=== PATIENT | female | born 1950 | race Caucasian/White ===

== ENCOUNTER 2023-01-23 11:30 | Outpatient (OUT) | payer MEDICARE, OTHER, SELFPAY ==
[2023-01-23 12:28] LABS: Hematocrit 35.1 % (36.0-48.0); Hemoglobin 12.2 g/dL (12.0-16.0); Mean Corpuscular HGB Conc 34.8 g/dL (29.9-35.2); Mean Corpuscular Hemoglobin 29.7 pg (26.7-34.0); Mean Corpuscular Volume 85.4 fL (81.0-99.0); Mean Platelet Volume 10.6 fL (9.5-13.5); Platelet Count 220 10^3/uL (150-450); Red Blood Count 4.11 10^6/uL (4.20-5.40); Red Cell Distribution Width 13.6 % (11.0-15.0); White Blood Count 10.2 10^3/uL (4.0-11.0)
[2023-01-23 12:40] LABS: Percent Iron Saturation 22.4 %
[2023-01-23 12:43] LABS: Albumin Level 3.3 g/dL (3.4-5.0); Anion Gap 12.2; BUN Creatinine Ratio 25.8; Calcium 9.7 mg/dL (8.5-10.1); Carbon Dioxide 29.1 mmol/L (21.0-32.0); Chloride 99 mmol/L (98-107); Estimated GFR (African America 28 (>=60); Estimated GFR (Non-African Ame 23 (>=60); Glucose 159 mg/dL (74-106); Magnesium 2.1 mg/dL (1.8-2.4); Phosphorus 4.8 mg/dL (2.6-4.7); Potassium 3.3 mmol/L (3.5-5.1); Sodium 137 mmol/L (136-145); Uric Acid 6.4 mg/dL (2.6-6.0)
[2023-01-23 12:53] LABS: Bilirubin Urine NEGATIVE (NEGATIVE); Blood Urine TRACE-I (NEGATIVE); Clarity Urine CLEAR (CLEAR); Color Urine LT. YELLOW (YELLOW); Glucose Urine UA NEGATIVE (NEGATIVE); Ketones Urine NEGATIVE (NEGATIVE); Leukocyte Esterase Urine NEGATIVE (NEGATIVE); Nitrite Urine NEGATIVE (NEGATIVE); Protein Urine 100 mg/dL (NEG/TRACE); Specific Gravity Urine 1.015 (1.005-1.025); Urobilinogen Urine 0.2 EU/dL (0.2-1.0)
[2023-01-23 13:06] LABS: RBC Urine 0-2 #/HPF (0-2); WBC Urine NONE SEEN #/HPF (NONE SEEN)
[2023-01-23 13:07] LABS: Bacteria Urine NONE SEEN #/HPF (NONE SEEN); Cast Seen? SEEN #/LPF (NONE SEEN); Hyaline Casts Urine FEW; Mucus Urine TRACE (NONE SEEN); Squamous Epithelial Cell Urine RARE #/LPF (NONE/RARE)
[2023-01-23 13:14] LABS: Creatinine Urine Random 53.55 mg/dL (20.00-300.00); Protein Creatinine Ratio Urine 1.21; Total Protein Urine Random 64.6 mg/dL (<=11.9)
[2023-01-24 11:20] LABS: PTH, Intact 41 pg/mL (15-65)
== END 2023-01-23 11:31 | disposition home or self-care (01) ==
LOC: LAB 11:34
PROVIDERS: PCP Family Medicine; Visit Provider Internal Medicine
DX: I12.9 Hypertensive chronic kidney disease with stage 1 through stage 4 chronic kidney disease, or unspecified chronic kidney disease (principal); N18.4 Chronic kidney disease, stage 4 (severe); E11.22 Type 2 diabetes mellitus with diabetic chronic kidney disease; N25.81 Secondary hyperparathyroidism of renal origin; E79.0 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 inflammatory arthritis and tophaceous disease; R31.29 Other microscopic hematuria; E87.6 Hypokalemia; E61.1 Iron deficiency
CPT/HCPCS: 36415; 80069; 81001; 82306; 82570; 82728; 83540; 83550; 83735; 83970; 84156; 84550; 85027

== ENCOUNTER 2023-05-23 09:23 | Outpatient (OUT) | payer MEDICARE, OTHER, SELFPAY ==
[2023-05-23 09:51] LABS: Hematocrit 36.2 % (36.0-48.0); Hemoglobin 12.3 g/dL (12.0-16.0); Mean Corpuscular Hemoglobin 28.8 pg (26.7-34.0); Mean Corpuscular Volume 84.8 fL (81.0-99.0); Mean Platelet Volume 10.8 fL (9.5-13.5); Platelet Count 224 10^3/uL (150-450); Red Blood Count 4.27 10^6/uL (4.20-5.40); Red Cell Distribution Width 13.8 % (11.0-15.0)
[2023-05-23 09:57] LABS: Bilirubin Urine NEGATIVE (NEGATIVE); Blood Urine SMALL (NEGATIVE); Clarity Urine CLEAR (CLEAR); Color Urine LT. YELLOW (YELLOW); Glucose Urine UA NEGATIVE (NEGATIVE); Ketones Urine NEGATIVE (NEGATIVE); Leukocyte Esterase Urine NEGATIVE (NEGATIVE); Nitrite Urine NEGATIVE (NEGATIVE); Protein Urine 100 mg/dL (NEG/TRACE); Urobilinogen Urine 0.2 EU/dL (0.2-1.0); pH Urine 5.5 (5.0-9.0)
[2023-05-23 10:01] LABS: Creatinine Urine Random 95.45 mg/dL (20.00-300.00); Protein Creatinine Ratio Urine 1.08; Total Protein Urine Random 102.7 mg/dL (<=11.9)
[2023-05-23 10:05] LABS: Bacteria Urine NONE SEEN #/HPF (NONE SEEN); Crystals Seen? None Seen #/HPF (None Seen); Mucus Urine NONE SEEN (NONE SEEN); RBC Urine 0-2 #/HPF (0-2); Squamous Epithelial Cell Urine RARE #/LPF (NONE/RARE); WBC Urine NONE SEEN #/HPF (NONE SEEN)
[2023-05-23 10:06] LABS: Cast Seen? SEEN #/LPF (NONE SEEN); Hyaline Casts Urine RARE
[2023-05-23 10:14] LABS: Albumin Level 3.2 g/dL (3.4-5.0); Anion Gap 12.5; BUN Creatinine Ratio 23.5; Calcium 9.4 mg/dL (8.5-10.1); Carbon Dioxide 30.5 mmol/L (21.0-32.0); Chloride 96 mmol/L (98-107); Estimated GFR (African America 29 (>=60); Estimated GFR (Non-African Ame 24 (>=60); Glucose 135 mg/dL (74-106); Phosphorus 4.6 mg/dL (2.6-4.7); Sodium 136 mmol/L (136-145); Uric Acid 5.5 mg/dL (2.6-6.0)
[2023-05-23 11:47] LABS: Percent Iron Saturation 18.3 %
[2023-05-24 12:08] LABS: PTH, Intact 32 pg/mL (15-65)
== END 2023-05-23 09:24 | disposition home or self-care (01) ==
LOC: LAB 09:23
PROVIDERS: PCP Family Medicine; Visit Provider Internal Medicine
DX: N18.4 Chronic kidney disease, stage 4 (severe) (principal); I12.9 Hypertensive chronic kidney disease with stage 1 through stage 4 chronic kidney disease, or unspecified chronic kidney disease; E11.22 Type 2 diabetes mellitus with diabetic chronic kidney disease; N25.81 Secondary hyperparathyroidism of renal origin; E79.0 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 inflammatory arthritis and tophaceous disease; R31.29 Other microscopic hematuria; E87.6 Hypokalemia; D63.1 Anemia in chronic kidney disease
CPT/HCPCS: 36415; 80069; 81001; 82306; 82570; 82728; 83540; 83550; 83735; 83970; 84156; 84550; 85027

== ENCOUNTER 2023-05-26 10:14 | Outpatient (OUT) | payer MEDICARE, OTHER, SELFPAY ==
--- NOTE | 2023-05-26 10:17 | MM_ITS ---
Patient Name: MADY ESTRELLA MR#: [id number] : 1950 Exam Date: 05/26/2023 Ordering Doctor: DR ROCCO GALINDO D.O. RADIOLOGY REPORT PROCEDURE: MM TOMOSYNTHESIS SCREENING BI COMPARISON: MG MAMM SCREEN 3D STIVEN CAD, 12/29/2020. MG MAMM SCREEN STIVEN W CAD, 11/13/2018. MG MAMM SCREEN STIVEN W CAD, 06/09/2017. MG MAMM STIVEN SCRN W CAD DIG, 05/25/2016. INDICATIONS: Screening Calculator Name NCI Breast Cancer Risk Assessment Tool 5 Year Breast Cancer Risk 1.60% Lifetime Breast Cancer Risk 4.10% Personal Breast Cancer No Personal Ovarian Cancer No Treatments None Family Cancers None LOCATION: [facility] BREAST COMPOSITION: Scattered areas fibroglandular density. FINDINGS: DIAGNOSTIC CATEGORY 1--NEGATIVE. RIGHT BREAST: No significant suspicious finding. No significant change has occurred. LEFT BREAST: No significant suspicious finding. No significant change has occurred. RECOMMENDATIONS: ROUTINE MAMMOGRAM AND CLINICAL EVALUATION IN 12 MONTHS. PLEASE NOTE: A NORMAL MAMMOGRAM DOES NOT EXCLUDE THE POSSIBILITY OF BREAST CANCER. A CLINICALLY SUSPICIOUS PALPABLE LUMP SHOULD BE BIOPSIED. Dictated by: Loco Michelle M.D. on 05/31/2023 at 11:45 Approved by: Loco Michelle M.D. on 05/31/2023 at 11:52
== END 2023-05-26 10:15 | disposition home or self-care (01) ==
LOC: MAMMO 10:14
PROVIDERS: PCP Family Medicine; Visit Provider Family Medicine
DX: Z12.31 Encounter for screening mammogram for malignant neoplasm of breast (principal); E11.21 Type 2 diabetes mellitus with diabetic nephropathy; E03.9 Hypothyroidism, unspecified
CPT/HCPCS: 77063; 77067

== ENCOUNTER 2023-08-09 10:04 | Outpatient (OUT) | payer MEDICARE, OTHER, SELFPAY ==
--- OUTSIDE RECORDS SUMMARY | 2023-08-09 10:20 | XMS_ITS | CCD ---
Author Name Unknown Address [address] [place] [address] Organization [facility] Care Team Providers Care Rehabilitation Caseworker Name Role Phone JOHN PERDOMO Referring Unavailable PERDOMO, JOHN Primary Care Unavailable MOUKARBKARTHIK SEPULVEDA V Attending Unavailable MOUKARBEL, KARTHIK Resendiz Admitting Unavailable Mary Grace, Geneva Unavailable JOSIE, DR JOHN Mcdonough Primary Care Unavailable BOBBY, CARMINA Consulting Unavailable BOBBY, CARMINA Admitting Unavailable BOBBY, CARMINA Attending Unavailable PERDOMO, DR JOHN Mcdonough Primary Care Unavailable PERDOMO, DR JOHN Mcdonough Admitting Unavailable PERDOMO, DR JOHN Mcdonough Attending Unavailable PERDOMO, DR JOHN Mcdonough Consulting Unavailable PERDOMO, DR JOHN Mcdonough Primary Care Unavailable MARY GRACEGENEVA Admitting Unavailable MARY GRACEGENEVA Attending Unavailable MARY GRACE, GENEVA Consulting Unavailable PERDOMO, DR JOHN Mcdonough Primary Care Unavailable PERDOMO, DR JOHN Mcdonough Admitting Unavailable PERDOMO, DR JOHN Mcdonough Attending Unavailable PERDOMO, DR JOHN Mcdonough Consulting Unavailable NEFCY, BETSY Consulting Unavailable PERDOMO, DR JOHN Mcdonough Primary Care Unavailable MOUKARBEL, DR ANGELES Consulting Unavailable MOUKARBEL, DR ANGELES Admitting Unavailable MOUKARBEL, DR ANGELES Attending Unavailable MOUKARBEL, DR ANGELES Consulting Unavailable MOUKARBEL, DR ANGELES Admitting Unavailable MOUKARBEL, DR ANGELES Attending Unavailable PERDOMO, DR JOHN Mcdonough Primary Care Unavailable BOBBY, CARMINA Admitting Unavailable BOBBY, CARMINA Attending Unavailable BOBBY, CARMINA Consulting Unavailable MARY GRACE, GENEVA Primary Care Unavailable PERDOMO, DR JOHN Mcdonough Primary Care Unavailable BOBBY, CARMINA Consulting Unavailable BOBBY, CARMINA Admitting Unavailable BOBBY, CARMINA Attending Unavailable PERDOMO, DR JOHN Mcdonough Primary Care Unavailable TIMMIS, DR CARRION Consulting Unavailable TIMMIS, DR CARRION Admitting Unavailable TIMMIS, DR CARRION Attending Unavailable ZIEBER, DR RENETTA Abreu Consulting Unavailable MARY GRACE, GENEVA Consulting Unavailable MARY GRACE, GENEVA Admitting Unavailable MARY GRACE, GENEVA Attending Unavailable PERDOMO, DR JOHN Mcdonough Primary Care Unavailable PERDOMO, DR JOHN Mcdonough Primary Care Unavailable MOUKARBEL, DR ANGELES Consulting Unavailable MOUKARBEL, DR ANGELES Admitting Unavailable MOUKARBEL, DR ANGELES Attending Unavailable PERDOMO, DR JOHN Mcdonough Primary Care Unavailable MOUKARBEL, DR ANGELES Attending Unavailable MOUKARBEL, DR ANGELES Consulting Unavailable MOUKARBEL, DR ANGELES Admitting Unavailable PERDOMO, DR JOHN Mcdonough Primary Care Unavailable SAMSA ., THANIA Admitting Unavailable SAMSA ., THANIA Attending Unavailable SAMSA ., THANIA Consulting Unavailable PERDOMO, DR JOHN Mcdonough Primary Care Unavailable MARY GRACE, GENEVA Consulting Unavailable MARY GRACE, GENEVA Admitting Unavailable MARY GRACE, GENEVA Attending Unavailable MOUKARBEL, DR ANGELES Consulting Unavailable MOUKARBEL, DR ANGELES Admitting Unavailable MOUKARBEL, DR ANGELES Attending Unavailable PERDOMO, DR JOHN Mcdonough Primary Care Unavailable PERDOMO, DR JOHN Mcdonough Primary Care Unavailable PERDOMO, DR JOHN Mcdonough Referring Unavailable MARY GRACE, GENEVA Consulting Unavailable MARY GRACE, GENEVA Admitting Unavailable MARY GRACE, GENEVA Attending Unavailable BOBBY, CARMINA Admitting Unavailable BOBBY, CARMINA Attending Unavailable MARY GRACE, GENEVA Primary Care Unavailable ZIEBER, DR RENETTA Abreu Consulting Unavailable BOBBY, CARMINA Consulting Unavailable MOUKARBEL, DR ANGELES Consulting Unavailable MOUKARBEL, DR ANGELES Admitting Unavailable MOUKARBEL, DR ANGELES Attending Unavailable PERDOMO, DR JOHN Mcdonough Primary Care Unavailable PERDOMO, DR JOHN Mcdonough Primary Care Unavailable BOBBY, CARMINA Consulting Unavailable BOBBY, CARMINA Admitting Unavailable BOBBY, CARMINA Attending Unavailable PERDOMO, DR JOHN Mcdonough Primary Care Unavailable MARY GRACE, GENEVA Admitting Unavailable MARY GRACE, GENEVA Attending Unavailable MARY GRACE, GENEVA Consulting Unavailable MOUKARBEL, KARTHIK Attending Unavailable MOUKARBEL, KARTHIK Attending Unavailable BOBBY, CARMINA Attending Unavailable Allergies Allergy Classification Reported Allergen(s) Allergy Type Date of Onset Reaction(s) Facility (2 sources) Erythromycin; Translations: [ERYTHROMYCIN] Drug Allergy 1 [facility] Repository (2 sources) HYDROmorphone Drug Allergy 1 [facility] Repository (2 sources) Penicillins; Translations: [PENICILLINS] Drug allergy (disorder) 1 [facility] Repository (20 sources) Erythromycin Drug Allergy anaphylaxis [facility] Other (20 sources) HYDROmorphone; Translations: [HYDROMORPHONE] Drug Allergy 2 Unknown [facility] Repository (20 sources) Penicillin Drug Allergy Unknown [facility] Other (20 sources) Penicillin G Benzathine Drug allergy hives [facility] [place] Other (2 sources) Erythromycin; Translations: [ERYTHROMYCIN BASE] Drug Allergy 0 [facility] Repository (1 source) Penicillin Drug Allergy [facility] Repository (2 sources) Spironolactone Drug Allergy rash [facility] Other Medications Current Medications Medication Drug Class(es) Dates Sig (Normalized) Sig (Original) allopurinol 100 mg oral tablet (20 sources) Xanthine Oxidase Inhibitor take 1 tablet by mouth every twenty-four hours Allopurinol 100 MG 1 tablet Orally Once a day for 90 day(s) Active amLODIPine 10 mg oral tablet (20 sources) Dihydropyridine Calcium Channel Ranjit take 1 tablet by mouth every twenty-four hours amLODIPine Besylate 10 MG 1 tablet Orally Once a day Active aspirin 81 mg delayed release oral tablet (20 sources) Platelet Aggregation Inhibitor, Nonsteroidal Anti-inflammatory Drug take 1 tablet by mouth every twenty-four hours Aspirin 81 81 MG 1 tablet Orally Once a day Active take 1 tablet by mouth once alayna y Aspirin 81 81 MG 1 tablet Orally Once a day Active take 1 tablet by mouth once alayna y Aspirin 81 81 MG 1 tablet Orally Once a day Active take 1 tablet by mouth every oth day Aspirin 81 81 MG 1 tablet Orally EVERY OTHER DAY Active atorvastatin 40 mg oral tablet (20 sources) HMG-CoA Reductase Inhibitor take 1 tablet by mouth every twenty-four hours Atorvastatin Calcium 40 MG 1 tablet Orally Once a day Active Basaglar KwikPen 100 units/mL (20 sources) Basaglar KwikPen 100 units/mL 15 units SQ three times a day prn *please review for potential _update for e-prescription and drug interaction check* Active bimatoprost 0.1 mg/ml ophthalmic solution (3 sources) Prostaglandin Analog take 1 drop(s) into the eye(s) once daily in the evening Lumigan 0.01 % 1 drop into affected eye in the evening Ophthalmic Once a day Active bumetanide 2 mg oral tablet (20 sources) Loop Diuretic take 1 tablet by mouth twice daily Bumetanide 2 MG 1 1/2 TABLETS Orally TWICE A DAY Active take 0.5 tablet by mouth twice d aily Bumetanide 2 MG 1/2 TABLET Orally TWICE A DAY Active clopidogrel 75 mg oral tablet (3 sources) P2Y12 Platelet Inhibitor take 1 tablet b y mouth every twenty-four hours Clopidogrel Bisulfate 75 MG 1 tablet Orally Once a day Active cycloSPORINE 0.5 mg/ml ophthalmic suspension (20 sources) Calcineurin Inhibitor Immunosuppressant take 1 drop(s) into the eye(s) once daily Restasis 0.05 % 1 drop into affected eye Ophthalmic ONCE A DAY Active take 1 drop(s) into the eye(s) once daily Restasis 0.05 % 1 drop into affected eye Ophthalmic ONCE A DAY Active dorzolamide (6 sources) Carbonic Anhydrase Inhibitor take 1 drop(s) into the eye(s) three times daily Dorzolamide HCl 2 % 1 drop into affected eye Ophthalmic Three times a day Active take 1 drop(s) into the eye(s) three times daily Dorzolamide HCl 2 % 1 drop into affected eye Ophthalmic Three times a day Active Dorzolamide HCl Active dorzolamide 20 mg/ml / timolol 5 mg/ml ophthalmic solution (2 sources) Carbonic Anhydrase Inhibitor, beta-Adrenergic Ranjit Dorzolamide HCl-Timolol Mal 2-0.5 % 1 drop into affected eye Ophthalmic Twice a day Active doxazosin 4 mg oral tablet (20 sources) alpha-Adrenergic Ranjit take 1 tablet b y mouth twice daily Doxazosin Mesylate 4 MG 1 1/2 TABLETS Orally TWICE A DAY Active ergocalciferol 1.25 mg oral capsule (20 sources) Provitamin D2 Compound take 1 capsule by mouth every week Vitamin D (Ergocalciferol) 1.25 MG (24742 UT) TAKE 1 CAPSULE BY MOUTH ONE TIME PER WEEK for 84 Active take 1 capsule by mo uth every other week Ergocalciferol 1.25 MG (75082 UT) 1 caps ule Orally Q2 week for 90 days Active ferrous sulfate 325 mg oral tablet (20 sources) take 1 tablet by yossi th every other day Ferrous Sulfate 325 (65 Fe) MG TAKE 1 TABLET BY MOUTH EVERY OTHER DAY for 90 Active take 1 tablet by mouth every oth er day Ferrous Sulfate 325 (65 Fe) MG TAKE 1 TABLET BY MOUTH EVERY OTHER DAY for 90 Active Ferrous Sulfate 325 (65 Fe) MG TAKE 1 TABLET BY MOUTH EVERY OTHER DAY FOR 90 DAYS for 90 Active hydrALAZINE hydrochloride 25 mg oral tablet (20 sources) Arteriolar Vasodilator Start: 09-20-2021 take 1 tablet by mouth every twelve hours hydrALAZINE HCl 25 MG 1 tablet with food Orally bid for 90 day(s) Aug, Active take 1 tablet by yossi th every eight hours hydrALAZINE HCl 25 MG 1 tablet with food Orally Three times a day for 90 day(s) Active Iron (3 sources) Iron 325 (65 Fe) MG TAKE 1 TABLET BY MOUTH EVERY OTHER DAY Orally EVERY OTHER DAY for 90 days Active take 1 tablet by mouth every oth er day Iron 325 (65 Fe) MG TAKE 1 TABLET BY MOUTH EVERY OTHER DAY for 90 Active isosorbide dinitrate 30 mg oral tablet (5 sources) Nitrate Vasodilator take 1 tablet by yossi th every twenty-four hours Isosorbide Dinitrate 30 MG 1 tablet Orally ONCE A DAY Active take 1 tablet by yossi th every twenty-four hours Isosorbide Dinitrate 40 MG 1 tablet Orally ONCE A DAY Active latanoprost 0.05 mg/ml ophthalmic solution (12 sources) Prostaglandin Analog take 1 drop(s) into the eye(s) once daily in the evening Latanoprost 0.005 % 1 drop into affected eye in the evening Ophthalmic Once a day Active take 1 drop(s) into the eye(s) once daily in the evening Latanoprost 0.005 % 1 drop into affected eye in the evening Ophthalmic Once a day Active levothyroxine sodium 0.05 mg oral tablet (20 sources) l-Thyroxine take 1 tablet by mouth once daily in the morning Levothyroxine Sodium 50 MCG 1 tablet in the morning on an empty stomach Orally Once a day Active take 1 tablet by yossi th once daily in the morning Levothyroxine Sodium 50 MCG 1 tablet in the morning on an empty stomach Orally Once a day Active take 1 tablet by yossi th once daily in the morning Levothyroxine Sodium 25 MCG 1 tablet in the morning on an empty stomach Orally Once a day Active metOLazone 2.5 mg oral tablet (20 sources) Thiazide-like Diuretic metOLazon e 2.5 MG 1 tablet Orally MONDAY, MONDAY, MONDAY NEEDED Active metoprolol tartrate 50 mg oral tablet (20 sources) beta-Adrenergic Ranjit Metoprol ol Tartrate 50 MG 1 1/2 tablet with food Orally Twice a day Active potassium chloride 20 meq extended release oral tablet (20 sources) take 2 tablets by mouth three times daily Potassium Chloride ER 20 MEQ TAKE 2 TABLETS BY MOUTH 3 TIMES A DAY for 90 Active Klor-Con M20 20 MEQ TAKE 2 TABLETS BY MOUTH IN THE MORNING, 2 TABLETS AT NOON, AND 1 TABLET IN THE EVENING for 90 Active take 2 tablets by mo uth every twelve hours Potassium Chloride ER 20 MEQ 2 Tablet Orally bid for 90 days Active Problems Active Problems Problem Classification Problem Date Documented Date Episodic/Chronic Chronic kidney disease (20 sources) Chronic kidney disease stage 4; Translations: [Chronic kidney disease, stage 4 (severe)] Onset: 1 Resolved: 2 Chronic Congestive heart failure; nonhypertensive (11 sources) Chronic diastolic (congestive) heart failure; Translations: [Acute combined systolic (congestive) and diastolic (congestive) heart failure] Onset: 2 Chronic Coronary atherosclerosis and other heart disease (5 sources) Atherosclerotic heart disease of [place] coronary artery without angina pectoris; Translations: [Atherosclerotic heart disease of [place] coronary artery with other forms of angina pectoris] Onset: 2 Chronic Deficiency and other anemia (20 sources) Anemia of renal disease; Translations: [Anemia in chronic kidney disease] Chronic Deficiency and other anemia (2 sources) Anemia in chronic kidney disease Chronic Diabetes mellitus with complications (20 sources) Disorder of kidney due to diabetes mellitus; Translations: [Type 2 diabetes mellitus with diabetic chronic kidney disease] Onset: 1 Resolved: 2 Chronic Essential hypertension (7 sources) Essential (primary) hypertension; Translations: [ESSENTIAL PRIMARY HYPERTENSION] Onset: 2 Chronic Fluid and electrolyte disorders (13 sources) Hypokalemia; Translations: [HYPOKALEMIA] Onset: 1 Resolved: 2 Episodic Genitourinary symptoms and ill-defined conditions (8 sources) Other microscopic hematuria; Translations: [OTHER MICROSCOPIC HEMATURIA] Onset: 1 Resolved: 2 Episodic Heart valve disorders (1 source) Rheumatic disorders of both mitral and tricuspid valves; Translations: [RHEUMATIC D/O MITRAL TRICUSPID VALV] Onset: 2 Chronic Hypertension with complications and secondary hypertension (20 sources) Chronic kidney disease due to hypertension; Translations: [Hypertensive chronic kidney disease with stage 1 through stage 4 chronic kidney disease, or unspecified chronic kidney disease] Onset: 1 Resolved: 2 Chronic Nutritional deficiencies (6 sources) Iron deficiency; Translations: [IRON DEFICIENCY] Onset: 1 Resolved: 2 Episodic Other circulatory disease (2 sources) Orthostatic hypotension; Translations: [Orthostatic hypotension] Onset: 4 Episodic Other connective tissue disease (20 sources) Full thickness rotator cuff tear; Translations: [Complete rotator cuff tear or rupture of left shoulder, not specified as traumatic] Episodic Other diseases of kidney and ureters (20 sources) Secondary hyperparathyroidism; Translations: [Secondary hyperparathyroidism of renal origin] Chronic Other diseases of kidney and ureters (8 sources) Secondary hyperparathyroidism of renal origin; Translations: [SEC HYPERPARATHYROIDISM RENAL ORIGN] Onset: 1 Resolved: 2 Chronic Other non-traumatic joint disorders (20 sources) Arthralgia of the lower leg; Translations: [Right knee pain] Episodic Other nutritional; endocrine; and metabolic disorders (9 sources) 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 inflammatory arthritis and tophaceous disease; Translations: [HU W/O SIGNS IA AND TOPHACEOUS DZ] Onset: 1 Resolved: 2 Episodic Thyroid disorders (20 sources) Non-toxic multinodular goiter; Translations: [Nontoxic multinodular goiter] Onset: 2 Chronic Unclassified (3 sources) CONTACT W/AND (SUSP) EXPOS COVID-19; Translations: [CONTACT W/AND (SUSP) EXPOS COVID-19] Onset: 2 Past or Other Problems Problem Classification Problem Date Documented Da te Episodic/Chronic Coronary atherosclerosis and other heart disease (2 sources) Presence of aortocoronary bypass graft; Translations: [Presence of aortocoronary bypass graft] Onset: 09-12-2022 Episodic Other bone disease and musculoskeletal deformities (1 source) Other specified disorders of bone density and structure, right forearm; Translations: [OTH D/O BONE DEN STRUCT RT FORARM] Onset: 06-04-2022 Episodic Other lower respiratory disease (7 sources) Shortness of breath; Translations: [SHORTNESS OF BREATH] Onset: 12-10-2021 Episodic Other lower respiratory disease (5 sources) Other forms of dyspnea; Translations: [OTHER FORMS OF DYSPNEA] Onset: 05-14-2022 Episodic Other non-traumatic joint disorders (4 sources) Pain in right elbow; Translations: [PAIN IN RIGHT ELBOW] Onset: 06-01-2022 Episodic Residual codes; unclassified (1 source) Localized edema; Translations: [LOCALIZED EDEMA] Onset: 06-18-2022 Episodic Unclassified (20 sources) Sprain of right knee; Translations: [Right knee sprain] Unclassified (1 source) CONTACT W/AND (SUSP) EXPOS COVID-19; Translations: [CONTACT W/AND (SUSP) EXPOS COVID-19] Onset: 12-07-2021 Results Test Name Value Interpretation Reference Range Facility Office Visiton 08-04-2023 Follow-up visit Claudia Estrella 1950 F Date Provider Department Center 08/04/2023 KARTHIK MACKAY AD[facility] Family History Problem Relation Age of Onset Heart attack Mother Heart failure Mother Heart attack Father Family Status - Relation Status Age at Mother Father Level of Service:88682 [place] OFFICE/OUTPATIENT ESTABLISHED MOD MDM 30 MIN Normal [facility] Office Visiton 02-24-2023 Follow-up visit Claudia Estrella 1950 F Date Provider Department Center 02/24/2023 CARMINA REAVES ADY [facility] Family History Problem Relation Age of Onset Heart attack Mother Heart failure Mother Heart attack Father Family Status - Relation Status Age at Mother Father Level of Service:44707 [place] OFFICE/OUTPATIENT ESTABLISHED LOW MDM 20-29 MIN Normal [facility] Orders Onlyon 12-09-2022 Orders Only [id number] Claudia Estrella Kaetrin 1950 F Date Provider Department Center 12/09/2022 FRANCIS MUÑOZ [facility] Family History Problem Relation Age of Onset Heart attack Mother Heart failure Mother Heart attack Father Family Status - Relation Status Age at Mother Father Normal [facility] 36on 10-26-2022 36 [facility] lab called to report a critical BNP of 1458. Normal [facility] BNPon 10-26-2022 Natriuretic peptide B (Bld) [Mass/Vol] 1458.0 pg/mL Critically high <=900.0 [facility] Comment on above: Performed By: #### L IPID, TSH, FT3 #### [facility] [address] [address] [address] Andrey Hargrove CBC AUTO DIFFon 10-26-2022 BASO # 0.1 103/ul Normal 0.0-0.1 [facility] Comment on above: Performed By: #### V ITAD, FETIBC, FERR #### [facility] [address] [address] [address] Andrey Hargrove Basophils/100 WBC (Bld) 0.7 % Normal 0.2-2.0 [facility] Comment on above: Performed By: #### V ITAD, FETIBC, FERR #### [facility] [address] [address] [address] Andrey Hargrove EO # 0.4 103/ul Normal 0.0-0.7 [facility] Comment on above: Performed By: #### V ITAD, FETIBC, FERR #### [facility] [address] [address] [address] Andrey Hargrove Eosinophils/100 WBC (Bld) 4.6 % Normal 0.9-7.0 [facility] Comment on above: Performed By: #### V ITAD, FETIBC, FERR #### [facility] [address] [address] [address] Andrey Hargrove Erythrocyte distribution width (RBC) [Ratio] 13.7 % Normal 11.0-15.0 [facility] Comment on above: Performed By: #### V ITAD, FETIBC, FERR #### [facility] [address] [place] [address] Dr. Andrey Hargrove Hematocrit (Bld) [Volume fraction] 35.5 % Critically low 36.0-48.0 [facility] Comment on above: Performed By: #### V ITAD, FETIBC, FERR #### [facility] [address] [place] [address] Dr. Andrey Hargrove Hemoglobin (Bld) [Mass/Vol] 12.0 g/dL Normal 12.0-16.0 [facility] Comment on above: Performed By: #### V ITAD, FETIBC, FERR #### [facility] [address] [place] [address] Dr. Andrey Hargrove IG # 0.02 10e3/ul Normal 0.00-0.03 [facility] Comment on above: Performed By: #### V ITAD, FETIBC, FERR #### [facility] [address] [place] [address] Dr. Andrey Hargrove IG % 0.2 % Normal 0.0-0.5 [facility] Comment on above: Performed By: #### V ITAD, FETIBC, FERR #### [facility] [address] [place] [address] Dr. Andrey Hargrove LYMPH # 1.5 103/ul Normal 1.2-3.8 [facility] Comment on above: Performed By: #### V ITAD, FETIBC, FERR #### [facility] [address] [place] [address] Dr. Andrey Hargrove Lymphocytes/100 WBC (Bld) 18.1 % Critically low 20.5-60.0 [facility] Comment on above: Performed By: #### V ITAD, FETIBC, FERR #### [facility] [address] [place] [address] Dr. Andrey Hargrove MANUAL DIFF REQ NO Normal [facility] Comment on above: Performed By: #### V ITAD, FETIBC, FERR #### [facility] [address] [place] [address] Dr. Andrey Hargrove MCH (RBC) [Entitic mass] 29.3 pg Normal 26.7-34.0 [facility] Comment on above: Performed By: #### V ITAD, FETIBC, FERR #### [facility] [address] [place] [address] Dr. Andrey Hargrove MCHC (RBC) [Mass/Vol] 33.8 g/dL Normal 29.9-35.2 [facility] Comment on above: Performed By: #### V ITAD, FETIBC, FERR #### [facility] [address] [place] [address] Dr. Andrey Hargrove MCV (RBC) [Entitic vol] 86.8 fL Normal 81.0-99.0 [facility] Comment on above: Performed By: #### V ITAD, FETIBC, FERR #### [facility] [address] [place] [address] Dr. Andrey Hargrove MONO # 0.7 103/ul Normal 0.3-0.8 [facility] Comment on above: Performed By: #### V ITAD, FETIBC, FERR #### [facility] [address] [place] [address] Dr. Andrey Hargrove Monocytes/100 WBC (Bld) 7.9 % Normal 1.7-12.0 [facility] Comment on above: Performed By: #### V ITAD, FETIBC, FERR #### [facility] [address] [place] [address] Dr. Andrey Hargrove NEUT # 5.7 103/ul Normal 1.4-6.5 [facility] Comment on above: Performed By: #### V ITAD, FETIBC, FERR #### [facility] [address] [place] [address] Dr. Andrey Hargrove Neutrophils/100 WBC (Bld) 68.5 % Normal 43.0-75.0 [facility] Comment on above: Performed By: #### V ITAD, FETIBC, FERR #### [facility] [address] [place] [address] Dr. Andrey Hargrove Platelet mean volume (Bld) [Entitic vol] 10.4 fL Normal 9.5-13.5 [facility] Comment on above: Performed By: #### V ITSHAQ, FETIBC, FERR #### [facility] [address] [place] [address] Dr. Andrey Hargrove PLT 204 103/ul Normal 150-450 [facility] Comment on above: Performed By: #### V ITAD, FETIBC, FERR #### [facility] [address] [place] [address] Dr. Andrey Hargrove RBC 4.09 106/ul Critically low 4.20-5.40 [facility] Comment on above: Performed By: #### V ITSHAQ, JOSEC, FERR #### [facility] [address] [place] [address] Dr. Andrey Hargrove WBC 8.3 103/ul Normal 4.0-11.0 [facility] Comment on above: Performed By: #### V CAPRICE, JOSEC, FERR #### [facility] [address] [place] [address] Dr. Andrey Hargrove PROF CHEM 8 (BAS METB)on Anion gap [Moles/Vol] 11.1 mmol/L Normal [facility] Comment on above: Performed By: #### L IPID, TSH, FT3 #### [facility] [address] [place] [address] Dr. Andrey Hargrove Calcium [Mass/Vol] 9.2 mg/dL Normal 8.5-10.1 [facility] Comment on above: Performed By: #### L IPID, TSH, FT3 #### [facility] [address] [place] [address] Dr. Andrey Hargrove Chloride [Moles/Vol] 102 mmol/L Normal 98-107 [facility] Comment on above: Performed By: #### L IPID, TSH, FT3 #### [facility] [address] [place] [address] Dr. Andrey Hargrove CO2 [Moles/Vol] 31.2 mmol/L Normal 21.0-32.0 [facility] Comment on above: Performed By: #### L IPID, TSH, FT3 #### [facility] [address] [place] [address] Dr. Andrey Hargrove Creatinine [Mass/Vol] 1.79 mg/dL Critically high 0.55-1.02 [facility] Comment on above: Performed By: #### L IPID, TSH, FT3 #### [facility] [address] [place] [address] Dr. Andrey Hargrove EGFR-AF QATARI 34 mL/min/1.73m2 Critically low >=60 [facility] Comment on above: Performed By: #### L IPID, TSH, FT3 #### [facility] [address] [place] [address] Dr. Andrey Hargrove EGFR-NON AF QATARI 28 mL/min/1.73m2 Critically low >=60 [facility] Comment on above: Performed By: #### L IPID, TSH, FT3 #### [facility] [address] [place] [address] Dr. Andrey Hargrove Glucose [Mass/Vol] 148 mg/dL Critically high 74-106 [facility] Comment on above: Performed By: #### L IPID, TSH, FT3 #### [facility] [address] [place] [address] Dr. Andrey Hargrove Potassium [Moles/Vol] 3.3 mmol/L Critically low 3.5-5.1 [facility] Comment on above: Performed By: #### L IPID, TSH, FT3 #### [facility] [address] [place] [address] Dr. Andrey Hargrove Sodium [Moles/Vol] 141 mmol/L Normal 136-145 [facility] Comment on above: Performed By: #### L IPID, TSH, FT3 #### [facility] [address] [place] [address] Dr. Andrey Hargrove Urea nitrogen [Mass/Vol] 41.0 mg/dL Critically high 7.0-18.0 [facility] Comment on above: Performed By: #### L IPID, TSH, FT3 #### [facility] [address], [place] [address] Dr. Andrey Hargrove Urea nitrogen/Creatinine [Mass ratio] 22.9 mg/mg Normal [facility] Comment on above: Performed By: #### L IPID, TSH, FT3 #### [facility] [address] [place], [place] [address] Dr. Andrey Hargrove Office Visiton 09-12-2022 Follow-up visit [id number] Claudia Estrella 1950 F Date Provider Department Center 09/12/2022 KARTHIK MACKAY [facility] Family History Problem Relation Age of Onset Heart attack Mother Heart failure Mother Heart attack Father Family Status - Relation Status Age at Mother Father Level of Service:[address]27[address] [place] OFFICE/OUTPATIENT ESTABLISHED MOD [facility] 30-39 MIN Reason for Visit and Comments: Coronary Artery Disease [187] Hypertension [029248] Congestive Heart Failure [127] Normal [facility] PTH INTACTon 08-24-2022 PTH, Intact 44 pg/mL Normal 15-65 [facility] Comment on above: Performed By: #### V ITAD, FETIBC, FERR #### [facility] [address] [address] [address] Andrey Hargrove US THYROIDon 08-24-2022 US THYROID EXAMINATION: US THYROID HISTORY: Non-toxic multinodular goiter COMPARISON: Ultrasound thyroid 08/11/2021 FINDINGS: RIGHT LOBE: Heterogeneous echotexture containing a 16 x 11 x 10 mm TR 4 nodule within superior pole, and a 9 x 5 x 4 mm TR 3 nodule within mid body. Additional nonsuspicious nodules are noted. Lobe size: 4.1 x 1.5 x 1.4 cm LEFT LOBE: Slightly heterogeneous echotexture containing a 9 x 6 x 5 mm TR 4 nodule within mid body, and a 6 mm to 3 nodule within inferior pole. Additional nonsuspicious nodules are noted. Lobe size: 3.9 x 2.0 x 1.5 cm ISTHMUS: [Heterogeneous. Normal thickness. Thickness: 3 mm IMPRESSION: 1. No overtly suspicious nodules. Nodules appear stable allowing for slight size difference due to technical variation. TR4 (moderately suspicious): If > 1.0 cm Follow-up ultrasound in 1, 2, 3, and 5 years. If > 1.5 cm fine needle aspiration (FNA). TR3 (mildly suspicious): > 1.5 cm, follow-up ultrasound in 1, 3, and 5 years. > 2.5 cm, fine needle aspiration. Electronically authenticated by: RENETTA RENEE Date: 2022-08-24 16:16 Normal [facility] FERRITINon 08-23-2022 Ferritin [Mass/Vol] 114.0 ng/mL Normal 8.0-252.0 [facility] Comment on above: Performed By: #### V ITAD, FETIBC, FERR #### [facility] [address] [place] [address] Dr. Andrey Hargrove HEMOGRAM AND PLATELon 2022 Hematocrit (Bld) [Volume fraction] 34.9 % Critically low 36.0-48.0 [facility] Comment on above: Performed By: #### V ITAD, FETIBC, FERR #### [facility] [address] [address] [address] Andrey Hargrove Hemoglobin (Bld) [Mass/Vol] 11.8 g/dL Critically low 12.0-16.0 [facility] Comment on above: Performed By: #### V ITAD, FETIBC, FERR #### [facility] [address] [place] [address] Dr. Andrey Hargrove MCH (RBC) [Entitic mass] 28.6 pg Normal 26.7-34.0 [facility] Comment on above: Performed By: #### V ITAD, FETIBC, FERR #### [facility] [address] [place] [address] Dr. Andrey Hargrove MCHC (RBC) [Mass/Vol] 33.8 g/dL Normal 29.9-35.2 [facility] Comment on above: Performed By: #### V ITAD, FETIBC, FERR #### [facility] [address] [place] [address] Dr. Andrey Hargrove MCV (RBC) [Entitic vol] 84.7 fL Normal 81.0-99.0 [facility] Comment on above: Performed By: #### V ITAD, FETIBC, FERR #### [facility] [address] [place] [address] Dr. Andrey Hargrove PLT 215 103/ul Normal 150-450 [facility] Comment on above: Performed By: #### V ITAD, FETIBC, FERR #### [facility] [address] [place] [address] Dr. Andrey Hargrove RBC 4.12 106/ul Critically low 4.20-5.40 [facility] Comment on above: Performed By: #### V ITAD, FETIBC, FERR #### [facility] [address] [place] [address] Dr. Andrey Hargrove WBC 9.2 103/ul Normal 4.0-11.0 [facility] Comment on above: Performed By: #### V ITAD, FETIBC, FERR #### [facility] [address] [place] [address] Dr. Andrey Hargrove IRON AND TIBCon 08-23-2022 % SATURATION 15.4 % Normal [facility] Comment on above: Performed By: #### V ITAD, FETIBC, FERR #### [facility] [address] [place] [address] Dr. Andrey Hargrove Iron [Mass/Vol] 44.0 ug/dL Critically low 50.0-170.0 [facility] Comment on above: Performed By: #### V ITAD, FETIBC, FERR #### [facility] [address] [place] [address] Dr. Andrey Hargrove TIBC DIRECT 286.0 ug/dL Normal 250.0-450.0 [facility] Comment on above: Performed By: #### V ITAD, FETIBC, FERR #### [facility] [address] [place] [address] Dr. Andrey Hargrove MAGNESIUMon 08-23-2022 Magnesium [Mass/Vol] 2.1 mg/dL Normal 1.8-2.4 [facility] Comment on above: Performed By: #### L IPID, TSH, FT3 #### [facility] [address] [place] [address] Dr. Andrey Hargrove RENAL FUNCTION PANELon 08-23 Albumin [Mass/Vol] 3.3 g/dL Critically low 3.4-5.0 [facility] Comment on above: Performed By: #### L IPID, TSH, FT3 #### [facility] [address] [place] [address] Dr. Andrey Hargrove Calcium [Mass/Vol] 9.4 mg/dL Normal 8.5-10.1 [facility] Comment on above: Performed By: #### L IPID, TSH, FT3 #### [facility] [address] [place] [address] Dr. Andrey Hargrove Chloride [Moles/Vol] 103 mmol/L Normal 98-107 [facility] Comment on above: Performed By: #### L IPID, TSH, FT3 #### [facility] [address] [place] [address] Dr. Andrey Hargrove CO2 [Moles/Vol] 26.8 mmol/L Normal 21.0-32.0 [facility] Comment on above: Performed By: #### L IPID, TSH, FT3 #### [facility] [address] [place] [address] Dr. Andrey Hargrove Creatinine [Mass/Vol] 1.94 mg/dL Critically high 0.55-1.02 [facility] Comment on above: Performed By: #### L IPID, TSH, FT3 #### [facility] [address] [place] [address] Dr. Andrey Hargrove EGFR-AF QATARI 31 mL/min/1.73m2 Critically low >=60 [facility] Comment on above: Performed By: #### L IPID, TSH, FT3 #### [facility] [address] [place] [address] Dr. Andrey Hargrove EGFR-NON AF QATARI 25 mL/min/1.73m2 Critically low >=60 [facility] Comment on above: Performed By: #### L IPID, TSH, FT3 #### [facility] [address] [place] [address] Dr. Andrey Hargrove Glucose [Mass/Vol] 166 mg/dL Critically high 74-106 [facility] Comment on above: Performed By: #### L IPID, TSH, FT3 #### [facility] [address] [place] [address] Dr. Andrey Hargrove Phosphate [Mass/Vol] 4.6 mg/dL Normal 2.6-4.7 [facility] Comment on above: Performed By: #### L IPID, TSH, FT3 #### [facility] [address] [place] [address] Dr. Andrey Hargrove Potassium [Moles/Vol] 4.3 mmol/L Normal 3.5-5.1 [facility] Comment on above: Performed By: #### L IPID, TSH, FT3 #### [facility] [address] [place] [address] Dr. Andrey Hargrove Sodium [Moles/Vol] 137 mmol/L Normal 136-145 [facility] Comment on above: Performed By: #### L IPID, TSH, FT3 #### [facility] [address] [place] [address] Dr. Andrey Hargrove Urea nitrogen [Mass/Vol] 39.0 mg/dL Critically high 7.0-18.0 [facility] Comment on above: Performed By: #### L IPID, TSH, FT3 #### [facility] [address] [place] [address] Dr. Andrey Hargrove UA RANDOM W/MICROSCOPICon BACTERIA NONE SEEN Normal NONE SEEN [facility] Comment on above: Performed By: #### V ITAD, FETIBC, FERR #### [facility] [address] [place] [address] Dr. Andrey Hargrove Bilirubin Ql (U) Negative Normal NEGATIVE [facility] Comment on above: Performed By: #### V ITAD, FETIBC, FERR #### [facility] [address] [place] [address] Dr. Andrey Hargrove CAST NONE SEEN Normal NONE SEEN [facility] Comment on above: Performed By: #### V ITAD, FETIBC, FERR #### [facility] [address] [address] [address] Andrey Hargrove Clarity (U) CLEAR Normal CLEAR [facility] Comment on above: Performed By: #### V ITAD, FETIBC, FERR #### [facility] [address] [address] [address] Andrey Hargrove Color (U) LT. YELLOW Normal YELLOW [facility] Comment on above: Performed By: #### V ITAD, FETIBC, FERR #### [facility] [address] [address] [address] Andrey Hargrove Crystals LM Nom (Urine sed) NONE SEEN Normal NONE SEEN [facility] Comment on above: Performed By: #### V ITAD, FETIBC, FERR #### [facility] [address] [place] [address] Dr. Andrey Hargrove Epithelial cells LM Ql (Urine sed) RARE Normal NONE SEEN /RARE [facility] Comment on above: Performed By: #### V ITAD, FETIBC, FERR #### [facility] [address] [place] [address] Dr. Andrey Hargrove Glucose Ql (U) Negative Normal NEGATIVE [facility] [place] [facility] Comment on above: Performed By: #### V ITAD, FETIBC, FERR #### [facility] [address] [place] [address] Dr. Andrey Hargrove Hemoglobin Ql (U) Negative Normal NEGATIVE The [facility] Comment on above: Performed By: #### V ITAD, FETIBC, FERR #### [facility] [address] [place] [address] Dr. Andrey Hargrove Ketones Ql (U) Negative Normal NEGATIVE [facility] [place] [facility] Comment on above: Performed By: #### V ITAD, FETIBC, FERR #### [facility] [address] [place] [address] Dr. Andrey Hargrove LEUKOCYTES Negative Normal NEGATIVE [facility] Comment on above: Performed By: #### V ITAD, FETIBC, FERR #### [facility] [address] [place] [address] Dr. Andrey Hargrove MUCOUS NONE SEEN Normal NONE SEEN [facility] Comment on above: Performed By: #### V ITAD, FETIBC, FERR #### [facility] [address] [place] [address] Dr. Andrey Hargrove Nitrite Ql (U) Negative Normal NEGATIVE [facility] [place] [facility] Comment on above: Performed By: #### V ITAD, FETIBC, FERR #### [facility] [address] [place] [address] Dr. Andrey Hargrove pH (U) 6.5 [pH] Normal 5-9 [facility] Comment on above: Performed By: #### V ITAD, FETIBC, FERR #### [facility] [address] [place] [address] Dr. Andrey Hargrove RBC NONE SEEN Abnormal 0-2 [facility] Comment on above: Performed By: #### V ITAD, FETIBC, FERR #### [facility] [address] [place] [address] Dr. Andrey Hargrove SPEC GRAVITY 1.010 Normal 1.005-<=1.02 5 [facility] Comment on above: Performed By: #### V ITAD, FETIBC, FERR #### [facility] [address] [place] [address] Dr. Andrey Hargrove UA PROTEIN 30 mg/dl Abnormal NEGATIVE/ TRACE [facility] Comment on above: Performed By: #### V ITAD, FETIBC, FERR #### [facility] [address] [place] [address] Dr. Andrey Hargrove Urobilinogen Qn (U) 0.2 {Kelly'U}/dL Normal 0.2 - 1. 0 [facility] Comment on above: Performed By: #### V ITAD, FETIBC, FERR #### [facility] [address] [place] [address] Dr. Andrey Hargrove WBC NONE SEEN Normal NONE SEEN [facility] Comment on above: Performed By: #### V ITAD, FETIBC, FERR #### [facility] [address] [place] [address] Dr. Andrey Hargrove URIC ACID SERUMon 08-23-2022 Urate [Mass/Vol] 5.8 mg/dL Normal 2.6-6.0 [facility] Comment on above: Performed By: #### L IPID, TSH, FT3 #### [facility] [address] [place] [address] Dr. Andrey Hargrove VITAMIN D 25 OHon 08-23-2022 VIT D 25-OH 69.0 ng/mL Normal [facility] Comment on above: Performed By: #### V ITAD, FETIBC, FERR #### [facility] [address] [place] [address] Dr. Andrey Hargrove VIT D RANGES SEE BELOW Normal [facility] Comment on above: Result Comment: <20 ng/mL Vit D deficient 20 - <30 ng/mL Vit D insufficient 30 - 100 ng/mL Vit D sufficient >100 ng/mL Potential Toxicity Performed By: #### V ITAD, FETIBC, FERR #### [facility] [address] [place] [address] Dr. Andrey Hargrove ECHOCARDIO M/2D COMPLETEon 1 08-14-2021 ECHOCARDIO M/2D COMPLETE Patient: CLAUDIA ESTRELLA Exam Date: 06/13/2022 : 1950 Gender:F Ordering : DR KARTHIK FISH M.D. Admission #: [id number] Family : Order #: [id number] CLICK HERE TO VIEW EXAM ECHOCARDIOGRAM REPORT PROCEDURE: CARDIO PULMONARY ECHOCARDIO M/2D COMP INDICATIONS: Shortness of breath, lower extremity edema COMPARISON: None. DESCRIPTION: COMPLETE ECHOCARDIOGRAM Real-time transthoracic echocardiography with 2D, M-mode, spectral and color flow Doppler performed. QUALITY: Technical quality was good. LEFT VENTRICLE: Normal chamber size. Mild concentric left ventricular hypertrophy. Global left ventricular systolic function is normal. Calculated left ventricular ejection fraction is 68% LV EF: DIASTOLIC: Grade II diastolic dysfunction. ATRIAL SEPTUM: LEFT ATRIUM: Moderate dilatation. RIGHT ATRIUM: Mild dilatation. RIGHT VENTRICLE: Normal chamber size. Normal right ventricular systolic function. TRICUSPID VALVE: Normal mobility and thickness. No stenosis with mild regurgitation. Moderate pulmonary hypertension. RVSP is 58 mmHg MITRAL VALVE: Normal mobility and thickness. No mitral valve prolapse. No evidence of mitral valve stenosis. Mitral annular calcification. Mild mitral regurgitation. AORTIC VALVE: Normal trileaflet appearance. Thickened aortic valve. Normal leaflet mobility. No evidence of aortic valve stenosis. DVI 0.63. No aortic regurgitation. AORTIC ROOT: Normal diameter and appearance. The ascending aorta measures 3.1 cm. The aortic root measures 2.7 cm. PULMONIC VALVE: Normal thickness and mobility. No stenosis. Trivial regurgitation. PERICARDIUM: No evidence of pericardial effusion. IVC: Normal size without collapse. PLEURA: CONCLUSION: 1. Mild concentric left trickle hypertrophy. Normal ventricular systolic function. LVEF 65 to 70%. 2. Normal right ventricular size and systolic function. 3. Grade 2 diastolic dysfunction. 4. Mild mitral and tricuspid regurgitation. 5. Moderately elevated right-sided pressures. Adult Echocardiography Procedure Report Left Ventricle LVEDD (3.7 - 5.6 cm): 4.59 cm LVESD (2.2 - 4.0 cm): 3.04 cm LVIVS thickness (0.6 - 1.2 cm): 1.10 cm LVPW thickness (0.5 - 1.0 cm): 1.26 cm e': 0.09 m/s E - e': 18.25 LVOT Max Gradient: 5.83 mm[Hg] Peak Velocity (LVOT): 1.21 m/s Mean Velocity (LVOT): 0.84 m/s LVOT Diameter 1.59 cm Left Ventricular Ejection Fraction: 65-70 % Left Atrium LA Volume Index (2D A2C): 81.81 ml, 81.81 ml Left Atrium Systolic Dimension: 3.64 cm Mitral Valve MV E to A Ratio: 2.21 Mitral Valve A-Wave Peak Velocity: 0.77 m/s Mitral Valve E-Wave Peak Velocity: 1.71 m/s Right Ventricle RV Internal Diastolic Dimension: 3.25 cm Aorta AO Root Diam: 2.71 cm Ascending Ao Diam: 3.13 cm Aortic Valve AoV Area (Peak Rafael): 1.25 cm2, 1.25 cm2 AoV Area (VTI): 1.18 cm2, 1.18 cm2 Peak Velocity(Antegrade Flow): 1.91 m/s Peak Gradient(Antegrade Flow): 14.53 mm[Hg] Mean Velocity(Antegrade Flow): 1.49 m/s Mean Gradient(Antegrade Flow): 9.68 mm[Hg] Velocity Time Integral: 54.67 cm Tricuspid Valve Peak Velocity (Regurgitant Flow): 2.75 m/s, 3.40 m/s, 3.56 m/s Peak Velocity: 0.68 m/s Pulmonic Valve Mean Gradient: 4.46 mm[Hg] Mean Velocity: 0.99 m/s Peak Velocity: 1.36 m/s, 1.59 m/s Peak Gradient: 7.41 mm[Hg], 10.05 mm[Hg] Right Atrium Right Atrium Systolic Pressure: 51.18 ml, 51.18 ml Dictated by: Karthik Fish M.D. on 06/14/2022 at 17:44 Approved by: Karthik Fish M.D. on 06/14/2022 at 17:50 Normal [facility] BNPon 06-10-2022 Natriuretic peptide B (Bld) [Mass/Vol] 4197.0 pg/mL Critically high <=900.0 [facility] Comment on above: Performed By: #### L IPID, TSH, FT3 #### [facility] [address] [place] [address] Dr. Andrey Hargrove PROF CHEM 8 (BAS METB)on Anion gap [Moles/Vol] 10.4 mmol/L Normal [facility] Comment on above: Performed By: #### V ITAD, FETIBC, FERR #### [facility] [address] [address] [address] Andrey Hargrove Calcium [Mass/Vol] 9.4 mg/dL Normal 8.5-10.1 [facility] Comment on above: Performed By: #### V ITAD, FETIBC, FERR #### [facility] [address] [address] [address] Andrey Hargrove Chloride [Moles/Vol] 99 mmol/L Normal 98-107 [facility] Comment on above: Performed By: #### V ITAD, FETIBC, FERR #### [facility] [address] [address] [address] Andrey Hargrove CO2 [Moles/Vol] 33.8 mmol/L Critically high 21.0-32.0 [facility] Comment on above: Performed By: #### V ITAD, FETIBC, FERR #### [facility] [address] [place] [address] Dr. Andrey Hargrove Creatinine [Mass/Vol] 2.09 mg/dL Critically high 0.55-1.02 [facility] Comment on above: Performed By: #### V ITAD, FETIBC, FERR #### [facility] [address] [place] [address] Dr. Andrey Hargrove EGFR-AF QATARI 28 mL/min/1.73m2 Critically low >=60 [facility] Comment on above: Performed By: #### V ITAD, FETIBC, FERR #### [facility] [address] [place] [address] Dr. Andrey Hargrove EGFR-NON AF QATARI 23 mL/min/1.73m2 Critically low >=60 [facility] Comment on above: Performed By: #### V ITAD, FETIBC, FERR #### [facility] [address] [place] [address] Dr. Andrey Hargorve Glucose [Mass/Vol] 75 mg/dL Normal 74-106 [facility] Comment on above: Performed By: #### V ITAD, FETIBC, FERR #### [facility] [address] [place] [address] Dr. Andrey Hargrove Potassium [Moles/Vol] 3.2 mmol/L Critically low 3.5-5.1 [facility] Comment on above: Performed By: #### V ITAD, FETIBC, FERR #### [facility] [address] [place] [address] Dr. Andrey aHrgrove Sodium [Moles/Vol] 140 mmol/L Normal 136-145 [facility] Comment on above: Performed By: #### V ITAD, FETIBC, FERR #### [facility] [address] [place] [address] Dr. Andrey Hargrove Urea nitrogen [Mass/Vol] 61.0 mg/dL Critically high 7.0-18.0 [facility] Comment on above: Performed By: #### V ITAD, FETIBC, FERR #### [facility] [address] [place] [address] Dr. Andrey Hargrove Urea nitrogen/Creatinine [Mass ratio] 29.2 mg/mg Normal [facility] Comment on above: Performed By: #### V ITAD, FETIBC, FERR #### [facility] [address] [place] [address] Dr. Andrey Hargrove BNPon 06-02-2022 Natriuretic peptide B (Bld) [Mass/Vol] 9365.0 pg/mL Critically high <=900.0 [facility] Comment on above: Performed By: #### V ITAD, FETIBC, FERR #### [facility] [address] [place] [address] Dr. Andrey Hargrove PROF CHEM 8 (BAS METB)on Anion gap [Moles/Vol] 10.7 mmol/L Normal [facility] Comment on above: Performed By: #### V ITAD, FETIBC, FERR #### [facility] [address] [place] [address] Dr. Andrey Hargrove Calcium [Mass/Vol] 9.1 mg/dL Normal 8.5-10.1 [facility] Comment on above: Performed By: #### V ITAD, FETIBC, FERR #### [facility] [address] [place] [address] Dr. Andrey Hargrove Chloride [Moles/Vol] 98 mmol/L Normal 98-107 [facility] Comment on above: Performed By: #### V ITAD, FETIBC, FERR #### [facility] [address] [place] [address] Dr. Andrey Hargrove CO2 [Moles/Vol] 29.4 mmol/L Normal 21.0-32.0 [facility] Comment on above: Performed By: #### V ITAD, FETIBC, FERR #### [facility] [address] [place] [address] Dr. Andrey Hargrove Creatinine [Mass/Vol] 2.44 mg/dL Critically high 0.55-1.02 [facility] Comment on above: Performed By: #### V ITAD, FETIBC, FERR #### [facility] [address] [place] [address] Dr. Andrey Hargrove EGFR-AF QATARI 24 mL/min/1.73m2 Critically low >=60 [facility] Comment on above: Performed By: #### V ITAD, FETIBC, FERR #### [facility] [address] [place] [address] Dr. Andrey Hargrove EGFR-NON AF QATARI 20 mL/min/1.73m2 Critically low >=60 [facility] Comment on above: Performed By: #### V ITAD, FETIBC, FERR #### [facility] [address] [place] [address] Dr. Andrey Hargrove Glucose [Mass/Vol] 135 mg/dL Critically high 74-106 [facility] Comment on above: Performed By: #### V ITAD, FETIBC, FERR #### [facility] [address] [place] [address] Dr. Andrey Hargrove Potassium [Moles/Vol] 4.1 mmol/L Normal 3.5-5.1 [facility] Comment on above: Performed By: #### V ITAD, FETIBC, FERR #### [facility] [address] [place] [address] Dr. Andrey Hargrove Sodium [Moles/Vol] 134 mmol/L Critically low 136-145 [facility] Comment on above: Performed By: #### V ITAD, FETIBC, FERR #### [facility] [address] [place] [address] Dr. Andrey Hargrove Urea nitrogen [Mass/Vol] 81.0 mg/dL Critically high 7.0-18.0 [facility] Comment on above: Performed By: #### V ITAD, FETIBC, FERR #### [facility] [address] [place] [address] Dr. Andrey Hargrove Urea nitrogen/Creatinine [Mass ratio] 33.2 mg/mg Normal [facility] Comment on above: Performed By: #### V ITAD, FETIBC, FERR #### [facility] [address] [address] [address] Andrey Hargrove XR ELBOW RT MIN 3 VIEWSon XR ELBOW RT MIN 3 VIEWS EXAM: XR ELBOW RT MIN 3 VIEWS HISTORY: Pain of right elbow joint . The patient fell with an injury 11 days ago. COMPARISON: None. TECHNIQUE: 3 views of the right elbow were obtained. FINDINGS: Diffuse osteopenia is noted. There is no evidence of an acute fracture or dislocation. The joint spaces are intact. There is no evidence of an abnormal joint effusion. A tiny osteophyte arises from the posterior olecranon. Prominent soft tissue swelling along the posterior aspect of the elbow is noted. Significant arterial vascular calcifications are present in the distal arm and proximal forearm. IMPRESSION: No acute fracture or dislocation. Diffuse osteopenia is noted. The joint spaces are intact throughout There is no evidence of a joint effusion. A tiny osteophyte arises from the posterior aspect of the olecranon. Prominent soft tissue swelling is noted posterior to the olecranon, which may indicate soft tissue contusion or possibly inflammatory process. Prominent arterial calcifications are present. Comparison with a previous study may be helpful. Electronically authenticated by: BETSY LAZARO Date: 2022-06-01 17:24 Normal [facility] RENAL FUNCTION PANELon 05-27 Albumin [Mass/Vol] 3.4 g/dL Normal 3.4-5.0 [facility] Comment on above: Performed By: #### L IPID, TSH, FT3 #### [facility] [address] [place] [address] Dr. Andrey Hargrove Calcium [Mass/Vol] 9.1 mg/dL Normal 8.5-10.1 [facility] Comment on above: Performed By: #### L IPID, TSH, FT3 #### [facility] [address] [address] [address] Andrey Hargrove Chloride [Moles/Vol] 99 mmol/L Normal 98-107 [facility] Comment on above: Performed By: #### L IPID, TSH, FT3 #### [facility] [address] [address] [address] Andrey Hargrove CO2 [Moles/Vol] 30.9 mmol/L Normal 21.0-32.0 [facility] Comment on above: Performed By: #### L IPID, TSH, FT3 #### [facility] [address] [address] [address] Andrey Hargrove Creatinine [Mass/Vol] 2.24 mg/dL Critically high 0.55-1.02 [facility] Comment on above: Performed By: #### L IPID, TSH, FT3 #### [facility] [address] [place] [address] Dr. Andrey Hargrove EGFR-AF QATARI 26 mL/min/1.73m2 Critically low >=60 [facility] Comment on above: Performed By: #### L IPID, TSH, FT3 #### [facility] [address] [place] [address] Dr. Andrey Hargrove EGFR-NON AF QATARI 22 mL/min/1.73m2 Critically low >=60 [facility] Comment on above: Performed By: #### L IPID, TSH, FT3 #### [facility] [address] [place] [address] Dr. Andrey Hargrove Glucose [Mass/Vol] 94 mg/dL Normal 74-106 [facility] Comment on above: Performed By: #### L IPID, TSH, FT3 #### [facility] [address] [place] [address] Dr. Andrey Hargrove Phosphate [Mass/Vol] 4.7 mg/dL Normal 2.6-4.7 [facility] Comment on above: Performed By: #### L IPID, TSH, FT3 #### [facility] [address] [place] [address] Dr. Andrey Hargrove Potassium [Moles/Vol] 3.5 mmol/L Normal 3.5-5.1 [facility] Comment on above: Performed By: #### L IPID, TSH, FT3 #### [facility] [address] [place] [address] Dr. Andrey Hargrove Sodium [Moles/Vol] 136 mmol/L Normal 136-145 [facility] Comment on above: Performed By: #### L IPID, TSH, FT3 #### [facility] [address] [place] [address] Dr. Andrey Hargrove Urea nitrogen [Mass/Vol] 72.0 mg/dL Critically high 7.0-18.0 [facility] Comment on above: Performed By: #### L IPID, TSH, FT3 #### [facility] [address] [place] [address] Dr. Andrey Hargrove PTH INTACTon 05-24-2022 PTH, Intact 24 pg/mL Normal 15-65 [facility] Comment on above: Performed By: #### L IPID, TSH, FT3 #### [facility] [address] [place] [address] Dr. Andrey Hargrove FERRITINon 05-23-2022 Ferritin [Mass/Vol] 190.0 ng/mL Normal 8.0-252.0 [facility] Comment on above: Performed By: #### L IPID, TSH, FT3 #### [facility] [address] [place] [address] Dr. Andrey Hargrove FREE T3on 05-23-2022 FREE T3 1.96 pg/mlL Critically low 2.18-3.98 [facility] Comment on above: Performed By: #### L IPID, TSH, FT3 #### [facility] [address] [place] [address] Dr. Andrey Hargrove FREE T4on 05-23-2022 Free T4 [Mass/Vol] 1.33 ng/dL Normal 0.76-1.46 [facility] Comment on above: Performed By: #### L IPID, TSH, FT3 #### [facility] [address] [place] [address] Dr. Andrey Hargrove HEMOGRAM AND PLATELon 2021 Hematocrit (Bld) [Volume fraction] 30.6 % Critically low 36.0-48.0 [facility] Comment on above: Performed By: #### V ITAD, FETIBC, FERR #### [facility] [address] [place] [address] Dr. Andrey Hargrove Hemoglobin (Bld) [Mass/Vol] 10.4 g/dL Critically low 12.0-16.0 [facility] Comment on above: Performed By: #### V ITAD, FETIBC, FERR #### [facility] [address] [place] [address] Dr. Andrey Hargrove MCH (RBC) [Entitic mass] 28.6 pg Normal 26.7-34.0 [facility] Comment on above: Performed By: #### V ITAD, FETIBC, FERR #### [facility] [address] [place] [address] Dr. Andrey Hargrove MCHC (RBC) [Mass/Vol] 34.0 g/dL Normal 29.9-35.2 [facility] Comment on above: Performed By: #### V ITAD, FETIBC, FERR #### [facility] [address] [place] [address] Dr. Andrey Hargrove MCV (RBC) [Entitic vol] 84.1 fL Normal 81.0-99.0 [facility] Comment on above: Performed By: #### V ITAD, FETIBC, FERR #### [facility] [address] [place] [address] Dr. Andrey Hargrove PLT 179 103/ul Normal 150-450 [facility] Comment on above: Performed By: #### V ITAD, FETIBC, FERR #### [facility] [address] [place] [address] Dr. Andrey Hargrove RBC 3.64 106/ul Critically low 4.20-5.40 [facility] Comment on above: Performed By: #### V ITAD, FETIBC, FERR #### [facility] [address] [place] [address] Dr. Andrey Hargrove WBC 9.5 103/ul Normal 4.0-11.0 [facility] Comment on above: Performed By: #### V ITAD, FETIBC, FERR #### [facility] [address] [place] [address] Dr. Andrey Hargrove IRON AND TIBCon 05-23-2022 % SATURATION 15.9 % Normal [facility] Comment on above: Performed By: #### L IPID, TSH, FT3 #### [facility] [address] [address] [address] Andrey Hargrove Iron [Mass/Vol] 44.0 ug/dL Critically low 50.0-170.0 [facility] Comment on above: Performed By: #### L IPID, TSH, FT3 #### [facility] [address] [address] [address] Andrey Hargrove TIBC DIRECT 276.0 ug/dL Normal 250.0-450.0 [facility] Comment on above: Performed By: #### L IPID, TSH, FT3 #### [facility] [address] [address] [address] Andrey Hargrove LIPID PROFILEon 05-23-2022 CHOL-HDL RATIO NORM SEE BELOW Normal [facility] Comment on above: Result Comment: 3.3 - 4.4 LOW RISK 4.4 - 7.1 AVERAGE RISK 7.1 - 11.0 MODERATE RISK >11.0 HIGH RISK Performed By: #### L IPID, TSH, FT3 #### [facility] [address] [address] [address] Andrey Hargrove Cholesterol [Mass/Vol] 129 mg/dL Normal <=200 [facility] Comment on above: Performed By: #### L IPID, TSH, FT3 #### [facility] [address] [address] [address] Andrey Hargrove Cholesterol in HDL [Mass/Vol] 55 mg/dL Normal 40-60 [facility] Comment on above: Performed By: #### L IPID, TSH, FT3 #### [facility] [address] [address] [address] Andrey Hargrove Cholesterol in LDL [Mass/Vol] 59.6 mg/dL Normal [facility] Comment on above: Performed By: #### L IPID, TSH, FT3 #### [facility] [address] [address] [address] Andrey Hargrove Cholesterol.total/Cho lesterol in HDL [Mass ratio] 2.3 {ratio} Normal [facility] Comment on above: Performed By: #### L IPID, TSH, FT3 #### [facility] [address] [address] [address] Andrey Hargrove HDL NORMAL > or = 60 mg/dl - LO W CARDIOVASCULAR RISK <40 mg/dl - HIGH CARDIOVASCULAR RISK Normal [facility] Comment on above: Performed By: #### L IPID, TSH, FT3 #### [facility] [address] [address] [address] Andrey Hargrove LDL CALC NORMAL SEE BELOW Normal [facility] Comment on above: Result Comment: <100 mg/dl OPTIMAL 100 - 129 mg/dl NEAR OR ABOVE OPTIMAL 130 - 159 mg/dl BORDERLINE HIGH 160 - 189 mg/dl HIGH >190 mg/dl VERY HIGH Performed By: #### L IPID, TSH, FT3 #### [facility] [address] [address] [address] Andrey Hargrove Triglyceride [Mass/Vol] 72 mg/dL Normal <=150 [facility] Comment on above: Performed By: #### L IPID, TSH, FT3 #### [facility] [address] [address] [address] Andrey Hargrove VLDL CALC 14.4 mg/dL Normal [facility] Comment on above: Performed By: #### L IPID, TSH, FT3 #### [facility] [address] [place] [address] Dr. Andrey Hargrove MAGNESIUMon 05-23-2022 Magnesium [Mass/Vol] 2.2 mg/dL Normal 1.8-2.4 [facility] Comment on above: Performed By: #### L IPID, TSH, FT3 #### [facility] [address] [address] [address] Andrey Hargrove RENAL FUNCTION PANELon 05-23 Albumin [Mass/Vol] 3.5 g/dL Normal 3.4-5.0 [facility] Comment on above: Performed By: #### L IPID, TSH, FT3 #### [facility] [address] [place] [address] Dr. Andrey Hargrove Calcium [Mass/Vol] 10.0 mg/dL Normal 8.5-10.1 [facility] Comment on above: Performed By: #### L IPID, TSH, FT3 #### [facility] [address] [address] [address] Andrey Hargrove Chloride [Moles/Vol] 98 mmol/L Normal 98-107 [facility] Comment on above: Performed By: #### L IPID, TSH, FT3 #### [facility] [address] [place] [address] Dr. Andrey Hargrove CO2 [Moles/Vol] 34.3 mmol/L Critically high 21.0-32.0 [facility] Comment on above: Performed By: #### L IPID, TSH, FT3 #### [facility] [address] [place] [address] Dr. Andrey Hargrove Creatinine [Mass/Vol] 2.24 mg/dL Critically high 0.55-1.02 [facility] Comment on above: Performed By: #### L IPID, TSH, FT3 #### [facility] [address] [place] [address] Dr. Andrey Hargrove EGFR-AF QATARI 26 mL/min/1.73m2 Critically low >=60 [facility] Comment on above: Performed By: #### L IPID, TSH, FT3 #### [facility] [address] [place] [address] Dr. Andrey Hargrove EGFR-NON AF QATARI 22 mL/min/1.73m2 Critically low >=60 [facility] Comment on above: Performed By: #### L IPID, TSH, FT3 #### [facility] [address] [place] [address] Dr. Andrey Hargrove Glucose [Mass/Vol] 123 mg/dL Critically high 74-106 [facility] Comment on above: Performed By: #### L IPID, TSH, FT3 #### [facility] [address] [place] [address] Dr. Andrey Hargrove Phosphate [Mass/Vol] 5.2 mg/dL Critically high 2.6-4.7 [facility] Comment on above: Performed By: #### L IPID, TSH, FT3 #### [facility] [address] [place] [address] Dr. Andrey Hargrove Potassium [Moles/Vol] 3.0 mmol/L Critically low 3.5-5.1 [facility] Comment on above: Performed By: #### L IPID, TSH, FT3 #### [facility] [address] [place] [address] Dr. Andrey Hargrove Sodium [Moles/Vol] 137 mmol/L Normal 136-145 [facility] Comment on above: Performed By: #### L IPID, TSH, FT3 #### [facility] [address] [place] [address] Dr. Andrey Hargrove Urea nitrogen [Mass/Vol] 80.0 mg/dL Critically high 7.0-18.0 [facility] Comment on above: Performed By: #### L IPID, TSH, FT3 #### [facility] [address] [place] [address] Dr. Andrey Hargrove TSHon 05-23-2022 TSH 4.652 uIU/mL Critically high 0.358-3.740 [facility] Comment on above: Performed By: #### L IPID, TSH, FT3 #### [facility] [address] [place] [address] Dr. Andrey Hargrove UA RANDOM W/MICROSCOPICon BACTERIA NONE SEEN Normal NONE SEEN [facility] Comment on above: Performed By: #### V ITAD, FETIBC, FERR #### [facility] [address] [place] [address] Dr. Andrey Hargrove Bilirubin Ql (U) Negative Normal NEGATIVE [facility] Comment on above: Performed By: #### V ITAD, FETIBC, FERR #### [facility] [address] [place] [address] Dr. Andrey Hargrove CAST NONE SEEN Normal NONE SEEN [facility] Comment on above: Performed By: #### V ITAD, FETIBC, FERR #### [facility] [address] [place] [address] Dr. Andrey Hargrove Clarity (U) CLEAR Normal CLEAR [facility] Comment on above: Performed By: #### V ITAD, FETIBC, FERR #### [facility] [address] [address] [address] Andrey Hargrove Color (U) LT. YELLOW Normal YELLOW [facility] Comment on above: Performed By: #### V ITAD, FETIBC, FERR #### [facility] [address] [address] [address] Andrey Hargrove Crystals LM Nom (Urine sed) NONE SEEN Normal NONE SEEN [facility] Comment on above: Performed By: #### V ITAD, FETIBC, FERR #### [facility] [address] [address] [address] Andrey Hargrove Epithelial cells LM Ql (Urine sed) FEW Abnormal NONE SEEN /RARE [facility] Comment on above: Performed By: #### V ITAD, FETIBC, FERR #### [facility] [address] [place] [address] Dr. Andrey Hargrove Glucose Ql (U) Negative Normal NEGATIVE [facility] Comment on above: Performed By: #### V ITAD, FETIBC, FERR #### [facility] [address] [address] [address] Andrey Hargrove Hemoglobin Ql (U) TRACE-INTACT Abnormal NEGATIVE [facility] Comment on above: Performed By: #### V ITAD, FETIBC, FERR #### [facility] [address] [address] [address] Andrey Hargrove Ketones Ql (U) Negative Normal NEGATIVE [facility] Comment on above: Performed By: #### V ITAD, FETIBC, FERR #### [facility] [address] [address] [address] Andrey Hargrove LEUKOCYTES SMALL Abnormal NEGATIVE [facility] Comment on above: Performed By: #### V ITAD, FETIBC, FERR #### [facility] [address] [address] [address] Andrey Hargrove MUCOUS NONE SEEN Normal NONE SEEN [facility] Comment on above: Performed By: #### V ITAD, FETIBC, FERR #### [facility] [address] [address] [address] Andrey Hargrove Nitrite Ql (U) Negative Normal NEGATIVE [facility] Comment on above: Performed By: #### V ITAD, FETIBC, FERR #### [facility] [address] [place] [address] Dr. Andrey Hargrove pH (U) 5.5 [pH] Normal 5-9 [facility] Comment on above: Performed By: #### V ITAD, FETIBC, FERR #### [facility] [address] [place] [address] Dr. Andrey Hargrove RBC 0-2 Normal 0-2 [facility] Comment on above: Performed By: #### V ITAD, FETIBC, FERR #### [facility] [address] [place] [address] Dr. Andrey Hargrove SPEC GRAVITY 1.010 Normal 1.005-<=1.02 5 [facility] Comment on above: Performed By: #### V ITSHAQ, FETIBC, FERR #### [facility] [address] [place] [address] Dr. Andrey Hargrove UA PROTEIN TRACE Normal NEGATIVE/ TRACE [facility] Comment on above: Performed By: #### V ITSHAQ, FETIBC, FERR #### [facility] [address] [place] [address] Dr. Andrey Hargrove Urobilinogen Qn (U) 0.2 {Kelly'U}/dL Normal 0.2 - 1. 0 [facility] Comment on above: Performed By: #### V ITAD, FETIBC, FERR #### [facility] [address] [place] [address] Dr. Andrey Hargrove WBC 0-2 Abnormal NONE SEEN [facility] Comment on above: Performed By: #### V ITAD, FETIBC, FERR #### [facility] [address] [place] [address] Dr. Andrey Hargrove URIC ACID SERUMon 05-23-2022 Urate [Mass/Vol] 7.4 mg/dL Critically high 2.6-6.0 [facility] Comment on above: Performed By: #### L IPID, TSH, FT3 #### [facility] [address] [place] [address] Dr. Andrey Hargrove URINE T PROTEIN CREAT RATIOo n 05-23-2022 Protein (U) [Mass/Vol] 39.9 mg/dL Critically high <=12.0 [facility] Comment on above: Performed By: #### U RTPCR #### [facility] [address] [place] [address] Dr. Andrey Hargrove UR PROT CREAT RAT 0.64 Normal [facility] Comment on above: Performed By: #### U RTPCR #### [facility] [address] [place] [address] Dr. Andrey Hargrove URINE CREAT 62.30 mg/dL Normal 20.00-300.00 [facility] Comment on above: Performed By: #### U RTPCR #### [facility] [address] [place] [address] Dr. Andrey Hargrove VITAMIN D 25 OHon 05-23-2022 VIT D 25-OH 90.7 ng/mL Normal [facility] Comment on above: Performed By: #### L IPID, TSH, FT3 #### [facility] [address] [place] [address] Dr. Andrey Hargrove VIT D RANGES SEE BELOW Normal [facility] Comment on above: Result Comment: <20 ng/mL Vit D deficient 20 - <30 ng/mL Vit D insufficient 30 - 100 ng/mL Vit D sufficient >100 ng/mL Potential Toxicity Performed By: #### L IPID, TSH, FT3 #### [facility] [address] [place] [address] Dr. Andrey Hargrove MAGNESIUMon 05-14-2022 Magnesium [Mass/Vol] 2.1 mg/dL Normal 1.8-2.4 [facility] Comment on above: Performed By: #### L IPID, TSH, FT3 #### [facility] [address] [place] [address] Dr. Andrey Hargrove PROF CHEM 8 (BAS METB)on Anion gap [Moles/Vol] 12.0 mmol/L Normal [facility] Comment on above: Performed By: #### L IPID, TSH, FT3 #### [facility] [address] [address] [address] Andrey Hargrove Calcium [Mass/Vol] 9.0 mg/dL Normal 8.5-10.1 [facility] Comment on above: Performed By: #### L IPID, TSH, FT3 #### [facility] [address] [address] [address] Andrey Hargrove Chloride [Moles/Vol] 97 mmol/L Critically low 98-107 [facility] Comment on above: Performed By: #### L IPID, TSH, FT3 #### [facility] [address] [place] [address] Dr. Andrey Hargrove CO2 [Moles/Vol] 30.4 mmol/L Normal 21.0-32.0 [facility] Comment on above: Performed By: #### L IPID, TSH, FT3 #### [facility] [address] [place] [address] Dr. Andrey Hargrove Creatinine [Mass/Vol] 2.28 mg/dL Critically high 0.55-1.02 [facility] Comment on above: Performed By: #### L IPID, TSH, FT3 #### [facility] [address] [place] [address] Dr. Andrey Hargrove EGFR-AF QATARI 26 mL/min/1.73m2 Critically low >=60 [facility] Comment on above: Performed By: #### L IPID, TSH, FT3 #### [facility] [address] [place] [address] Dr. Andrey Hargrove EGFR-NON AF QATARI 21 mL/min/1.73m2 Critically low >=60 [facility] Comment on above: Performed By: #### L IPID, TSH, FT3 #### [facility] [address] [address] [address] Andrey Hargrove Glucose [Mass/Vol] 190 mg/dL Critically high 74-106 [facility] Comment on above: Performed By: #### L IPID, TSH, FT3 #### [facility] [address] [address] [address] Andrey Hargrove Potassium [Moles/Vol] 3.4 mmol/L Critically low 3.5-5.1 [facility] Comment on above: Performed By: #### L IPID, TSH, FT3 #### [facility] [address] [address] [address] Andrey Hargrove Sodium [Moles/Vol] 136 mmol/L Normal 136-145 [facility] Comment on above: Performed By: #### L IPID, TSH, FT3 #### [facility] [address] [address] [address] Andrey Hargrove Urea nitrogen [Mass/Vol] 73.0 mg/dL Critically high 7.0-18.0 [facility] Comment on above: Performed By: #### L IPID, TSH, FT3 #### [facility] [address] [address] [address] Andrey Hargrove Urea nitrogen/Creatinine [Mass ratio] 32.0 mg/mg Normal [facility] Comment on above: Performed By: #### L IPID, TSH, FT3 #### [facility] [address] [place] [address] Dr. Andrey Hargrove XR CHEST 2 Von 05-12-2022 XR CHEST 2 V EXAMINATION: XR CHES T 2 V HISTORY: Chronic diastolic heart failure , shortness of breath COMPARISON: XR chest 10/22/2021 FINDINGS: LUNGS: Mild peripheral septal thickening, left greater than right. VASCULATURE: No increased pulmonary vasculature. PLEURA: No pneumothorax, effusion, or pleural thickening. CARDIAC: No cardiomegaly or cardiac silhouette abnormality. MEDIASTINUM: Prior sternotomy. No abnormal widening. BONES: No fracture or visible bone lesion. OTHER: Negative. IMPRESSION: 1. Suspect mild pulmonary edema; fluid overload versus congestive heart failure. Electronically authenticated by: RENETTA RENEE Date: 2022-05-12 09:12 Normal [facility] BNPon 05-11-2022 Natriuretic peptide B (Bld) [Mass/Vol] 7074.0 pg/mL Critically high <=900.0 [facility] Comment on above: Performed By: #### V ITAD, FETIBC, FERR #### [facility] [address] [place] [address] Dr. Andrey Hargrove CBC AUTO DIFFon 05-11-2022 BASO # 0.1 103/ul Normal 0.0-0.1 [facility] Comment on above: Performed By: #### V ITAD, FETIBC, FERR #### [facility] [address] [place] [address] Dr. Andrey Hargrove Basophils/100 WBC (Bld) 0.7 % Normal 0.2-2.0 [facility] Comment on above: Performed By: #### V ITAD, FETIBC, FERR #### [facility] [address] [place] [address] Dr. Andrey Hargrove EO # 0.3 103/ul Normal 0.0-0.7 [facility] Comment on above: Performed By: #### V ITAD, FETIBC, FERR #### [facility] [address] [place] [address] Dr. Andrey Hargrove Eosinophils/100 WBC (Bld) 3.8 % Normal 0.9-7.0 [facility] Comment on above: Performed By: #### V ITAD, FETIBC, FERR #### [facility] [address] [place] [address] Dr. Andrey Hargrove Erythrocyte distribution width (RBC) [Ratio] 14.7 % Normal 11.0-15.0 [facility] Comment on above: Performed By: #### V ITAD, FETIBC, FERR #### [facility] [address] [place] [address] Dr. Andrey Hargrove Hematocrit (Bld) [Volume fraction] 29.6 % Critically low 36.0-48.0 [facility] Comment on above: Performed By: #### V ITAD, FETIBC, FERR #### [facility] [address] [place] [address] Dr. Andrey Hargrove Hemoglobin (Bld) [Mass/Vol] 9.9 g/dL Critically low 12.0-16.0 [facility] Comment on above: Performed By: #### V ITAD, FETIBC, FERR #### [facility] [address] [place] [address] Dr. Andrey Hargrove IG # 0.03 10e3/ul Normal 0.00-0.03 [facility] Comment on above: Performed By: #### V ITAD, FETIBC, FERR #### [facility] [address] [place] [address] Dr. Andrey Hargrove IG % 0.4 % Normal 0.0-0.5 [facility] Comment on above: Performed By: #### V ITAD, FETIBC, FERR #### [facility] [address] [place] [address] Dr. Andrey Hargrove LYMPH # 1.3 103/ul Normal 1.2-3.8 [facility] Comment on above: Performed By: #### V ITAD, FETIBC, FERR #### [facility] [address] [place] [address] Dr. Andrey Hargrove Lymphocytes/100 WBC (Bld) 16.3 % Critically low 20.5-60.0 [facility] Comment on above: Performed By: #### V ITAD, FETIBC, FERR #### [facility] [address] [place] [address] Dr. Andrey Hargrove MANUAL DIFF REQ NO Normal [facility] Comment on above: Performed By: #### V ITAD, FETIBC, FERR #### [facility] [address] [place] [address] Dr. Andrey Hargrove MCH (RBC) [Entitic mass] 28.7 pg Normal 26.7-34.0 [facility] Comment on above: Performed By: #### V ITAD, FETIBC, FERR #### [facility] [address] [place] [address] Dr. Andrey Hargrove MCHC (RBC) [Mass/Vol] 33.4 g/dL Normal 29.9-35.2 [facility] Comment on above: Performed By: #### V ITAD, FETIBC, FERR #### [facility] [address] [place] [address] Dr. Andrey Hargrove MCV (RBC) [Entitic vol] 85.8 fL Normal 81.0-99.0 [facility] Comment on above: Performed By: #### V ITAD, FETIBC, FERR #### [facility] [address] [place] [address] Dr. Andrey Hargrove MONO # 0.7 103/ul Normal 0.3-0.8 [facility] Comment on above: Performed By: #### V ITAD, FETIBC, FERR #### [facility] [address] [place] [address] Dr. Andrey Hargrove Monocytes/100 WBC (Bld) 8.7 % Normal 1.7-12.0 [facility] Comment on above: Performed By: #### V ITAD, FETIBC, FERR #### [facility] [address] [place] [address] Dr. Andrey Hargrove NEUT # 5.4 103/ul Normal 1.4-6.5 [facility] Comment on above: Performed By: #### V ITAD, FETIBC, FERR #### [facility] [address] [place] [address] Dr. Andrey Hargrove Neutrophils/100 WBC (Bld) 70.1 % Normal 43.0-75.0 [facility] Comment on above: Performed By: #### V ITAD, FETIBC, FERR #### [facility] [address] [place] [address] Dr. Andrey Hargrove Platelet mean volume (Bld) [Entitic vol] 10.9 fL Normal 9.5-13.5 [facility] Comment on above: Performed By: #### V ITAD, FETIBC, FERR #### [facility] [address] [place] [address] Dr. Andrey Hargrove PLT 171 103/ul Normal 150-450 [facility] Comment on above: Performed By: #### V ITAD, FETIBC, FERR #### [facility] [address] [place] [address] Dr. Andrey Hargrove RBC 3.45 106/ul Critically low 4.20-5.40 [facility] Comment on above: Performed By: #### V ITAD, FETIBC, FERR #### [facility] [address] [address] [address] Andrey Hargrove WBC 7.7 103/ul Normal 4.0-11.0 [facility] Comment on above: Performed By: #### V ITAD, FETIBC, FERR #### [facility] [address] [address] [address] Andrey Hargrove PROF CHEM 8 (BAS METB)on Anion gap [Moles/Vol] 9.8 mmol/L Normal [facility] Comment on above: Performed By: #### V ITAD, FETIBC, FERR #### [facility] [address] [place] [address] Dr. Andrey Hargrove Calcium [Mass/Vol] 9.1 mg/dL Normal 8.5-10.1 [facility] Comment on above: Performed By: #### V ITAD, FETIBC, FERR #### [facility] [address] [address] [address] Andrey Hargrove Chloride [Moles/Vol] 96 mmol/L Critically low 98-107 [facility] Comment on above: Performed By: #### V ITAD, FETIBC, FERR #### [facility] [address] [place] [address] Dr. Andrey Hargrove CO2 [Moles/Vol] 30.8 mmol/L Normal 21.0-32.0 [facility] Comment on above: Performed By: #### V ITAD, FETIBC, FERR #### [facility] [address] [place] [address] Dr. Andrey Hargrove Creatinine [Mass/Vol] 2.28 mg/dL Critically high 0.55-1.02 [facility] Comment on above: Performed By: #### V ITAD, FETIBC, FERR #### [facility] [address] [place] [address] Dr. Andrey Hargrove EGFR-AF QATARI 26 mL/min/1.73m2 Critically low >=60 [facility] Comment on above: Performed By: #### V ITAD, FETIBC, FERR #### [facility] [address] [place] [address] Dr. Andrey Hargrove EGFR-NON AF QATARI 21 mL/min/1.73m2 Critically low >=60 [facility] Comment on above: Performed By: #### V ITAD, FETIBC, FERR #### [facility] [address] [place] [address] Dr. Andrey Hargrove Glucose [Mass/Vol] 158 mg/dL Critically high 74-106 [facility] Comment on above: Performed By: #### V ITAD, FETIBC, FERR #### [facility] [address] [place] [address] Dr. Andrey Hargrove Potassium [Moles/Vol] 3.6 mmol/L Normal 3.5-5.1 [facility] Comment on above: Performed By: #### V ITAD, FETIBC, FERR #### [facility] [address] [place] [address] Dr. Andrey Hargrove Sodium [Moles/Vol] 133 mmol/L Critically low 136-145 [facility] Comment on above: Performed By: #### V ITAD, FETIBC, FERR #### [facility] [address] [place] [address] Dr. Andrey Hargrove Urea nitrogen [Mass/Vol] 66.0 mg/dL Critically high 7.0-18.0 [facility] Comment on above: Performed By: #### V ITAD, FETIBC, FERR #### [facility] [address] [place] [address] Dr. Andrey Hargrove Urea nitrogen/Creatinine [Mass ratio] 28.9 mg/mg Normal [facility] Comment on above: Performed By: #### V ITAD, FETIBC, FERR #### [facility] [address] [place] [address] Dr. Andrey Hargrove MAGNESIUMon 03-17-2022 Magnesium [Mass/Vol] 1.9 mg/dL Normal 1.8-2.4 [facility] Comment on above: Performed By: #### V ITAD, FETIBC, FERR #### [facility] [address] [place] [address] Dr. Andrey Hargrove PROF CHEM 8 (BAS METB)on Anion gap [Moles/Vol] 11.7 mmol/L Normal [facility] Comment on above: Performed By: #### V ITAD, FETIBC, FERR #### [facility] [address] [place] [address] Dr. Andrey Hargrove Calcium [Mass/Vol] 9.4 mg/dL Normal 8.5-10.1 [facility] Comment on above: Performed By: #### V ITAD, FETIBC, FERR #### [facility] [address] [place] [address] Dr. Andrey Hargrove Chloride [Moles/Vol] 97 mmol/L Critically low 98-107 [facility] Comment on above: Performed By: #### V ITAD, FETIBC, FERR #### [facility] [address] [place] [address] Dr. Andrey Hargrove CO2 [Moles/Vol] 29.0 mmol/L Normal 21.0-32.0 [facility] Comment on above: Performed By: #### V ITAD, FETIBC, FERR #### [facility] [address] [place] [address] Dr. Andrey Hargrove Creatinine [Mass/Vol] 2.02 mg/dL Critically high 0.55-1.02 [facility] Comment on above: Performed By: #### V ITAD, FETIBC, FERR #### [facility] [address] [place] [address] Dr. Andrey Hargrove EGFR-AF QATARI 30 mL/min/1.73m2 Critically low >=60 [facility] Comment on above: Performed By: #### V ITAD, FETIBC, FERR #### [facility] [address] [place] [address] Dr. Andrey Hargrove EGFR-NON AF QATARI 24 mL/min/1.73m2 Critically low >=60 [facility] Comment on above: Performed By: #### V ITAD, FETIBC, FERR #### [facility] [address] [place] [address] Dr. Andrey Hargrove Glucose [Mass/Vol] 204 mg/dL Critically high 74-106 [facility] Comment on above: Performed By: #### V ITAD, FETIBC, FERR #### [facility] [address] [place] [address] Dr. Andrey Hargrove Potassium [Moles/Vol] 3.7 mmol/L Normal 3.5-5.1 [facility] Comment on above: Performed By: #### V ITAD, FETIBC, FERR #### [facility] [address] [place] [address] Dr. Andrey Hargrove Sodium [Moles/Vol] 134 mmol/L Critically low 136-145 [facility] Comment on above: Performed By: #### V ITAD, FETIBC, FERR #### [facility] [address] [place] [address] Dr. Andrey Hargrove Urea nitrogen [Mass/Vol] 60.0 mg/dL Critically high 7.0-18.0 [facility] Comment on above: Performed By: #### V ITAD, FETIBC, FERR #### [facility] [address] [place] [address] Dr. Andrey Hargrove Urea nitrogen/Creatinine [Mass ratio] 29.7 mg/mg Normal [facility] Comment on above: Performed By: #### V ITAD, FETIBC, FERR #### [facility] [address] [place] [address] Dr. Andrey Hargrove PTH INTACTon 01-18-2022 PTH, Intact 51 pg/mL Normal 15-65 [facility] Comment on above: Performed By: #### L IPID, TSH, FT3 #### [facility] [address] [place] [address] Dr. Andrey Hargrove FERRITINon 01-17-2022 Ferritin [Mass/Vol] 133.0 ng/mL Normal 8.0-252.0 [facility] Comment on above: Performed By: #### V ITAD, FETIBC, FERR #### [facility] [address] [place] [address] Dr. Andrey Hargrove HEMOGRAM AND PLATELon 2021 Hematocrit (Bld) [Volume fraction] 31.7 % Critically low 36.0-48.0 [facility] Comment on above: Performed By: #### V ITAD, FETIBC, FERR #### [facility] [address] [place] [address] Dr. Andrey Hargrove Hemoglobin (Bld) [Mass/Vol] 10.2 g/dL Critically low 12.0-16.0 [facility] Comment on above: Performed By: #### V ITAD, FETIBC, FERR #### [facility] [address] [place] [address] Dr. Andrey Hargrove MCH (RBC) [Entitic mass] 28.3 pg Normal 26.7-34.0 [facility] Comment on above: Performed By: #### V ITAD, FETIBC, FERR #### [facility] [address] [place] [address] Dr. Andrey Hargrove MCHC (RBC) [Mass/Vol] 32.2 g/dL Normal 29.9-35.2 [facility] Comment on above: Performed By: #### V ITAD, FETIBC, FERR #### [facility] [address] [place] [address] Dr. Andrey Hargrove MCV (RBC) [Entitic vol] 88.1 fL Normal 81.0-99.0 [facility] Comment on above: Performed By: #### V ITAD, FETIBC, FERR #### [facility] [address] [place] [address] Dr. Andrey Hargrove PLT 198 103/ul Normal 150-450 [facility] Comment on above: Performed By: #### V ITAD, FETIBC, FERR #### [facility] [address] [place] [address] Dr. Andrey Hargrove RBC 3.60 106/ul Critically low 4.20-5.40 [facility] Comment on above: Performed By: #### V ITAD, FETIBC, FERR #### [facility] [address] [place] [address] Dr. Andrey Hargrove WBC 8.5 103/ul Normal 4.0-11.0 [facility] Comment on above: Performed By: #### V ITAD, FETIBC, FERR #### [facility] [address] [place] [address] Dr. Andrey Hargrove IRON AND TIBCon 01-17-2022 % SATURATION 17.8 % Normal [facility] Comment on above: Performed By: #### V ITAD, FETIBC, FERR #### [facility] [address] [place] [address] Dr. Andrey Hargrove Iron [Mass/Vol] 47.0 ug/dL Critically low 50.0-170.0 [facility] Comment on above: Performed By: #### V ITAD, FETIBC, FERR #### [facility] [address] [place] [address] Dr. Andrey Hargrove TIBC DIRECT 264.0 ug/dL Normal 250.0-450.0 [facility] Comment on above: Performed By: #### V ITAD, FETIBC, FERR #### [facility] [address] [place] [address] Dr. Andrey Hargrove MAGNESIUMon 01-17-2022 Magnesium [Mass/Vol] 2.0 mg/dL Normal 1.8-2.4 [facility] Comment on above: Performed By: #### V ITAD, FETIBC, FERR #### [facility] [address] [place] [address] Dr. Andrey Hargrove RENAL FUNCTION PANELon 01-17 Albumin [Mass/Vol] 3.3 g/dL Critically low 3.4-5.0 [facility] Comment on above: Performed By: #### V ITAD, FETIBC, FERR #### [facility] [address] [place] [address] Dr. Andrey Hargrove Calcium [Mass/Vol] 9.1 mg/dL Normal 8.5-10.1 [facility] Comment on above: Performed By: #### V ITAD, FETIBC, FERR #### [facility] [address] [place] [address] Dr. Andrey Hargrove Chloride [Moles/Vol] 104 mmol/L Normal 98-107 [facility] Comment on above: Performed By: #### V ITAD, FETIBC, FERR #### [facility] [address] [place] [address] Dr. Andrey Hargrove CO2 [Moles/Vol] 27.6 mmol/L Normal 21.0-32.0 [facility] Comment on above: Performed By: #### V ITAD, FETIBC, FERR #### [facility] [address] [place] [address] Dr. Andrey Hargrove Creatinine [Mass/Vol] 1.71 mg/dL Critically high 0.55-1.02 [facility] Comment on above: Performed By: #### V ITAD, FETIBC, FERR #### [facility] [address] [place] [address] Dr. Andrey Hargrove EGFR-AF QATARI 36 mL/min/1.73m2 Critically low >=60 [facility] Comment on above: Performed By: #### V ITAD, FETIBC, FERR #### [facility] [address] [place] [address] Dr. Andrey Hargrove EGFR-NON AF QATARI 30 mL/min/1.73m2 Critically low >=60 [facility] Comment on above: Performed By: #### V ITAD, FETIBC, FERR #### [facility] [address] [place] [address] Dr. Andrey Hargrove Glucose [Mass/Vol] 115 mg/dL Critically high 74-106 [facility] Comment on above: Performed By: #### V ITAD, FETIBC, FERR #### [facility] [address] [place] [address] Dr. Andrey Hargrove Phosphate [Mass/Vol] 4.3 mg/dL Normal 2.6-4.7 [facility] Comment on above: Performed By: #### V ITAD, FETIBC, FERR #### [facility] [address] [place] [address] Dr. Andrey Hargrove Potassium [Moles/Vol] 3.9 mmol/L Normal 3.5-5.1 [facility] Comment on above: Performed By: #### V ITSHAQ, FETIBC, FERR #### [facility] [address] [place] [address] Dr. Andrey Hargrove Sodium [Moles/Vol] 139 mmol/L Normal 136-145 [facility] Comment on above: Performed By: #### V ITSHAQ, FETIBC, FERR #### [facility] [address] [place] [address] Dr. Andrey Hargrove Urea nitrogen [Mass/Vol] 38.0 mg/dL Critically high 7.0-18.0 [facility] Comment on above: Performed By: #### V ITSHAQ, JOSEC, FERR #### [facility] [address] [place] [address] Dr. Andrey Hargrove UA RANDOM W/MICROSCOPICon BACTERIA NONE SEEN Normal NONE SEEN [facility] Comment on above: Performed By: #### L IPID, TSH, FT3 #### [facility] [address] [place] [address] Dr. Andrey Hargrove Bilirubin Ql (U) Negative Normal NEGATIVE [facility] Comment on above: Performed By: #### L IPID, TSH, FT3 #### [facility] [address] [place] [address] Dr. Andrey Hargrove CAST SEEN Abnormal NONE SEEN [facility] Comment on above: Performed By: #### L IPID, TSH, FT3 #### [facility] [address] [place] [address] Dr. Andrey Hargrove Clarity (U) CLEAR Normal CLEAR [facility] Comment on above: Performed By: #### L IPID, TSH, FT3 #### [facility] [address] [place] [address] Dr. Andrey Hargrove Color (U) LT. YELLOW Normal YELLOW [facility] Comment on above: Performed By: #### L IPID, TSH, FT3 #### [facility] [address] [place] [address] Dr. Andrey Hargrove Crystals LM Nom (Urine sed) NONE SEEN Normal NONE SEEN [facility] Comment on above: Performed By: #### L IPID, TSH, FT3 #### [facility] [address] [address] [address] Andrey Hargrove Epithelial cells LM Ql (Urine sed) FEW Abnormal NONE SEEN /RARE [facility] Comment on above: Performed By: #### L IPID, TSH, FT3 #### [facility] [address] [address] [address] Andrey Hargrove Glucose Ql (U) Negative Normal NEGATIVE [facility] Comment on above: Performed By: #### L IPID, TSH, FT3 #### [facility] [address] [address] [address] Andrey Hargrove Hemoglobin Ql (U) Negative Normal NEGATIVE The [facility] Comment on above: Performed By: #### L IPID, TSH, FT3 #### [facility] [address] [address] [address] Andrey Hargrove HYALINE CAST RARE Normal [facility] Comment on above: Performed By: #### L IPID, TSH, FT3 #### [facility] [address] [place] [address] Dr. Andrey Hargrove Ketones Ql (U) Negative Normal NEGATIVE [facility] Comment on above: Performed By: #### L IPID, TSH, FT3 #### [facility] [address] [address] [address] Andrey Hargrove LEUKOCYTES TRACE Abnormal NEGATIVE [facility] Comment on above: Performed By: #### L IPID, TSH, FT3 #### [facility] [address] [place] [address] Dr. Andrey Hargrove MUCOUS NONE SEEN Normal NONE SEEN [facility] Comment on above: Performed By: #### L IPID, TSH, FT3 #### [facility] [address] [address] [address] Andrey Hargrove Nitrite Ql (U) Negative Normal NEGATIVE [facility] Comment on above: Performed By: #### L IPID, TSH, FT3 #### [facility] [address] [place] [address] Dr. Andrey Hargrove pH (U) 5.0 [pH] Normal 5-9 [facility] Comment on above: Performed By: #### L IPID, TSH, FT3 #### [facility] [address] [place] [address] Dr. Andrey Hargrove RBC 0-2 Normal 0-2 [facility] Comment on above: Performed By: #### L IPID, TSH, FT3 #### [facility] [address] [place] [address] Dr. Andrey Hargrove SPEC GRAVITY 1.020 Normal 1.005-<=1.02 5 [facility] Comment on above: Performed By: #### L IPID, TSH, FT3 #### [facility] [address] [place] [address] Dr. Andrey Hargrove UA PROTEIN Negative Normal NEGATIVE/ TRACE [facility] Comment on above: Performed By: #### L IPID, TSH, FT3 #### [facility] [address] [place] [address] Dr. Andrey Hargrove Urobilinogen Qn (U) 0.2 {Kelly'U}/dL Normal 0.2 - 1. 0 [facility] Comment on above: Performed By: #### L IPID, TSH, FT3 #### [facility] [address] [place] [address] Dr. Andrey Hargrove WBC 2-5 Abnormal NONE SEEN [facility] Comment on above: Performed By: #### L IPID, TSH, FT3 #### [facility] [address] [place] [address] Dr. Andrey Hargrove URIC ACID SERUMon 01-17-2022 Urate [Mass/Vol] 5.4 mg/dL Normal 2.6-6.0 [facility] Comment on above: Performed By: #### V ITAD, FETIBC, FERR #### [facility] [address] [place] [address] Dr. Andrey Hargrove URINE T PROTEIN CREAT RATIOo n 01-17-2022 Protein (U) [Mass/Vol] 15.3 mg/dL Critically high <=12.0 [facility] Comment on above: Performed By: #### V ITAD, FETIBC, FERR #### [facility] [address] [place] [address] Dr. Andrey Hargrove UR PROT CREAT RAT 0.36 Normal [facility] Comment on above: Performed By: #### V ITAD, FETIBC, FERR #### [facility] [address] [place] [address] Dr. Andrey Hargrove URINE CREAT 42.16 mg/dL Normal 20.00-300.00 [facility] Comment on above: Performed By: #### V ITAD, FETIBC, FERR #### [facility] [address] [place] [address] Dr. Andrey Hargrove VITAMIN D 25 OHon 01-17-2022 VIT D 25-OH 73.8 ng/mL Normal [facility] Comment on above: Performed By: #### V ITAD, FETIBC, FERR #### [facility] [address] [place] [address] Dr. Andrey Hargrove VIT D RANGES SEE BELOW Normal [facility] Comment on above: Result Comment: <20 ng/mL Vit D deficient 20 - <30 ng/mL Vit D insufficient 30 - 100 ng/mL Vit D sufficient >100 ng/mL Potential Toxicity Performed By: #### V ITAD, FETIBC, FERR #### [facility] [address] [place] [address] Dr. Andrey Hargrove PROF CHEM 8 (BAS METB)on Anion gap [Moles/Vol] 13.3 mmol/L Normal [facility] Comment on above: Performed By: #### V ITAD, FETIBC, FERR #### [facility] [address] [place] [address] Dr. Andrey Hargrove Calcium [Mass/Vol] 9.5 mg/dL Normal 8.5-10.1 [facility] Comment on above: Performed By: #### V ITAD, FETIBC, FERR #### [facility] [address] [place], [place] [id number] Dr. Andrey Hargrove Chloride [Moles/Vol] 98 mmol/L Normal 98-107 [facility] Comment on above: Performed By: #### V ITAD, FETIBC, FERR #### [facility] [address] [place] [address] Dr. Andrey Hargrove CO2 [Moles/Vol] 25.7 mmol/L Normal 21.0-32.0 [facility] Comment on above: Performed By: #### V ITAD, FETIBC, FERR #### [facility] [address] [place] [address] Dr. Andrey Hargrove Creatinine [Mass/Vol] 2.92 mg/dL Critically high 0.55-1.02 [facility] Comment on above: Performed By: #### V ITAD, FETIBC, FERR #### [facility] [address] [place] [address] Dr. Andrey Hargrove EGFR-AF QATARI 19 mL/min/1.73m2 Critically low >=60 [facility] Comment on above: Performed By: #### V ITAD, FETIBC, FERR #### [facility] [address] [place] [address] Dr. Andrey Hargrove EGFR-NON AF QATARI 16 mL/min/1.73m2 Critically low >=60 [facility] Comment on above: Performed By: #### V ITAD, FETIBC, FERR #### [facility] [address] [place] [address] Dr. Andrey Hargrove Glucose [Mass/Vol] 156 mg/dL Critically high 74-106 [facility] Comment on above: Performed By: #### V ITAD, FETIBC, FERR #### [facility] [address] [place] [address] Dr. Andrey Hargrove Potassium [Moles/Vol] 5.0 mmol/L Normal 3.5-5.1 [facility] Comment on above: Performed By: #### V ITAD, FETIBC, FERR #### [facility] [address] [place] [address] Dr. Andrey Hargrove Sodium [Moles/Vol] 132 mmol/L Critically low 136-145 [facility] Comment on above: Performed By: #### V ITAD, FETIBC, FERR #### [facility] [address] [place], [place] [address] Dr. Andrey Hargrove Urea nitrogen [Mass/Vol] 77.0 mg/dL Critically high 7.0-18.0 [facility] Comment on above: Result Comment: CALL ED TO FRANCIS JUNG RMA Performed By: #### V ITAD, FETIBC, FERR #### [facility] [address] [place], [place] [address] Dr. Andrey Hargrove Urea nitrogen/Creatinine [Mass ratio] 26.4 mg/mg Normal [facility] Comment on above: Performed By: #### V ITAD, FETIBC, FERR #### [facility] [address] [place], [place] [address] Dr. Andrey Hargrove Cardiovascular Lab Reporton 12-10-2021 Cardiovascular Lab Report [facility] Patient Name: [facility] MR #: [id number] Physician: Karthik Larosn Department of [facility] Service Date: 12/09/2021 Division of Birthdate: 1950 Cardiology Room #: Adult Cardiovascular Services [place] [address] Cardiovascular Laboratory Report INDICATION: The patient is a 71-year-old woman with history of coronary artery disease, status post bypass surgery, she has chronic kidney disease, stage IV, and diastolic heart failure. She has shortness of breath and lower extremity edema, requiring intensification of diuretic therapy. She was referred for right heart catheterization for further assessment of her filling pressures. PROCEDURES: 1. Right heart catheterization. 2. Access into right internal jugular vein under ultrasound guidance. METHODS: Procedure was explained to the patient with risks and benefits. She signed informed consent. She was brought to semiconductor lab technician in a fasting state. The right neck area was prepped and draped in usual fashion. Micropuncture technique and ultrasound guidance were used for access in the right internal jugular vein. A 5-Irish x 11 cm sheath was placed. A 5-Irish Dumont catheter was used for right heart catheterization and measurement of pressures and calculation of cardiac output using the estimated Macarnea method. Dumont catheter was removed. Manual compression was used for hemostasis in the right internal jugular vein. She will be observed for 1 hour and then discharged to home. TOTAL SEDATION TIME: 0 minutes. TOTAL FLUORO TIME: 39 seconds. TOTAL AIR KERMA: 3 mGy. TOTAL CONTRAST VOLUME: 0 mL. HEMODYNAMICS: 1. RA 4. 2. RV 37/0, 6. 3. PA 33/12, mean 23. 4. Pulmonary capillary wedge pressure 15, with V-waves up to 27 mmHg. 5. Blood pressure 149/59, mean 76. 6. Cardiac output 5.45. 7. Cardiac index 3.6. 8. PA sat 72%. 9. AO sat 95%. SUMMARY OF THE FINDINGS: 1. Mildly elevated filling pressures. 2. Mild pulmonary hypertension. 3. Preserved cardiac output and cardiac index. 4. Large V-waves seen on the PCW tracing consistent with non-compliant left atrium. RECOMMENDATIONS: 1. The patient's current diuretic therapy will be modified as follows. Bumetanide will be changed from 3 mg in the morning and 2 mg in the evening to 2 mg twice daily, continue spironolactone 25 mg daily and metolazone 2.5 mg once weekly. 2. Follow up in Cardiology Clinic in 2 to 4 weeks. Electronically Signed by: Karthik Fish M.D. 12/11/2021 11:52 A Karthik Fish M.D. Date Dict: 12/09/2021/12:52 P/Karthik Fish M.D. Date Trans: 12/09/2021 11:37 P/joey [id number] cc: John Perdomo D.O. [address] [place] [address] Normal [facility] CBC COMPLETE BLOOD COUNTon 0 12-09-2021 Erythrocyte distribution width (RBC) [Ratio] 13.6 % Normal 11.5-15.0 [facility] Comment on above: Performed By: #### 5 [id number] #### [facility] [address] Hematocrit (Bld) [Volume fraction] 35.6 % Low 36.0-45.0 [facility] Comment on above: Performed By: #### 5 0608 #### [facility] [address] [facility] Hemoglobin (Bld) [Mass/Vol] 11.8 g/dL Low 12.0-15.0 [facility] Comment on above: Performed By: #### 5 0608 #### [facility] [address] [facility]. [address] MCH (RBC) [Entitic mass] 28.6 pg Normal 27.0-33.0 [facility] Comment on above: Performed By: #### 5 0608 #### [facility] [address] [facility] MCHC (RBC) [Mass/Vol] 33.1 g/dL Normal 32.0-35.0 [facility] Comment on above: Performed By: #### 5 0608 #### [facility] [address] MCV (RBC) [Entitic vol] 86.2 fL Normal 82.0-98.0 [facility] Comment on above: Performed By: #### 5 0608 #### [facility] [address] [facility]. [address] Nucleated RBC/100 WBC (Bld) [Ratio] 0 % Normal 0-0 [facility] Comment on above: Performed By: #### 5 [id number] #### [facility] [address] [facility] [place] [address], [facility] PLAT CNT 240 10*3/uL Normal 150-400 [facility] Comment on above: Performed By: #### 5 0608 #### [facility] [address] [facility] [place] [address], [facility] RBC (Bld) [#/Vol] 4.13 10*6/uL Normal 3.80-5.00 [facility] Comment on above: Performed By: #### 5 0608 #### [facility] [address] [place] [address], [facility] WBC (Bld) [#/Vol] 14.13 10*3/uL High 4.00-10.60 [facility] Comment on above: Performed By: #### 5 [id number] #### [facility] [address] [place] [address], [facility] Covid-19 PCR (CVDTB)on SARS-CoV-2 (COVID-19) RNA JAYASHREE+probe Ql (Unsp spec) Not detected Normal NOT DETECTED [facility] Comment on above: Result Comment: This test is not yet approved or cleared by the [place] FDA. When there are no FDA-approved or cleared tests available, and other criteria are met, FDA can make tests available under an emergency access mechanism called an Emergency Use Authorization (EUA). The EUA for this test is supported by the Foster Care Case Manager of Health and Human Service's (HHS's) declaration that circumstances exist to justify the emergency use of in vitro diagnostics for the detection and/or diagnosis of the virus that causes COVID-19. This EUA will remain in effect (meaning this test can be used) for the duration of the COVID-19 declaration justifying emergency of IVDs, unless it is terminated or revoked by FDA (after which the test may no longer be used). When diagnostic testing is negative, the possibility of a false negative should be considered in the context of a patient's recent exposures and the presence of clinical signs and symptoms consistent with SARS-CoV-2. Performed By: #### V DANIA VASQUES, FERR #### [facility] [address] [place] [address] Dr. Andrey Hargrove ECHOCARDIO M/2D COMPLETEon 0 12-06-2021 ECHOCARDIO M/2D COMPLETE Patient: CLAUDIA ESTRELLA Exam Date: 12/06/2021 : 1950 Gender:F Ordering : CARMINA ROSALES Admission #: [id number] Family : DR JOHN PERDOMO D.Dion Order #: [id number] CLICK HERE TO VIEW EXAM ECHOCARDIOGRAM REPORT PROCEDURE: CARDIO PULMONARY ECHOCARDIO M/2D COMP INDICATIONS: Dyspnea, CABG x 2 (2020), hypertension COMPARISON: None. DESCRIPTION: COMPLETE ECHOCARDIOGRAM Real-time transthoracic echocardiography with 2D, M-mode, spectral and color flow Doppler performed. QUALITY: Technical quality was good. LEFT VENTRICLE: Normal chamber size. Borderline left ventricular hypertrophy. Normal systolic function. LV EF: Normal left ventricular ejection fraction, (60%). DIASTOLIC: Grade II diastolic dysfunction. ATRIAL SEPTUM: Visually appears intact. LEFT ATRIUM: Mildly dilated. RIGHT ATRIUM: Mildly dilated. RIGHT VENTRICLE: Normal chamber size. Normal right ventricular systolic function. TRICUSPID VALVE: Normal mobility and thickness. No stenosis with mild regurgitation. Doppler studies reveal mildly (35-45) elevated right sided pressures. RVSP 41 mmHg MITRAL VALVE: Normal mobility and thickness. No evidence of mitral valve stenosis. Moderate mitral annular calcification. Mild mitral regurgitation. AORTIC VALVE: Normal trileaflet appearance. Thickened aortic valve. Normal mobility. No evidence of aortic valve stenosis. DVI 0.69. Trivial aortic regurgitation. AORTIC ROOT: Normal diameter and appearance. Ascending aorta is normal in size. PULMONIC VALVE: Normal thickness and mobility. No stenosis. PERICARDIUM: No evidence of pericardial effusion. IVC: Collapses with inspirations. Dilated IVC (2.41 cm) PLEURA: CONCLUSION: 1. Normal ventricular systolic function. LVEF is 60%. 2. Grade 2 diastolic dysfunction. 3. Mild mitral and tricuspid regurgitation. 4. Mildly elevated right-sided pressures. Adult Echocardiography Procedure Report Left Ventricle LVEDD (3.7 - 5.6 cm): 4.44 cm LVESD (2.2 - 4.0 cm): 3.11 cm LVIVS thickness (0.6 - 1.2 cm): 1.05 cm LVPW thickness (0.5 - 1.0 cm): 8.51 mm e': 11.20 cm/s E - e': 13.80 LVOT Area (cm2): 2.54 cm2 Peak Velocity (LVOT): 105.00 cm/s, 104.00 cm/s LVOT Diameter 1.80 cm Left Ventricular Ejection Fraction: 60 % Left Atrium LA Volume Index (2D A2C): 24.10 ml/m2 Left Atrium Systolic Dimension: 3.50 cm Left Atrium Systolic Area(A2C): 13.80 cm2 Left Atrium Systolic Area(A4C): 14.80 cm2 Left Atrium Systolic Volume(A2C): 40625 mm3 Left Atrium Systolic Volume(A4C): 17488 mm3 Mitral Valve MV E to A Ratio: 1.80 Mitral Valve A-Wave Peak Velocity: 84.90 cm/s Mitral Valve E-Wave Peak Velocity: 154.00 cm/s Deceleration Time: 172 ms Right Ventricle Aorta AO Root Diam: 3.00 cm Aortic Valve Peak Velocity (Antegrade Flow): 156.00 cm/s, 159.00 cm/s AoV Area (Peak Rafael): 1.75 cm2 AoV Area (VTI): 1.77 cm2 Peak Velocity(Antegrade Flow): 160.00 cm/s Peak Gradient(Antegrade Flow): 10 mm[Hg] Mean Velocity(Antegrade Flow): 115.00 cm/s Mean Gradient(Antegrade Flow): 6 mm[Hg] Velocity Time Integral: 41.10 cm Tricuspid Valve Peak Velocity (Regurgitant Flow): 288.00 cm/s Pulmonic Valve Peak Velocity: 136.00 cm/s Peak Gradient: 7 mm[Hg] Right Atrium Dictated by: Karthik Fish M.D. on 12/06/2021 at 17:27 Approved by: Karthik Fish M.D. on 12/06/2021 at 17:31 Normal [facility] BNPon 12-01-2021 Natriuretic peptide B (Bld) [Mass/Vol] 5127.0 pg/mL Critically high <=900.0 [facility] Comment on above: Performed By: #### V ITAD, FETIBC, FERR #### [facility] [address] [place] [address] Dr. Andrey Hargrove PROF CHEM 8 (BAS METB)on Anion gap [Moles/Vol] 13.9 mmol/L Normal [facility] Comment on above: Performed By: #### V ITAD, FETIBC, FERR #### [facility] [address] [place] [address] Dr. Andrey Hargrove Calcium [Mass/Vol] 9.4 mg/dL Normal 8.5-10.1 [facility] Comment on above: Performed By: #### V ITAD, FETIBC, FERR #### [facility] [address] [place] [address] [address] Andrey Hargrove Chloride [Moles/Vol] 99 mmol/L Normal 98-107 [facility] Comment on above: Performed By: #### V ITAD, FETIBC, FERR #### [facility] [address] [place] [address] [address] Andrey Hargrove CO2 [Moles/Vol] 28.4 mmol/L Normal 21.0-32.0 [facility] Comment on above: Performed By: #### V ITAD, FETIBC, FERR #### [facility] [address] [place] [address] Dr. Andrey Hargrove Creatinine [Mass/Vol] 2.11 mg/dL Critically high 0.55-1.02 [facility] Comment on above: Performed By: #### V ITAD, FETIBC, FERR #### [facility] [address] [place] [address] [address] Andrey Hragrove EGFR-AF QATARI 28 mL/min/1.73m2 Critically low >=60 [facility] Comment on above: Performed By: #### V ITAD, FETIBC, FERR #### [facility] [address] [place] [address] [address] Andrey Hargrove EGFR-NON AF QATARI 23 mL/min/1.73m2 Critically low >=60 [facility] Comment on above: Performed By: #### V ITAD, FETIBC, FERR #### [facility] [address] [place] [address] [address] Andrey Hargrove Glucose [Mass/Vol] 179 mg/dL Critically high 74-106 [facility] Comment on above: Performed By: #### V ITAD, FETIBC, FERR #### [facility] [address] [place] [address] [address] Andrey Hargrove Potassium [Moles/Vol] 4.3 mmol/L Normal 3.5-5.1 [facility] Comment on above: Performed By: #### V ITAD, FETIBC, FERR #### [facility] [address] [place] [address] Dr. Andrey Hargrove Sodium [Moles/Vol] 137 mmol/L Normal 136-145 [facility] Comment on above: Performed By: #### V ITAD, FETIBC, FERR #### [facility] [address] [place] [address] Dr. Andrey Hargrove Urea nitrogen [Mass/Vol] 62.0 mg/dL Critically high 7.0-18.0 [facility] Comment on above: Performed By: #### V ITAD, FETIBC, FERR #### [facility] [address] [place] [address] Dr. Andrey Hargrove Urea nitrogen/Creatinine [Mass ratio] 29.4 mg/mg Normal [facility] Comment on above: Performed By: #### V ITAD, FETIBC, FERR #### [facility] [address] [place] [address] Dr. Andrey Hargrove BNPon 11-19-2021 Natriuretic peptide B (Bld) [Mass/Vol] 4773.0 pg/mL Critically high <=900.0 [facility] Comment on above: Performed By: #### V ITAD, FETIBC, FERR #### [facility] [address] [place] [address] Dr. Andrey Hargrove PROF CHEM 8 (BAS METB)on Anion gap [Moles/Vol] 11.3 mmol/L Normal [facility] Comment on above: Performed By: #### V ITAD, FETIBC, FERR #### [facility] [address] [place] [address] Dr. Andrey Hargrove Calcium [Mass/Vol] 8.9 mg/dL Normal 8.5-10.1 [facility] Comment on above: Performed By: #### V ITAD, FETIBC, FERR #### [facility] [address] [place] [address] Dr. Andrey Hargrove Chloride [Moles/Vol] 100 mmol/L Normal 98-107 [facility] Comment on above: Performed By: #### V ITAD, FETIBC, FERR #### [facility] [address] [place] [address] [address] Andrey Hargrove CO2 [Moles/Vol] 30.9 mmol/L Normal 21.0-32.0 [facility] Comment on above: Performed By: #### V ITAD, FETIBC, FERR #### [facility] [address] [place] [address] [address] Andrey Hargrove Creatinine [Mass/Vol] 2.01 mg/dL Critically high 0.55-1.02 [facility] Comment on above: Performed By: #### V ITAD, FETIBC, FERR #### [facility] [address] [place] [address] Dr. Andrey Hargrove EGFR-AF QATARI 30 mL/min/1.73m2 Critically low >=60 [facility] Comment on above: Performed By: #### V ITAD, FETIBC, FERR #### [facility] [address] [place] [address] [address] Andrey Hargrove EGFR-NON AF QATARI 24 mL/min/1.73m2 Critically low >=60 [facility] Comment on above: Performed By: #### V ITAD, FETIBC, FERR #### [facility] [address] [place] [address] [address] Andrey Hargrove Glucose [Mass/Vol] 81 mg/dL Normal 74-106 [facility] Comment on above: Performed By: #### V ITAD, FETIBC, FERR #### [facility] [address] [place] [address] [address] Andrey Hargrove Potassium [Moles/Vol] 3.2 mmol/L Critically low 3.5-5.1 [facility] Comment on above: Performed By: #### V ITAD, FETIBC, FERR #### [facility] [address] [place] [address] [address] Andrey Hargrove Sodium [Moles/Vol] 139 mmol/L Normal 136-145 [facility] Comment on above: Performed By: #### V ITAD, FETIBC, FERR #### [facility] [address] [place] [address] [address] Andrey Hargrove Urea nitrogen [Mass/Vol] 51.0 mg/dL Critically high 7.0-18.0 [facility] Comment on above: Performed By: #### V ITAD, FETIBC, FERR #### [facility] [address] [place] [address] [address] Andrey Hargrove Urea nitrogen/Creatinine [Mass ratio] 25.4 mg/mg Normal [facility] Comment on above: Performed By: #### V ITAD, FETIBC, FERR #### [facility] [address] [place] [address] [address] Andrey Hargrove COVID-19 Antigenon 2 COVID-19 Antigen Healthcare Worker?: N Kenny Reference Kenny Reference Negative Kenny Blank COVID19 Pos Results Positive results will only be called to COVID19 Det Results Providers for the following groups of patients: COVID19 Pos Results Pre-Surgical Testing, Emergency Room, and Inpatients. Kenny Blank SARS-CoV+SARS-CoV-2 (COVID-19) Ag [Presence] in Respiratory specimen by Rapid immunoassay Positive for SARS Antigen by JOSE RAMON Kenny Disclaimer The Kenny SARS Antigen JOSE RAMON does not differentiate Kenny Disclaimer between SARS-CoV and SARS-CoV-2. COVID19 Blank Space Kenny Disclaimer This test was developed and its performance Kenny Disclaimer characteristic determined by [employer] and Kenny Disclaimer validated at [facility]. This Kenny Disclaimer test has not been FDA cleared or approved. This Kenny Disclaimer test has been authorized by FDA under an Emergency Use Kenny Disclaimer Authorization (EUA). This test has been validated Kenny Disclaimer in accordance with the FDA's Guidance Document (Policy Kenny Disclaimer for Diagnostics Testing in Laboratories Certified to Kenny Disclaimer Perform High Complexity Testing under CLIA prior to Kenny Disclaimer Emergency Use Authorization for Coronavirus Kenny Disclaimer iseas during the Public Health Emergency) Kenny Disclaimer issued on October 03, 2019. This test is only authorized Kenny Disclaimer for the duration of time the declaration that Kenny Disclaimer circumstances exist justifying the authorization of Kenny Disclaimer the emergency use of in vitro diagnostic tests for Kenny Disclaimer detection of SARS-CoV-2 virus and/or diagnosis of Kenny Disclaimer COVID-19 infection under section 564(b)(1) of the Kenny Disclaimer Act, 21 U.S.C. 360bbb-3(b)(1), unless the Kenny Disclaimer authorization is terminated or revoked sooner. PERFORMED BY: [place] [id number] PATHOLOGIST ANATOMY TEACHER JAMAL ALLEN M.D. Normal [facility] Comment on above: Performed By: #### S OFIAPOS, COVID-19 KENNY #### [address] Kenny Ag Positiveon 07-31-19 Kenny Ag Positive Positive Critically abnormal Negative [facility] Comment on above: Result Comment: This is a duplicate Kenny SARS Antigen (JOSE RAMON) result to be used for statistical tracking purpose only. PERFORMED BY: [place] [id number] PATHOLOGIST ANATOMY TEACHER JAMAL ALLEN M.D. Performed By: #### S OFIAPOS, COVID-19 KENNY #### [address] Coding Summary.on 12-22-2020 Coding Summary. CD:[id number] G h0bWw+PGhlYWQ+IX7CJBN jK01olPEbwA2MO0yHUG2T TAZTAAOCNM5PKM5wjSJ3G OybU3OmzlQh YpcwaNMxYJ25OIg2PLT6n HqvIRrgjO2qwZRbF3g2Mg CuPO23dO79MMocAVEyJgY 3LjZpbjsgbWFy C8jxDnHlcYQuXii+PHRhY mxlIHdpZHRoPScxMDAlJy SsuIeiZE0fBk7sSGUjVEV vbGxhcHNlOiBj d4fcPNCbDJtfED5smNgpG 7CitSD5HTMpm8c5Mz20xS I+OEFbTRX0nUrqFPucl23 2WsFzo9uwTQG4 iWAfREuiVMO5C12oq0V2K QIaNZNoAUK0nRH1aO4pnS jkhogbH3PanCWuGgP2HGZ 2aHAtvG6bnObz kvanoG3dVtx+Q88HMW2LS BHVZK9CGel4J5XcLyvcqJ I+RX30FXFvSO74aCSvpVS ub3ryiNu7YkRs APQrNPA8zPtcTCfgr8BfD UZoH81lvEMto0U5AXIogP mijXJnOeNuwOY1hX2yYUc jufyav4douevn Hinju5zeog70hV35P36gX FdoGQRaHJX1TRXaKKVnfC eeff6czM8iLj6+JGbqw7n ae1laaSt0DhUb BIYneoLarYxzJXB5n5MpZ m93A7PavQeud6CmWqc0lw 29qIVnr8U8hNY8AWimKXU amN7zESmtMeD0 VTMdLiAdhL74nAQqTUidG g4atGnkzSzfSZ7eZVRezs iuWIGrlV9uVJCokAJdmFu jYT3kVYKigmvr b305VaBuJKA3ZJRkuNKwO 5PyzD6dQtOqGFEdPAScX3 HeaLXkQYilV471RZbsDhI 3XZAeylAkV2Rq MQXveDwhBoM0u3I1Gx9Ez 1HdyvzzCDQ2GQyiRDR9Kb EoRuWbBcX8M5SlUeg8YHR gpYetWS5iO4Hb WGJvpiunphtapWU6JOFsK HUivH33xWHtJBtnBd7yy2 I7e169JYPyPMDpmO60Ad5 udDogMTBwdCBU cA0mjgnsq6jzcpadSaYtV OTyPJa5QPg4VKOfeQpnYz YnOLI3BuU0BGV5dYBvvF0 vqKdzklmuwQ4v Oyc+N95ocN3zPSZ6LGO5c vxuMXYstmCfJQ30UK19U4 RyPjwvdGFibGU+PGRpdiB qaRwgFJ7kGyIo s9aon7CrSFtyA1CpGYLmK IwuIin3EVDvVTG3kWO3sS 8wCLNgJKsuf1R5sYV9I3K eqqMkar2yd6wx TRGmHRorQ37ssJRvi9H1I HPwbSA4ZVUlvKxjAxCneN 93Oyc+AGZphRruk5VwDzh io0kcg6gamYk3 SpSmNCFtfnGikCehLGL3g 3XxAm36E54fGNdxUTItXP TyHGHuHTVgoJwomi1gsP6 wIi8+PGNvbCB3 cLF0oL0lOGJxXgG3EYsiZ 023DiNujUEqTfypa6ioh2 hkcZx8SdUyBMMmhkRhoXg dGXP5v9IfYl55 O39zQHptOVHsEPDiBCLnS HCiaUzstv2rlJ5hCy7+PC 0ih6uvca45mF80vWY+PHR dYJN3mStwPMti LAEgpF5fMOfxBjU5VEUjU bZazN58qVEmLTkzKh8dwE lhyVzpQH9dCHTttdigz93 2QsPya5mcFMSp oJUsCVadPYM0O21hy9U0I EUdBQFpPNN5nBU6rE2eyS lnbjogbGVmdDsgdmVydGl nEVvkUTjyG316 IHRvcDsnPlBhdGllbnQgT gWqORw5Y4WyRxa7ZJQdsA euNA6zcPSrKQthVk4mbHs myCxgWM3eGKEi fxtlu534EgYss8ofIJTvc VYyBBpxIPF5E18ko4C5CL WxPPWjBCV5lMI5yK0alRd nbjogbGVmdDsg xiKreRpvTRfpIMymC962N HRvcDsnPkJpcnRoIERhdG P9YG42EJ56xSLod3Q8jNK 1A8OfTFHgpsjz ygdlnMU1KYKtRAXryY72I q3fjEhrLd7yFYUcNFR7YF CvoOYrW9TdxK3ePhRzXKR xTTWpM0OudJNp AOjsR006DDelImA4TJAlr fMsC3BoAOYnrHkwFaX7k6 O5Qk8MZ5J6JO35NI29tTE xq7W1xHB1R3Eb DXNctxinhrzgjFE1XBDiD YCfaF76Eu1cxRcqHn0gDA PgVVR2LBWpsVDtP5LfiC5 yOiAjMDAwMDAw F9CtvLMnVAgcM805DOxwU kJ3FXQqpwZgB9OmNTUuwS svUjL3w0N2Zz9BSBs6MP6 6DN63aZByg3D0 sPS0Y7FnMWNtvcjdbkwns AR7VTDiXOPboB58Ux3ovJ vdSp5lAAPjOWP7MAXptYF hO5WccW8zUaYl YMMjOKNqQ1XukYJmASyrI 233QYziPxF4TAWphlMcT9 HvSJIsiVpgEjL2f1S6Vc5 SUWRmZA20XSQ4 zCM5GJ95IP46O1AjZwcrb GFibGU+PHRhYmxlIHdpZH RoPScxMDAlJyBzdHlsZT0 vHa1rRPQaLXPp dRqwyWZlWbVca0nsGZGvC DcyFC2zgPhhN8AqzVL1KN Klk6j1Sb82F21iH1CrvEX +UZWnkJL1jNK2 yE2wNmCwPwM9NWljI988G uMvkLYqSteeb0spn2oeuK c2NnI3NZTqhtQgoDioNSC 6q9ZwRb17M73g IHdpZHRoPSIxNSUiIHZhb Ddvax7quR0pWy4+PGNvbC B8kGG5rZ7rIeYyUlO2WIr aS884SnTomUXm Xnusg8zyh0afwUu2EhMnX QBfkdWwuWiqGNA9x4OrMz 70I7DsmZooy6FxLzb6ea1 9lETms5L8uVC4 E7AcGBQgwkspjGJuiGvpS K3zLNInyuyiIJBzuM5bBV IaH2u1PlWjAkR6FZfmA8N bjzH3HKHwgGFb MNypBHW4R70lp1Q9PEWqH NCqCNC8hNW5kZ3rfNumhb ogbGVmdDsgdmVydGljYWw tPLciK373FETn vLssXQWmtP1yBWRlaSCjr AvbKA9qEJUswefmGj3GF9 LVHnbpB6eINx3TISF1P6K eJkc6XCConVzs DM8neIQrZMhnXm2bzPgkf KloBK2qIOGzdmsaXTXlxO 8lPBKydZZerYkmYH5rLQL wwbudu709HwSc UUF6DUZreNYtZ2QzcB7qZ fQsXILsQZMqV8LiaCTiKW hrF897PHhnDcQ7YGQmyqB tZ0JzCVKebTsw GcR5v5K7Nv3mZR5hWe2xV AXqCC20UB22gYTsk8B7tA X5D9TgORNqftdvmjeraQX 9AKOfHWUobJ84 lOSeUVisIh4pp4S3k661S RFoLHImzO62An3cfWneNL EheAGXzZ3iotmal4abgkw gIzAwMDAwMDt0 GBp9SBFtaCjsUsHhCCM2U mF0JAY4nDPymK4gnFkefq ldxJ6jVcl+NjkgWWVhcnM 6B0ZxOqq8SPAh kHfvXC9fgITiCQdtOw2xh ZjirZycLX3xAETayargJE UumB0dNCQmlOMtjRksAO5 dECAgsrtla861 KeHaTOD2MLJlaQZnV3Wsk P7iYhBgNRNmWGWaK9OvrV CkIUelU604WGhpUlZ4ZET vunLlA2PkTQQc fIpnVmJ1q8K6Ff2GID6xi GU6S8QrBss3GXMzzPffEK 3gtLQtCWgbTj5oyHemhEc xVD0yHZVjfbju SRDlyR3eFIXvvVNgoTdcO H1pIYRyadelf462ZoXpIA E6EUTewMPgQ5JezU0rUbC hMIJiSFKdM1Yq tXKeXWheO945MIfgQwW6K ZMbksHuN0BwNRKzaImrMc Q3c8L9Aj5WDCUrKZEokMP jSiN7B2RoZmlr dHI+IM61KOQuLV15sEKaf RLst5clqAr6MnQlRVAhMN K0gBjdQTmvi9BnLVKrL06 qyQQlj7W8GFEj eAmdzEAtSgVvcCF8lT5sB Dqiefrif2kywpdzTntwv9 tnir40aX30E04lKBzoNVC oPSIzMCUiIHZh zBjlsg9qoD3sYl6+PGNvb YX9dMS4oS5nWkMgIqP2FQ xaZ761VwCmzTLsIxlga0s af4rrfCp6KcFc LLSfvdHgtFthQXI6u7GrE d98O20hZYogUAEuMDVkDB VpFQYowBlgsd5ayL3nZg8 +LB6my2sjgp31 hF28aDH+YDUdESK5iGzyR BxsXLUfqD1gMGhpZeV6IT WoXtUbdG00vVDnOWsvWw5 xxPutlUggYC3t LINpvegir929MnEfo0lxY VPmjGKvTRdcZVL9Q44vv4 N3PVDjOWSpZNG3dHI0wI2 hbGlnbjogbGVm dDsgdmVydGljYWwtYWxpZ 463XOEbpBtsLjUrlTZnP1 ojrnDBET5zMhqheCV+PHR xVUB6mZcaOHgc UEUxpI7fCYNxV1o8UjVaA lG7MUiqK5RrwjV0AEQpsX OsOSYrkMNDuY3mvuomv0d vcjogIzAwMDAw YIf5AMy4PNDrpFekTdTlU UZ0ZaN5NSM8lWZnrP6vwY kzdjjlmY2nTta+RklOOjw vdGQ+PHRkIHN0 yBsvGJdvURNswU5fRHBxM 3u4TkWfQyF1WIjuM9Bvxr R0YMWdrZSwZMXdpNATpB9 pwvpur9jnqrdh ObGeIYZoQBe2JOs3DJEhs TsjZvTzJFN7HxZ0GNC9aW MupB1ufGdrteppgI4kFtz +TVJOOjwvdGQ+ WZOsIWU7kFloKKhpIFYaf V6dEEQbS2s5QkVdMtC0CB ztZ7HhsdU5CFUjbWCkRGF cpNAVlH3hjjsp h1doinvyZbMzIDQsCRp1P Nj6UZIixZgsRhLrWGA4By O6QOE8zRRbnG2jqZhnucj gnC8qHfa+UGF5 ONL9SS35AY78J4TaMszxj GFibGU+PHRhYmxlIHdpZH RoPScxMDAlJyBzdHlsZT0 bTx0gIJAmGJFx bGxh (more content not included)... Normal [facility] Consent for Procedure/Surger yon 12-16-2020 Consent for Procedure/Surgery [id number] #1.00CD:127 Normal [facility] Formson 12-16-2020 Forms [id number]#1. 00CD:127 [facility] Lab Reportson 12-16-2020 Lab Reports [id number]#1. 00CD:127 [facility] Physician Referralon 021 Physician Referral [id number]#1 .00CD:127 [facility] RAD - MISCon 12-16-2020 RAD - MISC [id number] #1.00CD:127 [facility] RAD - Ultrasound Reporton RAD - Ultrasound Report [id number] .00CD:127 Normal [facility] Ambulatory Clinical Summaryo n 12-15-2020 Ambulatory Clinical Summary {[id number]}CD:[id number] Normal [facility] Patient Educationon 12-16-19 Patient Education Urology Hematuria, Adult Hematuria is blood in the urine. Blood may be visible in the urine, or it may be identified with a test. This condition can be caused by infections of the bladder, urethra, kidney, or prostate. Other possible causes include: ? Kidney stones. ? Cancer of the urinary tract. ? Too much calcium in the urine. ? Conditions that are passed from parent to child (inherited conditions). ? Exercise that requires a lot of energy. Infections can usually be treated with medicine, and a kidney stone usually will pass through your urine. If neither of these is the cause of your hematuria, more tests may be needed to identify the cause of your symptoms. It is very important to tell your health care provider about any blood in your urine, even if it is painless or the blood stops without treatment. Blood in the urine, when it happens and then stops and then happens again, can be a symptom of a very serious condition, including cancer. There is no pain in the initial stages of many urinary cancers. Follow these instructions at home: Medicines ? Take gfqa-vie-ebphpcg and prescription medicines only as told by your health care provider. ? If you were prescribed an antibiotic medicine, take it as told by your health care provider. Do not stop taking the antibiotic even if you start to feel better. Eating and drinking ? Drink enough fluid to keep your urine clear or pale yellow. It is recommended that you drink 3?4 quarts (2.8?3.8 L) a day. If you have been diagnosed with an infection, it is recommended that you drink cranberry juice in addition to large amounts of water. ? Avoid caffeine, tea, and carbonated beverages. These tend to irritate the bladder. ? Avoid alcohol because it may irritate the prostate (men). General instructions ? If you have been diagnosed with a kidney stone, follow your health care provider's instructions about straining your urine to catch the stone. ? Empty your bladder often. Avoid holding urine for long periods of time. ? If you are female: ? After a bowel movement, wipe from front to back and use each piece of toilet paper only once. ? Empty your bladder before and after sex. ? Pay attention to any changes in your symptoms. Tell your health care provider about any changes or any new symptoms. ? It is your responsibility to get your test results. Ask your health care provider, or the department performing the test, when your results will be ready. ? Keep all follow-up visits as told by your health care provider. This is important. Contact a health care provider if: ? You develop back pain. ? You have a fever. ? You have nausea or vomiting. ? Your symptoms do not improve after 3 days. ? Your symptoms get worse. Get help right away if: ? You develop severe vomiting and are unable take medicine without vomiting. ? You develop severe pain in your back or abdomen even though you are taking medicine. ? You pass a large amount of blood in your urine. ? You pass blood clots in your urine. ? You feel very weak or like you might faint. ? You faint. Summary ? Hematuria is blood in the urine. It has many possible causes. ? It is very important that you tell your health care provider about any blood in your urine, even if it is painless or the blood stops without treatment. ? Take zjua-pae-pfndjuk and prescription medicines only as told by your health care provider. ? Drink enough fluid to keep your urine clear or pale yellow. This information is not intended to replace advice given to you by your health care provider. Make sure you discuss any questions you have with your health care provider. Document Released: 06/19/2006 Document Revised: 11/13/2019 Document Reviewed: 07/22/2017 [email or web address] Patient Education ? 2019 [employer]. [facility] Urology Office/Clinic Noteon 12-15-2020 Urology Office/Clinic Note Chief Complaint Cysto/UD HPI Staff Cysto/UD Scope#5 ABX TAKEN History of Present Illness I have reviewed and verified the staff HPI to be accurate for this encounter. Review of Systems PHQ Score Initial Depression Screen Score: 0 ROS - Provider Constitutional: denies weight loss, denies hot flashes. Eyes: denies eye problems. Gastrointestinal: denies nausea, denies vomiting. Cardiovascular: denies chest pain or angina. Integumentary: no dryness Musculoskeletal: denies musculoskeletal symptoms. ENMT: denies otolaryngeal symptoms. Respiratory: no shortness of breath. Heme/Lymph: denies easy bleeding tendency, denies easy bruising tendency. Psychiatric: no confusion, no anxiety. Genitourinary: denies vaginal discharge, denies incontinence, denies dysuria, denies hematuria, denies urinary frequency, denies amenorrhea, denies menorrhagia, denies abnormal bleeding, denies pelvic pain, denies genital sores, and denies decreased libido. Physical Exam Vitals & Measurements HR: 68(Peripheral) RR: 16 BP: 163/71 HT: 143.0 cm HT: 143 cm WT: 63.0 kg WT: 63 kg BMI: 30.81 General Appearance: alert , no acute distress, well nourished, well developed female. Genitourinary: bladder nonpalpable, no flank pain. Procedure Operative Information Anesthesia Type: Local Procedure: Local Cystoscopy with Urethral Dilation Complications: None Surgical risks, benefits, details of the procedure have been explained to the patient. Full informed consent has been obtained. Intraoperative Information Prepped: Patient is brought back to the endoscopy suite. Patient is placed in modified dorso/lithotomy position. Patient prepped in the usual fashion with Betadine solution. 2% Xylocaine Jelly is placed per Urethra. After waiting several minutes, the Cystoscope is introduced. The Urethra is: Tight The Bladder: Normal, no bladder tumors, no stones seen, Trabeculated: Moderate (2), mild AV, no prolapse, no ALVARO. The Ureteral orifices: Show efflux of clear urine The Urethra was dilated to: _18- 30 Irish with sounds. Specimens Removed: None Removal: Cystoscope is removed. The patient tolerated it well. Postoperative Information Patient is discharged home with antibiotic coverage. Follow up arranged. Assessment/Plan 1. Microscopic hematuria (R31.29: Other microscopic hematuria) Blood seen On UA. unknown cause of hematuria. Negative Cystoscopy/UD done today 12/15/20. 2. Kidney stone (N20.0: Calculus of kidney) No stones seen on KUB 12/11/20. Renal US shows 8mm stone in renal cortex not the urinary tract. 3. Recurrent UTI (N39.0: Urinary tract infection, site not specified) Pt had recent UTI. On Keflex 250mg bid therapy. Follow-up With When Contact Information CHER VIGIL, Marcos Abreu, URL [facility] [address] [place] [address]- [phone] Additional Instructions: f/u PRN Patient Education Hematuria, Adult I, Donna Hartley, personally scribed for Dr. Kwno on 12/15/2020 15:55:59. . Documentation recorded by the scribejessee, accurately reflects the services(s) I performed and decisions made by me. Authenticated by Dr. Kwon on 12/15/2020 15:58:15. Problem List/Past Medical History Ongoing Benign essential HTN Diabetes DM (diabetes mellitus), type 2 Glaucoma Goiter Hypertension Osteopenia Osteoporosis Prolapsed cervical intervertebral disc Stage 3 chronic kidney disease Historical No qualifying data Procedure/Surgical History Cystourethroscopy with dilation of urethral stricture (12/15/2020), Arthroscopy of knee (05/01/2020), Cataract extraction and insertion of intraocular lens (11/19/2019), Cataract extraction and insertion of intraocular lens (11/06/2019), Anesthesia for laparoscopic procedure on lower abdomen, Appendectomy, Biopsy of thyroid, section, Cheilectomy of tarsal, Cholecystectomy, Heart lung bypass. Medications allopurinol 100 mg Tab amLODIPine 10 mg Tab, 10 mg= 1 tab(s), Oral, Daily aspirin 81 mg oral tablet, 81 mg= 1 tab(s), Oral, Daily Basaglar KwikPen, 15 unit(s), SubCutaneous, TID Basaglar KwikPen 100 units/mL subcutaneous solution bumetanide 2 mg Tab, 2 mg= 1 tab(s), Oral, BID clopidogrel 75 mg Tab, 75 mg= 1 tab(s), Daily doxazosin 2 mg oral tablet, 2 mg= 1 tab(s), Daily Iron Chews, Every other day Keflex 250 mg Cap, 250 mg= 1 cap(s), Oral, BID Lipitor 20 mg Tab, 20 mg= 1 tab(s), Oral, Bedtime, 1 refills metolazone 2.5 mg Tab, 2.5 mg= 1 tab(s), Monday metoprolol tartrate 75 mg oral tablet, 75 mg= 1 tab(s), BID potassium chloride 20 mEq ER Tab, 20 mEq= 1 tab(s), Oral, TID Restasis 0.05% ophthalmic emulsion, 1 drop(s), Eye-Both, BID Vitamin D2 50,000 intl units (1.25 mg) oral capsule, 05727 International_Unit= 1 cap(s), Monday Zioptan 0.0015% ophthalmic solution Allergies erythromycin (Anaphylactic reaction) penicillin (Hives) Social History Alco (more content not included)... Normal [facility] Comment on above: Result Comment: Elec tronically Signed By: CHER VIGIL, Marcos Abreu\.br\Date and Time Signed: 12/15/20 15:58 EDT\.br\Electronically Co-Signed By: Donna Hartley\.br\Date and Time Co-Signed: 12/15/20 15:56 EDT Reminderson 12-14-2020 Reminders - From: Augusta Singh To: [facility] - Clinical; Sent: 12/11/2020 13:29:41 EDT Show up: 12/14/2020 13:29:00 EDT Subject: Urine culture Reminder/Recall Urine Culture PRW reviewed positive culture. [facility] C Urineon 12-13-2020 Bacteria identified Cx Nom (U) Microbiology PROCEDURE: Urine Culture [R1] SOURCE: U Random BODY SITE: COLLECTED DATE/TIME: 12/11/2020 13:25 EDT RECEIVED DATE/TIME: 12/11/2020 18:10 EDT START DATE/TIME: 12/11/2020 18:10 EDT FREE TEXT SOURCE: CHER VIGIL, Marcos KWON MD, Marcos Abreu FINAL REPORTS Final Report [] Verified Date/Time: 12/13/2020 11:53 EDT >100,000 cfu/ml Escherichia coli SUSCEPTIBILITY RESULTS LEGEND: S=Susceptible, N/R=Not Reported, Blank=Data not available, or drug not advisable or tested, I=Intermediate, ESBL=Extended spectrum beta-lactamase, R=Resistant, TFG=Thymidine-depende nt strain, KEIRA=Beta-lactamase positive, DAE=mcg/m;(mg/L), S*=Predicted susceptible interp, R*=Predicted resistant interp EC Antibiotic DAE Dilutn DAE Interp Amikacin <=16 S Ampicillin <=8 S Ampicillin/ <=8/4 S Sulbactam Aztreonam <=4 S Cefazolin <=2 S Cefepime <=2 S Cefoxitin <=8 S Ceftazidime <=1 S Ceftazidime/ <=8 S Avibactam Ceftriaxone <=1 S Ciprofloxacin <=1 S Ertapenem <=0.5 S Gentamicin <=4 S Levofloxacin <=2 S Meropenem <=1 S Nitrofurantoin <=32 S Piperacillin/ <=16 S Tazobactam Tetracycline <=4 S Tigecycline <=2 S Tobramycin <=4 S Trimethoprim/ <=2/38 S Sulfa Performing Locations R1: This test was performed at: [facility], [address] [place] [address], [id number] , , [facility] Comment on above: Performed By: #### 2 [id number] ####[place] [address] Ambulatory Clinical Summaryo n 12-11-2020 Ambulatory Clinical Summary {[id number] -b8-cc}CD:[id number] Normal [facility] Ambulatory Clinical Summary {[id number] -[id number]}CD:[id number] Normal [facility] Ambulatory Clinical Summary {[id number] -[id number]}CD:[id number] Normal [facility] Patient Educationon 06-11-20 21 Patient Education Urology Hematuria, Adult Hematuria is blood in the urine. Blood may be visible in the urine, or it may be identified with a test. This condition can be caused by infections of the bladder, urethra, kidney, or prostate. Other possible causes include: ? Kidney stones. ? Cancer of the urinary tract. ? Too much calcium in the urine. ? Conditions that are passed from parent to child (inherited conditions). ? Exercise that requires a lot of energy. Infections can usually be treated with medicine, and a kidney stone usually will pass through your urine. If neither of these is the cause of your hematuria, more tests may be needed to identify the cause of your symptoms. It is very important to tell your health care provider about any blood in your urine, even if it is painless or the blood stops without treatment. Blood in the urine, when it happens and then stops and then happens again, can be a symptom of a very serious condition, including cancer. There is no pain in the initial stages of many urinary cancers. Follow these instructions at home: Medicines ? Take xncq-qgi-fwlnreo and prescription medicines only as told by your health care provider. ? If you were prescribed an antibiotic medicine, take it as told by your health care provider. Do not stop taking the antibiotic even if you start to feel better. Eating and drinking ? Drink enough fluid to keep your urine clear or pale yellow. It is recommended that you drink 3?4 quarts (2.8?3.8 L) a day. If you have been diagnosed with an infection, it is recommended that you drink cranberry juice in addition to large amounts of water. ? Avoid caffeine, tea, and carbonated beverages. These tend to irritate the bladder. ? Avoid alcohol because it may irritate the prostate (men). General instructions ? If you have been diagnosed with a kidney stone, follow your health care provider's instructions about straining your urine to catch the stone. ? Empty your bladder often. Avoid holding urine for long periods of time. ? If you are female: ? After a bowel movement, wipe from front to back and use each piece of toilet paper only once. ? Empty your bladder before and after sex. ? Pay attention to any changes in your symptoms. Tell your health care provider about any changes or any new symptoms. ? It is your responsibility to get your test results. Ask your health care provider, or the department performing the test, when your results will be ready. ? Keep all follow-up visits as told by your health care provider. This is important. Contact a health care provider if: ? You develop back pain. ? You have a fever. ? You have nausea or vomiting. ? Your symptoms do not improve after 3 days. ? Your symptoms get worse. Get help right away if: ? You develop severe vomiting and are unable take medicine without vomiting. ? You develop severe pain in your back or abdomen even though you are taking medicine. ? You pass a large amount of blood in your urine. ? You pass blood clots in your urine. ? You feel very weak or like you might faint. ? You faint. Summary ? Hematuria is blood in the urine. It has many possible causes. ? It is very important that you tell your health care provider about any blood in your urine, even if it is painless or the blood stops without treatment. ? Take uqwy-skt-gtxivod and prescription medicines only as told by your health care provider. ? Drink enough fluid to keep your urine clear or pale yellow. This information is not intended to replace advice given to you by your health care provider. Make sure you discuss any questions you have with your health care provider. Document Released: 06/19/2006 Document Revised: 11/13/2019 Document Reviewed: 07/22/2017 [employer] Patient Education ? 2019 [employer] 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 Jenkins due to Hematuria. Pt states that since the End of October she has been feeling a slight squeeze, no pain associated with this. Pt had a Renal US done at [facility]. Pt states that she has a Kidney stone found on the renal US. Denies any urinary tract infections. Pt states that she went urgent care and states that she had e-coli in urine and was rx Bactrim and Dr. Keller told her not to take this if she is not having any sx. Dysuria: no pain or burning Incomplete bladder emptying: emptying well Hematuria: denies any blood in urine Frequency: normal voiding every 2 hours Urgency: mild Nocturia: 1x Stream: average stream, no hesitation, no intermittent stream, no stranguria Post void dripping: none Wearing pads/ Depends: _ Urge incontinence: none Stress incontinence: none Incontinence without Sensory Awareness: none Abdominal pain: none History of Present Illness Reviewed UA, KUB, referral, and new pt. forms. There have been no associated fever, chills, or flank pain. Pt. denies any pain/burning with urination at this time. Review of Systems PHQ Score Initial Depression Screen Score: 0 ROS - Provider Constitutional: denies weight loss, denies hot flashes. Eyes: denies eye problems. Gastrointestinal: denies nausea, denies vomiting. Cardiovascular: denies chest pain or angina. Integumentary: no dryness Musculoskeletal: denies musculoskeletal symptoms. ENMT: denies otolaryngeal symptoms. Respiratory: no shortness of breath. Heme/Lymph: denies easy bleeding tendency, denies easy bruising tendency. Psychiatric: no confusion, no anxiety. Genitourinary: denies vaginal discharge, denies incontinence, denies dysuria, denies hematuria, denies urinary frequency, denies amenorrhea, denies menorrhagia, denies abnormal bleeding, denies pelvic pain, denies genital sores, and denies decreased libido. Physical Exam General Appearance: alert , no acute distress, well nourished, well developed female. Head: normocephalic . Eyes: normal orbit and globe. ENMT: normal examination of external ears. Chest: Lungs CTA, respirations non labored . Cardiovascular: regular rate and rhythm. Abdomen: soft, non distended, no tenderness, no mass or organomegaly, no hernia. Genitourinary: bladder nonpalpable, no flank tenderness. Lymph Nodes: unremarkable palpation of the cervical area. Skin: warm, dry, no bruising. Psychiatric: cooperative, affect appropriate for age, normal judgement, euthymic mood. Assessment/Plan 1. Microscopic hematuria (R31.29: Other microscopic hematuria) UA today - moderate. Will schedule Cystoscopy/ud. The risks and benefits for this procedure have been discussed. The risks include bleeding, infection, and irritation of the bladder and urinary channel, among others. The patient, after being informed of procedural details and after questions have been answered, wishes to proceed. Full informed consent has been obtained. Will order Local anesthesia. 2. UTI (urinary tract infection) (N39.0: Urinary tract infection, site not specified) UA appears to be infected today w/ pos. nitrate. Pt. denies UTI sxs. Will send UA for culture. Will start pt. on Keflex 250mg bid, #14. Discussed the medication side effects, and the patient will monitor closely for these, as well as for symptom improvement. If severe side effects occur, the medication should be stopped and the office notified. Script sent to [facility]. 3. Kidney stones (N20.0: Calculus of kidney) Renal u/s done on 09/17/20, 8mm Lt. renal stone. Ordering KUB. will do eswl if stone is seen by kub. I have reviewed the previous health record information and history for this pt. from Dr. Kwon. Follow-up With When Contact Information CHER VIGIL, Marcos Abreu, URL [address] [place] [address]- [phone] Additional Instructions: Patient Education Hematuria, Adult I, Regla Pyle , personally scribed for Dr. Kwon on 12/11/2020 11:12:06. . Documentation recorded by the scribe, Regla Pyle, accurately reflects the services(s) I performed and decisions made by me. Authenticated by Dr. Kwon on 12/11/2020 11:16:57. Problem List/Past Medical History Ongoing Benign essential HTN Diabetes DM (diabetes mellitus), type 2 Glaucoma Goiter Hypertension Osteopenia Osteoporosis Prolapsed cervical intervertebral disc Stage 3 chronic kidney disease Historical No qualifying data Procedure/Surgical History Arthroscopy of knee (05/01/2020), Cataract extraction and insertion of intraocular lens (11/19/2019), Cataract extraction and insertion of intraocular lens (11/06/2019), Anesthesia for laparoscopic procedure on lower abdomen, Appendectomy, Biopsy of thyroid, section, Cheilectomy of tarsal, Cholecystectomy, Heart lung bypass. Medications allopurinol 100 mg Tab amLOD (more content not included)... Normal [facility] Comment on above: Result Comment: Elec tronically Signed By: Marcos KWON MD\.br\Date and Time Signed: 12/11/20 11:17 EDT\.br\Electronically Co-Signed By: Regla Pyle MA\.br\Date and Time Co-Signed: 12/11/20 11:12 EDT Lab Reportson 11-16-2020 Lab Reports [id number] .00CD:127 Normal [facility] Lab Reports [id number] .00CD:127 Normal [facility] RAD - Ultrasound Reporton RAD - Ultrasound Report [id number] .00CD:127 Normal [facility] IntraOperative Documentson 07-12-2019 IntraOperative Documents [id number]# 1.00CD:127 [facility] Message from Medicareon Message from Medicare [id number]#1.0 0CD:127 [facility] Coding Summary.on 05-06-2020 Coding Summary. CODING DATE: 05/06/2020 FINAL [facility] STATUS: Home (Routine DC) PAYOR: Medicare APC DESCRIPTION 5113 Level 3 Musculoskeletal Procedures ADMIT DX: REASON FOR VISIT DX: S83.232A Complex tear of medial meniscus, current injury, left knee, initial encounter FINAL DX: PRINCIPAL: R07.89 Other chest pain SECONDARY: S83.232A Complex tear of medial meniscus, current injury, left knee, initial encounter X58.XXXA Exposure to other specified factors, initial encounter I10 Essential (primary) hypertension E11.9 Type 2 diabetes mellitus without complications M17.12 Unilateral primary osteoarthritis, left knee R09.89 Other specified symptoms and signs involving the circulatory and respiratory systems PYMT PROC APC STAT DESCRIPTION DOCTOR NAME DATE [id number] 5083 J1 Arthroscopy, [place] han DO, Michael T 05/01/2020 surgical; with meniscectomy (medial OR lateral, including any meniscal shaving) including debridement/shaving of articular cartilage (chondroplasty), same or separate compartment(s), when performed LT Left side (used to identify procedures performed on the left side of the body) 28189 Anesthesia for open or [place] Gurmeet Gomes DO 05/01/2020 surgical arthroscopic procedures on knee joint; not otherwise specified NOTE: The code number assigned matches the documented diagnosis and / or procedure in the patient's chart. However, the narrative phrase printed from the coding software may appear abbreviated, or result in slightly different terminology. Revised Coded By: Carmita Bowers Revised Date Saved: 05/06/2020 11:55 am Normal [facility] Insurance Correspondence Off iceon 05-05-2020 Insurance Correspondence Office [id number]# 1.00CD:127 Normal [facility] Main OR Intraoperative Recor don 05-05-2020 Main OR Intraoperative Record IntraOp Document Type FT Summary Primary Physician: David Talamantes DO Finalized Date/Time: 05/05/20 14:09:46 Pt. Name: CLAUDIA ESTRELLA Katerin Olivas./Sex: 1950 Female Med Rec #: [id number] Physician: David Talamantes DO Financial #: [id number] Pt. Type: O Room/Bed: [place] [address] Admit/Disch: 05/01/20 11:43:14 - 05/04/20 12:35:00 Institution: Case Times FT Entry 1 Patient Times In Room 05/01/20 14:26:00 Out Room 05/01/20 15:04:00 Procedure Times Start 05/01/20 14:43:00 Stop 05/01/20 15:01:00 Anesthesia Times Start 05/01/20 14:26:00 Stop 05/01/20 15:04:00 Last Modified By: Viky Hernández RN 05/01/20 15:04:34 General Comments: 05/05/2020 Chart open to review and send charges. Jessee Thomas RN Case Attendance FT Entry 1 Entry 2 Entry 3 Case Attendee Gurmeet Aldridge Jr, DO, DO, Michael T Coy RN, Emily A Role Performed Anesthesiologist of Surgeon - Primary Linen Worker - Primary Record Time In 05/01/20 14:26:00 05/01/20 14:39:00 05/01/20 14:26:00 Time Out 05/01/20 15:04:00 05/01/20 15:04:00 05/01/20 15:04:00 Procedure KNEE ARTHROSCOPY(Left) KNEE ARTHROSCOPY(Left) KNEE ARTHROSCOPY(Left) Comments Last Modified By: Edgra RN, Viky Hernández RN, Viky Krueger RN 05/01/20 15:04:35 05/01/20 15:04:35 05/01/20 15:04:35 Entry 4 Entry 5 Entry 6 Case Attendee Maxim WU, Augusta Castro CST, Leatha Flowers RN, CNORCee Role Performed Linen Worker - Primary Scrub - Primary Linen Worker - Relief Time In 05/01/20 14:26:00 05/01/20 14:26:00 05/01/20 14:57:00 Time Out 05/01/20 15:04:00 05/01/20 15:04:00 05/01/20 15:04:00 Procedure KNEE ARTHROSCOPY(Left) KNEE ARTHROSCOPY(Left) KNEE ARTHROSCOPY(Left) Comments orientation Last Modified By: Edgar RN, Viky Hernández RN, Viky Hernández RN, Viky Mcdonough 05/01/20 15:04:35 05/01/20 15:04:35 05/01/20 15:04:35 Perioperative Protocols FT Pre-Care Text: Implements protective measures prior to operative or invasive procedure, confirms identity before the operative or invasive procedure, verifies operative procedure, surgical site, and laterality Entry 1 Procedure(s) KNEE ARTHROSCOPY(Left) Patient Identity Birthday, ID Band Verified (select at Check, Patient least 2): Participation Consents / H and P Anesthesia Consent, Operative Site Present Verified HandP, Surgery/Procedure Marking Verified Consent Surgical Site Yes Laterality Verified Yes Verified Procedure Verified Yes Correct Patient Yes Position Verified Availability Equipment, Medication Prep Dry Yes Verified (If Applicable) PreOp Antibiotic No Time Out Gurmeet Aldridge Jr, DO, Given Participants David Talamantes DO, Coy RN, Maxim Reid RN, Matthew Crain CST, Leatha Samuels Time Out Complete 05/01/20 14:39:00 Outcomes Met? Yes Last Modified By: Viky Hernández RN 05/01/20 14:46:01 Post-Care Text: The patient is free from signs and symptoms of injury caused by extraneous objects Allergy Information FT Pre-Care Text: Verifies allergies Entry 1 Allergies Reviewed? Yes Allergies Reviewed Self/Patient With Outcomes Met? Yes Last Modified By: Viky Hernández RN 05/01/20 14:46:10 Post-Care Text: The patient received appropriate medication(s) safely administered during the perioperative period Surgical Procedures FT Entry 1 Procedure Description Procedure KNEE ARTHROSCOPY Modifiers Left Surgeon Description LRFT KNEE ARTHROSCOPY, partial medial meniscectomy, tricompartment chondroplasty Primary Procedure Yes Primary Surgeon David Talamantes DO Start 05/01/20 14:43:00 Stop 05/01/20 15:01:00 Anesthesia Type General Surgical Service Orthopedics Wound Class 1 - Clean Last Modified By: Viky Hernández RN 05/01/20 15:04:34 General Case Data FT Pre-Care Text: Classifies surgical wound, implements aseptic technique, initiates traffic control Entry 1 Case Information OR OR 4 FT Case Level Level 3 Wound Class 1 - Clean Specialty Orthopedics ASA Class 3 Preop Diagnosis LEFT KNEE BONE BRUISE, Postop Same As Preop Yes MEDIAL MENISCUS TEAR, EFFUSION Postop Diagnosis LEFT KNEE BONE BRUISE, Outcomes Met? Yes MEDIAL MENISCUS TEAR, EFFUSION Last Modified By: Viky Hernández RN 05/01/20 14:51:07 Post-Care Text: The patient is free from signs and symptoms of infection Skin Assessment (Pre Procedure) FT Pre-Care Text: Implements protective measures to prevent skin/ tissue injury due to thermal or mechanical sources Evaluates for signs and symptoms of physical injury to skin and tissue Entry 1 Skin Integrity Intact, [place], Warm, and Skin Abnormality No Dry Outcomes Met? Yes Last Modified By: Viky Hernández RN 05/01/20 14:46:48 Post-Care Text: The patient is free from signs and symptoms of injury caused by extraneous objects Patient Positioning FT Pre-Care Text: Identifies physical alterations that require additional precautions for procedure-specific positioning, verifies presence of prosthetics or corrective (more content not included)... Normal [facility] Progress Note-Physicianon Progress Note-Physician Patient: CLAUDIA ESTRELLA Age: 70 years Sex: Female : 1950 Associated Diagnoses: None Author: Gurmeet Aldridge Jr, DO Preoperative Information Time patient last ate or drank:=== (npo 8 hours) Anesthesia history: Patient history: No prior anesthesia problems. Re-evaluation prior to induction: Completed, Initial evaluation reviewed. Review of Systems Respiratory: No shortness of breath. Cardiovascular: No chest pain. Hematology/Lymphatics : No bruising tendency, No bleeding tendency. Health Status Allergies: Allergic Reactions (All) Severity Not Documented Erythromycin- Anaphylactic reaction. Penicillin- Hives. Canceled/Inactive Reactions (All) Severity Not Documented Azithromycin- Anaphylactic shock. No Known Allergies Current medications: (Selected) Inpatient Medications Ordered HYDROmorphone 1 mg/mL injectable solution: 1 mg = 1 mL, Injection, IV Push, q2hr PRN Pain 8-10 for 5 day(s), Stop date 05/03/20 18:04:00 EST, Routine, Start date 04/28/20 18:05:00 EDT Lactated Ringers IV Radha 1000 mL 1,000 mL: 1,000 mL, IV, 150 mL/hr, Routine, Start date 05/01/20 11:45:00 EDT, 6.7 hour(s), Total volume (mL): 1,000, 68.3 kg, 1.64, m2 [place] 5/325 Tab: 1 tab(s), Tab, Oral, q4hr PRN Pain 4-7 for 5 day(s), Stop date 05/03/20 18:04:00 EST, Routine, Start date 04/28/20 18:05:00 EDT Zofran 4 mg/2 mL Injection: 4 mg = 2 mL, Injection, IV Push, q4hr PRN Nausea/Vomiting, Routine, Start date 04/28/20 18:05:00 EDT morphine 2 mg/mL Inj: 2 mg = 1 mL, Injection, IV Push, q4hr PRN Pain 8-10 for 5 day(s), Stop date 05/03/20 18:04:00 EST, Routine, Start date 04/28/20 18:05:00 EDT morphine 2 mg/mL Inj: 4 mg = 2 mL, Injection, IV Push, q4hr PRN Pain 8-10 for 5 day(s), Stop date 05/03/20 18:04:00 EST, Routine, Start date 04/28/20 18:05:00 EDT Documented Medications Documented Basaglar KwikPen: 15 unit(s), SubCutaneous, TID, High blood sugar Restasis 0.05% ophthalmic emulsion: 1 drop(s), Eye-Both, BID, Dry eyes amLODIPine 10 mg Tab: 10 mg = 1 tab(s), Oral, Daily, High blood pressure aspirin 81 mg oral tablet: 81 mg = 1 tab(s), Oral, Daily, Prophylaxis hydrochlorothiazide-l isinopril 12.5 mg-20 mg Tab: 1 tab(s), Oral, Daily, High blood pressure metoprolol 25 mg ER Tab: See Instructions, 1.5 tab Oral Daily, Refills(s) 0, High blood pressure Problem list: All Problems DM kidney disease / SNOMED CT 386474227 / Confirmed PVD (peripheral vascular disease) / SNOMED CT 3992236126 / Confirmed MMT (medial meniscus tear) / SNOMED CT 770052824 / Confirmed Resolved: Ocular herpes zoster / SNOMED CT 328372835 Resolved: HTN (hypertension) / SNOMED CT 8799128491 Canceled: Diabetes / SNOMED CT 503150167 Histories Past Medical History: No active or resolved past medical history items have been selected or recorded. Family History: No family history items have been selected or recorded. Procedure history: Right eye cataract extraction and insertion of intraocular lens (6074519793) on 11/19/2019 at 69 Years. Cataract extraction and insertion of intraocular lens (8822633484) on 11/06/2019 at 69 Years. Comments: 11/06/2019 14:13 EDT - Fabian WU, Loreto Abreu Left Appendectomy (601222946). section x2 (03318363). Cholecystectomy (32540119). Anesthesia for laparoscopic procedure on lower abdomen (68609347). Cheilectomy of tarsal foot (6196606230). Social History Social & Psychosocial Habits Alcohol 04/24/2020 Risk Assessment: Denies Alcohol Use Substance Abuse 04/24/2020 Risk Assessment: Denies Substance Abuse Tobacco 04/24/2020 Risk Assessment: Denies Tobacco Use . Physical Examination Vital Signs 05/01/2020 13:00 EDT Heart Rate Monitored 81 bpm Systolic Blood Pressure 148 mmHg HI Diastolic Blood Pressure 66 mmHg Blood Pressure Location Left arm Mean Arterial Pressure, Monitered 93 mmHg 05/01/2020 12:59 EDT Heart Rate Monitored 87 bpm Systolic Blood Pressure 148 mmHg HI Diastolic Blood Pressure 80 mmHg Blood Pressure Location Right arm Mean Arterial Pressure, Monitered 103 mmHg 05/01/2020 12:18 EDT Heart Rate Monitored 87 bpm Systolic Blood Pressure 168 mmHg HI Diastolic Blood Pressure 75 mmHg Blood Pressure Location Left arm Mean Arterial Pressure, Monitered 106 mmHg 05/01/2020 12:17 EDT Temperature Oral 36.7 DegC Heart Rate Monitored 87 bpm Respiratory Rate 20 br/min Systolic Blood Pressure 171 mmHg HI Diastolic Blood Pressure 78 mmHg Blood Pressure Location Right arm Mean Arterial Pressure, Monitered 109 mmHg SpO2 98 % 05/01/2020 12:17 EDT Apical Heart Rate 84 bpm Respiratory: Lungs are clear to auscultation. Cardiovascular: Normal rate, Regular rhythm. Review / Management Results review Interpretation of Outside Results Chest x-ray results Radiology results ECG interpretation Condition Plan [place] [employer] (ASA) physical status classification: Class III. Anesthetic Preoperative (more content not included)... Normal [facility] Comment on above: Result Comment: Elec tronically Signed By: Gurmeet Aldridge Jr, DO\.br\Date and Time Signed: 05/05/20 08:22 EST Progress Note-Physician Patient: CLAUDIA ESTRELLA Age: 70 years Sex: Female : 1950 Associated Diagnoses: None Author: Gurmeet Aldridge Jr, DO Postoperative Information Post Operative Note: Post Anesthesia Care Unit. Anesthetic utilized: General. Health Status Allergies: Allergic Reactions (Selected) Severity Not Documented Erythromycin- Anaphylactic reaction. Penicillin- Hives. Problem list: All Problems DM kidney disease / SNOMED CT 978983779 / Confirmed PVD (peripheral vascular disease) / SNOMED CT 4138274296 / Confirmed MMT (medial meniscus tear) / SNOMED CT 737701200 / Confirmed Resolved: Ocular herpes zoster / SNOMED CT 168734898 Resolved: HTN (hypertension) / SNOMED CT 9709399963 Canceled: Diabetes / SNOMED CT 996787341 Physical Examination Vital Signs 05/01/2020 16:58 EDT Heart Rate Monitored 74 bpm Systolic Blood Pressure 114 mmHg Diastolic Blood Pressure 68 mmHg Blood Pressure Location Left arm SpO2 98 % BP/Pulse Patient Position Sitting 05/01/2020 16:55 EDT Heart Rate Monitored 69 bpm Respiratory Rate 12 br/min LOW Systolic Blood Pressure 130 mmHg Diastolic Blood Pressure 73 mmHg Blood Pressure Location Left arm Mean Arterial Pressure, Monitered 92 mmHg SpO2 97 % 05/01/2020 16:26 EDT SpO2 99 % 05/01/2020 16:23 EDT Heart Rate Monitored 69 bpm Respiratory Rate 16 br/min Systolic Blood Pressure 119 mmHg Diastolic Blood Pressure 62 mmHg Blood Pressure Location Right arm Mean Arterial Pressure, Monitered 81 mmHg SpO2 97 % BP/Pulse Patient Position Supine 05/01/2020 15:00 EDT Heart Rate Monitored 76 bpm bpm Respiratory Rate 24 br/min br/min SpO2 96 % % 05/01/2020 14:55 EDT Heart Rate Monitored 79 bpm bpm Respiratory Rate 30 br/min br/min Systolic Blood Pressure 123 mmHg mmHg Diastolic Blood Pressure 69 mmHg mmHg SpO2 98 % % 05/01/2020 14:50 EDT Heart Rate Monitored 84 bpm bpm Respiratory Rate 26 br/min br/min Systolic Blood Pressure 133 mmHg mmHg Diastolic Blood Pressure 75 mmHg mmHg SpO2 98 % % 05/01/2020 14:45 EDT Heart Rate Monitored 80 bpm bpm Respiratory Rate 26 br/min br/min Systolic Blood Pressure 134 mmHg mmHg Diastolic Blood Pressure 72 mmHg mmHg SpO2 100 % % 05/01/2020 14:40 EDT Heart Rate Monitored 75 bpm bpm Respiratory Rate 22 br/min br/min Systolic Blood Pressure 122 mmHg mmHg Diastolic Blood Pressure 62 mmHg mmHg SpO2 96 % % 05/01/2020 14:35 EDT Heart Rate Monitored 83 bpm bpm Respiratory Rate 24 br/min br/min Systolic Blood Pressure 139 mmHg mmHg Diastolic Blood Pressure 70 mmHg mmHg SpO2 99 % % 05/01/2020 14:30 EDT Heart Rate Monitored 84 bpm bpm Respiratory Rate 5 br/min br/min SpO2 95 % % 05/01/2020 14:29 EDT Systolic Blood Pressure 161 mmHg mmHg Diastolic Blood Pressure 76 mmHg mmHg 05/01/2020 13:00 EDT Heart Rate Monitored 81 bpm Systolic Blood Pressure 148 mmHg HI Diastolic Blood Pressure 66 mmHg Blood Pressure Location Left arm Mean Arterial Pressure, Monitered 93 mmHg 05/01/2020 12:59 EDT Heart Rate Monitored 87 bpm Systolic Blood Pressure 148 mmHg HI Diastolic Blood Pressure 80 mmHg Blood Pressure Location Right arm Mean Arterial Pressure, Monitered 103 mmHg 05/01/2020 12:18 EDT Heart Rate Monitored 87 bpm Systolic Blood Pressure 168 mmHg HI Diastolic Blood Pressure 75 mmHg Blood Pressure Location Left arm Mean Arterial Pressure, Monitered 106 mmHg 05/01/2020 12:17 EDT Temperature Oral 36.7 DegC Heart Rate Monitored 87 bpm Respiratory Rate 20 br/min Systolic Blood Pressure 171 mmHg HI Diastolic Blood Pressure 78 mmHg Blood Pressure Location Right arm Mean Arterial Pressure, Monitered 109 mmHg SpO2 98 % 05/01/2020 12:17 EDT Apical Heart Rate 84 bpm Vital Signs (last 24 hrs) Last Charted Temp Oral 36.7 DegC (MAY 01 12:17) Heart Rate Apical 84 bpm (MAY 01 12:17) SBP 114 mmHg (MAY 01 16:58) DBP 68 mmHg (MAY 01 16:58) SpO2 98 % (MAY 01 16:58) Pain assessment: Pain Assessment 05/01/2020 16:55 EDT Preliminary Pain Scale 4 05/01/2020 16:23 EDT Preliminary Pain Scale 3 05/01/2020 12:17 EDT Preliminary Pain Scale 0 05/01/2020 12:17 EDT Primary Pain Location Knee Primary Pain Laterality Left Numeric Pain Scale 0 = No pain . General: Alert and oriented, No acute distress. Respiratory: Lungs are clear to auscultation. Cardiovascular: Normal rate, Regular rhythm. Neurologic: Normal sensory. Review / Management Condition: Stable. Assessment Anesthetic outcome No anesthetic complications noted. Adequate pain relief. TOLERATING PO INTAKE. voiding w/o diff.. No Complaint of nausea and vomiting. Pt c/o CP substernal 11/09 after dilaudid . EKG obtained SR. Pain relieved with Sublingual NTG. Spoke with hospitalist he will admit also ordered stat serial troponin levels. will F/U Plan Transfer/ Discharge: Condition stable. Normal [facility] Comment on above: Result Comment: Elec tronically Signed By: Gurmeet Aldridge Jr, DO\.rashmi\Date and Time Signed: 05/05/20 08:22 EST Capillary Glucose POCon 11-0 Glucose [Mass/Vol] 149 mg/dL High 55-99 [facility] Comment on above: Result Comment: Monty MEDEIROS Performed By: #### 2 [id number] #### [facility] [address] [place] [address] Glucose [Mass/Vol] 127 mg/dL High 55-99 [facility] Comment on above: Result Comment: Monty MEDEIROS Performed By: #### 2 [id number] #### [facility] [address] [place] [address] Consent for Anesthesiaon Consent for Anesthesia [id number] .00CD:127 Normal [facility] Discharge Instructionson Discharge Instructions [id number]# 1.00CD:127 Normal [facility] Inpatient Clinical Summaryon 05-04-2020 Inpatient Clinical Summary [address] [address] Clinical Summary Person Information: Name: CLAUDIA ESTRELLA Age: 70 Years : 1950 Sex: Female PCP: JOHN PERDOMO DO Marital Status: Race: White Ethnicity: Non- or Language: Pakistani Visit Id: Visit Reason: LEFT KNEE BONE BRUISE, MEDIAL MENISCUS TEAR, EFFUSION Speciality: Acuity: Enc Type: Observation Med Service: Surgery Arrival: 05/01/2020 11:43:14 Discharge: Dispo Type: Address: [address] [place] [address] Provider Notes: Diagnosis: 1:Other chest pain; 2:Hypertension; 3:Diabetes; 4:Acute medial meniscus tear of left knee; 5:Localized osteoarthritis of left knee; 6:No contraindication to deep vein thrombosis (DVT) prophylaxis Problems Active Hypertension Diabetes Smoking Status: Functional Status: Sensory Deficits: History of Falls: Mobility Assistance Prior to Admission: ADLs: Current Level of Assistance for Self-Care/Mobility: Cognitive Status: Allergies penicillin (Hives) erythromycin (Anaphylactic reaction) Measurements: Height: Weight: 67.3 kg Blood Pressure: 163 mmHg / 77 mmHg BMI: Procedures Arthroscopy of knee (05/01/2020) Immunizations No Immunizations Documented This Visit Final Med List: amlodipine (amLODIPine 10 mg Tab) 1 Tablets By Mouth every day. aspirin (aspirin 81 mg oral tablet) 1 Tablets By Mouth every day. atorvastatin (Lipitor 20 mg Tab) 1 Tablets By Mouth at bedtime. Refills: 1. cycloSPORINE ophthalmic (Restasis 0.05% ophthalmic emulsion) 1 Drops Both eyes 2 times a day. hydrochlorothiazide-l isinopril (hydrochlorothiazide- lisinopril 12.5 mg-20 mg Tab) 1 Tablets By Mouth every day. insulin glargine (Basaglar KwikPen) 15 Units Subcutaneous 3 times a day. metoprolol (metoprolol 25 mg ER Tab) 1.5 tab Oral Daily. Care Team Members: Attending Physician: Nhung BARAHONA MD Consulting Physician: John Mcclellan MD Referring Physician: David Talamantes DO Follow up: With: Address: When: Follow up with [employer] Within 1 week With: Address: When: JOHN PERDOMO [address] [place], [place] [id number] Business (1) With: Address: When: David Talamantes [address] [place] [address] Business (1) Comments: Keep scheduled appointment Patient Education Information: Post Op Patient Instructions - FT (Custom); Knee Cryocuff Patient Instructions - FT (Custom); Talamantes - Knee Arthroscopy (Custom) (CUSTOM) Normal [facility] Inpatient Patient Summaryon 05-04-2020 Inpatient Patient Summary [address] [address] Patient Discharge Instructions PERSON INFORMATION Name: CLAUDIA ESTRELLA Date of : 1950 Current Date: 05/04/2020 12:16:47 PHYSICIANS Admitting Physician: Nhung BARAHONA MD Primary Care Physician: JOHN PERDOMO DO PCP Comment: Discharge Diagnosis: 1:Other chest pain; 2:Hypertension; 3:Diabetes; 4:Acute medial meniscus tear of left knee; 5:Localized osteoarthritis of left knee; 6:No contraindication to deep vein thrombosis (DVT) prophylaxis Condition at Discharge: Improved CLAUDIA ESTRELLA has been given the following list of follow-up instructions, prescriptions, and patient education materials: PATIENT FOLLOW-UP INFORMATION Diet: Regular, Drink liquids and eat a light meal Discharge Activity: Ambulate as tolerated, Arrange for a responsible adult supervision for 24 hours, Expect mild pain, Expect minimal amount of drainage and/or bleeding, Do not lift more than 5 lbs Discharge Restrictions: No driving for 24 hrs, Do not operate machinery or tools, Do not make important decisions for 24 hours, Do not drink alcoholic beverages for 24 hours Wound Care Instructions: Keep incision dry, Remove dressing as instructed Remove Your Dressing In 2 Days Call Your Doctor For: Persistent or heavy bleeding, Temperature above 101.5 degrees, Redness, swelling, or pus at operative site, Severe pain at the operative site, Persistent vomiting Return to Work: IF UNABLE TO CONTACT YOUR PHYSICIAN AND YOU FEEL IT IS AN EMERGENCY, GO TO THE NEAREST EMERGENCY ROOM OR CALL 911 Home Treatment: Devices/Equipment: Blood glucose monitor, Crutches Special Services: Additional Instructions: Discharge Instructions-OUTPT Entered On: 04/28/2020 18:06 EDT Performed On: 04/28/2020 18:06 EDT by David Talamantes DO Discharge Instructions Discharge Diet(s) : Regular, Drink liquids and eat a light meal Discharge Activity : Ambulate as tolerated, Arrange for a responsible adult supervision for 24 hours, Expect mild pain, Expect minimal amount of drainage and/or bleeding, Do not lift more than 5 lbs Discharge Restrictions : No driving for 24 hrs, Do not operate machinery or tools, Do not make important decisions for 24 hours, Do not drink alcoholic beverages for 24 hours Call Your Doctor For : Persistent or heavy bleeding, Temperature above 101.5 degrees, Redness, swelling, or pus at operative site, Severe pain at the operative site, Persistent vomiting Wound Care : Keep incision dry, Remove dressing as instructed Remove Dressing On : 2 David Talamantes DO - 04/28/2020 18:06 EDT Primary Care Physician to provide the following pending test results: None Follow up: With: Address: When: Follow up with [employer] Within 1 week With: Address: When: JOHN PERDOMO [employer] [address] [place] [address] Business (1) With: Address: When: David Talamantes [address] [place] [id number] Business (1) Comments: Keep scheduled appointment In the event that this physician does not participate in your insurance network, please consult with your insurance company to find a nearby participating provider. Comment: SAMEER Burnett SHARON E, have received the attached patient education materials/instruction s and have verbalized understanding: Patient Signature Date Clinican/Nurse Signature Date HERE ARE THE MEDICATION CHANGES THAT OCCURRED DURING YOUR HOSPITAL STAY New Medications [id number], [address] [place], [place] [id number], [phone] atorvastatin (Lipitor 20 mg Tab) 1 Tablets By Mouth at bedtime. Refills: 1. Last Dose: ____Next Dose: ____ Medications to Continue with No Changes Other Medications amlodipine (amLODIPine 10 mg Tab) 1 Tablets By Mouth every day. Last Dose: ____Next Dose: ____ aspirin (aspirin 81 mg oral tablet) 1 Tablets By Mouth every day. Last Dose: ____Next Dose: ____ cycloSPORINE ophthalmic (Restasis 0.05% ophthalmic emulsion) 1 Drops Both eyes 2 times a day. Last Dose: ____Next Dose: ____ hydrochlorothiazide-l isinopril (hydrochlorothiazide- lisinopril 12.5 mg-20 mg Tab) 1 Tablets By Mouth every day. Last Dose: ____Next Dose: ____ insulin glargine (Basaglar KwikPen) 15 Units Subcutaneous 3 times a day. Last Dose: ____Next Dose: ____ metoprolol (metoprolol 25 mg ER Tab) 1.5 tab Oral Daily. Last Dose: ____Next Dose: ____ Comment: MEDICATION LIST PROVIDED FOR YOU IS A LIST OF YOUR CURRENT MEDICATIONS. PLEASE CARRY THIS WITH YOU AT ALL TIMES. amlodipine (amLO (more content not included)... Normal [facility] Interdisciplinary Note - PTo n 05-04-2020 Interdisciplinary Note - PT PT Screen performed. Pt was able to stand and ambulate throughout room without difficulty and without an AD. Pt also demos appropriate ROM to knee. Would recommend to f/u with Ortho to determine if therapy is needed in the future, but no PT needed at this time [facility] IntraOperative Documentson 1 07-04-2019 IntraOperative Documents [id number]#1 .00CD:127 [facility] IntraOperative Documents [id number]#1 .00CD:127 [facility] Message from Medicareon 11-0 Message from Medicare [id number]# 1.00CD:127 [facility] Monitor Recordon 05-04-2020 Monitor Record [id number]# 1.00CD:127 [facility] Monitor Record [id number]# 1.00CD:127 [facility] Monitor Record [id number]# 1.00CD:127 [facility] Patient Education - Texton 1 07-04-2019 Patient Education - Text [place], [place] [facility] DISCHARGE INSTRUCTIONS: KNEE ARTHROSCOPY Diet Begin with a liquid diet and advance to your normal diet as tolerated. Activity You may gradually increase your activity as tolerated. Until your first post-operative visit elevate your knee higher than your heart, whenever you are sitting or lying down. Knee swelling will gradually decrease after surgery. Increased swelling is usually a sign of over-activity and should be a signal for you to be less active and apply ice as needed. Your exercise program is the caceres to successful rehabilitation of your knee. Do the exercises daily as instructed. You will receive further exercises at your next visit as needed. The possible need for Physical Therapy will then be discussed. You may bear weight on your operative leg, use your crutches or walker for walking until you can lift 5 pounds with a straight leg raise on the affected side. This is important for protection of your knee after surgery. Although you will find that you can walk without crutches or walker, it is not healthy for you until you regain adequate muscle strength. Use your crutches or walker until your limp is gone. Aspirin 325mg EC oral once a day for 3 weeks for blood clot prevention. You are encouraged to bend your knee as this is comfortably tolerated. Do not forcefully bend until you have permission by your surgeon. Driving is legal, but if you are involved in an accident, you must be able to prove that you maintained full control of your vehicle. For this reason, it is advised that you do not drive until your strength returns, generally in 1-2 weeks. Similarly, all sports activities are discouraged, at least until your first post-operative visit at which time we will discuss how and when to resume sports. Increased Pain Usually this is the result of over-activity and should respond well to rest, ice and elevation. If this does not provide relief, take the pain medication as directed but do not return to activity. If severe pain persists despite rest, elevation and medication, contact your surgeon. You will be given a prescription for pain medication when you leave the hospital. Please inform us of any known drug allergy. If you have any problems with the medication, it should be discontinued and our office notified. The sensation of splashing of fluid inside the knee is not cause for concern. It represents residual fluids from surgery and they will be absorbed generally in the first few days. Elevation of the leg and application of an ice pack to the knee will minimize swelling and discomfort in the first 48 hours after surgery. Incisions The portals of entry may be sore and develop bruising over the next several days. The bruising eventually resolves and does not require any special care. There may be some numbness around the portals that can take several days or several weeks to resolve as the swelling subsides. Do not apply creams or lotions to your knee. Your portals will heal best if kept dry. [facility] Discharge Instructs for Knee Arthroscopy Page 2 Dressing A soft compression dressing has been applied to your knee. This dressing should be comfortable and absorb any leakage of fluid after surgery. Although the dressing may become moist or blood stained, this is not usually a cause for concern. If this persists beyond 2-3 days, notify your surgeon. You may remove the dressing two days after your surgery. You may possibly have tape strips or sutures under the dressing. Do not remove these if present. Apply bandaids to the operative sites and keep these clean until your first post-operative visit. Apply betadine and band-aids to the puncture wounds in the morning (and again in the evening as needed) on a daily basis. Bathing You may shower after surgery. Bathing or soaking in water should be avoided until your first post-operative visit. Keep incisions dry until healed over. Precautions If you develop fever (101 degrees or above), increasing pain (not relieved by rest, elevation, ice and medication as prescribed), redness or persistent swelling in your calves or feet that doesn't respond to elevation, please contact the office or the hospital. If you notice increasing drainage from the operative portals after the first few days, this should also be reported. Return Visit Your post-operative follow-up appointment is generally between 10 and 14 days after surgery and you will be given an appointment card. Do not hesitate to call the office or the hospital if any problems or questions arise before your appointment. David Talamantes, DO [facility] [address] [place] [address] Reviewed: 10-08 [facility] Preoperative Documentson Preoperative Documents [id number]#1 .00CD:127 Normal [facility] Preoperative Documents [id number]#1 .00CD:127 Normal [facility] Prescriptions/Work Noteson 1 07-04-2019 Prescriptions/Work Notes [id number]#1 .00CD:127 Normal [facility] Capillary Glucose POCon Glucose [Mass/Vol] 183 mg/dL High 55-99 [facility] Comment on above: Performed By: #### 2 [id number] #### [facility] [address] [place] [address] Glucose [Mass/Vol] 155 mg/dL High 55-99 [facility] Comment on above: Performed By: #### 2 [id number] #### [facility] [address] [place] [address] Glucose [Mass/Vol] 113 mg/dL High 55-99 [facility] Comment on above: Result Comment: Monty MEDEIROS Performed By: #### 2 [id number] ####[facility] [address] [place] [address] Glucose [Mass/Vol] 112 mg/dL High 55-99 [facility] Comment on above: Performed By: #### 2 [id number] #### [facility] [address] [place] [address] Glucose [Mass/Vol] 85 mg/dL Normal 55-99 [facility] Comment on above: Result Comment: Monty MEDEIROS Performed By: #### 2 [id number] #### [facility] [address] [place] [address] Glucose [Mass/Vol] 59 mg/dL Normal 55-99 [facility] Comment on above: Result Comment: Monty MEDEIROS Performed By: #### 2 [id number] #### [facility] [address] [place] [address] Consultation Noteon 05-03-20 20 Consultation Note HOSPITAL REGULATIONS : ALL Positive Important Negative Findings Shall Be Recorded. Date of 05/02/2020 Consultation: Attending David Talamantes D.O. Physician: Consulting Eh Carter DO Physician: ORTHOPEDIC CONSULTATION HISTORY OF PRESENT ILLNESS: This is a 70-year-old female who underwent a left knee arthroscopy with partial medial meniscectomy performed by Dr. Talamantes on 05/01/2020. She underwent the knee scope successfully and was recovering in the Postanesthesia Care Unit. She was requiring some pain medication and was given a dose of Dilaudid. Subsequently, she had developed chest pain and some shortness of breath while treating her in the Recovery Unit. Her chest pain was described as being heaviness at that time frame and it was felt sternal. It lasted for approximately ten minutes. She was given a dose of nitroglycerin, which did help her symptoms. She has not had any chest pain since that time frame. She was admitted by the Hospitalist Service for observation and rule out acute coronary syndrome. Electrocardiogram was obtained as well as enzymes, which have been negative thus far. She does have a prior history of abnormal electrocardiogram findings and echocardiogram findings in the past and had been recommended for a cardiac catheterization prior to the COVID circumstances. She denies any other acute complaints, and her knee pain is well controlled. She denies any fevers, chills, nausea or vomiting. REVIEW OF SYSTEMS: As per the HISTORY OF PRESENT ILLNESS; otherwise, ten-point review of systems negative. PAST MEDICAL HISTORY: 1. Diabetes. 2. Hypertension. PAST SURGICAL HISTORY: 1. Surgical arthroscopy of the left knee by Dr. Talamantes 05/01/2020. 2. Cataract extraction bilateral eyes. 3. Laparoscopic surgery of the abdomen. 4. Appendectomy. 5. section. 6. Cheilectomy of the tarsal bone. 7. Cholecystectomy. HOME MEDICATIONS: Please see list. ALLERGIES: 1. Erythromycin. Reaction is anaphylaxis. 2. Penicillin. Reaction is hives. SOCIAL HISTORY: The patient denies alcohol, tobacco, or illicit drug use history. FAMILY HISTORY: Denies bleeding or blood-clotting disorders. PHYSICAL EXAMINATION: Vital Signs: Temperature is 36.5, pulse 86, respirations 14, blood pressure 149/76, oxygen saturation is 93% on one liter nasal cannula. General: The patient is alert and oriented, pleasant female who is cooperative with examination. She is in no apparent distress. Head and E.E.N.T.: Head atraumatic, normocephalic. Extraocular muscles intact. Neck: Trachea is midline. No cervical midline tenderness. Cardiovascular: Pulses are palpable distally 1+ and symmetric bilaterally dorsalis pedis and posterior tibial arteries, brisk capillary refill in digits. Respiratory: Respirations regular and unlabored. Abdomen: Soft, nontender, nondistended. No rebound, rigidity, or guarding. Musculoskeletal: Left lower extremity - Tolu wrap on the left lower extremity with an ice compression unit. The dressing is clear, dry, and intact to the lower extremity. It has no tenderness to palpation. Calves are soft, nontender, no edema. No other sites of musculoskeletal tenderness. Skin: Clear, dry, and intact. Dressing over the left knee was not removed due to postsurgical. Neurologic: Sensation intact to light touch in the bilateral lower extremities through L3 to S1 dermatomes. Dorsiflexion of extensor hallucis longus and plantar flexion of the ankles are symmetric and intact bilaterally. LABORATORY DATA: White count of 10.5, hemoglobin and hematocrit 11.2 and 32.4, platelets are 242. GFR is 32. Creatinine is 1.6. Troponins - most recent on 05/02 at 0420 was 5.1. ASSESSMENT: 1. Acute chest pain, rule out acute coronary syndrome. 2. Status post surgical arthroscopy of left knee for medial meniscus tear. 3. History of hypertension. 4. History of diabetes. 5. History of osteoarthritis of the left knee. PLAN: Discussed with the patient her clinical findings, and we will follow the recommendations of both Medicine and Cardiology. They wish to pursue an echocardiogram and will monitor the patient and follow her over this weekend. She is having no pain with her knee and is doing well otherwise. She may weightbear as tolerated. She can use crutches for assistance with ambulation as medically tolerated and appropriate. Ice to the left knee and elevate. Eh Carter DO [facility] Dictated: 05/02/2020 #[id number] Typed: 05/02/2020 #[id number] cc: DO David Nieto D.O. [facility] Comment on above: Result Comment: Elec tronically Signed By: Eh Carter DO\.br\Date and Time Signed: 05/03/20 10:27 EST Monitor Recordon 05-03-2020 Monitor Record [id number]# 1.00CD:127 Normal [facility] Monitor Record [id number]# 1.00CD:127 Normal [facility] Operative Reporton 0 Operative Report Date of Surgery: 05/01/2020 SURGEON: David Talamantes D.O. PREOPERATIVE DIAGNOSIS: Left knee medial meniscal tear with underlying osteoarthritis POSTOPERATIVE DIAGNOSIS: Left knee medial meniscal tear with underlying osteoarthritis OPERATION: Left knee arthroscopy with tricompartmental chondroplasty for all three compartments with partial medial meniscectomy ANESTHESIA: General ANESTHESIOLOGIST: Gurmeet Aldridge Jr., Hayden.O. TOURNIQUET TIME: See nurse's notes, 300 mmHg SPECIMEN: None ESTIMATED BLOOD LOSS: Zero COMPLICATIONS: None IMPLANTS: None HISTORY AND INDICATIONS: Claudia is a 70-year-old with progressive left knee pain with mechanical symptoms who failed conservative care. The pros, cons, risks, benefits, and reasonable expectations of the above procedure were discussed, consent form signed and charted. Sites markedly preoperatively. All questions answered preoperatively. PROCEDURE: The patient was taken to the Operating Room and placed in supine position. Anesthesia provided. A well-padded tourniquet was placed on the left upper thigh. The leg was prepped and draped in sterile fashion with ChloraPrep. A well-padded tourniquet was placed on the left thigh with a leg dowell. A time-out procedure occurred consistent with the consent form, History and Physical, preoperative marked site, and landmarks were identified. The leg was exsanguinated with a sterile Esmarch. Tourniquet was inflated to 300 mmHg. An anterolateral horizontal portal incision was made, and the arthroscope entered the knee joint. General inspection showed mild to moderate degenerative changes of the patella, no exposed bone, mild degenerative changes of the trochlea. Medial gutter was examined which had a large complex displaceable medial meniscal tear that was acute in nature. This was complex in nature as well. The anterior and posterior roots were stable. Anteromedial portal was established. Anterior and posterior roots were probed and deemed stable. Attention was then directed to the repair. Utilizing a basket biter as well as 4.0 shaver, a partial medial meniscectomy with stable margins was performed. Pre and post pictures were taken. Chondroplasty was performed of the medial femoral condyle and medial tibial plateau which had grade 3 degenerative change, no exposed bone. Anterior cruciate ligament and posterior cruciate ligament were intact to inspection and probing, no tear or patholaxity. The lateral joint had degenerative characteristics of the lateral meniscus, no tear. There was moderate degenerative change to a lesser degree as compared to the medial with grade 2-3 degenerative change of the lateral tibia and femur. Chondroplasty was performed in this area with a 4.0 shaver. Pre and post pictures were taken. The anterior and posterior roots of the lateral meniscus were stable to inspection and probing. Attention was then directed to the patellofemoral joint. Chondroplasty was performed with pre and post pictures taken. It was copiously irrigated out. All instrumentation was removed. 20 cc of 1% plain lidocaine was injected. Bacitracin, Adaptic, and well-padded sterile soft dressing were applied. Tourniquet was deflated. The patient was awakened from anesthesia and transferred to the Recovery Room in stable and satisfactory condition. CASE: Clean and elective COUNTS: Sponge and needle count correct SPECIMEN: None CONDITION: The patient's condition satisfactory David Talamantes D.O. [facility] Dictated: 05/01/2020 #[id number] Typed: 05/01/2020 #[id number] cc: Randa Lanier D.O. [facility] Comment on above: Result Comment: Elec tronically Signed By: David Talamantse DO\.br\Date and Time Signed: 05/03/20 09:22 EST Progress Note-Physicianon Progress Note-Physician Assessment/Plan 1. Other chest pain (R07.89: Other chest pain) - ACS ruled out - d/w cardiology, plan for stress test and echo and monday - started on atorvastatin as per cardiology with bilateral carotid stenosis 2. Hypertension (I10: Essential (primary) hypertension) - hctz/lisinopril, norvasc, metoprolol 3. Diabetes (E11.9: Type 2 diabetes mellitus without complications) - SSI - lantus 4. Acute medial meniscus tear of left knee (S83.242A: Other tear of medial meniscus, current injury, left knee, initial encounter) - management as per ortho 5. Localized osteoarthritis of left knee (M17.12: Unilateral primary osteoarthritis, left knee) - management as per ortho 6. No contraindication to deep vein thrombosis (DVT) prophylaxis (Z78.9: Other specified health status) - SCDs Bruit (R09.89: Other specified symptoms and signs involving the circulatory and respiratory systems) Orders: Capillary Glucose POC Communication Order NPO Diet Subjective Pt denies any chest pain or sob. No nausea or vomiting. Review of Systems Constitutional: No fevers, chills Eye: Negative. Ear/Nose/Mouth/Throat : Negative. Respiratory: Negative Cardiovascular: Negative. Gastrointestinal: Negative. Genitourinary: Negative. Immunologic: Negative. Musculoskeletal: Negative. Integumentary: Negative. Neurologic: Negative. Psychiatric: Negative. All other systems are negative Objective Vitals & Measurements T: 36.7 ?C (Oral) TMIN: 36.6 ?C (Oral) TMAX: 36.8 ?C (Oral) HR: 88(Monitored) RR: 20 BP: 147/80 SpO2: 92% WT: 69.9 kg Intake & Output This visit (24 hour periods starting at 07:00 EST) 05/03/20 * 05/02/20 05/01/20 Total Summary Intake mL -- -- 1,128.8 Output mL -- -- -- Fluid Balance -- -- 1,128.8 Intake (8) Lactated Ringers Injection mL -- -- 350 Lactated Ringers Injection 1,000 mL mL -- -- 100 Oral Intake mL -- -- 650 hydromorphone mL -- -- 0.8 lidocaine mL -- -- 2 midazolam mL -- -- 2 ondansetron mL -- -- 4 propofol mL -- -- 20 Total -- -- 1,128.8 Output (1) Urine Voided mL -- -- -- Total -- -- -- Counts (2) Stool Count -- -- -- Urine Count -- -- 2 * This column has not completed the indicated time period. Indicates a 25 hour day. Physical Exam General: alert, no acute distress ENMT: oral mucosa moist, no pharyngeal erythema or exudate Cardiovascular: regular rate and rhythm, normal peripheral perfusion Respiratory: Lungs CTA, respirations non labored Abdomen: soft, NTND, +BS Skin: warm, dry, intact Extremities: no deformity, no trauma Neurological: LOC appropriate for age, CN II-XII intact, motor strength equal & normal bilaterally, sensation equal & normal bilaterally, speech normal Lab Results Glucose Cap: 113 mg/dL High (05/03/20 12:18:00) POC Device SN: [id number] (05/03/20 12:18:00) POC Username: [email or web address] BROWN (05/03/20 12:18:00) Problem List/Past Medical History Ongoing Diabetes Hypertension Historical No qualifying data Medications Inpatient acetaminophen 325 mg Tab, 650 mg= 2 tab(s), Oral, q6hr, PRN Al hydroxide/Mg hydroxide/simethicone 200 mg-200 mg-20 mg/5 mL oral suspension, 30 mL, Oral, q6hr, PRN amLODIPine 10 mg Tab, 10 mg= 1 tab(s), Oral, Daily aspirin 325 mg Oral EC Tab, 325 mg= 1 tab(s), Oral, Daily hydrochlorothiazide 12.5 mg Tab, 12.5 mg= 1 tab(s), Oral, Daily HYDROmorphone 1 mg/mL injectable solution, 1 mg= 1 mL, IV Push, q2hr, PRN Levemir 100 units/mL Injection-Insulin, 15 unit(s)= 0.15 mL, SubCutaneous, TID Lipitor 20 mg Tab, 20 mg= 1 tab(s), Oral, Bedtime lisinopril 20 mg Tab, 20 mg= 1 tab(s), Oral, Daily metoprolol 25 mg ER Tab, 37.5 mg= 1.5 tab(s), Oral, Daily Milk of Magnesia 8% Susp-Oral, 30 mL, Oral, q6hr, PRN morphine 2 mg/mL Inj, 2 mg= 1 mL, IV Push, q2hr, PRN morphine 2 mg/mL Inj, 2 mg= 1 mL, IV Push, q4hr, PRN morphine 2 mg/mL Inj, 4 mg= 2 mL, IV Push, q4hr, PRN nitroglycerin 0.4 mg sublingual Tab, 0.4 mg= 1 tab(s), SubLingual, q5min, PRN [place]way 5/325 Tab, 1 tab(s), Oral, q4hr, PRN ocular lubricant preserved Radha, 2 drop(s), OPTH, QID Zofran 4 mg/2 mL Injection, 4 mg= 2 mL, IV Push, q4hr, PRN Home amLODIPine 10 mg Tab, 10 mg= 1 tab(s), Oral, Daily aspirin 81 mg oral tablet, 81 mg= 1 tab(s), Oral, Daily Basaglar KwikPen, 15 unit(s), SubCutaneous, TID hydrochlorothiazide-l isinopril 12.5 mg-20 mg Tab, 1 tab(s), Oral, Daily metoprolol 25 mg ER Tab, See Instructions Restasis 0.05% ophthalmic emulsion, 1 drop(s), Eye-Both, BID Normal [facility] Comment on above: Result Comment: Elec tronically Signed By: JUN VIGIL, Nhung\.br\Date and Time Signed: 05/03/20 14:42 EST Progress Note-Physician Subjective Patient doing well, no further chest pain. Patient still has some pain in her knee, Review of Systems Constitutional: no fever, no chills, no weakness, no fatigue Respiratory: no shortness of breath, no cough, no orthopnea, no wheezing Cardiovascular: no chest pain, no palpitations, no edema Neuro: no dizziness no light headed no syncope Additional ROS info: Except as noted in the above Review of Systems and in the History of Present Illness all other systems have been reviewed and are negative or noncontributory. Objective Vitals & Measurements T: 36.7 ?C (Oral) TMIN: 36.5 ?C (Oral) TMAX: 36.8 ?C (Oral) HR: 94(Monitored) RR: 20 BP: 134/73 SpO2: 92% WT: 69.9 kg Intake & Output This visit (24 hour periods starting at 07:00 EST) 05/03/20 * 05/02/20 05/01/20 Total Summary Intake mL -- -- 1,128.8 Output mL -- -- -- Fluid Balance -- -- 1,128.8 Intake (8) Lactated Ringers Injection mL -- -- 350 Lactated Ringers Injection 1,000 mL mL -- -- 100 Oral Intake mL -- -- 650 hydromorphone mL -- -- 0.8 lidocaine mL -- -- 2 midazolam mL -- -- 2 ondansetron mL -- -- 4 propofol mL -- -- 20 Total -- -- 1,128.8 Output (1) Urine Voided mL -- -- -- Total -- -- -- Counts (2) Stool Count -- -- -- Urine Count -- -- 2 * This column has not completed the indicated time period. Indicates a 25 hour day. Physical Exam General: alert, no acute distress Neck: Supple, noJVD yescarotid bruit Cardiovascular: regular rate and rhythm, no murmur normal peripheral perfusion Respiratory: Lungs CTA, respirations non labored Extremities: no edema Neurological: oriented x 4, LOC appropriate for age, sensation equal & normal bilaterally, speech normal Skin: Warm, dry, intact- no rash or concerning lesions Lab Results Glucose Cap: 112 mg/dL High (05/03/20 07:32:00) POC Device SN: [id number] (05/03/20 07:32:00) POC Username: POC Username (05/03/20 07:32:00) Diagnostic Results Carotid ultrasound results: (05/02/2020 13:21 EDT US Carotid Duplex Bilateral) IMPRESSION: 50-69% STENOSIS IS PREDICTED OF BOTH INTERNAL CAROTID ARTERIES. ANTEGRADE FLOW BOTH VERTEBRAL AREAS. [1] Assessment/Plan 1. Other chest pain (R07.89: Other chest pain) Patient with nonexertional chest pain possibly consistent with unstable angina, superimposed on peripheral vascular disease, hypertension, hyperlipidemia, and strong positive family history. Troponins are negative. I recommended the patient undergo a 2D echo with Doppler tomorrow morning followed by a dobutamine echocardiogram as she is unable to walk due to her recent knee surgery. If either 1 of these are grossly abnormal, the patient may require diagnostic coronary angiogram. 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 Continue baby aspirin and hydrochlorothiazide. 2. Hypertension (I10: Essential (primary) hypertension) Patient with mildly elevated hypertension but also has significant knee pain status post surgery. Continue amlodipine, metoprolol and lisinopril. The patient may require increasing her lisinopril to assist with vascular remodeling. 3. Diabetes (E11.9: Type 2 diabetes mellitus without complications) Given the patient's discovered vascular disease with bilateral carotid stenosis, recommend aggressive LDL reduction. Lipitor started yesterday and repeat lipid profile in 6 weeks time. LDL should be less than 70. 4. Acute medial meniscus tear of left knee (S83.242A: Other tear of medial meniscus, current injury, left knee, initial encounter) 5. Localized osteoarthritis of left knee (M17.12: Unilateral primary osteoarthritis, left knee) 6. No contraindication to deep vein thrombosis (DVT) prophylaxis (Z78.9: Other specified health status) Bruit (R09.89: Other specified symptoms and signs involving the circulatory and respiratory systems) Ordered: US Carotid Duplex Bilateral Orders: DOBUTamine 100 mg [5 mcg/kg/min] + Sodium Chloride 0.9% intravenous solution 100 mL, 100 mL, IV, 20.7 mL/hr, for 1 dose(s), Stop date 05/02/20 13:17:00 EDT, Routine, Start date 05/02/20 8:30:00 EDT, 4.8 hour(s), Total volume (mL): 100, Test dose starts at 5mcg/kg/min with increases every 3 mins per protocol until max HR or max dose is... Problem List/Past Medical History Ongoing Diabetes Hypertension Historical No qualifying data Medications Inpatient acetaminophen 325 mg Tab, 650 mg= 2 tab(s), Oral, q6hr, PRN Al hydroxide/Mg hydroxide/simethicone 200 mg-200 mg-20 mg/5 mL oral suspension, 30 mL, Oral, q6hr, PRN amLODIPine 10 mg Tab, 10 mg= 1 tab(s), Oral, Daily aspirin 325 mg Oral EC Tab, 325 mg= 1 tab(s), Oral, Daily hydrochlorothiazide 12.5 mg Tab, 12.5 mg= 1 tab(s), Oral, Daily HYDROmorphone 1 mg/mL injectable solution, 1 mg= 1 mL, IV Push, q2hr, PRN L (more content not included)... Normal [facility] Comment on above: Result Comment: Elec tronically Signed By: Eleuterio VIGIL, John Olson\.br\Date and Time Signed: 05/03/20 07:45 EST Capillary Glucose POCon 10- Glucose [Mass/Vol] 212 mg/dL High 55- [facility] Comment on above: Performed By: #### 2 [id number] #### [facility] [address] [place] [address] Glucose [Mass/Vol] 138 mg/dL High - [facility] Comment on above: Performed By: #### 2 [id number] #### [facility] [address] [place] [address] Glucose [Mass/Vol] 139 mg/dL High - [facility] Comment on above: Performed By: #### 2 [id number] #### [facility] [address] [place] [address] Glucose [Mass/Vol] 105 mg/dL High - [facility] Comment on above: Performed By: #### 2 [id number] #### [facility] [address] [place] [address] Glucose [Mass/Vol] 233 mg/dL High - [facility] Comment on above: Result Comment: Monty pelayo RN/ Performed By: #### 2 [id number] ####[facility] [id number] [place] [address] Lipid Panelon 05-02-2020 Cholesterol [Mass/Vol] 160 mg/dL Normal 120-200 [facility] Comment on above: Performed By: #### 2 [id number] #### [facility] [address] [place] [address] Cholesterol in HDL [Mass/Vol] 49 mg/dL Invalid Interpretation Code [facility] Comment on above: Result Comment: HDL > or equal to 60 mg/dL: Low cardiovascular risk HDL < 40 mg/dL : High cardiovascular risk Performed By: #### 2 [id number] #### [facility] [address] [place] [address] Cholesterol in LDL [Mass/Vol] 98 mg/dL Normal <=129 [facility] Comment on above: Performed By: #### 2 [id number] #### [facility] [address] [place] [address] Cholesterol in VLDL [Mass/Vol] 12 mg/dL Normal 7-40 [facility] Comment on above: Performed By: #### 2 [id number] #### [facility] [address] [place] [address] Triglyceride [Mass/Vol] 61 mg/dL Normal <=149 [facility] Comment on above: Performed By: #### 2 [id number] #### [facility] [address] [place] [address] Monitor Recordon 05-02-2020 Monitor Record [id number]# 1.00CD:127 Normal [facility] Progress Note-Physicianon Progress Note-Physician Assessment/Plan 1. Other chest pain (R07.89: Other chest pain) - ACS ruled out - d/w cardiology, plan for stress test and echo and monday Ordered: 2. Hypertension (I10: Essential (primary) hypertension) - hctz/lisinopril, norvasc, metoprolol 3. Diabetes (E11.9: Type 2 diabetes mellitus without complications) - SSI - lantus 4. Acute medial meniscus tear of left knee (S83.242A: Other tear of medial meniscus, current injury, left knee, initial encounter) - management as per ortho 5. Localized osteoarthritis of left knee (M17.12: Unilateral primary osteoarthritis, left knee) - as above 6. No contraindication to deep vein thrombosis (DVT) prophylaxis (Z78.9: Other specified health status) - SCDs - d/w patient and family at bedside Bruit (R09.89: Other specified symptoms and signs involving the circulatory and respiratory systems) Orders: acetaminophen, 650 mg = 2 tab(s), Tab, Oral, q6hr PRN Pain, Routine, Start date 05/01/20 18:18:00 EDT Al hydroxide/Mg hydroxide/simethicone , 30 mL, Susp-Oral, Oral, q6hr PRN Indigestion, Routine, Start date 05/01/20 18:18:00 EDT amlodipine, 10 mg = 1 tab(s), Tab, Oral, Daily, Routine, Start date 05/02/20 9:00:00 EDT aspirin, 81 mg = 1 tab(s), Tab-EC, Oral, Daily, Routine, Start date 05/02/20 9:00:00 EDT hydrochlorothiazide, 12.5 mg = 1 tab(s), Tab, Oral, Daily, Routine, Start date 05/02/20 9:00:00 EDT insulin detemir, 15 unit(s) = 0.15 mL, Injection-Insulin, SubCutaneous, TID, Routine, Start date 05/02/20 14:00:00 EDT lisinopril, 20 mg = 1 tab(s), Tab, Oral, Daily, Routine, Start date 05/02/20 9:00:00 EDT magnesium hydroxide, 30 mL, Susp-Oral, Oral, q6hr PRN Constipation, Routine, Start date 05/01/20 18:18:00 EDT metoprolol, 37.5 mg = 1.5 tab(s), Tab-ER, Oral, Daily, Routine, Start date 05/02/20 9:00:00 EDT morphine, 2 mg = 1 mL, Injection, IV Push, q2hr PRN Chest pain for 5 day(s), Stop date 05/06/20 18:17:00 EST, Routine, Start date 05/01/20 18:18:00 EDT nitroglycerin, 0.4 mg = 1 tab(s), Tab, SubLingual, q5min PRN Chest pain for 3 dose(s), Stop date Limited # of times, Routine, Start date 05/01/20 18:18:00 EDT ocular lubricant, 2 drop(s), Soln-Opth, OPTH, QID, Routine, Start date 05/02/20 13:00:00 EDT ondansetron, 4 mg = 2 mL, Injection, IV Push, q6hr PRN Nausea, Routine, Start date 05/01/20 18:18:00 EDT Ambulate with Assistance Automated Diff Basic Metabolic Panel Below the Knee Intermittent Pneumatic Compression Device Cardiac Diet Cardiac Monitoring CBC w/ Auto Diff Chest Pain, AMI Quality Measures Communication Order Consult to Cardiology eGFR Evaluate Need For Continued Telemetry Incentive Spirometry Intake and Output Lipid Panel Notify Provider Vital Signs Notify Provider Vital Signs Oxygen Protocol Place in Status Pulse Oximetry Vital Signs Weight Subjective Pt denies any chest pain or sob. No nausea or vomiting. Review of Systems Constitutional: No fevers, chills Eye: Negative. Ear/Nose/Mouth/Throat : Negative. Respiratory: Negative Cardiovascular: Negative. Gastrointestinal: Negative. Genitourinary: Negative. Immunologic: Negative. Musculoskeletal: Negative. Integumentary: Negative. Neurologic: Negative. Psychiatric: Negative. All other systems are negative Objective Vitals & Measurements T: 36.5 ?C (Oral) TMIN: 36.3 ?C (Oral) TMAX: 36.8 ?C (Temporal Artery) HR: 77(Apical) RR: 16 BP: 152/68 SpO2: 95% WT: 69.0 kg WT: 69.0 kg Intake & Output This visit (24 hour periods starting at 07:00 EDT) 05/02/20 * 05/01/20 04/30/20 Total Summary Intake mL -- 1,128.8 -- Output mL -- -- -- Fluid Balance -- 1,128.8 -- Intake (8) Lactated Ringers Injection mL -- 350 -- Lactated Ringers Injection 1,000 mL mL -- 100 -- Oral Intake mL -- 650 -- hydromorphone mL -- 0.8 -- lidocaine mL -- 2 -- midazolam mL -- 2 -- ondansetron mL -- 4 -- propofol mL -- 20 -- Total -- 1,128.8 -- Output (1) Urine Voided mL -- -- -- Total -- -- -- Counts (2) Stool Count -- -- -- Urine Count -- 2 -- * This column has not completed the indicated time period. Indicates a 25 hour day. Physical Exam General: alert, no acute distress ENMT: oral mucosa moist, no pharyngeal erythema or exudate Cardiovascular: regular rate and rhythm, normal peripheral perfusion Respiratory: Lungs CTA, respirations non labored Abdomen: soft, NTND, +BS Skin: warm, dry, intact Extremities: no deformity, no trauma Neurological:LOC appropriate for age, CN II-XII intact, motor strength equal & normal bilaterally, sensation equal & normal bilaterally, speech normal Lab Results WBC: 10.5 E9/L (05/01/20 18:27:00) RBC: 3.8 E12/L Low (05/01/20 18:27:00) Hgb: 11.2 gm/dL Low (05/01/20 18:27:00) Hct: 32.4 % Low (05/01/20 18:27:00) MCV: 85.5 fL (05/01/20 18:27:00) MCH: 29.6 pg (05/01/20:27:00) (more content not included)... Normal [facility] Comment on above: Result Comment: Elec tronically Signed By: JUN VIGIL, Nhung\.br\Date and Time Signed: 05/02/20 10:00 EDT Troponin 3 Hr.on 05-02-2020 Troponin I.cardiac [Mass/Vol] 3.60 pg/mL Low 10.-27.10 [facility] Comment on above: Result Comment: The 95% CI (Confidence Interval) PPV (Positive Predictive Value) for myocardial infarction in females is 38 pg/mL, in males 51 pg/mL. The results should be used in conjunction with clinical conditions of myocardial infarction. (Access High Sensitivity Troponin I Instructions For Use, [employer], January 2018) Performed By: #### 2 [id number] #### [facility] [address] [place] [address] Troponin 6 Hr.on 05-02-2020 Troponin I.cardiac [Mass/Vol] 3.90 pg/mL Low 10.10-27.10 [facility] Comment on above: Result Comment: The 95% CI (Confidence Interval) PPV (Positive Predictive Value) for myocardial infarction in females is 38 pg/mL, in males 51 pg/mL. The results should be used in conjunction with clinical conditions of myocardial infarction. (Access High Sensitivity Troponin I Instructions For Use, [employer], January 2018) Performed By: #### 2 [id number] #### [facility] [address] [place] [address] Troponin 9 Hr.on 05-02-2020 Troponin I.cardiac [Mass/Vol] 5.10 pg/mL Low 10.10-27.10 [facility] Comment on above: Result Comment: The 95% CI (Confidence Interval) PPV (Positive Predictive Value) for myocardial infarction in females is 38 pg/mL, in males 51 pg/mL. The results should be used in conjunction with clinical conditions of myocardial infarction. (Access High Sensitivity Troponin I Instructions For Use, [place] [place], January 2018) Performed By: #### 2 [id number] #### [facility] [address] [place] [address] US Carotid Duplex Bilateralo n 05-02-2020 US Carotid Duplex Bilateral Exam Date/Time: 05/02/2020 13:21 EDT Reason for Exam: Bruit Report IMPRESSION: 50-69% STENOSIS IS PREDICTED OF BOTH INTERNAL CAROTID ARTERIES. ANTEGRADE FLOW BOTH VERTEBRAL AREAS. CLINICAL HISTORY: Bruit COMPARISON: None available. COMMENT: Bilateral plaque identified. There is antegrade blood flow in the right and left vertebral arteries in the neck. On Doppler images, the peak systolic velocity measurements in centimeters per second are as follows: Right proximal common carotid artery is 92.6 / 18.6, right distal common carotid artery is 146.0 / 19.1, right proximal internal carotid artery is 113.0 / 23.4, right mid internal carotid artery is 165.0 / 27.1, right distal internal carotid artery is 198.0 / 34.1, right external carotid artery is 479.0 cm/s, left proximal common carotid artery is 170.0 / 23.0, left distal common carotid artery is 102.0 / 20.9, left proximal internal carotid artery is 89.2 / 27.4, left mid internal carotid artery is 169.0 / 31.6, left distal internal carotid artery is 199.0 / 45.3, left external carotid artery is 199.0 cm/s. The peak systolic internal carotid to common carotid artery ratio on the right is 1.4 and on the left is 2.0. Validated velocity measurements with angiographic measurements, velocity criteria are extrapolated from diameter data as defined by the Society of Radiologist in Ultrasound Consensus Conference Radiology 2003; 229;340-346. FINAL REPORT Dictated: 05/02/2020 4:05 pm Benny Cleveland DO Signed (Electronic Signature): 05/02/2020 4:05 pm Signed by: Benny Cleveland DO Transcribed by: LUDIN Technologist: PUJA Technical Comments Velocities Right ICA/CCA 1.4 Prox CCA (cm/sec): 93/19 Distal CCA (cm/sec): 146/19 Bifurcation (cm/sec): 100/19 Prox ICA (cm/sec): 113/23 Technical Comments Mid ICA (cm/sec): 165/27 Distal ICA (cm/sec): 198/34 Prox ECA (cm/sec): 479/18 Vert. Antegrade Yes Velocities Left ICA/CCA 1.9 Prox CCA (cm/sec): 170/23 Distal CCA (cm/sec): 102/21 Bifurcation (cm/sec): 121/23 Prox ICA (cm/sec): 89/27 Mid ICA (cm/sec): 169/32 Distal ICA (cm/sec): 199/45 Prox ECA (cm/sec): 199/15 Vert. Antegrade Yes Normal [facility] Auto Diffon 05-01-2020 Basophils/100 WBC (Bld) 0.4 % Normal 0.0-2.0 [facility] Comment on above: Order Comment: Order Added by Discern Expert. Performed By: #### 2 [id number], [id number], [id number], [id number] #### [facility] [address] [place] [address] Basophils/Leukocytes Auto (Bld) [Pure # fraction] 0.0 E9/L Normal 0.0-0.2 [facility] Comment on above: Order Comment: Order Added by Discern Expert. Performed By: #### 2 146062, [id number], 8819760, [id number] #### [facility] [address] [place] [address] Eosinophils/100 WBC (Bld) 1.2 % Normal 0.0-8.0 [facility] Comment on above: Order Comment: Order Added by Discern Expert. Performed By: #### 2 203324, [id number], 5007942, 7545977 #### [facility] [address] [place] [address] Eosinophils/Leukocyte s Auto (Bld) [Pure # fraction] 0.1 E9/L Normal 0.0-0.5 [facility] Comment on above: Order Comment: Order Added by Discern Expert. Performed By: #### 2 386476, [id number], 1821454, 0651021 #### [facility] [address] [place] [address] Lymphocytes/100 WBC (Bld) 9.7 % Low 14.0-50.0 [facility] Comment on above: Order Comment: Order Added by Discern Expert. Performed By: #### 2 678657, [id number], 4463122, 1701551 #### [facility] [address] [place] [address] Lymphocytes/Leukocyte s Auto (Bld) [Pure # fraction] 1.0 E9/L Normal 1.0-4.0 [facility] Comment on above: Order Comment: Order Added by Discern Expert. Performed By: #### 2 473628, 07746047, 2752205, 4942963 #### [facility] [address] [place] [address] Monocytes/100 WBC (Bld) 4.2 % Normal 4.0-14.0 [facility] Comment on above: Order Comment: Order Added by Discern Expert. Performed By: #### 2 996884, [id number], 0819783, 5052647 #### [facility] [address] [place] [address] Monocytes/Leukocytes Auto (Bld) [Pure # fraction] 0.4 E9/L Normal 0.2-1.0 [facility] Comment on above: Order Comment: Order Added by Discern Expert. Performed By: #### 2 148769, 35692730, 8838620, 2305860 #### [facility] [address] [place] [address] Neutrophils/100 WBC (Bld) 84.5 % High 36.0-75.0 [facility] Comment on above: Order Comment: Order Added by Discern Expert. Performed By: #### 2 114820, 85469230, 4564642, 0618916 #### [facility] [address] [place] [address] Neutrophils/Leukocyte s Auto (Bld) [Pure # fraction] 8.9 E9/L High 2.0-7.5 [facility] Comment on above: Order Comment: Order Added by Discern Expert. Performed By: #### 2 687805, 91478917, 8521830, 0165259 #### [facility] [address] [place] [address] BMPon 05-01-2020 Calcium [Mass/Vol] 8.9 mg/dL Normal 8.9-11.1 [facility] Comment on above: Performed By: #### 2 766000, 56998550, 5278409, 6784064 #### [facility] [address] [place] [address] Anion gap [Moles/Vol] 10 mmol/L Normal 6-16 [facility] Comment on above: Performed By: #### 2 269778, 60806955, 2997770, 4211420 #### [facility] [address] [place] [address] Chloride [Moles/Vol] 103 mmol/L Normal 101-111 [facility] Comment on above: Performed By: #### 2 285663, 70672735, 4515463, 1037213 #### [facility] [address] [place] [address] CO2 [Moles/Vol] 24 mmol/L Normal 21-31 [facility] Comment on above: Performed By: #### 2 781540, 30649384, 7977881, 6721610 #### [facility] [address] [place] [address] Creatinine [Mass/Vol] 1.6 mg/dL High 0.5-1.3 [facility] Comment on above: Performed By: #### 2 610257, 35143038, 4621107, 4691538 #### [facility] [address] [place] [address] Glucose [Mass/Vol] 167 mg/dL Normal 55-199 [facility] Comment on above: Result Comment: If t his glucose result represents a fasting glucose, interpretation should refer to the following reference range: 55-99 mg/dL Performed By: #### 2 681162, [id number], 9199622, 9219896 #### [facility] [address] [place] [address] Potassium [Moles/Vol] 3.9 mmol/L Normal 3.5-5.3 [facility] Comment on above: Performed By: #### 2 675436, 37285708, 5437373, 6983361 #### [facility] [address] [place] [address] Sodium [Moles/Vol] 133 mmol/L Low 135-145 [facility] Comment on above: Performed By: #### 2 883565, 26703412, 4341786, 8795448 #### [facility] [address] [place] [address] Urea nitrogen [Mass/Vol] 34 mg/dL High 5-21 [facility] Comment on above: Performed By: #### 2 456873, 79790062, 8662895, 7226971 #### [facility] [address] [place] [address] Urea nitrogen/Creatinine [Mass ratio] 21 No Units High 10-20 [facility] Comment on above: Performed By: #### 2 144364, 22307109, 5658697, 6539010 #### [facility] [address] [place] [address] CBC w/ Auto Diffon 10-30-202 0 Erythrocyte distribution width (RBC) [Ratio] 13.0 % Normal 10.9-14.2 [facility] Comment on above: Performed By: #### 2 352487, 18446111, 2608703, 5644456 #### [facility] [address] [place] [address] Hematocrit (Bld) [Volume fraction] 32.4 % Low 34.0-46.0 [facility] Comment on above: Performed By: #### 2 959691, 47221150, 0731510, 7041997 #### [facility] [address] [place] [address] Hemoglobin (Bld) [Mass/Vol] 11.2 g/dL Low 12.0-16.0 [facility] Comment on above: Performed By: #### 2 267601, 77124194, 1741620, 0630284 #### [facility] [address] [place] [address] MCH (RBC) [Entitic mass] 29.6 pg Normal 27.0-34.0 [facility] Comment on above: Performed By: #### 2 539721, 47133376, 7376879, 2286998 #### [facility] [address] [place] [address] MCHC (RBC) [Mass/Vol] 34.6 g/dL Normal 31.4-36.0 [facility] Comment on above: Performed By: #### 2 907435, 42390727, 6645177, 8453687 #### [facility] [address] [place] [address] MCV (RBC) [Entitic vol] 85.5 fL Normal 80.0-100.0 [facility] Comment on above: Performed By: #### 2 996035, 73508258, 2601146, 6796205 #### [facility] [address] [place] [address] Platelet mean volume (Bld) [Entitic vol] 8.4 fL Normal 6.4-10.8 [facility] Comment on above: Performed By: #### 2 294846, 88680036, 6333733, 8547677 #### [facility] [address] [place] [address] Platelets (Bld) [#/Vol] 242.0 E9/L Normal 150.0-500.0 [facility] Comment on above: Performed By: #### 2 557410, 82460915, 5389478, 6833720 #### [facility] [address] [place] [address] RBC (Bld) [#/Vol] 3.8 E12/L Low 4.3-5.9 [facility] Comment on above: Performed By: #### 2 446866, 82124227, 0044325, 9200045 #### [facility] [address] [place] [address] WBC corrected for nucl RBC Auto (Bld) [#/Vol] 10.5 E9/L Normal 4.0-11.0 [facility] Comment on above: Performed By: #### 2 005971, 59883082, 1355930, 6422189 #### [facility] [address] [place] [address] Capillary Glucose POCon 04-04 Glucose [Mass/Vol] 84 mg/dL Normal 55-99 [facility] Comment on above: Result Comment: Repe at Test Performed By: #### 2 [id number] #### [facility] [address] [place] [address] Glucose [Mass/Vol] 88 mg/dL Normal 55-99 [facility] Comment on above: Result Comment: Repe at Test Performed By: #### 2 [id number] #### [facility] [address] [place] [address] Coding Summary.on 05-01-2020 Coding Summary. CODING DATE: 05/01/2020 FINAL [facility] STATUS: Home (Routine DC) PAYOR: Medicare APC DESCRIPTION 5521 Level 1 Imaging without Contrast ADMIT DX: REASON FOR VISIT DX: Z01.818 Encounter for other preprocedural examination FINAL DX: PRINCIPAL: Z01.818 Encounter for other preprocedural examination SECONDARY: S83.242A Other tear of medial meniscus, current injury, left knee, initial encounter M25.462 Effusion, left knee S80.02XA Contusion of left knee, initial encounter Z11.59 Encounter for screening for other viral diseases PYMT PROC APC STAT DESCRIPTION DOCTOR NAME DATE NOTE: The code number assigned matches the documented diagnosis and / or procedure in the patient's chart. However, the narrative phrase printed from the coding software may appear abbreviated, or result in slightly different terminology. Coded By: Gabriela Houston CphT Date Saved: 05/01/2020 08:36 am Normal [facility] Coding Summary. CODING DATE: 04/25/2020 FINAL [facility] STATUS: Home (Routine DC) PAYOR: Medicare APC DESCRIPTION 5521 Level 1 Imaging without Contrast ADMIT DX: REASON FOR VISIT DX: Z01.818 Encounter for other preprocedural examination FINAL DX: PRINCIPAL: Z01.818 Encounter for other preprocedural examination SECONDARY: S83.242A Other tear of medial meniscus, current injury, left knee, initial encounter M25.462 Effusion, left knee S80.02XA Contusion of left knee, initial encounter PYMT PROC APC STAT DESCRIPTION DOCTOR NAME DATE NOTE: The code number assigned matches the documented diagnosis and / or procedure in the patient's chart. However, the narrative phrase printed from the coding software may appear abbreviated, or result in slightly different terminology. Coded By: Gabriela Houston CphT Date Saved: 04/25/2020 04:17 pm [facility] Consent for Treatmenton 04-04 Consent for Treatment [id number]:127 [facility] Consent for Treatment [id number]:127 [facility] H&P Updateon 05-01-2020 H&P Update [id number] .00CD:127 [facility] Main OR PACU I Recordon 04-04 Main OR PACU I Record PACU Phase I Docum ent Type FT Summary Primary Physician: David Talamantes DO Finalized Date/Time: 05/01/20 18:04:55 Pt. Name: CLAUDIA ESTRELLA/Sex: 1950 Female Med Rec #: [id number] Physician: David Talamantes DO Financial #: [id number] Pt. Type: A Room/Bed: [place] [address] Admit/Disch: 05/01/20 11:43:14 - Institution: Case Times PACU I FT Pre-Care Text: Identifies barriers to communication and implements measures to provide psychological support Develops individualized plan of care, and ensures continuity of care Maintains patient's dignity and privacy, and maintains patient confidentiality Identifies and reports philosophical, cultural, and spiritual beliefs and values Identifies individual values and wishes concerning care Implements aseptic technique, and administers prescribed antibiotic therapy and immunizing agents as ordered Evaluates postoperative tissue perfusion Implements thermoregulation measures, and monitors body temperature Evaluates postoperative respiratory status Evaluates postoperative cardiac status Evaluates postoperative neurological status Assesses pain control, collaborated in initiating patient-controlled analgesia and implements alternative methods of pain control Verifies allergies, administers prescribed medications and solutions, evaluates response to medications Entry 1 In PACU I 05/01/20 15:06:00 Discharge from PACU 05/01/20 16:13:00 I Outcomes Met? Yes Last Modified By: Ju Bates RN 05/01/20 18:04:37 Post-Care Text: The patient demonstrates knowledge of the expected response to the operative or invasive procedure The patient's care is consistent with the individualized perioperative plan of care The patient's right to privacy is maintained The patient's value system, lifestyle, ethnicity, and culture are considered, respected, and incorporated into the perioperative plan of care The patient participates in decisions affecting his or her perioperative plan of care The patient is free from signs and symptoms of infection The patient has wound/tissue perfusion consistent with or improved from baseline levels established preoperatively The patient is at or returning to normothermia at the conclusion of the immediate postoperative period The patient's respiratory function is consistent with or improved from baseline levels established preoperatively The patient's cardiovascular status is consistent with or improved from baseline levels established preoperatively The patient's cardiovascular status is consistent with or improved from baseline levels established preoperatively The patient demonstrates and/or reports adequate pain control throughout the perioperative period The patient received appropriate medication(s), safely administered during the perioperative period Acuity Level PACU I FT Entry 1 Start Time 05/01/20 15:06:00 Stop Time 05/01/20 16:13:00 Acuity Level Acuity Level I Last Modified By: Ju Bates RN 05/01/20 18:04:53 Finalized By: Ju Bates RN Document Signatures Signed By: Ju Bates RN 05/01/20 18:04 [facility] Main OR PACU II Recordon Main OR PACU II Record PACU Phase II Document Type FT Summary Primary Physician: David Talamantes DO Finalized Date/Time: 05/01/20 20:09:08 Pt. Name: CLAUDIA ESTRELLA /Sex: 1950 Female Med Rec #: [id number] Physician: David Talamantes DO Financial #: [id number] Pt. Type: O Room/Bed: N306/01 Admit/Disch: 05/01/20 11:43:14 - Institution: Case Times PACU II FT Pre-Care Text: Identifies barriers to communication and implements measures to provide psychological support and determines knowledge level Develops individualized plan of care, and ensures continuity of care Maintains patient's dignity and privacy, and maintains patient confidentiality Identifies and reports philosophical, cultural, and spiritual beliefs and values Identifies individual values and wishes concerning care administers prescribed antibiotic therapy and immunizing agents as ordered, Evaluates postoperative tissue perfusion Implements thermoregulation measures, and monitors body temperature Evaluates postoperative respiratory status Evaluates postoperative cardiac status Evaluates postoperative neurological status Assesses pain control, collaborated in initiating patient-controlled analgesia and implements alternative methods of pain control Verifies allergies, administers prescribed medications and solutions, evaluates response to medications Entry 1 In PACU II 05/01/20 16:20:00 Discharge from PACU 05/01/20 17:55:00 II Last Modified By: Yessy Curran RN 05/01/20 20:09:06 Post-Care Text: The patient demonstrates knowledge of the expected response to the operative or invasive procedure The patient's care is consistent with the individualized perioperative plan of care The patient's right to privacy is maintained The patient's value system, lifestyle, ethnicity, and culture are considered, respected, and incorporated into the perioperative plan of care The patient participates in decisions affecting his or her perioperative plan of care. The patient is free from signs and symptoms of infection The patient has wound/tissue perfusion consistent with or improved from baseline levels established preoperatively The patient is at or returning to normothermia at the conclusion of the immediate postoperative period The patient's respiratory function is consistent with or improved from baseline levels established preoperatively The patient's cardiovascular status is consistent with or improved from baseline levels established preoperatively The patient's neurological status is consistent with or improved from baseline levels established preoperatively The patient demonstrates and/or reports adequate pain control throughout the perioperative period The patient received appropriate medication(s), safely administered during the perioperative period Finalized By: Yessy Curran RN Document Signatures Signed By: Yessy Curran RN 05/01/20 20:09 Normal [facility] Main OR Preoperative Recordo n 05-01-2020 Main OR Preoperative Record PreOp Document Type FT Summary Primary Physician: David Talamantes DO Finalized Date/Time: 05/01/20 14:45:06 Pt. Name: CLAUDIA ESTRELLA D.O.B./Sex: 1950 Female Med Rec #: [id number] Physician: David Talamantes DO Financial #: [id number] Pt. Type: A Room/Bed: [place] [address] Admit/Disch: 05/01/20 11:43:14 - Institution: Case Times PreOp FT Pre-Care Text: Verifies consent for planned procedure, identifies individual values and wishes concerning care, includes family members in perioperative teaching Entry 1 Patient Times. In Pre Surgery 05/01/20 12:00:00 Out Pre Surgery 05/01/20 14:24:00 Outcomes Met? Yes Last Modified By: Viky Hernández RN 05/01/20 14:45:02 Post-Care Text: The patient participates in decisions affecting his or her perioperative plan of care Finalized By: Viky Hernández RN Document Signatures Signed By: Viky Hernández RN 05/01/20 14:45 Normal [facility] Monitor Recordon 05-01-2020 Monitor Record [id number]# 1.00CD:127 Normal [facility] Monitor Record [id number]# 1.00CD:127 Normal [facility] Outside Radiologyon 05-01-20 20 Outside Radiology [id number]#1 .00CD:127 [facility] Outside Recordson 05-01-2020 Outside Records [id number]#1 .00CD:127 Normal [facility] Progress Note-Nurseon 2019 Progress Note-Nurse At 1653--Gisela wu stated she needed a nurse in bay 12 stat. This nurse arrived to room. Patient stated she has CP 04/11 midsternal, heaviness. Jhoana RN at bedside as well. Vitals obtained. Dr. Aldridge paged stat. 165--1 dose 0.4 mg Nitro given sublingual. Bp 130/73 95% 2l NC 1657--Patient states CP is down 3/10, heaviness. Patient vomited 50 ml of bile. 1657--114/68 70 97% NC 2L Patient reports 0/10 pain. 170--0/10 pain. EKG obtained. 1704--Dr. Aldridge at bedside, verbal order given to cycle troponin levels and then he will talk to the hospitalist about admission. Dr. Aldridge explained plan of care to patient and daughter. 1709--Dr. Barahona at bedside. 1714--Patient vomited 100 ml of bile. 1748--Report called to Ross WU. Nurse updated on discharge instructions with patient's knee (dressing comes off in 2 days). Informed Ross RN that Dr. Talamantes requests patients to take 325 mg of aspirin at home to prevent blood clots--Ross RN will discuss with Dr. Barahona. Patient is allowed to bear weight as tolerated with crutches. 175--Patient and daughter with belongings taken up to 306. 180--Outpatient discharge paperwork reviewed with patient and daughter at this time--noted as this could change d/t plan of care on the floor. Paperwork, follow up appointment card, pictures and printed script given to daughter at bedside. 1829--Attempted to call Dr. Talamantes--call went to voicemail. 1834--This nurse spoke with Dr. Carter (transaction coordinator physician), informed Dr. Carter reason for admission and patient's room number. Dr. Aldridge at bedside at 170--Physician looked at patient EKG strip that was printed. Normal [facility] Progress Note-Nurse 1528: pt. medicated with 0.4mg Dilaudid per PACU orders at this time for L knee pain. 1532: 2nd dose of Dilaudid administered at this time per orders. 1535: pt. rubbing chest and c/o mid-sternal CP, denies radiating pain at this time and c/o mild SOB. placed on 2L NC at this time, Dr. Aldridge paged into room 4 and aware. orders to monitor for 15 minutes and if no change obtain a 12 lead ECG. 1543- ECG ordered at this time d/t no change in pts. CP. 1553- ECG RSR, Dr. Aldridge updated at this time. pt. c/o mild mid sternal chest pressure with SOB. 1602: 0.4mg SL Nitro given at this time per orders from Dr. Aldridge. 1610: pt. states chest pressure is gone at this time but still c/o mild SOB. Dr. Aldridge updated at this time, per orders okay for pt. to move onto PACU phase 2 at this time. 1613: PACU out time. 1615: bedside report given to BRYCE Krishnamurthy. pts. dtr. also at bedside and updated. Normal [facility] Troponin 0 Hr.on 05-01-2020 Troponin I.cardiac [Mass/Vol] 4.10 pg/mL Low 10.10-27.10 [facility] Comment on above: Result Comment: The 95% CI (Confidence Interval) PPV (Positive Predictive Value) for myocardial infarction in females is 38 pg/mL, in males 51 pg/mL. The results should be used in conjunction with clinical conditions of myocardial infarction. (Access High Sensitivity Troponin I Instructions For Use, [employer], January 2018) Performed By: #### 2 [id number] #### [facility] [address] [place] [address] eGFRon 05-01-2020 GFR/1.73 sq M.predicted among blacks MDRD (S/P/Bld) [Vol rate/Area] 39 mL/min/1.73 m2 Low >=59 [facility] Comment on above: Order Comment: Order added by Discern Expert. Result Comment: eGFR is race adjusted. AA=. Performed By: #### 2 [id number], [id number], [id number], [id number] #### [facility] [address] [place] [address] GFR/1.73 sq M.predicted among non-blacks MDRD (S/P/Bld) [Vol rate/Area] 32 mL/min/1.73 m2 Low >=59 [facility] Comment on above: Order Comment: Order added by Discern Expert. Result Comment: Home Decorator jayden kidney disease could be indicated at eGFR's of less than 60 mL/min/1.73m2. Kidney failure is indicated at less than 15 mL/min/1.73m2. Performed By: #### 2 [id number], [id number], [id number], [id number] #### [facility] [address] [place] [address] Coding Summary.on 04-28-2020 Coding Summary. CODING DATE: 04/28/2020 FINAL [facility] STATUS: Home (Routine DC) PAYOR: Medicare ADMIT DX: REASON FOR VISIT DX: Z01.812 Encounter for preprocedural laboratory examination FINAL DX: PRINCIPAL: Z01.812 Encounter for preprocedural laboratory examination SECONDARY: Z11.59 Encounter for screening for other viral diseases S83.242A Other tear of medial meniscus, current injury, left knee, initial encounter M25.462 Effusion, left knee S80.02XA Contusion of left knee, initial encounter PYMT PROC APC STAT DESCRIPTION DOCTOR NAME DATE NOTE: The code number assigned matches the documented diagnosis and / or procedure in the patient's chart. However, the narrative phrase printed from the coding software may appear abbreviated, or result in slightly different terminology. Coded By: Gabriela Houston CphT Date Saved: 04/28/2020 09:19 am Normal [facility] Outpatient Surgery Discharge Instructionon 04-28-2020 Outpatient Surgery Discharge Instruction [address] [address] Patient Discharge Instructions PERSON INFORMATION Name: CLAUDIA ESTRELLA Date of : 1950 Current Date: 04/28/2020 18:08:04 PHYSICIANS Admitting Physician: David Talamantes DO Discharge Diagnosis: Acute medial meniscus tear of left knee; Localized osteoarthritis of left knee SAMEERCLAUDIA has been given the following list of follow-up instructions, prescriptions, and patient education materials: PATIENT FOLLOW-UP INFORMATION Diet: Regular, Drink liquids and eat a light meal Discharge Activity: Ambulate as tolerated, Arrange for a responsible adult supervision for 24 hours, Expect mild pain, Expect minimal amount of drainage and/or bleeding, Do not lift more than 5 lbs Discharge Restrictions: No driving for 24 hrs, Do not operate machinery or tools, Do not make important decisions for 24 hours, Do not drink alcoholic beverages for 24 hours Call Your Doctor For: Persistent or heavy bleeding, Temperature above 101.5 degrees, Redness, swelling, or pus at operative site, Severe pain at the operative site, Persistent vomiting Wound Care Instructions: Keep incision dry, Remove dressing as instructed Remove Your Dressing In 2 Days IF UNABLE TO CONTACT YOUR PHYSICIAN AND YOU FEEL IT IS AN EMERGENCY, GO TO THE NEAREST EMERGENCY ROOM OR CALL 911 ISAMEER SHARON E, have received the attached patient education materials/instruction s and have verbalized understanding: May we do a follow up call? Yes No I was present when discharge instructions were given Patient Signature Date Clinican/Nurse Signature Date Follow up: With: Address: When: David Talamantes [address] [place], [place] [id number] [facility] (1) Comments: Keep scheduled appointment Type Location Start [facility] Surgery [facility] 05/01/2020 2:15 PM 05/01/2020 2:55 PM Confirmed Pharmacy Information: Thank you for choosing [facility] HERE ARE THE MEDICATION CHANGES THAT OCCURRED DURING YOUR HOSPITAL STAY Medications to Continue Taking That Have Changed Other Medications START: cycloSPORINE ophthalmic (Restasis 0.05% ophthalmic emulsion) 1 Drops Both eyes 2 times a day. START: insulin glargine (Basaglar KwikPen) 15 Units Subcutaneous 3 times a day. Medications to Continue with No Changes Other Medications amlodipine (amLODIPine 10 mg Tab) 1 Tablets By Mouth every day. aspirin (aspirin 81 mg oral tablet) 1 Tablets By Mouth every day. hydrochlorothiazide-l isinopril (hydrochlorothiazide- lisinopril 12.5 mg-20 mg Tab) 1 Tablets By Mouth every day. metoprolol (metoprolol 25 mg ER Tab) 1.5 tab Oral Daily. PATIENT EDUCATION INFORMATION Instructions: [place], [place] [facility] DISCHARGE INSTRUCTIONS: KNEE ARTHROSCOPY Diet Begin with a liquid diet and advance to your normal diet as tolerated. Activity You may gradually increase your activity as tolerated. Until your first post-operative visit elevate your knee higher than your heart, whenever you are sitting or lying down. Knee swelling will gradually decrease after surgery. Increased swelling is usually a sign of over-activity and should be a signal for you to be less active and apply ice as needed. Your exercise program is the caceres to successful rehabilitation of your knee. Do the exercises daily as instructed. You will receive further exercises at your next visit as needed. The possible need for Physical Therapy will then be discussed. You may bear weight on your operative leg, use your crutches or walker for walking until you can lift 5 pounds with a straight leg raise on the affected side. This is important for protection of your knee after surgery. Although you will find that you can walk without crutches or walker, it is not healthy for you until you regain adequate muscle strength. Use your crutches or walker until your limp is gone. Aspirin 325mg EC oral once a day for 3 weeks for blood clot prevention. You are encouraged to bend your knee as this is comfortably tolerated. Do not forcefully bend until you have permission by your surgeon. Driving is legal, but if you are involved in an accident, you must be able to prove that you maintained full control of your vehicle. For this reason, it is advised that you do not drive until your strength returns, generally in 1-2 weeks. Similarly, all sports activities are discouraged, at least until your first post-operative visit at which time we will discuss how and when to resume sports. Increased Pain Usually this is the result of (more content not included)... Normal [facility] Consent for Procedure/Surger yon 04-27-2020 Consent for Procedure/Surgery [id number]# 1.00CD:127 Normal [facility] Outside Recordson 04-27-2020 Outside Records [id number]# 1.00CD:127 Normal [facility] Priority Order-Trina 2019 Priority Order-STAT Comment Invalid Interpretation Code [facility] Comment on above: Result Comment: Rece ived Performed at: [facility] [address] [facility] [place] [id number] MD Bladimir Briones Performed By: #### 2 [id number] #### [facility] [address] [place] [address] SARS-CoV-2, NAAon 04-25-2020 SARS-CoV-2 (COVID-19) RNA JAYASHREE+probe Ql (Resp) Not detected Invalid Interpretation Code Not Detected [facility] Comment on above: Result Comment: This nucleic acid amplification test was developed and its performance characteristics determined by [employer]. Nucleic acid amplification tests include PCR and TMA. This test has not been FDA cleared or approved. This test has been authorized by FDA under an Emergency Use Authorization (EUA). This test is only authorized for the duration of time the declaration that circumstances exist justifying the authorization of the emergency use of in vitro diagnostic tests for detection of SARS-CoV-2 virus and/or diagnosis of COVID-19 infection under section 564(b)(1) of the Act, 21 U.S.C. 360bbb-3(b) (1), unless the authorization is terminated or revoked sooner. When diagnostic testing is negative, the possibility of a false negative result should be considered in the context of a patient's recent exposures and the presence of clinical signs and symptoms consistent with COVID-19. An individual without symptoms of COVID-19 and who is not shedding SARS-CoV-2 virus would expect to have a negative (not detected) result in this assay. Performed at: [facility] [address] [facility] [place] [id number] MD Bladimir Briones Performed By: #### 2 [id number] #### [facility] [address] [place] [address] XR Chest 2 Viewson 0 XR Chest 2 Views Exam Date/Time: 04/24/2020 09:34 EDT Reason for Exam: PST Report IMPRESSION: INCREASED INTERSTITIAL LUNG MARKINGS BILATERALLY, MORE PROMINENT AT THE LUNG BASES AND IN THE UPPER LUNG ZONES. REPORTEDLY THE PATIENT IS A NONSMOKER. THE APPEARANCE OF THE LUNGS IS NONSPECIFIC, BUT CONSIDERATIONS INCLUDE INTERSTITIAL PNEUMONITIS OR INTERSTITIAL FIBROSIS OR INTERSTITIAL EDEMA. FURTHER CLINICAL EVALUATION IS RECOMMENDED. CLINICAL HISTORY: PST. COMMENT: The heart is normal in size. The mediastinum is unremarkable. There are accentuated indistinct lung markings bilaterally, more prominent in the lower lung zones than in the upper lung zones, and with increased peripheral interstitial septal lines at the bases. No consolidated airspace opacification nor pleural effusion is evident. FINAL REPORT Dictated: 04/25/2020 9:27 am Matias George M.D. Signed (Electronic Signature): 04/25/2020 9:27 am Signed by: Matias George M.D. Transcribed by: LUDIN Technologist: RRB Normal [facility] BUNon 04-24-2020 Urea nitrogen [Mass/Vol] 36 mg/dL High 5-21 [facility] Comment on above: Performed By: #### 1 [id number], 0542839, 8733598, 7216180, 5909396, 7804789 ####[facility] [address] [place] [address] CBC w/Indiceson 04-24-2020 Erythrocyte distribution width (RBC) [Ratio] 13.0 % Normal 10.9-14.2 [facility] Comment on above: Performed By: #### 1 8835235, 3537168, 3674365, 5061807, 6836004, 0839271 ####[facility] [address] [place] [address] Hematocrit (Bld) [Volume fraction] 34.1 % Normal 34.0-46.0 [facility] Comment on above: Performed By: #### 1 3018775, 8444404, 0800379, 0980157, 2981131, 4826579 ####[address] [place] [address] Hemoglobin (Bld) [Mass/Vol] 11.6 g/dL Low 12.0-16.0 [facility] Comment on above: Performed By: #### 1 0144645, 1352665, 5771230, 1903286, 9868209, 5252865 ####[address] [place] [address] MCH (RBC) [Entitic mass] 29.5 pg Normal 27.0-34.0 [facility] Comment on above: Performed By: #### 1 0780763, 7451090, 5382793, 6694499, 0327380, 4444430 ####[place] [id number] MCHC (RBC) [Mass/Vol] 34.1 g/dL Normal 31.4-36.0 [facility] [place] [facility] Comment on above: Performed By: #### 1 9144739, 2838557, 3752529, 5581912, 3160618, 6240344 ####[address] [address] MCV (RBC) [Entitic vol] 86.5 fL Normal 80.0-100.0 [facility] Comment on above: Performed By: #### 1 7311847, 9094039, 9432493, 2712028, 1324825, 7842184 ####[address] [place] [address] Platelet mean volume (Bld) [Entitic vol] 9.4 fL Normal 6.4-10.8 [facility] Comment on above: Performed By: #### 1 5200772, 6157578, 8688334, 3194230, 0093047, 1649544 ####[address] [place] [address] Platelets (Bld) [#/Vol] 246.0 E9/L Normal 150.0-500.0 [facility] Comment on above: Performed By: #### 1 4692296, 3262855, 4938773, 2088712, 6276568, 6351016 ####[facility] [address] [place] [address] RBC (Bld) [#/Vol] 3.9 E12/L Low 4.3-5.9 [facility] Comment on above: Performed By: #### 1 3549679, 1356709, 3532910, 5196960, 2577836, 8439966 ####[facility] [address] [place] [address] WBC corrected for nucl RBC Auto (Bld) [#/Vol] 10.0 E9/L Normal 4.0-11.0 [facility] Comment on above: Performed By: #### 1 9361883, 7031178, 7208332, 7930451, 6837972, 0465180 ####[facility] [address] [place] [address] Consent for Treatmenton 04-03 Consent for Treatment [id number] .00CD:127 Normal [facility] Creatinineon 04-24-2020 Creatinine [Mass/Vol] 1.6 mg/dL High 0.5-1.3 [facility] [place] [facility] Comment on above: Performed By: #### 1 [id number], 6332403, 1408739, 8529040, 3552467, 4428177 ####[facility] [address] [place] [address] Glu Fastingon 04-24-2020 Glucose [Mass/Vol] 81 mg/dL Normal 55-99 [facility] Comment on above: Performed By: #### 1 1588177, 9236839, 3961626, 2587721, 8034025, 7081727 ####[facility] [address] [place] [address] Lyteson 04-24-2020 Anion gap [Moles/Vol] 13 mmol/L Normal 6-16 [facility] [place] [facility] Comment on above: Performed By: #### 1 5899455, 2939527, 3023551, 1177252, 7358583, 8300713 ####[facility] [address] [place] [address] Chloride [Moles/Vol] 103 mmol/L Normal 101-111 [facility] Comment on above: Performed By: #### 1 8013436, 2877980, 4677237, 4140552, 8889523, 1101902 ####[facility] [address] [place] [address] CO2 [Moles/Vol] 26 mmol/L Normal 21-31 [facility] Comment on above: Performed By: #### 1 0708808, 5647469, 5358537, 0290402, 3896034, 2673241 ####[facility] [address] [place] [address] Potassium [Moles/Vol] 3.9 mmol/L Normal 3.5-5.3 [facility] Comment on above: Performed By: #### 1 7895871, 4355573, 5507245, 2471275, 3350704, 2909628 ####[facility] [address] [place] [address] Sodium [Moles/Vol] 138 mmol/L Normal 135-145 [facility] Comment on above: Performed By: #### 1 [id number] ####[facility] [address] [place] [address] Physician Orderon 04-24-2020 Physician Order [id number]# 1.00CD:127 Normal [facility] eGFRon 04-24-2020 GFR/1.73 sq M.predicted among blacks MDRD (S/P/Bld) [Vol rate/Area] 39 mL/min/1.73 m2 Low >=59 [facility] Comment on above: Order Comment: Order added by Discern Expert. Result Comment: eGFR is race adjusted. AA=. Performed By: #### 1 [id number] ####[facility] [address] [place] [address] GFR/1.73 sq M.predicted among non-blacks MDRD (S/P/Bld) [Vol rate/Area] 32 mL/min/1.73 m2 Low >=59 [facility] Comment on above: Order Comment: Order added by Discern Expert. Result Comment: Home Decorator jayden kidney disease could be indicated at eGFR's of less than 60 mL/min/1.73m2. Kidney failure is indicated at less than 15 mL/min/1.73m2. Performed By: #### 1 [id number] ####[facility] [address] [place] [address] Physician Orderon 04-13-2020 Physician Order [id number]# 1.00CD:127 Normal [facility] Physician Orderon 04-10-2020 Physician Order [id number]# 1.00CD:127 Normal [facility] Vital Signs Date Time Vital Sign Value Performing Clinician Facility 05-30-2023 15:40-0500 Body height 147.32 cm Geneva Mary Grace Other [facility] Other 05-30-2023 15:40-0500 Body mass index (BMI) [Ratio] 26.92 kg/m2 Geneva Mary Grace Other [facility] Other 05-30-2023 15:40-0500 Body temperature 97 [degF] Geneva Mary Grace Other [facility] Other 05-30-2023 15:40-0500 Body weight 58.42 kg Geneva Mary Grace Other [facility] Other 05-30-2023 15:40-0500 Diastolic blood pressure 71 mm[Hg] Geneva Mary Grace Other [facility] Other 05-30-2023 15:40-0500 Respiratory rate 18 /min Geneva Mary Grace Other [facility] Other 05-30-2023 15:40-0500 SaO2% (BldA) [Mass fraction] 97 % Geneva Mary Grace Other [facility] Other 05-30-2023 15:40-0500 Systolic blood pressure 153 mm[Hg] Geneva Mary Grace Other [facility] Other 01-30-2023 15:40-0400 Body height 147.32 cm Geneva Mary Grace Other [facility] Other 01-30-2023 15:40-0400 Body mass index (BMI) [Ratio] 26.83 kg/m2 Geneva Mary Grace Other [facility] Other 01-30-2023 15:40-0400 Body temperature 97.7 [degF] Geneva Mary Grace Other [facility] Other 01-30-2023 15:40-0400 Body weight 58.24 kg Geneva Mary Grace Other [facility] Other 01-30-2023 15:40-0400 Diastolic blood pressure 67 mm[Hg] Geneva Mary Grace Other [facility] Other 01-30-2023 15:40-0400 Respiratory rate 18 /min Geneva Mary Grace Other [facility] Other 01-30-2023 15:40-0400 SaO2% (BldA) [Mass fraction] 98 % Geneva Mary Grace Other [facility] Other 01-30-2023 15:40-0400 Systolic blood pressure 136 mm[Hg] Geneva Mary Grace Other [facility] Other 08-30-2022 14:40-0500 Body height 147.32 cm Geneva Mary Grace Other [facility] Other 08-30-2022 14:40-0500 Body mass index (BMI) [Ratio] 26.29 kg/m2 Geneva Mary Grace Other [facility] Other 08-30-2022 14:40-0500 Body temperature 98.6 [degF] Geneva Mary Grace Other [facility] Other 08-30-2022 14:40-0500 Body weight 57.06 kg Geneva Mary Grace Other [facility] Other 08-30-2022 14:40-0500 Diastolic blood pressure 72 mm[Hg] Geneva Mary Grace Other [facility] Other 08-30-2022 14:40-0500 Respiratory rate 18 /min Geneva Mary Grace Other [facility] Other 08-30-2022 14:40-0500 SaO2% (BldA) [Mass fraction] 96 % Geneva Mary Grace Other [facility] Other 08-30-2022 14:40-0500 Systolic blood pressure 139 mm[Hg] Geneva Mary Grace Other [facility] Other 05-30-2022 11:40-0500 Body height 147.32 cm Geneva Mary Grace Other [facility] Other 05-30-2022 11:40-0500 Body mass index (BMI) [Ratio] 27.25 kg/m2 Geneva Mary Grace Other [facility] Other 05-30-2022 11:40-0500 Body temperature 96.2 [degF] Geneva Mary Grace Other [facility] Other 05-30-2022 11:40-0500 Body weight 59.15 kg Geneva Mary Grace Other [facility] Other 05-30-2022 11:40-0500 Diastolic blood pressure 71 mm[Hg] Geneva Mary Grace Other [facility] Other 05-30-2022 11:40-0500 SaO2% (BldA) [Mass fraction] 97 % Geneav Mary Grace Other [facility] Other 05-30-2022 11:40-0500 Systolic blood pressure 151 mm[Hg] Geneva Mary Grace Other [facility] Other 01-27-2022 12:20-0400 Body height 147.32 cm Geneva Mary Grace Other [facility] Other 01-27-2022 12:20-0400 Body mass index (BMI) [Ratio] 26.83 kg/m2 Geneva Mary Grace Other [facility] Other 01-27-2022 12:20-0400 Body temperature 98 [degF] Geneva Mary Grace Other [facility] Other 01-27-2022 12:20-0400 Body weight 58.24 kg Geneva Mary Grace Other [facility] Other 01-27-2022 12:20-0400 Diastolic blood pressure 69 mm[Hg] Geneva Mary Grace Other [facility] Other 01-27-2022 12:20-0400 Respiratory rate 18 /min Geneva Mary Grace Other [facility] Other 01-27-2022 12:20-0400 SaO2% (BldA) [Mass fraction] 96 % Geneva Mary Grace Other [facility] Other 01-27-2022 12:20-0400 Systolic blood pressure 136 mm[Hg] Geneva Mary Grace Other [facility] Other 09-20-2021 16:00-0400 Body height 147.32 cm Geneva Mary Grace Other [facility] Other 09-20-2021 16:00-0400 Body mass index (BMI) [Ratio] 27.42 kg/m2 Geneva Mary Grace Other [facility] Other 09-20-2021 16:00-0400 Body temperature 97.6 [degF] Geneva Mary Grace Other [facility] Other 09-20-2021 16:00-0400 Body weight 59.51 kg Geneva Mary Grace Other [facility] Other 09-20-2021 16:00-0400 Diastolic blood pressure 76 mm[Hg] Geneva Mary Grace Other [facility] Other 09-20-2021 16:00-0400 Respiratory rate 18 /min Geneva Mary Grace Other [facility] Other 09-20-2021 16:00-0400 SaO2% (BldA) [Mass fraction] 97 % Geneva Mary Grace Other [facility] Other 09-20-2021 16:00-0400 Systolic blood pressure 169 mm[Hg] Geneva Mary Grace Other [facility] Other 05-18-2021 15:40-0500 Body height 147.32 cm Geneva Mary Grace Other [facility] Other 05-18-2021 15:40-0500 Body mass index (BMI) [Ratio] 26.5 kg/m2 Geneva Mary Grace Other [facility] Other 05-18-2021 15:40-0500 Body temperature 97.2 [degF] Geneva Mary Grace Other [facility] Other 05-18-2021 15:40-0500 Body weight 57.52 kg Geneva Mary Grace Other [facility] Other 05-18-2021 15:40-0500 Diastolic blood pressure 79 mm[Hg] Geneva Mary Grace Other [facility] Other 05-18-2021 15:40-0500 Respiratory rate 18 /min Geneva Mary Grace Other [facility] Other 05-18-2021 15:40-0500 SaO2% (BldA) [Mass fraction] 97 % Geneva Mary Grace Other [facility] Other 05-18-2021 15:40-0500 Systolic blood pressure 137 mm[Hg] Geneva Mary Grace Other [facility] Other Encounters Encounter Date Encounter Type Care Provider Facility Start: 08-04-2023 End: 08-04-2023 ambulatory [facility] Start: 07-11-2023 End: 07-11-2023 ambulatory Geneva Mary Grace Other [facility] Other Start: 07-11-2023 Telephone encounter Geneva Mary Grace [facility] Start: 05-30-2023 End: 05-30-2023 ambulatory Geneva Mary Grace Other [facility] Other Start: 05-30-2023 Office outpatient visit 25 minutes Geneva Mary Grace [facility] Start: 05-23-2023 End: 05-23-2023 ambulatory Geneva Mary Grace Other [facility] Other Start: 05-23-2023 Telephone encounter Geneva Mary Grace [facility] Start: 02-24-2023 End: 02-24-2023 ambulatory CARMINA [facility] Start: 01-30-2023 End: 01-30-2023 ambulatory Geneva Mary Grace Other [facility] Other Start: 01-30-2023 Encounter by jose demetra link Geneva Mary Grace [facility] Start: 01-30-2023 Office outpatient visit 25 minutes Geneva Mary Grace [facility] Start: 10-27-2022 End: 10-27-2022 ambulatory Geneva Mary Grace Other [facility] Other Start: 10-27-2022 Telephone encounter Geneva Mary Grace [facility] Start: 10-26-2022 End: 10-27-[address] JOHN PERDOMO Facility:[facility] Start: 09-12-2022 End: 09-12[facility]: 08-30-2022 End: 08-30-2022 ambulatory Geneva Mary Grace Other [facility] Other Start: 08-30-2022 Office outpatient visit 25 minutes Geneva Mary Grace [facility] Start: 08-24-2022 End: 08-25-[address] JOHN PERDOMO Facility:[facility] Start: 08-23-2022 End: 08-24-2022 ambulatory GENEVA MARY GRACE Facility:[facility] Start: 06-13-2022 End: 06-14-[address] KARTHIK FISH Facility:[facility] Start: 06-10-2022 End: 06-11-[address] KARTHIK FISH Facility:[facility] Start: 06-02-2022 End: 06-03-[address] KARTHIK FISH Facility:[facility] Start: 06-01-2022 End: 06-02-[address] JOHN PERDOMO Facility:[facility] Start: 05-30-2022 End: 05-30-2022 ambulatory Geneva Mary Grace Other [facility] Other Start: 05-30-2022 Office outpatient visit 25 minutes Geneva Mary Grace [facility] Start: 05-27-2022 End: 05-28-[address] JOHN PERDOMO Facility:[facility] Start: 05-23-2022 Telephone encounter Geneva Mary Grace [facility] Start: 05-23-2022 End: 05-24-[address] JOHN PERDOMO [facility] Other Start: 05-14-2022 End: 05-15-2022 ambulatory CARMINA ROSALES Facility:[facility] Start: 05-12-2022 End: 05-12-2022 ambulatory Geneva Mary Grace Other [facility] Other Start: 05-12-2022 Telephone encounter Geneva Mary Grace [facility] Start: 05-11-2022 End: 05-12-2022 ambulatory CARMINA ROSALES Facility:[facility] Start: 03-17-2022 End: 03-18-[address] JOHN PERDOMO Facility:[facility] Start: 01-27-2022 End: 01-27-2022 ambulatory Geneva Mary Grcae Other [facility] Other Start: 01-27-2022 Office outpatient visit 25 minutes Geneva Mary Grace [facility] Start: 01-21-2022 End: 01-22-[address] JOHN PERDOMO Facility:[facility] Start: 01-17-2022 End: 01-18-[address] JOHN PERDOMO Facility:[facility] Start: 01-13-2022 End: 01-13-2022 ambulatory Geneva Mary Grace Other [facility] Other Start: 01-13-2022 Telephone encounter Geneva Mary Grace [facility] Start: 12-16-2021 Telephone encounter Geneva Mary Grace [facility] Start: 12-16-2021 End: 12-17-[address] JOHN PERDOMO [facility] Other Start: 12-09-2021 End: 12-10-2021 ambulatory JOHN PERDOMO Facility:[facility] Start: 12-08-2021 End: 12-08-2021 ambulatory Geneva Mary Grace Other [facility] Other Start: 12-08-2021 Telephone encounter Geneva Mary Grace [facility] Start: 12-07-2021 End: 12-07-[address] JOHN PERDOMO Facility:[facility] Start: 12-06-2021 End: 12-07-[address] JHON PERDOMO Facility:[facility] Start: 12-01-2021 End: 12-02-[address] JOHN PERDOMO Facility:[facility] Start: 11-19-2021 End: 11-20-[address] JOHN PERDOMO Facility:[facility] Start: 11-01-2021 End: 11-01-2021 ambulatory Gneeva Mary Grace Other [facility] Other Start: 11-01-2021 Encounter by Clone r link Geneva Mary Grace [facility] Start: 10-28-2021 End: 10-28-2021 ambulatory Gneeva Mary Grace Other [facility] Other Start: 10-28-2021 Telephone encounter Geneva Mary Grace [facility] Start: 10-13-2021 End: 10-13-2021 ambulatory Geneva Mary Grace Other [facility] Other Start: 10-13-2021 Encounter by Clone r link Geneva Mary Grace [facility] Start: 10-06-2021 End: 10-06-2021 ambulatory Geneva Mary Grace Other [facility] Other Start: 10-06-2021 Telephone encounter Geneva Mary Grace [facility] Start: 09-21-2021 End: 09-21-2021 ambulatory Geneva Mary Grace Other [facility] Other Start: 09-21-2021 Telephone encounter Geneva Mary Grace [facility] Start: 09-20-2021 End: 09-20-2021 ambulatory Geneva Mary Grace Other [facility] Other Start: 09-20-2021 Office outpatient visit 25 minutes Geneva Mary Grace [facility] Start: 08-01-2021 End: 08-01-2021 ambulatory Geneva Mary Grace Other [facility] Other Start: 08-01-2021 Encounter by compute r link Geneva Mary Grace [facility] Start: 07-18-2021 End: 07-18-2021 ambulatory Geneva Mary Grace Other [facility] Other Start: 07-18-2021 Encounter by Clone r link Geneva Mary Grace [facility] Start: 05-18-2021 End: 05-18-2021 ambulatory Geneva Mary Grace Other [facility] Other Start: 05-18-2021 Office outpatient visit 25 minutes Geneva Mary Grace [facility] Immunizations Immunization Date Immunization Notes Care Provider Fa chynaty NEGATED: Highlighted row has not occurred!06-05-2019 influenza, high dose seasonal, preservative-free Patient Objection Geneva Mary Grace Other [facility] Other Payers Date Payer Category Payer Medicare [id number] 1958 Unknown [id number] 1950 Unknown [id number] 2.16.8 [id number] 1950 Unknown [id number] 2.16.84 0.1.681999.3.579.2.593 1950 Unknown [id number] 2.16.84 0.1.568709.3.579.2.593 1950 Unknown [id number] 2.16.84 0.1.444443.3.579.2.593 1951 Unknown [id number] 2.16.84 0.1.721947.3.579.2.593 1951 Unknown [id number] 2.16.84 0.1.692897.3.579.2.593 1950 Unknown [id number] 2.16.84 0.1.637357.3.579.2.593 1950 Unknown [id number] 2.16.84 0.1.428310.3.579.2.593 1951 Unknown [id number] 2.16.84 0.1.285630.3.579.2.593 1951 Unknown [id number] 2.16.84 0.1.734933.3.579.2.593 1951 Unknown [id number] 2.16.84 0.1.671411.3.579.2.593 1951 Unknown [id number] 2.16.84 0.1.057213.3.579.2.593 1950 Unknown [id number] 2.16.84 0.1.818582.3.579.2.593 1951 Unknown [id number] 2.16.84 0.1.806520.3.579.2.593 1951 Unknown [id number] 2.16.84 0.1.854347.3.579.2.593 1951 Unknown [id number] 2.16.84 0.1.081620.3.579.2.593 1951 Unknown [id number] 2.16.84 0.1.416710.3.579.2.593 1951 Unknown [id number] 2.16.84 0.1.769323.3.579.2.593 1951 Unknown [id number] 2.16.84 0.1.042792.3.579.2.593 1951 Unknown [id number] 2.16.84 0.1.084762.3.579.2.593 1950 Unknown [id number] 2.16.84 0.1.831251.3.579.2.593 Social History Date Type Detail Facility Unknown if ever smoked [facility] Other Sex Assigned At Sex Assigned At Bir th [facility] Other Clinical Notes 04-27-2020 to 08-04-2023 Note Date & Type Note Facility 08-04-2023 Note [facility] Subjective Claudia Estrella is a 73 y.o. year old female patient being seen for follow up orthostasis per Kristie Rosales CNP. She started her on midodrine 5mg prn. She has been taking it 3 times a day and lightheadedness is much improved. No longer feels near syncope. Has occasional chest pain and has taken nitroglycerin a few times since last visit in Jan 2023. SOB is intermittent, but she doesn't seem to associate it with the chest pain. Last labs were done in May 2023. Patient Active Problem List Diagnosis Coronary arteriosclerosis Heart murmur Hypertensive disorder Kidney disease Recurrent herpes simplex Stage 4 chronic kidney disease (CMS/HCC) Type 2 diabetes mellitus (CMS/HCC) Chronic diastolic heart failure (CMS/HCC) Benign essential hypertension Glaucoma Goiter Orthostatic hypotension Family History Problem Relation Name Age of Onset Heart attack Mother Heart failure Mother Heart attack Father Social History Tobacco Use Smoking status: Never Smokeless tobacco: Never Substance Use Topics Alcohol use: Not Currently HPI Claudia is seen in follow-up. She is a 73-year-old woman with prior history of hypertension and diabetes. She was previously evaluated in cardiology clinic because of symptoms of angina. Her medications were optimized. She has chronic kidney disease. Despite optimal medical therapy she continues to have symptoms of unstable angina. Cardiac catheterization in July 2020 showed severe three-vessel coronary artery disease. She underwent CABG on 07/13/2020. She developed postoperative atrial fibrillation that converted medically. Due to her chronic kidney disease she has a lot of issues with water retention. Currently she is maintained on bumetanide 3 mg twice daily and metolazone 2.5 mg once weekly. Most recently she has been having orthostatic hypotension and was recommended to take midodrine 5 mg 3 times daily. Symptoms persist despite that. At rest her blood pressure is elevated with a systolic around 150 with a significant drop on standing around 20 mmHg. She is symptomatic with that. Today she has no significant lower extremity edema. She has mild shortness of breath on exertion, NYHA class II. No palpitations. No significant chest pain. Her main issue is the orthostatic hypotension. Review of Systems Cardiovascular: Positive for chest pain (intermittent) and dyspnea on exertion. Gastrointestinal: Positive for bloating. Neurological: Positive for light-headedness. All other systems reviewed and are negative. Objective Visit Vitals BP 126/65 (BP Location: Left arm, Patient Position: Standing) Pulse 72 Ht 1.422 m (4' 8 ) Wt 58.5 kg (129 lb) SpO2 95% BMI 28.92 kg/m??? Smoking Status Never BSA 1.52 m??? Physical Exam Constitutional: Appearance: She is well-developed. She is not ill-appearing. HENT: Head: Normocephalic and atraumatic. Nose: Nose normal. Eyes: General: No scleral icterus. Pupils: Pupils are equal, round, and reactive to light. Neck: Thyroid: No thyromegaly. Vascular: No JVD. Cardiovascular: Rate and Rhythm: Normal rate and regular rhythm. Pulses: Radial pulses are 2+ on the right side and 2+ on the left side. Heart sounds: Normal heart sounds. No murmur heard. No friction rub. No gallop. Pulmonary: Effort: Pulmonary effort is normal. No respiratory distress. Breath sounds: Normal breath sounds. No wheezing or rales. Chest: Chest wall: No tenderness. Abdominal: General: Bowel sounds are normal. There is no distension. Palpations: Abdomen is soft. Tenderness: There is no abdominal tenderness. Musculoskeletal: General: No swelling. Cervical back: Neck supple. Skin: General: Skin is warm and dry. Neurological: General: No focal deficit present. Mental Status: She is alert and oriented to person, place, and time. Psychiatric: Mood and Affect: Mood normal. Behavior: Behavior is cooperative. Judgment: Judgment normal. Allergies Allergies Allergen Reactions Erythromycin Other Erythromycin Base Hydromorphone Penicillins Hives Medications Current Outpatient Medications: allopurinol (Zyloprim) 100 mg tablet, TAKE 1 TABLET BY MOUTH ONCE DAILY FOR 90 DAYS, Disp: , Rfl: amLODIPine (Norvasc) 10 mg tablet, TAKE 1 TABLET BY MOUTH EVERY DAY, Disp: 90 tablet, Rfl: 3 aspirin 81 mg EC tablet, Take 1 tablet every day by oral route., Disp: , Rfl: atorvastatin (Lipitor) 40 mg tablet, TAKE 1 TABLET BY MOUTH EVERYDAY AT BEDTIME, Disp: 90 tablet, Rfl: 3 bumetanide (Bumex) 2 mg tablet, TAKE 1 AND 1/2 TABLETS BY MOUTH TWICE A DAY, Disp: 270 tablet, Rfl: 3 doxazosin (Cardura) 4 mg tablet, TAKE 1 AND 1/2 TABLETS BY MOUTH TWICE DAILY FOR 90 DAYS, Disp: 270 tablet, Rfl: 3 ergocalciferol (Vitamin D-2) 1.25 MG (27978 UT) capsule, Take 1 capsule by mouth 1 (one) time per week., Disp: , Rfl: ferrous sulfate 325 (65 Fe) M (more content not included)... [facility] 07-11-2023 Note Reviewed pt's b/p si tting and standing. Sitting B/P remains elevated and significant hypotension with standing therefore will send script to midodrine 5 mg tid prn for orthostasis, continue all other meds. Continue to monitor b/P and heart rate and call office if no improvement of symptoms. Staff to schedule pt for office visit soon to evaluate symptoms and response. Carmina Rosales NEWSP[employer]ER COLUMNIST Division of Cardiology, [facility]- [phone] Pager- [phone] Email- [email or web address] 05-30-2023 Evaluation note Encounter Date Diagnosis Assessment Notes May, CKD (chronic kidney disease) stage 4, GFR 15-29 ml/min (ICD-10 - N18.4) She has CKD due to DM and HTN with SCr 2-2.2 mg/dl. Her renal US showed left nephrolithiasis and possible Fibroid. I discussed with her the importance of good DM and HTN control to slow down the progression of CKD. 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 Continue Hydralazine. I have advised him to comply with 50 ounces of fluid. Continue current dose of the Bumex and metolazone. I have advised him to monitor blood pressure at home and call office if it stays above 140/90 mmHg May, Diabetes mellitus with chronic kidney disease (ICD-10 - E11.22) Her blood sugars are within acceptable range. Continue to follow with PCP for DM management. She is currently not on TOLU or ARB due to the worsening renal function. I have explained to her due to her advanced CKD she may not benefit SGLT 2 inhibitors inhibitors including Farxiga Jardiance or Invokana. May, Secondary hyperparathyroidism (ICD-10 - N25.81) She had secondary hyperparathyroidism due to the vitamin D deficiency and hyperphosphatemia. I have advised low phosphorus diet. I have advised her to Continue vitamin D every other week. May, Hyperuricemia (ICD-10 - E79.0) She has hyperuricemia due to the advanced CKD. Continue current dose of the allopurinol. May, Microscopic hematuria (ICD-10 - R31.29) She has microscopic hematuria and was seen by Dr. Kwon. She underwent Cystoscopy and reported that it was unremarkable. May, Hypokalemia (ICD-10 - E87.6) She has hypokalemia due to the diuretic induced renal potassium wasting. Continue potassium chloride 40 mEq p.o. 3 times daily. She is allergic to his spironolactone unfortunately and cannot be given. I have advised her to take additional 40 mEq on the days when she takes metolazone. May, Iron deficiency (ICD-10 - E61.1) Hemoglobin is within the acceptable range but has adequate Iron stores. Continue oral iron. [facility] Other [id number] NoteNYHC II Currently euvolemic without exacerbation Continue GDMT- Diuretic therapy- As per nephrology recommendations she takes Bumex 3 mg twice daily and metolazone 2.5 mg as needed Monitor daily weights, I&O, fluid restriction 1.5-2L/day, renal function and electrolytesUnThe [facility]08-[facility]-2023 NoteHypertension is Well-controlled blood pressure 131/71 Continue all medications Follow-up with nephrology as scheduledUnThe [facility] 02-24-2023 NoteCoronary artery disease is stable Continue GDMT- Continue aspirin, Lipitor and metoprolol continue risk factor modifications- heart healthy diet, regular exercise as tolerated and continue all medications.[facility] 02-24-2023 NoteUTP CARDIOLOGY PROGRESS NOTE HPI: Claudia Estrella is a 72 y.o. female here for Routine 6-month follow-up Patient here for 6 mo follow up CAD, chronic diastolic heart failure, hypertension, and CKD. Had labs about 1 month ago. Still gets the chest pain, but says it's better. Gets winded when walking long distances. Doing great. Patient admits typical shortness of breath with exertion but states is no worse than usual. Denies chest pain, orthopnea, palpitations, weight gain, signs of fluid retention. Denies any leg swelling. She has been follow-up with Dr. Garcia for nephrology and overall she has been doing quite well Review of Systems Cardiovascular: Positive for chest pain (continues to improve) and dyspnea on exertion. All other systems reviewed and are negative. Visit Vitals BP 131/71 (BP Location: Left arm, Patient Position: Sitting) Pulse 75 Ht 1.422 m (4' 8 ) Wt 57.2 kg (126 lb) SpO2 96% BMI 28.25 kg/m??? Smoking Status Never BSA 1.5 m??? Allergies Allergen Reactions Erythromycin Other Erythromycin Base Hydromorphone Penicillins Hives Medications: Current Outpatient Medications on File Prior to Visit Medication Sig Dispense Refill allopurinol (Zyloprim) 100 mg tablet TAKE 1 TABLET BY MOUTH ONCE DAILY FOR 90 DAYS amLODIPine (Norvasc) 10 mg tablet TAKE 1 TABLET BY MOUTH EVERY DAY 90 tablet 3 aspirin 81 mg EC tablet Take 1 tablet every day by oral route. atorvastatin (Lipitor) 40 mg tablet TAKE 1 TABLET BY MOUTH EVERYDAY AT BEDTIME 90 tablet 3 bumetanide (Bumex) 2 mg tablet TAKE 1 AND 1/2 TABLETS BY MOUTH TWICE A DAY 270 tablet 3 doxazosin (Cardura) 4 mg tablet TAKE 1 AND 1/2 TABLETS BY MOUTH TWICE DAILY FOR 90 DAYS 270 tablet 3 ergocalciferol (Vitamin D-2) 1.25 MG (96106 UT) capsule Take 1 capsule by mouth 1 (one) time per week. ferrous sulfate 325 (65 Fe) MG tablet TAKE 1 TABLET BY MOUTH EVERY OTHER DAY FOR 90 DAYS hydrALAZINE (Apresoline) 50 mg tablet TAKE 1 TABLET BY MOUTH THREE TIMES A DAY FOR 90 DAYS 270 tablet 3 insulin glargine (Lantus) 100 unit/mL (3 mL) pen Inject under the skin. isosorbide mononitrate ER (Imdur) 30 mg 24 hr tablet Take 1 tablet (30 mg) by mouth in the morning. Do not crush or chew. 30 tablet 11 levothyroxine (Synthroid, Levoxyl) 50 mcg tablet Take 1 tablet by mouth in the morning. metOLazone (Zaroxolyn) 2.5 mg tablet TAKE 1 TABLET BY MOUTH TWICE WEEKLY (Patient taking differently: if needed.) 24 tablet 3 metoprolol tartrate (Lopressor) 50 mg tablet TAKE 1 AND 1/2 TABLETS BY MOUTH TWICE DAILY 270 tablet 3 nitroglycerin (Nitrostat) 0.[address] 1 tablet (0.4 mg) under the tongue every 5 (five) minutes if needed for chest pain. 25 tablet 3 potassium chloride CR (Klor-Con M20) 20 mEq ER tablet Take 40 mEq by mouth in the morning, at noon, and at bedtime. [DISCONTINUED] doxazosin (Cardura) 2 mg tablet 3 mg in the morning and at bedtime. [DISCONTINUED] latanoprost (Xalatan) 0.005 % ophthalmic solution Administer 1 drop into both eyes at bedtime. [DISCONTINUED] Lumigan 0.01 % ophthalmic solution No current facility-administered medications on file prior to visit. Physical Exam: Constitutional: Appearance: Normal appearance. Without apparent distress, chronically ill HENT: Head: Normocephalic and atraumatic. Nose: Nose normal. Mouth/Throat: Mouth: Mucous membranes are moist. Eyes: Extraocular Movements: Extraocular movements intact. Conjunctiva/sclera: Conjunctivae normal. Neck: Vascular: No JVD. Cardiovascular: Rate and Rhythm: Normal rate and regular rhythm. Pulses: Dorsalis pedis pulses are 3 on the right side and 3on the left side. Posterior tibial pulses are 3 on the right side and 3 on the left side. Heart sounds: Normal heart sounds, S1 normal and S2 normal. Pulmonary: Effort: Pulmonary effort is normal. Breath sounds: Normal breath sounds. Abdominal: General: Bowel sounds are normal. Palpations: Abdomen is soft. Musculoskeletal: General: Normal range of motion. Cervical back: Normal range of motion. Right lower leg: No edema. Left lower leg: No edema. Skin: General: Skin is warm and dry with xerosis Capillary Refill: Capillary refill takes less than 2 seconds. Neurological: General: No focal deficit present. Mental Status: She is alert and oriented to person, place, and time. Psychiatric: Mood and Affect: Mood normal. Behavior: Behavior normal. Thought Content: Thought content normal. Judgment: Judgment normal. Labs: CBC stable, renal function about typical for her, K+ stable- slightly low PLT 220 Last lab values have been reviewed CV Testing: Echocardiogram 06/13/2022: Mild concentric left ventricular hypertrophy, normal ventricular systolic function, LVEF is 65 to 70%, normal right ventricular size and systolic function, grade 2 diastolic dysfunction, mild mitral and tricuspid regurgitation, moderately elevated right-sided pressures, (more content not included)...[facility]08-25-2023 NotePatient here for 6 mo follow up CAD, chronic diastolic heart failure, hypertension, and CKD. Had labs about 1 month ago. Still gets the chest pain, but says it's better. Gets winded when walking long distances. Doing great. Review of Systems Cardiovascular: Positive for chest pain (continues to improve) and dyspnea on exertion. All other systems reviewed and are negative.[facility] 01-30-2023 Evaluation note* Encounter Date Diagnosis Assessment Notes Treatment Notes Treatment Clinical Notes Dec, CKD (chronic kidney disease) stage 4, GFR 15-29 ml/min (ICD-10 - N18.4) She has CKD due to DM and HTN with SCr 2-2.2 mg/dl. Her renal function is declinig due to progression of her CKD. Her renal US showed left nephrolithiasis and possible Fibroid. I discussed with her the importance of good DM and HTN control to slow down the progression of CKD. 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 Continue Hydralazine. I have advised him to comply with 50 ounces of fluid. Continue current dose of the Bumex and metolazone. I have advised him to monitor blood pressure at home and call office if it stays above 140/90 mmHg Dec, Diabetes mellitus wi th chronic kidney disease (ICD-10 - E11.22) Her blood sugars are within acceptable range. Continue to follow with PCP for DM management. She is currently not on TOLU or ARB due to the worsening renal function. I have explained to her due to her advanced CKD she may not benefit SGLT 2 inhibitors inhibitors including Farxiga Jardiance or Invokana. Dec, Secondary hyperparathyroidism (ICD-10 - N25.81) She had secondary hyperparathyroidism due to the vitamin D deficiency and hyperphosphatemia. I have advised low phosphorus diet. I have advised her to Continue vitamin D every other week. Dec, Hyperuricemia (ICD-1 0 - E79.0) She has hyperuricemia due to the advanced CKD. Continue current dose of the allopurinol. Dec, Microscopic hematuri a (ICD-10 - R31.29) She has microscopic hematuria and was seen by Dr. Kwon. She underwent Cystoscopy and reported that it was unremarkable. Dec, Hypokalemia (ICD-10 - E87.6) She has hypokalemia due to the diuretic induced renal potassium wasting. Continue potassium chloride 40 mEq p.o. 3 times daily Dec, Anemia of renal dise ase (ICD-10 - D63.1) Hemoglobin is within the acceptable range but has adequate Iron stores. Continue oral iron. [facility] Other 03-13-2023 Note[facility]iology - [facility] Subjective Claudia Estrella is a 72 y.o. year old female patient being seen for 2 mo follow up Coronary Artery Disease, Hypertension, and Congestive Heart Failure She had labs on 08/23/[address] Jenkins. She has been doing very well. She is only taking metolazone about once a week, instead of 3 times per week. SOB and LE edema have been well controlled she says. Patient Active Problem List Diagnosis Coronary arteriosclerosis Heart murmur Hypertensive disorder Kidney disease Recurrent herpes simplex Stage 4 chronic kidney disease (CMS/HCC) Type 2 diabetes mellitus (CMS/HCC) Chronic diastolic heart failure (CMS/HCC) Benign essential hypertension Glaucoma Goiter Family History Problem Relation Name Age of Onset Heart attack Mother Heart failure Mother Heart attack Father Social History Tobacco Use Smoking status: Never Smokeless tobacco: Never Substance Use Topics Alcohol use: Not Currently HPI Claudia is seen in follow-up. She is a 72-year-old woman with prior history of hypertension and diabetes. She was previously evaluated in cardiology clinic because of symptoms of angina. Her medications were optimized. She has chronic kidney disease. Despite optimal medical therapy she continues to have symptoms of unstable angina. Cardiac catheterization in July 2020 showed severe three-vessel coronary artery disease. She underwent CABG on 07/13/2020. She developed postoperative atrial fibrillation that converted medically. Currently she is on aspirin, Plavix, atorvastatin, amlodipine, metoprolol and bumetanide. I had been increasing Bumex and she is currently 2 mg twice daily. At a prior visit I also added amlodipine 10 mg daily and then doxazosin due to uncontrolled hypertension. I also changed her metolazone to 2.5 mg once a week. The changes were made based on blood testing and symptoms. Blood testing 04/15/2021 showed low potassium and elevation of BUN and creatinine. I asked her to stop taking metolazone and reduce bumetanide to 2 mg in am and 1 mg in pm. Keep potassium the same. Follow-up BMP showed improvement in potassium. She is currently taking bumetanide 1 mg in a.m. and 1 mg in p.m. She takes metolazone 2.5 mg once a week. Recently she had worsening swelling and weight gain about 7 pounds. I had her take Bumex 2 mg in the morning and 1 mg in the evening and make metolazone 2.5 mg twice a week. She then was evaluated in our clinic on 10/20/2021 and then referred to the emergency room. Currently she is maintained on bumetanide 2 mg twice daily and metolazone 2.5 mg twice weekly. On 12/09/2021 she underwent right heart catheterization that showed mildly elevated filling pressures and mild pulmonary hypertension. Bumetanide was changed from 3 mg in the morning and 2 mg in evening to 2 mg twice daily. On follow-up due to worsening renal function and weight loss she was told to stop spironolactone. She is also not taking metolazone anymore. after visit with me in June 2022 she was having evidence of volume overload. I increased her diuretic therapy. She was then seen in follow-up in July 2022. today she reports that she has been doing really well on the current diuretic therapy. No significant lower extremity edema. She has mild shortness of breath on exertion, NYHA class II. No palpitations. She does report occasional chest discomfort when she gets upset. She uses sublingual nitroglycerin once every 2 to 4 weeks. Review of Systems Cardiovascular: Positive for chest pain (intermittent) and dyspnea on exertion. All other systems reviewed and are negative. Objective Visit Vitals BP 149/67 (BP Location: Right arm, Patient Position: Sitting) Pulse 75 Ht 1.422 m (4' 8 ) Wt 55.3 kg (122 lb) SpO2 97% BMI 27.35 kg/m??? Smoking Status Never BSA 1.48 m??? Physical Exam Constitutional: Appearance: She is well-developed. She is not ill-appearing. HENT: Head: Normocephalic and atraumatic. Nose: Nose normal. Eyes: General: No scleral icterus. Pupils: Pupils are equal, round, and reactive to light. Neck: Thyroid: No thyromegaly. Vascular: No JVD. Cardiovascular: Rate and Rhythm: Normal rate and regular rhythm. Pulses: Radial pulses are 2+ on the right side and 2+ on the left side. Heart sounds: Normal heart sounds. No murmur heard. No friction rub. No gallop. Pulmonary: Effort: Pulmonary effort is normal. No respiratory distress. Breath sounds: Normal breath sounds. No wheezing or rales. Chest: Chest wall: No tenderness. Abdominal: General: Bowel sounds are normal. There is no distension. Palpations: Abdomen is soft. Tenderness: There is no abdominal tenderness. Musculoskeletal: General: No swelling. Cervical back: Neck supple. Skin: General: Skin is warm and dry. Neurological: General: No focal deficit present. Mental Status: She is alert and orien (more content not included)...[facility]02-28-2023 Evaluation note* Encounter Date Diagnosis Assessment Notes Treatment Notes Treatment Clinical Notes Aug, CKD (chronic kidney disease) stage 4, GFR 15-29 ml/min (ICD-10 - N18.4) She has CKD due to DM and HTN with SCr 2-2.2 mg/dl. Her renal function is declinig due to progression of her CKD. Her renal US showed left nephrolithiasis and possible Fibroid. I discussed with her the importance of good DM and HTN control to slow down the progression of CKD. 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 Continue Hydralazine. I have advised him to comply with 50 ounces of fluid. Continue current dose of the Bumex and metolazone. I have advised him to monitor blood pressure at home and call office if it stays above 140/90 mmHg Aug, Diabetes mellitus wi th chronic kidney disease (ICD-10 - E11.22) Her blood sugars are within acceptable range. Continue to follow with PCP for DM management. She is currently not on TOLU or ARB due to the worsening renal function. Aug, Secondary hyperparathyroidism (ICD-10 - N25.81) She had secondary hyperparathyroidism due to the vitamin D deficiency and hyperphosphatemia. I have advised low phosphorus diet. I have advised her to Continue vitamin D every other week. Aug, Hyperuricemia (ICD-1 0 - E79.0) She has hyperuricemia due to the advanced CKD. Continue current dose of the allopurinol. Aug, Microscopic hematuri a (ICD-10 - R31.29) She has microscopic hematuria and was seen by Dr. Kwon. She underwent Cystoscopy and reported that it was unremarkable. Aug, Hypokalemia (ICD-10 - E87.6) She has hypokalemia due to the diuretic induced renal potassium wasting. Continue potassium chloride 40 mEq p.o. 2 times daily Aug, Anemia of renal dise ase (ICD-10 - D63.1) Hemoglobin is within the acceptable range but has low Iron stores. Continue oral iron. She will need a GI work-up if has not been done by the PCP in the recent past. Will defer this to the PCP. [facility] Other 11-28-2022 Evaluation note* Encounter Date Diagnosis Assessment Notes Treatment Notes Treatment Clinical Notes May, CKD (chronic kidney disease) stage 4, GFR 15-29 ml/min (ICD-10 - N18.4) She has CKD due to DM and HTN with SCr 2-2.2 mg/dl. Her renal function is declinig due to progression of her CKD. Her renal US showed left nephrolithiasis and possible Fibroid. I discussed with her the importance of good DM and HTN control to slow down the progression of CKD. 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 Continue Hydralazine. I have advised him to comply with 50 ounces of fluid. Continue current dose of the Bumex and metolazone. I have advised him to monitor blood pressure at home and call office if it stays above 140/90 mmHg May, Diabetes mellitus wi th chronic kidney disease (ICD-10 - E11.22) Her blood sugars are within acceptable range. Continue to follow with PCP for DM management. She is currently not on TOLU or ARB due to the worsening renal function. May, Secondary hyperparathyroidism (ICD-10 - N25.81) She had secondary hyperparathyroidism due to the vitamin D deficiency and hyperphosphatemia. I have advised low phosphorus diet. I have advised her to decrease her vitamin D every other week. May, Hyperuricemia (ICD-1 0 - E79.0) She has hyperuricemia due to the advanced CKD. Continue current dose of the allopurinol. May, Microscopic hematuri a (ICD-10 - R31.29) She has microscopic hematuria and was seen by Dr. Kwon. She underwent Cystoscopy and reported that it was unremarkable. May, Hypokalemia (ICD-10 - E87.6) She has hypokalemia due to the diuretic induced renal potassium wasting. Continue potassium chloride 40 mEq p.o. 2 times daily May, Iron deficiency (ICD -10 - E61.1) Hemoglobin is within the acceptable range and has an adequate Iron stores. Continue oral iron. [facility] Other 11-21-2022 Evaluation note* Encounter Date Diagnosis Assessment Notes Treatment Notes Treatment Clinical Notes May, CKD (chronic kidney disease) stage 4, GFR 15-29 ml/min (ICD-10 - N18.4) [facility] Other 07-28-2022 Evaluation note* Encounter Date Diagnosis Assessment Notes Treatment Notes Treatment Clinical Notes Dec, CKD (chronic kidney disease) stage 4, GFR 15-29 ml/min (ICD-10 - N18.4) She has CKD due to DM and HTN with SCr 1.6-2.0 mg/dl. Her renal US showed left nephrolithiasis and possible Fibroid. I discussed with her the importance of good DM and HTN control to slow down the progression of CKD. 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 Continue Hydralazine. I have advised him to comply with 50 ounces of fluid. Continue current dose of the Lasix and metolazone. I have advised him to monitor blood pressure at home and call office if it stays above 140/90 mmHg Dec, Diabetes mellitus wi th chronic kidney disease (ICD-10 - E11.22) Her blood sugars are within acceptable range. Continue to follow with PCP for DM management. She is currently not on TOLU or ARB due to the worsening renal function. Dec, Secondary hyperparathyroidism (ICD-10 - N25.81) She had secondary hyperparathyroidism due to the vitamin D deficiency and hypophosphatemia. I have advised low phosphorus diet. Her PTH, calcium and vitamin D are now within the goal with oral vitamin D. Dec, Hyperuricemia (ICD-1 0 - E79.0) She has hyperuricemia due to the advanced CKD. Continue current dose of the allopurinol. Dec, Microscopic hematuri a (ICD-10 - R31.29) She has microscopic hematuria and was seen by Dr. Kwon. She underwent Cystoscopy and reported that it was unremarkable. Dec, Hypokalemia (ICD-10 - E87.6) She has hypokalemia due to the diuretic induced renal potassium wasting. Continue potassium chloride 40 mEq p.o. 2 times daily Dec, Iron deficiency (ICD -10 - E61.1) Hemoglobin is within the acceptable range and has an adequate Iron stores. Continue oral iron. [facility] Other 03-22-2022 Evaluation note* Encounter Date Diagnosis Assessment Notes Treatment Notes Treatment Clinical Notes Aug, Hypokalemia (ICD-10 - E87.6) [facility] Other 03-21-2022 Evaluation note* Encounter Date Diagnosis Assessment Notes Treatment Notes Treatment Clinical Notes Aug, CKD (chronic kidney disease) stage 4, GFR 15-29 ml/min (ICD-10 - N18.4) She has CKD due to DM and HTN with SCr 1.6-2.0 mg/dl. Her renal US showed left nephrolithiasis and possible Fibroid. I discussed with her the importance of good DM and HTN control to slow down the progression of CKD. 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 He appears to be euvolemic. I have prescribed hydralazine for better blood pressure control. I have advised him to comply with 50 ounces of fluid. Continue current dose of the Bumex and metolazone. I have advised him to monitor blood pressure at home and call office if it stays above 140/90 mmHg Aug, Diabetes mellitus wi th chronic kidney disease (ICD-10 - E11.22) Her blood sugars are within acceptable range. Continue to follow with PCP for DM management. She is currently not on TOLU or ARB due to the worsening renal function. Aug, Secondary hyperparathyroidism (ICD-10 - N25.81) She had secondary hyperparathyroidism due to the vitamin D deficiency and hypophosphatemia. I have advised low phosphorus diet. Her PTH, calcium and vitamin D are now within the goal with oral vitamin D. Aug, Hyperuricemia (ICD-1 0 - E79.0) She has hyperuricemia due to the advanced CKD. Continue current dose of the allopurinol. Aug, Microscopic hematuri a (ICD-10 - R31.29) She has microscopic hematuria and was seen by Dr. Kwon. She underwent Cystoscopy and reported that it was unremarkable. Aug, Hypokalemia (ICD-10 - E87.6) She has hypokalemia due to the diuretic induced renal potassium wasting. Continue potassium chloride 40 mEq p.o. 2 times daily Aug, Iron deficiency (ICD -10 - E61.1) Hemoglobin is within the acceptable range and has an adequate Iron stores. Continue oral iron. [facility] Other 01-16-2022 Evaluation note* Encounter Date Diagnosis Assessment Notes Treatment Notes Treatment Clinical Notes Jul, Hyperuricemia (ICD-1 0 - E79.0) [facility] Other 11-16-2021 Evaluation note* Encounter Date Diagnosis Assessment Notes Treatment Notes Treatment Clinical Notes May, CKD (chronic kidney disease) stage 4, GFR 15-29 ml/min (ICD-10 - N18.4) She has CKD due to DM and HTN with SCr 1.6-2.0 mg/dl. Her renal US showed left nephrolithiasis and possible Fibroid. I discussed with her the importance of good DM and HTN control to slow down the progression of CKD. 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 He appears to be euvolemic. I have advised him to comply with 50 ounces of fluid. Continue current dose of the Bumex and metolazone. I have advised him to monitor blood pressure at home and call office if it stays above 140/90 mmHg May, Diabetes mellitus wi th chronic kidney disease (ICD-10 - E11.22) Her blood sugars are within acceptable range. Continue to follow with PCP for DM management. She is currently not on TOLU or ARB due to the worsening renal function. May, Secondary hyperparathyroidism (ICD-10 - N25.81) She had secondary hyperparathyroidism due to the vitamin D deficiency and hypophosphatemia. I have advised low phosphorus diet. Her PTH, calcium and vitamin D are now within the goal with oral vitamin D. May, Hyperuricemia (ICD-1 0 - E79.0) She has hyperuricemia due to the advanced CKD. Continue current dose of the allopurinol. May, Microscopic hematuri a (ICD-10 - R31.29) She has microscopic hematuria and was seen by Dr. Kwon. She underwent Cystoscopy and reported that it was unremarkable. May, Hypokalemia (ICD-10 - E87.6) She has hypokalemia due to the diuretic induced renal potassium wasting. Increase potassium chloride 40 mEq p.o. 2 times daily May, Iron deficiency (ICD -10 - E61.1) Hemoglobin is within the acceptable range and has an adequate Iron stores. Continue oral iron. [facility] Other 11-02-2020 NoteRounds at this time with MURPHY Amor, Dr Michel. Daughter bedside. Patient is alert & involved in plan of care. Labs & diagnostics reviewed. Contact information provided with white board updated. Observation status. Declines chest pain at this time. Plan for stress test today. PT/OT consultsas patient had knee surgery on 05/01, await recommendations. Patient is from home with her & family can transport at discharge. Anticipated discharge 05/04 or 05/05. CRM to follow. MURPHY Amor received a phone call from patient who is very upset & tearful stating she is upsetbecause she was here all weekend waiting to have a stress test & now they told her they don't know if they have her on the schedule. MURPHY Amor spoke with Dr Michel & verified that she spoke with Trudy Suazo of Cardio who is adding patient to todays list, unknown time. Emotional support pro vided. Patient requesting to speak with Patient Experience. MURPHY Amor notified Maryan Lopez. 1:30 PM - Per BRYCE Au, patient has been discharged home & patient very upset. PT=No needs. Did not see OT eval done prior to d/c. Per Dr iMchel - patient did not have stress test done today as it was not on schedule. MURPHY Amor notified Taylor Fisher & aMryan Lopez.[facility] SystemComment on above:Result Comment: Electronically Signed By: Zuleyma Shin RN\.rashmi\Date and Time Signed: 05/04/20 13:53 [id number] NoteBasic Information Cardiology Progress Subjective Cardiology consulted over weekend for chest discomfort post operatively. Her EKG was non-acute and troponin trended negative. She does have a debone supervisor and reportedly had stress testing in August of this year. She was ordered to have echocardiogram and dobutamine stress echo- testing pending. No further chest pain. Patient wants to be discharged home. No events on telemetry, BP has been fairly stable, elevated this am however her cardiac medications held for testing. Review of Systems Constitutional: no fever, no chills, no weakness, no fatigue Respiratory: no shortness of breath, no cough, no orthopnea, no wheezing Cardiovascular: no chest pain, no palpitations, no edema Neuro:no dizziness no light headed no syncope Additional ROS info: Except as noted in the above Review of Systems and in the History of Present Illness all other systems have been reviewed and are negative or noncontributory. Objective Vitals & Measurements T: 36.6 ?C (Oral) TMIN: 36.4 ?C (Oral) TMAX: 36.9 ?C (Oral) HR: 90(Monitored) RR: 16 BP: 163/77 SpO2: 95% WT: 67.3 kg Intake & Output No qualifying data available. Physical Exam General: Well appearing female alert, no acute distress Neck: Supple, noJVD Cardiovascular: regular rate and rhythm, no murmur normal peripheral perfusion Respiratory: Lungs CTA, respirations non labored Extremities:no edema Neurological: oriented x 4, LOC appropriate for age, sensation equal & normal bilaterally, speech normal Skin: Warm, dry, intact- no rash or concerning lesions Lab Results Glucose Cap: 149 mg/dL High (05/04/20 12:12:00) POC Device SN: [id number] (05/04/20 12:12:00) POC Username: [email or web address] COTA (05/04/20 12:12:00) Diagnostic Results (05/02/2020 13:21 EDT US Carotid Duplex Bilateral) Reason For Exam Bruit POWERSCRIBE REPORT IMPRESSION: 50-69% STENOSIS IS PREDICTED OF BOTH INTERNAL CAROTID ARTERIES. ANTEGRADE FLOW BOTH VERTEBRAL AREAS. [1] Assessment/Plan 1. Other chest pain (R07.89: Other chest pain) No further chest pain. Her EKG non-acute, troponin trended negative. Explained that stress testing will be either later this afternoon or possibly early am due to scheduling. Patient declines in-patient testing. She is offered testing in am, but prefers all testing to be performed at [facility]. Faxed notes to her primary debone supervisor's office, Dr Fish. Attempted to schedule stress testing with [facility]. Ordered: EC Stress Echo Complete w/ Contrast 2. Hypertension (I10: Essential (primary) hypertension) Continue current medications and follow up with primary debone supervisor on discharge. 3. Diabetes (E11.9: Type 2 diabetes mellitus without complications) 4. Acute medial meniscus tear of left knee (S83.242A: Other tear of medial meniscus, current injury, left knee, initial encounter) 5. Localized osteoarthritis of left knee (M17.12: Unilateral primary osteoarthritis, left knee) 6. No contraindication to deep vein thrombosis (DVT) prophylaxis (Z78.9: Other specified health status) Bruit (R09.89: Other specified symptoms and signs involving the circulatory and respiratory systems) Carotid Duplex performed this admit- started on asa and statin therapy. She prefers to discuss this management further with her primary debone supervisor, but agreeable to starting statin for now. Patient is offered in-patient stress echocardiogram but declines as she wants to be discharged. She is offered out patient stress testing at [facility] tomorrow am and she prefers to have this done at [facility]. Per Central Scheduling at [facility], Dobutamine Stress Echo's are not performed at the facility. She will have close FU with Dr Fish to move forward with testing. D/W Dr Michel. Faxed info from [facility] Hospital stay to her primary debone supervisor. Attestation Discussed patient findings and plan of care with Dr. Ramírez Problem List/Past Medical History Ongoing Diabetes Hypertension Historical No qualifying data Medications Inpatient acetaminophen 325 mg Tab, 650 mg= 2 tab(s), Oral, q6hr, PRN Al hydroxide/Mg hydroxide/simethicone 200 mg-200 mg-20 mg/5 mL oral suspension, 30 mL, Oral, q6hr, PRN amLODIPine 10 mg Tab, 10 mg= 1 tab(s), Oral, Daily aspirin 325 mg Oral EC Tab, 325 mg= 1 tab(s), Oral, Daily Atropine Abboject 0.1 mg/mL Injection, 1 mg= 10 mL, IV Push, Once, PRN Atropine Abboject 0.1 mg/mL Injection, 1 mg= 10 mL, IV Push, Once, PRN Definity Susp Inj, 1.5 mL, IV Push, Once DOBUTamine additive 100 mg [5 mcg/kg/min] + Sodium Chloride 0.9% intravenous solution 100 mL DOBUTamine additive 100 mg [5 mcg/kg/min] + Sodium Chloride 0.9% intravenous solution 100 mL hydrochlorothiazide 12.5 mg Tab, 12.5 mg= 1 tab(s), Oral, Daily Levemir 100 units/mL Injection-Insulin, 15 unit(s)= 0.15 mL, SubCutaneous, TID Lipitor 20 mg Tab, 20 mg= 1 tab(s), Oral, Bedtime saturnino (more content not included)...[facility] on above: Result Comment: Electronically Signed By: Trudy SUAZO CNP\.br\Date and Time Signed: 05/04/20 13:15 EST\.br\Electronically Co-Signed By: Darrell VIGIL, Jay Jay Conklin\.br\Date and Time Co-Signed: 05/04/20 13:19 [id number] NoteIV removed. nurse observer helper emptied. patient and patients daughter verbalized understanding of discharge teaching. patient refused flu vaccination. patient did not verbalize any questions or concerns atthis time.[facility] Note Admission Information Admitting Physician - JUN VIGIL, Nhung Consulting Physician - Eleuterio VIGIL, John Olson Referring Physician - David Talamantes DO Hospital Course 70-year-old female with history of hypertension, hyperlipidemia, cardiac arrhythmia who was admitted to PACU with chief complaint of substernal chest pain. Patient had a left medial meniscus repair and recovering in the PACU she started complaining of substernal chest pain and heaviness that lastedfor about 10 minutes.. Her vital signs as well as troponins were low. Cardiology was consulted given patient has multiple risk factors and they recommended doing a stress test/echo. Unfortunately over the weekend this could not be done and was unable to be scheduled onMonday as well. Patient was given the option to stay in the hospital for another day versus following up with her debone supervisor and she has opted to do the latter. This is reasonable as she is chest pain-free at rest as well as on exertion. Patient is already on lisinopril, metoprolol, aspirin. Lipitor 20 mg was added for further risk reduction. She will follow-up with her primary debone supervisor Dr. Fish. Regarding her recent Ortho surgery she will do weightbearing activity as tolerated and use crutchesfor assistance with ambulation. Dr. Kushal Michel Hospitalist This report was transcribed using voice recognition software. Every effort was made to ensure accuracy, however, inadvertently computerized board attendant mistakes may be present. Significant Findings POWERSCRIBE REPORT IMPRESSION: 50-69% STENOSIS IS PREDICTED OF BOTH INTERNAL CAROTID ARTERIES. ANTEGRADE FLOW BOTH VERTEBRAL AREAS. Physical Exam Vitals & Measurements T: 36.6 ?C (Oral) TMIN: 36.4 ?C (Oral) TMAX: 36.9 ?C (Oral) HR: 90(Monitored) RR: 16 BP: 163/77 SpO2: 95% WT: 67.3 kg General: Alert and oriented, No acute distress. Eye: Normal conjunctiva. HENT: Normocephalic. Neck: Supple, No jugular venous distention. Respiratory: Clear to auscultation. Cardiovascular: Normal rate, Regular rhythm. Gastrointestinal: Soft, Non-tender, Non-distended, Normal bowel sounds. Integumentary: Warm. Neurologic: Alert, Oriented, No focal deficits. Psychiatric: Cooperative. Discharge Plan 1. Other chest pain (R07.89: Other chest pain) Ordered: Hospital Discharge Day 30 Min/Less 87362 2. Hypertension (I10: Essential (primary) hypertension) Ordered: Hospital Discharge Day 30 Min/Less 99101 3. Diabetes (E11.9: Type 2 diabetes mellitus without complications) Ordered: atorvastatin, 20 mg = 1 tab(s), Oral, Bedtime, # 30 tab(s), Refills(s) 1, Pharmacy: [facility]/pharmacy #[id number], 141.5, cm, 04/24/20 13:16:00 EDT, Height/Length Dosing, 69, kg, 05/02/20 5:50:00 EDT, Weight Dosing Hospital Discharge Day 30 Min/Less 49699 4. Acute medial meniscus tear of left knee (S83.242A: Other tear of medial meniscus, current injury, left knee, initial encounter) Ordered: Hospital Discharge Day 30 Min/Less 64830 5. Localized osteoarthritis of left knee (M17.12: Unilateral primary osteoarthritis, left knee) Ordered: Hospital Discharge Day 30 Min/Less 13271 6. No contraindication to deep vein thrombosis (DVT) prophylaxis (Z78.9: Other specified health status) Ordered: Hospital Discharge Day 30 Min/Less 73220 Bruit (R09.89: Other specified symptoms and signs involving the circulatory and respiratory systems) Orders: atropine, 1 mg = 10 mL, Injection, IV Push, Once PRN Other (see comment), Routine, Start date 05/04/20 9:45:00 EST DOBUTamine 100 mg [5 mcg/kg/min] + Sodium Chloride 0.9% intravenous solution 100 mL, 100 mL, IV, 20.7 mL/hr, for 1 dose(s), Stop date 05/04/20 14:32:00 EST, Routine, Start date 05/04/20 9:45:00 EST, 4.8 hour(s), Total volume (mL): 100, Test dose starts at 5mcg/kg/min with increases every 3 mins perprotocol until max HR or max dose is... metoprolol, 5 mg = 5 mL, Injection, IV Push, q2hr PRN Other (see comment), Routine, Start date 05/04/20 9:45:00 EST Discharge Patient Occupational Therapy Evaluate Patient, Develop a Plan of Care and Implement Plan Physical Therapy Evaluate Patient, Develop a Plan of Care and Implement Plan Discharge Medication List Prescriptions Lipitor 20 mg Tab, 20 mg= 1 tab(s), Oral, Bedtime, 1 refills Home amLODIPine 10 mg Tab, 10 mg= 1 tab(s), Oral, Daily aspirin 81 mg oral tablet, 81 mg= 1 tab(s), Oral, Daily Basaglar KwikPen, 15 unit(s), SubCutaneous, TID hydrochlorothiazide-lisinopril 12.5 mg-20 mg Tab, 1 tab(s), Oral, Daily metoprolol 25 mg ER Tab, See Instructions Restasis 0.05% ophthalmic emulsion, 1 drop(s), Eye-Both, BID Follow-up With When Contact Information Follow up with [employer] Within 1 week Additional Instructions: JOHN PERDOMO [facility] [place] [address]- Truist (1) Additional Instructions: David Talamantes [address] [place] [id number]- [employer] (1) Additional Instructions: Keep scheduled (more content not included)...[facility] SystemComment on above:Result Comment: Electronically Signed By: RAMIREZ VIGIL, Kushal\.br\Date and Time Signed: 05/04/20 12:[id number] Amir rounded with patient earlier. CRM stopped into patients room, patient is alert and participates in plan of care. Patient's daughter, Francis at bedside. Patient lives at home with spouse. patient needs ECHO and stress test - to be done Monday. UR notified. Insurance information, PCP and DME verified. Contact information provided. Patient denies any further discharge needs/concerns at this time. Anticipated discharge 05/04/2020 home. CRM to follow.[facility] SystemComment on above:Result Comment: Electronically Signed By: Ab WU, Terri Dean.rashmi\Date and Time Signed: 05/02/20 10:06 [id number] NoteReason for Consultation Chest pain postoperatively History of Present Illness Mrs. Estrella is a very pleasant 70-year-old diabetic female with hypertension, unknown cholesterol, previously seen by debone supervisor Dr. Fish in September 2019 for what appears to be bigeminal symptoms and chest pain. According to the patient she underwent an echocardiogram which showed possible LV dysfunction, and a stress test which she only went about 3 minutes, and became profoundly short of breath. According to the patient her stress test was read as inconclusive. A cardiac catheterization was recommended at that time but then COVID-19 hit and this has been deferred. The patient was placed on beta-blockers after a 30-day event monitor demonstrated bigeminy, and her bigeminal symptoms apparently have improved. Patient recently injured her left knee, and required knee surgery which took place yesterday. Postoperatively in the holding area after receiving Dilaudid the patient developed severe substernal chest pressure, nonradiating, with associated shortness of breath. EKG was obtained which showed normal sinus rhythm, no acute changes. No previous myocardial infarction noted. The patient received 2 sublingual nitroglycerin and her chest pain completely resolved. Her troponins have been negative x4. Upon further history, prior to her knee injury, the patient had episodes of atypical chest pain, but no overt exertional symptoms especially could tell. She states that she underwent x-ray of her left knee which demonstrated calcification of her arteries, as well as what sounds like PVRs of her lower extremities. Patient also admits to occasional claudication type symptoms in her feet. Patient has had no further chest pain overnight. Her testing apparently took place in a private debone supervisor office, so I am unsure whether we can get those records this weekend. Review of Systems Constitutional: no fever, no sweats, no weakness Skin: no rash, no lesions, nobruising/petechiae ENMT: no sore throat, no congestion, no hoarseness Respiratory: no shortness of breath, no cough, no orthopnea, no wheezing Cardiovascular: mild chest pain, no palpitations, no edema Gastrointestinal: no nausea, no vomiting, no diarrhea, no GI bleeding Genitourinary: no anuria/oliguria no hematuria Musculoskeletal: no back pain, no trauma Neurologic: no headache, no dizziness, no numbness, no weakness Psychiatric: no sleeping problems, no irritability, no anxiety/depression. Heme/Lymph: no bleeding tendency, no bruising tendency Allergy/Immunologic: no recurrent infections, no impaired immunity Additional ROS info: Except as noted in the above Review of Systems and in the History of Present Illness all other systems have been reviewed and are negative or noncontributory. Physical Exam Vitals & Measurements T: 36.7 ?C (Oral) TMIN: 36.3 ?C (Oral) TMAX: 36.8 ?C (Temporal Artery) HR: 88(Monitored) RR: 16 BP:153/80 SpO2: 94% WT: 69.0 kg WT: 69.0 kg General: alert, no acute distress Skin: warm, dry intact Head: atraumatic, normocephalic Neck: Trachea midline, no JVD, mild bruit Eye: normal conjunctiva, sclera clear ENMT: oral mucosa moist Cardiovascular: regular rate and rhythm, nomurmur normal peripheral perfusion Respiratory: Lungs CTA, respirations non labored Chest wall: no deformity. Gastrointestinal: soft, non distended, no tenderness, no guarding. Back: No tenderness, Normal ROM, Normal alignment. Extremities: no edema, no deformity, no trauma Neurological: oriented x 4, LOC appropriate for agesensation equal & normal bilaterally, speechnormal Psychiatric: cooperative, affect appropriate for age, normal judgement, normal psychiatric thoughts. Assessment/Plan 70-year-old diabetic hypertensive female, with history of bigeminy, reportedly indeterminate recentstress test in September 2019 at a private debone supervisor 's office, reportedly LV dysfunction per thepatient, with intermittent chest pain on and off since her initial evaluation despite beta-ranjit therapy. 1. Other chest pain (R07.89: Other chest pain) Patient developed chest pain after Dilaudid postoperatively from her knee surgery but reports she has had intermittent episodes of chest pain, mostly with emotional stress, not so much with exertion.Unfortunately she is unable to walk on a stress test, and her private doctor's office may be unableto give us records this weekend. Nonetheless given the patient's risk factors of age, diabetes, obesity, hypertension, peripheral vascular disease and claudication symptoms, she is at high risk for concomitant coronary occlusive disease. Her EKG is negative, and her troponins are negative as well. In order to better evaluate the patient's cardiac status, I recommend that she undergo a repeat 2D echo with Doppler this upcoming Monday to confirm/deny the presence of significant LV dysfunction asshe reports to me this morning. In addition I would recommend that she undergo a dobutami (more content not included)...[facility] SystemComment on above:Result Comment: Electronically Signed By: Eleuterio VIGIL, John Marin.br\Date and Time Signed: 05/02/20 08:35 [id number] NoteBasic Information Accompanied by: Family member Source of History: Self Present at Bedside: Family member Referral Source: Recovery room History Limitation: None Chief Complaint chest pain History of Present Illness Pt is a 70 F PMH HTN, HLD admitted from PACU. pt had a repair of a left medial meniscus tear with Dr. Talamantes of [facility]. Pt was in PACU recovering, had a dose of Dilaudid. Pt developed substernal chestpain, pt described as a heaviness. Pt says it lasted for about 10 minutes. Pt had some mild so, nausea, no vomiting, no diaphoresis. Pt had some relief with SL nitro. Pt denies any current chest pain. Pt denies any history of CAD, pt says she had a negative stress test 08/2019, has never had a cardiac cath. pt with no other complaints. Review of Systems Additional ROS info: Except as noted in the above Review of Systems and in the History of Present Illness all other systems have been reviewed and are negative or noncontributory. Physical Exam Vitals & Measurements T: 36.8 ?C (Temporal Artery) TMIN: 36.6 ?C (Temporal Artery) TMAX: 36.8 ?C (Temporal Artery) HR: 74(Monitored) RR: 17 BP: 114/68 SpO2: 98% General: alert, no acute distress Skin: warm, dry Head: no trauma, normocephalic Neck: Trachea midline, no adenopathy, no tenderness Eye: normal conjunctiva, sclera clear ENMT: oral mucosa moist, no pharyngeal erythema or exudate Cardiovascular: regular rate and rhythm, normal peripheral perfusion Respiratory: Lungs CTA, respirations non labored Chest wall: no deformity. Gastrointestinal: soft, non distended, no tenderness, no guarding. Back: No tenderness, Normal ROM, Normal alignment. Extremities: no deformity, no trauma Neurological: oriented x 4, LOC appropriate for age, CN II-XII intact, motor strength equal & normal bilaterally, sensation equal & normal bilaterally, speech normal Psychiatric: cooperative, affect appropriate for age, normal judgement, normal psychiatric thoughts. Lab Results Troponin: 4.1 pg/mL Low (05/01/20 17:29:00) Glucose Cap: 84 mg/dL (05/01/20 16:07:00) POC Device SN: [id number] (05/01/20 16:07:00) POC Username: ALEXIA HALL (05/01/20 16:07:00) Diagnostic Results EKG NSR [address]-T wave changes Images No qualifying data available. Assessment/Plan 1. Other chest pain (R07.89: Other chest pain) - possible ACS, risk factors include DM, HTN, obesity - telemetry, troponin - ASA, fasting lipid profile - consult [facility] cardiology 2. Hypertension (I10: Essential (primary) hypertension) - hctz/lisinopril, norvasc, metoprolol 3. Diabetes (E11.9: Type 2 diabetes mellitus without complications) - SSI - lantus 4. Acute medial meniscus tear of left knee (S83.242A: Other tear of medial meniscus, current injury, left knee, initial encounter) - management as per ortho 5. Localized osteoarthritis of left knee (M17.12: Unilateral primary osteoarthritis, left knee) - as above 6. No contraindication to deep vein thrombosis (DVT) prophylaxis (Z78.9: Other specified health status) - SCDs pt will be admitted for observation possible discharge in next 24 hours d/w patient and family at bedside Orders: acetaminophen, 650 mg = 2 tab(s), Tab, Oral, q6hr PRN Pain, Routine, Start date 05/01/20 18:18:00 EDT Al hydroxide/Mg hydroxide/simethicone, 30 mL, Susp-Oral, Oral, q6hr PRN Indigestion, Routine, Startdate 05/01/20 18:18:00 EDT aspirin, 81 mg = 1 tab(s), Tab-EC, Oral, Daily, Routine, Start date 05/02/20 9:00:00 EDT magnesium hydroxide, 30 mL, Susp-Oral, Oral, q6hr PRN Constipation, Routine, Start date 05/01/20 18:18:00 EDT morphine, 2 mg = 1 mL, Injection, IV Push, q2hr PRN Chest pain for 5 day(s), Stop date 05/06/20 18:17:00 EST, Routine, Start date 05/01/20 18:18:00 EDT nitroglycerin, 0.4 mg = 1 tab(s), Tab, SubLingual, q5min PRN Chest pain for 3 dose(s), Stop date Limited # of times, Routine, Start date 05/01/20 18:18:00 EDT ondansetron, 4 mg = 2 mL, Injection, IV Push, q6hr PRN Nausea, Routine, Start date 05/01/20 18:18:00 EDT Ambulate with Assistance Basic Metabolic Panel Below the Knee Intermittent Pneumatic Compression Device Cardiac Diet Cardiac Monitoring CBC w/ Auto Diff Chest Pain, AMI Quality Measures Communication Order Consult to Cardiology Evaluate Need For Continued Telemetry Incentive Spirometry Intake and Output Lipid Panel Notify Provider Vital Signs Notify Provider Vital Signs Oxygen Protocol Place in Status Pulse Oximetry Vital Signs Weight Problem List/Past Medical History Ongoing Diabetes Hypertension Historical No qualifying data Procedure/Surgical History Cataract extraction and insertion of intraocular lens (11/19/2019), Cataract extraction and insertion of intraocular lens (11/06/2019), Anesthesia for laparoscopic procedure on lower abdomen, Appendectomy, section, Cheilectomy of tarsal, Cholecystectomy. Medications Inpatient acetaminophen 325 mg Tab (more content not included)...[facility] SystemComment on above:Result Comment: Electronically Signed By: JUN VIGIL, Nhung\.br\Date and Time Signed: 05/01/20 18:30 [id number] Note [id number]#1.00CD:[address] [place] [address] Evaluation noteNo InformationNort [employer] Other [employer] general Narrative - Reported* Type Description Date Medical History hypertension Medical History Diabetic - Medical History osteoporosis Medical History herpes of the eye Medical History HTN Medical History chronic kidney disease, stage 3 Medical History osteopenia Medical History goiter Medical History prolapsed cervical intervertebra l disc Medical History DM 2 Medical History GLAUCOMA Surgical History appendix Surgical History eyelid surgery 06/2018 Surgical History 2 Surgical History appendectomy Surgical History x 2 Surgical History ovarian cyst removal Surgical History cholecystectomy Surgical History gall bladder removal Surgical History thyroid bx x 2 Surgical History RT foot surgery Surgical History r/o ovarian cyst Surgical History double heart 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/13/2020 Surgical History cataract surgery 11/2019 Surgical History arthroscopic surgery of left kn ee 05/01/20 Surgical History cycstocopy Surgical History right eye surgery 04/2021 Hospitalization History see above DCWafers Other history general Narrative - Reported* Type Description Date Medical History hypertension Medical History Diabetic - Medical History osteoporosis Medical History herpes of the eye Medical History HTN Medical History chronic kidney disease, stage 3 Medical History osteopenia Medical History goiter Medical History prolapsed cervical intervertebra l disc Medical History DM 2 Medical History GLAUCOMA Medical History COVID 07/31/2021 Surgical History appendix Surgical History eyelid surgery 06/2018 Surgical History 2 Surgical History appendectomy Surgical History x 2 Surgical History ovarian cyst removal Surgical History cholecystectomy Surgical History gall bladder removal Surgical History thyroid bx x 2 Surgical History RT foot surgery Surgical History r/o ovarian cyst Surgical History double heart bypass 07/13/2020 Surgical History cataract surgery 11/2019 Surgical History arthroscopic surgery of left kn ee 05/01/20 Surgical History cycstocopy Surgical History right eye surgery 04/2021 Surgical History STEROID IMPLANT IN RIGHT EYE 2021 Hospitalization History see above DCWafers Other Hisjghh general Narrative - Reported* Type Description Date Medical History hypertension Medical History Diabetic - Medical History osteoporosis Medical History herpes of the eye Medical History HTN Medical History chronic kidney disease, stage 3 Medical History osteopenia Medical History goiter Medical History prolapsed cervical intervertebra l disc Medical History DM 2 Medical History GLAUCOMA Medical History COVID 07/31/2021 Surgical History appendix Surgical History eyelid surgery 06/2018 Surgical History 2 Surgical History appendectomy Surgical History x 2 Surgical History ovarian cyst removal Surgical History cholecystectomy Surgical History gall bladder removal Surgical History thyroid bx x 2 Surgical History RT foot surgery Surgical History r/o ovarian cyst Surgical History double heart bypass 07/13/2020 Surgical History cataract surgery 11/2019 Surgical History arthroscopic surgery of left kn ee 05/01/20 Surgical History cycstocopy Surgical History right eye surgery 04/2021 Surgical History STEROID IMPLANT IN RIGHT EYE 2021 Surgical History RIGHT HEART CATH 12/2021 Hospitalization History see above DCWafers Other Summary Purpose Family History No Family History Records FoundNo Family History Records FoundNo Family History Records FoundNo Family History Records FoundNo Family History Records Found Advance Directives No Advanced Directives Records FoundNo Advanced Directives Records FoundNo Advanced Directives Records FoundNo Advanced Directives Records FoundNo Advanced Directives Records Found Additional Source Comments INFORMATION SOURCE (unrecogn ized section and content) DATE CREATED AUTHOR 03/07/2021 [facility] DATE CREATED AUTHOR AUTHOR'S ORGANIZ ATION 08/05/2021 [facility] DATE CREATED AUTHOR AUTHOR'S ORGANIZ ATION 12/16/2021 [facility] DATE CREATED AUTHOR AUTHOR'S ORGANIZ ATION 10/29/2022 [facility] DATE CREATED AUTHOR AUTHOR'S ORGANIZ ATION 08/05/2023 [facility] REASON FOR VISIT (unrecogniz ed section and content) CKDNew Refill RequestCOVIDCH G PHARMACYCKDDisregard previousClinicalFluid restrictionNo InformationClinicalNo InformationWEIGHTCKD and HTNMED CLARIFICATIONCRITICAL LABCKD and HTNCKD and HTNNo InformationCKD and HTNQuestion from appointmentNo InformationCKD and HTNFYI / MEDS FOR RECORDS PERTAINING TO PATIENTS WHO ARE OR HAVE BEEN ENROLLED IN A CHEMICAL DEPENDENCY/SUBSTANCEABUSE PROGRAM, SOME INFORMATION MAY BE OMITTED. This clinical summary was aggregated from multiple sources. Caution should be exercised in using it in the provision of clinical care. This summary normalizes information from multiple sources, and as a consequence, information in this document may materially change the coding, format and clinical context of patient data. In addition, data may be omitted in some cases. CLINICAL DECISIONS SHOULD BE BASED ON THE PRIMARY CLINICAL RECORDS. [facility] provides no warranty or guarantee of the accuracy or completeness of information in this document.
--- NOTE | 2023-08-09 12:13 | CA_ITS ---
Patient Name: MADY ESTRELLA MR#: [id number] : 1950 Exam Date: 08/09/2023 Ordering Doctor: DR KARTHIK FISH M.D. ECHOCARDIOGRAM REPORT PROCEDURE: CA ECHO DOPPLER COMPLETE INDICATIONS: Hypotension, CABGx2, diabetes COMPARISON: None. DESCRIPTION: COMPLETE ECHOCARDIOGRAM Real-time transthoracic echocardiography with 2D, M-mode, spectral and color flow Doppler performed. QUALITY: Technical quality was good. 56 , 127#, BSA 1.46 m2 LEFT VENTRICLE: Normal chamber size. Borderline left ventricular hypertrophy. Normal systolic function. LV EF: Normal left ventricular ejection fraction, (>55%). DIASTOLIC: Grade 2 diastolic dysfunction. ATRIAL SEPTUM: Visually appears intact. LEFT ATRIUM: Mild dilatation. RIGHT ATRIUM: Mild dilatation. RIGHT VENTRICLE: Normal chamber size. Normal right ventricular systolic function. TRICUSPID VALVE: Normal mobility and thickness. No stenosis with mild to moderate regurgitation. Doppler studies reveal severely (>60) elevated right sided pressures. RVSP 64 mmHg. MITRAL VALVE: Moderately thickened with decreased mobility. Moderate mitral annular calcification. Mild mitral regurgitation. AORTIC VALVE: Normal trileaflet appearance. Thickened aortic valve. Normal leaflet mobility. Doppler velocity no aortic valve stenosis. Trivial aortic regurgitation. AORTIC ROOT: Normal diameter and appearance. PULMONIC VALVE: Normal thickness and mobility. No stenosis. Mild regurgitation. PERICARDIUM: No evidence of pericardial effusion. IVC: IVC is dilated (2.2 cm) does not collapse. PLEURA: CONCLUSION: 1. Normal left ventricular systolic function. LVEF is 55 to 60%. 2. Normal right ventricular size and systolic function. 3. Grade 2 diastolic dysfunction. 4. Mild biatrial dilatation. 5. Mild mitral regurgitation. 6. Mild to moderate tricuspid regurgitation. 7. Severely elevated right-sided pressures. RVSP is 64 mmHg. 8. Doppler data suggest increased left-sided filling pressures. Adult Echocardiography Procedure Report Left Ventricle LVEDD (3.7 - 5.6 cm): 4.60 cm LVESD (2.2 - 4.0 cm): 2.92 cm LVIVS thickness (0.6 - 1.2 cm): 1.12 cm LVPW thickness (0.5 - 1.0 cm): 0.96 cm e': 0.07 m/s E - e': 19.87 LVOT Max Gradient: 4.44 mm[Hg] LVOT Area (cm2): 1.05 m/s Peak Velocity (LVOT): 1.05 m/s Mean Velocity (LVOT): 0.78 m/s LVOT Diameter 1.71 cm Left Atrium LA Volume Index (2D A2C): 35.32 ml/m2 Left Atrium Systolic Dimension: 3.49 cm Mitral Valve MV E to A Ratio: 1.65 Mitral Valve A-Wave Peak Velocity: 0.90 m/s Mitral Valve E-Wave Peak Velocity: 1.49 m/s Right Ventricle Aorta AO Root Diam: 2.90 cm Ascending Ao Diam: 2.86 cm Aortic Valve AoV Area (Peak Rafael): 1.47 cm2, 1.27 cm2 AoV Area (VTI): 1.57 cm2, 1.32 cm2 Peak Velocity(Antegrade Flow): 1.91 m/s, 1.49 m/s, 1.55 m/s Peak Gradient(Antegrade Flow): 14.65 mm[Hg], 8.90 mm[Hg], 9.56 mm[Hg] Mean Velocity(Antegrade Flow): 1.30 m/s, 1.01 m/s, 1.03 m/s Mean Gradient(Antegrade Flow): 7.70 mm[Hg], 4.93 mm[Hg], 4.96 mm[Hg] Velocity Time Integral: 53.14 cm, 41.93 cm, 38.70 cm Tricuspid Valve Peak Velocity (Regurgitant Flow): 3.48 m/s, 3.31 m/s, 3.46 m/s, 3.35 m/s Pulmonic Valve Peak Velocity: 1.23 m/s Peak Gradient: 5.92 mm[Hg], 6.23 mm[Hg] Right Atrium Right Atrium Systolic Pressure: 37.21 ml, 37.21 ml Dictated by: Karthik Fish M.D. on 08/09/2023 at 19:06 Approved by: Karthik Fish M.D. on 08/09/2023 at 19:11
== END 2023-08-09 10:05 | disposition home or self-care (01) ==
LOC: CARD 10:04
PROVIDERS: PCP Family Medicine; Visit Provider Internal Medicine Interventional Cardiology
DX: I95.1 Orthostatic hypotension (principal)
CPT/HCPCS: 93306

== ENCOUNTER 2023-08-10 17:28 | Inpatient (IN) | payer MEDICARE, OTHER, SELFPAY ==
[2023-08-10] VITALS (9 sets, daily range): BP systolic 138–178; BP diastolic 51–80; PULSE 71–80; RESP 16–22; TEMP 36.8–37.1; O2SAT 96–99; BMI 28.5; BMI 29.8
--- OUTSIDE RECORDS SUMMARY | 2023-08-10 17:48 | XMS_ITS | CCD ---
Author Name Unknown Address [address] [place] [address] Organization [facility] Care Team Providers Care Direct Marketing Executive Name Role Phone JOHN PERDOMO Referring Unavailable [...] Erythromycin; Translations: [ERYTHROMYCIN] Drug Allergy [address] [facility] Repository (2 sources) HYDROmorphone Drug Allergy [address] [facility] Repository (2 sources) Penicillins; Translations: [PENICILLINS] Drug allergy (disorder) [address] [facility] Repository (20 sources) Erythromycin Drug Allergy anaphylaxis [employer] Other (20 sources) HYDROmorphone; Translations: [HYDROMORPHONE] Drug Allergy [address] [facility] Repository (20 sources) Penicillin Drug Allergy Unknown [employer] Other (20 sources) Penicillin G Benzathine Drug allergy hives [facility] [employer] Other (2 sources) Erythromycin; Translations: [ERYTHROMYCIN BASE] Drug Allergy 0 [facility] Repository (1 source) Penicillin Drug Allergy [facility] Repository (2 sources) Spironolactone Drug Allergy rash [employer] Other Medications Current Medications Medication Drug Class(es) [...] every week Vitamin D (Ergocalciferol) 1.25 MG (31940 UT) TAKE 1 CAPSULE BY MOUTH ONE TIME PER WEEK for 84 Active take 1 capsule by mo uth every other week Ergocalciferol 1.25 MG (69395 UT) 1 caps ule Orally Q2 week [...] disease (5 sources) Atherosclerotic heart disease of [place] coronary artery without angina pectoris; Translations: [Atherosclerotic heart disease of [place] coronary artery with other forms of angina [...] Test Name Value Interpretation Reference Range Facility 36on 08-09-2023 36 I reviewed her echocardiogram from today and it shows evidence of significant volume overload. 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 If she is not responding to pills then we might need to admit her for intravenous diuretic therapy. Normal [facility] Telephoneon 08-09-2023 Telephone [id number] Claudia Estrella 1950 F Date Provider Department Center 08/09/2023 KARTHIK MACKAY Family History Problem Relation Age of Onset Heart attack Mother Heart failure Mother Heart attack Father Family Status - Relation Status Age at Mother Father Normal [facility] Office Visiton 08-04-2023 Follow-up visit [id number] Claudia Estrella 1950 F Date Provider Department Center 08/04/2023 [id number], KARTHIK BH CARD [facility] Family History Problem Relation Age of Onset Heart attack Mother Heart failure Mother Heart attack Father Family Status - Relation Status Age at Mother Father Level of Service:59087 [place] OFFICE/OUTPATIENT ESTABLISHED MOD MDM 30 MIN Normal [facility] Office Visiton 02-24-2023 Follow-up visit [id number] Claudia Estrella 1950 F Date Provider Department Center 02/24/2023 CARMINA REAVES CARD [facility] Family History Problem Relation Age of Onset Heart attack Mother Heart failure Mother Heart attack Father Family Status - Relation Status Age at Mother Father Level of Service:67954 [place] OFFICE/OUTPATIENT ESTABLISHED LOW MDM 20-29 MIN Normal [facility] Orders Onlyon 12-09-2022 Orders Only [id number] Sameer,Claudia Conklin 1950 F Provider Department Center 12/09/2022 FRANCIS MUÑOZ ADY [facility] Family History Problem Relation Age of Onset Heart attack Mother Heart failure Mother Heart attack Father Family Status - Relation Status Age at Mother Father Normal [facility] 36on 10-26-2022 36 [facility] lab called to report a critical BNP of 1458. Normal [facility] BNPon 10-26-2022 Natriuretic peptide B (Bld) [Mass/Vol] 1458.0 pg/mL Critically high <=900.0 [facility] Comment on above: Performed By: #### L IPID, TSH, FT3 #### [facility] [address] [place] [address] Dr. Andrey Hargrove CBC AUTO DIFFon 10-26-2022 BASO # 0.1 103/ul Normal 0.0-0.1 [facility] Comment on above: Performed By: #### V ITAD, FETIBC, FERR #### [facility] [address] [address] [address] Andrey Hargrove Basophils/100 WBC (Bld) 0.7 % Normal 0.2-2.0 [facility] Comment on above: Performed By: #### V ITAD, FETIBC, FERR #### [facility] [address] [address] [address] Andrey Hargrove EO # 0.4 103/ul Normal 0.0-0.7 [facility] Comment on above: Performed By: #### V ITAD, FETIBC, FERR #### [facility] [address] [place] [address] Dr. Andrey Hargrove Eosinophils/100 WBC (Bld) 4.6 % Normal 0.9-7.0 [facility] Comment on above: Performed By: #### V ITAD, FETIBC, FERR #### [facility] [address] [place] [address] Dr. Andrey Hargrove Erythrocyte distribution width (RBC) [Ratio] 13.7 % Normal 11.0-15.0 [facility] Comment on above: Performed By: #### V ITAD, FETIBC, FERR #### [facility] [address] [place] [address] Dr. Andrey Hargrove Hematocrit (Bld) [Volume fraction] 35.5 % Critically low 36.0-48.0 [facility] Comment on above: Performed By: #### V ITAD, FETIBC, FERR #### [facility] [address] [place] [address] Dr. Andrey Hargrove Hemoglobin (Bld) [Mass/Vol] 12.0 g/dL Normal 12.0-16.0 [facility] Comment on above: Performed By: #### V ITAD, FETIBC, FERR #### [facility] [address] [place] [address] Dr. Andrey Hargrove IG # 0.02 10e3/ul Normal 0.00-0.03 [facility] Comment on above: Performed By: #### V ITAD, FETIBC, FERR #### [facility] [address] [place] [address] Dr. Andrey Hargrove IG % 0.2 % Normal 0.0-0.5 [facility] Comment on above: Performed By: #### V ITAD, FETIBC, FERR #### [facility] [address] [place] [address] Dr. Andrey Hargrove LYMPH # 1.5 103/ul Normal 1.2-3.8 [facility] Comment on above: Performed By: #### V ITAD, FETIBC, FERR #### [facility] [address] [place] [address] Dr. Andrey Hargrove Lymphocytes/100 WBC (Bld) 18.1 % Critically low 20.5-60.0 [facility] Comment on above: Performed By: #### V ITAD, FETIBC, FERR #### [facility] [address] [place] [address] Dr. Andrey Hargrove MANUAL DIFF REQ NO Normal [facility] Comment on above: Performed By: #### V ITAD, FETIBC, FERR #### [facility] [address] [place] [address] Dr. Andrey Hargrove MCH (RBC) [Entitic mass] 29.3 pg Normal 26.7-34.0 [facility] Comment on above: Performed By: #### V ITAD, FETIBC, FERR #### [facility] [address] [place] [address] Dr. Andrey Hargrove MCHC (RBC) [Mass/Vol] 33.8 g/dL Normal 29.9-35.2 [facility] Comment on above: Performed By: #### V ITAD, FETIBC, FERR #### [facility] [address] [place] [address] Dr. Andrey Hargrove MCV (RBC) [Entitic vol] 86.8 fL Normal 81.0-99.0 [facility] Comment on above: Performed By: #### V ITAD, FETIBC, FERR #### [facility] [address] [place] [address] Dr. Andrey Hargrove MONO # 0.7 103/ul Normal 0.3-0.8 [facility] Comment on above: Performed By: #### V ITAD, FETIBC, FERR #### [facility] [address] [place] [address] Dr. Andrey Hargrove Monocytes/100 WBC (Bld) 7.9 % Normal 1.7-12.0 [facility] Comment on above: Performed By: #### V ITAD, FETIBC, FERR #### [facility] [address] [place] [address] Dr. Andrey Hargrove NEUT # 5.7 103/ul Normal 1.4-6.5 [facility] Comment on above: Performed By: #### V ITAD, FETIBC, FERR #### [facility] [address] [place] [address] Dr. Andrey Hargrove Neutrophils/100 WBC (Bld) 68.5 % Normal 43.0-75.0 [facility] Comment on above: Performed By: #### V ITAD, FETIBC, FERR #### [facility] [address] [place] [address] Dr. Andrey Hargrove Platelet mean volume (Bld) [Entitic vol] 10.4 fL Normal 9.5-13.5 [facility] Comment on above: Performed By: #### V ITAD, FETIBC, FERR #### [facility] [address] [place] [address] Dr. Andrey Hargrove PLT 204 103/ul Normal 150-450 [facility] Comment on above: Performed By: #### V ITAD, FETIBC, FERR #### [facility] [address] [place] [address] Dr. Andrey Hargrove RBC 4.09 106/ul Critically low 4.20-5.40 [facility] Comment on above: Performed By: #### V ITAD, FETIBC, FERR #### [facility] [address] [place] [address] Dr. Andrey Hargrove WBC 8.3 103/ul Normal 4.0-11.0 [facility] Comment on above: Performed By: #### V ITAD, FETIBC, FERR #### [facility] [address] [place] [address] Dr. Andrey Hargrove PROF CHEM 8 (BAS METB)on Anion gap [Moles/Vol] 11.1 mmol/L Normal [facility] Comment on above: Performed By: #### L IPID, TSH, FT3 #### [facility] [address] [place] [address] Dr. Andrey Hargrove Calcium [Mass/Vol] 9.2 mg/dL Normal 8.5-10.1 [facility] Comment on above: Performed By: #### L IPID, TSH, FT3 #### [facility] [address] [address] [address] Andrey Hargrove Chloride [Moles/Vol] 102 mmol/L Normal 98-107 [facility] Comment on above: Performed By: #### L IPID, TSH, FT3 #### [facility] [address] [address] [address] Andrey Hargrove CO2 [Moles/Vol] 31.2 mmol/L Normal 21.0-32.0 [facility] Comment on above: Performed By: #### L IPID, TSH, FT3 #### [facility] [address] [address] [address] Andrey Hargrove Creatinine [Mass/Vol] 1.79 mg/dL Critically high 0.55-1.02 [facility] Comment on above: Performed By: #### L IPID, TSH, FT3 #### [facility] [address] [address] [address] Andrey Hargrove EGFR-AF GERMAN 34 mL/min/1.73m2 Critically low >=60 [facility] Comment on above: Performed By: #### L IPID, TSH, FT3 #### [facility] [address] [address] [address] Andrey Hargrove EGFR-NON AF GERMAN 28 mL/min/1.73m2 Critically low >=60 [facility] Comment on above: Performed By: #### L IPID, TSH, FT3 #### [facility] [address] [address] [address] Andery Hargrove Glucose [Mass/Vol] 148 mg/dL Critically high 74-[address] [facility] Comment on above: Performed By: #### L IPID, TSH, FT3 #### [facility] [address] [address] [address] Andrey Hargrove Potassium [Moles/Vol] 3.3 mmol/L Critically low 3.5-5.1 [facility] Comment on above: Performed By: #### L IPID, TSH, FT3 #### [facility] [address] [address] [address] Andrey Hargrove Sodium [Moles/Vol] 141 mmol/L Normal 136-145 [facility] Comment on above: Performed By: #### L IPID, TSH, FT3 #### [facility] [address] [address] [address] Andrey Hargrove Urea nitrogen [Mass/Vol] 41.0 mg/dL Critically high 7.0-18.0 [facility] Comment on above: Performed By: #### L IPID, TSH, FT3 #### [facility] [address] [place] [address] Dr. Andrey Hargrove Urea nitrogen/Creatinine [Mass ratio] 22.9 mg/mg Normal [facility] Comment on above: Performed By: #### L IPID, TSH, FT3 #### [facility] [address] [place] [address] Dr. Andrey Hargrove Office Visiton 09-12-2022 Follow-up visit [id number] Claudia Estrella 1950 F Date Provider Department Center 09/12/2022 KARTHIK MACKAY [place] Family History Problem Relation Age of Onset Heart attack Mother Heart failure Mother Heart attack Father Family Status - Relation Status Age at Mother Father Level of Service:64110 [place] OFFICE/OUTPATIENT ESTABLISHED MOD MDM 30-39 MIN Reason for Visit and Comments: Coronary Artery Disease [187] Hypertension [530998] Congestive Heart Failure [127] Normal [facility] PTH INTACTon 08-24-2022 PTH, Intact 44 pg/mL Normal 15-65 [facility] Comment on above: Performed By: #### V DANIA VASQUES, FERR #### [facility] [address] [place] [address] Dr. Andrey Hargrove US THYROIDon 08-24-2022 US [...] RENETTA RENEE Date: 2022-08-24 16:16 Normal [facility] FERRITINon 08-23-2022 Ferritin [Mass/Vol] 114.0 ng/mL Normal 8.0-252.0 [facility] Comment on above: Performed By: #### V ITAD, FETIBC, FERR #### [facility] [address] [place] [address] Dr. Andrey Hargrove HEMOGRAM AND PLATELon 2022 Hematocrit (Bld) [Volume fraction] 34.9 % Critically low 36.0-48.0 [facility] Comment on above: Performed By: #### V ITAD, FETIBC, FERR #### [facility] [address] [address] [address] Andrey Hragrove Hemoglobin (Bld) [Mass/Vol] 11.8 g/dL Critically low 12.0-16.0 [facility] Comment on above: Performed By: #### V ITAD, FETIBC, FERR #### [facility] [address] [address] [address] Andrey Hargrove MCH (RBC) [Entitic mass] 28.6 pg Normal 26.7-34.0 [facility] Comment on above: Performed By: #### V ITAD, FETIBC, FERR #### [facility] [address] [place] [address] Dr. Andrey Hargrove MCHC (RBC) [Mass/Vol] 33.8 g/dL Normal 29.9-35.2 [facility] Comment on above: Performed By: #### V ITAD, FETIBC, FERR #### [facility] [address] [place] [address] Dr. Andrey Hargrove MCV (RBC) [Entitic vol] 84.7 fL Normal 81.0-99.0 [facility] Comment on above: Performed By: #### V ITAD, FETIBC, FERR #### [facility] [address] [place] [address] Dr. Andrey Hargrove PLT 215 103/ul Normal 150-450 [facility] Comment on above: Performed By: #### V ITAD, FETIBC, FERR #### [facility] [address] [place] [address] Dr. Andrey Hargrove RBC 4.12 106/ul Critically low 4.20-5.40 [facility] Comment on above: Performed By: #### V ITAD, FETIBC, FERR #### [facility] [address] [place] [address] Dr. Andrey Hargrove WBC 9.2 103/ul Normal 4.0-11.0 [facility] Comment on above: Performed By: #### V ITAD, FETIBC, FERR #### [facility] [address] [place] [address] Dr. Andrey Hargrove IRON AND TIBCon 08-23-2022 % SATURATION 15.4 % Normal [facility] Comment on above: Performed By: #### V ITAD, FETIBC, FERR #### [facility] [address] [place] [address] Dr. Andrey Hargrove Iron [Mass/Vol] 44.0 ug/dL Critically low 50.0-170.0 [facility] Comment on above: Performed By: #### V ITAD, FETIBC, FERR #### [facility] [address] [place] [address] Dr. Andrey Hargrove TIBC DIRECT 286.0 ug/dL Normal 250.0-450.0 [facility] Comment on above: Performed By: #### V ITAD, FETIBC, FERR #### [facility] [address] [place] [address] Dr. Andrey Hargrove MAGNESIUMon 08-23-2022 Magnesium [Mass/Vol] 2.1 mg/dL Normal 1.8-2.4 [facility] Comment on above: Performed By: #### L IPID, TSH, FT3 #### [facility] [address] [place] [address] Dr. Andrey Hargrove RENAL FUNCTION PANELon 08-23 Albumin [Mass/Vol] 3.3 g/dL Critically low 3.4-5.0 [facility] Comment on above: Performed By: #### L IPID, TSH, FT3 #### [facility] [address] [place] [address] Dr. Andrey Hargrove Calcium [Mass/Vol] 9.4 mg/dL Normal 8.5-10.1 [facility] Comment on above: Performed By: #### L IPID, TSH, FT3 #### [facility] [address] [place] [address] Dr. Andrey Hargrove Chloride [Moles/Vol] 103 mmol/L Normal 98-107 [facility] Comment on above: Performed By: #### L IPID, TSH, FT3 #### [facility] [address] [place] [address] Dr. Andrey Hargrove CO2 [Moles/Vol] 26.8 mmol/L Normal 21.0-32.0 [facility] Comment on above: Performed By: #### L IPID, TSH, FT3 #### [facility] [address] [place] [address] Dr. Andrey Hargrove Creatinine [Mass/Vol] 1.94 mg/dL Critically high 0.55-1.02 [facility] Comment on above: Performed By: #### L IPID, TSH, FT3 #### [facility] [address] [place] [address] Dr. Andrey Hargrove EGFR-AF GERMAN 31 mL/min/1.73m2 Critically low >=60 [facility] Comment on above: Performed By: #### L IPID, TSH, FT3 #### [facility] [address] [place] [address] Dr. Andrey Hargrove EGFR-NON AF GERMAN 25 mL/min/1.73m2 Critically low >=60 [facility] Comment on above: Performed By: #### L IPID, TSH, FT3 #### [facility] [address] [place] [address] Dr. Andrey Hargrove Glucose [Mass/Vol] 166 mg/dL Critically high 74-[address] [facility] Comment on above: Performed By: #### L IPID, TSH, FT3 #### [facility] [address] [place] [address] Dr. Andrey Hargrove Phosphate [Mass/Vol] 4.6 mg/dL Normal 2.6-4.7 [facility] Comment on above: Performed By: #### L IPID, TSH, FT3 #### [facility] [address] [place] [address] Dr. Andrey Hargrove Potassium [Moles/Vol] 4.3 mmol/L Normal 3.5-5.1 [facility] Comment on above: Performed By: #### L IPID, TSH, FT3 #### [facility] [address] [place] [address] Dr. Andrey Hargrove Sodium [Moles/Vol] 137 mmol/L Normal 136-145 [facility] Comment on above: Performed By: #### L IPID, TSH, FT3 #### [facility] [address] [place] [address] Dr. Andrey Hargrove Urea nitrogen [Mass/Vol] 39.0 mg/dL Critically high 7.0-18.0 [facility] Comment on above: Performed By: #### L IPID, TSH, FT3 #### [facility] [address] [place] [address] Dr. Andrey Hargrove UA RANDOM W/MICROSCOPICon BACTERIA NONE SEEN Normal NONE SEEN [facility] Comment on above: Performed By: #### V ITAD, FETIBC, FERR #### [facility] [address] [place] [address] Dr. Andrey Hargrove Bilirubin Ql (U) Negative Normal NEGATIVE [facility] Comment on above: Performed By: #### V ITAD, FETIBC, FERR #### [facility] [address] [place] [address] Dr. Andrey Hargrove CAST NONE SEEN Normal NONE SEEN [facility] Comment on above: Performed By: #### V ITAD, FETIBC, FERR #### [facility] [address] [place] [address] Dr. Andrey Hargrove Clarity (U) CLEAR Normal CLEAR [facility] Comment on above: Performed By: #### V ITAD, FETIBC, FERR #### [facility] [address] [place] [address] Dr. Andrey Hargrove Color (U) LT. YELLOW Normal YELLOW [facility] Comment on above: Performed By: #### V ITAD, FETIBC, FERR #### [facility] [address] [place] [address] Dr. Andrey Hargrove Crystals LM Nom (Urine sed) NONE SEEN Normal NONE SEEN [facility] Comment on above: Performed By: #### V ITAD, FETIBC, FERR #### [facility] [address] [place] [address] Dr. Andrey Hargrove Epithelial cells LM Ql (Urine sed) RARE Normal NONE SEEN /RARE [facility] Comment on above: Performed By: #### V ITAD, FETIBC, FERR #### [facility] [address] [place] [address] Dr. Andrey Hargrove Glucose Ql (U) Negative Normal NEGATIVE [facility] Comment on above: Performed By: #### V ITAD, FETIBC, FERR #### [facility] [address] [place] [address] Dr. Andrey Hargrove Hemoglobin Ql (U) Negative Normal NEGATIVE [facility] Comment on above: Performed By: #### V ITAD, FETIBC, FERR #### [facility] [address] [address] [address] Andrey Hargrove Ketones Ql (U) Negative Normal NEGATIVE [facility] Comment on above: Performed By: #### V ITAD, FETIBC, FERR #### [facility] [address] [place] [address] Dr. Andrey Hargrove LEUKOCYTES Negative Normal NEGATIVE [facility] Comment on above: Performed By: #### V ITAD, FETIBC, FERR #### [facility] [address] [place] [address] Dr. Andrey Hargrove MUCOUS NONE SEEN Normal NONE SEEN [facility] Comment on above: Performed By: #### V ITAD, FETIBC, FERR #### [facility] [address] [place] [address] Dr. Andrey Hargrove Nitrite Ql (U) Negative Normal NEGATIVE [facility] Comment on above: Performed By: #### V ITAD, FETIBC, FERR #### [facility] [address] [place] [address] Dr. Andrey Hargrove pH (U) 6.5 [pH] Normal 5-9 [facility] Comment on above: Performed By: #### V ITAD, FETIBC, FERR #### [facility] [address] [place] [address] Dr. Andrey Hargrove RBC NONE SEEN Abnormal 0-2 [facility] Comment on above: Performed By: #### V ITAD, FETIBC, FERR #### [facility] [address] [place] [address] Dr. Andrey Hargrove SPEC GRAVITY 1.010 Normal 1.005-<=1.02 5 [facility] Comment on above: Performed By: #### V ITAD, FETIBC, FERR #### [facility] [address] [place] [address] Dr. Andrey Hargrove UA PROTEIN 30 mg/dl Abnormal NEGATIVE/ TRACE [facility] Comment on above: Performed By: #### V ITAD, FETIBC, FERR #### [facility] [address] [place] [address] Dr. Andrey Hargrove Urobilinogen Qn (U) 0.2 {Kelly'U}/dL Normal 0.2 - 1. 0 [facility] Comment on above: Performed By: #### V ITAD, FETIBC, FERR #### [facility] [address] [place] [address] Dr. Andrey Hargrove WBC NONE SEEN Normal NONE SEEN [facility] Comment on above: Performed By: #### V ITAD, FETIBC, FERR #### [facility] [address] [place] [address] Dr. Andrey Hargrove URIC ACID SERUMon 08-23-2022 Urate [Mass/Vol] 5.8 mg/dL Normal 2.6-6.0 [facility] Comment on above: Performed By: #### L IPID, TSH, FT3 #### [facility] [address] [place] [address] Dr. Andrey Hargrove VITAMIN D 25 OHon 08-23-2022 VIT D 25-OH 69.0 ng/mL Normal [facility] Comment on above: Performed By: #### V ITAD, FETIBC, FERR #### [facility] [address] [place] [address] Dr. Andrey Hargrove VIT D RANGES SEE BELOW Normal [facility] Comment on above: Result Comment: <20 ng/mL Vit D deficient 20 - <30 ng/mL Vit D insufficient 30 - 100 ng/mL Vit D sufficient >100 ng/mL Potential Toxicity Performed By: #### V ITAD, FETIBC, FERR #### [facility] [address] [place] [address] Dr. Andrey Hargrove ECHOCARDIO M/2D COMPLETEon 1 08-14-2021 ECHOCARDIO M/2D COMPLETE Patient: CLAUDIA ESTRELLA Exam Date: 06/13/2022 : 1950 Gender:F Ordering : DR KARTHIK FISH M.D. Admission #: [id number] Family : Order #: [id number] CLICK HERE TO VIEW EXAM ECHOCARDIOGRAM REPORT [...] Fish M.D. on 06/14/2022 at 17:50 Normal [facility] BNPon 06-10-2022 Natriuretic peptide B (Bld) [Mass/Vol] 4197.0 pg/mL Critically high <=900.0 [facility] Comment on above: Performed By: #### L IPID, TSH, FT3 #### [facility] [address] [place] [address] Dr. Andrey Hargrove PROF CHEM 8 (BAS METB)on Anion gap [Moles/Vol] 10.4 mmol/L Normal [facility] Comment on above: Performed By: #### V ITAD, FETIBC, FERR #### [facility] [address] [address] [address] Andrey Hargrove Calcium [Mass/Vol] 9.4 mg/dL Normal 8.5-10.1 [facility] Comment on above: Performed By: #### V ITAD, FETIBC, FERR #### [facility] [address] [address] [address] Andrey Hargrove Chloride [Moles/Vol] 99 mmol/L Normal 98-107 [facility] Comment on above: Performed By: #### V ITAD, FETIBC, FERR #### [facility] [address] [address] [address] Andrey Hargrove CO2 [Moles/Vol] 33.8 mmol/L Critically high 21.0-32.0 [facility] Comment on above: Performed By: #### V ITAD, FETIBC, FERR #### [facility] [address] [place] [address] Dr. Andrey Hargrove Creatinine [Mass/Vol] 2.09 mg/dL Critically high 0.55-1.02 [facility] Comment on above: Performed By: #### V ITAD, FETIBC, FERR #### [facility] [address] [place] [address] Dr. Andrey Hargrove EGFR-AF GERMAN 28 mL/min/1.73m2 Critically low >=60 [facility] Comment on above: Performed By: #### V ITAD, FETIBC, FERR #### [facility] [address] [place] [address] Dr. Andrey Hargrove EGFR-NON AF GERMAN 23 mL/min/1.73m2 Critically low >=60 [facility] Comment on above: Performed By: #### V ITAD, FETIBC, FERR #### [facility] [address] [place] [address] Dr. Andrey Hargrove Glucose [Mass/Vol] 75 mg/dL Normal 74-106 [facility] Comment on above: Performed By: #### V ITAD, FETIBC, FERR #### [facility] [address] [place] [address] Dr. Andrey Hargrove Potassium [Moles/Vol] 3.2 mmol/L Critically low 3.5-5.1 [facility] Comment on above: Performed By: #### V ITAD, FETIBC, FERR #### [facility] [address] [address] [address] Andrey Hargrove Sodium [Moles/Vol] 140 mmol/L Normal 136-145 [facility] Comment on above: Performed By: #### V ITAD, FETIBC, FERR #### [facility] [address] [place] [address] Dr. Andrey Hargrove Urea nitrogen [Mass/Vol] 61.0 mg/dL Critically high 7.0-18.0 [facility] Comment on above: Performed By: #### V ITAD, FETIBC, FERR #### [facility] [address] [place] [address] Dr. Andrey Hargrove Urea nitrogen/Creatinine [Mass ratio] 29.2 mg/mg Normal [facility] Comment on above: Performed By: #### V ITAD, FETIBC, FERR #### [facility] [address] [place] [address] Dr. Andrey Hargrove BNPon 06-02-2022 Natriuretic peptide B (Bld) [Mass/Vol] 9365.0 pg/mL Critically high <=900.0 [facility] Comment on above: Performed By: #### V ITAD, FETIBC, FERR #### [facility] [address] [place] [address] Dr. Andrey Hargrove PROF CHEM 8 (BAS METB)on Anion gap [Moles/Vol] 10.7 mmol/L Normal [facility] Comment on above: Performed By: #### V ITAD, FETIBC, FERR #### [facility] [address] [place] [address] Dr. Andrey Hargrove Calcium [Mass/Vol] 9.1 mg/dL Normal 8.5-10.1 [facility] Comment on above: Performed By: #### V ITAD, FETIBC, FERR #### [facility] [address] [place] [address] Dr. Andrey Hargrove Chloride [Moles/Vol] 98 mmol/L Normal 98-107 [facility] Comment on above: Performed By: #### V ITAD, FETIBC, FERR #### [facility] [address] [place] [address] Dr. Andrey Hargrove CO2 [Moles/Vol] 29.4 mmol/L Normal 21.0-32.0 [facility] Comment on above: Performed By: #### V ITAD, FETIBC, FERR #### [facility] [address] [place] [address] Dr. Andrey Hargrove Creatinine [Mass/Vol] 2.44 mg/dL Critically high 0.55-1.02 [facility] Comment on above: Performed By: #### V ITAD, FETIBC, FERR #### [facility] [address] [place] [address] Dr. Andrey Hargrove EGFR-AF GERMAN 24 mL/min/1.73m2 Critically low >=60 [facility] Comment on above: Performed By: #### V ITAD, FETIBC, FERR #### [facility] [address] [place] [address] Dr. Andrey Hargrove EGFR-NON AF GERMAN 20 mL/min/1.73m2 Critically low >=60 [facility] Comment on above: Performed By: #### V ITAD, FETIBC, FERR #### [facility] [address] [place] [address] Dr. Andrey Hargrove Glucose [Mass/Vol] 135 mg/dL Critically high 74-[address] [facility] Comment on above: Performed By: #### V ITAD, FETIBC, FERR #### [facility] [address] [place] [address] Dr. Andrey Hargrove Potassium [Moles/Vol] 4.1 mmol/L Normal 3.5-5.1 [facility] Comment on above: Performed By: #### V ITAD, FETIBC, FERR #### [facility] [address] [place] [address] Dr. Andrey Hargrove Sodium [Moles/Vol] 134 mmol/L Critically low 136-145 [facility] Comment on above: Performed By: #### V ITAD, FETIBC, FERR #### [facility] [address] [address] [address] Andrey Hargrove Urea nitrogen [Mass/Vol] 81.0 mg/dL Critically high 7.0-18.0 [facility] Comment on above: Performed By: #### V ITAD, FETIBC, FERR #### [facility] [address] [address] [address] Andrey Hargrove Urea nitrogen/Creatinine [Mass ratio] 33.2 mg/mg Normal [facility] Comment on above: Performed By: #### V ITAD, FETIBC, FERR #### [facility] [address] [address] [address] Andrey Hargrove XR ELBOW RT MIN [...] BETSY LAZARO Date: 2022-06-01 17:24 Normal [facility] RENAL FUNCTION PANELon 05-27 Albumin [Mass/Vol] 3.4 g/dL Normal 3.4-5.0 [facility] Comment on above: Performed By: #### L IPID, TSH, FT3 #### [facility] [address] [address] [address] Andrey Hargrove Calcium [Mass/Vol] 9.1 mg/dL Normal 8.5-10.1 [facility] Comment on above: Performed By: #### L IPID, TSH, FT3 #### [facility] [address] [address] [address] Andrey Hargrove Chloride [Moles/Vol] 99 mmol/L Normal 98-107 [facility] Comment on above: Performed By: #### L IPID, TSH, FT3 #### [facility] [address] [address] [address] Andrey Hargrove CO2 [Moles/Vol] 30.9 mmol/L Normal 21.0-32.0 [facility] Comment on above: Performed By: #### L IPID, TSH, FT3 #### [facility] [address] [address] [address] Andrey Hargrove Creatinine [Mass/Vol] 2.24 mg/dL Critically high 0.55-1.02 [facility] Comment on above: Performed By: #### L IPID, TSH, FT3 #### [facility] [address] [address] [address] Andrey Hargrove EGFR-AF GERMAN 26 mL/min/1.73m2 Critically low >=60 [facility] Comment on above: Performed By: #### L IPID, TSH, FT3 #### [facility] [address] [address] [address] Andrey Hargrove EGFR-NON AF GERMAN 22 mL/min/1.73m2 Critically low >=60 [facility] Comment on above: Performed By: #### L IPID, TSH, FT3 #### [facility] [address] [address] [address] Andrey Hargrove Glucose [Mass/Vol] 94 mg/dL Normal 74-106 [facility] Comment on above: Performed By: #### L IPID, TSH, FT3 #### [facility] [address] [address] [address] Andrey Hargrove Phosphate [Mass/Vol] 4.7 mg/dL Normal 2.6-4.7 [facility] Comment on above: Performed By: #### L IPID, TSH, FT3 #### [facility] [address] [address] [address] Andrey Hargrove Potassium [Moles/Vol] 3.5 mmol/L Normal 3.5-5.1 [facility] Comment on above: Performed By: #### L IPID, TSH, FT3 #### [facility] [address] [address] [address] Andrey Hargrove Sodium [Moles/Vol] 136 mmol/L Normal 136-145 [facility] Comment on above: Performed By: #### L IPID, TSH, FT3 #### [facility] [address] [place] [address] Dr. Andrey Hargrove Urea nitrogen [Mass/Vol] 72.0 mg/dL Critically high 7.0-18.0 [facility] Comment on above: Performed By: #### L IPID, TSH, FT3 #### [facility] [address] [place] [address] Dr. Andrey Hargrove PTH INTACTon 05-24-2022 PTH, Intact 24 pg/mL Normal 15-65 [facility] Comment on above: Performed By: #### L IPID, TSH, FT3 #### [facility] [address] [place] [address] Dr. Andrey Hargrove FERRITINon 05-23-2022 Ferritin [Mass/Vol] 190.0 ng/mL Normal 8.0-252.0 [facility] Comment on above: Performed By: #### L IPID, TSH, FT3 #### [facility] [address] [place] [address] Dr. Andrey Hargrove FREE T3on 05-23-2022 FREE T3 1.96 pg/mlL Critically low 2.18-3.98 [facility] Comment on above: Performed By: #### L IPID, TSH, FT3 #### [facility] [address] [place] [address] Dr. Andrey Hargrove FREE T4on 05-23-2022 Free T4 [Mass/Vol] 1.33 ng/dL Normal 0.76-1.46 [facility] Comment on above: Performed By: #### L IPID, TSH, FT3 #### [facility] [address] [place] [address] Dr. Andrey Hargrove HEMOGRAM AND PLATELon 2021 Hematocrit (Bld) [Volume fraction] 30.6 % Critically low 36.0-48.0 [facility] Comment on above: Performed By: #### V ITAD, FETIBC, FERR #### [facility] [address] [place] [address] Dr. Andrey Hargrove Hemoglobin (Bld) [Mass/Vol] 10.4 g/dL Critically low 12.0-16.0 [facility] Comment on above: Performed By: #### V ITAD, FETIBC, FERR #### [facility] [address] [place] [address] Dr. Andrey Hargrove MCH (RBC) [Entitic mass] 28.6 pg Normal 26.7-34.0 [facility] Comment on above: Performed By: #### V ITAD, FETIBC, FERR #### [facility] [address] [place] [address] Dr. Andrey Hargrove MCHC (RBC) [Mass/Vol] 34.0 g/dL Normal 29.9-35.2 [facility] Comment on above: Performed By: #### V ITAD, FETIBC, FERR #### [facility] [address] [place] [address] Dr. Andrey Hargrove MCV (RBC) [Entitic vol] 84.1 fL Normal 81.0-99.0 [facility] Comment on above: Performed By: #### V ITAD, FETIBC, FERR #### [facility] [address] [place] [address] Dr. Andrey Hargrove PLT 179 103/ul Normal 150-450 [facility] Comment on above: Performed By: #### V ITAD, FETIBC, FERR #### [facility] [address] [place] [address] Dr. Andrey Hargrove RBC 3.64 106/ul Critically low 4.20-5.40 [facility] Comment on above: Performed By: #### V ITAD, FETIBC, FERR #### [facility] [address] [place] [address] Dr. Andrey Hargrove WBC 9.5 103/ul Normal 4.0-11.0 [facility] Comment on above: Performed By: #### V ITAD, FETIBC, FERR #### [facility] [address] [place] [address] Dr. Andrey Hargrove IRON AND TIBCon 05-23-2022 % SATURATION 15.9 % Normal [facility] Comment on above: Performed By: #### L IPID, TSH, FT3 #### [facility] [address] [place] [address] Dr. Andrey Hargrove Iron [Mass/Vol] 44.0 ug/dL Critically low 50.0-170.0 [facility] Comment on above: Performed By: #### L IPID, TSH, FT3 #### [facility] [address] [place] [address] Dr. Andrey Hargrove TIBC DIRECT 276.0 ug/dL Normal 250.0-450.0 [facility] Comment on above: Performed By: #### L IPID, TSH, FT3 #### [facility] [address] [place] [address] Dr. Andrey Hargrove LIPID PROFILEon 05-23-2022 CHOL-HDL RATIO NORM SEE BELOW Normal [facility] Comment on above: Result Comment: 3.3 - 4.4 LOW RISK 4.4 - 7.1 AVERAGE RISK 7.1 - 11.0 MODERATE RISK >11.0 HIGH RISK Performed By: #### L IPID, TSH, FT3 #### [facility] [address] [place] [address] Dr. Andrey Hargrove Cholesterol [Mass/Vol] 129 mg/dL Normal <=200 [facility] Comment on above: Performed By: #### L IPID, TSH, FT3 #### [facility] [address] [place] [address] Dr. Andrye Hargrove Cholesterol in HDL [Mass/Vol] 55 mg/dL Normal 40-60 [facility] Comment on above: Performed By: #### L IPID, TSH, FT3 #### [facility] [address] [address] [address] Andrey Hargrove Cholesterol in LDL [Mass/Vol] 59.6 mg/dL Normal [facility] Comment on above: Performed By: #### L IPID, TSH, FT3 #### [facility] [address] [address] [address] Andrey Hargrove Cholesterol.total/Cho lesterol in HDL [Mass ratio] 2.3 {ratio} Normal [facility] Comment on above: Performed By: #### L IPID, TSH, FT3 #### [facility] [address] [address] [address] Andrey Hargrvoe HDL NORMAL > or = 60 mg/dl - LO W CARDIOVASCULAR RISK <40 mg/dl - HIGH CARDIOVASCULAR RISK Normal [facility] Comment on above: Performed By: #### L IPID, TSH, FT3 #### [facility] [address] [place] [address] Dr. Andrey Hargrove LDL CALC NORMAL SEE BELOW Normal [facility] Comment on above: Result Comment: <100 mg/dl OPTIMAL 100 - 129 mg/dl NEAR OR ABOVE OPTIMAL 130 - 159 mg/dl BORDERLINE HIGH 160 - 189 mg/dl HIGH >190 mg/dl VERY HIGH Performed By: #### L IPID, TSH, FT3 #### [facility] [address] [address] [address] Andrey Hargrove Triglyceride [Mass/Vol] 72 mg/dL Normal <=150 [facility] Comment on above: Performed By: #### L IPID, TSH, FT3 #### [facility] [address] [address] [address] Andrey Hargrove VLDL CALC 14.4 mg/dL Normal [facility] Comment on above: Performed By: #### L IPID, TSH, FT3 #### [facility] [address] [place] [address] Dr. Andrey Hargrove MAGNESIUMon 05-23-2022 Magnesium [Mass/Vol] 2.2 mg/dL Normal 1.8-2.4 [facility] Comment on above: Performed By: #### L IPID, TSH, FT3 #### [facility] [address] [place] [address] Dr. Andrey Hargrove RENAL FUNCTION PANELon 05-23 Albumin [Mass/Vol] 3.5 g/dL Normal 3.4-5.0 [facility] Comment on above: Performed By: #### L IPID, TSH, FT3 #### [facility] [address] [place] [address] Dr. Andrey Hargrove Calcium [Mass/Vol] 10.0 mg/dL Normal 8.5-10.1 [facility] Comment on above: Performed By: #### L IPID, TSH, FT3 #### [facility] [address] [place] [address] Dr. Andrey Hargrove Chloride [Moles/Vol] 98 mmol/L Normal 98-107 [facility] Comment on above: Performed By: #### L IPID, TSH, FT3 #### [facility] [address] [place] [address] Dr. Andrey Hargrove CO2 [Moles/Vol] 34.3 mmol/L Critically high 21.0-32.0 [facility] Comment on above: Performed By: #### L IPID, TSH, FT3 #### [facility] [address] [place] [address] Dr. Andrey Hargrove Creatinine [Mass/Vol] 2.24 mg/dL Critically high 0.55-1.02 [facility] Comment on above: Performed By: #### L IPID, TSH, FT3 #### [facility] [address] [place] [address] Dr. Andrey Hargrove EGFR-AF GERMAN 26 mL/min/1.73m2 Critically low >=60 [facility] Comment on above: Performed By: #### L IPID, TSH, FT3 #### [facility] [address] [place] [address] Dr. Andrey Hargrove EGFR-NON AF GERMAN 22 mL/min/1.73m2 Critically low >=60 [facility] Comment on above: Performed By: #### L IPID, TSH, FT3 #### [facility] [address] [address] [address] Andrey Hargrove Glucose [Mass/Vol] 123 mg/dL Critically high 74-106 [facility] Comment on above: Performed By: #### L IPID, TSH, FT3 #### [facility] [address] [place] [address] Dr. Andrey Hargrove Phosphate [Mass/Vol] 5.2 mg/dL Critically high 2.6-4.7 [facility] Comment on above: Performed By: #### L IPID, TSH, FT3 #### [facility] [address] [place] [address] Dr. Andrey Hargrove Potassium [Moles/Vol] 3.0 mmol/L Critically low 3.5-5.1 [facility] Comment on above: Performed By: #### L IPID, TSH, FT3 #### [facility] [address] [address] [address] Andrey Hargrove Sodium [Moles/Vol] 137 mmol/L Normal 136-145 [facility] Comment on above: Performed By: #### L IPID, TSH, FT3 #### [facility] [address] [place] [address] Dr. Andrey Hargrove Urea nitrogen [Mass/Vol] 80.0 mg/dL Critically high 7.0-18.0 [facility] Comment on above: Performed By: #### L IPID, TSH, FT3 #### [facility] [address] [place] [address] Dr. Andrey Hargrove TSHon 05-23-2022 TSH 4.652 uIU/mL Critically high 0.358-3.740 [facility] Comment on above: Performed By: #### L IPID, TSH, FT3 #### [facility] [address] [place] [address] Dr. Andrey Hargrove UA RANDOM W/MICROSCOPICon BACTERIA NONE SEEN Normal NONE SEEN [facility] Comment on above: Performed By: #### V ITAD, FETIBC, FERR #### [facility] [address] [place] [address] Dr. Andrey Hargrove Bilirubin Ql (U) Negative Normal NEGATIVE [facility] Comment on above: Performed By: #### V ITAD, FETIBC, FERR #### [facility] [address] [address] [address] Andrey Hargrove CAST NONE SEEN Normal NONE SEEN [facility] Comment on above: Performed By: #### V ITAD, FETIBC, FERR #### [facility] [address] [place] [address] Dr. Andrey Hargrove Clarity (U) CLEAR Normal CLEAR [facility] Comment on above: Performed By: #### V ITAD, FETIBC, FERR #### [facility] [address] [place] [address] Dr. Andrey Hargrove Color (U) LT. YELLOW Normal YELLOW [facility] Comment on above: Performed By: #### V ITAD, FETIBC, FERR #### [facility] [address] [place] [address] Dr. Andrey Hargrove Crystals LM Nom (Urine sed) NONE SEEN Normal NONE SEEN [facility] Comment on above: Performed By: #### V ITAD, FETIBC, FERR #### [facility] [address] [place] [address] Dr. Andrey Hargrove Epithelial cells LM Ql (Urine sed) FEW Abnormal NONE SEEN /RARE [facility] Comment on above: Performed By: #### V ITAD, FETIBC, FERR #### [facility] [address] [place] [address] Dr. Andrey Hargrove Glucose Ql (U) Negative Normal NEGATIVE [facility] Comment on above: Performed By: #### V ITAD, FETIBC, FERR #### [facility] [address] [place] [address] Dr. Andrey Hargrove Hemoglobin Ql (U) TRACE-INTACT Abnormal NEGATIVE The [facility] Comment on above: Performed By: #### V ITAD, FETIBC, FERR #### [facility] [address] [place] [address] Dr. Andrey Hargrove Ketones Ql (U) Negative Normal NEGATIVE [facility] Comment on above: Performed By: #### V ITAD, FETIBC, FERR #### [facility] [address] [place] [address] Dr. Andrey Hargrove LEUKOCYTES SMALL Abnormal NEGATIVE [facility] Comment on above: Performed By: #### V ITAD, FETIBC, FERR #### [facility] [address] [place] [address] Dr. Andrey Hargrove MUCOUS NONE SEEN Normal NONE SEEN [facility] Comment on above: Performed By: #### V ITAD, FETIBC, FERR #### [facility] [address] [place] [address] Dr. Andrey Hargrove Nitrite Ql (U) Negative Normal NEGATIVE [facility] Comment on above: Performed By: #### V ITAD, FETIBC, FERR #### [facility] [address] [place] [address] Dr. Andrey Hargrove pH (U) 5.5 [pH] Normal 5-9 [facility] Comment on above: Performed By: #### V ITAD, FETIBC, FERR #### [facility] [address] [place] [address] Dr. Andrey Hagrrove RBC 0-2 Normal 0-2 [facility] Comment on above: Performed By: #### V ITAD, FETIBC, FERR #### [facility] [address] [place] [address] Dr. Andrey Hargrove SPEC GRAVITY 1.010 Normal 1.005-<=1.02 5 [facility] Comment on above: Performed By: #### V ITAD, FETIBC, FERR #### [facility] [address] [place] [address] Dr. Andrey Hargrove UA PROTEIN TRACE Normal NEGATIVE/ TRACE [facility] Comment on above: Performed By: #### V ITAD, FETIBC, FERR #### [facility] [address] [place] [address] Dr. Andrey Hargrove Urobilinogen Qn (U) 0.2 {Kelly'U}/dL Normal 0.2 - 1. 0 [facility] Comment on above: Performed By: #### V ITAD, FETIBC, FERR #### [facility] [address] [place] [address] Dr. Andrey Hargrove WBC 0-2 Abnormal NONE SEEN [facility] Comment on above: Performed By: #### V ITAD, FETIBC, FERR #### [facility] [address] [place] [address] Dr. Andrey Hargrove URIC ACID SERUMon 05-23-2022 Urate [Mass/Vol] 7.4 mg/dL Critically high 2.6-6.0 [facility] Comment on above: Performed By: #### L IPID, TSH, FT3 #### [facility] [address] [place] [address] Dr. Andrey Hargrove URINE T PROTEIN CREAT RATIOo n 05-23-2022 Protein (U) [Mass/Vol] 39.9 mg/dL Critically high <=12.0 [facility] Comment on above: Performed By: #### U RTPCR #### [facility] [address] [place] [address] Dr. Andrey Hargrove UR PROT CREAT RAT 0.64 Normal [facility] Comment on above: Performed By: #### U RTPCR #### [facility] [address] [place] [address] Dr. Andrey Hargrove URINE CREAT 62.30 mg/dL Normal 20.00-300.00 [facility] Comment on above: Performed By: #### U RTPCR #### [facility] [address] [place] [address] Dr. Andrey Hargrove VITAMIN D 25 OHon 05-23-2022 VIT D 25-OH 90.7 ng/mL Normal [facility] Comment on above: Performed By: #### L IPID, TSH, FT3 #### [facility] [address] [place] [address] Dr. Andrey Hargrove VIT D RANGES SEE BELOW Normal [facility] Comment on above: Result Comment: <20 ng/mL Vit D deficient 20 - <30 ng/mL Vit D insufficient 30 - 100 ng/mL Vit D sufficient >100 ng/mL Potential Toxicity Performed By: #### L IPID, TSH, FT3 #### [facility] [address] [place] [address] Dr. Andrey Hargrove MAGNESIUMon 05-14-2022 Magnesium [Mass/Vol] 2.1 mg/dL Normal 1.8-2.4 [facility] Comment on above: Performed By: #### L IPID, TSH, FT3 #### [facility] [address] [address] [address] Andrey Hargrove PROF CHEM 8 (BAS METB)on Anion gap [Moles/Vol] 12.0 mmol/L Normal [facility] Comment on above: Performed By: #### L IPID, TSH, FT3 #### [facility] [address] [place] [address] Dr. Andrey Hargrove Calcium [Mass/Vol] 9.0 mg/dL Normal 8.5-10.1 [facility] Comment on above: Performed By: #### L IPID, TSH, FT3 #### [facility] [address] [address] [address] Andrey Hargrove Chloride [Moles/Vol] 97 mmol/L Critically low 98-107 [facility] Comment on above: Performed By: #### L IPID, TSH, FT3 #### [facility] [address] [place] [address] Dr. Andrey Hargrove CO2 [Moles/Vol] 30.4 mmol/L Normal 21.0-32.0 [facility] Comment on above: Performed By: #### L IPID, TSH, FT3 #### [facility] [address] [address] [address] Andrey Hargrove Creatinine [Mass/Vol] 2.28 mg/dL Critically high 0.55-1.02 [facility] Comment on above: Performed By: #### L IPID, TSH, FT3 #### [facility] [address] [address] [address] Andrey Hargrove EGFR-AF GERMAN 26 mL/min/1.73m2 Critically low >=60 [facility] Comment on above: Performed By: #### L IPID, TSH, FT3 #### [facility] [address] [address] [address] Andrey Hargrove EGFR-NON AF GERMAN 21 mL/min/1.73m2 Critically low >=60 [facility] Comment on above: Performed By: #### L IPID, TSH, FT3 #### [facility] [address] [address] [address] Andrey Hargrove Glucose [Mass/Vol] 190 mg/dL Critically high 74-[address] [facility] Comment on above: Performed By: #### L IPID, TSH, FT3 #### [facility] [address] [place] [address] Dr. Andrey Hargrove Potassium [Moles/Vol] 3.4 mmol/L Critically low 3.5-5.1 [facility] Comment on above: Performed By: #### L IPID, TSH, FT3 #### [facility] [address] [place] [address] Dr. Andrey Hargrove Sodium [Moles/Vol] 136 mmol/L Normal 136-145 [facility] Comment on above: Performed By: #### L IPID, TSH, FT3 #### [facility] [address] [place] [address] Dr. Andrey Hargrove Urea nitrogen [Mass/Vol] 73.0 mg/dL Critically high 7.0-18.0 [facility] Comment on above: Performed By: #### L IPID, TSH, FT3 #### [facility] [address] [place] [address] Dr. Andrey Hargrove Urea nitrogen/Creatinine [Mass ratio] 32.0 mg/mg Normal [facility] Comment on above: Performed By: #### L IPID, TSH, FT3 #### [facility] [address] [place] [address] Dr. Andrey Hargrove XR CHEST 2 Von [...] RENETTA RENEE Date: 2022-05-12 09:12 Normal [facility] BNPon 05-11-2022 Natriuretic peptide B (Bld) [Mass/Vol] 7074.0 pg/mL Critically high <=900.0 [facility] Comment on above: Performed By: #### V ITAD, FETIBC, FERR #### [facility] [address] [address] [address] Andrey Hargrove CBC AUTO DIFFon 05-11-2022 BASO # 0.1 103/ul Normal 0.0-0.1 [facility] Comment on above: Performed By: #### V ITAD, FETIBC, FERR #### [facility] [address] [address] [address] Andrey Hargrove Basophils/100 WBC (Bld) 0.7 % Normal 0.2-2.0 [facility] Comment on above: Performed By: #### V ITAD, FETIBC, FERR #### [facility] [address] [address] [address] Andrey Hargrove EO # 0.3 103/ul Normal 0.0-0.7 [facility] Comment on above: Performed By: #### V ITAD, FETIBC, FERR #### [facility] [address] [address] [address] Andrey Hargrove Eosinophils/100 WBC (Bld) 3.8 % Normal 0.9-7.0 [facility] Comment on above: Performed By: #### V ITAD, FETIBC, FERR #### [facility] [address] [address] [address] Andrey Hargrove Erythrocyte distribution width (RBC) [Ratio] 14.7 % Normal 11.0-15.0 [facility] Comment on above: Performed By: #### V ITAD, FETIBC, FERR #### [facility] [address] [place] [address] Dr. Andrey Hargrove Hematocrit (Bld) [Volume fraction] 29.6 % Critically low 36.0-48.0 [facility] Comment on above: Performed By: #### V ITAD, FETIBC, FERR #### [facility] [address] [place] [address] Dr. Andrey Hargrove Hemoglobin (Bld) [Mass/Vol] 9.9 g/dL Critically low 12.0-16.0 [facility] Comment on above: Performed By: #### V ITAD, FETIBC, FERR #### [facility] [address] [place] [address] Dr. Andrey Hargrove IG # 0.03 10e3/ul Normal 0.00-0.03 [facility] Comment on above: Performed By: #### V ITAD, FETIBC, FERR #### [facility] [address] [place] [address] Dr. Andrey Hargrove IG % 0.4 % Normal 0.0-0.5 [facility] Comment on above: Performed By: #### V ITAD, FETIBC, FERR #### [facility] [address] [place] [address] Dr. Andrey Hargrove LYMPH # 1.3 103/ul Normal 1.2-3.8 [facility] Comment on above: Performed By: #### V ITAD, FETIBC, FERR #### [facility] [address] [place] [address] Dr. Andrey Hargrove Lymphocytes/100 WBC (Bld) 16.3 % Critically low 20.5-60.0 [facility] Comment on above: Performed By: #### V ITAD, FETIBC, FERR #### [facility] [address] [place] [address] Dr. Andrey Hargrove MANUAL DIFF REQ NO Normal The [facility] Comment on above: Performed By: #### V ITAD, FETIBC, FERR #### [facility] [address] [place] [address] Dr. Andrey Hargrove MCH (RBC) [Entitic mass] 28.7 pg Normal 26.7-34.0 [facility] Comment on above: Performed By: #### V ITAD, FETIBC, FERR #### [facility] [address] [place] [address] Dr. Andrey Hargrove MCHC (RBC) [Mass/Vol] 33.4 g/dL Normal 29.9-35.2 [facility] Comment on above: Performed By: #### V ITAD, FETIBC, FERR #### [facility] [address] [place] [address] Dr. Andrey Hargrove MCV (RBC) [Entitic vol] 85.8 fL Normal 81.0-99.0 [facility] Comment on above: Performed By: #### V ITAD, FETIBC, FERR #### [facility] [address] [place] [address] Dr. Andrey Hargrove MONO # 0.7 103/ul Normal 0.3-0.8 [facility] Comment on above: Performed By: #### V ITAD, FETIBC, FERR #### [facility] [address] [place] [address] Dr. Andrey Hargrove Monocytes/100 WBC (Bld) 8.7 % Normal 1.7-12.0 [facility] Comment on above: Performed By: #### V ITAD, FETIBC, FERR #### [facility] [address] [place] [address] Dr. Andrey Hargrove NEUT # 5.4 103/ul Normal 1.4-6.5 [facility] Comment on above: Performed By: #### V ITAD, FETIBC, FERR #### [facility] [address] [place] [address] Dr. Andrey Hargrove Neutrophils/100 WBC (Bld) 70.1 % Normal 43.0-75.0 [facility] Comment on above: Performed By: #### V ITAD, FETIBC, FERR #### [facility] [address] [place] [address] Dr. Andrey Hargrove Platelet mean volume (Bld) [Entitic vol] 10.9 fL Normal 9.5-13.5 [facility] Comment on above: Performed By: #### V ITAD, FETIBC, FERR #### [facility] [address] [place] [address] Dr. Andrey Hargrove PLT 171 103/ul Normal 150-450 [facility] Comment on above: Performed By: #### V ITAD, FETIBC, FERR #### [facility] [address] [place] [address] Dr. Andrey Hargrove RBC 3.45 106/ul Critically low 4.20-5.40 [facility] Comment on above: Performed By: #### V ITAD, FETIBC, FERR #### [facility] [address] [place] [address] Dr. Andrey Hargrove WBC 7.7 103/ul Normal 4.0-11.0 [facility] Comment on above: Performed By: #### V ITAD, FETIBC, FERR #### [facility] [address] [place] [address] Dr. Andrey Hargrove PROF CHEM 8 (BAS METB)on Anion gap [Moles/Vol] 9.8 mmol/L Normal [facility] Comment on above: Performed By: #### V ITAD, FETIBC, FERR #### [facility] [address] [place] [address] Dr. Andrey Hargrove Calcium [Mass/Vol] 9.1 mg/dL Normal 8.5-10.1 [facility] Comment on above: Performed By: #### V ITAD, FETIBC, FERR #### [facility] [address] [place] [address] Dr. Andrey Hargrove Chloride [Moles/Vol] 96 mmol/L Critically low 98-107 [facility] Comment on above: Performed By: #### V ITAD, FETIBC, FERR #### [facility] [address] [place] [address] Dr. Andrey Hargrove CO2 [Moles/Vol] 30.8 mmol/L Normal 21.0-32.0 [facility] Comment on above: Performed By: #### V ITAD, FETIBC, FERR #### [facility] [address] [address] [address] Andrey Hargrove Creatinine [Mass/Vol] 2.28 mg/dL Critically high 0.55-1.02 [facility] Comment on above: Performed By: #### V ITAD, FETIBC, FERR #### [facility] [address] [place] [address] Dr. Andrey Hargrove EGFR-AF GERMAN 26 mL/min/1.73m2 Critically low >=60 [facility] Comment on above: Performed By: #### V ITAD, FETIBC, FERR #### [facility] [address] [place] [address] Dr. Andrey Hargrove EGFR-NON AF GERMAN 21 mL/min/1.73m2 Critically low >=60 [facility] Comment on above: Performed By: #### V ITAD, FETIBC, FERR #### [facility] [address] [address] [address] Andrey Hargrove Glucose [Mass/Vol] 158 mg/dL Critically high 74-[address] [facility] Comment on above: Performed By: #### V ITAD, FETIBC, FERR #### [facility] [address] [place] [address] Dr. Andrey Hargrove Potassium [Moles/Vol] 3.6 mmol/L Normal 3.5-5.1 [facility] Comment on above: Performed By: #### V ITAD, FETIBC, FERR #### [facility] [address] [address] [address] Andrey Hargrove Sodium [Moles/Vol] 133 mmol/L Critically low 136-145 [facility] Comment on above: Performed By: #### V ITAD, FETIBC, FERR #### [facility] [address] [address] [address] Andrey Hargrove Urea nitrogen [Mass/Vol] 66.0 mg/dL Critically high 7.0-18.0 [facility] Comment on above: Performed By: #### V ITAD, FETIBC, FERR #### [facility] [address] [place] [address] Dr. Andrey Hargrove Urea nitrogen/Creatinine [Mass ratio] 28.9 mg/mg Normal [facility] Comment on above: Performed By: #### V ITAD, FETIBC, FERR #### [facility] [address] [place] [address] Dr. Andrey Hargrove MAGNESIUMon 03-17-2022 Magnesium [Mass/Vol] 1.9 mg/dL Normal 1.8-2.4 [facility] Comment on above: Performed By: #### V ITAD, FETIBC, FERR #### [facility] [address] [place] [address] Dr. Andrey Hargrove PROF CHEM 8 (BAS METB)on Anion gap [Moles/Vol] 11.7 mmol/L Normal [facility] Comment on above: Performed By: #### V ITAD, FETIBC, FERR #### [facility] [address] [place] [address] Dr. Andrey Hargrove Calcium [Mass/Vol] 9.4 mg/dL Normal 8.5-10.1 [facility] Comment on above: Performed By: #### V ITAD, FETIBC, FERR #### [facility] [address] [place] [address] Dr. Andrey Hargrove Chloride [Moles/Vol] 97 mmol/L Critically low 98-107 [facility] Comment on above: Performed By: #### V ITAD, FETIBC, FERR #### [facility] [address] [place] [address] Dr. Andrey Hargrove CO2 [Moles/Vol] 29.0 mmol/L Normal 21.0-32.0 [facility] Comment on above: Performed By: #### V ITAD, FETIBC, FERR #### [facility] [address] [place] [address] Dr. Andrey Hargrove Creatinine [Mass/Vol] 2.02 mg/dL Critically high 0.55-1.02 [facility] Comment on above: Performed By: #### V ITAD, FETIBC, FERR #### [facility] [address] [place] [address] Dr. Andrey Hargrove EGFR-AF GERMAN 30 mL/min/1.73m2 Critically low >=60 [facility] Comment on above: Performed By: #### V ITAD, FETIBC, FERR #### [facility] [address] [place] [address] Dr. Andrey Hargrove EGFR-NON AF GERMAN 24 mL/min/1.73m2 Critically low >=60 [facility] Comment on above: Performed By: #### V ITAD, FETIBC, FERR #### [facility] [address] [place] [address] Dr. Andrey Hargrove Glucose [Mass/Vol] 204 mg/dL Critically high 74-106 T [facility] Comment on above: Performed By: #### V ITAD, FETIBC, FERR #### [facility] [address] [place] [address] Dr. Andrey Hargrove Potassium [Moles/Vol] 3.7 mmol/L Normal 3.5-5.1 [facility] Comment on above: Performed By: #### V ITAD, FETIBC, FERR #### [facility] [address] [place] [address] Dr. Andrey Hargrove Sodium [Moles/Vol] 134 mmol/L Critically low 136-145 [facility] Comment on above: Performed By: #### V ITAD, FETIBC, FERR #### [facility] [address] [place] [address] Dr. Andrey Hargrove Urea nitrogen [Mass/Vol] 60.0 mg/dL Critically high 7.0-18.0 [facility] Comment on above: Performed By: #### V ITAD, FETIBC, FERR #### [facility] [address] [place] [address] Dr. Andrey Hargrove Urea nitrogen/Creatinine [Mass ratio] 29.7 mg/mg Normal [facility] Comment on above: Performed By: #### V ITAD, FETIBC, FERR #### [facility] [address] [place] [address] Dr. Andrey Hargrove PTH INTACTon 01-18-2022 PTH, Intact 51 pg/mL Normal 15-65 [facility] Comment on above: Performed By: #### L IPID, TSH, FT3 #### [facility] [address] [place] [address] Dr. Andrey Hargrove FERRITINon 01-17-2022 Ferritin [Mass/Vol] 133.0 ng/mL Normal 8.0-252.0 [facility] Comment on above: Performed By: #### V ITAD, FETIBC, FERR #### [facility] [address] [place] [address] Dr. Andrey Hargrove HEMOGRAM AND PLATELon 2021 Hematocrit (Bld) [Volume fraction] 31.7 % Critically low 36.0-48.0 [facility] Comment on above: Performed By: #### V ITAD, FETIBC, FERR #### [facility] [address] [place] [address] Dr. Andrey Hargrove Hemoglobin (Bld) [Mass/Vol] 10.2 g/dL Critically low 12.0-16.0 [facility] Comment on above: Performed By: #### V ITAD, FETIBC, FERR #### [facility] [address] [place] [address] Dr. Andrey Hargrove MCH (RBC) [Entitic mass] 28.3 pg Normal 26.7-34.0 [facility] Comment on above: Performed By: #### V ITAD, FETIBC, FERR #### [facility] [address] [place] [address] Dr. Andrey Hargrove MCHC (RBC) [Mass/Vol] 32.2 g/dL Normal 29.9-35.2 [facility] Comment on above: Performed By: #### V ITAD, FETIBC, FERR #### [facility] [address] [place] [address] Dr. Andrey Hargrove MCV (RBC) [Entitic vol] 88.1 fL Normal 81.0-99.0 [facility] Comment on above: Performed By: #### V ITAD, FETIBC, FERR #### [facility] [address] [place] [address] Dr. Andrey Hargrove PLT 198 103/ul Normal 150-450 [facility] Comment on above: Performed By: #### V ITAD, FETIBC, FERR #### [facility] [address] [place] [address] Dr. Andrey Hargroev RBC 3.60 106/ul Critically low 4.20-5.40 [facility] Comment on above: Performed By: #### V ITAD, FETIBC, FERR #### [facility] [address] [place] [address] Dr. Andrey Hargrove WBC 8.5 103/ul Normal 4.0-11.0 [facility] Comment on above: Performed By: #### V ITAD, FETIBC, FERR #### [facility] [address] [place] [address] Dr. Andrey Hargrove IRON AND TIBCon 01-17-2022 % SATURATION 17.8 % Normal [facility] Comment on above: Performed By: #### V ITAD, FETIBC, FERR #### [facility] [address] [place] [address] Dr. Andrey Hargrove Iron [Mass/Vol] 47.0 ug/dL Critically low 50.0-170.0 [facility] Comment on above: Performed By: #### V ITAD, FETIBC, FERR #### [facility] [address] [place] [address] Dr. Andrey Hargrove TIBC DIRECT 264.0 ug/dL Normal 250.0-450.0 [facility] Comment on above: Performed By: #### V ITAD, FETIBC, FERR #### [facility] [address] [place] [address] Dr. Andrey Hargrove MAGNESIUMon 01-17-2022 Magnesium [Mass/Vol] 2.0 mg/dL Normal 1.8-2.4 [facility] Comment on above: Performed By: #### V ITAD, FETIBC, FERR #### [facility] [address] [place] [address] Dr. Andrey Hargrove RENAL FUNCTION PANELon 01-17 Albumin [Mass/Vol] 3.3 g/dL Critically low 3.4-5.0 [facility] Comment on above: Performed By: #### V ITAD, FETIBC, FERR #### [facility] [address] [place] [address] Dr. Andrey Hargrove Calcium [Mass/Vol] 9.1 mg/dL Normal 8.5-10.1 [facility] Comment on above: Performed By: #### V ITAD, FETIBC, FERR #### [facility] [address] [place] [address] Dr. Andrey Hargrove Chloride [Moles/Vol] 104 mmol/L Normal 98-107 [facility] Comment on above: Performed By: #### V ITAD, FETIBC, FERR #### [facility] [address] [place] [address] Dr. Andrey Hargrove CO2 [Moles/Vol] 27.6 mmol/L Normal 21.0-32.0 [facility] Comment on above: Performed By: #### V ITAD, FETIBC, FERR #### [facility] [address] [place] [address] Dr. Andrey Hargrove Creatinine [Mass/Vol] 1.71 mg/dL Critically high 0.55-1.02 [facility] Comment on above: Performed By: #### V ITAD, FETIBC, FERR #### [facility] [address] [place] [address] Dr. Andrey Hargrove EGFR-AF GERMAN 36 mL/min/1.73m2 Critically low >=60 [facility] Comment on above: Performed By: #### V ITAD, FETIBC, FERR #### [facility] [address] [place] [address] Dr. Andrey Hargrove EGFR-NON AF GERMAN 30 mL/min/1.73m2 Critically low >=60 [facility] Comment on above: Performed By: #### V ITAD, FETIBC, FERR #### [facility] [address] [place] [address] Dr. Andrey Hargrove Glucose [Mass/Vol] 115 mg/dL Critically high 74-[address] [facility] Comment on above: Performed By: #### V ITAD, FETIBC, FERR #### [facility] [address] [place] [address] Dr. Andrey Hargrove Phosphate [Mass/Vol] 4.3 mg/dL Normal 2.6-4.7 [facility] Comment on above: Performed By: #### V ITAD, FETIBC, FERR #### [facility] [address] [place] [address] Dr. Andrey Hargrove Potassium [Moles/Vol] 3.9 mmol/L Normal 3.5-5.1 [facility] Comment on above: Performed By: #### V ITAD, FETIBC, FERR #### [facility] [address] [place] [address] Dr. Andrey Hargrove Sodium [Moles/Vol] 139 mmol/L Normal 136-145 [facility] Comment on above: Performed By: #### V ITAD, FETIBC, FERR #### [facility] [address] [place] [address] Dr. Andrey Hargrove Urea nitrogen [Mass/Vol] 38.0 mg/dL Critically high 7.0-18.0 [facility] Comment on above: Performed By: #### V ITAD, FETIBC, FERR #### [facility] [address] [place] [address] Dr. Andrey Hargrove UA RANDOM W/MICROSCOPICon BACTERIA NONE SEEN Normal NONE SEEN [facility] Comment on above: Performed By: #### L IPID, TSH, FT3 #### [facility] [address] [place] [address] Dr. Andrey Hargrove Bilirubin Ql (U) Negative Normal NEGATIVE [facility] Comment on above: Performed By: #### L IPID, TSH, FT3 #### [facility] [address] [place] [address] Dr. Andrey Hargrove CAST SEEN Abnormal NONE SEEN [facility] Comment on above: Performed By: #### L IPID, TSH, FT3 #### [facility] [address] [address] [address] Andrey Hargrove Clarity (U) CLEAR Normal CLEAR [facility] Comment on above: Performed By: #### L IPID, TSH, FT3 #### [facility] [address] [address] [address] Andrey Hargrove Color (U) LT. YELLOW Normal YELLOW [facility] Comment on above: Performed By: #### L IPID, TSH, FT3 #### [facility] [address] [address] [address] Andrey Hargrove Crystals LM Nom (Urine sed) NONE SEEN Normal NONE SEEN [facility] Comment on above: Performed By: #### L IPID, TSH, FT3 #### [facility] [address] [place] [address] Dr. Andrey Hargrove Epithelial cells LM Ql (Urine sed) FEW Abnormal NONE SEEN /RARE [facility] Comment on above: Performed By: #### L IPID, TSH, FT3 #### [facility] [address] [address] [address] Andrey Hargrove Glucose Ql (U) Negative Normal NEGATIVE The [facility] Comment on above: Performed By: #### L IPID, TSH, FT3 #### [facility] [address] [address] [address] Andrey Hargrove Hemoglobin Ql (U) Negative Normal NEGATIVE The [facility] Comment on above: Performed By: #### L IPID, TSH, FT3 #### [facility] [address] [address] [address] Andrey Hargrove HYALINE CAST RARE Normal [facility] Comment on above: Performed By: #### L IPID, TSH, FT3 #### [facility] [address] [address] [address] Andrey Hargrove Ketones Ql (U) Negative Normal NEGATIVE [facility] Comment on above: Performed By: #### L IPID, TSH, FT3 #### [facility] [address] [place] [address] Dr. Andrey Hargrove LEUKOCYTES TRACE Abnormal NEGATIVE [facility] Comment on above: Performed By: #### L IPID, TSH, FT3 #### [facility] [address] [address] [address] Andrey Hargrove MUCOUS NONE SEEN Normal NONE SEEN [facility] Comment on above: Performed By: #### L IPID, TSH, FT3 #### [facility] [address] [address] [address] Andrey Hargrove Nitrite Ql (U) Negative Normal NEGATIVE [facility] Comment on above: Performed By: #### L IPID, TSH, FT3 #### [facility] [address] [place] [address] Dr. Andrey Hargrove pH (U) 5.0 [pH] Normal 5-9 [facility] Comment on above: Performed By: #### L IPID, TSH, FT3 #### [facility] [address] [place] [address] Dr. Andrey Hargrove RBC 0-2 Normal 0-2 [facility] Comment on above: Performed By: #### L IPID, TSH, FT3 #### [facility] [address] [place] [address] Dr. Andrey Hargrove SPEC GRAVITY 1.020 Normal 1.005-<=1.02 5 [facility] Comment on above: Performed By: #### L IPID, TSH, FT3 #### [facility] [address] [place] [address] Dr. Andrey Hargrove UA PROTEIN Negative Normal NEGATIVE/ TRACE [facility] Comment on above: Performed By: #### L IPID, TSH, FT3 #### [facility] [address] [place] [address] Dr. Andrey Hargrove Urobilinogen Qn (U) 0.2 {Kelly'U}/dL Normal 0.2 - 1. 0 [facility] Comment on above: Performed By: #### L IPID, TSH, FT3 #### [facility] [address] [place] [address] Dr. Andrey Hargrove WBC 2-5 Abnormal NONE SEEN The [facility] Comment on above: Performed By: #### L IPID, TSH, FT3 #### [facility] [address] [place] [address] Dr. Andrey Hargrove URIC ACID SERUMon 01-17-2022 Urate [Mass/Vol] 5.4 mg/dL Normal 2.6-6.0 [facility] Comment on above: Performed By: #### V ITAD, FETIBC, FERR #### [facility] [address] [place] [address] Dr. Andrey Hargrove URINE T PROTEIN CREAT RATIOo n 01-17-2022 Protein (U) [Mass/Vol] 15.3 mg/dL Critically high <=12.0 [facility] Comment on above: Performed By: #### V ITAD, FETIBC, FERR #### [facility] [address] [place] [address] Dr. Andrey Hargrove UR PROT CREAT RAT 0.36 Normal [facility] Comment on above: Performed By: #### V ITAD, FETIBC, FERR #### [facility] [address] [address] [address] Andrey Hargrove URINE CREAT 42.16 mg/dL Normal 20.00-300.00 [facility] Comment on above: Performed By: #### V ITAD, FETIBC, FERR #### [facility] [address] [place] [address] Dr. Andrey Hargrove VITAMIN D 25 OHon 01-17-2022 VIT D 25-OH 73.8 ng/mL Normal [facility] Comment on above: Performed By: #### V ITAD, FETIBC, FERR #### [facility] [address] [place] [address] Dr. Andrey Hargrove VIT D RANGES SEE BELOW Normal [facility] Comment on above: Result Comment: <20 ng/mL Vit D deficient 20 - <30 ng/mL Vit D insufficient 30 - 100 ng/mL Vit D sufficient >100 ng/mL Potential Toxicity Performed By: #### V ITAD, FETIBC, FERR #### [facility] [address] [place] [address] Dr. Andrey Hargrove PROF CHEM 8 (BAS METB)on Anion gap [Moles/Vol] 13.3 mmol/L Normal [facility] Comment on above: Performed By: #### V ITAD, FETIBC, FERR #### [facility] [address] [place] [address] Dr. Andrey Hargrove Calcium [Mass/Vol] 9.5 mg/dL Normal 8.5-10.1 [facility] Comment on above: Performed By: #### V ITAD, FETIBC, FERR #### [facility] [address] [place] [address] Dr. Andrey Hargrove Chloride [Moles/Vol] 98 mmol/L Normal 98-107 [facility] Comment on above: Performed By: #### V ITAD, FETIBC, FERR #### [facility] [address] [place] [address] Dr. Andrey Hargrove CO2 [Moles/Vol] 25.7 mmol/L Normal 21.0-32.0 [facility] Comment on above: Performed By: #### V ITAD, FETIBC, FERR #### [facility] [address] [place] [address] Dr. Andrey Hargrove Creatinine [Mass/Vol] 2.92 mg/dL Critically high 0.55-1.02 [facility] Comment on above: Performed By: #### V ITAD, FETIBC, FERR #### [facility] [address] [place] [address] Dr. Andrey Hargrove EGFR-AF GERMAN 19 mL/min/1.73m2 Critically low >=60 [facility] Comment on above: Performed By: #### V ITAD, FETIBC, FERR #### [facility] [address] [place] [address] Dr. Andrey Hargrove EGFR-NON AF GERMAN 16 mL/min/1.73m2 Critically low >=60 [facility] Comment on above: Performed By: #### V ITAD, FETIBC, FERR #### [facility] [address] [address] [address] Andrey Hargrove Glucose [Mass/Vol] 156 mg/dL Critically high 74-106 [facility] Comment on above: Performed By: #### V ITAD, FETIBC, FERR #### [facility] [address] [place] [address] Dr. Andrey Hargrove Potassium [Moles/Vol] 5.0 mmol/L Normal 3.5-5.1 [facility] Comment on above: Performed By: #### V ITAD, FETIBC, FERR #### [facility] [address] [place] [address] Dr. Andrey Hargrove Sodium [Moles/Vol] 132 mmol/L Critically low 136-145 [facility] Comment on above: Performed By: #### V ITAD, FETIBC, FERR #### [facility] [address] [place] [address] Dr. Andrey Hargrove Urea nitrogen [Mass/Vol] 77.0 mg/dL Critically high 7.0-18.0 [facility] Comment on above: Result Comment: CALL ED TO FRANCIS JUNG RMA Performed By: #### V ITAD, FETIBC, FERR #### [facility] [address] [place] [address] Dr. Andrey Hargrove Urea nitrogen/Creatinine [Mass ratio] 26.4 mg/mg Normal [facility] Comment on above: Performed By: #### V ITAD, FETIBC, FERR #### [facility] [address] [place] [address] Dr. Andrey Hargrove Cardiovascular Lab Reporton 12-10-2021 Cardiovascular Lab Report [facility] Patient Name: Sameer [facility] MR #: [id number] Physician: Karthik Brewster M.D. Medicine Service Date: 12/09/2021 Division of Birthdate: 1950 Cardiology Room #: Adult Cardiovascular Services [place] [address] Cardiovascular Laboratory Report INDICATION: The patient is [...] signed informed consent. 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 The right neck area was prepped and draped in usual fashion. Micropuncture technique and ultrasound guidance were used for access in the right internal jugular vein. A 5-Fijian x 11 cm sheath was placed. A 5-Fijian Dumont catheter was used for right heart catheterization and measurement of pressures and calculation of cardiac output using the estimated Macarena method. Dumont catheter was removed. Manual compression [...] P/Karthik Fish M.D. Date Trans: 12/09/2021 11:37 P/monikao [id number] cc: John Perdomo D.O. [address] [facility] [address] [address] [facility] CBC COMPLETE BLOOD COUNTon 0 12-09-2021 Erythrocyte distribution width (RBC) [Ratio] 13.6 % Normal 11.5-15.[address] [facility] Comment on above: Performed By: #### 5 [id number] #### [facility] [address] [place] [address], [facility] Hematocrit (Bld) [Volume fraction] 35.6 % Low 36.0-45.[address] [facility] Comment on above: Performed By: #### 5 [id number] #### [facility] [address] [facility] [place] [id number], [facility] Hemoglobin (Bld) [Mass/Vol] 11.8 g/dL Low 12.0-15.[address] [facility] Comment on above: Performed By: #### 5 0608 #### [facility] [address] [place] [id number], [facility] MCH (RBC) [Entitic mass] 28.6 pg Normal 27.0-33.[address] [facility] Comment on above: Performed By: #### 5 0608 #### [facility] [address] [place] [address], [facility] MCHC (RBC) [Mass/Vol] 33.1 g/dL Normal 32.0-35.[address] [facility] Comment on above: Performed By: #### 5 [id number] #### [facility] [address] [place] [id number], [facility] MCV (RBC) [Entitic vol] 86.2 fL Normal 82.0-98.[address] [facility] Comment on above: Performed By: #### 5 [id number] #### [facility] [address] Nucleated RBC/100 WBC (Bld) [Ratio] 0 % Normal 0-[address] [facility] Comment on above: Performed By: #### 5 [id number] #### [facility] [address] [place] [address], [facility] PLAT CNT 240 10*3/uL Normal 150-[address] [facility] Comment on above: Performed By: #### 5 [id number] #### [facility] [address] RBC (Bld) [#/Vol] 4.13 10*6/uL Normal 3.80-5.[address] [facility] Comment on above: Performed By: #### 5 [id number] #### [facility] [address] WBC (Bld) [#/Vol] 14.13 10*3/uL High 4.00-10.[address] [facility] Comment on above: Performed By: #### 5 [id number] #### [facility] [address] [facility]on SARS-CoV-2 (COVID-19) RNA JAYASHREE+probe Ql (Unsp spec) Not detected Normal NOT DETECTED The [facility] Comment on above: Result Comment: This test is not yet approved or cleared by the [place] FDA. When there are no FDA-approved or cleared tests available, and other criteria are met, FDA can make tests available under an emergency access mechanism called an Emergency Use Authorization (EUA). The EUA for this test is supported by the [place] of Health and Human Service's (HHS's) declaration [...] consistent with SARS-CoV-2. Performed By: #### V ITAD, FETIBC, FERR #### [facility] [address] [place] [address] Dr. Andrey Hargrove ECHOCARDIO M/2D COMPLETEon 0 12-06-2021 ECHOCARDIO M/2D COMPLETE Patient: CLAUDIA ESTRELLA Exam Date: 12/06/2021 : 1950 Gender:F Ordering : CARMINA ROSALES Admission #: [id number] Family : DR JOHN PERDOMO D.O. Order #: [id number] CLICK HERE TO VIEW EXAM ECHOCARDIOGRAM REPORT [...] Area(A4C): 14.80 cm2 Left Atrium Systolic Volume(A2C): 65550 mm3 Left Atrium Systolic Volume(A4C): 59495 mm3 Mitral Valve MV E to A [...] Karthik Fish M.D. on 12/06/2021 at 17:31 [facility] 12-01-2021 Natriuretic peptide B (Bld) [Mass/Vol] 5127.0 pg/mL Critically high <=900.0 [facility] Comment on above: Performed By: #### V ITAD, FETIBC, FERR #### [facility] [address] [place] [address] Dr. Andrey Hargrove PROF CHEM 8 (BAS METB)on Anion gap [Moles/Vol] 13.9 mmol/L Normal [facility] Comment on above: Performed By: #### V ITAD, FETIBC, FERR #### [facility] [address] [place] [address] Dr. Andrey Hargrove Calcium [Mass/Vol] 9.4 mg/dL Normal 8.5-10.1 [facility] Comment on above: Performed By: #### V ITAD, FETIBC, FERR #### [facility] [address] [place] [address] Dr. Andrey Hargrove Chloride [Moles/Vol] 99 mmol/L Normal 98-107 [facility] Comment on above: Performed By: #### V ITAD, FETIBC, FERR #### [facility] [address] [place] [address] Dr. Andrey Hargrove CO2 [Moles/Vol] 28.4 mmol/L Normal 21.0-32.0 [facility] Comment on above: Performed By: #### V ITAD, FETIBC, FERR #### [facility] [address] [place] [address] Dr. Andrey Hargrove Creatinine [Mass/Vol] 2.11 mg/dL Critically high 0.55-1.02 [facility] Comment on above: Performed By: #### V ITAD, FETIBC, FERR #### [facility] [address] [place] [address] Dr. Andrey Hargrove EGFR-AF GERMAN 28 mL/min/1.73m2 Critically low >=60 [facility] Comment on above: Performed By: #### V ITAD, FETIBC, FERR #### [facility] [address] [place] [address] Dr. Andrey Hargrove EGFR-NON AF GERMAN 23 mL/min/1.73m2 Critically low >=60 [facility] Comment on above: Performed By: #### V ITAD, FETIBC, FERR #### [facility] [address] [place] [address] Dr. Andrey Hargrove Glucose [Mass/Vol] 179 mg/dL Critically high 74-106 T [facility] Comment on above: Performed By: #### V ITAD, FETIBC, FERR #### [facility] [address] [place] [address] Dr. Andrey Hargrove Potassium [Moles/Vol] 4.3 mmol/L Normal 3.5-5.1 [facility] Comment on above: Performed By: #### V ITAD, FETIBC, FERR #### [facility] [address] [place] [address] Dr. Andrey Hargrove Sodium [Moles/Vol] 137 mmol/L Normal 136-145 [facility] Comment on above: Performed By: #### V ITAD, FETIBC, FERR #### [facility] [address] [place] [address] Dr. Andrey Hargrove Urea nitrogen [Mass/Vol] 62.0 mg/dL Critically high 7.0-18.0 [facility] Comment on above: Performed By: #### V ITAD, FETIBC, FERR #### [facility] [address] [place] [address] Dr. Andrey Hargrove Urea nitrogen/Creatinine [Mass ratio] 29.4 mg/mg Normal [facility] Comment on above: Performed By: #### V ITAD, FETIBC, FERR #### [facility] [address] [place] [address] Dr. Andrey Hargrove BNPon 11-19-2021 Natriuretic peptide B (Bld) [Mass/Vol] 4773.0 pg/mL Critically high <=900.0 [facility] Comment on above: Performed By: #### V ITAD, FETIBC, FERR #### [facility] [address] [place] [address] Dr. Andrey Hargrove PROF CHEM 8 (BAS METB)on Anion gap [Moles/Vol] 11.3 mmol/L Normal [facility] Comment on above: Performed By: #### V ITAD, FETIBC, FERR #### [facility] [address] [place] [address] Dr. Andrey Hargrove Calcium [Mass/Vol] 8.9 mg/dL Normal 8.5-10.1 [facility] Comment on above: Performed By: #### V ITAD, FETIBC, FERR #### [facility] [address] [place] [address] Dr. Andrey Hargrove Chloride [Moles/Vol] 100 mmol/L Normal 98-107 [facility] Comment on above: Performed By: #### V ITAD, FETIBC, FERR #### [facility] [address] [place] [address] Dr. Andrey Hargrove CO2 [Moles/Vol] 30.9 mmol/L Normal 21.0-32.0 [facility] Comment on above: Performed By: #### V ITAD, FETIBC, FERR #### [facility] [address] [place] [address] Dr. Andrey Hargrove Creatinine [Mass/Vol] 2.01 mg/dL Critically high 0.55-1.02 [facility] Comment on above: Performed By: #### V ITAD, FETIBC, FERR #### [facility] [address] [place] [address] Dr. Andrey Hargrove EGFR-AF GERMAN 30 mL/min/1.73m2 Critically low >=60 [facility] Comment on above: Performed By: #### V ITAD, FETIBC, FERR #### [facility] [address] [place] [address] Dr. Andrey Hargrove EGFR-NON AF GERMAN 24 mL/min/1.73m2 Critically low >=60 [facility] Comment on above: Performed By: #### V ITAD, FETIBC, FERR #### [facility] [address] [place] [address] Dr. Andrey Hargrove Glucose [Mass/Vol] 81 mg/dL Normal 74-106 [facility] Comment on above: Performed By: #### V ITAD, FETIBC, FERR #### [facility] [address] [place] [address] Dr. Andrey Hargrove Potassium [Moles/Vol] 3.2 mmol/L Critically low 3.5-5.1 [facility] Comment on above: Performed By: #### V ITAD, FETIBC, FERR #### [facility] [address] [place] [address] Dr. Andrey Hargrove Sodium [Moles/Vol] 139 mmol/L Normal 136-145 [facility] Comment on above: Performed By: #### V ITAD, FETIBC, FERR #### [facility] [address] [place] [address] Dr. Andrey Hargrove Urea nitrogen [Mass/Vol] 51.0 mg/dL Critically high 7.0-18.0 [facility] Comment on above: Performed By: #### V ITAD, FETIBC, FERR #### [facility] [address] [place] [address] Dr. Andrey Hargrove Urea nitrogen/Creatinine [Mass ratio] 25.4 mg/mg Normal [facility] Comment on above: Performed By: #### V ITAD, FETIBC, FERR #### [facility] [address] [place] [address] Dr. Andrey Hargrove COVID-19 Antigenon 2 COVID-19 [...] its performance Kenny Disclaimer characteristic determined by [employer] and Kenny Disclaimer validated at [facility]. This Kenny Disclaimer test has not been [...] Emergency Use Authorization for Coronavirus Kenny Disclaimer is during the Public Health Emergency) Kenny Disclaimer [...] is terminated or revoked sooner. PERFORMED BY: [facility] [place] [address] PATHOLOGIST TELEVISION NEWS PHOTOGRAPHER JAMAL ALLEN M.D. [facility] Comment on above: Performed By: #### S OFCUONGPOS, COVID-19 KENNY #### [facility] [address] [place] [address] [facility] Kenny Ag Positiveon 07-31-19 Kenny Ag Positive Positive Critically abnormal Negative [facility] Comment on above: Result Comment: This is a duplicate Kenny SARS Antigen (JOSE RAMON) result to be used for statistical tracking purpose only. PERFORMED BY: [place] [address] PATHOLOGIST TELEVISION NEWS PHOTOGRAPHER JAMAL ALLEN M.D. Performed By: #### S OFIAPOS, COVID-19 EKNNY #### [place] [id number] [facility] Coding Summary.on 12-22-2020 Coding Summary. CD:[id number] G h0bWw+PGhlYWQ+SR5SVAH eG46pqSNymJ8XJ5bESS4V OWQYKBKRSP4LTS6zyUR3U XphJ5HjgeEz CvwkhPCwSS49LOk6EVO2n JysAWfswM0ivXLbW7h3Qp VyJO89lL20NYdgUAGiFsC 3LjZpbjsgbWFy P4hdDuIohXAvEht+PHRhY mxlIHdpZHRoPScxMDAlJy MyfOyvTE1wRf0pJZEdQWY vbGxhcHNlOiBj k7fcRWJsDBmiOA4sdOxrT 6KhoDD5QMFqe1l5Io77fQ I+DHXhOMO3gTemUQoof75 9ZhZpa1sjYFD2 mZIrPHvnEGS7O24zj3G3C QFlVBJsXIO7iJX3yJ6xgI rlnftzA6OtsCNoVjV9QWZ 1oECxrK1kuRov gikhtF4sAqh+F96MAP1BX DBODU7CZwj8W2TvUyfnpE I+XE91DZPxZV68bKAfgRQ vm3duoXa0DsFq WQMkOLN6fOubNZdlx8PrH HYnB21zeIEsk6K5SOMypV seeDGnCsFosTV3tF3oPPt yjrfhx3ukaewa Mbpzg8ycdu00dV51C36rY NjwMLWkZVZ8HURhQRYzoL mtew1kgD1qDj5+HDreg4j tr4godCz8CcNc MHChtiFcoFeiYYG0t0OhR x64Z5EuuNvck8DqPab2lm 03vNCgw0E7jLM8FBkfFVV xcN9eDZpzKrD0 UGFdIqHxbS38hOVaXBfpV x5kySjkiZnbEF9gTRYzmi olTFSzcE9jWOVhfLApaLh oIS8xEGMbiwfk h805BqIqIYW5YQRzoKShF 4AdqL8gYdZlWJZgLDKhC5 XwfVJzRYdrN883TUebVnA 2LNTdvsOtO4Ri GYRdcUnnMhB3v1Q3Kq2Up 2ZslivoWOL2APifRTC2Hu OiVvPyUcV3C4OtEmv6MZO biDnhVZ4tX6Ms SWVdwynyrpycbQG0VPDgH VVuaT86wBXuURwrTo9tr6 X6d350SZFnNXYxoB89Ry3 udDogMTBwdCBU dG0dgvxib5rgduowEcVpV MEvZRe5UBw9IRDioVtkAd SaGYW8KwU4MRE6yBIvfD8 cpLhhkxdvwR8u Oyc+I80mtQ5uEGQ8BIN6m lcnTMXowcCsXW89OS54G2 RyPjwvdGFibGU+PGRpdiB erLsgGS0hBqCq k5meq8NvYZiaD5JnYMTeA DdhHib7XPWaBSP1dQB4yY 2bIVMuKHxbb0F6kYJ7W1I vgmFric9tn7rx VRFzGHtzO91smYBim3O0R JUbtJW7CZWlwWgiJwNeiF 93Oyc+YTSitYhzs9EuRbe fm8aqt3txsYh7 LfNuEYKrqqDkvOnfDEF9x 3ZzSx84P60aKJgmRMXcKZ CmZMYbHZCpnLxkzj0ubY6 wIi8+PGNvbCB3 tSL3iW6qROWoUsI1TVmmH 020MdMkmNJaBmsug4wvv5 wpdDm8QuDdHBAzykGpzQe qFIK1p2WtDc01 T13vKLwqJYZuWSSzTIEeW RInyIgsfr7dyC9wRy2+PC 1qa8zscj97hU47mFP+PHR zCGX2lXyfGKni QBMxuH3mKMsqAzY5BSQpA wMkwG38aLEnOExzTb4wbI zzsYncJC7oRIGchxwml57 5LdXsx1jeKNLy rJSjYLrqPFB4W45wr2Y9X JKiMIGqUFR8bDJ9eW1qhF lnbjogbGVmdDsgdmVydGl jEDndGSzaS693 IHRvcDsnPlBhdGllbnQgT vHiXDw1S2RdObp5XGWqgN ucYJ4tlHTvGSmbAq2nrYn azUlpYT4vAQWv sdttm622AqOds5wgLYKjz ZBwUEvmJHB8K15js4H1PO UkBKTlDDZ2uNJ2qG9efTo nbjogbGVmdDsg hyQguVdcYBwnNJbbZ976G HRvcDsnPkJpcnRoIERhdG I9AS64PO06bMEpm4M8dHN 3M3HuGHYszjjs hevrhQB2UZOwJCOdaR52S p6vpResQv8zCSUqHNM5FD YzzSIpL1GqrK7zTjZtFVH dKWArY6TuqIXl KCncC553XFyyFqO2FEAay dHcE0YaAONezQveYbO3l7 T1Pz1ZS5U2YQ44NJ67gCV fq2G1qXE8G0Qs OHUxqobvlefetLD5UTRvD OYhmQ41Xh5aqTchUz4sKQ TfJKL1IQVgqSHfW7HibO9 yOiAjMDAwMDAw J8PfaZLiHKvvU739TDkzY gV6VHJzunFoR5YeMPVxxL ocIrR1c3R9Oy7NHUv0IO2 9KF40zEDik6S0 eMT5U0WnQUIhwqhwaozpv RP4TCNyZNHpcU29Ll6rdE huBd2xYHBkIKL1NKEuzOX dY3BewQ1mRfPn NNPfLTCsI7CgkFBcEFsjA 306CDkfXxF2SCMjkpSbB4 FmMYVmnYvcBnA2z8H0Hc7 WYDPsJG23ZEL1 zJY4UW66PC26O6ZhTllez GFibGU+PHRhYmxlIHdpZH RoPScxMDAlJyBzdHlsZT0 rQa9fJOOsXBKl wDakrVDwLpAga4uvGSJlT TfiGO4dgYmvF2TvyMK4WQ Agt5z2Qg67V92jX1YbnCJ +BLTxqPA7sHL0 xF3tHdLfTlT9FQnwC138R zBiuRSpAresy1jit7ancE g3VnX1RTAjiqTqgLwxKED 3s9BfLs00S51u IHdpZHRoPSIxNSUiIHZhb Osxrv4jhG6jHh5+PGNvbC V1wGF2dF7xZrEcCsX7LOp qZ583EkUcqFIm Igdpw4yii3kmzLr4WqYnM XWcvoIddUfqYNA8h0ThAk 27D2YzlGbjj0VzZek7ig7 3gRVcq5T6oJY6 O8JaVYFwpwwzjZSqjMinH W6bUJGkfjwdFGQvpV3dDH BxH7m1DkCbPgS3BXrpR7D zxwY2TJIbvKLp PJpjQDZ4S87xm1I1SJFbS DTqADZ8sHA3wD1ovHumhb ogbGVmdDsgdmVydGljYWw oTVsiE656DXIb fRpbFKWloQ5sQDEtnEWos PaeKC1mKBHsyqwrEx9UK8 IRYwnlI8tMKv4ZQPL9H2Q tPua8UXEkeSxf GB4orHMtGUiwJm4nvPcne YtoWV4wEIOiduujZKXyfD 2zOBKnlHUqvJvqDG9qRZT nczimp917FdGx SKU0WVEvnHIkM7QxrK2oM tZlAMLsJONzJ5TgsTRzRR wlB600MVpmTxX4QRBhqrH xU5GcRRNbnYpn IzC7a9E9Zc9wCW5hOy3sO JBmMC45VU83dXVoq5R6oP D4I6AuMAEczwajlejzeDQ 1OGLrUGPsuY10 oQWkPOyzGk6vv9X3j872I NWdHJPlyS80Kv6ckOdmZO HrpSKKhG8kahvfb8cmaxf gIzAwMDAwMDt0 YOj6UUMjwBzcHwWtTHG6Q lX0QFU4xZUlmA4vzKtyaz ranO3iOvp+NjkgWWVhcnM 0S4FzTas9OZAq vQgqIW5orDVmRQyoNk9if IfezPkmNM1wHQZgwkefYA MwuB0bLWReoXZfjYaoRJ8 hRZGoazmwh001 KsEsHOX8DWKjrCYgX2Hop D8oZzPqYPVoZQZqW3DbhG AoQQtfG364IGzpBwX8RDB gphGeV9MeOIIw hXkiNeL7s0H4Jb0BVK0rt ZT4C1VaVjn7XAQylRcmYL 4nmHNvGNtnXj7lwRumrAh oIS0sFANwqngw GWYboR1zJDJxaYZbcWgjM Y5vXDCdfmfrw431ZfNqBL I3WAHnfANeD5YyhX9wAjO iVOQzPHJnY2Fe eFJeMHtlX425SWgaUwN4H HWvgzLcZ1NiAKKglBlzNa Y7g8G0Zw2ACRLeURVzqUH mWfB3C1KhTdyk dHI+NI89NPNuJA12nUPan HDag1zjvAf0ArZpTRDeDF X1uKjgMRfbw9TkUJAzN07 afACxz1H1NNRf iFdogOVxIrZtxJR9eZ3dP Xljbyocr1lqhtltUewiv1 jjik07kH37U53zMOmaQXM oPSIzMCUiIHZh tHwlrd4gtK0bXs8+PGNvb CL0xAF2cB9oPoUsDlL6TG xuN840IlAvcXBcTdthp8x lp8lfzVd6CiWf FCJwvsQfbKhySXY1n9LiP j46Q57wKIdfEJAyNKPkDG EzWEAnrKursl6gaQ6eXp2 +UY7av3qlff48 cA07qRO+LDLrRSY0pPkoO HokQGKsvB4zGNgqNmC0ZU LsGiEsaS39uBLzGPebLs1 rhKzkmYpwJA4i EZGkrvkuf397UqSpl4ptU WDrlELaEFxeGXM3N86gr2 Y3XXLrWLWrLCQ5rMG2aJ9 hbGlnbjogbGVm dDsgdmVydGljYWwtYWxpZ 761PHSvkFduQxHizSRrU7 etkyLZPK3vOqupqNU+PHR dMCW2sZptKZow OPQxpE8mRZOeK4v6PeGtI aJ1JYbrD2XqfrK7NVKujI QsOUMwoSAAoM5hgktfj8v vcjogIzAwMDAw KOj2XPx0SXYnrEzyTmPiQ PJ5SlJ1KGX1vNUweA9ttS rqckgnnX7kWhw+RklOOjw vdGQ+PHRkIHN0 jYgpVDwzWTTfoU3hOSKbD 9t8WyVhWpB1LQcbK2Bcsn W8ZGZitEEsOFEawNQZjK7 lkplyq5arprvy PqZkGWAdJAn9VWw8JVZwb MygIuXuVWN6BcL0OIB9hN GmsE1xyVehecmljE2jVsy +TVJOOjwvdGQ+ CMLpSPD4vZqqJCfgJXHzm W0tDIYtW4t5UvRjJlJ8HP unD4UxlkH5IOJxrVLfSVE ldVBDaW3macim z8cwvpocLwBlEURoRSz7L Ia0XUAysAeaPlMuQBN3Mz L6SGE2cFRgiD4ayZbonco uzR0aGlt+UGF5 YXQ9ZL33EY44G6OqUevtg GFibGU+PHRhYmxlIHdpZH RoPScxMDAlJyBzdHlsZT0 kEo4aMZKxBLUl bGxh (more content not included)... Normal [facility] Consent for Procedure/Surger yon 12-16-2020 Consent for Procedure/Surgery [id number] #1.00CD:127 Normal [facility] Formson 12-16-2020 Forms [id number]#1. 00CD:127 Normal [facility] Lab Reportson 12-16-2020 Lab Reports [id number]#1. 00CD:127 Normal [facility] Physician Referralon 021 Physician Referral [id number]#1 .00CD:127 Normal [facility] RAD - MISCon 12-16-2020 RAD - MISC [id number] #1.00CD:127 [facility] RAD - Ultrasound Reporton RAD - Ultrasound Report [id number]#1 .00CD:127 Normal [facility] Ambulatory Clinical Summaryo n 12-15-2020 Ambulatory Clinical Summary {[id number]-[id number] -56-[id number]-d7-21-52-c3 -f8-10}CD:[id number] Normal [facility] Patient Educationon 12-16-19 21 Patient Education Urology Hematuria, Adult Hematuria [...] these instructions at home: Medicines ? Take dzyu-hvt-eqkphcf and prescription medicines only as told by [...] the blood stops without treatment. ? Take ytnb-vlb-suloxst and prescription medicines only as told by your health care provider. ? Drink enough fluid to keep your urine clear or pale yellow. This information is not intended to replace advice given to you by your health care provider. Make sure you discuss any questions you have with your health care provider. Document Released: 06/19/2006 Document Revised: 11/13/2019 Document Reviewed: 07/22/2017 [employer] Patient Education ? [address] [employer] [facility] Urology Office/Clinic Noteon 12-15-2020 Urology Office/Clinic [...] The Urethra was dilated to: _18- 30 Fijian with sounds. Specimens Removed: None Removal: Cystoscope [...] Marcos Abreu, URL [facility] [address], [place] [address] [phone] Additional Instructions: f/u PRN Patient Education Hematuria, Adult I, Donna Hartley, personally scribed for Dr. Kwon on 12/15/2020 15:55:59. . Documentation recorded by the scribe, jessee Hartley, accurately reflects the services(s) I performed and [...] 50,000 intl units (1.25 mg) oral capsule, 20682 International_Unit= 1 cap(s), Monday Zioptan 0.0015% ophthalmic solution Allergies erythromycin (Anaphylactic reaction) penicillin (Hives) Social History Alco (more content not included)... Normal [facility] Comment on above: Result Comment: Elec tronically Signed By: CHER VIGIL, Marcos Abreu\.br\Date and Time Signed: 12/15/20 15:58 EDT\.br\Electronically Co-Signed By: Donna Hartley\.br\Date and Time Co-Signed: 12/15/20 15:56 EDT Reminderson 12-14-2020 Reminders - From: Augusta Singh To: EU - Clinical; Sent: 12/11/2020 13:29:41 EDT Show up: 12/14/2020 13:29:00 EDT Subject: Urine culture Reminder/Recall Urine Culture PRW reviewed positive culture. [facility] C Urineon 12-13-2020 Bacteria identified Cx [...] Locations R1: This test was performed at: [facility], [address] [place] [address], [phone] , , [facility] Comment on above: Performed By: #### 2 [id number] ####[place] [address] [place] [address] Ambulatory Clinical Summaryo n 12-11-2020 Ambulatory Clinical Summary {[id number]-44 -q6-3g-6v-c1-ff-d3-6c -b8-cc}CD:581363 Normal [facility] Ambulatory Clinical Summary {[id number]-qd-01-34-83-4d -8i-wg-32-7f-5d-8d-13 -29-0f}CD:678952 Normal [facility] Ambulatory Clinical Summary {[id number]-78-2a-0b-46 -0h-62-98-04-9a-2b-c5 -e6-1f}CD:680751 Normal [facility] Patient Educationon 12-12-19 Patient Education Urology Hematuria, Adult Hematuria is [...] these instructions at home: Medicines ? Take hkjx-whp-fibfmcz and prescription medicines only as told by [...] the blood stops without treatment. ? Take zpiw-chz-ppqfyoa and prescription medicines only as told by your health care provider. ? Drink enough fluid to keep your urine clear or pale yellow. This information is not intended to replace advice given to you by your health care provider. Make sure you discuss any questions you have with your health care provider. Document Released: 06/19/2006 Document Revised: 11/13/2019 Document Reviewed: 07/22/2017 Else[employer] Patient Education ? [address] [employer] 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 Mary Grace due to Hematuria. Pt states that since the End of October she has been feeling a slight squeeze, no pain associated with this. Pt had a Renal US done at [facility]. Pt states that she has a Kidney [...] Information CHER VIGIL, Marcos Abreu, URL [address] [place] [address]- [phone] Additional Instructions: Patient Education Hematuria, Adult I, [...] Tab amLOD (more content not included)... Normal [facility] Comment on above: Result Comment: Elec tronically Signed By: CHER VIGIL, Marcos Abreu\.br\Date and Time Signed: 12/11/20 11:17 EDT\.br\Electronically Co-Signed By: Regla Pyle MA\.br\Date and Time Co-Signed: 12/11/20 11:12 EDT Lab Reportson 11-16-2020 Lab Reports [id number]#1 .00CD:127 [facility] Lab Reports [id number]#1 .00CD:127 [facility] RAD - Ultrasound Reporton RAD - Ultrasound Report [id number]#1 .00CD:127 [facility] IntraOperative Documentson 07-12-2019 IntraOperative Documents [id number]# 1.00CD:127 [facility] Message from Medicareon Message from Medicare [id number]#1.0 0CD:127 [facility] Coding Summary.on 05-06-2020 Coding Summary. CODING DATE: 05/06/2020 FINAL [facility] STATUS: Home (Routine DC) PAYOR: Medicare APC [...] PROC APC STAT DESCRIPTION DOCTOR NAME DATE 74155 7589 J1 Arthroscopy, knee, David Talamantes DO 05/01/2020 surgical; with meniscectomy (medial OR lateral, including any meniscal shaving) including debridement/shaving of articular cartilage (chondroplasty), same or separate compartment(s), when performed LT Left side (used to identify procedures performed on the left side of the body) 24458 Anesthesia for open or Aldridge Gurmeet Gomes [...] Bowers Revised Date Saved: 05/06/2020 11:[address] [facility] Insurance Correspondence Off iceon 05-05-2020 Insurance Correspondence Office [id number]# 1.00CD:127 Normal [facility] Main OR Intraoperative Recor don 05-05-2020 Main OR Intraoperative Record IntraOp Document Type FT Summary Primary Physician: David Talamantes DO Finalized Date/Time: 05/05/20 14:09:46 Pt. Name: CLAUDIA ESTRELLA/Sex: 1950 Female Med Rec #: [id number] Physician: David Talamantes DO Financial #: [id number] Pt. Type: O Room/Bed: N217/01 Admit/Disch: 05/01/20 11:43:14 - 05/04/20 12:35:00 Institution: Case Times FT Entry 1 Patient Times In Room 05/01/20 14:26:00 Out Room 05/01/20 15:04:00 Procedure Times Start 05/01/20 14:43:00 Stop 05/01/20 15:01:00 Anesthesia Times Start 05/01/20 14:26:00 Stop 05/01/20 15:04:00 Last Modified By: Edgar WU, Viky Mcdonough 05/01/20 15:04:34 General Comments: 05/05/2020 Chart open to review and send charges. Jessee Thomas RN Case Attendance FT Entry 1 Entry 2 Entry 3 Case Attendee Luis Carlos Gomes DO, Gurmeet Talamantes DO, David Hernández RN, Viky Mcdonough Role Performed Anesthesiologist of Surgeon - Primary Airplane Technician - Primary Record Time In 05/01/20 14:26:00 05/01/20 14:39:00 05/01/20 14:26:00 Time Out 05/01/20 15:04:00 05/01/20 15:04:00 05/01/20 15:04:00 Procedure KNEE ARTHROSCOPY(Left) KNEE ARTHROSCOPY(Left) KNEE ARTHROSCOPY(Left) Comments Last Modified By: Edgar RN, Viky Hernández RN, Viky Hernández RN, Viky Mcdonough 05/01/20 15:04:35 05/01/20 15:04:35 05/01/20 15:04:35 Entry 4 Entry 5 Entry 6 Case Attendee Maxim RN, Augusta Castro GERONTOLOGY AIDE, Leatha Flowers RN, CNOR, Cee Role Performed Airplane Technician - Primary Scrub - Primary Airplane Technician - Relief Time In 05/01/20 14:26:00 05/01/20 [...] (If Applicable) PreOp Antibiotic No Time Out Luis Carlos Gomes DO, Gurmeet Mcdonough, Given Participants David Talamantes DO, Viky Hernández RN, Chapin RN, Matthew Crain CST, Leatha Samuels Time [...] and tissue Entry 1 Skin Integrity Intact, [place], Warm, and Skin Abnormality No Dry Outcomes Met? Yes Last Modified By: Viky Hernández RN 05/01/20 14:46:48 Post-Care Text: The patient is free from signs and symptoms of injury caused by extraneous objects Patient Positioning FT Pre-Care Text: Identifies physical alterations that require additional precautions for procedure-specific positioning, verifies presence of prosthetics or corrective (more content not included)... Normal [facility] Progress Note-Physicianon Progress Note-Physician Patient: CLAUDIA ESTRELLA [...] volume (mL): 1,000, 68.3 kg, 1.64, m2 [place] 5/325 Tab: 1 tab(s), Tab, Oral, q4hr [...] Problems DM kidney disease / SNOMED CT 115703696 / Confirmed PVD (peripheral vascular disease) / SNOMED CT 5804737074 / Confirmed MMT (medial meniscus tear) / SNOMED CT 934890517 / Confirmed Resolved: Ocular herpes zoster / SNOMED CT 151880218 Resolved: HTN (hypertension) / SNOMED CT 7792112045 Canceled: Diabetes / SNOMED CT 595416097 Histories Past Medical History: No active or resolved past medical history items have been selected or recorded. Family History: No family history items have been selected or recorded. Procedure history: Right eye cataract extraction and insertion of intraocular lens (1318144989) on 11/19/2019 at 69 Years. Cataract extraction and insertion of intraocular lens (8505965251) on 11/06/2019 at 69 Years. Comments: 11/06/2019 14:13 EDT - Fabian WU, Loreto Abreu Left Appendectomy (271292869). section x2 (55591182). Cholecystectomy (26644340). Anesthesia for laparoscopic procedure on lower abdomen (57576516). Cheilectomy of tarsal foot (1630726942). Social History Social & Psychosocial Habits Alcohol [...] results Radiology results ECG interpretation Condition Plan [place] [employer] (ASA) physical status classification: Class III. Anesthetic Preoperative (more content not included)... Normal [facility] Comment on above: Result Comment: Elec [...] Problems DM kidney disease / SNOMED CT 213842203 / Confirmed PVD (peripheral vascular disease) / SNOMED CT 1474281489 / Confirmed MMT (medial meniscus tear) / SNOMED CT 457457519 / Confirmed Resolved: Ocular herpes zoster / SNOMED CT 034381223 Resolved: HTN (hypertension) / SNOMED CT 1289500829 Canceled: Diabetes / SNOMED CT 367001143 Physical Examination Vital Signs 05/01/2020 16:58 EDT [...] nausea and vomiting. Pt c/o CP substernal 10 after dilaudid . EKG obtained SR. Pain relieved with Sublingual NTG. Spoke with hospitalist he will admit also ordered stat serial troponin levels. will F/U Plan Transfer/ Discharge: Condition stable. Normal [facility] Comment on above: Result Comment: Elec tronically Signed By: Gurmeet Aldridge Jr, DO\Date and Time Signed: 05/05/20 08:22 EST Capillary Glucose POCon Glucose [Mass/Vol] 149 mg/dL High 55-99 [facility] Comment on above: Result Comment: Monty MEDEIROS Performed By: #### 2 [id number] #### [facility] [address] [place] [address] Glucose [Mass/Vol] 127 mg/dL High 55-99 [facility] Comment on above: Result Comment: Monyt MEDEIROS Performed By: #### 2 [id number] #### [facility] [address] [place] [address] Consent for Anesthesiaon Consent for Anesthesia [id number]#1 .00CD:127 Normal [facility] Discharge Instructionson Discharge Instructions [id number]# 1.00CD:127 Normal [facility] Inpatient Clinical Summaryon 05-04-2020 Inpatient Clinical Summary [address] [address] Clinical Summary Person Information: Name: CLAUDIA ESTRELLA Age: 70 Years : 1950 Sex: Female PCP: JOHN PERDOMO DO Marital Status: Race: White Ethnicity: Non- or Language: Armenian Visit Id: Visit Reason: LEFT KNEE BONE BRUISE, MEDIAL MENISCUS TEAR, EFFUSION Speciality: Acuity: Enc Type: Observation Med Service: Surgery Arrival: 05/01/2020 11:43:14 Discharge: Dispo Type: Address: [address] [place] [address] Provider Notes: Diagnosis: 1:Other chest pain; 2:Hypertension; [...] up: With: Address: When: Follow up with Checker Within 1 week With: Address: When: JOHN PERDOMO [facility] [place] [address] Business (1) With: Address: When: David Talamantes [address] [id number] Business (1) Comments: Keep scheduled appointment Patient Education Information: Post Op Patient Instructions - FT (Custom); Knee Cryocuff Patient Instructions - FT (Custom); Talamantes - Knee Arthroscopy (Custom) (CUSTOM) Normal [facility] Inpatient Patient Summaryon 05-04-2020 Inpatient Patient Summary [address] [address] Patient Discharge Instructions PERSON INFORMATION Name: CLAUDIA ESTRELLA Date of : 1950 Current Date: 05/04/2020 12:16:47 PHYSICIANS Admitting Physician: Nhung BARAHONA MD Primary Care Physician: JOHN PERDOMO DO Comment: Discharge Diagnosis: 1:Other chest pain; 2:Hypertension; 3:Diabetes; 4:Acute medial meniscus tear of left knee; 5:Localized osteoarthritis of left knee; 6:No contraindication to deep vein thrombosis (DVT) prophylaxis Condition at Discharge: Loyda ESTRELLACLAUDIA has been given the following list of [...] up: With: Address: When: Follow up with Checker Within 1 week With: Address: When: JOHN BUSTAMANTERING [address] [place] [address] Business (1) With: Address: When: David Talamantes [address] [place] [id number] Business (1) Comments: Keep scheduled appointment [...] DURING YOUR HOSPITAL STAY New Medications [id number], [address] [place], [place] [id number], [phone] atorvastatin (Lipitor 20 mg Tab) 1 Tablets [...] TIMES. amlodipine (amLO (more content not included)... [facility] Interdisciplinary Note - PTo n 05-04-2020 Interdisciplinary Note - PT PT Screen performed. Pt was able to stand and ambulate throughout room without difficulty and without an AD. Pt also demos appropriate ROM to knee. Would recommend to f/u with Ortho to determine if therapy is needed in the future, but no PT needed at this time [facility] IntraOperative Documentson 1 07-04-2019 IntraOperative Documents [id number]#1 .00CD:127 [facility] IntraOperative Documents [id number]#1 .00CD:127 [facility] Message from Medicareon 110 Message from Medicare [id number]# 1.00CD:127 Normal [facility] Monitor Recordon 05-04-2020 Monitor Record [id number]# 1.00CD:127 Normal [facility] Monitor Record [id number]# 1.00CD:127 Normal [facility] Monitor Record [id number]# 1.00CD:127 Normal [facility] Patient Education - Texton 1 07-04-2019 Patient Education - Text [place], [place] [facility] DISCHARGE INSTRUCTIONS: KNEE ARTHROSCOPY [...] your appointment. David Talamantes, DO [facility] [address], [place] [address] Reviewed: 10-08 [facility] Preoperative Documentson Preoperative Documents [id number]#1 .00CD:127 Normal [facility] Preoperative Documents [id number]#1 .00CD:127 Normal [facility] Prescriptions/Work Noteson 1 07-04-2019 Prescriptions/Work Notes [id number]#1 .00CD:127 Normal [facility] Capillary Glucose POCon Glucose [Mass/Vol] 183 mg/dL High 55-99 [facility] Comment on above: Performed By: #### 2 [id number] #### [facility] [address] [place] [address] Glucose [Mass/Vol] 155 mg/dL High 55-99 [facility] Comment on above: Performed By: #### 2 [id number] #### [facility] [address] [place] [address] Glucose [Mass/Vol] 113 mg/dL High 55-99 [facility] Comment on above: Result Comment: Monty pelayo RN/ Performed By: #### 2 [id number] ####[facility] [address] [place] [address] Glucose [Mass/Vol] 112 mg/dL High 55-99 [facility] Comment on above: Performed By: #### 2 [id number] #### [facility] [address] [place] [address] Glucose [Mass/Vol] 85 mg/dL Normal 55-99 [facility] Comment on above: Result Comment: Monty pelayo RN/ Performed By: #### 2 [id number] #### [facility] [address] [place] [address] Glucose [Mass/Vol] 59 mg/dL Normal 55-99 [facility] Comment on above: Result Comment: Monty pelayo RN/ Performed By: #### 2 [id number] #### [facility] [address] [place] [address] Consultation Noteon 05-03-20 Consultation Note HOSPITAL REGULATIONS : ALL Positive [...] left knee and elevate. Eh Carter DO [facility] Dictated: 05/02/2020 #[id number] Typed: 05/02/2020 #[id number] cc: DO David Nieto D.O. Normal [facility] Comment on above: Result Comment: Elec tronically Signed By: Eh Carter DO\.br\Date and Time Signed: 05/03/20 10:27 EST Monitor Recordon 05-03-2020 Monitor Record [id number]# 1.00CD:127 Normal [facility] Monitor Record [id number]# 1.00CD:127 Normal [facility] Operative Reporton 0 Operative Report Date of Surgery: 05/01/2020 SURGEON: David Talamantes D.O. PREOPERATIVE DIAGNOSIS: Left knee medial meniscal tear with underlying osteoarthritis POSTOPERATIVE DIAGNOSIS: Left knee medial meniscal tear with underlying osteoarthritis OPERATION: Left knee arthroscopy with tricompartmental chondroplasty for all three compartments with partial medial meniscectomy ANESTHESIA: General ANESTHESIOLOGIST: Gurmeet Aldridge Jr., D.O. TOURNIQUET TIME: See nurse's notes, 300 mmHg [...] The patient's condition satisfactory David Talamantes D.O. [facility] Dictated: 05/01/2020 #[id number] Typed: 05/01/2020 #[id number] cc: Randa Lanier D.O. [facility] Comment on above: Result Comment: Elec tronically Signed By: David Talamantes DO\.br\Date and Time Signed: 05/03/20 09:22 EST [...] mg/dL High (05/03/20 12:18:00) POC Device SN: [id number] (05/03/20 12:18:00) POC Username: JOSESITO BROWN (05/03/20 [...] 0.4 mg= 1 tab(s), SubLingual, q5min, PRN [place] 5/325 Tab, 1 tab(s), Oral, q4hr, PRN [...] ophthalmic emulsion, 1 drop(s), Eye-Both, BID Normal [facility] Comment on above: Result Comment: Elec [...] mg/dL High (05/03/20 07:32:00) POC Device SN: [id number] (05/03/20 07:32:00) POC Username: POC Username (05/03/20 [...] to obtain her records from her primary medical records administrator once 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 Continue [...] PRN L (more content not included)... Normal [facility] Comment on above: Result Comment: Elec tronically Signed By: Eleuterio VIGIL, John Marin.br\Date and Time Signed: 05/03/20 07:45 EST Capillary Glucose POCon 04-04 Glucose [Mass/Vol] 212 mg/dL High 55-99 [facility] Comment on above: Performed By: #### 2 [id number] #### [facility] [address] [place] [address] Glucose [Mass/Vol] 138 mg/dL High 55-99 [facility] Comment on above: Performed By: #### 2 [id number] #### [facility] [address] [place] [address] Glucose [Mass/Vol] 139 mg/dL High 55-99 [facility] Comment on above: Performed By: #### 2 [id number] #### [facility] [address] [place] [address] Glucose [Mass/Vol] 105 mg/dL High 55-99 [facility] Comment on above: Performed By: #### 2 [id number] #### [facility] [address] [place] [address] Glucose [Mass/Vol] 233 mg/dL High 55-99 [facility] Comment on above: Result Comment: Monty pelayo RN/ Performed By: #### 2 [id number] ####[facility] [address] [place] [address] Lipid Panelon 05-02-2020 Cholesterol [Mass/Vol] 160 mg/dL Normal 120-200 [facility] Comment on above: Performed By: #### 2 [id number] #### [facility] [address] [place] [address] Cholesterol in HDL [Mass/Vol] 49 mg/dL Invalid Interpretation Code [facility] Comment on above: Result Comment: HDL > or equal to 60 mg/dL: Low cardiovascular risk HDL < 40 mg/dL : High cardiovascular risk Performed By: #### 2 [id number] #### [facility] [address] [place] [address] Cholesterol in LDL [Mass/Vol] 98 mg/dL Normal <=129 [facility] Comment on above: Performed By: #### 2 [id number] #### [facility] [address] [place] [address] Cholesterol in VLDL [Mass/Vol] 12 mg/dL Normal 7-40 [facility] Comment on above: Performed By: #### 2 [id number] #### [facility] [address] [place] [address] Triglyceride [Mass/Vol] 61 mg/dL Normal <=149 [facility] Comment on above: Performed By: #### 2 [id number] #### [facility] [address] [place] [address] Monitor Recordon 05-02-2020 Monitor Record [id number]# 1.00CD:127 Normal [facility] Progress Note-Physicianon Progress Note-Physician Assessment/Plan 1. Other [...] 85.5 fL (05/01/20 18:27:00) MCH: 29.6 pg (05/01/20 18:27:00) (more content not included)... Normal [facility] Comment on above: Result Comment: Elec tronically Signed By: JUN VIGIL, Nhung\.br\Date and Time Signed: 05/02/20 10:00 EDT Troponin 3 Hr.on 05-02-2020 Troponin I.cardiac [Mass/Vol] 3.60 pg/mL Low 10.10-27.10 [facility] Comment on above: Result Comment: The 95% CI (Confidence Interval) PPV (Positive Predictive Value) for myocardial infarction in females is 38 pg/mL, in males 51 pg/mL. The results should be used in conjunction with clinical conditions of myocardial infarction. (Access High Sensitivity Troponin I Instructions For Use, [place]fr[place], January 2018) Performed By: #### 2 [id number] #### [facility] [address] [place] [address] Troponin 6 Hr.on 05-02-2020 Troponin I.cardiac [Mass/Vol] 3.90 pg/mL Low 10.10-27.10 [facility] Comment on above: Result Comment: The 95% CI (Confidence Interval) PPV (Positive Predictive Value) for myocardial infarction in females is 38 pg/mL, in males 51 pg/mL. The results should be used in conjunction with clinical conditions of myocardial infarction. (Access High Sensitivity Troponin I Instructions For Use, [place], January 2018) Performed By: #### 2 [id number] #### [facility] [address] [place] [address] Troponin 9 Hr.on 05-02-2020 Troponin I.cardiac [Mass/Vol] 5.10 pg/mL Low 10.10-27.10 [facility] Comment on above: Result Comment: The 95% CI (Confidence Interval) PPV (Positive Predictive Value) for myocardial infarction in females is 38 pg/mL, in males 51 pg/mL. The results should be used in conjunction with clinical conditions of myocardial infarction. (Access High Sensitivity Troponin I Instructions For Use, [place], January 2018) Performed By: #### 2 [id number] #### [facility] [address] [place] [address] US Carotid Duplex Bilateralo n 05-02-2020 US [...] Benny Cleveland DO Transcribed by: LUDIN Technologist: PJUA Technical Comments Velocities Right ICA/CCA 1.4 Prox [...] ECA (cm/sec): 199/15 Vert. Antegrade Yes Normal [facility] Auto Diffon 05-01-2020 Basophils/100 WBC (Bld) 0.4 % Normal 0.0-2.0 [facility] Comment on above: Order Comment: Order Added by Discern Expert. Performed By: #### 2 342539, [id number], 5707374, 9988812 #### [facility] [address] [place] [address] Basophils/Leukocytes Auto (Bld) [Pure # fraction] 0.0 E9/L Normal 0.0-0.2 [facility] Comment on above: Order Comment: Order Added by Discern Expert. Performed By: #### 2 778373, [id number], 1081447, 5357752 #### [facility] [address] [place] [address] Eosinophils/100 WBC (Bld) 1.2 % Normal 0.0-8.0 [facility] Comment on above: Order Comment: Order Added by Discern Expert. Performed By: #### 2 275056, 36116536, 9869629, 8144340 #### [facility] [address] [place] [address] Eosinophils/Leukocyte s Auto (Bld) [Pure # fraction] 0.1 E9/L Normal 0.0-0.5 [facility] Comment on above: Order Comment: Order Added by Discern Expert. Performed By: #### 2 315030, 72482173, 4498449, 6250757 #### [facility] [address] [place] [address] Lymphocytes/100 WBC (Bld) 9.7 % Low 14.0-50.0 [facility] Comment on above: Order Comment: Order Added by Son Expert. Performed By: #### 2 159315, 02559553, 5806434, 7543710 #### [facility] [address] [place] [address] Lymphocytes/Leukocyte s Auto (Bld) [Pure # fraction] 1.0 E9/L Normal 1.0-4.0 [facility] Comment on above: Order Comment: Order Added by Son Expert. Performed By: #### 2 282598, 67206321, 2409787, 4538954 #### [facility] [address] [place] [address] Monocytes/100 WBC (Bld) 4.2 % Normal 4.0-14.0 [facility] Comment on above: Order Comment: Order Added by Son Expert. Performed By: #### 2 928018, 98230950, 7201753, 6995093 #### [facility] [address] [place] [address] Monocytes/Leukocytes Auto (Bld) [Pure # fraction] 0.4 E9/L Normal 0.2-1.0 [facility] Comment on above: Order Comment: Order Added by Son Expert. Performed By: #### 2 825196, 09839551, 2974421, 6428163 #### [facility] [address] [place] [address] Neutrophils/100 WBC (Bld) 84.5 % High 36.0-75.0 [facility] Comment on above: Order Comment: Order Added by Discern Expert. Performed By: #### 2 168765, 03871341, 1771272, 1486995 #### [facility] [address] [place] [address] Neutrophils/Leukocyte s Auto (Bld) [Pure # fraction] 8.9 E9/L High 2.0-7.5 [facility] Comment on above: Order Comment: Order Added by Discern Expert. Performed By: #### 2 621172, 83176895, 9911223, 0842458 #### [facility] [address] [place] [address] BMPon 05-01-2020 Calcium [Mass/Vol] 8.9 mg/dL Normal 8.9-11.1 [facility] Comment on above: Performed By: #### 2 343782, 96867411, 7319798, 5092645 #### [facility] [address] [place] [address] Anion gap [Moles/Vol] 10 mmol/L Normal 6-16 [facility] Comment on above: Performed By: #### 2 685781, 33415824, 6216283, 6783651 #### [facility] [address] [place] [address] Chloride [Moles/Vol] 103 mmol/L Normal 101-111 [facility] Comment on above: Performed By: #### 2 904084, 48602587, 2668624, 1391562 #### [facility] [address] [place] [address] CO2 [Moles/Vol] 24 mmol/L Normal 21-31 [facility] Comment on above: Performed By: #### 2 895296, 81505209, 7111741, 6566588 #### [facility] [address] [place] [address] Creatinine [Mass/Vol] 1.6 mg/dL High 0.5-1.3 [facility] Comment on above: Performed By: #### 2 628513, 26524352, 9708976, 0080704 #### [facility] [address] [place] [address] Glucose [Mass/Vol] 167 mg/dL Normal 55-199 [facility] Comment on above: Result Comment: If t his glucose result represents a fasting glucose, interpretation should refer to the following reference range: 55-99 mg/dL Performed By: #### 2 854530, 54311234, 6797216, 5518483 #### [facility] [address] [place] [address] Potassium [Moles/Vol] 3.9 mmol/L Normal 3.5-5.3 [facility] Comment on above: Performed By: #### 2 214141, 11961805, 7468192, 9665309 #### [facility] [address] [place] [address] Sodium [Moles/Vol] 133 mmol/L Low 135-145 [facility] Comment on above: Performed By: #### 2 980563, 03779120, 3773459, 2487561 #### [facility] [address] [place] [address] Urea nitrogen [Mass/Vol] 34 mg/dL High 5-21 [facility] Comment on above: Performed By: #### 2 216575, 10366024, 3784489, 4703898 #### [facility] [address] [place] [address] Urea nitrogen/Creatinine [Mass ratio] 21 No Units High 10-20 [facility] Comment on above: Performed By: #### 2 358672, 42183939, 4855941, 3508598 #### [facility] [address] [place] [address] CBC w/ Auto Diffon 10-30-202 0 Erythrocyte distribution width (RBC) [Ratio] 13.0 % Normal 10.9-14.2 [facility] Comment on above: Performed By: #### 2 043413, 83958763, 1513649, 0194645 #### [facility] [address] [place] [address] Hematocrit (Bld) [Volume fraction] 32.4 % Low 34.0-46.0 [facility] Comment on above: Performed By: #### 2 928410, 47178830, 9246558, 1311662 #### [facility] [address] [place] [address] Hemoglobin (Bld) [Mass/Vol] 11.2 g/dL Low 12.0-16.0 [facility] Comment on above: Performed By: #### 2 066094, 19548330, 1036895, 7730230 #### [facility] [address] [place] [address] MCH (RBC) [Entitic mass] 29.6 pg Normal 27.0-34.0 [facility] Comment on above: Performed By: #### 2 381469, 96966050, 0588956, 0298136 #### [facility] [address] [place] [address] MCHC (RBC) [Mass/Vol] 34.6 g/dL Normal 31.4-36.0 [facility] Comment on above: Performed By: #### 2 885418, 20662485, 1844198, 9998352 #### [facility] [address] [place] [address] MCV (RBC) [Entitic vol] 85.5 fL Normal 80.0-100.0 [facility] Comment on above: Performed By: #### 2 055141, 79546839, 5518248, 2956211 #### [facility] [address] [place] [address] Platelet mean volume (Bld) [Entitic vol] 8.4 fL Normal 6.4-10.8 [facility] Comment on above: Performed By: #### 2 413248, 86015745, 4438422, 7724704 #### [facility] [address] [place] [address] Platelets (Bld) [#/Vol] 242.0 E9/L Normal 150.0-500.0 [facility] Comment on above: Performed By: #### 2 130778, 21502813, 4640262, 6279241 #### [facility] [address] [place] [address] RBC (Bld) [#/Vol] 3.8 E12/L Low 4.3-5.9 [facility] Comment on above: Performed By: #### 2 568345, 10938837, 6350782, 4950024 #### [facility] [address] [place] [address] WBC corrected for nucl RBC Auto (Bld) [#/Vol] 10.5 E9/L Normal 4.0-11.0 [facility] Comment on above: Performed By: #### 2 712003, 57138659, 6621129, 9128701 #### [facility] [address] [place] [address] Capillary Glucose POCon 04-04 Glucose [Mass/Vol] 84 mg/dL Normal 55-99 [facility] Comment on above: Result Comment: Repe at Test Performed By: #### 2 27658796 #### [facility] [address] [place] [address] Glucose [Mass/Vol] 88 mg/dL Normal 55-99 [facility] Comment on above: Result Comment: Repe at Test Performed By: #### 2 [id number] #### [facility] [address] [place] [address] Coding Summary.on 05-01-2020 Coding Summary. CODING DATE: 05/01/2020 FINAL [facility] STATUS: Home (Routine DC) PAYOR: Medicare APC [...] [place] CphT Date Saved: 05/01/2020 08:[address] [facility] Coding Summary. CODING DATE: 04/25/2020 FINAL [facility] STATUS: Home (Routine DC) PAYOR: Medicare APC [...] [place] [facility]ph[facility] Date Saved: 04/25/2020 04:[address] [facility] Consent for Treatmenton 04-04 Consent for Treatment [id number]#1 .00CD:127 [facility] Consent for Treatment [id number]#1 .00CD:127 [facility] H&P Updateon 05-01-2020 H&P Update [id number]#1 .00CD:127 [facility] Main OR PACU I Recordon 04-04 Main OR PACU I Record PACU Phase I Docum ent Type FT Summary Primary Physician: David Talamantes DO Finalized Date/Time: 05/01/20 18:04:55 Pt. Name: CLAUDIA ESTRELLA Katerin Ramirez/Sex: 1950 Female Med Rec #: [id number] Physician: David Talamantes DO Financial #: [id number] Pt. Type: A Room/Bed: [place] [address] Admit/Disch: 05/01/20 11:43:14 - Institution: Case Times [...] Signed By: Ju Bates RN 05/01/20 18:04 Normal [facility] Main OR PACU II Recordon Main OR PACU II Record PACU Phase II Document Type FT Summary Primary Physician: David Talamantes DO Finalized Date/Time: 05/01/20 20:09:08 Pt. Name: CLAUDIA ESTRELLA/Sex: 1950 Female Med Rec #: [id number] Physician: David Talamantes DO Financial #: [id number] Pt. Type: O Room/Bed: [place] [address] Admit/Disch: 05/01/20 11:43:14 - Institution: Case Times [...] By: Yessy Curran RN 05/01/20 20:09 Normal [facility] Main OR Preoperative Recordo n 05-01-2020 Main OR Preoperative Record PreOp Document Type FT Summary Primary Physician: David Talamantes DO Finalized Date/Time: 05/01/20 14:45:06 Pt. Name: CLAUDIA ESTRELLA/Sex: 1950 Female Med Rec #: [id number] Physician: David Talamantes DO Financial #: [id number] Pt. Type: A Room/Bed: [place] [address] Admit/Disch: 05/01/20 11:43:14 - Institution: Case Times [...] Signed By: Viky Hernández RN 05/01/20 14:45 [facility] Monitor Recordon 05-01-2020 Monitor Record [id number]# 1.00CD:127 Normal [facility] Monitor Record [id number]# 1.00CD:127 Normal [facility] Outside Radiologyon 05-01-20 20 Outside Radiology [id number]#1 .00CD:127 Normal [facility] Outside Recordson 05-01-2020 Outside Records [id number]#1 .00CD:127 Normal [facility] Progress Note-Nurseon 2019 Progress Note-Nurse At 1653--Gisela poct stated she needed a nurse in bay 12 stat. This nurse arrived to room. Patient stated she has CP 10/10 midsternal, heaviness. Jhoana RN at bedside as well. Vitals obtained. Dr. Aldridge paged stat. 1654--1 dose 0.4 mg Nitro given sublingual. Bp 130/73 95% 2l NC 1657--Patient states CP is down 3/10, heaviness. Patient vomited 50 ml of bile. 1657--114/68 70 97% NC 2L Patient reports 0/10 pain. 1699--0/10 pain. EKG obtained. 1704--Dr. Aldridge at bedside, [...] comes off in 2 days). Informed Ross WU that Dr. Talamantes requests patients to take 325 mg of aspirin at home to prevent blood clots--Ross WU will discuss with Dr. Barahona. Patient is allowed to bear weight as tolerated with crutches. 1754--Patient and daughter with belongings taken up to 306. 1804--Outpatient discharge paperwork reviewed with patient and daughter at this time--noted as this could change d/t plan of care on the floor. Paperwork, follow up appointment card, pictures and printed script given to daughter at bedside. 1829--Attempted to call Dr. Talamantes--call went to voicemail. 1835--This nurse spoke with Dr. Carter (circulation librarian physician), informed Dr. Carter reason for admission and patient's room number. Dr. Aldridge at bedside at 1705--Physician looked at patient EKG strip that was printed. Normal [facility] Progress Note-Nurse 1528: pt. medicated with 0.4mg [...] dtr. also at bedside and updated. Normal [facility] Troponin 0 Hr.on 05-01-2020 Troponin I.cardiac [Mass/Vol] 4.10 pg/mL Low 10.10-27.10 [facility] Comment on above: Result Comment: The 95% CI (Confidence Interval) PPV (Positive Predictive Value) for myocardial infarction in females is 38 pg/mL, in males 51 pg/mL. The results should be used in conjunction with clinical conditions of myocardial infarction. (Access High Sensitivity Troponin I Instructions For Use, [place], January 2018) Performed By: #### 2 [id number] #### [facility] [address] [place] [address] eGFRon 05-01-2020 GFR/1.73 sq M.predicted among blacks MDRD (S/P/Bld) [Vol rate/Area] 39 mL/min/1.73 m2 Low >=59 [facility] Comment on above: Order Comment: Order added by Discern Expert. Result Comment: eGFR is race adjusted. AA=. Performed By: #### 2 298142, 04402352, 9756491, 7048639 #### [facility] [address] [place] [address] GFR/1.73 sq M.predicted among non-blacks MDRD (S/P/Bld) [Vol rate/Area] 32 mL/min/1.73 m2 Low >=59 [facility] Comment on above: Order Comment: Order added by Discern Expert. Result Comment: Forklift Truck Mechanic jayden kidney disease could be indicated at eGFR's of less than 60 mL/min/1.73m2. Kidney failure is indicated at less than 15 mL/min/1.73m2. Performed By: #### 2 430451, 10833837, 2779636, 6361261 #### [facility] [address] [place] [address] Coding Summary.on 04-28-2020 Coding Summary. CODING DATE: 04/28/2020 FINAL [facility] DSC STATUS: Home (Routine DC) PAYOR: Medicare ADMIT [...] CphT Date Saved: 04/28/2020 09:19 am Normal [facility] Outpatient Surgery Discharge Instructionon 04-28-2020 Outpatient Surgery Discharge Instruction [address] [address] Patient Discharge Instructions PERSON INFORMATION Name: CLAUDIA ESTRELLA Date of : 1950 Current Date: 04/28/2020 18:08:04 PHYSICIANS Admitting Physician: David Talamantes DO Discharge Diagnosis: Acute medial meniscus tear of left knee; Localized osteoarthritis of left knee CLAUDIA ESTRELLA has been given the following [...] THE NEAREST EMERGENCY ROOM OR CALL 911 I, CLAUDIA ESTRELLA, have received the attached patient education materials/instruction s and have verbalized understanding: May we do a follow up call? Yes No I was present when discharge instructions were given Patient Signature Date Clinican/Nurse Signature Date Follow up: With: Address: When: David Talamantes [address] [place] [id number] Business (1) Comments: Keep scheduled appointment Type Location Start [facility] 05/01/2020 2:15 PM 05/01/2020 2:55 PM Confirmed Pharmacy Information: Thank you for choosing [facility] HERE ARE THE MEDICATION CHANGES THAT [...] tab Oral Daily. PATIENT EDUCATION INFORMATION Instructions: [place], [place] [facility] DISCHARGE INSTRUCTIONS: KNEE ARTHROSCOPY [...] result of (more content not included)... Normal [facility] Consent for Procedure/Surger yon 04-27-2020 Consent for Procedure/Surgery [id number]# 1.00CD:127 Normal [facility] Outside Recordson 04-27-2020 Outside Records [id number]# 1.00CD:127 Normal [facility] Priority Order-Trina 2019 Priority Order-STAT Comment Invalid Interpretation Code [facility] Comment on above: Result Comment: Rece ived Performed at: [facility] [address] [facility] [place] [id number] MD Bladimir Briones Performed By: #### 2 [id number] #### [facility] [address] [place] [address] SARS-CoV-2, NAAon 04-25-2020 SARS-CoV-2 (COVID-19) RNA JAYASHREE+probe Ql (Resp) Not detected Invalid Interpretation Code Not Detected [facility] Comment on above: Result Comment: This nucleic acid amplification test was developed and its performance characteristics determined by [facility]. Nucleic acid amplification tests include PCR and [...] detected) result in this assay. Performed at: [facility] [address] [facility] [place] [id number] MD Bladimir Briones Performed By: #### 2 [id number] #### [facility] [address] [place] [address] XR Chest 2 Viewson 0 XR Chest [...] M.D. Transcribed by: LUDIN Technologist: RRB Normal [facility] BUNon 04-24-2020 Urea nitrogen [Mass/Vol] 36 mg/dL High 5-21 [facility] Comment on above: Performed By: #### 1 [id number], 0868573, 3603137, 0845636, 0010010, 8852411 ####[facility] [address] [place] [address] CBC w/Indiceson 04-24-2020 Erythrocyte distribution width (RBC) [Ratio] 13.0 % Normal 10.9-14.2 [facility] Comment on above: Performed By: #### 1 [id number], 2826906, 5247513, 6533292, 2428945, 0595075 ####[facility] [address] [place] [address] Hematocrit (Bld) [Volume fraction] 34.1 % Normal 34.0-46.0 [facility] Comment on above: Performed By: #### 1 6842661, 2217281, 8998639, 8839317, 2058723, 6837173 ####[facility] [address] [place] [address] Hemoglobin (Bld) [Mass/Vol] 11.6 g/dL Low 12.0-16.0 [facility] Comment on above: Performed By: #### 1 6911196, 2138168, 0443275, 0685096, 9621599, 2702893 ####[facility] [address] [place] [address] MCH (RBC) [Entitic mass] 29.5 pg Normal 27.0-34.0 [facility] Comment on above: Performed By: #### 1 7586101, 7706045, 6762208, 3805407, 0857341, 9291108 ####[facility] [address] [place] [address] MCHC (RBC) [Mass/Vol] 34.1 g/dL Normal 31.4-36.0 [facility] Comment on above: Performed By: #### 1 7924807, 9120785, 2931995, 2558969, 3001902, 6524067 ####[facility] [address] [place] [address] MCV (RBC) [Entitic vol] 86.5 fL Normal 80.0-100.0 [facility] Comment on above: Performed By: #### 1 0904001, 7206589, 3515432, 9490150, 4479129, 7039443 ####[facility] [address] [place] [address] Platelet mean volume (Bld) [Entitic vol] 9.4 fL Normal 6.4-10.8 [facility] Comment on above: Performed By: #### 1 4671568, 7751754, 9020780, 9416590, 9707288, 8048385 ####[address] [place] [address] Platelets (Bld) [#/Vol] 246.0 E9/L Normal 150.0-500.0 [facility] Comment on above: Performed By: #### 1 8796390, 1177047, 4883288, 4752028, 0489549, 9069807 ####[address] [place] [address] RBC (Bld) [#/Vol] 3.9 E12/L Low 4.3-5.9 [facility] Comment on above: Performed By: #### 1 2745658, 8507948, 3384383, 4746744, 1323562, 6878645 ####[address] [place] [address] WBC corrected for nucl RBC Auto (Bld) [#/Vol] 10.0 E9/L Normal 4.0-11.0 [facility] Comment on above: Performed By: #### 1 9261526, 4841142, 5147043, 5549956, 4276545, 3328721 ####[address] [place] [address] Consent for Treatmenton 04-03 Consent for Treatment [id number]#1 .00CD:127 Normal [facility] Creatinineon 04-24-2020 Creatinine [Mass/Vol] 1.6 mg/dL High 0.5-1.3 [facility] Comment on above: Performed By: #### 1 7138084, 7146018, 9694552, 6898687, 2446605, 2578229 ####[facility] [address] [place] [address] Glu Fastingon 04-24-2020 Glucose [Mass/Vol] 81 mg/dL Normal 55-99 [facility] Comment on above: Performed By: #### 1 9156678, 3849357, 2912188, 8284451, 5062964, 1031397 ####[facility] [address] [place] [address] Lyteson 04-24-2020 Anion gap [Moles/Vol] 13 mmol/L Normal 6-16 [facility] Comment on above: Performed By: #### 1 7322911, 8381285, 2106237, 5673220, 6308476, 2088912 ####[facility] [address] [place] [address] Chloride [Moles/Vol] 103 mmol/L Normal 101-111 [facility] Comment on above: Performed By: #### 1 1293806, 9176899, 9519213, 4514069, 5710270, 7793476 ####[facility] [address] [place] [address] CO2 [Moles/Vol] 26 mmol/L Normal 21-31 [facility] Comment on above: Performed By: #### 1 8298941, 1981529, 1475064, 2436973, 7900041, 6790307 ####[facility] [address] [place] [address] Potassium [Moles/Vol] 3.9 mmol/L Normal 3.5-5.3 [facility] Comment on above: Performed By: #### 1 1782928, 3726910, 9632089, 2158916, 3549439, 4060009 ####[facility] [address] [place] [address] Sodium [Moles/Vol] 138 mmol/L Normal 135-145 [facility] Comment on above: Performed By: #### 1 0814039, 9591443, 8836684, 6279753, 9709166, 2168063 ####[facility] [address] [place] [address] Physician Orderon 04-24-2020 Physician Order [id number]# 1.00CD:127 Normal [facility] eGFRon 04-24-2020 GFR/1.73 sq M.predicted among blacks MDRD (S/P/Bld) [Vol rate/Area] 39 mL/min/1.73 m2 Low >=59 [facility] Comment on above: Order Comment: Order added by Discern Expert. Result Comment: eGFR is race adjusted. AA=. Performed By: #### 1 5104341, 5908824, 8749835, 2159068, 4830511, 1676972 ####[facility] [address] [place] [address] GFR/1.73 sq M.predicted among non-blacks MDRD (S/P/Bld) [Vol rate/Area] 32 mL/min/1.73 m2 Low >=59 [facility] Comment on above: Order Comment: Order added by Discern Expert. Result Comment: Forklift Truck Mechanic jayden kidney disease could be indicated at eGFR's of less than 60 mL/min/1.73m2. Kidney failure is indicated at less than 15 mL/min/1.73m2. Performed By: #### 1 0746528, 8578008, 1005894, 3241134, 0778366, 4387579 ####[facility] [address] [place] [address] Physician Orderon 04-13-2020 Physician Order [id number]# 1.00CD:127 Normal [facility] Physician Orderon 04-10-2020 Physician Order [id number]# 1.00CD:127 Normal [facility] Vital Signs Date Time Vital Sign Value Performing Clinician Facility 05-30-2023 15:40-0500 Body height 147.32 cm [facility] Other [facility] Other 05-30-2023 15:40-0500 Body mass index (BMI) [Ratio] 26.92 kg/m2 [facility] Other [facility] Other 05-30-2023 15:40-0500 Body temperature 97 [degF] [facility] Other [facility] Other 05-30-2023 15:40-0500 Body weight 58.42 kg [facility] Other [facility] Other 05-30-2023 15:40-0500 Diastolic blood pressure 71 mm[Hg] [facility] Other [facility] Other 05-30-2023 15:40-0500 Respiratory rate 18 /min [facility] Other [facility] Other 05-30-2023 15:40-0500 SaO2% (BldA) [Mass fraction] 97 % [facility] Other [facility] Other 05-30-2023 15:40-0500 Systolic blood pressure 153 mm[Hg] [facility] Other [facility] Other 01-30-2023 15:40-0400 Body height 147.32 cm [facility] Other [facility] Other 01-30-2023 15:40-0400 Body mass index (BMI) [Ratio] 26.83 kg/m2 [facility] Other [facility] Other 01-30-2023 15:40-0400 Body temperature 97.7 [degF] [facility] Other [facility] Other 01-30-2023 15:40-0400 Body weight 58.24 kg [facility] Other [facility] Other 01-30-2023 15:40-0400 Diastolic blood pressure 67 mm[Hg] [facility] Other [facility] Other 01-30-2023 15:40-0400 Respiratory rate 18 /min [facility] Other [facility] Other 01-30-2023 15:40-0400 SaO2% (BldA) [Mass fraction] 98 % [facility] Other [facility] Other 01-30-2023 15:40-0400 Systolic blood pressure 136 mm[Hg] [facility] Other [facility] Other 08-30-2022 14:40-0500 Body height 147.32 cm [facility] Other [facility] Other 08-30-2022 14:40-0500 Body mass index (BMI) [Ratio] 26.29 kg/m2 [facility] Other [facility] Other 08-30-2022 14:40-0500 Body temperature 98.6 [degF] [facility] Other [facility] Other 08-30-2022 14:40-0500 Body weight 57.06 kg [facility] Other [facility] Other 08-30-2022 14:40-0500 Diastolic blood pressure 72 mm[Hg] [facility] Other [facility] Other 08-30-2022 14:40-0500 Respiratory rate 18 /min [facility] Other [facility] Other 08-30-2022 14:40-0500 SaO2% (BldA) [Mass fraction] 96 % [facility] Other [facility] Other 08-30-2022 14:40-0500 Systolic blood pressure 139 mm[Hg] [facility] Other [facility] Other 05-30-2022 11:40-0500 Body height 147.32 cm [facility] Other [facility] Other 05-30-2022 11:40-0500 Body mass index (BMI) [Ratio] 27.25 kg/m2 [facility] Other [facility] Other 05-30-2022 11:40-0500 Body temperature 96.2 [degF] [facility] Other [facility] Other 05-30-2022 11:40-0500 Body weight 59.15 kg [facility] Other [facility] Other 05-30-2022 11:40-0500 Diastolic blood pressure 71 mm[Hg] [facility] Other [facility] Other 05-30-2022 11:40-0500 SaO2% (BldA) [Mass fraction] 97 % [facility] Other [facility] Other 05-30-2022 11:40-0500 Systolic blood pressure 151 mm[Hg] [facility] Other [facility] Other 01-27-2022 12:20-0400 Body height 147.32 cm [facility] Other [facility] Other 01-27-2022 12:20-0400 Body mass index (BMI) [Ratio] 26.83 kg/m2 [facility] Other [facility] Other 01-27-2022 12:20-0400 Body temperature 98 [degF] [facility] Other [facility] Other 01-27-2022 12:20-0400 Body weight 58.24 kg [facility] Other [facility] Other 01-27-2022 12:20-0400 Diastolic blood pressure 69 mm[Hg] [facility] Other [facility] Other 01-27-2022 12:20-0400 Respiratory rate 18 /min [facility] Other [facility] Other 01-27-2022 12:20-0400 SaO2% (BldA) [Mass fraction] 96 % [facility] Other [facility] Other 01-27-2022 12:20-0400 Systolic blood pressure 136 mm[Hg] [facility] Other [facility] Other 09-20-2021 16:00-0400 Body height 147.32 cm [facility] Other [facility] Other 09-20-2021 16:00-0400 Body mass index (BMI) [Ratio] 27.42 kg/m2 [facility] Other [facility] Other 09-20-2021 16:00-0400 Body temperature 97.6 [degF] [facility] Other [facility] Other 09-20-2021 16:00-0400 Body weight 59.51 kg [facility] Other [facility] Other 09-20-2021 16:00-0400 Diastolic blood pressure 76 mm[Hg] [facility] Other [facility] Other 09-20-2021 16:00-0400 Respiratory rate 18 /min [facility] Other [facility] Other 09-20-2021 16:00-0400 SaO2% (BldA) [Mass fraction] 97 % [facility] Other [facility] Other 09-20-2021 16:00-0400 Systolic blood pressure 169 mm[Hg] [facility] Other [facility] Other 05-18-2021 15:40-0500 Body height 147.32 cm [facility] Other [facility] Other 05-18-2021 15:40-0500 Body mass index (BMI) [Ratio] 26.5 kg/m2 [facility] Other [facility] Other 05-18-2021 15:40-0500 Body temperature 97.2 [degF] [facility] Other [facility] Other 05-18-2021 15:40-0500 Body weight 57.52 kg [facility] Other [facility] Other 05-18-2021 15:40-0500 Diastolic blood pressure 79 mm[Hg] [facility] Other [facility] Other 05-18-2021 15:40-0500 Respiratory rate 18 /min [facility] Other [facility] Other 05-18-2021 15:40-0500 SaO2% (BldA) [Mass fraction] 97 % [facility] Other [facility] Other 05-18-2021 15:40-0500 Systolic blood pressure 137 mm[Hg] [facility] Other [facility] Other Encounters Encounter Date Encounter Type Care Provider Facility Start: 08-04-2023 End: 08-04-2023 ambulatory [facility] Start: 07-11-2023 End: 07-11-2023 ambulatory [facility] Other [facility] Other Start: 07-11-2023 Telephone encounter [facility] Start: 05-30-2023 End: 05-30-2023 ambulatory [facility] Other [facility] Other Start: 05-30-2023 Office outpatient visit 25 minutes [facility] Start: 05-23-2023 End: 05-23-2023 ambulatory [facility] Other [facility] Other Start: 05-23-2023 Telephone encounter [facility] Start: 02-24-2023 End: 02-24-2023 ambulatory CARMINA BOBBY [facility] Start: 01-30-2023 End: 01-30-2023 ambulatory [facility] Other [facility] Other Start: 01-30-2023 Encounter by jose parrish [facility] Start: 01-30-2023 Office outpatient visit 25 minutes [facility] Start: 10-27-2022 End: 10-27-2022 ambulatory [facility] Other [facility] Other Start: 10-27-2022 Telephone encounter [facility] Start: 10-26-2022 End: 10-27-[address] JOHN PERDOOM Facility:[facility] Start: 09-12-2022 End: 09-12-2022 [facility] Start: 08-30-2022 End: 08-30-2022 ambulatory [facility] Other [facility] Other Start: 08-30-2022 Office outpatient visit 25 [...] End: 05-30-2022 ambulatory [facility] Other [facility] Other Start: 05-30-2022 Office outpatient visit 25 minutes [facility] Start: 05-27-2022 End: 05-28-[address] JOHN PERDOMO Facility:[facility] Start: 05-23-2022 Telephone encounter [facility] Start: 05-23-2022 End: 05-24-[address] JOHN PERDOMO [employer] Other Start: 05-14-2022 End: 05-15-2022 ambulatory CARMINA ROSALES Facility:[facility] Start: 05-12-2022 End: 05-12-2022 ambulatory [facility] Other [facility] Other Start: 05-12-2022 Telephone encounter [facility] Start: 05-11-2022 End: 05-12-2022 ambulatory CARMINA ROSALES Facility:[facility] Start: 03-17-2022 End: 03-18-[address] JOHN PERDOMO Facility:[facility] Start: 01-27-2022 End: 01-27-2022 ambulatory [facility] Other [facility] Other Start: 01-27-2022 Office outpatient visit 25 minutes [facility] Start: 01-21-2022 End: 01-22-[address] JOHN PERDOMO Facility:[facility] Start: 01-17-2022 End: 01-18-[address] JOHN PERDOMO Facility:[facility] Start: 01-13-2022 End: 01-13-2022 ambulatory [facility] Other [facility] Other Start: 01-13-2022 Telephone encounter [facility] Start: 12-16-2021 Telephone encounter [facility] Start: 12-16-2021 End: 12-17-[address] JOHN PERDOMO [facility] [employer] Other Start: 12-09-2021 End: 12-10-2021 ambulatory JOHN PERDOMO Facility:[facility] Start: 12-08-2021 End: 12-08-2021 ambulatory [facility] Other [facility] [facility] Other Start: 12-08-2021 Telephone encounter [facility] Start: 12-07-2021 End: 12-07-[address] JOHN PERDOMO Facility: Start: 12-06-2021 End: 12-07-[address] JOHN PERDOMO Facility:[facility] Start: 12-01-2021 End: 12-02-[address] JOHN PERDOMO Facility:[facility] Start: 11-19-2021 End: 11-20-[address] JOHN PERDOMO Facility:[facility] Start: 11-01-2021 End: 11-01-2021 ambulatory [facility] Other [facility] Other Start: 11-01-2021 Encounter by jose abreu link [facility] Start: 10-28-2021 End: 10-28-2021 ambulatory [facility] Other [facility] Other Start: 10-28-2021 Telephone encounter [facility] Start: 10-13-2021 End: 10-13-2021 ambulatory [facility] Other [facility] Other Start: 10-13-2021 Encounter by jose r link [facility] Start: 10-06-2021 End: 10-06-2021 ambulatory [facility] Other [facility] [facility] Other Start: 10-06-2021 Telephone encounter [facility] Start: 09-21-2021 End: 09-21-2021 ambulatory [facility] Other [facility] [facility] Other Start: 09-21-2021 Telephone encounter [facility] Start: 09-20-2021 End: 09-20-2021 ambulatory [facility] Other [facility] [facility] Other Start: 09-20-2021 Office outpatient visit 25 minutes [facility] Start: 08-01-2021 End: 08-01-2021 ambulatory [facility] Other [facility] Other Start: 08-01-2021 Encounter by compute r link [facility] Start: 07-18-2021 End: 07-18-2021 ambulatory [facility] Other [facility] Other Start: 07-18-2021 Encounter by Flextrip r link [facility] Start: 05-18-2021 End: 05-18-2021 ambulatory [facility] Other [facility] Other Start: 05-18-2021 Office outpatient visit 25 minutes [facility] Immunizations Immunization Date Immunization Notes Care Provider Fa cility NEGATED: Highlighted row has not occurred!06-05-2019 influenza, high dose seasonal, preservative-free Patient Objection [facility] Other [facility] Other Payers Date Payer Category Payer Medicare [id number] 1958 Unknown [id number] 1950 Unknown [id number] 2.16.8 40.1.479089.3.579.2.647 1950 Unknown [id number] 2.16.84 0.1.148602.3.579.2.593 1950 Unknown [id number] 2.16.84 0.1.210979.3.579.2.593 1950 Unknown [id number] 2.16.84 0.1.073399.3.579.2.593 1950 Unknown [id number] 2.16.84 0.1.370651.3.579.2.593 1950 Unknown [id number] 2.16.84 0.1.754467.3.579.2.593 1950 Unknown [id number] 2.16.84 0.1.714718.3.579.2.593 1950 Unknown [id number] 2.16.84 0.1.935518.3.579.2.593 1951 Unknown [id number] 2.16.84 0.1.963978.3.579.2.593 1950 Unknown [id number] 2.16.84 0.1.559358.3.579.2.593 1950 Unknown [id number] 2.16.84 0.1.528628.3.579.2.593 1951 Unknown [id number] 2.16.84 0.1.790690.3.579.2.593 1950 Unknown [id number] 2.16.84 0.1.478146.3.579.2.593 1951 Unknown [id number] 2.16.84 0.1.083797.3.579.2.593 1951 Unknown [id number] 2.16.84 0.1.636282.3.579.2.593 1950 Unknown [id number] 2.16.84 0.1.779733.3.579.2.593 1950 Unknown [id number] 2.16.84 0.1.261232.3.579.2.593 1950 Unknown [id number] 2.16.84 0.1.183359.3.579.2.593 1950 Unknown [id number] 2.16.84 0.1.956014.3.579.2.593 1950 Unknown [id number] 2.16.84 0.1.006479.3.579.2.593 1950 Unknown [id number] 2.16.84 0.1.725041.3.579.2.593 Social History Date Type Detail Facility Unknown if ever smoked [facility] Other Sex Assigned At Sex Assigned At Bir th [facility] Other Clinical Notes 04-27-2020 to 08-04-2023 Note Date & Type Note Facility 08-04-2023 Note [facility] Subjective Claudia Estrella is a 73 [...] Rfl: 3 ergocalciferol (Vitamin D-2) 1.25 MG (00500 UT) capsule, Take 1 capsule by mouth 1 (one) time per week., Disp: , Rfl: ferrous sulfate 325 (65 Fe) M (more content not included)... [facility] 07-11-2023 Note Reviewed pt's b/p si tting [...] to evaluate symptoms and response. Carmina Rosales [employer]SEMBLER SE[employer] Division of Cardiology, [place]- [phone] Pager- [phone] Email- [email or web address] 05-30-2023 Evaluation note Encounter Date Diagnosis Assessment [...] has adequate Iron stores. Continue oral iron. [employer] [facility] [facility] Other [id number] NoteNYHC II Currently euvolemic without exacerbation Continue GDMT- Diuretic therapy- As per nephrology recommendations she takes Bumex 3 mg twice daily and metolazone 2.5 mg as needed Monitor daily weights, I&O, fluid restriction 1.5-2L/day, renal function and electrolytesUnFort [facility]08-[facility]-2023 NoteHypertension is Well-controlled blood pressure 131/71 Continue all medications Follow-up with nephrology as scheduledUnFort Hamilton Hospital 02-24-2023 NoteCoronary artery disease is stable Continue GDMT- Continue aspirin, Lipitor and metoprolol continue risk factor modifications- heart healthy diet, regular exercise as tolerated and continue all medications.[facility] 02-24-2023 NoteUTP CARDIOLOGY PROGRESS NOTE HPI: Claudia [...] tablet 3 ergocalciferol (Vitamin D-2) 1.25 MG (08780 UT) capsule Take 1 capsule by mouth [...] moderately elevated right-sided pressures, (more content not included)...[facility]08-25-2023 NotePatient here for 6 mo follow up CAD, chronic diastolic heart failure, hypertension, and CKD. Had labs about 1 month ago. Still gets the chest pain, but says it's better. Gets winded when walking long distances. Doing great. Review of Systems Cardiovascular: Positive for chest pain (continues to improve) and dyspnea on exertion. All other systems reviewed and are negative.[facility] 01-30-2023 Evaluation note* Encounter Date Diagnosis Assessment [...] has adequate Iron stores. Continue oral iron. [employer] [facility] [facility] Other 03-13-2023 NoteUT [facility] Subjective Claudia Estrella is a 72 y.o. [...] is alert and orien (more content not included)...[facility]02-28-2023 Evaluation note* Encounter Date Diagnosis Assessment Notes [...] past. Will defer this to the PCP. [facility] Other 11-28-2022 Evaluation note* Encounter Date Diagnosis [...] an adequate Iron stores. Continue oral iron. [facility] [facility] Other 11-21-2022 Evaluation note* Encounter Date Diagnosis Assessment Notes Treatment Notes Treatment Clinical Notes May, CKD (chronic kidney disease) stage 4, GFR 15-29 ml/min (ICD-10 - N18.4) [facility] Other 07-28-2022 Evaluation note* Encounter Date Diagnosis [...] an adequate Iron stores. Continue oral iron. [facility] [facility] Other 03-22-2022 Evaluation note* Encounter Date Diagnosis Assessment Notes Treatment Notes Treatment Clinical Notes Aug, Hypokalemia (ICD-10 - E87.6) [facility] Other 03-21-2022 Evaluation note* Encounter Date Diagnosis [...] an adequate Iron stores. Continue oral iron. [facility] Other 01-16-2022 Evaluation note* Encounter Date Diagnosis Assessment Notes Treatment Notes Treatment Clinical Notes Jul, Hyperuricemia (ICD-1 0 - E79.0) [facility] Other 11-16-2021 Evaluation note* Encounter Date Diagnosis [...] an adequate Iron stores. Continue oral iron. [facility] Other 11-02-2020 NoteRounds at this time with MURPHY Amor, Dr Guzmán. Daughter bedside. Patient is alert & involved [...] the schedule. MURPHY Amor spoke with Dr Guzmán & verified that she spoke with Trudy Suazo of Cardio who is adding patient to todays list, unknown time. Emotional support pro vided. Patient requesting to speak with Patient Experience. MURPHY Amor notified Maryan Lopez. 1:30 PM - Per BRYCE Au, patient has been discharged home & patient very upset. PT=No needs. Did not see OT eval done prior to d/c. Per Dr Guzmán - patient did not have stress test done today as it was not on schedule. MURPHY Amor notified Taylor Fisher & Maryan Lopez.[facility] HospitalComment on above:Result Comment: Electronically Signed By: Kip WU, Zuleyma Redman.rashmi\Date and Time Signed: 05/04/20 13:53 [id number] NoteBasic Information Cardiology Progress Subjective Cardiology consulted over weekend for chest discomfort post operatively. Her EKG was non-acute and troponin trended negative. She does have a medical records administrator and reportedly had stress testing in August [...] mg/dL High (05/04/20 12:12:00) POC Device SN: [id number] (05/04/20 12:12:00) POC Username: NESHA COTA (05/04/20 [...] prefers all testing to be performed at [facility]. Faxed notes to her primary medical records administrator's office, Dr Fish. Attempted to schedule stress testing with [facility]. Ordered: EC Stress Echo Complete w/ Contrast 2. Hypertension (I10: Essential (primary) hypertension) Continue current medications and follow up with primary medical records administrator on discharge. 3. Diabetes (E11.9: Type 2 [...] discuss this management further with her primary medical records administrator, but agreeable to starting statin for now. Patient is offered in-patient stress echocardiogram but declines as she wants to be discharged. She is offered out patient stress testing at [facility] tomorrow am and she prefers to have this done at [facility]. Per Central Scheduling at [facility], Dobutamine Stress Echo's are not performed at the facility. She will have close FU with Dr Fish to move forward with testing. D/W Dr Guzmán. Faxed info from [facility] Hospital stay to her primary medical records administrator. Attestation Discussed patient findings and plan of [...] tab(s), Oral, Bedtime saturnino (more content not included)...[facility] HospitalComment on above: Result Comment: Electronically Signed By: Trudy SUAZO CNP\.br\Date and Time Signed: 05/04/20 13:15 EST\.br\Electronically Co-Signed By: Darrell VIGIL, Jay Jay Conklin\.br\Date and Time Co-Signed: 05/04/20 13:19 [id number] NoteIV removed. nurse windows server specialist emptied. patient and patients daughter verbalized understanding of discharge teaching. patient refused flu vaccination. patient did not verbalize any questions or concerns atthis time.[facility]11-02-[facility] Note Admission Information Admitting Physician - JUN [...] another day versus following up with her medical records administrator and she has opted to do the latter. This is reasonable as she is chest pain-free at rest as well as on exertion. Patient is already on lisinopril, metoprolol, aspirin. Lipitor 20 mg was added for further risk reduction. She will follow-up with her primary medical records administrator Dr. Fsih. Regarding her recent Ortho surgery she will do weightbearing activity as tolerated and use crutchesfor assistance with ambulation. Dr. Kushal Guzmán Hospitalist This report was transcribed using voice recognition software. Every effort was made to ensure accuracy, however, inadvertently computerized t rail turner mistakes may be present. Significant Findings POWERSCRIBE [...] pain) Ordered: Hospital Discharge Day 30 Min/Less 11030 2. Hypertension (I10: Essential (primary) hypertension) Ordered: Hospital Discharge Day 30 Min/Less 76267 3. Diabetes (E11.9: Type 2 diabetes mellitus without complications) Ordered: atorvastatin, 20 mg = 1 tab(s), Oral, Bedtime, # 30 tab(s), Refills(s) 1, Pharmacy: [facility]/pharmacy #[id number], 141.5, cm, 04/24/20 13:16:00 EDT, Height/Length Dosing, 69, kg, 05/02/20 5:50:00 EDT, Weight Dosing Hospital Discharge Day 30 Min/Less 21027 4. Acute medial meniscus tear of left knee (S83.242A: Other tear of medial meniscus, current injury, left knee, initial encounter) Ordered: Hospital Discharge Day 30 Min/Less 16884 5. Localized osteoarthritis of left knee (M17.12: Unilateral primary osteoarthritis, left knee) Ordered: Hospital Discharge Day 30 Min/Less 51293 6. No contraindication to deep vein thrombosis (DVT) prophylaxis (Z78.9: Other specified health status) Ordered: Hospital Discharge Day 30 Min/Less 36801 Bruit (R09.89: Other specified symptoms and signs [...] With When Contact Information Follow up with Checker Within 1 week Additional Instructions: JOHN [facility] [address] [place] [address]- Business (1) Additional Instructions: David Talamantes [address] [place] [phone]- Business (1) Additional Instructions: Keep scheduled (more content not included)...[facility] HospitalComment on above:Result Comment: Electronically Signed By: Kushal GUZMÁN MD\.br\Date and Time Signed: 05/04/20 12:[id number] Amir rounded with patient earlier. CRM [...] time. Anticipated discharge 05/04/2020 home. CRM to follow.[facility] HospitalComment on above:Result Comment: Electronically Signed By: Terri Berger RN\.br\Date and Time Signed: 05/02/20 10:06 [id number] NoteReason for Consultation Chest pain postoperatively History of Present Illness Mrs. Estrella is a very pleasant 70-year-old diabetic female with hypertension, unknown cholesterol, previously seen by medical records administrator Dr. Fish in September 2019 for what [...] testing apparently took place in a private medical records administrator office, so I am unsure whether we [...] test in September 2019 at a private medical records administrator 's office, reportedly LV dysfunction per thepatient, [...] she undergo a dobutami (more content not included)...[facility] HospitalComment on above:Result Comment: Electronically Signed By: Eleuterio VIGIL, John Olson\.rashmi\Date and Time Signed: 05/02/20 08:35 [id number] NoteBasic Information Accompanied by: Family member Source of History: Self Present at Bedside: Family member Referral Source: Recovery room History Limitation: None Chief Complaint chest pain History of Present Illness Pt is a 70 F PMH HTN, HLD admitted from PACU. pt had a repair of a left medial meniscus tear with Dr. Talamantes of ortho. Pt was in PACU recovering, had a [...] 84 mg/dL (05/01/20 16:07:00) POC Device SN: [id number] (05/01/20 16:07:00) POC Username: ALEXIA HALL (05/01/20 16:07:00) Diagnostic Results EKG NSR [address]-T wave changes Images No qualifying data available. Assessment/Plan 1. Other chest pain (R07.89: Other chest pain) - possible ACS, risk factors include DM, HTN, obesity - telemetry, troponin - ASA, fasting lipid profile - consult [facility] cardiology 2. Hypertension (I10: Essential (primary) hypertension) [...] acetaminophen 325 mg Tab (more content not included)...[facility] HospitalComment on above:Result Comment: Electronically Signed By: JUN VIGIL, Nhung\.br\Date and Time Signed: 05/01/20 18:30 [id number] Note [id number]:127[facility]No [facility]No[facility] [employer] Other Hisahrr general Narrative - Reported* Type Description Date [...] eye surgery 04/2021 Hospitalization History see above [employer] Other Hisxwwg general Narrative - Reported* Type Description Date [...] RIGHT EYE 2021 Hospitalization History see above [employer] Other History general Narrative - Reported* Type Description Date [...] HEART CATH 12/2021 Hospitalization History see above [employer] Other Summary Purpose Family History No Family History Records FoundNo Family History Records FoundNo Family History Records FoundNo Family History Records FoundNo Family History Records Found Advance Directives No Advanced Directives Records FoundNo Advanced Directives Records FoundNo Advanced Directives Records FoundNo Advanced Directives Records FoundNo Advanced Directives Records Found Additional Source Comments INFORMATION SOURCE (unrecogn ized section and content) DATE CREATED AUTHOR [facility]07/20[facility] DATE CREATED AUTHOR AUTHOR'S ORGANIZ ATION 08/05/2021 [facility] DATE CREATED AUTHOR AUTHOR'S ORGANIZ ATION 12/16/2021 [facility] DATE CREATED AUTHOR AUTHOR'S ORGANIZ ATION 10/29/2022 [facility] DATE CREATED AUTHOR AUTHOR'S ORGANIZ ATION 08/10/2023 [facility] REASON FOR VISIT (unrecogniz ed section [...] BE BASED ON THE PRIMARY CLINICAL RECORDS. [employer] [facility]. provides no warranty or guarantee of the accuracy or completeness of information in this document.
--- NOTE | 2023-08-10 18:00 | ECG_ITS ---
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
[2023-08-10 18:07] LABS: Basophils Absolute Auto 0.1 10^3/uL (0.0-0.1); Basophils Percent Auto 0.8 % (0.2-2.0); Eosinophils Absolute Auto 0.3 10^3/uL (0.0-0.7); Eosinophils Percent Auto 2.7 % (0.9-7.0); Hematocrit 35.7 % (36.0-48.0); Hemoglobin 11.8 g/dL (12.0-16.0); Immature Granulocytes Abs Auto 0.05 10^3/uL (0.00-0.03); Immature Granulocytes Pct Auto 0.5 % (0.0-0.5); Mean Corpuscular HGB Conc 33.1 g/dL (29.9-35.2); Mean Corpuscular Volume 87.7 fL (81.0-99.0); Mean Platelet Volume 10.8 fL (9.5-13.5); Monocytes Absolute Auto 0.6 10^3/uL (0.3-0.8); Monocytes Percent Auto 6.7 % (1.7-12.0); Neutrophils Absolute Auto 6.4 10^3/uL (1.4-6.5); Neutrophils Percent Auto 68.3 % (43.0-75.0); Platelet Count 221 10^3/uL (150-450); Red Blood Count 4.07 10^6/uL (4.20-5.40); Red Cell Distribution Width 13.7 % (11.0-15.0); White Blood Count 9.3 10^3/uL (4.0-11.0)
[2023-08-10] MEDS: FUROSEMIDE 40 MG/4 ML VIAL IVP (18:11)
--- NOTE | 2023-08-10 18:11 | ED_ITS ---
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 The patient told me that she was suffering from orthostatic hypotension and last week her Bumex was cut from 3mg BID to 1.5mg in AM and 1mg in PM. She then had ECHO at [facility] on 08/09/23. Dr Fish read the ECHO and noted severely elevated right-sided pressures. RVSP is 64 mmHg. Doppler data suggest increased left-sided filling pressures. He called the patient and directed her to come to [facility] to be admitted. She called her tentmaker and he agreed. The patient told me that Dr Fish wanted me to call him when the patient arrived. The patient complains of exertional dyspnea. No chest pain or shortness of breath. No fever, chills, cough, GI or symptoms. Related Data Home Medications Medication Instructions Recorded Confirmed allopurinol 100 mg tablet 100 mg PO Q24H 08/10/23 08/10/23 amlodipine 10 mg tablet 10 mg PO DAILY 08/10/23 08/10/23 bumetanide 2 mg tablet 2 mg PO Q8H 08/10/23 08/10/23 doxazosin 4 mg tablet 4 mg PO Q8H 08/10/23 08/10/23 hydralazine 50 mg tablet 50 mg PO Q24H 08/10/23 08/10/23 isosorbide mononitrate 30 mg 30 mg PO Q24H 08/10/23 08/10/23 tablet,extended release 24 hr levothyroxine 50 mcg tablet 50 mcg PO Q24H 08/10/23 08/10/23 metoprolol tartrate 50 mg tablet 75 mg PO Q12H 08/10/23 08/10/23 midodrine 5 mg tablet 5 mg PO Q8H 08/10/23 08/10/23 Allergies Allergy/AdvReac Type Severity Reaction Status Date / Time azithromycin Allergy Unknown Verified 08/10/23 17:40 hydromorphone [From Dilaudid] Allergy Unknown Verified 08/10/23 17:40 Penicillins Allergy Unknown Verified 08/10/23 17:40 spironolactone Allergy Unknown Verified 08/10/23 17:40 Exam Narrative Exam Narrative: Nurses notes and vital signs reviewed and patient is not hypoxic. afebrile General: Well-appearing and in no apparent distress. Skin: Warm, dry, no pallor noted. Eye: Pupils are equal, round and EOMI. No scleral icterus. Cardiovascular: Regular Rate and Rhythm without murmur, gallop or rub. Respiratory: No accessory muscle use or respiratory distress. Lungs are clear to auscultation, no wheezing, rales or rhonchi Musculoskeletal: normal ROM, no calf or popliteal tenderness, no lower extremity edema/swelling GI: Abdomen is soft, non-distended. Normal bowel sounds. No tenderness to palpation. No rebound, guarding, or rigidity noted. Neurological: A&O x4. No cranial nerve dysfunction observed. No truncal ataxia. Moves all extremities. Sensation intact. Psychiatric: Cooperative and interactive. Normal mood and affect. Constitutional Vital Signs, click to edit/add: Last Vital Signs Temp 98.7 F 08/10/23 17:41 Pulse 75 08/10/23 17:41 Resp 18 08/10/23 17:41 BP 156/51 H 08/10/23 17:41 Pulse Ox 96 08/10/23 17:41 O2 Del Method Room Air 08/10/23 17:41 Course Vital Signs Vital signs: Vital Signs Temperature 98.7 F 08/10/23 17:41 Pulse Rate 75 08/10/23 17:41 Respiratory Rate 18 08/10/23 17:41 Blood Pressure 156/51 H 08/10/23 17:41 Pulse Oximetry 96 08/10/23 17:41 Oxygen Delivery Method Room Air 08/10/23 17:41 Temperature 98.7 F 08/10/23 17:41 Pulse Rate 75 08/10/23 17:41 Respiratory Rate 18 08/10/23 17:41 Blood Pressure 156/51 H 08/10/23 17:41 Pulse Oximetry 96 08/10/23 17:41 Oxygen Delivery Method Room Air 08/10/23 17:41 Medical Decision Making MDM Narrative Medical decision making narrative: Patient was placed on ekg monitor tech and EKG obtained. Blood drawn and sent for evaluation. Portable chest x-ray obtained. She was ordered to receive 40 mg of Lasix IV. I called and spoke with Dr. Fish. He asked that the patient be admitted to stepdown unit, observation basis at the [facility] and the patient will be evaluated by cardiology tomorrow. CBC normal. BMp notable for elevated BUN and Cr that is at or below her baseline. Troponin negative. BNP elevated at 1939. case discussed with the classification inspector telehospitalist and Kassandra Sotomayor agreed to SDU on behalf of Dr Lockett with Dr Fish available for consultation. Medical Records Medical records reviewed: Yes I reviewed the patient's medical records Medical records narrative: I reviewed the patient's echocardiogram report from 08/09/23. Lab Data Lab results reviewed: Yes I reviewed the patient's lab results Labs: Lab Results 08/10/23 Range/Units 17:49 WBC 9.3 (4.0-11.0) 10^3/uL RBC 4.07 L (4.20-5.40) 10^6/uL Hgb 11.8 L (12.0-16.0) g/dL Hct 35.7 L (36.0-48.0) % MCV 87.7 (81.0-99.0) fL MCH 29.0 (26.7-34.0) pg MCHC 33.1 (29.9-35.2) g/dL RDW 13.7 (11.0-15.0) % Plt Count 221 (150-450) 10^3/uL MPV 10.8 (9.5-13.5) fL Neut % (Auto) 68.3 (43.0-75.0) % Lymph % (Auto) 21.0 (20.5-60.0) % [place] % (Auto) 6.7 (1.7-12.0) % Eos % (Auto) 2.7 (0.9-7.0) % Baso % (Auto) 0.8 (0.2-2.0) % Neut # (Auto) 6.4 (1.4-6.5) 10^3/uL Lymph # (Auto) 2.0 (1.2-3.8) 10^3/uL [place] # (Auto) 0.6 (0.3-0.8) 10^3/uL Eos # (Auto) 0.3 (0.0-0.7) 10^3/uL Baso # (Auto) 0.1 (0.0-0.1) 10^3/uL Abs Immat Gran (auto) 0.05 H (0.00-0.03) 10^3/uL Imm/Tot Granulo (auto) 0.5 (0.0-0.5) % Sodium 140 (136-145) mmol/L Potassium 3.9 (3.5-5.1) mmol/L Chloride 102 (98-107) mmol/L Carbon Dioxide 27.5 (21.0-32.0) mmol/L Anion Gap 14.4 BUN 37.0 H (7.0-18.0) mg/dL Creatinine 2.16 H (0.55-1.02) mg/dL Est GFR ( Amer) 27 L (>=60) Est GFR (Non-Af Amer) 22 L (>=60) BUN/Creatinine Ratio 17.1 Glucose 209 H (74-106) mg/dL Calcium 9.2 (8.5-10.1) mg/dL Total Bilirubin 0.4 (0.2-1.0) mg/dL AST 20 (15-37) U/L ALT 26 (14-59) U/L Alkaline Phosphatase 104 (46-116) U/L Troponin I High Sens 11.8 (4.0-51.3) pg/mL NT-Pro-B Natriuret Pep 1939.0 H* (<=900.0) pg/mL Total Protein 7.8 (6.4-8.2) g/dL Albumin 3.1 L (3.4-5.0) g/dL Globulin 4.7 g/dL Albumin/Globulin Ratio 0.7 ECG Data Attestation: I personally reviewed and interpreted this ECG as follows: Interpretation: EKG interpretation: Emergency Department physician interpretation. Normal sinus rhythm at 72bpm. Normal axis, normal intervals and no ST segment elevation or depression. Normal EKG. Discharge Plan Discharge Chief Complaint: Shortness of Breath/Dyspnea Clinical Impression: Diastolic congestive heart failure Patient Disposition: Admitted as Observation Time of Disposition Decision: 18:22
--- NOTE | 2023-08-10 18:25 | XR_ITS ---
The [address] [address] Patient Name: MADY ESTRELLA MRN: [id number] date: 1950 Sex: F Assigned Patient Location: ED.MAIN Current Patient Location: ER Accession/Order Number: [id number] Exam Date: 08/10/2023 18:20 Report Date: 08/10/2023 18:39 At the request of: EMILY ACOSTA Procedure: XR chest 1V EXAM: XR chest 1V at 1817 hours HISTORY: CHF COMPARISON: 05/11/2022 TECHNIQUE: AP upright portable chest x-ray FINDINGS: The heart is not enlarged and there has been interval improvement of the previously identified vascular congestion and prominence of interstitial markings. A small amount of linear atelectasis or scarring is seen in the left mid to lower lung. No acute infiltrate, effusion or pneumothorax is identified. Multiple sternal wire sutures and mediastinal clips are present. The osseous structures are grossly intact. XR/XR chest 1V IMPRESSION: Interval improvement of the patient's vascular congestion and interstitial edema. There is no evidence of a focal infiltrate or overt cardiac decompensation at this time. Linear atelectasis or scarring is seen in the left mid to lower lung. Electronically authenticated by: BETSY LAZARO Date: 08/10/2023 18:39
[2023-08-10 18:34] LABS: Alanine Aminotransferase 26 U/L (14-59); Albumin Globulin Ratio 0.7; Albumin Level 3.1 g/dL (3.4-5.0); Alkaline Phosphatase 104 U/L (46-116); Anion Gap 14.4; Aspartate Amino Transferase 20 U/L (15-37); BUN Creatinine Ratio 17.1; Bilirubin Total 0.4 mg/dL (0.2-1.0); Calcium 9.2 mg/dL (8.5-10.1); Carbon Dioxide 27.5 mmol/L (21.0-32.0); Chloride 102 mmol/L (98-107); Estimated GFR (African America 27 (>=60); Estimated GFR (Non-African Ame 22 (>=60); Globulin 4.7 g/dL; Glucose 209 mg/dL (74-106); Potassium 3.9 mmol/L (3.5-5.1); Sodium 140 mmol/L (136-145); Total Protein 7.8 g/dL (6.4-8.2); Troponin I High Sensitivity 11.8 pg/mL (4.0-51.3)
--- OUTSIDE RECORDS SUMMARY | 2023-08-10 20:30 | XMS_ITS | CCD ---
Author Name Unknown Address [address] [place] [address] Organization [facility] Care Team Providers Care Client Application Support Specialist Name Role Phone JOHN PERDOMO Referring Unavailable [...] Erythromycin; Translations: [ERYTHROMYCIN] Drug Allergy 1 [facility] Repository (2 sources) HYDROmorphone Drug Allergy 1 [facility] Repository (2 sources) Penicillins; Translations: [PENICILLINS] Drug allergy (disorder) 1 [facility] Repository (20 sources) Erythromycin Drug Allergy anaphylaxis Riboxx Other (20 sources) HYDROmorphone; Translations: [HYDROMORPHONE] Drug Allergy 2 [facility] (20 sources) Penicillin Drug Allergy Unknown Riboxx Other (20 sources) Penicillin G Benzathine Drug allergy hives [facility] [email or web address] Other (2 sources) Erythromycin; Translations: [ERYTHROMYCIN BASE] Drug Allergy 0 [facility] Repository (1 source) Penicillin Drug Allergy [facility] Repository (2 sources) Spironolactone Drug Allergy rash Riboxx Other Medications Current Medications Medication Drug Class(es) [...] every week Vitamin D (Ergocalciferol) 1.25 MG (57819 UT) TAKE 1 CAPSULE BY MOUTH ONE TIME PER WEEK for 84 Active take 1 capsule by mo uth every other week Ergocalciferol 1.25 MG (31474 UT) 1 caps ule Orally Q2 week [...] disease (5 sources) Atherosclerotic heart disease of [place] coronary artery without angina pectoris; Translations: [Atherosclerotic heart disease of [place] coronary artery with other forms of angina [...] volume overload. She needs to contact her service administrator for intensification of her diuretic therapy based on the results of the echocardiogram. If she is not responding to pills then we might need to admit her for intravenous diuretic therapy. [facility] Telephoneon 08-09-2023 Telephone [id number] Claudia Estrella 1950 F Date Provider Department Center 08/09/2023 KARTHIK MACKAY Family History Problem Relation Age of Onset Heart attack Mother Heart failure Mother Heart attack Father Family Status - Relation Status Age at Mother Father [facility] Office Visiton 08-04-2023 Follow-up visit [id number] Claudia Estrella 1950 F Date Provider Department Center 08/04/2023 [id number], KARTHIK BH CARD [facility] Family History Problem Relation Age of Onset Heart attack Mother Heart failure Mother Heart attack Father Family Status - Relation Status Age at Mother Father Level of Service:35019 ME OFFICE/OUTPATIENT ESTABLISHED MOD MDM 30 MIN [facility] Office Visiton 02-24-2023 Follow-up visit [id number] Claudia Estrella 1950 F Date Provider Department Center 02/24/2023 CARMINA REAVES CARD [facility] Family History Problem Relation Age of Onset Heart attack Mother Heart failure Mother Heart attack Father Family Status - Relation Status Age at Mother Father Level of Service:79759 ME OFFICE/OUTPATIENT ESTABLISHED LOW MDM 20-29 MIN [facility] Orders Onlyon 12-09-2022 Orders Only [id number] Sameer,Claudia Conklin 1950 F Provider Department Center 12/09/2022 FRANCIS MUÑOZ ADY [facility] Family History Problem Relation Age of Onset Heart attack Mother Heart failure Mother Heart attack Father Family Status - Relation Status Age at Mother Father [facility] 36on 10-26-2022 36 [facility] lab called to report a critical BNP of 1458. [facility] BNPon 10-26-2022 Natriuretic peptide B (Bld) [Mass/Vol] 1458.0 pg/mL Critically high <=900.0 [facility] Comment on above: Performed By: #### L IPID, TSH, FT3 #### [facility] [address] [place] [address] Dr. Andrey Hargrove CBC AUTO DIFFon 10-26-2022 BASO # 0.1 103/ul Normal 0.0-0.1 [facility] Comment on above: Performed By: #### V ITAD, FETIBC, FERR #### [facility] [address] [address] [address] Andrey Hargrove Basophils/100 WBC (Bld) 0.7 % Normal 0.2-2.0 [facility] Comment on above: Performed By: #### V ITAD, FETIBC, FERR #### [facility] [address] [address] [address] Andrey Hargrove EO # 0.4 103/ul Normal 0.0-0.7 [facility] Comment on above: Performed By: #### V ITAD, FETIBC, FERR #### [facility] [address] [place] [address] Dr. Andrey Hargrove Eosinophils/100 WBC (Bld) 4.6 % Normal 0.9-7.0 [facility] Comment on above: Performed By: #### V ITAD, FETIBC, FERR #### [facility] [address] [place] [address] Dr. Andrey Hargrove Erythrocyte distribution width (RBC) [Ratio] 13.7 % Normal 11.0-15.0 [facility] Comment on above: Performed By: #### V ITAD, FETIBC, FERR #### [facility] [address] [place] [address] Dr. Andrey Hargrove Hematocrit (Bld) [Volume fraction] 35.5 % Critically low 36.0-48.0 [facility] Comment on above: Performed By: #### V ITAD, FETIBC, FERR #### [facility] [address] [place] [address] Dr. Andrey Hargrove Hemoglobin (Bld) [Mass/Vol] 12.0 g/dL Normal 12.0-16.0 [facility] Comment on above: Performed By: #### V ITAD, FETIBC, FERR #### [facility] [address] [place] [address] Dr. Andrey Hargrove IG # 0.02 10e3/ul Normal 0.00-0.03 [facility] Comment on above: Performed By: #### V ITAD, FETIBC, FERR #### [facility] [address] [place] [address] Dr. Andrey Hargrove IG % 0.2 % Normal 0.0-0.5 [facility] Comment on above: Performed By: #### V ITAD, FETIBC, FERR #### [facility] [address] [place] [address] Dr. Andrey Hargrove LYMPH # 1.5 103/ul Normal 1.2-3.8 [facility] Comment on above: Performed By: #### V ITAD, FETIBC, FERR #### [facility] [address] [place] [address] Dr. Andrey Hargrove Lymphocytes/100 WBC (Bld) 18.1 % Critically low 20.5-60.0 [facility] Comment on above: Performed By: #### V ITAD, FETIBC, FERR #### [facility] [address] [place] [address] Dr. Andrey Hargrove MANUAL DIFF REQ NO Normal [facility] Comment on above: Performed By: #### V ITAD, FETIBC, FERR #### [facility] [address] [place] [address] Dr. Andrey Hargrove MCH (RBC) [Entitic mass] 29.3 pg Normal 26.7-34.0 [facility] Comment on above: Performed By: #### V ITAD, FETIBC, FERR #### [facility] [address] [place] [address] Dr. Andrey Hargrove MCHC (RBC) [Mass/Vol] 33.8 g/dL Normal 29.9-35.2 [facility] Comment on above: Performed By: #### V ITAD, FETIBC, FERR #### [facility] [address] [place] [address] Dr. Andrey Hargrove MCV (RBC) [Entitic vol] 86.8 fL Normal 81.0-99.0 [facility] Comment on above: Performed By: #### V ITAD, FETIBC, FERR #### [facility] [address] [place] [address] Dr. Andrey Hargrove MONO # 0.7 103/ul Normal 0.3-0.8 [facility] Comment on above: Performed By: #### V ITAD, FETIBC, FERR #### [facility] [address] [place] [address] Dr. Andrey Hargrove Monocytes/100 WBC (Bld) 7.9 % Normal 1.7-12.0 [facility] Comment on above: Performed By: #### V ITAD, FETIBC, FERR #### [facility] [address] [place] [address] Dr. Andrey Hargrove NEUT # 5.7 103/ul Normal 1.4-6.5 [facility] Comment on above: Performed By: #### V ITAD, FETIBC, FERR #### [facility] [address] [place] [address] Dr. Andrey Hargrove Neutrophils/100 WBC (Bld) 68.5 % Normal 43.0-75.0 [facility] Comment on above: Performed By: #### V ITAD, FETIBC, FERR #### [facility] [address] [place] [address] Dr. Andrey Hargrove Platelet mean volume (Bld) [Entitic vol] 10.4 fL Normal 9.5-13.5 [facility] Comment on above: Performed By: #### V ITAD, FETIBC, FERR #### [facility] [address] [place] [address] Dr. Andrey Hargrove PLT 204 103/ul Normal 150-450 [facility] Comment on above: Performed By: #### V ITAD, FETIBC, FERR #### [facility] [address] [place] [address] Dr. Andrey Hargrove RBC 4.09 106/ul Critically low 4.20-5.40 [facility] Comment on above: Performed By: #### V ITAD, FETIBC, FERR #### [facility] [address] [place] [address] Dr. Andrey Hargrove WBC 8.3 103/ul Normal 4.0-11.0 [facility] Comment on above: Performed By: #### V ITAD, FETIBC, FERR #### [facility] [address] [place] [address] Dr. Andrey Hargrove PROF CHEM 8 (BAS METB)on Anion gap [Moles/Vol] 11.1 mmol/L Normal [facility] Comment on above: Performed By: #### L IPID, TSH, FT3 #### [facility] [address] [place] [address] Dr. Andrey Hargrove Calcium [Mass/Vol] 9.2 mg/dL Normal 8.5-10.1 [facility] Comment on above: Performed By: #### L IPID, TSH, FT3 #### [facility] [address] [address] [address] Andrey Hargrove Chloride [Moles/Vol] 102 mmol/L Normal 98-107 [facility] Comment on above: Performed By: #### L IPID, TSH, FT3 #### [facility] [address] [address] [address] Andrey Hargrove CO2 [Moles/Vol] 31.2 mmol/L Normal 21.0-32.0 [facility] Comment on above: Performed By: #### L IPID, TSH, FT3 #### [facility] [address] [address] [address] Andrey Hargroev Creatinine [Mass/Vol] 1.79 mg/dL Critically high 0.55-1.02 [facility] Comment on above: Performed By: #### L IPID, TSH, FT3 #### [facility] [address] [address] [address] Andrey Hargrove EGFR-AF MALTESE 34 mL/min/1.73m2 Critically low >=60 [facility] Comment on above: Performed By: #### L IPID, TSH, FT3 #### [facility] [address] [address] [address] Andrey Hargrove EGFR-NON AF MALTESE 28 mL/min/1.73m2 Critically low >=60 [facility] Comment on above: Performed By: #### L IPID, TSH, FT3 #### [facility] [address] [address] [address] Andrey Hargrove Glucose [Mass/Vol] 148 mg/dL Critically high 74-106 [facility] Comment on above: Performed By: #### L IPID, TSH, FT3 #### [facility] [address] [address] [address] Andrey Hargrove Potassium [Moles/Vol] 3.3 mmol/L Critically low 3.5-5.1 [facility] Comment on above: Performed By: #### L IPID, TSH, FT3 #### [facility] [address] [address] [address] Andrey Hargrove Sodium [Moles/Vol] 141 mmol/L Normal 136-145 [facility] Comment on above: Performed By: #### L IPID, TSH, FT3 #### [facility] [address] [address] [address] Andrey Hargrove Urea nitrogen [Mass/Vol] 41.0 mg/dL Critically high 7.0-18.0 [facility] Comment on above: Performed By: #### L IPID, TSH, FT3 #### [facility] [address] [place] [address] Dr. Andrey Hargrove Urea nitrogen/Creatinine [Mass ratio] 22.9 mg/mg Normal [facility] Comment on above: Performed By: #### L IPID, TSH, FT3 #### [facility] [address] [place] [address] Dr. Andrey Hargrove Office Visiton 09-12-2022 Follow-up visit [id number] Claudia Estrella 1950 F Date Provider Department Center 09/12/2022 KARTHIK MACKAY [facility] Family History Problem Relation Age of Onset Heart attack Mother Heart failure Mother Heart attack Father Family Status - Relation Status Age at Mother Father Level of Service:93191 ME OFFICE/OUTPATIENT ESTABLISHED MOD MDM 30-39 MIN Reason for Visit and Comments: Coronary Artery Disease [187] Hypertension [037590] Congestive Heart Failure [127] [facility] PTH INTACTon 08-24-2022 PTH, Intact 44 pg/mL Normal 15-65 [facility] Comment on above: Performed By: #### V DANIA VASQUES, FERR #### [facility] [address] [place] [address] Dr. Andrey Hargrove US THYROIDon 08-24-2022 US [...] RENETTA RENEE Date: 2022-08-24 16:16 Normal [facility] FERRITINon 08-23-2022 Ferritin [Mass/Vol] 114.0 ng/mL Normal 8.0-252.0 [facility] Comment on above: Performed By: #### V ITAD, FETIBC, FERR #### [facility] [address] [place] [address] Dr. Andrey Hargrove HEMOGRAM AND PLATELon 2022 Hematocrit (Bld) [Volume fraction] 34.9 % Critically low 36.0-48.0 [facility] Comment on above: Performed By: #### V ITAD, FETIBC, FERR #### [facility] [address] [address] [address] Andrey Hargrove Hemoglobin (Bld) [Mass/Vol] 11.8 g/dL Critically low 12.0-16.0 [facility] Comment on above: Performed By: #### V ITAD, FETIBC, FERR #### [facility] [address] [address] [address] Andrey Hargrove MCH (RBC) [Entitic mass] 28.6 pg Normal 26.7-34.0 [facility] Comment on above: Performed By: #### V ITAD, FETIBC, FERR #### [facility] [address] [place] [address] Dr. Andrey Hargrove MCHC (RBC) [Mass/Vol] 33.8 g/dL Normal 29.9-35.2 [facility] Comment on above: Performed By: #### V ITAD, FETIBC, FERR #### [facility] [address] [place] [address] Dr. Andrey Hargroev MCV (RBC) [Entitic vol] 84.7 fL Normal 81.0-99.0 [facility] Comment on above: Performed By: #### V ITAD, FETIBC, FERR #### [facility] [address] [place] [address] Dr. Andrey Hargrove PLT 215 103/ul Normal 150-450 [facility] Comment on above: Performed By: #### V ITAD, FETIBC, FERR #### [facility] [address] [place] [address] Dr. Andrey Hargrove RBC 4.12 106/ul Critically low 4.20-5.40 [facility] Comment on above: Performed By: #### V ITAD, FETIBC, FERR #### [facility] [address] [place] [address] Dr. Andrey Hargrove WBC 9.2 103/ul Normal 4.0-11.0 [facility] Comment on above: Performed By: #### V ITAD, FETIBC, FERR #### [facility] [address] [place] [address] Dr. Andrey Hargrove IRON AND TIBCon 08-23-2022 % SATURATION 15.4 % Normal [facility] Comment on above: Performed By: #### V ITAD, FETIBC, FERR #### [facility] [address] [place] [address] Dr. Andrey Hargrove Iron [Mass/Vol] 44.0 ug/dL Critically low 50.0-170.0 [facility] Comment on above: Performed By: #### V ITAD, FETIBC, FERR #### [facility] [address] [place] [address] Dr. Andrey Hargrove TIBC DIRECT 286.0 ug/dL Normal 250.0-450.0 [facility] Comment on above: Performed By: #### V ITAD, FETIBC, FERR #### [facility] [address] [place] [address] Dr. Andrey Hargrove MAGNESIUMon 08-23-2022 Magnesium [Mass/Vol] 2.1 mg/dL Normal 1.8-2.4 [facility] Comment on above: Performed By: #### L IPID, TSH, FT3 #### [facility] [address] [place] [address] Dr. Andrey Hargrove RENAL FUNCTION PANELon 08-23 Albumin [Mass/Vol] 3.3 g/dL Critically low 3.4-5.0 [facility] Comment on above: Performed By: #### L IPID, TSH, FT3 #### [facility] [address] [place] [address] Dr. Andrey Hargrove Calcium [Mass/Vol] 9.4 mg/dL Normal 8.5-10.1 [facility] Comment on above: Performed By: #### L IPID, TSH, FT3 #### [facility] [address] [place] [address] Dr. Andrey Hargrove Chloride [Moles/Vol] 103 mmol/L Normal 98-107 [facility] Comment on above: Performed By: #### L IPID, TSH, FT3 #### [facility] [address] [place] [address] Dr. Andrey Hargrove CO2 [Moles/Vol] 26.8 mmol/L Normal 21.0-32.0 [facility] Comment on above: Performed By: #### L IPID, TSH, FT3 #### [facility] [address] [place] [address] Dr. Andrey Hargrove Creatinine [Mass/Vol] 1.94 mg/dL Critically high 0.55-1.02 [facility] Comment on above: Performed By: #### L IPID, TSH, FT3 #### [facility] [address] [place] [address] Dr. Andrey Hargrove EGFR-AF MALTESE 31 mL/min/1.73m2 Critically low >=60 [facility] Comment on above: Performed By: #### L IPID, TSH, FT3 #### [facility] [address] [place] [address] Dr. Andrey Hargrove EGFR-NON AF MALTESE 25 mL/min/1.73m2 Critically low >=60 [facility] Comment on above: Performed By: #### L IPID, TSH, FT3 #### [facility] [address] [place] [address] Dr. Andrey Hargrove Glucose [Mass/Vol] 166 mg/dL Critically high 74-106 [facility] Comment on above: Performed By: #### L IPID, TSH, FT3 #### [facility] [address] [place] [address] Dr. Andrey Hargrove Phosphate [Mass/Vol] 4.6 mg/dL Normal 2.6-4.7 [facility] Comment on above: Performed By: #### L IPID, TSH, FT3 #### [facility] [address] [place] [address] Dr. Andrey Hargrove Potassium [Moles/Vol] 4.3 mmol/L Normal 3.5-5.1 [facility] Comment on above: Performed By: #### L IPID, TSH, FT3 #### [facility] [address] [place] [address] Dr. Andrey Hargrove Sodium [Moles/Vol] 137 mmol/L Normal 136-145 [facility] Comment on above: Performed By: #### L IPID, TSH, FT3 #### [facility] [address] [place] [address] Dr. Andrey Hargrove Urea nitrogen [Mass/Vol] 39.0 mg/dL Critically high 7.0-18.0 [facility] Comment on above: Performed By: #### L IPID, TSH, FT3 #### [facility] [address] [place] [address] Dr. Andrey Hargrove UA RANDOM W/MICROSCOPICon BACTERIA NONE SEEN Normal NONE SEEN [facility] Comment on above: Performed By: #### V ITAD, FETIBC, FERR #### [facility] [address] [place] [address] Dr. Andrey Hargrove Bilirubin Ql (U) Negative Normal NEGATIVE [facility] Comment on above: Performed By: #### V ITAD, FETIBC, FERR #### [facility] [address] [place] [address] Dr. Andrey Hargrove CAST NONE SEEN Normal NONE SEEN [facility] Comment on above: Performed By: #### V ITAD, FETIBC, FERR #### [facility] [address] [place] [address] Dr. Andrey Hargrove Clarity (U) CLEAR Normal CLEAR [facility] Comment on above: Performed By: #### V ITAD, FETIBC, FERR #### [facility] [address] [place] [address] Dr. Andrey Hargrove Color (U) LT. YELLOW Normal YELLOW [facility] Comment on above: Performed By: #### V ITAD, FETIBC, FERR #### [facility] [address] [place] [address] Dr. Andrey Hargrove Crystals LM Nom (Urine sed) NONE SEEN Normal NONE SEEN [facility] Comment on above: Performed By: #### V ITAD, FETIBC, FERR #### [facility] [address] [place] [address] Dr. Andrey Hargrove Epithelial cells LM Ql (Urine sed) RARE Normal NONE SEEN /RARE [facility] Comment on above: Performed By: #### V ITAD, FETIBC, FERR #### [facility] [address] [place] [address] Dr. Andrey Hargrove Glucose Ql (U) Negative Normal NEGATIVE [facility] Comment on above: Performed By: #### V ITAD, FETIBC, FERR #### [facility] [address] [place] [address] Dr. Andrey Hargrove Hemoglobin Ql (U) Negative Normal NEGATIVE [facility] Comment on above: Performed By: #### V ITAD, FETIBC, FERR #### [facility] [address] [address] [address] Andrey Hargrove Ketones Ql (U) Negative Normal NEGATIVE [facility] Comment on above: Performed By: #### V ITAD, FETIBC, FERR #### [facility] [address] [place] [address] Dr. Andrey Hargrove LEUKOCYTES Negative Normal NEGATIVE [facility] Comment on above: Performed By: #### V ITAD, FETIBC, FERR #### [facility] [address] [place] [address] Dr. Andrey Hargrove MUCOUS NONE SEEN Normal NONE SEEN [facility] Comment on above: Performed By: #### V ITAD, FETIBC, FERR #### [facility] [address] [place] [address] Dr. Andrey Hargrove Nitrite Ql (U) Negative Normal NEGATIVE [facility] Comment on above: Performed By: #### V ITAD, FETIBC, FERR #### [facility] [address] [place] [address] Dr. Andrey Hargrove pH (U) 6.5 [pH] Normal 5-9 [facility] Comment on above: Performed By: #### V ITAD, FETIBC, FERR #### [facility] [address] [place] [address] Dr. Andrey Hargrove RBC NONE SEEN Abnormal 0-2 [facility] Comment on above: Performed By: #### V ITAD, FETIBC, FERR #### [facility] [address] [place] [address] Dr. Andrey Hargrove SPEC GRAVITY 1.010 Normal 1.005-<=1.02 5 [facility] Comment on above: Performed By: #### V ITAD, FETIBC, FERR #### [facility] [address] [place] [address] Dr. Andrey Hargrove UA PROTEIN 30 mg/dl Abnormal NEGATIVE/ TRACE [facility] Comment on above: Performed By: #### V ITAD, FETIBC, FERR #### [facility] [address] [place] [address] Dr. Andrey Hargrove Urobilinogen Qn (U) 0.2 {Kelly'U}/dL Normal 0.2 - 1. 0 [facility] Comment on above: Performed By: #### V ITAD, FETIBC, FERR #### [facility] [address] [place] [address] Dr. Andrey Hargrove WBC NONE SEEN Normal NONE SEEN [facility] Comment on above: Performed By: #### V ITAD, FETIBC, FERR #### [facility] [address] [place] [address] Dr. Andrey Hargrove URIC ACID SERUMon 08-23-2022 Urate [Mass/Vol] 5.8 mg/dL Normal 2.6-6.0 [facility] Comment on above: Performed By: #### L IPID, TSH, FT3 #### [facility] [address] [place] [address] Dr. Andrey Hargrove VITAMIN D 25 OHon 08-23-2022 VIT D 25-OH 69.0 ng/mL Normal [facility] Comment on above: Performed By: #### V ITAD, FETIBC, FERR #### [facility] [address] [place] [address] Dr. Andrey Hargrove VIT D RANGES SEE BELOW Normal [facility] Comment on above: Result Comment: <20 ng/mL Vit D deficient 20 - <30 ng/mL Vit D insufficient 30 - 100 ng/mL Vit D sufficient >100 ng/mL Potential Toxicity Performed By: #### V ITAD, FETIBC, FERR #### [facility] [address] [place] [address] Dr. Andrey Hargrove ECHOCARDIO M/2D COMPLETEon 1 08-14-2021 ECHOCARDIO M/2D COMPLETE Patient: CLAUDIA ESTRELLA Exam Date: 06/13/2022 : 1950 Gender:F Ordering : DR KARTHIK FISH M.D. Admission #: [id number] Family : Order #: [id number] CLICK HERE TO VIEW EXAM ECHOCARDIOGRAM REPORT [...] Fish M.D. on 06/14/2022 at 17:50 Normal [facility] BNPon 06-10-2022 Natriuretic peptide B (Bld) [Mass/Vol] 4197.0 pg/mL Critically high <=900.0 [facility] Comment on above: Performed By: #### L IPID, TSH, FT3 #### [facility] [address] [place] [address] Dr. Andrey Hargrove PROF CHEM 8 (BAS METB)on Anion gap [Moles/Vol] 10.4 mmol/L Normal [facility] Comment on above: Performed By: #### V ITAD, FETIBC, FERR #### [facility] [address] [address] [address] Andrey Hargrove Calcium [Mass/Vol] 9.4 mg/dL Normal 8.5-10.1 [facility] Comment on above: Performed By: #### V ITAD, FETIBC, FERR #### [facility] [address] [address] [address] Andrey Hargrove Chloride [Moles/Vol] 99 mmol/L Normal 98-107 [facility] [facility] Comment on above: Performed By: #### V ITAD, FETIBC, FERR #### [facility] [address] [address] [address] Andrey Hargrove CO2 [Moles/Vol] 33.8 mmol/L Critically high 21.0-32.0 [facility] Comment on above: Performed By: #### V ITAD, FETIBC, FERR #### [facility] [address] [place] [address] Dr. Andrey Hargrove Creatinine [Mass/Vol] 2.09 mg/dL Critically high 0.55-1.02 [facility] Comment on above: Performed By: #### V ITAD, FETIBC, FERR #### [facility] [address] [place] [address] Dr. Andrey Hargrove EGFR-AF MALTESE 28 mL/min/1.73m2 Critically low >=60 [facility] Comment on above: Performed By: #### V ITAD, FETIBC, FERR #### [facility] [address] [place] [address] Dr. Andrey Hargrove EGFR-NON AF MALTESE 23 mL/min/1.73m2 Critically low >=60 [facility] Comment on above: Performed By: #### V ITAD, FETIBC, FERR #### [facility] [address] [place] [address] Dr. Andrey Hargrove Glucose [Mass/Vol] 75 mg/dL Normal 74-106 [facility] Comment on above: Performed By: #### V ITAD, FETIBC, FERR #### [facility] [address] [place] [address] Dr. Andrey Hargrove Potassium [Moles/Vol] 3.2 mmol/L Critically low 3.5-5.1 [facility] Comment on above: Performed By: #### V ITAD, FETIBC, FERR #### [facility] [address] [address] [address] Andrey Hargrove Sodium [Moles/Vol] 140 mmol/L Normal 136-145 [facility] Comment on above: Performed By: #### V ITAD, FETIBC, FERR #### [facility] [address] [place] [address] Dr. Andrey Hargrove Urea nitrogen [Mass/Vol] 61.0 mg/dL Critically high 7.0-18.0 [facility] Comment on above: Performed By: #### V ITAD, FETIBC, FERR #### [facility] [address] [place] [address] Dr. Andrey Hargrove Urea nitrogen/Creatinine [Mass ratio] 29.2 mg/mg Normal [facility] Comment on above: Performed By: #### V ITAD, FETIBC, FERR #### [facility] [address] [place] [address] Dr. Andrey Hargrove BNPon 06-02-2022 Natriuretic peptide B (Bld) [Mass/Vol] 9365.0 pg/mL Critically high <=900.0 [facility] Comment on above: Performed By: #### V ITAD, FETIBC, FERR #### [facility] [address] [place] [address] Dr. Andrey Hargrove PROF CHEM 8 (BAS METB)on Anion gap [Moles/Vol] 10.7 mmol/L Normal [facility] Comment on above: Performed By: #### V ITAD, FETIBC, FERR #### [facility] [address] [place] [address] Dr. Andrey Hargrove Calcium [Mass/Vol] 9.1 mg/dL Normal 8.5-10.1 [facility] Comment on above: Performed By: #### V ITAD, FETIBC, FERR #### [facility] [address] [place] [address] Dr. Andrey Hargrove Chloride [Moles/Vol] 98 mmol/L Normal 98-107 [facility] Comment on above: Performed By: #### V ITAD, FETIBC, FERR #### [facility] [address] [place] [address] Dr. Andrey Hargrove CO2 [Moles/Vol] 29.4 mmol/L Normal 21.0-32.0 [facility] Comment on above: Performed By: #### V ITAD, FETIBC, FERR #### [facility] [address] [place] [address] Dr. Andrey Hargrove Creatinine [Mass/Vol] 2.44 mg/dL Critically high 0.55-1.02 [facility] Comment on above: Performed By: #### V ITAD, FETIBC, FERR #### [facility] [address] [place] [address] Dr. Andrey Hargrove EGFR-AF MALTESE 24 mL/min/1.73m2 Critically low >=60 [facility] Comment on above: Performed By: #### V ITAD, FETIBC, FERR #### [facility] [address] [place] [address] Dr. Andrey Hargrove EGFR-NON AF MALTESE 20 mL/min/1.73m2 Critically low >=60 [facility] Comment on above: Performed By: #### V ITAD, FETIBC, FERR #### [facility] [address] [place] [address] Dr. Andrey Hargrove Glucose [Mass/Vol] 135 mg/dL Critically high 74-106 [facility] Comment on above: Performed By: #### V ITAD, FETIBC, FERR #### [facility] [address] [place] [address] Dr. Andrey Hargrove Potassium [Moles/Vol] 4.1 mmol/L Normal 3.5-5.1 [facility] Comment on above: Performed By: #### V ITAD, FETIBC, FERR #### [facility] [address] [place] [address] Dr. Andrey Hargrove Sodium [Moles/Vol] 134 mmol/L Critically low 136-145 [facility] Comment on above: Performed By: #### V ITAD, FETIBC, FERR #### [facility] [address] [address] [address] Andrey Hargrove Urea nitrogen [Mass/Vol] 81.0 mg/dL Critically high 7.0-18.0 [facility] Comment on above: Performed By: #### V ITAD, FETIBC, FERR #### [facility] [address] [address] [address] Andrey Hargrove Urea nitrogen/Creatinine [Mass ratio] 33.2 mg/mg Normal [facility] Comment on above: Performed By: #### V ITAD, FETIBC, FERR #### [facility] [address] [address] [address] Andrey Hargrove XR ELBOW RT MIN [...] BETSY LAZARO Date: 2022-06-01 17:24 Normal [facility] RENAL FUNCTION PANELon 05-27 Albumin [Mass/Vol] 3.4 g/dL Normal 3.4-5.0 [facility] Comment on above: Performed By: #### L IPID, TSH, FT3 #### [facility] [address] [address] [address] Andrey Hargrove Calcium [Mass/Vol] 9.1 mg/dL Normal 8.5-10.1 [facility] Comment on above: Performed By: #### L IPID, TSH, FT3 #### [facility] [address] [address] [address] Andrey Hargrove Chloride [Moles/Vol] 99 mmol/L Normal 98-107 [facility] Comment on above: Performed By: #### L IPID, TSH, FT3 #### [facility] [address] [address] [address] Andrey Hargrove CO2 [Moles/Vol] 30.9 mmol/L Normal 21.0-32.0 [facility] Comment on above: Performed By: #### L IPID, TSH, FT3 #### [facility] [address] [address] [address] Andrey Hargrove Creatinine [Mass/Vol] 2.24 mg/dL Critically high 0.55-1.02 [facility] Comment on above: Performed By: #### L IPID, TSH, FT3 #### [facility] [address] [address] [address] Andrey Hargrove EGFR-AF MALTESE 26 mL/min/1.73m2 Critically low >=60 [facility] Comment on above: Performed By: #### L IPID, TSH, FT3 #### [facility] [address] [address] [address] Andrey Hargrove EGFR-NON AF MALTESE 22 mL/min/1.73m2 Critically low >=60 [facility] Comment on above: Performed By: #### L IPID, TSH, FT3 #### [facility] [address] [address] [address] Andrey Hargrove Glucose [Mass/Vol] 94 mg/dL Normal 74-106 [facility] Comment on above: Performed By: #### L IPID, TSH, FT3 #### [facility] [address] [address] [address] Andrey Hargrove Phosphate [Mass/Vol] 4.7 mg/dL Normal 2.6-4.7 [facility] Comment on above: Performed By: #### L IPID, TSH, FT3 #### [facility] [address] [address] [address] Andrey Hargrove Potassium [Moles/Vol] 3.5 mmol/L Normal 3.5-5.1 [facility] Comment on above: Performed By: #### L IPID, TSH, FT3 #### [facility] [address] [address] [address] Andrey Hargrove Sodium [Moles/Vol] 136 mmol/L Normal 136-145 [facility] Comment on above: Performed By: #### L IPID, TSH, FT3 #### [facility] [address] [place] [address] Dr. Andrey Hargrove Urea nitrogen [Mass/Vol] 72.0 mg/dL Critically high 7.0-18.0 [facility] Comment on above: Performed By: #### L IPID, TSH, FT3 #### [facility] [address] [place] [address] Dr. Andrey Hargrove PTH INTACTon 05-24-2022 PTH, Intact 24 pg/mL Normal 15-65 [facility] Comment on above: Performed By: #### L IPID, TSH, FT3 #### [facility] [address] [place] [address] Dr. Andrey Hargrove FERRITINon 05-23-2022 Ferritin [Mass/Vol] 190.0 ng/mL Normal 8.0-252.0 [facility] Comment on above: Performed By: #### L IPID, TSH, FT3 #### [facility] [address] [place] [address] Dr. Andrey Hargrove FREE T3on 05-23-2022 FREE T3 1.96 pg/mlL Critically low 2.18-3.98 [facility] Comment on above: Performed By: #### L IPID, TSH, FT3 #### [facility] [address] [place] [address] Dr. Andrey Hargrove FREE T4on 05-23-2022 Free T4 [Mass/Vol] 1.33 ng/dL Normal 0.76-1.46 [facility] Comment on above: Performed By: #### L IPID, TSH, FT3 #### [facility] [address] [place] [address] Dr. Andrey Hargrove HEMOGRAM AND PLATELon 2021 Hematocrit (Bld) [Volume fraction] 30.6 % Critically low 36.0-48.0 [facility] Comment on above: Performed By: #### V ITAD, FETIBC, FERR #### [facility] [address] [place] [address] Dr. Andrey Hargrove Hemoglobin (Bld) [Mass/Vol] 10.4 g/dL Critically low 12.0-16.0 [facility] Comment on above: Performed By: #### V ITAD, FETIBC, FERR #### [facility] [address] [place] [address] Dr. Andrey Hargrove MCH (RBC) [Entitic mass] 28.6 pg Normal 26.7-34.0 [facility] Comment on above: Performed By: #### V ITAD, FETIBC, FERR #### [facility] [address] [place] [address] Dr. Andrey Hargrove MCHC (RBC) [Mass/Vol] 34.0 g/dL Normal 29.9-35.2 [facility] Comment on above: Performed By: #### V ITAD, FETIBC, FERR #### [facility] [address] [place] [address] Dr. Andrey Hargrove MCV (RBC) [Entitic vol] 84.1 fL Normal 81.0-99.0 [facility] Comment on above: Performed By: #### V ITAD, FETIBC, FERR #### [facility] [address] [place] [address] Dr. Andrey Hargrove PLT 179 103/ul Normal 150-450 [facility] Comment on above: Performed By: #### V ITAD, FETIBC, FERR #### [facility] [address] [place] [address] Dr. Andrey Hargrove RBC 3.64 106/ul Critically low 4.20-5.40 [facility] Comment on above: Performed By: #### V ITAD, FETIBC, FERR #### [facility] [address] [place] [address] Dr. Andrey Hargrove WBC 9.5 103/ul Normal 4.0-11.0 [facility] Comment on above: Performed By: #### V ITAD, FETIBC, FERR #### [facility] [address] [place] [address] Dr. Andrey Hargrove IRON AND TIBCon 05-23-2022 % SATURATION 15.9 % Normal [facility] Comment on above: Performed By: #### L IPID, TSH, FT3 #### [facility] [address] [place] [address] Dr. Andrey Hargrove Iron [Mass/Vol] 44.0 ug/dL Critically low 50.0-170.0 [facility] Comment on above: Performed By: #### L IPID, TSH, FT3 #### [facility] [address] [place] [address] Dr. Andrey Hargrove TIBC DIRECT 276.0 ug/dL Normal 250.0-450.0 [facility] Comment on above: Performed By: #### L IPID, TSH, FT3 #### [facility] [address] [place] [address] Dr. Andrey Hargrove LIPID PROFILEon 05-23-2022 CHOL-HDL RATIO NORM SEE BELOW Normal [facility] Comment on above: Result Comment: 3.3 - 4.4 LOW RISK 4.4 - 7.1 AVERAGE RISK 7.1 - 11.0 MODERATE RISK >11.0 HIGH RISK Performed By: #### L IPID, TSH, FT3 #### [facility] [address] [place] [address] Dr. Andrey Hargrove Cholesterol [Mass/Vol] 129 mg/dL Normal <=200 [facility] Comment on above: Performed By: #### L IPID, TSH, FT3 #### [facility] [address] [place] [address] Dr. Andrey Hargrove Cholesterol in HDL [Mass/Vol] 55 mg/dL Normal 40-60 [facility] Comment on above: Performed By: #### L IPID, TSH, FT3 #### [facility] [address] [address] [address] Andrey Hargrove Cholesterol in LDL [Mass/Vol] 59.6 mg/dL Normal [facility] Comment on above: Performed By: #### L IPID, TSH, FT3 #### [facility] [address] [address] [address] Andrey Hargrove Cholesterol.total/Cho lesterol in HDL [Mass ratio] 2.3 {ratio} Normal [facility] Comment on above: Performed By: #### L IPID, TSH, FT3 #### [facility] [address] [address] [address] Andrey Hargrove HDL NORMAL > or = 60 mg/dl - LO W CARDIOVASCULAR RISK <40 mg/dl - HIGH CARDIOVASCULAR RISK Normal [facility] Comment on above: Performed By: #### L IPID, TSH, FT3 #### [facility] [address] [place] [address] Dr. Andrey Hargrove LDL CALC NORMAL SEE BELOW Normal [facility] Comment on above: Result Comment: <100 mg/dl OPTIMAL 100 - 129 mg/dl NEAR OR ABOVE OPTIMAL 130 - 159 mg/dl BORDERLINE HIGH 160 - 189 mg/dl HIGH >190 mg/dl VERY HIGH Performed By: #### L IPID, TSH, FT3 #### [facility] [address] [address] [address] Andrey Hargrove Triglyceride [Mass/Vol] 72 mg/dL Normal <=150 [facility] Comment on above: Performed By: #### L IPID, TSH, FT3 #### [facility] [address] [address] [address] Andrey Hargrove VLDL CALC 14.4 mg/dL Normal [facility] Comment on above: Performed By: #### L IPID, TSH, FT3 #### [facility] [address] [place] [address] Dr. Andrey Hargrove MAGNESIUMon 05-23-2022 Magnesium [Mass/Vol] 2.2 mg/dL Normal 1.8-2.4 [facility] Comment on above: Performed By: #### L IPID, TSH, FT3 #### [facility] [address] [place] [address] Dr. Andrey Hargrove RENAL FUNCTION PANELon 05-23 Albumin [Mass/Vol] 3.5 g/dL Normal 3.4-5.0 [facility] Comment on above: Performed By: #### L IPID, TSH, FT3 #### [facility] [address] [place] [address] Dr. Andrey Hargrove Calcium [Mass/Vol] 10.0 mg/dL Normal 8.5-10.1 [facility] Comment on above: Performed By: #### L IPID, TSH, FT3 #### [facility] [address] [place] [address] Dr. Andrey Hargrove Chloride [Moles/Vol] 98 mmol/L Normal 98-107 [facility] Comment on above: Performed By: #### L IPID, TSH, FT3 #### [facility] [address] [place] [address] Dr. Andrey Hargrove CO2 [Moles/Vol] 34.3 mmol/L Critically high 21.0-32.0 [facility] Comment on above: Performed By: #### L IPID, TSH, FT3 #### [facility] [address] [place] [address] Dr. Andrey Hargrove Creatinine [Mass/Vol] 2.24 mg/dL Critically high 0.55-1.02 [facility] Comment on above: Performed By: #### L IPID, TSH, FT3 #### [facility] [address] [place] [address] Dr. Andrey Hargrove EGFR-AF MALTESE 26 mL/min/1.73m2 Critically low >=60 [facility] Comment on above: Performed By: #### L IPID, TSH, FT3 #### [facility] [address] [place] [address] Dr. Andrey Hargrove EGFR-NON AF MALTESE 22 mL/min/1.73m2 Critically low >=60 [facility] Comment on above: Performed By: #### L IPID, TSH, FT3 #### [facility] [address] [address] [address] Andrey Hargrove Glucose [Mass/Vol] 123 mg/dL Critically high 74-106 [facility] Comment on above: Performed By: #### L IPID, TSH, FT3 #### [facility] [address] [place] [address] Dr. Andrey Hargrove Phosphate [Mass/Vol] 5.2 mg/dL Critically high 2.6-4.7 [facility] Comment on above: Performed By: #### L IPID, TSH, FT3 #### [facility] [address] [place] [address] Dr. Andrey Hargrove Potassium [Moles/Vol] 3.0 mmol/L Critically low 3.5-5.1 [facility] Comment on above: Performed By: #### L IPID, TSH, FT3 #### [facility] [address] [address] [address] Andrey Hargrove Sodium [Moles/Vol] 137 mmol/L Normal 136-145 [facility] Comment on above: Performed By: #### L IPID, TSH, FT3 #### [facility] [address] [place] [address] Dr. Andrey Hargrove Urea nitrogen [Mass/Vol] 80.0 mg/dL Critically high 7.0-18.0 [facility] Comment on above: Performed By: #### L IPID, TSH, FT3 #### [facility] [address] [place] [address] Dr. Andrey Hargrove TSHon 05-23-2022 TSH 4.652 uIU/mL Critically high 0.358-3.740 [facility] Comment on above: Performed By: #### L IPID, TSH, FT3 #### [facility] [address] [place] [address] Dr. Andrey Hargrove UA RANDOM W/MICROSCOPICon BACTERIA NONE SEEN Normal NONE SEEN [facility] Comment on above: Performed By: #### V ITAD, FETIBC, FERR #### [facility] [address] [place] [address] Dr. Andrey Hargrove Bilirubin Ql (U) Negative Normal NEGATIVE [facility] Comment on above: Performed By: #### V ITAD, FETIBC, FERR #### [facility] [address] [address] [address] Andrey Hargrove CAST NONE SEEN Normal NONE SEEN [facility] Comment on above: Performed By: #### V ITAD, FETIBC, FERR #### [facility] [address] [place] [address] Dr. Andrey Hargrove Clarity (U) CLEAR Normal CLEAR [facility] Comment on above: Performed By: #### V ITAD, FETIBC, FERR #### [facility] [address] [place] [address] Dr. Andrey Hargrove Color (U) LT. YELLOW Normal YELLOW [facility] Comment on above: Performed By: #### V ITAD, FETIBC, FERR #### [facility] [address] [place] [address] Dr. Andrey Hargrove Crystals LM Nom (Urine sed) NONE SEEN Normal NONE SEEN [facility] Comment on above: Performed By: #### V ITAD, FETIBC, FERR #### [facility] [address] [place] [address] Dr. Andrey Hargrove Epithelial cells LM Ql (Urine sed) FEW Abnormal NONE SEEN /RARE [facility] Comment on above: Performed By: #### V ITAD, FETIBC, FERR #### [facility] [address] [place] [address] Dr. Andrey Hargrove Glucose Ql (U) Negative Normal NEGATIVE [facility] Comment on above: Performed By: #### V ITAD, FETIBC, FERR #### [facility] [address] [place] [address] Dr. Andrey Hargrove Hemoglobin Ql (U) TRACE-INTACT Abnormal NEGATIVE [facility] Comment on above: Performed By: #### V ITAD, FETIBC, FERR #### [facility] [address] [place] [address] Dr. Andrey Hargrove Ketones Ql (U) Negative Normal NEGATIVE [facility] Comment on above: Performed By: #### V ITAD, FETIBC, FERR #### [facility] [address] [place] [address] Dr. Andrey Hargrove LEUKOCYTES SMALL Abnormal NEGATIVE [facility] Comment on above: Performed By: #### V ITAD, FETIBC, FERR #### [facility] [address] [place] [address] Dr. Andrey Hargrove MUCOUS NONE SEEN Normal NONE SEEN [facility] Comment on above: Performed By: #### V ITAD, FETIBC, FERR #### [facility] [address] [place] [address] Dr. Andrey Hargrove Nitrite Ql (U) Negative Normal NEGATIVE [facility] Comment on above: Performed By: #### V ITAD, FETIBC, FERR #### [facility] [address] [place] [address] Dr. Andrey Hargrove pH (U) 5.5 [pH] Normal 5-9 [facility] Comment on above: Performed By: #### V ITAD, FETIBC, FERR #### [facility] [address] [place] [address] Dr. Andrey Hargrove RBC 0-2 Normal 0-2 [facility] Comment on above: Performed By: #### V ITAD, FETIBC, FERR #### [facility] [address] [place] [address] Dr. Andrey Hargrove SPEC GRAVITY 1.010 Normal 1.005-<=1.02 5 [facility] Comment on above: Performed By: #### V ITAD, FETIBC, FERR #### [facility] [address] [place] [address] Dr. Andrey Hargrove UA PROTEIN TRACE Normal NEGATIVE/ TRACE [facility] Comment on above: Performed By: #### V ITAD, FETIBC, FERR #### [facility] [address] [place] [address] Dr. Andrey Hargrove Urobilinogen Qn (U) 0.2 {Kelly'U}/dL Normal 0.2 - 1. 0 [facility] Comment on above: Performed By: #### V ITAD, FETIBC, FERR #### [facility] [address] [place] [address] Dr. Andrey Hargrove WBC 0-2 Abnormal NONE SEEN [facility] Comment on above: Performed By: #### V ITAD, FETIBC, FERR #### [facility] [address] [place] [address] Dr. Andrey Hargrove URIC ACID SERUMon 05-23-2022 Urate [Mass/Vol] 7.4 mg/dL Critically high 2.6-6.0 [facility] Comment on above: Performed By: #### L IPID, TSH, FT3 #### [facility] [address] [place] [address] Dr. Andrey Hargrove URINE T PROTEIN CREAT RATIOo n 05-23-2022 Protein (U) [Mass/Vol] 39.9 mg/dL Critically high <=12.0 [facility] Comment on above: Performed By: #### U RTPCR #### [facility] [address] [place] [address] Dr. Andrey Hargrove UR PROT CREAT RAT 0.64 Normal [facility] Comment on above: Performed By: #### U RTPCR #### [facility] [address] [place] [address] Dr. Andrey Hargrove URINE CREAT 62.30 mg/dL Normal 20.00-300.00 [facility] Comment on above: Performed By: #### U RTPCR #### [facility] [address] [place] [address] Dr. Andrey Hargrove VITAMIN D 25 OHon 05-23-2022 VIT D 25-OH 90.7 ng/mL Normal [facility] Comment on above: Performed By: #### L IPID, TSH, FT3 #### [facility] [address] [place] [address] Dr. Andrey Hargrove VIT D RANGES SEE BELOW Normal [facility] Comment on above: Result Comment: <20 ng/mL Vit D deficient 20 - <30 ng/mL Vit D insufficient 30 - 100 ng/mL Vit D sufficient >100 ng/mL Potential Toxicity Performed By: #### L IPID, TSH, FT3 #### [facility] [address] [place] [address] Dr. Andrey Hargrove MAGNESIUMon 05-14-2022 Magnesium [Mass/Vol] 2.1 mg/dL Normal 1.8-2.4 [facility] Comment on above: Performed By: #### L IPID, TSH, FT3 #### [facility] [address] [address] [address] Andrey Hargrove PROF CHEM 8 (BAS METB)on Anion gap [Moles/Vol] 12.0 mmol/L Normal [facility] Comment on above: Performed By: #### L IPID, TSH, FT3 #### [facility] [address] [place] [address] Dr. Andrey Hargrove Calcium [Mass/Vol] 9.0 mg/dL Normal 8.5-10.1 [facility] Comment on above: Performed By: #### L IPID, TSH, FT3 #### [facility] [address] [address] [address] Andrey Hargrove Chloride [Moles/Vol] 97 mmol/L Critically low 98-107 [facility] Comment on above: Performed By: #### L IPID, TSH, FT3 #### [facility] [address] [place] [address] Dr. Andrey Hargrove CO2 [Moles/Vol] 30.4 mmol/L Normal 21.0-32.0 [facility] Comment on above: Performed By: #### L IPID, TSH, FT3 #### [facility] [address] [address] [address] Andrey Hargrove Creatinine [Mass/Vol] 2.28 mg/dL Critically high 0.55-1.02 [facility] Comment on above: Performed By: #### L IPID, TSH, FT3 #### [facility] [address] [address] [address] Andrey Hargrove EGFR-AF MALTESE 26 mL/min/1.73m2 Critically low >=60 [facility] Comment on above: Performed By: #### L IPID, TSH, FT3 #### [facility] [address] [address] [address] Andrey Hargrove EGFR-NON AF MALTESE 21 mL/min/1.73m2 Critically low >=60 [facility] Comment on above: Performed By: #### L IPID, TSH, FT3 #### [facility] [address] [address] [address] Andrey Hargrove Glucose [Mass/Vol] 190 mg/dL Critically high 74-106 [facility] Comment on above: Performed By: #### L IPID, TSH, FT3 #### [facility] [address] [place] [address] Dr. Andrey Hargrove Potassium [Moles/Vol] 3.4 mmol/L Critically low 3.5-5.1 [facility] Comment on above: Performed By: #### L IPID, TSH, FT3 #### [facility] [address] [place] [address] Dr. Andrey Hargrove Sodium [Moles/Vol] 136 mmol/L Normal 136-145 [facility] Comment on above: Performed By: #### L IPID, TSH, FT3 #### [facility] [address] [place] [address] Dr. Andrey Hargrove Urea nitrogen [Mass/Vol] 73.0 mg/dL Critically high 7.0-18.0 [facility] Comment on above: Performed By: #### L IPID, TSH, FT3 #### [facility] [address] [place] [address] Dr. Andrey Hargrove Urea nitrogen/Creatinine [Mass ratio] 32.0 mg/mg Normal [facility] Comment on above: Performed By: #### L IPID, TSH, FT3 #### [facility] [address] [place] [address] Dr. Andrey Hargrove XR CHEST 2 Von [...] RENETTA RENEE Date: 2022-05-12 09:12 Normal [facility] BNPon 05-11-2022 Natriuretic peptide B (Bld) [Mass/Vol] 7074.0 pg/mL Critically high <=900.0 [facility] Comment on above: Performed By: #### V ITAD, FETIBC, FERR #### [facility] [address] [address] [address] Andrey Hargrove CBC AUTO DIFFon 05-11-2022 BASO # 0.1 103/ul Normal 0.0-0.1 [facility] Comment on above: Performed By: #### V ITAD, FETIBC, FERR #### [facility] [address] [address] [address] Andrey Hargrove Basophils/100 WBC (Bld) 0.7 % Normal 0.2-2.0 [facility] Comment on above: Performed By: #### V ITAD, FETIBC, FERR #### [facility] [address] [address] [address] Andrey Hargrove EO # 0.3 103/ul Normal 0.0-0.7 [facility] Comment on above: Performed By: #### V ITAD, FETIBC, FERR #### [facility] [address] [address] [address] Andrey Hargrove Eosinophils/100 WBC (Bld) 3.8 % Normal 0.9-7.0 [facility] Comment on above: Performed By: #### V ITAD, FETIBC, FERR #### [facility] [address] [address] [address] Andrey Hargrove Erythrocyte distribution width (RBC) [Ratio] 14.7 % Normal 11.0-15.0 [facility] Comment on above: Performed By: #### V ITAD, FETIBC, FERR #### [facility] [address] [place] [address] Dr. Andrey Hargrove Hematocrit (Bld) [Volume fraction] 29.6 % Critically low 36.0-48.0 [facility] Comment on above: Performed By: #### V ITAD, FETIBC, FERR #### [facility] [address] [place] [address] Dr. Andrey Hargrove Hemoglobin (Bld) [Mass/Vol] 9.9 g/dL Critically low 12.0-16.0 [facility] Comment on above: Performed By: #### V ITAD, FETIBC, FERR #### [facility] [address] [place] [address] Dr. Andrey Hargrove IG # 0.03 10e3/ul Normal 0.00-0.03 [facility] Comment on above: Performed By: #### V ITAD, FETIBC, FERR #### [facility] [address] [place] [address] Dr. Andrey Hargrove IG % 0.4 % Normal 0.0-0.5 [facility] Comment on above: Performed By: #### V ITAD, FETIBC, FERR #### [facility] [address] [place] [address] Dr. Andrey Hargrove LYMPH # 1.3 103/ul Normal 1.2-3.8 [facility] Comment on above: Performed By: #### V ITAD, FETIBC, FERR #### [facility] [address] [place] [address] Dr. Andrey Hargrove Lymphocytes/100 WBC (Bld) 16.3 % Critically low 20.5-60.0 [facility] Comment on above: Performed By: #### V ITAD, FETIBC, FERR #### [facility] [address] [place] [address] Dr. Andrey Hargrove MANUAL DIFF REQ NO Normal [facility] Comment on above: Performed By: #### V ITAD, FETIBC, FERR #### [facility] [address] [place] [address] Dr. Andrey Hargrove MCH (RBC) [Entitic mass] 28.7 pg Normal 26.7-34.0 [facility] Comment on above: Performed By: #### V ITAD, FETIBC, FERR #### [facility] [address] [place] [address] Dr. Andrey Hargrove MCHC (RBC) [Mass/Vol] 33.4 g/dL Normal 29.9-35.2 [facility] Comment on above: Performed By: #### V ITAD, FETIBC, FERR #### [facility] [address] [place] [address] Dr. Andrey Hargrove MCV (RBC) [Entitic vol] 85.8 fL Normal 81.0-99.0 [facility] Comment on above: Performed By: #### V ITAD, FETIBC, FERR #### [facility] [address] [place] [address] Dr. Andrey Hargrove MONO # 0.7 103/ul Normal 0.3-0.8 [facility] Comment on above: Performed By: #### V ITAD, FETIBC, FERR #### [facility] [address] [place] [address] Dr. Andrey Hargrove Monocytes/100 WBC (Bld) 8.7 % Normal 1.7-12.0 [facility] Comment on above: Performed By: #### V ITAD, FETIBC, FERR #### [facility] [address] [place] [address] Dr. Andrey Hargrove NEUT # 5.4 103/ul Normal 1.4-6.5 [facility] Comment on above: Performed By: #### V ITAD, FETIBC, FERR #### [facility] [address] [place] [address] Dr. Andrey Hargrove Neutrophils/100 WBC (Bld) 70.1 % Normal 43.0-75.0 [facility] Comment on above: Performed By: #### V ITAD, FETIBC, FERR #### [facility] [address] [place] [address] Dr. Andrey Hargrove Platelet mean volume (Bld) [Entitic vol] 10.9 fL Normal 9.5-13.5 [facility] Comment on above: Performed By: #### V ITAD, FETIBC, FERR #### [facility] [address] [place] [address] Dr. Andrey Hargrove PLT 171 103/ul Normal 150-450 [facility] Comment on above: Performed By: #### V ITAD, FETIBC, FERR #### [facility] [address] [place] [address] Dr. Andrey Hargrove RBC 3.45 106/ul Critically low 4.20-5.40 [facility] Comment on above: Performed By: #### V ITAD, FETIBC, FERR #### [facility] [address] [place] [address] Dr. Andrey Hargrove WBC 7.7 103/ul Normal 4.0-11.0 [facility] Comment on above: Performed By: #### V ITAD, FETIBC, FERR #### [facility] [address] [place] [address] Dr. Andrey Hargrove PROF CHEM 8 (BAS METB)on Anion gap [Moles/Vol] 9.8 mmol/L Normal [facility] Comment on above: Performed By: #### V ITAD, FETIBC, FERR #### [facility] [address] [place] [address] Dr. Andrey Hargrove Calcium [Mass/Vol] 9.1 mg/dL Normal 8.5-10.1 [facility] Comment on above: Performed By: #### V ITAD, FETIBC, FERR #### [facility] [address] [place] [address] Dr. Andrey Hargrove Chloride [Moles/Vol] 96 mmol/L Critically low 98-107 [facility] Comment on above: Performed By: #### V ITAD, FETIBC, FERR #### [facility] [address] [place] [address] Dr. Andrey Hargrove CO2 [Moles/Vol] 30.8 mmol/L Normal 21.0-32.0 [facility] Comment on above: Performed By: #### V ITAD, FETIBC, FERR #### [facility] [address] [address] [address] Andrey Hargrove Creatinine [Mass/Vol] 2.28 mg/dL Critically high 0.55-1.02 [facility] Comment on above: Performed By: #### V ITAD, FETIBC, FERR #### [facility] [address] [place] [address] Dr. Andrey Hargrove EGFR-AF MALTESE 26 mL/min/1.73m2 Critically low >=60 [facility] Comment on above: Performed By: #### V ITAD, FETIBC, FERR #### [facility] [address] [place] [address] Dr. Andrey Hargrove EGFR-NON AF MALTESE 21 mL/min/1.73m2 Critically low >=60 [facility] Comment on above: Performed By: #### V ITAD, FETIBC, FERR #### [facility] [address] [address] [address] Andrey Hargrove Glucose [Mass/Vol] 158 mg/dL Critically high 74-106 [facility] Comment on above: Performed By: #### V ITAD, FETIBC, FERR #### [facility] [address] [place] [address] Dr. Andrey Hargrove Potassium [Moles/Vol] 3.6 mmol/L Normal 3.5-5.1 [facility] Comment on above: Performed By: #### V ITAD, FETIBC, FERR #### [facility] [address] [address] [address] Andrey Hargrove Sodium [Moles/Vol] 133 mmol/L Critically low 136-145 [facility] Comment on above: Performed By: #### V ITAD, FETIBC, FERR #### [facility] [address] [address] [address] Andrey Hargrove Urea nitrogen [Mass/Vol] 66.0 mg/dL Critically high 7.0-18.0 [facility] Comment on above: Performed By: #### V ITAD, FETIBC, FERR #### [facility] [address] [place] [address] Dr. Andrey Hargrove Urea nitrogen/Creatinine [Mass ratio] 28.9 mg/mg Normal [facility] Comment on above: Performed By: #### V ITAD, FETIBC, FERR #### [facility] [address] [place] [address] Dr. Andrey Hargrove MAGNESIUMon 03-17-2022 Magnesium [Mass/Vol] 1.9 mg/dL Normal 1.8-2.4 [facility] Comment on above: Performed By: #### V ITAD, FETIBC, FERR #### [facility] [address] [place] [address] Dr. Andrey Hargrove PROF CHEM 8 (BAS METB)on Anion gap [Moles/Vol] 11.7 mmol/L Normal [facility] Comment on above: Performed By: #### V ITAD, FETIBC, FERR #### [facility] [address] [place] [address] Dr. Andrey Hargrove Calcium [Mass/Vol] 9.4 mg/dL Normal 8.5-10.1 [facility] Comment on above: Performed By: #### V ITAD, FETIBC, FERR #### [facility] [address] [place] [address] Dr. Andrey Hargrove Chloride [Moles/Vol] 97 mmol/L Critically low 98-107 [facility] Comment on above: Performed By: #### V ITAD, FETIBC, FERR #### [facility] [address] [place] [address] Dr. Andrey Hargrove CO2 [Moles/Vol] 29.0 mmol/L Normal 21.0-32.0 [facility] Comment on above: Performed By: #### V ITAD, FETIBC, FERR #### [facility] [address] [place] [address] Dr. Andrey Hargrove Creatinine [Mass/Vol] 2.02 mg/dL Critically high 0.55-1.02 [facility] Comment on above: Performed By: #### V ITAD, FETIBC, FERR #### [facility] [address] [place] [address] Dr. Andrey Hargrove EGFR-AF MALTESE 30 mL/min/1.73m2 Critically low >=60 [facility] Comment on above: Performed By: #### V ITAD, FETIBC, FERR #### [facility] [address] [place] [address] Dr. Andrey Hargrove EGFR-NON AF MALTESE 24 mL/min/1.73m2 Critically low >=60 [facility] Comment on above: Performed By: #### V ITAD, FETIBC, FERR #### [facility] [address] [place] [address] Dr. Andrey Hargrove Glucose [Mass/Vol] 204 mg/dL Critically high 74-106 [facility] Comment on above: Performed By: #### V ITAD, FETIBC, FERR #### [facility] [address] [place] [address] Dr. Andrey Hargrove Potassium [Moles/Vol] 3.7 mmol/L Normal 3.5-5.1 [facility] Comment on above: Performed By: #### V ITAD, FETIBC, FERR #### [facility] [address] [place] [address] Dr. Andrey Hargrove Sodium [Moles/Vol] 134 mmol/L Critically low 136-145 [facility] Comment on above: Performed By: #### V ITAD, FETIBC, FERR #### [facility] [address] [place] [address] Dr. Andrey Hargrove Urea nitrogen [Mass/Vol] 60.0 mg/dL Critically high 7.0-18.0 [facility] Comment on above: Performed By: #### V ITAD, FETIBC, FERR #### [facility] [address] [place] [address] Dr. Andrey Hargrove Urea nitrogen/Creatinine [Mass ratio] 29.7 mg/mg Normal [facility] Comment on above: Performed By: #### V ITAD, FETIBC, FERR #### [facility] [address] [place] [address] Dr. Andrey Hargrove PTH INTACTon 01-18-2022 PTH, Intact 51 pg/mL Normal 15-65 [facility] Comment on above: Performed By: #### L IPID, TSH, FT3 #### [facility] [address] [place] [address] Dr. Andrey Hargrove FERRITINon 01-17-2022 Ferritin [Mass/Vol] 133.0 ng/mL Normal 8.0-252.0 [facility] Comment on above: Performed By: #### V ITAD, FETIBC, FERR #### [facility] [address] [place] [address] Dr. Andrey Hargrove HEMOGRAM AND PLATELon 2021 Hematocrit (Bld) [Volume fraction] 31.7 % Critically low 36.0-48.0 [facility] Comment on above: Performed By: #### V ITAD, FETIBC, FERR #### [facility] [address] [place] [address] Dr. Andrey Hargrove Hemoglobin (Bld) [Mass/Vol] 10.2 g/dL Critically low 12.0-16.0 [facility] Comment on above: Performed By: #### V ITAD, FETIBC, FERR #### [facility] [address] [place] [address] Dr. Andrey Hargrove MCH (RBC) [Entitic mass] 28.3 pg Normal 26.7-34.0 [facility] Comment on above: Performed By: #### V ITAD, FETIBC, FERR #### [facility] [address] [place] [address] Dr. Andrey Hargrove MCHC (RBC) [Mass/Vol] 32.2 g/dL Normal 29.9-35.2 [facility] Comment on above: Performed By: #### V ITAD, FETIBC, FERR #### [facility] [address] [place] [address] Dr. Andrey Hargrove MCV (RBC) [Entitic vol] 88.1 fL Normal 81.0-99.0 [facility] Comment on above: Performed By: #### V ITAD, FETIBC, FERR #### [facility] [address] [place] [address] Dr. Andrey Hargrove PLT 198 103/ul Normal 150-450 [facility] Comment on above: Performed By: #### V ITAD, FETIBC, FERR #### [facility] [address] [place] [address] Dr. Andrey Hargrove RBC 3.60 106/ul Critically low 4.20-5.40 [facility] Comment on above: Performed By: #### V ITAD, FETIBC, FERR #### [facility] [address] [place] [address] Dr. Andrey Hargrove WBC 8.5 103/ul Normal 4.0-11.0 [facility] Comment on above: Performed By: #### V ITAD, FETIBC, FERR #### [facility] [address] [place] [address] Dr. Andrey Hargrove IRON AND TIBCon 01-17-2022 % SATURATION 17.8 % Normal [facility] Comment on above: Performed By: #### V ITAD, FETIBC, FERR #### [facility] [address] [place] [address] Dr. Andrey Hargrove Iron [Mass/Vol] 47.0 ug/dL Critically low 50.0-170.0 [facility] Comment on above: Performed By: #### V ITAD, FETIBC, FERR #### [facility] [address] [place] [address] Dr. Andrey Hargrove TIBC DIRECT 264.0 ug/dL Normal 250.0-450.0 [facility] Comment on above: Performed By: #### V ITAD, FETIBC, FERR #### [facility] [address] [place] [address] Dr. Andrey Hargrove MAGNESIUMon 01-17-2022 Magnesium [Mass/Vol] 2.0 mg/dL Normal 1.8-2.4 [facility] Comment on above: Performed By: #### V ITAD, FETIBC, FERR #### [facility] [address] [place] [address] Dr. Andrey Hargrove RENAL FUNCTION PANELon 01-17 Albumin [Mass/Vol] 3.3 g/dL Critically low 3.4-5.0 [facility] Comment on above: Performed By: #### V ITAD, FETIBC, FERR #### [facility] [address] [place] [address] Dr. Andrey Hargrove Calcium [Mass/Vol] 9.1 mg/dL Normal 8.5-10.1 [facility] Comment on above: Performed By: #### V ITAD, FETIBC, FERR #### [facility] [address] [place] [address] Dr. Andrey Hargrove Chloride [Moles/Vol] 104 mmol/L Normal 98-107 [facility] Comment on above: Performed By: #### V ITAD, FETIBC, FERR #### [facility] [address] [place] [address] Dr. Andrey Hargrove CO2 [Moles/Vol] 27.6 mmol/L Normal 21.0-32.0 [facility] Comment on above: Performed By: #### V ITAD, FETIBC, FERR #### [facility] [address] [place] [address] Dr. Andrey Hargrove Creatinine [Mass/Vol] 1.71 mg/dL Critically high 0.55-1.02 [facility] Comment on above: Performed By: #### V ITAD, FETIBC, FERR #### [facility] [address] [place] [address] Dr. Andrey Hargrove EGFR-AF MALTESE 36 mL/min/1.73m2 Critically low >=60 [facility] Comment on above: Performed By: #### V ITAD, FETIBC, FERR #### [facility] [address] [place] [address] Dr. Andrey Hargrove EGFR-NON AF MALTESE 30 mL/min/1.73m2 Critically low >=60 [facility] Comment on above: Performed By: #### V ITAD, FETIBC, FERR #### [facility] [address] [place] [address] Dr. Andrey Hargrove Glucose [Mass/Vol] 115 mg/dL Critically high 74-106 [facility] Comment on above: Performed By: #### V ITAD, FETIBC, FERR #### [facility] [address] [place] [address] Dr. Andrey Hargrove Phosphate [Mass/Vol] 4.3 mg/dL Normal 2.6-4.7 [facility] Comment on above: Performed By: #### V ITAD, FETIBC, FERR #### [facility] [address] [place] [address] Dr. Andrey Hargrove Potassium [Moles/Vol] 3.9 mmol/L Normal 3.5-5.1 [facility] Comment on above: Performed By: #### V ITAD, FETIBC, FERR #### [facility] [address] [place] [address] Dr. Andrey Hargrove Sodium [Moles/Vol] 139 mmol/L Normal 136-145 [facility] Comment on above: Performed By: #### V ITAD, FETIBC, FERR #### [facility] [address] [place] [address] Dr. Andrey Hargrove Urea nitrogen [Mass/Vol] 38.0 mg/dL Critically high 7.0-18.0 [facility] Comment on above: Performed By: #### V ITAD, FETIBC, FERR #### [facility] [address] [place] [address] Dr. Andrey Hargrove UA RANDOM W/MICROSCOPICon BACTERIA NONE SEEN Normal NONE SEEN [facility] Comment on above: Performed By: #### L IPID, TSH, FT3 #### [facility] [address] [place] [address] Dr. Andrey Hargrove Bilirubin Ql (U) Negative Normal NEGATIVE [facility] Comment on above: Performed By: #### L IPID, TSH, FT3 #### [facility] [address] [place] [address] Dr. Andrey Hargrove CAST SEEN Abnormal NONE SEEN [facility] Comment on above: Performed By: #### L IPID, TSH, FT3 #### [facility] [address] [address] [address] Andrey Hargrove Clarity (U) CLEAR Normal CLEAR [facility] Comment on above: Performed By: #### L IPID, TSH, FT3 #### [facility] [address] [address] [address] Andrey Hargrove Color (U) LT. YELLOW Normal YELLOW [facility] Comment on above: Performed By: #### L IPID, TSH, FT3 #### [facility] [address] [address] [address] Andrey Hargrove Crystals LM Nom (Urine sed) NONE SEEN Normal NONE SEEN [facility] Comment on above: Performed By: #### L IPID, TSH, FT3 #### [facility] [address] [place] [address] Dr. Andrey Hargrove Epithelial cells LM Ql (Urine sed) FEW Abnormal NONE SEEN /RARE [facility] Comment on above: Performed By: #### L IPID, TSH, FT3 #### [facility] [address] [address] [address] Andrey Hargrove Glucose Ql (U) Negative Normal NEGATIVE [facility] Comment on above: Performed By: #### L IPID, TSH, FT3 #### [facility] [address] [address] [address] Andrey Hargrove Hemoglobin Ql (U) Negative Normal NEGATIVE [facility] Comment on above: Performed By: #### L IPID, TSH, FT3 #### [facility] [address] [address] [address] Andrey Hargrove HYALINE CAST RARE Normal [facility] Comment on above: Performed By: #### L IPID, TSH, FT3 #### [facility] [address] [address] [address] Andrey Hargrove Ketones Ql (U) Negative Normal NEGATIVE [facility] Comment on above: Performed By: #### L IPID, TSH, FT3 #### [facility] [address] [place] [address] Dr. Andrey Hargrove LEUKOCYTES TRACE Abnormal NEGATIVE [facility] Comment on above: Performed By: #### L IPID, TSH, FT3 #### [facility] [address] [address] [address] Andrey Hargrove MUCOUS NONE SEEN Normal NONE SEEN [facility] Comment on above: Performed By: #### L IPID, TSH, FT3 #### [facility] [address] [address] [address] Andrey Hargrove Nitrite Ql (U) Negative Normal NEGATIVE [facility] Comment on above: Performed By: #### L IPID, TSH, FT3 #### [facility] [address] [place] [address] Dr. Andrey Hargrove pH (U) 5.0 [pH] Normal 5-9 [facility] Comment on above: Performed By: #### L IPID, TSH, FT3 #### [facility] [address] [place] [address] Dr. Andrey Hargrove RBC 0-2 Normal 0-2 [facility] Comment on above: Performed By: #### L IPID, TSH, FT3 #### [facility] [address] [place] [address] Dr. Andrey Hargrove SPEC GRAVITY 1.020 Normal 1.005-<=1.02 5 [facility] Comment on above: Performed By: #### L IPID, TSH, FT3 #### [facility] [address] [place] [address] Dr. Andrey Hargrove UA PROTEIN Negative Normal NEGATIVE/ TRACE [facility] Comment on above: Performed By: #### L IPID, TSH, FT3 #### [facility] [address] [place] [address] Dr. Andrey Hargrove Urobilinogen Qn (U) 0.2 {Kelly'U}/dL Normal 0.2 - 1. 0 [facility] Comment on above: Performed By: #### L IPID, TSH, FT3 #### [facility] [address] [place] [address] Dr. Andrey Hargrove WBC 2-5 Abnormal NONE SEEN [facility] Comment on above: Performed By: #### L IPID, TSH, FT3 #### [facility] [address] [place] [address] Dr. Andrey Hargrove URIC ACID SERUMon 01-17-2022 Urate [Mass/Vol] 5.4 mg/dL Normal 2.6-6.0 [facility] Comment on above: Performed By: #### V ITAD, FETIBC, FERR #### [facility] [address] [place] [address] Dr. Andrey Hargrove URINE T PROTEIN CREAT RATIOo n 01-17-2022 Protein (U) [Mass/Vol] 15.3 mg/dL Critically high <=12.0 [facility] Comment on above: Performed By: #### V ITAD, FETIBC, FERR #### [facility] [address] [place] [address] Dr. Andrey Hargrove UR PROT CREAT RAT 0.36 Normal [facility] Comment on above: Performed By: #### V ITAD, FETIBC, FERR #### [facility] [address] [address] [address] Andrey Hargrove URINE CREAT 42.16 mg/dL Normal 20.00-300.00 [facility] Comment on above: Performed By: #### V ITAD, FETIBC, FERR #### [facility] [address] [place] [address] Dr. Andrey Hargrove VITAMIN D 25 OHon 01-17-2022 VIT D 25-OH 73.8 ng/mL Normal [facility] Comment on above: Performed By: #### V ITAD, FETIBC, FERR #### [facility] [address] [place] [address] Dr. Andrey Hargrove VIT D RANGES SEE BELOW Normal [facility] Comment on above: Result Comment: <20 ng/mL Vit D deficient 20 - <30 ng/mL Vit D insufficient 30 - 100 ng/mL Vit D sufficient >100 ng/mL Potential Toxicity Performed By: #### V ITAD, FETIBC, FERR #### [facility] [address] [place] [address] Dr. Andrey Hargrove PROF CHEM 8 (BAS METB)on Anion gap [Moles/Vol] 13.3 mmol/L Normal [facility] Comment on above: Performed By: #### V ITAD, FETIBC, FERR #### [facility] [address] [place] [address] Dr. Andrey Hargrove Calcium [Mass/Vol] 9.5 mg/dL Normal 8.5-10.1 [facility] [facility] Comment on above: Performed By: #### V ITAD, FETIBC, FERR #### [facility] [address] [place] [address] Dr. Andrey Hargrove Chloride [Moles/Vol] 98 mmol/L Normal 98-107 [facility] Comment on above: Performed By: #### V ITAD, FETIBC, FERR #### [facility] [address] [place] [address] Dr. Andrey Hargrove CO2 [Moles/Vol] 25.7 mmol/L Normal 21.0-32.0 [facility] Comment on above: Performed By: #### V ITAD, FETIBC, FERR #### [facility] [address] [place] [address] Dr. Andrey Hargrove Creatinine [Mass/Vol] 2.92 mg/dL Critically high 0.55-1.02 [facility] Comment on above: Performed By: #### V ITAD, FETIBC, FERR #### [facility] [address] [place] [address] Dr. Andrey Hargrove EGFR-AF MALTESE 19 mL/min/1.73m2 Critically low >=60 [facility] Comment on above: Performed By: #### V ITAD, FETIBC, FERR #### [facility] [address] [place] [address] Dr. Andrey Hargrove EGFR-NON AF MALTESE 16 mL/min/1.73m2 Critically low >=60 [facility] Comment on above: Performed By: #### V ITAD, FETIBC, FERR #### [facility] [address] [place] [address] [address] Andrey Hargrove Glucose [Mass/Vol] 156 mg/dL Critically high 74-106 T [facility] Comment on above: Performed By: #### V ITAD, FETIBC, FERR #### [facility] [address] [place] [address] Dr. Andrey Hargrove Potassium [Moles/Vol] 5.0 mmol/L Normal 3.5-5.1 [facility] Comment on above: Performed By: #### V ITAD, FETIBC, FERR #### [facility] [address] [place] [address] Dr. Andrey Hargrove Sodium [Moles/Vol] 132 mmol/L Critically low 136-145 [facility] Comment on above: Performed By: #### V ITAD, FETIBC, FERR #### [facility] [address] [place] [address] Dr. Andrey Hargrove Urea nitrogen [Mass/Vol] 77.0 mg/dL Critically high 7.0-18.0 [facility] Comment on above: Result Comment: CALL ED TO FRANCIS JUNG RMA Performed By: #### V ITAD, FETIBC, FERR #### [facility] [address] [place] [address] Dr. Andrey Hargrove Urea nitrogen/Creatinine [Mass ratio] 26.4 mg/mg Normal [facility] Comment on above: Performed By: #### V ITAD, FETIBC, FERR #### [facility] [address] [place] [address] Dr. Andrey Hargrove Cardiovascular Lab Reporton 12-10-2021 Cardiovascular Lab Report [facility] Patient Name: [facility] MR #: [id number] Physician: Karthik Brewster M.D. Medicine Service Date: 12/09/2021 Division of Birthdate: 1950 Cardiology Room #: Adult Cardiovascular Services [place] [address] Cardiovascular Laboratory Report INDICATION: The patient is [...] signed informed consent. 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 The right neck area was prepped and draped in usual fashion. Micropuncture technique and ultrasound guidance were used for access in the right internal jugular vein. A 5[place] x 11 cm sheath was placed. A 5[place] Dumont catheter was used for right heart [...] Fish M.D. Date Trans: 12/09/2021 11:37 P/monikao [id number] cc: John Perdomo D.O. [address] [facility] [address] Normal [facility] CBC COMPLETE BLOOD COUNTon 0 12-09-2021 Erythrocyte distribution width (RBC) [Ratio] 13.6 % Normal 11.5-15.0 [facility] Comment on above: Performed By: #### 5 [id number] #### [facility] [address] [place] [place] [address], [facility] Hematocrit (Bld) [Volume fraction] 35.6 % Low 36.0-45.0 [facility] Comment on above: Performed By: #### 5 0608 #### [facility] [address] [place] [id number], [facility] Hemoglobin (Bld) [Mass/Vol] 11.8 g/dL Low 12.0-15.0 [facility] Comment on above: Performed By: #### 5 0608 #### [facility] [address] [place] [id number], [facility] MCH (RBC) [Entitic mass] 28.6 pg Normal 27.0-33.0 [facility] Comment on above: Performed By: #### 5 0608 #### [facility] [address] [place] [address], [facility] MCHC (RBC) [Mass/Vol] 33.1 g/dL Normal 32.0-35.0 [facility] Comment on above: Performed By: #### 5 0608 #### [facility] [address] [place] [id number], [facility] MCV (RBC) [Entitic vol] 86.2 fL Normal 82.0-98.0 [facility] Comment on above: Performed By: #### 5 0608 #### [facility] [address] Nucleated RBC/100 WBC (Bld) [Ratio] 0 % Normal 0-0 [facility] Comment on above: Performed By: #### 5 0608 #### [facility] [address] [place] [address], [facility] PLAT CNT 240 10*3/uL Normal 150-400 [facility] Comment on above: Performed By: #### 5 0608 #### [facility] [address] RBC (Bld) [#/Vol] 4.13 10*6/uL Normal 3.80-5.00 [facility] Comment on above: Performed By: #### 5 0608 #### [facility] [address] WBC (Bld) [#/Vol] 14.13 10*3/uL High 4.00-10.60 [facility] Comment on above: Performed By: #### 5 0608 #### [facility] [address] [facility]on SARS-CoV-2 (COVID-19) RNA JAYASHREE+probe Ql (Unsp spec) Not detected Normal NOT DETECTED [facility] Comment on above: Result Comment: This test is not yet approved or cleared by the [place] FDA. When there are no FDA-approved or cleared tests available, and other criteria are met, FDA can make tests available under an emergency access mechanism called an Emergency Use Authorization (EUA). The EUA for this test is supported by the [place] of Health and Human Service's (HHS's) declaration [...] By: #### V ITAD, FETIBC, FERR #### [facility] [address] [place] [address] Dr. Andrey Hargrove ECHOCARDIO M/2D COMPLETEon 0 12-06-2021 ECHOCARDIO M/2D COMPLETE Patient: CLAUDIA ESTRELLA Exam Date: 12/06/2021 : 1950 Gender:F Ordering : CARMINA ROSALES Admission #: [id number] Family : DR JOHN PERDOMO D.O. Order #: [id number] CLICK HERE TO VIEW EXAM ECHOCARDIOGRAM REPORT [...] Area(A4C): 14.80 cm2 Left Atrium Systolic Volume(A2C): 14328 mm3 Left Atrium Systolic Volume(A4C): 25624 mm3 Mitral Valve MV E to A [...] Karthik Fish M.D. on 12/06/2021 at 17:31 [facility] 12-01-2021 Natriuretic peptide B (Bld) [Mass/Vol] 5127.0 pg/mL Critically high <=900.0 [facility] Comment on above: Performed By: #### V ITAD, FETIBC, FERR #### [facility] [address] [place] [address] Dr. Andrey Hargrove PROF CHEM 8 (BAS METB)on Anion gap [Moles/Vol] 13.9 mmol/L Normal [facility] Comment on above: Performed By: #### V ITAD, FETIBC, FERR #### [facility] [address] [place] [address] Dr. Andrey Hargrove Calcium [Mass/Vol] 9.4 mg/dL Normal 8.5-10.1 [facility] Comment on above: Performed By: #### V ITAD, FETIBC, FERR #### [facility] [address] [place] [address] Dr. Andrey Hargrove Chloride [Moles/Vol] 99 mmol/L Normal 98-107 [facility] Comment on above: Performed By: #### V ITAD, FETIBC, FERR #### [facility] [address] [place] [address] Dr. Andrey Hargrove CO2 [Moles/Vol] 28.4 mmol/L Normal 21.0-32.0 [facility] Comment on above: Performed By: #### V ITAD, FETIBC, FERR #### [facility] [address] [place] [address] Dr. Andrey Hargrove Creatinine [Mass/Vol] 2.11 mg/dL Critically high 0.55-1.02 [facility] Comment on above: Performed By: #### V ITAD, FETIBC, FERR #### [facility] [address] [place] [address] Dr. Andrey Hargrove EGFR-AF MALTESE 28 mL/min/1.73m2 Critically low >=60 [facility] Comment on above: Performed By: #### V ITAD, FETIBC, FERR #### [facility] [address] [place] [address] Dr. Andrey Hargrove EGFR-NON AF MALTESE 23 mL/min/1.73m2 Critically low >=60 [facility] Comment on above: Performed By: #### V ITAD, FETIBC, FERR #### [facility] [address] [place] [address] Dr. Andrey Hargrove Glucose [Mass/Vol] 179 mg/dL Critically high 74-106 T [facility] Comment on above: Performed By: #### V ITAD, FETIBC, FERR #### [facility] [address] [place] [address] Dr. Andrey Hargrove Potassium [Moles/Vol] 4.3 mmol/L Normal 3.5-5.1 [facility] Comment on above: Performed By: #### V ITAD, FETIBC, FERR #### [facility] [address] [place] [address] Dr. Andrey Hargrove Sodium [Moles/Vol] 137 mmol/L Normal 136-145 [facility] Comment on above: Performed By: #### V ITAD, FETIBC, FERR #### [facility] [address] [place] [address] Dr. Andrey Hargrove Urea nitrogen [Mass/Vol] 62.0 mg/dL Critically high 7.0-18.0 [facility] Comment on above: Performed By: #### V ITAD, FETIBC, FERR #### [facility] [address] [place] [address] Dr. Andrey Hargrove Urea nitrogen/Creatinine [Mass ratio] 29.4 mg/mg Normal [facility] Comment on above: Performed By: #### V ITAD, FETIBC, FERR #### [facility] [address] [place] [address] Dr. Andrey Hargrove BNPon 11-19-2021 Natriuretic peptide B (Bld) [Mass/Vol] 4773.0 pg/mL Critically high <=900.0 [facility] Comment on above: Performed By: #### V ITAD, FETIBC, FERR #### [facility] [address] [place] [address] Dr. Andrey Hargrove PROF CHEM 8 (BAS METB)on Anion gap [Moles/Vol] 11.3 mmol/L Normal [facility] Comment on above: Performed By: #### V ITAD, FETIBC, FERR #### [facility] [address] [place] [address] Dr. Andrey Hargrove Calcium [Mass/Vol] 8.9 mg/dL Normal 8.5-10.1 [facility] Comment on above: Performed By: #### V ITAD, FETIBC, FERR #### [facility] [address] [place] [address] Dr. Andrey Hargrove Chloride [Moles/Vol] 100 mmol/L Normal 98-107 [facility] Comment on above: Performed By: #### V ITAD, FETIBC, FERR #### [facility] [address] [place] [address] Dr. Andrey Hargrove CO2 [Moles/Vol] 30.9 mmol/L Normal 21.0-32.0 [facility] Comment on above: Performed By: #### V ITAD, FETIBC, FERR #### [facility] [address] [place] [address] Dr. Andrey Hargrove Creatinine [Mass/Vol] 2.01 mg/dL Critically high 0.55-1.02 [facility] Comment on above: Performed By: #### V ITAD, FETIBC, FERR #### [facility] [address] [place] [address] Dr. Andrey Hargrove EGFR-AF MALTESE 30 mL/min/1.73m2 Critically low >=60 [facility] Comment on above: Performed By: #### V ITAD, FETIBC, FERR #### [facility] [address] [place] [address] Dr. Andrey Hargrove EGFR-NON AF MALTESE 24 mL/min/1.73m2 Critically low >=60 [facility] Comment on above: Performed By: #### V ITAD, FETIBC, FERR #### [facility] [address] [place] [address] Dr. Andrey Hargrove Glucose [Mass/Vol] 81 mg/dL Normal 74-106 [facility] Comment on above: Performed By: #### V ITAD, FETIBC, FERR #### [facility] [address] [place] [address] Dr. Andrey Hargrove Potassium [Moles/Vol] 3.2 mmol/L Critically low 3.5-5.1 [facility] Comment on above: Performed By: #### V ITAD, FETIBC, FERR #### [facility] [address] [place] [address] Dr. Andrey Hargrove Sodium [Moles/Vol] 139 mmol/L Normal 136-145 [facility] Comment on above: Performed By: #### V ITAD, FETIBC, FERR #### [facility] [address] [place] [address] Dr. Andrey Hargrove Urea nitrogen [Mass/Vol] 51.0 mg/dL Critically high 7.0-18.0 [facility] Comment on above: Performed By: #### V ITAD, FETIBC, FERR #### [facility] [address] [place] [address] Dr. Andrey Hargrove Urea nitrogen/Creatinine [Mass ratio] 25.4 mg/mg Normal [facility] Comment on above: Performed By: #### V ITAD, FETIBC, FERR #### [facility] [address] [place] [address] Dr. Andrey Hargrove COVID-19 Antigenon 2 COVID-19 [...] RAMON Kenny Disclaimer The Kenny SARS Antigen JSOE RAMON does not differentiate Kenny Disclaimer between SARS-CoV and SARS-CoV-2. COVID19 Blank Space Kenny Disclaimer This test was developed and its performance Kenny Disclaimer characteristic determined by [employer] and Kenny Disclaimer validated at [facility]. This Kenny Disclaimer test has not [...] is terminated or revoked sooner. PERFORMED BY: [facility] [place] [address] PATHOLOGIST [employer] JAMAL ALLEN M.D. [facility] Comment on above: Performed By: #### S OFCUONGPOS, COVID-19 KENNY #### [facility] [address] [place] [address] [facility] Kenny Ag Positiveon 07-31-19 Kenny Ag Positive Positive Critically abnormal Negative [facility] Comment on above: Result Comment: This is a duplicate Kenny SARS Antigen (JOSE RAMON) result to be used for statistical tracking purpose only. PERFORMED BY: [place] [address] PATHOLOGIST [employer] JAMAL ALLEN M.D. Performed By: #### S OFIAPOS, COVID-19 KENNY #### [place] [id number] [facility] Coding Summary.on 12-22-2020 Coding Summary. CD:[id number] G h0bWw+PGhlYWQ+DC4MHFL vK92xsNYsaZ1PJ7hUWH4P QRAKBASAAB3PPD2yaME3J MeeK8QltgJr BjdtgYRkYH58ULu8RXO4l KtbVGndwJ8maOPwP4n1Mh KdRL36oI42KXfgJKTzFhO 3LjZpbjsgbWFy I2lrKoCffHTbSmc+PHRhY mxlIHdpZHRoPScxMDAlJy OzjOfsPQ5iLr1mLZDiPRO vbGxhcHNlOiBj m8rxYBSfIFhyOZ7bkUjyQ 2JlyZC6TEFdy8n8Tc91cB I+JOCtSTM7aVweUZxws16 3SyJce7cbVVP3 yFPgORrsWFU9X69yh1H1U VRiEQRgYCC9cBU9zT4dmT lhihhoC9JisXPjQpY3RIA 8vSQqkT6geHfr ozvsiQ5fHzt+T69XBU3ZD FLXXV9WIpl2Y1SoElnsfK I+HD43YWWvNZ09jYEqqZK wa3zpgMz5ZsRq CIUgPFU2aMngVObyv7UaM HEzO92inFCyw0L5LOQfmX uuuLUhBhDwhDV0aA4eVTz wksnyk9rnxxde Bvxoj0kbvu51nY61A86pO PmpJZQsRHS5IMIgDOZsoZ morx3ehS9pDi8+FGnip1a pb9uniLn5OiRy BYVghjRqgAvuDXV7j0ImA c41I8FfsEruq9PzGql0dc 89nVFii8Y8rXT8TJdrKKB rpX7mSVmtCsT2 WFOoWbWolW83qGPgGKleS u4uhQpaaXeeDB6dWABrzy lxAPGpxL7oQDDecOJbmDa vMD5tCFXmcpdg t287SzUlFHQ8MFFjdKGaJ 5VwrW8fEaFqQQZgDBImX0 LvfAQrSQorH419FLtqXdP 7SKByajOyP8Wq VEOruBsqQqE6k5X4Ae3Tb 6GihfdbSFJ5OTlyMEW6Kj WxPaInDaX7N7GoTui9KJW fiKjkAV0fQ1Ky AIPzqwroogntdMN5RPGdF HUcaR37eWElLGdiJx8ry1 A9q353IKNiVXHnxO02Va5 udDogMTBwdCBU qO0xciohi1kzrayvNlIqP PSxHIw2QTp0LERchAngBr UwKXK4YsF4XZY3zSGydK8 dzVznuekuzQ4o Oyc+M67fzS4dLVS3CLU2x kdjTEZrmkXtVA50KJ55Q0 RyPjwvdGFibGU+PGRpdiB suOtpLO6aBxVo k3vlz3VvMRgtF5QtHODmL ZftWhj6LOMyYEB9tWK9tM 8mCAJzEAnph8S4bYK3N8J txdYfkm3ip5do TCIeUDukV00poPHlj7C4U VOtzNT7MWMypDrnIsBwsI 93Oyc+QDYlfYtqc4UvDbt or9mxe8upkZd7 ZeXzSHTgzeYlqIhvMHV1j 1NkDz98B61jSReaLDJjUD AbCHEtKYAleTvwqj2fiM7 wIi8+PGNvbCB3 tZX5uJ0tRYLxDgF2JVbmZ 246AzDgwKVeLxppe6gyt9 ehyMm2UcDlUBMllwOavPq fVJL1z9FdQr47 V20jZKjvPWAbZMTkWSSyN DHdkPgpwd6wcV4fZf1+PC 6fg5eojw79xJ40hBX+PHR gRFC7aEqyVXac MGMthZ3vTUztOoJ3XWEgX nMbsS75jHMrQJwzGf4tqU eooTbgVD7uSMFaesvfk24 8TxTix1jzDGXy sSHnOKkuPYL4N85lj4N8P PQxAFWuDFM1fOC5hT9emU lnbjogbGVmdDsgdmVydGl nCMmfDYxxU467 IHRvcDsnPlBhdGllbnQgT uYmVNd8F5QyYzx4NQHjjI obIE1vrTJsQDaeRm4klHk foFooTH4sYQLb bqczo907RnKjz4tpXXRsp VGrECkdPZS0O31wq8Y9WF ClIPQcVIM5yGQ6jN9xaAm nbjogbGVmdDsg jpNdkBfwBCpjFCorI813I HRvcDsnPkJpcnRoIERhdG U0RL69YD76gJNuv6J2gEJ 2I0LjZHJhqekw sxpqzKF3JUSiVWChaI19F c8joSphHn8rCJYcSFF9IT BhlEKdU6CohP7xEwJwQER tXECgC3BioFJl VEdkO640WHkgFnG0GPKuj kWzK3TnPBQkrPpyByV4f9 Z0Wi4MW7I6UU50SZ70qCJ gm5P9xKJ2E1Ts BPRbfgjcvrtykAO1OIAwP KHrmV21Jh4xvOxuUm7jRN VdMKZ0AZJelNZrU8GlgY0 yOiAjMDAwMDAw Z1HyoZCvRExpV454KRwfN yV8DJFlqdLmO0GwTXEwnO rxEhZ7e9D8Lf9BERj6BF9 2BK75rFDlg4F9 tAP7L4QoDSHlqoqeawfxl ZW4EDTfHPZugF47Wj0pwI meIl2xLJFsRMK9LPJttBA kW3XsvU6oFuBt LDDhXJYxD6VvjRUrDJiwZ 392QLefRvZ0ACNguxSgO2 IdWFOlgFcxVaQ3k3H5Vb6 BIWPmMU80ZIR3 hVP3EP16GT45G1AiQeipe GFibGU+PHRhYmxlIHdpZH RoPScxMDAlJyBzdHlsZT0 kNc9zXSKiQKDs uVdkkVVdLxTdx3cdKYGlF IqhLD2rbMnvZ6DafYN2RM Gfd7j9Px92E13tF0GfwTP +LMXneXN2nKW5 jW9lHvXjLbK6GKqxL261X wLztJZgHpmtd7vqo1xfjA v1JbX5HGPetwVubDaiYAN 7v1CuEz94S33y IHdpZHRoPSIxNSUiIHZhb Gqhxd4noK1pRv6+PGNvbC U1tJK1hR4lYiNvPxO7AQb sA439KvLlhVRd Koghz9lvn2mpuAk3KkFvQ GDhnkAgsRejBMF7i6GpEa 16Q2TziSftd7HtIad5qc1 4rDAjm0M7oXT4 L9QgTHUnqmlglUUynBnkH L9hFQIdpfkwQAJwjW7qIH OkQ3a2YgNxQtP4EPtpS9R kxtQ4DLUolZSr MLvgABF6P70of4N1WAMzT AEhKUX7eWF6zM7bvBudtw ogbGVmdDsgdmVydGljYWw sDCvuW215VOOo kMyhLVImiB6dEOUzuOYcr QftGM5oHOTqybhwCc6DF5 ATYtuyQ1kSUq6OWBF6X3N oEbd7MPUgsXst QX2qpMSnLDetNp9okTogw WxfPN6jBJRwymnsZRXeeS 2yHMWiaACtpRrlWT4rQZR cdqtdq417JlWx VSW3YSBfdZMlZ5BseA4uA mKdUIYkTRVbH7XitPOqON fzE209OUbnBqM9DEAoaqC lG2UpGWUcdOqw UrU7l8J4Nd8mFO5aGw6pP KQqNG01AM25nOBxe7Y3iV F8I6HlWAIjtgstilnxpJV 6HVPjLPOqqR49 dFItZVbyPj9jl3U6e705W RMhBVJphH72Br7aaLyfZD HikQHLhW1yaexuy4epusm gIzAwMDAwMDt0 ANp1ZSUzuXksQcIiVEG5O nE1KVM3qXYbpH1hoLgori ycpI1zMxd+NjkgWWVhcnM 9L6TdSve5XWUe xRciOY3vfIHgCRzfWv9ab VvicUwgVT5tLFUqrhmjQU FicB2yLPNqpRLtyFhmOO6 dRYLqalzsw221 NbLcSRH9EYYtxCHrL1Bvo C3xUyFkXVTbEGRdV1DlbU FiSVwvN800MIdqToK7ANQ xagDpG0CcHMUw mIqtTkZ1w6V9Vq5YUK2be DI7M5BuLge3ZIDkmLexVT 6hqGVwHSfsNf4fpBkixHt nDO2vRBNghkyh WPVdbU1yXCRxrDCopEeuO J9dTITixwlgd354LeLzCC F7XYTxwKHoU0EaaJ7nLeW mCXOiHIJnN1Qh rBJvMQukG823VWryTqI4F QMsshNiO4TiVGIkjNlwHa Q3u6R1If9TBPQeWZOhtQU lXxQ1X5LmWbxl dHI+BP13DIReLI96jXYie EZqj9kdcSa2OrLsHDKnMR F7aUomBEepa7IuRACoY09 vjJIcu4R6WAOw hBzmvJKaDaFrzID0eV8uA Rcmvrdnt2xbldywKyebm9 jsio78bO22P49eYTgbJOQ oPSIzMCUiIHZh wHsfui6icH2rOd2+PGNvb RZ3bCV9nH2cOaLxAiJ8PQ bqY147EzAvmWTmMobrr8l rn4kokZg8FqYr DCKapbRigDwcIFI8d0YzD c71F34dJPcyQPJcHVMdFN PjPXRnlPlonf8cjP7mAs6 +FR8cg8mgky89 lL68kJW+YFHpXFG0pDzpG FngJFVljJ3xHZpkUaY7US ZfGoLzhP46gBKlTOjqRg5 ezYnmgFuwIL1c DDGethhlq144QvIqp2lbO KNspEKdUTedGNV1N51ro1 G0ACIdUFGrKUM3uSK1lU3 hbGlnbjogbGVm dDsgdmVydGljYWwtYWxpZ 189FPAxjStpFsQwjJUuG9 chdcMVYX5xHurpzAK+PHR uKXB3dMpsUOxm IUXwxK5qVTZbG4o8SpEjZ oW9YZyiD3EueoC0DRAbcM MjMLMwnYISlA8calejg7i vcjogIzAwMDAw JRq4YYx0GGCbtCxeLnBbZ XF4XfG8AWP3oLFguA7wcX yeqoehcL8vIzb+RklOOjw vdGQ+PHRkIHN0 wSmeCUfnKUYieR5aQAYhS 3y1UpCuVeH4XIhcD9Mrgf Z6XVPgqJLfNCLwsOOWiM7 yofcfd0mpyakr GgRfLNTxZPw9HCt7TYSfn XhzRxKaPBB5XxS0WWR7jX NotH6mxEzhmqpjsX1wUjr +TVJOOjwvdGQ+ EWQfMJA0mIheVOxpYSNqy X1cYFBoL0v5BrBcEnM7NF bxW2LfrpP2LEMjmLCvOAG xnVXNxY7duunn z6uevzomSzXoCMSvATa2K Ny0BRZxzOcyNsRoWTZ3Dh B5NHR9cKEdmD7ikFrjptx bdM1oAmr+UGF5 IVB7UP10UJ90U4EvRtfyd GFibGU+PHRhYmxlIHdpZH RoPScxMDAlJyBzdHlsZT0 xOa9lIAUbRKFw bGxh (more content not included)... Normal [facility] Consent for Procedure/Surger yon 12-16-2020 Consent for Procedure/Surgery [id number] #1.00CD:127 Normal [facility] Formson 12-16-2020 Forms [id number]#1. 00CD:127 Normal [facility] Lab Reportson 12-16-2020 Lab Reports [id number]#1. 00CD:127 Normal [facility] Physician Referralon 021 Physician Referral [id number]#1 .00CD:127 Normal [facility] RAD - MISCon 12-16-2020 RAD - MISC [id number] #1.00CD:127 [facility] RAD - Ultrasound Reporton RAD - Ultrasound Report [id number] .[id number]:127 Normal [facility] Ambulatory Clinical Summaryo n 12-15-2020 Ambulatory Clinical Summary {63-40-80-d6-44-dc-4c -32-p9-10-d7-21-52-c3 -f8-10}CD:[id number] Normal [facility] Patient Educationon 12-16-19 21 Patient Education [...] these instructions at home: Medicines ? Take cwhl-seu-qqgvilf and prescription medicines only as told by [...] the blood stops without treatment. ? Take ruxh-kfl-wvksgup and prescription medicines only as told by your health care provider. ? Drink enough fluid to keep your urine clear or pale yellow. This information is not intended to replace advice given to you by your health care provider. Make sure you discuss any questions you have with your health care provider. Document Released: 06/19/2006 Document Revised: 11/13/2019 Document Reviewed: 07/22/2017 [employer] Patient Education ? 2019 [employer] [facility] Urology Office/Clinic Noteon 12-15-2020 Urology Office/Clinic [...] The Urethra was dilated to: _18- 30 Citizen Of [place] with sounds. Specimens Removed: None Removal: Cystoscope [...] [facility] [address], [place] [address] [phone] Additional Instructions: f/u PRN Patient Education Hematuria, [...] 50,000 intl units (1.25 mg) oral capsule, 15894 International_Unit= 1 cap(s), Monday Zioptan 0.0015% ophthalmic solution Allergies erythromycin (Anaphylactic reaction) penicillin (Hives) Social History Alco (more content not included)... Normal [facility] Comment on above: Result Comment: Elec tronically Signed By: CHER VIGIL, Marcos Abreu\.br\Date and Time Signed: 12/15/20 15:58 EDT\.br\Electronically Co-Signed By: Donna Hartley\.br\Date and Time Co-Signed: 12/15/20 15:56 EDT Reminderson 12-14-2020 Reminders - From: Augusta Singh To: [facility] - Clinical; Sent: 12/11/2020 13:29:41 EDT Show up: 12/14/2020 13:29:00 EDT Subject: Urine culture Reminder/Recall Urine Culture PRW reviewed positive culture. [facility] C Urineon 12-13-2020 Bacteria identified Cx [...] Locations R1: This test was performed at: [facility], [address] [place] [address], [id number] , , [facility] Comment on above: Performed By: #### 2 [id number] ####[id number] [place] [address] Ambulatory Clinical Summaryo n 12-11-2020 Ambulatory Clinical Summary {54-56-4o-e0-16-cd-44 -c7-2s-2q-c1-ff-d3-6c -b8-cc}CD:[id number] Normal [facility] Ambulatory Clinical Summary {52-9d-td-01-34-83-4d -5u-st-75-7f-5d-8d-13 -29-0f}CD:[id number] Normal [facility] Ambulatory Clinical Summary {4g-2d-9n-78-2a-0b-46 -1l-54-95-04-9a-2b-c5 -e6-1f}CD:[id number] Normal [facility] Patient Educationon 12-12-19 Patient Education Urology [...] these instructions at home: Medicines ? Take echb-vty-pfiskvs and prescription medicines only as told by [...] the blood stops without treatment. ? Take ceqa-fqi-ixlxsvz and prescription medicines only as told by [...] Reviewed: 07/22/2017 [employer] Patient Education ? 2019 [employer] 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 Mary Grace due to Hematuria. Pt states that since the End of October she has been feeling a slight squeeze, no pain associated with this. Pt had a Renal US done at [facility]. Pt states that she has a [...] Information CHER VIGIL, Marcos Abreu, [address] [place] [address]- [phone] Additional Instructions: Patient Education Hematuria, Adult I, [...] Tab amLOD (more content not included)... Normal [facility] Comment on above: Result Comment: Elec tronically Signed By: CHER VIGIL, Marcos Abreu\.br\Date and Time Signed: 12/11/20 11:17 EDT\.br\Electronically Co-Signed By: Regla Pyle MA\.br\Date and Time Co-Signed: 12/11/20 11:12 EDT Lab Reportson 11-16-2020 Lab Reports [id number]#1 .00CD:127 [facility] Lab Reports [id number]#1 .00CD:127 [facility] RAD - Ultrasound Reporton RAD - Ultrasound Report [id number]#1 .00CD:127 [facility] IntraOperative Documentson 07-12-2019 IntraOperative Documents [id number]# 1.00CD:127 [facility] Message from Medicareon Message from Medicare [id number]#1.0 0CD:127 [facility] Coding Summary.on 05-06-2020 Coding Summary. CODING DATE: 05/06/2020 FINAL [facility] STATUS: Home (Routine DC) PAYOR: Medicare [...] PROC APC STAT DESCRIPTION DOCTOR NAME DATE 40507 1578 J1 Arthroscopy, knee, David Talamantes DO 05/01/2020 surgical; with meniscectomy (medial OR lateral, including any meniscal shaving) including debridement/shaving of articular cartilage (chondroplasty), same or separate compartment(s), when performed LT Left side (used to identify procedures performed on the left side of the body) 22560 Anesthesia for open or Aldridge Gurmeet Gomes [...] Bowers Revised Date Saved: 05/06/2020 11:55 am [facility] Insurance Correspondence Off iceon 05-05-2020 Insurance Correspondence Office [id number]# 1.00CD:127 Normal [facility] Main OR Intraoperative Recor don 05-05-2020 Main OR Intraoperative Record IntraOp Document Type FT Summary Primary Physician: David Talamantes DO Finalized Date/Time: 05/05/20 14:09:46 Pt. Name: CLAUDIA ESTRELLA/Sex: 1950 Female Med Rec #: [id number] Physician: David Talamantes DO Financial #: [id number] Pt. Type: O Room/Bed: N217/01 Admit/Disch: 05/01/20 [...] Role Performed Anesthesiologist of Surgeon - Primary Central Sterile Tech - Primary Record Time In 05/01/20 14:26:00 05/01/20 14:39:00 05/01/20 14:26:00 Time Out 05/01/20 15:04:00 05/01/20 15:04:00 05/01/20 15:04:00 Procedure KNEE ARTHROSCOPY(Left) KNEE ARTHROSCOPY(Left) KNEE ARTHROSCOPY(Left) Comments Last Modified By: Edgar RN, Viky Hernández RN, Viky Hernández RN, Viky Mcdonough 05/01/20 15:04:35 05/01/20 15:04:35 05/01/20 15:04:35 Entry 4 Entry 5 Entry 6 Case Attendee Maxim RN, Augusta Castro METAL MOLDER, Leatha Flowers RN, CNOR, Cee Role Performed Central Sterile Tech - Primary Scrub - Primary Central Sterile Tech - Relief Time In 05/01/20 14:26:00 05/01/20 [...] and tissue Entry 1 Skin Integrity Intact, [place], Warm, and Skin Abnormality No Dry Outcomes Met? Yes Last Modified By: Viky Hernández RN 05/01/20 14:46:48 Post-Care Text: The patient is free from signs and symptoms of injury caused by extraneous objects Patient Positioning FT Pre-Care Text: Identifies physical alterations that require additional precautions for procedure-specific positioning, verifies presence of prosthetics or corrective (more content not included)... Normal [facility] Progress Note-Physicianon Progress Note-Physician Patient: CLAUDIA [...] volume (mL): 1,000, 68.3 kg, 1.64, m2 [place] 5/325 Tab: 1 tab(s), Tab, Oral, q4hr [...] Problems DM kidney disease / SNOMED CT 497367174 / Confirmed PVD (peripheral vascular disease) / SNOMED CT 1572844582 / Confirmed MMT (medial meniscus tear) / SNOMED CT 427600730 / Confirmed Resolved: Ocular herpes zoster / SNOMED CT 501489745 Resolved: HTN (hypertension) / SNOMED CT 8219241357 Canceled: Diabetes / SNOMED CT 591504188 Histories Past Medical History: No active or resolved past medical history items have been selected or recorded. Family History: No family history items have been selected or recorded. Procedure history: Right eye cataract extraction and insertion of intraocular lens (3741877867) on 11/19/2019 at 69 Years. Cataract extraction and insertion of intraocular lens (2400698352) on 11/06/2019 at 69 Years. Comments: 11/06/2019 14:13 EDT - Fabian WU, Loreto Abreu Left Appendectomy (248555428). section x2 (99433499). Cholecystectomy (42687437). Anesthesia for laparoscopic procedure on lower abdomen (62073099). Cheilectomy of tarsal foot (7105933543). Social History Social & Psychosocial Habits Alcohol [...] results Radiology results ECG interpretation Condition Plan [place] [employer] (ASA) physical status classification: Class III. Anesthetic Preoperative (more content not included)... Normal [facility] Comment on above: Result Comment: Elec [...] Problems DM kidney disease / SNOMED CT 752051853 / Confirmed PVD (peripheral vascular disease) / SNOMED CT 0608444009 / Confirmed MMT (medial meniscus tear) / SNOMED CT 915276288 / Confirmed Resolved: Ocular herpes zoster / SNOMED CT 419975657 Resolved: HTN (hypertension) / SNOMED CT 9250296107 Canceled: Diabetes / SNOMED CT 428616455 Physical Examination Vital Signs 05/01/2020 16:58 EDT [...] F/U Plan Transfer/ Discharge: Condition stable. Normal [facility] Comment on above: Result Comment: Elec tronically Signed By: Gurmeet Aldridge Jr, DO\Date and Time Signed: 05/05/20 08:22 EST Capillary Glucose POCon Glucose [Mass/Vol] 149 mg/dL High 55-99 [facility] Comment on above: Result Comment: Monty MEDEIROS Performed By: #### 2 [id number] #### [facility] Laboratory [address] [place] [address] Glucose [Mass/Vol] 127 mg/dL High 55-99 [facility] Comment on above: Result Comment: Monty MEDEIROS Performed By: #### 2 [id number] #### [facility] [address] [place] [address] Consent for Anesthesiaon Consent for Anesthesia [id number]#1 .00CD:127 Normal [facility] Discharge Instructionson Discharge Instructions [id number]# 1.00CD:127 Normal [facility] Inpatient Clinical Summaryon 05-04-2020 Inpatient Clinical Summary [address] [address] Clinical Summary Person Information: Name: CLAUDIA ESTRELLA Age: 70 Years : 1950 Sex: Female PCP: JOHN PERDOMO DO Marital Status: Race: White Ethnicity: Non- or Language: Indonesian Visit Id: Visit Reason: LEFT KNEE BONE BRUISE, MEDIAL MENISCUS TEAR, EFFUSION Speciality: Acuity: Enc Type: Observation Med Service: Surgery Arrival: 05/01/2020 11:43:14 Discharge: Dispo Type: Address: [address] [place] [address] Provider Notes: Diagnosis: 1:Other chest pain; 2:Hypertension; [...] up: With: Address: When: Follow up with Tool Design Engineer Within 1 week With: Address: When: JOHN PERDOMO [facility] [place] [address] Business (1) With: Address: When: David Talamantes [address] [phone] Business (1) Comments: Keep scheduled appointment Patient Education Information: Post Op Patient Instructions - FT (Custom); Knee Cryocuff Patient Instructions - FT (Custom); Talamantes - Knee Arthroscopy (Custom) (CUSTOM) Normal [facility] Inpatient Patient Summaryon 05-04-2020 Inpatient Patient Summary [address] [address] Patient Discharge Instructions PERSON INFORMATION [...] up: With: Address: When: Follow up with Tool Design Engineer Within 1 week With: Address: When: JOHN BUSTAMANTERING [address] [place] [address] Business (1) With: Address: When: David Talamantes [address] [place] [address] Business (1) Comments: Keep scheduled appointment [...] DURING YOUR HOSPITAL STAY New Medications [id number], [address], [place] [id number], [phone] atorvastatin (Lipitor 20 mg Tab) 1 Tablets [...] TIMES. amlodipine (amLO (more content not included)... [facility] Interdisciplinary Note - PTo n 05-04-2020 Interdisciplinary Note - PT PT Screen performed. Pt was able to stand and ambulate throughout room without difficulty and without an AD. Pt also demos appropriate ROM to knee. Would recommend to f/u with Ortho to determine if therapy is needed in the future, but no PT needed at this time [facility] IntraOperative Documentson 1 07-04-2019 IntraOperative Documents [id number]#1 .00CD:127 [facility] IntraOperative Documents [id number]#1 .00CD:127 [facility] Message from Medicareon 110 Message from Medicare [id number]# 1.00CD:127 Normal [facility] Monitor Recordon 05-04-2020 Monitor Record [id number]# 1.00CD:127 Normal [facility] Monitor Record [id number]# 1.00CD:127 Normal [facility] Monitor Record [id number]# 1.00CD:127 Normal [facility] Patient Education - Texton 1 07-04-2019 Patient Education - Text [place], [place] [facility] DISCHARGE INSTRUCTIONS: KNEE ARTHROSCOPY [...] appointment. David Talamantes, DO [facility] [address] [place], [place] [address] Reviewed: 10-08 [facility] Preoperative Documentson Preoperative Documents [id number]#1 .00CD:127 Normal [facility] Preoperative Documents [id number]#1 .00CD:127 Normal [facility] Prescriptions/Work Noteson 1 07-04-2019 Prescriptions/Work Notes [id number]#1 .00CD:127 Normal [facility] Capillary Glucose POCon Glucose [Mass/Vol] 183 mg/dL High 55-99 [facility] Comment on above: Performed By: #### 2 [id number] #### [facility] Laboratory [address] [place] [address] Glucose [Mass/Vol] 155 mg/dL High 55-99 [facility] Comment on above: Performed By: #### 2 [id number] #### [facility] [address] [place] [address] Glucose [Mass/Vol] 113 mg/dL High 55-99 [facility] Comment on above: Result Comment: Monty pelayo RN/ Performed By: #### 2 [id number] ####[facility] [address] [place] [address] Glucose [Mass/Vol] 112 mg/dL High 55-99 [facility] Comment on above: Performed By: #### 2 [id number] #### [facility] [address] [place] [address] Glucose [Mass/Vol] 85 mg/dL Normal 55-99 [facility] Comment on above: Result Comment: Monty pelayo RN/ Performed By: #### 2 [id number] #### [facility] [address] [place] [address] Glucose [Mass/Vol] 59 mg/dL Normal 55-99 [facility] Comment on above: Result Comment: Monty pelayo RN/ Performed By: #### 2 [id number] #### [facility] [address] [place] [address] Consultation Noteon 05-03-20 Consultation Note HOSPITAL REGULATIONS [...] left knee and elevate. Eh Carter DO [employer] Dictated: 05/02/2020 #[id number] Typed: 05/02/2020 #[id number] cc: DO David Nieto D.O. Normal [facility] Comment on above: Result Comment: Elec tronically Signed By: Eh Carter DO\.br\Date and Time Signed: 05/03/20 10:27 EST Monitor Recordon 05-03-2020 Monitor Record [id number]# 1.00CD:127 Normal [facility] Monitor Record [id number]# 1.00CD:127 Normal [facility] Operative Reporton 0 Operative Report Date [...] The patient's condition satisfactory David Talamantes D.O. [employer] Dictated: 05/01/2020 #[id number] Typed: 05/01/2020 #[id number] cc: Randa Lanier D.O. [facility] Comment on above: Result Comment: Elec [...] mg/dL High (05/03/20 12:18:00) POC Device SN: [id number] (05/03/20 12:18:00) POC Username: JOSESITO BROWN (05/03/20 [...] 0.4 mg= 1 tab(s), SubLingual, q5min, PRN [place] 5/325 Tab, 1 tab(s), Oral, q4hr, PRN [...] ophthalmic emulsion, 1 drop(s), Eye-Both, BID Normal [facility] Comment on above: Result Comment: Elec [...] mg/dL High (05/03/20 07:32:00) POC Device SN: [id number] (05/03/20 07:32:00) POC Username: POC Username (05/03/20 [...] to obtain her records from her primary telecom field technician once 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 Continue [...] PRN L (more content not included)... Normal [facility] Comment on above: Result Comment: Elec tronically Signed By: Eleuterio VIGIL, John Marin.br\Date and Time Signed: 05/03/20 07:45 EST Capillary Glucose POCon 04-04 Glucose [Mass/Vol] 212 mg/dL High 55-99 [facility] Comment on above: Performed By: #### 2 [id number] #### [facility] [address] [place] [address] Glucose [Mass/Vol] 138 mg/dL High 55-99 [facility] Comment on above: Performed By: #### 2 [id number] #### [facility] [address] [place] [address] Glucose [Mass/Vol] 139 mg/dL High 55-99 [facility] Comment on above: Performed By: #### 2 [id number] #### [facility] [address] [place] [address] Glucose [Mass/Vol] 105 mg/dL High 55-99 [facility] Comment on above: Performed By: #### 2 [id number] #### [facility] [address] [place] [address] Glucose [Mass/Vol] 233 mg/dL High 55-99 [facility] Comment on above: Result Comment: Monty pelayo RN/ Performed By: #### 2 [id number] ####[facility] [address] [place] [address] Lipid Panelon 05-02-2020 Cholesterol [Mass/Vol] 160 mg/dL Normal 120-200 [facility] Comment on above: Performed By: #### 2 [id number] #### [facility] [address] [place] [address] Cholesterol in HDL [Mass/Vol] 49 mg/dL Invalid Interpretation Code [facility] Comment on above: Result Comment: HDL > or equal to 60 mg/dL: Low cardiovascular risk HDL < 40 mg/dL : High cardiovascular risk Performed By: #### 2 [id number] #### [facility] [address] [place] [address] Cholesterol in LDL [Mass/Vol] 98 mg/dL Normal <=129 [facility] Comment on above: Performed By: #### 2 [id number] #### [facility] [address] [place] [address] Cholesterol in VLDL [Mass/Vol] 12 mg/dL Normal 7-40 [facility] Comment on above: Performed By: #### 2 [id number] #### [facility] [address] [place] [address] Triglyceride [Mass/Vol] 61 mg/dL Normal <=149 [facility] Comment on above: Performed By: #### 2 [id number] #### [facility] [address] [place] [address] Monitor Recordon 05-02-2020 Monitor Record [id number]# 1.00CD:127 Normal [facility] Progress Note-Physicianon Progress Note-Physician Assessment/Plan 1. [...] (05/01/20 18:27:00) (more content not included)... Normal [facility] Comment on above: Result Comment: Elec tronically Signed By: JUN VIGIL, Nhung\.br\Date and Time Signed: 05/02/20 10:00 EDT Troponin 3 Hr.on 05-02-2020 Troponin I.cardiac [Mass/Vol] 3.60 pg/mL Low 10.10-27.10 [facility] Comment on above: Result Comment: The 95% CI (Confidence Interval) PPV (Positive Predictive Value) for myocardial infarction in females is 38 pg/mL, in males 51 pg/mL. The results should be used in conjunction with clinical conditions of myocardial infarction. (Access High Sensitivity Troponin I Instructions For Use, Wilfrido Jose, January 2018) Performed By: #### 2 [id number] #### [facility] [address] [place] [address] Troponin 6 Hr.on 05-02-2020 Troponin I.cardiac [Mass/Vol] 3.90 pg/mL Low 10.10-27.10 [facility] Comment on above: Result Comment: The 95% CI (Confidence Interval) PPV (Positive Predictive Value) for myocardial infarction in females is 38 pg/mL, in males 51 pg/mL. The results should be used in conjunction with clinical conditions of myocardial infarction. (Access High Sensitivity Troponin I Instructions For Use, [employer], January 2018) Performed By: #### 2 [id number] #### [facility] [address] [place] [address] Troponin 9 Hr.on 05-02-2020 Troponin I.cardiac [Mass/Vol] 5.10 pg/mL Low 10.10-27.10 [facility] Comment on above: Result Comment: The 95% CI (Confidence Interval) PPV (Positive Predictive Value) for myocardial infarction in females is 38 pg/mL, in males 51 pg/mL. The results should be used in conjunction with clinical conditions of myocardial infarction. (Access High Sensitivity Troponin I Instructions For Use, [employer], January 2018) Performed By: #### 2 [id number] #### [facility] [address] [place] [address] US Carotid Duplex Bilateralo n 05-02-2020 US [...] ECA (cm/sec): 199/15 Vert. Antegrade Yes Normal [facility] Auto Diffon 05-01-2020 Basophils/100 WBC (Bld) 0.4 % Normal 0.0-2.0 [facility] Comment on above: Order Comment: Order Added by Discern Expert. Performed By: #### 2 895411, 00084357, 8838495, 2990230 #### [facility] [address] [place] [address] Basophils/Leukocytes Auto (Bld) [Pure # fraction] 0.0 E9/L Normal 0.0-0.2 [facility] Comment on above: Order Comment: Order Added by Discern Expert. Performed By: #### 2 027894, 09872121, 4723410, 9280122 #### [facility] [address] [place] [address] Eosinophils/100 WBC (Bld) 1.2 % Normal 0.0-8.0 [facility] Comment on above: Order Comment: Order Added by Discern Expert. Performed By: #### 2 433691, 27505101, 4376135, 5238775 #### [facility] [address] [place] [address] Eosinophils/Leukocyte s Auto (Bld) [Pure # fraction] 0.1 E9/L Normal 0.0-0.5 [facility] Comment on above: Order Comment: Order Added by Discern Expert. Performed By: #### 2 214769, 80387037, 5075516, 3278022 #### [facility] [address] [place] [address] Lymphocytes/100 WBC (Bld) 9.7 % Low 14.0-50.0 [facility] Comment on above: Order Comment: Order Added by Son Expert. Performed By: #### 2 634502, 09964489, 7967411, 4609263 #### [facility] [address] [place] [address] Lymphocytes/Leukocyte s Auto (Bld) [Pure # fraction] 1.0 E9/L Normal 1.0-4.0 [facility] Comment on above: Order Comment: Order Added by Son Expert. Performed By: #### 2 138038, 67135881, 0607147, 9844471 #### [facility] [address] [place] [address] Monocytes/100 WBC (Bld) 4.2 % Normal 4.0-14.0 [facility] Comment on above: Order Comment: Order Added by Son Expert. Performed By: #### 2 857377, 28385205, 4564057, 5004329 #### [facility] [address] [place] [address] Monocytes/Leukocytes Auto (Bld) [Pure # fraction] 0.4 E9/L Normal 0.2-1.0 [facility] Comment on above: Order Comment: Order Added by Son Expert. Performed By: #### 2 359531, 05687786, 0315194, 2474838 #### [facility] [address] [place] [address] Neutrophils/100 WBC (Bld) 84.5 % High 36.0-75.0 [facility] Comment on above: Order Comment: Order Added by Discern Expert. Performed By: #### 2 521110, 29422956, 4750956, 8016878 #### [facility] [address] [place] [address] Neutrophils/Leukocyte s Auto (Bld) [Pure # fraction] 8.9 E9/L High 2.0-7.5 [facility] Comment on above: Order Comment: Order Added by Discern Expert. Performed By: #### 2 727892, 36617309, 5792076, 3198104 #### [facility] [address] [place] [address] BMPon 05-01-2020 Calcium [Mass/Vol] 8.9 mg/dL Normal 8.9-11.1 [facility] Comment on above: Performed By: #### 2 914587, 98591787, 0446756, 4908087 #### [facility] [address] [place] [address] Anion gap [Moles/Vol] 10 mmol/L Normal 6-16 [facility] Comment on above: Performed By: #### 2 656036, 65217534, 2153996, 1063084 #### [facility] [address] [place] [address] Chloride [Moles/Vol] 103 mmol/L Normal 101-111 [facility] Comment on above: Performed By: #### 2 668579, 46777264, 6026225, 9037709 #### [facility] [address] [place] [address] CO2 [Moles/Vol] 24 mmol/L Normal 21-31 [facility] Comment on above: Performed By: #### 2 378396, 67152302, 7564338, 3465016 #### [facility] [address] [place] [address] Creatinine [Mass/Vol] 1.6 mg/dL High 0.5-1.3 [facility] Comment on above: Performed By: #### 2 262115, 72909780, 0296344, 3481851 #### [facility] [address] [place] [address] Glucose [Mass/Vol] 167 mg/dL Normal 55-199 [facility] Comment on above: Result Comment: If t his glucose result represents a fasting glucose, interpretation should refer to the following reference range: 55-99 mg/dL Performed By: #### 2 322497, 01009998, 2068101, 7452124 #### [facility] [address] [place] [address] Potassium [Moles/Vol] 3.9 mmol/L Normal 3.5-5.3 [facility] Comment on above: Performed By: #### 2 706057, 95612494, 8062872, 5872018 #### [facility] [address] [place] [address] Sodium [Moles/Vol] 133 mmol/L Low 135-145 [facility] Comment on above: Performed By: #### 2 399157, 36633937, 8367317, 2900222 #### [facility] [address] [place] [address] Urea nitrogen [Mass/Vol] 34 mg/dL High 5-21 [facility] Comment on above: Performed By: #### 2 397580, 38213014, 6090976, 4576587 #### [facility] [address] [place] [address] Urea nitrogen/Creatinine [Mass ratio] 21 No Units High 10-20 [facility] Comment on above: Performed By: #### 2 364292, 46199510, 9938104, 0232680 #### [facility] [address] [place] [address] CBC w/ Auto Diffon 10-30-202 0 Erythrocyte distribution width (RBC) [Ratio] 13.0 % Normal 10.9-14.2 [facility] Comment on above: Performed By: #### 2 210694, 38496411, 7705118, 5480802 #### [facility] [address] [place] [address] Hematocrit (Bld) [Volume fraction] 32.4 % Low 34.0-46.0 [facility] Comment on above: Performed By: #### 2 287230, 99302670, 8183668, 8406283 #### [facility] [address] [place] [address] Hemoglobin (Bld) [Mass/Vol] 11.2 g/dL Low 12.0-16.0 [facility] Comment on above: Performed By: #### 2 157875, 03467709, 8297065, 7127074 #### [facility] [address] [place] [address] MCH (RBC) [Entitic mass] 29.6 pg Normal 27.0-34.0 [facility] Comment on above: Performed By: #### 2 691593, 36409019, 4676075, 1321002 #### [facility] [address] [place] [address] MCHC (RBC) [Mass/Vol] 34.6 g/dL Normal 31.4-36.0 [facility] Comment on above: Performed By: #### 2 987294, 04210359, 7317864, 2913154 #### [facility] [address] [place] [address] MCV (RBC) [Entitic vol] 85.5 fL Normal 80.0-100.0 [facility] Comment on above: Performed By: #### 2 078941, 22671808, 1076910, 6154726 #### [facility] Laboratory [address] [place] [address] Platelet mean volume (Bld) [Entitic vol] 8.4 fL Normal 6.4-10.8 [facility] Comment on above: Performed By: #### 2 641509, [id number], 0557858, 1383814 #### [facility] Laboratory [address] [place] [address] Platelets (Bld) [#/Vol] 242.0 E9/L Normal 150.0-500.0 [facility] Comment on above: Performed By: #### 2 640753, [id number], 7151986, 8521350 #### [facility] Laboratory [address] [place] [address] RBC (Bld) [#/Vol] 3.8 E12/L Low 4.3-5.9 [facility] Comment on above: Performed By: #### 2 478710, 53842316, 4767860, 5643407 #### [facility] Laboratory [address] [place] [address] WBC corrected for nucl RBC Auto (Bld) [#/Vol] 10.5 E9/L Normal 4.0-11.0 [facility] Comment on above: Performed By: #### 2 193510, 48005957, 4739764, 4030368 #### [facility] Laboratory [address] [place] [address] Capillary Glucose POCon 04-04 Glucose [Mass/Vol] 84 mg/dL Normal 55-99 [facility] Comment on above: Result Comment: Repe at Test Performed By: #### 2 [id number] #### [facility] Laboratory [address] [place] [address] Glucose [Mass/Vol] 88 mg/dL Normal 55-99 [facility] Comment on above: Result Comment: Repe at Test Performed By: #### 2 [id number] #### [facility] Laboratory [address] [place] [address] Coding Summary.on 05-01-2020 Coding Summary. CODING DATE: 05/01/2020 FINAL [facility] STATUS: Home (Routine DC) PAYOR: Medicare [...] [place] CphT Date Saved: 05/01/2020 08:36 am [facility] Coding Summary. CODING DATE: 04/25/2020 FINAL [facility] STATUS: Home (Routine DC) PAYOR: Medicare [...] [place] CphT Date Saved: 04/25/2020 04:17 pm [facility] Consent for Treatmenton 04-04 Consent for Treatment [id number]#1 .00CD:127 [facility] Consent for Treatment [id number]#1 .00CD:127 [facility] H&P Updateon 05-01-2020 H&P Update [id number]#1 .00CD:127 [facility] Main OR PACU I Recordon 04-04 Main OR PACU I Record PACU Phase I Docum ent Type FT Summary Primary Physician: David Talamantes DO Finalized Date/Time: 05/01/20 18:04:55 Pt. Name: CLAUDIA ESTRELLA Katerin Ramirez/Sex: 1950 Female Med Rec #: [id number] Physician: David Talamantes DO Financial #: [id number] Pt. Type: A Room/Bed: [place] [address] Admit/Disch: 05/01/20 11:43:14 - Institution: Case Times [...] By: Ju Bates RN 05/01/20 18:04 Normal [facility] Main OR PACU II Recordon Main OR PACU II Record PACU Phase II Document Type FT Summary Primary Physician: David Talamantes DO Finalized Date/Time: 05/01/20 20:09:08 Pt. Name: CLAUDIA ESTRELLA/Sex: 1950 Female Med Rec #: [id number] Physician: David Talamantes DO Financial #: [id number] Pt. Type: O Room/Bed: [place] [address] Admit/Disch: 05/01/20 11:43:14 - Institution: Case Times [...] By: Yessy Curran RN 05/01/20 20:09 Normal [facility] Main OR Preoperative Recordo n 05-01-2020 Main OR Preoperative Record PreOp Document Type FT Summary Primary Physician: David Talamantes DO Finalized Date/Time: 05/01/20 14:45:06 Pt. Name: CLAUDIA ESTRELLA/Sex: 1950 Female Med Rec #: [id number] Physician: David Talamantes DO Financial #: [id number] Pt. Type: A Room/Bed: [place] [address] Admit/Disch: 05/01/20 11:43:14 - Institution: Case Times [...] Signed By: Viky Hernández RN 05/01/20 14:45 [facility] Monitor Recordon 05-01-2020 Monitor Record [id number] 0 [id number]# 1.00CD:127 Normal [facility] Monitor Record [id number]# 1.00CD:127 Normal [facility] Outside Radiologyon 05-01-20 20 Outside Radiology [id number]#1 .00CD:127 Normal [facility] Outside Recordson 05-01-2020 Outside Records [id number]#1 .00CD:127 Normal [facility] Progress Note-Nurseon 2019 Progress Note-Nurse At [...] voicemail. 1835--This nurse spoke with Dr. Carter (nurse transitional physician), informed Dr. Carter reason for admission and patient's room number. Dr. Aldridge at bedside at 1705--Physician looked at patient EKG strip that was printed. Normal [facility] Progress Note-Nurse 1528: pt. medicated with [...] dtr. also at bedside and updated. Normal [facility] Troponin 0 Hr.on 05-01-2020 Troponin I.cardiac [Mass/Vol] 4.10 pg/mL Low 10.10-27.10 [facility] Comment on above: Result Comment: The 95% CI (Confidence Interval) PPV (Positive Predictive Value) for myocardial infarction in females is 38 pg/mL, in males 51 pg/mL. The results should be used in conjunction with clinical conditions of myocardial infarction. (Access High Sensitivity Troponin I Instructions For Use, Wilfrido Portis, January 2018) Performed By: #### 2 [id number] #### [facility] Laboratory [address] [place] [address] eGFRon 05-01-2020 GFR/1.73 sq M.predicted among blacks MDRD (S/P/Bld) [Vol rate/Area] 39 mL/min/1.73 m2 Low >=59 [facility] Comment on above: Order Comment: Order added by Discern Expert. Result Comment: eGFR is race adjusted. AA=. Performed By: #### 2 325384, [id number], 2740395, 8370358 #### [facility] Laboratory [address] [place] [address] GFR/1.73 sq M.predicted among non-blacks MDRD (S/P/Bld) [Vol rate/Area] 32 mL/min/1.73 m2 Low >=59 [facility] Comment on above: Order Comment: Order added by Discern Expert. Result Comment: Classifying Machine Operator jayden kidney disease could be indicated at eGFR's of less than 60 mL/min/1.73m2. Kidney failure is indicated at less than 15 mL/min/1.73m2. Performed By: #### 2 699496, 27816444, 7566613, 4997405 #### [facility] Laboratory [address] [place] [address] Coding Summary.on 04-28-2020 Coding Summary. CODING DATE: 04/28/2020 FINAL [facility] DSC STATUS: Home (Routine DC) PAYOR: [...] CphT Date Saved: 04/28/2020 09:19 am Normal [facility] Outpatient Surgery Discharge Instructionon 04-28-2020 Outpatient Surgery Discharge Instruction [address] [address] Patient Discharge Instructions PERSON INFORMATION [...] Follow up: With: Address: When: David Talamantes [address] [place] [address] Business (1) Comments: Keep scheduled appointment Type Location Start [facility] Surgery [facility] 05/01/2020 2:15 PM 05/01/2020 2:55 PM Confirmed Pharmacy Information: Thank you for choosing [facility] HERE ARE THE MEDICATION CHANGES THAT [...] tab Oral Daily. PATIENT EDUCATION INFORMATION Instructions: [place], [place] [facility] DISCHARGE INSTRUCTIONS: KNEE ARTHROSCOPY [...] result of (more content not included)... Normal [facility] Consent for Procedure/Surger yon 04-27-2020 Consent for Procedure/Surgery [id number]# 1.00CD:127 Normal [facility] Outside Recordson 04-27-2020 Outside Records [id number]# 1.00CD:127 Normal [facility] Priority Order-Trina 2019 Priority Order-STAT Comment Invalid Interpretation Code [facility] Comment on above: Result Comment: Rece ived Performed at: [facility] [address] [place] [id number] MD Bladimir Briones Performed By: #### 2 [id number] #### [facility] Laboratory [address] [place] [address] SARS-CoV-2, NAAon 04-25-2020 SARS-CoV-2 (COVID-19) RNA JAYASHREE+probe Ql (Resp) Not detected Invalid Interpretation Code Not Detected [facility] Comment on above: Result Comment: This nucleic acid amplification test was developed and its performance characteristics determined by [employer]. Nucleic acid amplification tests include PCR and [...] detected) result in this assay. Performed at: [facility] [address] [place] [id number] MD Bladimir Briones Performed By: #### 2 [id number] #### [facility] Laboratory [address] [place] [address] XR Chest 2 Viewson 0 XR Chest [...] M.D. Transcribed by: LUDIN Technologist: RRB Normal [facility] BUNon 04-24-2020 Urea nitrogen [Mass/Vol] 36 mg/dL High 5-21 [facility] Comment on above: Performed By: #### 1 2840476, 0014805, 3711263, 7925886, 7896093, 9576357 ####[facility] [address] [place] [address] CBC w/Indiceson 04-24-2020 Erythrocyte distribution width (RBC) [Ratio] 13.0 % Normal 10.9-14.2 [facility] Comment on above: Performed By: #### 1 5969720, 4447935, 0643333, 3239034, 7297445, 3833590 ####[facility] [address] [place] [address] Hematocrit (Bld) [Volume fraction] 34.1 % Normal 34.0-46.0 [facility] Comment on above: Performed By: #### 1 7631773, 2065568, 1713115, 2032136, 4201794, 5855861 ####[facility] [address] [place] [address] Hemoglobin (Bld) [Mass/Vol] 11.6 g/dL Low 12.0-16.0 [facility] Comment on above: Performed By: #### 1 4830824, 1570754, 8948424, 8817379, 0484732, 1275247 ####[facility] [address] [place] [address] MCH (RBC) [Entitic mass] 29.5 pg Normal 27.0-34.0 [facility] Comment on above: Performed By: #### 1 6925878, 5816685, 5482563, 2651918, 5240772, 6027691 ####[facility] [address] [place] [address] MCHC (RBC) [Mass/Vol] 34.1 g/dL Normal 31.4-36.0 [facility] Comment on above: Performed By: #### 1 8235197, 8484857, 3184941, 5261639, 4653883, 5226199 ####[facility] [address] [place] [address] MCV (RBC) [Entitic vol] 86.5 fL Normal 80.0-100.0 [facility] Comment on above: Performed By: #### 1 2986886, 7129603, 2598162, 4697652, 3961086, 4068248 ####[facility] [address] [place] [address] Platelet mean volume (Bld) [Entitic vol] 9.4 fL Normal 6.4-10.8 [facility] Comment on above: Performed By: #### 1 3239979, 9515288, 2444964, 5467982, 6875558, 3724587 ####[address] [place] [address] Platelets (Bld) [#/Vol] 246.0 E9/L Normal 150.0-500.0 [facility] Comment on above: Performed By: #### 1 3581332, 8105143, 1261025, 1783675, 8693586, 3315654 ####[address] [place] [address] RBC (Bld) [#/Vol] 3.9 E12/L Low 4.3-5.9 [facility] Comment on above: Performed By: #### 1 8382435, 4688218, 1410770, 4622704, 1183017, 9182972 ####[address] [place] [address] WBC corrected for nucl RBC Auto (Bld) [#/Vol] 10.0 E9/L Normal 4.0-11.0 [facility] Comment on above: Performed By: #### 1 6092188, 4485741, 1574021, 7117677, 1591656, 9268247 ####[address] [place] [address] Consent for Treatmenton 04-03 Consent for Treatment [id number]#1 .00CD:127 Normal [facility] Creatinineon 04-24-2020 Creatinine [Mass/Vol] 1.6 mg/dL High 0.5-1.3 [facility] Comment on above: Performed By: #### 1 3220401, 5606200, 3085597, 2710592, 4306183, 7621175 ####[facility] [address] [place] [address] Glu Fastingon 04-24-2020 Glucose [Mass/Vol] 81 mg/dL Normal 55-99 [facility] Comment on above: Performed By: #### 1 7158081, 4597061, 8198170, 0638559, 4270640, 9262234 ####[facility] [address] [place] [address] Lyteson 04-24-2020 Anion gap [Moles/Vol] 13 mmol/L Normal 6-16 [facility] Comment on above: Performed By: #### 1 2866172, 5911094, 1963309, 0453471, 8587157, 2108594 ####[facility] [address] [place] [address] Chloride [Moles/Vol] 103 mmol/L Normal 101-111 [facility] Comment on above: Performed By: #### 1 9032309, 3721926, 6493319, 0274613, 3470418, 0425270 ####[facility] [address] [place] [address] CO2 [Moles/Vol] 26 mmol/L Normal 21-31 [facility] Comment on above: Performed By: #### 1 0513936, 8287754, 7169834, 6974880, 4950509, 1951484 ####[facility] [address] [place] [address] Potassium [Moles/Vol] 3.9 mmol/L Normal 3.5-5.3 [facility] Comment on above: Performed By: #### 1 0751361, 4225027, 7714882, 4436756, 4687694, 4709197 ####[facility] [address] [place] [address] Sodium [Moles/Vol] 138 mmol/L Normal 135-145 [facility] Comment on above: Performed By: #### 1 3110666, 2048946, 8043382, 1188860, 2990224, 5336971 ####[facility] [address] [place] [address] Physician Orderon 04-24-2020 Physician Order [id number]# 1.00CD:127 Normal [facility] eGFRon 04-24-2020 GFR/1.73 sq M.predicted among blacks MDRD (S/P/Bld) [Vol rate/Area] 39 mL/min/1.73 m2 Low >=59 [facility] Comment on above: Order Comment: Order added by Discern Expert. Result Comment: eGFR is race adjusted. AA=. Performed By: #### 1 7737710, 3904076, 8783417, 4536099, 3923052, 4406816 ####[facility] [address] [place] [address] GFR/1.73 sq M.predicted among non-blacks MDRD (S/P/Bld) [Vol rate/Area] 32 mL/min/1.73 m2 Low >=59 [facility] Comment on above: Order Comment: Order added by Discern Expert. Result Comment: Classifying Machine Operator jayden kidney disease could be indicated at eGFR's of less than 60 mL/min/1.73m2. Kidney failure is indicated at less than 15 mL/min/1.73m2. Performed By: #### 1 9985034, 0937647, 9665998, 8868923, 1922963, 6874580 ####[facility] [address] [place] [address] Physician Orderon 04-13-2020 Physician Order [id number]# 1.00CD:127 Normal [facility] Physician Orderon 04-10-2020 Physician Order [id number]# 1.00CD:127 Normal [facility] Vital Signs Date Time Vital Sign Value Performing Clinician Facility 05-30-2023 15:40-0500 Body height 147.32 cm [facility] Other [facility] Other 05-30-2023 15:40-0500 Body mass index (BMI) [Ratio] 26.92 kg/m2 [facility] Other [facility] Other 05-30-2023 15:40-0500 Body temperature 97 [degF] [facility] Other [facility] Other 05-30-2023 15:40-0500 Body weight 58.42 kg Geneva Mary Grace Other [facility] Other 05-30-2023 15:40-0500 Diastolic blood pressure 71 mm[Hg] Geneva Mary Grace Other [facility] Other 05-30-2023 15:40-0500 Respiratory rate 18 /min Geneva Mary Grace Other [facility] Other 05-30-2023 15:40-0500 SaO2% (BldA) [Mass fraction] 97 % Geneva Mary Grace Other [facility] Other 05-30-2023 15:40-0500 Systolic blood pressure 153 mm[Hg] Geneva Mary Grace Other [facility] Other 01-30-2023 15:40-0400 Body height 147.32 cm Geneva Mary Grace Other [facility] Other 01-30-2023 15:40-0400 Body mass index (BMI) [Ratio] 26.83 kg/m2 Geneva Mary Grace Other [facility] Other 01-30-2023 15:40-0400 Body temperature 97.7 [degF] [facility] Mary Grace Other [facility] Other 01-30-2023 15:40-0400 Body weight 58.24 kg Geneva Mary Grace Other [facility] Other 01-30-2023 15:40-0400 Diastolic blood pressure 67 mm[Hg] Geneva Mary Grace Other [facility] Other 01-30-2023 15:40-0400 Respiratory rate 18 /min Geneva Mary Grace Other [facility] Other 01-30-2023 15:40-0400 SaO2% (BldA) [Mass fraction] 98 % Geneva Mary Grace Other [facility] Other 01-30-2023 15:40-0400 Systolic blood pressure 136 mm[Hg] Geneva Mary Grace Other [facility] Other 08-30-2022 14:40-0500 Body height 147.32 cm Geneva Mary Grace Other [facility] Other 08-30-2022 14:40-0500 Body mass index (BMI) [Ratio] 26.29 kg/m2 Geneva Mary Grace Other [facility] Other 08-30-2022 14:40-0500 Body temperature 98.6 [degF] [facility] Grace Other [facility] Other 08-30-2022 14:40-0500 Body weight 57.06 kg Geneva Mary Grace Other [facility] Other 08-30-2022 14:40-0500 Diastolic blood pressure 72 mm[Hg] Geneva Mary Grace Other [facility] Other 08-30-2022 14:40-0500 Respiratory rate 18 /min [facility] Mary Grace Other [facility] Other 08-30-2022 14:40-0500 SaO2% (BldA) [Mass fraction] 96 % [facility] Mary Grace Other [facility] Other 08-30-2022 14:40-0500 Systolic blood pressure 139 mm[Hg] Geneva Mary Grace Other [facility] Other 05-30-2022 11:40-0500 Body height 147.32 cm Geneva Mary Grace Other [facility] Other 05-30-2022 11:40-0500 Body mass index (BMI) [Ratio] 27.25 kg/m2 Geneva Mary Grace Other [facility] Other 05-30-2022 11:40-0500 Body temperature 96.2 [degF] Geneva Mary Grace Other [facility] Other 05-30-2022 11:40-0500 Body weight 59.15 kg Geneva Mary Grace Other [facility] Other 05-30-2022 11:40-0500 Diastolic blood pressure 71 mm[Hg] Gneeva Mary Grace Other [facility] Other 05-30-2022 11:40-0500 SaO2% (BldA) [Mass fraction] 97 % Geneva Mary Grace Other [facility] Other 05-30-2022 11:40-0500 Systolic blood pressure 151 mm[Hg] Geneva Mary Grace Other [facility] Other 01-27-2022 12:20-0400 Body height 147.32 cm Geneva Mary Grace Other [facility] Other 01-27-2022 12:20-0400 Body mass index (BMI) [Ratio] 26.83 kg/m2 Geneva Mary Grace Other [facility] Other 01-27-2022 12:20-0400 Body temperature 98 [degF] Geneva Mary Grace Other [facility] Other 01-27-2022 12:20-0400 Body weight 58.24 kg Geneva Mary Grace Other [facility] Other 01-27-2022 12:20-0400 Diastolic blood pressure 69 mm[Hg] Geneva Mary Grace Other [facility] Other 01-27-2022 12:20-0400 Respiratory rate 18 /min Geneva Mary Grace Other [facility] Other 01-27-2022 12:20-0400 SaO2% (BldA) [Mass fraction] 96 % [facility] Mary Grace Other [facility] Other 01-27-2022 12:20-0400 Systolic blood pressure 136 mm[Hg] Geneva Mary Grace Other [facility] Other 09-20-2021 16:00-0400 Body height 147.32 cm Geneva Mary Grace Other [facility] Other 09-20-2021 16:00-0400 Body mass index (BMI) [Ratio] 27.42 kg/m2 Geneva Mary Grace Other [facility] Other 09-20-2021 16:00-0400 Body temperature 97.6 [degF] Geneva Mary Grace Other [facility] Other 09-20-2021 16:00-0400 Body weight 59.51 kg Geneva Mary Grace Other [facility] Other 09-20-2021 16:00-0400 Diastolic blood pressure 76 mm[Hg] Geneva Mary Grace Other [facility] Other 09-20-2021 16:00-0400 Respiratory rate 18 /min [facility] Mary Grace Other [facility] Other 09-20-2021 16:00-0400 SaO2% (BldA) [Mass fraction] 97 % Geneva Mary Grace Other [facility] Other 09-20-2021 16:00-0400 Systolic blood pressure 169 mm[Hg] Geneva Mary Grace Other [facility] Other 05-18-2021 15:40-0500 Body height 147.32 cm Geneva Mary Grace Other [facility] Other 05-18-2021 15:40-0500 Body mass index (BMI) [Ratio] 26.5 kg/m2 [facility] Mary [facility] Other [facility] Other 05-18-2021 15:40-0500 Body temperature 97.2 [degF] [facility] Mary Grace Other [facility] Other 05-18-2021 15:40-0500 Body weight 57.52 kg Geneva Mary Grace Other [facility] Other 05-18-2021 15:40-0500 Diastolic blood pressure 79 mm[Hg] Geneva Mary Grace Other [facility] Other 05-18-2021 15:40-0500 Respiratory rate 18 /min Geneva Mary Grace Other [facility] Other 05-18-2021 15:40-0500 SaO2% (BldA) [Mass fraction] 97 % [facility] Mary Grace Other [facility] Other 05-18-2021 15:40-0500 Systolic blood pressure 137 mm[Hg] [facility] Mary Grace Other [facility] Other Encounters Encounter Date Encounter Type Care Provider Facility Start: 08-04-2023 End: 08-04-2023 ambulatory [facility] Start: 07-11-2023 End: 07-11-2023 ambulatory [facility] Mary Grace Other [facility] Other Start: 07-11-2023 Telephone encounter Geneva [facility] Start: 05-30-2023 End: 05-30-2023 ambulatory Geneva Mary Grace Other [facility] Other Start: 05-30-2023 Office outpatient visit 25 minutes Geneva Mary Grace [facility] Start: 05-23-2023 End: 05-23-2023 ambulatory Geneva Mary Grace Other [facility] Other Start: 05-23-2023 Telephone encounter Geneva Mary Grace [facility] Start: 02-24-2023 End: 02-24-2023 ambulatory [facility] Start: 01-30-2023 End: 01-30-2023 ambulatory [facility] Mary Grace Other [facility] Other Start: 01-30-2023 Encounter by joes parrish [facility] Start: 01-30-2023 Office outpatient visit 25 minutes [facility] Mary [facility] Start: 10-27-2022 End: 10-27-2022 ambulatory Geneva Mary Grace Other [facility] Other Start: 10-27-2022 Telephone encounter Geneva Mary [facility] Start: 10-26-2022 End: 10-27-[address] JOHN PERDOMO Facility:[facility] Start: 09-12-2022 End: 09-12-2022 [facility] Start: 08-30-2022 End: 08-30-2022 ambulatory [facility] Mary Grace Other [facility] Other Start: 08-30-2022 Office outpatient visit 25 [...] End: 05-30-2022 ambulatory Geneva Mary Grace Other [facility] Other Start: 05-30-2022 Office outpatient visit 25 minutes Geneva Mary Grace [facility] Start: 05-27-2022 End: 05-28-[address] JOHN PERDOMO Facility:[facility] Start: 05-23-2022 Telephone encounter [facility] Mary [facility] Start: 05-23-2022 End: 05-24-[address] JOHN PERDOMO [employer] [facility] Other Start: 05-14-2022 End: 05-15-2022 ambulatory CARMINA ROSALES Facility:[facility] Start: 05-12-2022 End: 05-12-2022 ambulatory [facility] Other [facility] Other Start: 05-12-2022 Telephone encounter [facility] Start: 05-11-2022 End: 05-12-2022 ambulatory CARMINA ROSALES Facility:[facility] Start: 03-17-2022 End: 03-18-[address] JOHN PERDOMO Facility:[facility] Start: 01-27-2022 End: 01-27-2022 ambulatory [facility] Mary Grace Other [facility] Other Start: 01-27-2022 Office outpatient visit 25 minutes [facility] Mary [facility] Start: 01-21-2022 End: 01-22-[address] JOHN PERDOMO Facility:[facility] Start: 01-17-2022 End: 01-18-[address] JOHN PERDOMO Facility:[facility] Start: 01-13-2022 End: 01-13-2022 ambulatory [facility] Grace Other [facility] Other Start: 01-13-2022 Telephone encounter Geneva [facility] Start: 12-16-2021 Telephone encounter [facility] Start: 12-16-2021 End: 12-17-[address] JOHN PERDOMO [facility] Other Start: 12-09-2021 End: 12-10-2021 ambulatory JOHN PERDOMO Facility:[facility] Start: 12-08-2021 End: 12-08-2021 ambulatory [facility] Mary Grace Other [facility] Other Start: 12-08-2021 Telephone encounter Geneav Mary Grace [facility] Start: 12-07-2021 End: 12-07-[address] JOHN PERDOMO Facility: Start: 12-06-2021 End: 12-07-[address] JOHN PERDOMO Facility:[facility] Start: 12-01-2021 End: 12-02-[address] JOHN PERDOMO Facility:[facility] Start: 11-19-2021 End: 11-20-[address] JOHN PERDOMO Facility:[facility] Start: 11-01-2021 End: 11-01-2021 ambulatory [facility] Other [facility] Other Start: 11-01-2021 Encounter by jose abreu link [facility] Start: 10-28-2021 End: 10-28-2021 ambulatory [facility] Mary Grace Other [facility] Other Start: 10-28-2021 Telephone encounter [facility] Start: 10-13-2021 End: 10-13-2021 ambulatory Geneva Mary Grace Other [facility] Other Start: 10-13-2021 Encounter by jose r link [facility] Start: 10-06-2021 End: 10-06-2021 ambulatory Geenva Mary Grace Other [facility] Other Start: 10-06-2021 Telephone encounter Geneva Mary [facility] Start: 09-21-2021 End: 09-21-2021 ambulatory [facility] Mary Grace Other [facility] Other Start: 09-21-2021 Telephone encounter [facility] Mary [facility] Start: 09-20-2021 End: 09-20-2021 ambulatory [facility] Mary Grace Other [facility] Other Start: 09-20-2021 Office outpatient visit 25 minutes [facility] Start: 08-01-2021 End: 08-01-2021 ambulatory [facility] Other [facility] Other Start: 08-01-2021 Encounter by compute r link [facility] Start: 07-18-2021 End: 07-18-2021 ambulatory [facility] Other [facility] Other Start: 07-18-2021 Encounter by ApptheGame r link [facility] Start: 05-18-2021 End: 05-18-2021 ambulatory [facility] Other [facility] Other Start: 05-18-2021 Office outpatient visit 25 minutes [facility] Immunizations Immunization Date Immunization Notes Care Provider Fa cility NEGATED: Highlighted row has not occurred!06-05-2019 influenza, high dose seasonal, preservative-free Patient Objection [facility] Other [facility] Other Payers Date Payer Category Payer Medicare [id number] 1958 Unknown [id number] 1950 Unknown [id number] 2.16.8 40.1.742685.3.579.2.647 1950 Unknown [id number] 2.16.84 0.1.465191.3.579.2.593 1951 Unknown [id number] 2.16.84 0.1.872584.3.579.2.593 1951 Unknown [id number] 2.16.84 0.1.982998.3.579.2.593 1951 Unknown [id number] 2.16.84 0.1.534112.3.579.2.593 1951 Unknown [id number] 2.16.84 0.1.775449.3.579.2.593 1951 Unknown [id number] 2.16.84 0.1.739899.3.579.2.593 1951 Unknown [id number] 2.16.84 0.1.532079.3.579.2.593 1951 Unknown [id number] 2.16.84 0.1.553664.3.579.2.593 1951 Unknown [id number] 2.16.84 0.1.106632.3.579.2.593 1951 Unknown [id number] 2.16.84 0.1.883947.3.579.2.593 1951 Unknown [id number] 2.16.84 0.1.969725.3.579.2.593 1951 Unknown [id number] 2.16.84 0.1.235405.3.579.2.593 1951 Unknown [id number] 2.16.84 0.1.359947.3.579.2.593 1951 Unknown [id number] 2.16.84 0.1.448987.3.579.2.593 1951 Unknown [id number] 2.16.84 0.1.960506.3.579.2.593 1951 Unknown [id number] 2.16.84 0.1.668409.3.579.2.593 1951 Unknown [id number] 2.16.84 0.1.728227.3.579.2.593 1951 Unknown [id number] 2.16.84 0.1.919733.3.579.2.593 1951 Unknown [id number] 2.16.84 0.1.108164.3.579.2.593 1951 Unknown [id number] 2.16.84 0.1.664163.3.579.2.593 Social History Date Type Detail Facility Unknown if ever smoked [facility] Other Sex Assigned At Sex Assigned At Bir th [facility] Other Clinical Notes 04-27-2020 to 08-04-2023 Note Date & Type Note Facility 08-04-2023 Note [facility] Subjective Claudia Estrella is a 73 [...] Rfl: 3 ergocalciferol (Vitamin D-2) 1.25 MG (87928 UT) capsule, Take 1 capsule by mouth 1 (one) time per week., Disp: , Rfl: ferrous sulfate 325 (65 Fe) M (more content not included)... [facility] 07[facility]2023 Note Reviewed pt's b/p [...] to evaluate symptoms and response. Carmina Rosales DIGITAL TECHNICIAN Division of Cardiology, [facility]- [phone] Pager- [phone] Email- [email or web address] 05-30-2023 Evaluation note Encounter Date Diagnosis Assessment [...] has adequate Iron stores. Continue oral iron. [facility] Other [id number] NoteNYHC II Currently euvolemic without exacerbation Continue GDMT- Diuretic therapy- As per nephrology recommendations she takes Bumex 3 mg twice daily and metolazone 2.5 mg as needed Monitor daily weights, I&O, fluid restriction 1.5-2L/day, renal function and electrolytesUnCrystal [facility]-2023 NoteHypertension is Well-controlled blood pressure 131/71 Continue all medications Follow-up with nephrology as scheduledUnCrystal Clinic [facility] Center 02-24-2023 NoteCoronary artery disease is stable Continue GDMT- Continue aspirin, Lipitor and metoprolol continue risk factor modifications- heart healthy diet, regular exercise as tolerated and continue all medications.[facility] 02-24-2023 NoteUTP CARDIOLOGY PROGRESS NOTE [...] tablet 3 ergocalciferol (Vitamin D-2) 1.25 MG (78999 [facility]) capsule Take 1 capsule by mouth [...] moderately elevated right-sided pressures, (more content not included)...[facility] NotePatient here for 6 mo follow up CAD, chronic diastolic heart failure, hypertension, and CKD. Had labs about 1 month ago. Still gets the chest pain, but says it's better. Gets winded when walking long distances. Doing great. Review of Systems Cardiovascular: Positive for chest pain (continues to improve) and dyspnea on exertion. All other systems reviewed and are negative.[facility] 01-30-2023 Evaluation note* Encounter Date [...] has adequate Iron stores. Continue oral iron. [facility] Other 03-13-2023 NoteUT [facility] - [facility] Subjective Claudia Estrella is a 72 [...] is alert and orien (more content not included)...[facility]* Encounter Date Diagnosis [...] past. Will defer this to the PCP. [facility] Other 11-28-2022 Evaluation note* Encounter Date Diagnosis [...] an adequate Iron stores. Continue oral iron. [facility] Other 11-21-2022 Evaluation note* Encounter Date Diagnosis Assessment Notes Treatment Notes Treatment Clinical Notes May, CKD (chronic kidney disease) stage 4, GFR 15-29 ml/min (ICD-10 - N18.4) [facility] Other 07-28-2022 Evaluation note* Encounter Date Diagnosis [...] an adequate Iron stores. Continue oral iron. [facility] Other 03-22-2022 Evaluation note* Encounter Date Diagnosis Assessment Notes Treatment Notes Treatment Clinical Notes Aug, Hypokalemia (ICD-10 - E87.6) [facility] Other 03-21-2022 Evaluation note* Encounter Date Diagnosis [...] an adequate Iron stores. Continue oral iron. [facility] Other 01-16-2022 Evaluation note* Encounter Date Diagnosis Assessment Notes Treatment Notes Treatment Clinical Notes Jul, Hyperuricemia (ICD-1 0 - E79.0) [facility] Other 11-16-2021 Evaluation note* Encounter Date Diagnosis [...] an adequate Iron stores. Continue oral iron. [facility] Other 11-02-2020 NoteRounds at this time with [...] MURPHY Amor notified Taylor Fisher & Maryan Lopez.[facility] HospitalComment on above:Result Comment: Electronically Signed By: Kip WU, Zuleyma Redman.rashmi\Date and Time Signed: 05/04/20 13:53 [id number] NoteBasic Information Cardiology Progress Subjective Cardiology consulted over weekend for chest discomfort post operatively. Her EKG was non-acute and troponin trended negative. She does have a telecom field technician and reportedly had stress testing in August [...] mg/dL High (05/04/20 12:12:00) POC Device SN: [id number] (05/04/20 12:12:00) POC Username: NESHA COTA (05/04/20 [...] prefers all testing to be performed at [facility]. Faxed notes to her primary telecom field technician's office, Dr Fish. Attempted to schedule stress testing with [facility]. Ordered: EC Stress Echo Complete w/ Contrast 2. Hypertension (I10: Essential (primary) hypertension) Continue current medications and follow up with primary telecom field technician on discharge. 3. Diabetes (E11.9: Type 2 [...] discuss this management further with her primary telecom field technician, but agreeable to starting statin for now. Patient is offered in-patient stress echocardiogram but declines as she wants to be discharged. She is offered out patient stress testing at [facility] [place] and she prefers to have this done at [facility]. Per Central Scheduling at [facility], Dobutamine Stress Echo's are not performed at the facility. She will have close FU with Dr Fish to move forward with testing. D/W Dr Guzmán. Faxed info from [facility] Hospital stay to her primary telecom field technician. Attestation Discussed patient findings and plan of [...] tab(s), Oral, Bedtime saturnino (more content not included)...[facility] HospitalComment on above: Result Comment: Electronically Signed By: Trudy SUAZO CNP\.br\Date and Time Signed: 05/04/20 13:15 EST\.br\Electronically Co-Signed By: Darrell VIGLI, Jay Jay Conklin\.br\Date and Time Co-Signed: 05/04/20 13:19 [id number] NoteIV removed. nurse tray server emptied. patient and patients daughter verbalized understanding of discharge teaching. patient refused flu vaccination. patient did not verbalize any questions or concerns atthis time.[facility]11-02-2020 Note Admission Information Admitting Physician - [...] another day versus following up with her telecom field technician and she has opted to do the latter. This is reasonable as she is chest pain-free at rest as well as on exertion. Patient is already on lisinopril, metoprolol, aspirin. Lipitor 20 mg was added for further risk reduction. She will follow-up with her primary telecom field technician Dr. Fish. Regarding her recent Ortho surgery she will do weightbearing activity as tolerated and use crutchesfor assistance with ambulation. Dr. Kushal Guzmán Hospitalist This report was transcribed using voice recognition software. Every effort was made to ensure accuracy, however, inadvertently computerized farm planner mistakes may be present. Significant Findings POWERSCRIBE [...] pain) Ordered: Hospital Discharge Day 30 Min/Less 95197 2. Hypertension (I10: Essential (primary) hypertension) Ordered: Hospital Discharge Day 30 Min/Less 42013 3. Diabetes (E11.9: Type 2 diabetes mellitus without complications) Ordered: atorvastatin, 20 mg = 1 tab(s), Oral, Bedtime, # 30 tab(s), Refills(s) 1, Pharmacy: [facility]/pharmacy #[id number], 141.5, cm, 04/24/20 13:16:00 EDT, Height/Length Dosing, 69, kg, 05/02/20 5:50:00 EDT, Weight Dosing Hospital Discharge Day 30 Min/Less 39670 4. Acute medial meniscus tear of left knee (S83.242A: Other tear of medial meniscus, current injury, left knee, initial encounter) Ordered: Hospital Discharge Day 30 Min/Less 54871 5. Localized osteoarthritis of left knee (M17.12: Unilateral primary osteoarthritis, left knee) Ordered: Hospital Discharge Day 30 Min/Less 50250 6. No contraindication to deep vein thrombosis (DVT) prophylaxis (Z78.9: Other specified health status) Ordered: Hospital Discharge Day 30 Min/Less 37151 Bruit (R09.89: Other specified symptoms and signs [...] With When Contact Information Follow up with Tool Design Engineer Within 1 week Additional Instructions: JOHN BUST[facility]TER[facility] [address] [place] [address]- Business (1) Additional Instructions: David Talamantes [address] [place] [address]- Business (1) Additional Instructions: Keep scheduled (more content not included)...[facility] HospitalComment on above:Result Comment: Electronically Signed By: Kushal GUZMÁN MD\.br\Date and Time Signed: 05/04/20 12:[id number]Dr[address] Amir rounded with patient earlier. CRM [...] time. Anticipated discharge 05/04/2020 home. CRM to follow.[facility] HospitalComment on above:Result Comment: Electronically Signed By: Terri Berger RN\.br\Date and Time Signed: 05/02/20 10:06 [id number] NoteReason for Consultation Chest pain postoperatively History of Present Illness Mrs. Estrella is a very pleasant 70-year-old diabetic female with hypertension, unknown cholesterol, previously seen by telecom field technician Dr. Fish in September 2019 for what [...] testing apparently took place in a private telecom field technician office, so I am unsure whether we [...] test in September 2019 at a private telecom field technician 's office, reportedly LV dysfunction per thepatient, [...] she undergo a dobutami (more content not included)...[facility] HospitalComment on above:Result Comment: Electronically Signed By: Eleuterio VIGIL, John Olson\.rashmi\Date and Time Signed: 05/02/20 08:35 [id number] NoteBasic Information Accompanied by: Family member Source [...] 84 mg/dL (05/01/20 16:07:00) POC Device SN: [id number] (05/01/20 16:07:00) POC Username: ALEXIA HALL (05/01/20 16:07:00) Diagnostic Results EKG NSR [address]-T wave changes Images No qualifying data available. Assessment/Plan 1. Other chest pain (R07.89: Other chest pain) - possible ACS, risk factors include DM, HTN, obesity - telemetry, troponin - ASA, fasting lipid profile - consult [facility] cardi[place] 2. Hypertension (I10: Essential (primary) hypertension) [...] acetaminophen 325 mg Tab (more content not included)...[facility] HospitalComment on above:Result Comment: Electronically Signed By: JUN VIGIL, Nhung\.br\Date and Time Signed: 05/01/20 18:30 [id number] Note [id number]:[email or web address] Evaluation noteNo InformationNoWellSpan Health [email or web address] Other Hispfge general Narrative - Reported* Type Description Date [...] eye surgery 04/2021 Hospitalization History see above [facility] Other Hispcoo general Narrative - Reported* Type Description Date [...] RIGHT EYE 2021 Hospitalization History see above [facility] Other History general Narrative - Reported* Type [...] HEART CATH 12/2021 Hospitalization History see above [facility] Other Summary Purpose Family History No Family [...] and content) DATE CREATED AUTHOR [facility]/20[facility] DATE CREATED AUTHOR AUTHOR'S ORGANIZ ATION 08/05/2021 [facility] DATE CREATED AUTHOR AUTHOR'S ORGANIZ ATION 12/16/2021 [facility] DATE CREATED AUTHOR AUTHOR'S ORGANIZ ATION 10/29/2022 [facility] DATE CREATED AUTHOR AUTHOR'S ORGANIZ ATION 08/10/2023 [facility] REASON FOR VISIT (unrecogniz [...] BE BASED ON THE PRIMARY CLINICAL RECORDS. [facility]. provides no warranty or guarantee of the accuracy or completeness of information in this document.
[2023-08-10] MEDS: METOPROLOL TARTRATE 25 MG TABLET 75 MG PO (23:41)
[2023-08-10] MEDS: DOXAZOSIN MESYLATE 2 MG TABLET 4 MG PO (23:45)
[2023-08-10] MEDS: FERROUS SULFATE 325 MG TABLET PO (23:47)
[2023-08-10] MEDS: BUMETANIDE 1 MG/4 ML VIAL IVP (23:50)
[2023-08-10] MEDS: HEPARIN SODIUM (PORCINE) 5,000 UNIT/ML VIAL 5000 UNIT SUBQ (23:50)
[2023-08-11] VITALS (102 sets, daily range): BP systolic 116–162; BP diastolic 47–84; PULSE 66–82; RESP 0–27; TEMP 36.5–36.8; O2SAT 91–97
[2023-08-11 05:06] LABS: Basophils Absolute Auto 0.1 10^3/uL (0.0-0.1); Basophils Percent Auto 0.8 % (0.2-2.0); Eosinophils Absolute Auto 0.2 10^3/uL (0.0-0.7); Eosinophils Percent Auto 2.3 % (0.9-7.0); Hematocrit 33.8 % (36.0-48.0); Hemoglobin 10.9 g/dL (12.0-16.0); Immature Granulocytes Abs Auto 0.06 10^3/uL (0.00-0.03); Immature Granulocytes Pct Auto 0.6 % (0.0-0.5); Lymphocytes Absolute Auto 2.1 10^3/uL (1.2-3.8); Lymphocytes Percent Auto 20.8 % (20.5-60.0); Mean Corpuscular HGB Conc 32.2 g/dL (29.9-35.2); Mean Corpuscular Hemoglobin 28.6 pg (26.7-34.0); Mean Corpuscular Volume 88.7 fL (81.0-99.0); Monocytes Absolute Auto 0.7 10^3/uL (0.3-0.8); Neutrophils Absolute Auto 6.9 10^3/uL (1.4-6.5); Neutrophils Percent Auto 68.5 % (43.0-75.0); Platelet Count 224 10^3/uL (150-450); Red Blood Count 3.81 10^6/uL (4.20-5.40); Red Cell Distribution Width 13.7 % (11.0-15.0); White Blood Count 10.1 10^3/uL (4.0-11.0)
[2023-08-11 05:38] LABS: Anion Gap 12.7; BUN Creatinine Ratio 18.9; Calcium 8.7 mg/dL (8.5-10.1); Carbon Dioxide 28.5 mmol/L (21.0-32.0); Chloride 103 mmol/L (98-107); Estimated GFR (African America 31 (>=60); Estimated GFR (Non-African Ame 26 (>=60); Glucose 121 mg/dL (74-106); Magnesium 2.2 mg/dL (1.8-2.4); Potassium 3.2 mmol/L (3.5-5.1); Sodium 141 mmol/L (136-145)
[2023-08-11] MEDS: LEVOTHYROXINE SODIUM 25 MCG TABLET 50 MCG PO (06:36)
[2023-08-11] MEDS: POTASSIUM CHLORIDE 10 MEQ ER TABLET 40 MEQ PO ×3 (06:37→21:43)
[2023-08-11] MEDS: DOXAZOSIN MESYLATE 2 MG TABLET 4 MG PO ×3 (06:37→21:43)
[2023-08-11] MEDS: HYDRALAZINE HCL 50 MG TABLET PO ×3 (06:38→21:43)
[2023-08-11] MEDS: MIDODRINE HCL 5 MG TABLET PO (06:41)
[2023-08-11 07:11] LABS: Free T3 1.89 pg/mL (2.18-3.98); Magnesium 2.3 mg/dL (1.8-2.4); Thyroid Stimulating Hormone 3.074 uIU/mL (0.358-3.740)
[2023-08-11] MEDS: DORZOLAMIDE HCL 2%/TIMOLOL MALEATE 0.5% 200 DROP/10 ML BOTTLE OP ×2 (08:24→21:36)
--- NOTE | 2023-08-11 08:37 | P.HP_ITS ---
H&P: HPI History of Present Illness Chief complaint: Fluid Overload per paper bundler CHF Narrative: Patient was evaluated by cardiology, had echocardiogram yesterday, with thought based on initial exam she is little bit on the dry side so we backed off on her diuretics. Echocardiogram from yesterday suggested fluid overload with significantly elevated right ventricular pressures. 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 (ICD-10) Cataract ?H26.9 - Unspecified cataract (ICD-10) FH: cholecystectomy ?Z83.79 - Family history of other diseases of the digestive system (ICD-10) Tarsal tunnel syndrome of right side ?G57.51 - Tarsal tunnel syndrome, right lower limb (ICD-10) Ovarian cyst, left ?N83.202 - Unspecified ovarian cyst, left side (ICD-10) Diabetic acidosis, type II ?E11.10 - Type 2 diabetes mellitus with ketoacidosis without coma (ICD-10) Anemia ?D64.9 - Anemia, unspecified (ICD-10) HTN (hypertension) ?I10 - Essential (primary) hypertension (ICD-10) Hypothyroid ?E03.9 - Hypothyroidism, unspecified (ICD-10) Pulmonary hypertensive arterial disease ?I27.21 - Secondary pulmonary arterial hypertension (ICD-10) Macular edema ?H35.81 - Retinal edema (ICD-10) CAD (coronary artery disease) ?I25.10 - Atherosclerotic heart disease of [place] coronary artery without angina pectoris (ICD-10) Chronic kidney disease (CKD) stage G4/A1, severely decreased glomerular filtration rate (GFR) between 15-29 mL/min/1.73 square meter and albuminuria creatinine ratio less than 30 mg/g ?N18.4 - Chronic kidney disease, stage 4 (severe) (ICD-10) Surgical History (Updated 08/10/23 @ 22:01 by Cherri Bello) History of arthroscopic knee surgery ?Z98.890 - Other specified postprocedural states (ICD-10) S/P CABG x 2 ?Z95.1 - Presence of aortocoronary bypass graft (ICD-10) Social History (Updated 08/10/23 @ 22:04 by Cherri Bello) Within the past year, how often did you have a drink containing alcohol: never Score interpretation: A score less than 3 is consistent with normal alcohol consumption. Smoking status: Never smoker Highest level of school completed/degree received: some college, no degree Meds Home Medications and Allergies Home Medications Medication Instructions Recorded Confirmed Type allopurinol 100 mg tablet 100 mg PO Q24H 08/10/23 08/10/23 History amlodipine 10 mg tablet 10 mg PO DAILY 08/10/23 08/10/23 History atorvastatin 40 mg tablet 40 mg PO DAILY 08/10/23 08/10/23 History bumetanide 2 mg tablet 2 mg PO BID 08/10/23 08/10/23 History dorzolamide 22.3 mg-timolol 6.8 1 drp ophthalmic (eye) BID 08/10/23 08/11/23 History mg/mL eye drops doxazosin 4 mg tablet 4 mg PO Q8H 08/10/23 08/10/23 History ergocalciferol (vitamin D2) 1,250 50,000 unit PO .every other week 08/10/23 08/10/23 History mcg (50,000 unit) capsule ferrous sulfate 325 mg (65 mg 325 mg PO .EVERY OTHER DAY 08/10/23 08/11/23 History iron) tablet hydralazine 50 mg tablet 50 mg PO TID 08/10/23 08/10/23 History insulin glargine 100 unit/mL (3 unit subcut 08/10/23 History mL) subcutaneous pen (Basaglar KwikPen U-100 Insulin) isosorbide mononitrate 30 mg 30 mg PO Q24H 08/10/23 08/10/23 History tablet,extended release 24 hr levothyroxine 50 mcg tablet 50 mcg PO Q24H 08/10/23 08/10/23 History metolazone 2.5 mg tablet 2.5 mg PO .TWICE A WEEK 08/10/23 08/11/23 History metoprolol tartrate 50 mg tablet 75 mg PO Q12H 08/10/23 08/10/23 History midodrine 5 mg tablet 5 mg PO Q8H 08/10/23 08/10/23 History potassium chloride 20 mEq 40 meq PO TID 08/10/23 08/10/23 History tablet,extended release liothyronine 5 mcg tablet 10 mcg (2 x 5 mcg) PO QD #60 tabs 08/11/23 Rx nitroglycerin 0.4 mg sublingual 0.4 mg sublingual Q5M PRN chest 08/11/23 08/11/23 History tablet pain Allergies Allergy/AdvReac Type Severity Reaction Status Date / Time azithromycin Allergy Severe Anaphylaxis Verified 08/10/23 22:04 hydromorphone [From Dilaudid] Allergy Intermediate Vomiting Verified 08/10/23 22:04 spironolactone Allergy Intermediate Hives Verified 08/10/23 22:04 Penicillins Allergy Unknown Hives Verified 08/10/23 22:04 Exam Constitutional Vital Signs, click to edit/add: Last Vital Signs Temp 98.2 F 08/11/23 07:37 Pulse 74 08/11/23 07:30 Resp 18 08/11/23 07:30 BP 117/54 08/11/23 07:29 Pulse Ox 96 08/11/23 04:00 O2 Del Method Room Air 08/11/23 04:00 Documenting provider has reviewed patient's vital signs: yes Common normals: no apparent distress Chest Common normals: inspection of chest normal Respiratory Common normals: normal respiratory effort and no retractions Auscultation: rales (A quarter of the way up the lung quinones) Cardio Common normals: no JVD, regular rate and regular rhythm Extremity Common normals: normal to inspection and no pedal edema Results Labs Labs: Short CBC 08/10/23 08/11/23 Range/Units 17:49 04:02 WBC 9.3 10.1 (4.0-11.0) 10^3/uL Hgb 11.8 L 10.9 L (12.0-16.0) g/dL Hct 35.7 L 33.8 L (36.0-48.0) % Plt Count 221 224 (150-450) 10^3/uL BMP 08/10/23 08/11/23 17:49 04:02 Sodium 140 141 Potassium 3.9 3.2 L Chloride 102 103 Carbon Dioxide 27.5 28.5 BUN 37.0 H 36.0 H Creatinine 2.16 H 1.90 H Glucose 209 H 121 H Calcium 9.2 8.7 Liver Function 08/10/23 Range/Units 17:49 Total Bilirubin 0.4 (0.2-1.0) mg/dL AST 20 (15-37) U/L ALT 26 (14-59) U/L Alkaline Phosphatase 104 (46-116) U/L Albumin 3.1 L (3.4-5.0) g/dL Assessment and Plan Assessment and Plan (1) HTN (hypertension): (2) Hypothyroid: (3) CAD (coronary artery disease): (4) Systolic heart failure: Plan Uncontrolled hypertension, acute elevation in BNP, normal troponin, secondary to acute systolic heart failure. Discussed case with cardiology. He will need to get 48 hours of diuresis IV. And restart home diuretics. Will place patient on Bumex drip this morning. If tolerates that the numbers are improved tomorrow and she is ambulating without difficulty she could be discharged home tomorrow Hypothyroidism-low T3, with a history of hypothyroidism and this is CHF, will add Cytomel Mild protein calorie malnutrition-diet management Iron deficiency anemia and anemia of chronic kidney disease-monitor as an outpatient Chronic kidney disease stage IV-monitor daily Hypertension-continue with home medications, will change the midodrine to just as needed Intensity of services requiring a 2-day hospital stays. Diuresis over 2 days to protect her kidneys. This were will require 2 midnight stay. Change patient to inpatient status
--- NOTE | 2023-08-11 08:37 | PM.DS1 ---
DS: Providers Provider Date of admission: 08/10/23 20:22 Primary care physician: ROCCO GALINDO, DO Consults: 08/11/23 07:00 Consult to Cardiology Routine Reason for consultation: Acute on Chronic Diastolic HF Has provider been notified: Yes DS: Summary Time Spent with Patient Time attestation: Total time spent providing and/or coordinating discharge services: Exam Constitutional Vital Signs, click to edit/add: Last Vital Signs Temp 98.2 F 08/11/23 07:37 Pulse 74 08/11/23 07:30 Resp 18 08/11/23 07:30 BP 117/54 08/11/23 07:29 Pulse Ox 96 08/11/23 04:00 O2 Del Method Room Air 08/11/23 04:00 DS: Data Data Completed and Pending Labs on day of discharge: Labs from last 24 hours 08/11/23 08/11/23 08/10/23 04:02 04:02 17:49 WBC 10.1 9.3 RBC 3.81 L 4.07 L Hgb 10.9 L 11.8 L Hct 33.8 L 35.7 L MCV 88.7 87.7 MCH 28.6 29.0 MCHC 32.2 33.1 RDW 13.7 13.7 Plt Count 224 221 MPV 11.0 10.8 Neut % (Auto) 68.5 68.3 Lymph % (Auto) 20.8 21.0 [place] % (Auto) 7.0 6.7 Eos % (Auto) 2.3 2.7 Baso % (Auto) 0.8 0.8 Neut # (Auto) 6.9 H 6.4 Lymph # (Auto) 2.1 2.0 [place] # (Auto) 0.7 0.6 Eos # (Auto) 0.2 0.3 Baso # (Auto) 0.1 0.1 Abs Immat Gran (auto) 0.06 H 0.05 H Imm/Tot Granulo (auto) 0.6 H 0.5 Sodium 141 140 Potassium 3.2 L 3.9 Chloride 103 102 Carbon Dioxide 28.5 27.5 Anion Gap 12.7 14.4 BUN 36.0 H 37.0 H Creatinine 1.90 H 2.16 H Est GFR ( Amer) 31 L 27 L Est GFR (Non-Af Amer) 26 L 22 L BUN/Creatinine Ratio 18.9 17.1 Glucose 121 H 209 H Calcium 8.7 9.2 Magnesium 2.3 2.2 Total Bilirubin 0.4 AST 20 ALT 26 Alkaline Phosphatase 104 Troponin I High Sens 14.0 11.8 NT-Pro-B Natriuret Pep 1540.0 H* 1939.0 H* Total Protein 7.8 Albumin 3.1 L Globulin 4.7 Albumin/Globulin Ratio 0.7 TSH 3.074 Thyroxine (T4) 8.40 Free T3 1.89 L Discharge Plan Discharge Disposition: Home, Self-Care Condition: Good Discharge Medications: New liothyronine 5 mcg Tablet 10 mcg PO QD Qty: 60 11RF Continued amlodipine 10 mg tablet 10 mg PO DAILY bumetanide 2 mg tablet 2 mg PO BID doxazosin 4 mg tablet 4 mg PO Q8H hydralazine 50 mg tablet 50 mg PO TID isosorbide mononitrate 30 mg tablet extended release 24 hr 30 mg PO Q24H levothyroxine 50 mcg tablet 50 mcg PO Q24H metoprolol tartrate 50 mg tablet 75 mg PO Q12H midodrine 5 mg tablet 5 mg PO Q8H allopurinol 100 mg tablet 100 mg PO Q24H atorvastatin 40 mg tablet 40 mg PO DAILY dorzolamide-timolol 22.3-6.8 mg/mL drops 1 drp OPHTHALMIC (EYE) BID ergocalciferol (vitamin D2) 1,250 mcg (50,000 unit) capsule 50,000 unit PO .every other week Rx Instructions: every other Monday metolazone 2.5 mg tablet 2.5 mg PO .TWICE A WEEK ferrous sulfate 325 mg (65 mg iron) tablet 325 mg PO .EVERY OTHER DAY insulin glargine [Basaglar KwikPen U-100 Insulin] 100 unit/mL (3 mL) insulin pen SUBCUT potassium chloride 20 mEq tablet extended release 40 meq PO TID nitroglycerin 0.4 mg tablet, sublingual 0.4 mg sublingual Q5M PRN (Reason: chest pain) Forms: Portal Instructions
--- NOTE | 2023-08-11 08:40 | CM.NOTE ---
Rounds made with Dr. Lockett. Possible discharge later this afternoon. Verbalizes agreement.
[2023-08-11] MEDS: METOPROLOL TARTRATE 25 MG TABLET 75 MG PO ×2 (09:11→21:37)
[2023-08-11] MEDS: ISOSORBIDE MONONITRATE 30 MG TAB.ER.24H PO (09:12)
[2023-08-11] MEDS: AMLODIPINE BESYLATE 5 MG TABLET 10 MG PO (09:14)
[2023-08-11] MEDS: ALLOPURINOL 100 MG TABLET PO (09:14)
[2023-08-11] MEDS: LIOTHYRONINE SODIUM 5 MCG TABLET 10 MCG PO (09:15)
[2023-08-11] MEDS: HEPARIN SODIUM (PORCINE) 5,000 UNIT/ML VIAL 5000 UNIT SUBQ ×2 (09:15→21:36)
--- NOTE | 2023-08-11 09:46 | SWNOTE1 ---
SW met with pt, pt's daughter in room. Pt lives at home with spouse. She is independent at home and does not use any DME. Pt denies having any discharge needs at this time. SW reviewed RODRIGEZ forms with pt, she voiced understanding, no questions at this time. Pt signed form, original was given to pt and copy placed on chart.
[2023-08-11] MEDS: BUMETANIDE 10 MG in 0.9 % SODIUM CHLORIDE 160 ML 20 MG IV (10:03)
[2023-08-11] MEDS: INSULIN DETEMIR 300 UNIT/3 ML INSULN.PEN 10 UNIT SUBQ ×2 (10:03→21:37)
--- NOTE | 2023-08-11 10:44 | SWNOTE1 ---
SW informed pt is staying and switched to inpatient. SW to complete IMM with pt.
[2023-08-11 12:08] LABS: Glucometer 145 mg/dL (74-106)
--- NOTE | 2023-08-11 13:30 | PC.NURSE ---
Performed orthostatic vitals on patient prior to getting up to rest room. Patient does not report any change in her balance or lightheadness but does report feeling uneasy, not herself. Patient was able to walk to the restroom with standby assistance at this time. No additional needs or concerns were reported at this time. Call light remains within reach.
--- NOTE | 2023-08-11 15:11 | SWNOTE1 ---
Pt is inpatient status. SW reviewed IMM form with pt. She voiced understanding, no questions. Pt signed form, original was given to pt and copy on chart.
[2023-08-11 16:14] LABS: Potassium 3.9 mmol/L (3.5-5.1)
[2023-08-11 17:56] LABS: Glucometer 156 mg/dL (74-106)
[2023-08-11 19:42] LABS: Glucometer 192 mg/dL (74-106)
[2023-08-11] MEDS: ATORVASTATIN CALCIUM 40 MG TABLET PO (21:43)
--- NOTE | 2023-08-11 23:46 | PC.NURSE ---
orthostatic b/p's noted as follows: lying, rt upper arm b/p 161/71, HR 71, SPO2 94%, temp 98.3, resp 16. sitting, rt upper arm b/p 155/64, HR 71. standing, rt arm b/p 131/71, HR 74.
--- NOTE | 2023-08-11 23:50 | PC.NURSE ---
Orthostatic b/p's noted as follows: Lying- B/P 161/41, HR 71, SPO2 94%, Temp 98.3, Resp 16. Sitting-B/P 155/69, HR 71. Standing-B/P 131/71, HR 74.
[2023-08-12] VITALS (11 sets, daily range): BP systolic 122–137; BP diastolic 67–71; PULSE 64–79; RESP 16–18; TEMP 36.8; O2SAT 93–95
[2023-08-12 04:57] LABS: Basophils Percent Auto 0.4 % (0.2-2.0); Eosinophils Absolute Auto 0.3 10^3/uL (0.0-0.7); Eosinophils Percent Auto 3.2 % (0.9-7.0); Hematocrit 33.3 % (36.0-48.0); Hemoglobin 10.9 g/dL (12.0-16.0); Immature Granulocytes Abs Auto 0.02 10^3/uL (0.00-0.03); Immature Granulocytes Pct Auto 0.2 % (0.0-0.5); Lymphocytes Absolute Auto 2.2 10^3/uL (1.2-3.8); Lymphocytes Percent Auto 24.7 % (20.5-60.0); Mean Corpuscular HGB Conc 32.7 g/dL (29.9-35.2); Mean Corpuscular Hemoglobin 29.3 pg (26.7-34.0); Mean Corpuscular Volume 89.5 fL (81.0-99.0); Mean Platelet Volume 10.7 fL (9.5-13.5); Monocytes Absolute Auto 0.7 10^3/uL (0.3-0.8); Monocytes Percent Auto 7.8 % (1.7-12.0); Neutrophils Absolute Auto 5.7 10^3/uL (1.4-6.5); Neutrophils Percent Auto 63.7 % (43.0-75.0); Platelet Count 208 10^3/uL (150-450); Red Blood Count 3.72 10^6/uL (4.20-5.40); Red Cell Distribution Width 13.8 % (11.0-15.0)
[2023-08-12 05:29] LABS: Alanine Aminotransferase 24 U/L (14-59); Albumin Globulin Ratio 0.6; Albumin Level 2.6 g/dL (3.4-5.0); Alkaline Phosphatase 81 U/L (46-116); Anion Gap 12.8; Aspartate Amino Transferase 20 U/L (15-37); BUN Creatinine Ratio 18.7; Bilirubin Total 0.4 mg/dL (0.2-1.0); Calcium 8.9 mg/dL (8.5-10.1); Carbon Dioxide 26.5 mmol/L (21.0-32.0); Chloride 106 mmol/L (98-107); Estimated GFR (African America 33 (>=60); Estimated GFR (Non-African Ame 27 (>=60); Globulin 4.3 g/dL; Glucose 61 mg/dL (74-106); Potassium 4.3 mmol/L (3.5-5.1); Sodium 141 mmol/L (136-145); Total Protein 6.9 g/dL (6.4-8.2)
[2023-08-12] MEDS: LEVOTHYROXINE SODIUM 25 MCG TABLET 50 MCG PO (06:36)
[2023-08-12] MEDS: DOXAZOSIN MESYLATE 2 MG TABLET 4 MG PO ×2 (06:36→14:29)
[2023-08-12] MEDS: POTASSIUM CHLORIDE 10 MEQ ER TABLET 40 MEQ PO ×2 (06:37→14:30)
[2023-08-12] MEDS: HYDRALAZINE HCL 50 MG TABLET PO ×2 (06:37→14:29)
[2023-08-12 08:02] LABS: Glucometer 78 mg/dL (74-106)
[2023-08-12] MEDS: ISOSORBIDE MONONITRATE 30 MG TAB.ER.24H PO (09:32)
[2023-08-12] MEDS: HEPARIN SODIUM (PORCINE) 5,000 UNIT/ML VIAL 5000 UNIT SUBQ (09:32)
[2023-08-12] MEDS: METOPROLOL TARTRATE 25 MG TABLET 75 MG PO (09:32)
[2023-08-12] MEDS: AMLODIPINE BESYLATE 5 MG TABLET 10 MG PO (09:32)
[2023-08-12] MEDS: LIOTHYRONINE SODIUM 5 MCG TABLET 10 MCG PO (09:32)
[2023-08-12] MEDS: ALLOPURINOL 100 MG TABLET PO (09:33)
[2023-08-12] MEDS: FERROUS SULFATE 325 MG TABLET PO (09:33)
[2023-08-12] MEDS: DORZOLAMIDE HCL 2%/TIMOLOL MALEATE 0.5% 200 DROP/10 ML BOTTLE OP (09:34)
[2023-08-12 11:23] LABS: Glucometer 195 mg/dL (74-106)
--- NOTE | 2023-08-12 11:47 | PM.DS1 ---
DS: Providers Provider Date of admission: 08/11/23 10:26 Primary care physician: ROCCO GALINDO, Consults: 08/11/23 07:00 Consult to Cardiology Routine Reason for consultation: Acute on Chronic Diastolic HF Has provider been notified: Yes Attending physician on discharge: Shaikh Michael Discharging clinician: Shaikh Michael Anticipated date of discharge: 08/12/23 DS: Diagnosis Discharge Diagnosis (1) Acute on chronic diastolic HF (heart failure): Assessment and plan: Presented with acute on chronic diastolic HF - diuresed with IV bumex drip. Appears euvolemic on exam today. Stable for discharge. (2) Orthostatic hypotension: Assessment and plan: Experiences orthostatic hypotension - on midodrine for it, recently started. Likely due to autonomic dysfunction from T2 DM. Outpatient follow up. Will benefit from outpatient tilt table testing (3) HTN (hypertension): Assessment and plan: Resistant, on multiple medications. C/w same meds. Defer to patients PCP, information director and physician relations representative to make necessary changes as needed Qualifiers: Hypertension type: primary hypertension Qualified Code(s): I10 - Essential (primary) hypertension (4) Hypothyroid: Assessment and plan: TSH at goal. C/w levothyroxine. (5) CAD (coronary artery disease): Assessment and plan: s/p CABD in 2020. C/w ASA, statin, BB. Qualifiers: Coronary Disease-Associated Artery/Lesion type: [place] artery [place] vs. transplanted heart: [place] heart Associated angina: without angina Qualified Code(s): I25.10 - Atherosclerotic heart disease of [place] coronary artery without angina pectoris (6) Anemia: Assessment and plan: Chronic, due to CKD , unchanged. Monitor. (7) Type 2 diabetes mellitus: Assessment and plan: C/w basaglar Qualifiers: Diabetes mellitus assistant terminal manager insulin use: with detention use Diabetes mellitus complication status: with kidney complications Diabetes mellitus complication detail: with chronic kidney disease Chronic kidney disease stage: stage 4 (severe) Qualified Code(s): E11.22 - Type 2 diabetes mellitus with diabetic chronic kidney disease; N18.4 - Chronic kidney disease, stage 4 (severe); Z79.4 - MCC (current) use of insulin (8) CKD stage 4 due to type 2 diabetes mellitus: Assessment and plan: Following Nephrology. Outpatient f/u DS: Summary Hospital Course Hospital Course: Patient presented to ED after she was asked by her information director for evidence of volume overload on 2D ECHO. Patient herself also reported exertional Dyspnea. She was admitted for acute on chronic diastolic HF, diuresed with IV bumex with good UO, improved volume status and is stable for discharge today. Resume previous dose of lasix that was recently decreased. She was also asked to follow up with PCP, cardiology and nephrology to possibly adjust her BP medications. Status at Discharge Functional status at discharge: independent ambulation Overall status at discharge: patient is back to baseline Time Spent with Patient Time attestation: Total time spent providing and/or coordinating discharge services: Time spent: greater than 30 minutes Exam Constitutional Vital Signs, click to edit/add: Last Vital Signs Temp 98.3 F 08/12/23 03:15 Pulse 79 08/12/23 09:56 Resp 16 08/12/23 03:15 BP 122/67 08/12/23 06:33 Pulse Ox 95 08/12/23 03:15 O2 Del Method Room Air 08/12/23 03:15 Documenting provider has reviewed patient's vital signs: yes Common normals: no apparent distress and oriented x3 General appearance: cooperative Respiratory Common normals: normal respiratory effort and clear to auscultation bilaterally Effort & inspection: able to speak in complete sentences Auscultation: clear to auscultation bilaterally Cardio Common normals: regular rate, S1 normal heart sound and S2 normal heart sound Rate: regular rate Heart sounds: S1 normal and S2 normal Extremity Common normals: no clubbing, cyanosis or edema Neuro Common normals: oriented x3, moves all extremities and no focal motor deficits Psych Common normals: mental status grossly normal, denies hallucinations, denies homicidal ideation and denies suicidal ideation DS: Data Data Completed and Pending Labs on day of discharge: Labs from last 24 hours 08/12/23 08/12/23 08/12/23 11:23 07:59 04:30 WBC 9.0 RBC 3.72 L Hgb 10.9 L Hct 33.3 L MCV 89.5 MCH 29.3 MCHC 32.7 RDW 13.8 Plt Count 208 MPV 10.7 Neut % (Auto) 63.7 Lymph % (Auto) 24.7 [place] % (Auto) 7.8 Eos % (Auto) 3.2 Baso % (Auto) 0.4 Neut # (Auto) 5.7 Lymph # (Auto) 2.2 [place] # (Auto) 0.7 Eos # (Auto) 0.3 Baso # (Auto) 0.0 Abs Immat Gran (auto) 0.02 Imm/Tot Granulo (auto) 0.2 Sodium 141 Potassium 4.3 Chloride 106 Carbon Dioxide 26.5 Anion Gap 12.8 BUN 34.0 H Creatinine 1.82 H Est GFR ( Amer) 33 L Est GFR (Non-Af Amer) 27 L BUN/Creatinine Ratio 18.7 Glucose 61 L Calcium 8.9 Total Bilirubin 0.4 AST 20 ALT 24 Alkaline Phosphatase 81 NT-Pro-B Natriuret Pep 1388.0 H* Total Protein 6.9 Albumin 2.6 L Globulin 4.3 Albumin/Globulin Ratio 0.6 POC Glucose 195 H 78 08/11/23 08/11/23 08/11/23 19:41 17:45 16:04 WBC RBC Hgb Hct MCV MCH MCHC RDW Plt Count MPV Neut % (Auto) Lymph % (Auto) [place] % (Auto) Eos % (Auto) Baso % (Auto) Neut # (Auto) Lymph # (Auto) [place] # (Auto) Eos # (Auto) Baso # (Auto) Abs Immat Gran (auto) Imm/Tot Granulo (auto) Sodium Potassium 3.9 Chloride Carbon Dioxide Anion Gap BUN Creatinine Est GFR ( Amer) Est GFR (Non-Af Amer) BUN/Creatinine Ratio Glucose Calcium Total Bilirubin AST ALT Alkaline Phosphatase NT-Pro-B Natriuret Pep Total Protein Albumin Globulin Albumin/Globulin Ratio POC Glucose 192 H 156 H 08/11/23 12:06 WBC RBC Hgb Hct MCV MCH MCHC RDW Plt Count MPV Neut % (Auto) Lymph % (Auto) [place] % (Auto) Eos % (Auto) Baso % (Auto) Neut # (Auto) Lymph # (Auto) [place] # (Auto) Eos # (Auto) Baso # (Auto) Abs Immat Gran (auto) Imm/Tot Granulo (auto) Sodium Potassium Chloride Carbon Dioxide Anion Gap BUN Creatinine Est GFR ( Amer) Est GFR (Non-Af Amer) BUN/Creatinine Ratio Glucose Calcium Total Bilirubin AST ALT Alkaline Phosphatase NT-Pro-B Natriuret Pep Total Protein Albumin Globulin Albumin/Globulin Ratio POC Glucose 145 H Discharge Plan Discharge Disposition: Home, Self-Care Condition: Good Discharge Medications: New liothyronine 5 mcg Tablet 10 mcg PO QD Qty: 60 11RF Continued amlodipine 10 mg tablet 10 mg PO DAILY bumetanide 2 mg tablet 2 mg PO BID doxazosin 4 mg tablet 4 mg PO Q8H hydralazine 50 mg tablet 50 mg PO TID isosorbide mononitrate 30 mg tablet extended release 24 hr 30 mg PO Q24H levothyroxine 50 mcg tablet 50 mcg PO Q24H metoprolol tartrate 50 mg tablet 75 mg PO Q12H midodrine 5 mg tablet 5 mg PO Q8H allopurinol 100 mg tablet 100 mg PO Q24H atorvastatin 40 mg tablet 40 mg PO DAILY dorzolamide-timolol 22.3-6.8 mg/mL drops 1 drp OPHTHALMIC (EYE) BID ergocalciferol (vitamin D2) 1,250 mcg (50,000 unit) capsule 50,000 unit PO .every other week Rx Instructions: every other Monday metolazone 2.5 mg tablet 2.5 mg PO .TWICE A WEEK ferrous sulfate 325 mg (65 mg iron) tablet 325 mg PO .EVERY OTHER DAY insulin glargine [Basaglar KwikPen U-100 Insulin] 100 unit/mL (3 mL) insulin pen SUBCUT potassium chloride 20 mEq tablet extended release 40 meq PO TID nitroglycerin 0.4 mg tablet, sublingual 0.4 mg sublingual Q5M PRN (Reason: chest pain) Activity: resume usual activities as tolerated Diet: advance to your usual diet Forms: Portal Instructions Follow Up Appointments: Follow up with PCP in 1 week Follow up with Cardiology, nephrology in 1-2 weeks
[2023-08-12] MEDS: INSULIN DETEMIR 300 UNIT/3 ML INSULN.PEN 10 UNIT SUBQ (13:46)
--- NOTE | 2023-08-14 15:20 | CM.DCFOLLOWU ---
Person spoke with: patient How are you feeling? well, short of breath when up and doing activity How is your pain? no pain Did you understand your discharge instructions? yes Do you have any questions about your discharge instructions? no Were you given any prescriptions at discharge? yes Were you able to get your prescriptions filled? yes Do you understand how to take your medications as ordered? yes Do you have any questions about your follow up appointment and do you plan to keep your follow up appointment? no questions, working on scheduling all her follow up apts. Is there anything else that you would like to discuss? Advised pt to return to ED if she has concerns about her shortness of breath/breathing Questions/Comments/Concerns/Other: N/A
== END 2023-08-12 14:42 | disposition home or self-care (01) | DRG 291 ==
LOC: ER 18:22 → ICU 20:28 → MS 08-11 15:37
PROVIDERS: Family Medicine; Registered Nurse; Admitting Provider Internal Medicine; Emergency Provider Emergency Medicine; PCP Family Medicine; Visit Provider Internal Medicine
DX: I13.0 Hypertensive heart and chronic kidney disease with heart failure and stage 1 through stage 4 chronic kidney disease, or unspecified chronic kidney disease (principal); I50.33 Acute on chronic diastolic (congestive) heart failure; E44.1 Mild protein-calorie malnutrition; N18.4 Chronic kidney disease, stage 4 (severe); I95.1 Orthostatic hypotension; Z95.1 Presence of aortocoronary bypass graft; I25.10 Atherosclerotic heart disease of native coronary artery without angina pectoris; E11.22 Type 2 diabetes mellitus with diabetic chronic kidney disease; Z90.49 Acquired absence of other specified parts of digestive tract; E11.36 Type 2 diabetes mellitus with diabetic cataract; E03.9 Hypothyroidism, unspecified; I27.21 Secondary pulmonary arterial hypertension; Z79.4 Long term (current) use of insulin; Z79.899 Other long term (current) drug therapy; D50.9 Iron deficiency anemia, unspecified; D63.1 Anemia in chronic kidney disease; Z68.30 Body mass index [BMI] 30.0-30.9, adult
CPT/HCPCS: 36415; 71045; 80048; 80053; 82948; 83735; 83880; 84132; 84436; 84443; 84481; 84484; 85025; 93005; 93306; 96365; 96366; 96372; 96375; 96376; 99285; G0378; J1940

== ENCOUNTER 2023-09-06 14:52 | Outpatient (OUT) | payer MEDICARE, OTHER, SELFPAY ==
--- NOTE | 2023-09-06 14:56 | US_ITS ---
[address] [address] Patient Name: MADY ESTRELLA MRN: [id number] date: 1950 Sex: F Assigned Patient Location: [place] Current Patient Location: [place] Accession/Order Number: [id number] Exam Date: 09/06/2023 15:00 Report Date: 09/09/2023 04:18 At the request of: SHEYLA LOVE Procedure: US thyroid EXAMINATION: US thyroid HISTORY: Nontoxic Multinodular Goiter E04.2 COMPARISON: Ultrasound thyroid 08/24/2022 FINDINGS: RIGHT LOBE: Heterogeneous echotexture containing a 1.4 cm TR 4 nodule within mid body. Lobe size: 4.2 x 1.7 x 1.4 cm LEFT LOBE: Heterogeneous echotexture containing a 0.5 cm TR 3 nodule within inferior pole and a 0.9 cm TR 2 nodule within mid body. Lobe size: 3.9 x 2.1 x 1.4 cm ISTHMUS: Heterogeneous echotexture. Thickness: 3 mm US/US thyroid IMPRESSION: 1. Heterogeneous thyroid gland containing several nodules. Follow-up ultrasound evaluation one year is recommended. TR4 (moderately suspicious): If > 1.0 cm, follow-up ultrasound in 1, 2, 3, and 5 years. If > 1.5 cm, fine needle aspiration (FNA). TR3 (mildly suspicious): > 1.5 cm, follow-up ultrasound in 1, 3, and 5 years. > 2.5 cm, fine needle aspiration. TI-RADS 2: Benign nodules. Noticeably benign pattern (0% risk of malignancy) Electronically authenticated by: RENETTA RENEE Date: 09/09/2023 04:18
== END 2023-09-06 14:53 | disposition home or self-care (01) ==
LOC: US 14:52
PROVIDERS: PCP Family Medicine; Visit Provider Otolaryngology
DX: E04.2 Nontoxic multinodular goiter (principal)
CPT/HCPCS: 76536

== ENCOUNTER 2023-09-19 09:10 | Outpatient (OUT) | payer MEDICARE, OTHER, SELFPAY ==
--- OUTSIDE RECORDS SUMMARY | 2023-09-19 09:19 | XMS_ITS | CCD ---
Author Organization [facility] Care Team Providers Care Business Insurance Agent Name Role Phone JOHN PERDOMO Referring Unavailable PERDOMO, JOHN Primary Care Unavailable MOUKARBELKARTHIK V Attending Unavailable MOUKARBEL, KARTHIK Resendiz Admitting Unavailable Mary Grace, Geneva Unavailable JOSIE, DR JOHN Mcdonough Primary Care Unavailable BOBBY, CARMINA Consulting Unavailable BOBBY, CARMIAN Admitting Unavailable BOBBY, CARMINA Attending Unavailable PERDOMO, [...] Unavailable PERDOMO, DR JOHN Mcdonough Consulting Unavailable NEFCYBETSY Consulting Unavailable PERDOMO, DR JOHN Mcdonough Primary [...] Attending Unavailable MARY GRACE, GENEVA Consulting Unavailable BOBBY, CARMINA Attending Unavailable MOUKARBEL, KARTHIK Attending Unavailable MOUKARBEL, KARTHIK Attending Unavailable MOUKARBEL, KARTHIK Attending Unavailable Allergies Allergy Classification Reported Allergen(s) Allergy Type Date of Onset Reaction(s) Facility (2 sources) Erythromycin; Translations: [ERYTHROMYCIN] Drug Allergy 1 [facility]ository (2 sources) HYDROmorphone Drug Allergy 1 [facility] (2 sources) Penicillins; Translations: [PENICILLINS] Drug allergy (disorder) 1 [facility] (20 sources) Erythromycin Drug Allergy anaphylaxis [facility] [employer] Other (20 sources) HYDROmorphone; Translations: [HYDROMORPHONE] Drug Allergy 2 Unknown [facility] (20 sources) Penicillin Drug Allergy Unknown [facility] Other (20 sources) Penicillin G Benzathine Drug allergy hives [facility] [employer] Other (2 sources) Erythromycin; Translations: [ERYTHROMYCIN BASE] Drug Allergy 0 [facility] (1 source) Penicillin Drug Allergy [facility] (4 sources) Spironolactone; Translations: [SPIRONOLACTONE] Drug Allergy 4 rash [facility] Medications Current Medications Medication Drug Class(es) Dates [...] mg/ml / timolol 5 mg/ml ophthalmic solution (3 sources) Carbonic Anhydrase Inhibitor, beta-Adrenergic Ranjit Dorzolamide [...] every week Vitamin D (Ergocalciferol) 1.25 MG (50798 UT) TAKE 1 CAPSULE BY MOUTH ONE TIME PER WEEK for 84 Active take 1 capsule by mo uth every other week Ergocalciferol 1.25 MG (46082 UT) 1 caps ule Orally Q2 week [...] Active isosorbide dinitrate 30 mg oral tablet (6 sources) Nitrate Vasodilator take 1 tablet by [...] disease (5 sources) Atherosclerotic heart disease of [place] coronary artery without angina pectoris; Translations: [Atherosclerotic heart disease of [place] coronary artery with other forms of angina pectoris] Onset: 2 Chronic Coronary atherosclerosis and other heart disease (2 sources) Presence of aortocoronary bypass graft; Translations: [Presence of aortocoronary bypass graft] Onset: 4 Episodic Deficiency and other anemia (20 sources) Anemia [...] Classification Problem Date Documented Da te Episodic/Chronic Other bone disease and musculoskeletal deformities (1 [...] Value Interpretation Reference Range Facility Office Visiton 09-04-2023 Follow-up visit [id number] Claudia Estrella 1950 Provider Department Center 09/04/2023 KARTHIK MACKAY Family History Problem Relation Age of Onset Heart attack Mother Heart failure Mother Heart attack Father Family Status - Relation Status Age at Mother Father Level of Service:26050 NE OFFICE/OUTPATIENT ESTABLISHED LOW MDM 20 MIN Normal [facility] 36on 08-09-2023 36 I reviewed her echocardiogram from today and it shows evidence of significant volume overload. 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 If she is not responding to pills then we might need to admit her for intravenous diuretic therapy. Normal [facility] Telephoneon 08-09-2023 Telephone [id number] Claudia Estrella 1950 Provider Department Center 08/09/2023 KARTHIK MACKAY [facility] Family History Problem Relation Age of Onset Heart attack Mother Heart failure Mother Heart attack Father Family Status - Relation Status Age at Mother Father Normal [facility] Office Visiton 08-04-2023 Follow-up visit [id number] Claudia Estrella 1950 Date Provider Department Center 08/04/2023 367-KARTHIK FISH [facility] Family History Problem Relation Age of Onset Heart attack Mother Heart failure Mother Heart attack Father Family Status - Relation Status Age at Mother Father Level of Service:18341 NE OFFICE/OUTPATIENT ESTABLISHED MOD MDM 30 MIN Normal [facility] Office Visiton 02-24-2023 Follow-up visit [id number] Claudia Estrella 1950 F Date Provider Department Center 02/24/2023 Real-CARMINA ROSALES AD[facility] Family History Problem Relation Age of Onset Heart attack Mother Heart failure Mother Heart attack Father Family Status - Relation Status Age at Mother Father Level of Service:38862 NE OFFICE/OUTPATIENT ESTABLISHED LOW MDM 20-29 MIN [facility] Orders Onlyon 12-09-2022 Orders Only [id number] Claudia Estrella 1950 Date Provider Department Center 12/09/2022 FRANCIS MUÑOZ AD[facility] Family History Problem Relation Age of Onset Heart attack Mother Heart failure Mother Heart attack Father Family Status - Relation Status Age at Mother Father Normal [facility] 36on 10-26-2022 36 [facility] lab called to report a critical BNP of 1458. Normal [facility] BNPon 10-26-2022 Natriuretic peptide B (Bld) [Mass/Vol] 1458.0 pg/mL Critically high <=900.0 [facility] Comment on above: Performed By: #### L IPID, TSH, FT3 #### [facility] [address] [address] [address] Andrey Hargrove CBC AUTO DIFFon 10-26-2022 BASO # 0.1 103/ul Normal 0.0-0.1 [facility] Comment on above: Performed By: #### V ITAD, FETIBC, FERR #### [facility] [address] [place] [address] Dr. Andrey Hargrove Basophils/100 WBC (Bld) 0.7 % Normal 0.2-2.0 [facility] Comment on above: Performed By: #### V ITAD, FETIBC, FERR #### [facility] [address] [place] [address] Dr. Andrey Hargrove EO # 0.4 103/ul Normal 0.0-0.7 [facility] Comment on above: Performed By: #### V ITAD, FETIBC, FERR #### [facility] [address] [place] [address] Dr. Andrey Hargrove Eosinophils/100 WBC (Bld) 4.6 % Normal 0.9-7.0 [facility] Comment on above: Performed By: #### V ITAD, FETIBC, FERR #### [facility] [address] [place] [address] Dr. Andrey Hargrove Erythrocyte distribution width (RBC) [Ratio] 13.7 % Normal 11.0-15.0 [facility] Comment on above: Performed By: #### V ITAD, FETIBC, FERR #### [facility] [address] [place] [address] Dr. Andrey Hargrove Hematocrit (Bld) [Volume fraction] 35.5 % Critically low 36.0-48.0 [facility] Comment on above: Performed By: #### V ITAD, FETIBC, FERR #### [facility] [address] [place] [address] Dr. Andrey Hargrove Hemoglobin (Bld) [Mass/Vol] 12.0 g/dL Normal 12.0-16.0 [facility] Comment on above: Performed By: #### V ITAD, FETIBC, FERR #### [facility] [address] [place] [address] Dr. Andrey Hargrove IG # 0.02 10e3/ul Normal 0.00-0.03 [facility] Comment on above: Performed By: #### V ITAD, FETIBC, FERR #### [facility] [address] [place] [address] Dr. Andrey Hargrove IG % 0.2 % Normal 0.0-0.5 [facility] Comment on above: Performed By: #### V ITAD, FETIBC, FERR #### [facility] [address] [place] [address] Dr. Andrey Hargrove LYMPH # 1.5 103/ul Normal 1.2-3.8 [facility] Comment on above: Performed By: #### V ITAD, FETIBC, FERR #### [facility] [address] [place] [address] Dr. Andrey Hargrove Lymphocytes/100 WBC (Bld) 18.1 % Critically low 20.5-60.0 [facility] Comment on above: Performed By: #### V ITAD, FETIBC, FERR #### [facility] [address] [place] [address] Dr. Andrey Hargrove MANUAL DIFF REQ NO Normal [facility] Comment on above: Performed By: #### V ITAD, FETIBC, FERR #### [facility] [address] [place] [address] Dr. Andrey Hargrove MCH (RBC) [Entitic mass] 29.3 pg Normal 26.7-34.0 [facility] Comment on above: Performed By: #### V ITAD, FETIBC, FERR #### [facility] [address] [place] [address] Dr. Andrey Hargrove MCHC (RBC) [Mass/Vol] 33.8 g/dL Normal 29.9-35.2 [facility] Comment on above: Performed By: #### V ITAD, FETIBC, FERR #### [facility] [address] [place] [address] Dr. Andrey Hargrove MCV (RBC) [Entitic vol] 86.8 fL Normal 81.0-99.0 [facility] Comment on above: Performed By: #### V ITAD, FETIBC, FERR #### [facility] [address] [place] [address] Dr. Andrey Hargrove MONO # 0.7 103/ul Normal 0.3-0.8 [facility] Comment on above: Performed By: #### V ITAD, FETIBC, FERR #### [facility] [address] [place] [address] Dr. Andrey Hargrove Monocytes/100 WBC (Bld) 7.9 % Normal 1.7-12.0 [facility] Comment on above: Performed By: #### V ITAD, FETIBC, FERR #### [facility] [address] [place] [address] Dr. Andrey Hargrove NEUT # 5.7 103/ul Normal 1.4-6.5 [facility] Comment on above: Performed By: #### V ITAD, FETIBC, FERR #### [facility] [address] [place] [address] Dr. Andrey Hargrove Neutrophils/100 WBC (Bld) 68.5 % Normal 43.0-75.0 [facility] Comment on above: Performed By: #### V ITAD, FETIBC, FERR #### [facility] [address] [place] [address] Dr. Andrey Hargrove Platelet mean volume (Bld) [Entitic vol] 10.4 fL Normal 9.5-13.5 [facility] Comment on above: Performed By: #### V ITAD, FETIBC, FERR #### [facility] [address] [place] [address] Dr. Andrey Hargrove PLT 204 103/ul Normal 150-450 [facility] Comment on above: Performed By: #### V ITAD, FETIBC, FERR #### [facility] [address] [place] [address] Dr. Andrey Hargrove RBC 4.09 106/ul Critically low 4.20-5.40 [facility] Comment on above: Performed By: #### V ITAD, FETIBC, FERR #### [facility] [address] [place] [address] Dr. Andrey Hargrove WBC 8.3 103/ul Normal 4.0-11.0 [facility] Comment on above: Performed By: #### V ITAD, FETIBC, FERR #### [facility] [address] [address] [address] Andrey Hargrove PROF CHEM 8 (BAS METB)on Anion gap [Moles/Vol] 11.1 mmol/L Normal Th [facility] Comment on above: Performed By: #### L IPID, TSH, FT3 #### [facility] [address] [place] [address] Dr. Andrey Hargrove Calcium [Mass/Vol] 9.2 mg/dL Normal 8.5-10.1 [facility] Comment on above: Performed By: #### L IPID, TSH, FT3 #### [facility] [address] [place] [address] Dr. Andrey Hargrove Chloride [Moles/Vol] 102 mmol/L Normal 98-107 [facility] Comment on above: Performed By: #### L IPID, TSH, FT3 #### [facility] [address] [place] [address] Dr. Andrey Hargrove CO2 [Moles/Vol] 31.2 mmol/L Normal 21.0-32.0 [facility] Comment on above: Performed By: #### L IPID, TSH, FT3 #### [facility] [address] [place] [address] Dr. Andrey Hargrove Creatinine [Mass/Vol] 1.79 mg/dL Critically high 0.55-1.02 [facility] Comment on above: Performed By: #### L IPID, TSH, FT3 #### [facility] [address] [place] [address] Dr. Andrey Hargrove EGFR-AF [place] 34 mL/min/1.73m2 Critically low >=60 [facility] Comment on above: Performed By: #### L IPID, TSH, FT3 #### [facility] [address] [place] [address] Dr. Andrey Hargrove EGFR-NON AF [place] 28 mL/min/1.73m2 Critically low >=60 [facility] Comment on above: Performed By: #### L IPID, TSH, FT3 #### [facility] [address] [address] [address] Andrey Hargrove Glucose [Mass/Vol] 148 mg/dL Critically high 74-106 [facility] Comment on above: Performed By: #### L IPID, TSH, FT3 #### [facility] [address] [place] [address] Dr. Andrey Hargrove Potassium [Moles/Vol] 3.3 mmol/L Critically low 3.5-5.1 [facility] Comment on above: Performed By: #### L IPID, TSH, FT3 #### [facility] [address] [address] [address] Andrey Hargrove Sodium [Moles/Vol] 141 mmol/L Normal 136-145 [facility] Comment on above: Performed By: #### L IPID, TSH, FT3 #### [facility] [address] [place] [address] Dr. Andrey Hargrove Urea nitrogen [Mass/Vol] 41.0 mg/dL Critically high 7.0-18.0 [facility] Comment on above: Performed By: #### L IPID, TSH, FT3 #### [facility] [address] [address] [address] Andrey Hargrove Urea nitrogen/Creatinine [Mass ratio] 22.9 mg/mg Normal [facility] Comment on above: Performed By: #### L IPID, TSH, FT3 #### [facility] [address] [place] [address] Dr. Andrey Hargrove Office Visiton 09-12-2022 Follow-up visit [id number] Claudia Estrella 1950 F Date Provider Department Center 09/12/2022 KARTHIK MACKAY [facility] Family History Problem Relation Age of Onset Heart attack Mother Heart failure Mother Heart attack Father Family Status - Relation Status Age at Mother Father Level of Service:99640 NE OFFICE/OUTPATIENT ESTABLISHED MOD MDM 30-39 MIN Reason for Visit and Comments: Coronary Artery Disease [187] Hypertension [825242] Congestive Heart Failure [127] Normal [facility] PTH INTACTon 08-24-2022 PTH, Intact 44 pg/mL Normal 15-65 [facility] Comment on above: Performed By: #### V ITAD, FETIBC, FERR #### [facility] [address] [address] [address] Andrey Hargrove US THYROIDon 08-24-2022 US [...] RENETTA RENEE Date: 2022-08-24 16:16 Normal [facility] FERRITINon 08-23-2022 Ferritin [Mass/Vol] 114.0 ng/mL Normal 8.0-252.0 [facility] Comment on above: Performed By: #### V ITAD, FETIBC, FERR #### [facility] [address] [address] [address] Andrey Hargrove HEMOGRAM AND PLATELon 2022 Hematocrit (Bld) [Volume fraction] 34.9 % Critically low 36.0-48.0 [facility] Comment on above: Performed By: #### V ITAD, FETIBC, FERR #### [facility] [address] [place], [place] [address] Dr. Andrey Hargrove Hemoglobin (Bld) [Mass/Vol] 11.8 g/dL Critically low 12.0-16.0 [facility] Comment on above: Performed By: #### V ITAD, FETIBC, FERR #### [facility] [address] [place] [address] Dr. Andrey Hargrove MCH (RBC) [Entitic mass] 28.6 pg Normal 26.7-34.0 [facility] Comment on above: Performed By: #### V ITAD, FETIBC, FERR #### [facility] [address] [place] [address] Dr. Andrey Hargrove MCHC (RBC) [Mass/Vol] 33.8 g/dL Normal 29.9-35.2 [facility] Comment on above: Performed By: #### V ITAD, FETIBC, FERR #### [facility] [address] [place] [address] Dr. Andrey Hargrove MCV (RBC) [Entitic vol] 84.7 fL Normal 81.0-99.0 [facility] Comment on above: Performed By: #### V ITAD, FETIBC, FERR #### [facility] [address] [place] [address] Dr. Andrey Hargrove PLT 215 103/ul Normal 150-450 [facility] Comment on above: Performed By: #### V ITAD, FETIBC, FERR #### [facility] [address] [place] [address] Dr. Andrey Hargrove RBC 4.12 106/ul Critically low 4.20-5.40 [facility] Comment on above: Performed By: #### V ITAD, FETIBC, FERR #### [facility] [address] [place] [address] Dr. Andrey Hargrove WBC 9.2 103/ul Normal 4.0-11.0 [facility] Comment on above: Performed By: #### V ITAD, FETIBC, FERR #### [facility] [address] [place] [address] Dr. Andrey Hargrove IRON AND TIBCon 08-23-2022 % SATURATION 15.4 % Normal [facility] Comment on above: Performed By: #### V ITAD, FETIBC, FERR #### [facility] [address] [place] [address] Dr. Andrey Hargrove Iron [Mass/Vol] 44.0 ug/dL Critically low 50.0-170.0 [facility] Comment on above: Performed By: #### V ITAD, FETIBC, FERR #### [facility] [address] [place] [address] Dr. Andrey Hargrove TIBC DIRECT 286.0 ug/dL Normal 250.0-450.0 [facility] Comment on above: Performed By: #### V ITAD, FETIBC, FERR #### [facility] [address] [place] [address] Dr. Andrey Hargrove MAGNESIUMon 08-23-2022 Magnesium [Mass/Vol] 2.1 mg/dL Normal 1.8-2.4 [facility] Comment on above: Performed By: #### L IPID, TSH, FT3 #### [facility] [address] [place] [address] Dr. Andrey Hargrove RENAL FUNCTION PANELon 08-23 Albumin [Mass/Vol] 3.3 g/dL Critically low 3.4-5.[address] [facility] Comment on above: Performed By: #### L IPID, TSH, FT3 #### [facility] [address] [place] [address] Dr. Andrey Hargrove Calcium [Mass/Vol] 9.4 mg/dL Normal 8.5-10.1 [facility] Comment on above: Performed By: #### L IPID, TSH, FT3 #### [facility] [address] [place] [address] Dr. Andrey Hargrove Chloride [Moles/Vol] 103 mmol/L Normal 98-107 [facility] Comment on above: Performed By: #### L IPID, TSH, FT3 #### [facility] [address] [place] [address] Dr. Andrey Hargrove CO2 [Moles/Vol] 26.8 mmol/L Normal 21.0-32.0 [facility] Comment on above: Performed By: #### L IPID, TSH, FT3 #### [facility] [address] [place] [address] Dr. Andrey Hargrove Creatinine [Mass/Vol] 1.94 mg/dL Critically high 0.55-1.02 [facility] Comment on above: Performed By: #### L IPID, TSH, FT3 #### [facility] [address] [address] [address] Andrey Hargrove EGFR-AF [place] 31 mL/min/1.73m2 Critically low >=60 [facility] Comment on above: Performed By: #### L IPID, TSH, FT3 #### [facility] [address] [place] [address] Dr. Andrey Hargrove EGFR-NON AF [place] 25 mL/min/1.73m2 Critically low >=60 [facility] Comment on above: Performed By: #### L IPID, TSH, FT3 #### [facility] [address] [place] [address] Dr. Andrey Hargrove Glucose [Mass/Vol] 166 mg/dL Critically high 74-106 [facility] Comment on above: Performed By: #### L IPID, TSH, FT3 #### [facility] [address] [place] [address] Dr. Andrey Hargrove Phosphate [Mass/Vol] 4.6 mg/dL Normal 2.6-4.7 [facility] Comment on above: Performed By: #### L IPID, TSH, FT3 #### [facility] [address] [place] [address] Dr. Andrey Hargrove Potassium [Moles/Vol] 4.3 mmol/L Normal 3.5-5.1 [facility] Comment on above: Performed By: #### L IPID, TSH, FT3 #### [facility] [address] [place] [address] Dr. Andrey Hargrove Sodium [Moles/Vol] 137 mmol/L Normal 136-145 [facility] Comment on above: Performed By: #### L IPID, TSH, FT3 #### [facility] [address] [place] [address] Dr. Andrey Hargrove Urea nitrogen [Mass/Vol] 39.0 mg/dL Critically high 7.0-18.0 [facility] Comment on above: Performed By: #### L IPID, TSH, FT3 #### [facility] [address] [place] [address] Dr. Andrey Hargrove UA RANDOM W/MICROSCOPICon BACTERIA NONE SEEN Normal NONE SEEN [facility] Comment on above: Performed By: #### V ITAD, FETIBC, FERR #### [facility] [address] [place] [address] Dr. Andrey Hargrove Bilirubin Ql (U) Negative Normal NEGATIVE [facility] [place] [facility] Comment on above: Performed By: #### V ITAD, FETIBC, FERR #### [facility] [address] [place] [address] Dr. Andrey Hargrove CAST NONE SEEN Normal NONE SEEN [facility] Comment on above: Performed By: #### V ITAD, FETIBC, FERR #### [facility] [address] [place] [address] Dr. Andrey Hargrove Clarity (U) CLEAR Normal CLEAR [facility] Comment on above: Performed By: #### V ITAD, FETIBC, FERR #### [facility] [address] [place] [address] Dr. Andrey Hargrove Color (U) LT. YELLOW Normal YELLOW [facility] Comment on above: Performed By: #### V ITAD, FETIBC, FERR #### [facility] [address] [place] [address] Dr. Andrey Hargrove Crystals LM Nom (Urine sed) NONE SEEN Normal NONE SEEN [facility] Comment on above: Performed By: #### V ITAD, FETIBC, FERR #### [facility] [address] [place] [address] Dr. Andrey Hargrove Epithelial cells LM Ql (Urine sed) RARE Normal NONE SEEN /RARE [facility] Comment on above: Performed By: #### V ITAD, FETIBC, FERR #### [facility] [address] [address] [address] Andrey Hargrove Glucose Ql (U) Negative Normal NEGATIVE [facility] Comment on above: Performed By: #### V ITAD, FETIBC, FERR #### [facility] [address] [address] [address] Andrey Hargrove Hemoglobin Ql (U) Negative Normal NEGATIVE [facility] Comment on above: Performed By: #### V ITAD, FETIBC, FERR #### [facility] [address] [place] [address] Dr. Andrey Hargrove Ketones Ql (U) Negative Normal NEGATIVE [facility] Comment on above: Performed By: #### V ITAD, FETIBC, FERR #### [facility] [address] [place] [address] Dr. Andrey Hargrove LEUKOCYTES Negative Normal NEGATIVE [facility] Comment on above: Performed By: #### V ITAD, FETIBC, FERR #### [facility] [address] [place] [address] Dr. Andrey Hargrove MUCOUS NONE SEEN Normal NONE SEEN [facility] Comment on above: Performed By: #### V ITAD, FETIBC, FERR #### [facility] [address] [place] [address] Dr. Andrey Hargrove Nitrite Ql (U) Negative Normal NEGATIVE [facility] Comment on above: Performed By: #### V ITAD, FETIBC, FERR #### [facility] [address] [address] [address] Andrey Hargrove pH (U) 6.5 [pH] Normal 5-9 [facility] Comment on above: Performed By: #### V ITAD, FETIBC, FERR #### [facility] [address] [place] [address] Dr. Andrey Hargrove RBC NONE SEEN Abnormal 0-2 [facility] Comment on above: Performed By: #### V ITAD, FETIBC, FERR #### [facility] [address] [place] [address] Dr. Andrey Hargrove SPEC GRAVITY 1.010 Normal 1.005-<=1.02 5 [facility] Comment on above: Performed By: #### V ITAD, FETIBC, FERR #### [facility] [address] [place] [address] Dr. Andrey Hargrove UA PROTEIN 30 mg/dl Abnormal NEGATIVE/ TRACE [facility] Comment on above: Performed By: #### V ITAD, FETIBC, FERR #### [facility] [address] [place] [address] Dr. Andrey Hargrove Urobilinogen Qn (U) 0.2 {Kelly'U}/dL Normal 0.2 - 1. 0 [facility] Comment on above: Performed By: #### V ITAD, FETIBC, FERR #### [facility] [address] [place] [address] Dr. Andrey Hargrove WBC NONE SEEN Normal NONE SEEN [facility] Comment on above: Performed By: #### V ITAD, FETIBC, FERR #### [facility] [address] [place] [address] Dr. Andrey Hargrove URIC ACID SERUMon 08-23-2022 Urate [Mass/Vol] 5.8 mg/dL Normal 2.6-6.0 [facility] Comment on above: Performed By: #### L IPID, TSH, FT3 #### [facility] [address] [place] [address] Dr. Andrey Hargrove VITAMIN D 25 OHon 08-23-2022 VIT D 25-OH 69.0 ng/mL Normal [facility] Comment on above: Performed By: #### V ITAD, FETIBC, FERR #### [facility] [address] [place] [address] Dr. Andrey Hargrove VIT D RANGES SEE BELOW Normal [facility] Comment on above: Result Comment: <20 ng/mL Vit D deficient 20 - <30 ng/mL Vit D insufficient 30 - 100 ng/mL Vit D sufficient >100 ng/mL Potential Toxicity Performed By: #### V ITAD, FETIBC, FERR #### [facility] [address] [place] [address] Dr. Andrey Hargrove ECHOCARDIO M/2D COMPLETEon 1 08-14-2021 ECHOCARDIO M/2D COMPLETE Patient: CLAUDIA ESTRELLA Exam Date: 06/13/2022 : 1950 Gender:F Ordering : DR KARTHIK FISH M.D. Admission #: [id number] Family : Order #: [id number] CLICK HERE TO VIEW EXAM ECHOCARDIOGRAM REPORT [...] Fish M.D. on 06/14/2022 at 17:50 Normal [facility] BNPon 06-10-2022 Natriuretic peptide B (Bld) [Mass/Vol] 4197.0 pg/mL Critically high <=900.0 [facility] Comment on above: Performed By: #### L IPID, TSH, FT3 #### [facility] [address] [address] [address] Andrey Hargrove PROF CHEM 8 (BAS METB)on Anion gap [Moles/Vol] 10.4 mmol/L Normal [facility] Comment on above: Performed By: #### V ITAD, FETIBC, FERR #### [facility] [address] [place] [address] Dr. Andrey Hargrove Calcium [Mass/Vol] 9.4 mg/dL Normal 8.5-10.1 [facility] Comment on above: Performed By: #### V ITAD, FETIBC, FERR #### [facility] [address] [place] [address] Dr. Andrey Hargrove Chloride [Moles/Vol] 99 mmol/L Normal 98-107 [facility] Comment on above: Performed By: #### V ITAD, FETIBC, FERR #### [facility] [address] [place] [address] Dr. Andrey Hargrove CO2 [Moles/Vol] 33.8 mmol/L Critically high 21.0-32.0 [facility] Comment on above: Performed By: #### V ITAD, FETIBC, FERR #### [facility] [address] [place] [address] Dr. Andrey Hargrove Creatinine [Mass/Vol] 2.09 mg/dL Critically high 0.55-1.02 [facility] Comment on above: Performed By: #### V ITAD, FETIBC, FERR #### [facility] [address] [place] [address] Dr. Andrey Hargrove EGFR-AF [place]ER 28 mL/min/1.73m2 Critically low >=60 [facility] Comment on above: Performed By: #### V ITAD, FETIBC, FERR #### [facility] [address] [place] [address] Dr. Andrey Hargrove EGFR-NON AF [place]ER 23 mL/min/1.73m2 Critically low >=60 [facility] Comment on above: Performed By: #### V ITAD, FETIBC, FERR #### [facility] [address] [place] [address] Dr. Andrey Hargrove Glucose [Mass/Vol] 75 mg/dL Normal 74-106 [facility] Comment on above: Performed By: #### V ITAD, FETIBC, FERR #### [facility] [address] [place] [address] Dr. Andrey Hargrove Potassium [Moles/Vol] 3.2 mmol/L Critically low 3.5-5.1 [facility] Comment on above: Performed By: #### V ITAD, FETIBC, FERR #### [facility] [address] [place] [address] Dr. Andrey Hargrove Sodium [Moles/Vol] 140 mmol/L Normal 136-145 [facility] Comment on above: Performed By: #### V ITAD, FETIBC, FERR #### [facility] [address] [place] [address] Dr. Andrey Hargrove Urea nitrogen [Mass/Vol] 61.0 mg/dL Critically high 7.0-18.0 [facility] Comment on above: Performed By: #### V ITAD, FETIBC, FERR #### [facility] [address] [place] [address] Dr. Andrey Hargrove Urea nitrogen/Creatinine [Mass ratio] 29.2 mg/mg Normal [facility] Comment on above: Performed By: #### V ITAD, FETIBC, FERR #### [facility] [address] [place] [address] Dr. Andrey Hargrove BNPon 06-02-2022 Natriuretic peptide B (Bld) [Mass/Vol] 9365.0 pg/mL Critically high <=900.0 [facility] Comment on above: Performed By: #### V ITAD, FETIBC, FERR #### [facility] [address] [place] [address] Dr. Andrey Hargrove PROF CHEM 8 (BAS METB)on Anion gap [Moles/Vol] 10.7 mmol/L Normal [facility] Comment on above: Performed By: #### V ITAD, FETIBC, FERR #### [facility] [address] [address] [address] Andrey Hargrove Calcium [Mass/Vol] 9.1 mg/dL Normal 8.5-10.1 [facility] Comment on above: Performed By: #### V ITAD, FETIBC, FERR #### [facility] [address] [address] [address] Andrey Hargrove Chloride [Moles/Vol] 98 mmol/L Normal 98-107 [facility] Comment on above: Performed By: #### V ITAD, FETIBC, FERR #### [facility] [address] [address] [address] Andrey Hargrove CO2 [Moles/Vol] 29.4 mmol/L Normal 21.0-32.0 [facility] Comment on above: Performed By: #### V ITAD, FETIBC, FERR #### [facility] [address] [place] [address] Dr. Andrey Hargrove Creatinine [Mass/Vol] 2.44 mg/dL Critically high 0.55-1.02 [facility] Comment on above: Performed By: #### V ITAD, FETIBC, FERR #### [facility] [address] [address] [address] Andrey Hargrove EGFR-AF [place] 24 mL/min/1.73m2 Critically low >=60 [facility] Comment on above: Performed By: #### V ITAD, FETIBC, FERR #### [facility] [address] [address] [address] Andrey Hargrove EGFR-NON AF [place] 20 mL/min/1.73m2 Critically low >=60 [facility] Comment on above: Performed By: #### V ITAD, FETIBC, FERR #### [facility] [address] [place] [address] Dr. Andrey Hargrove Glucose [Mass/Vol] 135 mg/dL Critically high 74-106 [facility] Comment on above: Performed By: #### V ITAD, FETIBC, FERR #### [facility] [address] [address] [address] Andrey Hargrove Potassium [Moles/Vol] 4.1 mmol/L Normal 3.5-5.1 [facility] Comment on above: Performed By: #### V ALTAGRACIA VASQUESIBC, FERR #### [facility] [address] [address] [address] Andrey Hargrove Sodium [Moles/Vol] 134 mmol/L Critically low 136-145 [facility] Comment on above: Performed By: #### V ITSHAQ FETIBC, FERR #### [facility] [address] [address] [address] Andrey Hargrove Urea nitrogen [Mass/Vol] 81.0 mg/dL Critically high 7.0-18.0 [facility] Comment on above: Performed By: #### V JOSE VASQUESC, FERR #### [facility] [address] [address] [address] Andrey Hargrove Urea nitrogen/Creatinine [Mass ratio] 33.2 mg/mg Normal [facility] Comment on above: Performed By: #### V CAPRICE, ALTAGRACIAIBC, FERR #### [facility] [address] [address] [address] Andrey Hargrove XR ELBOW RT MIN [...] BETSY LAZARO Date: 2022-06-01 17:24 Normal [facility] RENAL FUNCTION PANELon 05-27 Albumin [Mass/Vol] 3.4 g/dL Normal 3.4-5.0 [facility] Comment on above: Performed By: #### L IPID, TSH, FT3 #### [facility] [address] [place] [address] Dr. Andrey Hargrove Calcium [Mass/Vol] 9.1 mg/dL Normal 8.5-10.1 [facility] Comment on above: Performed By: #### L IPID, TSH, FT3 #### [facility] [address] [place] [address] Dr. Andrey Hargrove Chloride [Moles/Vol] 99 mmol/L Normal 98-107 [facility] Comment on above: Performed By: #### L IPID, TSH, FT3 #### [facility] [address] [place] [address] Dr. Andrey Hargrove CO2 [Moles/Vol] 30.9 mmol/L Normal 21.0-32.0 [facility] Comment on above: Performed By: #### L IPID, TSH, FT3 #### [facility] [address] [place] [address] Dr. Andrey Hargrove Creatinine [Mass/Vol] 2.24 mg/dL Critically high 0.55-1.02 [facility] Comment on above: Performed By: #### L IPID, TSH, FT3 #### [facility] [address] [place] [address] Dr. Andrey Hargrove EGFR-AF [place] 26 mL/min/1.73m2 Critically low >=60 [facility] Comment on above: Performed By: #### L IPID, TSH, FT3 #### [facility] [address] [place] [address] Dr. Andrey Hargrove EGFR-NON AF [place] 22 mL/min/1.73m2 Critically low >=60 [facility] Comment on above: Performed By: #### L IPID, TSH, FT3 #### [facility] [address] [place] [address] Dr. Andrey Hargrove Glucose [Mass/Vol] 94 mg/dL Normal 74-106 [facility] Comment on above: Performed By: #### L IPID, TSH, FT3 #### [facility] [address] [address] [address] Andrey Hargrove Phosphate [Mass/Vol] 4.7 mg/dL Normal 2.6-4.7 [facility] Comment on above: Performed By: #### L IPID, TSH, FT3 #### [facility] [address] [place] [address] Dr. Andrey Hargrove Potassium [Moles/Vol] 3.5 mmol/L Normal 3.5-5.1 [facility] Comment on above: Performed By: #### L IPID, TSH, FT3 #### [facility] [address] [place] [address] Dr. Andrey Hargrove Sodium [Moles/Vol] 136 mmol/L Normal 136-145 [facility] Comment on above: Performed By: #### L IPID, TSH, FT3 #### [facility] [address] [address] [address] Andrey Hargrove Urea nitrogen [Mass/Vol] 72.0 mg/dL Critically high 7.0-18.0 [facility] Comment on above: Performed By: #### L IPID, TSH, FT3 #### [facility] [address] [place] [address] Dr. Andrey Hargrove PTH INTACTon 05-24-2022 PTH, Intact 24 pg/mL Normal 15-65 [facility] Comment on above: Performed By: #### L IPID, TSH, FT3 #### [facility] [address] [place] [address] Dr. Andrey Hargrove FERRITINon 05-23-2022 Ferritin [Mass/Vol] 190.0 ng/mL Normal 8.0-252.0 [facility] Comment on above: Performed By: #### L IPID, TSH, FT3 #### [facility] [address] [place] [address] Dr. Andrey Hargrove FREE T3on 05-23-2022 FREE T3 1.96 pg/mlL Critically low 2.18-3.98 [facility] Comment on above: Performed By: #### L IPID, TSH, FT3 #### [facility] [address] [place] [address] Dr. Andrey Hargrove FREE T4on 05-23-2022 Free T4 [Mass/Vol] 1.33 ng/dL Normal 0.76-1.46 [facility] Comment on above: Performed By: #### L IPID, TSH, FT3 #### [facility] [address] [place] [address] Dr. Andrey Hargrove HEMOGRAM AND PLATELon 2021 Hematocrit (Bld) [Volume fraction] 30.6 % Critically low 36.0-48.0 [facility] Comment on above: Performed By: #### V ITAD, FETIBC, FERR #### [facility] [address] [place] [address] Dr. Andrey Hargrove Hemoglobin (Bld) [Mass/Vol] 10.4 g/dL Critically low 12.0-16.0 [facility] Comment on above: Performed By: #### V ITAD, FETIBC, FERR #### [facility] [address] [place] [address] Dr. Andrey Hargrove MCH (RBC) [Entitic mass] 28.6 pg Normal 26.7-34.0 [facility] Comment on above: Performed By: #### V ITAD, FETIBC, FERR #### [facility] [address] [place] [address] Dr. Andrey Hargrove MCHC (RBC) [Mass/Vol] 34.0 g/dL Normal 29.9-35.2 [facility] Comment on above: Performed By: #### V ITAD, FETIBC, FERR #### [facility] [address] [place] [address] Dr. Andrey Hargrove MCV (RBC) [Entitic vol] 84.1 fL Normal 81.0-99.0 [facility] Comment on above: Performed By: #### V ITAD, FETIBC, FERR #### [facility] [address] [address] [address] Andrey Hargrove PLT 179 103/ul Normal 150-450 [facility] Comment on above: Performed By: #### V ITAD, FETIBC, FERR #### [facility] [address] [address] [address] Andrey Hargrove RBC 3.64 106/ul Critically low 4.20-5.40 [facility] Comment on above: Performed By: #### V ITAD, FETIBC, FERR #### [facility] [address] [address] [address] Andrey Hargrove WBC 9.5 103/ul Normal 4.0-11.0 [facility] Comment on above: Performed By: #### V ITAD, FETIBC, FERR #### [facility] [address] [place] [address] Dr. Andrey Hargrove IRON AND TIBCon 05-23-2022 % SATURATION 15.9 % Normal [facility] Comment on above: Performed By: #### L IPID, TSH, FT3 #### [facility] [address] [address] [address] Andrey Hargrove Iron [Mass/Vol] 44.0 ug/dL Critically low 50.0-170.0 [facility] Comment on above: Performed By: #### L IPID, TSH, FT3 #### [facility] [address] [address] [address] Andrey Hargrove TIBC DIRECT 276.0 ug/dL Normal 250.0-450.0 [facility] Comment on above: Performed By: #### L IPID, TSH, FT3 #### [facility] [address] [place] [address] Dr. Andrey Hargrove LIPID PROFILEon 05-23-2022 CHOL-HDL RATIO NORM SEE BELOW Normal [facility] Comment on above: Result Comment: 3.3 - 4.4 LOW RISK 4.4 - 7.1 AVERAGE RISK 7.1 - 11.0 MODERATE RISK >11.0 HIGH RISK Performed By: #### L IPID, TSH, FT3 #### [facility] [address] [address] [address] Andrey Hargrove Cholesterol [Mass/Vol] 129 mg/dL Normal <=200 [facility] Comment on above: Performed By: #### L IPID, TSH, FT3 #### [facility] [address] [address] [address] Andrey Hargrove Cholesterol in HDL [Mass/Vol] 55 mg/dL Normal 40-60 [facility] Comment on above: Performed By: #### L IPID, TSH, FT3 #### [facility] [address] [address] [address] Andrey Hargrove Cholesterol in LDL [Mass/Vol] 59.6 mg/dL Normal [facility] Comment on above: Performed By: #### L IPID, TSH, FT3 #### [facility] [address] [address] [address] Andrey Hargrove Cholesterol.total/Cho lesterol in HDL [Mass ratio] 2.3 {ratio} Normal [facility] Comment on above: Performed By: #### L IPID, TSH, FT3 #### [facility] [address] [address] [address] Andrey Hargrove HDL NORMAL > or = 60 mg/dl - LO W CARDIOVASCULAR RISK <40 mg/dl - HIGH CARDIOVASCULAR RISK Normal [facility] Comment on above: Performed By: #### L IPID, TSH, FT3 #### [facility] [address] [address] [address] Andrey Hargrove LDL CALC NORMAL SEE BELOW Normal [facility] Comment on above: Result Comment: <100 mg/dl OPTIMAL 100 - 129 mg/dl NEAR OR ABOVE OPTIMAL 130 - 159 mg/dl BORDERLINE HIGH 160 - 189 mg/dl HIGH >190 mg/dl VERY HIGH Performed By: #### L IPID, TSH, FT3 #### [facility] [address] [address] [address] Andrey Hargrove Triglyceride [Mass/Vol] 72 mg/dL Normal <=150 [facility] Comment on above: Performed By: #### L IPID, TSH, FT3 #### [facility] [address] [place] [address] Dr. Andrey Hargorve VLDL CALC 14.4 mg/dL Normal [facility] Comment on above: Performed By: #### L IPID, TSH, FT3 #### [facility] [address] [place] [address] Dr. Andrey Hargrove MAGNESIUMon 05-23-2022 Magnesium [Mass/Vol] 2.2 mg/dL Normal 1.8-2.4 [facility] Comment on above: Performed By: #### L IPID, TSH, FT3 #### [facility] [address] [place] [address] Dr. Andrey Hargrove RENAL FUNCTION PANELon 05-23 Albumin [Mass/Vol] 3.5 g/dL Normal 3.4-5.0 [facility] Comment on above: Performed By: #### L IPID, TSH, FT3 #### [facility] [address] [place] [address] Dr. Andrey Hargrove Calcium [Mass/Vol] 10.0 mg/dL Normal 8.5-10.1 [facility] Comment on above: Performed By: #### L IPID, TSH, FT3 #### [facility] [address] [place] [address] Dr. Andrey Hargrove Chloride [Moles/Vol] 98 mmol/L Normal 98-107 [facility] Comment on above: Performed By: #### L IPID, TSH, FT3 #### [facility] [address] [place] [address] Dr. Andrey Hargrove CO2 [Moles/Vol] 34.3 mmol/L Critically high 21.0-32.0 [facility] Comment on above: Performed By: #### L IPID, TSH, FT3 #### [facility] [address] [place] [address] Dr. Andrey Hargrove Creatinine [Mass/Vol] 2.24 mg/dL Critically high 0.55-1.02 [facility] Comment on above: Performed By: #### L IPID, TSH, FT3 #### [facility] [address] [place] [address] Dr. Andrey Hargrove EGFR-AF [place] 26 mL/min/1.73m2 Critically low >=60 [facility] Comment on above: Performed By: #### L IPID, TSH, FT3 #### [facility] [address] [address] [address] Andrey Hargrove EGFR-NON AF [place] 22 mL/min/1.73m2 Critically low >=60 [facility] Comment on above: Performed By: #### L IPID, TSH, FT3 #### [facility] [address] [address] [address] Andrey Hargrove Glucose [Mass/Vol] 123 mg/dL Critically high 74-106 [facility] Comment on above: Performed By: #### L IPID, TSH, FT3 #### [facility] [address] [address] [address] Andrey Hargrove Phosphate [Mass/Vol] 5.2 mg/dL Critically high 2.6-4.7 [facility] Comment on above: Performed By: #### L IPID, TSH, FT3 #### [facility] [address] [address] [address] Andrey Hargrove Potassium [Moles/Vol] 3.0 mmol/L Critically low 3.5-5.1 [facility] Comment on above: Performed By: #### L IPID, TSH, FT3 #### [facility] [address] [address] [address] Andrey Hargrove Sodium [Moles/Vol] 137 mmol/L Normal 136-145 [facility] Comment on above: Performed By: #### L IPID, TSH, FT3 #### [facility] [address] [address] [address] Andrey Hargrove Urea nitrogen [Mass/Vol] 80.0 mg/dL Critically high 7.0-18.0 [facility] Comment on above: Performed By: #### L IPID, TSH, FT3 #### [facility] [address] [address] [address] Andrey Hargrove TSHon 05-23-2022 TSH 4.652 uIU/mL Critically high 0.358-3.740 [facility] Comment on above: Performed By: #### L IPID, TSH, FT3 #### [facility] [address] [place] [address] Dr. Andrey Hargrove UA RANDOM W/MICROSCOPICon BACTERIA NONE SEEN Normal NONE SEEN [facility] Comment on above: Performed By: #### V ITAD, FETIBC, FERR #### [facility] [address] [place] [address] Dr. Andrey Hargrove Bilirubin Ql (U) Negative Normal NEGATIVE [facility] Comment on above: Performed By: #### V ITAD, FETIBC, FERR #### [facility] [address] [place] [address] Dr. Andrey Hargrove CAST NONE SEEN Normal NONE SEEN [facility] Comment on above: Performed By: #### V ITAD, FETIBC, FERR #### [facility] [address] [place] [address] Dr. Andrey Hargrove Clarity (U) CLEAR Normal CLEAR [facility] Comment on above: Performed By: #### V ITAD, FETIBC, FERR #### [facility] [address] [place] [address] Dr. Andrey Hargrove Color (U) LT. YELLOW Normal YELLOW [facility] Comment on above: Performed By: #### V ITAD, FETIBC, FERR #### [facility] [address] [place] [address] Dr. Andrey Hargrove Crystals LM Nom (Urine sed) NONE SEEN Normal NONE SEEN [facility] Comment on above: Performed By: #### V ITAD, FETIBC, FERR #### [facility] [address] [place] [address] Dr. Andrey Hargrove Epithelial cells LM Ql (Urine sed) FEW Abnormal NONE SEEN /RARE [facility] Comment on above: Performed By: #### V ITAD, FETIBC, FERR #### [facility] [address] [place] [address] Dr. Andrey Hargrove Glucose Ql (U) Negative Normal NEGATIVE [facility] Comment on above: Performed By: #### V ITAD, FETIBC, FERR #### [facility] [address] [place] [address] Dr. Andrey Hargrove Hemoglobin Ql (U) TRACE-INTACT Abnormal NEGATIVE [facility] Comment on above: Performed By: #### V ITAD, FETIBC, FERR #### [facility] [address] [place] [address] Dr. Andrey Hargrove Ketones Ql (U) Negative Normal NEGATIVE [facility] Comment on above: Performed By: #### V ITAD, FETIBC, FERR #### [facility] [address] [place] [address] Dr. Andrey Hargrove LEUKOCYTES SMALL Abnormal NEGATIVE [facility] Comment on above: Performed By: #### V ITAD, FETIBC, FERR #### [facility] [address] [place] [address] Dr. Andrey Hargrove MUCOUS NONE SEEN Normal NONE SEEN [facility] Comment on above: Performed By: #### V ITAD, FETIBC, FERR #### [facility] [address] [place] [address] Dr. Andrey Hargrove Nitrite Ql (U) Negative Normal NEGATIVE [facility] Comment on above: Performed By: #### V ITAD, FETIBC, FERR #### [facility] [address] [place] [address] Dr. Andrey Hargrove pH (U) 5.5 [pH] Normal 5-9 [facility] Comment on above: Performed By: #### V ITAD, FETIBC, FERR #### [facility] [address] [place] [address] Dr. Andrey Hargrove RBC 0-2 Normal 0-2 [facility] Comment on above: Performed By: #### V ITAD, FETIBC, FERR #### [facility] [address] [place] [address] Dr. Andrey Hargrove SPEC GRAVITY 1.010 Normal 1.005-<=1.02 5 [facility] Comment on above: Performed By: #### V ITAD, FETIBC, FERR #### [facility] [address] [place] [address] Dr. Andrey Hargrove UA PROTEIN TRACE Normal NEGATIVE/ TRACE [facility] Comment on above: Performed By: #### V ITSHAQ, FETIBC, FERR #### [facility] [address] [place] [address] Dr. Andrey Hargrove Urobilinogen Qn (U) 0.2 {Kelly'U}/dL Normal 0.2 - 1. 0 [facility] Comment on above: Performed By: #### V ITAD, FETIBC, FERR #### [facility] [address] [place] [address] Dr. Andrey Hargrove WBC 0-2 Abnormal NONE SEEN [facility] Comment on above: Performed By: #### V ITSHAQ, FETIBC, FERR #### [facility] [address] [place] [address] Dr. Andrey Hargrove URIC ACID SERUMon 05-23-2022 Urate [Mass/Vol] 7.4 mg/dL Critically high 2.6-6.0 [facility] Comment on above: Performed By: #### L IPID, TSH, FT3 #### [facility] [address] [place] [address] Dr. Andrey Hargrove URINE T PROTEIN CREAT RATIOo n 05-23-2022 Protein (U) [Mass/Vol] 39.9 mg/dL Critically high <=12.0 [facility] Comment on above: Performed By: #### U RTPCR #### [facility] [address] [place] [address] Dr. Andrey Hargrove UR PROT CREAT RAT 0.64 Normal [facility] Comment on above: Performed By: #### U RTPCR #### [facility] [address] [place] [address] Dr. Andrey Hargrove URINE CREAT 62.30 mg/dL Normal 20.00-300.00 [facility] Comment on above: Performed By: #### U RTPCR #### [facility] [address] [place] [address] Dr. Andrey Hargrove VITAMIN D 25 OHon 05-23-2022 VIT D 25-OH 90.7 ng/mL Normal [facility] Comment on above: Performed By: #### L IPID, TSH, FT3 #### [facility] [address] [place] [address] Dr. Andrey Hargrove VIT D RANGES SEE BELOW Normal [facility] Comment on above: Result Comment: <20 ng/mL Vit D deficient 20 - <30 ng/mL Vit D insufficient 30 - 100 ng/mL Vit D sufficient >100 ng/mL Potential Toxicity Performed By: #### L IPID, TSH, FT3 #### [facility] [address] [place] [address] Dr. Andrey Hargrove MAGNESIUMon 05-14-2022 Magnesium [Mass/Vol] 2.1 mg/dL Normal 1.8-2.4 [facility] Comment on above: Performed By: #### L IPID, TSH, FT3 #### [facility] [address] [place] [address] Dr. Andrey Hargrove PROF CHEM 8 (BAS METB)on Anion gap [Moles/Vol] 12.0 mmol/L Normal [facility] Comment on above: Performed By: #### L IPID, TSH, FT3 #### [facility] [address] [place] [address] Dr. Andrey Hargrove Calcium [Mass/Vol] 9.0 mg/dL Normal 8.5-10.1 [facility] Comment on above: Performed By: #### L IPID, TSH, FT3 #### [facility] [address] [place] [address] Dr. Andrey Hargrove Chloride [Moles/Vol] 97 mmol/L Critically low 98-107 [facility] Comment on above: Performed By: #### L IPID, TSH, FT3 #### [facility] [address] [place] [address] Dr. Andrey Hargrove CO2 [Moles/Vol] 30.4 mmol/L Normal 21.0-32.0 [facility] Comment on above: Performed By: #### L IPID, TSH, FT3 #### [facility] [address] [address] [address] Andrey Hargrove Creatinine [Mass/Vol] 2.28 mg/dL Critically high 0.55-1.02 [facility] Comment on above: Performed By: #### L IPID, TSH, FT3 #### [facility] [address] [address] [address] Andrey Hargrove EGFR-AF [place] 26 mL/min/1.73m2 Critically low >=60 [facility] Comment on above: Performed By: #### L IPID, TSH, FT3 #### [facility] [address] [address] [address] Andrey Hargrove EGFR-NON AF [place] 21 mL/min/1.73m2 Critically low >=60 [facility] Comment on above: Performed By: #### L IPID, TSH, FT3 #### [facility] [address] [place] [address] Dr. Andrey Hargrove Glucose [Mass/Vol] 190 mg/dL Critically high 74-106 [facility] Comment on above: Performed By: #### L IPID, TSH, FT3 #### [facility] [address] [address] [address] Andrey Hargrove Potassium [Moles/Vol] 3.4 mmol/L Critically low 3.5-5.1 [facility] Comment on above: Performed By: #### L IPID, TSH, FT3 #### [facility] [address] [address] [address] Andrey Hargrove Sodium [Moles/Vol] 136 mmol/L Normal 136-145 [facility] Comment on above: Performed By: #### L IPID, TSH, FT3 #### [facility] [address] [address] [address] Andery Hargrove Urea nitrogen [Mass/Vol] 73.0 mg/dL Critically high 7.0-18.0 [facility] Comment on above: Performed By: #### L IPID, TSH, FT3 #### [facility] [address] [address] [address] Andrey Hargrove Urea nitrogen/Creatinine [Mass ratio] 32.0 mg/mg Normal [facility] Comment on above: Performed By: #### L IPID, TSH, FT3 #### [facility] [address] [address] [address] Andrey Hargrove XR CHEST 2 Von [...] RENETTA RENEE Date: 2022-05-12 09:12 Normal [facility] BNPon 05-11-2022 Natriuretic peptide B (Bld) [Mass/Vol] 7074.0 pg/mL Critically high <=900.0 [facility] Comment on above: Performed By: #### V ITAD, FETIBC, FERR #### [facility] [address] [place] [address] Dr. Andrey Hargrove CBC AUTO DIFFon 05-11-2022 BASO # 0.1 103/ul Normal 0.0-0.1 [facility] Comment on above: Performed By: #### V ITAD FETIBC, FERR #### [facility] [address] [place] [address] Dr. Andrey Hargrove Basophils/100 WBC (Bld) 0.7 % Normal 0.2-2.0 [facility] Comment on above: Performed By: #### V ITAD, FETIBC, FERR #### [facility] [address] [place] [address] Dr. Andrey Hargrove EO # 0.3 103/ul Normal 0.0-0.7 [facility] Comment on above: Performed By: #### V ITAD, FETIBC, FERR #### [facility] [address] [place] [address] Dr. Andrey Hargrove Eosinophils/100 WBC (Bld) 3.8 % Normal 0.9-7.0 [facility] Comment on above: Performed By: #### V ITAD, FETIBC, FERR #### [facility] [address] [place] [address] Dr. Andrey Hargrove Erythrocyte distribution width (RBC) [Ratio] 14.7 % Normal 11.0-15.0 [facility] Comment on above: Performed By: #### V ITAD, FETIBC, FERR #### [facility] [address] [place] [address] Dr. Andrey Hargrove Hematocrit (Bld) [Volume fraction] 29.6 % Critically low 36.0-48.0 [facility] Comment on above: Performed By: #### V ITAD, FETIBC, FERR #### [facility] [address] [place] [address] Dr. Andrey Hargrove Hemoglobin (Bld) [Mass/Vol] 9.9 g/dL Critically low 12.0-16.0 [facility] Comment on above: Performed By: #### V ITAD, FETIBC, FERR #### [facility] [address] [place] [address] Dr. Andrey Hargrove IG # 0.03 10e3/ul Normal 0.00-0.03 [facility] Comment on above: Performed By: #### V ITAD, FETIBC, FERR #### [facility] [address] [place] [address] Dr. Andrey Hargrove IG % 0.4 % Normal 0.0-0.5 [facility] Comment on above: Performed By: #### V ITAD, FETIBC, FERR #### [facility] [address] [place] [address] Dr. Andrey Hargrove LYMPH # 1.3 103/ul Normal 1.2-3.8 [facility] Comment on above: Performed By: #### V ITAD, FETIBC, FERR #### [facility] [address] [place] [address] Dr. Andrey Hargrove Lymphocytes/100 WBC (Bld) 16.3 % Critically low 20.5-60.0 [facility] Comment on above: Performed By: #### V ITAD, FETIBC, FERR #### [facility] [address] [place] [address] Dr. Andrey Hargrove MANUAL DIFF REQ NO Normal [facility] Comment on above: Performed By: #### V ITAD, FETIBC, FERR #### [facility] [address] [place] [address] Dr. Andrey Hargrove MCH (RBC) [Entitic mass] 28.7 pg Normal 26.7-34.0 [facility] Comment on above: Performed By: #### V ITAD, FETIBC, FERR #### [facility] [address] [place] [address] Dr. Andrey Hargrove MCHC (RBC) [Mass/Vol] 33.4 g/dL Normal 29.9-35.2 [facility] Comment on above: Performed By: #### V ITAD, FETIBC, FERR #### [facility] [address] [place] [address] Dr. Andrey Hargrove MCV (RBC) [Entitic vol] 85.8 fL Normal 81.0-99.0 [facility] Comment on above: Performed By: #### V ITAD, FETIBC, FERR #### [facility] [address] [place] [address] Dr. Andrey Hargrove MONO # 0.7 103/ul Normal 0.3-0.8 [facility] Comment on above: Performed By: #### V ITAD, FETIBC, FERR #### [facility] [address] [place] [address] Dr. Andrey Hargrove Monocytes/100 WBC (Bld) 8.7 % Normal 1.7-12.0 [facility] Comment on above: Performed By: #### V ITAD, FETIBC, FERR #### [facility] [address] [place] [address] Dr. Andrey Hargrove NEUT # 5.4 103/ul Normal 1.4-6.5 [facility] Comment on above: Performed By: #### V ITAD, FETIBC, FERR #### [facility] [address] [place] [address] Dr. Andrey Hargrove Neutrophils/100 WBC (Bld) 70.1 % Normal 43.0-75.0 [facility] Comment on above: Performed By: #### V ITAD, FETIBC, FERR #### [facility] [address] [place] [address] Dr. Andrey Hargrove Platelet mean volume (Bld) [Entitic vol] 10.9 fL Normal 9.5-13.5 [facility] Comment on above: Performed By: #### V ITAD, FETIBC, FERR #### [facility] [address] [place] [address] Dr. Andrey Hargrove PLT 171 103/ul Normal 150-450 [facility] Comment on above: Performed By: #### V ITAD, FETIBC, FERR #### [facility] [address] [place] [address] Dr. Andrey Hargrove RBC 3.45 106/ul Critically low 4.20-5.40 [facility] Comment on above: Performed By: #### V ITAD, FETIBC, FERR #### [facility] [address] [place] [address] Dr. Andrey Hargrove WBC 7.7 103/ul Normal 4.0-11.0 [facility] Comment on above: Performed By: #### V ITAD, FETIBC, FERR #### [facility] [address] [place] [address] Dr. Andrey Hargrove PROF CHEM 8 (BAS METB)on Anion gap [Moles/Vol] 9.8 mmol/L Normal [facility] Comment on above: Performed By: #### V ITAD, FETIBC, FERR #### [facility] [address] [place] [address] Dr. Andrey Hargrove Calcium [Mass/Vol] 9.1 mg/dL Normal 8.5-10.1 [facility] Comment on above: Performed By: #### V ITAD, FETIBC, FERR #### [facility] [address] [place] [address] Dr. Andrey Hargrove Chloride [Moles/Vol] 96 mmol/L Critically low 98-107 [facility] Comment on above: Performed By: #### V ITAD, FETIBC, FERR #### [facility] [address] [place] [address] Dr. Andrey Hargrove CO2 [Moles/Vol] 30.8 mmol/L Normal 21.0-32.0 [facility] Comment on above: Performed By: #### V ITAD, FETIBC, FERR #### [facility] [address] [place] [address] Dr. Andrey Hargrove Creatinine [Mass/Vol] 2.28 mg/dL Critically high 0.55-1.02 [facility] Comment on above: Performed By: #### V ITAD, FETIBC, FERR #### [facility] [address] [place] [address] Dr. Andrey Hargrove EGFR-AF [place] 26 mL/min/1.73m2 Critically low >=60 [facility] Comment on above: Performed By: #### V ITAD, FETIBC, FERR #### [facility] [address] [place] [address] Dr. Andrey Hargrove EGFR-NON AF [place] 21 mL/min/1.73m2 Critically low >=60 [facility] Comment on above: Performed By: #### V ITAD, FETIBC, FERR #### [facility] [address] [address] [address] Andrey Hargrove Glucose [Mass/Vol] 158 mg/dL Critically high 74-106 [facility] Comment on above: Performed By: #### V ITAD, FETIBC, FERR #### [facility] [address] [place] [address] Dr. Andrey Hargrove Potassium [Moles/Vol] 3.6 mmol/L Normal 3.5-5.1 [facility] Comment on above: Performed By: #### V ITAD, FETIBC, FERR #### [facility] [address] [address] [address] Andrey Hargrove Sodium [Moles/Vol] 133 mmol/L Critically low 136-[address] [facility] Comment on above: Performed By: #### V ITAD, FETIBC, FERR #### [facility] [address] [place] [address] Dr. Andrey Hargrove Urea nitrogen [Mass/Vol] 66.0 mg/dL Critically high 7.0-18.0 [facility] Comment on above: Performed By: #### V ITAD, FETIBC, FERR #### [facility] [address] [place] [address] Dr. Andrey Hargrove Urea nitrogen/Creatinine [Mass ratio] 28.9 mg/mg Normal [facility] Comment on above: Performed By: #### V ITAD, FETIBC, FERR #### [facility] [address] [place] [address] Dr. Andrey Hargrove MAGNESIUMon 03-17-2022 Magnesium [Mass/Vol] 1.9 mg/dL Normal 1.8-2.4 [facility] Comment on above: Performed By: #### V ITAD, FETIBC, FERR #### [facility] [address] [place] [address] Dr. Andrey Hargrove PROF CHEM 8 (BAS METB)on Anion gap [Moles/Vol] 11.7 mmol/L Normal [facility] Comment on above: Performed By: #### V ITAD, FETIBC, FERR #### [facility] [address] [place] [address] Dr. Andrey Hargrove Calcium [Mass/Vol] 9.4 mg/dL Normal 8.5-10.1 [facility] Comment on above: Performed By: #### V ITAD, FETIBC, FERR #### [facility] [address] [place] [address] Dr. Andrey Hargrove Chloride [Moles/Vol] 97 mmol/L Critically low 98-107 [facility] Comment on above: Performed By: #### V ITAD, FETIBC, FERR #### [facility] [address] [address] [address] Andrey Hargrove CO2 [Moles/Vol] 29.0 mmol/L Normal 21.0-32.0 [facility] Comment on above: Performed By: #### V ITAD, FETIBC, FERR #### [facility] [address] [place] [address] Dr. Andrey Hargrove Creatinine [Mass/Vol] 2.02 mg/dL Critically high 0.55-1.02 [facility] Comment on above: Performed By: #### V ITAD, FETIBC, FERR #### [facility] [address] [place] [address] Dr. Andrey Hargrove EGFR-AF [place] 30 mL/min/1.73m2 Critically low >=60 [facility] Comment on above: Performed By: #### V ITAD, FETIBC, FERR #### [facility] [address] [place] [address] Dr. Andrey Hargrove EGFR-NON AF [place] 24 mL/min/1.73m2 Critically low >=60 [facility] Comment on above: Performed By: #### V ITAD, FETIBC, FERR #### [facility] [address] [place] [address] Dr. Andrey Hargrove Glucose [Mass/Vol] 204 mg/dL Critically high 74-106 [facility] Comment on above: Performed By: #### V ITAD, FETIBC, FERR #### [facility] [address] [place] [address] Dr. Andrey Hargrove Potassium [Moles/Vol] 3.7 mmol/L Normal 3.5-5.1 [facility] Comment on above: Performed By: #### V ITAD, FETIBC, FERR #### [facility] [address] [place] [address] Dr. Andrey Hargrove Sodium [Moles/Vol] 134 mmol/L Critically low 136-145 [facility] Comment on above: Performed By: #### V ITAD, FETIBC, FERR #### [facility] [address] [place] [address] Dr. Andrey Hargrove Urea nitrogen [Mass/Vol] 60.0 mg/dL Critically high 7.0-18.0 [facility] Comment on above: Performed By: #### V ITAD, FETIBC, FERR #### [facility] [address] [place] [address] Dr. Andrey Hargrove Urea nitrogen/Creatinine [Mass ratio] 29.7 mg/mg Normal [facility] Comment on above: Performed By: #### V ITAD, FETIBC, FERR #### [facility] [address] [place] [address] Dr. Andrey Hargrove PTH INTACTon 01-18-2022 PTH, Intact 51 pg/mL Normal 15-65 [facility] Comment on above: Performed By: #### L IPID, TSH, FT3 #### [facility] [address] [place] [address] Dr. Andrey Hargrove FERRITINon 01-17-2022 Ferritin [Mass/Vol] 133.0 ng/mL Normal 8.0-252.0 [facility] Comment on above: Performed By: #### V ITAD, FETIBC, FERR #### [facility] [address] [place] [address] Dr. Andrey Hargrove HEMOGRAM AND PLATELon 2021 Hematocrit (Bld) [Volume fraction] 31.7 % Critically low 36.0-48.0 [facility] Comment on above: Performed By: #### V ITAD, FETIBC, FERR #### [facility] [address] [place] [address] Dr. Andrey Hargrove Hemoglobin (Bld) [Mass/Vol] 10.2 g/dL Critically low 12.0-16.0 [facility] Comment on above: Performed By: #### V ITAD, FETIBC, FERR #### [facility] [address] [place] [address] Dr. Andrey Hargrove MCH (RBC) [Entitic mass] 28.3 pg Normal 26.7-34.0 [facility] Comment on above: Performed By: #### V ITAD, FETIBC, FERR #### [facility] [address] [place] [address] Dr. Andrey Hargrove MCHC (RBC) [Mass/Vol] 32.2 g/dL Normal 29.9-35.2 [facility] Comment on above: Performed By: #### V ITAD, FETIBC, FERR #### [facility] [address] [place] [address] Dr. Andrey Hargrove MCV (RBC) [Entitic vol] 88.1 fL Normal 81.0-99.0 [facility] Comment on above: Performed By: #### V ITAD, FETIBC, FERR #### [facility] [address] [place] [address] Dr. Andrey Hargrove PLT 198 103/ul Normal 150-450 [facility] Comment on above: Performed By: #### V ITAD, FETIBC, FERR #### [facility] [address] [place] [address] Dr. Andrey Hargrove RBC 3.60 106/ul Critically low 4.20-5.40 [facility] Comment on above: Performed By: #### V ITAD, FETIBC, FERR #### [facility] [address] [place] [address] Dr. Andrey Hargrove WBC 8.5 103/ul Normal 4.0-11.0 [facility] Comment on above: Performed By: #### V ITAD, FETIBC, FERR #### [facility] [address] [place] [address] Dr. Andrey Hargrove IRON AND TIBCon 01-17-2022 % SATURATION 17.8 % Normal [facility] Comment on above: Performed By: #### V ITAD, FETIBC, FERR #### [facility] [address] [place] [address] Dr. Andrey Hargrove Iron [Mass/Vol] 47.0 ug/dL Critically low 50.0-170.0 [facility] Comment on above: Performed By: #### V ITAD, FETIBC, FERR #### [facility] [address] [place] [address] Dr. Andrey Hargrove TIBC DIRECT 264.0 ug/dL Normal 250.0-450.0 [facility] Comment on above: Performed By: #### V ITAD, FETIBC, FERR #### [facility] [address] [place] [address] Dr. Andrey Hargrove MAGNESIUMon 01-17-2022 Magnesium [Mass/Vol] 2.0 mg/dL Normal 1.8-2.4 [facility] Comment on above: Performed By: #### V ITAD, FETIBC, FERR #### [facility] [address] [address] [address] Andrey Hargrove RENAL FUNCTION PANELon 01-17 Albumin [Mass/Vol] 3.3 g/dL Critically low 3.4-5.[address] [facility] Comment on above: Performed By: #### V ITAD, FETIBC, FERR #### [facility] [address] [place] [address] Dr. Andrey Hargrove Calcium [Mass/Vol] 9.1 mg/dL Normal 8.5-10.1 [facility] Comment on above: Performed By: #### V ITAD, FETIBC, FERR #### [facility] [address] [place] [address] Dr. Andrey Hargrove Chloride [Moles/Vol] 104 mmol/L Normal 98-107 [facility] Comment on above: Performed By: #### V ITAD, FETIBC, FERR #### [facility] [address] [place] [address] Dr. Andrey Hargrove CO2 [Moles/Vol] 27.6 mmol/L Normal 21.0-32.0 [facility] Comment on above: Performed By: #### V ITAD, FETIBC, FERR #### [facility] [address] [place] [address] Dr. Andrey Hargrove Creatinine [Mass/Vol] 1.71 mg/dL Critically high 0.55-1.02 [facility] Comment on above: Performed By: #### V ITAD, FETIBC, FERR #### [facility] [address] [place] [address] Dr. Andrey Hargrove EGFR-AF [place] 36 mL/min/1.73m2 Critically low >=60 [facility] Comment on above: Performed By: #### V ITAD, FETIBC, FERR #### [facility] [address] [address] [address] Andrey Hargrove EGFR-NON AF [place] 30 mL/min/1.73m2 Critically low >=60 [facility] Comment on above: Performed By: #### V ITAD, FETIBC, FERR #### [facility] [address] [address] [address] Andrey Hargrove Glucose [Mass/Vol] 115 mg/dL Critically high 74-106 [facility] Comment on above: Performed By: #### V ITAD, FETIBC, FERR #### [facility] [address] [place] [address] Dr. Andrey Hargrove Phosphate [Mass/Vol] 4.3 mg/dL Normal 2.6-4.7 [facility] Comment on above: Performed By: #### V ITAD, FETIBC, FERR #### [facility] [address] [place] [address] Dr. Andrey Hargrove Potassium [Moles/Vol] 3.9 mmol/L Normal 3.5-5.1 [facility] Comment on above: Performed By: #### V ITAD, FETIBC, FERR #### [facility] [address] [place] [address] Dr. Andrey Hargrove Sodium [Moles/Vol] 139 mmol/L Normal 136-145 [facility] Comment on above: Performed By: #### V ITAD, FETIBC, FERR #### [facility] [address] [place] [address] Dr. Andrey Hargrove Urea nitrogen [Mass/Vol] 38.0 mg/dL Critically high 7.0-18.0 [facility] Comment on above: Performed By: #### V ITAD, FETIBC, FERR #### [facility] [address] [place] [address] Dr. Andrey Hargrove UA RANDOM W/MICROSCOPICon BACTERIA NONE SEEN Normal NONE SEEN [facility] Comment on above: Performed By: #### L IPID, TSH, FT3 #### [facility] [address] [place] [address] Dr. Andrey Hargrove Bilirubin Ql (U) Negative Normal NEGATIVE [facility] Comment on above: Performed By: #### L IPID, TSH, FT3 #### [facility] [address] [place] [address] Dr. Andrey Hargrove CAST SEEN Abnormal NONE SEEN [facility] Comment on above: Performed By: #### L IPID, TSH, FT3 #### [facility] [address] [place] [address] Dr. Andrey Hargrove Clarity (U) CLEAR Normal CLEAR [facility] Comment on above: Performed By: #### L IPID, TSH, FT3 #### [facility] [address] [place] [address] Dr. Andrey Hargrove Color (U) LT. YELLOW Normal YELLOW [facility] Comment on above: Performed By: #### L IPID, TSH, FT3 #### [facility] [address] [place] [address] Dr. Andrey Hargrove Crystals LM Nom (Urine sed) NONE SEEN Normal NONE SEEN [facility] Comment on above: Performed By: #### L IPID, TSH, FT3 #### [facility] [address] [place] [address] Dr. Andrey Hargrove Epithelial cells LM Ql (Urine sed) FEW Abnormal NONE SEEN /RARE [facility] Comment on above: Performed By: #### L IPID, TSH, FT3 #### [facility] [address] [place] [address] Dr. Andrey Hargrove Glucose Ql (U) Negative Normal NEGATIVE [facility] Comment on above: Performed By: #### L IPID, TSH, FT3 #### [facility] [address] [place] [address] Dr. Andrey Hargrove Hemoglobin Ql (U) Negative Normal NEGATIVE [facility] Comment on above: Performed By: #### L IPID, TSH, FT3 #### [facility] [address] [place] [address] Dr. Andrey Hargrove HYALINE CAST RARE Normal [facility] Comment on above: Performed By: #### L IPID, TSH, FT3 #### [facility] [address] [place] [address] Dr. Andrey Hargrove Ketones Ql (U) Negative Normal NEGATIVE [facility] Comment on above: Performed By: #### L IPID, TSH, FT3 #### [facility] [address] [place] [address] Dr. Andrey Hargrove LEUKOCYTES TRACE Abnormal NEGATIVE [facility] Comment on above: Performed By: #### L IPID, TSH, FT3 #### [facility] [address] [address] [address] Andrey Hargrove MUCOUS NONE SEEN Normal NONE SEEN [facility] Comment on above: Performed By: #### L IPID, TSH, FT3 #### [facility] [address] [place] [address] Dr. Andrey Hargrove Nitrite Ql (U) Negative Normal NEGATIVE [facility] Comment on above: Performed By: #### L IPID, TSH, FT3 #### [facility] [address] [place] [address] Dr. Andrey Hargrove pH (U) 5.0 [pH] Normal 5-9 [facility] Comment on above: Performed By: #### L IPID, TSH, FT3 #### [facility] [address] [place] [address] Dr. Andrey Hargrove RBC 0-2 Normal 0-2 [facility] Comment on above: Performed By: #### L IPID, TSH, FT3 #### [facility] [address] [place] [address] Dr. Andrey Hargrove SPEC GRAVITY 1.020 Normal 1.005-<=1.02 5 [facility] Comment on above: Performed By: #### L IPID, TSH, FT3 #### [facility] [address] [place] [address] Dr. Andrey Hargrove UA PROTEIN Negative Normal NEGATIVE/ TRACE [facility] Comment on above: Performed By: #### L IPID, TSH, FT3 #### [facility] [address] [place] [address] Dr. Andrey Hargrove Urobilinogen Qn (U) 0.2 {Kelly'U}/dL Normal 0.2 - 1. 0 [facility] Comment on above: Performed By: #### L IPID, TSH, FT3 #### [facility] [address] [place] [address] Dr. Andrey Hargrove WBC 2-5 Abnormal NONE SEEN [facility] Comment on above: Performed By: #### L IPID, TSH, FT3 #### [facility] [address] [place] [address] Dr. Andrey Hargrove URIC ACID SERUMon 01-17-2022 Urate [Mass/Vol] 5.4 mg/dL Normal 2.6-6.0 [facility] Comment on above: Performed By: #### V ITAD, FETIBC, FERR #### [facility] [address] [place] [address] Dr. Andrey Hargrove URINE T PROTEIN CREAT RATIOo n 01-17-2022 Protein (U) [Mass/Vol] 15.3 mg/dL Critically high <=12.0 [facility] Comment on above: Performed By: #### V ITAD, FETIBC, FERR #### [facility] [address] [place] [address] Dr. Andrey Hargrove UR PROT CREAT RAT 0.36 Normal [facility] Comment on above: Performed By: #### V ITAD, FETIBC, FERR #### [facility] [address] [place] [address] Dr. Andrey Hargrove URINE CREAT 42.16 mg/dL Normal 20.00-300.00 [facility] Comment on above: Performed By: #### V ITAD, FETIBC, FERR #### [facility] [address] [place] [address] Dr. Andrey Hargrove VITAMIN D 25 OHon 01-17-2022 VIT D 25-OH 73.8 ng/mL Normal [facility] Comment on above: Performed By: #### V ITAD, FETIBC, FERR #### [facility] [address] [place] [address] Dr. Andrey Hargrove VIT D RANGES SEE BELOW Normal [facility] Comment on above: Result Comment: <20 ng/mL Vit D deficient 20 - <30 ng/mL Vit D insufficient 30 - 100 ng/mL Vit D sufficient >100 ng/mL Potential Toxicity Performed By: #### V ITAD, FETIBC, FERR #### [facility] [address] [place] [address] Dr. Andrey Hargrove PROF CHEM 8 (BAS METB)on Anion gap [Moles/Vol] 13.3 mmol/L Normal [facility] Comment on above: Performed By: #### V ITAD, FETIBC, FERR #### [facility] [address] [place] [address] Dr. Andrey Hargrove Calcium [Mass/Vol] 9.5 mg/dL Normal 8.5-10.1 [facility] Comment on above: Performed By: #### V ITAD, FETIBC, FERR #### [facility] [address] [place] [address] Dr. Andrey Hargrove Chloride [Moles/Vol] 98 mmol/L Normal 98-107 [facility] Comment on above: Performed By: #### V ITAD, FETIBC, FERR #### [facility] [address] [place] [address] Dr. Andrey Hargrove CO2 [Moles/Vol] 25.7 mmol/L Normal 21.0-32.0 [facility] Comment on above: Performed By: #### V ITAD, FETIBC, FERR #### [facility] [address] [place] [address] Dr. Andrey Hargrove Creatinine [Mass/Vol] 2.92 mg/dL Critically high 0.55-1.02 [facility] Comment on above: Performed By: #### V ITAD, FETIBC, FERR #### [facility] [address] [place] [address] Dr. Andrey Hargrove EGFR-AF [place] 19 mL/min/1.73m2 Critically low >=60 [facility] Comment on above: Performed By: #### V ITAD, FETIBC, FERR #### [facility] [address] [address] [address] Andrey Hargrove EGFR-NON AF [place] 16 mL/min/1.73m2 Critically low >=60 [facility] Comment on above: Performed By: #### V ITAD, FETIBC, FERR #### [facility] [address] [address] [address] Andrey Hargrove Glucose [Mass/Vol] 156 mg/dL Critically high 74-106 T [facility] Comment on above: Performed By: #### V ITAD, FETIBC, FERR #### [facility] [address] [address] [address] Andrey Hargrove Potassium [Moles/Vol] 5.0 mmol/L Normal 3.5-5.1 [facility] Comment on above: Performed By: #### V ITAD, FETIBC, FERR #### [facility] [address] [address] [address] Andrey Hargrove Sodium [Moles/Vol] 132 mmol/L Critically low 136-145 Th [facility] Comment on above: Performed By: #### V ITAD, FETIBC, FERR #### [facility] [address] [address] [address] Andrey Hargrove Urea nitrogen [Mass/Vol] 77.0 mg/dL Critically high 7.0-18.0 [facility] Comment on above: Result Comment: CALL ED TO FRANCIS JUNG RMSharonda Performed By: #### V ITAD, FETIBC, FERR #### [facility] [address] [place] [address] Dr. Andrey Hargrove Urea nitrogen/Creatinine [Mass ratio] 26.4 mg/mg Normal [facility] Comment on above: Performed By: #### V ITAD, FETIBC, FERR #### [facility] [address] [place] [address] Dr. Andrey Hargrove Cardiovascular Lab Reporton 12-10-2021 Cardiovascular Lab Report [facility] Patient Name: [facility] MR #: [id number] Physician: Karthik Calvo of [facility] Date: 12/09/2021 Division of Birthdate: 1950 Cardiology Room #: Adult Cardiovascular Services [address] [place] [place] [address] Cardiovascular Laboratory Report INDICATION: The patient is [...] signed informed consent. 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 The right neck area was prepped and draped in usual fashion. Micropuncture technique and ultrasound guidance were used for access in the right internal jugular vein. A 5-Vincentian x 11 cm sheath was placed. A 5-Vincentian Dumont catheter was used for right heart [...] Fish M.D. Date Trans: 12/09/2021 11:37 P/monikao [id number] cc: John Perdomo D.O. [address] [place] [address] [address] [place] [id number] Normal [facility] CBC COMPLETE BLOOD COUNTon 0 12-09-2021 Erythrocyte distribution width (RBC) [Ratio] 13.6 % Normal 11.5-15.0 [facility] Comment on above: Performed By: #### 5 [id number] #### [facility] [address] [facility] [place] [address], [facility] Hematocrit (Bld) [Volume fraction] 35.6 % Low 36.0-45.0 [facility] Comment on above: Performed By: #### 5 0608 #### [facility] [address] [facility] [address], [facility] Hemoglobin (Bld) [Mass/Vol] 11.8 g/dL Low 12.0-15.0 [facility] Comment on above: Performed By: #### 5 0608 #### [facility] [address] [facility] [place] [address], [facility] MCH (RBC) [Entitic mass] 28.6 pg Normal 27.0-33.0 [facility] Comment on above: Performed By: #### 5 0608 #### [facility] [address] [place] [address], [facility] MCHC (RBC) [Mass/Vol] 33.1 g/dL Normal 32.0-35.0 [facility] Comment on above: Performed By: #### 5 0608 #### [facility] [address] [facility] [place] [place] [address], [facility] MCV (RBC) [Entitic vol] 86.2 fL Normal 82.0-98.0 [facility] Comment on above: Performed By: #### 5 0608 #### [facility] [address] [place] [address], [facility] Nucleated RBC/100 WBC (Bld) [Ratio] 0 % Normal 0-0 [facility] Comment on above: Performed By: #### 5 0608 #### [facility] [address] PLAT CNT 240 10*3/uL Normal 150-400 [facility] Comment on above: Performed By: #### 5 0608 #### [facility] [address] [facility] [place] [place] [address], [facility] RBC (Bld) [#/Vol] 4.13 10*6/uL Normal 3.80-5.00 [facility] Comment on above: Performed By: #### 5 0608 #### [facility] [address] [place] [address], [facility] WBC (Bld) [#/Vol] 14.13 10*3/uL High 4.00-10.60 [facility] Comment on above: Performed By: #### 5 0608 #### [facility] [address] Covid-19 PCR (CVDTB)on SARS-CoV-2 (COVID-19) RNA AJYASHREE+probe Ql (Unsp spec) Not detected Normal NOT DETECTED [facility] Comment on above: Result Comment: This test is not yet approved or cleared by the [place] FDA. When there are no FDA-approved or cleared tests available, and other criteria are met, FDA can make tests available under an emergency access mechanism called an Emergency Use Authorization (EUA). The EUA for this test is supported by the [employer] Supervisor of Health and Human Service's (HHS's) declaration [...] By: #### V ITAD, FETIBC, FERR #### [facility] [address] [place] [address] Dr. Andrey Hargrove ECHOCARDIO M/2D COMPLETEon 0 12-06-2021 ECHOCARDIO M/2D COMPLETE Patient: CLAUDIA ESTRELLA Exam Date: 12/06/2021 : 1950 Gender:F Ordering : CARMINA ROSALES Admission #: [id number] Family : DR JOHN PERDOMO DPayal Order #: [id number] CLICK HERE TO VIEW EXAM ECHOCARDIOGRAM REPORT [...] Area(A4C): 14.80 cm2 Left Atrium Systolic Volume(A2C): 04911 mm3 Left Atrium Systolic Volume(A4C): 67395 mm3 Mitral Valve MV E to A [...] Fish M.D. on 12/06/2021 at 17:31 Normal [facility] BNPon 12-01-2021 Natriuretic peptide B (Bld) [Mass/Vol] 5127.0 pg/mL Critically high <=900.0 [facility] Comment on above: Performed By: #### V ITAD, FETIBC, FERR #### [facility] [address] [place] [address] Dr. Andrey Hargrove PROF CHEM 8 (BAS METB)on Anion gap [Moles/Vol] 13.9 mmol/L Normal [facility] Comment on above: Performed By: #### V ITAD, FETIBC, FERR #### [facility] [address] [place] [address] Dr. Andrey Hargrove Calcium [Mass/Vol] 9.4 mg/dL Normal 8.5-10.1 [facility] Comment on above: Performed By: #### V ITAD, FETIBC, FERR #### [facility] [address] [address] [address] Andrey Hargrove Chloride [Moles/Vol] 99 mmol/L Normal 98-107 [facility] Comment on above: Performed By: #### V ITAD, FETIBC, FERR #### [facility] [address] [address] [address] Andrey Hargrove CO2 [Moles/Vol] 28.4 mmol/L Normal 21.0-32.0 [facility] Comment on above: Performed By: #### V ITAD, FETIBC, FERR #### [facility] [address] [address] [address] Andrey Hargrove Creatinine [Mass/Vol] 2.11 mg/dL Critically high 0.55-1.02 [facility] Comment on above: Performed By: #### V ITAD, FETIBC, FERR #### [facility] [address] [address] [address] Andrey Hargrove EGFR-AF [place] 28 mL/min/1.73m2 Critically low >=60 [facility] Comment on above: Performed By: #### V ITAD, FETIBC, FERR #### [facility] [address] [address] [address] Andrey Hargrove EGFR-NON AF [place] 23 mL/min/1.73m2 Critically low >=60 [facility] Comment on above: Performed By: #### V ITAD, FETIBC, FERR #### [facility] [address] [place] [address] Dr. Andrey Hargrove Glucose [Mass/Vol] 179 mg/dL Critically high 74-106 T [facility] Comment on above: Performed By: #### V ITAD, FETIBC, FERR #### [facility] [address] [place] [address] Dr. Andrey Hargrove Potassium [Moles/Vol] 4.3 mmol/L Normal 3.5-5.1 [facility] Comment on above: Performed By: #### V ITAD, FETIBC, FERR #### [facility] [address] [place] [address] Dr. Andrey Hargrove Sodium [Moles/Vol] 137 mmol/L Normal 136-145 [facility] Comment on above: Performed By: #### V ITAD, FETIBC, FERR #### [facility] [address] [place] [address] Dr. Andrey Hargrove Urea nitrogen [Mass/Vol] 62.0 mg/dL Critically high 7.0-18.0 [facility] Comment on above: Performed By: #### V ITAD, FETIBC, FERR #### [facility] [address] [place] [address] Dr. Andrey Hargrove Urea nitrogen/Creatinine [Mass ratio] 29.4 mg/mg Normal [facility] Comment on above: Performed By: #### V ITAD, FETIBC, FERR #### [facility] [address] [place] [address] Dr. Andrey Hargrove BNPon 11-19-2021 Natriuretic peptide B (Bld) [Mass/Vol] 4773.0 pg/mL Critically high <=900.0 [facility] Comment on above: Performed By: #### V ITAD, FETIBC, FERR #### [facility] [address] [place] [address] Dr. Andrey Hargrove PROF CHEM 8 (BAS METB)on Anion gap [Moles/Vol] 11.3 mmol/L Normal Th [facility] Comment on above: Performed By: #### V ITAD, FETIBC, FERR #### [facility] [address] [place] [address] Dr. Andrey Hargrove Calcium [Mass/Vol] 8.9 mg/dL Normal 8.5-10.1 [facility] Comment on above: Performed By: #### V ITAD, FETIBC, FERR #### [facility] [address] [place] [address] Dr. Andrey Hargrove Chloride [Moles/Vol] 100 mmol/L Normal 98-107 [facility] Comment on above: Performed By: #### V ITAD, FETIBC, FERR #### [facility] [address] [place] [address] Dr. Andrey Hargrove CO2 [Moles/Vol] 30.9 mmol/L Normal 21.0-32.0 [facility] Comment on above: Performed By: #### V ITAD, FETIBC, FERR #### [facility] [address] [place] [address] Dr. Andrey Hargrove Creatinine [Mass/Vol] 2.01 mg/dL Critically high 0.55-1.02 [facility] Comment on above: Performed By: #### V ITAD, FETIBC, FERR #### [facility] [address] [place] [address] Dr. Andrey Hargrove EGFR-AF [place] 30 mL/min/1.73m2 Critically low >=60 [facility] Comment on above: Performed By: #### V ITAD, FETIBC, FERR #### [facility] [address] [address] [address] Andrey Hargrove EGFR-NON AF [place] 24 mL/min/1.73m2 Critically low >=60 [facility] Comment on above: Performed By: #### V ITAD, FETIBC, FERR #### [facility] [address] [place] [address] Dr. Andrey Hargrove Glucose [Mass/Vol] 81 mg/dL Normal 74-106 [facility] Comment on above: Performed By: #### V ITAD, FETIBC, FERR #### [facility] [address] [place] [address] Dr. Andrey Hargrove Potassium [Moles/Vol] 3.2 mmol/L Critically low 3.5-5.1 [facility] Comment on above: Performed By: #### V ITAD, FETIBC, FERR #### [facility] [address] [address] [address] Adnrey Hargrove Sodium [Moles/Vol] 139 mmol/L Normal 136-145 [facility] Comment on above: Performed By: #### V ITAD, FETIBC, FERR #### [facility] [address] [address] [address] Andrey Hargrove Urea nitrogen [Mass/Vol] 51.0 mg/dL Critically high 7.0-18.0 [facility] Comment on above: Performed By: #### V ITAD, FETIBC, FERR #### [facility] [address] [address] [address] Andrey Hargrove Urea nitrogen/Creatinine [Mass ratio] 25.4 mg/mg Normal [facility] Comment on above: Performed By: #### V ITAD, FETIBC, FERR #### [facility] [address] [place] [address] Dr. Andrey Hargrove COVID-19 Antigenon 2 COVID-19 Antigen Healthcare Worker?: Georgi Ignacio Reference Kenny Reference Negative Kenny Blank COVID19 [...] its performance Kenny Disclaimer characteristic determined by [employer] and Kenny Disclaimer validated at [facility]. This Kenny Disclaimer test has not been [...] is terminated or revoked sooner. PERFORMED BY: [place] [id number] PATHOLOGIST JOURNEY[employer]ELDER JAMAL ALLEN M.D. Normal [facility] Comment on above: Performed By: #### S OFIAPOS, COVID-19 KENNY #### [address] Kenny Ag Positiveon 07-31-19 Kenny Ag Positive Positive Critically abnormal Negative [facility] Comment on above: Result Comment: This is a duplicate Kenny SARS Antigen (JOSE RAMON) result to be used for statistical tracking purpose only. PERFORMED BY: [place] [address] PATHOLOGIST JOURNEYMAN PIPE WELDER JAMAL ALLEN M.D. Performed By: #### S OFIAPOS, COVID-19 KENNY #### [address] Coding Summary.on 12-22-2020 Coding Summary. CD:[id number] G h0bWw+PGhlYWQ+BW9IEWM uC04spHGshK2DM6yOXO5T VGLZOCRRVU6NUG0rtEB0A VyqM2LbyhFo JjkflQRmIL92LSe4WOD8u BxfSEprzK5ubVSmY4q0Ag QzTU08rN37BUysHRMbNpT 3LjZpbjsgbWFy Z6dqWnZwrIKlOed+PHRhY mxlIHdpZHRoPScxMDAlJy TpfAwgQR7sGb3pIWLqWCW vbGxhcHNlOiBj h3imJKDmIKsfLO3iiKuyD 2YssPR3SMFui5j5Iy80vX I+LCByGCL8rKatIBvaw88 9UxQge4ygKLI4 bVFuARmqBBA7B54ap4Q2Q MKeOBBqBAL9jIZ7pP8fpP gkwqcfV3CloVOuBfE8ZYS 9yMHooG9gvDse vbpdtB4zUoh+M91GQI8TM MQJOR2TOvz9W3RgGgjpbC I+PY50KZRrTI95dKGmkHF zt4dzhFd3GmXl UXFcMEV3xDqcIMmat0UfX YVgV07qrAMld8M5NADpxE kknJBqQvNrfMR6bR1wUSo esizou7eafury Wscki5tvxt62uE22X29hS RozFKWhQAW4XYEeCTNzfH ppdf2nqI6bWc5+CRlpg5q px3ecuKw6FxJh ORZinuAwkQirZSY9l6YvN t08A2YwcKtqt6McAwq8xp 88mAUjn9W0pXL9KOqwPYB ieN8oTLheQyM2 CJCaOcEksI68fXLrVJpyZ w7scUyejOtdSM1dXWVwaq mdUKFypJ1vYKEtjDIweLs aUK2dPSLzmren i903DwTlACU3QLJphGTqF 6NkjG2qWhCiGAWxVRTgR2 NtdRYlOWhwD326ZAwlJzS 5BESnxtGoQ9Kp WNGxhPwtYpT9z3S7Jl2Vo 8KqagbsOWH4PHojKVC5Jo NnHpGnZsF9K5PmTgi8KIB ilVsaQI1zY4Vt WFKvjznhdormyEO1DASmP FPevY96fYTmVPejBh1ke3 Q7l536VZUgLYVbyY08Ab1 udDogMTBwdCBU mW5oncthu2ndjgooUlIjM FDtIZe1AQf9QQYqxZhqXj DnUEY1HtF6MMX8cUAlxS7 ekGijbsbrkW7q Oyc+U13ypL9aHVC2CPH3z dtiAAOzogGpFO43MF76C2 RyPjwvdGFibGU+PGRpdiB eqEulDH2tQcXr s4bys7HtSMrrU1EqFWOyW NtlSec0ETTtBTV5oAS6xC 2zDGUwNQjyi2S5oOZ7P9X hslVwnr8sd6jb KEZjVItzI36lgSRob3Q0Q PCxjCA3GTWkhUyiMfVulL 93Oyc+CMSwdIpya2YtKvs eh1hkv5jwpVa3 DdEoFBDxjzUroAgzUWQ3p 9IdTc03Y99eVNdhEOZsLN MvMXAnJLMpdWznyr8kaY2 wIi8+PGNvbCB3 aBB0hZ5iXSXuXxG6GZybD 313JfIbzJUqWdalu3qkz5 rjdYl6KlYaGEAxywLilEr aCTH8q1FbKj73 B20mKStqNRKmEKQqVADhX GVafZmwmz7wfC9rVs7+PC 0kj1rklj60dH18iSR+PHR nDCZ0iDqaRIxt NUFuoM3oMFxpXqC1WUIqW wXhuV29kWGqUVrjRf3tsX kspHklBZ7zDHIpyyboq89 6WdSzs4zzQCPt wZLlHHugMDD2L27mh3U9A RXePQGeLRG5rUM7nZ9foV lnbjogbGVmdDsgdmVydGl jYUtjLDouM574 IHRvcDsnPlBhdGllbnQgT vJqITr1V6NuWmy0YGVfnU ugJJ3atXYyCMldTh9lxIf zuApbQL9uGLYe wynwh870BdRjl2kkLKDld CUlQUjfJZX2B15ws9H7OF ZnVQPnJLG7sWX4jY6dhIu nbjogbGVmdDsg toEfjQeaMBunKAdjS610H HRvcDsnPkJpcnRoIERhdG R4NY30OK01kRTzo1R6gUA 9Z5MjNYXiwmhj gfjrkOQ2OBCxBVXjoE67E l0esSisPi5wWVIdGFH8OC PvaRJpC4PadX6zDvIjMGG qJMWaI2BqpXOc EDibS278IYkvZwI4ESJgn wTqC4PsCZRfwJhgSbS4q7 L8Yf2PA4H8TY97FR21lLR lq6H0kOU1A6Oe YQKwzzlgwnhyhQX1VYAjV NHddG88Sa2luQthQe7vTT GxPTG3FUWtsMPsM0BvnF3 yOiAjMDAwMDAw F0IxcOOyEJauI303KUrxF gA8FONlkeTqY7ZcSGEntL liTyE8s9V4Xr6BPCn0AS1 2XB48gDVtx3I8 eAB7V9SvHFKklliqliggb XK2WUVmBTSxxU36Pp0kpC ewZq7rNXVkTJU9OQBxfAG aP6NenV8kZoVl OJOzJMJvX7HflLXaUJrxO 149PJjtPwU8FPOoimPrE4 NtVRGgmSucSbL3z2X4Vb1 FIGBxKV59DQI5 cQP1ZV28SQ34P7WyJipkq GFibGU+PHRhYmxlIHdpZH RoPScxMDAlJyBzdHlsZT0 vBt6nDLKeRKLq xLchsGXcSdJnn3uwGAVwC RirJR8kqDefN5ZnsRX6QK Dea6y9Ud66A70mW0ZvrFI +TGVbmHO6wDC9 dL7fGqAbOlE6ZXszS868K tCvyNTuRvnah9xpn8vvlD q3JuE5VFLhvxDbjOwtCXJ 4w4SnGa85H08h IHdpZHRoPSIxNSUiIHZhb Nkpsb3ddF3wBy2+PGNvbC U2qOC7jF9kGdTjMfB9EEx gN344IiKenHNt Okawn4xjj5zzuZf7UyOmU JXcuhRrrPnxGIU2j2XhPf 49J7UtnHqke8PjWpj1nf0 6vANuz7K8uSZ3 C1JcVJCvgtkvkWUnlQmdI V6eJQGxviusCZIpqC7yKM VvQ9b0QaIuSyI6FQujH6H zcxI5WDGdhAWp CHtkRWH1M81vl9E9JMFtR HIpDWQ2iBD4iR3ttYwtwv ogbGVmdDsgdmVydGljYWw xLFloK671UNFu qQewLQSulU8yPLNtpMDev SqzXO7jORGjqxteEj4UJ4 AYCspdE2qPXo2GWKS7G2E xOgu3YJZlmSlm TF2uzYJaKFfdPq6ixAyxu SioOS8bWSWpgrqhIWEapM 6pUGCtgDLmbTgaCC7kWSQ lbjxui917FzAd FGN8XLHjsOUgU5WkzS4wZ zMdMJWiHNXiB9BxyZNnHD jsZ962IZvuXtD7JWDslwI aS0WgZGVxhVmj GoU8n5A2Zr2mTB8gOe4kU OJuJP59RS83jTXxs0A4iR L3Q2ElUQSubqlmuzwwbPO 7ZPMsYEAhkI95 kZWqMMetMp9ar4O2y112B MQtIVJhiD70Co9idXxxHL CquJFVmY8ilatxd7mwvzy gIzAwMDAwMDt0 LMo3QKNenOloKiGlPLA3R wZ9HKS2gMPunA2mzXkzda njfL9tFlb+NjkgWWVhcnM 8R5CzMoy9SQZx oYvaKF1idDSjQWwgKw1we VvhoBmcYN4fFMNqbdzmDE LecW0yGSGvvPXixFjvQH2 uPXKrqhdxy662 DdBnXUZ6LMTsiEAgL6Axq F1wOzCxLWTfAPYkM9ZlwG XfUXqwN240NPpkSzN0WWN gpgBbH5CfRBDr qKgkWwB0o3H1Fr2JEB7nq HR1X9DyOoz1QTWhkBwcBR 0qdTGaACmlVw5qnUvbkYh dBA0tKNYeqzkx MFXsvP4mOREswVYlcSzjP J1wXORvgufyj387TsEkTP Y2NQCgzSYtY7FbhG7tGcD cYZMyJZRuV8Wz uUWoZAvqP827MFcpZxQ7R KRsrlLdA7HtIYSqvFlrFf Q9j4I9Xw8HNVNaABGwhTN jPyT4F7ZtMatd dHI+WR38KXRgOP49nDRqr TDwt2vjbNu3PuUwGUBpBY P2kYlaDZhoz5IfSQZgZ32 wpAVic5M1AMYg nKsdkRSmBoVzaUF1cT0vS Sdljxspf6nnjfawHblkp1 qqbh55yD17H98oGMngAAM oPSIzMCUiIHZh iOjthj3crR7aVg5+PGNvb FY5jPC7zT6oOnQyNsC7DC buN025ZtDshQYsPotcg6t jh6rrgAt0SaNc NBTkolZagOjyAOK6j8NrX l31O61iEMysTTNyDLEvHN ZfOGYsyZexvf5tmE6pJh9 +OM4as8xwrh86 eV00nFX+NSNgXMG9fHdxW YxrAPBpsM9aYBpwFjD5ZJ MiYzThgJ99hIQgSYhiJl4 lhYyrlPhvTH8v ALNfgrrdo169DcVup6exA BVipVYzMJgyREA0A51jo0 H6UDPwHNHvLUF3kMG8vZ9 hbGlnbjogbGVm dDsgdmVydGljYWwtYWxpZ 288JKTkwKlkWpLlvBZqB0 mgrtNGKB1zRjindRD+PHR sWBJ3vSfzCEnf ORJcvI9cJMOuS5p4FoOdL fS3QQxuF3ZvnoL2UBZvsP IhEYZnmVVEvC8hmapao7j vcjogIzAwMDAw XFm7JPk3WXBnlRfgEuBhT UA7UlG7YZV9wBDrcF9hgJ xohgcsaC0lPxu+RklOOjw vdGQ+PHRkIHN0 jLdgXFdoAWGtpE0aQYReK 7m1IfQwYgX7PNljO2Cksr O2RODwaHRsVVKazMMSjK9 osydje6xaintx WyEaLHTfKCn1FHh8EAUzr NzzJqZuHIW7KfI5RCC5dV MjeQ7jaNblhvpyuE4rLuq +TVJOOjwvdGQ+ DNKqDLI7vPweVHvuEHHpo G4yMRGaG7p3MxWdFxV8LH ioU8CbulZ2DOVauINhOIN slNQZtF6enezk m6tndedkJlWdPTWfUZs3Y Eo9FYYsuJecYoLnEKM0Ek W3DSQ0lLXhzX4wkQrxojz vwB7gHfn+UGF5 OYO9AB11AG23Y2FrJraka GFibGU+PHRhYmxlIHdpZH RoPScxMDAlJyBzdHlsZT0 kEr2uJPRxYSXx bGxh (more content not included)... [facility] Consent for Procedure/Surger yon 12-16-2020 Consent for Procedure/Surgery [id number] #1.00CD:127 [facility] Formson 12-16-2020 Forms [id number]#1. 00CD:127 [facility] Lab Reportson 12-16-2020 Lab Reports [id number]#1. 00CD:127 [facility] Physician Referralon 021 Physician Referral [id number]#1 .00CD:127 [facility] RAD - MISCon 12-16-2020 RAD - MISC [id number] #1.00CD:127 [facility] RAD - Ultrasound Reporton RAD - Ultrasound Report [id number]#1 .00CD:127 [facility] Ambulatory Clinical Summaryo n 12-15-2020 Ambulatory Clinical Summary {[id number]-d6-44-dc-4c -59-w6-88-d7-21-52-c3 -f8-10}CD:[id number] [facility] Patient Educationon 12-16-19 Patient Education Urology Hematuria, [...] these instructions at home: Medicines ? Take hpda-ijv-rhbbpxm and prescription medicines only as told by [...] the blood stops without treatment. ? Take orus-csx-imyjdda and prescription medicines only as told by your health care provider. ? Drink enough fluid to keep your urine clear or pale yellow. This information is not intended to replace advice given to you by your health care provider. Make sure you discuss any questions you have with your health care provider. Document Released: 06/19/2006 Document Revised: 11/13/2019 Document Reviewed: 07/22/2017 [facility] Patient Education ? 2019 [email or web address] [facility] Urology Office/Clinic Noteon 06-15-2021 Urology Office/Clinic Note Chief Complaint Cysto/UD HPI [...] The Urethra was dilated to: _18- 30 Vincentian with sounds. Specimens Removed: None Removal: Cystoscope [...] URL [facility] [address], [place] [address]- [phone] Additional Instructions: f/u PRN Patient Education Hematuria, [...] 50,000 intl units (1.25 mg) oral capsule, 00206 International_Unit= 1 cap(s), Monday Zioptan 0.0015% ophthalmic solution Allergies erythromycin (Anaphylactic reaction) penicillin (Hives) Social History [employer] (more content not included)... [facility] Comment on above: Result Comment: Elec tronically Signed By: Marcos KWON MD\.br\Date and Time Signed: 12/15/20 15:58 EDT\.br\Electronically Co-Signed By: Donna Hartley\.br\Date and Time Co-Signed: 12/15/20 15:56 EDT Reminderson 12-14-2020 Reminders - From: Augusta Singh To: [facility] - Clinical; Sent: 12/11/2020 13:29:41 EDT Show up: 12/14/2020 13:29:00 EDT Subject: Urine culture Reminder/Recall Urine Culture PRW reviewed positive culture. [facility] C Urineon 12-13-2020 Bacteria identified Cx Nom (U) Microbiology PROCEDURE: Urine Culture [R1] SOURCE: U Random BODY SITE: COLLECTED DATE/TIME: 12/11/2020 13:25 EDT RECEIVED DATE/TIME: 12/11/2020 18:10 EDT START DATE/TIME: 12/11/2020 18:10 EDT FREE TEXT SOURCE: Marcos KWON MD, MD, Marcos Abreu FINAL REPORTS Final Report [...] Locations R1: This test was performed at: [facility], [address] [place] [address], [address] , [place], [facility] Comment on above: Performed By: #### 2 [id number] ####[facility] [address] [place] [address] Ambulatory Clinical Summaryo n 12-11-2020 Ambulatory Clinical Summary {[id number]-c1-ff-d3-6c -b8-cc}CD:[id number] [facility] Ambulatory Clinical Summary {[id number] -[id number]-[id number]-5d-8d-13 -29-0f}CD:[id number] [facility] Ambulatory Clinical Summary {[id number] -[id number]-2b-c5 -e6-1f}CD:[id number] [facility] Patient Educationon 12-12-19 Patient Education Urology [...] these instructions at home: Medicines ? Take xisc-gbi-qzwwjbb and prescription medicines only as told by [...] the blood stops without treatment. ? Take tqzi-mpt-vbehksu and prescription medicines only as told by your health care provider. ? Drink enough fluid to keep your urine clear or pale yellow. This information is not intended to replace advice given to you by your health care provider. Make sure you discuss any questions you have with your health care provider. Document Released: 06/19/2006 Document Revised: 11/13/2019 Document Reviewed: 07/22/2017 [email or web address] Patient Education ? 2019 [employer]. 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 Jenkins due to Hematuria. Pt states that since the End of October she has been feeling a slight squeeze, no pain associated with this. Pt had a Renal US done at [facility]. Pt states that she has a [...] Marcos Abreu, URL [address] [place] [phone] Additional Instructions: Patient Education Hematuria, Adult I, [...] mg Tab amLOD (more content not included)... [facility] Comment on above: Result Comment: Elec tronically Signed By: CHER VIGIL, Marcos Abreu\.br\Date and Time Signed: 12/11/20 11:17 EDT\.br\Electronically Co-Signed By: Lashanda HAINES, Regla Webster\.br\Date and Time Co-Signed: 12/11/20 11:12 EDT Lab Reportson 11-16-2020 Lab Reports [id number]#1 .00CD:127 [facility] Lab Reports [id number]#1 .00CD:127 [facility] RAD - Ultrasound Reporton RAD - Ultrasound Report [id number]#1 .00CD:127 [facility] IntraOperative Documentson 1 07-12-2019 IntraOperative Documents [id number]# 1.00CD:127 [facility] Message from Medicareon Message from Medicare [id number]#1.0 0CD:127 [facility] Coding Summary.on 05-06-2020 Coding Summary. CODING DATE: 05/06/2020 FINAL [facility] STATUS: Home (Routine DC) PAYOR: Medicare [...] PROC APC STAT DESCRIPTION DOCTOR NAME DATE 85887 0 J1 Arthroscopy, knee, David Talamantes DO 05/01/2020 surgical; with meniscectomy (medial OR lateral, including any meniscal shaving) including debridement/shaving of articular cartilage (chondroplasty), same or separate compartment(s), when performed LT Left side (used to identify procedures performed on the left side of the body) [address] Anesthesia for open or Gurmeet Aldridge Jr, DO 05/01/2020 surgical arthroscopic procedures on knee joint; not otherwise specified NOTE: The code number assigned matches the documented diagnosis and / or procedure in the patient's chart. However, the narrative phrase printed from the coding software may appear abbreviated, or result in slightly different terminology. Revised Coded By: Carmita Bwoers Revised Date Saved: 05/06/2020 11:55 am [facility] Insurance Correspondence Off iceon 05-05-2020 Insurance Correspondence Office [id number]# 1.00CD:127 [facility] Main OR Intraoperative Recor don 05-05-2020 Main OR Intraoperative Record IntraOp Document Type FT Summary Primary Physician: David Talamantes DO Finalized Date/Time: 05/05/20 14:09:46 Pt. Name: CLAUDIA ESTRELLA/Sex: 1950 Female Med Rec #: [id number] Physician: Daivd Talamantes DO Financial #: [id number] Pt. Type: O Room/Bed: N217/01 Admit/Disch: 05/01/20 [...] Role Performed Anesthesiologist of Surgeon - Primary Agriculture Inspector - Primary Record Time In 05/01/20 14:26:00 05/01/20 14:39:00 05/01/20 14:26:00 Time Out 05/01/20 15:04:00 05/01/20 15:04:00 05/01/20 15:04:00 Procedure KNEE ARTHROSCOPY(Left) KNEE ARTHROSCOPY(Left) KNEE ARTHROSCOPY(Left) Comments Last Modified By: Edgar RN, Viky Hernández RN, Viky Krueger RN 05/01/20 15:04:35 05/01/20 15:04:35 05/01/20 15:04:35 Entry 4 Entry 5 Entry 6 Case Attendee Maxim RN, Augusta Castro AGRICULTURAL LENDER, Leatha Flowers RN, CNOR, Cee Role Performed Agriculture Inspector - Primary Scrub - Primary Agriculture Inspector - Relief Time In 05/01/20 14:26:00 05/01/20 14:26:00 05/01/20 14:57:00 Time Out 05/01/20 15:04:00 05/01/20 15:04:00 05/01/20 15:04:00 Procedure KNEE ARTHROSCOPY(Left) KNEE ARTHROSCOPY(Left) KNEE ARTHROSCOPY(Left) Comments orientation Last Modified By: Edgar RN, Viky Hernández RN, Viky Krueger RN 05/01/20 15:04:35 05/01/20 15:04:35 05/01/20 15:04:35 Perioperative [...] Gurmeet Mcdonough, Given Participants David Talamantes DO, Edgar WU, Maxim Reid RN, Matthew Crain CST, Leatha [...] and tissue Entry 1 Skin Integrity Intact, [place], Warm, and Skin Abnormality No Dry Outcomes Met? Yes Last Modified By: Viky Hernández RN 05/01/20 14:46:48 Post-Care Text: The patient is free from signs and symptoms of injury caused by extraneous objects Patient Positioning FT Pre-Care Text: Identifies physical alterations that require additional precautions for procedure-specific positioning, verifies presence of prosthetics or corrective (more content not included)... [facility] Progress Note-Physicianon Progress Note-Physician Patient: CLAUDIA [...] volume (mL): 1,000, 68.3 kg, 1.64, m2 Foley 5/325 Tab: 1 tab(s), Tab, Oral, q4hr [...] date 04/28/20 18:05:00 EDT Documented Medications Documented Glennar KaterineikPen: 15 unit(s), SubCutaneous, TID, High blood sugar [...] Problems DM kidney disease / SNOMED CT 126459990 / Confirmed PVD (peripheral vascular disease) / SNOMED CT 5930802440 / Confirmed MMT (medial meniscus tear) / SNOMED CT 962152656 / Confirmed Resolved: Ocular herpes zoster / SNOMED CT 172696452 Resolved: HTN (hypertension) / SNOMED CT 0359170781 Canceled: Diabetes / SNOMED CT 787524251 Histories Past Medical History: No active or resolved past medical history items have been selected or recorded. Family History: No family history items have been selected or recorded. Procedure history: Right eye cataract extraction and insertion of intraocular lens (7777549051) on 11/19/2019 at 69 Years. Cataract extraction and insertion of intraocular lens (6810593040) on 11/06/2019 at 69 Years. Comments: 11/06/2019 14:13 EDT - Fabian WU, Loreto Abreu Left Appendectomy (977138753). section x2 (45632610). Cholecystectomy (06295234). Anesthesia for laparoscopic procedure on lower abdomen (35449023). Cheilectomy of tarsal foot (2812986675). Social History Social & Psychosocial Habits Alcohol [...] results Radiology results ECG interpretation Condition Plan Citizen Of The [place] Society of Anesthesiologists (ASA) physical status classification: Class III. Anesthetic Preoperative (more content not included)... [facility] Comment on above: Result Comment: Elec tronically Signed By: Gurmeet Aldridge Jr, DO\naye\Date and Time Signed: 05/05/20 08:22 EST Progress Note-Physician Patient: CLAUDIA ESTRELLA Age: 70 years Sex: Female : 1950 Associated Diagnoses: None Author: Gurmeet Aldridge Jr, DO Postoperative Information Post Operative Note: Post Anesthesia Care Unit. Anesthetic utilized: General. Health Status Allergies: Allergic Reactions (Selected) Severity Not Documented Erythromycin- Anaphylactic reaction. Penicillin- Hives. Problem list: All Problems DM kidney disease / SNOMED CT 206551484 / Confirmed PVD (peripheral vascular disease) / SNOMED CT 7727874832 / Confirmed MMT (medial meniscus tear) / SNOMED CT 163385982 / Confirmed Resolved: Ocular herpes zoster / SNOMED CT 355192432 Resolved: HTN (hypertension) / SNOMED CT 5207228029 Canceled: Diabetes / SNOMED CT 283375798 Physical Examination Vital Signs 05/01/2020 16:58 EDT [...] F/U Plan Transfer/ Discharge: Condition stable. [facility] Comment on above: Result Comment: Elec tronically Signed By: Gurmeet Aldridge Jr, DO\naye\Date and Time Signed: 05/05/20 08:22 EST Capillary Glucose POCon Glucose [Mass/Vol] 149 mg/dL High 55-99 [facility] Comment on above: Result Comment: Monty MEDEIROS Performed By: #### 2 [id number] #### [facility] [address] [place] [address] Glucose [Mass/Vol] 127 mg/dL High 55-99 [facility] Comment on above: Result Comment: Monty MEDEIROS Performed By: #### 2 [id number] #### [facility] [address] [place] [address] Consent for Anesthesiaon Consent for Anesthesia [id number]#1 .00CD:127 [facility] Discharge Instructionson Discharge Instructions [id number]# 1.00CD:127 [facility] Inpatient Clinical Summaryon 05-04-2020 Inpatient Clinical Summary [address] [address] Clinical Summary Person Information: Name: CLAUDIA ESTRELLA Age: 70 Years : 1950 Sex: Female PCP: JOHN PERDOMO DO Marital Status: Race: White Ethnicity: Non- or Language: [place] Islander Visit Id: Visit Reason: LEFT KNEE BONE BRUISE, MEDIAL MENISCUS TEAR, EFFUSION Speciality: Acuity: Enc Type: Observation Med Service: Surgery Arrival: 05/01/2020 11:43:14 Discharge: Dispo Type: Address: [place] [address] Provider Notes: Diagnosis: 1:Other chest pain; 2:Hypertension; [...] up: With: Address: When: Follow up with Warp Knitting Machine Operator Within 1 week With: Address: When: JOHN PERDOMO [facility] [place] [place] [address] [address] Business (1) With: Address: When: David Talamantes [address] [place] [address] Business (1) Comments: Keep scheduled appointment Patient Education Information: Post Op Patient Instructions - FT (Custom); Knee Cryocuff Patient Instructions - FT (Custom); Talamantes - Knee Arthroscopy (Custom) (CUSTOM) [facility] Inpatient Patient Summaryon 05-04-2020 Inpatient Patient Summary [place] [address] Patient Discharge Instructions PERSON INFORMATION Name: CLAUDIA [...] as instructed Remove Dressing On : 2 Talamantes David FAIR Guilherme Gleason 04/28/2020 18:06 EDT Primary Care Physician to provide the following pending test results: None Follow up: With: Address: When: Follow up with Warp Knitting Machine Operator Within 1 week With: Address: When: JOHN PERDOMO [facility] [place] [address] Business (1) With: Address: When: David Talamantes [address] [place] [address] Business (1) Comments: Keep scheduled appointment In the event that this physician does not participate in your insurance network, please consult with your insurance company to find a nearby participating provider. Comment: ISAMEER SHARON E, have received the attached patient education materials/instruction s and have verbalized understanding: Patient Signature Date Clinican/Nurse Signature Date HERE ARE THE MEDICATION CHANGES THAT OCCURRED DURING YOUR HOSPITAL STAY New Medications [id number], [address], [place] [id number], [phone] atorvastatin (Lipitor 20 mg Tab) 1 Tablets [...] amlodipine (amLO (more content not included)... [facility] Interdisciplinary Note - PTo n 05-04-2020 Interdisciplinary Note - PT PT Screen performed. Pt was able to stand and ambulate throughout room without difficulty and without an AD. Pt also demos appropriate ROM to knee. Would recommend to f/u with Ortho to determine if therapy is needed in the future, but no PT needed at this time [facility] IntraOperative Documentson 1 07-04-2019 IntraOperative Documents [id number]#1 .00CD:127 [facility] IntraOperative Documents [id number]#1 .00CD:127 [facility] Message from Medicareon 110 Message from Medicare [id number]# 1.00CD:127 [facility] Monitor Recordon 05-04-2020 Monitor Record [id number]# 1.00CD:127 [facility] Monitor Record [id number]# 1.00CD:127 [facility] Monitor Record [id number]# 1.00CD:127 [facility] Patient Education - Texton 1 07-04-2019 Patient Education - Text [place], [place] [facility] DISCHARGE INSTRUCTIONS: KNEE ARTHROSCOPY [...] your appointment. David Talamantes, DO [facility] [address] [place] [address] Reviewed: 10-08 [facility] Preoperative Documentson Preoperative Documents [id number]#1 .00CD:127 [facility] Preoperative Documents [id number]#1 .00CD:127 [facility] Prescriptions/Work Noteson 1 07-04-2019 Prescriptions/Work Notes [id number]#1 .00CD:127 [facility] Capillary Glucose POCon 11-0 Glucose [Mass/Vol] 183 mg/dL High 55-99 [facility] Comment on above: Performed By: #### 2 [id number] #### [facility] [address] [place] [address] Glucose [Mass/Vol] 155 mg/dL High 55-99 [facility] Comment on above: Performed By: #### 2 [id number] #### [facility] [address] [place] [address] Glucose [Mass/Vol] 113 mg/dL High 55-99 [facility] Comment on above: Result Comment: Monty MEDEIROS Performed By: #### 2 [id number] ####[facility] [address] [place] [address] Glucose [Mass/Vol] 112 mg/dL High 55-99 [facility] Comment on above: Performed By: #### 2 [id number] #### [facility] [address] [place] [address] Glucose [Mass/Vol] 85 mg/dL Normal 55-99 [facility] Comment on above: Result Comment: Monty MEDEIROS Performed By: #### 2 [id number] #### [facility] [address] [place] [address] Glucose [Mass/Vol] 59 mg/dL Normal 55-99 [facility] Comment on above: Result Comment: Monty MEDEIROS Performed By: #### 2 [id number] #### [facility] [address] [place] [address] Consultation Noteon 05-03-20 Consultation Note HOSPITAL REGULATIONS [...] left knee and elevate. Eh Carter DO [facility] Dictated: 05/02/2020 #[id number] Typed: 05/02/2020 #[id number] cc: DO David Nieto D.O. [facility] Comment on above: Result Comment: Elec tronically Signed By: Eh Carter DO\.br\Date and Time Signed: 05/03/20 10:27 EST Monitor Recordon 05-03-2020 Monitor Record [id number]# 1.00CD:127 [facility] Monitor Record [id number]# 1.00CD:127 [facility] Operative Reporton 0 Operative Report Date [...] The patient's condition satisfactory David Talamantes D.O. [facility] Dictated: 05/01/2020 #[id number] Typed: 05/01/2020 #[id number] cc: Randa Lanier D.O. [facility] Comment on above: Result Comment: Elec [...] mg/dL High (05/03/20 12:18:00) POC Device SN: [id number] (05/03/20 12:18:00) POC Username: JOSESITO BROWN (05/03/20 [...] 0.4 mg= 1 tab(s), SubLingual, q5min, PRN Foley 5/325 Tab, 1 tab(s), Oral, q4hr, PRN [...] ophthalmic emulsion, 1 drop(s), Eye-Both, BID [facility] Comment on above: Result Comment: Elec [...] mg/dL High (05/03/20 07:32:00) POC Device SN: [id number] (05/03/20 07:32:00) POC Username: POC Username (05/03/20 [...] to obtain her records from her primary emergency medicine specialist once 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 Continue [...] PRN L (more content not included)... [facility] Comment on above: Result Comment: Elec tronically Signed By: Eleuterio VIGIL, John Marin.br\Date and Time Signed: 05/03/20 07:45 EST Capillary Glucose POCon 10-3 Glucose [Mass/Vol] 212 mg/dL High 55-99 [facility] Comment on above: Performed By: #### 2 [id number] #### [facility] [address] [place] [address] Glucose [Mass/Vol] 138 mg/dL High 55-99 [facility] Comment on above: Performed By: #### 2 [id number] #### [facility] [address] [place] [address] Glucose [Mass/Vol] 139 mg/dL High 55-99 [facility] Comment on above: Performed By: #### 2 [id number] #### [facility] [address] [place] [address] Glucose [Mass/Vol] 105 mg/dL High 55-99 [facility] Comment on above: Performed By: #### 2 [id number] #### [facility] [address] [place] [address] Glucose [Mass/Vol] 233 mg/dL High 55-99 [facility] Comment on above: Result Comment: Monty pelayo RN/ Performed By: #### 2 [id number] ####[facility] [address] [place] [address] Lipid Panelon 05-02-2020 Cholesterol [Mass/Vol] 160 mg/dL Normal 120-200 [facility] Comment on above: Performed By: #### 2 [id number] #### [facility] [address] [place] [address] Cholesterol in HDL [Mass/Vol] 49 mg/dL Invalid Interpretation Code [facility] Comment on above: Result Comment: HDL > or equal to 60 mg/dL: Low cardiovascular risk HDL < 40 mg/dL : High cardiovascular risk Performed By: #### 2 [id number] #### [facility] [address] [place] [address] Cholesterol in LDL [Mass/Vol] 98 mg/dL Normal <=129 [facility] Comment on above: Performed By: #### 2 [id number] #### [facility] [address] [place] [address] Cholesterol in VLDL [Mass/Vol] 12 mg/dL Normal 7-40 [facility] Comment on above: Performed By: #### 2 [id number] #### [facility] [address] [place] [address] Triglyceride [Mass/Vol] 61 mg/dL Normal <=149 [facility] Comment on above: Performed By: #### 2 [id number] #### [facility] [address] [place] [address] Monitor Recordon 05-02-2020 Monitor Record [id number]# 1.00CD:127 [facility] Progress Note-Physicianon Progress Note-Physician Assessment/Plan 1. [...] (05/01/20 18:27:00) (more content not included)... [facility] Comment on above: Result Comment: Elec tronically Signed By: JUN VIGIL, Nhung\.br\Date and Time Signed: 05/02/20 10:00 EDT Troponin 3 Hr.on 05-02-2020 Troponin I.cardiac [Mass/Vol] 3.60 pg/mL Low 10.10-.10 [facility] Comment on above: Result Comment: The 95% CI (Confidence Interval) PPV (Positive Predictive Value) for myocardial infarction in females is 38 pg/mL, in males 51 pg/mL. The results should be used in conjunction with clinical conditions of myocardial infarction. (Access High Sensitivity Troponin I Instructions For Use, Wilfrido Austin, January 2018) Performed By: #### 2 [id number] #### [facility] [address] [place] [address] Troponin 6 Hr.on 05-02-2020 Troponin I.cardiac [Mass/Vol] 3.90 pg/mL Low 10.10-27.10 [facility] Comment on above: Result Comment: The 95% CI (Confidence Interval) PPV (Positive Predictive Value) for myocardial infarction in females is 38 pg/mL, in males 51 pg/mL. The results should be used in conjunction with clinical conditions of myocardial infarction. (Access High Sensitivity Troponin I Instructions For Use, [employer], January 2018) Performed By: #### 2 [id number] #### [facility] [address] [place] [address] Troponin 9 Hr.on 05-02-2020 Troponin I.cardiac [Mass/Vol] 5.10 pg/mL Low 10.10-27.10 [facility] Comment on above: Result Comment: The 95% CI (Confidence Interval) PPV (Positive Predictive Value) for myocardial infarction in females is 38 pg/mL, in males 51 pg/mL. The results should be used in conjunction with clinical conditions of myocardial infarction. (Access High Sensitivity Troponin I Instructions For Use, [employer], January 2018) Performed By: #### 2 [id number] #### [facility] [address] [place] [address] US Carotid Duplex Bilateralo n 05-02-2020 US [...] ECA (cm/sec): 199/15 Vert. Antegrade Yes [facility] Auto Diffon 05-01-2020 Basophils/100 WBC (Bld) 0.4 % Normal 0.0-2.0 [facility] Comment on above: Order Comment: Order Added by Discern Expert. Performed By: #### 2 996018, [id number], 7339559, 8692935 #### [facility] [address] [place] [address] Basophils/Leukocytes Auto (Bld) [Pure # fraction] 0.0 E9/L Normal 0.0-0.2 [facility] Comment on above: Order Comment: Order Added by Discern Expert. Performed By: #### 2 389139, [id number], 7306847, 4728096 #### [facility] [address] [place] [address] Eosinophils/100 WBC (Bld) 1.2 % Normal 0.0-8.0 [facility] Comment on above: Order Comment: Order Added by Discern Expert. Performed By: #### 2 384854, [id number], 0194421, [id number] #### [facility] [address] [place] [address] Eosinophils/Leukocyte s Auto (Bld) [Pure # fraction] 0.1 E9/L Normal 0.0-0.5 [facility] Comment on above: Order Comment: Order Added by Discern Expert. Performed By: #### 2 462987, [id number], 7917746, 8614912 #### [facility] [address] [place] [address] Lymphocytes/100 WBC (Bld) 9.7 % Low 14.0-50.0 [facility] Comment on above: Order Comment: Order Added by Discern Expert. Performed By: #### 2 197633, [id number], 5235588, 6779802 #### [facility] [address] [place] [address] Lymphocytes/Leukocyte s Auto (Bld) [Pure # fraction] 1.0 E9/L Normal 1.0-4.0 [facility] Comment on above: Order Comment: Order Added by Discern Expert. Performed By: #### 2 053615, [id number], 5630179, 8211888 #### [facility] [address] [place] [address] Monocytes/100 WBC (Bld) 4.2 % Normal 4.0-14.0 [facility] Comment on above: Order Comment: Order Added by Discern Expert. Performed By: #### 2 839538, [id number], 0446584, 0550400 #### [facility] [address] [place] [address] Monocytes/Leukocytes Auto (Bld) [Pure # fraction] 0.4 E9/L Normal 0.2-1.0 [facility] Comment on above: Order Comment: Order Added by Discern Expert. Performed By: #### 2 013239, 59474942, 7361679, 1301643 #### [facility] [address] [place] [address] Neutrophils/100 WBC (Bld) 84.5 % High 36.0-75.0 [facility] Comment on above: Order Comment: Order Added by Discern Expert. Performed By: #### 2 086526, [id number], 3429955, 9762793 #### [facility] [address] [place] [address] Neutrophils/Leukocyte s Auto (Bld) [Pure # fraction] 8.9 E9/L High 2.0-7.5 [facility] Comment on above: Order Comment: Order Added by Discern Expert. Performed By: #### 2 937028, 79818786, 2091526, 6841735 #### [facility] [address] [place] [address] BMPon 05-01-2020 Calcium [Mass/Vol] 8.9 mg/dL Normal 8.9-11.1 [facility] Comment on above: Performed By: #### 2 103382, [id number], 3606197, 6104751 #### [facility] [address] [place] [address] Anion gap [Moles/Vol] 10 mmol/L Normal 6-16 [facility] Comment on above: Performed By: #### 2 439327, 47303465, 2769347, 2264649 #### [facility] [address] [place] [address] Chloride [Moles/Vol] 103 mmol/L Normal 101-111 [facility] Comment on above: Performed By: #### 2 193009, 52840261, 4046209, 9418557 #### [facility] [address] [place] [address] CO2 [Moles/Vol] 24 mmol/L Normal 21-31 [facility] Comment on above: Performed By: #### 2 204287, 05609781, 5116092, 8774428 #### [facility] [address] [place] [address] Creatinine [Mass/Vol] 1.6 mg/dL High 0.5-1.3 [facility] Comment on above: Performed By: #### 2 486172, 75153558, 9554993, 5280846 #### [facility] [address] [place] [address] Glucose [Mass/Vol] 167 mg/dL Normal 55-199 [facility] Comment on above: Result Comment: If t his glucose result represents a fasting glucose, interpretation should refer to the following reference range: 55-99 mg/dL Performed By: #### 2 911643, [id number], 7760056, 0639101 #### [facility] [address] [place] [address] Potassium [Moles/Vol] 3.9 mmol/L Normal 3.5-5.3 [facility] Comment on above: Performed By: #### 2 880897, 35297288, 1019645, 0244155 #### [facility] [address] [place] [address] Sodium [Moles/Vol] 133 mmol/L Low 135-145 [facility] Comment on above: Performed By: #### 2 414973, 86619567, 7557669, 5360015 #### [facility] [address] [place] [address] Urea nitrogen [Mass/Vol] 34 mg/dL High 5-21 [facility] Comment on above: Performed By: #### 2 862210, 43733265, 9886292, 3238551 #### [facility] [address] [place] [address] Urea nitrogen/Creatinine [Mass ratio] 21 No Units High 10-20 [facility] Comment on above: Performed By: #### 2 176248, 83863716, 4876228, 5611636 #### [facility] [address] [place] [address] CBC w/ Auto Diffon 10-30-202 0 Erythrocyte distribution width (RBC) [Ratio] 13.0 % Normal 10.9-14.2 [facility] Comment on above: Performed By: #### 2 028387, 39445857, 3734538, 2360020 #### [facility] [address] [place] [address] Hematocrit (Bld) [Volume fraction] 32.4 % Low 34.0-46.0 [facility] Comment on above: Performed By: #### 2 798521, 44750299, 5897987, 6247773 #### [facility] [address] [place] [address] Hemoglobin (Bld) [Mass/Vol] 11.2 g/dL Low 12.0-16.0 [facility] Comment on above: Performed By: #### 2 454609, 07309888, 2601848, 1621389 #### [facility] [address] [place] [address] MCH (RBC) [Entitic mass] 29.6 pg Normal 27.0-34.0 [facility] Comment on above: Performed By: #### 2 441075, 45048578, 7530416, 7667976 #### [facility] [address] [place] [address] MCHC (RBC) [Mass/Vol] 34.6 g/dL Normal 31.4-36.0 [facility] Comment on above: Performed By: #### 2 917317, 26701818, 4542244, 1052357 #### [facility] [address] [place] [address] MCV (RBC) [Entitic vol] 85.5 fL Normal 80.0-100.0 [facility] Comment on above: Performed By: #### 2 708670, 33550170, 8074298, 4785959 #### [facility] [address] [place] [address] Platelet mean volume (Bld) [Entitic vol] 8.4 fL Normal 6.4-10.8 [facility] Comment on above: Performed By: #### 2 916076, 77067626, 9366979, 5054483 #### [facility] [address] [place] [address] Platelets (Bld) [#/Vol] 242.0 E9/L Normal 150.0-500.0 [facility] Comment on above: Performed By: #### 2 371743, 31765314, 9297399, 5929492 #### [facility] [address] [place] [address] RBC (Bld) [#/Vol] 3.8 E12/L Low 4.3-5.9 [facility] Comment on above: Performed By: #### 2 276260, 59947183, 3748421, 0886376 #### [facility] [address] [place] [address] WBC corrected for nucl RBC Auto (Bld) [#/Vol] 10.5 E9/L Normal 4.0-11.0 [facility] Comment on above: Performed By: #### 2 364853, 46178324, 8809141, 3826212 #### [facility] [address] [place] [address] Capillary Glucose POCon 04-04 Glucose [Mass/Vol] 84 mg/dL Normal 55-99 [facility] Comment on above: Result Comment: Repe at Test Performed By: #### 2 [id number] #### [facility] [address] [place] [address] Glucose [Mass/Vol] 88 mg/dL Normal 55-99 [facility] Comment on above: Result Comment: Repe at Test Performed By: #### 2 [id number] #### [facility] [address] [place] [address] [place] [address] Coding Summary.on 05-01-2020 Coding Summary. CODING DATE: 05/01/2020 FINAL [facility] STATUS: Home (Routine DC) PAYOR: Medicare [...] [place] CphT Date Saved: 05/01/2020 08:36 am [facility] Coding Summary. CODING DATE: 04/25/2020 FINAL [facility] STATUS: Home (Routine DC) PAYOR: Medicare [...] [place] [facility]ph[facility] Date Saved: 04/25/2020 04:17 pm [facility] Consent for Treatmenton 04-04 Consent for Treatment [id number]#1 .00CD:127 [facility] Consent for Treatment [id number]#1 .00CD:127 Normal [facility] H&P Updateon 05-01-2020 H&P Update [id number]#1 .00CD:127 Normal [facility] Main OR PACU I Recordon 04-04 Main OR PACU I Record PACU Phase I Docum ent Type FT Summary Primary Physician: David Talamantes DO Finalized Date/Time: 05/01/20 18:04:55 Pt. Name: CLAUDIA ESTRELLA/Sex: 1950 Female Med Rec #: [id number] Physician: David Talamantes DO Financial #: [id number] Pt. Type: A Room/Bed: [place] [address] Admit/Disch: 05/01/20 11:43:14 - Institution: Case Times [...] I Outcomes Met? Yes Last Modified By: Jana WU, Ju Laureano 05/01/20 18:04:37 Post-Care Text: The patient demonstrates [...] By: Ju Bates RN 05/01/20 18:04 Normal [facility] Main OR PACU II Recordon Main OR PACU II Record PACU Phase II Document Type FT Summary Primary Physician: David Talamantes DO Finalized Date/Time: 05/01/20 20:09:08 Pt. Name: CLAUDIA ESTRELLA/Sex: 1950 Female Med Rec #: [id number] Physician: David Talamantes DO Financial #: [id number] Pt. Type: O Room/Bed: N306/01 Admit/Disch: 05/01/20 [...] By: Yessy Curran RN 05/01/20 20:09 Normal [facility] Main OR Preoperative Recordo n 05-01-2020 Main OR Preoperative Record PreOp Document Type FT Summary Primary Physician: David Talamantes DO Finalized Date/Time: 05/01/20 14:45:06 Pt. Name: CLAUDIA ESTRELLA/Sex: 1950 Female Med Rec #: [id number] Physician: David Talamantes DO Financial #: [id number] Pt. Type: A Room/Bed: [place] [address] Admit/Disch: 05/01/20 11:43:14 - Institution: Case Times [...] By: Viky Hernández RN 05/01/20 14:45 Normal [facility] Monitor Recordon 05-01-2020 Monitor Record [id number]# 1.00CD:127 Normal [facility] Monitor Record [id number]# 1.00CD:127 Normal [facility] Outside Radiologyon 05-01-20 20 Outside Radiology [id number]#1 .00CD:127 Normal [facility] Outside Recordson 05-01-2020 Outside Records [id number]#1 .00CD:127 Normal [facility] Progress Note-Nurseon 2019 Progress Note-Nurse At 1653--Gisela poct stated she needed a nurse in bay 12 stat. This nurse arrived to room. Patient stated she has CP 10/10 midsternal, heaviness. Jhoana WU at bedside as well. Vitals obtained. Dr. [...] blood clots--Ross WU will discuss with Dr. Amir. Patient is allowed to bear weight as tolerated with crutches. 1755--Patient and daughter with belongings taken up to 306. 180--Outpatient discharge paperwork reviewed with patient and daughter at this time--noted as this could change d/t plan of care on the floor. Paperwork, follow up appointment card, pictures and printed script given to daughter at bedside. 183--Attempted to call Dr. Talamantes--call went to voicemail. 183--This nurse spoke with Dr. Carter (coordinator cardiopulmonary services physician), informed Dr. Carter reason for admission and patient's room number. Dr. Aldridge at bedside at 1705--Physician looked at patient EKG strip that was printed. Normal [facility] Progress Note-Nurse 1528: pt. medicated with [...] dtr. also at bedside and updated. Normal [facility] Troponin 0 Hr.on 05-01-2020 Troponin I.cardiac [Mass/Vol] 4.10 pg/mL Low 10.10-27.10 [facility] Comment on above: Result Comment: The 95% CI (Confidence Interval) PPV (Positive Predictive Value) for myocardial infarction in females is 38 pg/mL, in males 51 pg/mL. The results should be used in conjunction with clinical conditions of myocardial infarction. (Access High Sensitivity Troponin I Instructions For Use, Wilfrido Jose, January 2018) Performed By: #### 2 [id number] #### [facility] [address] [place] [address] eGFRon 05-01-2020 GFR/1.73 sq M.predicted among blacks MDRD (S/P/Bld) [Vol rate/Area] 39 mL/min/1.73 m2 Low >=59 [facility] Comment on above: Order Comment: Order added by Discern Expert. Result Comment: eGFR is race adjusted. AA=. Performed By: #### 2 061562, 08072450, 6726589, 5378104 #### [facility] [address] [place] [address] GFR/1.73 sq M.predicted among non-blacks MDRD (S/P/Bld) [Vol rate/Area] 32 mL/min/1.73 m2 Low >=59 [facility] Comment on above: Order Comment: Order added by Discern Expert. Result Comment: Agriculture Research Director jayden kidney disease could be indicated at eGFR's of less than 60 mL/min/1.73m2. Kidney failure is indicated at less than 15 mL/min/1.73m2. Performed By: #### 2 714618, 06108115, 0027716, 0961907 #### [facility] [address] [place] [address] Coding Summary.on 04-28-2020 Coding Summary. CODING DATE: 04/28/2020 FINAL [facility] STATUS: Home (Routine DC) PAYOR: Medicare ADMIT [...] CphT Date Saved: 04/28/2020 09:19 am Normal [facility] Outpatient Surgery Discharge Instructionon 04-28-2020 Outpatient Surgery Discharge Instruction [place] [id number] Patient Discharge Instructions PERSON INFORMATION Name: SAMEER CLAUDIA Conklin Date of : 1950 Current Date: 04/28/2020 [...] Follow up: With: Address: When: David Talamantes [address] [place] [id number] Business (1) Comments: Keep scheduled appointment Type Location Start [facility] 05/01/2020 2:15 PM 05/01/2020 2:55 PM Confirmed Pharmacy Information: Thank you for choosing [facility] HERE ARE THE MEDICATION CHANGES THAT [...] tab Oral Daily. PATIENT EDUCATION INFORMATION Instructions: [place], [place] [facility] DISCHARGE INSTRUCTIONS: KNEE ARTHROSCOPY [...] result of (more content not included)... Normal [facility] Consent for Procedure/Surger yon 04-27-2020 Consent for Procedure/Surgery [id number]# 1.00CD:127 Normal [facility] Outside Recordson 04-27-2020 Outside Records [id number]# 1.00CD:127 Normal [facility] Priority Order-Trina 2019 Priority Order-STAT Comment Invalid Interpretation Code [facility] Comment on above: Result Comment: Rece ived Performed at: [facility] [address] [employer] [facility] [place] [id number] MD Bladimir Briones Performed By: #### 2 [id number] #### [facility] [address] [place] [address] SARS-CoV-2, NAAon 04-25-2020 SARS-CoV-2 (COVID-19) RNA JAYASHREE+probe Ql (Resp) Not detected Invalid Interpretation Code Not Detected [facility] Comment on above: Result Comment: This nucleic acid amplification test was developed and its performance characteristics determined by [employer]. Nucleic acid amplification tests include PCR and [...] detected) result in this assay. Performed at: [facility] [address] [place] [address] [place] [id number] MD Bladimir Briones Performed By: #### 2 [id number] #### [facility] [address] [place] [address] XR Chest 2 Viewson 0 XR Chest [...] Matias George M.D. Transcribed by: LUDIN Technologist: [place] Normal [facility] BUNon 04-24-2020 Urea nitrogen [Mass/Vol] 36 mg/dL High 5-21 [facility] Comment on above: Performed By: #### 1 4771850, 8961251, 1188463, 4125515, 9451361, 1193914 ####[facility] [address] [place] [address] CBC w/Indiceson 04-24-2020 Erythrocyte distribution width (RBC) [Ratio] 13.0 % Normal 10.9-14.2 [facility] Comment on above: Performed By: #### 1 9901210, 3231893, 9249726, 3420872, 1755483, 3675313 ####[facility] [address] [place] [address] Hematocrit (Bld) [Volume fraction] 34.1 % Normal 34.0-46.0 [facility] Comment on above: Performed By: #### 1 5396677, 5608591, 7312273, 2216771, 3591011, 9445244 ####[facility] [address] [place] [address] Hemoglobin (Bld) [Mass/Vol] 11.6 g/dL Low 12.0-16.0 [facility] Comment on above: Performed By: #### 1 8587614, 1902701, 9727386, 4367547, 1374627, 0645520 ####[facility] [address] [place] [address] MCH (RBC) [Entitic mass] 29.5 pg Normal 27.0-34.0 [facility] Comment on above: Performed By: #### 1 3174160, 5985169, 2835907, 6377672, 1346561, 6175720 ####[facility] [address] [place], [place] [address] MCHC (RBC) [Mass/Vol] 34.1 g/dL Normal 31.4-36.0 [facility] Comment on above: Performed By: #### 1 4421152, 0373189, 3594762, 4578268, 6008510, 0070258 ####[address] [address] MCV (RBC) [Entitic vol] 86.5 fL Normal 80.0-100.0 [facility] Comment on above: Performed By: #### 1 4901548, 8357838, 5989946, 3665523, 1062683, 1101219 ####[place] [address] Platelet mean volume (Bld) [Entitic vol] 9.4 fL Normal 6.4-10.8 [facility] Comment on above: Performed By: #### 1 0415854, 4574924, 0081006, 0557109, 4208216, 0338931 ####[address] [address] Platelets (Bld) [#/Vol] 246.0 E9/L Normal 150.0-500.0 [facility] Comment on above: Performed By: #### 1 3922848, 3519540, 4924356, 3172049, 4413662, 7130853 ####[place] [address] RBC (Bld) [#/Vol] 3.9 E12/L Low 4.3-5.9 [facility] Comment on above: Performed By: #### 1 0636694, 5660395, 5695799, 9280316, 7546343, 9256673 ####[address] [address] WBC corrected for nucl RBC Auto (Bld) [#/Vol] 10.0 E9/L Normal 4.0-11.0 [facility] Comment on above: Performed By: #### 1 7014935, 2417957, 2028630, 1415588, 3349456, 7990312 ####[facility] [address] [place] [address] Consent for Treatmenton 04-03 Consent for Treatment [id number] .00CD:127 Normal [facility] Creatinineon 04-24-2020 Creatinine [Mass/Vol] 1.6 mg/dL High 0.5-1.3 [facility] Comment on above: Performed By: #### 1 6477035, 8620073, 7016313, 8330248, 1789119, 9223211 ####[facility] [address] [place] [address] Glu Fastingon 04-24-2020 Glucose [Mass/Vol] 81 mg/dL Normal 55-99 [facility] Comment on above: Performed By: #### 1 6473061, 2047049, 9935560, 5959237, 8736308, 8580174 ####[facility] [address] [place] [address] Lyteson 04-24-2020 Anion gap [Moles/Vol] 13 mmol/L Normal 6-16 [facility] Comment on above: Performed By: #### 1 5748669, 6538372, 0291123, 8096824, 5748931, 2911171 ####[facility] [address] [place] [address] Chloride [Moles/Vol] 103 mmol/L Normal 101-111 [facility] Comment on above: Performed By: #### 1 3941326, 3033920, 5499287, 5665713, 7091292, 0370776 ####[facility] [address] [place] [address] CO2 [Moles/Vol] 26 mmol/L Normal 21-31 [facility] Comment on above: Performed By: #### 1 1642132, 6055501, 2193831, 6735494, 3332018, 7908828 ####[facility] [address] [place] [address] Potassium [Moles/Vol] 3.9 mmol/L Normal 3.5-5.3 [facility] Comment on above: Performed By: #### 1 5776220, 3769583, 2426207, 4478529, 7368971, 6143584 ####[facility] [address] [place] [address] Sodium [Moles/Vol] 138 mmol/L Normal 135-145 [facility] Comment on above: Performed By: #### 1 6060035, 4957409, 4881419, 6944455, 2918709, 2972289 ####[facility] [address] [place] [address] Physician Orderon 04-24-2020 Physician Order [id number]# 1.00CD:127 Normal [facility] eGFRon 04-24-2020 GFR/1.73 sq M.predicted among blacks MDRD (S/P/Bld) [Vol rate/Area] 39 mL/min/1.73 m2 Low >=59 [facility] Comment on above: Order Comment: Order added by Discern Expert. Result Comment: eGFR is race adjusted. AA=. Performed By: #### 1 4816764, 0183278, 8284454, 3341471, 0446791, 8768440 ####[facility] [address] [place] [address] GFR/1.73 sq M.predicted among non-blacks MDRD (S/P/Bld) [Vol rate/Area] 32 mL/min/1.73 m2 Low >=59 [facility] Comment on above: Order Comment: Order added by Discern Expert. Result Comment: Agriculture Research Director jayden kidney disease could be indicated at eGFR's of less than 60 mL/min/1.73m2. Kidney failure is indicated at less than 15 mL/min/1.73m2. Performed By: #### 1 0299920, 0501925, 6327336, 7954858, 7492938, 7204511 ####[facility] [address] [place] [address] Physician Orderon 04-13-2020 Physician Order [id number]# 1.00CD:127 [facility] Physician Orderon 04-10-2020 Physician Order [id number]# 1.00CD:127 [facility] Vital Signs Date Time Vital Sign Value Performing Clinician Facility 05-30-2023 15:40-0500 Body height 147.32 cm [facility] Other [facility] Other 05-30-2023 15:40-0500 Body mass index (BMI) [Ratio] 26.92 kg/m2 [facility] Other [facility] Other 05-30-2023 15:40-0500 Body temperature 97 [degF] [facility] Other [facility] Other 05-30-2023 15:40-0500 Body weight 58.42 kg [facility] Other [facility] Other 05-30-2023 15:40-0500 Diastolic blood pressure 71 mm[Hg] [facility] Other [facility] Other 05-30-2023 15:40-0500 Respiratory rate 18 /min [facility] Other [facility] Other 05-30-2023 15:40-0500 SaO2% (BldA) [Mass fraction] 97 % [facility] Other [facility] Other 05-30-2023 15:40-0500 Systolic blood pressure 153 mm[Hg] [facility] Other [facility] Other 01-30-2023 15:40-0400 Body height 147.32 cm [facility] Other [facility] Other 01-30-2023 15:40-0400 Body mass index (BMI) [Ratio] 26.83 kg/m2 [facility] Other [facility] Other 01-30-2023 15:40-0400 Body temperature 97.7 [degF] [facility] Other [facility] Other 01-30-2023 15:40-0400 Body weight 58.24 kg [facility] Other [facility] Other 01-30-2023 15:40-0400 Diastolic blood pressure 67 mm[Hg] [facility] Other [facility] Other 01-30-2023 15:40-0400 Respiratory rate 18 /min [facility] Other [facility] Other 01-30-2023 15:40-0400 SaO2% (BldA) [Mass fraction] 98 % [facility] Other [facility] Other 01-30-2023 15:40-0400 Systolic blood pressure 136 mm[Hg] [facility] Other [facility] Other 08-30-2022 14:40-0500 Body height 147.32 cm [facility] Other [facility] Other 08-30-2022 14:40-0500 Body mass index (BMI) [Ratio] 26.29 kg/m2 [facility] Other [facility] Other 08-30-2022 14:40-0500 Body temperature 98.6 [degF] [facility] Other [facility] Other 08-30-2022 14:40-0500 Body weight 57.06 kg [facility] Other [facility] Other 08-30-2022 14:40-0500 Diastolic blood pressure 72 mm[Hg] [facility] Other [facility] Other 08-30-2022 14:40-0500 Respiratory rate 18 /min [facility] Other [facility] Other 08-30-2022 14:40-0500 SaO2% (BldA) [Mass fraction] 96 % [facility] Other [facility] Other 08-30-2022 14:40-0500 Systolic blood pressure 139 mm[Hg] [facility] Other [facility] Other 05-30-2022 11:40-0500 Body height 147.32 cm [facility] Other [facility] Other 05-30-2022 11:40-0500 Body mass index (BMI) [Ratio] 27.25 kg/m2 [facility] Other [facility] Other 05-30-2022 11:40-0500 Body temperature 96.2 [degF] [facility] Other [facility] Other 05-30-2022 11:40-0500 Body weight 59.15 kg [facility] Other [facility] Other 05-30-2022 11:40-0500 Diastolic blood pressure 71 mm[Hg] [facility] Other [facility] Other 05-30-2022 11:40-0500 SaO2% (BldA) [Mass fraction] 97 % [facility] Other [facility] Other 05-30-2022 11:40-0500 Systolic blood pressure 151 mm[Hg] [facility] Other [facility] Other 01-27-2022 12:20-0400 Body height 147.32 cm [facility] Other [facility] Other 01-27-2022 12:20-0400 Body mass index (BMI) [Ratio] 26.83 kg/m2 [facility] Other [facility] Other 01-27-2022 12:20-0400 Body temperature 98 [degF] [facility] Other [facility] Other 01-27-2022 12:20-0400 Body weight 58.24 kg [facility] Other [facility] Other 01-27-2022 12:20-0400 Diastolic blood pressure 69 mm[Hg] [facility] Other [facility] Other 01-27-2022 12:20-0400 Respiratory rate 18 /min [facility] Other [facility] Other 01-27-2022 12:20-0400 SaO2% (BldA) [Mass fraction] 96 % [facility] Other [facility] Other 01-27-2022 12:20-0400 Systolic blood pressure 136 mm[Hg] [facility] Other [facility] Other 09-20-2021 16:00-0400 Body height 147.32 cm [facility] Other [facility] Other 09-20-2021 16:00-0400 Body mass index (BMI) [Ratio] 27.42 kg/m2 [facility] Other [facility] Other 09-20-2021 16:00-0400 Body temperature 97.6 [degF] [facility] Other [facility] Other 09-20-2021 16:00-0400 Body weight 59.51 kg [facility] Other [facility] Other 09-20-2021 16:00-0400 Diastolic blood pressure 76 mm[Hg] [facility] Other [facility] Other 09-20-2021 16:00-0400 Respiratory rate 18 /min [facility] Other [facility] Other 09-20-2021 16:00-0400 SaO2% (BldA) [Mass fraction] 97 % [facility] Other [facility] Other 09-20-2021 16:00-0400 Systolic blood pressure 169 mm[Hg] [facility] Other [facility] Other 05-18-2021 15:40-0500 Body height 147.32 cm [facility] Other [facility] Other 05-18-2021 15:40-0500 Body mass index (BMI) [Ratio] 26.5 kg/m2 [facility] Other [facility] Other 05-18-2021 15:40-0500 Body temperature 97.2 [degF] [facility] Other [facility] Other 05-18-2021 15:40-0500 Body weight 57.52 kg [facility] Other [facility] Other 05-18-2021 15:40-0500 Diastolic blood pressure 79 mm[Hg] [facility] Other [facility] Other 05-18-2021 15:40-0500 Respiratory rate 18 /min [facility] Other [facility] Other 05-18-2021 15:40-0500 SaO2% (BldA) [Mass fraction] 97 % [facility] Other [facility] Other 05-18-2021 15:40-0500 Systolic blood pressure 137 mm[Hg] [facility] Other [facility] Other Encounters Encounter Date Encounter Type Care Provider Facility Start: 09-04-2023 End: 09-04-2023 ambulatory [facility] Start: 08-08-2023 End: 08-08-2023 ambulatory [facility] Other [facility] Other Start: 08-08-2023 Telephone encounter [facility] Start: 08-04-2023 End: 08-04-2023 ambulatory [facility] Start: 07-11-2023 End: 07-11-2023 ambulatory [facility] Other [facility] Other Start: 07-11-2023 Telephone encounter [facility] Start: 05-30-2023 End: 05-30-2023 ambulatory [facility] Other [facility] Other Start: 05-30-2023 Office outpatient visit 25 minutes [facility] Mary Grace [facility] Start: 05-23-2023 End: 05-23-2023 ambulatory [facility] Other [facility] Other Start: 05-23-2023 Telephone encounter [facility] Start: 02-24-2023 End: 02-24-2023 ambulatory [facility] Start: 01-30-2023 End: 01-30-2023 ambulatory [facility] Other [facility] Other Start: 01-30-2023 Encounter by jose r link [facility] Start: 01-30-2023 Office outpatient visit 25 minutes [facility] Start: 10-27-2022 End: 10-27-2022 ambulatory [facility] Other [facility] Other Start: 10-27-2022 Telephone encounter [facility] Start: 10-26-2022 End: 10-27-[address] JOHN PERDOMO Facility: Start: 09-12-2022 End: 09-12-2022 ambulatory KARTHIK FISH [facility] Start: 08-30-2022 End: 08-30-2022 ambulatory [facility] Other [facility] Other Start: 08-30-2022 Office outpatient visit 25 [...] End: 05-30-2022 ambulatory [facility] Other [facility] Other Start: 05-30-2022 Office outpatient visit 25 minutes [facility] Start: 05-27-2022 End: 05-28-[address] JOHN PERDOMO Facility:[facility] Start: 05-23-2022 Telephone encounter [facility] Start: 05-23-2022 End: 05-24-[address] JOHN PERDOMO [place] [employer] Other Start: 05-14-2022 End: 05-15-2022 ambulatory CARMINA ROSALES Facility:[facility] Start: 05-12-2022 End: 05-12-2022 ambulatory Geneva Mary Grace Other [facility] [facility] Other Start: 05-12-2022 Telephone encounter Geneva Mary Grace [facility] Start: 05-11-2022 End: 05-12-2022 ambulatory CARMINA ROSALES Facility:[facility] Start: 03-17-2022 End: 03-18-[address] JOHN PERDOMO Facility:[facility] Start: 01-27-2022 End: 01-27-2022 ambulatory Geneva Mary Grace Other [facility] Other Start: 01-27-2022 Office outpatient visit 25 minutes Geneva Mary Grace [facility] Start: 01-21-2022 End: 01-22-[address] JOHN PERDOMO Facility:[facility] Start: 01-17-2022 End: 01-18-[address] JOHN PERDOMO Facility:[facility] Start: 01-13-2022 End: 01-13-2022 ambulatory Genvea Mary Grace Other [facility] Other Start: 01-13-2022 Telephone encounter Geneva Mary Grace [facility] Start: 12-16-2021 Telephone encounter Geneva Mary Grace [facility] Start: 12-16-2021 End: 12-17-[address] JOHN PERDOMO [facility] [employer] Other Start: 12-09-2021 End: 12-10-2021 ambulatory JOHN PERDOMO Facility:[facility] Start: 12-08-2021 End: 12-08-2021 ambulatory Geneva Mary Grace Other [facility] [facility] Other Start: 12-08-2021 Telephone encounter Geneva Mary Grace [facility] Start: 12-07-2021 End: 12-07-[address] JOHN PERDOMO Facility:[facility] Start: 12-06-2021 End: 12-07-[address] JOHN PERDOMO Facility:[facility] Start: 12-01-2021 End: 12-02-[address] JOHN PERDOMO Facility:[facility] Start: 11-19-2021 End: 11-20-[address] JOHN PERDOMO Facility: Start: 11-01-2021 End: 11-01-2021 ambulatory [place] Mary Grace Other [facility] [facility] Other Start: 11-01-2021 Encounter by [employer] r link Geneva Mary Grace [facility] Start: 10-28-2021 End: 10-28-2021 ambulatory [place] Mary Grace Other [facility] [facility] Other Start: 10-28-2021 Telephone encounter [place] Mary Grace [facility] Start: 10-13-2021 End: 10-13-2021 ambulatory [place] Mary Grace Other [facility] [facility] Other Start: 10-13-2021 Encounter by [employer] link Geneva Mary Grace [facility] Start: 10-06-2021 End: 10-06-2021 ambulatory Geneva Mary Grace Other [facility] [facility] Other Start: 10-06-2021 Telephone encounter [place] Mary Grace [facility] Start: 09-21-2021 End: 09-21-2021 ambulatory [place] Mary Grace Other [facility] Other Start: 09-21-2021 Telephone encounter Gneeva Mary Grace [facility] Start: 09-20-2021 End: 09-20-2021 ambulatory [place] Mary Grace Other [facility] Other Start: 09-20-2021 Office outpatient visit 25 minutes Geneva Mary Grace [facility] Start: 08-01-2021 End: 08-01-2021 ambulatory Geneva Mary Grace Other [facility] Other Start: 08-01-2021 Encounter by [employer] link [place] Mary Grace [facility] Start: 07-18-2021 End: 07-18-2021 ambulatory [place] Mary Grace Other [facility] Other Start: 07-18-2021 Encounter by jose demetra parrish [place] Mary Grace [facility] Start: 05-18-2021 End: 05-18-2021 ambulatory [place] Mary Grace Other [facility] Other Start: 05-18-2021 Office outpatient visit 25 minutes Geneva Jenkins [facility] Immunizations Immunization Date Immunization Notes Care Provider Fa cility NEGATED: Highlighted row has not occurred!06-05-2019 influenza, high dose seasonal, preservative-free Patient Objection Geneva Mary Grace Other [facility] Other Payers Date Payer Category Payer Medicare [id number] 1958 Unknown [id number] 1950 Unknown [id number] 2.16.8 40.1.877467.3.579.2.647 1950 Unknown [id number] 2.16.84 0.1.330095.3.579.2.593 1950 Unknown [id number] 2.16.84 0.1.330284.3.579.2.593 1951 Unknown [id number] 2.16.84 0.1.271599.3.579.2.593 1951 Unknown [id number] 2.16.84 0.1.186588.3.579.2.593 1951 Unknown [id number] 2.16.84 0.1.491268.3.579.2.593 1951 Unknown [id number] 2.16.84 0.1.896035.3.579.2.593 1951 Unknown [id number] 2.16.84 0.1.074143.3.579.2.593 1951 Unknown [id number] 2.16.84 0.1.547059.3.579.2.593 1951 Unknown [id number] 2.16.84 0.1.596060.3.579.2.593 1951 Unknown [id number] 2.16.84 0.1.393585.3.579.2.593 1951 Unknown [id number] 2.16.84 0.1.124925.3.579.2.593 1951 Unknown [id number] 2.16.84 0.1.916958.3.579.2.593 1951 Unknown [id number] 2.16.84 0.1.574734.3.579.2.593 1951 Unknown [id number] 2.16.84 0.1.424491.3.579.2.593 1951 Unknown [id number] 2.16.84 0.1.210183.3.579.2.593 1951 Unknown [id number] 2.16.84 0.1.419828.3.579.2.593 1951 Unknown [id number] 2.16.84 0.1.987387.3.579.2.593 1951 Unknown [id number] 2.16.84 0.1.553424.3.579.2.593 1951 Unknown [id number] 2.16.84 0.1.743811.3.579.2.593 1950 Unknown [id number] 2.16.84 0.1.382563.3.579.2.593 Social History Date Type Detail Facility Unknown if ever smoked [facility] Other Sex Assigned At Sex Assigned At Bir th [facility] Other Clinical Notes 04-27-2020 to 09-04-2023 Note Date & Type Note Facility 09-04-2023 Note [facility] Subjective Claudia Estrella is a 73 y.o. year old female patient being seen for follow up [facility] for CHF. She has not seen nephrology since discharge but does have an upcoming apt. Still getting orthostatic when she stands up, but denies lightheadedness/syncope. Chest pain has resolved. Patient Active Problem List Diagnosis Coronary arteriosclerosis Heart murmur Hypertensive disorder Kidney disease Recurrent herpes simplex Stage 4 chronic kidney disease (CMS/HCC) Type 2 diabetes mellitus (CMS/HCC) Chronic diastolic heart failure (CMS/HCC) Benign essential hypertension Glaucoma Goiter Orthostatic hypotension Corneal scar, right eye Dry eyes 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 (CMS/HCC) Primary open angle glaucoma (POAG) of both eyes, mild stage Family History Problem Relation Name Age of [...] 20 mmHg. She is symptomatic with that. After last visit with me on 08/04/2023 and due to orthostatic hypotension and no evidence of leg edema I reduced her Bumex but she ended up having significant volume overload and was admitted to the hospital for diuresis. She did well with intravenous diuretic therapy. Her diuretic therapy was adjusted. Today she reports that she has been doing well. She still has no significant lower extremity edema. She has mild shortness of breath on exertion, NYHA class II. No palpitations. No significant chest pain. Review of Systems Eyes: Positive for visual disturbance. Cardiovascular: Positive for dyspnea on exertion. Gastrointestinal: Positive for bloating. Neurological: Positive for light-headedness. All other systems reviewed and are negative. Objective Visit Vitals BP 136/60 (BP Location: Left arm, Patient Position: Standing) Pulse 70 Ht 1.422 m (4' 8 ) Wt 57.2 kg (126 lb) SpO2 97% BMI 28.25 kg/m??? Smoking Status Never BSA 1.5 m??? Physical Exam Constitutional: Appearance: She is [...] Erythromycin Other Erythromycin Base Hydromorphone Penicillins Hives Spironolactone Rash Medications Current Outpatient Medications: allopurinol (Zyloprim) 100 [...] MOUTH EVERYDAY AT BEDTIME, Disp: 90 tablet, Rfl (more content not included)... [facility] 08-04-2023 Note [facility] Subjective Claudia Estrella is a [...] Rfl: 3 ergocalciferol (Vitamin D-2) 1.25 MG (41088 UT) capsule, Take 1 capsule by mouth 1 (one) time per week., Disp: , Rfl: ferrous sulfate 325 (65 Fe) M (more content not included)... [facility] 07-11-2023 Note Reviewed pt's b/p si tting [...] to evaluate symptoms and response. Carmina Rosales SENIOR TAX ACCOUNTANT Division of Cardiology, [facility]- [phone] Pager- [phone] Email- [email or web address] 05-30-2023 Evaluation note Encounter Date [...] has adequate Iron stores. Continue oral iron. [facility] Other [id number] NoteNYHC II Currently euvolemic without exacerbation Continue GDMT- Diuretic therapy- As per nephrology recommendations she takes Bumex 3 mg twice daily and metolazone 2.5 mg as needed Monitor daily weights, I&O, fluid restriction 1.5-2L/day, renal function and [facility]tesUn[facility]23 NoteHypertension is Well-controlled blood pressure 131/71 Continue all medications Follow-up with nephrology as scheduledUnMcKit[facility] 02-24-2023 NoteCoronary artery disease is stable Continue GDMT- Continue aspirin, Lipitor and metoprolol continue risk factor modifications- heart healthy diet, regular exercise as tolerated and continue all medications.[facility] 02-24-2023 NoteUTP CARDIOLOGY PROGRESS NOTE HPI: Claudia [...] tablet 3 ergocalciferol (Vitamin D-2) 1.25 MG (81084 UT) capsule Take 1 capsule by mouth [...] moderately elevated right-sided pressures, (more content not included)...[facility]08-25-2023 NotePatient here for 6 mo follow up CAD, chronic diastolic heart failure, hypertension, and CKD. Had labs about 1 month ago. Still gets the chest pain, but says it's better. Gets winded when walking long distances. Doing great. Review of Systems Cardiovascular: Positive for chest pain (continues to improve) and dyspnea on exertion. All other systems reviewed and are negative.[facility] 01-30-2023 Evaluation note* Encounter Date Diagnosis Assessment [...] has adequate Iron stores. Continue oral iron. [facility] Other 03-13-2023 [facility] Subjective Claudia Estrella is a [...] is alert and orien (more content not included)...[facility]02-28-2023 Evaluation note* Encounter Date Diagnosis Assessment Notes [...] past. Will defer this to the PCP. [facility] Other 11-28-2022 Evaluation note* Encounter Date Diagnosis [...] an adequate Iron stores. Continue oral iron. [facility] Other 11-21-2022 Evaluation note* Encounter Date Diagnosis Assessment Notes Treatment Notes Treatment Clinical Notes May, CKD (chronic kidney disease) stage 4, GFR 15-29 ml/min (ICD-10 - N18.4) [facility] Other 07-28-2022 Evaluation note* Encounter Date Diagnosis [...] an adequate Iron stores. Continue oral iron. [facility] Other 03-22-2022 Evaluation note* Encounter Date Diagnosis Assessment Notes Treatment Notes Treatment Clinical Notes Aug, Hypokalemia (ICD-10 - E87.6) [facility] Other 03-21-2022 Evaluation note* Encounter Date Diagnosis [...] an adequate Iron stores. Continue oral iron. [facility] Other 01-16-2022 Evaluation note* Encounter Date Diagnosis Assessment Notes Treatment Notes Treatment Clinical Notes Jul, Hyperuricemia (ICD-1 0 - E79.0) [facility] Other 11-16-2021 Evaluation note* Encounter Date Diagnosis [...] an adequate Iron stores. Continue oral iron. [facility] Other 11-02-2020 NoteRounds at this time with Dr Mariul Yeboah. Daughter bedside. Patient is alert & involved [...] MURPHY Amor notified Taylor Fisher & Maryan Lopez.[facility] HospitalComment on above:Result Comment: Electronically Signed By: Kip WU, Zuleyma Mcdonough\.br\Date and Time Signed: 05/04/20 13:53 [id number] NoteBasic Information Cardiology Progress Subjective Cardiology consulted over weekend for chest discomfort post operatively. Her EKG was non-acute and troponin trended negative. She does have a emergency medicine specialist and reportedly had stress testing in August [...] mg/dL High (05/04/20 12:12:00) POC Device SN: [id number] (05/04/20 12:12:00) POC Username: NESHA COTA (05/04/20 [...] prefers all testing to be performed at [facility]. Faxed notes to her primary emergency medicine specialist's office, Dr Fish. Attempted to schedule stress testing with [facility]. Ordered: EC Stress Echo Complete w/ Contrast 2. Hypertension (I10: Essential (primary) hypertension) Continue current medications and follow up with primary emergency medicine specialist on discharge. 3. Diabetes (E11.9: Type 2 [...] discuss this management further with her primary emergency medicine specialist, but agreeable to starting statin for now. Patient is offered in-patient stress echocardiogram but declines as she wants to be discharged. She is offered out patient stress testing at [facility] tomorrow am and she prefers to have this done at [facility]. Per Central Scheduling at [facility], Dobutamine Stress Echo's are not performed at the facility. She will have close FU with Dr Fish to move forward with testing. D/W Dr Guzmán. Faxed info from [facility] Hospital stay to her primary emergency medicine specialist. Attestation Discussed patient findings and plan of [...] tab(s), Oral, Bedtime saturnino (more content not included)...[facility] HospitalComment on above: Result Comment: Electronically Signed By: Trudy SUAZO CNP\.br\Date and Time Signed: 05/04/20 13:15 EST\.br\Electronically Co-Signed By: Darrell VIGIL, Jay Jay Posadas.rashmi\Date and Time Co-Signed: 05/04/20 13:19 [id number] NoteIV removed. nurse artillery or naval gunfire observer emptied. patient and patients daughter verbalized understanding of discharge teaching. patient refused flu vaccination. patient did not verbalize any questions or concerns atthis time.[facility] Note Admission Information Admitting Physician - [...] another day versus following up with her emergency medicine specialist and she has opted to do the latter. This is reasonable as she is chest pain-free at rest as well as on exertion. Patient is already on lisinopril, metoprolol, aspirin. Lipitor 20 mg was added for further risk reduction. She will follow-up with her primary emergency medicine specialist Dr. Fish. Regarding her recent Ortho surgery she will do weightbearing activity as tolerated and use crutchesfor assistance with ambulation. Dr. Kushal Guzmán Hospitalist This report was transcribed using voice recognition software. Every effort was made to ensure accuracy, however, inadvertently computerized medical records auditor mistakes may be present. Significant Findings POWERSCRIBE [...] pain) Ordered: Hospital Discharge Day 30 Min/Less 93958 2. Hypertension (I10: Essential (primary) hypertension) Ordered: Hospital Discharge Day 30 Min/Less 42593 3. Diabetes (E11.9: Type 2 diabetes mellitus without complications) Ordered: atorvastatin, 20 mg = 1 tab(s), Oral, Bedtime, # 30 tab(s), Refills(s) 1, Pharmacy: [facility]/pharmacy #[id number], 141.5, cm, 04/24/20 13:16:00 EDT, Height/Length Dosing, 69, kg, 05/02/20 5:50:00 EDT, Weight Dosing Hospital Discharge Day 30 Min/Less 39232 4. Acute medial meniscus tear of left knee (S83.242A: Other tear of medial meniscus, current injury, left knee, initial encounter) Ordered: Hospital Discharge Day 30 Min/Less 88466 5. Localized osteoarthritis of left knee (M17.12: Unilateral primary osteoarthritis, left knee) Ordered: Hospital Discharge Day 30 Min/Less 02094 6. No contraindication to deep vein thrombosis (DVT) prophylaxis (Z78.9: Other specified health status) Ordered: Hospital Discharge Day 30 Min/Less 56621 Bruit (R09.89: Other specified symptoms and signs [...] With When Contact Information Follow up with [employer] Within 1 week Additional Instructions: JOHN PERDOMO [facility] [place], [place] [address] (1) Additional Instructions: David Talamantes [address] [place] [id number] (1) Additional Instructions: Keep scheduled (more content not included)...[facility] HospitalComment on above:Result Comment: Electronically Signed By: Kushal GUZMÁN MD\.br\Date and Time Signed: 05/04/20 12:[id number] [address]Dr[address] Manjular rounded with patient earlier. CRM stopped into [...] time. Anticipated discharge 05/04/2020 home. CRM to follow.[facility] HospitalCommymichigan medical center on above:Result Comment: Electronically Signed By: Ab WU, Terri Ramirez\.br\Date and Time Signed: 05/02/20 10:06 [id number] NoteReason for Consultation Chest pain postoperatively History of Present Illness Mrs. Estrella is a very pleasant 70-year-old diabetic female with hypertension, unknown cholesterol, previously seen by emergency medicine specialist Dr. Fish in September 2019 for what [...] testing apparently took place in a private emergency medicine specialist office, so I am unsure whether we [...] test in September 2019 at a private emergency medicine specialist 's office, reportedly LV dysfunction per thepatient, [...] she undergo a dobutami (more content not included)...[facility] HospitalComment on above:Result Comment: Electronically Signed By: Eleuterio VIGIL, John Marin.rashmi\Date and Time Signed: 05/02/20 08:35 [id number] NoteBasic Information Accompanied by: Family member Source of History: Self Present at Bedside: Family member Referral Source: Recovery room History Limitation: None Chief Complaint chest pain History of Present Illness Pt is a 70 F PMH HTN, HLD admitted from PACU. pt had a repair of a left medial meniscus tear with [facility] Pt was in PACU recovering, had a [...] 84 mg/dL (05/01/20 16:07:00) POC Device SN: [id number] (05/01/20 16:07:00) POC Username: ALEXIA HALL (05/01/20 16:07:00) Diagnostic Results EKG NSR [address]-T wave changes Images No qualifying data available. Assessment/Plan 1. Other chest pain (R07.89: Other chest pain) - possible ACS, risk factors include DM, HTN, obesity - telemetry, troponin - ASA, fasting lipid profile - consult [facility] cardiology 2. Hypertension (I10: Essential (primary) hypertension) [...] acetaminophen 325 mg Tab (more content not included)...[facility] HospitalComment on above:Result Comment: Electronically Signed By: JUN VIGIL, Nhung\.br\Date and Time Signed: 05/01/20 18:30 [id number] Note [id number]:127[facility] Evaluation noteNo [place] Other History general Narrative - Reported* Type [...] eye surgery 04/2021 Hospitalization History see above [facility] Other history general Narrative - Reported* Type [...] RIGHT EYE 2021 Hospitalization History see above [facility] Other Nemediaswqx general Narrative - Reported* Type Description Date [...] HEART CATH 12/2021 Hospitalization History see above [facility] Other Summary Purpose Family History No Family History Records FoundNo Family History Records FoundNo Family History Records FoundNo Family History Records FoundNo Family History Records Found Advance Directives No Advanced Directives Records FoundNo Advanced Directives Records FoundNo Advanced Directives Records FoundNo Advanced Directives Records FoundNo Advanced Directives Records Found Additional Source Comments INFORMATION SOURCE (unrecogn ized section and content) DATE CREATED AUTHOR 03/07/2021 Jabier Maldonado [facility] DATE CREATED AUTHOR AUTHOR'S ORGANIZ ATION 08/05/2021 [facility] DATE CREATED AUTHOR AUTHOR'S ORGANIZ ATION 12/16/2021 [facility] DATE CREATED AUTHOR AUTHOR'S ORGANIZ ATION 10/29/[address] [facility] DATE CREATED AUTHOR AUTHOR'S ORGANIZ ATION 09/04/2023 [facility] REASON FOR VISIT (unrecogniz ed section and content) CKDNew Refill RequestCOVIDCH G PHARMACYCKDDisregard previousClinicalFluid restrictionNo InformationClinicalNo InformationWEIGHTCKD and HTNMED CLARIFICATIONCRITICAL LABCKD and HTNCKD and HTNNo InformationCKD and HTNQuestion from appointmentNo InformationCKD and HTNFYI / MEDSClinical FOR RECORDS PERTAINING TO PATIENTS WHO ARE [...] BE BASED ON THE PRIMARY CLINICAL RECORDS. [employer] [facility]. provides no warranty or guarantee of the accuracy or completeness of information in this document.
[2023-09-19 10:12] LABS: Bilirubin Urine NEGATIVE (NEGATIVE); Blood Urine NEGATIVE (NEGATIVE); Clarity Urine CLEAR (CLEAR); Color Urine LT. YELLOW (YELLOW); Glucose Urine UA NEGATIVE (NEGATIVE); Ketones Urine NEGATIVE (NEGATIVE); Leukocyte Esterase Urine MODERATE (NEGATIVE); Nitrite Urine NEGATIVE (NEGATIVE); Protein Urine 30 mg/dL (NEG/TRACE); Urobilinogen Urine 0.2 EU/dL (0.2-1.0); pH Urine 5.5 (5.0-9.0)
[2023-09-19 10:22] LABS: Creatinine Urine Random 54.88 mg/dL (20.00-300.00); Total Protein Urine Random 43.8 mg/dL (<=11.9)
[2023-09-19 10:26] LABS: Percent Iron Saturation 18.2 %
[2023-09-19 10:29] LABS: Bacteria Urine MODERATE #/HPF (NONE SEEN); Mucus Urine NONE SEEN (NONE SEEN); RBC Urine NONE SEEN #/HPF (0-2); Squamous Epithelial Cell Urine MODERATE #/LPF (NONE/RARE)
[2023-09-19 10:32] LABS: Hematocrit 31.9 % (36.0-48.0); Hemoglobin 10.6 g/dL (12.0-16.0); Mean Corpuscular HGB Conc 33.2 g/dL (29.9-35.2); Mean Corpuscular Volume 87.2 fL (81.0-99.0); Mean Platelet Volume 11.2 fL (9.5-13.5); Platelet Count 210 10^3/uL (150-450); Red Blood Count 3.66 10^6/uL (4.20-5.40); Red Cell Distribution Width 13.7 % (11.0-15.0)
[2023-09-19 11:03] LABS: Anion Gap 15.3; BUN Creatinine Ratio 25.3; Calcium 9.1 mg/dL (8.5-10.1); Carbon Dioxide 27.3 mmol/L (21.0-32.0); Chloride 100 mmol/L (98-107); Estimated GFR (African America 26 (>=60); Estimated GFR (Non-African Ame 21 (>=60); Glucose 118 mg/dL (74-106); Magnesium 2.2 mg/dL (1.8-2.4); Phosphorus 4.5 mg/dL (2.6-4.7); Potassium 3.6 mmol/L (3.5-5.1); Sodium 139 mmol/L (136-145); Thyroid Stimulating Hormone 5.483 uIU/mL (0.358-3.740)
[2023-09-20 12:09] LABS: PTH, Intact 80 pg/mL (15-65)
== END 2023-09-19 09:11 | disposition home or self-care (01) ==
LOC: LAB 09:11
PROVIDERS: PCP Family Medicine; Visit Provider Internal Medicine
DX: N18.4 Chronic kidney disease, stage 4 (severe) (principal); I12.9 Hypertensive chronic kidney disease with stage 1 through stage 4 chronic kidney disease, or unspecified chronic kidney disease; E11.22 Type 2 diabetes mellitus with diabetic chronic kidney disease; N25.81 Secondary hyperparathyroidism of renal origin; E79.0 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 inflammatory arthritis and tophaceous disease; R31.29 Other microscopic hematuria; E87.6 Hypokalemia; E61.1 Iron deficiency
CPT/HCPCS: 36415; 80069; 81001; 82306; 82570; 82728; 83540; 83550; 83735; 83970; 84156; 84443; 85027

== ENCOUNTER 2024-01-01 10:05 | Outpatient (OUT) | payer MEDICARE, OTHER, SELFPAY ==
--- OUTSIDE RECORDS SUMMARY | 2024-01-01 10:28 | XMS_ITS ---
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 Name Role Phone JOHN PERDOMO Referring Unavailable [...] MOUKARBEL, DR ANGELES Admitting Unavailable MOUKARBEL, DR AGNELES Attending Unavailable MOUKARBEL, DR ANGELES Consulting Unavailable [...] Admitting Unavailable MOUKARBEL, DR ANGELES Attending Unavailable PREDOMO, DR JOHN Mcdonough Primary Care Unavailable PERDOMO, DR JOHN Mcdonough Primary Care Unavailable BOBBY, CARMINA Consulting Unavailable BOBBY, CARMINA Admitting Unavailable BOBBY, CARMINA Attending Unavailable PERDOMO, DR JOHN Mcdonough Primary Care Unavailable MARY GRACE, GENEVA Admitting Unavailable MARY GRACE, GENEVA Attending Unavailable MARY GRACE, GENEVA Consulting Unavailable BOBBY, CARMINA Attending Unavailable MOUKARBEL, KARTHIK Attending Unavailable MOUKARBEL, KARTHIK Attending Unavailable MOUKARBEL, KARTHIK Attending Unavailable TIMMIS, SHEYLA Zuluaga Attending Unavailable PERDOMO, JOHN Mcdonough Referring Unavailable ZAHLERMIRTA Attending Unavailable Allergies Allergy Classification Reported Allergen(s) Allergy Type Date of Onset Reaction(s) Facility (2 sources) Erythromycin; Translations: [ERYTHROMYCIN] Drug Allergy 1 [facility] Repository (2 sources) HYDROmorphone Drug Allergy 1 [facility] Repository (2 sources) Penicillins; Translations: [PENICILLINS] Drug allergy (disorder) 1 [facility] Repository (20 sources) Erythromycin Drug Allergy anaphylaxis [facility] Other (20 sources) HYDROmorphone; Translations: [HYDROMORPHONE] Drug Allergy 2 Unknown [facility] Repository (20 sources) Penicillin Drug Allergy Unknown [facility] [employer] Other (20 sources) Penicillin G Benzathine Drug allergy 3 [facility] (3 sources) Erythromycin; Translations: [ERYTHROMYCIN BASE] Drug Allergy 0 anaphylaxis [facility] Repository (1 source) Penicillin Drug Allergy [facility] Repository (5 sources) Spironolactone; Translations: [SPIRONOLACTONE] Drug Allergy 3 rash [facility] Repository Encounters Encounter Date Encounter Type Care Provider Facility Start: 11-07-2023 End: 11-07-2023 ambulatory MIRTA TERAN Not Available Start: 09-27-2023 End: 09-27-2023 ambulatory SHEYLA LOVE Not Available Start: 09-25-2023 End: 09-25-2023 ambulatory [facility] Work Phone: Start: 09-25-2023 End: 09-25-2023 Patient encounter procedure [facility] Work Phone: Start: 09-04-2023 End: 09-04-2023 ambulatory KARTHIK GERMAINDERICK [facility] Start: 08-08-2023 End: 08-08-2023 ambulatory Geneva Jenkins Other [facility] Other Start: 08-08-2023 Telephone encounter Geneva Jenkins [facility] Start: 08-04-2023 End: 08-04-2023 ambulatory [facility] Start: 07-11-2023 End: 07-11-2023 ambulatory Geneva Mary Grace Other [facility] Other Start: 07-11-2023 Telephone encounter Geneva Mary Grace [facility] Start: 05-30-2023 End: 05-30-2023 ambulatory Geneva Mary Grace Other [facility] Other Start: 05-30-2023 Office outpatient visit 25 minutes Geneva Mary Grace [facility] Start: 05-23-2023 End: 05-23-2023 ambulatory Geneva Mary Grace Other [facility] Other Start: 05-23-2023 Telephone encounter Geneva Mary Grace [facility] Start: 02-24-2023 End: 02-24-2023 [facility] Start: 01-30-2023 End: 01-30-2023 ambulatory Geneva Mary Grace Other [facility] Other Start: 01-30-2023 Encounter by jose parrish Geneva Mary Grace [facility] Start: 01-30-2023 Office outpatient visit 25 minutes Geneva Mary Grace [facility] Start: 10-27-2022 End: 10-27-2022 ambulatory Geneva Mary Grace Other [facility] Other Start: 10-27-2022 Telephone encounter Geneva Mary Grace [facility] Start: 10-26-2022 End: 10-27-[address] JOHN PERDOMO Facility:[facility] Start: 09-12-2022 End: 09-12-2022 ambulatory [facility] Start: 08-30-2022 End: 08-30-2022 ambulatory Geneva Mary Grace Other [facility] Other Start: 08-30-2022 Office outpatient visit 25 [...] End: 05-30-2022 ambulatory Geneva Mary Grace Other [facility] Other Start: 05-30-2022 Office outpatient visit 25 minutes Geneva Mary Grace [facility] Start: 05-27-2022 End: 05-28-[address] JOHN PERDOMO Facility:[facility] Start: 05-23-2022 Telephone encounter Geneva Mary Grace [facility] Start: 05-23-2022 End: 05-24-[address] JOHN PERDOMO [facility] Other Start: 05-14-2022 End: 05-15-2022 ambulatory CARMINA ROSALES Facility:[facility] Start: 05-12-2022 End: 05-12-2022 ambulatory Geneva Mary Grace Other [facility] Other Start: 05-12-2022 Telephone encounter Geneva Mary Grace [facility] Start: 05-11-2022 End: 05-12-2022 ambulatory CARMINA ROSALES Facility:[facility] Start: 03-17-2022 End: 03-18-[address] JOHN PERDOMO Facility:[facility] Start: 01-27-2022 End: 01-27-2022 ambulatory Geneva Mary Grace Other [facility] Other Start: 01-27-2022 Office outpatient visit 25 minutes Geneva Mary Grace [facility] Start: 01-21-2022 End: 01-22-[address] JOHN PERDOMO Facility:[facility] Start: 01-17-2022 End: 01-18-[address] JOHN PERDOMO Facility:[facility] Start: 01-13-2022 End: 01-13-2022 ambulatory Geneva Mary Grace Other [facility] Other Start: 01-13-2022 Telephone encounter Geneva Mary Grace [facility] Start: 12-16-2021 Telephone encounter Geneva Mary Grace [facility] Start: 12-16-2021 End: 12-17-[address] JOHN EPRDOMO [facility] Other Start: 12-09-2021 End: 12-10-2021 ambulatory JOHN PERDOMO Facility:[facility] Start: 12-08-2021 End: 12-08-2021 ambulatory Geneva Mary Grace Other [facility] Other Start: 12-08-2021 Telephone encounter Geneva Mary Grace [facility] Start: 12-07-2021 End: 12-07-[address] JOHN PERDOMO Facility:[facility] Start: 12-06-2021 End: 12-07-[address] JOHN PERDOMO Facility:[facility] Start: 12-01-2021 End: 12-02-[address] JOHN PERDOMO Facility:[facility] Start: 11-19-2021 End: 11-20-[address] JOHN PERDOMO Facility:[facility] Start: 11-01-2021 End: 11-01-2021 ambulatory Geneva Mary Grace Other [facility] Other Start: 11-01-2021 Encounter by jose parrish Geneva Mary Grace [facility] Start: 10-28-2021 End: 10-28-2021 ambulatory Geneva Mary Grace Other [facility] Other Start: 10-28-2021 Telephone encounter Geneva Mary Grace [facility] Start: 10-13-2021 End: 10-13-2021 ambulatory Geneva Mary Grace Other [facility] Other Start: 10-13-2021 Encounter by AriadNEXT r link Geneva Mary Grace [facility] Start: 10-06-2021 End: 10-06-2021 ambulatory Geneva Mary Grace Other [facility] Other Start: 10-06-2021 Telephone encounter Geneva Mary Grace [facility] Start: 09-21-2021 End: 09-21-2021 ambulatory Geneva Mary Grace Other [facility] Other Start: 09-21-2021 Telephone encounter Geneva Mary Grace [facility] Start: 09-20-2021 End: 09-20-2021 ambulatory Geneva Mary Grace Other [facility] Other Start: 09-20-2021 Office outpatient visit 25 minutes Geneva Mary Grace [facility] Start: 08-01-2021 End: 08-01-2021 ambulatory Geneva Mary Grace Other [facility] Other Start: 08-01-2021 Encounter by AriadNEXT r link Geneva Mary Grace [facility] Start: 07-18-2021 End: 07-18-2021 ambulatory Geneva Mary Grace Other [facility] Other Start: 07-18-2021 Encounter by AriadNEXT r link Geneva Mary Grace [facility] Start: 05-18-2021 End: 05-18-2021 ambulatory Geneva Mary Grace Other [facility] Other Start: 05-18-2021 Office outpatient visit 25 minutes [facility] Immunizations Immunization Date Immunization Notes Care Provider Inder burns NEGATED: Highlighted row has not occurred!06-05-2019 influenza, high dose seasonal, preservative-free Patient Objection Geneva Jenkins Other [facility] [employer] Other Medications Current Medications Medication Drug Class(es) Dates Sig (Normalized) Sig (Original) allopurinol 100 mg oral tablet (20 sources) Xanthine Oxidase Inhibitor Start: 09-06-2023 take 1 tablet by mouth once daily Allopurinol Active 0 .ROUTE .COMPLEX September 06, 2023 5:52pm TAKE 1 TABLET BY MOUTH EVERY DAY Start: 09-05-2023 End: 09-06-2023 take 1 tablet by mouth once daily Allopurinol Discontinued 100 MG PO Daily September 05, 2023 6:29pm September 06, 2023 5:52pm FreeText[employer]: TAKE 1 TABLET BY MOUTH EVERY DAY; Note: Source Status: Taking; Refills: 1; Qty: 90 Tablet; Provider: Mary Grace Bean ( ) take 1 tablet by yossi th every twenty-four hours Allopurinol 100 MG 1 tablet Orally Once a day for 90 day(s) Active amLODIPine 10 mg oral tablet (20 sources) Dihydropyridine Calcium Channel Ranjit Start: 09-25-2023 take 1 tablet by mouth once daily Amlodipine Active 1 TAB PO Daily September 25, 2023 12:00am FreeTextSi tablet Orally Once a day; Note: Source Status: Taking; Provider: Mary Grace Bean ( ) take 1 tablet by yossi th every twenty-four hours amLODIPine Besylate 10 MG 1 tablet Orall y Once a day Active aspirin 81 mg delayed release oral tablet (20 sources) Platelet Aggregation Inhibitor, Nonsteroidal Anti-inflammatory Drug Start: 09-25-2023 take 1 tablet by mouth once daily Aspirin Active 1 TAB PO Daily September 25, 2023 12:00am Free[employer] tablet Orally Once a day; Note: Source Status: Taking; Provider: Mary Grace Bean ( ) take 1 tablet by yossi th every twenty-four hours Aspirin 81 81 MG 1 tablet Orally Once a day Active take 1 tablet by mouth once alayna y Aspirin 81 81 MG 1 tablet Orally Once a day Active take 1 tablet by mouth once alayna y Aspirin 81 81 MG 1 tablet Orally Once a day Active take 1 tablet by mouth every oth er day Aspirin 81 81 MG 1 tablet Orally EVERY OTHER DAY Active atorvastatin 40 mg oral tablet (20 sources) HMG-CoA Reductase Inhibitor Start: 09-25-2023 take 1 tablet by mouth once daily Atorvastatin Active 1 TAB PO Daily September 25, 2023 12:00am Free[employer] tablet Orally Once a day; Note: Source Status: Taking; Provider: Mary Grace Bean ( ) take 1 tablet by yossi th every twenty-four hours Atorvastatin Calcium 40 MG 1 tablet Oral ly Once a day Active Basaglar KwikPen 100 [...] mg oral tablet (20 sources) Loop Diuretic Start: 09-25-19 take 1 tablet by mouth twice daily Bumetanide Active MG PO September 25, 2023 12:00am Free[employer]Si 1/2 TABLETS Orally TWICE A DAY; Note: Source Status: Taking; Provider: Mary Grace Bean ( ) take 1 tablet by mouth twice zuhair ly Bumetanide 2 MG 1 1/2 TABLETS Orally [...] mg/ml / timolol 5 mg/ml ophthalmic solution (4 sources) Carbonic Anhydrase Inhibitor, beta-Adrenergic Ranjit Start: 09-25-2023 take 1 drop(s) into the eye(s) twice daily Dorzolamide-Timolol Active 1 DROPS OPHTHALMIC Twice daily September 25, 2023 12:00am FreeTextSi drop into affected eye Ophthalmic Twice a day; Note: Source Status: Taking; Provider: Mary Grace Bean ( ) Dorzolamide HCl- Timolol Mal 2-0.5 % 1 drop into affected eye Ophthalmic Twice a day Active doxazosin 4 mg oral tablet (20 sources) alpha-Adrenergic Ranjit Start: 09-25-2023 take 1 tablet by mouth twice daily Doxazosin Active MG PO September 25, 2023 12:00am Free[employer] 1/2 TABLETS Orally TWICE A DAY; Note: Source Status: Taking; Provider: Mary Grace Bean ( ) take 1 tablet by mouth twice zuhair ly Doxazosin Mesylate 4 MG 1 1/2 TABLETS Orally TWICE A DAY Active ergocalciferol 1.25 mg oral capsule (20 sources) Provitamin D2 Compound Start: 09-25-2023 take 1 capsule by mouth every week Ergocalciferol (Vitamin D2) Active 80029 UNIT PO EVERY 2 WEEKS September 25, 2023 12:00am FreeTextSig: TAKE 1 CAPSULE BY MOUTH ONE TIME PER WEEK; Note: Source Status: Start; Refills: 2; Qty: 12 Capsule; Provider: Mary Grace Bean ( ) take 1 capsule by mouth every we ek Vitamin D (Ergocalciferol) 1.25 MG (25529 UT) TAKE 1 CAPSULE BY MOUTH ONE TIME PER WEEK for 84 Active take 1 capsule by mo uth every other week Ergocalciferol 1.25 MG (58477 UT) 1 caps ule Orally Q2 week for 90 days Active ferrous sulfate 325 mg oral tablet (20 sources) Start: 09-06-2023 take 1 tablet by mouth every other day Ferrous Sulfate Active 0 .ROUTE .COMPLEX 45 September 06, 2023 4:49pm TAKE 1 TABLET BY MOUTH EVERY OTHER DAY Start: 09-05-2023 End: 09-06-2023 take 1 tablet by mouth every other day Ferrous Sulfate Discontinued 325 MG PO Every 48 hours 45 90 September 05, 2023 6:32pm September 06, 2023 4:49pm FreeTextSig: TAKE 1 TABLET BY MOUTH EVERY OTHER DAY; Note: Source Status: Taking; Refills: 1; Qty: 45 Tablet; Provider: Mary Grace Bean ( ) take 1 tablet by yossi th every other day Ferrous Sulfate 325 (65 Fe) MG TAKE 1 TABLET BY MOUTH EVERY OTHER DAY for 90 Active take 1 tablet by yossi th every other day Ferrous Sulfate 325 (65 Fe) MG TAKE 1 TABLET BY MOUTH EVERY OTHER DAY for 90 Active Ferrous Sulfate 325 (65 Fe) MG TAKE 1 TABLET BY MOUTH EVERY OTHER DAY FOR 90 DAYS for 90 Active hydrALAZINE hydrochloride 25 mg oral tablet (20 sources) Arteriolar Vasodilator Start: 09-25-2023 take 1 tablet by mouth three times daily at mealtime Hydralazine Active 1 TAB PO Three times daily September 25, 2023 12:00am FreeTextSi tablet with food Orally Three times a day; Note: Source Status: Taking; Refills: 1; Qty: 270 Tablet; Provider: Mary Grace Bean ( ) Start: 09-20-2021 take 1 tablet by yossi th every twelve hours hydrALAZINE HCl 25 MG 1 tablet with food Orally bid for 90 day(s) Aug, Active take 1 tablet by yossi th every eight hours hydrALAZINE HCl 25 MG 1 tablet with food Orally Three times a day for 90 day(s) Active 3 ml insulin glargine 100 unt/ml pen injector (1 source) Insulin Analog Start: 09-25-2023 Insulin Glargi ne (Nileshagllonnie Fritz U-100 Insulin) 100 unit/mL (3 mL) insulin pen Active UNIT SUBCUT September 25, 2023 12:00am FreeTextSi units SQ three times a day prn; Note: Source Status: Taking*please review for potential _update for e-prescription and drug interaction check*; Provider: Mary Grace Bean ( ) Iron (3 sources) Iron 325 (65 Fe) MG TAKE 1 TABLET BY MOUTH EVERY OTHER DAY Orally EVERY OTHER DAY for 90 days Active take 1 tablet by mouth every oth er day Iron 325 (65 Fe) MG TAKE 1 TABLET BY MOUTH EVERY OTHER DAY for 90 Active isosorbide dinitrate 30 mg oral tablet (7 sources) Nitrate Vasodilator Start: 09-25-2023 take 1 tablet by mouth once daily Isosorbide Dinitrate Active 30 MG PO Daily September 25, 2023 12:00am FreeTextSi tablet Orally ONCE A DAY; Note: Source Status: Taking; Provider: Mary Grace Bean ( ) take 1 tablet by yossi th every [...] 0.05 mg oral tablet (20 sources) l-Thyroxine Start: 09-25-2023 take 1 tablet by mouth once daily in the morning Levothyroxine Active 1 TAB PO Daily September 25, 2023 12:00am FreeTextSi tablet in the morning on an empty stomach Orally Once a day; Note: Source Status: Taking; Provider: Mary Grace Bean ( ) take 1 tablet by yossi th once daily in the morning Levothyroxine Sodium 50 MCG 1 tablet in the morning on an empty stomach Orally Once a day Active take 1 tablet by yossi th once daily in the morning Levothyroxine Sodium 50 MCG 1 tablet in the morning on an empty stomach Orally Once a day Active take 1 tablet by yossi once daily in the morning Levothyroxine Sodium 25 MCG 1 tablet in the morning on an empty stomach Orally Once a day Active metOLazone 2.5 mg oral tablet (20 sources) Thiazide-like Diuretic Start: 09-25-2023 Metolaz one Active 2.5 MG PO Every 48 hours September 25, 2023 12:00am FreeText[employer] tablet Orally MONDAY, MONDAY, MONDAY NEEDED; Note: Source Status: Taking; Provider: Mary Grace Bean ( ) metOLazone 2.5 M G 1 tablet Orally MONDAY, MONDAY, MONDAY NEEDED Active metoprolol tartrate 50 mg oral tablet (20 sources) beta-Adrenergic Ranjit Start: 09-25-2023 Metopr olol Tartrate Active MG PO September 25, 2023 12:00am FreeTextSi 1/2 tablet with food Orally Twice a day; Note: Source Status: Taking; Provider: Mary Grace Bean ( ) Metoprolol Tartr ate 50 MG 1 1/2 tablet with food Orally Twice a day Active potassium chloride 20 meq extended release oral tablet (20 sources) Start: 09-25-2023 take 2 tablets by mouth three times daily Potassium Chloride Active MEQ PO September 25, 2023 12:00am FreeTextSi Tablet Orally tid; Note: Source Status: Taking; Refills: 0; Qty: 540 Tablet; Provider: Mary Grace Bean ( ) take 2 tablets by mouth three ti mes daily Potassium Chloride ER 20 MEQ TAKE 2 TABLETS BY MOUTH 3 TIMES A DAY for 90 Active Klor-Con M20 20 MEQ TAKE 2 TABLETS BY MOUTH IN THE MORNING, 2 TABLETS AT NOON, AND 1 TABLET IN THE EVENING for 90 Active take 2 tablets by mo [facility] every twelve hours Potassium Chloride ER 20 MEQ 2 Tablet Orally bid for 90 days Active Payers Date Payer Category Payer Medicare [id number] 1958 Unknown [id number] 1950 Unknown [id number] 2.16.8 [id number] 1950 Unknown [id number] 2.16.84 0.1.354641.3.579.2.593 1950 Unknown [id number] 2.16.84 0.1.903656.3.579.2.593 1950 Unknown [id number] 2.16.84 0.1.387026.3.579.2.593 1950 Unknown [id number] 2.16.84 0.1.137757.3.579.2.593 1950 Unknown [id number] 2.16.84 0.1.014034.3.579.2.593 1950 Unknown [id number] 2.16.84 0.1.751998.3.579.2.593 1950 Unknown [id number] 2.16.84 0.1.920319.3.579.2.593 1950 Unknown [id number] 2.16.84 0.1.823710.3.579.2.593 1950 Unknown [id number] 2.16.84 0.1.641998.3.579.2.593 1950 Unknown [id number] 2.16.84 0.1.776026.3.579.2.593 1950 Unknown [id number] 2.16.84 0.1.345811.3.579.2.593 1950 Unknown [id number] 2.16.84 0.1.795950.3.579.2.593 1950 Unknown [id number] 2.16.84 0.1.199236.3.579.2.593 1950 Unknown [id number] 2.16.84 0.1.070865.3.579.2.593 1950 Unknown [id number] 2.16.84 0.1.695035.3.579.2.593 1950 Unknown [id number] 2.16.84 0.1.298223.3.579.2.593 1950 Unknown [id number] 2.16.84 0.1.851860.3.579.2.593 1950 Unknown [id number] 2.16.84 0.1.520967.3.579.2.593 1950 Unknown [id number] 2.16.84 0.1.657147.3.579.2.593 1950 Unknown [id number] 2.16.84 0.1.593166.3.579.2.593 1950 Unknown [id number] 2.16.84 0.1.621081.3.579.2.1259 1950 Unknown [id number] 2.16.84 0.1.279938.3.579.2.1259 Self-pay Self Pay [id number] Unknown Regular Insurance [id number] Plan of Treatment Date Care Activity Detail Author Immunofixation for Urine [facility] Renal function 2000 panel - Serum or Plasma [facility] Problems Active Problems Problem Classification Problem Date [...] disease (5 sources) Atherosclerotic heart disease of [place] coronary artery without angina pectoris; Translations: [Atherosclerotic heart disease of [place] coronary artery with other forms of angina pectoris] Onset: 2 Chronic Coronary atherosclerosis and other heart disease (2 sources) Presence of aortocoronary bypass graft; Translations: [Presence of aortocoronary bypass graft] Onset: 4 Episodic Deficiency and other anemia (20 sources) Anemia of renal disease; Translations: [Anemia in chronic kidney disease] 09-05-2023 Chronic Deficiency and other anemia (2 sources) Anemia in chronic kidney disease Chronic Diabetes mellitus with complications (20 sources) Disorder of kidney due to diabetes mellitus; Translations: [Type 2 diabetes mellitus with diabetic chronic kidney disease] Onset: 1 Resolved: 2 Chronic Disorders of lipid metabolism (2 sources) Hyperlipidemia; Translations: [Hyperlipidemia, unspecified] 09-25-2023 Chronic Essential hypertension (7 sources) Essential (primary) hypertension; Translations: [ESSENTIAL PRIMARY HYPERTENSION] Onset: 2 Chronic Fluid and electrolyte disorders (15 sources) Hypokalemia; Translations: [Hypokalemia] Onset: 1 Resolved: 2 Episodic Genitourinary symptoms and ill-defined conditions (10 sources) Other microscopic hematuria; Translations: [Microscopic hematuria] Onset: 1 Resolved: 2 Episodic Heart valve [...] hyperparathyroidism; Translations: [Secondary hyperparathyroidism of renal origin] 09-25-2023 Chronic Other diseases of kidney and ureters (9 sources) Secondary hyperparathyroidism of renal origin; Translations: [Secondary hyperparathyroidism (of renal origin)] Onset: 1 Resolved: 2 Chronic Other non-traumatic joint disorders (20 sources) Arthralgia of the lower leg; Translations: [Right knee pain] Episodic Other nutritional; endocrine; and metabolic disorders (10 sources) 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 inflammatory arthritis and tophaceous disease; Translations: [Other abnormal blood chemistry] Onset: 1 Resolved: 2 Episodic Other nutritional; endocrine; and metabolic disorders (1 source) Hyperuricemia; Translations: [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 inflammatory arthritis and tophaceous disease] 09-05-2023 Episodic Thyroid disorders (20 sources) Non-toxic multinodular [...] [facility] Facility Office Visiton 09-04-2023 Follow-up visit [id number] Claudia Estrella 1950 Date Provider Department Center 09/04/2023 KARTHIK MACKAY [facility] Family History Problem Relation Age of Onset Heart attack Mother Heart failure Mother Heart attack Father Family Status - Relation Status Age at Mother Father Level of Service:21645 [place] OFFICE/OUTPATIENT ESTABLISHED LOW MDM 20 MIN [facility] 36on 08-09-2023 36 I reviewed her echocardiogram from today and it shows evidence of significant volume overload. 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 If she is not responding to pills then we might need to admit her for intravenous diuretic therapy. [facility] Telephoneon 08-09-2023 Telephone [id number] Claudia Estrella 1950 Date Provider Department Center 08/09/2023 KARTHIK MACKAY [facility] Family History Problem Relation Age of Onset Heart attack Mother Heart failure Mother Heart attack Father Family Status - Relation Status Age at Mother Father [facility] Office Visiton 08-04-2023 Follow-up visit [id number] Claudia Estrella 1950 Date Provider Department Center 08/04/2023 KARTHIK MACKAY Family History Problem Relation Age of Onset Heart attack Mother Heart failure Mother Heart attack Father Family Status - Relation Status Age at Mother Father Level of Service:34029 [place] OFFICE/OUTPATIENT ESTABLISHED MOD MDM 30 MIN [facility] Office Visiton 02-24-2023 Follow-up visit [id number] Claudia Estrella 1950 F Date Provider Department Center 02/24/2023 CARMINA REAVES [facility] Family History Problem Relation Age of Onset Heart attack Mother Heart failure Mother Heart attack Father Family Status - Relation Status Age at Mother Father Level of Service:67172 [place] OFFICE/OUTPATIENT ESTABLISHED LOW MDM 20-29 MIN [facility] Orders Onlyon 12-09-2022 Orders Only [id number] Claudia Estrella 1950 F Date Provider Department Center 12/09/2022 FRANCIS MUÑOZ [facility] Hos Family History Problem Relation Age of Onset Heart attack Mother Heart failure Mother Heart attack Father Family Status - Relation Status Age at Mother Father Normal [facility] 36on 10-26-2022 36 [facility] lab called to report a critical BNP of 1458. Normal [facility] BNPon 10-26-2022 Natriuretic peptide B (Bld) [Mass/Vol] 1458.0 pg/mL Critically high <=900.0 [facility] Comment on above: Performed By: #### L IPID, TSH, FT3 #### [facility] [address] [address] [address] Andrey Hargrove CBC AUTO DIFFon 10-26-2022 BASO # 0.1 103/ul Normal 0.0-0.[address] [facility] Comment on above: Performed By: #### V ITAD, FETIBC, FERR #### [facility] [address] [address] [address] Andrey Hargrove Basophils/100 WBC (Bld) 0.7 % Normal 0.2-2.[address] [facility] Comment on above: Performed By: #### V ITAD, FETIBC, FERR #### [facility] [address] [address] [address] Andrey Hargrove EO # 0.4 103/ul Normal 0.0-0.[address] [facility] Comment on above: Performed By: #### V ITAD, FETIBC, FERR #### [facility] [address] [address] [address] Andrey Hargrove Eosinophils/100 WBC (Bld) 4.6 % Normal 0.9-7.[address] [facility] [facility] Comment on above: Performed By: #### V ITAD, FETIBC, FERR #### [facility] [address] [address] [address] Andrey Hargrove Erythrocyte distribution width (RBC) [Ratio] 13.7 % Normal 11.0-15.[address] [facility] Comment on above: Performed By: #### V ITAD, FETIBC, FERR #### [facility] [address] [place] [address] Dr. Andrey Hargrove Hematocrit (Bld) [Volume fraction] 35.5 % Critically low 36.0-48.[address] [facility] Comment on above: Performed By: #### V ITAD, FETIBC, FERR #### [facility] [address] [place] [address] Dr. Andrey Hargrove Hemoglobin (Bld) [Mass/Vol] 12.0 g/dL Normal 12.0-16.[address] [facility] Comment on above: Performed By: #### V ITAD, FETIBC, FERR #### [facility] [address] [place] [address] Dr. Andrey Hargrove IG # 0.02 10e3/ul Normal 0.00-0.[address] [facility] Comment on above: Performed By: #### V ITAD, FETIBC, FERR #### [facility] [address] [place] [address] Dr. Andrey Hargrove IG % 0.2 % Normal 0.0-0.[address] [facility] Comment on above: Performed By: #### V ITAD, FETIBC, FERR #### [facility] [address] [place] [address] Dr. Andrey Hargrove LYMPH # 1.5 103/ul Normal 1.2-3.[address] [facility] Comment on above: Performed By: #### V ITAD, FETIBC, FERR #### [facility] [address] [place] [address] Dr. Andrey Hargrove Lymphocytes/100 WBC (Bld) 18.1 % Critically low 20.5-60.[address] [facility] Comment on above: Performed By: #### V ITAD, FETIBC, FERR #### [facility] [address] [place] [address] Dr. Andrey Hargrove MANUAL DIFF REQ NO Normal [facility] Comment on above: Performed By: #### V ITAD, FETIBC, FERR #### [facility] [address] [place] [address] Dr. Andrey Hargrove MCH (RBC) [Entitic mass] 29.3 pg Normal 26.7-34.0 [facility] Comment on above: Performed By: #### V ITAD, FETIBC, FERR #### [facility] [address] [place] [address] Dr. Andrey Hargrove MCHC (RBC) [Mass/Vol] 33.8 g/dL Normal 29.9-35.2 [facility] Comment on above: Performed By: #### V ITAD, FETIBC, FERR #### [facility] [address] [place] [address] Dr. Andrey Hargrove MCV (RBC) [Entitic vol] 86.8 fL Normal 81.0-99.0 [facility] Comment on above: Performed By: #### V ITAD, FETIBC, FERR #### [facility] [address] [place] [address] Dr. Andrey Hargrove MONO # 0.7 103/ul Normal 0.3-0.8 [facility] Comment on above: Performed By: #### V ITAD, FETIBC, FERR #### [facility] [address] [place] [address] Dr. Andrey Hargrove Monocytes/100 WBC (Bld) 7.9 % Normal 1.7-12.[address] [facility] Comment on above: Performed By: #### V ITAD, FETIBC, FERR #### [facility] [address] [place] [address] Dr. Andrey Hargrove NEUT # 5.7 103/ul Normal 1.4-6.5 [facility] Comment on above: Performed By: #### V ITAD, FETIBC, FERR #### [facility] [address] [place] [address] Dr. Andrey Hargrove Neutrophils/100 WBC (Bld) 68.5 % Normal 43.0-75.[address] [facility] Comment on above: Performed By: #### V ITAD, FETIBC, FERR #### [facility] [address] [place] [address] Dr. Andrey Hargrove Platelet mean volume (Bld) [Entitic vol] 10.4 fL Normal 9.5-13.[address] [facility] Comment on above: Performed By: #### V ITAD, FETIBC, FERR #### [facility] [address] [address] [address] Andrey Hargrove PLT 204 103/ul Normal 150-[address] [facility] Comment on above: Performed By: #### V ITAD, FETIBC, FERR #### [facility] [address] [address] [address] Andrey Hargrove RBC 4.09 106/ul Critically low 4.20-5.40 [facility] Comment on above: Performed By: #### V ITSHAQ, ALTAGRACIAIBC, FERR #### [facility] [address] [place] [address] Dr. Andrey Hargrove WBC 8.3 103/ul Normal 4.0-11.[address] [facility] Comment on above: Performed By: #### V ITSHAQ, JOSEC, FERR #### [facility] [address] [place] [address] Dr. Andrey Hargrove PROF CHEM 8 (BAS METB)on Anion gap [Moles/Vol] 11.1 mmol/L Normal [facility] Comment on above: Performed By: #### L IPID, TSH, FT3 #### [facility] [address] [place] [address] Dr. Andrey Hargrove Calcium [Mass/Vol] 9.2 mg/dL Normal 8.5-10.1 [facility] Comment on above: Performed By: #### L IPID, TSH, FT3 #### [facility] [address] [place] [address] Dr. Andrey Hargrove Chloride [Moles/Vol] 102 mmol/L Normal 98-[address] [facility] Comment on above: Performed By: #### L IPID, TSH, FT3 #### [facility] [address] [place] [address] Dr. Andrey Hargrove CO2 [Moles/Vol] 31.2 mmol/L Normal 21.0-32.0 [facility] Comment on above: Performed By: #### L IPID, TSH, FT3 #### [facility] [address] [address] [address] Andrey Hargrove Creatinine [Mass/Vol] 1.79 mg/dL Critically high 0.55-1.[address] [facility] Comment on above: Performed By: #### L IPID, TSH, FT3 #### [facility] [address] [address] [address] Andrey Hargrove EGFR-AF MARTINIQUAIS 34 mL/min/1.73m2 Critically low >=[address] [facility] Comment on above: Performed By: #### L IPID, TSH, FT3 #### [facility] [address] [place] [address] Dr. Andrey Hargrove EGFR-NON AF MARTINIQUAIS 28 mL/min/1.73m2 Critically low >=[address] [facility] Comment on above: Performed By: #### L IPID, TSH, FT3 #### [facility] [address] [address] [address] Andrey Hargrove Glucose [Mass/Vol] 148 mg/dL Critically high 74-106 [facility] Comment on above: Performed By: #### L IPID, TSH, FT3 #### [facility] [address] [place] [address] Dr. Andrey Hargrove Potassium [Moles/Vol] 3.3 mmol/L Critically low 3.5-5.[address] [facility] Comment on above: Performed By: #### L IPID, TSH, FT3 #### [facility] [address] [place] [address] Dr. Andrey Hargrove Sodium [Moles/Vol] 141 mmol/L Normal 136-145 [facility] Comment on above: Performed By: #### L IPID, TSH, FT3 #### [facility] [address] [place] [address] Dr. Andrey Hargrove Urea nitrogen [Mass/Vol] 41.0 mg/dL Critically high 7.0-18.[address] [facility] Comment on above: Performed By: #### L IPID, TSH, FT3 #### [facility] [address] [place], [place] [address] Dr. Andrey Hargrove Urea nitrogen/Creatinine [Mass ratio] 22.9 mg/mg Normal [facility] Comment on above: Performed By: #### L IPID, TSH, FT3 #### [facility] [address] [place], [place] [address] Dr. Andrey Hargrove Office Visiton 09-12-2022 Follow-up visit [id number] SameerClaudia E 1950 F Date Provider Department Center 09/12/2022 KARTHIK MACKAY [facility] Family History Problem Relation Age of Onset Heart attack Mother Heart failure Mother Heart attack Father Family Status - Relation Status Age at Mother Father Level of Service:40563 [place] OFFICE/OUTPATIENT ESTABLISHED MOD MDM 30-39 MIN Reason for Visit and Comments: Coronary Artery Disease [187] Hypertension [433003] Congestive Heart Failure [127] Normal [facility] PTH INTACTon 08-24-2022 PTH, Intact 44 pg/mL Normal 15-[address] [facility] Comment on above: Performed By: #### V ITAD, FETIBC, FERR #### [facility] [id number] Andrey Hargrove US THYROIDon 08-24-2022 US [...] RENETTA RENEE Date: 2022-08-24 16:16 Normal [facility] FERRITINon 08-23-2022 Ferritin [Mass/Vol] 114.0 ng/mL Normal 8.0-252.0 [facility] Comment on above: Performed By: #### V ITAD, FETIBC, FERR #### [facility] [address] [place] [address] Dr. Andrey Hargrove HEMOGRAM AND PLATELon 2022 Hematocrit (Bld) [Volume fraction] 34.9 % Critically low 36.0-48.[address] [facility] Comment on above: Performed By: #### V ITAD, FETIBC, FERR #### [facility] [address] [place] [address] Dr. Andrey Hargrove Hemoglobin (Bld) [Mass/Vol] 11.8 g/dL Critically low 12.0-16.0 [facility] Comment on above: Performed By: #### V ITAD, FETIBC, FERR #### [facility] [address] [place] [address] Dr. Andrey Hargrove MCH (RBC) [Entitic mass] 28.6 pg Normal 26.7-34.0 [facility] Comment on above: Performed By: #### V ITAD, FETIBC, FERR #### [facility] [address] [place] [address] Dr. Andrey Hargrove MCHC (RBC) [Mass/Vol] 33.8 g/dL Normal 29.9-35.2 [facility] Comment on above: Performed By: #### V ITAD, FETIBC, FERR #### [facility] [address] [place] [address] Dr. Andrey Hargrove MCV (RBC) [Entitic vol] 84.7 fL Normal 81.0-99.0 [facility] Comment on above: Performed By: #### V ITAD, FETIBC, FERR #### [facility] [address] [place] [address] Dr. Andrey Hargrove PLT 215 103/ul Normal 150-[address] [facility] Comment on above: Performed By: #### V ITAD, FETIBC, FERR #### [facility] [address] [place] [address] Dr. Andrey Hargrove RBC 4.12 106/ul Critically low 4.20-5.40 [facility] Comment on above: Performed By: #### V ITAD, FETIBC, FERR #### [facility] [address] [place] [address] Dr. Andrey Hargrove WBC 9.2 103/ul Normal 4.0-11.[address] [facility] Comment on above: Performed By: #### V ITAD, FETIBC, FERR #### [facility] [address] [place] [address] Dr. Andrey Hargrove IRON AND TIBCon 08-23-2022 % SATURATION 15.4 % Normal [facility] Comment on above: Performed By: #### V ITAD, FETIBC, FERR #### [facility] [address] [place] [address] Dr. Andrey Hargrove Iron [Mass/Vol] 44.0 ug/dL Critically low 50.0-170.0 [facility] Comment on above: Performed By: #### V ITAD, FETIBC, FERR #### [facility] [address] [place] [address] Dr. Andrey Hargrove TIBC DIRECT 286.0 ug/dL Normal 250.0-450.0 [facility] Comment on above: Performed By: #### V ITAD, FETIBC, FERR #### [facility] [address] [place] [address] Dr. Andrey Hargrove MAGNESIUMon 08-23-2022 Magnesium [Mass/Vol] 2.1 mg/dL Normal 1.8-2.[address] [facility] Comment on above: Performed By: #### L IPID, TSH, FT3 #### [facility] [address] [place] [address] Dr. Andrey Hargrove RENAL FUNCTION PANELon 08-23 Albumin [Mass/Vol] 3.3 g/dL Critically low 3.4-5.0 [facility] Comment on above: Performed By: #### L IPID, TSH, FT3 #### [facility] [address] [address] [address] Andrey Hargrove Calcium [Mass/Vol] 9.4 mg/dL Normal 8.5-10.1 [facility] Comment on above: Performed By: #### L IPID, TSH, FT3 #### [facility] [address] [address] [address] Andrey Hargrove Chloride [Moles/Vol] 103 mmol/L Normal 98-[address] [facility] Comment on above: Performed By: #### L IPID, TSH, FT3 #### [facility] [address] [place] [address] Dr. Andrey Hargrove CO2 [Moles/Vol] 26.8 mmol/L Normal 21.0-32.0 [facility] Comment on above: Performed By: #### L IPID, TSH, FT3 #### [facility] [address] [address] [address] Andrey Hargrove Creatinine [Mass/Vol] 1.94 mg/dL Critically high 0.55-1.[address] [facility] Comment on above: Performed By: #### L IPID, TSH, FT3 #### [facility] [address] [place] [address] Dr. Andrey Hargrove EGFR-AF MARTINIQUAIS 31 mL/min/1.73m2 Critically low >=[address] [facility] Comment on above: Performed By: #### L IPID, TSH, FT3 #### [facility] [address] [place] [address] Dr. Andrey Hargrove EGFR-NON AF MARTINIQUAIS 25 mL/min/1.73m2 Critically low >=[address] [facility] Comment on above: Performed By: #### L IPID, TSH, FT3 #### [facility] [address] [place] [address] Dr. Andrey Hargrove Glucose [Mass/Vol] 166 mg/dL Critically high 74-106 [facility] Comment on above: Performed By: #### L IPID, TSH, FT3 #### [facility] [address] [place] [address] Dr. Andrey Hargrove Phosphate [Mass/Vol] 4.6 mg/dL Normal 2.6-4.[address] [facility] Comment on above: Performed By: #### L IPID, TSH, FT3 #### [facility] [address] [place] [address] Dr. Andrey Hargrove Potassium [Moles/Vol] 4.3 mmol/L Normal 3.5-5.[address] [facility] Comment on above: Performed By: #### L IPID, TSH, FT3 #### [facility] [address] [place] [address] Dr. Andrey Hargrove Sodium [Moles/Vol] 137 mmol/L Normal 136-145 [facility] Comment on above: Performed By: #### L IPID, TSH, FT3 #### [facility] [address] [place] [address] Dr. Andrey Hargrove Urea nitrogen [Mass/Vol] 39.0 mg/dL Critically high 7.0-18.[address] [facility] Comment on above: Performed By: #### L IPID, TSH, FT3 #### [facility] [address] [place] [address] Dr. Andrey Hargrove UA RANDOM W/MICROSCOPICon BACTERIA NONE SEEN Normal NONE SEEN [facility] Comment on above: Performed By: #### V ITAD, FETIBC, FERR #### [facility] [address] [place] [address] Dr. Andrey Hargrove Bilirubin Ql (U) Negative Normal NEGATIVE [facility] Comment on above: Performed By: #### V ITAD, FETIBC, FERR #### [facility] [address] [place] [address] Dr. Andrey Hargrove CAST NONE SEEN Normal NONE SEEN [facility] Comment on above: Performed By: #### V ITAD, FETIBC, FERR #### [facility] [address] [place] [address] Dr. Andrey Hargrove Clarity (U) CLEAR Normal CLEAR [facility] Comment on above: Performed By: #### V ITAD, FETIBC, FERR #### [facility] [address] [place] [address] Dr. Andrey Hargrove Color (U) LT. YELLOW Normal YELLOW [facility] Comment on above: Performed By: #### V ITAD, FETIBC, FERR #### [facility] [address] [place] [address] Dr. Andrey Hargrove Crystals LM Nom (Urine sed) NONE SEEN Normal NONE SEEN [facility] Comment on above: Performed By: #### V ITAD, FETIBC, FERR #### [facility] [address] [place] [address] Dr. Andrey Hargrove Epithelial cells LM Ql (Urine sed) RARE Normal NONE SEEN /RARE [facility] Comment on above: Performed By: #### V ITAD, FETIBC, FERR #### [facility] [address] [place] [address] Dr. Andrey Hargrove Glucose Ql (U) Negative Normal NEGATIVE [facility] Comment on above: Performed By: #### V ITAD, FETIBC, FERR #### [facility] [address] [place] [address] Dr. Andrey Hargrove Hemoglobin Ql (U) Negative Normal NEGATIVE [facility] Comment on above: Performed By: #### V ITAD, FETIBC, FERR #### [facility] [address] [place] [address] Dr. Andrey Hargrove Ketones Ql (U) Negative Normal NEGATIVE [facility] Comment on above: Performed By: #### V ITAD, FETIBC, FERR #### [facility] [address] [place] [address] Dr. Andrey Hargrove LEUKOCYTES Negative Normal NEGATIVE [facility] Comment on above: Performed By: #### V ITAD, FETIBC, FERR #### [facility] [address] [place] [address] Dr. Andrey Hargrove MUCOUS NONE SEEN Normal NONE SEEN [facility] Comment on above: Performed By: #### V ITAD, FETIBC, FERR #### [facility] [address] [address] [address] Andrey Hargrove Nitrite Ql (U) Negative Normal NEGATIVE [facility] Comment on above: Performed By: #### V ITAD, FETIBC, FERR #### [facility] [address] [address] [address] Andrey Hargrove pH (U) 6.5 [pH] Normal 5-[address] [facility] Comment on above: Performed By: #### V ITAD, FETIBC, FERR #### [facility] [address] [place] [address] Dr. Andrey Hargrove RBC NONE SEEN Abnormal 0-2 [facility] Comment on above: Performed By: #### V ITAD, FETIBC, FERR #### [facility] [address] [place] [address] Dr. Andrey Hargrove SPEC GRAVITY 1.010 Normal 1.005-<=1.[address] [facility] Comment on above: Performed By: #### V ITAD, FETIBC, FERR #### [facility] [address] [address] [address] Andrey Hargrove UA PROTEIN 30 mg/dl Abnormal NEGATIVE/ TRACE [facility] Comment on above: Performed By: #### V ITAD, FETIBC, FERR #### [facility] [address] [address] [address] Andrey Hargrove Urobilinogen Qn (U) 0.2 {Kelly'U}/dL Normal 0.2 - 1. [address] [facility] Comment on above: Performed By: #### V ITAD, FETIBC, FERR #### [facility] [address] [place] [address] Dr. Andrey Hargrove WBC NONE SEEN Normal NONE SEEN [facility] Comment on above: Performed By: #### V ITAD, FETIBC, FERR #### [facility] [address] [place] [address] Dr. Andrey Hargrove URIC ACID SERUMon 08-23-2022 Urate [Mass/Vol] 5.8 mg/dL Normal 2.6-6.0 [facility] Comment on above: Performed By: #### L IPID, TSH, FT3 #### [facility] [address] [place] [address] Dr. Andrey Hargrove VITAMIN D 25 OHon 08-23-2022 VIT D 25-OH 69.0 ng/mL Normal [facility] Comment on above: Performed By: #### V ITAD, FETIBC, FERR #### [facility] [address] [place] [address] Dr. Andrey Hargrove VIT D RANGES SEE BELOW Normal [facility] Comment on above: Result Comment: <20 ng/mL Vit D deficient 20 - <30 ng/mL Vit D insufficient 30 - 100 ng/mL Vit D sufficient >100 ng/mL Potential Toxicity Performed By: #### V ITAD, FETIBC, FERR #### [facility] [address] [place] [address] Dr. Andrey Hargrove ECHOCARDIO M/2D COMPLETEon 1 08-14-2021 ECHOCARDIO M/2D COMPLETE Patient: CLAUDIA ESTRELLA Exam Date: 06/13/2022 : 1950 Gender:F Ordering : DR KARTHIK FISH M.D. Admission #: [id number] Family : Order #: [id number] CLICK HERE TO VIEW EXAM ECHOCARDIOGRAM REPORT [...] Fish M.D. on 06/14/2022 at 17:[address] [facility] BNPon 06-10-2022 Natriuretic peptide B (Bld) [Mass/Vol] 4197.0 pg/mL Critically high <=900.[address] [facility] Comment on above: Performed By: #### L IPID, TSH, FT3 #### [facility] [address] [place] [address] Dr. Andrey Hargrove PROF CHEM 8 (BAS METB)on Anion gap [Moles/Vol] 10.4 mmol/L Normal [facility] Comment on above: Performed By: #### V ITSHAQ, FETIBC, FERR #### [facility] [address] [address] [address] Andrey Hargrove Calcium [Mass/Vol] 9.4 mg/dL Normal 8.5-10.1 [facility] Comment on above: Performed By: #### V ITAD, FETIBC, FERR #### [facility] [address] [address] [address] Andrey Hargrove Chloride [Moles/Vol] 99 mmol/L Normal 98-[address] [facility] Comment on above: Performed By: #### V ITSHAQ, FETIBC, FERR #### [facility] [address] [address] [address] Andrey Hargrove CO2 [Moles/Vol] 33.8 mmol/L Critically high 21.0-32.[address] [facility] Comment on above: Performed By: #### V ITAD, FETIBC, FERR #### [facility] [address] [place] [address] Dr. Andrey Hargrove Creatinine [Mass/Vol] 2.09 mg/dL Critically high 0.55-1.[address] [facility] Comment on above: Performed By: #### V ITAD, FETIBC, FERR #### [facility] [address] [place] [address] Dr. Andrey Hargrove EGFR-AF MARTINIQUAIS 28 mL/min/1.73m2 Critically low >=[address] [facility] Comment on above: Performed By: #### V ITAD, FETIBC, FERR #### [facility] [address] [place] [address] Dr. Andrey Hargrove EGFR-NON AF MARTINIQUAIS 23 mL/min/1.73m2 Critically low >=[address] [facility] Comment on above: Performed By: #### V ITAD, FETIBC, FERR #### [facility] [address] [place] [address] Dr. Andrey Hargrove Glucose [Mass/Vol] 75 mg/dL Normal 74-106 [facility] Comment on above: Performed By: #### V ITAD, FETIBC, FERR #### [facility] [address] [place] [address] Dr. Andrey Hargrove Potassium [Moles/Vol] 3.2 mmol/L Critically low 3.5-5.[address] [facility] Comment on above: Performed By: #### V ITAD, FETIBC, FERR #### [facility] [address] [place] [address] Dr. Andrey Hargrove Sodium [Moles/Vol] 140 mmol/L Normal 136-145 [facility] [place] Comment on above: Performed By: #### V ITAD, FETIBC, FERR #### [facility] [address] [place] [address] Dr. Andrey Hargrove Urea nitrogen [Mass/Vol] 61.0 mg/dL Critically high 7.0-18.[address] [facility] Comment on above: Performed By: #### V ITAD, FETIBC, FERR #### [facility] [address] [place] [address] Dr. Andrey Hargrove Urea nitrogen/Creatinine [Mass ratio] 29.2 mg/mg Normal [facility] Comment on above: Performed By: #### V ITAD, FETIBC, FERR #### [facility] [address] [place] [address] Dr. Andrey Hargrove BNPon 06-02-2022 Natriuretic peptide B (Bld) [Mass/Vol] 9365.0 pg/mL Critically high <=900.[address] [facility] Comment on above: Performed By: #### V ITAD, FETIBC, FERR #### [facility] [address] [place] [address] Dr. Andrey Hargrove PROF CHEM 8 (BAS METB)on Anion gap [Moles/Vol] 10.7 mmol/L Normal [facility] Comment on above: Performed By: #### V ITAD, FETIBC, FERR #### [facility] [address] [place] [address] Dr. Andrey Hargrove Calcium [Mass/Vol] 9.1 mg/dL Normal 8.5-10.1 [facility] Comment on above: Performed By: #### V ITAD, FETIBC, FERR #### [facility] [address] [place] [address] Dr. Andrey Hargrove Chloride [Moles/Vol] 98 mmol/L Normal 98-[address] [facility] Comment on above: Performed By: #### V ITAD, FETIBC, FERR #### [facility] [address] [place] [address] Dr. Andrey Hargrove CO2 [Moles/Vol] 29.4 mmol/L Normal 21.0-32.0 [facility] Comment on above: Performed By: #### V ITAD, FETIBC, FERR #### [facility] [address] [place] [address] Dr. Andrey Hargrove Creatinine [Mass/Vol] 2.44 mg/dL Critically high 0.55-1.[address] [facility] Comment on above: Performed By: #### V ITAD, FETIBC, FERR #### [facility] [address] [place] [address] Dr. Andrey Hargrove EGFR-AF MARTINIQUAIS 24 mL/min/1.73m2 Critically low >=[address] [facility] Comment on above: Performed By: #### V ITAD, FETIBC, FERR #### [facility] [address] [place] [address] Dr. Andrey Hargrove EGFR-NON AF MARTINIQUAIS 20 mL/min/1.73m2 Critically low >=[address] [facility] Comment on above: Performed By: #### V ITAD, FETIBC, FERR #### [facility] [address] [place] [address] Dr. Andrey Hargrove Glucose [Mass/Vol] 135 mg/dL Critically high 74-106 [facility] Comment on above: Performed By: #### V ITAD, FETIBC, FERR #### [facility] Laboratory [address] [place] [address] Dr. Andrey Hargrove Potassium [Moles/Vol] 4.1 mmol/L Normal 3.5-5.[address] [facility] Comment on above: Performed By: #### V ITAD, FETIBC, FERR #### [facility] [address] [place] [address] Dr. Andrey Hargrove Sodium [Moles/Vol] 134 mmol/L Critically low 136-145 [facility] Comment on above: Performed By: #### V ITAD, FETIBC, FERR #### [facility] [address] [address] [address] Andrey Hargrove Urea nitrogen [Mass/Vol] 81.0 mg/dL Critically high 7.0-18.[address] [facility] Comment on above: Performed By: #### V ITAD, FETIBC, FERR #### [facility] [address] [place] [address] Dr. Andrey Hargrove Urea nitrogen/Creatinine [Mass ratio] 33.2 mg/mg Normal [facility] Comment on above: Performed By: #### V ITAD, FETIBC, FERR #### [facility] [address] [place] [address] Dr. Andrey Hargrove XR ELBOW RT MIN [...] BETSY LAZARO Date: 2022-06-01 17:24 Normal [facility] RENAL FUNCTION PANELon 05-27 Albumin [Mass/Vol] 3.4 g/dL Normal 3.4-5.0 [facility] Comment on above: Performed By: #### L IPID, TSH, FT3 #### [facility] [address] [place] [address] Dr. Andrey Hargrove Calcium [Mass/Vol] 9.1 mg/dL Normal 8.5-10.1 [facility] Comment on above: Performed By: #### L IPID, TSH, FT3 #### [facility] [address] [address] [address] Andrey Hargrove Chloride [Moles/Vol] 99 mmol/L Normal 98-107 [facility] Comment on above: Performed By: #### L IPID, TSH, FT3 #### [facility] [address] [address] [address] Andrey Hargrove CO2 [Moles/Vol] 30.9 mmol/L Normal 21.0-32.0 [facility] Comment on above: Performed By: #### L IPID, TSH, FT3 #### [facility] [address] [address] [address] Andrey Hargrove Creatinine [Mass/Vol] 2.24 mg/dL Critically high 0.55-1.[address] [facility] Comment on above: Performed By: #### L IPID, TSH, FT3 #### [facility] [address] [address] [address] Andrey Hargrove EGFR-AF MARTINIQUAIS 26 mL/min/1.73m2 Critically low >=[address] [facility] Comment on above: Performed By: #### L IPID, TSH, FT3 #### [facility] [address] [place] [address] Dr. Andrey Hargrove EGFR-NON AF MARTINIQUAIS 22 mL/min/1.73m2 Critically low >=[address] [facility] Comment on above: Performed By: #### L IPID, TSH, FT3 #### [facility] [address] [place] [address] Dr. Andrey Hargrove Glucose [Mass/Vol] 94 mg/dL Normal 74-106 [facility] Comment on above: Performed By: #### L IPID, TSH, FT3 #### [facility] [address] [place] [address] Dr. Andrey Hargrove Phosphate [Mass/Vol] 4.7 mg/dL Normal 2.6-4.[address] [facility] Comment on above: Performed By: #### L IPID, TSH, FT3 #### [facility] [address] [place] [address] Dr. Andrey Hargrove Potassium [Moles/Vol] 3.5 mmol/L Normal 3.5-5.[address] [facility] Comment on above: Performed By: #### L IPID, TSH, FT3 #### [facility] [address] [place] [address] Dr. Andrey Hargrove Sodium [Moles/Vol] 136 mmol/L Normal 136-145 [facility] Comment on above: Performed By: #### L IPID, TSH, FT3 #### [facility] [address] [address] [address] Andrey Hargrove Urea nitrogen [Mass/Vol] 72.0 mg/dL Critically high 7.0-18.[address] [facility] Comment on above: Performed By: #### L IPID, TSH, FT3 #### [facility] [address] [place] [address] Dr. Andrey Hargrove PTH INTACTon 05-24-2022 PTH, Intact 24 pg/mL Normal 15-65 [facility] Comment on above: Performed By: #### L IPID, TSH, FT3 #### [facility] [address] [place] [address] Dr. Andrey Hargrove FERRITINon 05-23-2022 Ferritin [Mass/Vol] 190.0 ng/mL Normal 8.0-252.0 [facility] Comment on above: Performed By: #### L IPID, TSH, FT3 #### [facility] [address] [place] [address] Dr. Andrey Hargrove FREE T3on 05-23-2022 FREE T3 1.96 pg/mlL Critically low 2.18-3.98 [facility] Comment on above: Performed By: #### L IPID, TSH, FT3 #### [facility] [address] [place] [address] Dr. Andrey Hargrove FREE T4on 05-23-2022 Free T4 [Mass/Vol] 1.33 ng/dL Normal 0.76-1.46 [facility] Comment on above: Performed By: #### L IPID, TSH, FT3 #### [facility] [address] [place] [address] Dr. Andrey Hargrove HEMOGRAM AND PLATELon 2021 Hematocrit (Bld) [Volume fraction] 30.6 % Critically low 36.0-48.0 [facility] Comment on above: Performed By: #### V ITAD, FETIBC, FERR #### [facility] [address] [place] [address] Dr. Andrey Hargrove Hemoglobin (Bld) [Mass/Vol] 10.4 g/dL Critically low 12.0-16.0 [facility] Comment on above: Performed By: #### V ITAD, FETIBC, FERR #### [facility] [address] [place] [address] Dr. Andrey Hargrove MCH (RBC) [Entitic mass] 28.6 pg Normal 26.7-34.0 [facility] Comment on above: Performed By: #### V ITAD, FETIBC, FERR #### [facility] [address] [place] [address] Dr. Andrey Hargrove MCHC (RBC) [Mass/Vol] 34.0 g/dL Normal 29.9-35.2 [facility] Comment on above: Performed By: #### V ITAD, FETIBC, FERR #### [facility] [address] [place] [address] Dr. Andrey Hargrove MCV (RBC) [Entitic vol] 84.1 fL Normal 81.0-99.0 [facility] Comment on above: Performed By: #### V ITAD, FETIBC, FERR #### [facility] [address] [place] [address] Dr. Andrey Hargrove PLT 179 103/ul Normal 150-450 [facility] Comment on above: Performed By: #### V ITAD, FETIBC, FERR #### [facility] [address] [place] [address] Dr. Andrey Hargrove RBC 3.64 106/ul Critically low 4.20-5.40 [facility] Comment on above: Performed By: #### V ITAD, FETIBC, FERR #### [facility] [address] [place] [address] Dr. Andrey Hargrove WBC 9.5 103/ul Normal 4.0-11.0 [facility] Comment on above: Performed By: #### V ITAD, FETIBC, FERR #### [facility] [address] [place] [address] Dr. Andrey Hargrove IRON AND TIBCon 05-23-2022 % SATURATION 15.9 % Normal [facility] Comment on above: Performed By: #### L IPID, TSH, FT3 #### [facility] [address] [address] [address] Andrey Hargrove Iron [Mass/Vol] 44.0 ug/dL Critically low 50.0-170.0 [facility] Comment on above: Performed By: #### L IPID, TSH, FT3 #### [facility] [address] [address] [address] Andrey Hargrove TIBC DIRECT 276.0 ug/dL Normal 250.0-450.0 [facility] Comment on above: Performed By: #### L IPID, TSH, FT3 #### [facility] [address] [address] [address] Andrey Hargrove LIPID PROFILEon 05-23-2022 CHOL-HDL RATIO NORM SEE BELOW Normal [facility] Comment on above: Result Comment: 3.3 - 4.4 LOW RISK 4.4 - 7.1 AVERAGE RISK 7.1 - 11.0 MODERATE RISK >11.0 HIGH RISK Performed By: #### L IPID, TSH, FT3 #### [facility] [address] [address] [address] Andrey Hargrove Cholesterol [Mass/Vol] 129 mg/dL Normal <=[address] [facility] Comment on above: Performed By: #### L IPID, TSH, FT3 #### [facility] [address] [address] [address] Andrey Hargrove Cholesterol in HDL [Mass/Vol] 55 mg/dL Normal 40-[address] [facility] Comment on above: Performed By: #### L IPID, TSH, FT3 #### [facility] [address] [address] [address] Andrey Hargrove Cholesterol in LDL [Mass/Vol] 59.6 mg/dL Normal [facility] Comment on above: Performed By: #### L IPID, TSH, FT3 #### [facility] [address] [address] [address] Andrey Hargrove Cholesterol.total/Cho lesterol in HDL [Mass ratio] 2.3 {ratio} Normal [facility] Comment on above: Performed By: #### L IPID, TSH, FT3 #### [facility] [address] [address] [address] Andrey Hargrove HDL NORMAL > or = 60 mg/dl - LO W CARDIOVASCULAR RISK <40 mg/dl - HIGH CARDIOVASCULAR RISK Normal [facility] Comment on above: Performed By: #### L IPID, TSH, FT3 #### [facility] [address] [address] [address] Andrey Hargrove LDL CALC NORMAL SEE BELOW Normal [facility] Comment on above: Result Comment: <100 mg/dl OPTIMAL 100 - 129 mg/dl NEAR OR ABOVE OPTIMAL 130 - 159 mg/dl BORDERLINE HIGH 160 - 189 mg/dl HIGH >190 mg/dl VERY HIGH Performed By: #### L IPID, TSH, FT3 #### [facility] [address] [address] [address] Andrey Hargrove Triglyceride [Mass/Vol] 72 mg/dL Normal <=[address] [facility] Comment on above: Performed By: #### L IPID, TSH, FT3 #### [facility] [address] [address] [address] Andrey Hargrove VLDL CALC 14.4 mg/dL Normal [facility] Comment on above: Performed By: #### L IPID, TSH, FT3 #### [facility] [address] [address] [address] Andrey Hargrove MAGNESIUMon 05-23-2022 Magnesium [Mass/Vol] 2.2 mg/dL Normal 1.8-2.[address] [facility] Comment on above: Performed By: #### L IPID, TSH, FT3 #### [facility] [address] [place] [address] Dr. Andrey Hargrove RENAL FUNCTION PANELon 05-23 Albumin [Mass/Vol] 3.5 g/dL Normal 3.4-5.0 [facility] Comment on above: Performed By: #### L IPID, TSH, FT3 #### [facility] [address] [place] [address] Dr. Andrey Hargrove Calcium [Mass/Vol] 10.0 mg/dL Normal 8.5-10.1 [facility] Comment on above: Performed By: #### L IPID, TSH, FT3 #### [facility] [address] [place] [address] Dr. Andrey Hargrove Chloride [Moles/Vol] 98 mmol/L Normal 98-[address] [facility] Comment on above: Performed By: #### L IPID, TSH, FT3 #### [facility] [address] [place] [address] Dr. Andrey Hargrove CO2 [Moles/Vol] 34.3 mmol/L Critically high 21.0-32.[address] [facility] Comment on above: Performed By: #### L IPID, TSH, FT3 #### [facility] [address] [place] [address] Dr. Andrey Hargrove Creatinine [Mass/Vol] 2.24 mg/dL Critically high 0.55-1.[address] [facility] Comment on above: Performed By: #### L IPID, TSH, FT3 #### [facility] [address] [place] [address] Dr. Andrey Hargrove EGFR-AF MARTINIQUAIS 26 mL/min/1.73m2 Critically low >=[address] [facility] Comment on above: Performed By: #### L IPID, TSH, FT3 #### [facility] [address] [place] [address] Dr. Andrey Hargrove EGFR-NON AF MARTINIQUAIS 22 mL/min/1.73m2 Critically low >=[address] [facility] Comment on above: Performed By: #### L IPID, TSH, FT3 #### [facility] [address] [place] [address] Dr. Andrey Hargrove Glucose [Mass/Vol] 123 mg/dL Critically high 74-106 [facility] Comment on above: Performed By: #### L IPID, TSH, FT3 #### [facility] [address] [place] [address] Dr. Andrey Hargrove Phosphate [Mass/Vol] 5.2 mg/dL Critically high 2.6-4.[address] [facility] Comment on above: Performed By: #### L IPID, TSH, FT3 #### [facility] [address] [address] [address] Andrey Hargrove Potassium [Moles/Vol] 3.0 mmol/L Critically low 3.5-5.1 [facility] Comment on above: Performed By: #### L IPID, TSH, FT3 #### [facility] [address] [place] [address] Dr. Andrey Hargrove Sodium [Moles/Vol] 137 mmol/L Normal 136-145 [facility] Comment on above: Performed By: #### L IPID, TSH, FT3 #### [facility] [address] [place] [address] Dr. Andrey Hargrove Urea nitrogen [Mass/Vol] 80.0 mg/dL Critically high 7.0-18.[address] [facility] Comment on above: Performed By: #### L IPID, TSH, FT3 #### [facility] [address] [place] [address] Dr. Andrey Hargrove TSHon 05-23-2022 TSH 4.652 uIU/mL Critically high 0.358-3.740 [facility] Comment on above: Performed By: #### L IPID, TSH, FT3 #### [facility] [address] [place] [address] Dr. Andrey Hargrove UA RANDOM W/MICROSCOPICon BACTERIA NONE SEEN Normal NONE SEEN [facility] Comment on above: Performed By: #### V ITAD, FETIBC, FERR #### [facility] [address] [place] [address] Dr. Andrey Hargrove Bilirubin Ql (U) Negative Normal NEGATIVE [facility] Comment on above: Performed By: #### V ITAD, FETIBC, FERR #### [facility] [address] [place] [address] Dr. Andrey Hargrove CAST NONE SEEN Normal NONE SEEN [facility] Comment on above: Performed By: #### V ITAD, FETIBC, FERR #### [facility] [address] [place] [address] Dr. Andrey Hargrove Clarity (U) CLEAR Normal CLEAR [facility] Comment on above: Performed By: #### V ITAD, FETIBC, FERR #### [facility] [address] [address] [address] Andrey Hargrove Color (U) LT. YELLOW Normal YELLOW [facility] Comment on above: Performed By: #### V ITAD, FETIBC, FERR #### [facility] [address] [address] [address] Andrey Hargrove Crystals LM Nom (Urine sed) NONE SEEN Normal NONE SEEN [facility] Comment on above: Performed By: #### V ITAD, FETIBC, FERR #### [facility] [address] [address] [address] Andrey Hargrove Epithelial cells LM Ql (Urine sed) FEW Abnormal NONE SEEN /RARE [facility] Comment on above: Performed By: #### V ITAD, FETIBC, FERR #### [facility] [address] [place] [address] Dr. Andrey Hargrove Glucose Ql (U) Negative Normal NEGATIVE [facility] Comment on above: Performed By: #### V ITAD, FETIBC, FERR #### [facility] [address] [place] [address] Dr. Andrey Hargrove Hemoglobin Ql (U) TRACE-INTACT Abnormal NEGATIVE [facility] Comment on above: Performed By: #### V ITAD, FETIBC, FERR #### [facility] [address] [place] [address] Dr. Andrey Hargrove Ketones Ql (U) Negative Normal NEGATIVE [facility] Comment on above: Performed By: #### V ITAD, FETIBC, FERR #### [facility] [address] [address] [address] Andrey Hargrove LEUKOCYTES SMALL Abnormal NEGATIVE [facility] Comment on above: Performed By: #### V ITAD, FETIBC, FERR #### [facility] [address] [place] [address] Dr. Andrey Hargrove MUCOUS NONE SEEN Normal NONE SEEN [facility] Comment on above: Performed By: #### V ITAD, FETIBC, FERR #### [facility] [address] [address] [address] Andrey Hargrove Nitrite Ql (U) Negative Normal NEGATIVE [facility] Comment on above: Performed By: #### V ITAD, FETIBC, FERR #### [facility] [address] [address] [address] Andrey Hargrove pH (U) 5.5 [pH] Normal 5-[address] [facility] Comment on above: Performed By: #### V ITAD, FETIBC, FERR #### [facility] [address] [place] [address] Dr. Andrey Hargrove RBC 0-2 Normal 0-[address] [facility] Comment on above: Performed By: #### V ITAD, FETIBC, FERR #### [facility] [address] [place] [address] Dr. Andrey Hargrove SPEC GRAVITY 1.010 Normal 1.005-<=1.[address] [facility] Comment on above: Performed By: #### V ITAD, FETIBC, FERR #### [facility] [address] [place] [address] Dr. Andrey Hargrove UA PROTEIN TRACE Normal NEGATIVE/ TRACE [facility] Comment on above: Performed By: #### V ITSHAQ, FETIBC, FERR #### [facility] [address] [address] [address] Andrey Hargrove Urobilinogen Qn (U) 0.2 {Kelly'U}/dL Normal 0.2 - 1. 0 [facility] Comment on above: Performed By: #### V ITAD, FETIBC, FERR #### [facility] [address] [place] [address] Dr. Andrey Hargrove WBC 0-2 Abnormal NONE SEEN [facility] Comment on above: Performed By: #### V ITAD, FETIBC, FERR #### [facility] [address] [place] [address] Dr. Andrey Hargrove URIC ACID SERUMon 05-23-2022 Urate [Mass/Vol] 7.4 mg/dL Critically high 2.6-6.[address] [facility] Comment on above: Performed By: #### L IPID, TSH, FT3 #### [facility] [address] [place] [address] Dr. Andrey Hargrove URINE T PROTEIN CREAT RATIOo n 05-23-2022 Protein (U) [Mass/Vol] 39.9 mg/dL Critically high <=12.[address] [facility] Comment on above: Performed By: #### U RTPCR #### [facility] [address] [place] [address] Dr. Andrey Hargrove UR PROT CREAT RAT 0.64 Normal [facility] Comment on above: Performed By: #### U RTPCR #### [facility] [address] [place] [address] Dr. Andrey Hargrove URINE CREAT 62.30 mg/dL Normal 20.00-300.[address] [facility] Comment on above: Performed By: #### U RTPCR #### [facility] [address] [place] [address] Dr. Andrey Hargrove VITAMIN D 25 OHon 05-23-2022 VIT D 25-OH 90.7 ng/mL Normal [facility] Comment on above: Performed By: #### L IPID, TSH, FT3 #### [facility] [address] [place] [address] Dr. Andrey Hargrove VIT D RANGES SEE BELOW Normal [facility] Comment on above: Result Comment: <20 ng/mL Vit D deficient 20 - <30 ng/mL Vit D insufficient 30 - 100 ng/mL Vit D sufficient >100 ng/mL Potential Toxicity Performed By: #### L IPID, TSH, FT3 #### [facility] [address] [place] [address] Dr. Andrey Hargrove MAGNESIUMon 05-14-2022 Magnesium [Mass/Vol] 2.1 mg/dL Normal 1.8-2.[address] [facility] Comment on above: Performed By: #### L IPID, TSH, FT3 #### [facility] [address] [place] [address] Dr. Andrey Hargrove PROF CHEM 8 (BAS METB)on Anion gap [Moles/Vol] 12.0 mmol/L Normal [facility] Comment on above: Performed By: #### L IPID, TSH, FT3 #### [facility] [address] [address] [address] Andrey Hargrove Calcium [Mass/Vol] 9.0 mg/dL Normal 8.5-10.1 [facility] Comment on above: Performed By: #### L IPID, TSH, FT3 #### [facility] [address] [place] [address] Dr. Andrey Hargrove Chloride [Moles/Vol] 97 mmol/L Critically low 98-[address] [facility] Comment on above: Performed By: #### L IPID, TSH, FT3 #### [facility] [address] [place] [address] Dr. Andrey Hargrove CO2 [Moles/Vol] 30.4 mmol/L Normal 21.0-32.0 [facility] Comment on above: Performed By: #### L IPID, TSH, FT3 #### [facility] [address] [place] [address] Dr. Andrey Hargrove Creatinine [Mass/Vol] 2.28 mg/dL Critically high 0.55-1.[address] [facility] Comment on above: Performed By: #### L IPID, TSH, FT3 #### [facility] [address] [place] [address] Dr. Andrey Hargrove EGFR-AF MARTINIQUAIS 26 mL/min/1.73m2 Critically low >=[address] [facility] Comment on above: Performed By: #### L IPID, TSH, FT3 #### [facility] [address] [place] [address] Dr. Andrey Hargrove EGFR-NON AF MARTINIQUAIS 21 mL/min/1.73m2 Critically low >=[address] [facility] Comment on above: Performed By: #### L IPID, TSH, FT3 #### [facility] [address] [place] [address] Dr. Andrey Hargrove Glucose [Mass/Vol] 190 mg/dL Critically high 74-106 [facility] Comment on above: Performed By: #### L IPID, TSH, FT3 #### [facility] [address] [address] [address] Andrey Hargrove Potassium [Moles/Vol] 3.4 mmol/L Critically low 3.5-5.[address] [facility] Comment on above: Performed By: #### L IPID, TSH, FT3 #### [facility] [address] [address] [address] Andrey Hargrove Sodium [Moles/Vol] 136 mmol/L Normal 136-145 [facility] Comment on above: Performed By: #### L IPID, TSH, FT3 #### [facility] [address] [address] [address] Andrey Hargrove Urea nitrogen [Mass/Vol] 73.0 mg/dL Critically high 7.0-18.[address] [facility] Comment on above: Performed By: #### L IPID, TSH, FT3 #### [facility] [address] [address] [address] Andrey Hargrove Urea nitrogen/Creatinine [Mass ratio] 32.0 mg/mg Normal [facility] Comment on above: Performed By: #### L IPID, TSH, FT3 #### [facility] [address] [place] [address] Dr. Andrey Hargrove XR CHEST 2 Von [...] by: RENETTA RENEE Date: 2022-05-12 09:[address] [facility] BNPon 05-11-2022 Natriuretic peptide B (Bld) [Mass/Vol] 7074.0 pg/mL Critically high <=900.[address] [facility] Comment on above: Performed By: #### V ITAD, FETIBC, FERR #### [facility] [address] [place] [address] Dr. Andrey Hargrove CBC AUTO DIFFon 05-11-2022 BASO # 0.1 103/ul Normal 0.0-0.[address] [facility] Comment on above: Performed By: #### V ITAD, FETIBC, FERR #### [facility] [address] [place] [address] Dr. Andrey Hargrove Basophils/100 WBC (Bld) 0.7 % Normal 0.2-2.0 [facility] Comment on above: Performed By: #### V ITAD, FETIBC, FERR #### [facility] [address] [place] [address] Dr. Andrey Hargrove EO # 0.3 103/ul Normal 0.0-0.7 [facility] Comment on above: Performed By: #### V ITAD, FETIBC, FERR #### [facility] [address] [place] [address] Dr. Andrey Hargrove Eosinophils/100 WBC (Bld) 3.8 % Normal 0.9-7.0 [facility] Comment on above: Performed By: #### V ITAD, FETIBC, FERR #### [facility] [address] [place] [address] Dr. Andrey Hargrove Erythrocyte distribution width (RBC) [Ratio] 14.7 % Normal 11.0-15.0 [facility] Comment on above: Performed By: #### V ITAD, FETIBC, FERR #### [facility] [address] [place] [address] Dr. Andrey Hargrove Hematocrit (Bld) [Volume fraction] 29.6 % Critically low 36.0-48.0 [facility] Comment on above: Performed By: #### V ITAD, FETIBC, FERR #### [facility] [address] [place] [address] Dr. Andrey Hargrove Hemoglobin (Bld) [Mass/Vol] 9.9 g/dL Critically low 12.0-16.0 [facility] Comment on above: Performed By: #### V ITAD, FETIBC, FERR #### [facility] [address] [place] [address] Dr. Andrey Hargrove IG # 0.03 10e3/ul Normal 0.00-0.[address] [facility] Comment on above: Performed By: #### V ITAD, FETIBC, FERR #### [facility] [address] [place] [address] Dr. Andrey Hargrove IG % 0.4 % Normal 0.0-0.[address] [facility] Comment on above: Performed By: #### V ITAD, FETIBC, FERR #### [facility] [address] [place] [address] Dr. Andrey Hargrove LYMPH # 1.3 103/ul Normal 1.2-3.[address] [facility] Comment on above: Performed By: #### V ITAD, FETIBC, FERR #### [facility] [address] [place] [address] Dr. Andrey Hargrove Lymphocytes/100 WBC (Bld) 16.3 % Critically low 20.5-60.[address] [facility] Comment on above: Performed By: #### V ITAD, FETIBC, FERR #### Access [facility] [address] [place] [address] Dr. Andrey Hargrove MANUAL DIFF REQ NO Normal [facility] Comment on above: Performed By: #### V ITAD, FETIBC, FERR #### [facility] [address] [place] [address] Dr. Andrey Hargrove MCH (RBC) [Entitic mass] 28.7 pg Normal 26.7-34.[address] [facility] Comment on above: Performed By: #### V ITAD, FETIBC, FERR #### [facility] [address] [place] [address] Dr. Andrey Hargrove MCHC (RBC) [Mass/Vol] 33.4 g/dL Normal 29.9-35.[address] [facility] Comment on above: Performed By: #### V ITAD, FETIBC, FERR #### [facility] [address] [place] [address] Dr. Andrey Hargrove MCV (RBC) [Entitic vol] 85.8 fL Normal 81.0-99.0 [facility] Comment on above: Performed By: #### V ITAD, FETIBC, FERR #### [facility] [address] [place] [address] Dr. Andrey Hargrove MONO # 0.7 103/ul Normal 0.3-0.8 [facility] Comment on above: Performed By: #### V ITAD, FETIBC, FERR #### [facility] [address] [place] [address] Dr. Andrey Hargrove Monocytes/100 WBC (Bld) 8.7 % Normal 1.7-12.0 [facility] Comment on above: Performed By: #### V ITAD, FETIBC, FERR #### [facility] [address] [place] [address] Dr. Andrey Hargrove NEUT # 5.4 103/ul Normal 1.4-6.5 [facility] Comment on above: Performed By: #### V ITAD, FETIBC, FERR #### [facility] [address] [place] [address] Dr. Andrey Hargrove Neutrophils/100 WBC (Bld) 70.1 % Normal 43.0-75.0 [facility] Comment on above: Performed By: #### V ITAD, FETIBC, FERR #### [facility] [address] [place] [address] Dr. Andrey Hargrove Platelet mean volume (Bld) [Entitic vol] 10.9 fL Normal 9.5-13.5 [facility] Comment on above: Performed By: #### V ITAD, FETIBC, FERR #### [facility] [address] [place] [address] Dr. Andrey Hargrove PLT 171 103/ul Normal 150-450 [facility] Comment on above: Performed By: #### V ITAD, FETIBC, FERR #### [facility] [address] [place] [address] Dr. Andrey Hargrove RBC 3.45 106/ul Critically low 4.20-5.40 [facility] Comment on above: Performed By: #### V ITAD, FETIBC, FERR #### [facility] [address] [address] [address] Andrey Hargrove WBC 7.7 103/ul Normal 4.0-11.[address] [facility] Comment on above: Performed By: #### V ITAD, FETIBC, FERR #### [facility] [address] [place] [address] Dr. Andrey Hargrove PROF CHEM 8 (BAS METB)on Anion gap [Moles/Vol] 9.8 mmol/L Normal [facility] Comment on above: Performed By: #### V ITAD, FETIBC, FERR #### [facility] [address] [place] [address] Dr. Andrey Hargrove Calcium [Mass/Vol] 9.1 mg/dL Normal 8.5-10.1 [facility] Comment on above: Performed By: #### V ITAD, FETIBC, FERR #### [facility] [address] [place] [address] Dr. Andrey Hargrove Chloride [Moles/Vol] 96 mmol/L Critically low 98-[address] [facility] Comment on above: Performed By: #### V ITAD, FETIBC, FERR #### [facility] [address] [place] [address] Dr. Andrey Hargrove CO2 [Moles/Vol] 30.8 mmol/L Normal 21.0-32.0 [facility] Comment on above: Performed By: #### V ITAD, FETIBC, FERR #### [facility] [address] [place] [address] Dr. Andrey Hargrove Creatinine [Mass/Vol] 2.28 mg/dL Critically high 0.55-1.[address] [facility] Comment on above: Performed By: #### V ITAD, FETIBC, FERR #### [facility] [address] [place] [address] Dr. Andery Hargrove EGFR-AF MARTINIQUAIS 26 mL/min/1.73m2 Critically low >=[address] [facility] Comment on above: Performed By: #### V ITAD, FETIBC, FERR #### [facility] [address] [address] [address] Andrey Hargrove EGFR-NON AF MARTINIQUAIS 21 mL/min/1.73m2 Critically low >=[address] [facility] Comment on above: Performed By: #### V ITAD, FETIBC, FERR #### [facility] [address] [place] [address] Dr. Andrey Hargrove Glucose [Mass/Vol] 158 mg/dL Critically high 74-106 [facility] Comment on above: Performed By: #### V ITAD, FETIBC, FERR #### [facility] [address] [place] [address] Dr. Andrey Hargrove Potassium [Moles/Vol] 3.6 mmol/L Normal 3.5-5.[address] [facility] Comment on above: Performed By: #### V ITAD, FETIBC, FERR #### [facility] [address] [place] [address] Dr. Andrey Hargrove Sodium [Moles/Vol] 133 mmol/L Critically low 136-145 [facility] Comment on above: Performed By: #### V ITAD, FETIBC, FERR #### [facility] [address] [place] [address] Dr. Andrey Hargrove Urea nitrogen [Mass/Vol] 66.0 mg/dL Critically high 7.0-18.[address] [facility] Comment on above: Performed By: #### V ITAD, FETIBC, FERR #### [facility] [address] [place] [address] Dr. Andrey Hargrove Urea nitrogen/Creatinine [Mass ratio] 28.9 mg/mg Normal [facility] Comment on above: Performed By: #### V ITAD, FETIBC, FERR #### [facility] [address] [place] [address] Dr. Andrey Hargrove MAGNESIUMon 03-17-2022 Magnesium [Mass/Vol] 1.9 mg/dL Normal 1.8-2.[address] [facility] Comment on above: Performed By: #### V ITAD, FETIBC, FERR #### [facility] [address] [place] [address] Dr. Andrey Hargrove PROF CHEM 8 (BAS METB)on Anion gap [Moles/Vol] 11.7 mmol/L Normal [facility] Comment on above: Performed By: #### V ITAD, FETIBC, FERR #### [facility] [address] [place] [address] Dr. Andrey Hargrove Calcium [Mass/Vol] 9.4 mg/dL Normal 8.5-10.1 [facility] Comment on above: Performed By: #### V ITAD, FETIBC, FERR #### [facility] [address] [place] [address] Dr. Andrey Hargrove Chloride [Moles/Vol] 97 mmol/L Critically low 98-[address] [facility] Comment on above: Performed By: #### V ITAD, FETIBC, FERR #### [facility] [address] [place] [address] Dr. Andrey Hargrove CO2 [Moles/Vol] 29.0 mmol/L Normal 21.0-32.0 [facility] Comment on above: Performed By: #### V ITAD, FETIBC, FERR #### [facility] [address] [place] [address] Dr. Andrey Hargrove Creatinine [Mass/Vol] 2.02 mg/dL Critically high 0.55-1.[address] [facility] Comment on above: Performed By: #### V ITAD, FETIBC, FERR #### [facility] [address] [place] [address] Dr. Andrey Hargrove EGFR-AF MARTINIQUAIS 30 mL/min/1.73m2 Critically low >=[address] [facility] Comment on above: Performed By: #### V ITAD, FETIBC, FERR #### [facility] [address] [place] [address] Dr. Andrey Hargrove EGFR-NON AF MARTINIQUAIS 24 mL/min/1.73m2 Critically low >=[address] [facility] Comment on above: Performed By: #### V ITAD, FETIBC, FERR #### [facility] [address] [place] [address] Dr. Andrey Hargrove Glucose [Mass/Vol] 204 mg/dL Critically high 74-106 [facility] Comment on above: Performed By: #### V ITAD, FETIBC, FERR #### [facility] [address] [place] [address] Dr. Andrey Hargrove Potassium [Moles/Vol] 3.7 mmol/L Normal 3.5-5.[address] [facility] Comment on above: Performed By: #### V ITAD, FETIBC, FERR #### [facility] [address] [place] [address] Dr. Andrey Hargrove Sodium [Moles/Vol] 134 mmol/L Critically low 136-145 [facility] Comment on above: Performed By: #### V ITAD, FETIBC, FERR #### [facility] [address] [place] [address] Dr. Andrey Hargrove Urea nitrogen [Mass/Vol] 60.0 mg/dL Critically high 7.0-18.[address] [facility] Comment on above: Performed By: #### V ITAD, FETIBC, FERR #### [facility] [address] [place] [address] Dr. Andrey Hargrove Urea nitrogen/Creatinine [Mass ratio] 29.7 mg/mg Normal [facility] Comment on above: Performed By: #### V ITAD, FETIBC, FERR #### [facility] [address] [place] [address] Dr. Andrey Hargrove PTH INTACTon 01-18-2022 PTH, Intact 51 pg/mL Normal 15-[address] [facility] Comment on above: Performed By: #### L IPID, TSH, FT3 #### [facility] [address] [place] [address] Dr. Andrey Hargrove FERRITINon 01-17-2022 Ferritin [Mass/Vol] 133.0 ng/mL Normal 8.0-252.[address] [facility] Comment on above: Performed By: #### V ITAD, FETIBC, FERR #### [facility] [address] [place] [address] Dr. Andrey Hargrove HEMOGRAM AND PLATELon 2021 Hematocrit (Bld) [Volume fraction] 31.7 % Critically low 36.0-48.[address] [facility] Comment on above: Performed By: #### V ITAD, FETIBC, FERR #### [facility] [address] [place] [address] Dr. Andrey Hargrove Hemoglobin (Bld) [Mass/Vol] 10.2 g/dL Critically low 12.0-16.0 [facility] Comment on above: Performed By: #### V ITAD, FETIBC, FERR #### [facility] [address] [place] [address] Dr. Andrey Hargrove MCH (RBC) [Entitic mass] 28.3 pg Normal 26.7-34.0 [facility] Comment on above: Performed By: #### V ITAD, FETIBC, FERR #### [facility] [address] [place] [address] Dr. Andrey Hargrove MCHC (RBC) [Mass/Vol] 32.2 g/dL Normal 29.9-35.2 [facility] Comment on above: Performed By: #### V ITAD, FETIBC, FERR #### [facility] [address] [place] [address] Dr. Andrey Hargrove MCV (RBC) [Entitic vol] 88.1 fL Normal 81.0-99.0 [facility] Comment on above: Performed By: #### V ITAD, FETIBC, FERR #### [facility] [address] [place] [address] Dr. Andrey Hargrove PLT 198 103/ul Normal 150-450 [facility] Comment on above: Performed By: #### V ITAD, FETIBC, FERR #### [facility] [address] [place] [address] Dr. Andrey Hargrove RBC 3.60 106/ul Critically low 4.20-5.40 [facility] Comment on above: Performed By: #### V ITAD, FETIBC, FERR #### [facility] [address] [address] [address] Andrey Hargrove WBC 8.5 103/ul Normal 4.0-11.[address] [facility] Comment on above: Performed By: #### V ITAD, FETIBC, FERR #### [facility] [address] [address] [address] Andrey Hargrove IRON AND TIBCon 01-17-2022 % SATURATION 17.8 % Normal [facility] Comment on above: Performed By: #### V ITAD, FETIBC, FERR #### [facility] [address] [address] [address] Andrey Hargrove Iron [Mass/Vol] 47.0 ug/dL Critically low 50.0-170.0 [facility] Comment on above: Performed By: #### V ITAD, FETIBC, FERR #### [facility] [address] [place] [address] Dr. Andrey Hargrove TIBC DIRECT 264.0 ug/dL Normal 250.0-450.0 [facility] Comment on above: Performed By: #### V ITAD, FETIBC, FERR #### [facility] [address] [address] [address] Andrey Hargrove MAGNESIUMon 01-17-2022 Magnesium [Mass/Vol] 2.0 mg/dL Normal 1.8-2.[address] [facility] Comment on above: Performed By: #### V ITAD, FETIBC, FERR #### [facility] [address] [address] [address] Andrey Hargrove RENAL FUNCTION PANELon 01-17 Albumin [Mass/Vol] 3.3 g/dL Critically low 3.4-5.0 [facility] Comment on above: Performed By: #### V ITAD, FETIBC, FERR #### [facility] [address] [address] [address] Andrey Hargrove Calcium [Mass/Vol] 9.1 mg/dL Normal 8.5-10.1 [facility] Comment on above: Performed By: #### V ITAD, FETIBC, FERR #### [facility] [address] [place] [address] Dr. Andrey Hargrove Chloride [Moles/Vol] 104 mmol/L Normal 98-[address] [facility] Comment on above: Performed By: #### V ITAD, FETIBC, FERR #### [facility] [address] [place] [address] Dr. Andrey Hargrove CO2 [Moles/Vol] 27.6 mmol/L Normal 21.0-32.0 [facility] Comment on above: Performed By: #### V ITAD, FETIBC, FERR #### [facility] [address] [place] [address] Dr. Andrey Hargrove Creatinine [Mass/Vol] 1.71 mg/dL Critically high 0.55-1.[address] [facility] Comment on above: Performed By: #### V ITAD, FETIBC, FERR #### [facility] [address] [place] [address] Dr. Andrey Hargrove EGFR-AF MARTINIQUAIS 36 mL/min/1.73m2 Critically low >=[address] [facility] Comment on above: Performed By: #### V ITAD, FETIBC, FERR #### [facility] [address] [place] [address] Dr. Andrey Hargrove EGFR-NON AF MARTINIQUAIS 30 mL/min/1.73m2 Critically low >=[address] [facility] Comment on above: Performed By: #### V ITAD, FETIBC, FERR #### [facility] [address] [place] [address] Dr. Andrey Hargrove Glucose [Mass/Vol] 115 mg/dL Critically high 74-106 [facility] Comment on above: Performed By: #### V ITAD, FETIBC, FERR #### [facility] [address] [place] [address] Dr. Andrey Hargrove Phosphate [Mass/Vol] 4.3 mg/dL Normal 2.6-4.[address] [facility] Comment on above: Performed By: #### V ITAD, FETIBC, FERR #### [facility] [address] [place] [address] Dr. Andrey Hargrove Potassium [Moles/Vol] 3.9 mmol/L Normal 3.5-5.[address] [facility] Comment on above: Performed By: #### V CAPRICE FETIBC, FERR #### [facility] [address] [place] [address] Dr. Andrey Hargrove Sodium [Moles/Vol] 139 mmol/L Normal 136-145 [facility] Comment on above: Performed By: #### V JOSE VASQUESC, FERR #### [facility] [address] [place] [address] Dr. Andrey Hargrove Urea nitrogen [Mass/Vol] 38.0 mg/dL Critically high 7.0-18.[address] [facility] Comment on above: Performed By: #### V DANIA VASQUES, FERR #### [facility] [address] [place] [address] Dr. Andrey Hargrove UA RANDOM W/MICROSCOPICon BACTERIA NONE SEEN Normal NONE SEEN [facility] Comment on above: Performed By: #### L IPID, TSH, FT3 #### [facility] [address] [place] [address] Dr. Andrey Hargrove Bilirubin Ql (U) Negative Normal NEGATIVE [facility] Comment on above: Performed By: #### L IPID, TSH, FT3 #### [facility] [address] [place] [address] Dr. Andrey Hargrove CAST SEEN Abnormal NONE SEEN [facility] Comment on above: Performed By: #### L IPID, TSH, FT3 #### [facility] [address] [place] [address] Dr. Andrey Hargrove Clarity (U) CLEAR Normal CLEAR [facility] Comment on above: Performed By: #### L IPID, TSH, FT3 #### [facility] [address] [place] [address] Dr. Andrey Hargrove Color (U) LT. YELLOW Normal YELLOW [facility] Comment on above: Performed By: #### L IPID, TSH, FT3 #### [facility] [address] [place] [address] Dr. Andrey Hargrove Crystals LM Nom (Urine sed) NONE SEEN Normal NONE SEEN [facility] Comment on above: Performed By: #### L IPID, TSH, FT3 #### [facility] [address] [address] [address] Andrey Hargrove Epithelial cells LM Ql (Urine sed) FEW Abnormal NONE SEEN /RARE [facility] Comment on above: Performed By: #### L IPID, TSH, FT3 #### [facility] [address] [address] [address] Andrey Hargrove Glucose Ql (U) Negative Normal NEGATIVE [facility] Comment on above: Performed By: #### L IPID, TSH, FT3 #### [facility] [address] [address] [address] Andrey Hargrove Hemoglobin Ql (U) Negative Normal NEGATIVE [facility] Comment on above: Performed By: #### L IPID, TSH, FT3 #### [facility] [address] [place] [address] Dr. Andrey Hargrove HYALINE CAST RARE Normal [facility] Comment on above: Performed By: #### L IPID, TSH, FT3 #### [facility] [address] [address] [address] Andrey Hargrove Ketones Ql (U) Negative Normal NEGATIVE [facility] Comment on above: Performed By: #### L IPID, TSH, FT3 #### [facility] [address] [address] [address] Andrey Hargrove LEUKOCYTES TRACE Abnormal NEGATIVE [facility] Comment on above: Performed By: #### L IPID, TSH, FT3 #### [facility] [address] [address] [address] Andrey Hargrove MUCOUS NONE SEEN Normal NONE SEEN [facility] Comment on above: Performed By: #### L IPID, TSH, FT3 #### [facility] [address] [address] [address] Andrey Hargrove Nitrite Ql (U) Negative Normal NEGATIVE [facility] Comment on above: Performed By: #### L IPID, TSH, FT3 #### [facility] [address] [address] [address] Andrey Hargrove pH (U) 5.0 [pH] Normal 5-9 [facility] Comment on above: Performed By: #### L IPID, TSH, FT3 #### [facility] [address] [place] [address] Dr. Andrey Hargrove RBC 0-2 Normal 0-2 [facility] Comment on above: Performed By: #### L IPID, TSH, FT3 #### [facility] [address] [address] [address] Andrey Hargrove SPEC GRAVITY 1.020 Normal 1.005-<=1.[address] [facility] Comment on above: Performed By: #### L IPID, TSH, FT3 #### [facility] [address] [place] [address] Dr. Andrey Hargrove UA PROTEIN Negative Normal NEGATIVE/ TRACE [facility] Comment on above: Performed By: #### L IPID, TSH, FT3 #### [facility] [address] [place] [address] Dr. Andrey Hargrove Urobilinogen Qn (U) 0.2 {Kelly'U}/dL Normal 0.2 - 1. 0 [facility] Comment on above: Performed By: #### L IPID, TSH, FT3 #### [facility] [address] [place] [address] Dr. Andrey Hargrove WBC 2-5 Abnormal NONE SEEN [facility] Comment on above: Performed By: #### L IPID, TSH, FT3 #### [facility] [address] [place] [address] Dr. Andrey Hargrove URIC ACID SERUMon 01-17-2022 Urate [Mass/Vol] 5.4 mg/dL Normal 2.6-6.0 [facility] Comment on above: Performed By: #### V ITAD, FETIBC, FERR #### [facility] [address] [place] [address] Dr. Andrey Hargrove URINE T PROTEIN CREAT RATIOo n 01-17-2022 Protein (U) [Mass/Vol] 15.3 mg/dL Critically high <=12.[address] [facility] Comment on above: Performed By: #### V ITAD, FETIBC, FERR #### [facility] [address] [place] [address] Dr. Andrey Hargrove UR PROT CREAT RAT 0.36 Normal [facility] Comment on above: Performed By: #### V ITAD, FETIBC, FERR #### [facility] [address] [place] [address] Dr. Andrey Hargrove URINE CREAT 42.16 mg/dL Normal 20.00-300.[address] [facility] Comment on above: Performed By: #### V ITAD, FETIBC, FERR #### [facility] [address] [place] [address] Dr. Andrey Hargrove VITAMIN D 25 OHon 01-17-2022 VIT D 25-OH 73.8 ng/mL Normal [facility] Comment on above: Performed By: #### V ITAD, FETIBC, FERR #### [facility] [address] [place] [address] Dr. Andrey Hargrove VIT D RANGES SEE BELOW Normal [facility] Comment on above: Result Comment: <20 ng/mL Vit D deficient 20 - <30 ng/mL Vit D insufficient 30 - 100 ng/mL Vit D sufficient >100 ng/mL Potential Toxicity Performed By: #### V ITAD, FETIBC, FERR #### [facility] [address] [place] [address] Dr. Andrey Hargrove PROF CHEM 8 (BAS METB)on Anion gap [Moles/Vol] 13.3 mmol/L Normal [facility] Comment on above: Performed By: #### V ITAD, FETIBC, FERR #### [facility] [address] [place] [address] Dr. Andrey Hargrove Calcium [Mass/Vol] 9.5 mg/dL Normal 8.5-10.1 [facility] Comment on above: Performed By: #### V ITAD, FETIBC, FERR #### [facility] [address] [place] [address] Dr. Andrey Hargrove Chloride [Moles/Vol] 98 mmol/L Normal 98-[address] [facility] Comment on above: Performed By: #### V ITAD, FETIBC, FERR #### [facility] [address] [address] [address] Andrey Hargrove CO2 [Moles/Vol] 25.7 mmol/L Normal 21.0-32.0 [facility] Comment on above: Performed By: #### V ITAD, FETIBC, FERR #### [facility] [address] [place] [address] Dr. Andrey Hargrove Creatinine [Mass/Vol] 2.92 mg/dL Critically high 0.55-1.[address] [facility] Comment on above: Performed By: #### V ITAD, FETIBC, FERR #### [facility] [address] [place] [address] Dr. Andrey Hargrove EGFR-AF MARTINIQUAIS 19 mL/min/1.73m2 Critically low >=[address] [facility] Comment on above: Performed By: #### V ITAD, FETIBC, FERR #### [facility] [address] [place] [address] Dr. Andrey Hargrove EGFR-NON AF MARTINIQUAIS 16 mL/min/1.73m2 Critically low >=[address] [facility] Comment on above: Performed By: #### V ITAD, FETIBC, FERR #### [facility] [address] [place] [address] Dr. Andrey Hargrove Glucose [Mass/Vol] 156 mg/dL Critically high 74-106 [facility] Comment on above: Performed By: #### V ITAD, FETIBC, FERR #### [facility] [address] [place] [address] Dr. Andrey Hargrove Potassium [Moles/Vol] 5.0 mmol/L Normal 3.5-5.[address] [facility] Comment on above: Performed By: #### V ITAD, FETIBC, FERR #### [facility] [address] [place] [address] Dr. Andrey Hargrove Sodium [Moles/Vol] 132 mmol/L Critically low 136-145 [facility] Comment on above: Performed By: #### V ITAD, FETIBC, FERR #### [facility] [address] [address] [address] Andrey Hargrove Urea nitrogen [Mass/Vol] 77.0 mg/dL Critically high 7.0-18.[address] [facility] Comment on above: Result Comment: CALL ED TO FRANCIS FABIANA RMA Performed By: #### V ITAD, FETIBC, FERR #### [facility] [address] [address] [address] Andrey Hargrove Urea nitrogen/Creatinine [Mass ratio] 26.4 mg/mg Normal [facility] Comment on above: Performed By: #### V ITAD, FETIBC, FERR #### [facility] [address] [address] [address] Andrey Hargrove Cardiovascular Lab Reporton 12-10-2021 Cardiovascular Lab Report [facility] Patient Name: Sameer, [facility] MR #: [id number] Physician: Karthik Larson Department of [facility] Date: 12/09/2021 Division of Birthdate: 1950 Cardiology Room #: Adult Cardiovascular Services [place] [address] Cardiovascular Laboratory Report INDICATION: The patient is [...] signed informed consent. 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 The right neck area was prepped and draped in usual fashion. Micropuncture technique and ultrasound guidance were used for access in the right internal jugular vein. A 5-Malian x 11 cm sheath was placed. A 5-Malian Dumont catheter was used for right heart [...] Fish M.D. Date Trans: 12/09/2021 11:37 P/joey [id number] cc: John Perdomo D.O. [address] [place] [address] Normal [facility] CBC COMPLETE BLOOD COUNTon 0 12-09-2021 Erythrocyte distribution width (RBC) [Ratio] 13.6 % Normal 11.5-15.0 [facility] Comment on above: Performed By: #### 5 [id number] #### [facility] [address] [facility]. [address] Hematocrit (Bld) [Volume fraction] 35.6 % Low 36.0-45.0 [facility] Comment on above: Performed By: #### 5 0608 #### [facility] [address] [facility] [address] Hemoglobin (Bld) [Mass/Vol] 11.8 g/dL Low 12.0-15.0 [facility] Comment on above: Performed By: #### 5 0608 #### [facility] [address] MCH (RBC) [Entitic mass] 28.6 pg Normal 27.0-33.0 [facility] Comment on above: Performed By: #### 5 0608 #### [facility] [address] MCHC (RBC) [Mass/Vol] 33.1 g/dL Normal 32.0-35.0 [facility] Comment on above: Performed By: #### 5 0608 #### [facility] [address] MCV (RBC) [Entitic vol] 86.2 fL Normal 82.0-98.0 [facility] Comment on above: Performed By: #### 5 0608 #### [facility] [address] Nucleated RBC/100 WBC (Bld) [Ratio] 0 % Normal 0-0 [facility] Comment on above: Performed By: #### 5 0608 #### [facility] [address] [place] [address], [facility] PLAT CNT 240 10*3/uL Normal 150-400 [facility] Comment on above: Performed By: #### 5 0608 #### [facility] [address] [place] [address], [facility] RBC (Bld) [#/Vol] 4.13 10*6/uL Normal 3.80-5.00 [facility] Comment on above: Performed By: #### 5 0608 #### [facility] [address] [place] [address], [facility] WBC (Bld) [#/Vol] 14.13 10*3/uL High 4.00-10.60 [facility] Comment on above: Performed By: #### 5 0608 #### [facility] [address] [place] [address], [facility] Covid-19 PCR (CVDTB)on SARS-CoV-2 (COVID-19) RNA JAYASHREE+probe Ql (Unsp spec) Not detected Normal NOT DETECTED [facility] Comment on above: Result Comment: This test is not yet approved or cleared by the [place] FDA. When there are no FDA-approved or cleared tests available, and other criteria are met, FDA can make tests available under an emergency access mechanism called an Emergency Use Authorization (EUA). The EUA for this test is supported by the [employer] Collector of Health and Human Service's (HHS's) declaration [...] By: #### V DANIA VASQUES, FERR #### [facility] [address] [place] [address] Dr. Andrey Hargrove ECHOCARDIO M/2D COMPLETEon 0 12-06-2021 ECHOCARDIO M/2D COMPLETE Patient: CLAUDIA ESTRELLA Exam Date: 12/06/2021 : 1950 Gender:F Ordering : CARMINA ROSALES Admission #: [id number] Family : DR JOHN PERDOMO D.OSwati Order #: [id number] CLICK HERE TO VIEW EXAM ECHOCARDIOGRAM REPORT [...] Area(A4C): 14.80 cm2 Left Atrium Systolic Volume(A2C): 44185 mm3 Left Atrium Systolic Volume(A4C): 49582 mm3 Mitral Valve MV E to A [...] Fish M.D. on 12/06/2021 at 17:[address] [facility] BNPon 12-01-2021 Natriuretic peptide B (Bld) [Mass/Vol] 5127.0 pg/mL Critically high <=900.[address] [facility] Comment on above: Performed By: #### V ITAD, FETIBC, FERR #### [facility] [address] [place] [address] Dr. Andrey Hargrove PROF CHEM 8 (BAS METB)on Anion gap [Moles/Vol] 13.9 mmol/L Normal [facility] Comment on above: Performed By: #### V ITAD, FETIBC, FERR #### [facility] [address] [place] [address] Dr. Andrey Hargrove Calcium [Mass/Vol] 9.4 mg/dL Normal 8.5-10.1 [facility] Comment on above: Performed By: #### V ITAD, FETIBC, FERR #### [facility] [address] [address] [address] Andrey Hargrove Chloride [Moles/Vol] 99 mmol/L Normal 98-[address] [facility] Comment on above: Performed By: #### V ITAD, FETIBC, FERR #### [facility] [address] [address] [address] Andrey Hargrove CO2 [Moles/Vol] 28.4 mmol/L Normal 21.0-32.0 [facility] Comment on above: Performed By: #### V ITAD, FETIBC, FERR #### [facility] [address] [place] [address] Dr. Andrey Hargrove Creatinine [Mass/Vol] 2.11 mg/dL Critically high 0.55-1.[address] [facility] Comment on above: Performed By: #### V ITAD, FETIBC, FERR #### [facility] [address] [address] [address] Andrey Hargrove EGFR-AF MARTINIQUAIS 28 mL/min/1.73m2 Critically low >=[address] [facility] Comment on above: Performed By: #### V ITAD, FETIBC, FERR #### [facility] [address] [place] [address] Dr. Andrey Hargrove EGFR-NON AF MARTINIQUAIS 23 mL/min/1.73m2 Critically low >=[address] [facility] Comment on above: Performed By: #### V ITAD, FETIBC, FERR #### [facility] [address] [address] [address] Andrey Hargrove Glucose [Mass/Vol] 179 mg/dL Critically high 74-106 [facility] Comment on above: Performed By: #### V ITAD, FETIBC, FERR #### [facility] [address] [address] [address] Andrey Hargrove Potassium [Moles/Vol] 4.3 mmol/L Normal 3.5-5.[address] [facility] Comment on above: Performed By: #### V ITAD, FETIBC, FERR #### [facility] [address] [place] [address] Dr. Andrey Hargrove Sodium [Moles/Vol] 137 mmol/L Normal 136-145 [facility] Comment on above: Performed By: #### V ITAD, FETIBC, FERR #### [facility] [address] [place] [address] Dr. Andrey Hargrove Urea nitrogen [Mass/Vol] 62.0 mg/dL Critically high 7.0-18.[address] [facility] Comment on above: Performed By: #### V ITAD, FETIBC, FERR #### [facility] [address] [place] [address] Dr. Andrey Hargrove Urea nitrogen/Creatinine [Mass ratio] 29.4 mg/mg Normal [facility] Comment on above: Performed By: #### V ITAD, FETIBC, FERR #### [facility] [address] [place] [address] Dr. Andrey Hargrove BNPon 11-19-2021 Natriuretic peptide B (Bld) [Mass/Vol] 4773.0 pg/mL Critically high <=900.[address] [facility] Comment on above: Performed By: #### V ITAD, FETIBC, FERR #### [facility] [address] [place] [address] Dr. Andrey Hargrove PROF CHEM 8 (BAS METB)on Anion gap [Moles/Vol] 11.3 mmol/L Normal [facility] Comment on above: Performed By: #### V ITAD, FETIBC, FERR #### [facility] [address] [place] [address] Dr. Andrey Hargrove Calcium [Mass/Vol] 8.9 mg/dL Normal 8.5-10.1 [facility] Comment on above: Performed By: #### V ITAD, FETIBC, FERR #### [facility] [address] [place] [address] Dr. Andrey Hargrove Chloride [Moles/Vol] 100 mmol/L Normal 98-[address] [facility] Comment on above: Performed By: #### V ITAD, FETIBC, FERR #### [facility] [address] [address] [address] Andrey Hargrove CO2 [Moles/Vol] 30.9 mmol/L Normal 21.0-32.0 [facility] Comment on above: Performed By: #### V ITAD, FETIBC, FERR #### [facility] [address] [address] [address] Andrey Hargrove Creatinine [Mass/Vol] 2.01 mg/dL Critically high 0.55-1.[address] [facility] Comment on above: Performed By: #### V ITAD, FETIBC, FERR #### [facility] [address] [place] [address] Dr. Andrey Hargrove EGFR-AF MARTINIQUAIS 30 mL/min/1.73m2 Critically low >=60 [facility] Comment on above: Performed By: #### V ITAD, FETIBC, FERR #### [facility] [address] [place] [address] Dr. Andrey Hargrove EGFR-NON AF MARTINIQUAIS 24 mL/min/1.73m2 Critically low >=60 [facility] Comment on above: Performed By: #### V ITAD, FETIBC, FERR #### [facility] [address] [place] [address] Dr. Andrey Hargrove Glucose [Mass/Vol] 81 mg/dL Normal 74-106 [facility] Comment on above: Performed By: #### V ITAD, FETIBC, FERR #### [facility] [address] [place] [address] Dr. Andrey Hargrove Potassium [Moles/Vol] 3.2 mmol/L Critically low 3.5-5.1 [facility] Comment on above: Performed By: #### V ITAD, FETIBC, FERR #### [facility] [address] [place] [address] Dr. Andrey Hargrove Sodium [Moles/Vol] 139 mmol/L Normal 136-145 [facility] Comment on above: Performed By: #### V ITAD, FETIBC, FERR #### [facility] [address] [address] [address] Andrey Hargrove Urea nitrogen [Mass/Vol] 51.0 mg/dL Critically high 7.0-18.[address] [facility] Comment on above: Performed By: #### V ITAD, FETIBC, FERR #### [facility] [address] [address] [address] Andrey Hargrove Urea nitrogen/Creatinine [Mass ratio] 25.4 mg/mg Normal [facility] Comment on above: Performed By: #### V ITAD, FETIBC, FERR #### [facility] [address] [address] [address] Andrey Hargrove COVID-19 Antigenon 2 COVID-19 [...] its performance Kenny Disclaimer characteristic determined by [employer] and Kenny Disclaimer validated at [facility]. This Kenny Disclaimer test has not been [...] is terminated or revoked sooner. PERFORMED BY: [place] [address] PATHOLOGIST STATION REPAIRER JAMAL ALLEN M.D. [facility] Comment on above: Performed By: #### S OFIAPOS, COVID-19 KENNY #### [id number] [facility] Kenny Ag Positiveon 07-31-19 22 Kenny Ag Positive Positive Critically abnormal Negative [facility] Comment on above: Result Comment: This is a duplicate Kenny SARS Antigen (JOSE RAMON) result to be used for statistical tracking purpose only. PERFORMED BY: [place] [address] PATHOLOGIST STATION REPAIRER JAMAL ALLEN M.D. Performed By: #### S OFIAPOS, COVID-19 KENNY #### [id number] [facility] Coding Summary.on 12-22-2020 Coding Summary. CD:[id number] G h0bWw+PGhlYWQ+UN6MCSR dU59gnTXwsP3TX6bZXG0Y ULEBMUDIEX2CGW5mmWJ6W ZglE3OvwjKg AkbrkHUuZL98VLy5CWN3g PbdEAdsjH9iuOBsB0z1Bl OrVW06wW12HKdgCVWoPvB 3LjZpbjsgbWFy W9mgJvUnnDOiIhh+PHRhY mxlIHdpZHRoPScxMDAlJy FkoIecHH3yBe6aMVKcAIJ vbGxhcHNlOiBj y0yrUOHxXCwhUE3hbRjbC 8XfaRE1EYXfz4j9Vl60sK I+KJFxGJU6fCytDXopj31 3HqVak1cgVOU2 vQPgSWhvGXK7D52qr1Z3Z JXwEBQjUCQ9mSD9nZ6cyS vthbuhL2ZcoBGpUbZ3EYE 3pCPzpZ1qrLhg lqzamA7cWuo+L69TEF3EP TRLVD3XMan0D3QfUjogsU I+SR49STIxYN27wISzqVK ot1papUm0BxVy JBNtBRO3oDosDLxmd2MqD BFdS09tpIFtv8O6FPCxaT lujJCdObIdlDZ7gL2yNKo oxnewv7gidmnm Lkdtr0ssrg44zY09W02wR MsrWQXiRKW3RFIyCAScuL uwqe4upX3pXq3+WJtoj6f qf9ypfAr4ZoHa KIAtapCxpQmeAXA0y2HuT t03A2PghXunz6RjTcm5yv 34mHBka6R3dYV3DSqoBOC ewK6kBIkyEqQ8 CSJoGqAbiN53mKVpDIyfL m0mqIwkiObfVX7dBUMprf jfAOPefU0cUICpvIAldVu cOK2xQUMmdkwa d906ZxFwSPI9DOKhfYAdP 1MmiV6rMkFsCHNgUIFwE6 SmnNZjHIerR700NBjyDeZ 6GMDhytDaY9Ru VTWqpXzzGoG4e4Y5Nk6Iz 0RmwtndKKD4ZLdvJKJ3Uw NbTlGfLrD0C8FnJcr3LZY dkBpyZI7pD1Qj ZDGqhtnnkdryzEY1IEMyD MYepE46jRVvRKpuYh3ur6 F4i657DPNpNBUmlQ81Da8 udDogMTBwdCBU oJ0ycnwym4cffqfeFwJmJ HHuKPl9DUh2YNPnxKfpAz YmTWW0OwC0ZYB7mBCouL3 cpRijecmmaH9s Oyc+S28jfJ4rWVM1QRW1y lpaZVBsvdFfUM17OQ43P8 RyPjwvdGFibGU+PGRpdiB cqGasYA1gOnEz g2zlf1IhFXjtX2FyJSXpV SisNmr6AWKcFGX9mSK7gB 4kDLFgCHtax4R2gGB0S1F fhkDjxb3am9we RBMcERtiC43eyUYel6U2S HCxuID1OUDcyIgyKqKddW 93Oyc+WXZwgGhnc9BnCsm nx5pls1vfxJw1 CgFfFLRyicNdcUwdKHK6u 8CdHr38D43pOPygAYRmYQ AmVUAeAAXcfWgshj3szP2 wIi8+PGNvbCB3 bZQ1mN1qYTVqYjY0WSrjM 157VjCpfMVzJhswe2ykh8 dquRt6XgHfTVFrhcJvnZo lFVR7l4QmEr95 B00zKOmrVONaWTHnKKWyI QBkrRxyda8aeB2tYa5+PC 9ho4zvwy31gC70jGC+PHR yFDR5xXaxCMtd QZXxcP6oEIabQjT7LGLdP iLfwV88xOUpYWwaZk4elR aqfMneVM8eGMInzvzzu15 6KnOcr9yeAHRn mGGbOVjyNVY8E67bz3V7Y CWdOUFnELX0uFZ9vF0rjX lnbjogbGVmdDsgdmVydGl oBTouPFkwU325 IHRvcDsnPlBhdGllbnQgT oXcWTz0U6VgBqa0ONBpnI ubJB7piGJgOHtdMm9leWv clZdaNH7dMVJs ubxgj558XcBxg1xcYMBnw BOeIIunMQP7Q55ra5K8CD JdBMVqKHV4eJD5jG9diWr nbjogbGVmdDsg qpNfxFmnGLjfSBotD263T HRvcDsnPkJpcnRoIERhdG Y8KP70WV78vGJpi0X7hST 9I5FlCMZwtfij ngzzhFP9ATUsCRAafP79S t2bkXdxTc8wGMYqPQC3TA JpcTXsG3FivQ3nZzTeLAW rHOVuD3BvfWDl UTnhJ766TPnfZlB5WGAke rJhV9TySOGhwRlrRkV4t7 N1Tt4HA9F6LE21SH16aAQ ax8D3rGB9M7No GHDecofvhezhtOI1RGJuF JExhS44Jg1bwWgaXx3oCM FwBKZ1QHLrqRRdK7CzgZ3 yOiAjMDAwMDAw E9TcjRFfNAlrY639XFjyI aF9FMNxjhTdX1CfWNPguY obKdZ0g4F9Dk7EGIq6GM9 3FB33cOKwr9E5 dBA9Y2JfZAIjsrmabgkaf LB6SSDzBPQqbO84Eu7zoZ wvQd2xFMMePOS0SBUrsQV mL9GjmJ4sUuSr KXZhBGUfW6WeeITyLXidV 007NTeoVpY3GCDxqrXcZ8 AoZAQzrTgeQcM6y8X8Ha3 NNXYpER12XWJ1 cHB6YJ81QP71H2SwWlmal GFibGU+PHRhYmxlIHdpZH RoPScxMDAlJyBzdHlsZT0 gGr0mVWPnFPGy bMwzaHUtLiAkt4xsEASsY HejRH6rsQulD3SizKV5ZQ Zlv0a5Mo47P64pG0UzlYX +ZRNytEU0vUZ6 fU2aMyGnHtP4GMczB831D wVmgFLnOlprh4evi6zyeO e8XkP1EONcxhBnhAidROK 3p0LtRr83G47t IHdpZHRoPSIxNSUiIHZhb Anuyw6gkS1bXx6+PGNvbC C1lWI3nX9eWiDvPxT9YLx lH030TrKxpIZo Xxwdz7iua6hdbHr2GdJzQ MOjepVpqRhnIPW9l3XmTo 85J5WoxPfjj6OlHtl1hy7 0sDEms3U6rPI6 P2AvELMlidyanFCmyEdpK W8kRSGygvbdDCFamT5yFO XlO5h0VxNrErI7NColM3W xbmY2WPUbwBKl OTcjEHC1K31ol8T7ZQMgF FWuIIT9gXW8yH1lhQgmvy ogbGVmdDsgdmVydGljYWw pXMpxM182BOZq wZobBPEbrB1wXUNpwTBzf PdcHO0sYPQazsxoNe1XR7 LGVhacF2xIWe4ZDDR3P4G pInj9BJCzxQnz IO7sqKJjRKrcHs0ulBmga CqrQU0lZKQaixxqRZUgkY 2wGHWduULpiRvnRO7zMMN rjbwuh527UxAh ZGI2BOIqmOKwR1GemH7rE jEfPSRfCBViW9VftIJoZJ imE800FSgoJsB8BJPyhdL lX4DvKYZkjPib ItL6s7U7Sr3eOC4nBl9dY KYnRU95RT07zADzg5T4yU I5N0JmSNUqnkbhrccxiSC 1NJNcJITndH26 dJIcSOmmVt4cr1E1l266C XNrRABgwU95Ks6vxDztPZ TokDVXwL0zdbgru9ccxmj gIzAwMDAwMDt0 PAc1NNLamQqyOmIdQBZ9E sJ3NCS3kCZwzA2yzXsfmt xdqB0xCdc+NjkgWWVhcnM 8G8XqFdc3RBMi yUiwDN6zdFHrDGxlZd6po XjdeGvoZP1nVJCbiqnzST TleG9lWAJnsSCnqFexVJ9 zVQOkixvgc167 SdEuXBI4KLYkvVUjA7Bnv Z6xOdAoWVXxJJLcZ7FzqB MbXFnfG136PQtzXnW8DQZ qgnOiE4KbVOOo uRkwMrO5o5T7Wc6KNW4zm DA3W0IlKbj0ZSSbnQnhRQ 6uuPRkRSmcOv1rlGyhnIe eXL5sTHAdbggy ZKOhbQ9rQCAtfCCxnNjjF V0dUFYanbbzg690KgFfKZ K5XJZigNHxU8LsoA7rDuY rVFMyGJIdZ6Ox hFNtVIxnN112ZQjmQzU5N IZgfsWbU1JfQRFlzQymZb K9i7V9Ox4JDMKuEPVjhSY dCuF7T0MkZupe dHI+XY68PVPaQW79eBKfp LHoc4sbdQm2LyKbHKVuXW H9xSytIPuhn2SpZRQvE88 xiSSti2M7MLBm vDddnLQmLkHjeHI3cR2qO Yrhobbfy2obqpguOavpe8 efky95cF68A64aXFzzFZX oPSIzMCUiIHZh vUlrfa2ahR7sBw4+PGNvb FB1vSH6oZ2kPtIfSfP9UR ywW840DuDsnUCvBksvv2x dw9uyvAy0CaMy NIUpooQlkTxwUZN5v2KaC h87C20cCYntUOZgWVSnFC LvJXHxeQdqde0ojR9fJr9 +UK7lf6kozl68 kN53dCQ+CBDrOXX7tRduH YgiGMTngB2uZLjoIiP4WI QkXyPirM82lPSjWEhcQp6 vlCkaeAgvYA3t ULSkddrwr767ZpEwf3gzU JOmyUUgEIneDXK7U27hl7 K9PVYpCEVuGFJ4zML4fQ7 hbGlnbjogbGVm dDsgdmVydGljYWwtYWxpZ 989NZDxcAxvYoNibNLmQ8 vtixGHDT9nPfdnuQL+PHR qRIZ6mGhkGIir EKOhtQ9vUBWkA9q4NePyU cE2CLunQ8BwevU4QABewX UyYZUewCDZhS2pghvgy6f vcjogIzAwMDAw IMj9UYm9IRHomBidXmWgF LK6WoU8YNA1sRJhzF3rkO jnhfqjmG9gZxa+RklOOjw vdGQ+PHRkIHN0 jMdpSKtzJBYwiJ4qPOAaC 9m4ZsXdUkX3ZJhoF4Zyjv A4WGQyyDJpFOXdgZVFfN3 kqshxy7tanosw GrFiVKNcDJc0TNc2RTSus PwwXeAgTRD8FsQ3SFB2dB WurK1xfCpsoiisfE6bEsh +TVJOOjwvdGQ+ VLKoVQY4pUadUFdlLYXue W2fUGRyP3o5HrHbHpA0RE hlE9DeidT9RSKiuDMfXZO ccIZMiE6vkfzg f4hreqzwMaAvWTRlRFr1N Dg6BDYbeYayPdBuCPS1Vq T7OHT9gMIamS2ihLpmlmt ezS0mPrb+UGF5 NKP1GJ24HQ54Y2QjBbrwr GFibGU+PHRhYmxlIHdpZH RoPScxMDAlJyBzdHlsZT0 tWe7mNRSgZIMa bGxh (more content not included)... Normal [facility] Consent for Procedure/Surger yon 12-16-2020 Consent for Procedure/Surgery [id number] #1.00CD:127 [facility] Formson 12-16-2020 Forms [id number]#1. 00CD:127 [facility] Lab Reportson 12-16-2020 Lab Reports [id number]#1. 00CD:127 [facility] Physician Referralon 021 Physician Referral [id number]#1 .00CD:127 [facility] RAD - MISCon 12-16-2020 RAD - MISC [id number] #1.00CD:127 [facility] RAD - Ultrasound Reporton RAD - Ultrasound Report [id number]#1 .00CD:127 [facility] Ambulatory Clinical Summaryo n 12-15-2020 Ambulatory Clinical Summary {[id number] -[id number]}CD:[id number] [facility] Patient Educationon 12-16-19 Patient Education Urology [...] these instructions at home: Medicines ? Take vwxc-baz-rnyewwj and prescription medicines only as told by [...] the blood stops without treatment. ? Take ibfg-raa-spmcdue and prescription medicines only as told by your health care provider. ? Drink enough fluid to keep your urine clear or pale yellow. This information is not intended to replace advice given to you by your health care provider. Make sure you discuss any questions you have with your health care provider. Document Released: 06/19/2006 Document Revised: 11/13/2019 Document Reviewed: 07/22/2017 [employer] Patient Education ? 2019 [email or web address]. [facility] Urology Office/Clinic Noteon 12-15-2020 Urology Office/Clinic [...] The Urethra was dilated to: _18- 30 Malian with sounds. Specimens Removed: None Removal: Cystoscope [...] [facility] [address], [place] [address] [phone] Additional Instructions: f/u PRN Patient Education Hematuria, Adult Hortencia, Donna Hartley, personally scribed for Dr. Kwon on 12/15/2020 15:55:59. . Documentation recorded by the scribjessee conklin, accurately reflects the services(s) I performed and [...] 50,000 intl units (1.25 mg) oral capsule, 92228 International_Unit= 1 cap(s), Monday Zioptan 0.0015% ophthalmic solution Allergies erythromycin (Anaphylactic reaction) penicillin (Hives) Social History Alco (more content not included)... Normal [facility] Comment on above: Result Comment: Elec tronically Signed By: CHER VIGIL, Marcos Gutierrez.rashmi\Date and Time Signed: 12/15/20 15:58 EDT\.br\Electronically Co-Signed By: Donna Hartley\.rashmi\Date and Time Co-Signed: 12/15/20 15:56 EDT Reminderson 12-14-2020 Reminders - From: Augusta Singh To: EU - Clinical; Sent: 12/11/2020 13:29:41 EDT Show up: 12/14/2020 13:29:00 EDT Subject: Urine culture Reminder/Recall Urine Culture PRW reviewed positive culture. [facility] C Urineon 12-13-2020 Bacteria identified Cx [...] Locations R1: This test was performed at: [facility], [address] [place] [address], [facility]- , , [facility] Comment on above: Performed By: #### 2 [id number] ####[place] [address] Ambulatory Clinical Summaryo n 12-11-2020 Ambulatory Clinical Summary {[id number] -[id number]}CD:[id number] Normal [facility] Ambulatory Clinical Summary {[id number] -[id number]}CD:[id number] Normal [facility] Ambulatory Clinical Summary {[id number] -b8-cc}CD:[id number] Normal [facility] Patient Educationon 12-12-19 21 Patient Education Urology Hematuria, Adult Hematuria [...] these instructions at home: Medicines ? Take tcuk-dgs-ssstnff and prescription medicines only as told by [...] the blood stops without treatment. ? Take jvdp-hbn-aclwmoy and prescription medicines only as told by your health care provider. ? Drink enough fluid to keep your urine clear or pale yellow. This information is not intended to replace advice given to you by your health care provider. Make sure you discuss any questions you have with your health care provider. Document Released: 06/19/2006 Document Revised: 11/13/2019 Document Reviewed: 07/22/2017 [employer] Patient Education ? 2019 [email or web address]. 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 Jenkins due to Hematuria. Pt states that since the End of October she has been feeling a slight squeeze, no pain associated with this. Pt had a Renal US done at [facility]. Pt states that she has a Kidney [...] VIGIL, Marcos Abreu, URL [address] [place] [address]- [phone] Additional Instructions: Patient Education Hematuria, Adult I, [...] Tab amLOD (more content not included)... Normal [facility] Comment on above: Result Comment: Elec tronically Signed By: Marcos KWON MD\.br\Date and Time Signed: 12/11/20 11:17 EDT\.br\Electronically Co-Signed By: Regla Pyle MA\.br\Date and Time Co-Signed: 12/11/20 11:12 EDT Lab Reportson 11-16-2020 Lab Reports [id number]#1 .00CD:127 Normal [facility] Lab Reports [id number]#1 .00CD:127 Normal [facility] RAD - Ultrasound Reporton RAD - Ultrasound Report [id number] .00CD:127 Normal [facility] IntraOperative Documentson 07-12-2019 IntraOperative Documents [id number]# 1.00CD:127 [facility] Message from Medicareon Message from Medicare [id number]#1.0 0CD:127 [facility] Coding Summary.on 05-06-2020 Coding Summary. CODING DATE: 05/06/2020 FINAL [facility] STATUS: Home (Routine DC) PAYOR: [...] PROC APC STAT DESCRIPTION DOCTOR NAME DATE 75126 3591 J1 Arthroscopy, Vinita han DO, Michael T 05/01/2020 surgical; with meniscectomy (medial OR lateral, including any meniscal shaving) including debridement/shaving of articular cartilage (chondroplasty), same or separate compartment(s), when performed LT Left side (used to identify procedures performed on the left side of the body) 13448 Anesthesia for open or Gurmeet Aldridge Jr, [...] Bowers Revised Date Saved: 05/06/2020 11:55 am [facility] Insurance Correspondence Off iceon 05-05-2020 Insurance Correspondence Office [id number]# 1.00CD:127 Normal [facility] Main OR Intraoperative Recor don 05-05-2020 Main OR Intraoperative Record IntraOp Document Type FT Summary Primary Physician: David Talamantes DO Finalized Date/Time: 05/05/20 14:09:46 Pt. Name: CLAUDIA ESTRELLA Katerin Olivas./Sex: 1950 Female Med Rec #: [id number] Physician: David Talamantes DO Financial #: [id number] Pt. Type: O Room/Bed: [place] [address] Admit/Disch: 05/01/20 11:43:14 - 05/04/20 12:35:00 Institution: [...] Role Performed Anesthesiologist of Surgeon - Primary Union Organizer - Primary Record Time In 05/01/20 14:26:00 05/01/20 14:39:00 05/01/20 14:26:00 Time Out 05/01/20 15:04:00 05/01/20 15:04:00 05/01/20 15:04:00 Procedure KNEE ARTHROSCOPY(Left) KNEE ARTHROSCOPY(Left) KNEE ARTHROSCOPY(Left) Comments Last Modified By: Edgar RN, Viky Hernández RN, Viky Hernández RN, Viky Mcdonough 05/01/20 15:04:35 05/01/20 15:04:35 05/01/20 15:04:35 Entry 4 Entry 5 Entry 6 Case Attendee Maxim WU, Augusta Castro CST, Leatha Flowers RN, CNOR, Cee Role Performed Union Organizer - Primary Scrub - Primary Union Organizer - Relief Time In 05/01/20 14:26:00 05/01/20 [...] and tissue Entry 1 Skin Integrity Intact, [place], Warm, and Skin Abnormality No Dry Outcomes Met? Yes Last Modified By: Viky Hernández RN 05/01/20 14:46:48 Post-Care Text: The patient is free from signs and symptoms of injury caused by extraneous objects Patient Positioning FT Pre-Care Text: Identifies physical alterations that require additional precautions for procedure-specific positioning, verifies presence of prosthetics or corrective (more content not included)... Normal [facility] Progress Note-Physicianon Progress Note-Physician Patient: CLAUDIA ESTRELLA Age: 70 years Sex: Female : 1950 Associated Diagnoses: None Author: Gurmeet Aldridge Jr, DO Postoperative Information Post Operative Note: Post Anesthesia Care Unit. Anesthetic utilized: General. Health Status Allergies: Allergic Reactions (Selected) Severity Not Documented Erythromycin- Anaphylactic reaction. Penicillin- Hives. Problem list: All Problems DM kidney disease / SNOMED CT 300047320 / Confirmed PVD (peripheral vascular disease) / SNOMED CT 5988207043 / Confirmed MMT (medial meniscus tear) / SNOMED CT 914539266 / Confirmed Resolved: Ocular herpes zoster / SNOMED CT 921763809 Resolved: HTN (hypertension) / SNOMED CT 0138827102 Canceled: Diabetes / SNOMED CT 810525976 Physical Examination Vital Signs 05/01/2020 16:58 EDT [...] nausea and vomiting. Pt c/o CP substernal 5/10 after dilaudid . EKG obtained SR. Pain relieved with Sublingual NTG. Spoke with hospitalist he will admit also ordered stat serial troponin levels. will F/U Plan Transfer/ Discharge: Condition stable. Normal [facility] Comment on above: Result Comment: Elec [...] volume (mL): 1,000, 68.3 kg, 1.64, m2 [place] 5/325 Tab: 1 tab(s), Tab, Oral, q4hr [...] date 04/28/20 18:05:00 EDT Documented Medications Documented Mike GarciasikPen: 15 unit(s), SubCutaneous, TID, High blood sugar [...] Problems DM kidney disease / SNOMED CT 732391664 / Confirmed PVD (peripheral vascular disease) / SNOMED CT 4792009130 / Confirmed MMT (medial meniscus tear) / SNOMED CT 001091550 / Confirmed Resolved: Ocular herpes zoster / SNOMED CT 062713612 Resolved: HTN (hypertension) / SNOMED CT 0498812078 Canceled: Diabetes / SNOMED CT 992829435 Histories Past Medical History: No active or resolved past medical history items have been selected or recorded. Family History: No family history items have been selected or recorded. Procedure history: Right eye cataract extraction and insertion of intraocular lens (6160575119) on 11/19/2019 at 69 Years. Cataract extraction and insertion of intraocular lens (6182475022) on 11/06/2019 at 69 Years. Comments: 11/06/2019 14:13 EDT - Fabian WU, Loreto Abreu Left Appendectomy ([id number]). section x2 (24431284). Cholecystectomy (08828909). Anesthesia for laparoscopic procedure on lower abdomen (71398443). Cheilectomy of tarsal foot (1970381150). Social History Social & Psychosocial Habits Alcohol [...] results Radiology results ECG interpretation Condition Plan [place] [employer] (ASA) physical status classification: Class III. Anesthetic Preoperative (more content not included)... Normal [facility] Comment on above: Result Comment: Elec tronically Signed By: Gurmeet Aldridge Jr, DO\.br\Date and Time Signed: 05/05/20 08:22 EST Capillary Glucose POCon 11-0 Glucose [Mass/Vol] 127 mg/dL High 55-99 [facility] Comment on above: Result Comment: Monty MEDEIROS Performed By: #### 2 [id number] #### [facility] [address] [place] [address] Glucose [Mass/Vol] 149 mg/dL High 55-99 [facility] Comment on above: Result Comment: Mnoty MEDEIROS Performed By: #### 2 [id number] #### [facility] [address] [place] [address] Consent for Anesthesiaon Consent for Anesthesia [id number]#1 .00CD:127 Normal [facility] Discharge Instructionson Discharge Instructions [id number]# 1.00CD:127 Normal [facility] Inpatient Clinical Summaryon 05-04-2020 Inpatient Clinical Summary [address] [address] Clinical Summary Person Information: Name: CLAUDIA ESTRELLA Age: 70 Years : 1950 Sex: Female PCP: JOHN PERDOMO DO Marital Status: Race: White Ethnicity: Non- or Language: Azeri Visit Id: Visit Reason: LEFT KNEE BONE BRUISE, MEDIAL MENISCUS TEAR, EFFUSION Speciality: Acuity: Enc Type: Observation Med Service: Surgery Arrival: 05/01/2020 11:43:14 Discharge: Dispo Type: Address: [address] [place] [address] Provider Notes: Diagnosis: 1:Other chest pain; 2:Hypertension; [...] up: With: Address: When: Follow up with Line Up Machine Operator Within 1 week With: Address: When: JOHN PERDOMO [address] [place] [address] Business (1) With: Address: When: David Talamantes [address] [place] [address] Business (1) Comments: Keep scheduled appointment Patient Education Information: Post Op Patient Instructions - FT (Custom); Knee Cryocuff Patient Instructions - FT (Custom); Talamantes - Knee Arthroscopy (Custom) (CUSTOM) Normal [facility] Inpatient Patient Summaryon 05-04-2020 Inpatient Patient Summary [address] [address] Patient Discharge Instructions PERSON INFORMATION [...] up: With: Address: When: Follow up with Line Up Machine Operator Within 1 week With: Address: When: JOHN PERDOMO [facility] [place] [address] Business (1) With: Address: When: David Talamantes [address] [place] [address] Business (1) Comments: Keep scheduled appointment [...] STAY New Medications [id number], [address], [place] [id number], [phone] atorvastatin (Lipitor 20 mg Tab) 1 Tablets [...] amlodipine (amLO (more content not included)... Normal [facility] Interdisciplinary Note - PTo n 05-04-2020 Interdisciplinary Note - PT PT Screen performed. Pt was able to stand and ambulate throughout room without difficulty and without an AD. Pt also demos appropriate ROM to knee. Would recommend to f/u with Ortho to determine if therapy is needed in the future, but no PT needed at this time [facility] IntraOperative Documentson 1 07-04-2019 IntraOperative Documents [id number]#1 .00CD:127 [facility] IntraOperative Documents [id number]#1 .00CD:127 [facility] Message from Medicareon 11-0 Message from Medicare [id number]# 1.00CD:127 [facility] Monitor Recordon 05-04-2020 Monitor Record [id number]# 1.00CD:127 [facility] Monitor Record [id number]# 1.00CD:127 [facility] Monitor Record [id number]# 1.00CD:127 [facility] Patient Education - Texton 1 07-04-2019 Patient Education - Text [place], [place] [facility] DISCHARGE INSTRUCTIONS: KNEE ARTHROSCOPY [...] your appointment. David Talamantes, DO [facility] [address] [place] [address] [phone] Reviewed: 10-08 [facility] Preoperative Documentson Preoperative Documents [id number]#1 .00CD:127 Normal [facility] Preoperative Documents [id number]#1 .00CD:127 Normal [facility] Prescriptions/Work Noteson 1 07-04-2019 Prescriptions/Work Notes [id number]#1 .00CD:127 Normal [facility] Capillary Glucose POCon 11-0 Glucose [Mass/Vol] 59 mg/dL Normal 55-99 [facility] Comment on above: Result Comment: Monty MEDEIROS Performed By: #### 2 [id number] #### [facility] [address] [place] [address] Glucose [Mass/Vol] 85 mg/dL Normal 55-99 [facility] Comment on above: Result Comment: Monty MEDEIROS Performed By: #### 2 [id number] #### [facility] [address] [place] [address] Glucose [Mass/Vol] 112 mg/dL High 55-99 [facility] Comment on above: Performed By: #### 2 [id number] #### [facility] [address] [place] [address] Glucose [Mass/Vol] 113 mg/dL High 55-99 [facility] Comment on above: Result Comment: Monty MEDEIROS Performed By: #### 2 [id number] ####[facility] [address] [place] [address] Glucose [Mass/Vol] 155 mg/dL High 55-99 [facility] Comment on above: Performed By: #### 2 [id number] #### [facility] [address] [place] [address] Glucose [Mass/Vol] 183 mg/dL High 55-99 [facility] Comment on above: Performed By: #### 2 [id number] #### [facility] [address] [place] [address] Consultation Noteon 05-03-20 Consultation Note HOSPITAL REGULATIONS [...] left knee and elevate. Eh Carter DO [facility] Dictated: 05/02/2020 #[id number] Typed: 05/02/2020 #[id number] cc: DO David Nieto D.O. [facility] Comment on above: Result Comment: Elec tronically Signed By: Eh Carter DO\.br\Date and Time Signed: 05/03/20 10:27 EST Monitor Recordon 05-03-2020 Monitor Record [id number]# 1.00CD:127 Normal [facility] Monitor Record [id number]# 1.00CD:127 Normal [facility] Operative Reporton 0 Operative Report Date of Surgery: 05/01/2020 SURGEON: David Talamantes D.O. PREOPERATIVE DIAGNOSIS: Left knee medial meniscal tear with underlying osteoarthritis POSTOPERATIVE DIAGNOSIS: Left knee medial meniscal tear with underlying osteoarthritis OPERATION: Left knee arthroscopy with tricompartmental chondroplasty for all three compartments with partial medial meniscectomy ANESTHESIA: General ANESTHESIOLOGIST: Gurmeet Aldridge Jr., D.OSwati TOURNIQUET TIME: See nurse's notes, 300 mmHg [...] The patient's condition satisfactory David Talamantes D.O. [facility] Dictated: 05/01/2020 #[id number] Typed: 05/01/2020 #[id number] cc: Randa Lanier D.O. 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 Continue [...] PRN L (more content not included)... Normal [facility] Comment on above: Result Comment: Elec tronically Signed By: Eleuterio VIGIL, John Marin.br\Date and Time Signed: 05/03/20 07:45 EST Progress Note-Physician Assessment/Plan 1. Other chest pain [...] mg/dL High (05/03/20 12:18:00) POC Device SN: [id number] (05/03/20 12:18:00) POC Username: JOSESITO BROWN (05/03/20 [...] 0.4 mg= 1 tab(s), SubLingual, q5min, PRN [place] 5/325 Tab, 1 tab(s), Oral, q4hr, PRN [...] ophthalmic emulsion, 1 drop(s), Eye-Both, BID Normal [facility] Comment on above: Result Comment: Elec tronically Signed By: JUN VIGIL, Nhung\.br\Date and Time Signed: 05/03/20 14:42 EST Capillary Glucose POCon 10-3 Glucose [Mass/Vol] 233 mg/dL High 55-99 [facility] Comment on above: Result Comment: Monty pelayo RN/ Performed By: #### 2 [id number] ####[facility] [address] [place] [address] Glucose [Mass/Vol] 105 mg/dL High 55- [facility] Comment on above: Performed By: #### 2 [id number] #### [facility] [address] [place] [address] Glucose [Mass/Vol] 139 mg/dL High - [facility] Comment on above: Performed By: #### 2 [id number] #### [facility] [address] [place] [address] Glucose [Mass/Vol] 138 mg/dL High - [facility] Comment on above: Performed By: #### 2 [id number] #### [facility] [address] [place] [address] Glucose [Mass/Vol] 212 mg/dL High 55- [facility] Comment on above: Performed By: #### 2 [id number] #### [facility] [address] [place] [address] Lipid Panelon 05-02-2020 Cholesterol [Mass/Vol] 160 mg/dL Normal 120-200 [facility] Comment on above: Performed By: #### 2 [id number] #### [facility] [address] [place] [address] Cholesterol in HDL [Mass/Vol] 49 mg/dL Invalid Interpretation Code [facility] Comment on above: Result Comment: HDL > or equal to 60 mg/dL: Low cardiovascular risk HDL < 40 mg/dL : High cardiovascular risk Performed By: #### 2 [id number] #### [facility] [address] [place] [address] Cholesterol in LDL [Mass/Vol] 98 mg/dL Normal <=129 [facility] Comment on above: Performed By: #### 2 [id number] #### [facility] [address] [place] [address] Cholesterol in VLDL [Mass/Vol] 12 mg/dL Normal 7-40 [facility] Comment on above: Performed By: #### 2 [id number] #### [facility] [address] [place] [address] Triglyceride [Mass/Vol] 61 mg/dL Normal <=149 [facility] Comment on above: Performed By: #### 2 [id number] #### [facility] [address] [place] [address] Monitor Recordon 05-02-2020 Monitor Record [id number]# 1.00CD:127 Normal [facility] Progress Note-Physicianon Progress Note-Physician Assessment/Plan 1. [...] (05/01/20 18:27:00) (more content not included)... Normal [facility] Comment on above: Result Comment: Elec tronically Signed By: JUN VIGIL, Nhung\.br\Date and Time Signed: 05/02/20 10:00 EDT Troponin 3 Hr.on 05-02-2020 Troponin I.cardiac [Mass/Vol] 3.60 pg/mL Low 10.10-27.10 [facility] Comment on above: Result Comment: The 95% CI (Confidence Interval) PPV (Positive Predictive Value) for myocardial infarction in females is 38 pg/mL, in males 51 pg/mL. The results should be used in conjunction with clinical conditions of myocardial infarction. (Access High Sensitivity Troponin I Instructions For Use, [employer], January 2018) Performed By: #### 2 [id number] #### [facility] [address] [place] [address] Troponin 6 Hr.on 05-02-2020 Troponin I.cardiac [Mass/Vol] 3.90 pg/mL Low 10.10-27.10 [facility] Comment on above: Result Comment: The 95% CI (Confidence Interval) PPV (Positive Predictive Value) for myocardial infarction in females is 38 pg/mL, in males 51 pg/mL. The results should be used in conjunction with clinical conditions of myocardial infarction. (Access High Sensitivity Troponin I Instructions For Use, [employer], January 2018) Performed By: #### 2 [id number] #### [facility] [address] [place] [address] Troponin 9 Hr.on 05-02-2020 Troponin I.cardiac [Mass/Vol] 5.10 pg/mL Low 10.10-27.10 [facility] Comment on above: Result Comment: The 95% CI (Confidence Interval) PPV (Positive Predictive Value) for myocardial infarction in females is 38 pg/mL, in males 51 pg/mL. The results should be used in conjunction with clinical conditions of myocardial infarction. (Access High Sensitivity Troponin I Instructions For Use, [employer], January 2018) Performed By: #### 2 [id number] #### [facility] [address] [place] [address] US Carotid Duplex Bilateralo n 05-02-2020 US [...] ECA (cm/sec): 199/15 Vert. Antegrade Yes Normal [facility] Auto Diffon 05-01-2020 Basophils/100 WBC (Bld) 0.4 % Normal 0.0-2.0 [facility] Comment on above: Order Comment: Order Added by Discern Expert. Performed By: #### 2 694494, [id number], 1382163, 7107097 #### [facility] [address] [place] [address] Basophils/Leukocytes Auto (Bld) [Pure # fraction] 0.0 E9/L Normal 0.0-0.2 [facility] Comment on above: Order Comment: Order Added by Discern Expert. Performed By: #### 2 985326, [id number], 9041316, [id number] #### [facility] [address] [place] [address] Eosinophils/100 WBC (Bld) 1.2 % Normal 0.0-8.0 [facility] Comment on above: Order Comment: Order Added by Discern Expert. Performed By: #### 2 313326, 98599860, 7406975, 4616135 #### [facility] [address] [place] [address] Eosinophils/Leukocyte s Auto (Bld) [Pure # fraction] 0.1 E9/L Normal 0.0-0.5 [facility] Comment on above: Order Comment: Order Added by Discern Expert. Performed By: #### 2 941705, 84449730, 4939094, 1971008 #### [facility] [address] [place] [address] Lymphocytes/100 WBC (Bld) 9.7 % Low 14.0-50.0 [facility] Comment on above: Order Comment: Order Added by Discern Expert. Performed By: #### 2 672368, 32254379, 0074776, 0909489 #### [facility] [address] [place] [address] Lymphocytes/Leukocyte s Auto (Bld) [Pure # fraction] 1.0 E9/L Normal 1.0-4.0 [facility] Comment on above: Order Comment: Order Added by Discern Expert. Performed By: #### 2 534404, 58423429, 8941473, 0657881 #### [facility] [address] [place] [address] Monocytes/100 WBC (Bld) 4.2 % Normal 4.0-14.0 [facility] Comment on above: Order Comment: Order Added by Discern Expert. Performed By: #### 2 649669, 67832965, 8770015, 7012326 #### [facility] [address] [place] [address] Monocytes/Leukocytes Auto (Bld) [Pure # fraction] 0.4 E9/L Normal 0.2-1.0 [facility] Comment on above: Order Comment: Order Added by Discern Expert. Performed By: #### 2 096685, 89727602, 9096348, 7870873 #### [facility] [address] [place] [address] Neutrophils/100 WBC (Bld) 84.5 % High 36.0-75.0 [facility] Comment on above: Order Comment: Order Added by Discern Expert. Performed By: #### 2 206067, 77253945, 1431677, 5309391 #### [facility] [address] [place] [address] Neutrophils/Leukocyte s Auto (Bld) [Pure # fraction] 8.9 E9/L High 2.0-7.5 [facility] Comment on above: Order Comment: Order Added by Discern Expert. Performed By: #### 2 889249, 60296554, 1950281, 6226707 #### [facility] [address] [place] [address] BMPon 05-01-2020 Anion gap [Moles/Vol] 10 mmol/L Normal 6-16 [facility] Comment on above: Performed By: #### 2 085585, 82379923, 2872203, 7703027 #### [facility] [address] [place] [address] Calcium [Mass/Vol] 8.9 mg/dL Normal 8.9-11.1 [facility] Comment on above: Performed By: #### 2 142094, 87958515, 5786661, 0131814 #### [facility] [address] [place] [address] Chloride [Moles/Vol] 103 mmol/L Normal 101-111 [facility] Comment on above: Performed By: #### 2 616206, 69387955, 7831151, 0059639 #### [facility] [address] [place] [address] CO2 [Moles/Vol] 24 mmol/L Normal 21-[address] [facility] Comment on above: Performed By: #### 2 686344, 77716304, 9729370, 8464361 #### [facility] [address] [place] [address] Creatinine [Mass/Vol] 1.6 mg/dL High 0.5-1.3 [facility] Comment on above: Performed By: #### 2 898504, 38683532, 3420451, 9920774 #### [facility] [address] [place] [address] Glucose [Mass/Vol] 167 mg/dL Normal 55-199 [facility] Comment on above: Result Comment: If t his glucose result represents a fasting glucose, interpretation should refer to the following reference range: 55-99 mg/dL Performed By: #### 2 674381, 27890975, 5094024, 1208784 #### [facility] [address] [place] [address] Potassium [Moles/Vol] 3.9 mmol/L Normal 3.5-5.3 [facility] Comment on above: Performed By: #### 2 768101, 01163566, 5507929, 6676956 #### [facility] [address] [place] [address] Sodium [Moles/Vol] 133 mmol/L Low 135-145 [facility] Comment on above: Performed By: #### 2 687621, 64880281, 5094029, 2372372 #### [facility] [address] [place] [address] Urea nitrogen [Mass/Vol] 34 mg/dL High 5-21 [facility] Comment on above: Performed By: #### 2 234064, 43372285, 1978007, 6991123 #### [facility] [address] [place] [address] Urea nitrogen/Creatinine [Mass ratio] 21 No Units High 10-20 [facility] Comment on above: Performed By: #### 2 893957, 68525168, 2952702, 7093854 #### [facility] [address] [place] [address] CBC w/ Auto Diffon 0 Erythrocyte distribution width (RBC) [Ratio] 13.0 % Normal 10.9-14.2 [facility] Comment on above: Performed By: #### 2 744920, 69831426, 2501480, 4112858 #### [facility] [address] [place] [address] Hematocrit (Bld) [Volume fraction] 32.4 % Low 34.0-46.0 [facility] Comment on above: Performed By: #### 2 480754, 39264666, 4241560, 6477703 #### [facility] [address] [place] [address] Hemoglobin (Bld) [Mass/Vol] 11.2 g/dL Low 12.0-16.0 [facility] Comment on above: Performed By: #### 2 624980, 72067416, 0900800, 6224626 #### [facility] [address] [place] [address] MCH (RBC) [Entitic mass] 29.6 pg Normal 27.0-34.0 [facility] Comment on above: Performed By: #### 2 260267, 47409982, 6238398, 2924764 #### [facility] [address] [place] [address] MCHC (RBC) [Mass/Vol] 34.6 g/dL Normal 31.4-36.0 [facility] Comment on above: Performed By: #### 2 519928, 29805602, 8099237, 5355008 #### [facility] [address] [place] [address] MCV (RBC) [Entitic vol] 85.5 fL Normal 80.0-100.0 [facility] Comment on above: Performed By: #### 2 305040, 36314644, 4998234, 3909934 #### [facility] [address] [place] [address] Platelet mean volume (Bld) [Entitic vol] 8.4 fL Normal 6.4-10.8 [facility] Comment on above: Performed By: #### 2 751955, 74703382, 9475281, 3164550 #### [facility] [address] [place] [address] Platelets (Bld) [#/Vol] 242.0 E9/L Normal 150.0-500.0 [facility] Comment on above: Performed By: #### 2 439303, 69322516, 0984469, 1574140 #### [facility] [address] [place] [id number] RBC (Bld) [#/Vol] 3.8 E12/L Low 4.3-5.9 [facility] Comment on above: Performed By: #### 2 [id number], [id number], 9230742, [id number] #### [facility] [address] [place] [address] WBC corrected for nucl RBC Auto (Bld) [#/Vol] 10.5 E9/L Normal 4.0-11.0 [facility] Comment on above: Performed By: #### 2 [id number], [id number], 3086941, 2453605 #### [facility] [address] [place] [address] Capillary Glucose POCon 04-04 Glucose [Mass/Vol] 88 mg/dL Normal 55-99 [facility] Comment on above: Result Comment: Repe at Test Performed By: #### 2 [id number] #### [facility] [address] [place] [address] Glucose [Mass/Vol] 84 mg/dL Normal 55-99 [facility] Comment on above: Result Comment: Repe at Test Performed By: #### 2 [id number] #### [facility] [address] [place] [address] Coding Summary.on 05-01-2020 Coding Summary. CODING DATE: 04/25/2020 FINAL [facility] STATUS: Home (Routine DC) PAYOR: Medicare [...] [place] CphT Date Saved: 04/25/2020 04:17 pm Normal [facility] Coding Summary. CODING DATE: 05/01/2020 FINAL [facility] STATUS: Home (Routine DC) PAYOR: Medicare [...] [place] CphT Date Saved: 05/01/2020 08:36 am [facility] Consent for Treatmenton 04-04 Consent for Treatment [id number]#1 .00CD:127 [facility] Consent for Treatment [id number]#1 .00CD:127 [facility] H&P Updateon 05-01-2020 H&P Update [id number]#1 .00CD:127 [facility] Main OR PACU I Recordon 04-04 Main OR PACU I Record PACU Phase I Docum ent Type FT Summary Primary Physician: David Talamantes DO Finalized Date/Time: 05/01/20 18:04:55 Pt. Name: CLAUDIA ESTRELLA/Sex: 1950 Female Med Rec #: [id number] Physician: David Talamantes DO Financial #: [id number] Pt. Type: A Room/Bed: [place] [address] Admit/Disch: 05/01/20 11:43:14 - Institution: Case Times [...] By: Ju Bates RN 05/01/20 18:04 Normal [facility] Main OR PACU II Recordon Main OR PACU II Record PACU Phase II Document Type FT Summary Primary Physician: David Talamantes DO Finalized Date/Time: 05/01/20 20:09:08 Pt. Name: CLAUDIA ESTRELLA Katerin Ramirez/Sex: 1950 Female Med Rec #: [id number] Physician: David Talamantes DO Financial #: [id number] Pt. Type: O Room/Bed: N306/01 Admit/Disch: 05/01/20 [...] By: Yessy Curran RN 05/01/20 20:09 Normal [facility] Main OR Preoperative Recordo n 05-01-2020 Main OR Preoperative Record PreOp Document Type FT Summary Primary Physician: David Talamantes DO Finalized Date/Time: 05/01/20 14:45:06 Pt. Name: CLAUDIA ESTRELLA James/Sex: 1950 Female Med Rec #: [id number] Physician: David Talamantes DO Financial #: [id number] Pt. Type: A Room/Bed: [place] [address] Admit/Disch: 05/01/20 11:43:14 - Institution: Case Times [...] By: Viky Hernández RN 05/01/20 14:45 Normal [facility] Monitor Recordon 05-01-2020 Monitor Record [id number]# 1.00CD:127 Normal [facility] Monitor Record [id number]# 1.00CD:127 [facility] Outside Radiologyon 05-01-20 20 Outside Radiology [id number]#1 .00CD:127 [facility] Outside Recordson 05-01-2020 Outside Records [id number]#1 .00CD:127 [facility] Progress Note-Nurseon 2019 Progress Note-Nurse 1528: pt. medicated with 0.4mg [...] dtr. also at bedside and updated. Normal [facility] Progress Note-Nurse At 1653--Gisela poct stated she needed a nurse in bay 12 stat. This nurse arrived to room. Patient stated she has CP 10/10 midsternal, heaviness. Jhoana RN at bedside as well. Vitals obtained. Dr. Aldridge paged stat. 1655--1 dose 0.4 mg Nitro given sublingual. Bp 130/73 95% 2l NC 1657--Patient states CP is down 3/10, heaviness. Patient vomited 50 ml of bile. 165--114/68 70 97% NC 2L Patient reports 0/10 pain. 170--0/10 pain. EKG obtained. 170--Dr. Aldridge at bedside, verbal order given to cycle troponin levels and then he will talk to the hospitalist about admission. Dr. Aldridge explained plan of care to patient and daughter. 171--Dr. Barahona at bedside. 1714--Patient vomited 100 ml [...] daughter with belongings taken up to 306. 1805--Outpatient discharge paperwork reviewed with patient and daughter at this time--noted as this could change d/t plan of care on the floor. Paperwork, follow up appointment card, pictures and printed script given to daughter at bedside. 1829--Attempted to call Dr. Talamantes--call went to voicemail. 1834--This nurse spoke with Dr. Carter (cone runner physician), informed Dr. Carter reason for admission and patient's room number. Dr. Aldridge at bedside at 1705--Physician looked at patient EKG strip that was printed. Normal [facility] Troponin 0 Hr.on 05-01-2020 Troponin I.cardiac [Mass/Vol] 4.10 pg/mL Low 10.10-27.10 [facility] Comment on above: Result Comment: The 95% CI (Confidence Interval) PPV (Positive Predictive Value) for myocardial infarction in females is 38 pg/mL, in males 51 pg/mL. The results should be used in conjunction with clinical conditions of myocardial infarction. (Access High Sensitivity Troponin I Instructions For Use, Wilfrido Jose, January 2018) Performed By: #### 2 [id number] #### [facility] [address] [place] [address] eGFRon 05-01-2020 GFR/1.73 sq M.predicted among blacks MDRD (S/P/Bld) [Vol rate/Area] 39 mL/min/1.73 m2 Low >=59 [facility] Comment on above: Order Comment: Order added by Discern Expert. Result Comment: eGFR is race adjusted. AA=. Performed By: #### 2 [id number], [id number], 2032777, 6960679 #### [facility] [address] [place] [address] GFR/1.73 sq M.predicted among non-blacks MDRD (S/P/Bld) [Vol rate/Area] 32 mL/min/1.73 m2 Low >=59 [facility] Comment on above: Order Comment: Order added by Discern Expert. Result Comment: Pc Tech jayden kidney disease could be indicated at eGFR's of less than 60 mL/min/1.73m2. Kidney failure is indicated at less than 15 mL/min/1.73m2. Performed By: #### 2 [id number], [id number], 8935147, 2106671 #### [facility] [address] [place] [address] Coding Summary.on 04-28-2020 Coding Summary. CODING DATE: 04/28/2020 FINAL [facility] STATUS: Home (Routine DC) PAYOR: Medicare [...] CphT Date Saved: 04/28/2020 09:19 am Normal [facility] Outpatient Surgery Discharge Instructionon 04-28-2020 Outpatient Surgery Discharge Instruction [address] [address] Patient Discharge Instructions PERSON INFORMATION Name: CLAUDIA [...] Follow up: With: Address: When: David Talamantes [address] [place], [place] [id number] [facility] (1) Comments: Keep scheduled appointment Type Location Start [facility] 05/01/2020 2:15 PM 05/01/2020 2:55 PM Confirmed Pharmacy Information: [facility] HERE ARE THE MEDICATION CHANGES THAT [...] tab Oral Daily. PATIENT EDUCATION INFORMATION Instructions: [place], [place] [facility] DISCHARGE INSTRUCTIONS: KNEE ARTHROSCOPY [...] result of (more content not included)... Normal [facility] Consent for Procedure/Surger yon 04-27-2020 Consent for Procedure/Surgery [id number]# 1.00CD:127 Normal [facility] Outside Recordson 04-27-2020 Outside Records [id number]# 1.00CD:127 Normal [facility] Priority Order-Trina 2019 Priority Order-STAT Comment Invalid Interpretation Code [facility] Comment on above: Result Comment: Rece ived Performed at: [facility] [address] [facility] [place] [id number] MD Bladimir Briones Performed By: #### 2 [id number] #### [facility] [address] [place] [address] SARS-CoV-2, NAAon 04-25-2020 SARS-CoV-2 (COVID-19) RNA JAYASHREE+probe Ql (Resp) Not detected Invalid Interpretation Code Not Detected [facility] Comment on above: Result Comment: This nucleic acid amplification test was developed and its performance characteristics determined by [employer]. Nucleic acid amplification tests include PCR and [...] detected) result in this assay. Performed at: [facility] [address] [facility], [place] [id number] MD Bladimir Briones Performed By: #### 2 [id number] #### [facility] [address] [place] [address] XR Chest 2 Viewson 0 XR Chest [...] M.D. Transcribed by: LUDIN Technologist: [place] Normal [facility] BUNon 04-24-2020 Urea nitrogen [Mass/Vol] 36 mg/dL High 5-21 [facility] Comment on above: Performed By: #### 1 [id number], 0203342, 5107632, 2993736, 4469054, 6917459 ####[facility] [address] [place] [address] CBC w/Indiceson 04-24-2020 Erythrocyte distribution width (RBC) [Ratio] 13.0 % Normal 10.9-14.2 [facility] Comment on above: Performed By: #### 1 3307085, 7765977, 5789131, 8642823, 1428920, 4381431 ####[facility] [address] [place] [address] Hematocrit (Bld) [Volume fraction] 34.1 % Normal 34.0-46.0 [facility] Comment on above: Performed By: #### 1 1528584, 8903921, 4037634, 3300794, 6090529, 1306791 ####[facility] [address] [place] [address] Hemoglobin (Bld) [Mass/Vol] 11.6 g/dL Low 12.0-16.0 [facility] Comment on above: Performed By: #### 1 9257952, 1455797, 8252598, 8870425, 2242094, 9900825 ####[place] [address] [place] [address] MCH (RBC) [Entitic mass] 29.5 pg Normal 27.0-34.0 [facility] Comment on above: Performed By: #### 1 8718168, 7919784, 4360998, 2100983, 9394693, 1656450 ####[place] [address] MCHC (RBC) [Mass/Vol] 34.1 g/dL Normal 31.4-36.0 [facility] Comment on above: Performed By: #### 1 8122863, 8199028, 3178206, 2120198, 0322481, 5294787 ####[address] [address] MCV (RBC) [Entitic vol] 86.5 fL Normal 80.0-100.0 [facility] Comment on above: Performed By: #### 1 6432332, 2819751, 5280156, 6147904, 9770261, 4853056 ####[place] [address] [place] [address] Platelet mean volume (Bld) [Entitic vol] 9.4 fL Normal 6.4-10.8 [facility] Comment on above: Performed By: #### 1 3632417, 5198643, 6714590, 7478158, 3873446, 5094600 ####[address] [address] Platelets (Bld) [#/Vol] 246.0 E9/L Normal 150.0-500.0 [facility] Comment on above: Performed By: #### 1 5020391, 1669197, 2661512, 3961573, 3346567, 3063557 ####[facility] [address] [place] [address] RBC (Bld) [#/Vol] 3.9 E12/L Low 4.3-5.9 [facility] Comment on above: Performed By: #### 1 7256766, 8521903, 0300104, 3845243, 0270837, 9226051 ####[facility] [address] [place] [address] WBC corrected for nucl RBC Auto (Bld) [#/Vol] 10.0 E9/L Normal 4.0-11.0 [facility] Comment on above: Performed By: #### 1 0766232, 3500668, 5561699, 9864155, 0131938, 1868502 ####[facility] [address] [place] [address] Consent for Treatmenton 04-03 Consent for Treatment [id number] .00CD:127 Normal [facility] Creatinineon 04-24-2020 Creatinine [Mass/Vol] 1.6 mg/dL High 0.5-1.3 [facility] Comment on above: Performed By: #### 1 6055845, 8615495, 4775218, 0454625, 7996910, 8660850 ####[facility] [address] [place] [address] Glu Fastingon 04-24-2020 Glucose [Mass/Vol] 81 mg/dL Normal 55-99 [facility] Comment on above: Performed By: #### 1 2569395, 0313701, 8327529, 7770992, 1215344, 9641214 ####[facility] [address] [place] [address] Lyteson 04-24-2020 Anion gap [Moles/Vol] 13 mmol/L Normal 6-16 [facility] Comment on above: Performed By: #### 1 7905089, 4298432, 8821604, 3958475, 4541842, 3721303 ####[facility] [address] [place] [place] [address] Chloride [Moles/Vol] 103 mmol/L Normal 101-111 [facility] Comment on above: Performed By: #### 1 1269275, 5912911, 5584238, 3160997, 6511178, 0343859 ####[facility] [address] [place] [place] [address] CO2 [Moles/Vol] 26 mmol/L Normal 21-[address] [facility] Comment on above: Performed By: #### 1 3589298, 0379704, 1910435, 6094717, 6596456, 9343114 ####[facility] [address] [place] [place] [address] Potassium [Moles/Vol] 3.9 mmol/L Normal 3.5-5.3 [facility] Comment on above: Performed By: #### 1 8466969, 5724975, 9636934, 1182435, 5898940, 8089796 ####[facility] [address] [place] [address] Sodium [Moles/Vol] 138 mmol/L Normal 135-145 [facility] Comment on above: Performed By: #### 1 9525390, 2624283, 4450325, 4204289, 5914247, 5274365 ####[facility] [address] [place] [facility] [place] [address] Physician Orderon 04-24-2020 Physician Order [id number]# 1.00CD:127 Normal [facility] eGFRon 04-24-2020 GFR/1.73 sq M.predicted among blacks MDRD (S/P/Bld) [Vol rate/Area] 39 mL/min/1.73 m2 Low >=59 [facility] Comment on above: Order Comment: Order added by Discern Expert. Result Comment: eGFR is race adjusted. AA=. Performed By: #### 1 9052353, 8878911, 1306087, 1436834, 5293650, 5323247 ####[facility] [address] [place] [address] GFR/1.73 sq M.predicted among non-blacks MDRD (S/P/Bld) [Vol rate/Area] 32 mL/min/1.73 m2 Low >=59 [facility] Comment on above: Order Comment: Order added by Discern Expert. Result Comment: Pc Tech jayden kidney disease could be indicated at eGFR's of less than 60 mL/min/1.73m2. Kidney failure is indicated at less than 15 mL/min/1.73m2. Performed By: #### 1 3094782, 1896430, 2529326, 3924310, 7825378, 8669707 ####[facility] [address] [place] [address] Physician Orderon 04-13-2020 Physician Order [id number]# 1.00CD:127 Normal [facility] Physician Orderon 04-10-2020 Physician Order [id number]# 1.00CD:127 Normal [facility] Social History Date Type Detail Facility Start: 11-23-2017 Tobacco smoking status NHIS Never smoked tobacco (finding) [facility] Start: 1950 Sex Assigned At Female F [facility] Unknown if ever smoked [facility] Other Sex Assigned At Sex Assigned At Bir th [facility] Other Vital Signs Date Time Vital Sign Value Performing Clinician Facility 09-25-2023 15:52-0400 Body weight 58.74 kg [facility] 09-25-2023 15:52-0400 Diastolic blood pressure 60 mm[Hg] [facility] 09-25-2023 15:52-0400 Heart rate 65 /min [facility] 09-25-2023 15:52-0400 Systolic blood pressure 110 mm[Hg] [facility] 05-30-2023 15:40-0500 Body height 147.32 cm [facility] Other [facility] Other 05-30-2023 15:40-0500 Body mass index (BMI) [Ratio] 26.92 kg/m2 [facility] Other [facility] Other 05-30-2023 15:40-0500 Body temperature 97 [degF] [facility] Other 05-30-2023 15:40-0500 Body weight 58.42 kg [facility] Other [facility] Other 05-30-2023 15:40-0500 Diastolic blood pressure 71 mm[Hg] [facility] Other 05-30-2023 15:40-0500 Respiratory rate 18 /min [facility] Other [facility] Other 05-30-2023 15:40-0500 SaO2% (BldA) [Mass fraction] 97 % [facility] Other [facility] Other 05-30-2023 15:40-0500 Systolic blood pressure 153 mm[Hg] [facility] Other 01-30-2023 15:40-0400 Body height 147.32 cm [facility] Other [facility] Other 01-30-2023 15:40-0400 Body mass index (BMI) [Ratio] 26.83 kg/m2 [facility] Other [facility] Other 01-30-2023 15:40-0400 Body temperature 97.7 [degF] [facility] Other [facility] Other 01-30-2023 15:40-0400 Body weight 58.24 kg [facility] Other [facility] Other 01-30-2023 15:40-0400 Diastolic blood pressure 67 mm[Hg] [facility] Other [facility] Other 01-30-2023 15:40-0400 Respiratory rate 18 /min [facility] Other [facility] Other 01-30-2023 15:40-0400 SaO2% (BldA) [Mass fraction] 98 % [facility] Other [facility] Other 01-30-2023 15:40-0400 Systolic blood pressure 136 mm[Hg] [facility] Other [facility] Other 08-30-2022 14:40-0500 Body height 147.32 cm [facility] Other [facility] Other 08-30-2022 14:40-0500 Body mass index (BMI) [Ratio] 26.29 kg/m2 [facility] Other [facility] Other 08-30-2022 14:40-0500 Body temperature 98.6 [degF] [facility] Other [facility] Other 08-30-2022 14:40-0500 Body weight 57.06 kg [facility] Other [facility] Other 08-30-2022 14:40-0500 Diastolic blood pressure 72 mm[Hg] [facility] Other [facility] Other 08-30-2022 14:40-0500 Respiratory rate 18 /min [facility] Other [facility] Other 08-30-2022 14:40-0500 SaO2% (BldA) [Mass fraction] 96 % [facility] Other [facility] Other 08-30-2022 14:40-0500 Systolic blood pressure 139 mm[Hg] [facility] Other [facility] Other 05-30-2022 11:40-0500 Body height 147.32 cm [facility] Other [facility] Other 05-30-2022 11:40-0500 Body mass index (BMI) [Ratio] 27.25 kg/m2 [facility] Other [facility] Other 05-30-2022 11:40-0500 Body temperature 96.2 [degF] [facility] Other [facility] Other 05-30-2022 11:40-0500 Body weight 59.15 kg [facility] Other [facility] Other 05-30-2022 11:40-0500 Diastolic blood pressure 71 mm[Hg] [facility] Other [facility] Other 05-30-2022 11:40-0500 SaO2% (BldA) [Mass fraction] 97 % [facility] Other [facility] Other 05-30-2022 11:40-0500 Systolic blood pressure 151 mm[Hg] [facility] Other [facility] Other 01-27-2022 12:20-0400 Body height 147.32 cm [facility] Other [facility] Other 01-27-2022 12:20-0400 Body mass index (BMI) [Ratio] 26.83 kg/m2 [facility] Other [facility] Other 01-27-2022 12:20-0400 Body temperature 98 [degF] [facility] Other [facility] Other 01-27-2022 12:20-0400 Body weight 58.24 kg [facility] Other [facility] Other 01-27-2022 12:20-0400 Diastolic blood pressure 69 mm[Hg] [facility] Other [facility] Other 01-27-2022 12:20-0400 Respiratory rate 18 /min [facility] Other [facility] Other 01-27-2022 12:20-0400 SaO2% (BldA) [Mass fraction] 96 % [facility] Other [facility] Other 01-27-2022 12:20-0400 Systolic blood pressure 136 mm[Hg] [facility] Other [facility] Other 09-20-2021 16:00-0400 Body height 147.32 cm [facility] Other [facility] Other 09-20-2021 16:00-0400 Body mass index (BMI) [Ratio] 27.42 kg/m2 [facility] Other [facility] Other 09-20-2021 16:00-0400 Body temperature 97.6 [degF] [facility] Other [facility] Other 09-20-2021 16:00-0400 Body weight 59.51 kg [facility] Other [facility] Other 09-20-2021 16:00-0400 Diastolic blood pressure 76 mm[Hg] [facility] Other [facility] Other 09-20-2021 16:00-0400 Respiratory rate 18 /min [facility] Other [facility] Other 09-20-2021 16:00-0400 SaO2% (BldA) [Mass fraction] 97 % [facility] Other [facility] Other 09-20-2021 16:00-0400 Systolic blood pressure 169 mm[Hg] [facility] Other [facility] Other 05-18-2021 15:40-0500 Body height 147.32 cm [facility] Other [facility] Other 05-18-2021 15:40-0500 Body mass index (BMI) [Ratio] 26.5 kg/m2 [facility] Other [facility] Other 05-18-2021 15:40-0500 Body temperature 97.2 [degF] [facility] Other [facility] Other 05-18-2021 15:40-0500 Body weight 57.52 kg [facility] Other [facility] Other 05-18-2021 15:40-0500 Diastolic blood pressure 79 mm[Hg] [facility] Other [facility] Other 05-18-2021 15:40-0500 Respiratory rate 18 /min [facility] Other [facility] Other 05-18-2021 15:40-0500 SaO2% (BldA) [Mass fraction] 97 % [facility] Other [facility] Other 05-18-2021 15:40-0500 Systolic blood pressure 137 mm[Hg] [facility] Other [facility] Other Clinical Notes 04-27-2020 to 09-04-2023 Note Date & Type Note Facility 09-04-[address] Cardiology - [facility] Subjective Claudia Estrella is a 73 y.o. year old female patient being seen for follow up [facility] for CHF. She has not seen nephrology [...] 90 tablet, Rfl (more content not included)... [facility] 08-04-[address] Cardiology - [facility] Subjective Claudia Estrella is a [...] Rfl: 3 ergocalciferol (Vitamin D-2) 1.25 MG (18309 UT) capsule, Take 1 capsule by mouth 1 (one) time per week., Disp: , Rfl: ferrous sulfate 325 (65 Fe) M (more content not included)... [facility] 07-11-2023 Note Reviewed pt's b/p si [...] to evaluate symptoms and response. Carmina Rosales METHODS ENGINEER Division of Cardiology, [facility]- [phone] Pager- [phone] Email- [email or web address] 05-30-2023 Evaluation note Encounter Date Diagnosis [...] has adequate Iron stores. Continue oral iron. [facility] Other [id number] NoteNY II Currently euvolemic without exacerbation Continue GDMT- Diuretic therapy- As per nephrology recommendations she takes Bumex 3 mg twice daily and metolazone 2.5 mg as needed Monitor daily weights, I&O, fluid restriction 1.5-2L/day, [facility] function [facility] NoteHypertension is Well-controlled blood pressure 131/71 Continue all medications Follow-up with nephrology as scheduledUnMari[facility] 02-24-2023 NoteCoronary artery disease is stable Continue GDMT- Continue aspirin, Lipitor and metoprolol continue risk factor modifications- heart healthy diet, regular exercise as tolerated and continue all medications.[facility] 02-24-2023 NoteUTP CARDIOLOGY PROGRESS NOTE HPI: [...] tablet 3 ergocalciferol (Vitamin D-2) 1.25 MG (10161 UT) capsule Take 1 capsule by mouth [...] moderately elevated right-sided pressures, (more content not included)...[facility]08-25-2023 NotePatient here for 6 mo follow up CAD, chronic diastolic heart failure, hypertension, and CKD. Had labs about 1 month ago. Still gets the chest pain, but says it's better. Gets winded when walking long distances. Doing great. Review of Systems Cardiovascular: Positive for chest pain (continues to improve) and dyspnea on exertion. All other systems reviewed and are negative.[facility] 01-30-2023 Evaluation note* Encounter Date Diagnosis [...] has adequate Iron stores. Continue oral iron. [facility] Other 03-13-2023 NoteUT Cardiology - [facility] Subjective Claudia Estrella is a 72 [...] is alert and orien (more content not included)...[facility]02-28-2023 Evaluation note* Encounter Date Diagnosis Assessment [...] past. Will defer this to the PCP. [facility] Other 11-28-2022 Evaluation note* Encounter Date Diagnosis [...] an adequate Iron stores. Continue oral iron. [facility] Other 11-21-2022 Evaluation note* Encounter Date Diagnosis Assessment Notes Treatment Notes Treatment Clinical Notes May, CKD (chronic kidney disease) stage 4, GFR 15-29 ml/min (ICD-10 - N18.4) [facility] Other 07-28-2022 Evaluation note* Encounter Date Diagnosis [...] an adequate Iron stores. Continue oral iron. [facility] Other 03-22-2022 Evaluation note* Encounter Date Diagnosis Assessment Notes Treatment Notes Treatment Clinical Notes Aug, Hypokalemia (ICD-10 - E87.6) [facility] Other 03-21-2022 Evaluation note* Encounter Date Diagnosis [...] an adequate Iron stores. Continue oral iron. [facility] Other 01-16-2022 Evaluation note* Encounter Date Diagnosis Assessment Notes Treatment Notes Treatment Clinical Notes Jul, Hyperuricemia (ICD-1 0 - E79.0) [facility] Other 11-16-2021 Evaluation note* Encounter Date Diagnosis [...] an adequate Iron stores. Continue oral iron. [facility] Other 11-02-2020 NoteRounds at this time with Dr Ramirez Yeboah. Daughter bedside. Patient is alert & [...] eval done prior to d/c. Per Dr Michel - patient did not have stress test done today as it was not on schedule. MURPHY Amor notified Taylor Fisher & Maryan Lopez.[facility]:Result Comment: Electronically Signed By: Zuleyma Shin RN\.br\Date and Time Signed: 05/04/20 13:53 [id number] NoteBasic Information Cardiology Progress Subjective Cardiology consulted over weekend for chest discomfort post operatively. Her EKG was non-acute and troponin trended negative. She does have a bank credit card collection clerk and reportedly had stress testing in August [...] mg/dL High (05/04/20 12:12:00) POC Device SN: [id number] (05/04/20 12:12:00) POC Username: NESHA COTA (05/04/20 [...] prefers all testing to be performed at [facility]. Faxed notes to her primary bank credit card collection clerk's office, Dr Fish. Attempted to schedule stress testing with [facility]. Ordered: EC Stress Echo Complete w/ Contrast 2. Hypertension (I10: Essential (primary) hypertension) Continue current medications and follow up with primary bank credit card collection clerk on discharge. 3. Diabetes (E11.9: Type 2 [...] discuss this management further with her primary bank credit card collection clerk, but agreeable to starting statin for now. Patient is offered in-patient stress echocardiogram but declines as she wants to be discharged. She is offered out patient stress testing at [facility] tomorrow am and she prefers to have this done at [facility]. Per Central Scheduling at [facility], Dobutamine Stress Echo's are not performed at the facility. She will have close FU with Dr Fish to move forward with testing. D/W Dr Michel. Faxed info from [facility] Hospital stay to her primary bank credit card collection clerk. Attestation Discussed patient findings and plan of [...] tab(s), Oral, Bedtime saturnino (more content not included)...[facility] HospitalComment on above: Result Comment: Electronically Signed By: Trudy SUAZO CNP\.br\Date and Time Signed: 05/04/20 13:15 EST\.br\Electronically Co-Signed By: Jay Jay Ramírez MD\.br\Date and Time Co-Signed: 05/04/20 13:19 [id number] NoteIV removed. nurse server administrator emptied. patient and patients daughter verbalized understanding of discharge teaching. patient refused flu vaccination. patient did not verbalize any questions or concerns atthis time.[facility]11-02-[facility] Note Admission Information Admitting Physician - [...] another day versus following up with her bank credit card collection clerk and she has opted to do the latter. This is reasonable as she is chest pain-free at rest as well as on exertion. Patient is already on lisinopril, metoprolol, aspirin. Lipitor 20 mg was added for further risk reduction. She will follow-up with her primary bank credit card collection clerk Dr. Fish. Regarding her recent Ortho surgery she will do weightbearing activity as tolerated and use crutchesfor assistance with ambulation. Dr. Kushal Michel Hospitalist This report was transcribed using voice recognition software. Every effort was made to ensure accuracy, however, inadvertently computerized lawn service worker mistakes may be present. Significant Findings POWERSCRIBE [...] pain) Ordered: Hospital Discharge Day 30 Min/Less 54219 2. Hypertension (I10: Essential (primary) hypertension) Ordered: Hospital Discharge Day 30 Min/Less 40231 3. Diabetes (E11.9: Type 2 diabetes mellitus without complications) Ordered: atorvastatin, 20 mg = 1 tab(s), Oral, Bedtime, # 30 tab(s), Refills(s) 1, Pharmacy: [facility]/pharmacy #[id number], 141.5, cm, 04/24/20 13:16:00 EDT, Height/Length Dosing, 69, kg, 05/02/20 5:50:00 EDT, Weight Dosing Hospital Discharge Day 30 Min/Less 19384 4. Acute medial meniscus tear of left knee (S83.242A: Other tear of medial meniscus, current injury, left knee, initial encounter) Ordered: Hospital Discharge Day 30 Min/Less 51122 5. Localized osteoarthritis of left knee (M17.12: Unilateral primary osteoarthritis, left knee) Ordered: Hospital Discharge Day 30 Min/Less 21613 6. No contraindication to deep vein thrombosis (DVT) prophylaxis (Z78.9: Other specified health status) Ordered: Hospital Discharge Day 30 Min/Less 43245 Bruit (R09.89: Other specified symptoms and signs [...] With When Contact Information Follow up with Line Up Machine Operator Within 1 week Additional Instructions: JOHN PERDOMO [facility] [place] [address]- [employer] (1) Additional Instructions: David Talamantes [address] [place] [address]- [employer] (1) Additional Instructions: Keep scheduled (more content not included)...[facility] HospitalComment on above:Result Comment: Electronically Signed By: RAMIREZ VIGIL, Kushal\.br\Date and Time Signed: 05/04/20 12:[id number] [address]Dr[address] Manjular rounded with patient earlier. CRM [...] time. Anticipated discharge 05/04/2020 home. CRM to follow.[facility] HospitalComment on above:Result Comment: Electronically Signed By: Ab WU, Terri Ramirez\.br\Date and Time Signed: 05/02/20 10:06 [id number] NoteReason for Consultation Chest pain postoperatively History of Present Illness Mrs. Estrella is a very pleasant 70-year-old diabetic female with hypertension, unknown cholesterol, previously seen by bank credit card collection clerk Dr. Fish in September 2019 for what [...] testing apparently took place in a private bank credit card collection clerk office, so I am unsure whether we [...] test in September 2019 at a private bank credit card collection clerk 's office, reportedly LV dysfunction per thepatient, [...] she undergo a dobutami (more content not included)...[facility] HospitalComment on above:Result Comment: Electronically Signed By: Eleuterio VIGIL, John Marin.rashmi\Date and Time Signed: 05/02/20 08:35 [id number] NoteBasic Information Accompanied by: Family member Source of History: Self Present at Bedside: Family member Referral Source: Recovery room History Limitation: None Chief Complaint chest pain History of Present Illness Pt is a 70 F PMH HTN, HLD admitted from PACU. pt had a repair of a left medial meniscus tear with Dr. Talamantes of [facility]. Pt was in PACU recovering, had a [...] 84 mg/dL (05/01/20 16:07:00) POC Device SN: [id number] (05/01/20 16:07:00) POC Username: ALEXIA HALL (05/01/20 16:07:00) Diagnostic Results EKG NSR [address]-T wave changes Images No qualifying data available. Assessment/Plan 1. Other chest pain (R07.89: Other chest pain) - possible ACS, risk factors include DM, HTN, obesity - telemetry, troponin - ASA, fasting lipid profile - consult [facility] cardiology 2. Hypertension (I10: Essential (primary) hypertension) [...] acetaminophen 325 mg Tab (more content not included)...[facility] HospitalComment on above:Result Comment: Electronically Signed By: JUN VIGIL, Nhung\.br\Date and Time Signed: 05/01/20 18:30 [id number] Note [id number]:127[facility] Evaluation noteNo [facility] [employer] Other Evaluation note* Diagnosis Onset Date Resolution Status Anemia of renal disease acut e CKD (chronic kidney disease) stage 4, GFR 15-29 ml/min acute Hyperlipidemia acute [id number] acute Hyperuricemia acute Hypokalemia acute Microscopic hematuria acute Secondary hyperparathyroidism acute Type 2 diabetes mellitus wit h diabetic chronic kidney disease acute [facility] Work Phone: History general Narrative - Reported* Type Description [...] eye surgery 04/2021 Hospitalization History see above [facility] Other [facility] general Narrative - Reported* Type Description Date [...] RIGHT EYE 2021 Hospitalization History see above [facility] Other history general Narrative - Reported* Type [...] HEART CATH 12/2021 Hospitalization History see above [facility] Other Summary Purpose Family History No Family History Records Found Relationship Condition Age at Onset Recorded Date/T christophe daughter Hypertension Unknown father Unknown Heart disease Unknown Dementia Unknown Not Specified Unknown natural son Hypertension Unknown sister Family history of other condition Unknown Advance Directives No Advanced Directives Records Found Advance Directive Response Recorded Date/ Time Advance Directives No July 27, 2021 11:36am Chief Complaint and Reason for Visit Chief Complaint RENAL 4 month Follow up Reason for Visit Anemia of renal dise ase CKD (chronic kidney disease) stage 4, GFR 15-29 ml/min Hyperlipidemia [id number] Hyperuricemia Hypokalemia Microscopic hematuria Secondary hyperparathyroidism Type 2 diabetes mellitus with diabetic chronic kidney disease Additional Source Comments INFORMATION SOURCE (unrecogn ized section and content) DATE CREATED AUTHOR 03/07/2021 [facility] DATE CREATED AUTHOR AUTHOR'S ORGANIZ ATION 08/05/2021 [facility] DATE CREATED AUTHOR AUTHOR'S ORGANIZ ATION 12/16/2021 [facility] DATE CREATED AUTHOR AUTHOR'S ORGANIZ ATION 10/29/2022 [facility] DATE CREATED AUTHOR AUTHOR'S ORGANIZ ATION 09/04/2023 [facility] DATE CREATED AUTHOR AUTHOR'S ORGANIZ ATION 11/09/2023 [facility] EPIC REASON FOR VISIT (unrecogniz ed section and content) CKDNew Refill RequestCOVIDCH G PHARMACYCKDDisregard previousClinicalFluid restrictionNo InformationClinicalNo InformationWEIGHTCKD and HTNMED CLARIFICATIONCRITICAL LABCKD and HTNCKD and HTNNo InformationCKD and HTNQuestion from appointmentNo InformationCKD and HTNFYI / MEDSClinical Care Teams (unrecognized sec tion and content) Team Status: Active Member Role Status Dates John Perdomo DO Primary Care Provider Active Team Status: Inactive Member Role Status Dates John Perdomo DO Primary Care Provider Active Start: September 25, 2023 End: September 25, 2023 Geneva Jenkins MD Attending Provider Active Start : September 25, 2023 End: September 25, 2023 Goals (unrecognized section and content) Goals may be documented in a n alternate section FOR RECORDS PERTAINING TO PATIENTS WHO ARE [...] BE BASED ON THE PRIMARY CLINICAL RECORDS. [employer] [facility]. provides no warranty or guarantee of the accuracy or completeness of information in this document.
[2024-01-01 10:33] LABS: Hematocrit 32.4 % (36.0-48.0); Hemoglobin 10.4 g/dL (12.0-16.0); Mean Corpuscular HGB Conc 32.1 g/dL (29.9-35.2); Mean Corpuscular Hemoglobin 27.4 pg (26.7-34.0); Mean Corpuscular Volume 85.3 fL (81.0-99.0); Mean Platelet Volume 10.9 fL (9.5-13.5); Platelet Count 184 10^3/uL (150-450); Red Cell Distribution Width 15.2 % (11.0-15.0); White Blood Count 8.9 10^3/uL (4.0-11.0)
[2024-01-01 11:10] LABS: Creatinine Urine Random 88.24 mg/dL (20.00-300.00); Protein Creatinine Ratio Urine 1.06; Total Protein Urine Random 93.2 mg/dL (<=11.9)
[2024-01-01 11:43] LABS: Albumin Level 3.3 g/dL (3.4-5.0); Anion Gap 12.1; BUN Creatinine Ratio 21.9; Calcium 9.2 mg/dL (8.5-10.1); Carbon Dioxide 27.3 mmol/L (21.0-32.0); Chloride 103 mmol/L (98-107); Estimated GFR (African America 26 (>=60); Estimated GFR (Non-African Ame 21 (>=60); Glucose 139 mg/dL (74-106); Magnesium 2.3 mg/dL (1.8-2.4); Potassium 4.4 mmol/L (3.5-5.1); Sodium 138 mmol/L (136-145); Uric Acid 5.9 mg/dL (2.6-6.0)
[2024-01-01 11:45] LABS: Percent Iron Saturation 16.2 %
[2024-01-02 13:08] LABS: PTH, Intact 95 pg/mL (15-65)
[2024-01-02 17:09] LABS: Albumin 3.5 g/dL (2.9-4.4); Alpha-1-Globulin 0.3 g/dL (0.0-0.4); Alpha-2-Globulin 0.9 g/dL (0.4-1.0); Free Kappa Lt Chains,S 75.5 mg/L (3.3-19.4); Free Lambda Lt Chains,S 60.4 mg/L (5.7-26.3); Gamma Globulin 1.3 g/dL (0.4-1.8); Immunoglobulin A, Qn, Serum 580 mg/dL (64-422); Immunoglobulin G, Qn, Serum 1132 mg/dL (586-1602); Immunoglobulin M, Qn, Serum 155 mg/dL (26-217); Kappa/Lambda Ratio,S 1.25 (0.26-1.65)
== END 2024-01-01 10:06 | disposition home or self-care (01) ==
PROVIDERS: PCP Family Medicine; Visit Provider Internal Medicine
DX: E11.22 Type 2 diabetes mellitus with diabetic chronic kidney disease (principal); N18.9 Chronic kidney disease, unspecified; D63.1 Anemia in chronic kidney disease; E78.5 Hyperlipidemia, unspecified; E87.6 Hypokalemia; I12.9 Hypertensive chronic kidney disease with stage 1 through stage 4 chronic kidney disease, or unspecified chronic kidney disease; N18.4 Chronic kidney disease, stage 4 (severe)
CPT/HCPCS: 36415; 80069; 82306; 82570; 82728; 82784; 83521; 83540; 83550; 83735; 83970; 84155; 84156; 84165; 84166; 84550; 85027; 86335

== ENCOUNTER 2024-05-09 10:32 | Outpatient (OUT) | payer MEDICARE, OTHER, SELFPAY ==
--- OUTSIDE RECORDS SUMMARY | 2024-05-09 10:42 | XMS_ITS | CCD ---
Author Organization [facility] Care Team Providers Care Type Copyist Name Role Phone JOHN PEDROMO Referring Unavailable PERDOMO, JOHN Primary Care Unavailable [...] Attending Unavailable MARY GRACE, GENEVA Consulting Unavailable TIMMISSHEYLA Attending Unavailable PERDOMO, JOHN Mcdonough Referring Unavailable ZAMIRTA EDEN Attending Unavailable MOUKARBEL, KARTHIK Attending Unavailable MOUKARBEL, KARTHIK Attending Unavailable MOUKARBEL, KARTHIK Attending Unavailable Allergies Allergy Classification Reported Allergen(s) Allergy Type Date of Onset Reaction(s) Facility Opioid Agonists (1 source) HYDROmorphone Drug Allergy 4 Unknown Reaction [facility] Penicillins (antibiotic) (1 source) Penicillin G Benzathine Drug Allergy 4 [facility] Spironolactone (1 source) Spironolactone Drug Allergy 4 [facility] (2 sources) Erythromycin; Translations: [ERYTHROMYCIN] Drug Allergy 1 [facility] (2 sources) HYDROmorphone Drug Allergy 1 [facility] (2 sources) Penicillins; Translations: [PENICILLINS] Drug allergy (disorder) 1 [facility] (20 sources) Erythromycin Drug Allergy anaphylaxis [facility] [employer] Other (20 sources) HYDROmorphone; Translations: [HYDROMORPHONE] Drug Allergy 2 [facility] (20 sources) Penicillin Drug Allergy Unknown [facility] [employer] Other (20 sources) Penicillin G Benzathine Drug allergy 3 [facility] (4 sources) Erythromycin; Translations: [ERYTHROMYCIN BASE] Drug Allergy 0 anaphylaxis [facility] (1 source) Penicillin Drug Allergy [facility] (5 sources) Spironolactone; Translations: [SPIRONOLACTONE] Drug Allergy 3 [facility] Medications Current Medications Medication Drug Class(es) Dates Sig (Normalized) Sig (Original) allopurinol 100 mg oral tablet (20 sources) Xanthine Oxidase Inhibitor Start: 09-06-2023 take 1 tablet by mouth once daily Allopurinol Active 0 .ROUTE .COMPLEX September 06, 2023 5:52pm TAKE 1 TABLET BY MOUTH EVERY DAY Start: 09-05-2023 End: 09-06-2023 take 1 tablet by mouth once daily Allopurinol Discontinued 100 MG PO Daily 90 September 05, 2023 6:29pm September 06, 2023 [...] a day; Note: Source Status: Taking; Provider: Mar yGrace Bean ( ) take 1 tablet by [...] tablet (20 sources) Loop Diuretic Start: 09-25-19 End: 01-08-20 take 3 mg by mouth twice daily Bumetanide Active 3 MG PO Twice daily January 08, 2024 1:04pm take 1 tablet by mouth twice zuhair [...] mg/ml / timolol 5 mg/ml ophthalmic solution (5 sources) Carbonic Anhydrase Inhibitor, beta-Adrenergic Ranjit Start: [...] tablet (20 sources) alpha-Adrenergic Ranjit Start: 09-25-2023 End: 01-08-2024 take 6 mg by mouth twice daily Doxazosin Active 6 MG PO Twice daily January 08, 2024 1:05pm take 1 tablet by mouth twice zuhair ly Doxazosin Mesylate 4 MG 1 1/2 TABLETS Orally TWICE A DAY Active ergocalciferol 1.25 mg oral capsule (20 sources) Provitamin D2 Compound Start: 09-25-2023 take 1 capsule by mouth every week Ergocalciferol (Vitamin D2) Active 08949 UNIT PO EVERY 2 WEEKS September 25, 2023 12:00am [employer]: TAKE 1 CAPSULE BY MOUTH ONE TIME PER WEEK; Note: Source Status: Start; Refills: 2; Qty: 12 Capsule; Provider: Mary Grace Bean ( ) take 1 capsule by mouth every we ek Vitamin D (Ergocalciferol) 1.25 MG (06444 UT) TAKE 1 CAPSULE BY MOUTH ONE TIME PER WEEK for 84 Active take 1 capsule by mo uth every other week Ergocalciferol 1.25 MG (30224 UT) 1 caps ule Orally Q2 week [...] tablet (20 sources) Arteriolar Vasodilator Start: 09-25-2023 End: 01-08-2024 take 25 mg by mouth three times daily Hydralazine Active 25 MG PO Three times daily January 08, 2024 1:09pm Start: 09-20-2021 take 1 tablet by yossi th every twelve hours hydrALAZINE HCl 25 MG 1 tablet with food Orally bid for 90 day(s) Aug, Active take 1 tablet by yossi th every eight hours hydrALAZINE HCl 25 MG 1 tablet with food Orally Three times a day for 90 day(s) Active 3 ml insulin glargine 100 unt/ml pen injector (2 sources) Insulin Analog Start: 09-25-2023 Insulin Glargi ne (Basaglar Kwikpen U-100 Insulin) 100 unit/mL (3 mL) insulin [...] Active isosorbide dinitrate 30 mg oral tablet (8 sources) Nitrate Vasodilator Start: 09-25-2023 take 1 [...] tablet (20 sources) beta-Adrenergic Ranjit Start: 09-25-2023 End: 01-08-2024 take 75 mg by mouth twice daily Metoprolol Tartrate Active 75 MG PO Twice daily January 08, 2024 1:07pm Metoprolol Tartr ate 50 MG 1 1/2 tablet with food Orally Twice a day Active midodrine hydrochloride 5 mg oral tablet (1 source) alpha-Adrenergic Agonist Start: 01-08-2024 take 5 mg by mouth three times daily Midodrine Active 5 MG PO Three times daily January 08, 2024 12:00am potassium chloride 20 meq extended release oral tablet (20 sources) Start: 09-25-2023 End: 11-16-2023 take 40 mEq by mouth three times daily Potassium Chloride Active 40 MEQ PO Three times daily 540 90 November 16, 2023 1:50pm take 2 tablets by mouth three ti [...] Chronic Coronary atherosclerosis and other heart disease (3 sources) Atherosclerotic heart disease of [place] coronary artery without angina pectoris; Translations: [Atherosclerotic heart disease of [place] coronary artery with other forms of angina [...] Resolved: 2 Chronic Disorders of lipid metabolism (4 sources) Hyperlipidemia; Translations: [Hyperlipidemia, unspecified] 09-25-2023 Chronic Essential hypertension (7 sources) Essential (primary) hypertension; Translations: [ESSENTIAL PRIMARY HYPERTENSION] Onset: 2 Chronic Fluid and electrolyte disorders (17 sources) Hypokalemia; Translations: [Hypokalemia] Onset: 1 Resolved: 2 Episodic Genitourinary symptoms and ill-defined conditions (12 sources) Other microscopic hematuria; Translations: [Microscopic hematuria] [...] Chronic Other diseases of kidney and ureters (10 sources) Secondary hyperparathyroidism of renal origin; Translations: [Secondary hyperparathyroidism (of renal origin)] Onset: 1 Resolved: 2 Chronic Other non-traumatic joint disorders (20 sources) Arthralgia of the lower leg; Translations: [Right knee pain] Episodic Other nutritional; endocrine; and metabolic disorders (11 sources) 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 inflammatory arthritis and tophaceous disease; Translations: [Other abnormal blood chemistry] Onset: 1 Resolved: 2 Episodic Other nutritional; endocrine; and metabolic disorders (2 sources) Hyperuricemia; Translations: [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 inflammatory [...] Onset: 06-04-2022 Episodic Other lower respiratory disease (5 sources) Shortness of breath; Translations: [SHORTNESS OF [...] Value Interpretation Reference Range Facility Office Visiton 03-29-2024 Follow-up visit [id number] Claudia Estrella 1950 F Date Provider Department Center 03/29/2024 KARTHIK MACKAY [facility] Family History Problem Relation Age of Onset Heart attack Mother Heart failure Mother Heart attack Father Family Status - Relation Status Age at Mother Father Level of Service:53308 [place] OFFICE/OUTPATIENT ESTABLISHED LOW MDM 20 MIN Normal [facility] Albumin [Mass/volume] in Ser um or Plasmaon 01-01-2024 Albumin [Mass/Vol] 3.5 g/dL 2.9-4.[address] [facility] Erythrocyte distribution wid th Auto (RBC) [Ratio]on 01-01-2024 Erythrocyte distribution width (RBC) [Ratio] 15.2 % High 11.0-15.0 [facility] Estimated glomerular filtrat ion rate (GFR) non- Americanon 01-01-2024 GFR/1.73 sq M.predicted among non-blacks MDRD (S/P/Bld) [Vol rate/Area] 21 mL/min/{1.73_m2} Low >=60 [facility] Hematocrit Auto (Bld) [Volum e fraction]on 01-01-2024 Hematocrit (Bld) [Volume fraction] 32.4 % Low 36.0-48.0 [facility] Hemoglobin [Mass/volume] in Bloodon 01-01-2024 Hemoglobin (Bld) [Mass/Vol] 10.4 g/dL Low 12.0-16.0 [facility] IgA [Mass/volume] in Serum o r Plasmaon 01-01-2024 IgA [Mass/Vol] 580 mg/dL Abnormal 64-422 [facility] IgG [Mass/volume] in Serum o r Plasmaon 01-01-2024 IgG [Mass/Vol] 1132 mg/dL [id number] [facility] IgM [Mass/volume] in Serum o r Plasmaon 01-01-2024 IgM [Mass/Vol] 155 mg/dL 26-217 [facility] Immunofixation for Urineon 0 01-01-2024 Interpretation Immunofixation (U) [Interp] Comment . [facility] Comment on above: No monoclonality det ected.Performed at: [facility] [address] [id number] Director: Curry Rizzo PhD, Phone: [phone] Immunoglobulin light chains. kappa.free [Mass/volume] in Serumon 01-01-2024 Immunoglobulin light chains.kappa.free (S) [Mass/Vol] 75.5 mg/L Abnormal 3.3-19.4 [facility] Immunoglobulin light chains. kappa.free/Immunoglobulin light chains.lambda.free [Priscilla 01-01-2024 Immunoglobulin light chains.kappa.free/Immuno globulin light chains.lambda.free (S) [Mass ratio] 1.25 0.26-1.65 [facility] Comment on above: Performed at: [employer] [facility] [address] [id number] Director: Curry Rizzo PhD, Phone: [phone] Immunoglobulin light chains. lambda.free [Mass/volume] in Serum or Plasmaon 01-01-2024 Immunoglobulin light chains.lambda.free [Mass/Vol] 60.4 mg/L Abnormal 5.7-26.3 [facility] Iron binding capacity [Mass/ volume] in Serum or Plasmaon 01-01-2024 Iron binding capacity [Mass/Vol] 266.0 ug/dL 250.0-450.0 [facility] Iron saturation [Mass Fracti on] in Serum or Plasmaon 01-01-2024 Iron saturation [Mass fraction] 16.2 % [facility] Laboratory - Chemistry and C hemistry - challengeon 01-01-2024 Albumin [Mass/Vol] 3.3 g/dL Low 3.4-5.[address] [facility] Calcium [Mass/Vol] 9.2 mg/dL 8.5-10.[address] [facility] Chloride [Moles/Vol] 103 mmol/L 98-107 [facility] CO2 [Moles/Vol] 27.3 mmol/L 21.0-32.0 [facility] Creatinine [Mass/Vol] 2.28 mg/dL High 0.55-1.02 [facility] Ferritin [Mass/Vol] 123.0 ng/mL 8.0-252.0 [facility] GFR/1.73 sq M.predicted MDRD (S/P/Bld) [Vol rate/Area] 26 mL/min/{1.73_m2} Low >=60 [facility] Glucose [Mass/Vol] 139 mg/dL High 74-[address] [facility] Iron [Mass/Vol] 43.0 ug/dL Low 50.0-170.0 [facility] Magnesium [Mass/Vol] 2.3 mg/dL 1.8-2.4 [facility] Potassium [Moles/Vol] 4.4 mmol/L 3.5-5.1 [facility] Sodium [Moles/Vol] 138 mmol/L 136-[address] [facility] Urate [Mass/Vol] 5.9 mg/dL 2.6-6.0 [facility] Urea nitrogen [Mass/Vol] 50.0 mg/dL High 7.0-18.0 [facility] Urea nitrogen/Creatinine [Mass ratio] 21.9 mg/mg [facility] Laboratory - Urinalysison Protein (U) [Mass/Vol] 93.2 mg/dL High <=11.9 [facility] Leukocytes [#/volume] correc stacy for nucleated erythrocytes in Blood by Automated counon 01-01-2024 WBC corrected for nucl RBC Auto (Bld) [#/Vol] 8.9 10 3/uL 4.0-11.0 [facility] MCH Auto (RBC) [Entitic mass ]on 01-01-2024 MCH (RBC) [Entitic mass] 27.4 pg 26.7-34.0 [facility] MCHC Auto (RBC) [Mass/Vol]on 01-01-2024 MCHC (RBC) [Mass/Vol] 32.1 g/dL 29.9-35.2 [facility] MCV Auto (RBC) [Entitic vol] on 01-01-2024 MCV (RBC) [Entitic vol] 85.3 fL 81.0-99.0 F [facility] No Panel Informationon 12-31 25-Hydroxy Vitamin D Total 53.8 ng/mL [facility] Comment on above: <20 ng/mL Vit D defi cient20-<30 ng/mL Vit D [id number] ng/mL Vit D sufficient>100 ng/mL Potential Toxicity Parathyroid Hormone (Intact) 95 pg/mL Abnormal 15-65 [facility] Comment on above: Performed at: [address] [id number] Director: Curry Rizzo PhD, Phone: [phone] Phosphorus Level 4.0 mg/dL 2.6-4.7 [facility] Protein Electrophoresis M-Edward Not Observed g/dL Not Observed [facility] Protein Electrophoresis Note Comment . [facility] Comment on above: Protein electrophore sis scan will follow via computer,mail, or savings teller delivery. Urine Random Creatinine 88.24 mg/dL 20.00-300.0 0 [facility] Platelet mean volume Auto (B ld) [Entitic vol]on 01-01-2024 Platelet mean volume (Bld) [Entitic vol] 10.9 fL 9.5-13.5 [facility] Platelets Auto (Bld) [#/Vol] on 01-01-2024 Platelets (Bld) [#/Vol] 184 10 3/uL 150-450 [facility] Protein [Mass/volume] in Ser um or Plasmaon 01-01-2024 Protein [Mass/Vol] 7.0 g/dL 6.0-8.[address] [facility] RBC Auto (Bld) [#/Vol]on RBC (Bld) [#/Vol] 3.80 10 6/uL Low 4.20-5.40 [facility] Serum globulin measurement ( mass/volume)on 01-01-2024 Globulin (S) [Mass/Vol] 3.5 g/dL 2.2-3.9 [facility] Serum or plasma albumin/glob ulin mass ratioon 01-01-2024 Albumin/Globulin [Mass ratio] 1.1 {ratio} 0.7-1.7 [facility] Serum or plasma alpha 1 glob ulin measurement by electrophoresis (mass/volume)on 01-01-2024 Alpha 1 globulin Elph [Mass/Vol] 0.3 g/dL 0.0-0.4 [facility] Serum or plasma alpha 2 glob ulin measurement by electrophoresis (mass/volume)on 01-01-2024 Alpha 2 globulin Elph [Mass/Vol] 0.9 g/dL 0.4-1.0 [facility] Serum or plasma anion gap de terminationon 01-01-2024 Anion gap [Moles/Vol] 12.1 mmol/L [facility] Serum or plasma beta globuli n measurement by electrophoresis (mass/volume)on 01-01-2024 Beta globulin Elph [Mass/Vol] 1.1 g/dL 0.7-1.3 [facility] Serum or plasma gamma globul in measurement by electrophoresis (mass/volume)on 01-01-2024 Gamma globulin Elph [Mass/Vol] 1.3 g/dL 0.4-1.8 [facility] Serum or plasma immunoelectr ophoresis interpretationon 01-01-2024 Interpretation IEP [Interp] Comment . [facility] Comment on above: No monoclonality det ected. Urine protein/creatinine rat ioon 01-01-2024 Protein/Creatinine (U) [Ratio] 1.06 [facility] Office Visiton 09-04-2023 Follow-up visit [id number] Claudia Estrella 1950 Date Provider Department Center 09/04/2023 KARTHIK MACKAY Family History Problem Relation Age of Onset Heart attack Mother Heart failure Mother Heart attack Father Family Status - Relation Status Age at Mother Father Level of Service:53471 [place] OFFICE/OUTPATIENT ESTABLISHED LOW MDM 20 MIN Normal [facility] 36on 08-09-2023 36 I reviewed her echocardiogram from today and it shows evidence of significant volume overload. She needs to contact her locksmith for intensification of her diuretic therapy based on the results of the echocardiogram. If she is not responding to pills then we might need to admit her for intravenous diuretic therapy. Normal [facility] Telephoneon 08-09-2023 Telephone [id number] Claudia Estrella 1950 Provider Department Center 08/09/2023 KARTHIK MACKAY Family History Problem Relation Age of Onset Heart attack Mother Heart failure Mother Heart attack Father Family Status - Relation Status Age at Mother Father Normal [facility] Office Visiton 08-04-2023 Follow-up visit [id number] Claudia Estrella 1950 Provider Department Center 08/04/2023 KARTHIK MACKAY Family History Problem Relation Age of Onset Heart attack Mother Heart failure Mother Heart attack Father Family Status - Relation Status Age at Mother Father Level of Service:07541 [place] OFFICE/OUTPATIENT ESTABLISHED MOD MDM 30 MIN [facility] BNPon 10-26-2022 Natriuretic peptide B (Bld) [Mass/Vol] 1458.0 pg/mL Critically high <=900.0 [facility] Comment on above: Performed By: #### L IPID, TSH, FT3 #### [facility] [address] [address] [address] Andrey Hargrove CBC AUTO DIFFon 10-26-2022 BASO # 0.1 103/ul Normal 0.0-0.1 [facility] Comment on above: Performed By: #### V ITAD, FETIBC, FERR #### [facility] [address] [place] [address] Dr. Andrey Hargrove Basophils/100 WBC (Bld) 0.7 % Normal 0.2-2.0 [facility] Comment on above: Performed By: #### V ITAD, FETIBC, FERR #### [facility] [address] [place] [address] Dr. Andrey Hargrove EO # 0.4 103/ul Normal 0.0-0.7 [facility] Comment on above: Performed By: #### V ITAD, FETIBC, FERR #### [facility] [address] [place] [address] Dr. Andrey Hargrove Eosinophils/100 WBC (Bld) 4.6 % Normal 0.9-7.0 [facility] Comment on above: Performed By: #### V ITAD, FETIBC, FERR #### [facility] [address] [place] [address] Dr. Andrey Hargrove Erythrocyte distribution width (RBC) [Ratio] 13.7 % Normal 11.0-15.0 [facility] Comment on above: Performed By: #### V ITAD, FETIBC, FERR #### [facility] [address] [place] [address] Dr. Andrey Hargrove Hematocrit (Bld) [Volume fraction] 35.5 % Critically low 36.0-48.0 [facility] Comment on above: Performed By: #### V ITAD, FETIBC, FERR #### [facility] [address] [place] [address] Dr. Andrey Hargrove Hemoglobin (Bld) [Mass/Vol] 12.0 g/dL Normal 12.0-16.0 [facility] Comment on above: Performed By: #### V ITAD, FETIBC, FERR #### [facility] [address] [place] [address] Dr. Andrey Hargrove IG # 0.02 10e3/ul Normal 0.00-0.03 [facility] Comment on above: Performed By: #### V ITAD, FETIBC, FERR #### [facility] [address] [place] [address] Dr. Andrey Hargrove IG % 0.2 % Normal 0.0-0.5 [facility] Comment on above: Performed By: #### V ITAD, FETIBC, FERR #### [facility] [address] [place] [address] Dr. Andrey Hargrove LYMPH # 1.5 103/ul Normal 1.2-3.8 [facility] Comment on above: Performed By: #### V ITAD, FETIBC, FERR #### [facility] [address] [place] [address] Dr. Andrey Hargrove Lymphocytes/100 WBC (Bld) 18.1 % Critically low 20.5-60.0 [facility] Comment on above: Performed By: #### V ITAD, FETIBC, FERR #### [facility] [address] [place] [address] Dr. Andrey Hargrove MANUAL DIFF REQ NO Normal [facility] Comment on above: Performed By: #### V ITAD, FETIBC, FERR #### [facility] [address] [place] [address] Dr. Andrey Hargrove MCH (RBC) [Entitic mass] 29.3 pg Normal 26.7-34.0 [facility] Comment on above: Performed By: #### V ITAD, FETIBC, FERR #### [facility] [address] [place] [address] Dr. Andrey Hargrove MCHC (RBC) [Mass/Vol] 33.8 g/dL Normal 29.9-35.2 [facility] Comment on above: Performed By: #### V ITAD, FETIBC, FERR #### [facility] [address] [place] [address] Dr. Andrey Hargrove MCV (RBC) [Entitic vol] 86.8 fL Normal 81.0-99.0 [facility] Comment on above: Performed By: #### V ITAD, FETIBC, FERR #### [facility] [address] [place], [place] [id number] Dr. Andrey Hargrove MONO # 0.7 103/ul Normal 0.3-0.8 [facility] Comment on above: Performed By: #### V ITAD, FETIBC, FERR #### [facility] [address] [place] [address] Dr. Andrey Hargrove Monocytes/100 WBC (Bld) 7.9 % Normal 1.7-12.0 [facility] Comment on above: Performed By: #### V ITAD, FETIBC, FERR #### [facility] [address] [place] [address] Dr. Andrey Hargrove NEUT # 5.7 103/ul Normal 1.4-6.5 [facility] Comment on above: Performed By: #### V ITAD, FETIBC, FERR #### [facility] [address] [place] [address] Dr. Andrey Hargrove Neutrophils/100 WBC (Bld) 68.5 % Normal 43.0-75.0 [facility] Comment on above: Performed By: #### V ITAD, FETIBC, FERR #### [facility] [address] [place] [address] Dr. Andrey Hargrove Platelet mean volume (Bld) [Entitic vol] 10.4 fL Normal 9.5-13.5 [facility] Comment on above: Performed By: #### V ITAD, FETIBC, FERR #### [facility] [address] [place] [address] Dr. Andrey Hargrove PLT 204 103/ul Normal 150-450 [facility] Comment on above: Performed By: #### V ITAD, FETIBC, FERR #### [facility] [address] [place] [address] Dr. Andrey Hargrove RBC 4.09 106/ul Critically low 4.20-5.40 [facility] Comment on above: Performed By: #### V ITAD, FETIBC, FERR #### [facility] [address] [place] [address] Dr. Andrey Hargrove WBC 8.3 103/ul Normal 4.0-11.0 [facility] Comment on above: Performed By: #### V ITAD, FETIBC, FERR #### [facility] [address] [address] [address] Andrey Hargrove PROF CHEM 8 (BAS METB)on Anion gap [Moles/Vol] 11.1 mmol/L Normal [facility] Comment on above: Performed By: #### L IPID, TSH, FT3 #### [facility] [address] [address] [address] Andrey Hargrove Calcium [Mass/Vol] 9.2 mg/dL Normal 8.5-10.1 [facility] Comment on above: Performed By: #### L IPID, TSH, FT3 #### [facility] [address] [place] [address] Dr. Andrey Hargrove Chloride [Moles/Vol] 102 mmol/L Normal 98-107 [facility] Comment on above: Performed By: #### L IPID, TSH, FT3 #### [facility] [address] [place] [address] Dr. Andrey Hargrove CO2 [Moles/Vol] 31.2 mmol/L Normal 21.0-32.0 [facility] Comment on above: Performed By: #### L IPID, TSH, FT3 #### [facility] [address] [place] [address] Dr. Andrey Hargrove Creatinine [Mass/Vol] 1.79 mg/dL Critically high 0.55-1.02 [facility] Comment on above: Performed By: #### L IPID, TSH, FT3 #### [facility] [address] [place] [address] Dr. Andrey Hargrove EGFR-AF TOGOLESE 34 mL/min/1.73m2 Critically low >=60 [facility] Comment on above: Performed By: #### L IPID, TSH, FT3 #### [facility] [address] [address] [address] Andrey Hargrove EGFR-NON AF TOGOLESE 28 mL/min/1.73m2 Critically low >=60 [facility] Comment on above: Performed By: #### L IPID, TSH, FT3 #### [facility] [address] [place] [address] Dr. Andrey Hargrove Glucose [Mass/Vol] 148 mg/dL Critically high 74-106 [facility] Comment on above: Performed By: #### L IPID, TSH, FT3 #### [facility] [address] [place] [address] Dr. Andrey Hargrove Potassium [Moles/Vol] 3.3 mmol/L Critically low 3.5-5.1 [facility] Comment on above: Performed By: #### L IPID, TSH, FT3 #### [facility] [address] [place] [address] Dr. Andrey Hargrove Sodium [Moles/Vol] 141 mmol/L Normal 136-145 [facility] Comment on above: Performed By: #### L IPID, TSH, FT3 #### [facility] [address] [place] [address] Dr. Andrey Hargrove Urea nitrogen [Mass/Vol] 41.0 mg/dL Critically high 7.0-18 .0 [facility] Comment on above: Performed By: #### L IPID, TSH, FT3 #### [facility] [address] [place] [address] Dr. Andrey Hargrove Urea nitrogen/Creatinine [Mass ratio] 22.9 mg/mg Normal [facility] Comment on above: Performed By: #### L IPID, TSH, FT3 #### [facility] [address] [place] [address] Dr. Andrey Hargrove PTH INTACTon 08-24-2022 PTH, Intact 44 pg/mL Normal 15-65 [facility] Comment on above: Performed By: #### V ITSHAQ, FETIBC, FERR #### [facility] [address] [place] [id number] Dr. Andrey Hargrove US THYROIDon 08-24-2022 US [...] RENETTA RENEE Date: 2022-08-24 16:16 Normal [facility] FERRITINon 08-23-2022 Ferritin [Mass/Vol] 114.0 ng/mL Normal 8.0-252.0 [facility] Comment on above: Performed By: #### V ITAD, FETIBC, FERR #### [facility] [address] [place] [address] Dr. Andrey Hargrove HEMOGRAM AND PLATELon 2022 Hematocrit (Bld) [Volume fraction] 34.9 % Critically low 36.0-48.0 [facility] Comment on above: Performed By: #### V ITAD, FETIBC, FERR #### [facility] [address] [address] [address] Andrey Hargrove Hemoglobin (Bld) [Mass/Vol] 11.8 g/dL Critically low 12.0-16.0 [facility] Comment on above: Performed By: #### V ITAD, FETIBC, FERR #### [facility] [address] [address] [address] Andrey Hargrove MCH (RBC) [Entitic mass] 28.6 pg Normal 26.7-34.0 [facility] Comment on above: Performed By: #### V ITAD, FETIBC, FERR #### [facility] [address] [place] [address] Dr. Andrey Hargrove MCHC (RBC) [Mass/Vol] 33.8 g/dL Normal 29.9-35.2 [facility] Comment on above: Performed By: #### V ITAD, FETIBC, FERR #### [facility] [address] [place] [address] Dr. Andrey Hargrove MCV (RBC) [Entitic vol] 84.7 fL Normal 81.0-99.0 [facility] Comment on above: Performed By: #### V ITAD, FETIBC, FERR #### [facility] [address] [place] [address] Dr. Andrey Hargrove PLT 215 103/ul Normal 150-450 [facility] Comment on above: Performed By: #### V ITAD, FETIBC, FERR #### [facility] [address] [place] [address] Dr. Andrey Hargrove RBC 4.12 106/ul Critically low 4.20-5.40 [facility] Comment on above: Performed By: #### V ITAD, FETIBC, FERR #### [facility] [address] [place] [address] Dr. Andrey Hargrove WBC 9.2 103/ul Normal 4.0-11.0 [facility] Comment on above: Performed By: #### V ITAD, FETIBC, FERR #### [facility] [address] [place] [address] Dr. Andrey Hargrove IRON AND TIBCon 08-23-2022 % SATURATION 15.4 % Normal [facility] Comment on above: Performed By: #### V ITAD, FETIBC, FERR #### [facility] [address] [place] [address] Dr. Andrey Hargrove Iron [Mass/Vol] 44.0 ug/dL Critically low 50.0-170.0 [facility] Comment on above: Performed By: #### V ITAD, FETIBC, FERR #### [facility] [address] [place] [address] Dr. Andrey Hargrove TIBC DIRECT 286.0 ug/dL Normal 250.0-450.0 [facility] Comment on above: Performed By: #### V ITAD, FETIBC, FERR #### [facility] [address] [place] [address] Dr. Andrey Hargrove MAGNESIUMon 08-23-2022 Magnesium [Mass/Vol] 2.1 mg/dL Normal 1.8-2.4 [facility] Comment on above: Performed By: #### L IPID, TSH, FT3 #### [facility] [address] [address] [address] Andrey Hargrove RENAL FUNCTION PANELon 08-23 Albumin [Mass/Vol] 3.3 g/dL Critically low 3.4-5.0 [facility] Comment on above: Performed By: #### L IPID, TSH, FT3 #### [facility] [address] [place] [address] Dr. Andrey Hargrove Calcium [Mass/Vol] 9.4 mg/dL Normal 8.5-10.1 [facility] Comment on above: Performed By: #### L IPID, TSH, FT3 #### [facility] [address] [place] [address] Dr. Andrey Hargrove Chloride [Moles/Vol] 103 mmol/L Normal 98-107 [facility] Comment on above: Performed By: #### L IPID, TSH, FT3 #### [facility] [address] [place] [address] Dr. Andrey Hargrove CO2 [Moles/Vol] 26.8 mmol/L Normal 21.0-32.0 [facility] Comment on above: Performed By: #### L IPID, TSH, FT3 #### [facility] [address] [place] [address] Dr. Andrey Hargrove Creatinine [Mass/Vol] 1.94 mg/dL Critically high 0.55-1.02 [facility] Comment on above: Performed By: #### L IPID, TSH, FT3 #### [facility] [address] [address] [address] Andrey Hargrove EGFR-AF TOGOLESE 31 mL/min/1.73m2 Critically low >=60 [facility] Comment on above: Performed By: #### L IPID, TSH, FT3 #### [facility] [address] [address] [address] Andrey Hargrove EGFR-NON AF TOGOLESE 25 mL/min/1.73m2 Critically low >=60 [facility] Comment on above: Performed By: #### L IPID, TSH, FT3 #### [facility] [address] [place] [address] Dr. Andrey Hargrove Glucose [Mass/Vol] 166 mg/dL Critically high 74-106 [facility] Comment on above: Performed By: #### L IPID, TSH, FT3 #### [facility] [address] [place] [address] Dr. Andrey Hargrove Phosphate [Mass/Vol] 4.6 mg/dL Normal 2.6-4.7 [facility] Comment on above: Performed By: #### L IPID, TSH, FT3 #### [facility] [address] [place] [address] Dr. Andrey Hargrove Potassium [Moles/Vol] 4.3 mmol/L Normal 3.5-5.1 [facility] Comment on above: Performed By: #### L IPID, TSH, FT3 #### [facility] [address] [address] [address] Andrey Hargrove Sodium [Moles/Vol] 137 mmol/L Normal 136-145 [facility] Comment on above: Performed By: #### L IPID, TSH, FT3 #### [facility] [address] [place] [address] Dr. Andrey Hargrove Urea nitrogen [Mass/Vol] 39.0 mg/dL Critically high 7.0-18 .0 [facility] Comment on above: Performed By: #### L IPID, TSH, FT3 #### [facility] [address] [place] [address] Dr. Andrey Hargrove UA RANDOM W/MICROSCOPICon BACTERIA NONE SEEN Normal NONE SEEN [facility] Comment on above: Performed By: #### V ITAD, FETIBC, FERR #### [facility] [address] [place] [address] Dr. Andrey Hargrove Bilirubin Ql (U) Negative Normal NEGATIVE [facility] Comment on above: Performed By: #### V ITAD, FETIBC, FERR #### [facility] [address] [place] [address] Dr. Andrey Hargrove CAST NONE SEEN Normal NONE SEEN [facility] Comment on above: Performed By: #### V ITAD, FETIBC, FERR #### [facility] [address] [place] [address] Dr. Andrey Hargrove Clarity (U) CLEAR Normal CLEAR [facility] Comment on above: Performed By: #### V ITAD, FETIBC, FERR #### [facility] [address] [place] [address] Dr. Andrey Hargrove Color (U) LT. YELLOW Normal YELLOW [facility] Comment on above: Performed By: #### V ITAD, FETIBC, FERR #### [facility] [address] [place] [address] Dr. Andrey Hargrove Crystals LM Nom (Urine sed) NONE SEEN Normal NONE SEEN [facility] Comment on above: Performed By: #### V ITAD, FETIBC, FERR #### [facility] [address] [place] [address] Dr. Andrey Hargrove Epithelial cells LM Ql (Urine sed) RARE Normal NONE SEEN /RARE [facility] Comment on above: Performed By: #### V ITAD, FETIBC, FERR #### [facility] [address] [place] [address] Dr. Andrey Hargrove Glucose Ql (U) Negative Normal NEGATIVE [facility] Comment on above: Performed By: #### V ITAD, FETIBC, FERR #### [facility] [address] [place] [address] Dr. Andrey Hargrove Hemoglobin Ql (U) Negative Normal NEGATIVE [facility] Comment on above: Performed By: #### V ITAD, FETIBC, FERR #### [facility] [address] [place] [address] Dr. Andrey Hargrove Ketones Ql (U) Negative Normal NEGATIVE [facility] Comment on above: Performed By: #### V ITAD, FETIBC, FERR #### [facility] [address] [place] [address] Dr. Andrey Hargrove LEUKOCYTES Negative Normal NEGATIVE [facility] Comment on above: Performed By: #### V ITAD, FETIBC, FERR #### [facility] [address] [place] [address] Dr. Andrey Hargrove MUCOUS NONE SEEN Normal NONE SEEN [facility] Comment on above: Performed By: #### V ITAD, FETIBC, FERR #### [facility] [address] [place] [address] Dr. Andrey Hargrove Nitrite Ql (U) Negative Normal NEGATIVE [facility] Comment on above: Performed By: #### V ITAD, FETIBC, FERR #### [facility] [address] [place] [address] Dr. Andrey Hargrove pH (U) 6.5 [pH] Normal 5-9 [facility] Comment on above: Performed By: #### V ITAD, FETIBC, FERR #### [facility] [address] [place] [address] Dr. Andrey Hargrove RBC NONE SEEN Abnormal 0-2 [facility] Comment on above: Performed By: #### V ITAD, FETIBC, FERR #### [facility] [address] [place] [address] Dr. Andrey Hargrove SPEC GRAVITY 1.010 Normal 1.005-<=1.02 5 [facility] Comment on above: Performed By: #### V ITAD, FETIBC, FERR #### [facility] [address] [place] [address] Dr. Andrey Hargrove UA PROTEIN 30 mg/dl Abnormal NEGATIVE/ TRACE [facility] Comment on above: Performed By: #### V ITAD, FETIBC, FERR #### [facility] [address] [place] [address] Dr. Andrey Hargrove Urobilinogen Qn (U) 0.2 {Kelly'U}/dL Normal 0.2 - 1. 0 [facility] Comment on above: Performed By: #### V ITAD, FETIBC, FERR #### [facility] [address] [place] [address] Dr. Andrey Hargrove WBC NONE SEEN Normal NONE SEEN [facility] Comment on above: Performed By: #### V ITAD, FETIBC, FERR #### [facility] [address] [place] [address] Dr. Andrey Hargrove URIC ACID SERUMon 08-23-2022 Urate [Mass/Vol] 5.8 mg/dL Normal 2.6-6.0 [facility] Comment on above: Performed By: #### L IPID, TSH, FT3 #### [facility] [address] [place] [address] Dr. Andrey Hargrove VITAMIN D 25 OHon 08-23-2022 VIT D 25-OH 69.0 ng/mL Normal [facility] Comment on above: Performed By: #### V ITAD, FETIBC, FERR #### [facility] [address] [place] [address] Dr. Andrey Hargrove VIT D RANGES SEE BELOW Normal [facility] Comment on above: Result Comment: <20 ng/mL Vit D deficient 20 - <30 ng/mL Vit D insufficient 30 - 100 ng/mL Vit D sufficient >100 ng/mL Potential Toxicity Performed By: #### V ITAD, FETIBC, FERR #### [facility] [address] [place] [address] Dr. Andrey Hargrove ECHOCARDIO M/2D COMPLETEon 1 08-14-2021 ECHOCARDIO M/2D COMPLETE Patient: CLAUDIA ESTRELLA Exam Date: 06/13/2022 : 1950 Gender:F Ordering : DR KARTHIK FISH M.D. Admission #: [id number] Family : Order #: [id number] CLICK HERE TO VIEW EXAM ECHOCARDIOGRAM REPORT [...] 3.13 cm Aortic Valve AoV Area (Peak Rafeal): 1.25 cm2, 1.25 cm2 AoV Area (VTI): [...] Fish M.D. on 06/14/2022 at 17:50 Normal [facility] BNPon 06-10-2022 Natriuretic peptide B (Bld) [Mass/Vol] 4197.0 pg/mL Critically high <=900.0 [facility] Comment on above: Performed By: #### L IPID, TSH, FT3 #### [facility] [address] [place] [address] Dr. Andrey Hargrove PROF CHEM 8 (BAS METB)on Anion gap [Moles/Vol] 10.4 mmol/L Normal [facility] Comment on above: Performed By: #### V ITAD, FETIBC, FERR #### [facility] [address] [place] [address] Dr. Andrey Hargrove Calcium [Mass/Vol] 9.4 mg/dL Normal 8.5-10.1 [facility] Comment on above: Performed By: #### V ITAD, FETIBC, FERR #### [facility] [address] [place] [address] Dr. Andrey Hargrove Chloride [Moles/Vol] 99 mmol/L Normal 98-107 [facility] Comment on above: Performed By: #### V ITAD, FETIBC, FERR #### [facility] [address] [place] [address] Dr. Andrey Hargrove CO2 [Moles/Vol] 33.8 mmol/L Critically high 21.0-32.0 [facility] Comment on above: Performed By: #### V ITAD, FETIBC, FERR #### [facility] [address] [place] [address] Dr. Andrey Hargrove Creatinine [Mass/Vol] 2.09 mg/dL Critically high 0.55-1.02 [facility] Comment on above: Performed By: #### V ITAD, FETIBC, FERR #### [facility] [address] [place] [address] Dr. Andrey Hargrove EGFR-AF TOGOLESE 28 mL/min/1.73m2 Critically low >=60 [facility] Comment on above: Performed By: #### V ITAD, FETIBC, FERR #### [facility] [address] [place] [address] Dr. Andrey Hargrove EGFR-NON AF TOGOLESE 23 mL/min/1.73m2 Critically low >=60 [facility] Comment on above: Performed By: #### V ITAD, FETIBC, FERR #### [facility] [address] [place] [address] Dr. Andrey Hargrove Glucose [Mass/Vol] 75 mg/dL Normal 74-106 [facility] Comment on above: Performed By: #### V ITAD, FETIBC, FERR #### [facility] [address] [place] [address] Dr. nAdrey Hargrove Potassium [Moles/Vol] 3.2 mmol/L Critically low 3.5-5.1 [facility] Comment on above: Performed By: #### V ITAD, FETIBC, FERR #### [facility] [address] [address] [address] Andrey Hargrove Sodium [Moles/Vol] 140 mmol/L Normal 136-145 [facility] Comment on above: Performed By: #### V ITAD, FETIBC, FERR #### [facility] [address] [place] [address] Dr. Andrey Hargrove Urea nitrogen [Mass/Vol] 61.0 mg/dL Critically high 7.0-18 .0 [facility] Comment on above: Performed By: #### V ITAD, FETIBC, FERR #### [facility] [address] [place] [address] Dr. Andrey Hargrove Urea nitrogen/Creatinine [Mass ratio] 29.2 mg/mg Normal [facility] Comment on above: Performed By: #### V ITAD, FETIBC, FERR #### [facility] [address] [place] [address] Dr. Andrey Hargrove BNPon 06-02-2022 Natriuretic peptide B (Bld) [Mass/Vol] 9365.0 pg/mL Critically high <=900.0 [facility] Comment on above: Performed By: #### V ITAD, FETIBC, FERR #### [facility] [address] [place] [address] Dr. Andrey Hargrove PROF CHEM 8 (BAS METB)on Anion gap [Moles/Vol] 10.7 mmol/L Normal [facility] Comment on above: Performed By: #### V ITAD, FETIBC, FERR #### [facility] [address] [place] [address] Dr. Andrey Hargrove Calcium [Mass/Vol] 9.1 mg/dL Normal 8.5-10.1 [facility] Comment on above: Performed By: #### V ITAD, FETIBC, FERR #### [facility] [address] [place] [address] Dr. Andrey Hargrove Chloride [Moles/Vol] 98 mmol/L Normal 98-107 [facility] Comment on above: Performed By: #### V ITAD, FETIBC, FERR #### [facility] [address] [address] [address] Andrey Hargrove CO2 [Moles/Vol] 29.4 mmol/L Normal 21.0-32.0 [facility] Comment on above: Performed By: #### V ITAD, FETIBC, FERR #### [facility] [address] [address] [address] Andrey Hargrove Creatinine [Mass/Vol] 2.44 mg/dL Critically high 0.55-1.02 [facility] Comment on above: Performed By: #### V ITAD, FETIBC, FERR #### [facility] [address] [place] [address] Dr. Andrey Hargrove EGFR-AF TOGOLESE 24 mL/min/1.73m2 Critically low >=60 [facility] Comment on above: Performed By: #### V ITAD, FETIBC, FERR #### [facility] [address] [place] [address] Dr. Andrey Hargrove EGFR-NON AF TOGOLESE 20 mL/min/1.73m2 Critically low >=60 [facility] Comment on above: Performed By: #### V ITAD, FETIBC, FERR #### [facility] [address] [place] [address] Dr. Andrey Hargrove Glucose [Mass/Vol] 135 mg/dL Critically high 74-106 [facility] Comment on above: Performed By: #### V ITAD, FETIBC, FERR #### [facility] [address] [place] [address] Dr. Andrey Hargrove Potassium [Moles/Vol] 4.1 mmol/L Normal 3.5-5.1 [facility] Comment on above: Performed By: #### V ITAD, FETIBC, FERR #### [facility] [address] [place] [address] Dr. Andrey Hargrove Sodium [Moles/Vol] 134 mmol/L Critically low 136-145 [facility] Comment on above: Performed By: #### V ITAD, FETIBC, FERR #### [facility] [address] [address] [address] Andrey Hargrove Urea nitrogen [Mass/Vol] 81.0 mg/dL Critically high 7.0-18 .0 [facility] Comment on above: Performed By: #### V ITAD, FETIBC, FERR #### [facility] [address] [address] [address] Andrey Hargrove Urea nitrogen/Creatinine [Mass ratio] 33.2 mg/mg Normal [facility] Comment on above: Performed By: #### V ITAD, FETIBC, FERR #### [facility] [address] [address] [address] Andrey Hargrove XR ELBOW RT MIN 3 VIEWSon XR ELBOW RT MIN 3 VIEWS EXAM: XR ELBOW R T MIN 3 VIEWS HISTORY: Pain of right [...] BETSY LAZARO Date: 2022-06-01 17:24 Normal [facility] RENAL FUNCTION PANELon 05-27 Albumin [Mass/Vol] 3.4 g/dL Normal 3.4-5.0 [facility] Comment on above: Performed By: #### L IPID, TSH, FT3 #### [facility] [address] [address] [address] Andrey Hargrove Calcium [Mass/Vol] 9.1 mg/dL Normal 8.5-10.1 [facility] Comment on above: Performed By: #### L IPID, TSH, FT3 #### [facility] [address] [address] [address] Andrey Hargrove Chloride [Moles/Vol] 99 mmol/L Normal 98-107 [facility] Comment on above: Performed By: #### L IPID, TSH, FT3 #### [facility] [address] [address] [address] Andrey Hargrove CO2 [Moles/Vol] 30.9 mmol/L Normal 21.0-32.0 [facility] Comment on above: Performed By: #### L IPID, TSH, FT3 #### [facility] [address] [place] [address] Dr. Andrey Hargrove Creatinine [Mass/Vol] 2.24 mg/dL Critically high 0.55-1.02 [facility] Comment on above: Performed By: #### L IPID, TSH, FT3 #### [facility] [address] [address] [address] Andrey Hargrove EGFR-AF TOGOLESE 26 mL/min/1.73m2 Critically low >=60 [facility] Comment on above: Performed By: #### L IPID, TSH, FT3 #### [facility] [address] [place] [address] Dr. Andrey Hargrove EGFR-NON AF TOGOLESE 22 mL/min/1.73m2 Critically low >=60 [facility] Comment on above: Performed By: #### L IPID, TSH, FT3 #### [facility] [address] [address] [address] Andrey Hargrove Glucose [Mass/Vol] 94 mg/dL Normal 74-106 [facility] Comment on above: Performed By: #### L IPID, TSH, FT3 #### [facility] [address] [address] [address] Andrey Hargrove Phosphate [Mass/Vol] 4.7 mg/dL Normal 2.6-4.7 [facility] Comment on above: Performed By: #### L IPID, TSH, FT3 #### [facility] [address] [address] [address] Andrey Hargrove Potassium [Moles/Vol] 3.5 mmol/L Normal 3.5-5.1 [facility] Comment on above: Performed By: #### L IPID, TSH, FT3 #### [facility] [address] [place] [address] Dr. Andrey Hargrove Sodium [Moles/Vol] 136 mmol/L Normal 136-145 [facility] Comment on above: Performed By: #### L IPID, TSH, FT3 #### [facility] [address] [place] [address] Dr. Andrey Hargrove Urea nitrogen [Mass/Vol] 72.0 mg/dL Critically high 7.0-18 .0 [facility] Comment on above: Performed By: #### L IPID, TSH, FT3 #### [facility] [address] [address] [address] Andrey Hargrove PTH INTACTon 05-24-2022 PTH, Intact 24 pg/mL Normal 15-65 [facility] Comment on above: Performed By: #### L IPID, TSH, FT3 #### [facility] [address] [place] [address] Dr. Andrey Hargrove FERRITINon 05-23-2022 Ferritin [Mass/Vol] 190.0 ng/mL Normal 8.0-252.0 [facility] Comment on above: Performed By: #### L IPID, TSH, FT3 #### [facility] [address] [place] [address] Dr. Andrey Hargrove FREE T3on 05-23-2022 FREE T3 1.96 pg/mlL Critically low 2.18-3.98 [facility] Comment on above: Performed By: #### L IPID, TSH, FT3 #### [facility] [address] [place] [address] Dr. Andrey Hargrove FREE T4on 05-23-2022 Free T4 [Mass/Vol] 1.33 ng/dL Normal 0.76-1.46 [facility] Comment on above: Performed By: #### L IPID, TSH, FT3 #### [facility] [address] [place] [address] Dr. Andrey Hargrove HEMOGRAM AND PLATELon 2021 Hematocrit (Bld) [Volume fraction] 30.6 % Critically low 36.0-48.0 [facility] Comment on above: Performed By: #### V ITAD, FETIBC, FERR #### [facility] [address] [place] [address] Dr. Andrey Hargrove Hemoglobin (Bld) [Mass/Vol] 10.4 g/dL Critically low 12.0-16.0 [facility] Comment on above: Performed By: #### V ITAD, FETIBC, FERR #### [facility] [address] [place] [address] Dr. Andrey Hargrove MCH (RBC) [Entitic mass] 28.6 pg Normal 26.7-34.0 [facility] Comment on above: Performed By: #### V ITAD, FETIBC, FERR #### [facility] [address] [place] [address] Dr. Andrey Hargrove MCHC (RBC) [Mass/Vol] 34.0 g/dL Normal 29.9-35.2 [facility] Comment on above: Performed By: #### V ITAD, FETIBC, FERR #### [facility] [address] [place] [address] Dr. Andrey Hargrove MCV (RBC) [Entitic vol] 84.1 fL Normal 81.0-99.0 [facility] Comment on above: Performed By: #### V ITAD, FETIBC, FERR #### [facility] [address] [place] [address] Dr. Andrey Hargrove PLT 179 103/ul Normal 150-450 [facility] Comment on above: Performed By: #### V ITAD, FETIBC, FERR #### [facility] [address] [place] [address] Dr. Andrey Hargrove RBC 3.64 106/ul Critically low 4.20-5.40 [facility] Comment on above: Performed By: #### V ITAD, FETIBC, FERR #### [facility] [address] [address] [address] Andrey Hargrove WBC 9.5 103/ul Normal 4.0-11.0 [facility] Comment on above: Performed By: #### V ITAD, FETIBC, FERR #### [facility] [address] [address] [address] Andrey Hargrove IRON AND TIBCon 05-23-2022 % SATURATION 15.9 % Normal [facility] Comment on above: Performed By: #### L IPID, TSH, FT3 #### [facility] [address] [place] [address] Dr. Andrey Hargrove Iron [Mass/Vol] 44.0 ug/dL Critically low 50.0-170.0 [facility] Comment on above: Performed By: #### L IPID, TSH, FT3 #### [facility] [address] [address] [address] Andrey Hargrove TIBC DIRECT 276.0 ug/dL Normal 250.0-450.0 [facility] Comment on above: Performed By: #### L IPID, TSH, FT3 #### [facility] [address] [place] [address] Dr. Andrey Hargrove LIPID PROFILEon 05-23-2022 CHOL-HDL RATIO NORM SEE BELOW Normal [facility] Comment on above: Result Comment: 3.3 - 4.4 LOW RISK 4.4 - 7.1 AVERAGE RISK 7.1 - 11.0 MODERATE RISK >11.0 HIGH RISK Performed By: #### L IPID, TSH, FT3 #### [facility] [address] [address] [address] Andrey Hargrove Cholesterol [Mass/Vol] 129 mg/dL Normal <=200 [facility] Comment on above: Performed By: #### L IPID, TSH, FT3 #### [facility] [address] [place] [address] Dr. Andrey Hargrove Cholesterol in HDL [Mass/Vol] 55 mg/dL Normal 40-60 [facility] Comment on above: Performed By: #### L IPID, TSH, FT3 #### [facility] [address] [address] [address] Andrey Hargrove Cholesterol in LDL [Mass/Vol] 59.6 mg/dL Normal [facility] Comment on above: Performed By: #### L IPID, TSH, FT3 #### [facility] [address] [address] [address] Andrey Hargrove Cholesterol.total/Choles terol in HDL [Mass ratio] 2.3 {ratio} Normal [facility] Comment on above: Performed By: #### L IPID, TSH, FT3 #### [facility] [address] [place] [address] Dr. Andrey Hargrove HDL NORMAL > or = 60 mg/dl - LOW CARDIOVASCULAR RISK <40 mg/dl - HIGH CARDIOVASCULAR RISK Normal [facility] Comment on above: Performed By: #### L IPID, TSH, FT3 #### [facility] [address] [address] [address] Andrey Hargrove LDL CALC NORMAL SEE BELOW Normal [facility] Comment on above: Result Comment: <100 mg/dl OPTIMAL 100 - 129 mg/dl NEAR OR ABOVE OPTIMAL 130 - 159 mg/dl BORDERLINE HIGH 160 - 189 mg/dl HIGH >190 mg/dl VERY HIGH Performed By: #### L IPID, TSH, FT3 #### [facility] [address] [address] [address] Andrey Hargrove Triglyceride [Mass/Vol] 72 mg/dL Normal <=150 [facility] Comment on above: Performed By: #### L IPID, TSH, FT3 #### [facility] [address] [address] [address] Andrey Hargrove VLDL CALC 14.4 mg/dL Normal [facility] Comment on above: Performed By: #### L IPID, TSH, FT3 #### [facility] [address] [place] [address] Dr. Andrey Hargrove MAGNESIUMon 05-23-2022 Magnesium [Mass/Vol] 2.2 mg/dL Normal 1.8-2.4 [facility] Comment on above: Performed By: #### L IPID, TSH, FT3 #### [facility] [address] [place] [address] Dr. Andrey Hargrove RENAL FUNCTION PANELon 05-23 Albumin [Mass/Vol] 3.5 g/dL Normal 3.4-5.0 [facility] Comment on above: Performed By: #### L IPID, TSH, FT3 #### [facility] [address] [place] [address] Dr. Andrey Hargrove Calcium [Mass/Vol] 10.0 mg/dL Normal 8.5-10.1 [facility] Comment on above: Performed By: #### L IPID, TSH, FT3 #### [facility] [address] [place] [address] Dr. Andrey Hargrove Chloride [Moles/Vol] 98 mmol/L Normal 98-107 [facility] Comment on above: Performed By: #### L IPID, TSH, FT3 #### [facility] [address] [place] [address] Dr. Andrey Hargrove CO2 [Moles/Vol] 34.3 mmol/L Critically high 21.0-32.0 [facility] Comment on above: Performed By: #### L IPID, TSH, FT3 #### [facility] [address] [place] [address] Dr. Andrey Hargrove Creatinine [Mass/Vol] 2.24 mg/dL Critically high 0.55-1.02 [facility] Comment on above: Performed By: #### L IPID, TSH, FT3 #### [facility] [address] [place] [address] Dr. Andrey Hargrove EGFR-AF TOGOLESE 26 mL/min/1.73m2 Critically low >=60 [facility] Comment on above: Performed By: #### L IPID, TSH, FT3 #### [facility] [address] [place] [address] Dr. Andrey Hargrove EGFR-NON AF TOGOLESE 22 mL/min/1.73m2 Critically low >=60 [facility] Comment on above: Performed By: #### L IPID, TSH, FT3 #### [facility] [address] [address] [address] Andrey Hargrove Glucose [Mass/Vol] 123 mg/dL Critically high 74-106 [facility] Comment on above: Performed By: #### L IPID, TSH, FT3 #### [facility] [address] [place] [address] Dr. Andrey Hargrove Phosphate [Mass/Vol] 5.2 mg/dL Critically high 2.6-4.7 [facility] Comment on above: Performed By: #### L IPID, TSH, FT3 #### [facility] [address] [place] [address] Dr. Andrey Hargrove Potassium [Moles/Vol] 3.0 mmol/L Critically low 3.5-5.1 [facility] Comment on above: Performed By: #### L IPID, TSH, FT3 #### [facility] [address] [address] [address] Andrey Hargrove Sodium [Moles/Vol] 137 mmol/L Normal 136-145 [facility] Comment on above: Performed By: #### L IPID, TSH, FT3 #### [facility] [address] [place] [address] Dr. Andrey Hargrove Urea nitrogen [Mass/Vol] 80.0 mg/dL Critically high 7.0-18 .0 [facility] Comment on above: Performed By: #### L IPID, TSH, FT3 #### [facility] [address] [place] [address] Dr. Andrey Hargrove TSHon 05-23-2022 TSH 4.652 uIU/mL Critically high 0.358-3.740 [facility] Comment on above: Performed By: #### L IPID, TSH, FT3 #### [facility] [address] [place] [address] Dr. Andrey Hargrove UA RANDOM W/MICROSCOPICon BACTERIA NONE SEEN Normal NONE SEEN [facility] Comment on above: Performed By: #### V ITAD, FETIBC, FERR #### [facility] [address] [place] [address] Dr. Andrey Hargrove Bilirubin Ql (U) Negative Normal NEGATIVE [facility] Comment on above: Performed By: #### V ITAD, FETIBC, FERR #### [facility] [address] [address] [address] Andrey Hargrove CAST NONE SEEN Normal NONE SEEN [facility] Comment on above: Performed By: #### V ITAD, FETIBC, FERR #### [facility] [address] [place] [address] Dr. Andrey Hargrove Clarity (U) CLEAR Normal CLEAR [facility] Comment on above: Performed By: #### V ITAD, FETIBC, FERR #### [facility] [address] [place] [address] Dr. Andrey Hargrove Color (U) LT. YELLOW Normal YELLOW [facility] Comment on above: Performed By: #### V ITAD, FETIBC, FERR #### [facility] [address] [place] [address] Dr. Andrey Hargrove Crystals LM Nom (Urine sed) NONE SEEN Normal NONE SEEN [facility] Comment on above: Performed By: #### V ITAD, FETIBC, FERR #### [facility] [address] [place] [address] Dr. Andrey Hargrove Epithelial cells LM Ql (Urine sed) FEW Abnormal NONE SEEN /RARE [facility] Comment on above: Performed By: #### V ITAD, FETIBC, FERR #### [facility] [address] [place] [address] Dr. Andrey Hargrove Glucose Ql (U) Negative Normal NEGATIVE [facility] Comment on above: Performed By: #### V ITAD, FETIBC, FERR #### [facility] [address] [place] [address] Dr. Andrey Hargrove Hemoglobin Ql (U) TRACE-INTACT Abnormal NEGATIVE [facility] Comment on above: Performed By: #### V ITAD, FETIBC, FERR #### [facility] [address] [place] [address] Dr. Andrey Hargrove Ketones Ql (U) Negative Normal NEGATIVE [facility] Comment on above: Performed By: #### V ITAD, FETIBC, FERR #### [facility] [address] [place] [address] Dr. Andrey Hargrove LEUKOCYTES SMALL Abnormal NEGATIVE [facility] Comment on above: Performed By: #### V ITAD, FETIBC, FERR #### [facility] [address] [place] [address] Dr. Andrey Hargrove MUCOUS NONE SEEN Normal NONE SEEN [facility] Comment on above: Performed By: #### V ITAD, FETIBC, FERR #### [facility] [address] [place] [address] Dr. Andrey Hargrove Nitrite Ql (U) Negative Normal NEGATIVE [facility] Comment on above: Performed By: #### V ITAD, FETIBC, FERR #### [facility] [address] [place] [address] Dr. Andrey Hargrove pH (U) 5.5 [pH] Normal 5-9 [facility] Comment on above: Performed By: #### V ITAD, FETIBC, FERR #### [facility] [address] [place] [address] Dr. Andrey Hargrove RBC 0-2 Normal 0-2 [facility] Comment on above: Performed By: #### V ITAD, FETIBC, FERR #### [facility] [address] [place] [address] Dr. Andrey Hargrove SPEC GRAVITY 1.010 Normal 1.005-<=1.02 5 [facility] Comment on above: Performed By: #### V ITAD, FETIBC, FERR #### [facility] [address] [place] [address] Dr. Andrey Hargrove UA PROTEIN TRACE Normal NEGATIVE/ TRACE [facility] Comment on above: Performed By: #### V ITAD, FETIBC, FERR #### [facility] [address] [place] [address] Dr. Andrey Hargrove Urobilinogen Qn (U) 0.2 {Kelly'U}/dL Normal 0.2 - 1. 0 [facility] Comment on above: Performed By: #### V ITAD, FETIBC, FERR #### [facility] [address] [place] [address] Dr. Andrey Hargrove WBC 0-2 Abnormal NONE SEEN [facility] Comment on above: Performed By: #### V ITAD, FETIBC, FERR #### [facility] [address] [place] [address] Dr. Andrey Hargrove URIC ACID SERUMon 05-23-2022 Urate [Mass/Vol] 7.4 mg/dL Critically high 2.6-6.0 [facility] Comment on above: Performed By: #### L IPID, TSH, FT3 #### [facility] [address] [place] [address] Dr. Andrey Hargrove URINE T PROTEIN CREAT RATIOo n 05-23-2022 Protein (U) [Mass/Vol] 39.9 mg/dL Critically high <=12.0 [facility] Comment on above: Performed By: #### U RTPCR #### [facility] [address] [place] [address] Dr. Andrey Hargrove UR PROT CREAT RAT 0.64 Normal [facility] Comment on above: Performed By: #### U RTPCR #### [facility] [address] [place] [address] Dr. Andrey Hargrove URINE CREAT 62.30 mg/dL Normal 20.00-300.00 [facility] Comment on above: Performed By: #### U RTPCR #### [facility] [address] [place] [address] Dr. Andrey Hargrove VITAMIN D 25 OHon 05-23-2022 VIT D 25-OH 90.7 ng/mL Normal [facility] Comment on above: Performed By: #### L IPID, TSH, FT3 #### [facility] [address] [place] [address] Dr. Andrey Hargrove VIT D RANGES SEE BELOW Normal [facility] Comment on above: Result Comment: <20 ng/mL Vit D deficient 20 - <30 ng/mL Vit D insufficient 30 - 100 ng/mL Vit D sufficient >100 ng/mL Potential Toxicity Performed By: #### L IPID, TSH, FT3 #### [facility] [address] [place] [address] Dr. Andrey Hargrove MAGNESIUMon 05-14-2022 Magnesium [Mass/Vol] 2.1 mg/dL Normal 1.8-2.4 [facility] Comment on above: Performed By: #### L IPID, TSH, FT3 #### [facility] [address] [address] [address] Andrey Hargrove PROF CHEM 8 (BAS METB)on Anion gap [Moles/Vol] 12.0 mmol/L Normal [facility] Comment on above: Performed By: #### L IPID, TSH, FT3 #### [facility] [address] [place] [address] Dr. Andrey Hargrove Calcium [Mass/Vol] 9.0 mg/dL Normal 8.5-10.1 [facility] Comment on above: Performed By: #### L IPID, TSH, FT3 #### [facility] [address] [address] [address] Andrey Hargrove Chloride [Moles/Vol] 97 mmol/L Critically low 98-107 [facility] Comment on above: Performed By: #### L IPID, TSH, FT3 #### [facility] [address] [place] [address] Dr. Andrey Hargrove CO2 [Moles/Vol] 30.4 mmol/L Normal 21.0-32.0 [facility] Comment on above: Performed By: #### L IPID, TSH, FT3 #### [facility] [address] [place] [address] Dr. Andrey Hargrove Creatinine [Mass/Vol] 2.28 mg/dL Critically high 0.55-1.02 [facility] Comment on above: Performed By: #### L IPID, TSH, FT3 #### [facility] [address] [address] [address] Andrey Hargrove EGFR-AF TOGOLESE 26 mL/min/1.73m2 Critically low >=60 [facility] Comment on above: Performed By: #### L IPID, TSH, FT3 #### [facility] [address] [address] [address] Andrey Hargrove EGFR-NON AF TOGOLESE 21 mL/min/1.73m2 Critically low >=60 [facility] Comment on above: Performed By: #### L IPID, TSH, FT3 #### [facility] [address] [place] [address] Dr. Andrey Hargrove Glucose [Mass/Vol] 190 mg/dL Critically high 74-106 [facility] Comment on above: Performed By: #### L IPID, TSH, FT3 #### [facility] [address] [place] [address] Dr. Andrey Hargrove Potassium [Moles/Vol] 3.4 mmol/L Critically low 3.5-5.1 [facility] Comment on above: Performed By: #### L IPID, TSH, FT3 #### [facility] [address] [place] [address] Dr. Andrey Hargrove Sodium [Moles/Vol] 136 mmol/L Normal 136-145 [facility] Comment on above: Performed By: #### L IPID, TSH, FT3 #### [facility] [address] [place] [address] Dr. Andrey Hargrove Urea nitrogen [Mass/Vol] 73.0 mg/dL Critically high 7.0-18 .0 [facility] Comment on above: Performed By: #### L IPID, TSH, FT3 #### [facility] [address] [place] [address] Dr. Andrey Hargrove Urea nitrogen/Creatinine [Mass ratio] 32.0 mg/mg Normal [facility] Comment on above: Performed By: #### L IPID, TSH, FT3 #### [facility] [address] [place] [address] Dr. Andrey Hargrove XR CHEST 2 Von 05-12-2022 XR CHEST 2 V EXAMINATION: XR CHEST 2 V HISTORY: Chronic diastolic heart failure [...] RENETTA RENEE Date: 2022-05-12 09:12 Normal [facility] BNPon 05-11-2022 Natriuretic peptide B (Bld) [Mass/Vol] 7074.0 pg/mL Critically high <=900.0 [facility] Comment on above: Performed By: #### V ITAD, FETIBC, FERR #### [facility] [address] [place] [address] Dr. Andrey Hargrove CBC AUTO DIFFon 05-11-2022 BASO # 0.1 103/ul Normal 0.0-0.1 [facility] Comment on above: Performed By: #### V ITAD, FETIBC, FERR #### [facility] [address] [address] [address] Andrey Hargrove Basophils/100 WBC (Bld) 0.7 % Normal 0.2-2.0 [facility] Comment on above: Performed By: #### V ITAD, FETIBC, FERR #### [facility] [address] [address] [address] Andrey Hargrove EO # 0.3 103/ul Normal 0.0-0.7 [facility] Comment on above: Performed By: #### V ITAD, FETIBC, FERR #### [facility] [address] [address] [address] Andrey Hargrove Eosinophils/100 WBC (Bld) 3.8 % Normal 0.9-7.0 [facility] Comment on above: Performed By: #### V ITAD, FETIBC, FERR #### [facility] [address] [place] [address] Dr. Andrey Hargrove Erythrocyte distribution width (RBC) [Ratio] 14.7 % Normal 11.0-15.0 [facility] Comment on above: Performed By: #### V ITAD, FETIBC, FERR #### [facility] [address] [place] [address] Dr. Andrey Hargrove Hematocrit (Bld) [Volume fraction] 29.6 % Critically low 36.0-48.0 [facility] Comment on above: Performed By: #### V ITAD, FETIBC, FERR #### [facility] [address] [place] [address] Dr. Andrey Hargrove Hemoglobin (Bld) [Mass/Vol] 9.9 g/dL Critically low 12.0-16.0 [facility] Comment on above: Performed By: #### V ITAD, FETIBC, FERR #### [facility] [address] [place] [address] Dr. Andrey Hargrove IG # 0.03 10e3/ul Normal 0.00-0.03 [facility] Comment on above: Performed By: #### V ITAD, FETIBC, FERR #### [facility] [address] [place] [address] Dr. Andrey Hargrove IG % 0.4 % Normal 0.0-0.5 [facility] Comment on above: Performed By: #### V ITAD, FETIBC, FERR #### [facility] [address] [place] [address] Dr. Andrey Hargrove LYMPH # 1.3 103/ul Normal 1.2-3.8 [facility] Comment on above: Performed By: #### V ITAD, FETIBC, FERR #### [facility] [address] [place] [address] Dr. Andrey Hargrove Lymphocytes/100 WBC (Bld) 16.3 % Critically low 20.5-60.0 [facility] Comment on above: Performed By: #### V ITAD, FETIBC, FERR #### [facility] [address] [place] [address] Dr. Andrey Hargrove MANUAL DIFF REQ NO Normal [facility] Comment on above: Performed By: #### V ITAD, FETIBC, FERR #### [facility] [address] [place] [address] Dr. Andrey Hargrove MCH (RBC) [Entitic mass] 28.7 pg Normal 26.7-34.0 [facility] Comment on above: Performed By: #### V ITAD, FETIBC, FERR #### [facility] [address] [place] [address] Dr. Andrey Hargrove MCHC (RBC) [Mass/Vol] 33.4 g/dL Normal 29.9-35.2 [facility] Comment on above: Performed By: #### V ITAD, FETIBC, FERR #### [facility] [address] [place] [address] Dr. Andrey Hargrove MCV (RBC) [Entitic vol] 85.8 fL Normal 81.0-99.0 [facility] Comment on above: Performed By: #### V ITAD, FETIBC, FERR #### [facility] [address] [place] [address] Dr. Andrey Hargrove MONO # 0.7 103/ul Normal 0.3-0.8 [facility] Comment on above: Performed By: #### V ITAD, FETIBC, FERR #### [facility] [address] [place] [address] Dr. Andrey Hargrove Monocytes/100 WBC (Bld) 8.7 % Normal 1.7-12.0 [facility] Comment on above: Performed By: #### V ITAD, FETIBC, FERR #### [facility] [address] [place] [address] Dr. Andrey Hargrove NEUT # 5.4 103/ul Normal 1.4-6.5 [facility] Comment on above: Performed By: #### V ITAD, FETIBC, FERR #### [facility] [address] [place] [address] Dr. Andrey Hargrove Neutrophils/100 WBC (Bld) 70.1 % Normal 43.0-75.0 [facility] Comment on above: Performed By: #### V ITAD, FETIBC, FERR #### [facility] [address] [place] [address] Dr. Andrey Hargrove Platelet mean volume (Bld) [Entitic vol] 10.9 fL Normal 9.5-13.5 [facility] Comment on above: Performed By: #### V ITAD, FETIBC, FERR #### [facility] [address] [place] [address] Dr. Andrey Hargrove PLT 171 103/ul Normal 150-450 [facility] Comment on above: Performed By: #### V ITAD, FETIBC, FERR #### [facility] [address] [place] [address] Dr. Andrey Hargrove RBC 3.45 106/ul Critically low 4.20-5.40 [facility] Comment on above: Performed By: #### V ITAD, FETIBC, FERR #### [facility] [address] [place] [address] Dr. Andrey Hargrove WBC 7.7 103/ul Normal 4.0-11.0 [facility] Comment on above: Performed By: #### V ITAD, FETIBC, FERR #### [facility] [address] [place] [address] Dr. Andrey Hargrove PROF CHEM 8 (BAS METB)on Anion gap [Moles/Vol] 9.8 mmol/L Normal [facility] Comment on above: Performed By: #### V ITAD, FETIBC, FERR #### [facility] [address] [place] [address] Dr. Andrey Hargrove Calcium [Mass/Vol] 9.1 mg/dL Normal 8.5-10.1 [facility] Comment on above: Performed By: #### V ITAD, FETIBC, FERR #### [facility] [address] [place] [address] Dr. Andrey Hargrove Chloride [Moles/Vol] 96 mmol/L Critically low 98-107 [facility] Comment on above: Performed By: #### V ITAD, FETIBC, FERR #### [facility] [address] [place] [address] Dr. Andrey Hargrove CO2 [Moles/Vol] 30.8 mmol/L Normal 21.0-32.0 [facility] Comment on above: Performed By: #### V ITAD, FETIBC, FERR #### [facility] [address] [address] [address] Andrey Hargrove Creatinine [Mass/Vol] 2.28 mg/dL Critically high 0.55-1.02 [facility] Comment on above: Performed By: #### V ITAD, FETIBC, FERR #### [facility] [address] [place] [address] Dr. Andrey Hargrove EGFR-AF TOGOLESE 26 mL/min/1.73m2 Critically low >=60 [facility] Comment on above: Performed By: #### V ITAD, FETIBC, FERR #### [facility] [address] [place] [address] Dr. Andrey Hargrove EGFR-NON AF TOGOLESE 21 mL/min/1.73m2 Critically low >=60 [facility] Comment on above: Performed By: #### V ITAD, FETIBC, FERR #### [facility] [address] [place] [address] Dr. Andrey Hargrove Glucose [Mass/Vol] 158 mg/dL Critically high 74-106 [facility] Comment on above: Performed By: #### V ITAD, FETIBC, FERR #### [facility] [address] [place] [address] Dr. Andrey Hargrove Potassium [Moles/Vol] 3.6 mmol/L Normal 3.5-5.1 [facility] Comment on above: Performed By: #### V ITAD, FETIBC, FERR #### [facility] [address] [place] [address] Dr. Andrey Hargrove Sodium [Moles/Vol] 133 mmol/L Critically low 136-145 [facility] Comment on above: Performed By: #### V ITAD, FETIBC, FERR #### [facility] [address] [place] [address] Dr. Andrey Hargrove Urea nitrogen [Mass/Vol] 66.0 mg/dL Critically high 7.0-18 .0 [facility] Comment on above: Performed By: #### V ITAD, FETIBC, FERR #### [facility] [address] [place] [address] Dr. Andrey Hargrove Urea nitrogen/Creatinine [Mass ratio] 28.9 mg/mg Normal [facility] Comment on above: Performed By: #### V ITAD, FETIBC, FERR #### [facility] [address] [place] [address] Dr. Andrey Hargrove MAGNESIUMon 03-17-2022 Magnesium [Mass/Vol] 1.9 mg/dL Normal 1.8-2.4 [facility] Comment on above: Performed By: #### V ITAD, FETIBC, FERR #### [facility] [address] [place] [address] Dr. Andrey Hargrove PROF CHEM 8 (BAS METB)on Anion gap [Moles/Vol] 11.7 mmol/L Normal [facility] Comment on above: Performed By: #### V ITAD, FETIBC, FERR #### [facility] [address] [place] [address] Dr. Andrey Hargrove Calcium [Mass/Vol] 9.4 mg/dL Normal 8.5-10.1 [facility] Comment on above: Performed By: #### V ITAD, FETIBC, FERR #### [facility] [address] [place] [address] Dr. Andrey Hargroev Chloride [Moles/Vol] 97 mmol/L Critically low 98-107 [facility] Comment on above: Performed By: #### V ITAD, FETIBC, FERR #### [facility] [address] [place] [address] Dr. Andrey Hargrove CO2 [Moles/Vol] 29.0 mmol/L Normal 21.0-32.0 [facility] Comment on above: Performed By: #### V ITAD, FETIBC, FERR #### [facility] [address] [place] [address] Dr. Andrey Hargrove Creatinine [Mass/Vol] 2.02 mg/dL Critically high 0.55-1.02 [facility] Comment on above: Performed By: #### V ITAD, FETIBC, FERR #### [facility] [address] [place] [address] Dr. Andrey Hargrove EGFR-AF TOGOLESE 30 mL/min/1.73m2 Critically low >=60 [facility] Comment on above: Performed By: #### V ITAD, FETIBC, FERR #### [facility] [address] [place] [address] Dr. Andrey Hargrove EGFR-NON AF TOGOLESE 24 mL/min/1.73m2 Critically low >=60 [facility] Comment on above: Performed By: #### V ITAD, FETIBC, FERR #### [facility] [address] [place] [address] Dr. Andrey Hargrove Glucose [Mass/Vol] 204 mg/dL Critically high 74-106 T [facility] Comment on above: Performed By: #### V ITAD, FETIBC, FERR #### [facility] [address] [place] [address] Dr. Andrey Hargrove Potassium [Moles/Vol] 3.7 mmol/L Normal 3.5-5.1 [facility] Comment on above: Performed By: #### V ITAD, FETIBC, FERR #### [facility] [address] [place] [address] Dr. Andrey Hargrove Sodium [Moles/Vol] 134 mmol/L Critically low 136-145 [facility] Comment on above: Performed By: #### V ITAD, FETIBC, FERR #### [facility] [address] [place] [address] Dr. Andrey Hargrove Urea nitrogen [Mass/Vol] 60.0 mg/dL Critically high 7.0-18 .0 [facility] Comment on above: Performed By: #### V ITAD, FETIBC, FERR #### [facility] [address] [place] [address] Dr. Andrey Hargrove Urea nitrogen/Creatinine [Mass ratio] 29.7 mg/mg Normal [facility] Comment on above: Performed By: #### V ITAD, FETIBC, FERR #### [facility] [address] [place] [address] Dr. Andrey Hargrove PTH INTACTon 01-18-2022 PTH, Intact 51 pg/mL Normal 15-65 [facility] Comment on above: Performed By: #### L IPID, TSH, FT3 #### [facility] [address] [place] [address] Dr. Andrey Hargrove FERRITINon 01-17-2022 Ferritin [Mass/Vol] 133.0 ng/mL Normal 8.0-252.0 [facility] Comment on above: Performed By: #### V ITAD, FETIBC, FERR #### [facility] [address] [place] [address] Dr. Andrey Hargrove HEMOGRAM AND PLATELon 2021 Hematocrit (Bld) [Volume fraction] 31.7 % Critically low 36.0-48.0 [facility] Comment on above: Performed By: #### V ITAD, FETIBC, FERR #### [facility] [address] [place] [address] Dr. Andrey Hargrove Hemoglobin (Bld) [Mass/Vol] 10.2 g/dL Critically low 12.0-16.0 [facility] Comment on above: Performed By: #### V ITAD, FETIBC, FERR #### [facility] [address] [place] [address] Dr. Andrey Hargrove MCH (RBC) [Entitic mass] 28.3 pg Normal 26.7-34.0 [facility] Comment on above: Performed By: #### V ITAD, FETIBC, FERR #### [facility] [address] [place] [address] Dr. Andrey Hargrove MCHC (RBC) [Mass/Vol] 32.2 g/dL Normal 29.9-35.2 [facility] Comment on above: Performed By: #### V ITAD, FETIBC, FERR #### [facility] [address] [place] [address] Dr. Andrey Hargrove MCV (RBC) [Entitic vol] 88.1 fL Normal 81.0-99.0 [facility] Comment on above: Performed By: #### V ITAD, FETIBC, FERR #### [facility] [address] [place] [address] Dr. Andrey Hargrove PLT 198 103/ul Normal 150-450 [facility] Comment on above: Performed By: #### V ITAD, FETIBC, FERR #### [facility] [address] [place] [address] Dr. Andrey Hargrove RBC 3.60 106/ul Critically low 4.20-5.40 [facility] Comment on above: Performed By: #### V ITAD, FETIBC, FERR #### [facility] [address] [place] [address] Dr. Andrey Hargrove WBC 8.5 103/ul Normal 4.0-11.0 [facility] Comment on above: Performed By: #### V ITAD, FETIBC, FERR #### [facility] [address] [place] [address] Dr. Andrey Hargrove IRON AND TIBCon 01-17-2022 % SATURATION 17.8 % Normal [facility] Comment on above: Performed By: #### V ITAD, FETIBC, FERR #### [facility] [address] [place] [address] Dr. Andrey Hargrove Iron [Mass/Vol] 47.0 ug/dL Critically low 50.0-170.0 [facility] Comment on above: Performed By: #### V ITAD, FETIBC, FERR #### [facility] [address] [place] [address] Dr. Andrey Hargrove TIBC DIRECT 264.0 ug/dL Normal 250.0-450.0 [facility] Comment on above: Performed By: #### V ITAD, FETIBC, FERR #### [facility] [address] [place] [address] Dr. Andrey Hargrove MAGNESIUMon 01-17-2022 Magnesium [Mass/Vol] 2.0 mg/dL Normal 1.8-2.4 [facility] Comment on above: Performed By: #### V ITAD, FETIBC, FERR #### [facility] [address] [place] [address] Dr. Andrey Hargrove RENAL FUNCTION PANELon 01-17 Albumin [Mass/Vol] 3.3 g/dL Critically low 3.4-5.0 [facility] Comment on above: Performed By: #### V ITAD, FETIBC, FERR #### [facility] [address] [place] [address] Dr. Andrey Hargrove Calcium [Mass/Vol] 9.1 mg/dL Normal 8.5-10.1 [facility] Comment on above: Performed By: #### V ITAD, FETIBC, FERR #### [facility] [address] [place] [address] Dr. Andrey Hargrove Chloride [Moles/Vol] 104 mmol/L Normal 98-107 [facility] Comment on above: Performed By: #### V ITAD, FETIBC, FERR #### [facility] [address] [place] [address] Dr. Andrey Hargrove CO2 [Moles/Vol] 27.6 mmol/L Normal 21.0-32.0 [facility] Comment on above: Performed By: #### V ITAD, FETIBC, FERR #### [facility] [address] [place] [address] Dr. Andrey Hargrove Creatinine [Mass/Vol] 1.71 mg/dL Critically high 0.55-1.02 [facility] Comment on above: Performed By: #### V ITAD, FETIBC, FERR #### [facility] [address] [place] [address] Dr. Andrey Hargrove EGFR-AF TOGOLESE 36 mL/min/1.73m2 Critically low >=60 [facility] Comment on above: Performed By: #### V ITAD, FETIBC, FERR #### [facility] [address] [place] [address] Dr. Andrey Hargrove EGFR-NON AF TOGOLESE 30 mL/min/1.73m2 Critically low >=60 [facility] Comment on above: Performed By: #### V ITAD, FETIBC, FERR #### [facility] [address] [place] [address] Dr. Andrey Hargrove Glucose [Mass/Vol] 115 mg/dL Critically high 74-106 [facility] Comment on above: Performed By: #### V ITAD, FETIBC, FERR #### [facility] [address] [place] [address] Dr. Andrey Hargrove Phosphate [Mass/Vol] 4.3 mg/dL Normal 2.6-4.7 [facility] Comment on above: Performed By: #### V ITAD, FETIBC, FERR #### [facility] [address] [place] [address] Dr. Andrey Hargrove Potassium [Moles/Vol] 3.9 mmol/L Normal 3.5-5.1 [facility] Comment on above: Performed By: #### V ITAD, FETIBC, FERR #### [facility] [address] [place] [address] Dr. Andrey Hargrove Sodium [Moles/Vol] 139 mmol/L Normal 136-145 [facility] Comment on above: Performed By: #### V ITAD, FETIBC, FERR #### [facility] [address] [place] [address] Dr. Andrey Hargrove Urea nitrogen [Mass/Vol] 38.0 mg/dL Critically high 7.0-18 .0 [facility] Comment on above: Performed By: #### V ITAD, FETIBC, FERR #### [facility] [address] [place] [address] Dr. Andrey Hargrove UA RANDOM W/MICROSCOPICon BACTERIA NONE SEEN Normal NONE SEEN [facility] Comment on above: Performed By: #### L IPID, TSH, FT3 #### [facility] [address] [place] [address] Dr. Andrey Hargrove Bilirubin Ql (U) Negative Normal NEGATIVE [facility] Comment on above: Performed By: #### L IPID, TSH, FT3 #### [facility] [address] [place] [address] Dr. Andrey Hargrove CAST SEEN Abnormal NONE SEEN [facility] Comment on above: Performed By: #### L IPID, TSH, FT3 #### [facility] [address] [place] [address] [address] Andrey Hargrove Clarity (U) CLEAR Normal CLEAR [facility] Comment on above: Performed By: #### L IPID, TSH, FT3 #### [facility] [address] [place] [address] [address] Andrey Hargrove Color (U) LT. YELLOW Normal YELLOW [facility] Comment on above: Performed By: #### L IPID, TSH, FT3 #### [facility] [address] [place] [address] [address] Andrey Hargrove Crystals LM Nom (Urine sed) NONE SEEN Normal NONE SEEN [facility] Comment on above: Performed By: #### L IPID, TSH, FT3 #### [facility] [address] [place] [address] Dr. Andrey Hargrove Epithelial cells LM Ql (Urine sed) FEW Abnormal NONE SEEN /RARE [facility] Comment on above: Performed By: #### L IPID, TSH, FT3 #### [facility] [address] [place] [address] [address] Andrey Hargrove Glucose Ql (U) Negative Normal NEGATIVE [facility] Comment on above: Performed By: #### L IPID, TSH, FT3 #### [facility] [address] [address] [address] Andrey Hargrove Hemoglobin Ql (U) Negative Normal NEGATIVE [facility] Comment on above: Performed By: #### L IPID, TSH, FT3 #### [facility] [address] [place] [address] [address] Andrey Hargrove HYALINE CAST RARE Normal [facility] Comment on above: Performed By: #### L IPID, TSH, FT3 #### [facility] [address] [place] [address] [address] Andrey Hargrove Ketones Ql (U) Negative Normal NEGATIVE [facility] Comment on above: Performed By: #### L IPID, TSH, FT3 #### [facility] [address] [place] [address] Dr. Andrey Hargrove LEUKOCYTES TRACE Abnormal NEGATIVE [facility] Comment on above: Performed By: #### L IPID, TSH, FT3 #### [facility] [address] [place] [address] [address] Andrey Hargrove MUCOUS NONE SEEN Normal NONE SEEN [facility] Comment on above: Performed By: #### L IPID, TSH, FT3 #### [facility] [address] [place] [address] [address] Andrey Hargrove Nitrite Ql (U) Negative Normal NEGATIVE [facility] Comment on above: Performed By: #### L IPID, TSH, FT3 #### [facility] [address] [place] [address] Dr. Andrey Hargrove pH (U) 5.0 [pH] Normal 5-9 [facility] Comment on above: Performed By: #### L IPID, TSH, FT3 #### [facility] [address] [place] [address] Dr. Andrey Hargrove RBC 0-2 Normal 0-2 [facility] Comment on above: Performed By: #### L IPID, TSH, FT3 #### [facility] [address] [place] [address] Dr. Andrey Hargrove SPEC GRAVITY 1.020 Normal 1.005-<=1.02 5 [facility] Comment on above: Performed By: #### L IPID, TSH, FT3 #### [facility] [address] [place] [address] Dr. Andrey Hargrove UA PROTEIN Negative Normal NEGATIVE/ TRACE [facility] Comment on above: Performed By: #### L IPID, TSH, FT3 #### [facility] [address] [place] [address] Dr. Andrey Hargrove Urobilinogen Qn (U) 0.2 {Kelly'U}/dL Normal 0.2 - 1. 0 [facility] Comment on above: Performed By: #### L IPID, TSH, FT3 #### [facility] [address] [place] [address] Dr. Andrey Hargrove WBC 2-5 Abnormal NONE SEEN [facility] Comment on above: Performed By: #### L IPID, TSH, FT3 #### [facility] [address] [place] [address] Dr. Andrey Hargrove URIC ACID SERUMon 01-17-2022 Urate [Mass/Vol] 5.4 mg/dL Normal 2.6-6.0 [facility] Comment on above: Performed By: #### V ITAD, FETIBC, FERR #### [facility] [address] [place] [address] Dr. Andrey Hargrove URINE T PROTEIN CREAT RATIOo n 01-17-2022 Protein (U) [Mass/Vol] 15.3 mg/dL Critically high <=12.0 [facility] Comment on above: Performed By: #### V ITAD, FETIBC, FERR #### [facility] [address] [place] [address] Dr. Andrey Hargrove UR PROT CREAT RAT 0.36 Normal [facility] Comment on above: Performed By: #### V ITAD, FETIBC, FERR #### [facility] [address] [address] [address] Andrey Hargrove URINE CREAT 42.16 mg/dL Normal 20.00-300.00 [facility] Comment on above: Performed By: #### V ITAD, FETIBC, FERR #### [facility] [address] [place] [address] Dr. Andrey Hargrove VITAMIN D 25 OHon 01-17-2022 VIT D 25-OH 73.8 ng/mL Normal [facility] Comment on above: Performed By: #### V ITAD, FETIBC, FERR #### [facility] [address] [place] [address] Dr. Andrey Hargrove VIT D RANGES SEE BELOW Normal [facility] Comment on above: Result Comment: <20 ng/mL Vit D deficient 20 - <30 ng/mL Vit D insufficient 30 - 100 ng/mL Vit D sufficient >100 ng/mL Potential Toxicity Performed By: #### V ITAD, FETIBC, FERR #### [facility] [address] [place] [address] Dr. Andrey Hargrove PROF CHEM 8 (BAS METB)on Anion gap [Moles/Vol] 13.3 mmol/L Normal Th [facility] Comment on above: Performed By: #### V ITAD, FETIBC, FERR #### [facility] [address] [place] [address] Dr. Andrey Hargrove Calcium [Mass/Vol] 9.5 mg/dL Normal 8.5-10.1 [facility] Comment on above: Performed By: #### V ITAD, FETIBC, FERR #### [facility] [address] [place] [address] Dr. Andrey Hargrove Chloride [Moles/Vol] 98 mmol/L Normal 98-107 [facility] Comment on above: Performed By: #### V ITAD, FETIBC, FERR #### [facility] [address] [place] [address] Dr. Andrey Hargrove CO2 [Moles/Vol] 25.7 mmol/L Normal 21.0-32.0 [facility] Comment on above: Performed By: #### V ITAD, FETIBC, FERR #### [facility] [address] [place] [address] Dr. Andrey Hargrove Creatinine [Mass/Vol] 2.92 mg/dL Critically high 0.55-1.02 [facility] Comment on above: Performed By: #### V ITAD, FETIBC, FERR #### [facility] [address] [place] [address] Dr. Andrey Hargrove EGFR-AF TOGOLESE 19 mL/min/1.73m2 Critically low >=60 [facility] Comment on above: Performed By: #### V ITAD, FETIBC, FERR #### [facility] [address] [place] [address] Dr. Andrey Hargrove EGFR-NON AF TOGOLESE 16 mL/min/1.73m2 Critically low >=60 [facility] Comment on above: Performed By: #### V ITAD, FETIBC, FERR #### [facility] [address] [address] [address] Andrey Hargrove Glucose [Mass/Vol] 156 mg/dL Critically high 74-106 T [facility] Comment on above: Performed By: #### V ITAD, FETIBC, FERR #### [facility] [address] [place] [address] Dr. Andrey Hargrove Potassium [Moles/Vol] 5.0 mmol/L Normal 3.5-5.1 [facility] Comment on above: Performed By: #### V ITAD, FETIBC, FERR #### [facility] [address] [place] [address] Dr. Andrey Hargrove Sodium [Moles/Vol] 132 mmol/L Critically low 136-145 Th [facility] Comment on above: Performed By: #### V ITAD, FETIBC, FERR #### [facility] [address] [place] [address] Dr. Andrey Hargrove Urea nitrogen [Mass/Vol] 77.0 mg/dL Critically high 7.0-18 .0 [facility] Comment on above: Result Comment: CALL ED TO FRANCIS JUNG RMA Performed By: #### V ITAD, FETIBC, FERR #### [facility] [address] [place] [address] Dr. Andrey Hargrove Urea nitrogen/Creatinine [Mass ratio] 26.4 mg/mg Normal [facility] Comment on above: Performed By: #### V ITAD, FETIBC, FERR #### [facility] [address] [place] [address] Dr. Andrey Hargrove Cardiovascular Lab Reporton 12-10-2021 Cardiovascular Lab Report [facility] Patient Name: [facility]er [facility] MR #: [id number] Physician: Karthik Brewster M.D. Medicine Service Date: 12/09/2021 Division of Birthdate: 1950 Cardiology Room #: Adult Cardiovascular Services [place] [address] Cardiovascular Laboratory Report INDICATION: The patient is [...] signed informed consent. She was brought to label stamper in a fasting state. The right neck area was prepped and draped in usual fashion. Micropuncture technique and ultrasound guidance were used for access in the right internal jugular vein. A 5-Tunisian x 11 cm sheath was placed. A 5-Tunisian Dumont catheter was used for right heart [...] Fish M.D. Date Trans: 12/09/2021 11:37 P/monikao [id number] cc: John Perdomo D.O. [address] [facility] [address] Normal [facility] CBC COMPLETE BLOOD COUNTon 0 12-09-2021 Erythrocyte distribution width (RBC) [Ratio] 13.6 % Normal 11.5-15.0 [facility] Comment on above: Performed By: #### 5 [id number] #### [facility] [address] [place] [address], [facility] Hematocrit (Bld) [Volume fraction] 35.6 % Low 36.0-45.0 [facility] Comment on above: Performed By: #### 5 0608 #### [facility] [address] [place] [address], [facility] Hemoglobin (Bld) [Mass/Vol] 11.8 g/dL Low 12.0-15.0 [facility] Comment on above: Performed By: #### 5 0608 #### [facility] [address] [place] [id number], [facility] MCH (RBC) [Entitic mass] 28.6 pg Normal 27.0-33.0 [facility] Comment on above: Performed By: #### 5 0608 #### [facility] [address] [place] [address], [facility] MCHC (RBC) [Mass/Vol] 33.1 g/dL Normal 32.0-35.0 [facility] Comment on above: Performed By: #### 5 0608 #### [facility] [address] [place] [id number], [facility] MCV (RBC) [Entitic vol] 86.2 fL Normal 82.0-98.0 T [facility] Comment on above: Performed By: #### 5 0608 #### [facility] [address] Nucleated RBC/100 WBC (Bld) [Ratio] 0 % Normal 0-0 [facility] Comment on above: Performed By: #### 5 0608 #### [facility] [address] [place] [address], [facility] PLAT CNT 240 10*3/uL Normal 150-400 [facility] Comment on above: Performed By: #### 5 0608 #### [facility] [address] RBC (Bld) [#/Vol] 4.13 10*6/uL Normal 3.80-5.00 [facility] Comment on above: Performed By: #### 5 0608 #### [facility] [address] WBC (Bld) [#/Vol] 14.13 10*3/uL High 4.00-10.60 [facility] Comment on above: Performed By: #### 5 0608 #### [facility] [address] [facility] 06 SARS-CoV-2 (COVID-19) RNA JAYASHREE+probe Ql (Unsp spec) Not detected Normal NOT DETECTED [facility] Comment on above: Result Comment: This test is not yet approved or cleared by the [place] FDA. When there are no FDA-approved or cleared tests available, and other criteria are met, FDA can make tests available under an emergency access mechanism called an Emergency Use Authorization (EUA). The EUA for this test is supported by the Replenishment Specialist of Health and Human Service's (HHS's) declaration [...] By: #### V ITAD, FETIBC, FERR #### [facility] [address] [address] [address] Andrey Hargrove ECHOCARDIO M/2D COMPLETEon 0 12-06-2021 ECHOCARDIO M/2D COMPLETE Patient: CLAUDIA ESTRELLA Exam Date: 12/06/2021 : 1950 Gender:F Ordering : CARMINA ROSALES Admission #: [id number] Family : DR JOHN PERDOMO D.Dion Order #: [id number] CLICK HERE TO VIEW EXAM ECHOCARDIOGRAM REPORT [...] Area(A4C): 14.80 cm2 Left Atrium Systolic Volume(A2C): 27734 mm3 Left Atrium Systolic Volume(A4C): 82932 mm3 Mitral Valve MV E to A [...] Karthik Fish M.D. on 12/06/2021 at 17:31 [facility] 12-01-2021 Natriuretic peptide B (Bld) [Mass/Vol] 5127.0 pg/mL Critically high <=900.0 [facility] Comment on above: Performed By: #### V ITAD, FETIBC, FERR #### [facility] [address] [place] [address] Dr. Andrey Hargrove PROF CHEM 8 (BAS METB)on Anion gap [Moles/Vol] 13.9 mmol/L Normal [facility] Comment on above: Performed By: #### V ITAD, FETIBC, FERR #### [facility] [address] [place] [address] Dr. Andrey Hargrove Calcium [Mass/Vol] 9.4 mg/dL Normal 8.5-10.1 [facility] Comment on above: Performed By: #### V ITAD, FETIBC, FERR #### [facility] [address] [place] [address] Dr. Andrey Hargrove Chloride [Moles/Vol] 99 mmol/L Normal 98-107 [facility] Comment on above: Performed By: #### V ITAD, FETIBC, FERR #### [facility] [address] [place] [address] Dr. Andrey Hargrove CO2 [Moles/Vol] 28.4 mmol/L Normal 21.0-32.0 [facility] Comment on above: Performed By: #### V ITAD, FETIBC, FERR #### [facility] [address] [place] [address] Dr. Andrey Hargrove Creatinine [Mass/Vol] 2.11 mg/dL Critically high 0.55-1.02 [facility] Comment on above: Performed By: #### V ITAD, FETIBC, FERR #### [facility] [address] [place] [address] Dr. Andrey Hargrove EGFR-AF TOGOLESE 28 mL/min/1.73m2 Critically low >=60 [facility] Comment on above: Performed By: #### V ITAD, FETIBC, FERR #### [facility] [address] [address] [address] Andrey Hargrove EGFR-NON AF TOGOLESE 23 mL/min/1.73m2 Critically low >=60 [facility] Comment on above: Performed By: #### V ITAD, FETIBC, FERR #### [facility] [address] [place] [address] Dr. Andrey Hargrove Glucose [Mass/Vol] 179 mg/dL Critically high 74-106 T [facility] Comment on above: Performed By: #### V ITAD, FETIBC, FERR #### [facility] [address] [address] [address] Andrey Hargrove Potassium [Moles/Vol] 4.3 mmol/L Normal 3.5-5.1 [facility] Comment on above: Performed By: #### V ITAD, FETIBC, FERR #### [facility] [address] [place] [address] Dr. Andrey Hargrove Sodium [Moles/Vol] 137 mmol/L Normal 136-145 [facility] Comment on above: Performed By: #### V ITAD, FETIBC, FERR #### [facility] [address] [address] [address] Andrey Hargrove Urea nitrogen [Mass/Vol] 62.0 mg/dL Critically high 7.0-18 .0 [facility] Comment on above: Performed By: #### V ITAD, FETIBC, FERR #### [facility] [address] [place] [address] Dr. Andrey Hargrove Urea nitrogen/Creatinine [Mass ratio] 29.4 mg/mg Normal [facility] Comment on above: Performed By: #### V ITAD, FETIBC, FERR #### [facility] [address] [place] [address] Dr. Andrey Hargrove BNPon 11-19-2021 Natriuretic peptide B (Bld) [Mass/Vol] 4773.0 pg/mL Critically high <=900.0 [facility] Comment on above: Performed By: #### V ITAD, FETIBC, FERR #### [facility] [address] [place] [address] Dr. Andrey Hargrove PROF CHEM 8 (BAS METB)on Anion gap [Moles/Vol] 11.3 mmol/L Normal [facility] Comment on above: Performed By: #### V ITAD, FETIBC, FERR #### [facility] [address] [place] [address] Dr. Andrey Hargrove Calcium [Mass/Vol] 8.9 mg/dL Normal 8.5-10.1 [facility] Comment on above: Performed By: #### V ITAD, FETIBC, FERR #### [facility] [address] [place] [address] Dr. Andrey Hargrove Chloride [Moles/Vol] 100 mmol/L Normal 98-107 [facility] Comment on above: Performed By: #### V ITAD, FETIBC, FERR #### [facility] [address] [place] [address] Dr. Andrey Hargrove CO2 [Moles/Vol] 30.9 mmol/L Normal 21.0-32.0 [facility] Comment on above: Performed By: #### V ITAD, FETIBC, FERR #### [facility] [address] [place] [address] Dr. Andrey Hargrove Creatinine [Mass/Vol] 2.01 mg/dL Critically high 0.55-1.02 [facility] Comment on above: Performed By: #### V ITAD, FETIBC, FERR #### [facility] [address] [place] [address] Dr. Andrey Hargrove EGFR-AF TOGOLESE 30 mL/min/1.73m2 Critically low >=60 [facility] Comment on above: Performed By: #### V ITAD, FETIBC, FERR #### [facility] [address] [place] [address] Dr. Andrey Hargrove EGFR-NON AF TOGOLESE 24 mL/min/1.73m2 Critically low >=60 [facility] Comment on above: Performed By: #### V ITAD, FETIBC, FERR #### [facility] [address] [place] [address] Dr. Andrey Hargrove Glucose [Mass/Vol] 81 mg/dL Normal 74-106 [facility] Comment on above: Performed By: #### V ITAD, FETIBC, FERR #### [facility] [address] [place] [address] Dr. Andrey Hargrove Potassium [Moles/Vol] 3.2 mmol/L Critically low 3.5-5.1 [facility] Comment on above: Performed By: #### V ITAD, FETIBC, FERR #### [facility] [address] [place] [address] Dr. Andrey Hargrove Sodium [Moles/Vol] 139 mmol/L Normal 136-145 [facility] Comment on above: Performed By: #### V ITAD, FETIBC, FERR #### [facility] [address] [place] [address] Dr. Andrey Hargrove Urea nitrogen [Mass/Vol] 51.0 mg/dL Critically high 7.0-18 .0 [facility] Comment on above: Performed By: #### V ITAD, FETIBC, FERR #### [facility] [address] [place] [address] Dr. Andrey Hargrove Urea nitrogen/Creatinine [Mass ratio] 25.4 mg/mg Normal [facility] Comment on above: Performed By: #### V ITAD, FETIBC, FERR #### [facility] [address] [place] [address] Dr. Andrey Hargrove COVID-19 Antigenon 2 COVID-19 [...] its performance Kenny Disclaimer characteristic determined by [employer] and Kenny Disclaimer validated at [facility]. This Kenny Disclaimer test has [...] is terminated or revoked sooner. PERFORMED BY: [facility] [place] [address] PATHOLOGIST STONE CARVER JAMAL ALLEN M.D. [facility] Comment on above: Performed By: #### S OFCUONGPOS, COVID-19 KENNY #### [facility] [address] [place] [address] [facility] Kenny Ag Positiveon 07-31-19 Kenny Ag Positive Positive Critically abnormal Negative [facility] Comment on above: Result Comment: This is a duplicate Kenny SARS Antigen (JOSE RAMON) result to be used for statistical tracking purpose only. PERFORMED BY: [place] [address] PATHOLOGIST STONE CARVER JAMAL ALLEN M.D. Performed By: #### S OFIAPOS, COVID-19 KENNY #### [place] [id number] [facility] Coding Summary.on 12-22-2020 Coding Summary. CD:[id number]:[id number] Gh0bWw+PGhlYWQ+PE1FV KZnH09erYYojY1MK2mGB F5FLJPYABQPZI0JJZ2my KO0KGqfU9GlerSe JtkjdITdHS80PUq9WPM8 eVofTPxmiT1zsJDkC5k7 OuTgWZ63pO86VXgrPGPp LnS5DyQflsflhKFw C4okDxYbrMIzGif+PHRh YmxlIHdpZHRoPScxMDAl QvRqrLraIX1pYj6wXSEl LWNvbGxhcHNlOiBj t5kaPFPhOKrbAV0lpKnq D6JnjPI4INDvy7k5Ws60 dHI+VXCpJMF8xXcvVEpb e738AtXsd0rjCIM4 yBNqLKvzKAS8A87pa4L9 IXSyNKIjMMG8zUW9eC6f pNhiybknU3InwKBsJcK1 RFL1iRWojI3kzTen hspzjC4eAvn+P50EAU3Z TZZZYF8JJnd2E1XcEgmc dHI+VG53WTZmEN87hHOb fAHlg0alqAl8CfOj FQEiXXC8mBhrYBtyf5Fb AABpI73zyJAxk8E9SPXo wRcafFRqIaUqsSH6pG0z FUorkrujw8tdojdm Sxkav2uwda50wY05E50r BZvrYWTwRGD9KODkIBGy jNbjcj8voE3nZt0+IDxj v5xff7ytbGu4AeZe FDHbqfVadCzgVEI6g4Rd Mh00W5GuoHufe2DzRdo7 ly38bYXoz3F4pVF3DDaj VBMygQ8zKFupPyY2 VBKxGfAbeU92xAGcDRug Ov7rtPauyCvcWV3jISDu nvynTZJxfV4fSOVnmTSd kCaeLE1vHTDvgqrm h794MfPfXGC6GXRehOKk O8ZneP9mBcYmBWRtPLVq D7NvnYWrLXabN272RVvh RkH5YROglxBcF7Od UJRlwDynClV1i3A3Vz0A x3KrjvcxULP8JCouWJO5 IgXtJmIxWkH9I5EpPry8 XAHdlKsbMW0wZ0Bq KYTzujwecxbzeYV5CLWt JVGbwF20nERdWGqoBm5k x1X4c530CFOdYFSffO86 Zm4vzKgmLMAedTHS oH3hcqrff8tefzcxTvEf TSIhDCp9VKj7WFUxvQjd JdWyZUZ1HtM3RBQ3mVJs nC1ftNtxwmruuU7w Oyc+Y79mvB8sVUM2LCF2 zocrPMQnqbJnHZ92FX82 J6YnOynuzRDhkOS+PGRp tiUaoFzuCT6uOyOf f6udr2AwEUsnG6IkDOHa OVkzOjd8OCHrVGW1gGC6 mU1fKDMtHJwnh3Q0wVO5 Z2PotaViam5nc9ej PJQjVXixT19zmYTby3T6 CNSywIV3TNLchHjlDzFa uR83Cvc+NKOlnBkue6Gf Uhfgx3xdq4vjrIf9 IjMwJSIgdmFsaWduPSJ0 k1ItEi90A84rUNbpVNOk LHRqSSAhXXLfhDgepf8r mK5iEs4+PGNvbCB3 eTM2bM4nLTJwPhU7EPxg H364IfNzaFIoRbbac7iu y2ywmAy6LqDsJWBjapDh dVwsDQD6r6QwFp44 G27sCImfVBUaHTGlEAKu TWJodGmcqf6neY1uPd9+ PZ7al3dkjo18gN85gGN+ ELFyUSF8bBmoQLsm RBPehV9eWKerObY3UHBi HzBdyJ81qESzJZoqMb3g zHtmnTmyZB4tETVekfhr k688PcLnw4xfKGLs gWDlDGinREQ8C49ju2L2 RUGjNUJjPOR5fKN0uK2w bGlnbjogbGVmdDsgdmVy rPgkBPfrNRglV518 IHRvcDsnPlBhdGllbnQg TrLaQVu0Y3DvMrc3BYKp tFbcVT4lnYFvWPpoOg7r lVdhwHcwZK9rTOXr ztllr052IpYwb1fcGCUf bUEnCImwTTI5K95sp9I5 ISNiQVZbVYK3rQT0qP5k bGlnbjogbGVmdDsg rqEunCpfKEiaGWknR888 IHRvcDsnPkJpcnRoIERh tGM6JH63OO73qYGvh3W4 vRA1G6GgXEViiyon ibficTZ2TRSbJFIijR07 Rl8vfBpxSw1hVPYdHGM8 SSTtxERnO7MplM1vTnKg WZNfVBOpZ9BqtHJb JOyrG713MDudXlE1WVFr avTfZ6XzEJSauGjfVzL8 m4F6Kh0DJ4O9OV29SP26 kMSzj7P1gCE1X4Hl QOTpsnvymriynFR9YEKv KKPtkV97Hc0ufInmMw6e MVRtLBY9XPFhhCDtZ1Xu mB0rShFxGVWvLQWu A2YszXBvIEyfB987DSaw WnF4YIChplEaZ6DbUMWw pQxyKyV0f1N7Hk4INRs1 VH71OC03rOOwl8J8 yEJ4M2YjDOJdtgbsobob uPQ9FEBwXJFsdF30Rm9h iRlwNe8vCCSpYZH4RICq wYGsY4BvnV7lCyJb EJWrAZThE4EaySSpHKoo T352EQaqKsU8WIDinjKu S1OaBBCrrJiyIvF7m8W0 Eb1KIXJcAS94ZVU9 sBD8GV88BZ02U5TvKexe dGFibGU+PHRhYmxlIHdp ZHRoPScxMDAlJyBzdHls UX0dUi0uXPKsATSj sPlnpKDwWpItq1wxYRNg IUjoUA3irIfzO3XsuWP3 PNMmu5b1Xq21X95qV2Ao dXA+BTGqoVR7tVP4 wI2gJrGuIbP7AQwlO725 QxXevHZkZhogf2ryk4tp gWs5UuN8WDDywmTxwSsm ETO5s7UmAp59C62t IHdpZHRoPSIxNSUiIHZh sIdvvf6igQ5vIl2+PGNv vIG6xLW8zX6tItWwEeA8 BHzyQ857NnMusQHv Usfqg6nno1jwaRu4FdZp AITzwtOufWgsMPG1u4Xn Ii23H9WxhZouk4YkNri5 mf61aVXru8H0sOC3 I8OdQRKvdycyuYTfcJrr FF8zBMEocgnfVRCusK9l ACRmS8a8FnAcHlH3FYla M9ArpvL5OOVjmWQi CMdzBXO8X42nu1B1KSIl MGGnRXX1mIJ6vX6nhJrn bjogbGVmdDsgdmVydGlj UNasLGwoT087GLLh xVnrRPEpoR3sUEJusCFd eMsrJP4yDITdaeixJk9U D2LNKlslC3qLGj1EVKB9 S4YgHpc2FVJeiOht JG7ukHOrNTmhUk5igPco dNbaWI3aMWHeypxuTALb xK8nJXFcsVKjqLivSB1f TVKjcnojh989MbAd LZM0FGZntCHdZ4FxzJ3z UpMwGXDxOBVoD9GtuCIq QBmpU959LQmjBbR8CMGo qaApE0LpUIQglVaz CwG9h0W0Ix6pGQ1wMf9s XWAsWN86EL06rZVaw4F8 bJN0S5MgXMMyskziraxs jTH8ECNzVKQhoO24 zZBuWOskHs4rd0L0e174 NDMxWXAjsL25Gw3ahOlu ASWbbKQBfC4rrnfae1rq cjogIzAwMDAwMDt0 IHt4SZYbjQuaUhQxANB7 HsF0NZE3aPUnkR3dwAfq ysxlkW8xOyv+NjkgWWVh cfE0K3DrAxh2KWGi qMxwGN2csUArMKpwRm5y wVtwwKehAY1fVMUofjky HDBubG2kIBPgrWPhnAba KA5zTMLkzlwwg789 XkJkPXS5WJNkzVPjZ1Jm iD2eXbLhSHAtXILkM2Kh kVKaRCgmT347WJqtRxE0 AVIhdcRfJ5AiNYEh yOeoAyM9i2D8Ef6KLS7v rSX4D4SwRqs9WXGfcTgv OD1jsEDuWHcjGz4opXds oQffFU9kINDygnbk ZJMdnC4nWKRgzFXrwSwm JT5gXNTerqluu890UoRj TPZ8BPMooBSrB2BwfQ7g FoPgIIThWQHiZ6Zv yAHwYDfrG131KTvtIoG0 LVDojzXnV2LiYOWaaKbp RkY7l1H4Yg8QESDcQCSp pSQdSmZ6B6YiEteo dHI+DH72LYSbGQ19eKFg tBGgy0thvTs5GtWhBETf IHJ7bTagTZlpw5AwDNCy T23jxQSxb7R6WIUh zIicyLVlMnClrBO9sX8j RLhejbkhg0btdwpaEeud x2kttm10qI78P32mLIgi ZHRoPSIzMCUiIHZh kDchxs0juY6fKu6+PGNv aLU2sGC5eZ3zUaJjCrY1 GKkbH336PbDjwWBsDviz y9zll6zmrIu1CsEj VCPtxwSzuHnyCYJ8p2Ed Ba50H88fMHapRKGvHNMh XKBqIOJbnJuaee5ucE4d Ii8+BC9kz5hbld27 kH90mBK+REMmSWT9fUdx FHirDYFgkW3zRWveSlI8 NNReDmCwbC88iBJoHYtz Wo3bmTlkpOnzGM7i JORtkmgnz440DhBub7aw DWTjbNGhLLobHZT6O18g j1A0PQPdNLGjLAK0fUF3 bS6ouDegahlcgNLq dDsgdmVydGljYWwtYWxp Y918STJczLzbOjQjxMFx R4fnhsUNVS9lAvzdzMX+ RCFlDIN2sOmtXDhf LZMctI8hIPNsW9e1SgOq DmQ7ZSidB2NtbxT1HLTz hWHlCSIoiVJUpB1qkyaf a8sjpeonHhObDZBl UYb0KKj3SEAmqOetDjNb AJK5YyG5USV4kFSbhQ7r tHzttuvaaA3zXsm+RklO OjwvdGQ+PHRkIHN0 rMtwBQgxDCSqzY4mQIYc S3m1TxDkHdD9VOdqE0Up xcB2KADwxIUkFVVzeZYX gA4vqmkga3dvtwau ClAtGCVhFQa3DHh8FPQy wRqdSfBjWIB9WrI2BPX9 yXMdwZ4dxBltilfbmG8r Oyc+TVJOOjwvdGQ+ WRPwAFB8wVymAAmkVPTt bA6vWHJvQ1z6LrReVwY6 XVnwD0UfusW7JSJxoBZz ICKgwUGSyO1dwzpo b7mkddpuEjRtLSUhDPl5 DSe3JPZrpSjeJeVrGYC6 GbH4SXX8fAYotI0aoLqz athfjB1wBfk+UGF5 YEN3TB62TM99D1NgNpfi dGFibGU+PHRhYmxlIHdp ZHRoPScxMDAlJyBzdHls SK5oQa8uGDCyGKUz bGxh (more content not included)... Normal [facility] Consent for Procedure/Surger yon 12-16-2020 Consent for Procedure/Surgery [id number]#1.00CD:127 [facility] Formson 12-16-2020 Forms [id number]# 1.00CD:127 [facility] Lab Reportson 12-16-2020 Lab Reports [id number]# 1.00CD:127 [facility] Physician Referralon 021 Physician Referral [id number] #1.00CD:127 [facility] RAD - MISCon 12-16-2020 RAD - MISC [id number] 52#1.00CD:127 [facility] RAD - Ultrasound Reporton RAD - Ultrasound Report [id number] #1.00CD:127 Normal [facility] Ambulatory Clinical Summaryo n 12-15-2020 Ambulatory Clinical Summary {[id number]-dc-4 b-86-l2-12-d0-19-52- c3-f8-10}CD:[id number] Normal [facility] Patient Educationon 12-16-19 Patient Education Urology Hematuria, [...] these instructions at home: Medicines ? Take hljx-szs-snikyvj and prescription medicines only as told by [...] the blood stops without treatment. ? Take unwu-vbg-yvxozjy and prescription medicines only as told by your health care provider. ? Drink enough fluid to keep your urine clear or pale yellow. This information is not intended to replace advice given to you by your health care provider. Make sure you discuss any questions you have with your health care provider. Document Released: 06/19/2006 Document Revised: 11/13/2019 Document Reviewed: 07/22/2017 [employer] Patient Education ? 2019 [employer] [facility] Urology Office/Clinic Noteon 12-15-2020 Urology Office/Clinic Note [...] The Urethra was dilated to: _18- 30 Tunisian with sounds. Specimens Removed: None Removal: Cystoscope [...] [facility] [address], [place] [address] [phone] Additional Instructions: f/u PRN Patient Education Hematuria, Adult Donna Burnett, personally scribed for Dr. Kwon on 12/15/2020 [...] 50,000 intl units (1.25 mg) oral capsule, 39854 International_Unit= 1 cap(s), Monday Zioptan 0.0015% ophthalmic solution Allergies erythromycin (Anaphylactic reaction) penicillin (Hives) Social History Alco (more content not included)... Normal [facility] Comment on above: Result Comment: Elec tronically Signed By: CHER VIGIL, Marcos Abreu\.br\Date and Time Signed: 12/15/20 15:58 EDT\.br\Electronically Co-Signed By: Donna Hartley\.br\Date and Time Co-Signed: 12/15/20 15:56 EDT Reminderson 12-14-2020 Reminders - From: Augusta Singh To: EU - Clinical; Sent: 12/11/2020 13:29:41 EDT Show up: 12/14/2020 13:29:00 EDT Subject: Urine culture Reminder/Recall Urine Culture PRW reviewed positive culture. [facility] C Urineon 12-13-2020 Bacteria identified Cx Nom [...] or tested, I=Intermediate, ESBL=Extended spectrum beta-lactamase, R=Resistant, TFG=Thymidine-depend ent strain, KEIRA=Beta-lactamase positive, DAE=mcg/m;(mg/L), S*=Predicted susceptible interp, [...] Locations R1: This test was performed at: [facility], [address] [place] [address], [address] , , [facility] Comment on above: Performed By: #### 2 [id number] ####[address] [address] Ambulatory Clinical Summaryo n 12-11-2020 Ambulatory Clinical Summary {[id number]-e0-16-cd-4 8-y2-3e-2y-k0-cy-d3- 6c-b8-cc}CD:[id number] Normal [facility] Ambulatory Clinical Summary {14-2b-jm-01-34-83-4 o-0e-jj-65-8s-3x-8d- 13-29-0f}CD:[id number] Normal [facility] Ambulatory Clinical Summary {[id number]-8p-78-2a-0b-4 1-9d-87-63-12-3l-2b- c5-e6-1f}CD:[id number] Normal [facility] Patient Educationon 12-12-19 Patient Education Urology Hematuria, [...] these instructions at home: Medicines ? Take yqnn-hcj-ehfiwru and prescription medicines only as told by [...] the blood stops without treatment. ? Take itmz-nsp-qdcqfzm and prescription medicines only as told by [...] Reviewed: 07/22/2017 Elsevier Patient Education ? 2019 [employer] 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 Jenkins due to Hematuria. Pt states that since the End of October she has been feeling a slight squeeze, no pain associated with this. Pt had a Renal US done at [facility]. Pt states that she has a [...] When Contact Information CHER VIGIL, Marcos Abreu, [place] [address] [place] [address] [phone] Additional Instructions: Patient Education Hematuria, Adult I, [...] Tab amLOD (more content not included)... Normal [facility] Comment on above: Result Comment: Elec tronically Signed By: CHER VIGIL, Marcos Abreu\.br\Date and Time Signed: 12/11/20 11:17 EDT\.br\Electronically Co-Signed By: Regla Pyle MA\.br\Date and Time Co-Signed: 12/11/20 11:12 EDT Lab Reportson 11-16-2020 Lab Reports [id number] #1.00CD:127 [facility] Lab Reports [id number] #1.00CD:127 [facility] RAD - Ultrasound Reporton RAD - Ultrasound Report [id number] #1.00CD:127 [facility] IntraOperative Documentson 07-12-2019 IntraOperative Documents [id number]#1.00CD:127 [facility] Message from Medicareon Message from Medicare [id number]#1 .00CD:127 [facility] Coding Summary.on 05-06-2020 Coding Summary. CODING DATE: 05/06/2020 FINAL [facility] STATUS: Home (Routine DC) PAYOR: Medicare [...] PROC APC STAT DESCRIPTION DOCTOR NAME DATE 79075 7324 J1 Arthroscopy, knee, David Talamantes DO 05/01/2020 surgical; with meniscectomy (medial OR lateral, including any meniscal shaving) including debridement/shaving of articular cartilage (chondroplasty), same or separate compartment(s), when performed LT Left side (used to identify procedures performed on the left side of the body) [address]373 Anesthesia for open or Gurmeet Aldridge Jr, [...] [place] Revised Date Saved: 05/06/2020 11:55 am [facility] Insurance Correspondence Off iceon 05-05-2020 Insurance Correspondence Office [id number] 5#1.00CD:127 [facility] Main OR Intraoperative Recor don 05-05-2020 Main OR Intraoperative Record IntraOp Document Type FT Summary Primary Physician: David Talamantes DO Finalized Date/Time: 05/05/20 14:09:46 Pt. Name: CLAUDIA ESTRELLA/Sex: 1950 Female Med Rec #: [id number] Physician: David Talamantes DO Financial #: [id number] Pt. Type: O Room/Bed: N217/ Admit/Disch: 05/01/20 11:43:14 - 05/04/20 12:35:00 Institution: [...] Role Performed Anesthesiologist of Surgeon - Primary Slide Attendant - Primary Record Time In 05/01/20 14:26:00 05/01/20 14:39:00 05/01/20 14:26:00 Time Out 05/01/20 15:04:00 05/01/20 15:04:00 05/01/20 15:04:00 Procedure KNEE ARTHROSCOPY(Left) KNEE ARTHROSCOPY(Left) KNEE ARTHROSCOPY(Left) Comments Last Modified By: Edgar RN, Viky Hernández RN, Viky Hernández RN, Viky Mcdonough 05/01/20 15:04:35 05/01/20 15:04:35 05/01/20 15:04:35 Entry 4 Entry 5 Entry 6 Case Attendee Maxim RN, Augusta Castro CDL DEDICATED TRUCK DRIVER, Leatha Flowers RN, CNOR, Cee Role Performed Slide Attendant - Primary Scrub - Primary Slide Attendant - Relief Time In 05/01/20 14:26:00 05/01/20 [...] Talamantes DO, Viky Hernández RN, Chapin RN, Augusta Jenkins, Matthew TOMLINSON, Leatha Samuels Time Out Complete 05/01/20 14:39:00 [...] and tissue Entry 1 Skin Integrity Intact, [place], Warm, and Skin Abnormality No Dry Outcomes Met? Yes Last Modified By: Viky Hernández RN 05/01/20 14:46:48 Post-Care Text: The patient is free from signs and symptoms of injury caused by extraneous objects Patient Positioning FT Pre-Care Text: Identifies physical alterations that require additional precautions for procedure-specific positioning, verifies presence of prosthetics or corrective (more content not included)... Normal [facility] Progress Note-Physicianon Progress Note-Physician Patient: CLAUDIA ESTRELLA Age: 70 years Sex: Female : 1950 Associated Diagnoses: None Author: Gurmeet Aldridge Jr, DO Preoperative Information Time patient last ate or drank:=== (npo 8 hours) Anesthesia history: Patient history: No prior anesthesia problems. Re-evaluation prior to induction: Completed, Initial evaluation reviewed. Review of Systems Respiratory: No shortness of breath. Cardiovascular: No chest pain. Hematology/Lymphatic s: No bruising tendency, No bleeding tendency. Health [...] volume (mL): 1,000, 68.3 kg, 1.64, m2 [place] 5/325 Tab: 1 tab(s), Tab, Oral, q4hr [...] mg = 1 tab(s), Oral, Daily, Prophylaxis hydrochlorothiazide- lisinopril 12.5 mg-20 mg Tab: 1 tab(s), Oral, Daily, High blood pressure metoprolol 25 mg ER Tab: See Instructions, 1.5 tab Oral Daily, Refills(s) 0, High blood pressure Problem list: All Problems DM kidney disease / SNOMED CT 703737551 / Confirmed PVD (peripheral vascular disease) / SNOMED CT 2792439712 / Confirmed MMT (medial meniscus tear) / SNOMED CT 722502163 / Confirmed Resolved: Ocular herpes zoster / SNOMED CT 369414366 Resolved: HTN (hypertension) / SNOMED CT 8689033447 Canceled: Diabetes / SNOMED CT 366048660 Histories Past Medical History: No active or resolved past medical history items have been selected or recorded. Family History: No family history items have been selected or recorded. Procedure history: Right eye cataract extraction and insertion of intraocular lens ([id number]) on 11/19/2019 at 69 Years. Cataract extraction and insertion of intraocular lens ([id number]) on 11/06/2019 at 69 Years. Comments: 11/06/2019 14:13 EDT - [place] RN, Loreto R Left Appendectomy ([id number]). section x2 ([id number]). Cholecystectomy (96587604). Anesthesia for laparoscopic procedure on lower abdomen (55650543). Cheilectomy of tarsal foot (9622965897). Social History Social & Psychosocial Habits Alcohol [...] results Radiology results ECG interpretation Condition Plan [employer] (ASA) physical status classification: Class III. Anesthetic Preoperative (more content not included)... Normal [facility] Comment on above: Result Comment: Elec tronically [...] Problems DM kidney disease / SNOMED CT 603422852 / Confirmed PVD (peripheral vascular disease) / SNOMED CT 5576783693 / Confirmed MMT (medial meniscus tear) / SNOMED CT 105786304 / Confirmed Resolved: Ocular herpes zoster / SNOMED CT 243708555 Resolved: HTN (hypertension) / SNOMED CT 1102547440 Canceled: Diabetes / SNOMED CT 207627052 Physical Examination Vital Signs 05/01/2020 16:58 EDT [...] F/U Plan Transfer/ Discharge: Condition stable. Normal [facility] Comment on above: Result Comment: Elec tronically Signed By: Gurmeet Aldridge Jr, DO\.rashmi\Date and Time Signed: 05/05/20 08:22 EST Capillary Glucose POCon Glucose [Mass/Vol] 149 mg/dL High 55-99 [facility] Comment on above: Result Comment: Monty pelayo RN/ Performed By: #### 2 [id number] #### [facility] [address] [place] [address] Glucose [Mass/Vol] 127 mg/dL High 55-99 [facility] Comment on above: Result Comment: Monty pelayo RN/ Performed By: #### 2 [id number] #### [facility] [address] [place] [address] Consent for Anesthesiaon Consent for Anesthesia [id number] #1.00CD:127 Normal [facility] Discharge Instructionson Discharge Instructions [id number]#1.00CD:127 Normal [facility] Inpatient Clinical Summaryon 05-04-2020 Inpatient Clinical Summary [address] [address] Clinical Summary Person Information: Name: CLAUDIA ESTRELLA Age: 70 Years : 1950 Sex: Female PCP: JOHN PERDOMO DO Marital Status: Race: White Ethnicity: Non- or Language: Slovenian Visit Id: Visit Reason: LEFT KNEE BONE BRUISE, MEDIAL MENISCUS TEAR, EFFUSION Speciality: Acuity: Enc Type: Observation Med Service: Surgery Arrival: 05/01/2020 11:43:14 Discharge: Dispo Type: Address: [address] [place] [address] Provider Notes: Diagnosis: 1:Other chest pain; 2:Hypertension; [...] Drops Both eyes 2 times a day. hydrochlorothiazide- lisinopril (hydrochlorothiazide -lisinopril 12.5 mg-20 mg Tab) 1 Tablets By Mouth every day. insulin glargine (Basaglar KwikPen) 15 Units Subcutaneous 3 times a day. metoprolol (metoprolol 25 mg ER Tab) 1.5 tab Oral Daily. Care Team Members: Attending Physician: Nhung BARAHONA MD Consulting Physician: John Mcclellan MD Referring Physician: David Talamantes DO Follow up: With: Address: When: Follow up with [facility] Within 1 week With: Address: When: JOHN [place] [address] Business (1) With: Address: When: David Talamantes [address] [id number] Business (1) Comments: Keep scheduled appointment Patient Education Information: Post Op Patient Instructions - FT (Custom); Knee Cryocuff Patient Instructions - FT (Custom); Talamantes - Knee Arthroscopy (Custom) (CUSTOM) Normal [facility] Inpatient Patient Summaryon 05-04-2020 Inpatient Patient Summary [address] [address] Patient Discharge Instructions PERSON INFORMATION Name: CLAUDIA ESTRELLA Date of : 1950 Current Date: 05/04/2020 12:16:47 PHYSICIANS Admitting Physician: Nhung BARAHONA MD Primary Care Physician: JOHN PERDOMO DO PCP Comment: Discharge Diagnosis: 1:Other chest pain; 2:Hypertension; 3:Diabetes; 4:Acute medial meniscus tear of left knee; 5:Localized osteoarthritis of left knee; 6:No contraindication to deep vein thrombosis (DVT) prophylaxis Condition at Discharge: CLAUDIA Hurtado has been given the following list of [...] up: With: Address: When: Follow up with [facility] Within 1 week With: Address: When: JOHN PERDOMO [address] [facility] [place] [address] Business (1) With: Address: When: David Talamantes [address] [place] [address], [place] [address] Business (1) Comments: Keep scheduled appointment In the event that this physician does not participate in your insurance network, please consult with your insurance company to find a nearby participating provider. Comment: SAMEER Burnett SHARON E, have received the attached patient education materials/instructio ns and have verbalized understanding: Patient Signature Date Clinican/Nurse Signature Date HERE ARE THE MEDICATION CHANGES THAT OCCURRED DURING YOUR HOSPITAL STAY New Medications [id number], [address], [place] [id number], [phone] atorvastatin (Lipitor 20 mg Tab) 1 Tablets By Mouth at bedtime. Refills: 1. Last Dose: Next Dose: Medications to Continue with No Changes Other Medications amlodipine (amLODIPine 10 mg Tab) 1 Tablets By Mouth every day. Last Dose: Next Dose: aspirin (aspirin 81 mg oral tablet) 1 Tablets By Mouth every day. Last Dose: Next Dose: cycloSPORINE ophthalmic (Restasis 0.05% ophthalmic emulsion) 1 Drops Both eyes 2 times a day. Last Dose: Next Dose: hydrochlorothiazide- lisinopril (hydrochlorothiazide -lisinopril 12.5 mg-20 mg Tab) 1 Tablets By Mouth every day. Last Dose: Next Dose: insulin glargine (Basaglar KwikPen) 15 Units Subcutaneous 3 times a day. Last Dose: Next Dose: metoprolol (metoprolol 25 mg ER Tab) 1.5 tab Oral Daily. Last Dose: Next Dose: Comment: MEDICATION LIST PROVIDED FOR YOU IS A LIST OF YOUR CURRENT MEDICATIONS. PLEASE CARRY THIS WITH YOU AT ALL TIMES. amlodipine (amLO (more content not included)... [facility] Interdisciplinary Note - PTo n 05-04-2020 Interdisciplinary Note - PT PT Screen performed. Pt was able to stand and ambulate throughout room without difficulty and without an AD. Pt also demos appropriate ROM to knee. Would recommend to f/u with Ortho to determine if therapy is needed in the future, but no PT needed at this time [facility] IntraOperative Documentson 1 07-04-2019 IntraOperative Documents [id number] #1.00CD:127 [facility] IntraOperative Documents [id number] #1.00CD:127 [facility] Message from Medicare 11 Message from Medicare [id number]. [id number] 5#1.00CD:127 Normal [facility] Monitor Recordon 05-04-2020 Monitor Record [id number]. [id number] 6#1.00CD:127 Normal [facility] Monitor Record [id number]. [id number] 5#1.00CD:127 Normal [facility] Monitor Record [id number]. [id number] 7#1.00CD:127 Normal [facility] Patient Education - Texton 1 07-04-2019 Patient Education - Text (Inserted Image . Unable to display) [place], [place] [facility] DISCHARGE INSTRUCTIONS: KNEE ARTHROSCOPY [...] your appointment. David Talamantes, DO [facility] [address] [place] [address] Reviewed: 10-08 Normal [facility] Preoperative Documentson Preoperative Documents [id number] 110 [id number] #1.00CD:127 Normal [facility] Preoperative Documents [id number] 110 [id number] #1.00CD:127 Normal [facility] Prescriptions/Work Noteson 1 07-04-2019 Prescriptions/Work Notes [id number] #1.00CD:127 Normal [facility] Capillary Glucose POCon Glucose [Mass/Vol] 183 mg/dL High 55-99 [facility] Comment on above: Performed By: #### 2 [id number] #### [facility] [address] [place] [address] Glucose [Mass/Vol] 155 mg/dL High 55-99 [facility] Comment on above: Performed By: #### 2 [id number] #### [facility] [address] [place] [address] Glucose [Mass/Vol] 113 mg/dL High 55-99 [facility] Comment on above: Result Comment: Monty pelayo RN/ Performed By: #### 2 [id number] ####[facility] [address] [place] [address] Glucose [Mass/Vol] 112 mg/dL High 55-99 [facility] Comment on above: Performed By: #### 2 [id number] #### [facility] [address] [place] [address] Glucose [Mass/Vol] 85 mg/dL Normal 55-99 [facility] Comment on above: Result Comment: Monty pelayo RN/ Performed By: #### 2 [id number] #### [facility] [address] [place] [address] Glucose [Mass/Vol] 59 mg/dL Normal 55-99 [facility] Comment on above: Result Comment: Monty MEDEIROS Performed By: #### 2 [id number] #### [facility] [address] [place] [address] Consultation Noteon 05-03-20 Consultation Note HOSPITAL REGULATIONS: ALL Positive Important Negative Findings Shall Be [...] left knee and elevate. Eh Carter DO [facility] Dictated: 05/02/2020 #[id number] Typed: 05/02/2020 #[id number] cc: DO David Nieto D.O. Normal [facility] Comment on above: Result Comment: Elec tronically Signed By: Eh Carter DO\.br\Date and Time Signed: 05/03/20 10:27 EST Monitor Recordon 05-03-2020 Monitor Record [id number] 1#1.00CD:127 Normal [facility] Monitor Record [id number] 6#1.00CD:127 Normal [facility] Operative Reporton 0 Operative Report Date of [...] The patient's condition satisfactory David Talamantes D.O. [facility] Dictated: 05/01/2020 #[id number] Typed: 05/01/2020 #[id number] cc: Randa Lanier D.O. Normal [facility] Comment on above: Result Comment: Elec tronically [...] Systems Constitutional: No fevers, chills Eye: Negative. Ear/Nose/Mouth/Throa t: Negative. Respiratory: Negative Cardiovascular: Negative. Gastrointestinal: Negative. [...] mg/dL High (05/03/20 12:18:00) POC Device SN: [id number] (05/03/20 12:18:00) POC Username: JOSESITO BROWN (05/03/20 12:18:00) Problem List/Past Medical History Ongoing Diabetes Hypertension Historical No qualifying data Medications Inpatient acetaminophen 325 mg Tab, 650 mg= 2 tab(s), Oral, q6hr, PRN Al hydroxide/Mg hydroxide/simethicon e 200 mg-200 mg-20 mg/5 mL oral suspension, [...] 0.4 mg= 1 tab(s), SubLingual, q5min, PRN [place] 5/325 Tab, 1 tab(s), Oral, q4hr, PRN ocular lubricant preserved Radha, 2 drop(s), OPTH, QID Zofran 4 mg/2 mL Injection, 4 mg= 2 mL, IV Push, q4hr, PRN Home amLODIPine 10 mg Tab, 10 mg= 1 tab(s), Oral, Daily aspirin 81 mg oral tablet, 81 mg= 1 tab(s), Oral, Daily Basaglar KwikPen, 15 unit(s), SubCutaneous, TID hydrochlorothiazide- lisinopril 12.5 mg-20 mg Tab, 1 tab(s), Oral, Daily metoprolol 25 mg ER Tab, See Instructions Restasis 0.05% ophthalmic emulsion, 1 drop(s), Eye-Both, BID Normal [facility] Comment on above: Result Comment: Elec tronically [...] mg/dL High (05/03/20 07:32:00) POC Device SN: [id number] (05/03/20 07:32:00) POC Username: POC Username (05/03/20 [...] 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 Continue [...] 2 tab(s), Oral, q6hr, PRN Al hydroxide/Mg hydroxide/simethicon e 200 mg-200 mg-20 mg/5 mL oral suspension, 30 mL, Oral, q6hr, PRN amLODIPine 10 mg Tab, 10 mg= 1 tab(s), Oral, Daily aspirin 325 mg Oral EC Tab, 325 mg= 1 tab(s), Oral, Daily hydrochlorothiazide 12.5 mg Tab, 12.5 mg= 1 tab(s), Oral, Daily HYDROmorphone 1 mg/mL injectable solution, 1 mg= 1 mL, IV Push, q2hr, PRN L (more content not included)... Normal [facility] Comment on above: Result Comment: Elec tronically Signed By: Eleuterio VIGIL, John Marin.br\Date and Time Signed: 05/03/20 07:45 EST Capillary Glucose POCon 04-04 Glucose [Mass/Vol] 212 mg/dL High 55-99 [facility] Comment on above: Performed By: #### 2 [id number] #### [facility] [address] [place] [address] Glucose [Mass/Vol] 138 mg/dL High 55-99 [facility] Comment on above: Performed By: #### 2 [id number] #### [facility] [address] [place] [address] Glucose [Mass/Vol] 139 mg/dL High 55-99 [facility] Comment on above: Performed By: #### 2 [id number] #### [facility] [address] [place] [address] Glucose [Mass/Vol] 105 mg/dL High 55-99 [facility] Comment on above: Performed By: #### 2 [id number] #### [facility] [address] [place] [address] Glucose [Mass/Vol] 233 mg/dL High 55-99 [facility] Comment on above: Result Comment: Monty pelayo RN/ Performed By: #### 2 [id number] ####[facility] [address] [place] [address] Lipid Panelon 05-02-2020 Cholesterol [Mass/Vol] 160 mg/dL Normal 120-200 [facility] Comment on above: Performed By: #### 2 [id number] #### [facility] [address] [place] [address] Cholesterol in HDL [Mass/Vol] 49 mg/dL Invalid Interpretation Code [facility] Comment on above: Result Comment: HDL > or equal to 60 mg/dL: Low cardiovascular risk HDL < 40 mg/dL : High cardiovascular risk Performed By: #### 2 [id number] #### [facility] [address] [place] [address] Cholesterol in LDL [Mass/Vol] 98 mg/dL Normal <=129 [facility] Comment on above: Performed By: #### 2 [id number] #### [facility] [address] [place] [address] Cholesterol in VLDL [Mass/Vol] 12 mg/dL Normal 7-40 [facility] Comment on above: Performed By: #### 2 [id number] #### [facility] [address] [place] [address] Triglyceride [Mass/Vol] 61 mg/dL Normal <=149 [facility] Comment on above: Performed By: #### 2 [id number] #### [facility] [address] [place] [address] Monitor Recordon 05-02-2020 Monitor Record [id number] 2#1.00CD:127 Normal [facility] Progress Note-Physicianon Progress Note-Physician Assessment/Plan 1. Other chest pain (R07.89: Other chest pain) - ACS ruled out - d/w cardiology, plan for stress test and echo and monday Ordered: 2. Hypertension (I10: Essential (primary) hypertension) - hctz/lisinopril, norvasc, metoprolol 3. Diabetes (E11.9: Type 2 diabetes mellitus without complications) - [facility] - lantus 4. Acute medial meniscus tear [...] Start date 05/01/20 18:18:00 EDT Al hydroxide/Mg hydroxide/simethicon e, 30 mL, Susp-Oral, Oral, q6hr PRN Indigestion, [...] Systems Constitutional: No fevers, chills Eye: Negative. Ear/Nose/Mouth/Throa t: Negative. Respiratory: Negative Cardiovascular: Negative. Gastrointestinal: Negative. [...] (05/01/20 18:27:00) (more content not included)... Normal [facility] Comment on above: Result Comment: Elec tronically Signed By: JUN VIGIL, Nhung\.br\Date and Time Signed: 05/02/20 10:00 EDT Troponin 3 Hr.on 05-02-2020 Troponin I.cardiac [Mass/Vol] 3.60 pg/mL Low 10.10-27.10 [facility] Comment on above: Result Comment: The 95% CI (Confidence Interval) PPV (Positive Predictive Value) for myocardial infarction in females is 38 pg/mL, in males 51 pg/mL. The results should be used in conjunction with clinical conditions of myocardial infarction. (Access High Sensitivity Troponin I Instructions For Use, Wilfr[place], January 2018) Performed By: #### 2 [id number] #### [facility] [address] [place] [address] Troponin 6 Hr.on 05-02-2020 Troponin I.cardiac [Mass/Vol] 3.90 pg/mL Low 10.10-27.10 [facility] Comment on above: Result Comment: The 95% CI (Confidence Interval) PPV (Positive Predictive Value) for myocardial infarction in females is 38 pg/mL, in males 51 pg/mL. The results should be used in conjunction with clinical conditions of myocardial infarction. (Access High Sensitivity Troponin I Instructions For Use, [employer], January 2018) Performed By: #### 2 [id number] #### [facility] [address] [place] [address] Troponin 9 Hr.on 05-02-2020 Troponin I.cardiac [Mass/Vol] 5.10 pg/mL Low 10.10-27.10 [facility] Comment on above: Result Comment: The 95% CI (Confidence Interval) PPV (Positive Predictive Value) for myocardial infarction in females is 38 pg/mL, in males 51 pg/mL. The results should be used in conjunction with clinical conditions of myocardial infarction. ([employer] High Sensitivity Troponin I Instructions For Use, [employer], January 2018) Performed By: #### 2 [id number] #### [facility] [address] [place] [address] US Carotid Duplex Bilateralo n 05-02-2020 US [...] ECA (cm/sec): 199/15 Vert. Antegrade Yes Normal [facility] Auto Diffon 05-01-2020 Basophils/100 WBC (Bld) 0.4 % Normal 0.0-2.0 [facility] Comment on above: Order Comment: Order Added by Discern Expert. Performed By: #### 2 438746, 22616049, 7610622, 7402579 #### [facility] [address] [place] [address] Basophils/Leukocytes Auto (Bld) [Pure # fraction] 0.0 E9/L Normal 0.0-0.2 [facility] Comment on above: Order Comment: Order Added by Discern Expert. Performed By: #### 2 517806, 68061289, 7734809, 4879521 #### [facility] [address] [place] [address] Eosinophils/100 WBC (Bld) 1.2 % Normal 0.0-8.0 [facility] Comment on above: Order Comment: Order Added by Discern Expert. Performed By: #### 2 625065, 20735216, 1891519, 8475767 #### [facility] [address] [place] [address] Eosinophils/Leukocytes Auto (Bld) [Pure # fraction] 0.1 E9/L Normal 0.0-0.5 [facility] Comment on above: Order Comment: Order Added by Discern Expert. Performed By: #### 2 432015, 52257326, 0413800, 8960511 #### [facility] [address] [place] [address] Lymphocytes/100 WBC (Bld) 9.7 % Low 14.0-50.0 [facility] Comment on above: Order Comment: Order Added by Discern Expert. Performed By: #### 2 107442, 76863238, 6390794, 3294420 #### [facility] [address] [place] [address] Lymphocytes/Leukocytes Auto (Bld) [Pure # fraction] 1.0 E9/L Normal 1.0-4.0 [facility] Comment on above: Order Comment: Order Added by Discern Expert. Performed By: #### 2 511526, 17115713, 3350532, 0387443 #### [facility] [address] [place] [address] Monocytes/100 WBC (Bld) 4.2 % Normal 4.0-14.0 [facility] Comment on above: Order Comment: Order Added by Discern Expert. Performed By: #### 2 366753, 93956316, 6842261, 0686850 #### [facility] [address] [place] [address] Monocytes/Leukocytes Auto (Bld) [Pure # fraction] 0.4 E9/L Normal 0.2-1.0 [facility] Comment on above: Order Comment: Order Added by Discern Expert. Performed By: #### 2 436602, 69777868, 1500918, 6256337 #### [facility] [address] [place] [address] Neutrophils/100 WBC (Bld) 84.5 % High 36.0-75.0 [facility] Comment on above: Order Comment: Order Added by Discern Expert. Performed By: #### 2 929021, 19577326, 2850705, 0162206 #### [facility] [address] [place] [address] Neutrophils/Leukocytes Auto (Bld) [Pure # fraction] 8.9 E9/L High 2.0-7.5 [facility] Comment on above: Order Comment: Order Added by Discern Expert. Performed By: #### 2 708792, 43557677, 4292234, 7110460 #### [facility] [address] [place] [address] BMPon 05-01-2020 Calcium [Mass/Vol] 8.9 mg/dL Normal 8.9-11.1 [facility] Comment on above: Performed By: #### 2 070355, 63579533, 5504167, 7284072 #### [facility] [address] [place] [address] Anion gap [Moles/Vol] 10 mmol/L Normal 6-16 [facility] Comment on above: Performed By: #### 2 554913, 14014060, 7175239, 4092104 #### [facility] [address] [place] [address] Chloride [Moles/Vol] 103 mmol/L Normal 101-111 [facility] Comment on above: Performed By: #### 2 563008, 12906022, 1128416, 2890782 #### [facility] [address] [place] [address] CO2 [Moles/Vol] 24 mmol/L Normal 21-31 [facility] Comment on above: Performed By: #### 2 050735, 36098221, 5009163, 4965422 #### [facility] [address] [place] [address] Creatinine [Mass/Vol] 1.6 mg/dL High 0.5-1.3 [facility] Comment on above: Performed By: #### 2 594646, 44403792, 8365154, 5207236 #### [facility] [address] [place] [address] Glucose [Mass/Vol] 167 mg/dL Normal 55-199 [facility] Comment on above: Result Comment: If t his glucose result represents a fasting glucose, interpretation should refer to the following reference range: 55-99 mg/dL Performed By: #### 2 195797, 97788754, 0636626, 5768124 #### [facility] [address] [place] [address] Potassium [Moles/Vol] 3.9 mmol/L Normal 3.5-5.3 [facility] Comment on above: Performed By: #### 2 049160, 94375661, 5130082, 7429800 #### [facility] [address] [place] [address] Sodium [Moles/Vol] 133 mmol/L Low 135-145 [facility] Comment on above: Performed By: #### 2 256974, 25584689, 7658109, 7473846 #### [facility] [address] [place] [address] Urea nitrogen [Mass/Vol] 34 mg/dL High 5-21 [facility] Comment on above: Performed By: #### 2 215613, 98878898, 8646017, 8087782 #### [facility] [address] [place] [address] Urea nitrogen/Creatinine [Mass ratio] 21 No Units High 10-20 [facility] Comment on above: Performed By: #### 2 189127, 25920771, 4747094, 9104777 #### [facility] [address] [place] [address] CBC w/ Auto Diffon 0 Erythrocyte distribution width (RBC) [Ratio] 13.0 % Normal 10.9-14.2 [facility] Comment on above: Performed By: #### 2 970244, 88306443, 3343399, 8371708 #### [facility] [address] [place] [address] Hematocrit (Bld) [Volume fraction] 32.4 % Low 34.0-46.0 [facility] Comment on above: Performed By: #### 2 420718, 19258714, 4346730, 9614991 #### [facility] [address] [place] [address] Hemoglobin (Bld) [Mass/Vol] 11.2 g/dL Low 12.0-16.0 [facility] Comment on above: Performed By: #### 2 198609, 12485214, 3067744, 1424688 #### [facility] [address] [place] [address] MCH (RBC) [Entitic mass] 29.6 pg Normal 27.0-34.0 [facility] Comment on above: Performed By: #### 2 388573, 09462958, 1376002, 4825776 #### [facility] [address] [place] [address] MCHC (RBC) [Mass/Vol] 34.6 g/dL Normal 31.4-36.0 [facility] Comment on above: Performed By: #### 2 477595, 72608571, 5330891, 6668158 #### [facility] [address] [place] [address] MCV (RBC) [Entitic vol] 85.5 fL Normal 80.0-100.0 [facility] Comment on above: Performed By: #### 2 435223, 48893598, 8856414, 7601203 #### [facility] [address] [place] [address] Platelet mean volume (Bld) [Entitic vol] 8.4 fL Normal 6.4-10.8 [facility] Comment on above: Performed By: #### 2 184889, 54189061, 3780636, 2938738 #### [facility] [address] [place] [address] Platelets (Bld) [#/Vol] 242.0 E9/L Normal 150.0-500.0 [facility] Comment on above: Performed By: #### 2 408070, 17496304, 4526690, 2944155 #### [facility] [address] [place] [address] RBC (Bld) [#/Vol] 3.8 E12/L Low 4.3-5.9 [facility] Comment on above: Performed By: #### 2 068324, 27973763, 8712804, 9513929 #### [facility] [address] [place] [address] WBC corrected for nucl RBC Auto (Bld) [#/Vol] 10.5 E9/L Normal 4.0-11.0 [facility] Comment on above: Performed By: #### 2 939838, 85470999, 7646361, 8778040 #### [facility] [address] [place] [address] Capillary Glucose POCon 04-04 Glucose [Mass/Vol] 84 mg/dL Normal 55-99 [facility] Comment on above: Result Comment: Repe at Test Performed By: #### 2 99390617 #### [facility] [address] [place] [address] Glucose [Mass/Vol] 88 mg/dL Normal 55-99 [facility] Comment on above: Result Comment: Repe at Test Performed By: #### 2 [id number] #### [facility] [address] [place] [address] Coding Summary.on 05-01-2020 Coding Summary. CODING DATE: 05/01/2020 FINAL [facility] STATUS: Home (Routine DC) PAYOR: Medicare [...] [place] CphT Date Saved: 05/01/2020 08:36 am [facility] Coding Summary. CODING DATE: 04/25/2020 [facility] STATUS: Home (Routine DC) PAYOR: Medicare [...] [place] CphT Date Saved: 04/25/2020 04:17 pm [facility] Consent for Treatmenton 04-04 Consent for Treatment [id number] #1.00CD:127 [facility] Consent for Treatment [id number] #1.00CD:127 [facility] H&P Updateon 05-01-2020 H&P Update [id number] #1.00CD:127 [facility] Main OR PACU I Recordon 04-04 Main OR PACU I Record PACU Phase I Document Type FT Summary Primary Physician: David Talamantes DO Finalized Date/Time: 05/01/20 18:04:55 Pt. Name: CLAUDIA ESTRELLA Katerin Ramirez/Sex: 1950 Female Med Rec #: [id number] Physician: David Talamantes DO Financial #: [id number] Pt. Type: A Room/Bed: [place] [address] Admit/Disch: 05/01/20 11:43:14 - Institution: Case Times [...] By: Ju Bates RN 05/01/20 18:04 Normal [facility] Main OR PACU II Recordon Main OR PACU II Record PACU Phase II Document Type FT Summary Primary Physician: David Talamantes DO Finalized Date/Time: 05/01/20 20:09:08 Pt. Name: SAMEERCLAUDIA/Sex: 1950 Female Med Rec #: [id number] Physician: David Talamantes DO Financial #: [id number] Pt. Type: O Room/Bed: [place] [address] Admit/Disch: 05/01/20 11:43:14 - Institution: Case Times [...] Signed By: Yessy Curran RN 05/01/20 20:09 [facility] Main OR Preoperative Recordo n 05-01-2020 Main OR Preoperative Record PreOp Document Type FT Summary Primary Physician: David Talamantes DO Finalized Date/Time: 05/01/20 14:45:06 Pt. Name: SAMEERCLAUDIA/Sex: 1950 Female Med Rec #: [id number] Physician: David Talamantes DO Financial #: [id number] Pt. Type: Room/Bed: [place] [address] Admit/Disch: 05/01/20 11:43:14 - Institution: Case Times [...] Signed By: Viky Hernández RN 05/01/20 14:45 [facility] Monitor Recordon 05-01-2020 Monitor Record [id number] 0#1.00CD:127 Normal [facility] Monitor Record [id number] 8#1.00CD:127 Normal [facility] Outside Radiologyon 05-01-20 20 Outside Radiology [id number] #1.00CD:127 Normal [facility] Outside Recordson 05-01-2020 Outside Records [id number] #1.00CD:127 Normal [facility] Progress Note-Nurseon 2019 Progress Note-Nurse At 1653--Gisela [...] voicemail. 183--This nurse spoke with Dr. Carter (engineer design and construction physician), informed Dr. Carter reason for admission and patient's room number. Dr. Aldridge at bedside at 1705--Physician looked at patient EKG strip that was printed. Normal [facility] Progress Note-Nurse 1528: pt. medicated with 0.4mg [...] dtr. also at bedside and updated. Normal [facility] Troponin 0 Hr.on 05-01-2020 Troponin I.cardiac [Mass/Vol] 4.10 pg/mL Low 10.10-27.10 [facility] Comment on above: Result Comment: The 95% CI (Confidence Interval) PPV (Positive Predictive Value) for myocardial infarction in females is 38 pg/mL, in males 51 pg/mL. The results should be used in conjunction with clinical conditions of myocardial infarction. (Access High Sensitivity Troponin I Instructions For Use, Wilfrido [place], January 2018) Performed By: #### 2 [id number] #### [facility] [address] [place] [address] eGFRon 05-01-2020 GFR/1.73 sq M.predicted among blacks MDRD (S/P/Bld) [Vol rate/Area] 39 mL/min/1.73 m2 Low >=59 [facility] Comment on above: Order Comment: Order added by Discern Expert. Result Comment: eGFR is race adjusted. AA=. Performed By: #### 2 773539, 10117508, 6827652, 4441618 #### [facility] [address] [place] [address] GFR/1.73 sq M.predicted among non-blacks MDRD (S/P/Bld) [Vol rate/Area] 32 mL/min/1.73 m2 Low >=59 [facility] Comment on above: Order Comment: Order added by Discern Expert. Result Comment: Half Backer jayden kidney disease could be indicated at eGFR's of less than 60 mL/min/1.73m2. Kidney failure is indicated at less than 15 mL/min/1.73m2. Performed By: #### 2 700802, 56975310, 4170425, 6372627 #### [facility] [address] [place] [address] Coding Summary.on 04-28-2020 Coding Summary. CODING DATE: 04/28/2020 FINAL [facility] STATUS: Home (Routine DC) PAYOR: Medicare [...] CphT Date Saved: 04/28/2020 09:19 am Normal [facility] Outpatient Surgery Discharge Instructionon 04-28-2020 Outpatient Surgery Discharge Instruction [address] [address] Patient Discharge Instructions PERSON INFORMATION [...] NEAREST EMERGENCY ROOM OR CALL 911 I, SAMEER CLAUDIA E, have received the attached patient education materials/instructio ns and have verbalized understanding: May we do a follow up call? Yes No I was present when discharge instructions were given Patient Signature Date Clinican/Nurse Signature Date Follow up: With: Address: When: David Talamantes [address] [place] [address] Replenish (1) Comments: Keep scheduled appointment Type Location Start [facility] Surgery [facility] 05/01/2020 2:15 PM 05/01/2020 2:55 PM Confirmed Pharmacy Information: Thank you for choosing [facility] HERE ARE THE MEDICATION CHANGES [...] tablet) 1 Tablets By Mouth every day. hydrochlorothiazide- lisinopril (hydrochlorothiazide -lisinopril 12.5 mg-20 mg Tab) 1 Tablets By Mouth every day. metoprolol (metoprolol 25 mg ER Tab) 1.5 tab Oral Daily. PATIENT EDUCATION INFORMATION Instructions: [place], [place] [facility] DISCHARGE INSTRUCTIONS: KNEE ARTHROSCOPY [...] result of (more content not included)... Normal [facility] Consent for Procedure/Surger yon 04-27-2020 Consent for Procedure/Surgery [id number] 5#1.00CD:127 Normal [facility] Outside Recordson 04-27-2020 Outside Records [id number] 9#1.00CD:127 Normal [facility] Priority Order-rTina 2019 Priority Order-STAT Comment Invalid Interpretation Code [facility] Comment on above: Result Comment: Rece ived Performed at: [facility] [address] [facility], [place] [id number] MD Bladimir Briones Performed By: #### 2 [id number] #### [facility] [address] [place] [address] SARS-CoV-2, NAAon 04-25-2020 SARS-CoV-2 (COVID-19) RNA JAYASHREE+probe Ql (Resp) Not detected Invalid Interpretation Code Not Detected [facility] Comment on above: Result Comment: This nucleic acid amplification test was developed and its performance characteristics determined by [employer]. Nucleic acid amplification tests include PCR and [...] detected) result in this assay. Performed at: [facility] [employer] [facility] [facility] [address] [facility] [place] [id number] MD Bladimir Briones Performed By: #### 2 [id number] #### [facility] [address] [place] [address] XR Chest 2 Viewson 0 XR Chest [...] George M.D. Transcribed by: LUDIN Technologist: CLEVELAND Taylor [facility] BUNon 04-24-2020 Urea nitrogen [Mass/Vol] 36 mg/dL High 5-21 [facility] Comment on above: Performed By: #### 1 [id number], 7158740, 4341351, 2192576, 6872941, 2557448 ####[facility] [address] [place] [address] CBC w/Indiceson 04-24-2020 Erythrocyte distribution width (RBC) [Ratio] 13.0 % Normal 10.9-14.2 [facility] Comment on above: Performed By: #### 1 4131130, 1644228, 3930091, 7816887, 3703463, 7965188 ####[address] [place] [address] Hematocrit (Bld) [Volume fraction] 34.1 % Normal 34.0-46.0 [facility] Comment on above: Performed By: #### 1 8256667, 0036980, 3551024, 3401968, 9286284, 9535656 ####[facility] [address] [place] [address] Hemoglobin (Bld) [Mass/Vol] 11.6 g/dL Low 12.0-16.0 [facility] Comment on above: Performed By: #### 1 4433403, 6887721, 8861430, 2612017, 6204200, 9901692 ####[facility] [address] [place] [address] MCH (RBC) [Entitic mass] 29.5 pg Normal 27.0-34.0 [facility] Comment on above: Performed By: #### 1 9154248, 2937203, 3384769, 2672737, 9267375, 3545334 ####[facility] [address] [place] [address] MCHC (RBC) [Mass/Vol] 34.1 g/dL Normal 31.4-36.0 [facility] Comment on above: Performed By: #### 1 0049525, 2487166, 0886742, 9171921, 6566910, 6509828 ####[address] [place] [address] MCV (RBC) [Entitic vol] 86.5 fL Normal 80.0-100.0 [facility] Comment on above: Performed By: #### 1 9790399, 0078814, 3968203, 7515433, 7271318, 3777029 ####[address] [place] [address] Platelet mean volume (Bld) [Entitic vol] 9.4 fL Normal 6.4-10.8 [facility] Comment on above: Performed By: #### 1 9248744, 9558368, 3620881, 4852559, 5232732, 7761856 ####[address] [address] Platelets (Bld) [#/Vol] 246.0 E9/L Normal 150.0-500.0 [facility] Comment on above: Performed By: #### 1 0726980, 6920532, 6672787, 8894086, 0978811, 0902215 ####[address] [address] RBC (Bld) [#/Vol] 3.9 E12/L Low 4.3-5.9 [facility] Comment on above: Performed By: #### 1 5060943, 0290621, 3493569, 9042058, 4770432, 5578948 ####[address] [address] WBC corrected for nucl RBC Auto (Bld) [#/Vol] 10.0 E9/L Normal 4.0-11.0 [facility] Comment on above: Performed By: #### 1 3308305, 7403251, 4324085, 5517516, 0762611, 1138115 ####[address] [place] [address] Consent for Treatmenton 04-03 Consent for Treatment [id number] #1.00CD:127 Normal [facility] Creatinineon 04-24-2020 Creatinine [Mass/Vol] 1.6 mg/dL High 0.5-1.3 [facility] Comment on above: Performed By: #### 1 7596359, 0709151, 1081697, 0379934, 5208302, 4746203 ####[facility] [address] [place] [address] Glu Fastingon 04-24-2020 Glucose [Mass/Vol] 81 mg/dL Normal 55-99 [facility] Comment on above: Performed By: #### 1 5109288, 7023187, 9304382, 9680985, 4544689, 5807356 ####[facility] [address] [place] [address] Lyteson 04-24-2020 Anion gap [Moles/Vol] 13 mmol/L Normal 6-16 [facility] Comment on above: Performed By: #### 1 7229324, 1604000, 8021324, 6597857, 2234790, 6607243 ####[facility] [address] [place] [address] Chloride [Moles/Vol] 103 mmol/L Normal 101-111 [facility] Comment on above: Performed By: #### 1 5034430, 9613506, 3716115, 3611853, 0371147, 0791466 ####[facility] [address] [place] [address] CO2 [Moles/Vol] 26 mmol/L Normal 21-31 [facility] Comment on above: Performed By: #### 1 3435048, 8973357, 9969807, 1500642, 1851902, 7787298 ####[facility] [address] [place] [address] Potassium [Moles/Vol] 3.9 mmol/L Normal 3.5-5.3 [facility] Comment on above: Performed By: #### 1 6506574, 0291000, 3066359, 8218755, 6561870, 2923328 ####[facility] [address] [place] [address] Sodium [Moles/Vol] 138 mmol/L Normal 135-145 [facility] Comment on above: Performed By: #### 1 0872411, 6155994, 6260594, 7874429, 8053560, 1597679 ####[facility] [address] [place] [address] Physician Orderon 04-24-2020 Physician Order [id number]#1.00CD:127 Normal [facility] eGFRon 04-24-2020 GFR/1.73 sq M.predicted among blacks MDRD (S/P/Bld) [Vol rate/Area] 39 mL/min/1.73 m2 Low >=59 [facility] Comment on above: Order Comment: Order added by Discern Expert. Result Comment: eGFR is race adjusted. AA=. Performed By: #### 1 1769124, 4706149, 9073907, 6648909, 7777067, 3689413 ####[facility] [address] [place] [address] GFR/1.73 sq M.predicted among non-blacks MDRD (S/P/Bld) [Vol rate/Area] 32 mL/min/1.73 m2 Low >=59 [facility] Comment on above: Order Comment: Order added by Discern Expert. Result Comment: Half Backer jayden kidney disease could be indicated at eGFR's of less than 60 mL/min/1.73m2. Kidney failure is indicated at less than 15 mL/min/1.73m2. Performed By: #### 1 0051766, 9885047, 7127579, 5790552, 5958795, 7923224 ####[facility] [address] [place] [address] Physician Orderon 04-13-2020 Physician Order [id number]#1.00CD:127 Normal [facility] Physician Orderon 04-10-2020 Physician Order [id number] 3#1.00CD:127 Normal [facility] Vital Signs Date Time Vital Sign Value Performing Clinician Facility 01-08-2024 13:03-0400 Body height 147.32 cm [facility] 01-08-2024 13:03-0400 Body mass index (BMI) [Ratio] 26.1 kg/m2 [facility] 01-08-2024 13:03-0400 Body temperature 98.6 [degF] [facility] 01-08-2024 13:03-0400 Body weight 56.75 kg [facility] 01-08-2024 13:03-0400 Diastolic blood pressure 62 mm[Hg] [facility] 01-08-2024 13:03-0400 Heart rate 69 /min [facility] 01-08-2024 13:03-0400 Respiratory rate 16 /min [facility] 01-08-2024 13:03-0400 SaO2% (BldA) [Mass fraction] 96 % [facility] 01-08-2024 13:03-0400 Systolic blood pressure 144 mm[Hg] [facility] 09-25-2023 15:52-0400 Body weight 58.74 kg [facility] 09-25-2023 15:52-0400 Diastolic blood pressure 60 mm[Hg] [facility] 09-25-2023 15:52-0400 Heart rate 65 /min [facility] 09-25-2023 15:52-0400 Systolic blood pressure 110 mm[Hg] [facility] 05-30-2023 15:40-0500 Body height 147.32 cm [facility] Other [employer] [facility] [employer] Other 05-30-2023 15:40-0500 Body mass index (BMI) [Ratio] 26.92 kg/m2 [facility] Other [facility] Other 05-30-2023 15:40-0500 Body temperature 97 [degF] [facility] Other [facility] Other 05-30-2023 15:40-0500 Body weight 58.42 kg [facility] Other [facility] Other 05-30-2023 15:40-0500 Diastolic blood pressure 71 mm[Hg] [facility] Other [facility] Other 05-30-2023 15:40-0500 Respiratory rate 18 /min [facility] Other [facility] Other 05-30-2023 15:40-0500 SaO2% (BldA) [Mass fraction] 97 % [facility] Other [facility] Other 05-30-2023 15:40-0500 Systolic blood pressure 153 mm[Hg] [facility] Other [facility] Other 01-30-2023 15:40-0400 Body height 147.32 cm [facility] Other [facility] Other 01-30-2023 15:40-0400 Body mass index (BMI) [Ratio] 26.83 kg/m2 [facility] Other [facility] Other 01-30-2023 15:40-0400 Body temperature 97.7 [degF] [facility] Other [facility] Other 01-30-2023 15:40-0400 Body weight 58.24 kg [facility] Other [facility] Other 01-30-2023 15:40-0400 Diastolic blood pressure 67 mm[Hg] [facility] Other [facility] Other 01-30-2023 15:40-0400 Respiratory rate 18 /min [facility] Other [facility] Other 01-30-2023 15:40-0400 SaO2% (BldA) [Mass fraction] 98 % [facility] Other [facility] Other 01-30-2023 15:40-0400 Systolic blood pressure 136 mm[Hg] [facility] Other [facility] Other 08-30-2022 14:40-0500 Body height 147.32 cm [facility] Other [facility] Other 08-30-2022 14:40-0500 Body mass index (BMI) [Ratio] 26.29 kg/m2 [facility] Other [facility] Other 08-30-2022 14:40-0500 Body temperature 98.6 [degF] [facility] Other [facility] Other 08-30-2022 14:40-0500 Body weight 57.06 kg [facility] Mary Grace Other [facility] Other 08-30-2022 14:40-0500 Diastolic blood pressure 72 mm[Hg] [facility] Other [facility] Other 08-30-2022 14:40-0500 Respiratory rate 18 /min [facility] Other [facility] Other 08-30-2022 14:40-0500 SaO2% (BldA) [Mass fraction] 96 % [facility] Other [facility] Other 08-30-2022 14:40-0500 Systolic blood pressure 139 mm[Hg] [facility] Other [facility] Other 05-30-2022 11:40-0500 Body height 147.32 cm [facility] Other [facility] Other 05-30-2022 11:40-0500 Body mass index (BMI) [Ratio] 27.25 kg/m2 [facility] Other [facility] Other 05-30-2022 11:40-0500 Body temperature 96.2 [degF] [facility] Other [facility] Other 05-30-2022 11:40-0500 Body weight 59.15 kg [facility] Other [facility] Other 05-30-2022 11:40-0500 Diastolic blood pressure 71 mm[Hg] [facility] Other [facility] Other 05-30-2022 11:40-0500 SaO2% (BldA) [Mass fraction] 97 % [facility] Other [facility] Other 05-30-2022 11:40-0500 Systolic blood pressure 151 mm[Hg] [facility] Other [facility] Other 01-27-2022 12:20-0400 Body height 147.32 cm [facility] Mary Garce Other [facility] Other 01-27-2022 12:20-0400 Body mass index (BMI) [Ratio] 26.83 kg/m2 [facility] Other [facility] Other 01-27-2022 12:20-0400 Body temperature 98 [degF] [facility] Other [facility] Other 01-27-2022 12:20-0400 Body weight 58.24 kg [facility] Other [facility] Other 01-27-2022 12:20-0400 Diastolic blood pressure 69 mm[Hg] [facility] Other [facility] Other 01-27-2022 12:20-0400 Respiratory rate 18 /min [facility] Other [facility] Other 01-27-2022 12:20-0400 SaO2% (BldA) [Mass fraction] 96 % [facility] Other [facility] Other 01-27-2022 12:20-0400 Systolic blood pressure 136 mm[Hg] [facility] Other [facility] Other 09-20-2021 16:00-0400 Body height 147.32 cm [facility] Other [facility] Other 09-20-2021 16:00-0400 Body mass index (BMI) [Ratio] 27.42 kg/m2 [facility] Other [facility] Other 09-20-2021 16:00-0400 Body temperature 97.6 [degF] [facility] Other [facility] Other 09-20-2021 16:00-0400 Body weight 59.51 kg [facility] Other [facility] Other 09-20-2021 16:00-0400 Diastolic blood pressure 76 mm[Hg] [facility] Other [facility] Other 09-20-2021 16:00-0400 Respiratory rate 18 /min [facility] Other [facility] Other 09-20-2021 16:00-0400 SaO2% (BldA) [Mass fraction] 97 % [facility] Other [facility] Other 09-20-2021 16:00-0400 Systolic blood pressure 169 mm[Hg] [facility] Other [facility] Other 05-18-2021 15:40-0500 Body height 147.32 cm [facility] Other [facility] Other 05-18-2021 15:40-0500 Body mass index (BMI) [Ratio] 26.5 kg/m2 [facility] Other [facility] Other 05-18-2021 15:40-0500 Body temperature 97.2 [degF] [facility] Other [facility] Other 05-18-2021 15:40-0500 Body weight 57.52 kg [facility] Other [facility] Other 05-18-2021 15:40-0500 Diastolic blood pressure 79 mm[Hg] [facility] Other [facility] Other 05-18-2021 15:40-0500 Respiratory rate 18 /min [facility] Other [facility] Other 05-18-2021 15:40-0500 SaO2% (BldA) [Mass fraction] 97 % [facility] Other [facility] Other 05-18-2021 15:40-0500 Systolic blood pressure 137 mm[Hg] [facility] Other [facility] Other Encounters Encounter Date Encounter Type Care Provider Facility Start: 03-29-2024 End: 03-29-2024 ambulatory [facility] Start: 01-08-2024 End: 01-08-2024 ambulatory [facility] Work Phone: Start: 01-08-2024 End: 01-08-2024 Patient encounter procedure [facility] Physician [facility] Work Phone: Start: 01-01-2024 Non-patient / Non-visit [facility] Physician [facility] Professional [email or web address] Work Phone: Start: 11-07-2023 End: 11-07-2023 ambulatory MIRTA TERAN Not Available Start: 09-27-2023 End: 09-27-2023 ambulatory SHEYLA BEYERMIS Not Available Start: 09-25-2023 End: 09-25-2023 ambulatory [facility] Work Phone: Start: 09-25-2023 End: 09-25-2023 Patient encounter procedure [facility] Physician [facility] Work Phone: Start: 09-04-2023 End: 09-04-2023 ambulatory [facility] Start: 08-08-2023 End: 08-08-2023 ambulatory [facility] Other [facility] Other Start: 08-08-2023 Telephone encounter [facility] Start: 08-04-2023 End: 08-04-2023 ambulatory [facility] Start: 07-11-2023 End: 07-11-2023 ambulatory [facility] Mary Grace Other [facility] Other Start: 07-11-2023 Telephone encounter [facility] Start: 05-30-2023 End: 05-30-2023 ambulatory [facility] Mary Grace Other [facility] Other Start: 05-30-2023 Office outpatient visit 25 minutes [facility] Mary Grace [facility] Start: 05-23-2023 End: 05-23-2023 ambulatory [facility] Mary Grace Other [facility] Other Start: 05-23-2023 Telephone encounter [facility] Mary [facility] Start: 01-30-2023 End: 01-30-2023 ambulatory [facility] Mary [facility] Other [facility] Other Start: 01-30-2023 Encounter by jose r link [facility] Start: 01-30-2023 Office outpatient visit 25 minutes [facility] Start: 10-27-2022 End: 10-27-2022 ambulatory [facility] Mary Grace Other [facility] Other Start: 10-27-2022 Telephone encounter [facility] Mary [facility] Start: 10-26-2022 End: 10-27-[address] JOHN PERDOMO Facility: Start: 08-30-2022 End: 08-30-2022 ambulatory [facility] Mary Grace Other [facility] Other Start: 08-30-2022 Office outpatient visit 25 [...] End: 05-30-2022 ambulatory [facility] Mary Grace Other [facility] Other Start: 05-30-2022 Office outpatient visit 25 minutes [facility] Start: 05-27-2022 End: 05-28-[address] JOHN PERDOMO Facility:[facility] Start: 05-23-2022 Telephone encounter [facility] Start: 05-23-2022 End: 05-24-[address] JOHN PERDOMO [facility] Other Start: 05-14-2022 End: 05-15-2022 ambulatory CARMINA ROSALES Facility:[facility] Start: 05-12-2022 End: 05-12-2022 ambulatory [facility] Mary [facility] Other [facility] Other Start: 05-12-2022 Telephone encounter Genvea Mary Grace [facility] Start: 05-11-2022 End: 05-12-2022 ambulatory CARMINA ROSALES Facility:[facility] Start: 03-17-2022 End: 03-18-[address] JOHN PERDOMO Facility:[facility] Start: 01-27-2022 End: 01-27-2022 ambulatory [facility] Mary Grace Other [facility] Other Start: 01-27-2022 Office outpatient visit 25 minutes [facility] Mary [facility] Start: 01-21-2022 End: 01-22-[address] JOHN PERDOMO Facility:[facility] Start: 01-17-2022 End: 01-18-[address] JOHN PERDOMO Facility:[facility] Start: 01-13-2022 End: 01-13-2022 ambulatory [facility] Mary Grace Other [facility] Other Start: 01-13-2022 Telephone encounter [facility] Start: 12-16-2021 Telephone encounter [facility] Start: 12-16-2021 End: 12-17-[address] JOHN PERDOMO [facility] [employer] Other Start: 12-09-2021 End: 12-10-2021 ambulatory JOHN PERDOMO Facility:[facility] Start: 12-08-2021 End: 12-08-2021 ambulatory [facility] Mary Grace Other [facility] Other Start: 12-08-2021 Telephone encounter [facility] Mary [facility] Start: 12-07-2021 End: 12-07-[address] JOHN PERDOMO Facility:[facility] Start: 12-06-2021 End: 12-07-[address] JOHN PERDOMO Facility:[facility] Start: 12-01-2021 End: 12-02-[address] JOHN PERDOMO Facility:[facility] Start: 11-19-2021 End: 11-20-[address] JOHN PERDOMO Facility:[facility] Start: 11-01-2021 End: 11-01-2021 ambulatory [facility] Mary Grace Other [facility] Other Start: 11-01-2021 Encounter by jose parrish [facility] Start: 10-28-2021 End: 10-28-2021 ambulatory [facility] Mary Grace Other [facility] Other Start: 10-28-2021 Telephone encounter [facility] Start: 10-13-2021 End: 10-13-2021 ambulatory [facility] Mary Grace Other [facility] Other Start: 10-13-2021 Encounter by compute r link [facility] Start: 10-06-2021 End: 10-06-2021 ambulatory [facility] Mary Grace Other [facility] Other Start: 10-06-2021 Telephone encounter [facility] Mary [facility] Start: 09-21-2021 End: 09-21-2021 ambulatory [facility] Mary Grace Other [facility] Other Start: 09-21-2021 Telephone encounter [facility] Mary [facility] Start: 09-20-2021 End: 09-20-2021 ambulatory [facility] Mary Grace Other [facility] Other Start: 09-20-2021 Office outpatient visit 25 minutes [facility] Mary Grace [facility] Start: 08-01-2021 End: 08-01-2021 ambulatory [facility] Mary Grace Other [facility] Other Start: 08-01-2021 Encounter by compute r link [facility] Mary [facility] Start: 07-18-2021 End: 07-18-2021 ambulatory [facility] Mary Grace Other [facility] Other Start: 07-18-2021 Encounter by compute r link [facility] Mary [facility] Start: 05-18-2021 End: 05-18-2021 ambulatory [facility] Mary Grace Other [facility] Other Start: 05-18-2021 Office outpatient visit 25 minutes Geneva Jenkins [facility] Neph[facility] Plan of Treatment Date Care Activity Detail Author Immunofixation for Urine Fir [facility] Renal function 1999 panel - Serum or Plasma [facility] enter Renal function 1999 panel - Serum or Plasma [facility] Immunizations Immunization Date Immunization Notes Care Provider Fa cility NEGATED: Highlighted row has not occurred!06-05-2019 influenza, high dose seasonal, preservative-free Patient Objection Geneva Jenkins Other [facility] Other Payers Date Payer Category Payer Medicare [id number] 1958 Unknown [id number] 1950 Unknown [id number] 2.16.8 40.1.767484.3.579.2.647 1950 Unknown [id number] 2.16.84 0.1.673154.3.579.2.593 1950 Unknown [id number] 2.16.84 0.1.820406.3.579.2.593 1950 Unknown [id number] 2.16.84 0.1.377573.3.579.2.593 1950 Unknown [id number] 2.16.84 0.1.731510.3.579.2.593 1950 Unknown [id number] 2.16.84 0.1.466458.3.579.2.593 1950 Unknown [id number] 2.16.84 0.1.771249.3.579.2.593 1950 Unknown [id number] 2.16.84 0.1.551809.3.579.2.593 1951 Unknown [id number] 2.16.84 0.1.755485.3.579.2.593 1951 Unknown [id number] 2.16.84 0.1.049285.3.579.2.593 1951 Unknown [id number] 2.16.84 0.1.344333.3.579.2.593 1951 Unknown [id number] 2.16.84 0.1.409475.3.579.2.593 1951 Unknown [id number] 2.16.84 0.1.665080.3.579.2.593 1951 Unknown [id number] 2.16.84 0.1.432438.3.579.2.593 1951 Unknown [id number] 2.16.84 0.1.687199.3.579.2.593 1951 Unknown [id number] 2.16.84 0.1.202803.3.579.2.593 1950 Unknown [id number] 2.16.84 0.1.629587.3.579.2.593 1950 Unknown [id number] 2.16.84 0.1.330514.3.579.2.593 1951 Unknown [id number] 2.16.84 0.1.303709.3.579.2.593 1950 Unknown [id number] 2.16.84 0.1.092079.3.579.2.593 1950 Unknown [id number] 2.16.84 0.1.211016.3.579.2.593 1950 Unknown [id number] 2.16.84 0.1.547059.3.579.2.1259 1950 Unknown [id number] 2.16.84 0.1.535575.3.579.2.1259 Self-pay Self Pay [id number] Unknown Regular Insurance [id number] Social History Date Type Detail Facility Unknown if ever smoked [facility] Other Sex Assigned At Sex Assigned At Bir th [facility] Other Start: 11-23-2017 End: 01-08-2024 Tobacco smoking status NHIS Never smoked tobacco (finding) [facility] Start: 1950 Sex Assigned At Female F [facility] Clinical Notes 04-27-2020 to 03-29-2024 Note Date & Type Note Facility 03-29-2024 Note [place] [facility] Subjective Claudia Estrella is a 73 y.o. year old female patient being seen for follow up 6 mo follow up CAD, chronic diastolic heart failure, and hypertension. Last labs were drawn in January 2024. She isn't taking midodrine as much, and now only using PRN. Says she has occasional right-sided chest pain, above her breast. C/o fatigue. Patient Active Problem List Diagnosis Coronary arteriosclerosis [...] glaucoma (POAG) of both eyes, mild stage Hyperlipidemia Hyperuricemia Hypokalemia Microscopic hematuria Nontoxic multinodular goiter Secondary hyperparathyroidism (CMS/HCC) Family History Problem Relation Name Age of [...] mmHg. She is symptomatic with that. After visit with me on 08/04/2023 and due to orthostatic hypotension and no evidence of leg edema I reduced her Bumex but she ended up having significant volume overload and was admitted to the hospital for diuresis. She did well with intravenous diuretic therapy. Her diuretic therapy was adjusted. Her last visit with me was on 09/04/2023. At that time she was doing reasonably well. Today she reports that she has been doing well. She still has no significant lower extremity edema. She has no shortness of breath on exertion, NYHA class I. No palpitations. She reports having right sided chest discomfort that happens haphazardly without any particular causative etiology. Review of Systems Constitutional: Positive for malaise/fatigue. Cardiovascular: Positive for chest pain (right-sided). Respiratory: Positive for wheezing. Gastrointestinal: Positive for nausea. All other systems reviewed and are negative. Objective Visit Vitals BP 98/62 (BP Location: Left arm, Patient Position: Standing) Pulse 66 Ht 1.422 m (4' 8 ) Wt 56.7 kg (125 lb) SpO2 96% BMI 28.02 kg/m??? Smoking Status Never BSA 1.5 m??? [...] Spironolactone Rash Medications Current Outpatient Medications: allopurinol (Zy (more content not included)... [facility] 09-04-2023 Note [place] [facility] Subjective Claudia Estrella is a 73 y.o. year old female patient being seen for follow up [facility] for CHF. She has not seen [...] 90 tablet, Rfl (more content not included)... [facility] 08-04-2023 Note [place] [facility] Subjective Claudia Estrella is a 73 [...] Rfl: 3 ergocalciferol (Vitamin D-2) 1.25 MG (06133 UT) capsule, Take 1 capsule by mouth 1 (one) time per week., Disp: , Rfl: ferrous sulfate 325 (65 Fe) M (more content not included)... [facility] 07-11-2023 Note Reviewed pt's b/p si [...] to evaluate symptoms and response. Carmina Rosales DIANETIC COUNSELOR Division of Cardiology, [facility]- [phone] Pager- [phone] Email- [email or web address] 05-30-2023 Evaluation note Encounter Date Diagnosis [...] down the progression of CKD. May, Corky farah kid w cr kid I-IV (ICD-10 - [...] has adequate Iron stores. Continue oral iron. [facility] Other 07-31-2023 Evaluation note* Encounter Date Diagnosis Assessment Notes [...] down the progression of CKD. Dec, Corky farah kid w cr kid I-IV (ICD-10 - [...] has adequate Iron stores. Continue oral iron. [facility] Other 02-28-2023 Evaluation note* Encounter Date Diagnosis Assessment Notes [...] past. Will defer this to the PCP. [facility] Other 11-28-2022 Evaluation note* Encounter Date Diagnosis [...] an adequate Iron stores. Continue oral iron. [facility] Other 11-21-2022 Evaluation note* Encounter Date Diagnosis Assessment Notes Treatment Notes Treatment Clinical Notes May, CKD (chronic kidney disease) stage 4, GFR 15-29 ml/min (ICD-10 - N18.4) [facility] Other 07-28-2022 Evaluation note* Encounter Date Diagnosis [...] an adequate Iron stores. Continue oral iron. [facility] Other 03-22-2022 Evaluation note* Encounter Date Diagnosis Assessment Notes Treatment Notes Treatment Clinical Notes Aug, Hypokalemia (ICD-10 - E87.6) [facility] Other 03-21-2022 Evaluation note* Encounter Date Diagnosis [...] an adequate Iron stores. Continue oral iron. [facility] Other 01-16-2022 Evaluation note* Encounter Date Diagnosis Assessment Notes Treatment Notes Treatment Clinical Notes Jul, Hyperuricemia (ICD-1 0 - E79.0) [facility] Other 11-16-2021 Evaluation note* Encounter Date Diagnosis [...] an adequate Iron stores. Continue oral iron. [facility] Other [id number] NoteRounds at this time with MURPHY Amor, [...] MURPHY Amor notified Taylor Fisher & Maryan Lopez.TrihealthComment on above:Result Comment: Electronically Signed By: Zuleyma Shin RN\.br\Date and Time Signed: 05/04/20 13:53 [id number] NoteBasic Information Cardiology Progress Subjective Cardiology consulted over weekend for chest discomfort post operatively. Her EKG was non-acute and troponin trended negative. She does have a photoengraving proofer apprentice and reportedly had stress testing in August [...] mg/dL High (05/04/20 12:12:00) POC Device SN: [id number] (05/04/20 12:12:00) POC Username: NESHA COTA (05/04/20 [...] prefers all testing to be performed at [facility]. Faxed notes to her primary photoengraving proofer apprentice's office, Dr Fish. Attempted to schedule stress testing with [facility]. Ordered: EC Stress Echo Complete w/ Contrast 2. Hypertension (I10: Essential (primary) hypertension) Continue current medications and follow up with primary photoengraving proofer apprentice on discharge. 3. Diabetes (E11.9: Type 2 [...] discuss this management further with her primary photoengraving proofer apprentice, but agreeable to starting statin for now. Patient is offered in-patient stress echocardiogram but declines as she wants to be discharged. She is offered out patient stress testing at [facility] tomorrow am and she prefers to have this done at [facility]. Per Central Scheduling at [facility], Dobutamine Stress Echo's are not performed at the facility. She will have close FU with Dr Fish to move forward with testing. D/W Dr Guzmán. Faxed info from [facility] Hospital stay to her primary photoengraving proofer apprentice. Attestation Discussed patient findings and plan of [...] tab(s), Oral, Bedtime saturnino (more content not included)...TrihealthComment on above: Result Comment: Electronically Signed By: Trudy SUAZO CNP\.br\Date and Time Signed: 05/04/20 13:15 EST\.br\Electronically Co-Signed By: Jay Jay Ramírez MD\.br\Date and Time Co-Signed: 05/04/20 13:19 [id number] NoteIV removed. nurse electrical prospecting observer emptied. patient and patients daughter verbalized understanding of discharge teaching. patient refused flu vaccination. patient did not verbalize any questions or concerns atthis time.[facility]11-02-2020 Note Admission Information Admitting Physician - JUN [...] another day versus following up with her photoengraving proofer apprentice and she has opted to do the latter. This is reasonable as she is chest pain-free at rest as well as on exertion. Patient is already on lisinopril, metoprolol, aspirin. Lipitor 20 mg was added for further risk reduction. She will follow-up with her primary photoengraving proofer apprentice Dr. Fish. Regarding her recent Ortho surgery she will do weightbearing activity as tolerated and use crutchesfor assistance with ambulation. Dr. Kushal Guzmán Hospitalist This report was transcribed using voice recognition software. Every effort was made to ensure accuracy, however, inadvertently computerized hvac manager mistakes may be present. Significant Findings POWERSCRIBE [...] pain) Ordered: Hospital Discharge Day 30 Min/Less 28101 2. Hypertension (I10: Essential (primary) hypertension) Ordered: Hospital Discharge Day 30 Min/Less 34376 3. Diabetes (E11.9: Type 2 diabetes mellitus without complications) Ordered: atorvastatin, 20 mg = 1 tab(s), Oral, Bedtime, # 30 tab(s), Refills(s) 1, Pharmacy: [facility]/pharmacy #[id number], 141.5, cm, 04/24/20 13:16:00 EDT, Height/Length Dosing, 69, kg, 05/02/20 5:50:00 EDT, Weight Dosing Hospital Discharge Day 30 Min/Less 15963 4. Acute medial meniscus tear of left knee (S83.242A: Other tear of medial meniscus, current injury, left knee, initial encounter) Ordered: Hospital Discharge Day 30 Min/Less 03346 5. Localized osteoarthritis of left knee (M17.12: Unilateral primary osteoarthritis, left knee) Ordered: Hospital Discharge Day 30 Min/Less 74781 6. No contraindication to deep vein thrombosis (DVT) prophylaxis (Z78.9: Other specified health status) Ordered: Hospital Discharge Day 30 Min/Less 96120 Bruit (R09.89: Other specified symptoms and signs [...] With When Contact Information Follow up with [facility] Within 1 week Additional Instructions: JOHN PERDOMO [address] [place] [address]- Business (1) Additional Instructions: David Talamantes [address] [place] [id number]- Business (1) Additional Instructions: Keep scheduled (more content not included)...TrihealthComment on above:Result Comment: Electronically Signed By: Kushal GUZMÁN MD\.br\Date and Time Signed: 05/04/20 12:[id number] [address]Dr. Amir rounded with patient earlier. CRM [...] time. Anticipated discharge 05/04/2020 home. CRM to follow.TrihealthComment on above:Result Comment: Electronically Signed By: Ab WU, Terri Ramirez\.br\Date and Time Signed: 05/02/20 10:06 [id number] NoteReason for Consultation Chest pain postoperatively History of Present Illness Mrs. Estrella is a very pleasant 70-year-old diabetic female with hypertension, unknown cholesterol, previously seen by photoengraving proofer apprentice Dr. Fish in September 2019 for what [...] testing apparently took place in a private photoengraving proofer apprentice office, so I am unsure whether we [...] test in September 2019 at a private photoengraving proofer apprentice 's office, reportedly LV dysfunction per thepatient, [...] she undergo a dobutami (more content not included)...TrihealthComment on above:Result Comment: Electronically Signed By: Eleuterio VIGIL, John Olson\.br\Date and Time Signed: 05/02/20 08:35 [id number] NoteBasic Information Accompanied by: Family member Source of History: Self Present at Bedside: Family member Referral Source: Recovery room History Limitation: None Chief Complaint chest pain History of Present Illness Pt is a 70 F PMH HTN, HLD admitted from PACU. pt had a repair of a left medial meniscus tear with Dr. Talamantes of [facility]. Pt was in PACU recovering, had a [...] 84 mg/dL (05/01/20 16:07:00) POC Device SN: [id number] (05/01/20 16:07:00) POC Username: ALEXIA HALL (05/01/20 16:07:00) Diagnostic Results EKG NSR [address]-T wave changes Images No qualifying data available. Assessment/Plan 1. Other chest pain (R07.89: Other chest pain) - possible ACS, risk factors include DM, HTN, obesity - telemetry, troponin - ASA, fasting lipid profile - consult [facility] cardiology 2. Hypertension (I10: Essential (primary) hypertension) [...] acetaminophen 325 mg Tab (more content not included)...TrihealthComment on above:Result Comment: Electronically Signed By: JUN VIGIL, Nhung\.br\Date and Time Signed: 05/01/20 18:30 [id number] Note [id number]:[id number] noteNo InformationNortLower [facility] Other Evaluation note* Diagnosis Onset Date Resolution Status Anemia of renal disease acut e CKD (chronic kidney disease) stage 4, GFR 15-29 ml/min acute Hyperlipidemia acute [id number] acute Hyperuricemia acute Hypokalemia acute Microscopic hematuria acute Secondary hyperparathyroidism acute Type 2 diabetes mellitus wit h diabetic chronic kidney disease acute [facility] Work Phone: History general Narrative [...] eye surgery 04/2021 Hospitalization History see above [facility] [employer] Other Hisiios general Narrative - Reported* Type Description Date [...] RIGHT EYE 2021 Hospitalization History see above [facility] Other History general Narrative - Reported* Type [...] HEART CATH 12/2021 Hospitalization History see above [facility] Other Summary Purpose Family History No Family History Records Found Relationship Condition Age at Onset Recorded Date/T christophe daughter Hypertension Unknown father Unknown Heart disease Unknown Dementia Unknown Not Specified Unknown natural son Hypertension Unknown sister Family history of other condition Unknown Relationship Condition Age at Onset Recorded Date/T christophe daughter Hypertension Unknown father Unknown Heart disease Unknown Dementia Unknown mother Unknown son Hypertension Unknown sister Family history of other condition Unknown Advance Directives No Advanced Directives Records Found Advance Directive Response Recorded Date/ Time Advance Directives No July 27, 2021 11:36am Chief Complaint and Reason for Visit Chief Complaint RENAL 4 month Follow up Reason for Visit Anemia of renal dise ase CKD (chronic kidney disease) stage 4, GFR 15-29 ml/min Hyperlipidemia [id number] Hyperuricemia Hypokalemia Microscopic hematuria Secondary hyperparathyroidism Type 2 diabetes mellitus with diabetic chronic kidney disease Chief Complaint RENAL 4 MONTH F/U Reason for Visit Anemia of renal dise ase CKD (chronic kidney disease) stage 4, GFR 15-29 ml/min Hyperlipidemia [id number] Hyperuricemia Hypokalemia Microscopic hematuria Secondary hyperparathyroidism Type 2 diabetes mellitus with diabetic chronic kidney disease Additional Source Comments INFORMATION SOURCE (unrecogn ized section and content) DATE CREATED AUTHOR 03/07/2021 Jabier Maldonado [facility] DATE CREATED AUTHOR AUTHOR'S ORGANIZ ATION 08/05/2021 [facility] DATE CREATED AUTHOR AUTHOR'S ORGANIZ ATION 12/16/[address] [facility] DATE CREATED AUTHOR AUTHOR'S ORGANIZ ATION 10/29/2022 [facility] DATE CREATED AUTHOR AUTHOR'S ORGANIZ ATION 11/09/2023 [facility] DATE CREATED AUTHOR AUTHOR'S ORGANIZ ATION 03/30/2024 [facility] REASON FOR VISIT (unrecogniz ed section and content) CKDNew Refill RequestCOVIDCH G PHARMACYCKDDisregard previousClinicalFluid restrictionNo InformationClinicalNo InformationWEIGHTCKD and HTNMED CLARIFICATIONCRITICAL LABCKD and HTNCKD and HTNNo InformationCKD and HTNQuestion from appointmentNo InformationCKD and HTNFYI / MEDSClinical Care Teams (unrecognized sec tion and content) Team Status: Active Member Role Status Dates John Perdomo DO Primary Care Provider Active Team Status: Active Member Role Status Dates John Perdomo DO Primary Care Provider Active Start: January 01, 2024 Geneva Jenkins MD Attending Provider Active Start : January 01, 2024 Team Status: Inactive Member Role Status Dates John Perdomo DO Primary Care Provider Active Start: January 08, 2024 End: January 08, 2024 Geneva Jenkins MD Attending Provider Active Start : January 08, 2024 End: January 08, 2024 Team Status: Inactive Member Role Status Dates [...] BE BASED ON THE PRIMARY CLINICAL RECORDS. [facility] [employer] [facility]. provides no warranty or guarantee of the accuracy or completeness of information in this document.
[2024-05-09 11:15] LABS: Hematocrit 31.8 % (36.0-48.0); Hemoglobin 10.4 g/dL (12.0-16.0); Mean Corpuscular HGB Conc 32.7 g/dL (29.9-35.2); Mean Corpuscular Hemoglobin 28.3 pg (26.7-34.0); Mean Corpuscular Volume 86.6 fL (81.0-99.0); Mean Platelet Volume 11.7 fL (9.5-13.5); Platelet Count 167 10^3/uL (150-450); Red Blood Count 3.67 10^6/uL (4.20-5.40); Red Cell Distribution Width 15.1 % (11.0-15.0); White Blood Count 8.4 10^3/uL (4.0-11.0)
[2024-05-09 11:19] LABS: Bilirubin Urine NEGATIVE (NEGATIVE); Blood Urine NEGATIVE (NEGATIVE); Clarity Urine CLEAR (CLEAR); Color Urine LT. YELLOW (YELLOW); Glucose Urine UA NEGATIVE (NEGATIVE); Ketones Urine NEGATIVE (NEGATIVE); Leukocyte Esterase Urine MODERATE (NEGATIVE); Nitrite Urine NEGATIVE (NEGATIVE); Protein Urine 100 mg/dL (NEG/TRACE); Urobilinogen Urine 0.2 EU/dL (0.2-1.0); pH Urine 5.5 (5.0-9.0)
[2024-05-09 11:28] LABS: Albumin Level 3.3 g/dL (3.4-5.0); Anion Gap 15.7; BUN Creatinine Ratio 19.6; Calcium 9.2 mg/dL (8.5-10.1); Carbon Dioxide 25.9 mmol/L (21.0-32.0); Chloride 103 mmol/L (98-107); Estimated GFR (African America 26 (>=60 mL/min/1.73m^2); Estimated GFR (Non-African Ame 21 (>=60 mL/min/1.73m^2); Glucose 169 mg/dL (74-106); Phosphorus 4.8 mg/dL (2.6-4.7); Potassium 3.6 mmol/L (3.5-5.1); Sodium 141 mmol/L (136-145); Uric Acid 5.1 mg/dL (2.6-6.0)
[2024-05-09 11:33] LABS: Bacteria Urine SMALL #/HPF (NONE SEEN); Cast Seen? SEEN #/LPF (NONE SEEN); Crystals Seen? None Seen #/HPF (None Seen); Hyaline Casts Urine RARE; Mucus Urine TRACE (NONE SEEN); RBC Urine 0-2 #/HPF (0-2); Squamous Epithelial Cell Urine MODERATE #/LPF (NONE/RARE)
[2024-05-09 11:36] LABS: Creatinine Urine Random 62.86 mg/dL (20.00-300.00); Protein Creatinine Ratio Urine 1.94
[2024-05-09 11:47] LABS: Percent Iron Saturation 16.2 %
[2024-05-10 10:12] LABS: PTH, Intact 9 pg/mL (15-65)
== END 2024-05-09 10:33 | disposition home or self-care (01) ==
LOC: LAB 10:35
PROVIDERS: PCP Family Medicine; Visit Provider Internal Medicine
DX: E78.5 Hyperlipidemia, unspecified (principal); E87.6 Hypokalemia; R31.29 Other microscopic hematuria; E11.22 Type 2 diabetes mellitus with diabetic chronic kidney disease; I12.9 Hypertensive chronic kidney disease with stage 1 through stage 4 chronic kidney disease, or unspecified chronic kidney disease; N25.81 Secondary hyperparathyroidism of renal origin
CPT/HCPCS: 36415; 80069; 81001; 82306; 82570; 82728; 83540; 83550; 83735; 83970; 84156; 84550; 85027

== ENCOUNTER 2024-08-26 09:28 | Outpatient (OUT) | payer MEDICARE, OTHER, SELFPAY ==
[2024-08-26 10:00] LABS: Hematocrit 34.3 % (36.0-48.0); Hemoglobin 11.7 g/dL (12.0-16.0); Mean Corpuscular HGB Conc 34.1 g/dL (29.9-35.2); Mean Corpuscular Hemoglobin 29.1 pg (26.7-34.0); Mean Corpuscular Volume 85.3 fL (81.0-99.0); Mean Platelet Volume 11.2 fL (9.5-13.5); Platelet Count 202 10^3/uL (150-450); Red Blood Count 4.02 10^6/uL (4.20-5.40); Red Cell Distribution Width 14.6 % (11.0-15.0); White Blood Count 10.4 10^3/uL (4.0-11.0)
[2024-08-26 10:19] LABS: Bilirubin Urine NEGATIVE (NEGATIVE); Blood Urine TRACE-I (NEGATIVE); Clarity Urine CLEAR (CLEAR); Color Urine LT. YELLOW (YELLOW); Glucose Urine UA NEGATIVE (NEGATIVE); Ketones Urine NEGATIVE (NEGATIVE); Leukocyte Esterase Urine TRACE (NEGATIVE); Nitrite Urine NEGATIVE (NEGATIVE); Protein Urine >=300 mg/dL (NEG/TRACE); Urobilinogen Urine 0.2 EU/dL (0.2-1.0); pH Urine 5.5 (5.0-9.0)
[2024-08-26 10:27] LABS: Bacteria Urine TRACE #/HPF (NONE SEEN); Cast Seen? NONE SEEN #/LPF (NONE SEEN); Crystals Seen? None Seen #/HPF (None Seen); Mucus Urine NONE SEEN (NONE SEEN); RBC Urine 0-2 #/HPF (0-2); Squamous Epithelial Cell Urine FEW #/LPF (NONE/RARE); WBC Urine 0-2 #/HPF (NONE SEEN)
[2024-08-26 10:33] LABS: Protein Creatinine Ratio Urine 5.05; Total Protein Urine Random 197.4 mg/dL (<=11.9)
[2024-08-26 10:51] LABS: Albumin Level 3.4 g/dL (3.4-5.0); Anion Gap 15.1; BUN Creatinine Ratio 18.9; Calcium 9.3 mg/dL (8.5-10.1); Carbon Dioxide 28.1 mmol/L (21.0-32.0); Chloride 100 mmol/L (98-107); Estimated GFR (African America 24 (>=60 mL/min/1.73m^2); Estimated GFR (Non-African Ame 19 (>=60 mL/min/1.73m^2); Glucose 162 mg/dL (74-106); Percent Iron Saturation 21.8 %; Phosphorus 5.4 mg/dL (2.6-4.7); Potassium 3.2 mmol/L (3.5-5.1); Sodium 140 mmol/L (136-145); Uric Acid 6.3 mg/dL (2.6-6.0)
[2024-08-27 12:08] LABS: PTH, Intact 78 pg/mL (15-65)
== END 2024-08-26 09:29 | disposition home or self-care (01) ==
LOC: LAB 09:31
PROVIDERS: PCP Family Medicine; Visit Provider Internal Medicine
DX: E78.5 Hyperlipidemia, unspecified (principal); E87.6 Hypokalemia; R31.29 Other microscopic hematuria; E11.22 Type 2 diabetes mellitus with diabetic chronic kidney disease; I12.9 Hypertensive chronic kidney disease with stage 1 through stage 4 chronic kidney disease, or unspecified chronic kidney disease; N25.81 Secondary hyperparathyroidism of renal origin
CPT/HCPCS: 36415; 80069; 81001; 82306; 82570; 82728; 83540; 83550; 83735; 83970; 84156; 84550; 85027

== ENCOUNTER 2024-10-04 13:58 | Outpatient (OUT) | payer MEDICARE, OTHER, SELFPAY ==
--- NOTE | 2024-10-04 14:00 | CA_ITS ---
Patient Name: MADY ESTRELLA MR#: [id number] : 1950 Exam Date: 10/04/2024 Ordering Doctor: DR KARTHIK FISH M.D. ECHOCARDIOGRAM REPORT PROCEDURE: CA ECHO DOPPLER COMPLETE INDICATIONS: Heart failure, CABGx2, hypertension, diabetes COMPARISON: None. DESCRIPTION: COMPLETE ECHOCARDIOGRAM Real-time transthoracic echocardiography with 2D, M-mode, spectral and color flow Doppler performed. QUALITY: Technical quality was good. LEFT VENTRICLE: Normal chamber size. Thickened septal wall. Systolic function is normal. LV EF: Normal left ventricular ejection fraction, (55-60%). DIASTOLIC: Grade 2 diastolic dysfunction. Doppler data suggest elevated filling pressures. ATRIAL SEPTUM: Visually appears intact. LEFT ATRIUM: Mild chamber dilatation. RIGHT ATRIUM: Mild chamber dilatation. RIGHT VENTRICLE: Normal chamber size. Normal right ventricular systolic function. TRICUSPID VALVE: Normal mobility and thickness. No stenosis with mild regurgitation. Doppler studies reveal moderately (45-60) elevated right sided pressures. RVSP 59 mmHg MITRAL VALVE: Moderately thickened with slightly decreased mobility. Moderate mitral annular calcification. Trivial mitral regurgitation. No mitral valve stenosis. Mean gradient 3.3 mmHg. AORTIC VALVE: Normal trileaflet appearance. Mildly calcified aortic valve. Normal leaflet mobility. Doppler velocity suggests no aortic valve stenosis. No aortic regurgitation. AORTIC ROOT: Normal diameter and appearance, measuring 2.8 cm. Ascending aorta is normal in size, measuring 2.3 cm. PULMONIC VALVE: Normal thickness and mobility. No stenosis. Trivial regurgitation. PERICARDIUM: No evidence of pericardial effusion. IVC: IVC is dilated (2.6 cm), does not fully collapse. PLEURA: CONCLUSION: 1. Normal left ventricular size and systolic function. Estimated LVEF is 55 to 60%. 2. Normal right ventricular size and systolic function. 3. Mild biatrial dilatation. 4. Grade 2 diastolic dysfunction. Doppler data suggest elevated filling pressures. 5. Mild tricuspid regurgitation. 6. Moderately elevated right-sided pressures. RVSP is 59 mmHg. Adult Echocardiography Procedure Report Left Ventricle LVEDD (3.7 - 5.6 cm): 4.28 cm LVESD (2.2 - 4.0 cm): 2.88 cm LVIVS thickness (0.6 - 1.2 cm): 1.07 cm LVPW thickness (0.5 - 1.0 cm): 0.89 cm e': 0.07 m/s E - e': 18.49 LVOT Max Gradient: 2.42 mm[Hg] LVOT Area (cm2): 0.78 m/s Peak Velocity (LVOT): 0.78 m/s Mean Velocity (LVOT): 0.53 m/s LVOT Diameter 1.83 cm Left Atrium LA Volume Index (2D A2C): 35.30 ml/m2 Left Atrium Systolic Dimension: 3.52 cm Mitral Valve MV E to A Ratio: 1.79 Mitral Valve A-Wave Peak Velocity: 0.77 m/s Mitral Valve E-Wave Peak Velocity: 1.37 m/s Right Ventricle Aorta AO Root Diam: 2.83 cm Ascending Ao Diam: 2.32 cm Aortic Valve AoV Area (Peak Rafael): 1.25 cm2, 1.28 cm2 AoV Area (VTI): 1.09 cm2, 1.29 cm2 Peak Velocity(Antegrade Flow): 1.60 m/s, 1.63 m/s Peak Gradient(Antegrade Flow): 10.19 mm[Hg], 10.60 mm[Hg] Mean Velocity(Antegrade Flow): 1.11 m/s, 1.20 m/s Mean Gradient(Antegrade Flow): 5.56 mm[Hg], 6.31 mm[Hg] Velocity Time Integral: 42.92 cm, 50.60 cm Tricuspid Valve Peak Velocity (Regurgitant Flow): 3.13 m/s, 3.31 m/s Pulmonic Valve Mean Gradient: 3.38 mm[Hg] Mean Velocity: 0.84 m/s Peak Velocity: 1.33 m/s, 1.29 m/s Peak Gradient: 6.68 mm[Hg], 7.09 mm[Hg] Right Atrium Right Atrium Systolic Pressure: 40.13 ml, 40.13 ml Dictated by: Karthik Fish M.D. on 10/04/2024 at 16:55 Approved by: Karthik Fish M.D. on 10/04/2024 at 17:08
== END 2024-10-04 13:59 | disposition home or self-care (01) ==
LOC: CARD 13:59
PROVIDERS: PCP Family Medicine; Visit Provider Internal Medicine Interventional Cardiology
DX: I25.118 Atherosclerotic heart disease of native coronary artery with other forms of angina pectoris (principal); I50.32 Chronic diastolic (congestive) heart failure
CPT/HCPCS: 93306

== ENCOUNTER 2024-11-18 10:26 | Outpatient (OUT) | payer MEDICARE, OTHER, SELFPAY ==
--- OUTSIDE RECORDS SUMMARY | 2024-11-18 10:40 | XMS_ITS | CCD ---
Author Organization [facility] Care Team Providers Care Engineering Manager Electronics Name Role Phone JOHN PERDOMO Referring Unavailable PERDOMO, JOHN Primary Care Unavailable MOUKARBELKARTHIK V Attending Unavailable MOUKARBEL, KARTHIK Resendiz Admitting Unavailable Mary Grace, Geneva Unavailable LEANNE, DR JOHN Mcdonough Primary Care Unavailable BOBBY, KWAN Consulting Unavailable BOBBY, KWAN Admitting Unavailable BOBBY, KWAN Attending Unavailable PERDOMO, DR JOHN Mcdonough Primary [...] DR JOHN Mcdonough Primary Care Unavailable BOBBY, KWAN Admitting Unavailable BOBBY, KWAN Attending Unavailable BOBBY, KWAN Consulting Unavailable MARY GRACE, GENEVA Primary Care Unavailable PERDOMO, DR JOHN Mcdonough Primary Care Unavailable BOBBY, KWAN Consulting Unavailable BOBBY, KWAN Admitting Unavailable BOBBY, KWAN Attending Unavailable PERDOMO, DR JOHN Mcdonough Primary Care Unavailable TIMMIS, DR CARRION Consulting Unavailable TIMMIS, DR CARRION Admitting Unavailable TIMMIS, DR CARRION Attending Unavailable ZIEBER, DR RENETTA Abreu Consulting Unavailable MARY GRACE, GENEVA Consulting Unavailable MRAY GRACE, GENEVA Admitting Unavailable MARY GRACE, GENEVA [...] Unavailable MARY GRACE, GENEVA Attending Unavailable BOBBY, KWAN Admitting Unavailable BOBBY, KWAN Attending Unavailable MARY GRACE, GENEVA Primary Care Unavailable ZIEBER, DR RENETTA Abreu Consulting Unavailable BOBBY, KWAN Consulting Unavailable MOUKARBEL, DR ANGELES Consulting Unavailable MOUKARBEL, DR ANGELES Admitting Unavailable MOUKARBEL, DR ANGELES Attending Unavailable PERDOMO, DR JOHN Mcdonough Primary Care Unavailable PERDOMO, DR JOHN Mcdonough Primary Care Unavailable BOBBY, KWAN Consulting Unavailable BOBBY, KWAN Admitting Unavailable BOBBY, KWAN Attending Unavailable PERDOMO, DR JOHN Mcdonough Primary Care Unavailable MARY GRACE, GENEVA Admitting Unavailable MARY GRACE, GENEVA Attending Unavailable MARY GRACE, GENEVA Consulting Unavailable TIMMISSHEYLA H Attending Unavailable PERDOMOJOHN Referring Unavailable ZAHLMIRTA MAST Attending Unavailable ZAHLERMIRTA Attending Unavailable Perdomo John VIGIL Unavailable Unallocated , [place] Provider Primary Care Provi kortney KARTHIK FISH Attending Unavailable MOUKARBEL, KARTHIK Attending Unavailable Allergies Allergy Classification Reported Allergen(s) Allergy Type Date of Onset Reaction(s) Facility Opioid Agonists (1 source) HYDROmorphone Drug Allergy 4 Unknown Reaction [place] Penicillins (antibiotic) (1 source) Penicillin G Benzathine Drug Allergy 4 [facility] Spironolactone (1 source) Spironolactone Drug Allergy 4 [facility] (2 sources) Erythromycin; Translations: [ERYTHROMYCIN] Drug Allergy [address] [facility] Rep[facility] (2 sources) HYDROmorphone Drug Allergy [address] [facility] (2 sources) Penicillins; Translations: [PENICILLINS] Drug allergy (disorder) [address] [facility] (20 sources) Erythromycin Drug Allergy 2 anaphylaxis, Other, Unknown [facility] (20 sources) HYDROmorphone; Translations: [HYDROMORPHONE] Drug Allergy 2 [facility] (20 sources) Penicillin Drug Allergy Unknown [facility] Other (20 sources) Penicillin G Benzathine Drug allergy 3 [facility] (8 sources) Erythromycin; Translations: [ERYTHROMYCIN BASE] Drug Allergy 0 Anaphylaxis [facility] Repository (1 source) Penicillin Drug Allergy [facility] (7 sources) Spironolactone; Translations: [SPIRONOLACTONE] Drug Allergy 3 [facility] (2 sources) Penicillin G Drug Allergy 3 Other [facility] (1 source) Penicillins Drug Allergy 2 [facility] (1 source) Spironolactone Drug Allergy 4 [facility] Medications Current Medications Medication Drug Class(es) Dates Sig (Normalized) Sig (Original) allopurinol 100 mg oral tablet (20 sources) Xanthine Oxidase Inhibitor Start: 09-03-2024 take 1 tablet by mouth once daily Allopurinol 100 mg tablet Active 100 MG PO Daily September 03, 2024 3:38pm Start: 09-06-2023 End: 09-03-2024 take 1 tablet by mouth once daily Allopurinol 100 mg tablet Discontinued 0 .ROUTE .COMPLEX July 29, 2024 6:27pm September 03, 2024 3:42pm TAKE 1 TABLET BY MOUTH EVERY DAY Start: 09-05-2023 End: 09-06-2023 take 1 tablet by mouth once daily Allopurinol 100 mg tablet Discontinued 100 MG PO Daily September 05, 2023 5:29pm September 06, 2023 4:52pm FreeTextSig: TAKE 1 TABLET BY MOUTH EVERY DAY; Note: Source Status: Taking; Refills: 1; Qty: 90 Tablet; Provider: Mary Grace Bean ( ) amLODIPine 10 mg oral tablet (20 sources) Dihydropyridine Calcium Channel Ranjit Start: 10-28-2020 End: 09-03-2024 take 1 tablet by mouth once daily Amlodipine 10 mg tablet Active 10 MG PO Daily September 03, 2024 3:39pm aspirin 81 mg delayed release oral tablet (20 sources) Platelet Aggregation Inhibitor, Nonsteroidal Anti-inflammatory Drug Start: 09-25-2023 End: 09-03-2024 take 1 tablet by mouth once daily Aspirin 81 mg tablet,delayed release (DR/EC) Active 81 MG PO Daily September 03, 2024 3:39pm take 1 tablet by mouth once alayna [...] tablet (20 sources) HMG-CoA Reductase Inhibitor Start: 12-22-2022 End: 09-03-2024 take 1 tablet by mouth once daily Atorvastatin 40 mg tablet Active 40 MG PO Daily September 03, 2024 3:39pm Basaglar KwikPen 100 units/mL (20 sources) Basaglar [...] oral tablet (20 sources) Loop Diuretic Start: 09-25-2023 End: 01-08-2024 take 1 tablet by mouth twice daily Bumetanide 2 mg tablet Active 3 MG PO Twice daily January 08, 2024 12:04pm Start: 09-25-2023 End: 01-08-2024 take 3 mg by mouth twice daily Bumetanide Active 3 MG PO Twice daily January 08, 2024 1:04pm take 1.5 tablets by mouth in the morning bumetanide (Bumex) 2 MG tablet Take 1.5 tablets by mouth in the morning and 1.5 tablets before bedtime. Active take 1 tablet by yossi th twice daily Bumetanide 2 MG 1 1/2 TABLETS Orally TWICE A DAY Active take 0.5 tablet by m outh twice daily Bumetanide 2 MG 1/2 TABLET Orally TWICE A DAY Active clopidogrel 75 mg oral tablet (3 sources) P2Y12 Platelet Inhibitor take 1 tablet b y mouth every twenty-four hours Clopidogrel Bisulfate 75 MG 1 tablet Orally Once a day Active cycloSPORINE 0.5 mg/ml ophthalmic suspension (20 sources) Calcineurin Inhibitor Immunosuppressant cycloSPORINE (Restasis) 0.05 % ophthalmic emulsion 1 (one) time each day at the same time Active take 1 drop(s) into the eye(s) once daily Restasis 0.05 % 1 drop into affected eye Ophthalmic ONCE A DAY Active take 1 drop(s) into the eye(s) once daily Restasis 0.05 % 1 drop into affected eye Ophthalmic ONCE A DAY Active dexamethasone 0.7 mg drug implant (2 sources) Corticosteroid dexAMETHasone (Ozurdex) 0.7 MG ocular implant as directed Intravitreal Active docusate sodium 100 mg oral capsule (2 sources) Docusate Sodium (DSS) 100 MG capsule every 12 (twelve) hours Active dorzolamide (6 sources) Carbonic Anhydrase Inhibitor [...] mg/ml / timolol 5 mg/ml ophthalmic solution (9 sources) Carbonic Anhydrase Inhibitor, beta-Adrenergic Ranjit Start: 05-15-2024 End: 05-15-2025 take 1 drop(s) into the eye(s) in the morning dorzolamide-timolol (Cosopt) 2-0.5 % ophthalmic solution Indications: Primary open angle glaucoma (POAG) of both eyes, mild stage (CMS/HCC) Administer 1 drop into both eyes in the morning and 1 drop before bedtime. 10 mL 5 05/15/2024 05/15/2025 Active Start: 09-25-2023 dorzolamide-ti molol (Cosopt) 2-0.5 % ophthalmic solution Twice daily 09/25/2023 Active Start: 09-25-2023 take 1 drop(s) into the eye(s) twice daily Dorzolamide-Timolol 22.3-6.8 mg/mL drops Active 1 DROPS OPHTHALMIC Twice daily September 24, 2023 11:00pm FreeTextSi drop into affected eye Ophthalmic Twice a day; Note: Source Status: Taking; Provider: Mary Grace Bean ( ) Dorzolamide HCl- Timolol Mal 2-0.5 % 1 drop into affected eye Ophthalmic Twice a day Active doxazosin 4 mg oral tablet (20 sources) alpha-Adrenergic Ranjit Start: 01-08-2024 take 6 mg by mouth twice daily Doxazosin 4 mg tablet Active 6 MG PO Twice daily January 08, 2024 12:05pm Start: 09-25-2023 End: 01-08-2024 take 6 mg by mouth twice daily Doxazosin Active 6 MG P O Twice daily January 08, 2024 1:05pm Start: 10-24-2022 End: 01-08-2024 take 1 tablet by mouth twice daily Doxazosin 4 mg tablet Discontinued MG PO September 24, 2023 11:00pm January 08, 2024 12:08pm FreeTextSi 1/2 TABLETS Orally TWICE A DAY; Note: Source Status: Taking; Provider: Mary Grace Bean ( ) ergocalciferol 1.25 mg oral capsule (20 sources) Provitamin D2 Compound Start: 07-29-2024 Ergocalciferol (Bri min D2) 1,250 mcg (50,000 unit) capsule Active 03685 UNIT PO .COMPLEX 7 July 29, 2024 6:32pm 50,000 units orally every other week; Start: 09-25-2023 End: 07-29-2024 take 1 capsule by mouth every week Ergocalciferol (Vitamin D2) 1,250 mcg (50,000 unit) capsule Discontinued 50506 UNIT PO EVERY 2 WEEKS September 24, 2023 11:00pm July 29, 2024 6:33pm FreeTextSig: TAKE 1 CAPSULE BY MOUTH ONE TIME PER WEEK; Note: Source Status: Start; Refills: 2; Qty: 12 Capsule; Provider: Mary Grace Bean ( ) take 1 capsule by mo uth every week Vitamin D (Ergocalciferol) 1.25 MG (73477 UT) TAKE 1 CAPSULE BY MOUTH ONE TIME PER WEEK for 84 Active take 1 capsule by mo uth every other week Ergocalciferol 1.25 MG (21351 UT) 1 capsule Orally Q2 week for 90 days Active ferrous sulfate 325 mg oral tablet (20 sources) Start: 09-03-2024 Ferrous Sulfat e 325 mg (65 mg iron) tablet Active 325 MG PO Every 48 hours September 03, 2024 3:40pm Start: 09-06-2023 End: 09-03-2024 take 1 tablet by mouth every other day Ferrous Sulfate 325 mg (65 mg iron) tablet Discontinued 0 .ROUTE .COMPLEX March 12, 2024 8:48am September 03, 2024 3:42pm TAKE ONE TABLET BY MOUTH EVERY OTHER DAY FOR 90 DAYS Start: 09-06-2023 take 1 tablet by yossi th every other day Ferrous Sulfate Active 0 .ROUTE .COMPLEX September 06, 2023 4:49pm TAKE 1 TABLET BY MOUTH EVERY OTHER DAY Start: 09-05-2023 End: 09-06-2023 take 1 tablet by mouth every other day Ferrous Sulfate 325 mg (65 mg iron) tablet Discontinued 325 MG PO Every 48 hours 45 90 September 05, 2023 5:32pm September 06, 2023 3:49pm FreeTextSig: TAKE 1 TABLET BY MOUTH EVERY [...] DAY FOR 90 DAYS for 90 Active fluocinolone acetonide 0.19 mg drug implant (2 sources) Corticosteroid fluocinolone (Iluvien) 0.19 MG implant as directed Intravitreal Active hydrALAZINE hydrochloride 25 mg oral tablet (20 sources) Arteriolar Vasodilator Start: 09-25-19 End: 01-08-20 take 1 tablet by mouth three times daily Hydralazine 25 mg tablet Active 25 MG PO Three times daily January 08, 2024 12:09pm Start: 08-11-2022 take 1 tablet by yossi th three times daily hydrALAZINE (Apresoline) 50 MG tablet TAKE 1 TABLET BY MOUTH THREE TIMES A DAY FOR 90 DAYS 08/11/2022 Active Start: 09-20-2021 take 1 tablet by yossi th every twelve hours hydrALAZINE HCl 25 MG 1 tablet with food Orally bid for 90 day(s) Aug, Active take 1 tablet by yossi th every eight hours hydrALAZINE HCl 25 MG 1 tablet with food Orally Three times a day for 90 day(s) Active 3 ml insulin glargine 100 unt/ml pen injector (7 sources) Insulin Analog Start: 09-25-2023 End: 09-03-2024 Insulin Glargine (Basaglar Kwikpen U-100 Insulin) 100 unit/mL (3 mL) insulin pen Active 15 UNIT SUBCUT Three times daily as needed September 03, 2024 3:41pm Iron (3 sources) Iron 325 (65 Fe) MG TAKE 1 TABLET BY MOUTH EVERY OTHER DAY Orally EVERY OTHER DAY for 90 days Active take 1 tablet by mouth every oth day Iron 325 (65 Fe) MG TAKE 1 TABLET BY MOUTH EVERY OTHER DAY for 90 Active 24 hr isosorbide mononitrate 30 mg extended release oral tablet (2 sources) Nitrate Vasodilator Start: 08-17-2023 take 1 tablet by mouth once daily in the morning isosorbide mononitrate ER (Imdur) 30 MG 24 hr tablet TAKE 1 TABLET BY MOUTH EVERY MORNING *DO NOT CRUSH OR CHEW* 08/17/2023 Active isosorbide dinitrate 30 mg oral tablet (11 sources) Nitrate Vasodilator Start: 09-25-2023 take 1 tablet by mouth once daily Isosorbide Dinitrate 30 mg tablet Active 30 MG PO Daily September 24, 2023 11:00pm FreeTextSi tablet Orally ONCE A DAY; Note: Source Status: Taking; Provider: Mary Grace Bean ( ) take 1 tablet by yossi th every twenty-four hours Isosorbide Dinitrate 30 MG 1 tablet Orally ONCE A DAY Active take 1 tablet by yossi th every twenty-four hours Isosorbide Dinitrate 40 MG 1 tablet Orally ONCE A DAY Active latanoprost 0.05 mg/ml ophthalmic solution (14 sources) Prostaglandin Analog latanoprost (Xalatan) 0.005 % ophthalmic solution 1 (one) time each day at the same time Active take 1 drop(s) into the eye(s) [...] oral tablet (20 sources) l-Thyroxine Start: 09-25-2023 End: 09-03-2024 take 1 tablet by mouth once daily Levothyroxine 50 mcg tablet Active 50 MCG PO Daily September 03, 2024 3:42pm take 1 tablet by yossi th once daily in the morning Levothyroxine Sodium 50 MCG 1 tablet in the morning on an empty stomach Orally Once a day Active take 1 tablet by yossi th once daily in the morning Levothyroxine Sodium 25 MCG 1 tablet in the morning on an empty stomach Orally Once a day Active liothyronine sodium 0.005 mg oral tablet (2 sources) l-Triiodothyronine Start: 08-11-2023 take 2 tablets by mouth once daily liothyronine (Cytomel) 5 MCG tablet TAKE 2 TABLETS BY MOUTH ONCE A DAY 08/11/2023 Active metOLazone 2.5 mg oral tablet (20 sources) Thiazide-like Diuretic Start: 09-25-2023 Metolazone 2.5 mg tablet Active 2.5 MG PO Every 48 hours as needed September 24, 2023 11:00pm FreeTextSi tablet Orally MONDAY, MONDAY, MONDAY NEEDED; Note: Source Status: Taking; Provider: Mary Grace Bean ( ) take 1 tablet by mouth two times weekly metOLazone (Zaroxolyn) 2.5 MG tablet TAKE 1 TABLET BY MOUTH TWICE WEEKLY Active metOLazone 2.5 M G 1 tablet Orally MONDAY, MONDAY, MONDAY NEEDED Active metoprolol tartrate 50 mg oral tablet (20 sources) beta-Adrenergic Ranjit Start: 01-08-2024 Metopr olol Tartrate 50 mg tablet Active 75 MG PO Twice daily January 08, 2024 12:07pm Start: 09-25-2023 End: 01-08-2024 Metoprolol Tartrate 50 mg ta blet Discontinued MG PO September 24, 2023 11:00pm January 08, 2024 12:08pm FreeTextSi 1/2 tablet with food Orally Twice a day; Note: Source Status: Taking; Provider: Mary Grace Bean ( ) Start: 09-25-2023 End: 01-08-2024 take 75 mg by mouth twice daily Metoprolol Tartrate Ac tive 75 MG PO Twice daily January 08, 2024 1:07pm Start: 09-13-2022 take 1.5 tablets by mouth in the morning metoprolol tartrate (Lopressor) 50 MG tablet Take 1.5 tablets by mouth in the morning and 1.5 tablets before bedtime. 09/13/2022 Active Metoprolol Tartr ate 50 MG 1 1/2 tablet with food Orally Twice a day Active midodrine hydrochloride 5 mg oral tablet (5 sources) alpha-Adrenergic Agonist Start: 01-08-2024 take 1 tablet by mouth three times daily as needed Midodrine 5 mg tablet Active 5 MG PO Three times daily as needed January 07, 2024 11:00pm nitroglycerin 0.4 mg sublingual tablet (2 sources) Nitrate Vasodilator nitroglyceri n (Nitrostat) 0.[address] 1 TABLET UNDER TONGUE EVERY 5 MINUTES IF NEEDED FOR CHEST PAIN Active Completed/Discontinued Medications Medication Drug Class(es) Dates Sig (Normalized) Sig (Original) potassium chloride 20 meq extended release oral tablet (20 sources) Start: 09-25-2023 End: 11-16-2023 take 40 mEq by mouth three times daily Potassium Chloride Active 40 MEQ PO Three times daily 540 90 November 16, 2023 1:50pm Start: 04-10-2023 End: 11-16-2023 take 2 tablets by mouth three times daily Potassium Chloride 20 mEq tablet extended release Discontinued MEQ PO September 24, 2023 11:00pm November 16, 2023 12:52pm FreeTextSi Tablet Orally tid; Note: Source Status: Taking; Refills: 0; Qty: 540 Tablet; Provider: Mary Grace Bean ( ) Radha M20 20 MEQ TAKE 2 TABLETS BY MOUTH IN THE MORNING, 2 TABLETS AT NOON, AND 1 TABLET IN THE EVENING for 90 Active take 2 tablets by fl ut every twelve hours Potassium Chloride ER 20 [...] disease (5 sources) 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; Translations: [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] Onset: 2 Chronic Coronary atherosclerosis and other heart disease (2 sources) Presence of aortocoronary bypass graft; Translations: [Presence of aortocoronary bypass graft] Onset: 5 Episodic Deficiency and other anemia (20 sources) Anemia of renal disease; Translations: [Anemia in chronic kidney disease] 09-05-2023 Chronic Deficiency and other anemia (2 sources) Anemia in chronic kidney disease Chronic Diabetes mellitus with complications (20 sources) Disorder of kidney due to diabetes mellitus; Translations: [Type 2 diabetes mellitus with diabetic chronic kidney disease] Onset: 1 Resolved: 2 Chronic Disorders of lipid metabolism (7 sources) Hyperlipidemia; Translations: [Hyperlipidemia, unspecified] 09-25-2023 Chronic Essential hypertension (7 sources) Essential (primary) hypertension; Translations: [ESSENTIAL PRIMARY HYPERTENSION] Onset: 2 Chronic Fluid and electrolyte disorders (20 sources) Hypokalemia; Translations: [Hypokalemia] Onset: 1 Resolved: 2 Episodic Genitourinary symptoms and ill-defined conditions (15 sources) Other microscopic hematuria; Translations: [Microscopic hematuria] Onset: 1 Resolved: 2 Episodic Glaucoma (3 sources) Primary open angle glaucoma; Translations: [Primary open-angle glaucoma, bilateral, mild stage] Onset: 3 05-08-2023 Chronic Heart valve disorders (1 source) Rheumatic disorders [...] DEFICIENCY] Onset: 1 Resolved: 2 Episodic Other connective tissue disease (20 sources) Full thickness rotator cuff tear; Translations: [Complete rotator cuff tear or rupture of left shoulder, not specified as traumatic] Episodic Other diseases of kidney and ureters (20 sources) Secondary hyperparathyroidism; Translations: [Secondary hyperparathyroidism of renal origin] 09-25-2023 Chronic Other diseases of kidney and ureters (11 sources) Secondary hyperparathyroidism of renal origin; Translations: [Secondary hyperparathyroidism (of renal origin)] Onset: 1 Resolved: 2 Chronic Other eye disorders (3 sources) Scar of cornea of right eye; Translations: [Unspecified corneal scar and opacity] Onset: 3 05-08-2023 Episodic Other eye disorders (3 sources) Dry eyes; Translations: [Dry eye syndrome of bilateral lacrimal glands] Onset: 3 05-08-2023 Episodic Other non-traumatic joint disorders (20 sources) Arthralgia of the lower leg; Translations: [Right knee pain] Episodic Other nutritional; endocrine; and metabolic disorders (12 sources) 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 inflammatory arthritis and tophaceous disease; Translations: [Other abnormal blood chemistry] Onset: 1 Resolved: 2 Episodic Other nutritional; endocrine; and metabolic disorders (4 sources) Hyperuricemia; Translations: [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 [...] STRUCT RT FORARM] Onset: 06-04-2022 Episodic Other circulatory disease (2 sources) Orthostatic hypotension; Translations: [Orthostatic hypotension] Onset: 07-11-2023 Episodic Other lower respiratory disease (5 sources) [...] Name Value Interpretation Reference Range Facility 36on 11-06-2024 36 Regarding echo result from 10/04/2024: MD Michelle Tan MA Please tell her the echo showed normal cardiac function with evidence of extra fluid in the body. Depending on symptoms of shortness of breath, she can take extra 0.5 tablet of bumex on as needed basis. Follow up as planned. Patient informed. She verbalized understanding. Normal [facility] Office Visiton 09-16-2024 Follow-up visit [id number] Claudia Estrella 1950 F Date Provider Department Center 09/16/2024 [facility]KARTHIK FISH [facility] Family History Problem Relation Age of Onset Heart attack Mother Heart failure Mother Heart attack Father Family Status - Relation Status Age at Mother Father Level of Service:18810 ME OFFICE/OUTPATIENT ESTABLISHED MOD MDM 30 MIN Normal [facility] Erythrocyte distribution wid th Auto (RBC) [Ratio]on 08-26-2024 Erythrocyte distribution width (RBC) [Ratio] Erythrocyte distribution width [Ratio] by Automated count 11.0-15.0 [place] Estimated glomerular filtrat ion rate (GFR) non- Americanon 08-26-2024 GFR/1.73 sq M.predicted among non-blacks MDRD (S/P/Bld) [Vol rate/Area] Estimated glomerular filtration rate (GFR) non- Low >=60 mL/min/1.73m 2 [place] Hematocrit Auto (Bld) [Volum e fraction]on 08-26-2024 Hematocrit (Bld) [Volume fraction] Hematocrit [Volume Fraction] of Blood by Automated count Low 36.0-48.0 [place] Hemoglobin [Mass/volume] in Bloodon 08-26-2024 Hemoglobin (Bld) [Mass/Vol] Hemoglobin [Mass/volume] in Blood Low 12.0-16.0 [place] Iron binding capacity [Mass/ volume] in Serum or Plasmaon 08-26-2024 Iron binding capacity [Mass/Vol] Iron binding capacity [Mass/volume] in Serum or Plasma Low 250.0-450.0 [place] Iron saturation [Mass Fracti on] in Serum or Plasmaon 08-26-2024 Iron saturation [Mass fraction] Iron saturation [Mass Fraction] in Serum or Plasma [place] [facility] - Chemistry and C hemistry - challengeon 08-26-2024 Albumin [Mass/Vol] 3.4 g/dL 3.4-5.0 [facility] Calcium [Mass/Vol] 9.3 mg/dL 8.5-10.1 [facility] Chloride [Moles/Vol] 100 mmol/L 98-107 [facility] CO2 [Moles/Vol] 28.1 mmol/L 21.0-32.0 [facility] Creatinine [Mass/Vol] 2.44 mg/dL High 0.55-1.[address] [facility] Ferritin [Mass/Vol] 145.0 ng/mL 8.0-252.0 [facility] GFR/1.73 sq M.predicted MDRD (S/P/Bld) [Vol rate/Area] 24 mL/min/{1.73_m2} Low >=60 mL/min/1.73m 2 [place] Glucose [Mass/Vol] 162 mg/dL High 74-106 [facility] Iron [Mass/Vol] 53.0 ug/dL 50.0-170.0 [place] Magnesium [Mass/Vol] 2.0 mg/dL 1.8-2.4 [facility] Potassium [Moles/Vol] 3.2 mmol/L Low 3.5-5.[address] [facility] Sodium [Moles/Vol] 140 mmol/L 136-145 [facility] Urate [Mass/Vol] 6.3 mg/dL High 2.6-6.0 [facility] Urea nitrogen [Mass/Vol] 46.0 mg/dL High 7.0-18.0 [place] Urea nitrogen/Creatinine [Mass ratio] 18.9 mg/mg [place] [facility] - Urinalysison Protein (U) [Mass/Vol] 197.4 mg/dL High <=11.9 [facility] Leukocytes [#/volume] correc stacy for nucleated erythrocytes in Blood by Automated counon 08-26-2024 WBC corrected for nucl RBC Auto (Bld) [#/Vol] Leukocytes [#/volume] corrected for nucleated erythrocytes in Blood by Automated coun 4.0-11.0 [place] MCH Auto (RBC) [Entitic mass ]on 08-26-2024 MCH (RBC) [Entitic mass] MCH [Entitic ma ss] by Automated count 26.7-34.0 [place] MCHC Auto (RBC) [Mass/Vol]on 08-26-2024 MCHC (RBC) [Mass/Vol] MCHC [Mass/volume] by Automated count 29.9-35.2 [place] MCV Auto (RBC) [Entitic vol] on 08-26-2024 MCV (RBC) [Entitic vol] MCV [Entitic vol ume] by Automated count 81.0-99.0 [place] No Panel Informationon 08-26 25-Hydroxy Vitamin D Total 51.6 ng/mL [place] Comment on above: <20 ng/mL Vit D defi cient20-<30 ng/mL Vit D [id number] ng/mL Vit D sufficient>100 ng/mL Potential Toxicity Parathyroid Hormone (Intact) 78 pg/mL Abnormal 15-65 [place] Comment on above: Performed at: [x+1] - [facility] [id number] Director: Curry Rizzo PhD, Phone: [phone] Phosphorus Level 5.4 mg/dL High 2.6-4.7 [facility] Urine Random Creatinine 39.10 mg/dL 20.00-300.0 0 [place] Platelet mean volume Auto (B ld) [Entitic vol]on 08-26-2024 Platelet mean volume (Bld) [Entitic vol] Platelet mean volume [Entitic volume] in Blood by Automated count 9.5-13.5 [place] Platelets Auto (Bld) [#/Vol] on 08-26-2024 Platelets (Bld) [#/Vol] Platelets [#/vol ume] in Blood by Automated count 150-450 [place] RBC Auto (Bld) [#/Vol]on RBC (Bld) [#/Vol] Erythrocytes [#/volume] in Blood by Automated count Low 4.20-5.40 [place] Serum or plasma anion gap de terminationon 08-26-2024 Anion gap [Moles/Vol] Serum or plasma anion gap determination [place] Urine protein/creatinine rat ioon 08-26-2024 Protein/Creatinine (U) [Ratio] Urine protein/creatinine ratio [place] Ophthalmic OCT panelon 05-15 [facility] Right Eye Images reviewed and comparison made to baseline, Images reviewed. To assess optic nerve function and for use in future follow-up. Reliability: good and adequate. Left Eye Images reviewed and comparison made to baseline, Images reviewed. To assess optic nerve function and for use in future follow-up. Reliability: good and adequate. Notes Superior nerve fiber layer (NFL) thinning both eyes (OU). Stable. [facility] Radiology Study observation (narrative) [facility] Optical coherence tomography study reporton 05-15-2024 [facility] Radiology Study observation (narrative) [facility] Erythrocyte distribution wid th Auto (RBC) [Ratio]on 05-09-2024 Erythrocyte distribution width (RBC) [Ratio] Erythrocyte distribution width [Ratio] by Automated count High 11.0-15.0 [place] Estimated glomerular filtrat ion rate (GFR) non- Americanon 05-09-2024 GFR/1.73 sq M.predicted among non-blacks MDRD (S/P/Bld) [Vol rate/Area] Estimated glomerular filtration rate (GFR) non- Low >=60 mL/min/1.73m 2 [place] Hematocrit Auto (Bld) [Volum e fraction]on 05-09-2024 Hematocrit (Bld) [Volume fraction] Hematocrit [Volume Fraction] of Blood by Automated count Low 36.0-48.0 [place] Hemoglobin [Mass/volume] in Bloodon 05-09-2024 Hemoglobin (Bld) [Mass/Vol] Hemoglobin [Mass/volume] in Blood Low 12.0-16.0 [place] Iron binding capacity [Mass/ volume] in Serum or Plasmaon 05-09-2024 Iron binding capacity [Mass/Vol] Iron binding capacity [Mass/volume] in Serum or Plasma 250.0-450.0 [place] Iron saturation [Mass Fracti on] in Serum or Plasmaon 05-09-2024 Iron saturation [Mass fraction] Iron saturation [Mass Fraction] in Serum or Plasma [place] [facility] - Chemistry and C hemistry - challengeon 05-09-2024 Albumin [Mass/Vol] 3.3 g/dL Low 3.4-5.0 [facility] Calcium [Mass/Vol] 9.2 mg/dL 8.5-10.1 [facility] Chloride [Moles/Vol] 103 mmol/L 98-107 [facility] CO2 [Moles/Vol] 25.9 mmol/L 21.0-32.0 [facility] Creatinine [Mass/Vol] 2.24 mg/dL High 0.55-1.[address] [facility] Ferritin [Mass/Vol] 151.0 ng/mL 8.0-252.0 [facility] GFR/1.73 sq M.predicted MDRD (S/P/Bld) [Vol rate/Area] 26 mL/min/{1.73_m2} Low >=60 mL/min/1.73m 2 [place] Glucose [Mass/Vol] 169 mg/dL High 74-106 [facility] Iron [Mass/Vol] 41.0 ug/dL Low 50.0-170.0 [place] Magnesium [Mass/Vol] 2.0 mg/dL 1.8-2.4 [facility] Potassium [Moles/Vol] 3.6 mmol/L 3.5-5.[address] [facility] Sodium [Moles/Vol] 141 mmol/L 136-145 [facility] Urate [Mass/Vol] 5.1 mg/dL 2.6-6.0 [facility] Urea nitrogen [Mass/Vol] 44.0 mg/dL High 7.0-18.0 [place] Urea nitrogen/Creatinine [Mass ratio] 19.6 mg/mg [place] Bilirubin Ql (U) Negative NEGATIVE [facility] Glucose (U) [Mass/Vol] Negative NEGATIVE [facility] Ketones Ql (U) Negative NEGATIVE [place] pH (U) 5.5 [pH] 5.0-9.0 [place] Specific gravity (U) [Rel density] 1.020 1.005-1.025 [place] Urobilinogen Qn (U) 0.2 {Kelly'U}/dL 0.2-1.0 [place] [facility] - Specimen inform ationon 05-09-2024 Appearance (U) CLEAR CLEAR [place] Color (U) LT. YELLOW YELLOW [place] [facility] - Urinalysison Hyaline casts LM Ql (Urine sed) RARE [place] Leukocyte esterase Test strip Ql (U) MODERATE Abnormal NEGATIVE [place] Mucus Ql (Urine sed) TRACE Abnormal NONE SEEN [facility] Nitrite Ql (U) Negative NEGATIVE [place] Protein (U) [Mass/Vol] 122.0 mg/dL High <=11.9 [facility] Protein Ql (U) 100 mg/dL Abnormal NEG/TRACE [place] Leukocytes [#/volume] correc stacy for nucleated erythrocytes in Blood by Automated counon 05-09-2024 WBC corrected for nucl RBC Auto (Bld) [#/Vol] Leukocytes [#/volume] corrected for nucleated erythrocytes in Blood by Automated coun 4.0-11.0 [place] MCH Auto (RBC) [Entitic mass ]on 05-09-2024 MCH (RBC) [Entitic mass] MCH [Entitic ma ss] by Automated count 26.7-34.0 [place] MCHC Auto (RBC) [Mass/Vol]on 05-09-2024 MCHC (RBC) [Mass/Vol] MCHC [Mass/volume] by Automated count 29.9-35.2 [place] MCV Auto (RBC) [Entitic vol] on 05-09-2024 MCV (RBC) [Entitic vol] MCV [Entitic vol ume] by Automated count 81.0-99.0 [place] No Panel Informationon 05-09 25-Hydroxy Vitamin D Total 56.3 ng/mL [place] Comment on above: <20 ng/mL Vit D defi cient20-<30 ng/mL Vit D [id number] ng/mL Vit D sufficient>100 ng/mL Potential Toxicity Parathyroid Hormone (Intact) 9 pg/mL Abnormal 15-65 [place] Comment on above: Performed at: [facility] - [facility] [address] [id number] Director: Curry Rizzo PhD, Phone: [phone] Phosphorus Level 4.8 mg/dL High 2.6-4.7 [facility] Urine Bacteria SMALL #/HPF Abnormal NONE SEEN [place] Urine Occult Blood Negative NEGATIVE [facility] Urine Other Casts SEEN #/LPF Abnormal NONE SEEN [facility] Urine Other Crystals None Seen #/HPF None Seen [place] Urine Random Creatinine 62.86 mg/dL 20.00-300.0 0 [place] Urine RBC 0-2 #/HPF 0-2 [place] Urine Squamous Epithelial Cells MODERATE #/LPF Abnormal NONE/RARE [place] Urine WBC 2-5 #/HPF Abnormal NONE SEEN [place] Platelet mean volume Auto (B ld) [Entitic vol]on 05-09-2024 Platelet mean volume (Bld) [Entitic vol] Platelet mean volume [Entitic volume] in Blood by Automated count 9.5-13.5 [place] Platelets Auto (Bld) [#/Vol] on 05-09-2024 Platelets (Bld) [#/Vol] Platelets [#/vol ume] in Blood by Automated count 150-450 [place] RBC Auto (Bld) [#/Vol]on RBC (Bld) [#/Vol] Erythrocytes [#/volume] in Blood by Automated count Low 4.20-5.40 [place] Serum or plasma anion gap de terminationon 05-09-2024 Anion gap [Moles/Vol] Serum or plasma anion gap determination [place] Urine protein/creatinine rat ioon 05-09-2024 Protein/Creatinine (U) [Ratio] Urine protein/creatinine ratio [place] Office Visiton 03-29-2024 Follow-up visit [id number] Claudia Estrella 1950 F Date Provider Department Center 03/29/2024 KARTHIK MACKAY Family History Problem Relation Age of Onset Heart attack Mother Heart failure Mother Heart attack Father Family Status - Relation Status Age at Mother Father Level of Service:86715 ME OFFICE/OUTPATIENT ESTABLISHED LOW MDM 20 MIN Normal [facility] Albumin [Mass/volume] in Ser um or Plasmaon 01-01-2024 Albumin [Mass/Vol] 3.5 g/dL 2.9-4.4 [facility] Erythrocyte distribution wid th Auto (RBC) [Ratio]on 01-01-2024 Erythrocyte distribution width (RBC) [Ratio] 15.2 % High 11.0-15.0 [place] Estimated glomerular filtrat ion rate (GFR) non- Americanon 01-01-2024 GFR/1.73 sq M.predicted among non-blacks MDRD (S/P/Bld) [Vol rate/Area] 21 mL/min/{1.73_m2} Low >=60 [place] Hematocrit Auto (Bld) [Volum e fraction]on 01-01-2024 Hematocrit (Bld) [Volume fraction] 32.4 % Low 36.0-48.0 [place] Hemoglobin [Mass/volume] in Bloodon 01-01-2024 Hemoglobin (Bld) [Mass/Vol] 10.4 g/dL Low 12.0-16.0 [place] IgA [Mass/volume] in Serum o r Plasmaon 01-01-2024 IgA [Mass/Vol] 580 mg/dL Abnormal 64-422 [place] IgG [Mass/volume] in Serum o r Plasmaon 01-01-2024 IgG [Mass/Vol] 1132 mg/dL [id number] [place] IgM [Mass/volume] in Serum o r Plasmaon 01-01-2024 IgM [Mass/Vol] 155 mg/dL 26-217 [place] Immunofixation for Urineon 0 01-01-2024 Interpretation Immunofixation (U) [Interp] Comment . [place] Comment on above: No monoclonality det ected.Performed at: - [facility] [id number] Director: Curry Rizzo PhD, Phone: [phone] Immunoglobulin light chains. kappa.free [Mass/volume] in Serumon 01-01-2024 Immunoglobulin light chains.kappa.free (S) [Mass/Vol] 75.5 mg/L Abnormal 3.3-19.4 [place] Immunoglobulin light chains. kappa.free/Immunoglobulin light chains.lambda.free [Priscilla 01-01-2024 Immunoglobulin light chains.kappa.free/Immuno globulin light chains.lambda.free (S) [Mass ratio] 1.25 0.26-1.65 [place] Comment on above: Performed at: [address] [id number] Director: Curry Rizzo PhD, Phone: [phone] Immunoglobulin light chains. lambda.free [Mass/volume] in Serum or Plasmaon 01-01-2024 Immunoglobulin light chains.lambda.free [Mass/Vol] 60.4 mg/L Abnormal 5.7-26.3 [place] Iron binding capacity [Mass/ volume] in Serum or Plasmaon 01-01-2024 Iron binding capacity [Mass/Vol] 266.0 ug/dL 250.0-450.0 [place] Iron saturation [Mass Fracti on] in Serum or Plasmaon 01-01-2024 Iron saturation [Mass fraction] 16.2 % [place] [facility] - Chemistry and C hemistry - challengeon 01-01-2024 Albumin [Mass/Vol] 3.3 g/dL Low 3.4-5.0 [facility] Calcium [Mass/Vol] 9.2 mg/dL 8.5-10.1 [facility] Chloride [Moles/Vol] 103 mmol/L 98-107 [facility] CO2 [Moles/Vol] 27.3 mmol/L 21.0-32.0 [facility] Creatinine [Mass/Vol] 2.28 mg/dL High 0.55-1.[address] [facility] Ferritin [Mass/Vol] 123.0 ng/mL 8.0-252.0 [facility] GFR/1.73 sq M.predicted MDRD (S/P/Bld) [Vol rate/Area] 26 mL/min/{1.73_m2} Low >=60 [place] Glucose [Mass/Vol] 139 mg/dL High 74-106 [facility] Iron [Mass/Vol] 43.0 ug/dL Low 50.0-170.0 [place] Magnesium [Mass/Vol] 2.3 mg/dL 1.8-2.4 [facility] Potassium [Moles/Vol] 4.4 mmol/L 3.5-5.[address] [facility] Sodium [Moles/Vol] 138 mmol/L 136-145 [facility] Urate [Mass/Vol] 5.9 mg/dL 2.6-6.0 [facility] Urea nitrogen [Mass/Vol] 50.0 mg/dL High 7.0-18.0 [place] Urea nitrogen/Creatinine [Mass ratio] 21.9 mg/mg [place] [facility] - Urinalysison Protein (U) [Mass/Vol] 93.2 mg/dL High <=11.9 [facility] Leukocytes [#/volume] correc stacy for nucleated erythrocytes in Blood by Automated counon 01-01-2024 WBC corrected for nucl RBC Auto (Bld) [#/Vol] 8.9 10 3/uL 4.0-11.0 [place] MCH Auto (RBC) [Entitic mass ]on 01-01-2024 MCH (RBC) [Entitic mass] 27.4 pg 26.7-34.0 [place] MCHC Auto (RBC) [Mass/Vol]on 01-01-2024 MCHC (RBC) [Mass/Vol] 32.1 g/dL 29.9-35.[address] [facility] MCV Auto (RBC) [Entitic vol] on 01-01-2024 MCV (RBC) [Entitic vol] 85.3 fL 81.0-99.0 [facility] No Panel Informationon 12-31 25-Hydroxy Vitamin D Total 53.8 ng/mL [place] Comment on above: <20 ng/mL Vit D defi cient20-<30 ng/mL Vit D [id number] ng/mL Vit D sufficient>100 ng/mL Potential Toxicity Parathyroid Hormone (Intact) 95 pg/mL Abnormal 15-65 [place] Comment on above: Performed at: [facility] [place] [id number] Director: Curry Rizzo PhD, Phone: [phone] Phosphorus Level 4.0 mg/dL 2.6-4.7 [facility] Protein Electrophoresis M-Edward Not Observed g/dL Not Observed [place] Protein Electrophoresis Note Comment . [place] Comment on above: Protein electrophore sis scan will follow via computer,mail, or corporate recycling manager delivery. Urine Random Creatinine 88.24 mg/dL 20.00-300.0 0 [place] Platelet mean volume Auto (B ld) [Entitic vol]on 01-01-2024 Platelet mean volume (Bld) [Entitic vol] 10.9 fL 9.5-13.5 [place] Platelets Auto (Bld) [#/Vol] on 01-01-2024 Platelets (Bld) [#/Vol] 184 10 3/uL 150-450 [place] Protein [Mass/volume] in Ser um or Plasmaon 01-01-2024 Protein [Mass/Vol] 7.0 g/dL 6.0-8.5 [facility] RBC Auto (Bld) [#/Vol]on RBC (Bld) [#/Vol] 3.80 10 6/uL Low 4.20-5.40 [facility] Serum globulin measurement ( mass/volume)on 01-01-2024 Globulin (S) [Mass/Vol] 3.5 g/dL 2.2-3.9 [facility] Serum or plasma albumin/glob ulin mass ratioon 01-01-2024 Albumin/Globulin [Mass ratio] 1.1 {ratio} 0.7-1.7 [place] Serum or plasma alpha 1 glob ulin measurement by electrophoresis (mass/volume)on 01-01-2024 Alpha 1 globulin Elph [Mass/Vol] 0.3 g/dL 0.0-0.4 [place] Serum or plasma alpha 2 glob ulin measurement by electrophoresis (mass/volume)on 01-01-2024 Alpha 2 globulin Elph [Mass/Vol] 0.9 g/dL 0.4-1.0 [place] Serum or plasma anion gap de terminationon 01-01-2024 Anion gap [Moles/Vol] 12.1 mmol/L [facility] Serum or plasma beta globuli n measurement by electrophoresis (mass/volume)on 01-01-2024 Beta globulin Elph [Mass/Vol] 1.1 g/dL 0.7-1.3 [place] Serum or plasma gamma globul in measurement by electrophoresis (mass/volume)on 01-01-2024 Gamma globulin Elph [Mass/Vol] 1.3 g/dL 0.4-1.8 [place] Serum or plasma immunoelectr ophoresis interpretationon 01-01-2024 Interpretation IEP [Interp] Comment . [place] Comment on above: No monoclonality det ected. Urine protein/creatinine rat ioon 01-01-2024 Protein/Creatinine (U) [Ratio] 1.06 [place] BNPon 10-26-2022 Natriuretic peptide B (Bld) [Mass/Vol] 1458.0 pg/mL Critically high <=900.0 [facility] Comment on above: Performed By: #### L IPID, TSH, FT3 #### [facility] [address] [address] [address] Andrey Hargrove CBC AUTO DIFFon 10-26-2022 BASO # 0.1 103/ul Normal 0.0-0.1 [facility] Comment on above: Performed By: #### V ITAD, FETIBC, FERR #### [facility] [address] [address] [address] Andrey Hargrove Basophils/100 WBC (Bld) 0.7 % Normal 0.2-2.0 [facility] Comment on above: Performed By: #### V ITAD, FETIBC, FERR #### [facility] [address] [address] [address] Andrey Hargrove EO # 0.4 103/ul Normal 0.0-0.7 [facility] Comment on above: Performed By: #### V ITAD, FETIBC, FERR #### [facility] [address] [address] [address] Andrey Hargrove Eosinophils/100 WBC (Bld) 4.6 % Normal 0.9-7.0 [facility] Comment on above: Performed By: #### V ITAD, FETIBC, FERR #### [facility] [address] [place] [address] Dr. Andrey Hargrove Erythrocyte distribution width (RBC) [Ratio] 13.7 % Normal 11.0-15.0 [facility] Comment on above: Performed By: #### V ITAD, FETIBC, FERR #### [facility] [address] [place] [address] Dr. Andrey Hargrove Hematocrit (Bld) [Volume fraction] 35.5 % Critically low 36.0-48.0 [facility] Comment on above: Performed By: #### V ITAD, FETIBC, FERR #### [facility] [address] [place] [address] Dr. Andrey Hargrove Hemoglobin (Bld) [Mass/Vol] 12.0 g/dL Normal 12.0-16.0 [facility] Comment on above: Performed By: #### V ITAD, FETIBC, FERR #### [facility] [address] [place] [address] Dr. Andrey Hargrove IG # 0.02 10e3/ul Normal 0.00-0.03 [facility] Comment on above: Performed By: #### V ITAD, FETIBC, FERR #### [facility] [address] [place] [address] Dr. Andrey Hargrove IG % 0.2 % Normal 0.0-0.5 [facility] Comment on above: Performed By: #### V ITAD, FETIBC, FERR #### [facility] [address] [place] [address] Dr. Andrey Hargrove LYMPH # 1.5 103/ul Normal 1.2-3.8 [facility] Comment on above: Performed By: #### V ITAD, FETIBC, FERR #### [facility] [address] [place] [address] Dr. Andrey Hargrove Lymphocytes/100 WBC (Bld) 18.1 % Critically low 20.5-60.0 [facility] Comment on above: Performed By: #### V ITAD, FETIBC, FERR #### [facility] [address] [place] [address] Dr. Andrey Hargrove MANUAL DIFF REQ NO Normal [facility] Comment on above: Performed By: #### V ITAD, FETIBC, FERR #### [facility] [address] [place] [address] Dr. Andrey Hargrove MCH (RBC) [Entitic mass] 29.3 pg Normal 26.7-34.0 [facility] Comment on above: Performed By: #### V ITAD, FETIBC, FERR #### [facility] [address] [place] [address] Dr. Andrey Hargrove MCHC (RBC) [Mass/Vol] 33.8 g/dL Normal 29.9-35.2 [facility] Comment on above: Performed By: #### V ITAD, FETIBC, FERR #### [facility] [address] [place] [address] Dr. Andrey Hargrove MCV (RBC) [Entitic vol] 86.8 fL Normal 81.0-99.0 [facility] Comment on above: Performed By: #### V ITAD, FETIBC, FERR #### [facility] [address] [place] [address] Dr. Andrey Hargrove MONO # 0.7 103/ul Normal 0.3-0.8 [facility] Comment on above: Performed By: #### V ITAD, FETIBC, FERR #### [facility] [address] [place] [address] Dr. Andrey Hargrove Monocytes/100 WBC (Bld) 7.9 % Normal 1.7-12.0 [facility] Comment on above: Performed By: #### V ITAD, FETIBC, FERR #### [facility] [address] [place] [address] Dr. Andrey Hargrove NEUT # 5.7 103/ul Normal 1.4-6.5 [facility] Comment on above: Performed By: #### V ITAD, FETIBC, FERR #### [facility] [address] [place] [address] Dr. Andrey Hargrove Neutrophils/100 WBC (Bld) 68.5 % Normal 43.0-75.0 [facility] Comment on above: Performed By: #### V ITAD, FETIBC, FERR #### [facility] [address] [place] [address] Dr. Andrey Hargrove Platelet mean volume (Bld) [Entitic vol] 10.4 fL Normal 9.5-13.5 [facility] Comment on above: Performed By: #### V ITAD, FETIBC, FERR #### [facility] [address] [place] [address] Dr. Andrey Hargrove PLT 204 103/ul Normal 150-450 [facility] Comment on above: Performed By: #### V ITAD, FETIBC, FERR #### [facility] [address] [place] [address] Dr. Andrey Hargrove RBC 4.09 106/ul Critically low 4.20-5.40 [facility] Comment on above: Performed By: #### V ITAD, FETIBC, FERR #### [facility] [address] [place] [address] Dr. Andrey Hargrove WBC 8.3 103/ul Normal 4.0-11.0 [facility] Comment on above: Performed By: #### V ITAD, FETIBC, FERR #### [facility] [address] [place] [address] Dr. Andrey Hargrove PROF CHEM 8 (BAS METB)on Anion gap [Moles/Vol] 11.1 mmol/L Normal [facility] Comment on above: Performed By: #### L IPID, TSH, FT3 #### [facility] [address] [place] [address] Dr. Andrey Hargrove Calcium [Mass/Vol] 9.2 mg/dL Normal 8.5-10.1 [facility] Comment on above: Performed By: #### L IPID, TSH, FT3 #### [facility] [address] [place] [address] Dr. Andrey Hargrove Chloride [Moles/Vol] 102 mmol/L Normal 98-107 [facility] Comment on above: Performed By: #### L IPID, TSH, FT3 #### [facility] [address] [address] [address] Andrey Hargrove CO2 [Moles/Vol] 31.2 mmol/L Normal 21.0-32.0 [facility] Comment on above: Performed By: #### L IPID, TSH, FT3 #### [facility] [address] [address] [address] Andrey Hargrove Creatinine [Mass/Vol] 1.79 mg/dL Critically high 0.55-1.02 [facility] Comment on above: Performed By: #### L IPID, TSH, FT3 #### [facility] [address] [place] [address] Dr. Andrey Hargrove EGFR-AF PANAMANIAN 34 mL/min/1.73m2 Critically low >=60 [facility] Comment on above: Performed By: #### L IPID, TSH, FT3 #### [facility] [address] [address] [address] Andrey Hargrove EGFR-NON AF PANAMANIAN 28 mL/min/1.73m2 Critically low >=60 [facility] Comment on above: Performed By: #### L IPID, TSH, FT3 #### [facility] [address] [place] [address] Dr. Andrey Hargrove Glucose [Mass/Vol] 148 mg/dL Critically high 74-106 [facility] Comment on above: Performed By: #### L IPID, TSH, FT3 #### [facility] [address] [address] [address] Andrey Hargrove Potassium [Moles/Vol] 3.3 mmol/L Critically low 3.5-5.1 [facility] Comment on above: Performed By: #### L IPID, TSH, FT3 #### [facility] [address] [address] [address] Andrey Hargrove Sodium [Moles/Vol] 141 mmol/L Normal 136-145 [facility] Comment on above: Performed By: #### L IPID, TSH, FT3 #### [facility] [address] [address] [address] Andrey Hargrove Urea nitrogen [Mass/Vol] 41.0 mg/dL Critically high 7.0-18 .0 [facility] Comment on above: Performed By: #### L IPID, TSH, FT3 #### [facility] [address] [address] [address] Andrey Hargrove Urea nitrogen/Creatinine [Mass ratio] 22.9 mg/mg Normal [facility] Comment on above: Performed By: #### L IPID, TSH, FT3 #### [facility] [address] [place] [address] Dr. Andrey Hargrove PTH INTACTon 08-24-2022 PTH, Intact 44 pg/mL Normal 15-65 [facility] Comment on above: Performed By: #### V ITAD, FETIBC, FERR #### [facility] [address] [place] [address] Dr. Andrey Hargrove US THYROIDon 08-24-2022 US [...] by: RENETTA RENEE Date: 2022-08-24 16:16 Normal [facility] FERRITINon 08-23-2022 Ferritin [Mass/Vol] 114.0 ng/mL Normal 8.0-252.0 [facility] Comment on above: Performed By: #### V ITAD, FETIBC, FERR #### [facility] [address] [place] [address] Dr. Andrey Hargrove HEMOGRAM AND PLATELon 2022 Hematocrit (Bld) [Volume fraction] 34.9 % Critically low 36.0-48.0 [facility] Comment on above: Performed By: #### V ITAD, FETIBC, FERR #### [facility] [address] [place] [address] Dr. Andrey Hargrove Hemoglobin (Bld) [Mass/Vol] 11.8 g/dL Critically low 12.0-16.0 [facility] Comment on above: Performed By: #### V ITAD, FETIBC, FERR #### [facility] [address] [place] [address] Dr. Andrey Hargrove MCH (RBC) [Entitic mass] 28.6 pg Normal 26.7-34.0 [facility] Comment on above: Performed By: #### V ITAD, FETIBC, FERR #### [facility] [address] [place] [address] Dr. Andrey Hargrove MCHC (RBC) [Mass/Vol] 33.8 g/dL Normal 29.9-35.2 [facility] Comment on above: Performed By: #### V ITAD, FETIBC, FERR #### [facility] [address] [place] [address] Dr. Andrey Hargrove MCV (RBC) [Entitic vol] 84.7 fL Normal 81.0-99.0 [facility] Comment on above: Performed By: #### V ITAD, FETIBC, FERR #### [facility] [address] [place] [address] Dr. Andrey Hargrove PLT 215 103/ul Normal 150-450 [facility] Comment on above: Performed By: #### V ITAD, FETIBC, FERR #### [facility] [address] [place] [address] Dr. Andrey Hargrove RBC 4.12 106/ul Critically low 4.20-5.40 [facility] Comment on above: Performed By: #### V ITAD, FETIBC, FERR #### [facility] [address] [place] [address] Dr. Andrey Hargrove WBC 9.2 103/ul Normal 4.0-11.0 [facility] Comment on above: Performed By: #### V ITAD, FETIBC, FERR #### [facility] [address] [place] [address] Dr. Andrey Hargrove IRON AND TIBCon 08-23-2022 % SATURATION 15.4 % Normal [facility] Comment on above: Performed By: #### V ITAD, FETIBC, FERR #### [facility] [address] [place] [address] Dr. Andrey Hargrove Iron [Mass/Vol] 44.0 ug/dL Critically low 50.0-170.0 [facility] Comment on above: Performed By: #### V ITAD, FETIBC, FERR #### [facility] [address] [place] [address] Dr. Andrey Hargrove TIBC DIRECT 286.0 ug/dL Normal 250.0-450.0 [facility] Comment on above: Performed By: #### V ITAD, FETIBC, FERR #### [facility] [address] [place] [address] Dr. Andrey Hargrove MAGNESIUMon 08-23-2022 Magnesium [Mass/Vol] 2.1 mg/dL Normal 1.8-2.4 [facility] Comment on above: Performed By: #### L IPID, TSH, FT3 #### [facility] [address] [place] [address] Dr. Andrey Hargrove RENAL FUNCTION PANELon 08-23 Albumin [Mass/Vol] 3.3 g/dL Critically low 3.4-5.0 [facility] Comment on above: Performed By: #### L IPID, TSH, FT3 #### [facility] [address] [address] [address] Andrey Hargrove Calcium [Mass/Vol] 9.4 mg/dL Normal 8.5-10.1 [facility] Comment on above: Performed By: #### L IPID, TSH, FT3 #### [facility] [address] [address] [address] Andrey Hargrove Chloride [Moles/Vol] 103 mmol/L Normal 98-107 [facility] Comment on above: Performed By: #### L IPID, TSH, FT3 #### [facility] [address] [place] [address] Dr. Andrey Hargrove CO2 [Moles/Vol] 26.8 mmol/L Normal 21.0-32.0 [facility] Comment on above: Performed By: #### L IPID, TSH, FT3 #### [facility] [address] [place] [address] Dr. Andrey Hargrove Creatinine [Mass/Vol] 1.94 mg/dL Critically high 0.55-1.02 [facility] Comment on above: Performed By: #### L IPID, TSH, FT3 #### [facility] [address] [place] [address] Dr. Andrey Hargrove EGFR-AF PANAMANIAN 31 mL/min/1.73m2 Critically low >=60 [facility] Comment on above: Performed By: #### L IPID, TSH, FT3 #### [facility] [address] [place] [address] Dr. Andrey Hargrove EGFR-NON AF PANAMANIAN 25 mL/min/1.73m2 Critically low >=60 [facility] Comment on above: Performed By: #### L IPID, TSH, FT3 #### [facility] [address] [place] [address] Dr. Andrey Hargrove Glucose [Mass/Vol] 166 mg/dL Critically high 74-106 [facility] Comment on above: Performed By: #### L IPID, TSH, FT3 #### [facility] [address] [place] [address] Dr. Andrey Hargrove Phosphate [Mass/Vol] 4.6 mg/dL Normal 2.6-4.7 [facility] Comment on above: Performed By: #### L IPID, TSH, FT3 #### [facility] [address] [place] [address] Dr. Andrey Hargrove Potassium [Moles/Vol] 4.3 mmol/L Normal 3.5-5.1 [facility] Comment on above: Performed By: #### L IPID, TSH, FT3 #### [facility] [address] [place] [address] Dr. Andrey Hargrove Sodium [Moles/Vol] 137 mmol/L Normal 136-145 [facility] Comment on above: Performed By: #### L IPID, TSH, FT3 #### [facility] [address] [place] [address] Dr. Andrey Hargrove Urea nitrogen [Mass/Vol] 39.0 mg/dL Critically high 7.0-18 .0 [facility] Comment on above: Performed By: #### L IPID, TSH, FT3 #### [facility] [address] [place] [address] Dr. Andrey Hargrove UA RANDOM W/MICROSCOPICon BACTERIA NONE SEEN Normal NONE SEEN [facility] Comment on above: Performed By: #### V ITAD, FETIBC, FERR #### [facility] [address] [place] [address] Dr. Andrey Hargrove Bilirubin Ql (U) Negative Normal NEGATIVE [facility] Comment on above: Performed By: #### V ITAD, FETIBC, FERR #### [facility] [address] [place] [address] Dr. Andrey Hargrove CAST NONE SEEN Normal NONE SEEN [facility] Comment on above: Performed By: #### V ITAD, FETIBC, FERR #### [facility] [address] [place] [address] Dr. Andrey Hargrove Clarity (U) CLEAR Normal CLEAR [facility] Comment on above: Performed By: #### V ITAD, FETIBC, FERR #### [facility] [address] [address] [address] Andrey Hargrove Color (U) LT. YELLOW Normal YELLOW [facility] Comment on above: Performed By: #### V ITAD, FETIBC, FERR #### [facility] [address] [address] [address] Andrey Hargrove Crystals LM Nom (Urine sed) NONE SEEN Normal NONE SEEN [facility] Comment on above: Performed By: #### V ITAD, FETIBC, FERR #### [facility] [address] [address] [address] Andrey Hargrove Epithelial cells LM Ql (Urine sed) RARE Normal NONE SEEN /RARE [facility] Comment on above: Performed By: #### V ITAD, FETIBC, FERR #### [facility] [address] [address] [address] Andrey Hargrove Glucose Ql (U) Negative Normal NEGATIVE [facility] Comment on above: Performed By: #### V ITAD, FETIBC, FERR #### [facility] [address] [address] [address] Andrey Hargrove Hemoglobin Ql (U) Negative Normal NEGATIVE [facility] Comment on above: Performed By: #### V ITAD, FETIBC, FERR #### [facility] [address] [address] [address] Andrey Hargrove Ketones Ql (U) Negative Normal NEGATIVE [facility] Comment on above: Performed By: #### V ITAD, FETIBC, FERR #### [facility] [address] [address] [address] Andrey Hargrove LEUKOCYTES Negative Normal NEGATIVE [facility] Comment on above: Performed By: #### V ITAD, FETIBC, FERR #### [facility] [address] [address] [address] Andrey Hargrove MUCOUS NONE SEEN Normal NONE SEEN [facility] Comment on above: Performed By: #### V ITAD, FETIBC, FERR #### [facility] [address] [address] [address] Andrey Hargrove Nitrite Ql (U) Negative Normal NEGATIVE [facility] Comment on above: Performed By: #### V ITAD, FETIBC, FERR #### [facility] [address] [place] [address] Dr. Andrey Hargrove pH (U) 6.5 [pH] Normal 5-9 [facility] Comment on above: Performed By: #### V ITAD, FETIBC, FERR #### [facility] [address] [place] [address] Dr. Andrey Hargrove RBC NONE SEEN Abnormal 0-2 [facility] Comment on above: Performed By: #### V ITAD, FETIBC, FERR #### [facility] [address] [place] [address] Dr. Andrey Hargrove SPEC GRAVITY 1.010 Normal 1.005-<=1.02 5 [facility] Comment on above: Performed By: #### V ITAD, FETIBC, FERR #### [facility] [address] [place] [address] Dr. Andrey Hargrove UA PROTEIN 30 mg/dl Abnormal NEGATIVE/ TRACE [facility] Comment on above: Performed By: #### V ITAD, FETIBC, FERR #### [facility] [address] [place] [address] Dr. Andrey Hargrove Urobilinogen Qn (U) 0.2 {Kelly'U}/dL Normal 0.2 - 1. 0 [facility] Comment on above: Performed By: #### V ITAD, FETIBC, FERR #### [facility] [address] [place] [address] Dr. Andrey Hargrove WBC NONE SEEN Normal NONE SEEN [facility] Comment on above: Performed By: #### V ITAD, FETIBC, FERR #### [facility] [address] [place] [address] Dr. Andrey Hargrove URIC ACID SERUMon 08-23-2022 Urate [Mass/Vol] 5.8 mg/dL Normal 2.6-6.0 [facility] Comment on above: Performed By: #### L IPID, TSH, FT3 #### [facility] [address] [address] [address] Andrey Hargrove VITAMIN D 25 OHon 08-23-2022 VIT D 25-OH 69.0 ng/mL Normal [facility] Comment on above: Performed By: #### V ITAD, FETIBC, FERR #### [facility] [address] [address] [address] Andrey Hargrove VIT D RANGES SEE BELOW Normal [facility] Comment on above: Result Comment: <20 ng/mL Vit D deficient 20 - <30 ng/mL Vit D insufficient 30 - 100 ng/mL Vit D sufficient >100 ng/mL Potential Toxicity Performed By: #### V ITAD, FETIBC, FERR #### [facility] [address] [address] [address] Andrey Hargrove ECHOCARDIO M/2D COMPLETEon 1 08-14-2021 ECHOCARDIO M/2D COMPLETE Patient: CLAUDIA ESTRELLA Exam Date: 06/13/2022 : 1950 Gender:F Ordering : DR KARTHIK FISH M.D. Admission #: [id number] Family : Order #: [id number] CLICK HERE TO VIEW EXAM ECHOCARDIOGRAM REPORT [...] Fish M.D. on 06/14/2022 at 17:50 Normal [facility] BNPon 06-10-2022 Natriuretic peptide B (Bld) [Mass/Vol] 4197.0 pg/mL Critically high <=900.0 [facility] Comment on above: Performed By: #### L IPID, TSH, FT3 #### [facility] [address] [place] [address] Dr. Andrey Hargrove PROF CHEM 8 (BAS METB)on Anion gap [Moles/Vol] 10.4 mmol/L Normal [facility] Comment on above: Performed By: #### V ITAD, FETIBC, FERR #### [facility] [address] [address] [address] Andrey Hargrove Calcium [Mass/Vol] 9.4 mg/dL Normal 8.5-10.1 [facility] Comment on above: Performed By: #### V ITAD, FETIBC, FERR #### [facility] [address] [place] [address] Dr. Andrey Hargrove Chloride [Moles/Vol] 99 mmol/L Normal 98-107 [facility] Comment on above: Performed By: #### V ITAD, FETIBC, FERR #### [facility] [address] [place] [address] Dr. Andrey Hargrove CO2 [Moles/Vol] 33.8 mmol/L Critically high 21.0-32.0 [facility] Comment on above: Performed By: #### V ITAD, FETIBC, FERR #### [facility] [address] [place] [address] Dr. Andrey Hargrove Creatinine [Mass/Vol] 2.09 mg/dL Critically high 0.55-1.02 [facility] Comment on above: Performed By: #### V ITAD, FETIBC, FERR #### [facility] [address] [address] [address] Andrey Hargrove EGFR-AF PANAMANIAN 28 mL/min/1.73m2 Critically low >=60 [facility] Comment on above: Performed By: #### V ITAD, FETIBC, FERR #### [facility] [address] [address] [address] Andrey Hargrove EGFR-NON AF PANAMANIAN 23 mL/min/1.73m2 Critically low >=60 [facility] Comment on above: Performed By: #### V ITAD, FETIBC, FERR #### [facility] [address] [address] [address] Andrey Hargrove Glucose [Mass/Vol] 75 mg/dL Normal 74-106 [facility] Comment on above: Performed By: #### V ITAD, FETIBC, FERR #### [facility] [address] [address] [address] Andrey Hargrove Potassium [Moles/Vol] 3.2 mmol/L Critically low 3.5-5.1 [facility] Comment on above: Performed By: #### V ITAD, FETIBC, FERR #### [facility] [address] [address] [address] Andrey Hargrove Sodium [Moles/Vol] 140 mmol/L Normal 136-145 [facility] Comment on above: Performed By: #### V ITAD, FETIBC, FERR #### [facility] [address] [address] [address] Andrey Hargrove Urea nitrogen [Mass/Vol] 61.0 mg/dL Critically high 7.0-18 .0 [facility] Comment on above: Performed By: #### V ITAD, FETIBC, FERR #### [facility] [address] [address] [address] Andrey Hargrove Urea nitrogen/Creatinine [Mass ratio] 29.2 mg/mg Normal [facility] Comment on above: Performed By: #### V ITAD, FETIBC, FERR #### [facility] [address] [place] [address] Dr. Andrey Hargrove BNPon 06-02-2022 Natriuretic peptide B (Bld) [Mass/Vol] 9365.0 pg/mL Critically high <=900.0 [facility] Comment on above: Performed By: #### V ITAD, FETIBC, FERR #### [facility] [address] [address] [address] Andrey Hargrove PROF CHEM 8 (BAS METB)on Anion gap [Moles/Vol] 10.7 mmol/L Normal [facility] Comment on above: Performed By: #### V ITAD, FETIBC, FERR #### [facility] [address] [place] [address] Dr. Andrey Hargrove Calcium [Mass/Vol] 9.1 mg/dL Normal 8.5-10.1 [facility] Comment on above: Performed By: #### V ITAD, FETIBC, FERR #### [facility] [address] [place] [address] Dr. Andrey Hargrove Chloride [Moles/Vol] 98 mmol/L Normal 98-107 [facility] Comment on above: Performed By: #### V ITAD, FETIBC, FERR #### [facility] [address] [place] [address] Dr. Andrey Hargrove CO2 [Moles/Vol] 29.4 mmol/L Normal 21.0-32.0 [facility] Comment on above: Performed By: #### V ITAD, FETIBC, FERR #### [facility] [address] [place] [address] Dr. Andrey Hargrove Creatinine [Mass/Vol] 2.44 mg/dL Critically high 0.55-1.02 [facility] Comment on above: Performed By: #### V ITAD, FETIBC, FERR #### [facility] [address] [place] [address] Dr. Andrey Hargrove EGFR-AF PANAMANIAN 24 mL/min/1.73m2 Critically low >=60 [facility] Comment on above: Performed By: #### V ITAD, FETIBC, FERR #### [facility] [address] [place] [address] Dr. Andrey Hargrove EGFR-NON AF PANAMANIAN 20 mL/min/1.73m2 Critically low >=60 [facility] Comment on above: Performed By: #### V ITAD, FETIBC, FERR #### [facility] [address] [place] [address] Dr. Andrey Hargrove Glucose [Mass/Vol] 135 mg/dL Critically high 74-106 [facility] Comment on above: Performed By: #### V ITAD, FETIBC, FERR #### [facility] [address] [place] [address] Dr. Andrey Hargrove Potassium [Moles/Vol] 4.1 mmol/L Normal 3.5-5.1 [facility] Comment on above: Performed By: #### V ITAD, FETIBC, FERR #### [facility] [address] [place] [address] Dr. Andrey Hargrove Sodium [Moles/Vol] 134 mmol/L Critically low 136-[address] [facility] Comment on above: Performed By: #### V ITAD, FETIBC, FERR #### [facility] [address] [place] [address] Dr. Andrey Hargrvoe Urea nitrogen [Mass/Vol] 81.0 mg/dL Critically high 7.0-18 .0 [facility] Comment on above: Performed By: #### V ITAD, FETIBC, FERR #### [facility] [address] [place] [address] Dr. Andrey Hargrove Urea nitrogen/Creatinine [Mass ratio] 33.2 mg/mg Normal [facility] Comment on above: Performed By: #### V ITAD, FETIBC, FERR #### [facility] [address] [place] [address] Dr. Andrey Hargrove XR ELBOW RT MIN [...] BETSY LAZARO Date: 2022-06-01 17:24 Normal [facility] RENAL FUNCTION PANELon 05-27 Albumin [Mass/Vol] 3.4 g/dL Normal 3.4-5.0 [facility] Comment on above: Performed By: #### L IPID, TSH, FT3 #### [facility] [address] [address] [address] Andrey Hargrove Calcium [Mass/Vol] 9.1 mg/dL Normal 8.5-10.1 [facility] Comment on above: Performed By: #### L IPID, TSH, FT3 #### [facility] [address] [address] [address] Andrey Hargrove Chloride [Moles/Vol] 99 mmol/L Normal 98-107 [facility] Comment on above: Performed By: #### L IPID, TSH, FT3 #### [facility] [address] [address] [address] Andrey Hargrove CO2 [Moles/Vol] 30.9 mmol/L Normal 21.0-32.0 [facility] Comment on above: Performed By: #### L IPID, TSH, FT3 #### [facility] [address] [address] [address] Andrey Hargrove Creatinine [Mass/Vol] 2.24 mg/dL Critically high 0.55-1.02 [facility] Comment on above: Performed By: #### L IPID, TSH, FT3 #### [facility] [address] [place] [address] Dr. Andrey Hargrove EGFR-AF PANAMANIAN 26 mL/min/1.73m2 Critically low >=60 [facility] Comment on above: Performed By: #### L IPID, TSH, FT3 #### [facility] [address] [place] [address] Dr. Andrey Hargrove EGFR-NON AF PANAMANIAN 22 mL/min/1.73m2 Critically low >=60 [facility] Comment on above: Performed By: #### L IPID, TSH, FT3 #### [facility] [address] [place] [address] Dr. Andrey Hargrove Glucose [Mass/Vol] 94 mg/dL Normal 74-106 [facility] Comment on above: Performed By: #### L IPID, TSH, FT3 #### [facility] [address] [place] [address] Dr. Andrey Hargrove Phosphate [Mass/Vol] 4.7 mg/dL Normal 2.6-4.7 [facility] Comment on above: Performed By: #### L IPID, TSH, FT3 #### [facility] [address] [place] [address] Dr. Andrey Hargrove Potassium [Moles/Vol] 3.5 mmol/L Normal 3.5-5.1 [facility] Comment on above: Performed By: #### L IPID, TSH, FT3 #### [facility] [address] [place] [address] Dr. Andrey Hargrove Sodium [Moles/Vol] 136 mmol/L Normal 136-145 [facility] Comment on above: Performed By: #### L IPID, TSH, FT3 #### [facility] [address] [place] [address] Dr. Andrey Hargrove Urea nitrogen [Mass/Vol] 72.0 mg/dL Critically high 7.0-18 .0 [facility] Comment on above: Performed By: #### L IPID, TSH, FT3 #### [facility] [address] [place] [address] Dr. Andrey Hargrove PTH INTACTon 05-24-2022 PTH, Intact 24 pg/mL Normal 15-65 [facility] Comment on above: Performed By: #### L IPID, TSH, FT3 #### [facility] [address] [place] [address] Dr. Andrey Hargrove FERRITINon 05-23-2022 Ferritin [Mass/Vol] 190.0 ng/mL Normal 8.0-252.0 [facility] Comment on above: Performed By: #### L IPID, TSH, FT3 #### [facility] [address] [place] [address] Dr. Andrey Hargrove FREE T3on 05-23-2022 FREE T3 1.96 pg/mlL Critically low 2.18-3.98 [facility] Comment on above: Performed By: #### L IPID, TSH, FT3 #### [facility] [address] [place] [address] Dr. Andrey Hargrove FREE T4on 05-23-2022 Free T4 [Mass/Vol] 1.33 ng/dL Normal 0.76-1.46 [facility] Comment on above: Performed By: #### L IPID, TSH, FT3 #### [facility] [address] [place] [address] Dr. Andrey Hargrove HEMOGRAM AND PLATELon 2021 Hematocrit (Bld) [Volume fraction] 30.6 % Critically low 36.0-48.0 [facility] Comment on above: Performed By: #### V ITAD, FETIBC, FERR #### [facility] [address] [place] [address] Dr. Andrey Hargrove Hemoglobin (Bld) [Mass/Vol] 10.4 g/dL Critically low 12.0-16.0 [facility] Comment on above: Performed By: #### V ITAD, FETIBC, FERR #### [facility] [address] [place], [place] [id number] Dr. Andrey Hargrove MCH (RBC) [Entitic mass] 28.6 pg Normal 26.7-34.0 [facility] Comment on above: Performed By: #### V ITAD, FETIBC, FERR #### [facility] [address] [place] [address] Dr. Andrey Hargrove MCHC (RBC) [Mass/Vol] 34.0 g/dL Normal 29.9-35.2 [facility] Comment on above: Performed By: #### V ITAD, FETIBC, FERR #### [facility] [address] [place] [address] Dr. Andrey Hargrove MCV (RBC) [Entitic vol] 84.1 fL Normal 81.0-99.0 [facility] Comment on above: Performed By: #### V ITAD, FETIBC, FERR #### [facility] [address] [place] [address] Dr. Andrey Hargrove PLT 179 103/ul Normal 150-450 [facility] Comment on above: Performed By: #### V ITAD, FETIBC, FERR #### [facility] [address] [place] [address] Dr. Andrey Hargrove RBC 3.64 106/ul Critically low 4.20-5.40 [facility] Comment on above: Performed By: #### V ITAD, FETIBC, FERR #### [facility] [address] [place] [address] Dr. Andrey Hargrove WBC 9.5 103/ul Normal 4.0-11.0 [facility] Comment on above: Performed By: #### V ITAD, FETIBC, FERR #### [facility] [address] [place] [address] Dr. Andrey Hargrove IRON AND TIBCon 05-23-2022 % SATURATION 15.9 % Normal [facility] Comment on above: Performed By: #### L IPID, TSH, FT3 #### [facility] [address] [place] [address] Dr. Andrey Hargrove Iron [Mass/Vol] 44.0 ug/dL Critically low 50.0-170.0 [facility] Comment on above: Performed By: #### L IPID, TSH, FT3 #### [facility] [address] [address] [address] Andrey Hargrove TIBC DIRECT 276.0 ug/dL Normal 250.0-450.0 [facility] Comment on above: Performed By: #### L IPID, TSH, FT3 #### [facility] [address] [address] [address] Andrey Hargrove LIPID PROFILEon 05-23-2022 CHOL-HDL RATIO NORM SEE BELOW Normal [facility] Comment on above: Result Comment: 3.3 - 4.4 LOW RISK 4.4 - 7.1 AVERAGE RISK 7.1 - 11.0 MODERATE RISK >11.0 HIGH RISK Performed By: #### L IPID, TSH, FT3 #### [facility] [address] [address] [address] Andrey Hargrove Cholesterol [Mass/Vol] 129 mg/dL Normal <=200 [facility] Comment on above: Performed By: #### L IPID, TSH, FT3 #### [facility] [address] [address] [address] Andrey Hargrove Cholesterol in HDL [Mass/Vol] 55 mg/dL Normal 40-60 [facility] Comment on above: Performed By: #### L IPID, TSH, FT3 #### [facility] [address] [address] [address] Andrey Hargrove Cholesterol in LDL [Mass/Vol] 59.6 mg/dL Normal [facility] Comment on above: Performed By: #### L IPID, TSH, FT3 #### [facility] [address] [address] [address] Andrey Hargrove Cholesterol.total/Choles terol in HDL [Mass ratio] 2.3 {ratio} Normal [facility] Comment on above: Performed By: #### L IPID, TSH, FT3 #### [facility] [address] [address] [address] Andrey Hargrove HDL NORMAL > or = 60 mg/dl - LOW CARDIOVASCULAR RISK <40 mg/dl - HIGH CARDIOVASCULAR RISK Normal [facility] Comment on above: Performed By: #### L IPID, TSH, FT3 #### [facility] [address] [place] [address] Dr. Andrey Hargrove LDL CALC NORMAL SEE BELOW Normal [facility] Comment on above: Result Comment: <100 mg/dl OPTIMAL 100 - 129 mg/dl NEAR OR ABOVE OPTIMAL 130 - 159 mg/dl BORDERLINE HIGH 160 - 189 mg/dl HIGH >190 mg/dl VERY HIGH Performed By: #### L IPID, TSH, FT3 #### [facility] [address] [place] [address] Dr. Andrey Hargrove Triglyceride [Mass/Vol] 72 mg/dL Normal <=150 [facility] Comment on above: Performed By: #### L IPID, TSH, FT3 #### [facility] [address] [place] [address] Dr. Andrey Hargrove VLDL CALC 14.4 mg/dL Normal [facility] Comment on above: Performed By: #### L IPID, TSH, FT3 #### [facility] [address] [place] [address] Dr. Andrey Hargrove MAGNESIUMon 05-23-2022 Magnesium [Mass/Vol] 2.2 mg/dL Normal 1.8-2.4 [facility] Comment on above: Performed By: #### L IPID, TSH, FT3 #### [facility] [address] [place] [address] Dr. Andrey Hargrove RENAL FUNCTION PANELon 05-23 Albumin [Mass/Vol] 3.5 g/dL Normal 3.4-5.0 [facility] Comment on above: Performed By: #### L IPID, TSH, FT3 #### [facility] [address] [place] [address] Dr. Andrey Hargrove Calcium [Mass/Vol] 10.0 mg/dL Normal 8.5-10.1 [facility] Comment on above: Performed By: #### L IPID, TSH, FT3 #### [facility] [address] [place] [address] Dr. Andrey Hargrove Chloride [Moles/Vol] 98 mmol/L Normal 98-107 [facility] Comment on above: Performed By: #### L IPID, TSH, FT3 #### [facility] [address] [address] [address] Andrey Hargrove CO2 [Moles/Vol] 34.3 mmol/L Critically high 21.0-32.0 [facility] Comment on above: Performed By: #### L IPID, TSH, FT3 #### [facility] [address] [address] [address] Andrey Hargrove Creatinine [Mass/Vol] 2.24 mg/dL Critically high 0.55-1.02 [facility] Comment on above: Performed By: #### L IPID, TSH, FT3 #### [facility] [address] [place] [address] Dr. Andrey Hargrove EGFR-AF PANAMANIAN 26 mL/min/1.73m2 Critically low >=60 [facility] Comment on above: Performed By: #### L IPID, TSH, FT3 #### [facility] [address] [address] [address] Andrey Hargrove EGFR-NON AF PANAMANIAN 22 mL/min/1.73m2 Critically low >=60 [facility] Comment on above: Performed By: #### L IPID, TSH, FT3 #### [facility] [address] [address] [address] Andrey Hargrove Glucose [Mass/Vol] 123 mg/dL Critically high 74-106 [facility] Comment on above: Performed By: #### L IPID, TSH, FT3 #### [facility] [address] [address] [address] Andrey Hargrove Phosphate [Mass/Vol] 5.2 mg/dL Critically high 2.6-4.7 [facility] Comment on above: Performed By: #### L IPID, TSH, FT3 #### [facility] [address] [address] [address] Andrey Hargrove Potassium [Moles/Vol] 3.0 mmol/L Critically low 3.5-5.1 [facility] Comment on above: Performed By: #### L IPID, TSH, FT3 #### [facility] [address] [place] [address] Dr. Andrey Hargrove Sodium [Moles/Vol] 137 mmol/L Normal 136-145 [facility] Comment on above: Performed By: #### L IPID, TSH, FT3 #### [facility] [address] [place] [address] Dr. Andrey Hargrove Urea nitrogen [Mass/Vol] 80.0 mg/dL Critically high 7.0-18 .0 [facility] Comment on above: Performed By: #### L IPID, TSH, FT3 #### [facility] [address] [place] [address] Dr. Andrey Hargrove TSHon 05-23-2022 TSH 4.652 uIU/mL Critically high 0.358-3.740 [facility] Comment on above: Performed By: #### L IPID, TSH, FT3 #### [facility] [address] [place] [address] Dr. Andrey Hargrove UA RANDOM W/MICROSCOPICon BACTERIA NONE SEEN Normal NONE SEEN [facility] Comment on above: Performed By: #### V ITAD, FETIBC, FERR #### [facility] [address] [place] [address] Dr. Andrey Hargrove Bilirubin Ql (U) Negative Normal NEGATIVE [facility] Comment on above: Performed By: #### V ITAD, FETIBC, FERR #### [facility] [address] [place] [address] Dr. Andrey Hargrove CAST NONE SEEN Normal NONE SEEN [facility] Comment on above: Performed By: #### V ITAD, FETIBC, FERR #### [facility] [address] [place] [address] Dr. Andrey Hargrove Clarity (U) CLEAR Normal CLEAR [facility] Comment on above: Performed By: #### V ITAD, FETIBC, FERR #### [facility] [address] [place] [address] Dr. Andrey Hargrove Color (U) LT. YELLOW Normal YELLOW [facility] Comment on above: Performed By: #### V ITAD, FETIBC, FERR #### [facility] [address] [place] [address] Dr. Andrey Hargrove Crystals LM Nom (Urine sed) NONE SEEN Normal NONE SEEN [facility] Comment on above: Performed By: #### V ITAD, FETIBC, FERR #### [facility] [address] [address] [address] Andrey Hargrove Epithelial cells LM Ql (Urine sed) FEW Abnormal NONE SEEN /RARE [facility] Comment on above: Performed By: #### V ITAD, FETIBC, FERR #### [facility] [address] [place] [address] Dr. Andrey Hargrove Glucose Ql (U) Negative Normal NEGATIVE [facility] Comment on above: Performed By: #### V ITAD, FETIBC, FERR #### [facility] [address] [place] [address] Dr. Andrey Hargrove Hemoglobin Ql (U) TRACE-INTACT Abnormal NEGATIVE [facility] Comment on above: Performed By: #### V ITAD, FETIBC, FERR #### [facility] [address] [place] [address] Dr. Andrey Hargrove Ketones Ql (U) Negative Normal NEGATIVE [facility] Comment on above: Performed By: #### V ITAD, FETIBC, FERR #### [facility] [address] [address] [address] Andrey Hargrove LEUKOCYTES SMALL Abnormal NEGATIVE [facility] Comment on above: Performed By: #### V ITAD, FETIBC, FERR #### [facility] [address] [address] [address] Andrey Hargrove MUCOUS NONE SEEN Normal NONE SEEN [facility] Comment on above: Performed By: #### V ITAD, FETIBC, FERR #### [facility] [address] [place] [address] Dr. Andrey Hargrove Nitrite Ql (U) Negative Normal NEGATIVE [facility] Comment on above: Performed By: #### V ITAD, FETIBC, FERR #### [facility] [address] [place] [address] Dr. Andrey Hargrove pH (U) 5.5 [pH] Normal 5-9 [facility] Comment on above: Performed By: #### V ITAD, FETIBC, FERR #### [facility] [address] [place] [address] Dr. Andrey Hargrove RBC 0-2 Normal 0-2 [facility] Comment on above: Performed By: #### V ITAD, FETIBC, FERR #### [facility] [address] [place] [address] Dr. Andrey Hargrove SPEC GRAVITY 1.010 Normal 1.005-<=1.02 5 [facility] Comment on above: Performed By: #### V ITAD, FETIBC, FERR #### [facility] [address] [place] [address] Dr. Andrey Hargrove UA PROTEIN TRACE Normal NEGATIVE/ TRACE [facility] Comment on above: Performed By: #### V ITAD, FETIBC, FERR #### [facility] [address] [place] [address] Dr. Andrey Hargrove Urobilinogen Qn (U) 0.2 {Kelly'U}/dL Normal 0.2 - 1. 0 [facility] Comment on above: Performed By: #### V ITAD, FETIBC, FERR #### [facility] [address] [place] [address] Dr. Andrey Hargrove WBC 0-2 Abnormal NONE SEEN [facility] Comment on above: Performed By: #### V ITAD, FETIBC, FERR #### [facility] [address] [place] [address] Dr. Andrey Hargrove URIC ACID SERUMon 05-23-2022 Urate [Mass/Vol] 7.4 mg/dL Critically high 2.6-6.0 [facility] Comment on above: Performed By: #### L IPID, TSH, FT3 #### [facility] [address] [place] [address] Dr. Andrey Hargrove URINE T PROTEIN CREAT RATIOo n 05-23-2022 Protein (U) [Mass/Vol] 39.9 mg/dL Critically high <=12.0 [facility] Comment on above: Performed By: #### U RTPCR #### [facility] [address] [place] [address] Dr. Andrey Hargrove UR PROT CREAT RAT 0.64 Normal [facility] Comment on above: Performed By: #### U RTPCR #### [facility] [address] [address] [address] nAdrey Hargrove URINE CREAT 62.30 mg/dL Normal 20.00-300.00 [facility] Comment on above: Performed By: #### U RTPCR #### [facility] [address] [place] [address] Dr. Andrey Hargrove VITAMIN D 25 OHon 05-23-2022 VIT D 25-OH 90.7 ng/mL Normal [facility] Comment on above: Performed By: #### L IPID, TSH, FT3 #### [facility] [address] [place] [address] Dr. Andrey Hargrove VIT D RANGES SEE BELOW Normal [facility] Comment on above: Result Comment: <20 ng/mL Vit D deficient 20 - <30 ng/mL Vit D insufficient 30 - 100 ng/mL Vit D sufficient >100 ng/mL Potential Toxicity Performed By: #### L IPID, TSH, FT3 #### [facility] [address] [place] [address] Dr. Andrey Hargrove MAGNESIUMon 05-14-2022 Magnesium [Mass/Vol] 2.1 mg/dL Normal 1.8-2.4 [facility] Comment on above: Performed By: #### L IPID, TSH, FT3 #### [facility] [address] [place] [address] Dr. Andrey Hargrove PROF CHEM 8 (BAS METB)on Anion gap [Moles/Vol] 12.0 mmol/L Normal [facility] Comment on above: Performed By: #### L IPID, TSH, FT3 #### [facility] [address] [address] [address] Andrey Hargrove Calcium [Mass/Vol] 9.0 mg/dL Normal 8.5-10.1 [facility] Comment on above: Performed By: #### L IPID, TSH, FT3 #### [facility] [address] [address] [address] Andrey Hargrove Chloride [Moles/Vol] 97 mmol/L Critically low 98-107 [facility] Comment on above: Performed By: #### L IPID, TSH, FT3 #### [facility] [address] [address] [address] Andrey Hargrove CO2 [Moles/Vol] 30.4 mmol/L Normal 21.0-32.0 [facility] Comment on above: Performed By: #### L IPID, TSH, FT3 #### [facility] [address] [place] [address] Dr. Andrey Hargrove Creatinine [Mass/Vol] 2.28 mg/dL Critically high 0.55-1.02 [facility] Comment on above: Performed By: #### L IPID, TSH, FT3 #### [facility] [address] [address] [address] Andrey Hargrove EGFR-AF PANAMANIAN 26 mL/min/1.73m2 Critically low >=60 [facility] Comment on above: Performed By: #### L IPID, TSH, FT3 #### [facility] [address] [address] [address] Andrey Hargrove EGFR-NON AF PANAMANIAN 21 mL/min/1.73m2 Critically low >=60 [facility] Comment on above: Performed By: #### L IPID, TSH, FT3 #### [facility] [address] [address] [address] Andrey Hargrove Glucose [Mass/Vol] 190 mg/dL Critically high 74-106 [facility] Comment on above: Performed By: #### L IPID, TSH, FT3 #### [facility] [address] [address] [address] Andrey Hargrove Potassium [Moles/Vol] 3.4 mmol/L Critically low 3.5-5.1 [facility] Comment on above: Performed By: #### L IPID, TSH, FT3 #### [facility] [address] [place] [address] Dr. Andrey Hargrove Sodium [Moles/Vol] 136 mmol/L Normal 136-145 [facility] Comment on above: Performed By: #### L IPID, TSH, FT3 #### [facility] [address] [address] [address] Andrey Hargrove Urea nitrogen [Mass/Vol] 73.0 mg/dL Critically high 7.0-18 .0 [facility] Comment on above: Performed By: #### L IPID, TSH, FT3 #### [facility] [address] [place] [address] Dr. Andrey Hargrove Urea nitrogen/Creatinine [Mass ratio] 32.0 mg/mg Normal [facility] Comment on above: Performed By: #### L IPID, TSH, FT3 #### [facility] [address] [place] [address] Dr. Andrey Hargrove XR CHEST 2 Von [...] RENETTA RENEE Date: 2022-05-12 09:12 Normal [facility] BNPon 05-11-2022 Natriuretic peptide B (Bld) [Mass/Vol] 7074.0 pg/mL Critically high <=900.0 [facility] Comment on above: Performed By: #### V ITAD, FETIBC, FERR #### [facility] [address] [place] [address] Dr. Andrey Hargrove CBC AUTO DIFFon 05-11-2022 BASO # 0.1 103/ul Normal 0.0-0.1 [facility] Comment on above: Performed By: #### V ITAD, FETIBC, FERR #### [facility] [address] [place] [address] Dr. Andrey Hargrove Basophils/100 WBC (Bld) 0.7 % Normal 0.2-2.0 [facility] Comment on above: Performed By: #### V ITAD, FETIBC, FERR #### [facility] [address] [place] [address] Dr. Andrey Hargrove EO # 0.3 103/ul Normal 0.0-0.7 [facility] Comment on above: Performed By: #### V ITAD, FETIBC, FERR #### [facility] [address] [place] [address] Dr. Andrey Hargrove Eosinophils/100 WBC (Bld) 3.8 % Normal 0.9-7.0 [facility] Comment on above: Performed By: #### V ITAD, FETIBC, FERR #### [facility] [address] [place] [address] Dr. Andrey Hargrove Erythrocyte distribution width (RBC) [Ratio] 14.7 % Normal 11.0-15.0 [facility] Comment on above: Performed By: #### V ITAD, FETIBC, FERR #### [facility] [address] [place] [address] Dr. Andrey Hargrove Hematocrit (Bld) [Volume fraction] 29.6 % Critically low 36.0-48.0 [facility] Comment on above: Performed By: #### V ITAD, FETIBC, FERR #### [facility] [address] [place] [address] Dr. Andrey Hargrove Hemoglobin (Bld) [Mass/Vol] 9.9 g/dL Critically low 12.0-16.0 [facility] Comment on above: Performed By: #### V ITAD, FETIBC, FERR #### [facility] [address] [place] [address] Dr. Andrey Hargrove IG # 0.03 10e3/ul Normal 0.00-0.03 [facility] Comment on above: Performed By: #### V ITAD, FETIBC, FERR #### [facility] [address] [place] [address] Dr. Andrey Hargrove IG % 0.4 % Normal 0.0-0.5 [facility] Comment on above: Performed By: #### V ITAD, FETIBC, FERR #### [facility] [address] [place] [address] Dr. Andrey Hargrove LYMPH # 1.3 103/ul Normal 1.2-3.8 [facility] Comment on above: Performed By: #### V ITAD, FETIBC, FERR #### [facility] [address] [place] [address] Dr. Andrey Hargrove Lymphocytes/100 WBC (Bld) 16.3 % Critically low 20.5-60.0 [facility] Comment on above: Performed By: #### V ITAD, FETIBC, FERR #### [facility] [address] [place] [address] Dr. Andrey Hargrove MANUAL DIFF REQ NO Normal [facility] Comment on above: Performed By: #### V ITAD, FETIBC, FERR #### [facility] [address] [place] [address] Dr. Andrey Hargrove MCH (RBC) [Entitic mass] 28.7 pg Normal 26.7-34.0 [facility] Comment on above: Performed By: #### V ITAD, FETIBC, FERR #### [facility] [address] [place] [address] Dr. Andrey Hargrove MCHC (RBC) [Mass/Vol] 33.4 g/dL Normal 29.9-35.2 [facility] Comment on above: Performed By: #### V ITAD, FETIBC, FERR #### [facility] [address] [place] [address] Dr. Andrey Hargrove MCV (RBC) [Entitic vol] 85.8 fL Normal 81.0-99.0 [facility] Comment on above: Performed By: #### V ITAD, FETIBC, FERR #### [facility] [address] [place] [address] Dr. Andrey Hargrove MONO # 0.7 103/ul Normal 0.3-0.8 [facility] Comment on above: Performed By: #### V ITAD, FETIBC, FERR #### [facility] [address] [place] [address] Dr. Andrey Hargrove Monocytes/100 WBC (Bld) 8.7 % Normal 1.7-12.0 [facility] Comment on above: Performed By: #### V ITAD, FETIBC, FERR #### [facility] [address] [place] [address] Dr. Andrey Hargrove NEUT # 5.4 103/ul Normal 1.4-6.5 [facility] Comment on above: Performed By: #### V ITAD, FETIBC, FERR #### [facility] [address] [place] [address] Dr. Andrey Hargrove Neutrophils/100 WBC (Bld) 70.1 % Normal 43.0-75.0 [facility] Comment on above: Performed By: #### V ITAD, FETIBC, FERR #### [facility] [address] [place] [address] Dr. Andrey Hargrove Platelet mean volume (Bld) [Entitic vol] 10.9 fL Normal 9.5-13.5 [facility] Comment on above: Performed By: #### V ITAD, FETIBC, FERR #### [facility] [address] [place] [address] Dr. Andrey Hargrove PLT 171 103/ul Normal 150-450 [facility] Comment on above: Performed By: #### V ITAD, FETIBC, FERR #### [facility] [address] [place] [address] Dr. Andrey Hargrove RBC 3.45 106/ul Critically low 4.20-5.40 [facility] Comment on above: Performed By: #### V ITAD, FETIBC, FERR #### [facility] [address] [place] [address] Dr. Andrey Hargrove WBC 7.7 103/ul Normal 4.0-11.0 [facility] Comment on above: Performed By: #### V ITAD, FETIBC, FERR #### [facility] [address] [place] [address] Dr. Andrey Hargrove PROF CHEM 8 (BAS METB)on Anion gap [Moles/Vol] 9.8 mmol/L Normal [facility] Comment on above: Performed By: #### V ITAD, FETIBC, FERR #### [facility] [address] [place] [address] Dr. Andrey Hargrove Calcium [Mass/Vol] 9.1 mg/dL Normal 8.5-10.1 [facility] Comment on above: Performed By: #### V ITAD, FETIBC, FERR #### [facility] [address] [place] [address] Dr. Andrey Hargrove Chloride [Moles/Vol] 96 mmol/L Critically low 98-107 [facility] Comment on above: Performed By: #### V ITAD, FETIBC, FERR #### [facility] [address] [place] [address] Dr. Andrey Hargrove CO2 [Moles/Vol] 30.8 mmol/L Normal 21.0-32.0 [facility] Comment on above: Performed By: #### V ITAD, FETIBC, FERR #### [facility] [address] [place] [address] Dr. Andrey Hargrove Creatinine [Mass/Vol] 2.28 mg/dL Critically high 0.55-1.02 [facility] Comment on above: Performed By: #### V ITAD, FETIBC, FERR #### [facility] [address] [place] [address] Dr. Andrey Hargrove EGFR-AF PANAMANIAN 26 mL/min/1.73m2 Critically low >=60 [facility] Comment on above: Performed By: #### V ITAD, FETIBC, FERR #### [facility] [address] [place], [place] [id number] Dr. Andrey Hargrove EGFR-NON AF PANAMANIAN 21 mL/min/1.73m2 Critically low >=60 [facility] Comment on above: Performed By: #### V ITAD, FETIBC, FERR #### [facility] [address] [place] [address] Dr. Andrey Hargrove Glucose [Mass/Vol] 158 mg/dL Critically high 74-106 [facility] Comment on above: Performed By: #### V ITAD, FETIBC, FERR #### [facility] [address] [place] [address] Dr. Andrey Hargrove Potassium [Moles/Vol] 3.6 mmol/L Normal 3.5-5.1 [facility] Comment on above: Performed By: #### V ITAD, FETIBC, FERR #### [facility] [address] [place] [address] Dr. Andrey Hargrove Sodium [Moles/Vol] 133 mmol/L Critically low 136-[address] [facility] Comment on above: Performed By: #### V ITAD, FETIBC, FERR #### [facility] [address] [place] [address] Dr. Andrey Hargrove Urea nitrogen [Mass/Vol] 66.0 mg/dL Critically high 7.0-18 .0 [facility] Comment on above: Performed By: #### V ITAD, FETIBC, FERR #### [facility] [address] [place] [address] Dr. Andrey Hargrove Urea nitrogen/Creatinine [Mass ratio] 28.9 mg/mg Normal [facility] Comment on above: Performed By: #### V ITAD, FETIBC, FERR #### [facility] [address] [place] [address] Dr. Andrey Hargrove MAGNESIUMon 03-17-2022 Magnesium [Mass/Vol] 1.9 mg/dL Normal 1.8-2.4 [facility] Comment on above: Performed By: #### V ITAD, FETIBC, FERR #### [facility] [address] [place] [address] Dr. Andrey Hargrove PROF CHEM 8 (BAS METB)on Anion gap [Moles/Vol] 11.7 mmol/L Normal [facility] Comment on above: Performed By: #### V ITAD, FETIBC, FERR #### [facility] [address] [place] [address] Dr. Andrey Hargrove Calcium [Mass/Vol] 9.4 mg/dL Normal 8.5-10.1 [facility] Comment on above: Performed By: #### V ITAD, FETIBC, FERR #### [facility] [address] [address] [address] Andrey Hargrove Chloride [Moles/Vol] 97 mmol/L Critically low 98-107 [facility] Comment on above: Performed By: #### V ITAD, FETIBC, FERR #### [facility] [address] [place] [address] Dr. Andrey Hargrove CO2 [Moles/Vol] 29.0 mmol/L Normal 21.0-32.0 [facility] Comment on above: Performed By: #### V ITAD, FETIBC, FERR #### [facility] [address] [address] [address] Andrey Hargrove Creatinine [Mass/Vol] 2.02 mg/dL Critically high 0.55-1.02 [facility] Comment on above: Performed By: #### V ITAD, FETIBC, FERR #### [facility] [address] [place] [address] Dr. Andrey Hargrove EGFR-AF PANAMANIAN 30 mL/min/1.73m2 Critically low >=60 [facility] Comment on above: Performed By: #### V ITAD, FETIBC, FERR #### [facility] [address] [place] [address] Dr. Andrey Hargrove EGFR-NON AF PANAMANIAN 24 mL/min/1.73m2 Critically low >=60 [facility] Comment on above: Performed By: #### V ITAD, FETIBC, FERR #### [facility] [address] [address] [address] Andrey Hargrove Glucose [Mass/Vol] 204 mg/dL Critically high 74-106 T [facility] Comment on above: Performed By: #### V ITAD, FETIBC, FERR #### [facility] [address] [place] [address] Dr. Andrey Hargrove Potassium [Moles/Vol] 3.7 mmol/L Normal 3.5-5.1 [facility] Comment on above: Performed By: #### V ITAD, FETIBC, FERR #### [facility] [address] [place] [address] Dr. Andrey Hargrove Sodium [Moles/Vol] 134 mmol/L Critically low 136-[address] [facility] Comment on above: Performed By: #### V ITAD, FETIBC, FERR #### [facility] [address] [place] [address] Dr. Andrey Hargrove Urea nitrogen [Mass/Vol] 60.0 mg/dL Critically high 7.0-18 .0 [facility] Comment on above: Performed By: #### V ITAD, FETIBC, FERR #### [facility] [address] [place] [address] Dr. Andrey Hargrove Urea nitrogen/Creatinine [Mass ratio] 29.7 mg/mg Normal [facility] Comment on above: Performed By: #### V ITAD, FETIBC, FERR #### [facility] [address] [place] [address] Dr. Andrey Hargrove PTH INTACTon 01-18-2022 PTH, Intact 51 pg/mL Normal 15-65 [facility] Comment on above: Performed By: #### L IPID, TSH, FT3 #### [facility] [address] [place] [address] Dr. Andrey Hargrove FERRITINon 01-17-2022 Ferritin [Mass/Vol] 133.0 ng/mL Normal 8.0-252.0 [facility] Comment on above: Performed By: #### V ITAD, FETIBC, FERR #### [facility] [address] [place] [address] Dr. Andrey Hargrove HEMOGRAM AND PLATELon 07-18- 2022 Hematocrit (Bld) [Volume fraction] 31.7 % Critically low 36.0-48.0 [facility] Comment on above: Performed By: #### V ITAD, FETIBC, FERR #### [facility] [address] [place] [address] Dr. Andrey Hargrove Hemoglobin (Bld) [Mass/Vol] 10.2 g/dL Critically low 12.0-16.0 [facility] Comment on above: Performed By: #### V ITAD, FETIBC, FERR #### [facility] [address] [place] [address] Dr. Andrey Hargrove MCH (RBC) [Entitic mass] 28.3 pg Normal 26.7-34.0 [facility] Comment on above: Performed By: #### V ITAD, FETIBC, FERR #### [facility] [address] [place] [address] Dr. Andrey Hargrove MCHC (RBC) [Mass/Vol] 32.2 g/dL Normal 29.9-35.2 [facility] Comment on above: Performed By: #### V ITAD, FETIBC, FERR #### [facility] [address] [place] [address] Dr. Andrey Hargrove MCV (RBC) [Entitic vol] 88.1 fL Normal 81.0-99.0 [facility] Comment on above: Performed By: #### V ITAD, FETIBC, FERR #### [facility] [address] [place] [address] Dr. Andrey Hargrove PLT 198 103/ul Normal 150-450 [facility] Comment on above: Performed By: #### V ITAD, FETIBC, FERR #### [facility] [address] [place] [address] Dr. Andrey Hargrove RBC 3.60 106/ul Critically low 4.20-5.40 [facility] Comment on above: Performed By: #### V ITAD, FETIBC, FERR #### [facility] [address] [place] [address] Dr. Andrey Hargrove WBC 8.5 103/ul Normal 4.0-11.0 [facility] Comment on above: Performed By: #### V ITAD, FETIBC, FERR #### [facility] [address] [place] [address] Dr. Andrey Hargrove IRON AND TIBCon 01-17-2022 % SATURATION 17.8 % Normal [facility] Comment on above: Performed By: #### V ITAD, FETIBC, FERR #### [facility] [address] [place] [address] Dr. Andrey Hargrove Iron [Mass/Vol] 47.0 ug/dL Critically low 50.0-170.0 [facility] Comment on above: Performed By: #### V ITAD, FETIBC, FERR #### [facility] [address] [place] [address] Dr. Andrey Hargrove TIBC DIRECT 264.0 ug/dL Normal 250.0-450.0 [facility] Comment on above: Performed By: #### V ITAD, FETIBC, FERR #### [facility] [address] [place] [address] Dr. Andrey Hargrove MAGNESIUMon 01-17-2022 Magnesium [Mass/Vol] 2.0 mg/dL Normal 1.8-2.4 [facility] Comment on above: Performed By: #### V ITAD, FETIBC, FERR #### [facility] [address] [place] [address] Dr. Andrey Hargrove RENAL FUNCTION PANELon 01-17 Albumin [Mass/Vol] 3.3 g/dL Critically low 3.4-5.0 [facility] Comment on above: Performed By: #### V ITAD, FETIBC, FERR #### [facility] [address] [place] [address] Dr. Andrey Hargrove Calcium [Mass/Vol] 9.1 mg/dL Normal 8.5-10.1 [facility] Comment on above: Performed By: #### V ITAD, FETIBC, FERR #### [facility] [address] [place] [address] Dr. Andrey Hargrove Chloride [Moles/Vol] 104 mmol/L Normal 98-107 [facility] Comment on above: Performed By: #### V ITAD, FETIBC, FERR #### [facility] [address] [place] [address] Dr. Andrey Hargrove CO2 [Moles/Vol] 27.6 mmol/L Normal 21.0-32.0 [facility] Comment on above: Performed By: #### V ITAD, FETIBC, FERR #### [facility] [address] [place] [address] Dr. Andrey Hargrove Creatinine [Mass/Vol] 1.71 mg/dL Critically high 0.55-1.02 [facility] Comment on above: Performed By: #### V ITAD, FETIBC, FERR #### [facility] [address] [place] [address] Dr. Andrey Hargrove EGFR-AF PANAMANIAN 36 mL/min/1.73m2 Critically low >=60 [facility] Comment on above: Performed By: #### V ITAD, FETIBC, FERR #### [facility] [address] [place] [address] Dr. Andrey Hargrove EGFR-NON AF PANAMANIAN 30 mL/min/1.73m2 Critically low >=60 [facility] Comment on above: Performed By: #### V ITAD, FETIBC, FERR #### [facility] [address] [place] [address] Dr. Andrey Hargrove Glucose [Mass/Vol] 115 mg/dL Critically high 74-106 [facility] Comment on above: Performed By: #### V ITAD, FETIBC, FERR #### [facility] [address] [place] [address] Dr. Andrey Hargrove Phosphate [Mass/Vol] 4.3 mg/dL Normal 2.6-4.7 [facility] Comment on above: Performed By: #### V ITAD, FETIBC, FERR #### [facility] [address] [place] [address] Dr. Andrey Hargrove Potassium [Moles/Vol] 3.9 mmol/L Normal 3.5-5.1 [facility] Comment on above: Performed By: #### V ITAD, FETIBC, FERR #### [facility] [address] [place] [address] Dr. Andrey Hargrove Sodium [Moles/Vol] 139 mmol/L Normal 136-145 [facility] Comment on above: Performed By: #### V ITAD, FETIBC, FERR #### [facility] [address] [place] [address] Dr. Andrey Hargrove Urea nitrogen [Mass/Vol] 38.0 mg/dL Critically high 7.0-18 .0 [facility] Comment on above: Performed By: #### V ITAD, FETIBC, FERR #### [facility] [address] [place] [address] Dr. Andrey Hargrove UA RANDOM W/MICROSCOPICon BACTERIA NONE SEEN Normal NONE SEEN [facility] Comment on above: Performed By: #### L IPID, TSH, FT3 #### [facility] [address] [place] [address] Dr. Adnrey Hargrove Bilirubin Ql (U) Negative Normal NEGATIVE [facility] Comment on above: Performed By: #### L IPID, TSH, FT3 #### [facility] [address] [place] [address] Dr. Andrey Hargrove CAST SEEN Abnormal NONE [facility] Comment on above: Performed By: #### L IPID, TSH, FT3 #### [facility] [address] [place] [address] Dr. Andrey Hargrove Clarity (U) CLEAR Normal CLEAR [facility] Comment on above: Performed By: #### L IPID, TSH, FT3 #### [facility] [address] [place] [address] Dr. Andrey Hargrove Color (U) LT. YELLOW Normal YELLOW [facility] Comment on above: Performed By: #### L IPID, TSH, FT3 #### [facility] [address] [place] [address] Dr. Andrey Hargrove Crystals LM Nom (Urine sed) NONE SEEN Normal NONE SEEN [facility] Comment on above: Performed By: #### L IPID, TSH, FT3 #### [facility] [address] [place] [address] [address] Andrey Hargrove Epithelial cells LM Ql (Urine sed) FEW Abnormal NONE SEEN /RARE [facility] Comment on above: Performed By: #### L IPID, TSH, FT3 #### [facility] [address] [address] [address] Andrey Hargrove Glucose Ql (U) Negative Normal NEGATIVE [facility] Comment on above: Performed By: #### L IPID, TSH, FT3 #### [facility] [address] [address] [address] Andrey Hargrove Hemoglobin Ql (U) Negative Normal NEGATIVE [facility] Comment on above: Performed By: #### L IPID, TSH, FT3 #### [facility] [address] [place] [address] Dr. Andrey Hargrove HYALINE CAST RARE Normal [facility] Comment on above: Performed By: #### L IPID, TSH, FT3 #### [facility] [address] [place] [address] Dr. Andrey Hargrove Ketones Ql (U) Negative Normal NEGATIVE [facility] Comment on above: Performed By: #### L IPID, TSH, FT3 #### [facility] [address] [place] [address] Dr. Andrey Hargrove LEUKOCYTES TRACE Abnormal NEGATIVE [facility] Comment on above: Performed By: #### L IPID, TSH, FT3 #### [facility] [address] [address] [address] Andrey Hargrove MUCOUS NONE SEEN Normal NONE SEEN [facility] Comment on above: Performed By: #### L IPID, TSH, FT3 #### [facility] [address] [place] [address] Dr. Andrey Hargrove Nitrite Ql (U) Negative Normal NEGATIVE [facility] Comment on above: Performed By: #### L IPID, TSH, FT3 #### [facility] [address] [address] [address] Andrey Hargrove pH (U) 5.0 [pH] Normal 5-9 [facility] Comment on above: Performed By: #### L IPID, TSH, FT3 #### [facility] [address] [place] [address] Dr. Andrey Hargrove RBC 0-2 Normal 0-2 [facility] Comment on above: Performed By: #### L IPID, TSH, FT3 #### [facility] [address] [place] [address] Dr. Andrey Hargrove SPEC GRAVITY 1.020 Normal 1.005-<=1.02 5 [facility] Comment on above: Performed By: #### L IPID, TSH, FT3 #### [facility] [address] [place] [address] Dr. Andrey Hargrove UA PROTEIN Negative Normal NEGATIVE/ TRACE [facility] Comment on above: Performed By: #### L IPID, TSH, FT3 #### [facility] [address] [place] [address] Dr. Andrey Hargrove Urobilinogen Qn (U) 0.2 {Kelly'U}/dL Normal 0.2 - 1. 0 [facility] Comment on above: Performed By: #### L IPID, TSH, FT3 #### [facility] [address] [place] [address] Dr. Andrey Hargrove WBC 2-5 Abnormal NONE SEEN [facility] Comment on above: Performed By: #### L IPID, TSH, FT3 #### [facility] [address] [place] [address] Dr. Andrey Hargrove URIC ACID SERUMon 01-17-2022 Urate [Mass/Vol] 5.4 mg/dL Normal 2.6-6.0 [facility] Comment on above: Performed By: #### V ITAD, FETIBC, FERR #### [facility] [address] [place] [address] Dr. Andrey Hargrove URINE T PROTEIN CREAT RATIOo n 01-17-2022 Protein (U) [Mass/Vol] 15.3 mg/dL Critically high <=12.0 [facility] Comment on above: Performed By: #### V ITAD, FETIBC, FERR #### [facility] [address] [address] [address] Andrey Hargrove UR PROT CREAT RAT 0.36 Normal [facility] Comment on above: Performed By: #### V ITAD, FETIBC, FERR #### [facility] [address] [place] [address] Dr. Andrey Hargrove URINE CREAT 42.16 mg/dL Normal 20.00-300.00 [facility] Comment on above: Performed By: #### V ITAD, FETIBC, FERR #### [facility] [address] [place] [address] Dr. Andrey Hargrove VITAMIN D 25 OHon 01-17-2022 VIT D 25-OH 73.8 ng/mL Normal [facility] Comment on above: Performed By: #### V ITAD, FETIBC, FERR #### [facility] [address] [place] [address] Dr. Andrey Hargrove VIT D RANGES SEE BELOW [facility] Comment on above: Result Comment: <20 ng/mL Vit D deficient 20 - <30 ng/mL Vit D insufficient 30 - 100 ng/mL Vit D sufficient >100 ng/mL Potential Toxicity Performed By: #### V ITSHAQ, FETIBC, FERR #### [facility] [address] [place] [address] Dr. Andrey Hargrove PROF CHEM 8 (BAS METB)on Anion gap [Moles/Vol] 13.3 mmol/L Normal [facility] Comment on above: Performed By: #### V ITAD, FETIBC, FERR #### [facility] [address] [place] [address] Dr. Andrey Hargrove Calcium [Mass/Vol] 9.5 mg/dL Normal 8.5-10.1 [facility] Comment on above: Performed By: #### V ITAD, FETIBC, FERR #### [facility] [address] [place] [address] Dr. Andrey Hargrove Chloride [Moles/Vol] 98 mmol/L Normal 98-107 [facility] Comment on above: Performed By: #### V ITAD, FETIBC, FERR #### [facility] [address] [place] [address] Dr. Andrey Hargrove CO2 [Moles/Vol] 25.7 mmol/L Normal 21.0-32.0 [facility] Comment on above: Performed By: #### V ITAD, FETIBC, FERR #### [facility] [address] [place] [address] Dr. Andrey Hargrove Creatinine [Mass/Vol] 2.92 mg/dL Critically high 0.55-1.02 [facility] Comment on above: Performed By: #### V ITAD, FETIBC, FERR #### [facility] [address] [place] [address] Dr. Andrey Hargrove EGFR-AF PANAMANIAN 19 mL/min/1.73m2 Critically low >=60 [facility] Comment on above: Performed By: #### V ITAD, FETIBC, FERR #### [facility] [address] [place] [address] Dr. Andrey Hargrove EGFR-NON AF PANAMANIAN 16 mL/min/1.73m2 Critically low >=60 [facility] Comment on above: Performed By: #### V ITAD, FETIBC, FERR #### [facility] [address] [place] [address] Dr. Andrey Hargrove Glucose [Mass/Vol] 156 mg/dL Critically high 74-106 [facility] Comment on above: Performed By: #### V ITAD, FETIBC, FERR #### [facility] [address] [place] [address] Dr. Andrey Hargrove Potassium [Moles/Vol] 5.0 mmol/L Normal 3.5-5.1 [facility] Comment on above: Performed By: #### V ITAD, FETIBC, FERR #### [facility] [address] [place] [address] Dr. Andrey Hargrove Sodium [Moles/Vol] 132 mmol/L Critically low 136-[address] [facility] Comment on above: Performed By: #### V ITAD, FETIBC, FERR #### [facility] [address] [place], [place] [address] Dr. Andrey Hargrove Urea nitrogen [Mass/Vol] 77.0 mg/dL Critically high 7.0-18 .0 [facility] Comment on above: Result Comment: CALL ED TO FRANCIS JUNG RMA Performed By: #### V ITAD, FETIBC, FERR #### [facility] [address] [place], [place] [address] Dr. Andrey Hargrove Urea nitrogen/Creatinine [Mass ratio] 26.4 mg/mg Normal [facility] Comment on above: Performed By: #### V ITAD, FETIBC, FERR #### [facility] [address] [place], [place] [address] Dr. Andrey Hargrove Cardiovascular Lab Reporton 12-10-2021 Cardiovascular Lab Report [facility] Patient Name: Sameer [facility] MR #: [id number] Physician: Karthik Calvo of [facility] Date: 12/09/2021 Division of Birthdate: 1950 Cardiology Room #: Adult Cardiovascular Services [place] [address] Cardiovascular Laboratory Report INDICATION: The patient is [...] signed informed consent. 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 The right neck area was prepped and draped in usual fashion. Micropuncture technique and ultrasound guidance were used for access in the right internal jugular vein. A 5-Lithuanian x 11 cm sheath was placed. A 5-Lithuanian Dumont catheter was used for right heart [...] Fish M.D. Date Trans: 12/09/2021 11:37 P/joey [id number] cc: John Perdomo D.O. [address] [facility] [address] [facility] CBC COMPLETE BLOOD COUNTon 0 12-09-2021 Erythrocyte distribution width (RBC) [Ratio] 13.6 % Normal 11.5-15.[address] [facility] Comment on above: Performed By: #### 5 [id number] #### [facility] [address] [place] [address], [facility] Hematocrit (Bld) [Volume fraction] 35.6 % Low 36.0-45.[address] [facility] Comment on above: Performed By: #### 5 [id number] #### [facility] [address] [place] [address], [facility] Hemoglobin (Bld) [Mass/Vol] 11.8 g/dL Low 12.0-15.[address] [facility] Comment on above: Performed By: #### 5 [id number] #### [facility] [address] [place] [address], [facility] MCH (RBC) [Entitic mass] 28.6 pg Normal 27.0-33.[address] [facility] Comment on above: Performed By: #### 5 [id number] #### [facility] [address] MCHC (RBC) [Mass/Vol] 33.1 g/dL Normal 32.0-35.[address] [facility] Comment on above: Performed By: #### 5 [id number] #### [facility] [address] [place] [address], [facility] MCV (RBC) [Entitic vol] 86.2 fL Normal 82.0-98.0 [facility] Comment on above: Performed By: #### 5 [id number] #### [facility] [address] Nucleated RBC/100 WBC (Bld) [Ratio] 0 % Normal 0-[address] [facility] Comment on above: Performed By: #### 5 [id number] #### [facility] [address] [address], [facility] PLAT CNT 240 10*3/uL Normal 150-[address] [facility] Comment on above: Performed By: #### 5 [id number] #### [facility] [address] [place] [id number], [facility] RBC (Bld) [#/Vol] 4.13 10*6/uL Normal 3.80-5.[address] [facility] Comment on above: Performed By: #### 5 [id number] #### [facility] [address] [place] [address], [facility] WBC (Bld) [#/Vol] 14.13 10*3/uL High 4.00-10.[address] [facility] Comment on above: Performed By: #### 5 [id number] #### [facility] [address] [facility] Covid-19 PCR (CVDTB)on SARS-CoV-2 (COVID-19) RNA JAYASHREE+probe Ql (Unsp spec) Not detected Normal NOT DETECTED [facility] Comment on above: Result Comment: This test is not yet approved or cleared by the [place] FDA. When there are no FDA-approved or cleared tests available, and other criteria are met, FDA can make tests available under an emergency access mechanism called an Emergency Use Authorization (EUA). The EUA for this test is supported by the [place] of Health and Human Service's (HHS's) declaration [...] with SARS-CoV-2. Performed By: #### V ITAD, FETIB, FERR #### [facility] [address] [place] [address] Dr. Andrey Hargrove ECHOCARDIO M/2D COMPLETEon 0 12-06-2021 ECHOCARDIO M/2D COMPLETE Patient: CLAUDIA ESTRELLA Exam Date: 12/06/2021 : 1950 Gender:F Ordering : KWAN ROSALES Admission #: [id number] Family : DR JOHN Blake.O. Order #: [id number] CLICK HERE TO VIEW EXAM ECHOCARDIOGRAM REPORT [...] Area(A4C): 14.80 cm2 Left Atrium Systolic Volume(A2C): 91053 mm3 Left Atrium Systolic Volume(A4C): 20588 mm3 Mitral Valve MV E to A [...] Fish M.D. on 12/06/2021 at 17:31 Normal [facility] BNPon 12-01-2021 Natriuretic peptide B (Bld) [Mass/Vol] 5127.0 pg/mL Critically high <=900.0 [facility] Comment on above: Performed By: #### V DANIA VASQUES, FERR #### [facility] [address] [place] [address] Dr. Andrey Hargrove PROF CHEM 8 (BAS METB)on Anion gap [Moles/Vol] 13.9 mmol/L Normal [facility] Comment on above: Performed By: #### V DANIA VASQUES, FERR #### [facility] [address] [address] [address] Andrey Hargrove Calcium [Mass/Vol] 9.4 mg/dL Normal 8.5-10.1 [facility] Comment on above: Performed By: #### V ITAD, FETIBC, FERR #### [facility] [address] [address] [address] Andrey Hargrove Chloride [Moles/Vol] 99 mmol/L Normal 98-107 [facility] Comment on above: Performed By: #### V ITAD, FETIBC, FERR #### [facility] [address] [place] [address] Dr. Andrey Hargrove CO2 [Moles/Vol] 28.4 mmol/L Normal 21.0-32.0 [facility] Comment on above: Performed By: #### V ITAD, FETIBC, FERR #### [facility] [address] [place] [address] Dr. Andrey Hargrove Creatinine [Mass/Vol] 2.11 mg/dL Critically high 0.55-1.02 [facility] Comment on above: Performed By: #### V ITAD, FETIBC, FERR #### [facility] [address] [place] [address] Dr. Andrey Hargrove EGFR-AF PANAMANIAN 28 mL/min/1.73m2 Critically low >=60 [facility] Comment on above: Performed By: #### V ITAD, FETIBC, FERR #### [facility] [address] [place] [address] Dr. Andrey Hargrove EGFR-NON AF PANAMANIAN 23 mL/min/1.73m2 Critically low >=60 [facility] Comment on above: Performed By: #### V ITAD, FETIBC, FERR #### [facility] [address] [place] [address] Dr. Andrey Hargrove Glucose [Mass/Vol] 179 mg/dL Critically high 74-106 [facility] Comment on above: Performed By: #### V ITAD, FETIBC, FERR #### [facility] [address] [place] [address] Dr. Andrey Hargrove Potassium [Moles/Vol] 4.3 mmol/L Normal 3.5-5.1 [facility] Comment on above: Performed By: #### V ITAD, FETIBC, FERR #### [facility] [address] [place] [address] Dr. Andrey Hargrove Sodium [Moles/Vol] 137 mmol/L Normal 136-145 [facility] Comment on above: Performed By: #### V ITAD, FETIBC, FERR #### [facility] [address] [place] [address] Dr. Andrey Hargrove Urea nitrogen [Mass/Vol] 62.0 mg/dL Critically high 7.0-18 .0 [facility] Comment on above: Performed By: #### V ITAD, FETIBC, FERR #### [facility] [address] [place] [address] Dr. Andrey Hargrove Urea nitrogen/Creatinine [Mass ratio] 29.4 mg/mg Normal [facility] Comment on above: Performed By: #### V ITAD, FETIBC, FERR #### [facility] [address] [place] [address] Dr. Andrey Hargrove BNPon 11-19-2021 Natriuretic peptide B (Bld) [Mass/Vol] 4773.0 pg/mL Critically high <=900.0 [facility] Comment on above: Performed By: #### V ITAD, FETIBC, FERR #### [facility] [address] [place] [address] Dr. Andrey Hargrove PROF CHEM 8 (BAS METB)on Anion gap [Moles/Vol] 11.3 mmol/L Normal [facility] Comment on above: Performed By: #### V ITAD, FETIBC, FERR #### [facility] [address] [place] [address] Dr. Andrey Hargrove Calcium [Mass/Vol] 8.9 mg/dL Normal 8.5-10.1 [facility] Comment on above: Performed By: #### V ITAD, FETIBC, FERR #### [facility] [address] [place] [address] Dr. Andrey Hargrove Chloride [Moles/Vol] 100 mmol/L Normal 98-107 [facility] Comment on above: Performed By: #### V ITAD, FETIBC, FERR #### [facility] [address] [place] [address] Dr. Andrey Hargrove CO2 [Moles/Vol] 30.9 mmol/L Normal 21.0-32.0 [facility] Comment on above: Performed By: #### V ITAD, FETIBC, FERR #### [facility] [address] [place] [address] Dr. Andrey Hargrove Creatinine [Mass/Vol] 2.01 mg/dL Critically high 0.55-1.02 [facility] Comment on above: Performed By: #### V ITAD, FETIBC, FERR #### [facility] [address] [place] [address] Dr. Andrey Hargrove EGFR-AF PANAMANIAN 30 mL/min/1.73m2 Critically low >=60 [facility] Comment on above: Performed By: #### V ITAD, FETIBC, FERR #### [facility] [address] [place] [address] Dr. Andrey Hargrove EGFR-NON AF PANAMANIAN 24 mL/min/1.73m2 Critically low >=60 [facility] Comment on above: Performed By: #### V ITAD, FETIBC, FERR #### [facility] [address] [place] [address] Dr. Andrey Hargrove Glucose [Mass/Vol] 81 mg/dL Normal 74-106 [facility] Comment on above: Performed By: #### V ITAD, FETIBC, FERR #### [facility] [address] [place] [address] Dr. Andrey Hargrove Potassium [Moles/Vol] 3.2 mmol/L Critically low 3.5-5.1 [facility] Comment on above: Performed By: #### V ITAD, FETIBC, FERR #### [facility] [address] [place] [address] Dr. Andrey Hargrove Sodium [Moles/Vol] 139 mmol/L Normal 136-145 [facility] Comment on above: Performed By: #### V ITAD, FETIBC, FERR #### [facility] [address] [place] [address] Dr. Andrey Hargrove Urea nitrogen [Mass/Vol] 51.0 mg/dL Critically high 7.0-18 .0 [facility] Comment on above: Performed By: #### V DANIA VASQUES, FERR #### [facility] [address] [address] [address] Andrey Hargrove Urea nitrogen/Creatinine [Mass ratio] 25.4 mg/mg Normal [facility] Comment on above: Performed By: #### V CPARICE, DANIA, FERR #### [facility] [address] [address] [address] Andrey Hargrove COVID-19 Antigenon 2 COVID-19 [...] its performance Kenny Disclaimer characteristic determined by [employer] and Kenny Disclaimer validated at [place]. This Kenny Disclaimer test has not been [...] is terminated or revoked sooner. PERFORMED BY: [place] [id number] PATHOLOGIST FASHION ILLUSTRATOR JAMAL ALLEN M.D. [facility] Comment on above: Performed By: #### S OFIAPOS, COVID-19 KENNY #### [facility] [address] [place] [address] Kenny Ag Positiveon 07-31-19 Kenny Ag Positive Positive Critically abnormal Negative [place] Comment on above: Result Comment: This is a duplicate Kenny SARS Antigen (JOSE RAMON) result to be used for statistical tracking purpose only. PERFORMED BY: [place] [address] PATHOLOGIST FASHION ILLUSTRATOR JAMAL ALLEN M.D. Performed By: #### S OFIAPOS, COVID-19 KENNY #### [facility] [address] [place] [address] Coding Summary.on 12-22-2020 Coding Summary. CD:[id number] Gh0bWw+PGhlYWQ+PE1FV WRgQ44vfOEroP8PX1sTN Y0EOMGIHFYKDH3GWT6kg MB5WMwnY4OiflOj XmfktSKvAK74JNi1MOC3 iOsjWKjstC2niYVaQ9d3 IcIpWL47yO79UPnoXLCb TtY9GuYxfltrwBQo I9bsQmEdxWLcVxz+PHRh YmxlIHdpZHRoPScxMDAl TnOhvEvdQN2rGv1kKRPv LWNvbGxhcHNlOiBj f0giHLWoPYntSD3iuTmk Q8OmxPC1PGAzd2o6Tu74 dHI+PLDqXHR2qVefQEcl j651SkMrk4jpAYT1 bDCcZIdfLFT2Z87na3F5 CEWrBWBxLLI3yXA2dO0z hMljbwnfJ9SsrSQnCaO6 RUB0rOSrhE0ipFwc qqbudC9wJfo+D05VYG6D JOOSFJ2WJfc5T5UgXxzm dHI+HW98MROjRD00hDCq hRLib2hyvQd4ZhMz JULtIUY4iVdzUFztv1Pg YNJbM05vtVJbd8R3XVUo tGkfqRWuBpQdnSY1sH7k OCuwiztmf6qlwwjw Vbvds3ikzz09kR51N33q SSkjBZNkDXG1RYPzUXBe bVvhbq5wjF9lAq0+IDxj u0oxa1isbQc1MwJp DUYsphNyyLgzRYY4g9Uf Ea81S4CemRntx0CmAdy3 zz59tZXyj6I0uXR1NJir HTVitG1gOUrgVyO0 ASEeRqWeoB66tZPdZShi Kr4bpEveoIetQI3pHBUv xedrMUNlhD8dNXZxbKUn fQbfMR0yKRHozgnv u012VvKpEIG9INGdfEUt E5RzhO8vDhEqOJXrWOVo V5SwkQJgNAwlK701QLbn DgS0XWTeujXfL5Mo PJOkjPptIrZ9j7X4Hu9W m5HsxbljLAF7JPlkVAZ1 NkZiLjKsSrM7Z4ByMfp2 HJAgwBekDT2pX4Wr RWWfevdcxvdqgVG7LBNv EMQxuQ18iEBcHTdqNt2i w8D3e686WTBvZAOijX87 Oz8rcZhpVGQyiSQS eQ8zusavn7rypyjpWeTy DWIrDRz3CGu1SGXkwHuw LzTfAVP8PeG1BJS1cCWy iD0saWcifrnjpD0i Oyc+W07pvR9kUKI7AAG4 yfzkXKZwylXmGS57GP24 T7KoSifakBTuxEJ+PGRp boZhcZqgEF3gBpEe t3dfa0RkLXwtE0MlIGXr DMehInv5LSUlDXV5xSJ9 sC9lSMSiDPpzq7H0aUE5 H7RfnzAlcr9ij2bs JUDhPAvhM71yjQNeq6F9 UUOqmEK0SJMitFksNnLd nI16Dhz+QVCefVbmg5Wv Zurqq5gxb7hreDl0 IjMwJSIgdmFsaWduPSJ0 f3FgFn97I82iDVmsVSUa IKYcQSKjJEIqeIcpzt3n sL5vIa5+PGNvbCB3 bIS1wD4rYDSaIxY6FDwg P882CyEedYWlTxpkv7ps t2igwQb0EzXjUVEibtQu gBukMBP0y2LsKh30 K51tKOkrBAVnRYNzHRCc LSBerCebtc2onR3bCn6+ UD0qc4iagp56oH42jEZ+ MYHnDYD3sEuySKnv HRMjyS6sUXwyPqB0KPZa HkFudG31dQNuZZvqMz3v zKbumOolTA1qTTDpglmd c720FnAyy9qvFIXv mEWjYHmmOAG4G11rn4N8 QNEfIZCbRVT4pCA7pT3s bGlnbjogbGVmdDsgdmVy gJijMXswFRuwD229 IHRvcDsnPlBhdGllbnQg UrYqYYq7D1WzLtz7RIWs hPhwDF6cqAKcXVjjUe6l mYruoZawXQ4vAGPr ivmjw862LuRsd8xgNXHa aODdPEqiDST3A01dc9H0 NMAbMZClMOK4qFU2rC2p bGlnbjogbGVmdDsg drBtyWkuONhgCBqnP400 IHRvcDsnPkJpcnRoIERh rVE9NH62LN58aGMzv6W5 rAS1S7KeNBLavjye vsmalMC1BSYvFUOayH65 Bq6qvFtdXk3xGYUaHRS1 PLKxcQCaR0GzbY4qZeCd YYQqUMIeV1McnVDx TRfcI735MAmqBzN6VQBk ayIeN6CoPHIqqDkjZqY1 t9I4Gh2HC0S2CV57MF08 tRVbl4L1gKP6M4Pw DRQhfdtneixdyKW2ODQi CDFhiE12Jv6ixSntSs1b BONpJYQ0PUNwvCTcR4Fn tE9uTbIqGPBdPPOc L3ColAOiDIjlR245MCoc VeK8ASJvesDvQ7NeUQIl xEphPfW5y4C1Dk4CFSm5 EH55AT88pRNqp0Y4 eIE4K9CjVTHdwgytgnjv vJO9VQMnKHHxpC55Cs0r xHsgPl1uNAIfLFT5VZQr pBElH1AeiX6mVqFp QBNaTYXtV3TkpSKqFGrl W283NJreBlD5LPTujoNr U4PjFTNqeBcpOlC1x8I2 Gm2TRAOcOU47CFA2 kGT0SO50FG51X5KqXlaz dGFibGU+PHRhYmxlIHdp ZHRoPScxMDAlJyBzdHls OM7mSd7wEXMzUCGh mEhjjIHjCsLts4dmJCEo VKfrCH9ouDjeF9PozIP1 WUSny4w4Mq67W02zV3Ps dXA+JTKexOM0oRA7 bZ6uSeGdFeW5ITesM547 KdJvzZJoUikar0iwn7mb aYt1UyQ1MNCihkQjsOja EZB2t6LkBw46S82n IHdpZHRoPSIxNSUiIHZh kPwqly2opK4lNh1+PGNv fKP8tOM5iJ3bFuMlIrL7 MYvkI039BsJivYUi Bzugp9wxq3xnuTv7OdXo RIGjphWgdFbvNJH7d9Pi Mc32Q2TgmPgix8YhJgx8 fe25cLPyq5M4jSI3 D1DtCAEzfoxfiDCuxNnj AX4aPRUzfbibLFEubF0k RBTtE2n8NyFxAuB1BVpr Z6OxhrL3SALyyNTc PMnzPVM5R65oe7O7ISNn AMAgFPZ9wUP7zI3uaYhh bjogbGVmdDsgdmVydGlj GJzvTEgrD988TMOy vDcpTWAnuR4rYKHasUGs tIcvVR9uJAHkndsyYg8F W7OVMgjgZ4nPDx5XTWR8 Q6AxBca9ZXGjzFmm YC8ipQZaGHchTl0tpEpc mFyxNF6vTYQywieeEHUx fF8kOBIzzTActPnsAH7a CWTadwhor966HqJo TWQ5AUKjrUUpP3EooV3l YwSdCUFvHJXeT4ErpFNr BJlfI390JOrdJiH3EXVo naDfA6GgCIKdtGan XvZ9g3A3Ar5uBA6lGa4m CHQgGS01HA33xILdp3W8 pKT3W9CtYYMhqreysbrb gIP0OZFiHZYobJ45 wBRdYVasAf9bf3E2l750 MICzYQVvlT67Rn4bbAsc MNMpjKVJiU1aeffes8ep cjogIzAwMDAwMDt0 YYp9KWBseXslElIsOGM7 TsO0LSG3iJFwgY8sjCfr qhfryO7cKzy+NjkgWWVh fxN6O8QaUsf3QNYk eCrpUU8xyDKhGLctWm1x dKwukQhzFR2lFEHyptmh FPFcnP5fOWRqhZNfbWbx UD0kGCZvahaka701 LaKuPXF2UICplRFdX4Qk tF6tLjYuTPQiLNEkL0Hx pBGiWHkxL832YLmtOgJ2 SIIfqwHcP2HoGHGd bUoqSgF5g8G2Is5ZQL8s kQC7C3RfCax5YIMjmVsg HS2wlAStEVrgPt7frIzq pDiuRL7tSKDujfeo FGBokB2cENSglJHatZhy PX2iDRQmjxflf186CqXs PYK0HTDdcEEuT8LpmU2x AaIzPJQfHEGrQ4Qm hJXvJYmyU415YQlkWkG8 OIEpolSrZ6KuKEZhaIrt LmF7r4H3Do7ZCDEjCKQx dOEkRkM6Z8CtLjbx dHI+BN33GLNhEB45pVGj tUTsj3tyfBu6OgUaJZAm YCV9yNmeBYbgc7QaYVRr I96qsNXkt9Z8WAQa aCcaqCXqKpHcpKL0hD0h HExiueykq0mfyodrRhqa k7ysnp66rQ78M96qSJxa ZHRoPSIzMCUiIHZh uFrnic4jmE6tDt9+PGNv hQV8yHD8zZ8fMhOkNgU4 FVopG116DiDdyNGhZevh v7oiv8ighXc6GxIn PRPqzfKteXejYZE8x4Vt Lh46J13vNMuyDEEyEVAm RBGjPXOpmVujqb3lmV4b Ii8+BE0wf4huod64 sO38wSS+RCMsLMZ6rKdw ECnqQQEyrL1zQVjxRgD2 CITxYvMviD96jQCoIQgq Bn7ptOnoqIlgCU1u WBZmscgiu738KdBjr2pv YRXwxFErQMmkVAT7L24n j3Y6JNEwFAVvVDP9hJB0 qW5xjStijwtllIEc dDsgdmVydGljYWwtYWxp M224PLOpcJdoLcGqeKXm K5miebHHZI5aCsbguRV+ KCAdOYE1dIsxMCcu CHBwhC5kNVCnF1d0XhIu VvT1DByzV0IoaxR9JIGd hGTbENZyxLIJgG6hxpfz n9jbpfofGpCfGPMg CFh7IFb9XSWodKfrZhSz NOE0QsP2FWI3oTTzkE5v gVexvrezyY7fPmy+RklO OjwvdGQ+PHRkIHN0 aLybIGdcDMBbkG1nBNSy Z1d8TqSsMxG7EGvwD5Zj viW7CTQhqDWnEUGleDIH bI0qvxdnc6stfsir SqEbNPXkUAk6SPz9AKMk oCflIdQmZIV9FbP5AKU1 lHPclE0mpDgkazaajT4a Oyc+TVJOOjwvdGQ+ FIUfBNX0iZvlFCexIKWb xW9xPXEdD0i5EaMcTaR6 KQazM8WodlP9KBKclQRs VFYcoHGDlL3lhnrb s3dicpwiHaKyYOXjUTh2 LRs3TQEeaMvrOpWxOEP3 CwD5UDE6sKSrcK2hmAcz ljokaZ0kVvv+UGF5 GXR3FH49FR68K3XiWvwt dGFibGU+PHRhYmxlIHdp ZHRoPScxMDAlJyBzdHls CX5cYy0bWNXuLHHs bGxh (more content not included)... Normal [facility] Consent for Procedure/Surger yon 12-16-2020 Consent for Procedure/Surgery [id number] 28#1.00CD:127 Normal [facility] Formson 12-16-2020 Forms [id number]# 1.00CD:127 [facility] Lab Reportson 12-16-2020 Lab Reports [id number]# 1.00CD:127 [facility] Physician Referralon 021 Physician Referral [id number] #1.00CD:127 [facility] RAD - MISCon 12-16-2020 RAD - MISC [id number] 52#1.00CD:127 [facility] RAD - Ultrasound Reporton RAD - Ultrasound Report [id number] [id number] #1.00CD:127 [facility] Ambulatory Clinical Summaryo n 12-15-2020 Ambulatory Clinical Summary {79-18-84-d6-44-dc-4 r-86-l9-42-u3-37-52- c3-f8-10}CD:[id number] Normal [facility] Patient Educationon 12-16-19 Patient Education Urology [...] these instructions at home: Medicines ? Take sfqy-oyg-sejkjln and prescription medicines only as told by [...] the blood stops without treatment. ? Take dhat-pvi-inxbplf and prescription medicines only as told by your health care provider. ? Drink enough fluid to keep your urine clear or pale yellow. This information is not intended to replace advice given to you by your health care provider. Make sure you discuss any questions you have with your health care provider. Document Released: 06/19/2006 Document Revised: 11/13/2019 Document Reviewed: 07/22/2017 [employer] Patient Education ? 2019 [employer]. [facility] Urology Office/Clinic Noteon 12-15-2020 Urology Office/Clinic Note [...] The Urethra was dilated to: _18- 30 Lithuanian with sounds. Specimens Removed: None Removal: Cystoscope [...] Marcos Abreu, URL [facility] [address] [place] [phone] Additional Instructions: f/u PRN Patient Education Hematuria, Adult Donna Burnett, personally scribed for Dr. Kwon on 12/15/2020 15:55:59. . Documentation recorded by the jessee felix, accurately reflects the services(s) I performed and [...] 50,000 intl units (1.25 mg) oral capsule, 23378 International_Unit= 1 cap(s), Monday Zioptan 0.0015% ophthalmic solution Allergies erythromycin (Anaphylactic reaction) penicillin (Hives) Social History Alco (more content not included)... Normal [facility] Comment on above: Result Comment: Elec tronically Signed By: Marcos KWON MD\.br\Date and Time Signed: 12/15/20 15:58 EDT\.br\Electronically Co-Signed By: Donna Hartley\.br\Date and Time Co-Signed: 12/15/20 15:56 EDT Reminderson 12-14-2020 Reminders - From: Augusta Singh To: EU - Clinical; Sent: 12/11/2020 13:29:41 EDT Show up: 12/14/2020 13:29:00 EDT Subject: Urine culture Reminder/Recall Urine Culture PRW reviewed positive culture. [facility] C Urineon 12-13-2020 Bacteria identified [...] Locations R1: This test was performed at: [facility], [address] [place] [address], [facility] , , Normal [facility] Comment on above: Performed By: #### 2 [id number] ####[place] [address] Ambulatory Clinical Summaryo n 12-11-2020 Ambulatory Clinical Summary {55-33-6r-e0-16-cd-4 6-e9-4g-0x-m6-ak-d3- 6c-b8-cc}CD:[id number] [facility] Ambulatory Clinical Summary {67-3o-of-01-34-83-4 k-8r-cw-18-5t-6j-8d- 13-29-0f}CD:[id number] [facility] Ambulatory Clinical Summary {7o-1n-9c-78-2a-0b-4 7-8a-77-04-27-9u-2b- c5-e6-1f}CD:[id number] [facility] Patient Educationon 12-12-19 Patient Education Urology [...] these instructions at home: Medicines ? Take peov-zui-quxtonv and prescription medicines only as told by [...] the blood stops without treatment. ? Take fzxf-twn-atdqtqx and prescription medicines only as told by your health care provider. ? Drink enough fluid to keep your urine clear or pale yellow. This information is not intended to replace advice given to you by your health care provider. Make sure you discuss any questions you have with your health care provider. Document Released: 06/19/2006 Document Revised: 11/13/2019 Document Reviewed: 07/22/2017 [employer] Patient Education ? 2019 [employer] 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 Jenkins due to Hematuria. Pt states that since the End of October she has been feeling a slight squeeze, no pain associated with this. Pt had a Renal US done at [facility]. Pt states that she has a [...] Marcos Abreu, URL [address] [place] [address] [place] [address]- [phone] Additional Instructions: Patient Education Hematuria, Adult I, [...] Tab amLOD (more content not included)... [facility] Comment on above: Result Comment: Elec tronically Signed By: Marcos KWON MD\.br\Date and Time Signed: 12/11/20 11:17 EDT\.br\Electronically Co-Signed By: Regla Pyle MA\.br\Date and Time Co-Signed: 12/11/20 11:12 EDT Lab Reportson 11-16-2020 Lab Reports [id number] #1.00CD:127 Normal [facility] Lab Reports [id number] #1.00CD:127 [facility] RAD - Ultrasound Reporton RAD - Ultrasound Report [id number] [id number] #1.00CD:127 Normal [facility] IntraOperative Documentson 1 07-12-2019 IntraOperative Documents [id number] [id number] 3#1.00CD:127 [facility] Message from Medicareon Message from Medicare [id number]#1 .00CD:127 [facility] Coding Summary.on 05-06-2020 Coding Summary. CODING DATE: 05/06/2020 FINAL [facility] STATUS: Home (Routine DC) PAYOR: [...] PROC APC STAT DESCRIPTION DOCTOR NAME DATE 21908 5420 J1 Arthroscopy, knee, David Talamantes DO 05/01/2020 surgical; with meniscectomy (medial OR lateral, including any meniscal shaving) including debridement/shaving of articular cartilage (chondroplasty), same or separate compartment(s), when performed LT Left side (used to identify procedures performed on the left side of the body) 91227 Anesthesia for open or Gurmeet Aldridge Jr, [...] Bowers Revised Date Saved: 05/06/2020 11:55 am [facility] Insurance Correspondence Off gudelia 05-05-2020 Insurance Correspondence Office [id number] 5#1.00CD:127 [facility] Main OR Intraoperative Recor don 05-05-2020 Main OR Intraoperative Record IntraOp Document Type FT Summary Primary Physician: David Talamantes DO Finalized Date/Time: 05/05/20 14:09:46 Pt. Name: SAMEER CLAUDIA Katerin Ramirez/Sex: 1950 Female Med Rec #: [id number] Physician: David Talamantes DO Financial #: [id number] Pt. Type: O Room/Bed: [place] [address] Admit/Disch: 05/01/20 11:43:14 - 05/04/20 12:35:00 Institution: [...] Role Performed Anesthesiologist of Surgeon - Primary Laboratory Technology Teacher - Primary Record Time In 05/01/20 14:26:00 05/01/20 14:39:00 05/01/20 14:26:00 Time Out 05/01/20 15:04:00 05/01/20 15:04:00 05/01/20 15:04:00 Procedure KNEE ARTHROSCOPY(Left) KNEE ARTHROSCOPY(Left) KNEE ARTHROSCOPY(Left) Comments Last Modified By: Viky Hernández RN RN, Viky Hernández RN, Viky Mcdonough 05/01/20 15:04:35 05/01/20 15:04:35 05/01/20 15:04:35 Entry 4 Entry 5 Entry 6 Case Attendee Maxim WU, Augusta Castro CST, Leatha Flowers RN, CNOR, Cee Role Performed Laboratory Technology Teacher - Primary Scrub - Primary Laboratory Technology Teacher - Relief Time In 05/01/20 14:26:00 05/01/20 [...] Jr, DO, Given Participants David Talamantes DO, Edgar WU, [...] and tissue Entry 1 Skin Integrity Intact, [place], Warm, and Skin Abnormality No Dry Outcomes Met? Yes Last Modified By: Viky Hernández RN 05/01/20 14:46:48 Post-Care Text: The patient is free from signs and symptoms of injury caused by extraneous objects Patient Positioning FT Pre-Care Text: Identifies physical alterations that require additional precautions for procedure-specific positioning, verifies presence of prosthetics or corrective (more content not included)... [facility] Progress Note-Physicianon Progress Note-Physician Patient: CLAUDIA [...] volume (mL): 1,000, 68.3 kg, 1.64, m2 Chevak 5/325 Tab: 1 tab(s), Tab, Oral, q4hr [...] Problems DM kidney disease / SNOMED CT 316617792 / Confirmed PVD (peripheral vascular disease) / SNOMED CT 2676885597 / Confirmed MMT (medial meniscus tear) / SNOMED CT 508470639 / Confirmed Resolved: Ocular herpes zoster / SNOMED CT 985427810 Resolved: HTN (hypertension) / SNOMED CT 7336794976 Canceled: Diabetes / SNOMED CT 081611906 Histories Past Medical History: No active or resolved past medical history items have been selected or recorded. Family History: No family history items have been selected or recorded. Procedure history: Right eye cataract extraction and insertion of intraocular lens (1123751153) on 11/19/2019 at 69 Years. Cataract extraction and insertion of intraocular lens (1320647192) on 11/06/2019 at 69 Years. Comments: 11/06/2019 14:13 EDT - Loreto Peralta RN Left Appendectomy (052254478). section x2 (50499173). Cholecystectomy (47319167). Anesthesia for laparoscopic procedure on lower abdomen (54936574). Cheilectomy of tarsal foot (0726448546). Social History Social & Psychosocial Habits Alcohol [...] results Radiology results ECG interpretation Condition Plan [place] [employer] Anesthesiologists (ASA) physical status classification: Class III. Anesthetic Preoperative (more content not included)... [facility] Comment on above: Result Comment: Elec [...] Problems DM kidney disease / SNOMED CT 791478208 / Confirmed PVD (peripheral vascular disease) / SNOMED CT 7158670756 / Confirmed MMT (medial meniscus tear) / SNOMED CT 950817553 / Confirmed Resolved: Ocular herpes zoster / SNOMED CT 026113365 Resolved: HTN (hypertension) / SNOMED CT 8885398524 Canceled: Diabetes / SNOMED CT 120807723 Physical Examination Vital Signs 05/01/2020 16:58 EDT [...] F/U Plan Transfer/ Discharge: Condition stable. [facility] Comment on above: Result Comment: Elec tronically Signed By: Gurmeet Aldridge Jr, DO\.rashmi\Date and Time Signed: 05/05/20 08:22 EST Capillary Glucose POCon Glucose [Mass/Vol] 149 mg/dL High 55-99 [facility] Comment on above: Result Comment: Monty MEDEIROS Performed By: #### 2 [id number] #### [facility] [address] [place] [address] Glucose [Mass/Vol] 127 mg/dL High 55-99 [facility] Comment on above: Result Comment: Monty MEDEIROS Performed By: #### 2 [id number] #### [facility] [address] [place] [address] Consent for Anesthesiaon Consent for Anesthesia [id number] 110 [id number] #1.00CD:127 [facility] Discharge Instructionson Discharge Instructions [id number] [id number] 9#1.00CD:127 Normal [facility] Inpatient Clinical Summaryon 05-04-2020 Inpatient Clinical Summary [place] [address] Clinical Summary Person Information: Name: CLAUDIA ESTRELLA Age: 70 Years : 1950 Sex: Female PCP: JOHN PERDOMO DO Marital Status: Race: White Ethnicity: Non- or Language: [place]inean Visit Id: Visit Reason: LEFT KNEE BONE BRUISE, MEDIAL MENISCUS TEAR, EFFUSION Speciality: Acuity: Enc Type: Observation Med Service: Surgery Arrival: 05/01/2020 11:43:14 Discharge: Dispo Type: Address: [address] [place] [address] Provider Notes: Diagnosis: 1:Other chest pain; 2:Hypertension; [...] up: With: Address: When: Follow up with Director Fixed Income Within 1 week With: Address: When: JOHN PERDOMO [address] [place] [address] Business (1) With: Address: When: David Talamantes [address] [place] [address] Business (1) Comments: Keep scheduled appointment Patient Education Information: Post Op Patient Instructions - FT (Custom); Knee Cryocuff Patient Instructions - FT (Custom); Talamantes - Knee Arthroscopy (Custom) (CUSTOM) [facility] Inpatient Patient Summaryon 05-04-2020 Inpatient Patient Summary [address] [address] Patient Discharge Instructions PERSON INFORMATION Name: CLAUDIA ESTRELLA Date of : 1950 Current Date: 05/04/2020 12:16:47 PHYSICIANS Admitting Physician: Nhung BARAHONA MD Primary Care Physician: JOHN PERDOMO DO PCP Comment: Discharge Diagnosis: 1:Other chest pain; 2:Hypertension; 3:Diabetes; 4:Acute medial meniscus tear of left knee; 5:Localized osteoarthritis of left knee; 6:No contraindication to deep vein thrombosis (DVT) prophylaxis Condition at Discharge: Improved SAEMER CLAUDIA Conklin has been given the following list of [...] up: With: Address: When: Follow up with Director Fixed Income Within 1 week With: Address: When: JOHN PERDOMO [facility] [place] [address] Business (1) With: Address: When: David Talamantes [address] [place] [address] Business (1) Comments: Keep scheduled appointment [...] STAY New Medications [id number], [address], [place] [id number], [phone] atorvastatin (Lipitor 20 mg Tab) 1 Tablets [...] amlodipine (amLO (more content not included)... [facility] Interdisciplinary Note - PTo n 05-04-2020 Interdisciplinary Note - PT PT Screen performed. Pt was able to stand and ambulate throughout room without difficulty and without an AD. Pt also demos appropriate ROM to knee. Would recommend to f/u with Ortho to determine if therapy is needed in the future, but no PT needed at this time [facility] IntraOperative Documentson 1 07-04-2019 IntraOperative Documents [id number] #1.00CD:127 [facility] IntraOperative Documents [id number] #1.00CD:127 [facility] Message from Medicareon Message from Medicare [id number] 11 [id number] 5#1.00CD:127 [facility] Monitor Recordon 05-04-2020 Monitor Record [id number] 6#1.00CD:127 [facility] Monitor Record [id number] 5#1.00CD:127 [facility] Monitor Record [id number] 7#1.00CD:127 [facility] Patient Education - Texton 1 07-04-2019 Patient Education - Text (Inserted Image . Unable to display) [place], [place] [facility] DISCHARGE INSTRUCTIONS: KNEE ARTHROSCOPY [...] your appointment. David Talamantes, DO [facility] [address] [place] [address] Reviewed: 10-08 [facility] Preoperative Documentson Preoperative Documents [id number] #1.00CD:127 [facility] Preoperative Documents [id number] 110 [id number] #1.00CD:127 Normal [facility] Prescriptions/Work Noteson 1 07-04-2019 Prescriptions/Work Notes [id number] #1.00CD:127 Normal [facility] Capillary Glucose POCon 110 Glucose [Mass/Vol] 183 mg/dL High 55-99 [facility] Comment on above: Performed By: #### 2 [id number] #### [facility] [address] [place] [address] Glucose [Mass/Vol] 155 mg/dL High 55-99 [facility] Comment on above: Performed By: #### 2 [id number] #### [facility] [address] [place] [address] Glucose [Mass/Vol] 113 mg/dL High 55-99 [facility] Comment on above: Result Comment: Monty pelayo RN/ Performed By: #### 2 [id number] ####[facility] [address] [place] [address] Glucose [Mass/Vol] 112 mg/dL High 55-99 [facility] Comment on above: Performed By: #### 2 [id number] #### [facility] [address] [place] [address] Glucose [Mass/Vol] 85 mg/dL Normal 55-99 [facility] Comment on above: Result Comment: Monty MEDEIROS Performed By: #### 2 [id number] #### [facility] [address] [place] [address] Glucose [Mass/Vol] 59 mg/dL Normal 55-99 [facility] Comment on above: Result Comment: Monty MEDEIROS Performed By: #### 2 [id number] #### [facility] [address] [place] [address] Consultation Noteon 05-03-20 Consultation Note HOSPITAL REGULATIONS: [...] left knee and elevate. Eh Carter DO [facility] Dictated: 05/02/2020 #[id number] Typed: 05/02/2020 #[id number] cc: DO David Nieto D.O. [facility] Comment on above: Result Comment: Elec tronically Signed By: Eh Carter DO\.br\Date and Time Signed: 05/03/20 10:27 EST Monitor Recordon 05-03-2020 Monitor Record [id number] 1#1.00CD:127 [facility] Monitor Record [id number] 6#1.00CD:127 [facility] Operative Reporton 0 Operative Report Date [...] The patient's condition satisfactory David Talamantes D.O. [facility] Dictated: 05/01/2020 #[id number] Typed: 05/01/2020 #[id number] cc: Randa Lanier D.O. 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 [...] PRN L (more content not included)... [facility] Comment on above: Result Comment: Elec tronically Signed By: Eleuterio VIGIL, John Olson\.br\Date and Time Signed: 05/03/20 07:45 EST Capillary Glucose POCon 10-3 Glucose [Mass/Vol] 212 mg/dL High 55-99 [facility] Comment on above: Performed By: #### 2 [id number] #### [facility] [address] [place] [address] Glucose [Mass/Vol] 138 mg/dL High 55-99 [facility] Comment on above: Performed By: #### 2 [id number] #### [facility] [address] [place] [address] Glucose [Mass/Vol] 139 mg/dL High 55-99 [facility] Comment on above: Performed By: #### 2 [id number] #### [facility] [address] [place] [address] Glucose [Mass/Vol] 105 mg/dL High 55-99 [facility] Comment on above: Performed By: #### 2 [id number] #### [facility] [address] [place] [address] Glucose [Mass/Vol] 233 mg/dL High 55-99 [facility] Comment on above: Result Comment: Monty pelayo RN/ Performed By: #### 2 [id number] ####[facility] [address] [place] [address] Lipid Panelon 05-02-2020 Cholesterol [Mass/Vol] 160 mg/dL Normal 120-200 [facility] Comment on above: Performed By: #### 2 [id number] #### [facility] [address] [place] [address] Cholesterol in HDL [Mass/Vol] 49 mg/dL Invalid Interpretation Code [facility] Comment on above: Result Comment: HDL > or equal to 60 mg/dL: Low cardiovascular risk HDL < 40 mg/dL : High cardiovascular risk Performed By: #### 2 [id number] #### [facility] [address] [place] [address] Cholesterol in LDL [Mass/Vol] 98 mg/dL Normal <=129 [facility] Comment on above: Performed By: #### 2 [id number] #### [facility] [address] [place] [address] Cholesterol in VLDL [Mass/Vol] 12 mg/dL Normal 7-40 [facility] Comment on above: Performed By: #### 2 [id number] #### [facility] [address] [place] [address] Triglyceride [Mass/Vol] 61 mg/dL Normal <=149 F [facility] Comment on above: Performed By: #### 2 [id number] #### [facility] [address] [place] [address] Monitor Recordon 05-02-2020 Monitor Record [id number] 2#1.00CD:127 Normal [facility] Progress Note-Physicianon Progress Note-Physician Assessment/Plan 1. [...] (05/01/20 18:27:00) (more content not included)... Normal [facility] Comment on above: Result Comment: Elec tronically Signed By: JUN VIGIL, Nhung\.br\Date and Time Signed: 05/02/20 10:00 EDT Troponin 3 Hr.on 05-02-2020 Troponin I.cardiac [Mass/Vol] 3.60 pg/mL Low 10.10-27.10 [facility] Comment on above: Result Comment: The 95% CI (Confidence Interval) PPV (Positive Predictive Value) for myocardial infarction in females is 38 pg/mL, in males 51 pg/mL. The results should be used in conjunction with clinical conditions of myocardial infarction. (Access High Sensitivity Troponin I Instructions For Use, [employer], January 2018) Performed By: #### 2 [id number] #### [facility] [address] [place] [address] Troponin 6 Hr.on 05-02-2020 Troponin I.cardiac [Mass/Vol] 3.90 pg/mL Low 10.10-27.10 [facility] Comment on above: Result Comment: The 95% CI (Confidence Interval) PPV (Positive Predictive Value) for myocardial infarction in females is 38 pg/mL, in males 51 pg/mL. The results should be used in conjunction with clinical conditions of myocardial infarction. (Access High Sensitivity Troponin I Instructions For Use, [employer], January 2018) Performed By: #### 2 [id number] #### [facility] [address] [place] [address] Troponin 9 Hr.on 05-02-2020 Troponin I.cardiac [Mass/Vol] 5.10 pg/mL Low 10.10-27.10 [facility] Comment on above: Result Comment: The 95% CI (Confidence Interval) PPV (Positive Predictive Value) for myocardial infarction in females is 38 pg/mL, in males 51 pg/mL. The results should be used in conjunction with clinical conditions of myocardial infarction. (Access High Sensitivity Troponin I Instructions For Use, [employer]January 2018) Performed By: #### 2 [id number] #### [facility] [address] [place] [address] US Carotid Duplex Bilateralo n 05-02-2020 US [...] ECA (cm/sec): 199/15 Vert. Antegrade Yes Normal [facility] Auto Diffon 05-01-2020 Basophils/100 WBC (Bld) 0.4 % Normal 0.0-2.0 F [facility] Comment on above: Order Comment: Order Added by Discern Expert. Performed By: #### 2 198010, 47149302, 7933643, 4536703 #### [facility] [address] [place] [address] Basophils/Leukocytes Auto (Bld) [Pure # fraction] 0.0 E9/L Normal 0.0-0.2 [facility] Comment on above: Order Comment: Order Added by Discern Expert. Performed By: #### 2 832490, 11506355, 9028293, 1638000 #### [facility] [address] [place] [address] Eosinophils/100 WBC (Bld) 1.2 % Normal 0.0-8.0 [facility] Comment on above: Order Comment: Order Added by Discern Expert. Performed By: #### 2 780210, 85286602, 8170423, 8457103 #### [facility] [address] [place] [address] Eosinophils/Leukocytes Auto (Bld) [Pure # fraction] 0.1 E9/L Normal 0.0-0.5 [facility] Comment on above: Order Comment: Order Added by Discern Expert. Performed By: #### 2 838905, 82229893, 1864927, 6401751 #### [facility] [address] [place] [address] Lymphocytes/100 WBC (Bld) 9.7 % Low 14.0-50.0 [facility] Comment on above: Order Comment: Order Added by Discern Expert. Performed By: #### 2 850268, 36963483, 2966761, 0498867 #### [facility] [address] [place] [address] Lymphocytes/Leukocytes Auto (Bld) [Pure # fraction] 1.0 E9/L Normal 1.0-4.0 [facility] Comment on above: Order Comment: Order Added by Discern Expert. Performed By: #### 2 451668, 99057636, 1175822, 7921855 #### [facility] [address] [place] [address] Monocytes/100 WBC (Bld) 4.2 % Normal 4.0-14.0 [facility] Comment on above: Order Comment: Order Added by Discern Expert. Performed By: #### 2 144216, 04858551, 0722492, 8126130 #### [facility] [address] [place] [address] Monocytes/Leukocytes Auto (Bld) [Pure # fraction] 0.4 E9/L Normal 0.2-1.0 [facility] Comment on above: Order Comment: Order Added by Discern Expert. Performed By: #### 2 889048, 78053498, 6189031, 1559464 #### [facility] [address] [place] [address] Neutrophils/100 WBC (Bld) 84.5 % High 36.0-75.0 [facility] Comment on above: Order Comment: Order Added by Discern Expert. Performed By: #### 2 869238, 20103968, 3971766, 3047562 #### [facility] [address] [place] [address] Neutrophils/Leukocytes Auto (Bld) [Pure # fraction] 8.9 E9/L High 2.0-7.5 [facility] Comment on above: Order Comment: Order Added by Son Expert. Performed By: #### 2 525441, 38544857, 1658729, 6906953 #### [facility] [address] [place] [address] BMPon 05-01-2020 Calcium [Mass/Vol] 8.9 mg/dL Normal 8.9-11.1 [facility] Comment on above: Performed By: #### 2 036181, 86198508, 1480704, 0107947 #### [facility] [address] [place] [address] Anion gap [Moles/Vol] 10 mmol/L Normal 6-16 [facility] Comment on above: Performed By: #### 2 546900, 93659604, 2087202, 1658320 #### [facility] [address] [place] [address] Chloride [Moles/Vol] 103 mmol/L Normal 101-111 [facility] Comment on above: Performed By: #### 2 981006, 03694158, 8431915, 0199355 #### [facility] [address] [place] [address] CO2 [Moles/Vol] 24 mmol/L Normal 21-31 [facility] Comment on above: Performed By: #### 2 862066, 73636768, 4312885, 8521057 #### [facility] [address] [place] [address] Creatinine [Mass/Vol] 1.6 mg/dL High 0.5-1.3 [facility] Comment on above: Performed By: #### 2 094677, 95554392, 5583417, 5997436 #### [facility] [address] [place] [address] Glucose [Mass/Vol] 167 mg/dL Normal 55-199 [facility] Comment on above: Result Comment: If t his glucose result represents a fasting glucose, interpretation should refer to the following reference range: 55-99 mg/dL Performed By: #### 2 967618, 68877704, 4126904, 3425312 #### [facility] [address] [place] [address] Potassium [Moles/Vol] 3.9 mmol/L Normal 3.5-5.3 [facility] Comment on above: Performed By: #### 2 490885, 11942743, 5793957, 3821112 #### [facility] [address] [place] [address] Sodium [Moles/Vol] 133 mmol/L Low 135-145 [facility] Comment on above: Performed By: #### 2 104666, 74901972, 0163960, 6163301 #### [facility] [address] [place] [address] Urea nitrogen [Mass/Vol] 34 mg/dL High 5-21 [facility] Comment on above: Performed By: #### 2 749271, 81871287, 6675399, 1271312 #### [facility] [address] [place] [address] Urea nitrogen/Creatinine [Mass ratio] 21 No Units High 10-20 [facility] Comment on above: Performed By: #### 2 994907, 38645633, 0412038, 6713461 #### [facility] [address] [place] [address] CBC w/ Auto Diffon 05-01-202 0 Erythrocyte distribution width (RBC) [Ratio] 13.0 % Normal 10.9-14.2 [facility] Comment on above: Performed By: #### 2 413352, 86760643, 8581943, 5036468 #### [facility] [address] [place] [address] Hematocrit (Bld) [Volume fraction] 32.4 % Low 34.0-46.0 [facility] Comment on above: Performed By: #### 2 732248, 97363116, 0110786, 2110240 #### [facility] [address] [place] [address] Hemoglobin (Bld) [Mass/Vol] 11.2 g/dL Low 12.0-16.0 [facility] Comment on above: Performed By: #### 2 913624, 98024093, 1328252, 6582656 #### [facility] [address] [place] [address] MCH (RBC) [Entitic mass] 29.6 pg Normal 27.0-34.0 [facility] Comment on above: Performed By: #### 2 993238, 75695550, 4051408, 6515047 #### [facility] [address] [place] [address] MCHC (RBC) [Mass/Vol] 34.6 g/dL Normal 31.4-36.0 [facility] Comment on above: Performed By: #### 2 892430, 97688578, 3471229, 4767218 #### [facility] [address] [place] [address] MCV (RBC) [Entitic vol] 85.5 fL Normal 80.0-100.0 F [facility] Comment on above: Performed By: #### 2 998255, 50960907, 7171784, 0597676 #### [facility] [address] [place] [address] Platelet mean volume (Bld) [Entitic vol] 8.4 fL Normal 6.4-10.8 [facility] Comment on above: Performed By: #### 2 725555, 94586972, 5713333, 0896954 #### [facility] [address] [place] [address] Platelets (Bld) [#/Vol] 242.0 E9/L Normal 150.0-500.0 [facility] Comment on above: Performed By: #### 2 227102, 56617780, 4011007, 7476456 #### [facility] [address] [place] [address] RBC (Bld) [#/Vol] 3.8 E12/L Low 4.3-5.9 [facility] Comment on above: Performed By: #### 2 712938, 82046139, 3618367, 6261416 #### [facility] [address] [place] [address] WBC corrected for nucl RBC Auto (Bld) [#/Vol] 10.5 E9/L Normal 4.0-11.0 [facility] Comment on above: Performed By: #### 2 605958, 59791018, 1891520, 4129037 #### [facility] [address] [place] [address] Capillary Glucose POCon 04-04 Glucose [Mass/Vol] 84 mg/dL Normal 55-99 [facility] Comment on above: Result Comment: Repe at Test Performed By: #### 2 47398783 #### [facility] [address] [place] [address] Glucose [Mass/Vol] 88 mg/dL Normal 55-99 [facility] Comment on above: Result Comment: Repe at Test Performed By: #### 2 [id number] #### [facility] [address] [place] [address] Coding Summary.on 05-01-2020 Coding Summary. CODING DATE: 05/01/2020 FINAL [facility] STATUS: Home (Routine DC) PAYOR: Medicare [...] CphT Date Saved: 05/01/2020 08:36 am Normal [facility] Coding Summary. CODING DATE: 04/25/2020 FINAL [facility] STATUS: Home (Routine DC) PAYOR: Medicare [...] [place] CphT Date Saved: 04/25/2020 04:17 pm [facility] Consent for Treatmenton 04-04 Consent for Treatment [id number] #1.00CD:127 [facility] Consent for Treatment [id number] #1.00CD:127 [facility] H&P Updateon 05-01-2020 H&P Update [id number] #1.00CD:127 [facility] Main OR PACU I Recordon 04-04 Main OR PACU I Record PACU Phase I Document Type FT Summary Primary Physician: David Talamantes DO Finalized Date/Time: 05/01/20 18:04:55 Pt. Name: CLAUDIA ESTRELLA/Sex: 1950 Female Med Rec #: [id number] Physician: David Talamantes DO Financial #: [id number] Pt. Type: A Room/Bed: [place] [address] Admit/Disch: 05/01/20 11:43:14 - Institution: Case Times [...] By: Ju Bates RN 05/01/20 18:04 Normal [facility] Main OR PACU II Recordon Main OR PACU II Record PACU Phase II Document Type FT Summary Primary Physician: David Talamantes DO Finalized Date/Time: 05/01/20 20:09:08 Pt. Name: CLAUDIA ESTRELLA/Sex: 1950 Female Med Rec #: [id number] Physician: David Talamantes DO Financial #: [id number] Pt. Type: O Room/Bed: [place] [address] Admit/Disch: 05/01/20 11:43:14 - Institution: Case Times [...] Signed By: Yessy Curran RN 05/01/20 20:09 [facility] Main OR Preoperative Recordo n 05-01-2020 Main OR Preoperative Record PreOp Document Type FT Summary Primary Physician: David Talamantes DO Finalized Date/Time: 05/01/20 14:45:06 Pt. Name: CLAUDIA ESTRELLA James/Sex: 1950 Female Med Rec #: [id number] Physician: David Talamantes DO Financial #: [id number] Pt. Type: A Room/Bed: [place] [address] Admit/Disch: 05/01/20 11:43:14 - Institution: Case Times [...] By: Viky Hernández RN 05/01/20 14:45 Normal [facility] Monitor Recordon 05-01-2020 Monitor Record [id number] 0#1.00CD:127 Normal [facility] Monitor Record [id number] 8#1.00CD:127 Normal [facility] Outside Radiologyon 05-01-20 20 Outside Radiology [id number] #1.00CD:127 Normal [facility] Outside Recordson 05-01-2020 Outside Records [id number] #1.00CD:127 Normal [facility] Progress Note-Nurseon 2019 Progress Note-Nurse At 1653--Gisela poct stated she needed a nurse in bay 12 stat. This nurse arrived to room. Patient stated she has CP 04/11 midsternal, heaviness. Jhoana RN at bedside as well. Vitals obtained. Dr. Luis Carlos zacarias stat. 1654--1 dose 0.4 mg Nitro given sublingual. Bp 130/73 95% 2l NC 165--Patient states CP is down 3/10, heaviness. Patient [...] voicemail. 1834--This nurse spoke with Dr. Carter (sewing techniques demonstrator physician), informed Dr. Carter reason for admission and patient's room number. Dr. Aldridge at bedside at 170--Physician looked at patient EKG strip that was printed. Normal [facility] Progress Note-Nurse 1528: pt. medicated with [...] dtr. also at bedside and updated. Normal [facility] Troponin 0 Hr.on 05-01-2020 Troponin I.cardiac [Mass/Vol] 4.10 pg/mL Low 10.10-27.10 [facility] Comment on above: Result Comment: The 95% CI (Confidence Interval) PPV (Positive Predictive Value) for myocardial infarction in females is 38 pg/mL, in males 51 pg/mL. The results should be used in conjunction with clinical conditions of myocardial infarction. (Access High Sensitivity Troponin I Instructions For Use, [employer], January 2018) Performed By: #### 2 [id number] #### [facility] [address] [place] [address] eGFRon 05-01-2020 GFR/1.73 sq M.predicted among blacks MDRD (S/P/Bld) [Vol rate/Area] 39 mL/min/1.73 m2 Low >=59 [facility] Comment on above: Order Comment: Order added by Discern Expert. Result Comment: eGFR is race adjusted. AA=. Performed By: #### 2 407598, 96236286, 9215943, 1563459 #### [facility] [address] [place] [address] GFR/1.73 sq M.predicted among non-blacks MDRD (S/P/Bld) [Vol rate/Area] 32 mL/min/1.73 m2 Low >=59 [facility] Comment on above: Order Comment: Order added by Discern Expert. Result Comment: Shuttle Repairer jayden kidney disease could be indicated at eGFR's of less than 60 mL/min/1.73m2. Kidney failure is indicated at less than 15 mL/min/1.73m2. Performed By: #### 2 160739, 33999964, 7764413, 6666253 #### [facility] [address] [place] [address] Coding Summary.on 04-28-2020 Coding Summary. CODING DATE: 04/28/2020 FINAL [facility] STATUS: Home (Routine DC) PAYOR: Medicare [...] CphT Date Saved: 04/28/2020 09:19 am Normal [facility] Outpatient Surgery Discharge Instructionon 04-28-2020 Outpatient Surgery Discharge Instruction [address] [address] Patient Discharge Instructions PERSON INFORMATION [...] Follow up: With: Address: When: David Talamantes [address] [place], [place] [address] [facility] () Comments: Keep scheduled appointment Type Location Start [facility] Surgery [facility] Services 05/01/2020 2:15 PM 05/01/2020 2:55 PM Confirmed Pharmacy Information: Thank you for choosing [facility] HERE ARE THE MEDICATION CHANGES THAT [...] tab Oral Daily. PATIENT EDUCATION INFORMATION Instructions: [place], [place] [facility] DISCHARGE INSTRUCTIONS: KNEE ARTHROSCOPY [...] result of (more content not included)... Normal [facility] Consent for Procedure/Surger yon 04-27-2020 Consent for Procedure/Surgery [id number] 5#1.00CD:127 Normal [facility] Outside Recordson 04-27-2020 Outside Records [id number] 9#1.00CD:127 Normal [facility] Priority Order-Trina 2019 Priority Order-STAT Comment Invalid Interpretation Code [facility] Comment on above: Result Comment: Rece ived Performed at: [facility] [address] [facility] [place] [id number] MD Bladimir Briones Performed By: #### 2 [id number] #### [facility] [address] [place] [address] SARS-CoV-2, NAAon 04-25-2020 SARS-CoV-2 (COVID-19) RNA JAYASHREE+probe Ql (Resp) Not detected Invalid Interpretation Code Not Detected [facility] Comment on above: Result Comment: This nucleic acid amplification test was developed and its performance characteristics determined by [employer]. Nucleic acid amplification tests include PCR and [...] detected) result in this assay. Performed at: [facility] [address] [facility] [place] [id number] MD Bladimir Briones Performed By: #### 2 [id number] #### [facility] [address] [place] [address] XR Chest 2 Viewson 0 XR Chest [...] Matias George M.D. Transcribed by: LUDIN Technologist: RRHeather Normal [facility] BUNon 04-24-2020 Urea nitrogen [Mass/Vol] 36 mg/dL High 5-21 [facility] Comment on above: Performed By: #### 1 0042139, 9715174, 2954296, 9965434, 0759812, 9811572 ####[facility] [address] [place] [address] CBC w/Indiceson 04-24-2020 Erythrocyte distribution width (RBC) [Ratio] 13.0 % Normal 10.9-14.2 [facility] Comment on above: Performed By: #### 1 0750058, 5628998, 5933209, 6355524, 4752349, 8068808 ####[facility] [address] [place] [address] Hematocrit (Bld) [Volume fraction] 34.1 % Normal 34.0-46.0 [facility] Comment on above: Performed By: #### 1 4459006, 9769185, 1840747, 8921787, 3395372, 7875435 ####[facility] [address] [place] [address] Hemoglobin (Bld) [Mass/Vol] 11.6 g/dL Low 12.0-16.0 [facility] Comment on above: Performed By: #### 1 8959140, 1280351, 1884441, 4823511, 5410694, 1025074 ####[facility] [address] [place] [address] MCH (RBC) [Entitic mass] 29.5 pg Normal 27.0-34.0 [facility] Comment on above: Performed By: #### 1 4097515, 0928597, 3951675, 2067553, 3640526, 3753855 ####[place] [address] MCHC (RBC) [Mass/Vol] 34.1 g/dL Normal 31.4-36.0 [facility] Comment on above: Performed By: #### 1 4710888, 1330260, 0062248, 3759911, 1882901, 8878181 ####[address] [address] MCV (RBC) [Entitic vol] 86.5 fL Normal 80.0-100.0 F [facility] Comment on above: Performed By: #### 1 7138472, 8956490, 8853746, 3731696, 0949829, 7818851 ####[facility] [address] [place] [address] Platelet mean volume (Bld) [Entitic vol] 9.4 fL Normal 6.4-10.8 [facility] Comment on above: Performed By: #### 1 3194832, 9678092, 4632962, 8168925, 1804268, 0457796 ####[address] [address] Platelets (Bld) [#/Vol] 246.0 E9/L Normal 150.0-500.0 [facility] Comment on above: Performed By: #### 1 0159855, 5130894, 0186139, 3003831, 6582328, 8771154 ####[facility] [address] [place] [address] RBC (Bld) [#/Vol] 3.9 E12/L Low 4.3-5.9 [facility] Comment on above: Performed By: #### 1 9992125, 8342789, 0289953, 4789220, 9600362, 1278449 ####[facility] [address] [place] [address] WBC corrected for nucl RBC Auto (Bld) [#/Vol] 10.0 E9/L Normal 4.0-11.0 [facility] Comment on above: Performed By: #### 1 5628061, 7657518, 7045117, 3911509, 5005970, 8100705 ####[facility] [address] [place] [address] Consent for Treatmenton 04-03 Consent for Treatment [id number] #1.00CD:127 Normal [facility] Creatinineon 04-24-2020 Creatinine [Mass/Vol] 1.6 mg/dL High 0.5-1.3 [facility] Comment on above: Performed By: #### 1 3495076, 0765102, 9835082, 4959724, 2117128, 9083169 ####[facility] [address] [place] [address] Glu Fastingon 04-24-2020 Glucose [Mass/Vol] 81 mg/dL Normal 55-99 [facility] Comment on above: Performed By: #### 1 6825013, 1413351, 4813051, 1089239, 0687945, 7996205 ####[facility] [address] [place] [address] Lyteson 04-24-2020 Anion gap [Moles/Vol] 13 mmol/L Normal 6-16 [facility] Comment on above: Performed By: #### 1 8309845, 9790008, 1968772, 8421858, 9060270, 5853168 ####[facility] [address] [place] [address] Chloride [Moles/Vol] 103 mmol/L Normal 101-111 [facility] Comment on above: Performed By: #### 1 4723532, 6118292, 6716591, 5538197, 5123208, 7938615 ####[facility] [address] [place] [address] CO2 [Moles/Vol] 26 mmol/L Normal 21-31 [facility] Comment on above: Performed By: #### 1 0541931, 2043229, 5894427, 4546876, 6504955, 9001338 ####[facility] [address] [place] [address] Potassium [Moles/Vol] 3.9 mmol/L Normal 3.5-5.3 [facility] Comment on above: Performed By: #### 1 2520653, 3464835, 4166328, 3382531, 0441554, 4199180 ####[facility] [address] [facility] [place] [address] Sodium [Moles/Vol] 138 mmol/L Normal 135-145 [facility] Comment on above: Performed By: #### 1 0617134, 8982472, 6380814, 5247749, 1461235, 2953063 ####[facility] [address] [facility] [place] [address] Physician Orderon 04-24-2020 Physician Order [id number] 3#1.00CD:127 Normal [facility] eGFRon 04-24-2020 GFR/1.73 sq M.predicted among blacks MDRD (S/P/Bld) [Vol rate/Area] 39 mL/min/1.73 m2 Low >=59 [facility] Comment on above: Order Comment: Order added by Discern Expert. Result Comment: eGFR is race adjusted. AA=. Performed By: #### 1 8703011, 8551759, 2210574, 5665165, 5884279, 0952476 ####[facility] [address] [place] [address] GFR/1.73 sq M.predicted among non-blacks MDRD (S/P/Bld) [Vol rate/Area] 32 mL/min/1.73 m2 Low >=59 [facility] Comment on above: Order Comment: Order added by Discern Expert. Result Comment: Shuttle Repairer jayden kidney disease could be indicated at eGFR's of less than 60 mL/min/1.73m2. Kidney failure is indicated at less than 15 mL/min/1.73m2. Performed By: #### 1 4152778, 7074871, 5977818, 7095730, 1875958, 2363647 ####[facility] [address] [place] [address] Physician Orderon 04-13-2020 Physician Order [id number] 5#1.00CD:127 Normal [facility] Physician Orderon 04-10-2020 Physician Order [id number] 3#1.00CD:127 Normal [facility] Vital Signs Date Time Vital Sign Value Performing Clinician Facility 09-03-2024 15:36-0500 Body height 147.32 cm [facility] 09-03-2024 15:36-0500 Body mass index (BMI) [Ratio] 25.6 kg/m2 [place] 09-03-2024 15:36-0500 Body temperature 99.3 [degF] [facility] 09-03-2024 15:36-0500 Body weight 55.56 kg [facility] 09-03-2024 15:36-0500 Diastolic blood pressure 66 mm[Hg] [place] 09-03-2024 15:36-0500 Heart rate 73 /min [facility] 09-03-2024 15:36-0500 Respiratory rate 18 /min [facility] 09-03-2024 15:36-0500 SaO2% (BldA) [Mass fraction] 95 % [place] 09-03-2024 15:36-0500 Systolic blood pressure 149 mm[Hg] [place] 05-13-2024 15:30-0500 Body height 147.32 cm [facility] 05-13-2024 15:30-0500 Body mass index (BMI) [Ratio] 27.1 kg/m2 [place] 05-13-2024 15:30-0500 Body temperature 97.5 [degF] [facility] 05-13-2024 15:30-0500 Body weight 58.96 kg [facility] 05-13-2024 15:30-0500 Diastolic blood pressure 74 mm[Hg] [place] 05-13-2024 15:30-0500 Heart rate 72 /min [facility] 05-13-2024 15:30-0500 Respiratory rate 16 /min [facility] 05-13-2024 15:30-0500 SaO2% (BldA) [Mass fraction] 95 % [place] 05-13-2024 15:30-0500 Systolic blood pressure 122 mm[Hg] [place] 01-08-2024 13:03-0400 Body height 147.32 cm [facility] 01-08-2024 13:03-0400 Body mass index (BMI) [Ratio] 26.1 kg/m2 [place] 01-08-2024 13:03-0400 Body temperature 98.6 [degF] [facility] 01-08-2024 13:03-0400 Body weight 56.75 kg [facility] 01-08-2024 13:03-0400 Diastolic blood pressure 62 mm[Hg] [place] 01-08-2024 13:03-0400 Heart rate 69 /min [facility] 01-08-2024 13:03-0400 Respiratory rate 16 /min [facility] 01-08-2024 13:03-0400 SaO2% (BldA) [Mass fraction] 96 % [place] 01-08-2024 13:03-0400 Systolic blood pressure 144 mm[Hg] [place] 09-25-2023 15:52-0400 Body weight 58.74 kg [facility] 09-25-2023 15:52-0400 Diastolic blood pressure 60 mm[Hg] [place] 09-25-2023 15:52-0400 Heart rate 65 /min [facility] 09-25-2023 15:52-0400 Systolic blood pressure 110 mm[Hg] [place] 05-30-2023 15:40-0500 Body height 147.32 cm [facility] Other 05-30-2023 15:40-0500 Body mass index (BMI) [Ratio] 26.92 kg/m2 [facility] Other 05-30-2023 15:40-0500 Body temperature 97 [degF] [facility] Other 05-30-2023 15:40-0500 Body weight 58.42 kg Geneva Mary Grace Other [facility] Other 05-30-2023 15:40-0500 Diastolic blood pressure 71 mm[Hg] Geneva Mary Grace Other [facility] Other 05-30-2023 15:40-0500 Respiratory rate 18 /min Geneva Mary Grace Other [facility] Other 05-30-2023 15:40-0500 SaO2% (BldA) [Mass fraction] 97 % Geneva Mary Grace Other [facility] Other 05-30-2023 15:40-0500 Systolic blood pressure 153 mm[Hg] Geneva Mary Grace Other [facility] Other 01-30-2023 15:40-0400 Body height 147.32 cm Geneva Mary Grace Other [facility] Other 01-30-2023 15:40-0400 Body mass index (BMI) [Ratio] 26.83 kg/m2 Geneva Mary Grace Other [facility] Other 01-30-2023 15:40-0400 Body temperature 97.7 [degF] Geneva Mary Grace Other [facility] Other 01-30-2023 15:40-0400 Body weight 58.24 kg Geneva Mary Grace Other [facility] Other 01-30-2023 15:40-0400 Diastolic blood pressure 67 mm[Hg] Geneva Mary Grace Other [facility] Other 01-30-2023 15:40-0400 Respiratory rate 18 /min Geneva Mary Grace Other [facility] Other 01-30-2023 15:40-0400 SaO2% (BldA) [Mass fraction] 98 % Geneva Mary Grace Other [facility] Other 01-30-2023 15:40-0400 Systolic blood pressure 136 mm[Hg] Geneva Mary Grace Other [facility] Other 08-30-2022 14:40-0500 Body height 147.32 cm Geneva Mary Grace Other [facility] Other 08-30-2022 14:40-0500 Body mass index (BMI) [Ratio] 26.29 kg/m2 Geneva Mary Grace Other [facility] Other 08-30-2022 14:40-0500 Body temperature 98.6 [degF] Geneva Mary Grace Other [facility] Other 08-30-2022 14:40-0500 Body weight 57.06 kg Geneva Mary Grace Other [facility] Other 08-30-2022 14:40-0500 Diastolic blood pressure 72 mm[Hg] Geneva Mary Grace Other [facility] Other 08-30-2022 14:40-0500 Respiratory rate 18 /min Geneva Mary Grace Other [facility] Other 08-30-2022 14:40-0500 SaO2% (BldA) [Mass fraction] 96 % Geneva Mary Grace Other [facility] Other 08-30-2022 14:40-0500 Systolic blood pressure 139 mm[Hg] Geneva Mary Grace Other [facility] Other 05-30-2022 11:40-0500 Body height 147.32 cm Geneva Mary Grace Other [facility] Other 05-30-2022 11:40-0500 Body mass index (BMI) [Ratio] 27.25 kg/m2 Geneva Mary Grace Other [facility] Other 05-30-2022 11:40-0500 Body temperature 96.2 [degF] Geneva Mary Grace Other [facility] Other 05-30-2022 11:40-0500 Body weight 59.15 kg Geneva Mary Grace Other [facility] Other 05-30-2022 11:40-0500 Diastolic blood pressure 71 mm[Hg] Geneva Mary Grace Other [facility] Other 05-30-2022 11:40-0500 SaO2% (BldA) [Mass fraction] 97 % Geneva Mary Grace Other [facility] Other 05-30-2022 11:40-0500 Systolic blood pressure 151 mm[Hg] Geneva Mary Grace Other [facility] Other 01-27-2022 12:20-0400 Body height 147.32 cm Geneva Mary Grace Other [facility] Other 01-27-2022 12:20-0400 Body mass index (BMI) [Ratio] 26.83 kg/m2 Geneva Mary Grace Other [facility] Other 01-27-2022 12:20-0400 Body temperature 98 [degF] Geneva Mary Grace Other [facility] Other 01-27-2022 12:20-0400 Body weight 58.24 kg Geneva Mary Grace Other [facility] Other 01-27-2022 12:20-0400 Diastolic blood pressure 69 mm[Hg] Geneva Mary Grace Other [facility] Other 01-27-2022 12:20-0400 Respiratory rate 18 /min Geneva Mary Grace Other [facility] Other 01-27-2022 12:20-0400 SaO2% (BldA) [Mass fraction] 96 % Geneva Mary Grace Other [facility] Other 01-27-2022 12:20-0400 Systolic blood pressure 136 mm[Hg] Geneva Mary Grace Other [facility] Other 09-20-2021 16:00-0400 Body height 147.32 cm Geneva Mary Grace Other [facility] Other 09-20-2021 16:00-0400 Body mass index (BMI) [Ratio] 27.42 kg/m2 Geneva Mary Grace Other [facility] Other 09-20-2021 16:00-0400 Body temperature 97.6 [degF] Geneva Mary Grace Other [facility] Other 09-20-2021 16:00-0400 Body weight 59.51 kg Geneva Mary Grace Other [facility] Other 09-20-2021 16:00-0400 Diastolic blood pressure 76 mm[Hg] Geneva Mary Grace Other [facility] Other 09-20-2021 16:00-0400 Respiratory rate 18 /min Geneva Mary Grace Other [facility] Other 09-20-2021 16:00-0400 SaO2% (BldA) [Mass fraction] 97 % Geneva Mary Grace Other [facility] Other 09-20-2021 16:00-0400 Systolic blood pressure 169 mm[Hg] Geneva Mary Grace Other [facility] Other 05-18-2021 15:40-0500 Body height 147.32 cm Geneva Mary Grace Other [facility] Other 05-18-2021 15:40-0500 Body mass index (BMI) [Ratio] 26.5 kg/m2 Geneva Mary Grace Other [facility] Other 05-18-2021 15:40-0500 Body temperature 97.2 [degF] Geneva Mary Grace Other [facility] Other 05-18-2021 15:40-0500 Body weight 57.52 kg Geneva Mary Grace Other [facility] Other 05-18-2021 15:40-0500 Diastolic blood pressure 79 mm[Hg] Geneva Mary Grace Other [facility] Other 05-18-2021 15:40-0500 Respiratory rate 18 /min Geneva Mary Grace Other [facility] Other 05-18-2021 15:40-0500 SaO2% (BldA) [Mass fraction] 97 % Geneva Mary Grace Other [facility] Other 05-18-2021 15:40-0500 Systolic blood pressure 137 mm[Hg] Geneva Mary Grace Other [facility] Other Encounters Encounter Date Encounter Type Care Provider Facility Start: 09-16-2024 End: 09-16-[address] [facility] Start: 09-03-2024 End: 09-03-2024 ambulatory [facility] Work Phone: Start: 09-03-2024 End: 09-03-2024 Patient encounter procedure [facility] Work Phone: Start: 08-26-2024 Non-patient / Non-visit [facility] Work Phone: Start: 05-15-2024 End: 05-15-2024 Bamboo flowsheet Mirta Teran DO Work Phone: [facility] Start: 05-15-2024 End: 05-15-2024 Bamboo flowsheet Mirta Teran DO Work Phone: [facility] Start: 05-15-2024 End: 05-15-2024 ambulatory MIRTA TERAN Not Available Start: 05-13-2024 End: 05-13-2024 ambulatory [facility] Work Phone: Start: 05-13-2024 End: 05-13-2024 Patient encounter procedure [facility] [place]and[place] Work Phone: Start: 05-09-2024 Non-patient / Non-visit [facility] Work Phone: Start: 03-29-2024 End: 03-29-2024 ambulatory [facility] Start: 01-08-2024 End: 01-08-2024 ambulatory [facility] Work Phone: Start: 01-08-2024 End: 01-08-2024 Patient encounter procedure [facility] Work Phone: Start: 01-01-2024 Non-patient / Non-visit [facility] Work Phone: Start: 11-07-2023 End: 11-07-2023 ambulatory MIRTA GRIERMEEK Not Available Start: 09-27-2023 End: 09-27-2023 ambulatory SHEYLA LOVE Not Available Start: 09-25-2023 End: 09-25-2023 ambulatory [facility] Work Phone: Start: 09-25-2023 End: 09-25-2023 Patient encounter procedure [facility] Work Phone: Start: 08-08-2023 End: 08-08-2023 ambulatory Geneva Mary Grace Other [facility] Other Start: 08-08-2023 Telephone encounter Geneva Mary Grace [facility] Start: 07-11-2023 End: 07-11-2023 ambulatory Geneva Mary Grace Other [facility] Other Start: 07-11-2023 Telephone encounter Geneva Mary Grace [facility] Start: 05-30-2023 End: 05-30-2023 ambulatory Geneva Mary Grace Other [facility] Other Start: 05-30-2023 Office outpatient visit 25 minutes Geneva Mary Grace [facility] Start: 05-23-2023 End: 05-23-2023 ambulatory Geneva Mary Grace Other [facility] Other Start: 05-23-2023 Telephone encounter Geneva Mary Grace [facility] Start: 01-30-2023 End: 01-30-2023 ambulatory Geneva Mary Grace Other [facility] Other Start: 01-30-2023 Encounter by jose parrish Geneva Mary Grace [facility] Start: 01-30-2023 Office outpatient visit 25 minutes Geneva Mary Grace [facility] Start: 10-27-2022 End: 10-27-2022 ambulatory Geneva Mary Grace Other [facility] Other Start: 10-27-2022 Telephone encounter Geneva Mary Grace [facility] Start: 10-26-2022 End: 10-27-[address] JOHN PERDOMO Facility:[facility] Start: 08-30-2022 End: 08-30-2022 ambulatory Geneva Mary Grace Other [facility] Other Start: 08-30-2022 Office outpatient visit 25 [...] End: 05-30-2022 ambulatory Geneva Mary Grace Other [facility] Other Start: 05-30-2022 Office outpatient visit 25 minutes Geneva Mary Grace [facility] Start: 05-27-2022 End: 05-28-[address] JOHN PERDOMO Facility:[facility] Start: 05-23-2022 Telephone encounter Geneva Mary Grace [facility] Start: 05-23-2022 End: 05-24-[address] JOHN PERDOMO [facility] Other Start: 05-14-2022 End: 05-15-2022 ambulatory KWAN ROSALES Facility:[facility] Start: 05-12-2022 End: 05-12-2022 ambulatory Geneva Mary Grace Other [facility] Other Start: 05-12-2022 Telephone encounter Geneva Mary Grace [facility] Start: 05-11-2022 End: 05-12-2022 ambulatory KWAN ROSALES Facility:[facility] Start: 03-17-2022 End: 03-18-[address] JOHN PERDOMO Facility:[facility] Start: 01-27-2022 End: 01-27-2022 ambulatory Geneva Mary Grace Other [facility] Other Start: 01-27-2022 Office outpatient visit 25 minutes Geneva Mary Grace [facility] Start: 01-21-2022 End: 01-22-[address] JOHN PERDOMO Facility: Start: 01-17-2022 End: 01-18-[address] JOHN PERDOMO Facility: Start: 01-13-2022 End: 01-13-2022 ambulatory Geneva Mary Grace Other [facility] Other Start: 01-13-2022 Telephone encounter Geneva Mary Grace [facility] Start: 12-16-2021 Telephone encounter Geneva Mary Grace [facility] Start: 12-16-2021 End: 12-17-[address] JOHN PERDOMO [employer] Other Start: 12-09-2021 End: 12-10-2021 ambulatory JOHN PERDOMO Facility:[facility] Start: 12-08-2021 End: 12-08-2021 ambulatory Geneva Mary Grace Other [facility] Other Start: 12-08-2021 Telephone encounter Geneva Mary Grace [facility] Start: 12-07-2021 End: 12-07-[address] JOHN PERDOMO Facility: Start: 12-06-2021 End: 12-07-[address] JOHN PERDOMO Facility:[facility] Start: 12-01-2021 End: 12-02-[address] JOHN PERDOMO Facility: Start: 11-19-2021 End: 11-20-[address] JOHN PERDOMO Facility:[facility] Start: 11-01-2021 End: 11-01-2021 ambulatory Geneva Mary Grace Other [facility] Other Start: 11-01-2021 Encounter by compute r link Geneva Mary Grace [facility] Start: 10-28-2021 End: 10-28-2021 ambulatory Geneva Mary Grace Other [facility] Other Start: 10-28-2021 Telephone encounter Geneva Mary Grace [facility] Start: 10-13-2021 End: 10-13-2021 ambulatory Geneva Mary Grace Other [facility] Other Start: 10-13-2021 Encounter by [employer] r link Geneva Mary Grace [facility] Start: 10-06-2021 End: 10-06-2021 ambulatory Geneva Mary Grace Other [facility] Other Start: 10-06-2021 Telephone encounter Geneva Mary Grace [facility] Start: 09-21-2021 End: 09-21-2021 ambulatory Geneva Mary Grace Other [facility] Other Start: 09-21-2021 Telephone encounter Geneva Mary Grace [facility] Start: 09-20-2021 End: 09-20-2021 ambulatory Geneva Mary Grace Other [facility] Other Start: 09-20-2021 Office outpatient visit 25 minutes Geneva Mary Grace [facility] Start: 08-01-2021 End: 08-01-2021 ambulatory Geneva Mary Grace Other [facility] Other Start: 08-01-2021 Encounter by compute r link Geneva Mary Grace [facility] Start: 07-18-2021 End: 07-18-2021 ambulatory Geneva Mary Grace Other [facility] Other Start: 07-18-2021 Encounter by jose demetra shivani Geneva Mary [facility] Start: 05-18-2021 End: 05-18-2021 ambulatory Geneva Mary Grace Other [facility] Other Start: 05-18-2021 Office outpatient visit 25 minutes Geneva Mary Grace [facility] Procedures Date Procedure Procedure Detail Performing Clinician Start: 05-15-2024 End: 05-15-2024 Computerized ophthalmic imaging optic nerve Mirta Teran DO Work Phone: Start: 05-15-2024 End: 05-15-2024 [facility] medical xm&eval comprhnsv estab pt 1/> Primary open angle glaucoma (POAG) of both eyes, mild stage (CMS/HCC) Mirta Teran DO Work Phone: Comment on above: 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, mild stage (CMS/HCC) (Primary Dx); 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 (CMS/HCC); Corneal scar, right eye; Dry eyes Plan of Treatment Date Care Activity Detail Author Start: 05-15-2025 Glaucoma screening Diabetes: Retinopathy Screening [facility] Start: 11-26-2024 End: 11-26-2024 Patient encounter procedure 11/26/2024 2:00 PM EDT Office Visit [facility] [address] [place] [id number] Mirta Teran DO [address] [place] [address] [facility] Start: 03-03-2024 Influenza vaccination Influenza Vaccine (#1) [facility] Start: 10-08-2020 Hemoglobin A1c measurement Diabetes: Hemoglobin A1C [facility] Start: 1991 Screening for malignant neoplasm of breast Mammogram [facility] Start: 1970 Urine screening for protein Diabetes: Urine Protein Screening [facility] Start: 1957 Pneumococcal Vaccine: 65+ Years (1 of 2 - PCV) Pneumococcal Vaccine: 65+ Years (1 of 2 - PCV) [facility] Start: 1950 Medicare Annual Wellness (AWV) Medicare Annual Wellness (AWV) [facility] Start: 1950 Screening for malignant neoplasm of colon [facility] Immunofixation for Urine Fir [facility] Renal function 1999 panel - Serum or Plasma [place] Renal function 1999 panel - Serum or Plasma [place] Renal function 1999 panel - Serum or Plasma [place] Renal function 1999 panel - Serum or Plasma [facility] Immunizations Immunization Date Immunization Notes Care Provider Fa cility NEGATED: Highlighted row has not occurred!06-05-2019 influenza, high dose seasonal, preservative-free Patient Objection Geneva Jenkins Other [facility] Other Payers Date Payer Category Payer [facility] Insurance [place] [place] [id number] 2016 Medicare MEDICARE [id number] 1959 Medicare [id number] 1959 Unknown [id number] 1951 Unknown [id number] 2.16.840.1.948542.3.579.2. 647 1951 Unknown [id number] 2.16.840.1.534516.3.579.2. 593 1951 Unknown [id number] 2.16.840.1.897646.3.579.2. 593 1951 Unknown [id number] 2.16.840.1.706530.3.579.2. 593 1951 Unknown [id number] 2.16.840.1.179844.3.579.2. 593 1951 Unknown [id number] 2.16.840.1.797628.3.579.2. 593 1951 Unknown [id number] 2.16.840.1.789389.3.579.2. 593 1951 Unknown [id number] 2.16.840.1.844866.3.579.2. 593 1951 Unknown [id number] 2.16.840.1.954170.3.579.2. 593 1951 Unknown [id number] 2.16.840.1.426872.3.579.2. 593 1951 Unknown [id number] 2.16.840.1.555204.3.579.2. 593 1951 Unknown [id number] 2.16.840.1.581785.3.579.2. 593 1951 Unknown [id number] 2.16.840.1.805893.3.579.2. 593 1951 Unknown [id number] 2.16.840.1.061247.3.579.2. 593 1951 Unknown [id number] 2.16.840.1.257414.3.579.2. 593 1951 Unknown [id number] 2.16.840.1.821575.3.579.2. 593 1951 Unknown [id number] 2.16.840.1.455886.3.579.2. 593 1951 Unknown [id number] 2.16.840.1.264113.3.579.2. 593 1951 Unknown [id number] 2.16.840.1.242866.3.579.2. 593 1951 Unknown [id number] 2.16.840.1.821620.3.579.2. 593 1951 Unknown [id number] 2.16.840.1.750855.3.579.2. 593 1951 Unknown [id number] 2.16.840.1.506091.3.579.2. 1259 1951 Unknown [id number] 2.16.840.1.659842.3.579.2. 1259 1951 Unknown [id number] 2.16.840.1.786593.3.579.2. 1259 Self-pay Self Pay [id number] Unknown Regular Insurance [id number] Social History Date Type Detail Facility Unknown if ever smoked [facility] [employer] Other Start: 05-15-2024 Sex Assigned At [facility] [employer] Other Start: 11-23-2017 End: 01-08-2024 Tobacco smoking status NHIS Never smoked tobacco (finding) [place] Start: 1950 Sex Assigned At Female [facility] Start: 05-13-2024 End: 09-03-2024 Sex Female (finding) [place] Start: 09-26-2023 Tobacco use and exposure Smokeless tobacco non-user [facility] Start: 05-15-2024 Alcoholic beverage intake Lifetime non-drinker (finding) [facility] Start: 05-15-2024 History of Social function [facility] Start: 09-26-2023 Alcohol Comment caffeine intak e: 1-2 cups per day soda/pop 1-2 cans per week [facility] Start: 05-01-2023 Gender identity Identifies as female gender (finding) [facility] Clinical Notes 04-27-2020 to 09-16-2024 Mirta Teran, DO - 05/15/2024 1:30 PM EST Note Date & Type Note Facility 09-16-2024 Note [place] [facility] - [facility] Subjective Claudia Estrella is a 74 y.o. year old female patient being seen for follow up 6 mo follow up CAD, chronic diastolic heart failure, and hypertension. Had labs last month for nephrology. She only had 1 tablet left of metoprolol (50mg) and took it yesterday. Hasn't had any today. She was told by [facility] that she can't get it until . Denies chest pain. Only taking metolazone and midodrine rarely. Patient Active Problem List Diagnosis Coronary arteriosclerosis [...] Microscopic hematuria Nontoxic multinodular goiter Secondary hyperparathyroidism Family History Problem Relation Name Age of Onset Heart attack Mother Heart failure Mother Heart attack Father Social History Tobacco Use Smoking status: Never Smokeless tobacco: Never Substance Use Topics Alcohol use: Not Currently HPI Claudia is seen in follow-up. She is a 74-year-old woman with prior history of hypertension and [...] diuretic therapy. Her diuretic therapy was adjusted. At last visit with me on 03/29/2024 and due to low blood pressure reduced Cardura from 6 mg twice daily to 6 mg in the morning and 4 mg in the evening. She is currently back to taking it 6 mg twice daily. Her blood pressure today is elevated. She has missed metoprolol as she ran out. Today she reports that she has been doing well. She has no significant lower extremity edema. She has mild shortness of breath on exertion, NYHA class II. No palpitations. Review of Systems Constitutional: Positive for malaise/fatigue. Cardiovascular: Positive for dyspnea on exertion. Respiratory: Positive for wheezing. All other systems reviewed and are negative. Objective Visit Vitals BP 157/64 (BP Location: Left arm, Patient Position: Sitting) Pulse 94 Ht 1.422 m (4' 8 ) Wt [...] Allergen Reactions Erythromycin Other Erythromycin Base Hydromorphone (more content not included)... [facility] 05-15-2024 Note Right Eye Quality was good. Scan locations included subfoveal. Progression has been stable. Findings include abnormal foveal contour, intraretinal fluid, subretinal fluid. Left Eye Quality was good. Scan locations included subfoveal. Progression has been stable. Findings include abnormal foveal contour. Notes Area of atrophy w/ retinal pigment epithelium (RPE) tear [facility] 05-15-2024 History of Present illness Narrative Images from the original note were not included. 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 Americo Dyer. Discussed the pathophysiology of diabetes and its effect on the eye. Stressed the importance of strong glucose control. Advised of importance of at least yearly dilated examinations, but to contact us immediately for any problems or concerns. Primary open angle glaucoma (POAG) of both eyes, mild stage (CMS/HCC) - Primary open angle glaucoma OU - Importance of taking medications as prescribed was stressed. Patient was advised to report any inability or unwillingness to take medications or if cost is a concern. Patient must report any side effects that may develop. Patient must report any change in systemic medications as they may interact or interfere with their glaucoma medications. Patient will be dilated at least on an annual basis for optic nerve evaluation and will likely have an automated visual field examination at least once a year. It was explained to the patient that they might require additional treatment for intraocular pressure control such as laser therapy or surgical intervention. - Cont. Dorz/[place]on both eyes (OU) BID. She continues to receive intravitreal steroid in right eye (OD) most recently with an Illuvien. 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 No longer on oral antiviral. Dry eyes - Dry Eyes OU -- Environmental changes to minimize dryness and exposure and the use of artificial tears were recommended. documented in this encounter [facility] 03-29-2024 Note [place] [facility] Subjective Claudia Estrella is a 73 [...] Medications: allopurinol (Zy (more content not included)... [facility] 05-30-2023 Evaluation note Encounter Date Diagnosis [...] has adequate Iron stores. Continue oral iron. [facility] Other 07-31-2023 Evaluation note* Encounter Date Diagnosis [...] benefit SGLT 2 inhibitors inhibitors including Farxiga Regance or Invokana. Dec, Secondary hyperparathyroidism (ICD-10 - [...] has adequate Iron stores. Continue oral iron. [facility] Other 02-28-2023 Evaluation note* Encounter Date Diagnosis [...] past. Will defer this to the PCP. [facility] Other 11-28-2022 Evaluation note* Encounter Date Diagnosis [...] slow down the progression of CKD. 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 Continue oral iron. [facility] Other 11-21-2022 Evaluation note* Encounter Date Diagnosis Assessment Notes Treatment Notes Treatment Clinical Notes May, CKD (chronic kidney disease) stage 4, GFR 15-29 ml/min (ICD-10 - N18.4) [facility] Other 07-28-2022 Evaluation note* Encounter Date Diagnosis [...] an adequate Iron stores. Continue oral iron. [facility] Other 03-22-2022 Evaluation note* Encounter Date Diagnosis Assessment Notes Treatment Notes Treatment Clinical Notes Aug, Hypokalemia (ICD-10 - E87.6) [facility] Other 03-21-2022 Evaluation note* Encounter Date Diagnosis [...] an adequate Iron stores. Continue oral iron. [facility] Other 01-16-2022 Evaluation note* Encounter Date Diagnosis Assessment Notes Treatment Notes Treatment Clinical Notes Jul, Hyperuricemia (ICD-1 0 - E79.0) [facility] Other 11-16-2021 Evaluation note* Encounter Date Diagnosis [...] to slow down the progression of CKD. 16 Nov, 2021 Corky hy kid w cr kid I-IV [...] an adequate Iron stores. Continue oral iron. [facility] Other 11-02-2020 NoteRounds at this time with Dr Marilu Yeboah. Daughter bedside. Patient is alert & [...] MURPHY Amor notified Taylor Fisher & Maryan Lopez.[facility]:Result Comment: Electronically Signed By: Kip WU, Zuleyma Mcdonough\.br\Date and Time Signed: 05/04/20 13:53 [id number] NoteBasic Information Cardiology Progress Subjective Cardiology consulted over weekend for chest discomfort post operatively. Her EKG was non-acute and troponin trended negative. She does have a tellers supervisor and reportedly had stress testing in [...] mg/dL High (05/04/20 12:12:00) POC Device SN: [id number] (05/04/20 12:12:00) POC Username: NESHA COTA (05/04/20 [...] prefers all testing to be performed at [facility]. Faxed notes to her primary tellers supervisor's office, Dr Fish. Attempted to schedule stress testing with [facility]. Ordered: EC Stress Echo Complete w/ Contrast 2. Hypertension (I10: Essential (primary) hypertension) Continue current medications and follow up with primary tellers supervisor on discharge. 3. Diabetes (E11.9: Type [...] discuss this management further with her primary tellers supervisor, but agreeable to starting statin for now. Patient is offered in-patient stress echocardiogram but declines as she wants to be discharged. She is offered out patient stress testing at [facility] tomorrow am and she prefers to have this done at [facility]. Per Central Scheduling at [facility], Dobutamine Stress Echo's are not performed at the facility. She will have close FU with Dr Fish to move forward with testing. D/W Dr Guzmán. Faxed info from [facility] Hospital stay to her primary tellers supervisor. Attestation Discussed patient findings and plan [...] tab(s), Oral, Bedtime saturnino (more content not included)...[facility]: Result Comment: Electronically Signed By: Trudy SUAZO CNP\.br\Date and Time Signed: 05/04/20 13:15 EST\.br\Electronically Co-Signed By: Jay Jay Ramírez MD\.br\Date and Time Co-Signed: 05/04/20 13:19 [id number] NoteIV removed. nurse catering server emptied. patient and patients daughter verbalized understanding of discharge teaching. patient refused flu vaccination. patient did not verbalize any questions or concerns atthis time.[facility]11-02-2020 Note Admission Information Admitting Physician - [...] another day versus following up with her tellers supervisor and she has opted to do the latter. This is reasonable as she is chest pain-free at rest as well as on exertion. Patient is already on lisinopril, metoprolol, aspirin. Lipitor 20 mg was added for further risk reduction. She will follow-up with her primary tellers supervisor Dr. Fish. Regarding her recent Ortho surgery she will do weightbearing activity as tolerated and use crutchesfor assistance with ambulation. Dr. Kushal Guzmán Hospitalist This report was transcribed using voice recognition software. Every effort was made to ensure accuracy, however, inadvertently computerized extractor filler mistakes may be present. Significant Findings POWERSCRIBE [...] pain) Ordered: Hospital Discharge Day 30 Min/Less 50246 2. Hypertension (I10: Essential (primary) hypertension) Ordered: Hospital Discharge Day 30 Min/Less 58768 3. Diabetes (E11.9: Type 2 diabetes mellitus without complications) Ordered: atorvastatin, 20 mg = 1 tab(s), Oral, Bedtime, # 30 tab(s), Refills(s) 1, Pharmacy: [facility]/pharmacy #[id number], 141.5, cm, 04/24/20 13:16:00 EDT, Height/Length Dosing, 69, kg, 05/02/20 5:50:00 EDT, Weight Dosing Hospital Discharge Day 30 Min/Less 69377 4. Acute medial meniscus tear of left knee (S83.242A: Other tear of medial meniscus, current injury, left knee, initial encounter) Ordered: Hospital Discharge Day 30 Min/Less 29400 5. Localized osteoarthritis of left knee (M17.12: Unilateral primary osteoarthritis, left knee) Ordered: Hospital Discharge Day 30 Min/Less 18969 6. No contraindication to deep vein thrombosis (DVT) prophylaxis (Z78.9: Other specified health status) Ordered: Hospital Discharge Day 30 Min/Less 08718 Bruit (R09.89: Other specified symptoms and signs [...] With When Contact Information Follow up with Director Fixed Income Within 1 week Additional Instructions: JOHN PERDOMO [address] [place] [address]- [employer] (1) Additional Instructions: David Talamantes [address] [place] [id number]- [employer] (1) Additional Instructions: Keep scheduled (more content not included)...[facility]Result Comment: Electronically Signed By: Kushal GUZMÁN MD\.br\Date and Time Signed: 05/04/20 12:[id number] Amir rounded with patient earlier. CRM [...] time. Anticipated discharge 05/04/2020 home. CRM to follow.[facility]Result Comment: Electronically Signed By: Terri Berger RN\.br\Date and Time Signed: 05/02/20 10:06 [id number] NoteReason for Consultation Chest pain postoperatively History of Present Illness Mrs. Estrella is a very pleasant 70-year-old diabetic female with hypertension, unknown cholesterol, previously seen by tellers supervisor Dr. Fish in September 2019 for [...] testing apparently took place in a private tellers supervisor office, so I am unsure whether [...] test in September 2019 at a private tellers supervisor 's office, reportedly LV dysfunction per [...] she undergo a dobutami (more content not included)...[facility]:Result Comment: Electronically Signed By: Eleuterio VIGIL, John Carlson\Date and Time Signed: 05/02/20 08:35 [id number] NoteBasic Information Accompanied by: Family member Source of History: Self Present at Bedside: Family member Referral Source: Recovery room History Limitation: None Chief Complaint chest pain History of Present Illness Pt is a 70 F PMH HTN, HLD admitted from PACU. pt had a repair of a left medial meniscus tear [facility]. Pt was in PACU recovering, had [...] 84 mg/dL (05/01/20 16:07:00) POC Device SN: [id number] (05/01/20 16:07:00) POC Username: ALEXIA HALL (05/01/20 16:07:00) Diagnostic Results EKG NSR [address]-T wave changes Images No qualifying data available. Assessment/Plan 1. Other chest pain (R07.89: Other chest pain) - possible ACS, risk factors include DM, HTN, obesity - telemetry, troponin - ASA, fasting lipid profile - consult [facility] 2. Hypertension (I10: Essential (primary) hypertension) [...] acetaminophen 325 mg Tab (more content not included)...[facility]Result Comment: Electronically Signed By: JUN VIGIL, Nhung\.br\Date and Time Signed: 05/01/20 18:30 [id number] Note [id number]:127[facility] Evaluation noteNo [facility] [employer] Other Evaluation note* Diagnosis Onset Date Resolution Status Anemia of renal disease acut e CKD (chronic kidney disease) stage 4, GFR 15-29 ml/min acute Hyperlipidemia acute [id number] acute Hyperuricemia acute Hypokalemia acute Microscopic hematuria acute Secondary hyperparathyroidism acute Type 2 diabetes mellitus wit h diabetic chronic kidney disease acute [facility] Work Phone: Evaluation note* Diagnosis Onset Date Resolution Status Admit Date Anemia of renal disease acute N ovember 2023 3:17pm CKD (chronic kidney disease) stage 4, GFR 15-29 ml/min acute May 3:17pm Hyperlipidemia acute May 032023 3:17pm Hypertensive chronic kidney disease with stage 1 through stage 4 chronic ki acute May 13, 024 3:17pm Hyperuricemia acute May 132023 3:17pm Hypokalemia acute May 3:17pm Microscopic hematuria acute May 3:17pm Secondary hyperparathyroidism acute May 13, 2024 3:17pm Type 2 diabetes mellitus wit h diabetic chronic kidney disease acute May 13, 2024 3:17pm [facility] Work Phone: Evaluation note* Diagnosis Primary open angle glaucoma (POAG) of both eyes, mild stage (CMS/HCC)- Primary 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 (CMS/HCC) Corneal scar, right eye Unspecified corneal opacity Dry eyes Unspecified tear film insufficiency documented in this encounter [facility] HealthcareEvaluation noteNo assessment information availableK[facility] Work Phone: Hiswgoe general Narrative - Reported* Type Description Date [...] eye surgery 04/2021 Hospitalization History see above aaTag Other Hiseajr general Narrative - Reported* Type Description Date [...] RIGHT EYE 2021 Hospitalization History see above aaTag Other History general Narrative - Reported* Type [...] HEART CATH 12/2021 Hospitalization History see above aaTag Other Summary Purpose Family History No Family [...] Advance Directives No July 27, 2021 11:36am Advance Directive Response Recorded Date/ Time Advance Directives No July 27, 2021 10:36am Chief Complaint and Reason for Visit Chief Complaint RENAL 4 month Follow up Reason for Visit Anemia of renal dise ase CKD (chronic kidney disease) stage 4, GFR 15-29 ml/min Hyperlipidemia [id number] Hyperuricemia Hypokalemia Microscopic hematuria Secondary hyperparathyroidism Type 2 diabetes mellitus with diabetic chronic kidney disease Chief Complaint RENAL 4 MONTH F/U Reason for Visit Anemia of renal dise ase CKD (chronic kidney disease) stage 4, GFR 15-29 ml/min Hyperlipidemia [id number] Hyperuricemia Hypokalemia Microscopic hematuria Secondary hyperparathyroidism Type 2 diabetes mellitus with diabetic chronic kidney disease Chief Complaint Admit Date RENAL 4 MONTH F/U May 13, 2024 3:17pm Reason for Visit Admit Date Anemia of renal disease May 13 024 3:17pm CKD (chronic kidney disease) stage 4, GF R 15-29 ml/min May 13, 2024 3:17pm Hyperlipidemia May 13, 2024 3:17pm Hypertensive chronic kidney disease with stage 1 through stage 4 chronic ki May 13, 2024 3:17pm Hyperuricemia May 13, 2024 3:17pm Hypokalemia May 13, 2024 3:17pm Microscopic hematuria May 13 3:17pm Secondary hyperparathyroidism May 032023 3:17pm Type 2 diabetes mellitus wit h diabetic chronic kidney disease May 13, 2024 3:17pm Chief Complaint Admit Date renal 4month f/u September 03, 2024 3:15 pm Additional Source Comments INFORMATION SOURCE (unrecogn ized section and content) DATE CREATED AUTHOR 03/07/2021 [facility] DATE CREATED AUTHOR AUTHOR'S ORGANIZ ATION 08/05/2021 [facility] DATE CREATED AUTHOR AUTHOR'S ORGANIZ ATION 12/16/2021 [facility] DATE CREATED AUTHOR AUTHOR'S ORGANIZ ATION 10/29/2022 [facility] DATE CREATED AUTHOR AUTHOR'S ORGANIZ ATION 05/17/2024 [facility] EPIC DATE CREATED AUTHOR AUTHOR'S ORGANIZ ATION 11/09/2024 [facility] REASON FOR VISIT (unrecogniz ed section and content) Reason Comments Follow-up Care Teams (unrecognized sec tion and content) Team Status: Active Member Role Status Dates John Perdomo , DO Primary Care Provider Active Team Status: [...] September 25, 2023 End: September 25, 2023 Team Status: Active Member Role Status Dates John Perdomo DO Primary Care Provider Active Start: May 09, 2024 Geneva Jenkins MD Attending Provider Active Start : May 09, 2024 Team Status: Inactive Member Role Status Dates John Perdomo DO Primary Care Provider Active Start: May 13, 2024 End: May 13, 2024 Geneva Jenkins MD Attending Provider Active Start : May 13, 2024 End: May 13, 2024 Engineering Manager Electronics Relationship Specialty Start Date End Date Unallocated, Ara Robertson MD [address] [place] [address] PCP - General Family Medicine 08/18/23 John Perdomo MD [address] [place] [address] Referring Physician Orthopaedic Surgery 05/08/23 Engineering Manager Electronics Relationship Specialty Start Date End Date Unallocated, [place] [address] PCP - General Family Medicine 08/18/23 John Perdomo MD [address] [place] [address] Referring Physician Orthopaedic Surgery 05/08/23 Team Status: Active Member Role Status Dates John Perdomo DO Primary Care Provider Active Start: August 26, 2024 Geneva Jenkins MD Attending Provider Active Start : August 26, 2024 Team Status: Inactive Member Role Status Dates John A DO Leanne Primary Care Provider Active Start: September 03, 2024 End: September 03, 2024 Geneva Jenkins MD Attending Provider Active Start : September 03, 2024 End: September 03, 2024 Goals (unrecognized section and content) Goals may [...] BE BASED ON THE PRIMARY CLINICAL RECORDS. [employer] provides no warranty or guarantee of the accuracy or completeness of information in this document.
[2024-11-18 11:08] LABS: Basophils Absolute Auto 0.1 10^3/uL (0.0-0.1); Eosinophils Absolute Auto 1.1 10^3/uL (0.0-0.7); Eosinophils Percent Auto 13.8 % (0.9-7.0); Hematocrit 31.1 % (36.0-48.0); Hemoglobin 10.6 g/dL (12.0-16.0); Immature Granulocytes Abs Auto 0.03 10^3/uL (0.00-0.03); Immature Granulocytes Pct Auto 0.4 % (0.0-0.5); Lymphocytes Absolute Auto 0.9 10^3/uL (1.2-3.8); Lymphocytes Percent Auto 10.9 % (20.5-60.0); Mean Corpuscular HGB Conc 34.1 g/dL (29.9-35.2); Mean Corpuscular Hemoglobin 30.3 pg (26.7-34.0); Mean Corpuscular Volume 88.9 fL (81.0-99.0); Mean Platelet Volume 11.2 fL (9.5-13.5); Monocytes Absolute Auto 0.5 10^3/uL (0.3-0.8); Monocytes Percent Auto 6.4 % (1.7-12.0); Neutrophils Absolute Auto 5.6 10^3/uL (1.4-6.5); Neutrophils Percent Auto 67.5 % (43.0-75.0); Platelet Count 168 10^3/uL (150-450); Red Cell Distribution Width 14.2 % (11.0-15.0); White Blood Count 8.3 10^3/uL (4.0-11.0)
[2024-11-18 11:55] LABS: Estimated Average Glucose 151 mg/dL; Glycohemoglobin A1C 6.9 % (4.5-6.2)
[2024-11-18 12:10] LABS: Alanine Aminotransferase 17 U/L (14-59); Albumin Globulin Ratio 0.8; Albumin Level 3.2 g/dL (3.4-5.0); Alkaline Phosphatase 72 U/L (46-116); Anion Gap 12.2; Aspartate Amino Transferase 16 U/L (15-37); BUN Creatinine Ratio 19.3; Bilirubin Total 0.6 mg/dL (0.2-1.0); Carbon Dioxide 26.6 mmol/L (21.0-32.0); Chloride 104 mmol/L (98-107); Chol HDL Ratio 2.1; Cholesterol 136 mg/dL (<=200); Estimated GFR (African America 23 (>=60 mL/min/1.73m^2); Estimated GFR (Non-African Ame 19 (>=60 mL/min/1.73m^2); Free T3 1.89 pg/mL (2.18-3.98); Globulin 4.1 g/dL; Glucose 139 mg/dL (74-106); HDL Cholesterol 66 mg/dL (40-60); Potassium 3.8 mmol/L (3.5-5.1); Sodium 139 mmol/L (136-145); Thyroid Stimulating Hormone 7.596 uIU/mL (0.358-3.740); Total Protein 7.3 g/dL (6.4-8.2); Triglycerides 65 mg/dL (<=150)
[2024-11-18 12:21] LABS: Free T4 1.33 ng/dL (0.76-1.46)
[2024-11-18 12:28] LABS: Creatinine Urine Random 55.33 mg/dL (20.00-300.00); Microalbum Creatinine Ratio Ur 2877.2 mg/g (0.0-29.9); Microalbumin Urine Random 159.2 mg/dL (<=30.0)
[2024-11-19 03:12] LABS: Vitamin B12 603 pg/mL (232-1245)
[2024-11-19 09:09] LABS: PTH, Intact 70 pg/mL (15-65)
== END 2024-11-18 10:27 | disposition home or self-care (01) ==
LOC: LAB 10:36
PROVIDERS: PCP Family Medicine; Visit Provider Family Medicine
DX: E78.00 Pure hypercholesterolemia, unspecified (principal); R53.83 Other fatigue; E11.22 Type 2 diabetes mellitus with diabetic chronic kidney disease; N25.81 Secondary hyperparathyroidism of renal origin; E55.9 Vitamin D deficiency, unspecified; E03.9 Hypothyroidism, unspecified; E87.6 Hypokalemia; I10 Essential (primary) hypertension
CPT/HCPCS: 36415; 80053; 80061; 82043; 82306; 82570; 82607; 82746; 83036; 83970; 84439; 84443; 84481; 85025

== ENCOUNTER 2025-01-09 10:57 | Outpatient (OUT) | payer MEDICARE, OTHER, SELFPAY ==
--- OUTSIDE RECORDS SUMMARY | 2025-01-09 10:59 | XMS_ITS | Encounter Summary ---
Author Organization [facility] Address [address] [facility] [place] [address] Care Team Providers Care Refrigerator Mover Name Role Phone John Perdomo MD Unavailable [phone] Unallocated, Noms Provider Primary Care Provi [facility] Encounter Details Date Type Department Care Team (Late st Contact Info) Description 09/14/2023 Orders Only [facility] [address] [place] [id number] Kami Garcia, BRYCE [address] [place], [place] [id number] Nontoxic multinodular goiter Social History Tobacco Use Types Packs/Day Years Used Date Smoking Tobacco: Never Comments Unknown Sex and Gender Information Value Date Recorded Sex Assigned at Female 05/01/2023 9:06 AM EDT Legal Sex Female 8:34 PM EDT Gender Identity Female 05/01/2023 9:06 AM EDT Sexual Orientation Not on file documented as of this encounter Plan of Treatment Upcoming Encounters Date Type Department Care Team (Late st Contact Info) Description 06/04/2025 1:15 PM EST Office Visit [facility] [address] [place] [phone] Johnathon Yanez DO [address] [place] [address] documented as of this encounter Visit Diagnoses Diagnosis Nontoxic multinodular goiter Nontoxic multinodular goiter documented in this encounter Care Teams Refrigerator Mover Relationship Specialty Start Date End Date Unallocated, Noms Provider, [address] [place] [address] PCP - General Family Medicine 08/18/23 John Perdomo MD [address] [place] [address] Referring Physician Orthopaedic Surgery 05/08/23 documented as of this encounter
--- OUTSIDE RECORDS SUMMARY | 2025-01-09 10:59 | XMS_ITS | Encounter Summary ---
Author Organization [facility] Address [address] [facility] [place] [address] Care Team Providers Care Burnishing Machine Operator Name Role Phone John Galindo MD Unavailable [phone] Unallocated, Noms Provider MD Primary Care Provi kortney Encounter Details Date Type Department Care Team (Late st Contact Info) Description 09/09/2023 Clinisync Result Encounter [facility] External Department Unsolicited Anahi Stanford MD [address] [facility] [address] [place] [address] Social History Tobacco Use Types Packs/Day Years [...] [facility] [address] [place] [address] Johnathon Yanez, DO [address] [place] [address] [phone] (work) documented as of this encounter Procedures Procedure Name Priority Date/Time Associated Diagnosis Comments US THYROID 09/09/2023 4:18 AM EST documented in this encounter Results * US thyroid (09/09/2023 4:18 AM EST) Anatomical Region Laterality Modality Head, Neck Ultrasound 09/09/2023 4:18 AM EST Narrative 09/09/2023 4:20 [place] [address] Ultrasound Report Signed Patient: CLAUDIA POLO MR#: [id number] : 1950 Acct:[id number] Age/Sex: 73 / F ADM Date: 09/06/23 Loc: US Attending Dr: Anahi Stanford M.D. Ordering Physician: Anahi Stanford M.D. Date of Service: 09/06/23 Procedure(s): US thyroid Accession Number(s): [id number] cc: JOHN GALINDO D.O.; Anahi Stanford M.D. [place] [id number] Patient Name: CLAUDIA POLO MRN: [id number] date: 1950 Sex: F Assigned Patient Location: US Current Patient Location: US Accession/Order Number: [id number] Exam Date: 09/06/2023 15:00 Report Date: 09/09/2023 04:18 At the request of: ANAHI STANFORD Procedure: US thyroid EXAMINATION: US thyroid HISTORY: Nontoxic Multinodular Goiter E04.2 COMPARISON: Ultrasound thyroid 08/24/2022 FINDINGS: RIGHT LOBE: Heterogeneous echotexture containing a 1.4 cm TR 4 nodule within mid body. Lobe size: 4.2 x 1.7 x 1.4 cm LEFT LOBE: Heterogeneous echotexture containing a 0.5 cm TR 3 nodule within inferior pole and a 0.9 cm TR 2 nodule within mid body. Lobe size: 3.9 x 2.1 x 1.4 cm ISTHMUS: Heterogeneous echotexture. Thickness: 3 mm US/US thyroid IMPRESSION: 1. Heterogeneous thyroid gland containing several nodules. Follow-up ultrasound evaluation one year is recommended. TR4 (moderately suspicious): If > 1.0 cm, follow-up ultrasound in 1, 2, 3, and 5 years. If > 1.5 cm, fine needle aspiration (FNA). TR3 (mildly suspicious): > 1.5 cm, follow-up ultrasound in 1, 3, and 5 years. > 2.5 cm, fine needle aspiration. TI-RADS 2: Benign nodules. Noticeably benign pattern (0% risk of malignancy) Electronically authenticated by: LOCO MICHELLE Date: 09/09/2023 04:18 Dictated By: Loco Michelle M.D. Signed By: 09/09/23419 DD/ TD/TT: Import Specialist: Procedure Note Radiology, Radiologist, MD - 09/09/2023 [place] [address] Ultrasound Report Signed Patient: CLAUDIA POLO EMR#: [id number] : 1950cct:[id number] Age/Sex: 73 / FADM Date: 09/06/23 Loc: US Attending Dr: Anahi Stanford M.D. Ordering Physician: Anahi Stanford M.D. Date of Service: 09/06/23 Procedure(s): US thyroid Accession Number(s): [id number] cc: JOHN GALINDO D.O.; Anahi Stanford M.D. [place] [address] Patient Name: CLAUDIA POLO MRN: [id number] date: 1950 Sex: F Assigned Patient Location: US Current Patient Location: US Accession/Order Number: [id number] Exam Date: 09/06/2023 15:00 Report Date: 09/09/2023 04:18 At the request of: ANAHI STANFORD Procedure: US thyroid EXAMINATION: US thyroid HISTORY: Nontoxic Multinodular Goiter E04.2 COMPARISON: Ultrasound thyroid 08/24/2022 FINDINGS: RIGHT LOBE: Heterogeneous echotexture containing a 1.4 cm TR 4 nodulewithin mid body. Lobe size: 4.2 x 1.7 x 1.4 cm LEFT LOBE: Heterogeneous echotexture containing a 0.5 cm TR 3 nodulewithin inferior pole and a 0.9 cm TR 2 nodule within mid body. Lobe size: 3.9 x 2.1 x 1.4 cm ISTHMUS: Heterogeneous echotexture. Thickness: 3 mm US/US thyroid IMPRESSION: 1. Heterogeneous thyroid gland containing several nodules. Follow-up ultrasound evaluation one year is recommended. TR4 (moderately suspicious): If > 1.0 cm, follow-up ultrasound in 1, 2, 3,and 5 years. If > 1.5 cm, fine needle aspiration (FNA). TR3 (mildly suspicious): > 1.5 cm, follow-up ultrasound in 1, 3, and 5years. > 2.5 cm, fine needle aspiration. TI-RADS 2: Benign nodules. Noticeably benign pattern (0% risk ofmalignancy) Electronically authenticated by: LOCO MICHELLE Date: 09/09/2023 04:18 Dictated By: Loco Michelle M.D. Signed By:09/09/23 0420 DD/ 0418 TD/TT: Import Specialist: us Anahi Stanford MD IMG US PROCEDURES Final Resul t documented in this encounter Visit Diagnoses Not on filedocumented in this encounter Care Teams Burnishing Machine Operator Relationship Specialty Start Date End Date Unallocated, Noms Marcelo, [facility] [place] [address] PCP - General Family Medicine 08/18/23 John Galindo MD [address] [place] [address] Referring Physician Orthopaedic Surgery 05/08/23 documented as of this encounter
--- OUTSIDE RECORDS SUMMARY | 2025-01-09 10:59 | XMS_ITS | Clinical Summary ---
Author Organization [facility] Address [address] [place] [address] Care Team Providers Care Advanced Manufacturing Engineer Name Role Phone John Perdomo MD Unavailable [phone] Unallocated, Noms Provider MD Primary Care Provi kortney Allergies Active Allergy Reactions Criticality Noted Date Comments Erythromycin Anaphylaxis,Other,Unknown High 05/10/20 Erythromycin Base Anaphylaxis High 05/10/2022 Hydromorphone Other 05/10/2022 Penicillin G Other 05/08/2023 Penicillins Hives 05/10/2022 Spironolactone Rash Low 09/04/2023 Medications potassium chloride CR (K-Tab) 20 MEQ ER tablet Take 40 mEq by mouth in the morning and 40 mEq in the evening and 40 mEq before bedtime. 3 Active nitroglycerin (Nitrostat) 0.[address] 1 TABLET UNDER TONGUE EVERY 5 MINUTES IF NEEDED FOR CHEST PAIN Active metoprolol tartrate (Lopressor) 50 MG tablet Take 1.5 tablets by mouth in the morning and 1.5 tablets before bedtime. 3 Active metOLazone (Zaroxolyn) 2.5 MG tablet TAKE 1 TABLET BY MOUTH TWICE WEEKLY Active levothyroxine (Synthroid, Levoxyl) 50 MCG tablet Take 1 tablet by mouth in the morning. Active hydrALAZINE (Apresoline) 50 MG tablet TAKE 1 TABLET BY MOUTH THREE TIMES A DAY FOR 90 DAYS 3 Active ferrous sulfate 325 (65 Fe) MG tablet Take 1 tablet by mouth every other day. Active ergocalciferol (Vitamin D-2) 1.25 MG (15198 UT) capsule Take 1 capsule by mouth 1 (one) time per week. Active doxazosin (Cardura) 4 MG tablet TAKE 1 AND 1/2 TABLETS BY MOUTH TWICE DAILY FOR 90 DAYS 3 Active bumetanide (Bumex) 2 MG tablet Take 1.5 tablets by mouth in the morning and 1.5 tablets before bedtime. Active atorvastatin (Lipitor) 40 MG tablet Take 1 tablet by mouth at bedtime. 3 Active aspirin 81 MG EC tablet Take 1 tablet by mouth in the morning. Active allopurinol (Zyloprim) 100 MG tablet TAKE 1 TABLET BY MOUTH EVERY DAY FOR 90 DAYS Active midodrine (Proamatine) 5 MG tablet Take 5 mg by mouth in the morning and 5 mg in the evening and 5 mg before bedtime. Active amLODIPine (Norvasc) 10 MG tablet Take 1 tablet by mouth Daily 1 Active cycloSPORINE (Restasis) 0.05 % ophthalmic emulsion 1 (one) time each day at the same time Active dexAMETHasone (Ozurdex) 0.7 MG ocular implant as directed Intravitreal Active Docusate Sodium (DSS) 100 MG capsule every 12 (twelve) hours Active fluocinolone (Iluvien) 0.19 MG implant as directed Intravitreal Active isosorbide mononitrate ER (Imdur) 30 MG 24 hr tablet TAKE 1 TABLET BY MOUTH EVERY MORNING *DO NOT CRUSH OR CHEW* 4 Active latanoprost (Xalatan) 0.005 % ophthalmic solution 1 (one) time each day at the same time Active liothyronine (Cytomel) 5 MCG tablet TAKE 2 TABLETS BY MOUTH ONCE A DAY 4 Active dorzolamide-sakina olol (Cosopt) 2-0.5 % ophthalmic solution Twice daily 4 Active isosorbide dinitrate (Isordil) 30 MG tablet Daily 4 Active dorzolamide-sakina olol (Cosopt) 2-0.5 % ophthalmic solutionIndicat ions:Primary open angle glaucoma (POAG) of both eyes, mild stage ADMINISTER 1 DROP INTO BOTH EYES IN THE MORNING AND 1 DROP BEFORE BEDTIME. 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 05/08/2023 Corneal scar, right eye 05/08/2023 Dry eyes 05/08/2023 Primary open angle glaucoma (POAG) of both eyes, mild stage 05/08/2023 Encounters Date Type Department Care Team Description 11/26/2024 2:00 PM EDT Office Visit [facility] [address] [place] [id number] Johnathon Yanez DO Corneal scar, right eye (Primary Dx); Dry eyes; 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 (HCC); Primary open angle glaucoma (POAG) of both eyes, mild stage 11/26/2024 Bamboo flowsheet [facility] [address] [place] [id number] Johnathon Yanez DO 11/26/2024 Travel 11/19/2024 Travel from Last 3 Months Family History Medical History Relation Name Comments Hypertension Daughter Dementia Father Heart disease Father Mental illness Father Heart disease Maternal Grandmother Heart disease Mother Heart disease Other Spouse Hypertension Other Spouse Hypertension Paternal Grandmother Stroke Paternal Grandmother Diabetes Sister Mental illness Sister Hypertension Son Relation Name Status Comments Daughter Alive Father Maternal Grandfather Maternal Grandmother Mother Other Spouse Alive Paternal Grandfather Paternal Grandmother Sister Son Alive Social History Tobacco Use Types Packs/Day Years Used Date Smoking Tobacco: Never Smokeless Tobacco: Never Tobacco Cessation:Counseling Given: Not Answered Alcohol Use Standard Drinks/Week Comments Never 0 (1 standard drink = 0.6 oz pure alcohol) caffeine intake: 1-2 cups per day soda/pop 1-2 cans per week Comments Unknown Sex and Gender Information Value Date Recorded Sex Assigned at Female 05/01/2023 9:06 AM EDT Legal Sex Female 8:34 PM EDT Gender Identity Female 05/01/2023 9:06 AM EDT Sexual Orientation Not on file Last Filed Vital Signs Vital Sign Reading Time Taken Comments Blood Pressure 129/52 09/27/2023 11:29 AM EDT Pulse - - Temperature - - Respiratory Rate - - Oxygen Saturation - - Inhaled Oxygen Concentration - - Weight 59.9 kg (132 lb) 09/27/2023 11:29 AM EDT Height 142.2 cm (4' 8 ) 09/27/2023 11:29 AM EDT Body Mass Index 29.59 09/27/2023 11:29 AM EDT Plan of Treatment Upcoming Encounters Date Type Department Care Team (Late st Contact Info) Description 06/04/2025 1:15 PM EST Office Visit [facility] [address] [place] [phone] Johnathon Yanez DO [address] [place] [address] Health Maintenance Due Date Last Done Comments CT Colonography 1950 Colonoscopy 1950 Colorectal Cancer Screening 1950 FIT-DNA 1950 FIT 1950 FOBT 1950 Medicare Annual Wellness (AWV) 1950 Sigmoidoscopy 1950 Diabetes: Urine Protein Screening 1970 Pneumococcal Vaccine: 65+ Ye ars (1 of 2 - PCV) 1970 Mammogram 1991 Diabetes: Hemoglobin A1C 10/08/2020 07/10/2020 Influenza Vaccine (#1) 2025 Diabetes: Retinopathy Screening 11/26/2025 11/26/2024, 11/26/2024, 11/26/2024, Additional history exists Procedures Procedure Name Priority Date/Time Associated Diagnosis Comments KHAN VISUAL FIELD - OU - BOTH EYES Routine 11/26/2024 2:41 PM EDT Primary open angle glaucoma (POAG) of both eyes, mild stage from Last 3 Months Results * Khan Visual Field - OU - Both Eyes (11/26/2024 2:41 PM EDT) Anatomical Region Laterality Modality Head Visual Field Narrative 11/26/2024 2:41 PM EDT Right Eye Reliability was poor. Progression has been stable. Foveal threshold was normal. Findings include superior nasal step defect, inferior nasal step defect, central scotoma. Left Eye Reliability was borderline. Progression has been stable. Foveal threshold was normal. Findings include superior arcuate defect, inferior arcuate defect, central scotoma. us Johnathon Yanez DO OPHTH VISUAL FIELD Final Re sult from Last 3 Months [place] [address] [employer] Care Teams Advanced Manufacturing Engineer Relationship Specialty Start Date End Date Unallocated, Noms MD [address] [place] [address] PCP - General Family Medicine 08/18/23 John Perdomo MD [facility] [place] [address] Referring Physician Orthopaedic Surgery 05/08/23
--- NOTE | 2025-01-09 11:30 | MM_ITS ---
Patient Name: MADY ESTRELLA MR#: [id number] : 1950 Exam Date: 01/09/2025 Ordering Doctor: DR ROCCO GALINDO D.O. RADIOLOGY REPORT PROCEDURE: MM TOMOSYNTHESIS SCREENING BI COMPARISON: MM TOMOSYNTHESIS SCREENING BI, 05/26/2023. MG MAMM SCREEN 3D STIVEN CAD, 12/29/2020. MG MAMM SCREEN STIVEN W CAD, 11/13/2018. MG MAMM SCREEN STIVEN W CAD, 06/09/2017. INDICATIONS: Screening Calculator Name NCI Breast Cancer Risk Assessment Tool 5 Year Breast Cancer Risk 1.60% Lifetime Breast Cancer Risk 3.90% Personal Breast Cancer No Personal Ovarian Cancer No Treatments None Family Cancers None LOCATION: [facility] BREAST COMPOSITION: There are scattered areas of fibroglandular density. FINDINGS: RIGHT BREAST: No significant suspicious finding. LEFT BREAST: No significant suspicious finding. [id number] DIAGNOSTIC CATEGORY 1--NEGATIVE. RECOMMENDATIONS: ROUTINE MAMMOGRAM AND CLINICAL EVALUATION IN 12 MONTHS. PLEASE NOTE: A NORMAL MAMMOGRAM DOES NOT EXCLUDE THE POSSIBILITY OF BREAST CANCER. A CLINICALLY SUSPICIOUS PALPABLE LUMP SHOULD BE BIOPSIED. Dictated by: Daniel Rodney DO on 01/09/2025 at 13:54 Approved by: Daniel Rodney DO on 01/09/2025 at 13:55
== END 2025-01-09 10:58 | disposition home or self-care (01) ==
LOC: RAD 10:57
PROVIDERS: PCP Family Medicine; Visit Provider Family Medicine
DX: Z12.31 Encounter for screening mammogram for malignant neoplasm of breast (principal); Z78.0 Asymptomatic menopausal state; M81.0 Age-related osteoporosis without current pathological fracture; M85.80 Other specified disorders of bone density and structure, unspecified site
CPT/HCPCS: 77063; 77067; 77080

== ENCOUNTER 2025-01-20 10:55 | Outpatient (OUT) | payer MEDICARE, OTHER, SELFPAY ==
[2025-01-20 11:27] LABS: Glucose Urine UA NEGATIVE (NEGATIVE)
[2025-01-20 11:29] LABS: Hematocrit 32.6 % (36.0-48.0); Hemoglobin 11.1 g/dL (12.0-16.0); Mean Corpuscular HGB Conc 34.0 g/dL (29.9-35.2); Mean Corpuscular Hemoglobin 29.8 pg (26.7-34.0); Mean Corpuscular Volume 87.4 fL (81.0-99.0); Platelet Count 177 10^3/uL (150-450); Red Blood Count 3.73 10^6/uL (4.20-5.40); White Blood Count 9.0 10^3/uL (4.0-11.0)
[2025-01-20 11:35] LABS: Protein Creatinine Ratio Urine 5.45; Total Protein Urine Random 167.6 mg/dL (<=11.9)
[2025-01-20 11:53] LABS: Cast Seen? NONE SEEN #/LPF (NONE SEEN); Crystals Seen? None Seen #/HPF (None Seen)
[2025-01-20 12:22] LABS: Albumin Level 3.2 g/dL (3.4-5.0); Anion Gap 15.8; Blood Urea Nitrogen 50.0 mg/dL (7.0-18.0); Calcium 9.2 mg/dL (8.5-10.1); Carbon Dioxide 25.4 mmol/L (21.0-32.0); Chloride 105 mmol/L (98-107); Estimated GFR (African America 25 (>=60 mL/min/1.73m^2); Estimated GFR (Non-African Ame 20 (>=60 mL/min/1.73m^2); Glucose 158 mg/dL (74-106); Magnesium 2.1 mg/dL (1.8-2.4); Potassium 4.2 mmol/L (3.5-5.1); Sodium 142 mmol/L (136-145); Uric Acid 5.4 mg/dL (2.6-6.0)
[2025-01-20 12:42] LABS: Iron 50.0 ug/dL (50.0-170.0); Percent Iron Saturation 17.9 %; Total Iron Binding Capacity 279.0 ug/dL (250.0-450.0)
== END 2025-01-20 10:56 | disposition home or self-care (01) ==
LOC: LAB 10:58
PROVIDERS: PCP Family Medicine; Visit Provider Internal Medicine
DX: N25.81 Secondary hyperparathyroidism of renal origin (principal); N18.4 Chronic kidney disease, stage 4 (severe); E79.0 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 inflammatory arthritis and tophaceous disease; N18.9 Chronic kidney disease, unspecified; D63.1 Anemia in chronic kidney disease
CPT/HCPCS: 36415; 80069; 81001; 82306; 82570; 82728; 83540; 83550; 83735; 83970; 84156; 84550; 85027

== ENCOUNTER 2025-04-10 11:40 | Outpatient (OUT) | payer MEDICARE, OTHER, SELFPAY ==
--- OUTSIDE RECORDS SUMMARY | 2025-04-10 11:50 | XMS_ITS | CCD ---
Author Organization [facility] Care Team Providers Care Java Manager Name Role Phone JOHN PERDOMO Referring Unavailable PREDOMO, JOHN Primary Care Unavailable MOUKARBELKARTHIK V Attending [...] Attending Unavailable MARY GRACE, GENEVA Consulting Unavailable Perdomo John VIGIL Unavailable Unallocated , Joses Provider Primary Care Provi kortney MIRTA TERAN Attending Unavailable ZAHLMIRTA MAST Attending Unavailable Perdomo John FAIR Primary Care Provider Geneva Jenkins MD Attending Provider KARTHIK FISH Attending Unavailable KARTHIK FISH Attending Unavailable Allergies Allergy Classification Reported Allergen(s) Allergy Type Date of Onset Reaction(s) Facility Opioid Agonists (1 source) HYDROmorphone Drug Allergy 4 Unknown Reaction [facility] Penicillins (antibiotic) (1 source) Penicillin G Benzathine Drug Allergy 4 [facility] Spironolactone (1 source) Spironolactone Drug Allergy 4 [facility] (2 sources) Erythromycin; Translations: [ERYTHROMYCIN] Drug Allergy 1 [facility] Repository (2 sources) HYDROmorphone Drug Allergy 1 [facility] Repository (2 sources) Penicillins; Translations: [PENICILLINS] Drug allergy (disorder) 1 [facility] Repository (20 sources) Erythromycin Drug Allergy 2 anaphylaxis, Other, Unknown [facility] Healthcare (20 sources) HYDROmorphone; Translations: [HYDROMORPHONE] Drug Allergy 2 [facility] (20 sources) Penicillin Drug Allergy Unknown [facility] Other (20 sources) Penicillin G Benzathine Drug allergy 3 [facility] (12 sources) Erythromycin; Translations: [ERYTHROMYCIN BASE] Drug Allergy 0 Anaphylaxis [facility] Repository (1 source) Penicillin Drug Allergy [facility] Repository (8 sources) Spironolactone; Translations: [SPIRONOLACTONE] Drug Allergy 3 [facility] (5 sources) Penicillin G Drug Allergy 3 Other [facility] Healthcare (4 sources) Penicillins Drug Allergy 2 [facility] Healthcare (4 sources) Spironolactone Drug Allergy 4 [facility] Healthcare Medications Current Medications Medication Drug Class(es) Dates Sig (Normalized) Sig (Original) allopurinol 100 mg oral tablet (20 sources) Xanthine Oxidase Inhibitor Start: 09-03-2024 take 1 tablet by mouth once daily Allopurinol 100 mg tablet Active 100 MG PO Daily September 03, 2024 4:38pm Complies with drug therapy Start: 09-06-2023 End: 09-03-2024 take 1 tablet by mouth once daily Allopurinol 100 mg tablet Discontinued 0 .ROUTE .COMPLEX July 29, 2024 7:27pm September 03, 2024 4:42pm TAKE 1 TABLET BY MOUTH EVERY DAY [...] take 1 tablet by mouth once daily amLODIPine (Norvasc) 10 MG tablet Take 1 tablet by mouth Daily 10/28/2020 Active aspirin 81 mg delayed release oral tablet (20 sources) Platelet Aggregation Inhibitor, Nonsteroidal Anti-inflammatory Drug Start: 09-25-2023 End: 09-03-2024 take 1 tablet by mouth once daily Aspirin 81 mg tablet,delayed release (DR/EC) Active 81 MG PO Daily September 03, 2024 4:39pm Complies with drug therapy take 1 tablet by mouth once alayna [...] End: 09-03-2024 take 1 tablet by mouth at bedtime atorvastatin (Lipitor) 40 MG tablet Take 1 tablet by mouth at bedtime. 12/22/2022 Active Basaglar KwikPen 100 units/mL (20 sources) [...] PO Twice daily January 08, 2024 1:04pm Complies with drug therapy Start: 09-25-2023 End: 01-08-2024 take 3 mg [...] DAY Active dexamethasone 0.7 mg drug implant (5 sources) Corticosteroid dexAMETHasone (Ozurdex) 0.7 MG ocular implant as directed Intravitreal Active docusate sodium 100 mg oral capsule (5 sources) Docusate Sodium (DSS) 100 MG capsule [...] mg/ml / timolol 5 mg/ml ophthalmic solution (17 sources) Carbonic Anhydrase Inhibitor, beta-Adrenergic Ranjit Start: 05-15-2024 End: 03-24-2026 take 1 drop(s) into the eye(s) in the morning dorzolamide-timolol (Cosopt) 2-0.5 % ophthalmic solution Indications: Primary open angle glaucoma (POAG) of both eyes, mild stage ADMINISTER 1 DROP INTO BOTH EYES IN THE MORNING AND 1 DROP BEFORE BEDTIME. 30 mL 1 03/24/2025 03/24/2026 Active Start: 09-25-2023 dorzolamide-ti molol (Cosopt) 2-0.5 % ophthalmic solution Twice daily 09/25/2023 Active Start: 09-25-2023 take 1 drop(s) into the eye(s) twice daily Dorzolamide-Timolol 22.3-6.8 mg/mL drops Active 1 DROPS OPHTHALMIC Twice daily September 25, 2023 12:00am FreeTextSi drop into affected eye Ophthalmic Twice a day; Note: Source Status: Taking; Provider: Mary Grace Bean ( ) Complies with drug therapy Dorzolamide HCl- Timolol Mal 2-0.5 % 1 drop into affected eye Ophthalmic Twice a day Active doxazosin 4 mg oral tablet (20 sources) alpha-Adrenergic Ranjit Start: 01-08-2024 take 6 mg by mouth twice daily Doxazosin 4 mg tablet Active 6 MG PO Twice daily January 08, 2024 1:05pm Complies with drug therapy Start: 09-25-2023 End: 01-08-2024 take 6 mg by mouth twice daily Doxazosin Active 6 MG P O Twice daily January 08, 2024 1:05pm Start: 10-24-2022 End: 01-08-2024 doxazosin (Cardura) 4 MG tab let TAKE 1 AND 1/2 TABLETS BY MOUTH TWICE DAILY FOR 90 DAYS 10/24/2022 Active ergocalciferol 1.25 mg oral capsule (20 sources) Provitamin D2 Compound Start: 07-29-2024 Ergocalciferol (Bri min D2) 1,250 mcg (50,000 unit) capsule Active 78871 UNIT PO .COMPLEX July 29, 2024 7:32pm 50,000 units orally every other week; Complies with drug therapy Start: 09-25-2023 End: 07-29-2024 take 1 capsule by mouth every week Ergocalciferol (Vitamin D2) 1,250 mcg (50,000 unit) capsule Discontinued 24009 UNIT PO EVERY 2 WEEKS September 25, 2023 12:00am July 29, 2024 7:33pm FreeTextSig: TAKE 1 CAPSULE BY MOUTH ONE TIME PER WEEK; Note: Source Status: Start; Refills: 2; Qty: 12 Capsule; Provider: Mary Grace Bean ( ) [facility] 1 [facility] by [facility] Vitamin D (Ergocalciferol) 1.25 MG (98043 UT) TAKE 1 CAPSULE BY MOUTH ONE TIME PER WEEK for 84 Active take 1 capsule by [facility] every other week Ergocalciferol 1.25 MG (49887 UT) 1 capsule Orally Q2 week for 90 days Active ferrous sulfate 325 mg oral tablet (20 sources) Start: 09-19-2024 take 1 tablet by mouth every other day Ferrous Sulfate 325 mg (65 mg iron) tablet Active 0 .ROUTE .COMPLEX September 19, 2024 1:26pm TAKE ONE TABLET BY MOUTH EVERY OTHER DAY FOR 90 DAYS Complies with drug therapy Start: 09-03-2024 End: 09-19-2024 Ferrous Sulfate 325 mg (65 m g iron) tablet Discontinued 325 MG PO Every 48 hours September 03, 2024 4:40pm September 19, 2024 1:26pm Start: 09-06-2023 End: 09-03-2024 take 1 tablet by mouth every other day Ferrous Sulfate 325 mg (65 mg iron) tablet Discontinued 0 .ROUTE .COMPLEX March 12, 2024 9:48am September 03, 2024 4:42pm TAKE ONE TABLET BY MOUTH EVERY OTHER DAY FOR 90 DAYS Start: 09-06-2023 [facility] Ferrous Sulfate Active 0 [...] Active fluocinolone acetonide 0.19 mg drug implant (5 sources) Corticosteroid fluocinolone (Iluvien) 0.19 MG implant as directed Intravitreal Active hydrALAZINE hydrochloride 25 mg oral tablet (20 sources) Arteriolar Vasodilator Start: 09-25-19 End: 01-08-20 take 1 tablet by mouth three times daily Hydralazine 25 mg tablet Active 25 MG PO Three times daily January 08, 2024 1:09pm Complies with drug therapy Start: 08-11-2022 take 1 tablet by yossi [...] ml insulin glargine 100 unt/ml pen injector (9 sources) Insulin Analog Start: 09-25-2023 End: 09-03-2024 Insulin Glargine (Basaglar Kwikpen U-100 Insulin) 100 unit/mL (3 mL) insulin pen Active 15 UNIT SUBCUT Three times daily as needed September 03, 2024 4:41pm Complies with drug therapy Iron (3 sources) Iron 325 (65 Fe) MG TAKE 1 TABLET BY MOUTH EVERY OTHER DAY Orally EVERY OTHER DAY for 90 days Active take 1 tablet by mouth every oth er day Iron 325 (65 Fe) MG TAKE 1 TABLET BY MOUTH EVERY OTHER DAY for 90 Active 24 hr isosorbide mononitrate 30 mg extended release oral tablet (5 sources) Nitrate Vasodilator Start: 08-17-2023 take 1 tablet by mouth once daily in the morning isosorbide mononitrate ER (Imdur) 30 MG 24 hr tablet TAKE 1 TABLET BY MOUTH EVERY MORNING *DO NOT CRUSH OR CHEW* 08/17/2023 Active isosorbide dinitrate 30 mg oral tablet (15 sources) Nitrate Vasodilator Start: 09-25-2023 isosorbide dinitrate (Isordil) 30 MG tablet Daily 09/25/2023 Active take 1 tablet by yossi th every twenty-four hours Isosorbide Dinitrate 30 MG 1 tablet Orally ONCE A DAY Active take 1 tablet by yossi th every twenty-four hours Isosorbide Dinitrate 40 MG 1 tablet Orally ONCE A DAY Active latanoprost 0.05 mg/ml ophthalmic solution (17 sources) Prostaglandin Analog latanoprost (Xalatan) 0.005 % [...] Ophthalmic Once a day Active levothyroxine sodium 0.075 mg oral tablet (20 sources) l-Thyroxine Start: 01-29-2025 take 1 tablet by mouth once daily Levothyroxine 75 mcg tablet Active 75 MCG PO Daily January 29, 2025 12:00am Complies with drug therapy Start: 09-25-2023 End: 01-29-2025 take 1 tablet by mouth once daily Levothyroxine 50 mcg tablet Discontinued 50 MCG PO Daily September 03, 2024 4:42pm January 29, 2025 11:40am take 1 tablet by yossi th once [...] Active liothyronine sodium 0.005 mg oral tablet (5 sources) l-Triiodothyronine Start: 08-11-2023 take 2 tablets by mouth once daily liothyronine (Cytomel) 5 MCG tablet TAKE 2 TABLETS BY MOUTH ONCE A DAY 08/11/2023 Active metOLazone 2.5 mg oral tablet (20 sources) Thiazide-like Diuretic Start: 09-25-2023 Metolazone 2.5 mg tablet Active 2.5 MG PO Every 48 hours as needed September 25, 2023 12:00am FreeTextSi tablet Orally MONDAY, MONDAY, MONDAY NEEDED; Note: Source Status: Taking; Provider: Mary Grace Bean ( ) Complies with drug therapy take 1 tablet by mouth two times weekly metOLazone (Zaroxolyn) 2.5 MG tablet TAKE 1 TABLET BY MOUTH TWICE WEEKLY Active metOLazone 2.5 M G 1 tablet Orally MONDAY, MONDAY, MONDAY NEEDED Active metoprolol tartrate 50 mg oral tablet (20 sources) beta-Adrenergic Ranjit Start: 01-08-2024 Metopr olol Tartrate 50 mg tablet Active 75 MG PO Twice daily January 08, 2024 1:07pm Complies with drug therapy Start: 09-25-2023 End: 01-08-2024 Metoprolol Tartrate 50 mg ta blet Discontinued MG PO September 25, 2023 12:00am January 08, 2024 1:08pm FreeTextSi 1/2 tablet with food Orally Twice [...] Active midodrine hydrochloride 5 mg oral tablet (9 sources) alpha-Adrenergic Agonist Start: 01-08-2024 take 1 tablet by mouth three times daily as needed Midodrine 5 mg tablet Active 5 MG PO Three times daily as needed January 08, 2024 12:00am Complies with drug therapy nitroglycerin 0.4 mg sublingual tablet (5 sources) Nitrate Vasodilator nitroglyceri n (Nitrostat) 0.4 [...] End: 11-16-2023 take 2 tablets by mouth in the morning, then take 2 tablets by mouth in the evening, then take 2 tablets by mouth at bedtime potassium chloride CR (K-Tab) 20 MEQ ER tablet Take 40 mEq by mouth in the morning and 40 mEq in the evening and 40 mEq before bedtime. 04/10/2023 Active Klor-Con M20 20 MEQ TAKE 2 TABLETS BY MOUTH IN THE MORNING, 2 TABLETS AT NOON, AND 1 TABLET IN THE EVENING for 90 Active take 2 tablets by mo ut every twelve hours Potassium Chloride ER 20 MEQ 2 Tablet Orally bid for 90 days Active Problems Active Problems Problem Classification Problem Date Documented Date Episodic/Chronic Chronic kidney disease (20 sources) Chronic kidney disease stage 4; Translations: [Chronic kidney disease, stage 4 (severe)] Onset: 1 Resolved: 2 Chronic Congestive heart failure; nonhypertensive (13 sources) Chronic diastolic (congestive) heart failure; Translations: [Acute combined systolic (congestive) and diastolic (congestive) heart failure] Onset: 2 Chronic Coronary atherosclerosis and other heart disease (3 sources) Atherosclerotic heart disease of [place] coronary artery without angina pectoris; Translations: [ASHD [facility] CA W/O ANGINA PECTORIS] Onset: 2 Chronic Coronary atherosclerosis and other [...] Resolved: 2 Chronic Disorders of lipid metabolism (9 sources) Hyperlipidemia; Translations: [Hyperlipidemia, unspecified] 09-25-2023 Chronic Essential hypertension (7 sources) Essential (primary) hypertension; Translations: [ESSENTIAL PRIMARY HYPERTENSION] Onset: 2 Chronic Fluid and electrolyte disorders (20 sources) Hypokalemia; Translations: [Hypokalemia] Onset: 1 Resolved: 2 Episodic Genitourinary symptoms and ill-defined conditions (17 sources) Other microscopic hematuria; Translations: [Microscopic hematuria] Onset: 1 Resolved: 2 Episodic Glaucoma (8 sources) Primary open angle glaucoma; Translations: [Primary [...] Episodic Other nutritional; endocrine; and metabolic disorders (6 sources) Hyperuricemia; Translations: [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 [...] STRUCT RT FORARM] Onset: 06-04-2022 Episodic Other eye disorders (7 sources) Scar of cornea of right eye; Translations: [Unspecified corneal scar and opacity] Onset: 05-08-2023 05-08-2023 Episodic Other eye disorders (7 sources) Dry eyes; Translations: [Dry eye syndrome of bilateral lacrimal glands] Onset: 05-08-2023 05-08-2023 Episodic Other lower respiratory disease (5 sources) [...] Value Interpretation Reference Range Facility Office Visiton 04-07-2025 Follow-up visit [id number] Claudia Estrella 1950 F Date Provider Department Center 04/07/2025 KARTHIK MACKAY AD[facility] Family History Problem Relation Age of Onset Heart attack Mother Heart failure Mother Heart attack Father Family Status - Relation Status Age at Mother Father Level of Service:02493 NE OFFICE/OUTPATIENT ESTABLISHED MOD MDM 30 MIN Normal [facility] Erythrocyte distribution wid th Auto (RBC) [Ratio]Ordered By: Geneva Jenkins on 01-20-2025 Erythrocyte distribution width (RBC) [Ratio] 13.7 % 11.0-15.0 [facility] Estimated glomerular filtrat ion rate (GFR) non- AmericanOrdered By: Geneva Jenkins on 01-20-2025 GFR/1.73 sq M.predicted among non-blacks MDRD (S/P/Bld) [Vol rate/Area] 20 mL/min/{1.73_m2} Low >=60 mL/min/1.73m 2 [facility] Hematocrit Auto (Bld) [Volum e fraction]Ordered By: Geneva Jenkins on 01-20-2025 Hematocrit (Bld) [Volume fraction] 32.6 % Low 36.0-48.0 [facility] Hemoglobin [Mass/volume] in BloodOrdered By: Geneva Jenkins on 01-20-2025 Hemoglobin (Bld) [Mass/Vol] 11.1 g/dL Low 12.0-16.0 [facility] Iron binding capacity [Mass/ volume] in Serum or PlasmaOrdered By: Geneva Jenkins on 01-20-2025 Iron binding capacity [Mass/Vol] 279.0 ug/dL 250.0-450.0 [facility] Iron saturation [Mass Fracti on] in Serum or PlasmaOrdered By: Geneva Jenkins on 01-20-2025 Iron saturation [Mass fraction] 17.9 % [facility] Laboratory - Chemistry and C hemistry - challengeOrdered By: Geneva Jenkins on 01-20-2025 Albumin [Mass/Vol] 3.2 g/dL Low 3.4-5.0 [facility] Calcium [Mass/Vol] 9.2 mg/dL 8.5-10.1 [facility] Chloride [Moles/Vol] 105 mmol/L 98-107 [facility] CO2 [Moles/Vol] 25.4 mmol/L 21.0-32.0 [facility] Creatinine [Mass/Vol] 2.33 mg/dL High 0.55-1.02 [facility] GFR/1.73 sq M.predicted MDRD (S/P/Bld) [Vol rate/Area] 25 mL/min/{1.73_m2} Low >=60 mL/min/1.73m 2 [facility] Glucose [Mass/Vol] 158 mg/dL High 74-106 [facility] Iron [Mass/Vol] 50.0 ug/dL 50.0-170.0 [facility] Magnesium [Mass/Vol] 2.1 mg/dL 1.8-2.4 [facility] Potassium [Moles/Vol] 4.2 mmol/L 3.5-5.1 [facility] Sodium [Moles/Vol] 142 mmol/L 136-145 [facility] Urate [Mass/Vol] 5.4 mg/dL 2.6-6.0 [facility] Urea nitrogen [Mass/Vol] 50.0 mg/dL High 7.0-18.0 [facility] Urea nitrogen/Creatinine [Mass ratio] 21.5 mg/mg [facility] Bilirubin Ql (U) Negative NEGATIVE [facility] Glucose (U) [Mass/Vol] Negative NEGATIVE [facility] Ketones Ql (U) Negative NEGATIVE [facility] pH (U) 6.0 [pH] 5.0-9.0 [facility] Specific gravity (U) [Rel density] 1.020 1.005-1.025 [facility] Urobilinogen Qn (U) 0.2 {Kelly'U}/dL 0.2-1.0 [facility] Laboratory - Specimen inform ationOrdered By: Geneva Jenkins on 01-20-2025 Appearance (U) CLEAR CLEAR [facility] Color (U) LT. YELLOW YELLOW [facility] Laboratory - UrinalysisOrder ed By: Geneva Jenkins on 01-20-2025 Leukocyte esterase Test strip Ql (U) TRACE Abnormal NEGATIVE [facility] Mucus Ql (Urine sed) TRACE Abnormal NONE SEEN [facility] Nitrite Ql (U) Negative NEGATIVE [facility] Protein (U) [Mass/Vol] 167.6 mg/dL High <=11.9 F [facility] Protein Ql (U) >=300 mg/dL Abnormal NEG/TRACE [facility] Leukocytes [#/volume] correc stacy for nucleated erythrocytes in Blood by Automated counOrdered By: Geneva Jenkins on 01-20-2025 WBC corrected for nucl RBC Auto (Bld) [#/Vol] 9.0 10 3/uL 4.0-11.0 [facility] MCH Auto (RBC) [Entitic mass ]Ordered By: Geneva Jenkins on 01-20-2025 MCH (RBC) [Entitic mass] 29.8 pg 26.7-34.0 [facility] MCHC Auto (RBC) [Mass/Vol]Or dered By: Geneva Jenkins on 01-20-2025 MCHC (RBC) [Mass/Vol] 34.0 g/dL 29.9-35.2 [facility]ir [facility] MCV Auto (RBC) [Entitic vol] Ordered By: Geneva Jenkins on 01-20-2025 MCV (RBC) [Entitic vol] 87.4 fL 81.0-99.0 [facility] No Panel InformationOrdered By: Geneva Jenkins on 01-20-2025 25-Hydroxy Vitamin D Total 46.0 ng/mL [facility] Comment on above: <20 ng/mL Vit D defi cient20-<30 ng/mL Vit D [id number] ng/mL Vit D sufficient>100 ng/mL Potential Toxicity Miscellaneous Test COMMENT . [facility] Comment on above: Test Ordered: [id number] FerritinFerritin 153 [H ] ng/mL Reference Range: 15-150Performed at: CB - [facility] [address] [id number] Director: Curry Rizzo PhD, Phone: [phone] Parathyroid Hormone (Intact) 58 pg/mL 15-65 [facility] Comment on above: Performed at: CB - [facility] [address] [id number] Director: Curry Rizzo PhD, Phone: [phone] Phosphorus Level 4.6 mg/dL 2.6-4.7 [facility] Urine Bacteria TRACE #/HPF Abnormal NONE SEEN [facility] Urine Occult Blood TRACE-I NEGATIVE [facility] Urine Other Casts NONE SEEN #/LPF NONE SEEN [facility] Urine Other Crystals None Seen #/HPF None Seen [facility] Urine Random Creatinine 30.76 mg/dL 20.00-300.0 0 [facility] Urine RBC 2-5 #/HPF Abnormal 0-2 [facility] Urine Squamous Epithelial Cells FEW #/LPF Abnormal NONE/RARE [facility] Urine WBC 0-2 #/HPF Abnormal NONE SEEN [facility] Platelet mean volume Auto (B ld) [Entitic vol]Ordered By: Geneva Jenkins on 01-20-2025 Platelet mean volume (Bld) [Entitic vol] 10.6 fL 9.5-13.5 [facility] Platelets Auto (Bld) [#/Vol] Ordered By: Geneva Jenkins on 01-20-2025 Platelets (Bld) [#/Vol] 177 10 3/uL 150-450 [facility] RBC Auto (Bld) [#/Vol]Ordere d By: Geneva Jenkins on 01-20-2025 RBC (Bld) [#/Vol] 3.73 10 6/uL Low 4.20-5.40 [facility] Serum or plasma anion gap de terminationOrdered By: Geneva Jenkins on 01-20-2025 Anion gap [Moles/Vol] 15.8 mmol/L [facility] Urine protein/creatinine rat ioOrdered By: Geneva Jenkins on 01-20-2025 Protein/Creatinine (U) [Ratio] 5.45 [facility] Perimetry studyon 11-26-2024 [facility] Radiology Study observation (narrative) [facility] 36on 11-06-2024 36 Regarding echo result from 10/04/2024: MD Michelle Tan MA Please tell her the echo showed normal cardiac function with evidence of extra fluid in the body. Depending on symptoms of shortness of breath, she can take extra 0.5 tablet of bumex on as needed basis. Follow up as planned. Patient informed. She verbalized understanding. Normal [facility] Office Visiton 09-16-2024 Follow-up visit [id number] Claudia Estrella 1950 F Date Provider Department Center 09/16/2024 KARTHIK MACKAY [facility] Family History Problem Relation Age of Onset Heart attack Mother Heart failure Mother Heart attack Father Family Status - Relation Status Age at Mother Father Level of Service:47846 NE OFFICE/OUTPATIENT ESTABLISHED MOD MDM 30 MIN Normal [facility] Erythrocyte distribution wid th Auto (RBC) [Ratio]on 08-26-2024 Erythrocyte distribution width (RBC) [Ratio] Erythrocyte distribution width [Ratio] by Automated count 11.0-15.0 [facility] Estimated glomerular filtrat ion rate (GFR) non- Americanon 08-26-2024 GFR/1.73 sq M.predicted among non-blacks MDRD (S/P/Bld) [Vol rate/Area] Estimated glomerular filtration rate (GFR) non- Low >=60 mL/min/1.73m 2 [facility] Hematocrit Auto (Bld) [Volum e fraction]on 08-26-2024 Hematocrit (Bld) [Volume fraction] Hematocrit [Volume Fraction] of Blood by Automated count Low 36.0-48.0 [facility] Hemoglobin [Mass/volume] in Bloodon 08-26-2024 Hemoglobin (Bld) [Mass/Vol] Hemoglobin [Mass/volume] in Blood Low 12.0-16.0 [facility] Iron binding capacity [Mass/ volume] in Serum or Plasmaon 08-26-2024 Iron binding capacity [Mass/Vol] Iron binding capacity [Mass/volume] in Serum or Plasma Low 250.0-450.0 [facility] Iron saturation [Mass Fracti on] in Serum or Plasmaon 08-26-2024 Iron saturation [Mass fraction] Iron saturation [Mass Fraction] in Serum or Plasma [facility] Laboratory - Chemistry and C hemistry - challengeon 08-26-2024 Albumin [Mass/Vol] 3.4 g/dL 3.4-5.0 [facility] Calcium [Mass/Vol] 9.3 mg/dL 8.5-10.1 [facility] Chloride [Moles/Vol] 100 mmol/L 98-107 [facility] CO2 [Moles/Vol] 28.1 mmol/L 21.0-32.0 [facility] Creatinine [Mass/Vol] 2.44 mg/dL High 0.55-1.02 [facility] Ferritin [Mass/Vol] 145.0 ng/mL 8.0-252.0 [facility] GFR/1.73 sq M.predicted MDRD (S/P/Bld) [Vol rate/Area] 24 mL/min/{1.73_m2} Low >=60 mL/min/1.73m 2 [facility] Glucose [Mass/Vol] 162 mg/dL High 74-106 [facility] Iron [Mass/Vol] 53.0 ug/dL 50.0-170.0 [facility] Magnesium [Mass/Vol] 2.0 mg/dL 1.8-2.4 [facility] Potassium [Moles/Vol] 3.2 mmol/L Low 3.5-5.1 [facility] Sodium [Moles/Vol] 140 mmol/L 136-145 [facility] Urate [Mass/Vol] 6.3 mg/dL High 2.6-6.0 [facility] Urea nitrogen [Mass/Vol] 46.0 mg/dL High 7.0-18.0 [facility] Urea nitrogen/Creatinine [Mass ratio] 18.9 mg/mg [facility] Laboratory - Urinalysison Protein (U) [Mass/Vol] 197.4 mg/dL High <=11.9 F [facility] Leukocytes [#/volume] correc stacy for nucleated erythrocytes in Blood by Automated counon 08-26-2024 WBC corrected for nucl RBC Auto (Bld) [#/Vol] Leukocytes [#/volume] corrected for nucleated erythrocytes in Blood by Automated coun 4.0-11.0 [facility] MCH Auto (RBC) [Entitic mass ]on 08-26-2024 MCH (RBC) [Entitic mass] MCH [Entitic ma ss] by Automated count 26.7-34.0 [facility] MCHC Auto (RBC) [Mass/Vol]on 08-26-2024 MCHC (RBC) [Mass/Vol] MCHC [Mass/volume] by Automated count 29.9-35.2 [facility] MCV Auto (RBC) [Entitic vol] on 08-26-2024 MCV (RBC) [Entitic vol] MCV [Entitic vol ume] by Automated count 81.0-99.0 [facility] No Panel Informationon 08-26 25-Hydroxy Vitamin D Total 51.6 ng/mL [facility] Comment on above: <20 ng/mL Vit D defi cient20-<30 ng/mL Vit D [id number] ng/mL Vit D sufficient>100 ng/mL Potential Toxicity Parathyroid Hormone (Intact) 78 pg/mL Abnormal 15-65 [facility] Comment on above: Performed at: - [facility] [id number] Director: Curry Rizzo PhD, Phone: [phone] Phosphorus Level 5.4 mg/dL High 2.6-4.7 [facility] Urine Random Creatinine 39.10 mg/dL 20.00-300.0 0 [facility] Platelet mean volume Auto (B ld) [Entitic vol]on 08-26-2024 Platelet mean volume (Bld) [Entitic vol] Platelet mean volume [Entitic volume] in Blood by Automated count 9.5-13.5 [facility] Platelets Auto (Bld) [#/Vol] on 08-26-2024 Platelets (Bld) [#/Vol] Platelets [#/vol ume] in Blood by Automated count 150-450 [facility] RBC Auto (Bld) [#/Vol]on RBC (Bld) [#/Vol] Erythrocytes [#/volume] in Blood by Automated count Low 4.20-5.40 [facility] Serum or plasma anion gap de terminationon 08-26-2024 Anion gap [Moles/Vol] Serum or plasma anion gap determination [facility] Urine protein/creatinine rat ioon 08-26-2024 Protein/Creatinine (U) [Ratio] Urine protein/creatinine ratio [facility] Ophthalmic OCT panelon 05-15 [facility] Right Eye Images reviewed and comparison [...] layer (NFL) thinning both eyes (OU). Stable. [facility] Radiology Study observation (narrative) [facility] Optical coherence tomography study reporton 05-15-2024 [facility] Radiology Study observation (narrative) [facility] Erythrocyte distribution wid th Auto (RBC) [Ratio]on 05-09-2024 Erythrocyte distribution width (RBC) [Ratio] Erythrocyte distribution width [Ratio] by Automated count High 11.0-15.0 [facility] Estimated glomerular filtrat ion rate (GFR) non- Americanon 05-09-2024 GFR/1.73 sq M.predicted among non-blacks MDRD (S/P/Bld) [Vol rate/Area] Estimated glomerular filtration rate (GFR) non- Low >=60 mL/min/1.73m 2 [facility] Hematocrit Auto (Bld) [Volum e fraction]on 05-09-2024 Hematocrit (Bld) [Volume fraction] Hematocrit [Volume Fraction] of Blood by Automated count Low 36.0-48.0 [facility] Hemoglobin [Mass/volume] in Bloodon 05-09-2024 Hemoglobin (Bld) [Mass/Vol] Hemoglobin [Mass/volume] in Blood Low 12.0-16.0 [facility] Iron binding capacity [Mass/ volume] in Serum or Plasmaon 05-09-2024 Iron binding capacity [Mass/Vol] Iron binding capacity [Mass/volume] in Serum or Plasma 250.0-450.0 [facility] Iron saturation [Mass Fracti on] in Serum or Plasmaon 05-09-2024 Iron saturation [Mass fraction] Iron saturation [Mass Fraction] in Serum or Plasma [facility] Laboratory - Chemistry and C hemistry - challengeon 05-09-2024 Albumin [Mass/Vol] 3.3 g/dL Low 3.4-5.0 [facility] Calcium [Mass/Vol] 9.2 mg/dL 8.5-10.1 [facility] Chloride [Moles/Vol] 103 mmol/L 98-107 [facility] CO2 [Moles/Vol] 25.9 mmol/L 21.0-32.0 [facility] Creatinine [Mass/Vol] 2.24 mg/dL High 0.55-1.02 [facility] Ferritin [Mass/Vol] 151.0 ng/mL 8.0-252.0 [facility] GFR/1.73 sq M.predicted MDRD (S/P/Bld) [Vol rate/Area] 26 mL/min/{1.73_m2} Low >=60 mL/min/1.73m 2 [facility] Glucose [Mass/Vol] 169 mg/dL High 74-106 [facility] Iron [Mass/Vol] 41.0 ug/dL Low 50.0-170.0 [facility] Magnesium [Mass/Vol] 2.0 mg/dL 1.8-2.4 [facility] Potassium [Moles/Vol] 3.6 mmol/L 3.5-5.1 [facility] Sodium [Moles/Vol] 141 mmol/L 136-145 [facility] Urate [Mass/Vol] 5.1 mg/dL 2.6-6.0 [facility] Urea nitrogen [Mass/Vol] 44.0 mg/dL High 7.0-18.0 [facility] Urea nitrogen/Creatinine [Mass ratio] 19.6 mg/mg [facility] Bilirubin Ql (U) Negative NEGATIVE [facility] Glucose (U) [Mass/Vol] Negative NEGATIVE [facility] Ketones Ql (U) Negative NEGATIVE [facility] pH (U) 5.5 [pH] 5.0-9.0 [facility] Specific gravity (U) [Rel density] 1.020 1.005-1.025 [facility] Urobilinogen Qn (U) 0.2 {Kelly'U}/dL 0.2-1.0 [facility] Laboratory - Specimen inform ationon 05-09-2024 Appearance (U) CLEAR CLEAR [facility] Color (U) LT. YELLOW YELLOW [facility] Laboratory - Urinalysison Hyaline casts LM Ql (Urine sed) RARE [facility] Leukocyte esterase Test strip Ql (U) MODERATE Abnormal NEGATIVE [facility] Mucus Ql (Urine sed) TRACE Abnormal NONE SEEN [facility] Nitrite Ql (U) Negative NEGATIVE [facility] Protein (U) [Mass/Vol] 122.0 mg/dL High <=11.9 [facility] Protein Ql (U) 100 mg/dL Abnormal NEG/TRACE [facility] Leukocytes [#/volume] correc stacy for nucleated erythrocytes in Blood by Automated counon 05-09-2024 WBC corrected for nucl RBC Auto (Bld) [#/Vol] Leukocytes [#/volume] corrected for nucleated erythrocytes in Blood by Automated coun 4.0-11.0 [facility] MCH Auto (RBC) [Entitic mass ]on 05-09-2024 MCH (RBC) [Entitic mass] MCH [Entitic ma ss] by Automated count 26.7-34.0 [facility] MCHC Auto (RBC) [Mass/Vol]on 05-09-2024 MCHC (RBC) [Mass/Vol] MCHC [Mass/volume] by Automated count 29.9-35.2 [facility] MCV Auto (RBC) [Entitic vol] on 05-09-2024 MCV (RBC) [Entitic vol] MCV [Entitic vol ume] by Automated count 81.0-99.0 [facility] No Panel Informationon 05-09 25-Hydroxy Vitamin D Total 56.3 ng/mL [facility] Comment on above: <20 ng/mL Vit D defi cient20-<30 ng/mL Vit D [id number] ng/mL Vit D sufficient>100 ng/mL Potential Toxicity Parathyroid Hormone (Intact) 9 pg/mL Abnormal 15-65 [facility] Comment on above: Performed at: - [address] [id number] Director: Curry Rizzo PhD, Phone: [phone] Phosphorus Level 4.8 mg/dL High 2.6-4.7 [facility] Urine Bacteria SMALL #/HPF Abnormal NONE SEEN [facility] Urine Occult Blood Negative NEGATIVE [facility] Urine Other Casts SEEN #/LPF Abnormal NONE SEEN [facility] Urine Other Crystals None Seen #/HPF None Seen [facility] Urine Random Creatinine 62.86 mg/dL 20.00-300.0 0 [facility] Urine RBC 0-2 #/HPF 0-2 [facility] Urine Squamous Epithelial Cells MODERATE #/LPF Abnormal NONE/RARE [facility] Urine WBC 2-5 #/HPF Abnormal NONE SEEN [facility] Platelet mean volume Auto (B ld) [Entitic vol]on 05-09-2024 Platelet mean volume (Bld) [Entitic vol] Platelet mean volume [Entitic volume] in Blood by Automated count 9.5-13.5 [facility] Platelets Auto (Bld) [#/Vol] on 05-09-2024 Platelets (Bld) [#/Vol] Platelets [#/vol ume] in Blood by Automated count 150-450 [facility] RBC Auto (Bld) [#/Vol]on RBC (Bld) [#/Vol] Erythrocytes [#/volume] in Blood by Automated count Low 4.20-5.40 [facility] Serum or plasma anion gap de terminationon 05-09-2024 Anion gap [Moles/Vol] Serum or plasma anion gap determination [facility] Urine protein/creatinine rat ioon 05-09-2024 Protein/Creatinine (U) [Ratio] Urine protein/creatinine ratio [facility] Albumin [Mass/volume] in Ser um or Plasmaon 01-01-2024 Albumin [Mass/Vol] 3.5 g/dL 2.9-4.4 [facility] Erythrocyte distribution wid th Auto (RBC) [Ratio]on 01-01-2024 Erythrocyte distribution width (RBC) [Ratio] 15.2 % High 11.0-15.0 [facility] Estimated glomerular filtrat ion rate (GFR) non- Americanon 01-01-2024 GFR/1.73 sq M.predicted among non-blacks MDRD (S/P/Bld) [Vol rate/Area] 21 mL/min/{1.73_m2} Low >=60 [facility] Hematocrit Auto (Bld) [Volum e fraction]on 01-01-2024 Hematocrit (Bld) [Volume fraction] 32.4 % Low 36.0-48.0 [facility] Hemoglobin [Mass/volume] in Bloodon 01-01-2024 Hemoglobin (Bld) [Mass/Vol] 10.4 g/dL Low 12.0-16.0 [facility] IgA [Mass/volume] in Serum o r Plasmaon 01-01-2024 IgA [Mass/Vol] 580 mg/dL Abnormal 64-422 [facility] IgG [Mass/volume] in Serum o r Plasmaon 01-01-2024 IgG [Mass/Vol] 1132 mg/dL [id number] [facility] IgM [Mass/volume] in Serum o r Plasmaon 01-01-2024 IgM [Mass/Vol] 155 mg/dL 26-217 [facility] Immunofixation for Urineon 0 01-01-2024 Interpretation Immunofixation (U) [Interp] Comment . [facility] Comment on above: No monoclonality det ected.Performed at: - [facility] [address] [id number] Director: Curry Rizzo PhD, Phone: [phone] Immunoglobulin light chains. kappa.free [Mass/volume] in Serumon 01-01-2024 Immunoglobulin light chains.kappa.free (S) [Mass/Vol] 75.5 mg/L Abnormal 3.3-19.4 [facility] Immunoglobulin light chains. kappa.free/Immunoglobulin light chains.lambda.free [Priscilla 01-01-2024 Immunoglobulin light chains.kappa.free/Immuno globulin light chains.lambda.free (S) [Mass ratio] 1.25 0.26-1.65 [facility] Comment on above: Performed at: [facility] [place] [address] [id number] Director: Curry Rizzo PhD, Phone: [phone] Immunoglobulin light chains. lambda.free [Mass/volume] in Serum or Plasmaon 01-01-2024 Immunoglobulin light chains.lambda.free [Mass/Vol] 60.4 mg/L Abnormal 5.7-26.3 [facility] Iron binding capacity [Mass/ volume] in Serum or Plasmaon 01-01-2024 Iron binding capacity [Mass/Vol] 266.0 ug/dL 250.0-450.0 [facility] Iron saturation [Mass Fracti on] in Serum or Plasmaon 01-01-2024 Iron saturation [Mass fraction] 16.2 % [facility] Laboratory - Chemistry and C hemistry - challengeon 01-01-2024 Albumin [Mass/Vol] 3.3 g/dL Low 3.4-5.0 [facility] Calcium [Mass/Vol] 9.2 mg/dL 8.5-10.1 [facility] Chloride [Moles/Vol] 103 mmol/L 98-107 [facility] CO2 [Moles/Vol] 27.3 mmol/L 21.0-32.0 [facility] Creatinine [Mass/Vol] 2.28 mg/dL High 0.55-1.02 [facility] Ferritin [Mass/Vol] 123.0 ng/mL 8.0-252.0 [facility] GFR/1.73 sq M.predicted MDRD (S/P/Bld) [Vol rate/Area] 26 mL/min/{1.73_m2} Low >=60 [facility] Glucose [Mass/Vol] 139 mg/dL High 74-106 [facility] Iron [Mass/Vol] 43.0 ug/dL Low 50.0-170.0 [facility] Magnesium [Mass/Vol] 2.3 mg/dL 1.8-2.4 [facility] Potassium [Moles/Vol] 4.4 mmol/L 3.5-5.1 [facility] Sodium [Moles/Vol] 138 mmol/L 136-145 [facility] Urate [Mass/Vol] 5.9 mg/dL 2.6-6.0 [facility] Urea nitrogen [Mass/Vol] 50.0 mg/dL High 7.0-18.0 [facility] Urea nitrogen/Creatinine [Mass ratio] 21.9 mg/mg [facility] Laboratory - Urinalysison Protein (U) [Mass/Vol] 93.2 mg/dL High <=11.9 [facility] Leukocytes [#/volume] correc stacy for nucleated erythrocytes in Blood by Automated counon 01-01-2024 WBC corrected for nucl RBC Auto (Bld) [#/Vol] 8.9 10 3/uL 4.0-11.0 [facility] MCH Auto (RBC) [Entitic mass ]on 01-01-2024 MCH (RBC) [Entitic mass] 27.4 pg 26.7-34.0 [facility] MCHC Auto (RBC) [Mass/Vol]on 01-01-2024 MCHC (RBC) [Mass/Vol] 32.1 g/dL 29.9-35.2 [facility] MCV Auto (RBC) [Entitic vol] on 01-01-2024 MCV (RBC) [Entitic vol] 85.3 fL 81.0-99.0 F [facility] No Panel Informationon 12-31 25-Hydroxy Vitamin D Total 53.8 ng/mL [facility] Comment on above: <20 ng/mL Vit D defi cient20-<30 ng/mL Vit D [id number] ng/mL Vit D sufficient>100 ng/mL Potential Toxicity Parathyroid Hormone (Intact) 95 pg/mL Abnormal 15-65 [facility] Comment on above: [facility]formed [facility] [address] [id number] Director: Curry Rizzo PhD, Phone: [phone] Phosphorus Level 4.0 mg/dL 2.6-4.7 [facility] Protein Electrophoresis M-Edward Not Observed g/dL Not Observed [facility] Protein Electrophoresis Note Comment . [facility] Comment on above: Protein electrophore sis scan will follow via computer,mail, or director of education delivery. Urine Random Creatinine 88.24 mg/dL 20.00-300.0 0 [facility] Platelet mean volume Auto (B ld) [Entitic vol]on 01-01-2024 Platelet mean volume (Bld) [Entitic vol] 10.9 fL 9.5-13.5 [facility] Platelets Auto (Bld) [#/Vol] on 01-01-2024 Platelets (Bld) [#/Vol] 184 10 3/uL 150-450 [facility] Protein [Mass/volume] in Ser um or Plasmaon 01-01-2024 Protein [Mass/Vol] 7.0 g/dL 6.0-8.5 [facility] RBC Auto (Bld) [#/Vol]on RBC (Bld) [#/Vol] 3.80 10 6/uL Low 4.20-5.40 [facility] Serum globulin measurement ( mass/volume)on 01-01-2024 Globulin (S) [Mass/Vol] 3.5 g/dL 2.2-3.9 [facility] Serum or plasma albumin/glob ulin mass ratioon 01-01-2024 Albumin/Globulin [Mass ratio] 1.1 {ratio} 0.7-1.7 [facility] Serum or plasma alpha 1 glob ulin measurement by electrophoresis (mass/volume)on 01-01-2024 Alpha 1 globulin Elph [Mass/Vol] 0.3 g/dL 0.0-0.4 [facility] Serum or plasma alpha 2 glob ulin measurement by electrophoresis (mass/volume)on 01-01-2024 Alpha 2 globulin Elph [Mass/Vol] 0.9 g/dL 0.4-1.0 [facility] Serum or plasma anion gap de terminationon 01-01-2024 Anion gap [Moles/Vol] 12.1 mmol/L Fi [facility] Serum or plasma beta globuli n measurement by electrophoresis (mass/volume)on 01-01-2024 Beta globulin Elph [Mass/Vol] 1.1 g/dL 0.7-1.3 [facility] Serum or plasma gamma globul in measurement by electrophoresis (mass/volume)on 01-01-2024 Gamma globulin Elph [Mass/Vol] 1.3 g/dL 0.4-1.8 [facility] Serum or plasma immunoelectr ophoresis interpretationon 01-01-2024 Interpretation IEP [Interp] Comment . [facility] Comment on above: No monoclonality det ected. Urine protein/creatinine rat ioon 01-01-2024 Protein/Creatinine (U) [Ratio] 1.06 [facility] BNPon 10-26-2022 Natriuretic peptide B (Bld) [Mass/Vol] 1458.0 pg/mL Critically high <=900.0 [facility] Comment on above: Performed By: #### L IPID, TSH, FT3 #### [facility] [address] [place] [address] Dr. Andrey Hargrove CBC AUTO DIFFon 10-26-2022 BASO # 0.1 103/ul Normal 0.0-0.1 [facility] Comment on above: Performed By: #### V ITAD, FETIBC, FERR #### [facility] [address] [place] [address] Dr. Andrey Hargrove Basophils/100 WBC (Bld) 0.7 % Normal 0.2-2.0 [facility] Comment on above: Performed By: #### V ITAD, FETIBC, FERR #### [facility] [address] [place] [address] Dr. Andrey Hargrove EO # 0.4 103/ul Normal 0.0-0.7 [facility] Comment on above: Performed By: #### V ITAD, FETIBC, FERR #### [facility] [address] [place] [address] Dr. Andrey Hargrove Eosinophils/100 WBC (Bld) 4.6 % Normal 0.9-7.0 [facility] Comment on above: Performed By: #### V ITAD, FETIBC, FERR #### [facility] [address] [place] [address] Dr. Andrey Hargrove Erythrocyte distribution width (RBC) [Ratio] 13.7 % Normal 11.0-15.0 [facility] Comment on above: Performed By: #### V ITAD, FETIBC, FERR #### [facility] [address] [place] [address] Dr. Andrey Hargrove Hematocrit (Bld) [Volume fraction] 35.5 % Critically low 36.0-48.0 [facility] Comment on above: Performed By: #### V ITAD, FETIBC, FERR #### [facility] [address] [place] [address] Dr. Andrey Hargrove Hemoglobin (Bld) [Mass/Vol] 12.0 g/dL Normal 12.0-16.0 [facility] Comment on above: Performed By: #### V ITAD, FETIBC, FERR #### [facility] [address] [place] [address] Dr. Andrey Hargrove IG # 0.02 10e3/ul Normal 0.00-0.03 [facility] Comment on above: Performed By: #### V ITAD, FETIBC, FERR #### [facility] [address] [place] [address] Dr. Andrey Hargrove IG % 0.2 % Normal 0.0-0.5 [facility] Comment on above: Performed By: #### V ITAD, FETIBC, FERR #### [facility] [address] [place] [address] Dr. Andrey Hargrove LYMPH # 1.5 103/ul Normal 1.2-3.8 [facility] Comment on above: Performed By: #### V ITAD, FETIBC, FERR #### [facility] [address] [place] [address] Dr. Andrey Hargrove Lymphocytes/100 WBC (Bld) 18.1 % Critically low 20.5-60.0 [facility] Comment on above: Performed By: #### V ITAD, FETIBC, FERR #### [facility] [address] [place] [address] Dr. Andrey Hargrove MANUAL DIFF REQ NO Normal [facility] Comment on above: Performed By: #### V ITAD, FETIBC, FERR #### [facility] [address] [place] [address] Dr. Andrey Hargrove MCH (RBC) [Entitic mass] 29.3 pg Normal 26.7-34.0 [facility] Comment on above: Performed By: #### V ITAD, FETIBC, FERR #### [facility] [address] [place] [address] Dr. Andrey Hargrove MCHC (RBC) [Mass/Vol] 33.8 g/dL Normal 29.9-35.2 [facility] Comment on above: Performed By: #### V ITAD, FETIBC, FERR #### [facility] [address] [place] [address] Dr. Andrey Hargrove MCV (RBC) [Entitic vol] 86.8 fL Normal 81.0-99.0 [facility] Comment on above: Performed By: #### V ITAD, FETIBC, FERR #### [facility] [address] [place] [address] Dr. Andrey Hargrove MONO # 0.7 103/ul Normal 0.3-0.8 [facility] Comment on above: Performed By: #### V ITAD, FETIBC, FERR #### [facility] [address] [place] [address] Dr. Andrey Hargrove Monocytes/100 WBC (Bld) 7.9 % Normal 1.7-12.0 [facility] Comment on above: Performed By: #### V ITAD, FETIBC, FERR #### [facility] [address] [place] [address] Dr. Andrey Hargrove NEUT # 5.7 103/ul Normal 1.4-6.5 [facility] Comment on above: Performed By: #### V ITAD, FETIBC, FERR #### [facility] [address] [place] [address] Dr. Andrey Hargrove Neutrophils/100 WBC (Bld) 68.5 % Normal 43.0-75.0 [facility] Comment on above: Performed By: #### V ITAD, FETIBC, FERR #### [facility] [address] [place] [address] Dr. Andrey Hargrove Platelet mean volume (Bld) [Entitic vol] 10.4 fL Normal 9.5-13.5 [facility] Comment on above: Performed By: #### V ITAD, FETIBC, FERR #### [facility] [address] [place] [address] Dr. Andrey Hargrove PLT 204 103/ul Normal 150-450 [facility] Comment on above: Performed By: #### V ITAD, FETIBC, FERR #### [facility] [address] [place] [address] Dr. Andrey Hargrove RBC 4.09 106/ul Critically low 4.20-5.40 [facility] Comment on above: Performed By: #### V ITAD, FETIBC, FERR #### [facility] [address] [place] [address] Dr. Andrey Hargrove WBC 8.3 103/ul Normal 4.0-11.0 [facility] Comment on above: Performed By: #### V ITAD, FETIBC, FERR #### [facility] [address] [place] [address] Dr. Andrey Hargrove PROF CHEM 8 (BAS METB)on Anion gap [Moles/Vol] 11.1 mmol/L Normal [facility] Comment on above: Performed By: #### L IPID, TSH, FT3 #### [facility] [address] [place] [address] Dr. Andrey Hargrove Calcium [Mass/Vol] 9.2 mg/dL Normal 8.5-10.1 [facility] Comment on above: Performed By: #### L IPID, TSH, FT3 #### [facility] [address] [place] [address] Dr. Andrey Hargrove Chloride [Moles/Vol] 102 mmol/L Normal 98-107 [facility] Comment on above: Performed By: #### L IPID, TSH, FT3 #### [facility] [address] [place] [address] Dr. Andrey Hargrove CO2 [Moles/Vol] 31.2 mmol/L Normal 21.0-32.0 [facility] Comment on above: Performed By: #### L IPID, TSH, FT3 #### [facility] [address] [place] [address] Dr. Andrey Hargrove Creatinine [Mass/Vol] 1.79 mg/dL Critically high 0.55-1.02 [facility] Comment on above: Performed By: #### L IPID, TSH, FT3 #### [facility] [address] [place] [address] Dr. Andrey Hargrove EGFR-AF LAO 34 mL/min/1.73m2 Critically low >=60 [facility] Comment on above: Performed By: #### L IPID, TSH, FT3 #### [facility] [address] [place] [address] Dr. Andrey Hargrove EGFR-NON AF LAO 28 mL/min/1.73m2 Critically low >=60 [facility] Comment on above: Performed By: #### L IPID, TSH, FT3 #### [facility] [address] [place] [address] Dr. Andrey Hargrove Glucose [Mass/Vol] 148 mg/dL Critically high 74-106 [facility] Comment on above: Performed By: #### L IPID, TSH, FT3 #### [facility] [address] [place] [address] Dr. Andrey Hargrove Potassium [Moles/Vol] 3.3 mmol/L Critically low 3.5-5.1 [facility] Comment on above: Performed By: #### L IPID, TSH, FT3 #### [facility] [address] [place] [address] Dr. Andrey Hargrove Sodium [Moles/Vol] 141 mmol/L Normal 136-145 [facility] Comment on above: Performed By: #### L IPID, TSH, FT3 #### [facility] [address] [place] [address] Dr. Andrey Hargrove Urea nitrogen [Mass/Vol] 41.0 mg/dL Critically high 7.0-18 .0 [facility] Comment on above: Performed By: #### L IPID, TSH, FT3 #### [facility] [address] [place], [place] [address] Dr. Andrey Hargrove Urea nitrogen/Creatinine [Mass ratio] 22.9 mg/mg Normal [facility] Comment on above: Performed By: #### L IPID, TSH, FT3 #### [facility] [address] [place], [place] [address] Dr. Andrey Hargrove PTH INTACTon 08-24-2022 PTH, Intact 44 pg/mL Normal 15-65 [facility] Comment on above: Performed By: #### V ITAD, FETIBC, FERR #### [facility] [address] [place] [id number] [address] Andrey Hargrove US THYROIDon 08-24-2022 US [...] RENETTA RENEE Date: 2022-08-24 16:16 Normal [facility] FERRITINon 08-23-2022 Ferritin [Mass/Vol] 114.0 ng/mL Normal 8.0-252.0 [facility] Comment on above: Performed By: #### V ITAD, FETIBC, FERR #### [facility] [address] [place] [address] Dr. Andrey Hargrove HEMOGRAM AND PLATELon 2022 Hematocrit (Bld) [Volume fraction] 34.9 % Critically low 36.0-48.0 [facility] Comment on above: Performed By: #### V ITAD, FETIBC, FERR #### [facility] [address] [place] [address] Dr. Andrey Hargrove Hemoglobin (Bld) [Mass/Vol] 11.8 g/dL Critically low 12.0-16.0 [facility] Comment on above: Performed By: #### V ITAD, FETIBC, FERR #### [facility] [address] [place] [address] Dr. Andrey Hargrove MCH (RBC) [Entitic mass] 28.6 pg Normal 26.7-34.0 [facility] Comment on above: Performed By: #### V ITAD, FETIBC, FERR #### [facility] [address] [place] [address] Dr. Andrey Hargrove MCHC (RBC) [Mass/Vol] 33.8 g/dL Normal 29.9-35.2 [facility] Comment on above: Performed By: #### V ITAD, FETIBC, FERR #### [facility] [address] [place] [address] Dr. Andrey Hargrove MCV (RBC) [Entitic vol] 84.7 fL Normal 81.0-99.0 [facility] Comment on above: Performed By: #### V ITAD, FETIBC, FERR #### [facility] [address] [place] [address] Dr. Andrey Hargrove PLT 215 103/ul Normal 150-450 [facility] Comment on above: Performed By: #### V ITAD, FETIBC, FERR #### [facility] [address] [address] [address] Andrey Hargrove RBC 4.12 106/ul Critically low 4.20-5.40 [facility] Comment on above: Performed By: #### V ITAD, FETIBC, FERR #### [facility] [address] [place] [address] Dr. Andrey Hargrove WBC 9.2 103/ul Normal 4.0-11.0 [facility] Comment on above: Performed By: #### V ITAD, FETIBC, FERR #### [facility] [address] [place] [address] Dr. Andrey Hargrove IRON AND TIBCon 08-23-2022 % SATURATION 15.4 % Normal [facility] Comment on above: Performed By: #### V ITAD, FETIBC, FERR #### [facility] [address] [place] [address] Dr. Andrey Hargrove Iron [Mass/Vol] 44.0 ug/dL Critically low 50.0-170.0 [facility] Comment on above: Performed By: #### V ITAD, FETIBC, FERR #### [facility] [address] [place] [address] Dr. Andrey Hargrove TIBC DIRECT 286.0 ug/dL Normal 250.0-450.0 [facility] Comment on above: Performed By: #### V ITAD, FETIBC, FERR #### [facility] [address] [place] [address] Dr. Andrey Hargrove MAGNESIUMon 08-23-2022 Magnesium [Mass/Vol] 2.1 mg/dL Normal 1.8-2.4 [facility] Comment on above: Performed By: #### L IPID, TSH, FT3 #### [facility] [address] [place] [address] Dr. Andrey Hargrove RENAL FUNCTION PANELon 08-23 Albumin [Mass/Vol] 3.3 g/dL Critically low 3.4-5.0 [facility] Comment on above: Performed By: #### L IPID, TSH, FT3 #### [facility] [address] [place], [place] [id number] Dr. Andrey Hargrove Calcium [Mass/Vol] 9.4 mg/dL Normal 8.5-10.1 [facility] Comment on above: Performed By: #### L IPID, TSH, FT3 #### [facility] [address] [address] [address] Andrey Hargrove Chloride [Moles/Vol] 103 mmol/L Normal 98-107 [facility] Comment on above: Performed By: #### L IPID, TSH, FT3 #### [facility] [address] [address] [address] Andrey Hargrove CO2 [Moles/Vol] 26.8 mmol/L Normal 21.0-32.0 [facility] Comment on above: Performed By: #### L IPID, TSH, FT3 #### [facility] [address] [place] [address] Dr. Andrey Hargrove Creatinine [Mass/Vol] 1.94 mg/dL Critically high 0.55-1.02 [facility] Comment on above: Performed By: #### L IPID, TSH, FT3 #### [facility] [address] [address] [address] Andrey Hargrove EGFR-AF LAO 31 mL/min/1.73m2 Critically low >=60 [facility] Comment on above: Performed By: #### L IPID, TSH, FT3 #### [facility] [address] [address] [address] Andrey Hargrove EGFR-NON AF LAO 25 mL/min/1.73m2 Critically low >=60 [facility] Comment on above: Performed By: #### L IPID, TSH, FT3 #### [facility] [address] [address] [address] Andrey Hargrove Glucose [Mass/Vol] 166 mg/dL Critically high 74-106 [facility] Comment on above: Performed By: #### L IPID, TSH, FT3 #### [facility] [address] [address] [address] Andrey Hargrove Phosphate [Mass/Vol] 4.6 mg/dL Normal 2.6-4.7 [facility] Comment on above: Performed By: #### L IPID, TSH, FT3 #### [facility] [address] [place] [address] Dr. Andrey Hargrove Potassium [Moles/Vol] 4.3 mmol/L Normal 3.5-5.1 [facility] Comment on above: Performed By: #### L IPID, TSH, FT3 #### [facility] [address] [place] [address] Dr. Andrey Hargrove Sodium [Moles/Vol] 137 mmol/L Normal 136-145 [facility] Comment on above: Performed By: #### L IPID, TSH, FT3 #### [facility] [address] [place] [address] Dr. Andrey Hargrove Urea nitrogen [Mass/Vol] 39.0 mg/dL Critically high 7.0-18 .0 [facility] Comment on above: Performed By: #### L IPID, TSH, FT3 #### [facility] [address] [place] [address] Dr. Andrey Hargrove UA RANDOM W/MICROSCOPICon BACTERIA NONE SEEN Normal NONE SEEN [facility] Comment on above: Performed By: #### V ITAD, FETIBC, FERR #### [facility] [address] [place] [address] Dr. Andrey Hargrove Bilirubin Ql (U) Negative Normal NEGATIVE [facility] [place] Comment on above: Performed By: #### V ITAD, FETIBC, FERR #### [facility] [address] [place] [address] Dr. Andrey Hargrove CAST NONE SEEN Normal NONE SEEN [facility] Comment on above: Performed By: #### V ITAD, FETIBC, FERR #### [facility] [address] [place] [address] Dr. Andrey Hargrove Clarity (U) CLEAR Normal CLEAR [facility] Comment on above: Performed By: #### V ITAD, FETIBC, FERR #### [facility] [address] [place] [address] Dr. Andrey Hargrove Color (U) LT. YELLOW Normal YELLOW [facility] Comment on above: Performed By: #### V ITAD, FETIBC, FERR #### [facility] [address] [address] [address] Andrey Hargrove Crystals LM Nom (Urine sed) NONE SEEN Normal NONE SEEN [facility] Comment on above: Performed By: #### V ITAD, FETIBC, FERR #### [facility] [address] [address] [address] Andrey Hargrove Epithelial cells LM Ql (Urine sed) RARE Normal NONE SEEN /RARE [facility] Comment on above: Performed By: #### V ITAD, FETIBC, FERR #### [facility] [address] [place] [address] Dr. Andrey Hargrove Glucose Ql (U) Negative Normal NEGATIVE [facility] Comment on above: Performed By: #### V ITAD, FETIBC, FERR #### [facility] [address] [place] [address] Dr. Andrey Hargrove Hemoglobin Ql (U) Negative Normal NEGATIVE [facility] Comment on above: Performed By: #### V ITAD, FETIBC, FERR #### [facility] [address] [place] [address] Dr. Andrey Hargrove Ketones Ql (U) Negative Normal NEGATIVE [facility] Comment on above: Performed By: #### V ITAD, FETIBC, FERR #### [facility] [address] [address] [address] Andrey Hargrove LEUKOCYTES Negative Normal NEGATIVE [facility] Comment on above: Performed By: #### V ITAD, FETIBC, FERR #### [facility] [address] [address] [address] Andrey Hargrove MUCOUS NONE SEEN Normal NONE SEEN [facility] Comment on above: Performed By: #### V ITAD, FETIBC, FERR #### [facility] [address] [place] [address] Dr. Andrey Hargrove Nitrite Ql (U) Negative Normal NEGATIVE [facility] Comment on above: Performed By: #### V ITAD, FETIBC, FERR #### [facility] [address] [place] [address] Dr. Andrey Hargrove pH (U) 6.5 [pH] Normal 5-9 [facility] Comment on above: Performed By: #### V ITAD, FETIBC, FERR #### [facility] [address] [place] [address] Dr. Andrey Hargrove RBC NONE SEEN Abnormal 0-2 [facility] Comment on above: Performed By: #### V ITAD, FETIBC, FERR #### [facility] [address] [place] [address] Dr. Andrey Hargrove SPEC GRAVITY 1.010 Normal 1.005-<=1.02 5 [facility] Comment on above: Performed By: #### V ITAD, FETIBC, FERR #### [facility] [address] [place] [address] Dr. Andrey Hargrove UA PROTEIN 30 mg/dl Abnormal NEGATIVE/ TRACE [facility] Comment on above: Performed By: #### V ITAD, FETIBC, FERR #### [facility] [address] [place] [address] Dr. Andrey Hargrove Urobilinogen Qn (U) 0.2 {Kelly'U}/dL Normal 0.2 - 1. 0 [facility] Comment on above: Performed By: #### V ITAD, FETIBC, FERR #### [facility] [address] [place] [address] Dr. Andrey Hargrove WBC NONE SEEN Normal NONE SEEN [facility] Comment on above: Performed By: #### V ITAD, FETIBC, FERR #### [facility] [address] [place] [address] Dr. Andrey Hargrove URIC ACID SERUMon 08-23-2022 Urate [Mass/Vol] 5.8 mg/dL Normal 2.6-6.0 [facility] [place] Comment on above: Performed By: #### L IPID, TSH, FT3 #### [facility] [address] [place] [address] Dr. Andrey Hargrove VITAMIN D 25 OHon 08-23-2022 VIT D 25-OH 69.0 ng/mL Normal [facility] Comment on above: Performed By: #### V ITAD, FETIBC, FERR #### [facility] [address] [place], [place] [address] Dr. Andrey Hargrove VIT D RANGES SEE BELOW Normal [facility] Comment on above: Result Comment: <20 ng/mL Vit D deficient 20 - <30 ng/mL Vit D insufficient 30 - 100 ng/mL Vit D sufficient >100 ng/mL Potential Toxicity Performed By: #### V ITAD, FETIBC, FERR #### [facility] [address] [place], [place] [address] Dr. Andrey Hargrove ECHOCARDIO M/2D COMPLETEon 1 08-14-2021 ECHOCARDIO M/2D COMPLETE Patient: CLAUDIA ESTRELLA Exam Date: 06/13/2022 : 1950 Gender:F Ordering : DR KARTHIK FISH M.D. Admission #: [id number] Family : Order #: [id number] CLICK HERE TO VIEW EXAM ECHOCARDIOGRAM REPORT [...] Fish M.D. on 06/14/2022 at 17:50 Normal [facility] BNPon 06-10-2022 Natriuretic peptide B (Bld) [Mass/Vol] 4197.0 pg/mL Critically high <=900.0 [facility] Comment on above: Performed By: #### L IPID, TSH, FT3 #### [facility] [address] [place] [address] Dr. Andrey Hargrove PROF CHEM 8 (BAS METB)on Anion gap [Moles/Vol] 10.4 mmol/L Normal [facility] Comment on above: Performed By: #### V ITAD, FETIBC, FERR #### [facility] [address] [address] [address] Andrey Hargrove Calcium [Mass/Vol] 9.4 mg/dL Normal 8.5-10.1 [facility] Comment on above: Performed By: #### V ITAD, FETIBC, FERR #### [facility] [address] [place] [address] Dr. Andrey Hargrove Chloride [Moles/Vol] 99 mmol/L Normal 98-107 [facility] Comment on above: Performed By: #### V ITAD, FETIBC, FERR #### [facility] [address] [place] [address] Dr. Andrey Hargrove CO2 [Moles/Vol] 33.8 mmol/L Critically high 21.0-32.0 [facility] Comment on above: Performed By: #### V ITAD, FETIBC, FERR #### [facility] [address] [place] [address] Dr. Andrey Hargrove Creatinine [Mass/Vol] 2.09 mg/dL Critically high 0.55-1.02 [facility] Comment on above: Performed By: #### V ITAD, FETIBC, FERR #### [facility] [address] [address] [address] Andrey Hargrove EGFR-AF LAO 28 mL/min/1.73m2 Critically low >=60 [facility] Comment on above: Performed By: #### V ITAD, FETIBC, FERR #### [facility] [address] [place] [address] Dr. Andrey Hargrove EGFR-NON AF LAO 23 mL/min/1.73m2 Critically low >=60 [facility] Comment on above: Performed By: #### V ITAD, FETIBC, FERR #### [facility] [address] [address] [address] Andrey Hargrove Glucose [Mass/Vol] 75 mg/dL Normal 74-106 [facility] Comment on above: Performed By: #### V ITAD, FETIBC, FERR #### [facility] [address] [place] [address] Dr. Andrey Hargrove Potassium [Moles/Vol] 3.2 mmol/L Critically low 3.5-5.1 [facility] Comment on above: Performed By: #### V ITAD, FETIBC, FERR #### [facility] [address] [address] [address] Andrey Hargrove Sodium [Moles/Vol] 140 mmol/L Normal 136-145 [facility] Comment on above: Performed By: #### V ITAD, FETIBC, FERR #### [facility] [address] [address] [address] Andrey Hargrove Urea nitrogen [Mass/Vol] 61.0 mg/dL Critically high 7.0-18 .0 [facility] Comment on above: Performed By: #### V ITAD, FETIBC, FERR #### [facility] [address] [place] [address] Dr. Andrey Hargrove Urea nitrogen/Creatinine [Mass ratio] 29.2 mg/mg Normal [facility] Comment on above: Performed By: #### V ITAD, FETIBC, FERR #### [facility] [address] [place] [address] Dr. Andrey Hargrove BNPon 06-02-2022 Natriuretic peptide B (Bld) [Mass/Vol] 9365.0 pg/mL Critically high <=900.0 [facility] Comment on above: Performed By: #### V ITAD, FETIBC, FERR #### [facility] [address] [place] [address] Dr. Andrey Hargrove PROF CHEM 8 (BAS METB)on Anion gap [Moles/Vol] 10.7 mmol/L Normal Th [facility] Comment on above: Performed By: #### V ITAD, FETIBC, FERR #### [facility] [address] [place] [address] Dr. Andrey Hargrove Calcium [Mass/Vol] 9.1 mg/dL Normal 8.5-10.1 [facility] Comment on above: Performed By: #### V ITAD, FETIBC, FERR #### [facility] [address] [place] [address] Dr. Andrey Hargrove Chloride [Moles/Vol] 98 mmol/L Normal 98-107 [facility] Comment on above: Performed By: #### V ITAD, FETIBC, FERR #### [facility] [address] [place] [address] Dr. Andrey Hargrove CO2 [Moles/Vol] 29.4 mmol/L Normal 21.0-32.0 [facility] [place] Comment on above: Performed By: #### V ITAD, FETIBC, FERR #### [facility] [address] [place] [address] Dr. Andrey Hargrove Creatinine [Mass/Vol] 2.44 mg/dL Critically high 0.55-1.02 [facility] Comment on above: Performed By: #### V ITAD, FETIBC, FERR #### [facility] [address] [place] [address] Dr. Andrey Hargrove EGFR-AF LAO 24 mL/min/1.73m2 Critically low >=60 [facility] Comment on above: Performed By: #### V ITAD, FETIBC, FERR #### [facility] [address] [place] [address] Dr. Andrey Hargrove EGFR-NON AF LAO 20 mL/min/1.73m2 Critically low >=60 [facility] Comment on above: Performed By: #### V ITAD, FETIBC, FERR #### [facility] [address] [place] [address] Dr. Andrey Hargrove Glucose [Mass/Vol] 135 mg/dL Critically high 74-106 T [facility] Comment on above: Performed By: #### V ITAD, FETIBC, FERR #### [facility] [address] [place] [address] Dr. Andrey Hargrove Potassium [Moles/Vol] 4.1 mmol/L Normal 3.5-5.1 [facility] Comment on above: Performed By: #### V ITAD, FETIBC, FERR #### [facility] [address] [place] [address] Dr. Andrey Hargrove Sodium [Moles/Vol] 134 mmol/L Critically low 136-145 [facility] Comment on above: Performed By: #### V ITAD, FETIBC, FERR #### [facility] [address] [place] [address] Dr. Andrey Hargrove Urea nitrogen [Mass/Vol] 81.0 mg/dL Critically high 7.0-18 .0 [facility] Comment on above: Performed By: #### V ITAD, FETIBC, FERR #### [facility] [address] [place] [address] Dr. Andrey Hargrove Urea nitrogen/Creatinine [Mass ratio] 33.2 mg/mg Normal [facility] Comment on above: Performed By: #### V ITAD, FETIBC, FERR #### [facility] [address] [place] [address] Dr. Andrey Hargrove XR ELBOW RT MIN [...] BETSY LAZARO Date: 2022-06-01 17:24 Normal [facility] RENAL FUNCTION PANELon 05-27 Albumin [Mass/Vol] 3.4 g/dL Normal 3.4-5.0 [facility] Comment on above: Performed By: #### L IPID, TSH, FT3 #### [facility] [address] [address] [address] Andrey Hargrove Calcium [Mass/Vol] 9.1 mg/dL Normal 8.5-10.1 [facility] Comment on above: Performed By: #### L IPID, TSH, FT3 #### [facility] [address] [address] [address] Andrey Hargrove Chloride [Moles/Vol] 99 mmol/L Normal 98-107 [facility] Comment on above: Performed By: #### L IPID, TSH, FT3 #### [facility] [address] [address] [address] Andrey Hargrove CO2 [Moles/Vol] 30.9 mmol/L Normal 21.0-32.0 [facility] [place] Comment on above: Performed By: #### L IPID, TSH, FT3 #### [facility] [address] [address] [address] Andrey Hargrove Creatinine [Mass/Vol] 2.24 mg/dL Critically high 0.55-1.02 [facility] Comment on above: Performed By: #### L IPID, TSH, FT3 #### [facility] [address] [place] [address] Dr. Andrey Hargrove EGFR-AF LAO 26 mL/min/1.73m2 Critically low >=60 [facility] Comment on above: Performed By: #### L IPID, TSH, FT3 #### [facility] [address] [place] [address] Dr. Andrey Hargrove EGFR-NON AF LAO 22 mL/min/1.73m2 Critically low >=60 [facility] Comment on above: Performed By: #### L IPID, TSH, FT3 #### [facility] [address] [place] [address] Dr. Andrey Hargrove Glucose [Mass/Vol] 94 mg/dL Normal 74-106 [facility] Comment on above: Performed By: #### L IPID, TSH, FT3 #### [facility] [address] [place] [address] Dr. Andrey Hargrove Phosphate [Mass/Vol] 4.7 mg/dL Normal 2.6-4.7 [facility] Comment on above: Performed By: #### L IPID, TSH, FT3 #### [facility] [address] [place] [address] Dr. Andrey Hargrove Potassium [Moles/Vol] 3.5 mmol/L Normal 3.5-5.1 [facility] Comment on above: Performed By: #### L IPID, TSH, FT3 #### [facility] [address] [place] [address] Dr. Andrey Hargrove Sodium [Moles/Vol] 136 mmol/L Normal 136-145 [facility] Comment on above: Performed By: #### L IPID, TSH, FT3 #### [facility] [address] [place] [address] Dr. Andrey Hargrove Urea nitrogen [Mass/Vol] 72.0 mg/dL Critically high 7.0-18 .0 [facility] Comment on above: Performed By: #### L IPID, TSH, FT3 #### [facility] [address] [place] [address] Dr. Andrey Hargrove PTH INTACTon 05-24-2022 PTH, Intact 24 pg/mL Normal 15-65 [facility] Comment on above: Performed By: #### L IPID, TSH, FT3 #### [facility] [address] [place] [address] Dr. Andrey Hargrove FERRITINon 05-23-2022 Ferritin [Mass/Vol] 190.0 ng/mL Normal 8.0-252.0 [facility] Comment on above: Performed By: #### L IPID, TSH, FT3 #### [facility] [address] [place] [address] Dr. Andrey Hargrove FREE T3on 05-23-2022 FREE T3 1.96 pg/mlL Critically low 2.18-3.98 [facility] Comment on above: Performed By: #### L IPID, TSH, FT3 #### [facility] [address] [place] [address] Dr. Andrey Hargrove FREE T4on 05-23-2022 Free T4 [Mass/Vol] 1.33 ng/dL Normal 0.76-1.46 [facility] Comment on above: Performed By: #### L IPID, TSH, FT3 #### [facility] [address] [place] [address] Dr. Andrey Hargrove HEMOGRAM AND PLATELon 2021 Hematocrit (Bld) [Volume fraction] 30.6 % Critically low 36.0-48.0 [facility] Comment on above: Performed By: #### V ITAD, FETIBC, FERR #### [facility] [address] [place] [address] Dr. Andery Hargrove Hemoglobin (Bld) [Mass/Vol] 10.4 g/dL Critically low 12.0-16.0 [facility] Comment on above: Performed By: #### V ITAD, FETIBC, FERR #### [facility] [address] [place] [address] Dr. Andrey Hargrove MCH (RBC) [Entitic mass] 28.6 pg Normal 26.7-34.0 [facility] Comment on above: Performed By: #### V ITAD, FETIBC, FERR #### [facility] [address] [place] [address] Dr. Andrey Hargrove MCHC (RBC) [Mass/Vol] 34.0 g/dL Normal 29.9-35.2 [facility] Comment on above: Performed By: #### V ITAD, FETIBC, FERR #### [facility] [address] [place] [address] Dr. Andrey Hargrove MCV (RBC) [Entitic vol] 84.1 fL Normal 81.0-99.0 [facility] Comment on above: Performed By: #### V ITAD, FETIBC, FERR #### [facility] [address] [place] [address] Dr. Andrey Hargrove PLT 179 103/ul Normal 150-450 [facility] Comment on above: Performed By: #### V ITAD, FETIBC, FERR #### [facility] [address] [place] [address] Dr. Andrey Hargrove RBC 3.64 106/ul Critically low 4.20-5.40 [facility] Comment on above: Performed By: #### V ITAD, FETIBC, FERR #### [facility] [address] [place] [address] Dr. Andrey Hargrove WBC 9.5 103/ul Normal 4.0-11.0 [facility] Comment on above: Performed By: #### V ITAD, FETIBC, FERR #### [facility] [address] [place] [address] Dr. Andrey Hargrove IRON AND TIBCon 05-23-2022 % SATURATION 15.9 % Normal [facility] Comment on above: Performed By: #### L IPID, TSH, FT3 #### [facility] [address] [place] [address] Dr. Andrey Hargrove Iron [Mass/Vol] 44.0 ug/dL Critically low 50.0-170.0 [facility] Comment on above: Performed By: #### L IPID, TSH, FT3 #### [facility] [address] [address] [address] Andrey Hargrove TIBC DIRECT 276.0 ug/dL Normal 250.0-450.0 [facility] Comment on above: Performed By: #### L IPID, TSH, FT3 #### [facility] [address] [place] [address] Dr. Andrey Hargrove LIPID PROFILEon 05-23-2022 CHOL-HDL RATIO NORM SEE BELOW Normal [facility] Comment on above: Result Comment: 3.3 - 4.4 LOW RISK 4.4 - 7.1 AVERAGE RISK 7.1 - 11.0 MODERATE RISK >11.0 HIGH RISK Performed By: #### L IPID, TSH, FT3 #### [facility] [address] [place] [address] Dr. Andrey Hargrove Cholesterol [Mass/Vol] 129 mg/dL Normal <=200 [facility] Comment on above: Performed By: #### L IPID, TSH, FT3 #### [facility] [address] [place] [address] Dr. Andrey Hargrove Cholesterol in HDL [Mass/Vol] 55 mg/dL Normal 40-60 [facility] Comment on above: Performed By: #### L IPID, TSH, FT3 #### [facility] [address] [place] [address] Dr. Andrey Hargrove Cholesterol in LDL [Mass/Vol] 59.6 mg/dL Normal [facility] Comment on above: Performed By: #### L IPID, TSH, FT3 #### [facility] [address] [place] [address] Dr. Andrey Hargrove Cholesterol.total/Choles terol in HDL [Mass ratio] 2.3 {ratio} Normal [facility] Comment on above: Performed By: #### L IPID, TSH, FT3 #### [facility] [address] [place] [address] Dr. Andrey Hargrove HDL NORMAL > or = 60 mg/dl - LOW CARDIOVASCULAR RISK <40 mg/dl - HIGH CARDIOVASCULAR RISK Normal [facility] Comment on above: Performed By: #### L IPID, TSH, FT3 #### [facility] [address] [place] [address] Dr. Andrey Hargrove LDL CALC NORMAL SEE BELOW Normal [facility] Comment on above: Result Comment: <100 mg/dl OPTIMAL 100 - 129 mg/dl NEAR OR ABOVE OPTIMAL 130 - 159 mg/dl BORDERLINE HIGH 160 - 189 mg/dl HIGH >190 mg/dl VERY HIGH Performed By: #### L IPID, TSH, FT3 #### [facility] [address] [address] [address] Andrey Hargrove Triglyceride [Mass/Vol] 72 mg/dL Normal <=150 [facility] Comment on above: Performed By: #### L IPID, TSH, FT3 #### [facility] [address] [place] [address] Dr. Andrey Hargrove VLDL CALC 14.4 mg/dL Normal [facility] Comment on above: Performed By: #### L IPID, TSH, FT3 #### [facility] [address] [place] [address] Dr. Andrey Hargrove MAGNESIUMon 05-23-2022 Magnesium [Mass/Vol] 2.2 mg/dL Normal 1.8-2.4 [facility] Comment on above: Performed By: #### L IPID, TSH, FT3 #### [facility] [address] [place] [address] Dr. Andrey Hargrove RENAL FUNCTION PANELon 05-23 Albumin [Mass/Vol] 3.5 g/dL Normal 3.4-5.0 [facility] Comment on above: Performed By: #### L IPID, TSH, FT3 #### [facility] [address] [place] [address] Dr. Andrey Hargrove Calcium [Mass/Vol] 10.0 mg/dL Normal 8.5-10.1 [facility] Comment on above: Performed By: #### L IPID, TSH, FT3 #### [facility] [address] [place] [address] Dr. Andrey Hargrove Chloride [Moles/Vol] 98 mmol/L Normal 98-107 [facility] Comment on above: Performed By: #### L IPID, TSH, FT3 #### [facility] [address] [address] [address] Andrey Hargrove CO2 [Moles/Vol] 34.3 mmol/L Critically high 21.0-32.0 [facility] Comment on above: Performed By: #### L IPID, TSH, FT3 #### [facility] [address] [place] [address] Dr. Andrey Hargrove Creatinine [Mass/Vol] 2.24 mg/dL Critically high 0.55-1.02 [facility] Comment on above: Performed By: #### L IPID, TSH, FT3 #### [facility] [address] [place] [address] Dr. Andrey Hargrove EGFR-AF LAO 26 mL/min/1.73m2 Critically low >=60 [facility] Comment on above: Performed By: #### L IPID, TSH, FT3 #### [facility] [address] [place] [address] Dr. Andrey Hargrove EGFR-NON AF LAO 22 mL/min/1.73m2 Critically low >=60 [facility] Comment on above: Performed By: #### L IPID, TSH, FT3 #### [facility] [address] [place] [address] Dr. Andrey Hargrove Glucose [Mass/Vol] 123 mg/dL Critically high 74-106 T [facility] Comment on above: Performed By: #### L IPID, TSH, FT3 #### [facility] [address] [place] [address] Dr. Andrey Hargrove Phosphate [Mass/Vol] 5.2 mg/dL Critically high 2.6-4.7 [facility] Comment on above: Performed By: #### L IPID, TSH, FT3 #### [facility] [address] [place] [address] Dr. Andrey Hargrove Potassium [Moles/Vol] 3.0 mmol/L Critically low 3.5-5.1 [facility] Comment on above: Performed By: #### L IPID, TSH, FT3 #### [facility] [address] [place] [address] Dr. Andrey Hargrove Sodium [Moles/Vol] 137 mmol/L Normal 136-145 [facility] Comment on above: Performed By: #### L IPID, TSH, FT3 #### [facility] [address] [place] [address] Dr. Andrey Hargrove Urea nitrogen [Mass/Vol] 80.0 mg/dL Critically high 7.0-18 .0 [facility] Comment on above: Performed By: #### L IPID, TSH, FT3 #### [facility] [address] [place] [address] Dr. Andrey Hargrove TSHon 05-23-2022 TSH 4.652 uIU/mL Critically high 0.358-3.740 [facility] Comment on above: Performed By: #### L IPID, TSH, FT3 #### [facility] [address] [place] [address] Dr. Andrey Hragrove UA RANDOM W/MICROSCOPICon BACTERIA NONE SEEN Normal NONE SEEN [facility] Comment on above: Performed By: #### V ITAD, FETIBC, FERR #### [facility] [address] [place] [address] Dr. Andrey Hargrove Bilirubin Ql (U) Negative Normal NEGATIVE [facility] Comment on above: Performed By: #### V ITAD, FETIBC, FERR #### [facility] [address] [place] [address] Dr. Andrey Hargrove CAST NONE SEEN Normal NONE SEEN [facility] Comment on above: Performed By: #### V ITAD, FETIBC, FERR #### [facility] [address] [place] [address] Dr. Andrey Hargrove Clarity (U) CLEAR Normal CLEAR [facility] Comment on above: Performed By: #### V ITAD, FETIBC, FERR #### [facility] [address] [place] [address] Dr. Andrey Hargrove Color (U) LT. YELLOW Normal YELLOW [facility] Comment on above: Performed By: #### V ITAD, FETIBC, FERR #### [facility] [address] [address] [address] Andrey Hargrove Crystals LM Nom (Urine sed) NONE SEEN Normal NONE SEEN [facility] Comment on above: Performed By: #### V ITAD, FETIBC, FERR #### [facility] [address] [address] [address] Andrey Hargrove Epithelial cells LM Ql (Urine sed) FEW Abnormal NONE SEEN /RARE [facility] Comment on above: Performed By: #### V ITAD, FETIBC, FERR #### [facility] [address] [address] [address] Andrey Hargrove Glucose Ql (U) Negative Normal NEGATIVE [facility] Comment on above: Performed By: #### V ITAD, FETIBC, FERR #### [facility] [address] [place] [address] Dr. Andrey Hargrove Hemoglobin Ql (U) TRACE-INTACT Abnormal NEGATIVE [facility] Comment on above: Performed By: #### V ITAD, FETIBC, FERR #### [facility] [address] [place] [address] Dr. Andrey Hargrove Ketones Ql (U) Negative Normal NEGATIVE [facility] Comment on above: Performed By: #### V ITAD, FETIBC, FERR #### [facility] [address] [place] [address] Dr. Andrey Hargrove LEUKOCYTES SMALL Abnormal NEGATIVE [facility] Comment on above: Performed By: #### V ITAD, FETIBC, FERR #### [facility] [address] [address] [address] Andrey Hargrove MUCOUS NONE SEEN Normal NONE SEEN [facility] Comment on above: Performed By: #### V ITAD, FETIBC, FERR #### [facility] [address] [place] [address] Dr. Andrey Hargrove Nitrite Ql (U) Negative Normal NEGATIVE [facility] Comment on above: Performed By: #### V ITAD, FETIBC, FERR #### [facility] [address] [address] [address] Andrey Hargrove pH (U) 5.5 [pH] Normal 5-9 [facility] Comment on above: Performed By: #### V ITAD, FETIBC, FERR #### [facility] [address] [place] [address] Dr. Andrey Hargrove RBC 0-2 Normal 0-2 [facility] Comment on above: Performed By: #### V ITAD, FETIBC, FERR #### [facility] [address] [place] [address] Dr. Andrey Hargrove SPEC GRAVITY 1.010 Normal 1.005-<=1.02 5 [facility] Comment on above: Performed By: #### V ITAD, FETIBC, FERR #### [facility] [address] [place] [address] Dr. Andrey Hargrove UA PROTEIN TRACE Normal NEGATIVE/ TRACE [facility] Comment on above: Performed By: #### V ITAD, FETIBC, FERR #### [facility] [address] [place] [address] Dr. Andrey Hargrove Urobilinogen Qn (U) 0.2 {Kelly'U}/dL Normal 0.2 - 1. 0 [facility] Comment on above: Performed By: #### V ITAD, FETIBC, FERR #### [facility] [address] [place] [address] Dr. Andrey Hargrove WBC 0-2 Abnormal NONE SEEN [facility] Comment on above: Performed By: #### V ITAD, FETIBC, FERR #### [facility] [address] [place] [address] Dr. Andrey Hargrove URIC ACID SERUMon 05-23-2022 Urate [Mass/Vol] 7.4 mg/dL Critically high 2.6-6.0 [facility] Comment on above: Performed By: #### L IPID, TSH, FT3 #### [facility] [address] [place] [address] Dr. Andrey Hargrove URINE T PROTEIN CREAT RATIOo n 05-23-2022 Protein (U) [Mass/Vol] 39.9 mg/dL Critically high <=12.0 [facility] Comment on above: Performed By: #### U RTPCR #### [facility] [address] [address] [address] Andrey Hargrove UR PROT CREAT RAT 0.64 Normal [facility] Comment on above: Performed By: #### U RTPCR #### [facility] [address] [address] [address] Andrey Hargrove URINE CREAT 62.30 mg/dL Normal 20.00-300.00 [facility] Comment on above: Performed By: #### U RTPCR #### [facility] [address] [address] [address] Andrey Hargrove VITAMIN D 25 OHon 05-23-2022 VIT D 25-OH 90.7 ng/mL Normal [facility] Comment on above: Performed By: #### L IPID, TSH, FT3 #### [facility] [address] [place] [address] Dr. Andrey Hargrove VIT D RANGES SEE BELOW Normal [facility] Comment on above: Result Comment: <20 ng/mL Vit D deficient 20 - <30 ng/mL Vit D insufficient 30 - 100 ng/mL Vit D sufficient >100 ng/mL Potential Toxicity Performed By: #### L IPID, TSH, FT3 #### [facility] [address] [place] [address] Dr. Andrey Hargrove MAGNESIUMon 05-14-2022 Magnesium [Mass/Vol] 2.1 mg/dL Normal 1.8-2.4 [facility] Comment on above: Performed By: #### L IPID, TSH, FT3 #### [facility] [address] [place] [address] Dr. Andrey Hargrove PROF CHEM 8 (BAS METB)on Anion gap [Moles/Vol] 12.0 mmol/L Normal [facility] Comment on above: Performed By: #### L IPID, TSH, FT3 #### [facility] [address] [place] [address] Dr. Andrey Hargrove Calcium [Mass/Vol] 9.0 mg/dL Normal 8.5-10.1 [facility] Comment on above: Performed By: #### L IPID, TSH, FT3 #### [facility] [address] [address] [address] Andrey Hargrove Chloride [Moles/Vol] 97 mmol/L Critically low 98-107 [facility] Comment on above: Performed By: #### L IPID, TSH, FT3 #### [facility] [address] [place] [address] Dr. Andrey Hargrove CO2 [Moles/Vol] 30.4 mmol/L Normal 21.0-32.0 [facility] Comment on above: Performed By: #### L IPID, TSH, FT3 #### [facility] [address] [place] [address] Dr. Andrey Hargrove Creatinine [Mass/Vol] 2.28 mg/dL Critically high 0.55-1.02 [facility] Comment on above: Performed By: #### L IPID, TSH, FT3 #### [facility] [address] [place] [address] Dr. Andrey Hargrove EGFR-AF LAO 26 mL/min/1.73m2 Critically low >=60 [facility] Comment on above: Performed By: #### L IPID, TSH, FT3 #### [facility] [address] [place] [address] Dr. Andrey Hargrove EGFR-NON AF LAO 21 mL/min/1.73m2 Critically low >=60 [facility] Comment on above: Performed By: #### L IPID, TSH, FT3 #### [facility] [address] [place] [address] Dr. Andrey Hargrove Glucose [Mass/Vol] 190 mg/dL Critically high 74-106 [facility] Comment on above: Performed By: #### L IPID, TSH, FT3 #### [facility] [address] [place] [address] Dr. Andrey Hargrove Potassium [Moles/Vol] 3.4 mmol/L Critically low 3.5-5.1 [facility] Comment on above: Performed By: #### L IPID, TSH, FT3 #### [facility] [address] [address] [address] Andrey Hargrove Sodium [Moles/Vol] 136 mmol/L Normal 136-145 [facility] Comment on above: Performed By: #### L IPID, TSH, FT3 #### [facility] [address] [address] [address] Andrey Hargrove Urea nitrogen [Mass/Vol] 73.0 mg/dL Critically high 7.0-18 .0 [facility] Comment on above: Performed By: #### L IPID, TSH, FT3 #### [facility] [address] [address] [address] Andrey Hargrove Urea nitrogen/Creatinine [Mass ratio] 32.0 mg/mg Normal [facility] Comment on above: Performed By: #### L IPID, TSH, FT3 #### [facility] [address] [place] [address] Dr. Andrey Hargrove XR CHEST 2 Von [...] RENETTA RENEE Date: 2022-05-12 09:12 Normal [facility] BNPon 05-11-2022 Natriuretic peptide B (Bld) [Mass/Vol] 7074.0 pg/mL Critically high <=900.0 [facility] Comment on above: Performed By: #### V ITAD, FETIBC, FERR #### [facility] [address] [place] [address] Dr. Andrey Hargrove CBC AUTO DIFFon 05-11-2022 BASO # 0.1 103/ul Normal 0.0-0.1 [facility] Comment on above: Performed By: #### V ITAD, FETIBC, FERR #### [facility] [address] [place] [address] Dr. Andrey Hargrove Basophils/100 WBC (Bld) 0.7 % Normal 0.2-2.0 [facility] Comment on above: Performed By: #### V ITAD, FETIBC, FERR #### [facility] [address] [place] [address] Dr. Andrey Hargrove EO # 0.3 103/ul Normal 0.0-0.7 [facility] Comment on above: Performed By: #### V ITAD, FETIBC, FERR #### [facility] [address] [place] [address] Dr. Andrey Hargrove Eosinophils/100 WBC (Bld) 3.8 % Normal 0.9-7.0 [facility] Comment on above: Performed By: #### V ITAD, FETIBC, FERR #### [facility] [address] [place] [address] Dr. Andrey Hargrove Erythrocyte distribution width (RBC) [Ratio] 14.7 % Normal 11.0-15.0 [facility] Comment on above: Performed By: #### V ITAD, FETIBC, FERR #### [facility] [address] [place] [address] Dr. Andrey Hargrove Hematocrit (Bld) [Volume fraction] 29.6 % Critically low 36.0-48.0 [facility] Comment on above: Performed By: #### V ITAD, FETIBC, FERR #### [facility] [address] [place] [address] Dr. Andrey Hargrove Hemoglobin (Bld) [Mass/Vol] 9.9 g/dL Critically low 12.0-16.0 [facility] Comment on above: Performed By: #### V ITAD, FETIBC, FERR #### [facility] [address] [place] [address] Dr. Andrey Hargrove IG # 0.03 10e3/ul Normal 0.00-0.03 [facility] Comment on above: Performed By: #### V ITAD, FETIBC, FERR #### [facility] [address] [place] [address] Dr. Andrey Hargrove IG % 0.4 % Normal 0.0-0.5 [facility] Comment on above: Performed By: #### V ITAD, FETIBC, FERR #### [facility] [address] [place] [address] Dr. Andrey Hargrove LYMPH # 1.3 103/ul Normal 1.2-3.8 [facility] Comment on above: Performed By: #### V ITAD, FETIBC, FERR #### [facility] [address] [place] [address] Dr. Andrey Hargrove Lymphocytes/100 WBC (Bld) 16.3 % Critically low 20.5-60.0 [facility] Comment on above: Performed By: #### V ITAD, FETIBC, FERR #### [facility] [address] [place] [address] Dr. Andrey Hargrove MANUAL DIFF REQ NO Normal [facility] Comment on above: Performed By: #### V ITAD, FETIBC, FERR #### [facility] [address] [place] [address] Dr. Andrey Hargrove MCH (RBC) [Entitic mass] 28.7 pg Normal 26.7-34.0 [facility] Comment on above: Performed By: #### V ITAD, FETIBC, FERR #### [facility] [address] [place] [address] Dr. Andrey Hargrove MCHC (RBC) [Mass/Vol] 33.4 g/dL Normal 29.9-35.2 [facility] Comment on above: Performed By: #### V ITAD, FETIBC, FERR #### [facility] [address] [place] [address] Dr. Andrey Hargrove MCV (RBC) [Entitic vol] 85.8 fL Normal 81.0-99.0 [facility] Comment on above: Performed By: #### V ITAD, FETIBC, FERR #### [facility] [address] [place] [address] Dr. Andrey Hargrove MONO # 0.7 103/ul Normal 0.3-0.8 [facility] Comment on above: Performed By: #### V ITAD, FETIBC, FERR #### [facility] [address] [place] [address] Dr. Andrey Hargrove Monocytes/100 WBC (Bld) 8.7 % Normal 1.7-12.0 [facility] Comment on above: Performed By: #### V ITAD, FETIBC, FERR #### [facility] [address] [place] [address] Dr. Andrey Hargrove NEUT # 5.4 103/ul Normal 1.4-6.5 [facility] Comment on above: Performed By: #### V ITAD, FETIBC, FERR #### [facility] [address] [place] [address] Dr. Andrey Hargrove Neutrophils/100 WBC (Bld) 70.1 % Normal 43.0-75.0 [facility] Comment on above: Performed By: #### V ITAD, FETIBC, FERR #### [facility] [address] [place] [address] Dr. Andrey Hargrove Platelet mean volume (Bld) [Entitic vol] 10.9 fL Normal 9.5-13.5 [facility] Comment on above: Performed By: #### V ITAD, FETIBC, FERR #### [facility] [address] [place] [address] Dr. Andrey Hargrove PLT 171 103/ul Normal 150-450 [facility] Comment on above: Performed By: #### V ITAD, FETIBC, FERR #### [facility] [address] [place] [address] Dr. Andrey Hargrove RBC 3.45 106/ul Critically low 4.20-5.40 [facility] Comment on above: Performed By: #### V ITAD, FETIBC, FERR #### [facility] [address] [place] [address] Dr. Andrey Hargrove WBC 7.7 103/ul Normal 4.0-11.0 [facility] Comment on above: Performed By: #### V ITAD, FETIBC, FERR #### [facility] [address] [place] [address] Dr. Andrey Hargrove PROF CHEM 8 (BAS METB)on Anion gap [Moles/Vol] 9.8 mmol/L Normal [facility] Comment on above: Performed By: #### V ITAD, FETIBC, FERR #### [facility] [address] [place] [address] Dr. Andrey Hargrove Calcium [Mass/Vol] 9.1 mg/dL Normal 8.5-10.1 [facility] Comment on above: Performed By: #### V ITAD, FETIBC, FERR #### [facility] [address] [place] [address] Dr. Andrey Hargrove Chloride [Moles/Vol] 96 mmol/L Critically low 98-107 [facility] Comment on above: Performed By: #### V ITAD, FETIBC, FERR #### [facility] [address] [place] [address] Dr. Andrey Hargrove CO2 [Moles/Vol] 30.8 mmol/L Normal 21.0-32.0 [facility] Comment on above: Performed By: #### V ITAD, FETIBC, FERR #### [facility] [address] [place] [address] Dr. Andrey Hargrove Creatinine [Mass/Vol] 2.28 mg/dL Critically high 0.55-1.02 [facility] Comment on above: Performed By: #### V ITAD, FETIBC, FERR #### [facility] [address] [place] [address] Dr. Andrey Hargrove EGFR-AF LAO 26 mL/min/1.73m2 Critically low >=60 [facility] Comment on above: Performed By: #### V ITAD, FETIBC, FERR #### [facility] [address] [place] [address] Dr. Andrey Hargrove EGFR-NON AF LAO 21 mL/min/1.73m2 Critically low >=60 [facility] Comment on above: Performed By: #### V ITAD, FETIBC, FERR #### [facility] [address] [place] [address] Dr. Andrey Hargrove Glucose [Mass/Vol] 158 mg/dL Critically high 74-106 [facility] Comment on above: Performed By: #### V ITAD, FETIBC, FERR #### [facility] [address] [place] [address] Dr. Andrey Hargrove Potassium [Moles/Vol] 3.6 mmol/L Normal 3.5-5.1 [facility] Comment on above: Performed By: #### V ITAD, FETIBC, FERR #### [facility] [address] [place] [address] Dr. Andrey Hargrove Sodium [Moles/Vol] 133 mmol/L Critically low 136-145 [facility] Comment on above: Performed By: #### V ITAD, FETIBC, FERR #### [facility] [address] [place] [address] Dr. Andrey Hargrove Urea nitrogen [Mass/Vol] 66.0 mg/dL Critically high 7.0-18 .0 [facility] Comment on above: Performed By: #### V ITAD, FETIBC, FERR #### [facility] [address] [place] [address] Dr. Andrey Hargrove Urea nitrogen/Creatinine [Mass ratio] 28.9 mg/mg Normal [facility] Comment on above: Performed By: #### V ITAD, FETIBC, FERR #### [facility] [address] [place] [address] Dr. Andrey Hargrove MAGNESIUMon 03-17-2022 Magnesium [Mass/Vol] 1.9 mg/dL Normal 1.8-2.4 [facility] Comment on above: Performed By: #### V ITAD, FETIBC, FERR #### [facility] [address] [place] [address] Dr. Andrey Hargrove PROF CHEM 8 (BAS METB)on Anion gap [Moles/Vol] 11.7 mmol/L Normal [facility] Comment on above: Performed By: #### V ITAD, FETIBC, FERR #### [facility] [address] [place] [address] Dr. Andrey Hargrove Calcium [Mass/Vol] 9.4 mg/dL Normal 8.5-10.1 [facility] Comment on above: Performed By: #### V ITAD, FETIBC, FERR #### [facility] [address] [place] [address] Dr. Andrey Hargrove Chloride [Moles/Vol] 97 mmol/L Critically low 98-107 [facility] Comment on above: Performed By: #### V ITAD, FETIBC, FERR #### [facility] [address] [place] [address] Dr. Andrey Hargrove CO2 [Moles/Vol] 29.0 mmol/L Normal 21.0-32.0 [facility] Comment on above: Performed By: #### V ITAD, FETIBC, FERR #### [facility] [address] [place] [address] Dr. Andrey Hargrove Creatinine [Mass/Vol] 2.02 mg/dL Critically high 0.55-1.02 [facility] Comment on above: Performed By: #### V ITAD, FETIBC, FERR #### [facility] [address] [place] [address] Dr. Andrey Hargrove EGFR-AF LAO 30 mL/min/1.73m2 Critically low >=60 [facility] Comment on above: Performed By: #### V ITAD, FETIBC, FERR #### [facility] [address] [place] [address] Dr. Andrey Hargrove EGFR-NON AF LAO 24 mL/min/1.73m2 Critically low >=60 [facility] Comment on above: Performed By: #### V ITAD, FETIBC, FERR #### [facility] [address] [place] [address] Dr. Andrey Hargrove Glucose [Mass/Vol] 204 mg/dL Critically high 74-106 [facility] Comment on above: Performed By: #### V ITAD, FETIBC, FERR #### [facility] [address] [place] [address] Dr. Andrey Hargrove Potassium [Moles/Vol] 3.7 mmol/L Normal 3.5-5.1 [facility] Comment on above: Performed By: #### V ITAD, FETIBC, FERR #### [facility] [address] [place] [address] Dr. Andrey Hargrove Sodium [Moles/Vol] 134 mmol/L Critically low 136-[address] [facility] Comment on above: Performed By: #### V ITAD, FETIBC, FERR #### [facility] [address] [place] [address] Dr. Andrey Hargrove Urea nitrogen [Mass/Vol] 60.0 mg/dL Critically high 7.0-18 .0 [facility] Comment on above: Performed By: #### V ITAD, FETIBC, FERR #### [facility] [address] [place] [address] Dr. Andrey Hargrove Urea nitrogen/Creatinine [Mass ratio] 29.7 mg/mg Normal [facility] Comment on above: Performed By: #### V ITAD, FETIBC, FERR #### [facility] [address] [place] [address] Dr. Andrey Hargrove PTH INTACTon 01-18-2022 PTH, Intact 51 pg/mL Normal 15-65 [facility] Comment on above: Performed By: #### L IPID, TSH, FT3 #### [facility] [address] [place] [address] Dr. Andrey Hargrove FERRITINon 01-17-2022 Ferritin [Mass/Vol] 133.0 ng/mL Normal 8.0-252.0 [facility] Comment on above: Performed By: #### V ITAD, FETIBC, FERR #### [facility] [address] [place] [address] Dr. Andrey Hargrove HEMOGRAM AND PLATELon 2021 Hematocrit (Bld) [Volume fraction] 31.7 % Critically low 36.0-48.0 [facility] Comment on above: Performed By: #### V ITAD, FETIBC, FERR #### [facility] [address] [place] [address] Dr. Andrey Hargrove Hemoglobin (Bld) [Mass/Vol] 10.2 g/dL Critically low 12.0-16.0 [facility] Comment on above: Performed By: #### V ITAD, FETIBC, FERR #### [facility] [address] [place] [address] Dr. Andrey Hargrove MCH (RBC) [Entitic mass] 28.3 pg Normal 26.7-34.0 [facility] Comment on above: Performed By: #### V ITAD, FETIBC, FERR #### [facility] [address] [place] [address] Dr. Andrey Hargrove MCHC (RBC) [Mass/Vol] 32.2 g/dL Normal 29.9-35.2 [facility] Comment on above: Performed By: #### V ITAD, FETIBC, FERR #### [facility] [address] [place] [address] Dr. Andrey Hargrove MCV (RBC) [Entitic vol] 88.1 fL Normal 81.0-99.0 [facility] Comment on above: Performed By: #### V ITAD, FETIBC, FERR #### [facility] [address] [place] [address] Dr. Andrey Hargrove PLT 198 103/ul Normal 150-450 [facility] Comment on above: Performed By: #### V ITAD, FETIBC, FERR #### [facility] [address] [place] [address] Dr. Andrey Hargrove RBC 3.60 106/ul Critically low 4.20-5.40 [facility] Comment on above: Performed By: #### V ITAD, FETIBC, FERR #### [facility] [address] [place] [address] Dr. Andrey Hargrove WBC 8.5 103/ul Normal 4.0-11.0 [facility] Comment on above: Performed By: #### V ITAD, FETIBC, FERR #### [facility] [address] [place] [address] Dr. Andrey Hargrove IRON AND TIBCon 01-17-2022 % SATURATION 17.8 % Normal [facility] Comment on above: Performed By: #### V ITAD, FETIBC, FERR #### [facility] [address] [place] [address] Dr. Andrey Hargrove Iron [Mass/Vol] 47.0 ug/dL Critically low 50.0-170.0 [facility] Comment on above: Performed By: #### V ITAD, FETIBC, FERR #### [facility] [address] [place] [address] Dr. Andery Hagrrove TIBC DIRECT 264.0 ug/dL Normal 250.0-450.0 [facility] Comment on above: Performed By: #### V ITAD, FETIBC, FERR #### [facility] [address] [place] [address] Dr. Andrey Hargrove MAGNESIUMon 01-17-2022 Magnesium [Mass/Vol] 2.0 mg/dL Normal 1.8-2.4 [facility] Comment on above: Performed By: #### V ITAD, FETIBC, FERR #### [facility] [address] [place] [address] Dr. Andrey Hargrove RENAL FUNCTION PANELon 01-17 Albumin [Mass/Vol] 3.3 g/dL Critically low 3.4-5.0 [facility] Comment on above: Performed By: #### V ITAD, FETIBC, FERR #### [facility] [address] [address] [address] Andrey Hargrove Calcium [Mass/Vol] 9.1 mg/dL Normal 8.5-10.1 [facility] Comment on above: Performed By: #### V ITAD, FETIBC, FERR #### [facility] [address] [place] [address] Dr. Andrey Hargrove Chloride [Moles/Vol] 104 mmol/L Normal 98-107 [facility] Comment on above: Performed By: #### V ITAD, FETIBC, FERR #### [facility] [address] [place], [place] [id number] Dr. Andrey Hargrove CO2 [Moles/Vol] 27.6 mmol/L Normal 21.0-32.0 [facility] Comment on above: Performed By: #### V ITAD, FETIBC, FERR #### [facility] [address] [place] [address] Dr. Andrey Hargrove Creatinine [Mass/Vol] 1.71 mg/dL Critically high 0.55-1.02 [facility] Comment on above: Performed By: #### V ITAD, FETIBC, FERR #### [facility] [address] [place] [address] Dr. Andrey Hargrove EGFR-AF LAO 36 mL/min/1.73m2 Critically low >=60 [facility] Comment on above: Performed By: #### V ITAD, FETIBC, FERR #### [facility] [address] [place] [address] Dr. Andrey Hargrove EGFR-NON AF LAO 30 mL/min/1.73m2 Critically low >=60 [facility] Comment on above: Performed By: #### V ITAD, FETIBC, FERR #### [facility] [address] [place] [address] Dr. Andrey Hargrove Glucose [Mass/Vol] 115 mg/dL Critically high 74-106 T [facility] Comment on above: Performed By: #### V ITAD, FETIBC, FERR #### [facility] [address] [place] [address] Dr. Andrey Hargrove Phosphate [Mass/Vol] 4.3 mg/dL Normal 2.6-4.7 [facility] Comment on above: Performed By: #### V ITAD, FETIBC, FERR #### [facility] [address] [place] [address] Dr. Andrey Hargrove Potassium [Moles/Vol] 3.9 mmol/L Normal 3.5-5.1 [facility] Comment on above: Performed By: #### V ITAD, FETIBC, FERR #### [facility] [address] [place] [address] Dr. Andrey Hargrove Sodium [Moles/Vol] 139 mmol/L Normal 136-145 [facility] Comment on above: Performed By: #### V ITAD, FETIBC, FERR #### [facility] [address] [place] [address] Dr. Andrey Hargrove Urea nitrogen [Mass/Vol] 38.0 mg/dL Critically high 7.0-18 .0 [facility] Comment on above: Performed By: #### V ITAD, FETIBC, FERR #### [facility] [address] [place] [address] Dr. Andrey Hragrove UA RANDOM W/MICROSCOPICon BACTERIA NONE SEEN Normal NONE SEEN [facility] Comment on above: Performed By: #### L IPID, TSH, FT3 #### [facility] [address] [place] [address] Dr. Andrey Hargrove Bilirubin Ql (U) Negative Normal NEGATIVE [facility] [place] Comment on above: Performed By: #### L IPID, TSH, FT3 #### [facility] [address] [place] [address] Dr. Andrey Hargrove CAST SEEN Abnormal NONE SEEN [facility] Comment on above: Performed By: #### L IPID, TSH, FT3 #### [facility] [address] [place] [address] Dr. Andrey Hargrove Clarity (U) CLEAR Normal CLEAR [facility] Comment on above: Performed By: #### L IPID, TSH, FT3 #### [facility] [address] [place] [address] Dr. Andrey Hargrove Color (U) LT. YELLOW Normal YELLOW [facility] Comment on above: Performed By: #### L IPID, TSH, FT3 #### [facility] [address] [place] [address] Dr. Andrey Hargrove Crystals LM Nom (Urine sed) NONE SEEN Normal NONE SEEN [facility] Comment on above: Performed By: #### L IPID, TSH, FT3 #### [facility] [address] [place] [address] Dr. Andrey Hargrove Epithelial cells LM Ql (Urine sed) FEW Abnormal NONE SEEN /RARE [facility] Comment on above: Performed By: #### L IPID, TSH, FT3 #### [facility] [address] [address] [address] Andrey Hargrove Glucose Ql (U) Negative Normal NEGATIVE [facility] Comment on above: Performed By: #### L IPID, TSH, FT3 #### [facility] [address] [address] [address] Andrey Hargrove Hemoglobin Ql (U) Negative Normal NEGATIVE [facility] Comment on above: Performed By: #### L IPID, TSH, FT3 #### [facility] [address] [address] [address] Andrey Hargrove HYALINE CAST RARE Normal [facility] Comment on above: Performed By: #### L IPID, TSH, FT3 #### [facility] [address] [place] [address] Dr. Andrey Hargrove Ketones Ql (U) Negative Normal NEGATIVE [facility] Comment on above: Performed By: #### L IPID, TSH, FT3 #### [facility] [address] [place] [address] Dr. Andrey Hargrove LEUKOCYTES TRACE Abnormal NEGATIVE [facility] Comment on above: Performed By: #### L IPID, TSH, FT3 #### [facility] [address] [address] [address] Andrey Hargrove MUCOUS NONE SEEN Normal NONE SEEN [facility] Comment on above: Performed By: #### L IPID, TSH, FT3 #### [facility] [address] [place] [address] Dr. Andrey Hargrove Nitrite Ql (U) Negative Normal NEGATIVE [facility] Comment on above: Performed By: #### L IPID, TSH, FT3 #### [facility] [address] [place] [address] Dr. Andrey Hargrove pH (U) 5.0 [pH] Normal 5-9 [facility] Comment on above: Performed By: #### L IPID, TSH, FT3 #### [facility] [address] [place] [address] Dr. Andrey Hargrove RBC 0-2 Normal 0-2 [facility] Comment on above: Performed By: #### L IPID, TSH, FT3 #### [facility] [address] [place] [address] Dr. Andrey Hargrove SPEC GRAVITY 1.020 Normal 1.005-<=1.02 5 [facility] Comment on above: Performed By: #### L IPID, TSH, FT3 #### [facility] [address] [place] [address] Dr. Andrey Hargrove UA PROTEIN Negative Normal NEGATIVE/ TRACE [facility] Comment on above: Performed By: #### L IPID, TSH, FT3 #### [facility] [address] [place] [address] Dr. Andrey Hargrove Urobilinogen Qn (U) 0.2 {Kelly'U}/dL Normal 0.2 - 1. 0 [facility] Comment on above: Performed By: #### L IPID, TSH, FT3 #### [facility] [address] [place] [address] Dr. Andrey Hargrove WBC 2-5 Abnormal NONE SEEN [facility] Comment on above: Performed By: #### L IPID, TSH, FT3 #### [facility] [address] [place] [address] Dr. Andrey Hargrove URIC ACID SERUMon 01-17-2022 Urate [Mass/Vol] 5.4 mg/dL Normal 2.6-6.0 [facility] [place] Comment on above: Performed By: #### V ITAD, FETIBC, FERR #### [facility] [address] [place] [address] Dr. Andrey Hargrove URINE T PROTEIN CREAT RATIOo n 01-17-2022 Protein (U) [Mass/Vol] 15.3 mg/dL Critically high <=12.0 [facility] Comment on above: Performed By: #### V ITAD, FETIBC, FERR #### [facility] [address] [place] [address] Dr. Andrey Hargrove UR PROT CREAT RAT 0.36 Normal [facility] Comment on above: Performed By: #### V ITAD, FETIBC, FERR #### [facility] [address] [place] [address] Dr. Andrey Hargrove URINE CREAT 42.16 mg/dL Normal 20.00-300.00 [facility] Comment on above: Performed By: #### V ITAD, FETIBC, FERR #### [facility] [address] [place] [address] Dr. Andrey Hargrove VITAMIN D 25 OHon 01-17-2022 VIT D 25-OH 73.8 ng/mL Normal [facility] Comment on above: Performed By: #### V ITAD, FETIBC, FERR #### [facility] [address] [place] [address] Dr. Andrey Hargrove VIT D RANGES SEE BELOW Normal [facility] Comment on above: Result Comment: <20 ng/mL Vit D deficient 20 - <30 ng/mL Vit D insufficient 30 - 100 ng/mL Vit D sufficient >100 ng/mL Potential Toxicity Performed By: #### V ITAD, FETIBC, FERR #### [facility] [address] [place] [address] Dr. Andrey Hargrove PROF CHEM 8 (BAS METB)on Anion gap [Moles/Vol] 13.3 mmol/L Normal [facility] Comment on above: Performed By: #### V ITAD, FETIBC, FERR #### [facility] [address] [place] [address] Dr. Andrey Hargrove Calcium [Mass/Vol] 9.5 mg/dL Normal 8.5-10.1 [facility] Comment on above: Performed By: #### V ITAD, FETIBC, FERR #### [facility] [address] [place] [address] Dr. Andrey Hargrove Chloride [Moles/Vol] 98 mmol/L Normal 98-107 [facility] Comment on above: Performed By: #### V ITAD, FETIBC, FERR #### [facility] [address] [place] [address] Dr. Andrey Hargrove CO2 [Moles/Vol] 25.7 mmol/L Normal 21.0-32.0 [facility] Comment on above: Performed By: #### V ITAD, FETIBC, FERR #### [facility] [address] [address] [address] Andrey Hargrove Creatinine [Mass/Vol] 2.92 mg/dL Critically high 0.55-1.02 [facility] Comment on above: Performed By: #### V ITAD, FETIBC, FERR #### [facility] [address] [place] [address] Dr. Andrey Hargrove EGFR-AF LAO 19 mL/min/1.73m2 Critically low >=60 [facility] Comment on above: Performed By: #### V ITAD, FETIBC, FERR #### [facility] [address] [place] [address] Dr. Andrey Hargrove EGFR-NON AF LAO 16 mL/min/1.73m2 Critically low >=60 [facility] Comment on above: Performed By: #### V ITAD, FETIBC, FERR #### [facility] [address] [place] [address] Dr. Andrey Hargrove Glucose [Mass/Vol] 156 mg/dL Critically high 74-106 [facility] Comment on above: Performed By: #### V ITAD, FETIBC, FERR #### [facility] [address] [place] [address] Dr. Andrey Hargrove Potassium [Moles/Vol] 5.0 mmol/L Normal 3.5-5.1 [facility] Comment on above: Performed By: #### V ITAD, FETIBC, FERR #### [facility] [address] [place] [address] Dr. Andrey Hargrove Sodium [Moles/Vol] 132 mmol/L Critically low 136-[address] [facility] Comment on above: Performed By: #### V ITAD, FETIBC, FERR #### [facility] [address] [place] [address] Dr. Andrey Hargrove Urea nitrogen [Mass/Vol] 77.0 mg/dL Critically high 7.0-18 .0 [facility] Comment on above: Result Comment: CALL ED TO FRANCIS JUNG RMA Performed By: #### V ITAD, FETIBC, FERR #### [facility] [address] [place], [place] [address] Dr. Andrey Hargrove Urea nitrogen/Creatinine [Mass ratio] 26.4 mg/mg Normal [facility] Comment on above: Performed By: #### V ITAD, FETIBC, FERR #### [facility] [address] [place], [place] [address] Dr. Andrey Hargrove Cardiovascular Lab Reporton 12-10-2021 Cardiovascular Lab Report [facility] Patient Name: [facility] MR #: [id number] Physician: Karthik Calvo of [facility] Date: 12/09/2021 Division of Birthdate: 1950 Cardiology Room #: [facility] Cardiovascular Services [place] [address] Cardiovascular Laboratory Report INDICATION: The patient is [...] signed informed consent. 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 The right neck area was prepped and draped in usual fashion. Micropuncture technique and ultrasound guidance were used for access in the right internal jugular vein. A 5-Namibian x 11 cm sheath was placed. A 5-Namibian Dumont catheter was used for right heart [...] Fish M.D. Date Trans: 12/09/2021 11:37 P/joey [id number] cc: John Perdomo D.O. [address] [place] [address] Normal [facility] CBC COMPLETE BLOOD COUNTon 0 12-09-2021 Erythrocyte distribution width (RBC) [Ratio] 13.6 % Normal 11.5-15.0 [facility] Comment on above: Performed By: #### 5 0608 #### [facility] [address] [place] [address], [facility] Hematocrit (Bld) [Volume fraction] 35.6 % Low 36.0-45.0 [facility] Comment on above: Performed By: #### 5 0608 #### [facility] [address] Hemoglobin (Bld) [Mass/Vol] 11.8 g/dL Low 12.0-15.0 [facility] Comment on above: Performed By: #### 5 0608 #### [facility] [address] [facility] [place] [address], [facility] MCH (RBC) [Entitic mass] 28.6 pg Normal 27.0-33.0 [facility] Comment on above: Performed By: #### 5 0608 #### [facility] [address] [place] [address], [facility] MCHC (RBC) [Mass/Vol] 33.1 g/dL Normal 32.0-35.0 [facility] Comment on above: Performed By: #### 5 0608 #### [facility] [address] [place] [address], [facility] MCV (RBC) [Entitic vol] 86.2 fL Normal 82.0-98.0 T [facility] Comment on above: Performed By: #### 5 0608 #### [facility] [address] Nucleated RBC/100 WBC (Bld) [Ratio] 0 % Normal 0-0 [facility] Comment on above: Performed By: #### 5 0608 #### [facility] [address] [facility] [place] [address], [facility] PLAT CNT 240 10*3/uL Normal 150-400 [facility] Comment on above: Performed By: #### 5 0608 #### [facility] [address] [place] [address], [facility] RBC (Bld) [#/Vol] 4.13 10*6/uL Normal 3.80-5.00 [facility] Comment on above: Performed By: #### 5 0608 #### [facility] [address] WBC (Bld) [#/Vol] 14.13 10*3/uL High 4.00-10.60 [facility] Comment on above: Performed By: #### 5 0608 #### [facility] [address] [place] [address], [facility] Covid-19 PCR (CVDTB)on SARS-CoV-2 (COVID-19) RNA JAYASHREE+probe Ql (Unsp spec) Not detected Normal NOT DETECTED [facility] Comment on above: Result Comment: This test is not yet approved or cleared by the [place] FDA. When there are no FDA-approved or cleared tests available, and other criteria are met, FDA can make tests available under an emergency access mechanism called an Emergency Use Authorization (EUA). The EUA for this test is supported by the [employer] of Health and Human Service's (HHS's) [...] By: #### V ITAD, FETIBC, FERR #### [facility] [address] [place] [address] Dr. Andrey Hargrove ECHOCARDIO M/2D COMPLETEon 0 12-06-2021 ECHOCARDIO M/2D COMPLETE Patient: CLAUDIA ESTRELLA Exam Date: 12/06/2021 : 1950 Gender:F Ordering : KWAN ROSALES Admission #: [id number] Family : DR JOHN PERDOMO D.O. Order #: [id number] CLICK HERE TO VIEW EXAM ECHOCARDIOGRAM REPORT [...] Area(A4C): 14.80 cm2 Left Atrium Systolic Volume(A2C): 96837 mm3 Left Atrium Systolic Volume(A4C): 55206 mm3 Mitral Valve MV E to A [...] Fish M.D. on 12/06/2021 at 17:31 Normal [facility] BNPon 12-01-2021 Natriuretic peptide B (Bld) [Mass/Vol] 5127.0 pg/mL Critically high <=900.0 [facility] Comment on above: Performed By: #### V ITAD, FETIBC, FERR #### [facility] [address] [place] [address] Dr. Andrey Hargrove PROF CHEM 8 (BAS METB)on Anion gap [Moles/Vol] 13.9 mmol/L Normal [facility] Comment on above: Performed By: #### V ITAD, FETIBC, FERR #### [facility] [address] [place] [address] Dr. Andrey Hargrove Calcium [Mass/Vol] 9.4 mg/dL Normal 8.5-10.1 [facility] Comment on above: Performed By: #### V ITAD, FETIBC, FERR #### [facility] [address] [place] [address] Dr. Andrey Hargrove Chloride [Moles/Vol] 99 mmol/L Normal 98-107 [facility] Comment on above: Performed By: #### V ITAD, FETIBC, FERR #### [facility] [address] [address] [address] Andrey Hargrove CO2 [Moles/Vol] 28.4 mmol/L Normal 21.0-32.0 [facility] Comment on above: Performed By: #### V ITAD, FETIBC, FERR #### [facility] [address] [address] [address] Andrey Hargrove Creatinine [Mass/Vol] 2.11 mg/dL Critically high 0.55-1.02 [facility] Comment on above: Performed By: #### V ITAD, FETIBC, FERR #### [facility] [address] [address] [address] Andrey Hargrove EGFR-AF LAO 28 mL/min/1.73m2 Critically low >=60 [facility] Comment on above: Performed By: #### V ITAD, FETIBC, FERR #### [facility] [address] [address] [address] Andrey Hargrove EGFR-NON AF LAO 23 mL/min/1.73m2 Critically low >=60 [facility] Comment on above: Performed By: #### V ITAD, FETIBC, FERR #### [facility] Laboratory [address] [address] [address] Andrey Hargrove Glucose [Mass/Vol] 179 mg/dL Critically high 74-106 [facility] Comment on above: Performed By: #### V ITAD, FETIBC, FERR #### [facility] [address] [address] [address] Andrey Hargrove Potassium [Moles/Vol] 4.3 mmol/L Normal 3.5-5.1 [facility] Comment on above: Performed By: #### V ITAD, FETIBC, FERR #### [facility] [address] [address] [address] Andrey Hargrove Sodium [Moles/Vol] 137 mmol/L Normal 136-145 [facility] Comment on above: Performed By: #### V ITAD, FETIBC, FERR #### [facility] [address] [place] [address] Dr. Andrey Hargrove Urea nitrogen [Mass/Vol] 62.0 mg/dL Critically high 7.0-18 .0 [facility] Comment on above: Performed By: #### V ITAD, FETIBC, FERR #### [facility] [address] [place] [address] Dr. Andrey Hargrove Urea nitrogen/Creatinine [Mass ratio] 29.4 mg/mg Normal [facility] Comment on above: Performed By: #### V ITAD, FETIBC, FERR #### [facility] [address] [place] [address] Dr. Andrey Hargrove BNPon 11-19-2021 Natriuretic peptide B (Bld) [Mass/Vol] 4773.0 pg/mL Critically high <=900.0 [facility] Comment on above: Performed By: #### V ITAD, FETIBC, FERR #### [facility] [address] [place] [address] Dr. Andrey Hargrove PROF CHEM 8 (BAS METB)on Anion gap [Moles/Vol] 11.3 mmol/L Normal [facility] Comment on above: Performed By: #### V ITAD, FETIBC, FERR #### [facility] [address] [place] [address] Dr. Andrey Hargrove Calcium [Mass/Vol] 8.9 mg/dL Normal 8.5-10.1 [facility] Comment on above: Performed By: #### V ITAD, FETIBC, FERR #### [facility] [address] [place] [address] Dr. Andrey Hargrove Chloride [Moles/Vol] 100 mmol/L Normal 98-107 [facility] Comment on above: Performed By: #### V ITAD, FETIBC, FERR #### [facility] [address] [place] [address] Dr. Andrey Hargrove CO2 [Moles/Vol] 30.9 mmol/L Normal 21.0-32.0 [facility] Comment on above: Performed By: #### V ITAD, FETIBC, FERR #### [facility] [address] [place] [address] Dr. Andrey Hargrove Creatinine [Mass/Vol] 2.01 mg/dL Critically high 0.55-1.02 [facility] Comment on above: Performed By: #### V ITAD, FETIBC, FERR #### [facility] [address] [place] [address] Dr. Andrey Hargrove EGFR-AF LAO 30 mL/min/1.73m2 Critically low >=60 [facility] Comment on above: Performed By: #### V ITAD, FETIBC, FERR #### [facility] [address] [place] [address] Dr. Andrey Hargrove EGFR-NON AF LAO 24 mL/min/1.73m2 Critically low >=60 [facility] Comment on above: Performed By: #### V ITAD, FETIBC, FERR #### [facility] [address] [place] [address] Dr. Andrey Hargrove Glucose [Mass/Vol] 81 mg/dL Normal 74-106 [facility] Comment on above: Performed By: #### V ITAD, FETIBC, FERR #### [facility] [address] [place] [address] Dr. Andrey Hargrove Potassium [Moles/Vol] 3.2 mmol/L Critically low 3.5-5.1 [facility] Comment on above: Performed By: #### V ITAD, FETIBC, FERR #### [facility] [address] [place] [address] Dr. Andrey Hargrove Sodium [Moles/Vol] 139 mmol/L Normal 136-145 [facility] Comment on above: Performed By: #### V ITAD, FETIBC, FERR #### [facility] [address] [place] [address] Dr. Andrey Hargrove Urea nitrogen [Mass/Vol] 51.0 mg/dL Critically high 7.0-18 .0 [facility] Comment on above: Performed By: #### V ITAD, FETIBC, FERR #### [facility] [address] [place], [place] [address] Dr. Andrey Hargrove Urea nitrogen/Creatinine [Mass ratio] 25.4 mg/mg Normal [facility] Comment on above: Performed By: #### V ITAD, FETIBC, FERR #### [facility] [address] [place], [place] [address] Dr. Andrey Hargrove COVID-19 Antigenon 2 COVID-19 [...] its performance Kenny Disclaimer characteristic determined by [employer] and Kenny Disclaimer validated at [facility]. This Kenny Disclaimer test has not [...] is terminated or revoked sooner. PERFORMED BY: [place] [address] PATHOLOGIST VEGETABLE VENDOR JAMAL ALLEN M.D. Normal [facility] Comment on above: Performed By: #### S OFIAPOS, COVID-19 KENNY #### [facility] [address] [place] [address] Kenny Ag Positiveon 07-31-19 Kenny Ag Positive Positive Critically abnormal Negative [facility] Comment on above: Result Comment: This is a duplicate Kenny SARS Antigen (JOSE RAMON) result to be used for statistical tracking purpose only. PERFORMED BY: [place] [address] PATHOLOGIST VEGETABLE VENDOR JAMAL ALLEN M.D. Performed By: #### S OFIAPOS, COVID-19 KENNY #### [facility] [address] [place] [address] Coding Summary.on 12-22-2020 Coding Summary. CD:[id number] Gh0bWw+PGhlYWQ+PE1FV ZYvK39arIOwyP3QW7uWI U6RGZEYVYRYWV2JWB3lp WH1KSlqH7ImpcHu RjqyrNNdEG15BGv3XEC9 mJovDVhvaG4dmKXuT7d4 BwJgDP97rD28JKzpTTGt LsC5QwVjeaapoREc F6dsRsLjpTAoMwn+PHRh YmxlIHdpZHRoPScxMDAl MrYusDajMY1sXd8yYJLw LWNvbGxhcHNlOiBj m1asGENdCHrhXT6rzIbi H3XuuER3IVOqw6y9Np06 dHI+NGPwZJU6yGlpMFlj g570MjGuv3ieUII6 gYCdQOjvNAH8I47ra6A1 UNUkOOEoJWK9tGK8sS7v jMwschscJ2IuxKElBxL0 VYG1hLDclU6tePva vntcbW8yOfr+G32JZW3X VTEKJF6TEnp9J2JqSobv dHI+BN71GDNdXW94sCVn rEHak1yaaGd7NkPg KBFaXJA8uPmzNFsii5Mo TYWqC35axNFuj3C2NDLr vYmfzFTzZpVinES9uQ5x XWthlsphw9abebgr Tcdtm2qtll08cZ61Y56z XGptDUYcCNR4ZQIgVFNm uIifsb9wgG9hJz5+IDxj m8zvx5lqzNj9JiGw YYVnhgCtfJnjACQ3m4Jj Rn34D8IgmXdsi5YtOcv8 wg39uRUwr3N5qWG1HUne XVAtgV5mSIuxWhC3 XOLvEgLpoD16vQWhGNvk Ws0iqHspxMnkFA3lREZn dnlaMUNoqH0dJCXltKSt lCfkUW3eUHZhivjh o174ApQwFVF1HNLofRXf G5DqzL9jQgEmQONqBXHy Q9ZdbFKvIVqsE729MBtp SsF1TNJbtfRbL1Dm WKVcaJszCxO1d3Q9Gk5X g9CzyyluDUC5YJrgYAM6 LzEtGnLpSwF8D9GaUrv3 OYDsiDzzYX9mV8Nf QPLrafsffxwsnCL7ZKPw XHYjdF61xFDrIGovRe7h s6O3v257IMUnPOUxgN17 Po6faRwuNKCswQRZ hU7cvqvjg7hukgxmNjYl SPHfNNw2KWo9WNNcjXqo VjStRYH8NuC5MDI8lQKh jF2arOcuczcxtV8x Oyc+I01xjQ9gZSW6BFJ1 zvzeEGUwzdUuCG23KF20 G2UqBzfdbBWyrDM+PGRp wsUqxBhrRB7lYnOm a2tgk8OxFEaeZ0VnXXKt JDstLpd6HPXuUWV6pOY5 rK5cUUXkMKyzb9A4dUA7 E7SivdYxgi1ie9he JRHzTHmzT02otCNck4F0 SVIhqEB0PKAcuQmjBkFd rU29Sce+SNUiiFygx4Oc Thkof1cec5iuiGa4 IjMwJSIgdmFsaWduPSJ0 d9GpKw68K06qIJrzJQWn HYTbQKHoHGCnzHbwmx0p hB7qQf1+PGNvbCB3 hQC7cL8wHDCwNvJ3JGbr W775LxDalPPvNpcvs2np a4gubFe5RtItIEKiewRh kPmiNQJ0w1JiSa64 E00bXRthXQCnTRSoUKJd TDYwaYmdho4ncB5jRx7+ GZ8fz2awco20sN01mTN+ QIHuZHH6cEimNLxd TEWnyL6zZTtkQfA9ENOe KuGnwG31gYOgPDeaHw6x hFxfaZeyNM8oBLEqenyb c225DoPdb2wcHDBz hMTdGXtcJZA4D67xt9S8 PJAdPTUcJEC8dSP3bB1g bGlnbjogbGVmdDsgdmVy yNhaEXwwWZdpR463 IHRvcDsnPlBhdGllbnQg JrFjSCg9A7YvYjn8VTQq yKksRZ0awNPuYLcxCs5e vIlbeOteHU8bOELg ktjni467BsMsr4xfIWKd yQEoDLqvBWI0C80sm6U0 BSPwBYLmUQM9zUL9gB9b bGlnbjogbGVmdDsg zuEqpSgbTVjvYRlkN629 IHRvcDsnPkJpcnRoIERh mCO0RC43OQ31jTXef0G3 rQZ2L8IzOVQuuwxp drwprRM8ZDKeAKYqrF46 Yv6zcYapVd2qKZQjBWO1 BGXmhGAfK3WnpZ7jByMl PDIzBVVpF7GsfZZb VVpfL619YRxdScC2SCUm qcPcF6RyQZUqdCwyBxV3 w4L3Yn1PM6E9YF07PA65 mNTvi8L9vOS7L2At BIIvvljnmsfqeET1AZFs IGGqpA07On1xcCraFl8f IDHeMMI6OYUuwXGqA3Pf wA0wKpHeJVWpOTYh S9QllCHlRWsaL396BNsz VcG9AXVhbiGsG3HbIFUl cZarJbI7j8K3Uc9BWGs8 QS74SE22pSJba7H5 gDT6R9MxOUFhrszlszbm dPJ8FROgAYDbuZ34Yb1z xEjkRg1zVVLeOJF8VAQr iMSyN6YueF4tYuAg VUGtDGZaH3WjhZEtKCtc U309IFqvFlS9COEwnzSz W0MyZKRmvCwoWdY5z6U6 Ka6UBRXnVZ59ZZM7 jFC7PS48XP32A3CkJuyl dGFibGU+PHRhYmxlIHdp ZHRoPScxMDAlJyBzdHls DG9aTr5hUVKgDZLg aJygxXTuRoMwc8ezONXc MUqoTA9roBfaZ5JbqSK8 ZPFnt1f9Th62P55yN5Zf dXA+OSUrhPA5uWF1 zU1fKaGiYzJ7FRnaF162 CgKdnUCeTcwec3roz9mu kAk0RzQ5ZWVitrXdsUti WUO2c6WjNp57M96q IHdpZHRoPSIxNSUiIHZh eGcuxl9pzF9xAg8+PGNv eDL0lBW2wZ1mVkIpOfN4 DOtkU877NlZckXKa Vrvmw5efq9lltCu5HfZq MCQtdbQvwGplQDT3w7Py Zd34Y5LphZckg4IxKec6 fw64yAQqg9J5xRQ5 B5VmIVQrljxejXEgjGry EU9tDSTtzchtCTDcpY4u QLYhS0d6WvRqGhP9DCla V7QbguQ4TOKuqKYw EKdkRHU5L44mv7L5YTRt ADWxFIU0wNX7eP5nkFvn bjogbGVmdDsgdmVydGlj SBmtIGwxI548BGAm fOgrOACiwW3mQUGlpVXd hHslYL7oKXHfctmzOx0O G7JFQvfvB7dZSm6GBOF2 N5DjBjd7GAMhyQmy NE5mfYWtUBktQq0acIla uRqoHJ4uELOazwupPHQa zG9aPEEndHHkyTusAE4n IGUzjfsnc690GkAn LVQ6FXEwzEHuE8BklQ0g YsGyWKJrOBRfL9MxkFBy RSthT758UZfdMtA5LXNg nqAfP8TcHOTyjKno DaK0t8Y9Gd2mTO3gUe2e IRKwPB85VP22yZDyp8N7 jJS8P2WuFQOigubjsooy jPG9HTYlNBFwxL08 lAHcZXdsIc2py0U4d436 THMwUJAehC00Fp3ngXea NBNxdLRXzZ5xyvylp2zw cjogIzAwMDAwMDt0 ZEv9ZPUatIwtChOuZBW9 AcR5BKP2pEZomP0hpTdh uqwixU1bNoa+NjkgWWVh ghE5Q0TsTtg4TSUq oLrnRP7pfCLdEYjcIw1c hAyyyKvdTB5vPKGtunse OQGeuI8pXDBqmWCiqQul TX0iNVNyakipx233 SaTmXTV5XIRgjJSwR1Sb hU1iTdKlFJLnIWDjR6Lc cIGaOVgbG438WHmrYtK2 IWIyyfDbO3HoMNKj kCtfRnK7z0K1Vr4HFY4w yKH6R0RcFpc9RMOegQcl NV2evYOtVWstDw7odSch jIwqAR7iCVHxrgkp CMGwjN7vQWYlbEAhlWck ME2oDGYsptzhs338BjCx FTP6ULLreHRjM9OpfB3v AlIwECBjEOOkZ6Mr sQKxARpuZ604LAkrKwX2 BBGyxaYuQ0XsYALwvRkp FoK9r9G6Ig1HWVFwZYNv aJCeMlZ0F1AaIuod dHI+HB53XCBuLO10zAWh oALse1ntdHu8GgXcLDAq IAU4aTwqSHohb9AlHXBb P22slAUhb0P1MSCo lZpxoJQrTqIvjTH1pQ0e IEbgfxwwp1uofovkUfwy u2pvyu07cT66S40qAWln ZHRoPSIzMCUiIHZh eIonec4tgE5dOz3+PGNv pGJ5vGL3eH5vBjYdEdZ8 DFmnS715WfTwkVGuYkyu o9cuf6dgaYh9VdSy DGLzycYwrHihSLC2w2Hu Jh53V96kQChtVYWcURBn ZBClKTDxxIkhjp3xkE4m Ii8+HH4kw5yvtf63 aM29qOQ+XATcAQB6bGwe LTfjMNGxwA0yOEndDfX8 PZEhSsIsdN93kAFkCApz Ro1mzOtrjVtrQJ1d KTUwecxuj511ZuMqo0jw MGCbtYBoCFacDYV8I46r o1Y5BMEfQVGlYVK1fWX4 iP0shPbniqsjdRNt dDsgdmVydGljYWwtYWxp D412VRMnqQpsWrLnyIVa N0jtzdMAYK0bCmcodRM+ MXKxXTB1gDbvMEyt LJYcxQ7hKDTiX8z4GzHz LcR9RSzyD3QalhL8JBSs hWPqMSFnvCPCsN0ngskm u9xakcwbJvBbTMZe RXc8PVr2MGWnoZjjGlYc ESW7YyA7JOA2pXKnzF1c nWexfirooR4qUbw+RklO OjwvdGQ+PHRkIHN0 vNdiBZbhSYGyfX9fSXWu T0o5LbUrZvE6PPczZ7Tz ghQ9NGHmnCVxHGBynTBC oZ2zeqonz9vnnokr NoZhHHTzJMg5ACm3CNTe kNhzYfKgRMQ2OsD1GIU8 sEAbbW6xhHaojpxwfF1z Oyc+TVJOOjwvdGQ+ XCHxHKQ6nNvrGNpsBVAd fH1xASZyH1y6NcNmTnJ7 TTjrW0QkreS0XTWawARp XDHdwJTNjM8rhjxm k8dptpvcHpYlNCRuKDv2 NMb2VPQluFwdWvWmAKZ9 VhW4PLH6sIJvwM5bcThs yjivmY3tKaw+UGF5 UPN7PJ98NE28T4LiNhqy dGFibGU+PHRhYmxlIHdp ZHRoPScxMDAlJyBzdHls MB2tVa1yZQIoGYUn bGxh (more content not included)... Normal [facility] Consent for Procedure/Surger yon 12-16-2020 Consent for Procedure/Surgery [id number]#1.00CD:127 Normal [facility] Formson 12-16-2020 Forms [id number]# 1.00CD:127 Normal [facility] Lab Reportson 12-16-2020 Lab Reports [id number]# 1.00CD:127 [facility] Physician Referralon 021 Physician Referral [id number] #1.00CD:127 [facility] RAD - MISCon 12-16-2020 RAD - MISC [id number] 52#1.00CD:127 [facility] RAD - Ultrasound Reporton RAD - Ultrasound Report [id number] #1.00CD:127 Normal [facility] Ambulatory Clinical Summaryo n 12-15-2020 Ambulatory Clinical Summary {[id number]-dc-4 k-31-a3-89-t3-00-52- c3-f8-10}CD:[id number] Normal [facility] Patient Educationon 12-16-19 21 Patient Education Urology [...] these instructions at home: Medicines ? Take tyhu-uhr-zopxexw and prescription medicines only as told by [...] the blood stops without treatment. ? Take safk-paq-ykrtggy and prescription medicines only as told by your health care provider. ? Drink enough fluid to keep your urine clear or pale yellow. This information is not intended to replace advice given to you by your health care provider. Make sure you discuss any questions you have with your health care provider. Document Released: 06/19/2006 Document Revised: 11/13/2019 Document Reviewed: 07/22/2017 [employer] Patient Education ? 2019 [employer]. [facility] Urology Office/Clinic Noteon 12-15-2020 Urology Office/Clinic Note [...] The Urethra was dilated to: _18- 30 [place] with sounds. Specimens Removed: None Removal: Cystoscope [...] [facility] [address], [place] [address]- [phone] Additional Instructions: f/u PRN Patient Education Hematuria, Adult Donna Burnett, personally scribed for Dr. wKon on 12/15/2020 15:55:59. . Documentation recorded by [...] 50,000 intl units (1.25 mg) oral capsule, 13531 International_Unit= 1 cap(s), Monday Zioptan 0.0015% ophthalmic solution Allergies erythromycin (Anaphylactic reaction) penicillin (Hives) Social History Alco (more content not included)... Normal [facility] Comment on above: Result Comment: Elec tronically Signed By: Marcos KWON MD\.br\Date and Time Signed: 12/15/20 15:58 EDT\.br\Electronically Co-Signed By: Donna Hartley.rashmi\Date and Time Co-Signed: 12/15/20 15:56 EDT Reminderson 12-14-2020 Reminders - From: Augusta Singh To: EU - Clinical; Sent: 12/11/2020 13:29:41 EDT Show up: 12/14/2020 13:29:00 EDT Subject: Urine culture Reminder/Recall Urine Culture PRW reviewed positive culture. [facility] C Urineon 12-13-2020 Bacteria identified Cx Nom [...] Locations R1: This test was performed at: [facility], [address] [place] [address], [facility]- , , Normal [facility] Comment on above: Performed By: #### 2 [id number] ####[facility] [address] [place] [address] Ambulatory Clinical Summaryssm [facility] 12-11-2020 Ambulatory Clinical Summary {[id number]-e0-16-cd-4 3-e7-1v-0g-w9-nv-d3- 6c-b8-cc}CD:[id number] Normal [facility] Ambulatory Clinical Summary {75-2o-hd-01-34-83-4 b-3b-pb-72-6c-2m-8d- 13-29-0f}CD:[id number] Normal [facility] Ambulatory Clinical Summary {[id number]-0b-4 2-7w-75-52-67-5f-2b- c5-e6-1f}CD:[id number] Normal [facility] Patient Educationon 12-12-19 21 Patient Education Urology [...] these instructions at home: Medicines ? Take blyf-otl-htdoydr and prescription medicines only as told by [...] the blood stops without treatment. ? Take wqpx-vcy-ffbzzit and prescription medicines only as told by your health care provider. ? Drink enough fluid to keep your urine clear or pale yellow. This information is not intended to replace advice given to you by your health care provider. Make sure you discuss any questions you have with your health care provider. Document Released: 06/19/2006 Document Revised: 11/13/2019 Document Reviewed: 07/22/2017 [employer] Patient Education ? 2019 [employer]. 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 Jenkins due to Hematuria. Pt states that since the End of October she has been feeling a slight squeeze, no pain associated with this. Pt had a Renal US done at [facility]. Pt states that she has [...] Marcos Abreu, URL [address] [place] [address]- [phone] Additional Instructions: Patient Education Hematuria, Adult I, [...] Tab amLOD (more content not included)... Normal [facility] Comment on above: Result Comment: Elec tronically Signed By: Marcos KWON MD\.br\Date and Time Signed: 12/11/20 11:17 EDT\.br\Electronically Co-Signed By: Regla Pyle MA\.br\Date and Time Co-Signed: 12/11/20 11:12 EDT Lab Reportson 11-16-2020 Lab Reports [id number] #1.00CD:127 Normal [facility] Lab Reports [id number] #1.00CD:127 Normal [facility] RAD - Ultrasound Reporton RAD - Ultrasound Report [id number] #1.00CD:127 Normal [facility] IntraOperative Documentson 1 07-12-2019 IntraOperative Documents [id number]#1.00CD:127 Normal [facility] Message from Medicareon Message from Medicare [id number]#1 .00CD:127 Normal [facility] Coding Summary.on 05-06-2020 Coding Summary. CODING DATE: 05/06/2020 FINAL [facility] STATUS: Home (Routine DC) PAYOR: [...] PROC APC STAT DESCRIPTION DOCTOR NAME DATE 41810 5113 J1 Arthroscopy, Vinita han DO, Michael T 05/01/2020 surgical; with meniscectomy (medial OR lateral, including any meniscal shaving) including debridement/shaving of articular cartilage (chondroplasty), same or separate compartment(s), when performed LT Left side (used to identify procedures performed on the left side of the body) 16568 Anesthesia for open or Gurmeet Aldridge Jr, [...] Revised Date Saved: 05/06/2020 11:55 am Normal [facility] Insurance Correspondence Off gudelia 05-05-2020 Insurance Correspondence Office [id number] 5#1.00CD:127 Normal [facility] Main OR Intraoperative Recor don 05-05-2020 Main OR Intraoperative Record IntraOp Document Type FT Summary Primary Physician: David Talamantes DO Finalized Date/Time: 05/05/20 14:09:46 Pt. Name: CLAUDIA ESTRELLA Katerin Ramirez/Sex: 1950 Female Med Rec #: [id number] Physician: David Talamantes DO Financial #: [id number] Pt. Type: O Room/Bed: 17/01 Admit/Disch: 05/01/20 11:43:14 - 05/04/20 12:35:00 Institution: [...] Jr, DO, DO, Michael T Coy RN, Viky Mcdonough Role Performed Anesthesiologist of Surgeon - Primary Dye Reel Operator Helper - Primary Record Time In 05/01/20 14:26:00 05/01/20 14:39:00 05/01/20 14:26:00 Time Out 05/01/20 15:04:00 05/01/20 15:04:00 05/01/20 15:04:00 Procedure KNEE ARTHROSCOPY(Left) KNEE ARTHROSCOPY(Left) KNEE ARTHROSCOPY(Left) Comments Last Modified By: Edgar WU, Viky Hernández RN, Viky Krueger RN 05/01/20 15:04:35 05/01/20 15:04:35 05/01/20 15:04:35 Entry 4 Entry 5 Entry 6 Case Attendee Maxim WU, Augusta Castro CST, Leatha Flowers RN, CNOR, Cee Role Performed Dye Reel Operator Helper - Primary Scrub - Primary Dye Reel Operator Helper - Relief Time In 05/01/20 14:26:00 05/01/20 14:26:00 05/01/20 14:57:00 Time Out 05/01/20 15:04:00 05/01/20 15:04:00 05/01/20 15:04:00 Procedure KNEE ARTHROSCOPY(Left) KNEE ARTHROSCOPY(Left) KNEE ARTHROSCOPY(Left) Comments orientation Last Modified By: Edgar WU, Viky Hernández RN, Viky Krueger RN 05/01/20 [...] and tissue Entry 1 Skin Integrity Intact, [place], Warm, and Skin Abnormality No Dry Outcomes Met? Yes Last Modified By: Viky Hernández RN 05/01/20 14:46:48 Post-Care Text: The patient is free from signs and symptoms of injury caused by extraneous objects Patient Positioning FT Pre-Care Text: Identifies physical alterations that require additional precautions for procedure-specific positioning, verifies presence of prosthetics or corrective (more content not included)... Normal [facility] Progress Note-Physicianon Progress Note-Physician Patient: CLAUDIA ESTRELLA [...] volume (mL): 1,000, 68.3 kg, 1.64, m2 Divide 5/325 Tab: 1 tab(s), Tab, Oral, q4hr [...] Problems DM kidney disease / SNOMED CT 737248650 / Confirmed PVD (peripheral vascular disease) / SNOMED CT 1987617261 / Confirmed MMT (medial meniscus tear) / SNOMED CT 809954507 / Confirmed Resolved: Ocular herpes zoster / SNOMED CT 567505929 Resolved: HTN (hypertension) / SNOMED CT 1681082353 Canceled: Diabetes / SNOMED CT 252171277 Histories Past Medical History: No active or resolved past medical history items have been selected or recorded. Family History: No family history items have been selected or recorded. Procedure history: Right eye cataract extraction and insertion of intraocular lens ([id number]) on 11/19/2019 at 69 Years. Cataract extraction and insertion of intraocular lens ([id number]) on 11/06/2019 at 69 Years. Comments: 11/06/2019 14:13 EDT - Fabian WU, Loreto Abreu Left Appendectomy ([id number]). section x2 ([id number]). Cholecystectomy (18983025). Anesthesia for laparoscopic procedure on lower abdomen (49909134). Cheilectomy of tarsal foot (4461137490). Social History Social & Psychosocial Habits Alcohol [...] results Radiology results ECG interpretation Condition Plan [place] [employer] (ASA) physical status classification: Class III. Anesthetic Preoperative (more content not included)... Normal [facility] Comment on above: Result [...] Problems DM kidney disease / SNOMED CT 142723778 / Confirmed PVD (peripheral vascular disease) / SNOMED CT 1412038247 / Confirmed MMT (medial meniscus tear) / SNOMED CT 817721601 / Confirmed Resolved: Ocular herpes zoster / SNOMED CT 093309099 Resolved: HTN (hypertension) / SNOMED CT 8187074434 Canceled: Diabetes / SNOMED CT 950814327 Physical Examination Vital Signs 05/01/2020 16:58 EDT [...] F/U Plan Transfer/ Discharge: Condition stable. Normal [facility] Comment on above: Result Comment: Elec tronically Signed By: Luis Carlos Gomes DO, Gurmeet Mcdonough\.br\Date and Time Signed: 05/05/20 08:22 EST Capillary Glucose POCon Glucose [Mass/Vol] 149 mg/dL High 55-99 [facility] Comment on above: Result Comment: Monty pelayo RN/ Performed By: #### 2 [id number] #### [facility] [address] [place] [address] Glucose [Mass/Vol] 127 mg/dL High 55-99 [facility] Comment on above: Result Comment: Monty pelayo RN/ Performed By: #### 2 [id number] #### [facility] [address] [place] [address] Consent for Anesthesiaon Consent for Anesthesia [id number] 110 [id number] #1.00CD:127 Normal [facility] Discharge Instructionson Discharge Instructions [id number] 011 [id number] 9#1.00CD:127 Normal [facility] Inpatient Clinical Summaryon 05-04-2020 Inpatient Clinical Summary [place] [id number] Clinical Summary Person Information: Name: CLAUDIA ESTRELLA Age: 70 Years : 1950 Sex: Female PCP: JOHN PERDOMO DO Marital Status: Race: White Ethnicity: Non- or Language: Romanian Visit Id: Visit Reason: LEFT KNEE BONE BRUISE, MEDIAL MENISCUS TEAR, EFFUSION Speciality: Acuity: Enc Type: Observation Med Service: Surgery Arrival: 05/01/2020 11:43:14 Discharge: Dispo Type: Address: [address] [place] [address] Provider Notes: Diagnosis: 1:Other chest pain; 2:Hypertension; [...] up: With: Address: When: Follow up with Post Graduate Intern Within 1 week With: Address: When: JOHN PERDOMO [address] [place] [address] Business (1) With: Address: When: David Talamantes [address] [place] [address] Business (1) Comments: Keep scheduled appointment Patient Education Information: Post Op Patient Instructions - FT (Custom); Knee Cryocuff Patient Instructions - FT (Custom); Talamantes - Knee Arthroscopy (Custom) (CUSTOM) [facility] Inpatient Patient Summaryon 05-04-2020 Inpatient Patient Summary [address] [address] Patient Discharge Instructions PERSON INFORMATION [...] up: With: Address: When: Follow up with Post Graduate Intern Within 1 week With: Address: When: JOHN PERDOMO [facility] [place] [address] Business (1) With: Address: When: David Talamantes [address] [place] [address] Business (1) Comments: Keep scheduled appointment [...] STAY New Medications [id number], [address] [place] [id number], [phone] atorvastatin (Lipitor 20 mg Tab) 1 Tablets [...] amlodipine (amLO (more content not included)... Normal [facility] Interdisciplinary Note - PTo n 05-04-2020 Interdisciplinary Note - PT PT Screen performed. Pt was able to stand and ambulate throughout room without difficulty and without an AD. Pt also demos appropriate ROM to knee. Would recommend to f/u with Ortho to determine if therapy is needed in the future, but no PT needed at this time [facility] IntraOperative Documentson 1 07-04-2019 IntraOperative Documents [id number] #1.00CD:127 [facility] IntraOperative Documents [id number] #1.00CD:127 [facility] Message from Medicareon 110 Message from Medicare [id number] 11 [id number] 5#1.00CD:127 [facility] Monitor Recordon 05-04-2020 Monitor Record [id number] 6#1.00CD:127 [facility] Monitor Record [id number]. [id number] 5#1.00CD:127 [facility] Monitor Record [id number]. [id number] 7#1.00CD:127 [facility] Patient Education - Texton 1 07-04-2019 Patient Education - Text (Inserted Image . Unable to display) [place], [place] [facility] DISCHARGE INSTRUCTIONS: KNEE ARTHROSCOPY [...] or questions arise before your appointment. David Talmaantes, DO [facility] [address] [place] [address] Reviewed: 10-08 [facility] Preoperative Documentson Preoperative Documents [id number] #1.00CD:127 [facility] Preoperative Documents [id number] #1.00CD:127 [facility] Prescriptions/Work Noteson 1 07-04-2019 Prescriptions/Work Notes [id number] #1.00CD:127 Normal [facility] Capillary Glucose POCon Glucose [Mass/Vol] 183 mg/dL High 55-99 [facility] Comment on above: Performed By: #### 2 [id number] #### [facility] Laboratory [address] [place] [address] Glucose [Mass/Vol] 155 mg/dL High 55-99 [facility] Comment on above: Performed By: #### 2 [id number] #### [facility] Laboratory [address] [place] [address] Glucose [Mass/Vol] 113 mg/dL High 55-99 [facility] Comment on above: Result Comment: Monty MEDEIROS Performed By: #### 2 [id number] ####[facility] [address] [place] [address] Glucose [Mass/Vol] 112 mg/dL High 55-99 [facility] Comment on above: Performed By: #### 2 [id number] #### [facility] Laboratory [address] [place] [address] Glucose [Mass/Vol] 85 mg/dL Normal 55-99 [facility] Comment on above: Result Comment: Monty EMDEIROS Performed By: #### 2 [id number] #### [facility] Laboratory [address] [place] [address] Glucose [Mass/Vol] 59 mg/dL Normal 55-99 [facility] Comment on above: Result Comment: Monty MEDEIROS Performed By: #### 2 [id number] #### [facility] Laboratory [address] [place] [address] Consultation Noteon 05-03-20 Consultation Note HOSPITAL REGULATIONS: [...] left knee and elevate. Eh Carter DO [facility] Dictated: 05/02/2020 #[id number] Typed: 05/02/2020 #[id number] cc: DO David Nieto D.O. Normal [facility] Comment on above: Result Comment: Elec tronically Signed By: Eh Carter DO\.br\Date and Time Signed: 05/03/20 10:27 EST Monitor Recordon 05-03-2020 Monitor Record [id number] 1#1.00CD:127 Normal [facility] Monitor Record [id number] 6#1.00CD:127 Normal [facility] Operative Reporton 0 Operative Report Date of [...] The patient's condition satisfactory David Talamantes D.O. [facility] Dictated: 05/01/2020 #[id number] Typed: 05/01/2020 #[id number] cc: Randa Lanier D.O. [facility] Comment on above: Result Comment: Elec tronically [...] mg/dL High (05/03/20 12:18:00) POC Device SN: [id number] (05/03/20 12:18:00) POC Username: JOSESITO BROWN (05/03/20 [...] 0.4 mg= 1 tab(s), SubLingual, q5min, PRN Divide 5/325 Tab, 1 tab(s), Oral, q4hr, PRN [...] ophthalmic emulsion, 1 drop(s), Eye-Both, BID Normal [facility] Comment on above: Result [...] mg/dL High (05/03/20 07:32:00) POC Device SN: [id number] (05/03/20 07:32:00) POC Username: POC Username (05/03/20 [...] to obtain her records from her primary job training specialist once 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 [...] PRN L (more content not included)... Normal [facility] Comment on above: Result Comment: Elec tronically Signed By: Eleuterio VIGIL, John Olson\.br\Date and Time Signed: 05/03/20 07:45 EST Capillary Glucose POCon 10- Glucose [Mass/Vol] 212 mg/dL High 55-99 [facility] Comment on above: Performed By: #### 2 [id number] #### [facility] Laboratory [address] [place] [address] Glucose [Mass/Vol] 138 mg/dL High 55-99 [facility] Comment on above: Performed By: #### 2 [id number] #### [facility] Laboratory [address] [place] [address] Glucose [Mass/Vol] 139 mg/dL High 55-99 [facility] Comment on above: Performed By: #### 2 [id number] #### [facility] Laboratory [address] [place] [address] Glucose [Mass/Vol] 105 mg/dL High 55- [facility] Comment on above: Performed By: #### 2 [id number] #### [facility] [address] [place] [address] Glucose [Mass/Vol] 233 mg/dL High 55- [facility] Comment on above: Result Comment: Monty pelayo RN/ Performed By: #### 2 [id number] ####[facility] [address] [place] [address] Lipid Panelon 05-02-2020 Cholesterol [Mass/Vol] 160 mg/dL Normal 120-200 [facility] Comment on above: Performed By: #### 2 [id number] #### [facility] Laboratory [address] [place] [address] Cholesterol in HDL [Mass/Vol] 49 mg/dL Invalid Interpretation Code [facility] Comment on above: Result Comment: HDL > or equal to 60 mg/dL: Low cardiovascular risk HDL < 40 mg/dL : High cardiovascular risk Performed By: #### 2 [id number] #### [facility] [address] [place] [address] Cholesterol in LDL [Mass/Vol] 98 mg/dL Normal <=129 [facility] Comment on above: Performed By: #### 2 [id number] #### [facility] [address] [place] [address] Cholesterol in VLDL [Mass/Vol] 12 mg/dL Normal 7-40 [facility] Comment on above: Performed By: #### 2 [id number] #### [facility] [address] [place] [address] Triglyceride [Mass/Vol] 61 mg/dL Normal <=149 [facility] Comment on above: Performed By: #### 2 [id number] #### [facility] Laboratory [address] [place] [address] Monitor Recordon 05-02-2020 Monitor Record [id number] 2#1.00CD:127 Normal [facility] Progress Note-Physicianon Progress Note-Physician Assessment/Plan 1. Other [...] (05/01/20 18:27:00) (more content not included)... Normal [facility] Comment on above: Result Comment: Elec tronically Signed By: JUN VIGIL, Nhung\.br\Date and Time Signed: 05/02/20 10:00 EDT Troponin 3 Hr.on 05-02-2020 Troponin I.cardiac [Mass/Vol] 3.60 pg/mL Low 10.10-27.10 [facility] Comment on above: Result Comment: The 95% CI (Confidence Interval) PPV (Positive Predictive Value) for myocardial infarction in females is 38 pg/mL, in males 51 pg/mL. The results should be used in conjunction with clinical conditions of myocardial infarction. (Access High Sensitivity Troponin I Instructions For Use, [facility], January 2018) Performed By: #### 2 [id number] #### [facility] [address] [place] [address] Troponin 6 Hr.on 05-02-2020 Troponin I.cardiac [Mass/Vol] 3.90 pg/mL Low 10.10-27.10 [facility] Comment on above: Result Comment: The 95% CI (Confidence Interval) PPV (Positive Predictive Value) for myocardial infarction in females is 38 pg/mL, in males 51 pg/mL. The results should be used in conjunction with clinical conditions of myocardial infarction. (Access High Sensitivity Troponin I Instructions For Use, [facility], January 2018) Performed By: #### 2 [id number] #### [facility] Laboratory [address] [place] [address] Troponin 9 Hr.on 05-02-2020 Troponin I.cardiac [Mass/Vol] 5.10 pg/mL Low 10.10-27.10 [facility] Comment on above: Result Comment: The 95% CI (Confidence Interval) PPV (Positive Predictive Value) for myocardial infarction in females is 38 pg/mL, in males 51 pg/mL. The results should be used in conjunction with clinical conditions of myocardial infarction. (Access High Sensitivity Troponin I Instructions For Use, Ob Hospitalist GroupJanuary 2018) Performed By: #### 2 [id number] #### [facility] [address] [place] [address] US Carotid Duplex Bilateralo n 05-02-2020 US [...] ECA (cm/sec): 199/15 Vert. Antegrade Yes Normal [facility] Auto Diffon 05-01-2020 Basophils/100 WBC (Bld) 0.4 % Normal 0.0-2.0 [facility] Comment on above: Order Comment: Order Added by Discern Expert. Performed By: #### 2 587606, [id number], 5247526, 8770383 #### [facility] Laboratory [address] [place] [address] Basophils/Leukocytes Auto (Bld) [Pure # fraction] 0.0 E9/L Normal 0.0-0.2 [facility] Comment on above: Order Comment: Order Added by Discern Expert. Performed By: #### 2 085526, [id number], 3951480, 9667554 #### [facility] [address] [place] [address] Eosinophils/100 WBC (Bld) 1.2 % Normal 0.0-8.0 [facility] Comment on above: Order Comment: Order Added by Discern Expert. Performed By: #### 2 522484, 31214251, 2547090, 4070040 #### [facility] Laboratory [address] [place] [address] Eosinophils/Leukocytes Auto (Bld) [Pure # fraction] 0.1 E9/L Normal 0.0-0.5 [facility] Comment on above: Order Comment: Order Added by Discern Expert. Performed By: #### 2 749351, 34931448, 6472092, 2121645 #### [facility] Laboratory [address] [place] [address] Lymphocytes/100 WBC (Bld) 9.7 % Low 14.0-50.0 [facility] Comment on above: Order Comment: Order Added by Discern Expert. Performed By: #### 2 901322, 95974645, 1651519, 9537825 #### [facility] [address] [place] [address] Lymphocytes/Leukocytes Auto (Bld) [Pure # fraction] 1.0 E9/L Normal 1.0-4.0 [facility] Comment on above: Order Comment: Order Added by Discern Expert. Performed By: #### 2 421416, 48519234, 0519157, 6719671 #### [facility] [address] [place] [address] Monocytes/100 WBC (Bld) 4.2 % Normal 4.0-14.0 [facility] Comment on above: Order Comment: Order Added by Discern Expert. Performed By: #### 2 504555, 45698737, 3716412, 9571609 #### [facility] [address] [place] [address] Monocytes/Leukocytes Auto (Bld) [Pure # fraction] 0.4 E9/L Normal 0.2-1.0 [facility] Comment on above: Order Comment: Order Added by Discern Expert. Performed By: #### 2 566823, 12188300, 6169432, 0203148 #### [facility] [address] [place] [address] Neutrophils/100 WBC (Bld) 84.5 % High 36.0-75.0 [facility] Comment on above: Order Comment: Order Added by Discern Expert. Performed By: #### 2 669103, 53478861, 2656820, 5808677 #### [facility] [address] [place] [address] Neutrophils/Leukocytes Auto (Bld) [Pure # fraction] 8.9 E9/L High 2.0-7.5 [facility] Comment on above: Order Comment: Order Added by Discern Expert. Performed By: #### 2 615288, 41365590, 1797321, 5179595 #### [facility] [address] [place] [address] [facility] 05-01-2020 Calcium [Mass/Vol] 8.9 mg/dL Normal 8.9-11.1 [facility] Comment on above: Performed By: #### 2 372177, 47812906, 2748048, 9166067 #### [facility] [address] [place] [address] Anion gap [Moles/Vol] 10 mmol/L Normal 6-16 [facility] Comment on above: Performed By: #### 2 978633, 42263182, 7858640, 9113625 #### [facility] [address] [place] [address] Chloride [Moles/Vol] 103 mmol/L Normal 101-111 [facility] Comment on above: Performed By: #### 2 698276, 74763510, 3332634, 8285256 #### [facility] [address] [place] [address] CO2 [Moles/Vol] 24 mmol/L Normal 21-31 [facility] Comment on above: Performed By: #### 2 796749, 69471317, 7249904, 3534298 #### [facility] [address] [place] [address] Creatinine [Mass/Vol] 1.6 mg/dL High 0.5-1.3 [facility] Comment on above: Performed By: #### 2 180773, 22589213, 6621674, 2864568 #### [facility] [address] [place] [address] Glucose [Mass/Vol] 167 mg/dL Normal 55-199 [facility] Comment on above: Result Comment: If t his glucose result represents a fasting glucose, interpretation should refer to the following reference range: 55-99 mg/dL Performed By: #### 2 503562, 52964025, 4670376, 1474245 #### [facility] [address] [place] [address] Potassium [Moles/Vol] 3.9 mmol/L Normal 3.5-5.3 [facility] Comment on above: Performed By: #### 2 279676, 31536075, 1857192, 2617293 #### [facility] [address] [place] [address] Sodium [Moles/Vol] 133 mmol/L Low 135-145 [facility] Comment on above: Performed By: #### 2 652974, 32207523, 3813890, 9036569 #### [facility] [address] [place] [address] Urea nitrogen [Mass/Vol] 34 mg/dL High 5-21 [facility] Comment on above: Performed By: #### 2 219318, 12437790, 9920056, 3220593 #### [facility] [address] [place] [address] Urea nitrogen/Creatinine [Mass ratio] 21 No Units High 10-20 [facility] Comment on above: Performed By: #### 2 076911, 89247673, 0995089, 3654138 #### [facility] [address] [place] [address] CBC w/ Auto Diffon 0 Erythrocyte distribution width (RBC) [Ratio] 13.0 % Normal 10.9-14.2 [facility] Comment on above: Performed By: #### 2 601653, 18323672, 2851644, 6997796 #### [facility] [address] [place] [address] Hematocrit (Bld) [Volume fraction] 32.4 % Low 34.0-46.0 [facility] Comment on above: Performed By: #### 2 299766, 74319131, 7655039, 4666270 #### [facility] [address] [place] [address] Hemoglobin (Bld) [Mass/Vol] 11.2 g/dL Low 12.0-16.0 [facility] Comment on above: Performed By: #### 2 609217, 18886461, 3950851, 8527449 #### [facility] [address] [place] [address] MCH (RBC) [Entitic mass] 29.6 pg Normal 27.0-34.0 [facility] Comment on above: Performed By: #### 2 520589, 02821429, 2577225, 0957552 #### [facility] [address] [place] [address] MCHC (RBC) [Mass/Vol] 34.6 g/dL Normal 31.4-36.0 [facility] Comment on above: Performed By: #### 2 321506, 84296873, 7629159, 3568858 #### [facility] [address] [place] [address] MCV (RBC) [Entitic vol] 85.5 fL Normal 80.0-100.0 [facility] Comment on above: Performed By: #### 2 305608, 79956270, 0907150, 3860283 #### [facility] [address] [place] [address] Platelet mean volume (Bld) [Entitic vol] 8.4 fL Normal 6.4-10.8 [facility] Comment on above: Performed By: #### 2 144142, 40096321, 8335700, 6630727 #### [facility] [address] [place] [address] Platelets (Bld) [#/Vol] 242.0 E9/L Normal 150.0-500.0 [facility] Comment on above: Performed By: #### 2 089015, 62027615, 4577730, 5834413 #### [facility] [address] [place] [address] RBC (Bld) [#/Vol] 3.8 E12/L Low 4.3-5.9 [facility] Comment on above: Performed By: #### 2 098525, 42225255, 2734729, 7350399 #### [facility] [address] [place] [address] WBC corrected for nucl RBC Auto (Bld) [#/Vol] 10.5 E9/L Normal 4.0-11.0 [facility] Comment on above: Performed By: #### 2 192378, 56146890, 8585586, 9465540 #### [facility] [address] [place] [address] Capillary Glucose POCon 04-04 Glucose [Mass/Vol] 84 mg/dL Normal 55-99 [facility] Comment on above: Result Comment: Repe at Test Performed By: #### 2 [id number] #### [facility] [address] [place] [address] Glucose [Mass/Vol] 88 mg/dL Normal 55-99 [facility] Comment on above: Result Comment: Repe at Test Performed By: #### 2 01426723 #### [facility] [address] [place] [address] Coding Summary.on 05-01-2020 Coding Summary. CODING DATE: 05/01/2020 FINAL [facility] STATUS: Home (Routine DC) PAYOR: [...] for screening for other viral diseases PYMT [facility] APC STAT DESCRIPTION DOCTOR NAME DATE NOTE: The code number assigned matches the documented diagnosis and / or procedure in the patient's chart. However, the narrative phrase printed from the coding software may appear abbreviated, or result in slightly different terminology. Coded By: Gabriela Houston CphT Date Saved: 05/01/2020 08:36 am Normal [facility] Coding Summary. CODING DATE: 04/25/2020 FINAL [facility] STATUS: Home (Routine DC) PAYOR: [...] CphT Date Saved: 04/25/2020 04:17 pm Normal [facility] Consent for Treatmenton 04-04 Consent for Treatment [id number] #1.00CD:127 [facility] Consent for Treatment [id number] #1.00CD:127 [facility] H&P Updateon 05-01-2020 H&P Update [id number] #1.00CD:127 [facility] Main OR PACU I Recordon 04-04 Main OR PACU I Record PACU Phase I Document Type FT Summary Primary Physician: David Talamantes DO Finalized Date/Time: 05/01/20 18:04:55 Pt. Name: CLAUDIA ESTRELLA/Sex: 1950 Female Med Rec #: [id number] Physician: David Talamantes DO Financial #: [id number] Pt. Type: A Room/Bed: [place] [address] Admit/Disch: 05/01/20 11:43:14 - Institution: Case Times [...] By: Ju Bates RN 05/01/20 18:04 Normal [facility] Main OR PACU II Recordon Main OR PACU II Record PACU Phase II Document Type FT Summary Primary Physician: David Talamantes DO Finalized Date/Time: 05/01/20 20:09:08 Pt. Name: CLAUDIA ESTRELLA/Sex: 1950 Female Med Rec #: [id number] Physician: David Talamantes DO Financial #: [id number] Pt. Type: O Room/Bed: [facility] Admit/Disch: 05/01/20 11:43:14 - Institution: Case Times [...] Signed By: Yessy Curran RN 05/01/20 20:09 [facility] Main OR Preoperative Recordo n 05-01-2020 Main OR Preoperative Record PreOp Document Type FT Summary Primary Physician: David Talamantes DO Finalized Date/Time: 05/01/20 14:45:06 Pt. Name: CLAUDIA ESTRELLA /Sex: 1950 Female Med Rec #: [id number] Physician: David Talamantes DO Financial #: [id number] Pt. Type: A Room/Bed: [place] [address] Admit/Disch: 05/01/20 11:43:14 - Institution: Case Times [...] By: Viky Hernández RN 05/01/20 14:45 Normal [facility] Monitor Recordon 05-01-2020 Monitor Record [id number] 0#1.00CD:127 Normal [facility] Monitor Record [id number] 8#1.00CD:127 [facility] Outside Radiologyon 05-01-20 20 Outside Radiology [id number] #1.00CD:127 [facility] Outside Recordson 05-01-2020 Outside Records [id number] #1.00CD:127 Normal [facility] Progress Note-Nurseon 2019 Progress Note-Nurse At 1653--Gisela poct stated she needed a nurse in bay 12 stat. This nurse arrived to room. Patient stated she has CP 10/10 midsternal, heaviness. Jhoana RN at bedside as well. Vitals obtained. Dr. Luis Carlos zacarias stat. 1655--1 dose 0.4 mg Nitro given [...] voicemail. 1834--This nurse spoke with Dr. Carter (electronic security specialist physician), informed Dr. Carter reason for admission and patient's room number. Dr. Aldridge at bedside at 170--Physician looked at patient EKG strip that was printed. Normal [facility] Progress Note-Nurse 1528: pt. medicated with 0.4mg [...] dtr. also at bedside and updated. Normal [facility] Troponin 0 Hr.on 05-01-2020 Troponin I.cardiac [Mass/Vol] 4.10 pg/mL Low 10.10-27.10 [facility] Comment on above: Result Comment: The 95% CI (Confidence Interval) PPV (Positive Predictive Value) for myocardial infarction in females is 38 pg/mL, in males 51 pg/mL. The results should be used in conjunction with clinical conditions of myocardial infarction. (Access High Sensitivity Troponin I Instructions For Use, [facility], January 2018) Performed By: #### 2 [id number] #### [facility] Laboratory [address] [place] [address] eGFRon 05-01-2020 GFR/1.73 sq M.predicted among blacks MDRD (S/P/Bld) [Vol rate/Area] 39 mL/min/1.73 m2 Low >=59 [facility] Comment on above: Order Comment: Order added by Discern Expert. Result Comment: eGFR is race adjusted. AA=. Performed By: #### 2 831436, 19583245, 0271531, 2630191 #### [facility] [address] [place] [address] GFR/1.73 sq M.predicted among non-blacks MDRD (S/P/Bld) [Vol rate/Area] 32 mL/min/1.73 m2 Low >=59 [facility] Comment on above: Order Comment: Order added by Discern Expert. Result Comment: Managed Care Provider jayden kidney disease could be indicated at eGFR's of less than 60 mL/min/1.73m2. Kidney failure is indicated at less than 15 mL/min/1.73m2. Performed By: #### 2 676614, 66619526, 1429647, 9605121 #### [facility] [address] [place] [address] Coding Summary.on 04-28-2020 Coding Summary. CODING DATE: 04/28/2020 FINAL [facility] STATUS: Home (Routine DC) PAYOR: [...] CphT Date Saved: 04/28/2020 09:19 am Normal [facility] Outpatient Surgery Discharge Instructionon 04-28-2020 Outpatient Surgery Discharge Instruction [address] [address] Patient Discharge Instructions PERSON INFORMATION Name: CLAUDIA [...] Follow up: With: Address: When: David Talamantes [address] [place] [address] [facility] () Comments: Keep scheduled appointment Type Location Start [facility] 05/01/2020 2:15 PM 05/01/2020 2:55 PM Confirmed Pharmacy Information: Thank you for choosing [facility] HERE ARE THE MEDICATION CHANGES THAT OCCURRED DURING YOUR HOSPITAL STAY Medications to Continue Taking That Have Changed Other Medications START: cycloSPORINE ophthalmic (Restasis 0.05% ophthalmic emulsion) 1 Drops Both eyes 2 times a day. START: insulin glargine (Basaglar KaterineikPen) 15 Units Subcutaneous 3 times a day. [...] tab Oral Daily. PATIENT EDUCATION INFORMATION Instructions: [place], [place] [facility] DISCHARGE INSTRUCTIONS: KNEE ARTHROSCOPY [...] result of (more content not included)... Normal [facility] Consent for Procedure/Surger yon 04-27-2020 Consent for Procedure/Surgery [id number] 5#1.00CD:127 Normal [facility] Outside Recordson 04-27-2020 Outside Records [id number] 9#1.00CD:127 Normal [facility] Priority Order-Trina 2019 Priority Order-STAT Comment Invalid Interpretation Code [facility] Comment on above: Result Comment: Rece ived Performed at: [facility] [address] [place], [place] [id number] MD Bladimir Briones Performed By: #### 2 [id number] #### [facility] [address] [place] [address] SARS-CoV-2, NAAon 04-25-2020 SARS-CoV-2 (COVID-19) RNA JAYASHREE+probe Ql (Resp) Not detected Invalid Interpretation Code Not Detected [facility] Comment on above: Result Comment: This nucleic acid amplification test was developed and its performance characteristics determined by [employer]. Nucleic acid amplification tests include PCR and [...] detected) result in this assay. Performed at: [facility] [address] [facility] [place] [id number] MD Bladimir Briones Performed By: #### 2 [id number] #### [facility] [address] [place] [address] XR Chest 2 Viewson 0 XR Chest [...] M.D. Transcribed by: LUDIN Technologist: [place] Normal [facility] BUNon 04-24-2020 Urea nitrogen [Mass/Vol] 36 mg/dL High 5-21 [facility] Comment on above: Performed By: #### 1 [id number], 1685329, 3280183, 4467044, 1709775, 3004210 ####[facility] [address] [place] [address] CBC w/Indiceson 04-24-2020 Erythrocyte distribution width (RBC) [Ratio] 13.0 % Normal 10.9-14.2 [facility] Comment on above: Performed By: #### 1 [id number], 8589188, 7706787, 1051195, 1000901, 3533076 ####[facility] [address] [place] [address] Hematocrit (Bld) [Volume fraction] 34.1 % Normal 34.0-46.0 [facility] Comment on above: Performed By: #### 1 [id number], 3411127, 8822389, 3453210, 7357800, 4811247 ####[address] [address] Hemoglobin (Bld) [Mass/Vol] 11.6 g/dL Low 12.0-16.0 [facility] Comment on above: Performed By: #### 1 [id number], 7201236, 9390238, 9121137, 5212172, 9768856 ####[address] [address] MCH (RBC) [Entitic mass] 29.5 pg Normal 27.0-34.0 [facility] Comment on above: Performed By: #### 1 5233261, 3866812, 7067199, 3668785, 3776124, 4899544 ####[address] [address] MCHC (RBC) [Mass/Vol] 34.1 g/dL Normal 31.4-36.0 [facility] Comment on above: Performed By: #### 1 5394025, 1205470, 6608765, 1209014, 6829607, 4630266 ####[address] [address] MCV (RBC) [Entitic vol] 86.5 fL Normal 80.0-100.0 [facility] Comment on above: Performed By: #### 1 0943653, 9629206, 7860853, 5472587, 5587298, 0497875 ####[address] [address] Platelet mean volume (Bld) [Entitic vol] 9.4 fL Normal 6.4-10.8 [facility] Comment on above: Performed By: #### 1 [id number], 3847902, 9748101, 1740614, 6720404, 8440547 ####[address] [address] Platelets (Bld) [#/Vol] 246.0 E9/L Normal 150.0-500.0 [facility] Comment on above: Performed By: #### 1 1989235, 3636085, 5233541, 5083095, 0192660, 2164531 ####[facility] [address] [place] [address] RBC (Bld) [#/Vol] 3.9 E12/L Low 4.3-5.9 [facility] Comment on above: Performed By: #### 1 [id number], 6359421, 1480343, 2090809, 2876679, 4815047 ####[facility] [address] [place] [address] WBC corrected for nucl RBC Auto (Bld) [#/Vol] 10.0 E9/L Normal 4.0-11.0 [facility] Comment on above: Performed By: #### 1 8141415, 8187776, 9980028, 6269484, 8340919, 5478055 ####[facility] [address] [place] [address] Consent for Treatmenton 04-03 Consent for Treatment [id number] #1.00CD:127 Normal [facility] Creatinineon 04-24-2020 Creatinine [Mass/Vol] 1.6 mg/dL High 0.5-1.3 [facility] Comment on above: Performed By: #### 1 3371174, 9751384, 2617612, 2540457, 0886455, 0672497 ####[facility] [address] [place] [address] Glu Fastingon 04-24-2020 Glucose [Mass/Vol] 81 mg/dL Normal 55-99 [facility] Comment on above: Performed By: #### 1 1563059, 4588312, 0275828, 5675134, 9649581, 9949663 ####[facility] [address] [place] [address] Lyteson 04-24-2020 Anion gap [Moles/Vol] 13 mmol/L Normal 6-16 [facility] Comment on above: Performed By: #### 1 9573212, 4029696, 8428284, 1746203, 5216161, 8137328 ####[facility] [address] [place] [address] Chloride [Moles/Vol] 103 mmol/L Normal 101-111 [facility] Comment on above: Performed By: #### 1 3659222, 6724161, 7954482, 7612445, 2221194, 6895079 ####[facility] [address] [place] [address] CO2 [Moles/Vol] 26 mmol/L Normal 21-31 [facility] Comment on above: Performed By: #### 1 1662317, 5183603, 3193974, 7246143, 3063589, 6805271 ####[facility] [address] [place] [address] Potassium [Moles/Vol] 3.9 mmol/L Normal 3.5-5.3 [facility] Comment on above: Performed By: #### 1 8547287, 6802733, 0627113, 7558756, 9135572, 5736633 ####[facility] [address] [place] [address] Sodium [Moles/Vol] 138 mmol/L Normal 135-145 [facility] Comment on above: Performed By: #### 1 2005257, 6769042, 4312390, 0318839, 7133589, 5253240 ####[facility] [address] [place] [address] Physician Orderon 04-24-2020 Physician Order [id number] 3#1.00CD:127 Normal [facility] eGFRon 04-24-2020 GFR/1.73 sq M.predicted among blacks MDRD (S/P/Bld) [Vol rate/Area] 39 mL/min/1.73 m2 Low >=59 [facility] Comment on above: Order Comment: Order added by Discern Expert. Result Comment: eGFR is race adjusted. AA=. Performed By: #### 1 9692263, 8819232, 0111794, 6181067, 0198044, 2516450 ####[facility] [address] [place] [address] GFR/1.73 sq M.predicted among non-blacks MDRD (S/P/Bld) [Vol rate/Area] 32 mL/min/1.73 m2 Low >=59 [facility] Comment on above: Order Comment: Order added by Discern Expert. Result Comment: Managed Care Provider jayden kidney disease could be indicated at eGFR's of less than 60 mL/min/1.73m2. Kidney failure is indicated at less than 15 mL/min/1.73m2. Performed By: #### 1 [id number], 6655226, 7643052, 9333010, 6751438, 2292673 ####[facility] [address] [place] [address] Physician Orderon 04-13-2020 Physician Order [id number] 5#1.00CD:127 Normal [facility] Physician Orderon 04-10-2020 Physician Order [id number] 3#1.00CD:127 Normal [facility] Vital Signs Date Time Vital Sign Value Performing Clinician Facility 01-29-2025 11:37-0400 Body height 147.32 cm John Michelring DO Work Phone: [facility] 01-29-2025 11:37-0400 Body mass index (BMI) [Ratio] 26.5 kg/m2 John Perdomo DO Work Phone: [facility] 01-29-2025 11:37-0400 Body weight 57.6 kg John Perdomo DO Work Phone: [facility] 01-29-2025 11:37-0400 Diastolic blood pressure 50 mm[Hg] John Perdomo DO Work Phone: [facility] 01-29-2025 11:37-0400 Heart rate 72 /min John Perdomo DO Work Phone: [facility] 01-29-2025 11:37-0400 Respiratory rate 18 /min John Perdomo DO Work Phone: [facility] 01-29-2025 11:37-0400 SaO2% (BldA) [Mass fraction] 95 % John Perdomo DO Work Phone: [facility] 01-29-2025 11:37-0400 Systolic blood pressure 156 mm[Hg] John Perdomo DO Work Phone: [facility] 09-03-2024 15:36-0500 Body height 147.32 cm [facility] 09-03-2024 15:36-0500 Body mass index (BMI) [Ratio] 25.6 kg/m2 [facility] 09-03-2024 15:36-0500 Body temperature 99.3 [degF] [facility] 09-03-2024 15:36-0500 Body weight 55.56 kg [facility] 09-03-2024 15:36-0500 Diastolic blood pressure 66 mm[Hg] [facility] 09-03-2024 15:36-0500 Heart rate 73 /min [facility] 09-03-2024 15:36-0500 Respiratory rate 18 /min [facility] 09-03-2024 15:36-0500 SaO2% (BldA) [Mass fraction] 95 % [facility] 09-03-2024 15:36-0500 Systolic blood pressure 149 mm[Hg] [facility] 05-13-2024 15:30-0500 Body height 147.32 cm [facility] 05-13-2024 15:30-0500 Body mass index (BMI) [Ratio] 27.1 kg/m2 [facility] 05-13-2024 15:30-0500 Body temperature 97.5 [degF] [facility] 05-13-2024 15:30-0500 Body weight 58.96 kg [facility] 05-13-2024 15:30-0500 Diastolic blood pressure 74 mm[Hg] [facility] 05-13-2024 15:30-0500 Heart rate 72 /min [facility] 05-13-2024 15:30-0500 Respiratory rate 16 /min [facility] 05-13-2024 15:30-0500 SaO2% (BldA) [Mass fraction] 95 % [facility] 05-13-2024 15:30-0500 Systolic blood pressure 122 mm[Hg] [facility] 01-08-2024 13:03-0400 Body height 147.32 cm [facility] 01-08-2024 13:03-0400 Body mass index (BMI) [Ratio] 26.1 kg/m2 [facility] 01-08-2024 13:03-0400 Body temperature 98.6 [degF] [facility] 01-08-2024 13:03-0400 Body weight 56.75 kg [facility] 01-08-2024 13:03-0400 Diastolic blood pressure 62 mm[Hg] [facility] 01-08-2024 13:03-0400 Heart rate 69 /min [facility] 01-08-2024 13:03-0400 Respiratory rate 16 /min [facility] 01-08-2024 13:03-0400 SaO2% (BldA) [Mass fraction] 96 % [facility] 01-08-2024 13:03-0400 Systolic blood pressure 144 mm[Hg] [facility] 09-25-2023 15:52-0400 Body weight 58.74 kg [facility] 09-25-2023 15:52-0400 Diastolic blood pressure 60 mm[Hg] [facility] 09-25-2023 15:52-0400 Heart rate 65 /min [facility] 09-25-2023 15:52-0400 Systolic blood pressure 110 mm[Hg] [facility] 05-30-2023 15:40-0500 Body height 147.32 cm Geneva Mary Grace Other [facility] Other 05-30-2023 15:40-0500 Body mass index (BMI) [Ratio] 26.92 kg/m2 Geneva Mary Grace Other [facility] Other 05-30-2023 15:40-0500 Body temperature 97 [degF] Gneeva Mary Grace Other [facility] Other 05-30-2023 15:40-0500 Body weight 58.42 kg Geneva Mary Grace Other [facility] Other 05-30-2023 15:40-0500 Diastolic blood pressure 71 mm[Hg] Geneva Mary Grace Other [facility] Other 05-30-2023 15:40-0500 Respiratory rate 18 /min Geneva Mary Grace Other [facility] Other 05-30-2023 15:40-0500 SaO2% (BldA) [Mass fraction] 97 % Geneva Mary Grace Other [facility] Other 05-30-2023 15:40-0500 Systolic blood pressure 153 mm[Hg] Geneva Mary Grace Other [facility] Other 01-30-2023 15:40-0400 Body height 147.32 cm Geneva Mary Grace Other [facility] Other 01-30-2023 15:40-0400 Body mass index (BMI) [Ratio] 26.83 kg/m2 Geneva Mary Grace Other [facility] Other 01-30-2023 15:40-0400 Body temperature 97.7 [degF] Geneva Mary Grace Other [facility] Other 01-30-2023 15:40-0400 Body weight 58.24 kg Geneva Mary Grace Other [facility] Other 01-30-2023 15:40-0400 Diastolic blood pressure 67 mm[Hg] Geneva Mary Grace Other [facility] Other 01-30-2023 15:40-0400 Respiratory rate 18 /min Geneva Mary Grace Other [facility] Other 01-30-2023 15:40-0400 SaO2% (BldA) [Mass fraction] 98 % Geneva Mary Grace Other [facility] Other 01-30-2023 15:40-0400 Systolic blood pressure 136 mm[Hg] Geneva Mary Grace Other [facility] Other 08-30-2022 14:40-0500 Body height 147.32 cm Geneva Mary Grace Other [facility] Other 08-30-2022 14:40-0500 Body mass index (BMI) [Ratio] 26.29 kg/m2 Geneva Mary Grace Other [facility] Other 08-30-2022 14:40-0500 Body temperature 98.6 [degF] Geneva Mary Grace Other [facility] Other 08-30-2022 14:40-0500 Body weight 57.06 kg Geneva Mary Grace Other [facility] Other 08-30-2022 14:40-0500 Diastolic blood pressure 72 mm[Hg] Geneva Mary Grace Other [facility] Other 08-30-2022 14:40-0500 Respiratory rate 18 /min Geneva Mary Grace Other [facility] Other 08-30-2022 14:40-0500 SaO2% (BldA) [Mass fraction] 96 % Geneva Mary Grace Other [facility] Other 08-30-2022 14:40-0500 Systolic blood pressure 139 mm[Hg] Geneva Mary Grace Other [facility] Other 05-30-2022 11:40-0500 Body height 147.32 cm Geneva Mary Grace Other [facility] Other 05-30-2022 11:40-0500 Body mass index (BMI) [Ratio] 27.25 kg/m2 Geneva Mary Grace Other [facility] Other 05-30-2022 11:40-0500 Body temperature 96.2 [degF] Geneva Mary Grace Other [facility] Other 05-30-2022 11:40-0500 Body weight 59.15 kg Geneva Mary Grace Other [facility] Other 05-30-2022 11:40-0500 Diastolic blood pressure 71 mm[Hg] Geneva Mary Grace Other [facility] Other 05-30-2022 11:40-0500 SaO2% (BldA) [Mass fraction] 97 % Geneva Mary Grace Other [facility] Other 05-30-2022 11:40-0500 Systolic blood pressure 151 mm[Hg] Geneva Mary Grace Other [facility] Other 01-27-2022 12:20-0400 Body height 147.32 cm Geneva Mary Grace Other [facility] Other 01-27-2022 12:20-0400 Body mass index (BMI) [Ratio] 26.83 kg/m2 Geneva Mary Grace Other [facility] Other 01-27-2022 12:20-0400 Body temperature 98 [degF] Geneva Mary Grace Other [facility] Other 01-27-2022 12:20-0400 Body weight 58.24 kg Geneva Mary Grace Other [facility] Other 01-27-2022 12:20-0400 Diastolic blood pressure 69 mm[Hg] Geneva Mary Grace Other [facility] Other 01-27-2022 12:20-0400 Respiratory rate 18 /min Geneva Mary Grace Other [facility] Other 01-27-2022 12:20-0400 SaO2% (BldA) [Mass fraction] 96 % Geneva Mary Grace Other [facility] Other 01-27-2022 12:20-0400 Systolic blood pressure 136 mm[Hg] Geneva Mary Grace Other [facility] Other 09-20-2021 16:00-0400 Body height 147.32 cm Geneva Mary Grace Other [facility] Other 09-20-2021 16:00-0400 Body mass index (BMI) [Ratio] 27.42 kg/m2 Geneva Mary Grace Other [facility] Other 09-20-2021 16:00-0400 Body temperature 97.6 [degF] Geneva Mary Grace Other [facility] Other 09-20-2021 16:00-0400 Body weight 59.51 kg Genvea Mary Grace Other [facility] Other 09-20-2021 16:00-0400 Diastolic blood pressure 76 mm[Hg] Geneva Mary Grace Other [facility] Other 09-20-2021 16:00-0400 Respiratory rate 18 /min Geneva Mary Grace Other [facility] Other 09-20-2021 16:00-0400 SaO2% (BldA) [Mass fraction] 97 % Geneva Mary Grace Other [facility] Other 09-20-2021 16:00-0400 Systolic blood pressure 169 mm[Hg] Geneva Mary Grace Other [facility] Other 05-18-2021 15:40-0500 Body height 147.32 cm Geneva Mary Grace Other [facility] Other 05-18-2021 15:40-0500 Body mass index (BMI) [Ratio] 26.5 kg/m2 Geneva Mary Grace Other [facility] Other 05-18-2021 15:40-0500 Body temperature 97.2 [degF] Geneva Mary Grace Other [facility] Other 05-18-2021 15:40-0500 Body weight 57.52 kg Geneva Mary Grace Other [facility] Other 05-18-2021 15:40-0500 Diastolic blood pressure 79 mm[Hg] Geneva Mary Grace Other [facility] Other 05-18-2021 15:40-0500 Respiratory rate 18 /min Geneva Mary Grace Other [facility] Other 05-18-2021 15:40-0500 SaO2% (BldA) [Mass fraction] 97 % Geneva Mary Grace Other [facility] Other 05-18-2021 15:40-0500 Systolic blood pressure 137 mm[Hg] Geneva Mary Grace Other [facility] Other Encounters Encounter Date Encounter Type Care Provider Facility Start: 04-07-2025 End: 04-07-2025 ambulatory [facility] Start: 03-23-2025 End: 03-24-2025 Refeve Teran DO Work Phone: [facility] Comment on above: 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, mild stage Start: 01-29-2025 End: 01-29-2025 ambulatory John Perdomo DO Work Phone: [facility] Work Phone: Start: 01-29-2025 End: 01-29-2025 Patient encounter procedure Geneva Jenkins MD -[facility] [place] Work Phone: Start: 01-20-2025 Non-patient / Non-visit Geneva Jenkins MD -[facility] Work Phone: Start: 11-26-2024 End: 11-26-2024 Bamboo flowsheet Mirta Avileser DO Work Phone: [facility] Start: 11-26-2024 End: 11-26-2024 Bamboo flowsheet Mirta Avileser DO Work Phone: [facility] Start: 11-26-2024 End: 11-26-2024 ambulatory MIRTA TERAN Not Available Start: 09-16-2024 End: 09-16-2024 ambulatory [facility] Start: 09-03-2024 End: 09-03-2024 ambulatory [facility] Work Phone: Start: 09-03-2024 End: 09-03-2024 Patient encounter procedure [facility] [place] Work Phone: Start: 08-26-2024 Non-patient / Non-visit [facility] Work Phone: Start: 05-15-2024 End: 05-15-2024 Bamboo flowsheet Mirta Avileser DO Work Phone: [facility] Start: 05-15-2024 End: 05-15-2024 Bamboo flowsheet Mirta Teran DO Work Phone: [facility] Start: 05-15-2024 End: 05-15-2024 ambulatory MIRTA TERAN Not Available Start: 05-13-2024 End: 05-13-2024 ambulatory [facility] Work Phone: Start: 05-13-2024 End: 05-13-2024 Patient encounter procedure [facility] [place] Work Phone: Start: 05-09-2024 Non-patient / Non-visit [facility] Work Phone: Start: 01-08-2024 End: 01-08-2024 ambulatory [facility] Work Phone: Start: 01-08-2024 End: 01-08-2024 Patient encounter procedure [facility]ph[facility] Work Phone: Start: 01-01-2024 Non-patient / Non-visit [facility] [facility] [employer] Work Phone: Start: 09-25-2023 End: 09-25-2023 ambulatory [facility] Work Phone: Start: 09-25-2023 End: 09-25-2023 Patient encounter procedure [facility]ph[facility] Work Phone: Start: 08-08-2023 End: 08-08-2023 ambulatory Geneva Mary Grace Other [facility] Other Start: 08-08-2023 Telephone encounter Geneva Mary Grace [facility] Start: 07-11-2023 End: 07-11-2023 ambulatory Geneva Mary Grace Other [facility] Other Start: 07-11-2023 Telephone encounter Geneva Mary Grace [facility] Start: 05-30-2023 End: 05-30-2023 ambulatory Geneva Mary Grace Other [facility] Other Start: 05-30-2023 Office outpatient visit 25 minutes Geneva Mary Grace [facility] Start: 05-23-2023 End: 05-23-2023 ambulatory Geneva Mary Grace Other [facility] Other Start: 05-23-2023 Telephone encounter Geneva Mary Grace [facility] Start: 01-30-2023 End: 01-30-2023 ambulatory Geneva Mary Grace Other [facility] Other Start: 01-30-2023 Encounter by compute r link Geneva Mary Grace [facility] Start: 01-30-2023 Office outpatient visit 25 minutes Geneva Mary Grace [facility] Start: 10-27-2022 End: 10-27-2022 ambulatory Geneva Mary Grace Other [facility] Other Start: 10-27-2022 Telephone encounter Geneva Mary Grace [facility] Start: 10-26-2022 End: 10-27-[address] JOHN PERDOMO Facility:[facility] Start: 08-30-2022 End: 08-30-2022 ambulatory Geneva Mary Grace Other [facility] Other Start: 08-30-2022 Office outpatient visit 25 [...] End: 05-30-2022 ambulatory Geneva Mary Grace Other [facility] Other Start: 05-30-2022 Office outpatient visit 25 minutes Geneva Mary Grace [facility] Start: 05-27-2022 End: 05-28-[address] JOHN PERDOMO Facility:[facility] Start: 05-23-2022 Telephone encounter Geneva Mary Grace [facility] Start: 05-23-2022 End: 05-24-[address] JOHN PERDOMO [employer] Other Start: 05-14-2022 End: 05-15-2022 ambulatory KWAN ROSALES Facility:[facility] Start: 05-12-2022 End: 05-12-2022 ambulatory Geneva Mary Grace Other [facility] Other Start: 05-12-2022 Telephone encounter Geneva Mary Grace [facility] Start: 05-11-2022 End: 05-12-2022 ambulatory KWAN ROSALES Facility:[facility] Start: 03-17-2022 End: 03-18-[address] JOHN PERDOMO Facility:[facility] Start: 01-27-2022 End: 01-27-2022 ambulatory Geneva Mary Grace Other [facility] Other Start: 01-27-2022 Office outpatient visit 25 minutes Geneva Mary Grace [facility] Start: 01-21-2022 End: 01-22-[address] JOHN PERDOMO Facility: Start: 01-17-2022 End: 01-18-[address] JOHN PERDOMO Facility: Start: 01-13-2022 End: 01-13-2022 ambulatory Geneva Mary Grace Other [facility] Other Start: 01-13-2022 Telephone encounter Geneva Mary Grace [facility] Start: 12-16-2021 Telephone encounter Geneva Mary Grace [facility] Start: 12-16-2021 End: 12-17-[address] JOHN PERDOMO [place] [employer] Other Start: 12-09-2021 End: 12-10-2021 ambulatory JOHN PERDOMO Facility:[facility] Start: 12-08-2021 End: 12-08-2021 ambulatory Geneva Mary Grace Other [facility] Other Start: 12-08-2021 Telephone encounter Geneva Mary Grace [facility] Start: 12-07-2021 End: 12-07-[address] JOHN PERDOMO Facility:[facility] Start: 12-06-2021 End: 12-07-[address] JOHN PERDOMO Facility:[facility] Start: 12-01-2021 End: 12-02-[address] JOHN PERDOMO Facility:[facility] Start: 11-19-2021 End: 11-20-[address] JOHN PERDOMO Facility:[facility] Start: 11-01-2021 End: 11-01-2021 ambulatory Geneva Mary Grace Other [facility] Other Start: 11-01-2021 Encounter by Next[employer] r link Geneva Mary Grace [facility] Start: 10-28-2021 End: 10-28-2021 ambulatory Geneva Mary Grace Other [facility] Other Start: 10-28-2021 Telephone encounter Geneva Mary Grace [facility] Start: 10-13-2021 End: 10-13-2021 ambulatory Geneva Mary Grace Other [facility] Other Start: 10-13-2021 Encounter by Next[employer] r link Geneva Mary Grace [facility] Start: 10-06-2021 End: 10-06-2021 ambulatory Geneva Mary Grace Other [facility] Other Start: 10-06-2021 Telephone encounter Geneva Mary Grace [facility] Start: 09-21-2021 End: 09-21-2021 ambulatory Geneva Mary Grace Other [facility] Other Start: 09-21-2021 Telephone encounter Geneva Mary Grace [facility] Start: 09-20-2021 End: 09-20-2021 ambulatory Geneva Mary Grace Other [facility] Other Start: 09-20-2021 Office outpatient visit 25 minutes Geneva Mary Grace [facility] Start: 08-01-2021 End: 08-01-2021 ambulatory Geneva Mary Grace Other [facility] Other Start: 08-01-2021 Encounter by NextVR r link Geneva Mary Grace [facility] Start: 07-18-2021 End: 07-18-2021 ambulatory Geneva Mary Grace Other [facility] Other Start: 07-18-2021 Encounter by Next[employer] r link Geneva Mary Grace [facility] Start: 05-18-2021 End: 05-18-2021 ambulatory Geneva Mary Grace Other [facility] Other Start: 05-18-2021 Office outpatient visit 25 minutes Geneva Mary Grace [facility] Procedures Date Procedure Procedure Detail Performing Clinician Start: 11-26-2024 Visual field xm uni/ bi w/interp extended exam Mirta Teran DO Work Phone: Start: 11-26-2024 End: 11-26-2024 [facility] medical xm&eval comprhnsv estab pt 1/> Corneal scar, right eye Mirta Teran DO Work Phone: Comment on above: Corneal scar, right eye (Primary Dx); Dry eyes; 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 (CMS/HCC); Primary open angle glaucoma (POAG) of both eyes, mild stage Start: 05-15-2024 End: 05-15-2024 Computerized ophthalmic imaging optic nerve Mirta Teran DO Work Phone: Start: 05-15-2024 End: 05-15-2024 [facility] medical [employer]&eval Raynhnsv estab pt 1/> Primary open angle glaucoma [...] Treatment Date Care Activity Detail Author Start: 11-26-2025 Glaucoma screening Diabetes: R etinopathy Screening [facility] Start: 06-04-2025 End: 06-04-2025 Patient encounter procedure 06/04/2025 1:15 PM EST Office Visit [facility] [address] [place] [id number] Mirta Teran DO [address] [place] [address] [facility] Start: 05-15-2025 Glaucoma screening Diabetes: R etinopathy Screening [facility] Start: 03-03-2025 Influenza vaccination [facility] Start: 11-26-2024 End: 11-26-2024 Patient encounter procedure [facility] NB OPHT Comment on above: Arrived Start: 03-03-2024 Influenza vaccination Influenza Vacc ine (#1) [facility] Start: 10-08-2020 Hemoglobin A1c measurement Diabetes: Hemoglobin A1C [facility] Start: 1991 Screening for malign ant neoplasm of breast Mammogram [facility] Start: 1970 Pneumococcal Vaccine : 65+ Years (1 of 2 - PCV) Pneumococcal Vaccine: 65+ Years (1 of 2 - PCV) [facility] Start: 1970 Urine screening for protein Diabetes: Urine Protein Screening [facility] Start: 1957 Pneumococcal Vaccine : 65+ Years (1 of 2 - PCV) Pneumococcal Vaccine: 65+ Years (1 of 2 - PCV) [facility] Start: 1951 Medicare Annual Well ness (AWV) Medicare Annual Wellness (AWV) [facility] Start: 1950 Screening for malign ant neoplasm of colon [facility] Immunofixation for Urine Fir [facility] Renal function 1999 panel - Serum or Plasma [facility] Renal function 2000 panel - Serum or Plasma [facility] Renal function 2000 panel - Serum or Plasma [facility] Renal function 2000 panel - Serum or Plasma [facility] Renal function 2000 panel - Serum or Plasma [facility] Immunizations Immunization Date Immunization Notes Care Provider Inder burns NEGATED: Highlighted row has not occurred!06-05-2019 influenza, high dose seasonal, preservative-free Patient Objection Geneva Mary Grace Other [facility] Other Payers Date Payer Category Payer Private Health Insurance [facility] [id number] 2016 Medicare MEDICARE [id number] 1959 Medicare [id number] 1959 Unknown [id number] 1951 Unknown [id number] 2.16.840.1.368386.3.579.2. 647 1951 Unknown [id number] 2.16.840.1.317999.3.579.2. 593 1951 Unknown [id number] 2.16.840.1.452619.3.579.2. 593 1951 Unknown [id number] 2.16.840.1.041578.3.579.2. 593 1951 Unknown [id number] 2.16.840.1.917481.3.579.2. 593 1951 Unknown [id number] 2.16.840.1.514286.3.579.2. 593 1951 Unknown [id number] 2.16.840.1.192074.3.579.2. 593 1951 Unknown [id number] 2.16.840.1.975683.3.579.2. 593 1951 Unknown [id number] 2.16.840.1.730762.3.579.2. 593 1951 Unknown [id number] 2.16.840.1.605872.3.579.2. 593 1951 Unknown [id number] 2.16.840.1.881467.3.579.2. 593 1951 Unknown [id number] 2.16.840.1.262812.3.579.2. 593 1951 Unknown [id number] 2.16.840.1.628888.3.579.2. 593 1951 Unknown [id number] 2.16.840.1.498953.3.579.2. 593 1951 Unknown [id number] 2.16.840.1.292409.3.579.2. 593 1951 Unknown [id number] 2.16.840.1.385103.3.579.2. 593 1951 Unknown [id number] 2.16.840.1.547597.3.579.2. 593 1951 Unknown [id number] 2.16.840.1.919533.3.579.2. 593 1951 Unknown [id number] 2.16.840.1.769576.3.579.2. 593 1951 Unknown [id number] 2.16.840.1.285320.3.579.2. 593 1951 Unknown [id number] 2.16.840.1.423704.3.579.2. 593 1951 Unknown [id number] 2.16.840.1.647572.3.579.2. 1259 1951 Unknown [id number] 2.16.840.1.637681.3.579.2. 1259 Self-pay Self Pay [id number] Unknown Regular Insurance [id number] Social History Date Type Detail Facility Unknown if ever smoked [facility] [employer] Other Start: 05-15-2024 Sex Assigned At N [facility] [employer] Other Start: 11-23-2017 End: 09-26-2023 Tobacco smoking status NHIS Never smoked tobacco (finding) [facility] Start: 1950 Sex Assigned At Female F [facility] Start: 05-13-2024 End: 09-03-2024 Sex Female (finding) [facility] Start: 09-26-2023 Tobacco use and exposure Smokeless tobacco non-user [facility] Start: 05-15-2024 Alcoholic beverage intake Lifetime non-drinker (finding) [facility] Start: 05-15-2024 History of Social function [facility] Start: 09-26-2023 Alcohol Comment caffeine intak e: 1-2 cups per day soda/pop 1-2 cans per week [facility] Start: 05-01-2023 Gender identity Identifies as female gender (finding) [facility] Clinical Notes 04-27-2020 to 04-07-2025 Mirta Teran DO - 11/26/2024 2:00 PM Chrissy Teran, DO - 05/15/2024 1:30 PM EST Note Date & Type Note Facility 04-07-2025 Note [place] [facility] - [facility] Subjective Claudia Estrella is a 74 [...] abdomen, coughing, and a whistling sound with breathing out. Patient had dexa scan which showed osteoporosis [...] kg (127 lb) SpO2 96% BMI 28.47 kg/m??? Smoking Status Never BSA 1.51 m??? Physical Exam Constitutional: Appearance: She is [...] Skin: General: Skin is warm and dry. Neurologi (more content not included)... [facility] 11-26-2024 Note Right Eye Reliability was poor. Progression has been stable. Foveal threshold was normal. Findings include superior nasal step defect, inferior nasal step defect, central scotoma. Left Eye Reliability was borderline. Progression has been stable. Foveal threshold was normal. Findings include superior arcuate defect, inferior arcuate defect, central scotoma. [facility] 11-26-2024 History of Present illness Narrative Images from [...] tears were recommended. documented in this encounter [facility] 09-16-2024 Note [place] [facility] - [facility] Subjective Claudia Estrella is a 74 y.o. year old female patient being seen for follow up 6 mo follow up CAD, chronic diastolic heart failure, and hypertension. Had labs last month for nephrology. She only had 1 tablet left of metoprolol (50mg) and took it yesterday. Hasn't had any today. She was told by [facility] that she can't get it until . [...] Erythromycin Base Hydromorphone (more content not included)... [facility] 05-15-2024 Note Right Eye Quality was good. Scan locations included subfoveal. Progression has been stable. Findings include abnormal foveal contour, intraretinal fluid, subretinal fluid. Left Eye Quality was good. Scan locations included subfoveal. Progression has been stable. Findings include abnormal foveal contour. Notes Area of atrophy w/ retinal pigment epithelium (RPE) tear [facility] 05-15-2024 History of Present illness Narrative [...] tears were recommended. documented in this encounter [facility] 05-30-2023 Evaluation note Encounter Date Diagnosis [...] has adequate Iron stores. Continue oral iron. [facility] Other 07-31-2023 Evaluation note* Encounter Date Diagnosis [...] has adequate Iron stores. Continue oral iron. [facility] Other 02-28-2023 Evaluation note* Encounter Date Diagnosis [...] past. Will defer this to the PCP. [facility] Other 11-28-2022 Evaluation note* Encounter Date Diagnosis [...] an adequate Iron stores. Continue oral iron. [facility] Other 11-21-2022 Evaluation note* Encounter Date Diagnosis Assessment Notes Treatment Notes Treatment Clinical Notes May, CKD (chronic kidney disease) stage 4, GFR 15-29 ml/min (ICD-10 - N18.4) [facility] Other 07-28-2022 Evaluation note* Encounter Date Diagnosis [...] an adequate Iron stores. Continue oral iron. [facility] Other 03-22-2022 Evaluation note* Encounter Date Diagnosis Assessment Notes Treatment Notes Treatment Clinical Notes Aug, Hypokalemia (ICD-10 - E87.6) [facility] Other 03-21-2022 Evaluation note* Encounter Date Diagnosis [...] an adequate [employer] stores. Continue oral iron. [facility] Other 01-16-2022 Evaluation note* Encounter Date Diagnosis Assessment Notes Treatment Notes Treatment Clinical Notes Jul, Hyperuricemia (ICD-1 0 - E79.0) [facility] Other 11-16-2021 Evaluation note* Encounter Date Diagnosis [...] an adequate Iron stores. Continue oral iron. [facility] Other 11-02-2020 NoteRounds at this time with [...] MURPHY Amor notified Taylor Fisher & Maryan Lopez.[facility] Center[facility]:Result Comment: Electronically Signed By: Zuleyma Shin RN\.br\Date and Time Signed: 05/04/20 13:53 [id number] NoteBasic Information Cardiology Progress Subjective Cardiology consulted over weekend for chest discomfort post operatively. Her EKG was non-acute and troponin trended negative. She does have a job training specialist and reportedly had stress testing in [...] mg/dL High (05/04/20 12:12:00) POC Device SN: [id number] (05/04/20 12:12:00) POC Username: NESHA COTA (05/04/20 [...] prefers all testing to be performed at [facility]. Faxed notes to her primary job training specialist's office, Dr Fish. Attempted to schedule stress testing with [facility] palacios. Ordered: EC Stress Echo Complete w/ Contrast 2. Hypertension (I10: Essential (primary) hypertension) Continue current medications and follow up with primary job training specialist on discharge. 3. Diabetes (E11.9: Type [...] discuss this management further with her primary job training specialist, but agreeable to starting statin for now. Patient is offered in-patient stress echocardiogram but declines as she wants to be discharged. She is offered out patient stress testing at [facility] tomorrow am and she prefers to have this done at [facility]. Per Central Scheduling at [facility], Dobutamine Stress Echo's are not performed at the facility. She will have close FU with Dr Fish to move forward with testing. D/W Dr Guzmán. Faxed info from [facility] Hospital stay to her primary job training specialist. Attestation Discussed patient findings and plan [...] tab(s), Oral, Bedtime saturnino (more content not included)...[facility] CenterComment on above: Result Comment: Electronically Signed By: Trudy SUAZO CNP\.br\Date and Time Signed: 05/04/20 13:15 EST\.br\Electronically Co-Signed By: Jay Jay Ramírez MD\.br\Date and Time Co-Signed: 05/04/20 13:19 [id number] NoteIV removed. 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 patient and patients daughter verbalized understanding of discharge teaching. patient refused flu vaccination. patient did not verbalize any questions or concerns atthis time.[facility]11[facility] Note Admission Information Admitting Physician - JUN [...] another day versus following up with her job training specialist and she has opted to do the latter. This is reasonable as she is chest pain-free at rest as well as on exertion. Patient is already on lisinopril, metoprolol, aspirin. Lipitor 20 mg was added for further risk reduction. She will follow-up with her primary job training specialist Dr. Fish. Regarding her recent Ortho surgery she will do weightbearing activity as tolerated and use crutchesfor assistance with ambulation. Dr. Kushal Guzmán Hospitalist This report was transcribed using voice recognition software. Every effort was made to ensure accuracy, however, inadvertently computerized brush maker machine mistakes may be present. Significant Findings POWERSCRIBE [...] pain) Ordered: Hospital Discharge Day 30 Min/Less 88327 2. Hypertension (I10: Essential (primary) hypertension) Ordered: Hospital Discharge Day 30 Min/Less 32125 3. Diabetes (E11.9: Type 2 diabetes mellitus without complications) Ordered: atorvastatin, 20 mg = 1 tab(s), Oral, Bedtime, # 30 tab(s), Refills(s) 1, Pharmacy: [facility]/pharmacy #[id number], 141.5, cm, 04/24/20 13:16:00 EDT, Height/Length Dosing, 69, kg, 05/02/20 5:50:00 EDT, Weight Dosing Hospital Discharge Day 30 Min/Less 94724 4. Acute medial meniscus tear of left knee (S83.242A: Other tear of medial meniscus, current injury, left knee, initial encounter) Ordered: Hospital Discharge Day 30 Min/Less 39703 5. Localized osteoarthritis of left knee (M17.12: Unilateral primary osteoarthritis, left knee) Ordered: Hospital Discharge Day 30 Min/Less 21461 6. No contraindication to deep vein thrombosis (DVT) prophylaxis (Z78.9: Other specified health status) Ordered: Hospital Discharge Day 30 Min/Less 21644 Bruit (R09.89: Other specified symptoms and signs [...] With When Contact Information Follow up with Post Graduate Intern Within 1 week Additional Instructions: JOHN PERDOMO [employer] [place] [address]- Business (1) Additional Instructions: David Talamantes [address] [place] [id number]- [employer] (1) Additional Instructions: Keep scheduled (more content not included)...[facility] CenterComment on above:Result Comment: Electronically Signed By: Kushal GUZMÁN MD\.br\Date and Time Signed: 05/04/20 12:[id number] Amir rounded with patient earlier. CRM [...] time. Anticipated discharge 05/04/2020 home. CRM to follow.[facility] CenterComment on above:Result Comment: Electronically Signed By: Ab WU, Terri Ramirez\.br\Date and Time Signed: 05/02/20 10:06 [id number] NoteReason for Consultation Chest pain postoperatively History of Present Illness Mrs. Estrella is a very pleasant 70-year-old diabetic female with hypertension, unknown cholesterol, previously seen by job training specialist Dr. Fish in September 2019 for [...] testing apparently took place in a private job training specialist office, so I am unsure whether [...] test in September 2019 at a private job training specialist 's office, reportedly LV dysfunction per [...] she undergo a dobutami (more content not included)...[facility] CenterComment on above:Result Comment: Electronically Signed By: Eleuterio VIGIL, John Olson\.br\Date and Time Signed: 05/02/20 08:35 [id number] NoteBasic Information Accompanied by: Family member Source of History: Self Present at Bedside: Family member Referral Source: Recovery room History Limitation: None Chief Complaint chest pain History of Present Illness Pt is a 70 F PMH HTN, HLD admitted from PACU. pt had a repair of a left medial meniscus tear with Dr. Talamantes of [facility]. Pt was in PACU recovering, had a [...] 84 mg/dL (05/01/20 16:07:00) POC Device SN: [id number] (05/01/20 16:07:00) POC Username: ALEXIA HALL (05/01/20 16:07:00) Diagnostic Results EKG NSR [address]-T wave changes Images No qualifying data available. Assessment/Plan 1. Other chest pain (R07.89: Other chest pain) - possible ACS, risk factors include DM, HTN, obesity - telemetry, troponin - ASA, fasting lipid profile - consult [facility] cardiology 2. Hypertension (I10: Essential (primary) [...] acetaminophen 325 mg Tab (more content not included)...[facility] CenterComment on above:Result Comment: Electronically Signed By: JUN VIGIL, Nhung\.br\Date and Time Signed: 05/01/20 18:30 [id number] Note [id number]:127[facility] Evaluation noteNo [employer] Other Evaluation note* Diagnosis Onset Date Resolution Status Anemia of renal disease acut e CKD (chronic kidney disease) stage 4, GFR 15-29 ml/min acute Hyperlipidemia acute [id number] acute Hyperuricemia acute Hypokalemia acute Microscopic hematuria acute Secondary hyperparathyroidism acute Type 2 diabetes mellitus wit h diabetic chronic kidney disease acute [facility] Work Phone: Evaluation note* Diagnosis Onset Date Resolution Status Admit Date Anemia of renal disease acute N 2023 3:17pm CKD (chronic kidney disease) stage 4, GFR 15-29 ml/min acute May 3:17pm Hyperlipidemia acute May 032023 3:17pm Hypertensive chronic kidney disease with stage 1 through stage 4 chronic ki acute May 13, 2 024 3:17pm Hyperuricemia acute May 132023 3:17pm Hypokalemia acute May 3:17pm Microscopic hematuria acute May 3:17pm Secondary hyperparathyroidism acute May 13, 2024 3:17pm Type 2 diabetes mellitus wit h diabetic chronic kidney disease acute May 13, 2024 3:17pm [facility] Work Phone: Evaluation note* Diagnosis Primary open angle glaucoma (POAG) of both eyes, mild stage (CMS/HCC)- Primary 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 (CMS/HCC) Corneal scar, right eye Unspecified corneal opacity Dry eyes Unspecified tear film insufficiency documented in this encounter [facility] HealthcareEvaluation noteNo assessment information availableUniversity [facility] Work Phone: Evaluation note* Diagnosis Corneal scar, right eye- Primary Unspecified corneal opacity Dry eyes Unspecified tear film insufficiency 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 (CMS/HCC) Primary open angle glaucoma (POAG) of both eyes, mild stage documented in this encounter [facility] HealthcareEvaluation note* Diagnosis Onset Date Resolution Status Admit Date Anemia of renal disease acute J 2024 11:35am CKD (chronic kidney disease) stage 4, GFR 15-29 ml/min acute January 29 11:35am Hyperlipidemia acute January 29, 2025 11:35am Hypertensive chronic kidney disease with stage 1 through stage 4 chronic ki acute January 29, 2025 11:35am Hyperuricemia acute January 29, 2025 11:35am Hypokalemia acute January 29 11:35am Microscopic hematuria acute Dec 11:35am Secondary hyperparathyroidism acute January 29, 2025 11:35am Type 2 diabetes mellitus wit h diabetic chronic kidney disease acute January 29, 2025 11:35am [facility] Work Phone: Evaluation note* Diagnosis Primary open angle glaucoma (POAG) of both eyes, mild stage documented in this encounter [facility] HealthcareHistory general Narrative - Reported* Type Description Date [...] eye surgery 04/2021 Hospitalization History see above [facility] Other History general Narrative - Reported* Type [...] RIGHT EYE 2021 Hospitalization History see above [facility] Other History general Narrative - Reported* Type [...] HEART CATH 12/2021 Hospitalization History see above [facility] Other Reason for referral (narrative)No reason for referral information availableUniversity [facility]als [facility] Work Phone: Summary Purpose Family History No Family History [...] disease) stage 4, GFR 15-29 ml/min Hyperlipidemia [id number] Hyperuricemia Hypokalemia Microscopic hematuria Secondary hyperparathyroidism Type 2 diabetes mellitus with diabetic chronic kidney disease Chief Complaint RENAL 4 MONTH F/U Reason for Visit Anemia of renal dise ase CKD (chronic kidney disease) stage 4, GFR 15-29 ml/min Hyperlipidemia [id number] Hyperuricemia Hypokalemia Microscopic hematuria Secondary hyperparathyroidism Type 2 diabetes mellitus with diabetic chronic kidney disease Chief Complaint Admit Date RENAL 4 MONTH F/U May 13, 2024 3:17pm Reason for Visit Admit Date Anemia of renal disease May 13, 2 024 3:17pm CKD (chronic kidney disease) stage [...] 4month f/u September 03, 2024 3:15 pm Chief Complaint Admit Date Renal F/U January 29, 2025 11:3 5am Reason for Visit Admit Date Anemia of renal disease January 29, 2025 11:35am CKD (chronic kidney disease) stage 4, GF R 15-29 ml/min January 29, 2025 11:35am Hyperlipidemia January 29, 2025 11:3 5am Hypertensive chronic kidney disease with stage 1 through stage 4 chronic ki January 29, 2025 11:35am Hyperuricemia January 29, 2025 11:3 5am Hypokalemia January 29, 2025 11:3 5am Microscopic hematuria January 29, 2025 11 :35am Secondary hyperparathyroidism January 29, 2025 11:35am Type 2 diabetes mellitus with diabetic c hronic kidney disease January 29, 2025 11:35am Additional Source Comments INFORMATION SOURCE (unrecogn ized section and content) DATE CREATED AUTHOR 03/07/2021 [facility] DATE CREATED AUTHOR AUTHOR'S ORGANIZ ATION 08/05/2021 [facility] DATE CREATED AUTHOR AUTHOR'S ORGANIZ ATION 12/16/2021 [facility] DATE CREATED AUTHOR AUTHOR'S ORGANIZ ATION 10/29/2022 [facility] pital DATE CREATED AUTHOR AUTHOR'S ORGANIZ ATION 11/29/2024 [facility] EPIC DATE CREATED AUTHOR AUTHOR'S ORGANIZ ATION 04/10/2025 [facility] REASON FOR VISIT (unrecogniz ed section and content) Reason Comments Follow-up Reason Comments Glaucoma Retinopathy Reason Comments Med Refill Care Teams (unrecognized sec tion and content) [...] May 13, 2024 End: May 13, 2024 Java Manager Relationship Specialty Start Date End Date Unallocated, Ara Robertson MD [address] [place] [address] PCP - General Family Medicine 08/18/23 John Perdomo MD [address] [place] [address] Referring Physician Orthopaedic Surgery 05/08/23 Java Manager Relationship Specialty Start Date End Date Unallocated, Ara Robertson MD [facility] [place] [address] PCP - General Family Medicine 08/18/23 John Perdomo MD [address] [place] [id number] Referring Physician Orthopaedic Surgery 05/08/23 Team Status: Active Member Role Status Dates John Perdomo DO Primary Care Provider Active Start: August 26, 2024 Geneva Jenkins MD Attending Provider Active Start : August 26, 2024 Team Status: Inactive Member Role Status Dates John Perdomo DO Primary Care Provider Active Start: September 03, 2024 End: September 03, 2024 Geneva Jenkins MD Attending Provider Active Start : September 03, 2024 End: September 03, 2024 Java Manager Relationship Specialty Start Date End Date Unallocated, Ara Robertson MD [address] [place] [id number] PCP - General Family Medicine 08/18/23 John Perdomo MD [address] [place] [id number] Referring Physician Orthopaedic Surgery 05/08/23 Java Manager Relationship Specialty Start Date End Date Unallocated, Ara Robertson MD [address] [place] [id number] PCP - General Family Medicine 08/18/23 John Perdomo MD [address] [place] [id number] Referring Physician Orthopaedic Surgery 05/08/23 Team Status: Active Member Role Status Dates John Perdomo DO Primary Care Provider Active Start: January 20, 2025 Geneva Jenkins MD Attending Provider Active Start : January 20, 2025 Team Status: Inactive Member Role Status Dates John Perdomo DO Primary Care Provider Active Start: January 29, 2025 End: January 29, 2025 Geneva Jenkins MD Attending Provider Active Start : January 29, 2025 End: January 29, 2025 Java Manager Relationship Specialty Start Date End Date Unallocated, Ara Robertson MD [address] [place] [id number] PCP - General Family Medicine 08/18/23 John Perdomo MD [address] [place] [phone] Referring Physician Orthopaedic Surgery 05/08/23 Goals (unrecognized section and content) Goals may [...] BE BASED ON THE PRIMARY CLINICAL RECORDS. [facility] [employer] [facility]. provides no warranty or guarantee of the accuracy or completeness of information in this document.
[2025-04-10 13:01] LABS: Anion Gap 15.5; Calcium 9.3 mg/dL (8.5-10.1); Carbon Dioxide 27.3 mmol/L (21.0-32.0); Chloride 101 mmol/L (98-107); Estimated GFR (African America 16 (>=60 mL/min/1.73m^2); Estimated GFR (Non-African Ame 13 (>=60 mL/min/1.73m^2); Glucose 223 mg/dL (74-106); Potassium 3.8 mmol/L (3.5-5.1); Sodium 140 mmol/L (136-145)
[2025-04-10 13:05] LABS: Blood Urea Nitrogen 79.0 mg/dL (7.0-18.0)
== END 2025-04-10 11:41 | disposition home or self-care (01) ==
LOC: LAB 11:44
PROVIDERS: PCP Family Medicine; Visit Provider Internal Medicine Interventional Cardiology
DX: I50.33 Acute on chronic diastolic (congestive) heart failure (principal)
CPT/HCPCS: 36415; 80048

== ENCOUNTER 2025-04-10 15:21 | Inpatient (IN) | payer MEDICARE, OTHER, SELFPAY ==
[2025-04-10] VITALS (7 sets, daily range): BP systolic 99–160; BP diastolic 52–78; PULSE 68–76; TEMP 36.7–37.4; O2SAT 92–95; BMI 26.9; BMI 28.1
--- NOTE | 2025-04-10 15:53 | ED.GENADUL1 ---
HPI HPI - General Adult General Chief complaint: Recheck/Abnormal Lab/Rx Stated complaint: Abnornal Labs Time Seen by Provider: 04/10/25 15:33 Source: patient Mode of arrival: walk-in History of Present Illness HPI narrative: Patient is a 74-year-old female presenting to the emergency department the quest of her duty officer for concerns of an acute kidney injury. Patient states she has a history of chronic kidney disease, heart failure, prior bypass surgery. She states that over the last week her duty officer increased her dose of Bumex from 2 mg twice daily to 4 mg twice daily. Her duty officer increased dose because she had gained approximately 8 pounds and was feeling short of breath/fluid overload with increased swelling in her abdomen. Since the increase of her Bumex dose, she actually feels improved. She states that her breathing is improved, her abdominal swelling is decreasing, and overall feels well. She has no acute complaints at this time. She states she is still making an appropriate amount of urine. Related Data Home Medications ?Medication ?Instructions ?Recorded ?Confirmed allopurinol 100 mg tablet 100 mg PO DAILY 08/10/23 04/10/25 amlodipine 10 mg tablet 10 mg PO DAILY 08/10/23 04/10/25 atorvastatin 40 mg tablet 40 mg PO .qhs 08/10/23 04/10/25 bumetanide 2 mg tablet 4 mg PO BID 08/10/23 04/10/25 dorzolamide 22.3 mg-timolol 6.8 1 drp ophthalmic (eye) BID 08/10/23 04/10/25 mg/mL eye drops doxazosin 4 mg tablet 6 mg PO BID 08/10/23 04/10/25 ferrous sulfate 325 mg (65 mg 325 mg PO .EVERY OTHER DAY 08/10/23 04/10/25 iron) tablet hydralazine 50 mg tablet 50 mg PO BID 08/10/23 04/10/25 insulin glargine 100 unit/mL (3 10 unit subcut DAILY PRN 08/10/23 04/10/25 mL) subcutaneous pen (Basaglar hyperglycemia KwikPen U-100 Insulin) isosorbide mononitrate 30 mg 30 mg PO DAILY 08/10/23 04/10/25 tablet,extended release 24 hr metolazone 2.5 mg tablet 2.5 mg PO .TWICE A WEEK PRN edema 08/10/23 04/10/25 metoprolol tartrate 50 mg tablet 75 mg PO Q12H 08/10/23 04/10/25 aspirin 81 mg tablet,delayed 81 mg PO DAILY 04/10/25 04/10/25 release (Adult Low Dose Aspirin) levothyroxine 75 mcg tablet 75 mcg PO .acb 04/10/25 04/10/25 potassium 20 mg chewable tablet 40 mg PO TID 04/10/25 04/10/25 Allergies Allergy/AdvReac Type Severity Reaction Status Date / Time azithromycin Allergy Severe Anaphylaxis Verified 08/10/23 22:04 hydromorphone (From Dilaudid) Allergy Intermediate Vomiting Verified 08/10/23 22:04 spironolactone Allergy Intermediate Hives Verified 08/10/23 22:04 Penicillins Allergy Unknown Hives Verified 08/10/23 22:04 Opioid HPI Opioid Management Most Recent Opioid Data: Last Pain Scale 0 08/12/23, 12:24 Review of Systems ROS Status of ROS 10 or more systems reviewed and unremarkable except as noted in history and below [facility] Medical History (Updated 04/10/25 @ 17:43 by Doni Crawford DO) Orthostatic hypotension ?I95.1 - Orthostatic hypotension (ICD-10) Diastolic congestive heart failure ?I50.30 - Unspecified diastolic (congestive) heart failure (ICD-10) CKD stage 4 due to type 2 diabetes mellitus ?E11.22 - Type 2 diabetes mellitus with diabetic chronic kidney disease (ICD-10) ?N18.4 - Chronic kidney disease, stage 4 (severe) (ICD-10) Type 2 diabetes mellitus ?E11.9 - Type 2 diabetes mellitus without complications (ICD-10) Cataract associated with type 2 diabetes mellitus ?E11.36 - Type 2 diabetes mellitus with diabetic cataract (ICD-10) 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 (ICD-10) Cataract ?H26.9 - Unspecified cataract (ICD-10) FH: cholecystectomy ?Z83.79 - Family history of other diseases of the digestive system (ICD-10) Tarsal tunnel syndrome of right side ?G57.51 - Tarsal tunnel syndrome, right lower limb (ICD-10) Ovarian cyst, left ?N83.202 - Unspecified ovarian cyst, left side (ICD-10) Diabetic acidosis, type II ?E11.10 - Type 2 diabetes mellitus with ketoacidosis without coma (ICD-10) Anemia ?D64.9 - Anemia, unspecified (ICD-10) HTN (hypertension) ?I10 - Essential (primary) hypertension (ICD-10) Hypothyroid ?E03.9 - Hypothyroidism, unspecified (ICD-10) Pulmonary hypertensive arterial disease ?I27.21 - Secondary pulmonary arterial hypertension (ICD-10) Macular edema ?H35.81 - Retinal edema (ICD-10) CAD (coronary artery disease) ?I25.10 - Atherosclerotic heart disease of [place] coronary artery without angina pectoris (ICD-10) Chronic kidney disease (CKD) stage G4/A1, severely decreased glomerular filtration rate (GFR) between 15-29 mL/min/1.73 square meter and albuminuria creatinine ratio less than 30 mg/g ?N18.4 - Chronic kidney disease, stage 4 (severe) (ICD-10) Surgical History (Updated 08/10/23 @ 22:01 by Cherri Bello) History of arthroscopic knee surgery ?Z98.890 - Other specified postprocedural states (ICD-10) S/P CABG x 2 ?Z95.1 - Presence of aortocoronary bypass graft (ICD-10) Social History (Updated 08/10/23 @ 22:04 by Cherri Bello) Within the past year, how often did you have a drink containing alcohol: never Score interpretation: A score less than 3 is consistent with normal alcohol consumption. Smoking status: Never smoker Highest level of school completed/degree received: some college, no degree Little interest or pleasure in doing things: not at all Feeling down, depressed, or hopeless: not at all Exam Narrative Exam Narrative: CONSTITUTIONAL: Well-appearing, answering questions and following commands appropriately SKIN: Was warm and dry. EYES: Sclerae white. EARS, NOSE, THROAT: Moist oral mucosa. No JVD. RESPIRATORY: Clear to auscultation bilaterally, no wheezes, crackles, or stridor, no use of accessory muscles CARDIOVASCULAR: Normal rate and regular rhythm. There is no S3, S4, murmur, rub. GASTROINTESTINAL: Abdomen is mildly distended. No fluid wave. No rebound tenderness or guarding. Abdomen soft and nontender. MUSCULOSKELETAL: Trace pitting edema in the bilateral lower extremities. NEUROLOGIC: Patient is awake and alert. Facies were symmetrical. Constitutional Vital Signs, click to edit/add: Last Vital Signs Temp 99.3 F 04/10/25 15:23 Pulse 68 04/10/25 17:03 Resp 18 04/10/25 17:03 BP 106/78 04/10/25 17:03 Pulse Ox 95 04/10/25 17:03 O2 Del Method Room Air 04/10/25 15:23 Course Vital Signs Vital signs: Vital Signs Temperature 99.3 F 04/10/25 15:23 Pulse Rate 76 04/10/25 15:23 Respiratory Rate 18 04/10/25 15:23 Blood Pressure 99/52 04/10/25 15:23 Pulse Oximetry 94 L 04/10/25 15:23 Oxygen Delivery Method Room Air 04/10/25 15:23 Temperature 99.3 F 04/10/25 15:23 Pulse Rate 68 04/10/25 17:03 Respiratory Rate 18 04/10/25 17:03 Blood Pressure 106/78 04/10/25 17:03 Pulse Oximetry 95 04/10/25 17:03 Oxygen Delivery Method Room Air 04/10/25 15:23 Medical Decision Making MDM Narrative Medical decision making narrative: Patient is a 74-year-old female presenting to the emergency department at the request of her duty officer for concerns of abnormal outpatient laboratory studies. On review of external documentation, patient outpatient laboratory studies drawn. They were significant for acute on chronic kidney injury with a BUN of 79 and a creatinine of 3.35. Vital signs on arrival are within normal limits. She is afebrile and hemodynamically stable. She overall appears well and has no acute complaints. She is breathing comfortably on room air. The patient's acute kidney injury may be secondary to overdiuresis. IV was established and cardiac workup was obtained. Laboratory studies redemonstrated her acute kidney injury on CKD with a BUN of 81 and creatinine of 3.21. Her electrolytes and bicarb are normal. Her BNP is elevated to 8500. Troponin not elevated. She is mildly anemic but near her baseline. No leukocytosis. Chest x-ray independently reviewed/interpreted by myself demonstrated no acute cardiopulmonary process. 12 Lead EKG: Normal sinus rhythm at a normal rate. Normal axis. No ST segment elevations. QRS, GA, and QTc interval within normal limits. Final impression: normal sinus rhythm without evidence of acute myocardial ischemia I did discuss the patient with her duty officer, Dr. Fish. He recommended admission to the hospital for monitoring of the patients ORI on CKD. I discussed the patient with Dr. Arshad who accepted the patient to his service. FINAL IMPRESSION: #Acute kidney injury on CKD stage IV DISPOSITION: Admitted to the hospital CONDITION: Good Medical Records Medical records reviewed: Yes I reviewed the patient's medical records Lab Data Lab results reviewed: Yes I reviewed the patient's lab results Labs: Lab Results 04/10/25 Range/Units 16:00 WBC 8.4 (4.0-11.0) 10^3/uL RBC 3.23 L (4.20-5.40) 10^6/uL Hgb 9.6 L (12.0-16.0) g/dL Hct 28.5 L (36.0-48.0) % MCV 88.2 (81.0-99.0) fL MCH 29.7 (26.7-34.0) pg MCHC 33.7 (29.9-35.2) g/dL RDW 14.4 (11.0-15.0) % Plt Count 159 (150-450) 10^3/uL MPV 11.0 (9.5-13.5) fL Neut % (Auto) 67.2 (43.0-75.0) % Lymph % (Auto) 10.4 L (20.5-60.0) % [place] % (Auto) 6.0 (1.7-12.0) % Eos % (Auto) 15.0 H (0.9-7.0) % Baso % (Auto) 1.0 (0.2-2.0) % Neut # (Auto) 5.6 (1.4-6.5) 10^3/uL Lymph # (Auto) 0.9 L (1.2-3.8) 10^3/uL [place] # (Auto) 0.5 (0.3-0.8) 10^3/uL Eos # (Auto) 1.3 H (0.0-0.7) 10^3/uL Baso # (Auto) 0.1 (0.0-0.1) 10^3/uL Abs Immat Gran (auto) 0.03 (0.00-0.03) 10^3/uL Imm/Tot Granulo (auto) 0.4 (0.0-0.5) % Sodium 139 (136-145) mmol/L Potassium 3.9 (3.5-5.1) mmol/L Chloride 101 (98-107) mmol/L Carbon Dioxide 27.1 (21.0-32.0) mmol/L Anion Gap 14.8 BUN 81.0 H* (7.0-18.0) mg/dL Creatinine 3.21 H (0.55-1.02) mg/dL Est GFR ( Amer) 17 L (>=60 mL/min/1.73m^2) Est GFR (Non-Af Amer) 14 L (>=60 mL/min/1.73m^2) BUN/Creatinine Ratio 25.2 Glucose 185 H (74-106) mg/dL Calcium 9.2 (8.5-10.1) mg/dL Magnesium 2.2 (1.8-2.4) mg/dL Troponin I High Sens 15.7 (4.0-51.3) pg/mL NT-Pro-B Natriuret Pep 8514.0 H* (<=900.0) pg/mL Imaging Data Chest x-ray: Attestation: I personally reviewed and interpreted this imaging study as follows: Radiologist's impression: ITS Impressions Chest X-Ray 04/10/25 15:54 IMPRESSION: No acute cardiopulmonary pathology. There is scarring adjacent to the left heart border. Impression dictated by: Sonny Stein M.D. 04/10/2025 4:32 PM Dictation Location: [place] [address] Electronically authenticated by: [id number] Y Date: 04/10/2025 16:32 Discharge Plan Discharge Chief Complaint: Recheck/Abnormal Lab/Rx Clinical Impression: Acute kidney injury superimposed on stage 4 chronic kidney disease Patient Disposition: Admitted As Inpatient Time of Disposition Decision: 17:43 Condition: Good
--- NOTE | 2025-04-10 15:54 | ECG_ITS ---
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 Measurements Intervals [place] Rate: 70 P: 61 LA: 186 QRS: 54 QRSD: 80 T: 118 QT: 412 QTc: 432 Interpretive Statements 1100 Sinus rhythm 4068 Nonspecific [place] abnormality 9130 borderline ECG Compared to ECG 08/10/2023 17:47:27 No significant changes Electronically Signed On 04-10-2025 16:48:21 EDT by KARTHIK MCGINNIS M.D.
--- NOTE | 2025-04-10 15:54 | XR_ITS ---
The [address] [address] Patient Name: MADY ESTRELLA MRN: [id number] date: 1950 Sex: F Assigned Patient Location: ED.MAIN Current Patient Location: ED.MAIN Accession/Order Number: [id number] Exam Date: 04/10/2025 16:22 Report Date: 04/10/2025 16:32 At the request of: NORTH FAUST DO Procedure: XR chest 2V XR chest 2V 04/10/2025 4:27 PM SIGNS AND SYMPTOMS: ^CHF PROTOCOL: Frontal radiograph of the chest COMPARISON: 08/10/2023 FINDINGS: The trachea is midline. Atherosclerotic changes are present in the thoracic aorta. Sternotomy wires overlie the mediastinum. The heart and mediastinal structures are within normal limits. Scarring adjacent to the left heart border. The bony thorax is intact. XR/XR chest 2V IMPRESSION: No acute cardiopulmonary pathology. There is scarring adjacent to the left heart border. Impression dictated by: Sonny Stein M.D. 04/10/2025 4:32 PM Dictation Location: [place] [address] Electronically authenticated by: [id number] Y Date: 04/10/2025 16:32
[2025-04-10 16:12] LABS: Hematocrit 28.5 % (36.0-48.0); Hemoglobin 9.6 g/dL (12.0-16.0); Immature Granulocytes Abs Auto 0.03 10^3/uL (0.00-0.03); Immature Granulocytes Pct Auto 0.4 % (0.0-0.5); Lymphocytes Absolute Auto 0.9 10^3/uL (1.2-3.8); Mean Corpuscular HGB Conc 33.7 g/dL (29.9-35.2); Mean Corpuscular Hemoglobin 29.7 pg (26.7-34.0); Mean Corpuscular Volume 88.2 fL (81.0-99.0); Platelet Count 159 10^3/uL (150-450); Red Blood Count 3.23 10^6/uL (4.20-5.40); White Blood Count 8.4 10^3/uL (4.0-11.0)
[2025-04-10 16:29] LABS: Magnesium 2.2 mg/dL (1.8-2.4)
[2025-04-10 16:43] LABS: Anion Gap 14.8; Calcium 9.2 mg/dL (8.5-10.1); Carbon Dioxide 27.1 mmol/L (21.0-32.0); Chloride 101 mmol/L (98-107); Estimated GFR (African America 17 (>=60 mL/min/1.73m^2); Estimated GFR (Non-African Ame 14 (>=60 mL/min/1.73m^2); Glucose 185 mg/dL (74-106); Potassium 3.9 mmol/L (3.5-5.1); Sodium 139 mmol/L (136-145)
[2025-04-10 16:46] LABS: Blood Urea Nitrogen 81.0 mg/dL (7.0-18.0)
[2025-04-10 16:47] LABS: NT Pro B Type Natriuretic Pept 8514.0 pg/mL (<=900.0)
[2025-04-10 17:52] LABS: Glucose Urine UA NEGATIVE (NEGATIVE)
[2025-04-10 18:04] LABS: Cast Seen? NONE SEEN #/LPF (NONE SEEN); Crystals Seen? None Seen #/HPF (None Seen)
--- NOTE | 2025-04-10 18:20 | US_ITS ---
The [address] [address] Patient Name: MADY ESTRELLA MRN: [id number] date: 1950 Sex: F Assigned Patient Location: ER Current Patient Location: ER Accession/Order Number: [id number] Exam Date: 04/10/2025 18:30 Report Date: 04/10/2025 19:18 At the request of: WALLACE CROWELL MD Procedure: US renal BI BILATERAL RENAL AND BLADDER ULTRASOUND CLINICAL HISTORY: AKA r/o obstructive uropathy COMPARISON: None Estimation of renal size is approximately 10.2 x 4.2 x 4.7 cm on the right and 10.0 x 4.1 x 4.3 cm on the left. 5 mm echogenic and 7 mm echogenic focus in the right. 8 mm cyst. On the left, is 1.3 cm cyst with echogenic foci. Incidental 3 mm echogenic focus and is well possible stone.. The urinary bladder is partially distended with a volume of 52 ml. No shadowing stone or focal lesion. US/US renal BI IMPRESSION: NO OBSTRUCTIVE UROPATHY. BILATERAL CALCULI SUSPICIOUS FOR NEPHROLITHIASIS. NO HYDRONEPHROSIS. Impression dictated by: Baltazar Walker M.D. 04/10/2025 7:18 PM Dictation Location: [place] [address] Electronically authenticated by: [id number] Y Date: 04/10/2025 19:18
--- OUTSIDE RECORDS SUMMARY | 2025-04-10 19:31 | XMS_ITS | CCD ---
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 Name Role Phone JOHN PERDOMO Referring Unavailable [...] Unavailable MARY GRACE, GENEVA Attending Unavailable BOBBY, KAWN Admitting Unavailable BOBBY, KWAN Attending Unavailable MARY [...] GENEVA Consulting Unavailable Perdomo John VIGIL Unavailable [phone] Unallocated , Joses Provider Primary Care Provi kortney MIRTA TERAN Attending Unavailable ZAHLMIRTA MAST Attending Unavailable Perdomo John FAIR Primary Care Provider [phone] Geneva Jenkins MD Attending Provider KARTHIK FISH Attending Unavailable KARTHIK FISH Attending Unavailable Allergies Allergy Classification Reported Allergen(s) Allergy Type Date of Onset Reaction(s) Facility Opioid Agonists (1 source) HYDROmorphone Drug Allergy 4 Unknown Reaction [facility] Penicillins (antibiotic) (1 source) Penicillin G Benzathine Drug Allergy 4 [facility] Spironolactone (1 source) Spironolactone Drug Allergy [address] [facility] (2 sources) Erythromycin; Translations: [ERYTHROMYCIN] Drug Allergy 1 [facility] (2 sources) HYDROmorphone Drug Allergy 1 [facility] (2 sources) Penicillins; Translations: [PENICILLINS] Drug allergy (disorder) 1 [facility] (20 sources) Erythromycin Drug Allergy 2 anaphylaxis, Other, Unknown [facility] (20 sources) HYDROmorphone; Translations: [HYDROMORPHONE] Drug Allergy 2 [facility] (20 sources) Penicillin Drug Allergy Unknown [facility] Other (20 sources) Penicillin G Benzathine Drug allergy 3 [facility] (12 sources) Erythromycin; Translations: [ERYTHROMYCIN BASE] Drug Allergy 0 Anaphylaxis [facility] (1 source) Penicillin Drug Allergy [facility] (8 sources) Spironolactone; Translations: [SPIRONOLACTONE] Drug Allergy [address] [facility] (5 sources) Penicillin G Drug Allergy 3 Other [facility] (4 sources) Penicillins Drug Allergy 2 [facility] (4 sources) Spironolactone Drug Allergy 4 [facility] Medications Current Medications Medication Drug Class(es) [...] D2) 1,250 mcg (50,000 unit) capsule Active 19135 UNIT PO .COMPLEX July 29, 2024 7:32pm 50,000 units orally every other week; Complies with drug therapy Start: 09-25-2023 End: 07-29-2024 take 1 capsule by mouth every week Ergocalciferol (Vitamin D2) 1,250 mcg (50,000 unit) capsule Discontinued 60209 UNIT PO EVERY 2 WEEKS September 25, 2023 12:00am July 29, 2024 7:33pm FreeText[employer]: TAKE 1 CAPSULE BY MOUTH ONE TIME PER WEEK; Note: Source Status: Start; Refills: 2; Qty: 12 Capsule; Provider: Mary Grace Bean ( ) take 1 capsule by [facility] every week Vitamin D (Ergocalciferol) 1.25 MG (70937 UT) TAKE 1 CAPSULE BY MOUTH ONE TIME PER WEEK for 84 Active take 1 capsule by [facility] every other week Ergocalciferol 1.25 MG (34027 UT) 1 capsule Orally Q2 week for [...] DAYS Start: 09-06-2023 [facility] Ferrous Sulfate Active 0 [...] coronary artery without angina pectoris; 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] Onset: 2 Chronic [...] Range Facility Office Visiton 04-07-2025 Follow-up visit [id number] Claudia Estrella 1950 F Date Provider Department Center 04/07/2025 KARTHIK MACKAY [facility] Family History Problem Relation Age of Onset Heart attack Mother Heart failure Mother Heart attack Father Family Status - Relation Status Age at Mother Father Level of Service:94440 [place] OFFICE/OUTPATIENT ESTABLISHED MOD MDM 30 MIN Normal [facility] Erythrocyte distribution wid th Auto (RBC) [Ratio]Ordered By: Geneva Jenkins on 01-20-2025 Erythrocyte distribution width (RBC) [Ratio] 13.7 % 11.0-15.0 [facility] Estimated glomerular filtrat ion rate (GFR) non- AmericanOrdered By: Geneva Jenkins on 01-20-2025 GFR/1.73 sq M.predicted among non-blacks MDRD (S/P/Bld) [Vol rate/Area] 20 mL/min/{1.73_m2} Low >=60 mL/min/1.73m 2 [facility] Hematocrit Auto (Bld) [Volum e fraction]Ordered By: Geneva Jenkins on 01-20-2025 Hematocrit (Bld) [Volume fraction] 32.6 % Low 36.0-48.0 [facility] Hemoglobin [Mass/volume] in BloodOrdered By: Geneva Jenkins on 01-20-2025 Hemoglobin (Bld) [Mass/Vol] 11.1 g/dL Low 12.0-16.0 [facility] Iron binding capacity [Mass/ volume] in Serum or PlasmaOrdered By: Geneva Jenkins on 01-20-2025 Iron binding capacity [Mass/Vol] 279.0 ug/dL 250.0-450.0 [facility] Iron saturation [Mass Fracti on] in Serum or PlasmaOrdered By: Geneva Jenkins on 01-20-2025 Iron saturation [Mass fraction] 17.9 % [facility] Laboratory - Chemistry and C hemistry - challengeOrdered By: Geneva Jenkins on 01-20-2025 Albumin [Mass/Vol] 3.2 g/dL Low 3.4-5.0 [facility] Calcium [Mass/Vol] 9.2 mg/dL 8.5-10.1 [facility] Chloride [Moles/Vol] 105 mmol/L 98-107 [facility] CO2 [Moles/Vol] 25.4 mmol/L 21.0-32.0 [facility] Creatinine [Mass/Vol] 2.33 mg/dL High 0.55-1.02 [facility] GFR/1.73 sq M.predicted MDRD (S/P/Bld) [Vol rate/Area] 25 mL/min/{1.73_m2} Low >=60 mL/min/1.73m 2 [facility] Glucose [Mass/Vol] 158 mg/dL High 74-106 [facility] Iron [Mass/Vol] 50.0 ug/dL 50.0-170.0 [facility] Magnesium [Mass/Vol] 2.1 mg/dL 1.8-2.4 [facility] Potassium [Moles/Vol] 4.2 mmol/L 3.5-5.1 [facility] Sodium [Moles/Vol] 142 mmol/L 136-145 [facility] Urate [Mass/Vol] 5.4 mg/dL 2.6-6.0 [facility] Urea nitrogen [Mass/Vol] 50.0 mg/dL High 7.0-18.0 [facility] Urea nitrogen/Creatinine [Mass ratio] 21.5 mg/mg [facility] Bilirubin Ql (U) Negative NEGATIVE [facility] Glucose (U) [Mass/Vol] Negative NE[facility] Ketones Ql (U) Negative NEGATIVE [facility] pH (U) 6.0 [pH] 5.0-9.0 [facility] Specific gravity (U) [Rel density] 1.020 1.005-1.025 [facility] Urobilinogen Qn (U) 0.2 {Kelly'U}/dL 0.2-1.0 [facility] Laboratory - Specimen inform ationOrdered By: Geneva Jenkins on 01-20-2025 Appearance (U) CLEAR CLEAR [facility] Color (U) LT. YELLOW YELLOW [facility] Laboratory - UrinalysisOrder ed By: Geneva Jenkins on 01-20-2025 Leukocyte esterase Test strip Ql (U) TRACE Abnormal NEGATIVE [facility] Mucus Ql (Urine sed) TRACE Abnormal NONE SEEN [facility] Nitrite Ql (U) Negative NEGATIVE [facility] Protein (U) [Mass/Vol] 167.6 mg/dL High <=11.9 [facility] Protein Ql (U) >=300 mg/dL Abnormal NEG/TRACE [facility] Leukocytes [#/volume] correc stacy for nucleated erythrocytes in Blood by Automated counOrdered By: Geneva Jenkins on 01-20-2025 WBC corrected for nucl RBC Auto (Bld) [#/Vol] 9.0 10 3/uL 4.0-11.0 [facility] MCH Auto (RBC) [Entitic mass ]Ordered By: Geneva Jenkins on 01-20-2025 MCH (RBC) [Entitic mass] 29.8 pg 26.7-34.0 [facility] MCHC Auto (RBC) [Mass/Vol]Or dered By: Geneva Jenkins on 01-20-2025 MCHC (RBC) [Mass/Vol] 34.0 g/dL 29.9-35.2 [facility] MCV Auto (RBC) [Entitic vol] Ordered By: Geneva Jenkins on 01-20-2025 MCV (RBC) [Entitic vol] 87.4 fL 81.0-99.0 [facility] No Panel InformationOrdered By: Geneva Jenkins on 01-20-2025 25-Hydroxy Vitamin D Total 46.0 ng/mL [facility] Comment on above: <20 ng/mL Vit D defi cient20-<30 ng/mL Vit D [id number] ng/mL Vit D sufficient>100 ng/mL Potential Toxicity Miscellaneous Test COMMENT . [facility] Comment on above: Test Ordered: [id number] FerritinFerritin 153 [H ] ng/mL Reference Range: 15-150Performed at: CB - [facility] [address] [id number] Director: Curry Rizzo PhD, Phone: [phone] Parathyroid Hormone (Intact) 58 pg/mL 15-65 [facility] Comment on above: Performed at: CB - [facility] [address] [id number] Director: Curry Rizzo PhD, Phone: [phone] Phosphorus Level 4.6 mg/dL 2.6-4.7 [facility] Urine Bacteria TRACE #/HPF Abnormal NONE SEEN [facility] Urine Occult Blood TRACE-I NEGATIVE [facility] Urine Other Casts NONE SEEN #/LPF NONE SEEN [facility] Urine Other Crystals None Seen #/HPF None Seen [facility] Urine Random Creatinine 30.76 mg/dL 20.00-300.0 0 [facility] Urine RBC 2-5 #/HPF Abnormal 0-2 [facility] Urine Squamous Epithelial Cells FEW #/LPF Abnormal NONE/RARE [facility] Urine WBC 0-2 #/HPF Abnormal NONE SEEN [facility] Platelet mean volume Auto (B ld) [Entitic vol]Ordered By: Geneva Jenkins on 01-20-2025 Platelet mean volume (Bld) [Entitic vol] 10.6 fL 9.5-13.5 [facility] Platelets Auto (Bld) [#/Vol] Ordered By: Geneva Jenkins on 01-20-2025 Platelets (Bld) [#/Vol] 177 10 3/uL 150-450 [facility] RBC Auto (Bld) [#/Vol]Ordere d By: Geneva Jenkins on 01-20-2025 RBC (Bld) [#/Vol] 3.73 10 6/uL Low 4.20-5.40 [facility] Serum or plasma anion gap de terminationOrdered By: Geneva Jenkins on 01-20-2025 Anion gap [Moles/Vol] 15.8 mmol/L [facility] Urine protein/creatinine rat ioOrdered By: Geneva Jenkins on 01-20-2025 Protein/Creatinine (U) [Ratio] 5.45 [facility] Perimetry studyon 11-26-2024 [facility] Radiology Study observation (narrative) [facility] 36on 11-06-2024 36 Regarding echo result from 10/04/2024: MD Michelle Tan MA Please tell her the echo showed normal cardiac function with evidence of extra fluid in the body. Depending on symptoms of shortness of breath, she can take extra 0.5 tablet of bumex on as needed basis. Follow up as planned. Patient informed. She verbalized understanding. Normal [facility] Office Visiton 09-16-2024 Follow-up visit [id number] Claudia Estrella 1950 F Date Provider Department Center 09/16/2024 KARTHIK MACKAY ADY [facility] Family History Problem Relation Age of Onset Heart attack Mother Heart failure Mother Heart attack Father Family Status - Relation Status Age at Mother Father Level of Service:43828 [place] OFFICE/OUTPATIENT ESTABLISHED MOD MDM 30 MIN Normal [facility] Erythrocyte distribution wid th Auto (RBC) [Ratio]on 08-26-2024 Erythrocyte distribution width (RBC) [Ratio] Erythrocyte distribution width [Ratio] by Automated count 11.0-15.0 [facility] Estimated glomerular filtrat ion rate (GFR) non- Americanon 08-26-2024 GFR/1.73 sq M.predicted among non-blacks MDRD (S/P/Bld) [Vol rate/Area] Estimated glomerular filtration rate (GFR) non- Low >=60 mL/min/1.73m 2 [facility] Hematocrit Auto (Bld) [Volum e fraction]on 08-26-2024 Hematocrit (Bld) [Volume fraction] Hematocrit [Volume Fraction] of Blood by Automated count Low 36.0-48.0 [facility] Hemoglobin [Mass/volume] in Bloodon 08-26-2024 Hemoglobin (Bld) [Mass/Vol] Hemoglobin [Mass/volume] in Blood Low 12.0-16.0 [facility] Iron binding capacity [Mass/ volume] in Serum or Plasmaon 08-26-2024 Iron binding capacity [Mass/Vol] Iron binding capacity [Mass/volume] in Serum or Plasma Low 250.0-450.0 [facility] Iron saturation [Mass Fracti on] in Serum or Plasmaon 08-26-2024 Iron saturation [Mass fraction] Iron saturation [Mass Fraction] in Serum or Plasma [facility] Laboratory - Chemistry and C hemistry - challengeon 08-26-2024 Albumin [Mass/Vol] 3.4 g/dL 3.4-5.0 [facility] Calcium [Mass/Vol] 9.3 mg/dL 8.5-10.1 [facility] Chloride [Moles/Vol] 100 mmol/L 98-107 [facility] CO2 [Moles/Vol] 28.1 mmol/L 21.0-32.0 [facility] Creatinine [Mass/Vol] 2.44 mg/dL High 0.55-1.02 [facility] Ferritin [Mass/Vol] 145.0 ng/mL 8.0-252.0 [facility] GFR/1.73 sq M.predicted MDRD (S/P/Bld) [Vol rate/Area] 24 mL/min/{1.73_m2} Low >=60 mL/min/1.73m 2 [facility] Glucose [Mass/Vol] 162 mg/dL High 74-106 [facility] Iron [Mass/Vol] 53.0 ug/dL 50.0-170.0 [facility] Magnesium [Mass/Vol] 2.0 mg/dL 1.8-2.4 [facility] Potassium [Moles/Vol] 3.2 mmol/L Low 3.5-5.1 [facility] Sodium [Moles/Vol] 140 mmol/L 136-145 [facility] Urate [Mass/Vol] 6.3 mg/dL High 2.6-6.0 [facility] Urea nitrogen [Mass/Vol] 46.0 mg/dL High 7.0-18.0 [facility] Urea nitrogen/Creatinine [Mass ratio] 18.9 mg/mg [facility] Laboratory - Urinalysison Protein (U) [Mass/Vol] 197.4 mg/dL High <=11.9 F [facility] Leukocytes [#/volume] correc stacy for nucleated erythrocytes in Blood by Automated counon 08-26-2024 WBC corrected for nucl RBC Auto (Bld) [#/Vol] Leukocytes [#/volume] corrected for nucleated erythrocytes in Blood by Automated coun 4.0-11.0 [facility] MCH Auto (RBC) [Entitic mass ]on 08-26-2024 MCH (RBC) [Entitic mass] MCH [Entitic ma ss] by Automated count 26.7-34.0 [facility] MCHC Auto (RBC) [Mass/Vol]on 08-26-2024 MCHC (RBC) [Mass/Vol] MCHC [Mass/volume] by Automated count 29.9-35.2 [facility] MCV Auto (RBC) [Entitic vol] on 08-26-2024 MCV (RBC) [Entitic vol] MCV [Entitic vol ume] by Automated count 81.0-99.0 [facility] No Panel Informationon 08-26 25-Hydroxy Vitamin D Total 51.6 ng/mL [facility] Comment on above: <20 ng/mL Vit D defi cient20-<30 ng/mL Vit D dkvselyjipmv90-251 ng/mL Vit D sufficient>100 ng/mL Potential Toxicity Parathyroid Hormone (Intact) 78 pg/mL Abnormal 15-65 [facility] Comment on above: Performed at: - [email or web address] [id number] Director: Curry Rizzo PhD, Phone: [phone] Phosphorus Level 5.4 mg/dL High 2.6-4.7 [facility] Urine Random Creatinine 39.10 mg/dL 20.00-300.0 0 [facility] Platelet mean volume Auto (B ld) [Entitic vol]on 08-26-2024 Platelet mean volume (Bld) [Entitic vol] Platelet mean volume [Entitic volume] in Blood by Automated count 9.5-13.5 [facility] Platelets Auto (Bld) [#/Vol] on 08-26-2024 Platelets (Bld) [#/Vol] Platelets [#/vol ume] in Blood by Automated count 150-450 [facility] RBC Auto (Bld) [#/Vol]on RBC (Bld) [#/Vol] Erythrocytes [#/volume] in Blood by Automated count Low 4.20-5.40 [facility] Serum or plasma anion gap de terminationon 08-26-2024 Anion gap [Moles/Vol] Serum or plasma anion gap determination [facility] Urine protein/creatinine rat ioon 08-26-2024 Protein/Creatinine (U) [Ratio] Urine protein/creatinine ratio [facility] Ophthalmic OCT panelon 05-15 [facility] Right Eye Images reviewed and comparison made to baseline, Images reviewed. To assess optic nerve function and for use in future follow-up. Reliability: good and adequate. Left Eye Images reviewed and comparison made to baseline, Images reviewed. To assess optic nerve function and for use in future follow-up. Reliability: good and adequate. Notes Superior nerve fiber layer (NFL) thinning both eyes (OU). Stable. [facility] Radiology Study observation (narrative) [facility] Optical coherence tomography study reporton 05-15-2024 [facility] Radiology Study observation (narrative) [facility] Erythrocyte distribution wid th Auto (RBC) [Ratio]on 05-09-2024 Erythrocyte distribution width (RBC) [Ratio] Erythrocyte distribution width [Ratio] by Automated count High 11.0-15.0 [facility] Estimated glomerular filtrat ion rate (GFR) non- Americanon 05-09-2024 GFR/1.73 sq M.predicted among non-blacks MDRD (S/P/Bld) [Vol rate/Area] Estimated glomerular filtration rate (GFR) non- Low >=60 mL/min/1.73m 2 [facility] Hematocrit Auto (Bld) [Volum e fraction]on 05-09-2024 Hematocrit (Bld) [Volume fraction] Hematocrit [Volume Fraction] of Blood by Automated count Low 36.0-48.0 [facility] Hemoglobin [Mass/volume] in Bloodon 05-09-2024 Hemoglobin (Bld) [Mass/Vol] Hemoglobin [Mass/volume] in Blood Low 12.0-16.0 [facility] Iron binding capacity [Mass/ volume] in Serum or Plasmaon 05-09-2024 Iron binding capacity [Mass/Vol] Iron binding capacity [Mass/volume] in Serum or Plasma 250.0-450.0 [facility] Iron saturation [Mass Fracti on] in Serum or Plasmaon 05-09-2024 Iron saturation [Mass fraction] Iron saturation [Mass Fraction] in Serum or Plasma [facility] Laboratory - Chemistry and C hemistry - challengeon 05-09-2024 Albumin [Mass/Vol] 3.3 g/dL Low 3.4-5.0 [facility] Calcium [Mass/Vol] 9.2 mg/dL 8.5-10.1 [facility] Chloride [Moles/Vol] 103 mmol/L 98-107 [facility] CO2 [Moles/Vol] 25.9 mmol/L 21.0-32.0 [facility] Creatinine [Mass/Vol] 2.24 mg/dL High 0.55-1.02 [facility] Ferritin [Mass/Vol] 151.0 ng/mL 8.0-252.0 [facility] GFR/1.73 sq M.predicted MDRD (S/P/Bld) [Vol rate/Area] 26 mL/min/{1.73_m2} Low >=60 mL/min/1.73m 2 [facility] Glucose [Mass/Vol] 169 mg/dL High 74-106 [facility] Iron [Mass/Vol] 41.0 ug/dL Low 50.0-170.0 [facility] Magnesium [Mass/Vol] 2.0 mg/dL 1.8-2.4 [facility] Potassium [Moles/Vol] 3.6 mmol/L 3.5-5.1 [facility] Sodium [Moles/Vol] 141 mmol/L 136-145 [facility] Urate [Mass/Vol] 5.1 mg/dL 2.6-6.0 [facility] Urea nitrogen [Mass/Vol] 44.0 mg/dL High 7.0-18.0 [facility] Urea nitrogen/Creatinine [Mass ratio] 19.6 mg/mg [facility] Bilirubin Ql (U) Negative NEGATIVE [facility] Glucose (U) [Mass/Vol] Negative NE[facility]IVE [facility] Ketones Ql (U) Negative NEGATIVE [facility] pH (U) 5.5 [pH] 5.0-9.0 [facility] Specific gravity (U) [Rel density] 1.020 1.005-1.025 [facility] Urobilinogen Qn (U) 0.2 {Kelly'U}/dL 0.2-1.0 [facility] Laboratory - Specimen inform ationon 05-09-2024 Appearance (U) CLEAR CLEAR [facility] Color (U) LT. YELLOW YELLOW [facility] Laboratory - Urinalysison Hyaline casts LM Ql (Urine sed) RARE [facility] Leukocyte esterase Test strip Ql (U) MODERATE Abnormal NEGATIVE [facility] Mucus Ql (Urine sed) TRACE Abnormal NONE SEEN [facility] Nitrite Ql (U) Negative NEGATIVE [facility] Protein (U) [Mass/Vol] 122.0 mg/dL High <=11.9 F [facility] Protein Ql (U) 100 mg/dL Abnormal NEG/TRACE [facility] Leukocytes [#/volume] correc stacy for nucleated erythrocytes in Blood by Automated counon 05-09-2024 WBC corrected for nucl RBC Auto (Bld) [#/Vol] Leukocytes [#/volume] corrected for nucleated erythrocytes in Blood by Automated coun 4.0-11.0 [facility] MCH Auto (RBC) [Entitic mass ]on 05-09-2024 MCH (RBC) [Entitic mass] MCH [Entitic ma ss] by Automated count 26.7-34.0 [facility] MCHC Auto (RBC) [Mass/Vol]on 05-09-2024 MCHC (RBC) [Mass/Vol] MCHC [Mass/volume] by Automated count 29.9-35.2 [facility] MCV Auto (RBC) [Entitic vol] on 05-09-2024 MCV (RBC) [Entitic vol] MCV [Entitic vol ume] by Automated count 81.0-99.0 [facility] No Panel Informationon 05-09 25-Hydroxy Vitamin D Total 56.3 ng/mL [facility] Comment on above: <20 ng/mL Vit D defi cient20-<30 ng/mL Vit D kgwopdfhyryo33-190 ng/mL Vit D sufficient>100 ng/mL Potential Toxicity Parathyroid Hormone (Intact) 9 pg/mL Abnormal 15-65 [facility] Comment on above: Performed at: - [address] [id number] Director: Curry Rizzo PhD, Phone: [phone] Phosphorus Level 4.8 mg/dL High 2.6-4.7 [facility] Urine Bacteria SMALL #/HPF Abnormal NONE SEEN [facility] Urine Occult Blood Negative NEGATIVE [facility] Urine Other Casts SEEN #/LPF Abnormal NONE SEEN [facility] Urine Other Crystals None Seen #/HPF None Seen [facility] Urine Random Creatinine 62.86 mg/dL 20.00-300.0 0 [facility] Urine RBC 0-2 #/HPF 0-2 [facility] Urine Squamous Epithelial Cells MODERATE #/LPF Abnormal NONE/RARE [facility] Urine WBC 2-5 #/HPF Abnormal NONE SEEN [facility] Platelet mean volume Auto (B ld) [Entitic vol]on 05-09-2024 Platelet mean volume (Bld) [Entitic vol] Platelet mean volume [Entitic volume] in Blood by Automated count 9.5-13.5 [facility] Platelets Auto (Bld) [#/Vol] on 05-09-2024 Platelets (Bld) [#/Vol] Platelets [#/vol ume] in Blood by Automated count 150-450 [facility] RBC Auto (Bld) [#/Vol]on RBC (Bld) [#/Vol] Erythrocytes [#/volume] in Blood by Automated count Low 4.20-5.40 [facility] Serum or plasma anion gap de terminationon 05-09-2024 Anion gap [Moles/Vol] Serum or plasma anion gap determination [facility] Urine protein/creatinine rat ioon 05-09-2024 Protein/Creatinine (U) [Ratio] Urine protein/creatinine ratio [facility] Albumin [Mass/volume] in Ser um or Plasmaon 01-01-2024 Albumin [Mass/Vol] 3.5 g/dL 2.9-4.4 [facility] Erythrocyte distribution wid th Auto (RBC) [Ratio]on 01-01-2024 Erythrocyte distribution width (RBC) [Ratio] 15.2 % High 11.0-15.0 [facility] Estimated glomerular filtrat ion rate (GFR) non- Americanon 01-01-2024 GFR/1.73 sq M.predicted among non-blacks MDRD (S/P/Bld) [Vol rate/Area] 21 mL/min/{1.73_m2} Low >=60 [facility] Hematocrit Auto (Bld) [Volum e fraction]on 01-01-2024 Hematocrit (Bld) [Volume fraction] 32.4 % Low 36.0-48.0 [facility] Hemoglobin [Mass/volume] in Bloodon 01-01-2024 Hemoglobin (Bld) [Mass/Vol] 10.4 g/dL Low 12.0-16.0 [facility] IgA [Mass/volume] in Serum o r Plasmaon 01-01-2024 IgA [Mass/Vol] 580 mg/dL Abnormal 64-422 [facility] IgG [Mass/volume] in Serum o r Plasmaon 01-01-2024 IgG [Mass/Vol] 1132 mg/dL [id number] [facility] IgM [Mass/volume] in Serum o r Plasmaon 01-01-2024 IgM [Mass/Vol] 155 mg/dL 26-217 [facility] Immunofixation for Urineon 0 01-01-2024 Interpretation Immunofixation (U) [Interp] Comment . [facility] Comment on above: No monoclonality det ected.Performed at: - [facility] [address] [id number] Director: Curry Rizzo PhD, Phone: [phone] Immunoglobulin light chains. kappa.free [Mass/volume] in Serumon 01-01-2024 Immunoglobulin light chains.kappa.free (S) [Mass/Vol] 75.5 mg/L Abnormal 3.3-19.4 [facility] Immunoglobulin light chains. kappa.free/Immunoglobulin light chains.lambda.free [Priscilla 01-01-2024 Immunoglobulin light chains.kappa.free/Immuno globulin light chains.lambda.free (S) [Mass ratio] 1.25 0.26-1.65 [facility] Comment on above: Performed at: [facility] [place] [email or web address] [id number] Director: Curry Rizzo PhD, Phone: [phone] Immunoglobulin light chains. lambda.free [Mass/volume] in Serum or Plasmaon 01-01-2024 Immunoglobulin light chains.lambda.free [Mass/Vol] 60.4 mg/L Abnormal 5.7-26.3 [facility] Iron binding capacity [Mass/ volume] in Serum or Plasmaon 01-01-2024 Iron binding capacity [Mass/Vol] 266.0 ug/dL 250.0-450.0 [facility] Iron saturation [Mass Fracti on] in Serum or Plasmaon 01-01-2024 Iron saturation [Mass fraction] 16.2 % [facility] Laboratory - Chemistry and C hemistry - challengeon 01-01-2024 Albumin [Mass/Vol] 3.3 g/dL Low 3.4-5.0 [facility] Calcium [Mass/Vol] 9.2 mg/dL 8.5-10.1 [facility] Chloride [Moles/Vol] 103 mmol/L 98-107 [facility] CO2 [Moles/Vol] 27.3 mmol/L 21.0-32.0 [facility] Creatinine [Mass/Vol] 2.28 mg/dL High 0.55-1.02 [facility] Ferritin [Mass/Vol] 123.0 ng/mL 8.0-252.0 [facility] GFR/1.73 sq M.predicted MDRD (S/P/Bld) [Vol rate/Area] 26 mL/min/{1.73_m2} Low >=60 [facility] Glucose [Mass/Vol] 139 mg/dL High 74-106 [facility] Iron [Mass/Vol] 43.0 ug/dL Low 50.0-170.0 [facility] Magnesium [Mass/Vol] 2.3 mg/dL 1.8-2.4 [facility] Potassium [Moles/Vol] 4.4 mmol/L 3.5-5.1 [facility] Sodium [Moles/Vol] 138 mmol/L 136-145 [facility] Urate [Mass/Vol] 5.9 mg/dL 2.6-6.0 [facility] Urea nitrogen [Mass/Vol] 50.0 mg/dL High 7.0-18.0 [facility] Urea nitrogen/Creatinine [Mass ratio] 21.9 mg/mg [facility] Laboratory - Urinalysison Protein (U) [Mass/Vol] 93.2 mg/dL High <=11.9 [facility] Leukocytes [#/volume] correc stacy for nucleated erythrocytes in Blood by Automated counon 01-01-2024 WBC corrected for nucl RBC Auto (Bld) [#/Vol] 8.9 10 3/uL 4.0-11.0 [facility] MCH Auto (RBC) [Entitic mass ]on 01-01-2024 MCH (RBC) [Entitic mass] 27.4 pg 26.7-34.0 [facility] MCHC Auto (RBC) [Mass/Vol]on 01-01-2024 MCHC (RBC) [Mass/Vol] 32.1 g/dL 29.9-35.2 [facility] MCV Auto (RBC) [Entitic vol] on 01-01-2024 MCV (RBC) [Entitic vol] 85.3 fL 81.0-99.0 [facility] [place] No Panel Informationon 12-31 25-Hydroxy Vitamin D Total 53.8 ng/mL [facility] Comment on above: <20 ng/mL Vit D defi cient20-<30 ng/mL Vit D ahnclmeyudwn70-671 ng/mL Vit D sufficient>100 ng/mL Potential Toxicity Parathyroid Hormone (Intact) 95 pg/mL Abnormal 15-65 [facility] Comment on above: Performed at: [facility] [address] [id number] Director: Curry Rizzo PhD, Phone: [phone] Phosphorus Level 4.0 mg/dL 2.6-4.7 [facility] Protein Electrophoresis M-Edward Not Observed g/dL Not Observed [facility] Protein Electrophoresis Note Comment . [facility] Comment on above: Protein electrophore sis scan will follow via computer,mail, or pit and auxiliaries supervisor delivery. Urine Random Creatinine 88.24 mg/dL 20.00-300.0 0 [facility] Platelet mean volume Auto (B ld) [Entitic vol]on 01-01-2024 Platelet mean volume (Bld) [Entitic vol] 10.9 fL 9.5-13.5 [facility] Platelets Auto (Bld) [#/Vol] on 01-01-2024 Platelets (Bld) [#/Vol] 184 10 3/uL 150-450 [facility] Protein [Mass/volume] in Ser um or Plasmaon 01-01-2024 Protein [Mass/Vol] 7.0 g/dL 6.0-8.5 [facility] RBC Auto (Bld) [#/Vol]on RBC (Bld) [#/Vol] 3.80 10 6/uL Low 4.20-5.40 [facility] Serum globulin measurement ( mass/volume)on 01-01-2024 Globulin (S) [Mass/Vol] 3.5 g/dL 2.2-3.9 [facility] Serum or plasma albumin/glob ulin mass ratioon 01-01-2024 Albumin/Globulin [Mass ratio] 1.1 {ratio} 0.7-1.7 [facility] Serum or plasma alpha 1 glob ulin measurement by electrophoresis (mass/volume)on 01-01-2024 Alpha 1 globulin Elph [Mass/Vol] 0.3 g/dL 0.0-0.4 [facility] Serum or plasma alpha 2 glob ulin measurement by electrophoresis (mass/volume)on 01-01-2024 Alpha 2 globulin Elph [Mass/Vol] 0.9 g/dL 0.4-1.0 [facility] Serum or plasma anion gap de terminationon 01-01-2024 Anion gap [Moles/Vol] 12.1 mmol/L Fi [facility] Serum or plasma beta globuli n measurement by electrophoresis (mass/volume)on 01-01-2024 Beta globulin Elph [Mass/Vol] 1.1 g/dL 0.7-1.3 [facility] Serum or plasma gamma globul in measurement by electrophoresis (mass/volume)on 01-01-2024 Gamma globulin Elph [Mass/Vol] 1.3 g/dL 0.4-1.8 [facility] Serum or plasma immunoelectr ophoresis interpretationon 01-01-2024 Interpretation IEP [Interp] Comment . [facility] Comment on above: No monoclonality det ected. Urine protein/creatinine rat ioon 01-01-2024 Protein/Creatinine (U) [Ratio] 1.06 [facility] BNPon 10-26-2022 Natriuretic peptide B (Bld) [Mass/Vol] 1458.0 pg/mL Critically high <=900.0 [facility] Comment on above: Performed By: #### L IPID, TSH, FT3 #### [facility] [address] [place] [address] Dr. Andrey Hargrove CBC AUTO DIFFon 10-26-2022 BASO # 0.1 103/ul Normal 0.0-0.1 [facility] Comment on above: Performed By: #### V ITAD, FETIBC, FERR #### [facility] [address] [place] [address] Dr. Andrey Hargrove Basophils/100 WBC (Bld) 0.7 % Normal 0.2-2.0 [facility] Comment on above: Performed By: #### V ITAD, FETIBC, FERR #### [facility] [address] [place] [address] Dr. Andrey Hargrove EO # 0.4 103/ul Normal 0.0-0.7 [facility] Comment on above: Performed By: #### V ITAD, FETIBC, FERR #### [facility] [address] [place] [address] Dr. Andrey Hargrove Eosinophils/100 WBC (Bld) 4.6 % Normal 0.9-7.0 [facility] Comment on above: Performed By: #### V ITAD, FETIBC, FERR #### [facility] [address] [place] [address] Dr. Andrey Hargrove Erythrocyte distribution width (RBC) [Ratio] 13.7 % Normal 11.0-15.0 [facility] Comment on above: Performed By: #### V ITAD, FETIBC, FERR #### [facility] [address] [place] [address] Dr. Andrey Hargrove Hematocrit (Bld) [Volume fraction] 35.5 % Critically low 36.0-48.0 [facility] Comment on above: Performed By: #### V ITAD, FETIBC, FERR #### [facility] [address] [place] [address] Dr. Andrey Hargrove Hemoglobin (Bld) [Mass/Vol] 12.0 g/dL Normal 12.0-16.0 [facility] Comment on above: Performed By: #### V ITAD, FETIBC, FERR #### [facility] [address] [place] [address] Dr. Andrey Hargrove IG # 0.02 10e3/ul Normal 0.00-0.03 [facility] Comment on above: Performed By: #### V ITAD, FETIBC, FERR #### [facility] [address] [place] [address] Dr. Andrey Hargrove IG % 0.2 % Normal 0.0-0.5 [facility] Comment on above: Performed By: #### V ITAD, FETIBC, FERR #### [facility] [address] [place] [address] Dr. Andrey Hargrove LYMPH # 1.5 103/ul Normal 1.2-3.8 [facility] Comment on above: Performed By: #### V ITAD, FETIBC, FERR #### [facility] [address] [place] [address] Dr. Andrey Hargrove Lymphocytes/100 WBC (Bld) 18.1 % Critically low 20.5-60.0 [facility] Comment on above: Performed By: #### V ITAD, FETIBC, FERR #### [facility] [address] [place] [address] Dr. Andrey Hargrove MANUAL DIFF REQ NO Normal [facility] Comment on above: Performed By: #### V ITAD, FETIBC, FERR #### [facility] [address] [place] [address] Dr. Andrey Hargrove MCH (RBC) [Entitic mass] 29.3 pg Normal 26.7-34.0 [facility] Comment on above: Performed By: #### V ITAD, FETIBC, FERR #### [facility] [address] [place] [address] Dr. Andrey Hargrove MCHC (RBC) [Mass/Vol] 33.8 g/dL Normal 29.9-35.2 [facility] Comment on above: Performed By: #### V ITAD, FETIBC, FERR #### [facility] [address] [place] [address] Dr. Andrey Hargrove MCV (RBC) [Entitic vol] 86.8 fL Normal 81.0-99.0 [facility] Comment on above: Performed By: #### V ITAD, FETIBC, FERR #### [facility] [address] [place] [address] Dr. Andrey Hargrove MONO # 0.7 103/ul Normal 0.3-0.8 [facility] Comment on above: Performed By: #### V ITAD, FETIBC, FERR #### [facility] [address] [place] [address] Dr. Andrey Hargrove Monocytes/100 WBC (Bld) 7.9 % Normal 1.7-12.0 [facility] Comment on above: Performed By: #### V ITAD, FETIBC, FERR #### [facility] [address] [place] [address] Dr. Andrey Hargrove NEUT # 5.7 103/ul Normal 1.4-6.5 [facility] Comment on above: Performed By: #### V ITAD, FETIBC, FERR #### [facility] [address] [place] [address] Dr. Andrey Hargrove Neutrophils/100 WBC (Bld) 68.5 % Normal 43.0-75.0 [facility] Comment on above: Performed By: #### V ITAD, FETIBC, FERR #### [facility] [address] [place] [address] Dr. Andrey Hargrove Platelet mean volume (Bld) [Entitic vol] 10.4 fL Normal 9.5-13.5 [facility] Comment on above: Performed By: #### V ITAD, FETIBC, FERR #### [facility] [address] [place] [address] Dr. Andrey Hargrove PLT 204 103/ul Normal 150-450 [facility] Comment on above: Performed By: #### V ITAD, FETIBC, FERR #### [facility] [address] [place] [address] Dr. Andrey Hargrove RBC 4.09 106/ul Critically low 4.20-5.40 [facility] [place] Comment on above: Performed By: #### V ITAD, FETIBC, FERR #### [facility] [address] [place] [address] Dr. Andrey Hargrove WBC 8.3 103/ul Normal 4.0-11.0 [facility] Comment on above: Performed By: #### V ITAD, FETIBC, FERR #### [facility] [address] [place] [address] Dr. Andrey Hargrove PROF CHEM 8 (BAS METB)on Anion gap [Moles/Vol] 11.1 mmol/L Normal [facility] Comment on above: Performed By: #### L IPID, TSH, FT3 #### [facility] [address] [place] [address] Dr. Andrey Hargrove Calcium [Mass/Vol] 9.2 mg/dL Normal 8.5-10.1 [facility] Comment on above: Performed By: #### L IPID, TSH, FT3 #### [facility] [address] [place] [address] Dr. Andrey Hargrove Chloride [Moles/Vol] 102 mmol/L Normal 98-107 [facility] Comment on above: Performed By: #### L IPID, TSH, FT3 #### [facility] [address] [place] [address] Dr. Andrey Hargrove CO2 [Moles/Vol] 31.2 mmol/L Normal 21.0-32.0 [facility] Comment on above: Performed By: #### L IPID, TSH, FT3 #### [facility] [address] [place] [address] Dr. Andrey Hargrove Creatinine [Mass/Vol] 1.79 mg/dL Critically high 0.55-1.02 [facility] Comment on above: Performed By: #### L IPID, TSH, FT3 #### [facility] [address] [place] [address] Dr. Andrey Hargrove EGFR-AF RWANDAN 34 mL/min/1.73m2 Critically low >=60 [facility] Comment on above: Performed By: #### L IPID, TSH, FT3 #### [facility] [address] [place] [address] Dr. Andrey Hargrove EGFR-NON AF RWANDAN 28 mL/min/1.73m2 Critically low >=60 [facility] Comment on above: Performed By: #### L IPID, TSH, FT3 #### [facility] [address] [place] [address] Dr. Andrey Hargrove Glucose [Mass/Vol] 148 mg/dL Critically high 74-106 [facility] Comment on above: Performed By: #### L IPID, TSH, FT3 #### [facility] [address] [place] [address] Dr. Andrey Hargrove Potassium [Moles/Vol] 3.3 mmol/L Critically low 3.5-5.1 [facility] Comment on above: Performed By: #### L IPID, TSH, FT3 #### [facility] [address] [place] [address] Dr. Andrey Hargrove Sodium [Moles/Vol] 141 mmol/L Normal 136-145 [facility] Comment on above: Performed By: #### L IPID, TSH, FT3 #### [facility] [address] [place] [address] Dr. Andrey Hargrove Urea nitrogen [Mass/Vol] 41.0 mg/dL Critically high 7.0-18 .0 [facility] Comment on above: Performed By: #### L IPID, TSH, FT3 #### [facility] [address] [place], [place] [address] Dr. Andrey Hargrove Urea nitrogen/Creatinine [Mass ratio] 22.9 mg/mg Normal [facility] Comment on above: Performed By: #### L IPID, TSH, FT3 #### [facility] [address] [place], [place] [address] Dr. Andrey Hargrove PTH INTACTon 08-24-2022 PTH, Intact 44 pg/mL Normal 15-65 [facility] Comment on above: Performed By: #### V ITAD, FETIBC, FERR #### [facility] [address] [place] [id number] [address] Andrey Hargrove US THYROIDon 08-24-2022 US [...] RENETTA RENEE Date: 2022-08-24 16:16 Normal [facility] FERRITINon 08-23-2022 Ferritin [Mass/Vol] 114.0 ng/mL Normal 8.0-252.0 [facility] Comment on above: Performed By: #### V ITAD, FETIBC, FERR #### [facility] [address] [place] [address] Dr. Andrey Hargrove HEMOGRAM AND PLATELon 2022 Hematocrit (Bld) [Volume fraction] 34.9 % Critically low 36.0-48.0 [facility] Comment on above: Performed By: #### V ITAD, FETIBC, FERR #### [facility] [address] [place] [address] Dr. Andrey Hargrove Hemoglobin (Bld) [Mass/Vol] 11.8 g/dL Critically low 12.0-16.0 [facility] Comment on above: Performed By: #### V ITAD, FETIBC, FERR #### [facility] [address] [place] [address] Dr. Andrey Hargrove MCH (RBC) [Entitic mass] 28.6 pg Normal 26.7-34.0 [facility] Comment on above: Performed By: #### V ITAD, FETIBC, FERR #### [facility] [address] [place] [address] Dr. Andrey Hargrove MCHC (RBC) [Mass/Vol] 33.8 g/dL Normal 29.9-35.2 [facility] Comment on above: Performed By: #### V ITAD, FETIBC, FERR #### [facility] [address] [place] [address] Dr. Andrey Hargrove MCV (RBC) [Entitic vol] 84.7 fL Normal 81.0-99.0 [facility] Comment on above: Performed By: #### V ITAD, FETIBC, FERR #### [facility] [address] [place] [address] Dr. Andrey Hargrove PLT 215 103/ul Normal 150-450 [facility] Comment on above: Performed By: #### V ITAD, FETIBC, FERR #### [facility] [address] [place] [address] [address] Andrey Hargrove RBC 4.12 106/ul Critically low 4.20-5.40 [facility] [place] Comment on above: Performed By: #### V ITAD, FETIBC, FERR #### [facility] [address] [place] [address] Dr. Andrey Hargrove WBC 9.2 103/ul Normal 4.0-11.0 [facility] Comment on above: Performed By: #### V ITAD, FETIBC, FERR #### [facility] [address] [place] [address] Dr. Andrey Hargrove IRON AND TIBCon 08-23-2022 % SATURATION 15.4 % Normal [facility] Comment on above: Performed By: #### V ITAD, FETIBC, FERR #### [facility] [address] [place] [address] Dr. Andrey Hargrove Iron [Mass/Vol] 44.0 ug/dL Critically low 50.0-170.0 [facility] Comment on above: Performed By: #### V ITAD, FETIBC, FERR #### [facility] [address] [place] [address] Dr. Andrey Hargrove TIBC DIRECT 286.0 ug/dL Normal 250.0-450.0 [facility] Comment on above: Performed By: #### V ITAD, FETIBC, FERR #### [facility] [address] [place] [address] Dr. Andrey Hargrove MAGNESIUMon 08-23-2022 Magnesium [Mass/Vol] 2.1 mg/dL Normal 1.8-2.4 [facility] Comment on above: Performed By: #### L IPID, TSH, FT3 #### [facility] [address] [place] [address] Dr. Andrey Hargrove RENAL FUNCTION PANELon 08-23 Albumin [Mass/Vol] 3.3 g/dL Critically low 3.4-5.0 [facility] Comment on above: Performed By: #### L IPID, TSH, FT3 #### [facility] [address] [place], [place] [id number] Dr. Andrey Hargrove Calcium [Mass/Vol] 9.4 mg/dL Normal 8.5-10.1 [facility] Comment on above: Performed By: #### L IPID, TSH, FT3 #### [facility] [address] [place] [address] [address] Andrey Hargrove Chloride [Moles/Vol] 103 mmol/L Normal 98-107 [facility] Comment on above: Performed By: #### L IPID, TSH, FT3 #### [facility] [address] [place] [address] [address] Andrey Hargrove CO2 [Moles/Vol] 26.8 mmol/L Normal 21.0-32.0 [facility] Comment on above: Performed By: #### L IPID, TSH, FT3 #### [facility] [address] [place] [address] Dr. Andrey Hargrove Creatinine [Mass/Vol] 1.94 mg/dL Critically high 0.55-1.02 [facility] Comment on above: Performed By: #### L IPID, TSH, FT3 #### [facility] [address] [place] [address] [address] Andrey Hargrove EGFR-AF RWANDAN 31 mL/min/1.73m2 Critically low >=60 [facility] Comment on above: Performed By: #### L IPID, TSH, FT3 #### [facility] [address] [place] [address] [address] Andrey Hargrove EGFR-NON AF RWANDAN 25 mL/min/1.73m2 Critically low >=60 [facility] Comment on above: Performed By: #### L IPID, TSH, FT3 #### [facility] [address] [place] [address] [address] Andrey Hargrove Glucose [Mass/Vol] 166 mg/dL Critically high 74-106 [facility] Comment on above: Performed By: #### L IPID, TSH, FT3 #### [facility] [address] [address] [address] Andrey Hargrove Phosphate [Mass/Vol] 4.6 mg/dL Normal 2.6-4.7 [facility] Comment on above: Performed By: #### L IPID, TSH, FT3 #### [facility] [address] [place] [address] Dr. Andrey Hargrove Potassium [Moles/Vol] 4.3 mmol/L Normal 3.5-5.1 [facility] Comment on above: Performed By: #### L IPID, TSH, FT3 #### [facility] [address] [place] [address] Dr. Andrey Hargrove Sodium [Moles/Vol] 137 mmol/L Normal 136-145 [facility] Comment on above: Performed By: #### L IPID, TSH, FT3 #### [facility] [address] [place] [address] Dr. Andrey Hargrove Urea nitrogen [Mass/Vol] 39.0 mg/dL Critically high 7.0-18 .0 [facility] Comment on above: Performed By: #### L IPID, TSH, FT3 #### [facility] [address] [place] [address] Dr. Andrey Hargrove UA RANDOM W/MICROSCOPICon BACTERIA NONE SEEN Normal NONE SEEN [facility] Comment on above: Performed By: #### V ITAD, FETIBC, FERR #### [facility] [address] [place] [address] Dr. Andrey Hargrove Bilirubin Ql (U) Negative Normal NEGATIVE [facility] Comment on above: Performed By: #### V ITAD, FETIBC, FERR #### [facility] [address] [place] [address] Dr. nAdrey Hargrove CAST NONE SEEN Normal NONE SEEN [facility] Comment on above: Performed By: #### V ITAD, FETIBC, FERR #### [facility] [address] [place] [address] Dr. Andrey Hargrove Clarity (U) CLEAR Normal CLEAR [facility] Comment on above: Performed By: #### V ITAD, FETIBC, FERR #### [facility] [address] [place] [address] Dr. Andrey Hargrove Color (U) LT. YELLOW Normal YELLOW [facility] Comment on above: Performed By: #### V ITAD, FETIBC, FERR #### [facility] [address] [place] [address] [address] Andrey Hargrove Crystals LM Nom (Urine sed) NONE SEEN Normal NONE SEEN [facility] Comment on above: Performed By: #### V ITAD, FETIBC, FERR #### [facility] [address] [address] [address] Andrey Hargrove Epithelial cells LM Ql (Urine sed) RARE Normal NONE SEEN /RARE [facility] Comment on above: Performed By: #### V ITAD, FETIBC, FERR #### [facility] [address] [place] [address] Dr. Andrey Hargrove Glucose Ql (U) Negative Normal NEGATIVE [facility] Comment on above: Performed By: #### V ITAD, FETIBC, FERR #### [facility] [address] [place] [address] Dr. Andrey Hargrove Hemoglobin Ql (U) Negative Normal NEGATIVE [facility] Comment on above: Performed By: #### V ITAD, FETIBC, FERR #### [facility] [address] [place] [address] Dr. Andrey Hargrove Ketones Ql (U) Negative Normal NEGATIVE [facility] Comment on above: Performed By: #### V ITAD, FETIBC, FERR #### [facility] [address] [place] [address] [address] Andrey Hargrove LEUKOCYTES Negative Normal NEGATIVE [facility] Comment on above: Performed By: #### V ITAD, FETIBC, FERR #### [facility] [address] [address] [address] Andrey Hargrove MUCOUS NONE SEEN Normal NONE SEEN [facility] Comment on above: Performed By: #### V ITAD, FETIBC, FERR #### [facility] [address] [place] [address] Dr. Andrey Hargrove Nitrite Ql (U) Negative Normal NEGATIVE [facility] Comment on above: Performed By: #### V ITAD, FETIBC, FERR #### [facility] [address] [place] [address] Dr. Andrey Hargrove pH (U) 6.5 [pH] Normal 5-9 [facility] Comment on above: Performed By: #### V ITAD, FETIBC, FERR #### [facility] [address] [place] [address] Dr. Andrey Hargrove RBC NONE SEEN Abnormal 0-2 [facility] Comment on above: Performed By: #### V ITAD, FETIBC, FERR #### [facility] [address] [place] [address] Dr. Andrey Hargrove SPEC GRAVITY 1.010 Normal 1.005-<=1.02 5 [facility] Comment on above: Performed By: #### V ITAD, FETIBC, FERR #### [facility] [address] [place] [address] Dr. Andrey Hargrove UA PROTEIN 30 mg/dl Abnormal NEGATIVE/ TRACE [facility] Comment on above: Performed By: #### V ITAD, FETIBC, FERR #### [facility] [address] [place] [address] Dr. Andrey Hargrove Urobilinogen Qn (U) 0.2 {Kelly'U}/dL Normal 0.2 - 1. 0 [facility] Comment on above: Performed By: #### V ITAD, FETIBC, FERR #### [facility] [address] [place] [address] Dr. Andrey Hargrove WBC NONE SEEN Normal NONE SEEN [facility] Comment on above: Performed By: #### V ITAD, FETIBC, FERR #### [facility] [address] [place] [address] Dr. Andrey Hargrove URIC ACID SERUMon 08-23-2022 Urate [Mass/Vol] 5.8 mg/dL Normal 2.6-6.0 [facility] Comment on above: Performed By: #### L IPID, TSH, FT3 #### [facility] [address] [place] [address] Dr. Andrey Hargrove VITAMIN D 25 OHon 08-23-2022 VIT D 25-OH 69.0 ng/mL Normal [facility] Comment on above: Performed By: #### V ITAD, FETIBC, FERR #### [facility] [address] [place], [place] [address] Dr. Andrey Hargrove VIT D RANGES SEE BELOW Normal [facility] Comment on above: Result Comment: <20 ng/mL Vit D deficient 20 - <30 ng/mL Vit D insufficient 30 - 100 ng/mL Vit D sufficient >100 ng/mL Potential Toxicity Performed By: #### V ITAD, FETIBC, FERR #### [facility] [address] [place], [place] [address] Dr. Andrey Hargrove ECHOCARDIO M/2D COMPLETEon 1 08-14-2021 ECHOCARDIO M/2D COMPLETE Patient: CLAUDIA ESTRELLA Exam Date: 06/13/2022 : 1950 Gender:F Ordering : DR KARTHIK FISH M.D. Admission #: [id number] Family : Order #: [id number] CLICK HERE TO VIEW EXAM ECHOCARDIOGRAM REPORT [...] Fish M.D. on 06/14/2022 at 17:50 Normal [facility] BNPon 06-10-2022 Natriuretic peptide B (Bld) [Mass/Vol] 4197.0 pg/mL Critically high <=900.0 [facility] Comment on above: Performed By: #### L IPID, TSH, FT3 #### [facility] [address] [place] [address] Dr. Andrey Hargrove PROF CHEM 8 (BAS METB)on Anion gap [Moles/Vol] 10.4 mmol/L Normal [facility] Comment on above: Performed By: #### V ITAD, FETIBC, FERR #### [facility] [address] [place] [address] [address] Andrey Hargrove Calcium [Mass/Vol] 9.4 mg/dL Normal 8.5-10.1 [facility] Comment on above: Performed By: #### V ITAD, FETIBC, FERR #### [facility] [address] [place] [address] Dr. Andrey Hargrove Chloride [Moles/Vol] 99 mmol/L Normal 98-107 [facility] Comment on above: Performed By: #### V ITAD, FETIBC, FERR #### [facility] [address] [place] [address] Dr. Andrey Hargrove CO2 [Moles/Vol] 33.8 mmol/L Critically high 21.0-32.0 [facility] Comment on above: Performed By: #### V ITAD, FETIBC, FERR #### [facility] [address] [place] [address] Dr. Andrey Hargrove Creatinine [Mass/Vol] 2.09 mg/dL Critically high 0.55-1.02 [facility] Comment on above: Performed By: #### V ITAD, FETIBC, FERR #### [facility] [address] [place] [address] [address] Andrey Hargrove EGFR-AF RWANDAN 28 mL/min/1.73m2 Critically low >=60 [facility] Comment on above: Performed By: #### V ITAD, FETIBC, FERR #### [facility] [address] [place] [address] Dr. Andrey Hargrove EGFR-NON AF RWANDAN 23 mL/min/1.73m2 Critically low >=60 [facility] Comment on above: Performed By: #### V ITAD, FETIBC, FERR #### [facility] [address] [place] [address] [address] Andrey Hargrove Glucose [Mass/Vol] 75 mg/dL Normal 74-106 [facility] Comment on above: Performed By: #### V ITAD, FETIBC, FERR #### [facility] [address] [place] [address] Dr. Andrey Hargrove Potassium [Moles/Vol] 3.2 mmol/L Critically low 3.5-5.1 [facility] Comment on above: Performed By: #### V ITAD, FETIBC, FERR #### [facility] [address] [place] [address] [address] Andrey Hargrove Sodium [Moles/Vol] 140 mmol/L Normal 136-145 [facility] Comment on above: Performed By: #### V ITAD, FETIBC, FERR #### [facility] [address] [address] [address] Andrey Hargrove Urea nitrogen [Mass/Vol] 61.0 mg/dL Critically high 7.0-18 .0 [facility] Comment on above: Performed By: #### V ITAD, FETIBC, FERR #### [facility] [address] [place] [address] Dr. Andrey Hargrove Urea nitrogen/Creatinine [Mass ratio] 29.2 mg/mg Normal [facility] Comment on above: Performed By: #### V ITAD, FETIBC, FERR #### [facility] [address] [place] [address] Dr. Andrey Hargrove BNPon 06-02-2022 Natriuretic peptide B (Bld) [Mass/Vol] 9365.0 pg/mL Critically high <=900.0 [facility] Comment on above: Performed By: #### V ITAD, FETIBC, FERR #### [facility] [address] [place] [address] Dr. Andrey Hargrove PROF CHEM 8 (BAS METB)on Anion gap [Moles/Vol] 10.7 mmol/L Normal [facility] Comment on above: Performed By: #### V ITAD, FETIBC, FERR #### [facility] [address] [place] [address] Dr. Andrey Hargrove Calcium [Mass/Vol] 9.1 mg/dL Normal 8.5-10.1 [facility] Comment on above: Performed By: #### V ITAD, FETIBC, FERR #### [facility] [address] [place] [address] Dr. Andrey Hargrove Chloride [Moles/Vol] 98 mmol/L Normal 98-107 [facility] Comment on above: Performed By: #### V ITAD, FETIBC, FERR #### [facility] [address] [place] [address] Dr. Andrey Hargrove CO2 [Moles/Vol] 29.4 mmol/L Normal 21.0-32.0 [facility] Comment on above: Performed By: #### V ITAD, FETIBC, FERR #### [facility] [address] [place] [address] Dr. Andrey Hargrove Creatinine [Mass/Vol] 2.44 mg/dL Critically high 0.55-1.02 [facility] Comment on above: Performed By: #### V ITAD, FETIBC, FERR #### [facility] [address] [place] [address] Dr. Andrey Hargrove EGFR-AF RWANDAN 24 mL/min/1.73m2 Critically low >=60 [facility] Comment on above: Performed By: #### V ITAD, FETIBC, FERR #### [facility] [address] [place] [address] Dr. Andrey Hargrove EGFR-NON AF RWANDAN 20 mL/min/1.73m2 Critically low >=60 [facility] Comment on above: Performed By: #### V ITAD, FETIBC, FERR #### [facility] [address] [place] [address] Dr. Andrey Hargrove Glucose [Mass/Vol] 135 mg/dL Critically high 74-106 [facility] Comment on above: Performed By: #### V ITAD, FETIBC, FERR #### [facility] [address] [place] [address] Dr. Andrey Hargrove Potassium [Moles/Vol] 4.1 mmol/L Normal 3.5-5.1 [facility] Comment on above: Performed By: #### V ITAD, FETIBC, FERR #### [facility] [address] [place] [address] Dr. Andrey Hargrove Sodium [Moles/Vol] 134 mmol/L Critically low 136-145 [facility] Comment on above: Performed By: #### V ITAD, FETIBC, FERR #### [facility] [address] [place] [address] Dr. Andrey Hargrove Urea nitrogen [Mass/Vol] 81.0 mg/dL Critically high 7.0-18 .0 [facility] Comment on above: Performed By: #### V ITAD, FETIBC, FERR #### [facility] [address] [place] [address] Dr. Andrey Hargrove Urea nitrogen/Creatinine [Mass ratio] 33.2 mg/mg Normal [facility] Comment on above: Performed By: #### V ITAD, FETIBC, FERR #### [facility] [address] [place] [address] Dr. Andrey Hargrove XR ELBOW RT MIN [...] BETSY LAZARO Date: 2022-06-01 17:24 Normal [facility] RENAL FUNCTION PANELon 05-27 Albumin [Mass/Vol] 3.4 g/dL Normal 3.4-5.0 [facility] Comment on above: Performed By: #### L IPID, TSH, FT3 #### [facility] [address] [address] [address] Andrey Hargrove Calcium [Mass/Vol] 9.1 mg/dL Normal 8.5-10.1 [facility] Comment on above: Performed By: #### L IPID, TSH, FT3 #### [facility] [address] [address] [address] Andrey Hargrove Chloride [Moles/Vol] 99 mmol/L Normal 98-107 [facility] Comment on above: Performed By: #### L IPID, TSH, FT3 #### [facility] [address] [address] [address] Andrey Hargrove CO2 [Moles/Vol] 30.9 mmol/L Normal 21.0-32.0 [facility] Comment on above: Performed By: #### L IPID, TSH, FT3 #### [facility] [address] [address] [address] Andrey Hargrove Creatinine [Mass/Vol] 2.24 mg/dL Critically high 0.55-1.02 [facility] Comment on above: Performed By: #### L IPID, TSH, FT3 #### [facility] [address] [place] [address] Dr. Andrey Hargrove EGFR-AF RWANDAN 26 mL/min/1.73m2 Critically low >=60 [facility] Comment on above: Performed By: #### L IPID, TSH, FT3 #### [facility] [address] [place] [address] Dr. Andrey Hargrove EGFR-NON AF RWANDAN 22 mL/min/1.73m2 Critically low >=60 [facility] Comment on above: Performed By: #### L IPID, TSH, FT3 #### [facility] [address] [place] [address] Dr. Andrey Hargrove Glucose [Mass/Vol] 94 mg/dL Normal 74-106 [facility] Comment on above: Performed By: #### L IPID, TSH, FT3 #### [facility] [address] [place] [address] Dr. Andrey Hargrove Phosphate [Mass/Vol] 4.7 mg/dL Normal 2.6-4.7 [facility] Comment on above: Performed By: #### L IPID, TSH, FT3 #### [facility] [address] [place] [address] Dr. Andrey Hargrove Potassium [Moles/Vol] 3.5 mmol/L Normal 3.5-5.1 [facility] Comment on above: Performed By: #### L IPID, TSH, FT3 #### [facility] [address] [place] [address] Dr. Andrey Hargrove Sodium [Moles/Vol] 136 mmol/L Normal 136-145 [facility] Comment on above: Performed By: #### L IPID, TSH, FT3 #### [facility] [address] [place] [address] Dr. Andrey Hargrove Urea nitrogen [Mass/Vol] 72.0 mg/dL Critically high 7.0-18 .0 [facility] Comment on above: Performed By: #### L IPID, TSH, FT3 #### [facility] [address] [place] [address] Dr. Andrey Hargrove PTH INTACTon 05-24-2022 PTH, Intact 24 pg/mL Normal 15-65 [facility] Comment on above: Performed By: #### L IPID, TSH, FT3 #### [facility] [address] [place] [address] Dr. Andrey Hargrove FERRITINon 05-23-2022 Ferritin [Mass/Vol] 190.0 ng/mL Normal 8.0-252.0 [facility] Comment on above: Performed By: #### L IPID, TSH, FT3 #### [facility] [address] [place] [address] Dr. Andrey Hargrove FREE T3on 05-23-2022 FREE T3 1.96 pg/mlL Critically low 2.18-3.98 [facility] [place] Comment on above: Performed By: #### L IPID, TSH, FT3 #### [facility] [address] [place] [address] Dr. Andrey Hargrove FREE T4on 05-23-2022 Free T4 [Mass/Vol] 1.33 ng/dL Normal 0.76-1.46 [facility] Comment on above: Performed By: #### L IPID, TSH, FT3 #### [facility] [address] [place] [address] Dr. Andrey Hargrove HEMOGRAM AND PLATELon 2021 Hematocrit (Bld) [Volume fraction] 30.6 % Critically low 36.0-48.0 [facility] Comment on above: Performed By: #### V ITAD, FETIBC, FERR #### [facility] [address] [place] [address] Dr. Andrey Hargrove Hemoglobin (Bld) [Mass/Vol] 10.4 g/dL Critically low 12.0-16.0 [facility] Comment on above: Performed By: #### V ITAD, FETIBC, FERR #### [facility] [address] [place] [address] Dr. Andrey Hargrove MCH (RBC) [Entitic mass] 28.6 pg Normal 26.7-34.0 [facility] Comment on above: Performed By: #### V ITAD, FETIBC, FERR #### [facility] [address] [place] [address] Dr. Andrey Hargrove MCHC (RBC) [Mass/Vol] 34.0 g/dL Normal 29.9-35.2 [facility] Comment on above: Performed By: #### V ITAD, FETIBC, FERR #### [facility] [address] [place] [address] Dr. Andrey Hargrove MCV (RBC) [Entitic vol] 84.1 fL Normal 81.0-99.0 [facility] Comment on above: Performed By: #### V ITAD, FETIBC, FERR #### [facility] [address] [place] [address] Dr. Andrey Hargrove PLT 179 103/ul Normal 150-450 [facility] Comment on above: Performed By: #### V ITAD, FETIBC, FERR #### [facility] [address] [place] [address] Dr. Andrey Hargrove RBC 3.64 106/ul Critically low 4.20-5.40 [facility] [place] Comment on above: Performed By: #### V ITAD, FETIBC, FERR #### [facility] [address] [place] [address] Dr. Andrey Hargrove WBC 9.5 103/ul Normal 4.0-11.0 [facility] Comment on above: Performed By: #### V ITAD, FETIBC, FERR #### [facility] [address] [place] [address] Dr. Andrey Hargrove IRON AND TIBCon 05-23-2022 % SATURATION 15.9 % Normal [facility] Comment on above: Performed By: #### L IPID, TSH, FT3 #### [facility] [address] [place] [address] Dr. Andrey Hargrove Iron [Mass/Vol] 44.0 ug/dL Critically low 50.0-170.0 [facility] Comment on above: Performed By: #### L IPID, TSH, FT3 #### [facility] [address] [address] [address] Andrey Hargrove TIBC DIRECT 276.0 ug/dL Normal 250.0-450.0 [facility] Comment on above: Performed By: #### L IPID, TSH, FT3 #### [facility] [address] [place] [address] Dr. Andrey Hargrove LIPID PROFILEon 05-23-2022 CHOL-HDL RATIO NORM SEE BELOW Normal [facility] Comment on above: Result Comment: 3.3 - 4.4 LOW RISK 4.4 - 7.1 AVERAGE RISK 7.1 - 11.0 MODERATE RISK >11.0 HIGH RISK Performed By: #### L IPID, TSH, FT3 #### [facility] [address] [place] [address] Dr. Andrey Hargrove Cholesterol [Mass/Vol] 129 mg/dL Normal <=200 [facility] Comment on above: Performed By: #### L IPID, TSH, FT3 #### [facility] [address] [place] [address] Dr. Andrey Hargrove Cholesterol in HDL [Mass/Vol] 55 mg/dL Normal 40-60 [facility] Comment on above: Performed By: #### L IPID, TSH, FT3 #### [facility] [address] [place] [address] Dr. Andrey Hargrove Cholesterol in LDL [Mass/Vol] 59.6 mg/dL Normal [facility] Comment on above: Performed By: #### L IPID, TSH, FT3 #### [facility] [address] [place] [address] Dr. Andrey Hargrove Cholesterol.total/Choles terol in HDL [Mass ratio] 2.3 {ratio} Normal [facility] Comment on above: Performed By: #### L IPID, TSH, FT3 #### [facility] [address] [place] [address] Dr. Andrey Hargrove HDL NORMAL > or = 60 mg/dl - LOW CARDIOVASCULAR RISK <40 mg/dl - HIGH CARDIOVASCULAR RISK Normal [facility] Comment on above: Performed By: #### L IPID, TSH, FT3 #### [facility] [address] [place] [address] Dr. Andrey Hargrove LDL CALC NORMAL SEE BELOW Normal [facility] [place] Comment on above: Result Comment: <100 mg/dl OPTIMAL 100 - 129 mg/dl NEAR OR ABOVE OPTIMAL 130 - 159 mg/dl BORDERLINE HIGH 160 - 189 mg/dl HIGH >190 mg/dl VERY HIGH Performed By: #### L IPID, TSH, FT3 #### [facility] [address] [address] [address] Andrey Hargrove Triglyceride [Mass/Vol] 72 mg/dL Normal <=150 [facility] Comment on above: Performed By: #### L IPID, TSH, FT3 #### [facility] [address] [place] [address] Dr. Andrey Hargrove VLDL CALC 14.4 mg/dL Normal [facility] Comment on above: Performed By: #### L IPID, TSH, FT3 #### [facility] [address] [place] [address] Dr. Andrey Hargrove MAGNESIUMon 05-23-2022 Magnesium [Mass/Vol] 2.2 mg/dL Normal 1.8-2.4 [facility] Comment on above: Performed By: #### L IPID, TSH, FT3 #### [facility] [address] [place] [address] Dr. Andrey Hargrove RENAL FUNCTION PANELon 05-23 Albumin [Mass/Vol] 3.5 g/dL Normal 3.4-5.0 [facility] Comment on above: Performed By: #### L IPID, TSH, FT3 #### [facility] [address] [place] [address] Dr. Andrey Hargrove Calcium [Mass/Vol] 10.0 mg/dL Normal 8.5-10.1 [facility] Comment on above: Performed By: #### L IPID, TSH, FT3 #### [facility] [address] [place] [address] Dr. Andrey Hargrove Chloride [Moles/Vol] 98 mmol/L Normal 98-107 [facility] Comment on above: Performed By: #### L IPID, TSH, FT3 #### [facility] [address] [place] [address] [address] Andrey Hargrove CO2 [Moles/Vol] 34.3 mmol/L Critically high 21.0-32.0 [facility] Comment on above: Performed By: #### L IPID, TSH, FT3 #### [facility] [address] [place] [address] Dr. Andrey Hargrove Creatinine [Mass/Vol] 2.24 mg/dL Critically high 0.55-1.02 [facility] Comment on above: Performed By: #### L IPID, TSH, FT3 #### [facility] [address] [place] [address] Dr. Andrey Hargrove EGFR-AF RWANDAN 26 mL/min/1.73m2 Critically low >=60 [facility] Comment on above: Performed By: #### L IPID, TSH, FT3 #### [facility] [address] [place] [address] Dr. Andrey Hargrove EGFR-NON AF RWANDAN 22 mL/min/1.73m2 Critically low >=60 [facility] Comment on above: Performed By: #### L IPID, TSH, FT3 #### [facility] [address] [place] [address] Dr. Andrey Hargrove Glucose [Mass/Vol] 123 mg/dL Critically high 74-106 T [facility] Comment on above: Performed By: #### L IPID, TSH, FT3 #### [facility] [address] [place] [address] Dr. Andrey Hargrove Phosphate [Mass/Vol] 5.2 mg/dL Critically high 2.6-4.7 [facility] Comment on above: Performed By: #### L IPID, TSH, FT3 #### [facility] [address] [place] [address] Dr. Andrey Hargrove Potassium [Moles/Vol] 3.0 mmol/L Critically low 3.5-5.1 [facility] Comment on above: Performed By: #### L IPID, TSH, FT3 #### [facility] [address] [place] [address] Dr. Andrey Hargrove Sodium [Moles/Vol] 137 mmol/L Normal 136-145 [facility] Comment on above: Performed By: #### L IPID, TSH, FT3 #### [facility] [address] [place] [address] Dr. Andrey Hargrove Urea nitrogen [Mass/Vol] 80.0 mg/dL Critically high 7.0-18 .0 [facility] Comment on above: Performed By: #### L IPID, TSH, FT3 #### [facility] [address] [place] [address] Dr. Andrey Hargrove TSHon 05-23-2022 TSH 4.652 uIU/mL Critically high 0.358-3.740 [facility] Comment on above: Performed By: #### L IPID, TSH, FT3 #### [facility] [address] [place] [address] Dr. Andrey Hargrove UA RANDOM W/MICROSCOPICon BACTERIA NONE SEEN Normal NONE SEEN [facility] Comment on above: Performed By: #### V ITAD, FETIBC, FERR #### [facility] [address] [place] [address] Dr. Andrey Hargrove Bilirubin Ql (U) Negative Normal NEGATIVE [facility] Comment on above: Performed By: #### V ITAD, FETIBC, FERR #### [facility] [address] [place] [address] Dr. Andrey Hargrove CAST NONE SEEN Normal NONE SEEN [facility] Comment on above: Performed By: #### V ITAD, FETIBC, FERR #### [facility] [address] [place] [address] Dr. Andrey Hargrove Clarity (U) CLEAR Normal CLEAR [facility] Comment on above: Performed By: #### V ITAD, FETIBC, FERR #### [facility] [address] [place] [address] Dr. Andrey Hargrove Color (U) LT. YELLOW Normal YELLOW [facility] Comment on above: Performed By: #### V ITAD, FETIBC, FERR #### [facility] [address] [place] [address] [address] Andrey Hargrove Crystals LM Nom (Urine sed) NONE SEEN Normal NONE SEEN [facility] Comment on above: Performed By: #### V ITAD, FETIBC, FERR #### [facility] [address] [place] [address] [address] Andrey Hargrove Epithelial cells LM Ql (Urine sed) FEW Abnormal NONE SEEN /RARE [facility] Comment on above: Performed By: #### V ITAD, FETIBC, FERR #### [facility] [address] [place] [address] [address] Andrey Hargrove Glucose Ql (U) Negative Normal NEGATIVE [facility] Comment on above: Performed By: #### V ITAD, FETIBC, FERR #### [facility] [address] [place] [address] Dr. Andrey Hargrove Hemoglobin Ql (U) TRACE-INTACT Abnormal NEGATIVE [facility] Comment on above: Performed By: #### V ITAD, FETIBC, FERR #### [facility] [address] [place] [address] Dr. Andrey Hargrove Ketones Ql (U) Negative Normal NEGATIVE [facility] Comment on above: Performed By: #### V ITAD, FETIBC, FERR #### [facility] [address] [place] [address] Dr. Andrey Hargrove LEUKOCYTES SMALL Abnormal NEGATIVE [facility] Comment on above: Performed By: #### V ITAD, FETIBC, FERR #### [facility] [address] [place] [address] [address] Andrey Hargrove MUCOUS NONE SEEN Normal NONE SEEN [facility] Comment on above: Performed By: #### V ITAD, FETIBC, FERR #### [facility] [address] [place] [address] Dr. Andrey Hargrove Nitrite Ql (U) Negative Normal NEGATIVE [facility] Comment on above: Performed By: #### V ITAD, FETIBC, FERR #### [facility] [address] [place] [address] [address] Andrey Hargrove pH (U) 5.5 [pH] Normal 5-9 [facility] Comment on above: Performed By: #### V ITAD, FETIBC, FERR #### [facility] [address] [place] [address] Dr. Andrey Hargrove RBC 0-2 Normal 0-2 [facility] Comment on above: Performed By: #### V ITAD, FETIBC, FERR #### [facility] [address] [place] [address] Dr. Andrey Hargrove SPEC GRAVITY 1.010 Normal 1.005-<=1.02 5 [facility] Comment on above: Performed By: #### V ITAD, FETIBC, FERR #### [facility] [address] [place] [address] Dr. Andrey Hargrove UA PROTEIN TRACE Normal NEGATIVE/ TRACE [facility] Comment on above: Performed By: #### V ITAD, FETIBC, FERR #### [facility] [address] [place] [address] Dr. Andrey Hargrove Urobilinogen Qn (U) 0.2 {Kelly'U}/dL Normal 0.2 - 1. 0 [facility] Comment on above: Performed By: #### V ITAD, FETIBC, FERR #### [facility] [address] [place] [address] Dr. Andrey Hargrove WBC 0-2 Abnormal NONE SEEN [facility] Comment on above: Performed By: #### V ITAD, FETIBC, FERR #### [facility] [address] [place] [address] Dr. Andrey Hargrove URIC ACID SERUMon 05-23-2022 Urate [Mass/Vol] 7.4 mg/dL Critically high 2.6-6.0 [facility] Comment on above: Performed By: #### L IPID, TSH, FT3 #### [facility] [address] [place] [address] Dr. Andrey Hargrove URINE T PROTEIN CREAT RATIOo n 05-23-2022 Protein (U) [Mass/Vol] 39.9 mg/dL Critically high <=12.0 [facility] Comment on above: Performed By: #### U RTPCR #### [facility] [address] [address] [address] Andrey Hargrove UR PROT CREAT RAT 0.64 Normal [facility] Comment on above: Performed By: #### U RTPCR #### [facility] [address] [address] [address] Andrey Hargrove URINE CREAT 62.30 mg/dL Normal 20.00-300.00 [facility] Comment on above: Performed By: #### U RTPCR #### [facility] [address] [address] [address] Andrey Hargrove VITAMIN D 25 OHon 05-23-2022 VIT D 25-OH 90.7 ng/mL Normal [facility] Comment on above: Performed By: #### L IPID, TSH, FT3 #### [facility] [address] [place] [address] Dr. Andrey Hargrove VIT D RANGES SEE BELOW Normal [facility] Comment on above: Result Comment: <20 ng/mL Vit D deficient 20 - <30 ng/mL Vit D insufficient 30 - 100 ng/mL Vit D sufficient >100 ng/mL Potential Toxicity Performed By: #### L IPID, TSH, FT3 #### [facility] [address] [place] [address] Dr. Andrey Hargrove MAGNESIUMon 05-14-2022 Magnesium [Mass/Vol] 2.1 mg/dL Normal 1.8-2.4 [facility] Comment on above: Performed By: #### L IPID, TSH, FT3 #### [facility] [address] [place] [address] Dr. Andrey Hargrove PROF CHEM 8 (BAS METB)on Anion gap [Moles/Vol] 12.0 mmol/L Normal [facility] Comment on above: Performed By: #### L IPID, TSH, FT3 #### [facility] [address] [place] [address] Dr. Andrey Hargrove Calcium [Mass/Vol] 9.0 mg/dL Normal 8.5-10.1 [facility] Comment on above: Performed By: #### L IPID, TSH, FT3 #### [facility] [address] [address] [address] Andrey Hargrove Chloride [Moles/Vol] 97 mmol/L Critically low 98-107 [facility] Comment on above: Performed By: #### L IPID, TSH, FT3 #### [facility] [address] [place] [address] Dr. Andrey Hargrove CO2 [Moles/Vol] 30.4 mmol/L Normal 21.0-32.0 [facility] Comment on above: Performed By: #### L IPID, TSH, FT3 #### [facility] [address] [place] [address] Dr. Andrey Hargrove Creatinine [Mass/Vol] 2.28 mg/dL Critically high 0.55-1.02 [facility] Comment on above: Performed By: #### L IPID, TSH, FT3 #### [facility] [address] [place] [address] Dr. Andrey Hargrove EGFR-AF RWANDAN 26 mL/min/1.73m2 Critically low >=60 [facility] Comment on above: Performed By: #### L IPID, TSH, FT3 #### [facility] [address] [place] [address] Dr. Andrey Hargrove EGFR-NON AF RWANDAN 21 mL/min/1.73m2 Critically low >=60 [facility] Comment on above: Performed By: #### L IPID, TSH, FT3 #### [facility] [address] [place] [address] Dr. Andrey Hargrove Glucose [Mass/Vol] 190 mg/dL Critically high 74-106 [facility] Comment on above: Performed By: #### L IPID, TSH, FT3 #### [facility] [address] [place] [address] Dr. Andrey Hargrove Potassium [Moles/Vol] 3.4 mmol/L Critically low 3.5-5.1 [facility] Comment on above: Performed By: #### L IPID, TSH, FT3 #### [facility] [address] [address] [address] Andrey Hargrove Sodium [Moles/Vol] 136 mmol/L Normal 136-145 [facility] Comment on above: Performed By: #### L IPID, TSH, FT3 #### [facility] [address] [address] [address] Andrey Hargrove Urea nitrogen [Mass/Vol] 73.0 mg/dL Critically high 7.0-18 .0 [facility] Comment on above: Performed By: #### L IPID, TSH, FT3 #### [facility] [address] [address] [address] Andrey Hargrove Urea nitrogen/Creatinine [Mass ratio] 32.0 mg/mg Normal [facility] Comment on above: Performed By: #### L IPID, TSH, FT3 #### [facility] [address] [place] [address] Dr. Andrey Hargrove XR CHEST 2 Von [...] RENETTA RENEE Date: 2022-05-12 09:12 Normal [facility] BNPon 05-11-2022 Natriuretic peptide B (Bld) [Mass/Vol] 7074.0 pg/mL Critically high <=900.0 [facility] Comment on above: Performed By: #### V ITAD, FETIBC, FERR #### [facility] [address] [place] [address] Dr. Andrey Hargrove CBC AUTO DIFFon 05-11-2022 BASO # 0.1 103/ul Normal 0.0-0.1 [facility] Comment on above: Performed By: #### V ITAD, FETIBC, FERR #### [facility] [address] [place] [address] Dr. Andrey Hargrove Basophils/100 WBC (Bld) 0.7 % Normal 0.2-2.0 [facility] Comment on above: Performed By: #### V ITAD, FETIBC, FERR #### [facility] [address] [place] [address] Dr. Andrey Hargrove EO # 0.3 103/ul Normal 0.0-0.7 [facility] Comment on above: Performed By: #### V ITAD, FETIBC, FERR #### [facility] [address] [place] [address] Dr. Andrey Hargrove Eosinophils/100 WBC (Bld) 3.8 % Normal 0.9-7.0 [facility] Comment on above: Performed By: #### V ITAD, FETIBC, FERR #### [facility] [address] [place] [address] Dr. Andrey Hargrove Erythrocyte distribution width (RBC) [Ratio] 14.7 % Normal 11.0-15.0 [facility] Comment on above: Performed By: #### V ITAD, FETIBC, FERR #### [facility] [address] [place] [address] Dr. Andrey Hargrove Hematocrit (Bld) [Volume fraction] 29.6 % Critically low 36.0-48.0 [facility] Comment on above: Performed By: #### V ITAD, FETIBC, FERR #### [facility] [address] [place] [address] Dr. Andrey Hargrove Hemoglobin (Bld) [Mass/Vol] 9.9 g/dL Critically low 12.0-16.0 [facility] Comment on above: Performed By: #### V ITAD, FETIBC, FERR #### [facility] [address] [place] [address] Dr. Andrey Hargrove IG # 0.03 10e3/ul Normal 0.00-0.03 [facility] Comment on above: Performed By: #### V ITAD, FETIBC, FERR #### [facility] [address] [place] [address] Dr. Andrey Hargrove IG % 0.4 % Normal 0.0-0.5 [facility] Comment on above: Performed By: #### V ITAD, FETIBC, FERR #### [facility] [address] [place] [address] Dr. Andrey Hargrove LYMPH # 1.3 103/ul Normal 1.2-3.8 [facility] Comment on above: Performed By: #### V ITAD, FETIBC, FERR #### [facility] [address] [place] [address] Dr. Andrey Hargrove Lymphocytes/100 WBC (Bld) 16.3 % Critically low 20.5-60.0 [facility] Comment on above: Performed By: #### V ITAD, FETIBC, FERR #### [facility] [address] [place] [address] Dr. Andrey Hargrove MANUAL DIFF REQ NO Normal [facility] Comment on above: Performed By: #### V ITAD, FETIBC, FERR #### [facility] [address] [place] [address] Dr. Andrey Hargrove MCH (RBC) [Entitic mass] 28.7 pg Normal 26.7-34.0 [facility] Comment on above: Performed By: #### V ITAD, FETIBC, FERR #### [facility] [address] [place] [address] Dr. Andrey Hargrove MCHC (RBC) [Mass/Vol] 33.4 g/dL Normal 29.9-35.2 [facility] Comment on above: Performed By: #### V ITAD, FETIBC, FERR #### [facility] [address] [place] [address] Dr. Andrey Hargrove MCV (RBC) [Entitic vol] 85.8 fL Normal 81.0-99.0 [facility] Comment on above: Performed By: #### V ITAD, FETIBC, FERR #### [facility] [address] [place] [address] Dr. Andrey Hargrove MONO # 0.7 103/ul Normal 0.3-0.8 [facility] Comment on above: Performed By: #### V ITAD, FETIBC, FERR #### [facility] [address] [place] [address] Dr. Andrey Hargrove Monocytes/100 WBC (Bld) 8.7 % Normal 1.7-12.0 [facility] Comment on above: Performed By: #### V ITAD, FETIBC, FERR #### [facility] [address] [place] [address] Dr. Andrey Hargrove NEUT # 5.4 103/ul Normal 1.4-6.5 [facility] Comment on above: Performed By: #### V ITAD, FETIBC, FERR #### [facility] [address] [place] [address] Dr. Andrey Hargrove Neutrophils/100 WBC (Bld) 70.1 % Normal 43.0-75.0 [facility] Comment on above: Performed By: #### V ITAD, FETIBC, FERR #### [facility] [address] [place] [address] Dr. Andrey Hargrove Platelet mean volume (Bld) [Entitic vol] 10.9 fL Normal 9.5-13.5 [facility] Comment on above: Performed By: #### V ITAD, FETIBC, FERR #### [facility] [address] [place] [address] Dr. Andrey Hargrove PLT 171 103/ul Normal 150-450 [facility] Comment on above: Performed By: #### V ITAD, FETIBC, FERR #### [facility] [address] [place] [address] Dr. Andrey Hargrove RBC 3.45 106/ul Critically low 4.20-5.40 [facility] Comment on above: Performed By: #### V ITAD, FETIBC, FERR #### [facility] [address] [place] [address] Dr. Andrey Hargrove WBC 7.7 103/ul Normal 4.0-11.0 [facility] Comment on above: Performed By: #### V ITAD, FETIBC, FERR #### [facility] [address] [place] [address] Dr. Andrey Hargrove PROF CHEM 8 (BAS METB)on Anion gap [Moles/Vol] 9.8 mmol/L Normal [facility] Comment on above: Performed By: #### V ITAD, FETIBC, FERR #### [facility] [address] [place] [address] Dr. Andrey Hargrove Calcium [Mass/Vol] 9.1 mg/dL Normal 8.5-10.1 [facility] Comment on above: Performed By: #### V ITAD, FETIBC, FERR #### [facility] [address] [place] [address] Dr. Andrey Hargrove Chloride [Moles/Vol] 96 mmol/L Critically low 98-107 [facility] Comment on above: Performed By: #### V ITAD, FETIBC, FERR #### [facility] [address] [place] [address] Dr. Andrey Hargrove CO2 [Moles/Vol] 30.8 mmol/L Normal 21.0-32.0 [facility] Comment on above: Performed By: #### V ITAD, FETIBC, FERR #### [facility] [address] [place] [address] Dr. Andrey Hargrove Creatinine [Mass/Vol] 2.28 mg/dL Critically high 0.55-1.02 [facility] Comment on above: Performed By: #### V ITAD, FETIBC, FERR #### [facility] [address] [place] [address] Dr. Andrey Hargrove EGFR-AF RWANDAN 26 mL/min/1.73m2 Critically low >=60 [facility] Comment on above: Performed By: #### V ITAD, FETIBC, FERR #### [facility] [address] [place] [address] Dr. Andrey Hargrove EGFR-NON AF RWANDAN 21 mL/min/1.73m2 Critically low >=60 [facility] Comment on above: Performed By: #### V ITAD, FETIBC, FERR #### [facility] [address] [place] [address] Dr. Andrey Hargrove Glucose [Mass/Vol] 158 mg/dL Critically high 74-106 [facility] Comment on above: Performed By: #### V ITAD, FETIBC, FERR #### [facility] [address] [place] [address] Dr. Andrey Hargrove Potassium [Moles/Vol] 3.6 mmol/L Normal 3.5-5.1 [facility] Comment on above: Performed By: #### V ITAD, FETIBC, FERR #### [facility] [address] [place] [address] Dr. Andrey Hargrove Sodium [Moles/Vol] 133 mmol/L Critically low 136-145 [facility] Comment on above: Performed By: #### V ITAD, FETIBC, FERR #### [facility] [address] [place] [address] Dr. Andrey Hargrove Urea nitrogen [Mass/Vol] 66.0 mg/dL Critically high 7.0-18 .0 [facility] Comment on above: Performed By: #### V ITAD, FETIBC, FERR #### [facility] [address] [place] [address] Dr. Andrey Hargrove Urea nitrogen/Creatinine [Mass ratio] 28.9 mg/mg Normal [facility] Comment on above: Performed By: #### V ITAD, FETIBC, FERR #### [facility] [address] [place] [address] Dr. Andrey Hargrove MAGNESIUMon 03-17-2022 Magnesium [Mass/Vol] 1.9 mg/dL Normal 1.8-2.4 [facility] Comment on above: Performed By: #### V ITAD, FETIBC, FERR #### [facility] [address] [place] [address] Dr. Andrey Hargrove PROF CHEM 8 (BAS METB)on Anion gap [Moles/Vol] 11.7 mmol/L Normal [facility] Comment on above: Performed By: #### V ITAD, FETIBC, FERR #### [facility] [address] [place] [address] Dr. Andrey Hargrove Calcium [Mass/Vol] 9.4 mg/dL Normal 8.5-10.1 [facility] Comment on above: Performed By: #### V ITAD, FETIBC, FERR #### [facility] [address] [place] [address] Dr. Andrey Hargrove Chloride [Moles/Vol] 97 mmol/L Critically low 98-107 [facility] Comment on above: Performed By: #### V ITAD, FETIBC, FERR #### [facility] [address] [place] [address] Dr. Andrey Hargrove CO2 [Moles/Vol] 29.0 mmol/L Normal 21.0-32.0 [facility] Comment on above: Performed By: #### V ITAD, FETIBC, FERR #### [facility] [address] [place] [address] Dr. Andrey Hargrove Creatinine [Mass/Vol] 2.02 mg/dL Critically high 0.55-1.02 [facility] Comment on above: Performed By: #### V ITAD, FETIBC, FERR #### [facility] [address] [place] [address] Dr. Andrey Hargrove EGFR-AF RWANDAN 30 mL/min/1.73m2 Critically low >=60 [facility] Comment on above: Performed By: #### V ITAD, FETIBC, FERR #### [facility] [address] [place] [address] Dr. Andrey Hargrove EGFR-NON AF RWANDAN 24 mL/min/1.73m2 Critically low >=60 [facility] Comment on above: Performed By: #### V ITAD, FETIBC, FERR #### [facility] [address] [place] [address] Dr. Andrey Hargrove Glucose [Mass/Vol] 204 mg/dL Critically high 74-106 [facility] Comment on above: Performed By: #### V ITAD, FETIBC, FERR #### [facility] [address] [place] [address] Dr. Andrey Hargrove Potassium [Moles/Vol] 3.7 mmol/L Normal 3.5-5.1 [facility] Comment on above: Performed By: #### V ITAD, FETIBC, FERR #### [facility] [address] [place] [address] Dr. Andrey Hargrove Sodium [Moles/Vol] 134 mmol/L Critically low 136-145 [facility] Comment on above: Performed By: #### V ITAD, FETIBC, FERR #### [facility] [address] [place] [address] Dr. Andrey Hargrove Urea nitrogen [Mass/Vol] 60.0 mg/dL Critically high 7.0-18 .0 [facility] Comment on above: Performed By: #### V ITAD, FETIBC, FERR #### [facility] [address] [place] [address] Dr. Andrey Hargrove Urea nitrogen/Creatinine [Mass ratio] 29.7 mg/mg Normal [facility] Comment on above: Performed By: #### V ITAD, FETIBC, FERR #### [facility] [address] [place] [address] Dr. Andrey Hargrove PTH INTACTon 01-18-2022 PTH, Intact 51 pg/mL Normal 15-65 [facility] Comment on above: Performed By: #### L IPID, TSH, FT3 #### [facility] [address] [place] [address] Dr. Andrey Hargrove FERRITINon 01-17-2022 Ferritin [Mass/Vol] 133.0 ng/mL Normal 8.0-252.0 [facility] Comment on above: Performed By: #### V ITAD, FETIBC, FERR #### [facility] [address] [place] [address] Dr. Andrey Hargrove HEMOGRAM AND PLATELon 2021 Hematocrit (Bld) [Volume fraction] 31.7 % Critically low 36.0-48.0 [facility] Comment on above: Performed By: #### V ITAD, FETIBC, FERR #### [facility] [address] [place] [address] Dr. Andrey Hargrove Hemoglobin (Bld) [Mass/Vol] 10.2 g/dL Critically low 12.0-16.0 [facility] Comment on above: Performed By: #### V ITAD, FETIBC, FERR #### [facility] [address] [place] [address] Dr. Andrey Hargrove MCH (RBC) [Entitic mass] 28.3 pg Normal 26.7-34.0 [facility] Comment on above: Performed By: #### V ITAD, FETIBC, FERR #### [facility] [address] [place] [address] Dr. Andrey Hargrove MCHC (RBC) [Mass/Vol] 32.2 g/dL Normal 29.9-35.2 [facility] Comment on above: Performed By: #### V ITAD, FETIBC, FERR #### [facility] [address] [place] [address] Dr. Andrey Hargrove MCV (RBC) [Entitic vol] 88.1 fL Normal 81.0-99.0 [facility] Comment on above: Performed By: #### V ITAD, FETIBC, FERR #### [facility] [address] [place] [address] Dr. Andrey Hargrove PLT 198 103/ul Normal 150-450 [facility] Comment on above: Performed By: #### V ITAD, FETIBC, FERR #### [facility] [address] [place] [address] Dr. Andrey Hargrove RBC 3.60 106/ul Critically low 4.20-5.40 [facility] Comment on above: Performed By: #### V ITAD, FETIBC, FERR #### [facility] [address] [place] [address] Dr. Andrey Hargrove WBC 8.5 103/ul Normal 4.0-11.0 [facility] Comment on above: Performed By: #### V ITAD, FETIBC, FERR #### [facility] [address] [place] [address] Dr. Andrey Hargrove IRON AND TIBCon 01-17-2022 % SATURATION 17.8 % Normal [facility] Comment on above: Performed By: #### V ITAD, FETIBC, FERR #### [facility] [address] [place] [address] Dr. Andrey Hargrove Iron [Mass/Vol] 47.0 ug/dL Critically low 50.0-170.0 [facility] Comment on above: Performed By: #### V ITAD, FETIBC, FERR #### [facility] [address] [place] [address] Dr. Andrey Hargrove TIBC DIRECT 264.0 ug/dL Normal 250.0-450.0 [facility] Comment on above: Performed By: #### V ITAD, FETIBC, FERR #### [facility] [address] [place] [address] Dr. Andrey Hargrove MAGNESIUMon 01-17-2022 Magnesium [Mass/Vol] 2.0 mg/dL Normal 1.8-2.4 [facility] Comment on above: Performed By: #### V ITAD, FETIBC, FERR #### [facility] [address] [place] [address] Dr. Andrey Hargrove RENAL FUNCTION PANELon 01-17 Albumin [Mass/Vol] 3.3 g/dL Critically low 3.4-5.0 [facility] Comment on above: Performed By: #### V ITAD, FETIBC, FERR #### [facility] [address] [address] [address] Andrey Hargrove Calcium [Mass/Vol] 9.1 mg/dL Normal 8.5-10.1 [facility] Comment on above: Performed By: #### V ITAD, FETIBC, FERR #### [facility] [address] [place] [address] Dr. Andrey Hargrove Chloride [Moles/Vol] 104 mmol/L Normal 98-107 [facility] Comment on above: Performed By: #### V ITAD, FETIBC, FERR #### [facility] [address] [place], [place] [id number] Dr. Andrey Hargrove CO2 [Moles/Vol] 27.6 mmol/L Normal 21.0-32.0 [facility] Comment on above: Performed By: #### V ITAD, FETIBC, FERR #### [facility] [address] [place] [address] Dr. Andrey Hargrove Creatinine [Mass/Vol] 1.71 mg/dL Critically high 0.55-1.02 [facility] Comment on above: Performed By: #### V ITAD, FETIBC, FERR #### [facility] [address] [place] [address] Dr. Andrey Hargrove EGFR-AF RWANDAN 36 mL/min/1.73m2 Critically low >=60 [facility] Comment on above: Performed By: #### V ITAD, FETIBC, FERR #### [facility] [address] [place] [address] Dr. Andrey Hargrove EGFR-NON AF RWANDAN 30 mL/min/1.73m2 Critically low >=60 [facility] Comment on above: Performed By: #### V ITAD, FETIBC, FERR #### [facility] [address] [place] [address] Dr. Andrey Hargrove Glucose [Mass/Vol] 115 mg/dL Critically high 74-106 [facility] Comment on above: Performed By: #### V ITAD, FETIBC, FERR #### [facility] [address] [place] [address] Dr. Andrey Hargrove Phosphate [Mass/Vol] 4.3 mg/dL Normal 2.6-4.7 [facility] Comment on above: Performed By: #### V ITAD, FETIBC, FERR #### [facility] [address] [place] [address] Dr. Andrey Hargrove Potassium [Moles/Vol] 3.9 mmol/L Normal 3.5-5.1 [facility] Comment on above: Performed By: #### V ITAD, FETIBC, FERR #### [facility] [address] [place] [address] Dr. Andrey Hargrove Sodium [Moles/Vol] 139 mmol/L Normal 136-145 [facility] Comment on above: Performed By: #### V ITAD, FETIBC, FERR #### [facility] [address] [place] [address] Dr. Andrey Hargrove Urea nitrogen [Mass/Vol] 38.0 mg/dL Critically high 7.0-18 .0 [facility] Comment on above: Performed By: #### V ITAD, FETIBC, FERR #### [facility] [address] [place] [address] Dr. Andrey Hargrove UA RANDOM W/MICROSCOPICon BACTERIA NONE SEEN Normal NONE SEEN [facility] Comment on above: Performed By: #### L IPID, TSH, FT3 #### [facility] [address] [place] [address] Dr. Andrey Hargrove Bilirubin Ql (U) Negative Normal NEGATIVE [facility] Comment on above: Performed By: #### L IPID, TSH, FT3 #### [facility] [address] [place] [address] Dr. Andrey Hargrove CAST SEEN Abnormal NONE SEEN [facility] Comment on above: Performed By: #### L IPID, TSH, FT3 #### [facility] [address] [place] [address] Dr. Andrey Hargrove Clarity (U) CLEAR Normal CLEAR [facility] Comment on above: Performed By: #### L IPID, TSH, FT3 #### [facility] [address] [place] [address] Dr. Andrey Hargrove Color (U) LT. YELLOW Normal YELLOW [facility] Comment on above: Performed By: #### L IPID, TSH, FT3 #### [facility] [address] [place] [address] Dr. Andrey Hargrove Crystals LM Nom (Urine sed) NONE SEEN Normal NONE SEEN [facility] Comment on above: Performed By: #### L IPID, TSH, FT3 #### [facility] [address] [place] [address] Dr. Andrey Hargrove Epithelial cells LM Ql (Urine sed) FEW Abnormal NONE SEEN /RARE [facility] Comment on above: Performed By: #### L IPID, TSH, FT3 #### [facility] [address] [address] [address] Andrey Hargrove Glucose Ql (U) Negative Normal NEGATIVE [facility] Comment on above: Performed By: #### L IPID, TSH, FT3 #### [facility] [address] [address] [address] Andrey Hargrove Hemoglobin Ql (U) Negative Normal NEGATIVE [facility] Comment on above: Performed By: #### L IPID, TSH, FT3 #### [facility] [address] [address] [address] Andrey Hargrove HYALINE CAST RARE Normal [facility] Comment on above: Performed By: #### L IPID, TSH, FT3 #### [facility] [address] [place] [address] Dr. Andrey Hargrove Ketones Ql (U) Negative Normal NEGATIVE [facility] Comment on above: Performed By: #### L IPID, TSH, FT3 #### [facility] [address] [place] [address] Dr. Andrey Hargrove LEUKOCYTES TRACE Abnormal NEGATIVE [facility] Comment on above: Performed By: #### L IPID, TSH, FT3 #### [facility] [address] [address] [address] Andrey Hargrove MUCOUS NONE SEEN Normal NONE SEEN [facility] Comment on above: Performed By: #### L IPID, TSH, FT3 #### [facility] [address] [place] [address] Dr. Andrey Hargrove Nitrite Ql (U) Negative Normal NEGATIVE [facility] Comment on above: Performed By: #### L IPID, TSH, FT3 #### [facility] [address] [place] [address] Dr. Andrey Hargrove pH (U) 5.0 [pH] Normal 5-9 [facility] Comment on above: Performed By: #### L IPID, TSH, FT3 #### [facility] [address] [place] [address] Dr. Andrey Hargrove RBC 0-2 Normal 0-2 [facility] Comment on above: Performed By: #### L IPID, TSH, FT3 #### [facility] [address] [place] [address] Dr. Andrey Hargrove SPEC GRAVITY 1.020 Normal 1.005-<=1.02 5 [facility] Comment on above: Performed By: #### L IPID, TSH, FT3 #### [facility] [address] [place] [address] Dr. Andrey Hargrove UA PROTEIN Negative Normal NEGATIVE/ TRACE [facility] Comment on above: Performed By: #### L IPID, TSH, FT3 #### [facility] [address] [place] [address] Dr. Andrey Hargrove Urobilinogen Qn (U) 0.2 {Kelly'U}/dL Normal 0.2 - 1. 0 [facility] Comment on above: Performed By: #### L IPID, TSH, FT3 #### [facility] [address] [place] [address] Dr. Andrey Hargrove WBC 2-5 Abnormal NONE SEEN [facility] Comment on above: Performed By: #### L IPID, TSH, FT3 #### [facility] [address] [place] [address] Dr. Andrey Hargrove URIC ACID SERUMon 01-17-2022 Urate [Mass/Vol] 5.4 mg/dL Normal 2.6-6.0 The [facility] Comment on above: Performed By: #### V ITAD, FETIBC, FERR #### [facility] [address] [place] [address] Dr. Andrey Hargrove URINE T PROTEIN CREAT RATIOo n 01-17-2022 Protein (U) [Mass/Vol] 15.3 mg/dL Critically high <=12.0 [facility] Comment on above: Performed By: #### V ITAD, FETIBC, FERR #### [facility] [address] [place] [address] Dr. Andrey Hargrove UR PROT CREAT RAT 0.36 Normal [facility] Comment on above: Performed By: #### V ITAD, FETIBC, FERR #### [facility] [address] [place] [address] Dr. Andrey Hargrove URINE CREAT 42.16 mg/dL Normal 20.00-300.00 [facility] Comment on above: Performed By: #### V ITAD, FETIBC, FERR #### [facility] [address] [place] [address] Dr. Andrey Hargrove VITAMIN D 25 OHon 01-17-2022 VIT D 25-OH 73.8 ng/mL Normal [facility] Comment on above: Performed By: #### V ITAD, FETIBC, FERR #### [facility] [address] [place] [address] Dr. Andrey Hargrove VIT D RANGES SEE BELOW Normal [facility] Comment on above: Result Comment: <20 ng/mL Vit D deficient 20 - <30 ng/mL Vit D insufficient 30 - 100 ng/mL Vit D sufficient >100 ng/mL Potential Toxicity Performed By: #### V ITAD, FETIBC, FERR #### [facility] [address] [place] [address] Dr. Andrey Hargrove PROF CHEM 8 (BAS METB)on Anion gap [Moles/Vol] 13.3 mmol/L Normal [facility] Comment on above: Performed By: #### V ITAD, FETIBC, FERR #### [facility] [address] [place] [address] Dr. Andrey Hargrove Calcium [Mass/Vol] 9.5 mg/dL Normal 8.5-10.1 [facility] Comment on above: Performed By: #### V ITAD, FETIBC, FERR #### [facility] [address] [place] [address] Dr. Andrey Hargrove Chloride [Moles/Vol] 98 mmol/L Normal 98-107 [facility] Comment on above: Performed By: #### V ITAD, FETIBC, FERR #### [facility] [address] [place] [address] Dr. Andrey Hargrove CO2 [Moles/Vol] 25.7 mmol/L Normal 21.0-32.0 [facility] Comment on above: Performed By: #### V ITAD, FETIBC, FERR #### [facility] [address] [place] [address] [address] Andrey Hargrove Creatinine [Mass/Vol] 2.92 mg/dL Critically high 0.55-1.02 [facility] Comment on above: Performed By: #### V ITAD, FETIBC, FERR #### [facility] [address] [place] [address] Dr. Andrey Hargrove EGFR-AF RWANDAN 19 mL/min/1.73m2 Critically low >=60 [facility] Comment on above: Performed By: #### V ITAD, FETIBC, FERR #### [facility] [address] [place] [address] Dr. Andrey Hargrove EGFR-NON AF RWANDAN 16 mL/min/1.73m2 Critically low >=60 [facility] Comment on above: Performed By: #### V ITAD, FETIBC, FERR #### [facility] [address] [place] [address] Dr. Andrey Hargrove Glucose [Mass/Vol] 156 mg/dL Critically high 74-106 [facility] Comment on above: Performed By: #### V ITAD, FETIBC, FERR #### [facility] [address] [place] [address] Dr. Andrey Hargrove Potassium [Moles/Vol] 5.0 mmol/L Normal 3.5-5.1 [facility] Comment on above: Performed By: #### V ITAD, FETIBC, FERR #### [facility] [address] [place] [address] Dr. Andrey Hargrove Sodium [Moles/Vol] 132 mmol/L Critically low 136-145 [facility] Comment on above: Performed By: #### V ITAD, FETIBC, FERR #### [facility] [address] [place] [address] Dr. Andrey Hargrove Urea nitrogen [Mass/Vol] 77.0 mg/dL Critically high 7.0-18 .0 [facility] Comment on above: Result Comment: CALL ED TO FRANCIS JUNG RMA Performed By: #### V ITAD, FETIBC, FERR #### [facility] [address] [place], [place] [address] Dr. Andrey Hargrove Urea nitrogen/Creatinine [Mass ratio] 26.4 mg/mg Normal [facility] Comment on above: Performed By: #### V ITAD, FETIBC, FERR #### [facility] [address] [place], [place] [address] Dr. Andrey Hargrove Cardiovascular Lab Reporton 12-10-2021 Cardiovascular Lab Report [facility] Patient Name: [facility] MR #: [id number] Physician: Karthik Calvo of [facility] Service Date: 12/09/2021 Division of Birthdate: 1950 Cardiology Room #: [facility] [place] [address] Cardiovascular Laboratory Report INDICATION: The patient is [...] signed informed consent. 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 The right neck area was prepped and draped in usual fashion. Micropuncture technique and ultrasound guidance were used for access in the right internal jugular vein. A 5-Ecuadorean x 11 cm sheath was placed. A 5-Ecuadorean Dumont catheter was used for right heart [...] Fish M.D. Date Trans: 12/09/2021 11:37 P/joey [id number] cc: John Perdomo D.O. [address] [place] [address] Normal [facility] CBC COMPLETE BLOOD COUNTon 0 12-09-2021 Erythrocyte distribution width (RBC) [Ratio] 13.6 % Normal 11.5-15.0 [facility] Comment on above: Performed By: #### 5 0608 #### [facility] [address] [place] [address], [facility] Hematocrit (Bld) [Volume fraction] 35.6 % Low 36.0-45.0 [facility] Comment on above: Performed By: #### 5 0608 #### [facility] [address] Hemoglobin (Bld) [Mass/Vol] 11.8 g/dL Low 12.0-15.0 [facility] Comment on above: Performed By: #### 5 0608 #### [facility] [address] [facility] [place] [address], [facility] MCH (RBC) [Entitic mass] 28.6 pg Normal 27.0-33.0 [facility] Comment on above: Performed By: #### 5 0608 #### [facility] [address] [place] [address], [facility] MCHC (RBC) [Mass/Vol] 33.1 g/dL Normal 32.0-35.0 [facility] Comment on above: Performed By: #### 5 0608 #### [facility] [address] [place] [address], [facility] MCV (RBC) [Entitic vol] 86.2 fL Normal 82.0-98.0 [facility] Comment on above: Performed By: #### 5 0608 #### [facility] [address] Nucleated RBC/100 WBC (Bld) [Ratio] 0 % Normal 0-0 [facility] Comment on above: Performed By: #### 5 0608 #### [facility] [address] [facility] [place] [address], [facility] PLAT CNT 240 10*3/uL Normal 150-400 [facility] Comment on above: Performed By: #### 5 0608 #### [facility] [address] [place] [address], [facility] RBC (Bld) [#/Vol] 4.13 10*6/uL Normal 3.80-5.00 [facility] Comment on above: Performed By: #### 5 0608 #### [facility] [address] WBC (Bld) [#/Vol] 14.13 10*3/uL High 4.00-10.60 [facility] Comment on above: Performed By: #### 5 0608 #### [facility] [address] [place] [address], [facility] Covid-19 PCR (CVDTB)on SARS-CoV-2 (COVID-19) RNA JAYASHREE+probe Ql (Unsp spec) Not detected Normal NOT DETECTED [facility] Comment on above: Result Comment: This test is not yet approved or cleared by the [place] FDA. When there are no FDA-approved or cleared tests available, and other criteria are met, FDA can make tests available under an emergency access mechanism called an Emergency Use Authorization (EUA). The EUA for this test is supported by the Supply Officer of Health and Human Service's (HHS's) declaration [...] By: #### V ITAD, FETIBC, FERR #### [facility] [address] [place] [address] Dr. Andrey Hargrove ECHOCARDIO M/2D COMPLETEon 0 12-06-2021 ECHOCARDIO M/2D COMPLETE Patient: CLAUDIA ESTRELLA Exam Date: 12/06/2021 : 1950 Gender:F Ordering : KWAN ROSALES Admission #: [id number] Family : DR JOHN PERDOMO D.O. Order #: [id number] CLICK HERE TO VIEW EXAM ECHOCARDIOGRAM REPORT [...] Area(A4C): 14.80 cm2 Left Atrium Systolic Volume(A2C): 74553 mm3 Left Atrium Systolic Volume(A4C): 56909 mm3 Mitral Valve MV E to A [...] Fish M.D. on 12/06/2021 at 17:31 Normal [facility] BNPon 12-01-2021 Natriuretic peptide B (Bld) [Mass/Vol] 5127.0 pg/mL Critically high <=900.0 [facility] Comment on above: Performed By: #### V ITAD, FETIBC, FERR #### [facility] [address] [place] [address] Dr. Andrey Hargrove PROF CHEM 8 (BAS METB)on Anion gap [Moles/Vol] 13.9 mmol/L Normal [facility] Comment on above: Performed By: #### V ITAD, FETIBC, FERR #### [facility] [address] [place] [address] Dr. Andrey Hargrove Calcium [Mass/Vol] 9.4 mg/dL Normal 8.5-10.1 [facility] Comment on above: Performed By: #### V ITAD, FETIBC, FERR #### [facility] [address] [place] [address] Dr. Andrey Hargrove Chloride [Moles/Vol] 99 mmol/L Normal 98-107 [facility] Comment on above: Performed By: #### V ITAD, FETIBC, FERR #### [facility] [address] [place] [address] [address] Andrey Hargrove CO2 [Moles/Vol] 28.4 mmol/L Normal 21.0-32.0 [facility] Comment on above: Performed By: #### V ITAD, FETIBC, FERR #### [facility] [address] [place] [address] [address] Andrey Hargrove Creatinine [Mass/Vol] 2.11 mg/dL Critically high 0.55-1.02 [facility] Comment on above: Performed By: #### V ITAD, FETIBC, FERR #### [facility] [address] [place] [address] [address] Andrey Hargrove EGFR-AF RWANDAN 28 mL/min/1.73m2 Critically low >=60 [facility] Comment on above: Performed By: #### V ITAD, FETIBC, FERR #### [facility] [address] [place] [address] [address] Andrey Hargrove EGFR-NON AF RWANDAN 23 mL/min/1.73m2 Critically low >=60 [facility] Comment on above: Performed By: #### V ITAD, FETIBC, FERR #### [facility] [address] [place] [address] [address] Andrey Hargrove Glucose [Mass/Vol] 179 mg/dL Critically high 74-106 [facility] Comment on above: Performed By: #### V ITAD, FETIBC, FERR #### [facility] [address] [place] [address] [address] Andrey Hargrove Potassium [Moles/Vol] 4.3 mmol/L Normal 3.5-5.1 [facility] Comment on above: Performed By: #### V ITAD, FETIBC, FERR #### [facility] [address] [address] [address] Andrey Hargrove Sodium [Moles/Vol] 137 mmol/L Normal 136-145 [facility] Comment on above: Performed By: #### V ITAD, FETIBC, FERR #### [facility] [address] [place] [address] Dr. Andrey Hargrove Urea nitrogen [Mass/Vol] 62.0 mg/dL Critically high 7.0-18 .0 [facility] Comment on above: Performed By: #### V ITAD, FETIBC, FERR #### [facility] [address] [place] [address] Dr. Andrey Hargrove Urea nitrogen/Creatinine [Mass ratio] 29.4 mg/mg Normal [facility] Comment on above: Performed By: #### V ITAD, FETIBC, FERR #### [facility] [address] [place] [address] Dr. Andrey Hargrove BNPon 11-19-2021 Natriuretic peptide B (Bld) [Mass/Vol] 4773.0 pg/mL Critically high <=900.0 [facility] Comment on above: Performed By: #### V ITAD, FETIBC, FERR #### [facility] [address] [place] [address] Dr. Andrey Hargrove PROF CHEM 8 (BAS METB)on Anion gap [Moles/Vol] 11.3 mmol/L Normal [facility] Comment on above: Performed By: #### V ITAD, FETIBC, FERR #### [facility] [address] [place] [address] Dr. Andrey Hargrove Calcium [Mass/Vol] 8.9 mg/dL Normal 8.5-10.1 [facility] Comment on above: Performed By: #### V ITAD, FETIBC, FERR #### [facility] [address] [place] [address] Dr. Andrey Hargrove Chloride [Moles/Vol] 100 mmol/L Normal 98-107 [facility] Comment on above: Performed By: #### V ITAD, FETIBC, FERR #### [facility] [address] [place] [address] Dr. Andrey Hargrove CO2 [Moles/Vol] 30.9 mmol/L Normal 21.0-32.0 [facility] Comment on above: Performed By: #### V ITAD, FETIBC, FERR #### [facility] [address] [place] [address] Dr. Andrey Hargrove Creatinine [Mass/Vol] 2.01 mg/dL Critically high 0.55-1.02 [facility] Comment on above: Performed By: #### V ITAD, FETIBC, FERR #### [facility] [address] [place] [address] Dr. Andrey Hargrove EGFR-AF RWANDAN 30 mL/min/1.73m2 Critically low >=60 [facility] Comment on above: Performed By: #### V ITAD, FETIBC, FERR #### [facility] [address] [place] [address] Dr. Andrey Hargrove EGFR-NON AF RWANDAN 24 mL/min/1.73m2 Critically low >=60 [facility] Comment on above: Performed By: #### V ITAD, FETIBC, FERR #### [facility] [address] [place] [address] Dr. Andrey Hargrove Glucose [Mass/Vol] 81 mg/dL Normal 74-106 [facility] Comment on above: Performed By: #### V ITAD, FETIBC, FERR #### [facility] [address] [place] [address] Dr. Andrey Hargrove Potassium [Moles/Vol] 3.2 mmol/L Critically low 3.5-5.1 [facility] Comment on above: Performed By: #### V ITAD, FETIBC, FERR #### [facility] [address] [place] [address] Dr. Andrey Hargrove Sodium [Moles/Vol] 139 mmol/L Normal 136-145 [facility] Comment on above: Performed By: #### V ITAD, FETIBC, FERR #### [facility] [address] [place] [address] Dr. Andrey Hargrove Urea nitrogen [Mass/Vol] 51.0 mg/dL Critically high 7.0-18 .0 [facility] Comment on above: Performed By: #### V ITAD, FETIBC, FERR #### [facility] [address] [place], [place] [address] Dr. Andrey Hargrove Urea nitrogen/Creatinine [Mass ratio] 25.4 mg/mg Normal [facility] Comment on above: Performed By: #### V ITAD, FETIBC, FERR #### [facility] [address] [place], [place] [address] Dr. Andrey Hargrove COVID-19 Antigenon 2 COVID-19 [...] its performance Kenny Disclaimer characteristic determined by [facility] and Kenny Disclaimer validated at [facility]. This Kenny Disclaimer test has [...] is terminated or revoked sooner. PERFORMED BY: [place] [address] PATHOLOGIST DELINQUENT TAX COLLECTOR JAMAL ALLEN M.D. Normal [facility] Comment on above: Performed By: #### S OFIAPOS, COVID-19 KENNY #### [facility] [address] [place] [address] Kenny Ag Positiveon 07-31-19 Kenny Ag Positive Positive Critically abnormal Negative [facility] Comment on above: Result Comment: This is a duplicate Kenny SARS Antigen (JOSE RAMON) result to be used for statistical tracking purpose only. PERFORMED BY: [place] [address] PATHOLOGIST DELINQUENT TAX COLLECTOR JAMAL ALLEN M.D. Performed By: #### S OFIAPOS, COVID-19 KENNY #### [facility] [address] [place] [address] Coding Summary.on 12-22-2020 Coding Summary. [id number] Gh0bWw+PGhlYWQ+PE1FV OHxY84nmWYtuF3NA0jTG L0ZBNFAWIKKKS2HOA8qd SO1UYtuT6IjjfQk YdyjdILwBY55MSp6BJU7 dOvnDPgieE2hiMGoW1z8 GtYsNJ87nK31OMxlUQOi AmY4LgWfmlvyiARs Z8laQcIhgBCiYmt+PHRh YmxlIHdpZHRoPScxMDAl SzKhkWjhTO5rYp5mTTVo LWNvbGxhcHNlOiBj q2toPRTwQYbkJZ3qsZdu D5WzpQE6QVMgi2w9Ck07 dHI+WLRdMHW1cAdaSDvx y947UoQze3crRVA3 nQNzXIfsFTV2X88ou7H1 QADqLVTgLTO0jTV5cE5o hCmlcyphN2SpxCQyVfI1 WBF8aIKssK1bbFsb klnvuO8bVsq+W54MAI2L KGPCOG7QHcx7M3WaTuxc dHI+VH64KUDePP66rDYn iMEiz9zwuCv3XuPc QLUuNEE9qHrqRIpbq0Cf HRNkZ81lxVOqn0E8JCZa cClbwSUcGiQbcWO6fJ7t OSsyilgan6jprzdn Rxyph1yzzc93sV70L95d YBezVXOcHEF0EBBzMMNp hTrera5auV2aIl6+IDxj u0rrz0mihUv8ZbXo TUJljnVkaIfjZGX8q9Hc Ik30J3OglDuhy7VzEjj0 vx26jYKhj1Q0gIP3BYll QQIjgY4dLVbcJzC7 WOZrLdJlgF64gUJsHSyu Tw3esAgckUpbSG8bANZn taomILPdkN5pOLJqeWQr cBhuIA2fBUTnfcli t223NjUhEDC8LNRqrKZv H5HhjX6nYyChRTVqXPRe C9HazUEdPNajZ460BQpq AwR8TIUwsiMaP0Zt ZBTqpIroQjW9x3Q6Kj5O k0MogqptKJU8MKnhBZL1 XcZeLqEeEbI1E3GbQmf5 BWEfvGnzQD8oH3Bi WJJzuqstvfvwdQA0CXEf DNYuuL33qUTqHLcqUu0y s0T3z523CQVeLSJirG40 Cj4huVsjNZBkaQRG dX5nxusle5oxdtroHwAo RPWiUIq3OQj4HJRrlIni QnMqZKK9AkR5EPM7bLPv nJ1sxWpquzuriW6h Oyc+Y91naY2wQKL0SKK4 mwwiFVHenzVmTX47IA79 N7NeOqcjtINhaUQ+PGRp tcWasPrzPL4dBnLz z3xjy6TkABkoJ1IrXMNg RDavPru7OOXlWJA4iDD8 vZ2iUNVsJCgoz6E5xQC0 Z8EvoiLaay2tx2fq RUBvUTkrS40ygEBoo0A8 XPZqvQB6TDYvtZztYsLf vS70Fzz+EATyuPspw6Wi Bxene8ijf9agiRo5 IjMwJSIgdmFsaWduPSJ0 x9QwAv37O39eHAppIZFt FWGvMEXsKMFdvOpphq5e bY3kRt6+PGNvbCB3 sQM5hJ8cZPCgZwO2RKlu R362LnDtbIPaBzdgr2iz p0cyrMn2ScRtKYTxekZz iZtwTYY0y4CfJm35 U77oSPfeVRShTATwGHDb OGLyoJkqdr7wuH0jKy0+ WW5oy0shsa87wM63dFC+ IAFpULB8hOgvDHql QFDgkW5kZVowIdO5VXVt UpVbxS50hJNdVPisAx4y jWzrlVxkAV9xHETzcdtm h018JiQsj0qbDLPa uBNnBWjcBCK1M38qz2J5 KBUtDNLnCNV1xSZ7aN2m bGlnbjogbGVmdDsgdmVy xWbhRBztACjcX633 IHRvcDsnPlBhdGllbnQg BxPpYYp1G3ZlOrj1QJPp eOtnEX2itXRuPEwlIb4n sRgwmIziKR4tAGJt qysky756GiCzl8hyJKUs lSEmQRgwPJF5B29xp7K5 OFGrRNMsEGK0oPY3vW0r bGlnbjogbGVmdDsg whCzrRegCBezGDshQ360 IHRvcDsnPkJpcnRoIERh hVQ6HK75XX49tUQna3A8 rJO9M2EzCQKlxbpl fvqvqIA8UJGpCSDgwS55 Lk2iwLxmHq3cNGBiVZF6 DXGyaGHtP6UnkK1pCySe MNTuZGMrU4ByzJIy NZifL402RZjeMeT5TEOy bqGoI4HdXTUydUvqSmY2 f2G7Gd0LG5Q7WH96HX67 xMJgw1J0dHE7W9Mq QELljwwzjalkgYE9NRRl SIHpyL48Ib1ikObmYh3y UHPxHVB2DXJxoAIlY8Py hI9vSsDlAMUtXKGb G9NqbCKuXRssS243BWnp RfS7ALQfgoSxF7BbWETj kBkpKuU1l1W5Yb9YMFg5 NS32QC67jBRzw8M2 rAA5L7LrXDTproiydsgb wFZ1ZHNiMKIhgQ81Fu9l gIieDd7fQJEmGRW6XGWs hSKmU3BpwM2jEsQf HGUyBIYtY2PybSTkPQew J799JZbrMwW2GNNazqPo U0IcSEIumUcsDpV9y8M6 Oh3ASRIlOL64GBN7 xDA9FY44IQ29B4SlRxja dGFibGU+PHRhYmxlIHdp ZHRoPScxMDAlJyBzdHls YI8sMn1tBXLjLONp oAzneVSpOvOzb1ipAPEw BIvnPN8lyQirS6MbbBE2 ALPam9l9Oe37H94cM6Dx dXA+CYDlxAN3oIN3 fI9dLnRtIdG1BZofH030 OpPsfEJrHuews6jvo6tv xFl7OzD7KRGehzVdgDdb OEF7i3VtIf20L21t IHdpZHRoPSIxNSUiIHZh yYscsh4vkJ1cLh8+PGNv fGD3oLB2zH2zPaTiSyQ6 BCnxL146CySpmMUx Bxkke9jpc3umpRy1DpZh MHAryaKbySicGCP5v8Sa Yf87H2RboYhxw9LwUvh8 xi41vTMtz5E0cIZ2 G3EnUTXbhlgjqHGliLmi WX4lYXEntuwmZFDmoD0g ISWqR9r2RgFvCoW1HJxv R9WvinR9BUSksFBa FGaxQOZ8Z98lo2K4SSAm ZSUjXIL0sKY5yX1psGta bjogbGVmdDsgdmVydGlj CCskMBuwL002IIKa tMpqBUQqnA9kQMThgZIb zXffWB9sMBYykxljJe2N G5CRMnjaG0cVCd0NXVH7 X8XxLek6UMSofXxo LG7dlHGhAVnzJc8xzDsb gKnuOQ4oRSFvdgfdBKKf uE3hLATgaONdrYjpOI7g NZPruggcq100BkIp JMH9IODroQFsO8RhdY2v KbFoISNhFMBxC2AygTWn PSpkV101YPsrFcM2RKEx xtDtV9MbQNWeyStl ZxV4i3I8Us0oZF2cQm9h OQGkSJ15XB80uUVrp3G1 xJK7E3UgEXZyiogicirr mFN5IDFzNRQmhF18 zOLxIAkqFq0pi8R3e443 BXDvOKQesO09Uw0rtQai RABeeTEIgT6njmmqt3co cjogIzAwMDAwMDt0 HXw0XXFoaCinUuZdEOL3 WxY6KBR4dPLciO3dhPzu jmzaiC9wHyc+NjkgWWVh gpA9U5PeKzf9HRVp dSwaNC2vdVRhHEozNy3i nHyxyCmcGX4kEFRllnol TJQlwK9gGGOdjBGloLbh II1wEZRukzvoy221 JhApUGT8OFLikDSoN2Tx uE0eUtDzXFJiSHUpH1Jv aWQfMQbrJ481HQdzWzX4 OAMyjwJrQ0JcSMEb aHjrTdL0j0B0Yz2WDD7l eLM5F4HbEjt2AEQhjQhz UO3lhSAvEPazGs5xbBic iKesHO2lKGOrjkxd KNPreU2lCWXdnYEpgDiw ZN3mWPExespew969LcDt QCM4QSUqgPPzM7ModH6i NuZtUVFeOMIaU5Ri qPEwKNpvC645YXlgImK1 EUYezoHjZ2SoOHNjiVlf PhW6f8K5Ju2KPOSbTKXf iCRuZlE6A3DuRkuy dHI+SE77PCRxIM41lOHh fBVpz4vmgYo9AvWnIWEl TYA7bJrcSQmre0MsVLHb R75ggZDlf2M9BFBz lJkcnUPoRoFvlNK5rX1r PYvmrmant5qsrbqsDtab l4uojz84sS84R85kDWxz ZHRoPSIzMCUiIHZh bUrkmt3oqO3uSh1+PGNv aNN4lJB6hD3hYkUgSlH1 UPmcU286FtEilTFmDanj d0nsi6ftqCh5CkSf DHVgmdTmwZirINT1j4Yp Jx61J46oXLyyABEkJMCp TQHbEJCdyDjhrx3gwD0j Ii8+RP3db6vlla65 mM25iGY+MESgLZI4dBue IUtoYRSjcL8zEWucBbM8 JRIjArIuoV97vKEwPIgc Gv0ofQbiuNprYD1c RSVnwsdfh682VkDjc5ks KGXwqTTeCCtuPRT6O21w z2Z0RWTiBAQqQYL9nUD1 vH2bpIwfmbsfmNZr dDsgdmVydGljYWwtYWxp N442PJRydOmdUjYoqQJw R2kmnnBHPU4rHlbarZP+ UCDwZNB5dOemVMlm KFIrmU3kKOMjK4z7ToLi HhF1TCwwP2ConiH1JKGg yAKiHBIryHPUgA5mmhzv x5yeluyyArMuXYOy VJq7YGm2NBCkpUsuMjHs GMP7JaS4SWW7dXInjX0l lUlpdywedJ6cVfz+RklO OjwvdGQ+PHRkIHN0 oYeuDFyiYWJjhD4cCXUs H2m2GiVoCjS9OBxkI4Ti edW1AFDkdYNyXQPfnXVR nE4zagsjk3fnyuvy TeYgUEIcEJu4RPm9HWMi gMonNgJxRET4ThE5NEL1 sMPdhQ2koVjuracjuL0t Oyc+TVJOOjwvdGQ+ GZYnREV6cSceRGyeXYRw jO3jETDlR8k1ObDmKpM6 VLtvQ0LsilU7QPIaiVCb MOCetCJTpL9mufdg x2nkgmxbWuRwQCGpGRe9 SPc0VDEmvNldPaGnCAM5 HyA8HWY6pJKuxM9dnTme uuwsaK5sJmh+UGF5 VBS3MC11QD05A0AwQfsm dGFibGU+PHRhYmxlIHdp ZHRoPScxMDAlJyBzdHls MI6cOh7vZYEjHTTw bGxh (more content not included)... Normal [facility] Consent for Procedure/Surger yon 12-16-2020 Consent for Procedure/Surgery [id number]#1.00CD:127 Normal [facility] Formson 12-16-2020 Forms [id number]# 1.00CD:127 Normal [facility] Lab Reportson 12-16-2020 Lab Reports [id number]# 1.00CD:127 [facility] Physician Referralon 021 Physician Referral [id number] #1.00CD:127 [facility] RAD - MISCon 12-16-2020 RAD - MISC [id number] 52#1.00CD:127 [facility] RAD - Ultrasound Reporton RAD - Ultrasound Report [id number] #1.00CD:127 Normal [facility] Ambulatory Clinical Summaryo n 12-15-2020 Ambulatory Clinical Summary {[id number]}CD:[id number] Normal [facility] Patient Educationon 12-16-19 21 Patient Education [...] these instructions at home: Medicines ? Take vvzo-pke-xmsklde and prescription medicines only as told by [...] the blood stops without treatment. ? Take lyiz-rtp-wuyvzpr and prescription medicines only as told by your health care provider. ? Drink enough fluid to keep your urine clear or pale yellow. This information is not intended to replace advice given to you by your health care provider. Make sure you discuss any questions you have with your health care provider. Document Released: 06/19/2006 Document Revised: 11/13/2019 Document Reviewed: 07/22/2017 [employer] Patient Education ? 2019 [employer]. [facility] Urology Office/Clinic Noteon 12-15-2020 Urology [...] The Urethra was dilated to: _18- 30 [place] with sounds. Specimens Removed: None Removal: Cystoscope [...] URL [facility] [address], [place] [address]- [phone] Additional Instructions: f/u PRN Patient Education Hematuria, [...] 50,000 intl units (1.25 mg) oral capsule, 715[address] International_Unit= 1 cap(s), Monday Zioptan 0.0015% ophthalmic solution Allergies erythromycin (Anaphylactic reaction) penicillin (Hives) Social History [employer] (more content not included)... Normal [facility] Comment on above: Result Comment: Elec tronically Signed By: Marcos KWON MD\.br\Date and Time Signed: 12/15/20 15:58 EDT\.br\Electronically Co-Signed By: Donna Hartley.[email or web address]\Date and Time Co-Signed: 12/15/20 15:56 EDT Reminderson 12-14-2020 Reminders - From: Augusta Singh To: [facility] - Clinical; Sent: 12/11/2020 13:29:41 EDT Show up: 12/14/2020 13:29:00 EDT Subject: Urine culture Reminder/Recall Urine Culture PRW reviewed positive culture. [facility] C Urineon 12-13-2020 Bacteria identified [...] Locations R1: This test was performed at: [facility], [address] [place] [address], [facility]- , , Normal [facility] Comment on above: Performed By: #### 2 [id number] ####[facility] [address] [place] [address] [facility] Clinical Summary {[id number]-[id number]-[id number]-y8-[id number]-d3- 6c-b8-cc}CD:[id number] Normal [facility] Ambulatory Clinical Summary {[id number] [id number]-6w-by-51-7q-2h-8d- 13-29-0f}CD:[id number] Normal [facility] Ambulatory Clinical Summary {[id number]-4 7-5g-33-49-98-1m-2b- c5-e6-1f}CD:328235 Normal [facility] Patient Educationon 12-12-19 21 Patient Education [...] these instructions at home: Medicines ? Take ehwh-kwj-ttjsdqb and prescription medicines only as told by [...] the blood stops without treatment. ? Take vgee-row-khcqhgu and prescription medicines only as told by your health care provider. ? Drink enough fluid to keep your urine clear or pale yellow. This information is not intended to replace advice given to you by your health care provider. Make sure you discuss any questions you have with your health care provider. Document Released: 06/19/2006 Document Revised: 11/13/2019 Document Reviewed: 07/22/2017 [employer] Patient Education ? 2019 [employer]. 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 Jenkins due to Hematuria. Pt states that since the End of October she has been feeling a slight squeeze, no pain associated with this. Pt had a Renal US done at [facility]. Pt states that she has a Kidney [...] Marcos Abreu, URL [address] [place] [address]- [phone] Additional Instructions: Patient Education Hematuria, Adult I, [...] not included)... Normal [facility] Comment on above: Result Comment: Elec tronically Signed By: Marcos KWON MD\.br\Date and Time Signed: 12/11/20 11:17 EDT\.br\Electronically Co-Signed By: Regla Pyle MA\.br\Date and Time Co-Signed: 12/11/20 11:12 EDT Lab Reportson 11-16-2020 Lab Reports [id number] #1.00CD:127 Normal [facility] Lab Reports [id number] #1.00CD:127 Normal [facility] RAD - Ultrasound Reporton RAD - Ultrasound Report [id number] #1.00CD:127 Normal [facility] IntraOperative Documentson 1 07-12-2019 IntraOperative Documents [id number] 3#1.00CD:127 Normal [facility] Message from Medicareon Message from Medicare [id number]#1 .00CD:127 Normal [facility] Coding Summary.on 05-06-2020 Coding Summary. CODING DATE: 05/06/2020 FINAL [facility] STATUS: Home (Routine DC) PAYOR: [...] PROC APC STAT DESCRIPTION DOCTOR NAME DATE 65530 5113 J1 Arthroscopy, [place]inita han DO, Michael T 05/01/2020 surgical; with meniscectomy (medial OR lateral, including any meniscal shaving) including debridement/shaving of articular cartilage (chondroplasty), same or separate compartment(s), when performed LT Left side (used to identify procedures performed on the left side of the body) [address]25 Anesthesia for open or Gurmeet Aldridge Jr, [...] Revised Date Saved: 05/06/2020 11:55 am Normal [facility] Insurance Correspondence Off gudelia 05-05-2020 Insurance Correspondence Office [id number] 5#1.00CD:127 Normal [facility] Main OR Intraoperative Recor don 05-05-2020 Main OR Intraoperative Record IntraOp Document Type FT Summary Primary Physician: David Talamantes DO Finalized Date/Time: 05/05/20 14:09:46 Pt. Name: CLAUDIA ESTRELLA Katerin Ramirez/Sex: 1950 Female Med Rec #: [id number] Physician: David Talamantes DO Financial #: [id number] Pt. Type: O Room/Bed: 17/01 Admit/Disch: 05/01/20 [...] Role Performed Anesthesiologist of Surgeon - Primary Fire Assistant - Primary Record Time In 05/01/20 14:26:00 [...] Leatha Flowers RN, CNOR, Cee Role Performed Fire Assistant - Primary Scrub - Primary Fire Assistant - Relief Time In 05/01/20 14:26:00 05/01/20 [...] Jr, DO, Given Participants David Talamantes DO, Edagr WU, Maxim Reid RN, Matthew Crain CST, [...] and tissue Entry 1 Skin Integrity Intact, [place], Warm, and Skin Abnormality No Dry Outcomes Met? Yes Last Modified By: Viky Hernández RN 05/01/20 14:46:48 Post-Care Text: The patient is free from signs and symptoms of injury caused by extraneous objects Patient Positioning FT Pre-Care Text: Identifies physical alterations that require additional precautions for procedure-specific positioning, verifies presence of prosthetics or corrective (more content not included)... Normal [facility] Progress Note-Physicianon Progress Note-Physician Patient: CLAUDIA [...] volume (mL): 1,000, 68.3 kg, 1.64, m2 [place] 5/325 Tab: 1 tab(s), Tab, Oral, q4hr [...] Problems DM kidney disease / SNOMED CT 369526938 / Confirmed PVD (peripheral vascular disease) / SNOMED CT 3372320832 / Confirmed MMT (medial meniscus tear) / SNOMED CT 700118614 / Confirmed Resolved: Ocular herpes zoster / SNOMED CT 573146229 Resolved: HTN (hypertension) / SNOMED CT 3017155430 Canceled: Diabetes / SNOMED CT 142061129 Histories Past Medical History: No active or resolved past medical history items have been selected or recorded. Family History: No family history items have been selected or recorded. Procedure history: Right eye cataract extraction and insertion of intraocular lens (2655052378) on 11/19/2019 at 69 Years. Cataract extraction and insertion of intraocular lens (4430002538) on 11/06/2019 at 69 Years. Comments: 11/06/2019 14:13 EDT - Fabian WU, Loreto Abreu Left Appendectomy (377106181). section x2 (45363839). Cholecystectomy (94087880). Anesthesia for laparoscopic procedure on lower abdomen (12323115). Cheilectomy of tarsal foot (9799476754). Social History Social & Psychosocial Habits Alcohol [...] results ECG interpretation Condition Plan Citizen Of [place] Society of Anesthesiologists (ASA) physical status classification: Class III. Anesthetic Preoperative (more content not included)... Normal [facility] Comment on above: Result Comment: Elec [...] Problems DM kidney disease / SNOMED CT 930057923 / Confirmed PVD (peripheral vascular disease) / SNOMED CT 5392452687 / Confirmed MMT (medial meniscus tear) / SNOMED CT 007527429 / Confirmed Resolved: Ocular herpes zoster / SNOMED CT 284687431 Resolved: HTN (hypertension) / SNOMED CT 3051098959 Canceled: Diabetes / SNOMED CT 334994824 Physical Examination Vital Signs 05/01/2020 16:58 EDT [...] Condition stable. Normal [facility] Comment on above: Result Comment: Elec tronically Signed By: Luis Carlos Gomes DO, Gurmeet Mcdonough\.br\Date and Time Signed: 05/05/20 08:22 EST Capillary Glucose POCon Glucose [Mass/Vol] 149 mg/dL High 55-99 [facility] Comment on above: Result Comment: Monty pelayo RN/ Performed By: #### 2 [id number] #### [facility] [address] [place] [address] Glucose [Mass/Vol] 127 mg/dL High 55-99 [facility] Comment on above: Result Comment: Monty pelayo RN/ Performed By: #### 2 [id number] #### [facility] [address] [place] [address] Consent for Anesthesiaon Consent for Anesthesia [id number] 110 [id number] #1.00CD:127 Normal [facility] Discharge Instructionson Discharge Instructions [id number] [id number] 9#1.00CD:127 Normal [facility] Inpatient Clinical Summaryon 05-04-2020 Inpatient Clinical Summary [place] [id number] Clinical Summary Person Information: Name: CLAUDIA ESTRELLA Age: 70 Years : 1950 Sex: Female PCP: JOHN PERDOMO DO Marital Status: Race: White Ethnicity: Non- or Language: Sinhala Visit Id: Visit Reason: LEFT KNEE BONE BRUISE, MEDIAL MENISCUS TEAR, EFFUSION Speciality: Acuity: Enc Type: Observation Med Service: Surgery Arrival: 05/01/2020 11:43:14 Discharge: Dispo Type: Address: [address] [place] [address] Provider Notes: Diagnosis: 1:Other chest pain; 2:Hypertension; [...] up: With: Address: When: Follow up with Corn Miller Within 1 week With: Address: When: JOHN PERDOMO [address] [place] [address] Business (1) With: Address: When: David Talamantes [address] [place] [address] Business (1) Comments: Keep scheduled appointment Patient Education Information: Post Op Patient Instructions - FT (Custom); Knee Cryocuff Patient Instructions - FT (Custom); Talamantes - Knee Arthroscopy (Custom) (CUSTOM) [facility] Inpatient Patient Summaryon 05-04-2020 Inpatient Patient Summary [address] [address] Patient Discharge Instructions PERSON INFORMATION [...] up: With: Address: When: Follow up with Corn Miller Within 1 week With: Address: When: JOHN PERDOMO [facility] [place] [address] Business (1) With: Address: When: David Talamantes [address] [place] [address] Business (1) Comments: Keep scheduled appointment [...] Medications [id number], [address] [place] [id number], [phone] atorvastatin (Lipitor 20 mg Tab) 1 Tablets [...] not included)... Normal [facility] Interdisciplinary Note - PTo n 05-04-2020 Interdisciplinary Note - PT PT Screen performed. Pt was able to stand and ambulate throughout room without difficulty and without an AD. Pt also demos appropriate ROM to knee. Would recommend to f/u with Ortho to determine if therapy is needed in the future, but no PT needed at this time [facility] IntraOperative Documentson 1 07-04-2019 IntraOperative Documents [id number] #1.00CD:127 [facility] IntraOperative Documents [id number] #1.00CD:127 [facility] Message from Medicareon 110 Message from Medicare [id number] 11 [id number] 5#1.00CD:127 [facility] Monitor Recordon 05-04-2020 Monitor Record [id number] 6#1.00CD:127 [facility] Monitor Record [id number] 5#1.00CD:127 [facility] Monitor Record [id number] 7#1.00CD:127 [facility] Patient Education - Texton 1 07-04-2019 Patient Education - Text (Inserted Image . Unable to display) [place], [place] [facility] DISCHARGE INSTRUCTIONS: KNEE ARTHROSCOPY [...] your appointment. David Talamantes, DO [facility] [address] [place] [address] Reviewed: 10-08 [facility] Preoperative Documentson Preoperative Documents [id number] 110 [id number] #1.00CD:127 [facility] Preoperative Documents [id number] #1.00CD:127 [facility] Prescriptions/Work Noteson 1 07-04-2019 Prescriptions/Work Notes [id number] #1.00CD:127 Normal [facility] Capillary Glucose POCon Glucose [Mass/Vol] 183 mg/dL High 55-99 [facility] Comment on above: Performed By: #### 2 [id number] #### [facility] [address] [place] [address] Glucose [Mass/Vol] 155 mg/dL High 55-99 [facility] Comment on above: Performed By: #### 2 [id number] #### [facility] [address] [place] [address] Glucose [Mass/Vol] 113 mg/dL High 55-99 [facility] Comment on above: Result Comment: Monty MEDEIROS Performed By: #### 2 [id number] ####[facility] [address] [place] [address] Glucose [Mass/Vol] 112 mg/dL High 55-99 [facility] Comment on above: Performed By: #### 2 [id number] #### [facility] [address] [place] [address] Glucose [Mass/Vol] 85 mg/dL Normal 55-99 [facility] Comment on above: Result Comment: Monty MEDEIROS Performed By: #### 2 [id number] #### [facility] [address] [place] [address] Glucose [Mass/Vol] 59 mg/dL Normal 55-99 [facility] Comment on above: Result Comment: Monty MEDEIROS Performed By: #### 2 [id number] #### [facility] [address] [place] [address] Consultation Noteon 05-03-20 Consultation Note HOSPITAL REGULATIONS: [...] left knee and elevate. Eh Carter DO [facility] Dictated: 05/02/2020 #[id number] Typed: 05/02/2020 #[id number] cc: DO David Nieto D.O. Normal [facility] Comment on above: Result Comment: Elec tronically Signed By: Eh Carter DO\.br\Date and Time Signed: 05/03/20 10:27 EST Monitor Recordon 05-03-2020 Monitor Record [id number] 1#1.00CD:127 Normal [facility] Monitor Record [id number] 6#1.00CD:127 Normal [facility] Operative Reporton 0 Operative Report Date of [...] The patient's condition satisfactory David Talamantes D.O. [facility] Dictated: 05/01/2020 #[id number] Typed: 05/01/2020 #[id number] cc: Randa Lanier D.O. [facility] Comment on above: Result Comment: [...] mg/dL High (05/03/20 12:18:00) POC Device SN: [id number] (05/03/20 12:18:00) POC Username: JOSESITO BROWN (05/03/20 [...] 0.4 mg= 1 tab(s), SubLingual, q5min, PRN [place] 5/325 Tab, 1 tab(s), Oral, q4hr, PRN [...] Eye-Both, BID Normal [facility] Comment on above: Result Comment: Elec [...] mg/dL High (05/03/20 07:32:00) POC Device SN: [id number] (05/03/20 07:32:00) POC Username: POC Username (05/03/20 [...] to obtain her records from her primary rn clinical review once 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 Continue [...] not included)... Normal [facility] Comment on above: Result Comment: Elec tronically Signed By: Eleuterio VIGIL, John Olson\.br\Date and Time Signed: 05/03/20 07:45 EST Capillary Glucose POCon 10- Glucose [Mass/Vol] 212 mg/dL High 55-99 [facility] Comment on above: Performed By: #### 2 [id number] #### [facility] [address] [place] [address] Glucose [Mass/Vol] 138 mg/dL High 55-99 [facility] Comment on above: Performed By: #### 2 [id number] #### [facility] [address] [place] [address] Glucose [Mass/Vol] 139 mg/dL High 55-99 [facility] Comment on above: Performed By: #### 2 [id number] #### [facility] [address] [place] [address] Glucose [Mass/Vol] 105 mg/dL High 55- [facility] Comment on above: Performed By: #### 2 [id number] #### [facility] [address] [place] [address] Glucose [Mass/Vol] 233 mg/dL High 55- [facility] Comment on above: Result Comment: Monty pelayo RN/ Performed By: #### 2 [id number] ####[facility] [address] [place] [address] Lipid Panelon 05-02-2020 Cholesterol [Mass/Vol] 160 mg/dL Normal 120-200 [facility] Comment on above: Performed By: #### 2 [id number] #### [facility] [address] [place] [address] Cholesterol in HDL [Mass/Vol] 49 mg/dL Invalid Interpretation Code [facility] Comment on above: Result Comment: HDL > or equal to 60 mg/dL: Low cardiovascular risk HDL < 40 mg/dL : High cardiovascular risk Performed By: #### 2 [id number] #### [facility] [address] [place] [address] Cholesterol in LDL [Mass/Vol] 98 mg/dL Normal <=129 [facility] Comment on above: Performed By: #### 2 [id number] #### [facility] [address] [place] [address] Cholesterol in VLDL [Mass/Vol] 12 mg/dL Normal 7-40 [facility] Comment on above: Performed By: #### 2 [id number] #### [facility] [address] [place] [address] Triglyceride [Mass/Vol] 61 mg/dL Normal <=149 F [facility] Comment on above: Performed By: #### 2 [id number] #### [facility] [address] [place] [address] Monitor Recordon 05-02-2020 Monitor Record [id number] 2#1.00CD:127 Normal [facility] Progress Note-Physicianon Progress Note-Physician Assessment/Plan 1. [...] not included)... Normal [facility] Comment on above: Result Comment: Elec tronically Signed By: JUN VIGIL, Nhung\.br\Date and Time Signed: 05/02/20 10:00 EDT Troponin 3 Hr.on 05-02-2020 Troponin I.cardiac [Mass/Vol] 3.60 pg/mL Low 10.10-27.10 [facility] Comment on above: Result Comment: The 95% CI (Confidence Interval) PPV (Positive Predictive Value) for myocardial infarction in females is 38 pg/mL, in males 51 pg/mL. The results should be used in conjunction with clinical conditions of myocardial infarction. (Access High Sensitivity Troponin I Instructions For Use, [employer], January 2018) Performed By: #### 2 [id number] #### [facility] [address] [place] [address] Troponin 6 Hr.on 05-02-2020 Troponin I.cardiac [Mass/Vol] 3.90 pg/mL Low 10.10-27.10 [facility] Comment on above: Result Comment: The 95% CI (Confidence Interval) PPV (Positive Predictive Value) for myocardial infarction in females is 38 pg/mL, in males 51 pg/mL. The results should be used in conjunction with clinical conditions of myocardial infarction. (Access High Sensitivity Troponin I Instructions For Use, [employer], January 2018) Performed By: #### 2 [id number] #### [facility] [address] [place] [address] Troponin 9 Hr.on 05-02-2020 Troponin I.cardiac [Mass/Vol] 5.10 pg/mL Low 10.10-27.10 [facility] Comment on above: Result Comment: The 95% CI (Confidence Interval) PPV (Positive Predictive Value) for myocardial infarction in females is 38 pg/mL, in males 51 pg/mL. The results should be used in conjunction with clinical conditions of myocardial infarction. (Access High Sensitivity Troponin I Instructions For Use, [employer] 2018) Performed By: #### 2 [id number] #### [facility] [address] [place] [address] US Carotid Duplex Bilateralo n 05-02-2020 US [...] Antegrade Yes Normal [facility] Auto Diffon 05-01-2020 Basophils/100 WBC (Bld) 0.4 % Normal 0.0-2.0 F [facility] Comment on above: Order Comment: Order Added by Discern Expert. Performed By: #### 2 [id number], [id number], [id number], [id number] #### [facility] [address] [place] [address] Basophils/Leukocytes Auto (Bld) [Pure # fraction] 0.0 E9/L Normal 0.0-0.2 [facility] Comment on above: Order Comment: Order Added by Discern Expert. Performed By: #### 2 [id number], [id number], [id number], [id number] #### [facility] [address] [place] [address] Eosinophils/100 WBC (Bld) 1.2 % Normal 0.0-8.0 [facility] Comment on above: Order Comment: Order Added by Discern Expert. Performed By: #### 2 [id number], [id number], [id number], [id number] #### [facility] [address] [place] [address] Eosinophils/Leukocytes Auto (Bld) [Pure # fraction] 0.1 E9/L Normal 0.0-0.5 [facility] Comment on above: Order Comment: Order Added by Discern Expert. Performed By: #### 2 [id number], [id number], [id number], [id number] #### [facility] [address] [place] [address] Lymphocytes/100 WBC (Bld) 9.7 % Low 14.0-50.0 [facility] Comment on above: Order Comment: Order Added by Discern Expert. Performed By: #### 2 [id number], [id number], [id number], [id number] #### [facility] [address] [place] [address] Lymphocytes/Leukocytes Auto (Bld) [Pure # fraction] 1.0 E9/L Normal 1.0-4.0 [facility] Comment on above: Order Comment: Order Added by Discern Expert. Performed By: #### 2 [id number], [id number], [id number], [id number] #### [facility] [address] [place] [address] Monocytes/100 WBC (Bld) 4.2 % Normal 4.0-14.0 [facility] Comment on above: Order Comment: Order Added by Discern Expert. Performed By: #### 2 [id number], [id number], [id number], [id number] #### [facility] [address] [place] [address] Monocytes/Leukocytes Auto (Bld) [Pure # fraction] 0.4 E9/L Normal 0.2-1.0 [facility] Comment on above: Order Comment: Order Added by Discern Expert. Performed By: #### 2 [id number], [id number], [id number], [id number] #### [facility] [address] [place] [address] Neutrophils/100 WBC (Bld) 84.5 % High 36.0-75.0 [facility] Comment on above: Order Comment: Order Added by Discern Expert. Performed By: #### 2 711838, [id number], [id number], [id number] #### [facility] [address] [place] [address] Neutrophils/Leukocytes Auto (Bld) [Pure # fraction] 8.9 E9/L High 2.0-7.5 [facility] Comment on above: Order Comment: Order Added by Discern Expert. Performed By: #### 2 [id number], [id number], [id number], [id number] #### [facility] [address] [place] [address] [facility] 05-01-2020 Calcium [Mass/Vol] 8.9 mg/dL Normal 8.9-11.1 [facility] Comment on above: Performed By: #### 2 722165, 10297754, 1615456, 0395815 #### [facility] [address] [place] [address] Anion gap [Moles/Vol] 10 mmol/L Normal 6-16 [facility] Comment on above: Performed By: #### 2 413073, 26022928, 0094977, 3284850 #### [facility] [address] [place] [address] Chloride [Moles/Vol] 103 mmol/L Normal 101-111 [facility] Comment on above: Performed By: #### 2 745625, 00271427, 4686324, 4323625 #### [facility] [address] [place] [address] CO2 [Moles/Vol] 24 mmol/L Normal 21-31 [facility] Comment on above: Performed By: #### 2 553999, 77202260, 0171150, 3567456 #### [facility] [address] [place] [address] Creatinine [Mass/Vol] 1.6 mg/dL High 0.5-1.3 [facility] Comment on above: Performed By: #### 2 747548, 13342179, 2027062, 3386540 #### [facility] [address] [place] [address] Glucose [Mass/Vol] 167 mg/dL Normal 55-199 [facility] Comment on above: Result Comment: If t his glucose result represents a fasting glucose, interpretation should refer to the following reference range: 55-99 mg/dL Performed By: #### 2 272223, 57626987, 7287787, 7947466 #### [facility] [address] [place] [address] Potassium [Moles/Vol] 3.9 mmol/L Normal 3.5-5.3 [facility] Comment on above: Performed By: #### 2 765442, 98395119, 1753150, 3667059 #### [facility] [address] [place] [address] Sodium [Moles/Vol] 133 mmol/L Low 135-145 [facility] Comment on above: Performed By: #### 2 563763, 87574169, 8404550, 5815935 #### [facility] [address] [place] [address] Urea nitrogen [Mass/Vol] 34 mg/dL High 5-21 [facility] Comment on above: Performed By: #### 2 742956, 71246698, 4480249, 5045936 #### [facility] [address] [place] [address] Urea nitrogen/Creatinine [Mass ratio] 21 No Units High 10-20 [facility] Comment on above: Performed By: #### 2 371463, 48005187, 4732018, 0964055 #### [facility] [address] [place] [address] CBC w/ Auto Diffon 0 Erythrocyte distribution width (RBC) [Ratio] 13.0 % Normal 10.9-14.2 [facility] Comment on above: Performed By: #### 2 872496, 25520692, 2528792, 7073879 #### [facility] [address] [place] [address] Hematocrit (Bld) [Volume fraction] 32.4 % Low 34.0-46.0 [facility] Comment on above: Performed By: #### 2 538199, 51956979, 7900385, 1254955 #### [facility] [address] [place] [address] Hemoglobin (Bld) [Mass/Vol] 11.2 g/dL Low 12.0-16.0 [facility] Comment on above: Performed By: #### 2 419072, 48073441, 7198281, 0786030 #### [facility] [address] [place] [address] MCH (RBC) [Entitic mass] 29.6 pg Normal 27.0-34.0 [facility] Comment on above: Performed By: #### 2 252939, 84408826, 2598881, 4867085 #### [facility] [address] [place] [address] MCHC (RBC) [Mass/Vol] 34.6 g/dL Normal 31.4-36.0 [facility] Comment on above: Performed By: #### 2 815271, 47083008, 0945774, 9717070 #### [facility] [address] [place] [address] MCV (RBC) [Entitic vol] 85.5 fL Normal 80.0-100.0 [facility] Comment on above: Performed By: #### 2 204762, 17177003, 1153222, 0393046 #### [facility] [address] [place] [address] Platelet mean volume (Bld) [Entitic vol] 8.4 fL Normal 6.4-10.8 [facility] Comment on above: Performed By: #### 2 905987, 71611900, 2276910, 7311062 #### [facility] [address] [place] [address] Platelets (Bld) [#/Vol] 242.0 E9/L Normal 150.0-500.0 [facility] Comment on above: Performed By: #### 2 366514, 08425477, 6885922, 8600859 #### [facility] [address] [place] [address] RBC (Bld) [#/Vol] 3.8 E12/L Low 4.3-5.9 [facility] Comment on above: Performed By: #### 2 453373, 01471583, 4015574, 9678146 #### [facility] [address] [place] [address] WBC corrected for nucl RBC Auto (Bld) [#/Vol] 10.5 E9/L Normal 4.0-11.0 [facility] Comment on above: Performed By: #### 2 721576, 02502656, 2205818, 7252810 #### [facility] [address] [place] [address] Capillary Glucose POCon 04-04 Glucose [Mass/Vol] 84 mg/dL Normal 55-99 [facility] Comment on above: Result Comment: Repe at Test Performed By: #### 2 [id number] #### [facility] [address] [place] [address] Glucose [Mass/Vol] 88 mg/dL Normal 55-99 [facility] Comment on above: Result Comment: Repe at Test Performed By: #### 2 [id number] #### [facility] [address] [place] [address] Coding Summary.on 05-01-2020 Coding Summary. CODING DATE: 05/01/2020 FINAL [facility] STATUS: Home (Routine DC) PAYOR: [...] for screening for other viral diseases [facility] APC STAT DESCRIPTION DOCTOR NAME DATE NOTE: The code number assigned matches the documented diagnosis and / or procedure in the patient's chart. However, the narrative phrase printed from the coding software may appear abbreviated, or result in slightly different terminology. Coded By: Gabriela Houston CphT Date Saved: 05/01/2020 08:36 am Normal [facility] Coding Summary. CODING DATE: 04/25/2020 FINAL [facility] STATUS: Home (Routine DC) PAYOR: [...] 04:17 pm Normal [facility] Consent for Treatmenton 04-04 Consent for Treatment [id number] #1.00CD:127 [facility] Consent for Treatment [id number] #1.00CD:127 [facility] H&P Updateon 05-01-2020 H&P Update [id number] #1.00CD:127 [facility] Main OR PACU I Recordon 04-04 Main OR PACU I Record PACU Phase I Document Type FT Summary Primary Physician: David Talamantes DO Finalized Date/Time: 05/01/20 18:04:55 Pt. Name: CLAUDIA ESTRELLA/Sex: 1950 Female Med Rec #: [id number] Physician: David Talamantes DO Financial #: [id number] Pt. Type: A Room/Bed: [place] [address] Admit/Disch: 05/01/20 11:43:14 - Institution: Case Times [...] 05/01/20 18:04 Normal [facility] Main OR PACU II Recordon Main OR PACU II Record PACU Phase II Document Type FT Summary Primary Physician: David Talamantes DO Finalized Date/Time: 05/01/20 20:09:08 Pt. Name: CLAUDIA ESTRELLA/Sex: 1950 Female Med Rec #: [id number] Physician: David Talamantes DO Financial #: [id number] Pt. Type: O Room/Bed: [facility] Admit/Disch: 05/01/20 11:43:14 - Institution: Case Times [...] Signed By: Yessy Curran RN 05/01/20 20:09 [facility] Main OR Preoperative Recordo n 05-01-2020 Main OR Preoperative Record PreOp Document Type FT Summary Primary Physician: David Talamantes DO Finalized Date/Time: 05/01/20 14:45:06 Pt. Name: CLAUDIA ESTRELLA /Sex: 1950 Female Med Rec #: [id number] Physician: David Talamantes DO Financial #: [id number] Pt. Type: A Room/Bed: [place] [address] Admit/Disch: 05/01/20 11:43:14 - Institution: Case Times [...] 05/01/20 14:45 Normal [facility] Monitor Recordon 05-01-2020 Monitor Record [id number] 0#1.00CD:127 Normal [facility] Monitor Record [id number] 8#1.00CD:127 [facility] Outside Radiologyon 05-01-20 20 Outside Radiology [id number] #1.00CD:127 [facility] Outside Recordson 05-01-2020 Outside Records [id number] #1.00CD:127 Normal [facility] Progress Note-Nurseon 2019 Progress Note-Nurse At [...] voicemail. 1834--This nurse spoke with Dr. Carter (compliance consultant physician), informed Dr. Carter reason for admission and patient's room number. Dr. Aldridge at bedside at 170--Physician looked at patient EKG strip that was printed. Normal [facility] Progress Note-Nurse 1528: pt. medicated with [...] and updated. Normal [facility] Troponin 0 Hr.on 05-01-2020 Troponin I.cardiac [Mass/Vol] 4.10 pg/mL Low 10.10-27.10 [facility] Comment on above: Result Comment: The 95% CI (Confidence Interval) PPV (Positive Predictive Value) for myocardial infarction in females is 38 pg/mL, in males 51 pg/mL. The results should be used in conjunction with clinical conditions of myocardial infarction. (Access High Sensitivity Troponin I Instructions For Use, [employer], January 2018) Performed By: #### 2 [id number] #### [facility] [address] [place] [address] eGFRon 05-01-2020 GFR/1.73 sq M.predicted among blacks MDRD (S/P/Bld) [Vol rate/Area] 39 mL/min/1.73 m2 Low >=59 [facility] Comment on above: Order Comment: Order added by Discern Expert. Result Comment: eGFR is race adjusted. AA=. Performed By: #### 2 034140, 61650513, 4345654, 8030353 #### [facility] [address] [place] [address] GFR/1.73 sq M.predicted among non-blacks MDRD (S/P/Bld) [Vol rate/Area] 32 mL/min/1.73 m2 Low >=59 [facility] Comment on above: Order Comment: Order added by Discern Expert. Result Comment: Certified Registered Nurse Anesthetist jayden kidney disease could be indicated at eGFR's of less than 60 mL/min/1.73m2. Kidney failure is indicated at less than 15 mL/min/1.73m2. Performed By: #### 2 364994, 45268369, 7651767, 9899626 #### [facility] [address] [place] [address] Coding Summary.on 04-28-2020 Coding Summary. CODING DATE: 04/28/2020 FINAL [facility] STATUS: Home (Routine DC) PAYOR: [...] 09:19 am Normal [facility] Outpatient Surgery Discharge Instructionon 04-28-2020 Outpatient Surgery Discharge Instruction [address] [address] Patient Discharge Instructions PERSON INFORMATION Name: CLAUDIA [...] Follow up: With: Address: When: David Talamantes [address] [place] [address] [facility] () Comments: Keep scheduled appointment Type Location Start [facility] Surgical Services 05/01/2020 2:15 PM 05/01/2020 2:55 PM Confirmed Pharmacy Information: Thank you for choosing [facility] HERE ARE THE MEDICATION CHANGES THAT [...] tab Oral Daily. PATIENT EDUCATION INFORMATION Instructions: [place], [place] [facility] DISCHARGE INSTRUCTIONS: KNEE ARTHROSCOPY [...] not included)... Normal [facility] Consent for Procedure/Surger yon 04-27-2020 Consent for Procedure/Surgery [id number]#1.00CD:127 Normal [facility] Outside Recordson 04-27-2020 Outside Records [id number] 9#1.00CD:127 Normal [facility] Priority Order-Trina 2019 Priority Order-STAT Comment Invalid Interpretation Code [facility] Comment on above: Result Comment: Rece ived Performed at: [facility] [address] [place], [place] [id number] MD Bladimir Briones Performed By: #### 2 [id number] #### [facility] [address] [place] [address] SARS-CoV-2, NAAon 04-25-2020 SARS-CoV-2 (COVID-19) RNA JAYASHREE+probe Ql (Resp) Not detected Invalid Interpretation Code Not Detected [facility] Comment on above: Result Comment: This nucleic acid amplification test was developed and its performance characteristics determined by [employer]. Nucleic acid amplification tests include PCR and [...] detected) result in this assay. Performed at: [facility] [address] [facility] [place] [id number] MD Bladimir Briones Performed By: #### 2 [id number] #### [facility] [address] [place] [address] XR Chest 2 Viewson 0 XR Chest [...] Technologist: [place] Normal [facility] BUNon 04-24-2020 Urea nitrogen [Mass/Vol] 36 mg/dL High 5-21 [facility] Comment on above: Performed By: #### 1 8028628, 1850899, 0132703, 1999451, 4310976, 8170124 ####[facility] [address] [place] [address] CBC w/Indiceson 04-24-2020 Erythrocyte distribution width (RBC) [Ratio] 13.0 % Normal 10.9-14.2 [facility] Comment on above: Performed By: #### 1 8768790, 9544961, 8112845, 0450196, 1808570, 4480252 ####[facility] [address] [place] [address] Hematocrit (Bld) [Volume fraction] 34.1 % Normal 34.0-46.0 [facility] Comment on above: Performed By: #### 1 6766884, 5752844, 5224804, 5669962, 0218125, 1648036 ####[address] [address] Hemoglobin (Bld) [Mass/Vol] 11.6 g/dL Low 12.0-16.0 [facility] Comment on above: Performed By: #### 1 9404321, 2653875, 2830017, 9583313, 3746480, 8668103 ####[address] [address] MCH (RBC) [Entitic mass] 29.5 pg Normal 27.0-34.0 [facility] Comment on above: Performed By: #### 1 3675020, 6020265, 5704421, 7737658, 9673946, 9551460 ####[address] [address] MCHC (RBC) [Mass/Vol] 34.1 g/dL Normal 31.4-36.0 [facility] Comment on above: Performed By: #### 1 8960574, 2129264, 2256667, 9234477, 2358583, 9103875 ####[address] [address] MCV (RBC) [Entitic vol] 86.5 fL Normal 80.0-100.0 [facility] Comment on above: Performed By: #### 1 6708741, 4310618, 9768208, 0980870, 1722128, 0338454 ####[address] [address] Platelet mean volume (Bld) [Entitic vol] 9.4 fL Normal 6.4-10.8 [facility] Comment on above: Performed By: #### 1 1549265, 5933206, 3434585, 3448039, 3313618, 1229732 ####[address] [address] Platelets (Bld) [#/Vol] 246.0 E9/L Normal 150.0-500.0 [facility] Comment on above: Performed By: #### 1 2624444, 4937393, 2487459, 7800275, 7054133, 9775350 ####[facility] [address] [place] [address] RBC (Bld) [#/Vol] 3.9 E12/L Low 4.3-5.9 [facility] Comment on above: Performed By: #### 1 8412202, 1096323, 1602793, 8009066, 7643322, 0897157 ####[facility] [address] [place] [address] WBC corrected for nucl RBC Auto (Bld) [#/Vol] 10.0 E9/L Normal 4.0-11.0 [facility] Comment on above: Performed By: #### 1 4022061, 0472413, 1905546, 2198783, 3086142, 9642366 ####[facility] [address] [place] [address] Consent for Treatmenton 04-03 Consent for Treatment [id number] #1.00CD:127 Normal [facility] Creatinineon 04-24-2020 Creatinine [Mass/Vol] 1.6 mg/dL High 0.5-1.3 [facility] Comment on above: Performed By: #### 1 1226050, 9038755, 4971182, 6834317, 2165900, 3215754 ####[facility] [address] [place] [address] Glu Fastingon 04-24-2020 Glucose [Mass/Vol] 81 mg/dL Normal 55-99 [facility] Comment on above: Performed By: #### 1 8051765, 5797045, 6943704, 0896844, 6014692, 7874749 ####[facility] [address] [place] [address] Lyteson 04-24-2020 Anion gap [Moles/Vol] 13 mmol/L Normal 6-16 [facility] Comment on above: Performed By: #### 1 7031230, 0563482, 2716216, 9526915, 4287903, 8648114 ####[facility] [address] [place] [address] Chloride [Moles/Vol] 103 mmol/L Normal 101-111 [facility] Comment on above: Performed By: #### 1 3737035, 1926610, 7001757, 9852103, 7830156, 5735639 ####[facility] [address] [facility], [place] [address] CO2 [Moles/Vol] 26 mmol/L Normal 21-31 [facility] Comment on above: Performed By: #### 1 5832467, 4120699, 2206868, 1745470, 5827955, 2258840 ####[facility] [address] [place] [address] Potassium [Moles/Vol] 3.9 mmol/L Normal 3.5-5.3 [facility] Comment on above: Performed By: #### 1 6820204, 9970625, 1312790, 3882055, 9393947, 3596276 ####[facility] [address] [place] [address] Sodium [Moles/Vol] 138 mmol/L Normal 135-145 [facility] Comment on above: Performed By: #### 1 6280661, 5700958, 8833762, 7146297, 2495797, 2914486 ####[facility] [address] [place] [address] Physician Orderon 04-24-2020 Physician Order [id number] 3#1.00CD:127 Normal [facility] eGFRon 04-24-2020 GFR/1.73 sq M.predicted among blacks MDRD (S/P/Bld) [Vol rate/Area] 39 mL/min/1.73 m2 Low >=59 [facility] Comment on above: Order Comment: Order added by Discern Expert. Result Comment: eGFR is race adjusted. AA=. Performed By: #### 1 0158545, 9561499, 4000281, 6891863, 6154443, 0426270 ####[facility] [address] [place] [address] GFR/1.73 sq M.predicted among non-blacks MDRD (S/P/Bld) [Vol rate/Area] 32 mL/min/1.73 m2 Low >=59 [facility] Comment on above: Order Comment: Order added by Discern Expert. Result Comment: Certified Registered Nurse Anesthetist jayden kidney disease could be indicated at eGFR's of less than 60 mL/min/1.73m2. Kidney failure is indicated at less than 15 mL/min/1.73m2. Performed By: #### 1 0302267, 7230685, 7842424, 0767426, 5102928, 1254473 ####[facility] [address] [place] [address] Physician Orderon 04-13-2020 Physician Order [id number] 5#1.00CD:127 Normal [facility] Physician Orderon 04-10-2020 Physician Order [id number] 3#1.00CD:127 Normal [facility] Vital Signs Date Time Vital Sign Value Performing Clinician Facility 01-29-2025 11:37-0400 Body height 147.32 cm John Michelring DO Work Phone: [facility] 01-29-2025 11:37-0400 Body mass index (BMI) [Ratio] 26.5 kg/m2 John Perdomo DO Work Phone: [facility] 01-29-2025 11:37-0400 Body weight 57.6 kg John Perdomo DO Work Phone: [facility] 01-29-2025 11:37-0400 Diastolic blood pressure 50 mm[Hg] John Perdomo DO Work Phone: [facility] 01-29-2025 11:37-0400 Heart rate 72 /min John Perdomo DO Work Phone: [facility] 01-29-2025 11:37-0400 Respiratory rate 18 /min John Perdomo DO Work Phone: [facility] 01-29-2025 11:37-0400 SaO2% (BldA) [Mass fraction] 95 % John Perdomo DO Work Phone: [facility] 01-29-2025 11:37-0400 Systolic blood pressure 156 mm[Hg] John Perdomo DO Work Phone: [facility] 09-03-2024 15:36-0500 Body height 147.32 cm [facility] 09-03-2024 15:36-0500 Body mass index (BMI) [Ratio] 25.6 kg/m2 [facility] 09-03-2024 15:36-0500 Body temperature 99.3 [degF] [facility] 09-03-2024 15:36-0500 Body weight 55.56 kg [facility] 09-03-2024 15:36-0500 Diastolic blood pressure 66 mm[Hg] [facility] 09-03-2024 15:36-0500 Heart rate 73 /min [facility] 09-03-2024 15:36-0500 Respiratory rate 18 /min [facility] 09-03-2024 15:36-0500 SaO2% (BldA) [Mass fraction] 95 % [facility] 09-03-2024 15:36-0500 Systolic blood pressure 149 mm[Hg] [facility] 05-13-2024 15:30-0500 Body height 147.32 cm [facility] 05-13-2024 15:30-0500 Body mass index (BMI) [Ratio] 27.1 kg/m2 [facility] 05-13-2024 15:30-0500 Body temperature 97.5 [degF] [facility] 05-13-2024 15:30-0500 Body weight 58.96 kg [facility] 05-13-2024 15:30-0500 Diastolic blood pressure 74 mm[Hg] [facility] 05-13-2024 15:30-0500 Heart rate 72 /min [facility] 05-13-2024 15:30-0500 Respiratory rate 16 /min [facility] 05-13-2024 15:30-0500 SaO2% (BldA) [Mass fraction] 95 % [facility] 05-13-2024 15:30-0500 Systolic blood pressure 122 mm[Hg] [facility] 01-08-2024 13:03-0400 Body height 147.32 cm [facility] 01-08-2024 13:03-0400 Body mass index (BMI) [Ratio] 26.1 kg/m2 [facility] 01-08-2024 13:03-0400 Body temperature 98.6 [degF] [facility] 01-08-2024 13:03-0400 Body weight 56.75 kg [facility] 01-08-2024 13:03-0400 Diastolic blood pressure 62 mm[Hg] [facility] 01-08-2024 13:03-0400 Heart rate 69 /min [facility] 01-08-2024 13:03-0400 Respiratory rate 16 /min [facility] 01-08-2024 13:03-0400 SaO2% (BldA) [Mass fraction] 96 % [facility] 01-08-2024 13:03-0400 Systolic blood pressure 144 mm[Hg] [facility] 09-25-2023 15:52-0400 Body weight 58.74 kg [facility] 09-25-2023 15:52-0400 Diastolic blood pressure 60 mm[Hg] [facility] 09-25-2023 15:52-0400 Heart rate 65 /min [facility] 09-25-2023 15:52-0400 Systolic blood pressure 110 mm[Hg] [facility] 05-30-2023 15:40-0500 Body height 147.32 cm Geneva Mary Grace Other [facility] 05-30-2023 15:40-0500 Body mass index (BMI) [Ratio] 26.92 kg/m2 Geneva Mary Grace Other [facility] 05-30-2023 15:40-0500 Body temperature 97 [degF] Geneva Mary Grace Other [facility] 05-30-2023 15:40-0500 Body weight 58.42 kg Geneva Mary Grace Other [facility] 05-30-2023 15:40-0500 Diastolic blood pressure 71 mm[Hg] Geneva Mary Grace Other [facility] 05-30-2023 15:40-0500 Respiratory rate 18 /min Geneva Mary Grace Other [facility] 05-30-2023 15:40-0500 SaO2% (BldA) [Mass fraction] 97 % Geneva Mary Grace Other [facility] 05-30-2023 15:40-0500 Systolic blood pressure 153 mm[Hg] Geneva Mary Grace Other [facility] 01-30-2023 15:40-0400 Body height 147.32 cm Geneva Mary Grace Other [facility] 01-30-2023 15:40-0400 Body mass index (BMI) [Ratio] 26.83 kg/m2 Geneva Mary Grace Other [facility] 01-30-2023 15:40-0400 Body temperature 97.7 [degF] Geneva Mary Grace Other [facility] 01-30-2023 15:40-0400 Body weight 58.24 kg Geneva Mary Grace Other [facility] 01-30-2023 15:40-0400 Diastolic blood pressure 67 mm[Hg] Geneva Mary Grace Other [facility] 01-30-2023 15:40-0400 Respiratory rate 18 /min Geneva Mary Grace Other [facility] 01-30-2023 15:40-0400 SaO2% (BldA) [Mass fraction] 98 % Geneva Mary Grace Other [facility] 01-30-2023 15:40-0400 Systolic blood pressure 136 mm[Hg] Geneva Mary Grace Other [facility] 08-30-2022 14:40-0500 Body height 147.32 cm Geneva Mary Grace Other [facility] 08-30-2022 14:40-0500 Body mass index (BMI) [Ratio] 26.29 kg/m2 Geenva Mary Grace Other [facility] 08-30-2022 14:40-0500 Body temperature 98.6 [degF] Geneva Mary Grace Other [facility] 08-30-2022 14:40-0500 Body weight 57.06 kg Geneva Mary Grace Other [facility] 08-30-2022 14:40-0500 Diastolic blood pressure 72 mm[Hg] Geneva Mary Grace Other [facility] 08-30-2022 14:40-0500 Respiratory rate 18 /min Geneva Mary Grace Other [facility] 08-30-2022 14:40-0500 SaO2% (BldA) [Mass fraction] 96 % Geneva Mary Grace Other [facility] 08-30-2022 14:40-0500 Systolic blood pressure 139 mm[Hg] Geneva Mary Grace Other [facility] 05-30-2022 11:40-0500 Body height 147.32 cm Geneva Mary Grace Other [facility] 05-30-2022 11:40-0500 Body mass index (BMI) [Ratio] 27.25 kg/m2 Geneva Mary Grace Other [facility] 05-30-2022 11:40-0500 Body temperature 96.2 [degF] Geneva Mary Grace Other [facility] 05-30-2022 11:40-0500 Body weight 59.15 kg Geneva Mary Grace Other [facility] 05-30-2022 11:40-0500 Diastolic blood pressure 71 mm[Hg] Geneva Mary Grace Other [facility] 05-30-2022 11:40-0500 SaO2% (BldA) [Mass fraction] 97 % Geneva Mary Grace Other [facility] 05-30-2022 11:40-0500 Systolic blood pressure 151 mm[Hg] Geneva Mary Grace Other [facility] 01-27-2022 12:20-0400 Body height 147.32 cm Geneva Mary Grace Other [facility] 01-27-2022 12:20-0400 Body mass index (BMI) [Ratio] 26.83 kg/m2 Geneva Mary Grace Other [facility] 01-27-2022 12:20-0400 Body temperature 98 [degF] Geneva Mary Grace Other [facility] 01-27-2022 12:20-0400 Body weight 58.24 kg Geneva Mary Grace Other [facility] Other 01-27-2022 12:20-0400 Diastolic blood pressure 69 mm[Hg] Geneva Mary Grace Other [facility] 01-27-2022 12:20-0400 Respiratory rate 18 /min Geneva Mary Grace Other [facility] 01-27-2022 12:20-0400 SaO2% (BldA) [Mass fraction] 96 % Geenva Mary Grace Other [facility] 01-27-2022 12:20-0400 Systolic blood pressure 136 mm[Hg] Geneva Mary Grace Other [facility] 09-20-2021 16:00-0400 Body height 147.32 cm Geneva Mary Grace Other [facility] 09-20-2021 16:00-0400 Body mass index (BMI) [Ratio] 27.42 kg/m2 Geneva Mary Grace Other [facility] 09-20-2021 16:00-0400 Body temperature 97.6 [degF] Geneva Mary Grace Other [facility] 09-20-2021 16:00-0400 Body weight 59.51 kg Geneva Mary Grace Other [facility] Other 09-20-2021 16:00-0400 Diastolic blood pressure 76 mm[Hg] Geneva Mary Grace Other [facility] 09-20-2021 16:00-0400 Respiratory rate 18 /min Geneva Mary Grace Other [facility] 09-20-2021 16:00-0400 SaO2% (BldA) [Mass fraction] 97 % Geneva Mary Grace Other [facility] 09-20-2021 16:00-0400 Systolic blood pressure 169 mm[Hg] Geneva Mary Grace Other [facility] 05-18-2021 15:40-0500 Body height 147.32 cm Geneva Mary Grace Other [facility] 05-18-2021 15:40-0500 Body mass index (BMI) [Ratio] 26.5 kg/m2 Geneva Mary Grace Other [facility] 05-18-2021 15:40-0500 Body temperature 97.2 [degF] Geneva Mary Grace Other [facility] 05-18-2021 15:40-0500 Body weight 57.52 kg Geneva Mary Grace Other [facility] 05-18-2021 15:40-0500 Diastolic blood pressure 79 mm[Hg] Geneva Mary Grace Other [facility] 05-18-2021 15:40-0500 Respiratory rate 18 /min Geneva Mary Grace Other [facility] 05-18-2021 15:40-0500 SaO2% (BldA) [Mass fraction] 97 % Geneva Mary Grace Other [facility] 05-18-2021 15:40-0500 Systolic blood pressure 137 mm[Hg] Geneva Mary Grace Other [facility] Other Encounters Encounter Date Encounter Type Care Provider Facility Start: 04-07-2025 End: 04-07-[address] 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, mild stage Start: 01-29-2025 End: 01-29-2025 ambulatory John Perdomo DO Work Phone: [facility] Work Phone: Start: 01-29-2025 End: 01-29-2025 Patient encounter procedure Geneva Jenkins MD -[facility] [place] Work Phone: Start: 01-20-2025 Non-patient / Non-visit Geneva Jenkins MD -[facility] Work Phone: Start: 11-26-2024 End: 11-26-2024 Bamboo flowsheet Mirta Avileser DO Work Phone: [facility] Start: 11-26-2024 End: 11-26-2024 Bamboo flowsheet Mirta Avileser DO Work Phone: [facility] Start: 11-26-2024 End: 11-26-2024 ambulatory MIRTA TERAN Not Available Start: 09-16-2024 End: 09-16-[address] [facility] Start: 09-03-2024 End: 09-03-2024 ambulatory [facility] Work Phone: Start: 09-03-2024 End: 09-03-2024 Patient encounter procedure [facility] [place] Work Phone: Start: 08-26-2024 Non-patient / Non-visit [facility] Work Phone: Start: 05-15-2024 End: 05-15-2024 Bamboo flowsheet Mirta Avileser DO Work Phone: [facility] Start: 05-15-2024 End: 05-15-2024 Bamboo flowsheet Mirta Teran DO Work Phone: [facility] Start: 05-15-2024 End: 05-15-2024 ambulatory MIRTA TERAN Not Available Start: 05-13-2024 End: 05-13-2024 ambulatory [facility] Work Phone: Start: 05-13-2024 End: 05-13-2024 Patient encounter procedure [facility] [place] Work Phone: Start: 05-09-2024 Non-patient / Non-visit [facility] Work Phone: Start: 01-08-2024 End: 01-08-2024 ambulatory [facility] Work Phone: Start: 01-08-2024 End: 01-08-2024 Patient encounter procedure [facility] Nephrology Work Phone: Start: 01-01-2024 Non-patient / Non-visit [facility] [employer] Work Phone: Start: 09-25-2023 End: 09-25-2023 ambulatory [facility] Work Phone: Start: 09-25-2023 End: 09-25-2023 Patient encounter procedure [facility] Nephrology Work Phone: Start: 08-08-2023 End: 08-08-2023 ambulatory Geneva Mary Grace Other [facility] Other Start: 08-08-2023 Telephone encounter Geneva Mary Grace [facility] Start: 07-11-2023 End: 07-11-2023 ambulatory Geneva Mary Grace Other [facility] Other Start: 07-11-2023 Telephone encounter Geneva Mary Grace [facility] Start: 05-30-2023 End: 05-30-2023 ambulatory Geneva Mary Grace Other [facility] Other Start: 05-30-2023 Office outpatient visit 25 minutes Geneva Mary Grace [facility] Start: 05-23-2023 End: 05-23-2023 ambulatory Geneva Mary Grace Other [facility] Other Start: 05-23-2023 Telephone encounter Geneva Mary Grace [facility] Start: 01-30-2023 End: 01-30-2023 ambulatory Geneva Mary Grace Other [facility] Other Start: 01-30-2023 Encounter by compute r link Geneva Mary Grace [facility] Start: 01-30-2023 Office outpatient visit 25 minutes Geneva Mary Grace [facility] Start: 10-27-2022 End: 10-27-2022 ambulatory Geneva Mary Grace Other [facility] Start: 10-27-2022 Telephone encounter Geneva Mary Grace [facility] Start: 10-26-2022 End: 10-27-[address] JOHN PERDOMO Facility:[facility] Start: 08-30-2022 End: 08-30-2022 ambulatory Geneva Mary Grace Other [facility] Start: 08-30-2022 Office outpatient visit 25 [...] End: 05-30-2022 ambulatory Geneva Mary Grace Other [facility] Other Start: 05-30-2022 Office outpatient visit 25 minutes Geneva Mary Grace [facility] Start: 05-27-2022 End: 05-28-[address] JOHN PERDOMO Facility:[facility] Start: 05-23-2022 Telephone encounter Geneva Mary Grace [facility] Start: 05-23-2022 End: 05-24-[address] JOHN PERDOMO [employer] Other Start: 05-14-2022 End: 05-15-2022 ambulatory KWAN ROSALES Facility:[facility] Start: 05-12-2022 End: 05-12-2022 ambulatory Geneva Mary Grace Other [facility] Other Start: 05-12-2022 Telephone encounter Geneva Mary Grace [facility] Start: 05-11-2022 End: 05-12-2022 ambulatory KWAN ROSALES Facility:[facility] Start: 03-17-2022 End: 03-18-[address] JOHN PERDOMO Facility:[facility] Start: 01-27-2022 End: 01-27-2022 ambulatory Geneva Mary Grace Other [facility] Other Start: 01-27-2022 Office outpatient visit 25 minutes Geneva Mary Grace [facility] Start: 01-21-2022 End: 01-22-[address] JOHN PERDOMO Facility: Start: 01-17-2022 End: 01-18-[address] JOHN PERDOMO Facility: Start: 01-13-2022 End: 01-13-2022 ambulatory Geneva Mary Grace Other [facility] Other Start: 01-13-2022 Telephone encounter Geneva Mary Grace [facility] Start: 12-16-2021 Telephone encounter Geneva Mary Grace [facility] Start: 12-16-2021 End: 12-17-[address] JOHN PERDOMO [facility] Other Start: 12-09-2021 End: 12-10-2021 ambulatory JOHN PERDOMO Facility:[facility] Start: 12-08-2021 End: 12-08-2021 ambulatory Geneva Mary Grace Other [facility] Other Start: 12-08-2021 Telephone encounter Geneva Mary Grace [facility] Start: 12-07-2021 End: 12-07-[address] JOHN PERDOMO Facility:[facility] Start: 12-06-2021 End: 12-07-[address] JOHN PERDOMO Facility:[facility] Start: 12-01-2021 End: 12-02-[address] JOHN PERDOMO Facility:[facility] Start: 11-19-2021 End: 11-20-[address] JOHN PERDOMO Facility:[facility] Start: 11-01-2021 End: 11-01-2021 ambulatory Geneva Mary Grace Other [facility] Start: 11-01-2021 Encounter by Pumpic r link Geneva Mary Grace [facility] Start: 10-28-2021 End: 10-28-2021 ambulatory Geneva Mary Grace Other [facility] Other Start: 10-28-2021 Telephone encounter Geneva Mary Grace [facility] Start: 10-13-2021 End: 10-13-2021 ambulatory Geneva Mary Grace Other [facility] Other Start: 10-13-2021 Encounter by Pumpic r link Geneva Mary Grace [facility] Start: 10-06-2021 End: 10-06-2021 ambulatory Geneva Mary Grace Other [facility] Other Start: 10-06-2021 Telephone encounter Geneva Mary Grace [facility] Start: 09-21-2021 End: 09-21-2021 ambulatory Geneva Mary Grace Other [facility] Other Start: 09-21-2021 Telephone encounter Geneva Mary Grace [facility] Start: 09-20-2021 End: 09-20-2021 ambulatory Geneva Mary Grace Other [facility] Other Start: 09-20-2021 Office outpatient visit 25 minutes Geneva Mary Grace [facility] Start: 08-01-2021 End: 08-01-2021 ambulatory Geneva Mary Grace Other [facility] Other Start: 08-01-2021 Encounter by Pumpic r link Geneva Mary Grace [facility] Start: 07-18-2021 End: 07-18-2021 ambulatory Geneva Mary Grace Other [facility] Other Start: 07-18-2021 Encounter by Pumpic r link Geneva Mary Grace [facility] Start: 05-18-2021 End: 05-18-2021 ambulatory Geneva Mary Grace Other [facility] Other Start: 05-18-2021 Office outpatient visit 25 minutes Geneva Mary Grace [facility] Procedures Date Procedure Procedure Detail Performing Clinician Start: 11-26-2024 Visual field xm uni/ bi w/interp extended exam Mirta Teran DO Work Phone: Start: 11-26-2024 End: 11-26-2024 [facility] medical xm&eval comprhnsv estab pt 1/> Corneal [...] DO Work Phone: Start: 05-15-2024 End: 05-15-2024 [facility] medical N-1-1&eval SnappCloudhnsv estab pt 1/> Primary open angle glaucoma [...] 11-26-2025 Glaucoma screening Diabetes: R etinopathy Screening [facility] Start: 06-04-2025 End: 06-04-2025 Patient encounter procedure 06/04/2025 1:15 PM EST Office Visit [facility] [address] [place] [id number] Mirta Teran DO [address] [place] [address] [facility] Start: 05-15-2025 Glaucoma screening Diabetes: R etinopathy Screening [facility] Start: 03-03-2025 Influenza vaccination [facility] Start: 11-26-2024 End: 11-26-2024 Patient encounter procedure [facility] Comment on above: Arrived Start: 03-03-2024 Influenza vaccination Influenza Vacc ine (#1) [facility] Start: 10-08-2020 Hemoglobin A1c measurement Diabetes: Hemoglobin A1C [facility] Start: 1991 Screening for malign ant neoplasm of breast Mammogram [facility] Start: 1970 Pneumococcal Vaccine : 65+ Years (1 of 2 - PCV) Pneumococcal Vaccine: 65+ Years (1 of 2 - PCV) [facility] Start: 1970 Urine screening for protein Diabetes: Urine Protein Screening [facility] Start: 1957 Pneumococcal Vaccine : 65+ Years (1 of 2 - PCV) Pneumococcal Vaccine: 65+ Years (1 of 2 - PCV) [facility] Start: 1950 Medicare Annual Well ness (AWV) Medicare Annual Wellness (AWV) [facility] Start: 1950 Screening for malign ant neoplasm of colon [facility] Immunofixation for Urine [facility] Renal function 1999 panel - Serum or Plasma [facility] Renal function 2000 panel - Serum or Plasma [facility] Renal function 2000 panel - Serum or Plasma [facility] Renal function 2000 panel - Serum or Plasma [facility] Renal function 2000 panel - Serum or Plasma [facility] Immunizations Immunization Date Immunization Notes Care Provider Inder burns NEGATED: Highlighted row has not occurred!06-05-2019 influenza, high dose seasonal, preservative-free Patient Objection Geneva Mary Grace Other [facility] Other Payers Date Payer Category Payer Private Health Insurance [employer] [id number] 2016 Medicare MEDICARE [id number] 1959 Medicare [id number] 1959 Unknown [id number] 1951 Unknown [id number] 2.16.840.1.468995.3.579.2. 647 1951 Unknown [id number] 2.16.840.1.657246.3.579.2. 593 1951 Unknown [id number] 2.16.840.1.373647.3.579.2. 593 1951 Unknown [id number] 2.16.840.1.468480.3.579.2. 593 1951 Unknown [id number] 2.16.840.1.349003.3.579.2. 593 1951 Unknown [id number] 2.16.840.1.745242.3.579.2. 593 1951 Unknown [id number] 2.16.840.1.084763.3.579.2. 593 1951 Unknown [id number] 2.16.840.1.214505.3.579.2. 593 1951 Unknown [id number] 2.16.840.1.857343.3.579.2. 593 1951 Unknown [id number] 2.16.840.1.216904.3.579.2. 593 1951 Unknown [id number] 2.16.840.1.927146.3.579.2. 593 1951 Unknown [id number] 2.16.840.1.937169.3.579.2. 593 1951 Unknown [id number] 2.16.840.1.151856.3.579.2. 593 1951 Unknown [id number] 2.16.840.1.114736.3.579.2. 593 1951 Unknown [id number] 2.16.840.1.958014.3.579.2. 593 1951 Unknown [id number] 2.16.840.1.029006.3.579.2. 593 1951 Unknown [id number] 2.16.840.1.892398.3.579.2. 593 1951 Unknown [id number] 2.16.840.1.316829.3.579.2. 593 1951 Unknown [id number] 2.16.840.1.126519.3.579.2. 593 1951 Unknown [id number] 2.16.840.1.918098.3.579.2. 593 1951 Unknown [id number] 2.16.840.1.197243.3.579.2. 593 1951 Unknown [id number] 2.16.840.1.471747.3.579.2. 1259 1951 Unknown [id number] 2.16.840.1.213355.3.579.2. 1259 Self-pay Self Pay [id number] Unknown Regular Insurance [id number] Social History Date Type Detail Facility Unknown if ever smoked [facility] [employer] Other Start: 05-15-2024 Sex Assigned At N [facility] [employer] Other Start: 11-23-2017 End: 09-26-2023 Tobacco smoking status NHIS Never smoked tobacco (finding) [facility] Start: 1950 Sex Assigned At Female F [facility] Start: 05-13-2024 End: 09-03-2024 Sex Female (finding) [facility] Start: 09-26-2023 Tobacco use and exposure Smokeless tobacco non-user [facility] Start: 05-15-2024 Alcoholic beverage intake Lifetime non-drinker (finding) [facility] Start: 05-15-2024 History of Social function [facility] Start: 09-26-2023 Alcohol Comment caffeine intak e: 1-2 cups per day soda/pop 1-2 cans per week [facility] Start: 05-01-2023 Gender identity Identifies as female gender (finding) [facility] Clinical Notes 04-27-2020 to 04-07-2025 Mirta Teran DO - 11/26/2024 2:00 PM Chrissy Teran, DO - 05/15/2024 1:30 PM EST Note Date & Type Note Facility 04-07-2025 Note [place] Cardiology - [facility] Subjective Claudia Estrella is a 74 [...] and dry. Neurologi (more content not included)... [facility] 11-26-2024 Note Right Eye Reliability was poor. Progression has been stable. Foveal threshold was normal. Findings include superior nasal step defect, inferior nasal step defect, central scotoma. Left Eye Reliability was borderline. Progression has been stable. Foveal threshold was normal. Findings include superior arcuate defect, inferior arcuate defect, central scotoma. [facility] 11-26-2024 History of Present illness Narrative Images [...] tears were recommended. documented in this encounter [facility] 09-16-2024 Note [place] Cardiology - [facility] Subjective Claudia Estrella is a 74 y.o. year old female patient being seen for follow up 6 mo follow up CAD, chronic diastolic heart failure, and hypertension. Had labs last month for nephrology. She only had 1 tablet left of metoprolol (50mg) and took it yesterday. Hasn't had any today. She was told by [facility] that she can't get it until . [...] Erythromycin Base Hydromorphone (more content not included)... [facility] 05-15-2024 Note Right Eye Quality was good. Scan locations included subfoveal. Progression has been stable. Findings include abnormal foveal contour, intraretinal fluid, subretinal fluid. Left Eye Quality was good. Scan locations included subfoveal. Progression has been stable. Findings include abnormal foveal contour. Notes Area of atrophy w/ retinal pigment epithelium (RPE) tear [facility] 05-15-2024 History of Present illness Narrative Images [...] tears were recommended. documented in this encounter [facility] 05-30-2023 Evaluation note Encounter Date Diagnosis Assessment [...] has adequate Iron stores. Continue oral iron. [facility] Other 07-31-2023 Evaluation note* Encounter Date Diagnosis [...] has adequate Iron stores. Continue oral iron. [facility] 02-28-2023 Evaluation note* Encounter Date Diagnosis [...] past. Will defer this to the PCP. [facility] 11-28-2022 Evaluation note* Encounter Date Diagnosis [...] an adequate Iron stores. Continue oral iron. [facility] 11-21-2022 Evaluation note* Encounter Date Diagnosis Assessment Notes Treatment Notes Treatment Clinical Notes May, CKD (chronic kidney disease) stage 4, GFR 15-29 ml/min (ICD-10 - N18.4) [facility] 07-28-2022 Evaluation note* Encounter Date Diagnosis [...] an adequate Iron stores. Continue oral iron. [facility] 03-22-2022 Evaluation note* Encounter Date Diagnosis Assessment Notes Treatment Notes Treatment Clinical Notes Aug, Hypokalemia (ICD-10 - E87.6) [facility] 03-21-2022 Evaluation note* Encounter Date Diagnosis [...] an adequate Iron stores. Continue oral iron. [facility] 01-16-2022 Evaluation note* Encounter Date Diagnosis Assessment Notes Treatment Notes Treatment Clinical Notes Jul, Hyperuricemia (ICD-1 0 - E79.0) [facility] 11-16-2021 Evaluation note* Encounter Date Diagnosis [...] an adequate Iron stores. Continue oral iron. [facility] 11-02-2020 NoteRounds at this time with [...] [facility] Maryan Lopez.[facility]:Result Comment: Electronically Signed By: Zuleyma Shin RN\.br\Date and Time Signed: 05/04/20 13:53 [id number] NoteBasic Information Cardiology Progress Subjective Cardiology consulted over weekend for chest discomfort post operatively. Her EKG was non-acute and troponin trended negative. She does have a rn clinical review and reportedly had stress testing in August [...] mg/dL High (05/04/20 12:12:00) POC Device SN: [id number] (05/04/20 12:12:00) POC Username: NESHA COTA (05/04/20 [...] prefers all testing to be performed at [facility]. Faxed notes to her primary rn clinical review's office, Dr Fish. Attempted to schedule stress testing with [facility]. Ordered: EC Stress Echo Complete w/ Contrast 2. Hypertension (I10: Essential (primary) hypertension) Continue current medications and follow up with primary rn clinical review on discharge. 3. Diabetes (E11.9: Type 2 [...] discuss this management further with her primary rn clinical review, but agreeable to starting statin for now. Patient is offered in-patient stress echocardiogram but declines as she wants to be discharged. She is offered out patient stress testing at [facility] tomorrow am and she prefers to have this done at [facility]. Per Central Scheduling at [facility], Dobutamine Stress Echo's are not performed at the facility. She will have close FU with Dr Fish to move forward with testing. D/W Dr Guzmán. Faxed info from [facility] Hospital stay to her primary rn clinical review. Attestation Discussed patient findings and plan of [...] (more content not included)...[facility] Hospital[facility] on above: Result Comment: Electronically Signed By: Trudy SUAZO CNP\.br\Date and Time Signed: 05/04/20 13:15 EST\.br\Electronically Co-Signed By: Jay Jay Ramírez MD\.br\Date and Time Co-Signed: 05/04/20 13:19 [id number] NoteIV removed. nurse windows server administrator emptied. patient and patients daughter verbalized understanding of discharge teaching. patient refused flu vaccination. patient did not verbalize any questions or concerns atthis time.[facility] Note Admission Information Admitting Physician - [...] another day versus following up with her rn clinical review and she has opted to do the latter. This is reasonable as she is chest pain-free at rest as well as on exertion. Patient is already on lisinopril, metoprolol, aspirin. Lipitor 20 mg was added for further risk reduction. She will follow-up with her primary rn clinical review Dr. Fish. Regarding her recent Ortho surgery she will do weightbearing activity as tolerated and use crutchesfor assistance with ambulation. Dr. Kushal Guzmán Hospitalist This report was transcribed using voice recognition software. Every effort was made to ensure accuracy, however, inadvertently computerized credit specialist mistakes may be present. Significant Findings POWERSCRIBE [...] pain) Ordered: Hospital Discharge Day 30 Min/Less 91071 2. Hypertension (I10: Essential (primary) hypertension) Ordered: Hospital Discharge Day 30 Min/Less 80557 3. Diabetes (E11.9: Type 2 diabetes mellitus without complications) Ordered: atorvastatin, 20 mg = 1 tab(s), Oral, Bedtime, # 30 tab(s), Refills(s) 1, Pharmacy: [facility]/pharmacy #[id number], 141.5, cm, 04/24/20 13:16:00 EDT, Height/Length Dosing, 69, kg, 05/02/20 5:50:00 EDT, Weight Dosing Hospital Discharge Day 30 Min/Less 23649 4. Acute medial meniscus tear of left knee (S83.242A: Other tear of medial meniscus, current injury, left knee, initial encounter) Ordered: Hospital Discharge Day 30 Min/Less 01238 5. Localized osteoarthritis of left knee (M17.12: Unilateral primary osteoarthritis, left knee) Ordered: Hospital Discharge Day 30 Min/Less 91395 6. No contraindication to deep vein thrombosis (DVT) prophylaxis (Z78.9: Other specified health status) Ordered: Hospital Discharge Day 30 Min/Less 40609 Bruit (R09.89: Other specified symptoms and signs [...] With When Contact Information Follow up with Corn Miller Within 1 week Additional Instructions: [place] [address]- Business (1) Additional Instructions: David Talamantes [address] [place] [phone]- [place] (1) Additional Instructions: Keep scheduled (more content not included)...[facility]:Result Comment: Electronically Signed By: Kushal GUZMÁN MD\.br\Date and Time Signed: 05/04/20 12:[id number] Amir rounded with patient earlier. CRM [...] home. CRM to follow.[facility]Comment on above:Result Comment: Electronically Signed By: Ab WU, Terri Ramirez\.br\Date and Time Signed: 05/02/20 10:06 [id number] NoteReason for Consultation Chest pain postoperatively History of Present Illness Mrs. Estrella is a very pleasant 70-year-old diabetic female with hypertension, unknown cholesterol, previously seen by rn clinical review Dr. Fish in September 2019 for what [...] testing apparently took place in a private rn clinical review office, so I am unsure whether we [...] test in September 2019 at a private rn clinical review 's office, reportedly LV dysfunction per thepatient, [...] (more content not included)...[facility] HospitalComment on above:Result Comment: Electronically Signed By: Eleuterio VIGIL, John Olson\.br\Date and Time Signed: 05/02/20 08:35 [id number] NoteBasic Information Accompanied by: Family member Source [...] 84 mg/dL (05/01/20 16:07:00) POC Device SN: [id number] (05/01/20 16:07:00) POC Username: ALEXIA HALL (05/01/20 16:07:00) Diagnostic Results EKG NSR [address]-T wave changes Images No qualifying data available. Assessment/Plan 1. Other chest pain (R07.89: Other chest pain) - possible ACS, risk factors include DM, HTN, obesity - telemetry, troponin - ASA, fasting lipid profile - consult [facility] cardiology 2. Hypertension [...] (more content not included)...[facility] HospitalComment on above:Result Comment: Electronically Signed By: JUN VIGIL, Nhung\.br\Date and Time Signed: 05/01/20 18:30 [id number] Note [id number]:127[facility] Evaluation noteNo FRM Study Course Other Evaluation note* Diagnosis Onset Date Resolution Status Anemia of renal disease acut e CKD (chronic kidney disease) stage 4, GFR 15-29 ml/min acute Hyperlipidemia acute [id number] acute Hyperuricemia acute Hypokalemia acute Microscopic hematuria acute Secondary hyperparathyroidism acute Type 2 diabetes mellitus wit h diabetic chronic kidney disease acute [facility] Work Phone: Evaluation note* Diagnosis Onset Date [...] kidney disease acute May 13, 2024 3:17pm [facility] Work Phone: Evaluation note* Diagnosis Primary open angle glaucoma (POAG) of both eyes, mild stage (CMS/HCC)- Primary 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 (CMS/HCC) Corneal scar, right eye Unspecified corneal opacity Dry eyes Unspecified tear film insufficiency documented in this encounter [facility] HealthcareEvaluation noteNo assessment information availableMarietta [facility] Hospital Work Phone: Evaluation note* Diagnosis Corneal scar, right eye- Primary Unspecified corneal opacity Dry eyes Unspecified tear film insufficiency 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 (CMS/HCC) Primary open angle glaucoma (POAG) of both eyes, mild stage documented in this encounter [facility] HealthcareEvaluation note* Diagnosis Onset Date Resolution [...] kidney disease acute January 29, 2025 11:35am [facility] Work Phone: Evaluation note* Diagnosis Primary open angle glaucoma (POAG) of both eyes, mild stage documented in this encounter [facility] HealthcareHistory general Narrative - Reported* Type [...] eye surgery 04/2021 Hospitalization History see above [facility] Other History general Narrative - Reported* Type [...] RIGHT EYE 2021 Hospitalization History see above [facility] Other History general Narrative - Reported* Type [...] HEART CATH 12/2021 Hospitalization History see above [facility] Other Reason for referral (narrative)No reason for referral information availableMarietta [facility] Hospital Work Phone: Summary Purpose Family History No [...] disease) stage 4, GFR 15-29 ml/min Hyperlipidemia [id number] Hyperuricemia Hypokalemia Microscopic hematuria Secondary hyperparathyroidism Type 2 diabetes mellitus with diabetic chronic kidney disease Chief Complaint RENAL 4 MONTH F/U Reason for Visit Anemia of renal dise ase CKD (chronic kidney disease) stage 4, GFR 15-29 ml/min Hyperlipidemia [id number] Hyperuricemia Hypokalemia Microscopic hematuria Secondary hyperparathyroidism Type [...] DATE CREATED AUTHOR AUTHOR'S ORGANIZ ATION 08/05/2021 [facility] DATE CREATED AUTHOR AUTHOR'S ORGANIZ ATION 12/16/2021 [facility] DATE CREATED AUTHOR AUTHOR'S ORGANIZ ATION 10/29/2022 [facility] DATE CREATED AUTHOR AUTHOR'S ORGANIZ ATION 11/29/2024 [facility] EPIC DATE CREATED AUTHOR AUTHOR'S ORGANIZ ATION 04/10/2025 [facility] REASON FOR VISIT (unrecogniz ed section [...] May 13, 2024 End: May 13, 2024 Floor Coverings Installer Relationship Specialty Start Date End Date Unallocated, Ara Robertson MD [address] [place] [address] PCP - General Family Medicine 08/18/23 John Perdomo MD [address] [place] [address] Referring Physician Orthopaedic Surgery 05/08/23 Floor Coverings Installer Relationship Specialty Start Date End Date Unallocated, Ara Robertson MD [facility] [place] [place] [address] PCP - General Family Medicine 08/18/23 John Perdomo MD [address] [place] [id number] Referring Physician Orthopaedic Surgery 05/08/23 Team Status: Active Member Role Status Dates oJhn Perdomo DO Primary Care Provider Active Start: August 26, 2024 Geneva Jenkins MD Attending Provider Active Start : August 26, 2024 Team Status: Inactive Member Role Status Dates John Perdomo DO Primary Care Provider Active Start: September 03, 2024 End: September 03, 2024 Geneva Jenkins MD Attending Provider Active Start : September 03, 2024 End: September 03, 2024 Floor Coverings Installer Relationship Specialty Start Date End Date Unallocated, Ara Robertson MD [address] [place] [id number] PCP - General Family Medicine 08/18/23 John Perdomo MD [address] [place] [id number] Referring Physician Orthopaedic Surgery 05/08/23 Floor Coverings Installer Relationship Specialty Start Date End Date Unallocated, Ara Robertson MD [address] [place] [id number] PCP - General Family Medicine 08/18/23 John Perdomo MD [address] [place] [address] Referring Physician Orthopaedic Surgery 05/08/23 Team Status: [...] January 29, 2025 End: January 29, 2025 Floor Coverings Installer Relationship Specialty Start Date End Date Unallocated, Ara Robertson MD [address] [place] [id number] PCP - General Family Medicine 08/18/23 John Perdomo MD [address] [place] [id number] Referring Physician Orthopaedic Surgery 05/08/23 Goals (unrecognized [...] BE BASED ON THE PRIMARY CLINICAL RECORDS. [facility]. provides no warranty or guarantee of the accuracy or completeness of information in this document.
[2025-04-10] MEDS: ALBUMIN HUMAN 25 GM/100 ML PREMIX IV (21:30)
[2025-04-10] MEDS: DORZOLAMIDE HCL 2%/TIMOLOL MALEATE 0.5% 200 DROP/10 ML BOTTLE OP (21:30)
[2025-04-10] MEDS: 0.9 % SODIUM CHLORIDE 1,000 ML 50 ML IV (21:30)
[2025-04-11] VITALS (23 sets, daily range): BP systolic 133–184; BP diastolic 47–69; PULSE 66–76; TEMP 36.7–36.9; O2SAT 91–93
--- NOTE | 2025-04-11 04:08 | PM.HP ---
HPI H&P: HPI History of Present Illness Chief complaint: ORI on CKD Narrative: Mrs. Polo is a 74-year-old female with a known diagnosis of diastolic heart failure and stage IV kidney failure. According to the patient, she developed fluid overload last week prompting the decision to double up on her diuretics hoping to relieve her decompensated heart failure. According to the patient, she lost about 7 pounds. Follow-up kidney function test showed worsening kidney failure. Baseline creatinine around 2.5 and BUN around 50. GFR is around 21. Yesterday her BUN was up to 80 and the creatinine is up to 3.35. Her GFR is down to 13. Patient denies any chest pain or shortness of breath. No fever or chills. No seizure or convulsion. Opioid HPI Opioid Management Most Recent Pain and Opioid Data: Last Pain Scale 0 08/12/23, 12:24 Last Pain Assessment 04/10/25, 20:00 Last ORT Total Score 0 04/10/25, 19:34 Last ORT Risk Category Low Risk 04/10/25, 19:34 PFSH PFS Medical History (Updated 04/11/25 @ 04:10 by Libertad Arshad MD) Orthostatic hypotension ?I95.1 - Orthostatic hypotension (ICD-10) Diastolic congestive heart failure ?I50.30 - Unspecified diastolic (congestive) heart failure (ICD-10) Type 2 diabetes mellitus ?E11.9 - Type 2 diabetes mellitus without complications (ICD-10) Cataract associated with type 2 diabetes mellitus ?E11.36 - Type 2 diabetes mellitus with diabetic cataract (ICD-10) 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 (ICD-10) Cataract ?H26.9 - Unspecified cataract (ICD-10) FH: cholecystectomy ?Z83.79 - Family history of other diseases of the digestive system (ICD-10) Tarsal tunnel syndrome of right side ?G57.51 - Tarsal tunnel syndrome, right lower limb (ICD-10) Ovarian cyst, left ?N83.202 - Unspecified ovarian cyst, left side (ICD-10) Diabetic acidosis, type II ?E11.10 - Type 2 diabetes mellitus with ketoacidosis without coma (ICD-10) Anemia ?D64.9 - Anemia, unspecified (ICD-10) HTN (hypertension) ?I10 - Essential (primary) hypertension (ICD-10) Hypothyroid ?E03.9 - Hypothyroidism, unspecified (ICD-10) Pulmonary hypertensive arterial disease ?I27.21 - Secondary pulmonary arterial hypertension (ICD-10) Macular edema ?H35.81 - Retinal edema (ICD-10) CAD (coronary artery disease) ?I25.10 - Atherosclerotic heart disease of [place] coronary artery without angina pectoris (ICD-10) Chronic kidney disease (CKD) stage G4/A1, severely decreased glomerular filtration rate (GFR) between 15-29 mL/min/1.73 square meter and albuminuria creatinine ratio less than 30 mg/g ?N18.4 - Chronic kidney disease, stage 4 (severe) (ICD-10) Surgical History (Updated 08/10/23 @ 22:01 by Cherri Bello) History of arthroscopic knee surgery ?Z98.890 - Other specified postprocedural states (ICD-10) S/P CABG x 2 ?Z95.1 - Presence of aortocoronary bypass graft (ICD-10) Family History (Updated 04/10/25 @ 19:48 by Ophelia Saleem RN) Mother Family history of CHF (congestive heart failure) Family history of COPD (chronic obstructive pulmonary disease) Family history of myocardial infarction Sister Family history of diabetes mellitus Father Family history of hypertension Family history of myocardial infarction Family history of stroke Social History (Updated 04/10/25 @ 19:49 by Ophelia Saleem RN) Within the past year, how often did you have a drink containing alcohol: never Score interpretation: A score less than 3 is consistent with normal alcohol consumption. Smoking status: Never smoker Non-prescribed substance use: denies use Highest level of school completed/degree received: some college, no degree Are you now , , , , never or living with a partner: In a typical week, how many times do you talk on the telephone with family, friends, or neighbors: twice per week How often do you get together with friends or relatives: twice per week Little interest or pleasure in doing things: not at all Feeling down, depressed, or hopeless: not at all Do you think of yourself as: straight/heterosexual Gender Identity: female Meds Home Medications and Allergies Home Medications ?Medication ?Instructions ?Recorded ?Confirmed ?Type allopurinol 100 mg tablet 100 mg PO DAILY 08/10/23 04/10/25 History amlodipine 10 mg tablet 10 mg PO DAILY 08/10/23 04/10/25 History atorvastatin 40 mg tablet 40 mg PO .qhs 08/10/23 04/10/25 History bumetanide 2 mg tablet 4 mg PO BID 08/10/23 04/10/25 History dorzolamide 22.3 mg-timolol 6.8 1 drp ophthalmic (eye) BID 08/10/23 04/10/25 History mg/mL eye drops doxazosin 4 mg tablet 6 mg PO BID 08/10/23 04/10/25 History ferrous sulfate 325 mg (65 mg 325 mg PO .EVERY OTHER DAY 08/10/23 04/10/25 History iron) tablet hydralazine 50 mg tablet 50 mg PO BID 08/10/23 04/10/25 History insulin glargine 100 unit/mL (3 10 unit subcut DAILY PRN 08/10/23 04/10/25 History mL) subcutaneous pen (Basaglar hyperglycemia KwikPen U-100 Insulin) isosorbide mononitrate 30 mg 30 mg PO DAILY 08/10/23 04/10/25 History tablet,extended release 24 hr metolazone 2.5 mg tablet 2.5 mg PO .TWICE A WEEK PRN edema 08/10/23 04/10/25 History metoprolol tartrate 50 mg tablet 75 mg PO Q12H 08/10/23 04/10/25 History aspirin 81 mg tablet,delayed 81 mg PO DAILY 04/10/25 04/10/25 History release (Adult Low Dose Aspirin) levothyroxine 75 mcg tablet 75 mcg PO .acb 04/10/25 04/10/25 History potassium 20 mg chewable tablet 40 mg PO TID 04/10/25 04/10/25 History Allergies Allergy/AdvReac Type Severity Reaction Status Date / Time azithromycin Allergy Severe Anaphylaxis Verified 08/10/23 22:04 hydromorphone (From Dilaudid) Allergy Intermediate Vomiting Verified 08/10/23 22:04 spironolactone Allergy Intermediate Hives Verified 08/10/23 22:04 Penicillins Allergy Unknown Hives Verified 08/10/23 22:04 Exam Narrative Exam Narrative: [pt is awake and alert. oriented to place, time and person HEENT: [place] conjunctiva and NL buccal mucosa Neck: Supple, no tenderness Endocrine: No Thyromegaly. Vascular: No JVD or carotid bruit. Lymphatic: No cervical lymphadenopathy. Chest: CTA no DTP. Heart RRR, no extra sound or murmur. Abd: Soft, no tenderness, no rebound and no rigidity. Increase abd girth therefore clinically I could not exclude the possibility of intra abd mass or organomegaly. LE: No cyanosis or clubbing, no varices or edema. Neuro: A A O. Nl speech, comprehension and attention. Nl and symetrical motor and tone examination through out. []] Constitutional Vital Signs, click to edit/add: Last Vital Signs Temp 98.2 F 04/11/25 03:39 Pulse 71 04/11/25 04:05 Resp 18 04/11/25 03:39 BP 149/69 H 04/11/25 03:39 Pulse Ox 92 L 04/11/25 03:39 O2 Del Method Room Air 04/11/25 03:39 Results Labs Labs: Short CBC 04/10/25 Range/Units 16:00 WBC 8.4 (4.0-11.0) 10^3/uL Hgb 9.6 L (12.0-16.0) g/dL Hct 28.5 L (36.0-48.0) % Plt Count 159 (150-450) 10^3/uL BMP 04/10/25 16:00 Sodium 139 Potassium 3.9 Chloride 101 Carbon Dioxide 27.1 BUN 81.0 H* Creatinine 3.21 H Glucose 185 H Calcium 9.2 Urine 04/10/25 Range/Units 16:00 Urine Color Lt. yellow (YELLOW) Urine Clarity Clear (CLEAR) Urine pH 5.0 (5.0-9.0) Ur Specific [place] 1.015 (1.005-1.025) Urine Protein 100 A (NEG/TRACE) mg/dL Urine Glucose (UA) Negative (NEGATIVE) mg/dL Assessment and Plan Assessment and Plan (1) Acute kidney injury superimposed on stage 4 chronic kidney disease: Plan Acute on chronic kidney failure. As I stated above, the patient has stage IV kidney failure with a baseline creatinine around 2.5. Baseline BUN is around 50. Yesterday her BUN is up to 80 and the creatinine is up to 3.2. GFR is down to 14. Patient lost 7 pounds over the last week. Elevated BNP but no clinical evidence of fluid overload. No crackles. No lower extremities edema. Chest x-ray is negative for any fluid overload. I suspect that her ORI is related to intravascular depletion while patient taking multiple blood pressure medications and diuretics causing her to have hypotension on arrival. I had excepted patient to the medical floor. I held her diuretics and BP meds due to hypotension and ORI Starting patient on IV fluid infusion. Her albumin is low. 1 dose of albumin infusion. Monitor kidney function. Kidney function had improved overnight. Requested ultrasound of the kidney rule out obstructive uropathy and that came back negative for obstructive uropathy. I requested UA to see if patient has RBC or protein that may suggest acute glomerulonephritis. Patient has protein of 100 mg/dL which is lower than baseline. Patient does not have RBC making the possibility of acute glomerulonephritis less likely. Request urine sodium level. Diastolic heart failure. History of CAD and CABG BNP is elevated which is likely secondary to worsening kidney failure. Clinically patient does not have fluid overload. Hypokalemia, potassium supplementation Anemia, no evidence of acute blood loss. This could be anemia of chronic disease secondary to CKD stage IV Patient does not qualify for erythropoietin injection due to hemoglobin above 9.5. Requested iron testing, ferritin, B12 and folate. Patient will likely require to have anemia workup to be done in the outpatient setting to be handled by PCP in collaboration with other needed outpatient providers. This may include but not limited to EGD, colonoscopy, referral to see hematology and other needed age-appropriate cancer screening. Diabetes Resume preadmission insulin. Sliding scale coverage. Chronic, subacute medical conditions not listed above, abnormal labs and imaging. These would need to be addressed. Could be addressed later on or in the outpatient setting by PCP collaboration with other needed outpatient providers when time and condition are appropriate. I discussed her case with her daughter.
[2025-04-11] MEDS: LEVOTHYROXINE SODIUM 75 MCG TABLET PO (05:39)
[2025-04-11 06:03] LABS: Hematocrit 26.6 % (36.0-48.0); Hemoglobin 8.8 g/dL (12.0-16.0); Immature Granulocytes Abs Auto 0.02 10^3/uL (0.00-0.03); Immature Granulocytes Pct Auto 0.3 % (0.0-0.5); Lymphocytes Absolute Auto 1.0 10^3/uL (1.2-3.8); Mean Corpuscular HGB Conc 33.1 g/dL (29.9-35.2); Mean Corpuscular Hemoglobin 29.3 pg (26.7-34.0); Mean Corpuscular Volume 88.7 fL (81.0-99.0); Platelet Count 137 10^3/uL (150-450); Red Blood Count 3.00 10^6/uL (4.20-5.40); White Blood Count 7.8 10^3/uL (4.0-11.0)
[2025-04-11 06:18] LABS: Iron 39.0 ug/dL (50.0-170.0); Percent Iron Saturation 18.0 %; Total Iron Binding Capacity 217.0 ug/dL (250.0-450.0)
[2025-04-11 06:20] LABS: Alanine Aminotransferase 21 U/L (14-59); Albumin Globulin Ratio 1.0; Albumin Level 3.6 g/dL (3.4-5.0); Alkaline Phosphatase 76 U/L (46-116); Anion Gap 12.7; Aspartate Amino Transferase 13 U/L (15-37); Calcium 9.0 mg/dL (8.5-10.1); Carbon Dioxide 27.4 mmol/L (21.0-32.0); Chloride 100 mmol/L (98-107); Estimated GFR (African America 19 (>=60 mL/min/1.73m^2); Estimated GFR (Non-African Ame 16 (>=60 mL/min/1.73m^2); Globulin 3.7 g/dL; Glucose 117 mg/dL (74-106); Potassium 3.1 mmol/L (3.5-5.1); Sodium 137 mmol/L (136-145); Total Protein 7.3 g/dL (6.4-8.2)
[2025-04-11 06:23] LABS: Blood Urea Nitrogen 76.0 mg/dL (7.0-18.0)
[2025-04-11 06:34] LABS: Ferritin 144.0 ng/mL (8.0-252.0)
--- NOTE | 2025-04-11 07:15 | CM.NOTE ---
Rounds made with Dr. Arshad, discussed plan of care with pt and daughter. No discharge today. Pt inpatient status.
[2025-04-11] MEDS: DORZOLAMIDE HCL 2%/TIMOLOL MALEATE 0.5% 200 DROP/10 ML BOTTLE OP ×2 (08:30→20:41)
[2025-04-11] MEDS: HEPARIN SODIUM (PORCINE) 5,000 UNIT/ML VIAL 5000 UNIT SUBQ ×2 (08:31→20:41)
[2025-04-11] MEDS: METOPROLOL TARTRATE 25 MG TABLET PO ×2 (08:32→20:42)
[2025-04-11] MEDS: ISOSORBIDE MONONITRATE 30 MG TAB.ER.24H PO (08:32)
[2025-04-11] MEDS: ASPIRIN 81 MG TABLET.DR PO (08:32)
[2025-04-11] MEDS: ALLOPURINOL 100 MG TABLET PO (08:32)
[2025-04-11] MEDS: POTASSIUM CHLORIDE 10 MEQ ER TABLET 40 MEQ PO (08:32)
--- NOTE | 2025-04-11 11:26 | SWNOTE1 ---
Important Message from [employer] reviewed and discussed with patient. Pt. verbalized understanding and signed the form. Original given to patient and copy placed in patient?s chart.
--- NOTE | 2025-04-11 11:28 | SWNOTE1 ---
SW met with pt to discuss dc needs. Pt's family was in room as well. Pt is independent at home and has no anticipated discharge needs. Pt does not use any DME at home and no services coming in. Pt plans to return home at discharge with . SW to follow as needed.
[2025-04-11] MEDS: 0.9 % SODIUM CHLORIDE 1,000 ML 50 ML IV (14:41)
[2025-04-11 16:32] LABS: Anion Gap 12.4; Blood Urea Nitrogen 72.0 mg/dL (7.0-18.0); Calcium 8.5 mg/dL (8.5-10.1); Carbon Dioxide 26.7 mmol/L (21.0-32.0); Chloride 102 mmol/L (98-107); Estimated GFR (African America 19 (>=60 mL/min/1.73m^2); Estimated GFR (Non-African Ame 15 (>=60 mL/min/1.73m^2); Glucose 198 mg/dL (74-106); Potassium 4.1 mmol/L (3.5-5.1); Sodium 137 mmol/L (136-145)
[2025-04-11] MEDS: AMLODIPINE BESYLATE 5 MG TABLET PO (21:08)
[2025-04-11] MEDS: HYDRALAZINE HCL 25 MG TABLET 50 MG PO (23:30)
[2025-04-12] VITALS (8 sets, daily range): BP systolic 144–184; BP diastolic 54–69; PULSE 62–74; TEMP 36.3–36.8; O2SAT 90–95
[2025-04-12 06:08] LABS: Vitamin B12 589 pg/mL (232-1245)
[2025-04-12 06:27] LABS: Hematocrit 25.6 % (36.0-48.0); Hemoglobin 8.5 g/dL (12.0-16.0); Mean Corpuscular HGB Conc 33.2 g/dL (29.9-35.2); Mean Corpuscular Hemoglobin 29.4 pg (26.7-34.0); Mean Corpuscular Volume 88.6 fL (81.0-99.0); Platelet Count 141 10^3/uL (150-450); Red Blood Count 2.89 10^6/uL (4.20-5.40); White Blood Count 7.2 10^3/uL (4.0-11.0)
[2025-04-12 06:35] LABS: Anion Gap 13.7; Blood Urea Nitrogen 70.0 mg/dL (7.0-18.0); Calcium 8.7 mg/dL (8.5-10.1); Carbon Dioxide 27.0 mmol/L (21.0-32.0); Chloride 104 mmol/L (98-107); Estimated GFR (African America 21 (>=60 mL/min/1.73m^2); Estimated GFR (Non-African Ame 17 (>=60 mL/min/1.73m^2); Glucose 113 mg/dL (74-106); Potassium 3.7 mmol/L (3.5-5.1); Sodium 141 mmol/L (136-145)
[2025-04-12] MEDS: LEVOTHYROXINE SODIUM 75 MCG TABLET PO (07:15)
[2025-04-12] MEDS: HYDRALAZINE HCL 25 MG TABLET 50 MG PO (08:30)
[2025-04-12] MEDS: METOPROLOL TARTRATE 50 MG TABLET PO (08:30)
[2025-04-12] MEDS: ALLOPURINOL 100 MG TABLET PO (08:30)
[2025-04-12] MEDS: HEPARIN SODIUM (PORCINE) 5,000 UNIT/ML VIAL 5000 UNIT SUBQ (08:30)
[2025-04-12] MEDS: ASPIRIN 81 MG TABLET.DR PO (08:30)
[2025-04-12] MEDS: AMLODIPINE BESYLATE 5 MG TABLET 10 MG PO (08:30)
[2025-04-12] MEDS: ISOSORBIDE MONONITRATE 30 MG TAB.ER.24H PO (08:30)
[2025-04-12] MEDS: DORZOLAMIDE HCL 2%/TIMOLOL MALEATE 0.5% 200 DROP/10 ML BOTTLE OP (08:30)
--- NOTE | 2025-04-12 09:57 | P.DS_ITS ---
DS: Providers Provider Date of admission: 04/10/25 19:25 Primary care physician: ROCCO GALINDO DO DS: Diagnosis Discharge Diagnosis (1) Acute kidney injury superimposed on stage 4 chronic kidney disease: Plan As listed above, below and others that are not listed DS: Summary Hospital Course Hospital Course: Mrs. Polo is a 74-year-old female who was sent to the emergency room for admission after she was found to have acute kidney failure on an outpatient blood work. Acute on chronic kidney failure. As I stated above, the patient has stage IV kidney failure with a baseline creatinine around 2.5. Baseline BUN is around 50. Yesterday her BUN is up to 80 and the creatinine is up to 3.35. GFR is down to 14. Patient lost 7 pounds over the last week. Elevated BNP but no clinical evidence of fluid overload. No crackles. No lower extremities edema. Chest x-ray is negative for any fluid overload. I believe that her ORI is related to intravascular depletion while patient taking multiple blood pressure medications and diuretics causing her to have hypotension on arrival. Her blood pressure systolically was 99 highly suggestive of volume depletion. Patient was taking Bumex 4 mg in the morning and 4 mg in the evening as well as metolazone daily. I had excepted patient to the medical floor. I held her diuretics and BP meds due to hypotension and ORI (systolic blood pressure was as low as 99 ) Started patient on IV fluid infusion. Her albumin is low. 1 dose of albumin infusion. Monitor kidney function. Kidney function had improved overnight. Requested ultrasound of the kidney rule out obstructive uropathy and that came back negative for obstructive uropathy. I requested UA to see if patient has RBC or protein that may suggest acute glomerulonephritis. Patient has protein of 100 mg/dL which is lower than baseline. Patient does not have RBC making the possibility of acute glomerulonephritis less likely. Her kidney function improved. BUN is down to 70. Creatinine is down to 2.73 which is not far from baseline. Blood pressure started to improve and climb up. She was restarted back on some of her blood pressure medications. Patient is urging to be restart her back on diuretics although thus far, there is no clinical evidence of fluid overload. Patient is adamantly requesting to be discharged home. She is not willing to stay any longer despite my strong recommendation to keep her for at least another day to monitor her vital signs and the kidney function while reintroducing some of her BP meds. Patient has an appointment with Dr. Fish on Monday. Recommend BMP on Monday for Dr. Fish assessment of her volume status. Her daughter is in support of her decision to resume taking Bumex. Patient is to follow-up with Dr. Brody. Diastolic heart failure. History of CAD and CABG BNP is elevated which is likely secondary to worsening kidney failure. Clinically patient does not have fluid overload. Patient had an echo in October 2024 which showed normal ejection fraction but possible diastolic dysfunction. Hypertension requiring multiple blood pressure agents from multiple categories including calcium ranjit, beta-ranjit, alpha-ranjit, ARB and diuretics. I suspect that the patient may have secondary hypertension such as renal artery stenosis, hyperaldosterenemia and/or pheochromocytoma which is less likely I would recommend investigation for secondary hypertension to be completed in the outpatient setting. Given her ongoing hypokalemia despite having stage IV kidney failure I would highly suspect that patient does have hyperaldosteronism. Considered addition of aldosterone inhibitor such as spironolactone to be initiated with close monitoring of her potassium level Meanwhile I requested to check metanephrine, aldosterone and renin level. If aldosterone/renin is more than 20 that would be diagnostic for hyperaldosterenemia I would recommend patient to have arterial renal duplex to rule out renal artery stenosis that could be done in the outpatient setting Unfortunately, patient stated that she is allergic to spironolactone and would not be able to start spironolactone. Hypokalemia, potassium supplementation Once again given the resistant hypertension in the setting of hypokalemia I highly suspect that patient has hyperaldosteronemia. I would recommend the initiation of aldosterone inhibitor pending aldosterone and renin level. Close monitoring of potassium level would need to be taking care of. Could be addressed in the outpatient setting given the patient's request to be discharged home today. Unfortunately, patient stated that she is allergic to spironolactone. Anemia, no evidence of acute blood loss. This could be anemia of chronic disease secondary to CKD stage IV Patient does not qualify for erythropoietin injection due to hemoglobin above 9.5. Requested iron testing, ferritin, B12 and folate. Iron study came back consistent with anemia of chronic disease as well as severe folic acid deficiency. Patient will be started folate supplementation. Consider the initiation of erythropoietin if her hemoglobin drops below 8.5. This is to be done in the outpatient setting. Patient will likely require to have anemia workup to be done in the outpatient setting to be handled by PCP in collaboration with other needed outpatient providers. This may include but not limited to EGD, colonoscopy, referral to see hematology and other needed age-appropriate cancer screening. Diabetes Resume preadmission insulin. Sliding scale coverage. Chronic, subacute medical conditions not listed above, abnormal labs and imaging. These would need to be addressed. Could be addressed later on or in the outpatient setting by PCP collaboration with other needed outpatient providers when time and condition are appropriate. Patient has multiple complex medical issues as listed above and others that are not listed. Patient is feeling great and requesting to be discharged home today. She is not willing to stay any longer for any monitoring, testing or treatment despite my recommendation to stay for at least another day or 2 to monitor her kidney function, electrolytes and her blood pressure specifically after I reintroduced some of her BP meds. Patient again is requesting to be discharged home stating that she has an appointment with Dr. Fish on Monday. At this time, I do not have any legal Justification to extend inpatient hospitalization against her well and desire to be discharged home. Patient however will require close and frequent monitoring as well as additional work-up, investigation and therapeutic intervention that could take place from this point on post discharge. That is to prevent relapse, decompensation, rehospitalization and other medical implications.. I instructed patient to ask her primary care doctor to obtain [facility] record entirely to address abnormalities seen on labs and imaging that I have and have not addressed during this hospitalization, follow-up on pending blood work, imaging and pathology is if available and to follow-up on needed medical care in the outpatient setting. Time Spent with Patient Time attestation: Total time spent providing and/or coordinating discharge services: Time spent: greater than 30 minutes Exam Narrative Exam Narrative: [pt is awake and alert. oriented to place, time and person HEENT: [place] conjunctiva and NL buccal mucosa Neck: Supple, no tenderness Endocrine: No Thyromegaly. Vascular: No JVD or carotid bruit. Lymphatic: No cervical lymphadenopathy. Chest: CTA no DTP. Heart RRR, no extra sound or murmur. Abd: Soft, no tenderness, no rebound and no rigidity. Increase abd girth therefore clinically I could not exclude the possibility of intra abd mass or organomegaly. LE: No cyanosis or clubbing, no varices or edema. Neuro: A A O. Nl speech, comprehension and attention. Nl and symetrical motor and tone examination through out. []] Constitutional Vital Signs, click to edit/add: Last Vital Signs Temp 98.3 F 04/12/25 07:55 Pulse 73 04/12/25 08:00 Resp 18 04/12/25 07:55 BP 144/54 H 04/12/25 07:55 Pulse Ox 91 L 04/12/25 07:55 O2 Del Method Room Air 04/12/25 07:55 DS: Data Data Completed and Pending Labs on day of discharge: Labs from last 24 hours 04/12/25 04/11/25 04/11/25 05:53 15:58 11:15 WBC 7.2 RBC 2.89 L Hgb 8.5 L Hct 25.6 L MCV 88.6 MCH 29.4 MCHC 33.2 RDW 14.5 Plt Count 141 L MPV 11.4 Sodium 141 137 Potassium 3.7 4.1 Chloride 104 102 Carbon Dioxide 27.0 26.7 Anion Gap 13.7 12.4 BUN 70.0 H 72.0 H Creatinine 2.73 H 2.97 H Est GFR ( Amer) 21 L 19 L Est GFR (Non-Af Amer) 17 L 15 L BUN/Creatinine Ratio 25.6 24.2 Glucose 113 H 198 H Calcium 8.7 8.5 Vitamin B12 Folate POC Glucose 198 H 04/11/25 05:07 WBC RBC Hgb Hct MCV MCH MCHC RDW Plt Count MPV Sodium Potassium Chloride Carbon Dioxide Anion Gap BUN Creatinine Est GFR ( Amer) Est GFR (Non-Af Amer) BUN/Creatinine Ratio Glucose Calcium Vitamin B12 589 Folate 2.5 L POC Glucose Discharge Plan Discharge Disposition: Home, Self-Care Condition: Good Discharge Medications: New potassium chloride 20 mEq tablet extended release 20 meq PO DAILY Qty: 30 0RF Continued amlodipine 10 mg tablet 10 mg PO DAILY hydralazine 50 mg tablet 50 mg PO BID isosorbide mononitrate 30 mg tablet extended release 24 hr 30 mg PO DAILY allopurinol 100 mg tablet 100 mg PO DAILY atorvastatin 40 mg tablet 40 mg PO .qhs dorzolamide-timolol 22.3-6.8 mg/mL drops 1 drp OPHTHALMIC (EYE) BID Patient Comments: both eyes metolazone 2.5 mg tablet 2.5 mg PO .TWICE A WEEK PRN (Reason: edema) ferrous sulfate 325 mg (65 mg iron) tablet 325 mg PO .EVERY OTHER DAY insulin glargine [Basaglar KwikPen U-100 Insulin] 100 unit/mL (3 mL) insulin pen 10 unit SUBCUT DAILY PRN (Reason: hyperglycemia) levothyroxine 75 mcg tablet 75 mcg PO .acb aspirin [Adult Low Dose Aspirin] 81 mg tablet,delayed release (DR/EC) 81 mg PO DAILY Changed bumetanide 2 mg tablet 2 mg PO DAILY Qty: 0 0RF metoprolol tartrate 50 mg tablet 50 mg PO Q12H Qty: 0 0RF Discontinued doxazosin 4 mg tablet 6 mg PO BID potassium 20 mg tablet,chewable 40 mg PO TID Print Language: Greek Activity Restrictions/Additional Instructions: I may not have addressed or treated all of your medical illnesses or the abnormal blood work or imaging studies during this hospitalization. Please ask your primary care provider to obtain [facility] records entirely to follow up on all of the abnormal physical, laboratory, and imaging findings that I have not addressed. Please return back to the emergency room or seek medical attention if your symptoms worsen or return. Please follow-up with Dr. Brody in the [facility]. I would recommend that you get BMP every week for the next 4 weeks to to monitor your potassium and kidney function to be handled and monitored by your primary care doctor, heart and kidney specialist. Starting this coming Monday I would like you to have a BMP at Dr. Fish's office before your appointment with him Discharging you from [facility] does not mean that your medical care ends here and now. You may still need additional monitoring, work up, investigation, and treatment plan to be handled from this point on by out patient providers including your primary care provider and specialists. For any medication question, please contact your retail pharmacist or your primary care provider. Thank you. Forms: Portal Instructions Referrals: MYRANDA BRODY [Physician, Unknown] ROCCO GALINDO DO [Primary Care Provider, Family Practice] KARTHIK FISH [Physician, Cardiology]
--- NOTE | 2025-04-14 09:48 | PC.NURSE ---
Follow up appt. with Dr. Ramos at [place] [facility] on 04/15 @ 2:20pm Appt. with Dr. Jenkins (nephrology) on 05/26 @ 2:45pm No answer at PCP office Dr. Perdomo
--- NOTE | 2025-04-14 14:15 | CM.DCFOLLOWU ---
Person spoke with: Claudia How are you feeling? Better How is your pain? No pain Did you understand your discharge instructions? Yes Do you have any questions about your discharge instructions? No Were you given any prescriptions at discharge? Yes Were you able to get your prescriptions filled? Yes Do you understand how to take your medications as ordered? Yes Do you have any questions about your follow up appointment and do you plan to keep your follow up appointment? No questions at this time. Patient was given appt information for and Gregory's office. Is there anything else that you would like to discuss? No Questions/Comments/Concerns/Other:
[2025-04-16 07:08] LABS: Aldosterone LCMS, Serum 11.0 ng/dL (0.0-30.0)
[2025-04-17 12:10] LABS: Renin Activity, Plasma 4.737 ng/mL/hr (0.167-5.380)
== END 2025-04-12 11:17 | disposition home or self-care (01) | DRG 683 ==
LOC: ER 17:43 → MS 19:28
PROVIDERS: Admitting Provider Internal Medicine; Emergency Provider Student in an Organized Health Care Education/Training Program; PCP Family Medicine; Visit Provider Internal Medicine
DX: N17.9 Acute kidney failure, unspecified (principal); I13.0 Hypertensive heart and chronic kidney disease with heart failure and stage 1 through stage 4 chronic kidney disease, or unspecified chronic kidney disease; I50.32 Chronic diastolic (congestive) heart failure; N18.4 Chronic kidney disease, stage 4 (severe); E11.22 Type 2 diabetes mellitus with diabetic chronic kidney disease; E11.36 Type 2 diabetes mellitus with diabetic cataract; I27.21 Secondary pulmonary arterial hypertension; I25.10 Atherosclerotic heart disease of native coronary artery without angina pectoris; E03.9 Hypothyroidism, unspecified; Z79.890 Hormone replacement therapy; Z79.4 Long term (current) use of insulin; Z79.82 Long term (current) use of aspirin; Z79.51 Long term (current) use of inhaled steroids; Z79.899 Other long term (current) drug therapy; E87.6 Hypokalemia; D64.9 Anemia, unspecified; I95.9 Hypotension, unspecified; E26.9 Hyperaldosteronism, unspecified; D63.1 Anemia in chronic kidney disease
CPT/HCPCS: 36415; 71046; 76775; 80048; 80076; 81001; 82088; 82607; 82728; 82746; 83540; 83550; 83735; 83835; 83880; 84244; 84484; 85025; 85027; 93005; 99285; J1644; P9046

== ENCOUNTER 2025-04-15 16:46 | Outpatient (RCR) | payer MEDICARE, OTHER, SELFPAY ==
--- OUTSIDE RECORDS SUMMARY | 2024-11-28 09:00 | XMS_ITS ---
Author Organization [facility] in [place] Address [address] [place] [address] Care Team Providers Care Financial Accounting Manager Name Role Phone John Perdomo Primary Care Provider REASON FOR VISIT MCW Encounters Encounter Location Date Provider Diagnosis [facility] [address] [place] [address] 11/28/2024 John Perdomo Plan Of Treatment Next Appt Details Provider Name:John browne, 06/11/2025 01:00:00 PM, [address] [place], [address], Progress Notes * Claudia POLO EDOB:[birth year] (74 yo F)Acc No.[id number]:11/28/2024 UNLOCKED PROGRESS NOTE Progress Note Patient: Amrik BECKERness Conklin Provider: Hayden Perdomo DO :1950 A ge:74 Y S ex:Female Date:11/28/2024 [id number] Subjective: * Chief Complaints: * 1 . MCW. * Medical History: Objective: * Vitals: Assessment: Plan: * Treatment: * * Electronic signature of Hunter Perdomo DO, [id number] on 04/15/2025 at 03:22 PM EDT Sign off status: Pending Visit Status: R /S (Rescheduled) * Provider: Hayden Perdomo, DO Date: 0 11/28/2024 Generated for Dominik browne/Jeremiah/Mario on: 1 03:22 PM EDT
--- OUTSIDE RECORDS SUMMARY | 2025-04-07 15:00 | XMS_ITS | Encounter Summary ---
Author Organization [facility] Address [address] [place] [address] Care Team Providers Care Ad Terminal Makeup Operator Name Role Phone John Perdomo DO Primary Care Provider [phone] Encounter Details Date Type Department Care Team (Late st Contact Info) Description 04/07/2025 3:00 PM EDT Office Visit [facility] [address] [place] [address] Bran Fish MD [address] [facility] [address] [facility] [place] [address] Acute on chronic diastolic congestive heart failure (CMS/HCC) (Primary Dx); Coronary artery disease involving [place] coronary artery of [place] heart without angina pectoris; Essential (primary) hypertension; History of coronary artery bypass surgery; Stage 4 chronic kidney disease (CMS/HCC) Social History Tobacco Use Types Packs/Day Years Used Date Smoking Tobacco: Never Smokeless Tobacco: Never Alcohol Use Standard Drinks/Week Comments Not Currently 0 (1 standard drink = 0.6 oz pur e alcohol) [place] Safety & Environment Answer Date Rec orded Fear of Current or Ex-Partner Not on file Emotionally Abused Not on file 08/24/2023 Physically Abused Not on file 08/24/2023 Sexually Abused Not on file 08/24/2023 Physically or Sexually Abused Not on file Comments Unknown Sex and Gender Information Value Date Recorded Sex Assigned at Female 05/19/2022 6:11 PM EST Legal Sex Female 12:22 AM EDT Gender Identity Female 05/19/2022 6:11 PM EST Sexual Orientation Heterosexual or Straight 05/03 6:11 PM EST documented as of this encounter Last Filed Vital Signs Vital Sign Reading Time Taken Comments Blood Pressure 153/60 04/07/2025 3:58 PM EDT Pulse 73 04/07/2025 3:58 PM EDT Temperature - - Respiratory Rate - - Oxygen Saturation 96% 04/07/2025 3:58 PM EDT Inhaled Oxygen Concentration - - Weight 57.6 kg (127 lb) 04/07/2025 3:58 PM EDT Height 142.2 cm (4' 8 ) 04/07/2025 3:58 PM EDT Body Mass Index 28.47 04/07/2025 3:58 PM EDT documented in this encounter Functional Status * BP Answer Date of Assessment Author 153/60 04/07/2025 3:58 PM EDT Mounika Morgan MA * Pulse Answer Date of Assessment Author 73 04/07/2025 3:58 PM EDT Mounika Morgan MA * Patient Position Answer Date of Assessment Author Sitting 04/07/2025 3:58 PM EDT Mounika Morgan MA * BP Answer Date of Assessment Author 153/60 04/07/2025 3:58 PM EDT Mounika Morgan MA * Pulse Answer Date of Assessment Author 73 04/07/2025 3:58 PM EDT Mounika Morgan MA * SpO2 Answer Date of Assessment Author 96 04/07/2025 3:58 PM EDT Mounika Morgan MA * BP Location Answer Date of Assessment Author Left arm 04/07/2025 3:58 PM EDT Mounika Morgan MA * Patient Position Answer Date of Assessment Author Sitting 04/07/2025 3:58 PM EDT Mounika Morgan MA documented as of this encounter Progress Notes * Bran Fish MD - 04/07/2025 3:00 PM EDT Images from the original note were not included. [place] [facility] Subjective Claudia Polo is a 74 y.o. year old female patient being seen for a 6 month follow up with Echo. Patient states she is not feeling very, difficulty breathing [place], fatigue, 5 pound weight gain in the last 3 days. Patient states if she uses her arms to do anything it makes her feel nauseated. Patient complains of increased weight gain in her abdomen, coughing, and a whistling sound with breathingout. Patient had dexa scan which showed osteoporosis in her hips she would like to know if she can safety take Evenity infusion. Patient Active Problem List Diagnosis Coronary arteriosclerosis Heart murmur Hypertensive disorder Kidney disease Recurrent herpes simplex Stage 4 chronic kidney disease (CMS/HCC) Type 2 diabetes mellitus (CMS/HCC) Chronic diastolic heart failure (CMS/HCC) Benign essential hypertension Glaucoma Goiter Orthostatic hypotension Corneal scar, right eye Dry eyes 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 (CMS/HCC) Primary open angle glaucoma (POAG) of both eyes, mild stage Hyperlipidemia Hyperuricemia Hypokalemia Microscopic hematuria Nontoxic multinodular goiter Secondary hyperparathyroidism Family History Problem Relation Name Age of Onset Heart attack Mother Heart failure Mother Heart attack Father Social History Tobacco Use Smoking status: Never Smokeless tobacco: Never Substance Use Topics Alcohol use: Not Currently Drug use: Never HPI Claudia is seen in follow-up. She is a 74-year-old woman with prior history of hypertension and diabetes. She was previously evaluated in cardiology clinic because of symptoms of angina. Her medications were optimized. She has chronic kidney disease. Despite optimal medical therapy she continues to have symptoms of unstable angina. Cardiac catheterization in July 2020 showed severe three-vessel coronary artery disease. Sheunderwent CABG on 07/13/2020. She developed postoperative atrial [...] to taking it 6 mg twice daily. Today she is seen in follow-up. She has been having significant shortness of breath on exertion, volume overload specially in her belly and in her legs. No chest pain. Her blood pressure is uncontrolled. NYHA class III. She has on and off coughing. No fever. Review of Systems Constitutional: Positive for decreased appetite, malaise/fatigue and weight gain. Cardiovascular: Positive for dyspnea on exertion and leg swelling. Respiratory: Positive for cough, shortness of breath and wheezing. All other systems reviewed and are negative. Objective Visit Vitals BP 153/60 (BP Location: Left arm, Patient Position: Sitting) Pulse 73 Ht 1.422 m (4' 8 ) Wt 57.6 kg (127 lb) SpO2 96% BMI 28.47 kg/m?? Smoking Status Never BSA 1.51 m?? Physical Exam Constitutional: Appearance: She is well-developed. [...] General: Bowel sounds are normal. There is distension. Palpations: Abdomen is soft. Tenderness: There is no abdominal tenderness. Musculoskeletal: General: No swelling. Cervical back: Neck supple. Right lower le+ Pitting Edema present. Left lower le+ Pitting Edema present. Skin: General: Skin is warm and dry. [...] AT BEDTIME, Disp: 90 tablet, Rfl: 3 doxazosin (Cardura) 4 mg tablet, TAKE 1 AND 1/2 TABLETS BY MOUTH TWICE A DAY, Disp: 270 tablet, Rfl: 3 ergocalciferol (Vitamin D-2) 1.25 MG (27831 UT) capsule, Take 1 capsule by mouth 1 (one) time per week., Disp: , Rfl: ferrous sulfate 325 (65 Fe) MG tablet, TAKE 1 TABLET BY MOUTH EVERY OTHER DAY FOR 90 DAYS, Disp: , Rfl: hydrALAZINE (Apresoline) 50 mg tablet, TAKE 1 TABLET BY MOUTH TWO TIMES DAILY., Disp: 180 tablet, Rfl: 0 insulin glargine (Lantus) 100 unit/mL (3 mL) pen, Inject under the skin., Disp: , Rfl: isosorbide mononitrate ER (Imdur) 30 mg 24 hr tablet, Take 1 tablet (30 mg) by mouth once daily as directed. Do not crush or chew., Disp: 90 tablet, Rfl: 3 levothyroxine (Synthroid, Levoxyl) 50 mcg tablet, Take 1 tablet by mouth in the morning. (Patient taking differently: Take 75 mcg by mouth in the morning.), Disp: , Rfl: metOLazone (Zaroxolyn) 2.5 mg tablet, TAKE 1 TABLET BY MOUTH IF NEEDED FOR SWELLING OR WEIGHT GAIN (Patient taking differently: Take 2.5 mg by mouth if needed.), Disp: 90 tablet, Rfl: 1 metoprolol tartrate (Lopressor) 50 mg tablet, Take 1.5 tablets (75 mg) by mouth in the morning and at bedtime., Disp: 270 tablet, Rfl: 3 midodrine (Proamatine) 5 mg tablet, Take 1 tablet (5 mg) by mouth if needed (as needed for orthostatic hypotension)., Disp: 90 tablet, Rfl: 3 nitroglycerin (Nitrostat) 0.4 mg SL tablet, Place 1 tablet (0.4 mg) under the tongue every 5 (five)minutes if needed for chest pain., Disp: 25 tablet, Rfl: 3 potassium chloride CR (Klor-Con M20) 20 mEq ER tablet, Take 40 mEq by mouth in the morning, at noon, and at bedtime., Disp: , Rfl: bumetanide (Bumex) 2 mg tablet, Take 2 tablets (4 mg) by mouth two times daily., Disp: 360 tablet, Rfl: 3 Recent Labs No visits with results within 6 Month(s) from this visit. Latest known visit with results is: [facility] Encounter on 12/09/2021 Component Date Value Auto WBC 12/09/2021 14.13 (H) RBC 12/09/2021 4.13 Hemoglobin 12/09/2021 11.8 (L) Hematocrit 12/09/2021 35.6 (L) MCV 12/09/2021 86.2 MCH 12/09/2021 28.6 MCHC 12/09/2021 33.1 RDW 12/09/2021 13.6 Platelets 12/09/2021 240 nRBC % 12/09/2021 0 blood testing 01/20/2025: Hemoglobin 11.1, platelets 177, BUN 50, creatinine 2.33, eGFR 20, potassium 4.2, magnesium 2.1. Blood testing 11/18/2024: Hemoglobin 10.6, platelets 168, potassium 3.8, BUN 48, creatinine 2.49, eGFR 19, LFTs normal, triglycerides 65, cholesterol 136, LDL 57, HDL 66. Blood testing 08/26/2024: Hemoglobin 11.7, platelets 202, potassium 3.2, BUN 46, creatinine 2.44, EGFR 19. blood testing 01/01/2024: Hemoglobin 10.4, platelets 184, potassium 4.4, BUN 50, creatinine 2.28, EGFR 21. Blood testing 08/12/2023: Hemoglobin 10.9, platelets 208, potassium 4.3, BUN 34, creatinine 1.82, EGFR 27, NT proBNP 1388. Blood testing 05/23/2023: hemoglobin 12.3, platelets 224, potassium 3.0, BUN 48, creatinine 2.04, EGFR 24. Blood testing 08/23/2022: Hemoglobin 11.8. Platelets 215, potassium 4.3, BUN 39, creatinine 1.94, EGFR 25. 06/10/22 BUN 61, CR 2.09, K+ 3.2, Pro BNP 4197 Blood testing 06/02/2022: Potassium 4.1, sodium 134, BUN 81, creatinine 2.44, EGFR 20, NT proBNP 9365. Blood testing 12/16/2021: BUN 77, creatinine 2.92, EGFR 16, potassium 5.0. Blood testing 12/01/2021: BUN 62, creatinine 2.11, potassium 4.3, NT proBNP 5127. Blood testing 11/19/2021: BUN 51, creatinine 2.01, potassium 3.2. NT proBNP 11/19/2021: 4773. Blood testing 10/23/2021: Potassium 3.3, BUN 53, creatinine 2.09, EGFR 23. NT proBNP 4435. High-sensitivity troponin 18. Blood testing 08/26/2021: NT proBNP 916. Potassium 3.8, BUN 38, creatinine 1.86. eGFR 27. Blood testing 04/16/2021: Potassium 3.2, BUN 46, creatinine 2.29. Hemoglobin 12.2, platelets 223. Blood testing 04/15/2021: Potassium 2.7, BUN 44, creatinine 1.97. NT proBNP 01/21/2021: 1198 [normal less than 900]. BMP 01/18/2021: Potassium 3.7, BUN 36, creatinine 1.83. Blood testing 10/16/2020: BUN 60, creatinine 2.31, potassium 3.4, NT proBNP 3290. Blood testing 09/09/2020: Cholesterol 133, triglycerides 86, HDL 53, LDL 63. Blood testing 09/30/2020: BUN 35, creatinine 1.91, potassium 3.7, NT proBNP 4504. Blood testing 09/25/2020: BUN 36, creatinine 1.93, potassium 3.8, NT proBNP 4565. Blood testing 08/22/2020: Hemoglobin 11.2, platelets 261, BUN 41, creatinine 1.84, potassium 3.4, cholesterol 138, HDL 54, LDL 65, triglycerides 96. BMP 07/18/2020: BUN 66, creatinine 2.0, potassium 3.4. BMP 06/29/2020: BUN 36, creatinine 1.7, potassium 4.2. I stopped her furosemide. BMP 07/06/2020: BUN 37, creatinine 1.8, potassium 4.3 Imaging and other tests Echocardiogram 10/04/2024: 1. Normal ventricular size and systolic function. Estimated LVEF is 55 to 60%. 2. Normal right ventricular size and systolic function. 3. Mild biatrial dilatation. 4. Grade 2 diastolic dysfunction. Doppler data suggest elevated filling pressures. 5. Mild tricuspid regurgitation. 6. Moderately elevated right-sided pressures. RVSP is 59 mmHg. ECG 08/10/2023: Sinus rhythm, normal ECG. Echocardiogram 08/09/2023: CONCLUSION: 1. Normal left ventricular systolic function. LVEF is 55 to 60%. 2. Normal right ventricular size and systolic function. 3. Grade 2 diastolic dysfunction. 4. Mild biatrial dilatation. 5. Mild mitral regurgitation. 6. Mild to moderate tricuspid regurgitation. 7. Severely elevated right-sided pressures. RVSP is 64 mmHg. 8. Doppler data suggest increased left-sided filling pressures. Echocardiogram 06/13/2022: Mild concentric left ventricular hypertrophy, normal ventricular systolic function, LVEF is 65 to 70%, normal right ventricular size and systolic function, grade 2 diastolic dysfunction, mild mitral and tricuspid regurgitation, moderately elevated right-sided pressures, RVSP 58 mmHg. Right heart catheterization 12/09/2021: 1. Mildly elevated filling pressures. 2. Mild pulmonary hypertension. 3. Preserved cardiac output and cardiac index. 4. Large V-waves seen on the PCW tracing consistent with non-compliant left atrium. ECG 10/22/2021: Sinus rhythm, nonspecific T wave abnormalities. CABG 07/13/2020: KINNEY to LAD, SVG to PDA. Cardiac cath 07/10/2020: 1. Severe 3-vessel coronary artery disease. 2. A 90% complex mid LAD stenosis around the takeoff of a large diagonal branch which itself has a 60% ostial stenosis. 3. A 80% stenosis in the mid circumflex, which is a small caliber vessel. 4. A 30% mid RCA stenosis and 85% complex long the PDA stenosis. PFT 06/11/2020: Mild restrictive physiology. Carotid ultrasound 05/02/2020: 50 to 69% bilateral carotid artery stenosis. Event monitor 08/13/2019 to 09/11/2019: sinus rhythm with occasional PVCs sometimes in a pattern of bigeminy. EKG 09/05/2019: Sinus bradycardia with frequent PVCs in a pattern of bigeminy. Blood testing 08/23/2019: Normal electrolytes and magnesium. Creatinine 1.14, BUN 27. Echocardiogram 08/20/2019: Global left ventricular systolic function is normal (Visually estimated EF 65%). Left ventricular wall thickness is normal. No regional wall motion abnormality. Grade 2, moderate diastolic dysfunction (pseudonormalized LV filling pattern). The left atrium is normal in size. Unable to assess right sided pressures due to lack of measurable tricuspid regurgitation. No valvular stenosis or significant insufficiency. Stress test 08/26/2019: Myocardial perfusion study shows no evidence of ischemia. Normal myocardial perfusion study with no evidence of fixed or reversible ischemia. Normal wall motion with ejection fraction of 70%. No transient ischemic dilatation. Equivocal EKG changes seen in leads II, 3, aVF, V4, V5, V6. Holter study 07/04/19: Predominant sinus rhythm with average heart rate of 87 bpm. Sinus tachycardia with maximum heart rate of 123 bpm. Rare PACs. Occasional PVCs. Rare bigeminy, trigeminy. 5 patient triggered events with heart rates averaging 85-1 2019: Normal Assessment/Plan Diagnoses and all orders for this visit: Acute on chronic diastolic congestive heart failure ([facility]/HCC) - Basic metabolic panel; Future - bumetanide (Bumex) 2 mg tablet; Take 2 tablets (4 mg) by mouth two times daily. Coronary artery disease involving [place] coronary artery of [place] heart without angina pectoris Essential (primary) hypertension History of coronary artery bypass surgery Stage 4 chronic kidney disease ([facility]/HCC) Claudia is a 74-year-old woman with severe three-vessel coronary artery disease discovered in the setting of unstable angina. She underwent coronary artery bypass surgery in July 2020. Her left-ventricular systolic function was normal. She did have postoperative atrial fibrillation reverted with medical therapy. No evidence of recurrence. Continue aspirin and statin therapy. She has diastolic heart failure with cardiorenal syndrome in the setting of stage IV chronic kidneydisease. She follows with nephrology on a regular basis. Her blood pressure is elevated. She has been having symptoms of shortness of breath on exertion that have been worsening as well as volume overload. Her abdomen is distended. She has bilateral lower extremity edema. I think she is in acute on chronic diastolic heart failure. I discussed with her admission to the hospital for intravenous diuresis. She prefers to manage this as an outpatient initially. I am going to increase bumetanide to 4 mg twice daily. I also asked her to take 1 pill of 2.5 mg of metolazone today. I am going to repeat BMP in 3 days. Depending on clinical progress and the results of the BMPwe can make further adjustment and/or recommend admission to the hospital. I also indicated to her that should she develop any worsening symptoms she should present herself to the emergency room. We will plan on seeing her in follow-up in 1 week to review her clinical progress. Follow up in about 1 week (around 04/14/2025). Bran Fish MD documented in this encounter Plan of Treatment Upcoming Encounters Date Type Department Care Team (Late st Contact Info) Description 05/01/2025 1:20 PM EDT Office Visit [facility] [address] [place] [address] Emilia To, [place] [address] [place] [id number] Scheduled Orders Name Type Priority Associated Diagnoses Orde r Schedule Basic metabolic panel Lab Routine Acute on chronic diastolic congestive heart failure (CMS/HCC) Expected: 04/10/2025 (Approximate), Expires: 04/07/2026 documented as of this encounter Visit Diagnoses Diagnosis Acute on chronic diastolic congestive heart failure (CMS/HCC)- Primary Coronary artery disease involving [place] coronary artery of [place] heart without angina pectoris Essential (primary) hypertension Unspecified essential hypertension History of coronary artery bypass surgery Postsurgical aortocoronary bypass status Stage 4 chronic kidney disease (CMS/HCC) documented in this encounter Care Teams Ad Terminal Makeup Operator Relationship Specialty Start Date End Date John Perdomo DO [address] [place] [address] PCP - General 05/10/22 documented as of this encounter
--- OUTSIDE RECORDS SUMMARY | 2025-04-15 16:48 | XMS_ITS | Encounter Summary ---
Author Organization [facility] Address [address] [place] [address] Care Team Providers Care Job Developer Name Role Phone John Perdomo DO Primary Care Provider [phone] Reason for Visit * Reason Comments Med Change Request Encounter Details Date Type Department Care Team (Late st Contact Info) Description 08/02/2023 Refill [facility] Heart at [facility] [address] [place] [phone] Carmina Cruz, FULFILLMENT COORDINATOR [address] [place] [phone] Orthostatic hypotension Social History Tobacco Use Types Packs/Day Years Used Date Smoking Tobacco: Never Smokeless Tobacco: Never Alcohol Use Standard Drinks/Week Comments Not Currently 0 (1 standard drink = 0.6 oz pur e alcohol) Comments Unknown Sex and Gender Information Value Date Recorded Sex Assigned at Female 05/19/2022 6:11 PM EST Legal Sex Female 12:22 AM EDT Gender Identity Female 05/19/2022 6:11 PM EST Sexual Orientation Heterosexual or Straight 05/03 6:11 PM EST documented as of this encounter Functional Status * Question Answer Date of Assessment Author BP 126/65 08/04/2023 2:03 PM EST Michelle Brown MA Pulse 72 08/04/2023 2:03 PM EST Michelle Brown MA * Patient Position Answer Date of Assessment Author Standing 08/04/2023 2:03 PM EST Lewis Dias MA * Question Answer Date of Assessment Author BP 126/65 08/04/2023 2:03 PM EST Michelle Brown MA Pulse 72 08/04/2023 2:03 PM Michelle Le MA SpO2 95 08/04/2023 1:57 PM Michelle Le MA * BP Location Answer Date of Assessment Author Left arm 08/04/2023 2:03 PM Lewis Gonsales MA * Patient Position Answer Date of Assessment Author Standing 08/04/2023 2:03 PM Lewis Gonsales MA documented as of this encounter Plan of Treatment Upcoming Encounters Date Type Department Care Team (Late st Contact Info) Description 05/01/2025 1:20 PM EDT Office Visit [facility] Heart at [facility] [address] [place] [address] Emilia To, FULFILLMENT COORDINATOR [address] [place] [address] documented as of this encounter Visit Diagnoses Diagnosis Orthostatic hypotension documented in this encounter Care Teams Job Developer Relationship Specialty Start Date End Date John Perdomo DO [address] [place] [address] PCP - General 05/10/22 documented as of this encounter
--- OUTSIDE RECORDS SUMMARY | 2025-04-15 16:48 | XMS_ITS | Encounter Summary ---
Author Organization [facility] Address [address] [facility] [place] [address] Care Team Providers Care Ocular Pathologist Name Role Phone John Perdomo DO Primary Care Provider Encounter Details Date Type Department Care Team (Late st Contact Info) Description 04/10/2025 Telephone [place] [address] [place] [address] Julita Scherer MA Social History Tobacco Use Types Packs/Day Years Used Date Smoking Tobacco: Never Smokeless Tobacco: Never Alcohol Use Standard Drinks/Week Comments Not Currently 0 (1 standard drink = 0.6 oz pur e alcohol) [place] Safety & Environment Answer Date Rec orded [...] PM EST documented as of this encounter Plan of Treatment Upcoming Encounters Date Type Department Care Team (Late st Contact Info) Description 05/01/2025 1:20 PM EDT Office Visit [facility] [address] [place] [address] Emilia To CNP [address] [place] [address] documented as of this encounter Visit Diagnoses Not on filedocumented in this encounter Care Teams Ocular Pathologist Relationship Specialty Start Date End Date John Perdomo DO [address] [place] [address] PCP - General 05/10/22 documented as of this encounter
--- OUTSIDE RECORDS SUMMARY | 2025-04-15 16:48 | XMS_ITS | Patient Health Record ---
Author Organization [facility] [place] Address [address] [place] [address] Care Team Providers Care Supreme Court Judge Name Role Phone John Perdomo Primary Care Provider Allergies Allergen (clinical drug ingredient) Drug/Non Drug Allergy documented on EMR Reaction Allergy Type Onset Date Status erythromycin Erythromycin Base anaphylaxis Drug Allergy Active Penicillin hives Drug Allergy Active Results Component Value Reference Range Notes DEXA Axial Skeleton (hips, p jacobo, spine)* Reviewed date:01/28/2025 08:24:17 AM Interpretation: Performing Lab: Notes/Report: Reason For Referral No Information Medications Medication SIG (Take, Route, Frequency, Duration) Notes Start Date End Date Status Ferrous Sulfate 325 (65 Fe) MG 1 tablet Orally Every other day for 90 days Active Klor-Con M20 20 MEQ 2 tablets Orally Three times a day Active Metoprolol Tartrate 50 MG 1 1/2 tablets Orally Twice a day Active metOLazone 2.5 MG 1 tablet Orally twice a week as needed prn weight gain Active Atorvastatin Calcium 40 MG 1 tablet Orally Once a day at bedtime Active amLODIPine Besylate 10 MG 1 tablet Orally Once a day Active Isosorbide Mononitrate ER 30 MG 1 tablet in the morning Orally Once a day Active hydrALAZINE HCl 50 MG 1 tablet with food Orally Three times a day Active Ergocalciferol 1.25 MG (64846 UT) 1 capsule Orally Once every other week Active Ozurdex 0.7 MG as directed Intravitreal Unknown Bumetanide 2 MG 1 1/2 tablets Orally BID Active Latanoprost 0.005 % 1 drop into both eyes at bedtime Ophthalmic Once a day Unknown Aspirin 81 MG Chew and swallow 1 tablet Orally Daily Active Spironolactone 25 MG 1 tablet Orally Unknown Restasis 0.05 % 1 drop into affected eye(s) Ophthalmic Daily Eye drops in a dropperette Unknown Dorzolamide-Timolol Active Doxazosin Mesylate 4 MG 1.5 tablet Orally BID Active Clindamycin HCl 300 MG 1 capsule Orally bid; Duration: 10 day(s) 06/01/2022 Unknown Allopurinol 100 MG 1 tablet Orally Every day for 90 days Active Levothyroxine Sodium 75 MCG 1 tablet in the morning on an empty stomach Orally Once a day; Duration: 90 days please call pt and tell her this is her new higher dose to take 12/20/2024 Active Basaglar KwikPen 100 UNIT/ML 15 units Subcutaneous tid Active Levothyroxine Sodium 50 MCG TAKE 1 TABLET BY MOUTH EVERY DAY FOR 30 DAYS; Duration: 30 Active Iluvien 0.19 MG as directed Intravitreal Active Nitroglycerin 0.4 MG One tablet Sublingual Every 5 minutes as needed for chest pain DO NOT EXCEED A TOTAL OF 3 DOSES IN 15 MINUTES AND THEN CALL Active Cipro 500 MG 1 tablet Orally BID; Duration: 7 Days 07/27/2022 Unknown Thera Tears Allergy Active Social History Tobacco Use: Social History Observation Description Date Details (start date - stop date) Never Smoker NA - NA Tobacco Use/Smoking Question Answer Notes Patient is a nonsmoker Alcohol Screen (Audit-C) Question Answer Notes Did you have a drink containing alcohol in the p ast year? 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) Active confirmed f/u eye doctor as directed continue eye gtts and off acyclovir stable Problem Anemia in chronic kidney disease (220639348) Anemia in chronic kidney disease (D63.1) Active confirmed Problem Non-toxic multinodular goiter (49993657) Nontoxic multinodular goiter (E04.2) Active confirmed labs Problem Diabetic renal disease (280044498) Type 2 diabetes mellitus with diabetic chronic kidney disease (E11.22) Active confirmed urine microalb yearly BS check tid ac and hs continue basaglar 15 bid diet/exercise eye exam yearly foot exam daily A1c today improved - recheck in 6 months 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 Problem Vitamin D deficiency (72913190) Vitamin D deficiency, unspecified (E55.9) Active confirmed Problem Overweight (629607191) Overweight (E66.3) Active confirmed Problem 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 inflammatory arthritis and tophaceous disease (521187713) 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 inflammatory arthritis and tophaceous disease (E79.0) Active confirmed continue allopurinol 100mg daily diet monitor uric acid - goal less than 6 may need to change to uloric if needs more medication due to CKD Problem Chronic diastolic heart failure (566671122) Chronic diastolic (congestive) heart failure (I50.32) Active confirmed Problem Acute on chronic diastolic heart failure (136570187) Acute on chronic diastolic (congestive) heart failure (I50.33) Active confirmed Problem Osteoarthritis of knee (364127230) Unilateral primary osteoarthritis, left knee (M17.12) Active confirmed f/u PT rec weight loss ?injections Problem Displacement of cervical intervertebral disc without myelopathy (63356600) Other cervical disc displacement, unspecified cervical region (M50.20) Active confirmed monitor stable PT/injections if worsens Problem Disorder of bone (55661204) Other specified disorders of bone density and structure, unspecified site (M85.80) Active confirmed rec prolia monitor vit D set up dexa exercise Problem Chronic kidney disease stage 4 (767215967) Chronic kidney disease, stage 4 (severe) (N18.4) Active confirmed Problem Secondary hyperparathyroidis m of renal origin (10487901) Secondary hyperparathyroid ism of renal origin (N25.81) Active confirmed Problem Medical examination for suspected condition (895077201) Encounter for observation for other suspected diseases and conditions ruled out (Z03.89) Active confirmed f/u eye doctor as directed Problem Congestive heart failure (78103342) CHF (congestive heart failure) (I50.9) Active confirmed Problem Coronary artery disease (94723414) CAD (coronary artery disease) (I25.10) Active confirmed Problem Vitamin D deficiency (13629988) Vitamin D deficiency (E55.9) Active confirmed Problem Acquired hypothyroidism (578538562) Acquired hypothyroidism (E03.9) Active confirmed Problem Systolic heart failure (059054288) Systolic CHF (I50.20) Active confirmed Problem Atherosclerotic heart disease of [place] coronary artery without angina pectoris (904731994616331) Coronary artery disease involving [place] heart without angina pectoris, unspecified vessel or lesion type (I25.10) Active confirmed Problem Atherosclerotic heart disease of [place] coronary artery without angina pectoris (949710799130060) Atherosclerosis of [place] coronary artery without angina pectoris, unspecified whether [place] or transplanted heart (I25.10) Active confirmed s/p CABG x2 stable monitor BP control f/u cardiology as directed later today continue statin/bblocke r/norvasc hold on TOLU due to CKD s/p CABG x 2 - 07/2020 Problem Hypothyroidism (34722997) Hypothyroidism, unspecified type (E03.9) Active confirmed levothyroxine increased to 50 mcg daily recently monitor labs and adjust med if needed Problem Essential hypertension (13724543) BP (high blood pressure) (I10) Active confirmed Problem Pure hypercholesterolem ia (507175174) Pure hypercholesterol emia (E78.00) Active confirmed Problem 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, 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) Active confirmed Problem Primary hypertension (78663056) Primary hypertension (I10) Active confirmed Problem Mild nonproliferative retinopathy due to diabetes mellitus (disorder) (427484376) Mild nonproliferative diabetic retinopathy of both eyes without macular edema associated with type 2 diabetes mellitus (E11.3293) Active confirmed Problem Tear film insufficiency (16160303) Dry eye syndrome of lacrimal gland, unspecified laterality (H04.129) Active confirmed f/u opthamologist and continue eye gtts/oint Problem Malnutrition of mild degree (Shell: 75% to less than 90% of standard weight) (31967156) Mild protein malnutrition (E44.1) Active confirmed Problem Mild nonproliferative retinopathy of bilateral eyes due to diabetes mellitus type 2 (disorder) (27972899866708618 ) Type 2 diabetes mellitus with mild nonproliferative retinopathy of both eyes without macular edema, unspecified whether regional intermodal truck driver insulin use (E11.3293) Active confirmed urine microalb yearly BS check tid ac and hs continue basaglar 15 bid diet/exercise eye exam yearly foot exam daily A1c today improved - recheck in 6 months 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 Problem Diabetic renal disease (388752659) Type 2 diabetes mellitus with diabetic nephropathy, unspecified whether regional intermodal truck driver insulin use (E11.21) Active confirmed urine microalb yearly BS check tid ac and hs continue basaglar 15 bid diet/exercise eye exam yearly foot exam daily A1c today improved - recheck in 6 months 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 Problem Chronic kidney disease stage 3 (disorder) (884278273) Chronic kidney disease, stage 3 unspecified (N18.30) Active confirmed urine microalb yearly BS check tid ac and hs continue basaglar 15 bid diet/exercise eye exam yearly foot exam daily A1c today improved - recheck in 6 months 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 Problem Chronic kidney disease stage 4 (785500509) Acute worsening of stage 4 chronic kidney disease (N18.4) Active confirmed Vital Signs Heart Rate 70 /min 12/05/2024 Respiratory Rate 16 /min 12/05/2024 Oximetry 96 % 12/05/2024 Blood pressure diastolic 68 mm Hg 12/05/2024 Height 56 in 12/05/2024 Blood pressure systolic 130 mm Hg 12/05/2024 Weight 127.8 lbs 12/05/2024 BMI 28.65 kg/m2 12/05/2024 Encounters Encounter Location Date Provider Diagnosis [address] [address] 12/05/2024 John Perdomo Encounter for Medica re annual wellness exam Z00.00 ; Encounter for screening mammogram for malignant neoplasm of breast Z12.31 ; Asymptomatic menopausal state Z78.0 ; Overweight E66.3 ; Body mass index [BMI] 28.0-28.9, adult Z68.28 ; Type 2 diabetes mellitus with diabetic chronic kidney disease E11.22 ; Essential (primary) hypertension I10 ; 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 inflammatory arthritis and tophaceous disease E79.0 ; Pure hypercholesterolemia E78.00 ; Anemia in chronic kidney disease D63.1 ; Chronic diastolic (congestive) heart failure I50.32 ; Vitamin D deficiency E55.9 ; Acquired hypothyroidism E03.9 ; Hypokalemia E87.6 ; Chronic kidney disease, stage 4 (severe) N18.4 and 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, bilateral E11.3413 [facility] [address] [place] [address] 11/08/2024 [facility] [address] [place] [address] 12/05/2024 [facility] [address] [place] [address] 01/08/2025 [facility] [address] [place] [address] 02/07/2025 [facility] [address] [place] [address] 02/19/2025 [facility] [address] [place] [address] 05/09/2024 [facility] [address] [place] [address] 04/29/2024 [facility] Acquired hypothyroid ism E03.9 ; Pure hypercholesterolemia E78.00 ; Hypokalemia E87.6 ; Vitamin D deficiency E55.9 ; Essential (primary) hypertension I10 ; Type 2 diabetes mellitus with diabetic chronic kidney disease E11.22 ; Secondary hyperparathyroidism of renal origin N25.81 and Other fatigue R53.83 Assessments Encounter Date Diagnosis (ICD Code) Assessment Notes Treatment Notes Treatment Clinical Notes Section Notes 12/05/2024 Encounter for screen ing mammogram for malignant neoplasm of breast (ICD-10 - Z12.31) 12/05/2024 Encounter for Medica re annual wellness exam (ICD-10 - Z00.00) set up puja/dexa rtc 1 year diet/exercise labs yearly rec flu shot yearly rec pn vaccine q5 years rec rsv vaccine rec shingrix eye and dental exams yearly rec colonoscopy/col oguard - refuses 04/29/2024 Acquired hypothyroid ism (ICD-10 - E03.9) 04/29/2024 Pure hypercholesterolemia (ICD-10 - E78.00) 04/29/2024 Hypokalemia (ICD-10 - E87.6) 12/05/2024 Asymptomatic [place] state (ICD-10 - Z78.0) 12/05/2024 Overweight (ICD-10 - E66.3) diet/exercise 04/29/2024 Vitamin D deficiency (ICD-10 - E55.9) 12/05/2024 Body mass index [BMI ] 28.0-28.9, adult (ICD-10 - Z68.28) 04/29/2024 Essential (primary) hypertension (ICD-10 - I10) continue norvasc 10mg daily and metoprolol 50mg 1.5 po bid and doxazosin 4mg 1.5 po bid f/u cardio as directed BP check daily goal less than 130/80 diet/exercise get copy of labs done by cardio recently 04/29/2024 Type 2 diabetes mellitus with diabetic chronic kidney disease (ICD-10 - E11.22) urine microalb yearly BS check tid ac and hs continue basaglar 15 bid diet/exercise eye exam yearly foot exam daily A1c today improved - recheck in 6 months 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 12/05/2024 Type 2 diabetes mellitus with diabetic chronic kidney disease (ICD-10 - E11.22) f/u neph as directed stable diet/exercise continue meds 04/29/2024 Secondary hyperparathyroidism of renal origin (ICD-10 - N25.81) 12/05/2024 Essential (primary) hypertension (ICD-10 - I10) bp check daily goal <130/80 diet/exercise monitor bmp and urine microalbumin yearly 12/05/2024 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 inflammatory arthritis and tophaceous disease (ICD-10 - E79.0) stable lab yearly - goal <6 diet 04/29/2024 Other fatigue (ICD-1 0 - R53.83) 12/05/2024 Pure hypercholesterolemia (ICD-10 - E78.00) LDL goal <70 diet/exercise labs yearly stable 12/05/2024 Anemia in chronic kidney disease (ICD-10 - D63.1) monitor stable 12/05/2024 Chronic diastolic (congestive) heart failure (ICD-10 - I50.32) f/u cardio as directed monitor weight and bmp ER if SOB/CP 12/05/2024 Vitamin D deficiency (ICD-10 - E55.9) lab yearly - adjuse med prn 12/05/2024 Acquired hypothyroid ism (ICD-10 - E03.9) increase med - monitor labs uncontrolled 12/05/2024 Hypokalemia (ICD-10 - E87.6) bmp yearly and adjust med as needed 12/05/2024 Chronic kidney disea se, stage 4 (severe) (ICD-10 - N18.4) f/u neph bp/bs control stable 12/05/2024 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, bilateral (ICD-10 - E11.3413) see above stable f/u eye doctor yearly 12/05/2024 Other Plan Of Treatment Pending Test Test Name Order Date HEMOGLOBIN A1C (GLYCO) 03/01/2023 LIPID PANEL (CHOL/TRIG/HDL/LDL) 03/01/20 23 MICROALBUMIN with ALB/CREAT RATIO, URINE (MALB)) 03/01/2023 T3 FREE (T3FR) 03/01/2023 T4 FREE (T4FR) 03/01/2023 TSH 03/01/2023 MAMM SCREEN BILAT ALAINA 3D GLOBAL* 2024 Next Appt Details Provider Name:John browne, 06/11/2025 01:00:00 PM, [address] [place], [address], Insurance Providers Payer Name Payer Address Payer Phone Subscriber Number Group Number Insured Name Patient Relationship to Insured Coverage Start Date Coverage End Date [place]ICARE [place] [place] [address] [id number] Claudia Polo Self - patient is the insured 6 MMO MEDICARE SU[employer] T [address] [place] [address] [id number] Claudia Polo Self - patient is the insured 9 Medical (General) History Medical History History ICD Code Diabetes Hypertension Osteoporosis hyperuricemia ckd-4 vit D deficiency hypothyroidism CHF - diastolic cad s/p CABG hyperlipidemia secondary hyperparathyroidism hypokalemia iron def anemia anemia of CKD b/l diabetic retinopathy b/l macular edema glaucoma PAF 2020 post op pulm HTN Surgical History Surgery Date(Month/Year) Ovarian cyst removal Right foot surgery Thyroid bx Cataracts (b/l) 11/06/2019 Total knee replacement (L) 05/01/2020 Cardiac catheterization +CAD 07/10/2020 Arthroscopic/knee - torn meniscus 2019 Open heart surgery - double bypass 07/13 Cholecystectomy delivery Appendectomy
--- OUTSIDE RECORDS SUMMARY | 2025-04-15 16:48 | XMS_ITS | Clinical Summary ---
Author Organization [facility] Address [address] [place] [address] Care Team Providers Care Custody Officer Name Role Phone John Perdomo DO Primary Care Provider [phone] Allergies Active Allergy Reactions Criticality Noted Date Comments Erythromycin Other 05/10/2022 Erythromycin Base 05/10/2022 Hydromorphone 05/10/2022 Penicillins Hives 05/10/2022 Spironolactone Rash Low 09/04/2023 Medications allopurinol (Zyloprim) 100 mg tablet TAKE 1 TABLET BY MOUTH ONCE DAILY FOR 90 DAYS Active aspirin 81 mg EC tablet Take 1 tablet every day by oral route. Active ergocalciferol (Vitamin D-2) 1.25 MG (99839 UT) capsule Take 1 capsule by mouth 1 (one) time per week. Active ferrous sulfate 325 (65 Fe) MG tablet TAKE 1 TABLET BY MOUTH EVERY OTHER DAY FOR 90 DAYS Active levothyroxine (Synthroid, Levoxyl) 50 mcg tablet Take 1 tablet by mouth in the morning. Active potassium chloride CR (Klor-Con M20) 20 mEq ER tablet Take 40 mEq by mouth in the morning. Active insulin glargine (Lantus) 100 unit/mL (3 mL) pen Inject under the skin. 11/05/19 20 Active nitroglycerin (Nitrostat) 0.4 mg SL tabletIndicatio ns:Coronary artery disease of [place] artery of [place] heart with stable angina pectoris Place 1 tablet (0.4 mg) under the tongue every 5 (five) minutes if needed for chest pain. 25 tablet 3 09/13/19 23 Active midodrine (Proamatine) 5 mg tabletIndicatio ns:Orthostatic hypotension Take 1 tablet (5 mg) by mouth if needed (as needed for orthostatic hypotension). 90 tablet 3 06/12/20 24 2024 Active metOLazone (Zaroxolyn) 2.5 mg tabletIndicatio ns:Essential (primary) hypertension TAKE 1 TABLET BY MOUTH IF NEEDED FOR SWELLING OR WEIGHT GAIN 90 tablet 1 09/17/19 25 Active Additional Information Patient taking differently: 2.5 mg oral As needed, Reported on 04/15/2025 isosorbide mononitrate ER (Imdur) 30 mg 24 hr tabletIndicatio ns:Coronary artery disease involving [place] coronary artery of [place] heart without angina pectoris Take 1 tablet (30 mg) by mouth once daily as directed. Do not crush or chew. 90 tablet 3 09/17/19 25 Active amLODIPine (Norvasc) 10 mg tabletIndicatio ns:Essential (primary) hypertension TAKE 1 TABLET BY MOUTH EVERY DAY 90 tablet 3 10/15/19 25 Active doxazosin (Cardura) 4 mg tabletIndicatio ns:Primary hypertension TAKE 1 AND 1/2 TABLETS BY MOUTH TWICE A DAY 270 tablet 3 10/29/19 25 Active Additional Information Patient not taking.Reported on 04/15/2025 atorvastatin (Lipitor) 40 mg tabletIndicatio ns:Hyperlipidem ia, unspecified TAKE 1 TABLET BY MOUTH EVERYDAY AT BEDTIME 90 tablet 3 11/12/19 25 Active hydrALAZINE (Apresoline) 50 mg tabletIndicatio ns:Essential (primary) hypertension TAKE 1 TABLET BY MOUTH TWO TIMES DAILY. 180 tablet 02/05/20 25 Active bumetanide (Bumex) 2 mg tabletIndicatio ns:Acute on chronic diastolic congestive heart failure (CMS/HCC) Take 2 tablets (4 mg) by mouth two times daily. 360 tablet 3 04/07/20 25 2025 Active Additional Information Patient taking differently: 2 mgoralDaily, Reported on 04/15/2025 folic acid (Folvite) 1 mg tablet Take 1 mg by mouth in the morning. Active metoprolol tartrate (Lopressor) 50 mg tabletIndicatio ns:Essential (primary) hypertension Take 1.5 tablets (75 mg) by mouth in the morning and at bedtime. 04/15/20 25 Active bumetanide (Bumex) 2 mg tabletIndicatio ns:Heart failure, unspecified (CMS/HCC) TAKE 1 AND 1/2 TABLETS BY MOUTH TWICE A DAY 270 tablet 3 05/06/20 24 2024 Discontinued(D ose adjustment) metoprolol tartrate (Lopressor) 50 mg tabletIndicatio ns:Essential (primary) hypertension Take 1.5 tablets (75 mg) by mouth in the morning and at bedtime. 270 tablet 3 09/17/19 25 2024 Discontinued Active Problems Problem Noted Date Diagnosed Date Hyperlipidemia 03/01/2024 Hyperuricemia 03/01/2024 Hypokalemia 03/01/2024 Microscopic hematuria 03/01/2024 Secondary hyperparathyroidism 03/01/2024 Nontoxic multinodular goiter 09/27/2023 Orthostatic hypotension 07/11/2023 Assessment & Plan (07/11/2023 12:15 PM EST): Reviewed pt's b/p sitting and standing. Sitting B/P remains elevated and significant hypotension with standing therefore will send script to midodrine 5 mg tid prn for orthostasis, continue all other meds. Continue to monitor b/P and heart rate and call office if no improvement of symptoms. Staff to schedule pt for office visit soon to evaluate symptoms and response. 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 Bumex, doxazosin, hydralazine Glaucoma 06/02/2022 Goiter 06/02/2022 Chronic diastolic heart failure 05/11/2022 Overview (07/20/2022): Images from the original note were not included. 06/2022 Echo Assessment & Plan (02/24/2023 2:27 PM EDT): NYHC II Currently euvolemic without exacerbation Continue GDMT- Diuretic therapy- As per nephrology recommendations she takes Bumex 3 mg twice daily and metolazone 2.5 mg as needed Monitor daily weights, I&O, fluid restriction 1.5-2L/day, renal function and electrolytes Assessment & Plan (07/20/2022 10:33 AM EST): NYHC III Currently pt is euvolemic, without exacerbation Continue bumex 3 mg bid and metolazone 2.5 mg 3 times a week- she does adjust her diuretics at times when she feels too dry. 06/10/22 BUN 61, CR 2.09 (typical for her), K+ 3.2 Pro BNP 4197 F/U with Dr Garcia- nephrology as scheduled in Aug and RTC with Dr Fish in 2-3 months Assessment & Plan (05/11/2022 4:29 PM EST): Weight in December visit was 127 pounds and now 132#. Increased orthopnea, edema, dyspnea and weight gain noted. Calling educational technologist Dr garcia for recommendations - in light she is already on bumex 3 mg bid, and metolazone 2.5 mg twice weekly Send for labs- today and CXR to assess renal function, electrolytes and BNP Return to clinic next week for reevaluation Addendum-discussed with Dr. Garcia patient symptoms and assessment he recommends patient increase metolazone to 5 mg daily for the next 3 to 5 days continue Bumex 3 mg p.o. twice daily and increase potassium possible for the next 3 to 5 days with added metolazone, labs today and repeat labs again Monday. He states if symptoms worsen she is to call him and he will admit her for aggressive diuresis. Patient updated and she voiced understanding of instructions. Coronary arteriosclerosis 07/21/2021 Assessment & Plan (02/24/2023 2:26 PM EDT): Coronary artery disease is stable Continue GDMT- Continue aspirin, Lipitor and metoprolol continue risk factor modifications- heart healthy diet, regular exercise as tolerated and continue all medications. Assessment & Plan (07/20/2022 10:35 AM EST): Coronary artery disease is stable without concerning symptoms today Continue GDMT- ASA, lipitor, metoprolol continue risk factor modifications- heart healthy diet, regular exercise as tolerated and continue all medications. Assessment & Plan (05/11/2022 3:21 PM EST): Currently stable, continue GDMT- ASA, lipitor and metoprolol Welding Equipment Repairer sent a note that he wants to add eyedrops- darzalamide/timolol to her regimen and to monitor for any side effects. Hypertensive disorder 07/21/2021 Assessment & Plan (02/24/2023 2:26 PM EDT): Hypertension is Well-controlled blood pressure 131/71 Continue all medications Follow-up with nephrology as scheduled Assessment & Plan (05/11/2022 3:19 PM EST): Currently stable- 136/59 Continue all medications Stage 4 chronic kidney disease 07/21/2021 Assessment & Plan (05/11/2022 3:20 PM EST): We will discussed with Dr. Garcia regarding further recommendations regarding her diuresis Sent for labs today and chest x-ray Kidney disease 07/31/2020 Heart murmur 08/13/2019 Recurrent herpes simplex 08/13/2019 Type 2 diabetes mellitus 08/13/2019 Encounters Date Type Department Care Team Description 04/15/2025 2:20 PM EDT Office Visit [place] [address] [place] [address] Emilia To CNP Essential (primary) hypertension 04/10/2025 Orders Only [facility] [address] [place] [facility] [place] [facility] [place] [address] ProviderDrea MD 04/10/2025 Telephone [facility] [address] [place] [facility] [place] [address] Julita Scherer MA 04/07/2025 3:00 PM EDT Office Visit [facility] [address] [place] [facility] [place] [address] Bran Fish MD Acute on chronic diastolic congestive heart failure (CMS/HCC) (Primary Dx); Coronary artery disease involving [place] coronary artery of [place] heart without angina pectoris; Essential (primary) hypertension; History of coronary artery bypass surgery; Stage 4 chronic kidney disease (CMS/HCC) 02/04/2025 Refill [facility] [address] [place] [facility] [place] [address] Bran Fish MD Essential (primary) hypertension from Last 3 Months Immunizations Immunization Administration Dates Next Due Hep B, adult 06/20/2000,03/07/2000,12/01/1999 Family History Medical History Relation Name Comments Heart attack Father Heart attack Mother Heart failure Mother Relation Name Status Comments Father Mother Social History Tobacco Use Types Packs/Day Years Used Date Smoking Tobacco: Never Smokeless Tobacco: Never Tobacco Cessation:Counseling Given: Not Answered Alcohol Use Standard Drinks/Week Comments Not Currently [...] Heterosexual or Straight 05/03 6:11 PM EST Last Filed Vital Signs Vital Sign Reading Time Taken Comments Blood Pressure 146/70 04/15/2025 2:47 PM EDT Pulse 74 04/15/2025 2:47 PM EDT Temperature 36.4 C (97.5 F) 08/10/2020 10:10 AM EST Respiratory Rate 16 08/10/2020 10:05 AM EST Oxygen Saturation 95% 04/15/2025 2:47 PM EDT Inhaled Oxygen Concentration - - Weight 56.2 kg (124 lb) 04/15/2025 2:47 PM EDT Height 142.2 cm (4' 8 ) 04/15/2025 2:47 PM EDT Body Mass Index 27.8 04/15/2025 2:47 PM EDT Plan of Treatment Upcoming Encounters Date Type Department Care Team (Late st Contact Info) Description 05/01/2025 1:20 PM EDT Office Visit [facility] [address] [place] [address] Emilia To, SPANISH SPEAKING BABYSITTER [address] [place] [address] Health Maintenance Due Date Last Done Comments CT Colonography 1950 Colonoscopy 1950 Colorectal Cancer Screening 1950 FIT-DNA 1950 FIT 1950 FOBT 1950 Medicare Annual Wellness (AWV) 1950 Sigmoidoscopy 1950 Diabetes: Retinopathy Screening 1961 Depression Screening 1963 Diabetes: Urine Protein Screening 1970 Pneumococcal Vaccine: 50+ Ye ars (1 of 2 - PCV) 1970 Adult Tetanus 1973 Mammogram 1991 Zoster Vaccines (1 of 2) 2001 Fall Risk Screening 2016 Diabetes: Hemoglobin A1C 10/08/2020 07/10/2020 COVID-19 Vaccine ( - 2023-2 5 season) 2025 Influenza Vaccine (#1) 2025 HIB Vaccines Aged Out No longer eligi ble based on patient's age to complete this topic HPV Vaccines Aged Out No longer eligi ble based on patient's age to complete this topic IPV Vaccines Aged Out No longer eligi ble based on patient's age to complete this topic Meningococcal B Vaccine Aged Out No l onger eligible based on patient's age to complete this topic Meningococcal Vaccine Aged Out No marlen alpa eligible based on patient's age to complete this topic Rotavirus Vaccines Aged Out No longer eligible based on patient's age to complete this topic Procedures Procedure Name Priority Date/Time Associated Diagnosis Comments BASIC METABOLIC PANEL Routine 04/10/2025 2:45 PM EDT HEMOGLOBIN A1C Routine 07/10/2020 7:09 PM EST from Last 3 Months or Most Recently Relevant to Health Maintenance Results * Basic metabolic panel (04/10/2025 2:45 PM EDT) Blood Venous blood specimen / Unknown Historical Provider LAB BLOOD ORDERABLES Tanisha l Result * (ABNORMAL) Hemoglobin A1c (07/10/2020 7:09 PM EST) Hemoglobin A1C 6.2(H) 4.0 - 6.0 % LAB CONVERSIONS Estimated Average Glucose 131 mmol/L LAB CONVERSIONS 07/10/2020 7:09 PM EST 07/10/2020 7:26 PM EST Narrative LAB CONVERSIONS - 07/12/2020 11:33 AM EST No: Do not add to previous draw Gloria BIGGS LAB BLOOD ORDERABLES Final Result LAB CONVERSIONS from Last 3 Months or Most Recently Relevant to Health Maintenance Insurance [employer] Care Teams Custody Officer Relationship Specialty Start Date End Date John Perdomo DO [address] [place] [address] PCP - General 05/10/22
--- OUTSIDE RECORDS SUMMARY | 2025-04-15 16:48 | XMS_ITS | Encounter Summary ---
Author Organization [facility] Address [address] [facility] [place] [address] Care Team Providers Care Machine Sander Name Role Phone John Galindo MD Unavailable [phone] Unallocated, Noms Provider MD Primary Care Provi kortney Encounter Details Date Type Department Care Team (Late st Contact Info) Description 09/09/2023 Clinisync Result Encounter [facility] External Department Unsolicited Anahi Stanford MD [address] [facility] [address] [place] [address] Social History Tobacco Use Types Packs/Day Years [...] 06/04/2025 1:15 PM EST Office Visit [facility] [address] [place] [address] Johnathon Yanez, DO [address] [place] [address] [phone] (work) documented as of this encounter Procedures Procedure Name Priority Date/Time Associated Diagnosis Comments US THYROID 09/09/2023 4:18 AM EST documented in this encounter Results * US thyroid (09/09/2023 4:18 AM EST) Anatomical Region Laterality Modality Head, Neck Ultrasound 09/09/2023 4:18 AM EST Narrative 09/09/2023 4:20 [place] [address] Ultrasound Report Signed Patient: CLAUDIA POLO MR#: [id number] : 1950 Acct:[id number] Age/Sex: 73 / F ADM Date: 09/06/23 Loc: US Attending Dr: Anahi Stanford M.D. Ordering Physician: Anahi Stanford M.D. Date of Service: 09/06/23 Procedure(s): US thyroid Accession Number(s): [id number] cc: JOHN GALINDO D.O.; Anahi Stanford M.D. [place] [id number] Patient Name: CLAUDIA POLO MRN: [id number] date: 1950 Sex: F Assigned Patient Location: US Current Patient Location: US Accession/Order Number: [id number] Exam Date: 09/06/2023 15:00 Report Date: 09/09/2023 [...] Michelle M.D. Signed By: 09/09/23419 DD/ TD/TT: Crossbow Maker: Procedure Note Radiology, Radiologist, MD - 09/09/2023 [place] [address] Ultrasound Report Signed Patient: CLAUDIA POLO EMR#: [id number] : 1950cct:[id number] Age/Sex: 73 / FADM Date: 09/06/23 Loc: US Attending Dr: Anahi Stanford M.D. Ordering Physician: Anahi Stanford M.D. Date of Service: 09/06/23 Procedure(s): US thyroid Accession Number(s): [id number] cc: JOHN GALINDO D.O.; Anahi Stanford M.D. [facility] [place] [address] Patient Name: CLAUDIA POLO MRN: [id number] date: 1950 Sex: F Assigned Patient Location: US Current Patient Location: US Accession/Order Number: [id number] Exam Date: 09/06/2023 15:00 Report Date: 09/09/2023 [...] pattern (0% risk ofmalignancy) Electronically authenticated by: LOOC MICHELLE Date: 09/09/2023 04:18 Dictated By: Loco Michelle M.D. Signed By:09/09/23 0420 DD/ 0418 TD/TT: Crossbow Maker: us Anahi Stanford MD IMG US PROCEDURES Final Resul t documented in this encounter Visit Diagnoses Not on filedocumented in this encounter Care Teams Machine Sander Relationship Specialty Start Date End Date Unallocated, Noms Marcelo, [facility] [address] PCP - General Family Medicine 08/18/23 John Galindo MD [address] [place] [address] Referring Physician Orthopaedic Surgery 05/08/23 documented as of this encounter
--- OUTSIDE RECORDS SUMMARY | 2025-04-15 16:48 | XMS_ITS | Encounter Summary ---
Author Organization [facility] Address [address] [facility] [place] [address] Care Team Providers Care Business Education Professor Name Role Phone John Perdomo MD Unavailable [phone] Unallocated, Noms Provider MD Primary Care Provi kortney Encounter Details Date Type Department Care Team (Late st Contact Info) Description 09/14/2023 Orders Only [facility] [address] [place] [address] Kami Garcia, BRYCE [address] [facility] [address] [place] [address] Nontoxic multinodular goiter Social History Tobacco Use [...] 06/04/2025 1:15 PM EST Office Visit [facility] [address] [place] [phone] Johnathon Yanez, DO [address] [place] [address] documented as of this encounter Visit Diagnoses Diagnosis Nontoxic multinodular goiter documented in this encounter Care Teams Business Education Professor Relationship Specialty Start Date End Date Unallocated, Noms Provider, [address] [place] [address] PCP - General Family Medicine 08/18/23 John Perdomo MD [address] [place] [address] Referring Physician Orthopaedic Surgery 05/08/23 documented as of this encounter
--- OUTSIDE RECORDS SUMMARY | 2025-04-15 16:48 | XMS_ITS | Encounter Summary ---
Author Organization [facility] Address [address] [place] [address] Care Team Providers Care Coal Trimmer Name Role Phone John Perdomo DO Primary Care Provider [phone] Encounter Details Date Type Department Care Team (Late st Contact Info) Description 04/10/2025 Orders Only [address] [address] Provider, MD Drea [address] [place], [place] [id number] Social History Tobacco Use Types Packs/Day Years [...] Description 05/01/2025 1:20 PM EDT Office Visit [place] [address] [place] [address] Emilia To, TITLE DEPARTMENT MANAGER [address] [place] [address] documented as of this encounter Procedures Procedure Name Priority Date/Time Associated Diagnosis Comments BASIC METABOLIC PANEL Routine 04/10/2025 2:45 PM EDT documented in this encounter Results * Basic metabolic panel (04/10/2025 2:45 PM EDT) Blood Venous blood specimen / Unknown us Historical Provider LAB BLOOD ORDERABLES Tanisha l Result documented in this encounter Visit Diagnoses Not on filedocumented in this encounter Care Teams Coal Trimmer Relationship Specialty Start Date End Date John Perdomo DO [address] [address] PCP - General 05/10/22 documented as of this encounter
--- OUTSIDE RECORDS SUMMARY | 2025-04-15 16:48 | XMS_ITS | Clinical Summary ---
Author Organization [facility] Address [address] [facility] [place] [address] Care Team Providers Care Turret Lathe Set Up Operator Name Role Phone John Perdomo MD Unavailable [phone] Unallocated, Noms Provider MD Primary Care Provi [...] the evening and 40 mEq before bedtime. 04/10/20 23 Active nitroglycerin (Nitrostat) 0.[address] 1 TABLET UNDER TONGUE EVERY 5 MINUTES IF NEEDED FOR CHEST PAIN Active metoprolol tartrate (Lopressor) 50 MG tablet Take 1.5 tablets by mouth in the morning and 1.5 tablets before bedtime. 09/14/19 23 Active metOLazone (Zaroxolyn) 2.5 MG tablet TAKE 1 TABLET BY MOUTH TWICE WEEKLY Active levothyroxine (Synthroid, Levoxyl) 50 MCG tablet Take 1 tablet by mouth in the morning. Active hydrALAZINE (Apresoline) 50 MG tablet TAKE 1 TABLET BY MOUTH THREE TIMES A DAY FOR 90 DAYS 08/11/19 23 Active ferrous sulfate 325 (65 Fe) MG tablet Take 1 tablet by mouth every other day. Active ergocalciferol (Vitamin D-2) 1.25 MG (54573 UT) capsule Take 1 capsule by mouth 1 (one) time per week. Active doxazosin (Cardura) 4 MG tablet TAKE 1 AND 1/2 TABLETS BY MOUTH TWICE DAILY FOR 90 DAYS 10/25/19 23 Active bumetanide (Bumex) 2 MG tablet Take 1.5 tablets by mouth in the morning and 1.5 tablets before bedtime. Active atorvastatin (Lipitor) 40 MG tablet Take 1 tablet by mouth at bedtime. 12/23/19 23 Active aspirin 81 MG EC tablet Take [...] tablet Take 1 tablet by mouth Daily 10/29/19 21 Active cycloSPORINE (Restasis) 0.05 % ophthalmic emulsion [...] EVERY MORNING *DO NOT CRUSH OR CHEW* 08/17/19 24 Active latanoprost (Xalatan) 0.005 % ophthalmic solution 1 (one) time each day at the same time Active liothyronine (Cytomel) 5 MCG tablet TAKE 2 TABLETS BY MOUTH ONCE A DAY 08/11/19 24 Active dorzolamide-ti molol (Cosopt) 2-0.5 % ophthalmic solution Twice daily 09/25/19 24 Active isosorbide dinitrate (Isordil) 30 MG tablet Daily 09/25/19 24 Active dorzolamide-ti molol (Cosopt) 2-0.5 % ophthalmic solutionIndica tions:Primary open angle glaucoma (POAG) of both eyes, mild stage ADMINISTER 1 DROP INTO BOTH EYES IN THE MORNING AND 1 DROP BEFORE BEDTIME. 30 mL 1 03/24/20 25 026 Active dorzolamide-ti molol (Cosopt) 2-0.5 % ophthalmic solutionIndica tions:Primary open angle glaucoma (POAG) of both eyes, mild stage ADMINISTER 1 DROP INTO BOTH EYES IN THE MORNING AND 1 DROP BEFORE BEDTIME. 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 05/08/2023 Corneal scar, right eye 05/08/2023 Dry eyes 05/08/2023 Primary open angle glaucoma (POAG) of both eyes, mild stage 05/08/2023 Encounters Date Type Department Care Team Description 03/23/2025 Refill [facility] [address] [place] [address] Johnathon Yanez, DO Primary open angle glaucoma (POAG) of both eyes, mild stage from Last 3 Months Family History Medical [...] 06/04/2025 1:15 PM EST Office Visit [facility] [address] [place] [phone] Johnathon Yanez DO [address] [place] [address] Health Maintenance Due Date Last Done Comments [...] 11/26/2025 11/26/2024, 11/26/2024, 11/26/2024, Additional history exists Insurance [employer] Care Teams Turret Lathe Set Up Operator Relationship Specialty Start Date End Date Unallocated, Noms Provider, [address] [place] [phone] PCP - General Family Medicine 08/18/23 John Perdomo MD [address] [place] [address] Referring Physician Orthopaedic Surgery 05/08/23
--- OUTSIDE RECORDS SUMMARY | 2025-04-15 16:49 | XMS_ITS | CCD ---
Author Organization [facility] Care Team Providers Care Adaptive Physical Education Specialist Name Role Phone JOHN PERDOMO Referring [...] GENEVA Consulting Unavailable Perdomo John VIGIL Unavailable [phone] Unallocated , Joses Provider Primary Care Provi kortney MIRTA TERAN Attending Unavailable ZAHLMIRTA AMST Attending Unavailable Perdomo John FAIR Primary Care Provider Geneva Jenkins MD Attending Provider [phone] KARTHIK FISH Attending Unavailable KRATHIK FISH Attending Unavailable Allergies Allergy Classification Reported Allergen(s) Allergy Type Date of Onset Reaction(s) Facility [facility] (1 source) HYDROmorphone Drug Allergy 4 Unknown Reaction [facility] Penicillins (antibiotic) (1 source) Penicillin G Benzathine Drug Allergy 4 [facility] Spironolactone (1 source) Spironolactone Drug Allergy 4 [facility] (2 sources) Erythromycin; Translations: [ERYTHROMYCIN] Drug Allergy 1 [facility] (2 sources) HYDROmorphone Drug Allergy 1 [facility] (2 sources) Penicillins; Translations: [PENICILLINS] Drug allergy (disorder) 1 [facility] (20 sources) Erythromycin Drug Allergy 2 anaphylaxis, Other, Unknown [facility] (20 sources) HYDROmorphone; Translations: [HYDROMORPHONE] Drug Allergy 2 [facility] (20 sources) Penicillin Drug Allergy Unknown [employer] Other (20 sources) Penicillin G Benzathine Drug allergy 3 [facility] (12 sources) Erythromycin; Translations: [ERYTHROMYCIN BASE] Drug Allergy 0 Anaphylaxis [facility] Repository (1 source) Penicillin Drug Allergy [facility] (8 sources) Spironolactone; Translations: [SPIRONOLACTONE] Drug Allergy 3 [facility] (5 sources) Penicillin G Drug Allergy 3 Other [facility] (4 sources) Penicillins Drug Allergy 2 [facility] (4 sources) Spironolactone Drug Allergy 4 [facility] Medications Current Medications Medication Drug [...] D2) 1,250 mcg (50,000 unit) capsule Active 06432 UNIT PO .COMPLEX July 29, 2024 7:32pm 50,000 units orally every other week; Complies with drug therapy Start: 09-25-2023 End: 07-29-2024 take 1 capsule by mouth every week Ergocalciferol (Vitamin D2) 1,250 mcg (50,000 unit) capsule Discontinued 92517 UNIT PO EVERY 2 WEEKS September 25, 2023 12:00am July 29, 2024 7:33pm [employer]: TAKE 1 CAPSULE BY MOUTH ONE TIME PER WEEK; Note: Source Status: Start; Refills: 2; Qty: 12 Capsule; Provider: Mary Grace Bean ( ) take 1 capsule by [facility] every week Vitamin D (Ergocalciferol) 1.25 MG (53854 UT) TAKE 1 CAPSULE BY MOUTH ONE TIME PER WEEK for 84 Active take 1 capsule by [facility] every other week Ergocalciferol 1.25 MG (81375 UT) 1 capsule Orally Q2 week for [...] DAYS Start: 09-06-2023 [facility] Ferrous Sulfate Active [...] 1; Qty: 45 Tablet; Provider: Mary Grace Bena ( ) take 1 tablet by yossi [...] 50 mg oral tablet (20 sources) beta-Adrenergic Rnajit Start: 01-08-2024 Metopr olol Tartrate 50 mg [...] disease (3 sources) Atherosclerotic heart disease of [place] coronary artery without angina pectoris; 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 Office Visiton 04-07-2025 Follow-up visit [id number] Claudia Estrella 1950 F Date Provider Department Center 04/07/2025 Sixto-KARTHIK FISH [facility] Family History Problem Relation Age of Onset Heart attack Mother Heart failure Mother Heart attack Father Family Status - Relation Status Age at Mother Father Level of Service:43479 SD OFFICE/OUTPATIENT ESTABLISHED MOD MDM 30 MIN Normal [facility] Erythrocyte distribution wid th Auto (RBC) [Ratio]Ordered By: Geneva Jenkins on 01-20-2025 Erythrocyte distribution width (RBC) [Ratio] 13.7 % 11.0-15.0 [facility] Estimated glomerular filtrat ion rate (GFR) non- AmericanOrdered By: Geneva Jenkins on 01-20-2025 GFR/1.73 sq M.predicted among non-blacks MDRD (S/P/Bld) [Vol rate/Area] 20 mL/min/{1.73_m2} Low >=60 mL/min/1.73m 2 [facility] Hematocrit Auto (Bld) [Volum e fraction]Ordered By: Geneva Jenkins on 01-20-2025 Hematocrit (Bld) [Volume fraction] 32.6 % Low 36.0-48.0 [facility] Hemoglobin [Mass/volume] in BloodOrdered By: Geneva Jenkins on 01-20-2025 Hemoglobin (Bld) [Mass/Vol] 11.1 g/dL Low 12.0-16.0 [facility] Iron binding capacity [Mass/ volume] in Serum or PlasmaOrdered By: Geneva Jenkins on 01-20-2025 Iron binding capacity [Mass/Vol] 279.0 ug/dL 250.0-450.0 [facility] Iron saturation [Mass Fracti on] in Serum or PlasmaOrdered By: Geneva Jenkins on 01-20-2025 Iron saturation [Mass fraction] 17.9 % [facility] Laboratory - Chemistry and C hemistry - challengeOrdered By: Geneva Jenkins on 01-20-2025 Albumin [Mass/Vol] 3.2 g/dL Low 3.4-5.0 [facility] Calcium [Mass/Vol] 9.2 mg/dL 8.5-10.1 [facility] Chloride [Moles/Vol] 105 mmol/L 98-107 [facility] CO2 [Moles/Vol] 25.4 mmol/L 21.0-32.0 [facility] Creatinine [Mass/Vol] 2.33 mg/dL High 0.55-1.02 [facility] GFR/1.73 sq M.predicted MDRD (S/P/Bld) [Vol rate/Area] 25 mL/min/{1.73_m2} Low >=60 mL/min/1.73m 2 [facility] Glucose [Mass/Vol] 158 mg/dL High 74-106 [facility] Iron [Mass/Vol] 50.0 ug/dL 50.0-170.0 [facility] Magnesium [Mass/Vol] 2.1 mg/dL 1.8-2.4 [facility] Potassium [Moles/Vol] 4.2 mmol/L 3.5-5.1 [facility] Sodium [Moles/Vol] 142 mmol/L 136-145 [facility] Urate [Mass/Vol] 5.4 mg/dL 2.6-6.0 [facility] Urea nitrogen [Mass/Vol] 50.0 mg/dL High 7.0-18.0 [facility] Urea nitrogen/Creatinine [Mass ratio] 21.5 mg/mg [facility] Bilirubin Ql (U) Negative NEGATIVE [facility] Glucose (U) [Mass/Vol] Negative NEGATIVE [facility] Ketones Ql (U) Negative NEGATIVE [facility] pH (U) 6.0 [pH] 5.0-9.0 [facility] Specific gravity (U) [Rel density] 1.020 1.005-1.025 [facility] Urobilinogen Qn (U) 0.2 {Kelly'U}/dL 0.2-1.0 [facility] Laboratory - Specimen inform ationOrdered By: Geneva Jenkins on 01-20-2025 Appearance (U) CLEAR CLEAR [facility] Color (U) LT. YELLOW YELLOW [facility] Laboratory - UrinalysisOrder ed By: Geneva Jenkins on 01-20-2025 Leukocyte esterase Test strip Ql (U) TRACE Abnormal NEGATIVE [facility] Mucus Ql (Urine sed) TRACE Abnormal NONE SEEN [facility] Nitrite Ql (U) Negative NEGATIVE [facility] Protein (U) [Mass/Vol] 167.6 mg/dL High <=11.9 [facility] Protein Ql (U) >=300 mg/dL Abnormal NEG/TRACE [facility] Leukocytes [#/volume] correc stacy for nucleated erythrocytes in Blood by Automated counOrdered By: Geneva Jenkins on 01-20-2025 WBC corrected for nucl RBC Auto (Bld) [#/Vol] 9.0 10 3/uL 4.0-11.0 [facility] MCH Auto (RBC) [Entitic mass ]Ordered By: Geneva Jenkins on 01-20-2025 MCH (RBC) [Entitic mass] 29.8 pg 26.7-34.0 [facility] MCHC Auto (RBC) [Mass/Vol]Or dered By: Geneva Jenkins on 01-20-2025 MCHC (RBC) [Mass/Vol] 34.0 g/dL 29.9-35.2 [facility] MCV Auto (RBC) [Entitic vol] Ordered By: Geneva Jenkins on 01-20-2025 MCV (RBC) [Entitic vol] 87.4 fL 81.0-99.0 [facility] No Panel InformationOrdered By: Geneva Jenkins on 01-20-2025 25-Hydroxy Vitamin D Total 46.0 ng/mL [facility] Comment on above: <20 ng/mL Vit D defi cient20-<30 ng/mL Vit D [id number] ng/mL Vit D sufficient>100 ng/mL Potential Toxicity Miscellaneous Test COMMENT . [facility] Comment on above: Test Ordered: [id number] FerritinFerritin 153 [H ] ng/mL CB Reference Range: 15-150Performed at: CB - [facility] [address] [id number] Director: Curry Rizzo PhD, Phone: [phone] Parathyroid Hormone (Intact) 58 pg/mL 15-65 [facility] Comment on above: Performed at: CB - [facility] [address] [id number] Director: Curry Rizzo PhD, Phone: [phone] Phosphorus Level 4.6 mg/dL 2.6-4.7 [facility] Urine Bacteria TRACE #/HPF Abnormal NONE SEEN [facility] Urine Occult Blood TRACE-I NEGATIVE [facility] Urine Other Casts NONE SEEN #/LPF NONE SEEN [facility] Urine Other Crystals None Seen #/HPF None Seen [facility] Urine Random Creatinine 30.76 mg/dL 20.00-300.0 0 [facility] Urine RBC 2-5 #/HPF Abnormal 0-2 [facility] Urine Squamous Epithelial Cells FEW #/LPF Abnormal NONE/RARE [facility] Urine WBC 0-2 #/HPF Abnormal NONE SEEN [facility] Platelet mean volume Auto (B ld) [Entitic vol]Ordered By: Geneva Jenkins on 01-20-2025 Platelet mean volume (Bld) [Entitic vol] 10.6 fL 9.5-13.5 [facility] Platelets Auto (Bld) [#/Vol] Ordered By: Geneva Jenkins on 01-20-2025 Platelets (Bld) [#/Vol] 177 10 3/uL 150-450 [facility] RBC Auto (Bld) [#/Vol]Ordere d By: Geneva Jenkins on 01-20-2025 RBC (Bld) [#/Vol] 3.73 10 6/uL Low 4.20-5.40 [facility] Serum or plasma anion gap de terminationOrdered By: Geneva Jenkins on 01-20-2025 Anion gap [Moles/Vol] 15.8 mmol/L [facility] Urine protein/creatinine rat ioOrdered By: Geneva Jenkins on 01-20-2025 Protein/Creatinine (U) [Ratio] 5.45 [facility] Perimetry studyon 11-26-2024 [facility] Radiology Study observation (narrative) [facility] 36on 11-06-2024 36 Regarding echo result from 10/04/2024: MD Michelle Tan MA Please tell her the echo showed normal cardiac function with evidence of extra fluid in the body. Depending on symptoms of shortness of breath, she can take extra 0.5 tablet of bumex on as needed basis. Follow up as planned. Patient informed. She verbalized understanding. Normal [facility] Office Visiton 09-16-2024 Follow-up visit [id number] Claudia Estrella 1950 F Date Provider Department Center 09/16/2024 KARTHIK MACKAY [facility] Family History Problem Relation Age of Onset Heart attack Mother Heart failure Mother Heart attack Father Family Status - Relation Status Age at Mother Father Level of Service:34352 SD OFFICE/OUTPATIENT ESTABLISHED MOD MDM 30 MIN Normal [facility] Erythrocyte distribution wid th Auto (RBC) [Ratio]on 08-26-2024 Erythrocyte distribution width (RBC) [Ratio] Erythrocyte distribution width [Ratio] by Automated count 11.0-15.0 [facility] Estimated glomerular filtrat ion rate (GFR) non- Americanon 08-26-2024 GFR/1.73 sq M.predicted among non-blacks MDRD (S/P/Bld) [Vol rate/Area] Estimated glomerular filtration rate (GFR) non- Low >=60 mL/min/1.73m 2 [facility] Hematocrit Auto (Bld) [Volum e fraction]on 08-26-2024 Hematocrit (Bld) [Volume fraction] Hematocrit [Volume Fraction] of Blood by Automated count Low 36.0-48.0 [facility] Hemoglobin [Mass/volume] in Bloodon 08-26-2024 Hemoglobin (Bld) [Mass/Vol] Hemoglobin [Mass/volume] in Blood Low 12.0-16.0 [facility] Iron binding capacity [Mass/ volume] in Serum or Plasmaon 08-26-2024 Iron binding capacity [Mass/Vol] Iron binding capacity [Mass/volume] in Serum or Plasma Low 250.0-450.0 [facility] Iron saturation [Mass Fracti on] in Serum or Plasmaon 08-26-2024 Iron saturation [Mass fraction] Iron saturation [Mass Fraction] in Serum or Plasma [facility] Laboratory - Chemistry and C hemistry - challengeon 08-26-2024 Albumin [Mass/Vol] 3.4 g/dL 3.4-5.0 [facility] Calcium [Mass/Vol] 9.3 mg/dL 8.5-10.1 [facility] Chloride [Moles/Vol] 100 mmol/L 98-107 [facility] CO2 [Moles/Vol] 28.1 mmol/L 21.0-32.0 [facility] Creatinine [Mass/Vol] 2.44 mg/dL High 0.55-1.02 [facility] Ferritin [Mass/Vol] 145.0 ng/mL 8.0-252.0 [facility] GFR/1.73 sq M.predicted MDRD (S/P/Bld) [Vol rate/Area] 24 mL/min/{1.73_m2} Low >=60 mL/min/1.73m 2 [facility] Glucose [Mass/Vol] 162 mg/dL High 74-106 [facility] Iron [Mass/Vol] 53.0 ug/dL 50.0-170.0 [facility] Magnesium [Mass/Vol] 2.0 mg/dL 1.8-2.4 [facility] Potassium [Moles/Vol] 3.2 mmol/L Low 3.5-5.1 [facility] Sodium [Moles/Vol] 140 mmol/L 136-145 [facility] Urate [Mass/Vol] 6.3 mg/dL High 2.6-6.0 [facility] Urea nitrogen [Mass/Vol] 46.0 mg/dL High 7.0-18.0 [facility] Urea nitrogen/Creatinine [Mass ratio] 18.9 mg/mg [facility] Laboratory - Urinalysison Protein (U) [Mass/Vol] 197.4 mg/dL High <=11.9 [facility] Leukocytes [#/volume] correc stacy for nucleated erythrocytes in Blood by Automated counon 08-26-2024 WBC corrected for nucl RBC Auto (Bld) [#/Vol] Leukocytes [#/volume] corrected for nucleated erythrocytes in Blood by Automated coun 4.0-11.0 [facility] MCH Auto (RBC) [Entitic mass ]on 08-26-2024 MCH (RBC) [Entitic mass] MCH [Entitic ma ss] by Automated count 26.7-34.0 [facility] MCHC Auto (RBC) [Mass/Vol]on 08-26-2024 MCHC (RBC) [Mass/Vol] MCHC [Mass/volume] by Automated count 29.9-35.2 [facility] MCV Auto (RBC) [Entitic vol] on 08-26-2024 MCV (RBC) [Entitic vol] MCV [Entitic vol ume] by Automated count 81.0-99.0 [facility] No Panel Informationon 08-26 25-Hydroxy Vitamin D Total 51.6 ng/mL [facility] Comment on above: <20 ng/mL Vit D defi cient20-<30 ng/mL Vit D bmwfkaztqiah81-406 ng/mL Vit D sufficient>100 ng/mL Potential Toxicity Parathyroid Hormone (Intact) 78 pg/mL Abnormal 15-65 [facility] Comment on above: Performed at: [address] [id number] Director: Curry Rizzo PhD, Phone: [phone] Phosphorus Level 5.4 mg/dL High 2.6-4.7 [facility] Urine Random Creatinine 39.10 mg/dL 20.00-300.0 0 [facility] Platelet mean volume Auto (B ld) [Entitic vol]on 08-26-2024 Platelet mean volume (Bld) [Entitic vol] Platelet mean volume [Entitic volume] in Blood by Automated count 9.5-13.5 [facility] Platelets Auto (Bld) [#/Vol] on 08-26-2024 Platelets (Bld) [#/Vol] Platelets [#/vol ume] in Blood by Automated count 150-450 [facility] RBC Auto (Bld) [#/Vol]on RBC (Bld) [#/Vol] Erythrocytes [#/volume] in Blood by Automated count Low 4.20-5.40 [facility] Serum or plasma anion gap de terminationon 08-26-2024 Anion gap [Moles/Vol] Serum or plasma anion gap determination [facility] Urine protein/creatinine rat ioon 08-26-2024 Protein/Creatinine (U) [Ratio] Urine protein/creatinine ratio [facility] Ophthalmic OCT panelon 05-15 [facility] Right Eye Images reviewed and comparison [...] layer (NFL) thinning both eyes (OU). Stable. [facility] Radiology Study observation (narrative) [facility] Optical coherence tomography study reporton 05-15-2024 [facility] Radiology Study observation (narrative) [facility] Erythrocyte distribution wid th Auto (RBC) [Ratio]on 05-09-2024 Erythrocyte distribution width (RBC) [Ratio] Erythrocyte distribution width [Ratio] by Automated count High 11.0-15.0 [facility] Estimated glomerular filtrat ion rate (GFR) non- Americanon 05-09-2024 GFR/1.73 sq M.predicted among non-blacks MDRD (S/P/Bld) [Vol rate/Area] Estimated glomerular filtration rate (GFR) non- Low >=60 mL/min/1.73m 2 [facility] Hematocrit Auto (Bld) [Volum e fraction]on 05-09-2024 Hematocrit (Bld) [Volume fraction] Hematocrit [Volume Fraction] of Blood by Automated count Low 36.0-48.0 [facility] Hemoglobin [Mass/volume] in Bloodon 05-09-2024 Hemoglobin (Bld) [Mass/Vol] Hemoglobin [Mass/volume] in Blood Low 12.0-16.0 [facility] Iron binding capacity [Mass/ volume] in Serum or Plasmaon 05-09-2024 Iron binding capacity [Mass/Vol] Iron binding capacity [Mass/volume] in Serum or Plasma 250.0-450.0 [facility] Iron saturation [Mass Fracti on] in Serum or Plasmaon 05-09-2024 Iron saturation [Mass fraction] Iron saturation [Mass Fraction] in Serum or Plasma [facility] Laboratory - Chemistry and C hemistry - challengeon 05-09-2024 Albumin [Mass/Vol] 3.3 g/dL Low 3.4-5.0 [facility] Calcium [Mass/Vol] 9.2 mg/dL 8.5-10.1 [facility] Chloride [Moles/Vol] 103 mmol/L 98-107 [facility] CO2 [Moles/Vol] 25.9 mmol/L 21.0-32.0 [facility] Creatinine [Mass/Vol] 2.24 mg/dL High 0.55-1.02 [facility] Ferritin [Mass/Vol] 151.0 ng/mL 8.0-252.0 [facility] GFR/1.73 sq M.predicted MDRD (S/P/Bld) [Vol rate/Area] 26 mL/min/{1.73_m2} Low >=60 mL/min/1.73m 2 [facility] Glucose [Mass/Vol] 169 mg/dL High 74-106 [facility] Iron [Mass/Vol] 41.0 ug/dL Low 50.0-170.0 [facility] Magnesium [Mass/Vol] 2.0 mg/dL 1.8-2.4 [facility] Potassium [Moles/Vol] 3.6 mmol/L 3.5-5.1 [facility] Sodium [Moles/Vol] 141 mmol/L 136-145 [facility] Urate [Mass/Vol] 5.1 mg/dL 2.6-6.0 [facility] Urea nitrogen [Mass/Vol] 44.0 mg/dL High 7.0-18.0 [facility] Urea nitrogen/Creatinine [Mass ratio] 19.6 mg/mg [facility] Bilirubin Ql (U) Negative NEGATIVE [facility] Glucose (U) [Mass/Vol] Negative NEGATIVE [facility] Ketones Ql (U) Negative NEGATIVE [facility] pH (U) 5.5 [pH] 5.0-9.0 [facility] Specific gravity (U) [Rel density] 1.020 1.005-1.025 [facility] Urobilinogen Qn (U) 0.2 {Kelly'U}/dL 0.2-1.0 [facility] Laboratory - Specimen inform ationon 05-09-2024 Appearance (U) CLEAR CLEAR [facility] Color (U) LT. YELLOW YELLOW [facility] Laboratory - Urinalysison Hyaline casts LM Ql (Urine sed) RARE [facility] Leukocyte esterase Test strip Ql (U) MODERATE Abnormal NEGATIVE [facility] Mucus Ql (Urine sed) TRACE Abnormal NONE SEEN [facility] Nitrite Ql (U) Negative NEGATIVE [facility] Protein (U) [Mass/Vol] 122.0 mg/dL High <=11.9 [facility] Protein Ql (U) 100 mg/dL Abnormal NEG/TRACE [facility] Leukocytes [#/volume] correc stacy for nucleated erythrocytes in Blood by Automated counon 05-09-2024 WBC corrected for nucl RBC Auto (Bld) [#/Vol] Leukocytes [#/volume] corrected for nucleated erythrocytes in Blood by Automated coun 4.0-11.0 [facility] MCH Auto (RBC) [Entitic mass ]on 05-09-2024 MCH (RBC) [Entitic mass] MCH [Entitic ma ss] by Automated count 26.7-34.0 [facility] MCHC Auto (RBC) [Mass/Vol]on 05-09-2024 MCHC (RBC) [Mass/Vol] MCHC [Mass/volume] by Automated count 29.9-35.2 [facility] MCV Auto (RBC) [Entitic vol] on 05-09-2024 MCV (RBC) [Entitic vol] MCV [Entitic vol ume] by Automated count 81.0-99.0 [facility] No Panel Informationon 05-09 25-Hydroxy Vitamin D Total 56.3 ng/mL [facility] Comment on above: <20 ng/mL Vit D defi cient20-<30 ng/mL Vit D pshnkuqwfdsq46-628 ng/mL Vit D sufficient>100 ng/mL Potential Toxicity Parathyroid Hormone (Intact) 9 pg/mL Abnormal 15-65 [facility] Comment on above: Performed at: [facility] [employer] [place] [id number] Director: Curry Rizzo PhD, Phone: [phone] Phosphorus Level 4.8 mg/dL High 2.6-4.7 [facility] Urine Bacteria SMALL #/HPF Abnormal NONE SEEN [facility] Urine Occult Blood Negative NEGATIVE [facility] Urine Other Casts SEEN #/LPF Abnormal NONE SEEN [facility] Urine Other Crystals None Seen #/HPF None Seen [facility] Urine Random Creatinine 62.86 mg/dL 20.00-300.0 0 [facility] Urine RBC 0-2 #/HPF 0-2 [facility] Urine Squamous Epithelial Cells MODERATE #/LPF Abnormal NONE/RARE [facility] Urine WBC 2-5 #/HPF Abnormal NONE SEEN [facility] Platelet mean volume Auto (B ld) [Entitic vol]on 05-09-2024 Platelet mean volume (Bld) [Entitic vol] Platelet mean volume [Entitic volume] in Blood by Automated count 9.5-13.5 [facility] Platelets Auto (Bld) [#/Vol] on 05-09-2024 Platelets (Bld) [#/Vol] Platelets [#/vol ume] in Blood by Automated count 150-450 [facility] RBC Auto (Bld) [#/Vol]on RBC (Bld) [#/Vol] Erythrocytes [#/volume] in Blood by Automated count Low 4.20-5.40 [facility] Serum or plasma anion gap de terminationon 05-09-2024 Anion gap [Moles/Vol] Serum or plasma anion gap determination [facility] Urine protein/creatinine rat ioon 05-09-2024 Protein/Creatinine (U) [Ratio] Urine protein/creatinine ratio [facility] Albumin [Mass/volume] in Ser um or Plasmaon 01-01-2024 Albumin [Mass/Vol] 3.5 g/dL 2.9-4.4 [facility] Erythrocyte distribution wid th Auto (RBC) [...] above: No monoclonality det ected.Performed at: - [address] [id number] Director: Curry Rizzo PhD, Phone: [phone] Immunoglobulin light chains. kappa.free [Mass/volume] in Serumon 01-01-2024 Immunoglobulin light chains.kappa.free (S) [Mass/Vol] 75.5 mg/L Abnormal 3.3-19.4 [facility] Immunoglobulin light chains. kappa.free/Immunoglobulin light chains.lambda.free [Priscilla 01-01-2024 Immunoglobulin light chains.kappa.free/Immuno globulin light chains.lambda.free (S) [Mass ratio] 1.25 0.26-1.65 [facility] Comment on above: Performed at: [address] [id number] Director: Curry Rizzo PhD, Phone: [phone] Immunoglobulin light chains. lambda.free [Mass/volume] in Serum [...] 01-01-2024 Albumin [Mass/Vol] 3.3 g/dL Low 3.4-5.0 [facility] Calcium [Mass/Vol] 9.2 mg/dL 8.5-10.1 [facility] Chloride [Moles/Vol] 103 mmol/L 98-107 [facility] CO2 [Moles/Vol] 27.3 mmol/L 21.0-32.0 [facility] Creatinine [Mass/Vol] 2.28 mg/dL High 0.55-1.02 [facility] Ferritin [Mass/Vol] 123.0 ng/mL 8.0-252.0 [facility] GFR/1.73 sq M.predicted MDRD (S/P/Bld) [Vol rate/Area] 26 mL/min/{1.73_m2} Low >=60 [facility] Glucose [Mass/Vol] 139 mg/dL High 74-106 [facility] Iron [Mass/Vol] 43.0 ug/dL Low 50.0-170.0 [facility] Magnesium [Mass/Vol] 2.3 mg/dL 1.8-2.4 [facility] Potassium [Moles/Vol] 4.4 mmol/L 3.5-5.1 [facility] Sodium [Moles/Vol] 138 mmol/L 136-145 [facility] Urate [Mass/Vol] 5.9 mg/dL 2.6-6.0 [facility] Urea nitrogen [Mass/Vol] 50.0 mg/dL High 7.0-18.0 [facility] Urea nitrogen/Creatinine [Mass ratio] 21.9 mg/mg [facility] Laboratory - Urinalysison Protein (U) [Mass/Vol] 93.2 mg/dL High <=11.9 [facility] Leukocytes [#/volume] correc stacy for nucleated erythrocytes in Blood by Automated counon 01-01-2024 WBC corrected for nucl RBC Auto (Bld) [#/Vol] 8.9 10 3/uL 4.0-11.0 [facility] MCH Auto (RBC) [Entitic mass ]on 01-01-2024 MCH (RBC) [Entitic mass] 27.4 pg 26.7-34.0 [facility] MCHC Auto (RBC) [Mass/Vol]on 01-01-2024 MCHC (RBC) [Mass/Vol] 32.1 g/dL 29.9-35.2 [facility] MCV Auto (RBC) [Entitic vol] on 01-01-2024 MCV (RBC) [Entitic vol] 85.3 fL 81.0-99.0 [facility] No Panel Informationon 12-31 25-Hydroxy Vitamin D Total 53.8 ng/mL [facility] Comment on above: <20 ng/mL Vit D defi cient20-<30 ng/mL Vit D jazrvcydptar96-566 ng/mL Vit D sufficient>100 ng/mL Potential Toxicity Parathyroid Hormone (Intact) 95 pg/mL Abnormal 15-65 [facility] Comment on above: Performed at: - L [address] [id number] Director: Curry Rizzo PhD, Phone: [phone] Phosphorus Level 4.0 mg/dL 2.6-4.7 [facility] Protein Electrophoresis M-Edward Not Observed g/dL Not Observed [facility] Protein Electrophoresis Note Comment . [facility] Comment on above: Protein electrophore sis scan will follow via computer,mail, or milking machine operator delivery. Urine Random Creatinine 88.24 mg/dL 20.00-300.0 [...] Plasmaon 01-01-2024 Protein [Mass/Vol] 7.0 g/dL 6.0-8.5 [facility] RBC Auto (Bld) [#/Vol]on RBC (Bld) [#/Vol] 3.80 10 6/uL Low 4.20-5.40 [facility] Serum globulin measurement ( mass/volume)on 01-01-2024 Globulin (S) [Mass/Vol] 3.5 g/dL 2.2-3.9 [facility] Serum or plasma albumin/glob ulin [...] 01-01-2024 Anion gap [Moles/Vol] 12.1 mmol/L [facility] Serum or plasma beta globuli n [...] (U) [Ratio] 1.06 [facility] BNPon 10-26-2022 Natriuretic peptide B (Bld) [Mass/Vol] 1458.0 pg/mL Critically high <=900.0 [facility] Comment on above: Performed By: #### L IPID, TSH, FT3 #### [facility] [address] [place] [address] Dr. Andrey Hargrove CBC AUTO DIFFon 10-26-2022 BASO # 0.1 103/ul Normal 0.0-0.1 [facility] Comment on above: Performed By: #### V ITAD, FETIBC, FERR #### [facility] [address] [address] [address] Andrey Hargrove Basophils/100 WBC (Bld) 0.7 % Normal 0.2-2.0 [facility] Comment on above: Performed By: #### V ITAD, FETIBC, FERR #### [facility] [address] [place] [address] Dr. Andrey Hargrove EO # 0.4 103/ul Normal 0.0-0.7 [facility] Comment on above: Performed By: #### V ITAD, FETIBC, FERR #### [facility] [address] [place] [address] Dr. Andrey Hargrove Eosinophils/100 WBC (Bld) 4.6 % Normal 0.9-7.0 [facility] Comment on above: Performed By: #### V ITAD, FETIBC, FERR #### [facility] [address] [place] [address] Dr. Andrey Hargrove Erythrocyte distribution width (RBC) [Ratio] 13.7 % Normal 11.0-15.0 [facility] Comment on above: Performed By: #### V ITAD, FETIBC, FERR #### [facility] [address] [place] [address] Dr. Andrey Hargrove Hematocrit (Bld) [Volume fraction] 35.5 % Critically low 36.0-48.0 [facility] Comment on above: Performed By: #### V ITAD, FETIBC, FERR #### [facility] [address] [place] [address] Dr. Andrey Hargrove Hemoglobin (Bld) [Mass/Vol] 12.0 g/dL Normal 12.0-16.0 [facility] Comment on above: Performed By: #### V ITAD, FETIBC, FERR #### [facility] [address] [place] [address] Dr. Andrey Hargrove IG # 0.02 10e3/ul Normal 0.00-0.03 [facility] Comment on above: Performed By: #### V ITAD, FETIBC, FERR #### [facility] [address] [place] [address] Dr. Andrey Hargrove IG % 0.2 % Normal 0.0-0.5 [facility] Comment on above: Performed By: #### V ITAD, FETIBC, FERR #### [facility] [address] [place] [address] Dr. Andrey Hargrove LYMPH # 1.5 103/ul Normal 1.2-3.8 [facility] Comment on above: Performed By: #### V ITAD, FETIBC, FERR #### [facility] [address] [place] [address] Dr. Andrey Hargrove Lymphocytes/100 WBC (Bld) 18.1 % Critically low 20.5-60.0 [facility] Comment on above: Performed By: #### V ITAD, FETIBC, FERR #### [facility] [address] [place] [address] Dr. Andrey Hargrove MANUAL DIFF REQ NO Normal [facility] Comment on above: Performed By: #### V ITAD, FETIBC, FERR #### [facility] [address] [place] [address] Dr. Andrey Hargrove MCH (RBC) [Entitic mass] 29.3 pg Normal 26.7-34.0 [facility] Comment on above: Performed By: #### V ITAD, FETIBC, FERR #### [facility] [address] [place] [address] Dr. Andrey Hargrove MCHC (RBC) [Mass/Vol] 33.8 g/dL Normal 29.9-35.2 [facility] Comment on above: Performed By: #### V ITAD, FETIBC, FERR #### [facility] [address] [place] [address] Dr. Andrey Hargrove MCV (RBC) [Entitic vol] 86.8 fL Normal 81.0-99.0 [facility] Comment on above: Performed By: #### V ITAD, FETIBC, FERR #### [facility] [address] [place] [address] Dr. Andrey Hargrove MONO # 0.7 103/ul Normal 0.3-0.8 [facility] Comment on above: Performed By: #### V ITAD, FETIBC, FERR #### [facility] [address] [place] [address] Dr. Andrey Hargrove Monocytes/100 WBC (Bld) 7.9 % Normal 1.7-12.0 [facility] Comment on above: Performed By: #### V ITAD, FETIBC, FERR #### [facility] [address] [place] [address] Dr. Andrey Hargrove NEUT # 5.7 103/ul Normal 1.4-6.5 [facility] Comment on above: Performed By: #### V ITAD, FETIBC, FERR #### [facility] [address] [place] [address] Dr. Andrey Hargrove Neutrophils/100 WBC (Bld) 68.5 % Normal 43.0-75.0 [facility] Comment on above: Performed By: #### V ITAD, FETIBC, FERR #### [facility] [address] [place] [address] Dr. Andrey Hargrove Platelet mean volume (Bld) [Entitic vol] 10.4 fL Normal 9.5-13.5 [facility] Comment on above: Performed By: #### V ITAD, FETIBC, FERR #### [facility] [address] [place] [address] Dr. Andrey Hargrove PLT 204 103/ul Normal 150-450 [facility] Comment on above: Performed By: #### V ITAD, FETIBC, FERR #### [facility] [address] [place] [address] Dr. Andrey Hargrove RBC 4.09 106/ul Critically low 4.20-5.40 [facility] Comment on above: Performed By: #### V ITAD, FETIBC, FERR #### [facility] [address] [place] [address] Dr. Andrey Hargrove WBC 8.3 103/ul Normal 4.0-11.0 [facility] Comment on above: Performed By: #### V ITAD, FETIBC, FERR #### [facility] [address] [place] [address] Dr. Andrey Hargrove PROF CHEM 8 (BAS METB)on Anion gap [Moles/Vol] 11.1 mmol/L Normal [facility] Comment on above: Performed By: #### L IPID, TSH, FT3 #### [facility] [address] [place] [address] Dr. Andrey Hargrove Calcium [Mass/Vol] 9.2 mg/dL Normal 8.5-10.1 [facility] Comment on above: Performed By: #### L IPID, TSH, FT3 #### [facility] [address] [address] [address] Andrey Hargrove Chloride [Moles/Vol] 102 mmol/L Normal 98-107 [facility] Comment on above: Performed By: #### L IPID, TSH, FT3 #### [facility] [address] [place] [address] Dr. Andrey Hargrove CO2 [Moles/Vol] 31.2 mmol/L Normal 21.0-32.0 [facility] Comment on above: Performed By: #### L IPID, TSH, FT3 #### [facility] [address] [place] [address] Dr. Andrey Hargrove Creatinine [Mass/Vol] 1.79 mg/dL Critically high 0.55-1.02 [facility] Comment on above: Performed By: #### L IPID, TSH, FT3 #### [facility] [address] [place] [address] Dr. Andrey Hargrove EGFR-AF MAURITANIAN 34 mL/min/1.73m2 Critically low >=60 [facility] Comment on above: Performed By: #### L IPID, TSH, FT3 #### [facility] [address] [place] [address] Dr. Andrey Hargrove EGFR-NON AF MAURITANIAN 28 mL/min/1.73m2 Critically low >=60 [facility] Comment on above: Performed By: #### L IPID, TSH, FT3 #### [facility] [address] [place] [address] Dr. Andrey Hargrove Glucose [Mass/Vol] 148 mg/dL Critically high 74-106 [facility] Comment on above: Performed By: #### L IPID, TSH, FT3 #### [facility] [address] [place] [address] Dr. Andrey Hargrove Potassium [Moles/Vol] 3.3 mmol/L Critically low 3.5-5.1 [facility] Comment on above: Performed By: #### L IPID, TSH, FT3 #### [facility] [address], [place] [address] Dr. Andrey Hargrove Sodium [Moles/Vol] 141 mmol/L Normal 136-145 [facility] Comment on above: Performed By: #### L IPID, TSH, FT3 #### [facility] [address], [place] [address] Dr. Andrey Hargrove Urea nitrogen [Mass/Vol] 41.0 mg/dL Critically high 7.0-18 .0 [facility] Comment on above: Performed By: #### L IPID, TSH, FT3 #### [facility] [address], [place] [address] Dr. Andrey Hargrove Urea nitrogen/Creatinine [Mass ratio] 22.9 mg/mg Normal [facility] Comment on above: Performed By: #### L IPID, TSH, FT3 #### [facility] [address], [place] [address] Dr. Andrey Hargrove PTH INTACTon 08-24-2022 PTH, Intact 44 pg/mL Normal 15-65 [facility] Comment on above: Performed By: #### V ITAD, FETIBC, FERR #### [facility] [address] [id number] [address] Andrey Hargrove US THYROIDon 08-24-2022 US [...] by: RENETTA RENEE Date: 2022-08-24 16:16 Normal [facility] FERRITINon 08-23-2022 Ferritin [Mass/Vol] 114.0 ng/mL Normal 8.0-252.0 [facility] Comment on above: Performed By: #### V ITAD, FETIBC, FERR #### [facility] [address] [place] [address] Dr. Andrey Hargrove HEMOGRAM AND PLATELon 2022 Hematocrit (Bld) [Volume fraction] 34.9 % Critically low 36.0-48.0 [facility] Comment on above: Performed By: #### V ITAD, FETIBC, FERR #### [facility] [address] [place] [address] Dr. Andrey Hargrove Hemoglobin (Bld) [Mass/Vol] 11.8 g/dL Critically low 12.0-16.0 [facility] Comment on above: Performed By: #### V ITAD, FETIBC, FERR #### [facility] [address] [place] [address] Dr. Andrey Hargrove MCH (RBC) [Entitic mass] 28.6 pg Normal 26.7-34.0 [facility] Comment on above: Performed By: #### V ITAD, FETIBC, FERR #### [facility] [address] [place] [address] Dr. Andrey Hargrove MCHC (RBC) [Mass/Vol] 33.8 g/dL Normal 29.9-35.2 [facility] Comment on above: Performed By: #### V ITAD, FETIBC, FERR #### [facility] [address] [place] [address] Dr. Andrey Hargrove MCV (RBC) [Entitic vol] 84.7 fL Normal 81.0-99.0 [facility] Comment on above: Performed By: #### V ITAD, FETIBC, FERR #### [facility] [address] [place] [address] Dr. Andrey Hargrove PLT 215 103/ul Normal 150-450 [facility] Comment on above: Performed By: #### V ITAD, FETIBC, FERR #### [facility] [address] [place] [address] Dr. Andrey Hargrove RBC 4.12 106/ul Critically low 4.20-5.40 [facility] Comment on above: Performed By: #### V ITAD, FETIBC, FERR #### [facility] [address] [place] [address] Dr. Andrey Hargrove WBC 9.2 103/ul Normal 4.0-11.0 [facility] Comment on above: Performed By: #### V ITAD, FETIBC, FERR #### [facility] [address] [place] [address] Dr. Andrey Hargrove IRON AND TIBCon 08-23-2022 % SATURATION 15.4 % Normal [facility] Comment on above: Performed By: #### V ITAD, FETIBC, FERR #### [facility] [address] [place] [address] Dr. Andrey Hargrove Iron [Mass/Vol] 44.0 ug/dL Critically low 50.0-170.0 [facility] Comment on above: Performed By: #### V ITAD, FETIBC, FERR #### [facility] [address] [place] [address] Dr. Andrey Hargrove TIBC DIRECT 286.0 ug/dL Normal 250.0-450.0 [facility] Comment on above: Performed By: #### V ITAD, FETIBC, FERR #### [facility] [address] [place] [address] Dr. Andrey Hargrove MAGNESIUMon 08-23-2022 Magnesium [Mass/Vol] 2.1 mg/dL Normal 1.8-2.4 [facility] Comment on above: Performed By: #### L IPID, TSH, FT3 #### [facility] [address] [place] [address] Dr. Andrey Hargrove RENAL FUNCTION PANELon 08-23 Albumin [Mass/Vol] 3.3 g/dL Critically low 3.4-5.0 [facility] Comment on above: Performed By: #### L IPID, TSH, FT3 #### [facility] [address] [place] [address] Dr. Andrey Hargrove Calcium [Mass/Vol] 9.4 mg/dL Normal 8.5-10.1 [facility] Comment on above: Performed By: #### L IPID, TSH, FT3 #### [facility] [address] [place] [address] Dr. Andrey Hargrove Chloride [Moles/Vol] 103 mmol/L Normal 98-107 [facility] Comment on above: Performed By: #### L IPID, TSH, FT3 #### [facility] [address] [place] [address] Dr. Andrey Hargrove CO2 [Moles/Vol] 26.8 mmol/L Normal 21.0-32.0 [facility] Comment on above: Performed By: #### L IPID, TSH, FT3 #### [facility] [address] [place] [address] Dr. Andrey Hargrove Creatinine [Mass/Vol] 1.94 mg/dL Critically high 0.55-1.02 [facility] Comment on above: Performed By: #### L IPID, TSH, FT3 #### [facility] [address] [place] [address] Dr. Andrey Hargrove EGFR-AF MAURITANIAN 31 mL/min/1.73m2 Critically low >=60 [facility] Comment on above: Performed By: #### L IPID, TSH, FT3 #### [facility] [address] [place] [address] Dr. Andrey Hargrove EGFR-NON AF MAURITANIAN 25 mL/min/1.73m2 Critically low >=60 [facility] Comment on above: Performed By: #### L IPID, TSH, FT3 #### [facility] [address] [place] [address] Dr. Andrey Hargrove Glucose [Mass/Vol] 166 mg/dL Critically high 74-106 [facility] Comment on above: Performed By: #### L IPID, TSH, FT3 #### [facility] [address] [place] [address] Dr. Andrey Hargrove Phosphate [Mass/Vol] 4.6 mg/dL Normal 2.6-4.7 [facility] Comment on above: Performed By: #### L IPID, TSH, FT3 #### [facility] [address] [place] [address] Dr. Andrey Hargrove Potassium [Moles/Vol] 4.3 mmol/L Normal 3.5-5.1 [facility] Comment on above: Performed By: #### L IPID, TSH, FT3 #### [facility] [address] [place] [address] Dr. Andrey Hargrove Sodium [Moles/Vol] 137 mmol/L Normal 136-145 [facility] Comment on above: Performed By: #### L IPID, TSH, FT3 #### [facility] [address] [place] [address] Dr. Andrey Hargrove Urea nitrogen [Mass/Vol] 39.0 mg/dL Critically high 7.0-18 .0 [facility] Comment on above: Performed By: #### L IPID, TSH, FT3 #### [facility] [address] [place] [address] Dr. Andrey Hargrove UA RANDOM W/MICROSCOPICon BACTERIA NONE SEEN Normal NONE SEEN [facility] Comment on above: Performed By: #### V ITAD, FETIBC, FERR #### [facility] [address] [place] [address] Dr. Andrey Hargrove Bilirubin Ql (U) Negative Normal NEGATIVE [facility] Comment on above: Performed By: #### V ITAD, FETIBC, FERR #### [facility] [address] [place] [address] Dr. Andrey Hargrove CAST NONE SEEN Normal NONE SEEN [facility] Comment on above: Performed By: #### V ITAD, FETIBC, FERR #### [facility] [address] [address] [address] Andrey Hargrove Clarity (U) CLEAR Normal CLEAR [facility] Comment on above: Performed By: #### V ITAD, FETIBC, FERR #### [facility] [address] [address] [address] Andrey Hargrove Color (U) LT. YELLOW Normal YELLOW [facility] Comment on above: Performed By: #### V ITAD, FETIBC, FERR #### [facility] [address] [address] [address] Andrey Hargrove Crystals LM Nom (Urine sed) NONE SEEN Normal NONE SEEN [facility] Comment on above: Performed By: #### V ITAD, FETIBC, FERR #### [facility] [address] [place] [address] Dr. Andrey Hargrove Epithelial cells LM Ql (Urine sed) RARE Normal NONE SEEN /RARE [facility] Comment on above: Performed By: #### V ITAD, FETIBC, FERR #### [facility] [address] [place] [address] Dr. Andrey Hargrove Glucose Ql (U) Negative Normal NEGATIVE [facility] [place] Comment on above: Performed By: #### V ITAD, FETIBC, FERR #### [facility] [address] [place] [address] Dr. Andrey Hargrove Hemoglobin Ql (U) Negative Normal NEGATIVE [facility] Comment on above: Performed By: #### V ITAD, FETIBC, FERR #### [facility] [address] [place] [address] Dr. Andrey Hargrove Ketones Ql (U) Negative Normal NEGATIVE [facility] [place] Comment on above: Performed By: #### V ITAD, FETIBC, FERR #### [facility] [address] [place] [address] Dr. Andrey Hargrove LEUKOCYTES Negative Normal NEGATIVE [facility] Comment on above: Performed By: #### V ITAD, FETIBC, FERR #### [facility] [address] [place] [address] Dr. Andrey Hargrove MUCOUS NONE SEEN Normal NONE SEEN [facility] Comment on above: Performed By: #### V ITAD, FETIBC, FERR #### [facility] [address] [place] [address] Dr. Andrey Hargrove Nitrite Ql (U) Negative Normal NEGATIVE [facility] [place] Comment on above: Performed By: #### V ITAD, FETIBC, FERR #### [facility] [address] [place] [address] Dr. Andrey Hargrove pH (U) 6.5 [pH] Normal 5-9 [facility] Comment on above: Performed By: #### V ITAD, FETIBC, FERR #### [facility] [address] [place] [address] Dr. Andrey Hargrove RBC NONE SEEN Abnormal 0-2 [facility] Comment on above: Performed By: #### V ITAD, FETIBC, FERR #### [facility] [address] [place] [address] Dr. Andrey Hargrove SPEC GRAVITY 1.010 Normal 1.005-<=1.02 5 [facility] Comment on above: Performed By: #### V ITAD, FETIBC, FERR #### [facility] [address] [place] [address] Dr. Andrey Hargrove UA PROTEIN 30 mg/dl Abnormal NEGATIVE/ TRACE [facility] Comment on above: Performed By: #### V ITAD, FETIBC, FERR #### [facility] [address] [place] [address] Dr. Andrey Hargrove Urobilinogen Qn (U) 0.2 {Kelly'U}/dL Normal 0.2 - 1. 0 [facility] Comment on above: Performed By: #### V ITAD, FETIBC, FERR #### [facility] [address] [place] [address] Dr. Andrey Hargrove WBC NONE SEEN Normal NONE SEEN [facility] Comment on above: Performed By: #### V ITAD, FETIBC, FERR #### [facility] [address] [place] [address] Dr. Andrey Hargrove URIC ACID SERUMon 08-23-2022 Urate [Mass/Vol] 5.8 mg/dL Normal 2.6-6.0 [facility] Comment on above: Performed By: #### L IPID, TSH, FT3 #### [facility] [address] [place] [address] Dr. Andrey Harrgove VITAMIN D 25 OHon 08-23-2022 VIT D 25-OH 69.0 ng/mL Normal [facility] Comment on above: Performed By: #### V ITAD, FETIBC, FERR #### [facility] [address] [place] [address] Dr. Andrey Hargrove VIT D RANGES SEE BELOW Normal [facility] Comment on above: Result Comment: <20 ng/mL Vit D deficient 20 - <30 ng/mL Vit D insufficient 30 - 100 ng/mL Vit D sufficient >100 ng/mL Potential Toxicity Performed By: #### V ITAD, FETIBC, FERR #### [facility] [address] [place] [address] Dr. Andrey Hargrove ECHOCARDIO M/2D COMPLETEon 1 08-14-2021 ECHOCARDIO M/2D COMPLETE Patient: CLAUDIA ESTRELLA Exam Date: 06/13/2022 : 1950 Gender:F Ordering : DR KARTHIK FISH M.D. Admission #: [id number] Family : Order #: [id number] CLICK HERE TO VIEW EXAM ECHOCARDIOGRAM REPORT [...] Fish M.D. on 06/14/2022 at 17:50 Normal [facility] BNPon 06-10-2022 Natriuretic peptide B (Bld) [Mass/Vol] 4197.0 pg/mL Critically high <=900.0 [facility] Comment on above: Performed By: #### L IPID, TSH, FT3 #### [facility] [address] [place] [address] Dr. Andrey Hargrove PROF CHEM 8 (BAS METB)on Anion gap [Moles/Vol] 10.4 mmol/L Normal [facility] Comment on above: Performed By: #### V ITAD, FETIBC, FERR #### [facility] [facility] [address] [address] [address] Andrey Hargrove Calcium [Mass/Vol] 9.4 mg/dL Normal 8.5-10.1 [facility] Comment on above: Performed By: #### V ITAD, FETIBC, FERR #### [facility] [address] [address] [address] Andrey Hargrove Chloride [Moles/Vol] 99 mmol/L Normal 98-107 [facility] Comment on above: Performed By: #### V ITAD, FETIBC, FERR #### [facility] [address] [address] [address] Andrey Hargrove CO2 [Moles/Vol] 33.8 mmol/L Critically high 21.0-32.0 [facility] Comment on above: Performed By: #### V ITAD, FETIBC, FERR #### [facility] [address] [place] [address] Dr. Andrey Hargrove Creatinine [Mass/Vol] 2.09 mg/dL Critically high 0.55-1.02 [facility] Comment on above: Performed By: #### V ITAD, FETIBC, FERR #### [facility] [address] [place] [address] Dr. Andrey Hargrove EGFR-AF MAURITANIAN 28 mL/min/1.73m2 Critically low >=60 [facility] Comment on above: Performed By: #### V ITAD, FETIBC, FERR #### [facility] [address] [place] [address] Dr. Andrey Hargrove EGFR-NON AF MAURITANIAN 23 mL/min/1.73m2 Critically low >=60 [facility] Comment on above: Performed By: #### V ITAD, FETIBC, FERR #### [facility] [address] [place] [address] Dr. Andrey Hargrove Glucose [Mass/Vol] 75 mg/dL Normal 74-106 [facility] Comment on above: Performed By: #### V ITAD, FETIBC, FERR #### [facility] [address] [place] [address] Dr. Andrey Hargrove Potassium [Moles/Vol] 3.2 mmol/L Critically low 3.5-5.1 [facility] Comment on above: Performed By: #### V ITAD, FETIBC, FERR #### [facility] [address] [place] [address] Dr. Andrey Hargrove Sodium [Moles/Vol] 140 mmol/L Normal 136-145 [facility] Comment on above: Performed By: #### V ITAD, FETIBC, FERR #### [facility] [address] [place] [address] Dr. Andrey Hargrove Urea nitrogen [Mass/Vol] 61.0 mg/dL Critically high 7.0-18 .0 [facility] Comment on above: Performed By: #### V ITAD, FETIBC, FERR #### [facility] [address] [place] [address] Dr. Andrey Hargrove Urea nitrogen/Creatinine [Mass ratio] 29.2 mg/mg Normal [facility] Comment on above: Performed By: #### V ITAD, FETIBC, FERR #### [facility] [address] [place] [address] Dr. Andrey Hargrove BNPon 06-02-2022 Natriuretic peptide B (Bld) [Mass/Vol] 9365.0 pg/mL Critically high <=900.0 [facility] Comment on above: Performed By: #### V ITAD, FETIBC, FERR #### [facility] [address] [place] [address] Dr. Andrey Hargrove PROF CHEM 8 (BAS METB)on Anion gap [Moles/Vol] 10.7 mmol/L Normal [facility] Comment on above: Performed By: #### V ITAD, FETIBC, FERR #### [facility] [address] [place] [address] Dr. Andrey Hargrove Calcium [Mass/Vol] 9.1 mg/dL Normal 8.5-10.1 [facility] Comment on above: Performed By: #### V ITAD, FETIBC, FERR #### [facility] [address] [place] [address] Dr. Andrey Hargrove Chloride [Moles/Vol] 98 mmol/L Normal 98-107 [facility] Comment on above: Performed By: #### V ITAD, FETIBC, FERR #### [facility] [address] [place] [address] Dr. Andrey Hargrove CO2 [Moles/Vol] 29.4 mmol/L Normal 21.0-32.0 [facility] Comment on above: Performed By: #### V ITAD, FETIBC, FERR #### [facility] [address] [place] [address] Dr. Andrey Hargrove Creatinine [Mass/Vol] 2.44 mg/dL Critically high 0.55-1.02 [facility] Comment on above: Performed By: #### V ITAD, FETIBC, FERR #### [facility] [address] [place] [address] Dr. Andrey Hargrove EGFR-AF MAURITANIAN 24 mL/min/1.73m2 Critically low >=60 [facility] Comment on above: Performed By: #### V ITAD, FETIBC, FERR #### [facility] [address] [place] [address] Dr. Andrey Hargrove EGFR-NON AF MAURITANIAN 20 mL/min/1.73m2 Critically low >=60 [facility] Comment on above: Performed By: #### V ITAD, FETIBC, FERR #### [facility] [address] [place] [address] Dr. Andrey Hargrove Glucose [Mass/Vol] 135 mg/dL Critically high 74-106 [facility] Comment on above: Performed By: #### V ITAD, FETIBC, FERR #### [facility] [address] [place] [address] Dr. Andrey Hargrove Potassium [Moles/Vol] 4.1 mmol/L Normal 3.5-5.1 [facility] Comment on above: Performed By: #### V ITAD, FETIBC, FERR #### [facility] [address] [place] [address] Dr. Andrey Hargrove Sodium [Moles/Vol] 134 mmol/L Critically low 136-145 [facility] Comment on above: Performed By: #### V ITAD, FETIBC, FERR #### [facility] [address] [place] [address] Dr. Andrey Hargrove Urea nitrogen [Mass/Vol] 81.0 mg/dL Critically high 7.0-18 .0 [facility] Comment on above: Performed By: #### V ITAD, FETIBC, FERR #### [facility] [address] [place] [address] Dr. Andrey Hargrove Urea nitrogen/Creatinine [Mass ratio] 33.2 mg/mg Normal [facility] Comment on above: Performed By: #### V ITAD, FETIBC, FERR #### [facility] [address] [address] [address] Andrey Hargrove XR ELBOW RT MIN [...] BETSY LAZARO Date: 2022-06-01 17:24 Normal [facility] RENAL FUNCTION PANELon 05-27 Albumin [Mass/Vol] 3.4 g/dL Normal 3.4-5.0 [facility] Comment on above: Performed By: #### L IPID, TSH, FT3 #### [facility] [address] [address] [address] Andrey Hargrove Calcium [Mass/Vol] 9.1 mg/dL Normal 8.5-10.1 [facility] Comment on above: Performed By: #### L IPID, TSH, FT3 #### [facility] [address] [address] [address] Andrey Hargrove Chloride [Moles/Vol] 99 mmol/L Normal 98-107 [facility] Comment on above: Performed By: #### L IPID, TSH, FT3 #### [facility] [address] [address] [address] Andrey Hargrove CO2 [Moles/Vol] 30.9 mmol/L Normal 21.0-32.0 [facility] Comment on above: Performed By: #### L IPID, TSH, FT3 #### [facility] [address] [address] [address] Andrey Hargrove Creatinine [Mass/Vol] 2.24 mg/dL Critically high 0.55-1.02 [facility] Comment on above: Performed By: #### L IPID, TSH, FT3 #### [facility] [address] [place] [address] Dr. Andrey Hargrove EGFR-AF MAURITANIAN 26 mL/min/1.73m2 Critically low >=60 [facility] Comment on above: Performed By: #### L IPID, TSH, FT3 #### [facility] [address] [place] [address] Dr. Andrey Hargrove EGFR-NON AF MAURITANIAN 22 mL/min/1.73m2 Critically low >=60 [facility] Comment on above: Performed By: #### L IPID, TSH, FT3 #### [facility] [address] [place] [address] Dr. Andrey Hargrove Glucose [Mass/Vol] 94 mg/dL Normal 74-106 [facility] Comment on above: Performed By: #### L IPID, TSH, FT3 #### [facility] [address] [place] [address] Dr. Andrey Hargrove Phosphate [Mass/Vol] 4.7 mg/dL Normal 2.6-4.7 [facility] Comment on above: Performed By: #### L IPID, TSH, FT3 #### [facility] [address] [place] [address] Dr. Andrey Hargrove Potassium [Moles/Vol] 3.5 mmol/L Normal 3.5-5.1 [facility] Comment on above: Performed By: #### L IPID, TSH, FT3 #### [facility] [address] [place] [address] Dr. Andrey Hargrove Sodium [Moles/Vol] 136 mmol/L Normal 136-145 [facility] Comment on above: Performed By: #### L IPID, TSH, FT3 #### [facility] [address] [place] [address] Dr. Andrey Hargrove Urea nitrogen [Mass/Vol] 72.0 mg/dL Critically high 7.0-18 .0 [facility] Comment on above: Performed By: #### L IPID, TSH, FT3 #### [facility] [address] [place] [address] Dr. Andrey Hargrove PTH INTACTon 05-24-2022 PTH, Intact 24 pg/mL Normal 15-65 [facility] Comment on above: Performed By: #### L IPID, TSH, FT3 #### [facility] [address] [place] [address] Dr. Andrey Hargrove FERRITINon 05-23-2022 Ferritin [Mass/Vol] 190.0 ng/mL Normal 8.0-252.0 [facility] Comment on above: Performed By: #### L IPID, TSH, FT3 #### [facility] [address] [place] [address] Dr. Andrey Hargrove FREE T3on 05-23-2022 FREE T3 1.96 pg/mlL Critically low 2.18-3.98 [facility] Comment on above: Performed By: #### L IPID, TSH, FT3 #### [facility] [address] [place] [address] Dr. Andrey Hargrove FREE T4on 05-23-2022 Free T4 [Mass/Vol] 1.33 ng/dL Normal 0.76-1.46 [facility] Comment on above: Performed By: #### L IPID, TSH, FT3 #### [facility] [address] [place] [address] Dr. Andrey Hargrove HEMOGRAM AND PLATELon 2021 Hematocrit (Bld) [Volume fraction] 30.6 % Critically low 36.0-48.0 [facility] Comment on above: Performed By: #### V ITAD, FETIBC, FERR #### [facility] [address] [place] [address] Dr. Andrey Hargrove Hemoglobin (Bld) [Mass/Vol] 10.4 g/dL Critically low 12.0-16.0 [facility] Comment on above: Performed By: #### V ITAD, FETIBC, FERR #### [facility] [address] [place] [address] Dr. Andrey Hargrove MCH (RBC) [Entitic mass] 28.6 pg Normal 26.7-34.0 [facility] Comment on above: Performed By: #### V ITAD, FETIBC, FERR #### [facility] [address] [place] [address] Dr. Andrey Hargrove MCHC (RBC) [Mass/Vol] 34.0 g/dL Normal 29.9-35.2 [facility] Comment on above: Performed By: #### V ITAD, FETIBC, FERR #### [facility] [address] [place] [address] Dr. Andrey Hargrove MCV (RBC) [Entitic vol] 84.1 fL Normal 81.0-99.0 [facility] Comment on above: Performed By: #### V ITAD, FETIBC, FERR #### [facility] [address] [place] [address] Dr. Andrey Hargrove PLT 179 103/ul Normal 150-450 [facility] Comment on above: Performed By: #### V ITAD, FETIBC, FERR #### [facility] [address] [place] [address] Dr. Andrey Hargrove RBC 3.64 106/ul Critically low 4.20-5.40 [facility] Comment on above: Performed By: #### V ITAD, FETIBC, FERR #### [facility] [address] [place] [address] Dr. Andrey Hargrove WBC 9.5 103/ul Normal 4.0-11.0 [facility] Comment on above: Performed By: #### V ITAD, FETIBC, FERR #### [facility] [address] [place] [address] Dr. Andrey Hargrove IRON AND TIBCon 05-23-2022 % SATURATION 15.9 % Normal [facility] Comment on above: Performed By: #### L IPID, TSH, FT3 #### [facility] [address] [address] [address] Andrey Hargrove Iron [Mass/Vol] 44.0 ug/dL Critically low 50.0-170.0 [facility] Comment on above: Performed By: #### L IPID, TSH, FT3 #### [facility] [address] [address] [address] Andrey Hargrove TIBC DIRECT 276.0 ug/dL Normal 250.0-450.0 [facility] Comment on above: Performed By: #### L IPID, TSH, FT3 #### [facility] [address] [address] [address] Andrey Hargrove LIPID PROFILEon 05-23-2022 CHOL-HDL RATIO NORM SEE BELOW Normal [facility] Comment on above: Result Comment: 3.3 - 4.4 LOW RISK 4.4 - 7.1 AVERAGE RISK 7.1 - 11.0 MODERATE RISK >11.0 HIGH RISK Performed By: #### L IPID, TSH, FT3 #### [facility] [address] [address] [address] Andrey Hargrove Cholesterol [Mass/Vol] 129 mg/dL Normal <=200 [facility] Comment on above: Performed By: #### L IPID, TSH, FT3 #### [facility] [address] [address] [address] Andrey Hargrove Cholesterol in HDL [Mass/Vol] 55 mg/dL Normal 40-60 [facility] Comment on above: Performed By: #### L IPID, TSH, FT3 #### [facility] [address] [address] [address] Andrey Hargrove Cholesterol in LDL [Mass/Vol] 59.6 mg/dL Normal [facility] Comment on above: Performed By: #### L IPID, TSH, FT3 #### [facility] [address] [address] [address] Andrey Hargrove Cholesterol.total/Choles terol in HDL [Mass ratio] 2.3 {ratio} Normal [facility] Comment on above: Performed By: #### L IPID, TSH, FT3 #### [facility] [address] [address] [address] Andrey Hargrove HDL NORMAL > or = 60 mg/dl - LOW CARDIOVASCULAR RISK <40 mg/dl - HIGH CARDIOVASCULAR RISK Normal [facility] Comment on above: Performed By: #### L IPID, TSH, FT3 #### [facility] [address] [address] [address] Andrey Hargrove LDL CALC NORMAL SEE BELOW Normal [facility] Comment on above: Result Comment: <100 mg/dl OPTIMAL 100 - 129 mg/dl NEAR OR ABOVE OPTIMAL 130 - 159 mg/dl BORDERLINE HIGH 160 - 189 mg/dl HIGH >190 mg/dl VERY HIGH Performed By: #### L IPID, TSH, FT3 #### [facility] [address] [place] [address] Dr. Andrey Hargrove Triglyceride [Mass/Vol] 72 mg/dL Normal <=150 [facility] Comment on above: Performed By: #### L IPID, TSH, FT3 #### [facility] [address] [place] [address] Dr. Andrey Hargrove VLDL CALC 14.4 mg/dL Normal [facility] Comment on above: Performed By: #### L IPID, TSH, FT3 #### [facility] [address] [place] [address] Dr. Andrey Hargrove MAGNESIUMon 05-23-2022 Magnesium [Mass/Vol] 2.2 mg/dL Normal 1.8-2.4 [facility] Comment on above: Performed By: #### L IPID, TSH, FT3 #### [facility] [address] [place] [address] Dr. Andrey Hargrove RENAL FUNCTION PANELon 05-23 Albumin [Mass/Vol] 3.5 g/dL Normal 3.4-5.0 [facility] Comment on above: Performed By: #### L IPID, TSH, FT3 #### [facility] [address] [place] [address] Dr. Andrey Hargrove Calcium [Mass/Vol] 10.0 mg/dL Normal 8.5-10.1 [facility] Comment on above: Performed By: #### L IPID, TSH, FT3 #### [facility] [address] [address] [address] Andrey Hargrove Chloride [Moles/Vol] 98 mmol/L Normal 98-107 [facility] Comment on above: Performed By: #### L IPID, TSH, FT3 #### [facility] [address] [place] [address] Dr. Andrey Hargrove CO2 [Moles/Vol] 34.3 mmol/L Critically high 21.0-32.0 [facility] Comment on above: Performed By: #### L IPID, TSH, FT3 #### [facility] [address] [place] [address] Dr. Andrey Hargrove Creatinine [Mass/Vol] 2.24 mg/dL Critically high 0.55-1.02 [facility] Comment on above: Performed By: #### L IPID, TSH, FT3 #### [facility] [address] [place] [address] Dr. Andrey Hargrove EGFR-AF MAURITANIAN 26 mL/min/1.73m2 Critically low >=60 [facility] Comment on above: Performed By: #### L IPID, TSH, FT3 #### [facility] [address] [place] [address] Dr. Andrey Hargrove EGFR-NON AF MAURITANIAN 22 mL/min/1.73m2 Critically low >=60 [facility] Comment on above: Performed By: #### L IPID, TSH, FT3 #### [facility] [address] [place] [address] Dr. Andrey Hargrove Glucose [Mass/Vol] 123 mg/dL Critically high 74-106 [facility] Comment on above: Performed By: #### L IPID, TSH, FT3 #### [facility] [address] [place] [address] Dr. Andrey Hargrove Phosphate [Mass/Vol] 5.2 mg/dL Critically high 2.6-4.7 [facility] Comment on above: Performed By: #### L IPID, TSH, FT3 #### [facility] [address] [place] [address] Dr. Andrey Hargrove Potassium [Moles/Vol] 3.0 mmol/L Critically low 3.5-5.1 [facility] Comment on above: Performed By: #### L IPID, TSH, FT3 #### [facility] [address] [place] [address] Dr. Andrey Hargrove Sodium [Moles/Vol] 137 mmol/L Normal 136-145 [facility] Comment on above: Performed By: #### L IPID, TSH, FT3 #### [facility] [address] [place] [address] Dr. Andrey Hargrove Urea nitrogen [Mass/Vol] 80.0 mg/dL Critically high 7.0-18 .0 [facility] Comment on above: Performed By: #### L IPID, TSH, FT3 #### [facility] [address] [place] [address] Dr. Andrey Hargrove TSHon 05-23-2022 TSH 4.652 uIU/mL Critically high 0.358-3.740 [facility] Comment on above: Performed By: #### L IPID, TSH, FT3 #### [facility] [address] [place] [address] Dr. Andrey Hargrove UA RANDOM W/MICROSCOPICon BACTERIA NONE SEEN Normal NONE SEEN [facility] Comment on above: Performed By: #### V ITAD, FETIBC, FERR #### [facility] [address] [place] [address] Dr. Andrey Hargrove Bilirubin Ql (U) Negative Normal NEGATIVE [facility] Comment on above: Performed By: #### V ITAD, FETIBC, FERR #### [facility] [address] [place] [address] Dr. Andrey Hargrove CAST NONE SEEN Normal NONE SEEN [facility] Comment on above: Performed By: #### V ITAD, FETIBC, FERR #### [facility] [address] [place] [address] Dr. Andrey Hargrove Clarity (U) CLEAR Normal CLEAR [facility] Comment on above: Performed By: #### V ITAD, FETIBC, FERR #### [facility] [address] [address] [address] nAdrey Hargrove Color (U) LT. YELLOW Normal YELLOW [facility] Comment on above: Performed By: #### V ITAD, FETIBC, FERR #### [facility] [address] [address] [address] Andrey Hargrove Crystals LM Nom (Urine sed) NONE SEEN Normal NONE SEEN [facility] Comment on above: Performed By: #### V ITAD, FETIBC, FERR #### [facility] [address] [address] [address] Andrey Hargrove Epithelial cells LM Ql (Urine sed) FEW Abnormal NONE SEEN /RARE [facility] Comment on above: Performed By: #### V ITAD, FETIBC, FERR #### [facility] [address] [address] [address] Andrey Hargrove Glucose Ql (U) Negative Normal NEGATIVE [facility] Comment on above: Performed By: #### V ITAD, FETIBC, FERR #### [facility] [address] [address] [address] Andrey Hargrove Hemoglobin Ql (U) TRACE-INTACT Abnormal NEGATIVE [facility] Comment on above: Performed By: #### V ITAD, FETIBC, FERR #### [facility] [address] [address] [address] Andrey Hargrove Ketones Ql (U) Negative Normal NEGATIVE [facility] Comment on above: Performed By: #### V ITAD, FETIBC, FERR #### [facility] [address] [address] [address] Andrey Hargrove LEUKOCYTES SMALL Abnormal NEGATIVE [facility] Comment on above: Performed By: #### V ITAD, FETIBC, FERR #### [facility] [address] [address] [address] Andrey Hargrove MUCOUS NONE SEEN Normal NONE SEEN [facility] Comment on above: Performed By: #### V ITAD, FETIBC, FERR #### [facility] [address] [address] [address] Andrey Hargrove Nitrite Ql (U) Negative Normal NEGATIVE [facility] Comment on above: Performed By: #### V ITAD, FETIBC, FERR #### [facility] [address] [address] [address] Andrey Hargrove pH (U) 5.5 [pH] Normal 5-9 [facility] Comment on above: Performed By: #### V ITAD, FETIBC, FERR #### [facility] [address] [address] [address] Andrey Hargrove RBC 0-2 Normal 0-2 [facility] Comment on above: Performed By: #### V ITAD, FETIBC, FERR #### [facility] [address] [place] [address] Dr. Andrey Hargrove SPEC GRAVITY 1.010 Normal 1.005-<=1.02 5 [facility] Comment on above: Performed By: #### V ITAD, FETIBC, FERR #### [facility] [address] [address] [address] Andrey Hargrove UA PROTEIN TRACE Normal NEGATIVE/ TRACE [facility] Comment on above: Performed By: #### V ITAD, FETIBC, FERR #### [facility] [address] [address] [address] Andrey Hargrove Urobilinogen Qn (U) 0.2 {Kelly'U}/dL Normal 0.2 - 1. 0 [facility] Comment on above: Performed By: #### V ITAD, FETIBC, FERR #### [facility] [address] [address] [address] Andrey Hargrove WBC 0-2 Abnormal NONE SEEN [facility] Comment on above: Performed By: #### V ITAD, FETIBC, FERR #### [facility] [address] [place] [address] Dr. Andrey Hargrove URIC ACID SERUMon 05-23-2022 Urate [Mass/Vol] 7.4 mg/dL Critically high 2.6-6.0 [facility] Comment on above: Performed By: #### L IPID, TSH, FT3 #### [facility] [address] [place] [address] Dr. Andrey Hargrove URINE T PROTEIN CREAT RATIOo n 05-23-2022 Protein (U) [Mass/Vol] 39.9 mg/dL Critically high <=12.0 [facility] Comment on above: Performed By: #### U RTPCR #### [facility] [address] [place] [address] Dr. Andrey Hargrove UR PROT CREAT RAT 0.64 Normal [facility] Comment on above: Performed By: #### U RTPCR #### [facility] [address] [place] [address] Dr. Andrey Hargrove URINE CREAT 62.30 mg/dL Normal 20.00-300.00 [facility] Comment on above: Performed By: #### U RTPCR #### [facility] [address] [place] [address] Dr. Andrey Hargrove VITAMIN D 25 OHon 05-23-2022 VIT D 25-OH 90.7 ng/mL Normal [facility] Comment on above: Performed By: #### L IPID, TSH, FT3 #### [facility] [address] [place] [address] Dr. Andrey Hargrove VIT D RANGES SEE BELOW Normal [facility] Comment on above: Result Comment: <20 ng/mL Vit D deficient 20 - <30 ng/mL Vit D insufficient 30 - 100 ng/mL Vit D sufficient >100 ng/mL Potential Toxicity Performed By: #### L IPID, TSH, FT3 #### [facility] [address] [place] [address] Dr. Andrey Hargrove MAGNESIUMon 05-14-2022 Magnesium [Mass/Vol] 2.1 mg/dL Normal 1.8-2.4 [facility] Comment on above: Performed By: #### L IPID, TSH, FT3 #### [facility] [address] [place] [address] Dr. Andrey Hargrove PROF CHEM 8 (BAS METB)on Anion gap [Moles/Vol] 12.0 mmol/L Normal Th [facility] Comment on above: Performed By: #### L IPID, TSH, FT3 #### [facility] [address] [address] Dr. Andrey Hargrove Calcium [Mass/Vol] 9.0 mg/dL Normal 8.5-10.1 [facility] Comment on above: Performed By: #### L IPID, TSH, FT3 #### [facility] [address] [address] [address] Andrey Hargrove Chloride [Moles/Vol] 97 mmol/L Critically low 98-107 [facility] Comment on above: Performed By: #### L IPID, TSH, FT3 #### [facility] [address] [place] [address] Dr. Andrey Hargrove CO2 [Moles/Vol] 30.4 mmol/L Normal 21.0-32.0 [facility] Comment on above: Performed By: #### L IPID, TSH, FT3 #### [facility] [address] [place] [address] Dr. Andrey Hargrove Creatinine [Mass/Vol] 2.28 mg/dL Critically high 0.55-1.02 [facility] Comment on above: Performed By: #### L IPID, TSH, FT3 #### [facility] [address] [place] [address] Dr. Andrey Hargrove EGFR-AF MAURITANIAN 26 mL/min/1.73m2 Critically low >=60 [facility] Comment on above: Performed By: #### L IPID, TSH, FT3 #### [facility] [address] [place] [address] Dr. Andrey Hargrove EGFR-NON AF MAURITANIAN 21 mL/min/1.73m2 Critically low >=60 [facility] Comment on above: Performed By: #### L IPID, TSH, FT3 #### [facility] [address] [place] [address] Dr. Andrey Hargrove Glucose [Mass/Vol] 190 mg/dL Critically high 74-106 [facility] Comment on above: Performed By: #### L IPID, TSH, FT3 #### [facility] [address] [address] [address] Andrey Hargrove Potassium [Moles/Vol] 3.4 mmol/L Critically low 3.5-5.1 [facility] Comment on above: Performed By: #### L IPID, TSH, FT3 #### [facility] [address] [address] [address] Andrey Hargrove Sodium [Moles/Vol] 136 mmol/L Normal 136-145 [facility] Comment on above: Performed By: #### L IPID, TSH, FT3 #### [facility] [address] [address] [address] Andrey Hargrove Urea nitrogen [Mass/Vol] 73.0 mg/dL Critically high 7.0-18 .0 [facility] Comment on above: Performed By: #### L IPID, TSH, FT3 #### [facility] [address] [place] [address] Dr. Andrey Hargrove Urea nitrogen/Creatinine [Mass ratio] 32.0 mg/mg Normal [facility] Comment on above: Performed By: #### L IPID, TSH, FT3 #### [facility] [address] [place] [address] Dr. Andrey Hargrove XR CHEST 2 Von [...] by: RENETTA RENEE Date: 2022-05-12 09:12 Normal [facility] BNPon 05-11-2022 Natriuretic peptide B (Bld) [Mass/Vol] 7074.0 pg/mL Critically high <=900.0 [facility] Comment on above: Performed By: #### V ITAD, FETIBC, FERR #### [facility] [address] [place] [address] Dr. Andrey Hargrove CBC AUTO DIFFon 05-11-2022 BASO # 0.1 103/ul Normal 0.0-0.1 [facility] Comment on above: Performed By: #### V ITAD, FETIBC, FERR #### [facility] [address] [place] [address] Dr. Andrey Hargrove Basophils/100 WBC (Bld) 0.7 % Normal 0.2-2.0 [facility] Comment on above: Performed By: #### V ITAD, FETIBC, FERR #### [facility] [address] [place] [address] Dr. Andrey Hargrove EO # 0.3 103/ul Normal 0.0-0.7 [facility] Comment on above: Performed By: #### V ITAD, FETIBC, FERR #### [facility] [address] [place] [address] Dr. Andrey Hargrove Eosinophils/100 WBC (Bld) 3.8 % Normal 0.9-7.0 [facility] Comment on above: Performed By: #### V ITAD, FETIBC, FERR #### [facility] [address] [place] [address] Dr. Andrey Hargrove Erythrocyte distribution width (RBC) [Ratio] 14.7 % Normal 11.0-15.0 [facility] Comment on above: Performed By: #### V ITAD, FETIBC, FERR #### [facility] [address] [place] [address] Dr. Andrey Hargrove Hematocrit (Bld) [Volume fraction] 29.6 % Critically low 36.0-48.0 [facility] Comment on above: Performed By: #### V ITAD, FETIBC, FERR #### [facility] [address] [place] [address] Dr. Andrey Hargrove Hemoglobin (Bld) [Mass/Vol] 9.9 g/dL Critically low 12.0-16.0 [facility] Comment on above: Performed By: #### V ITAD, FETIBC, FERR #### [facility] [address] [place] [address] Dr. Andrey Hargrove IG # 0.03 10e3/ul Normal 0.00-0.03 [facility] Comment on above: Performed By: #### V ITAD, FETIBC, FERR #### [facility] [address] [place] [address] Dr. Andrey Hargrove IG % 0.4 % Normal 0.0-0.5 [facility] Comment on above: Performed By: #### V ITAD, FETIBC, FERR #### [facility] [address] [place] [address] Dr. Andrey Hargrove LYMPH # 1.3 103/ul Normal 1.2-3.8 [facility] Comment on above: Performed By: #### V ITAD, FETIBC, FERR #### [facility] [address] [place] [address] Dr. Andrey Hargrove Lymphocytes/100 WBC (Bld) 16.3 % Critically low 20.5-60.0 [facility] Comment on above: Performed By: #### V ITAD, FETIBC, FERR #### [facility] [address] [place] [address] Dr. Andrey Hargrove MANUAL DIFF REQ NO Normal [facility] Comment on above: Performed By: #### V ITAD, FETIBC, FERR #### [facility] [address] [place] [address] Dr. Andrey Hargrove MCH (RBC) [Entitic mass] 28.7 pg Normal 26.7-34.0 [facility] Comment on above: Performed By: #### V ITAD, FETIBC, FERR #### [facility] [address] [place] [address] Dr. Andrey Hargrove MCHC (RBC) [Mass/Vol] 33.4 g/dL Normal 29.9-35.2 [facility] Comment on above: Performed By: #### V ITAD, FETIBC, FERR #### [facility] [address] [place] [address] Dr. Andrey Hargrove MCV (RBC) [Entitic vol] 85.8 fL Normal 81.0-99.0 [facility] Comment on above: Performed By: #### V ITAD, FETIBC, FERR #### [facility] [address] [place] [address] Dr. Andrey Hargrove MONO # 0.7 103/ul Normal 0.3-0.8 [facility] Comment on above: Performed By: #### V ITAD, FETIBC, FERR #### [facility] [address] [place] [address] Dr. Andrey Hargrove Monocytes/100 WBC (Bld) 8.7 % Normal 1.7-12.0 [facility] Comment on above: Performed By: #### V ITAD, FETIBC, FERR #### [facility] [address] [place] [address] Dr. Andrey Hargrove NEUT # 5.4 103/ul Normal 1.4-6.5 [facility] Comment on above: Performed By: #### V ITAD, FETIBC, FERR #### [facility] [address] [place] [address] Dr. Andrey Hargrove Neutrophils/100 WBC (Bld) 70.1 % Normal 43.0-75.0 [facility] Comment on above: Performed By: #### V ITAD, FETIBC, FERR #### [facility] [address] [place] [address] Dr. Andrey Hargrove Platelet mean volume (Bld) [Entitic vol] 10.9 fL Normal 9.5-13.5 [facility] Comment on above: Performed By: #### V ITAD, FETIBC, FERR #### [facility] [address] [place] [address] Dr. Andrey Hargrove PLT 171 103/ul Normal 150-450 [facility] Comment on above: Performed By: #### V ITAD, FETIBC, FERR #### [facility] [address] [place] [address] Dr. Andrey Hargrove RBC 3.45 106/ul Critically low 4.20-5.40 [facility] Comment on above: Performed By: #### V ITAD, FETIBC, FERR #### [facility] [address] [address] [address] Andrey Hargrove WBC 7.7 103/ul Normal 4.0-11.0 [facility] Comment on above: Performed By: #### V ITAD, FETIBC, FERR #### [facility] [address] [address] [address] Andrey Hargrove PROF CHEM 8 (BAS METB)on Anion gap [Moles/Vol] 9.8 mmol/L Normal [facility] Comment on above: Performed By: #### V ITAD, FETIBC, FERR #### [facility] [address] [address] [address] Andrey Hargrove Calcium [Mass/Vol] 9.1 mg/dL Normal 8.5-10.1 [facility] Comment on above: Performed By: #### V ITAD, FETIBC, FERR #### [facility] [address] [address] [address] Andrey Hargrove Chloride [Moles/Vol] 96 mmol/L Critically low 98-107 [facility] Comment on above: Performed By: #### V ITAD, FETIBC, FERR #### [facility] [address] [address] [address] Andrey Hargrove CO2 [Moles/Vol] 30.8 mmol/L Normal 21.0-32.0 [facility] Comment on above: Performed By: #### V ITAD, FETIBC, FERR #### [facility] [address] [address] [address] Andrey Hargrove Creatinine [Mass/Vol] 2.28 mg/dL Critically high 0.55-1.02 [facility] Comment on above: Performed By: #### V ITAD, FETIBC, FERR #### [facility] [address] [address] [address] Andrey Hargrove EGFR-AF MAURITANIAN 26 mL/min/1.73m2 Critically low >=60 [facility] Comment on above: Performed By: #### V ITAD, FETIBC, FERR #### [facility] [address] [place] [address] Dr. Andrey Hargrove EGFR-NON AF MAURITANIAN 21 mL/min/1.73m2 Critically low >=60 [facility] Comment on above: Performed By: #### V ITAD, FETIBC, FERR #### [facility] [address] [place] [address] Dr. Andrey Hargrove Glucose [Mass/Vol] 158 mg/dL Critically high 74-106 [facility] Comment on above: Performed By: #### V ITAD, FETIBC, FERR #### [facility] [address] [place] [address] Dr. Andrey Hargrove Potassium [Moles/Vol] 3.6 mmol/L Normal 3.5-5.1 [facility] Comment on above: Performed By: #### V ITAD, FETIBC, FERR #### [facility] [address] [place] [address] Dr. Andrey Hargrove Sodium [Moles/Vol] 133 mmol/L Critically low 136-145 [facility] Comment on above: Performed By: #### V ITAD, FETIBC, FERR #### [facility] [address] [place] [address] Dr. Andrey Hargrove Urea nitrogen [Mass/Vol] 66.0 mg/dL Critically high 7.0-18 .0 [facility] Comment on above: Performed By: #### V ITAD, FETIBC, FERR #### [facility] [address] [place] [address] Dr. Andrey Hargrove Urea nitrogen/Creatinine [Mass ratio] 28.9 mg/mg Normal [facility] Comment on above: Performed By: #### V ITAD, FETIBC, FERR #### [facility] [address] [place] [address] Dr. Andrey Hargrove MAGNESIUMon 03-17-2022 Magnesium [Mass/Vol] 1.9 mg/dL Normal 1.8-2.4 [facility] Comment on above: Performed By: #### V ITAD, FETIBC, FERR #### [facility] [address] [address] [address] Andrey Hargrove PROF CHEM 8 (BAS METB)on Anion gap [Moles/Vol] 11.7 mmol/L Normal [facility] Comment on above: Performed By: #### V ITAD, FETIBC, FERR #### [facility] [address] [place] [address] Dr. Andrey Hargrove Calcium [Mass/Vol] 9.4 mg/dL Normal 8.5-10.1 [facility] Comment on above: Performed By: #### V ITAD, FETIBC, FERR #### [facility] [address] [place] [address] Dr. Andrey Hargrove Chloride [Moles/Vol] 97 mmol/L Critically low 98-107 [facility] Comment on above: Performed By: #### V ITAD, FETIBC, FERR #### [facility] [address] [place] [address] Dr. Andrey Hargrove CO2 [Moles/Vol] 29.0 mmol/L Normal 21.0-32.0 [facility] Comment on above: Performed By: #### V ITAD, FETIBC, FERR #### [facility] [address] [place] [address] Dr. Andrey Hargrove Creatinine [Mass/Vol] 2.02 mg/dL Critically high 0.55-1.02 [facility] Comment on above: Performed By: #### V ITAD, FETIBC, FERR #### [facility] [address] [place] [address] Dr. Andrey Hargrove EGFR-AF MAURITANIAN 30 mL/min/1.73m2 Critically low >=60 [facility] Comment on above: Performed By: #### V ITAD, FETIBC, FERR #### [facility] [address] [place] [address] Dr. Andrey Hargrove EGFR-NON AF MAURITANIAN 24 mL/min/1.73m2 Critically low >=60 [facility] Comment on above: Performed By: #### V ITAD, FETIBC, FERR #### [facility] [address] [place] [address] Dr. Andrey Hargrove Glucose [Mass/Vol] 204 mg/dL Critically high 74-106 [facility] Comment on above: Performed By: #### V ITAD, FETIBC, FERR #### [facility] [address] [place] [address] Dr. Andrey Hargrove Potassium [Moles/Vol] 3.7 mmol/L Normal 3.5-5.1 [facility] Comment on above: Performed By: #### V ITAD, FETIBC, FERR #### [facility] [address] [place] [address] Dr. Andrey Hargrove Sodium [Moles/Vol] 134 mmol/L Critically low 136-145 [facility] Comment on above: Performed By: #### V ITAD, FETIBC, FERR #### [facility] [address] [place] [address] Dr. Andrey Hargrove Urea nitrogen [Mass/Vol] 60.0 mg/dL Critically high 7.0-18 .0 [facility] Comment on above: Performed By: #### V ITAD, FETIBC, FERR #### [facility] [address] [place] [address] Dr. Andrey Hargrove Urea nitrogen/Creatinine [Mass ratio] 29.7 mg/mg Normal [facility] Comment on above: Performed By: #### V ITAD, FETIBC, FERR #### [facility] [address] [place] [address] Dr. Andrey Hargrove PTH INTACTon 01-18-2022 PTH, Intact 51 pg/mL Normal 15-65 [facility] Comment on above: Performed By: #### L IPID, TSH, FT3 #### [facility] [address] [place] [address] Dr. Andrey Hargrove FERRITINon 01-17-2022 Ferritin [Mass/Vol] 133.0 ng/mL Normal 8.0-252.0 [facility] Comment on above: Performed By: #### V ITAD, FETIBC, FERR #### [facility] [address] [place] [address] Dr. Andrey Hargrove HEMOGRAM AND PLATELon 2021 Hematocrit (Bld) [Volume fraction] 31.7 % Critically low 36.0-48.0 [facility] Comment on above: Performed By: #### V ITAD, FETIBC, FERR #### [facility] [address] [place] [address] Dr. Andrey Hargrove Hemoglobin (Bld) [Mass/Vol] 10.2 g/dL Critically low 12.0-16.0 [facility] Comment on above: Performed By: #### V ITAD, FETIBC, FERR #### [facility] [address] [place] [address] Dr. Andrey Hargrove MCH (RBC) [Entitic mass] 28.3 pg Normal 26.7-34.0 [facility] Comment on above: Performed By: #### V ITAD, FETIBC, FERR #### [facility] [address] [place] [address] Dr. Andrey Hargrove MCHC (RBC) [Mass/Vol] 32.2 g/dL Normal 29.9-35.2 [facility] Comment on above: Performed By: #### V ITAD, FETIBC, FERR #### [facility] [address] [place] [address] Dr. Andrey Hargrove MCV (RBC) [Entitic vol] 88.1 fL Normal 81.0-99.0 [facility] Comment on above: Performed By: #### V ITAD, FETIBC, FERR #### [facility] [address] [place] [address] Dr. Andrey Hargrove PLT 198 103/ul Normal 150-450 [facility] Comment on above: Performed By: #### V ITAD, FETIBC, FERR #### [facility] [address] [place] [address] Dr. Andrey Hargrove RBC 3.60 106/ul Critically low 4.20-5.40 [facility] Comment on above: Performed By: #### V ITAD, FETIBC, FERR #### [facility] [address] [address] [address] Andrey Hargrove WBC 8.5 103/ul Normal 4.0-11.0 [facility] Comment on above: Performed By: #### V ITAD, FETIBC, FERR #### [facility] [address] [place] [address] Dr. Andrey Hargrove IRON AND TIBCon 01-17-2022 % SATURATION 17.8 % Normal [facility] Comment on above: Performed By: #### V ITAD, FETIBC, FERR #### [facility] [address] [place] [address] Dr. Andrey Hargrove Iron [Mass/Vol] 47.0 ug/dL Critically low 50.0-170.0 [facility] Comment on above: Performed By: #### V ITAD, FETIBC, FERR #### [facility] [address] [place] [address] Dr. Andrey Hargrove TIBC DIRECT 264.0 ug/dL Normal 250.0-450.0 [facility] Comment on above: Performed By: #### V ITAD, FETIBC, FERR #### [facility] [address] [place] [address] Dr. Andrey Hargrove MAGNESIUMon 01-17-2022 Magnesium [Mass/Vol] 2.0 mg/dL Normal 1.8-2.4 [facility] Comment on above: Performed By: #### V ITAD, FETIBC, FERR #### [facility] [address] [address] [address] Andrey Hargrove RENAL FUNCTION PANELon 01-17 Albumin [Mass/Vol] 3.3 g/dL Critically low 3.4-5.0 [facility] Comment on above: Performed By: #### V ITAD, FETIBC, FERR #### [facility] [address] [place] [address] Dr. Andrey Hargrove Calcium [Mass/Vol] 9.1 mg/dL Normal 8.5-10.1 [facility] Comment on above: Performed By: #### V ITAD, FETIBC, FERR #### [facility] [address] [place] [address] Dr. Andrey Hargrove Chloride [Moles/Vol] 104 mmol/L Normal 98-107 [facility] Comment on above: Performed By: #### V ITAD, FETIBC, FERR #### [facility] [address] [place] [address] Dr. Andrey Hargrove CO2 [Moles/Vol] 27.6 mmol/L Normal 21.0-32.0 [facility] Comment on above: Performed By: #### V ITAD, FETIBC, FERR #### [facility] [address] [place] [address] Dr. Andrey Hargrove Creatinine [Mass/Vol] 1.71 mg/dL Critically high 0.55-1.02 [facility] Comment on above: Performed By: #### V ITAD, FETIBC, FERR #### [facility] [address] [place] [address] Dr. Andrey Hargrove EGFR-AF MAURITANIAN 36 mL/min/1.73m2 Critically low >=60 [facility] Comment on above: Performed By: #### V ITAD, FETIBC, FERR #### [facility] [address] [place] [address] Dr. Andrey Hargrove EGFR-NON AF MAURITANIAN 30 mL/min/1.73m2 Critically low >=60 [facility] Comment on above: Performed By: #### V ITAD, FETIBC, FERR #### [facility] [address] [place] [address] Dr. Andrey Hargrove Glucose [Mass/Vol] 115 mg/dL Critically high 74-106 [facility] Comment on above: Performed By: #### V ITAD, FETIBC, FERR #### [facility] [address] [place] [address] Dr. Andrey Hargrove Phosphate [Mass/Vol] 4.3 mg/dL Normal 2.6-4.7 [facility] Comment on above: Performed By: #### V ITAD, FETIBC, FERR #### [facility] [address] [address] [address] Andrey Hargrove Potassium [Moles/Vol] 3.9 mmol/L Normal 3.5-5.1 [facility] Comment on above: Performed By: #### V ITAD, FETIBC, FERR #### [facility] [address] [place] [address] Dr. Andrey Hargrove Sodium [Moles/Vol] 139 mmol/L Normal 136-145 [facility] Comment on above: Performed By: #### V ITAD, FETIBC, FERR #### [facility] [address] [place] [address] Dr. Andrey Hargrove Urea nitrogen [Mass/Vol] 38.0 mg/dL Critically high 7.0-18 .0 [facility] Comment on above: Performed By: #### V ITSHAQ, FETHANNAHC, FERR #### [facility] [address] [place] [address] Dr. Andrey Hargrove UA RANDOM W/MICROSCOPICon BACTERIA NONE SEEN Normal NONE SEEN [facility] Comment on above: Performed By: #### L IPID, TSH, FT3 #### [facility] [address] [place] [address] Dr. Andrey Hargrove Bilirubin Ql (U) Negative Normal NEGATIVE [facility] Comment on above: Performed By: #### L IPID, TSH, FT3 #### [facility] [address] [place] [address] Dr. Andrey Hargrove CAST SEEN Abnormal NONE SEEN [facility] Comment on above: Performed By: #### L IPID, TSH, FT3 #### [facility] [address] [place] [address] Dr. Andrey Hargrove Clarity (U) CLEAR Normal CLEAR [facility] Comment on above: Performed By: #### L IPID, TSH, FT3 #### [facility] [address] [place] [address] Dr. Andrey Hargrove Color (U) LT. YELLOW Normal YELLOW [facility] Comment on above: Performed By: #### L IPID, TSH, FT3 #### [facility] [address] [address] [address] Andrey Hargrove Crystals LM Nom (Urine sed) NONE SEEN Normal NONE SEEN [facility] Comment on above: Performed By: #### L IPID, TSH, FT3 #### [facility] [address] [place] [address] Dr. Andrey Hargrove Epithelial cells LM Ql (Urine sed) FEW Abnormal NONE SEEN /RARE [facility] Comment on above: Performed By: #### L IPID, TSH, FT3 #### [facility] [address] [place] [address] Dr. Andrey Hargrove Glucose Ql (U) Negative Normal NEGATIVE [facility] Comment on above: Performed By: #### L IPID, TSH, FT3 #### [facility] [address] [place] [address] Dr. Andrey Hargrove Hemoglobin Ql (U) Negative Normal NEGATIVE [facility] Comment on above: Performed By: #### L IPID, TSH, FT3 #### [facility] [address] [place] [address] Dr. Andrey Hargrove HYALINE CAST RARE Normal [facility] Comment on above: Performed By: #### L IPID, TSH, FT3 #### [facility] [address] [place] [address] Dr. Andrey Hargrove Ketones Ql (U) Negative Normal NEGATIVE [facility] Comment on above: Performed By: #### L IPID, TSH, FT3 #### [facility] [address] [place] [address] Dr. Andrey Hargrove LEUKOCYTES TRACE Abnormal NEGATIVE [facility] Comment on above: Performed By: #### L IPID, TSH, FT3 #### [facility] [address] [place] [address] Dr. Andrey Hargrove MUCOUS NONE SEEN Normal NONE SEEN [facility] Comment on above: Performed By: #### L IPID, TSH, FT3 #### [facility] [address] [place] [address] Dr. Andrey Hargrove Nitrite Ql (U) Negative Normal NEGATIVE [facility] Comment on above: Performed By: #### L IPID, TSH, FT3 #### [facility] [address] [place] [address] Dr. Andrey Hargrove pH (U) 5.0 [pH] Normal 5-9 [facility] Comment on above: Performed By: #### L IPID, TSH, FT3 #### [facility] [address] [address] [address] Andrey Hargrove RBC 0-2 Normal 0-2 [facility] Comment on above: Performed By: #### L IPID, TSH, FT3 #### [facility] [facility] [address] [address] [address] Andrey Hargrove SPEC GRAVITY 1.020 Normal 1.005-<=1.02 5 [facility] Comment on above: Performed By: #### L IPID, TSH, FT3 #### [facility] [address] [place] [address] Dr. Andrey Hargrove UA PROTEIN Negative Normal NEGATIVE/ TRACE [facility] Comment on above: Performed By: #### L IPID, TSH, FT3 #### [facility] [address] [place] [address] Dr. Andrey Hargrove Urobilinogen Qn (U) 0.2 {Kelly'U}/dL Normal 0.2 - 1. 0 [facility] Comment on above: Performed By: #### L IPID, TSH, FT3 #### [facility] [address] [place] [address] Dr. Andrey Hargrove WBC 2-5 Abnormal NONE SEEN [facility] Comment on above: Performed By: #### L IPID, TSH, FT3 #### [facility] [address] [place] [address] Dr. Andrey Hargrove URIC ACID SERUMon 01-17-2022 Urate [Mass/Vol] 5.4 mg/dL Normal 2.6-6.0 [facility] Comment on above: Performed By: #### V ITAD, FETIBC, FERR #### [facility] [address] [place] [address] Dr. Andrey Hargrove URINE T PROTEIN CREAT RATIOo n 01-17-2022 Protein (U) [Mass/Vol] 15.3 mg/dL Critically high <=12.0 [facility] Comment on above: Performed By: #### V ITAD, FETIBC, FERR #### [facility] [address] [place] [address] Dr. Andrey Hargrove UR PROT CREAT RAT 0.36 Normal [facility] Comment on above: Performed By: #### V ITAD, FETIBC, FERR #### [facility] [address] [place] [address] Dr. Andrey Hargrove URINE CREAT 42.16 mg/dL Normal 20.00-300.00 [facility] Comment on above: Performed By: #### V ITSHAQ, FETIBC, FERR #### [facility] [address] [place] [address] Dr. Andrey Hargrove VITAMIN D 25 OHon 01-17-2022 VIT D 25-OH 73.8 ng/mL Normal [facility] Comment on above: Performed By: #### V ITAD, FETIBC, FERR #### [facility] [address] [place] [address] Dr. Andrey Hargrove VIT D RANGES SEE BELOW Normal [facility] Comment on above: Result Comment: <20 ng/mL Vit D deficient 20 - <30 ng/mL Vit D insufficient 30 - 100 ng/mL Vit D sufficient >100 ng/mL Potential Toxicity Performed By: #### V ITAD, FETIBC, FERR #### [facility] [address] [place] [address] Dr. Andrey Hargrove PROF CHEM 8 (BAS METB)on Anion gap [Moles/Vol] 13.3 mmol/L Normal [facility] Comment on above: Performed By: #### V ITAD, FETIBC, FERR #### [facility] [address] [place] [address] Dr. Andrey Hargrove Calcium [Mass/Vol] 9.5 mg/dL Normal 8.5-10.1 [facility] Comment on above: Performed By: #### V ITAD, FETIBC, FERR #### [facility] [address] [address] [address] Andrey Hargrove Chloride [Moles/Vol] 98 mmol/L Normal 98-107 [facility] Comment on above: Performed By: #### V ITAD, FETIBC, FERR #### [facility] [address] [place] [address] Dr. Andrey Hargrove CO2 [Moles/Vol] 25.7 mmol/L Normal 21.0-32.0 [facility] Comment on above: Performed By: #### V ITAD, FETIBC, FERR #### [facility] [address] [address] [address] Andrey Hargrove Creatinine [Mass/Vol] 2.92 mg/dL Critically high 0.55-1.02 [facility] Comment on above: Performed By: #### V ITAD, FETIBC, FERR #### [facility] [address] [place] [address] Dr. Andrey Hargrove EGFR-AF MAURITANIAN 19 mL/min/1.73m2 Critically low >=60 [facility] Comment on above: Performed By: #### V ITAD, FETIBC, FERR #### [facility] [address] [address] [address] Andrey Hargrove EGFR-NON AF MAURITANIAN 16 mL/min/1.73m2 Critically low >=60 [facility] Comment on above: Performed By: #### V ITAD, FETIBC, FERR #### [facility] [address] [address] [address] Andrey Hargrove Glucose [Mass/Vol] 156 mg/dL Critically high 74-106 [facility] Comment on above: Performed By: #### V ITAD, FETIBC, FERR #### [facility] [address] [address] [address] Andrey Hargrove Potassium [Moles/Vol] 5.0 mmol/L Normal 3.5-5.1 [facility] Comment on above: Performed By: #### V ITAD, FETIBC, FERR #### [facility] [address] [place] [address] Dr. Andrey Hargrove Sodium [Moles/Vol] 132 mmol/L Critically low 136-145 [facility] Comment on above: Performed By: #### V ITAD, FETIBC, FERR #### [facility] [address], [place] [address] Dr. Andrey Hargrove Urea nitrogen [Mass/Vol] 77.0 mg/dL Critically high 7.0-18 .0 [facility] Comment on above: Result Comment: CALL ED TO FRANCIS JUNG RMA Performed By: #### V ITAD, FETIBC, FERR #### [facility] [address], [place] [address] Dr. Andrey Hargrove Urea nitrogen/Creatinine [Mass ratio] 26.4 mg/mg Normal [facility] Comment on above: Performed By: #### V ITAD, FETIBC, FERR #### [facility] [address] [address] [address] Andrey Hargrove Cardiovascular Lab Reporton 12-10-2021 Cardiovascular Lab Report [facility]: [id number] Physician: Karthik Larson Department of [facility] Service Date: 12/09/2021 Division of Birthdate: 1950 Cardiology Room #: Adult Cardiovascular Services [address] [address] Cardiovascular Laboratory Report INDICATION: The patient is [...] signed informed consent. She was brought to labeling associate in a fasting state. The right neck area was prepped and draped in usual fashion. Micropuncture technique and ultrasound guidance were used for access in the right internal jugular vein. A 5-Hong Konger x 11 cm sheath was placed. A 5-Hong Konger Dumont catheter was used for right heart [...] Fish M.D. Date Trans: 12/09/2021 11:37 P/joey [id number] cc: John Perdomo D.O. [address] [place] [address] Normal [facility] CBC COMPLETE BLOOD COUNTon 0 - Erythrocyte distribution width (RBC) [Ratio] 13.6 % Normal 11.5-15.0 [facility] Comment on above: Performed By: #### 5 0608 #### [facility] [address] [place] [address], [facility] Hematocrit (Bld) [Volume fraction] 35.6 % Low 36.0-45.0 [facility] Comment on above: Performed By: #### 5 0608 #### [facility] [address] [place] [address], [facility] Hemoglobin (Bld) [Mass/Vol] 11.8 g/dL Low 12.0-15.0 [facility] Comment on above: Performed By: #### 5 0608 #### [facility] [address] [place] [address], [facility] MCH (RBC) [Entitic mass] 28.6 pg Normal 27.0-33.0 [facility] Comment on above: Performed By: #### 5 0608 #### [facility] [address] MCHC (RBC) [Mass/Vol] 33.1 g/dL Normal 32.0-35.0 [facility] Comment on above: Performed By: #### 5 0608 #### [facility] [address] [place] [address], [facility] MCV (RBC) [Entitic vol] 86.2 fL Normal 82.0-98.0 [facility] Comment on above: Performed By: #### 5 0608 #### [facility] [address] Nucleated RBC/100 WBC (Bld) [Ratio] 0 % Normal 0-0 [facility] Comment on above: Performed By: #### 5 0608 #### [facility] [address] [place] [address], [facility] PLAT CNT 240 10*3/uL Normal 150-400 [facility] Comment on above: Performed By: #### 5 0608 #### [facility] [address] [place] [address], [facility] RBC (Bld) [#/Vol] 4.13 10*6/uL Normal 3.80-5.00 [facility] Comment on above: Performed By: #### 5 0608 #### [facility] [address] [place] [address], [facility] WBC (Bld) [#/Vol] 14.13 10*3/uL High 4.00-10.60 [facility] Comment on above: Performed By: #### 5 0608 #### [facility] [address] [place] [address], [facility] Covid-19 PCR (CVDTB)on SARS-CoV-2 (COVID-19) RNA JAYASHREE+probe Ql (Unsp spec) Not detected Normal NOT DETECTED [facility] Comment on above: Result Comment: This test is not yet approved or cleared by the [place] FDA. When there are no FDA-approved or cleared tests available, and other criteria are met, FDA can make tests available under an emergency access mechanism called an Emergency Use Authorization (EUA). The EUA for this test is supported by the [place] of Health and Human Service's (HHS's) declaration [...] consistent with SARS-CoV-2. Performed By: #### V CAPRICE FETHANNAHC, FERR #### [facility] [address] [place] [address] Dr. Andrey Hargrove ECHOCARDIO M/2D COMPLETEon 0 12-06-2021 ECHOCARDIO M/2D COMPLETE Patient: CLAUDIA ESTRELLA. Exam Date: 12/06/2021 : 1950 Gender:F Ordering : KWAN ROSALES Admission #: [id number] Family : DR ALCALAEL Katelyn PERDOMO D.Dion Order #: [id number] CLICK HERE TO VIEW EXAM ECHOCARDIOGRAM REPORT [...] Area(A4C): 14.80 cm2 Left Atrium Systolic Volume(A2C): 60488 mm3 Left Atrium Systolic Volume(A4C): 73142 mm3 Mitral Valve MV E to A [...] Fish M.D. on 12/06/2021 at 17:31 Normal [facility] BNPon 12-01-2021 Natriuretic peptide B (Bld) [Mass/Vol] 5127.0 pg/mL Critically high <=900.0 [facility] Comment on above: Performed By: #### V ITAD, FETIBC, FERR #### [facility] [address] [place] [address] [address] [address] Andrey Hargrove PROF CHEM 8 (BAS METB)on Anion gap [Moles/Vol] 13.9 mmol/L Normal [facility] Comment on above: Performed By: #### V ITAD, FETIBC, FERR #### [facility] [address] [address] [address] Andrey Hargrove Calcium [Mass/Vol] 9.4 mg/dL Normal 8.5-10.1 [facility] Comment on above: Performed By: #### V ITAD, FETIBC, FERR #### [facility] [address] [address] [address] Andrey Hargrove Chloride [Moles/Vol] 99 mmol/L Normal 98-107 [facility] Comment on above: Performed By: #### V ITAD, FETIBC, FERR #### [facility] [address] [address] [address] Andrey Hargrove CO2 [Moles/Vol] 28.4 mmol/L Normal 21.0-32.0 [facility] Comment on above: Performed By: #### V ITAD, FETIBC, FERR #### [facility] [address] [place] [address] Dr. Andrey Hargrove Creatinine [Mass/Vol] 2.11 mg/dL Critically high 0.55-1.02 [facility] Comment on above: Performed By: #### V ITAD, FETIBC, FERR #### [facility] [address] [address] [address] Andrey Hargrove EGFR-AF MAURITANIAN 28 mL/min/1.73m2 Critically low >=60 [facility] Comment on above: Performed By: #### V ITAD, FETIBC, FERR #### [facility] [address] [address] [address] Andrey Hargrove EGFR-NON AF MAURITANIAN 23 mL/min/1.73m2 Critically low >=60 [facility] Comment on above: Performed By: #### V ITAD, FETIBC, FERR #### [facility] [address] [address] [address] Andrey Hargrove Glucose [Mass/Vol] 179 mg/dL Critically high 74-106 [facility] Comment on above: Performed By: #### V ITAD, FETIBC, FERR #### [facility] [address] [address] [address] Andrey Hargrove Potassium [Moles/Vol] 4.3 mmol/L Normal 3.5-5.1 [facility] Comment on above: Performed By: #### V ITAD, FETIBC, FERR #### [facility] [address] [place] [address] Dr. Andrey Hargrove Sodium [Moles/Vol] 137 mmol/L Normal 136-145 [facility] Comment on above: Performed By: #### V ITAD, FETIBC, FERR #### [facility] [address] [place] [address] Dr. Andrey Hargrove Urea nitrogen [Mass/Vol] 62.0 mg/dL Critically high 7.0-18 .0 [facility] Comment on above: Performed By: #### V ITAD, FETIBC, FERR #### [facility] [address] [place] [address] Dr. Andrey Hargrove Urea nitrogen/Creatinine [Mass ratio] 29.4 mg/mg Normal [facility] Comment on above: Performed By: #### V ITAD, FETIBC, FERR #### [facility] [address] [place] [address] Dr. Andrey Hargrove BNPon 11-19-2021 Natriuretic peptide B (Bld) [Mass/Vol] 4773.0 pg/mL Critically high <=900.0 [facility] Comment on above: Performed By: #### V ITAD, FETIBC, FERR #### [facility] [address] [place] [address] Dr. Andrey Hargrove PROF CHEM 8 (BAS METB)on Anion gap [Moles/Vol] 11.3 mmol/L Normal [facility] Comment on above: Performed By: #### V ITAD, FETIBC, FERR #### [facility] [address] [place] [address] Dr. Andrey Hargrove Calcium [Mass/Vol] 8.9 mg/dL Normal 8.5-10.1 [facility] Comment on above: Performed By: #### V ITAD, FETIBC, FERR #### [facility] [address] [place] [address] Dr. Andrey Hargrove Chloride [Moles/Vol] 100 mmol/L Normal 98-107 [facility] Comment on above: Performed By: #### V ITAD, FETIBC, FERR #### [facility] [address] [address] [address] Andrey Hargrove CO2 [Moles/Vol] 30.9 mmol/L Normal 21.0-32.0 [facility] Comment on above: Performed By: #### V ITAD, FETIBC, FERR #### [facility] [address] [address] [address] Andrey Hargrove Creatinine [Mass/Vol] 2.01 mg/dL Critically high 0.55-1.02 [facility] Comment on above: Performed By: #### V ITAD, FETIBC, FERR #### [facility] [address] [place] [address] Dr. Andrey Hargrove EGFR-AF MAURITANIAN 30 mL/min/1.73m2 Critically low >=60 [facility] Comment on above: Performed By: #### V ITAD, FETIBC, FERR #### [facility] [address] [place] [address] Dr. Andrey Hargrove EGFR-NON AF MAURITANIAN 24 mL/min/1.73m2 Critically low >=60 [facility] Comment on above: Performed By: #### V ITAD, FETIBC, FERR #### [facility] [address] [address] [address] Andrey Hargrove Glucose [Mass/Vol] 81 mg/dL Normal 74-106 [facility] Comment on above: Performed By: #### V ITAD, FETIBC, FERR #### [facility] [address] [address] [address] Andrey Hargrove Potassium [Moles/Vol] 3.2 mmol/L Critically low 3.5-5.1 [facility] Comment on above: Performed By: #### V ITAD, FETIBC, FERR #### [facility] [address] [address] [address] Andrey Hargrove Sodium [Moles/Vol] 139 mmol/L Normal 136-145 [facility] Comment on above: Performed By: #### V ITAD, FETIBC, FERR #### [facility] [address] [address] [address] Andrey Hargrove Urea nitrogen [Mass/Vol] 51.0 mg/dL Critically high 7.0-18 .0 [facility] Comment on above: Performed By: #### V ITAD, FETIBC, FERR #### [facility] [address] [address] [address] Andrey Hargrove Urea nitrogen/Creatinine [Mass ratio] 25.4 mg/mg Normal [facility] Comment on above: Performed By: #### V ITAD, FETIBC, FERR #### [facility] [address] [address] [address] Andrey Hargrove COVID-19 Antigenon 2 COVID-19 [...] its performance Kenny Disclaimer characteristic determined by [employer] and Kenny Disclaimer validated at [facility] [...] is terminated or revoked sooner. PERFORMED BY: [place] [address] PATHOLOGIST ANIMAL GENETICIST JAMAL ALLEN M.D. Normal [facility] Comment on above: Performed By: #### S OFIAPOS, COVID-19 KENNY #### [address] Kenny Ag Positiveon 07-31-19 22 Kenny Ag Positive Positive Critically abnormal Negative [facility] Comment on above: Result Comment: This is a duplicate Kenny SARS Antigen (JOSE RAMON) result to be used for statistical tracking purpose only. PERFORMED BY: [place] [address] PATHOLOGIST ANIMAL GENETICIST JAMAL ALLEN M.D. Performed By: #### S OFIAPOS, COVID-19 KENNY #### [address] Coding Summary.on 12-22-2020 Coding Summary. CD:[id number] Gh0bWw+PGhlYWQ+PE1FV JJrN83ruSUlbC1KB3bLD T1PMQTOBSVMJB6LJA6ab DA7SCnoE4SiueYw HkbniXCsXB29JDd4EZE2 aHsqTSigtK0pzFGzB5s7 KpNwRB65kU70PNyeSEUq EvU7NpBtydhlrYAd W9saZqJeaRYoMke+PHRh YmxlIHdpZHRoPScxMDAl JkBjtVzxSR5wUx5qPODm LWNvbGxhcHNlOiBj t0buTSWoYBqiHS2glNib T2QktWM1GFIug9b1Jv48 dHI+FZUfQQM4dNvcVJef o194EiXta8nbMTP7 hMQlXKdhZSP5K84nb2Q6 REIwPBTeRKV0kAF1gI7r hPgtfsyxE6JwgVDsBxE1 DJG7aHCexL5uiCmh jmzvbZ6bQpz+G99XXV1X CFOLTJ6AGyj5G5SaQfqb dHI+FB31JUCvAR40yGLb gBSpq5tekJf8YxIj BDKgPAF5dBcoKLspv0Hb PRYbR95jiTOta1N8YCHq aDrmmIQzVdJfpXF4xV2p ZXswkszjs7ngtdks Hzzfw1jhqv10wT57L65z HAmyKSHqAQO1URIeTNIj mFfouh0jyO8oNc8+IDxj v8fxy7mzjPi2RrRh QPRlhuVzlWesMIJ3n1To Ns50I3UqaNmqd6KmOfs8 hd10hAZjm1J1lZQ6FJzd YNJeiU0cMMjiInH6 RQRpVxZclD36cSMtOAos Tj8mgFoptPatSB9dMULx vkkbYAPqjD6tKCOwqCEn dIumLI4eSNFsrriz v329DfPmONH0ZKYymPNk J6JgyZ3uHkIjODAoOUEi B9EwnHUdYSgmK398YMbc XrF3DDPawtScS2Bx KADwyAcqZpN4i3Q0Qu5Z p4RnrqhvQNW0KTaxZTF4 GbGfSdByMpR8H8NoSlb3 YMBqqJurPX1jP2Cw VKEnerbshiihcIM3NUGq ZJFwhN86xFGfKEedEh4r c5O8s563AEObYMMrqI81 Gi2yeMyvKQMvaSND pY0vzsgdr8oeimeeQzPj CNReEEb0JRj9FWWhlMab YyUjJPS8BbM2ZOB0sZZm sI6gsCmzgueaeQ7q Oyc+M16haQ5xIRW1ZWS9 xtdsULTsucMmFQ47YZ43 V9IaYafqbSGviCF+PGRp obWrrXqwAN7oYuDa q1qkn8RvWXzgG1UaUUFk IZywUlj9WOCfGMD6aBL6 jE6vEMGdSZnlb6D8sOE9 F2SeelUmms8qv0vg WTEgVJfqD29tlWIcw9E9 AZKsbIL4ZRCmvWszMgGh xO61Tgl+OKHkiTaaz9Zd Vnfjy9qwv4apvNs4 IjMwJSIgdmFsaWduPSJ0 g6PqDt75W62yGJreIYXo JVKbBPPhDNHrrSlgwi3j yU1kKj1+PGNvbCB3 jDJ9fN9yQQKeYmQ4PLrv R539WmDxaUPeIbjdl0eo d4mhkNz5StPyQASwnzBj vOlqBRU2c4XxEd91 R61xLEwuJIOlIYZgFYQg ZZMxzYjngg2msC7iMw3+ KM8ip8rprg56zG84zXL+ MMTlAGY8gAbkOPaz SRVrsN5tOIxfBwH4GTZz TfRxqP45vTUyYKpnBm7n vXjgnMhsIQ3nVMEwmxmh f456EzXxq3rmMSXz yYSxISmtJYQ0K85sv2T0 KLFzUHHfDWF2tQP9tJ7o bGlnbjogbGVmdDsgdmVy tWgyKUabBFlkJ694 IHRvcDsnPlBhdGllbnQg RqXhPEg3O8DeJbu0HAVk kTaeDF6buRIjHYwaDg6r mOwbtNjnJP4uDYUy ipmyi670PyMtg6wnTNFg xQLnVPimAOK4H71wy2G2 DQMsFFUuRDP2hHI6zI6z bGlnbjogbGVmdDsg acRmpIyiMVusNVaxH037 IHRvcDsnPkJpcnRoIERh gIU3HX55EI48kCEvm9Z8 cTW4N9RbQAMdvywf dqmvjNO4WINeIEOrjD99 Xp0aeHpbId6bELBxNCQ5 JVNrfYWoS9FcgY4zKoXx IBNyNIBuS4MsjWNi ZZikA307WOzvVeB0ROOv nwGzJ1IvLIAshNpzUbO0 k9D8Zi0GE9Q9JS53UG24 vWVqj4M1yJE6Z4Pf UAXiawyziwzxqCK8NLPj LPZbvX70Nt6vcDamRk1o YANoHCI1BYBriJPdY2Yz gJ1qJlWdLRWaMQSq N6PuwOVmMEqxO748HTfb FaE9YSEletWpR3CwOYSf dOfvXsY8s6Q1Qf7AEVz9 EI20LC71rUSps2H9 yIH6B7WpSSSuwjsfisro kRI9VZErBTHuaX79Aw6e vLyxVz6aTKSmREB1ETFn pAOsV6CzaW3gHcDt EYWfTXLpU4QshMBkAEaq A520SCodQjJ6LYKnbvNy Z6IgRRLitLabNuD4a7Y6 Ts0LIMMdYH06YUP2 eLZ7ML08VH27D1MgIxzq dGFibGU+PHRhYmxlIHdp ZHRoPScxMDAlJyBzdHls IP8kSe0wDNQhNJTh yIxgxMAyCdXfq1faZCWb SFfoYP4fzPmeF8XurXM9 JNNyl4b6St45T48vF2Xm dXA+RSPljZS7nPL4 nF6dEbNuVuO2IRdoF795 IfTdmMBaEldhu9wkm1fp qHg7PiE3TFDucjKcyRop XQM1p6IdMh20Q18w IHdpZHRoPSIxNSUiIHZh sJbsev7avG4qXw5+PGNv rAX9cYF8dM3wKbKrVuL7 VPkqT542PfLgxAQc Glpqw1cwn7kihBo5YbUy KKBrduPwuCubHWW7p4Fx Hc28G7OtmTrfo4DdYng7 lg65nPQnd8K8bCJ5 C6DhTGSqwmjruMPqvGxd VY3wPAPrtsijMAJfkL6u MCDaB1q6WvVkRcZ5MUbs F7GmzrU0TZSuvXSr NXklIUB1R24pb5M0SQCg WUMbPXK3kOO5cA9bcWxj bjogbGVmdDsgdmVydGlj EBdoAVglB613LDOv wWxrCTUbnY5eWRMjzJVy pFvxNP5qQEQadmujTw7E D1XUYtmtX9tRSh7ZFRU4 I5XzOzo7QGQtjCwn EF0ckFDcWJxhCn0vkBfz iAldJP6tPUKmlxtbXGVw dN1vJVFerAMcjFrnPD4r NMVhxvltl129ZxZg GPT0FUYdtXSyA3YczF1t LlEzLUSdTIOwL0LmbMUt ABlxV764WNmtIhE6ZBBu bePnX8BkDWXwwUdv SrD8m3L3Ie9dYX5mLv8w UVWfKN31QO48bWRsb8D0 aJB1T7BkTVMxvxzlvjdh xFN5UWJdPNCssP54 sYBuSDhaVv6dn7D0h879 BDLmXNCebB62Hm4ygAas PSDcwJEXgO4hzdzcp3qh cjogIzAwMDAwMDt0 ILd5SMMuyShiDfPbJTZ6 PzD5YGN7jCGhoE3mmWwg izcynD9jDxk+NjkgWWVh xiG5F1JtTqo1FQRj fEwwWO0rsXJcSGvoLp9p nUpkzZwfPM3rSWVrmgsa SEEplY7eJUQywIHyyUjc LI2bDAQreiwxn795 NtNrTRJ3XRMjhSNqS3Rn xF5pRfAvRAKgAPGuO6Ld hUWgULbiZ183UCrrUgS7 ZJPxbwZeL7EuCWYy eUyaQdN9h3U4Xv3GEQ1h vCD8F7ZjIbv9ZZQrtGjf YW5znOPuKZuzQv9jlTxx yEumKS5bMCIbpsfp AKXmuS0tSMSxjIDfdZjj NT6fTSIrjzbdv248BrCj XKG8VUOfyZWuG2OspY6d FpCpGRVjVGMvI3En fXQrARylR372COpvHmS7 FDJngjEgS3XyWXSlaOxo JfH0u2E8Co0IRKNfQKYc xTZhUgR4H5EjUjwg dHI+JG05MNSqTW97cLSe kNAwy1zxnIu2IwKdKAJv KYU0tTtrDXozq8LvWZTf Y29kpDBnt3T3UMVu kMkbxPQcSkNgqCN8mZ8j WDscrnujx6okeejlLrkt g3entk90cV82W32yPQrq ZHRoPSIzMCUiIHZh wQdcsw3qbL9uLv6+PGNv vIU3lYA8vN2jReWbCrC2 RDurB565IeYueCLhQuai b3tbz8zusCr6AnFf KSXxquYejOmkIND3d0Zr Xy78P19bMZlaWPAmOCBl EMDdPOZwiHuugg3qfM0r Ii8+ZJ6ag0uexm18 sG57zZB+UJLdKSN3vTko XTduJIVduB8mCFyuMiB3 CIHbHhUomI85fPQiXJeh Ln9auArhtErgAD1o MCZudpiuv298VfMls2da KBTnxJMdKTjlKEY7S40n a8S2PBTgMTZmYYD5qEF9 uZ5viPtwzjwxuLHw dDsgdmVydGljYWwtYWxp K160XYSxyIulDpOaaJLz G3hgkxOSAQ3wJizkvNJ+ PATtXEZ7lPcpUUsg STLeaI4xQADhM2u8IsLn JrG4ZNatO0CdnpT4IBZi rOWpUDSeiNRBiT1qmhrv j3kkatzoLkMhAKUi QVy9WDb5XPXsoPtoGlBq YQH6YgF9BMU9qSAxvR0f iQuviudfrA5oRcb+RklO OjwvdGQ+PHRkIHN0 qFqvESzuUXMxnS3rFDIn X6j0YyVvSiJ6VUlfX2Kv klB7YWYkgHRaGKQerNPK aR4fiiixh8oxobpm JkKsGUJpWFc9PGq9NAUs pWruRxZxSEY3NbB4SWE8 fDVzaE2ygSokydavyJ8y Oyc+TVJOOjwvdGQ+ GNJzMBU1vQccIPzwHUBg dN9pBKDiI1a5ZeTgWtD6 XPzmR1FmolC4TMPxhOIf XZGmsPOSpE1rpxzu f3zqdctfKpVkHYNbGTi0 KUk7GIVldUpsPqUfKQE1 NdL0SGD9fDLlnF6jvRhv gbkikN7cLpp+UGF5 KWQ4WW92JV71Y2AtZvtx dGFibGU+PHRhYmxlIHdp ZHRoPScxMDAlJyBzdHls YV9tGt8nYQBsIPSf bGxh (more content not included)... Normal [facility] Consent for Procedure/Surger yon 12-16-2020 Consent for Procedure/Surgery [id number]#1.00CD:127 Normal [facility] Formson 12-16-2020 Forms [id number]# 1.00CD:127 [facility] Lab Reportson 12-16-2020 Lab Reports [id number]# 1.00CD:127 [facility] Physician Referralon 021 Physician Referral [id number] #1.00CD:127 [facility] RAD - MISCon 12-16-2020 RAD - MISC [id number] 52#1.00CD:127 [facility] RAD - Ultrasound Reporton RAD - Ultrasound Report [id number] #1.00CD:127 Normal [facility] Ambulatory Clinical Summaryo n 12-15-2020 Ambulatory Clinical Summary {[id number] c3-f8-10}CD:[id number] Normal [facility] Patient Educationon 12-16-19 21 Patient Education [...] these instructions at home: Medicines ? Take cjpc-pcy-spdxoba and prescription medicines only as told by [...] the blood stops without treatment. ? Take zyvl-jat-jidkbad and prescription medicines only as told by your health care provider. ? Drink enough fluid to keep your urine clear or pale yellow. This information is not intended to replace advice given to you by your health care provider. Make sure you discuss any questions you have with your health care provider. Document Released: 06/19/2006 Document Revised: 11/13/2019 Document Reviewed: 07/22/2017 [employer] Patient Education ? 2019 [employer]. [facility] Urology Office/Clinic Noteon 12-15-2020 Urology Office/Clinic [...] The Urethra was dilated to: _18- 31 [place] with sounds. Specimens Removed: None Removal: Cystoscope [...] [facility] [address], [place] [address]- [phone] Additional Instructions: f/u PRN Patient Education Hematuria, [...] 50,000 intl units (1.25 mg) oral capsule, 44789 International_Unit= 1 cap(s), Monday Zioptan 0.0015% ophthalmic solution Allergies erythromycin (Anaphylactic reaction) penicillin (Hives) Social History Alco (more content not included)... Normal [facility] Comment on above: Result Comment: Elec tronically Signed By: Marcos KWON MD\.br\Date and Time Signed: 12/15/20 15:58 EDT\.br\Electronically Co-Signed By: Donna Hartley\.br\Date and Time Co-Signed: 12/15/20 15:56 EDT Reminderson 12-14-2020 Reminders - From: Augusta Singh To: EU - Clinical; Sent: 12/11/2020 13:29:41 EDT Show up: 12/14/2020 13:29:00 EDT Subject: Urine culture Reminder/Recall Urine Culture PRW reviewed positive culture. [facility] C Urineon 12-13-2020 Bacteria identified Cx Nom (U) Microbiology PROCEDURE: Urine Culture [R1] SOURCE: U Random BODY SITE: COLLECTED DATE/TIME: 12/11/2020 13:25 EDT RECEIVED DATE/TIME: 12/11/2020 18:10 EDT START DATE/TIME: 12/11/2020 18:10 EDT FREE TEXT SOURCE: CHER VIGIL, Marcos WKON MD, Marcos Abreu FINAL REPORTS Final Report [...] Locations R1: This test was performed at: [facility], [address] [place] [address], [facility]- , , [facility] Comment on above: Performed By: #### 2 [id number] ####[place] [address] Ambulatory Clinical Summaryo n 12-11-2020 Ambulatory Clinical Summary {[id number]-a0-2l-5r-k5-np-d3- 6c-b8-cc}CD:[id number] [facility] Ambulatory Clinical Summary {[id number] q-1v-ml-65-3z-4s-8d- 13-29-0f}CD:[id number] [facility] Ambulatory Clinical Summary {[id number]-0b-4 5-1n-96-64-47-3u-2b- c5-e6-1f}CD:[id number] [facility] Patient Educationon 12-12-19 Patient Education Urology [...] these instructions at home: Medicines ? Take nqkt-rgs-bnlfcct and prescription medicines only as told by [...] the blood stops without treatment. ? Take mjoq-kov-tggfksq and prescription medicines only as told by your health care provider. ? Drink enough fluid to keep your urine clear or pale yellow. This information is not intended to replace advice given to you by your health care provider. Make sure you discuss any questions you have with your health care provider. Document Released: 06/19/2006 Document Revised: 11/13/2019 Document Reviewed: 07/22/2017 [employer] Patient Education ? 2019 [employer] 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 Jenkins due to Hematuria. Pt states that since the End of October she has been feeling a slight squeeze, no pain associated with this. Pt had a Renal US done at [facility]. Pt states that she has a [...] Marcos Abreu, URL [address] [place] [phone] Additional Instructions: Patient Education Hematuria, Adult I, [...] Tab amLOD (more content not included)... Normal [facility] Comment on above: Result Comment: Elec tronically Signed By: Marcos KWON MD\.br\Date and Time Signed: 12/11/20 11:17 EDT\.br\Electronically Co-Signed By: Regla Pyle MA\.br\Date and Time Co-Signed: 12/11/20 11:12 EDT Lab Reportson 11-16-2020 Lab Reports [id number] #1.00CD:127 Normal [facility] Lab Reports [id number] #1.00CD:127 Normal [facility] RAD - Ultrasound Reporton RAD - Ultrasound Report [id number] #1.00CD:127 [facility] IntraOperative Documentson 07-12-2019 IntraOperative Documents [id number] 3#1.00CD:127 [facility] Message from Medicareon Message from Medicare [id number]#1 .00CD:127 Normal [facility] Coding Summary.on 05-06-2020 Coding Summary. CODING DATE: 05/06/2020 FINAL [facility] DSC STATUS: Home (Routine DC) PAYOR: Medicare APC [...] PROC APC STAT DESCRIPTION DOCTOR NAME DATE 15465 1231 J1 Arthroscopy, knee, David Talamantes DO 05/01/2020 surgical; with meniscectomy (medial OR lateral, including any meniscal shaving) including debridement/shaving of articular cartilage (chondroplasty), same or separate compartment(s), when performed LT Left side (used to identify procedures performed on the left side of the body) 66996 Anesthesia for open or Gurmeet Aldridge Jr, [...] Revised Date Saved: 05/06/2020 11:55 am Normal [facility] Insurance Correspondence Off iceon 05-05-2020 Insurance Correspondence Office [id number] 5#1.00CD:127 Normal [facility] Main OR Intraoperative Recor don 05-05-2020 Main OR Intraoperative Record IntraOp Document Type FT Summary Primary Physician: David Talamantes DO Finalized Date/Time: 05/05/20 14:09:46 Pt. Name: CLAUDIA ESTRELLA/Sex: 1950 Female Med Rec #: [id number] Physician: David Talamantes DO Financial #: [id number] Pt. Type: O Room/Bed: [place] [address] Admit/Disch: 05/01/20 11:43:14 - 05/04/20 12:35:00 Institution: [...] Role Performed Anesthesiologist of Surgeon - Primary Title I Assistant - Primary Record Time In 05/01/20 [...] Leatha Flowers RN, CNOR, Cee Role Performed Title I Assistant - Primary Scrub - Primary Title I Assistant - Relief Time In 05/01/20 14:26:00 [...] Out Gurmeet Aldridge Jr, DO, Given Participants [place] FAIR, Edgar Nichols RN, Maxim Reid RN, Matthew Crain CST, [...] and tissue Entry 1 Skin Integrity Intact, Solomon, Warm, and Skin Abnormality No Dry Outcomes Met? Yes Last Modified By: Viky Hernández RN 05/01/20 14:46:48 Post-Care Text: The patient is free from signs and symptoms of injury caused by extraneous objects Patient Positioning FT Pre-Care Text: Identifies physical alterations that require additional precautions for procedure-specific positioning, verifies presence of prosthetics or corrective (more content not included)... Normal [facility] Progress Note-Physicianon Progress Note-Physician Patient: CLAUDIA ESTRELLA Age: 70 years Sex: Female : 1950 Associated Diagnoses: None Author: Aldridge Jr DO, Gurmeet A Preoperative Information Time patient last ate or [...] volume (mL): 1,000, 68.3 kg, 1.64, m2 Cobb 5/325 Tab: 1 tab(s), Tab, Oral, q4hr [...] 04/28/20 18:05:00 EDT Documented Medications Documented Mike ReynoldsPen: 15 unit(s), SubCutaneous, TID, High blood sugar [...] Problems DM kidney disease / SNOMED CT 679240549 / Confirmed PVD (peripheral vascular disease) / SNOMED CT 4744478334 / Confirmed MMT (medial meniscus tear) / SNOMED CT 652085482 / Confirmed Resolved: Ocular herpes zoster / SNOMED CT 646109281 Resolved: HTN (hypertension) / SNOMED CT 8086750237 Canceled: Diabetes / SNOMED CT 495148905 Histories Past Medical History: No active or resolved past medical history items have been selected or recorded. Family History: No family history items have been selected or recorded. Procedure history: Right eye cataract extraction and insertion of intraocular lens (8003472006) on 11/19/2019 at 69 Years. Cataract extraction and insertion of intraocular lens (0908711240) on 11/06/2019 at 69 Years. Comments: 11/06/2019 14:13 EDT - Loreto Peralta RN Left Appendectomy (363923004). section x2 (89940193). Cholecystectomy (63076155). Anesthesia for laparoscopic procedure on lower abdomen (32014328). Cheilectomy of tarsal foot (6475476082). Social History Social & Psychosocial Habits Alcohol [...] results Radiology results ECG interpretation Condition Plan [place] [employer]esthesiologists (ASA) physical status classification: Class III. Anesthetic Preoperative (more content not included)... Normal [facility] Comment on above: Result Comment: Elec [...] Problems DM kidney disease / SNOMED CT 103196311 / Confirmed PVD (peripheral vascular disease) / SNOMED CT 5042389905 / Confirmed MMT (medial meniscus tear) / SNOMED CT 665650178 / Confirmed Resolved: Ocular herpes zoster / SNOMED CT 803568335 Resolved: HTN (hypertension) / SNOMED CT 4683204900 Canceled: Diabetes / SNOMED CT 150120700 Physical Examination Vital Signs 05/01/2020 16:58 EDT [...] F/U Plan Transfer/ Discharge: Condition stable. Normal [facility] Comment on above: Result Comment: Elec tronically Signed By: Gurmeet Aldridge Jr, DO\naye\Date and Time Signed: 05/05/20 08:22 EST Capillary Glucose POCon 11-0 Glucose [Mass/Vol] 149 mg/dL High 55-99 [facility] Comment on above: Result Comment: Monty MEDEIROS Performed By: #### 2 [id number] #### [facility] [address] [place] [address] Glucose [Mass/Vol] 127 mg/dL High 55-99 [facility] Comment on above: Result Comment: Monty MEDEIROS Performed By: #### 2 [id number] #### [facility] [address] [place] [address] Consent for Anesthesiaon Consent for Anesthesia [id number] 110 [id number] #1.00CD:127 Normal [facility] Discharge Instructionson Discharge Instructions [id number] 9#1.00CD:127 Normal [facility] Inpatient Clinical Summaryon 05-04-2020 Inpatient Clinical Summary [place] [id number] Clinical Summary Person Information: Name: CLAUDIA ESTRELLA Age: 70 Years : 1950 Sex: Female PCP: JOHN PERDOMO DO Marital Status: Race: White Ethnicity: Non- or Language: Georgian Visit Id: Visit Reason: LEFT KNEE BONE BRUISE, MEDIAL MENISCUS TEAR, EFFUSION Speciality: Acuity: Enc Type: Observation Med Service: Surgery Arrival: 05/01/2020 11:43:14 Discharge: Dispo Type: Address: [address] [place] [address] Provider Notes: Diagnosis: 1:Other chest pain; 2:Hypertension; [...] up: With: Address: When: 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 with Structural Shop 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 Within 1 week With: Address: When: JOHN PERDOMO [address] [place] [address] Business (1) With: Address: When: David Talamantes [address] [place] [address] Business (1) Comments: Keep scheduled appointment Patient Education Information: Post Op Patient Instructions - FT (Custom); Knee Cryocuff Patient Instructions - FT (Custom); Talamantes - Knee Arthroscopy (Custom) (CUSTOM) Normal [facility] Inpatient Patient Summaryon 05-04-2020 Inpatient Patient Summary [address] [address] Patient Discharge Instructions PERSON INFORMATION Name: CLAUDIA SETRELLA Date of : 1950 Current Date: 05/04/2020 12:16:47 PHYSICIANS Admitting Physician: Nhung BARAHONA MD Primary Care Physician: JOHN PERDOMO DO PCP Comment: Discharge Diagnosis: 1:Other chest pain; 2:Hypertension; 3:Diabetes; 4:Acute medial meniscus tear of left knee; 5:Localized osteoarthritis of left knee; 6:No contraindication to deep vein thrombosis (DVT) prophylaxis Condition at Discharge: Improved SAMEERCLAUDIA MAST has been given the following list of [...] up: With: Address: When: 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 Normal [facility] Interdisciplinary Note - PTo n 05-04-2020 Interdisciplinary Note - PT PT Screen performed. Pt was able to stand and ambulate throughout room without difficulty and without an AD. Pt also demos appropriate ROM to knee. Would recommend to f/u with Ortho to determine if therapy is needed in the future, but no PT needed at this time [facility] IntraOperative Documentson 1 07-04-2019 IntraOperative Documents [id number] #1.00CD:127 [facility] IntraOperative Documents [id number] #1.00CD:127 [facility] Message from Medicareon Message from Medicare [id number] 11 [id number] 5#1.00CD:127 [facility] Monitor Recordon 05-04-2020 Monitor Record [id number] 6#1.00CD:127 [facility] Monitor Record [id number] 5#1.00CD:127 [facility] Monitor Record [id number] 7#1.00CD:127 [facility] Patient Education - Texton 1 07-04-2019 Patient Education - Text (Inserted Image . Unable to display) [place], [place] [facility] DISCHARGE INSTRUCTIONS: KNEE ARTHROSCOPY [...] your appointment. David Talamantes, DO [facility] [address] [place] [address] Reviewed: 10-08 [facility] Preoperative Documentson Preoperative Documents [id number] #1.00CD:127 Normal [facility] Preoperative Documents [id number] 110 [id number] #1.00CD:127 Normal [facility] Prescriptions/Work Noteson 07-04-2019 Prescriptions/Work Notes [id number] #1.00CD:127 Normal [facility] Capillary Glucose POCon Glucose [Mass/Vol] 183 mg/dL High 55-99 [facility] Comment on above: Performed By: #### 2 [id number] #### [facility] [address] [place] [address] Glucose [Mass/Vol] 155 mg/dL High 55-99 [facility] Comment on above: Performed By: #### 2 [id number] #### [facility] [address] [place] [address] Glucose [Mass/Vol] 113 mg/dL High 55-99 [facility] Comment on above: Result Comment: Monty MEDEIROS Performed By: #### 2 [id number] ####[facility] [address] [place] [address] Glucose [Mass/Vol] 112 mg/dL High 55-99 [facility] Comment on above: Performed By: #### 2 [id number] #### [facility] [address] [place] [address] Glucose [Mass/Vol] 85 mg/dL Normal 55-99 [facility] Comment on above: Result Comment: Monty MEDEIROS Performed By: #### 2 [id number] #### [facility] [address] [place] [address] Glucose [Mass/Vol] 59 mg/dL Normal 55-99 [facility] Comment on above: Result Comment: Monty MEDEIROS Performed By: #### 2 [id number] #### [facility] [address] [place] [address] Consultation Noteon 05-03-20 Consultation Note HOSPITAL REGULATIONS: [...] left knee and elevate. Eh Carter DO [facility] Dictated: 05/02/2020 #[id number] Typed: 05/02/2020 #[id number] cc: DO David Nieto D.O. [facility] Comment on above: Result Comment: Elec tronically Signed By: Eh Carter DO.br\Date and Time Signed: 05/03/20 10:27 EST Monitor Recordon 05-03-2020 Monitor Record [id number] 1#1.00CD:127 Normal [facility] Monitor Record [id number] 6#1.00CD:127 Normal [facility] Operative Reporton 0 Operative Report Date [...] The patient's condition satisfactory David Talamantes D.O. [facility] Dictated: 05/01/2020 #[id number] Typed: 05/01/2020 #[id number] cc: Randa Lanier D.O. 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 Continue [...] PRN L (more content not included)... Normal [facility] Comment on above: Result Comment: Elec tronically Signed By: Eleuterio VIGIL, John Olson\.br\Date and Time Signed: 11/01/20 07:45 EST Capillary Glucose POCon 10-3 1-2020 Glucose [Mass/Vol] 212 mg/dL High 55-99 [facility] Comment on above: Performed By: #### 2 [id number] #### [facility] [address] [place] [address] Glucose [Mass/Vol] 138 mg/dL High 55-99 [facility] Comment on above: Performed By: #### 2 [id number] #### [facility] [address] [place] [address] Glucose [Mass/Vol] 139 mg/dL High 55- [facility] Comment on above: Performed By: #### 2 [id number] #### [facility] [address] [place] [address] Glucose [Mass/Vol] 105 mg/dL High 55- [facility] Comment on above: Performed By: #### 2 [id number] #### [facility] [address] [place] [address] Glucose [Mass/Vol] 233 mg/dL High 55- [facility] Comment on above: Result Comment: Monty pelayo RN/ Performed By: #### 2 [id number] ####[facility] [address] [place] [address] Lipid Panelon 05-02-2020 Cholesterol [Mass/Vol] 160 mg/dL Normal 120-200 [facility] Comment on above: Performed By: #### 2 [id number] #### [facility] [address] [place] [address] Cholesterol in HDL [Mass/Vol] 49 mg/dL Invalid Interpretation Code [facility] Comment on above: Result Comment: HDL > or equal to 60 mg/dL: Low cardiovascular risk HDL < 40 mg/dL : High cardiovascular risk Performed By: #### 2 [id number] #### [facility] [address] [place] [address] Cholesterol in LDL [Mass/Vol] 98 mg/dL Normal <=129 [facility] Comment on above: Performed By: #### 2 [id number] #### [facility] [address] [place] [address] Cholesterol in VLDL [Mass/Vol] 12 mg/dL Normal 7-40 [facility] Comment on above: Performed By: #### 2 [id number] #### [facility] [address] [place] [address] Triglyceride [Mass/Vol] 61 mg/dL Normal <=149 F [facility] Comment on above: Performed By: #### 2 [id number] #### [facility] [address] [place] [address] Monitor Recordon 05-02-2020 Monitor Record [id number] 2#1.00CD:127 Normal [facility] Progress Note-Physicianon Progress Note-Physician Assessment/Plan 1. [...] (05/01/20 18:27:00) (more content not included)... Normal [facility] Comment on above: Result Comment: Elec tronically Signed By: JUN VIGIL, Nhung\.br\Date and Time Signed: 05/02/20 10:00 EDT Troponin 3 Hr.on 05-02-2020 Troponin I.cardiac [Mass/Vol] 3.60 pg/mL Low 10.10-27.10 [facility] Comment on above: Result Comment: The 95% CI (Confidence Interval) PPV (Positive Predictive Value) for myocardial infarction in females is 38 pg/mL, in males 51 pg/mL. The results should be used in conjunction with clinical conditions of myocardial infarction. (Access High Sensitivity Troponin I Instructions For Use, [employer], January 2018) Performed By: #### 2 [id number] #### [facility] [address] [place] [address] Troponin 6 Hr.on 05-02-2020 Troponin I.cardiac [Mass/Vol] 3.90 pg/mL Low 10.10-27.10 [facility] Comment on above: Result Comment: The 95% CI (Confidence Interval) PPV (Positive Predictive Value) for myocardial infarction in females is 38 pg/mL, in males 51 pg/mL. The results should be used in conjunction with clinical conditions of myocardial infarction. (Access High Sensitivity Troponin I Instructions For Use, [employer], January 2018) Performed By: #### 2 [id number] #### [facility] [address] [place] [address] Troponin 9 Hr.on 05-02-2020 Troponin I.cardiac [Mass/Vol] 5.10 pg/mL Low 10.10-27.10 [facility] Comment on above: Result Comment: The 95% CI (Confidence Interval) PPV (Positive Predictive Value) for myocardial infarction in females is 38 pg/mL, in males 51 pg/mL. The results should be used in conjunction with clinical conditions of myocardial infarction. (Access High Sensitivity Troponin I Instructions For Use, [employer] [place], January 2018) Performed By: #### 2 [id number] #### [facility] [address] [place] [address] US Carotid Duplex Bilateralo n 05-02-2020 US [...] ECA (cm/sec): 199/15 Vert. Antegrade Yes Normal [facility] Auto Diffon 05-01-2020 Basophils/100 WBC (Bld) 0.4 % Normal 0.0-2.0 [facility] Comment on above: Order Comment: Order Added by Discern Expert. Performed By: #### 2 018001, [id number], [id number], [id number] #### [facility] [address] [place] [address] Basophils/Leukocytes Auto (Bld) [Pure # fraction] 0.0 E9/L Normal 0.0-0.2 [facility] Comment on above: Order Comment: Order Added by Discern Expert. Performed By: #### 2 837046, [id number], [id number], [id number] #### [facility] [address] [place] [address] Eosinophils/100 WBC (Bld) 1.2 % Normal 0.0-8.0 [facility] Comment on above: Order Comment: Order Added by Discern Expert. Performed By: #### 2 228904, [id number], 0794885, [id number] #### [facility] [address] [place] [address] Eosinophils/Leukocytes Auto (Bld) [Pure # fraction] 0.1 E9/L Normal 0.0-0.5 [facility] Comment on above: Order Comment: Order Added by Discern Expert. Performed By: #### 2 300741, [id number], 3239413, [id number] #### [facility] [address] [place] [address] Lymphocytes/100 WBC (Bld) 9.7 % Low 14.0-50.0 [facility] Comment on above: Order Comment: Order Added by Discern Expert. Performed By: #### 2 246564, [id number], 3633864, 7153672 #### [facility] [address] [place] [address] Lymphocytes/Leukocytes Auto (Bld) [Pure # fraction] 1.0 E9/L Normal 1.0-4.0 [facility] Comment on above: Order Comment: Order Added by Discern Expert. Performed By: #### 2 143117, [id number], 9659631, [id number] #### [facility] [address] [place] [address] Monocytes/100 WBC (Bld) 4.2 % Normal 4.0-14.0 [facility] Comment on above: Order Comment: Order Added by Discern Expert. Performed By: #### 2 045309, [id number], 3487468, 5073101 #### [facility] [address] [place] [address] Monocytes/Leukocytes Auto (Bld) [Pure # fraction] 0.4 E9/L Normal 0.2-1.0 [facility] Comment on above: Order Comment: Order Added by Discern Expert. Performed By: #### 2 143333, [id number], 8237074, 9886575 #### [facility] [address] [place] [address] Neutrophils/100 WBC (Bld) 84.5 % High 36.0-75.0 [facility] Comment on above: Order Comment: Order Added by Discern Expert. Performed By: #### 2 914701, [id number], 0685734, 9009544 #### [facility] [address] [place] [address] Neutrophils/Leukocytes Auto (Bld) [Pure # fraction] 8.9 E9/L High 2.0-7.5 [facility] Comment on above: Order Comment: Order Added by Discern Expert. Performed By: #### 2 401113, [id number], 0149173, 9326581 #### [facility] [address] [place] [address] BMPon 05-01-2020 Calcium [Mass/Vol] 8.9 mg/dL Normal 8.9-11.1 [facility] Comment on above: Performed By: #### 2 283328, [id number], 2843276, 0666580 #### [facility] [address] [place] [address] Anion gap [Moles/Vol] 10 mmol/L Normal 6-16 [facility] Comment on above: Performed By: #### 2 557510, [id number], 4285535, [id number] #### [facility] [address] [place] [address] Chloride [Moles/Vol] 103 mmol/L Normal 101-111 [facility] Comment on above: Performed By: #### 2 448652, 29933528, 9691672, 8627385 #### [facility] [address] [place] [address] CO2 [Moles/Vol] 24 mmol/L Normal 21-31 [facility] Comment on above: Performed By: #### 2 099608, 63037249, 6046853, 1206887 #### [facility] [address] [place] [address] Creatinine [Mass/Vol] 1.6 mg/dL High 0.5-1.3 [facility] Comment on above: Performed By: #### 2 977067, 52525881, 0274109, 7653076 #### [facility] [address] [place] [address] Glucose [Mass/Vol] 167 mg/dL Normal 55-199 [facility] Comment on above: Result Comment: If t his glucose result represents a fasting glucose, interpretation should refer to the following reference range: 55-99 mg/dL Performed By: #### 2 160142, 63399502, 7231902, 6864556 #### [facility] [address] [place] [address] Potassium [Moles/Vol] 3.9 mmol/L Normal 3.5-5.3 [facility] Comment on above: Performed By: #### 2 141165, 58533020, 0146296, 0751754 #### [facility] [address] [place] [address] Sodium [Moles/Vol] 133 mmol/L Low 135-145 [facility] Comment on above: Performed By: #### 2 597213, 84738277, 1547838, 4540650 #### [facility] [address] [place] [address] Urea nitrogen [Mass/Vol] 34 mg/dL High 5-21 [facility] Comment on above: Performed By: #### 2 961182, 68203706, 8562765, 6424367 #### [facility] [address] [place] [address] Urea nitrogen/Creatinine [Mass ratio] 21 No Units High 10-20 [facility] Comment on above: Performed By: #### 2 244514, 54748579, 1529777, 9888054 #### [facility] [address] [place] [address] CBC w/ Auto Diffon 10-30-202 0 Erythrocyte distribution width (RBC) [Ratio] 13.0 % Normal 10.9-14.2 [facility] Comment on above: Performed By: #### 2 983962, 59892720, 9353119, 8270174 #### [facility] [address] [place] [address] Hematocrit (Bld) [Volume fraction] 32.4 % Low 34.0-46.0 [facility] Comment on above: Performed By: #### 2 345699, 99629234, 3200029, 1372732 #### [facility] [address] [place] [address] Hemoglobin (Bld) [Mass/Vol] 11.2 g/dL Low 12.0-16.0 [facility] Comment on above: Performed By: #### 2 187193, 31705908, 5420206, 0579325 #### [facility] [address] [place] [address] MCH (RBC) [Entitic mass] 29.6 pg Normal 27.0-34.0 [facility] Comment on above: Performed By: #### 2 722354, 14783577, 8377946, 9893069 #### [facility] [address] [place] [address] MCHC (RBC) [Mass/Vol] 34.6 g/dL Normal 31.4-36.0 [facility] Comment on above: Performed By: #### 2 934267, 49547439, 6898094, 2991964 #### [facility] [address] [place] [address] MCV (RBC) [Entitic vol] 85.5 fL Normal 80.0-100.0 [facility] Comment on above: Performed By: #### 2 608685, 43971615, 3127551, 3189200 #### [facility] [address] [place] [address] Platelet mean volume (Bld) [Entitic vol] 8.4 fL Normal 6.4-10.8 [facility] Comment on above: Performed By: #### 2 331070, 21188811, 2953824, 0318781 #### [facility] [address] [place] [address] Platelets (Bld) [#/Vol] 242.0 E9/L Normal 150.0-500.0 [facility] Comment on above: Performed By: #### 2 531229, 06568570, 6245997, 2162681 #### [facility] [address] [place] [address] RBC (Bld) [#/Vol] 3.8 E12/L Low 4.3-5.9 [facility] Comment on above: Performed By: #### 2 507210, 91307040, 6234011, 5457490 #### [facility] [address] [place] [address] WBC corrected for nucl RBC Auto (Bld) [#/Vol] 10.5 E9/L Normal 4.0-11.0 [facility] Comment on above: Performed By: #### 2 432738, 27312928, 7950716, 7602249 #### [facility] [address] [place] [address] Capillary Glucose POCon 04-04 Glucose [Mass/Vol] 84 mg/dL Normal 55-99 [facility] Comment on above: Result Comment: Repe at Test Performed By: #### 2 [id number] #### [facility] [address] [place] [address] Glucose [Mass/Vol] 88 mg/dL Normal 55-99 [facility] Comment on above: Result Comment: Repe at Test Performed By: #### 2 [id number] #### [facility] [address] [place] [address] Coding Summary.on 05-01-2020 Coding Summary. CODING DATE: 05/01/2020 FINAL [facility] STATUS: Home (Routine DC) PAYOR: Medicare APC [...] CphT Date Saved: 05/01/2020 08:36 am Normal [facility] Coding Summary. CODING DATE: 04/25/2020 FINAL [facility] STATUS: Home (Routine DC) PAYOR: Medicare APC [...] Date Saved: 04/25/2020 04:17 pm [facility] Consent for Treatmenton 04-04 Consent for Treatment [id number] #1.00CD:127 [facility] Consent for Treatment [id number] #1.00CD:127 [facility] H&P Updateon 05-01-2020 H&P Update [id number] #1.00CD:127 [facility] Main OR PACU I Recordon 04-04 Main OR PACU I Record PACU Phase I Document Type FT Summary Primary Physician: David Talamantes DO Finalized Date/Time: 05/01/20 18:04:55 Pt. Name: CLAUDIA ESTRELLA/Sex: 1950 Female Med Rec #: [id number] Physician: David Talamnates DO Financial #: [id number] Pt. Type: A Room/Bed: AS Admit/Disch: 05/01/20 11:43:14 - Institution: Case Times [...] Signed By: Ju Bates RN 05/01/20 18:04 [facility] Main OR PACU II Recordon Main OR PACU II Record PACU Phase II Document Type FT Summary Primary Physician: David Talamantes DO Finalized Date/Time: 05/01/20 20:09:08 Pt. Name: CLAUDIA ESTRELLA James/Sex: 1950 Female Med Rec #: [id number] Physician: David Talamantes DO Financial #: [id number] Pt. Type: O Room/Bed: [place] [address] Admit/Disch: 05/01/20 11:43:14 - Institution: Case Times [...] By: Yessy Curran RN 05/01/20 20:09 Normal [facility] Main OR Preoperative Recordo n 05-01-2020 Main OR Preoperative Record PreOp Document Type FT Summary Primary Physician: David Talamantes DO Finalized Date/Time: 05/01/20 14:45:06 Pt. Name: CLAUDIA ESTRELLA Katerin Ramirez/Sex: 1950 Female Med Rec #: [id number] Physician: David Talamantes DO Financial #: [id number] Pt. Type: A Room/Bed: [place] [address] Admit/Disch: 05/01/20 11:43:14 - Institution: Case Times [...] By: Viky Hernández RN 05/01/20 14:45 Normal [facility] Monitor Recordon 05-01-2020 Monitor Record [id number] 0#1.00CD:127 Normal [facility] Monitor Record [id number] 8#1.00CD:127 Normal [facility] Outside Radiologyon 05-01-20 20 Outside Radiology [id number] #1.00CD:127 Normal [facility] Outside Recordson 05-01-2020 Outside Records [id number] #1.00CD:127 Normal [facility] Progress Note-Nurseon 2019 Progress Note-Nurse At 1653--Tersea poct stated she needed a nurse in [...] ml of bile. 1748--Report called to Ross RN. Nurse updated on discharge instructions with patient's [...] voicemail. 1834--This nurse spoke with Dr. Carter (application assistant physician), informed Dr. Carter reason for admission and patient's room number. Dr. Aldridge at bedside at 170--Physician looked at patient EKG strip that was printed. Normal [facility] Progress Note-Nurse 1528: pt. medicated with [...] dtr. also at bedside and updated. Normal [facility] Troponin 0 Hr.on 05-01-2020 Troponin I.cardiac [Mass/Vol] 4.10 pg/mL Low 10.10-27.10 [facility] Comment on above: Result Comment: The 95% CI (Confidence Interval) PPV (Positive Predictive Value) for myocardial infarction in females is 38 pg/mL, in males 51 pg/mL. The results should be used in conjunction with clinical conditions of myocardial infarction. (Access High Sensitivity Troponin I Instructions For Use, [employer], January 2018) Performed By: #### 2 [id number] #### [facility] [address] [place] [address] eGFRon 05-01-2020 GFR/1.73 sq M.predicted among blacks MDRD (S/P/Bld) [Vol rate/Area] 39 mL/min/1.73 m2 Low >=59 [facility] Comment on above: Order Comment: Order added by Discern Expert. Result Comment: eGFR is race adjusted. AA=. Performed By: #### 2 184210, 76312984, 9431751, 7401319 #### [facility] [address] [place] [address] GFR/1.73 sq M.predicted among non-blacks MDRD (S/P/Bld) [Vol rate/Area] 32 mL/min/1.73 m2 Low >=59 [facility] Comment on above: Order Comment: Order added by Discern Expert. Result Comment: [employer] jayden kidney disease could be indicated at eGFR's of less than 60 mL/min/1.73m2. Kidney failure is indicated at less than 15 mL/min/1.73m2. Performed By: #### 2 718189, 01029507, 9770936, 6857255 #### [facility] [address] [place] [address] Coding Summary.on 04-28-2020 Coding Summary. CODING DATE: 04/28/2020 FINAL [facility] STATUS: Home (Routine DC) PAYOR: Medicare ADMIT [...] CphT Date Saved: 04/28/2020 09:19 am Normal [facility] Outpatient Surgery Discharge Instructionon 04-28-2020 Outpatient Surgery Discharge Instruction [address] [address] Patient Discharge Instructions PERSON INFORMATION Name: CLAUDIA [...] THE NEAREST EMERGENCY ROOM OR CALL 911 SAMEER Burnett SHARON E, have received the attached patient education materials/instructio ns and have verbalized understanding: May we do a follow up call? Yes No I was present when discharge instructions were given Patient Signature Date Clinican/Nurse Signature Date Follow up: With: Address: When: David Talamantes [address] [place], [place] [id number] Business () Comments: Keep scheduled appointment Type Location Start [facility] Surgery [facility] Surgical Services 05/01/2020 2:15 PM 05/01/2020 2:55 PM Confirmed Pharmacy Information: Thank you for choosing [facility] HERE ARE THE MEDICATION CHANGES THAT [...] tab Oral Daily. PATIENT EDUCATION INFORMATION Instructions: [place], [place] [facility] DISCHARGE INSTRUCTIONS: KNEE ARTHROSCOPY [...] result of (more content not included)... Normal [facility] Consent for Procedure/Surger yon 04-27-2020 Consent for Procedure/Surgery [id number] 5#1.00CD:127 Normal [facility] Outside Recordson 04-27-2020 Outside Records [id number] 9#1.00CD:127 Normal [facility] Priority Order-Trina 2019 Priority Order-STAT Comment Invalid Interpretation Code [facility] Comment on above: Result Comment: Rece ived Performed at: [facility] [address] [facility] [place] [id number] MD Bladimir Briones Performed By: #### 2 [id number] #### [facility] [address] [place] [address] SARS-CoV-2, NAAon 04-25-2020 SARS-CoV-2 (COVID-19) RNA JAYASHREE+probe Ql (Resp) Not detected Invalid Interpretation Code Not Detected [facility] Comment on above: Result Comment: This nucleic acid amplification test was developed and its performance characteristics determined by [employer]. Nucleic acid amplification tests include PCR and [...] detected) result in this assay. Performed at: [facility] [address] [facility] [place] [id number] MD Bladimir Briones Performed By: #### 2 [id number] #### [facility] [address] [place] [address] XR Chest 2 Viewson 0 XR Chest [...] M.D. Transcribed by: LUDIN Technologist: RRB Normal [facility] BUNon 04-24-2020 Urea nitrogen [Mass/Vol] 36 mg/dL High 5-21 [facility] Comment on above: Performed By: #### 1 8517246, 6354068, 7190094, 8635555, 5641288, 0458365 ####[facility] [address] [place] [address] CBC w/Indiceson 04-24-2020 Erythrocyte distribution width (RBC) [Ratio] 13.0 % Normal 10.9-14.2 [facility] Comment on above: Performed By: #### 1 3037299, 2159894, 3838103, 4420386, 1358829, 4906012 ####[address] [place] [address] Hematocrit (Bld) [Volume fraction] 34.1 % Normal 34.0-46.0 [facility] Comment on above: Performed By: #### 1 1545729, 9313774, 4297854, 1632090, 8408647, 0000137 ####[address] [address] Hemoglobin (Bld) [Mass/Vol] 11.6 g/dL Low 12.0-16.0 [facility] Comment on above: Performed By: #### 1 3108283, 2866157, 7171559, 2128241, 7557262, 7809998 ####[address] [address] MCH (RBC) [Entitic mass] 29.5 pg Normal 27.0-34.0 [facility] Comment on above: Performed By: #### 1 2259984, 4223914, 5028038, 1414367, 0343725, 2590869 ####[address] [address] MCHC (RBC) [Mass/Vol] 34.1 g/dL Normal 31.4-36.0 [facility] Comment on above: Performed By: #### 1 1673834, 9578073, 8000597, 1813994, 6781343, 0260742 ####[address] [address] MCV (RBC) [Entitic vol] 86.5 fL Normal 80.0-100.0 [facility] Comment on above: Performed By: #### 1 8333099, 3011443, 4330752, 9967788, 2129810, 1572088 ####[address] [address] Platelet mean volume (Bld) [Entitic vol] 9.4 fL Normal 6.4-10.8 [facility] Comment on above: Performed By: #### 1 0767824, 2286675, 0790434, 5734454, 0493007, 2896218 ####[facility] [address] [place] [address] Platelets (Bld) [#/Vol] 246.0 E9/L Normal 150.0-500.0 [facility] Comment on above: Performed By: #### 1 2934986, 1489248, 0035593, 9989910, 3527676, 7705374 ####[facility] [address] [place] [address] RBC (Bld) [#/Vol] 3.9 E12/L Low 4.3-5.9 [facility] Comment on above: Performed By: #### 1 4039522, 6969788, 7063232, 2548983, 9417475, 3925129 ####[address] [place] [address] WBC corrected for nucl RBC Auto (Bld) [#/Vol] 10.0 E9/L Normal 4.0-11.0 [facility] Comment on above: Performed By: #### 1 5635131, 1203303, 7829587, 3604032, 4033300, 6639404 ####[address] [place] [address] Consent for Treatmenton 04-03 Consent for Treatment [id number] #1.00CD:127 Normal [facility] Creatinineon 04-24-2020 Creatinine [Mass/Vol] 1.6 mg/dL High 0.5-1.3 [facility] Comment on above: Performed By: #### 1 9372469, 2095679, 0496853, 7473844, 2959059, 0564707 ####[facility] [address] [place] [address] Glu Fastingon 04-24-2020 Glucose [Mass/Vol] 81 mg/dL Normal 55-99 [facility] Comment on above: Performed By: #### 1 9620514, 1442872, 1831501, 5549954, 2961575, 3190084 ####[facility] [address] [place] [address] Lyteson 04-24-2020 Anion gap [Moles/Vol] 13 mmol/L Normal 6-16 [facility] Comment on above: Performed By: #### 1 4362728, 5388656, 9916881, 9119349, 6923429, 4320794 ####[facility] [address] [place] [address] Chloride [Moles/Vol] 103 mmol/L Normal 101-111 [facility] Comment on above: Performed By: #### 1 5567947, 0999946, 8869619, 6157635, 8490825, 6862152 ####[facility] [address] [place] [address] CO2 [Moles/Vol] 26 mmol/L Normal 21-31 [facility] Comment on above: Performed By: #### 1 2945508, 9706707, 7283795, 8667636, 0808066, 9517617 ####[facility] [address] [place] [address] Potassium [Moles/Vol] 3.9 mmol/L Normal 3.5-5.3 [facility] Comment on above: Performed By: #### 1 1084063, 4506924, 0260666, 6557150, 3020197, 7284882 ####[facility] [address] [place] [address] Sodium [Moles/Vol] 138 mmol/L Normal 135-145 [facility] Comment on above: Performed By: #### 1 0473464, 3598268, 2103761, 1737937, 9574890, 2757719 ####[facility] [address] [place] [address] Physician Orderon 04-24-2020 Physician Order [id number] 3#1.00CD:127 Normal [facility] eGFRon 04-24-2020 GFR/1.73 sq M.predicted among blacks MDRD (S/P/Bld) [Vol rate/Area] 39 mL/min/1.73 m2 Low >=59 [facility] Comment on above: Order Comment: Order added by Discern Expert. Result Comment: eGFR is race adjusted. AA=. Performed By: #### 1 8607623, 9854786, 6393038, 4917506, 1948933, 8452067 ####[facility] [address] [place] [address] GFR/1.73 sq M.predicted among non-blacks MDRD (S/P/Bld) [Vol rate/Area] 32 mL/min/1.73 m2 Low >=59 [facility] Comment on above: Order Comment: Order added by Discern Expert. Result Comment: [employer] jayden kidney disease could be indicated at eGFR's of less than 60 mL/min/1.73m2. Kidney failure is indicated at less than 15 mL/min/1.73m2. Performed By: #### 1 1151070, 6782584, 3446412, 8060209, 3630795, 6321633 ####[facility] [address] [place] [address] Physician Orderon 04-13-2020 Physician Order [id number] 5#1.00CD:127 Normal [facility] Physician Orderon 04-10-2020 Physician Order [id number] 3#1.00CD:127 Normal [facility] Vital Signs Date Time Vital Sign Value Performing Clinician Facility 01-29-2025 11:37-0400 Body height 147.32 cm John Perdomo DO Work Phone: [facility] 01-29-2025 11:37-0400 Body mass index (BMI) [Ratio] 26.5 kg/m2 John Perdomo DO Work Phone: [facility] 01-29-2025 11:37-0400 Body weight 57.6 kg John Perdomo DO Work Phone: [facility] 01-29-2025 11:37-0400 Diastolic blood pressure 50 mm[Hg] John Perdomo DO Work Phone: [facility] 01-29-2025 11:37-0400 Heart rate 72 /min John Perdomo DO Work Phone: [facility] 01-29-2025 11:37-0400 Respiratory rate 18 /min John Perdomo DO Work Phone: [facility] 01-29-2025 11:37-0400 SaO2% (BldA) [Mass fraction] 95 % John Perdomo DO Work Phone: [facility] 01-29-2025 11:37-0400 Systolic blood pressure 156 mm[Hg] John Perdomo DO Work Phone: [facility] 09-03-2024 15:36-0500 Body height 147.32 cm [facility] 09-03-2024 15:36-0500 Body mass index (BMI) [Ratio] 25.6 kg/m2 [facility] 09-03-2024 15:36-0500 Body temperature 99.3 [degF] [facility] 09-03-2024 15:36-0500 Body weight 55.56 kg [facility] 09-03-2024 15:36-0500 Diastolic blood pressure 66 mm[Hg] [facility] 09-03-2024 15:36-0500 Heart rate 73 /min [facility] 09-03-2024 15:36-0500 Respiratory rate 18 /min [facility] 09-03-2024 15:36-0500 SaO2% (BldA) [Mass fraction] 95 % [facility] 09-03-2024 15:36-0500 Systolic blood pressure 149 mm[Hg] [facility] 05-13-2024 15:30-0500 Body height 147.32 cm [facility] 05-13-2024 15:30-0500 Body mass index (BMI) [Ratio] 27.1 kg/m2 [facility] 05-13-2024 15:30-0500 Body temperature 97.5 [degF] [facility] 05-13-2024 15:30-0500 Body weight 58.96 kg [facility] 05-13-2024 15:30-0500 Diastolic blood pressure 74 mm[Hg] [facility] 05-13-2024 15:30-0500 Heart rate 72 /min [facility] 05-13-2024 15:30-0500 Respiratory rate 16 /min [facility] 05-13-2024 15:30-0500 SaO2% (BldA) [Mass fraction] 95 % [facility] 05-13-2024 15:30-0500 Systolic blood pressure 122 mm[Hg] [facility] 01-08-2024 13:03-0400 Body height 147.32 cm [facility] 01-08-2024 13:03-0400 Body mass index (BMI) [Ratio] 26.1 kg/m2 [facility] 01-08-2024 13:03-0400 Body temperature 98.6 [degF] [facility] 01-08-2024 13:03-0400 Body weight 56.75 kg [facility] 01-08-2024 13:03-0400 Diastolic blood pressure 62 mm[Hg] [facility] 01-08-2024 13:03-0400 Heart rate 69 /min [facility] 01-08-2024 13:03-0400 Respiratory rate 16 /min [facility] 01-08-2024 13:03-0400 SaO2% (BldA) [Mass fraction] 96 % [facility] 01-08-2024 13:03-0400 Systolic blood pressure 144 mm[Hg] [facility] 09-25-2023 15:52-0400 Body weight 58.74 kg [facility] 09-25-2023 15:52-0400 Diastolic blood pressure 60 mm[Hg] [facility] 09-25-2023 15:52-0400 Heart rate 65 /min [facility] 09-25-2023 15:52-0400 Systolic blood pressure 110 mm[Hg] [facility] 05-30-2023 15:40-0500 Body height 147.32 cm [place] [facility] Other [employer] Other 05-30-2023 15:40-0500 Body mass index (BMI) [Ratio] 26.92 kg/m2 [facility] Other [employer] Other 05-30-2023 15:40-0500 Body temperature 97 [degF] [place] [facility] Other [employer] Other 05-30-2023 15:40-0500 Body weight 58.42 kg [place] [facility] Other [employer] Other 05-30-2023 15:40-0500 Diastolic blood pressure 71 mm[Hg] [facility] Other [employer] Other 05-30-2023 15:40-0500 Respiratory rate 18 /min [place] [facility] Other [employer] Other 05-30-2023 15:40-0500 SaO2% (BldA) [Mass fraction] 97 % [place] [facility] Other [employer] Other 05-30-2023 15:40-0500 Systolic blood pressure 153 mm[Hg] [place] [facility] Other [employer] Other 01-30-2023 15:40-0400 Body height 147.32 cm [place] [facility] Other [employer] Other 01-30-2023 15:40-0400 Body mass index (BMI) [Ratio] 26.83 kg/m2 [place] [facility] Other [employer] Other 01-30-2023 15:40-0400 Body temperature 97.7 [degF] [place] [facility] Other [employer] Other 01-30-2023 15:40-0400 Body weight 58.24 kg [place] [facility] Other [employer] Other 01-30-2023 15:40-0400 Diastolic blood pressure 67 mm[Hg] [place] [facility]ce Other [employer] Other 01-30-2023 15:40-0400 Respiratory rate 18 /min [place] [facility] Other [employer] Other 01-30-2023 15:40-0400 SaO2% (BldA) [Mass fraction] 98 % [place] [facility] Other [employer] Other 01-30-2023 15:40-0400 Systolic blood pressure 136 mm[Hg] [place] [facility] Other [employer] Other 08-30-2022 14:40-0500 Body height 147.32 cm [place] [facility] Other [employer] Other 08-30-2022 14:40-0500 Body mass index (BMI) [Ratio] 26.29 kg/m2 [place] [facility] Other [employer] Other 08-30-2022 14:40-0500 Body temperature 98.6 [degF] [place] [facility] Other [employer] Other 08-30-2022 14:40-0500 Body weight 57.06 kg [place] [facility] Other [employer] Other 08-30-2022 14:40-0500 Diastolic blood pressure 72 mm[Hg] [place] [facility] Other [employer] Other 08-30-2022 14:40-0500 Respiratory rate 18 /min [place] [facility] Other [employer] Other 08-30-2022 14:40-0500 SaO2% (BldA) [Mass fraction] 96 % [place] [facility] Other [employer] Other 08-30-2022 14:40-0500 Systolic blood pressure 139 mm[Hg] [place] [facility] Other [employer] Other 05-30-2022 11:40-0500 Body height 147.32 cm [place] [facility] Other [employer] Other 05-30-2022 11:40-0500 Body mass index (BMI) [Ratio] 27.25 kg/m2 Geneva Mary Grace Other [employer] Other 05-30-2022 11:40-0500 Body temperature 96.2 [degF] Geneva Mary Grace Other [employer] Other 05-30-2022 11:40-0500 Body weight 59.15 kg Geneva Mary Grace Other [employer] Other 05-30-2022 11:40-0500 Diastolic blood pressure 71 mm[Hg] Geneva Mary Grace Other [employer] Other 05-30-2022 11:40-0500 SaO2% (BldA) [Mass fraction] 97 % Geneva Mary Grace Other [employer] Other 05-30-2022 11:40-0500 Systolic blood pressure 151 mm[Hg] Geneva Mary Grace Other [employer] Other 01-27-2022 12:20-0400 Body height 147.32 cm Geneva Mary Grace Other [employer] Other 01-27-2022 12:20-0400 Body mass index (BMI) [Ratio] 26.83 kg/m2 Geneva Mary Grace Other [employer] Other 01-27-2022 12:20-0400 Body temperature 98 [degF] Geneva Mary Grace Other [employer] Other 01-27-2022 12:20-0400 Body weight 58.24 kg Geneva Mary Grace Other [employer] Other 01-27-2022 12:20-0400 Diastolic blood pressure 69 mm[Hg] Geneva Mary Grace Other [employer] Other 01-27-2022 12:20-0400 Respiratory rate 18 /min Geneva Mary Grace Other [employer] Other 01-27-2022 12:20-0400 SaO2% (BldA) [Mass fraction] 96 % Geneva Mary Grace Other [employer] Other 01-27-2022 12:20-0400 Systolic blood pressure 136 mm[Hg] Geneva Mary Grace Other [employer] Other 09-20-2021 16:00-0400 Body height 147.32 cm Geneva Mary Grace Other [employer] Other 09-20-2021 16:00-0400 Body mass index (BMI) [Ratio] 27.42 kg/m2 Geneva Mary Grace Other [employer] Other 09-20-2021 16:00-0400 Body temperature 97.6 [degF] Geneva Mary Grace Other [employer] Other 09-20-2021 16:00-0400 Body weight 59.51 kg Geneva Mary Grace Other [employer] Other 09-20-2021 16:00-0400 Diastolic blood pressure 76 mm[Hg] Geneva Mary Grace Other [employer] Other 09-20-2021 16:00-0400 Respiratory rate 18 /min Geneva Mary Grace Other [employer] Other 09-20-2021 16:00-0400 SaO2% (BldA) [Mass fraction] 97 % Geneva Mary Grace Other [employer] Other 09-20-2021 16:00-0400 Systolic blood pressure 169 mm[Hg] Geneva Mary Grace Other [employer] Other 05-18-2021 15:40-0500 Body height 147.32 cm Geneva Mary Grace Other [employer] Other 05-18-2021 15:40-0500 Body mass index (BMI) [Ratio] 26.5 kg/m2 Geneva Mary Grace Other [employer] Other 05-18-2021 15:40-0500 Body temperature 97.2 [degF] Geneva Mary Grace Other [employer] Other 05-18-2021 15:40-0500 Body weight 57.52 kg Geneva Mary Grace Other [employer] Other 05-18-2021 15:40-0500 Diastolic blood pressure 79 mm[Hg] Geneva Mary Grace Other [employer] Other 05-18-2021 15:40-0500 Respiratory rate 18 /min Geneva Mary Grace Other [employer] Other 05-18-2021 15:40-0500 SaO2% (BldA) [Mass fraction] 97 % Geneva Mary Grace Other [employer] Other 05-18-2021 15:40-0500 Systolic blood pressure 137 mm[Hg] Geneva Mary Grace Other [employer] Other Encounters Encounter Date Encounter Type Care Provider Facility Start: 04-07-2025 End: 04-07-2025 ambulatory [facility] Start: 03-23-2025 End: 03-24-2025 Chiqui Teran DO Work Phone: [facility] Comment on above: 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, mild stage Start: 01-29-2025 End: 01-29-2025 ambulatory John Perdomo DO Work Phone: [facility] Work Phone: Start: 01-29-2025 End: 01-29-2025 Patient encounter procedure Geneva Jenkins MD -[facility] [place] Work Phone: Start: 01-20-2025 Non-patient / Non-visit Geneva Jenkins MD -[facility] Work Phone: Start: 11-26-2024 End: 11-26-2024 Bamboo flowsheet Mirta Teran DO Work Phone: [facility] Start: 11-26-2024 End: 11-26-2024 Bamboo flowsheet Mirta Teran DO Work Phone: [facility] Start: 11-26-2024 End: 11-26-2024 ambulatory MIRTA TERAN Not Available Start: 09-16-2024 End: 09-16-2024 ambulatory [facility] Start: 09-03-2024 End: 09-03-2024 ambulatory [facility] Work Phone: Start: 09-03-2024 End: 09-03-2024 Patient encounter procedure [facility] [place] Work Phone: Start: 08-26-2024 Non-patient / Non-visit [facility] Work Phone: Start: 05-15-2024 End: 05-15-2024 Bamboo flowsheet Mirta Teran DO Work Phone: [facility] Start: 05-15-2024 End: 05-15-2024 Bamboo flowsheet Mirta Teran DO Work Phone: [facility] Start: 05-15-2024 End: 05-15-2024 ambulatory MIRTA TERAN Not Available Start: 05-13-2024 End: 05-13-2024 ambulatory [facility] Work Phone: Start: 05-13-2024 End: 05-13-2024 Patient encounter procedure [facility] [place] Work Phone: Start: 05-09-2024 Non-patient / Non-visit [facility] Work Phone: Start: 01-08-2024 End: 01-08-2024 ambulatory [facility] Work Phone: Start: 01-08-2024 End: 01-08-2024 Patient encounter procedure [facility] Work Phone: Start: 01-01-2024 Non-patient / Non-visit [facility] Work Phone: Start: 09-25-2023 End: 09-25-2023 ambulatory [facility] Work Phone: Start: 09-25-2023 End: 09-25-2023 Patient encounter procedure [facility] Work Phone: Start: 08-08-2023 End: 08-08-2023 ambulatory Geneva Mary Grace Other [employer] Other Start: 08-08-2023 Telephone encounter Geneva Mary Grace [facility] Start: 07-11-2023 End: 07-11-2023 ambulatory Geneva Mary Grace Other [employer] Other Start: 07-11-2023 Telephone encounter Geneva Mary Grace [facility] Start: 05-30-2023 End: 05-30-2023 ambulatory Geneva Mary Grace Other [employer] Other Start: 05-30-2023 Office outpatient visit 25 minutes Geneva Mary Grace [facility] Start: 05-23-2023 End: 05-23-2023 ambulatory Geneva Mary Grace Other [employer] Other Start: 05-23-2023 Telephone encounter Geneva Mary Grace [facility] Start: 01-30-2023 End: 01-30-2023 ambulatory Geneva Mary Grace Other [employer] Other Start: 01-30-2023 Encounter by compute r link Geneva Mary Grace [facility] Start: 01-30-2023 Office outpatient visit 25 minutes Geneva Mary Grace [facility] Start: 10-27-2022 End: 10-27-2022 ambulatory Geneva Mary Grace Other [employer] Other Start: 10-27-2022 Telephone encounter Geneva Mary Grace [facility] Start: 10-26-2022 End: 10-27-[address] JOHN PERDOMO Facility:[facility] Start: 08-30-2022 End: 08-30-2022 ambulatory Geneva Mary Grace Other [employer] Other Start: 08-30-2022 Office outpatient visit 25 [...] End: 05-30-2022 ambulatory Geneva Mary Grace Other [employer] Other Start: 05-30-2022 Office outpatient visit 25 minutes Geneva Mary Grace [facility] Start: 05-27-2022 End: 05-28-[address] JOHN PERDOMO Facility:[facility] Start: 05-23-2022 Telephone encounter Geneva Mary Grace [facility] Start: 05-23-2022 End: 05-24-[address] JOHN PERDOMO [facility] [employer] Other Start: 05-14-2022 End: 05-15-2022 ambulatory KWAN ROSALES Facility:[facility] Start: 05-12-2022 End: 05-12-2022 ambulatory Geneva Mary Grace Other [employer] Other Start: 05-12-2022 Telephone encounter Geneva Mary Grace [facility] Start: 05-11-2022 End: 05-12-2022 ambulatory KWAN ROSALES Facility:[facility] Start: 03-17-2022 End: 03-18-[address] JOHN PERDOMO Facility:[facility] Start: 01-27-2022 End: 01-27-2022 ambulatory Geneva Mary Grace Other [employer] Other Start: 01-27-2022 Office outpatient visit 25 minutes Geneva Mary Grace [facility] Start: 01-21-2022 End: 01-22-[address] JOHN PERDOMO Facility:[facility] Start: 01-17-2022 End: 01-18-[address] JOHN PERDOMO Facility:[facility] Start: 01-13-2022 End: 01-13-2022 ambulatory Geneva Mary Grace Other [employer] Other Start: 01-13-2022 Telephone encounter Geneva Mary Grace [facility] Start: 12-16-2021 Telephone encounter Geneva Mary Grace [facility] Start: 12-16-2021 End: 12-17-[address] JOHN PERDOMO [facility] [employer] Other Start: 12-09-2021 End: 12-10-2021 ambulatory JOHN PERDOMO Facility:[facility] Start: 12-08-2021 End: 12-08-2021 ambulatory Geneva Mary Grace Other [employer] Other Start: 12-08-2021 Telephone encounter Geneva Mary Grace [facility] Start: 12-07-2021 End: 12-07-[address] JOHN PERDOMO Facility: Start: 12-06-2021 End: 12-07-[address] JOHN PERDOMO Facility: Start: 12-01-2021 End: 12-02-[address] JOHN PERDOMO Facility: Start: 11-19-2021 End: 11-20-[address] JOHN PERDOMO Facility:[facility] Start: 11-01-2021 End: 11-01-2021 ambulatory Geneva Mary Grace Other [employer] Other Start: 11-01-2021 Encounter by compute r link Geneva Mary Grace [facility] Start: 10-28-2021 End: 10-28-2021 ambulatory Geneva Mary Grace Other [employer] Other Start: 10-28-2021 Telephone encounter Geneva Mary Grace [facility] Start: 10-13-2021 End: 10-13-2021 ambulatory Geneva Mary Grace Other [employer] Other Start: 10-13-2021 Encounter by [employer] r link Geneva Mary Grace [facility] Start: 10-06-2021 End: 10-06-2021 ambulatory Geneva Mary Grace Other [employer] Other Start: 10-06-2021 Telephone encounter Geneva Mary Grace [facility] Start: 09-21-2021 End: 09-21-2021 ambulatory Geneva Mary Grace Other [employer] Other Start: 09-21-2021 Telephone encounter Geneva Mary Grace [facility] Start: 09-20-2021 End: 09-20-2021 ambulatory Geneva Mary Grace Other [employer] Other Start: 09-20-2021 Office outpatient visit 25 minutes Geneva Mary Grace [facility] Start: 08-01-2021 End: 08-01-2021 ambulatory Geneva Mary Grace Other [employer] Other Start: 08-01-2021 Encounter by [employer] r link Gneeva Mary Grace [facility] Start: 07-18-2021 End: 07-18-2021 ambulatory Geneva Mary Grace Other [employer] Other Start: 07-18-2021 Encounter by [employer] r link Geneva Mary Grace [facility] Start: 05-18-2021 End: 05-18-2021 ambulatory Geneva Mary Grace Other [employer] Other Start: 05-18-2021 Office outpatient visit 25 minutes Geneva Mary Grace [facility] Procedures Date Procedure Procedure Detail Performing Clinician Start: 11-26-2024 Visual field xm uni/ bi w/interp extended exam Mirta Teran DO Work Phone: Start: 11-26-2024 End: 11-26-2024 [facility] medical &eval comprhnsv estab pt 1/> Corneal scar, right [...] DO Work Phone: Start: 05-15-2024 End: 05-15-2024 [facility] medical xm&eval comprhnsv estab pt 1/> Primary [...] 11-26-2025 Glaucoma screening Diabetes: R etinopathy Screening [facility] Start: 06-04-2025 End: 06-04-2025 Patient encounter procedure 06/04/2025 1:15 PM EST Office Visit [facility] [address] [place] [address] Mirta Teran, DO [address] [place] [address] [facility] Start: 05-15-2025 Glaucoma screening Diabetes: R etinopathy Screening [facility] Start: 03-03-2025 Influenza vaccination [facility] Start: 11-26-2024 End: 11-26-2024 Patient encounter procedure [facility] Comment on above: Arrived Start: 03-03-2024 Influenza vaccination Influenza Vacc ine (#1) [facility] Start: 10-08-2020 Hemoglobin A1c measurement Diabetes: Hemoglobin A1C [facility] Start: 1991 Screening for malign ant neoplasm of breast Mammogram [facility] Start: 1970 Pneumococcal Vaccine : 65+ Years (1 of 2 - PCV) Pneumococcal Vaccine: 65+ Years (1 of 2 - PCV) [facility] Start: 1970 Urine screening for protein Diabetes: Urine Protein Screening [facility] Start: 1957 Pneumococcal Vaccine : 65+ Years (1 of 2 - PCV) Pneumococcal Vaccine: 65+ Years (1 of 2 - PCV) [facility] Start: 1950 Medicare Annual Well ness (AWV) Medicare Annual Wellness (AWV) [facility] Start: 1950 Screening for malign ant neoplasm of colon [facility] Immunofixation for Urine Fir [facility] Renal function 1999 panel - Serum or Plasma [facility] Renal function 1999 panel - Serum or Plasma [facility] Renal function 1999 panel - Serum or Plasma [facility] Renal function 1999 panel - Serum or Plasma [facility] Renal function 1999 panel - Serum or Plasma [facility] Immunizations Immunization Date Immunization Notes Care Provider Fa cility NEGATED: Highlighted row has not occurred!06-05-2019 influenza, high dose seasonal, preservative-free Patient Objection Geneva Jenkins Other [employer] Other Payers Date Payer Category Payer Private Health Insurance [employer] [id number] 2016 Medicare MEDICARE .[id number] 1959 Medicare [id number] 1959 Unknown [id number] 1951 Unknown [id number] 2.16.840.1.237169.3.579.2. 647 1951 Unknown [id number] 2.16.840.1.421356.3.579.2. 593 1951 Unknown [id number] 2.16.840.1.111549.3.579.2. 593 1951 Unknown [id number] 2.16.840.1.609102.3.579.2. 593 1951 Unknown [id number] 2.16.840.1.345042.3.579.2. 593 1951 Unknown [id number] 2.16.840.1.753685.3.579.2. 593 1951 Unknown [id number] 2.16.840.1.098191.3.579.2. 593 1951 Unknown [id number] 2.16.840.1.565853.3.579.2. 593 1951 Unknown [id number] 2.16.840.1.431506.3.579.2. 593 1951 Unknown [id number] 2.16.840.1.016240.3.579.2. 593 1951 Unknown [id number] 2.16.840.1.528506.3.579.2. 593 1951 Unknown [id number] 2.16.840.1.713493.3.579.2. 593 1951 Unknown [id number] 2.16.840.1.340249.3.579.2. 593 1951 Unknown [id number] 2.16.840.1.763220.3.579.2. 593 1951 Unknown [id number] 2.16.840.1.857442.3.579.2. 593 1951 Unknown [id number] 2.16.840.1.847987.3.579.2. 593 1951 Unknown [id number] 2.16.840.1.467284.3.579.2. 593 1951 Unknown [id number] 2.16.840.1.162461.3.579.2. 593 1951 Unknown [id number] 2.16.840.1.356276.3.579.2. 593 1951 Unknown [id number] 2.16.840.1.888231.3.579.2. 593 1951 Unknown [id number] 2.16.840.1.935764.3.579.2. 593 1951 Unknown [id number] 2.16.840.1.317434.3.579.2. 1259 1951 Unknown [id number] 2.16.840.1.832575.3.579.2. 1259 Self-pay Self Pay [id number] Unknown Regular Insurance [id number] Social History Date Type Detail Facility Unknown if ever smoked [facility] [employer] Other Start: 05-15-2024 Sex Assigned At N [facility] [employer] Other Start: 11-23-2017 End: 09-26-2023 Tobacco smoking status NMIS Never smoked tobacco (finding) [facility] Start: 1950 Sex Assigned At Female [facility] Start: 05-13-2024 End: 09-03-2024 Sex Female (finding) [facility] Start: 09-26-2023 Tobacco use and exposure Smokeless tobacco non-user [facility] Start: 05-15-2024 Alcoholic beverage intake Lifetime non-drinker (finding) [facility] Start: 05-15-2024 History of Social function [facility] Start: 09-26-2023 Alcohol Comment caffeine intak e: 1-2 cups per day soda/pop 1-2 cans per week [facility] Start: 05-01-2023 Gender identity Identifies as female gender (finding) [facility] Clinical Notes 04-27-2020 to 04-07-2025 Mirta Teran, DO - 11/26/2024 2:00 PM EDTMirta Teran, DO - 05/15/2024 1:30 PM EST Note Date & Type Note Facility 04-07-2025 Note [facility] - [facility] Subjective Claudia Estrella is a [...] Alcohol use: Not Currently Drug use: Never DM Claudia is seen in follow-up. She is [...] and dry. Neurologi (more content not included)... [facility] 11-26-2024 Note Right Eye Reliability was poor. Progression has been stable. Foveal threshold was normal. Findings include superior nasal step defect, inferior nasal step defect, central scotoma. Left Eye Reliability was borderline. Progression has been stable. Foveal threshold was normal. Findings include superior arcuate defect, inferior arcuate defect, central scotoma. [facility] 11-26-2024 History of Present illness Narrative [...] tears were recommended. documented in this encounter [facility] 09-16-2024 Note [facility] - [facility] Subjective Claudia Estrella is a 74 y.o. year old female patient being seen for follow up 6 mo follow up CAD, chronic diastolic heart failure, and hypertension. Had labs last month for nephrology. She only had 1 tablet left of metoprolol (50mg) and took it yesterday. Hasn't had any today. She was told by [facility] that she can't get it until . [...] Erythromycin Base Hydromorphone (more content not included)... [facility] 05-15-2024 Note Right Eye Quality was good. Scan locations included subfoveal. Progression has been stable. Findings include abnormal foveal contour, intraretinal fluid, subretinal fluid. Left Eye Quality was good. Scan locations included subfoveal. Progression has been stable. Findings include abnormal foveal contour. Notes Area of atrophy w/ retinal pigment epithelium (RPE) tear [facility] 05-15-2024 History of Present illness Narrative [...] tears were recommended. documented in this encounter [facility] 05-30-2023 Evaluation note Encounter Date Diagnosis [...] has adequate Iron stores. Continue oral iron. [employer] Other 07-31-2023 Evaluation note* Encounter Date Diagnosis [...] has adequate Iron stores. Continue oral iron. [employer] Other 02-28-2023 Evaluation note* Encounter Date Diagnosis [...] past. Will defer this to the PCP. [employer] Other 11-28-2022 Evaluation note* Encounter Date Diagnosis [...] an adequate [employer] stores. Continue oral iron. [employer] Other 11-21-2022 Evaluation note* Encounter Date Diagnosis Assessment Notes Treatment Notes Treatment Clinical Notes May, CKD (chronic kidney disease) stage 4, GFR 15-29 ml/min (ICD-10 - N18.4) [employer] Other 07-28-2022 Evaluation note* Encounter Date Diagnosis [...] an adequate [employer] stores. Continue oral iron. [employer] Other 03-22-2022 Evaluation note* Encounter Date Diagnosis Assessment Notes Treatment Notes Treatment Clinical Notes Aug, Hypokalemia (ICD-10 - E87.6) [employer] Other 03-21-2022 Evaluation note* Encounter Date Diagnosis [...] an adequate [employer] stores. Continue oral iron. [employer] Other 01-16-2022 Evaluation note* Encounter Date Diagnosis Assessment Notes Treatment Notes Treatment Clinical Notes Jul, Hyperuricemia (ICD-1 0 - E79.0) [employer] Other 11-16-2021 Evaluation note* Encounter Date Diagnosis [...] an adequate [employer] stores. Continue oral iron. [employer] Other 11-02-2020 NoteRounds at this time with [...] notified Maryan Lopez. 1:30 PM - Per RBYCE Au, patient has been discharged home & patient very upset. PT=No needs. Did not see OT eval done prior to d/c. Per Dr Guzmán - patient did not have stress test done today as it was not on schedule. MURPHY Amor notified Taylor Fisher & Maryan Lopez.[facility] HospitalComment on above:Result Comment: Electronically Signed By: Kip WU, Zuleyma Mcdonough\.br\Date and Time Signed: 05/04/20 13:53 [id number] NoteBasic Information Cardiology Progress Subjective Cardiology consulted over weekend for chest discomfort post operatively. Her EKG was non-acute and troponin trended negative. She does have a monorail hooker and reportedly had stress testing in August [...] mg/dL High (05/04/20 12:12:00) POC Device SN: [id number] (05/04/20 12:12:00) POC Username: NESHA COTA05/04/20 12:12:00) Diagnostic Results (05/02/2020 13:21 EDT US [...] prefers all testing to be performed at [facility]. Faxed notes to her primary monorail hooker's office, Dr Fish. Attempted to schedule stress testing with aurelia Hudson. Ordered: EC Stress Echo Complete w/ Contrast 2. Hypertension (I10: Essential (primary) hypertension) Continue current medications and follow up with primary monorail hooker on discharge. 3. Diabetes (E11.9: Type 2 [...] discuss this management further with her primary monorail hooker, but agreeable to starting statin for now. Patient is offered in-patient stress echocardiogram but declines as she wants to be discharged. She is offered out patient stress testing at [facility] tomorrow am and she prefers to have this done at [facility]. Per Central Scheduling at [facility], Dobutamine Stress Echo's are not performed at the facility. She will have close FU with Dr Fish to move forward with testing. D/W Dr Guzmán. Faxed info from [facility] Hospital stay to her primary monorail hooker. Attestation Discussed patient findings and plan of [...] tab(s), Oral, Bedtime saturnino (more content not included)...[facility] HospitalComment on above: Result Comment: Electronically Signed By: Trudy SUAZO CNP\.br\Date and Time Signed: 05/04/20 13:15 EST\.br\Electronically Co-Signed By: Jay Jay Ramírez MD\.br\Date and Time Co-Signed: 05/04/20 13:19 [id number] NoteIV removed. nurse chief service observer emptied. patient and patients daughter verbalized understanding of discharge teaching. patient refused flu vaccination. patient did not verbalize any questions or concerns atthis time.[facility]11-[facility] Note Admission Information Admitting Physician - [...] done and was unable to be scheduled onMond as well. Patient was given the option to stay in the hospital for another day versus following up with her monorail hooker and she has opted to do the latter. This is reasonable as she is chest pain-free at rest as well as on exertion. Patient is already on lisinopril, metoprolol, aspirin. Lipitor 20 mg was added for further risk reduction. She will follow-up with her primary monorail hooker Dr. Fish. Regarding her recent Ortho surgery she will do weightbearing activity as tolerated and use crutchesfor assistance with ambulation. Dr. Kushal Guzmán Hospitalist This report was transcribed using voice recognition software. Every effort was made to ensure accuracy, however, inadvertently computerized supervisor metal placing mistakes may be present. Significant Findings POWERSCRIBE [...] pain) Ordered: Hospital Discharge Day 30 Min/Less 61089 2. Hypertension (I10: Essential (primary) hypertension) Ordered: Hospital Discharge Day 30 Min/Less 98345 3. Diabetes (E11.9: Type 2 diabetes mellitus without complications) Ordered: atorvastatin, 20 mg = 1 tab(s), Oral, Bedtime, # 30 tab(s), Refills(s) 1, Pharmacy: [facility]/pharmacy #[id number], 141.5, cm, 04/24/20 13:16:00 EDT, Height/Length Dosing, 69, kg, 05/02/20 5:50:00 EDT, Weight Dosing Hospital Discharge Day 30 Min/Less 28899 4. Acute medial meniscus tear of left knee (S83.242A: Other tear of medial meniscus, current injury, left knee, initial encounter) Ordered: Hospital Discharge Day 30 Min/Less 90128 5. Localized osteoarthritis of left knee (M17.12: Unilateral primary osteoarthritis, left knee) Ordered: Hospital Discharge Day 30 Min/Less 60631 6. No contraindication to deep vein thrombosis (DVT) prophylaxis (Z78.9: Other specified health status) Ordered: Hospital Discharge Day 30 Min/Less 04613 Bruit (R09.89: Other specified symptoms and signs [...] With When Contact Information Follow up with Structural Shop [employer] Within 1 week Additional Instructions: JOHN PERDOMO [address] [place] [address]- Business (1) Additional Instructions: David Talamantes [address] [place], [place] [id number] Business (1) Additional Instructions: Keep scheduled (more content not included)...[facility] HospitalComment on above:Result Comment: Electronically Signed By: Kushal GUZMÁN MD\.br\Date and Time Signed: 05/04/20 12:[id number] NoteDr. Amir rounded with patient earlier. CRM [...] time. Anticipated discharge 05/04/2020 home. CRM to follow.[facility] HospitalComment on above:Result Comment: Electronically Signed By: Terri Berger RN\.br\Date and Time Signed: 05/02/20 10:06 [id number] NoteReason for Consultation Chest pain postoperatively History of Present Illness Mrs. Estrella is a very pleasant 70-year-old diabetic female with hypertension, unknown cholesterol, previously seen by monorail hooker Dr. Fish in September 2019 for what [...] testing apparently took place in a private [facility] office, so I am unsure whether we [...] test in September 2019 at a private monorail hooker 's office, reportedly LV dysfunction per thepatient, [...] she undergo a dobutami (more content not included)...[facility] HospitalComment on above:Result Comment: Electronically Signed By: Eleuterio VIGIL, John Carlson\Date and Time Signed: 05/02/20 08:35 [id number] NoteBasic Information Accompanied by: Family member Source [...] 84 mg/dL (05/01/20 16:07:00) POC Device SN: [id number] (05/01/20 16:07:00) POC Username: ALEXIA HALL (05/01/20 16:07:00) Diagnostic Results EKG NSR [address]-T wave changes Images No qualifying data available. Assessment/Plan 1. Other chest pain (R07.89: Other chest pain) - possible ACS, risk factors include DM, HTN, obesity - telemetry, troponin - ASA, fasting lipid profile - consult [facility] cardiology 2. Hypertension (I10: Essential (primary) hypertension) [...] acetaminophen 325 mg Tab (more content not included)...[facility] HospitalComment on above:Result Comment: Electronically Signed By: JUN VIGIL, Nhung\.br\Date and Time Signed: 05/01/20 18:30 [id number] Note [id number]:127[facility] Evaluation noteNo [facility] [facility] Other Evaluation note* Diagnosis Onset Date Resolution Status Anemia of renal disease acut e CKD (chronic kidney disease) stage 4, GFR 15-29 ml/min acute Hyperlipidemia acute [id number] acute Hyperuricemia acute Hypokalemia acute Microscopic hematuria acute Secondary hyperparathyroidism acute Type 2 diabetes mellitus wit h diabetic chronic kidney disease acute [facility] Work Phone: Evaluation note* Diagnosis Onset [...] Hypokalemia acute May 3:17pm Microscopic hematuria acute Nov emb2023 3:17pm Secondary hyperparathyroidism acute May 13, 2024 3:17pm Type 2 diabetes mellitus wit h diabetic chronic kidney disease acute May 13, 2024 3:17pm [facility] Work Phone: Evaluation note* Diagnosis Primary open angle glaucoma (POAG) of both eyes, mild stage (CMS/HCC)- Primary 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 (CMS/HCC) Corneal scar, right eye Unspecified corneal opacity Dry eyes Unspecified tear film insufficiency documented in this encounter [facility] HealthcareEvaluation noteNo assessment information availableClermont [facility] Work Phone: Evaluation note* Diagnosis Corneal scar, right eye- Primary Unspecified corneal opacity Dry eyes Unspecified tear film insufficiency 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 (CMS/HCC) Primary open angle glaucoma (POAG) of both eyes, mild stage documented in this encounter [facility] HealthcareEvaluation note* Diagnosis Onset Date Resolution Status Admit Date Anemia of renal disease acute J 2024 11:35am CKD (chronic kidney disease) stage 4, GFR 15-29 ml/min acute January 29, 025 11:35am Hyperlipidemia acute January 29, 2025 11:35am Hypertensive chronic kidney disease with stage 1 through stage 4 chronic ki acute January 29, 2025 11:35am Hyperuricemia acute January 29, 2025 11:35am Hypokalemia acute January 29 11:35am Microscopic hematuria acute Dec 11:35am Secondary hyperparathyroidism acute January 29, 2025 11:35am Type 2 diabetes mellitus wit h diabetic chronic kidney disease acute January 29, 2025 11:35am [facility] Work Phone: Evaluation note* Diagnosis Primary open angle glaucoma (POAG) of both eyes, mild stage documented in this encounter [facility] HealthcareHistory general Narrative - Reported* Type Description [...] eye surgery 04/2021 Hospitalization History see above [employer] Other history general Narrative - Reported* Type [...] RIGHT EYE 2021 Hospitalization History see above [employer] Other history general Narrative - Reported* Type [...] HEART CATH 12/2021 Hospitalization History see above [facility] [employer] Other Reason for referral (narrative)No reason for referral information availableClermont [facility] Work Phone: Summary Purpose Family History [...] disease) stage 4, GFR 15-29 ml/min Hyperlipidemia [id number] Hyperuricemia Hypokalemia Microscopic hematuria Secondary hyperparathyroidism Type 2 diabetes mellitus with diabetic chronic kidney disease Chief Complaint RENAL 4 MONTH F/U Reason for Visit Anemia of renal dise ase CKD (chronic kidney disease) stage 4, GFR 15-29 ml/min Hyperlipidemia [id number] Hyperuricemia Hypokalemia Microscopic hematuria Secondary hyperparathyroidism Type [...] section and content) DATE CREATED AUTHOR 03/07/2021 [facility] DATE CREATED AUTHOR AUTHOR'S ORGANIZ ATION 08/05/2021 [facility] DATE CREATED AUTHOR AUTHOR'S ORGANIZ ATION 12/16/2021 [facility] DATE CREATED AUTHOR AUTHOR'S ORGANIZ ATION 10/29/2022 [facility] DATE CREATED AUTHOR AUTHOR'S ORGANIZ ATION 11/29/2024 [facility] EPIC DATE CREATED AUTHOR AUTHOR'S ORGANIZ ATION 04/14/2025 [facility] REASON FOR VISIT (unrecogniz ed section [...] May 13, 2024 End: May 13, 2024 Adaptive Physical Education Specialist Relationship Specialty Start Date End Date Unallocated, Ara Robertson MD [facility] [place] [address] [place] [address] PCP - General Family Medicine 08/18/23 John Perdomo MD [address] [place] [id number] Referring Physician Orthopaedic Surgery 05/08/23 Adaptive Physical Education Specialist Relationship Specialty Start Date End Date Unallocated, Ara Robertson MD [address] [place] [address] [place] [address] PCP - General Family Medicine 08/18/23 John Perdomo MD [address] [place] [id number] Referring Physician Orthopaedic Surgery 05/08/23 Team Status: Active Member Role Status Dates John Perdomo DO Primary Care Provider Active Start: August 26, 2024 Geneva Jenkins MD Attending Provider Active Start : August 26, 2024 Team Status: Inactive Member Role Status Dates John ePrdomo DO Primary Care Provider Active Start: September 03, 2024 End: September 03, 2024 Geneva Jenkins MD Attending Provider Active Start : September 03, 2024 End: September 03, 2024 Adaptive Physical Education Specialist Relationship Specialty Start Date End Date Unallocated, Ara Robertson MD [facility] [address] [place] [id number] PCP - General Family Medicine 08/18/23 John Perdomo MD [address] [place] [id number] Referring Physician Orthopaedic Surgery 05/08/23 Adaptive Physical Education Specialist Relationship Specialty Start Date End Date Unallocated, Ara Robertson MD [address] [place], [place] [phone] PCP - General Family [facility] 08/18/23 John Perdomo MD [address] [place] [phone] Referring Physician Orthopaedic Surgery 05/08/23 Team Status: [...] January 29, 2025 End: January 29, 2025 Adaptive Physical Education Specialist Relationship Specialty Start Date End Date Unallocated, Ara Robertson MD [address] [place] [address] PCP - General Family [facility] 08/18/23 John Perdomo MD [address] [place] [id number] Referring Physician Orthopaedic Surgery 05/08/23 Goals (unrecognized [...] BE BASED ON THE PRIMARY CLINICAL RECORDS. [employer] [facility]. provides no warranty or guarantee of the accuracy or completeness of information in this document.
[2025-04-15 16:57] LABS: Anion Gap 16.5; Blood Urea Nitrogen 61.0 mg/dL (7.0-18.0); Calcium 9.2 mg/dL (8.5-10.1); Carbon Dioxide 25.5 mmol/L (21.0-32.0); Chloride 103 mmol/L (98-107); Estimated GFR (African America 22 (>=60 mL/min/1.73m^2); Estimated GFR (Non-African Ame 18 (>=60 mL/min/1.73m^2); Glucose 157 mg/dL (74-106); Potassium 4.0 mmol/L (3.5-5.1); Sodium 141 mmol/L (136-145)
== END 2025-05-05 11:59 | disposition home or self-care (01) ==
LOC: LAB 16:46
PROVIDERS: PCP Family Medicine; Visit Provider Internal Medicine
DX: Z51.81 Encounter for therapeutic drug level monitoring (principal); N18.9 Chronic kidney disease, unspecified; I50.30 Unspecified diastolic (congestive) heart failure
CPT/HCPCS: 36415; 80048

== ENCOUNTER 2025-04-18 09:42 | Outpatient (OUT) | payer MEDICARE, OTHER, SELFPAY ==
--- OUTSIDE RECORDS SUMMARY | 2025-04-18 09:49 | XMS_ITS | CCD ---
Author Organization [facility] Care Team Providers Care Clean Up Supervisor Name Role Phone JOHN PERDOMO Referring Unavailable [...] JOHN Mcdonough Primary Care Unavailable MOUKARBEL, DR ANGEELS Consulting Unavailable MOUKARBEL, DR ANGELES Admitting Unavailable [...] Care Provider Geneva Jenkins MD Attending Provider [phone] DEACON CHURCH Attending Unavailable KARTHIK FISH Attending Unavailable KATRHIK FISH Attending Unavailable Allergies Allergy Classification Reported Allergen(s) Allergy Type Date of Onset Reaction(s) Facility Opioid Agonists (1 source) HYDROmorphone Drug Allergy 4 Unknown Reaction [facility] Penicillins (antibiotic) (1 source) Penicillin G Benzathine Drug Allergy 4 [facility] Spironolactone (1 source) Spironolactone Drug Allergy 4 [facility] (2 sources) Erythromycin; Translations: [ERYTHROMYCIN] Drug Allergy 1 [facility] Repository (2 sources) HYDROmorphone Drug Allergy 1 [facility] Rep[facility] (2 sources) Penicillins; Translations: [PENICILLINS] Drug allergy (disorder) 1 [facility] Repository (20 sources) Erythromycin Drug Allergy 2 anaphylaxis, Other, Unknown [facility] Healthcare (20 sources) HYDROmorphone; Translations: [HYDROMORPHONE] Drug Allergy 2 [facility] (20 sources) Penicillin Drug Allergy Unknown [facility] Other (20 sources) Penicillin G Benzathine Drug allergy 3 [facility] (12 sources) Erythromycin; Translations: [ERYTHROMYCIN BASE] Drug Allergy 0 Anaphylaxis [facility] Repository (1 source) Penicillin Drug Allergy [facility] Repository (8 sources) Spironolactone; Translations: [SPIRONOLACTONE] Drug Allergy 3 [facility] (5 sources) Penicillin G Drug Allergy 3 Other [facility] Healthcare (4 sources) Penicillins Drug Allergy 2 [facility] (4 sources) Spironolactone Drug Allergy 4 [facility] Medications Current Medications Medication Drug Class(es) Dates [...] D2) 1,250 mcg (50,000 unit) capsule Active 72800 UNIT PO .COMPLEX July 29, 2024 7:32pm 50,000 units orally every other week; Complies with drug therapy Start: 09-25-2023 End: 07-29-2024 take 1 capsule by mouth every week Ergocalciferol (Vitamin D2) 1,250 mcg (50,000 unit) capsule Discontinued 95543 UNIT PO EVERY 2 WEEKS September 25, 2023 12:00am July 29, 2024 7:33pm [employer]: TAKE 1 CAPSULE BY MOUTH ONE TIME PER WEEK; Note: Source Status: Start; Refills: 2; Qty: 12 Capsule; Provider: Mary Grace Bean ( ) take 1 capsule by mo [facility] every week Vitamin D (Ergocalciferol) 1.25 MG (67036 UT) TAKE 1 CAPSULE BY MOUTH ONE TIME PER WEEK for 84 Active take 1 capsule by mo ut every other week Ergocalciferol 1.25 MG (27753 UT) 1 capsule Orally Q2 week for [...] Start: 09-06-2023 take 1 tablet by yossi every other day Ferrous Sulfate Active 0 .ROUTE .COMPLEX September 06, 2023 4:49pm TAKE 1 TABLET BY MOUTH EVERY OTHER DAY Start: 09-05-2023 End: 03-06-2024 take 1 tablet by mouth every other [...] Start: 09-20-2021 take 1 tablet by yossi every twelve hours hydrALAZINE HCl 25 MG [...] disease (3 sources) Atherosclerotic heart disease of [place] coronary artery without angina pectoris; Translations: [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 *Increase bumex to 2mg BID. *Have weekly labs to follow-up on kidney function Normal [facility] Office Visiton 04-15-2025 Follow-up visit [id number] Claudia Estrella 1950 F Date Provider Department Center 04/15/2025 166-DEACON CHURCH ADY Calero Family History Problem Relation Age of Onset Heart attack Mother Heart failure Mother Heart attack Father Family Status - Relation Status Age at Mother Father Level of Service:13242 UT OFFICE/OUTPATIENT ESTABLISHED MOD [facility] 30 MIN Reason for Visit and Comments: Follow-up [351939] - Patient is here today for a follow up [facility] admission. Patient states she feels better but not great. Patient states the Hospitalist changed her medications and cut her bumex in half, changed her potassium to 1 a day. Coronary Artery Disease [187] Hypertension [426509] Hyperlipidemia [182] Congestive Heart Failure [127] Heart Murmur [124] stage 4 kidney disease [Other] Shortness of Breath [247779] - MCALLISTER. Normal [facility] Orders Onlyon 04-10-2025 Orders Only [id number] Claudia Estrella 1950 Date Provider Department Center 04/10/2025 [id number], HISTORICAL ADY [facility] Family History Problem Relation Age of Onset Heart attack Mother Heart failure Mother Heart attack Father Family Status - Relation Status Age at Mother Father Normal [facility] Office Visiton 04-07-2025 Follow-up visit [id number] Claudia Estrella 1950 Date Provider Department Center 04/07/2025 367-KARTHIK FISH ADY [facility] Family History Problem Relation Age of Onset Heart attack Mother Heart failure Mother Heart attack Father Family Status - Relation Status Age at Mother Father Level of Service:92749 UT OFFICE/OUTPATIENT ESTABLISHED MOD MDM 30 MIN Normal [facility] Erythrocyte distribution wid th Auto (RBC) [Ratio]Ordered By: Geneva Jenkins on 01-20-2025 Erythrocyte distribution width (RBC) [Ratio] 13.7 % 11.0-15.0 [facility] Estimated glomerular filtrat ion rate (GFR) non- AmericanOrdered By: Geneva Jenkins on 01-20-2025 GFR/1.73 sq M.predicted among non-blacks MDRD (S/P/Bld) [Vol rate/Area] 20 mL/min/{1.73_m2} Low >=60 mL/min/1.73m 2 [facility] Hematocrit Auto (Bld) [Volum e fraction]Ordered By: Geneva Jenkins on 01-20-2025 Hematocrit (Bld) [Volume fraction] 32.6 % Low 36.0-48.0 [facility] Hemoglobin [Mass/volume] in BloodOrdered By: Geneva Jenkins on 01-20-2025 Hemoglobin (Bld) [Mass/Vol] 11.1 g/dL Low 12.0-16.0 [facility] Iron binding capacity [Mass/ volume] in Serum or PlasmaOrdered By: Geneva Jenkins on 01-20-2025 Iron binding capacity [Mass/Vol] 279.0 ug/dL 250.0-450.0 [facility] Iron saturation [Mass Fracti on] in Serum or PlasmaOrdered By: Geneva Jenkins on 01-20-2025 Iron saturation [Mass fraction] 17.9 % [facility] Laboratory - Chemistry and C hemistry - challengeOrdered By: Geneva Jenkins on 01-20-2025 Albumin [Mass/Vol] 3.2 g/dL Low 3.4-5.0 [facility] Calcium [Mass/Vol] 9.2 mg/dL 8.5-10.1 [facility] Chloride [Moles/Vol] 105 mmol/L 98-107 [facility] CO2 [Moles/Vol] 25.4 mmol/L 21.0-32.0 [facility] Creatinine [Mass/Vol] 2.33 mg/dL High 0.55-1.02 [facility] GFR/1.73 sq M.predicted MDRD (S/P/Bld) [Vol rate/Area] 25 mL/min/{1.73_m2} Low >=60 mL/min/1.73m 2 [facility] Glucose [Mass/Vol] 158 mg/dL High 74-106 [facility] Iron [Mass/Vol] 50.0 ug/dL 50.0-170.0 [facility] Magnesium [Mass/Vol] 2.1 mg/dL 1.8-2.4 [facility] Potassium [Moles/Vol] 4.2 mmol/L 3.5-5.1 [facility] Sodium [Moles/Vol] 142 mmol/L 136-145 [facility] Urate [Mass/Vol] 5.4 mg/dL 2.6-6.0 [facility] Urea nitrogen [Mass/Vol] 50.0 mg/dL High 7.0-18.0 [facility] Urea nitrogen/Creatinine [Mass ratio] 21.5 mg/mg [facility] Bilirubin Ql (U) Negative NEGATIVE [facility] Glucose (U) [Mass/Vol] Negative NEGATIVE [facility] Ketones Ql (U) Negative NEGATIVE [facility] pH (U) 6.0 [pH] 5.0-9.0 [facility] Specific gravity (U) [Rel density] 1.020 1.005-1.025 [facility] Urobilinogen Qn (U) 0.2 {Kelly'U}/dL 0.2-1.0 [facility] Laboratory - Specimen inform ationOrdered By: Geneva Jenkins on 01-20-2025 Appearance (U) CLEAR CLEAR [facility] Color (U) LT. YELLOW YELLOW [facility] - UrinalysisOrder ed By: Geneva Jenkins on 01-20-2025 Leukocyte esterase Test strip Ql (U) TRACE Abnormal NEGATIVE [facility] Mucus Ql (Urine sed) TRACE Abnormal NONE SEEN [facility] Nitrite Ql (U) Negative NEGATIVE [facility] Protein (U) [Mass/Vol] 167.6 mg/dL High <=11.9 [facility] Protein Ql (U) >=300 mg/dL Abnormal NEG/TRACE [facility] Leukocytes [#/volume] correc stacy for nucleated erythrocytes in Blood by Automated counOrdered By: Geneva Jenkins on 01-20-2025 WBC corrected for nucl RBC Auto (Bld) [#/Vol] 9.0 10 3/uL 4.0-11.0 [facility] MCH Auto (RBC) [Entitic mass ]Ordered By: Geneva Jenkins on 01-20-2025 MCH (RBC) [Entitic mass] 29.8 pg 26.7-34.0 [facility] MCHC Auto (RBC) [Mass/Vol]Or dered By: Geneva Jenkins on 01-20-2025 MCHC (RBC) [Mass/Vol] 34.0 g/dL 29.9-35.2 [facility] MCV Auto (RBC) [Entitic vol] Ordered By: Geneva Jenkins on 01-20-2025 MCV (RBC) [Entitic vol] 87.4 fL 81.0-99.0 [facility] No Panel InformationOrdered By: Geneva Jenkins on 01-20-2025 25-Hydroxy Vitamin D Total 46.0 ng/mL [facility] Comment on above: <20 ng/mL Vit D defi cient20-<30 ng/mL Vit D [id number] ng/mL Vit D sufficient>100 ng/mL Potential Toxicity Miscellaneous Test COMMENT . [facility] Comment on above: Test Ordered: [id number] FerritinFerritin 153 [H ] ng/mL Reference Range: 15-150Performed at: [facility] - [facility] [address] [id number] Director: Curry Rizzo PhD, Phone: [phone] Parathyroid Hormone (Intact) 58 pg/mL [facility] Comment on above: Performed at: [facility] [address] [id number] Director: Curry Rizzo PhD, Phone: [phone] Phosphorus Level 4.6 mg/dL 2.6-4.7 [facility] Urine Bacteria TRACE #/HPF Abnormal NONE SEEN [facility] Urine Occult Blood TRACE-I NEGATIVE [facility] Urine Other Casts NONE SEEN #/LPF NONE SEEN [facility] Urine Other Crystals None Seen #/HPF None Seen [facility] Urine Random Creatinine 30.76 mg/dL 20.00-300.0 0 [facility] Urine RBC 2-5 #/HPF Abnormal 0-2 [facility] Urine Squamous Epithelial Cells FEW #/LPF Abnormal NONE/RARE [facility] Urine WBC 0-2 #/HPF Abnormal NONE SEEN [facility] Platelet mean volume Auto (B ld) [Entitic vol]Ordered By: Geneva Jenkins on 01-20-2025 Platelet mean volume (Bld) [Entitic vol] 10.6 fL 9.5-13.5 [facility] Platelets Auto (Bld) [#/Vol] Ordered By: Geneva Jenkins on 01-20-2025 Platelets (Bld) [#/Vol] 177 10 3/uL 150-450 [facility] RBC Auto (Bld) [#/Vol]Ordere d By: Geneva Jenkins on 01-20-2025 RBC (Bld) [#/Vol] 3.73 10 6/uL Low 4.20-5.40 [facility] Serum or plasma anion gap de terminationOrdered By: Geneva Jenkins on 01-20-2025 Anion gap [Moles/Vol] 15.8 mmol/L [facility] Urine protein/creatinine rat ioOrdered By: Geneva Jenkins on 01-20-2025 Protein/Creatinine (U) [Ratio] 5.45 [facility] Perimetry studyon 11-26-2024 [facility] Radiology Study observation (narrative) [facility] 36on 11-06-2024 36 Regarding echo result from 10/04/2024: MD Michelle Tan MA Please tell her the echo showed normal cardiac function with evidence of extra fluid in the body. Depending on symptoms of shortness of breath, she can take extra 0.5 tablet of bumex on as needed basis. Follow up as planned. Patient informed. She verbalized understanding. Normal [facility] Office Visiton 09-16-2024 Follow-up visit [id number] Claudia Estrella 1950 F Date Provider Department Center 09/16/2024 KARTHIK MACKAY ADY Becca Galilea Family History Problem Relation Age of Onset Heart attack Mother Heart failure Mother Heart attack Father Family Status - Relation Status Age at Mother Father Level of Service:99038 UT OFFICE/OUTPATIENT ESTABLISHED MOD MDM 30 MIN Normal [facility] Erythrocyte distribution wid th Auto (RBC) [Ratio]on 08-26-2024 Erythrocyte distribution width (RBC) [Ratio] Erythrocyte distribution width [Ratio] by Automated count 11.0-15.0 [facility] Estimated glomerular filtrat ion rate (GFR) non- Americanon 08-26-2024 GFR/1.73 sq M.predicted among non-blacks MDRD (S/P/Bld) [Vol rate/Area] Estimated glomerular filtration rate (GFR) non- Low >=60 mL/min/1.73m 2 [facility] Hematocrit Auto (Bld) [Volum e fraction]on 08-26-2024 Hematocrit (Bld) [Volume fraction] Hematocrit [Volume Fraction] of Blood by Automated count Low 36.0-48.0 [facility] Hemoglobin [Mass/volume] in Bloodon 08-26-2024 Hemoglobin (Bld) [Mass/Vol] Hemoglobin [Mass/volume] in Blood Low 12.0-16.0 [facility] Iron binding capacity [Mass/ volume] in Serum or Plasmaon 08-26-2024 Iron binding capacity [Mass/Vol] Iron binding capacity [Mass/volume] in Serum or Plasma Low 250.0-450.0 [facility] Iron saturation [Mass Fracti on] in Serum or Plasmaon 08-26-2024 Iron saturation [Mass fraction] Iron saturation [Mass Fraction] in Serum or Plasma [facility] Laboratory - Chemistry and C hemistry - challengeon 08-26-2024 Albumin [Mass/Vol] 3.4 g/dL 3.4-5.0 [facility] Calcium [Mass/Vol] 9.3 mg/dL 8.5-10.1 [facility] Chloride [Moles/Vol] 100 mmol/L 98-107 [facility] CO2 [Moles/Vol] 28.1 mmol/L 21.0-32.0 [facility] Creatinine [Mass/Vol] 2.44 mg/dL High 0.55-1.02 [facility] Ferritin [Mass/Vol] 145.0 ng/mL 8.0-252.0 [facility] GFR/1.73 sq M.predicted MDRD (S/P/Bld) [Vol rate/Area] 24 mL/min/{1.73_m2} Low >=60 mL/min/1.73m 2 [facility] Glucose [Mass/Vol] 162 mg/dL High 74-106 [facility] Iron [Mass/Vol] 53.0 ug/dL 50.0-170.0 [facility] Magnesium [Mass/Vol] 2.0 mg/dL 1.8-2.4 [facility] Potassium [Moles/Vol] 3.2 mmol/L Low 3.5-5.1 [facility] Sodium [Moles/Vol] 140 mmol/L 136-145 [facility] Urate [Mass/Vol] 6.3 mg/dL High 2.6-6.0 [facility] Urea nitrogen [Mass/Vol] 46.0 mg/dL High 7.0-18.0 [facility] Urea nitrogen/Creatinine [Mass ratio] 18.9 mg/mg [facility] Laboratory - Urinalysison Protein (U) [Mass/Vol] 197.4 mg/dL High <=11.9 [facility] Leukocytes [#/volume] correc stacy for nucleated erythrocytes in Blood by Automated counon 08-26-2024 WBC corrected for nucl RBC Auto (Bld) [#/Vol] Leukocytes [#/volume] corrected for nucleated erythrocytes in Blood by Automated coun 4.0-11.0 [facility] MCH Auto (RBC) [Entitic mass ]on 08-26-2024 MCH (RBC) [Entitic mass] MCH [Entitic ma ss] by Automated count 26.7-34.0 [facility] MCHC Auto (RBC) [Mass/Vol]on 08-26-2024 MCHC (RBC) [Mass/Vol] MCHC [Mass/volume] by Automated count 29.9-35.2 [facility] MCV Auto (RBC) [Entitic vol] on 08-26-2024 MCV (RBC) [Entitic vol] MCV [Entitic vol ume] by Automated count 81.0-99.0 [facility] No Panel Informationon 08-26 25-Hydroxy Vitamin D Total 51.6 ng/mL [facility] Comment on above: <20 ng/mL Vit D defi cient20-<30 ng/mL Vit D -664 ng/mL Vit D sufficient>100 ng/mL Potential Toxicity Parathyroid Hormone (Intact) 78 pg/mL Abnormal 15-65 [facility] Comment on above: Performed at: [facility] [employer] [address] [id number] Director: Curry Rizzo PhD, Phone: [phone] Phosphorus Level 5.4 mg/dL High 2.6-4.7 [facility] Urine Random Creatinine 39.10 mg/dL 20.00-300.0 0 [facility] Platelet mean volume Auto (B ld) [Entitic vol]on 08-26-2024 Platelet mean volume (Bld) [Entitic vol] Platelet mean volume [Entitic volume] in Blood by Automated count 9.5-13.5 [facility] Platelets Auto (Bld) [#/Vol] on 08-26-2024 Platelets (Bld) [#/Vol] Platelets [#/vol ume] in Blood by Automated count 150-450 [facility] RBC Auto (Bld) [#/Vol]on RBC (Bld) [#/Vol] Erythrocytes [#/volume] in Blood by Automated count Low 4.20-5.40 [facility] Serum or plasma anion gap de terminationon 08-26-2024 Anion gap [Moles/Vol] Serum or plasma anion gap determination [facility] Urine protein/creatinine rat ioon 08-26-2024 Protein/Creatinine (U) [Ratio] Urine protein/creatinine ratio [facility] Ophthalmic OCT panelon 05-15 [facility] Right Eye Images reviewed and comparison [...] layer (NFL) thinning both eyes (OU). Stable. [facility] Radiology Study observation (narrative) [facility] Optical coherence tomography study reporton 05-15-2024 [facility] Radiology Study observation (narrative) [facility] Erythrocyte distribution wid th Auto (RBC) [Ratio]on 05-09-2024 Erythrocyte distribution width (RBC) [Ratio] Erythrocyte distribution width [Ratio] by Automated count High 11.0-15.0 [facility] Estimated glomerular filtrat ion rate (GFR) non- Americanon 05-09-2024 GFR/1.73 sq M.predicted among non-blacks MDRD (S/P/Bld) [Vol rate/Area] Estimated glomerular filtration rate (GFR) non- Low >=60 mL/min/1.73m 2 [facility] Hematocrit Auto (Bld) [Volum e fraction]on 05-09-2024 Hematocrit (Bld) [Volume fraction] Hematocrit [Volume Fraction] of Blood by Automated count Low 36.0-48.0 [facility] Hemoglobin [Mass/volume] in Bloodon 05-09-2024 Hemoglobin (Bld) [Mass/Vol] Hemoglobin [Mass/volume] in Blood Low 12.0-16.0 [facility] Iron binding capacity [Mass/ volume] in Serum or Plasmaon 05-09-2024 Iron binding capacity [Mass/Vol] Iron binding capacity [Mass/volume] in Serum or Plasma 250.0-450.0 [facility] Iron saturation [Mass Fracti on] in Serum or Plasmaon 05-09-2024 Iron saturation [Mass fraction] Iron saturation [Mass Fraction] in Serum or Plasma [facility] Laboratory - Chemistry and C hemistry - challengeon 05-09-2024 Albumin [Mass/Vol] 3.3 g/dL Low 3.4-5.0 [facility] Calcium [Mass/Vol] 9.2 mg/dL 8.5-10.1 [facility] Chloride [Moles/Vol] 103 mmol/L 98-107 [facility] CO2 [Moles/Vol] 25.9 mmol/L 21.0-32.0 [facility] Creatinine [Mass/Vol] 2.24 mg/dL High 0.55-1.02 [facility] Ferritin [Mass/Vol] 151.0 ng/mL 8.0-252.0 [facility] GFR/1.73 sq M.predicted MDRD (S/P/Bld) [Vol rate/Area] 26 mL/min/{1.73_m2} Low >=60 mL/min/1.73m 2 [facility] Glucose [Mass/Vol] 169 mg/dL High 74-106 [facility] Iron [Mass/Vol] 41.0 ug/dL Low 50.0-170.0 [facility] Magnesium [Mass/Vol] 2.0 mg/dL 1.8-2.4 [facility] Potassium [Moles/Vol] 3.6 mmol/L 3.5-5.1 [facility] Sodium [Moles/Vol] 141 mmol/L 136-145 [facility] Urate [Mass/Vol] 5.1 mg/dL 2.6-6.0 [facility] Urea nitrogen [Mass/Vol] 44.0 mg/dL High 7.0-18.0 [facility] Urea nitrogen/Creatinine [Mass ratio] 19.6 mg/mg [facility] Bilirubin Ql (U) Negative NEGATIVE [facility] Glucose (U) [Mass/Vol] Negative NEGATIVE [facility] Ketones Ql (U) Negative NEGATIVE [facility] pH (U) 5.5 [pH] 5.0-9.0 [facility] Specific gravity (U) [Rel density] 1.020 1.005-1.025 [facility] Urobilinogen Qn (U) 0.2 {Kelly'U}/dL 0.2-1.0 [facility] Laboratory - Specimen inform ationon 05-09-2024 Appearance (U) CLEAR CLEAR [facility] Color (U) LT. YELLOW YELLOW [facility] Laboratory - Urinalysison Hyaline casts LM Ql (Urine sed) RARE [facility] Leukocyte esterase Test strip Ql (U) MODERATE Abnormal NEGATIVE [facility] Mucus Ql (Urine sed) TRACE Abnormal NONE SEEN [facility] Nitrite Ql (U) Negative NEGATIVE [facility] Protein (U) [Mass/Vol] 122.0 mg/dL High <=11.9 [facility] Protein Ql (U) 100 mg/dL Abnormal NEG/TRACE [facility] Leukocytes [#/volume] correc stacy for nucleated erythrocytes in Blood by Automated counon 05-09-2024 WBC corrected for nucl RBC Auto (Bld) [#/Vol] Leukocytes [#/volume] corrected for nucleated erythrocytes in Blood by Automated coun 4.0-11.0 [facility] MCH Auto (RBC) [Entitic mass ]on 05-09-2024 MCH (RBC) [Entitic mass] MCH [Entitic ma ss] by Automated count 26.7-34.0 [facility] MCHC Auto (RBC) [Mass/Vol]on 05-09-2024 MCHC (RBC) [Mass/Vol] MCHC [Mass/volume] by Automated count 29.9-35.2 [facility] MCV Auto (RBC) [Entitic vol] on 05-09-2024 MCV (RBC) [Entitic vol] MCV [Entitic vol ume] by Automated count 81.0-99.0 [facility] No Panel Informationon 05-09 25-Hydroxy Vitamin D Total 56.3 ng/mL [facility] Comment on above: <20 ng/mL Vit D defi cient20-<30 ng/mL Vit D [id number] ng/mL Vit D sufficient>100 ng/mL Potential Toxicity Parathyroid Hormone (Intact) 9 pg/mL Abnormal 15-65 [facility] Comment on above: Performed at: [facility] [place] [facility] [id number] Director: Curry Rizzo PhD, Phone: [phone] Phosphorus Level 4.8 mg/dL High 2.6-4.7 [facility] Urine Bacteria SMALL #/HPF Abnormal NONE SEEN [facility] Urine Occult Blood Negative NEGATIVE [facility] Urine Other Casts SEEN #/LPF Abnormal NONE SEEN [facility] Urine Other Crystals None Seen #/HPF None Seen [facility] Urine Random Creatinine 62.86 mg/dL 20.00-300.0 0 [facility] Urine RBC 0-2 #/HPF 0-2 [facility] Urine Squamous Epithelial Cells MODERATE #/LPF Abnormal NONE/RARE [facility] Urine WBC 2-5 #/HPF Abnormal NONE SEEN [facility] Platelet mean volume Auto (B ld) [Entitic vol]on 05-09-2024 Platelet mean volume (Bld) [Entitic vol] Platelet mean volume [Entitic volume] in Blood by Automated count 9.5-13.5 [facility] Platelets Auto (Bld) [#/Vol] on 05-09-2024 Platelets (Bld) [#/Vol] Platelets [#/vol ume] in Blood by Automated count 150-450 [facility] RBC Auto (Bld) [#/Vol]on RBC (Bld) [#/Vol] Erythrocytes [#/volume] in Blood by Automated count Low 4.20-5.40 [facility] Serum or plasma anion gap de terminationon 05-09-2024 Anion gap [Moles/Vol] Serum or plasma anion gap determination [facility] Urine protein/creatinine rat ioon 05-09-2024 Protein/Creatinine (U) [Ratio] Urine protein/creatinine ratio [facility] Albumin [Mass/volume] in Ser um or Plasmaon 01-01-2024 Albumin [Mass/Vol] 3.5 g/dL 2.9-4.4 [facility] Erythrocyte distribution wid th Auto (RBC) [Ratio]on 01-01-2024 Erythrocyte distribution width (RBC) [Ratio] 15.2 % High 11.0-15.0 [facility] Estimated glomerular filtrat ion rate (GFR) non- Americanon 01-01-2024 GFR/1.73 sq M.predicted among non-blacks MDRD (S/P/Bld) [Vol rate/Area] 21 mL/min/{1.73_m2} Low >=60 [facility] Hematocrit Auto (Bld) [Volum e fraction]on 01-01-2024 Hematocrit (Bld) [Volume fraction] 32.4 % Low 36.0-48.0 [facility] Hemoglobin [Mass/volume] in Bloodon 01-01-2024 Hemoglobin (Bld) [Mass/Vol] 10.4 g/dL Low 12.0-16.0 [facility] IgA [Mass/volume] in Serum o r Plasmaon 01-01-2024 IgA [Mass/Vol] 580 mg/dL Abnormal 64-422 [facility] IgG [Mass/volume] in Serum o r Plasmaon 01-01-2024 IgG [Mass/Vol] 1132 mg/dL 586-1602 [facility] IgM [Mass/volume] in Serum o r Plasmaon 01-01-2024 IgM [Mass/Vol] 155 mg/dL 26-217 [facility] Immunofixation for Urineon 0 01-01-2024 Interpretation Immunofixation (U) [Interp] Comment . [facility] Comment on above: No monoclonality det ected.Performed at: [facility] [address] [id number] Director: Curry Rizzo PhD, Phone: [phone] Immunoglobulin light chains. kappa.free [Mass/volume] in Serumon 01-01-2024 Immunoglobulin light chains.kappa.free (S) [Mass/Vol] 75.5 mg/L Abnormal 3.3-19.4 [facility] Immunoglobulin light chains. kappa.free/Immunoglobulin light chains.lambda.free [Priscilla 01-01-2024 Immunoglobulin light chains.kappa.free/Immuno globulin light chains.lambda.free (S) [Mass ratio] 1.25 0.26-1.65 [facility] Comment on above: Performed at: [facility] [address] [id number] Director: Curry Rizzo PhD, Phone: [phone] Immunoglobulin light chains. lambda.free [Mass/volume] in Serum or Plasmaon 01-01-2024 Immunoglobulin light chains.lambda.free [Mass/Vol] 60.4 mg/L Abnormal 5.7-26.3 [facility] Iron binding capacity [Mass/ volume] in Serum or Plasmaon 01-01-2024 Iron binding capacity [Mass/Vol] 266.0 ug/dL 250.0-450.0 [facility] Iron saturation [Mass Fracti on] in Serum or Plasmaon 01-01-2024 Iron saturation [Mass fraction] 16.2 % [facility] - Chemistry and C hemistry - challengeon 01-01-2024 Albumin [Mass/Vol] 3.3 g/dL Low 3.4-5.0 [facility] Calcium [Mass/Vol] 9.2 mg/dL 8.5-10.1 [facility] Chloride [Moles/Vol] 103 mmol/L 98-107 [facility] CO2 [Moles/Vol] 27.3 mmol/L 21.0-32.0 [facility] Creatinine [Mass/Vol] 2.28 mg/dL High 0.55-1.02 [facility] Ferritin [Mass/Vol] 123.0 ng/mL 8.0-252.0 [facility] GFR/1.73 sq M.predicted MDRD (S/P/Bld) [Vol rate/Area] 26 mL/min/{1.73_m2} Low >=60 [facility] Glucose [Mass/Vol] 139 mg/dL High 74-106 [facility] Iron [Mass/Vol] 43.0 ug/dL Low 50.0-170.0 [facility] Magnesium [Mass/Vol] 2.3 mg/dL 1.8-2.4 [facility] Potassium [Moles/Vol] 4.4 mmol/L 3.5-5.1 [facility] Sodium [Moles/Vol] 138 mmol/L 136-145 [facility] Urate [Mass/Vol] 5.9 mg/dL 2.6-6.0 [facility] Urea nitrogen [Mass/Vol] 50.0 mg/dL High 7.0-18.0 [facility] Urea nitrogen/Creatinine [Mass ratio] 21.9 mg/mg [facility] - Urinalysison Protein (U) [Mass/Vol] 93.2 mg/dL High <=11.9 [facility] Leukocytes [#/volume] correc stacy for nucleated erythrocytes in Blood by Automated counon 01-01-2024 WBC corrected for nucl RBC Auto (Bld) [#/Vol] 8.9 10 3/uL 4.0-11.0 [facility] MCH Auto (RBC) [Entitic mass ]on 01-01-2024 MCH (RBC) [Entitic mass] 27.4 pg 26.7-34.0 [facility] MCHC Auto (RBC) [Mass/Vol]on 01-01-2024 MCHC (RBC) [Mass/Vol] 32.1 g/dL 29.9-35.2 [facility] MCV Auto (RBC) [Entitic vol] on 01-01-2024 MCV (RBC) [Entitic vol] 85.3 fL 81.0-99.0 [facility] No Panel Informationon 12-31 25-Hydroxy Vitamin D Total 53.8 ng/mL [facility] Comment on above: <20 ng/mL Vit D defi cient20-<30 ng/mL Vit D [id number] ng/mL Vit D sufficient>100 ng/mL Potential Toxicity Parathyroid Hormone (Intact) 95 pg/mL Abnormal 15-65 [facility] Comment on above: Performed at: - [address] [id number] Director: Curry Rizzo PhD, Phone: [phone] Phosphorus Level 4.0 mg/dL 2.6-4.7 [facility] Protein Electrophoresis M-Edward Not Observed g/dL Not Observed [facility] Protein Electrophoresis Note Comment . [facility] Comment on above: Protein electrophore sis scan will follow via computer,mail, or business development recruiter delivery. Urine Random Creatinine 88.24 mg/dL 20.00-300.0 0 [facility] Platelet mean volume Auto (B ld) [Entitic vol]on 01-01-2024 Platelet mean volume (Bld) [Entitic vol] 10.9 fL 9.5-13.5 [facility] Platelets Auto (Bld) [#/Vol] on 01-01-2024 Platelets (Bld) [#/Vol] 184 10 3/uL 150-450 [facility] Protein [Mass/volume] in Ser um or Plasmaon 01-01-2024 Protein [Mass/Vol] 7.0 g/dL 6.0-8.5 [facility] RBC Auto (Bld) [#/Vol]on RBC (Bld) [#/Vol] 3.80 10 6/uL Low 4.20-5.40 [facility] Serum globulin measurement ( mass/volume)on 01-01-2024 Globulin (S) [Mass/Vol] 3.5 g/dL 2.2-3.9 [facility] Serum or plasma albumin/glob ulin mass ratioon 01-01-2024 Albumin/Globulin [Mass ratio] 1.1 {ratio} 0.7-1.7 [facility] Serum or plasma alpha 1 glob ulin measurement by electrophoresis (mass/volume)on 01-01-2024 Alpha 1 globulin Elph [Mass/Vol] 0.3 g/dL 0.0-0.4 [facility] Serum or plasma alpha 2 glob ulin measurement by electrophoresis (mass/volume)on 01-01-2024 Alpha 2 globulin Elph [Mass/Vol] 0.9 g/dL 0.4-1.0 [facility] Serum or plasma anion gap de terminationon 01-01-2024 Anion gap [Moles/Vol] 12.1 mmol/L [facility] Serum or plasma beta globuli n measurement by electrophoresis (mass/volume)on 01-01-2024 Beta globulin Elph [Mass/Vol] 1.1 g/dL 0.7-1.3 [facility] Serum or plasma gamma globul in measurement by electrophoresis (mass/volume)on 01-01-2024 Gamma globulin Elph [Mass/Vol] 1.3 g/dL 0.4-1.8 [facility] Serum or plasma immunoelectr ophoresis interpretationon 01-01-2024 Interpretation IEP [Interp] Comment . [facility] Comment on above: No monoclonality det ected. Urine protein/creatinine rat ioon 01-01-2024 Protein/Creatinine (U) [Ratio] 1.06 [facility] BNPon 10-26-2022 Natriuretic peptide B (Bld) [Mass/Vol] 1458.0 pg/mL Critically high <=900.0 [facility] Comment on above: Performed By: #### L IPID, TSH, FT3 #### [facility] [address] [place] [address] Dr. Andrey Hargrove CBC AUTO DIFFon 10-26-2022 BASO # 0.1 103/ul Normal 0.0-0.1 [facility] Comment on above: Performed By: #### V ITAD, FETIBC, FERR #### [facility] [address] [place] [address] Dr. Andrey Hargrove Basophils/100 WBC (Bld) 0.7 % Normal 0.2-2.0 [facility] Comment on above: Performed By: #### V ITAD, FETIBC, FERR #### [facility] [address] [place] [address] Dr. Andrey Hargrove EO # 0.4 103/ul Normal 0.0-0.7 [facility] Comment on above: Performed By: #### V ITAD, FETIBC, FERR #### [facility] [address] [place] [address] Dr. Andrey Hargrove Eosinophils/100 WBC (Bld) 4.6 % Normal 0.9-7.0 [facility] Comment on above: Performed By: #### V ITAD, FETIBC, FERR #### [facility] [address] [place] [address] Dr. Andrey Hargrove Erythrocyte distribution width (RBC) [Ratio] 13.7 % Normal 11.0-15.0 [facility] Comment on above: Performed By: #### V ITAD, FETIBC, FERR #### [facility] [address] [place] [address] Dr. Andrey Hargrove Hematocrit (Bld) [Volume fraction] 35.5 % Critically low 36.0-48.0 [facility] Comment on above: Performed By: #### V ITAD, FETIBC, FERR #### [facility] [address] [place] [address] Dr. Andrey Hargrove Hemoglobin (Bld) [Mass/Vol] 12.0 g/dL Normal 12.0-16.0 [facility] Comment on above: Performed By: #### V ITAD, FETIBC, FERR #### [facility] [address] [place] [address] Dr. Andrey Hargrove IG # 0.02 10e3/ul Normal 0.00-0.03 [facility] Comment on above: Performed By: #### V ITAD, FETIBC, FERR #### [facility] [address] [place] [address] Dr. Andrey Hargrove IG % 0.2 % Normal 0.0-0.5 [facility] Comment on above: Performed By: #### V ITAD, FETIBC, FERR #### [facility] [address] [place] [address] Dr. Andrey Hargrove LYMPH # 1.5 103/ul Normal 1.2-3.[address] [facility] Comment on above: Performed By: #### V ITAD, FETIBC, FERR #### [facility] [address] [place] [address] Dr. Andrey Hargrove Lymphocytes/100 WBC (Bld) 18.1 % Critically low 20.5-60.0 [facility] Comment on above: Performed By: #### V ITAD, FETIBC, FERR #### [facility] [address] [place] [address] Dr. Andrey Hargrove MANUAL DIFF REQ NO Normal [facility] Comment on above: Performed By: #### V ITAD, FETIBC, FERR #### [facility] [address] [place] [address] Dr. Andrey Hargrove MCH (RBC) [Entitic mass] 29.3 pg Normal 26.7-34.0 [facility] Comment on above: Performed By: #### V ITAD, FETIBC, FERR #### [facility] [address] [place] [address] Dr. Andrey Hargrove MCHC (RBC) [Mass/Vol] 33.8 g/dL Normal 29.9-35.2 [facility] Comment on above: Performed By: #### V ITAD, FETIBC, FERR #### [facility] [address] [place] [address] Dr. Andrey Hargrove MCV (RBC) [Entitic vol] 86.8 fL Normal 81.0-99.0 [facility] Comment on above: Performed By: #### V ITAD, FETIBC, FERR #### [facility] [address] [place] [address] Dr. Andrey Hargrove MONO # 0.7 103/ul Normal 0.3-0.8 [facility] Comment on above: Performed By: #### V ITAD, FETIBC, FERR #### [facility] [address] [place] [address] Dr. Andrey Hargrove Monocytes/100 WBC (Bld) 7.9 % Normal 1.7-12.0 [facility] Comment on above: Performed By: #### V ITAD, FETIBC, FERR #### [facility] [address] [place] [address] Dr. Andrey Hargrove NEUT # 5.7 103/ul Normal 1.4-6.5 [facility] Comment on above: Performed By: #### V ITAD, FETIBC, FERR #### [facility] [address] [place] [address] Dr. Andrey Hargrove Neutrophils/100 WBC (Bld) 68.5 % Normal 43.0-75.0 [facility] Comment on above: Performed By: #### V ITAD, FETIBC, FERR #### [facility] [address] [place] [address] Dr. Andrey Hargrove Platelet mean volume (Bld) [Entitic vol] 10.4 fL Normal 9.5-13.5 [facility] Comment on above: Performed By: #### V ITAD, FETIBC, FERR #### [facility] [address] [place] [address] Dr. Andrey Hargrove PLT 204 103/ul Normal 150-450 [facility] Comment on above: Performed By: #### V ITAD, FETIBC, FERR #### [facility] [address] [address] [address] Andrey Hargrove RBC 4.09 106/ul Critically low 4.20-5.40 [facility] Comment on above: Performed By: #### V ITAD, FETIBC, FERR #### [facility] [address] [address] [address] Andrey Hargrove WBC 8.3 103/ul Normal 4.0-11.0 [facility] Comment on above: Performed By: #### V ITAD, FETIBC, FERR #### [facility] [address] [address] [address] Andrey Hargrove PROF CHEM 8 (BAS METB)on Anion gap [Moles/Vol] 11.1 mmol/L Normal [facility] Comment on above: Performed By: #### L IPID, TSH, FT3 #### [facility] [address] [address] [address] Andrey Hargrove Calcium [Mass/Vol] 9.2 mg/dL Normal 8.5-10.1 [facility] Comment on above: Performed By: #### L IPID, TSH, FT3 #### [facility] [address] [place] [address] Dr. Andrey Hargrove Chloride [Moles/Vol] 102 mmol/L Normal 98-107 [facility] Comment on above: Performed By: #### L IPID, TSH, FT3 #### [facility] [address] [place] [address] Dr. Andrey Hargrove CO2 [Moles/Vol] 31.2 mmol/L Normal 21.0-32.0 [facility] Comment on above: Performed By: #### L IPID, TSH, FT3 #### [facility] [address] [place] [address] Dr. Andrey Hargrove Creatinine [Mass/Vol] 1.79 mg/dL Critically high 0.55-1.02 [facility] Comment on above: Performed By: #### L IPID, TSH, FT3 #### [facility] [address] [address] [address] Andrey Hargrove EGFR-AF WALLISIAN 34 mL/min/1.73m2 Critically low >=60 [facility] Comment on above: Performed By: #### L IPID, TSH, FT3 #### [facility] [address] [place] [address] Dr. Andrey Hargrove EGFR-NON AF WALLISIAN 28 mL/min/1.73m2 Critically low >=60 [facility] Comment on above: Performed By: #### L IPID, TSH, FT3 #### [facility] [address] [place] [address] Dr. Andrey Hargrove Glucose [Mass/Vol] 148 mg/dL Critically high 74-106 [facility] Comment on above: Performed By: #### L IPID, TSH, FT3 #### [facility] [address] [place] [address] Dr. Andrey Hargrove Potassium [Moles/Vol] 3.3 mmol/L Critically low 3.5-5.1 [facility] Comment on above: Performed By: #### L IPID, TSH, FT3 #### [facility] [address] [place] [address] Dr. Andrey Hargrove Sodium [Moles/Vol] 141 mmol/L Normal 136-145 [facility] Comment on above: Performed By: #### L IPID, TSH, FT3 #### [facility] [address] [place] [address] Dr. Andrey Hargrove Urea nitrogen [Mass/Vol] 41.0 mg/dL Critically high 7.0-18 .0 [facility] Comment on above: Performed By: #### L IPID, TSH, FT3 #### [facility] [address] [place] [address] Dr. Andrey Hargrove Urea nitrogen/Creatinine [Mass ratio] 22.9 mg/mg Normal [facility] Comment on above: Performed By: #### L IPID, TSH, FT3 #### [facility] [address] [place] [address] Dr. Andrey Hargrove PTH INTACTon 08-24-2022 PTH, Intact 44 pg/mL Normal 15-[address] [facility] Comment on above: Performed By: #### V ITAD, FETIBC, FERR #### [facility] [address] [address] [address] Andrey Hargrove US THYROIDon 08-24-2022 US [...] RENETTA RENEE Date: 2022-08-24 16:[address] [facility] FERRITINon 08-23-2022 Ferritin [Mass/Vol] 114.0 ng/mL Normal 8.0-252.[address] [facility] Comment on above: Performed By: #### V ITAD, FETIBC, FERR #### [facility] [address] [id number] [address] Andrey Hargrove HEMOGRAM AND PLATELon 2022 Hematocrit (Bld) [Volume fraction] 34.9 % Critically low 36.0-48.0 [facility] Comment on above: Performed By: #### V ITAD, FETIBC, FERR #### [facility] [address] [place] [address] Dr. Andrey Hargrove Hemoglobin (Bld) [Mass/Vol] 11.8 g/dL Critically low 12.0-16.0 [facility] Comment on above: Performed By: #### V ITAD, FETIBC, FERR #### [facility] [address] [place] [address] Dr. Andrey Hargrove MCH (RBC) [Entitic mass] 28.6 pg Normal 26.7-34.0 [facility] Comment on above: Performed By: #### V ITAD, FETIBC, FERR #### [facility] [address] [place] [address] Dr. Andrey Hargrove MCHC (RBC) [Mass/Vol] 33.8 g/dL Normal 29.9-35.2 [facility] Comment on above: Performed By: #### V ITAD, FETIBC, FERR #### [facility] [address] [place] [address] Dr. Andrey Hargrove MCV (RBC) [Entitic vol] 84.7 fL Normal 81.0-99.0 [facility] Comment on above: Performed By: #### V ITAD, FETIBC, FERR #### [facility] [address] [place] [address] Dr. Andrey Hargrove PLT 215 103/ul Normal 150-[address] [facility] Comment on above: Performed By: #### V ITAD, FETIBC, FERR #### [facility] [address] [place] [address] Dr. Andrey Hargrove RBC 4.12 106/ul Critically low 4.20-5.40 [facility] Comment on above: Performed By: #### V ITAD, FETIBC, FERR #### [facility] [address] [place] [address] Dr. Andrey Hargrove WBC 9.2 103/ul Normal 4.0-11.0 [facility] Comment on above: Performed By: #### V ITAD, FETIBC, FERR #### [facility] [address] [place] [address] Dr. Andrey Hargrove IRON AND TIBCon 08-23-2022 % SATURATION 15.4 % Normal [facility] Comment on above: Performed By: #### V ITAD, FETIBC, FERR #### [facility] [address] [place] [address] Dr. Andrey Hargrove Iron [Mass/Vol] 44.0 ug/dL Critically low 50.0-170.0 [facility] Comment on above: Performed By: #### V ITAD, FETIBC, FERR #### [facility] [address] [place] [address] Dr. Andrey Hargrove TIBC DIRECT 286.0 ug/dL Normal 250.0-450.0 [facility] Comment on above: Performed By: #### V ITAD, FETIBC, FERR #### [facility] [address] [place] [address] Dr. Andrey Hargrove MAGNESIUMon 08-23-2022 Magnesium [Mass/Vol] 2.1 mg/dL Normal 1.8-2.4 [facility] Comment on above: Performed By: #### L IPID, TSH, FT3 #### [facility] [address] [place] [address] Dr. Andrey Hargrove RENAL FUNCTION PANELon 08-23 Albumin [Mass/Vol] 3.3 g/dL Critically low 3.4-5.0 [facility] Comment on above: Performed By: #### L IPID, TSH, FT3 #### [facility] [address] [place] [address] Dr. Andrey Hargrove Calcium [Mass/Vol] 9.4 mg/dL Normal 8.5-10.1 [facility] Comment on above: Performed By: #### L IPID, TSH, FT3 #### [facility] [address] [place] [address] Dr. Andrey Hargrove Chloride [Moles/Vol] 103 mmol/L Normal 98-107 [facility] Comment on above: Performed By: #### L IPID, TSH, FT3 #### [facility] [address] [place] [address] Dr. Andrey Hargrove CO2 [Moles/Vol] 26.8 mmol/L Normal 21.0-32.0 [facility] Comment on above: Performed By: #### L IPID, TSH, FT3 #### [facility] [address] [address] [address] Andrey Hargrove Creatinine [Mass/Vol] 1.94 mg/dL Critically high 0.55-1.02 [facility] Comment on above: Performed By: #### L IPID, TSH, FT3 #### [facility] [address] [address] [address] Andrey Hargrove EGFR-AF WALLISIAN 31 mL/min/1.73m2 Critically low >=60 [facility] Comment on above: Performed By: #### L IPID, TSH, FT3 #### [facility] [address] [place] [address] Dr. Andrey Hargrove EGFR-NON AF WALLISIAN 25 mL/min/1.73m2 Critically low >=60 [facility] Comment on above: Performed By: #### L IPID, TSH, FT3 #### [facility] [address] [address] [address] Andrey Hargrove Glucose [Mass/Vol] 166 mg/dL Critically high 74-106 [facility] Comment on above: Performed By: #### L IPID, TSH, FT3 #### [facility] [address] [address] [address] Andrey Hargrove Phosphate [Mass/Vol] 4.6 mg/dL Normal 2.6-4.7 [facility] Comment on above: Performed By: #### L IPID, TSH, FT3 #### [facility] [address] [address] [address] Andrey Hargrove Potassium [Moles/Vol] 4.3 mmol/L Normal 3.5-5.[address] [facility] Comment on above: Performed By: #### L IPID, TSH, FT3 #### [facility] [address] [address] [address] Andrey Hargrove Sodium [Moles/Vol] 137 mmol/L Normal 136-145 [facility] Comment on above: Performed By: #### L IPID, TSH, FT3 #### [facility] [address] [place] [address] Dr. Andrey Hargrove Urea nitrogen [Mass/Vol] 39.0 mg/dL Critically high 7.0-18 .0 [facility] Comment on above: Performed By: #### L IPID, TSH, FT3 #### [facility] [address] [place] [address] Dr. Andrey Hargrove UA RANDOM W/MICROSCOPICon BACTERIA NONE SEEN Normal NONE SEEN [facility] Comment on above: Performed By: #### V ITAD, FETIBC, FERR #### [facility] [address] [place] [address] Dr. Andrey Hargrove Bilirubin Ql (U) Negative Normal NEGATIVE [facility] Comment on above: Performed By: #### V ITAD, FETIBC, FERR #### [facility] [address] [place] [address] Dr. Andrey Hargrove CAST NONE SEEN Normal NONE SEEN [facility] Comment on above: Performed By: #### V ITAD, FETIBC, FERR #### [facility] [address] [place] [address] Dr. Andrey Hargrove Clarity (U) CLEAR Normal CLEAR [facility] Comment on above: Performed By: #### V ITAD, FETIBC, FERR #### [facility] [address] [place] [address] Dr. Andrey Hargrove Color (U) LT. YELLOW Normal YELLOW [facility] Comment on above: Performed By: #### V ITAD, FETIBC, FERR #### [facility] [address] [place] [address] Dr. Andrey Hargrove Crystals LM Nom (Urine sed) NONE SEEN Normal NONE SEEN [facility] Comment on above: Performed By: #### V ITAD, FETIBC, FERR #### [facility] [address] [place] [address] Dr. Andrey Hargrove Epithelial cells LM Ql (Urine sed) RARE Normal NONE SEEN /RARE [facility] Comment on above: Performed By: #### V ITAD, FETIBC, FERR #### [facility] [address] [address] [address] Andrey Hargrove Glucose Ql (U) Negative Normal NEGATIVE [facility] Comment on above: Performed By: #### V ITAD, FETIBC, FERR #### [facility] [address] [address] [address] Andrey Hargrove Hemoglobin Ql (U) Negative Normal NEGATIVE [facility] Comment on above: Performed By: #### V ITAD, FETIBC, FERR #### [facility] [address] [address] [address] Andrey Hargrove Ketones Ql (U) Negative Normal NEGATIVE [facility] Comment on above: Performed By: #### V ITAD, FETIBC, FERR #### [facility] [address] [place] [address] Dr. Andrey Hargrove LEUKOCYTES Negative Normal NEGATIVE [facility] Comment on above: Performed By: #### V ITAD, FETIBC, FERR #### [facility] [address] [address] [address] Andrey Hargrove MUCOUS NONE SEEN Normal NONE SEEN [facility] Comment on above: Performed By: #### V ITAD, FETIBC, FERR #### [facility] [address] [address] [address] Andrey Hargrove Nitrite Ql (U) Negative Normal NEGATIVE [facility] Comment on above: Performed By: #### V ITAD, FETIBC, FERR #### [facility] [address] [address] [address] Andrey Hargrove pH (U) 6.5 [pH] Normal 5-[address] [facility] Comment on above: Performed By: #### V ITAD, FETIBC, FERR #### [facility] [address] [place] [address] Dr. Andrey Hargrove RBC NONE SEEN Abnormal 0-[address] [facility] Comment on above: Performed By: #### V ITAD, FETIBC, FERR #### [facility] [address] [place] [address] Dr. Andrey Hargrove SPEC GRAVITY 1.010 Normal 1.005-<=1.[address] [facility] Comment on above: Performed By: #### V ITAD, FETIBC, FERR #### [facility] [address] [place] [address] Dr. Andrey Hargrove UA PROTEIN 30 mg/dl Abnormal NEGATIVE/ TRACE [facility] Comment on above: Performed By: #### V ITAD, FETIBC, FERR #### [facility] [address] [place] [address] Dr. Andrey Hargrove Urobilinogen Qn (U) 0.2 {Kelly'U}/dL Normal 0.2 - 1. [address] [facility] Comment on above: Performed By: #### V ITAD, FETIBC, FERR #### [facility] [address] [place] [address] Dr. Andrey Hargrove WBC NONE SEEN Normal NONE SEEN [facility] Comment on above: Performed By: #### V ITAD, FETIBC, FERR #### [facility] [address] [place] [address] Dr. Andrey Hargrove URIC ACID SERUMon 08-23-2022 Urate [Mass/Vol] 5.8 mg/dL Normal 2.6-6.0 [facility] Comment on above: Performed By: #### L IPID, TSH, FT3 #### [facility] [address] [place] [address] Dr. Andrey Hargrove VITAMIN D 25 OHon 08-23-2022 VIT D 25-OH 69.0 ng/mL Normal [facility] Comment on above: Performed By: #### V ITAD, FETIBC, FERR #### [facility] [address] [place] [address] Dr. Andrey Hargrove VIT D RANGES SEE BELOW Normal [facility] Comment on above: Result Comment: <20 ng/mL Vit D deficient 20 - <30 ng/mL Vit D insufficient 30 - 100 ng/mL Vit D sufficient >100 ng/mL Potential Toxicity Performed By: #### V ITAD, FETIBC, FERR #### [facility] [id number] Andrey Hargrove ECHOCARDIO M/2D COMPLETEon 1 08-14-2021 ECHOCARDIO M/2D COMPLETE Patient: CLAUDIA ESTRELLA Exam Date: 06/13/2022 : 1950 Gender:F Ordering : DR KARTHIK FISH M.D. Admission #: [id number] Family : Order #: [id number] CLICK HERE TO VIEW EXAM ECHOCARDIOGRAM REPORT [...] Fish M.D. on 06/14/2022 at 17:50 Normal [facility] BNPon 06-10-2022 Natriuretic peptide B (Bld) [Mass/Vol] 4197.0 pg/mL Critically high <=900.[address] [facility] Comment on above: Performed By: #### L IPID, TSH, FT3 #### [facility] [address] [place] [address] Dr. Andrey Hargrove PROF CHEM 8 (BAS METB)on Anion gap [Moles/Vol] 10.4 mmol/L Normal [facility] Comment on above: Performed By: #### V ITAD, FETIBC, FERR #### [facility] [address] [place] [address] Dr. Andrey Hargrove Calcium [Mass/Vol] 9.4 mg/dL Normal 8.5-10.1 [facility] Comment on above: Performed By: #### V ITAD, FETIBC, FERR #### [facility] [address] [place] [address] Dr. Andrey Hargrove Chloride [Moles/Vol] 99 mmol/L Normal 98-107 [facility] Comment on above: Performed By: #### V ITAD, FETIBC, FERR #### [facility] [address] [place] [address] Dr. Andrey Hargrove CO2 [Moles/Vol] 33.8 mmol/L Critically high 21.0-32.0 [facility] Comment on above: Performed By: #### V ITAD, FETIBC, FERR #### [facility] [address] [place] [address] Dr. Andrey Hargrove Creatinine [Mass/Vol] 2.09 mg/dL Critically high 0.55-1.02 [facility] Comment on above: Performed By: #### V ITAD, FETIBC, FERR #### [facility] [address] [place] [address] Dr. Andrey Hargrove EGFR-AF WALLISIAN 28 mL/min/1.73m2 Critically low >=60 [facility] Comment on above: Performed By: #### V ITAD, FETIBC, FERR #### [facility] [address] [place] [address] Dr. Andrey Hargrove EGFR-NON AF WALLISIAN 23 mL/min/1.73m2 Critically low >=60 [facility] Comment on above: Performed By: #### V ITAD, FETIBC, FERR #### [facility] [address] [place] [address] Dr. Andrey Hargrove Glucose [Mass/Vol] 75 mg/dL Normal 74-106 [facility] Comment on above: Performed By: #### V ITAD, FETIBC, FERR #### [facility] [address] [place] [address] Dr. Andrey Hargrove Potassium [Moles/Vol] 3.2 mmol/L Critically low 3.5-5.1 [facility] Comment on above: Performed By: #### V ITAD, FETIBC, FERR #### [facility] [address] [place] [address] Dr. Andrey Hargrove Sodium [Moles/Vol] 140 mmol/L Normal 136-145 [facility] Comment on above: Performed By: #### V ITAD, FETIBC, FERR #### [facility] [address] [place] [address] Dr. Andrey Hargrove Urea nitrogen [Mass/Vol] 61.0 mg/dL Critically high 7.0-18 .0 [facility] Comment on above: Performed By: #### V ITAD, FETIBC, FERR #### [facility] [address] [place] [address] Dr. Andrey Hargrove Urea nitrogen/Creatinine [Mass ratio] 29.2 mg/mg Normal [facility] Comment on above: Performed By: #### V ITAD, FETIBC, FERR #### [facility] [address] [place] [address] Dr. Andrey Hargrove BNPon 06-02-2022 Natriuretic peptide B (Bld) [Mass/Vol] 9365.0 pg/mL Critically high <=900.0 [facility] Comment on above: Performed By: #### V ITAD, FETIBC, FERR #### [facility] [address] [place] [address] Dr. Andrey Hargrove PROF CHEM 8 (BAS METB)on Anion gap [Moles/Vol] 10.7 mmol/L Normal [facility] Comment on above: Performed By: #### V ITAD, FETIBC, FERR #### [facility] [address] [address] [address] Andrey Hargrove Calcium [Mass/Vol] 9.1 mg/dL Normal 8.5-10.1 [facility] Comment on above: Performed By: #### V ITAD, FETIBC, FERR #### [facility] [address] [place] [address] Dr. Andrey Hargrove Chloride [Moles/Vol] 98 mmol/L Normal 98-107 [facility] Comment on above: Performed By: #### V ITAD, FETIBC, FERR #### [facility] [address] [place] [address] Dr. Andrey Hargrove CO2 [Moles/Vol] 29.4 mmol/L Normal 21.0-32.0 [facility] Comment on above: Performed By: #### V ITAD, FETIBC, FERR #### [facility] [address] [place] [address] Dr. Andrey Hargrove Creatinine [Mass/Vol] 2.44 mg/dL Critically high 0.55-1.02 [facility] Comment on above: Performed By: #### V ITAD, FETIBC, FERR #### [facility] [address] [place] [address] Dr. Andrey Hargrove EGFR-AF WALLISIAN 24 mL/min/1.73m2 Critically low >=60 [facility] Comment on above: Performed By: #### V ITAD, FETIBC, FERR #### [facility] [address] [place] [address] Dr. Andrey Hargrove EGFR-NON AF WALLISIAN 20 mL/min/1.73m2 Critically low >=60 [facility] Comment on above: Performed By: #### V ITAD, FETIBC, FERR #### [facility] [address] [place] [address] Dr. Andrey Hargrove Glucose [Mass/Vol] 135 mg/dL Critically high 74-106 [facility] Comment on above: Performed By: #### V ITAD, FETIBC, FERR #### [facility] [address] [address] [address] Andrey Hargrove Potassium [Moles/Vol] 4.1 mmol/L Normal 3.5-5.1 [facility] Comment on above: Performed By: #### V ITAD, FETIBC, FERR #### [facility] [address] [address] [address] Andrey Hargrove Sodium [Moles/Vol] 134 mmol/L Critically low 136-145 [facility] Comment on above: Performed By: #### V ITAD, FETIBC, FERR #### [facility] [address] [address] [address] Andrey Hargrove Urea nitrogen [Mass/Vol] 81.0 mg/dL Critically high 7.0-18 .0 [facility] Comment on above: Performed By: #### V ITAD, FETIBC, FERR #### [facility] [address] [place] [address] Dr. Andrey Hargrove Urea nitrogen/Creatinine [Mass ratio] 33.2 mg/mg Normal [facility] Comment on above: Performed By: #### V ITAD, FETIBC, FERR #### [facility] [address] [place] [address] Dr. Andrey Hargrove XR ELBOW RT MIN [...] BETSY LAZARO Date: 2022-06-01 17:[address] [facility] RENAL FUNCTION PANELon 05-27 Albumin [Mass/Vol] 3.4 g/dL Normal 3.4-5.0 [facility] Comment on above: Performed By: #### L IPID, TSH, FT3 #### [facility] [address] [address] [address] Andrey Hargrove Calcium [Mass/Vol] 9.1 mg/dL Normal 8.5-10.1 [facility] Comment on above: Performed By: #### L IPID, TSH, FT3 #### [facility] [address] [address] [address] Andrey Hargrove Chloride [Moles/Vol] 99 mmol/L Normal 98-[address] [facility] Comment on above: Performed By: #### L IPID, TSH, FT3 #### [facility] [address] [address] [address] Andrey Hargrove CO2 [Moles/Vol] 30.9 mmol/L Normal 21.0-32.0 [facility] Comment on above: Performed By: #### L IPID, TSH, FT3 #### [facility] [address] [place] [address] Dr. Andrey Hargrove Creatinine [Mass/Vol] 2.24 mg/dL Critically high 0.55-1.[address] [facility] Comment on above: Performed By: #### L IPID, TSH, FT3 #### [facility] [address] [address] [address] Andrey Hargrove EGFR-AF WALLISIAN 26 mL/min/1.73m2 Critically low >=[address] [facility] Comment on above: Performed By: #### L IPID, TSH, FT3 #### [facility] [address] [place] [address] Dr. Andrey Hargrove EGFR-NON AF WALLISIAN 22 mL/min/1.73m2 Critically low >=[address] [facility] Comment on above: Performed By: #### L IPID, TSH, FT3 #### [facility] [address] [place] [address] Dr. Andrey Hargrove Glucose [Mass/Vol] 94 mg/dL Normal 74-106 [facility] Comment on above: Performed By: #### L IPID, TSH, FT3 #### [facility] [address] [place] [address] Dr. Andrey Hargrove Phosphate [Mass/Vol] 4.7 mg/dL Normal 2.6-4.7 [facility] Comment on above: Performed By: #### L IPID, TSH, FT3 #### [facility] [address] [place] [address] Dr. Andrey Hargrove Potassium [Moles/Vol] 3.5 mmol/L Normal 3.5-5.1 [facility] Comment on above: Performed By: #### L IPID, TSH, FT3 #### [facility] [address] [place] [address] Dr. Andrey Hargrove Sodium [Moles/Vol] 136 mmol/L Normal 136-145 [facility] Comment on above: Performed By: #### L IPID, TSH, FT3 #### [facility] [address] [place] [address] Dr. Andrey Hargrove Urea nitrogen [Mass/Vol] 72.0 mg/dL Critically high 7.0-18 .0 [facility] Comment on above: Performed By: #### L IPID, TSH, FT3 #### [facility] [address] [place] [address] Dr. Andrey Hargrove PTH INTACTon 05-24-2022 PTH, Intact 24 pg/mL Normal 15-65 [facility] Comment on above: Performed By: #### L IPID, TSH, FT3 #### [facility] [address] [place] [address] Dr. Andrey Hargrove FERRITINon 05-23-2022 Ferritin [Mass/Vol] 190.0 ng/mL Normal 8.0-252.0 [facility] Comment on above: Performed By: #### L IPID, TSH, FT3 #### [facility] [address] [place] [address] Dr. Andrey Hargrove FREE T3on 05-23-2022 FREE T3 1.96 pg/mlL Critically low 2.18-3.98 [facility] Comment on above: Performed By: #### L IPID, TSH, FT3 #### [facility] [address] [place] [address] Dr. Andrey Hargrove FREE T4on 05-23-2022 Free T4 [Mass/Vol] 1.33 ng/dL Normal 0.76-1.46 [facility] Comment on above: Performed By: #### L IPID, TSH, FT3 #### [facility] [address] [place] [address] Dr. Andrey Hargrove HEMOGRAM AND PLATELon 2021 Hematocrit (Bld) [Volume fraction] 30.6 % Critically low 36.0-48.0 [facility] Comment on above: Performed By: #### V ITAD, FETIBC, FERR #### [facility] [address] [place] [address] Dr. Andrey Hargrove Hemoglobin (Bld) [Mass/Vol] 10.4 g/dL Critically low 12.0-16.0 [facility] Comment on above: Performed By: #### V ITAD, FETIBC, FERR #### [facility] [address] [place] [address] Dr. Andrey Hargrove MCH (RBC) [Entitic mass] 28.6 pg Normal 26.7-34.0 [facility] Comment on above: Performed By: #### V ITAD, FETIBC, FERR #### [facility] [address] [place] [address] Dr. Andrey Hargrove MCHC (RBC) [Mass/Vol] 34.0 g/dL Normal 29.9-35.2 [facility] Comment on above: Performed By: #### V ITAD, FETIBC, FERR #### [facility] [address] [place] [address] Dr. Andrey Hargrove MCV (RBC) [Entitic vol] 84.1 fL Normal 81.0-99.0 [facility] Comment on above: Performed By: #### V ITAD, FETIBC, FERR #### [facility] [address] [address] [address] Andrey Hargrove PLT 179 103/ul Normal 150-450 [facility] Comment on above: Performed By: #### V ITAD, FETIBC, FERR #### [facility] [address] [address] [address] Andrey Hargrove RBC 3.64 106/ul Critically low 4.20-5.40 [facility] Comment on above: Performed By: #### V ITAD, FETIBC, FERR #### [facility] [address] [address] [address] Andrey Hargrove WBC 9.5 103/ul Normal 4.0-11.0 [facility] Comment on above: Performed By: #### V ITAD, FETIBC, FERR #### [facility] [address] [place] [address] Dr. Andrey Hargrove IRON AND TIBCon 05-23-2022 % SATURATION 15.9 % Normal [facility] Comment on above: Performed By: #### L IPID, TSH, FT3 #### [facility] [address] [place] [address] Dr. Andrey Hargrove Iron [Mass/Vol] 44.0 ug/dL Critically low 50.0-170.0 [facility] Comment on above: Performed By: #### L IPID, TSH, FT3 #### [facility] [address] [place] [address] Dr. Andrey Hargrove TIBC DIRECT 276.0 ug/dL Normal 250.0-450.0 [facility] Comment on above: Performed By: #### L IPID, TSH, FT3 #### [facility] [address] [place] [address] Dr. Andrey Hargrove LIPID PROFILEon 05-23-2022 CHOL-HDL RATIO NORM SEE BELOW Normal [facility] Comment on above: Result Comment: 3.3 - 4.4 LOW RISK 4.4 - 7.1 AVERAGE RISK 7.1 - 11.0 MODERATE RISK >11.0 HIGH RISK Performed By: #### L IPID, TSH, FT3 #### [facility] [address] [address] [address] Andrey Hargrove Cholesterol [Mass/Vol] 129 mg/dL Normal <=200 [facility] Comment on above: Performed By: #### L IPID, TSH, FT3 #### [facility] [address] [place] [address] Dr. Andrey Hargrove Cholesterol in HDL [Mass/Vol] 55 mg/dL Normal 40-60 [facility] Comment on above: Performed By: #### L IPID, TSH, FT3 #### [facility] [address] [place] [address] Dr. Andrey Hargrove Cholesterol in LDL [Mass/Vol] 59.6 mg/dL Normal [facility] Comment on above: Performed By: #### L IPID, TSH, FT3 #### [facility] [address] [place] [address] Dr. Andrey Hargrove Cholesterol.total/Choles terol in HDL [Mass ratio] 2.3 {ratio} Normal [facility] Comment on above: Performed By: #### L IPID, TSH, FT3 #### [facility] [address] [place] [address] Dr. Andrey Hargrove HDL NORMAL > or = 60 mg/dl - LOW CARDIOVASCULAR RISK <40 mg/dl - HIGH CARDIOVASCULAR RISK Normal [facility] Comment on above: Performed By: #### L IPID, TSH, FT3 #### [facility] [address] [place] [address] Dr. Andrey Hargrove LDL CALC NORMAL SEE BELOW Normal [facility] Comment on above: Result Comment: <100 mg/dl OPTIMAL 100 - 129 mg/dl NEAR OR ABOVE OPTIMAL 130 - 159 mg/dl BORDERLINE HIGH 160 - 189 mg/dl HIGH >190 mg/dl VERY HIGH Performed By: #### L IPID, TSH, FT3 #### [facility] [address] [place] [address] Dr. Andrey Hargrove Triglyceride [Mass/Vol] 72 mg/dL Normal <=150 [facility] Comment on above: Performed By: #### L IPID, TSH, FT3 #### [facility] [address] [address] [address] Andrey Hargrove VLDL CALC 14.4 mg/dL Normal [facility] Comment on above: Performed By: #### L IPID, TSH, FT3 #### [facility] [address] [place] [address] Dr. Andrey Hargrove MAGNESIUMon 05-23-2022 Magnesium [Mass/Vol] 2.2 mg/dL Normal 1.8-2.4 [facility] Comment on above: Performed By: #### L IPID, TSH, FT3 #### [facility] [address] [place] [address] Dr. Andrey Hargrove RENAL FUNCTION PANELon 05-23 Albumin [Mass/Vol] 3.5 g/dL Normal 3.4-5.0 [facility] Comment on above: Performed By: #### L IPID, TSH, FT3 #### [facility] [address] [place] [address] Dr. Andrey Hargrove Calcium [Mass/Vol] 10.0 mg/dL Normal 8.5-10.1 [facility] Comment on above: Performed By: #### L IPID, TSH, FT3 #### [facility] [address] [place] [address] Dr. Andrey Hargrove Chloride [Moles/Vol] 98 mmol/L Normal 98-[address] [facility] Comment on above: Performed By: #### L IPID, TSH, FT3 #### [facility] [address] [place] [address] Dr. Andrey Hargrove CO2 [Moles/Vol] 34.3 mmol/L Critically high 21.0-32.[address] [facility] Comment on above: Performed By: #### L IPID, TSH, FT3 #### [facility] [address] [place] [address] Dr. Andrey Hargrove Creatinine [Mass/Vol] 2.24 mg/dL Critically high 0.55-1.02 [facility] Comment on above: Performed By: #### L IPID, TSH, FT3 #### [facility] [address] [place] [address] Dr. Andrey Hargrove EGFR-AF WALLISIAN 26 mL/min/1.73m2 Critically low >=60 [facility] Comment on above: Performed By: #### L IPID, TSH, FT3 #### [facility] [address] [place] [address] Dr. Andrey Hargrove EGFR-NON AF WALLISIAN 22 mL/min/1.73m2 Critically low >=60 [facility] Comment on above: Performed By: #### L IPID, TSH, FT3 #### [facility] [address] [place] [address] Dr. Andrey Hargrove Glucose [Mass/Vol] 123 mg/dL Critically high 74-106 [facility] Comment on above: Performed By: #### L IPID, TSH, FT3 #### [facility] [address] [place] [address] Dr. Andrey Hargrove Phosphate [Mass/Vol] 5.2 mg/dL Critically high 2.6-4.7 [facility] Comment on above: Performed By: #### L IPID, TSH, FT3 #### [facility] [address] [place] [address] Dr. Andrey Hargrove Potassium [Moles/Vol] 3.0 mmol/L Critically low 3.5-5.1 [facility] Comment on above: Performed By: #### L IPID, TSH, FT3 #### [facility] [address] [address] [address] Andrey Hargrove Sodium [Moles/Vol] 137 mmol/L Normal 136-145 [facility] Comment on above: Performed By: #### L IPID, TSH, FT3 #### [facility] [address] [place] [address] Dr. Andrey Hargrove Urea nitrogen [Mass/Vol] 80.0 mg/dL Critically high 7.0-18 .0 [facility] Comment on above: Performed By: #### L IPID, TSH, FT3 #### [facility] [address] [place] [address] Dr. Andrey Hargrove TSHon 05-23-2022 TSH 4.652 uIU/mL Critically high 0.358-3.740 [facility] Comment on above: Performed By: #### L IPID, TSH, FT3 #### [facility] [address] [place] [address] Dr. Andrey Hargrove UA RANDOM W/MICROSCOPICon BACTERIA NONE SEEN Normal NONE SEEN [facility] Comment on above: Performed By: #### V ITAD, FETIBC, FERR #### [facility] [address] [place] [address] Dr. Andrey Hargrove Bilirubin Ql (U) Negative Normal NEGATIVE [facility] Comment on above: Performed By: #### V ITAD, FETIBC, FERR #### [facility] [address] [place] [address] Dr. Andrey Hargrove CAST NONE SEEN Normal NONE SEEN [facility] Comment on above: Performed By: #### V ITAD, FETIBC, FERR #### [facility] [address] [place] [address] Dr. Andrey Hargrove Clarity (U) CLEAR Normal CLEAR [facility] Comment on above: Performed By: #### V ITAD, FETIBC, FERR #### [facility] [address] [place] [address] Dr. Andrey Hargrove Color (U) LT. YELLOW Normal YELLOW [facility] Comment on above: Performed By: #### V ITAD, FETIBC, FERR #### [facility] [address] [place] [address] Dr. Andrey Hargrove Crystals LM Nom (Urine sed) NONE SEEN Normal NONE SEEN [facility] Comment on above: Performed By: #### V ITAD, FETIBC, FERR #### [facility] [address] [place] [address] Dr. Andrey Hargrove Epithelial cells LM Ql (Urine sed) FEW Abnormal NONE SEEN /RARE [facility] Comment on above: Performed By: #### V ITAD, FETIBC, FERR #### [facility] [address] [place] [address] Dr. Andrey Hargrove Glucose Ql (U) Negative Normal NEGATIVE [facility] Comment on above: Performed By: #### V ITAD, FETIBC, FERR #### [facility] [address] [address] [address] Andrey Hargrove Hemoglobin Ql (U) TRACE-INTACT Abnormal NEGATIVE [facility] Comment on above: Performed By: #### V ITAD, FETIBC, FERR #### [facility] [address] [address] [address] Andrey Hargrove Ketones Ql (U) Negative Normal NEGATIVE [facility] Comment on above: Performed By: #### V ITAD, FETIBC, FERR #### [facility] [address] [place] [address] Dr. Andrey Hargrove LEUKOCYTES SMALL Abnormal NEGATIVE [facility] Comment on above: Performed By: #### V ITAD, FETIBC, FERR #### [facility] [address] [place] [address] Dr. Andrey Hargrove MUCOUS NONE SEEN Normal NONE SEEN [facility] Comment on above: Performed By: #### V ITAD, FETIBC, FERR #### [facility] [address] [place] [address] Dr. Andrey Hargrove Nitrite Ql (U) Negative Normal NEGATIVE [facility] Comment on above: Performed By: #### V ITAD, FETIBC, FERR #### [facility] [address] [place] [address] Dr. Andrey Hargrove pH (U) 5.5 [pH] Normal 5-9 [facility] Comment on above: Performed By: #### V ITAD, FETIBC, FERR #### [facility] [address] [place] [address] Dr. Andrey Hargrove RBC 0-2 Normal 0-2 [facility] Comment on above: Performed By: #### V ITAD, FETIBC, FERR #### [facility] [address] [place] [address] Dr. Andrey Hargrove SPEC GRAVITY 1.010 Normal 1.005-<=1.[address] [place] [address] Comment on above: Performed By: #### V ITAD, FETIBC, FERR #### [facility] [address] [place] [address] Dr. Andrey Hargrove UA PROTEIN TRACE Normal NEGATIVE/ TRACE [facility] Comment on above: Performed By: #### V ITAD, FETIBC, FERR #### [facility] [address] [place] [address] Dr. Andrey Hargrove Urobilinogen Qn (U) 0.2 {Kelly'U}/dL Normal 0.2 - 1. 0 [facility] Comment on above: Performed By: #### V ITAD, FETIBC, FERR #### [facility] [address] [place] [address] Dr. Andrey Hargrove WBC 0-2 Abnormal NONE SEEN [facility] Comment on above: Performed By: #### V ITAD, FETIBC, FERR #### [facility] [address] [place] [address] Dr. Andrey Hargrove URIC ACID SERUMon 05-23-2022 Urate [Mass/Vol] 7.4 mg/dL Critically high 2.6-6.0 [facility] Comment on above: Performed By: #### L IPID, TSH, FT3 #### [facility] [address] [place] [address] Dr. Andrey Hargrove URINE T PROTEIN CREAT RATIOo n 05-23-2022 Protein (U) [Mass/Vol] 39.9 mg/dL Critically high <=12.0 [facility] Comment on above: Performed By: #### U RTPCR #### [facility] [address] [place] [address] Dr. Andrey Hargrove UR PROT CREAT RAT 0.64 Normal [facility] Comment on above: Performed By: #### U RTPCR #### [facility] [address] [place] [address] Dr. Andrey Hargrove URINE CREAT 62.30 mg/dL Normal 20.00-300.00 [facility] Comment on above: Performed By: #### U RTPCR #### [facility] [address] [place] [address] Dr. Andrey Hargrove VITAMIN D 25 OHon 05-23-2022 VIT D 25-OH 90.7 ng/mL Normal [facility] Comment on above: Performed By: #### L IPID, TSH, FT3 #### [facility] [address] [place] [address] Dr. Andrey Hargrove VIT D RANGES SEE BELOW Normal [facility] Comment on above: Result Comment: <20 ng/mL Vit D deficient 20 - <30 ng/mL Vit D insufficient 30 - 100 ng/mL Vit D sufficient >100 ng/mL Potential Toxicity Performed By: #### L IPID, TSH, FT3 #### [facility] [address] [place] [address] Dr. Andrey Hargrove MAGNESIUMon 05-14-2022 Magnesium [Mass/Vol] 2.1 mg/dL Normal 1.8-2.4 [facility] Comment on above: Performed By: #### L IPID, TSH, FT3 #### [facility] [address] [place] [address] Dr. Andrey Hargrove PROF CHEM 8 (BAS METB)on Anion gap [Moles/Vol] 12.0 mmol/L Normal [facility] Comment on above: Performed By: #### L IPID, TSH, FT3 #### [facility] [address] [place] [address] Dr. Andrey Hargrove Calcium [Mass/Vol] 9.0 mg/dL Normal 8.5-10.1 [facility] Comment on above: Performed By: #### L IPID, TSH, FT3 #### [facility] [address] [place] [address] Dr. Andrey Hargrove Chloride [Moles/Vol] 97 mmol/L Critically low 98-107 [facility] Comment on above: Performed By: #### L IPID, TSH, FT3 #### [facility] [address] [place] [address] Dr. Andrey Hargrove CO2 [Moles/Vol] 30.4 mmol/L Normal 21.0-32.0 [facility] Comment on above: Performed By: #### L IPID, TSH, FT3 #### [facility] [address] [address] [address] Andrey Hargrove Creatinine [Mass/Vol] 2.28 mg/dL Critically high 0.55-1.02 [facility] Comment on above: Performed By: #### L IPID, TSH, FT3 #### [facility] [address] [place] [address] Dr. Andrey Hargrove EGFR-AF WALLISIAN 26 mL/min/1.73m2 Critically low >=60 [facility] Comment on above: Performed By: #### L IPID, TSH, FT3 #### [facility] [address] [place] [address] Dr. Andrey Hargrove EGFR-NON AF WALLISIAN 21 mL/min/1.73m2 Critically low >=60 [facility] Comment on above: Performed By: #### L IPID, TSH, FT3 #### [facility] [address] [place] [address] Dr. Andrey Hragrove Glucose [Mass/Vol] 190 mg/dL Critically high 74-106 [facility] Comment on above: Performed By: #### L IPID, TSH, FT3 #### [facility] [address] [place] [address] Dr. Andrey Hargrove Potassium [Moles/Vol] 3.4 mmol/L Critically low 3.5-5.1 [facility] Comment on above: Performed By: #### L IPID, TSH, FT3 #### [facility] [address] [place] [address] Dr. Andrey Hargrove Sodium [Moles/Vol] 136 mmol/L Normal 136-145 [facility] Comment on above: Performed By: #### L IPID, TSH, FT3 #### [facility] [address] [place] [address] Dr. Andrey Hargrove Urea nitrogen [Mass/Vol] 73.0 mg/dL Critically high 7.0-18 .0 [facility] Comment on above: Performed By: #### L IPID, TSH, FT3 #### [facility] [address] [place] [address] Dr. Andrey Hargrove Urea nitrogen/Creatinine [Mass ratio] 32.0 mg/mg Normal [facility] Comment on above: Performed By: #### L IPID, TSH, FT3 #### [facility] [address] [place] [address] Dr. Andrey Hargrove XR CHEST 2 Von [...] by: RENETTA RENEE Date: 2022-05-12 09:12 Normal [facility] BNPon 05-11-2022 Natriuretic peptide B (Bld) [Mass/Vol] 7074.0 pg/mL Critically high <=900.0 [facility] Comment on above: Performed By: #### V DANIA VASQUES, FERR #### [facility] [address] [place] [address] Dr. Andrey Hargrove CBC AUTO DIFFon 05-11-2022 BASO # 0.1 103/ul Normal 0.0-0.1 [facility] Comment on above: Performed By: #### V DANIA VASQUES, FERR #### [facility] [address] [place] [address] Dr. Andrey Hargrove Basophils/100 WBC (Bld) 0.7 % Normal 0.2-2.0 [facility] Comment on above: Performed By: #### V JOSE VASQUESC, FERR #### [facility] [address] [place] [address] Dr. Andrey Hargrove EO # 0.3 103/ul Normal 0.0-0.7 [facility] Comment on above: Performed By: #### V ITAD, FETIBC, FERR #### [facility] [address] [place] [address] Dr. Andrey Hargrove Eosinophils/100 WBC (Bld) 3.8 % Normal 0.9-7.[address] [facility] Comment on above: Performed By: #### V ITAD, FETIBC, FERR #### [facility] [address] [place] [address] Dr. Andrey Hargrove Erythrocyte distribution width (RBC) [Ratio] 14.7 % Normal 11.0-15.[address] [facility] Comment on above: Performed By: #### V ITAD, FETIBC, FERR #### [facility] [address] [place] [address] Dr. Andrey Hargrove Hematocrit (Bld) [Volume fraction] 29.6 % Critically low 36.0-48.0 [facility] Comment on above: Performed By: #### V ITAD, FETIBC, FERR #### [facility] [address] [place] [address] Dr. Andrey Hargrove Hemoglobin (Bld) [Mass/Vol] 9.9 g/dL Critically low 12.0-16.0 [facility] Comment on above: Performed By: #### V ITAD, FETIBC, FERR #### [facility] [address] [place] [address] Dr. Andrey Hargrove IG # 0.03 10e3/ul Normal 0.00-0.[address] [facility] Comment on above: Performed By: #### V ITAD, FETIBC, FERR #### [facility] [address] [place] [address] Dr. Andrey Hargrove IG % 0.4 % Normal 0.0-0.[address] [facility] Comment on above: Performed By: #### V ITAD, FETIBC, FERR #### [facility] [address] [place] [address] Dr. Andrey Hargrove LYMPH # 1.3 103/ul Normal 1.2-3.[address] [facility] Comment on above: Performed By: #### V ITAD, FETIBC, FERR #### [facility] [address] [place] [address] Dr. Andrey Hargrove Lymphocytes/100 WBC (Bld) 16.3 % Critically low 20.5-60.0 [facility] Comment on above: Performed By: #### V ITAD, FETIBC, FERR #### [facility] [address] [place] [address] Dr. Andrey Hargrove MANUAL DIFF REQ NO Normal [facility] Comment on above: Performed By: #### V ITAD, FETIBC, FERR #### [facility] [address] [place] [address] Dr. Andrey Hargrove MCH (RBC) [Entitic mass] 28.7 pg Normal 26.7-34.0 [facility] Comment on above: Performed By: #### V ITAD, FETIBC, FERR #### [facility] [address] [place] [address] Dr. Andrey Hargrove MCHC (RBC) [Mass/Vol] 33.4 g/dL Normal 29.9-35.2 [facility] Comment on above: Performed By: #### V ITAD, FETIBC, FERR #### [facility] [address] [place] [address] Dr. Andrey Hargrove MCV (RBC) [Entitic vol] 85.8 fL Normal 81.0-99.0 [facility] Comment on above: Performed By: #### V ITAD, FETIBC, FERR #### [facility] [address] [place] [address] Dr. Andrey Hargrove MONO # 0.7 103/ul Normal 0.3-0.8 [facility] Comment on above: Performed By: #### V ITAD, FETIBC, FERR #### [facility] [address] [place] [address] Dr. Andrey Hargrove Monocytes/100 WBC (Bld) 8.7 % Normal 1.7-12.0 [facility] Comment on above: Performed By: #### V ITAD, FETIBC, FERR #### [facility] [address] [place] [address] Dr. Andrey Hargrove NEUT # 5.4 103/ul Normal 1.4-6.[address] [facility] Comment on above: Performed By: #### V ITAD, FETIBC, FERR #### [facility] [address] [place] [address] Dr. Andrey Hargrove Neutrophils/100 WBC (Bld) 70.1 % Normal 43.0-75.[address] [facility] Comment on above: Performed By: #### V ITAD, FETIBC, FERR #### [facility] [address] [place] [address] Dr. Andrey Hargrove Platelet mean volume (Bld) [Entitic vol] 10.9 fL Normal 9.5-13.[address] [facility] Comment on above: Performed By: #### V ITAD, FETIBC, FERR #### [facility] [address] [place] [address] Dr. Andrey Hargrove PLT 171 103/ul Normal 150-[address] [facility] Comment on above: Performed By: #### V ITAD, FETIBC, FERR #### [facility] [address] [place] [address] Dr. Andrey Hargrove RBC 3.45 106/ul Critically low 4.20-5.40 [facility] Comment on above: Performed By: #### V ITAD, FETIBC, FERR #### [facility] [address] [place] [address] Dr. Andrey Hargrove WBC 7.7 103/ul Normal 4.0-11.[address] [facility] Comment on above: Performed By: #### V ITAD, FETIBC, FERR #### [facility] [address] [place] [address] Dr. Andrey Hargrove PROF CHEM 8 (BAS METB)on Anion gap [Moles/Vol] 9.8 mmol/L Normal [facility] Comment on above: Performed By: #### V ITAD, FETIBC, FERR #### [facility] [address] [place] [address] Dr. Andrey Hargrove Calcium [Mass/Vol] 9.1 mg/dL Normal 8.5-10.1 [facility] Comment on above: Performed By: #### V ITAD, FETIBC, FERR #### [facility] [address] [place] [address] Dr. Andrey Hargrove Chloride [Moles/Vol] 96 mmol/L Critically low 98-107 [facility] Comment on above: Performed By: #### V ITAD, FETIBC, FERR #### [facility] [address] [place] [address] Dr. Andrey Hargrove CO2 [Moles/Vol] 30.8 mmol/L Normal 21.0-32.0 [facility] Comment on above: Performed By: #### V ITAD, FETIBC, FERR #### [facility] [address] [place] [address] Dr. Andrey Hargrove Creatinine [Mass/Vol] 2.28 mg/dL Critically high 0.55-1.02 [facility] Comment on above: Performed By: #### V ITAD, FETIBC, FERR #### [facility] [address] [place] [address] Dr. Andrey Hargrove EGFR-AF WALLISIAN 26 mL/min/1.73m2 Critically low >=60 [facility] Comment on above: Performed By: #### V ITAD, FETIBC, FERR #### [facility] [address] [place] [address] Dr. Andrey Hargrove EGFR-NON AF WALLISIAN 21 mL/min/1.73m2 Critically low >=60 [facility] Comment on above: Performed By: #### V ITAD, FETIBC, FERR #### [facility] [address] [place] [address] Dr. Andrey Hargrove Glucose [Mass/Vol] 158 mg/dL Critically high 74-106 [facility] Comment on above: Performed By: #### V ITAD, FETIBC, FERR #### [facility] [address] [place] [address] Dr. Andrey Hargrove Potassium [Moles/Vol] 3.6 mmol/L Normal 3.5-5.1 [facility] Comment on above: Performed By: #### V ITAD, FETIBC, FERR #### [facility] [address] [place] [address] Dr. Andrey Hargrove Sodium [Moles/Vol] 133 mmol/L Critically low 136-145 [facility] Comment on above: Performed By: #### V ITAD, FETIBC, FERR #### [facility] [address] [place] [address] Dr. Andrey Hargrove Urea nitrogen [Mass/Vol] 66.0 mg/dL Critically high 7.0-18 .0 [facility] Comment on above: Performed By: #### V ITAD, FETIBC, FERR #### [facility] [address] [place] [address] Dr. Andrey Hargrove Urea nitrogen/Creatinine [Mass ratio] 28.9 mg/mg Normal [facility] Comment on above: Performed By: #### V ITAD, FETIBC, FERR #### [facility] [address] [place] [address] Dr. Andrey Hargrove MAGNESIUMon 03-17-2022 Magnesium [Mass/Vol] 1.9 mg/dL Normal 1.8-2.4 [facility] Comment on above: Performed By: #### V ITAD, FETIBC, FERR #### [facility] [address] [place] [address] Dr. Andrey Hargrove PROF CHEM 8 (BAS METB)on Anion gap [Moles/Vol] 11.7 mmol/L Normal [facility] Comment on above: Performed By: #### V ITAD, FETIBC, FERR #### [facility] [address] [place] [address] Dr. Andrey Hargrove Calcium [Mass/Vol] 9.4 mg/dL Normal 8.5-10.1 [facility] Comment on above: Performed By: #### V ITAD, FETIBC, FERR #### [facility] [address] [place] [address] Dr. Andrey Hargrove Chloride [Moles/Vol] 97 mmol/L Critically low 98-107 [facility] Comment on above: Performed By: #### V ITAD, FETIBC, FERR #### [facility] [address] [place] [address] Dr. Andrey Hargrove CO2 [Moles/Vol] 29.0 mmol/L Normal 21.0-32.0 [facility] Comment on above: Performed By: #### V ITAD, FETIBC, FERR #### [facility] [address] [place] [address] Dr. Andrey Hargrove Creatinine [Mass/Vol] 2.02 mg/dL Critically high 0.55-1.02 [facility] Comment on above: Performed By: #### V ITAD, FETIBC, FERR #### [facility] [address] [place] [address] Dr. Andrey Hargrove EGFR-AF WALLISIAN 30 mL/min/1.73m2 Critically low >=60 [facility] Comment on above: Performed By: #### V ITAD, FETIBC, FERR #### [facility] [address] [place] [address] Dr. Andrey Hargrove EGFR-NON AF WALLISIAN 24 mL/min/1.73m2 Critically low >=60 [facility] Comment on above: Performed By: #### V ITAD, FETIBC, FERR #### [facility] [address] [place] [address] Dr. Andrey Hargrove Glucose [Mass/Vol] 204 mg/dL Critically high 74-106 [facility] Comment on above: Performed By: #### V ITAD, FETIBC, FERR #### [facility] [address] [place] [address] Dr. Andrey Hargrove Potassium [Moles/Vol] 3.7 mmol/L Normal 3.5-5.1 [facility] Comment on above: Performed By: #### V ITAD, FETIBC, FERR #### [facility] [address] [place] [address] Dr. Andrey Hargrove Sodium [Moles/Vol] 134 mmol/L Critically low 136-145 [facility] Comment on above: Performed By: #### V ITAD, FETIBC, FERR #### [facility] [address] [place] [address] Dr. Andrey Hargrove Urea nitrogen [Mass/Vol] 60.0 mg/dL Critically high 7.0-18 [address] [facility] Comment on above: Performed By: #### V ITAD, FETIBC, FERR #### [facility] [address] [place] [address] Dr. Andrey Hargrove Urea nitrogen/Creatinine [Mass ratio] 29.7 mg/mg Normal [facility] Comment on above: Performed By: #### V ITAD, FETIBC, FERR #### [facility] [address] [place] [address] Dr. Andrey Hargrove PTH INTACTon 01-18-2022 PTH, Intact 51 pg/mL Normal 15-65 [facility] Comment on above: Performed By: #### L IPID, TSH, FT3 #### [facility] [address] [place] [address] Dr. Andrey Hargrove FERRITINon 01-17-2022 Ferritin [Mass/Vol] 133.0 ng/mL Normal 8.0-252.0 [facility] Comment on above: Performed By: #### V ITAD, FETIBC, FERR #### [facility] [address] [place] [address] Dr. Andrey Hargrove HEMOGRAM AND PLATELon 2021 Hematocrit (Bld) [Volume fraction] 31.7 % Critically low 36.0-48.0 [facility] Comment on above: Performed By: #### V ITAD, FETIBC, FERR #### [facility] [address] [place] [address] Dr. Andrey Hargrove Hemoglobin (Bld) [Mass/Vol] 10.2 g/dL Critically low 12.0-16.[address] [facility] Comment on above: Performed By: #### V ITAD, FETIBC, FERR #### [facility] [address] [place] [address] Dr. Andrey Hargrove MCH (RBC) [Entitic mass] 28.3 pg Normal 26.7-34.[address] [facility] Comment on above: Performed By: #### V ITAD, FETIBC, FERR #### [facility] [address] [place] [address] Dr. Andrey Hargrove MCHC (RBC) [Mass/Vol] 32.2 g/dL Normal 29.9-35.2 [facility] Comment on above: Performed By: #### V ITAD, FETIBC, FERR #### [facility] [address] [place] [address] Dr. Andrey Hargrove MCV (RBC) [Entitic vol] 88.1 fL Normal 81.0-99.0 [facility] Comment on above: Performed By: #### V ITAD, FETIBC, FERR #### [facility] [address] [place] [address] Dr. Andrey Hargrove PLT 198 103/ul Normal 150-450 [facility] Comment on above: Performed By: #### V ITAD, FETIBC, FERR #### [facility] [address] [place] [address] Dr. Andrey Hargrove RBC 3.60 106/ul Critically low 4.20-5.40 [facility] Comment on above: Performed By: #### V ITAD, FETIBC, FERR #### [facility] [address] [place] [address] Dr. Andrey Hargrove WBC 8.5 103/ul Normal 4.0-11.0 [facility] Comment on above: Performed By: #### V ITAD, FETIBC, FERR #### [facility] [address] [place] [address] Dr. Andrey Hargrove IRON AND TIBCon 01-17-2022 % SATURATION 17.8 % Normal [facility] Comment on above: Performed By: #### V ITAD, FETIBC, FERR #### [facility] [address] [place] [address] Dr. Andrey Hargrove Iron [Mass/Vol] 47.0 ug/dL Critically low 50.0-170.0 [facility] Comment on above: Performed By: #### V ITAD, FETIBC, FERR #### [facility] [address] [place] [address] Dr. Andrey Hargrove TIBC DIRECT 264.0 ug/dL Normal 250.0-450.0 [facility] Comment on above: Performed By: #### V ITAD, FETIBC, FERR #### [facility] [address] [place] [address] Dr. Andrey Hargrove MAGNESIUMon 01-17-2022 Magnesium [Mass/Vol] 2.0 mg/dL Normal 1.8-2.4 [facility] Comment on above: Performed By: #### V ITAD, FETIBC, FERR #### [facility] [address] [place] [address] Dr. Andrey Hargrove RENAL FUNCTION PANELon 01-17 Albumin [Mass/Vol] 3.3 g/dL Critically low 3.4-5.0 [facility] Comment on above: Performed By: #### V ITAD, FETIBC, FERR #### [facility] [address] [address] [address] Andrey Hargrove Calcium [Mass/Vol] 9.1 mg/dL Normal 8.5-10.1 [facility] Comment on above: Performed By: #### V ITAD, FETIBC, FERR #### [facility] [address] [address] [address] Andrey Hargrove Chloride [Moles/Vol] 104 mmol/L Normal 98-107 [facility] Comment on above: Performed By: #### V ITAD, FETIBC, FERR #### [facility] [address] [address] [address] Andrey Hargrove CO2 [Moles/Vol] 27.6 mmol/L Normal 21.0-32.0 [facility] Comment on above: Performed By: #### V ITAD, FETIBC, FERR #### [facility] [address] [place] [address] Dr. Andrey Hargrove Creatinine [Mass/Vol] 1.71 mg/dL Critically high 0.55-1.02 [facility] Comment on above: Performed By: #### V ITAD, FETIBC, FERR #### [facility] [address] [place] [address] Dr. Andrey Hargrove EGFR-AF WALLISIAN 36 mL/min/1.73m2 Critically low >=60 [facility] Comment on above: Performed By: #### V ITAD, FETIBC, FERR #### [facility] [address] [place] [address] Dr. Andrey Hargrove EGFR-NON AF WALLISIAN 30 mL/min/1.73m2 Critically low >=60 [facility] Comment on above: Performed By: #### V ITAD, FETIBC, FERR #### [facility] [address] [place] [address] Dr. Andrey Hargrove Glucose [Mass/Vol] 115 mg/dL Critically high 74-106 [facility] Comment on above: Performed By: #### V ITAD, FETIBC, FERR #### [facility] [address] [place] [address] Dr. Andrey Hargrove Phosphate [Mass/Vol] 4.3 mg/dL Normal 2.6-4.7 [facility] Comment on above: Performed By: #### V ITAD, FETIBC, FERR #### [facility] [address] [place] [address] Dr. Andrey Hargrove Potassium [Moles/Vol] 3.9 mmol/L Normal 3.5-5.1 [facility] Comment on above: Performed By: #### V ITAD, FETIBC, FERR #### [facility] [address] [place] [address] Dr. Andrey Hargrove Sodium [Moles/Vol] 139 mmol/L Normal 136-145 [facility] Comment on above: Performed By: #### V ITAD, FETIBC, FERR #### [facility] [address] [place] [address] Dr. Andrey Hargrove Urea nitrogen [Mass/Vol] 38.0 mg/dL Critically high 7.0-18 .0 [facility] Comment on above: Performed By: #### V ITAD, FETIBC, FERR #### [facility] [address] [place] [address] Dr. Andrey Hargrove UA RANDOM W/MICROSCOPICon 07 -18-2022 BACTERIA NONE SEEN Normal NONE SEEN [facility] Comment on above: Performed By: #### L IPID, TSH, FT3 #### [facility] [address] [place] [address] Dr. Andrey Hargrove Bilirubin Ql (U) Negative Normal NEGATIVE [facility] Comment on above: Performed By: #### L IPID, TSH, FT3 #### [facility] [address] [address] [address] Andrey Hargrove CAST SEEN Abnormal NONE SEEN [facility] Comment on above: Performed By: #### L IPID, TSH, FT3 #### [facility] [address] [place] [address] Dr. Andrey Hargrove Clarity (U) CLEAR Normal CLEAR [facility] Comment on above: Performed By: #### L IPID, TSH, FT3 #### [facility] [address] [place] [address] Dr. Andrey Hargrove Color (U) LT. YELLOW Normal YELLOW [facility] Comment on above: Performed By: #### L IPID, TSH, FT3 #### [facility] [address] [place] [address] Dr. Andrey Hargrove Crystals LM Nom (Urine sed) NONE SEEN Normal NONE SEEN [facility] Comment on above: Performed By: #### L IPID, TSH, FT3 #### [facility] [address] [place] [address] Dr. Andrey Hargrove Epithelial cells LM Ql (Urine sed) FEW Abnormal NONE SEEN /RARE [facility] Comment on above: Performed By: #### L IPID, TSH, FT3 #### [facility] [address] [place] [address] Dr. Andrey Hargrove Glucose Ql (U) Negative Normal NEGATIVE [facility] Comment on above: Performed By: #### L IPID, TSH, FT3 #### [facility] [address] [place] [address] Dr. Andrey Hargrove Hemoglobin Ql (U) Negative Normal NEGATIVE [facility] Comment on above: Performed By: #### L IPID, TSH, FT3 #### [facility] [address] [address] [address] Andrey Hargrove HYALINE CAST RARE Normal [facility] Comment on above: Performed By: #### L IPID, TSH, FT3 #### [facility] [address] [place] [address] Dr. Andrey Hargrove Ketones Ql (U) Negative Normal NEGATIVE [facility] Comment on above: Performed By: #### L IPID, TSH, FT3 #### [facility] [address] [place] [address] Dr. Andrey Hargrove LEUKOCYTES TRACE Abnormal NEGATIVE [facility] Comment on above: Performed By: #### L IPID, TSH, FT3 #### [facility] [address] [place] [address] Dr. Andrey Hargrove MUCOUS NONE SEEN Normal NONE SEEN [facility] Comment on above: Performed By: #### L IPID, TSH, FT3 #### [facility] [address] [place] [address] Dr. Andrey Hargrove Nitrite Ql (U) Negative Normal NEGATIVE [facility] Comment on above: Performed By: #### L IPID, TSH, FT3 #### [facility] [address] [place] [address] Dr. Andrey Hargrove pH (U) 5.0 [pH] Normal 5-[address] [facility] Comment on above: Performed By: #### L IPID, TSH, FT3 #### [facility] [address] [place] [address] Dr. Andrey Hargrove RBC 0-2 Normal 0-[address] [facility] Comment on above: Performed By: #### L IPID, TSH, FT3 #### [facility] [address] [place] [address] Dr. Andrey Hargrove SPEC GRAVITY 1.020 Normal 1.005-<=1.02 5 [facility] Comment on above: Performed By: #### L IPID, TSH, FT3 #### [facility] [address] [place] [address] Dr. Andrey Hargrove UA PROTEIN Negative Normal NEGATIVE/ TRACE [facility] Comment on above: Performed By: #### L IPID, TSH, FT3 #### [facility] [address] [address] [address] Andrey Hargrove Urobilinogen Qn (U) 0.2 {Kelly'U}/dL Normal 0.2 - 1. [address] [facility] Comment on above: Performed By: #### L IPID, TSH, FT3 #### [facility] [address] [place] [address] Dr. Andrey Hargrove WBC 2-5 Abnormal NONE SEEN [facility] Comment on above: Performed By: #### L IPID, TSH, FT3 #### [facility] [address] [place] [address] Dr. Andrey Hargrove URIC ACID SERUMon 01-17-2022 Urate [Mass/Vol] 5.4 mg/dL Normal 2.6-6.0 [facility] Comment on above: Performed By: #### V ITAD, FETIBC, FERR #### [facility] [address] [place] [address] Dr. Andrey Hargrove URINE T PROTEIN CREAT RATIOo n 01-17-2022 Protein (U) [Mass/Vol] 15.3 mg/dL Critically high <=12.[address] [facility] Comment on above: Performed By: #### V ITAD, FETIBC, FERR #### [facility] [address] [place] [address] Dr. Andrey Hargrove UR PROT CREAT RAT 0.36 Normal [facility] Comment on above: Performed By: #### V ITAD, FETIBC, FERR #### [facility] [address] [place] [address] Dr. Andrey Hargrove URINE CREAT 42.16 mg/dL Normal 20.00-300.00 [facility] Comment on above: Performed By: #### V ITAD, FETIBC, FERR #### [facility] [address] [place] [address] Dr. Andrey Hargrove VITAMIN D 25 OHon 01-17-2022 VIT D 25-OH 73.8 ng/mL Normal [facility] Comment on above: Performed By: #### V ITAD, FETIBC, FERR #### [facility] [address] [place] [address] Dr. Andrey Hargrove VIT D RANGES SEE BELOW Normal [facility] Comment on above: Result Comment: <20 ng/mL Vit D deficient 20 - <30 ng/mL Vit D insufficient 30 - 100 ng/mL Vit D sufficient >100 ng/mL Potential Toxicity Performed By: #### V ITAD, FETIBC, FERR #### [facility] [address] [place] [address] Dr. Andrey Hargrove PROF CHEM 8 (BAS METB)on Anion gap [Moles/Vol] 13.3 mmol/L Normal [facility] Comment on above: Performed By: #### V ITAD, FETIBC, FERR #### [facility] [address] [place] [address] Dr. Andrey Hargrove Calcium [Mass/Vol] 9.5 mg/dL Normal 8.5-10.1 [facility] Comment on above: Performed By: #### V ITAD, FETIBC, FERR #### [facility] [address] [place] [address] Dr. Andrey Hargrove Chloride [Moles/Vol] 98 mmol/L Normal 98-107 [facility] Comment on above: Performed By: #### V ITAD, FETIBC, FERR #### [facility] [address] [place] [address] Dr. Andrey Hargrove CO2 [Moles/Vol] 25.7 mmol/L Normal 21.0-32.0 [facility] Comment on above: Performed By: #### V ITAD, FETIBC, FERR #### [facility] [address] [place] [address] Dr. Andrey Hargrove Creatinine [Mass/Vol] 2.92 mg/dL Critically high 0.55-1.02 [facility] Comment on above: Performed By: #### V ITAD, FETIBC, FERR #### [facility] [address] [place] [address] Dr. Andrey Hargrove EGFR-AF WALLISIAN 19 mL/min/1.73m2 Critically low >=60 [facility] Comment on above: Performed By: #### V ITAD, FETIBC, FERR #### [facility] [address] [address] [address] Andrey Hargrove EGFR-NON AF WALLISIAN 16 mL/min/1.73m2 Critically low >=60 [facility] Comment on above: Performed By: #### V ITAD, FETIBC, FERR #### [facility] [address] [place] [address] Dr. Andrey Hargrove Glucose [Mass/Vol] 156 mg/dL Critically high 74-106 [facility] Comment on above: Performed By: #### V ITAD, FETIBC, FERR #### [facility] [address] [place] [address] Dr. Andrey Hargrove Potassium [Moles/Vol] 5.0 mmol/L Normal 3.5-5.1 [facility] Comment on above: Performed By: #### V ITAD, FETIBC, FERR #### [facility] [address] [place] [address] Dr. Andrey Hargrove Sodium [Moles/Vol] 132 mmol/L Critically low 136-145 [facility] Comment on above: Performed By: #### V ITAD, FETIBC, FERR #### [facility] [address] [place] [address] Dr. Andrey Hargrove Urea nitrogen [Mass/Vol] 77.0 mg/dL Critically high 7.0-18 .0 [facility] Comment on above: Result Comment: CALL ED TO FRANCIS JUNG RMA Performed By: #### V ITAD, FETIBC, FERR #### [facility] [address] [place] [address] Dr. Andrey Hargrove Urea nitrogen/Creatinine [Mass ratio] 26.4 mg/mg Normal [facility] Comment on above: Performed By: #### V ITAD, FETIBC, FERR #### [facility] [address] [place] [address] Dr. Andrey Hargrove Cardiovascular Lab Reporton 12-10-2021 Cardiovascular Lab Report [facility] Patient Name: Claudia Estrella [facility] MR #: [id number] Physician: Karthik Calvo of [facility] Service Date: 12/09/2021 Division of Birthdate: 1950 Cardiology Room #: CC Adult Cardiovascular Services [facility] [address] [place], [place] [address] Cardiovascular Laboratory Report INDICATION: The patient is [...] signed informed consent. She was brought to lab instructor in a fasting state. The right neck area was prepped and draped in usual fashion. Micropuncture technique and ultrasound guidance were used for access in the right internal jugular vein. A 5-Tristanian x 11 cm sheath was placed. A 5-Tristanian Dumont catheter was used for right heart [...] Fish M.D. Date Trans: 12/09/2021 11:37 P/joey [id number] cc: John Perdomo D.O. [address] [place] [address] [id number] [facility] [address] Normal [facility] CBC COMPLETE BLOOD COUNTon 0 12-09-2021 Erythrocyte distribution width (RBC) [Ratio] 13.6 % Normal 11.5-15.0 [facility] Comment on above: Performed By: #### 5 [id number] #### [facility] [address] Hematocrit (Bld) [Volume fraction] 35.6 % Low 36.0-45.0 [facility] Comment on above: Performed By: #### 5 0608 #### [facility] [address] [facility]. [address] Hemoglobin (Bld) [Mass/Vol] 11.8 g/dL Low 12.0-15.0 [facility] Comment on above: Performed By: #### 5 0608 #### [facility] [address] [facility]. [address] MCH (RBC) [Entitic mass] 28.6 pg Normal 27.0-33.0 [facility] Comment on above: Performed By: #### 5 0608 #### [facility] [address] MCHC (RBC) [Mass/Vol] 33.1 g/dL Normal 32.0-35.0 [facility] Comment on above: Performed By: #### 5 [id number] #### [facility] [address] [place] [address], [facility] MCV (RBC) [Entitic vol] 86.2 fL Normal 82.0-98.0 T [facility] Comment on above: Performed By: #### 5 [id number] #### [facility] [address] Nucleated RBC/100 WBC (Bld) [Ratio] 0 % Normal 0-0 [facility] Comment on above: Performed By: #### 5 0608 #### [facility] [address] PLAT CNT 240 10*3/uL Normal 150-400 [facility] Comment on above: Performed By: #### 5 0608 #### [facility] [address] [place] [address], [facility] RBC (Bld) [#/Vol] 4.13 10*6/uL Normal 3.80-5.00 [facility] Comment on above: Performed By: #### 5 0608 #### [facility] [address] [place] [address], [facility] WBC (Bld) [#/Vol] 14.13 10*3/uL High 4.00-10.60 [facility] Comment on above: Performed By: #### 5 0608 #### [facility] [address] Covid-19 PCR (CVDTB)on 06 SARS-CoV-2 (COVID-19) RNA JAYASHREE+probe Ql (Unsp spec) Not detected Normal NOT DETECTED [facility] Comment on above: Result Comment: This test is not yet approved or cleared by the [place] FDA. When there are no FDA-approved or cleared tests available, and other criteria are met, FDA can make tests available under an emergency access mechanism called an Emergency Use Authorization (EUA). The EUA for this test is supported by the [employer] of Health and Human Service's (HHS's) declaration [...] By: #### V ITAD, FETIBC, FERR #### [facility] [address] [place] [address] Dr. Andrey Hargrove ECHOCARDIO M/2D COMPLETEon 0 12-06-2021 ECHOCARDIO M/2D COMPLETE Patient: CLAUDIA ESTRELLA Exam Date: 12/06/2021 : 1950 Gender:F Ordering : KWAN ROSALES Admission #: [id number] Family : DR JOHN PERDOMO D.O. Order #: [id number] CLICK HERE TO VIEW EXAM ECHOCARDIOGRAM REPORT [...] Area(A4C): 14.80 cm2 Left Atrium Systolic Volume(A2C): 20691 mm3 Left Atrium Systolic Volume(A4C): 25030 mm3 Mitral Valve MV E to A [...] Fish M.D. on 12/06/2021 at 17:31 Normal [facility] BNPon 12-01-2021 Natriuretic peptide B (Bld) [Mass/Vol] 5127.0 pg/mL Critically high <=900.0 [facility] Comment on above: Performed By: #### V ITAD, FETIBC, FERR #### [facility] [address] [place] [address] Dr. Andrey Hargrove PROF CHEM 8 (BAS METB)on Anion gap [Moles/Vol] 13.9 mmol/L Normal [facility] Comment on above: Performed By: #### V ITAD, FETIBC, FERR #### [facility] [address] [place] [address] Dr. Andrey Hargrove Calcium [Mass/Vol] 9.4 mg/dL Normal 8.5-10.1 [facility] Comment on above: Performed By: #### V ITAD, FETIBC, FERR #### [facility] [address] [address] [address] Andrey Hargrove Chloride [Moles/Vol] 99 mmol/L Normal 98-107 [facility] Comment on above: Performed By: #### V ITAD, FETIBC, FERR #### [facility] [address] [place] [address] Dr. Andrey Hargrove CO2 [Moles/Vol] 28.4 mmol/L Normal 21.0-32.0 [facility] Comment on above: Performed By: #### V ITAD, FETIBC, FERR #### [facility] [address] [place] [address] Dr. Andrey Hargrove Creatinine [Mass/Vol] 2.11 mg/dL Critically high 0.55-1.02 [facility] Comment on above: Performed By: #### V ITAD, FETIBC, FERR #### [facility] [address] [address] [address] Andrey Hargrove EGFR-AF WALLISIAN 28 mL/min/1.73m2 Critically low >=60 [facility] Comment on above: Performed By: #### V ITAD, FETIBC, FERR #### [facility] [address] [address] [address] Andrey Hargrove EGFR-NON AF WALLISIAN 23 mL/min/1.73m2 Critically low >=60 [facility] Comment on above: Performed By: #### V ITAD, FETIBC, FERR #### [facility] [address] [place] [address] Dr. Andrey Hargrove Glucose [Mass/Vol] 179 mg/dL Critically high 74-106 [facility] Comment on above: Performed By: #### V ITAD, FETIBC, FERR #### [facility] [address] [address] [address] Andrey Hargrove Potassium [Moles/Vol] 4.3 mmol/L Normal 3.5-5.1 [facility] Comment on above: Performed By: #### V ITAD, FETIBC, FERR #### [facility] [address] [place] [address] Dr. Andrey Hargrove Sodium [Moles/Vol] 137 mmol/L Normal 136-145 [facility] Comment on above: Performed By: #### V ITAD, FETIBC, FERR #### [facility] [address] [address] [address] Andrey Hargrove Urea nitrogen [Mass/Vol] 62.0 mg/dL Critically high 7.0-18 .0 [facility] Comment on above: Performed By: #### V ITAD, FETIBC, FERR #### [facility] [address] [place] [address] Dr. Andrey Hargrove Urea nitrogen/Creatinine [Mass ratio] 29.4 mg/mg Normal [facility] Comment on above: Performed By: #### V ITAD, FETIBC, FERR #### [facility] [address] [address] [address] Andrey Hargrove BNPon 11-19-2021 Natriuretic peptide B (Bld) [Mass/Vol] 4773.0 pg/mL Critically high <=900.0 [facility] Comment on above: Performed By: #### V ITAD, FETIBC, FERR #### [facility] [address] [address] [address] Andrey Hargrove PROF CHEM 8 (BAS METB)on Anion gap [Moles/Vol] 11.3 mmol/L Normal [facility] Comment on above: Performed By: #### V ITAD, FETIBC, FERR #### [facility] [address] [place] [address] Dr. Andrey Hargrove Calcium [Mass/Vol] 8.9 mg/dL Normal 8.5-10.1 [facility] Comment on above: Performed By: #### V ITAD, FETIBC, FERR #### [facility] [address] [place] [address] Dr. Andrey Hargrove Chloride [Moles/Vol] 100 mmol/L Normal 98-107 [facility] Comment on above: Performed By: #### V ITAD, FETIBC, FERR #### [facility] [address] [place] [address] Dr. Andrey Hargrove CO2 [Moles/Vol] 30.9 mmol/L Normal 21.0-32.0 [facility] Comment on above: Performed By: #### V ITAD, FETIBC, FERR #### [facility] [address] [address] [address] Andrey Hargrove Creatinine [Mass/Vol] 2.01 mg/dL Critically high 0.55-1.02 [facility] Comment on above: Performed By: #### V ITAD, FETIBC, FERR #### [facility] [address] [place] [address] Dr. nAdrey Hargrove EGFR-AF WALLISIAN 30 mL/min/1.73m2 Critically low >=60 [facility] Comment on above: Performed By: #### V ITAD, FETIBC, FERR #### [facility] [address] [address] [address] Andrey Hargrove EGFR-NON AF WALLISIAN 24 mL/min/1.73m2 Critically low >=60 [facility] Comment on above: Performed By: #### V ITAD, FETIBC, FERR #### [facility] [address] [address] [address] Andrey Hargrove Glucose [Mass/Vol] 81 mg/dL Normal 74-106 [facility] Comment on above: Performed By: #### V ITAD, FETIBC, FERR #### [facility] [address] [address] [address] Andrey Hargrove Potassium [Moles/Vol] 3.2 mmol/L Critically low 3.5-5.1 [facility] Comment on above: Performed By: #### V ITAD, FETIBC, FERR #### [facility] [address] [place] [address] Dr. Andrey Hargrove Sodium [Moles/Vol] 139 mmol/L Normal 136-145 [facility] Comment on above: Performed By: #### V ITAD, FETIBC, FERR #### [facility] [address] [place] [address] Dr. Andrey Hargrove Urea nitrogen [Mass/Vol] 51.0 mg/dL Critically high 7.0-18 .0 [facility] Comment on above: Performed By: #### V ITAD, FETIBC, FERR #### [facility] [address] [place] [address] Dr. Andrey Hargrove Urea nitrogen/Creatinine [Mass ratio] 25.4 mg/mg Normal [facility] Comment on above: Performed By: #### V ITAD, FETIBC, FERR #### [facility] [address] [place] [address] Dr. Andrey Hargrove COVID-19 Antigenon 2 COVID-19 [...] its performance Kenny Disclaimer characteristic determined by [employer] and Kenny Disclaimer validated at [facility]. This Kenny Disclaimer test has not [...] Emergency Use Authorization for Coronavirus Kenny Disclaimer during the Public Health Emergency) Kenny Disclaimer issued on October 03, 2019. This test is only authorized Kenny Disclaimer for the duration of time the declaration that Kenny Disclaimer circumstances exist justifying the authorization of Kenny Disclaimer the emergency use of in vitro diagnostic tests for Eknny Disclaimer detection of SARS-CoV-2 virus and/or diagnosis of Kenny Disclaimer COVID-19 infection under section 564(b)(1) of the Kenny Disclaimer Act, 21 U.S.C. 360bbb-3(b)(1), unless the Kenny Disclaimer authorization is terminated or revoked sooner. PERFORMED BY: [place] [id number] PATHOLOGIST MACHINE BOOKKEEPER JAMAL ALLEN M.D. [facility] Comment on above: Performed By: #### S OFIAPOS, COVID-19 KENNY #### [id number] [facility] Kenny Ag Positiveon 07-31-19 Kenny Ag Positive Positive Critically abnormal Negative [facility] Comment on above: Result Comment: This is a duplicate Kenny SARS Antigen (JOSE RAMON) result to be used for statistical tracking purpose only. PERFORMED BY: [place] [id number] PATHOLOGIST MACHINE BOOKKEEPER JAMAL ALLEN M.D. Performed By: #### S OFIAPOS, COVID-19 KENNY #### [id number] [facility] Coding Summary.on 12-22-2020 Coding Summary. CD:[id number] Gh0bWw+PGhlYWQ+PE1FV YRtJ60ugQTiqW5UE7rQE J8RJZPUGKQQWL4UNY6kp GS6DAwjN2WsxjPm LyxppSSgWX64GYg1MJP8 kGeyJCsxnY7joTVqL7h7 ZaQvMY21tN87CAzsUDJm WfL0HmDwjipzeFRd E6qkKyRlmFWvHlp+PHRh YmxlIHdpZHRoPScxMDAl DbGmjSbgMB6mDs5aNPRs LWNvbGxhcHNlOiBj p5kaLHSbHDpxLK7hoKpu F9WjvUY3AUUhn6v6Ng83 dHI+NPWhXTQ1eAomNNmb e913ZiQtz7xoXLB4 bTNgVNasMYV3G61gz5Z5 EFDcGNCkMJP1zQV3cZ7x aJbolqkuX9JmwJIgGwZ6 SCE7dUUppY5aiCee qqhwmM6rDwy+D81NVD0H NGCNHY3GKoj0P0HsGnua dHI+XB93PLTgST43wZZe kJHks7gwaHb5XgIa LSJkUWH9yLeoJAzsp8Rm PBHqA75daDGzi5M0CNEf jSxaiXTvXwLqaYD4dW4z EHiqktrzk4yycmme Fkspe7swak26oK56S88c CJemQWTsHAH5RCDzHHNf mVcaia8xnF7mGt2+IDxj g1zpb5qbcHj2SpWl VRZaaqXqoOfhOEQ2q2Sy Md27P3UuyCqhn3LeBql1 ij57gIRqx2M6aKX5DIrk GWZnsR5hWSefLvI4 OWBaHlEgqW00ySQkXPrr Wt5qnByoaAlqMU1mKXCi bhjfTRWunY0hYXKgtTAw uGdcPO7fOMSbjpoc n461KdDlVVT2GMIztLIm A8AobS8iMnEiUUQkLSQb T8SxzQSrGHmyC571RZcb EaE2YUBprcLcC3Rx CCEuuOyeJoZ9f4Q6Ij1Y b1EbxmqlIWP5ISvbQPS4 HtLmGqOkJoZ9W8OlTtf4 FTGrhAxvSI4kE3Zh JQPcggeuhozsaXX2QQLv BOCbgA04pQEpUSktPn9e j9V3p713CJKzVMTwvX91 Ly1giZckTDNdrIRD oW8uyvwly8raswjfOuUj AXWhPHz9DVn5YNQgiEbx VxWzMQC9DpQ9IJT7zZWd uQ0zzRrgpemagY2n Oyc+C14imW5cBRD3TCE4 gykmSTTjotFrGO41LF97 E6NwGotahGGjyGN+PGRp akJhgWutOE9oLiNm u1ohq9WqWLpgD2XfESXm CQsxHma1OJQaIVQ3nDD6 dP0zAIGvVQkuf2E5sKD5 M0AbhvMpon8td5xi YHDxOIxxI42ikGXel3C2 HQMymWX3VKGjdDtlSwQt zO90Fpa+QCJphTqkr0Ax Zajno6hkx8qeaPj7 IjMwJSIgdmFsaWduPSJ0 c0OwCh60P88fXOkyIYEx KTJqOOLtPDNcfIlzqa1c tA2qGd9+PGNvbCB3 dQC4kM9yQULfVyN3UFyt T829GmSvsRVwLrssh4yp c3pgoXy5YuLgHGGqtxZa oGofVHR9f2JrOq58 A42sMWloXLBgMFLaGZOi RMDwsOglie6qsR8fEv5+ TW7je6rleu20mB32sHX+ NPPwFJH3kCzoMBjx JVBjzJ6cCAozAdR7LJSw NvXklE43yKPbWNuoKj2j bHyslTkkGX7rRNEefwya d144AuJjg8peDLOt gGMxHYilZFU5S33fp2Q9 OBZvUUMyBHF7aBQ5qX9h bGlnbjogbGVmdDsgdmVy sOtkQOleTNdlW371 IHRvcDsnPlBhdGllbnQg AyDiIVo7V0PfTql2DQXf oYhqCC1yiLCoAOquBi5m tWygkCixSG7iSNTh gfnir849XvLog9mdZPMp aFPfKNawAMV1H74qo8U3 PLIgANOfWTO8dCF1cI6m bGlnbjogbGVmdDsg plUrlEeeDTtbIQwnR996 IHRvcDsnPkJpcnRoIERh sPV4FC44KR36oOGey3E9 qIV7T9VcKQAtdtvl izdzhID5YAVkLOThcK59 Gf5pqQkwXo4dONDgEDO3 BIHgxDFgS1HonS1aYcNs QYQyFCUkS9AwhJAj WCwjL062NCydEkF8ECCw coWrG1VjBSNvfQiyMuF7 q1R6Ar1TM5Z5JY83VP77 iUVxy2B0kWS7L2Lr MOZqmsrlfzzhvON0WFSn PESpnP87Kb4hyAkfDm5n FNAmJZQ6YLAdcVTfB4Kl hS5jPbMaDRTlSHVp W8RezJYxCGsaS193JCwx IgQ7SQKpzpCkW5IsPMCa jYfzDwQ6e4T5Sh2YYLm9 XS02TJ89qHCba9Y4 rWY9Z2TkNNWyxcflthpz iSZ0BCNmLWHdrG54Xa8f qYxnJv8pGEIpRLP5ILIw iNQiW6OjzT8hWeWx FUTjHSDpT0VaqAHfDTtq O581TDnaAyC0CAQoueJj N8AuAILrxWglQvI9h3S2 Gz6HOFHhVS19UWA4 zFL4EO51YU24K3ZbIthx dGFibGU+PHRhYmxlIHdp ZHRoPScxMDAlJyBzdHls CK8rEz9dKCKrFMMo zVjmlOCdPkKpk1afWNTj HRliRS7rnChoW3UolXV7 MCFpx5l8If80I60wT4Xd dXA+IHEgaDA4gGJ0 yF3zReZmPyP7HRitK488 TjQzeYAeRdlet1fqr7va yOe2XmZ2KFSacaYwvHwa MHJ3r1DbTf71B72i IHdpZHRoPSIxNSUiIHZh lKeshd5suV5bAr2+PGNv yYD5wYJ7aN4uNpXnTmG6 CCogW493KkSzpCRg Rczps3yrz7basUc9NtLs WTHfcrUabXeeLXL6q4Vr Tu49S2VudDkfq0WjFwu0 qg18sRLuz4K4eMC7 D8GtVUEhieyrqJScbCtr XE9bPPSmaofpFOBztA2o HLZoQ5v3UdFdFcU9XBye Y8HofsG0MDWmhJSe SEptDSC4X36ci5X1VIBd OLHqROX6hLB3wI3lcXgv bjogbGVmdDsgdmVydGlj FVmfSQyrH384JARq oItmTYKlwO3nALWxkZHw hQbhQE0jBAShgqdhBt0D J3IXKiwtG3qMJa3BVFI5 I7JvLje6WMResNed UD3ihVVnGVihBm8lkPml aPjvDW3dNRQtaqhpSGYs wK2tSXUlbMVkcPuqWU8l PNPtftqba056KpHm ESP9CVZlhHLrI0IioW6k IpXjCXYaRNPcX6TfaHGe QIfhZ116PShqJaI7HJBq heVuO2SeXXPspVyv OcO7i6A2Np8jVB2xSj7y NGPaJV99GX49bWGyg1U6 tUE2G4PgABZrouckesyq vCZ3PDXzTKPcxI91 iQUeWUfhIk5ml3B8k491 QVSwBBMkmO66Ur8siZns MIZikIFYtK7pjzsru1or cjogIzAwMDAwMDt0 XUn3RWKwbOuqNjKtEHX7 HtP0ZBW7dRLuqS2wtJvo pufmiD9hJdj+NjkgWWVh dtB7Z6DzRkv4ATIz xXuvEJ1rbRAaGVrjHw9w xUmeuZszYF6oKDQbrgni QPWixY5gOMComSFkxGov XG4mXAMpeyofg094 FgMrDQU3WZGloNJqV6Jp lE1oZgUrFEGfOZYnV0Yu mCGjOUaxR251HPllYcG6 PNLbnnJvA4TkGHAj rUugRxN4m3U2Jl4KZP4y kJS1J4SxBbv4YSAjsDpk MP7faZWjHScoXn2plAjc qHlbBD0fAUGfvykj YODanW6qLTYbhEJbxFfs PS6vOUEhxdmjr391RcKc ZZF5FIVtgPKgA6XqrH7p KuNjUOGdPKHfE2Nx fKWpJTcoJ711PHddEvM5 NQCwqgXiE6VsAABzaWnp KiG5z2K8Rh9EOWBfUZCq xGHmJlY6X2AgHvbt dHI+WX88JJVqNJ12sEOf lHGxa0xhbZs1XyDqEJAi JJL8lDeeNNqsf0RxBKYg U63wkATou6L9RKJv uSrevOLqFoSmmKA3qO1j YIpczvmgz3laffamHojv o2oqob20hY25X75oQWcd ZHRoPSIzMCUiIHZh qVhwfx6oqU7jZg5+PGNv dGT5jUZ5yD2wJeFbSjU7 PJqmS006ItPwtOOeMjiw o8ohv8bzzLa8GaWp IZLmkrQpyCiiQTU5u3Tk Nc88L86nUSvtQMFjVQRo QDJfZWVsgSwgdw1jmH2c Ii8+HO2nh4voxq16 dE62nLZ+XUQqMIP4oXie HLqrUPKunR3hJSacEpU5 TWYcWgDxyG75aLZrKVpq Ot8evXltvIoyFU8l UPZjazswq069EhUlv8ni LIAarEUfAOeiGJQ0H32c d7Y2QVBvYDTaUYE3hJU4 bE4cyVxrqpsqoZZw dDsgdmVydGljYWwtYWxp P019SFJaeWerVgEolUKr X8nbsbRGGS7uAdqvnWC+ GHPyFQB6wTxzVDga AZEueQ1wVACsV1b9WyKa GzZ2BMocB0PglzH7VNHq vZGxMQXerYSPnX2erafy r8zffmaiGhZhQSId ZOx1EHp9IAHlwZijYaKz KBA8ChN4IOJ9cCIoxM5j sBjxxrimnF8vPko+RklO OjwvdGQ+PHRkIHN0 pHpvBMmuZNNnsK7dVUEs Q7h8DtYgHyU7KMqvL1Vb llO5QLSwsOKmMFTqcWMK hC2brxsbk3nhiygw CzRaKJUiPVw0TCk9ADBv oBspZpPpOKJ5JvO6TNU3 lDJplY1elKcvopzeuO2q Oyc+TVJOOjwvdGQ+ ZVVhCHC7yFklUZkaBOHt nH6xCYVcO4j2XfPwTrV3 NVecP7SpqmX8PRAtsQKj GSMyrYIPmO1gopft x3axtytdTqAqNXWjEEt2 FIi6NGYzgSbcReJxEWK3 WaY7HKW5bOTpfB1isLew isgmoO0vScp+UGF5 YNV9LO79NR20K9PmPyyh dGFibGU+PHRhYmxlIHdp ZHRoPScxMDAlJyBzdHls WK2qUy8sKUSpUAFd bGxh (more content not included)... [facility] Consent for Procedure/Surger yon 12-16-2020 Consent for Procedure/Surgery [id number] 28#1.00CD:127 [facility] Formson 12-16-2020 Forms [id number]# 1.00CD:127 [facility] Lab Reportson 12-16-2020 Lab Reports [id number]# 1.00CD:127 Normal [facility] Physician Referralon 021 Physician Referral [id number] #1.00CD:127 Normal [facility] RAD - MISCon 12-16-2020 RAD - MISC [id number] 52#1.00CD:127 Normal [facility] RAD - Ultrasound Reporton RAD - Ultrasound Report [id number] #1.00CD:127 Normal [facility] Ambulatory Clinical Summaryo n 12-15-2020 Ambulatory Clinical Summary {[id number]-dc-4 [id number]-[id number]- c3-f8-10}CD:[id number] [facility] Patient Educationon 12-16-19 Patient Education Urology Hematuria, [...] these instructions at home: Medicines ? Take chdp-zfp-rqrvpqm and prescription medicines only as told by [...] the blood stops without treatment. ? Take rndj-qro-nhviwbx and prescription medicines only as told by your health care provider. ? Drink enough fluid to keep your urine clear or pale yellow. This information is not intended to replace advice given to you by your health care provider. Make sure you discuss any questions you have with your health care provider. Document Released: 06/19/2006 Document Revised: 11/13/2019 Document Reviewed: 07/22/2017 [employer] Patient Education ? 2019 [employer]. [facility] Urology Office/Clinic Noteon 12-15-2020 Urology Office/Clinic [...] The Urethra was dilated to: _18- 30 Tristanian with sounds. Specimens Removed: None Removal: Cystoscope [...] URL [facility] [address], [place] [address] [phone] Additional Instructions: f/u PRN Patient Education Hematuria, [...] 50,000 intl units (1.25 mg) oral capsule, 05216 International_Unit= 1 cap(s), Monday Zioptan 0.0015% ophthalmic solution Allergies erythromycin (Anaphylactic reaction) penicillin (Hives) Social History Alco (more content not included)... [facility] Comment on above: Result Comment: Elec tronically Signed By: Marcos KWON MD\.br\Date and Time Signed: 12/15/20 15:58 EDT\.br\Electronically Co-Signed By: Donna Hartley\.br\Date and Time Co-Signed: 12/15/20 15:56 EDT Reminderson 12-14-2020 Reminders - From: Augusta Singh To: EU - Clinical; Sent: 12/11/2020 13:29:41 EDT Show up: 12/14/2020 13:29:00 EDT Subject: Urine culture Reminder/Recall Urine Culture PRW reviewed positive culture. [facility] C Urineon 12-13-2020 Bacteria identified [...] Locations R1: This test was performed at: [facility], [address] [place] [address], [address]- , [place], [facility] Comment on above: Performed By: #### 2 [id number] ####[facility] [id number] [id number] Ambulatory Clinical Summaryo n 12-11-2020 Ambulatory Clinical Summary {[id number]-8g-t2-pb-d3- 6c-b8-cc}CD:[id number] [facility] Ambulatory Clinical Summary {[id number]-[id number]-6l-8d- 13-29-0f}CD:[id number] [facility] Ambulatory Clinical Summary {[id number] [id number]-29-14-84-6t-2b- c5-e6-1f}CD:934156 [facility] Patient Educationon 12-12-19 Patient Education Urology Hematuria, [...] these instructions at home: Medicines ? Take qwng-dyn-wjrxcbu and prescription medicines only as told by [...] the blood stops without treatment. ? Take rfnf-get-awewnzq and prescription medicines only as told by your health care provider. ? Drink enough fluid to keep your urine clear or pale yellow. This information is not intended to replace advice given to you by your health care provider. Make sure you discuss any questions you have with your health care provider. Document Released: 06/19/2006 Document Revised: 11/13/2019 Document Reviewed: 07/22/2017 [employer] Patient Education ? 2019 [employer]. 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 Jenkins due to Hematuria. Pt states that since the End of October she has been feeling a slight squeeze, no pain associated with this. Pt had a Renal US done at [facility]. Pt states that she has a [...] VIGIL, Marcos Abreu, URL [address] [place] [address]- [phone] Additional Instructions: Patient Education Hematuria, Adult I, [...] Tab amLOD (more content not included)... [facility] Comment on above: Result Comment: Elec tronically Signed By: Marcos KWON MD\.br\Date and Time Signed: 12/11/20 11:17 EDT\.br\Electronically Co-Signed By: Regla Pyle MA\.br\Date and Time Co-Signed: 12/11/20 11:12 EDT Lab Reportson 11-16-2020 Lab Reports [id number] #1.00CD:127 [facility] Lab Reports [id number] #1.00CD:127 [facility] RAD - Ultrasound Reporton RAD - Ultrasound Report [id number] #1.00CD:127 [facility] IntraOperative Documentson 07-12-2019 IntraOperative Documents [id number] 3#1.00CD:127 [facility] Message from Medicareon Message from Medicare [id number] 10 [id number]#1 .00CD:127 [facility] Coding Summary.on 05-06-2020 Coding Summary. CODING DATE: 05/06/2020 FINAL [facility] STATUS: Home (Routine DC) PAYOR: Medicare [...] PROC APC STAT DESCRIPTION DOCTOR NAME DATE 40287 5183 J1 Arthroscopy, knee, David Talamantes DO 05/01/2020 surgical; with meniscectomy (medial OR lateral, including any meniscal shaving) including debridement/shaving of articular cartilage (chondroplasty), same or separate compartment(s), when performed LT Left side (used to identify procedures performed on the left side of the body) 00692 Anesthesia for open or Gurmeet Aldridge Jr, [...] Revised Date Saved: 05/06/2020 11:55 am [facility] Insurance Correspondence Off iceon 05-05-2020 Insurance Correspondence Office [id number] 5#1.00CD:127 [facility] Main OR Intraoperative Recor don 05-05-2020 Main OR Intraoperative Record IntraOp Document Type FT Summary Primary Physician: David Talamantes DO Finalized Date/Time: 05/05/20 14:09:46 Pt. Name: CLAUDIA ESTRELLA/Sex: 1950 Female Med Rec #: [id number] Physician: David Talamantes DO Financial #: [id number] Pt. Type: O Room/Bed: 17/ Admit/Disch: 05/01/20 11:43:14 - 05/04/20 12:35:00 Institution: [...] Role Performed Anesthesiologist of Surgeon - Primary Systems Integration Analyst - Primary Record Time In 05/01/20 14:26:00 05/01/20 14:39:00 05/01/20 14:26:00 Time Out 05/01/20 15:04:00 05/01/20 15:04:00 05/01/20 15:04:00 Procedure KNEE ARTHROSCOPY(Left) KNEE ARTHROSCOPY(Left) KNEE ARTHROSCOPY(Left) Comments Last Modified By: Edgar WU, Viky Hernández RN, Viky Krueger RN 05/01/20 15:04:35 05/01/20 15:04:35 05/01/20 15:04:35 Entry 4 Entry 5 Entry 6 Case Attendee Maxim WU, Augusta Castro BINDERY OPERATOR, Leatha Flowers RN, CNOR, Cee Role Performed Systems Integration Analyst - Primary Scrub - Primary Systems Integration Analyst - Relief Time In 05/01/20 14:26:00 05/01/20 14:26:00 05/01/20 14:57:00 Time Out 05/01/20 15:04:00 05/01/20 15:04:00 05/01/20 15:04:00 Procedure KNEE ARTHROSCOPY(Left) KNEE ARTHROSCOPY(Left) KNEE ARTHROSCOPY(Left) Comments orientation Last Modified By: Viky Hernández RN, RN, Emily A Coy RN, Emily A 05/01/20 15:04:35 05/01/20 15:04:35 05/01/20 15:04:35 Perioperative [...] and tissue Entry 1 Skin Integrity Intact, [place], Warm, and Skin Abnormality No Dry Outcomes Met? Yes Last Modified By: Viky Hernández RN 05/01/20 14:46:48 Post-Care Text: The patient is free from signs and symptoms of injury caused by extraneous objects Patient Positioning FT Pre-Care Text: Identifies physical alterations that require additional precautions for procedure-specific positioning, verifies presence of prosthetics or corrective (more content not included)... [facility] Progress Note-Physicianon Progress Note-Physician Patient: [...] volume (mL): 1,000, 68.3 kg, 1.64, m2 Ojibwa 5/325 Tab: 1 tab(s), Tab, Oral, q4hr [...] date 04/28/20 18:05:00 EDT Documented Medications Documented Nileshagllonnie GarciasikPen: 15 unit(s), SubCutaneous, TID, High blood [...] Problems DM kidney disease / SNOMED CT 242009411 / Confirmed PVD (peripheral vascular disease) / SNOMED CT 7344000606 / Confirmed MMT (medial meniscus tear) / SNOMED CT 972776730 / Confirmed Resolved: Ocular herpes zoster / SNOMED CT 428248243 Resolved: HTN (hypertension) / SNOMED CT 3780421948 Canceled: Diabetes / SNOMED CT 994640486 Histories Past Medical History: No active or resolved past medical history items have been selected or recorded. Family History: No family history items have been selected or recorded. Procedure history: Right eye cataract extraction and insertion of intraocular lens (3110001586) on 11/19/2019 at 69 Years. Cataract extraction and insertion of intraocular lens (7928349966) on 11/06/2019 at 69 Years. Comments: 11/06/2019 14:13 EDT - Fabian WU, Loreto Abreu Left Appendectomy (171760285). section x2 (07017021). Cholecystectomy (29363937). Anesthesia for laparoscopic procedure on lower abdomen (79949253). Cheilectomy of tarsal foot (5292620849). Social History Social & Psychosocial Habits Alcohol [...] results Radiology results ECG interpretation Condition Plan [place] Society of Anesthesiologists (ASA) physical status classification: Class III. Anesthetic Preoperative (more content not included)... [facility] Comment on above: Result Comment: [...] Problems DM kidney disease / SNOMED CT 487621281 / Confirmed PVD (peripheral vascular disease) / SNOMED CT 7730237976 / Confirmed MMT (medial meniscus tear) / SNOMED CT 324885169 / Confirmed Resolved: Ocular herpes zoster / SNOMED CT 830597226 Resolved: HTN (hypertension) / SNOMED CT 0474247746 Canceled: Diabetes / SNOMED CT 320870890 Physical Examination Vital Signs 05/01/2020 16:58 EDT [...] F/U Plan Transfer/ Discharge: Condition stable. [facility] Comment on above: Result Comment: Elec tronically Signed By: Luis Carlos Gomes DO, Gurmeet Mcdonough\.br\Date and Time Signed: 05/05/20 08:22 EST Capillary Glucose POCon Glucose [Mass/Vol] 149 mg/dL High 55-99 [facility] Comment on above: Result Comment: Monty pelayo RN/ Performed By: #### 2 [id number] #### [facility] [address] [place] [address] Glucose [Mass/Vol] 127 mg/dL High 55-99 [facility] Comment on above: Result Comment: Monty pelayo RN/ Performed By: #### 2 [id number] #### [facility] [address] 11635[address] Consent for Anesthesiaon Consent for Anesthesia [id number] #1.00CD:127 [facility] Discharge Instructionson Discharge Instructions [id number] 9#1.00CD:127 [facility] Inpatient Clinical Summaryon 05-04-2020 Inpatient Clinical Summary [address] [address] Clinical Summary Person Information: Name: CLAUDIA ESTRELLA Age: 70 Years : 1950 Sex: Female PCP: JOHN PERDOMO DO Marital Status: Race: White Ethnicity: Non- or Language: Canadian Visit Id: Visit Reason: LEFT KNEE BONE BRUISE, MEDIAL MENISCUS TEAR, EFFUSION Speciality: Acuity: Enc Type: Observation Med Service: Surgery Arrival: 05/01/2020 11:43:14 Discharge: Dispo Type: Address: [facility] KEI HERNANDEZ [facility] Provider Notes: Diagnosis: 1:Other chest pain; 2:Hypertension; [...] up: With: Address: When: Follow up with Teenage Babysitter Within 1 week With: Address: When: JOHN PERDOMO [facility] [place] [address] Business (1) With: Address: When: David Talamantes [address] [place] [address] Business (1) Comments: Keep scheduled appointment Patient Education Information: Post Op Patient Instructions - FT (Custom); Knee Cryocuff Patient Instructions - FT (Custom); Talamantes - Knee Arthroscopy (Custom) (CUSTOM) [facility] Inpatient Patient Summaryon 05-04-2020 Inpatient Patient Summary [address] [place] [id number] Patient Discharge Instructions PERSON INFORMATION Name: CLAUDIA [...] up: With: Address: When: Follow up with Teenage Babysitter Within 1 week With: Address: When: JOHN PERDOMO [address] [place] [address] Business (1) With: Address: When: David Talamantes [address] [place] [address] Business (1) Comments: Keep scheduled appointment [...] DURING YOUR HOSPITAL STAY New Medications [id number], [address] [place], [place] [id number], [phone] atorvastatin (Lipitor 20 mg Tab) 1 Tablets [...] amlodipine (amLO (more content not included)... [facility] Interdisciplinary Note - PTo n 05-04-2020 Interdisciplinary Note - PT PT Screen performed. Pt was able to stand and ambulate throughout room without difficulty and without an AD. Pt also demos appropriate ROM to knee. Would recommend to f/u with Ortho to determine if therapy is needed in the future, but no PT needed at this time [facility] IntraOperative Documentson 1 07-04-2019 IntraOperative Documents [id number] #1.00CD:127 [facility] IntraOperative Documents [id number] #1.00CD:127 [facility] Message from Medicareon Message from Medicare [id number] 11 [id number] 5#1.00CD:127 [facility] Monitor Recordon 05-04-2020 Monitor Record [id number] 6#1.00CD:127 [facility] Monitor Record [id number] 5#1.00CD:127 [facility] Monitor Record [id number] 7#1.00CD:127 [facility] Patient Education - Texton 1 07-04-2019 Patient Education - Text (Inserted Image . Unable to display) [place], [place] [facility] DISCHARGE INSTRUCTIONS: KNEE ARTHROSCOPY [...] your appointment. David Talamantes, DO [facility] [address] [place], [place] [address] Reviewed: 10-08 [facility] Preoperative Documentson Preoperative Documents [id number] #1.00CD:127 [facility] Preoperative Documents [id number] 110 [id number] #1.00CD:127 [facility] Prescriptions/Work Noteson 1 07-04-2019 Prescriptions/Work Notes [id number] #1.00CD:127 [facility] Capillary Glucose POCon Glucose [Mass/Vol] 183 mg/dL High 55-99 [facility] Comment on above: Performed By: #### 2 [id number] #### [facility] [address] [place] [address] Glucose [Mass/Vol] 155 mg/dL High 55-99 [facility] Comment on above: Performed By: #### 2 [id number] #### [facility] [address] [place] [address] Glucose [Mass/Vol] 113 mg/dL High 55-99 [facility] Comment on above: Result Comment: Monty MEDEIROS Performed By: #### 2 [id number] ####[facility] [address] [place] [address] Glucose [Mass/Vol] 112 mg/dL High 55-99 [facility] Comment on above: Performed By: #### 2 [id number] #### [facility] [address] [place] [address] Glucose [Mass/Vol] 85 mg/dL Normal 55-99 [facility] Comment on above: Result Comment: Monty MEDEIROS Performed By: #### 2 [id number] #### [facility] [address] [place] [address] Glucose [Mass/Vol] 59 mg/dL Normal 55-99 [facility] Comment on above: Result Comment: Monty MEDEIROS Performed By: #### 2 [id number] #### [facility] [address] [place] [address] Consultation Noteon 05-03-20 Consultation Note HOSPITAL REGULATIONS: [...] left knee and elevate. Eh Carter DO [facility] Dictated: 05/02/2020 #[id number] Typed: 05/02/2020 #[id number] cc: DO David Nieto D.O. [facility] Comment on above: Result Comment: Elec tronically Signed By: Eh Carter DO\.br\Date and Time Signed: 05/03/20 10:27 EST Monitor Recordon 05-03-2020 Monitor Record [id number] 1#1.00CD:127 [facility] Monitor Record [id number] 6#1.00CD:127 [facility] Operative Reporton 0 Operative Report Date of [...] The patient's condition satisfactory David Talamantes D.O. [facility] Dictated: 05/01/2020 #[id number] Typed: 05/01/2020 #[id number] cc: Randa Lanier D.O. [facility] Comment on above: Result Comment: Elec [...] mg/dL High (05/03/20 12:18:00) POC Device SN: [id number] (05/03/20 12:18:00) POC Username: JOSESITO BROWN (05/03/20 [...] 0.4 mg= 1 tab(s), SubLingual, q5min, PRN [place] 5/325 Tab, 1 tab(s), Oral, q4hr, PRN [...] ophthalmic emulsion, 1 drop(s), Eye-Both, BID [facility] Comment on above: Result Comment: [...] mg/dL High (05/03/20 07:32:00) POC Device SN: [id number] (05/03/20 07:32:00) POC Username: POC Username (05/03/20 [...] to obtain her records from her primary serging machine operator automatic once 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 Continue [...] PRN L (more content not included)... [facility] Comment on above: Result Comment: Elec tronically Signed By: Eleuterio VIGIL, John Olson\.br\Date and Time Signed: 05/03/20 07:45 EST Capillary Glucose POCon 10-3 Glucose [Mass/Vol] 212 mg/dL High 55-99 [facility] Comment on above: Performed By: #### 2 [id number] #### [facility] [address] [place] [address] Glucose [Mass/Vol] 138 mg/dL High 55-99 [facility] Comment on above: Performed By: #### 2 [id number] #### [facility] [address] [place] [address] Glucose [Mass/Vol] 139 mg/dL High 55-99 [facility] Comment on above: Performed By: #### 2 [id number] #### [facility] [address] [place] [address] Glucose [Mass/Vol] 105 mg/dL High 55-99 [facility] Comment on above: Performed By: #### 2 [id number] #### [facility] [address] [place] [address] Glucose [Mass/Vol] 233 mg/dL High 55-99 [facility] Comment on above: Result Comment: Monty pelayo RN/ Performed By: #### 2 [id number] ####[facility] [address] [place] [address] Lipid Panelon 05-02-2020 Cholesterol [Mass/Vol] 160 mg/dL Normal 120-200 [facility] Comment on above: Performed By: #### 2 [id number] #### [facility] [address] [facility] [place] [address] Cholesterol in HDL [Mass/Vol] 49 mg/dL Invalid Interpretation Code [facility] Comment on above: Result Comment: HDL > or equal to 60 mg/dL: Low cardiovascular risk HDL < 40 mg/dL : High cardiovascular risk Performed By: #### 2 [id number] #### [facility] [address] [place] [address] Cholesterol in LDL [Mass/Vol] 98 mg/dL Normal <=129 [facility] Comment on above: Performed By: #### 2 [id number] #### [facility] [address] [place] [address] Cholesterol in VLDL [Mass/Vol] 12 mg/dL Normal 7-40 [facility] Comment on above: Performed By: #### 2 [id number] #### [facility] [address] [place] [address] Triglyceride [Mass/Vol] 61 mg/dL Normal <=149 F [facility] Comment on above: Performed By: #### 2 [id number] #### [facility] [address] [place] [address] Monitor Recordon 05-02-2020 Monitor Record [id number] 2#1.00CD:127 [facility] Progress Note-Physicianon Progress Note-Physician Assessment/Plan [...] (05/01/20 18:27:00) (more content not included)... [facility] Comment on above: Result Comment: Elec tronically Signed By: JUN VIGIL, Nhung\.br\Date and Time Signed: 05/02/20 10:00 EDT Troponin 3 Hr.on 05-02-2020 Troponin I.cardiac [Mass/Vol] 3.60 pg/mL Low 10.10-27.10 [facility] Comment on above: Result Comment: The 95% CI (Confidence Interval) PPV (Positive Predictive Value) for myocardial infarction in females is 38 pg/mL, in males 51 pg/mL. The results should be used in conjunction with clinical conditions of myocardial infarction. (Access High Sensitivity Troponin I Instructions For Use, LinkagoalJanuary 2018) Performed By: #### 2 [id number] #### [facility] [address] [place] [address] Troponin 6 Hr.on 05-02-2020 Troponin I.cardiac [Mass/Vol] 3.90 pg/mL Low 10.10-27.10 [facility] Comment on above: Result Comment: The 95% CI (Confidence Interval) PPV (Positive Predictive Value) for myocardial infarction in females is 38 pg/mL, in males 51 pg/mL. The results should be used in conjunction with clinical conditions of myocardial infarction. (Access High Sensitivity Troponin I Instructions For Use, [employer], January 2018) Performed By: #### 2 [id number] #### [facility] [address] [place] [address] Troponin 9 Hr.on 05-02-2020 Troponin I.cardiac [Mass/Vol] 5.10 pg/mL Low 10.10-27.10 [facility] Comment on above: Result Comment: The 95% CI (Confidence Interval) PPV (Positive Predictive Value) for myocardial infarction in females is 38 pg/mL, in males 51 pg/mL. The results should be used in conjunction with clinical conditions of myocardial infarction. (Access High Sensitivity Troponin I Instructions For Use, [employer], January 2018) Performed By: #### 2 [id number] #### [facility] [address] [id number] US Carotid Duplex Bilateralo n 05-02-2020 US [...] ECA (cm/sec): 199/15 Vert. Antegrade Yes [facility] Auto Diffon 05-01-2020 Basophils/100 WBC (Bld) 0.4 % Normal 0.0-2.0 F [facility] Comment on above: Order Comment: Order Added by Discern Expert. Performed By: #### 2 [id number], [id number], [id number], [id number] #### [facility] [address] [place] [address] Basophils/Leukocytes Auto (Bld) [Pure # fraction] 0.0 E9/L Normal 0.0-0.2 [facility] Comment on above: Order Comment: Order Added by Discern Expert. Performed By: #### 2 [id number], [id number], 2441484, 2078660 #### [facility] [address] [place] [address] Eosinophils/100 WBC (Bld) 1.2 % Normal 0.0-8.0 [facility] Comment on above: Order Comment: Order Added by Discern Expert. Performed By: #### 2 797997, [id number], [id number], [id number] #### [facility] [address] [place] [address] Eosinophils/Leukocytes Auto (Bld) [Pure # fraction] 0.1 E9/L Normal 0.0-0.5 [facility] Comment on above: Order Comment: Order Added by Discern Expert. Performed By: #### 2 059159, [id number], 4826384, [id number] #### [facility] [address] [place] [address] Lymphocytes/100 WBC (Bld) 9.7 % Low 14.0-50.0 [facility] Comment on above: Order Comment: Order Added by Discern Expert. Performed By: #### 2 276124, [id number], 1325460, 7471312 #### [facility] [address] [place] [address] Lymphocytes/Leukocytes Auto (Bld) [Pure # fraction] 1.0 E9/L Normal 1.0-4.0 [facility] Comment on above: Order Comment: Order Added by Discern Expert. Performed By: #### 2 372056, [id number], 0858637, 8258050 #### [facility] [address] [place] [address] Monocytes/100 WBC (Bld) 4.2 % Normal 4.0-14.0 F [facility] Comment on above: Order Comment: Order Added by Discern Expert. Performed By: #### 2 540334, [id number], 9726545, [id number] #### [facility] [address] [place] [address] Monocytes/Leukocytes Auto (Bld) [Pure # fraction] 0.4 E9/L Normal 0.2-1.0 [facility] Comment on above: Order Comment: Order Added by Discern Expert. Performed By: #### 2 415427, 24739255, 1087103, 6001894 #### [facility] [address] [place] [address] Neutrophils/100 WBC (Bld) 84.5 % High 36.0-75.0 [facility] Comment on above: Order Comment: Order Added by Discern Expert. Performed By: #### 2 987406, [id number], 8620100, 4885039 #### [facility] [address] [place] [address] Neutrophils/Leukocytes Auto (Bld) [Pure # fraction] 8.9 E9/L High 2.0-7.5 [facility] Comment on above: Order Comment: Order Added by Discern Expert. Performed By: #### 2 522390, 09367127, 8627307, 0205999 #### [facility] [address] [place] [address] BMPon 05-01-2020 Calcium [Mass/Vol] 8.9 mg/dL Normal 8.9-11.1 [facility] Comment on above: Performed By: #### 2 597726, [id number], 4722796, 4808643 #### [facility] [address] [place] [address] Anion gap [Moles/Vol] 10 mmol/L Normal 6-16 [facility] [facility] Comment on above: Performed By: #### 2 047574, [id number], 1066271, 3200811 #### [facility] [address] [place] [address] Chloride [Moles/Vol] 103 mmol/L Normal 101-111 [facility] Comment on above: Performed By: #### 2 516346, 15755534, 2090362, 6748982 #### [facility] [address] [place] [address] CO2 [Moles/Vol] 24 mmol/L Normal 21-31 [facility] Comment on above: Performed By: #### 2 356168, 77923616, 1110366, 8286562 #### [facility] [address] [place] [address] Creatinine [Mass/Vol] 1.6 mg/dL High 0.5-1.3 [facility] Comment on above: Performed By: #### 2 654229, 23354021, 8412158, 7597945 #### [facility] [address] [place] [address] Glucose [Mass/Vol] 167 mg/dL Normal 55-199 [facility] Comment on above: Result Comment: If t his glucose result represents a fasting glucose, interpretation should refer to the following reference range: 55-99 mg/dL Performed By: #### 2 136139, 89036264, 3962012, 7225535 #### [facility] [address] [place] [address] Potassium [Moles/Vol] 3.9 mmol/L Normal 3.5-5.3 [facility] Comment on above: Performed By: #### 2 256088, 57412186, 3927110, 5276058 #### [facility] [address] [place] [address] Sodium [Moles/Vol] 133 mmol/L Low 135-145 [facility] Comment on above: Performed By: #### 2 662310, 86997871, 7324678, 1550558 #### [facility] [address] [place] [address] Urea nitrogen [Mass/Vol] 34 mg/dL High 5-21 [facility] Comment on above: Performed By: #### 2 131999, 74231125, 8524597, 6947993 #### [facility] [address] [place] [address] Urea nitrogen/Creatinine [Mass ratio] 21 No Units High 10-20 [facility] Comment on above: Performed By: #### 2 746534, 35951748, 7869628, 2752900 #### [facility] [address] [place] [address] CBC w/ Auto Diffon 30-202 0 Erythrocyte distribution width (RBC) [Ratio] 13.0 % Normal 10.9-14.2 [facility] Comment on above: Performed By: #### 2 700305, 54242216, 5288767, 7924145 #### [facility] [address] [place] [address] Hematocrit (Bld) [Volume fraction] 32.4 % Low 34.0-46.0 [facility] Comment on above: Performed By: #### 2 240570, 61921101, 5464702, 2759813 #### [facility] [address] [place] [address] Hemoglobin (Bld) [Mass/Vol] 11.2 g/dL Low 12.0-16.0 [facility] Comment on above: Performed By: #### 2 471578, 67698718, 0479525, 7269723 #### [facility] [address] [place] [address] MCH (RBC) [Entitic mass] 29.6 pg Normal 27.0-34.0 [facility] Comment on above: Performed By: #### 2 794709, 71929475, 5562682, 6090002 #### [facility] [address] [place] [address] MCHC (RBC) [Mass/Vol] 34.6 g/dL Normal 31.4-36.0 [facility] Comment on above: Performed By: #### 2 882296, 09442920, 1120800, 1711150 #### [facility] [address] [place] [address] MCV (RBC) [Entitic vol] 85.5 fL Normal 80.0-100.0 [facility] Comment on above: Performed By: #### 2 000163, 86659306, 1981763, 5415391 #### [facility] [address] [place] [address] Platelet mean volume (Bld) [Entitic vol] 8.4 fL Normal 6.4-10.8 [facility] Comment on above: Performed By: #### 2 627916, 22646687, 5474399, 6730668 #### [facility] [address] [place] [address] Platelets (Bld) [#/Vol] 242.0 E9/L Normal 150.0-500.0 [facility] Comment on above: Performed By: #### 2 739008, 60337824, 4534770, 2111758 #### [facility] [address] [place] [address] RBC (Bld) [#/Vol] 3.8 E12/L Low 4.3-5.9 [facility] Comment on above: Performed By: #### 2 563880, 22499406, 9424317, 1358356 #### [facility] [address] [place] [address] WBC corrected for nucl RBC Auto (Bld) [#/Vol] 10.5 E9/L Normal 4.0-11.0 [facility] Comment on above: Performed By: #### 2 516147, 38843794, 1752228, 0178497 #### [facility] [address] [place] [address] Capillary Glucose POCon 04-04 Glucose [Mass/Vol] 84 mg/dL Normal 55-99 [facility] Comment on above: Result Comment: Repe at Test Performed By: #### 2 [id number] #### [facility] [address] [place] [address] Glucose [Mass/Vol] 88 mg/dL Normal 55-99 [facility] Comment on above: Result Comment: Repe at Test Performed By: #### 2 [id number] #### [facility] [address] [place] [address] Coding Summary.on 05-01-2020 Coding Summary. CODING DATE: 05/01/2020 FINAL [facility] STATUS: Home (Routine DC) PAYOR: Medicare [...] CphT Date Saved: 05/01/2020 08:36 am Normal [facility] Coding Summary. CODING DATE: 04/25/2020 FINAL [facility] STATUS: Home (Routine DC) PAYOR: Medicare [...] CphT Date Saved: 04/25/2020 04:17 pm Normal [facility] Consent for Treatmenton 04-04 Consent for Treatment [id number] #1.00CD:127 [facility] Consent for Treatment [id number] #1.00CD:127 [facility] H&P Updateon 05-01-2020 H&P Update [id number] #1.00CD:127 [facility] Main OR PACU I Recordon 04-04 Main OR PACU I Record PACU Phase I Document Type FT Summary Primary Physician: David Talamantes DO Finalized Date/Time: 05/01/20 18:04:55 Pt. Name: CLAUDIA ESTRELLA/Sex: 1950 Female Med Rec #: [id number] Physician: David Talamantes DO Financial #: [id number] Pt. Type: A Room/Bed: [place] [address] Admit/Disch: 05/01/20 11:43:14 - Institution: Case Times [...] By: Ju Bates RN 05/01/20 18:04 Normal [facility] Main OR PACU II Recordon Main OR PACU II Record PACU Phase II Document Type FT Summary Primary Physician: David Talamantes DO Finalized Date/Time: 05/01/20 20:09:08 Pt. Name: CLAUDIA ESTRELLA/Sex: 1950 Female Med Rec #: [id number] Physician: David Talamantes DO Financial #: [id number] Pt. Type: O Room/Bed: [place] [address] Admit/Disch: 05/01/20 11:43:14 - Institution: Case Times [...] Signed By: Yessy Curran RN 05/01/20 20:09 [facility] Main OR Preoperative Recordo n 05-01-2020 Main OR Preoperative Record PreOp Document Type FT Summary Primary Physician: David Talamantes DO Finalized Date/Time: 05/01/20 14:45:06 Pt. Name: CLAUDIA ESTRELLA/Sex: 1950 Female Med Rec #: [id number] Physician: David Talamantes DO Financial #: [id number] Pt. Type: A Room/Bed: [place] [address] Admit/Disch: 05/01/20 11:43:14 - Institution: Case Times [...] By: Viky Hernández RN 05/01/20 14:45 Normal [facility] Monitor Recordon 05-01-2020 Monitor Record [id number] 0#1.00CD:127 Normal [facility] Monitor Record [id number] 8#1.00CD:127 [facility] Outside Radiologyon 05-01-20 20 Outside Radiology [id number] #1.00CD:127 [facility] Outside Recordson 05-01-2020 Outside Records [id number] #1.00CD:127 Normal [facility] Progress Note-Nurseon 2019 Progress Note-Nurse [...] 1829--Attempted to call Dr. Talamantes--call went to [employer] 1834--This nurse spoke with Dr. Carter (paperhanger contractor physician), informed Dr. Carter reason for admission and patient's room number. Dr. Aldridge at bedside at 170--Physician looked at patient EKG strip that was printed. Normal [facility] Progress Note-Nurse 1528: pt. medicated [...] dtr. also at bedside and updated. Normal [facility] Troponin 0 Hr.on 05-01-2020 Troponin I.cardiac [Mass/Vol] 4.10 pg/mL Low 10.10-27.10 [facility] Comment on above: Result Comment: The 95% CI (Confidence Interval) PPV (Positive Predictive Value) for myocardial infarction in females is 38 pg/mL, in males 51 pg/mL. The results should be used in conjunction with clinical conditions of myocardial infarction. (Access High Sensitivity Troponin I Instructions For Use, Wilfrido Jose, January 2018) Performed By: #### 2 [id number] #### [facility] [address] [place] [address] eGFRon 05-01-2020 GFR/1.73 sq M.predicted among blacks MDRD (S/P/Bld) [Vol rate/Area] 39 mL/min/1.73 m2 Low >=59 [facility] Comment on above: Order Comment: Order added by Discern Expert. Result Comment: eGFR is race adjusted. AA=. Performed By: #### 2 335856, 70013204, 7404016, 4208459 #### [facility] [address] [place] [address] GFR/1.73 sq M.predicted among non-blacks MDRD (S/P/Bld) [Vol rate/Area] 32 mL/min/1.73 m2 Low >=59 [facility] Comment on above: Order Comment: Order added by Discern Expert. Result Comment: Engineer First Assistant jayden kidney disease could be indicated at eGFR's of less than 60 mL/min/1.73m2. Kidney failure is indicated at less than 15 mL/min/1.73m2. Performed By: #### 2 926447, 75259467, 6323155, 7330009 #### [facility] [address] [place] [address] Coding Summary.on 04-28-2020 Coding Summary. CODING DATE: 04/28/2020 FINAL [facility] STATUS: Home (Routine DC) PAYOR: Medicare [...] CphT Date Saved: 04/28/2020 09:19 am Normal [facility] Outpatient Surgery Discharge Instructionon 04-28-2020 Outpatient Surgery Discharge Instruction [place] [id number] Patient Discharge Instructions PERSON INFORMATION Name: CLAUDIA [...] Follow up: With: Address: When: David Talamantes [address] [place], [place] [id number] [facility] (1) Comments: Keep scheduled appointment Type Location Start [facility] Surgical Services 05/01/2020 2:15 PM 05/01/2020 2:55 PM Confirmed Pharmacy Information: Thank you for choosing [facility] HERE ARE THE MEDICATION CHANGES THAT [...] tab Oral Daily. PATIENT EDUCATION INFORMATION Instructions: [place], [place] [facility] DISCHARGE INSTRUCTIONS: KNEE ARTHROSCOPY [...] result of (more content not included)... Normal [facility] Consent for Procedure/Surger yon 04-27-2020 Consent for Procedure/Surgery [id number]#1.00CD:127 Normal [facility] Outside Recordson 04-27-2020 Outside Records [id number] 9#1.00CD:127 Normal [facility] Priority Order-Trina 2019 Priority Order-STAT Comment Invalid Interpretation Code [facility] Comment on above: Result Comment: Rece ived Performed at: [facility] [address] [place], [place] [id number] MD Bladimir Briones Performed By: #### 2 [id number] #### [facility] [address] [place] [address] SARS-CoV-2, NAAon 04-25-2020 SARS-CoV-2 (COVID-19) RNA JAYASHREE+probe Ql (Resp) Not detected Invalid Interpretation Code Not Detected [facility] Comment on above: Result Comment: This nucleic acid amplification test was developed and its performance characteristics determined by [employer]. Nucleic acid amplification tests include PCR and [...] detected) result in this assay. Performed at: [facility] [address] [place] [address] [place] [id number] MD Bladimir Briones Performed By: #### 2 [id number] #### [facility] [address] [place] [address] XR Chest 2 Viewson 0 XR Chest [...] M.D. Transcribed by: LUDIN Technologist: [place] Normal [facility] BUNon 04-24-2020 Urea nitrogen [Mass/Vol] 36 mg/dL High 5-21 [facility] Comment on above: Performed By: #### 1 0281310, 8478132, 0011487, 4387768, 5771763, 2847122 ####[facility] [address] [place] [address] CBC w/Indiceson 04-24-2020 Erythrocyte distribution width (RBC) [Ratio] 13.0 % Normal 10.9-14.2 [facility] Comment on above: Performed By: #### 1 8944118, 6509493, 1707141, 9891610, 5358155, 6054340 ####[facility] [address] [place] [address] Hematocrit (Bld) [Volume fraction] 34.1 % Normal 34.0-46.0 [facility] Comment on above: Performed By: #### 1 1610623, 5473986, 7565111, 5625763, 9864949, 5023391 ####[facility] [address] [place] [address] Hemoglobin (Bld) [Mass/Vol] 11.6 g/dL Low 12.0-16.0 [facility] Comment on above: Performed By: #### 1 8798475, 3271799, 8305387, 8825564, 4448068, 9478783 ####[facility] [address] [place] [address] MCH (RBC) [Entitic mass] 29.5 pg Normal 27.0-34.0 [facility] Comment on above: Performed By: #### 1 5183215, 6703951, 8787838, 2775730, 8554737, 4155108 ####[place] [address] [place] [address] MCHC (RBC) [Mass/Vol] 34.1 g/dL Normal 31.4-36.0 [facility] Comment on above: Performed By: #### 1 9061311, 4841618, 0882603, 4854810, 2939299, 1659113 ####[address] [place] [address] MCV (RBC) [Entitic vol] 86.5 fL Normal 80.0-100.0 F [facility] Comment on above: Performed By: #### 1 4505966, 2823050, 6980988, 4691799, 1984523, 5631840 ####[address] [address] Platelet mean volume (Bld) [Entitic vol] 9.4 fL Normal 6.4-10.8 [facility] Comment on above: Performed By: #### 1 0240467, 8216291, 3936169, 7370422, 6029974, 8354852 ####[address] [address] Platelets (Bld) [#/Vol] 246.0 E9/L Normal 150.0-500.0 [facility] Comment on above: Performed By: #### 1 8640458, 9130504, 2111542, 6474692, 0887848, 0079477 ####[address] [address] RBC (Bld) [#/Vol] 3.9 E12/L Low 4.3-5.9 [facility] Comment on above: Performed By: #### 1 7242625, 7441345, 5519305, 5425683, 3012552, 8539389 ####[address] [address] WBC corrected for nucl RBC Auto (Bld) [#/Vol] 10.0 E9/L Normal 4.0-11.0 [facility] Comment on above: Performed By: #### 1 5304652, 9256173, 7056394, 7671579, 5590814, 1494297 ####[facility] [address] [place] [address] Consent for Treatmenton 04-03 Consent for Treatment [id number] #1.00CD:127 Normal [facility] Creatinineon 04-24-2020 Creatinine [Mass/Vol] 1.6 mg/dL High 0.5-1.3 [facility] Comment on above: Performed By: #### 1 6912462, 9259299, 2485169, 6729848, 6547760, 1739464 ####[facility] [address] [place] [address] Glu Fastingon 04-24-2020 Glucose [Mass/Vol] 81 mg/dL Normal 55-99 [facility] Comment on above: Performed By: #### 1 0384256, 0268566, 7856409, 0773756, 0905890, 8682569 ####[facility] [address] [place] [address] Lyteson 04-24-2020 Anion gap [Moles/Vol] 13 mmol/L Normal 6-16 [facility] Comment on above: Performed By: #### 1 5561133, 8483661, 0266885, 0569621, 8133239, 9435843 ####[facility] [address] [place] [address] Chloride [Moles/Vol] 103 mmol/L Normal 101-111 [facility] Comment on above: Performed By: #### 1 9881395, 3313828, 6675921, 9079025, 4828392, 5015096 ####[facility] [address] [place] [address] CO2 [Moles/Vol] 26 mmol/L Normal 21-31 [facility] Comment on above: Performed By: #### 1 6040916, 1787429, 9243858, 0952596, 9873545, 8106404 ####[facility] [address] [place] [address] Potassium [Moles/Vol] 3.9 mmol/L Normal 3.5-5.3 [facility] Comment on above: Performed By: #### 1 0344821, 1090186, 5753574, 8720419, 2821438, 6195909 ####[facility] [address] [place] [address] Sodium [Moles/Vol] 138 mmol/L Normal 135-145 [facility] Comment on above: Performed By: #### 1 9418501, 1992746, 2530756, 1491836, 4899893, 6449143 ####[facility] [address] [place] [address] Physician Orderon 04-24-2020 Physician Order [id number] 3#1.00CD:127 Normal [facility] eGFRon 04-24-2020 GFR/1.73 sq M.predicted among blacks MDRD (S/P/Bld) [Vol rate/Area] 39 mL/min/1.73 m2 Low >=59 [facility] Comment on above: Order Comment: Order added by Discern Expert. Result Comment: eGFR is race adjusted. AA=. Performed By: #### 1 4224932, 3397246, 0774185, 9411571, 2310841, 7338785 ####[facility] [address] [place] [address] GFR/1.73 sq M.predicted among non-blacks MDRD (S/P/Bld) [Vol rate/Area] 32 mL/min/1.73 m2 Low >=59 [facility] Comment on above: Order Comment: Order added by Discern Expert. Result Comment: Engineer First Assistant jayden kidney disease could be indicated at eGFR's of less than 60 mL/min/1.73m2. Kidney failure is indicated at less than 15 mL/min/1.73m2. Performed By: #### 1 7423413, 6053533, 1214014, 4977737, 3663033, 4520020 ####[facility] [address] [place] [address] Physician Orderon 04-13-2020 Physician Order [id number] 5#1.00CD:127 Normal [facility] Physician Orderon 04-10-2020 Physician Order [id number] 3#1.00CD:127 Normal [facility] Vital Signs Date Time Vital Sign Value Performing Clinician Facility 01-29-2025 11:37-0400 Body height 147.32 cm John Perdomo DO Work Phone: [facility] 01-29-2025 11:37-0400 Body mass index (BMI) [Ratio] 26.5 kg/m2 John Perdomo DO Work Phone: [facility] 01-29-2025 11:37-0400 Body weight 57.6 kg John Perdomo DO Work Phone: [facility] 01-29-2025 11:37-0400 Diastolic blood pressure 50 mm[Hg] John Perdomo DO Work Phone: [facility] 01-29-2025 11:37-0400 Heart rate 72 /min John Perdomo DO Work Phone: [facility] 01-29-2025 11:37-0400 Respiratory rate 18 /min John Perdomo DO Work Phone: [facility] 01-29-2025 11:37-0400 SaO2% (BldA) [Mass fraction] 95 % John Perdomo DO Work Phone: [facility] 01-29-2025 11:37-0400 Systolic blood pressure 156 mm[Hg] John Perdomo DO Work Phone: [facility] 09-03-2024 15:36-0500 Body height 147.32 cm [facility] 09-03-2024 15:36-0500 Body mass index (BMI) [Ratio] 25.6 kg/m2 [facility] 09-03-2024 15:36-0500 Body temperature 99.3 [degF] [facility] 09-03-2024 15:36-0500 Body weight 55.56 kg [facility] 09-03-2024 15:36-0500 Diastolic blood pressure 66 mm[Hg] [facility] 09-03-2024 15:36-0500 Heart rate 73 /min [facility] 09-03-2024 15:36-0500 Respiratory rate 18 /min [facility] 09-03-2024 15:36-0500 SaO2% (BldA) [Mass fraction] 95 % [facility] 09-03-2024 15:36-0500 Systolic blood pressure 149 mm[Hg] [facility] 05-13-2024 15:30-0500 Body height 147.32 cm [facility] 05-13-2024 15:30-0500 Body mass index (BMI) [Ratio] 27.1 kg/m2 [facility] 05-13-2024 15:30-0500 Body temperature 97.5 [degF] [facility] 05-13-2024 15:30-0500 Body weight 58.96 kg [facility] 05-13-2024 15:30-0500 Diastolic blood pressure 74 mm[Hg] [facility] 05-13-2024 15:30-0500 Heart rate 72 /min [facility] 05-13-2024 15:30-0500 Respiratory rate 16 /min [facility] 05-13-2024 15:30-0500 SaO2% (BldA) [Mass fraction] 95 % [facility] 05-13-2024 15:30-0500 Systolic blood pressure 122 mm[Hg] [facility] 01-08-2024 13:03-0400 Body height 147.32 cm [facility] 01-08-2024 13:03-0400 Body mass index (BMI) [Ratio] 26.1 kg/m2 [facility] 01-08-2024 13:03-0400 Body temperature 98.6 [degF] [facility] 01-08-2024 13:03-0400 Body weight 56.75 kg [facility] 01-08-2024 13:03-0400 Diastolic blood pressure 62 mm[Hg] [facility] 01-08-2024 13:03-0400 Heart rate 69 /min [facility] 01-08-2024 13:03-0400 Respiratory rate 16 /min [facility] 01-08-2024 13:03-0400 SaO2% (BldA) [Mass fraction] 96 % [facility] 01-08-2024 13:03-0400 Systolic blood pressure 144 mm[Hg] [facility] 09-25-2023 15:52-0400 Body weight 58.74 kg [facility] 09-25-2023 15:52-0400 Diastolic blood pressure 60 mm[Hg] [facility] 09-25-2023 15:52-0400 Heart rate 65 /min [facility] 09-25-2023 15:52-0400 Systolic blood pressure 110 mm[Hg] [facility] 05-30-2023 15:40-0500 Body height 147.32 cm [place] [facility] Other [facility] [employer] Other 05-30-2023 15:40-0500 Body mass index (BMI) [Ratio] 26.92 kg/m2 [place] [facility] Other [facility] [employer] Other 05-30-2023 15:40-0500 Body temperature 97 [degF] [place] [facility] Other [employer] Other 05-30-2023 15:40-0500 Body weight 58.42 kg [place] Mary Grace Other [employer] Other 11-28-2023 15:40-0500 Diastolic blood pressure 71 mm[Hg] [place] [facility] Other [employer] Other 05-30-2023 15:40-0500 Respiratory rate 18 /min [place] [facility] Other [employer] Other 05-30-2023 15:40-0500 SaO2% (BldA) [Mass fraction] 97 % [place] [facility] Other [employer] Other 05-30-2023 15:40-0500 Systolic blood pressure 153 mm[Hg] [place] [facility] Other [employer] Other 01-30-2023 15:40-0400 Body height 147.32 cm [place] [facility] Other [employer] Other 01-30-2023 15:40-0400 Body mass index (BMI) [Ratio] 26.83 kg/m2 [place] [facility] Other [employer] Other 01-30-2023 15:40-0400 Body temperature 97.7 [degF] [place] [facility] Other [employer] Other 01-30-2023 15:40-0400 Body weight 58.24 kg [place] Mary Grace Other [employer] Other 01-30-2023 15:40-0400 Diastolic blood pressure 67 mm[Hg] [place] Mary [facility] Other [employer] Other 01-30-2023 15:40-0400 Respiratory rate 18 /min [place] Mary Grace Other [employer] Other 01-30-2023 15:40-0400 SaO2% (BldA) [Mass fraction] 98 % [place] [facility] Other [employer] Other 01-30-2023 15:40-0400 Systolic blood pressure 136 mm[Hg] [place] Mary [facility] Other [employer] Other 08-30-2022 14:40-0500 Body height 147.32 cm [place] Mary [facility] Other [employer] Other 08-30-2022 14:40-0500 Body mass index (BMI) [Ratio] 26.29 kg/m2 [place] Mary [facility] Other [employer] Other 08-30-2022 14:40-0500 Body temperature 98.6 [degF] [place] [facility] Other [employer] Other 08-30-2022 14:40-0500 Body weight 57.06 kg [place] Mary Grace Other [employer] Other 08-30-2022 14:40-0500 Diastolic blood pressure 72 mm[Hg] [place] Mary [facility] Other [employer] Other 08-30-2022 14:40-0500 Respiratory rate 18 /min [place] Mary Grace Other [employer] Other 08-30-2022 14:40-0500 SaO2% (BldA) [Mass fraction] 96 % [place] Mary [facility] Other [employer] Other 08-30-2022 14:40-0500 Systolic blood pressure 139 mm[Hg] [place] Mary [facility] Other [employer] Other 05-30-2022 11:40-0500 Body height 147.32 cm [place] Mary Grace Other [employer] Other 05-30-2022 11:40-0500 Body mass index (BMI) [Ratio] 27.25 kg/m2 [place] Mary [facility] Other [employer] Other 05-30-2022 11:40-0500 Body temperature 96.2 [degF] [place] [facility] Other [employer] Other 05-30-2022 11:40-0500 Body weight 59.15 kg [place] Mary Grace Other [employer] Other 05-30-2022 11:40-0500 Diastolic blood pressure 71 mm[Hg] [place] [facility] Other [employer] Other 05-30-2022 11:40-0500 SaO2% (BldA) [Mass fraction] 97 % [place] [facility] Other [employer] Other 05-30-2022 11:40-0500 Systolic blood pressure 151 mm[Hg] [place] Mary [facility] Other [employer] Other 01-27-2022 12:20-0400 Body height 147.32 cm [place] Mary Grace Other [employer] Other 01-27-2022 12:20-0400 Body mass index (BMI) [Ratio] 26.83 kg/m2 [place] Mary Grace Other [employer] Other 01-27-2022 12:20-0400 Body temperature 98 [degF] Geneva Mary Grace Other [employer] Other 01-27-2022 12:20-0400 Body weight 58.24 kg Geneva Mary Grace Other [employer] Other 01-27-2022 12:20-0400 Diastolic blood pressure 69 mm[Hg] Geneva Mary Grace Other [employer] Other 01-27-2022 12:20-0400 Respiratory rate 18 /min Geneva Mary Grace Other [employer] Other 01-27-2022 12:20-0400 SaO2% (BldA) [Mass fraction] 96 % Geneva Mary Grace Other [employer] Other 01-27-2022 12:20-0400 Systolic blood pressure 136 mm[Hg] Geneva Mary Grace Other [employer] Other 09-20-2021 16:00-0400 Body height 147.32 cm Geneva Mary Grace Other [employer] Other 09-20-2021 16:00-0400 Body mass index (BMI) [Ratio] 27.42 kg/m2 Geneva Mary Grace Other [employer] Other 09-20-2021 16:00-0400 Body temperature 97.6 [degF] Geneva Mary Grace Other [employer] Other 09-20-2021 16:00-0400 Body weight 59.51 kg Geneva Mary Grace Other [employer] Other 09-20-2021 16:00-0400 Diastolic blood pressure 76 mm[Hg] Geneva Mary Grace Other [employer] Other 09-20-2021 16:00-0400 Respiratory rate 18 /min Geneva Mary Grace Other [employer] Other 09-20-2021 16:00-0400 SaO2% (BldA) [Mass fraction] 97 % Geneva Mary Grace Other [employer] Other 09-20-2021 16:00-0400 Systolic blood pressure 169 mm[Hg] Geneva Mary Grace Other [employer] Other 05-18-2021 15:40-0500 Body height 147.32 cm Geneva Mary Grace Other [employer] Other 05-18-2021 15:40-0500 Body mass index (BMI) [Ratio] 26.5 kg/m2 Geneva Mary Grace Other [employer] Other 05-18-2021 15:40-0500 Body temperature 97.2 [degF] Geneva Mary Grace Other [employer] Other 05-18-2021 15:40-0500 Body weight 57.52 kg Geneva Mary Grace Other [employer] Other 05-18-2021 15:40-0500 Diastolic blood pressure 79 mm[Hg] Geneva Mary Grace Other [employer] Other 05-18-2021 15:40-0500 Respiratory rate 18 /min Geneva Mary Grace Other [facility] [employer] Other 05-18-2021 15:40-0500 SaO2% (BldA) [Mass fraction] 97 % Geneva Jenkins Other [facility] [employer] Other 05-18-2021 15:40-0500 Systolic blood pressure 137 mm[Hg] Geneva Jenkins Other [facility] [employer] Other Encounters Encounter Date Encounter Type Care Provider Facility Start: 04-15-2025 End: 04-15-2025 ambulatory [facility] Start: 04-07-2025 End: 04-07-2025 ambulatory [facility] Start: 03-23-2025 End: 03-24-2025 Refill Mirta Teran DO Work Phone: [facility] Comment on above: 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, mild stage Start: 01-29-2025 End: 01-29-2025 ambulatory John Perdomo DO Work Phone: [facility] Work Phone: Start: 01-29-2025 End: 01-29-2025 Patient encounter procedure Geneva Jenkins MD -[facility] [place] Work Phone: Start: 01-20-2025 Non-patient / Non-visit Geneva Jenkins MD -[facility] [employer] Work Phone: Start: 11-26-2024 End: 11-26-2024 Bamboo katie Teran DO Work Phone: [facility] Start: 11-26-2024 End: 11-26-2024 Bamboo flowsantoinette Teran DO Work Phone: [facility] Start: 11-26-2024 End: 11-26-2024 ambulatory MIRTA TERAN Not Available Start: 09-16-2024 End: 09-16-2024 ambulatory [facility] Start: 09-03-2024 End: 09-03-2024 ambulatory [facility] Work Phone: Start: 09-03-2024 End: 09-03-2024 Patient encounter procedure [facility] [place] Work Phone: Start: 08-26-2024 Non-patient / Non-visit [facility] [employer] Work Phone: Start: 05-15-2024 End: 05-15-2024 Bamboo flowsheet Mirta Teran DO Work Phone: [facility] Start: 05-15-2024 End: 05-15-2024 Bamboo flowsheet Mirta Teran DO Work Phone: [facility] Start: 05-15-2024 End: 05-15-2024 ambulatory MIRTA TERAN Not Available Start: 05-13-2024 End: 05-13-2024 ambulatory [facility] Work Phone: Start: 05-13-2024 End: 05-13-2024 Patient encounter procedure [facility] [place] Work Phone: Start: 05-09-2024 Non-patient / Non-visit [facility] [employer] Work Phone: Start: 01-08-2024 End: 01-08-2024 ambulatory [facility] Work Phone: Start: 01-08-2024 End: 01-08-2024 Patient encounter procedure [facility] Work Phone: Start: 01-01-2024 Non-patient / Non-visit [facility] [employer] Work Phone: Start: 09-25-2023 End: 09-25-2023 ambulatory [facility] Work Phone: Start: 09-25-2023 End: 09-25-2023 Patient encounter procedure [facility] Work Phone: Start: 08-08-2023 End: 08-08-2023 ambulatory Geneva Mary Grace Other [employer] Other Start: 08-08-2023 Telephone encounter Geneva Mary Grace [facility] Start: 07-11-2023 End: 07-11-2023 ambulatory Geneva Mary Grace Other [employer] Other Start: 07-11-2023 Telephone encounter Geneva Mary Grace [facility] Start: 05-30-2023 End: 05-30-2023 ambulatory Geneva Mary Grace Other [employer] Other Start: 05-30-2023 Office outpatient visit 25 minutes Geneva Mary Grace [facility] Start: 05-23-2023 End: 05-23-2023 ambulatory Geneva Mary Grace Other [employer] Other Start: 05-23-2023 Telephone encounter Geneva Mary Grace [facility] Start: 01-30-2023 End: 01-30-2023 ambulatory Geneva Mary Grace Other [employer] Other Start: 01-30-2023 Encounter by compute r link Geneva Mary Grace [facility] Start: 01-30-2023 Office outpatient visit 25 minutes Geneva Mary Grace [facility] Start: 10-27-2022 End: 10-27-2022 ambulatory Geneva Mary Grace Other [employer] Other Start: 10-27-2022 Telephone encounter Geneva Mary Grace [facility] Start: 10-26-2022 End: 10-27-[address] JOHN PERDOMO Facility:[facility] Start: 08-30-2022 End: 08-30-2022 ambulatory Geneva Mary Grace Other [employer] Other Start: 08-30-2022 Office outpatient visit 25 [...] End: 05-30-2022 ambulatory Geneva Mary Grace Other [employer] Other Start: 05-30-2022 Office outpatient visit 25 minutes Geneva Mary Grace [facility] Start: 05-27-2022 End: 05-28-[address] JOHN PERDOMO Facility:[facility] Start: 05-23-2022 Telephone encounter Geneva Mary Grace [facility] Start: 05-23-2022 End: 05-24-[address] JOHN PERDOMO [employer] Other Start: 05-14-2022 End: 05-15-2022 ambulatory KWAN ROSALES Facility:[facility] Start: 05-12-2022 End: 05-12-2022 ambulatory Geneva Mary Grace Other [employer] Other Start: 05-12-2022 Telephone encounter Geneva Mary Grace [facility] Start: 05-11-2022 End: 05-12-2022 ambulatory KWAN ROSALES Facility:[facility] Start: 03-17-2022 End: 03-18-[address] JOHN PERDOMO Facility:[facility] Start: 01-27-2022 End: 01-27-2022 ambulatory Geneva Mary Grace Other [employer] Other Start: 01-27-2022 Office outpatient visit 25 minutes Geneva Mary Grace [facility] Start: 01-21-2022 End: 01-22-[address] JOHN PERDOMO Facility:[facility] Start: 01-17-2022 End: 01-18-[address] JOHN PERDOMO Facility:[facility] Start: 01-13-2022 End: 01-13-2022 ambulatory Geneva Mary Grace Other [employer] Other Start: 01-13-2022 Telephone encounter Geneva Mary Grace [facility] Start: 12-16-2021 Telephone encounter Geneva Mary Grace [facility] Start: 12-16-2021 End: 12-17-[address] JOHN PERDOMO [employer] Other Start: 12-09-2021 End: 12-10-2021 ambulatory JOHN PERDOMO Facility:[facility] Start: 12-08-2021 End: 12-08-2021 ambulatory Geneva Mary Grace Other [employer] Other Start: 12-08-2021 Telephone encounter Geneva Mary Grace [facility] Start: 12-07-2021 End: 12-07-[address] JOHN PERDOMO Facility:[facility] Start: 12-06-2021 End: 12-07-[address] JOHN PERDOMO Facility:[facility] Start: 12-01-2021 End: 12-02-[address] JOHN PERDOMO Facility:[facility] Start: 11-19-2021 End: 11-20-[address] JOHN PERDOMO Facility:[facility] Start: 11-01-2021 End: 11-01-2021 ambulatory Geneva Mary Grace Other [employer] Other Start: 11-01-2021 Encounter by [employer] r link Geneva Mary Grace [facility] Start: 10-28-2021 End: 10-28-2021 ambulatory Geneva Mary Grace Other [employer] Other Start: 10-28-2021 Telephone encounter Geneva Mary Grace [facility] Start: 10-13-2021 End: 10-13-2021 ambulatory Geneva Mary Grace Other [employer] Other Start: 10-13-2021 Encounter by [employer] r link Geneva Mary Grace [facility] Start: 10-06-2021 End: 10-06-2021 ambulatory Geneva Mary Grace Other [employer] Other Start: 10-06-2021 Telephone encounter Geneva Mary Grace [facility] Start: 09-21-2021 End: 09-21-2021 ambulatory Geneva Mary Grace Other [employer] Other Start: 09-21-2021 Telephone encounter Geneva Mary Grace [facility] Start: 09-20-2021 End: 09-20-2021 ambulatory Geneva Mary Grace Other [employer] Other Start: 09-20-2021 Office outpatient visit 25 minutes Geneva Mary Grace [facility] Start: 08-01-2021 End: 08-01-2021 ambulatory Geneva Mary Grace Other [employer] Other Start: 08-01-2021 Encounter by [employer] r link Geneva Mary Grace [facility] Start: 07-18-2021 End: 07-18-2021 ambulatory Geneva Mary Grace Other [employer] Other Start: 07-18-2021 Encounter by jose parrish Geneva Mary Grace [facility] Start: 05-18-2021 End: 05-18-2021 ambulatory Geneva Mary Grace Other [facility] [employer] Other Start: 05-18-2021 Office outpatient visit 25 minutes Geneva Mary Grace [facility] Procedures Date Procedure Procedure Detail Performing Clinician Start: 11-26-2024 Visual field xm uni/ bi w/interp extended exam Mirta Teran DO Work Phone: Start: 11-26-2024 End: 11-26-2024 Oph medical xm&eval comprhnsv estab pt 1/> Corneal [...] DO Work Phone: Start: 05-15-2024 End: 05-15-2024 Oph medical xm&eval comprhnsv estab pt 1/> Primary [...] 11-26-2025 Glaucoma screening Diabetes: R etinopathy Screening [facility] Start: 06-04-2025 End: 06-04-2025 Patient encounter procedure 06/04/2025 1:15 PM EST Office Visit [facility] [address] [place] [id number] Mirta Teran, DO [address] [place] [address] [facility] Start: 05-15-2025 Glaucoma screening Diabetes: R etinopathy Screening [facility] Start: 03-03-2025 Influenza vaccination [facility] Start: 11-26-2024 End: 11-26-2024 Patient encounter procedure [facility] Comment on above: Arrived Start: 03-03-2024 Influenza vaccination Influenza Vacc ine (#1) [facility] Start: 10-08-2020 Hemoglobin A1c measurement Diabetes: Hemoglobin A1C [facility] Start: 1991 Screening for malign ant neoplasm of breast Mammogram [facility] Start: 1970 Pneumococcal Vaccine : 65+ Years (1 of 2 - PCV) Pneumococcal Vaccine: 65+ Years (1 of 2 - PCV) [facility] Start: 1970 Urine screening for protein Diabetes: Urine Protein Screening [facility] Start: 1957 Pneumococcal Vaccine : 65+ Years (1 of 2 - PCV) Pneumococcal Vaccine: 65+ Years (1 of 2 - PCV) [facility] Start: 1950 Medicare Annual Well ness (AWV) Medicare Annual Wellness (AWV) [facility] Start: 1950 Screening for malign ant neoplasm of colon [facility] Immunofixation for Urine Fir [facility] Renal function 1999 panel - Serum or Plasma [facility] Renal function 1999 panel - Serum or Plasma [facility] Renal function 1999 panel - Serum or Plasma [facility] Renal function 1999 panel - Serum or Plasma [facility] Renal function 1999 panel - Serum or Plasma [facility] Immunizations Immunization Date Immunization Notes Care Provider Fa cility NEGATED: Highlighted row has not occurred!06-05-2019 influenza, high dose seasonal, preservative-free Patient Objection Geneva Jenkins Other [employer] Other Payers Date Payer Category Payer Private Health Insurance [employer] [id number] 2016 Medicare MEDICARE [id number] 1959 Medicare [id number] 1959 Unknown [id number] 1951 Unknown [id number] 2.16.840.1.662532.3.579.2. 647 1951 Unknown [id number] 2.16.840.1.524372.3.579.2. 593 1951 Unknown [id number] 2.16.840.1.128798.3.579.2. 593 1951 Unknown [id number] 2.16.840.1.161311.3.579.2. 593 1951 Unknown [id number] 2.16.840.1.650143.3.579.2. 593 1951 Unknown [id number] 2.16.840.1.257586.3.579.2. 593 1951 Unknown [id number] 2.16.840.1.902084.3.579.2. 593 1951 Unknown [id number] 2.16.840.1.003295.3.579.2. 593 1951 Unknown [id number] 2.16.840.1.476595.3.579.2. 593 1951 Unknown [id number] 2.16.840.1.501648.3.579.2. 593 1951 Unknown [id number] 2.16.840.1.380518.3.579.2. 593 1951 Unknown [id number] 2.16.840.1.898600.3.579.2. 593 1951 Unknown [id number] 2.16.840.1.194148.3.579.2. 593 1951 Unknown [id number] 2.16.840.1.917960.3.579.2. 593 1951 Unknown [id number] 2.16.840.1.518691.3.579.2. 593 1951 Unknown [id number] 2.16.840.1.719077.3.579.2. 593 1951 Unknown [id number] 2.16.840.1.180260.3.579.2. 593 1951 Unknown [id number] 2.16.840.1.453734.3.579.2. 593 1951 Unknown [id number] 2.16.840.1.622691.3.579.2. 593 1951 Unknown [id number] 2.16.840.1.331417.3.579.2. 593 1951 Unknown [id number] 2.16.840.1.076840.3.579.2. 593 1951 Unknown [id number] 2.16.840.1.058068.3.579.2. 1259 1951 Unknown [id number] 2.16.840.1.409646.3.579.2. 1259 Self-pay Self Pay [id number] Unknown Regular Insurance [id number] Social History Date Type Detail Facility Unknown if ever smoked [facility] [employer] Other Start: 05-15-2024 Sex Assigned At N [facility] [employer] Other Start: 11-23-2017 End: 09-26-2023 Tobacco smoking status NHIS Never smoked tobacco (finding) [facility] Start: 1950 Sex Assigned At Female F [facility] Start: 05-13-2024 End: 09-03-2024 Sex Female (finding) [facility] Start: 09-26-2023 Tobacco use and exposure Smokeless tobacco non-user [facility] Start: 05-15-2024 Alcoholic beverage intake Lifetime non-drinker (finding) [facility] Start: 05-15-2024 History of Social function [facility] Start: 09-26-2023 Alcohol Comment caffeine intak e: 1-2 cups per day soda/pop 1-2 cans per week [facility] Start: 05-01-2023 Gender identity Identifies as female gender (finding) [facility] Clinical Notes 04-27-2020 to 04-15-2025 Mirta Teran, DO - 11/26/2024 2:00 PM EDTMirta Teran, DO - 05/15/2024 1:30 PM EST Note Date & Type Note Facility 04-15-2025 Note [place] [facility] Subjective Chief Complaint Patient presents with Follow-up Patient is here today for a follow up [facility] admission. Patient states she feels better but not great. Patient states the Hospitalist changed her medications and [...] kg (124 lb) SpO2 95% BMI 27.80 kg/m??? Smoking Status Never BSA 1.49 m??? Physical Exam Constitutional: Appearance: She is well-developed. She is not ill-appearing. HENT: Head: Normocephalic and atraumatic. Nose: Nose normal. Eyes: General: No scleral icterus. Pupils: Pupils are equal, round, and reactive to light. Neck: Thyroid: No thyromegaly. Vascular: No JVD. Cardiovascular: Rate and Rhythm: No (more content not included)... [facility] 04-07-2025 Note [place] [facility] Subjective Claudia Estrella is [...] and dry. Neurologi (more content not included)... [facility] 11-26-2024 Note Right Eye Reliability was poor. Progression has been stable. Foveal threshold was normal. Findings include superior nasal step defect, inferior nasal step defect, central scotoma. Left Eye Reliability was borderline. Progression has been stable. Foveal threshold was normal. Findings include superior arcuate defect, inferior arcuate defect, central scotoma. [facility] 11-26-2024 History of Present illness Narrative [...] tears were recommended. documented in this encounter [facility] 09-16-2024 Note [place] [facility] Subjective Claudia Estrella is a 74 y.o. year old female patient being seen for follow up 6 mo follow up CAD, chronic diastolic heart failure, and hypertension. Had labs last month for nephrology. She only had 1 tablet left of metoprolol (50mg) and took it yesterday. Hasn't had any today. She was told by [facility] that she can't get it until . [...] is symptomatic with that. After visit with ut on 08/04/2023 and due to orthostatic hypotension and no evidence of leg edema I reduced her Bumex but she ended up having significant volume overload and was admitted to the hospital for diuresis. She did well with intravenous diuretic therapy. Her diuretic therapy was adjusted. At last visit with ut on 03/29/2024 and due to low blood [...] Erythromycin Base Hydromorphone (more content not included)... [facility] 05-15-2024 Note Right Eye Quality was good. Scan locations included subfoveal. Progression has been stable. Findings include abnormal foveal contour, intraretinal fluid, subretinal fluid. Left Eye Quality was good. Scan locations included subfoveal. Progression has been stable. Findings include abnormal foveal contour. Notes Area of atrophy w/ retinal pigment epithelium (RPE) tear [facility] 05-15-2024 History of Present illness Narrative [...] tears were recommended. documented in this encounter [facility] 05-30-2023 Evaluation note Encounter Date Diagnosis [...] has adequate Iron stores. Continue oral iron. [employer] Other 07-31-2023 Evaluation note* Encounter Date Diagnosis [...] has adequate [employer] stores. Continue oral iron. [employer] Other 02-28-2023 Evaluation note* Encounter Date Diagnosis [...] past. Will defer this to the PCP. [employer] Other 11-28-2022 Evaluation note* Encounter Date Diagnosis [...] an adequate [employer] stores. Continue oral iron. [employer] Other 11-21-2022 Evaluation note* Encounter Date Diagnosis Assessment Notes Treatment Notes Treatment Clinical Notes May, CKD (chronic kidney disease) stage 4, GFR 15-29 ml/min (ICD-10 - N18.4) [employer] Other 07-28-2022 Evaluation note* Encounter Date Diagnosis [...] an adequate [employer]. Continue oral iron. [employer] Other 03-22-2022 Evaluation note* Encounter Date Diagnosis Assessment Notes Treatment Notes Treatment Clinical Notes Aug, Hypokalemia (ICD-10 - E87.6) [employer] Other 03-21-2022 Evaluation note* Encounter Date Diagnosis [...] an adequate [employer]. Continue oral iron. [employer] Other 01-16-2022 Evaluation note* Encounter Date Diagnosis Assessment Notes Treatment Notes Treatment Clinical Notes Jul, Hyperuricemia (ICD-1 0 - E79.0) [employer] Other 11-16-2021 Evaluation note* Encounter Date Diagnosis [...] an adequate [employer]. Continue oral iron. [employer] Other [id number] NoteRounds at this time with MURPHY Amor, [...] MURPHY Amor notified Taylor Fisher & Maryan Lopez.[facility] Center[facility] on above:Result Comment: Electronically Signed By: Zuleyma Shin RN\.rashmi\Date and Time Signed: 05/04/20 13:53 [id number] NoteBasic Information Cardiology Progress Subjective Cardiology consulted over weekend for chest discomfort post operatively. Her EKG was non-acute and troponin trended negative. She does have a serging machine operator automatic and reportedly had stress testing in August [...] mg/dL High (05/04/20 12:12:00) POC Device SN: [id number] (05/04/20 12:12:00) POC Username: NESHA COTA (05/04/20 [...] prefers all testing to be performed at [facility]. Faxed notes to her primary serging machine operator automatic's office, Dr Fish. Attempted to schedule stress testing with Becca, unable. Ordered: EC Stress Echo Complete w/ Contrast 2. Hypertension (I10: Essential (primary) hypertension) Continue current medications and follow up with primary serging machine operator automatic on discharge. 3. Diabetes (E11.9: Type 2 [...] discuss this management further with her primary serging machine operator automatic, but agreeable to starting statin for now. Patient is offered in-patient stress echocardiogram but declines as she wants to be discharged. She is offered out patient stress testing [place] [facility] [place] and she prefers to have this done at [facility]. Per Central Scheduling at [facility], Dobutamine Stress Echo's are not performed at the facility. She will have close FU with Dr Fish to move forward with testing. D/W Dr Michel. Faxed info from [facility] Hospital stay to her primary serging machine operator automatic. Attestation Discussed patient findings and plan of [...] tab(s), Oral, Bedtime saturnino (more content not included)...[facility] Center[facility] on above: Result Comment: Electronically Signed By: Trudy SUAZO CNP\.br\Date and Time Signed: 05/04/20 13:15 EST\.br\Electronically Co-Signed By: Darrell VIGIL, Jay Jay Conklin\.br\Date and Time Co-Signed: 05/04/20 13:19 [id number] NoteIV removed. nurse senior sql server developer emptied. patient and patients daughter verbalized understanding of discharge teaching. patient refused flu vaccination. patient did not verbalize any questions or concerns atthis time.[facility] Note Admission Information Admitting Physician - JUN VIGIL, Nhung Consulting Physician - Eleuterio VIGIL, John Olson Referring Physician - Dvaid Talamantes DO Hospital Course 70-year-old female with [...] another day versus following up with her serging machine operator automatic and she has opted to do the latter. This is reasonable as she is chest pain-free at rest as well as on exertion. Patient is already on lisinopril, metoprolol, aspirin. Lipitor 20 mg was added for further risk reduction. She will follow-up with her primary serging machine operator automatic Dr. Fish. Regarding her recent Ortho surgery she will do weightbearing activity as tolerated and use crutchesfor assistance with ambulation. Dr. Kushal Michel Hospitalist This report was transcribed using voice recognition software. Every effort was made to ensure accuracy, however, inadvertently computerized panel lay up worker mistakes may be present. Significant Findings [...] pain) Ordered: Hospital Discharge Day 30 Min/Less 18800 2. Hypertension (I10: Essential (primary) hypertension) Ordered: Hospital Discharge Day 30 Min/Less 44157 3. Diabetes (E11.9: Type 2 diabetes mellitus without complications) Ordered: atorvastatin, 20 mg = 1 tab(s), Oral, Bedtime, # 30 tab(s), Refills(s) 1, Pharmacy: [facility]/pharmacy #[id number], 141.5, cm, 04/24/20 13:16:00 EDT, Height/Length Dosing, 69, kg, 05/02/20 5:50:00 EDT, Weight Dosing Hospital Discharge Day 30 Min/Less 41414 4. Acute medial meniscus tear of left knee (S83.242A: Other tear of medial meniscus, current injury, left knee, initial encounter) Ordered: Hospital Discharge Day 30 Min/Less 98822 5. Localized osteoarthritis of left knee (M17.12: Unilateral primary osteoarthritis, left knee) Ordered: Hospital Discharge Day 30 Min/Less 47954 6. No contraindication to deep vein thrombosis (DVT) prophylaxis (Z78.9: Other specified health status) Ordered: Hospital Discharge Day 30 Min/Less [id number] Bruit (R09.89: Other specified symptoms and signs [...] With When Contact Information Follow up with Teenage Babysitter Within 1 week Additional Instructions: JOHN PERDOMO [facility] [place] [address]- Business (1) Additional Instructions: David Talamantes [address] [place] [id number]- [facility] (1) Additional Instructions: Keep scheduled (more content not included)...[facility]:Result Comment: Electronically Signed By: RAMIREZ VIGIL, Kushal\.br\Date and Time Signed: 05/04/20 12:[id number] NoteDr. Amir rounded with patient earlier. CRM [...] time. Anticipated discharge 05/04/2020 home. CRM to follow.[facility]:Result Comment: Electronically Signed By: Ab WU, Terri Ramirez\.br\Date and Time Signed: 05/02/20 10:06 [id number] NoteReason for Consultation Chest pain postoperatively History of Present Illness Mrs. Estrella is a very pleasant 70-year-old diabetic female with hypertension, unknown cholesterol, previously seen by serging machine operator automatic Dr. Fish in September 2019 for what [...] testing apparently took place in a private serging machine operator automatic office, so I am unsure whether we [...] test in September 2019 at a private serging machine operator automatic 's office, reportedly LV dysfunction per thepatient, [...] she undergo a dobutami (more content not included)...[facility]:Result Comment: Electronically Signed By: Eleuterio VIGIL, John Olson\.br\Date and Time Signed: 05/02/20 08:35 [id number] NoteBasic Information Accompanied by: Family member Source of History: Self Present at Bedside: Family member Referral Source: Recovery room History Limitation: None Chief Complaint chest pain History of Present Illness Pt is a 70 F PMH HTN, HLD admitted from PACU. pt had a repair of a left medial meniscus tear with Dr. Talamantes of [facility]. Pt was in PACU recovering, had [...] 84 mg/dL (05/01/20 16:07:00) POC Device SN: [id number] (05/01/20 16:07:00) POC Username: ALEXIA HALL (05/01/20 16:07:00) Diagnostic Results EKG NSR [address]-T wave changes Images No qualifying data available. Assessment/Plan 1. Other chest pain (R07.89: Other chest pain) - possible ACS, risk factors include DM, HTN, obesity - telemetry, troponin - ASA, fasting lipid profile - [place] [facility] [place] 2. Hypertension (I10: Essential (primary) hypertension) [...] acetaminophen 325 mg Tab (more content not included)...[facility] Center[facility]:Result Comment: Electronically Signed By: JUN VIGILNhung\.br\Date and Time Signed: 05/01/20 18:30 [id number] Note [id number]:[id number] Evaluation noteNo [facility] [employer] Other Evaluation note* Diagnosis Onset Date Resolution Status Anemia of renal disease acut e CKD (chronic kidney disease) stage 4, GFR 15-29 ml/min acute Hyperlipidemia acute [id number] acute Hyperuricemia acute Hypokalemia acute Microscopic hematuria acute Secondary hyperparathyroidism acute Type 2 diabetes mellitus wit h diabetic chronic kidney disease acute [facility] Work Phone: Evaluation note* Diagnosis Onset [...] kidney disease acute May 13, 2024 3:17pm [facility] Work Phone: Evaluation note* Diagnosis Primary open angle glaucoma (POAG) of both eyes, mild stage (CMS/HCC)- Primary 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 (CMS/HCC) Corneal scar, right eye Unspecified corneal opacity Dry eyes Unspecified tear film insufficiency documented [facility] noteNo assessment information availableA[facility] Work Phone: Evaluation note* Diagnosis Corneal scar, right eye- Primary Unspecified corneal opacity Dry eyes Unspecified tear film insufficiency 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 (CMS/HCC) Primary open angle glaucoma (POAG) of both eyes, mild stage documented in this encounter [facility] HealthcareEvaluation note* Diagnosis Onset Date Resolution Status Admit Date Anemia of renal disease acute J erika 2024 11:35am CKD (chronic kidney disease) stage [...] kidney disease acute January 29, 2025 11:35am [facility] Work Phone: Evaluation note* Diagnosis Primary open angle glaucoma (POAG) of both eyes, mild stage [facility] N[facility]ative - Reported* Type Description Date [...] eye surgery 04/2021 Hospitalization History see above [employer] Other History general Narrative - Reported* Type [...] RIGHT EYE 2021 Hospitalization History see above [employer] Other History general Narrative - Reported* Type [...] HEART CATH 12/2021 Hospitalization History see above [employer] Other Reason for referral (narrative)No reason for referral information availableA[facility] Work Phone: Summary Purpose Family History [...] disease) stage 4, GFR 15-29 ml/min Hyperlipidemia [id number] Hyperuricemia Hypokalemia Microscopic hematuria Secondary hyperparathyroidism Type 2 diabetes mellitus with diabetic chronic kidney disease Chief Complaint RENAL 4 MONTH F/U Reason for Visit Anemia of renal dise ase CKD (chronic kidney disease) stage 4, GFR 15-29 ml/min Hyperlipidemia [id number] Hyperuricemia Hypokalemia Microscopic hematuria Secondary hyperparathyroidism Type [...] and content) DATE CREATED AUTHOR 03/07/2021 Jabier [facility] DATE CREATED AUTHOR AUTHOR'S ORGANIZ ATION 08/05/2021 [facility] DATE CREATED AUTHOR AUTHOR'S ORGANIZ ATION 12/16/2021 [facility] [place] DATE CREATED AUTHOR AUTHOR'S ORGANIZ ATION 10/29/2022 [facility] pital DATE CREATED AUTHOR AUTHOR'S ORGANIZ ATION 11/29/2024 [facility] EPIC DATE CREATED AUTHOR AUTHOR'S ORGANIZ ATION 04/17/[address] [facility] REASON FOR VISIT (unrecogniz ed section [...] May 13, 2024 End: May 13, 2024 Clean Up Supervisor Relationship Specialty Start Date End Date Unallocated, Noms MD [facility] [place] [address] PCP - General Family Medicine 08/18/23 John Perdomo MD [address] [place] [address] Referring Physician Orthopaedic Surgery 05/08/23 Clean Up Supervisor Relationship Specialty Start Date End Date Unallocated, Ara Robertson MD [facility] [place] [address] PCP - General Family Medicine 08/18/23 John Perdomo MD [address] [place] [address] Referring Physician Orthopaedic Surgery 05/08/23 Team Status: [...] September 03, 2024 End: September 03, 2024 Clean Up Supervisor Relationship Specialty Start Date End Date Unallocated, Ara Robertson MD [address] [place] [address] PCP - General Family Medicine 08/18/23 John Perdomo MD [address] [place] [address] Referring Physician Orthopaedic Surgery 05/08/23 Clean Up Supervisor Relationship Specialty Start Date End Date Unallocated, Ara Robertson MD [address] [place], [place] [address] [address] PCP - General Family Medicine 08/18/23 John Perdomo MD [address] [place] [address] Referring Physician Orthopaedic Surgery 05/08/23 Team Status: [...] January 29, 2025 End: January 29, 2025 Clean Up Supervisor Relationship Specialty Start Date End Date Unallocated, Noms Provider, [address] [place] [id number] PCP - General Family Medicine 08/18/23 John Perdomo MD [address] [place] [id number] Referring Physician Orthopaedic Surgery 05/08/23 Goals (unrecognized [...] BE BASED ON THE PRIMARY CLINICAL RECORDS. [employer] provides no warranty or guarantee of the accuracy or completeness of information in this document.
[2025-04-18 10:14] LABS: Hematocrit 31.7 % (36.0-48.0); Hemoglobin 10.4 g/dL (12.0-16.0); Mean Corpuscular HGB Conc 32.8 g/dL (29.9-35.2); Mean Corpuscular Hemoglobin 29.5 pg (26.7-34.0); Mean Corpuscular Volume 89.8 fL (81.0-99.0); Platelet Count 191 10^3/uL (150-450); Red Blood Count 3.53 10^6/uL (4.20-5.40); White Blood Count 11.0 10^3/uL (4.0-11.0)
[2025-04-18 11:08] LABS: Iron 54.0 ug/dL (50.0-170.0); Percent Iron Saturation 21.9 %; Total Iron Binding Capacity 247.0 ug/dL (250.0-450.0)
[2025-04-18 11:09] LABS: Albumin Level 3.7 g/dL (3.4-5.0); Anion Gap 12.2; Blood Urea Nitrogen 56.0 mg/dL (7.0-18.0); Calcium 9.1 mg/dL (8.5-10.1); Carbon Dioxide 23.4 mmol/L (21.0-32.0); Chloride 102 mmol/L (98-107); Estimated GFR (African America 22 (>=60 mL/min/1.73m^2); Estimated GFR (Non-African Ame 18 (>=60 mL/min/1.73m^2); Glucose 182 mg/dL (74-106); Magnesium 2.4 mg/dL (1.8-2.4); Potassium 3.6 mmol/L (3.5-5.1); Sodium 134 mmol/L (136-145); Uric Acid 5.0 mg/dL (2.6-6.0)
[2025-04-18 11:10] LABS: Ferritin 220.0 ng/mL (8.0-252.0)
[2025-04-18 11:39] LABS: Glucose Urine UA NEGATIVE (NEGATIVE)
[2025-04-18 11:56] LABS: Cast Seen? NONE SEEN #/LPF (NONE SEEN); Crystals Seen? None Seen #/HPF (None Seen)
[2025-04-18 15:23] LABS: Protein Creatinine Ratio Urine 4.07; Total Protein Urine Random 317.2 mg/dL (<=11.9)
== END 2025-04-18 09:43 | disposition home or self-care (01) ==
LOC: LAB 09:44
PROVIDERS: PCP Family Medicine; Visit Provider Internal Medicine
DX: E11.22 Type 2 diabetes mellitus with diabetic chronic kidney disease (principal); E78.5 Hyperlipidemia, unspecified; E87.6 Hypokalemia; R31.29 Other microscopic hematuria; I12.9 Hypertensive chronic kidney disease with stage 1 through stage 4 chronic kidney disease, or unspecified chronic kidney disease; N25.81 Secondary hyperparathyroidism of renal origin
CPT/HCPCS: 36415; 80069; 81001; 82306; 82570; 82728; 83540; 83550; 83735; 83970; 84156; 84550; 85027

== ENCOUNTER 2025-04-25 14:14 | Outpatient (OUT) | payer MEDICARE, OTHER, SELFPAY ==
--- OUTSIDE RECORDS SUMMARY | 2024-11-28 09:00 | XMS_ITS ---
Author Organization [facility] in [place] Address [address] [place] [address] Care Team Providers Care High School English Teacher Name Role Phone John Perdomo Primary Care Provider [phone] REASON FOR VISIT MCW Encounters Encounter Location Date Provider Diagnosis [facility] [address] [place] [address] 11/28/2024 John Perdomo Plan Of Treatment Next Appt Details Provider Name:John browne, 06/11/2025 01:00:00 PM, [address] [place], [address], Progress Notes * Claudia POLO EDOB:[birth year] (75 yo F)Acc No.[id number]:11/28/2024 UNLOCKED PROGRESS NOTE Progress Note Patient: Amrik BECKERness Conklin :Alice Perdomo DODOB:1950???Age:74 Y ???Sex:FemaleDate:11/28/2024Phone:[phone]:[address] [id number] Subjective: * Chief Complaints: * 1 . MCW. * Medical History: Objective: * Vitals: Assessment: Plan: * Treatment: * * Electronic signature of John Perdomo DO, [id number] on 04/25/2025 at 02:17 PM EDTSign off status: PendingVisit Status:?R/S (Rescheduled) * Provider: Hayden Perdomo, DO Date: 0 11/28/2024 Generated for Printing/Faxing/eTransmitting on:?04/25/2025 02:17 PM EDT
--- OUTSIDE RECORDS SUMMARY | 2025-04-15 14:20 | XMS_ITS | Encounter Summary ---
Author Organization [facility] Address [address] [place] [address] Care Team Providers Care Cdl Instructor Name Role Phone John Perdomo DO Primary Care Provider [phone] Reason for Visit * ReasonCommentsFollow-upPatient is here today for a follow up [facility] admission. Patient states she feels better but not great.Patient states the Hospitalist changed her medications and cut her bumex in half, changed her potassium to 1 a day.Coronary Artery DiseaseHypertensionHyperlipidemiaCongestive Heart FailureHeart Murmurstage 4 kidney diseaseShortness of BreathDOE. Encounter Details DateTypeDepartmentCare Team (Latest Contact Info)Sodkoaqkuzj95/14/2025 2:20 PM EDTOffice Visit [facility] [address] [address] Emilia To, IRISH [address] [place] [id number] Acute on chronic diastolic congestive heart failure (CMS/HCC) (Primary Dx); Essential (primary) hypertension; Coronary artery disease involving moapa coronary artery of moapa heart without angina pectoris; History of coronary artery bypass surgery; Stage 4 chronic kidney disease (CMS/HCC); Primary hypertension; Orthostatic hypotension Social History Tobacco UseTypesPacks/DayYears UsedDateSmoking Tobacco: NeverSmokeless Tobacco: NeverAlcohol UseStandard Drinks/WeekCommentsNot Currently0 (1 standard drink = 0.6 oz pure alcohol)UT Safety & EnvironmentAnswerDate RecordedFear of Current or Ex-PartnerNot on file08/24/2023Emotionally AbusedNot on file08/24/2023hysically AbusedNot on file08/24/2023Sexually AbusedNot on file08/24/2023hysically or Sexually AbusedNot on file08/24/2023CommentsUnknownSex and Gender InformationValueDate RecordedSex Assigned at RxoabAkkslf65/17/2022 6:11 PM EST Legal GdsUytmrj38/30/2022 12:22 AM EDTGender MoyhvuttEvjrkq45/17/2022 6:11 PM ESTSexual OrientationHeterosexual or Bkbfbons31/17/2022 6:11 PM ESTdocumented as of this encounter Last Filed Vital Signs Vital SignReadingTime TakenCommentsBlood Zfyjjouu584/ 2:47 PM EDT Evasu112104/15/2025 2:47 PM EDTTemperature--Respiratory Rate--Oxygen Qkumkdmtmw03% 04/15/2025 2:47 PM EDTInhaled Oxygen Concentration--Fyxjyj00.2 kg (124 lb) 04/15/2025 2:47 PM BDBVlalbx390.2 cm (4' 8 )04/15/2025 2:47 PM EDTBody Mass Index27.81 2:47 PM EDTdocumented in this encounter Functional Status * BPAnswerDate of TdglysjoniFufgfq047/7010/14/2025 2:47 PM Mounika Yarbrough MA * PulseAnswerDate of CoxqzztgiuXyqadx4163/14/2025 2:47 PM Mounika Yarbrough MA * Patient PositionAnswerDate of TlxzwgsossVeylrmVxhvkzr70/14/2025 2:47 PM EDT Mounika Hinds MA * BPAnswerDate of BrkdhkweaySahvkp726/7010/14/2025 2:47 PM Mounika Yarbrough MA * PulseAnswerDate of EbdomajwczFnuzlg7809/14/2025 2:47 PM Mounika Yarbrough MA * TpP2BjgqxwNegr of YnhfvwodcdZmiqkx8955/14/2025 2:47 PM Mounika Yarbrough MA * BP LocationAnswerDate of AssessmentAuthorLeft arm04/15/2025 2:47 PM EDT Mounika Hinds MA * Patient PositionAnswerDate of AwxchhpjxjWyxrolUmvtlic87/14/2025 2:47 PM EDT Mounika Hinds MA documented as of this encounter Patient Instructions * Patient Instructions* Emilia To CNP - 04/15/2025 2:20 PM EDT *Will have her go back up to 75mg BID for HTN management. *Increase bumex to 2mg BID. *Have weekly labs to follow-up on kidney function documented in this encounter Progress Notes * Emilia To CNP - 04/15/2025 2:20 PM EDT Images from the original note were not included. [place] [facility] Subjective Chief Complaint Patient presents with Follow-up Patient is here today for a follow up [facility] admission. Patient states she feels better but not great.Patient states the Hospitalist changed her medications and cut her bumex in half, changed her potassium to 1 a day. Coronary Artery Disease Hypertension Hyperlipidemia Congestive Heart Failure Heart Murmur stage 4 kidney disease Shortness of Breath MCALLISTER. Patient Active Problem List Diagnosis Coronary arteriosclerosis [...] Alcohol use: Not Currently Drug use: Never Coronary Artery Disease Symptoms include leg swelling, shortness of breath and weight gain. Risk factors include hyperlipidemia. Her past medical history is significant for CHF. Hypertension Associated symptoms include malaise/fatigue and shortness of breath. Hyperlipidemia Associated symptoms include shortness of breath. Congestive Heart Failure Associated symptoms include shortness of breath. Her past medical history is significant for CAD. Heart Murmur Shortness of Breath Associated symptoms include leg swelling and wheezing. Her past medical history is significant for CAD. Claudia is seen in follow-up. She is [...] has on and off coughing. No fever. Update 04/15/2025 MCALLISTER is stable, slightly improved since we last saw her in clinic. Abdominal bloating seems to be better. She has ongoing orthopnea, unchanged and not new for her. BP at home has been running about 140s/70s. She will be seeing Dr. Jenkins late May. We will see if we can get this appt moved up. Her baseline weight is ~123/124lbs. In the past day or 2 she has felt more congested. She has a dry cough. She has noticed some mild leg swelling today. Denies CP, palpitations, dizziness. Objective Visit Vitals BP 146/70 (BP Location: Left arm, Patient Position: Sitting) Pulse 74 Ht 1.422 m (4' 8 ) Wt 56.2 kg (124 lb) SpO2 95% BMI 27.80 kg/m?? Smoking Status Never BSA 1.49 m?? Physical Exam Constitutional: Appearance: She is [...] murmur heard. No friction rub. No gallop. Comments: Trace pitting edema, some visible sandal imprints on her feet Pulmonary: Effort: Pulmonary effort is normal. No respiratory distress. Breath sounds: Rales (fine rales lower lobes) present. No wheezing. Chest: Chest wall: No tenderness. Abdominal: General: Bowel sounds are normal. There is distension. Palpations: Abdomen is soft. Tenderness: There is no abdominal tenderness. Musculoskeletal: Cervical back: Neck supple. Right lower leg: Edema present. Left lower leg: Edema present. Skin: General: Skin is warm [...] Rfl: 3 bumetanide (Bumex) 2 mg tablet, Take 2 tablets (4 mg) by mouth two times daily. (Patient taking differently: Take 2 mg by mouth in the morning.), Disp: 360 tablet, Rfl: 3 ergocalciferol (Vitamin D-2) 1.25 MG (43399 UT) capsule, Take 1 capsule by mouth 1 (one) time per week., Disp: , Rfl: ferrous sulfate 325 (65 Fe) MG tablet, TAKE 1 TABLET BY MOUTH EVERY OTHER DAY FOR 90 DAYS (Patient taking differently: Take 325 mg by mouth every other day.), Disp: , Rfl: folic acid (Folvite) 1 mg tablet, Take 1 mg by mouth in the morning., Disp: , Rfl: hydrALAZINE (Apresoline) 50 mg [...] if needed.), Disp: 90 tablet, Rfl: 1 midodrine (Proamatine) 5 mg tablet, Take 1 [...] Take 40 mEq by mouth in the morning., Disp: , Rfl: doxazosin (Cardura) 4 mg tablet, TAKE 1 AND 1/2 TABLETS BY MOUTH TWICE A DAY (Patient not taking: Reported on 04/15/2025), Disp: 270 tablet, Rfl: 3 metoprolol tartrate (Lopressor) 50 mg tablet, Take 1.5 tablets (75 mg) by mouth in the morning and at bedtime., Disp: , Rfl: Recent Labs No visits with results within [...] 1.8, potassium 4.3 Imaging and other tests Renal US 04/10/2025:bilateral calculi suspicious for nephrolithiasis, no hydroneprhosis Echocardiogram 10/04/2024: 1. Normal ventricular size and [...] on chronic diastolic congestive heart failure (CMS/HCC) Essential (primary) hypertension - metoprolol tartrate (Lopressor) 50 mg tablet; Take 1.5 tablets (75 mg) by mouth in the morning and at bedtime. - Basic metabolic panel; Future Coronary artery disease involving moapa coronary artery of moapa heart without angina pectoris History of coronary artery bypass surgery Stage 4 chronic kidney disease (CMS/HCC) Primary hypertension Orthostatic hypotension #Acute on chronic HFpEF -Recently admitted for worsening renal function and hypotension. She had been on bumex 4mg BID along with taking one dose of metolazone. During her admission, she was suspected to be over diuresed and her renal function was improving after receiving a little over 1L of IV fluid. She was discharged home on Bumex 2mg daily, potassium was reduced to 20mEq daily but she has been taking 40mEq daily due to her hx of chronically low K+. -She notes her weight has been stable but she has felt like she has more congestion and a dry coughthe past few days. Mild leg swelling today and fine rales lower lobes on exam. -Will have her increase bumex to 2mg BID (she was on 3mg BID prior to her recent exacerbation). -Follow-up BMP today to see if Kcl needs to be further increased. #HTN -Hypotension resolved -Will resume her normal dose of metoprolol 75mg BID -Continue hydralazine 50mg BID, amlodipine 10mg daily. Doxazosin currently on hold, consider resuming pending how her BP does. #CKD stage IV -She was scheduled to see Dr. Jenkins in 1 month but we were able to get this moved up to next week. -Appreciate nephrology's help with managing her diuretics #CAD -s/p CABG 07/2020 (discovered in the setting of unstable angina) -Denies c/o CP -Continue ASA, statin, BB #Post op a.fib -no recurrence since -RRR On exam -Continue to monitor #Valvular heart disease -Continue to monitor with routine TTEs Follow up in about 2 weeks (around 04/29/2025). Emilia To CNP documented in this encounter Plan of Treatment DateTypeDepartmentCare Team (Latest Contact Info)Kywcfnfscme23/30/2025 1:20 PM EDTOffice Visit [facility] [address] [place] [address] Emilia To CNP [address] [place] [address] NameTypePriorityAssociated DiagnosesOrder ScheduleBasic metabolic panelLab Routine Essential (primary) hypertension Expected: 04/15/2025 (Approximate), Expires: 04/15/2026documented as of this encounter Visit Diagnoses Diagnosis Acute on chronic diastolic congestive heart failure (CMS/HCC)- Primary Essential (primary) hypertension Unspecified essential hypertension Coronary artery disease involving moapa coronary artery of moapa heart without angina pectoris History of coronary artery bypass surgery Postsurgical aortocoronary bypass status Stage 4 chronic kidney disease (CMS/HCC) Primary hypertension Unspecified essential hypertension Orthostatic hypotension documented in this encounter Care Teams Team MemberRelationshipSpecialtyStart DateEnd Date John Perdomo DO [address] [place] [address] PCP - Cmybhqm00/8/22documented as of this encounter
--- OUTSIDE RECORDS SUMMARY | 2025-04-22 08:07 | XMS_ITS | Continuity of Care Document ---
Author Organization [facility] Address [address] [place] [address] Phone Care Team Providers Care Enforcement Safety Officer Name Role Phone Leanne John Mcdonough DO Primary Care Provider Sury Jenkins Attending Provider Care Teams Patient Care Team Team Status: Active Member Role/Relationship Status Dates John Perdomo DO Primary Care Provider Active Visit Care Team Team Status: Inactive Member Role/Relationship Status Dates John Perdomo DO Primary Care Provider Active Start: January 29, 2025 End: January 29Ike South ProviderActiveStart: January 29, 2025 End: January 29, 2025 Patient Care Team Team Status: Active Member Role/Relationship Status Dates John Perdomo DO Primary Care Provider Active Start: April 18, 2025 Ike Khan ProviderActiveStart: April 18, 2025 Patient Care Team Team Status: Inactive Member Role/Relationship Status Dates John Perdomo DO Primary Care Provider Active Start: April 22, 2025 End: April 22Ike South ProviderActiveStart: April 22, 2025 End: April 22, 2025 Chief Complaint and Reason for Visit Chief Complaint Admit Date Renal F/U January 29, 2025 11:3 5am lab f/u April 22, 2025 1 1:30am Reason for Visit Admit Date Anemia of [...] mellitus wit h diabetic chronic kidney disease January 29, 2025 11:35am Acute kidney injury April 22, 2025 1 1:30am Anemia of renal disease April 22 11:30am CKD (chronic kidney disease) stage 4, GF R 15-29 ml/min April 22, 2025 11:30am Hyperlipidemia April 22, 2025 1 1:30am Hypertensive chronic kidney disease with stage 1 through stage 4 chronic ki April 22, 2025 11:30am Hyperuricemia April 22, 2025 1 1:30am Hypokalemia April 22, 2025 1 1:30am Microscopic hematuria April 22, 2025 11:30am Secondary hyperparathyroidism April 222024 11:30am Type 2 diabetes mellitus wit h diabetic chronic kidney disease April 22, 2025 11:30am Allergies, Adverse Reactions, Alerts Allergen Type Severity Reaction Last Updated Verified Status erythromycin base Allergy Unknown anaphylaxis Octobe r 2024 11:34am Yes Active hydromorphone Allergy Unknown Unknown Reaction Octob er 2024 11:34am Yes Active penicillin G benzathine Allergy Unknown hives April 22, 2025 11:34am Yes Active spironolactone Allergy Unknown rash April 222024 11:34am Yes Active Social History Smoking Status Status Start Date End Date Date of Observa tion Never smoked tobacco (finding) April 22, 2025 11:41am Observation Status Observation Response Date of Response Legal Sex Female (finding) [facility] 1949 Family History Relationship Condition Age at Onset Recorded Date/T christophe daughter Hypertension Unknown fatherDeceasedUnknownHeart diseaseUnknownDementiaUnknownmotherDeceasedUnknown Heart diseaseUnknownsonHypertensionUnknownsisterFamily history of other conditionUnknown Problems Active Problems Problem Diagnosis/Recorded Date Onset Date Stat us Acute kidney injury April 22, 2025 11:41am Unknown Active Type 2 diabetes mellitus wit h diabetic chronic kidney disease September 25, 2023 3:55pm Unknown Active Secondary hyperparathyroidism September 25, 2023 3:54pm Unknown Active CKD (chronic kidney disease) stage 4, GFR 15-29 ml/min September 25, 2023 3:54pm Unknown Active Hypertensive chronic kidney disease with stage 1 through stage 4 chronic kidney disease, or unspecified chronic kidney disease September 25, 2023 3:54pm Unknown Active Hyperlipidemia September 25, 2023 3:56pm Unknown Ac tive Hyperuricemia September 05, 2023 6:36pm Unknown Acti ve Microscopic hematuria September 25, 2023 3:55pm Unknown Active Anemia of renal disease September 05, 2023 6:33pm Unknown Active Hypokalemia September 25, 2023 3:55pm Unknown Acti ve Medications Medication Status Dose Units Route Directions Qty Days Refills S tart Date Stop Date End Date Reason(s) Instructions Adherence Ferrous Sulfate 325 mg (65 mg iron) tablet Discontinue d 0 .ROUTE.[id number] 4:49pmSept2023 9:48amAnemia of renal disease Chronic kidney disease, unspecified Anemia in chronic kidney diseaseTAKE 1 TABLET BY MOUTH EVERY OTHER DAY Allopurinol 100 mg tabletDiscontinued0.ROUTE.GGEIYGW603Wjqzu2023 5:52pm March 12, 2024 9:49amHyperuricemia 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 inflammatory arthritis and tophaceous diseaseTAKE 1 TABLET BY MOUTH EVERY DAYPotassium Chloride 20 mEq tablet extended release Kqpldbvplpgq81ZRDYKDrphh times [id number] 2023 1:50pmOctober 2024 11:40amFerrous Sulfate 325 mg (65 mg iron) tabletDiscontinued0.ROUTE .TSYAESR090Bkosckltb2023 9:48amMarch 2024 4:42pmAnemia of renal disease Chronic kidney disease, unspecified Anemia in chronic kidney diseaseTAKE ONE TABLET BY MOUTH EVERY OTHER DAY FOR 90 DAYSAllopurinol 100 mg tabletDiscontinued0.ROUTE.SDJIQJC342Cnolhdzgo 10th, 2024 9:49amJanuary 2024 7:29pmHyperuricemia 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 inflammatory arthritis and tophaceous diseaseTAKE 1 TABLET BY MOUTH EVERY DAYAllopurinol 100 mg tabletDiscontinued0.ROUTE.COMPLEX 2024 7:27pmMarch 2024 4:42pmHyperuricemia 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 inflammatory arthritis and tophaceous diseaseTAKE 1 TABLET BY MOUTH EVERY DAYErgocalciferol (Vitamin D2) 1,250 mcg (50,000 unit) xeuizlvTjjhkk73704CGZYGO.JRZIICA47Ofdoabh 2024 7:32pm50,000 units orally every other week;Complies with drug therapyFerrous Sulfate 325 mg (65 mg iron) tabletDiscontinued0.ROUTE.JCJCSOD940Qifbr 2024 1:26pmSept2024 12:13pmAnemia of renal disease Chronic kidney disease, unspecified Anemia in chronic kidney diseaseTAKE ONE TABLET BY MOUTH EVERY OTHER DAY FOR 90 DAYSAllopurinol 100 mg tabletDiscontinued0.ROUTE.CWYDIAJ243Gkwiwazjc2024 12:12pmOctober 2024 11:40amHyperuricemia 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 inflammatory arthritis and tophaceous diseaseTAKE 1 TABLET BY MOUTH EVERY DAYFerrous Sulfate 325 mg (65 mg iron) tabletActive0 .ROUTE.HJBRIEQ984Dfseecpyg2024 12:12pmAnemia of renal disease Chronic kidney disease, unspecified Anemia in chronic kidney diseaseTAKE ONE TABLET BY MOUTH EVERY OTHER DAY FOR 90 DAYSComplies with drug therapyAllopurinol 100 mg rlldcjRipgmirzotup3NIYECJmhco September 05, 2023 1:00amMarc 2023 6:30pmFreeTextSig: TAKE 1 TABLET BY MOUTH EVERY DAY; Note: Source Status: Taking; Refills: 1; Qty: 90 Tablet; Provider: Gregory Bean ( )Allopurinol 100 mg qlrlomUvycwnwmkjty347HUTSBieox 2023 6:29pmMarch 2023 5:52pmHyperuricemia 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 inflammatory arthritis and tophaceous disease FreeTextSig: TAKE 1 TABLET BY MOUTH EVERY DAY; Note: Source Status: Taking; Refills: 1; Qty: 90 Tablet; Provider: Gregory Bean ( )Ferrous Sulfate 325 mg (65 mg iron) nkqkztZwbmbiixzjwg813QBKQVwyys 48 hoursMar2023 1:00amMarch 2023 6:37pmFreeTextSig: TAKE 1 TABLET BY MOUTH EVERY OTHER DAY; Note: Source Status: Taking; Refills: 1; Qty: 45 Tablet; Provider: Gregory Bean ( )Ferrous Sulfate 325 mg (65 mg iron) neeyjdEtglqqsiatnu854 MGPOEvery 48 vvmjb78279Nghrv 5th, 2024 6:32pmMarch 2023 4:49pmAnemia of renal disease Chronic kidney disease, unspecified Anemia in chronic kidney diseaseFreeTextSig: TAKE 1 TABLET BY MOUTH EVERY OTHER DAY; Note: Source Status: Taking; Refills: 1; Qty: 45 Tablet; Provider: Gregory Bean ( )Ergocalciferol (Vitamin D2) 1,250 mcg (50,000 unit) nohumarYuyvvkbtcuob15838KXAKTAEMIRF 2 WEEKSSeptember 25, 2023 12:00amJanuary 2024 7:33pmFreeTextSig: TAKE 1 CAPSULE BY MOUTH ONE TIME PER WEEK; Note: Source Status: Start; Refills: 2; Qty: 12 Capsule; Provider: Gregory Bean ( )Potassium Chloride 20 mEq tablet extended releaseDiscontinuedMEQPO September 25, 2023 12:00amMay 2023 1:52pmFreeTextSi Tablet Orally tid; Note: Source Status: Taking; Refills: 0; Qty: 540 Tablet; Provider: Gregory Bean ( )Levothyroxine 50 mcg wztwhjGywewgufwybr7EHXRGXnmrzSvgmd 25th, 2024 12:00amMarch 2024 4:42pmFreeTextSi tablet in the morning on an empty stomach Orally Once a day; Note: Source Status: Taking; Provider: Gregory Bean ( )Insulin Glargine (Basaglar Gailpen U-100 Insulin) 100 unit/mL (3 mL) insulin penDiscontinuedUNITSUBCUTMarch 2023 12:00amMarch 2024 4:42pmFreeTextSi units SQ three times a day prn; Note: Source Status: Taking*please review for potential _update for e-prescription and drug interaction check*; Provider: Gregory Bean ( )Dorzolamide-Timolol 22.3-6.8 mg/mL xrekiFofern7OIEFFHWGXLJGCUZFekzg dailyMar 2023 12:00am FreeTextSi drop into affected eye Ophthalmic Twice a day; Note: Source Status: Taking; Provider: Gregory Bean ( )Complies with drug therapyMetoprolol Tartrate 50 mg tabletDiscontinuedMGPOSt. [facility] 2023 12:00am January 08, 2024 1:08pmFreeTextSi 1/2 tablet with food Orally Twice a day; Note: Source Status: Taking; Provider: Gregory Bean ( )Amlodipine 10 mg mejroaDecmdgdsopve8WDPEKHoaqzUhosu 2023 12:00amMarch 2024 4:42pmFreeTextSi tablet Orally Once a day; Note: Source Status: Taking; Provider: Gregory Bean ( )Isosorbide Dinitrate 30 mg tabletActive 30MGPODailySt. Mary'S Medical Center 2023 12:00amFreeTextSi tablet Orally ONCE A DAY; Note: Source Status: Taking; Provider: Gregory Bean ( )Complies with drug therapyAspirin 81 mg tablet,delayed release (DR/EC)Zlohhukkmouj2EYUUK DailySt. Mary'S Medical Center 2023 12:00amMarch 2024 4:42pmFreeTextSi tablet Orally Once a day; Note: Source Status: Taking; Provider: Gregory Bean (NPI: [id number])Doxazosin 4 mg tabletDiscontinuedMGPOMarch 2023 12:00amJuly 2023 1:08pmFreeTextSi 1/2 TABLETS Orally TWICE A DAY; Note: Source Status: Taking; Provider: Gregory Bean ( )Hydralazine 25 mg tablet Xfpeweoihxoa3JOVJZVvsus times dailySt. [facility]'S Medical Center 2023 12:00amJuly 2023 1:09pm FreeTextSi tablet with food Orally Three times a day; Note: Source Status: Taking; Refills: 1; Qty: 270 Tablet; Provider: Gregory Bean ( ) Bumetanide 2 mg tabletDiscontinuedMGPOSt. Mary'S Medical Center 2023 12:00amJuly 2023 1:08pmFreeTextSi 1/2 TABLETS Orally TWICE A DAY; Note: Source Status: Taking; Provider: Gregory Bean ( )Atorvastatin 40 mg tablet Bfrhlxosidis1QLWWZPsvwsFynqd 2023 12:00amMarch 2024 4:42pm FreeTextSi tablet Orally Once a day; Note: Source Status: Taking; Provider: Gregory Bean ( )Metolazone 2.5 mg tabletDiscontinued2.5MGPOEvery 48 hours as neededSt. Mary'S Medical Center 2023 12:00amOctober 2024 11:40amFreeTextSi tablet Orally MONDAY, MONDAY, MONDAY NEEDED; Note: Source Status: Taking; Provider: Gregory Bean ( )Bumetanide 2 mg tablet Puxymnkdmuaq6JRNQZffvz dailyJuly 2023 1:04pmOctober 2024 11:40am Doxazosin 4 mg ctgiiqBupnsdxfqddk2NBDUJdbqn dailyJuly 2023 1:05pmOctober 2024 11:39amMetoprolol Tartrate 50 mg rirgmzCrgpnktruvxy66KPXUIvbzb daily January 08, 2024 1:07pmOctober 2024 11:40amHydralazine 25 mg tablet Jhkdqonmtujj71QBKPKeufb times dailyly 2023 1:09pmOct2024 11:40amAmlodipine 10 mg xduforEybemv96RKDKPjjrbQqoru 2024 4:39pmComplies with drug therapyAspirin 81 mg tablet,delayed release (DR/EC)Ileahg95ZBKXUpqnz March 2024 4:39pmComplies with drug therapyAtorvastatin 40 mg tabletActive 40MGPODailySt. Mary'S Medical Center 2024 4:39pmComplies with drug therapyInsulin Glargine (Basaglar Kwikpen U-100 Insulin) 100 unit/mL (3 mL) insulin zbmTdrjefcbfgjl61 UNITSUBCUTThree times daily as neededSt. Mary'S Medical Center 2024 4:41pmOct2024 11:40amLevothyroxine 50 mcg hsqhumFzonzpnlvgdi98ORXVAJwdsgRxcke 2024 4:42pm January 29, 2025 11:40amBumetanide 2 mg exqbjgBibuorlwbezp0NFLWWrauRuuhyla 21st, 2025 11:35amOct2024 11:55amHydralazine 25 mg yqlhiiRfrjoztrdpxn22WDJL Twice dailyG[facility] 2024 11:38amOct2024 12:02pmInsulin Glargine (Basaglar Kwikpen U-100 Insulin) 100 unit/mL (3 mL) insulin lycDxvfnd90AVLX SUBCUTOnce as neededGarden City Hospital 2024 11:38amComplies with drug therapy Metolazone 2.5 mg tabletActive2.5MGPO.COMPLEX as neededAsp[facility]2024 11:38am2.5 mg orally twice a week PRN;Complies with drug therapyBumetanide 2 mg xoklecNsaain8ITPDFovloOjuepmc 21st, 2025 11:54amComplies with drug therapy Midodrine 5 mg upywveXdgwbvhcxdis1SYTPJtdux times daily as neededJuly 2023 12:00amOct2024 11:39amAllopurinol 100 mg ulefzfAygbpwcallur997HKQF DailySt. Mary'S Medical Center 2024 4:38pmSeptember 2024 12:13pmHyperuricemia 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 inflammatory arthritis and tophaceous disease Ferrous Sulfate 325 mg (65 mg iron) glfmiuAfjntdsbgkln476CPXVLfmuw 48 hoursMarch 2024 4:40pmMarch 2024 1:26pmAnemia of renal disease Chronic kidney disease, unspecified Anemia in chronic kidney diseaseLevothyroxine 75 mcg fnmvmmGfpkop94INEKFPsbqz January 29, 2025 12:00amComplies with drug therapyFolic Acid 1 mg hdqrfvYobvjx6VM PODailyOctober 2024 12:00amComplies with drug therapyPotassium Chloride 20 mEq tablet extended nkmytzhIyvnld97ZECZGOfmeFdeczlr 2024 11:36amComplies with drug therapyAllopurinol 100 mg zwdrkjNaxqjc963CZHHGnicqKinszvm 2024 11:37amHyperuricemia 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 inflammatory arthritis and tophaceous disease Complies with drug therapyHydralazine 25 mg onohbkTyguav11EDMCDlqfg dailyOctober 2024 12:02pmComplies with drug therapy Relevant Diagnostic Tests and/or Laboratory Data Laboratory Results Test Collection Date/Time Result Date/Time Result Interpretation Reference Range Result Comment Performing Site Urine Random Creatinine April 18 9:51am April 18, 2025 9:51am 77.88 mg/dL 20.00-300.00Urine Other CastsOctober 2024 9:51amNONE SEEN #/LPFNONE SEEN Parathyroid Hormone (Intact)April 18, 2025 10:00amOctober 2024 10:00am 62 pg/pQ98-89Fzknhcanu at: [facility] [id number] Director: Curry Rizzo PhD, Phone: [phone]-Ueuuqxe Vitamin D TotalOctcardinal [facility] 2024 10:00amOctober 2024 10:00am58.2 ng/mL<20 ng/mL Vit D rtrikfsmi77-<30 ng/mL Vit D bxchtzfraxwz10-344 ng/mL Vit D sufficient>100 ng/mL Potential ToxicityFerritinOctcardinal hill rehabilitation center 2024 10:00amOctober 2024 10:77jj576.0 ng/mL8.0-252.0Magnesium LevelOctober 2024 10:00am April 18, 2025 10:00am2.4 mg/dL1.8-2.4Uric AcidOct2024 10:00am April 18, 2025 10:00am5.0 mg/dL2.6-6.0Anion GapOct2024 10:00am April 18, 2025 10:00am12.2Iron SaturationOct2024 10:00amApril 18, 2025 10:00am21.9 %HematocritOct2024 10:00amApril 18, 2025 10:00am31.7 %Below low vzfsta36.0-48.0Urine Protein/Creatinine RatioOct2024 9:51amApril 18, 2025 9:51am4.07Urine Other CrystalsOct2024 9:51amNone Seen #/HPFNone SeenAlbuminOct2024 10:00amApril 18, 2025 10:00am3.7 g/dL3.4-5.0Iron LevelOct2024 10:00amApril 18, 2025 10:00am54.0 ug/dL50.0-170.0HemoglobinOct2024 10:00am April 18, 2025 10:00am10.4 g/dLBelow low kjttho15.0-16.0Urine Random Total ProteinOct2024 9:51amOct2024 9:07of082.2 mg/dLAbove high normal<=11.9Urine BacteriaOct2024 9:51amMODERATE #/HPFAbnormal (applies to non-numeric results)NONE SEENBUN/Creatinine RatioOct2024 10:00amApril 18, 2025 10:00am21.3Total Iron Binding CapacityOct2024 10:00amApril 18, 2025 10:77tc586.0 ug/dLBelow low ofdcuc701.0-450.0Mean Corpuscular HemoglobinOct2024 10:00amApril 18, 2025 10:00am29.5 pg26.7-34.0Urine BilirubinOctober 2024 9:51amNEGATIVENEGATIVEBlood Urea NitrogenOct2024 10:00amOct2024 10:00am56.0 mg/dLAbove high normal7.0-18.0Mean Corpuscular Hemoglobin ConcentOctober 2024 10:00am April 18, 2025 10:00am32.8 g/dL29.9-35.2Urine Occult BloodOctober 2024 9:51amSMALLAbnormal (applies to non-numeric results)NEGATIVECalcium LevelOctober 2024 10:00amOct2024 10:00am9.1 mg/dL8.5-10.1Mean Corpuscular VolumeOct2024 10:00amOct2024 10:00am89.8 fL81.0-99.0Urine AppearanceOct2024 9:51amCLEARCLEARChloride LevelOct2024 10:00amOct2024 10:76co647 mmol/I84-877Xluo Platelet VolumeOct2024 10:00amOct2024 10:00am11.1 fL9.5-13.5Urine ColorOctober 2024 9:51amLT. YELLOWYELLOWCarbon Dioxide LevelOctober 2024 10:00am April 18, 2025 10:00am23.4 mmol/L21.0-32.0Platelet CountOct2024 10:00amOct2024 10:70wm967 10 3/tN514-203Psspv Glucose (UA)April 18, 2025 9:51amNEGATIVE mg/dLNEGATIVECreatinineOct2024 10:00am April 18, 2025 10:00am2.63 mg/dLAbove high normal0.55-1.02Red Blood Count April 18, 2025 10:00amOct2024 10:00am3.53 10 6/uLBelow low normal 4.20-5.40Urine KetonesOctober 2024 9:51amNEGATIVE mg/dLNEGATIVEEstimated GFR ()April 18, 2025 10:00amOct2024 10:00am22 Below low normal>=60 mL/min/1.73m 2Red Cell Distribution WidthOctober 2024 10:00amOctober 2024 10:00am14.6 %11.0-15.0Urine Leukocyte EsteraseOctober 2024 9:51amSMALLAbnormal (applies to non-numeric results)NEGATIVEEstimated GFR (Non- AmericanOct2024 10:00amOct2024 10:00am18 Below low normal>=60 mL/min/1.73m 2Corrected White Blood CountOctober 2024 10:00amOctober 2024 10:00am11.0 10 3/uL4.0-11.0Urine MucusOctober 2024 9:51amNONE SEENNONE SEENGlucose LevelOctober 2024 10:00amOctober 2024 10:44fq486 mg/dLAbove high iutpbw07-871Pdyqp NitriteOctober 2024 9:51amNEGATIVENEGATIVEPotassium LevelOctober 2024 10:00amOctober 2024 10:00am3.6 mmol/L3.5-5.1Urine pHOctober 2024 9:51am6.05.0-9.0 Sodium LevelOctober 2024 10:00amOctober 2024 10:69pq806 mmol/LBelow low -755Ktycw ProteinOctober 2024 9:51am>=300 mg/dLAbnormal (applies to non-numeric results)NEG/TRACEPhosphorus LevelOctober 2024 10:00amOctober 2024 10:00am4.6 mg/dL2.6-4.7Urine RBCOctober 2024 9:44oe1-30 #/HPFAbnormal (applies to non-numeric results)0-2Urine Specific GravityOctober 2024 9:51am1.0201.005-1.025Urine Squamous Epithelial Cells April 18, 2025 9:51amFEW #/LPFAbnormal (applies to non-numeric results) NONE/RAREUrine UrobilinogenOctober 2024 9:51am0.2 EU/dL0.2-1.0Urine WBC April 18, 2025 9:93ao8-02 #/HPFAbnormal (applies to non-numeric results)NONE SEEN Vital Signs Vital Reading Result Reference Range Collection Date/Time Height 58 [in_i] January 29, 2025 11:02vwDclcrj46.60 kgJuly 2024 11:37amHeart Rate72 /min 60-100July 2024 11:37amRespiratory rate18 /iyv58-10Mbdy 2024 11:37am Oxygen saturation by Pulse dtsyketg33 %95-100July 2024 11:37amBP Systolic 156 mm[Hg]100-140July 2024 11:37amBP Yjvvllwir23 mm[Hg]60-100July 2024 11:37amBMI (Body Mass Index)26.5 kg/m2July 2024 11:66zdQliynr20 [in_i]April 22, 2025 11:40vhEsldkh06.75 kgOctober 2024 11:32amBody Zhzhxfphmej63.3 [degF]97.6-99.0October 2024 11:32amHeart Rate76 /ncu19-018 April 22, 2025 11:32amRespiratory rate18 /adk57-68Ydrhivy 2024 11:32am Oxygen saturation by Pulse xzxdpbma00 %95-100October 2024 11:32amBP Spsfssfn586 mm[Hg]100-140October 2024 11:32amBP Mirgagtpn84 mm[Hg]60-100 April 22, 2025 11:32amBMI (Body Mass Index)26.1 kg/k8Fwhvqtv 2024 11:32am Advance Directives Advance Directive Response Recorded Date/ Time Advance Directives No July 27, 2021 11:36am Insurance Providers Guarantor Claudia Polo Address [address] [place] [id number] Info.Home Phone: Payer Group Member ID Coverage Type Subscriber Relationship to Subscriber Effective Date Expiration Date MMO Retired Id: [id number] E Musser Id: [id number] [address] [place] [address] Home Phone: Email: [email or web address] E Musser Id: [id number] [place] [address] Home Phone: Email: [email or web address] Encounters Encounter Location(s) Arrival/Admit Date Discharge/Departure Date Discharge/Departure Disposition Provider(s) Departed Physician/ Provider Office Visit -[facility] [place] January 29, 2025 11:35am January 29, 2025 12:08pm Discharged to home care or self care (routine discharge) Geneva Jenkins MD Non-patient / Non-visit -[facility] O ctober 2024 10:00am DORA Khaneparted Physician/Provider Office [facility] 2024 12:06pmDischarged to home care or self care (routine discharge)Geneva Jenkins MD Recent Diagnosis Onset Date Admit Date Anemia of renal disease Unknown December 11:35am CKD (chronic kidney disease) stage 4, GFR 15-29 ml/min Unknown January 29, 2025 11:35am Hyperlipidemia Unknown January 29, 2025 11:35am Hypertensive chronic kidney disease with stage 1 through stage 4 chronic ki Unknown January 29, 2025 11:35am Hyperuricemia Unknown January 29, 2025 11:35am Hypokalemia Unknown January 29, 2025 11:35am Microscopic hematuria Unknown January 29, 2025 11:35am Secondary hyperparathyroidism Unknown 2024 11:35am Type 2 diabetes mellitus wit h diabetic chronic kidney disease Unknown January 29, 2025 11:35am Acute kidney injury Unknown April 11:30am Anemia of renal disease Unknown April 22, 2025 11:30am CKD (chronic kidney disease) stage 4, GFR 15-29 ml/min Unknown April 22, 2025 11:30am Hyperlipidemia Unknown April 22 11:30am Hypertensive chronic kidney disease with stage 1 through stage 4 chronic ki Unknown April 22, 2025 11:30a m Hyperuricemia Unknown April 22 11:30am Hypokalemia Unknown April 22 11:30am Microscopic hematuria Unknown April 222024 11:30am Secondary hyperparathyroidism Unknown Oc 2024 11:30am Type 2 diabetes mellitus wit h diabetic chronic kidney disease Unknown April 22, 2025 11:30am Assessments Diagnosis Onset Date Resolution Status Admit Date Anemia of renal disease acuteJuly 2024 11:35amCKD (chronic kidney disease) stage 4, GFR 15-29 ml/minacuteJuly 2024 11:35amHyperlipidemiaacuteJuly 2024 11:35am Hypertensive chronic kidney disease with stage 1 through stage 4 chronic [place] January 29, 2025 11:35amHyperuricemiaacuteJuly 2024 11:35amHypokalemiaacute January 29, 2025 11:35amMicroscopic hematuriaacuteJuly 2024 11:35am Secondary hyperparathyroidismacuteJuly 2024 11:35amType 2 diabetes mellitus with diabetic chronic kidney diseaseacuteJuly 2024 11:35amAcute kidney injuryacuteApril 22, 2025 11:30amAnemia of renal diseaseacuteApril 22, 2025 11:30amCKD (chronic kidney disease) stage 4, GFR 15-29 ml/minacute April 22, 2025 11:30amHyperlipidemiaacuteOctober 2024 11:30am Hypertensive chronic kidney disease with stage 1 through stage 4 chronic k[place] April 22, 2025 11:30amHyperuricemiaacuteAprober 2024 11:30am HypokalemiaacuteApril 22, 2025 11:30amMicroscopic hematuriaacuteApril 22, 2025 11:30amSecondary hyperparathyroidismacuteApril 22, 2025 11:30am Type 2 diabetes mellitus with diabetic chronic kidney diseaseacuteAprober 2024 11:30am Plan of Treatment Author Geneva Jenkins [facility] ShawAuthoredJuly 2024 12:10pmShkaz has CKD due to DM and HTN with SCr 2.2-2.3 mg/dl. She has worsening proteinuria likely due to the progression of CKD. Her renal US showed left nephrolithiasis and possible Fibroid. I discussed with her the importance of good DM and HTN control to slow down the progression of CKD. I explained to her possible need of RETAIL EVENT ASSISTANT in the future and discussed with her different option of RETAIL EVENT ASSISTANT including PD HD and renal transplant. She seems to be interested in PD. I have sent it for kidney smart classes. Blood pressure is usually controlled and she appears to be euvolemic. Will continue current dose of the antihypertensive medication and diuretics. Advised her to monitor blood pressure and weight at home and call office if she is gains 2 pounds in 24 hours or 5 pounds in 1 week. She had hypokalemia due to diabetic induced renal potassium wasting. Her serum potassium is back to normal with the oral potassium. Will Continue current dose of oral potassium chloride. She has a secondary hyperparathyroidism due to the CKD and her calcium, phosphorus and vitamin D are within the goal. Advised her to take low phosphorus diet and provide information about it She has anemia due to the CKD and iron deficiency. Advised to continue oral iron every other day. She does not want to have colonoscopy or EGD. She had unremarkable workup for paraproteinemia including serum free light chain ratio, SPEP, serum and urine immunofixation. Blood sugars are within the acceptable range. Advised to continue follow-up with the PCP for DM management. She has nephrotic range proteinuria but not on TOLU or ARB due to the recurrent ORI in setting of CHF and fluid overload. She has microscopic hematuria and was seen by Dr. Love. She underwent Cystoscopy and reported that it was unremarkable. Will continue statins. Continue follow-up with PCP for monitoring of LFTs and lipid profile. She has hyperuricemia due to CKD but denies any recent gout flareup. Will continue dose of the allopurinol Future Tests Future scheduled test information is unavailable Pending Tests Test Name Ordered Date Scheduled Date Renal Function Panel January 29, 2025 12:02pm 4 M [facility] Renal Function Panel April 22, 2025 12:03pm 6 Weeks Future Visits Future appointment information is unavailable Future Procedures Procedure Name Ordered Date Scheduled Date Dipstick and Microscopic January 29, 2025 12:02pm 4 Months Ferritin January 29, 2025 12:02pm 4 Months Uric Acid January 29, 2025 12:02pm 4 Months Hemogram CBC Without Diff April 22, 2025 12: 03pm 6 Weeks Iron and TIBC Profile April 22, 2025 12:03pm 6 Weeks Ferritin April 22, 2025 12:03pm 6 Wee marcelino Magnesium April 22, 2025 12:03pm 6 Ricardo benson Protein Creat Ratio Ur Random April 22, 2025 12:03pm 6 Weeks Parathyroid Hormone Intact April 22, 2025 12 :03pm 6 Weeks Uric Acid April 22, 2025 12:03pm 6 Ricardo benson Vitamin D 25 Hydroxy Total April 22, 2025 12 :03pm 6 Weeks Future Medications Future medication information is unavailable Patient Instructions Patient instructions are unavailable
--- OUTSIDE RECORDS SUMMARY | 2025-04-25 14:17 | XMS_ITS | Clinical Summary ---
Author Organization [facility] Address [address] [facility] [place] [address] Care Team Providers Care Phone Operator Name Role Phone John Perdomo MD Unavailable [phone] Unallocated, Noms Provider MD Primary Care Provi kortney Allergies Active AllergyReactionsCriticalityNoted DateCommentsErythromycinAnaphylaxis, Other,LrzjerxGzfo38/08/2022Erythromycin MoudYaltumfkmidYewi62/08/2022 WegwadrczevhgTgzbk37/08/2022enicillin GFdjeh8605/08/2023enicillinsHives 05/10/20229147CifomlrahflnvyKkmeNhh16/04/2024 Medications MedicationSigDispense QuantityRefillsLast FilledStart DateEnd DateStatus potassium chloride CR (K-Tab) 20 MEQ ER tablet Take 40 mEq by mouth in the morning and 40 mEq in the evening and 40 mEq before bedtime.04/10/2023ctive nitroglycerin (Nitrostat) 0.[address] 1 TABLET UNDER TONGUE EVERY 5 MINUTES IF NEEDED FOR CHEST PAINActive metoprolol tartrate (Lopressor) 50 MG tablet Take 1.5 tablets by mouth in the morning and 1.5 tablets before bedtime. 09/13/2022ctive metOLazone (Zaroxolyn) 2.5 MG tablet TAKE 1 TABLET BY MOUTH TWICE WEEKLYActive levothyroxine (Synthroid, Levoxyl) 50 MCG tablet Take 1 tablet by mouth in the morning.Active hydrALAZINE (Apresoline) 50 MG tablet TAKE 1 TABLET BY MOUTH THREE TIMES A DAY FOR 90 DAYS08/11/2022ctive ferrous sulfate 325 (65 Fe) MG tablet Take 1 tablet by mouth every other day.Active ergocalciferol (Vitamin D-2) 1.25 MG (56842 UT) capsule Take 1 capsule by mouth 1 (one) time per week.Active doxazosin (Cardura) 4 MG tablet TAKE 1 AND 1/2 TABLETS BY MOUTH TWICE DAILY FOR 90 DAYS10/24/2022ctive bumetanide (Bumex) 2 MG tablet Take 1.5 tablets by mouth in the morning and 1.5 tablets before bedtime.Active atorvastatin (Lipitor) 40 MG tablet Take 1 tablet by mouth at bedtime.12/22/2022ctive aspirin 81 MG EC tablet Take 1 tablet by mouth in the morning.Active allopurinol (Zyloprim) 100 MG tablet TAKE 1 TABLET BY MOUTH EVERY DAY FOR 90 DAYSActive midodrine (Proamatine) 5 MG tablet Take 5 mg by mouth in the morning and 5 mg in the evening and 5 mg before bedtime.Active amLODIPine (Norvasc) 10 MG tablet Take 1 tablet by mouth Daily10/28/2020ctive cycloSPORINE (Restasis) 0.05 % ophthalmic emulsion 1 (one) time each day at the same timeActive dexAMETHasone (Ozurdex) 0.7 MG ocular implant as directed IntravitrealActive Docusate Sodium (DSS) 100 MG capsule every 12 (twelve) hoursActive fluocinolone (Iluvien) 0.19 MG implant as directed IntravitrealActive isosorbide mononitrate ER (Imdur) 30 MG 24 hr tablet TAKE 1 TABLET BY MOUTH EVERY MORNING *DO NOT CRUSH OR CHEW*08/17/2023ctive latanoprost (Xalatan) 0.005 % ophthalmic solution 1 (one) time each day at the same timeActive liothyronine (Cytomel) 5 MCG tablet TAKE 2 TABLETS BY MOUTH ONCE A DAY08/11/2023ctive dorzolamide-timolol (Cosopt) 2-0.5 % ophthalmic solution Twice daily09/25/2023ctive isosorbide dinitrate (Isordil) 30 MG tablet Daily09/25/2023ctive dorzolamide-timolol (Cosopt) 2-0.5 % ophthalmic solution Indications:Primary open angle glaucoma (POAG) of both eyes, mild stage ADMINISTER 1 DROP INTO BOTH EYES IN THE MORNING AND 1 DROP BEFORE BEDTIME. 30 mL 109506Active Active Problems ProblemNoted DateDiagnosed DateNontoxic multinodular msaqfq4009/27/2023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 type1 diabetes smfgagzk60/06/2023orneal scar, right eye05/08/2023ry eyes 05/08/2023rimary open angle glaucoma (POAG) of both eyes, mild stage05/08/2023 Encounters DateTypeDepartmentCare BjgfMfpdqyrmeou12/21/2025Refill [facility] [address] [place] [address] Johnathon Yanez, Primary open angle glaucoma (POAG) of both eyes, mild stagefrom Last 3 Months Family History Medical HistoryRelationNameCommentsHypertensionDaughterDementiaFatherHeart diseaseFatherMental illnessFatherHeart diseaseMaternal GrandmotherHeart disease MotherHeart diseaseOtherSpouseHypertensionOtherSpouseHypertensionPaternal GrandmotherStrokePaternal GrandmotherDiabetesSisterMental illnessSister HypertensionSonRelationNameStatusCommentsDaughterAliveFatherDeceasedMaternal GrandfatherDeceasedMaternal GrandmotherDeceasedMotherDeceasedOtherSpouseAlive Paternal GrandfatherDeceasedPaternal GrandmotherDeceasedSisterSonAlive Social History Tobacco UseTypesPacks/DayYears UsedDateSmoking Tobacco: NeverSmokeless Tobacco: Never Tobacco Cessation:Counseling Given: Not Answered Alcohol UseStandard Drinks/WeekCommentsNever0 (1 standard drink = 0.6 oz pure alcohol)caffeine intake: 1-2 cups per day soda/pop 1-2 cans per week CommentsUnknownSex and Gender InformationValueDate RecordedSex Assigned at Cabgjl2105/01/2023 9:06 AM EDTLegal DqgVeexxw12/01/2023 8:34 PM EDTGender Identity Eqrjfn0405/01/2023 9:06 AM EDTSexual OrientationNot on file Last Filed Vital Signs Vital SignReadingTime TakenCommentsBlood Gnsvcrql251/52009/27/2023 11:29 AM EDT Pulse--Temperature--Respiratory Rate--Oxygen Saturation--Inhaled Oxygen Concentration--Cyzwbg04.9 kg (132 lb)09/27/2023 11:29 AM XFMHmifkc171.2 cm (4' 8 )09/27/2023 11:29 AM EDTBody Mass Index29.59009/27/2023 11:29 AM EDT Plan of Treatment DateTypeDepartmentCare Team (Latest Contact Info)Xauqgwcuwdu13/03/2025 1:15 PM ESTOffice Visit [facility] [address] [place] [address] Johnathon Yanez DO [address] [place] [address] Health MaintenanceDue DateLast DoneCommentsCT Zrjvrpultuyj1951Colonoscopy 1950olorectal Cancer Bvqdvfqfs1951FIT-DNA1951FIT1950 FOBT1950Medicare Annual Wellness (AWV)04/23/19519489Tpthbaxrsrtcc1951 Diabetes: Urine Protein Yquxbsszj17/22/1970Pneumococcal Vaccine: 65+ Years (1 of 2 - PCV)04/23/19706509Lgqhmltvs96/22/1991Diabetes: Hemoglobin A1C10/08/2020 07/10/2020Influenza Vaccine (#1)2025Diabetes: Retinopathy Screening 6011/26/2024, 11/26/2024, 11/26/2024, Additional history exists Insurance Care Teams Team MemberRelationshipSpecialtyStart DateEnd Date Unallocated, Noms MD Marcelo [address] [place] [address] PCP - GeneralFamily Medicine08/18/23 John Perdomo MD [address] [place] [id number] Referring PhysicianOrthopaedic Jondibf74/6/23
--- OUTSIDE RECORDS SUMMARY | 2025-04-25 14:17 | XMS_ITS | Patient Health Record ---
Author Organization [facility] Address [address] [place] [address] Care Team Providers Care Dandy Operator Name Role Phone John Perdomo Primary Care Provider Allergies Allergen (clinical drug ingredient) Drug/Non Drug Allergy documented on EMR Reaction Allergy Type Onset Date Status erythromycin Erythromycin Base anaphylaxis Drug Allergy ActivePenicillinhivesDrug AllergyActive Results Component Value Reference Range Notes DEXA Axial Skeleton (hips, p jacobo, spine)* Reviewed date:01/28/2025 08:24:17 AM Interpretation: Performing Lab: Notes/Report: Reason For Referral No Information Medications Medication SIG (Take, Route, Frequency, Duration) Notes Start Date End Date Status Ferrous Sulfate 325 (65 Fe) MG 1 tablet Orally E very other day for 90 days ActiveKlor-Con M20 20 MEQ2 tablets Orally Three times a dayActiveMetoprolol Tartrate 50 MG1 1/2 tablets Orally Twice a dayActivemetOLazone 2.5 MG1 tablet Orally twice a week as neededprn weight gainActiveAtorvastatin Calcium 40 MG1 tablet Orally Once a day at bedtimeActiveamLODIPine Besylate 10 MG1 tablet Orally Once a dayActiveIsosorbide Mononitrate ER 30 MG1 tablet in the morning Orally Once a dayActivehydrALAZINE HCl 50 MG1 tablet with food Orally Three times a dayActiveErgocalciferol 1.25 MG (47210 UT)1 capsule Orally Once every other weekActiveOzurdex 0.7 MGas directed IntravitrealUnknownBumetanide 2 MG1 1/2 tablets Orally BIDActiveLatanoprost 0.005 %1 drop into both eyes at bedtime Ophthalmic Once a dayUnknownAspirin 81 MGChew and swallow 1 tablet Orally Daily ActiveSpironolactone 25 MG1 tablet OrallyUnknownRestasis 0.05 %1 drop into affected eye(s) Ophthalmic DailyEye drops in a dropperetteUnknown Dorzolamide-TimololActiveDoxazosin Mesylate 4 MG1.5 tablet Orally BIDActive Clindamycin HCl 300 MG1 capsule Orally bid; Duration: 10 day(s)06/01/2022Unknown Allopurinol 100 MG1 tablet Orally Every day for 90 daysActiveLevothyroxine Sodium 75 MCG1 tablet in the morning on an empty stomach Orally Once a day; Duration: 90 daysplease call pt and tell her this is her new higher dose to take 5ActiveBasaglar KwikPen 100 UNIT/ML15 units Subcutaneous tidActive Levothyroxine Sodium 50 MCGTAKE 1 TABLET BY MOUTH EVERY DAY FOR 30 DAYS; Duration: 30ActiveIluvien 0.19 MGas directed IntravitrealActiveNitroglycerin 0.4 MGOne tablet Sublingual Every 5 minutes as needed for chest painDO NOT EXCEED A TOTAL OF 3 DOSES IN 15 MINUTES AND THEN CALLActiveCipro 500 MG1 tablet Orally BID; Duration: 7 Days07/27/2022UnknownThera Tears AllergyActive Social History Tobacco Use: Social History Observation Description Date Details (start date - stop date) Never Smoker NA - NA Tobacco Use/Smoking Question Answer Notes Patient is a nonsmoker Alcohol Screen (Audit-C) Question Answer Notes Did you have a drink containing alcohol in the p ast year? 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)Activeconfirmed f/u eye doctor as directed continue eye gtts and off acyclovir stable ProblemAnemia in chronic kidney disease (146851619)Anemia in chronic kidney disease (D63.1)ActiveconfirmedProblemNon-toxic multinodular goiter (60612615) Nontoxic multinodular goiter (E04.2)ActiveconfirmedlabsProblemDiabetic renal disease (194580778)Type 2 diabetes mellitus with diabetic chronic kidney disease (E11.22)Activeconfirmed urine microalb yearly BS check tid ac and hs continue basaglar 15 bid diet/exercise eye exam yearly foot exam daily A1c today improved - recheck in 6 months f/u hot stick man as directed ProblemVitamin D deficiency (79389855)Vitamin D deficiency, unspecified (E55.9) ActiveconfirmedProblemOverweight (033066377)Overweight (E66.3)Activeconfirmed Problem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 inflammatory arthritis and tophaceous disease (648474556)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 inflammatory arthritis and tophaceous disease (E79.0)Activeconfirmed continue allopurinol 100mg daily diet monitor uric acid - goal less than 6 may need to change to uloric if needs more medication due to CKD ProblemChronic diastolic heart failure (792456660)Chronic diastolic (congestive) heart failure (I50.32)ActiveconfirmedProblemAcute on chronic diastolic heart failure (326543376)Acute on chronic diastolic (congestive) heart failure (I50.33)ActiveconfirmedProblemOsteoarthritis of knee (346892550)Unilateral primary osteoarthritis, left knee (M17.12)Activeconfirmed f/u PT rec weight loss ?injections ProblemDisplacement of cervical intervertebral disc without myelopathy (13726404)Other cervical disc displacement, unspecified cervical region (M50.20) Activeconfirmed monitor stable PT/injections if worsens ProblemDisorder of bone (11662141)Other specified disorders of bone density and structure, unspecified site (M85.80)Activeconfirmed rec prolia monitor vit D set up dexa exercise ProblemChronic kidney disease stage 4 (003372721)Chronic kidney disease, stage 4 (severe) (N18.4)ActiveconfirmedProblemSecondary hyperparathyroidism of renal origin (71160790)Secondary hyperparathyroidism of renal origin (N25.81)Active confirmedProblemMedical examination for suspected condition (526375422)Encounter for observation for other suspected diseases and conditions ruled out (Z03.89) Activeconfirmedf/u eye doctor as directedProblemCongestive heart failure (23590844)CHF (congestive heart failure) (I50.9)ActiveconfirmedProblemCoronary artery disease (23068539)CAD (coronary artery disease) (I25.10)Activeconfirmed ProblemVitamin D deficiency (10364868)Vitamin D deficiency (E55.9)Active confirmedProblemAcquired hypothyroidism (770021224)Acquired hypothyroidism (E03.9)ActiveconfirmedProblemSystolic heart failure (276094273)Systolic CHF (I50.20)ActiveconfirmedProblemAtherosclerotic heart disease of [place] coronary artery without angina pectoris (825340405591449)Coronary artery disease involving [place] heart without angina pectoris, unspecified vessel or lesion type (I25.10)ActiveconfirmedProblemAtherosclerotic heart disease of [place] coronary artery without angina pectoris (699482810862567)Atherosclerosis of [place] coronary artery without angina pectoris, unspecified whether [place] or transplanted heart (I25.10)Activeconfirmed s/p CABG x2 stable monitor BP control f/u cardiology as directed later today continue statin/bblocker/norvasc hold on TOLU due to CKD s/p CABG x 2 - 07/2020 ProblemHypothyroidism (93407826)Hypothyroidism, unspecified type (E03.9)Active confirmed levothyroxine increased to 50 mcg daily recently monitor labs and adjust med if needed ProblemEssential hypertension (01293551)BP (high blood pressure) (I10)Active confirmedProblemPure hypercholesterolemia (186706575)Pure hypercholesterolemia (E78.00)ActiveconfirmedProblem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, 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) ActiveconfirmedProblemPrimary hypertension (73541358)Primary hypertension (I10) ActiveconfirmedProblemMild nonproliferative retinopathy due to diabetes mellitus (disorder) (585388071)Mild nonproliferative diabetic retinopathy of both eyes without macular edema associated with type 2 diabetes mellitus (E11.3293)Active confirmedProblemTear film insufficiency (77225144)Dry eye syndrome of lacrimal gland, unspecified laterality (H04.129)Activeconfirmedf/u opthamologist and continue eye gtts/ointProblemMalnutrition of mild degree (Shell: 75% to less than 90% of standard weight) (54782418)Mild protein malnutrition (E44.1)Active confirmedProblemMild nonproliferative retinopathy of bilateral eyes due to diabetes mellitus type 2 (disorder) (84012698899146467)Type 2 diabetes mellitus with mild nonproliferative retinopathy of both eyes without macular edema, unspecified whether intermediate manager insulin use (E113293)Activeconfirmed urine microalb yearly BS check tid ac and hs continue basaglar 15 bid diet/exercise eye exam yearly foot exam daily A1c today improved - recheck in 6 months f/u hot stick man as directed ProblemDiabetic renal disease (579937869)Type 2 diabetes mellitus with diabetic nephropathy, unspecified whether intermediate manager insulin use (E11.21)Activeconfirmed urine microalb yearly BS check tid ac and hs continue basaglar 15 bid diet/exercise eye exam yearly foot exam daily A1c today improved - recheck in 6 months f/u hot stick man as directed ProblemChronic kidney disease stage 3 (disorder) (225672281)Chronic kidney disease, stage 3 unspecified (N18.30)Activeconfirmed urine microalb yearly BS check tid ac and hs continue basaglar 15 bid diet/exercise eye exam yearly foot exam daily A1c today improved - recheck in 6 months f/u hot stick man as directed ProblemChronic kidney disease stage 4 (339957379)Acute worsening of stage 4 chronic kidney disease (N18.4)Activeconfirmed Vital Signs Heart Rate 70 /min 12/05/2024 Respiratory Rate16 /min12/05/20246087Byqtvfww69 %12/05/2024lood pressure diastolic 68 mm Hg12/05/20244262Sqhiek91 in12/05/2024lood pressure pdnqzsiv244 mm Hg 12/05/20242703Cmjovj049.8 lbs12/05/2024BMI28.65 kg/m212/05/2024 Encounters Encounter Location Date Provider Diagnosis [facility] [address] [place] [address] 05/09/2024 John Perdomo [facility] [place] [address] [place] [address]/10/2024 John [facility] [place] [address] [facility] [place] [address]/[facility] [place] [address]/[facility] [place] [address]/[facility]Ac[facility] hypothyroidism E03.9 ; Pure hypercholesterolemia E78.00 ; Hypokalemia E87.6 ; Vitamin D def iciency E55.9 ; Essential (primary) hypertension I10 ; Type 2 diabetes mellitus with diabetic chronic kidney disease E11.22 ; Secondary hyperparathyroidism of renal origin N25.81 and Other fatigue R53.83[facility] [place] [address]/10/2024Dashadel HerringEncounter for Medicare annual wellness exam Z00.00 ; Encounter for [...] E78.00 ; Anemia in chronic kidney disease D63 .1 ; Chronic diastolic (congestive) heart failure I50.32 ; Vitamin D deficiency E55.9 ; Acquired hypothyroidism E03.9 ; Hypokalemia E87.6 ; Chronic kidney disease, stage 4 (severe) N18.4 and 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00)04/29/2024Hypokalemia (ICD-10 - E87.6)12/05/2024symptomatic menopausal state (ICD-10 - Z78.0)12/05/2024 Overweight (ICD-10 - E66.3)diet/mbdoemys49/28/2024Vitamin D deficiency (ICD-10 - E55.9)04/29/2024Essential (primary) hypertension (ICD-10 - I10) continue norvasc 10mg daily and metoprolol 50mg 1.5 po bid and doxazosin 4mg 1.5 po bid f/u cardio as directed BP check daily goal less than 130/80 diet/exercise get copy of labs done by cardio recently 12/05/2024ody mass index [BMI] 28.0-28.9, adult (ICD-10 - Z68.28)12/05/2024Type 2 diabetes mellitus with diabetic chronic kidney disease (ICD-10 - E11.22) f/u neph as directed stable diet/exercise continue meds 04/29/2024Type 2 diabetes mellitus with diabetic chronic kidney disease (ICD-10 - E11.22) urine microalb yearly BS check tid ac and hs continue basaglar 15 bid diet/exercise eye exam yearly foot exam daily A1c today improved - recheck in 6 months f/u hot stick man as directed 04/29/2024Secondary hyperparathyroidism of renal origin (ICD-10 - N25.81) 12/05/2024Essential (primary) hypertension (ICD-10 - I10) bp check daily goal <130/80 diet/exercise monitor bmp and urine microalbumin yearly 12/05/2024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 inflammatory arthritis and tophaceous disease (ICD-10 - E79.0) stable lab yearly - goal <6 diet 04/29/2024Other fatigue (ICD-10 - R53.83)12/05/2024Pure hypercholesterolemia (ICD-10 - E78.00) LDL goal <70 diet/exercise labs yearly stable 5Anemia in chronic kidney disease (ICD-10 - D63.1) monitor stable 5Chronic diastolic (congestive) heart failure (ICD-10 - I50.32) f/u cardio as directed monitor weight and bmp ER if SOB/CP 12/05/2024Vitamin D deficiency (ICD-10 - E55.9)lab yearly - adjuse med prn 5Acquired hypothyroidism (ICD-10 - E03.9) increase med - monitor labs uncontrolled 12/05/2024Hypokalemia (ICD-10 - E87.6)bmp yearly and adjust med as needed 12/05/2024hronic kidney disease, stage 4 (severe) (ICD-10 - N18.4) f/u neph bp/bs control stable 12/05/2024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, bilateral (ICD-10 - E11.3413) see above stable f/u eye doctor yearly 12/05/2024Other Plan Of Treatment Pending Test Test Name Order Date HEMOGLOBIN A1C (GLYCO) 03/01/2023 LIPID PANEL (CHOL/TRIG/HDL/LDL) 03/01/20 23 MICROALBUMIN with ALB/CREAT RATIO, URINE (MALB)) 03/01/2023 T3 FREE (T3FR) 03/01/2023 T4 FREE (T4FR) 03/01/2023 TSH 03/01/2023 MAMM SCREEN BILAT ALAINA 3D GLOBAL* 2024 Next Appt Details Provider Name:John browne, 06/11/2025 01:00:00 PM, [address] [place], [address], Insurance Providers Payer Name Payer Address Payer Phone Subscriber Number Group Number Insured Name Patient Relationship to Insured Coverage Start Date Coverage End Date [place]IC[place] [address] [place] [place] [address] [id number] Marko Poloelf - patient is the [id number] MEDICARE [address]PP[address] [place] [id number], Sharon Self - patient is the [id number] 2019 Medical (General) History Medical History History ICD Code Diabetes HypertensionOsteoporosishyperuricemiackd-4vit D deficiencyhypothyroidismCHF - diastoliccad s/p CABGhyperlipidemiasecondary hyperparathyroidismhypokalemiairon def anemiaanemia of CKDb/l diabetic retinopathyb/l macular edemaglaucomaPAF 2020 post oppulm HTNSurgical History Surgery Date(Month/Year) Ovarian cyst removal Right foot surgeryThyroid bxCataracts (b/l)11/06/2019Total knee replacement (L) 05/01/2020Cardiac catheterization +CAD1AppendectomyCesarean delivery CholecystectomyOpen heart surgery - double haepto301Arthroscopic/knee - torn kgapltew5010
--- OUTSIDE RECORDS SUMMARY | 2025-04-25 14:18 | XMS_ITS | Encounter Summary ---
Author Organization [facility] Address [address] [place] [address] Care Team Providers Care Small Engine Trainer Name Role Phone John Perdomo DO Primary Care Provider [phone] Encounter Details DateTypeDepartmentCare Team (Latest Contact Info)Bcixrmjtlfn36/09/2025Telephone [address] [address] Julita [place] MA Social History Tobacco UseTypesPacks/DayYears UsedDateSmoking Tobacco: NeverSmokeless Tobacco: NeverAlcohol UseStandard Drinks/WeekCommentsNot Currently0 (1 standard drink = 0.6 oz pure alcohol)MS Safety & EnvironmentAnswerDate RecordedFear of Current or Ex-PartnerNot on file08/24/2023Emotionally AbusedNot on file08/24/2023hysically AbusedNot on file08/24/2023Sexually AbusedNot on file08/24/2023hysically or Sexually AbusedNot on file08/24/2023CommentsUnknownSex and Gender InformationValueDate RecordedSex Assigned at KawjlHkmquv30/17/2022 6:11 PM EST Legal UhqNifylr36/30/2022 12:22 AM EDTGender FbbtgkvuDtyuit30/17/2022 6:11 PM ESTSexual OrientationHeterosexual or Vvczvtpq52/17/2022 6:11 PM ESTdocumented as of this encounter Plan of Treatment DateTypeDepartmentCare Team (Latest Contact Info)Zgvtxchfjxp95/30/2025 1:20 PM EDTOffice Visit [facility] [address] [place] [address] Emilia To, FORMATION FRACTURING OPERATOR [address] [place] [place] [address] documented as of this encounter Visit Diagnoses Not on filedocumented in this encounter Care Teams Team MemberRelationshipSpecialtyStart DateEnd Date John Perdomo DO [address] [place] [address] PCP - Rnulyvf10/8/22documented as of this encounter
--- OUTSIDE RECORDS SUMMARY | 2025-04-25 14:18 | XMS_ITS | Encounter Summary ---
Author Organization [facility] Address [address] [place] [address] Care Team Providers Care Supervisor [employer] Name Role Phone John Perdomo DO Primary Care Provider [phone] Encounter Details DateTypeDepartmentCare Team (Latest Contact Info)Llzwoukkrln68/09/2025Orders Only [facility] [address] [place] [address] Provider, [place] [address] Social History Tobacco UseTypesPacks/DayYears UsedDateSmoking Tobacco: NeverSmokeless Tobacco: NeverAlcohol UseStandard Drinks/WeekCommentsNot Currently0 (1 standard drink = 0.6 oz pure alcohol)CT Safety & EnvironmentAnswerDate RecordedFear of Current or Ex-PartnerNot on file08/24/2023Emotionally AbusedNot on file08/24/2023hysically AbusedNot on file08/24/2023Sexually AbusedNot on file08/24/2023hysically or Sexually AbusedNot on file08/24/2023CommentsUnknownSex and Gender InformationValueDate RecordedSex Assigned at ZqmpfSzhnpb27/17/2022 6:11 PM EST Legal PvnIzfbdh19/30/2022 12:22 AM EDTGender EfgnwertElgshs90/17/2022 6:11 PM ESTSexual OrientationHeterosexual or Lheyvujz25/17/2022 6:11 PM ESTdocumented as of this encounter Plan of Treatment DateTypeDepartmentCare Team (Latest Contact Info)Cqyvsdzmlvv91/30/2025 1:20 PM EDTOffice Visit [facility] [address] [place] [address] Emilia To, BPM SOLUTION ARCHITECT [address] [place] [address] documented as of this encounter Procedures Procedure NamePriorityDate/TimeAssociated DiagnosisCommentsBASIC METABOLIC PANEL Gycewst0804/10/2025 2:45 PM EDTdocumented in this encounter Results * Basic metabolic panel (04/10/2025 2:45 PM EDT)Specimen (Source)Anatomical Location / LateralityCollection Method / VolumeCollection TimeReceived Time BloodVenous blood specimen / Unknown Narrative Authorizing ProviderResult TypeResult StatusHistorical Provider NEDRA BLOOD ORDERABLESFinal Result documented in this encounter Visit Diagnoses Not on filedocumented in this encounter Care Teams Team MemberRelationshipSpecialtyStart DateEnd Date John Perdomo DO [address] [place] [address] PCP - Pvumici02/8/22documented as of this encounter
--- OUTSIDE RECORDS SUMMARY | 2025-04-25 14:18 | XMS_ITS | Encounter Summary ---
Author Organization [facility] Address [address] [place] [address] Care Team Providers Care Top Distribution Executive Name Role Phone John Perdomo DO Primary Care Provider [phone] Encounter Details DateTypeDepartmentCare Team (Latest Contact Info)Evnmlthxutl20/24/2025Orders Only [facility] [address] [place] [address] Michelle Dias MA Shortness of breath (Primary Dx) Social History Tobacco UseTypesPacks/DayYears UsedDateSmoking Tobacco: NeverSmokeless Tobacco: NeverAlcohol UseStandard Drinks/WeekCommentsNot Currently0 (1 standard drink = 0.6 oz pure alcohol)MI Safety & EnvironmentAnswerDate RecordedFear of Current or Ex-PartnerNot on file08/24/2023Emotionally AbusedNot on file4Physically AbusedNot on file08/24/2023Sexually AbusedNot on file08/24/2023hysically or Sexually AbusedNot on file08/24/2023CommentsUnknownSex and Gender InformationValueDate RecordedSex Assigned at JvoylCgvzgh53/17/2022 6:11 PM EST Legal YurKbptxk63/30/2022 12:22 AM EDTGender VviwlkwmPppfin44/17/2022 6:11 PM ESTSexual OrientationHeterosexual or Pxqxqddn62/17/2022 6:11 PM ESTdocumented as of this encounter Plan of Treatment DateTypeDepartmentCare Team (Latest Contact Info)Jisczslosxv13/30/2025 1:20 PM EDTOffice Visit [facility] [address] [place] [address] Emilia To, ALARM SECURITY OR SURVEILLANCE MONITOR [address] [place] [address] NameTypePriorityAssociated DiagnosesOrder ScheduleXR chest 2 viewsImagingRoutine Shortness of breath Expected: 04/25/2025, Expires: 04/25/2026documented as of this encounter Visit Diagnoses Diagnosis Shortness of breath- Primary documented in this encounter Care Teams Team MemberRelationshipSpecialtyStart DateEnd Date John Perdomo DO [address] [place] [address] PCP - Wcbqbpg01/8/22documented as of this encounter
--- OUTSIDE RECORDS SUMMARY | 2025-04-25 14:18 | XMS_ITS | Clinical Summary ---
Author Organization [facility] Address [address] [place] [address] Care Team Providers Care Biomed Tech Name Role Phone John Perdomo DO Primary Care Provider [phone] Allergies Active AllergyReactionsCriticalityNoted IdwcPyrtuzxxRaqtnudmhvvuNhtlh42/08/2022 Erythromycin Base05/10/20229879Yrcgkwkmnudzt04/08/6968HbehhsnvjljXeanl81/08/2022 DkfhprbkruxnakKzkuVhj53/04/2024 Medications MedicationSigDispense QuantityRefillsLast FilledStart DateEnd DateStatus allopurinol (Zyloprim) 100 mg tablet TAKE 1 TABLET BY MOUTH ONCE DAILY FOR 90 DAYSActive aspirin 81 mg EC tablet Take 1 tablet every day by oral route.Active ergocalciferol (Vitamin D-2) 1.25 MG (49885 UT) capsule Take 1 capsule by mouth 1 (one) time per week.Active ferrous sulfate 325 (65 Fe) MG tablet TAKE 1 TABLET BY MOUTH EVERY OTHER DAY FOR 90 DAYSActive levothyroxine (Synthroid, Levoxyl) 50 mcg tablet Take 1 tablet by mouth in the morning.Active potassium chloride CR (Klor-Con M20) 20 mEq ER tablet Take 40 mEq by mouth in the morning.Active insulin glargine (Lantus) 100 unit/mL (3 mL) pen Inject under the skin.11/05/2019Active nitroglycerin (Nitrostat) 0.4 mg SL tablet Indications: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 25 tablet ctive midodrine (Proamatine) 5 mg tablet Indications:Orthostatic hypotensionTake 1 tablet (5 mg) by mouth if needed (as needed for orthostatic hypotension). 90 tablet 312/164001/5Active metOLazone (Zaroxolyn) 2.5 mg tablet Indications:Essential (primary) hypertensionTAKE 1 TABLET BY MOUTH IF NEEDED FOR SWELLING OR WEIGHT GAIN 90 tablet 1035Active Additional Information Patient taking differently: 2.5 mg oral As needed, Reported on 04/15/2025 isosorbide mononitrate ER (Imdur) 30 mg 24 hr tablet Indications:Coronary artery disease involving [place] coronary artery of [place] heart without angina pectorisTake 1 tablet (30 mg) by mouth once daily as directed. Do not crush or chew. 90 tablet 5Active amLODIPine (Norvasc) 10 mg tablet Indications:Essential (primary) hypertensionTAKE 1 TABLET BY MOUTH EVERY DAY 90 tablet 5Active doxazosin (Cardura) 4 mg tablet Indications:Primary hypertensionTAKE 1 AND 1/2 TABLETS BY MOUTH TWICE A DAY 270 tablet 5Active Additional Information Patient not taking.Reported on 04/15/2025 atorvastatin (Lipitor) 40 mg tablet Indications:Hyperlipidemia, unspecifiedTAKE 1 TABLET BY MOUTH EVERYDAY AT BEDTIME 90 tablet 5Active hydrALAZINE (Apresoline) 50 mg tablet Indications:Essential (primary) hypertensionTAKE 1 TABLET BY MOUTH TWO TIMES DAILY. 180 tablet 5Active bumetanide (Bumex) 2 mg tablet Indications:Acute on chronic diastolic congestive heart failure (CMS/HCC)Take 2 tablets (4 mg) by mouth two times daily. 360 tablet 310510/6Active Additional Information Patient taking differently: 2 mgoralDaily, Reported on 04/15/2025 folic acid (Folvite) 1 mg tablet Take 1 mg by mouth in the morning.Active metoprolol tartrate (Lopressor) 50 mg tablet Indications:Essential (primary) hypertensionTake 1.5 tablets (75 mg) by mouth in the morning and at bedtime.5Active bumetanide (Bumex) 2 mg tablet Indications:Heart failure, unspecified (CMS/HCC)TAKE 1 AND 1/2 TABLETS BY MOUTH TWICE A DAY 270 tablet 31141Discontinued(Dose adjustment) metoprolol tartrate (Lopressor) 50 mg tablet Indications:Essential (primary) hypertensionTake 1.5 tablets (75 mg) by mouth in the morning and at bedtime. 270 tablet Discontinued Active Problems ProblemNoted DateDiagnosed ZzioDzpqwxhcdohgbk25/30/0597Lpqelbnlrexup65/30/2024 Jicoimqkdfc98/30/2024Microscopic oxppxletu92/30/2024Secondary lripbfhphbgyirinhry78/30/2024Nontoxic multinodular ocpvjg8309/27/2023Orthostatic frotmzfpslo78/09/2024 Assessment & Plan (07/11/2023 12:15 PM EST): Reviewed pt's b/p sitting and standing. Sitting B/P remains elevated and significant hypotension with standing therefore will send script to midodrine 5 mg tid prn for orthostasis, continue all othermeds. Continue to monitor b/P and heart rate and call office if no improvement of symptoms. Staff to schedule pt for office visit soon to evaluate symptoms and response. Carmina Cruz COIL WINDER REPAIR Division of Cardiology, [facility]- [phone] Pager- [phone] Email- [email or web address] Corneal scar, right eye/4Dry eyes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 type1 diabetes mqmzlezh50/rimary open angle glaucoma (POAG) of both eyes, mild stage/enign essential hypertension 06/02/2022 Assessment & Plan (07/20/2022 10:35 AM EST): Hypertension is 137/62 Continue meds as prescribed. Bumex, doxazosin, hydralazine Rxwpulsr35/01/5076Vsfwfq21/01/2022hronic diastolic heart xqynton2905/11/2022 Overview (07/20/2022): Images from the original note were not included. 06/2022 Echo Assessment & Plan (02/24/2023 2:27 PM EDT): NYHC II Currently euvolemic without exacerbation Continue GDMT- Diuretic therapy- As per nephrology recommendations she takes Bumex 3 mg twice daily and metolazone2.5 mg as needed Monitor daily weights, I&O, [...] edema, dyspnea and weight gain noted. Calling signal wirer Dr garcia for recommendations - in light [...] and she voiced understanding of instructions. Coronary wzzkxnaywtjjywes28/19/2022 Assessment & Plan (02/24/2023 2:26 PM EDT): [...] stable, continue GDMT- ASA, lipitor and metoprolol Electronic Tester sent a note that he wants to add eyedrops- darzalamide/timolol to her regimen and to monitor for any side effects. Hypertensive qslcmwap45/19/2022 Assessment & Plan (02/24/2023 2:26 PM EDT): Hypertension is Well-controlled blood pressure 131/71 Continue all medications Follow-up with nephrology as scheduled Assessment & Plan (05/11/2022 3:19 PM EST): Currently stable- 136/59 Continue all medications Stage 4 chronic kidney gyfpqgn8607/21/2021 Assessment & Plan (05/11/2022 3:20 PM EST): We will discussed with Dr. Garcia regarding further recommendations regarding her diuresis Sent for labs today and chest x-ray Kidney ildcphs1007/31/2020Heart xqnnlt6008/13/2019Recurrent herpes rrwhzrn7708/13/2019 Type 2 diabetes mclucnaf44/11/2020 Encounters DateTypeDepartmentCare YrhmKepbienhjvm16/24/2025Orders Only [facility] [address] [place] [address] Michelle Dias MA Shortness of breath (Primary Dx)04/15/2025 2:20 PM EDTOffice Visit [facility] [address] [place] [address] Emilia To CNP Acute on chronic diastolic congestive heart failure (CMS/HCC) (Primary Dx); Essential (primary) hypertension; Coronary artery disease involving [place] coronary artery of [place] heart without angina pectoris; History of coronary artery bypass surgery; Stage 4 chronic kidney disease (CMS/HCC); Primary hypertension; Orthostatic uguotwqbtov93/09/2025Orders Only [facility] [address] [place] [address] Drea Robertson MD 04/10/2025Telephone [facility] [address] [place] [address] Julita [place] MA 04/07/2025 3:00 PM EDTOffice Visit [facility] [address] [place] [address] Bran Fish MD Acute on chronic diastolic congestive heart failure (CMS/HCC) (Primary Dx); Coronary artery disease involving [place] coronary artery of [place] heart without angina pectoris; Essential (primary) hypertension; History of coronary artery bypass surgery; Stage 4 chronic kidney disease (CMS/HCC)02/04/2025Refill [facility] [address] [place] [address] Bran Fish MD Essential (primary) hypertensionfrom Last 3 Months Immunizations ImmunizationAdministration DatesNext DueHep B, adult06/20/2000,03/07/2000, 12/01/1999 Family History Medical HistoryRelationNameCommentsHeart attackFatherHeart attackMotherHeart failureMotherRelationNameStatusCommentsFatherDeceasedMotherDeceased Social History Tobacco UseTypesPacks/DayYears UsedDateSmoking Tobacco: NeverSmokeless Tobacco: Never Tobacco Cessation:Counseling Given: Not Answered Alcohol UseStandard Drinks/WeekCommentsNot Currently0 (1 standard drink = 0.6 oz pure alcohol)ME Safety & EnvironmentAnswerDate RecordedFear of Current or Ex-PartnerNot on file08/24/2023Emotionally AbusedNot on file08/24/2023hysically AbusedNot on file08/24/2023Sexually AbusedNot on file4Physically or Sexually AbusedNot on file08/24/2023CommentsUnknownSex and Gender InformationValueDate RecordedSex Assigned at UjicyNuyrep08/17/2022 6:11 PM EST Legal SswOjuhnf90/30/2022 12:22 AM EDTGender RrsvfjanMwxjzh71/17/2022 6:11 PM ESTSexual OrientationHeterosexual or Cauhxmje47/17/2022 6:11 PM EST Last Filed Vital Signs Vital SignReadingTime TakenCommentsBlood Vhkhdtwe745/7004/15/2025 2:47 PM EDT Gxigc867104/15/2025 2:47 PM DXHAssaepsuids90.4 ??C (97.5 ??F)08/10/2020 10:10 AM ESTRespiratory Xvmg790208/10/2020 10:05 AM ESTOxygen Zbrnwvdtzc72%04/15/2025 2:47 PM EDTInhaled Oxygen Concentration--Ilhfcq51.2 kg (124 lb)04/15/2025 2:47 PM EDT Xkefng397.2 cm (4' 8 )04/15/2025 2:47 PM EDTBody Mass Index27.81 2:47 PM EDT Plan of Treatment DateTypeDepartmentCare Team (Latest Contact Info)Wcqhhcbcdkr27/30/2025 1:20 PM EDTOffice Visit [facility] [address] [place] [address] Emilia To, MONUMENT CARVER [address] [place] [address] Health MaintenanceDue DateLast DoneCommentsCT Fqupolbnbnna1951Colonoscopy 1951olorectal Cancer Yopjsbotq1951FIT-DNA1951FIT1950 FOBT1950Medicare Annual Wellness (AWV)04/23/19510776Pvgzcqrimbfjx1951 Diabetes: Retinopathy Saplmpvuu10/22/1961epression Zlmsutprm13/22/1963Diabetes: Urine Protein Gimmqidph45/22/1970Pneumococcal Vaccine: 50+ Years (1 of 2 - PCV) 1970Adult Xqqvyzi6604/23/19738666Nfajrnqhr35/22/1991Zoster Vaccines (1 of 2) 2001Fall Risk Nybgeussb40/22/2016Diabetes: Hemoglobin A1C10/08/2020 07/10/2020OVID-19 Vaccine ( - 2024- season)2025Influenza Vaccine (#1) 2025HIB VaccinesAged OutNo longer eligible based on patient's age to complete this topicHPV VaccinesAged OutNo longer eligible based on patient's age to complete this topicIPV VaccinesAged OutNo longer eligible based on patient's age to complete this topicMeningococcal B VaccineAged OutNo longer eligible based on patient's age to complete this topicMeningococcal VaccineAged OutNo longer eligible based on patient's age to complete this topicRotavirus Vaccines Aged OutNo longer eligible based on patient's age to complete this topic Procedures Procedure NamePriorityDate/TimeAssociated DiagnosisCommentsBASIC METABOLIC PANEL Mormrlm3404/10/2025 2:45 PM EDTHEMOGLOBIN G5SWmgrgpl43/08/2021 7:09 PM EST from Last 3 Months or Most Recently Relevant to Health Maintenance Results * Basic metabolic panel (04/10/2025 2:45 PM EDT)Specimen (Source)Anatomical Location / LateralityCollection Method / VolumeCollection TimeReceived Time BloodVenous blood specimen / Unknown Narrative Authorizing ProviderResult TypeResult StatusHistorical Provider NEDRA BLOOD ORDERABLESFinal Result * (ABNORMAL) Hemoglobin A1c (07/10/2020 7:09 PM EST)ComponentValueRef RangeTest MethodAnalysis TimePerformed AtPathologist SignatureHemoglobin A1C6.2(H)4.0 - 6.0 %LAB CONVERSIONSEstimated Average Yhqbisb704joet/LLAB CONVERSIONSSpecimen (Source)Anatomical Location / LateralityCollection Method / VolumeCollection TimeReceived Time07/10/2020 7:09 PM EST07/10/2020 7:26 PM EST Narrative LAB CONVERSIONS - 07/12/2020 11:33 AM EST No: Do not add to previous draw Authorizing ProviderResult TypeResult StatusAlexandria Sirleaf PALAB BLOOD ORDERABLESFinal ResultPerforming OrganizationAddressCity/State/ZIP CodePhone Number LAB CONVERSIONS from Last 3 Months or Most Recently Relevant to Health Maintenance Insurance MemberSubscriberPlan / Payer (Effective 2016-Present)Name:Claudia Polo Member ID:[id number] Relation to Subscriber:SelfName:Claudia Polo Subscriber ID:[id number] Payer ID:[id number] Group ID:Not on file Type:Medicare Address: [facility] [place] [id number] Care Teams Team MemberRelationshipSpecialtyStart DateEnd Date John Perdomo DO [address] [place] [address] PCP - Hngyjbv37/8/22
--- OUTSIDE RECORDS SUMMARY | 2025-04-25 14:19 | XMS_ITS | CCD ---
Author Organization [facility] Care Team Providers Care It Security Analyst Name Role Phone JOHN PERDOMO Referring Unavailable PERDOMO, JOHN Primary Care Unavailable MOUKARBEL, KARTHIK Resendiz Attending Unavailable MOUKARBEL, KARTHIK Resendiz Admitting Unavailable [...] , [place] Provider Primary Care Provi kortney MIRTA TERAN Attending Unavailable MIRTA TERAN Attending Unavailable Perdomo John FAIR Primary Care Provider Geneva Jenkins MD Attending Provider DEACON CHURCH Attending Unavailable KARTHIK FISH Attending Unavailable KARTHIK FISH Attending Unavailable John Perdomo DO Primary Care Provider [phone] Geneva Jenkins MD Attending Provider Allergies Allergy ClassificationReported Allergen(s)Allergy TypeDate of OnsetReaction(s) FacilityOpioid Agonists (1 source)HYDROmorphoneDrug Uoqzriz33-43-9487Cmgsygt ReactionMagruder Memorial HospitalPenicillins (antibiotic) (1 source)Penicillin G BenzathineDrug Gsgakxk08-71-0305bgqpgIupxnqvscMagruder Memorial Hospitalpironolactone (1 source)SpironolactoneDrug Leiipyy63-54-3099fwdgTynyeatwyJoint Township District [facility] (2 sources)Erythromycin; Translations: [ERYTHROMYCIN]Drug Ypbvpbo00-20-6504Tvl [facility] (2 sources)HYDROmorphoneDrug Xsotzur17-54-0662Hvi [facility] (2 sources)Penicillins; Translations: [PENICILLINS]Drug allergy (disorder) 06-79-2494Zia [facility] Rep[facility] (20 sources)ErythromycinDrug Llmkzjp53-16-3611iylgwjgkajn, Other, UnknownNOOK Healthcare (20 sources)HYDROmorphone; Translations: [HYDROMORPHONE]Drug Vjizybk40-63-4401 [facility] (20 sources)PenicillinDrug AllergyUnknoSt. Joseph Medical Center [employer] Other (20 sources)Penicillin G BenzathineDrug -76-3991fesvoExuejsohgMain Campus Medical Center (13 sources)Erythromycin; Translations: [ERYTHROMYCIN BASE]Drug Allergy 44-23-6762XkeegbmhcgoOtn [facility] (1 source)PenicillinDrug AllergyK[facility] (9 sources)Spironolactone; Translations: [SPIRONOLACTONE]Drug Naanvfe06-44-3064 [facility] (5 sources)Penicillin GDrug Zhdlqbn30-84-0416VyeiqKIYQ Healthcare (4 sources)PenicillinsDrug Snekxhf03-09-5017ShwrtIRIC [facility] (4 sources)SpironolactoneDrug Bzofmgi85-42-9119AihgDXIL Healthcare Medications Current Medications MedicationDrug Class(es)DatesSig (Normalized)Sig (Original)allopurinol 100 mg oral tablet (20 sources)Xanthine Oxidase InhibitorStart: 91-28-4477uism 1 tablet by mouth once dailyAllopurinol 100 mg tablet Active 100 MG PO Daily April 22, 2025 11:37am Hyperuricemia 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 inflammatory arthritis and tophaceous disease Complies with drug therapyStart: 03-24-2025 End: 15-72-3470ttcn 1 tablet by mouth once dailyAllopurinol 100 mg tablet Discontinued 0 .ROUTE .COMPLEX 90 March 24, 2025 12:12pm April 22, 2025 11:40am Hyperuricemia 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 inflammatory arthritis and tophaceous disease TAKE 1 TABLET BY MOUTH EVERY DAYStart: 09-03-2024 End: 28-54-4529kwcb 1 tablet by mouth once dailyAllopurinol 100 mg tablet Discontinued 100 MG PO Daily September 03, 2024 4:38pm March 24, 2025 12:13pm Hyperuricemia 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 inflammatory arthritis and tophaceous diseaseStart: 09-06-2023 End: 72-57-9670pcab 1 tablet by mouth once dailyAllopurinol 100 mg tablet Discontinued 0 .ROUTE .COMPLEX 90 July 29, 2024 7:27pm September 03, 2024 4:42pm Hyperuricemia 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 inflammatory arthritis and tophaceous disease TAKE 1 TABLET BY MOUTH EVERY DAYStart: 09-05-2023 End: 28-23-7269waui 1 tablet by mouth once dailyAllopurinol 100 mg tablet Discontinued 100 MG PO Daily 90 90 September 05, 2023 6:29pm September 06, 2023 5:52pm Hyperuricemia 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 inflammatory arthritis and tophaceous diseaseFreeTextSig: TAKE 1 TABLET BY MOUTH EVERY DAY; Note: Source Status: Taking; Refills: 1; Qty: 90 Tablet; Provider: Mary Grace Bean ( )aspirin 81 mg delayed release oral tablet (20 sources)Platelet Aggregation Inhibitor, Nonsteroidal Anti-inflammatory Drug Start: 09-25-2023 End: 77-21-0371zely 1 tablet by mouth once dailyAspirin 81 mg tablet,delayed release (DR/EC) Active 81 MG PO Daily September 03, 2024 4:39pm Complies with drug therapytake 1 tablet by mouth once dailyAspirin 81 81 MG 1 tablet Orally Once a day Activetake 1 tablet by mouth once dailyAspirin 81 81 MG 1 tablet Orally Once a day Activetake 1 tablet by mouth every other dayAspirin 81 81 MG 1 tablet Orally EVERY OTHER DAY ActiveBasaglar KwikPen 100 units/mL (20 sources)Basaglar KwikPen 100 units/mL 15 units SQ three times a day prn *please review for potential _update for e-prescription and drug interaction check* Activebimatoprost 0.1 mg/ml ophthalmic solution (3 sources)Prostaglandin Analogtake 1 drop(s) into the eye(s) once daily in the eveningLumigan 0.01 % 1 drop into affected eye in the evening Ophthalmic Once a day Activebumetanide 2 mg oral tablet (20 sources)Loop DiureticStart: 04-22-2025 End: 95-34-4165ongd 1 tablet by mouth once dailyBumetanide 2 mg tablet Active 2 MG PO Daily April 22, 2025 11:54am Complies with drug therapyStart: 09-25-2023 End: 14-46-2581ykyo 1 tablet by mouth twice dailyBumetanide 2 mg tablet Discontinued 3 MG PO Twice daily January 08, 2024 1:04pm April 22, 2025 11: 40amStart: 09-25-2023 End: 97-35-7543ypmh 3 mg by mouth twice dailyBumetanide Active 3 MG PO Twice daily January 08, 2024 1:04pmtake 1.5 tablets by mouth in the morningbumetanide (Bumex) 2 MG tablet Take 1.5 tablets by mouth in the morning and 1.5 tablets before bedtime. Activetake 1 tablet by mouth twice dailyBumetanide 2 MG 1 1/2 TABLETS Orally TWICE A DAY Activetake 0.5 tablet by mouth twice dailyBumetanide 2 MG 1/2 TABLET Orally TWICE A DAY Activeclopidogrel 75 mg oral tablet (3 sources)P2Y12 Platelet Inhibitortake 1 tablet by mouth every twenty-four hoursClopidogrel Bisulfate 75 MG 1 tablet Orally Once a day ActivecycloSPORINE 0.5 mg/ml ophthalmic suspension (20 sources)Calcineurin Inhibitor ImmunosuppressantcycloSPORINE (Restasis) 0.05 % ophthalmic emulsion 1 (one) time each day at the same time Activetake 1 drop(s) into the eye(s) once dailyRestasis 0.05 % 1 drop into affected eye Ophthalmic ONCE A DAY Activetake 1 drop(s) into the eye(s) once dailyRestasis 0.05 % 1 drop into affected eye Ophthalmic ONCE A DAY Activedexamethasone 0.7 mg drug implant (5 sources)CorticosteroiddexAMETHasone (Ozurdex) 0.7 MG ocular implant as directed Intravitreal Activedocusate sodium 100 mg oral capsule (5 sources)Docusate Sodium (DSS) 100 MG capsule every 12 (twelve) hours Active dorzolamide (6 sources)Carbonic Anhydrase Inhibitortake 1 drop(s) into the eye(s) three times dailyDorzolamide HCl 2 % 1 drop into affected eye Ophthalmic Three times a day Activetake 1 drop(s) into the eye(s) three times dailyDorzolamide HCl 2 % 1 drop into affected eye Ophthalmic Three times a day ActiveDorzolamide HCl Activedorzolamide 20 mg/ml / timolol 5 mg/ml ophthalmic solution (18 sources)Carbonic Anhydrase Inhibitor, beta-Adrenergic BlockerStart: 05-15-2024 End: 04-39-3947yyuz 1 drop(s) into the eye(s) in the morningdorzolamide-timolol (Cosopt) 2-0.5 % ophthalmic solution Indications: Primary open angle glaucoma (P OAG) of both eyes, mild stage ADMINISTER 1 DROP INTO BOTH EYES IN THE MORNING AND 1 DROP BEFORE BEDTIME. 30 mL 1 03/24/2025 03/24/2026 ActiveStart: 09-25-2023 dorzolamide-timolol (Cosopt) 2-0.5 % ophthalmic solution Twice daily 09/25/2023 ActiveStart: 68-75-6777rhsw 1 drop(s) into the eye(s) twice dailyDorzolamide- Timolol 22.3-6.8 mg/mL drops Active 1 DROPS OPHTHALMIC Twice daily September 25, 2023 12:00am FreeTextSi drop into affected eye Ophthalmic Twice a day; Note: Source Status: Taking; Provider: Mary Grace Bean ( ) Complies with drug therapyDorzolamide HCl-Timolol Mal 2-0.5 % 1 drop into affected eye Ophthalmic Twice a day Activeergocalciferol 1.25 mg oral capsule (20 sources)Provitamin D2 CompoundStart: 11-81-9288Oaqfhpaqclyvya (Vitamin D2) 1,250 mcg (50,000 unit) capsule Active 06121 UNIT PO .COMPLEX 7 July 29, 2024 7:32pm 50,000 units orally every other week; Complies with drug therapy Start: 09-25-2023 End: 80-58-5940bfde 1 capsule by mouth every weekErgocalciferol (Vitamin D2) 1,250 mcg (50,000 unit) capsule Discontinued 70378 UNIT PO EVERY 2 WEEKS September 25, 2023 12:00am July 29, 2024 7:33pm FreeTextSig: TAKE 1 CAPSULE BY MOUTH ONE TIME PER WEEK; Note: Source Status: Start; Refills: 2; Qty: 12 Capsule; Provider: Mary Grace Bean ( )take 1 capsule by mouth every weekVitamin D (Ergocalciferol) 1.25 MG (00535 UT) TAKE 1 CAPSULE BY MOUTH ONE TIME PER WEEK for 84 Activetake 1 capsule by mouth every other week Ergocalciferol 1.25 MG (43124 UT) 1 capsule Orally Q2 week for 90 days Active ferrous sulfate 325 mg oral tablet (20 sources)Start: 09-19-2024 End: 36-83-0828hukt 1 tablet by mouth every other dayFerrous Sulfate 325 mg (65 mg iron) tablet Active 0 .ROUTE .COMPLEX 45 March 24, 2025 12:12pm Anemia of renal disease Chronic kidney disease, unspecified Anemia in chronic kidney disease TAKEONE TABLET BY MOUTH EVERY OTHER DAY FOR 90 DAYS Complies with drug therapyStart: 09-03-2024 End: 41-75-3767Cxlzbwl Sulfate 325 mg (65 mg iron) tablet Discontinued 325 MG PO Every 48 hours September 03, 2024 4:40pm September 19, 2024 1:26pm Anemia of renal disease Chronic kidney disease, unspecified Anemia in chronic kidney disease Start: 09-06-2023 End: 90-41-6403jfsx 1 tablet by mouth every other dayFerrous Sulfate 325 mg (65 mg iron) tablet Discontinued 0 .ROUTE .COMPLEX 45 1 March 1249:48am September 03, 2024 4:42pm Anemia of renal disease Chronic kidney disease, unspecified Anemia inchronic kidney disease TAKE ONE TABLET BY MOUTH EVERY OTHER DAY FOR 90 DAYSStart: 83-41-1920nald 1 tablet by mouth every other dayFerrous Sulfate Active 0 .ROUTE .COMPLEX 45 September 06, 2023 4:49pm TAKE 1 TABLET BY MOUTH EVERY OTHER DAYStart: 09-05-2023 End: 65-08-3377lofm 1 tablet by mouth every other dayFerrous Sulfate 325 mg (65 mg iron) tablet Discontinued 325 MG PO Every 48 hours 45 90 1 August 6:32pm September 06, 2023 4:49pm Anemia of renal disease Chronic kidney disease, unspecified Anemia in chronic kidney disease FreeTextSig: TAKE 1 TABLET BY MOUTH EVERY OTHER DAY; Note: Source Status: Taking; Refills: 1; Qty: 45 Tablet; Provider: Mary Grace Bean ( )take 1 tablet by mouth every other day Ferrous Sulfate 325 (65 Fe) MG TAKE 1 TABLET BY MOUTH EVERY OTHER DAY for 90 Activetake 1 tablet by mouth every other dayFerrous Sulfate 325 (65 Fe) MG TAKE 1 TABLET BY MOUTH EVERY OTHER DAY for 90 ActiveFerrous Sulfate 325 (65 Fe) MG TAKE 1 TABLET BY MOUTH EVERY OTHER DAY FOR 90 DAYS for 90 Activefluocinolone acetonide 0.19 mg drug implant (5 sources)Corticosteroidfluocinolone (Iluvien) 0.19 MG implant as directed Intravitreal Activefolic acid 1 mg oral tablet (1 source)Start: 46-66-4438oepr 1 tablet by mouth once dailyFolic Acid 1 mg tablet Active 1 MG PO Daily April 22, 2025 12:00am Complies with drug therapyhydrALAZINE hydrochloride 25 mg oral tablet (20 sources)Arteriolar VasodilatorStart: 80-64-5146rmsp 2 tablets by mouth twice dailyHydralazine 25 mg tablet Active 50 MG PO Twice daily April 22, 2025 12:02pm Complies with drug therapyStart: 04-22-2025 End: 71-54-6148loiz 1 tablet by mouth twice dailyHydralazine 25 mg tablet Discontinued 25 MG PO Twice daily April 22, 2025 11:38am April 12:02pmStart: 09-25-2023 End: 55-56-3358kmdx 1 tablet by mouth three times dailyHydralazine 25 mg tablet Discontinued 25 MG PO Three times daily January 08, 2024 1:09pm April 22, 2025 11:40amStart: 51-50-8786gtiv 1 tablet by mouth three times dailyhydrALAZINE (Apresoline) 50 MG tablet TAKE 1 TABLET BY MOUTH THREE TIMES A DAY FOR 90 DAYS 08/11/2022 ActiveStart: 78-03-3179kshs 1 tablet by mouth every twelve hours hydrALAZINE HCl 25 MG 1 tablet with food Orally bid for 90 day(s) Aug, Activetake 1 tablet by mouth every eight hourshydrALAZINE HCl 25 MG 1 tablet with food Orally Three times a day for 90 day(s) Active3 ml insulin glargine 100 unt/ml pen injector (12 sources)Insulin AnalogStart: 27-37-4450mnzstl 10 [IU] by subcutaneous injection once as neededInsulin Glargine (Basaglar Kwikpen U-100 Insulin) 100 unit/mL (3 mL) insulin pen Active 10 UNIT SUBCUT Once as needed April 22, 2025 11:38am Complies with drug therapyStart: 09-25-2023 End: 82-67-5934Gzpmuul Glargine (Basaglar Kwikpen U-100 Insulin) 100 unit/mL (3 mL) insulin pen Discontinued 15 UNIT SUBCUT Three times daily as needed September 03, 2024 4:41pm April 22, 2025 11:40amIron (3 sources)Iron 325 (65 Fe) MG TAKE 1 TABLET BY MOUTH EVERY OTHER DAY Orally EVERY OTHER DAY for 90 days Activetake 1 tablet by mouth every other dayIron 325 (65 Fe) MG TAKE 1 TABLET BY MOUTH EVERY OTHER DAY for 90 Yvrdsl12 hr isosorbide mononitrate 30 mg extended release oral tablet (5 sources)Nitrate VasodilatorStart: 89-49-5591podc 1 tablet by mouth once daily in the morningisosorbide mononitrate ER (Imdur) 30 MG 24 hr tablet TAKE 1 TABLET BY MOUTH EVERY MORNING *DO NOT CRUSH OR CHEW* 08/17/2023 Activeisosorbide dinitrate 30 mg oral tablet (16 sources)Nitrate VasodilatorStart: 81-68-2569zeux 1 tablet by mouth once dailyIsosorbide Dinitrate 30 mg tablet Active 30 MG PO Daily September 25, 2023 12:00am FreeTextSi tablet Orally ONCE A DAY; Note: Source Status: Taking; Provider: Mary Grace Bean ( ) Complies with drug therapytake 1 tablet by mouth every twenty-four hoursIsosorbide Dinitrate 30 MG 1 tablet Orally ONCE A DAY Activetake 1 tablet by mouth every twenty-four hoursIsosorbide Dinitrate 40 MG 1 tablet Orally ONCE A DAY Activelatanoprost 0.05 mg/ml ophthalmic solution (17 sources)Prostaglandin Analoglatanoprost (Xalatan) 0.005 % ophthalmic solution 1 (one) time each day at the same time Activetake 1 drop(s) into the eye(s) once daily in the eveningLatanoprost 0.005 % 1 drop into affected eye in the evening Ophthalmic Once a day Activetake 1 drop(s) into the eye(s) once daily in the eveningLatanoprost 0.005 % 1 drop into affected eye in the evening Ophthalmic Once a day Activelevothyroxine sodium 0.075 mg oral tablet (20 sources)l-ThyroxineStart: 45-15-7298lbfx 1 tablet by mouth once daily Levothyroxine 75 mcg tablet Active 75 MCG PO Daily January 29, 2025 12:00am Complies with drug therapyStart: 09-25-2023 End: 55-55-8084vghr 1 tablet by mouth once dailyLevothyroxine 50 mcg tablet Discontinued 50 MCG PO Daily September 03, 2024 4:42pm January 29, 2025 11:40amtake 1 tablet by mouth once daily in the morningLevothyroxine Sodium 50 MCG 1 tablet in the morning on an empty stomach Orally Once a day Activetake 1 tablet by mouth once daily in the morningLevothyroxine Sodium 25 MCG 1 tablet in the morning on an empty stomach Orally Once a day Activeliothyronine sodium 0.005 mg oral tablet (5 sources)l-TriiodothyronineStart: 80-34-5064lkbe 2 tablets by mouth once daily liothyronine (Cytomel) 5 MCG tablet TAKE 2 TABLETS BY MOUTH ONCE A DAY 08/11/2023 ActivemetOLazone 2.5 mg oral tablet (20 sources)Thiazide-like DiureticStart: 58-21-7913vtvi 1 tablet by mouth two times weekly as neededMetolazone 2.5 mg tablet Active 2.5 MG PO .COMPLEX as needed April 22, 2025 11:38am 2.5 mg orally twice a week PRN; Complies with drug therapyStart: 09-25-2023 End: 36-55-4903Jccadcidor 2.5 mg tablet Discontinued 2.5 MG PO Every 48 hours as needed September 25, 2023 12:00am April 22, 2025 11:40am FreeTextSi tablet Orally MONDAY, MONDAY, MONDAY NEEDED; Note: Source Status: Taking; Provider: Mary Grace Bean ( )take 1 tablet by mouth two times weekly metOLazone (Zaroxolyn) 2.5 MG tablet TAKE 1 TABLET BY MOUTH TWICE WEEKLY Active metOLazone 2.5 MG 1 tablet Orally MONDAY, MONDAY, MONDAY NEEDED Active nitroglycerin 0.4 mg sublingual tablet (5 sources)Nitrate Vasodilatornitroglycerin (Nitrostat) 0.[address] 1 TABLET UNDER TONGUE EVERY 5 MINUTES IF NEEDED FOR CHEST PAIN Activepotassium chloride 20 meq extended release oral tablet (20 sources)Start: 23-69-0122adcy 1 tablet by mouth oncePotassium Chloride 20 mEq tablet extended release Active 20 MEQ PO Once April 22, 2025 11:36am C omplies with drug therapyStart: 09-25-2023 End: 78-58-4766ohei 40 mEq by mouth three times dailyPotassium Chloride Active 40 MEQ PO Three times daily 540 90 November 16, 2023 1:50pmStart: 04-10-2023 End: 80-87-0124nkqn 2 tablets by mouth three times dailyPotassium Chloride 20 mEq tablet extended release Discontinued MEQ PO September 25, 2023 12:00am October 312023 1:52pm FreeTextSi Tablet Orally tid; Note: Source Status: Taking; Refills: 0; Qty: 540 Tablet; Provider: Mary Grace Bean ( )Klor-Con M20 20 MEQ TAKE 2 TABLETS BY MOUTH IN THE MORNING, 2 TABLETS AT NOON, AND 1 TABLET IN THE EVENING for 90 Activetake 2 tablets by mouth every twelve hours Potassium Chloride ER 20 MEQ 2 Tablet Orally bid for 90 days Active Completed/Discontinued Medications MedicationDrug Class(es)DatesSig (Normalized)Sig (Original)amLODIPine 10 mg oral tablet (20 sources)Dihydropyridine Calcium Channel BlockerStart: 10-28-2020 End: 13-04-3569cnzc 1 tablet by mouth once dailyAmlodipine 10 mg tablet Discontinued 1 TAB PO Daily September 25, 2023 12:00am September 03, 2024 4:42pm FreeTextSi tablet Orally Once a day; Note: Source Status: Taking; Provider: Mary Grace Bean ( )atorvastatin 40 mg oral tablet (20 sources)HMG-CoA Reductase InhibitorStart: 12-22-2022 End: 55-91-9526evdj 1 tablet by mouth once dailyAtorvastatin 40 mg tablet Discontinued 1 TAB PO Daily September 25, 2023 12:00am September 03, 2024 4:42pm FreeTextSi tablet Orally Once a day; Note: Source Status: Taking; Provider: Mary Grace Bean ( )doxazosin 4 mg oral tablet (20 sources)alpha-Adrenergic BlockerStart: 01-08-2024 End: 88-68-1585gjmg 6 mg by mouth twice dailyDoxazosin 4 mg tablet Discontinued 6 MG PO Twice daily January 08, 2024 1:05pm April 22, 2025 11:39amStart: 09-25-2023 End: 42-65-4952pbga 6 mg by mouth twice dailyDoxazosin Active 6 MG PO Twice daily January 08, 2024 1:05pmStart: 10-24-2022 End: 43-11-1658qwmg 1 tablet by mouth twice dailyDoxazosin 4 mg tablet Discontinued MG PO September 25, 2023 12:00am January 08, 2024 1:08pm FreeTextSi 1/2 TABLETS Orally TWICE A DAY; Note: Source Status: Taking; Provider: Mary Grace Bean ( )metoprolol tartrate 50 mg oral tablet (20 sources)beta-Adrenergic BlockerStart: 01-08-2024 End: 89-46-3548Qfkudgrcno Tartrate 50 mg tablet Discontinued 75 MG PO Twice daily January 08, 2024 1:07pm April 22, 2025 11:40amStart: 09-25-2023 End: 57-11-5481Qhzsjruflx Tartrate 50 mg tablet Discontinued MG PO September 25, 2023 12:00am January 08, 2024 1:08pm FreeTextSi 1/2 tablet with food Orally Twice a day; Note: Source Status: Taking; Provider: Mary Grace Bean ( )Start: 09-25-2023 End: 01-27-7491oabs 75 mg by mouth twice dailyMetoprolol Tartrate Active 75 MG PO Twice daily January 08, 2024 1:07pmStart: 74-29-1236qrfg 1.5 tablets by mouth in the morningmetoprolol tartrate (Lopressor) 50 MG tablet Take 1.5 tablets by mouth in the morning and 1.5 tablets before bedtime. 09/13/2022 ActiveMetoprolol Tartrate 50 MG 1 1/2 tablet with food Orally Twice a day Activemidodrine hydrochloride 5 mg oral tablet (10 sources)alpha-Adrenergic AgonistStart: 01-08-2024 End: 51-26-3756zbdf 1 tablet by mouth three times daily as neededMidodrine 5 mg tablet Discontinued 5 MG PO Three times daily as needed January 08, 2024 12:00am April 22, 2025 11:39am Problems Active Problems Problem ClassificationProblemDateDocumented DateEpisodic/ChronicAcute and unspecified renal failure (2 sources)Acute renal failure syndrome; Translations: [Acute kidney failure, unspecified]42-99-4496UubhdwmlWhbyzph kidney disease (20 sources)Chronic kidney disease stage 4; Translations: [Chronic kidney disease, stage 4 (severe)]Onset: 05-18-2021 Resolved: 64-03-1753LaefuxmGolijxnyfl heart failure; nonhypertensive (13 sources)Chronic diastolic (congestive) heart failure; Translations: [Acute combined systolic (congestive) and diastolic (congestive) heart failure]Onset: 07-64-8742ZoyrfuzZusyxshy atherosclerosis and other heart disease (3 sources)Atherosclerotic heart disease of [place] coronary artery without angina pectoris; Translations: [ASHD [place] W/O ANGINA PECTORIS]Onset: 19-75-7151LpznhwjDsrmpegm atherosclerosis and other heart disease (2 sources)Presence of aortocoronary bypass graft; Translations: [Presence of aortocoronary bypass graft]Onset: 95-36-2671UcfcuqmrOdfjaymzbn and other anemia (20 sources)Anemia of renal disease; Translations: [Anemia in chronic kidney disease]11-22-7878HzwefwtBtragskqzb and other anemia (2 sources)Anemia in chronic kidney diseaseChronicDiabetes mellitus with complications (20 sources)Disorder of kidney due to diabetes mellitus; Translations: [Type 2 diabetes mellitus with diabetic chronic kidney disease]Onset: 05-18-2021 Resolved: 30-76-4847PesragrNxtfdpief of lipid metabolism (12 sources)Hyperlipidemia; Translations: [Hyperlipidemia, unspecified] 39-37-1372UgauuauQnylzxjes hypertension (7 sources)Essential (primary) hypertension; Translations: [ESSENTIAL PRIMARY HYPERTENSION]Onset: 45-12-6473KiorxasRhdaw and electrolyte disorders (20 sources)Hypokalemia; Translations: [Hypokalemia]Onset: 05-18-2021 Resolved: 56-53-0658ZlrhihzxFccifcrlqnrvg symptoms and ill-defined conditions (20 sources)Other microscopic hematuria; Translations: [Microscopic hematuria] Onset: 05-18-2021 Resolved: 69-12-0920MvwnuvniCqompyao (8 sources)Primary open angle glaucoma; Translations: [Primary open-angle glaucoma, bilateral, mild stage]Onset: 350509-56-6742UaxigzxDvcve valve disorders (1 source)Rheumatic disorders of both mitral and tricuspid valves; Translations: [RHEUMATIC D/O MITRAL TRICUSPID VALV]Onset: 45-84-0038SzzzplwUuzhnqbsepha with complications and secondary hypertension (20 sources)Chronic kidney disease due to hypertension; Translations: [Hypertensive chronic kidney disease withstage 1 through stage 4 chronic kidney disease, or unspecified chronic kidney disease]Onset: 05-18-2021 Resolved: 31-66-6294LxkrwbiBnnjbnzqqqd deficiencies (6 sources)Iron deficiency; Translations: [IRON DEFICIENCY]Onset: 05-18-2021 Resolved: 03-35-4226EbtqmcwsXpbcm connective tissue disease (20 sources)Full thickness rotator cuff tear; Translations: [Complete rotator cuff tear or rupture of left shoulder, not specified as traumatic]EpisodicOther diseases of kidney and ureters (20 sources)Secondary hyperparathyroidism; Translations: [Secondary hyperparathyroidism of renal origin]08-51-0476DtjacgfLpsax diseases of kidney and ureters (11 sources)Secondary hyperparathyroidism of renal origin; Translations: [Secondary hyperparathyroidism (of renal origin)]Onset: 05-18-2021 Resolved: 57-90-3716KodiuagTkvhz non-traumatic joint disorders (20 sources)Arthralgia of the lower leg; Translations: [Right knee pain]Episodic Other nutritional; endocrine; and metabolic disorders (12 sources)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 inflammatory arthritis and tophaceous disease; Translations: [Other abnormal blood chemistry]Onset: 05-18-2021 Resolved: 58-84-0428KeyvvrobOomrb nutritional; endocrine; and metabolic disorders (9 sources)Hyperuricemia; Translations: [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 inflammatory arthritis and tophaceous disease]34-76-1424XegislshXmwltmc disorders (20 sources)Non-toxic multinodular goiter; Translations: [Nontoxic multinodular goiter]Onset: 17-61-4105YagpgswJxkpfwrpmnak (3 sources)CONTACT W/AND (SUSP) EXPOS COVID-19; Translations: [CONTACT W/AND (SUSP) EXPOS COVID-19]Onset: 12-10-2021 Past or Other Problems Problem ClassificationProblemDateDocumented DateEpisodic/ChronicOther bone disease and musculoskeletal deformities (1 source)Other specified disorders of bone density and structure, right forearm; Translations: [OTH D/O BONEDEN STRUCT RT FORARM]Onset: 06-04-2022 EpisodicOther eye disorders (7 sources)Scar of cornea of right eye; Translations: [Unspecified corneal scar and opacity]Onset: 846657-23-3041LdtqwgreLmkyo eye disorders (7 sources)Dry eyes; Translations: [Dry eye syndrome of bilateral lacrimal glands]Onset: [id number] lower respiratory disease (5 sources)Shortness of breath; Translations: [SHORTNESS OF BREATH]Onset: 26-04-4822ZrdaazvcNodlk lower respiratory disease (5 sources)Other forms of dyspnea; Translations: [OTHER FORMS OF DYSPNEA]Onset: 63-82-9401ArxsnlssXxntj non-traumatic joint disorders (4 sources)Pain in right elbow; Translations: [PAIN IN RIGHT ELBOW]Onset: 63-64-2592PvkvejkgFghoibys codes; unclassified (1 source)Localized edema; Translations: [LOCALIZED EDEMA]Onset: 06-18-2022 EpisodicUnclassified (20 sources)Sprain of right knee; Translations: [Right knee sprain]Unclassified (1 source)CONTACT W/AND (SUSP) EXPOS COVID-19; Translations: [CONTACT W/AND (SUSP) EXPOS COVID-19]Onset: 12-07-2021 Results Test NameValueInterpretationReference RangeFacilityErythrocyte distribution width Auto (RBC) [Ratio]Ordered By: Geneva Jenkins on 99-53-5279Avlzciszkxf distribution width (RBC) [Ratio]14.6 %11.0-15.0[facility] Glomerular filtration rate (GFR) estimation in non- AmericanOrdered By: Geneva Jenkins on 08-18-0287LVI/1.73 sq M.predicted among non-blacks MDRD (S/P/Bld) [Vol rate/Area]18 mL/min/{1.73_m2}Low>=60 mL/min/1.73m [address] [place], [place] [address]Hematocrit Auto (Bld) [Volume fraction]Ordered By: Geneva Jenkins on 12-34-7549Fxvtsqhnse (Bld) [Volume fraction]31.7 %Low36.0-48.0[facility] HospitalHemoglobin [Mass/volume] in BloodOrdered By: Geneva Jenkins on 42-48-2082Pkqfbkyirb (Bld) [Mass/Vol]10.4 g/dLLow12.0-16.0[facility] HospitalIron binding capacity [Mass/volume] in Serum or PlasmaOrdered By: Geneva Jenkins on 65-29-5681Mewi binding capacity [Mass/Vol]247.0 ug/dLLow 250.0-450.0[facility] HospitalIron saturation [Mass Fraction] in Serum or PlasmaOrdered By: Geneva Jenkins on 74-43-4987Mnoc saturation [Mass fraction]21.9 %[facility] HospitalLaboratory - Chemistry and Chemistry - challengeOrdered By: Geneva Jenkins on 05-57-6595Wixfmdv [Mass/Vol]3.7 g/dL3.4-5.0[facility] HospitalCalcium [Mass/Vol]9.1 mg/dL8.5-10.1 [facility] HospitalChloride [Moles/Vol]102 mmol/N47-870KuksmqeggMagruder Memorial HospitalCO2 [Moles/Vol]23.4 mmol/L21.0-32.0[facility] HospitalCreatinine [Mass/Vol]2.63 mg/dLHigh0.55-1.02[facility] HospitalFerritin [Mass/Vol]220.0 ng/mL8.0-252.0[facility] HospitalGFR/1.73 sq M.predicted MDRD (S/P/Bld) [Vol rate/Area]22 mL/min/{1.73_m2} Low>=60 mL/min/1.73m [address]FMercy Health [address] Elizabeth Board[facility] HospitalGlucose [Mass/Vol]182 mg/dUUmtr75-298YigyhrflcMagruder Memorial HospitalIron [Mass/Vol]54.0 ug/dL 50.0-170.0[facility] HospitalMagnesium [Mass/Vol]2.4 mg/dL1.8-2.4 [facility] HospitalPotassium [Moles/Vol]3.6 mmol/L3.5-5.1FMercy Health St. Elizabeth [facility] Hospitalodium [Moles/Vol]134 mmol/OEvi864-398CwfqpvoffMagruder Memorial HospitalUrate [Mass/Vol]5.0 mg/dL2.6-6.0[facility] Urea nitrogen [Mass/Vol]56.0 mg/dLHigh7.0-18.0[facility] Urea nitrogen/Creatinine [Mass ratio]21.3 mg/mgMag[facility] Hospital Bilirubin Ql (U)NegativeNEGATIVEMagruder Memorial HospitalGlucose (U) [Mass/Vol]NegativeNEGATIVEMagruder Memorial HospitalKetones Ql (U) NegativeNEGATIVEMagruder Memorial HospitalpH (U)6.0 [pH]5.0-9.0[facility] Hospitalpecific gravity (U) [Rel density]1.0201.005-1.025 [facility] HospitalUrobilinogen Qn (U)0.2 {Kelly'U}/dL0.2-1.0 [facility] HospitalLaboratory - Specimen informationOrdered By: Geneva Jenkins on 44-73-3502Jilapstete (U)CLEARCLEARFMercy Health St. Elizabeth Boardman HospitalColor (U)LT. YELLOWYELLOWMagruder Memorial HospitalLaboratory - UrinalysisOrdered By: Geneva Jenkins on 50-99-2006Fslhpvqcq esterase Test strip Ql (U)SMALLAbnormalNEGMetroHealth Main Campus Medical CenterMucus Ql (Urine sed) NONE SEENNONE SEENMagruder Memorial HospitalNitrite Ql (U)Negative NEGATIVEMagruder Memorial HospitalProtein (U) [Mass/Vol]317.2 mg/dLHigh <=11.9[facility] HospitalProtein Ql (U)>=300 mg/dLAbnormal NEG/TRACEMagruder Memorial HospitalLeukocytes [#/volume] corrected for nucleated erythrocytes in Blood by Automated counOrdered By: Geneva Jenkins on 46-75-0309NCH corrected for nucl RBC Auto (Bld) [#/Vol]11.0 10 3/uL4.0-11.0 [facility] HospitalMC Auto (RBC) [Entitic mass]Ordered By: Geneva Jenkins on 49-78-6845XCD (RBC) [Entitic mass]29.5 pg26.7-34.0[facility] HospitalMCHC Auto (RBC) [Mass/Vol]Ordered By: Geneva Jenkins on 04-18-2025 MCHC (RBC) [Mass/Vol]32.8 g/dL29.9-35.2FMercy Health St. Elizabeth Boardman HospitalMCV Auto (RBC) [Entitic vol]Ordered By: Geneva Jenkins on 98-99-3912CMI (RBC) [Entitic vol] 89.8 fL81.0-99.0[facility] HospitalNo Panel InformationOrdered By: Geneva Jenkins on 655474-Nmamfbj Vitamin D Total58.2 ng/mLMagruder Memorial HospitalComment on above:<20 ng/mL Vit D opwpqentw31-<30 ng/mL Vit D uzhhyfytwrlm95-255 ng/mL Vit D sufficient>100 ng/mL Potential Toxicity Parathyroid Hormone (Intact)62 pg/vH31-40OgchymkcqMag[facility] Hospital Comment on above:Performed at: - [facility] [address] [id number] Director: Curry Rizzo PhD, Phone: [phone] Level 4.6 mg/dL2.6-4.7FMercy Health St. Elizabeth Boardman HospitalUrine BacteriaMODERATE #/HPF AbnormalNONE SEENMagruder Memorial HospitalUrine Occult BloodSMALL AbnormalNEGATIVEMagruder Memorial HospitalUrine Other CastsNONE SEEN #/LPFNONE [facility] HospitalUrine Other CrystalsNone Seen #/HPFNone [facility] HospitalUrine Random Bdjsbwjslp84.88 mg/dL20.00-300.00[facility] HospitalUrine RBC5-10 #/HPFAbnormal0-2 [facility] HospitalUrine Squamous Epithelial CellsFEW #/LPF AbnormalNONE/RAREMagruder Memorial HospitalUrine WBC5-10 #/HPFAbnormal NONE [facility] HospitalPlatelet mean volume Auto (Bld) [Entitic vol]Ordered By: Geneva Jenkins on 74-58-0881Gkcktzuz mean volume (Bld) [Entitic vol]11.1 fL9.5-13.5FMercy Health St. Elizabeth Boardman HospitalPlatelets Auto (Bld) [#/Vol]Ordered By: Geneva Jenkins on 29-97-3199Rptfrcpad (Bld) [#/Vol]191 10 3/kD327-819MbpqhqluyMagruder Memorial HospitalRBC Auto (Bld) [#/Vol]Ordered By: Geneva Jenkins on 20-07-6811UEZ (Bld) [#/Vol]3.53 10 6/uLLow4.20-5.40[facility]utheran Hospitalerum or plasma anion gap determinationOrdered By: Geneva Jenkins on 26-73-2638Sdguu gap [Moles/Vol]12.2 mmol/LFMercy Health St[address] Elizabeth Boardman HospitalUrine protein/creatinine ratioOrdered By: Geneva Jenkins on 04-18-2025 Protein/Creatinine (U) [Ratio]4.07[facility]37on *Will have her go back up to 75mg BID for HTN management. *Increase bumex to 2mg BID. *Have weekly labs to follow-up on kidney functionNormalUniversity of [facility] Fort WorthOffice Visiton [id number]-up [id number] Claudia Estrella 1950 Date Provider Department Center 04/15/2025 DEACON CARRASCO ADY Calero Family History Problem Relation Age of Onset Heart attack Mother Heart failure Mother Heart attack Father Family Status - Relation Status Age at Mother Father Level of Service:23434 [place] OFFICE/OUTPATIENT ESTABLISHED MOD MDM 30 MIN Reason for Visit and Comments: Follow-up [301488] - Patient is here today for a follow up [facility] admission. Patient states she feels better but not great. Patient states the Hospitalist changed her medications and cut her bumex in half, changed her potassium to 1 a day. Coronary Artery Disease [187] Hypertension [754813] Hyperlipidemia [182] Congestive Heart Failure [127] Heart Murmur [124] stage 4 kidney disease [Other] Shortness of Breath [908536] - MCALLISTER.NormalUnSycamore Medical Center Orders Onlyon 20-43-8450Evitvc [id number] Claudia Estrella 1950 F Date Provider Department Center 04/10/2025 [id number], HISTORICAL ADY Calero Family History Problem Relation Age of Onset Heart attack Mother Heart failure Mother Heart attack Father Family Status - Relation Status Age at Mother Father DeceasedNormalUniversGrand Lake Joint Township District Memorial HospitalOffice Visiton [phone]-up [id number] Claudia Estrella 1950 F Date Provider Department Center 04/07/2025 KARTHIK MACKAY BH [facility] Family History Problem Relation Age of Onset Heart attack Mother Heart failure Mother Heart attack Father Family Status - Relation Status Age at Mother Father Level of Service:59139 [place] OFFICE/OUTPATIENT ESTABLISHED MOD MDM 30 [facility] HospitalErythrocyte distribution width Auto (RBC) [Ratio]Ordered By: Geneva Jenkins on 16-74-2809Rbljqdnwdkb distribution width (RBC) [Ratio]13.7 %11.0-15.0[facility] HospitalEstimated glomerular filtration rate (GFR) non- AmericanOrdered By: Geneva Jenkins on 01-20-2025 GFR/1.73 sq M.predicted among non-blacks MDRD (S/P/Bld) [Vol rate/Area]20 mL/min/{1.73_m2}Low>=60 mL/min/1.73m 2FM[address] [facility] Hospital Hematocrit Auto (Bld) [Volume fraction]Ordered By: Geneva Jenkins on 01-20-2025 Hematocrit (Bld) [Volume fraction]32.6 %Low36.0-48.0[facility] HospitalHemoglobin [Mass/volume] in BloodOrdered By: Geneva Jenkins on 01-20-2025 Hemoglobin (Bld) [Mass/Vol]11.1 g/dLLow12.0-16.0[facility] HospitalIron binding capacity [Mass/volume] in Serum or PlasmaOrdered By: Geneva Jenkins on 54-63-4703Ttct binding capacity [Mass/Vol]279.0 ug/dL250.0-450.0 [facility] HospitalIron saturation [Mass Fraction] in Serum or PlasmaOrdered By: Geneva Jenkins on 62-72-5215Qqqe saturation [Mass fraction]17.9 % [facility] HospitalLaboratory - Chemistry and Chemistry - challengeOrdered By: Geneva Jenkins on 31-53-8520Rheaukx [Mass/Vol]3.2 g/dLLow 3.4-5.0[facility] HospitalCalcium [Mass/Vol]9.2 mg/dL8.5-10.1 [facility] HospitalChloride [Moles/Vol]105 mmol/U38-606RtekaavuhMagruder Memorial HospitalCO2 [Moles/Vol]25.4 mmol/L21.0-32.0[facility] HospitalCreatinine [Mass/Vol]2.33 mg/dLHigh0.55-1.02[facility] HospitalGFR/1.73 sq M.predicted MDRD (S/P/Bld) [Vol rate/Area]25 mL/min/{1.73_m2}Low>=60 mL/min/1.73m [address]FM[address] Elizabeth Board[facility] HospitalGlucose [Mass/Vol]158 mg/fHRwuj06-227SwayosgibMagruder Memorial HospitalIron [Mass/Vol] 50.0 ug/dL50.0-170.0[facility] HospitalMagnesium [Mass/Vol]2.1 mg/dL1.8-2.4FMercy Health St. Elizabeth Board[facility] HospitalPotassium [Moles/Vol]4.2 mmol/L 3.5-5.1FMercy Health St. Elizabeth [facility]stown Hospitalodium [Moles/Vol]142 mmol/S644-278 [facility] HospitalUrate [Mass/Vol]5.4 mg/dL2.6-6.0[facility] HospitalUrea nitrogen [Mass/Vol]50.0 mg/dLHigh7.0-18.0[facility] HospitalUrea nitrogen/Creatinine [Mass ratio]21.5 mg/mgMagruder Memorial HospitalBilirubin Ql (U)NegativeNEGATIVEMagruder Memorial HospitalGlucose (U) [Mass/Vol]NegativeNEGATIVEMagruder Memorial HospitalKetones Ql (U)NegativeNEGATIVEMagruder Memorial HospitalpH (U)6.0 [pH]5.0-9.0[facility] Hospitalpecific gravity (U) [Rel density] 1.0201.005-1.025[facility] HospitalUrobilinogen Qn (U)0.2 {Kelly'U}/dL0.2-1.0[facility] HospitalLaboratory - Specimen informationOrdered By: Geneva Jenkins on 80-22-9927Nxsoksmnda (U)CLEARCLEAR [facility] HospitalColor (U)LT. YELLOWYELLOWMagruder Memorial HospitalLaboratory - UrinalysisOrdered By: Geneva Jenkins on 01-20-2025 Leukocyte esterase Test strip Ql (U)TRACEAbnormalNEGATIVEMagruder Memorial HospitalMucus Ql (Urine sed)TRACEAbnormalNONE SEENMagruder Memorial HospitalNitrite Ql (U)NegativeNEGATIVEMag[facility] Hospital Protein (U) [Mass/Vol]167.6 mg/dLHigh<=11.9[facility] Protein Ql (U)>=300 mg/dLAbnormalNEG/TRACEMag[facility] Hospital Leukocytes [#/volume] corrected for nucleated erythrocytes in Blood by Automated counOrdered By: Geneva Jenkins on 11-41-2082LLR corrected for nucl RBC Auto (Bld) [#/Vol]9.0 10 3/uL4.0-11.0[facility] Auto (RBC) [Entitic mass]Ordered By: Geneva Jenkins on 96-43-9815RJU (RBC) [Entitic mass]29.8 pg26.7-34.0[facility] HospitalHC Auto (RBC) [Mass/Vol]Ordered By: Geneva Jenkins on 60-91-4319TMDP (RBC) [Mass/Vol]34.0 g/dL29.9-35.2FMarion HospitalV Auto (RBC) [Entitic vol]Ordered By: Geneva Jenkins on 20-25-9052RBL (RBC) [Entitic vol]87.4 fL81.0-99.0[facility] HospitalNo Panel InformationOrdered By: Geneva Jenkins on 79-05-570662310595-Lmrwefq Vitamin D Total46.0 ng/mLMagruder Memorial HospitalComment on above:<20 ng/mL Vit D kekcmzkfd80-<30 ng/mL Vit D gjperwkijozh85-411 ng/mL Vit D sufficient>100 ng/mL Potential ToxicityMiscellaneous TestCOMMENT.[facility] HospitalComment on above:Test Ordered: [id number] FerritinFerritin 153 [H ] ng/mL CB Reference Range: 15-150Performed at: - [facility] [id number] Director: Curry Rizzo PhD, Phone: [phone] Hormone (Intact)58 pg/vM93-48EumlzavofMagruder Memorial HospitalComment on above:Performed at: - [facility] [id number] Director: Curry Rizzo PhD, Phone: [phone] Phosphorus Level4.6 mg/dL2.6-4.7FMercy Health St. Elizabeth Boardman HospitalUrine Bacteria TRACE #/HPFAbnormalNONE [facility] HospitalUrine Occult Blood TRACE-INEGATIVEMagruder Memorial HospitalUrine Other CastsNONE SEEN #/LPF NONE [facility] HospitalUrine Other CrystalsNone Seen #/HPF None [facility] HospitalUrine Random Ccylhwyulq89.76 mg/dL 20.00-300.00[facility] HospitalUrine RBC2-5 #/HPFAbnormal0-2 [facility] HospitalUrine Squamous Epithelial CellsFEW #/LPF AbnormalNONE/RAREMagruder Memorial HospitalUrine WBC0-2 #/HPFAbnormalNONE [facility] HospitalPlatelet mean volume Auto (Bld) [Entitic vol]Ordered By: Geneva Mary Grace on 53-08-3945Wwmgpwxt mean volume (Bld) [Entitic vol]10.6 fL9.5-13.5FMercy Health St. Elizabeth Boardman HospitalPlatelets Auto (Bld) [#/Vol] Ordered By: Geneva Mary Grace on 42-03-9225Mikinasfo (Bld) [#/Vol]177 10 3/yI347-345 [facility] HospitalRBC Auto (Bld) [#/Vol]Ordered By: Geneva Mary Grace on 89-28-6780KJQ (Bld) [#/Vol]3.73 10 6/uLLow4.20-5.40[facility] Hospitalerum or plasma anion gap determinationOrdered By: Geneva Jenkins on 37-07-4811Wwqfr gap [Moles/Vol]15.8 mmol/LFMercy Health St. Elizabeth Boardman HospitalUrine protein/creatinine ratioOrdered By: Geneva Murillor on 99-56-9650Rihqota/Creatinine (U) [Ratio]5.45[facility] HospitalPerimetry studyon 11-26-2024 [facility] HealthcareRadiology Study observation (narrative)[facility]36on 88-24-545612Zmzcxrtjy echo result from 10/04/2024: MD Michelle Tan MA Please tell her the echo showed normal cardiac function with evidence of extra fluid in the body. Depending on symptoms of shortness of breath, she can take extra 0.5 tablet of bumex on as needed basis. Follow up as planned. Patient informed. She verbalized understanding.NormalParma Community General HospitalOffice Visiton [id number]-up [id number] SameerClaudia nina Katerin 1950 F Date Provider Department Center 09/16/2024 KARTHIK MACKAY ADY Calero Family History Problem Relation Age of Onset Heart attack Mother Heart failure Mother Heart attack Father Family Status - Relation Status Age at Mother Father Level of Service:08726 [place] OFFICE/OUTPATIENT ESTABLISHED MOD MDM 30 [facility] HospitalErythrocyte distribution width Auto (RBC) [Ratio]on 73-34-0794Baqgghczsvo distribution width (RBC) [Ratio]Erythrocyte distribution width [Ratio] by Automated count11.0-15.0[facility] HospitalEstimated glomerular filtration rate (GFR) non- Americanon 02-89-7449VSV/1.73 sq M.predicted among non-blacks MDRD (S/P/Bld) [Vol rate/Area]Estimated glomerular filtration rate (GFR) non- AmericanLow>=60 mL/min/1.73m 2FMercy Health [address] Elizabeth Boardman HospitalHematocrit Auto (Bld) [Volume fraction]on 46-12-9593Csijikkdss (Bld) [Volume fraction]Hematocrit [Volume Fraction] of Blood by Automated owwfuZec32.0-48.0[facility] HospitalHemoglobin [Mass/volume] in Bloodon 40-68-0748Xngtzcenng (Bld) [Mass/Vol] Hemoglobin [Mass/volume] in TpysiJzt75.0-16.0[facility] Iron binding capacity [Mass/volume] in Serum or Plasmaon 52-73-6549Jlfq binding capacity [Mass/Vol]Iron binding capacity [Mass/volume] in Serum or PlasmaLow 250.0-450.0[facility] HospitalIron saturation [Mass Fraction] in Serum or Plasmaon 97-69-9178Sexu saturation [Mass fraction]Iron saturation [Mass Fraction] in Serum or PlasmaMagruder Memorial HospitalLaboratory - Chemistry and Chemistry - challengeon 14-25-5673Snnpmkw [Mass/Vol]3.4 g/dL 3.4-5.0[facility] HospitalCalcium [Mass/Vol]9.3 mg/dL8.5-10.1 [facility] HospitalChloride [Moles/Vol]100 mmol/F26-204WtbsobvsjMagruder Memorial HospitalCO2 [Moles/Vol]28.1 mmol/L21.0-32.0[facility] HospitalCreatinine [Mass/Vol]2.44 mg/dLHigh0.55-1.02[facility] HospitalFerritin [Mass/Vol]145.0 ng/mL8.0-252.0[facility] HospitalGFR/1.73 sq M.predicted MDRD (S/P/Bld) [Vol rate/Area]24 mL/min/{1.73_m2} Low>=60 mL/min/1.73m 2FM[address] Elizabeth [facility] HospitalGlucose [Mass/Vol]162 mg/xSGfsm93-003YgpmbjsvfMagruder Memorial HospitalIron [Mass/Vol]53.0 ug/dL 50.0-170.0[facility] HospitalMagnesium [Mass/Vol]2.0 mg/dL1.8-2.4 [facility] HospitalPotassium [Moles/Vol]3.2 mmol/LLow3.5-5.1 [facility] Hospitalodium [Moles/Vol]140 mmol/J664-490PlgtjcpjhMagruder Memorial HospitalUrate [Mass/Vol]6.3 mg/dLHigh2.6-6.0[facility] HospitalUrea nitrogen [Mass/Vol]46.0 mg/dLHigh7.0-18.0[facility] HospitalUrea nitrogen/Creatinine [Mass ratio]18.9 mg/mgMagruder Memorial HospitalLaboratory - Urinalysison 44-79-2648Jyuevvw (U) [Mass/Vol]197.4 mg/dLHigh<=11.9[facility] HospitalLeukocytes [#/volume] corrected for nucleated erythrocytes in Blood by Automated counon 45-88-5179DEQ corrected for nucl RBC Auto (Bld) [#/Vol]Leukocytes [#/volume] corrected for nucleated erythrocytes in Blood by Automated coun4.0-11.0[facility] MCH Auto (RBC) [Entitic mass]on 85-49-4434HON (RBC) [Entitic mass]MCH [Entitic mass] by Automated count26.7-34.0[facility] HospitalMCHC Auto (RBC) [Mass/Vol]on 32-50-2886LUMB (RBC) [Mass/Vol]MCHC [Mass/volume] by Automated count29.9-35.2FMercy Health St. Elizabeth Board[facility] HospitalMCV Auto (RBC) [Entitic vol]on 84-54-2774PLH (RBC) [Entitic vol]MCV [Entitic volume] by Automated count 81.0-99.0[facility] HospitalNo Panel Informationon - Hydroxy Vitamin D Total51.6 ng/mLMagruder Memorial HospitalComment on above:<20 ng/mL Vit D lrszvzdyo56-<30 ng/mL Vit D xvejyabxafsz08-199 ng/mL Vit D sufficient>100 ng/mL Potential ToxicityParathyroid Hormone (Intact)78 pg/mL Yewruzlh52-46ZserkjruwMagruder Memorial HospitalComment on above:Performed at: - [facility]coP[place] [id number] Director: Curry Rizzo PhD, Phone: [phone] Level5.4 mg/dLHigh2.6-4.7FMercy Health St. Elizabeth Board[facility] HospitalUrine Random Cspjsbbbnf01.10 mg/dL20.00-300.00[facility] HospitalPlatelet mean volume Auto (Bld) [Entitic vol]on 95-92-5832Ewewzcak mean volume (Bld) [Entitic vol]Platelet mean volume [Entitic volume] in Blood by Automated count9.5-13.5FMercy Health St. [facility] Platelets Auto (Bld) [#/Vol]on 44-72-9933Jsxrlbdeu (Bld) [#/Vol]Platelets [#/volume] in Blood by Automated woyhy646-255DpwwvbpdhMag[facility]uder [facility] Hospital RBC Auto (Bld) [#/Vol]on 51-49-7520RLF (Bld) [#/Vol]Erythrocytes [#/volume] in Blood by Automated countLow4.20-5.40[facility]uther[facility] Hospitalerum or plasma anion gap determinationon 81-37-2526Gmicz gap [Moles/Vol]Serum or plasma anion gap determinationMagruder Memorial HospitalUrine protein/creatinine ratioon 61-63-1630Dbhapuy/Creatinine (U) [Ratio]Urine protein/creatinine ratio [facility] HospitalOphthalmic OCT panelon 03-98-4447BVTHNorth [facility] Eye Images reviewed and comparison made to baseline, Images reviewed. To assess optic nerve function and for use in future follow-up. Reliability: good and adequate. Left Eye Images reviewed and comparison made to baseline, Images reviewed. To assess optic nerve function and for use in future follow-up. Reliability: good and adequate. Notes Superior nerve fiber layer (NFL) thinning both eyes (OU). Stable.[facility] HealthcareRadiology Study observation (narrative)[facility] NetworkOptical coherence tomography study reporton 64-85-1686ZIGEUNC Health [facility] Radiology Study observation (narrative)[facility] NetworkErythrocyte distribution width Auto (RBC) [Ratio]on 61-94-9170Sjjicehmrqv distribution width (RBC) [Ratio]Erythrocyte distribution width [Ratio] by Automated loziwFsbr60.0-15.0 [facility] HospitalEstimated glomerular filtration rate (GFR) non- Americanon 86-59-0113SGZ/1.73 sq M.predicted among non-blacks MDRD (S/P/Bld) [Vol rate/Area]Estimated glomerular filtration rate (GFR) non- AmericanLow>=60 mL/min/1.73m 2FMercy Health St. Elizabeth [facility] HospitalHematocrit Auto (Bld) [Volume fraction]on 18-72-2870Hsabnxjfkt (Bld) [Volume fraction]Hematocrit [Volume Fraction] of Blood by Automated ziabkDxy95.0-48.0[facility] HospitalHemoglobin [Mass/volume] in Bloodon 86-00-4795Bhkoytwgfd (Bld) [Mass/Vol]Hemoglobin [Mass/volume] in IvlavPsu70.0-16.0[facility] HospitalIron binding capacity [Mass/volume] in Serum or Plasmaon 68-24-8851Soxg binding capacity [Mass/Vol]Iron binding capacity [Mass/volume] in Serum or Vnyruk918.0-450.0[facility] HospitalIron saturation [Mass Fraction] in Serum or Plasmaon 90-52-7921Iizr saturation [Mass fraction] Iron saturation [Mass Fraction] in Serum or PlasmaMagruder Memorial HospitalLaboratory - Chemistry and Chemistry - challengeon 45-03-8330Jxmakld [Mass/Vol]3.3 g/dLLow3.4-5.0[facility] HospitalCalcium [Mass/Vol] 9.2 mg/dL8.5-10.1FMercy Health St. Elizabeth [facility] HospitalChloride [Moles/Vol]103 mmol/L 98-107[facility] HospitalCO2 [Moles/Vol]25.9 mmol/L21.0-32.0 [facility] HospitalCreatinine [Mass/Vol]2.24 mg/dLHigh0.55-1.02 [facility] HospitalFerritin [Mass/Vol]151.0 ng/mL8.0-252.0 [facility] HospitalGFR/1.73 sq M.predicted MDRD (S/P/Bld) [Vol rate/Area]26 mL/min/{1.73_m2}Low>=60 mL/min/1.73m 2FMer[address] Health St[address] Elizabeth [facility] HospitalGlucose [Mass/Vol]169 mg/yDCiqf99-398NcfjmfqnmMagruder Memorial HospitalIron [Mass/Vol]41.0 ug/dLLow50.0-170.0[facility] HospitalMagnesium [Mass/Vol]2.0 mg/dL1.8-2.4FMercy Health St. Elizabeth [facility] HospitalPotassium [Moles/Vol] 3.6 mmol/L3.5-5.1FMercy Health St. [facility] Hospitalodium [Moles/Vol]141 mmol/L 136-145[facility] HospitalUrate [Mass/Vol]5.1 mg/dL2.6-6.0 [facility] HospitalUrea nitrogen [Mass/Vol]44.0 mg/dLHigh7.0-18.0 [facility] HospitalUrea nitrogen/Creatinine [Mass ratio]19.6 mg/mg [facility] HospitalBilirubin Ql (U)NegativeNEGATIVEMagruder Memorial HospitalGlucose (U) [Mass/Vol]NegativeNEGATIVEMagruder Memorial HospitalKetones Ql (U)NegativeNEGATIVEMagruder Memorial HospitalpH (U)5.5 [pH]5.0-9.0[facility] Hospitalpecific gravity (U) [Rel density]1.0201.005-1.025[facility] HospitalUrobilinogen Qn (U)0.2 {Kelly'U}/dL0.2-1.0[facility] HospitalLaboratory - Specimen informationon 64-13-7522Pfhotkwmag (U)CLEARCLEARFMercy Health St. Elizabeth Board[facility] HospitalColor (U)LT. YELLOWYELLOWMagruder Memorial HospitalLaboratory - Urinalysison 84-02-9293Ssamnek casts LM Ql (Urine sed)RAREMagruder Memorial HospitalLeukocyte esterase Test strip Ql (U)MODERATEAbnormalNEGATIVE [facility] HospitalMucus Ql (Urine sed)TRACEAbnormalNONE SEEN [facility] HospitalNitrite Ql (U)NegativeNEGATIVEMagruder Memorial HospitalProtein (U) [Mass/Vol]122.0 mg/dLHigh<=11.9[facility] HospitalProtein Ql (U)100 mg/dLAbnormalNEG/TRACEMagruder Memorial HospitalLeukocytes [#/volume] corrected for nucleated erythrocytes in Blood by Automated counon 06-34-7355IST corrected for nucl RBC Auto (Bld) [#/Vol]Leukocytes [#/volume] corrected for nucleated erythrocytes in Blood by Automated coun4.0-11.0[facility] HospitalMCH Auto (RBC) [Entitic mass]on 10-02-1796ZXQ (RBC) [Entitic mass]MCH [Entitic mass] by Automated count26.7-34.0[facility] HospitalHC Auto (RBC) [Mass/Vol]on 20-12-5227QDBM (RBC) [Mass/Vol]MCHC [Mass/volume] by Automated count29.9-35.2FMercy Health St. [facility] HospitalMCV Auto (RBC) [Entitic vol]on 06-36-4007RCP (RBC) [Entitic vol]MCV [Entitic volume] by Automated count 81.0-99.0[facility] HospitalNo Panel Informationon - Hydroxy Vitamin D Total56.3 ng/mLMagruder Memorial HospitalComment on above:<20 ng/mL Vit D gbgfgpovh87-<30 ng/mL Vit D woybeethqrod81-128 ng/mL Vit D sufficient>100 ng/mL Potential ToxicityParathyroid Hormone (Intact)9 pg/mL Rjlqwmnx64-84SqlxfkjbtMagruder Memorial HospitalComment on above:Performed at: [facility] [place] [id number] Director: Curry Rizzo PhD, Phone: [phone] Level4.8 mg/dLHigh2.6-4.7FMercy Health St. Elizabeth [facility] HospitalUrine BacteriaSMALL #/HPFAbnormalNONE [facility] HospitalUrine Occult BloodNegativeNEGATIVEMagruder Memorial HospitalUrine Other CastsSEEN #/LPFAbnormalNONE [facility] HospitalUrine Other CrystalsNone Seen #/HPFNone [facility] HospitalUrine Random Rhcaxsxacf06.86 mg/dL20.00-300.00[facility] HospitalUrine RBC0-2 #/HPF0-2FMercy Health St. Elizabeth Board[facility] HospitalUrine Squamous Epithelial CellsMODERATE #/LPFAbnormalNONE/RAREMagruder Memorial HospitalUrine WBC2-5 #/HPFAbnormalNONE [facility] HospitalPlatelet mean volume Auto (Bld) [Entitic vol]on 30-25-8947Qwcejbfm mean volume (Bld) [Entitic vol]Platelet mean volume [Entitic volume] in Blood by Automated count9.5-13.5FMercy Health St. Elizabeth Boardman HospitalPlatelets Auto (Bld) [#/Vol]on 88-06-2484Qkgheybac (Bld) [#/Vol]Platelets [#/volume] in Blood by Automated karlp829-886HbntxjobbMagruder Memorial HospitalRBC Auto (Bld) [#/Vol]on 87-13-0712BPF (Bld) [#/Vol]Erythrocytes [#/volume] in Blood by Automated count Low4.20-5.40[facility]utheran Hospitalerum or plasma anion gap determinationon 53-36-8079Eozeu gap [Moles/Vol]Serum or plasma anion gap determinationMagruder Memorial HospitalUrine protein/creatinine ratioon 11-49-0009Vdqekuf/Creatinine (U) [Ratio]Urine protein/creatinine ratioMagruder Memorial HospitalAlbumin [Mass/volume] in Serum or Plasmaon 01-01-2024 Albumin [Mass/Vol]3.5 g/dL2.9-4.4FMercy Health St. Elizabeth Board[facility] HospitalErythrocyte distribution width Auto (RBC) [Ratio]on 37-29-6510Saorsqhsdap distribution width (RBC) [Ratio]15.2 %High11.0-15.0[facility] HospitalEstimated glomerular filtration rate (GFR) non- Americanon 05-50-2657HGQ/1.73 sq M.predicted among non-blacks MDRD (S/P/Bld) [Vol rate/Area]21 mL/min/{1.73_m2} Low>=60[facility] HospitalHematocrit Auto (Bld) [Volume fraction] on 70-64-7074Gevamrbfmm (Bld) [Volume fraction]32.4 %Low36.0-48.0[facility] HospitalHemoglobin [Mass/volume] in Bloodon 74-59-2852Stvhsnyitp (Bld) [Mass/Vol]10.4 g/dLLow12.0-16.0[facility] HospitalIgA [Mass/volume] in Serum or Plasmaon 72-99-1820WtD [Mass/Vol]580 mg/dLAbnormal 64-422Mag[facility] HospitalIgG [Mass/volume] in Serum or Plasmaon 27-02-8054AfV [Mass/Vol]1132 mg/rG652-9970PshzyemiiMagruder Memorial HospitalIgM [Mass/volume] in Serum or Plasmaon 07-04-8064RfE [Mass/Vol]155 mg/yI58-934 [facility] HospitalImmunofixation for Urineon 01-01-2024 Interpretation Immunofixation (U) [Interp]Comment.[facility] HospitalComment on above:No monoclonality detected.Performed at: [place] [id number] [place], [place] [id number] Director: Curry Rizzo PhD, Phone: [phone] light chains.kappa.free [Mass/volume] in Serum on 94-71-9319Jnolhwlveybutv light chains.kappa.free (S) [Mass/Vol]75.5 mg/L Abnormal3.3-19.4FMercy Health St. Elizabeth Boardman HospitalImmunoglobulin light chains.kappa.free/Immunoglobulin light chains.lambda.free [Priscilla 01-01-2024 Immunoglobulin light chains.kappa.free/Immunoglobulin light chains.lambda.free (S) [Mass ratio]1.250.26-1.65[facility] HospitalComment on above: Performed at: [facility] [facility] [address] [id number] Director: Curry Rizzo PhD, Phone: [phone] light chains.lambda.free [Mass/volume] in Serum or Plasmaon 42-50-0989Idayrhshcdwvfs light chains.lambda.free [Mass/Vol]60.4 mg/LAbnormal5.7-26.3FMercy Health St. Elizabeth Board[facility] HospitalIron binding capacity [Mass/volume] in Serum or Plasmaon 78-93-0571Huad binding capacity [Mass/Vol]266.0 ug/dL250.0-450.0[facility] HospitalIron saturation [Mass Fraction] in Serum or Plasmaon 00-87-3428Ixsd saturation [Mass fraction]16.2 %[facility] - Chemistry and Chemistry - challengeon 44-00-2460Uhiibou [Mass/Vol] 3.3 g/dLLow3.4-5.0[facility] HospitalCalcium [Mass/Vol]9.2 mg/dL 8.5-10.1FMercy Health St. Elizabeth Board[facility] HospitalChloride [Moles/Vol]103 mmol/L98-107 [facility] HospitalCO2 [Moles/Vol]27.3 mmol/L21.0-32.0[facility] HospitalCreatinine [Mass/Vol]2.28 mg/dLHigh0.55-1.02[facility] HospitalFerritin [Mass/Vol]123.0 ng/mL8.0-252.0[facility] HospitalGFR/1.73 sq M.predicted MDRD (S/P/Bld) [Vol rate/Area]26 mL/min/{1.73_m2}Low>=60[facility] HospitalGlucose [Mass/Vol]139 mg/mLJgpj77-730BkdmnovjuMagruder Memorial HospitalIron [Mass/Vol]43.0 ug/dLLow 50.0-170.0[facility] HospitalMagnesium [Mass/Vol]2.3 mg/dL1.8-2.4 [facility] HospitalPotassium [Moles/Vol]4.4 mmol/L3.5-5.1FMercy Health St. Elizabeth Youngstown Hospitalodium [Moles/Vol]138 mmol/R969-884KfioigtzdMagruder Memorial HospitalUrate [Mass/Vol]5.9 mg/dL2.6-6.0[facility] Urea nitrogen [Mass/Vol]50.0 mg/dLHigh7.0-18.0[facility] Urea nitrogen/Creatinine [Mass ratio]21.9 mg/mgMagruder Memorial Hospital Laboratory - Urinalysison 84-97-8519Ajtbrbj (U) [Mass/Vol]93.2 mg/dLHigh<=11.9 [facility] HospitalLeukocytes [#/volume] corrected for nucleated erythrocytes in Blood by Automated counon 23-32-0118LLO corrected for nucl RBC Auto (Bld) [#/Vol]8.9 10 3/uL4.0-11.0[facility] HospitalH Auto (RBC) [Entitic mass]on 75-33-2947ERU (RBC) [Entitic mass]27.4 pg26.7-34.0 [facility] HospitalMCHC Auto (RBC) [Mass/Vol]on 50-04-8108WXZX (RBC) [Mass/Vol]32.1 g/dL29.9-35.2FMercy Health St. Elizabeth Board[facility] HospitalMCV Auto (RBC) [Entitic vol]on 67-26-9609ROH (RBC) [Entitic vol]85.3 fL81.0-99.0[facility] HospitalNo Panel Informationon 41-36-612213648624-Hpqnhbz Vitamin D Total53.8 ng/mLMagruder Memorial HospitalComment on above:<20 ng/mL Vit D kboxnqjfi23-<30 ng/mL Vit D asjzgkxxjzmi80-419 ng/mL Vit D sufficient>100 ng/mL Potential ToxicityParathyroid Hormone (Intact)95 pg/zWHfvrcydy84-06CtuhupkedMagruder Memorial HospitalComment on above:Performed at: - [facility] [id number] Director: Curry Rizzo PhD, Phone: [phone] Level4.0 mg/dL2.6-4.7FMercy Health St. [facility] Hospital Protein Electrophoresis M-SpikeNot Observed g/dLNot ObservedMagruder Memorial HospitalProtein Electrophoresis NoteComment.[facility] HospitalComment on above:Protein electrophoresis scan will follow via computer,mail, or cloud infrastructure architect delivery.Urine Random Vhcvhgirao46.24 mg/dL 20.00-300.00[facility] HospitalPlatelet mean volume Auto (Bld) [Entitic vol]on 86-62-4395Akrvgdtv mean volume (Bld) [Entitic vol]10.9 fL 9.5-13.5FMercy Health St. Elizabeth Board[facility] HospitalPlatelets Auto (Bld) [#/Vol]on 69-49-2128Vgpctnjvf (Bld) [#/Vol]184 10 3/wR899-743AvschfkhpMagruder Memorial HospitalProtein [Mass/volume] in Serum or Plasmaon 19-89-0413Tzxwfto [Mass/Vol]7.0 g/dL6.0-8.5FMercy Health St. Elizabeth Board[facility] HospitalRBC Auto (Bld) [#/Vol]on 01-01-2024 RBC (Bld) [#/Vol]3.80 10 6/uLLow4.20-5.40[facility] Hospitalerum globulin measurement (mass/volume)on 41-99-8200Ehmnkifq (S) [Mass/Vol]3.5 g/dL 2.2-3.9[facility] Hospitalerum or plasma albumin/globulin mass ratioon 09-25-5239Jastuqc/Globulin [Mass ratio]1.1 {ratio}0.7-1.7FMercy Health St. Elizabeth [facility] Hospitalerum or plasma alpha 1 globulin measurement by electrophoresis (mass/volume)on 67-70-1303Jnehj 1 globulin Elph [Mass/Vol]0.3 g/dL0.0-0.4FMercy Health St. Elizabeth [facility] Hospitalerum or plasma alpha 2 globulin measurement by electrophoresis (mass/volume)on 32-58-4133Kgaxp 2 globulin Elph [Mass/Vol]0.9 g/dL0.4-1.0[facility] Hospitalerum or plasma anion gap determinationon 66-88-5238Fjnaj gap [Moles/Vol]12.1 mmol/LFMercy Health St. Elizabeth Youngstown Hospitalerum or plasma beta globulin measurement by electrophoresis (mass/volume)on 25-73-2270Hcba globulin Elph [Mass/Vol]1.1 g/dL0.7-1.3FMercy Health St. Elizabeth [facility] Hospitalerum or plasma gamma globulin measurement by electrophoresis (mass/volume)on 37-52-7770Kwayi globulin Elph [Mass/Vol]1.3 g/dL 0.4-1.8[facility] Hospitalerum or plasma immunoelectrophoresis interpretationon 31-98-6027Wjncjyrqmomasm IEP [Interp]Comment.[facility] HospitalComment on above:No monoclonality detected.Urine protein/creatinine ratioon 02-03-4309Gdzjcep/Creatinine (U) [Ratio]1.06[facility] HospitalBNPon 07-69-0315Hosczxddjse peptide B (Bld) [Mass/Vol] 1458.0 pg/mLCritically high<=900.0The Memorial HospitalComment on above: Performed By: #### LIPID, TSH, FT3 #### [facility] [address] [place] [address] Dr. Andrey Jimenez AUTO DIFFon 79-09-9738GQFJ #0.1 103/ulNormal0.0-0.1The Memorial HospitalComment on above:Performed By: #### VITAD, FETIBC, FERR #### [facility] [address] [address] [address] Andrey HargroveBasophils/100 WBC (Bld)0.7 %Normal0.2-2.0[facility] Comment on above:Performed By: #### VITAD, FETIBC, FERR #### [facility] [address] [place] [address] Dr. Andrey Copeland #0.4 103/ulNormal0.0-0.7The Memorial HospitalComment on above: Performed By: #### VITAD, FETIBC, FERR #### [facility] [address] [place] [address] Dr. Andrey Wilkinsonosinophils/100 WBC (Bld)4.6 %Normal0.9-7.0[facility] Comment on above:Performed By: #### VITAD, FETIBC, FERR #### [facility] [address] [place] [address] Dr. Andrey Wilkinsonrythrocyte distribution width (RBC) [Ratio]13.7 %Ylfqrs08.0-15.0 The Memorial HospitalComment on above:Performed By: #### VITAD, FETIBC, FERR #### [facility] [address] [place] [address] Dr. Andrey HragroveHematocrit (Bld) [Volume fraction]35.5 %Critically low36.0-48.0 The Memorial HospitalComment on above:Performed By: #### VITAD, FETIBC, FERR #### [facility] [address] [place] [address] Dr. Andrey HargroveHemoglobin (Bld) [Mass/Vol]12.0 g/wAZyabse24.0-16.0The [facility] Hospitalment on above:Performed By: #### VITAD, FETIBC, FERR #### [facility] [address] [place] [address] Dr. Andrey Willard #0.02 10e3/ulNormal0.00-0.03The [facility] Hospitalment on above:Performed By: #### VITAD, FETIBC, FERR #### [facility] [address] [place] [address] Dr. Andrey HargroveIG %0.2 %Normal0.0-0.5The Memorial HospitalComment on above: Performed By: #### VITAD, FETIBC, FERR #### [facility] [address] [place] [address] Dr. Andrey Jarrett #1.5 103/ulNormal1.2-3.8The Memorial HospitalComment on above:Performed By: #### VITAD, FETIBC, FERR #### [facility] [address] [place] [address] Dr. Andrey Derashocytes/100 WBC (Bld)18.1 %Critically low20.5-60.0The [facility] HospitalComment on above:Performed By: #### VITAD, FETIBC, FERR #### [facility] [address] [place] [address] Dr. Andrey Ferrell DIFF REQNONormalThe Memorial HospitalComment on above: Performed By: #### VITAD, FETIBC, FERR #### [facility] [address] [place] [address] Dr. Andrey Coker (RBC) [Entitic mass]29.3 dzUbrxqe70.7-34.0The [facility] HospitalComment on above:Performed By: #### VITAD, FETIBC, FERR #### [facility] [address] [place] [address] Dr. Andrey Coker (RBC) [Mass/Vol]33.8 g/eMHxbtcc78.9-35.2The Memorial HospitalComment on above:Performed By: #### VITAD, FETIBC, FERR #### [facility] [address] [place] [address] Dr. Andrey Coker (RBC) [Entitic vol]86.8 iVXknwaq49.0-99.0The Memorial HospitalComment on above:Performed By: #### VITAD, FETIBC, FERR #### [facility] [address] [place] [address] Dr. Andrey Magaña #0.7 103/ulNormal0.3-0.8The [facility] HospitalComment on above:Performed By: #### VITAD, FETIBC, FERR #### [facility] [address] [place] [address] Dr. Andrey Hamiltonocytes/100 WBC (Bld)7.9 %Normal1.7-12.0[facility] Comment on above:Performed By: #### VITAD, FETIBC, FERR #### [facility] [address] [place] [address] Dr. Andrey GrajedaUT #5.7 103/ulNormal1.4-6.5The Memorial HospitalComment on above:Performed By: #### VITAD, FETIBC, FERR #### [facility] [address] [place] [address] Dr. Andrey Grajedautrophils/100 WBC (Bld)68.5 %Quqcjg47.0-75.0The [facility] Hospitalment on above:Performed By: #### VITAD, FETIBC, FERR #### [facility] [address] [place] [address] Dr. Andrey HargrovePlatelet mean volume (Bld) [Entitic vol]10.4 fLNormal9.5-13.5The [facility] Hospitalment on above:Performed By: #### VITAD, FETIBC, FERR #### [facility] [address] [place] [address] Dr. Andrey HargrovePLT204 103/hlBiyzxc552-908Zcz [facility] Hospitalment on above: Performed By: #### VITAD, FETIBC, FERR #### [facility] [address] [place] [address] Dr. Andrey HargroveRBC4.09 106/ulCritically low4.20-5.40The [facility] on above:Performed By: #### VITAD, FETIBC, FERR #### [facility] [address] [place] [address] Dr. Andrey HargroveWBC8.3 103/ulNormal4.0-11.0[facility] on above: Performed By: #### VITAD, FETIBC, FERR #### [facility] [address] [place] [address] Dr. Andrey HargrovePROF CHEM 8 (BAS METB)on 58-58-9085Tgiup gap [Moles/Vol]11.1 mmol/LNormalThe Memorial HospitalComment on above:Performed By: #### LIPID, TSH, FT3 #### [facility] [address] [address] [address] Andrey HargroveCalcium [Mass/Vol]9.2 mg/dLNormal8.5-10.1[facility] Comment on above:Performed By: #### LIPID, TSH, FT3 #### [facility] [address] [address] [address] Andrey HargroveChloride [Moles/Vol]102 mmol/GBoydjg15-089Gjt [facility] Comment on above:Performed By: #### LIPID, TSH, FT3 #### [facility] [address] [address] [address] Andrey HargroveCO2 [Moles/Vol]31.2 mmol/MAuoweq74.0-32.0[facility] Comment on above:Performed By: #### LIPID, TSH, FT3 #### [facility] [address] [address] [address] Andrey HargroveCreatinine [Mass/Vol]1.79 mg/dLCritically high0.55-1.02The Memorial HospitalComment on above:Performed By: #### LIPID, TSH, FT3 #### [facility] [address] [address] [address] Andrey WilkinsonGFR-AF OGAPCRAS11 mL/min/1.03n1Xfgqshglgq low>=60The Memorial HospitalComment on above:Performed By: #### LIPID, TSH, FT3 #### [facility] [address] [address] [address] Andrey WilkinsonGFR-NON AF CFOECBPD70 mL/min/1.13i5Kuzgwihrpk low>=60The Memorial HospitalComment on above:Performed By: #### LIPID, TSH, FT3 #### [facility] [address] [address] [address] Andrey HargroveGlucose [Mass/Vol]148 mg/dLCritically afby98-071Ppp Memorial HospitalComment on above:Performed By: #### LIPID, TSH, FT3 #### [facility] [address] [address] [address] Andrey HargrovePotassium [Moles/Vol]3.3 mmol/LCritically low3.5-5.1The Memorial HospitalComment on above:Performed By: #### LIPID, TSH, FT3 #### [facility] [address] [address] [address] Andrey HargroveSodium [Moles/Vol]141 mmol/TUiiffg913-372Rpz [facility] Comment on above:Performed By: #### LIPID, TSH, FT3 #### [facility] [address] [address] [address] Andrey HargroveUrea nitrogen [Mass/Vol]41.0 mg/dLCritically high7.0-18.0The Memorial HospitalComment on above:Performed By: #### LIPID, TSH, FT3 #### [facility] [address] [address] [address] Andrey Mccarty nitrogen/Creatinine [Mass ratio]22.9 mg/mgNormalThe Memorial HospitalComment on above:Performed By: #### LIPID, TSH, FT3 #### [facility] [address] [place] [address] Dr. Andrey Miguel INTACTon 95-57-0788RCP, Zewtbp76 pg/bWMaiagc21-62Sgo Memorial HospitalComment on above:Performed By: #### VITAD, FETIBC, FERR #### [facility] [address] [place] [address] Dr. Andrey Suazo THYROIDon 26-87-4360TH THYROIDEXAMINATION: US THYROID HISTORY: Non-toxic multinodular goiter COMPARISON: [...] Electronically authenticated by: RENETTA RENEE Date: 2022-08-24 16:[address] [place], [place] [address]FERRITINon 53-73-8072Ambgtqsl [Mass/Vol]114.0 ng/mLNormal 8.0-252.0The Memorial HospitalComment on above:Performed By: #### VITAD, FETIBC, FERR #### [facility] [address] [place] [address] Dr. Andrey HargroveHEMOGRAM AND PLATELon 86-96-4763Oqvwjnsfkj (Bld) [Volume fraction]34.9 %Critically low36.0-48.0The Memorial HospitalComment on above: Performed By: #### VITAD, FETIBC, FERR #### [facility] [address] [place] [address] Dr. Andrey HargroveHemoglobin (Bld) [Mass/Vol]11.8 g/dLCritically low12.0-16.0The Memorial HospitalComment on above:Performed By: #### VITAD, FETIBC, FERR #### [facility] [address] [place] [address] Dr. And[facility]roveJEW[facility] (RBC) [Entitic mass]28.6 gjUwyfjs59.7-34.0The Memorial HospitalComment on above:Performed By: #### VITAD, FETIBC, FERR #### [facility] [address] [place] [address] Dr. Andrey Coker (RBC) [Mass/Vol]33.8 g/pMHakjru65.9-35.2The [facility] HospitalComment on above:Performed By: #### VITAD, FETIBC, FERR #### [facility] [address] [place] [address] Dr. Andrey Coker (RBC) [Entitic vol]84.7 sKBcxvjx11.0-99.0The [facility] HospitalComment on above:Performed By: #### VITAD, FETIBC, FERR #### [facility] [address] [place] [address] Dr. Andrey HargrovePLT215 103/xtCaskhp455-096Tah Memorial HospitalComment on above: Performed By: #### VITAD, FETIBC, FERR #### [facility] [address] [place] [address] Dr. Andrey HargroveRBC4.12 106/ulCritically low4.20-5.40The [facility] HospitalComment on above:Performed By: #### VITAD, FETIBC, FERR #### [facility] [address] [place] [address] Dr. Andrey HargroveWBC9.2 103/ulNormal4.0-11.0The Memorial HospitalComment on above: Performed By: #### VITAD, FETIBC, FERR #### [facility] [address] [place] [address] Dr. Andrey Mason AND [facility] 08-23-2022% GJEMGGVEJV23.4 %NormalThe Memorial HospitalComment on above:Performed By: #### VITAD, FETIBC, FERR #### [facility] [address] [place] [address] Dr. Andrey Mason [Mass/Vol]44.0 ug/dLCritically low50.0-170.0The Memorial HospitalComment on above:Performed By: #### VITAD, FETIBC, FERR #### [facility] [address] [place] [address] Dr. Yilan ChangTIBC PBGUKM057.0 ug/iAReanms468.0-450.0[facility] Comment on above:Performed By: #### VITAD, FETIBC, FERR #### [facility] [address] [place] [address] Dr. Andrey HargroveMAGNESIUMon 68-54-4645Veejujfhj [Mass/Vol]2.1 mg/dLNormal1.8-2.4 The Memorial HospitalComment on above:Performed By: #### LIPID, TSH, FT3 #### [facility] [address] [place] [address] Dr. Andrey HargroveRENAL FUNCTION PANELon 85-16-8813Hosxkgr [Mass/Vol]3.3 g/dL Critically low3.4-5.0The Memorial HospitalComment on above:Performed By: #### LIPID, TSH, FT3 #### [facility] [address] [place] [address] Dr. Andrey HargroveCalcium [Mass/Vol]9.4 mg/dLNormal8.5-10.1[facility] Comment on above:Performed By: #### LIPID, TSH, FT3 #### [facility] [address] [place] [address] Dr. Andrey HargroveChloride [Moles/Vol]103 mmol/PEpehbi71-223DftKettering Health Main Campus Comment on above:Performed By: #### LIPID, TSH, FT3 #### [facility] [address] [place] [address] Dr. Andrey HargroveCO2 [Moles/Vol]26.8 mmol/RBylwqc78.0-32.0[facility] Comment on above:Performed By: #### LIPID, TSH, FT3 #### [facility] [address] [place] [address] Dr. Andrey HargroveCreatinine [Mass/Vol]1.94 mg/dLCritically high0.55-1.02[facility] CampusComment on above:Performed By: #### LIPID, TSH, FT3 #### [facility] [address] [place] [address] Dr. Yilan ChangEGFR-AF BHEGUTEU98 mL/min/1.07r9Yelvuonmya low>=60The Memorial HospitalComment on above:Performed By: #### LIPID, TSH, FT3 #### [facility] [address] [address] [address] Andrey WilkinsonGFR-NON AF UYCIHRXB62 mL/min/1.62n4Lbnjosyxsk low>=60The [facility] HospitalComment on above:Performed By: #### LIPID, TSH, FT3 #### [facility] [address] [address] [address] Andrey HargroveGlucose [Mass/Vol]166 mg/dLCritically vpfi66-933Zoj Memorial HospitalComment on above:Performed By: #### LIPID, TSH, FT3 #### [facility] [address] [place] [address] Dr. Andrey HargrovePhosphate [Mass/Vol]4.6 mg/dLNormal2.6-4.7[facility] Comment on above:Performed By: #### LIPID, TSH, FT3 #### [facility] [address] [address] [address] Andrey HargrovePotassium [Moles/Vol]4.3 mmol/LNormal3.5-5.1[facility] Comment on above:Performed By: #### LIPID, TSH, FT3 #### [facility] [address] [address] [address] Andrey HargroveSodium [Moles/Vol]137 mmol/DWbooyn241-681[facility] Comment on above:Performed By: #### LIPID, TSH, FT3 #### [facility] [address] [place] [address] Dr. Andrey HargroveUrea nitrogen [Mass/Vol]39.0 mg/dLCritically high7.0-18.0The [facility] HospitalComment on above:Performed By: #### LIPID, TSH, FT3 #### [facility] [address] [place] [address] Dr. Andrey HargroveUA RANDOM W/MICROSCOPICon 95-91-5461PWUMFGRNMVGB SEENNormalNONE SEENThe Memorial HospitalComment on above:Performed By: #### VITAD, FETIBC, FERR #### [facility] [address] [address] [address] Andrey HargroveBilirubin Ql (U)NegativeNormalNEGPremier Health [facility] Comment on above:Performed By: #### VITAD, FETIBC, FERR #### [facility] [address] [address] [address] Andrey Rodriguez SEENNormalNONE SEENSuburban Community [facility] & [facility] on above:Performed By: #### VITAD, FETIBC, FERR #### [facility] [address] [address] [address] Andrey HargroveClarity (U)CLEARNormalCLEARKettering Health Main CampusComhealthsource sag[place] on above: Performed By: #### VITAD, FETIBC, FERR #### [facility] [address] [address] [address] Andrey Guevaralor (U)LT. YELLOWNormalYELLOWKettering Health Main CampusComment on above:Performed By: #### VITAD, FETIBC, FERR #### [facility] [address] [address] [address] Andrey HargroveCrystals LM Nom (Urine sed)NONE SEENNormalNONE SEENKettering Health Main CampusComhealthsource [place] on above:Performed By: #### VITAD, FETIBC, FERR #### [facility] [address] [address] [address] Balderas ChangEpithelial cells LM Ql (Urine sed)RARENormalNONE SEEN /RAREKettering Health Main CampusComhealthsource [place] on above:Performed By: #### VITAD, FETIBC, FERR #### [facility] [address] [address] [address] Andrey HargroveGlucose Ql (U)NegativeNormalNEGATIVEKettering Health Main CampusComhealthsource [place] on above:Performed By: #### VITAD, FETIBC, FERR #### [facility] [address] [address] [address] Andrey HargroveHemoglobin Ql (U)NegativeNormalNEGATIVEKettering Health Main Campus Comment on above:Performed By: #### VITAD, FETIBC, FERR #### [facility] [address] [address] [address] Andrey Snyder Ql (U)NegativeNormalNEGATIVEKettering Health Main CampusComment on above:Performed By: #### VITAD, FETIBC, FERR #### [facility] [address] [address] [address] Andrey HargroveLEUKOCYTESNegativeNormalNEGATIVEThe Memorial HospitalComment on above:Performed By: #### VITAD, FETIBC, FERR #### [facility] [address] [address] [address] Andrey Gaona SEENNormalNONE SEENKettering Health Main CampusComment on above:Performed By: #### VITAD, FETIBC, FERR #### [facility] [address] [address] [address] Andrey Bernal Ql (U)NegativeNormalNEGATIVEThe Memorial HospitalComment on above:Performed By: #### VITAD, FETIBC, FERR #### [facility] [address] [address] [address] Andrey Ramírez (U)6.5 [pH]Normal5-9K[facility] CampusComment on above: Performed By: #### VITAD, FETIBC, FERR #### [facility] [address] [address] [address] Andrey Husain SEENAbnormal0-2The Memorial HospitalComment on above: Performed By: #### VITAD, FETIBC, FERR #### [facility] [address] [address] [address] Andrey HargroveSPEC GRAVITY1.478Dfolmd7.005-<=1.025The Memorial HospitalComment on above:Performed By: #### VITAD, FETIBC, FERR #### [facility] [address] [address] [address] Andrey Link APOEZWM25 mg/dlAbnormalNEGATIVE/ TRACEThe [facility] Comment on above:Performed By: #### VITAD, FETIBC, FERR #### [facility] [address] [place] [address] Dr. Andrey Mercadobilnieves Qn (U)0.2 {Kelly'U}/dLNormal0.2 - 1.0[facility] CampusComment on above:Performed By: #### VITAD, FETIBC, FERR #### [facility] [address] [place] [address] Dr. Andrey DumasNONKaterin SEENNormalNONE SEENKettering Health Main CampusComment on above: Performed By: #### VITAD, FETIBC, FERR #### [facility] [address] [place] [address] Dr. Andrey HargroveURIC ACID SERUMon 61-15-5726Ytrqo [Mass/Vol]5.8 mg/dLNormal 2.6-6.0The Memorial HospitalComment on above:Performed By: #### LIPID, TSH, FT3 #### [facility] [address] [place] [address] Dr. Andrey HargroveVITAMIN D 25 OHon 20-13-0012BIC D 25-OH69.0 ng/mLNormalKettering Health Main CampusComment on above:Performed By: #### VITAD, FETIBC, FERR #### [facility] [address] [place] [address] Dr. Andrey Blake RANGESSEE BELOWSelect Medical TriHealth Rehabilitation HospitalComment on above: Result Comment: <20 ng/mL Vit D deficient 20 - <30 ng/mL Vit D insufficient 30 - 100 ng/mL Vit D sufficient >100 ng/mL Potential ToxicityPerformed By: #### VITAD, FETIBC, FERR #### [facility] [address] [place] [address] Dr. Andrey WilkinsonCHOCARDINam M/2D COMPLETEon [id number] M/2D COMPLETE Patient: CLAUDIA ESTRELLA Exam Date: 06/13/2022 : 1950 Gender:F Ordering : DR KARTHIK FISH M.D. Admission #: [id number] Family : Order #: [id number] CLICK HERE TO VIEW EXAM ECHOCARDIOGRAM REPORT [...] by: Karthik Fish M.D. on 06/14/2022 at 17:50[facility] Rehabilitation HospitalBNPon 40-91-9567Qmyjttxuxth peptide B (Bld) [Mass/Vol]4197.0 pg/mL Critically high<=900.0The Memorial HospitalComment on above:Performed By: #### LIPID, TSH, FT3 #### [facility] [address] [place] [address] Dr. Andrey Kimble CHEM 8 (BAS METB)on 91-16-4219Ctauw gap [Moles/Vol]10.4 mmol/LNormalThe Becca HospitalComment on above:Performed By: #### VITAD, FETIBC, FERR #### [facility] [address] [address] [address] Andrey HargroveCalcium [Mass/Vol]9.4 mg/dLNormal8.5-10.1[facility] Comment on above:Performed By: #### VITAD, FETIBC, FERR #### [facility] [address] [address] [address] Andrey HargroveChloride [Moles/Vol]99 mmol/FKgkpvf55-311OmxKettering Health Main Campus Comment on above:Performed By: #### VITAD, FETIBC, FERR #### [facility] [address] [place] [address] Dr. Andrey HargroveCO2 [Moles/Vol]33.8 mmol/LCritically high21.0-32.0The Memorial HospitalComment on above:Performed By: #### VITAD, FETIBC, FERR #### [facility] [address] [place] [address] Dr. Andrey HargroveCreatinine [Mass/Vol]2.09 mg/dLCritically high0.55-1.02[facility] CampusComment on above:Performed By: #### VITAD, FETIBC, FERR #### [facility] [address] [place] [address] Dr. Balderas ChangEGFR-AF LDOOADAI84 mL/min/1.08k5Udxldajlae low>=60The Memorial HospitalComment on above:Performed By: #### VITAD, FETIBC, FERR #### [facility] [address] [place] [address] Dr. Andrey WilkinsonGFR-NON AF EGNLFOVV48 mL/min/1.35f0Syzngacect low>=60The Memorial HospitalComment on above:Performed By: #### VITAD, FETIBC, FERR #### [facility] [address] [place] [address] Dr. Andrey HargroveGlucose [Mass/Vol]75 mg/uFFbfqqj58-572IovKettering Health Main Campus Comment on above:Performed By: #### VITAD, FETIBC, FERR #### [facility] [address] [address] [address] Andrey HargrovePotassium [Moles/Vol]3.2 mmol/LCritically low3.5-5.1The Memorial HospitalComment on above:Performed By: #### VITAD, FETIBC, FERR #### [facility] [address] [place] [address] Dr. Andrey HargroveSodium [Moles/Vol]140 mmol/AJwojfw059-895Fqn [facility] Comment on above:Performed By: #### VITAD, FETIBC, FERR #### [facility] [address] [place] [address] Dr. Andrey HargroveUrea nitrogen [Mass/Vol]61.0 mg/dLCritically high7.0-18.0The Memorial HospitalComment on above:Performed By: #### VITAD, FETIBC, FERR #### [facility] [address] [place] [address] Dr. Andrey Mccarty nitrogen/Creatinine [Mass ratio]29.2 mg/mgNormalThe Memorial HospitalComment on above:Performed By: #### VITAD, FETIBC, FERR #### [facility] [address] [place] [address] Dr. Andrey Monge 43-12-5419Fvaxamsohit peptide B (Bld) [Mass/Vol]9365.0 pg/mLCritically high<=900.0The Memorial HospitalComment on above:Performed By: #### VITAD, FETIBC, FERR #### [facility] [address] [place] [address] Dr. Andrey HargrovePROF CHEM 8 (BAS METB)on 96-50-8670Cbsfq gap [Moles/Vol]10.7 mmol/LNormalThe Memorial HospitalComment on above:Performed By: #### VITAD, FETIBC, FERR #### [facility] [address] [place] [address] Dr. Andrey HargroveCalcium [Mass/Vol]9.1 mg/dLNormal8.5-10.1[facility] Comment on above:Performed By: #### VITAD, FETIBC, FERR #### [facility] [address] [place] [address] Dr. Andrey HargroveChloride [Moles/Vol]98 mmol/MIqkkfg41-761VhtKettering Health Main Campus Comment on above:Performed By: #### VITAD, FETIBC, FERR #### [facility] [address] [place] [address] Dr. Andrey HargroveCO2 [Moles/Vol]29.4 mmol/VUaukvj64.0-32.0[facility] Comment on above:Performed By: #### VITAD, FETIBC, FERR #### [facility] [address] [place] [address] Dr. Andrey HargroveCreatinine [Mass/Vol]2.44 mg/dLCritically high0.55-1.02[facility] CampusComment on above:Performed By: #### VITAD, FETIBC, FERR #### [facility] [address] [place] [address] Dr. Balderas ChangEGFR-AF MWPFSQFR23 mL/min/1.61k4Mzhmbjiwdk low>=60The Memorial HospitalComment on above:Performed By: #### VITAD, FETIBC, FERR #### [facility] [address] [place] [address] Dr. Andrey WilkinsonGFR-NON AF PJPBXJKM29 mL/min/1.00n3Vkfwiysokh low>=60[facility] CampusComment on above:Performed By: #### VITAD, FETIBC, FERR #### [facility] [address] [place] [address] Dr. Andrey HargroveGlucose [Mass/Vol]135 mg/dLCritically djqf10-217FhmKettering Health Main CampusComment on above:Performed By: #### VITAD, FETIBC, FERR #### [facility] [address] [place] [address] Dr. Andrey HargrovePotassium [Moles/Vol]4.1 mmol/LNormal3.5-5.1[facility] Comment on above:Performed By: #### VITAD, FETIBC, FERR #### [facility] [address] [address] [address] Andrey HargroveSodium [Moles/Vol]134 mmol/LCritically seo919-044Sic Memorial HospitalComment on above:Performed By: #### VITAD, FETIBC, FERR #### [facility] [address] [address] [address] Andrey HargroveUrea nitrogen [Mass/Vol]81.0 mg/dLCritically high7.0-18.0The Memorial HospitalComment on above:Performed By: #### VITAD, FETIBC, FERR #### [facility] [address] [address] [address] Andrey Mccarty nitrogen/Creatinine [Mass ratio]33.2 mg/mgNoUC West Chester HospitalComment on above:Performed By: #### VITAD, FETIBC, FERR #### [facility] [address] [place] [address] Dr. Andrey HargroveXR ELBOW RT MIN 3 VIEWSon 39-04-6564AK ELBOW RT MIN 3 VIEWSEXAM: XR ELBOW RT MIN 3 VIEWS HISTORY: [...] study may be helpful. Electronically authenticated by: BETYS LAZARO Date: 2022-06-01 17:24[facility] HospitalRENAL FUNCTION PANELon 89-42-2109Sdyptyw [Mass/Vol]3.4 g/dL Normal3.4-5.0The Memorial HospitalComment on above:Performed By: #### LIPID, TSH, FT3 #### [facility] [address] [address] [address] Andrey HargroveCalcium [Mass/Vol]9.1 mg/dLNormal8.5-10.1[facility] Comment on above:Performed By: #### LIPID, TSH, FT3 #### [facility] [address] [address] [address] Andrey HargroveChloride [Moles/Vol]99 mmol/CRkitpi59-216Txy [facility] Comment on above:Performed By: #### LIPID, TSH, FT3 #### [facility] [address] [address] [address] Andrey HargroveCO2 [Moles/Vol]30.9 mmol/LZtphxj07.0-32.0[facility] Comment on above:Performed By: #### LIPID, TSH, FT3 #### [facility] [address] [address] [address] Andrey HargroveCreatinine [Mass/Vol]2.24 mg/dLCritically high0.55-1.02The [facility] HospitalComment on above:Performed By: #### LIPID, TSH, FT3 #### [facility] [address] [address] [address] Andrey WilkinsonGFR-AF NYYYQTKJ63 mL/min/1.37z0Wywvctrael low>=60The [facility] HospitalComment on above:Performed By: #### LIPID, TSH, FT3 #### [facility] [address] [address] [address] Andrey WilkinsonGFR-NON AF YTWQSBEN09 mL/min/1.95c7Gguqypwwyn low>=60The [facility] HospitalComment on above:Performed By: #### LIPID, TSH, FT3 #### [facility] [address] [address] [address] Andrey HargroveGlucose [Mass/Vol]94 mg/gSDlgzsa72-743Oqj [facility] Comment on above:Performed By: #### LIPID, TSH, FT3 #### [facility] [address] [place] [address] Dr. Andrey HargrovePhosphate [Mass/Vol]4.7 mg/dLNormal2.6-4.7[facility] Comment on above:Performed By: #### LIPID, TSH, FT3 #### [facility] [address] [place] [address] Dr. Andrey HargrovePotassium [Moles/Vol]3.5 mmol/LNormal3.5-5.1[facility] Comment on above:Performed By: #### LIPID, TSH, FT3 #### [facility] [address] [place] [address] Dr. Andrey HargroveSodium [Moles/Vol]136 mmol/VPplafp434-605PcmKettering Health Main Campus Comment on above:Performed By: #### LIPID, TSH, FT3 #### [facility] [address] [place] [address] Dr. Andrey HargroveUrea nitrogen [Mass/Vol]72.0 mg/dLCritically high7.0-18.0The Memorial HospitalComment on above:Performed By: #### LIPID, TSH, FT3 #### [facility] [address] [place] [address] Dr. Andrey HargrovePTH INTACTon 11-95-5205WLA, Zzzfsa24 pg/mNGvwfta57-60Qfh Memorial HospitalComment on above:Performed By: #### LIPID, TSH, FT3 #### [facility] [address] [place] [address] Dr. Andrey HargroveFERRITINon 62-23-8991Tmisdesk [Mass/Vol]190.0 ng/mLNormal 8.0-252.0The Memorial HospitalComment on above:Performed By: #### LIPID, TSH, FT3 #### [facility] [address] [place] [address] Dr. nAdrey FitzgeraldEE T3on 23-04-0755JUGF T31.96 pg/mlLCritically low2.18-3.98The [facility] Hospitalment on above:Performed By: #### LIPID, TSH, FT3 #### [facility] [address] [place] [address] Dr. Andrey Joaquin T4on 48-97-4714Bhfd T4 [Mass/Vol]1.33 ng/dLNormal0.76-1.46 [facility] on above:Performed By: #### LIPID, TSH, FT3 #### [facility] [address] [place] [address] Dr. Andrey HargroveHEMOGRAM AND PLATELon 05-95-8546Cmqzgamwvb (Bld) [Volume fraction]30.6 %Critically low36.0-48.0[facility] on above: Performed By: #### VITAD, FETIBC, FERR #### [facility] [address] [place] [address] Dr. Andrey HargroveHemoglobin (Bld) [Mass/Vol]10.4 g/dLCritically low12.0-16.0The [facility] Hospitalment on above:Performed By: #### VITAD, FETIBC, FERR #### [facility] [address] [place] [address] Dr. Andrey Coker (RBC) [Entitic mass]28.6 hdYnhqhq87.7-34.0The [facility] Hospitalment on above:Performed By: #### VITAD, FETIBC, FERR #### [facility] [address] [place] [address] Dr. Andrey Coker (RBC) [Mass/Vol]34.0 g/zAEyelah70.9-35.2The [facility] Hospitalment on above:Performed By: #### VITAD, FETIBC, FERR #### [facility] [address] [place] [address] Dr. Andrey Coker (RBC) [Entitic vol]84.1 jCTlmmwh01.0-99.0The [facility] on above:Performed By: #### VITAD, FETIBC, FERR #### [facility] [address] [place] [address] Dr. Andrey HargrovePLT179 103/mbBhrugs143-287Sac Memorial HospitalComment on above: Performed By: #### VITAD, FETIBC, FERR #### [facility] [address] [place] [address] Dr. Andrey HargroveRBC3.64 106/ulCritically low4.20-5.40The Memorial HospitalComment on above:Performed By: #### VITAD, FETIBC, FERR #### [facility] [address] [place] [address] Dr. Andrey HargroveWBC9.5 103/ulNormal4.0-11.0The Memorial HospitalComment on above: Performed By: #### VITAD, FETIBC, FERR #### [facility] [address] [place] [address] Dr. Andrey Mason AND [facility] 05-23-2022% FHUMKKAPHC77.9 %NormalThe Memorial HospitalComment on above:Performed By: #### LIPID, TSH, FT3 #### [facility] [address] [place] [address] Dr. Andrey Mason [Mass/Vol]44.0 ug/dLCritically low50.0-170.0[facility] CampusComment on above:Performed By: #### LIPID, TSH, FT3 #### [facility] [address] [place] [address] Dr. Andrey Zhou RWCDJL407.0 ug/wAIzuedg446.0-450.0[facility] Comment on above:Performed By: #### LIPID, TSH, FT3 #### [facility] [address] [place] [address] Dr. Andrey RomoID PROFILEon 27-67-9841YFDH-HDL RATIO NORMSEE [facility] HospitalComment on above:Result Comment: 3.3 - 4.4 LOW RISK 4.4 - 7.1 AVERAGE RISK 7.1 - 11.0 MODERATE RISK >11.0 HIGH RISKPerformed By: #### LIPID, TSH, FT3 #### [facility] [address] [address] [address] Andrey HargroveCholesterol [Mass/Vol]129 mg/dLNormal<=200[facility] Comment on above:Performed By: #### LIPID, TSH, FT3 #### [facility] [address] [address] [address] Andrey HargroveCholesterol in HDL [Mass/Vol]55 mg/nRFscjxe74-58Mvj Memorial HospitalComment on above:Performed By: #### LIPID, TSH, FT3 #### [facility] [address] [address] [address] Andrey HargroveCholesterol in LDL [Mass/Vol]59.6 mg/dLSelect Medical TriHealth Rehabilitation HospitalComment on above:Performed By: #### LIPID, TSH, FT3 #### [facility] [address] [address] [address] Andrey Anguloesterlisbeth.total/Cholesterol in HDL [Mass ratio]2.3 {ratio} NormalKettering Health Main CampusComment on above:Performed By: #### LIPID, TSH, FT3 #### [facility] [address] [address] [address] Andrey Hughes NORMAL> or = 60 mg/dl - LOW CARDIOVASCULAR RISK <40 mg/dl - HIGH CARDIOVASCULAR RISKSelect Medical TriHealth Rehabilitation HospitalComment on above:Performed By: #### LIPID, TSH, FT3 #### [facility] [address] [address] [address] Andrey HargroveLDL CALC NORMALSEE BELOWSelect Medical TriHealth Rehabilitation HospitalComment on above:Result Comment: <100 mg/dl OPTIMAL 100 - 129 mg/dl NEAR OR ABOVE OPTIMAL 130 - 159 mg/dl BORDERLINE HIGH 160 - 189 mg/dl HIGH >190 mg/dl VERY HIGH Performed By: #### LIPID, TSH, FT3 #### [facility] [address] [address] [address] Andrey HargroveTriglyceride [Mass/Vol]72 mg/dLNormal<=150[facility] Comment on above:Performed By: #### LIPID, TSH, FT3 #### [facility] [address] [place] [address] Dr. Andrey HargroveVLDL CALC14.4 mg/dLNormalThe Memorial HospitalComment on above: Performed By: #### LIPID, TSH, FT3 #### [facility] [address] [place] [address] Dr. Andrey HargroveMAGNESIUMon 29-55-0225Jljgvpqwx [Mass/Vol]2.2 mg/dLNormal1.8-2.4 The Memorial HospitalComment on above:Performed By: #### LIPID, TSH, FT3 #### [facility] [address] [place] [address] Dr. Andrey HargroveRENAL FUNCTION PANELon 66-11-9324Hfihvwt [Mass/Vol]3.5 g/dLNormal 3.4-5.0The Memorial HospitalComment on above:Performed By: #### LIPID, TSH, FT3 #### [facility] [address] [place] [address] Dr. Andrey HargroveCalcium [Mass/Vol]10.0 mg/dLNormal8.5-10.1[facility] Comment on above:Performed By: #### LIPID, TSH, FT3 #### [facility] [address] [place] [address] Dr. Andrey HargroveChloride [Moles/Vol]98 mmol/MMwhqzf09-249Wpj [facility] Comment on above:Performed By: #### LIPID, TSH, FT3 #### [facility] [address] [place] [address] Dr. Andrey HargroveCO2 [Moles/Vol]34.3 mmol/LCritically high21.0-32.0The Memorial HospitalComment on above:Performed By: #### LIPID, TSH, FT3 #### [facility] [address] [place] [address] Dr. Andrey HargroveCreatinine [Mass/Vol]2.24 mg/dLCritically high0.55-1.02The Memorial HospitalComment on above:Performed By: #### LIPID, TSH, FT3 #### [facility] [address] [address] [address] Andrey WilkinsonGFR-AF RHJPFVOI97 mL/min/1.55b6Wzkrdfdszs low>=60The Memorial HospitalComment on above:Performed By: #### LIPID, TSH, FT3 #### [facility] [address] [place] [address] Dr. Andrey WilkinsonGFR-NON AF CFQECFAI55 mL/min/1.51s4Tlgyjfbivb low>=60The [facility] HospitalComment on above:Performed By: #### LIPID, TSH, FT3 #### [facility] [address] [place] [address] Dr. Andrey HargroveGlucose [Mass/Vol]123 mg/dLCritically guyp05-447Yfg Memorial HospitalComment on above:Performed By: #### LIPID, TSH, FT3 #### [facility] [address] [place] [address] Dr. Andrey HargrovePhosphate [Mass/Vol]5.2 mg/dLCritically high2.6-4.7The Memorial HospitalComment on above:Performed By: #### LIPID, TSH, FT3 #### [facility] [address] [place] [address] Dr. Andrey HargrovePotassium [Moles/Vol]3.0 mmol/LCritically low3.5-5.1The Memorial HospitalComment on above:Performed By: #### LIPID, TSH, FT3 #### [facility] [address] [place] [address] Dr. Andrey Menchacadium [Moles/Vol]137 mmol/FBuugys847-109Hfx [facility] Comment on above:Performed By: #### LIPID, TSH, FT3 #### [facility] [address] [place] [address] Dr. Andrey HargroveUrea nitrogen [Mass/Vol]80.0 mg/dLCritically high7.0-18.0The Memorial HospitalComment on above:Performed By: #### LIPID, TSH, FT3 #### [facility] [address] [place] [address] Dr. Andrey Hernandez 35-92-6901JQW9.652 uIU/mLCritically high0.358-3.740The Memorial HospitalComment on above:Performed By: #### LIPID, TSH, FT3 #### [facility] [address] [address] [address] Andrey Link RANDOM W/MICROSCOPICon 61-29-2323ZNHNMMDGCIVQ SEENNormalNONE SEENKettering Health Main CampusComment on above:Performed By: #### VITAD, FETIBC, FERR #### [facility] [address] [address] [address] Andrey Godfrey Ql (U)NegativeNormalNEGATIVEThe [facility] Comment on above:Performed By: #### VITAD, FETIBC, FERR #### [facility] [address] [place] [address] Dr. Andrey Rodriguez SEENNormalNONE SEENKettering Health Main CampusComhealthsource [place] on above:Performed By: #### VITAD, FETIBC, FERR #### [facility] [address] [place] [address] Dr. Andrey Lau (U)CLEARNormalCLEARThe Memorial HospitalComhealthsource [place] on above: Performed By: #### VITAD, FETIBC, FERR #### [facility] [address] [address] [address] Andrey Cervantes (U)LT. YELLOWNormalYELLOWThe Memorial HospitalComment on above:Performed By: #### VITAD, FETIBC, FERR #### [facility] [address] [place] [address] Dr. Andrey HargroveCrystals LM Nom (Urine sed)NONE SEENNormalNONE SEENKettering Health Main CampusComhealthsource [place] on above:Performed By: #### VITAD, FETIBC, FERR #### [facility] [address] [place] [address] Dr. Balderas ChangEpithelial cells LM Ql (Urine sed)FEWAbnormalNONE SEEN /RAREThe Memorial HospitalComment on above:Performed By: #### VITAD, FETIBC, FERR #### [facility] [address] [address] [address] Andrey HargroveGlucose Ql (U)NegativeNormalNEGATIVEKettering Health Main CampusComment on above:Performed By: #### VITAD, FETIBC, FERR #### [facility] [address] [address] [address] Andrey HargroveHemoglobin Ql (U)TRACE-INTACTAbnormalNEGATIVEKettering Health Main CampusComment on above:Performed By: #### VITAD, FETIBC, FERR #### [facility] [address] [address] [address] Andrey HargroveKetones Ql (U)NegativeNormalNEGATIVEKettering Health Main CampusComment on above:Performed By: #### VITAD, FETIBC, FERR #### [facility] [address] [place] [address] Dr. Andrey HargroveLEUKOCYTESSMALLAbnormalNEGATIVEThe Memorial HospitalComment on above:Performed By: #### VITAD, FETIBC, FERR #### [facility] [address] [place] [address] Dr. Andrey HargroveMUCOUSNONKaterin SEENNormalNONE SEENKettering Health Main CampusComhealthsource [place] on above:Performed By: #### VITAD, FETIBC, FERR #### [facility] [address] [address] [address] Andrey HargroveNitrite Ql (U)NegativeNormalNEGATIVEKettering Health Main CampusComment on above:Performed By: #### VITAD, FETIBC, FERR #### [facility] [address] [address] [address] Andrey HargrovepH (U)5.5 [pH]Normal5-9The [facility] HospitalComhealthsource [place] on above: Performed By: #### VITAD, FETIBC, FERR #### [facility] [address] [address] [address] Andrey HargroveLphzeDOD3-8Ihnfzh1-1Gvs Memorial HospitalComment on above:Performed By: #### VITAD, FETIBC, FERR #### [facility] [address] [place] [address] Dr. Andrey HargroveSPEC GRAVITY1.121Yicglf7.005-<=1.025The [facility] on above:Performed By: #### VITAD, FETIBC, FERR #### [facility] [address] [place] [address] Dr. Andrey Link PROTEINTRACENormalNEGATIVE/ TRACEThe Memorial HospitalComment on above:Performed By: #### VITAD, FETIBC, FERR #### [facility] [address] [place] [address] Dr. Andrey Maldonado Qn (U)0.2 {Kelly'U}/dLNormal0.2 - 1.0The [facility] on above:Performed By: #### VITAD, FETIBC, FERR #### [facility] [address] [place] [address] Dr. Andrey HargroveWBC0-2AbnormalNONE SEENKettering Health Main CampusComment on above: Performed By: #### VITAD, FETIBC, FERR #### [facility] [address] [place] [address] Dr. Andrey Stock ACID SERUMon 97-10-2112Emrsp [Mass/Vol]7.4 mg/dLCritically high2.6-6.0The [facility] on above:Performed By: #### LIPID, TSH, FT3 #### [facility] [address] [place] [address] Dr. Andrey Sanchez T PROTEIN CREAT RATIOon [id number] (U) [Mass/Vol] 39.9 mg/dLCritically high<=12.0The [facility] on above:Performed By: #### URTPCR #### [facility] [address] [place] [address] Dr. Andrey Fox PROT CREAT RAT0.64NormalThe Memorial HospitalComment on above: Performed By: #### URTPCR #### [facility] [address] [address] [address] Andrey Sanchez CREAT62.30 mg/fZBnzhoo48.00-300.00[facility] Comment on above:Performed By: #### URTPCR #### [facility] [address] [place] [address] Dr. Andrey HargroveVITAMIN D 25 OHon [id number] D 25-OH90.7 ng/mLNormalThe Memorial HospitalComment on above:Performed By: #### LIPID, TSH, FT3 #### [facility] [address] [place] [address] Dr. Andrey Blake RANGESSEE BELOWSelect Medical TriHealth Rehabilitation HospitalComment on above: Result Comment: <20 ng/mL Vit D deficient 20 - <30 ng/mL Vit D insufficient 30 - 100 ng/mL Vit D sufficient >100 ng/mL Potential ToxicityPerformed By: #### LIPID, TSH, FT3 #### [facility] [address] [place] [address] Dr. Andrey HargroveMAGNESIUMon 17-30-3286Lhwowyppt [Mass/Vol]2.1 mg/dLNormal1.8-2.4 The Memorial HospitalComment on above:Performed By: #### LIPID, TSH, FT3 #### [facility] [address] [place] [address] Dr. Andrey HargrovePROF CHEM 8 (BAS METB)on 49-61-5021Fpisr gap [Moles/Vol]12.0 mmol/LNormalKettering Health Main CampusComment on above:Performed By: #### LIPID, TSH, FT3 #### [facility] [address] [place] [address] Dr. Andrey HargroveCalcium [Mass/Vol]9.0 mg/dLNormal8.5-10.1[facility] Comment on above:Performed By: #### LIPID, TSH, FT3 #### [facility] [address] [place] [address] Dr. Andrey HargroveChloride [Moles/Vol]97 mmol/LCritically fgy66-315Prt Memorial HospitalComment on above:Performed By: #### LIPID, TSH, FT3 #### [facility] [address] [address] [address] Andrey HargroveCO2 [Moles/Vol]30.4 mmol/BAqkyvk47.0-32.0[facility] Comment on above:Performed By: #### LIPID, TSH, FT3 #### [facility] [address] [address] [address] Andrey HargroveCreatinine [Mass/Vol]2.28 mg/dLCritically high0.55-1.02The Memorial HospitalComment on above:Performed By: #### LIPID, TSH, FT3 #### [facility] [address] [place] [address] Dr. Andrey WilkinsonGFR-AF TWZZMLLC85 mL/min/1.19i5Omsdirxmaa low>=60The Memorial HospitalComment on above:Performed By: #### LIPID, TSH, FT3 #### [facility] [address] [place] [address] Dr. Andrey WilkinsonGFR-NON AF IKLGMORJ81 mL/min/1.97g6Aftqactzpf low>=60The Memorial HospitalComment on above:Performed By: #### LIPID, TSH, FT3 #### [facility] [address] [place] [address] Dr. Andrey HargroveGlucose [Mass/Vol]190 mg/dLCritically lsqy04-429Ozb Memorial HospitalComment on above:Performed By: #### LIPID, TSH, FT3 #### [facility] [address] [place] [address] Dr. Andrey HargrovePotassium [Moles/Vol]3.4 mmol/LCritically low3.5-5.1The Memorial HospitalComment on above:Performed By: #### LIPID, TSH, FT3 #### [facility] [address] [place] [address] Dr. Andrey HargroveSodium [Moles/Vol]136 mmol/RNrunag018-164Lip [facility] Comment on above:Performed By: #### LIPID, TSH, FT3 #### [facility] [address] [address] [address] Andrey HargroveUrea nitrogen [Mass/Vol]73.0 mg/dLCritically high7.0-18.0The [facility] on above:Performed By: #### LIPID, TSH, FT3 #### [facility] [address] [address] [address] Andrey Mccarty nitrogen/Creatinine [Mass ratio]32.0 mg/mgNoUC [facility] HospitalComhealthsource [place] on above:Performed By: #### LIPID, TSH, FT3 #### [facility] [address] [address] [address] Andrey HargroveXR CHEST 2 Von [id number] CHEST 2 VEXAMINATION: XR CHEST 2 V HISTORY: Chronic diastolic [...] Electronically authenticated by: RENETTA RENEE Date: 2022-05-12 09:12[facility] Rehabilitation HospitalBNPon [id number] peptide B (Bld) [Mass/Vol]7074.0 pg/mLCritically high<=900.0The [facility] on above:Performed By: #### VITAD, FETIBC, FERR #### [facility] [address] [place] [address] Dr. Andrey Jimenez AUTO DIFFon 77-00-1345HSFU #0.1 103/ulNormal0.0-0.1The [facility] on above:Performed By: #### VITAD, FETIBC, FERR #### [facility] [address] [place] [address] Dr. Andrey HargroveBasophils/100 WBC (Bld)0.7 %Normal0.2-2.0[facility] Comment on above:Performed By: #### VITAD, FETIBC, FERR #### [facility] [address] [place] [address] Dr. Andrey Copeland #0.3 103/ulNormal0.0-0.7The Memorial HospitalComment on above: Performed By: #### VITAD, FETIBC, FERR #### [facility] [address] [place] [address] Dr. Andrey Wilkinsonosinophils/100 WBC (Bld)3.8 %Normal0.9-7.0[facility] Comment on above:Performed By: #### VITAD, FETIBC, FERR #### [facility] [address] [place] [address] Dr. Andrey Wilkinsonrythrocyte distribution width (RBC) [Ratio]14.7 %Zcnxqx55.0-15.0 The Memorial HospitalComment on above:Performed By: #### VITAD, FETIBC, FERR #### [facility] [address] [place] [address] Dr. Andrey HargroveHematocrit (Bld) [Volume fraction]29.6 %Critically low36.0-48.0 The Memorial HospitalComment on above:Performed By: #### VITAD, FETIBC, FERR #### [facility] [address] [place] [address] Dr. Andrey HargroveHemoglobin (Bld) [Mass/Vol]9.9 g/dLCritically low12.0-16.0The Memorial HospitalComment on above:Performed By: #### VITAD, FETIBC, FERR #### [facility] [address] [place] [address] Dr. Andrey Willard #0.03 10e3/ulNormal0.00-0.03The Memorial HospitalComment on above:Performed By: #### VITAD, FETIBC, FERR #### [facility] [address] [place] [address] Dr. Andrey Willard %0.4 %Normal0.0-0.5The Memorial HospitalComment on above: Performed By: #### VITAD, FETIBC, FERR #### [facility] [address] [place] [address] Dr. Andrey Jarrett #1.3 103/ulNormal1.2-3.8The Memorial HospitalComment on above:Performed By: #### VITAD, FETIBC, FERR #### [facility] [address] [place] [address] Dr. Andrey Derashocytes/100 WBC (Bld)16.3 %Critically low20.5-60.0The Memorial HospitalComment on above:Performed By: #### VITAD, FETIBC, FERR #### [facility] [address] [place] [address] Dr. Andrey Ferrell DIFF REQNONormalThe Memorial HospitalComment on above: Performed By: #### VITAD, FETIBC, FERR #### [facility] [address] [place] [address] Dr. Andrey Coker (RBC) [Entitic mass]28.7 chFykyuv56.7-34.0The Memorial HospitalComment on above:Performed By: #### VITAD, FETIBC, FERR #### [facility] [address] [place] [address] Dr. Andrey Coker (RBC) [Mass/Vol]33.4 g/tWAmpyac62.9-35.2The Memorial HospitalComment on above:Performed By: #### VITAD, FETIBC, FERR #### [facility] [address] [place] [address] Dr. Andrey Coker (RBC) [Entitic vol]85.8 aZRegeki31.0-99.0The Memorial HospitalComment on above:Performed By: #### VITAD, FETIBC, FERR #### [facility] [address] [place] [address] Dr. Andrey Magaña #0.7 103/ulNormal0.3-0.8The Memorial HospitalComment on above:Performed By: #### VITAD, FETIBC, FERR #### [facility] [address] [address] [address] Andrey Hamiltonocytes/100 WBC (Bld)8.7 %Normal1.7-12.0[facility] Comment on above:Performed By: #### VITAD, FETIBC, FERR #### [facility] [address] [place] [address] Dr. Andrey Hay #5.4 103/ulNormal1.4-6.5The Memorial HospitalComment on above:Performed By: #### VITAD, FETIBC, FERR #### [facility] [address] [place] [address] Dr. Andrey Grajedautrophils/100 WBC (Bld)70.1 %Ihzsnv85.0-75.0The [facility] above:Performed By: #### VITAD, FETIBC, FERR #### [facility] [address] [place] [address] Dr. Andrey HargrovePlatelet mean volume (Bld) [Entitic vol]10.9 fLNormal9.5-13.5The [facility] Hospitalment on above:Performed By: #### VITAD, FETIBC, FERR #### [facility] [address] [place] [address] Dr. Andrey HargrovePLT171 103/wsDjopsl970-865Spt Memorial HospitalComment on above: Performed By: #### VITAD, FETIBC, FERR #### [facility] [address] [place] [address] Dr. Andrey HargroveRBC3.45 106/ulCritically low4.20-5.40The [facility]ment on above:Performed By: #### VITAD, FETIBC, FERR #### [facility] [address] [place] [address] Dr. Andrey HargroveWBC7.7 103/ulNormal4.0-11.0The Memorial HospitalComment on above: Performed By: #### VITAD, FETIBC, FERR #### [facility] [address] [place] [address] Dr. Andrey ChinF CHEM 8 (BAS METB)on 95-24-0784Ppqgt gap [Moles/Vol]9.8 mmol/LNormalThe Memorial HospitalComment on above:Performed By: #### VITAD, FETIBC, FERR #### [facility] [address] [place] [address] Dr. Andrey HargroveCalcium [Mass/Vol]9.1 mg/dLNormal8.5-10.1[facility] Comment on above:Performed By: #### VITAD, FETIBC, FERR #### [facility] [address] [place] [address] Dr. Andrey HargroveChloride [Moles/Vol]96 mmol/LCritically vmy33-668Srb Memorial HospitalComment on above:Performed By: #### VITAD, FETIBC, FERR #### [facility] [address] [place] [address] Dr. Andrey HargroveCO2 [Moles/Vol]30.8 mmol/OVdgqrj56.0-32.0[facility] Comment on above:Performed By: #### VITAD, FETIBC, FERR #### [facility] [address] [place] [address] Dr. Andrey HargroveCreatinine [Mass/Vol]2.28 mg/dLCritically high0.55-1.02The [facility] HospitalComment on above:Performed By: #### VITAD, FETIBC, FERR #### [facility] [address] [place] [address] Dr. Balderas ChangEGFR-AF BBZMHPJW73 mL/min/1.61z7Msgmhpqtqj low>=60The [facility] HospitalComment on above:Performed By: #### VITAD, FETIBC, FERR #### [facility] [address] [place] [address] Dr. Andrey WilkinsonGFR-NON AF NMPPQGVT15 mL/min/1.27j0Uashdcvqht low>=60The [facility] HospitalComment on above:Performed By: #### VITAD, FETIBC, FERR #### [facility] [address] [address] [address] Andrey HargroveGlucose [Mass/Vol]158 mg/dLCritically tepx98-658Tkk Memorial HospitalComment on above:Performed By: #### VITAD, FETIBC, FERR #### [facility] [address] [address] [address] Andrey HargrovePotassium [Moles/Vol]3.6 mmol/LNormal3.5-5.1[facility] Comment on above:Performed By: #### VITAD, FETIBC, FERR #### [facility] [address] [address] [address] Andrey HargroveSodium [Moles/Vol]133 mmol/LCritically txc733-018Gwm [facility] Hospitalment on above:Performed By: #### VITAD, FETIBC, FERR #### [facility] [address] [place] [address] Dr. Andrey HargroveUrea nitrogen [Mass/Vol]66.0 mg/dLCritically high7.0-18.0The [facility] on above:Performed By: #### VITAD, FETIBC, FERR #### [facility] [address] [place] [address] Dr. Andrey Mccarty nitrogen/Creatinine [Mass ratio]28.9 mg/mgNormalThe Memorial HospitalComment on above:Performed By: #### VITAD, FETIBC, FERR #### [facility] [address] [place] [address] Dr. nAdrey HargroveMAGNESIUMon 66-17-2552Xgqkhleqx [Mass/Vol]1.9 mg/dLNormal1.8-2.4 The [facility] HospitalComment on above:Performed By: #### VITAD, FETIBC, FERR #### [facility] [address] [place] [address] Dr. Andrey HargrovePROF CHEM 8 (BAS METB)on 99-51-8340Ivlpa gap [Moles/Vol]11.7 mmol/LNormalThe [facility] HospitalComment on above:Performed By: #### VITAD, FETIBC, FERR #### [facility] [address] [address] [address] Andrey HargroveCalcium [Mass/Vol]9.4 mg/dLNormal8.5-10.1[facility] Comment on above:Performed By: #### VITAD, FETIBC, FERR #### [facility] [address] [place] [address] Dr. Andrey HargroveChloride [Moles/Vol]97 mmol/LCritically deh05-733Jid Memorial HospitalComment on above:Performed By: #### VITAD, FETIBC, FERR #### [facility] [address] [place] [address] Dr. Andrey HargroveCO2 [Moles/Vol]29.0 mmol/DZytnsa49.0-32.0[facility] Comment on above:Performed By: #### VITAD, FETIBC, FERR #### [facility] [address] [place] [address] Dr. Andrey HargroveCreatinine [Mass/Vol]2.02 mg/dLCritically high0.55-1.02[facility] Hospitalment on above:Performed By: #### VITAD, FETIBC, FERR #### [facility] [address] [place] [address] Dr. Balderas ChangEGFR-AF OSBNBIDL25 mL/min/1.81p5Fcgitbazco low>=60The [facility]ment on above:Performed By: #### VITAD, FETIBC, FERR #### [facility] [address] [place] [address] Dr. Baldreas ChangEGFR-NON AF AFQVTVWJ88 mL/min/1.25u4Zecemcwypp low>=60The [facility] on above:Performed By: #### VITAD, FETIBC, FERR #### [facility] [address] [place] [address] Dr. Andrey HargroveGlucose [Mass/Vol]204 mg/dLCritically gaef28-868Epa [facility] HospitalComment on above:Performed By: #### VITAD, FETIBC, FERR #### [facility] [address] [address] [address] Andrey HargrovePotassium [Moles/Vol]3.7 mmol/LNormal3.5-5.1[facility] Comment on above:Performed By: #### VITAD, FETIBC, FERR #### [facility] [address] [address] [address] Andrey HargroveSodium [Moles/Vol]134 mmol/LCritically hhh260-666Kox [facility] HospitalComment on above:Performed By: #### VITAD, FETIBC, FERR #### [facility] [address] [place] [address] Dr. Andrey HargroveUrea nitrogen [Mass/Vol]60.0 mg/dLCritically high7.0-18.0The [facility] HospitalComment on above:Performed By: #### VITAD, FETIBC, FERR #### [facility] [address] [place] [address] Dr. Andrey Mccarty nitrogen/Creatinine [Mass ratio]29.7 mg/mgNormalThe Memorial HospitalComment on above:Performed By: #### VITAD, FETIBC, FERR #### [facility] [address] [place] [address] Dr. Andrey HargrovePTH INTACTon 80-62-2610SBG, Auvxxb53 pg/fGKlivyb90-58Oei [facility] HospitalComment on above:Performed By: #### LIPID, TSH, FT3 #### [facility] [address] [place] [address] Dr. Andrey HargroveFERRITINon 79-17-7598Trdrzgmd [Mass/Vol]133.0 ng/mLNormal 8.0-252.0The [facility] HospitalComment on above:Performed By: #### VITAD, FETIBC, FERR #### [facility] [address] [place] [address] Dr. Andrey HargroveHEMOGRAM AND PLATELon 77-62-0186Fohcgyuquu (Bld) [Volume fraction]31.7 %Critically low36.0-48.0The [facility] HospitalComment on above: Performed By: #### VITAD, FETIBC, FERR #### [facility] [address] [place] [address] Dr. Andrey HargroveHemoglobin (Bld) [Mass/Vol]10.2 g/dLCritically low12.0-16.0The [facility] HospitalComment on above:Performed By: #### VITAD, FETIBC, FERR #### [facility] [address] [place] [address] Dr. Andrey Coker (RBC) [Entitic mass]28.3 lgFllqra97.7-34.0The [facility] on above:Performed By: #### VITAD, FETIBC, FERR #### [facility] [address] [place] [address] Dr. Andrey HargroveNY[facility] (RBC) [Mass/Vol]32.2 g/sEQlkzit19.9-35.2The [facility] Hospitalment on above:Performed By: #### VITAD, FETIBC, FERR #### [facility] [address] [place] [address] Dr. Andrey Coker (RBC) [Entitic vol]88.1 pCRmibes72.0-99.0The [facility] on above:Performed By: #### VITAD, FETIBC, FERR #### [facility] [address] [place] [address] Dr. Andrey HargrovePLT198 103/wrJcklwd542-086Cac [facility] Hospitalment on above: Performed By: #### VITAD, FETIBC, FERR #### [facility] [address] [place] [address] Dr. Andrey HargroveRBC3.60 106/ulCritically low4.20-5.40The [facility]ment on above:Performed By: #### VITAD, FETIBC, FERR #### [facility] [address] [place] [address] Dr. Andrey HargroveWBC8.5 103/ulNormal4.0-11.0The Memorial HospitalComment on above: Performed By: #### VITAD, FETIBC, FERR #### [facility] [address] [place] [address] Dr. Andrey Mason AND TIBCon 01-17-2022% YOUBRSMFCQ94.8 %NormalThe Memorial HospitalComment on above:Performed By: #### VITAD, FETIBC, FERR #### [facility] [address] [place] [address] Dr. Andrey Mason [Mass/Vol]47.0 ug/dLCritically low50.0-170.0The Memorial HospitalComment on above:Performed By: #### VITAD, FETIBC, FERR #### [facility] [address] [place] [address] Dr. Andrey HargroveTIBElissa SRAKEU643.0 ug/lPPxakjd854.0-450.0[facility] Comment on above:Performed By: #### VITAD, FETIBC, FERR #### [facility] [address] [place] [address] Dr. Andrey HargroveMAGNESIUMon 15-63-1697Rseddejcp [Mass/Vol]2.0 mg/dLNormal1.8-2.4 The [facility] HospitalComment on above:Performed By: #### VITAD, FETIBC, FERR #### [facility] [address] [place] [address] Dr. Andrey HargroveRENAL FUNCTION PANELon 22-57-6413Vvczayj [Mass/Vol]3.3 g/dL Critically low3.4-5.0The Memorial HospitalComment on above:Performed By: #### VITAD, FETIBC, FERR #### [facility] [address] [place] [address] Dr. Andrey HargroveCalcium [Mass/Vol]9.1 mg/dLNormal8.5-10.1[facility] Comment on above:Performed By: #### VITAD, FETIBC, FERR #### [facility] [address] [place] [address] Dr. Andrey HargroveChloride [Moles/Vol]104 mmol/GNexeyi02-350QmcKettering Health Main Campus Comment on above:Performed By: #### VITAD, FETIBC, FERR #### [facility] [address] [address] [address] Andrey HargroveCO2 [Moles/Vol]27.6 mmol/DMppmqy28.0-32.0[facility] Comment on above:Performed By: #### VITAD, FETIBC, FERR #### [facility] [address] [place] [address] Dr. Andrey HargroveCreatinine [Mass/Vol]1.71 mg/dLCritically high0.55-1.02The [facility] HospitalComment on above:Performed By: #### VITAD, FETIBC, FERR #### [facility] [address] [place] [address] Dr. Balderas ChangEGFR-AF CULCAHKL53 mL/min/1.21u7Djadcqqvvc low>=60The [facility] HospitalComment on above:Performed By: #### VITAD, FETIBC, FERR #### [facility] [address] [place] [address] Dr. Andrey WilkinsonGFR-NON AF SOVRTTEA13 mL/min/1.05s2Gozpkdwgqf low>=60The [facility] HospitalComment on above:Performed By: #### VITAD, FETIBC, FERR #### [facility] [address] [place] [address] Dr. Andrey HargroveGlucose [Mass/Vol]115 mg/dLCritically bsus06-267Vnq Memorial HospitalComment on above:Performed By: #### VITAD, FETIBC, FERR #### [facility] [address] [place] [address] Dr. Andrey HargrovePhosphate [Mass/Vol]4.3 mg/dLNormal2.6-4.7[facility] Comment on above:Performed By: #### VITAD, FETIBC, FERR #### [facility] [address] [place] [address] Dr. Andrey HargrovePotassium [Moles/Vol]3.9 mmol/LNormal3.5-5.1[facility] Comment on above:Performed By: #### VITAD, FETIBC, FERR #### [facility] [address] [address] [address] Andrey Toneyum [Moles/Vol]139 mmol/CIbufke580-312UtaKettering Health Main Campus Comment on above:Performed By: #### VITAD, FETIBC, FERR #### [facility] [address] [place] [address] Dr. Andrey Mccarty nitrogen [Mass/Vol]38.0 mg/dLCritically high7.0-18.0[facility] CampusComment on above:Performed By: #### VITAD, FETIBC, FERR #### [facility] [address] [place] [address] Dr. Andrey Link RANDOM W/MICROSCOPICon 67-43-5156DQANNSWEGCFQ SEENNormalNONE SEENKettering Health Main CampusComment on above:Performed By: #### LIPID, TSH, FT3 #### [facility] [address] [place] [address] Dr. Andrey Godfrey Ql (U)NegativeNormalNEGATIVEKettering Health Main Campus Comment on above:Performed By: #### LIPID, TSH, FT3 #### [facility] [address] [place] [address] Dr. Andrey RiveraENAbnormalNONE SEENKettering Health Main CampusComment on above: Performed By: #### LIPID, TSH, FT3 #### [facility] [address] [place] [address] Dr. Andrey Lau (U)CLEARNormalCLEARKettering Health Main CampusComment on above: Performed By: #### LIPID, TSH, FT3 #### [facility] [address] [place] [address] Dr. Andrey Cervantes (U)LT. YELLOWNormalYELLOWKettering Health Main CampusComment on above:Performed By: #### LIPID, TSH, FT3 #### [facility] [address] [place] [address] Dr. Yilan ChangCrystals LM Nom (Urine sed)NONE SEENNormalNONE SEENKettering Health Main CampusComment on above:Performed By: #### LIPID, TSH, FT3 #### [facility] [address] [address] [address] Andrey Castlethelial cells LM Ql (Urine sed)FEWAbnormalNONE SEEN /RAREKettering Health Main CampusComment on above:Performed By: #### LIPID, TSH, FT3 #### [facility] [address] [address] [address] Andrey HargroveGlucose Ql (U)NegativeNormalNEGATIVEKettering Health Main CampusComment on above:Performed By: #### LIPID, TSH, FT3 #### [facility] [address] [address] [address] Andrey HargroveHemoglobin Ql (U)NegativeNormalNEGSelect Medical Specialty [facility] [place] on above:Performed By: #### LIPID, TSH, FT3 #### [facility] [address] [address] [address] Andrey HargroveHYALINE CASTRARENormalKettering Health Main CampusComhealthsource [place] on above: Performed By: #### LIPID, TSH, FT3 #### [facility] [address] [address] [address] Andrey HargroveKetones Ql (U)NegativeNormalNEGATIVEKettering Health Main CampusComhealthsource [place] on above:Performed By: #### LIPID, TSH, FT3 #### [facility] [address] [address] [address] Andrey HargroveLEUKOCYTESTRACEAbnormalNEGATIVECleveland Clinic Fairview Hospitalment on above:Performed By: #### LIPID, TSH, FT3 #### [facility] [address] [address] [address] Andrey HargroveMUCOUSNONE SEENNormalNONE SEENKettering Health Main CampusComment on above:Performed By: #### LIPID, TSH, FT3 #### [facility] [address] [address] [address] Andrey Schneidertrite Ql (U)NegativeNormalNEGATIVEThe [facility]cca HospitalComment on above:Performed By: #### LIPID, TSH, FT3 #### [facility] [address] [address] [address] Andrey Ramírez (U)5.0 [pH]Normal5-9The Memorial HospitalComment on above: Performed By: #### LIPID, TSH, FT3 #### [facility] [address] [address] [address] Andrey FuMxanpGKL4-6Ayvaxm6-2Hxx Memorial HospitalComment on above:Performed By: #### LIPID, TSH, FT3 #### [facility] [address] [place] [address] Dr. Andrey HargroveSPEC GRAVITY1.816Sxoqjc4.005-<=1.025The [facility] on above:Performed By: #### LIPID, TSH, FT3 #### [facility] [address] [place] [address] Dr. Andrey HargroveUA PROTEINNegativeNormalNEGATIVE/ TRACEThe [facility] Comment on above:Performed By: #### LIPID, TSH, FT3 #### [facility] [address] [place], [place] [address] Dr. Andrey Maldonado Qn (U)0.2 {Kelly'U}/dLNormal0.2 - 1.0[facility] on above:Performed By: #### LIPID, TSH, FT3 #### [facility] [address] [place] [address] Dr. Andrey HargroveWBC2-5AbnormalNONE SEENThe Memorial HospitalComment on above: Performed By: #### LIPID, TSH, FT3 #### [facility] [address] [place] [address] Dr. Andrey HargroveURIC ACID SERUMon 65-86-6843Ehyzh [Mass/Vol]5.4 mg/dLNormal 2.6-6.0The Memorial HospitalComment on above:Performed By: #### VITAD, FETIBC, FERR #### [facility] [address] [place] [address] Dr. Andrey Sanchez T PROTEIN CREAT RATIOon 93-04-5577Djhtekm (U) [Mass/Vol] 15.3 mg/dLCritically high<=12.0The Memorial HospitalComment on above:Performed By: #### VITAD, FETIBC, FERR #### [facility] [address] [place] [address] Dr. Andrey Fox PROT CREAT RAT0.36NoUC [facility] HospitalComment on above: Performed By: #### VITAD, FETIBC, FERR #### [facility] [address] [place] [address] Dr. Andrey Sanchez CREAT42.16 mg/hNNjweaa68.00-300.00[facility] Comment on above:Performed By: #### VITAD, FETIBC, FERR #### [facility] [address] [place] [address] Dr. Andrey HargroveVITAMIN D 25 OHon 79-15-5620IGY D 25-OH73.8 ng/mLNormalThe Memorial HospitalComment on above:Performed By: #### VITAD, FETIBC, FERR #### [facility] [address] [place] [address] Dr. Andrey GREYSEE BELOWNoUC West Chester HospitalComment on above: Result Comment: <20 ng/mL Vit D deficient 20 - <30 ng/mL Vit D insufficient 30 - 100 ng/mL Vit D sufficient >100 ng/mL Potential ToxicityPerformed By: #### VITAD, FETIBC, FERR #### [facility] [address] [place] [address] Dr. Andrey HargrovePROF CHEM 8 (BAS METB)on 61-41-5799Vuuaj gap [Moles/Vol]13.3 mmol/LNormalKettering Health Main CampusComment on above:Performed By: #### VITAD, FETIBC, FERR #### [facility] [address] [place] [address] Dr. Andrey HargroveCalcium [Mass/Vol]9.5 mg/dLNormal8.5-10.1[facility] Comment on above:Performed By: #### VITAD, FETIBC, FERR #### [facility] [address] [address] [address] Andrey HargroveChloride [Moles/Vol]98 mmol/OHldikq51-981KnaKettering Health Main Campus Comment on above:Performed By: #### VITAD, FETIBC, FERR #### [facility] [address] [address] [address] Andrey HargroveCO2 [Moles/Vol]25.7 mmol/PCkvnkj65.0-32.0[facility] Comment on above:Performed By: #### VITAD, FETIBC, FERR #### [facility] [address] [place] [address] Dr. Andrey HargroveCreatinine [Mass/Vol]2.92 mg/dLCritically high0.55-1.02The Memorial HospitalComment on above:Performed By: #### VITAD, FETIBC, FERR #### [facility] [address] [place] [address] Dr. Andrey WilkinsonGFR-AF YWIOTJJB44 mL/min/1.40a6Yzaqxzvpoe low>=60[facility] CampusComment on above:Performed By: #### VITAD, FETIBC, FERR #### [facility] [address] [place] [address] Dr. Andrey WilkinsonGFR-NON AF AMULYZKV52 mL/min/1.83y3Ooutnnvxhg low>=60The Memorial HospitalComment on above:Performed By: #### VITAD, FETIBC, FERR #### [facility] [address] [place] [address] Dr. Andrey HargroveGlucose [Mass/Vol]156 mg/dLCritically wvxt28-750Ncf Memorial HospitalComment on above:Performed By: #### VITAD, FETIBC, FERR #### [facility] [address] [place] [address] Dr. Andrey HargrovePotassium [Moles/Vol]5.0 mmol/LNormal3.5-5.1[facility] Comment on above:Performed By: #### VITAD, FETIBC, FERR #### [facility] [address] [address] [address] Andrey HargroveSodium [Moles/Vol]132 mmol/LCritically wqw223-012Uyg Memorial HospitalComment on above:Performed By: #### VITAD, FETIBC, FERR #### [facility] [address] [place], [place] [address] Dr. Andrey HargroveUrea nitrogen [Mass/Vol]77.0 mg/dLCritically high7.0-18.0The Memorial HospitalComment on above:Result Comment: CALLED TO FRANCIS JUNG RMA Performed By: #### VITAD, FETIBC, FERR #### [facility] [address] [address] [address] Andrey Mccarty nitrogen/Creatinine [Mass ratio]26.4 mg/mgNormalThe Memorial HospitalComment on above:Performed By: #### VITAD, FETIBC, FERR #### [facility] [address] [address] [address] Andrey HargroveCardiovascular Lab Reporton 33-40-8494Eczxxsvqbkwrbg Lab Report [facility] Patient Name: [facility] MR #: [id number] Physician: Karthik Calvo of [facility] Date: 12/09/2021 Division of Birthdate: 1950 Cardiology Room #: Adult Cardiovascular Services [place] [address] Cardiovascular Laboratory Report INDICATION: The patient is [...] signed informed consent. 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 The right neck area was prepped and draped in usual fashion. Micropuncture technique and ultrasound guidance were used for access in the right internal jugular vein. A 5-Vietnamese x 11 cm sheath was placed. A 5-Vietnamese Dumont catheter was used for right heart [...] Fish M.D. Date Trans: 12/09/2021 11:37 P/joey DN_JN:[id number] cc: John Perdomo D.O. [address] [place], [place] [address]katerin [address] [place] [address]Rnhq[address] [place] [address] COMPLETE BLOOD COUNTon 15-07-3120Yohlrmosbjx distribution width (RBC) [Ratio]13.6 %Normal 11.5-15.0The [facility] HospitalComment on above:Performed By: #### [id number] #### [facility] [address] [facility] [place] [place] [address], [facility] MEDICAL CENTERHematocrit (Bld) [Volume fraction]35.6 %Low36.0-45.0The [facility] HospitalComment on above:Performed By: #### [id number] #### [facility] [address] [facility] [place] [place] [address], [facility] MEDICAL CENTERHemoglobin (Bld) [Mass/Vol]11.8 g/dLLow12.0-15.0The [facility] HospitalComment on above:Performed By: #### [id number] #### [facility] [address] [facility]. [place] [id number], [facility] MEDICAL CENTERMCH (RBC) [Entitic mass]28.6 mdVwbdmg24.0-33.0The [facility] HospitalComment on above:Performed By: #### [id number] #### [facility] [address] [facility] [place] [place] [address], [facility] MEDICAL CENTERMCHC (RBC) [Mass/Vol]33.1 g/uIBwcqed26.0-35.0The [facility] HospitalComment on above:Performed By: #### [id number] #### [facility] [address] [facility] [place] [place] [address], [facility] MED[facility] CENTERMCV (RBC) [Entitic vol]86.2 dTDkujby42.0-98.0The [facility] HospitalComment on above:Performed By: #### 65534 #### [facility] [address] [facility] [place] [address], USANucleated RBC/100 WBC (Bld) [Ratio]0 %Normal0-0The [facility] HospitalComment on above:Performed By: #### 99734 #### [facility] [address] [facility] [place] [address], [place] KII996 10*3/jSDwaavz891-361Zrf [facility] HospitalComment on above:Performed By: #### 34469 #### [facility] [address] [place] [address], USARBC (Bld) [#/Vol]4.13 10*6/uLNormal3.80-5.00The [facility] HospitalComment on above:Performed By: #### 72287 #### [facility] [address] [facility] [place] [address], USAWBC (Bld) [#/Vol]14.13 10*3/uLHigh4.00-10.60The [facility] HospitalComment on above:Performed By: #### 97485 #### [facility] [address] [facility] [place] [address], USACovid-19 PCR ([facility])on 43-45-3956TLHK-CoV-2 (COVID-19) RNA JAYASHREE+probe Ql (Unsp spec)Not detectedNormalNOT DETECTEDThe [facility] Comment on above:Result Comment: This test is not yet approved or cleared by the [place] FDA. When there are no FDA-approved or cleared tests available, and other criteria are met, FDA can make tests available under an emergency access mechanism called an Emergency Use Authorization (EUA). The EUA for this test is supported by the [place] of Health and Human Service's (HHS's) declaration that circumstances exist to justify the emergency use of in vitro diagnostics for the detection and/or diagnosis of the virus that causes COVID- 19. This EUA will remain in effect (meaning [...] of clinical signs and symptoms consistent with SARS-CoV-2.Performed By: #### VITAD, FETIBC, FERR #### [facility] [address] [address] [address] Andrey ZelayaCARDIO M/2D COMPLETEon 00-27-5618YKGUSGTBVE M/2D COMPLETE Patient: CLAUDIA ESTRELLA Exam Date: 12/06/2021 : 1950 Gender:F Ordering : KWAN JerrySwati ROSALES Admission #: [id number] Family : DR JOHN PERDOMO D.OSwati Order #: [id number] CLICK HERE TO VIEW EXAM ECHOCARDIOGRAM REPORT [...] Area(A4C): 14.80 cm2 Left Atrium Systolic Volume(A2C): 16387 mm3 Left Atrium Systolic Volume(A4C): 47404 mm3 Mitral Valve MV E to A [...] by: Karthik Fish M.D. on 12/06/2021 at 17:31[facility] HospitalBNPon 36-03-0503Unessrxmvnu peptide B (Bld) [Mass/Vol]5127.0 pg/mL Critically high<=900.0The Memorial HospitalComment on above:Performed By: #### VITAD, FETIBC, FERR #### [facility] [address] [place] [address] Dr. Andrey Kimble CHEM 8 (BAS METB)on 01-34-3002Xdxzq gap [Moles/Vol]13.9 mmol/LNormalKettering Health Main CampusComment on above:Performed By: #### VITAD, FETIBC, FERR #### [facility] [address] [place] [address] Dr. Andrey HargroveCalcium [Mass/Vol]9.4 mg/dLNormal8.5-10.1[facility] Comment on above:Performed By: #### VITAD, FETIBC, FERR #### [facility] [address] [place] [address] Dr. Andrey HargroveChloride [Moles/Vol]99 mmol/FIixpta25-108Nfy [facility] Comment on above:Performed By: #### VITAD, FETIBC, FERR #### [facility] [address] [place] [address] Dr. Andrey HargroveCO2 [Moles/Vol]28.4 mmol/EYsodyt22.0-32.0[facility] Comment on above:Performed By: #### VITAD, FETIBC, FERR #### [facility] [address] [place] [address] Dr. Andrey HargroveCreatinine [Mass/Vol]2.11 mg/dLCritically high0.55-1.02The Memorial HospitalComment on above:Performed By: #### VITAD, FETIBC, FERR #### [facility] [address] [place] [address] Dr. Andrey WilkinsonGFR-AF SNCNULDG36 mL/min/1.71r7Vyevlkyyrl low>=60The Memorial HospitalComment on above:Performed By: #### VITAD, FETIBC, FERR #### [facility] [address] [place] [address] Dr. Andrey WilkinsonGFR-NON AF RZFOPFSM47 mL/min/1.89x0Fgmlulvocr low>=60The Memorial HospitalComment on above:Performed By: #### VITAD, FETIBC, FERR #### [facility] [address] [place] [address] Dr. Andrey HargroveGlucose [Mass/Vol]179 mg/dLCritically qyql50-907Hge Memorial HospitalComment on above:Performed By: #### VITAD, FETIBC, FERR #### [facility] [address] [address] [address] Andrey HargrovePotassium [Moles/Vol]4.3 mmol/LNormal3.5-5.1[facility] Comment on above:Performed By: #### VITAD, FETIBC, FERR #### [facility] [address] [address] [address] Andrey HargroveSodium [Moles/Vol]137 mmol/DVvnewh406-039Gbr [facility] Comment on above:Performed By: #### VITAD, FETIBC, FERR #### [facility] [address] [place] [address] Dr. Andrey HargroveUrea nitrogen [Mass/Vol]62.0 mg/dLCritically high7.0-18.0The Memorial HospitalComment on above:Performed By: #### VITAD, FETIBC, FERR #### [facility] [address] [place] [address] Dr. Andrey HargroveUrea nitrogen/Creatinine [Mass ratio]29.4 mg/mgNormalThe Memorial HospitalComment on above:Performed By: #### VITAD, FETIBC, FERR #### [facility] [address] [place] [address] Dr. Andrey Monge 33-13-4186Ewneaovotih peptide B (Bld) [Mass/Vol]4773.0 pg/mLCritically high<=900.0The Memorial HospitalComment on above:Performed By: #### VITAD, FETIBC, FERR #### [facility] [address] [place] [address] Dr. Andrey Kimble CHEM 8 (BAS METB)on 69-62-3054Cmlcx gap [Moles/Vol]11.3 mmol/LNormalThe Memorial HospitalComment on above:Performed By: #### VITAD, FETIBC, FERR #### [facility] [address] [place] [address] Dr. Andrey HargroveCalcium [Mass/Vol]8.9 mg/dLNormal8.5-10.1[facility] Comment on above:Performed By: #### VITAD, FETIBC, FERR #### [facility] [address] [place] [address] Dr. Andrey HargroveChloride [Moles/Vol]100 mmol/EOafjfg64-868EccKettering Health [facility] Campus Comment on above:Performed By: #### VITAD, FETIBC, FERR #### [facility] [address] [place] [address] Dr. Andrey HargroveCO2 [Moles/Vol]30.9 mmol/LVeeyrd02.0-32.0[facility] Comment on above:Performed By: #### VITAD, FETIBC, FERR #### [facility] [address] [place] [address] Dr. Andrey HargroveCreatinine [Mass/Vol]2.01 mg/dLCritically high0.55-1.02[facility] CampusComment on above:Performed By: #### VITAD, FETIBC, FERR #### [facility] [address] [place] [address] Dr. Andrey WilkinsonGFR-AF EZJGOPNJ19 mL/min/1.44d2Lilbcyqjkb low>=60[facility] CampusComment on above:Performed By: #### VITAD, FETIBC, FERR #### [facility] [address] [place] [address] Dr. Andrey WilkinsonGFR-NON AF UVRUVUME56 mL/min/1.37r5Nengrgbprl low>=60[facility] CampusComment on above:Performed By: #### VITAD, FETIBC, FERR #### [facility] [address] [place] [address] Dr. Andrey HargroveGlucose [Mass/Vol]81 mg/kSJfpdqy59-929SpkKettering Health [facility] Campus Comment on above:Performed By: #### VITAD, FETIBC, FERR #### [facility] [address] [place] [address] Dr. Andrey HargrovePotassium [Moles/Vol]3.2 mmol/LCritically low3.5-5.1The Memorial HospitalComment on above:Performed By: #### VITSHAQ, FETIBC, FERR #### [facility] [address] [address] [address] Andrey HargroveSodium [Moles/Vol]139 mmol/YXavzaq543-013Avp [facility] Comment on above:Performed By: #### VITAD, FETIBC, FERR #### [facility] [address] [address] [address] Andrey HargroveUrea nitrogen [Mass/Vol]51.0 mg/dLCritically high7.0-18.0The Memorial HospitalComment on above:Performed By: #### VITSHAQ, FETIBC, FERR #### [facility] [address] [place] [address] Dr. Andrey Mccarty nitrogen/Creatinine [Mass ratio]25.4 mg/mgNormalThe Memorial HospitalComment on above:Performed By: #### FIDENCIO, FETIBC, FERR #### [facility] [address] [address] [address] Andrey Villalobos Antigenon 21-73-8288TOPNT-19 AntigenHealthcare Worker?: N Kenny Reference Kenny Reference Negative [...] its performance Kenny Disclaimer characteristic determined by youmag and Kenny Disclaimer validated at [facility]. This Kenny Disclaimer test has [...] Emergency Use Authorization for Coronavirus Kenny Disclaimer iseas-2018 during the Public Health Emergency) Kenny Disclaimer [...] is terminated or revoked sooner. PERFORMED BY: [facility] [address] [place] [address] PATHOLOGIST [employer] FACILITY OPERATOR JAMAL ALLEN M.D.NormalMagruder Memorial HospitalComment on above: Performed By: #### SOFIAPOS, COVID-19 KENNY #### [facility] [address] [place] [address] [place]AS[place]ia Ag Positiveon 29-34-7328Oozna Ag PositivePositive Critically abnormalNegativeMagruder Memorial HospitalComment on above: Result Comment: This is a duplicate Kenny SARS Antigen (JOSE RAMON) result to be used for statistical tracking purpose only. PERFORMED BY: [facility] [address] [place] [address] PATHOLOGIST [employer] FACILITY OPERATOR JAMAL ALLEN M.D.Performed By: #### SOFIAPOS, COVID-19 KENNY #### [address] [address] USACoding Summary.on 61-06-0480Gidopg Summary. CD:[id number]:[id number]+PGhlYWQ+US6YAXIuJ32jqQNclW0KF8sCSV1WHAUXUZUBIX0PMI6ff RT3TQcuK3DddkJm [file] bGxh (more content not included)...[facility] DaytonConsent for Procedure/Surgeryon 88-40-7780Jlgjbxp for Procedure/Surgery [id number]#1.00CD:[address] [place], [place] [address]Formson [id number]#1.00CD:127 [facility] DaytonLab Reportson 41-04-5678Iip Reports [id number]#1.00CD:[address] [place], [place] [address]Physician Referralon 61-09-3228Ubttktkaj Referral [id number]#1.00CD:[address] [place], [place] [address]RAD - MISCon 71-05-3205KPP - MISC [id number]#1.00CD:[address] [place], [place] [address]RAD - Ultrasound Reporton 09-42-2990BEN - Ultrasound Report [id number]#1.00CD:[address] [place], [place] [address]Ambulatory Clinical Summaryon 82-99-5324Fltptrvelp Clinical Summary {97-80-53-t0-60-hw-3k-96-n9-94-v8-01-52-c3-f8-10}CD:[id number] Clinic Akron General Lodi HospitalPatient Educationon 72-09-6865Isvlxpn EducationUrology Hematuria, Adult Hematuria is blood in the urine. Blood may be visible in the urine, or it may be identified with a test. This condition can be caused by infections of the bladder, urethra, kidney, or prostate. Otherpossible causes include: ? Kidney stones. ? Cancer [...] blood in your urine, even if it ispainless or the blood stops without treatment. Blood in the urine, when it happens and then stops and then happens again, can be a symptom of a very serious condition, including cancer. There is no pain in the initial stages of many urinary cancers. Follow these instructions at home: Medicines ? Take nixu-isl-wsoucjo and prescription medicines only as told by [...] the blood stops without treatment. ? Take grxb-row-vohdqlb and prescription medicines only as told by your health care provider. ? Drink enough fluid to keep your urine clear or pale yellow. This information is not intended to replace advice given to you by your health care provider. Make sure you discuss any questions you have with your health care provider. Document Released: 06/19/2006 Document Revised: 11/13/2019 Document Reviewed: 07/22/2017 [employer] Patient Education ? 2019 [employer].[facility] Urology Office/Clinic Noteon 52-86-7766Oiubkyc Office/Clinic NoteChief Complaint Cysto/UD HPI Staff Cysto/UD Scope#5 ABX [...] The Urethra was dilated to: _18- 30 Vietnamese with sounds. Specimens Removed: None Removal: Cystoscope [...] URL [facility] [address], [place] [address]- [phone] Additional Instructions: f/u PRN Patient Education Hematuria, [...] Anesthesia for laparoscopic procedure on lower abdomen, Append ectomy, Biopsy of thyroid, section, Cheilectomy of tarsal, [...] 50,000 intl units (1.25 mg) oral capsule, 14538 International_Unit= 1 cap(s), Monday Zioptan 0.0015% ophthalmic solution Allergies erythromycin (Anaphylactic reaction) penicillin (Hives) Social History Alco (more content not included)...[facility]red Hospital DaytonComment on above:Result Comment: Electronically Signed By: Marcos KWON MD\.br\Date and Time Signed: 12/15/20 15:58 EDT\.br\Electronically Co-Signed By: Donna Hartley\.br\Date and Time Co-Signed: 12/15/20 15:56 EDTReminderson 12-14-2020 Reminders From: Augusta Singh To: EU - Clinical; Sent: 12/11/2020 13:29:41 EDT Show up: 12/14/2020 13:29:00 EDT Subject: Urine culture Reminder/Recall Urine Culture PRW reviewed positive culture.[facility] Urineon 60-13-9465Bxvlgzcp identified Cx Nom (U)Microbiology PROCEDURE: Urine Culture [R1] SOURCE: U Random BODY SITE: COLLECTED DATE/TIME: 12/11/2020 13:25 EDT RECEIVED DATE/TIME: 12/11/2020 18:10 EDT START DATE/TIME: 12/11/2020 18:10 EDT FREE TEXT SOURCE: CHER VIGIL, Marcos Shea MD FINAL REPORTS Final Report [] Verified Date/Time: 12/13/2020 11:53 EDT >100,000 cfu/ml Escherichia coli SUSCEPTIBILITY RESULTS LEGEND: S=Susceptible, N/R=Not Reported, Blank=Data not available, or drug not advisable or tested, I=Intermediate, ESBL=Extended spectrum beta-lactamase, R=Resistant, TFG=Thymidine-dependent strain, KEIRA=Beta-lactamase positive, DAE=mcg/m;(mg/L), S*=Predicted susceptible interp, [...] Locations R1: This test was performed at: [facility], [address] [place] [address], [address] , , AurptsKyymugKindred Hospital DaytonComment on above:Performed By: #### [id number] ####[facility] [address] [place], [place] [address]Ljapztqmvu Clinical Summaryon 90-72-1330Woxharjibu Clinical Summary {76-33-0y-u1-52-rt-52-s4-8f-1d-y6-dg-d3-6c-b8-cc}CD:009280YroozyHduuwiKindred Hospital DaytonAmbulatory Clinical Summary {13-2g-xo-14-42-21-2i-3p-uo-57-3b-7t-8d-13-29-0f}CD:[id number] Clinic Akron General Lodi HospitalAmbulatory Clinical Summary {1c-2n-7k-32-2g-9t-59-0g-73-84-23-5x-2b-c5-e6-1f}CD:158105CoiljaLbgkdmKindred Hospital DaytonPatient Educationon 59-74-2192Omzyekh EducationUrology Hematuria, Adult Hematuria is blood in the urine. Blood may be visible in the urine, or it may be identified with a test. This condition can be caused by infections of the bladder, urethra, kidney, or prostate. Otherpossible causes include: ? Kidney stones. ? Cancer [...] blood in your urine, even if it ispainless or the blood stops without treatment. Blood in the urine, when it happens and then stops and then happens again, can be a symptom of a very serious condition, including cancer. There is no pain in the initial stages of many urinary cancers. Follow these instructions at home: Medicines ? Take qanz-oqv-ciarinf and prescription medicines only as told by [...] the blood stops without treatment. ? Take wqaz-lop-wlgxzct and prescription medicines only as told by [...] Reviewed: 07/22/2017 Elsevier Patient Education ? 2019 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 Jenkins due to Hematuria. Pt states that since the End of October she has been feeling a slight squeeze, no pain associated with this. Pt had a Renal US done at [facility]. Pt states that she has a Kidney stone found on the renal US. Denies any urinary tract infections. Ptstates that she went urgent care and states that she had e-coli in urine and was rx Bactrim and told her not to take this if [...] UTI sxs. Will send UA for culture. Willstart pt. on Keflex 250mg bid, #14. Discussed [...] VIGIL, Marcos Abreu, URL [address] [place] [phone] Additional Instructions: Patient Education Hematuria, Adult I, [...] 100 mg Tab amLOD (more content not included)...[facility]red Hospital DaytonComment on above:Result Comment: Electronically Signed By: CHER VIGIL, Marcos Abreu\.br\Date and Time Signed: 12/11/20 11:17 EDT\.br\Electronically Co-Signed By: Regla Pyle MA\.br\Date and Time Co-Signed: 12/11/2110:12 EDTLab Reportson 53-59-5237Dul [id number]#1.00CD:127[facility] CenterLab Reports [id number]#1.00CD:[address] [place], [place] [address]RAD - Ultrasound Reporton 40-33-1118SXX - Ultrasound Report [id number]#1.00CD:[address] [place], [place] [address]IntraOperative Documentson 49-38-6302OvsohVysqejsco Documents [id number]#1.00CD:[address] [place], [place] [address]Message from Medicareon 90-92-1186Ecwsfib from Medicare [id number]#1.00CD:[address] [place], [place] [address]Coding Summary.on 09-03-3010Gqufbz Summary.CODING DATE: 05/06/2020 FINAL [facility] STATUS: Home (Routine DC) PAYOR: Medicare [...] PROC APC STAT DESCRIPTION DOCTOR NAME DATE 54412 7407 J1 Arthroscopy, knee, David Talamantes DO 05/01/2020 surgical; with meniscectomy (medial OR lateral, including any meniscal shaving) including debridement/shaving of articular cartilage (chondroplasty), same or separate compartment(s), when performed LT Left side (used to identify procedures performed on the left side of the body) 33316 Anesthesia for open or [place] Gurmeet Gomes DO 05/01/2020 surgical arthroscopic procedures on knee joint; not otherwise specified NOTE: The code number assigned matches the documented diagnosis and / or procedure in the patient's chart. However, the narrative phrase printed from the coding software may appear abbreviated, or result in slightly different terminology. Revised Coded By: Carmita Bowers Revised Date Saved: 05/06/2020 11:55 [facility]NTri[facility] Insurance Correspondence Officeon 39-31-7445Qvqvtafjq Correspondence Office [id number]#1.00CD:127NormOhioHealth Van Wert HospitalMain OR Intraoperative Recordon 32-16-3923Oope OR Intraoperative Record IntraOp Document Type FT Summary Primary Physician: David Talamantes DO Finalized Date/Time: 05/05/20 14:09:46 Pt. Name: CLAUDIA ESTRELLA/Sex: 1950 Female Med Rec #: [id number] Physician: David Talamantes DO Financial #: [id number] Pt. Type: O Room/Bed: N217/01 Admit/Disch: 05/01/20 [...] Role Performed Anesthesiologist of Surgeon - Primary Biostatistics Director - Primary Record Time In 05/01/20 14:26:00 05/01/20 14:39:00 05/01/20 14:26:00 Time Out 05/01/20 15:04:00 05/01/20 15:04:00 05/01/20 15:04:00 Procedure KNEE ARTHROSCOPY(Left) KNEE ARTHROSCOPY(Left) KNEE ARTHROSCOPY(Left) Comments Last Modified By: Edgar RN, Viky Hernández RN, Viky Krueger RN 05/01/20 15:04:35 05/01/20 15:04:35 05/01/20 15:04:35 Entry 4 Entry 5 Entry 6 Case Attendee Maxim RN, Augusta Castro [employer], Leatha Flowers RN, CNOR, Cee Role Performed Biostatistics Director - Primary Scrub - Primary Biostatistics Director - Relief Time In 05/01/20 14:26:00 05/01/20 [...] and tissue Entry 1 Skin Integrity Intact, [place], Warm, and Skin Abnormality No Dry Outcomes Met? Yes Last Modified By: Edgar WU, Viky Mcdonough 05/01/20 14:46:48 Post-Care Text: The patient is free from signs and symptoms of injury caused by extraneous objects Patient Positioning FT Pre-Care Text: Identifies physical alterations that require additional precautions for procedure-specific positioning, verifies presence of prosthetics or corrective (more content not included)... [facility] DaytonProgress Note-Physicianon 87-26-3414Sicszcjp Note-PhysicianPatient: CLAUDIA ESTRELLA Age: 70 years Sex: Female : 1950 Associated Diagnoses: None Author: Gurmeet Aldridge Jr, DO Preoperative Information Time patient last ate or drank:=== (npo 8 hours) Anesthesia history: Patient history: No prior anesthesia problems. Re-evaluation prior to induction: Completed, Initial evaluation reviewed. Review of Systems Respiratory: No shortness of breath. Cardiovascular: No chest pain. Hematology/Lymphatics: No bruising tendency, No bleeding tendency. Health [...] volume (mL): 1,000, 68.3 kg, 1.64, m2 Burton 5/325 Tab: 1 tab(s), Tab, Oral, q4hr [...] date 04/28/20 18:05:00 EDT Documented Medications Documented [place] KaterineikPen: 15 unit(s), SubCutaneous, TID, High blood sugar Restasis 0.05% ophthalmic emulsion: 1 drop(s), Eye-Both, BID, Dry eyes amLODIPine 10 mg Tab: 10 mg = 1 tab(s), Oral, Daily, High blood pressure aspirin 81 mg oral tablet: 81 mg = 1 tab(s), Oral, Daily, Prophylaxis hydrochlorothiazide-lisinopril 12.5 mg-20 mg Tab: 1 tab(s), Oral, Daily, High blood pressure metoprolol 25 mg ER Tab: See Instructions, 1.5 tab Oral Daily, Refills(s) 0, High blood pressure Problem list: All Problems DM kidney disease / SNOMED CT 542620788 / Confirmed PVD (peripheral vascular disease) / SNOMED CT 6701193035 / Confirmed MMT (medial meniscus tear) / SNOMED CT 882351992 / Confirmed Resolved: Ocular herpes zoster / SNOMED CT 292616180 Resolved: HTN (hypertension) / SNOMED CT 2376684935 Canceled: Diabetes / SNOMED CT 521737226 Histories Past Medical History: No active or resolved past medical history items have been selected or recorded. Family History: No family history items have been selected or recorded. Procedure history: Right eye cataract extraction and insertion of intraocular lens (4624727279) on 11/19/2019 at 69 Years. Cataract extraction and insertion of intraocular lens (9508809549) on 11/06/2019 at 69 Years. Comments: 11/06/2019 14:13 EDT - Fabian WU, Loreto Lois Left Appendectomy (488100757). section x2 (52222952). Cholecystectomy (35330142). Anesthesia for laparoscopic procedure on lower abdomen (53400145). Cheilectomy of tarsal foot (2070131831). Social History Social & Psychosocial Habits Alcohol [...] results Radiology results ECG interpretation Condition Plan [place] [employer]esthesiologists (ASA) physical status classification: Class III. Anesthetic Preoperative (more content not included)...[facility] Hospital DaytonComment on above:Result Comment: Electronically Signed By: Gurmeet Aldridge Jr, DO\.br\Date and Time Signed: 05/05/20 08:22 ESTProgress Note-Physician Patient: CLAUDIA ESTRELLA Age: 70 years Sex: Female : 1950 Associated Diagnoses: None Author: Gurmeet Aldridge Jr, DO Postoperative Information Post Operative Note: Post Anesthesia Care Unit. Anesthetic utilized: General. Health Status Allergies: Allergic Reactions (Selected) Severity Not Documented Erythromycin- Anaphylactic reaction. Penicillin- Hives. Problem list: All Problems DM kidney disease / SNOMED CT 274307074 / Confirmed PVD (peripheral vascular disease) / SNOMED CT 9938339740 / Confirmed MMT (medial meniscus tear) / SNOMED CT 467948521 / Confirmed Resolved: Ocular herpes zoster / SNOMED CT 991307287 Resolved: HTN (hypertension) / SNOMED CT 8029665676 Canceled: Diabetes / SNOMED CT 217943998 Physical Examination Vital Signs 05/01/2020 16:58 EDT [...] levels. will F/U Plan Transfer/ Discharge: Condition stable.[facility] Hospital DaytonComment on above:Result Comment: Electronically Signed By: Gurmeet Aldridge Jr, DO\Date and Time Signed: 05/05/20 08:22 ESTCapillary Glucose POCon 70-21-1308Nohpond [Mass/Vol]149 mg/mDVuym31-59Gkdel[address] [place], [place] [address]Comment on above:Result Comment: Notified RN/MDPerformed By: #### [id number] #### [facility] [address] [place] [address]Rvjnfro [Mass/Vol]127 mg/bWZphp64-61Pbgosv[address] Comment on above:Result Comment: Notified RN/MDPerformed By: #### [id number] #### [facility] [address], [place] [address]Nycidxj for Anesthesiaon 74-12-2887Vjwhkif for Anesthesia [id number]#1.00CD:[address] [place], [place] [address]Discharge Instructionson 42-10-2040Dlyljqibi Instructions [id number]#1.00CD:127[facility] DaytonInpatient Clinical Summaryon 33-73-5454Xzfwdznjb Clinical Summary [address] [address] Clinical Summary Person Information: Name: CLAUDIA ESTRELLA Age: 70 Years : 1950 Sex: Female PCP: JOHN PERDOMO DO Marital Status: Race: White Ethnicity: Non- or Language: [place] Visit Id: Visit Reason: LEFT KNEE BONE BRUISE, MEDIAL MENISCUS TEAR, EFFUSION Speciality: Acuity: Enc Type: Observation Med Service: Surgery Arrival: 05/01/2020 11:43:14 Discharge: Dispo Type: Address: [address] [place] [address] Provider Notes: Diagnosis: 1:Other chest pain; 2:Hypertension; [...] Drops Both eyes 2 times a day. hydrochlorothiazide-lisinopril (hydrochlorothiazide-lisinopril 12.5 mg-20 mg Tab) 1 Tablets By Mouth every day. insulin glargine (Basaglar KwikPen) 15 Units Subcutaneous 3 times a day. metoprolol (metoprolol 25 mg ER Tab) 1.5 tab Oral Daily. Care Team Members: Attending Physician: Nhung BARAHONA MD Consulting Physician: John Mcclellan MD Referring Physician: David Talamantes DO Follow up: With: Address: When: Follow up with Airport Representative Within 1 week With: Address: When: JOHN PERDOMO [facility] [place] [address] Business (1) With: Address: When: David Talamantes [address] [phone] Business (1) Comments: Keep scheduled appointment Patient Education Information: Post Op Patient Instructions - FT (Custom); Knee Cryocuff Patient Instructions - FT (Custom); Talamantes - Knee Arthroscopy (Custom) (CUSTOM)[facility] DaytonInpatient Patient Summaryon 29-70-9046Ogwzkrdcl Patient Summary [place] [address] Patient Discharge Instructions PERSON INFORMATION Name: CLAUDIA [...] Dressing On : 2 David Talamantes DO Guilherme - 04/28/2020 18:06 EDT Primary Care Physician to provide the following pending test results: None Follow up: With: Address: When: Follow up with Airport Representative Within 1 week With: Address: When: JOHN PERDOMO [address] [place] [address] Business (1) With: Address: When: David Talamantes [address] [place] [address] Business (1) Comments: Keep scheduled appointment In the event that this physician does not participate in your insurance network, please consult with your insurance company to find a nearby participating provider. Comment: SAMEER Burnett SHARON E, have received the attached patient education materials/instructions and have verbalized understanding: Patient Signature Date Clinican/Nurse Signature Date HERE ARE THE MEDICATION CHANGES THAT OCCURRED DURING YOUR HOSPITAL STAY New Medications [id number], [address], [place] [id number], [phone] atorvastatin (Lipitor 20 mg Tab) 1 Tablets [...] times a day. Last Dose: Next Dose: hydrochlorothiazide-lisinopril (hydrochlorothiazide-lisinopril 12.5 mg-20 mg Tab) 1 Tablets By [...] ALL TIMES. amlodipine (amLO (more content not included)...[facility] Interdisciplinary Note - PTon 19-80-4678Oqtuponzmnjldgaua Note - PTPT Screen performed. Pt was able to stand and ambulate throughout room without difficulty and without an AD. Pt also demos appropriate ROM to knee. Would recommend to f/u with Ortho to determine if therapy is needed in the future, but no PT needed at this timeNoCleveland Clinic Ak[facility] Lodi HospitalIntraOperative Documentson 05-04-2020 IntraOperative [id number]#1.00CD:127 [facility] DaytonIntraOperative Documents [id number]#1.00CD:127BrandonAdventhealthpro Saint Luke InstituteMessage from Medicareon 05-78-4665Qcbkxrk from Medicare [id number]#1.00CD:127BrandonLutheran HospitalMonitor Recordon 57-17-5856Mhzxojb Record [id number]#1.00CD:127BrandonLutheran HospitalMonitor [id number]#1.00CD:127Normal [facility] HospitalMonitor Record [id number]#1.00CD:[address] [place], [place] [address]Patient Education - Texton 68-78-5171Vwlxrzz Education - Text [place], [place] [facility] DISCHARGE INSTRUCTIONS: KNEE ARTHROSCOPY Diet Begin with a liquid diet and advance to your normal diet as tolerated. Activity You may gradually increase your activity as tolerated. Until your first post- operative visit elevate your knee higher than your [...] side. This is important for protection of yourknee after surgery. Although you will find that [...] is comfortably tolerated. Do not forcefully bend untilyou have permission by your surgeon. Driving is [...] directed but do not return to activity. Ifsevere pain persists despite rest, elevation and medication, [...] There may be some numbness around the portalsthat can take several days or several weeks [...] 10 and 14 days after surgery and youwill be given an appointment card. Do not hesitate to call the office or the hospital if any problems or questions arise before your appointment. David Talamantes, DO [facility] [address] [place] [address] Reviewed: 10-08NoCleveland Clinic [facility] Lodi HospitalPreoperative Documentson 50-24-4841Quqesbenegfz Documents [id number]#1.00CD:127[facility] DaytonPreoperative [id number]#1.00CD:127 [facility] DaytonPrescriptions/Work Noteson 05-04-2020 Prescriptions/Work [id number]#1.00CD:127 [facility] Hospital DaytonCapillary Glucose POCon 97-30-4771Izbjfov [Mass/Vol]183 mg/kGQnug68-52Bdztkq16 [address] StreetComment on above: Performed By: #### [id number] #### [facility] [address], [place] [address]Wsrzndu [Mass/Vol]155 mg/hDUqbe19-70Bwmboi[address] Comment on above:Performed By: #### [id number] #### [facility] [address], [place] [address]Tfqmrvh [Mass/Vol]113 mg/vTOiou19-40BsysevLutheran Hospital Comment on above:Result Comment: Notified RN/MDPerformed By: #### [id number] ####[facility] [address] [place] [address] Glucose [Mass/Vol]112 mg/iBKcep90-53LrtmccLutheran HospitalComment on above: Performed By: #### [id number] #### [facility] [address] [facility], [place] [address]Tvmfsns [Mass/Vol]85 mg/fHTonljs61-45SkdeoiLutheran HospitalComment on above:Result Comment: Notified RN/MDPerformed By: #### [id number] #### [facility] [address] [facility], [place] [address]Rbfcitd [Mass/Vol]59 mg/iFXjqqeh12-82WkhdcvLutheran HospitalComment on above:Result Comment: Notified RN/MDPerformed By: #### [id number] #### [facility] [address] [facility], [place] [address]Xtszazpqzook Noteon 87-10-9296Ioqofhxkwxbi NoteHOSPITAL REGULATIONS: ALL Positive Important Negative Findings Shall [...] Carter DO [facility] Dictated: 05/02/2020 #[id number] Typed: 05/02/2020 #[id number] cc: DO David Nieto D.O.[facility] Hospital DaytonComment on above:Result Comment: Electronically Signed By: Eh Carter DO\.br\Date and Time Signed: 05/03/20 10:27 ESTMonitor Recordon 19-81-3356Dkassux Record [id number]#1.00CD:127[facility] DaytonMonitor [id number]#1.00CD:127[facility] Medical CenterOperative Reporton 85-99-1969Jbmupgmwx ReportDate of Surgery: 05/01/2020 SURGEON: David Talamantes D.O. [...] Talamantes D.O. [facility] Dictated: 05/01/2020 #[id number] Typed: 05/01/2020 #[id number] cc: Randa Lanier D.O.[facility] Hospital DaytonComment on above:Result Comment: Electronically Signed By: David Talamantes DO\.br\Date and Time Signed: 05/03/20 09:22 ESTProgress Note-Physicianon 37-27-4419Rswnyvql Note-PhysicianAssessment/Plan 1. Other chest pain (R07.89: Other chest [...] Systems Constitutional: No fevers, chills Eye: Negative. Ear/Nose/Mouth/Throat: Negative. Respiratory: Negative Cardiovascular: Negative. Gastrointestinal: Negative. [...] mg/dL High (05/03/20 12:18:00) POC Device SN: [id number] (05/03/20 12:18:00) POC Username: JOSESITO BROWN (05/03/20 [...] 0.4 mg= 1 tab(s), SubLingual, q5min, PRN Burton 5/325 Tab, 1 tab(s), Oral, q4hr, PRN [...] Restasis 0.05% ophthalmic emulsion, 1 drop(s), Eye-Both, [facility] HospitalComment on above:Result Comment: Electronically Signed By: JUN VIGIL, Nhung\.br\Date and Time Signed: 05/03/20 14:42 ESTProgress Note-Physician Subjective Patient doing well, no further [...] mg/dL High (05/03/20 07:32:00) POC Device SN: [id number] (05/03/20 07:32:00) POC Username: POC Username (05/03/20 [...] to obtain her records from her primary pediatric nurse practitioner once 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 Continue babyaspirin and hydrochlorothiazide. 2. Hypertension (I10: Essential (primary) [...] Push, q2hr, PRN L (more content not included)...[facility] DaytonComment on above:Result Comment: Electronically Signed By: Eleuterio VIGIL, John Marin.br\Date and Time Signed: 05/03/20 07:45 ESTCapillary Glucose POCon 01-90-0886Bkjjozg [Mass/Vol]212 mg/zZZcyz77-08Egzxhh16 [address] StreetComment on above: Performed By: #### [id number] #### [facility] [address], [place] [address]Iafvgdv [Mass/Vol]138 mg/pBZpkf77-45Mgkidm[address] Comment on above:Performed By: #### [id number] #### [facility] [address], [place] [address]Zicpeld [Mass/Vol]139 mg/cJLgjt15-77Wybpuv[address] Comment on above:Performed By: #### [id number] #### [facility] [address], [place] [address]Jbkvuug [Mass/Vol]105 mg/cENtux99-54Yrqwgv[address] Comment on above:Performed By: #### [id number] #### [facility] [address], [place] [address]Dlmctwf [Mass/Vol]233 mg/xTCvrk32-79OjhrjiLutheran Hospital Comment on above:Result Comment: Notified RN/MDPerformed By: #### [id number] ####[facility] [address] [place], [place] [address]Uxnxm Panelon 96-53-9955Vrxsstwmynu [Mass/Vol]160 mg/cQTlikhq879-274GqfnpsLutheran HospitalComment on above:Performed By: #### [id number] #### [facility] [address], [place] [address]Nfuvwjzwqbk in HDL [Mass/Vol]49 mg/dLInvalid Interpretation CodeLutheran HospitalComment on above:Result Comment: HDL > or equal to 60 mg/dL: Low cardiovascular risk HDL < 40 mg/dL : High cardiovascular riskPerformed By: #### [id number] #### [facility] [address], [place] [address]Nxfozddkvsa in LDL [Mass/Vol]98 mg/dLNormal<=129Lutheran HospitalComment on above:Performed By: #### [id number] #### [facility] [address], [place] [address]Tymsbcqitdg in VLDL [Mass/Vol]12 mg/dLNormal7-40Lutheran HospitalComment on above:Performed By: #### [id number] #### [facility] [address], [place] [address]Wffcyrwcadeh [Mass/Vol]61 mg/dLNormal<=149Lutheran HospitalComment on above:Performed By: #### [id number] #### [facility] [address], [place] [address]Fhspifq Recordon 81-57-0466Xcsszja Record [id number]#1.00CD:127NormalLutheran HospitalProgress Note-Physicianon 04-77-0812Indtbgig Note-PhysicianAssessment/Plan 1. Other chest pain (R07.89: Other chest [...] PRN Indigestion, Routine, Startdate 05/01/20 18:18:00 EDT amlodipine, 10 mg = [...] Systems Constitutional: No fevers, chills Eye: Negative. Ear/Nose/Mouth/Throat: Negative. Respiratory: Negative Cardiovascular: Negative. Gastrointestinal: Negative. [...] 29.6 pg (05/01/20 18:27:00) (more content not included)...[facility] DaytonComment on above: Result Comment: Electronically Signed By: JUN VIGIL, Nhung\.br\Date and Time Signed: 05/02/20 10:00 EDTTroponin 3 Hr.on 29-34-5105Fllnemlh I.cardiac [Mass/Vol]3.60 pg/mLLow10.10-27.10Lutheran HospitalComment on above: Result Comment: The 95% CI (Confidence Interval) PPV (Positive Predictive Value) for myocardial infarction in females is 38 pg/mL, in males 51 pg/mL. The results should be used in conjunction with clinical conditions of myocardial infarction. (Access High Sensitivity Troponin I Instructions For Use, [employer], January 2018)Performed By: #### [id number] #### [facility] [address], [place] [address]Smpxguhm 6 Hr.on 15-77-8769Vfpketqw I.cardiac [Mass/Vol]3.90 pg/mLLow10.10-27.10Lutheran HospitalComment on above:Result Comment: The 95% CI (Confidence Interval) PPV (Positive Predictive Value) for myocardial infarction in females is 38 pg/mL, in males 51 pg/mL. The results should be used in conjunction with clinical conditions of myocardial infarction. (Access High Sensitivity Troponin I Instructions For Use, [employer], January 2018)Performed By: #### [id number] #### [facility] [address], [place] [address]Czzhglxe 9 Hr.on 22-05-9322Zzrgthdo I.cardiac [Mass/Vol]5.10 pg/mLLow10.10-27.10Lutheran HospitalComment on above:Result Comment: The 95% CI (Confidence Interval) PPV (Positive Predictive Value) for myocardial infarction in females is 38 pg/mL, in males 51 pg/mL. The results should be used in conjunction with clinical conditions of myocardial infarction. (Access High Sensitivity Troponin I Instructions For Use, [employer], January 2018)Performed By: #### [id number] #### [facility] [address], [place] [address]GZ Carotid Duplex Bilateralon 04-88-9235PV Carotid Duplex BilateralExam Date/Time: 05/02/2020 13:21 EDT Reason for Exam: [...] 199/45 Prox ECA (cm/sec): 199/15 Vert. Antegrade YesNormalFisher Catron Medical CenterAuto Diffon 05-01-2020 Basophils/100 WBC (Bld)0.4 %Normal0.0-2.0Lutheran HospitalComment on above:Order Comment: Order Added by Discern Expert.Performed By: #### [id number], [id number], [id number], [id number] #### [facility] [address] [place] [address]Phpzmhltx/Leukocytes Auto (Bld) [Pure # fraction]0.0 E9/LNormal 0.0-0.2Fisher Saint Luke InstituteComment on above:Order Comment: Order Added by Discern Expert.Performed By: #### [id number], [id number], [id number], [id number] #### [facility] [address] [place] [address]Ovolehborwk/100 WBC (Bld)1.2 %Normal0.0-8.0Lutheran HospitalComment on above:Order Comment: Order Added by Discern Expert.Performed By: #### [id number], [id number], [id number], [id number] #### [facility] [address] [place] [address]Sxgacpzwgyg/Leukocytes Auto (Bld) [Pure # fraction]0.1 E9/L Normal0.0-0.5FMercy Health St. Anne HospitalComment on above:Order Comment: Order Added by Discern Expert.Performed By: #### [id number], [id number], [id number], [id number] #### [facility] [address], [place] [address]Dpzmkwzmxqk/100 WBC (Bld)9.7 %Low14.0-50.0Lutheran HospitalComment on above:Order Comment: Order Added by Discern Expert.Performed By: #### [id number], [id number], 3586181, [id number] #### [facility] [address] [place] [address]Hrgzsdvtxbi/Leukocytes Auto (Bld) [Pure # fraction]1.0 E9/L Normal1.0-4.0Lutheran HospitalComment on above:Order Comment: Order Added by Discern Expert.Performed By: #### [id number], [id number], 9051173, 4034856 #### [facility] [address] [place] [address]Ndgjyeava/100 WBC (Bld)4.2 %Normal4.0-14.0Lutheran HospitalComment on above:Order Comment: Order Added by Discern Expert.Performed By: #### [id number], [id number], 3687402, 8762276 #### [facility] [address] [place] [address]Dzuravfci/Leukocytes Auto (Bld) [Pure # fraction]0.4 E9/LNormal 0.2-1.0Lutheran HospitalComment on above:Order Comment: Order Added by Discern Expert.Performed By: #### [id number], [id number], [id number], [id number] #### [facility] [address] [place] [address]Gbssezvyyaq/100 WBC (Bld)84.5 %High36.0-75.0Lutheran HospitalComment on above:Order Comment: Order Added by Discern Expert. Performed By: #### [id number], [id number], 8939098, 3944962 #### [facility] [address] [place] [address]Buwxrvdmfic/Leukocytes Auto (Bld) [Pure # fraction]8.9 E9/LHigh 2.0-7.5FMercy Health St. Anne HospitalComment on above:Order Comment: Order Added by Discern Expert.Performed By: #### [id number], [id number], 2046760, [id number] #### [facility] [address] [place] [address]JVNze 12-55-1372Gdxvibq [Mass/Vol]8.9 mg/dLNormal8.9-11.1FMercy Health St. Anne HospitalComment on above:Performed By: #### 7882253, 94601324, 3193819, 5764763 #### [facility] [address], [place] [address]Rnqcj gap [Moles/Vol]10 mmol/LNormal6-16Lutheran HospitalComment on above:Performed By: #### [id number], 86749956, 1681359, 3240331 #### [facility] [address], [place] [address]Fykyzbep [Moles/Vol]103 mmol/NEyqyyr759-146OjncdwLutheran HospitalComment on above:Performed By: #### 0137931, [id number], 9723947, 8413888 #### [facility] [address], [place] [address] [Moles/Vol]24 mmol/GNthxmi56-67MrhkelLutheran Hospital Comment on above:Performed By: #### 1978136, 23684238, 8041613, 8651788 #### [facility] [address], [place] [address]Blrjlvemvc [Mass/Vol]1.6 mg/dLHigh0.5-1.3FMercy Health St. Anne HospitalComment on above:Performed By: #### 8100655, 09617436, 2285676, 9206742 #### [facility] [address], [place] [address]Voaaioc [Mass/Vol]167 mg/vNFxeylg27-720UjsnxjLutheran HospitalComment on above:Result Comment: If this glucose result represents a fasting glucose, interpretation should refer tothe following reference range: 55-99 mg/dLPerformed By: #### 2918688, 16131942, 2168576, 3942186 #### [facility] [address], [place] [address]Ganwssnkt [Moles/Vol]3.9 mmol/LNormal3.5-5.3FMercy Health St. Anne HospitalComment on above:Performed By: #### 5504994, 37762942, 9284961, 4255820 #### [facility] [address], [place] [address]Udkphz [Moles/Vol]133 mmol/LKvh486-578UvbafqLutheran HospitalComment on above:Performed By: #### 1452265, 37765469, 9484456, 0760567 #### [facility] [address], [place] [address]Ikut nitrogen [Mass/Vol]34 mg/dLHigh5-21Lutheran HospitalComment on above:Performed By: #### 1032211, 06136109, 6145394, 8735361 #### [facility] [address], [place] [address]Txur nitrogen/Creatinine [Mass ratio]21 No QakikQilp95-93TkoskeLutheran HospitalComment on above:Performed By: #### 5776095, 68079281, 4771645, 8515778 #### [facility] [address] [place] [address]LQA w/ Auto Diffon 66-82-3621Qivlnaekxda distribution width (RBC) [Ratio]13.0 %Cpjsag06.9-14.2FMercy Health St. Anne HospitalComment on above: Performed By: #### 5393301, 84559694, 4975099, 0726193 #### [facility] [address] [place] [address]Crvjmjarni (Bld) [Volume fraction]32.4 %Low34.0-46.0Lutheran HospitalComment on above:Performed By: #### 0132161, 31691995, 3718725, 2828094 #### [facility] [address], [place] [address]Tgxuzlrdcb (Bld) [Mass/Vol]11.2 g/dLLow12.0-16.0Lutheran HospitalComment on above:Performed By: #### 1882763, 01028192, 5677930, 1718697 #### [facility] [address] [place] [address] 18[address]AUT (RBC) [Entitic mass]29.6 qnQxkcbe76.0-34.0Lutheran HospitalComment on above:Performed By: #### 3731058, 33153349, 4261583, 4790791 #### [facility] [address] [place] [address]PZHH (RBC) [Mass/Vol]34.6 g/dJLwxmhz97.4-36.0Lutheran HospitalComment on above:Performed By: #### 2002836, 18953923, 8756462, 6845395 #### [facility] [address] [place] [address] 357[address]JDA (RBC) [Entitic vol]85.5 yNJwpagy78.0-100.0Lutheran HospitalComment on above:Performed By: #### 2088049, 14768583, 8984271, 8775832 #### [facility] [address] [place] [address]Wajpipeg mean volume (Bld) [Entitic vol]8.4 fLNormal6.4-10.8 Lutheran HospitalComment on above:Performed By: #### 6803243, 71092186, 9468651, 0139397 #### [facility] [address] [place] [address] 655[address]Wjtxrkvws (Bld) [#/Vol]242.0 E9/OZqxhtg981.0-500.0Lutheran HospitalComment on above:Performed By: #### 2056539, 88764089, 9015886, 5055841 #### [facility] [address] [place] [address]UFA (Bld) [#/Vol]3.8 E12/LLow4.3-5.9[facility] Comment on above:Performed By: #### 3399422, 29993283, 4377952, 6292973 #### [facility] [address] [place] [address]IMW corrected for nucl RBC Auto (Bld) [#/Vol]10.5 E9/LNormal 4.0-11.0Lutheran HospitalComment on above:Performed By: #### 6617548, 88572796, 7026591, 2811762 #### [facility] [address], [place] [address]Krsrbcjje Glucose POCon 21-47-5350Jzezlke [Mass/Vol]84 mg/dL Osctbx60-86YqcdfoLutheran HospitalComment on above:Result Comment: Repeat TestPerformed By: #### [id number] #### [facility] [address], [place] [address]Mewwunm [Mass/Vol]88 mg/aAJnemkw04-95RvzurvLutheran HospitalComment on above:Result Comment: Repeat TestPerformed By: #### [id number] #### [facility] [address], [place] [address]Foiows Summary.on 67-11-4616Wthbau Summary.CODING DATE: 05/01/2020 FINAL [facility] STATUS: Home (Routine DC) PAYOR: Medicare APC [...] Gabriela Houston CphT Date Saved: 05/01/2020 08:36 amNormalLutheran HospitalCoding Summary. CODING DATE: 04/25/2020 FINAL [facility] STATUS: Home (Routine DC) PAYOR: Medicare APC [...] Gabriela Houston CphT Date Saved: 04/25/2020 04:17 pmNormalLutheran HospitalConsent for Treatmenton 01-51-8898Dfpivhw for Treatment [id number]#1.00CD:127NormOhioHealth Van Wert HospitalConsent for [id number]#1.00CD:127 NormalLutheran HospitalH&P Updateon 05-01-2020H&P Update [id number]#1.00CD:127NoC[facility] HospitalMain OR PACU I Recordon 75-88-6495Smjs OR PACU I RecordPACU Phase I Document Type FT Summary Primary Physician: David Talamantes DO Finalized Date/Time: 05/01/20 18:04:55 Pt. Name: CLAUDIA ESTRELLA/Sex: 1950 Female Med Rec #: [id number] Physician: David Talamantes DO Financial #: [id number] Pt. Type: A Room/Bed: [place] [address] Admit/Disch: 05/01/20 11:43:14 - Institution: Case Times [...] individualized perioperative plan of care The patient's rightto privacy is maintained The patient's value system, [...] with or improved from baseline levels established preoperativelyThe patient's cardiovascular status is consistent with or improved from baseline levels established preoperatively The patient's cardiovascular status is consistent with or improved from baseline levels established preoperatively The patient demonstrates and/or reports adequate pain control throughout the perioperative period The patient received appropriate medication(s), safely administered during the perioperativeperiod Acuity Level PACU I FT Entry 1 Start Time 05/01/20 15:06:00 Stop Time 05/01/20 16:13:00 Acuity Level Acuity Level I Last Modified By: Ju Bates RN 05/01/20 18:04:53 Finalized By: Ju Bates RN Document Signatures Signed By: Ju Bates RN 05/01/20 18:04[facility] Recordon 99-29-5567Otny OR PACU II RecordPACU Phase II Document Type FT Summary Primary Physician: David Talamantes DO Finalized Date/Time: 05/01/20 20:09:08 Pt. Name: CLAUDIA ESTRELLA/Sex: 1950 Female Med Rec #: [id number] Physician: David Talamantes DO Financial #: [id number] Pt. Type: O Room/Bed: N306/01 Admit/Disch: 05/01/20 [...] and monitors body temperature Evaluates postoperative respiratory statusEvaluates postoperative cardiac status Evaluates postoperative neurological status Assesses pain control, collaborated in initiating patient-controlled analgesia and implements alternative methods of pain control Verifiesallergies, administers prescribed medications and solutions, evaluates response to medications Entry 1 In PACU II 05/01/20 16:20:00 Discharge from PACU 05/01/20 17:55:00 II Last Modified By: Yessy Curran RN 05/01/20 20:09:06 Post-Care Text: The patient demonstrates knowledge of the expected response to the operative or invasive procedure The patient's care is consistent with the individualized perioperative plan of care The patient's rightto privacy is maintained The patient's value system, [...] with or improved from baseline levels established preoperativelyThe patient's cardiovascular status is consistent with or improved from baseline levels established preoperatively The patient's neurological status is consistent with or improved from baseline levels established preoperatively The patient demonstrates and/or reports adequate pain control throughout the perioperative period The patient received appropriate medication(s), safely administered during the perioperativeperiod Finalized By: Yessy Curran RN Document Signatures Signed By: Yessy Curran RN 05/01/20 20:09[facility] Preoperative Recordon 92-87-6395Scev OR Preoperative RecordPreOp Document Type FT Summary Primary Physician: David Talamantes DO Finalized Date/Time: 05/01/20 14:45:06 Pt. Name: CLAUDIA ESTRELLA James/Sex: 1950 Female Med Rec #: [id number] Physician: David Talamantes DO Financial #: [id number] Pt. Type: A Room/Bed: [place] [address] Admit/Disch: 05/01/20 11:43:14 - Institution: Case Times [...] Signatures Signed By: Viky Hernández RN 05/01/20 14:45No[facility] Recordon 88-42-8169Mgdnmlv [id number]#1.00CD:127 [facility] Record [id number]#1.00CD:127[facility] Radiologyon 58-79-4135Zmhvjtw Radiology [id number]#1.00CD:127NoMer[facility] Recordson 32-03-4288Uvknqld Records [id number]#1.00CD:127[facility] DaytonProgress Note-Nurseon 86-54-3809Gvokozbn Note-NurseAt 1653--Gisela poct stated she needed a nurse in bay 12 stat. This nurse arrived to room. Patient s tated she has CP 04/11 midsternal, heaviness. Jhoana [...] patient and daughter at this time--noted as thiscould change d/t plan of care on the floor. Paperwork, follow up appointment card, pictures and printed script given to daughter at bedside. 1829--Attempted to call Dr. Talamantes--call went to voicemail. 1834--This nurse spoke with Dr. Carter (chief solution architect physician), informed Dr. Carter reason for admission and patient's room number. Dr. Aldridge at bedside at 170--Physician looked at patient EKG strip that was printed.[facility] DaytonProgress Note-Bnqey8843: pt. medicated with 0.4mg Dilaudid per PACU [...] Krishnamurthy. pts. dtr. also at bedside and updated.NormalLutheran HospitalTroponin 0 Hr.on 57-83-6767Mvgaisam I.cardiac [Mass/Vol]4.10 pg/mLLow10.10-27.10Lutheran HospitalComment on above:Result Comment: The 95% CI (Confidence Interval) PPV (Positive Predictive Value) for myocardial infarction in females is 38 pg/mL, in males 51 pg/mL. The results should be used in conjunction with clinical conditions of myocardial infarction. (Access High Sensitivity Troponin I Instructions For Use, Wilfrido Jose, January 2018)Performed By: #### [id number] #### [facility] [address], [place] [address]zQPTaz 23-68-0460AEC/1.73 sq M.predicted among blacks MDRD (S/P/Bld) [Vol rate/Area]39 mL/min/1.73 m2Low>=59[facility] Comment on above:Order Comment: Order added by Discern Expert.Result Comment: eGFR is race adjusted. AA=.Performed By: #### 0711451, 77382399, 2279677, 3941060 #### [facility] [address], [place] [address]CHH/1.73 sq M.predicted among non-blacks MDRD (S/P/Bld) [Vol rate/Area]32 mL/min/1.73 m2Low>=59Lutheran HospitalComment on above: Order Comment: Order added by Discern Expert.Result Comment: Chronic kidney disease could be indicated at eGFR's of less than 60 mL/min/1.73m2. Kidney failure is indicated at less than 15 mL/min/1.73m2.Performed By: #### 9351218, 24434977, 0734331, 3229178 #### [facility] [address] [place] [address]Crogul Summary.on 17-74-1994Rbiccd Summary.CODING DATE: 04/28/2020 FINAL [facility] STATUS: Home (Routine DC) PAYOR: Medicare ADMIT [...] Gabriela Houston CphT Date Saved: 04/28/2020 09:19 amNdutchLutheran HospitalOutpatient Surgery Discharge Instructionon 65-45-3185Rxruzjgngw Surgery Discharge Instruction [address] [address] Patient Discharge Instructions PERSON INFORMATION Name: CLAUDIA ESTRELLA Date of : 1950 Current Date: 04/28/2020 18:08:04 PHYSICIANS Admitting Physician: David Talamantes DO Discharge Diagnosis: Acute medial meniscus tear of left knee; Localized osteoarthritis of left knee SAMEER, CLAUDIA Conklin has been given the following [...] E, have received the attached patient education materials/instructions and have verbalized understanding: May we do a follow up call? Yes No I was present when discharge instructions were given Patient Signature Date Clinican/Nurse Signature Date Follow up: With: Address: When: David Talamantes [address] [place], [place] [address] [facility] (1) Comments: Keep scheduled appointment Type Location Start [facility] Surgery [facility] 05/01/2020 2:15 PM 05/01/2020 2:55 PM Confirmed Pharmacy Information: Thank you for choosing [facility] HERE ARE THE MEDICATION CHANGES [...] tablet) 1 Tablets By Mouth every day. hydrochlorothiazide-lisinopril (hydrochlorothiazide-lisinopril 12.5 mg-20 mg Tab) 1 Tablets By Mouth every day. metoprolol (metoprolol 25 mg ER Tab) 1.5 tab Oral Daily. PATIENT EDUCATION INFORMATION Instructions: [place], [place] [facility] DISCHARGE INSTRUCTIONS: KNEE ARTHROSCOPY Diet Begin with a liquid diet and advance to your normal diet as tolerated. Activity You may gradually increase your activity as tolerated. Until your first post- operative visit elevate your knee higher than your [...] side. This is important for protection of yourknee after surgery. Although you will find that [...] is comfortably tolerated. Do not forcefully bend untilyou have permission by your surgeon. Driving is [...] is the result of (more content not included)...NormalLutheran HospitalConsent for Procedure/Surgeryon 65-19-7109Tleytrp for Procedure/[id number]#1.00CD:127Normal Luther[facility] HospitalOutside Recordson 81-90-1776Uxpbqcs Records [id number]#1.00CD:127NoC[facility] HospitalPriority Order-Trina 93-07-0574Menlfsee Order-STATCommentInvalid Interpretation [facility] Lutheran HospitalComment on above:Result Comment: Received Performed at: [facility] [address] [facility] [place] [id number] MD Garrison AnaghPerformed By: #### [id number] #### [facility] [address], [place] [address]JZOX-WqG-3, NAAon 97-33-0945NZFH-CoV-2 (COVID-19) RNA JAYASHREE+probe Ql (Resp)Not detectedInvalid Interpretation CodeNot DetectedLutheran HospitalComment on above:Result Comment: This nucleic acid amplification test was developed and its performance characteristics determined by [employer]. Nucleic acid amplification tests include PCR and [...] detected) result in this assay. Performed at: [facility] [address] [facility] [place] [id number] MD Bladimir BrionesPerformed By: #### [id number] #### [facility] [address] [place], [place] [address]RB Chest 2 Viewson 71-93-2933KA Chest 2 ViewsExam Date/Time: 04/24/2020 09:34 EDT Reason for Exam: [...] Matias George M.D. Transcribed by: LUDIN Technologist: RRBNormalLutheran HospitalBUNon 37-62-8813Nnep nitrogen [Mass/Vol]36 mg/dLHigh5-21[facility] Comment on above:Performed By: #### 15155500, 7214590, 8722558, 8608866, 5572388, 5130529 ####[facility] [address] [place], [place] [address]ATO w/Indiceson 19-75-7712Rpqnjafjelo distribution width (RBC) [Ratio]13.0 %Vyaagn66.9-14.2FMercy Health St. Anne HospitalComment on above: Performed By: #### 63766543, 6751922, 6027466, 8484678, 4979610, 3201208 ####[facility] [address] [place] [address] Hematocrit (Bld) [Volume fraction]34.1 %Ffclym07.0-46.0Lutheran HospitalComment on above:Performed By: #### 42412889, 3010948, 4815424, 0286707, 2440273, 9179859 ####[address] [address]Vkukzhoznk (Bld) [Mass/Vol]11.6 g/dLLow12.0-16.0Lutheran HospitalComment on above:Performed By: #### 65691550, 4157392, 8608627, 8362007, 4253669, 1409269 ####[address] [address]PIP (RBC) [Entitic mass]29.5 dqZqarod01.0-34.0Lutheran HospitalComment on above:Performed By: #### 94195637, 4983699, 7148733, 2508883, 6945573, 6046998 ####[address] [address]QJYW (RBC) [Mass/Vol]34.1 g/kMVmejma59.4-36.0Lutheran HospitalComment on above:Performed By: #### 54406220, 6629287, 6477271, 7552446, 4642692, 3473998 ####[address] [address]VSW (RBC) [Entitic vol]86.5 jQPhlqwr78.0-100.0Lutheran HospitalComment on above:Performed By: #### 20352809, 8120139, 4531354, 4537514, 0528524, 3414717 ####[address] [address]Xpqhloal mean volume (Bld) [Entitic vol]9.4 fLNormal6.4-10.8 Lutheran HospitalComment on above:Performed By: #### 25190600, 3050734, 7227844, 5938818, 6141330, 6003642 ####[facility] [address] [place], [place] [address]Idgxfjmxw (Bld) [#/Vol]246.0 E9/L Ovngtq177.0-500.0Lutheran HospitalComment on above:Performed By: #### 44910976, 5639317, 8361255, 6999967, 9774579, 8704181 ####[facility] [address] [place], [place] [address]YHU (Bld) [#/Vol]3.9 E12/LLow 4.3-5.9Lutheran HospitalComment on above:Performed By: #### 91038163, 2205552, 7414226, 3541168, 6129354, 9120902 ####[address] [address]FOY corrected for nucl RBC Auto (Bld) [#/Vol]10.0 E9/LNormal4.0-11.0Lutheran HospitalComment on above: Performed By: #### 16121338, 8858970, 3810915, 8275916, 9817494, 4265600 ####[address] [place] [address] Consent for Treatmenton 15-90-1117Dolsnrd for Treatment [id number]#1.00CD:127NormalLutheran HospitalCreatinineon 60-56-4639Euhdwhowfs [Mass/Vol]1.6 mg/dLHigh0.5-1.3FMercy Health St. Anne HospitalComment on above:Performed By: #### 83390692, 1801342, 4695225, 9289400, 7303679, 9356866 ####[address] [place], [place] [address]Dpg Fastingon 00-96-4956Ddphoud [Mass/Vol]81 mg/dL Ksmdwq92-40BzlxfwLutheran HospitalComment on above:Performed By: #### 38043776, 9325018, 7303576, 9376936, 0912363, 0895166 ####[facility] [address] [place], [place] [address]Plunrih 81-01-7876Rxdps gap [Moles/Vol]13 mmol/LNormal6-16Lutheran HospitalComment on above: Performed By: #### 29236231, 0552603, 0996374, 7266392, 0405335, 7740854 ####[address] [place] [address] Chloride [Moles/Vol]103 mmol/SHifkjy242-623JlgdknLutheran HospitalComment on above:Performed By: #### 44200871, 2054302, 2227332, 8213739, 9293270, 6926721 ####[address] [address]XX8 [Moles/Vol]26 mmol/YZbrbib56-67ViqmooLutheran HospitalComment on above: Performed By: #### 06828812, 8163598, 9758891, 4731803, 0982181, 0204845 ####[address] [address] Potassium [Moles/Vol]3.9 mmol/LNormal3.5-5.3FMercy Health St. Anne HospitalComment on above:Performed By: #### 86613597, 2336308, 8445387, 5338182, 3862317, 4885194 ####[address] [address]Tfsowj [Moles/Vol]138 mmol/QThcmar651-080PzzcyxLutheran HospitalComment on above:Performed By: #### 10700440, 4974911, 8328728, 1457186, 5926397, 8621747 ####[address] [address]Zltyzdtjb Orderon 53-51-6932Nggymypxt Order [id number]#1.00CD:127[facility] DaytoneGFRon 48-03-1479CHH/1.73 sq M.predicted among blacks MDRD (S/P/Bld) [Vol rate/Area]39 mL/min/1.73 m2Low>=59Lutheran HospitalComment on above: Order Comment: Order added by Discern Expert.Result Comment: eGFR is race adjusted. AA=.Performed By: #### 97915700, 0717845, 2136969, 9521262, 1167537, 3789197 ####[facility] [address] [place], [place] [address]IIL/1.73 sq M.predicted among non-blacks MDRD (S/P/Bld) [Vol rate/Area]32 mL/min/1.73 m2Low>=59Lutheran HospitalComment on above: Order Comment: Order added by Discern Expert.Result Comment: Chronic kidney disease could be indicated at eGFR's of less than 60 mL/min/1.73m2. Kidney failure is indicated at less than 15 mL/min/1.73m2.Performed By: #### 20915895, 9826954, 0510583, 8184986, 5833487, 1660149 ####[facility] [address] [place], [place] [address]Qgwpufzfw Orderon 22-99-0354Ifexlyhbg [id number]#1.00CD:127[facility] DaytonPhysician Orderon 16-31-1915Rdkaffgxp Order [id number]#1.00CD:[address] [place] [address] Vital Signs Date TimeVital SignValuePerforming XnbwghnrdYmftsdfj52-63-9748 11:32-0400Body .32 cmDanigrisel Perdomo DO Work Phone: [facility]10-21-2025 11:32-0400 Body mass index (BMI) [Ratio]26.1 kg/v0Dkkkca Perdomo DO Work Phone: [phone] [place], [place] [address]10-21-2025 11:32-0400 Body hmtxchojqel92.3 [degF]John Perdomo DO Work Phone: [phone] [place], [place] 9787610-21-2025 11:32-0400 Body tzixba01.75 kgDaniel Perdomo DO Work Phone: [phone] [place], [place] [address]10-21-2025 11:32-0400 Diastolic blood tyaxwtaf74 mm[Hg]John Perdomo DO Work Phone: [phone] [place], [place] [address]10-21-2025 11:32-0400 Heart rate76 /minDaniel Perdomo DO Work Phone: [phone] [place], [place] [address]10-21-2025 11:32-0400 Respiratory rate18 /minDaniel Perdomo DO Work Phone: [phone] [place], [place] [address]10-21-2025 11:32-0400 SaO2% (BldA) [Mass fraction]93 %John Perdomo DO Work Phone: [phone] [place], [place] 97[address]10-21-2025 11:32-0400 Systolic blood pzvwiimp301 mm[Hg]John Perdomo DO Work Phone: [phone] [place], [place] 9787607-30-2025 11:37-0400 Body .32 cmDaniel Perdomo DO Work Phone: [phone] [place], [place] 9787607-30-2025 11:37-0400 Body mass index (BMI) [Ratio]26.5 kg/z4Qxicwi Perdomo DO Work Phone: [phone] [place], [place] 9787607-30-2025 11:37-0400 Body kajgmn28.6 kgDaniel Perdomo DO Work Phone: [phone] [place], [place] 9787607-30-2025 11:37-0400 Diastolic blood mm[Hg]John Bustamantering DO Work Phone: [facility]07-30-2025 11:37-0400 Heart rate72 /minDela Perdomo DO Work Phone: [facility]07-30-2025 11:37-0400 Respiratory rate18 /minDela Perdomo DO Work Phone: [facility]07-30-2025 11:37-0400 SaO2% (BldA) [Mass fraction]95 %John Perdomo DO Work Phone: [facility]07-30-2025 11:37-0400 Systolic blood tqrbosvv509 mm[Hg]John Perdomo DO Work Phone: [facility]03-04-2025 15:36-0500 Body duoyoe871.32 cmMagruder Memorial Hospital03-04-2025 15:36-0500Body mass index (BMI) [Ratio]25.6 kg/g0XvrlwmatdMagruder Memorial Hospital03-04-2025 15:36-0500Body ionmuhczbqs79.3 [degF][facility]03-04-2025 15:36-0500Body .56 kgMagruder Memorial Hospital03-04-2025 15:36-0500Diastolic blood foewjyls98 mm[Hg][facility] 09-03-2024 15:36-0500Heart rate73 /[facility] 09-03-2024 15:36-0500Respiratory rate18 /[facility] 09-03-2024 15:36-4614YpQ3% (BldA) [Mass fraction]95 %[facility]03-04-2025 15:36-0500Systolic blood avoxwgjs819 mm[Hg][facility]11-11-2024 15:30-0500Body fsuxeo441.32 cmMagruder Memorial Hospital11-11-2024 15:30-0500Body mass index (BMI) [Ratio]27.1 kg/m2 [facility]11-11-2024 15:30-0500Body wgxpacnxxez91.5 [degF][facility]11-11-2024 15:30-0500Body uxsaly31.96 kg [facility]11-11-2024 15:30-0500Diastolic blood efbcgurp21 mm[Hg][facility]11-11-2024 15:30-0500Heart rate72 /min [facility]11-11-2024 15:30-0500Respiratory rate16 /min [facility]11-11-2024 15:30-1621QsB3% (BldA) [Mass fraction]95 %[facility]11-11-2024 15:30-0500Systolic blood cfnpheci742 mm[Hg][facility]07-08-2024 13:03-0400 Body gtqjew510.32 cmMagruder Memorial Hospital07-08-2024 13:03-0400Body mass index (BMI) [Ratio]26.1 kg/a5UwkqcvlgfMagruder Memorial Hospital07-08-2024 13:03-0400Body yymdujzetcq00.6 [degF][facility]07-08-2024 13:03-0400Body adcklb96.75 kgMagruder Memorial Hospital07-08-2024 13:03-0400Diastolic blood mrfbseae49 mm[Hg][facility] 01-08-2024 13:03-0400Heart rate69 /[facility] 01-08-2024 13:03-0400Respiratory rate16 /[facility] 01-08-2024 13:03-9239FqL9% (BldA) [Mass fraction]96 %[facility]07-08-2024 13:03-0400Systolic blood bwyycyul337 mm[Hg][facility]03-25-2024 15:52-0400Body .74 kgMagruder Memorial Hospital03-25-2024 15:52-0400Diastolic blood ecinfdzs35 mm[Hg][facility]03-25-2024 15:52-0400Heart rate65 /[facility]03-25-2024 15:52-0400Systolic blood osghqxab362 mm[Hg][facility]11-28-2023 15:40-0500Body eiwoxh930.32 cmAbdul Mary Grace Other no1234ENTER Other 11-28-2023 15:40-0500Body mass index (BMI) [Ratio] 26.92 kg/i3Iuqru Mary Grace Other [facility] Other 11-28-2023 15:40-0500Body tjhfywwhhrc13 [degF][place] Mary Grace Other [facility] Other 233715-90-0122 15:40-0500Body sbnhil97.42 kgAbdul Mary Grace Other [facility] Other 11-28-2023 15:40-0500Diastolic blood pgqjusyh31 mm[Hg] [place] Mary Grace Other [facility] Other 11-28-2023 15:40-0500Respiratory rate18 /minAbdul Mary Grace Other [facility] Other 11-28-2023 15:40-6234OeR3% (BldA) [Mass fraction]97 % [place] Mary Grace Other [facility] Other 11-28-2023 15:40-0500Systolic blood mm[Hg] [place] Mary Grace Other [facility] Other 07-31-2023 15:40-0400Body .32 cmAbdul Mary Grace Other [facility] Other 07-31-2023 15:40-0400Body mass index (BMI) [Ratio] 26.83 kg/l3Qxixo Mary Grace Other [facility] Other 07-31-2023 15:40-0400Body kxkflaayxbh49.7 [degF][place] Mary Grace Other [facility] Other 07-31-2023 15:40-0400Body udfvmj26.24 kgAbdul Mary Grace Other [facility] Other 07-31-2023 15:40-0400Diastolic blood tuccmdjk71 mm[Hg] [place] Mary Grace Other [facility] Other 07-31-2023 15:40-0400Respiratory rate18 /minAbdul Mary Grace Other [facility] Other 07-31-2023 15:40-2383BqH7% (BldA) [Mass fraction]98 % [place] Mary Grace Other [facility] Other 07-31-2023 15:40-0400Systolic blood nohbqqzu835 mm[Hg] [place] Mary Grace Other [facility] Other 02-28-2023 14:40-0500Body arofyz161.32 cmAbdul Mary Grace Other [facility] Other 02-28-2023 14:40-0500Body mass index (BMI) [Ratio] 26.29 kg/d2Bzutj Mary Grace Other [facility] Other 02-28-2023 14:40-0500Body fhflixmcaun86.6 [degF][place] Mary Grace Other [facility] Other 02-28-2023 14:40-0500Body nwunor11.06 kgAbdul Mary Grace Other [facility] Other 02-28-2023 14:40-0500Diastolic blood gbwqgqok31 mm[Hg] [place] Mary Grace Other [facility] Other 02-28-2023 14:40-0500Respiratory rate18 /minAbdul [facility] 02-28-2023 14:40-2461MlS7% (BldA) [Mass fraction]96 % [place] [facility] 02-28-2023 14:40-0500Systolic blood xhnrgubk626 mm[Hg] [place] Mary Grace Other [facility] Other 11-28-2022 11:40-0500Body vaqwaf517.32 cmAbdul Mary Grace Other [facility] Other 11-28-2022 11:40-0500Body mass index (BMI) [Ratio] 27.25 kg/j6Lrhsd Mary Grace Other [facility] Other 11-28-2022 11:40-0500Body apkkhirwlaa38.2 [degF][place] Mary Grace Other [facility] Other 11-28-2022 11:40-0500Body dpsrgu94.15 kgAbdul Mary Grace Other no1234[facility] Other 11-28-2022 11:40-0500Diastolic blood mttidphp43 mm[Hg] [place] Mary Grace Other [facility] Other 11-28-2022 11:40-8131CuN8% (BldA) [Mass fraction]97 % [place] Mary Grace Other [facility] Other 11-28-2022 11:40-0500Systolic blood culwouaz297 mm[Hg] [place] Mary Grace Other [facility] Other 07-28-2022 12:20-0400Body jhenew159.32 cmAbdul Mary Grace Other [facility] Other 07-28-2022 12:20-0400Body mass index (BMI) [Ratio] 26.83 kg/w5Fzrxu Mary Grace Other [facility] Other 07-28-2022 12:20-0400Body aggaoomhpis43 [degF][place] Mary Grace Other [facility] Other 07-28-2022 12:20-0400Body .24 kgAbdul Mary Grace Other [facility] Other 07-28-2022 12:20-0400Diastolic blood rwikauld35 mm[Hg] [place] Mary Grace Other [facility] Other 07-28-2022 12:20-0400Respiratory rate18 /minAbdul Mary Grace Other [facility] [employer] Other 07-28-2022 12:20-4761CrZ3% (BldA) [Mass fraction]96 % [place] Mary Grace Other [employer] Other 07-28-2022 12:20-0400Systolic blood mm[Hg] [place] Mary Grace Other [employer] Other 03-21-2022 16:00-0400Body pfcaje738.32 cmAbdul Mary Grace Other [facility] Other 03-21-2022 16:00-0400Body mass index (BMI) [Ratio] 27.42 kg/o4Cdzmf Mary Grace Other [facility] Other 03-21-2022 16:00-0400Body xeovuxtaqgx62.6 [degF][place] Mary Grace Other [employer] Other 03-21-2022 16:00-0400Body cporpc38.51 kgAbdul Mary Grace Other [employer] Other 03-21-2022 16:00-0400Diastolic blood nkepghqc86 mm[Hg] [place] Mary Grace Other [facility] Other 03-21-2022 16:00-0400Respiratory rate18 /minAbdul Mary Grace Other [facility] Other 03-21-2022 16:00-2534VeB9% (BldA) [Mass fraction]97 % [place] Mary Grace Other [facility] Other 03-21-2022 16:00-0400Systolic blood lqubarhn291 mm[Hg] [place] Mary Grace Other [facility] Other 11-16-2021 15:40-0500Body .32 cmAbdul Mary Grace Other [facility] Other 11-16-2021 15:40-0500Body mass index (BMI) [Ratio]26.5 kg/x3Ybpir Mary Grace Other [facility] Other 8-691209-47939352-41-3084 15:40-0500Body fdbsxqajswe09.2 [degF][place] Mary Grace Other [facility] Other [id number] 15:40-0500Body ebmogi70.52 kgAbdul Mary Grace Other [facility] Other 11-16-2021 15:40-0500Diastolic blood pjgsqfiw87 mm[Hg] [place] Mary Grace Other [facility] Other 11-16-2021 15:40-0500Respiratory rate18 /minAbdul Mary Grace Other [facility] Other 11-16-2021 15:40-6208IlA6% (BldA) [Mass fraction]97 % [place] Mary Grace Other [facility] Other 11-16-2021 15:40-0500Systolic blood wmhkroxr749 mm[Hg] [place] Mary Grace Other [facility] Other Encounters Encounter DateEncounter TypeCare ProviderFacilityStart: 04-22-2025 End: 14-19-7472ewvsbqnzweLjzzuw A Perdomo DO Work Phone: [phone]-[facility] SandStart: 04-22-2025 End: 71-78-1016Tyyigcx encounter procedureGeneva Jenkins MD-[facility] Work Phone: Start: 85-20-6061Gkx-patient / Non-visitGeneva Jenkins MD -[facility] [place] Work Phone: Start: 04-15-2025 End: 57-24-6246iadzhtthmpDJSJERR [facility]art: 04-07-2025 End: 18-25-9895bqmhfejeigRTREJD [facility] Start: 03-23-2025 End: 74-03-7097JeyflqPrutolcu D Zahler DO Work Phone: [facility] EyeComment on above:Primary open angle glaucoma (POAG) of both eyes, mild stageStart: 01-29-2025 End: 79-01-3143glmagwmmciRhzpdh A Perdomo DO Work Phone: [facility] Work Phone: Start: 01-29-2025 End: 19-59-3060Yawrscw encounter procedureGeneva Jenkins MD-[facility] Nephrology [place] Work Phone: Start: 11-48-7595Cqf-patient / Non-visitGeneva Jenkins MD -[facility] Work Phone: Start: 11-26-2024 End: 11-58-4579Ombbgaansley Teran DO Work Phone: noms OPHTStart: 11-26-2024 End: 82-97-8616Lekqoransley Teran DO Work Phone: noms NB OPHTStart: 11-26-2024 End: 32-17-9064kvmvfbxdzrKLJMBBUONiecy Evans AvailableStart: 09-16-2024 End: 11-13-2551kdeptjyxpuZAQNGL [facility] Start: 09-03-2024 End: 49-91-9397doauynrgzvYkvcahsfnSt. [facility]'s Medical Center Work Phone: Start: 09-03-2024 End: 67-83-3760Umgngvm encounter procedureWashington [facility] Work Phone: Start: 67-49-7329Bhx-patient / Non-visitWashington Regional Medical Center [facility] Work Phone: Start: 05-15-2024 End: 61-86-5771Jmjvdo flowsheetMirta Avileser DO Work Phone: noms NB OPHTStart: 05-15-2024 End: 80-77-5499Lzalcg flowsheetMirta Cruzhler DO Work Phone: noms NB OPHTStart: 05-15-2024 End: 44-96-1221gbfcqwnalbYTDBNCRV D ZAHLERNot AvailableStart: 05-13-2024 End: 09-14-9859dxyvuxkoahFtnrxehthSt. Mary's Medical Center Work Phone: Start: 05-13-2024 End: 99-00-6027Bottpph encounter procedureWashington Regional Medical Center [facility] Nephrology [place] Work Phone: Start: 36-68-2122Hlp-patient / Non-visitWashington Regional Medical Center [facility] Work Phone: Start: 01-08-2024 End: 30-80-3691vdcvyjfncwLkzcsjacySt. Mary's Medical Center Work Phone: Start: 01-08-2024 End: 81-29-2654Mhmgstv encounter procedureWashington Regional Medical Center [facility] Neph[facility] Work Phone: Start: 56-90-5537Ukb-patient / Non-visitWashington Regional Medical Center [facility] Work Phone: Start: 09-25-2023 End: 47-34-2432yebqvactyiTvhhctttwParkview Health Work Phone: Start: 09-25-2023 End: 91-85-1555Qtthczy encounter procedureWashington Regional Medical Center [facility] Neph[facility] Work Phone: Start: 08-08-2023 End: 83-76-2625yzgvteqbgfNnpez Mary Grace Other no1234ENTER Other Start: 52-43-9499Yqsuvyunu encounterAbdul QadirFPG NephrologyStart: 07-11-2023 End: 98-59-7714mvrvkeoaqwStuvo Mary Grace Other [facility] Other Start: 19-12-9217Hquqjtwgn encounterAbdul QadirFPG NephrologyStart: 05-30-2023 End: 59-41-7947aitdpmepdcMlcvo Mary Grace Other [facility] Other Start: 92-28-1304Tlmfnr outpatient visit 25 minutes [place] QadirFPG NephrologyStart: 05-23-2023 End: 38-33-5783qylyneguapJyuxv Mary Grace Other [facility] Other Start: 46-50-8911Mdtdskhbn encounterAbdul QadirFPG NephrologyStart: 01-30-2023 End: 71-14-4758flnpjlhzufDntud Mary Grace Other no1234ENTER Other Start: 11-96-3535Ddorqwukf by computer linkAbdul Mary Grace FPG NephrologyStart: 44-39-4732Quhemc outpatient visit 25 minutesAbdul QadirFPG NephrologyStart: 10-27-2022 End: 99-91-1052ecuwxsiwdhLgpke Mary Grace Other [facility] [employer] Other Start: 66-26-1527Jpllrhioe encounterAbdul QadirFPG NephrologyStart: 10-26-2022 End: 71-46-0955lvosmcollmXB DANIEL A HERRINGFacility:S9Moygz: 08-30-2022 End: 64-14-8327ormoclxlonDzoaf Mary Grace Other [facility] [employer] Other Start: 87-30-8915Fztelx outpatient visit 25 minutes [place] QadirFPG NephrologyStart: 08-24-2022 End: 60-45-3406ldkmglyudiXE DANIEL A HERRINGFacility:T6Sfgaq: 08-23-2022 End: 65-81-2981jvggikivcmODIEU QADIRFacility:G8Nthfy: 06-13-2022 End: 32-80-9022rwlruymerbCB KARTHIK MENDEZUKARBELFacility:O2Avfrt: 06-10-2022 End: 10-66-9824xcdpkysvhtZE KARTHIK MENDEZUKARBELFacility:Y6Bxkww: 06-02-2022 End: 36-15-6149dtknmtadksOR KARTHIK GERMAINRBELFacility:Z8Onmkl: 06-01-2022 End: 85-37-0792bdmzhhnoqjOL JOHN Mcdonough HERRINGFacility:W4Rpybj: 05-30-2022 End: 06-76-6402pzwkoruuixBfifq Mary Grace Other [employer] Other Start: 54-77-7984Kwyele outpatient visit 25 minutes [place] QadirFPG NephrologyStart: 05-27-2022 End: 70-55-4109kbxxbvhhhcDF DANIEL A HERRINGFacility:N8Yovnd: 05-23-2022 Telephone encounterAbdul QadirFPG NephrologyStart: 05-23-2022 End: 99-06-5061fzpqlklygiVH JOHN Mcdonough [employer] Other Start: 05-14-2022 End: 78-84-2198fxqwtkwuqyVNXCDPQ BOESFacility:O3Xtiwd: 05-12-2022 End: 26-39-1659nejzfrdpkfIrtkn Mary Grace Other no1234ENTER Other Start: 75-51-2521Sezsaefti encounterAbdul QadirFPG NephrologyStart: 05-11-2022 End: 36-06-8172eqwowmdduuLKFELVH BOESFacility:O2Gvlmk: 03-17-2022 End: 87-59-7306gwfyygcwvuCV DANIEL A HERRINGFacility:E8Tedvf: 01-27-2022 End: 26-65-1297bsribapnpdCkynh Mary Grace Other no1234ENTER Other Start: 13-76-8875Xeinnd outpatient visit 25 minutes [place] QadirFPG NephrologyStart: 01-21-2022 End: 49-68-6613xzlnnyirikYK JOHN PERDOMOFacility:Q3Motwv: 01-17-2022 End: 26-59-8190miuptttudeIM DANIEL A HERRINGFacility:O1Heovp: 01-13-2022 End: 90-54-4519cyitzspwzyRejcz Mary Grace Other no1234ENTER Other Start: 23-15-5750Vtlmcqdbu encounterAbdul QadirFPG NephrologyStart: 18-59-3816Rxgldzxff encounterAbdul QadirFPG NephrologyStart: 12-16-2021 End: 17-82-4278qohgvtpyalBX JOHN Mcdonough [employer] Other Start: 12-09-2021 End: 90-78-1472wfldavmdwtMJDIVV HERRINGFacility:UTMCStart: 12-08-2021 End: 33-90-0873dnypqrhgeyFujar Mary Grace Other no1234ENTER Other Start: 72-72-1738Fvngbimcr encounterAbdul QadirFPG NephrologyStart: 12-07-2021 End: 39-95-7062osmehkxavkGO JOHN Mcdonough HERRINGFacility:G6Fassn: 12-06-2021 End: 88-63-6516caldxpxrnrYV JOHN A HERRINGFacility:L4Wrvhv: 12-01-2021 End: 88-91-5743utlsauhvwtBD JOHN A HERRINGFacility:A9Ycjbl: 11-19-2021 End: 17-05-2897ojzmbwdjjiOT JOHN Mcdonough HERRINGFacility:R1Xiufi: 11-01-2021 End: 50-12-1229amdsxgbjtnOcnkb Mary Grace Other [facility] [employer] Other Start: 94-35-3874Sxmxevfev by computer linkAbdul Mary Grace FPG NephrologyStart: 10-28-2021 End: 94-23-3940cegvtvvezdReord Mary Grace Other [facility] Other Start: 19-37-6724Wxfhlibjh encounterAbdul QadirFPG NephrologyStart: 10-13-2021 End: 10-01-7635lanatydxbnKiboq Mary Grace Other [employer] Other Start: 90-82-9691Lkedreayn by computer linkAbdul Mary Grace FPG NephrologyStart: 10-06-2021 End: 27-14-0968spfeukeecnXqecn Mary Grace Other [facility] Other Start: 01-91-8867Ilvgtkryp encounterAbdul QadirFPG NephrologyStart: 09-21-2021 End: 14-93-3784lpgtzvyrozLvjsc Mary Grace Other no1234[facility] Other Start: 94-85-3430Acrvqwbba encounterAbdul QadirFPG NephrologyStart: 09-20-2021 End: 80-34-9667igwgrozjduPhtvv Mary Grace Other no1234[facility] Other Start: 57-13-8584Jpmvei outpatient visit 25 minutes [place] QadirFPG NephrologyStart: 08-01-2021 End: 69-20-4206dgubgenaumGlyhm Mary Grace Other no1234ENTER Other Start: 85-73-5258Ytdftzymf by computer linkAbdul Mary Grace FPG NephrologyStart: 07-18-2021 End: 54-39-9162mcydypopfxEmosp Mary Grace Other no1234ENTER Other Start: 32-11-8537Cyhanfppc by computer linkAbdul Mary Grace FPG NephrologyStart: 05-18-2021 End: 87-10-8404ayfsbfofiyDxzpn Mary Grace Other no1234ENTER Other Start: 85-95-6681Ejivav outpatient visit 25 minutes [place] QadirFPG [facility]phrology Procedures DateProcedureProcedure DetailPerforming ClinicianStart: 58-11-0465Xhvehk field xm uni/bi w/interp extended examJothania Teran DO Work Phone: Start: 11-26-2024 End: 90-53-3974Aorih medical xm&eval comprhnsv estab pt 1/>Corneal scar, right eyeMirta Teran DO Work Phone: comment on above:Corneal scar, right eye (Primary Dx); Dry eyes; 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 (CMS/HCC); Primary open angle glaucoma (POAG) of both eyes, mild stageStart: 05-15-2024 End: 40-21-7888Glzgwzpooake ophthalmic imaging optic nerveMirta Teran DO Work Phone: Start: 05-15-2024 End: 49-62-0905Pkige medical xm&eval comprhnsv estab pt 1/>Primary open angle glaucoma (POAG) of both eyes, mild stage (CMS/HCC)Mirta Teran DO Work Phone: comment on above:Primary open angle glaucoma (POAG) of both eyes, mild stage (CMS/HCC) (Primary Dx); 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 (CMS/HCC); Corneal scar, right eye; Dry eyes Plan of Treatment DateCare ActivityDetailAuthorStart: 44-92-8908Ueagxthd screeningDiabetes: Retinopathy ScreeningNOOK HealthcareStart: 06-04-2025 End: 08-85-8617Uhnvtly encounter syodustsj69/03/2025 1:15 PM EST Office Visit [facility] [address] [place] [address] Mirta Teran, [address] [place] [address] [facility] EyeStart: 05-15-2025 Glaucoma screeningDiabetes: Retinopathy ScreeningNOOK HealthcareStart: 59-40-1120Tmfgtovum vaccinationPRIMARY CHILDREN'S [facility]OS[facility]ITAL HealthcareStart: 11-26-2024 End: 85-78-2110Plazgnp encounter procedureNOMS NB OPHTComment on above:Arrived Start: 20-38-6362Daaqsfqba vaccinationInfluenza Vaccine (#1)[facility] Start: 95-75-7433Qkvtqymqsq A1c measurementDiabetes: Hemoglobin G9GECNINortheast Missouri Rural Health NetworkStart: 24-60-0202Jnumnalda for malignant neoplasm of breastMammogram [facility] NetworkStart: 33-66-6156Rkzywftoyyrk Vaccine: 65+ Years (1 of 2 - PCV) Pneumococcal Vaccine: 65+ Years (1 of 2 - PCV)[facility] HealthcareStart: 1970 Urine screening for proteinDiabetes: Urine Protein ScreeningNortheast Missouri Rural Health Network Start: 42-16-2352Nvyaqtifafox Vaccine: 65+ Years (1 of 2 - PCV)Pneumococcal Vaccine: 65+ Years (1 of 2 - PCV)[facility] HealthcareStart: 1951Medicare Annual Wellness (AWV)Medicare Annual Wellness (AWV)[facility] HealthcareStart: 1951 Screening for malignant neoplasm of colonNOOK HealthcareImmunofixation for Urine [facility] 1999 panel - Serum or Plasma [facility] HospitalRen[facility] function 1999 panel - Serum or Plasma [facility] HospitalRenal function 1999 panel - Serum or Plasma [facility] HospitalRen[facility] function 1999 panel - Serum or Plasma [facility] HospitalRen[facility] function 1999 panel - Serum or Plasma [facility] HospitalRen[facility] function 1999 panel - Serum or Plasma [facility] Immunizations Immunization DateImmunizationNotesCare ProviderFacilityNEGATED: Highlighted row has not occurred!23-28-1165lqmhkotjs, high dose seasonal, preservative-free Patient ObjectionAbdjennifer Jenkins Other [facility] [employer] Other Payers DatePayer CategoryPayerPolicy [id number] Health InsuranceMEDICAL MUTUAL [id number] 2016MedicareMEDICARE .[id number] [id number] [id number] 2.16.840.1.746422.3.579.[id number] 2.16.840.1.474713.3.57[id number] 2.16.840.1.505199.3.57[id number] 2.16.840.1.558082.3.579.[id number] 2.16.840.1.696362.3.57[id number] 2.16.840.1.624126.3.579.2.73567-57-7404Odivryy2178080 2.16.840.1.561345.3.579.2.80436-75-0715Rramjhi0159281 2.16.840.1.161343.3.579.2.92496-19-6455Xotvfjf2728156 2.16.840.1.400214.3.579.[id number] 2.16.840.1.473976.3.579.2.02841-23-0061Gdntrof1347150 2.16.840.1.241398.3.579.2.57461-36-4051Vmydtoe5324456 2.16.840.1.135214.3.579.[id number] 2.16.840.1.264562.3.579.2.11486-90-0233Xgthdiz6899695 2.16.840.1.690852.3.57[id number] 2.16.840.1.601893.3.579.[id number] 2.16.840.1.533182.3.579.2.62323-93-7853Bdbukdm3304413 2.16.840.1.442155.3.579.2.64703-26-2520Tfgsmte7299544 2.16.840.1.907352.3.579.2.67279-20-5325Oufhytk5566871 2.16.840.1.428667.3.579.2.83154-43-2962Ylqeiif7400530 2.16.840.1.835395.3.579.2.2[id number] 2.16.840.1.375829.3.579.2.3[id number] 2.16.840.1.727736.3.579.[id number] 2.16.840.1.760520.3.579.2.1259Self-paySelf Pay [id number] [id number] Social History DateTypeDetailFacilityUnknown if ever smokedNosaint john's hospital [employer] Other Start: 07-39-3714Xtu Assigned At [facility] [employer] Other Start: 11-23-2017 End: 14-91-0050Dknkpur smoking status NHISNever smoked tobacco (finding) [facility]: 70-85-1282Zhg Assigned At [facility] Ohiotart: 05-13-2024 End: 26-56-4660WenAyymgj (finding)[facility]: 39-99-6772Ataizci use and exposureSmokeless tobacco non-userNOMS Healthcare Start: 04-39-5335Bpcbavrzs beverage intakeLifetime non-drinker (finding)[facility] HealthcareStart: 88-38-6540Wvzncny of Social functionNOMS HealthcareStart: 34-72-8617Xvarklj Commentcaffeine intake: 1-2 cups per day soda/pop 1-2 cans per weekNOOK HealthcareStart: 70-52-2979Louvjl identityIdentifies as female gender (finding)[facility] Clinical Notes 04-27-2020 to 04-15-2025 Note Date & GlhdZgspOpvkprao68-33-1185 NoteUT [facility]iology - [facility]ive Chief Complaint Patient presents with Follow-up Patient is here today for a follow up [facility] admission. Patient states she feels better but [...] is symptomatic with that. After visit with wv on 08/04/2023 and due to orthostatic hypotension and no evidence of leg edema I reduced her Bumex but she ended up having significant volume overload and was admitted to the hospital for diuresis. She did well with intravenous diuretic therapy. Her diuretic therapy was adjusted. At last visit with wv on 03/29/2024 and due to low blood [...] Rate and Rhythm: No (more content not included)...[facility]10-06-2025 NoteUT Cardiology - [facility] Subjective Claudia Estrella is a [...] warm and dry. Neurologi (more content not included)...[facility] 01-29-2025 Evaluation note* Diagnosis Onset Date Resolution Status Admit Date Anemia of renal disease acuteJuly 2024 11:35amCKD (chronic kidney disease) stage 4, GFR 15-29 ml/minacuteJuly 2024 11:35amHyperlipidemiaacuteJuly 2024 11:35am Hypertensive chronic kidney disease with stage 1 through stage 4 chronic kiacute Tammie 2024 11:35amHyperuricemiaacuteJuly 2024 11:35amHypokalemiaacute January 29, 2025 11:35amMicroscopic hematuriaacuteJuly 2024 11:35am Secondary hyperparathyroidismacuteJuly 2024 11:35amType 2 diabetes mellitus with diabetic chronic kidney diseaseacuteJuly 2024 11:35amAcute kidney injuryacuteOct2024 11:30amAnemia of renal diseaseacuteApril 22, 2025 11:30amCKD (chronic kidney disease) stage 4, GFR 15-29 ml/minacute April 22, 2025 11:30amHyperlipidemiaacuteApril 22, 2025 11:30am Hypertensive chronic kidney disease with stage 1 through stage 4 chronic kiacute April 22, 2025 11:30amHyperuricemiaacuteApril 22, 2025 11:30am HypokalemiaacuteApril 22, 2025 11:30amMicroscopic hematuriaacuteOct2024 11:30amSecondary hyperparathyroidismacuteApril 22, 2025 11:30am Type 2 diabetes mellitus with diabetic chronic kidney diseaseacuteApril 22, 2025 11:30am [facility] Work Phone: 1(418) 940-233505-27-2025 NoteRight Eye Reliability was poor. Progression has been stable. Foveal threshold was normal. Findings include superior nasal step defect, inferior nasal step defect, central scotoma. Left Eye Reliability was borderline. Progression has been stable. Foveal threshold was normal. Findings include superior arcuate defect, inferior arcuate defect, central scotoma.[facility] NetworkNplyapgmat81-45-6519 History of Present illness Narrative* Mirta Teran, - 11/26/2024 2:00 PM EDT Images from the original note were not included. Assessment/Plan Diagnoses and all orders for this visit: 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 (CMS/HCC) - Managed by Dr. Americo Dyer. Discussed the pathophysiology of diabetes and its effect on the eye.Stressed the importance of strong glucose control. Advised of importance of at least yearly dilatedexaminations, but to contact us immediately for any [...] artificial tears were recommended. documented in this encounterNortheast Missouri Rural Health NetworkPjlejhhmiq65-43-9838 NoteUT Cardiology - [facility] Subjective Claudia Estrella is a 74 y.o. year old female patient being seen for follow up 6 mo follow up CAD, chronic diastolic heart failure, and hypertension. Had labs last month for nephrology. She only had 1 tablet left of metoprolol (50mg) and took it yesterday. Hasn't had any today. She was told by [facility] that she can't get it until [...] Other Erythromycin Base Hydromorphone (more content not included)...[facility]11-13-2024 Note Right Eye Quality was good. Scan locations included subfoveal. Progression has been stable. Findings include abnormal foveal contour, intraretinal fluid, subretinal fluid. Left Eye Quality was good. Scan locations included subfoveal. Progression has been stable. Findings include abnormal foveal contour. Notes Area of atrophy w/ retinal pigment epithelium (RPE) [facility] 05-15-2024 History of Present illness Narrative* Mirta Teran, - 05/15/2024 1:30 PM EST Images from the original note were not included. Assessment/Plan Diagnoses and all orders for this visit: 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 (CMS/HCC) - Managed by Dr. Americo Dyer. Discussed the pathophysiology of diabetes and its effect on the eye.Stressed the importance of strong glucose control. Advised of importance of at least yearly dilatedexaminations, but to contact us immediately for any [...] artificial tears were recommended. documented in this encounterNortheast Missouri Rural Health [id number] Evaluation note* Encounter Date Diagnosis Assessment Notes [...] to slow down the progression of CKD. May,en hy kid w cr kid I-IV (ICD-10 - I12.9)Blood pressure is high today but usually controlled and she appears to be euvolemic. Continue Hydral azine. I have advised him to comply with 50 ounces of fluid. Continue current dose of the Bumex andmetolazone. I have advised him to monitor blood pressure at home and call office if it stays above 140/90 mmHg May,iabetes mellitus with chronic kidney disease (ICD-10 - E11.22)Her blood sugars are within acceptable range. Continue to follow with PCP for DM management. She iscurrently not on TOLU or ARB due to the worsening renal function. I have explained to her due to heradvanced CKD she may not benefit SGLT 2 inhibitors inhibitors including Farxiga Jardiance or Invokana. May,Secondary hyperparathyroidism (ICD-10 - N25.81)She had secondary hyperparathyroidism due to the vitamin D deficiency and hyperphosphatemia. I haveadvised low phosphorus diet. I have advised her to Continue vitamin D every other week. May,Hyperuricemia (ICD-10 - E79.0)She has hyperuricemia due to the advanced CKD. Continue current dose of the allopurinol. May,Microscopic hematuria (ICD-10 - R31.29)She has microscopic hematuria and was seen by Dr. Kwon. She underwent Cystoscopy and reported that it was unremarkable. May,Hypokalemia (ICD-10 - E87.6)She has hypokalemia due to the diuretic induced renal potassium wasting. Continue potassium chloride 40 mEq p.o. 3 times daily. She is allergic to his spironolactone unfortunately and cannot be given. I have advised her to take additional 40 mEq on the days when she takes metolazone. May,Iron deficiency (ICD-10 - E61.1)Hemoglobin is within the acceptable range but has adequate Iron stores. Continue oral iron. [facility] Other 07-31-2023 Evaluation note* Encounter Date Diagnosis [...] to slow down the progression of CKD. 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 Continue Hydralazine. I have advised him to comply with 50 ounces of fluid. Continue current dose of the Bumex and metolazone. I have advised him to monitor blood pressure at home and call office if it stays above 140/90 mmHg Dec,iabetes mellitus with chronic kidney disease (ICD-10 - E11.22)Her blood sugars are within acceptable range. Continue to follow with PCP for DM management. She iscurrently not on TOLU or ARB due to the worsening renal function. I have explained to her due to heradvanced CKD she may not benefit SGLT 2 inhibitors inhibitors including Farxiga Jardiance or Invokana. Dec,Secondary hyperparathyroidism (ICD-10 - N25.81)She had secondary hyperparathyroidism due to the vitamin D deficiency and hyperphosphatemia. I haveadvised low phosphorus diet. I have advised her to Continue vitamin D every other week. Dec,Hyperuricemia (ICD-10 - E79.0)She has hyperuricemia due to the advanced CKD. Continue current dose of the allopurinol. Dec,Microscopic hematuria (ICD-10 - R31.29)She has microscopic hematuria and was seen by Dr. Kwon. She underwent Cystoscopy and reported that it was unremarkable. Dec,Hypokalemia (ICD-10 - E87.6)She has hypokalemia due to the diuretic induced renal potassium wasting. Continue potassium chloride 40 mEq p.o. 3 times daily Dec,nemia of renal disease (ICD-10 - D63.1)Hemoglobin is within the acceptable range but has adequate Iron stores. Continue oral iron. [facility] Other 02-28-2023 Evaluation note* Encounter Date Diagnosis [...] to slow down the progression of CKD. 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 Continue Hydralazine. I have advised him to comply with 50 ounces of fluid. Continue current dose of the Bumex and metolazone. I have advised him to monitor blood pressure at home and call office if it stays above 140/90 mmHg Aug,iabetes mellitus with chronic kidney disease (ICD-10 - E11.22)Her blood sugars are within acceptable range. Continue to follow with PCP for DM management. She iscurrently not on TOLU or ARB due to the worsening renal function. Aug,Secondary hyperparathyroidism (ICD-10 - N25.81)She had secondary hyperparathyroidism due to the vitamin D deficiency and hyperphosphatemia. I haveadvised low phosphorus diet. I have advised her to Continue vitamin D every other week. Aug,Hyperuricemia (ICD-10 - E79.0)She has hyperuricemia due to the advanced CKD. Continue current dose of the allopurinol. Aug,Microscopic hematuria (ICD-10 - R31.29)She has microscopic hematuria and was seen by Dr. Kwon. She underwent Cystoscopy and reported that it was unremarkable. Aug,Hypokalemia (ICD-10 - E87.6)She has hypokalemia due to the diuretic induced renal potassium wasting. Continue potassium chloride 40 mEq p.o. 2 times daily Aug,nemia of renal disease (ICD-10 - D63.1)Hemoglobin is within the acceptable range but has low Iron stores. Continue oral iron. She will need a GI work-up if has not been done by the PCP in the recent past. Will defer this to the PCP. [facility] Other 11-28-2022 Evaluation note* Encounter Date Diagnosis [...] to slow down the progression of CKD. 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 Continue Hydralazine. I have advised him to comply with 50 ounces of fluid. Continue current dose of the Bumex and metolazone. I have advised him to monitor blood pressure at home and call office if it stays above 140/90 mmHg May,iabetes mellitus with chronic kidney disease (ICD-10 - E11.22)Her blood sugars are within acceptable range. Continue to follow with PCP for DM management. She iscurrently not on TOLU or ARB due to the worsening renal function. May,econdary hyperparathyroidism (ICD-10 - N25.81)She had secondary hyperparathyroidism due to the vitamin D deficiency and hyperphosphatemia. I haveadvised low phosphorus diet. I have advised her to decrease her vitamin D every other week. May,Hyperuricemia (ICD-10 - E79.0)She has hyperuricemia due to the advanced CKD. Continue current dose of the allopurinol. May,Microscopic hematuria (ICD-10 - R31.29)She has microscopic hematuria and was seen by Dr. Kwon. She underwent Cystoscopy and reported that it was unremarkable. May,Hypokalemia (ICD-10 - E87.6)She has hypokalemia due to the diuretic induced renal potassium wasting. Continue potassium chloride 40 mEq p.o. 2 times daily May,Iron deficiency (ICD-10 - E61.1)Hemoglobin is within the acceptable range and has an adequate Iron stores. Continue oral iron. [facility] Other 11-21-2022 Evaluation note* Encounter Date Diagnosis Assessment Notes Treatment Notes Treatment Clinical Notes May, CKD (chronic kidney disease) stage 4, GFR 15-29 ml/min (ICD-10 - N18.4) [facility] On Call Other 07-28-2022 Evaluation note* Encounter Date Diagnosis [...] to slow down the progression of CKD. 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 Continue Hydralazine. I have advised him to comply with 50 ounces of fluid. Continue current dose of the Lasix and metolazone. I have advised him to monitor blood pressure at home and call office if it stays above 140/90 mmHg Dec,iabetes mellitus with chronic kidney disease (ICD-10 - E11.22)Her blood sugars are within acceptable range. Continue to follow with PCP for DM management. She iscurrently not on TOLU or ARB due to the worsening renal function. Dec,econdary hyperparathyroidism (ICD-10 - N25.81)She had secondary hyperparathyroidism due to the vitamin D deficiency and hypophosphatemia. I have advised low phosphorus diet. Her PTH, calcium and vitamin D are now within the goal with oral vitamin D. Dec,Hyperuricemia (ICD-10 - E79.0)She has hyperuricemia due to the advanced CKD. Continue current dose of the allopurinol. Dec,Microscopic hematuria (ICD-10 - R31.29)She has microscopic hematuria and was seen by Dr. Kwon. She underwent Cystoscopy and reported that it was unremarkable. Dec,Hypokalemia (ICD-10 - E87.6)She has hypokalemia due to the diuretic induced renal potassium wasting. Continue potassium chloride 40 mEq p.o. 2 times daily Dec,Iron deficiency (ICD-10 - E61.1)Hemoglobin is within the acceptable range and has an adequate Iron stores. Continue oral iron. [facility] Other 03-22-2022 Evaluation note* Encounter Date Diagnosis Assessment Notes Treatment Notes Treatment Clinical Notes Aug, Hypokalemia (ICD-10 - E87.6) [facility] Other 03-21-2022 Evaluation note* Encounter Date Diagnosis [...] to slow down the progression of CKD. 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 He appears to be euvolemic. I have prescribed hydralazine for better blood pressure control. I have advised him to comply with 50 ounces of fluid. Continue current dose of theBumex and metolazone. I have advised him to monitor blood pressure at home and call office if it stays above 140/90 mmHg Aug,iabetes mellitus with chronic kidney disease (ICD-10 - E11.22) Her blood sugars are within acceptable range. Continue to follow with PCP for DM management. She iscurrently not on TOLU or ARB due to the worsening renal function. Aug,econdary hyperparathyroidism (ICD-10 - N25.81) She had secondary hyperparathyroidism due to the vitamin D deficiency and hypophosphatemia. I have advised low phosphorus diet. Her PTH, calcium and vitamin D are now within the goal with oral vitamin D. Aug,Hyperuricemia (ICD-10 - E79.0) She has hyperuricemia due to the advanced CKD. Continue current dose of the allopurinol. Aug,Microscopic hematuria (ICD-10 - R31.29) She has microscopic hematuria and was seen by Dr. Kwon. She underwent Cystoscopy and reported that it was unremarkable. Aug,Hypokalemia (ICD-10 - E87.6) She has hypokalemia due to the diuretic induced renal potassium wasting. Continue potassium chloride 40 mEq p.o. 2 times daily Aug,Iron deficiency (ICD-10 - E61.1) Hemoglobin is within the acceptable range and has an adequate Iron stores. Continue oral iron. [facility] Other 01-16-2022 Evaluation note* Encounter Date Diagnosis Assessment Notes Treatment Notes Treatment Clinical Notes Jul, Hyperuricemia (ICD-10 - E79.0) [facility] On Call Other 11-16-2021 Evaluation note* Encounter Date Diagnosis [...] to slow down the progression of CKD. 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 He appears to be euvolemic. I have advised him to comply with 50 ounces of fluid. Continue current dose of the Bumex and metolazone. I have advised him to monitor blood pressure at home and call office if it stays above 140/90 mmHg May,iabetes mellitus with chronic kidney disease (ICD-10 - E11.22) Her blood sugars are within acceptable range. Continue to follow with PCP for DM management. She iscurrently not on TOLU or ARB due to the worsening renal function. May,econdary hyperparathyroidism (ICD-10 - N25.81) She had secondary hyperparathyroidism due to the vitamin D deficiency and hypophosphatemia. I have advised low phosphorus diet. Her PTH, calcium and vitamin D are now within the goal with oral vitamin D. May,Hyperuricemia (ICD-10 - E79.0) She has hyperuricemia due to the advanced CKD. Continue current dose of the allopurinol. May,Microscopic hematuria (ICD-10 - R31.29) She has microscopic hematuria and was seen by Dr. Kwon. She underwent Cystoscopy and reported that it was unremarkable. May,Hypokalemia (ICD-10 - E87.6) She has hypokalemia due to the diuretic induced renal potassium wasting. Increase potassium chloride 40 mEq p.o. 2 times daily May,Iron deficiency (ICD-10 - E61.1) Hemoglobin is within the acceptable range and has an adequate Iron stores. Continue oral iron. [facility] Other 11-02-2020 NoteRounds at this time with [...] today as it was not on schedule. UMRPHY Amor notified Taylor Fisher & Maryan Lopez.[facility] HospitalComment on above:Result Comment: Electronically Signed By: Zuleyma Shin RN\.br\Date and Time Signed: 05/04/20 13:53 [id number] NoteBasic Information Cardiology Progress Subjective Cardiology consulted over weekend for chest discomfort post operatively. Her EKG was non-acute and troponin trended negative. She does have a pediatric nurse practitioner and reportedly had stress testing in August [...] mg/dL High (05/04/20 12:12:00) POC Device SN: [id number] (05/04/20 12:12:00) POC Username: NESHA COTA (05/04/20 [...] prefers all testing to be performed at [facility]. Faxed notes to her primary pediatric nurse practitioner's office, Dr Fish. Attempted to schedule stress testing with [facility]. Ordered: EC Stress Echo Complete w/ Contrast 2. Hypertension (I10: Essential (primary) hypertension) Continue current medications and follow up with primary pediatric nurse practitioner on discharge. 3. Diabetes (E11.9: Type 2 [...] discuss this management further with her primary pediatric nurse practitioner, but agreeable to starting statin for now. Patient is offered in-patient stress echocardiogram but declines as she wants to be discharged. She is offered out patient stress testing at [facility] tomorrow am and she prefers to have this done at [facility]. Per Central Scheduling at [facility], Dobutamine Stress Echo's are not performed at the facility. She will have close FU with Dr Fish to move forward with testing. D/W Dr Michel. Faxed info from [facility] Hospital stay to her primary pediatric nurse practitioner. Attestation Discussed patient findings and plan of [...] tab(s), Oral, Bedtime saturnino (more content not included)...[facility] HospitalComment on above: Result Comment: Electronically Signed By: Trudy SUAZO CNP\.br\Date and Time Signed: 05/04/20 13:15 EST\.br\Electronically Co-Signed By: Darrell VIGIL, Jay Jay Conklin\.br\Date and Time Co-Signed: 05/04/20 13:19 [id number] NoteIV removed. nurse prospecting observer emptied. patient and patients daughter verbalized understanding of discharge teaching. patient refused flu vaccination. patient did not verbalize any questions or concerns atthis time.[facility]11-02-2020 Note Admission Information Admitting Physician - JUN [...] another day versus following up with her pediatric nurse practitioner and she has opted to do the latter. This is reasonable as she is chest pain-free at rest as well as on exertion. Patient is already on lisinopril, metoprolol, aspirin. Lipitor 20 mg was added for further risk reduction. She will follow-up with her primary pediatric nurse practitioner Dr. Fish. Regarding her recent Ortho surgery she will do weightbearing activity as tolerated and use crutchesfor assistance with ambulation. Dr. Kushal Michel Hospitalist This report was transcribed using voice recognition software. Every effort was made to ensure accuracy, however, inadvertently computerized knocker off mistakes may be present. Significant Findings POWERSCRIBE [...] pain) Ordered: Hospital Discharge Day 30 Min/Less 88401 2. Hypertension (I10: Essential (primary) hypertension) Ordered: Hospital Discharge Day 30 Min/Less 39624 3. Diabetes (E11.9: Type 2 diabetes mellitus without complications) Ordered: atorvastatin, 20 mg = 1 tab(s), Oral, Bedtime, # 30 tab(s), Refills(s) 1, Pharmacy: [facility]/pharmacy #[id number], 141.5, cm, 04/24/20 13:16:00 EDT, Height/Length Dosing, 69, kg, 05/02/20 5:50:00 EDT, Weight Dosing Hospital Discharge Day 30 Min/Less 57568 4. Acute medial meniscus tear of left knee (S83.242A: Other tear of medial meniscus, current injury, left knee, initial encounter) Ordered: Hospital Discharge Day 30 Min/Less 25232 5. Localized osteoarthritis of left knee (M17.12: Unilateral primary osteoarthritis, left knee) Ordered: Hospital Discharge Day 30 Min/Less 38950 6. No contraindication to deep vein thrombosis (DVT) prophylaxis (Z78.9: Other specified health status) Ordered: Hospital Discharge Day 30 Min/Less 49660 Bruit (R09.89: Other specified symptoms and signs [...] With When Contact Information Follow up with Airport Representative Within 1 week Additional Instructions: JOHN PERDOMO [facility] [place] [address]- [place] (1) Additional Instructions: David Talamantes [address] [place] [address]- [place] (1) Additional Instructions: Keep scheduled (more content not included)...[facility] HospitalComment on above:Result Comment: Electronically Signed By: RAMIREZ VIGIL, Kushal\.br\Date and Time Signed: 05/04/20 12:[id number] Amir rounded with patient earlier. CRM [...] time. Anticipated discharge 05/04/2020 home. CRM to follow.[facility] HospitalComment on above:Result Comment: Electronically Signed By: Ab WU, Terri Dean.rashmi\Date and Time Signed: 05/02/20 10:06 [id number] NoteReason for Consultation Chest pain postoperatively History of Present Illness Mrs. Estrella is a very pleasant 70-year-old diabetic female with hypertension, unknown cholesterol, previously seen by pediatric nurse practitioner Dr. Fish in September 2019 for what [...] testing apparently took place in a private pediatric nurse practitioner office, so I am unsure whether we [...] test in September 2019 at a private pediatric nurse practitioner 's office, reportedly LV dysfunction per thepatient, [...] she undergo a dobutami (more content not included)...[facility] HospitalComment on above:Result Comment: Electronically Signed By: Eleuterio VIGIL, John Carlson\Date and Time Signed: 05/02/20 08:35 [id number] NoteBasic Information Accompanied by: Family member Source of History: Self Present at Bedside: Family member Referral Source: Recovery room History Limitation: None Chief Complaint chest pain History of Present Illness Pt is a 70 F PMH HTN, HLD admitted from PACU. pt had a repair of a left medial meniscus tear with Dr. Talamantes of [facility]. Pt was in PACU recovering, had a [...] 84 mg/dL (05/01/20 16:07:00) POC Device SN: [id number] (05/01/20 16:07:00) POC Username: ALEXIA HALL (05/01/20 16:07:00) Diagnostic Results EKG NSR [address]-T wave changes Images No qualifying data available. Assessment/Plan 1. Other chest pain (R07.89: Other chest pain) - possible ACS, risk factors include DM, HTN, obesity - telemetry, troponin - ASA, fasting lipid profile - consult [facility] cardiology 2. Hypertension (I10: Essential (primary) hypertension) [...] acetaminophen 325 mg Tab (more content not included)...[facility] HospitalComment on above:Result Comment: Electronically Signed By: JUN VIGIL, Nhung\.br\Date and Time Signed: 05/01/20 18:30 [id number] Note [id number]:127[facility] Evaluation noteNo [employer] Other Evaluation note* Diagnosis Onset Date Resolution Status Anemia of renal disease acuteCKD (chronic kidney disease) stage 4, GFR 15-29 ml/minacuteHyperlipidemia [id number]xixlkdrkehyoxhvKfbijtypsru hematuriaacuteSecondary hyperparathyroidismacuteType 2 diabetes mellitus with diabetic chronic kidney diseaseacute [facility] Work Phone: Evaluation note* Diagnosis Onset Date Resolution Status Admit Date Anemia of renal disease acuteNovember 2023 3:17pmCKD (chronic kidney disease) stage 4, GFR 15-29 ml/minacuteNovember 2023 3:17pmHyperlipidemiaacuteNovember 2023 3:17pmHypertensive chronic kidney disease with stage 1 through stage 4 chronic kiacuteMayember 2023 3:17pmHyperuricemiaacuteNovember 2023 3:17pm HypokalemiaacuteNov2023 3:17pmMicroscopic hematuriaacuteNov2023 3:17pmSecondary hyperparathyroidismacuteNov2023 3:17pm Type 2 diabetes mellitus with diabetic chronic kidney diseaseacuteNov2023 3:17pm [facility] Work Phone: Evaluation note* Diagnosis Primary open angle glaucoma (POAG) of both eyes, mild stage (CMS/HCC)- Primary 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 (CMS/HCC) Corneal scar, right eye Unspecified corneal opacity Dry eyes Unspecified tear film insufficiency documented in this encounter [facility] HealthcareEvaluation noteNo assessment information availableSumma Health Work Phone: Evaluation note* Diagnosis Corneal scar, right eye- Primary Unspecified corneal opacity Dry eyes Unspecified tear film insufficiency 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 (CMS/HCC) Primary open angle glaucoma (POAG) of both eyes, mild stage documented in this encounter [facility]* Diagnosis Onset Date Resolution Status Admit Date Anemia of renal disease acuteJuly 2024 11:35amCKD (chronic kidney disease) stage 4, GFR 15-29 ml/minacuteJuly 2024 11:35amHyperlipidemiaacuteJuly 2024 11:35am Hypertensive chronic kidney disease with stage 1 through stage 4 chronic kiacute Tammie 30th, 2025 11:35amHyperuricemiaacuteJuly 2024 11:35amHypokalemiaacute January 29, 2025 11:35amMicroscopic hematuriaacuteJuly 2024 11:35am Secondary hyperparathyroidismacuteJuly 2024 11:35amType 2 diabetes mellitus with diabetic chronic kidney diseaseacuteJuly 2024 11:35am [facility] Work Phone: Evaluation note* Diagnosis Primary open angle glaucoma (POAG) of both eyes, mild stage documented in this encounter [facility] HealthcareHistory general Narrative - Reported* Type Description Date Medical History hypertension Medical HistoryDiabetic -Medical HistoryosteoporosisMedical Historyherpes of the eyeMedical HistoryHTNMedical Historychronic kidney disease, stage 3Medical HistoryosteopeniaMedical HistorygoiterMedical Historyprolapsed cervical intervertebral discMedical HistoryDM 2Medical HistoryGLAUCOMASurgical History appendixSurgical Historyeyelid awoecfr83/2018Surgical History2 c-sectionSurgical HistoryappendectomySurgical HistoryC-section x 2Surgical Historyovarian cyst removalSurgical HistorycholecystectomySurgical Historygall bladder removal Surgical Historythyroid bx x 2Surgical HistoryRT foot surgerySurgical Historyr/o ovarian cystSurgical Historydouble heart bypass07/13/2020urgical Historycataract surgery11/2019Surgical Historyarthroscopic surgery of left knee05/01/20urgical HistorycycstocopySurgical Historyright eye ytfuene37/2021Hospitalization History see above Specialists On Call Other History general Narrative - Reported* Type Description Date Medical History hypertension Medical HistoryDiabetic -Medical HistoryosteoporosisMedical Historyherpes of the eyeMedical HistoryHTNMedical Historychronic kidney disease, stage 3Medical HistoryosteopeniaMedical HistorygoiterMedical Historyprolapsed cervical intervertebral discMedical HistoryDM 2Medical HistoryGLAUCOMAMedical History COVID 07/31/2021urgical HistoryappendixSurgical Historyeyelid cruyxbh45/2018 Surgical History2 c-sectionSurgical HistoryappendectomySurgical HistoryC-section x 2Surgical Historyovarian cyst removalSurgical HistorycholecystectomySurgical Historygall bladder removalSurgical Historythyroid bx x 2Surgical HistoryRT foot surgerySurgical Historyr/o ovarian cystSurgical Historydouble heart bypass 07/13/2020urgical Historycataract surgery11/2019Surgical Historyarthroscopic surgery of left knee05/01/20urgical HistorycycstocopySurgical Historyright eye fkpjhfu44/2021Surgical HistorySTEROID IMPLANT IN RIGHT EYE08/2021Hospitalization Historysee above Specialists On Call Other History general Narrative - Reported* Type Description Date Medical History hypertension Medical HistoryDiabetic -Medical HistoryosteoporosisMedical Historyherpes of the eyeMedical HistoryHTNMedical Historychronic kidney disease, stage 3Medical HistoryosteopeniaMedical HistorygoiterMedical Historyprolapsed cervical intervertebral discMedical HistoryDM 2Medical HistoryGLAUCOMAMedical History COVID 07/31/2021urgical HistoryappendixSurgical Historyeyelid fxvwvbi14/2018 Surgical History2 c-sectionSurgical HistoryappendectomySurgical HistoryC-section x 2Surgical Historyovarian cyst removalSurgical HistorycholecystectomySurgical Historygall bladder removalSurgical Historythyroid bx x 2Surgical HistoryRT foot surgerySurgical Historyr/o ovarian cystSurgical Historydouble heart bypass 07/13/2020urgical Historycataract surgery11/2019Surgical Historyarthroscopic surgery of left knee05/01/20urgical HistorycycstocopySurgical Historyright eye uycoinw88/2021Surgical HistorySTEROID IMPLANT IN RIGHT EYEurgical History RIGHT HEART CATH12/2021Hospitalization Historysee above Specialists On Call Other Reason for referral (narrative)No reason for referral information availableSumma Health Work Phone: Summary Purpose Family History Relationship Condition Age at Onset Recorded Date/T christophe daughter Hypertension Unknown fatherDeceasedUnknownHeart diseaseUnknownDementiaUnknownNot SpecifiedDeceased Unknownnatural sonHypertensionUnknownsisterFamily history of other condition Unknown Relationship Condition Age at Onset Recorded Date/T christophe daughter Hypertension Unknown fatherDeceasedUnknownHeart diseaseUnknownDementiaUnknownmotherDeceasedUnknownson HypertensionUnknownsisterFamily history of other conditionUnknown Advance Directives Advance Directive Response Recorded Date/ Time Advance Directives No July 27, 2021 11:36am Advance Directive Response Recorded Date/ Time Advance Directives No July 27, 2021 10:36am Chief Complaint and Reason for Visit Chief Complaint RENAL 4 month Follow up Reason for Visit Anemia of renal dise ase CKD (chronic kidney disease) stage 4, GFR 15-29 ml/min Hyperlipidemia [id number] Hyperuricemia Hypokalemia Microscopic hematuria Secondary hyperparathyroidism Type 2 diabetes mellitus with diabetic chronic kidney disease Chief Complaint RENAL 4 MONTH F/U Reason for Visit Anemia of renal dise ase CKD (chronic kidney disease) stage 4, GFR 15-29 ml/min Hyperlipidemia [id number] Hyperuricemia Hypokalemia Microscopic hematuria Secondary hyperparathyroidism Type [...] hronic kidney disease January 29, 2025 11:35am Chief Complaint Admit Date Renal F/U January [...] chronic kidney disease April 22, 2025 11:30am Additional Source Comments INFORMATION SOURCE (unrecogn ized section and content) DATE CREATED AUTHOR 03/07/2021 [facility] DATE CREATED AUTHOR AUTHOR'S ORGANIZ ATION 08/05/2021 [facility] DATE CREATED AUTHOR AUTHOR'S ORGANIZ ATION 12/16/2021 [facility] DATE CREATED AUTHOR AUTHOR'S ORGANIZ ATION 10/29/2022 [facility] DATE CREATED AUTHOR AUTHOR'S ORGANIZ ATION 11/29/2024 [facility] DATE CREATED AUTHOR AUTHOR'S ORGANIZ ATION 04/17/2025 [facility] REASON FOR VISIT (unrecogniz ed section and content) ReasonCommentsFollow-upReasonCommentsGlaucomaRetinopathyReasonCommentsMed Refill Care Teams (unrecognized sec tion and content) Team Status: Active Member Role Status Dates John Perdomo DO Primary Care Provider Active Team Status: Active Member Role Status Dates John Perdomo DO Primary Care Provider Active Start: January 01, 2024 [place] Mary Grace , MDAttending ProviderActiveStart: January 01, 2024 Team Status: Inactive Member Role Status Dates John Perdomo DO Primary Care Provider Active Start: January 08, 2024 End: January 07bdul Mary Grace , MDAttending ProviderActiveStart: January 08, 2024 End: January 08, 2024 Team Status: Inactive Member Role Status Dates John Perdomo DO Primary Care Provider Active Start: September 25, 2023 End: September 24bdul Mary Grace , MDAttending ProviderActiveStart: September 25, 2023 End: September 25, 2023 Team Status: Active Member Role Status Dates John Perdomo DO Primary Care Provider Active Start: May 09, 2024 [place] Mary Grace , MDAttending ProviderActiveStart: May 09, 2024 Team Status: Inactive Member Role Status Dates John Perdomo DO Primary Care Provider Active Start: May 13, 2024 End: May 13bdul Mary Grace , MDAttending ProviderActiveStart: May 13, 2024 End: May 13, 2024Team MemberRelationshipSpecialtyStart DateEnd Date Unallocated, [place] MD Darlene Robertson [place] [address] PCP - GeneralFamily Medicine08/18/23 John Perdomo MD [address] [place] [id number] Referring PhysicianOrthopaedic Ptcxrta59/6/23Team MemberRelationshipSpecialty Start DateEnd Date Unallocated, Ara Robertson MD [address] [place] [id number] [facility] - [facility]23 John Perdomo MD [address] [place] [id number] Referring PhysicianOrthopaedic Lclerbs56/6/23 Team Status: Active Member Role Status Dates John Perdomo DO Primary Care Provider Active Start: August 26, 2024 Genevajennifer Jenkins MDAttending ProviderActiveStart: August 26, 2024 Team Status: Inactive Member Role Status Dates John Perdomo DO Primary Care Provider Active Start: September 03, 2024 End: September 03bdjennifer Jenkins , MDAttending ProviderActiveStart: September 03, 2024 End: September 03, 2024Team MemberRelationshipSpecialtyStart DateEnd Date Unallocated, Ara Robertson MD [address] [place] [address] PCP - [facility] Medicine08/18/23 John Perdomo MD [address] [place] [id number] Referring PhysicianOrthopaedic Rxejkse58/6/23Team MemberRelationshipSpecialty Start DateEnd Date Unallocated, Ara Robertson MD [address] [place] [address] PCP - [facility] Medicine08/18/23 John Perdomo MD [address] [place] [address] Referring PhysicianOrthopaedic Gopnyse54/6/23 Team Status: Active Member Role Status Dates John Perdomo DO Primary Care Provider Active Start: January 20, 2025 [place] Mary Grace , MDAttending ProviderActiveStart: January 20, 2025 Team Status: Inactive Member Role Status Dates John Perdomo DO Primary Care Provider Active Start: January 29, 2025 End: January 29bdul Mary Grace , MDAttending ProviderActiveStart: January 29, 2025 End: January 29, 2025Team MemberRelationshipSpecialtyStart DateEnd Date Unallocated, N[place] Provider, [address] [place] [id number] [facility]/23 John Perdomo MD [address] [place] [id number] Referring PhysicianOrthopaedic Njfocnd17/6/23 Team Status: Active Member Role/Relationship Status Dates John Perdomo DO Primary Care Provider Active Team Status: Inactive Member Role/Relationship Status Dates John Perdomo DO Primary Care Provider Active Start: January 29, 2025 End: January 29bdul Mary Grace , MDAttending ProviderActiveStart: January 29, 2025 End: January 29, 2025 Team Status: Active Member Role/Relationship Status Dates John Perdomo DO Primary Care Provider Active Start: April 18, 2025 [place] Mary Grace , MDAttending ProviderActiveStart: April 18, 2025 Team Status: Inactive Member Role/Relationship Status Dates John Perdomo DO Primary Care Provider Active Start: April 22, 2025 End: April 22bdul Mary Grace , MDAttending ProviderActiveStart: April 22, 2025 End: April 22, 2025 Goals (unrecognized section and content) Goals may [...] BE BASED ON THE PRIMARY CLINICAL RECORDS. [facility]. provides no warranty or guarantee of the accuracy or completeness of information in this document.
--- NOTE | 2025-04-25 14:20 | XR_ITS ---
The [address] [address] Patient Name: MADY ESTRELLA MRN: [id number] date: 1950 Sex: F Assigned Patient Location: [facility] Current Patient Location: [facility] Accession/Order Number: [id number] Exam Date: 04/25/2025 14:26 Report Date: 04/25/2025 17:28 At the request of: DEACON CHURCH APRN Procedure: XR chest 2V PA AND LATERAL CHEST: CLINICAL HISTORY: shortness of breath COMPARISON: 04/10/2025 FINDINGS: Sternotomy wires. Enlarged cardiomediastinal. Perihilar pulmonary vasculature. Interstitial thickening. No effusion or pneumothorax. XR/XR chest 2V IMPRESSION: MILD CHF FINDINGS AND INTERSTITIAL EDEMA. Impression dictated by: Baltazar Walker M.D. 04/25/2025 5:28 PM Dictation Location: [place] [address] Electronically authenticated by: [id number] Y Date: 04/25/2025 17:28
== END 2025-04-25 14:15 | disposition home or self-care (01) ==
LOC: RAD 14:14
PROVIDERS: PCP Family Medicine; Visit Provider Nurse Practitioner Family
DX: R06.02 Shortness of breath (principal); I50.9 Heart failure, unspecified
CPT/HCPCS: 71046

== ENCOUNTER 2025-05-07 09:57 | Outpatient (OUT) | payer MEDICARE, OTHER, SELFPAY ==
--- OUTSIDE RECORDS SUMMARY | 2024-11-28 08:00 | XMS_ITS ---
Author Organization [facility] in [place] Address [address] [place] [address] Care Team Providers Care Electromechanical Equipment Tester Name Role Phone John Perdomo Primary Care Provider [phone] REASON FOR VISIT MCW Encounters Encounter Location Date Provider Diagnosis [facility] [address] [place] [address] 11/28/2024 John Perdomo Plan Of Treatment Next Appt Details Provider Name:John browne, 05/12/2025 01:00:00 PM, [address] [place], [address], Provider Name:John Mcdonough Cherrie browne, 06/11/2025 01:00:00 PM, [address] [place], [address], Progress Notes * Claudia POLO EDOB:[birth year] (75 yo F)Acc No.[id number]:11/28/2024 UNLOCKED PROGRESS NOTE Progress Note Patient: Arvind BAH Claudia Conklin :?John Perdomo DODOB:1950???Age:74 Y ???Sex:FemaleDate:11/28/2024Phone:[phone]:[address] [id number] Subjective: * Chief Complaints: * 1 . MCW. * Medical History: Objective: * Vitals: Assessment: Plan: * Treatment: * * Electronic signature of John Perdomo DO, [id number] on 05/07/2025 at 09:59 AM ESTSign off status: PendingVisit Status:?R/S (Rescheduled) * Provider: Hayden Perdomo DO Date: 0 11/28/2024 Generated for Printing/Faxing/eTransmitting on:?05/07/2025 09:59 AM EST
--- OUTSIDE RECORDS SUMMARY | 2025-05-01 12:20 | XMS_ITS | Encounter Summary ---
Author Organization [facility] Address [address] [place] [place] [address] Care Team Providers Care Senior Actuarial Analyst Name Role Phone Hunter Perdomoel Primary Care Provider [phone] Reason for Visit * ReasonCommentsFollow-upPatient is here [...] painCoughIncreased Encounter Details DateTypeDepartmentCare Team (Latest Contact Info)Dlopsuxidvs36/30/2025 1:20 PM EDTOffice Visit [facility] [address] [place] [address] Emilia To, IRISH [address] [place] [phone] Acute on chronic diastolic congestive heart failure (CMS/HCC) (Primary Dx); Stage 4 chronic kidney disease (CMS/HCC); Essential (primary) hypertension; Coronary artery disease involving benton coronary artery of benton heart without angina pectoris; History of coronary artery bypass surgery; Primary hypertension Social History Tobacco UseTypesPacks/DayYears UsedDateSmoking Tobacco: NeverSmokeless Tobacco: NeverAlcohol UseStandard Drinks/WeekCommentsNot Currently0 (1 standard drink = 0.6 oz pure alcohol)[facility] UtilitiesAnswerDate RecordedIn the past 12 months has the [employer], gas, oil, or water [employer] threatened to shut off services in your [...] were you homeless or living in a intermediate (including now)? No05/01/2025Hunger Vital SignAnswerDate RecordedWithin the past 12 months, you worried that your food would run out before you got the money to buymore.Never true05/01/2025Ran Out of Food in the Last YearNot on file05/01/2025 CommentsUnknownSex and Gender InformationValueDate RecordedSex Assigned at Hlwsqu7605/19/2022 6:11 PM ESTLegal YquDsogyo49/30/2022 12:22 AM EDTGender FgwqeiuzHumtpn61/17/2022 6:11 PM ESTSexual OrientationHeterosexual or Straight 05/19/2022 6:11 PM ESTdocumented as of this encounter Last Filed Vital Signs Vital SignReadingTime TakenCommentsBlood Fxpmdyta983/8605/01/2025 1:25 PM EDT Qmrxl105705/01/2025 1:25 PM EDTTemperature--Respiratory Rate--Oxygen Efpzrymxeg04% 05/01/2025 1:25 PM EDTInhaled Oxygen Concentration--Ahjpic85.1 kg (128 lb) 05/01/2025 1:25 PM FWNKleuwq784.2 cm (4' 8 )05/01/2025 1:25 PM EDTBody Mass Index28. 1:25 PM EDTdocumented in this encounter Functional Status * QuestionAnswerDate of AssessmentAuthorHeart Rate XilnuzOzsjdbz80/30/2025 6:01 PM Jhoana Sims RNPatient CpbhjpdsDqukvqa10/30/2025 6:01 PM Jhoana Sims RN * QuestionAnswerDate of MxuuttlqurAhfipoRB255/5305/01/2025 8:23 PM Benja Mar RNPulse7305/01/2025 8:23 PM Benja Mar RN * Pina Fall RiskQuestionAnswerDate of AssessmentAuthorHistory of Falling, Immediate or Within 3 Sysryk008 6:50 PM Jhoana Sims RNSecondary Mqpkfftxz8873/30/2025 6:50 PM Jhoana Sims, RNAmbulatory Svl285 6:50 PM Jhoana Sims RNIntravenous Therapy/Heparin Oebo0465 6:50 PM Jhoana Sims RNGait/Psqmetdrcbyv726/30/2025 6:50 PM Jhoana Sims RNMental Anftrz858/30/2025 6:50 PM Jhoana Sims RNMorse Fall Risk Score35 05/01/2025 6:50 PM Jhoana Sims RN * Phill ScaleQuestionAnswerDate of AssessmentAuthorBraden No Risk Interventions Continue to assess patient according to level of care05/01/2025 8:23 PM EDT Benja Degroot, RNSensory Dhxdczwbcwr334/30/2025 8:23 PM EDTCBenja robins OXJzlcgnle607/30/2025 8:23 PM EDTCBenja robins, ZFCmyodqbr708/30/2025 8:23 PM EDTCBenja robins HESrojxelf428/30/2025 8:23 PM EDBenja Justin RN Lgvubjmrn914/30/2025 8:23 PM EDTCBenja robins, RNFriction and Shear3 05/01/2025 8:23 PM EDTCBenaj robins RNBraden Scale Yzjxx3523/30/2025 8:23 PM Benja Mar RN * [place] Fall Risk InterventionsQuestionAnswerDate of AssessmentAuthor [place] Fall Risk BzveezyurmtegRtqalgdm90/30/2025 6:50 PM Jhoana Sims RN * Pain Assessment TimerQuestionAnswerDate of AssessmentAuthorRestart Pain Assessment XlfauYyx88/30/2025 8:23 PM Benja Mar RN * Sepsis Model ScoresQuestionAnswerDate of AssessmentAuthorEarly Detection of Sepsis Score2.011 10:46 PM EDTChronicles, BatchqEarly Detection of Sepsis Score0.91 10:46 PM EDTChronicles, Batchq * Pain AssessmentQuestionAnswerDate of AssessmentAuthorPain Interventions Gakfrhum64/30/2025 8:23 PM Benja Mar RNPatient's Stated Pain GoalNo pain05/01/2025 8:23 PM Benja Mar RNPain AssessmentNo/denies pain 05/01/2025 8:23 PM Benja Mar RN * Deterioration Index ScoreQuestionAnswerDate of AssessmentAuthorDeterioration Index Score27.031 10:46 PM EDTChmikal Batchq * Head, Ears, Eyes, Nose, and Throat (HEENT)QuestionAnswerDate of Assessment AuthorHead, Ears, Eyes, Nose, and Throat (WDL)X1 8:23 PM Benja Mar RNR EyeMildly impaired vision;Corrective lpsbtw3205/01/2025 8:23 PM FELIXT Benja Degroot RNL EyeMildlfélix impaired vision;Corrective sbwist3705/01/2025 8:23 PM Benja Mar RNMucous Membrane(s)Moist;[place];Zrxzwv0905/01/2025 8:23 PM Benja Mar RNTeethIntact05/01/2025 6:01 PM [...] 6:50 PM Jhoana Sims RNShort Portable Mental Bktxf443 6:50 PM Jhoana Sims RN * Fall [...] PM Jhoana Sims RNProvider notified of new hbskdPi6705/01/2025 6:01 PM Jhoana Sims RN * Vital SignsQuestionAnswerDate of JagpqckekpTmdwbhPgdf21.81 6:01 PM Jhoana Sims RNTemp sqtIettsobz39/30/2025 6:01 PM Jhoana Sims RN Heart Rate HofrcrUpkrdkb16/30/2025 6:01 PM Jhoana Sims RNBP Location Right arm05/01/2025 6:01 PM Jhoana Sims RNBP XswjtrMrczdjmoa49/30/2025 6:01 PM Jhoana Sims RNPatient FbfaztgxTqnwbvh60/30/2025 6:01 PM Jhoana Del Castillo RN * QuestionAnswerDate of CmvdmnlsjcTumadtBuV26523/30/2025 8:23 PM EDTCBenja robins RN * QuestionAnswerDate of EhvgphmsovKhstjtHX565/5305/01/2025 8:23 PM EDTCraBenja lam QSVeato7942/30/2025 8:23 PM EDTCraBenja lam RNResp201 8:23 PM EDTCraBenja lam RNPulse rate from Plethysmogram (bpm)7205/01/2025 8:23 PM EDeBnja Justin RN * QuestionAnswerDate of AssessmentAuthorSwallowAble to swallow solids and liquids without fwlaqjhmqs12/30/2025 8:23 PM EDBenja Justin RN * QuestionAnswerDate of AssessmentAuthorBilateral Breath SoundsDiminished 05/01/2025 8:23 PM EDBenja Justin RNRespiratory OydhamgXnlguo30/30/2025 8:23 PM EDTCBenja robins RNChest AssessmentChest expansion symmetrical 05/01/2025 8:23 PM EDTCBenja robins RNRespiratory IdbausYhxhidsuy77/30/2025 8:23 PM EDBenja Justin RNRespiratory Depth/SkvcawRioinfe25/30/2025 8:23 PM EDBenja Justin RNDyspnea OccurrenceWith /30/2025 8:23 PM EDT Benja Degroot RN * QuestionAnswerDate of AssessmentAuthorCardiac SrrlxeTJZ60/30/2025 8:23 PM EDT Benja Degroot RNEctopy UibsxuythRgeaouaolm79/30/2025 6:01 PM Jhoana Sims RNCardiac PvwpnnxnljQiukvqn50/30/2025 8:23 PM Benja Mar RN Text Transcriber WlvislGo15/30/2025 8:23 PM Benja Mar RNTelemetry Box Jukgoqlv707731/30/2025 6:01 PM Jhoana Sims RNJugular Venous Distention [...] PM EDTCBenja robins RNEdemaRight lower extremity;Left lower hiiilhcuf05/30/2025 6:01 PM Jhoana Sims RN Peripheral Vascular Additional AssessmentsRight lower extremity;Left lower xcaqvwvvr56/30/2025 6:01 PM Jhoana Sims RN * RUE Neurovascular AssessmentQuestionAnswerDate of AssessmentAuthorRight Radial Pulse+ 8:23 PM EDTCBenja robins RN * LUE Neurovascular AssessmentQuestionAnswerDate of AssessmentAuthorLeft Radial Pulse+ 8:23 PM EDTCBenja robins RN * RLE Neurovascular AssessmentQuestionAnswerDate of AssessmentAuthorRLE Edema+1 05/01/2025 8:23 PM EDBenja Justin RNRLE Capillary RefillLess than/equal to 2 erxwelx6005/01/2025 8:23 PM EDTCBenja robins RNRRUBI ColorAppropriate for rdusofytz28/30/2025 8:23 PM EDTCrable, Yousif, RNRLE Temperature/Moisture Warm;Dry05/01/2025 8:23 PM EDTCraBenja lam RNRight Posterior Tibial Pulse + 6:01 PM Jhoana Sims RNRight Pedal Pulse+ 8:23 PM EDTCBenja robins RN * LLE Neurovascular AssessmentQuestionAnswerDate of AssessmentAuthorLLE Edema+1 05/01/2025 8:23 PM EDTCraBenja lam RNLLE Capillary RefillLess than/equal to 2 uammpkp1805/01/2025 8:23 PM EDTCrableBenja RNLLE ColorAppropriate for ewevdvnqz72/30/2025 8:23 PM EDTCraBenja lam RNLLE Temperature/Moisture Warm;Dry05/01/2025 8:23 PM EDTCBenja robins RNLeft Posterior Tibial Pulse+1 05/01/2025 6:01 PM Jhoana Sims RNLeft Pedal Pulse+ 8:23 PM EDTCBenja robins RN * MusculoskeletalQuestionAnswerDate of AssessmentAuthorMusculoskeletal (WDL)WDL 05/01/2025 8:23 PM Benja Mar RN * PsychosocialQuestionAnswerDate of AssessmentAuthorPsychosocial (WDL)WDL 05/01/2025 8:23 PM Benja Mar RN * Pina Fall RiskQuestionAnswerDate of AssessmentAuthorHistory of Falling, Immediate or Within 3 Actgrv012 6:50 PM Jhoana Sims RNSecondary Aushpjkvk1517/30/2025 6:50 PM Jhoana Sims RNAmbulatory Opg242 6:50 PM Jhoana Sims RNIntravenous Therapy/Heparin Odbj6229 6:50 PM Jhoana Sims RNGait/Ndlxejawuoag846/30/2025 6:50 PM Jhoana Sims RNMental Wpfhnb140 6:50 PM Jhoana Sims RNMorskaz Fall Risk Score35 05/01/2025 6:50 PM Jhoana Sims RN * Phill ScaleQuestionAnswerDate of AssessmentAuthorBraden No Risk Interventions Continue to assess patient according to level of care05/01/2025 8:23 PM EDT Benja Degroot, RNSensory Xhgbbxswfdh459/30/2025 8:23 PM EDTCBenja robins HDRoxnfhbw900/30/2025 8:23 PM EDTCraBenja lam, BZOonlrkii281/30/2025 8:23 PM EDTCBenja roibns MOSlerzizm614/30/2025 8:23 PM EDTCBenja robins RN Twbnxcytt392/30/2025 8:23 PM EDTCBenja robins, RNFriction and Shear3 05/01/2025 8:23 PM EDTCBenja robins RNBraden Scale Lgfco2169/30/2025 8:23 PM EDBenja Justin RN * Charting TypeQuestionAnswerDate of AssessmentAuthorCharting TypeShift gzjtrwuycg86/30/2025 8:23 PM Benja Mar RN * Values/BeliefsQuestionAnswerDate of AssessmentAuthorCultural Requests During Hpcwgwourrecqbtrjva18/30/2025 6:51 PM Ana Davies RNSpiritual Requests During Ovrmveflydxdbyhnijr97/30/2025 6:51 PM Ana Davies RN * GenitourinaryQuestionAnswerDate of AssessmentAuthorGenitourinary (WDL)WDL 05/01/2025 8:23 PM Benja Mar RN * Patient MonitoringQuestionAnswerDate of AssessmentAuthorFrequency of Checks Twice per hour, gltdmedp99/30/2025 6:50 PM Jhoana Sims RN * Safe EnvironmentQuestionAnswerDate of AssessmentAuthorChair AlarmsOff 05/01/2025 6:50 PM Jhoana Sims, RNArm Bands OnID05/01/2025 6:50 PM Jhoana Del Castillo RNSide Rails/Bed Safety2/410 6:50 PM Jhoana Sims RNBed PdhvqhUtl19/30/2025 6:50 PM Jhoana Sims RNThe Patient's Environment is AfsvGce70/30/2025 6:50 PM Jhoana Sims RN * MobilityQuestionAnswerDate of TglvnzkcanHptlqhAzuelgtvjq96/30/2025 6:50 PM Jhoana Del Castillo RNActivity PerformedAmbulated in room05/01/2025 6:50 PM Jhoana Del Castillo RNRepositionedTurns self05/01/2025 6:50 PM Jhoana Sims RN Level of PxrewclhesNnwjflmvyrk59/30/2025 6:50 PM Jhoana Sims RNHead of Bed ElevatedSelf snbpulkoe52/30/2025 6:50 PM Jhoana Sims RNHeels/Feet Foot of bed elevated;Heels elevated off bed05/01/2025 6:50 PM Jhoana Sims RNRange of MotionActive;All ndznqapjkns51/30/2025 6:50 PM Jhoana Sims RNAnti-Embolism DevicesBilateral;Sequential compression devices, below knee05/01/2025 6:50 PM Jhoana Sims RNAnti-Embolism InterventionOff 05/01/2025 6:50 PM Jhoana Sims RNPatient's mobility zoneZone 6:50 PM Jhoana Sims RNPositioning FrequencyAble to turn self05/01/2025 6:50 PM Jhoana Sims RN * PrecautionsQuestionAnswerDate of GqhofznhmxNowywyNklbfzgxlyxMwnk10/30/2025 6:50 PM Jhoana Sims RN * Family/Significant Other CommunicationQuestionAnswerDate of AssessmentAuthor Family/Significant Other TrauthLvyovrzs65/30/2025 6:50 PM Jhoana Sims RN * Comfort and Environment InterventionsQuestionAnswerDate of AssessmentAuthor ComfortRepositioned;Gown lfcjsgp2805/01/2025 6:50 PM Jhoana Sims, BRYCE * Safety Equipment at BedsideQuestionAnswerDate of AssessmentAuthorSafety Equipment at RxsbhudZeiw52/30/2025 6:50 PM Jhoana Sims, BRYCE * ADL ScreeningQuestionAnswerDate of AssessmentAuthorDo you snore or wake up gasping for air?No05/01/2025 6:50 PM Ana Davies RNCan you bring in your CPAP/BiPAP from home?N/A1 6:50 PM Ana Davies RNPatient's Vision Adequate to Safely Complete Daily RwcnocisxbGhl35/30/2025 6:50 PM Ana Davies RNPatient's Judgment Adequate to Safely Complete Daily ActivitiesYes 05/01/2025 6:50 PM Ana Davies RNPatient's Memory Adequate to Safely Complete Daily DfptmzmbsdCrj85/30/2025 6:50 PM Ana Davies RNPatient Able to Express Needs/HeilwjhYkx92/30/2025 6:50 PM Ana Davies RNDressing Ueirrriavah55/30/2025 6:50 PM Ana Davies INGfvwvvnlCniykhntvyq00/30/2025 6:50 PM Ana Davies, OFVamoswnVvsxckjquts47/30/2025 6:50 PM Ana aDvies TMVqnjaqzVvqygumtzfp24/30/2025 6:50 PM Ana Davies RNToiletingIndependent 05/01/2025 6:50 PM Ana Davies RNIn/Out CvyMqifglnbelk97/30/2025 6:50 PM Ana Davies RNWalks in FaujHdvpwmereir76/30/2025 6:50 PM Ana Davies RNWeakness of SdjwPpwr99/30/2025 6:50 PM Ana Davies RNWeakness of Arms/CayvwSdfe13/30/2025 6:50 PM Ana Davies RNHearing - Right Ear Rmejscxmxs80/ 6:50 PM Ana Davies RNHearing - Left [...] AssessmentAuthorPT Evaluation Needed1 05/01/2025 6:50 PM Ana Davies RNOT Evaluation Vnpqgk627 6:50 PM Ana Davies RNSLP Evaluation Nzpfcm487/30/2025 6:50 PM Ana Davies RN * Assistive DevicesQuestionAnswerDate of AssessmentAuthorAssistive Devices Baiejmkhyl76/30/2025 6:50 PM Ana Davies RN * [place] Fall Risk InterventionsQuestionAnswerDate of AssessmentAuthor [place] Fall Risk LqxgdgunlqyljOrdloata18/30/2025 6:50 PM Jhoana Sims RN * Suicidal IdeationQuestionAnswerDate of AssessmentAuthor1. Wish to be (Lifetime)No05/01/2025 6:51 PM Ana Davies RN2. Non-Specific Active Suicidal Thoughts (Lifetime)No05/01/2025 6:51 PM Ana Davies, BRYCE * Pain AssessmentQuestionAnswerDate of AssessmentAuthorPain Interventions Phjpemxz53/30/2025 8:23 PM Benja Mar RNPatient's Stated Pain GoalNo pain05/01/2025 8:23 PM Benja Mar RNPain AssessmentNo/denies pain 05/01/2025 8:23 PM Benja Mar RN * NutritionQuestionAnswerDate of AssessmentAuthorDiet TypeHeart healthy 05/01/2025 6:50 PM Jhoana Sims RNFeedingAble to feed self05/01/2025 6:50 PM Jhoana Sims RN * Respiratory InterventionsQuestionAnswerDate of AssessmentAuthorRespiratory Interventions PerformedCough and deep nefdtup30/30/2025 6:01 PM Jhoana Sims RN * Cough and Deep BreatheQuestionAnswerDate of AssessmentAuthorCough and Deep AjcqvxxYmw87/30/2025 8:23 PM Benja Mar RN * IntegumentaryQuestionAnswerDate of AssessmentAuthorIntegumentary (WDL)WDL 05/01/2025 8:23 PM Benja Mar RN * Patient Strengths/Problem AreasQuestionAnswerDate of AssessmentAuthorStrengths (Must Choose Two)Communication Skills;Supportive Xqtzfz4105/01/2025 6:51 PM Ana Chang RNProblem AreasHealth Problems;Physical Sxcjqb7605/01/2025 6:51 PM Ana Davies RN * Environment of Care ChecklistQuestionAnswerDate of AssessmentAuthorWere suicide precautions explained to the patient?No05/01/2025 6:50 PM Jhoana Sims RNPotebrianneially harmful objects out of patient reach?Yes05/01/2025 6:50 PM Jhoana Sims RNPersonal belongings secured?Yes05/01/2025 6:50 PM Jhoana Del Catsillo RNPatient dressed in hospital-provided attire only?Yes 05/01/2025 6:50 PM Jhoana Sims RNPatient care equipment (cords, cables, call bells, lines, and drains) shortened, removed, or accounted for?Yes 05/01/2025 6:50 PM Jhoana Sims RNRoom secured by RN per shift?Yes 05/01/2025 [...] Damon RN * Weight Loss ScoreAnswerDate of YrtofbulvnDdfqjr998/30/2025 7:45 PM Li Damon RN * Malnutrition ScoreAnswerDate of XbeyqevornIddoqc505/30/2025 7:45 PM Li Damon RN documented as of this encounter Progress Notes * Emilia To, IRISH - 05/01/2025 1:20 PM EDT Images from the original note were not included. [place] [facility] Subjective Chief Complaint Patient presents [...] heart failure with preserved ejection fraction (HFpEF) ([facility]) Family History Problem Relation Name Age of [...] Essential (primary) hypertension Coronary artery disease involving benton coronary artery of benton heart without angina pectoris History of coronary [...] this plan. Arranged for direct admission to [facility]. #HTN -Hypotension resolved -Continue metoprolol 75mg BID, [...] Plan of Treatment DateTypeDepartmentCare Team (Latest Contact Info)Ymgwfyhrqta37/18/2025 10:00 AM ESTFollow-Up [facility] [address] [place] [address] Emilia To, QUALITY NURSE [address] [place] [phone] documented as of this encounter Visit Diagnoses Diagnosis Acute on chronic diastolic congestive heart failure (CMS/HCC)- Primary Stage 4 chronic kidney disease (CMS/HCC) Essential (primary) hypertension Unspecified essential hypertension Coronary artery disease involving benton coronary artery of benton heart without angina pectoris History of coronary artery bypass surgery Postsurgical aortocoronary bypass status Primary hypertension Unspecified essential hypertension documented in this encounter Care Teams Team MemberRelationshipSpecialtyStart DateEnd Date John Perdomo DO [address] [place] [address] PCP - Szjinks83/8/22documented as of this encounter
--- OUTSIDE RECORDS SUMMARY | 2025-05-01 16:55 | XMS_ITS | Encounter Summary ---
Author Organization [facility] Address [address] [place] [address] Care Team Providers Care Rpg Programmer Analyst Name Role Phone PerdomoJohn Primary Care Provider [phone] Reason for Referral * Consultation (Routine) - Pending ReviewSpecialtyDiagnoses / ProceduresReferred By ContactReferred To ContactCardiology Diagnoses Chronic diastolic heart failure (CMS/HCC) Procedures [place] OFFICE/OUTPATIENT [facility] 60 MINUTES Eh Higuera MD [facility] [place] [address] Phone: tel: fax: Luis Carrero MD [address] [place] [address] Phone: tel: fax: Referral IDStatusReasonStart DateExpiration DateVisits RequestedVisits [id number] Review Specialty Services Required * Consultation (Routine) - Pending ReviewSpecialtyDiagnoses / ProceduresReferred By ContactReferred To ContactNephrology Diagnoses Chronic diastolic heart failure (CMS/HCC) Procedures [place] OFFICE/OUTPATIENT [facility] 60 MINUTES Eh Higuera MD [address] [place] [address] Phone: tel: fax: Jazzmine Kelsey MD [address] [place] [address] Phone: tel: fax: Referral IDStatusReasonStart DateExpiration DateVisits RequestedVisits [id number] Review Specialty Services Required * Consultation (Routine) - Pending ReviewSpecialtyDiagnoses / ProceduresReferred By ContactReferred To Contact Diagnoses Chronic diastolic heart failure (CMS/HCC) Procedures [place] OFFICE/OUTPATIENT [facility] 60 MINUTES Eh Higuera MD [address] [place] [address] Phone: tel: fax: John Perdomo, [address] [address] Phone: tel: fax: Referral IDStatusReasonStart DateExpiration DateVisits RequestedVisits [id number] * Consultation (Routine) - ClosedSpecialtyDiagnoses / ProceduresReferred By ContactReferred To ContactCardiopulmonary Rehab / CardioPulmonary Rehab Diagnoses Coronary arteriosclerosis Procedures [place] OFFICE/OUTPATIENT [facility] 60 MINUTES Rickey Jackson MD [address] [facility] [address] [facility] [place] [address] Phone: tel: fax: [facility] [address] [place] [address] [place] [address] Phone: tel: fax: Referral IDStatusReasonStart DateExpiration DateVisits RequestedVisits [id number] Specialty Services Required * Consultation (Routine) - ClosedSpecialtyDiagnoses / ProceduresReferred By ContactReferred To ContactCardiopulmonary Rehab / CardioPulmonary Rehab Diagnoses Acute on chronic heart failure with preserved ejection fraction (HFpEF) (CMS/HCC) Procedures [place] OFF[facility]PATIENT [facility] 60 MINUTES Bran Fish MD [address] [facility] [address] [place] [address] Phone: tel: fax: [facility] [address] [place] [address] [place] [address] Phone: tel: fax: Referral IDStatusReasonStart DateExpiration DateVisits RequestedVisits [id number] Specialty Services Required * (Routine) - Pending ReviewSpecialtyDiagnoses / ProceduresReferred By Contact Referred To Contact Procedures ECG 12 lead Eh Higuera MD [address] [place] [address] Phone: tel: fax: Referral IDStatusReasonStart DateExpiration DateVisits RequestedVisits [id number] Reason for Visit * Auth/Cert (Routine)SpecialtyDiagnoses / ProceduresReferred By ContactReferred To Contact Diagnoses Acute on chronic heart failure with preserved ejection fraction (HFpEF) (CMS/HCC) CHF Exacerbation/CKD Procedures NO CODED SERVICES Crispin Galeano MD [address] [place] [address] Phone: tel: fax: [facility] [address] [place] [address] Phone: tel: fax: Referral IDStatusReasonStart DateExpiration DateVisits RequestedVisits [id number] Encounter Details DateTypeDepartmentCare Team (Latest Contact Info)Cqynvqfamzy58/30/2025 5:55 PM EDT - 05/04/2025 4:00 PM ESTHospital Encounter [facility] [address] [place] [address] Crispin Galeano MD [address] [place] [address] Eh Higuera MD [address] [place], [place] [id number] Chronic diastolic heart failure (CMS/HCC) (Primary Dx); Acute on chronic heart failure with preserved ejection fraction (HFpEF) (CMS/HCC); Coronary arteriosclerosis; Essential (primary) hypertension; Goiter Discharge Disposition: Home or Self Care () Social History Tobacco UseTypesPacks/DayYears UsedDateSmoking Tobacco: NeverSmokeless Tobacco: NeverAlcohol UseStandard Drinks/WeekCommentsNot Currently0 (1 standard drink = 0.6 oz pure alcohol)[facility] UtilitiesAnswerDate RecordedIn the past 12 months has the [employer], gas, oil, or water [employer] threatened to shut off services in your [...] were you homeless or living in a long-term (including now)? No05/01/2025Hunger Vital SignAnswerDate RecordedWithin the past 12 months, you worried that your food would run out before you got the money to buymore.Never true05/01/2025Ran Out of Food in the Last YearNot on file05/01/2025 CommentsUnknownSex and Gender InformationValueDate RecordedSex Assigned at Xaxklh7605/19/2022 6:11 PM ESTLegal HjaKkamlg41/30/2022 12:22 AM EDTGender EwbvohcyQyhogb14/17/2022 6:11 PM ESTSexual OrientationHeterosexual or Straight 05/19/2022 6:11 PM ESTdocumented as of this encounter Last Filed Vital Signs Vital SignReadingTime TakenCommentsBlood Wkwbkjns408/6705/04/2025 12:25 PM EST Sqqfb154205/04/2025 12:25 PM GHEKzqmwabzvmj61 ??C (98.6 ??F)05/04/2025 12:25 PM ESTRespiratory Pbmu838007/04/2024 12:25 PM ESTOxygen Bhsighuvbr75%05/04/2025 12:25 PM ESTInhaled Oxygen Concentration--Unqpcc79.6 kg (127 lb)05/04/2025 4:43 AM EST Nftkid940.2 cm (4' 8 )05/01/2025 6:01 PM EDTBody Mass Index28.4705/01/2025 6:01 PM EDTdocumented in this encounter Functional Status * QuestionAnswerDate of TajfvmqqluBqhjofMX061/6705/04/2025 12:25 PM Trudy Winston RNPulse7305/04/2025 12:25 PM Trudy Winston RNHeart Rate Source Mvdxuxs5905/04/2025 12:25 PM Trudy Winston RNPatient PositionLying 05/04/2025 12:25 PM Trudy Winston RN * Silvana Fall RiskQuestionAnswerDate of AssessmentAuthorHistory of Falling, Immediate or Within 3 Iibxlv044/02/2025 8:00 AM Trudy Winston RN Secondary Douqvusfz3059/02/2025 8:00 AM Trudy Winston, RNAmbulatory Aid0 05/04/2025 8:00 AM Trudy Winston RNIntravenous Therapy/Heparin Lock20 05/04/2025 8:00 AM Trudy Winston RNGait/Gkogbnqvxsee797/02/2025 8:00 AM Trudy Winston RNMental Brinyn169/02/2025 8:00 AM Trudy Winston RN Morse Fall Risk Yvwje083105/04/2025 8:00 AM Trudy Winston RN * Phill ScaleQuestionAnswerDate of AssessmentAuthorBraden No Risk Interventions Continue to assess patient according to level of care05/04/2025 8:05 AM Trudy Caro, RNSensory Qukdhqscbfg213/02/2025 8:05 AM Trudy Winston RNMoisture4107/04/2024 8:05 AM Trudy Winston QNPuqfgyek405/02/2025 8:05 AM Trudy Winston RNMobility4107/04/2024 8:05 AM Trudy Winston RN Pobxcfere463/02/2025 8:05 AM Trudy Winston, RNFriction and Shear3 05/04/2025 8:05 AM Trudy Winston RNBraden Scale Qkplu7297/02/2025 8:05 AM Trudy Winston RN * University Fall Risk InterventionsQuestionAnswerDate of AssessmentAuthor University Fall Risk JhsjpfcooztlgNszmmgvl31/02/2025 8:00 AM Trudy Winston RN * Pain Assessment TimerQuestionAnswerDate of AssessmentAuthorRestart Pain Assessment DzsulGkk55/02/2025 8:05 AM Trudy Winston RN * Sepsis Model ScoresQuestionAnswerDate of AssessmentAuthorEarly Detection of Sepsis Score1.611 4:00 PM ESTChronicles, BatchqEarly Detection of Sepsis Score0.511 3:46 PM ESTChronicles, Batchq * Pain AssessmentQuestionAnswerDate of AssessmentAuthorPain Interventions Tdmtzrou64/02/2025 8:05 AM Trudy Winston RNPatient's Stated Pain GoalNo pain05/04/2025 8:05 AM Trudy Winston RNPain AssessmentNo/denies pain 05/04/2025 8:05 AM Trudy Winston RN * Deterioration Index ScoreQuestionAnswerDate of AssessmentAuthorDeterioration Index Score23.7505/04/2025 3:46 PM ESTChronicles, Batchq * Head, Ears, Eyes, Nose, and Throat (HEENT)QuestionAnswerDate of Assessment AuthorHead, Ears, Eyes, Nose, and Throat (WDL)X107/04/2024 8:05 AM Trudy Winston RNR EyeMildly impaired vision;Corrective yhclfc7305/04/2025 8:05 AM Trudy Caro RNL EyeMildly impaired vision;Corrective qtdzfx0105/04/2025 8:05 AM Trudy Winston RNTonguePink;Moist05/03/2025 8:19 PM Marcos Lyon RNMucous Membrane(s)Moist;[place];Gnappr7605/03/2025 8:19 PM Marcos Lyon RNTeethIntact05/02/2025 8:10 PM Marcos Lyon RNLipsDry 05/02/2025 9:16 AM Jhoana Sims RN * Short Portable Mental StatusQuestionAnswerDate of AssessmentAuthorWhat are the date, month, year? 8:00 AM Trudy Winston RNWhat is the day of the week? 8:00 AM Trudy Winston RNWhat is the name of this place? 8:00 AM Trudy Winston RNWhat is your phone number?0 05/03/2025 8:19 PM Marcos Lyon RNHow old are you? 8:00 AM Trudy Winston RNWhen were you born? 8:00 AM Trudy Winston RNWho is the current president? 8:00 AM Trudy Winston RNWho was the president before him? 8:00 AM Trudy Winston RN What was your mother's maiden name? 8:19 PM Marcos Lyon, BRYCE Can you count backward from 20 by 3s? 8:19 PM Marcos Lyon RNShort Portable Mental Gutdy16007/03/2024 8:19 PM Marcos Lyon RN * Fall Risk LevelQuestionAnswerDate of AssessmentAuthorMobility zoneLow (Green Zone)05/04/2025 8:00 AM Trudy Winston RNMorse fall risk zoneLow (Green Zone)05/04/2025 8:00 AM Trudy Winston RNMental status questionaire zone Low (Green Zone)05/04/2025 8:00 AM Trudy Winston RN * QuestionAnswerDate of AssessmentAuthorPulse rate from Plethysmogram (bpm)70 05/04/2025 12:25 PM Trudy Winston RN * Skin Assessment Sign offQuestionAnswerDate of AssessmentAuthorDual Sign-off - Admission/TransferASwati Abad RN05/01/2025 6:01 PM Jhoana Sims RNAny new wounds identified on admission/transfer?No05/01/2025 6:01 PM Jhoana Sims, RNProvider notified of new zbaiaYm7005/01/2025 6:01 PM Jhoana Sims, RN * Vital SignsQuestionAnswerDate of ZshyjazjntRccaiuVP824/6705/04/2025 12:25 PM Trudy Winston, QETjds09.6107/04/2024 12:25 PM Trudy Winston RNTemp jfdYwlaulgs91/02/2025 12:25 PM Trudy Winston SCYzovz4269/02/2025 12:25 PM Trudy Winston FOEmxf7836/02/2025 12:25 PM Trudy Winston, RNSpO2 9605/04/2025 12:25 PM Trudy Winston RNHeart Rate UzracqRstbvfl23/02/2025 12:25 PM Trudy Winston RNBP LocationRight arm05/04/2025 12:25 PM Trudy Caro RNBP ZyykteFjbjrpruj06/02/2025 12:25 PM Trudy Winston RNMAP (mmHg)8205/04/2025 12:25 PM Trudy Winston RNPatient PositionLying 05/04/2025 12:25 PM Trudy Winston, RN * QuestionAnswerDate of AssessmentAuthorSwallowAble to swallow solids and liquids without ltfhrijcat65/02/2025 8:05 AM Trudy Winston RN * QuestionAnswerDate of AssessmentAuthorBilateral Breath SoundsClear;Diminished 05/04/2025 8:05 AM Trudy Winston RNRespiratory IleekejDlnter40/02/2025 8:05 AM Trudy Winston RNChest AssessmentChest expansion symmetrical 05/04/2025 8:05 AM Trudy Winston RNRespiratory IsyipaWxswmmltm16/02/2025 8:05 AM Trudy Winston RNRespiratory Depth/MjehfoMyzolse21/02/2025 8:05 AM Trudy Winston RNDyspnea OccurrenceWith disrnumd72/02/2025 8:05 AM Trudy Caro RN * QuestionAnswerDate of AssessmentAuthorCardiac GeuozpIMT00/02/2025 8:05 AM Trudy Caro RNEctopy LbpnkvnecNjkkeebrhw89/02/2025 8:05 AM Trudy Winston RNCardiac TubmmdlpnoChmntik72/02/2025 8:05 AM Trudy Winston RN Buggy Runner MzxpooPu10/02/2025 8:05 AM Trudy Winston RNTelemetry Box Numberw 36867307/04/2024 8:05 AM Trudy Winston RNJugular Venous Distention (JVD)Yes05/04/2025 8:05 AM Trudy Winston RNCardiac Symptoms None05/04/2025 8:05 AM Trudy Winston RNHeart SoundsS1, S205/04/2025 8:05 AM Trudy Winston RN * GastrointestinalQuestionAnswerDate of AssessmentAuthorGastrointestinal (WDL) WDL107/04/2024 8:05 AM Trudy Winston RN * Peripheral VascularQuestionAnswerDate of AssessmentAuthorPeripheral Vascular (WDL)X107/04/2024 8:05 AM Trudy Winston RNGeneralized EdemaNon-pitting 05/04/2025 8:05 AM Trudy Winston RNCapillary RefillLess than/equal to 2 seconds (All extremities)05/04/2025 8:05 AM Trudy Winston, RNPulsesRight radial;Left radial;Right pedal;Left pedal107/04/2024 8:05 AM Trudy Winston RNCyanosisNone107/04/2024 8:05 AM Trudy Winston RNEdema Oakozayobmh07/02/2025 8:05 AM Trudy Winston, RNPeripheral Vascular Additional AssessmentsRight lower extremity;Left lower extremity;Right upper extremity;Left upper pubriajhu88/02/2025 8:05 AM Trudy Winston RN * RUKaterin Neurovascular AssessmentQuestionAnswerDate of AssessmentAuthorRUE Edema Non-bddxzpo0605/04/2025 8:05 AM Trudy Winston RNRUE Capillary RefillLess than/equal to 2 chknepx0205/04/2025 8:05 AM Trudy Winston RNRUE Color Appropriate for mhforowog34/02/2025 8:05 AM Trudy Winston RNRUE Temperature/MoistureWarm;05/04/2025 8:05 AM Trudy Winston RNRight Radial Pulse+ 8:05 AM Trudy Winston RN * LUKaterin Neurovascular AssessmentQuestionAnswerDate of AssessmentAuthorLUE Edema Non-armpybq4105/04/2025 8:05 AM Trudy Winston RNLUE Capillary RefillLess than/equal to 2 noqizut1905/04/2025 8:05 AM Trudy Winston RNLUE Color Appropriate for zkneabsle63/02/2025 8:05 AM Trudy Winston RNLUE Temperature/MoistureWarm;05/04/2025 8:05 AM Trudy Winston RNLeft Radial Pulse+ 8:05 AM Trudy Winston RN * RLE Neurovascular AssessmentQuestionAnswerDate of AssessmentAuthorRLE Edema Non-xhkwgci0305/04/2025 8:05 AM Trudy Winston RNRLE Capillary RefillLess than/equal to 2 jzmxrga9405/04/2025 8:05 AM Trudy Winston, RNRLE Color Appropriate for bzzhubamj68/02/2025 8:05 AM Trudy Winston RNRLE Temperature/MoistureWarm;05/04/2025 8:05 AM Trudy Winston RNRight Posterior Tibial Pulse+ 8:19 PM Marcos Lyon RNRight Pedal Pulse+ 8:05 AM Trudy Winston RN * LLE Neurovascular AssessmentQuestionAnswerDate of AssessmentAuthorLLE Edema Non-ntsuzjs2205/04/2025 8:05 AM Trudy Winston RNLLE Capillary RefillLess than/equal to 2 udbedis8905/04/2025 8:05 AM Trudy Winston RNLLE Color Appropriate for huftlbxhy74/02/2025 8:05 AM Trudy Winston RNLLE Temperature/MoistureWarm;Dry05/04/2025 8:05 AM Trudy Winston RNLeft Posterior Tibial Pulse+ 8:19 PM Marcos Lyon RNLeft Pedal Pulse+ 8:05 AM Trudy Winston RN * MusculoskeletalQuestionAnswerDate of AssessmentAuthorMusculoskeletal (WDL)WDL 05/04/2025 8:05 AM Trudy Winston RN * PsychosocialQuestionAnswerDate of AssessmentAuthorPsychosocial (WDL)WDL 05/04/2025 8:05 AM Trudy Winston RN * Silvana Fall RiskQuestionAnswerDate of AssessmentAuthorHistory of Falling, Immediate or Within 3 Jpdjee722 8:00 AM Trudy Winston RN Secondary Aueumyltg2563/02/2025 8:00 AM Trudy Winston, RNAmbulatory Aid0 05/04/2025 8:00 AM Trudy Winston RNIntravenous Therapy/Heparin Lock20 05/04/2025 8:00 AM Trudy Winston RNGait/Gmzobgzipsxs914/02/2025 8:00 AM Trudy Winston RNMental Tbghij973/02/2025 8:00 AM Trudy Winston RN Morse Fall Risk Sgcte511205/04/2025 8:00 AM Trudy Winston RN * Phill ScaleQuestionAnswerDate of AssessmentAuthorBraden No Risk Interventions Continue to assess patient according to level of care05/04/2025 8:05 AM Trudy Caro, RNSensory Ullmtkulhlg658/02/2025 8:05 AM Trudy Winston, KHOvsbgqip816/02/2025 8:05 AM Trudy Winston, KDFqykemlq976/02/2025 8:05 AM Trudy Winston, WTGlbnaalc518/02/2025 8:05 AM Trudy Winston RN Nmcjmuxff690/02/2025 8:05 AM Trudy Winston, RNFriction and Shear3 05/04/2025 8:05 AM Trudy Winston RNBraden Scale Empdx8414/02/2025 8:05 AM Trudy Winston RN * Charting TypeQuestionAnswerDate of AssessmentAuthorCharting TypeShift kcauqybwzn40/02/2025 8:05 AM Trudy Winston RN * Cultural Requests During HospitalizationAnswerDate of AssessmentAuthordeclined 05/02/2025 9:00 AM Jhoana Sims RN * Spiritual Requests During HospitalizationAnswerDate of AssessmentAuthor oyvdjfgh22/31/2025 9:00 AM Jhoana Sims RN * GenitourinaryQuestionAnswerDate of AssessmentAuthorUrinary FrequencyAdequate 05/04/2025 8:05 AM Trudy Winston RNGenitourinary (WDL)WDL107/04/2024 8:05 AM Trudy Winston RNUrinary QcgndlsbuitqHg53/02/2025 8:05 AM Trudy Winston RN * Patient MonitoringQuestionAnswerDate of AssessmentAuthorFrequency of Checks Twice per hour, evwfljtk54/02/2025 8:00 AM Trudy Winston RN * Safe EnvironmentQuestionAnswerDate of AssessmentAuthorChair AlarmsOff 05/02/2025 8:10 PM Marcos Lyon, CODYrm Bands OnID;Vcfxtulhe14/02/2025 8:00 AM Trudy Winston RNSide Rails/Bed Safety2/411 8:00 AM Trudy Caro RNBed PbthfiGig90/02/2025 8:00 AM Trudy Winston RNThe Patient's Environment is XwlcGav31/02/2025 8:00 AM Trudy Winston RN * MobilityQuestionAnswerDate of AssessmentAuthorProvider VpwikkprBop36/02/2025 8:00 AM Trudy Winston CMNkccxapgrq91/02/2025 12:00 PM Trudy Winston RNActivity PerformedResting in bed;Turn05/04/2025 12:00 PM Trudy Winston RNRepositionedTurns self05/04/2025 12:00 PM Trudy Winston RN Level of GjeifhmqzbUrzlfukwcua95/02/2025 8:00 AM Trudy Winston RNHead of Bed ElevatedSelf vfwixvlwo13/02/2025 12:00 PM Trudy Winston RNHeels/Feet Foot of bed umdygfot77/02/2025 8:00 AM Trudy Winston RNRange of Motion Active;All zeryvwngucq76/02/2025 8:00 AM Trudy Winston RNAnti-Embolism DevicesBilateral;Sequential compression devices, below knee05/04/2025 8:00 AM Trudy Winston, CODYnti-Embolism CuwuuvfssxfdEeg86/02/2025 8:00 AM Trudy Caro RNPatient's mobility zoneZone 6107/04/2024 8:00 AM Trudy Winston RNPositioning FrequencyAble to turn self05/04/2025 12:00 PM Trudy Caro RN * HygieneQuestionAnswerDate of AssessmentAuthorSkin CarePer self05/04/2025 8:00 AM Trudy Winston RNHygienePeri care;Per self05/04/2025 12:00 PM Trudy Caro RNOral CarePer self05/03/2025 8:00 AM Trudy Perez RN Level of LameuzvgyxUarzddsntnp89/02/2025 8:00 AM Trudy Winston RNIs Patient Total Care?No05/04/2025 8:00 AM Trudy Winston RNIncontinence Protective DevicesAbsorbent pad05/04/2025 8:00 AM Trudy Winston RN * PrecautionsQuestionAnswerDate of RzanzwexgxIaphjxTzvclmmdanpUoov54/02/2025 8:00 AM Trudy Winston RN * Family/Significant Other CommunicationQuestionAnswerDate of AssessmentAuthor Family/Significant Other HdjydxMvwpbudq05/01/2025 8:00 AM Trudy Perez RN * Comfort and Environment InterventionsQuestionAnswerDate of AssessmentAuthor GkfdatoInzgrqwctxpp49/02/2025 12:00 PM Trudy Winston RN * Safety Equipment at BedsideQuestionAnswerDate of AssessmentAuthorSafety Equipment at EjeugonFlaz29/31/2025 9:16 AM Jhoana Sims RN * ADL ScreeningQuestionAnswerDate of AssessmentAuthorDo you snore or wake up gasping for air?No05/01/2025 6:50 PM Ana Davies RNCan you bring in your CPAP/BiPAP from home?N/A1 6:50 PM Ana Davies RNPatient's Vision Adequate to Safely Complete Daily BmptjcfpksWcn68/30/2025 6:50 PM Ana Davies RNPatient's Judgment Adequate to Safely Complete Daily ActivitiesYes 05/01/2025 6:50 PM Ana Davies RNPatient's Memory Adequate to Safely Complete Daily UlhmqgfnhnXri79/30/2025 6:50 PM Ana Davies RNPatient Able to Express Needs/IujhcvkCam61/30/2025 6:50 PM Ana Davies RNDressing Eoiunlhobkm17/30/2025 6:50 PM Ana Davies RNWOWpcmgtleHwtbgagsuua83/30/2025 6:50 PM Ana Davies FJXsihdhhDiypdjilcff34/30/2025 6:50 PM Ana Davies RNQNUkfrkriQukpwqudyya26/30/2025 6:50 PM Ana Davies RNToiletingIndependent 05/01/2025 6:50 PM Ana Davies RNIn/Out RnjTfepstuqyxx71/30/2025 6:50 PM Ana Davies RNWalks in CmfaHehkwwinyca68/30/2025 6:50 PM Ana Davies RNWeakness of MbnyZcms01/30/2025 6:50 PM Ana Davies RNWeakness of Arms/IyzrfSugu01/30/2025 6:50 PM Ana Davies, BRYCEHearing - Right Ear Crotzrkpui93/30/2025 6:50 PM Ana Davies RNHearing - Left EarFunctional 05/01/2025 6:50 PM Aan Davies RNWhich is your dominant hand?Right 05/01/2025 6:50 PM Aan Davies, BRYCE * ConsultsQuestionAnswerDate of AssessmentAuthorSpiritual Care Consult NeededNo 05/01/2025 6:51 PM Ana Davies RNSocial Services Consult NeededNo 05/01/2025 6:51 PM Ana Davies RN * Therapy ConsultsQuestionAnswerDate of AssessmentAuthorPT Evaluation Needed1 05/01/2025 6:50 PM Ana Davies RNOT Evaluation Nlagtc385 6:50 PM Ana Davies RNSLP Evaluation Omdlvn043/30/2025 6:50 PM Ana Davies, BRYCE * Assistive DevicesQuestionAnswerDate of AssessmentAuthorAssistive Devices Ykulcnlemr66/30/2025 6:50 PM Ana Davies RN * University Fall Risk InterventionsQuestionAnswerDate of AssessmentAuthor University Fall Risk GseypwupdrqubPbvxqwig70/02/2025 8:00 AM Trudy Winston RN * Suicidal IdeationQuestionAnswerDate of AssessmentAuthor1. Wish to be (Lifetime)No05/01/2025 6:51 PM Ana Davies, BRYCE2. Non-Specific Active Suicidal Thoughts (Lifetime)No05/01/2025 6:51 PM Ana Davies RN * Pain AssessmentQuestionAnswerDate of AssessmentAuthorPain Interventions Zstjcccp53/02/2025 8:05 AM Trudy Winston RNPatient's Stated Pain GoalNo pain05/04/2025 8:05 AM Trudy Winston RNPain AssessmentNo/denies pain 05/04/2025 8:05 AM Trudy Winston RN * NutritionQuestionAnswerDate of AssessmentAuthorFluid Upvdttplesgu4304 05/04/2025 8:00 AM Trudy Winston RNDiet TypeHeart hoacems2005/04/2025 8:00 AM Trudy Winston RNFeedingAble to feed self05/04/2025 8:00 AM Trudy Caro, YAMoaaurdwTgex24/02/2025 8:00 AM Trudy Winston RN * Respiratory InterventionsQuestionAnswerDate of AssessmentAuthorRespiratory Interventions PerformedCough and deep mdjlnuz63/02/2025 8:05 AM Trudy Winston RN * Cough and Deep BreatheQuestionAnswerDate of AssessmentAuthorCough and Deep ZqifbltBik55/02/2025 8:05 AM Trudy Winston RN * IntegumentaryQuestionAnswerDate of AssessmentAuthorSkin ColorAppropriate for race05/04/2025 8:05 AM Trudy Winston RNSkin Condition/TempWarm;Dry 05/04/2025 8:05 AM Trudy Winston RNSkin JwwtcleyjGxygqr38/02/2025 8:05 AM Trudy Winston RNSkin TurgorNon-pyztfyj9005/04/2025 8:05 AM Trudy Winston RNIntegumentary (WDL)X107/04/2024 8:05 AM Trudy Winston RN * QuestionAnswerDate of AssessmentAuthorUrine ColorYellow/straw05/04/2025 10:47 AM Trudy Winston RNUrine QzqhyvjdgvVdgel71/02/2025 10:47 AM Trudy Winston RNUrine OdorNo odor05/04/2025 10:47 AM Trudy Winston RN * QuestionAnswerDate of AssessmentAuthorPatient Goal for Treatmentdischarge 05/04/2025 8:05 AM Trudy Winston RN * Patient Strengths/Problem AreasQuestionAnswerDate of AssessmentAuthorStrengths (Must Choose Two)Communication Skills;Supportive Jimzph0905/01/2025 6:51 PM Ana Chang RNProblem AreasHealth Problems;Physical Yjgdyl0105/01/2025 6:51 PM Ana Davies RN * Environment of Care ChecklistQuestionAnswerDate of AssessmentAuthorWere suicide precautions explained to the patient?No05/02/2025 9:16 AM Jhoana Sims RNPotentially harmful objects out of patient reach?Yes05/02/2025 9:16 AM Jhoana Sims RNPersonal belongings secured?Yes05/02/2025 9:16 AM Jhoana Del Castillo RNPatient dressed in hospital-provided attire only?Yes 05/02/2025 9:16 AM Jhoana Sims RNPatient care equipment (cords, cables, call bells, lines, and drains) shortened, removed, or accounted for?Yes 05/02/2025 9:16 AM Jhoana Sims RNRoom secured by RN per shift?Yes 05/02/2025 9:16 AM Jhoana Sims RN * Care Plan - Safety GoalsQuestionAnswerDate of AssessmentAuthorFree from fall injuryIdentify cognitive and physical deficits and behaviors that affect risk of falls;[place] fall precautions as indicated by assessment;Educate patient/family on patient safety, including physical limitations;Consider OT/PT consult to assist with strengthening/mobility;Instruct patient to call for assistance with activity based on assessment;Modify environment to reduce risk of injury;Assess patient frequently for physical needs05/02/2025 9:16 AM Jhoana Sims RN * Modified AldreteQuestionAnswerDate of ClcqwuzgwqAjxkffGpzsbtbr045/ 11:46 AM Ginny Camacho RNRespiration21 11:46 AM Ginny Camacho RNCirculation21 11:46 AM Ginny Camacho RN Lgyscykuddqfk274/31/2025 11:46 AM Ginny Camacho RNOxygen Saturation1 05/02/2025 11:46 AM Ginny Camacho RNModified Domonique Kcycp633 11:46 AM Ginny Camacho RN * Modified Malnutrition Screening Tool (MST)QuestionAnswerDate of Assessment AuthorHave you recently lost weight without trying? 7:45 PM Li Gallardo RNHave you been eating poorly because of a decreased appetite? 7:45 PM Li Damon RNOn home tube feeding or TPN?0 05/01/2025 7:45 PM iL Damon RNDoes patient have a stage 2-4 pressure ulcer? 7:45 PM Li Damon RN * Weight Loss ScoreAnswerDate of QuirbjhmxcSkbcts754/30/2025 7:45 PM Li Damon RN * Malnutrition ScoreAnswerDate of TuetuphtrhXejtdy066/30/2025 7:45 PM Li Damon RN documented as of this encounter Mental Status * [place] Agitation Sedation ScaleQuestionAnswerEntry DateAutrRichmond Agitation Sedation Scale (RASS) 11:40 AM Ginny Camacho RN * Modified AldreteQuestionAnswerEntry SzhnRgbkqpOmarwhii927/31/2025 11:46 AM Ginny Morin RNRespiration21 11:46 AM Ginny Camacho RN Wwpqoyngriu682/31/2025 11:46 AM Ginny Camacho RNConsciousness2 05/02/2025 11:46 AM Ginny Camcaho RNOxygen [id number] 11:46 AM Ginny Camacho RNModified Domonique [id number] 11:46 AM FELIXT Ginny Duff RN documented in this encounter Discharge Summaries * Gela Ness MD - 05/04/2025 4:00 PM EST Images from the original note were not included. Internal Medicine Discharge Summary Final Discharge Diagnosis: Acute on chronic HFrEF Admission Diagnosis: Acute on chronic heart failure with preserved ejection fraction (HFpEF) ([facility]) [I50.33] Hospital course: 75-year-old female with history of hypertension, diabetes, CKD stage 4, and CAD s/p CABG (2020) presented with progressive dyspnea on exertion, orthopnea, and leg edema. She was recently discharged from an outside hospital but developed worsening volume overload and shortness of breath after discharge. On admission, exam showed elevated JVP and bilateral lower extremity edema. BNP was 1236. Chest X-ray showed mild pulmonary edema. Echocardiogram revealed LVEF 55-60% with grade 2 diastolic dysfunction and RVSP of 59 mm Hg. Right heart catheterization on 05/02 showed elevated right-sided pressures and PCWP consistent with biventricular heart failure. She was started on IV Bumex 3 mg twice daily and strict input/output monitoring. Metolazone 2.5 mg was added PRN. Net negative fluid balance was achieved with improvement in dyspnea and edema. Cardiology followed for volume management and optimization of GDMT. Nephrology was consulted for CKD and diuretic management. Renal function remained stable throughout the stay (Cr 2.7 ? 2.55 mg/dL). The patient was successfully transitioned to oral diuretics and remained hemodynamically stable. She was saturating well on room air and ambulating independently at discharge. To follow up with Nephrology and Cardiology as outpatient. Surgical, Invasive or Diagnostic Procedures Done During Admission: Cardiac Cath Consultations During Admission: Cardiology and Nephrology Dear DO Perdomo Sharon is advised to follow up with you within 1-2 weeks. Items to follow up in ambulatory setting: Follow-up serial CBCs and Follow-up serial BMPs Follow-up with: Cardiology and Nephrology Scheduled appointments: Future Appointments Date Time Provider Department Center 05/20/2025 10:00 AM Emilia To CNP [facility] Your medication list PAUSE taking these medications Instructions Last Dose Given Next Dose Due insulin glargine 100 unit/mL (3 mL) injection pen Wait to take this until your doctor or other care provider tells you to start again. Commonly known as: Lantus What changed: when to take this reasons to take this START taking these medications Instructions Last Dose Given Next Dose Due sodium bicarbonate 650 mg tablet Take 1 tablet (650 mg) by mouth two times daily for 197 doses. CHANGE how you take these medications Instructions Last Dose Given Next Dose Due bumetanide 1 mg tablet Commonly known as: Bumex What changed: medication strength how much to take Take 3 tablets (3 mg) by mouth two times daily. hydrALAZINE 50 mg tablet Commonly known as: Apresoline What changed: when to take this TAKE 1 TABLET BY MOUTH TWO TIMES DAILY. metOLazone 2.5 mg tablet Commonly known as: Zaroxolyn What changed: See the new instructions. Take 1 tablet (2.5 mg) by mouth if needed each day (daily as needed for shortness of breath or >2 pound weight gain.). metoprolol tartrate 50 mg tablet Commonly known as: Lopressor What changed: how much to take Take 1.5 tablets (75 mg) by mouth in the morning and at bedtime. CONTINUE taking these medications Instructions Last Dose Given Next Dose Due allopurinol 100 mg tablet Commonly known as: Zyloprim amLODIPine 10 mg tablet Commonly known as: Norvasc TAKE 1 TABLET BY MOUTH EVERY DAY aspirin 81 mg EC tablet atorvastatin 40 mg tablet Commonly known as: Lipitor TAKE 1 TABLET BY MOUTH EVERYDAY AT BEDTIME ergocalciferol 1.25 MG (67011 Units) capsule Commonly known as: Vitamin D-2 ferrous sulfate 325 (65 Fe) MG tablet folic acid 1 mg tablet Commonly known as: Folvite isosorbide mononitrate ER 30 mg 24 hr tablet Commonly known as: Imdur Take 1 tablet (30 mg) by mouth once daily as directed. Do not crush or chew. levothyroxine 50 mcg tablet Commonly known as: Synthroid, Levoxyl Take 1.5 tablets (75 mcg) by mouth in the morning. midodrine 5 mg tablet Commonly known as: Proamatine Take 1 tablet (5 mg) by mouth if needed (as needed for orthostatic hypotension). nitroglycerin 0.4 mg SL tablet Commonly known as: Nitrostat Place 1 tablet (0.4 mg) under the tongue every 5 (five) minutes if needed for chest pain. potassium chloride CR 20 mEq ER tablet Commonly known as: Klor-Con M20 STOP taking these medications doxazosin 4 mg tablet Commonly known as: Cardura Where to Get Your Medications These medications were sent to [facility]/pharmacy #[id number] - [place], [place] - [address] [place] [id number] bumetanide 1 mg tablet levothyroxine 50 mcg tablet metOLazone 2.5 mg tablet sodium bicarbonate 650 mg tablet Claudia is allergic to erythromycin, erythromycin base, hydromorphone, penicillins, and spironolactone. Disposition: Home or Self Care () Discharge Condition: Stable Code Status: Full Code Diagnostic Results Hematology: Results from last 7 days Lab Units 05/04/25 0802 05/03/25 0715 WBC AUTO 10*3/uL 8.26 9.33 HEMOGLOBIN g/dL 8.6* 8.8* HEMATOCRIT % 26.0* 26.5* MCV fL 90.0 89.5 PLATELETS AUTO 10*3/uL 173 180 Chemistry: Results from last 7 days Lab Units 05/04/25 0802 05/03/25 0715 05/02/25 0546 05/02/25 0024 SODIUM mmol/L 138 138 138 137 POTASSIUM mmol/L 4.0 4.0 3.9 3.9 CHLORIDE mmol/L 107 108* 108* 106 CO2 mmol/L 21 20* 21 21 BUN mg/dL 64* 61* 60* 58* CREATININE mg/dL 2.55* 2.76* 2.77* 2.85* GLUCOSE mg/dL 122* 113* 147* 146* MAGNESIUM mg/dL -- -- -- 2.1 CALCIUM mg/dL 8.6 8.6 8.6 8.5* PHOSPHORUS mg/dL -- 4.2 -- -- No lab exists for component: AFIO2 , APHT , APCOT , APOT , ATCO2 , CK , ALB , IBILI Test Results Pending At Discharge: Diet at the time of discharge: regular diet Nutrition Screen Activity: Patient currently has no discharge activity orders Objective Blood pressure 135/67, pulse 73, temperature 37 ??C (98.6 ??F), temperature source Temporal, resp. rate 17, height 1.422 m (4' 8 ), weight 57.6 kg (127 lb), SpO2 96%. Cardiology: Normal rate, regular rhythm. Lungs: Clear to auscultation, no wheezes, rales or rhonchi, symmetric air entry. Abdomen: Soft, non tender, non distended. Total time for discharge - review of data, exam, discussion with providers and care-team, med-rec and orders, arranging follow up, counseling of patient and/or family and documentation was 60 minutes. Signed Gela Ness MD PGY-1 This note was, at least in part, completed using a voice medical detailist system. Every effort was made to ensure accuracy. However, inadvertent computerized medical detailist errors may be present [facility] Medicine 05/04/2025 6:58 PM CC: DO Leanne Cosigned by Eh Higuera MD at 05/06/2025 8:06 AM EST Associated attestation - Eh Higuera MD - 05/06/2025 8:06 AM EST By using the attestations below, the signing clinician agrees that I have read and verify that thedocumentation has been personally reviewed by me and ensure that the documentation accurately reflects the encounter. GC: I personally saw this patient on the day of the encounter, performed the caceres portion(s) of the service and participated in the management and confirm the resident's documentation. Please note there may be an additional personal documentation from me. Additional Comments: Need close follow up with Cardiology (already scheduled) and [facility]phrology ([facility] documented in this encounter Discharge Instructions * Discharge Instructions* Gela Ness MD - 05/03/2025 3:29 PM EDT Discharge instructions: 1- please start taking Bumex 3 mg two times daily 2-please start taking sodium bicarbonate 650 mg bid 3- please take metolazone 2.5 daily as needed for shortness of breath or >2 pound weight gain 4-please continue other medications as prescribed 5-please follow up with pcp , cardiology and nephrology * Discharge Instr - Activity* Brooklyn Madrigal RN - 05/04/2025 2:35 PM EST Activity as tolerated * Discharge Instr - Diet* Brooklyn Madrigal RN - 05/04/2025 2:33 PM EST at restriction: Heart Healthy/HTN, CABG,Stroke, (2gNA, low fat, low cholesterol) Fluid: 240ml/tray Fluid restriction 1800 mls Supplements: Boost glucose control with dinner * Discharge Instr - Other Orders* Brooklyn Madrigal RN - 05/04/2025 2:32 PM EST *Monitor daily weights, fluid restriction 1.5-2Liters/day *Call Cardiology office for weight gain of 2 pounds in 1 day or 5 pounds in 1 week, increased leg swelling, shortness of breath or shortness of breath at night and having to sleep sitting up taller/more pillows than normal or in recliner. [phone] documented in this encounter Medications at Time of Discharge MedicationSigDispense QuantityRefillsLast FilledStart DateEnd Date hydrALAZINE (Apresoline) 50 mg tablet Indications:Essential (primary) hypertensionTAKE 1 TABLET BY MOUTH TWO TIMES DAILY. 180 tablet metoprolol tartrate (Lopressor) 50 mg tablet Indications:Essential (primary) hypertensionTake 1.5 tablets (75 mg) by mouth in the morning and at bedtime.04/15/2025 midodrine (Proamatine) 5 mg tablet Indications:Orthostatic hypotensionTake 1 tablet (5 mg) by mouth if needed (as needed for orthostatic hypotension). 90 tablet allopurinol (Zyloprim) 100 mg tablet TAKE 1 TABLET BY MOUTH ONCE DAILY FOR 90 DAYS amLODIPine (Norvasc) 10 mg tablet Indications:Essential (primary) hypertensionTAKE 1 TABLET BY MOUTH EVERY DAY 90 tablet aspirin 81 mg EC tablet Take 1 tablet every day by oral route. bumetanide (Bumex) 1 mg tablet Indications:Chronic diastolic heart failure (CMS/HCC)Take 3 tablets (3 mg) by mouth two times daily. 90 tablet ergocalciferol (Vitamin D-2) 1.25 MG (79001 UT) capsule Take 1 capsule by mouth 1 (one) time per week. ferrous sulfate 325 (65 Fe) MG tablet TAKE 1 TABLET BY MOUTH EVERY OTHER DAY FOR 90 DAYS folic acid (Folvite) 1 mg tablet Take 1 mg by mouth in the morning. insulin glargine (Lantus) 100 unit/mL (3 mL) pen Inject under the skin.11/05/2019 isosorbide mononitrate ER (Imdur) 30 mg 24 hr tablet Indications:Coronary artery disease involving solomon coronary artery of solomon heart without angina pectorisTake 1 tablet (30 mg) by mouth once daily as directed. Do not crush or chew. 90 tablet levothyroxine (Synthroid, Levoxyl) 50 mcg tablet Indications:GoiterTake 1.5 tablets (75 mcg) by mouth in the morning. 45 tablet metOLazone (Zaroxolyn) 2.5 mg tablet Indications:Essential (primary) hypertensionTake 1 tablet (2.5 mg) by mouth if needed each day (daily as needed for shortness of breath or >2 pound weight gain.). 90 tablet 111512/08/2024 nitroglycerin (Nitrostat) 0.4 mg SL tablet Indications:Coronary artery disease of solomon artery of solomon heart with stable angina pectorisPlace 1 tablet (0.4 mg) under the tongue every 5 (five) minutes if needed for chest pain. 25 tablet potassium chloride CR (Klor-Con M20) 20 mEq ER tablet Take 40 mEq by mouth in the morning. sodium bicarbonate 650 mg tablet Indications:Chronic diastolic heart failure (CMS/HCC)Take 1 tablet (650 mg) by mouth two times daily for 197 doses. 60 tablet 311502/03/2026documented as of this encounter Progress Notes * MACARIO Leon - 05/04/2025 3:26 PM EST Pt has DC orders. SS consult for CHF. Trudy RN talked to pt, she's had HF for around 6 years and is confident in managing everything herself. * Johnny Hines MD - 05/04/2025 11:51 AM EST Images from the original note were not included. Nephrology Progress Note Patient : Claudia Polo; 75 y.o. Location: 3186/3186-01 Attending: Eh Higuera MD Admit Date: 05/01/2025 Hospital Day: 3 Reason for Consult: ORI on CKD stage 4, diuretic management. Subjective: History of present illness: Claudia Polo is a 75 y.o. female with PMH significant for CKD stage IV (baseline creatinine appears to be around 2-2.4), type 2 diabetes mellitus, and essential hypertension who was admitted to [facility] as a transfer from [facility] on 05/01/2025 after she initially presented with increased shortness of breath and swelling in the abdomen/lower extremities concerning for CHF exacerbation. Ofnote, patient had a cardiac catheterization back in 2020 which demonstrated severe three-vessel disease. Following admission, cardiology was consulted and patient underwent right heart catheterization demonstrating mean pulmonary arterial pressure of 42, and a wedge pressure of 31. Patient also had echocardiogram which demonstrated EF of 63%. Labs on admission demonstrated creatinine 2.85/BUN 58.Nephrology service was consulted for management of ORI and diuretics. Interval history: 05/04/25 Patient seen and examined at the bedside this morning, afebrile and hemodynamically stable. No acute events overnight. Patient was not able to complete home O2 evaluation yesterday. Currently saturating well on room air. Denies chest pain, endorses shortness of breath with exertion. Objective: Input/Output: Intake/Output Summary (Last 24 hours) at 05/04/2025 1151 Last data filed at 05/04/2025 1047 Gross per 24 hour Intake 960 ml Output 1950 ml Net -990 ml I/O last 3 completed shifts: In: 1200 (20.8 mL/kg) [P.O.:1200] Out: 1800 (31.2 mL/kg) [Urine:1800 (0.9 mL/kg/hr)] Weight: 57.6 kg Vital signs: Temperature: Temp: 36.8 ??C (98.2 ??F) TMax: Temp (24hrs), Av.6 ??C (97.9 ??F), Min:36.3 ??C (97.3 ??F), Max:36.8 ??C (98.2 ??F) Respirations: Resp: 16 Pulse: Heart Rate: 72 BP: BP: 158/51 BP Range: Systolic (24hrs), Av , Min:139 , Max:158 Diastolic (24hrs), Av, Min:47, Max:75 Wt Readings from Last 3 Encounters: 05/04/25 57.6 kg (127 lb) 05/01/25 58.1 kg (128 lb) 04/15/25 56.2 kg (124 lb) Physical Exam Constitutional: General: She is not in acute distress. Appearance: She is not ill-appearing. HENT: Head: Normocephalic and atraumatic. Eyes: General: No scleral icterus. Cardiovascular: Rate and Rhythm: Normal rate and regular rhythm. Heart sounds: Gallop present. S3 sounds present. Pulmonary: Effort: Pulmonary effort is normal. No respiratory distress. Breath sounds: Normal breath sounds. No wheezing or rales. Abdominal: General: Abdomen is flat. Palpations: Abdomen is soft. Musculoskeletal: Right lower leg: No edema. Left lower leg: No edema. Skin: General: Skin is warm and dry. Neurological: General: No focal deficit present. Mental Status: She is alert and oriented to person, place, and time. Psychiatric: Mood and Affect: Mood normal. Current Medications: Scheduled Meds: allopurinol, 100 mg, oral, Nightly amLODIPine, 10 mg, oral, Daily aspirin, 81 mg, oral, q AM atorvastatin, 40 mg, oral, Nightly bumetanide, 3 mg, intravenous, BID heparin (porcine), 5,000 Units, subcutaneous, q12h PONCHO hydrALAZINE, 50 mg, oral, BID insulin lispro, 0-5 Units, subcutaneous, TID with meals And insulin lispro, 0-4 Units, subcutaneous, Nightly isosorbide mononitrate ER, 30 mg, oral, Once Daily levothyroxine, 75 mcg, oral, Daily metOLazone, 2.5 mg, oral, Once metoprolol tartrate, 75 mg, oral, BID potassium chloride CR, 40 mEq, oral, Daily sodium bicarbonate, 650 mg, oral, BID Continuous Infusions: PRN Meds: PRN medications: acetaminophen, glucose OR dextrose 50 % in water (D50W), midodrine, sennosides-docusate sodium Outpatient Medications: Medication Documentation Review Audit Reviewed by Li Cabral RN (Registered Nurse) on 05/01/25 at 1945 Medication Order Taking? Sig Documenting Provider Last Dose Status allopurinol (Zyloprim) 100 mg tablet [id number] TAKE 1 TABLET BY MOUTH ONCE DAILY FOR 90 DAYS Historical Provider, Active amLODIPine (Norvasc) 10 mg tablet [id number] TAKE 1 TABLET BY MOUTH EVERY DAY Bran Fish MD Active aspirin 81 mg EC tablet [id number] Take 1 tablet every day by oral route. Historical Provider, Active atorvastatin (Lipitor) 40 mg tablet [id number] TAKE 1 TABLET BY MOUTH EVERYDAY AT BEDTIME Bran Fish MD Active bumetanide (Bumex) 2 mg tablet [id number] Take 2 tablets (4 mg) by mouth two times daily. Patient taking differently: Take 2 mg by mouth in the morning. Bran Fish MD Active doxazosin (Cardura) 4 mg tablet [id number] TAKE 1 AND 1/2 TABLETS BY MOUTH TWICE A DAY Patient not taking: Reported on 05/01/2025 Bran Fish MD Active ergocalciferol (Vitamin D-2) 1.25 MG (95952 UT) capsule [id number] Take 1 capsule by mouth 1 (one) time per week. Historical ProviderMD Active ferrous sulfate 325 (65 Fe) MG tablet [id number] TAKE 1 TABLET BY MOUTH EVERY OTHER DAY FOR 90 DAYS Historical Provider, Active folic acid (Folvite) 1 mg tablet [id number] Take 1 mg by mouth in the morning. Historical ProviderMD Active hydrALAZINE (Apresoline) 50 mg tablet [id number] TAKE 1 TABLET BY MOUTH TWO TIMES DAILY. Patient taking differently: Take 50 mg by mouth four times daily. Emilia To CNP Active insulin glargine (Lantus) 100 unit/mL (3 mL) pen [id number] Inject under the skin. Patient taking differently: Inject under the skin if needed. Historical Provider, Active isosorbide mononitrate ER (Imdur) 30 mg 24 hr tablet [id number] Take 1 tablet (30 mg) by mouth once daily as directed. Do not crush or chew. Bran Fish MD Active levothyroxine (Synthroid, Levoxyl) 50 mcg tablet [id number] Take 1 tablet by mouth in the morning. Patient taking differently: Take 75 mcg by mouth in the morning. Historical ProviderMD Active metOLazone (Zaroxolyn) 2.5 mg tablet [id number] TAKE 1 TABLET BY MOUTH IF NEEDED FOR SWELLING OR WEIGHT GAIN Patient not taking: Reported on 05/01/2025 Bran Fish MD Active metoprolol tartrate (Lopressor) 50 mg tablet [id number] Take 1.5 tablets (75 mg) by mouth in the morning and at bedtime. Patient taking differently: Take 50 mg by mouth in the morning and at bedtime. Emilia To CNP Active midodrine (Proamatine) 5 mg tablet [id number] Take 1 tablet (5 mg) by mouth if needed (as needed for orthostatic hypotension). Patient not taking: Reported on 05/01/2025 Bran Fish MD Active nitroglycerin (Nitrostat) 0.4 mg SL tablet [id number] Place 1 tablet (0.4 mg) under the tongue every 5 (five) minutes if needed for chest pain. Bran Fish MD Active potassium chloride CR (Klor-Con M20) 20 mEq ER tablet [id number] Take 40 mEq by mouth in the morning. Historical Provider, Active Labs: I have reviewed the patient's most recent labs as listed below: Chemistry: Lab Results Component Value Date NA 138 05/04/2025 K 4.0 05/04/2025 CL 107 05/04/2025 CO2 21 05/04/2025 CO2 27 07/18/2020 ANIONGAP 14 05/04/2025 BUN 64 (H) 05/04/2025 CREATININE 2.55 (H) 05/04/2025 EGFR 19.2 (L) 05/04/2025 GLU 81 07/18/2020 CALCIUM 8.6 05/04/2025 MG 2.1 05/02/2025 PHOS 4.2 05/03/2025 PTH 105 (H) 05/03/2025 ALBUMIN 3.2 (L) 07/11/2020 PROT 6.0 07/11/2020 AST 18 07/11/2020 ALT 18 07/11/2020 BILITOT 0.3 07/11/2020 ALKPHOS 57 07/11/2020 Hematology & Iron studies: Lab Results Component Value Date WBC 8.26 05/04/2025 HGB 8.6 (L) 05/04/2025 HCT 26.0 (L) 05/04/2025 MCV 90.0 05/04/2025 PLT 173 05/04/2025 IRON 53 05/02/2025 TIBC 235 (L) 05/02/2025 UIBC 182.0 05/02/2025 IRONSAT 23 05/02/2025 FERRITIN 204.0 05/02/2025 Urine chemistry Lab Results Component Value Date PROTUR 105.9 05/03/2025 PROTUR 30 (A) 05/03/2025 CREATUR 40.0 05/03/2025 Urinalysis & Microscopy: Lab Results Component Value Date COLORU Light-Yellow 05/03/2025 CLARITYU Clear 05/03/2025 SPECGRAVU 1.008 (L) 05/03/2025 ASHLYN 5.0 05/03/2025 PROTUR 105.9 05/03/2025 PROTUR 30 (A) 05/03/2025 LEUKOCYTESU Negative 05/03/2025 NITRITEU Negative 05/03/2025 GLUCOSEU Normal 05/03/2025 KETONESU Negative 05/03/2025 UROBILINOGEN Normal 05/03/2025 BLOODU Negative 05/03/2025 RBCU 3-5 (A) 05/03/2025 WBCU 0-2 05/03/2025 SQUAMEPIU Few 05/03/2025 MUCUSU Occasional 05/03/2025 Urine Eosinophils: No components found for: UEOS Serology & Other labs: No results found for: NEERU , ANATITER , ANCA , RF , CCP , RO , HEPCAB , HEPBAGC1 , HEPBAGC2 , HEPBAGINTERP , HEPBSAG , HEPBCOREAB BNP: Lab Results Component Value Date BNP 1,236 (H) 05/02/2025 NEERU: No results found for: NEERU SPEP:No results found for: PROT UPEP: No components found for: LABPE C3: No results found for: C3 C4: No results found for: C4 MPO ANCA: No components found for: MPO PR3 ANCA: No components found for: PR3 Anti-GBM: No components found for: GBMABIGG Hep BsAg: No results found for: HEPBSAG Hep C AB: No results found for: HEPCAB Radiology: ECG 12 lead Normal sinus rhythm Abnormal QRS-T angle, consider primary T wave abnormality Abnormal ECG When compared with ECG of 14-JUL-2020 06:44, ST no longer elevated in Lateral Nonspecific T wave abnormality now evident in Lateral Confirmed by Chela CARRERO, LUIS Salvador ([id number]) on 05/02/2025 4:37:20 PM XR chest 1 view Narrative: HISTORY: Shortness of breath COMPARISON: 07/27/2020 FINDINGS: Portable AP upright view of the chest was performed. 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 Heart size is mildly enlarged but stable. Increased prominence of interstitial markings suggestive of pulmonary edema. Atelectasis or scarring in the left midlung. No significant pleural effusion or pneumothorax. Surgical clips overlie the right upper quadrant. Impression: * Mild pulmonary edema. Electronically signed: Julio Andrew. Complete Echo (TTE) w/wo Imaging Agent, Strain, 3D, Bubble Study 1 1 [facility] Heart Station [address] [place] [address] [phone] (fax) Echocardiogram-[facility] Name: CLAUDIA POLO Study Date: 05/02/2025 07:57 AM B/P: 164 mmHg/64 mmHg HR: 72 bpm Date of : 1950 Location: [facility] Height: 56 in. Age: 75 year(s) Patient Room: 3186 Weight: 138 lb. Gender: Female Patient Status: InPt BSA: 1.52 m2 Indication: CABG, Congestive Heart Failure, Hypertension Examination: Echocardiogram (Complete) Image Quality: Good Patient Consent: Procedure explained to patient Conclusions Left Ventricle: The left ventricle is normal size. Global left ventricular systolic function is normal. The calculated Biplane EF is 63 %. Left ventricular wall thickness is normal. No regional wall motion abnormality. Unable to assess diastolic dysfunction. Right Ventricle: The right ventricle is normal in size. Mildly reduced right ventricular systolic function. Doppler studies suggest severely elevated right sided pressures. Left Atrium: The left atrium is normal in size. Mitral Valve: Mild mitral regurgitation. Mild mitral valve stenosis. There is moderate mitral annular calcification. Tricuspid Valve: Moderate tricuspid regurgitation. Measurements Left Ventricle Label Value Normal Value LVOTd 1.7 cm (18cm - 20cm) LVOT VTI 30.7 cm (18cm - 22cm) LVOT PGmax 6 mmHg LVDd, 2D 4.71 cm (3.9cm - 5.3cm) LVDs, 2D 3.08 cm (2.1cm - 4cm) IVSd, 2D 0.86 cm (0.6cm - 1.1cm) LVPWd, 2D 1.11 cm (0.6cm - 0.9cm) LVEF, BP 63 % (55% - 65%) LV Mass, 2D ASE 161.67 g LV Mass Index, 2D ASE 106.4 g/m?? (44g/m?? - 88.4g/m??) RWT, MM 0.47 (0 - 0.42) LVSVI, 2D 43.4 ml/m2 LVOT PGmean 3 mmHg LVSV_LVOT 70 ml Right Ventricle Label Value Normal Value RVDd, 2D 3.66 cm (1.9cm - 3.8cm) TAPSE 1.5 cm Left Atrium Label Value Normal Value LA Volume, BP 51 ml (22ml - 52ml) LADs, 2D 3.3 cm (2.7cm - 3.8cm) LAESV index, BP 33.6 ml/m?? Right Atrium Label Value Normal Value RA Area 15.7 cm?? Aortic Valve Label Value Normal Value AV DVI 0.66 AV VTI 44.8 cm Mitral Valve Label Value Normal Value MV E Vmax 1.87 m/s MV A Vmax 1.34 m/s MV E/A 1.4 MV E/E' lateral 26.9 MV E' lateral 0.07 m/s Tricuspid Valve Label Value Normal Value RA Pressure 8 mmHg RVSP 72 mmHg Aorta Label Value Normal Value AoRoot, 2D 2.7 cm (1.4cm - 3.8cm) Great Vessels Label Value Normal Value IVC 2 cm (1.2cm - 2.3cm) Valvular Assessment LVOT 0.7 - 1.1 m/sec Aortic Valve 1.0 - 1.7 m/sec Mitral Valve 0.6 - 1.3 m/sec Tricuspid Valve 0.3 - 0.7 m/sec Pulmonic Valve 0.6 - 0.9 m/sec Regurgitation No Mild Moderate No Stenosis No Mild No No Max Velocity 1.23 m/sec 1.87 m/s 1.87 m/sec Max Gradient 14.00 mmHg 13.00 mmHg Mean Gradient 8.00 mmHg 6.00 mmHg Valve Area 1.5 cm?? 2.3 cm?? Findings Left Ventricle: The left ventricle is normal size. Global left ventricular systolic function is normal. The calculated Biplane EF is 63 %. Left ventricular wall thickness is normal. No regional wall motion abnormality. Unable to assess diastolic dysfunction. Right Ventricle: The right ventricle is normal in size. Mildly reduced right ventricular systolic function. Doppler studies suggest severely elevated right sided pressures. Left Atrium: The left atrium is normal in size. Right Atrium: The right atrium is normal in size. Mitral Valve: Mild mitral regurgitation. Mild mitral valve stenosis. There is moderate mitral annular calcification. Mitral Valve Measurements MV Vmax: 1.80 m/s. MV Vmean: 1.19 m/s. MV PGmax: 13.00 mmHg. MV PGmean: 6.00 mmHg. Aortic Valve: The aortic valve is normal. No aortic valve regurgitation. No aortic valve stenosis. The aortic valve is trileaflet. Tricuspid Valve: The tricuspid valve leaflets are thickened. Moderate tricuspid regurgitation. No tricuspid valve stenosis. Pulmonic Valve: Normal pulmonary valve. No pulmonary regurgitation. No pulmonic valve stenosis. Aorta: The aortic root exhibits normal size. Great Vessels: IVC: The IVC is normal in size. Respiratory inspiration less than 50%. Pericardium: No pericardial effusion. Procedure Staff Reading Group: [facility] Referring Physician: JOHN PERDOMO Audio Video Mechanic: Jessica Bain [facility] Ordering Physician: EH HIGUERA Cardiac catheterization Cardiovascular Laboratory Report FINAL IMPRESSIONS: Moderately elevated right-sided heart pressures and severely elevated pulmonary capillary wedge pressure consistent with biventricular congestive heart failure Normal transpulmonary gradient along with the elevated wedge consistent with postcapillary pulmonary venous hypertension Giant V waves on wedge pressure tracing suggestive of significant diastolic dysfunction and/or mitral regurgitation Severe systemic hypertension Normal cardiac output/cardiac index RECOMMENDATIONS: Uptitrate IV diuresis, monitor strict inputs and outputs and daily weights Aggressive cardiovascular risk factor modification A complete echocardiogram to evaluate ejection fraction, wall motion abnormalities, and valvular function Optimal medical therapy for heart failure with preserved ejection fraction should include an SGLT2 inhibitor and spironolactone if feasible from a renal standpoint Further recommendations deferred to the inpatient services PROCEDURES: Ultrasound-guided access to the right internal jugular vein, right heart catheterization METHODS: After risks, benefits, and alternatives were explained, written informed consent was obtained. The patient was prepped and draped in usual sterile fashion over the right neck. Using 1% lidocaine solution, local infiltration anesthesia was achieved. Using a modified Seldinger technique, a micropuncture kit, and under ultrasound guidance, access to the right internal jugular vein was obtained. This was exchanged out for a 6 [place] 11 cm sheath. Right heart catheterization was performed using a Dumont catheter via the venous sheath. Pressures were measured in the right atrium, right ventricle, pulmonary artery, and pulmonary capillary wedge positions. Oxygen saturations were obtained and cardiac output/cardiac index was calculated using the modified Macarena principle. The Dumont catheter was removed. After reviewing the hemodynamic data, it was elected to conclude the procedure. All catheters removed. The venous sheath was removed with application of manual pressure to achieve optimal hemostasis. Overall the patient tolerated the procedure well. There were no overt complications. He was to be transferred to the holding area in stable condition. FINDINGS: Hemodynamics: RA 16 RV 56/9, 15 PA 56/27 [42] PCWP 31 TPG 11 AO 161/58 [98] Cardiac output /cardiac index 5.00/3.29 AO sat /PA sat 95%/64% INDICATIONS: Acute on chronic heart failure with preserved ejection fraction Assessment: ORI in the setting of CKD stage 4. Ur protein/Cr ratio: 2.65. [id number] heart failure exacerbation. Triple-vessel CAD demonstrated on cardiac catheterization (2020). Insulin-dependent type 2 diabetes mellitus. Hypothyroidism. Essential hypertension. Iron-deficiency anemia. Plan: From Nephrology standpoint, patient ok to discharge with Bumex 3 mg oral twice daily, and metolazone 2.5 mg that she can take daily as needed for shortness of breath or >2 pound weight gain. Heart failure/GDMT management per cardiology service. Rest of medical management per primary team. Nephrology service will continue to follow as long as patient remains in-hospital. Thank you for the consultation. Please do not hesitate to contact us for any questions/concerns. Wewill continue to follow along with you. Johnny Hines MD PGY-3, Internal Medicine [facility] Cosigned by Jazzmine Kelsey MD at 05/04/2025 12:20 PM EST Associated attestation - Jazzmine Kelsey MD - 05/04/2025 12:20 PM EST I personally saw and examined the patient on the same date of service as resident/fellow Johnny Hines MD. I discussed the findings and therapeutic plan with the Johnny Hines MD. I agree with the documentation, except for any edits/updates below. Outpatient follow-up with nephrology on discharge along with repeat labs in 1 to 2 weeks Continue to monitor kidney function and electrolytes. Avoid nephrotoxic medications. Jazzmine Kelsey MD Faculty, Division of Nephrology, Department of Medicine, [facility]. * Robson White MD - 05/04/2025 7:08 AM EST Images from the original note were not included. Cardiology Progress Note Subjective 05/04: Seen and examined at bedside. No acute events overnight. Denies acute complaint this morning. 05/03: Patient seen and examined at bedside this morning. Afebrile and hemodynamically stable with noted elevations in BP, satting well on 1 L O2 via NC. 725 cc UOP over the past 24 hours. Creatinine 2.76 (2.77), and hemoglobin 8.8 (9). No acute events overnight. Denies chest pain or dyspnea. Discomfort at [facility] site with bruising on right neck. Feels a lot better. Awaiting nephro input. Subjective: Claudia Polo is a 75 y.o. female with a past medical history notable for hypertension, HFpEF, CAD s/p CABG 2020, hyperlipidemia, CKD 4, and diabetes who presents from [facility] cardiology clinic due to worsening dyspnea on exertion. She was seen in the cardiology clinic on 05/01 and was noted to have significant worsening dyspnea on exertion with desaturations on minimal exertion. She also was noted to have orthopnea, bilateral lower extremity edema and abdominal bloating. She also complains of chest pain relieved with sublingual nitroglycerin. 1 week prior she was noted to have signs of CHF exacerbation on CXR with reported dyspnea on exertion for which Bumex was increased to 2 mg twice daily. Patient continues to have worsening dyspnea with signs of fluid overload on exam (elevated JVP, bilateral lower extremity edema, etc...). Given worsening renal function and evidence of heart failure exacerbation, patient was transferred to our hospital for further evaluation and cardiology was consulted. Creatinine 2.77 (baseline around 2), BNP 1236, WBCs 10.6, hemoglobin 9 (8.5), labs otherwise unremarkable. Cardiac workup: Cardiac catheterization 07/2020 showed severe three-vessel coronary artery disease, she underwent CABG on 07/13/2020 and developed postoperative A-fib that converted medically. Echocardiogram 10/2024: LVEF 55 to 60%. Normal RV size and function. Mild biatrial dilation. Grade 2diastolic dysfunction with elevated filling pressures. Mild TR. Moderately elevated right-sided pressures with RVSP of 59 mmHg. Cardiac medications: Amlodipine 10 mg, aspirin 81 mg, atorvastatin 40 mg, Bumex 2 mg twice daily, hydralazine 50 mg 4 times daily, Imdur 30 mg, Lopressor 75 mg twice daily, midodrine 5 mg 3 times daily as needed, nitroglycerin as needed. Objective Current Medications[1] Objective: Patient Vitals for the past 24 hrs: BP Temp Temp src Pulse Resp SpO2 Weight 05/04/25 0443 -- -- -- -- -- -- 57.6 kg (127 lb) 05/04/25 0427 -- -- -- -- -- -- 57.8 kg (127 lb 6.4 oz) 05/04/25 0400 156/51 36.6 ??C (97.9 ??F) 71 16 99 % -- 05/04/25 0000 (!) 139/47 36.7 ??C (98.1 ??F) 70 18 96 % -- 05/03/25 2131 144/57 -- -- -- -- -- -- 05/03/252018 150/57 36.7 ??C (98.1 ??F) Temporal 73 20 98 % -- 05/03/252014 150/57 -- -- 73 21 97 % -- 05/03/25 1610 (!) 140/48 36.6 ??C (97.8 ??F) 72 19 95 % -- 05/03/25 1210 144/75 36.3 ??C (97.3 ??F) 77 18 93 % -- 05/03/25 0815 143/70 36.4 ??C (97.5 ??F) Temporal 72 16 97 % -- Physical Examination: Physical Exam Vitals reviewed. Cardiovascular: Rate and Rhythm: Normal rate and regular rhythm. Pulmonary: Effort: Pulmonary effort is normal. Musculoskeletal: Cervical back: Normal range of motion. Skin: General: Skin is warm. Capillary Refill: Capillary refill takes less than 2 seconds. Comments: Bruise on right neck Neurological: General: No focal deficit present. Mental Status: She is alert. Relevant Lab Results Encounter Date: 05/01/25 ECG 12 lead Result Value Ventricular Rate 74 Atrial Rate 74 VT Interval 168 QRS DURATION 68 QT Interval 410 QTC CALCULATION(BAZETT) 455 P [place] 64 R-[place] 15 T Wave [place] 103 Impression Normal sinus rhythm Abnormal QRS-T angle, consider primary T wave abnormality Abnormal ECG When compared with ECG of 14-JUL-2020 06:44, ST no longer elevated in Lateral Nonspecific T wave abnormality now evident in Lateral Confirmed by Chela CARRERO, LUIS Salvador (57) on 05/02/2025 4:37:20 PM No results found for: CKTOTAL , CKMB , CKMBINDEX , TROPONINI Complete Echo (TTE) w/wo Imaging Agent, Strain, 3D, Bubble Study Result Date: 05/02/2025 1 1 [facility] Heart Station [address] [place] [address] [phone] (fax) Echocardiogram-[facility] Name: CLAUDIA POLO Study Date: 05/02/2025 07:57 AM B/P: 164 mmHg/64 mmHg HR: 72 bpm Date of : 1950 Location: [facility] Height: 56 in. Age: 75 year(s) Patient Room: 3186 Weight: 138 lb. Gender: Female Patient Status:InPt BSA: 1.52 m2 Indication: CABG, Congestive Heart Failure, Hypertension Examination: Echocardiogram (Complete) Image Quality: Good Patient Consent: Procedure explained to patient Conclusions Left Ventricle: The left ventricle is normal size. Global left ventricular systolic function is normal. The calculated Biplane EF is 63 %. Left ventricular wall thickness is normal. No regional wall motionabnormality. Unable to assess diastolic dysfunction. Right Ventricle: The right ventricle is normalin size. Mildly reduced right ventricular systolic function. Doppler studies suggest severely elevated right sided pressures. Left Atrium: The left atrium is normal in size. Mitral Valve: Mild mitralregurgitation. Mild mitral valve stenosis. There is moderate mitral annular calcification. Tricuspid Valve: Moderate tricuspid regurgitation. Measurements Left Ventricle Label Value Normal Value LVOTd 1.7 cm (18cm - 20cm) LVOT VTI 30.7 cm (18cm - 22cm) LVOT PGmax 6 mmHg LVDd, 2D 4.71 cm (3.9cm - 5.3 cm) LVDs, 2D 3.08 cm (2.1cm - 4cm) IVSd, 2D 0.86 cm (0.6cm - 1.1cm) LVPWd, 2D 1.11 cm (0.6cm - 0.9cm) LVEF, BP 63 % (55% - 65%) LV Mass, 2D ASE 161.67 g LV Mass Index, 2D ASE 106.4 g/m?? (44g/m?? - 88.4g/m??) RWT, MM 0.47 (0 - 0.42) LVSVI, 2D 43.4 ml/m2 LVOT PGmean 3 mmHg LVSV_LVOT 70 ml Right Ventricle Label Value Normal Value RVDd, 2D 3.66 cm (1.9cm - 3.8cm) TAPSE 1.5 cm Left Atrium Label ValueNormal Value LA Volume, BP 51 ml (22ml - 52ml) LADs, 2D 3.3 cm (2.7cm - 3.8cm) LAESV index, BP 33.6ml/m?? Right Atrium Label Value Normal Value RA Area 15.7 cm?? Aortic Valve Label Value Normal Value AV DVI 0.66 AV VTI 44.8 cm Mitral Valve Label Value Normal Value MV E Vmax 1.87 m/s MV A Vmax 1.34m/s MV E/A 1.4 MV E/E' lateral 26.9 MV E' lateral 0.07 m/s Tricuspid Valve Label Value Normal ValueRA Pressure 8 mmHg RVSP 72 mmHg Aorta Label Value Normal Value AoRoot, 2D 2.7 cm (1.4cm - 3.8cm) Great Vessels Label Value Normal Value IVC 2 cm (1.2cm - 2.3cm) Valvular Assessment LVOT 0.7 - 1.1 m/sec Aortic Valve 1.0 - 1.7 m/sec Mitral Valve 0.6 - 1.3 m/sec Tricuspid Valve 0.3 - 0.7 m/sec Pulmonic Valve 0.6 - 0.9 m/sec Regurgitation No Mild Moderate No Stenosis No Mild No No Max Velocity 1.23 m/sec 1.87 m/s 1.87 m/sec Max Gradient 14.00 mmHg 13.00 mmHg Mean Gradient 8.00 mmHg 6.00 mmHg Valve Area 1.5 cm?? 2.3 cm?? Findings Left Ventricle: The left ventricle is normal size. Global left ventricular systolic function is normal. The calculated Biplane EF is 63 %. Left ventricular wall thickness is normal. No regional wall motion abnormality. Unable to assess diastolic dysfunction. Right Ventricle: The right ventricle is normal in size. Mildly reduced right ventricular systolic function. Doppler studies suggest severely elevated right sided pressures. Left Atrium: The left atrium is normal in size. Right Atrium: The right atrium is normal in size. Mitral Valve: Mild mitral regurgitation. Mild mitral valve stenosis. There is moderate mitral annular calcification. Mitral Valve Measurements MV Vmax: 1.80 m/s. MV Vmean: 1.19 m/s. MV PGmax: 13.00 mmHg. MV PGmean: 6.00 mmHg. Aortic Valve: The aortic valve is normal. No aortic valve regurgitation. No aortic valve stenosis. The aortic valve is trileaflet. Tricuspid Valve: The tricuspid valve leaflets are thickened. Moderate tricuspid regurgitation. No tricuspid valve stenosis. Pulmonic Valve: Normal pulmonary valve. No pulmonary regurgitation. No pulmonic valve stenosis. Aorta: The aortic root exhibits normal size. Great Vessels: IVC: The IVC is normal in size. Respiratory inspiration less than 50%. Pericardium: No pericardial effusion. Procedure Staff Reading Group: [facility] Referring Physician: JOHN PERDOMO Audio Video Mechanic: HALLE Jacob Ordering Physician: EH HIGUERA No nuclear medicine results found for the past 12 months Relevant Imaging Results ECG 12 lead Normal sinus rhythm Abnormal QRS-T angle, consider primary T wave abnormality Abnormal ECG When compared with ECG of 14-JUL-2020 06:44, ST no longer elevated in Lateral Nonspecific T wave abnormality now evident in Lateral Confirmed by Chela CARRERO, LUIS Salavdor (57) on 05/02/2025 4:37:20 PM XR chest 1 view Narrative: HISTORY: Shortness of breath COMPARISON: 07/27/2020 FINDINGS: Portable AP upright view of the chest was performed. 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 Heart size is mildly enlarged but stable. Increased prominence of interstitial markings suggestive of pulmonary edema. Atelectasis or scarring in the left midlung. No significant pleural effusion or pneumothorax. Surgical clips overlie the right upper quadrant. Impression: * Mild pulmonary edema. Electronically signed: Julio Andrew. Complete Echo (TTE) w/wo Imaging Agent, Strain, 3D, Bubble Study 1 1 [facility] Heart Station [address] [place] [address] [phone] (fax) Echocardiogram-[facility] Name: CLAUDIA POLO Study Date: 05/02/2025 07:57 AM B/P: 164 mmHg/64 mmHg HR: 72 bpm Date of : 1950 Location: [facility] Height: 56 in. Age: 75 year(s) Patient Room: 3186 Weight: 138 lb. Gender: Female Patient Status: InPt BSA: 1.52 m2 Indication: CABG, Congestive Heart Failure, Hypertension Examination: Echocardiogram (Complete) Image Quality: Good Patient Consent: Procedure explained to patient Conclusions Left Ventricle: The left ventricle is normal size. Global left ventricular systolic function is normal. The calculated Biplane EF is 63 %. Left ventricular wall thickness is normal. No regional wall motion abnormality. Unable to assess diastolic dysfunction. Right Ventricle: The right ventricle is normal in size. Mildly reduced right ventricular systolic function. Doppler studies suggest severely elevated right sided pressures. Left Atrium: The left atrium is normal in size. Mitral Valve: Mild mitral regurgitation. Mild mitral valve stenosis. There is moderate mitral annular calcification. Tricuspid Valve: Moderate tricuspid regurgitation. Measurements Left Ventricle Label Value Normal Value LVOTd 1.7 cm (18cm - 20cm) LVOT VTI 30.7 cm (18cm - 22cm) LVOT PGmax 6 mmHg LVDd, 2D 4.71 cm (3.9cm - 5.3cm) LVDs, 2D 3.08 cm (2.1cm - 4cm) IVSd, 2D 0.86 cm (0.6cm - 1.1cm) LVPWd, 2D 1.11 cm (0.6cm - 0.9cm) LVEF, BP 63 % (55% - 65%) LV Mass, 2D ASE 161.67 g LV Mass Index, 2D ASE 106.4 g/m?? (44g/m?? - 88.4g/m??) RWT, MM 0.47 (0 - 0.42) LVSVI, 2D 43.4 ml/m2 LVOT PGmean 3 mmHg LVSV_LVOT 70 ml Right Ventricle Label Value Normal Value RVDd, 2D 3.66 cm (1.9cm - 3.8cm) TAPSE 1.5 cm Left Atrium Label Value Normal Value LA Volume, BP 51 ml (22ml - 52ml) LADs, 2D 3.3 cm (2.7cm - 3.8cm) LAESV index, BP 33.6 ml/m?? Right Atrium Label Value Normal Value RA Area 15.7 cm?? Aortic Valve Label Value Normal Value AV DVI 0.66 AV VTI 44.8 cm Mitral Valve Label Value Normal Value MV E Vmax 1.87 m/s MV A Vmax 1.34 m/s MV E/A 1.4 MV E/E' lateral 26.9 MV E' lateral 0.07 m/s Tricuspid Valve Label Value Normal Value RA Pressure 8 mmHg RVSP 72 mmHg Aorta Label Value Normal Value AoRoot, 2D 2.7 cm (1.4cm - 3.8cm) Great Vessels Label Value Normal Value IVC 2 cm (1.2cm - 2.3cm) Valvular Assessment LVOT 0.7 - 1.1 m/sec Aortic Valve 1.0 - 1.7 m/sec Mitral Valve 0.6 - 1.3 m/sec Tricuspid Valve 0.3 - 0.7 m/sec Pulmonic Valve 0.6 - 0.9 m/sec Regurgitation No Mild Moderate No Stenosis No Mild No No Max Velocity 1.23 m/sec 1.87 m/s 1.87 m/sec Max Gradient 14.00 mmHg 13.00 mmHg Mean Gradient 8.00 mmHg 6.00 mmHg Valve Area 1.5 cm?? 2.3 cm?? Findings Left Ventricle: The left ventricle is normal size. Global left ventricular systolic function is normal. The calculated Biplane EF is 63 %. Left ventricular wall thickness is normal. No regional wall motion abnormality. Unable to assess diastolic dysfunction. Right Ventricle: The right ventricle is normal in size. Mildly reduced right ventricular systolic function. Doppler studies suggest severely elevated right sided pressures. Left Atrium: The left atrium is normal in size. Right Atrium: The right atrium is normal in size. Mitral Valve: Mild mitral regurgitation. Mild mitral valve stenosis. There is moderate mitral annular calcification. Mitral Valve Measurements MV Vmax: 1.80 m/s. MV Vmean: 1.19 m/s. MV PGmax: 13.00 mmHg. MV PGmean: 6.00 mmHg. Aortic Valve: The aortic valve is normal. No aortic valve regurgitation. No aortic valve stenosis. The aortic valve is trileaflet. Tricuspid Valve: The tricuspid valve leaflets are thickened. Moderate tricuspid regurgitation. No tricuspid valve stenosis. Pulmonic Valve: Normal pulmonary valve. No pulmonary regurgitation. No pulmonic valve stenosis. Aorta: The aortic root exhibits normal size. Great Vessels: IVC: The IVC is normal in size. Respiratory inspiration less than 50%. Pericardium: No pericardial effusion. Procedure Staff Reading Group: [facility] Referring Physician: JOHN PERDOMO Audio Video Mechanic: Jessica Bain [facility] Ordering Physician: EH HIGUERA Cardiac catheterization Cardiovascular Laboratory Report FINAL IMPRESSIONS: Moderately elevated right-sided heart pressures and severely elevated pulmonary capillary wedge pressure consistent with biventricular congestive heart failure Normal transpulmonary gradient along with the elevated wedge consistent with postcapillary pulmonary venous hypertension Giant V waves on wedge pressure tracing suggestive of significant diastolic dysfunction and/or mitral regurgitation Severe systemic hypertension Normal cardiac output/cardiac index RECOMMENDATIONS: Uptitrate IV diuresis, monitor strict inputs and outputs and daily weights Aggressive cardiovascular risk factor modification A complete echocardiogram to evaluate ejection fraction, wall motion abnormalities, and valvular function Optimal medical therapy for heart failure with preserved ejection fraction should include an SGLT2 inhibitor and spironolactone if feasible from a renal standpoint Further recommendations deferred to the inpatient services PROCEDURES: Ultrasound-guided access to the right internal jugular vein, right heart catheterization METHODS: After risks, benefits, and alternatives were explained, written informed consent was obtained. The patient was prepped and draped in usual sterile fashion over the right neck. Using 1% lidocaine solution, local infiltration anesthesia was achieved. Using a modified Seldinger technique, a micropuncture kit, and under ultrasound guidance, access to the right internal jugular vein was obtained. This was exchanged out for a 6 [place] 11 cm sheath. Right heart catheterization was performed using a Dumont catheter via the venous sheath. Pressures were measured in the right atrium, right ventricle, pulmonary artery, and pulmonary capillary wedge positions. Oxygen saturations were obtained and cardiac output/cardiac index was calculated using the modified Macarena principle. The Dumont catheter was removed. After reviewing the hemodynamic data, it was elected to conclude the procedure. All catheters removed. The venous sheath was removed with application of manual pressure to achieve optimal hemostasis. Overall the patient tolerated the procedure well. There were no overt complications. He was to be transferred to the holding area in stable condition. FINDINGS: Hemodynamics: RA 16 RV 56/9, 15 PA 56/27 [42] PCWP 31 TPG 11 AO 161/58 [98] Cardiac output /cardiac index 5.00/3.29 AO sat /PA sat 95%/64% INDICATIONS: Acute on chronic heart failure with preserved ejection fraction Overview: 75-year-old female with acute on chronic HFpEF, CAD s/p CABG 2020, CKD 4, hypertension, and T2DM presenting with progressive dyspnea, orthopnea, peripheral edema, and abdominal distention consistent with decompensated heart failure in the setting of possible cardiorenal syndrome. ASSESSMENT Acute on chronic heart failure with preserved ejection fraction (NYHA III-IV) Echo 10/2024 showed LVEF 55 to 60% with grade 2 diastolic dysfunction and RVSP of 59 mmHg. Echo 05/02/25: LVEF 63%. No regional wall motion abnormality. Mildly reduced RV systolic function. Severely elevated right-sided pressures. Mild MR. Moderate mitral annular calcification. Moderate TR. BNP 1236 with exam findings of volume overload. RHC 05/02/2025: Moderately elevated right-sided pressures and severely elevated PCWP (biventricularcongestive heart failure). Normal transpulmonary gradient. Giant V waves on wedge pressure. PA 42, PCWP 31, CO 5, CI 3.29 CKD stage IV CAD s/p CABG 2020 Essential hypertension Anemia of chronic disease T2DM PLAN RHC 05/02 showing severely elevated right-sided pressures Continue IV Bumex 3 mg twice daily, Strict I's and O's, and daily weights Metolazone 2.5 mg prn, pending further nephrology evaluation and input with regards to volume optimization. 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 [1] Current Facility-Administered Medications: acetaminophen (Tylenol) tablet 650 mg, 650 mg, oral, q6h PRN, Kerline Patel CNP allopurinol (Zyloprim) tablet 100 mg, 100 mg, oral, Nightly, Kerline Patel CNP, 100 mg at 132 amLODIPine (Norvasc) tablet 10 mg, 10 mg, oral, Daily, Kerline Patel CNP, 10 mg at 05/03/25929 aspirin EC tablet 81 mg, 81 mg, oral, q AM, Kerline Patel CNP, 81 mg at 05/03/25929 atorvastatin (Lipitor) tablet 40 mg, 40 mg, oral, Nightly, Kerline Patel CNP, 40 mg at 05/03/252130 bumetanide (Bumex) injection 3 mg, 3 mg, intravenous, BID, William Jaime MD, 3 mg at 05/03/252130 glucose chewable tablet 24 g, 24 g, oral, q15 min PRN OR dextrose 50 % in water (D50W) syringe 25 g, 25 g, intravenous, q15 min PRN, Kerline Patel CNP heparin (porcine) injection 5,000 Units, 5,000 Units, subcutaneous, q12h PONCHO, Kerline Patel CNP, 5,000 Units at 05/03/252130 hydrALAZINE (Apresoline) tablet 50 mg, 50 mg, oral, BID, Kerline Patel CNP, 50 mg at 05/03/252130 insulin lispro (HumaLOG) injection 0-5 Units, 0-5 Units, subcutaneous, TID with meals, 1 Units at 05/03/25 175 AND insulin lispro (HumaLOG) injection 0-4 Units, 0-4 Units, subcutaneous, Nightly,Kerline Patel CNP, 1 Units at 05/02/252214 isosorbide mononitrate ER (Imdur) 24 hr tablet 30 mg, 30 mg, oral, Once Daily, Kerline Patel CNP, 30 mg at 05/03/25 0930 levothyroxine (Synthroid, Levoxyl) tablet 75 mcg, 75 mcg, oral, Daily, Kerline Patel CNP, 75 mcg at 05/04/25 0611 metOLazone (Zaroxolyn) tablet 2.5 mg, 2.5 mg, oral, Once, William Jaime MD metoprolol tartrate (Lopressor) tablet 75 mg, 75 mg, oral, BID, William Jaime MD, 75 mg at 05/03/25 2019 midodrine (Proamatine) tablet 5 mg, 5 mg, oral, PRN, Kerline Patel CNP potassium chloride CR (Klor-Con M20) ER tablet 40 mEq, 40 mEq, oral, Daily, Kerline Patel CNP, 40 mEq at 05/03/25 0930 sennosides-docusate sodium (Andree-Colace) 8.6-50 mg per tablet 1 tablet, 1 tablet, oral, BID PRN, Kerline Patel CNP sodium bicarbonate tablet 650 mg, 650 mg, oral, BID, Johnny Hines MD, 650 mg at 05/03/25 2132 Cosigned by Luis Carrero MD at 05/04/2025 7:17 PM EST Associated attestation - Luis Carrero MD - 05/04/2025 7:17 PM EST By using the attestations below, the signing clinician agrees that I have read and verify that thedocumentation has been personally reviewed by me and ensure that the documentation accurately reflects the encounter. GC: I personally saw this patient on the day of the encounter with Cindy Duenas and Dr. Lusi, performed the caceres portion(s) of the service and participated in the management and confirm the resident's documentation. Please note there may be an additional personal documentation from me. * Henrry Rivera MD - 05/03/2025 11:23 AM EDT Images from the original note were not included. [employer] Daily Progress Note - 05/03/2025 11:32 AM; Room: [address] [place] [address] Admission: 05/01/2025 5:55 PM; Length of stay: 2 days Code Status: Full Code Discharge Destination: TBD Discharge planning: TBD Overview Patient is seen for evaluation and management of heart failure exacerbation. Claudia Polo is an 75 y.o. female who came from [facility] with prior history of hypertension and diabetes, and chronic kidney disease stage 4. She was previously evaluated in cardiology clinic because of symptoms of angina. Her medications were optimized. . Cardiac catheterization in July 2020 showed severe three-vessel coronary artery disease. She underwent CABG on 07/13/2020. She developed postoperative atrial fibrillation that converted medically. Due to her chronic kidney disease she has a lot of issues with water retention. Currently she is maintained on bumetanide 4 mg twice daily and metolazone 2.5 mg once weekly. Most recently she has been having orthostatic hypotensionand was recommended to take midodrine 5 mg 3 times daily. Today she was seen in cardiology clinic for follow-up. She has been having significant shortness of breath on exertion, volume overload specially in her belly and in her legs. No chest pain. Her blood pressure is uncontrolled. NYHA class III. She has on and off coughing. No fever. She was advised to come to [facility] for CHF exacerbation. Subjective The patient was seen and examined at bedside this morning . No acute overnight events. The patient stated her shortness of breath is much better since admission and she is able to talk in full sentences. The patient denies fever, chills, nausea, vomiting but does have dry cough, reported getting better compared to the past few days. The patient is currently on 1 L of nasal oxygen and saturating at 97%. She is afebrile and hemodynamically stable. The patient has no shortness of breath at rest orwhen she is getting up from the bed to use the bathroom. Physical Exam Visit Vitals BP 143/70 (BP Location: Right arm, Patient Position: Lying) Pulse 72 Temp 36.4 ??C (97.5 ??F) (Temporal) Resp 16 Intake/Output Summary (Last 24 hours) at 05/03/2025 1132 Last data filed at 05/03/2025 0900 Gross per 24 hour Intake 600 ml Output 410 ml Net 190 ml Physical Exam Eyes: Extraocular Movements: Extraocular movements intact. Conjunctiva/sclera: Conjunctivae normal. Cardiovascular: Rate and Rhythm: Normal rate and regular rhythm. Pulses: Normal pulses. Pulmonary: Effort: Pulmonary effort is normal. Breath sounds: No wheezing. Comments: Requiring 2 L per nasal cannula Abdominal: General: Bowel sounds are normal. There is distension. Tenderness: There is no abdominal tenderness. There is no guarding. Musculoskeletal: Right lower leg: Edema present. Left lower leg: Edema present. Skin: General: Skin is warm and dry. Neurological: Mental Status: She is oriented to person, place, and time. Mental status is at baseline. Estimated body mass index is 28.42 kg/m?? as calculated from the following: Height as of this encounter: 1.422 m (4' 8 ). Weight as of this encounter: 57.5 kg (126 lb 12.2 oz). Active Inpatient Problems Principal Problem: Acute on chronic heart failure with preserved ejection fraction (HFpEF) ([facility]) Active Problems: Hypertensive disorder Stage 4 chronic kidney disease ([facility]) Type 2 diabetes mellitus ([facility]) Assessment and Plan Acute on chronic heart failure with preserved ejection fraction -Patient presented for worsening MCALLISTER, weight gain, lower extremity edema, and abdominal distention -Chest x-ray showing mild pulmonary edema -BNP 1236 -Patient volume overloaded on physical examination - Echo on 05/02/25 calculated EF 63%, mild MR, moderate tricuspid regurgitation - Cardiology on board, appreciate recs - Right heart cath 05/02 mildly elevated right-sided heart pressures, elevated PCWP, consistent with biventricular heart failure - Consider adding Aldactone if feasible as GFR is low - Continue Bumex 3 mg IV BID, continue for today , plan to do home oxygen evaluation ,if pt does not desat ,will discharge her on oral Bumex -Continue Lopressor - Strict I&Os, daily weights I/O: -735 ml CAD status post CABG 2020 - Three-vessel coronary artery disease visualized on cardiac cath 07/2020 - Resume aspirin and atorvastatin CKD stage 4 - Chronically retaining fluids, family requesting nephrology consult - creatinine-2.85->2.76, BUN-61, GFR-17.5 - Continue to monitor kidney function - Avoid nephrotoxic medications Nephrology on consult recommended Based on oxygen evaluation if patient has saturating well,can be discharged from their standpoint with Bumex 3 BID at home and 2.5 Mg metolazone PRN for SOB or weight gain > 2 lbs. If patient desat, keep her, give extra dose of Bumex this afternoon (for total of 3 doses today) and reassess tomorrow. Essential hypertension - Continue Norvasc 10 mg daily - Continue hydralazine 50 mg twice daily Type 2 diabetes mellitus - low intensity sliding scale Hypothyroidism - TSH 4.54 on 05/02 - Continue levothyroxine 75 mcg daily Nutrition Screen VTE Prophylaxis: Heparin subcutaneous Scheduled Meds allopurinol, 100 mg, oral, Nightly amLODIPine, 10 mg, oral, Daily aspirin, 81 mg, oral, q AM atorvastatin, 40 mg, oral, Nightly bumetanide, 3 mg, intravenous, BID heparin (porcine), 5,000 Units, subcutaneous, q12h PONCHO hydrALAZINE, 50 mg, oral, BID insulin lispro, 0-5 Units, subcutaneous, TID with meals And insulin lispro, 0-4 Units, subcutaneous, Nightly isosorbide mononitrate ER, 30 mg, oral, Once Daily levothyroxine, 75 mcg, oral, Daily metoprolol tartrate, 75 mg, oral, BID potassium chloride CR, 40 mEq, oral, Daily Pertinent Investigations Hematology: Results from last 7 days Lab Units 05/03/25 0715 05/02/25 0546 WBC AUTO 10*3/uL 9.33 10.61* HEMOGLOBIN g/dL 8.8* 9.0* HEMATOCRIT % 26.5* 26.9* MCV fL 89.5 88.5 PLATELETS AUTO 10*3/uL 180 186 Chemistry: Results from last 7 days Lab Units 05/03/25 0715 05/02/25 0546 05/02/25 0024 SODIUM mmol/L 138 138 137 POTASSIUM mmol/L 4.0 3.9 3.9 CHLORIDE mmol/L 108* 108* 106 CO2 mmol/L 20* 21 21 BUN mg/dL 61* 60* 58* CREATININE mg/dL 2.76* 2.77* 2.85* GLUCOSE mg/dL 113* 147* 146* MAGNESIUM mg/dL -- -- 2.1 CALCIUM mg/dL 8.6 8.6 8.5* No lab exists for component: AFIO2 , APHT , APCOT , APOT , ATCO2 , CK , ALB , IBILI Results from last 7 days Lab Units 05/03/25 0759 05/02/25200905/02/25 1737 05/02/25 1218 POCT GLUCOSE mg/dL 126* 212* 199* 158* Historical Values: (Includes values prior to this admission) Lab Results Component Value Date TSH 4.54 05/02/2025 Lab Results Component Value Date [id number] 424 05/02/2025 IRON 53 05/02/2025 TIBC 235 (L) 05/02/2025 Imaging ECG 12 lead Normal sinus rhythm Abnormal QRS-T angle, consider primary T wave abnormality Abnormal ECG When compared with ECG of 14-JUL-2020 06:44, ST no longer elevated in Lateral Nonspecific T wave abnormality now evident in Lateral Confirmed by Chela CARRERO, LUIS Salvador ([id number]) on 05/02/2025 4:37:20 PM XR chest 1 view Narrative: HISTORY: Shortness of breath COMPARISON: 07/27/2020 FINDINGS: Portable AP upright view of the chest was performed. 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 Heart size is mildly enlarged but stable. Increased prominence of interstitial markings suggestive of pulmonary edema. Atelectasis or scarring in the left midlung. No significant pleural effusion or pneumothorax. Surgical clips overlie the right upper quadrant. Impression: * Mild pulmonary edema. Electronically signed: Julio Andrew. Complete Echo (TTE) w/wo Imaging Agent, Strain, 3D, Bubble Study 1 1 [facility] Heart Station [address] [place] [address] [phone] (fax) Echocardiogram-[facility] Name: CLAUDIA POLO Study Date: 05/02/2025 07:57 AM B/P: 164 mmHg/64 mmHg HR: 72 bpm Date of : 1950 Location: [facility] Height: 56 in. Age: 75 year(s) Patient Room: 3186 Weight: 138 lb. Gender: Female Patient Status: InPt BSA: 1.52 m2 Indication: CABG, Congestive Heart Failure, Hypertension Examination: Echocardiogram (Complete) Image Quality: Good Patient Consent: Procedure explained to patient Conclusions Left Ventricle: The left ventricle is normal size. Global left ventricular systolic function is normal. The calculated Biplane EF is 63 %. Left ventricular wall thickness is normal. No regional wall motion abnormality. Unable to assess diastolic dysfunction. Right Ventricle: The right ventricle is normal in size. Mildly reduced right ventricular systolic function. Doppler studies suggest severely elevated right sided pressures. Left Atrium: The left atrium is normal in size. Mitral Valve: Mild mitral regurgitation. Mild mitral valve stenosis. There is moderate mitral annular calcification. Tricuspid Valve: Moderate tricuspid regurgitation. Measurements Left Ventricle Label Value Normal Value LVOTd 1.7 cm (18cm - 20cm) LVOT VTI 30.7 cm (18cm - 22cm) LVOT PGmax 6 mmHg LVDd, 2D 4.71 cm (3.9cm - 5.3cm) LVDs, 2D 3.08 cm (2.1cm - 4cm) IVSd, 2D 0.86 cm (0.6cm - 1.1cm) LVPWd, 2D 1.11 cm (0.6cm - 0.9cm) LVEF, BP 63 % (55% - 65%) LV Mass, 2D ASE 161.67 g LV Mass Index, 2D ASE 106.4 g/m?? (44g/m?? - 88.4g/m??) RWT, MM 0.47 (0 - 0.42) LVSVI, 2D 43.4 ml/m2 LVOT PGmean 3 mmHg LVSV_LVOT 70 ml Right Ventricle Label Value Normal Value RVDd, 2D 3.66 cm (1.9cm - 3.8cm) TAPSE 1.5 cm Left Atrium Label Value Normal Value LA Volume, BP 51 ml (22ml - 52ml) LADs, 2D 3.3 cm (2.7cm - 3.8cm) LAESV index, BP 33.6 ml/m?? Right Atrium Label Value Normal Value RA Area 15.7 cm?? Aortic Valve Label Value Normal Value AV DVI 0.66 AV VTI 44.8 cm Mitral Valve Label Value Normal Value MV E Vmax 1.87 m/s MV A Vmax 1.34 m/s MV E/A 1.4 MV E/E' lateral 26.9 MV E' lateral 0.07 m/s Tricuspid Valve Label Value Normal Value RA Pressure 8 mmHg RVSP 72 mmHg Aorta Label Value Normal Value AoRoot, 2D 2.7 cm (1.4cm - 3.8cm) Great Vessels Label Value Normal Value IVC 2 cm (1.2cm - 2.3cm) Valvular Assessment LVOT 0.7 - 1.1 m/sec Aortic Valve 1.0 - 1.7 m/sec Mitral Valve 0.6 - 1.3 m/sec Tricuspid Valve 0.3 - 0.7 m/sec Pulmonic Valve 0.6 - 0.9 m/sec Regurgitation No Mild Moderate No Stenosis No Mild No No Max Velocity 1.23 m/sec 1.87 m/s 1.87 m/sec Max Gradient 14.00 mmHg 13.00 mmHg Mean Gradient 8.00 mmHg 6.00 mmHg Valve Area 1.5 cm?? 2.3 cm?? Findings Left Ventricle: The left ventricle is normal size. Global left ventricular systolic function is normal. The calculated Biplane EF is 63 %. Left ventricular wall thickness is normal. No regional wall motion abnormality. Unable to assess diastolic dysfunction. Right Ventricle: The right ventricle is normal in size. Mildly reduced right ventricular systolic function. Doppler studies suggest severely elevated right sided pressures. Left Atrium: The left atrium is normal in size. Right Atrium: The right atrium is normal in size. Mitral Valve: Mild mitral regurgitation. Mild mitral valve stenosis. There is moderate mitral annular calcification. Mitral Valve Measurements MV Vmax: 1.80 m/s. MV Vmean: 1.19 m/s. MV PGmax: 13.00 mmHg. MV PGmean: 6.00 mmHg. Aortic Valve: The aortic valve is normal. No aortic valve regurgitation. No aortic valve stenosis. The aortic valve is trileaflet. Tricuspid Valve: The tricuspid valve leaflets are thickened. Moderate tricuspid regurgitation. No tricuspid valve stenosis. Pulmonic Valve: Normal pulmonary valve. No pulmonary regurgitation. No pulmonic valve stenosis. Aorta: The aortic root exhibits normal size. Great Vessels: IVC: The IVC is normal in size. Respiratory inspiration less than 50%. Pericardium: No pericardial effusion. Procedure Staff Reading Group: [facility] Referring Physician: JOHN PERDOMO Audio Video Mechanic: Jessica Bain [facility] Ordering Physician: EH HIGUERA Cardiac catheterization Cardiovascular Laboratory Report FINAL IMPRESSIONS: Moderately elevated right-sided heart pressures and severely elevated pulmonary capillary wedge pressure consistent with biventricular congestive heart failure Normal transpulmonary gradient along with the elevated wedge consistent with postcapillary pulmonary venous hypertension Giant V waves on wedge pressure tracing suggestive of significant diastolic dysfunction and/or mitral regurgitation Severe systemic hypertension Normal cardiac output/cardiac index RECOMMENDATIONS: Uptitrate IV diuresis, monitor strict inputs and outputs and daily weights Aggressive cardiovascular risk factor modification A complete echocardiogram to evaluate ejection fraction, wall motion abnormalities, and valvular function Optimal medical therapy for heart failure with preserved ejection fraction should include an SGLT2 inhibitor and spironolactone if feasible from a renal standpoint Further recommendations deferred to the inpatient services PROCEDURES: Ultrasound-guided access to the right internal jugular vein, right heart catheterization METHODS: After risks, benefits, and alternatives were explained, written informed consent was obtained. The patient was prepped and draped in usual sterile fashion over the right neck. Using 1% lidocaine solution, local infiltration anesthesia was achieved. Using a modified Seldinger technique, a micropuncture kit, and under ultrasound guidance, access to the right internal jugular vein was obtained. This was exchanged out for a 6 [place] 11 cm sheath. Right heart catheterization was performed using a Dumont catheter via the venous sheath. Pressures were measured in the right atrium, right ventricle, pulmonary artery, and pulmonary capillary wedge positions. Oxygen saturations were obtained and cardiac output/cardiac index was calculated using the modified Macarena principle. The Dumont catheter was removed. After reviewing the hemodynamic data, it was elected to conclude the procedure. All catheters removed. The venous sheath was removed with application of manual pressure to achieve optimal hemostasis. Overall the patient tolerated the procedure well. There were no overt complications. He was to be transferred to the holding area in stable condition. FINDINGS: Hemodynamics: RA 16 RV 56/9, 15 PA 56/27 [42] PCWP 31 TPG 11 AO 161/58 [98] Cardiac output /cardiac index 5.00/3.29 AO sat /PA sat 95%/64% INDICATIONS: Acute on chronic heart failure with preserved ejection fraction Discharge Planning TBD Signed Henrry Rivera MD Internal Medicine Resident, PGY1 [facility] 05/03/2025 11:32 AM Cosigned by Eh Higuera MD at 05/04/2025 11:46 AM EST Associated attestation - Eh Higuera MD - 05/04/2025 11:46 AM EST By using the attestations below, the signing clinician agrees that I have read and verify that thedocumentation has been personally reviewed by me and ensure that the documentation accurately reflects the encounter. GC: I personally saw this patient on the day of the encounter, performed the caceres portion(s) of the service and participated in the management and confirm the resident's documentation. Please note there may be an additional personal documentation from me. Additional Comments: Routine dry weight. Creatinine remained stable. Discharge planning for 05/04. We do have final recommendations from nephrology. * Seven Tapia MD - 05/03/2025 8:35 AM EDT Images from the original note were not included. Cardiology Progress Note Subjective 05/03: Patient seen and examined at bedside this morning. Afebrile and hemodynamically stable with noted elevations in BP, satting well on 1 L O2 via NC. 725 cc UOP over the past 24 hours. Creatinine 2.76 (2.77), and hemoglobin 8.8 (9). No acute events overnight. Denies chest pain or dyspnea. Discomfort at [facility] site with bruising on right neck. Feels a lot better. Awaiting nephro input. Subjective: Claudia Polo is a 75 y.o. female with a past medical history notable for hypertension, HFpEF, CAD s/p CABG 2020, hyperlipidemia, CKD 4, and diabetes who presents from [facility] cardiology clinic due to worsening dyspnea on exertion. She was seen in the cardiology clinic on 05/01 and was noted to have significant worsening dyspnea on exertion with desaturations on minimal exertion. She also was noted to have orthopnea, bilateral lower extremity edema and abdominal bloating. She also complains of chest pain relieved with sublingual nitroglycerin. 1 week prior she was noted to have signs of CHF exacerbation on CXR with reported dyspnea on exertion for which Bumex was increased to 2 mg twice daily. Patient continues to have worsening dyspnea with signs of fluid overload on exam (elevated JVP, bilateral lower extremity edema, etc...). Given worsening renal function and evidence of heart failure exacerbation, patient was transferred to our hospital for further evaluation and cardiology was consulted. Creatinine 2.77 (baseline around 2), BNP 1236, WBCs 10.6, hemoglobin 9 (8.5), labs otherwise unremarkable. Cardiac workup: Cardiac catheterization 07/2020 showed severe three-vessel coronary artery disease, she underwent CABG on 07/13/2020 and developed postoperative A-fib that converted medically. Echocardiogram 10/2024: LVEF 55 to 60%. Normal RV size and function. Mild biatrial dilation. Grade 2diastolic dysfunction with elevated filling pressures. Mild TR. Moderately elevated right-sided pressures with RVSP of 59 mmHg. Cardiac medications: Amlodipine 10 mg, aspirin 81 mg, atorvastatin 40 mg, Bumex 2 mg twice daily, hydralazine 50 mg 4 times daily, Imdur 30 mg, Lopressor 75 mg twice daily, midodrine 5 mg 3 times daily as needed, nitroglycerin as needed. Objective Current Medications[1] Objective: Patient Vitals for the past 24 hrs: BP Temp Temp src Pulse Resp SpO2 Weight 05/03/25 0815 143/70 36.4 ??C (97.5 ??F) Temporal 72 16 97 % -- 05/03/25 0513 -- -- -- -- -- -- 57.5 kg (126 lb 12.2 oz) 05/03/25 0000 153/58 36.1 ??C (97 ??F) Temporal 69 17 97 % -- 05/02/25 2214 160/59 -- -- -- -- -- -- 05/02/252009 148/53 36.1 ??C (97 ??F) Temporal 80 23 97 % -- 05/02/25 1704 164/67 -- -- 75 19 97 % -- 05/02/25 1600 166/63 -- -- 74 17 97 % -- 05/02/25 1531 -- -- -- -- -- -- 57.5 kg (126 lb 11.2 oz) 05/02/25 1500 (!) 159/42 -- -- 75 20 97 % -- 05/02/25 1400 145/67 -- -- 76 24 97 % -- 05/02/25 1345 -- -- -- 76 20 96 % -- 05/02/25 1315 (!) 113/94 -- -- 73 15 98 % -- 05/02/25 1300 171/89 -- -- 73 16 97 % -- 05/02/25 1245 156/57 36.2 ??C (97.2 ??F) -- 76 21 96 % -- 05/02/25 1233 157/61 -- -- 77 26 -- -- 05/02/25 1216 179/67 -- -- 75 16 -- -- 05/02/25 1213 179/80 -- -- -- -- -- -- Physical Examination: Physical Exam Vitals reviewed. Cardiovascular: Rate and Rhythm: Normal rate and regular rhythm. Pulmonary: Effort: Pulmonary effort is normal. Musculoskeletal: Cervical back: Normal range of motion. Skin: General: Skin is warm. Capillary Refill: Capillary refill takes less than 2 seconds. Comments: Bruise on right neck Neurological: General: No focal deficit present. Mental Status: She is alert. Relevant Lab Results Encounter Date: 05/01/25 ECG 12 lead Result Value Ventricular Rate 74 Atrial Rate 74 VT Interval 168 QRS DURATION 68 QT Interval 410 QTC CALCULATION(BAZETT) 455 P [place] 64 R-[place] 15 T Wave [place] 103 Impression Normal sinus rhythm Abnormal QRS-T angle, consider primary T wave abnormality Abnormal ECG When compared with ECG of 14-JUL-2020 06:44, ST no longer elevated in Lateral Nonspecific T wave abnormality now evident in Lateral Confirmed by Chela CARRERO, LUIS Salvador (57) on 05/02/2025 4:37:20 PM No results found for: CKTOTAL , CKMB , CKMBINDEX , TROPONINI Complete Echo (TTE) w/wo Imaging Agent, Strain, 3D, Bubble Study Result Date: 05/02/2025 1 1 [facility] Heart Station [address] [facility] [address] [place], [place] [phone] (fax) Echocardiogram-[facility] Name: CLAUDIA POLO Study Date: 05/02/2025 07:57 AM B/P: 164 mmHg/64 mmHg HR: 72 bpm Date of : 1950 Location: [facility] Height: 56 in. Age: 75 year(s) Patient Room: 3186 Weight: 138 lb. Gender: Female Patient Status:InPt BSA: 1.52 m2 Indication: CABG, Congestive Heart Failure, Hypertension Examination: Echocardiogram (Complete) Image Quality: Good Patient Consent: Procedure explained to patient Conclusions Left Ventricle: The left ventricle is normal size. Global left ventricular systolic function is normal. The calculated Biplane EF is 63 %. Left ventricular wall thickness is normal. No regional wall motionabnormality. Unable to assess diastolic dysfunction. Right Ventricle: The right ventricle is normalin size. Mildly reduced right ventricular systolic function. Doppler studies suggest severely elevated right sided pressures. Left Atrium: The left atrium is normal in size. Mitral Valve: Mild mitralregurgitation. Mild mitral valve stenosis. There is moderate mitral annular calcification. Tricuspid Valve: Moderate tricuspid regurgitation. Measurements Left Ventricle Label Value Normal Value LVOTd 1.7 cm (18cm - 20cm) LVOT VTI 30.7 cm (18cm - 22cm) LVOT PGmax 6 mmHg LVDd, 2D 4.71 cm (3.9cm - 5.3 cm) LVDs, 2D 3.08 cm (2.1cm - 4cm) IVSd, 2D 0.86 cm (0.6cm - 1.1cm) LVPWd, 2D 1.11 cm (0.6cm - 0.9cm) LVEF, BP 63 % (55% - 65%) LV Mass, 2D ASE 161.67 g LV Mass Index, 2D ASE 106.4 g/m?? (44g/m?? - 88.4g/m??) RWT, MM 0.47 (0 - 0.42) LVSVI, 2D 43.4 ml/m2 LVOT PGmean 3 mmHg LVSV_LVOT 70 ml Right Ventricle Label Value Normal Value RVDd, 2D 3.66 cm (1.9cm - 3.8cm) TAPSE 1.5 cm Left Atrium Label ValueNormal Value LA Volume, BP 51 ml (22ml - 52ml) LADs, 2D 3.3 cm (2.7cm - 3.8cm) LAESV index, BP 33.6ml/m?? Right Atrium Label Value Normal Value RA Area 15.7 cm?? Aortic Valve Label Value Normal Value AV DVI 0.66 AV VTI 44.8 cm Mitral Valve Label Value Normal Value MV E Vmax 1.87 m/s MV A Vmax 1.34m/s MV E/A 1.4 MV E/E' lateral 26.9 MV E' lateral 0.07 m/s Tricuspid Valve Label Value Normal ValueRA Pressure 8 mmHg RVSP 72 mmHg Aorta Label Value Normal Value AoRoot, 2D 2.7 cm (1.4cm - 3.8cm) Great Vessels Label Value Normal Value IVC 2 cm (1.2cm - 2.3cm) Valvular Assessment LVOT 0.7 - 1.1 m/sec Aortic Valve 1.0 - 1.7 m/sec Mitral Valve 0.6 - 1.3 m/sec Tricuspid Valve 0.3 - 0.7 m/sec Pulmonic Valve 0.6 - 0.9 m/sec Regurgitation No Mild Moderate No Stenosis No Mild No No Max Velocity 1.23 m/sec 1.87 m/s 1.87 m/sec Max Gradient 14.00 mmHg 13.00 mmHg Mean Gradient 8.00 mmHg 6.00 mmHg Valve Area 1.5 cm?? 2.3 cm?? Findings Left Ventricle: The left ventricle is normal size. Global left ventricular systolic function is normal. The calculated Biplane EF is 63 %. Left ventricular wall thickness is normal. No regional wall motion abnormality. Unable to assess diastolic dysfunction. Right Ventricle: The right ventricle is normal in size. Mildly reduced right ventricular systolic function. Doppler studies suggest severely elevated right sided pressures. Left Atrium: The left atrium is normal in size. Right Atrium: The right atrium is normal in size. Mitral Valve: Mild mitral regurgitation. Mild mitral valve stenosis. There is moderate mitral annular calcification. Mitral Valve Measurements MV Vmax: 1.80 m/s. MV Vmean: 1.19 m/s. MV PGmax: 13.00 mmHg. MV PGmean: 6.00 mmHg. Aortic Valve: The aortic valve is normal. No aortic valve regurgitation. No aortic valve stenosis. The aortic valve is trileaflet. Tricuspid Valve: The tricuspid valve leaflets are thickened. Moderate tricuspid regurgitation. No tricuspid valve stenosis. Pulmonic Valve: Normal pulmonary valve. No pulmonary regurgitation. No pulmonic valve stenosis. Aorta: The aortic root exhibits normal size. Great Vessels: IVC: The IVC is normal in size. Respiratory inspiration less than 50%. Pericardium: No pericardial effusion. Procedure Staff Reading Group: [facility] Referring Physician: JOHN PERDOMO Audio Video Mechanic: HALLE Jacob Ordering Physician: EH HIGUERA No nuclear medicine results found for the past 12 months Relevant Imaging Results ECG 12 lead Normal sinus rhythm Abnormal QRS-T angle, consider primary T wave abnormality Abnormal ECG When compared with ECG of 14-JUL-2020 06:44, ST no longer elevated in Lateral Nonspecific T wave abnormality now evident in Lateral Confirmed by Chela CARRERO, LUIS Salvador ([id number]) on 05/02/2025 4:37:20 PM XR chest 1 view Narrative: HISTORY: Shortness of breath COMPARISON: 07/27/2020 FINDINGS: Portable AP upright view of the chest was performed. 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 Heart size is mildly enlarged but stable. Increased prominence of interstitial markings suggestive of pulmonary edema. Atelectasis or scarring in the left midlung. No significant pleural effusion or pneumothorax. Surgical clips overlie the right upper quadrant. Impression: * Mild pulmonary edema. Electronically signed: Julio Andrew. Complete Echo (TTE) w/wo Imaging Agent, Strain, 3D, Bubble Study 1 1 [facility] Heart Station [address] [id number] [phone] (fax) Echocardiogram-[facility] Name: CLAUDIA POLO Study Date: 05/02/2025 07:57 AM B/P: 164 mmHg/64 mmHg HR: 72 bpm Date of : 1950 Location: [facility] Height: 56 in. Age: 75 year(s) Patient Room: 3186 Weight: 138 lb. Gender: Female Patient Status: InPt BSA: 1.52 m2 Indication: CABG, Congestive Heart Failure, Hypertension Examination: Echocardiogram (Complete) Image Quality: Good Patient Consent: Procedure explained to patient Conclusions Left Ventricle: The left ventricle is normal size. Global left ventricular systolic function is normal. The calculated Biplane EF is 63 %. Left ventricular wall thickness is normal. No regional wall motion abnormality. Unable to assess diastolic dysfunction. Right Ventricle: The right ventricle is normal in size. Mildly reduced right ventricular systolic function. Doppler studies suggest severely elevated right sided pressures. Left Atrium: The left atrium is normal in size. Mitral Valve: Mild mitral regurgitation. Mild mitral valve stenosis. There is moderate mitral annular calcification. Tricuspid Valve: Moderate tricuspid regurgitation. Measurements Left Ventricle Label Value Normal Value LVOTd 1.7 cm (18cm - 20cm) LVOT VTI 30.7 cm (18cm - 22cm) LVOT PGmax 6 mmHg LVDd, 2D 4.71 cm (3.9cm - 5.3cm) LVDs, 2D 3.08 cm (2.1cm - 4cm) IVSd, 2D 0.86 cm (0.6cm - 1.1cm) LVPWd, 2D 1.11 cm (0.6cm - 0.9cm) LVEF, BP 63 % (55% - 65%) LV Mass, 2D ASE 161.67 g LV Mass Index, 2D ASE 106.4 g/m?? (44g/m?? - 88.4g/m??) RWT, MM 0.47 (0 - 0.42) LVSVI, 2D 43.4 ml/m2 LVOT PGmean 3 mmHg LVSV_LVOT 70 ml Right Ventricle Label Value Normal Value RVDd, 2D 3.66 cm (1.9cm - 3.8cm) TAPSE 1.5 cm Left Atrium Label Value Normal Value LA Volume, BP 51 ml (22ml - 52ml) LADs, 2D 3.3 cm (2.7cm - 3.8cm) LAESV index, BP 33.6 ml/m?? Right Atrium Label Value Normal Value RA Area 15.7 cm?? Aortic Valve Label Value Normal Value AV DVI 0.66 AV VTI 44.8 cm Mitral Valve Label Value Normal Value MV E Vmax 1.87 m/s MV A Vmax 1.34 m/s MV E/A 1.4 MV E/E' lateral 26.9 MV E' lateral 0.07 m/s Tricuspid Valve Label Value Normal Value RA Pressure 8 mmHg RVSP 72 mmHg Aorta Label Value Normal Value AoRoot, 2D 2.7 cm (1.4cm - 3.8cm) Great Vessels Label Value Normal Value IVC 2 cm (1.2cm - 2.3cm) Valvular Assessment LVOT 0.7 - 1.1 m/sec Aortic Valve 1.0 - 1.7 m/sec Mitral Valve 0.6 - 1.3 m/sec Tricuspid Valve 0.3 - 0.7 m/sec Pulmonic Valve 0.6 - 0.9 m/sec Regurgitation No Mild Moderate No Stenosis No Mild No No Max Velocity 1.23 m/sec 1.87 m/s 1.87 m/sec Max Gradient 14.00 mmHg 13.00 mmHg Mean Gradient 8.00 mmHg 6.00 mmHg Valve Area 1.5 cm?? 2.3 cm?? Findings Left Ventricle: The left ventricle is normal size. Global left ventricular systolic function is normal. The calculated Biplane EF is 63 %. Left ventricular wall thickness is normal. No regional wall motion abnormality. Unable to assess diastolic dysfunction. Right Ventricle: The right ventricle is normal in size. Mildly reduced right ventricular systolic function. Doppler studies suggest severely elevated right sided pressures. Left Atrium: The left atrium is normal in size. Right Atrium: The right atrium is normal in size. Mitral Valve: Mild mitral regurgitation. Mild mitral valve stenosis. There is moderate mitral annular calcification. Mitral Valve Measurements MV Vmax: 1.80 m/s. MV Vmean: 1.19 m/s. MV PGmax: 13.00 mmHg. MV PGmean: 6.00 mmHg. Aortic Valve: The aortic valve is normal. No aortic valve regurgitation. No aortic valve stenosis. The aortic valve is trileaflet. Tricuspid Valve: The tricuspid valve leaflets are thickened. Moderate tricuspid regurgitation. No tricuspid valve stenosis. Pulmonic Valve: Normal pulmonary valve. No pulmonary regurgitation. No pulmonic valve stenosis. Aorta: The aortic root exhibits normal size. Great Vessels: IVC: The IVC is normal in size. Respiratory inspiration less than 50%. Pericardium: No pericardial effusion. Procedure Staff Reading Group: [facility] Referring Physician: JOHN PERDOMO Audio Video Mechanic: HALLE Jacob Ordering Physician: EH HIGUERA Cardiac catheterization Cardiovascular Laboratory Report FINAL IMPRESSIONS: Moderately elevated right-sided heart pressures and severely elevated pulmonary capillary wedge pressure consistent with biventricular congestive heart failure Normal transpulmonary gradient along with the elevated wedge consistent with postcapillary pulmonary venous hypertension Giant V waves on wedge pressure tracing suggestive of significant diastolic dysfunction and/or mitral regurgitation Severe systemic hypertension Normal cardiac output/cardiac index RECOMMENDATIONS: Uptitrate IV diuresis, monitor strict inputs and outputs and daily weights Aggressive cardiovascular risk factor modification A complete echocardiogram to evaluate ejection fraction, wall motion abnormalities, and valvular function Optimal medical therapy for heart failure with preserved ejection fraction should include an SGLT2 inhibitor and spironolactone if feasible from a renal standpoint Further recommendations deferred to the inpatient services PROCEDURES: Ultrasound-guided access to the right internal jugular vein, right heart catheterization METHODS: After risks, benefits, and alternatives were explained, written informed consent was obtained. The patient was prepped and draped in usual sterile fashion over the right neck. Using 1% lidocaine solution, local infiltration anesthesia was achieved. Using a modified Seldinger technique, a micropuncture kit, and under ultrasound guidance, access to the right internal jugular vein was obtained. This was exchanged out for a 6 [place] 11 cm sheath. Right heart catheterization was performed using a Dumont catheter via the venous sheath. Pressures were measured in the right atrium, right ventricle, pulmonary artery, and pulmonary capillary wedge positions. Oxygen saturations were obtained and cardiac output/cardiac index was calculated using the modified Macarena principle. The Dumont catheter was removed. After reviewing the hemodynamic data, it was elected to conclude the procedure. All catheters removed. The venous sheath was removed with application of manual pressure to achieve optimal hemostasis. Overall the patient tolerated the procedure well. There were no overt complications. He was to be transferred to the holding area in stable condition. FINDINGS: Hemodynamics: RA 16 RV 56/9, 15 PA 56/27 [42] PCWP 31 TPG 11 AO 161/58 [98] Cardiac output /cardiac index 5.00/3.29 AO sat /PA sat 95%/64% INDICATIONS: Acute on chronic heart failure with preserved ejection fraction Overview: 75-year-old female with acute on chronic HFpEF, CAD s/p CABG 2020, CKD 4, hypertension, and T2DM presenting with progressive dyspnea, orthopnea, peripheral edema, and abdominal distention consistent with decompensated heart failure in the setting of possible cardiorenal syndrome. ASSESSMENT Acute on chronic heart failure with preserved ejection fraction (NYHA III-IV) Echo 10/2024 showed LVEF 55 to 60% with grade 2 diastolic dysfunction and RVSP of 59 mmHg. Echo 05/02/25: LVEF 63%. No regional wall motion abnormality. Mildly reduced RV systolic function.Severely elevated right-sided pressures. Mild MR. Moderate mitral annular calcification. Moderate TR. BNP 1236 with exam findings of volume overload. RHC 05/02/2025: Moderately elevated right-sided pressures and severely elevated PCWP (biventricularcongestive heart failure). Normal transpulmonary gradient. Giant V waves on wedge pressure. PA 42, PCWP 31, CO 5, CI 3.29 CKD stage IV CAD s/p CABG 2020 Essential hypertension Anemia of chronic disease T2DM PLAN RHC 05/02 showing severely elevated right-sided pressures Continue IV Bumex 3 mg twice daily, Strict I's and O's, and daily weights Metolazone 2.5 mg prn, pending further nephrology evaluation and input with regards to volume optimization. 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 Every effort was made to ensure accuracy. However, inadvertent computerized medical detailist errors may be present. Seven Tapia MD PGY-2 Internal Medicine Cardiology Consult Service [facility] [1] Current Facility-Administered Medications: acetaminophen (Tylenol) tablet 650 mg, 650 mg, oral, q6h PRN, Kerline Patel CNP allopurinol (Zyloprim) tablet 100 mg, 100 mg, oral, Nightly, Kerline Patel CNP, 100 mg at amLODIPine (Norvasc) tablet 10 mg, 10 mg, oral, Daily, Kerline Patel CNP, 10 mg at 05/03/25 0930 aspirin EC tablet 81 mg, 81 mg, oral, q AM, Kerline Patel CNP, 81 mg at 05/03/25929 atorvastatin (Lipitor) tablet 40 mg, 40 mg, oral, Nightly, Kerline Patel CNP, 40 mg at 05/02/252214 bumetanide (Bumex) injection 3 mg, 3 mg, intravenous, BID, William Jaime MD, 3 mg at 05/03/25929 glucose chewable tablet 24 g, 24 g, oral, q15 min PRN OR dextrose 50 % in water (D50W) syringe 25 g, 25 g, intravenous, q15 min PRN, Kerline Patel CNP heparin (porcine) injection 5,000 Units, 5,000 Units, subcutaneous, q12h PONCHO, Kerline Patel CNP, 5,000 Units at 05/03/25929 hydrALAZINE (Apresoline) tablet 50 mg, 50 mg, oral, BID, Kerline Patel CNP, 50 mg at 05/03/25929 insulin lispro (HumaLOG) injection 0-5 Units, 0-5 Units, subcutaneous, TID with meals, 1 Units at 05/02/25 1742 AND insulin lispro (HumaLOG) injection 0-4 Units, 0-4 Units, subcutaneous, Nightly,Kerline Patel CNP, 1 Units at 05/02/25 2215 isosorbide mononitrate ER (Imdur) 24 hr tablet 30 mg, 30 mg, oral, Once Daily, Kerline Patel CNP, 30 mg at 05/03/25929 levothyroxine (Synthroid, Levoxyl) tablet 75 mcg, 75 mcg, oral, Daily, Kerline Patel CNP, 75 mcg at 05/03/25 0633 metOLazone (Zaroxolyn) tablet 10 mg, 10 mg, oral, Once, Seven Tapia MD metoprolol tartrate (Lopressor) tablet 75 mg, 75 mg, oral, BID, William Jaime MD, 75 mg at 05/03/25929 midodrine (Proamatine) tablet 5 mg, 5 mg, oral, PRN, Kerline Patel CNP potassium chloride CR (Klor-Con M20) ER tablet 40 mEq, 40 mEq, oral, Daily, Kerline Patel CNP, 40 mEq at 05/03/25 0930 sennosides-docusate sodium (Andree-Colace) 8.6-50 mg per tablet 1 tablet, 1 tablet, oral, BID PRN, Kerline Patel CNP Cosigned by Luis Carrero MD at 05/03/2025 2:33 PM EDT Associated attestation - Luis Carrero MD - 05/03/2025 2:33 PM EDT By using the attestations below, the signing clinician agrees that I have read and verify that thedocumentation has been personally reviewed by me and ensure that the documentation accurately reflects the encounter. GC: I personally saw this patient on the day of the encounter with Dr. White and Dr. Tapia, performed the caceres portion(s) of the service and participated in the management and confirm the resident's documentation. Please note there may be an additional personal documentation from me. * Grey Johns MD - 05/02/2025 2:34 PM EDT Images from the original note were not included. Med-7 Daily Progress Note - 05/02/2025 2:35 PM; Room: [address] [place] [address] Admission: 05/01/2025 5:55 PM; Length of stay: 1 days Code Status: Full Code Discharge Destination: TBD Discharge planning: TBD Overview Patient is seen for evaluation and management of heart failure exacerbation. Claudia Polo is an 75 y.o. female who came from [facility] with prior history of hypertension and diabetes, and chronic kidney disease stage 4. She was previously evaluated in cardiology clinic because of symptoms of angina. Her medications were optimized. . Cardiac catheterization in July 2020 showed severe three-vessel coronary artery disease. She underwent CABG on 07/13/2020. She developed postoperative atrial fibrillation that converted medically. Due to her chronic kidney disease she has a lot of issues with water retention. Currently she is maintained on bumetanide 4 mg twice daily and metolazone 2.5 mg once weekly. Most recently she has been having orthostatic hypotensionand was recommended to take midodrine 5 mg 3 times daily. Today she was seen in cardiology clinic for follow-up. She has been having significant shortness of breath on exertion, volume overload specially in her belly and in her legs. No chest pain. Her blood pressure is uncontrolled. NYHA class III. She has on and off coughing. No fever. She was advised to come to [facility] for CHF exacerbation. Subjective Patient was seen and examined at bedside. Afebrile, hemodynamically stable, starting well on 2 L per nasal cannula. Patient reports she does not use oxygen at home but believes it will help her with her daily functioning. Patient reports she was recently discharged from [facility] due to a CHF exacerbation. She states her diuretic dose was reduced due to worsening kidney function but once she returned home she started retaining fluids and became progressively more short of breath. She notes she retains fluids mostly in her abdomen and lower extremities. Physical Exam Visit Vitals BP 171/89 Pulse 73 Temp 36 ??C (96.8 ??F) (Temporal) Resp 16 Intake/Output Summary (Last 24 hours) at 05/02/2025 1435 Last data filed at 05/02/2025 1146 Gross per 24 hour Intake -- Output 635 ml Net -635 ml Physical Exam Eyes: Extraocular Movements: Extraocular movements intact. Conjunctiva/sclera: Conjunctivae normal. Cardiovascular: Rate and Rhythm: Normal rate and regular rhythm. Pulses: Normal pulses. Pulmonary: Effort: Pulmonary effort is normal. Breath sounds: No wheezing. Comments: Requiring 2 L per nasal cannula Abdominal: General: Bowel sounds are normal. There is distension. Tenderness: There is no abdominal tenderness. There is no guarding. Musculoskeletal: Right lower leg: Edema present. Left lower leg: Edema present. Skin: General: Skin is warm and dry. Neurological: Mental Status: She is oriented to person, place, and time. Mental status is at baseline. Estimated body mass index is 30.99 kg/m?? as calculated from the following: Height as of this encounter: 1.422 m (4' 8 ). Weight as of this encounter: 62.7 kg (138 lb 3.7 oz). Active Inpatient Problems Principal Problem: Acute on chronic heart failure with preserved ejection fraction (HFpEF) ([facility]) Active Problems: Hypertensive disorder Stage 4 chronic kidney disease ([facility]) Type 2 diabetes mellitus ([facility]) Assessment and Plan Acute on chronic heart failure with preserved ejection fraction -Patient presented for worsening MCALLISTER, weight gain, lower extremity edema, and abdominal distention -Chest x-ray showing mild pulmonary edema -BNP 1236 -Patient volume overloaded on physical examination - Echo on 05/02/25 calculated EF 63%, mild MR, moderate tricuspid regurgitation - Cardiology on board, appreciate recs - Right heart cath 05/02 mildly elevated right-sided heart pressures, elevated PCWP, consistent with biventricular heart failure - Consider adding Aldactone if feasible with renal - Continue Bumex 3 mg IV BID, continue to increase the dose -Continue Lopressor 75 mg twice daily - Strict I&Os, daily weights CAD status post CABG 2020 - Three-vessel coronary artery disease visualized on cardiac cath 07/2020 - Resume aspirin and atorvastatin CKD stage 4 - Chronically retaining fluids, family requesting nephrology consult -On admission creatinine - Continue to monitor kidney function - Avoid nephrotoxic agents Essential hypertension - Continue Norvasc 10 mg daily - Continue hydralazine 50 mg twice daily Type 2 diabetes mellitus - low intensity sliding scale Hypothyroidism - TSH 4.54 on 05/02 - Continue levothyroxine 75 mcg daily Nutrition Screen VTE Prophylaxis: Heparin subcutaneous Scheduled Meds allopurinol, 100 mg, oral, Daily amLODIPine, 10 mg, oral, Daily aspirin, 81 mg, oral, q AM atorvastatin, 40 mg, oral, Nightly bumetanide, 3 mg, intravenous, BID heparin (porcine), 5,000 Units, subcutaneous, q12h PONCHO hydrALAZINE, 50 mg, oral, BID insulin lispro, 0-5 Units, subcutaneous, TID with meals And insulin lispro, 0-4 Units, subcutaneous, Nightly isosorbide mononitrate ER, 30 mg, oral, Once Daily levothyroxine, 75 mcg, oral, Daily metoprolol tartrate, 75 mg, oral, BID potassium chloride CR, 40 mEq, oral, Daily Pertinent Investigations Hematology: Results from last 7 days Lab Units 05/02/25 0546 05/02/25 0024 WBC AUTO 10*3/uL 10.61* 10.31 HEMOGLOBIN g/dL 9.0* 8.5* HEMATOCRIT % 26.9* 26.1* MCV fL 88.5 89.1 PLATELETS AUTO 10*3/uL 186 182 Chemistry: Results from last 7 days Lab Units 05/02/25 0546 05/02/25 0024 SODIUM mmol/L 138 137 POTASSIUM mmol/L 3.9 3.9 CHLORIDE mmol/L 108* 106 CO2 mmol/L 21 21 BUN mg/dL 60* 58* CREATININE mg/dL 2.77* 2.85* GLUCOSE mg/dL 147* 146* MAGNESIUM mg/dL -- 2.1 CALCIUM mg/dL 8.6 8.5* No lab exists for component: AFIO2 , APHT , APCOT , APOT , ATCO2 , CK , ALB , IBILI Results from last 7 days Lab Units 05/02/25 1218 POCT GLUCOSE mg/dL 158* Historical Values: (Includes values prior to this admission) Lab Results Component Value Date TSH 4.54 05/02/2025 No results found for: [id number] , IRON , TIBC , C3 , C4 , NEERU , CANCA , ASO , PSA , CEA , CA125 , CA199 , AFP , CA153 Imaging XR chest 1 view Narrative: HISTORY: Shortness of breath COMPARISON: 07/27/2020 FINDINGS: Portable AP upright view of the chest was performed. 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 Heart size is mildly enlarged but stable. Increased prominence of interstitial markings suggestive of pulmonary edema. Atelectasis or scarring in the left midlung. No significant pleural effusion or pneumothorax. Surgical clips overlie the right upper quadrant. Impression: * Mild pulmonary edema. Electronically signed: Julio Andrew. Complete Echo (TTE) w/wo Imaging Agent, Strain, 3D, Bubble Study 1 1 [facility] Heart Station [address] [phone] (fax) Echocardiogram-[facility] Name: CLAUDIA POLO Study Date: 05/02/2025 07:57 AM B/P: 164 mmHg/64 mmHg HR: 72 bpm Date of : 1950 Location: [facility] Height: 56 in. Age: 75 year(s) Patient Room: 3186 Weight: 138 lb. Gender: Female Patient Status: InPt BSA: 1.52 m2 Indication: CABG, Congestive Heart Failure, Hypertension Examination: Echocardiogram (Complete) Image Quality: Good Patient Consent: Procedure explained to patient Conclusions Left Ventricle: The left ventricle is normal size. Global left ventricular systolic function is normal. The calculated Biplane EF is 63 %. Left ventricular wall thickness is normal. No regional wall motion abnormality. Unable to assess diastolic dysfunction. Right Ventricle: The right ventricle is normal in size. Mildly reduced right ventricular systolic function. Doppler studies suggest severely elevated right sided pressures. Left Atrium: The left atrium is normal in size. Mitral Valve: Mild mitral regurgitation. Mild mitral valve stenosis. There is moderate mitral annular calcification. Tricuspid Valve: Moderate tricuspid regurgitation. Measurements Left Ventricle Label Value Normal Value LVOTd 1.7 cm (18cm - 20cm) LVOT VTI 30.7 cm (18cm - 22cm) LVOT PGmax 6 mmHg LVDd, 2D 4.71 cm (3.9cm - 5.3cm) LVDs, 2D 3.08 cm (2.1cm - 4cm) IVSd, 2D 0.86 cm (0.6cm - 1.1cm) LVPWd, 2D 1.11 cm (0.6cm - 0.9cm) LVEF, BP 63 % (55% - 65%) LV Mass, 2D ASE 161.67 g LV Mass Index, 2D ASE 106.4 g/m?? (44g/m?? - 88.4g/m??) RWT, MM 0.47 (0 - 0.42) LVSVI, 2D 43.4 ml/m2 LVOT PGmean 3 mmHg LVSV_LVOT 70 ml Right Ventricle Label Value Normal Value RVDd, 2D 3.66 cm (1.9cm - 3.8cm) TAPSE 1.5 cm Left Atrium Label Value Normal Value LA Volume, BP 51 ml (22ml - 52ml) LADs, 2D 3.3 cm (2.7cm - 3.8cm) LAESV index, BP 33.6 ml/m?? Right Atrium Label Value Normal Value RA Area 15.7 cm?? Aortic Valve Label Value Normal Value AV DVI 0.66 AV VTI 44.8 cm Mitral Valve Label Value Normal Value MV E Vmax 1.87 m/s MV A Vmax 1.34 m/s MV E/A 1.4 MV E/E' lateral 26.9 MV E' lateral 0.07 m/s Tricuspid Valve Label Value Normal Value RA Pressure 8 mmHg RVSP 72 mmHg Aorta Label Value Normal Value AoRoot, 2D 2.7 cm (1.4cm - 3.8cm) Great Vessels Label Value Normal Value IVC 2 cm (1.2cm - 2.3cm) Valvular Assessment LVOT 0.7 - 1.1 m/sec Aortic Valve 1.0 - 1.7 m/sec Mitral Valve 0.6 - 1.3 m/sec Tricuspid Valve 0.3 - 0.7 m/sec Pulmonic Valve 0.6 - 0.9 m/sec Regurgitation No Mild Moderate No Stenosis No Mild No No Max Velocity 1.23 m/sec 1.87 m/s 1.87 m/sec Max Gradient 14.00 mmHg 13.00 mmHg Mean Gradient 8.00 mmHg 6.00 mmHg Valve Area 1.5 cm?? 2.3 cm?? Findings Left Ventricle: The left ventricle is normal size. Global left ventricular systolic function is normal. The calculated Biplane EF is 63 %. Left ventricular wall thickness is normal. No regional wall motion abnormality. Unable to assess diastolic dysfunction. Right Ventricle: The right ventricle is normal in size. Mildly reduced right ventricular systolic function. Doppler studies suggest severely elevated right sided pressures. Left Atrium: The left atrium is normal in size. Right Atrium: The right atrium is normal in size. Mitral Valve: Mild mitral regurgitation. Mild mitral valve stenosis. There is moderate mitral annular calcification. Mitral Valve Measurements MV Vmax: 1.80 m/s. MV Vmean: 1.19 m/s. MV PGmax: 13.00 mmHg. MV PGmean: 6.00 mmHg. Aortic Valve: The aortic valve is normal. No aortic valve regurgitation. No aortic valve stenosis. The aortic valve is trileaflet. Tricuspid Valve: The tricuspid valve leaflets are thickened. Moderate tricuspid regurgitation. No tricuspid valve stenosis. Pulmonic Valve: Normal pulmonary valve. No pulmonary regurgitation. No pulmonic valve stenosis. Aorta: The aortic root exhibits normal size. Great Vessels: IVC: The IVC is normal in size. Respiratory inspiration less than 50%. Pericardium: No pericardial effusion. Procedure Staff Reading Group: [facility] Referring Physician: JOHN PERDOMO Audio Video Mechanic: Jessica Bain [facility] Ordering Physician: EH HIGUERA Cardiac catheterization Cardiovascular Laboratory Report FINAL IMPRESSIONS: Moderately elevated right-sided heart pressures and severely elevated pulmonary capillary wedge pressure consistent with biventricular congestive heart failure Normal transpulmonary gradient along with the elevated wedge consistent with postcapillary pulmonary venous hypertension Giant V waves on wedge pressure tracing suggestive of significant diastolic dysfunction and/or mitral regurgitation Severe systemic hypertension Normal cardiac output/cardiac index RECOMMENDATIONS: Uptitrate IV diuresis, monitor strict inputs and outputs and daily weights Aggressive cardiovascular risk factor modification A complete echocardiogram to evaluate ejection fraction, wall motion abnormalities, and valvular function Optimal medical therapy for heart failure with preserved ejection fraction should include an SGLT2 inhibitor and spironolactone if feasible from a renal standpoint Further recommendations deferred to the inpatient services PROCEDURES: Ultrasound-guided access to the right internal jugular vein, right heart catheterization METHODS: After risks, benefits, and alternatives were explained, written informed consent was obtained. The patient was prepped and draped in usual sterile fashion over the right neck. Using 1% lidocaine solution, local infiltration anesthesia was achieved. Using a modified Seldinger technique, a micropuncture kit, and under ultrasound guidance, access to the right internal jugular vein was obtained. This was exchanged out for a 6 [place] 11 cm sheath. Right heart catheterization was performed using a Dumont catheter via the venous sheath. Pressures were measured in the right atrium, right ventricle, pulmonary artery, and pulmonary capillary wedge positions. Oxygen saturations were obtained and cardiac output/cardiac index was calculated using the modified Macarena principle. The Dumont catheter was removed. After reviewing the hemodynamic data, it was elected to conclude the procedure. All catheters removed. The venous sheath was removed with application of manual pressure to achieve optimal hemostasis. Overall the patient tolerated the procedure well. There were no overt complications. He was to be transferred to the holding area in stable condition. FINDINGS: Hemodynamics: RA 16 RV 56/9, 15 PA 56/27 [42] PCWP 31 TPG 11 AO 161/58 [98] Cardiac output /cardiac index 5.00/3.29 AO sat /PA sat 95%/64% INDICATIONS: Acute on chronic heart failure with preserved ejection fraction ECG 12 lead Normal sinus rhythm Abnormal QRS-T angle, consider primary T wave abnormality Abnormal ECG When compared with ECG of 14-JUL-2020 06:44, ST no longer elevated in Lateral Nonspecific T wave abnormality now evident in Lateral Discharge Planning Signed Grey Johns MD Internal Medicine Resident, PGY1 [facility] 05/02/2025 2:35 PM Cosigned by Eh Higuera MD at 05/06/2025 8:05 AM EST Associated attestation - Eh Higuera MD - 05/06/2025 8:05 AM EST By using the attestations below, the signing clinician agrees that I have read and verify that thedocumentation has been personally reviewed by me and ensure that the documentation accurately reflects the encounter. GC: I personally saw this patient on the day of the encounter, performed the caceres portion(s) of the service and participated in the management and confirm the resident's documentation. Please note there may be an additional personal documentation from me. Additional Comments: See H&P. documented in this encounter H&P Notes * Shima Francois MD - 05/03/2025 4:10 AM EDT Case was discussed with the JOSUE on 05/01/2025. I agree with the history, physical, assessment, and plan of care. I discussed the findings and therapeutic plan. I agree with the documentation, except for any updates below. Shima Francois MD * Tiffany Encinas MD - 05/02/2025 11:07 AM EDT She is a 74-year-old woman with prior history of hypertension, diabetes and 3VCAD s/p CABG on 07/13/2020 (KINNEY to LAD, SVG to PDA) presents for a RHC for further evaluation of SOB and acute on chronicHFpEF. H&P reviewed. The patient was examined and there are no changes to the H&P. Cosigned by Rickey Jackson MD at 05/02/2025 11:12 AM EDT Associated attestation - Rickey Jackson MD - 05/02/2025 11:12 AM EDT Rickey Jackson MD, MPH, FACC, [facility] Interventional Cardiology Pager Email: [email or web address] Source Note - Bran Fish MD - 04/07/2025 3:00 PM EDT Images from the original note were not included. [place] [facility] - [facility] Subjective Claudia Polo is a 74 [...] Rfl: 3 ergocalciferol (Vitamin D-2) 1.25 MG (27678 UT) capsule, Take 1 capsule by mouth [...] triggered events with heart rates averaging 85-1 12 2019: Normal Assessment/Plan Diagnoses and all orders for this visit: Acute on chronic diastolic congestive heart failure (CMS/HCC) - Basic metabolic panel; Future - bumetanide (Bumex) 2 mg tablet; Take 2 tablets (4 mg) by mouth two times daily. Coronary artery disease involving solomon coronary artery of solomon heart without angina pectoris Essential (primary) hypertension History of coronary artery bypass surgery Stage 4 chronic kidney disease (CMS/HCC) Claudia is a 74-year-old woman with severe [...] 1 week (around 04/14/2025). Bran Fish MD * Shima Francois MD - 05/02/2025 5:15 AM EDT Case was discussed with the JOSUE on 05/01/2025. I agree with the history, physical, assessment, and plan of care. I discussed the findings and therapeutic plan. I agree with the documentation, except for any updates below. Shima Francois MD * Kerline Patel CNP - 05/02/2025 12:34 AM EDT Images from the original note were not included. Hospital Medicine History and Physical 05/02/2025 12:34 AM THE HOSPITALIST TEAM PREFERS TO USE ON [employer] [facility] CHAT FOR NON-URGENT COMMUNICATION 7AM- 7PM. IF I DO NOT RESPOND WITHIN 20 MINUTES OR URGENT MATTERS, PLEASE CALL THROUGH THE FUNCTIONAL TESTER TYPEWRITERS. FROM 7PM-7AM, PLEASE PAGE [phone](COVR). Chief Complaint SOB History of Present Illness Claudia Polo is an 75 y.o. female who came from [facility] with prior history of hypertension and diabetes, and chronic kidney disease stage 4. She was previously evaluated in cardiology clinic because of symptoms of angina. Her medications were optimized. . Cardiac catheterization in July 2020 showed severe three-vessel coronary artery disease. She underwent CABG on 07/13/2020. She developed postoperative atrial fibrillation that converted medically. Due to her chronic kidney disease she has a lot of issues with water retention. Currently she is maintained on bumetanide 4 mg twice daily and metolazone 2.5 mg once weekly. Most recently she has been having orthostatic hypotensionand was recommended to take midodrine 5 mg 3 times daily. Today she was seen in cardiology clinic for follow-up. She has been having significant shortness of breath on exertion, volume overload specially in her belly and in her legs. No chest pain. Her blood pressure is uncontrolled. NYHA class III. She has on and off coughing. No fever. She was advised to come to [facility] for CHF exacerbation. Review of System and Physical Exam Temp: [36 ??C (96.8 ??F)] 36 ??C (96.8 ??F) Heart Rate: [71-73] 71 Resp: [20-23] 20 BP: (155-172)/(47-86) 161/47 Physical Exam Constitutional: Appearance: Normal appearance. HENT: Head: Normocephalic and atraumatic. Nose: Nose normal. Eyes: Pupils: Pupils are equal, round, and reactive to light. Cardiovascular: Rate and Rhythm: Normal rate and regular rhythm. Pulses: Normal pulses. Heart sounds: Normal heart sounds. Pulmonary: Effort: Pulmonary effort is normal. Breath sounds: Normal breath sounds. Abdominal: General: Bowel sounds are normal. There is distension. Palpations: Abdomen is soft. Musculoskeletal: General: Normal range of motion. Cervical back: Normal range of motion and neck supple. Skin: General: Skin is warm and dry. Capillary Refill: Capillary refill takes less than 2 seconds. Neurological: Mental Status: She is alert and oriented to person, place, and time. Psychiatric: Mood and Affect: Mood normal. Behavior: Behavior normal. Thought Content: Thought content normal. Judgment: Judgment normal. Review of Systems Constitutional: Positive for activity change and fatigue. HENT: Negative. Eyes: Negative. Respiratory: Positive for cough and shortness of breath. Cardiovascular: Positive for leg swelling. Gastrointestinal: Negative. Endocrine: Negative. Genitourinary: Negative. Musculoskeletal: Positive for back pain and myalgias. Skin: Negative. Allergic/Immunologic: Negative. Neurological: Positive for weakness. Hematological: Negative. Psychiatric/Behavioral: Negative. Assessment and Plan Assessment & Plan Acute on chronic heart failure with preserved ejection fraction (HFpEF) ([facility]) Start Bumex 2mg IV BID Weigh patient daily Fluid restriction Cardiology consult NPO at midnight for possible right heart cath Hypertensive disorder Resume home medications Stage 4 chronic kidney disease ([facility]) Monitor kidney functions Avoid nephrotoxic drugs Appreciate nephrology recommendations Type 2 diabetes mellitus ([facility]) Glucose management protocol Sliding scale Hypoglycemia management VTE Prophylaxis: Heparin subcutaneous ----- Focus of this inpatient stay will remain on problems that need acute care setting for care. We will review available studies and will order additional labs, imaging and other studies as appropriate. As needed medicines are ordered as appropriate. VTE Prophylaxis will be ordered as appropriate. Please see above for management plan for individual hospital problems. Home medications are reviewed and will be continued as appropriate. Patient will be continued to be followed during this hospital stay by a member of [facility]. Past Medical History Medical History[1] Past Surgical History Surgical History[2] Social History Social History Socioeconomic History Marital status: Spouse name: Not on file Number of children: Not on file Years of education: Not on file Highest education level: Not on file Occupational History Not on file Tobacco Use Smoking status: Never Smokeless tobacco: Never Substance and Sexual Activity Alcohol use: Not Currently Drug use: Never Sexual activity: Defer Other Topics Concern Not on file Social History Narrative Not on file Social Drivers of Health Financial Resource Strain: Low Risk (05/01/2025) Overall Financial Resource Strain (CARDIA) Difficulty of Paying Living Expenses: Not hard at all Food Insecurity: No Food Insecurity (05/01/2025) Hunger Vital Sign Worried About Running Out of Food in the Last Year: Never true Ran Out of Food in the Last Year: Not on file Transportation Needs: No Transportation Needs (05/01/2025) Transportation Lack of Transportation (Medical): No Lack of Transportation (Non-Medical): Not on file Physical Activity: Not on file Stress: Not on file Social Connections: Not on file Intimate Partner Violence: Unknown (05/01/2025) Humiliation, Afraid, Rape, and Kick questionnaire Fear of Current or Ex-Partner: No Emotionally Abused: Not on file Physically Abused: Not on file Sexually Abused: Not on file Housing Stability: Low Risk (05/01/2025) Housing Stability Vital Sign Unable to Pay for Housing in the Last Year: No Number of Times Moved in the Last Year: Not on file Homeless in the Last Year: No Family History family history includes Heart attack in her father and mother; Heart failure in her mother. Allergies is allergic to erythromycin, erythromycin base, hydromorphone, penicillins, and spironolactone. Prior to Admission Medications Prescriptions Prior to Admission[3] Labs Labs Reviewed CBC BASIC METABOLIC PANEL B-TYPE NATRIURETIC PEPTIDE MAGNESIUM Imaging XR chest lateral decubitus Narrative: [facility] Department of Radiology [address] [place] [address] Junior akhtar Name: CLAUDIA POLO : 1950 Sex: F Age: Race: White^White Pt. Location: Patient Status: O Ordered Date: 07/27/2020 11:25:00 AM Completed Date: 07/27/2020 11:33 AM Requesting Provider: FREEDOM RING Attending Provider: FREEDOM RING Report Copy To: Signs & Symptoms: R05 Cough I10 History: Rosa Maria Comments: Exam: CHEST AND LATERAL CHEST AND LATERAL 07/27/2020 11:33 AM CLINICAL INDICATIONS: R05 Cough I10 TECHNOLOGIST COMMENTS: pt states short of breath, HTN, recent open heart surgery PROTOCOL: AP(PA) and Lateral views were obtained. COMPARISON: None Impression: Blunting of both costophrenic angles has developed represent small bilateral pleural effusions. No pneumothorax. No consolidative airspace disease. Cardiac silhouette size appears stable. Central vessels appear stable. Cerclage wires are unchanged. Follow-up is suggested Electronically signed: Marli Seo. Transcribed by: [email or web address], User Resident: Electronically Signed by: MARLI SEO @ 07/27/2020 01:07 PM [facility]igned [facility] 05/02/2025 12:34 AM [1] Past Medical History: Diagnosis Date CHF (congestive heart failure) (CMS/HCC) Chronic kidney disease Coronary artery disease Diabetes mellitus (CMS/HCC) Hypertension [2] Past Surgical History: Procedure Laterality Date CARDIAC CATHETERIZATION CORONARY ARTERY BYPASS GRAFT KNEE ARTHROPLASTY [3] Medications Prior to Admission Medication Sig Dispense Refill Last Dose/Taking allopurinol (Zyloprim) 100 mg tablet TAKE 1 [...] tablet 3 bumetanide (Bumex) 2 mg tablet Take 2 tablets (4 mg) by mouth two times daily. (Patient taking differently: Take 2 mg by mouth in the morning.) 360 tablet 3 doxazosin (Cardura) 4 mg tablet TAKE 1 AND 1/2 TABLETS BY MOUTH TWICE A DAY (Patient not taking: Reported on 05/01/2025) 270 tablet 3 ergocalciferol (Vitamin D-2) 1.25 MG (39292 UT) capsule Take 1 capsule by mouth 1 (one) time per week. ferrous sulfate 325 (65 Fe) MG tablet TAKE 1 TABLET BY MOUTH EVERY OTHER DAY FOR 90 DAYS folic acid (Folvite) 1 mg tablet Take 1 mg by mouth in the morning. hydrALAZINE (Apresoline) 50 mg tablet TAKE 1 TABLET BY MOUTH TWO TIMES DAILY. (Patient taking differently: Take 50 mg by mouth four times daily.) 180 tablet 3 insulin glargine (Lantus) 100 unit/mL (3 mL) pen Inject under the skin. (Patient taking differently: Inject under the skin if needed.) isosorbide mononitrate ER (Imdur) 30 mg 24 hr tablet Take 1 tablet (30 mg) by mouth once daily as directed. Do not crush or chew. 90 tablet 3 levothyroxine (Synthroid, Levoxyl) 50 mcg tablet Take 1 tablet by mouth in the morning. (Patient taking differently: Take 75 mcg by mouth in the morning.) metOLazone (Zaroxolyn) 2.5 mg tablet TAKE 1 TABLET BY MOUTH IF NEEDED FOR SWELLING OR WEIGHT GAIN (Patient not taking: Reported on 05/01/2025) 90 tablet 1 metoprolol tartrate (Lopressor) 50 mg tablet Take 1.5 tablets (75 mg) by mouth in the morning and at bedtime. (Patient taking differently: Take 50 mg by mouth in the morning and at bedtime.) midodrine (Proamatine) 5 mg tablet Take 1 tablet (5 mg) by mouth if needed (as needed for orthostatic hypotension). (Patient not taking: Reported on 05/01/2025) 90 tablet 3 nitroglycerin (Nitrostat) 0.[address] 1 tablet (0.4 mg) under the tongue every 5 (five) minutes if needed for chest pain. 25 tablet 3 potassium chloride CR (Klor-Con M20) 20 mEq ER tablet Take 40 mEq by mouth in the morning. Cosigned by Shima Francois MD at 05/03/2025 4:10 AM EDT documented in this encounter Consult Notes * Johnny Hines MD - 05/03/2025 12:36 PM EDTAssociated Order(s): IP CONSULT TO NEPHROLOGY Images from the original note were not included. Nephrology Consult Note Patient : Claudia Polo; 75 y.o. Location: [id number]/3186-01 Attending: Eh Higuera MD Admit Date: 05/01/2025 Hospital Day: 2 Reason for Consult: ORI on CKD stage 4, diuretic management. History of Present Illness: Claudia Polo is a 75 y.o. female with PMH significant for CKD stage IV (baseline creatinine appears to be around 2-2.4), type 2 diabetes mellitus, and essential hypertension who was admitted to [facility] as a transfer from [facility] on 05/01/2025 after she initially presented with increased shortness of breath and swelling in the abdomen/lower extremities concerning for CHF exacerbation. Ofnote, patient had a cardiac catheterization back in 2020 which demonstrated severe three-vessel disease. Following admission, cardiology was consulted and patient underwent right heart catheterization demonstrating mean pulmonary arterial pressure of 42, and a wedge pressure of 31. Patient also had echocardiogram which demonstrated EF of 63%. Labs on admission demonstrated creatinine 2.85/BUN 58.Nephrology service was consulted for management of ORI and diuretics. Review of Systems: Review of Systems Constitutional: Negative for chills, diaphoresis, fatigue and fever. Respiratory: Positive for shortness of breath (with exertion). Negative for cough and wheezing. Cardiovascular: Negative for chest pain, palpitations and leg swelling. Gastrointestinal: Negative for abdominal pain, constipation, diarrhea, nausea and vomiting. Genitourinary: Negative for dysuria, frequency, hematuria and urgency. Neurological: Negative for dizziness, weakness and light-headedness. Input/Output: I/O last 3 completed shifts: In: - (0 mL/kg) Out: 1035 (18 mL/kg) [Urine:1025 (0.5 mL/kg/hr); Blood:10] Weight: 57.5 kg Vital Signs: Temperature: Temp: 36.4 ??C (97.5 ??F) TMax: Temp (24hrs), Av.2 ??C (97.2 ??F), Min:36.1 ??C (97 ??F), Max:36.4 ??C (97.5 ??F) Respirations: Resp: 16 Pulse: Heart Rate: 72 BP: BP: 143/70 BP Range: Systolic (24hrs), Av , Min:113 , Max:171 Diastolic (24hrs), Av, Min:42, Max:94 Wt Readings from Last 3 Encounters: 05/03/25 57.5 kg (126 lb 12.2 oz) 05/01/25 58.1 kg (128 lb) 04/15/25 56.2 kg (124 lb) Physical Examination: Physical Exam Constitutional: General: She is not in acute distress. Appearance: She is not ill-appearing. HENT: Head: Normocephalic and atraumatic. Eyes: General: No scleral icterus. Cardiovascular: Rate and Rhythm: Normal rate and regular rhythm. Heart sounds: No murmur heard. No friction rub. Gallop present. S3 sounds present. Pulmonary: Effort: Pulmonary effort is normal. No respiratory distress. Breath sounds: Normal breath sounds. No wheezing, rhonchi or rales. Musculoskeletal: Right lower leg: No edema. Left lower leg: No edema. Skin: General: Skin is warm and dry. Neurological: General: No focal deficit present. Mental Status: She is alert and oriented to person, place, and time. Psychiatric: Mood and Affect: Mood normal. Labs: Chemistry: Lab Results Component Value Date NA 138 05/03/2025 K 4.0 05/03/2025 CL 108 (H) 05/03/2025 CO2 20 (L) 05/03/2025 CO2 27 07/18/2020 ANIONGAP 14 05/03/2025 BUN 61 (H) 05/03/2025 CREATININE 2.76 (H) 05/03/2025 EGFR 17.5 (L) 05/03/2025 GLU 81 07/18/2020 CALCIUM 8.6 05/03/2025 MG 2.1 05/02/2025 PHOS 4.4 07/18/2020 ALBUMIN 3.2 (L) 07/11/2020 PROT 6.0 07/11/2020 AST 18 07/11/2020 ALT 18 07/11/2020 BILITOT 0.3 07/11/2020 ALKPHOS 57 07/11/2020 Hematology & Iron studies: Lab Results Component Value Date WBC 9.33 05/03/2025 HGB 8.8 (L) 05/03/2025 HCT 26.5 (L) 05/03/2025 MCV 89.5 05/03/2025 PLT 180 05/03/2025 IRON 53 05/02/2025 TIBC 235 (L) 05/02/2025 UIBC 182.0 05/02/2025 IRONSAT 23 05/02/2025 FERRITIN 204.0 05/02/2025 Urine chemistry: Lab Results Component Value Date PROTUR 100 (A) 07/11/2020 Urinalysis & Microscopy: Lab Results Component Value Date COLORU STRAW (A) 07/11/2020 CLARITYU CLEAR 07/11/2020 SPECGRAVU 1.008 (L) 07/11/2020 PROTUR 100 (A) 07/11/2020 LEUKOCYTESU NEGATIVE 07/11/2020 NITRITEU NEGATIVE 07/11/2020 GLUCOSEU NEGATIVE 07/11/2020 BLOODU LARGE (A) 07/11/2020 WBCU 0-2 (A) 07/11/2020 SQUAMEPIU NONE SEEN 07/11/2020 Urine Eosinophils: No components found for: UEOS Serology & Other labs: BNP: Lab Results Component Value Date BNP 1,236 (H) 05/02/2025 NEERU: No results found for: NEERU SPEP:No results found for: PROT UPEP: No components found for: LABPE C3: No results found for: C3 C4: No results found for: C4 MPO ANCA: No components found for: MPO PR3 ANCA: No components found for: PR3 Anti-GBM: No components found for: GBMABIGG Hep BsAg: No results found for: HEPBSAG Hep C AB: No results found for: HEPCAB Outpatient Medications & Allergies: Medication Documentation Review Audit Reviewed by Li Cabral RN (Registered Nurse) on 05/01/25 at 1945 Medication Order Taking? Sig Documenting Provider Last Dose Status allopurinol (Zyloprim) 100 mg tablet [id number] TAKE 1 TABLET BY MOUTH ONCE DAILY FOR 90 DAYS Historical MD Marcelo Active amLODIPine (Norvasc) 10 mg tablet [id number] TAKE 1 TABLET BY MOUTH EVERY DAY Bran Fish MD Active aspirin 81 mg EC tablet [id number] Take 1 tablet every day by oral route. Drea Robertson MD Active atorvastatin (Lipitor) 40 mg tablet [id number] TAKE 1 TABLET BY MOUTH EVERYDAY AT BEDTIME Bran Fish MD Active bumetanide (Bumex) 2 mg tablet [id number] Take 2 tablets (4 mg) by mouth two times daily. Patient taking differently: Take 2 mg by mouth in the morning. Bran Fish MD Active doxazosin (Cardura) 4 mg tablet [id number] TAKE 1 AND 1/2 TABLETS BY MOUTH TWICE A DAY Patient not taking: Reported on 05/01/2025 Bran Fish MD Active ergocalciferol (Vitamin D-2) 1.25 MG (54467 UT) capsule [id number] Take 1 capsule by mouth 1 (one) time per week. Drea Robertson MD Active ferrous sulfate 325 (65 Fe) MG tablet [id number] TAKE 1 TABLET BY MOUTH EVERY OTHER DAY FOR 90 DAYS Historical MD Marcelo Active folic acid (Folvite) 1 mg tablet [id number] Take 1 mg by mouth in the morning. Drea ProviderMD Active hydrALAZINE (Apresoline) 50 mg tablet [id number] TAKE 1 TABLET BY MOUTH TWO TIMES DAILY. Patient taking differently: Take 50 mg by mouth four times daily. Emilia To, IRISH Active insulin glargine (Lantus) 100 unit/mL (3 mL) pen [id number] Inject under the skin. Patient taking differently: Inject under the skin if needed. Historical Provider, Active isosorbide mononitrate ER (Imdur) 30 mg 24 hr tablet [id number] Take 1 tablet (30 mg) by mouth once daily as directed. Do not crush or chew. Bran Fish MD Active levothyroxine (Synthroid, Levoxyl) 50 mcg tablet [id number] Take 1 tablet by mouth in the morning. Patient taking differently: Take 75 mcg by mouth in the morning. Historical Provider, Active metOLazone (Zaroxolyn) 2.5 mg tablet [id number] TAKE 1 TABLET BY MOUTH IF NEEDED FOR SWELLING OR WEIGHT GAIN Patient not taking: Reported on 05/01/2025 Bran Fish MD Active metoprolol tartrate (Lopressor) 50 mg tablet [id number] Take 1.5 tablets (75 mg) by mouth in the morning and at bedtime. Patient taking differently: Take 50 mg by mouth in the morning and at bedtime. Emilia To CNP Active midodrine (Proamatine) 5 mg tablet [id number] Take 1 tablet (5 mg) by mouth if needed (as needed for orthostatic hypotension). Patient not taking: Reported on 05/01/2025 Bran Fish MD Active nitroglycerin (Nitrostat) 0.4 mg SL tablet [id number] Place 1 tablet (0.4 mg) under the tongue every 5 (five) minutes if needed for chest pain. Bran Fish MD Active potassium chloride CR (Klor-Con M20) 20 mEq ER tablet [id number] Take 40 mEq by mouth in the morning. Historical Provider, Active Allergies[1] Current Inpatient Medications: Scheduled Meds: allopurinol, 100 mg, oral, Nightly amLODIPine, 10 mg, oral, Daily aspirin, 81 mg, oral, q AM atorvastatin, 40 mg, oral, Nightly bumetanide, 3 mg, intravenous, BID heparin (porcine), 5,000 Units, subcutaneous, q12h PONCHO hydrALAZINE, 50 mg, oral, BID insulin lispro, 0-5 Units, subcutaneous, TID with meals And insulin lispro, 0-4 Units, subcutaneous, Nightly isosorbide mononitrate ER, 30 mg, oral, Once Daily levothyroxine, 75 mcg, oral, Daily metOLazone, 10 mg, oral, Once metoprolol tartrate, 75 mg, oral, BID potassium chloride CR, 40 mEq, oral, Daily Continuous Infusions: PRN Meds: PRN medications: acetaminophen, glucose OR dextrose 50 % in water (D50W), midodrine, sennosides-docusate sodium Past Medical/Surgical/Social/Family History: Medical History[2] Surgical History[3] Social History Socioeconomic History Marital status: Spouse name: Not on file Number of children: Not on file Years of education: Not on file Highest education level: Not on file Occupational History Not on file Tobacco Use Smoking status: Never Smokeless tobacco: Never Substance and Sexual Activity Alcohol use: Not Currently Drug use: Never Sexual activity: Defer Other Topics Concern Not on file Social History Narrative Not on file Social Drivers of Health Financial Resource Strain: Low Risk (05/01/2025) Overall Financial Resource Strain (CARDIA) Difficulty of Paying Living Expenses: Not hard at all Food Insecurity: No Food Insecurity (05/01/2025) Hunger Vital Sign Worried About Running Out of Food in the Last Year: Never true Ran Out of Food in the Last Year: Not on file Transportation Needs: No Transportation Needs (05/01/2025) Transportation Lack of Transportation (Medical): No Lack of Transportation (Non-Medical): Not on file Physical Activity: Not on file Stress: Not on file Social Connections: Not on file Intimate Partner Violence: Unknown (05/01/2025) Humiliation, Afraid, Rape, and Kick questionnaire Fear of Current or Ex-Partner: No Emotionally Abused: Not on file Physically Abused: Not on file Sexually Abused: Not on file Housing Stability: Low Risk (05/01/2025) Housing Stability Vital Sign Unable to Pay for Housing in the Last Year: No Number of Times Moved in the Last Year: Not on file Homeless in the Last Year: No Family History[4] Radiology: === 05/01/25 === XR CHEST 1 VIEW - Impression - * Mild pulmonary edema. Electronically signed: Julio Andrew. Assessment: ORI in the setting of CKD stage 4. Nopqu-sf-puredfr heart failure exacerbation. Triple-vessel CAD demonstrated on cardiac catheterization (2020). Insulin-dependent type 2 diabetes mellitus. Hypothyroidism. Essential hypertension. Iron-deficiency anemia. Plan: Anemia panel demonstrated normal iron and ferritin levels, will hold off on Aranesp at this time. Follow-up on phosphorus level, urine protein/creatinine ratio, PTH, and urinalysis. Starting patient on sodium bicarb 650 mg oral twice daily. Discussed case with primary team, from nephrology standpoint, if patient does not experience significant desaturation with home O2 evaluation today, patient can discharge home with Bumex 3 mg oral twice daily, and metolazone 2.5 mg that she can take daily as needed for shortness of breath or >2 pound weight gain. Otherwise, if patient does then they can give additional dose of IV Bumex today for total of 3 doses and reassess tomorrow morning. Heart failure/GDMT management per cardiology service. Continue to trend daily renal chemistries. Maintain strict intake/output. Avoid nephrotoxic medications. Rest of medical management per primary team. Nephrology service will continue to follow. Thank you for the consultation. Please do not hesitate to contact us for any questions/concerns. Benjamín continue to follow along with you. Johnny Hines MD PGY-3, Internal Medicine [facility] [1] Allergies Allergen Reactions Erythromycin Other Erythromycin Base Hydromorphone Penicillins Hives Spironolactone Rash [2] Past Medical History: Diagnosis Date CHF (congestive heart failure) (CMS/HCC) Chronic kidney disease Coronary artery disease Diabetes mellitus (CMS/HCC) Hypertension [3] Past Surgical History: Procedure Laterality Date CARDIAC CATHETERIZATION CORONARY ARTERY BYPASS GRAFT KNEE ARTHROPLASTY [4] Family History Problem Relation Name Age of Onset Heart attack Mother Heart failure Mother Heart attack Father Cosigned by Jazzmine Kelsey MD at 05/03/2025 2:35 PM EDT Associated attestation - Jazzmine Kelsey MD - 05/03/2025 2:35 PM EDT I personally saw and examined the patient on the same date of service as resident/fellow Johnny Hines MD. I discussed the findings and therapeutic plan with the Johnny Hines MD. I agree with the documentation, except for any edits/updates below. Patient seen examined at bedside. Patient with history of CKD stage IV and baseline serum creatinine around 2.5, now noted to have increasing serum creatinine along with exertional dyspnea. Volume status appears optimal now. Patient had right heart catheterization done that showed pulm capital wedge pressure of 31 with PA pressure of 42. -Agree with continuing Bumex and add metolazone as needed -Start sodium bicarb tablet -Check iron panel for anemia in the setting of CKD -Close outpatient follow-up with nephrology on discharge. Continue to monitor kidney function and electrolytes. Avoid nephrotoxic medications. Jazzmine Kelsey MD Faculty, Division of Nephrology, Department of Medicine, [facility]. * Sima Bai, RD - 05/02/2025 2:34 PM EDTAssociated Order(s): IP CONSULT TO NUTRITION SERVICES Adult Nutrition Assessment: Name: Claudia Polo Date: 1950 Date of Visit: 05/02/25 Admission Dx: Acute on chronic heart failure with preserved ejection fraction (HFpEF) ([facility]) [I50.33] Reason for assessment: high risk (po intake) and MD referral (HF) Information obtained from: patient, family, and medical record Medical History[1] Current Medications: allopurinol, 100 mg, oral, Daily amLODIPine, 10 mg, oral, Daily aspirin, 81 mg, oral, q AM atorvastatin, 40 mg, oral, Nightly bumetanide, 3 mg, intravenous, BID heparin (porcine), 5,000 Units, subcutaneous, q12h PONCHO hydrALAZINE, 50 mg, oral, BID insulin lispro, 0-5 Units, subcutaneous, TID with meals And insulin lispro, 0-4 Units, subcutaneous, Nightly isosorbide mononitrate ER, 30 mg, oral, Once Daily levothyroxine, 75 mcg, oral, Daily metoprolol tartrate, 75 mg, oral, BID potassium chloride CR, 40 mEq, oral, Daily Labs: 0 Lab Value Date/Time POCGLU 158 (H) 05/02/2025 1218 BUN 60 (H) 05/02/2025545 CREATININE 2.77 (H) 05/02/2025 0546 NA 138 05/02/202546 K 3.9 05/02/2025545 PHOS 4.4 07/18/2020 0404 MG 2.1 05/02/2025 0024 HGB 9.0 (L) 05/02/202546 HGB 7.5 (L) 07/13/2020 1142 WBC 10.61 (H) 05/02/2025545 A1c 6.2% 2020 BNP 1236 Allergies: Allergies[2] Nutrition Problems: Swallowing Assessment: Swallow screen 05/01 Mouth: pt denies chewing difficulty Abdominal Assessment: Last BM 05/02 per pt I/O: Urine output: 325 mL / 24 hrs Net fluid: -635 mL Appetite: Decreased past few months Cognition: A/O x4 Feeding Skills: Independently feeds self Good access to 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 Skin Integrity: Intact Edema: BLE +1 Other Factors: 1.5 L NC History of HF Echo 10/2024: EF 55-60% 05/02/25: cath Nutrition Data/Clinical Indicators of Nutrition Status: Height: 142.2 cm (4' 8 ) Weight: 62.7 kg (138 lb 3.7 oz) BMI (Calculated): 31.01 Wt Readings from Last 10 Encounters: 05/02/25 62.7 kg (138 lb 3.7 oz) 05/01/25 58.1 kg (128 lb) 04/15/25 56.2 kg (124 lb) 04/07/25 57.6 kg (127 lb) 09/16/24 56.7 kg (125 lb) 03/29/24 56.7 kg (125 lb) 09/04/23 57.2 kg (126 lb) 08/04/23 58.5 kg (129 lb) 02/24/23 57.2 kg (126 lb) 09/12/22 55.3 kg (122 lb) IBW: 40.9 kg (estimated as pt is <60 inches) UBW: 122 lbs on home scale Weight change: Pt monitors weight daily @ home. Recent gain likely 2/2 fluid retention. Nutrition Assessment: Pt endorses having a decreased appetite for the past few months. She related this to her overall health and decreased heart function. Despite decreased appetite, she still tries to eat a few times per day. She avoids added salt and family at bedside, who do most of the shopping, endorses reading food labels. No use of ONS @ home. B: granola bar, chocolate milk Snacks: yogurt, fruit D: chicken or salmon, potato + salted butter Dietary Orders (From admission, onward) Start Ordered 05/02/25 1218 Special Kitchen Request Once Comments: [place] toast, chocolate milk and grapes 05/02/25 1237 05/02/25 1209 Regular Diet Heart Healthy/HTN, CABG,Stroke, (2gNA, low fat, low cholesterol) Diet effective now Question Answer Comment Room Service? Yes Fat restriction: Heart Healthy/HTN, CABG,Stroke, (2gNA, low fat, low cholesterol) 05/02/25 1209 05/01/25 1823 Special Kitchen Request Once Comments: Hot turkey sand which with mashed potato with apple sauce and nikhil henry, moiz food cake 05/01/25 182 Nutrition Risk: Moderate Nutrition Needs: Needs based on: ideal body weight (40.9 kg) Calorie needs: 7049-3929 kcals/day based on 25-30 kcal/kg Protein needs: 33-41 g/day based on 0.8-1 g/kg (CKD vs dec appetite) Fluid needs: 1227 ml/day based on 30 ml/kg Nutrition Diagnosis: None at this time Malnutrition Assessment: Per Registered Dietitian assessment and evaluation, patient does not currently meet criteria OR there is not enough information to support the diagnosis of malnutrition per the clinical criteria set by the Academy of Nutrition and Dietetics (AND) and the [place] Society of Enteral and Parenteral Nutrition (ASPEN). Nutrition Education: Diet literature: Heart Failure Nutrition Therapy Low Na Diet Goal <2000 mg Na/day Encouraged label reading Use unsalted condiments (butter), discussed flavor alternatives Daily wt monitoring, discussed when to notify MD of gain Smaller, more frequent intakes encouraged to combat decreased appetite Expected compliance/patient understanding: Good Teach back method: Pt + family verbalized understanding Time spent: 15 minutes Treatment Plan: Diet: cardiac Encourage intakes with all meals ONS: BGC (prefers chocolate) x1/day 8oz: 190 kcal, 16 g pro Check A1c Daily wt monitoring Goals: Adequate po intakes (kcals and protein); >75% meals Adherence/tolerance to ONS; >75% supplements Understanding of nutrition education/adherence to diet recommendations No significant unintentional wt loss To reach the Clinical Dietitian, please utilize [employer] chat Monday-Monday from 8AM-4PM or call extension [phone]. For weekends (Monday-Monday) and holidays, the Clinical Dietitian can be reached via pager [phone]) from 9AM-3PM. The Clinical Nutrition Department is unable to respond to [employer] chat messages on Sundays and s. [1] Past Medical History: Diagnosis Date CHF (congestive heart failure) (CMS/HCC) Chronic kidney disease Coronary artery disease Diabetes mellitus (CMS/HCC) Hypertension [2] Allergies Allergen Reactions Erythromycin Other Erythromycin Base Hydromorphone Penicillins Hives Spironolactone Rash * Seven Tapia MD - 05/02/2025 8:33 AM EDTAssociated Order(s): IP CONSULT TO CARDIOLOGY Images from the original note were not included. Cardiology Consult Note Reason for Consult: CHF Exacerbation HPI: Claudia Polo is a 75 y.o. female with a past medical history notable for hypertension, HFpEF, CAD s/p CABG 2020, hyperlipidemia, CKD 4, and diabetes who presents from [facility] cardiology clinic due to worsening dyspnea on exertion. She was seen in the cardiology clinic on 05/01 and was noted to have significant worsening dyspnea on exertion with desaturations on minimal exertion. She also was noted to have orthopnea, bilateral lower extremity edema and abdominal bloating. She also complains of chest pain relieved with sublingual nitroglycerin. 1 week prior she was noted to have signs of CHF exacerbation on CXR with reported dyspnea on exertion for which Bumex was increased to 2 mg twice daily. Patient continues to have worsening dyspnea with signs of fluid overload on exam (elevated JVP, bilateral lower extremity edema, etc...). Given worsening renal function and evidence of heart failure exacerbation, patient was transferred to our hospital for further evaluation and cardiology was consulted. Creatinine 2.77 (baseline around 2), BNP 1236, WBCs 10.6, hemoglobin 9 (8.5), labs otherwise unremarkable. Cardiac workup: Cardiac catheterization 07/2020 showed severe three-vessel coronary artery disease, she underwent CABG on 07/13/2020 and developed postoperative A-fib that converted medically. Echocardiogram 10/2024: LVEF 55 to 60%. Normal RV size and function. Mild biatrial dilation. Grade 2diastolic dysfunction with elevated filling pressures. Mild TR. Moderately elevated right-sided pressures with RVSP of 59 mmHg. Cardiac medications: Amlodipine 10 mg, aspirin 81 mg, atorvastatin 40 mg, Bumex 2 mg twice daily, hydralazine 50 mg 4 times daily, Imdur 30 mg, Lopressor 75 mg twice daily, midodrine 5 mg 3 times daily as needed, nitroglycerin as needed. Cardiology ROS: Review of Systems Constitutional: Positive for activity change and fatigue. Respiratory: Positive for cough and shortness of breath. Cardiovascular: Positive for chest pain and leg swelling. Past Medical History She has a past medical history of CHF (congestive heart failure) (CMS/[facility]), Chronic kidney disease,Coronary artery disease, Diabetes mellitus (CMS/[facility]), and Hypertension. Surgical History She has a past surgical history that includes Coronary artery bypass graft; Cardiac catheterization; and Knee Arthroplasty. Social History She reports that she has never smoked. She has never used smokeless tobacco. She reports that she does not currently use alcohol. She reports that she does not use drugs. Family History Family History Problem Relation Name Age of Onset Heart attack Mother Heart failure Mother Heart attack Father Allergies Erythromycin, Erythromycin base, Hydromorphone, Penicillins, and Spironolactone Medications Current Outpatient Medications Medication Instructions allopurinol (Zyloprim) 100 mg tablet TAKE 1 TABLET BY MOUTH ONCE DAILY FOR 90 DAYS amLODIPine (NORVASC) 10 mg, oral, Daily aspirin 81 mg EC tablet Take 1 tablet every day by oral route. atorvastatin (Lipitor) 40 mg tablet TAKE 1 TABLET BY MOUTH EVERYDAY AT BEDTIME bumetanide (BUMEX) 4 mg, oral, 2 times daily doxazosin (CARDURA) 6 mg, oral, 2 times daily ergocalciferol (Vitamin D-2) 1.25 MG (80839 UT) capsule 1 capsule, Weekly ferrous sulfate 325 (65 Fe) MG tablet TAKE 1 TABLET BY MOUTH EVERY OTHER DAY FOR 90 DAYS folic acid (FOLVITE) 1 mg, Daily hydrALAZINE (APRESOLINE) 50 mg, oral, 2 times daily insulin glargine (Lantus) 100 unit/mL (3 mL) pen Inject under the skin. isosorbide mononitrate ER (IMDUR) 30 mg, oral, Once Daily, Do not crush or chew. levothyroxine (Synthroid, Levoxyl) 50 mcg tablet 1 tablet, Daily metOLazone (Zaroxolyn) 2.5 mg tablet TAKE 1 TABLET BY MOUTH IF NEEDED FOR SWELLING OR WEIGHT GAIN metoprolol tartrate (LOPRESSOR) 75 mg, oral, 2 times daily RT midodrine (PROAMATINE) 5 mg, oral, As needed nitroglycerin (NITROSTAT) 0.4 mg, sublingual, Every 5 min PRN potassium chloride CR (Klor-Con M20) 20 mEq ER tablet 40 mEq, Daily Prescriptions Prior to Admission[1] Last Recorded Vitals Patient Vitals for the past 24 hrs: BP Temp Temp src Pulse Resp SpO2 Height Weight 05/02/25 0500 -- -- -- -- -- -- -- 62.7 kg (138 lb 3.7 oz) 05/02/25 0416 164/64 -- -- 73 19 97 % -- -- 05/02/25 0255 -- -- -- -- -- -- -- 62.7 kg (138 lb 3.7 oz) 05/02/25 0005 (!) 161/47 -- -- 71 20 99 % -- -- 05/01/25 2332 168/52 -- -- 72 23 97 % -- -- 05/01/25 2023 155/53 -- -- 73 20 98 % -- -- 05/01/25 1801 172/64 36 ??C (96.8 ??F) Temporal 72 20 94 % 1.422 m (4' 8 ) 58.4 kg (128 lb 12.8 oz) Physical Examination: Physical Exam Vitals reviewed. Constitutional: Appearance: Normal appearance. Cardiovascular: Rate and Rhythm: Normal rate and regular rhythm. Pulmonary: Effort: Pulmonary effort is normal. Skin: General: Skin is warm. Capillary Refill: Capillary refill takes less than 2 seconds. Neurological: General: No focal deficit present. Mental Status: She is alert. Relevant Lab Results No results found for this or any previous visit (from the past 4464 hours). No results found for: CKTOTAL , CKMB , CKMBINDEX , TROPONINI No echocardiogram results found for the past 12 months No nuclear medicine results found for the past 12 months Relevant Imaging Results XR chest lateral decubitus Narrative: [facility] Department of Radiology [address] [place] [id number] Patien t Name: CLAUDIA POLO : 1950 Sex: F Age: Race: White^White Pt. Location: Patient Status: O Ordered Date: 07/27/2020 11:25:00 AM Completed Date: 07/27/2020 11:33 AM Requesting Provider: FREEDOM RING Attending Provider: FREEDOM RING Report Copy To: Signs & Symptoms: R05 Cough I10 History: Dexter Comments: Exam: CHEST AND LATERAL CHEST AND LATERAL 07/27/2020 11:33 AM CLINICAL INDICATIONS: R05 Cough I10 TECHNOLOGIST COMMENTS: pt states short of breath, HTN, recent open heart surgery PROTOCOL: AP(PA) and Lateral views were obtained. COMPARISON: None Impression: Blunting of both costophrenic angles has developed represent small bilateral pleural effusions. No pneumothorax. No consolidative airspace disease. Cardiac silhouette size appears stable. Central vessels appear stable. Cerclage wires are unchanged. Follow-up is suggested Electronically signed: Marli Seo. Transcribed by: [email or web address], User Resident: Electronically Signed by: MARLI SEO @ 07/27/2020 01:07 PM Overview: 75-year-old female with acute on chronic HFpEF, CAD s/p CABG 2020, CKD 4, hypertension, and T2DM presenting with progressive dyspnea, orthopnea, peripheral edema, and abdominal distention consistent with decompensated heart failure in the setting of possible cardiorenal syndrome. ASSESSMENT Acute on chronic heart failure with preserved ejection fraction (NYHA III-IV) Echo 10/2024 showed LVEF 55 to 60% with grade 2 diastolic dysfunction and RVSP of 59 mmHg. BNP 1236 with exam findings of volume overload. CKD stage IV CAD s/p CABG 2020 Essential hypertension Anemia of chronic disease T2DM PLAN Continuous cardiac telemetry Agree with Bumex 3 mg twice daily UOP over past 24 hours: 300 cc // Net fluid balance: -300 cc Strict I's and O's, and daily weights Follow-up Repeat TTE Tentatively planning RHC 05/02 for further assistance with medical management Continue to optimize cardiac meds/GDMT as tolerated Continue aspirin, amlodipine, Lipitor, hydralazine, Imdur, and Lopressor Monitor & Replace electrolytes, maintain K > 4 & Mg > 2 Remainder of care as per primary team and other consulting services Cardiology team will continue to follow This note was, at least in part, completed using a voice medical detailist system. Every effort was made to ensure accuracy. However, inadvertent computerized medical detailist errors may be present. Seven Tapia MD PGY-2 Internal Medicine Cardiology Consult Service [facility] [1] Medications Prior to Admission Medication Sig Dispense Refill Last Dose/Taking allopurinol (Zyloprim) 100 mg tablet TAKE 1 [...] tablet 3 bumetanide (Bumex) 2 mg tablet Take 2 tablets (4 mg) by mouth two times daily. (Patient taking differently: Take 2 mg by mouth in the morning.) 360 tablet 3 doxazosin (Cardura) 4 mg tablet TAKE 1 AND 1/2 TABLETS BY MOUTH TWICE A DAY (Patient not taking: Reported on 05/01/2025) 270 tablet 3 ergocalciferol (Vitamin D-2) 1.25 MG (53858 UT) capsule Take 1 capsule by mouth 1 (one) time per week. ferrous sulfate 325 (65 Fe) MG tablet TAKE 1 TABLET BY MOUTH EVERY OTHER DAY FOR 90 DAYS folic acid (Folvite) 1 mg tablet Take 1 mg by mouth in the morning. hydrALAZINE (Apresoline) 50 mg tablet TAKE 1 TABLET BY MOUTH TWO TIMES DAILY. (Patient taking differently: Take 50 mg by mouth four times daily.) 180 tablet 3 insulin glargine (Lantus) 100 unit/mL (3 mL) pen Inject under the skin. (Patient taking differently: Inject under the skin if needed.) isosorbide mononitrate ER (Imdur) 30 mg 24 hr tablet Take 1 tablet (30 mg) by mouth once daily as directed. Do not crush or chew. 90 tablet 3 levothyroxine (Synthroid, Levoxyl) 50 mcg tablet Take 1 tablet by mouth in the morning. (Patient taking differently: Take 75 mcg by mouth in the morning.) metOLazone (Zaroxolyn) 2.5 mg tablet TAKE 1 TABLET BY MOUTH IF NEEDED FOR SWELLING OR WEIGHT GAIN (Patient not taking: Reported on 05/01/2025) 90 tablet 1 metoprolol tartrate (Lopressor) 50 mg tablet Take 1.5 tablets (75 mg) by mouth in the morning and at bedtime. (Patient taking differently: Take 50 mg by mouth in the morning and at bedtime.) midodrine (Proamatine) 5 mg tablet Take 1 tablet (5 mg) by mouth if needed (as needed for orthostatic hypotension). (Patient not taking: Reported on 05/01/2025) 90 tablet 3 nitroglycerin (Nitrostat) 0.[address] 1 tablet (0.4 mg) under the tongue every 5 (five) minutes if needed for chest pain. 25 tablet 3 potassium chloride CR (Klor-Con M20) 20 mEq ER tablet Take 40 mEq by mouth in the morning. Cosigned by Bran Fish MD at 05/02/2025 6:48 PM EDT Associated attestation - Bran Fish MD - 05/02/2025 6:48 PM EDT By using the attestations below, I agree that I have read and verify that the documentation has been personally reviewed by me and ensure that the documentation accurately reflects the encounter. GC: I personally saw this patient on the day of the encounter, performed the caceres portions of the service and participated in the management and treatment plan of the patient. I reviewed and confirm the documentation by the Resident Dr Seven Tapia. Please note there may be an additional personal documentation from me. Bran Fish MD documented in this encounter Nursing Notes * Trudy Collado RN - 05/04/2025 4:08 PM EST Pt discharged with all belongings, discharge paperwork, and all questions answered to pt's satisfaction. documented in this encounter Miscellaneous Notes * Care Plan - Marcos Avalos RN - 05/03/2025 9:06 PM EDT The patient is Moderately Stable - Low risk of patient condition declining or worsening The patient's goals for the shift include comfort, rest The clinical goals for the shift include VSS, safety * Significant Event - Dennise Roth RRT - 05/03/2025 2:31 PM EDT 05/03/25 1305 Home Oxygen Therapy Evaluation Home Oxygen Therapy No Pulse Oximetry on room air at Rest 92 Pulse Ox on room air while walking 89 Patient Qualification for home oxygen Does not qualify for home oxygen this visit $ Pulse Oximetry Multiple Patient does not qualify for home oxygen this visit. * Care Plan - Marcos Avalos RN - 05/02/2025 9:53 PM EDT The patient is Moderately Stable - Low risk of patient condition declining or worsening The patient's goals for the shift include comfort, rest The clinical goals for the shift include VSS * Care Plan - Jhoana Carmona RN - 05/02/2025 6:18 PM EDT The patient is Moderately Stable - Low risk of patient condition declining or worsening The patient's goals for the shift include comfort The clinical goals for the shift include stable vs Problem: Pain - Adult Goal: Verbalizes/displays adequate comfort level or baseline comfort level Outcome: Progressing Flowsheets (Taken 05/02/2025915) Verbalizes/displays adequate comfort level or baseline comfort level: Encourage patient to monitor pain and request assistance Assess pain using appropriate pain scale Administer analgesics based on type and severity of pain and evaluate response Implement non-pharmacological measures as appropriate and evaluate response Consider cultural and social influences on pain and pain management Notify Licensed Independent Practitioner if interventions unsuccessful or patient reports new pain Problem: Safety - Adult Goal: Free from fall injury Outcome: Progressing Flowsheets (Taken 05/02/2025915) Free from fall injury: Identify cognitive and physical deficits and behaviors that affect risk of falls Ledger fall precautions as indicated by assessment Educate patient/family on patient safety, including physical limitations Consider OT/PT consult to assist with strengthening/mobility Instruct patient to call for assistance with activity based on assessment Modify environment to reduce risk of injury Assess patient frequently for physical needs Problem: Discharge Planning Goal: Discharge to home or other facility with appropriate resources Outcome: Progressing Flowsheets (Taken 05/02/2025915) Discharge to home or other facility with appropriate resources: Identify barriers to discharge with patient and caregiver Identify discharge learning needs (meds, wound care, etc) Arrange for interpreters to assist at discharge as needed Refer to discharge planning if patient needs post-hospital services based on physician order or complex needs related to functional status, cognitive ability or social support system Arrange for needed discharge resources and transportation as appropriate Problem: Chronic Conditions and Co-morbidities Goal: Patient's chronic conditions and co-morbidity symptoms are monitored and maintained or improved Outcome: Progressing Flowsheets (Taken 05/02/2025915) Care Plan - Patient's Chronic Conditions and Co-Morbidity Symptoms are Monitored and Maintained or Improved: Monitor and assess patient's chronic conditions and comorbid symptoms for stability, deterioration,or improvement Collaborate with multidisciplinary team to address chronic and comorbid conditions and prevent exacerbation or deterioration Update acute care plan with appropriate goals if chronic or comorbid symptoms are exacerbated and prevent overall improvement and discharge Problem: Neurosensory - Adult Goal: Achieves stable or improved neurological status Outcome: Progressing Flowsheets (Taken 05/02/2025915) Achieves stable or improved neurological status: Assess for and report changes in neurological status Initiate measures to prevent increased intracranial pressure Maintain blood pressure and fluid volume within ordered parameters to optimize cerebral perfusion and minimize risk of hemorrhage Monitor temperature, glucose, and sodium. Initiate appropriate interventions as ordered Goal: Achieves maximal functionality and self care Outcome: Progressing Flowsheets (Taken 05/02/2025915) Achieves maximal functionality and self care: Monitor swallowing and airway patency with patient fatigue and changes in neurological status Encourage and assist patient to increase activity and self care with guidance from physical therapy/occupational therapy Encourage visually impaired, hearing impaired and aphasic patients to use assistive/communication devices Problem: Respiratory - Adult Goal: Achieves optimal ventilation and oxygenation Outcome: Progressing Flowsheets (Taken 05/02/2025915) Achieves optimal ventilation and oxygenation: Assess for changes in respiratory status Assess for changes in mentation and behavior Position to facilitate oxygenation and minimize respiratory effort Oxygen supplementation based on oxygen saturation or arterial blood gases Initiate smoking cessation protocol as indicated Encourage broncho-pulmonary hygiene including cough, deep breathe, incentive spirometry Assess the need for suctioning and aspirate as needed Assess and instruct to report shortness of breath or any respiratory difficulty Respiratory therapy support as indicated * Pre-Sedation Documentation - Tiffany Encinas MD - 05/02/2025 11:09 AM EDT Patient: Claudia Polo Procedure Information Date/Time: 05/02/25929 Procedure: Right heart cath Location: [facility] (Cath) Providers: Rickey Jackson MD Clinical information reviewed: Allergies Meds Physical Exam Airway Mallampati: II TM distance: >3 FB Neck ROM: full Cardiovascular - normal exam Dental Pulmonary - normal exam Neurological Abdominal - normal exam Anesthesia Plan ASA 3 other (Conscious sedation) Anesthetic plan and risks discussed with patient. Use of blood products discussed with patient who consented to blood products. Plan discussed with attending. Additional Equipment Requests Cosigned by Rickey Jackson MD at 05/02/2025 11:12 AM EDT Associated attestation - Rickey Jackson MD - 05/02/2025 11:12 AM EDT Rickey Jackson MD, MPH, [facility] Interventional Cardiology Pager Email: [email or web address] * Care Plan - Benja Degroot RN - 05/02/2025 1:40 AM EDT The patient is Moderately Stable - Low risk of patient condition declining or worsening The patient's goals for the shift include comfort and rest The clinical goals for the shift include stable VS * Assessment & Plan Note - Kerilne Patel CNP - 05/02/2025 12:46 AM EDT Associated Problem(s): Acute on chronic heart failure with preserved ejection fraction (HFpEF) (CMS/HCC) Start Bumex 2mg IV BID Weigh patient daily Fluid restriction Cardiology consult NPO at midnight for possible right heart cath * Assessment & Plan Note - Kerline Patel CNP - 05/02/2025 12:46 AM EDT Associated Problem(s): Hypertensive disorder Resume home medications * Assessment & Plan Note - Kerline Patel CNP - 05/02/2025 12:46 AM EDT Associated Problem(s): Stage 4 chronic kidney disease (CMS/HCC) Monitor kidney functions Avoid nephrotoxic drugs Appreciate nephrology recommendations * Assessment & Plan Note - Kerline Patel CNP - 05/02/2025 12:46 AM EDT Associated Problem(s): Type 2 diabetes mellitus (CMS/HCC) Glucose management protocol Sliding scale Hypoglycemia management documented in this encounter Plan of Treatment DateTypeDepartmentCare Team (Latest Contact Info)Vmdbqzcfzwa01/18/2025 10:00 AM [facility] [address] [phone] Emilia To CNP [address] [place] [id number] NameTypePriorityAssociated DiagnosesOrder ScheduleCBCLabRoutine Chronic diastolic heart failure (CMS/HCC) Expected: 05/11/2025 (Approximate), Expires: 05/04/2026asic metabolic panelLab Routine Chronic diastolic heart failure (CMS/HCC) Expected: 05/04/2025 (Approximate), Expires: 05/04/2026NameTypePriority Associated DiagnosesOrder ScheduleAmbulatory referral to Cardiac RehabOutpatient ReferralRoutine Acute on chronic heart failure with preserved ejection fraction (HFpEF) (CMS/HCC) Expected: 05/02/2025 (Approximate), Expires: 10/30/2025mbulatory referral to Cardiac RehabOutpatient ReferralRoutine Coronary arteriosclerosis Expected: 05/02/2025 (Approximate), Expires: 10/30/2025mbulatory referral to Primary CareOutpatient ReferralRoutine Chronic diastolic heart failure (CMS/HCC) Expected: 05/11/2025 (Approximate), Expires: 10/31/2025mbulatory referral to NephrologyOutpatient ReferralRoutine Chronic diastolic heart failure ([facility]) Expected: 05/11/2025 (Approximate), Expires: 10/31/2025mbulatory referral to CardiologyOutpatient ReferralRoutine Chronic diastolic heart failure ([facility] [place]) Expected: 05/11/2025 (Approximate), Expires: 10/31/2025documented as of this encounter Procedures Procedure NamePriorityDate/TimeAssociated DiagnosisCommentsPOCT GLUCOSE METER UNSOLICITED YRNYGDNXgykjkc53/02/2025 11:23 AM EST CBCPending Nusyfdvmg77/02/2025 8:02 AM EST BASIC METABOLIC PANELPending Figzdidhh25/02/2025 8:02 AM EST POCT GLUCOSE METER UNSOLICITED RHOTVACCcshkno88/01/2025 8:12 PM EDT POCT GLUCOSE METER UNSOLICITED QMTNSOULfelsep52/01/2025 4:41 PM EDT PROTEIN, URINE, RANDOMPending Edgggxpse24/01/2025 3:01 PM EDT CREATININE, URINE, RANDOMPending Hoimsbbhl14/01/2025 3:01 PM EDT URINALYSIS MICROSCOPICPending Fvgoedfgt09/01/2025 3:01 PM EDT URINALYSISPending Gumcgfdir41/01/2025 3:01 PM EDT HOME O2 EVAL (DESATURATION SCREEN)Zgvrphl2705/03/2025 12:19 PM EDTPOCT GLUCOSE METER UNSOLICITED GAGMESEKrghjqv08/01/2025 11:41 AM EDT POCT GLUCOSE METER UNSOLICITED BPYJENQXomomld64/01/2025 7:59 AM EDT CBCPending Axzodhkze29/01/2025 7:15 AM EDT PHOSPHORUSAdd-On05/03/2025 7:15 AM EDT PTH, INTACTAdd-On05/03/2025 7:15 AM EDT BASIC METABOLIC PANELPending Qadiuudsn73/01/2025 7:15 AM EDT POCT GLUCOSE METER UNSOLICITED ERYPJPSMjoxryx84/31/2025 8:10 PM EDT POCT GLUCOSE METER UNSOLICITED YZGJDWJEvsvbuj76/31/2025 5:37 PM EDT XR CHEST 1 TERBIpbvvcc06/31/2025 2:14 PM EDT POCT GLUCOSE METER UNSOLICITED RJMFDQLUyqryxv93/31/2025 12:18 PM EDT RIGHT HEART JMVOZopivdr36/31/2025 11:44 AM EDT Acute on chronic heart failure with preserved ejection fraction (HFpEF) ([facility]) %DCB9Burhilg17/31/2025 11:42 AM EDT ECG 12-SUAYCmzplac28/31/2025 9:14 AM EDT COMPLETE ECHO (TTE)Jtjeagd8205/02/2025 8:30 AM EDT TSH3 REFLEX TO ZR7Mrw-Lc61/31/2025 5:46 AM EDT IRON AND TIBCAdd-On05/02/2025 5:46 AM EDT RETICULOCYTE PANELAdd-On05/02/2025 5:46 AM EDT SJSKbszcux29/31/2025 5:46 AM EDT FOLATEAdd-On05/02/2025 5:46 AM EDT FERRITINAdd-On05/02/2025 5:46 AM EDT VITAMIN S72Nzq-Vs81/31/2025 5:46 AM EDT BASIC METABOLIC UGBJYQhitjeo98/31/2025 5:46 AM EDT RFHKSRN8805/02/2025 12:24 AM EDT B-TYPE NATRIURETIC ICGGQHKISWJ21/31/2025 12:24 AM EDT XIYBUAQDVXHIR47/31/2025 12:24 AM EDT BASIC METABOLIC LAHHCLKAA83/31/2025 12:24 AM EDT documented in this encounter Results * (ABNORMAL) POCT glucose meter (05/04/2025 11:23 AM EST)ComponentValueRef Range Test MethodAnalysis TimePerformed AtPathologist SignatureGlucose RRI993(H)70 - 105 mg/dL05/04/2025 11:35 AM [facility] ([facility])Comment:jarizme Specimen (Source)Anatomical Location / LateralityCollection Method / Volume Collection TimeReceived TimeBloodCapillary blood specimen / Msypfvk8205/04/2025 11:23 AM EST05/04/2025 11:35 AM EST Narrative [facility] ([facility]) - 05/04/2025 11:35 AM EST Waived Testing in the ED is performed under the ED CLIA certificate #[id number]. Authorizing ProviderResult TypeResult StatusNicchelsea SNEED BLOOD ORDERABLESFinal ResultPerforming OrganizationAddressCity/State/ZIP CodePhone Number [facility] ([facility]) [address] [place], [place] [phone] * (ABNORMAL) Basic metabolic panel (05/04/2025 8:02 AM EST)ComponentValueRef RangeTest MethodAnalysis TimePerformed AtPathologist ZhueyurxlAgmyet827922 - 145 mmol/L107/04/2024 8:41 AM [facility] ([facility])Potassium4.03.5 - 5.1 mmol/L107/04/2024 8:41 AM [facility] ([facility])Ygmzoyua88988 - 107 mmol/L107/04/2024 8:41 AM [facility] ([facility])BM46428 - 31 mmol/L 05/04/2025 8:41 AM [facility] ([facility])BUN64(H)7 - 25 mg/dL05/04/2025 8:41 AM [facility] ([facility])Creatinine2.55(H)0.60 - 1.20 mg/dL 05/04/2025 8:41 AM [facility] ([facility])Psmkvpe253(H)70 - 100 mg/dL 05/04/2025 8:41 AM [facility] ([facility])Calcium8.68.6 - 10.3 mg/dL 05/04/2025 8:41 AM [facility] ([facility])Anion Hkz519 - 20 mmol/L 05/04/2025 8:41 AM [facility] ([facility])eGFR19.2(L)>60.0 mL/min/1.73m* 8:41 AM [facility] ([facility])Comment:The [facility]???s estimated glomerular filtration rate (eGFR) will no longer include consideration of race in its calculation. The [employer]???s eGFR Task Force developed new recommendations for the estimation of the glomerular filtration rate in the [place] They recommend immediate implementation of the new equation refit without the race variable in all laboratories because the calculation does not include race. In addition to not including race in the calculation and reporting, it included diversity in its development, and has acceptable performance characteristics and potential consequences that do not disproportionately affect any one group of individuals.BUN/Creatinine Ratio25. 8:41 AM [facility] ([facility])Specimen (Source)Anatomical Location / LateralityCollection Method / VolumeCollection TimeReceived TimeBloodVenous blood specimen / Unknown Venipuncture / Frkkevb3205/04/2025 8:02 AM EST05/04/2025 8:15 AM EST Narrative Authorizing ProviderResult TypeResult StatusNicchelsea Higuera MDLAB BLOOD ORDERABLESFinal ResultPerforming OrganizationAddressCity/State/ZIP CodePhone Number [facility] ([facility]) [address] [place] [address] * (ABNORMAL) CBC (05/04/2025 8:02 AM EST)ComponentValueRef RangeTest Method Analysis TimePerformed AtPathologist SignatureAuto WBC8.264.00 - 10.60 10*3/uL 05/04/2025 8:28 AM [facility] ([facility])RBC2.89(L)3.80 - 5.00 10*6/uL 05/04/2025 8:28 AM [facility] ([facility])Hemoglobin8.6(L)12.0 - 15.0 g/dL05/04/2025 8:28 AM [facility] ([facility])Ktpgkvfflo20.0(L)36.0 - 45.0 %05/04/2025 8:28 AM [facility])MCV90.082.0 - 98.0 fL 05/04/2025 8:28 AM [facility])MCH29.827.0 - 33.0 pg 05/04/2025 8:28 AM [facility])MCHC33.132.0 - 35.0 g/dL 05/04/2025 8:28 AM [facility] ([facility])RDW15.6(H)11.5 - 15.0 % 05/04/2025 8:28 AM [facility])Kteifkakx206108 - 400 10*3/uL 05/04/2025 8:28 AM [facility] ([facility])Specimen (Source)Anatomical Location / LateralityCollection Method / VolumeCollection TimeReceived Time BloodVenous blood specimen / UnknownVenipuncture / Rpuigdo3405/04/2025 8:02 AM EST05/04/2025 8:16 AM EST Narrative Authorizing ProviderResult TypeResult StatusNicchelsea SNEED BLOOD ORDERABLESFinal ResultPerforming OrganizationAddressCity/State/ZIP CodePhone Number [facility] ([facility]) [address] [place] [address] * (ABNORMAL) POCT glucose meter (05/03/2025 8:12 PM EDT)ComponentValueRef Range Test MethodAnalysis TimePerformed AtPathologist SignatureGlucose QDY921(H)70 - 105 mg/dL05/03/2025 8:24 PM EDTUN[facility])Comment:[email or web address] Specimen (Source)Anatomical Location / LateralityCollection Method / Volume Collection TimeReceived TimeBloodCapillary blood specimen / Tcfiuxj6305/03/2025 8:12 PM EDT107/03/2024 8:24 PM EDT Narrative [facility] ([facility]) - 05/03/2025 8:24 PM EDT Waived Testing in the ED is performed under the ED CLIA certificate #[id number]. Authorizing ProviderResult TypeResult Meliton SNEED BLOOD ORDERABLESFinal ResultPerforming OrganizationAddressCity/State/ZIP CodePhone Number [facility] ([facility]) [address] [place] [address] * (ABNORMAL) POCT glucose meter (05/03/2025 4:41 PM EDT)ComponentValueRef Range Test MethodAnalysis TimePerformed AtPathologist SignatureGlucose PVL292(H)70 - 105 mg/dL05/03/2025 4:59 PM EDTUN[facility])Comment:[email or web address] Specimen (Source)Anatomical Location / LateralityCollection Method / Volume Collection TimeReceived TimeBloodCapillary blood specimen / Citinpi9405/03/2025 4:41 PM EDT107/03/2024 4:59 PM EDT Narrative [facility] ([facility]) - 05/03/2025 4:59 PM EDT Waived Testing in the ED is performed under the ED CLIA certificate #[id number]. Authorizing ProviderResult TypeResult Meliton SNEED BLOOD ORDERABLESFinal ResultPerforming OrganizationAddressCity/State/ZIP CodePhone Number [facility] ([facility]) [address] [place] [address] * (ABNORMAL) Urinalysis microscopic (05/03/2025 3:01 PM EDT)ComponentValueRef RangeTest MethodAnalysis TimePerformed AtPathologist SignatureRBC, Urine3-5(A) None Seen, 0-2 /HPF05/03/2025 3:25 PM [facility] ([facility])WBC, Urine 0-2None Seen, 0-2 /HPF05/03/2025 3:25 PM [facility] ([facility])Squamous Epithelial, UrineFewNone Seen, Occasional, Few /LPF107/03/2024 3:25 PM [facility] ([facility])Mucus, UrineOccasionalNone Seen, Occasional, Few /LPF 05/03/2025 3:25 PM [facility] ([facility])Specimen (Source)Anatomical Location / LateralityCollection Method / VolumeCollection TimeReceived Time UrineUrine specimen obtained by clean catch procedure / UnknownNon-blood Collection / Xkdveku2105/03/2025 3:01 PM EDT107/03/2024 3:10 PM EDT Narrative Authorizing ProviderResult TypeResult StatusMuhammakevon SNEED URINE ORDERABLESFinal ResultPerforming OrganizationAddressCity/State/ZIP CodePhone Number [facility] ([facility]) [address] [place] [address] * (ABNORMAL) Urinalysis (05/03/2025 3:01 PM EDT)ComponentValueRef RangeTest MethodAnalysis TimePerformed AtPathologist SignatureColor, UrineLight-Yellow Colorless, Yellow, Light-Oxoyhy5305/03/2025 3:25 PM [facility] ([facility])Clarity, QzwnkVvvzjIcldw69/01/2025 3:25 PM [facility] ([facility])pH, Urine5.05.0 - 8.0 pH05/03/2025 3:25 PM [facility] ([facility])Leukocytes, ZqvebQjjdrpyhSbuqvpwp55/01/2025 3:25 PM [facility] ([facility])Nitrite, XblwyDwfgbgeuEhvkoqbc41/01/2025 3:25 PM [facility] ([facility])Protein, Urine30(A)Negative mg/dL05/03/2025 3:25 PM [facility] ([facility])Glucose, UrineNormalNormal mg/dL05/03/2025 3:25 PM EDT [facility] ([facility])Bilirubin, VhwriCruiuikmOuwijskk02/01/2025 3:25 PM [facility] ([facility])Specific [place], Urine1.008(L)1.010 - 1.030 05/03/2025 3:25 PM [facility] ([facility])Ketones, UrineNegativeNegative mg/dL05/03/2025 3:25 PM [facility] ([facility])Blood, UrineNegative Jlpneyzy91/01/2025 3:25 PM [facility] ([facility])Urobilinogen, Urine NormalNormal mg/dL05/03/2025 3:25 PM [facility] ([facility])Specimen (Source)Anatomical Location / LateralityCollection Method / VolumeCollection TimeReceived TimeUrineUrine specimen obtained by clean catch procedure / UnknownNon-blood Collection / Storxta5105/03/2025 3:01 PM EDT107/03/2024 3:10 PM EDT Narrative Authorizing ProviderResult TypeResult StatusMumora SNEED URINE ORDERABLESFinal ResultPerforming OrganizationAddressCity/State/ZIP CodePhone Number [facility]) [address] [place], [place] [phone] * Creatinine, urine, random (05/03/2025 3:01 PM EDT)ComponentValueRef RangeTest MethodAnalysis TimePerformed AtPathologist SignatureCreatinine, Ur40.026 - 299 mg/dL05/03/2025 3:31 PM [facility] ([facility])Specimen (Source) Anatomical Location / LateralityCollection Method / VolumeCollection Time Received TimeUrineUrine specimen obtained by clean catch procedure / Unknown Non-blood Collection / Zecxxzt2205/03/2025 3:01 PM EDT107/03/2024 3:10 PM EDT Narrative Authorizing ProviderResult TypeResult StatusMumora SNEED URINE ORDERABLESFinal ResultPerforming OrganizationAddressCity/State/ZIP CodePhone Number [facility]) [address] [place] [address] * Protein, urine, random (05/03/2025 3:01 PM EDT)ComponentValueRef RangeTest MethodAnalysis TimePerformed AtPathologist SignatureProtein, Ur105.9mg/dL 05/03/2025 3:31 PM [facility] ([facility])Comment:There are no established reference values for random urine specimens.Specimen (Source) Anatomical Location / LateralityCollection Method / VolumeCollection Time Received TimeUrineUrine specimen obtained by clean catch procedure / Unknown Non-blood Collection / Lxyrkjh2905/03/2025 3:01 PM EDT107/03/2024 3:10 PM EDT Narrative Authorizing ProviderResult TypeResult StatusJazzmine SNEED URINE ORDERABLESFinal ResultPerforming OrganizationAddressCity/State/ZIP CodePhone Number [facility] ([facility]) [address] [place] [address] * (ABNORMAL) POCT glucose meter (05/03/2025 11:41 AM EDT)ComponentValueRef Range Test MethodAnalysis TimePerformed AtPathologist SignatureGlucose JGY260(H)70 - 105 mg/dL05/03/2025 12:01 PM [facility] ([facility])Comment:[email or web address] Specimen (Source)Anatomical Location / LateralityCollection Method / Volume Collection TimeReceived TimeBloodCapillary blood specimen / Evkojkb6405/03/2025 11:41 AM EDT107/03/2024 12:01 PM EDT Narrative [facility] ([facility]) - 05/03/2025 12:01 PM EDT Waived Testing in the ED is performed under the ED CLIA certificate #[id number]. Authorizing ProviderResult TypeResult StatusEh SNEED BLOOD ORDERABLESFinal ResultPerforming OrganizationAddressCity/State/ZIP CodePhone Number [facility]) [address] [place] [address] * (ABNORMAL) POCT glucose meter (05/03/2025 7:59 AM EDT)ComponentValueRef Range Test MethodAnalysis TimePerformed AtPathologist SignatureGlucose YIA832(H)70 - 105 mg/dL05/03/2025 8:12 AM [facility] ([facility])Comment:[email or web address] Specimen (Source)Anatomical Location / LateralityCollection Method / Volume Collection TimeReceived TimeBloodCapillary blood specimen / Zkbnoya7805/03/2025 7:59 AM EDT107/03/2024 8:12 AM EDT Narrative [facility] ([facility]) - 05/03/2025 8:12 AM EDT Waived Testing in the ED is performed under the ED CLIA certificate #[id number]. Authorizing ProviderResult TypeResult StatusEh Higuera MDSA[facility] BLOOD ORDERABLESFinal ResultPerforming OrganizationAddressCity/State/ZIP CodePhone Number [facility]) [address] [place] [address] * (ABNORMAL) PTH, intact (05/03/2025 7:15 AM EDT)ComponentValueRef RangeTest MethodAnalysis TimePerformed AtPathologist SaopjbxpoVIU762(H)12 - 88 pg/mL 05/03/2025 1:53 PM [facility] ([facility])Specimen (Source)Anatomical Location / LateralityCollection Method / VolumeCollection TimeReceived Time BloodVenous blood specimen / UnknownVenipuncture / Ogeazql0405/03/2025 7:15 AM EDT107/03/2024 7:40 AM EDT Narrative Authorizing ProviderResult TypeResult StatusJazzmine SNEED BLOOD ORDERABLESFinal ResultPerforming OrganizationAddressCity/State/ZIP CodePhone Number [facility] ([facility] [place]) [address] [place] [address] * Phosphorus (05/03/2025 7:15 AM EDT)ComponentValueRef RangeTest MethodAnalysis TimePerformed AtPathologist SignaturePhosphorus4.22.5 - 5.0 mg/dL05/03/2025 1:33 PM [facility])Specimen (Source)Anatomical Location / LateralityCollection Method / VolumeCollection TimeReceived TimeBloodVenous blood specimen / UnknownVenipuncture / Cehgepl3805/03/2025 7:15 AM EDT107/03/2024 7:40 AM EDT Narrative Authorizing ProviderResult TypeResult StatusMuhammad Royer SNEED BLOOD ORDERABLESFinal ResultPerforming OrganizationAddressCity/State/ZIP CodePhone Number [facility] ([facility] [place]) [address] [place] [address] * (ABNORMAL) Basic metabolic panel (05/03/2025 7:15 AM EDT)ComponentValueRef RangeTest MethodAnalysis TimePerformed AtPathologist IdfiehzadMdbbgc800969 - 145 mmol/L107/03/2024 8:05 AM [facility] ([facility] [place])Potassium4.03.5 - 5.1 mmol/L107/03/2024 8:05 AM [facility] ([facility])Yqrecafv899(H)98 - 107 mmol/L107/03/2024 8:05 AM [facility] ([facility])CO220(L)21 - 31 mmol/L107/03/2024 8:05 AM [facility] ([facility])BUN61(H)7 - 25 mg/dL 05/03/2025 8:05 AM [facility] ([facility])Creatinine2.76(H)0.60 - 1.20 mg/dL05/03/2025 8:05 AM [facility] ([facility] [place])Jzcpwas291(H)70 - 100 mg/dL05/03/2025 8:05 AM [facility] ([facility])Calcium8.68.6 - 10.3 mg/dL05/03/2025 8:05 AM [facility] ([facility] [place])Anion Vxt334 - 20 mmol/L 05/03/2025 8:05 AM [facility] ([facility])eGFR17.5(L)>60.0 mL/min/1.73m* 8:05 AM [facility] ([facility] [place])Comment:The [facility]???s estimated glomerular filtration rate (eGFR) will no longer include consideration of race in its calculation. The National Kidney Foundation???s eGFR Task Force developed new recommendations for the estimation of the glomerular filtration rate in the [place] They recommend immediate implementation of the new equation refit without the race variable in all laboratories because the calculation does not include race. In addition to not including race in the calculation and reporting, it included diversity in its development, and has acceptable performance characteristics and potential consequences that do not disproportionately affect any one group of individuals.BUN/Creatinine Ratio22. 8:05 AM [facility] ([facility] [place])Specimen (Source)Anatomical Location / LateralityCollection Method / VolumeCollection TimeReceived TimeBloodVenous blood specimen / Unknown Venipuncture / Huupeny2505/03/2025 7:15 AM EDT107/03/2024 7:40 AM EDT Narrative Authorizing ProviderResult TypeResult StatusNicchelsea Higuera MDLAB BLOOD ORDERABLESFinal ResultPerforming OrganizationAddressCity/State/ZIP CodePhone Number [facility] ([facility]) [address] [place] [address] * (ABNORMAL) CBC (05/03/2025 7:15 AM EDT)ComponentValueRef RangeTest Method Analysis TimePerformed AtPathologist SignatureAuto WBC9.334.00 - 10.60 10*3/uL 05/03/2025 7:49 AM [facility] ([facility] [place])RBC2.96(L)3.80 - 5.00 10*6/uL 05/03/2025 7:49 AM [facility] ([facility])Hemoglobin8.8(L)12.0 - 15.0 g/dL05/03/2025 7:49 AM [facility] ([facility] [place])Bzqcqgmayc99.5(L)36.0 - 45.0 %05/03/2025 7:49 AM [facility] ([facility] [place])MCV89.582.0 - 98.0 fL 05/03/2025 7:49 AM [facility] ([facility] [place])MCH29.727.0 - 33.0 pg 05/03/2025 7:49 AM [facility] ([facility] [place])MCHC33.232.0 - 35.0 g/dL 05/03/2025 7:49 AM [facility] ([facility] [place])RDW15.5(H)11.5 - 15.0 % 05/03/2025 7:49 AM [facility] ([facility] [place])Fujqpaxbm656055 - 400 10*3/uL 05/03/2025 7:49 AM [facility] ([facility] [place])Specimen (Source)Anatomical Location / LateralityCollection Method / VolumeCollection TimeReceived Time BloodVenous blood specimen / UnknownVenipuncture / Fihtoid0705/03/2025 7:15 AM EDT107/03/2024 7:41 AM EDT Narrative Authorizing ProviderResult TypeResult StatusEh Higuera MDSA[facility] BLOOD ORDERABLESFinal ResultPerforming OrganizationAddressCity/State/ZIP CodePhone Number [facility] ([facility] [place]) [address] [place] [address] * (ABNORMAL) POCT glucose meter (05/02/2025 8:10 PM EDT)ComponentValueRef Range Test MethodAnalysis TimePerformed AtPathologist SignatureGlucose EGC691(H)70 - 105 mg/dL05/02/2025 8:35 PM [facility] ([facility] [place])Comment:dchilds2 Specimen (Source)Anatomical Location / LateralityCollection Method / Volume Collection TimeReceived TimeBloodCapillary blood specimen / Mckhjjf9705/02/2025 8:10 PM EDT1 8:35 PM EDT Narrative [facility] ([facility]) - 05/02/2025 8:35 PM EDT Waived Testing in the ED is performed under the ED CLIA certificate #[id number]. Authorizing ProviderResult TypeResult StatusEh Higuera MDSA[facility] BLOOD ORDERABLESFinal ResultPerforming OrganizationAddressCity/State/ZIP CodePhone Number [facility] ([facility]) [address] [place], [place] [id number] * (ABNORMAL) POCT glucose meter (05/02/2025 5:37 PM EDT)ComponentValueRef Range Test MethodAnalysis TimePerformed AtPathologist SignatureGlucose ZRP913(H)70 - 105 mg/dL05/02/2025 5:49 PM [facility] ([facility] [place])Comment:asavill Specimen (Source)Anatomical Location / LateralityCollection Method / Volume Collection TimeReceived TimeBloodCapillary blood specimen / Syrtswm6105/02/2025 5:37 PM EDT1 5:49 PM EDT Narrative [facility] ([place]) - 05/02/2025 5:49 PM EDT Waived Testing in the ED is performed under the ED CLIA certificate #[id number]. Authorizing ProviderResult TypeResult Meliton SNEED BLOOD ORDERABLESFinal ResultPerforming OrganizationAddressCity/State/ZIP CodePhone Number [facility] ([place]) [address] [place] [address] * XR chest 1 view (05/02/2025 2:14 PM EDT)Anatomical RegionLateralityModality ChestComputed RadiographySpecimen (Source)Anatomical Location / Laterality Collection Method / VolumeCollection TimeReceived Time05/02/2025 2:19 PM EDT Impressions 05/02/2025 2:20 PM EDT * Mild pulmonary edema. Electronically signed: Julio Andrew. Narrative 05/02/2025 2:20 PM EDT HISTORY: Shortness of breath COMPARISON: 07/27/2020 FINDINGS: Portable AP upright view of the chest was performed. 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 Heart size is mildly enlarged but stable. Increased prominence of interstitial markings suggestive of pulmonary edema. Atelectasis or scarring in the left midlung. No significant pleural effusion or pneumothorax. Surgical clips overlie the right upper quadrant. 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 Heart size ismildly enlarged but stable. Increased prominence of interstitial markingssuggestive of pulmonary edema. Atelectasis or scarring in the left midlung. Nosignificant pleural effusion or pneumothorax. Surgical clips overlie the right upper quadrant. IMPRESSION: *Mild pulmonary edema. Electronically signed: Julio Andrew. Authorizing ProviderResult TypeResult Meliton JOSHUAG XR PROCEDURESFinal Result * (ABNORMAL) POCT glucose meter (05/02/2025 12:18 PM EDT)ComponentValueRef Range Test MethodAnalysis TimePerformed AtPathologist SignatureGlucose OUX485(H)70 - 105 mg/dL05/02/2025 12:29 PM [facility]TUN[facility] ([place])Comment:isegura2 Specimen (Source)Anatomical Location / LateralityCollection Method / Volume Collection TimeReceived TimeBloodCapillary blood specimen / Sqdhoah7105/02/2025 12:18 PM EDT1 12:29 PM EDT Narrative [facility] ([place]) - 05/02/2025 12:29 PM EDT Waived Testing in the ED is performed under the ED CLIA certificate #[id number]. Authorizing ProviderResult TypeResult StatusEh Higuera MDLAB BLOOD ORDERABLESFinal ResultPerforming OrganizationAddressCity/State/ZIP CodePhone Number [facility] ([place]) [address] [place] [address] * RIGHT HEART CATH (05/02/2025 11:44 AM EDT)Anatomical RegionLateralityModality OtherSpecimen (Source)Anatomical Location / LateralityCollection Method / VolumeCollection TimeReceived Time Narrative 05/02/2025 11:59 AM EDT Cardiovascular Laboratory Report FINAL IMPRESSIONS: ?? Moderately elevated right-sided heart pressures and severely elevated pulmonary capillary wedge pressure consistent with biventricular congestive heart failure Normal transpulmonary gradient along with the elevated wedge consistent with postcapillary pulmonary venous hypertension Giant V waves on wedge pressure tracing suggestive of significant diastolic dysfunction and/or mitral regurgitation Severe systemic hypertension Normal cardiac output/cardiac index RECOMMENDATIONS: ?? Uptitrate IV diuresis, monitor strict inputs and outputs and daily weights Aggressive cardiovascular risk factor modification A complete echocardiogram to evaluate ejection fraction, wall motion abnormalities, and valvular function Optimal medical therapy for heart failure with preserved ejection fraction should include an SGLT2 inhibitor and spironolactone if feasible from a renal standpoint Further recommendations deferred to the inpatient services PROCEDURES: ??Ultrasound-guided access to the right internal jugular vein, right heart catheterization METHODS: After risks, benefits, and alternatives were explained, written informed consent was obtained. ??The patient was prepped and draped in usual sterile fashion over the right neck. Using 1% lidocaine solution, local infiltration anesthesia was achieved. ?? Using a modified Seldinger technique, a micropuncture kit, and under ultrasound guidance, access to the right internal jugular vein was obtained. ??This was exchanged out for a 6 [place] 11 cm sheath. Right heart catheterization was performed using a Dumont catheter via the venous sheath. ??Pressures were measured in the right atrium, right ventricle, pulmonary artery, and pulmonary capillary wedge positions. ?? Oxygen saturations were obtained and cardiac output/cardiac index was calculated using the modified Macarena principle. ??The Dumont catheter was removed. After reviewing the hemodynamic data, it was elected to conclude the procedure. ??All catheters removed. ??The venous sheath was removed with application of manual pressure to achieve optimal hemostasis. Overall the patient tolerated the procedure well. ??There were no overt complications. ??He was to be transferred to the holding area in stable condition. FINDINGS: ?? Hemodynamics: RA 16 RV ??56/9, 15 PA ??56/27 [42] PCWP 31 TPG ??11 AO ??161/58 [98] Cardiac output /cardiac index 5.00/3.29 AO sat /PA sat 95%/64% INDICATIONS: Acute on chronic heart failure with preserved ejection fraction Authorizing ProviderResult TypeResult StatusGeorge Polina [facility] CARDIAC CATH PROCEDURESFinal Result * (ABNORMAL) %HbO2 (05/02/2025 11:42 AM EDT)ComponentValueRef RangeTest Method Analysis TimePerformed AtPathologist KakiojjdwC9Zl%64.1(L)90.0 - 95.0 % 05/02/2025 11:42 AM EDTUNM [facility] ([place])Specimen (Source)Anatomical Location / LateralityCollection Method / VolumeCollection TimeReceived Time BloodVenous blood specimen / Couhpbc8305/02/2025 11:42 AM EDT1 11:42 AM EDT Narrative Authorizing ProviderResult TypeResult StatusEh SNEED POINT OF CARE TEST DOCKED DEVICE UNSOLICITED RESULTSFinal ResultPerforming Organization AddressCity/State/ZIP CodePhone Number [facility] ([place]) [address] [place] [address] * ECG 12 lead (05/02/2025 9:14 AM EDT)ComponentValueRef RangeTest MethodAnalysis TimePerformed AtPathologist SignatureVentricular Bvxb74XXWRY MUSEAtrial Rate 74BPMGE MUSEPR Amxbjbmr242hcQX MUSEQRS NXZMSIVY86lrGS MUSEQT Zgoisogq213gpIT MUSEQTC CALCULATION(BAZETT)455msGE MUSEP Emkm25qogzjltLB MUSER-Axal58smsxjvaLA MUSET Wave Zqja177fpdichbYC MUSESpecimen (Source)Anatomical Location / LateralityCollection Method / VolumeCollection TimeReceived Time05/02/2025 9:12 AM EDT1 4:37 PM EDT Impressions GE MUSE - 05/02/2025 4:37 PM EDT Normal sinus rhythm Abnormal QRS-T angle, consider primary T wave abnormality Abnormal ECG When compared with ECG of 14-JUL-2020 06:44, ST no longer elevated in Lateral Nonspecific T wave abnormality now evident in Lateral Confirmed by Chela CARRERO SAMER J. ([id number]) on 05/02/2025 4:37:20 PM Narrative Procedure Note Luis Carrero MD - 05/02/2025 IMPRESSION: Normal sinus rhythm Abnormal QRS-T angle, consider primary T wave abnormality Abnormal ECG When compared with ECG of 14-JUL-2020 06:44, ST no longer elevated in Lateral Nonspecific T wave abnormality now evident in Lateral Confirmed by Chela CARRERO SAMER J. (57) on 05/02/2025 4:37:20 PM Authorizing ProviderResult TypeResult StatusEh Higuera MDECRafita ORDERABLES Final ResultPerforming OrganizationAddressCity/State/ZIP CodePhone Number [facility] * COMPLETE ECHO (TTE) (05/02/2025 8:30 AM EDT)Anatomical RegionLaterality ModalityOtherSpecimen (Source)Anatomical Location / LateralityCollection Method / VolumeCollection TimeReceived Time05/02/2025 7:57 AM EDT Narrative 05/02/2025 12:21 PM EDT 1 1 [place] [facility] Heart Station [address] [place] [address] [phone] (fax) Echocardiogram-[facility] Name: CLAUDIA POLO Study Date: 05/02/2025 07:57 AM B/P: 164 mmHg/64 mmHg HR: 72 bpm Date of : 1950 Location: [facility] Height: 56 in. Age: 75 year(s) Patient Room: 3186 Weight: 138 lb. Gender: Female Patient Status: InPt BSA: 1.52 m2 Indication: CABG, Congestive Heart Failure, Hypertension Examination: Echocardiogram (Complete) Image Quality: Good Patient Consent: Procedure explained to patient Conclusions Left Ventricle: The left ventricle is normal size. Global left ventricular systolic function is normal. The calculated Biplane EF is 63 %. Left ventricular wall thickness is normal. No regional wall motion abnormality. Unable to assess diastolic dysfunction. Right Ventricle: The right ventricle is normal in size. Mildly reduced right ventricular systolic function. Doppler studies suggest severely elevated right sided pressures. Left Atrium: The left atrium is normal in size. Mitral Valve: Mild mitral regurgitation. Mild mitral valve stenosis. There is moderate mitral annular calcification. Tricuspid Valve: Moderate tricuspid regurgitation. Measurements Left Ventricle Label Value Normal Value LVOTd 1.7 cm (18cm - 20cm) LVOT VTI 30.7 cm (18cm - 22cm) LVOT PGmax 6 mmHg LVDd, 2D 4.71 cm (3.9cm - 5.3cm) LVDs, 2D 3.08 cm (2.1cm - 4cm) IVSd, 2D 0.86 cm (0.6cm - 1.1cm) LVPWd, 2D 1.11 cm (0.6cm - 0.9cm) LVEF, BP 63 % (55% - 65%) LV Mass, 2D ASE 161.67 g LV Mass Index, 2D ASE 106.4 g/m?? (44g/m?? - 88.4g/m??) RWT, MM 0.47 (0 - 0.42) LVSVI, 2D 43.4 ml/m2 LVOT PGmean 3 mmHg LVSV_LVOT 70 ml Right Ventricle Label Value Normal Value RVDd, 2D 3.66 cm (1.9cm - 3.8cm) TAPSE 1.5 cm Left Atrium Label Value Normal Value LA Volume, BP 51 ml (22ml - 52ml) LADs, 2D 3.3 cm (2.7cm - 3.8cm) LAESV index, BP 33.6 ml/m?? Right Atrium Label Value Normal Value RA Area 15.7 cm?? Aortic Valve Label Value Normal Value AV DVI 0.66 AV VTI 44.8 cm Mitral Valve Label Value Normal Value MV E Vmax 1.87 m/s MV A Vmax 1.34 m/s MV E/A 1.4 MV E/E' lateral 26.9 MV E' lateral 0.07 m/s Tricuspid Valve Label Value Normal Value RA Pressure 8 mmHg RVSP 72 mmHg Aorta Label Value Normal Value AoRoot, 2D 2.7 cm (1.4cm - 3.8cm) Great Vessels Label Value Normal Value IVC 2 cm (1.2cm - 2.3cm) Valvular Assessment LVOT 0.7 - 1.1 m/sec Aortic Valve 1.0 - 1.7 m/sec Mitral Valve 0.6 - 1.3 m/sec Tricuspid Valve 0.3 - 0.7 m/sec Pulmonic Valve 0.6 - 0.9 m/sec Regurgitation No Mild Moderate No Stenosis No Mild No No Max Velocity 1.23 m/sec 1.87 m/s 1.87 m/sec Max Gradient 14.00 mmHg 13.00 mmHg Mean Gradient 8.00 mmHg 6.00 mmHg Valve Area 1.5 cm?? 2.3 cm?? Findings Left Ventricle: The left ventricle is normal size. Global left ventricular systolic function is normal. The calculated Biplane EF is 63 %. Left ventricular wall thickness is normal. No regional wall motion abnormality. Unable to assess diastolic dysfunction. Right Ventricle: The right ventricle is normal in size. Mildly reduced right ventricular systolic function. Doppler studies suggest severely elevated right sided pressures. Left Atrium: The left atrium is normal in size. Right Atrium: The right atrium is normal in size. Mitral Valve: Mild mitral regurgitation. Mild mitral valve stenosis. There is moderate mitral annular calcification. Mitral Valve Measurements MV Vmax: 1.80 m/s. MV Vmean: 1.19 m/s. MV PGmax: 13.00 mmHg. MV PGmean: 6.00 mmHg. Aortic Valve: The aortic valve is normal. No aortic valve regurgitation. No aortic valve stenosis. The aortic valve is trileaflet. Tricuspid Valve: The tricuspid valve leaflets are thickened. Moderate tricuspid regurgitation. No tricuspid valve stenosis. Pulmonic Valve: Normal pulmonary valve. No pulmonary regurgitation. No pulmonic valve stenosis. Aorta: The aortic root exhibits normal size. Great Vessels: IVC: The IVC is normal in size. Respiratory inspiration less than 50%. Pericardium: No pericardial effusion. Procedure Staff Reading Group: [facility] Referring Physician: JOHN PERDOMO ??Audio Video Mechanic: HALLE Jacob Ordering Physician: EH HIGUERA ?? Procedure Note Arturo Baker MD - 05/02/2025 1 1 [place] [facility] Heart Station [address] [place], [place] [phone] (fax) Echocardiogram-[facility] Name: CLAUDIA POLO Study Date: 05/02/2025 07:57 AM B/P: 164 mmHg/64 mmHg HR: 72 bpm Date of : 1950 Location: [facility] Height: 56 in. Age: 75 year(s) Patient Room: 3186 Weight: 138 lb. Gender: Female Patient Status: InPt BSA: 1.52 m2 Indication: CABG, Congestive Heart Failure, Hypertension Examination: Echocardiogram (Complete) Image Quality: Good Patient Consent: Procedure explained to patient Conclusions Left Ventricle: The left ventricle is normal size. Global left ventricular systolic function is normal. The calculated Biplane EF is 63 %. Left ventricular wall thickness is normal. No regional wall motion abnormality. Unable to assess diastolic dysfunction. Right Ventricle: The right ventricle is normal in size. Mildly reduced right ventricular systolic function. Doppler studies suggest severely elevated right sided pressures. Left Atrium: The left atrium is normal in size. Mitral Valve: Mild mitral regurgitation. Mild mitral valve stenosis. There is moderate mitral annular calcification. Tricuspid Valve: Moderate tricuspid regurgitation. Measurements Left Ventricle Label Value Normal Value LVOTd 1.7 cm (18cm - 20cm) LVOT VTI 30.7 cm (18cm - 22cm) LVOT PGmax 6 mmHg LVDd, 2D 4.71 cm (3.9cm - 5.3cm) LVDs, 2D 3.08 cm (2.1cm - 4cm) IVSd, 2D 0.86 cm (0.6cm - 1.1cm) LVPWd, 2D 1.11 cm (0.6cm - 0.9cm) LVEF, BP 63 % (55% - 65%) LV Mass, 2D ASE 161.67 g LV Mass Index, 2D ASE 106.4 g/m?? (44g/m?? - 88.4g/m??) RWT, MM 0.47 (0 - 0.42) LVSVI, 2D 43.4 ml/m2 LVOT PGmean 3 mmHg LVSV_LVOT 70 ml Right Ventricle Label Value Normal Value RVDd, 2D 3.66 cm (1.9cm - 3.8cm) TAPSE 1.5 cm Left Atrium Label Value Normal Value LA Volume, BP 51 ml (22ml - 52ml) LADs, 2D 3.3 cm (2.7cm - 3.8cm) LAESV index, BP 33.6 ml/m?? Right Atrium Label Value Normal Value RA Area 15.7 cm?? Aortic Valve Label Value Normal Value AV DVI 0.66 AV VTI 44.8 cm Mitral Valve Label Value Normal Value MV E Vmax 1.87 m/s MV A Vmax 1.34 m/s MV E/A 1.4 MV E/E' lateral 26.9 MV E' lateral 0.07 m/s Tricuspid Valve Label Value Normal Value RA Pressure 8 mmHg RVSP 72 mmHg Aorta Label Value Normal Value AoRoot, 2D 2.7 cm (1.4cm - 3.8cm) Great Vessels Label Value Normal Value IVC 2 cm (1.2cm - 2.3cm) Valvular Assessment LVOT 0.7 - 1.1 m/sec Aortic Valve 1.0 - 1.7 m/sec Mitral Valve 0.6 - 1.3 m/sec Tricuspid Valve 0.3 - 0.7 m/sec Pulmonic Valve 0.6 - 0.9 m/sec Regurgitation No Mild Moderate No Stenosis No Mild No No Max Velocity 1.23 m/sec 1.87 m/s 1.87 m/sec Max Gradient 14.00 mmHg 13.00 mmHg Mean Gradient 8.00 mmHg 6.00 mmHg Valve Area 1.5 cm?? 2.3 cm?? Findings Left Ventricle: The left ventricle is normal size. Global left ventricular systolic function is normal. The calculated Biplane EF is 63 %. Left ventricular wall thickness is normal. No regional wall motion abnormality. Unable to assess diastolic dysfunction. Right Ventricle: The right ventricle is normal in size. Mildly reduced right ventricular systolic function. Doppler studies suggest severely elevated right sided pressures. Left Atrium: The left atrium is normal in size. Right Atrium: The right atrium is normal in size. Mitral Valve: Mild mitral regurgitation. Mild mitral valve stenosis. There is moderate mitral annular calcification. Mitral Valve Measurements MV Vmax: 1.80 m/s. MV Vmean: 1.19 m/s. MV PGmax: 13.00 mmHg. MV PGmean: 6.00 mmHg. Aortic Valve: The aortic valve is normal. No aortic valve regurgitation. No aortic valve stenosis. The aortic valve is trileaflet. Tricuspid Valve: The tricuspid valve leaflets are thickened. Moderate tricuspid regurgitation. No tricuspid valve stenosis. Pulmonic Valve: Normal pulmonary valve. No pulmonary regurgitation. No pulmonic valve stenosis. Aorta: The aortic root exhibits normal size. Great Vessels: IVC: The IVC is normal in size. Respiratory inspiration less than 50%. Pericardium: No pericardial effusion. Procedure Staff Reading Group: [facility] Referring Physician: JOHN PERDOMO Audio Video Mechanic: HALLE Jacob Ordering Physician: EH HIGUERA Authorizing ProviderResult TypeResult StatusEh Higuera [facility] ECHO PROCEDURESFinal Result * (ABNORMAL) Reticulocyte panel (05/02/2025 5:46 AM EDT)ComponentValueRef Range Test MethodAnalysis TimePerformed AtPathologist SignatureRetic Ct Abs0.1054(H) 0.0250 - 0.1000 10*6/uL05/02/2025 6:17 PM [facility] ([facility] [place])Retic Ct Pct3.50(H)0.50 - 1.80 %05/02/2025 6:17 PM [facility] ([facility] [place]) Immature Reticulocyte Fraction %22.4(H)2 - 16 %05/02/2025 6:17 PM [facility] ([facility] [place])Reticulocyte Wxorxvcdlo62.928.0 - 36.0 pg05/02/2025 6:17 PM [facility] ([facility] [place])Specimen (Source)Anatomical Location / LateralityCollection Method / VolumeCollection TimeReceived TimeBloodVenous blood specimen / UnknownVenipuncture / Gkkkrvx4005/02/2025 5:46 AM EDT1 6:09 AM EDT Narrative Authorizing ProviderResult TypeResult StatusEh SNEED BLOOD ORDERABLESFinal ResultPerforming OrganizationAddressCity/State/ZIP CodePhone Number [facility] ([facility] [place]) [address] [place] [address] * (ABNORMAL) Iron and TIBC (05/02/2025 5:46 AM EDT)ComponentValueRef RangeTest MethodAnalysis TimePerformed AtPathologist LwzmjmpucYyvp2229 - 212 ug/dL 05/02/2025 6:25 PM [facility] ([facility] [place])JSCB804(L)250 - 450 ug/dL 05/02/2025 6:25 PM [facility] ([facility] [place])Iron Sakprgpzrw4514 - 50 % 05/02/2025 6:25 PM [facility] ([facility] [place])VLHK144.0155.0 - 355.0 ug/dL 05/02/2025 6:25 PM [facility] ([facility] [place])Specimen (Source)Anatomical Location / LateralityCollection Method / VolumeCollection TimeReceived Time BloodVenous blood specimen / UnknownVenipuncture / Dqiixmq8205/02/2025 5:46 AM EDT1 6:07 AM EDT Narrative Authorizing ProviderResult TypeResult StatusEh SNEED BLOOD ORDERABLESFinal ResultPerforming OrganizationAddressCity/State/ZIP CodePhone Number [facility] ([facility] [place]) [address] [place], [place] [id number] * Ferritin (05/02/2025 5:46 AM EDT)ComponentValueRef RangeTest MethodAnalysis TimePerformed AtPathologist AzxpqsejmEchrmztu615.011.0 - 307.0 ng/mL05/02/2025 6:48 PM [facility] ([facility] [place])Specimen (Source)Anatomical Location / LateralityCollection Method / VolumeCollection TimeReceived TimeBloodVenous blood specimen / UnknownVenipuncture / Rjjdrtt1505/02/2025 5:46 AM EDT1 6:07 AM EDT Narrative Authorizing ProviderResult TypeResult StatusEh SNEED BLOOD ORDERABLESFinal ResultPerforming OrganizationAddressCity/State/ZIP CodePhone Number [facility] ([facility] [place]) [address] [place] [address] * Vitamin B12 (05/02/2025 5:46 AM EDT)ComponentValueRef RangeTest MethodAnalysis TimePerformed AtPathologist SignatureVitamin [id number] - 914 pg/mL05/02/2025 6:48 PM [facility] ([facility] [place])Comment: REFERENCE RANGES: 180-914 pg/mL ??Normal 145-179 pg/mL ??Indeterminate <145 pg/mL Deficient Specimen (Source)Anatomical Location / LateralityCollection Method / Volume Collection TimeReceived TimeBloodVenous blood specimen / UnknownVenipuncture / Lygklgn3605/02/2025 5:46 AM EDT1 6:07 AM EDT Narrative Authorizing ProviderResult TypeResult Meliton SNEED BLOOD ORDERABLESFinal ResultPerforming OrganizationAddressCity/State/ZIP CodePhone Number [facility]) [address] [place] [address] * Folate (05/02/2025 5:46 AM EDT)ComponentValueRef RangeTest MethodAnalysis Time Performed AtPathologist IsdmqtmnuUujdlk32.266.6 - 1,000 ng/mL05/02/2025 6:48 PM [facility])Specimen (Source)Anatomical Location / LateralityCollection Method / VolumeCollection TimeReceived TimeBloodVenous blood specimen / UnknownVenipuncture / Pflewds3105/02/2025 5:46 AM EDT1 6:07 AM EDT Narrative Authorizing ProviderResult TypeResult StatusEh SNEED BLOOD ORDERABLESFinal ResultPerforming OrganizationAddressCity/State/ZIP CodePhone Number [facility] ([facility] [place]) [address] [place] [address] * TSH3 Reflex to FT4 (05/02/2025 5:46 AM EDT)ComponentValueRef RangeTest Method Analysis TimePerformed AtPathologist SignatureTSH4.540.34 - 5.60 mIU/L 05/02/2025 2:16 PM [facility] ([facility] [place])Specimen (Source)Anatomical Location / LateralityCollection Method / VolumeCollection TimeReceived Time BloodVenous blood specimen / UnknownVenipuncture / Izbpaol3005/02/2025 5:46 AM EDT1 6:07 AM EDT Narrative Authorizing ProviderResult TypeResult StatusEh SNEED BLOOD ORDERABLESFinal ResultPerforming OrganizationAddressCity/State/ZIP CodePhone Number [facility] ([facility] [place]) [address] [place] [address] * (ABNORMAL) CBC (05/02/2025 5:46 AM EDT)ComponentValueRef RangeTest Method Analysis TimePerformed AtPathologist SignatureAuto WBC10.61(H)4.00 - 10.60 10*3/uL05/02/2025 6:52 AM [facility] ([facility] [place])RBC3.04(L)3.80 - 5.00 10*6/uL05/02/2025 6:52 AM [facility] ([facility] [place])Hemoglobin9.0(L)12.0 - 15.0 g/dL05/02/2025 6:52 AM [facility] ([facility] [place])Aevqxvnbwp43.9(L)36.0 - 45.0 %05/02/2025 6:52 AM [facility] ([facility] [place])MCV88.582.0 - 98.0 fL 05/02/2025 6:52 AM [facility] ([facility] [place])MCH29.627.0 - 33.0 pg 05/02/2025 6:52 AM [facility] ([facility] [place])MCHC33.532.0 - 35.0 g/dL 05/02/2025 6:52 AM [facility] ([facility] [place])RDW15.3(H)11.5 - 15.0 % 05/02/2025 6:52 AM [facility] ([facility] [place])Nfzydfuoc111123 - 400 10*3/uL 05/02/2025 6:52 AM [facility] ([facility] [place])Specimen (Source)Anatomical Location / LateralityCollection Method / VolumeCollection TimeReceived Time BloodVenous blood specimen / UnknownVenipuncture / Elpoqiz4705/02/2025 5:46 AM EDT1 6:09 AM EDT Narrative Authorizing ProviderResult TypeResult StatusOsayovani Patel [facility] BLOOD ORDERABLESFinal ResultPerforming OrganizationAddressCity/State/ZIP CodePhone Number [facility] ([facility] [place]) [address] [place] [address] * (ABNORMAL) Basic metabolic panel (05/02/2025 5:46 AM EDT)ComponentValueRef RangeTest MethodAnalysis TimePerformed AtPathologist EciysaqzmWuwoyu767930 - 145 mmol/L1 6:30 AM [facility] ([facility] [place])Potassium3.93.5 - 5.1 mmol/L1 6:30 AM [facility] ([facility] [place])Heeghehm670(H)98 - 107 mmol/L1 6:30 AM [facility] ([facility] [place])SY41093 - 31 mmol/L 05/02/2025 6:30 AM [facility] ([facility] [place])BUN60(H)7 - 25 mg/dL05/02/2025 6:30 AM [facility] ([facility] [place])Creatinine2.77(H)0.60 - 1.20 mg/dL 05/02/2025 6:30 AM [facility] ([facility] [place])Iltuqgi669(H)70 - 100 mg/dL 05/02/2025 6:30 AM [facility] ([facility] [place])Calcium8.68.6 - 10.3 mg/dL 05/02/2025 6:30 AM [facility] ([facility] [place])Anion Kkd337 - 20 mmol/L 05/02/2025 6:30 AM [facility] ([facility] [place])eGFR17.4(L)>60.0 mL/min/1.73m* 6:30 AM [facility] ([facility] [place])Comment:The [facility]???s estimated glomerular filtration rate (eGFR) will no longer include consideration of race in its calculation. The National [employer]???s eGFR Task Force developed new recommendations for the estimation of the glomerular filtration rate in the [place] They recommend immediate implementation of the new equation refit without the race variable in all laboratories because the calculation does not include race. In addition to not including race in the calculation and reporting, it included diversity in its development, and has acceptable performance characteristics and potential consequences that do not disproportionately affect any one group of individuals.BUN/Creatinine Ratio21. 6:30 AM [facility] ([facility] [place])Specimen (Source)Anatomical Location / LateralityCollection Method / VolumeCollection TimeReceived TimeBloodVenous blood specimen / Unknown Venipuncture / Iymtcrt7305/02/2025 5:46 AM EDT1 6:07 AM EDT Narrative Authorizing ProviderResult TypeResult StatusKerline Patel [facility] BLOOD ORDERABLESFinal ResultPerforming OrganizationAddressCity/State/ZIP CodePhone Number [facility] ([facility] [place]) [address] [place] [address] * Magnesium (05/02/2025 12:24 AM EDT)ComponentValueRef RangeTest MethodAnalysis TimePerformed AtPathologist SignatureMagnesium2.11.9 - 2.7 mg/dL05/02/2025 1:00 AM [facility] ([facility] [place])Specimen (Source)Anatomical Location / LateralityCollection Method / VolumeCollection TimeReceived TimeBloodVenous blood specimen / UnknownVenipuncture / Nxnlgpb6805/02/2025 12:24 AM EDT 05/02/2025 12:37 AM EDT Narrative Authorizing ProviderResult TypeResult StatusKerline Patel [facility] BLOOD ORDERABLESFinal ResultPerforming OrganizationAddressCity/State/ZIP CodePhone Number [facility] ([facility] [place]) [address] [place] [address] * (ABNORMAL) B-type natriuretic peptide (05/02/2025 12:24 AM EDT)ComponentValue Ref RangeTest MethodAnalysis TimePerformed AtPathologist SignatureBNP1,236(H)0 - 100 pg/mL05/02/2025 1:10 AM [facility] ([facility] [place])Specimen (Source) Anatomical Location / LateralityCollection Method / VolumeCollection Time Received TimeBloodVenous blood specimen / UnknownVenipuncture / Unknown 05/02/2025 12:24 AM EDT1 12:33 AM EDT Narrative Authorizing ProviderResult TypeResult StatusOsaS[facility] BLOOD ORDERABLESFinal ResultPerforming OrganizationAddressCity/State/ZIP CodePhone Number [facility]) [address] [place] [address] * (ABNORMAL) Basic metabolic panel (05/02/2025 12:24 AM EDT)ComponentValueRef RangeTest MethodAnalysis TimePerformed AtPathologist MylvknhuwAfkbvb978614 - 145 mmol/L1 1:00 AM [facility] ([facility] [place])Potassium3.93.5 - 5.1 mmol/L1 1:00 AM [facility] ([facility] [place])Shaqurjp12695 - 107 mmol/L1 1:00 AM [facility] ([facility] [place])BS85586 - 31 mmol/L 05/02/2025 1:00 AM [facility] ([facility] [place])BUN58(H)7 - 25 mg/dL05/02/2025 1:00 AM [facility] ([facility] [place])Creatinine2.85(H)0.60 - 1.20 mg/dL 05/02/2025 1:00 AM [facility] ([facility] [place])Cuzelbt827(H)70 - 100 mg/dL 05/02/2025 1:00 AM [facility] ([facility] [place])Calcium8.5(L)8.6 - 10.3 mg/dL 05/02/2025 1:00 AM [facility] ([facility] [place])Anion Kga654 - 20 mmol/L 05/02/2025 1:00 AM [facility] ([facility] [place])eGFR16.8(L)>60.0 mL/min/1.73m* 1:00 AM [facility] ([facility] [place])Comment:The [facility]???s estimated glomerular filtration rate (eGFR) will no longer include consideration of race in its calculation. The National Kid[employer] Foundation???s eGFR Task Force developed new recommendations for the estimation of the glomerular filtration rate in the [place] They recommend immediate implementation of the new equation refit without the race variable in all laboratories because the calculation does not include race. In addition to not including race in the calculation and reporting, it included diversity in its development, and has acceptable performance characteristics and potential consequences that do not disproportionately affect any one group of individuals.BUN/Creatinine Ratio20. 1:00 AM [facility] ([facility])Specimen (Source)Anatomical Location / LateralityCollection Method / VolumeCollection TimeReceived TimeBloodVenous blood specimen / Unknown Venipuncture / Edtmwse3705/02/2025 12:24 AM EDT1 12:37 AM EDT Narrative Authorizing ProviderResult TypeResult StatusOsayovani Patel [facility] BLOOD ORDERABLESFinal ResultPerforming OrganizationAddressCity/State/ZIP CodePhone Number [facility] ([facility] [place]) [address] [place] [address] * (ABNORMAL) CBC (05/02/2025 12:24 AM EDT)ComponentValueRef RangeTest Method Analysis TimePerformed AtPathologist SignatureAuto WBC10.314.00 - 10.60 10*3/uL05/02/2025 12:42 AM [facility] ([facility] [place])RBC2.93(L)3.80 - 5.00 10*6/uL05/02/2025 12:42 AM [facility] ([facility] [place])Hemoglobin8.5(L)12.0 - 15.0 g/dL05/02/2025 12:42 AM [facility] ([facility] [place])Vavmnjvamw57.1(L) 36.0 - 45.0 %05/02/2025 12:42 AM [facility] ([facility] [place])MCV89.182.0 - 98.0 fL05/02/2025 12:42 AM [facility] ([facility] [place])MCH29.027.0 - 33.0 pg 05/02/2025 12:42 AM [facility])MCHC32.632.0 - 35.0 g/dL 05/02/2025 12:42 AM [facility] ([facility] [place])RDW15.3(H)11.5 - 15.0 % 05/02/2025 12:42 AM [facility])Jsxpgupqg547549 - 400 10*3/uL 05/02/2025 12:42 AM [facility])Specimen (Source)Anatomical Location / LateralityCollection Method / VolumeCollection TimeReceived Time BloodVenous blood specimen / UnknownVenipuncture / Bsaugxq9705/02/2025 12:24 AM EDT1 12:33 AM EDT Narrative Authorizing ProviderResult TypeResult StatusOsaS[facility] BLOOD ORDERABLESFinal ResultPerforming OrganizationAddressCity/State/ZIP CodePhone Number [facility] ([facility] [place]) [address] [place] [address] documented in this encounter Visit Diagnoses Diagnosis Acute on chronic heart failure with preserved ejection fraction (HFpEF) (CMS/HCC)- Primary Acute on chronic heart failure with preserved ejection fraction (HFpEF) (CMS/HCC) Coronary arteriosclerosis Coronary atherosclerosis of unspecified type of vessel, solomon or graft Essential (primary) hypertension Unspecified essential hypertension Chronic diastolic heart failure (CMS/HCC) Chronic diastolic heart failure Goiter Goiter, unspecified Hypertensive disorder Unspecified essential hypertension Stage 4 chronic kidney disease (CMS/HCC) Type 2 diabetes mellitus (CMS/HCC) Acute on chronic heart failure with preserved ejection fraction (HFpEF) (CMS/HCC) documented in this encounter Admitting Diagnoses Diagnosis Acute on chronic heart failure with preserved ejection fraction (HFpEF) (CMS/HCC) documented in this encounter Administered Medications Medication OrderMAR ActionAction DateDoseRateSite allopurinol (Zyloprim) tablet 100 mg 100 mg, oral, Daily, First dose on Mon05/01/25 at 2115, For 99 days Given05/01/2025 10:01 PM PCA989 mg allopurinol (Zyloprim) tablet 100 mg 100 mg, oral, Nightly, First dose (after last reorder) on Mon05/02/25 at 2200, For 99 days Given05/03/2025 9:32 PM QWJ558 ucQvrxn2105/02/2025 10:15 PM OZG488 mg amLODIPine (Norvasc) tablet 10 mg 10 mg, oral, Daily, First dose on Mon05/01/25 at 2115, For 99 days Given05/04/2025 10:00 AM EST10 qlZdptv9105/03/2025 9:30 AM EDT10 xkHheqn8305/02/2025 1:38 PM EDT10 mg aspirin EC tablet 81 mg 81 mg, oral, Every morning, First dose on Mon05/02/25 at 1000, For 99 days, Do not crush, chew, orsplit. Given05/04/2025 10:00 AM EST81 evXuyyr9005/03/2025 9:30 AM EDT81 ohVjznl3805/02/2025 1:08 PM EDT81 mg atorvastatin (Lipitor) tablet 40 mg 40 mg, oral, Nightly, First dose on Mon05/01/25 at 2200, For 99 days Given05/03/2025 9:31 PM EDT40 kyNeopf5505/02/2025 10:15 PM EDT40 uiYgzbl7405/01/2025 10:01 PM EDT40 mg bumetanide (Bumex) injection 2 mg 2 mg, intravenous, Administer over 1 Minutes, 2 times daily, First dose on Mon05/01/25 at 2200 Given05/01/2025 10:00 PM EDT2 mg bumetanide (Bumex) injection 3 mg 3 mg, intravenous, Administer over 1 Minutes, 2 times daily, First dose (after last modification) on Mon05/02/25 at 1000 Given05/04/2025 10:00 AM EST3 irZpwoy6405/03/2025 9:31 PM EDT3 ywSjnwf2205/03/2025 9:30 AM EDT3 mg dextrose 50 % in water (D50W) syringe 25 g 25 g, intravenous, Every 15 min PRN, capillary blood glucose < 70 mg/dL and patient unable to take oral and has IV access, Starting on Mon05/02/25 at 0033, For 99 days, - Recheck blood glucose 5 minutes after dextrose administration. - Repeat treatment as ordered until blood glucose is greater than or equal to 80 mg/dL. - Provide a snack/meal within 1 hour after correction of hypoglycemia if not NPO. - If patient NPO or on enteral tube feeds, contact physician for potential additional interventions(s) (i.e. 5% or 10% dextrose IV fluids or tube feeding bolus) glucose chewable tablet 24 g 24 g, oral, Every 15 min PRN, capillary blood glucose < 70 mg/dL and patient alert and eating, Starting on Mon05/02/25 at 0033, For 99 days, - Recheck blood glucose 5 minutes after dextrose administration. - Repeat treatment as ordered until blood glucose is greater than or equal to 80 mg/dL. -Provide a snack/meal within 1 hour after correction of hypoglycemia if not NPO. - If patient NPO oron enteral tube feeds, contact physician for potential additional interventions(s) (i.e. 5% or 10% dextrose IV fluids or tube feeding bolus) heparin (porcine) injection 5,000 Units 5,000 Units, subcutaneous, Every 12 hours scheduled, First dose on Mon05/01/25 at 2200, For 99 days, Indications: deep vein thrombosis prevention Indications:deep vein thrombosis dkumhgehbtZdfbk80/02/2025 10:00 AM EST5,000 UnitsLeft Lower PayokaxXtnjj00/01/2025 9:31 PM EDT5,000 UnitsRight Lower Abdomen Given05/03/2025 9:30 AM EDT5,000 UnitsLeft Lower Abdomen hydrALAZINE (Apresoline) tablet 50 mg 50 mg, oral, 2 times daily, First dose on Mon05/01/25 at 2200, For 99 days Given05/04/2025 10:00 AM EST50 wiXhnxl0705/03/2025 9:31 PM EDT50 mkNwetk9105/03/2025 9:30 AM EDT50 mg insulin lispro (HumaLOG) injection 0-4 Units 0-4 Units, subcutaneous, Nightly, First dose on Mon05/02/25 at 0045, For 99 days, BG less than 110instructions: Hold Insulin. If BG below 70, implement hypoglycemia orders., BG 110-150: 0, BG 151-200: 0, BG 201-250: 1, BG 251-300: 2, BG 301-350: 3, BG 351-400: 4, BG greater than 400 instructions:Call Physician Given05/02/2025 10:15 PM EDT1 UnitsRight Lower Abdomen insulin lispro (HumaLOG) injection 0-5 Units 0-5 Units, subcutaneous, 3 times daily with meals, First dose on Mon05/02/25 at 0800, For 99 days,BG less than 110 instructions: Hold Insulin. If BG below 70, implement hypoglycemia orders., BG 110-150: 0, BG 151-200: 1, BG 201-250: 2, BG 251-300: 3, BG 301-350: 4, BG 351-400: 5, BG greater than 400 instructions: Call Physician Given05/04/2025 12:22 PM EST1 UnitsLeft Upper QhestezKtkhl05/01/2025 5:51 PM EDT 1 UnitsLeft Lower RgumgflEqqnt03/01/2025 12:43 PM EDT1 UnitsLeft Lower Abdomen isosorbide mononitrate ER (Imdur) 24 hr tablet 30 mg 30 mg, oral, Once Daily, First dose on Mon05/02/25 at 0900, For 99 days, Do not crush, chew, or split. Given05/04/2025 9:59 AM EST30 ygIgjpz4605/03/2025 9:30 AM EDT30 dsLnujd0405/02/2025 1:38 PM EDT30 mg levothyroxine (Synthroid, Levoxyl) tablet 75 mcg 75 mcg, oral, Daily, First dose on Mon05/01/25 at 2115, For 99 days Given05/04/2025 6:11 AM EST75 xlkYsouo63/01/2025 6:33 AM EDT75 mcgGiven 05/02/2025 5:25 AM EDT75 mcg metoprolol tartrate (Lopressor) tablet 50 mg 50 mg, oral, 2 times daily RT, First dose on Mon05/01/25 at 2115, For 99 days Given05/01/2025 10:01 PM EDT50 mg metoprolol tartrate (Lopressor) tablet 75 mg 75 mg, oral, 2 times daily RT, First dose (after last modification) on Mon05/02/25 at 0800, For 197 doses Given05/04/2025 9:00 AM EST75 qeZkyzn1805/03/2025 8:19 PM EDT75 cxEfkwj8805/03/2025 9:30 AM EDT75 mg potassium chloride CR (Klor-Con M20) ER tablet 40 mEq 40 mEq, oral, Daily, First dose on Mon05/01/25 at 2115, For 99 days, Best given with food and plenty of water to minimize gastric irritation. Do not crush or chew. Given05/04/2025 9:59 AM EST40 gCcBnvxo38/01/2025 9:30 AM EDT40 mEqGiven 05/02/2025 1:39 PM EDT40 mEq sodium bicarbonate tablet 650 mg 650 mg, oral, 2 times daily, First dose on Mon05/03/25 at 1300, For 99 days Given05/04/2025 10:00 AM CXR126 wdFoqrx0005/03/2025 9:32 PM WTG075 mgGiven 05/03/2025 1:43 PM LVI160 mgdocumented in this encounter Active and Recently Administered Medications Due to Daylight Saving Time, this section may contain times in both EDT and EST. Medication Order/ allopurinol (Zyloprim) tablet 100 mg 100 mg, oral, Nightly, First dose (after last reorder) on Mon05/02/25 at 2200, For 99 days * 2215 (Given - Provider: Marcos Avalos RN) * 2132 (Given - Provider: Marcos Avalos, BRYCE) amLODIPine (Norvasc) tablet 10 mg 10 mg, oral, Daily, First dose on Mon05/01/25 at 2115, For 99 days * 1338 (Given - Provider: Jhoana Carmona RN) * 0930 (Given - Provider: Trudy Collado, BRYCE) * 1000 (Given - Provider: Trudy Collado, BRYCE) aspirin EC tablet 81 mg 81 mg, oral, Every morning, First dose on Mon05/02/25 at 1000, For 99 days, Do not crush, chew, orsplit. * 1308 (Given - Provider: Jhoana Carmona RN) * 0930 (Given - Provider: Trudy Collado RN) * 1000 (Given - Provider: Trudy Collado, BRYCE) atorvastatin (Lipitor) tablet 40 mg 40 mg, oral, Nightly, First dose on Mon05/01/25 at 2200, For 99 days * 2214 (Given - Provider: Marcos Avalos RN) * 2130 (Given - Provider: Marcos Avalos RN) bumetanide (Bumex) injection 3 mg 3 mg, intravenous, Administer over 1 Minutes, 2 times daily, First dose (after last modification) on Mon05/02/25 at 1000 * 1225 (Given - Provider: Jhoana Carmona RN) * 221 (Given - Provider: Marcos Avalos RN) * 929 (Given - Provider: Trudy Collado RN) * 2130 (Given - Provider: Marcos Avalos RN) * 1000 (Given - Provider: Trudy Collado RN) heparin (porcine) injection 5,000 Units 5,000 Units, subcutaneous, Every 12 hours scheduled, First dose on Mon05/01/25 at 2200, For 99 days, Indications: deep vein thrombosis prevention * 1340 (Given - Provider: Jhoana Carmona RN) * 221 (Given - Provider: Marcos Avalos RN) * 929 (Given - Provider: Trudy Collado, BRYCE) * 2130 (Given - Provider: Marcos Avalos RN) * 1000 (Given - Provider: Trudy Collado, BRYCE) hydrALAZINE (Apresoline) tablet 50 mg 50 mg, oral, 2 times daily, First dose on Mon05/01/25 at 2200, For 99 days * 1339 (Given - Provider: Jhoana Carmona RN) * 2214 (Given - Provider: Marcos Avalos RN) * 09 (Given - Provider: Trudy Collado, BRYCE) * 2130 (Given - Provider: Marcos Avalos RN) * 1000 (Given - Provider: Trudy Collado, BRYCE) insulin lispro (HumaLOG) injection 0-4 Units(Linked Group 1) 0-4 Units, subcutaneous, Nightly, First dose on Mon05/02/25 at 0045, For 99 days, BG less than 110instructions: Hold Insulin. If BG below 70, implement hypoglycemia orders., BG 110-150: 0, BG 151-200: 0, BG 201-250: 1, BG 251-300: 2, BG 301-350: 3, BG 351-400: 4, BG greater than 400 instructions:Call Physician * 0045 (Not Given - Provider: Benja Degroot RN - Reason: Patient/family refused) * 2215 (Given - Provider: Marcos Avalos, BRYCE) * 2200 (Not Given - Provider: Marcos Avalos RN - Reason: Order parameters not met) insulin lispro (HumaLOG) injection 0-5 Units(Linked Group 1) 0-5 Units, subcutaneous, 3 times daily with meals, First dose on Mon05/02/25 at 0800, For 99 days,BG less than 110 instructions: Hold Insulin. If BG below 70, implement hypoglycemia orders., BG 110-150: 0, BG 151-200: 1, BG 201-250: 2, BG 251-300: 3, BG 301-350: 4, BG 351-400: 5, BG greater than 400 instructions: Call Physician * 0800 (Not Given - Provider: Jhoana Carmona RN - Reason: Patient not available) * 1226 (Given - Provider: Jhoana Carmona RN) * 1742 (Given - Provider: Jhoana Carmona RN) * 0800 (Not Given - Provider: Trudy Collado RN - Reason: Order parameters not met) * 1243 (Given - Provider: Trudy Collado RN) * 1751 (Given - Provider: Trudy Collado RN) * 0800 (Not Given - Provider: Trudy Collado RN - Reason: Order parameters not met - Comment: Glucose POC 125) * 1222 (Given - Provider: Trudy Collado RN) * 1700 (Canceled Entry - Provider: Automatic Discharge Provider - Comment: Automatically canceled at discontinue of medication order) isosorbide mononitrate ER (Imdur) 24 hr tablet 30 mg 30 mg, oral, Once Daily, First dose on Mon05/02/25 at 0900, For 99 days, Do not crush, chew, or split. * 1338 (Given - Provider: Jhoana Carmona, RN) * 0930 (Given - Provider: Trudy Collado, BRYCE) * 0959 (Given - Provider: Trudy Collado, BRYCE) levothyroxine (Synthroid, Levoxyl) tablet 75 mcg 75 mcg, oral, Daily, First dose on Corina 05/01/25 at 2115, For 99 days * 0525 (Given - Provider: Benja Degroot RN) * 0633 (Given - Provider: Marcos Avalos, BRYCE) * 0611 (Given - Provider: Marcos Avalos, RN) metOLazone (Zaroxolyn) tablet 2.5 mg 2.5 mg, oral, Once, On 05/03/25 at 1515, For 1 dose * 1515 (Not Given - Provider: Trudy Collado RN - Reason: Patient/family refused - Comment: education provided about med- pt verbalizes understanding and continues to refuse.) metoprolol tartrate (Lopressor) tablet 75 mg 75 mg, oral, 2 times daily RT, First dose (after last modification) on Mon05/02/25 at 0800, For 197 doses * 0800 (Not Given - Provider: Jhoana Carmona RN - Reason: Patient/family refused) * 2009 (Given - Provider: Marcos Avalos, BRYCE) * 0930 (Given - Provider: Trudy Collado, BRYCE) * 2019 (Given - Provider: Marcos Avalos, BRYCE) * 0900 (Given - Provider: Trudy Collado, BRYCE) potassium chloride CR (Klor-Con M20) ER tablet 40 mEq 40 mEq, oral, Daily, First dose on Corina 05/01/25 at 2115, For 99 days, Best given with food and plenty of water to minimize gastric irritation. Do not crush or chew. * 1339 (Given - Provider: Jhoana Carmona, BRYCE) * 0930 (Given - Provider: Trudy Collado, BRYCE) * 0959 (Given - Provider: Trudy Collado, RN) sodium bicarbonate tablet 650 mg 650 mg, oral, 2 times daily, First dose on 05/03/25 at 1300, For 99 days * 1343 (Given - Provider: Trudydwain Collado RN) * 2132 (Given - Provider: Marcos Avalos, RN) * 1000 (Given - Provider: Trudy Collado RN) Medication Order//08/2024 acetaminophen (Tylenol) tablet 650 mg 650 mg, oral, Every 6 hours PRN, mild pain (1-3 pain score), headaches, fever greater than or equalto 38 degrees Celsius, (1-3), Starting on [place] 05/01/25 at 2004, For 99 days dextrose 50 % in water (D50W) syringe 25 g(Linked Group 2) 25 g, intravenous, Every 15 min PRN, capillary blood glucose < 70 mg/dL and patient unable to take oral and has IV access, Starting on Mon05/02/25 at 0033, For 99 days, - Recheck blood glucose 5 minutes after dextrose administration. - Repeat treatment as ordered until blood glucose is greater than or equal to 80 mg/dL. - Provide a snack/meal within 1 hour after correction of hypoglycemia if not NPO. - If patient NPO or on enteral tube feeds, contact physician for potential additional interventions(s) (i.e. 5% or 10% dextrose IV fluids or tube feeding bolus) fentaNYL (Sublimaze) injection (CANCELED) As needed, Starting on Mon05/02/25 at 1120, Intraprocedure * 1120 (Given - Provider: Ginny Duff RN) * 1134 (Given - Provider: Ginny Duff RN) glucose chewable tablet 24 g(Linked Group 2) 24 g, oral, Every 15 min PRN, capillary blood glucose < 70 mg/dL and patient alert and eating, Starting on Mon05/02/25 at 0033, For 99 days, - Recheck blood glucose 5 minutes after dextrose administration. - Repeat treatment as ordered until blood glucose is greater than or equal to 80 mg/dL. -Provide a snack/meal within 1 hour after correction of hypoglycemia if not NPO. - If patient NPO oron enteral tube feeds, contact physician for potential additional interventions(s) (i.e. 5% or 10% dextrose IV fluids or tube feeding bolus) heparin irrigation 2 units/mL in NS (CANCELED) As needed, Starting on Mon05/02/25 at 1107, Intraprocedure * 1107 (Given - Provider: Rickey Jackson MD) lidocaine (PF) (Xylocaine) 10 mg/mL (1 %) injection (CANCELED) As needed, Starting on Mon05/02/25 at 1107, Intraprocedure * 1107 (Given - Provider: Rickey Jackson MD) midazolam (Versed) injection (CANCELED) As needed, Starting on Mon05/02/25 at 1137, Intraprocedure * 1137 (Given - Provider: Ginny Duff, BRYCE) midodrine (Proamatine) tablet 5 mg 5 mg, oral, As needed, as needed for orthostatic hypotension, Starting on Mon05/01/25 at 2107, For99 days sennosides-docusate sodium (Andree-Colace) 8.6-50 mg per tablet 1 tablet 1 tablet, oral, 2 times daily PRN, constipation, Starting on Mon05/01/25 at 2004, For 99 days sodium chloride 0.9 % infusion (COMPLETED) Continuous PRN, Starting on Mon05/02/25 at 1107, Intraprocedure * 1107 (New Bag - Provider: Ginny Duff, BRYCE) Order Group 1: insulin lispro (HumaLOG) injection 0-5 UnitsJump to med 0-5 Units, subcutaneous, 3 times daily with meals, First dose on Mon05/02/25 at 0800, For 99 days,BG less than 110 instructions: Hold Insulin. If BG below 70, implement hypoglycemia orders., BG 110-150: 0, BG 151-200: 1, BG 201-250: 2, BG 251-300: 3, BG 301-350: 4, BG 351-400: 5, BG greater than 400 instructions: Call Physician And insulin lispro (HumaLOG) injection 0-4 UnitsJump to med 0-4 Units, subcutaneous, Nightly, First dose on Mon05/02/25 at 0045, For 99 days, BG less than 110instructions: Hold Insulin. If BG below 70, implement hypoglycemia orders., BG 110-150: 0, BG 151-200: 0, BG 201-250: 1, BG 251-300: 2, BG 301-350: 3, BG 351-400: 4, BG greater than 400 instructions:Call Physician Group 2: glucose chewable tablet 24 gJump to med 24 g, oral, Every 15 min PRN, capillary blood glucose < 70 mg/dL and patient alert and eating, Starting on Mon05/02/25 at 0033, For 99 days, - Recheck blood glucose 5 minutes after dextrose administration. - Repeat treatment as ordered until blood glucose is greater than or equal to 80 mg/dL. -Provide a snack/meal within 1 hour after correction of hypoglycemia if not NPO. - If patient NPO oron enteral tube feeds, contact physician for potential additional interventions(s) (i.e. 5% or 10% dextrose IV fluids or tube feeding bolus) Or dextrose 50 % in water (D50W) syringe 25 gJump to med 25 g, intravenous, Every 15 min PRN, capillary blood glucose < 70 mg/dL and patient unable to take oral and has IV access, Starting on Mon05/02/25 at 0033, For 99 days, - Recheck blood glucose 5 minutes after dextrose administration. - Repeat treatment as ordered until blood glucose is greater than or equal to 80 mg/dL. - Provide a snack/meal within 1 hour after correction of hypoglycemia if not NPO. - If patient NPO or on enteral tube feeds, contact physician for potential additional interventions(s) (i.e. 5% or 10% dextrose IV fluids or tube feeding bolus) documented in this encounter Care Teams Team MemberRelationshipSpecialtyStart DateEnd John Perdomo DO [address] [place] [address] PCP - Qwrwfbs32/8/22documented as of this encounter
--- OUTSIDE RECORDS SUMMARY | 2025-05-02 08:30 | XMS_ITS | Encounter Summary ---
Author Organization [facility] Address [address] [place] [address] Care Team Providers Care Delivery Rep Name Role Phone PerdomoJohn Primary Care Provider [phone] Reason for Visit * Auth/Cert (Routine)SpecialtyDiagnoses / ProceduresReferred By ContactReferred To Contact Diagnoses Acute on chronic heart failure with preserved ejection fraction (HFpEF) (CMS/[facility]) CHF Exacerbation/CKD Procedures NO CODED SERVICES Crispin Galeano MD [address] [place] [address] Phone: tel: fax: [facility] [address] [place] [address] Phone: tel: fax: Referral IDStatusReasonStart DateExpiration DateVisits RequestedVisits [id number] Encounter Details DateTypeDepartmentCare Team (Latest Contact Info)Kmwychbcqjf24/31/2025 9:30 AM EDT - 05/02/2025 10:30 AM EDTSurgery [facility] V[facility] Lab [address] [place] [address] Rickey Jackson MD [address] [facility] [address] [facility] [place] [address] Right heart cath [72069 (CPT??) +1 more] Social History Tobacco UseTypesPacks/DayYears UsedDateSmoking Tobacco: NeverSmokeless Tobacco: NeverAlcohol UseStandard Drinks/WeekCommentsNot Currently0 (1 standard drink = 0.6 oz pure alcohol)[facility] UtilitiesAnswerDate RecordedIn the past 12 months has [...] were you homeless or living in a halfway (including now)? No05/01/2025Hunger Vital SignAnswerDate RecordedWithin the past 12 months, you worried that your food would run out before you got the money to buymore.Never true05/01/2025Ran Out of Food in the Last YearNot on file05/01/2025 CommentsUnknownSex and Gender InformationValueDate RecordedSex Assigned at Cmaagr0805/19/2022 6:11 PM ESTLegal OpzZaudhs62/30/2022 12:22 AM EDTGender FqfggggaZpjdak46/17/2022 6:11 PM ESTSexual OrientationHeterosexual or Straight 05/19/2022 6:11 PM ESTdocumented as of this encounter Last Filed Vital Signs Vital SignReadingTime TakenCommentsBlood Wlzietku055/7805/02/2025 9:16 AM EDT Jouvd299505/02/2025 9:16 AM GCLEvafxdxpqja81.3 ??C (97.3 ??F)05/02/2025 9:16 AM EDTRespiratory Fuiv258905/02/2025 9:16 AM EDTOxygen Yfnsjltnqj41%05/02/2025 9:16 AM EDTInhaled Oxygen Concentration--Gqbxrp14.7 kg (138 lb 3.7 oz)05/02/2025 5:00 AM FAXXmqjds380.2 cm (4' 8 )05/01/2025 6:01 PM EDTBody Mass Index28.4705/01/2025 6:01 PM EDTdocumented in this encounter Functional Status * QuestionAnswerDate of MqbgciakuxJnzokcZU774/7805/02/2025 9:16 AM Jhoana Sims RNPulse7505/02/2025 9:16 AM Jhoana Sims RNHeart Rate SourceMonitor 05/02/2025 9:16 AM Jhoana Sims RNPatient CyluehmfEfkrg46/31/2025 9:16 AM Jhoana Sims RN * Pina Fall RiskQuestionAnswerDate of AssessmentAuthorHistory of Falling, Immediate or Within 3 Kvptko457 9:16 AM Jhoana Sims RNSecondary Uyoiggliz5551/31/2025 9:16 AM Jhoana Sims RNAmbulatory Bkn611 9:16 AM Jhoana Sims RNIntravenous Therapy/Heparin Vzgz7969 9:16 AM Jhoana Sims RNGait/Wubcgcmcglkz577/31/2025 9:16 AM Jhoana Sims RNMental Vqgfyf164/31/2025 9:16 AM Jhoana Sims RNMorse Fall Risk Score35 05/02/2025 9:16 AM Jhoana Sims RN * Phill ScaleQuestionAnswerDate of AssessmentAuthorBraden No Risk Interventions Continue to assess patient according to level of care05/02/2025 9:16 AM Jhoana Del Castillo, RNSensory Pcakweojshi812/31/2025 9:16 AM Jhoana Sims RN Eijlitkm592/31/2025 9:16 AM Jhoana Sims, IEHdpemycb019/31/2025 9:16 AM Jhoana Sims RNMobility41 9:16 AM Jhoana Sims RNNutrition3 05/02/2025 9:16 AM Jhoana Sims, RNFriction and Lisbx257 9:16 AM Jhoana Sims RNBraden Scale Yrnuu9958/31/2025 9:16 AM Jhoana Sims RN * Surry Fall Risk InterventionsQuestionAnswerDate of AssessmentAuthor Surry Fall Risk OonqmacvpfbtbDpeuqnrt21/31/2025 9:16 AM Jhoana Sims RN * Pain Assessment TimerQuestionAnswerDate of AssessmentAuthorRestart Pain Assessment CnfjdSps39/31/2025 9:16 AM Jhoana Sims RN * Sepsis [...] AM Jhoana Sims RNR EyeMildlfélix impaired vision;Corrective ucadpj1705/02/2025 9:16 AM Jhoana Del Castillo RNL EyeMildlfélix impaired vision;Corrective ihsfqy9905/02/2025 9:16 AM Jhoana Sims RNMucous Membrane(s)Moist;[place];Prxkjs4305/01/2025 8:23 PM Benja Mar RNTeethIntact05/01/2025 6:01 PM [...] 9:16 AM Jhoana Sims RNShort Portable Mental Gsurv593 9:16 AM Jhoana Sims RN * Fall [...] PM Jhoana Sims RNProvider notified of new ddmvwVf8905/01/2025 6:01 PM Jhoana Sims RN * Vital SignsQuestionAnswerDate of KctjkiyuutGzxjsfEI582/7805/02/2025 9:16 AM Jhoana Sims RNTemp97.310 9:16 AM Jhoana Sims RNTemp src Ymoobujq69/31/2025 9:16 AM Jhoana Sims ANHvcxi4093/31/2025 9:16 AM Jhoana Del Castillo RNResp2705/02/2025 9:16 AM Jhoana Sims RNSpO2961 9:16 AM Jhoana Sims RNHeart Rate MwibfaRkvpanr50/31/2025 9:16 AM Jhoana Del Castillo RNBP LocationRight arm05/02/2025 9:16 AM Jhoana Sims RNBP LzwzndBthbwwnzq04/31/2025 9:16 AM Jhoana Sims RNMAP (mmHg)9305/02/2025 9:16 AM Jhoana Sims, RNPatient KeqszsftLgevr69/31/2025 9:16 AM EDJhoana Woody RN * QuestionAnswerDate of AssessmentAuthorSwallowAble to swallow solids and liquids without xsqidtuvya12/31/2025 9:16 AM Jhoana Sims RN * QuestionAnswerDate of AssessmentAuthorBilateral Breath SoundsClear;Diminished 05/02/2025 9:16 AM Jhoana Sims RNRespiratory HjpffokCdckty93/31/2025 9:16 AM Jhoana Sims RNChest AssessmentChest expansion symmetrical 05/02/2025 9:16 AM Jhoana Sims RNRespiratory IcmdseZwkepmyjh99/31/2025 9:16 AM Jhoana Sims RNRespiratory Depth/SiwfwqFkkuzri59/31/2025 9:16 AM Jhoana Sims RNDyspnea OccurrenceWith qrsojuyy80/31/2025 9:16 AM Jhoana Del Castillo RN * QuestionAnswerDate of AssessmentAuthorCardiac NrutktIVX88/31/2025 9:16 AM Jhoana Del Castillo RNEctopy PcrpypqznCelgokyxxm53/30/2025 6:01 PM Jhoana Sims RNCardiac XapnbvbfodLnreetp92/31/2025 9:16 AM Jhoana Sims RN Embedded Software Development Engineer JjafqtBz34/31/2025 9:16 AM Jhoana Sims RNTelemetry Box Fumlbdln420920/31/2025 9:16 AM Jhoana Sims RNJugular Venous Distention (JVD)Yes05/02/2025 9:16 AM Jhoana Sims RNCardiac SwmxkiaaIoyn70/31/2025 9:16 AM Jhoana Sims RNHeart SoundsS1, S205/02/2025 [...] upper extremity;Left lower extremity;Left upper extremity;Right lower sbxeuuyal99/31/2025 9:16 AM Jhoana Del Castillo RN * RUE Neurovascular AssessmentQuestionAnswerDate of AssessmentAuthorRUE Edema+1 05/02/2025 9:16 AM Jhoana Sims RNRUE Capillary RefillLess than/equal to 2 qpesvvp7805/02/2025 9:16 AM Jhoana Sims RNRUE ColorAppropriate for eoboggqxp07/31/2025 9:16 AM Jhoana Sims RNRUE Temperature/Moisture Warm;Dry05/02/2025 9:16 AM Jhoana Sims RNRight Radial Pulse+ 9:16 AM EDTSaville, Jhoana, RN * LUE Neurovascular AssessmentQuestionAnswerDate of AssessmentAuthorLUE Edema+1 05/02/2025 9:16 AM EDJhoana Robertson, RNLUE Capillary RefillLess than/equal to 2 qcvbhvi8405/02/2025 9:16 AM EDJhoana Robertson, RNLUE ColorAppropriate for hjcggsquh83/31/2025 9:16 AM EDJhoana Robertson RNLUE Temperature/Moisture Warm;Dry05/02/2025 9:16 AM EDJhoana Robertson, RNLeft Radial Pulse+ 9:16 AM Jhoana Sims, RN * RLE Neurovascular AssessmentQuestionAnswerDate of AssessmentAuthorRLE Edema+1 05/02/2025 9:16 AM EDJhoana Robertson, RNRLE Capillary RefillLess than/equal to 2 ybddvbt8205/02/2025 9:16 AM EDTSJhoana ramirez, RNRLE ColorAppropriate for fqmxursry74/31/2025 9:16 AM EDJhoana Robertson, RNRLE Temperature/Moisture Warm;Dry05/02/2025 9:16 AM Jhoana Sims, RNRight Posterior Tibial Pulse+1 05/02/2025 9:16 AM Jhoana Sims, RNRight Pedal Pulse+ 9:16 AM Jhoana Sims RN * LLE Neurovascular AssessmentQuestionAnswerDate of AssessmentAuthorLLE Edema+1 05/02/2025 9:16 AM EDJhoana Robertson RNLLE Capillary RefillLess than/equal to 2 oowphla0705/02/2025 9:16 AM EDJhoana Robertson, RNLLE ColorAppropriate for [...] AssessmentAuthorHistory of Falling, Immediate or Within 3 Gdcxwd446 9:16 AM Jhoana Sims RNSecondary Kmvoxuhfx8353/31/2025 9:16 AM Jhoana Sims RNAmbulatory Uxm890 9:16 AM Jhoana Sims RNIntravenous Therapy/Heparin Xxev9793 9:16 AM Jhoana Sims RNGait/Cdkokibsakrn540/31/2025 9:16 AM Jhoana Sims RNMental Nkimid905/31/2025 9:16 AM Jhoana Sims RNMorse Fall Risk Score35 05/02/2025 9:16 AM Jhoana Sims RN * Phill ScaleQuestionAnswerDate of AssessmentAuthorBraden No Risk Interventions Continue to assess patient according to level of care05/02/2025 9:16 AM Jhoana Del Castillo RNSensory Fduztonxtlg711/31/2025 9:16 AM Jhoana Sims RN Hciybfns261/31/2025 9:16 AM Jhoana Sims, TPUslomadl735/31/2025 9:16 AM Jhoana Sims RNMobility41 9:16 AM Jhoana Sims RNNutrition3 05/02/2025 9:16 AM Jhoana Sims, RNFriction and Erlzw894 9:16 AM Jhoana Sims RNBraden Scale Xawdv1245/31/2025 9:16 AM Jhoana Sims RN * Charting TypeQuestionAnswerDate of AssessmentAuthorCharting TypeShift vawrfvspfo52/31/2025 9:16 AM Jhoana Sims RN * Cultural Requests During HospitalizationAnswerDate of AssessmentAuthordeclined 05/02/2025 9:00 AM Jhoana Sims RN * Spiritual Requests During HospitalizationAnswerDate of AssessmentAuthor chchliun52/31/2025 9:00 AM Jhoana Sims RN * GenitourinaryQuestionAnswerDate of AssessmentAuthorGenitourinary (WDL)WDL 05/02/2025 9:16 AM Jhoana Sims RNUrinary SnbxmoforbtoXi82/31/2025 9:16 AM Jhoana Sims RN * Patient MonitoringQuestionAnswerDate of AssessmentAuthorFrequency of Checks Twice per hour, krjndfki39/31/2025 9:16 AM Jhoana Sims RN * Safe EnvironmentQuestionAnswerDate of AssessmentAuthorChair AlarmsOff 05/02/2025 9:16 AM Jhoana Sims RNArm Bands OnID05/02/2025 9:16 AM Jhoana Del Castillo RNSide Rails/Bed Safety2/ 9:16 AM Jhoana Sims RNBed ZutddyTrt07/31/2025 9:16 AM Jhoana Sims RNThe Patient's Environment is LyftVox00/31/2025 9:16 AM Jhoana Sims RN * MobilityQuestionAnswerDate of JdgtqicdovNmqvusLsozctyuxu03/31/2025 9:16 AM Jhoana Del Castillo RNActivity PerformedAmbulated in room05/02/2025 9:16 AM Jhoana Del Castillo RNRepositionedTurns self05/02/2025 9:16 AM Jhoana Sims RN Level of IbjdzuzezlQsrukfxgvtg56/31/2025 9:16 AM Jhoana Sims RNHead of Bed ElevatedSelf /31/2025 9:16 AM Jhoana Sims RNHeels/Feet Foot of bed elevated;Heels elevated off bed05/02/2025 9:16 AM Jhoana Sims RNRange of MotionActive;All othwwfbzciz61/31/2025 9:16 AM Jhoana Sims, CODYnti-Embolism DevicesBilateral;Sequential compression devices, below knee05/02/2025 9:16 AM Jhoana Sims, CODYnti-Embolism InterventionOff 05/02/2025 9:16 AM Jhoana Sims RNPatient's mobility zoneZone 9:16 AM Jhoana Sims RNPositioning FrequencyAble to turn self05/02/2025 9:16 AM Jhoana Sims RN * HygieneQuestionAnswerDate of AssessmentAuthorSkin CarePer self05/02/2025 9:16 AM Jhoana Sims RNHygieneBathed;Per self05/01/2025 11:00 PM Diya Moore NALevel of EuahcdyydjDpqruznwako99/31/2025 9:16 AM Jhoana Sims RNIs Patient Total Care?No05/02/2025 9:16 AM Jhoana Sims RNIncontinence Protective DevicesAbsorbent pad05/02/2025 9:16 AM Jhoana Sims RN * PrecautionsQuestionAnswerDate of VgmkuuzpqzRyijzeHudnulxhgkfFtaw73/31/2025 9:16 AM Jhoana Sims RN * Family/Significant Other CommunicationQuestionAnswerDate of AssessmentAuthor Family/Significant Other FtwycrWmvntryf14/31/2025 9:16 AM Jhoana Sims RN * Comfort and Environment InterventionsQuestionAnswerDate of AssessmentAuthor DfeyzidHfpqpndrmhwj61/31/2025 9:16 AM Jhoana Sims RN * Safety Equipment at BedsideQuestionAnswerDate of AssessmentAuthorSafety Equipment at ApdyimeVhoe45/31/2025 9:16 AM Jhoana Sims RN * ADL ScreeningQuestionAnswerDate of AssessmentAuthorDo you snore or wake up gasping for air?No05/01/2025 6:50 PM Ana Davies RNCan you bring in your CPAP/BiPAP from home?N/A1 6:50 PM Ana Davies RNPatient's Vision Adequate to Safely Complete Daily NbudonnjwnQtx46/30/2025 6:50 PM Ana Davies RNPatient's Judgment Adequate to Safely Complete Daily ActivitiesYes 05/01/2025 6:50 PM Ana Davies RNPatient's Memory Adequate to Safely Complete Daily EvtknzzgowLru71/30/2025 6:50 PM Ana Davies RNPatient Able to Express Needs/BkgsugdWvf98/30/2025 6:50 PM Ana Davies, RNDressing Optiaiulimk20/30/2025 6:50 PM Ana Davies VGPzcxegofXykvwrpaben09/30/2025 6:50 PM Ana Davies, KMNcmttppEaifjdxvxfg69/30/2025 6:50 PM Ana Davies, DELdayxwaKhfxboimqzl80/30/2025 6:50 PM Ana Davies, RNToiletingIndependent 05/01/2025 6:50 PM Ana Davies, RNIn/Out WhcZudomkgonki77/30/2025 6:50 PM Ana Davies, RNWalks in JqphJlyfslsfsix50/30/2025 6:50 PM Ana Davies RNWeakness of GujsWprm39/30/2025 6:50 PM Ana Davies RNWeakness of Arms/JwifzPgwg04/30/2025 6:50 PM Ana Davies RNHearing - Right Ear Inrwpzezgq53/30/2025 6:50 PM Ana Davies RNHearing - Left EarFunctional 05/01/2025 6:50 PM Ana Davies, RNWhich is your dominant hand?Right 05/01/2025 6:50 PM Ana Davies RN * ConsultsQuestionAnswerDate of AssessmentAuthorSpiritual Care Consult NeededNo 05/01/2025 6:51 PM Ana Davies RNSocial Services Consult NeededNo 05/01/2025 6:51 PM Ana Davies RN * Therapy ConsultsQuestionAnswerDate of AssessmentAuthorPT Evaluation Needed1 05/01/2025 6:50 PM Ana Davies RNOT Evaluation Gvzmpg295 6:50 PM Ana Davies RNSLP Evaluation Kyzqpd944/30/2025 6:50 PM Ana Davies RN * Assistive DevicesQuestionAnswerDate of AssessmentAuthorAssistive Devices Nvaiovwjjh85/30/2025 6:50 PM Ana Davies RN * Surry Fall Risk InterventionsQuestionAnswerDate of AssessmentAuthor Surry Fall Risk EklpcsilnnxzxSvqpxyrz77/31/2025 9:16 AM Jhoana Sims RN * Suicidal IdeationQuestionAnswerDate of AssessmentAuthor1. Wish to be (Lifetime)No05/01/2025 6:51 PM Ana Davies RN2. Non-Specific Active Suicidal Thoughts (Lifetime)No05/01/2025 6:51 PM Ana Davies RN * Pain AssessmentQuestionAnswerDate of AssessmentAuthorPain Interventions Repositioned;Rest05/02/2025 9:16 AM Jhoana Sims RNPatient's Stated Pain GoalNo pain05/02/2025 9:16 AM Jhoana Sims RNPain AssessmentNo/denies pain05/02/2025 9:16 AM Jhoana Sims RN * NutritionQuestionAnswerDate of AssessmentAuthorDiet TztuRXK09/31/2025 9:16 AM Jhoana Sims RNFeedingAble to feed self05/02/2025 9:16 AM Jhoana Sims RN * Respiratory InterventionsQuestionAnswerDate of AssessmentAuthorRespiratory Interventions PerformedCough and deep wetqchx26/31/2025 9:16 AM Jhoana Sims RN * Cough and Deep BreatheQuestionAnswerDate of AssessmentAuthorCough and Deep TtlparlYhe46/31/2025 9:16 AM Jhoana Sims RN * IntegumentaryQuestionAnswerDate of AssessmentAuthorIntegumentary (WDL)WDL 05/02/2025 9:16 AM Jhoana Sims RN * QuestionAnswerDate of AssessmentAuthorPatient Goal for Treatmentdischarge 05/02/2025 9:00 AM Jhoana Sims RN * Patient Strengths/Problem AreasQuestionAnswerDate of AssessmentAuthorStrengths (Must Choose Two)Communication Skills;Supportive Ybyqly4105/01/2025 6:51 PM Ana Chang RNProblem AreasHealth Problems;Physical Cqsksp2105/01/2025 6:51 PM Ana Davies RN * Environment [...] deficits and behaviors that affect risk of falls;[place] fall precautions as indicated by assessment;Educate patient/family [...] Damon RN * Weight Loss ScoreAnswerDate of TrotqajrbcXshmgh907/30/2025 7:45 PM Li Damon RN * Malnutrition ScoreAnswerDate of HnttpxddyvYkwtly467/30/2025 7:45 PM Li Damon RN documented as of this encounter Discharge Summaries * Gela Ness MD - 05/04/2025 4:00 PM EST Images from the original note were not included. Internal Medicine Discharge Summary Final Discharge Diagnosis: Acute on chronic HFrEF Admission Diagnosis: Acute on chronic heart failure with preserved ejection fraction (HFpEF) ([facility]) [I50.33] Hospital course: 75-year-old female with history [...] MOUTH EVERYDAY AT BEDTIME ergocalciferol 1.25 MG (85530 Units) capsule Commonly known as: Vitamin D-2 [...] Your Medications These medications were sent to [facility]/pharmacy #[id number] [place] [address] bumetanide 1 mg tablet levothyroxine 50 mcg [...] least in part, completed using a voice scientific programmer system. Every effort was made to ensure accuracy. However, inadvertent computerized scientific programmer errors may be present [facility] Medicine 05/04/2025 6:58 PM CC: DO [...] up with Cardiology (already scheduled) and Nephrology ([facility]). documented in this encounter Discharge Instructions [...] taller/more pillows than normal or in recliner. [phone] documented in this encounter Medications at Time [...] 90 tablet ergocalciferol (Vitamin D-2) 1.25 MG (83858 UT) capsule Take 1 capsule by mouth [...] 24 hr tablet Indications:Coronary artery disease involving king salmon coronary artery of king salmon heart without angina pectorisTake 1 tablet (30 [...] or >2 pound weight gain.). 90 tablet nitroglycerin (Nitrostat) 0.4 mg SL tablet Indications:Coronary artery disease of king salmon artery of king salmon heart with stable angina pectorisPlace 1 tablet [...] and essential hypertension who was admitted to [facility] as a transfer from [facility] on 05/01/2025 after she initially presented [...] Dose Status allopurinol (Zyloprim) 100 mg tablet [id number] TAKE 1 TABLET BY MOUTH ONCE DAILY FOR 90 DAYS Historical MD Marcelo Active amLODIPine (Norvasc) 10 mg tablet [id number] TAKE 1 TABLET BY MOUTH EVERY DAY Bran Fish MD Active aspirin 81 mg EC tablet [id number] Take 1 tablet every day by oral route. Drea Robertson MD Active atorvastatin (Lipitor) 40 mg tablet [id number] TAKE 1 TABLET BY MOUTH EVERYDAY AT BEDTIME Bran Fish MD Active bumetanide (Bumex) 2 mg tablet [id number] Take 2 tablets (4 mg) by mouth two times daily. Patient taking differently: Take 2 mg by mouth in the morning. Bran Fish MD Active doxazosin (Cardura) 4 mg tablet [id number] TAKE 1 AND 1/2 TABLETS BY MOUTH TWICE A DAY Patient not taking: Reported on 05/01/2025 Bran Fish MD Active ergocalciferol (Vitamin D-2) 1.25 MG (39050 UT) capsule [id number] Take 1 capsule by mouth 1 (one) time per week. Historical MD Marcelo Active ferrous sulfate 325 (65 Fe) MG tablet [id number] TAKE 1 TABLET BY MOUTH EVERY OTHER DAY FOR 90 DAYS Historical ProviderMD Active folic acid (Folvite) 1 mg tablet [id number] Take 1 mg by mouth in the morning. Historical ProviderMD Active hydrALAZINE (Apresoline) 50 mg tablet [id number] TAKE 1 TABLET BY MOUTH TWO TIMES DAILY. Patient taking differently: Take 50 mg by mouth four times daily. Emilia To CNP Active insulin glargine (Lantus) 100 unit/mL (3 mL) pen [id number] Inject under the skin. Patient taking differently: Inject under the skin if needed. Historical ProviderMD Active isosorbide mononitrate ER (Imdur) 30 mg 24 hr tablet [id number] Take 1 tablet (30 mg) by mouth once daily as directed. Do not crush or chew. Bran Fish MD Active levothyroxine (Synthroid, Levoxyl) 50 mcg tablet [id number] Take 1 tablet by mouth in the morning. Patient taking differently: Take 75 mcg by mouth in the morning. Historical ProviderMD Active metOLazone (Zaroxolyn) 2.5 mg tablet [id number] TAKE 1 TABLET BY MOUTH IF NEEDED FOR SWELLING OR WEIGHT GAIN Patient not taking: Reported on 05/01/2025 Bran Fish MD Active metoprolol tartrate (Lopressor) 50 mg tablet [id number] Take 1.5 tablets (75 mg) by mouth in the morning and at bedtime. Patient taking differently: Take 50 mg by mouth in the morning and at bedtime. Emilia To CNP Active midodrine (Proamatine) 5 mg tablet [id number] Take 1 tablet (5 mg) by mouth if needed (as needed for orthostatic hypotension). Patient not taking: Reported on 05/01/2025 Bran Fish MD Active nitroglycerin (Nitrostat) 0.4 mg SL tablet [id number] Place 1 tablet (0.4 mg) under the tongue every 5 (five) minutes if needed for chest pain. Bran Fish MD Active potassium chloride CR (Klor-Con M20) 20 mEq ER tablet [id number] Take 40 mEq by mouth in the [...] Agent, Strain, 3D, Bubble Study 1 [facility] Heart Station [address] [facility]. [place] [id number] [phone] (fax) Echocardiogram-[facility] Name: CLAUDIA POLO Study Date: 05/02/2025 07:57 AM B/P: 164 mmHg/64 mmHg HR: 72 bpm Date of : 1950 Location: [facility] Height: 56 in. Age: 75 year(s) [...] No pericardial effusion. Procedure Staff Reading Group: [facility] Referring Physician: JOHN PERDOMO Restaurant Line Cook: HALLE Jacob Ordering Physician: EH HIGUERA Cardiac [...] This was exchanged out for a 6 Bangladeshi 11 cm sheath. Right heart catheterization was [...] CKD stage 4. Ur protein/Cr ratio: 2.65. Pgsyt-sq-zsbdsfo heart failure exacerbation. Triple-vessel CAD demonstrated on [...] you. Johnny Hines MD PGY-3, Internal Medicine [facility] Cosigned by Jazzmine Kelsey MD [...] of Nephrology, Department of Medicine, [facility]. * Robson White [...] Denies chest pain or dyspnea. Discomfort at [facility] site with bruising on right neck. Feels a lot better. Awaiting nephro input. Subjective: Claudia Polo is a 75 y.o. female with a past medical history notable for hypertension, HFpEF, CAD s/p CABG 2020, hyperlipidemia, CKD 4, and diabetes who presents from [facility] cardiology clinic due to worsening dyspnea on [...] Value Ventricular Rate 74 Atrial Rate 74 OK Interval 168 QRS DURATION 68 QT Interval 410 QTC CALCULATION(BAZETT) 455 P [place] 64 R-[place]ainbridge 15 T Wave [place] 103 Impression Normal sinus rhythm Abnormal QRS-T [...] Bubble Study Result Date: 05/02/2025 1 1 [facility] Heart Station [address] [place] [address] [phone] (fax) Echocardiogram-[facility] Name: CLAUDIA POLO Study Date: 05/02/2025 07:57 AM B/P: 164 mmHg/64 mmHg HR: 72 bpm Date of : 1950 Location: [facility] Height: 56 in. Age: 75 year(s) Patient Room: [facility]6 Weight: 138 lb. Gender: Female Patient Status:InPt [...] No pericardial effusion. Procedure Staff Reading Group: [facility] Referring Physician: JOHN PERDOMO Restaurant Line Cook: Jessica Bain [facility] Ordering Physician: EH HIGUERA No nuclear medicine [...] Agent, Strain, 3D, Bubble Study 1 1 [facility] Heart [facility] [address] [place] [id number] [phone] (fax) Echocardiogram-[facility] Name: CLAUDIA POLO Study Date: 05/02/2025 07:57 AM B/P: 164 mmHg/64 mmHg HR: 72 bpm Date of : 1950 Location: [facility] Height: 56 in. Age: 75 year(s) [...] No pericardial effusion. Procedure Staff Reading Group: [facility] Referring Physician: JOHN PERDOMO Restaurant Line Cook: HALLE Jacob Ordering Physician: EH HIGUERA Cardiac [...] This was exchanged out for a 6 Bangladeshi 11 cm sheath. 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 Claudia Polo is an 75 y.o. female who came from [facility] with prior history of hypertension and [...] fever. She was advised to come to [facility] for CHF exacerbation. Subjective The patient [...] heart failure with preserved ejection fraction (HFpEF) ([facility]) Active Problems: Hypertensive disorder Stage 4 chronic kidney disease ([facility]) Type 2 diabetes mellitus ([facility]) Assessment and Plan Acute on chronic heart [...] 4.54 05/02/2025 Lab Results Component Value Date [id number] 424 05/02/2025 IRON 53 05/02/2025 TIBC 235 [...] Agent, Strain, 3D, Bubble Study 1 1 [facility] Heart Station [address] [place] [address] [phone] (fax) Echocardiogram-[facility] Name: CLAUDIA POLO Study Date: 05/02/2025 07:57 AM B/P: 164 mmHg/64 mmHg HR: 72 bpm Date of : 1950 Location: [facility] Height: 56 in. Age: 75 year(s) [...] No pericardial effusion. Procedure Staff Reading Group: [facility] Referring Physician: JOHN PERDOMO Restaurant Line Cook: Jessica Bain [facility] Ordering Physician: EH HIGUERA Cardiac catheterization Cardiovascular [...] This was exchanged out for a 6 Bangladeshi 11 cm sheath. Right heart catheterization was [...] Henrry Rivera MD Internal Medicine Resident, PGY1 [facility] Medicine 05/03/2025 11:32 AM Cosigned by [...] Denies chest pain or dyspnea. Discomfort at [facility] site with bruising on right neck. Feels a lot better. Awaiting nephro input. Subjective: Claudia Polo is a 75 y.o. female with a past medical history notable for hypertension, HFpEF, CAD s/p CABG 2020, hyperlipidemia, CKD 4, and diabetes who presents from [facility] cardiology clinic due to worsening dyspnea on [...] Value Ventricular Rate 74 Atrial Rate 74 OK Interval 168 QRS DURATION 68 QT Interval 410 QTC CALCULATION(BAZETT) 455 P Bainbridge 64 R-Bainbridge 15 T Wave Bainbridge 103 Impression Normal sinus rhythm Abnormal QRS-T [...] Bubble Study Result Date: 05/02/2025 1 1 [facility] Heart Station [address] [place] [address] [phone] (fax) Echocardiogram-[facility] Name: CLAUDIA POLO Study Date: 05/02/2025 07:57 AM B/P: 164 mmHg/64 mmHg HR: 72 bpm Date of : 1950 Location: [facility] Height: 56 in. Age: 75 year(s) [...] No pericardial effusion. Procedure Staff Reading Group: [facility] Referring Physician: JOHN PERDOMO Restaurant Line Cook: Jessica Bain [facility] Ordering Physician: EH HIGUERA No nuclear medicine [...] Agent, Strain, 3D, Bubble Study 1 1 [facility] Heart Station [address] [place] [address] [phone] (fax) Echocardiogram-[facility] Name: CLAUDIA POLO Study Date: 05/02/2025 07:57 AM B/P: 164 mmHg/64 mmHg HR: 72 bpm Date of : 1950 Location: [facility] Height: 56 in. Age: 75 year(s) [...] No pericardial effusion. Procedure Staff Reading Group: [facility] Referring Physician: JOHN PERDOMO Restaurant Line Cook: Jessica Bain [facility] Ordering Physician: EH HIGUERA Cardiac catheterization Cardiovascular [...] This was exchanged out for a 6 Bangladeshi 11 cm sheath. 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 Every effort was made to ensure accuracy. However, inadvertent computerized scientific programmer errors may be present. Seven Tapia MD PGY-2 Internal Medicine Cardiology Consult Service [facility] [1] Current Facility-Administered Medications: acetaminophen [...] from the original note were not included. Brandcast-7 Daily Progress Note - 05/02/2025 2:35 PM; Room: [address] [place] [address] Admission: 05/01/2025 5:55 PM; Length of stay: 1 days Code Status: Full Code Discharge Destination: TBD Discharge planning: TBD Overview Patient is seen for evaluation and management of heart failure exacerbation. Claudia Polo is an 75 y.o. female who came from [facility] with prior history of hypertension and [...] fever. She was advised to come to [facility] for CHF exacerbation. Subjective Patient was seen and examined at bedside. Afebrile, hemodynamically stable, starting well on 2 L per nasal cannula. Patient reports she does not use oxygen at home but believes it will help her with her daily functioning. Patient reports she was recently discharged from [facility] due to a CHF exacerbation. She [...] heart failure with preserved ejection fraction (HFpEF) ([facility]) Active Problems: Hypertensive disorder Stage 4 chronic kidney disease ([facility]) Type 2 diabetes mellitus ([facility]) Assessment and Plan Acute on chronic heart [...] TSH 4.54 05/02/2025 No results found for: UDSODZVW12 , IRON , TIBC , C3 , [...] Agent, Strain, 3D, Bubble Study 1 1 [facility] Heart Station [address] [place] [address] [phone] (fax) Echocardiogram-[facility] Name: CLAUDIA POLO Study Date: 05/02/2025 07:57 AM B/P: 164 mmHg/64 mmHg HR: 72 bpm Date of : 1950 Location: [facility] Height: 56 in. Age: 75 year(s) [...] No pericardial effusion. Procedure Staff Reading Group: [facility] Referring Physician: JOHN PERDOMO Restaurant Line Cook: HALLE Jacob Ordering Physician: EH HIGUERA Cardiac [...] This was exchanged out for a 6 Bangladeshi 11 cm sheath. Right heart catheterization was [...] Grey Johns MD Internal Medicine Resident, PGY1 [facility] Medicine 05/02/2025 2:35 PM Cosigned by [...] AM EDT Rickey Jackson MD, MPH, FACC, [facility], [facility] Interventional Cardiology Pager Email: [email or web address] Source Note - Bran Fish MD - 04/07/2025 3:00 PM EDT Images from the original note were not included. [facility] - [facility] Subjective Claudia Polo is a [...] Rfl: 3 ergocalciferol (Vitamin D-2) 1.25 MG (59184 UT) capsule, Take 1 capsule by mouth [...] two times daily. Coronary artery disease involving king salmon coronary artery of king salmon heart without angina pectoris Essential (primary) hypertension [...] AM THE HOSPITALIST TEAM PREFERS TO USE Recordant CHAT FOR NON-URGENT COMMUNICATION 7AM- 7PM. IF I DO NOT RESPOND WITHIN 20 MINUTES OR URGENT MATTERS, PLEASE CALL THROUGH THE REMEDIAL TEACHER. FROM 7PM-7AM, PLEASE PAGE [phone](COVR). Chief Complaint SOB History of Present Illness Claudia Polo is an 75 y.o. female who came from [facility] with prior history of hypertension and [...] fever. She was advised to come to [facility] for CHF exacerbation. Review of System [...] heart failure with preserved ejection fraction (HFpEF) ([facility]) Start Bumex 2mg IV BID Weigh patient daily Fluid restriction Cardiology consult NPO at midnight for possible right heart cath Hypertensive disorder Resume home medications Stage 4 chronic kidney disease ([facility]) Monitor kidney functions Avoid nephrotoxic drugs Appreciate nephrology recommendations Type 2 diabetes mellitus ([facility]) Glucose management protocol Sliding scale Hypoglycemia [...] this hospital stay by a member of [facility] Medicine. Past Medical History Medical History[1] [...] MAGNESIUM Imaging XR chest lateral decubitus Narrative: [facility] Department of Radiology [address] [place] [phone] Patien t Name: CLAUDIA POLO : [...] suggested Electronically signed: Marli Seo. Transcribed by: [id number], User Resident: Electronically Signed by: MARLI SEO @ 07/27/2020 01:07 PM Signed [facility] 05/02/2025 12:34 AM [1] Past Medical [...] tablet 3 ergocalciferol (Vitamin D-2) 1.25 MG (08731 UT) capsule Take 1 capsule by mouth [...] and essential hypertension who was admitted to [facility] as a transfer from [facility] on 05/01/2025 after she initially presented [...] Dose Status allopurinol (Zyloprim) 100 mg tablet [id number] TAKE 1 TABLET BY MOUTH ONCE DAILY FOR 90 DAYS Historical Provider, Active amLODIPine (Norvasc) 10 mg tablet [id number] TAKE 1 TABLET BY MOUTH EVERY DAY Bran Fish MD Active aspirin 81 mg EC tablet [id number] Take 1 tablet every day by oral route. Historical Provider, Active atorvastatin (Lipitor) 40 mg tablet [id number] TAKE 1 TABLET BY MOUTH EVERYDAY AT BEDTIME Bran Fish MD Active bumetanide (Bumex) 2 mg tablet [id number] Take 2 tablets (4 mg) by mouth two times daily. Patient taking differently: Take 2 mg by mouth in the morning. Bran Fish MD Active doxazosin (Cardura) 4 mg tablet [id number] TAKE 1 AND 1/2 TABLETS BY MOUTH TWICE A DAY Patient not taking: Reported on 05/01/2025 Bran Fish MD Active ergocalciferol (Vitamin D-2) 1.25 MG (53007 UT) capsule [id number] Take 1 capsule by mouth 1 (one) time per week. Historical ProviderMD Active ferrous sulfate 325 (65 Fe) MG tablet [id number] TAKE 1 TABLET BY MOUTH EVERY OTHER DAY FOR 90 DAYS Historical ProviderMD Active folic acid (Folvite) 1 mg tablet [id number] Take 1 mg by mouth in the morning. Historical ProviderMD Active hydrALAZINE (Apresoline) 50 mg tablet [id number] TAKE 1 TABLET BY MOUTH TWO TIMES DAILY. Patient taking differently: Take 50 mg by mouth four times daily. Emilia To CNP Active insulin glargine (Lantus) 100 unit/mL (3 mL) pen [id number] Inject under the skin. Patient taking differently: Inject under the skin if needed. Historical Provider, Active isosorbide mononitrate ER (Imdur) 30 mg 24 hr tablet [id number] Take 1 tablet (30 mg) by mouth once daily as directed. Do not crush or chew. Bran Fish MD Active levothyroxine (Synthroid, Levoxyl) 50 mcg tablet [id number] Take 1 tablet by mouth in the morning. Patient taking differently: Take 75 mcg by mouth in the morning. Historical ProviderMD Active metOLazone (Zaroxolyn) 2.5 mg tablet [id number] TAKE 1 TABLET BY MOUTH IF NEEDED FOR SWELLING OR WEIGHT GAIN Patient not taking: Reported on 05/01/2025 Bran Fish MD Active metoprolol tartrate (Lopressor) 50 mg tablet [id number] Take 1.5 tablets (75 mg) by mouth in the morning and at bedtime. Patient taking differently: Take 50 mg by mouth in the morning and at bedtime. Emilia To CNP Active midodrine (Proamatine) 5 mg tablet [id number] Take 1 tablet (5 mg) by mouth if needed (as needed for orthostatic hypotension). Patient not taking: Reported on 05/01/2025 Bran Fish MD Active nitroglycerin (Nitrostat) 0.4 mg SL tablet [id number] Place 1 tablet (0.4 mg) under the tongue every 5 (five) minutes if needed for chest pain. Bran Fish MD Active potassium chloride CR (Klor-Con M20) 20 mEq ER tablet [id number] Take 40 mEq by mouth in the [...] in the setting of CKD stage 4. Jwynh-lv-pagpbiu heart failure exacerbation. Triple-vessel CAD demonstrated on [...] you. Johnny Hines MD PGY-3, Internal Medicine [facility] [1] Allergies Allergen Reactions Erythromycin Other Erythromycin Base Hydromorphone Penicillins Hives Spironolactone Rash [2] Past Medical History: Diagnosis Date CHF (congestive heart failure) ([facility]) Chronic kidney disease Coronary artery disease Diabetes [...] the same date of service as resident/fellow Johnyn Hines MD. I discussed the findings and [...] Faculty, Division of Nephrology, Department of Medicine, [facility]. 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 [...] To reach the Clinical Dietitian, please utilize Recordant chat Monday-Monday from 8AM-4PM or call extension [phone]. For weekends (Monday-Monday) and holidays, the Clinical Dietitian can be reached via pager ([phone]) from 9AM-3PM. The Clinical Nutrition Department is unable to respond to Recordant chat messages on Sundays and s. [1] [...] CKD 4, and diabetes who presents from [facility] cardiology clinic due to worsening dyspnea on [...] medical history of CHF (congestive heart failure) ([facility]), Chronic kidney disease,Coronary artery disease, Diabetes mellitus ([facility]), and Hypertension. Surgical History She has a [...] times daily ergocalciferol (Vitamin D-2) 1.25 MG (81182 UT) capsule 1 capsule, Weekly ferrous sulfate [...] Imaging Results XR chest lateral decubitus Narrative: [facility] Department of Radiology [address] [place] [phone] Patien t Name: CLAUDIA POLO : 1950 Sex: F Age: Race: White^White Pt. Location: Patient Status: O Ordered Date: 07/27/2020 11:25:00 AM Completed Date: 07/27/2020 11:33 AM Requesting Provider: FREEDOM RING Attending Provider: FREEDOM RING Report Copy To: Signs & Symptoms: R05 Cough I10 History: Rosam Aria Comments: Exam: CHEST AND LATERAL CHEST AND [...] suggested Electronically signed: Marli Seo. Transcribed by: [email or web address], User Resident: Electronically Signed by: MARLI SEO [...] least in part, completed using a voice scientific programmer system. Every effort was made to ensure accuracy. However, inadvertent computerized scientific programmer errors may be present. Seven Tapia MD PGY-2 Internal Medicine Cardiology Consult Service [facility] [1] Medications Prior to Admission Medication Sig [...] tablet 3 ergocalciferol (Vitamin D-2) 1.25 MG (24835 UT) capsule Take 1 capsule by mouth [...] and behaviors that affect risk of falls [place] fall precautions as indicated by assessment Educate [...] Date/Time: 05/02/25929 Procedure: Right heart cath Location: [facility] BOX TOE BUFFER 2 BIPLANE / [facility] (Cath) Providers: Rickey Jackson MD [...] 11:12 AM EDT Rickey Jackson MD, MPH, [facility], [facility], [facility] Interventional Cardiology Pager Email: [email or web address] * Care Plan - [...] Plan of Treatment DateTypeDepartmentCare Team (Latest Contact Info)Rixfiprityh90/18/2025 10:00 AM ESTFollow-[facility] [place] [address] [place] [address] Emilia To CNP [address] [place] [address] NameTypePriorityAssociated DiagnosesOrder ScheduleCBCLabRoutine Chronic diastolic heart failure (CMS/HCC) Expected: 05/11/2025 (Approximate), Expires: 05/04/2026asic metabolic panelLab Routine Chronic diastolic heart failure (CMS/HCC) Expected: 05/04/2025 (Approximate), Expires: 05/04/2026NameTypePriority Associated DiagnosesOrder ScheduleAmbulatory referral to Cardiac RehabOutpatient ReferralRoutine Acute on chronic heart failure with preserved ejection fraction (HFpEF) ([facility]) Expected: 05/02/2025 (Approximate), Expires: 10/30/2025mbulatory referral to Cardiac RehabOutpatient ReferralRoutine Coronary arteriosclerosis Expected: 05/02/2025 (Approximate), Expires: 10/30/2025mbulatory referral to Primary CareOutpatient ReferralRoutine Chronic diastolic heart failure ([facility]) Expected: 05/11/2025 (Approximate), Expires: 10/31/2025mbulatory referral to NephrologyOutpatient ReferralRoutine Chronic diastolic heart failure ([facility]) Expected: 05/11/2025 (Approximate), Expires: 10/31/2025mbulatory referral to CardiologyOutpatient ReferralRoutine Chronic diastolic heart failure ([facility]) Expected: 05/11/2025 (Approximate), Expires: 10/31/2025documented as of this encounter Procedures Procedure NamePriorityDate/TimeAssociated DiagnosisCommentsPOCT GLUCOSE METER UNSOLICITED JIGNKWSMdurpgm89/02/2025 11:23 AM EST CBCPending Ykctlukxp59/02/2025 8:02 AM EST BASIC METABOLIC PANELPending Ccmvvoiea68/02/2025 8:02 AM EST POCT GLUCOSE METER UNSOLICITED ORRATSNWridrts28/01/2025 8:12 PM EDT POCT GLUCOSE METER UNSOLICITED JQYLVNXXyzjqfk95/01/2025 4:41 PM EDT PROTEIN, URINE, RANDOMPending Aaunwjnxv00/01/2025 3:01 PM EDT CREATININE, URINE, RANDOMPending Eevvlkyvb13/01/2025 3:01 PM EDT URINALYSIS MICROSCOPICPending Rpbpcevli52/01/2025 3:01 PM EDT URINALYSISPending Zmrwfbnpi64/01/2025 3:01 PM EDT HOME O2 EVAL (DESATURATION SCREEN)Dfwywpo0905/03/2025 12:19 PM EDTPOCT GLUCOSE METER UNSOLICITED NRQCSOLJchzzys55/01/2025 11:41 AM EDT POCT GLUCOSE METER UNSOLICITED JHJIRVFEptcliw29/01/2025 7:59 AM EDT CBCPending Qbtuybbjc96/01/2025 7:15 AM EDT PHOSPHORUSAdd-On05/03/2025 7:15 AM EDT PTH, INTACTAdd-On05/03/2025 7:15 AM EDT BASIC METABOLIC PANELPending Bwdigriha49/01/2025 7:15 AM EDT POCT GLUCOSE METER UNSOLICITED TLINSICMhysyll57/31/2025 8:10 PM EDT POCT GLUCOSE METER UNSOLICITED FSJOXGWYheiwqr58/31/2025 5:37 PM EDT XR CHEST 1 RAEIHrasriy73/31/2025 2:14 PM EDT POCT GLUCOSE METER UNSOLICITED DDIHMGGSvermyr80/31/2025 12:18 PM EDT RIGHT HEART PLBXGuefxth95/31/2025 11:44 AM EDT Acute on chronic heart failure with preserved ejection fraction (HFpEF) ([facility]) %YGK3Xvsanax17/31/2025 11:42 AM EDT ECG 12-PULIMiumbxk31/31/2025 9:14 AM EDT COMPLETE ECHO (TTE)Yhyqzmg2605/02/2025 8:30 AM EDT TSH3 REFLEX TO IE5Eoc-Ks40/31/2025 5:46 AM EDT IRON AND TIBCAdd-On05/02/2025 5:46 AM EDT RETICULOCYTE PANELAdd-On05/02/2025 5:46 AM EDT VVKAubvmtt86/31/2025 5:46 AM EDT FOLATEAdd-On05/02/2025 5:46 AM EDT FERRITINAdd-On05/02/2025 5:46 AM EDT VITAMIN R96Cct-Sw52/31/2025 5:46 AM EDT BASIC METABOLIC GGZJWKcktbjb73/31/2025 5:46 AM EDT UHRXHRP5805/02/2025 12:24 AM EDT B-TYPE NATRIURETIC UXRCRJNIAXC21/31/2025 12:24 AM EDT TOWRFKTGMATFR11/31/2025 12:24 AM EDT BASIC METABOLIC JIHGFLTPS94/31/2025 12:24 AM EDT documented in this encounter Results * (ABNORMAL) POCT glucose meter (05/04/2025 11:23 AM EST)ComponentValueRef Range Test MethodAnalysis TimePerformed AtPathologist SignatureGlucose VQZ256(H)70 - 105 mg/dL05/04/2025 11:35 AM [facility] ([place])Comment:jarizme Specimen (Source)Anatomical Location / LateralityCollection Method / Volume Collection TimeReceived TimeBloodCapillary blood specimen / Exmurch4805/04/2025 11:23 AM EST05/04/2025 11:35 AM EST Narrative [facility] ([facility]) - 05/04/2025 11:35 AM EST Waived Testing in the ED is performed under the ED CLIA certificate #[id number]. Authorizing ProviderResult TypeResult StatusEh SNEED BLOOD ORDERABLESFinal ResultPerforming OrganizationAddressCity/State/ZIP CodePhone Number [facility] ([facility]) [address] [place] [address] * (ABNORMAL) Basic metabolic panel (05/04/2025 8:02 AM EST)ComponentValueRef RangeTest MethodAnalysis TimePerformed AtPathologist PmqktkawoYidfjw353695 - 145 mmol/L107/04/2024 8:41 AM [facility] ([facility])Potassium4.03.5 - 5.1 mmol/L107/04/2024 8:41 AM [facility] ([facility])Lhwyrmvx28533 - 107 mmol/L107/04/2024 8:41 AM [facility] ([facility])FF75541 - 31 mmol/L 05/04/2025 8:41 AM [facility] ([facility])BUN64(H)7 - 25 mg/dL05/04/2025 8:41 AM [facility] ([facility])Creatinine2.55(H)0.60 - 1.20 mg/dL 05/04/2025 8:41 AM [facility] ([facility])Fmwtoge201(H)70 - 100 mg/dL 05/04/2025 8:41 AM [facility] ([facility])Calcium8.68.6 - 10.3 mg/dL 05/04/2025 8:41 AM [facility] ([facility])Anion Fng843 - 20 mmol/L 05/04/2025 8:41 AM [facility] ([facility])eGFR19.2(L)>60.0 mL/min/1.73m* 8:41 AM [facility] ([facility])Comment:The [facility]???s estimated glomerular filtration rate (eGFR) [...] one group of individuals.BUN/Creatinine Ratio25. 8:41 AM [facility] ([facility])Specimen (Source)Anatomical Location / LateralityCollection Method / VolumeCollection TimeReceived TimeBloodVenous blood specimen / Unknown Venipuncture / Hhoiupu9105/04/2025 8:02 AM EST05/04/2025 8:15 AM EST Narrative Authorizing ProviderResult TypeResult StatusNicchelsea Higuera MDLAB BLOOD ORDERABLESFinal ResultPerforming OrganizationAddressCity/State/ZIP CodePhone Number [facility] ([facility]) [address] [place] [address] * (ABNORMAL) CBC (05/04/2025 8:02 AM EST)ComponentValueRef RangeTest Method Analysis TimePerformed AtPathologist SignatureAuto WBC8.264.00 - 10.60 10*3/uL 05/04/2025 8:28 AM [facility] ([facility])RBC2.89(L)3.80 - 5.00 10*6/uL 05/04/2025 8:28 AM [facility] ([facility])Hemoglobin8.6(L)12.0 - 15.0 g/dL05/04/2025 8:28 AM [facility] ([facility])Beutbacgie44.0(L)36.0 - 45.0 %05/04/2025 8:28 AM [facility] ([facility])MCV90.082.0 - 98.0 fL 05/04/2025 8:28 AM [facility] ([facility])MCH29.827.0 - 33.0 pg 05/04/2025 8:28 AM [facility] ([facility])MCHC33.132.0 - 35.0 g/dL 05/04/2025 8:28 AM [facility] ([facility])RDW15.6(H)11.5 - 15.0 % 05/04/2025 8:28 AM [facility] ([facility])Imuqlqdaw154222 - 400 10*3/uL 05/04/2025 8:28 AM [facility] ([facility])Specimen (Source)Anatomical Location / LateralityCollection Method / VolumeCollection TimeReceived Time BloodVenous blood specimen / UnknownVenipuncture / Waigjkb3605/04/2025 8:02 AM EST05/04/2025 8:16 AM EST Narrative Authorizing ProviderResult TypeResult StatusEh Higuera MDLAF[facility] BLOOD ORDERABLESFinal ResultPerforming OrganizationAddressCity/State/ZIP CodePhone Number [facility]) [address] [place] [address] * (ABNORMAL) POCT glucose meter (05/03/2025 8:12 PM EDT)ComponentValueRef Range Test MethodAnalysis TimePerformed AtPathologist SignatureGlucose TYB227(H)70 - 105 mg/dL05/03/2025 8:24 PM [facility] ([facility])Comment: Specimen (Source)Anatomical Location / LateralityCollection Method / Volume Collection TimeReceived TimeBloodCapillary blood specimen / Gomiosv8205/03/2025 8:12 PM EDT107/03/2024 8:24 PM EDT Narrative [facility] ([facility]) - 05/03/2025 8:24 PM EDT Waived Testing in the ED is performed under the ED CLIA certificate #[id number]. Authorizing ProviderResult TypeResult StatusEh Higuera MDLA[facility] BLOOD ORDERABLESFinal ResultPerforming OrganizationAddressCity/State/ZIP CodePhone Number [facility] ([facility]) [address] [place] [address] * (ABNORMAL) POCT glucose meter (05/03/2025 4:41 PM EDT)ComponentValueRef Range Test MethodAnalysis TimePerformed AtPathologist SignatureGlucose GKD349(H)70 - 105 mg/dL05/03/2025 4:59 PM [facility] ([facility])Comment:[email or web address] Specimen (Source)Anatomical Location / LateralityCollection Method / Volume Collection TimeReceived TimeBloodCapillary blood specimen / Gknhgip5905/03/2025 4:41 PM EDT107/03/2024 4:59 PM EDT Narrative [facility] ([facility]) - 05/03/2025 4:59 PM EDT Waived Testing in the ED is performed under the ED CLIA certificate #[id number]. Authorizing ProviderResult TypeResult StatusEh SNEED BLOOD ORDERABLESFinal ResultPerforming OrganizationAddressCity/State/ZIP CodePhone Number [facility] ([facility]) [address] [place] [address] * (ABNORMAL) Urinalysis microscopic (05/03/2025 3:01 PM EDT)ComponentValueRef RangeTest MethodAnalysis TimePerformed AtPathologist SignatureRBC, Urine3-5(A) None Seen, 0-2 /HPF05/03/2025 3:25 PM [facility] ([facility])WBC, Urine 0-2None Seen, 0-2 /HPF05/03/2025 3:25 PM [facility] ([facility])Squamous Epithelial, UrineFewNone Seen, Occasional, Few /LPF107/03/2024 3:25 PM [facility] ([facility])Mucus, UrineOccasionalNone Seen, Occasional, Few /LPF 05/03/2025 3:25 PM [facility] ([facility])Specimen (Source)Anatomical Location / LateralityCollection Method / VolumeCollection TimeReceived Time UrineUrine specimen obtained by clean catch procedure / UnknownNon-blood Collection / Euihxww3305/03/2025 3:01 PM EDT107/03/2024 3:10 PM EDT Narrative Authorizing ProviderResult TypeResult StatusJazzmine SNEED URINE ORDERABLESFinal ResultPerforming OrganizationAddressCity/State/ZIP CodePhone Number [facility] ([facility]) [address] [place] [address] * (ABNORMAL) Urinalysis (05/03/2025 3:01 PM EDT)ComponentValueRef RangeTest MethodAnalysis TimePerformed AtPathologist SignatureColor, UrineLight-Yellow Colorless, Yellow, Light-Qzurpu2005/03/2025 3:25 PM [facility] ([facility])Clarity, QzjctKxlqjQnfdz94/01/2025 3:25 PM [facility] ([facility])pH, Urine5.05.0 - 8.0 pH05/03/2025 3:25 PM [facility] ([facility])Leukocytes, HcjtgKospzgziRgjzlzbf36/01/2025 3:25 PM [facility] ([facility])Nitrite, CtpirHepcukgoSexbmtwp64/01/2025 3:25 PM [facility] ([facility])Protein, Urine30(A)Negative mg/dL05/03/2025 3:25 PM [facility] ([facility])Glucose, UrineNormalNormal mg/dL05/03/2025 3:25 PM EDT [facility] ([facility])Bilirubin, VpnzxXwzotfptKcqvlnzg35/01/2025 3:25 PM [facility] ([facility])Specific Guy, Urine1.008(L)1.010 - 1.030 05/03/2025 3:25 PM [facility] ([facility])Ketones, UrineNegativeNegative mg/dL05/03/2025 3:25 PM [facility] ([facility])Blood, UrineNegative Eyjhwpxk84/01/2025 3:25 PM [facility] ([facility])Urobilinogen, Urine NormalNormal mg/dL05/03/2025 3:25 PM [facility] ([facility])Specimen (Source)Anatomical Location / LateralityCollection Method / VolumeCollection TimeReceived TimeUrineUrine specimen obtained by clean catch procedure / UnknownNon-blood Collection / Nanxqbe1305/03/2025 3:01 PM EDT107/03/2024 3:10 PM EDT Narrative Authorizing ProviderResult TypeResult StatusMuhammakevon SNEED URINE ORDERABLESFinal ResultPerforming OrganizationAddressCity/State/ZIP CodePhone Number [facility] ([facility]) [address] [place] [address] * Creatinine, urine, random (05/03/2025 3:01 PM EDT)ComponentValueRef RangeTest MethodAnalysis TimePerformed AtPathologist SignatureCreatinine, Ur40.026 - 299 mg/dL05/03/2025 3:31 PM [facility] ([facility])Specimen (Source) Anatomical Location / LateralityCollection Method / VolumeCollection Time Received TimeUrineUrine specimen obtained by clean catch procedure / Unknown Non-blood Collection / Cshqzku9305/03/2025 3:01 PM EDT107/03/2024 3:10 PM EDT Narrative Authorizing ProviderResult TypeResult StatusJazzmine SNEED URINE ORDERABLESFinal ResultPerforming OrganizationAddressty/State/ZIP CodePhone Number [facility]) [address] [place] [address] * Protein, urine, random (05/03/2025 3:01 PM EDT)ComponentValueRef RangeTest MethodAnalysis TimePerformed AtPathologist SignatureProtein, Ur105.9mg/dL 05/03/2025 3:31 PM [facility] ([facility])Comment:There are no established reference values for random urine specimens.Specimen (Source) Anatomical Location / LateralityCollection Method / VolumeCollection Time Received TimeUrineUrine specimen obtained by clean catch procedure / Unknown Non-blood Collection / Flbelwu6205/03/2025 3:01 PM EDT107/03/2024 3:10 PM EDT Narrative Authorizing ProviderResult TypeResult StatusJazzmine SNEED URINE ORDERABLESFinal ResultPerforming OrganizationAddressty/State/ZIP CodePhone Number [facility]) [address] [place] [address] * (ABNORMAL) POCT glucose meter (05/03/2025 11:41 AM EDT)ComponentValueRef Range Test MethodAnalysis TimePerformed AtPathologist SignatureGlucose PDT240(H)70 - 105 mg/dL05/03/2025 12:01 PM [facility] ([facility])Comment:spegish3 Specimen (Source)Anatomical Location / LateralityCollection Method / Volume Collection TimeReceived TimeBloodCapillary blood specimen / Tfhpaec1005/03/2025 11:41 AM EDT107/03/2024 12:01 PM EDT Narrative [facility] ([facility]) - 05/03/2025 12:01 PM EDT Waived Testing in the ED is performed under the ED CLIA certificate #[id number]. Authorizing ProviderResult TypeResult Meliton SNEED BLOOD ORDERABLESFinal ResultPerforming OrganizationAddressCity/State/ZIP CodePhone Number [facility]) [address] [place] [address] * (ABNORMAL) POCT glucose meter (05/03/2025 7:59 AM EDT)ComponentValueRef Range Test MethodAnalysis TimePerformed AtPathologist SignatureGlucose DWQ259(H)70 - 105 mg/dL05/03/2025 8:12 AM [facility] ([facility])Comment:spegish3 Specimen (Source)Anatomical Location / LateralityCollection Method / Volume Collection TimeReceived TimeBloodCapillary blood specimen / Qullgjs7205/03/2025 7:59 AM EDT107/03/2024 8:12 AM EDT Narrative [facility] ([facility]) - 05/03/2025 8:12 AM EDT Waived Testing in the ED is performed under the ED CLIA certificate #[id number]. Authorizing ProviderResult TypeResult StatusEh SNEED BLOOD ORDERABLESFinal ResultPerforming OrganizationAddressCity/State/ZIP CodePhone Number [facility]) [address] [place] [address] * (ABNORMAL) PTH, intact (05/03/2025 7:15 AM EDT)ComponentValueRef RangeTest MethodAnalysis TimePerformed AtPathologist NhiyyjgeuPTT157(H)12 - 88 pg/mL 05/03/2025 1:53 PM [facility] ([facility])Specimen (Source)Anatomical Location / LateralityCollection Method / VolumeCollection TimeReceived Time BloodVenous blood specimen / UnknownVenipuncture / Fdjewey3005/03/2025 7:15 AM EDT107/03/2024 7:40 AM EDT Narrative Authorizing ProviderResult TypeResult Linda SNEED BLOOD ORDERABLESFinal ResultPerforming OrganizationAddressCity/State/ZIP CodePhone Number [facility]) [address] [place] [address] * Phosphorus (05/03/2025 7:15 AM EDT)ComponentValueRef RangeTest MethodAnalysis TimePerformed AtPathologist SignaturePhosphorus4.22.5 - 5.0 mg/dL05/03/2025 1:33 PM [facility] ([facility])Specimen (Source)Anatomical Location / LateralityCollection Method / VolumeCollection TimeReceived TimeBloodVenous blood specimen / UnknownVenipuncture / Rqwzuuy7005/03/2025 7:15 AM EDT107/03/2024 7:40 AM EDT Narrative Authorizing ProviderResult TypeResult StatusMuhamargelia SNEED BLOOD ORDERABLESFinal ResultPerforming OrganizationAddressCity/State/ZIP CodePhone Number [facility]) [address] [place] [address] * (ABNORMAL) Basic metabolic panel (05/03/2025 7:15 AM EDT)ComponentValueRef RangeTest MethodAnalysis TimePerformed AtPathologist NkwrviyzrPxhazz987235 - 145 mmol/L107/03/2024 8:05 AM [facility] ([facility])Potassium4.03.5 - 5.1 mmol/L107/03/2024 8:05 AM [facility] ([facility])Vdeubfxf795(H)98 - 107 mmol/L107/03/2024 8:05 AM [facility] ([facility])CO220(L)21 - 31 mmol/L107/03/2024 8:05 AM [facility] ([facility])BUN61(H)7 - 25 mg/dL 05/03/2025 8:05 AM [facility] ([facility])Creatinine2.76(H)0.60 - 1.20 mg/dL05/03/2025 8:05 AM [facility] ([facility])Fwzjkoh567(H)70 - 100 mg/dL05/03/2025 8:05 AM [facility] ([facility])Calcium8.68.6 - 10.3 mg/dL05/03/2025 8:05 AM [facility] ([facility])Anion Xov637 - 20 mmol/L 05/03/2025 8:05 AM [facility] ([facility])eGFR17.5(L)>60.0 mL/min/1.73m* 8:05 AM [facility] ([facility])Comment:[facility]???s estimated glomerular filtration rate (eGFR) [...] one group of individuals.BUN/Creatinine Ratio22. 8:05 AM [facility] ([facility])Specimen (Source)Anatomical Location / LateralityCollection Method / VolumeCollection TimeReceived TimeBloodVenous blood specimen / Unknown Venipuncture / Jnwlyxc6305/03/2025 7:15 AM EDT107/03/2024 7:40 AM EDT Narrative Authorizing ProviderResult TypeResult StatusNicchelsea Higuera MDLAB BLOOD ORDERABLESFinal ResultPerforming OrganizationAddressCity/State/ZIP CodePhone Number [facility] ([facility]) [address] [place] [address] * (ABNORMAL) CBC (05/03/2025 7:15 AM EDT)ComponentValueRef RangeTest Method Analysis TimePerformed AtPathologist SignatureAuto WBC9.334.00 - 10.60 10*3/uL 05/03/2025 7:49 AM [facility] ([facility])RBC2.96(L)3.80 - 5.00 10*6/uL 05/03/2025 7:49 AM [facility] ([facility])Hemoglobin8.8(L)12.0 - 15.0 g/dL05/03/2025 7:49 AM [facility] ([facility])Lyowjyhwdt95.5(L)36.0 - 45.0 %05/03/2025 7:49 AM [facility] ([facility])MCV89.582.0 - 98.0 fL 05/03/2025 7:49 AM [facility] ([facility])MCH29.727.0 - 33.0 pg 05/03/2025 7:49 AM [facility] ([facility])MCHC33.232.0 - 35.0 g/dL 05/03/2025 7:49 AM [facility] ([facility])RDW15.5(H)11.5 - 15.0 % 05/03/2025 7:49 AM [facility] ([facility])Gfsxuaoxm749295 - 400 10*3/uL 05/03/2025 7:49 AM [facility] ([facility])Specimen (Source)Anatomical Location / LateralityCollection Method / VolumeCollection TimeReceived Time BloodVenous blood specimen / UnknownVenipuncture / Znjpbdk2905/03/2025 7:15 AM EDT107/03/2024 7:41 AM EDT Narrative Authorizing ProviderResult TypeResult StatusEh Higuera MDLAB BLOOD ORDERABLESFinal ResultPerforming OrganizationAddressCity/State/ZIP CodePhone Number [facility] ([facility]) [address] [place] [phone] * (ABNORMAL) POCT glucose meter (05/02/2025 8:10 PM EDT)ComponentValueRef Range Test MethodAnalysis TimePerformed AtPathologist SignatureGlucose PCG163(H)70 - 105 mg/dL05/02/2025 8:35 PM [facility] ([facility])Comment:dchilds2 Specimen (Source)Anatomical Location / LateralityCollection Method / Volume Collection TimeReceived TimeBloodCapillary blood specimen / Owbttpu5905/02/2025 8:10 PM EDT1 8:35 PM EDT Narrative [facility] ([facility]) - 05/02/2025 8:35 PM EDT Waived Testing in the ED is performed under the ED CLIA certificate #[id number]. Authorizing ProviderResult TypeResult StatusEh SNEED BLOOD ORDERABLESFinal ResultPerforming OrganizationAddressCity/State/ZIP CodePhone Number [facility] ([facility]) [address] [place] [address] * (ABNORMAL) POCT glucose meter (05/02/2025 5:37 PM EDT)ComponentValueRef Range Test MethodAnalysis TimePerformed AtPathologist SignatureGlucose EKD544(H)70 - 105 mg/dL05/02/2025 5:49 PM [facility] ([facility])Comment:asavill Specimen (Source)Anatomical Location / LateralityCollection Method / Volume Collection TimeReceived TimeBloodCapillary blood specimen / Rqzsinz6205/02/2025 5:37 PM EDT1 5:49 PM EDT Narrative [facility] ([facility]) - 05/02/2025 5:49 PM EDT Waived Testing in the ED is performed under the ED CLIA certificate #[id number]. Authorizing ProviderResult TypeResult StatusEh SNEED BLOOD ORDERABLESFinal ResultPerforming OrganizationAddressCity/State/ZIP CodePhone Number [facility] ([facility]) [address] [place] [address] * XR chest 1 view (05/02/2025 2:14 [...] EDT)ComponentValueRef Range Test MethodAnalysis TimePerformed AtPathologist SignatureGlucose SIS033(H)70 - 105 mg/dL05/02/2025 12:29 PM [facility] ([facility])Comment:isegura2 Specimen (Source)Anatomical Location / LateralityCollection Method / Volume Collection TimeReceived TimeBloodCapillary blood specimen / Nvyueji9305/02/2025 12:18 PM EDT1 12:29 PM EDT Narrative [facility] ([facility]) - 05/02/2025 12:29 PM EDT Waived Testing in the ED is performed under the ED CLIA certificate #[id number]. Authorizing ProviderResult TypeResult Meliton Higuera MDLAB BLOOD ORDERABLESFinal ResultPerforming OrganizationAddressCity/State/ZIP CodePhone Number [facility] ([facility]) [address] [place] [address] * RIGHT HEART CATH (05/02/2025 11:44 AM [...] ??This was exchanged out for a 6 Bangladeshi 11 cm sheath. Right heart catheterization was [...] ??He was to be transferred to the [facility] area in stable condition. FINDINGS: ?? Hemodynamics: RA 16 RV ??56/9, 15 PA ??56/27 [42] PCWP 31 TPG ??11 AO ??161/58 [98] Cardiac output /cardiac index 5.00/3.29 AO sat /PA sat 95%/64% INDICATIONS: Acute on chronic heart failure with preserved ejection fraction Authorizing ProviderResult TypeResult StatusGeorge Moukarbel [facility] CARDIAC CATH PROCEDURESFinal Result * (ABNORMAL) %HbO2 (05/02/2025 11:42 AM EDT)ComponentValueRef RangeTest Method Analysis TimePerformed AtPathologist ZywiyidptV9Tl%64.1(L)90.0 - 95.0 % 05/02/2025 11:42 AM [facility] ([facility])Specimen (Source)Anatomical Location / LateralityCollection Method / VolumeCollection TimeReceived Time BloodVenous blood specimen / Gqimsho4205/02/2025 11:42 AM EDT1 11:42 AM EDT Narrative Authorizing ProviderResult TypeResult StatusNicchelsea SNEED POINT OF CARE TEST DOCKED DEVICE UNSOLICITED RESULTSFinal ResultPerforming Organization AddressCity/State/ZIP CodePhone Number [facility] ([facility]) [address] [place] [address] * ECG 12 lead (05/02/2025 9:14 AM EDT)ComponentValueRef RangeTest MethodAnalysis TimePerformed AtPathologist SignatureVentricular Uoel83WJZFS MUSEAtrial Rate 74BPMGE MUSEPR Dnrbopuh459wsQP MUSEQRS XMZQJADI75zeFF MUSEQT Vachbvea876ryZR MUSEQTC CALCULATION(BAZETT)455msGE MUSEP Phcy34digcyarTB MUSER-Wjtf58wxqeijnQJ MUSET Wave Odka540cvvxhmqCL MUSESpecimen (Source)Anatomical Location / LateralityCollection Method / [...] Narrative 05/02/2025 12:21 PM EDT 1 1 [facility] [address] [place] [address] [phone] (fax) Echocardiogram-[facility] Name: CLAUDIA POLO Study Date: 05/02/2025 07:57 AM B/P: 164 mmHg/64 mmHg HR: 72 bpm Date of : 1950 Location: [facility] Height: 56 in. Age: 75 year(s) [...] No pericardial effusion. Procedure Staff Reading Group: [facility] Referring Physician: JOHN PERDOMO ??Restaurant Line Cook: HALLE Jacob Ordering Physician: EH HIGUERA ?? Procedure Note Arturo Baker MD - 05/02/2025 1 1 [facility] [address] [place] [address] [phone] (fax) Echocardiogram-[facility] Name: CLAUDIA POLO Study Date: 05/02/2025 07:57 AM B/P: 164 mmHg/64 mmHg HR: 72 bpm Date of : 1950 Location: [facility] Height: 56 in. Age: 75 year(s) [...] No pericardial effusion. Procedure Staff Reading Group: [facility] Referring Physician: JOHN PERDOMO Restaurant Line Cook: Jessica Bain [facility] Ordering Physician: EH HIGUERA Authorizing ProviderResult TypeResult StatusEh Higuera MDCV ECHO PROCEDURESFinal Result * (ABNORMAL) Reticulocyte panel (05/02/2025 5:46 AM EDT)ComponentValueRef Range Test MethodAnalysis TimePerformed AtPathologist SignatureRetic Ct Abs0.1054(H) 0.0250 - 0.1000 10*6/uL05/02/2025 6:17 PM [facility] ([facility])Retic Ct Pct3.50(H)0.50 - 1.80 %05/02/2025 6:17 PM [facility] ([facility]) Immature Reticulocyte Fraction %22.4(H)2 - 16 %05/02/2025 6:17 PM [facility] ([facility])Reticulocyte Gbihrgbceq96.928.0 - 36.0 pg05/02/2025 6:17 PM [facility] ([facility])Specimen (Source)Anatomical Location / LateralityCollection Method / VolumeCollection TimeReceived TimeBloodVenous blood specimen / UnknownVenipuncture / Olwgllz2405/02/2025 5:46 AM EDT1 6:09 AM EDT Narrative Authorizing ProviderResult TypeResult Meliton Higuera [facility] BLOOD ORDERABLESFinal ResultPerforming OrganizationAddressCity/State/ZIP CodePhone Number [facility] ([facility]) [address] [place] [address] * (ABNORMAL) Iron and TIBC (05/02/2025 5:46 AM EDT)ComponentValueRef RangeTest MethodAnalysis TimePerformed AtPathologist LtnswcfflHntj2227 - 212 ug/dL 05/02/2025 6:25 PM [facility] ([facility])ICZP301(L)250 - 450 ug/dL 05/02/2025 6:25 PM [facility] ([facility])Iron Bzdiozirbs5425 - 50 % 05/02/2025 6:25 PM [facility] ([facility])AGRX064.0155.0 - 355.0 ug/dL 05/02/2025 6:25 PM [facility] ([facility])Specimen (Source)Anatomical Location / LateralityCollection Method / VolumeCollection TimeReceived Time BloodVenous blood specimen / UnknownVenipuncture / Uhfyeve8105/02/2025 5:46 AM EDT1 6:07 AM EDT Narrative Authorizing ProviderResult TypeResult Meliton SNEED BLOOD ORDERABLESFinal ResultPerforming OrganizationAddressCity/State/ZIP CodePhone Number [facility]) [address] [place] [address] * Ferritin (05/02/2025 5:46 AM EDT)ComponentValueRef RangeTest MethodAnalysis TimePerformed AtPathologist RecnewkeePsiimvvh949.011.0 - 307.0 ng/mL05/02/2025 6:48 PM [facility])Specimen (Source)Anatomical Location / LateralityCollection Method / VolumeCollection TimeReceived TimeBloodVenous blood specimen / UnknownVenipuncture / Ibzfbei0705/02/2025 5:46 AM EDT1 6:07 AM EDT Narrative Authorizing ProviderResult TypeResult Meliton SNEED BLOOD ORDERABLESFinal ResultPerforming OrganizationAddressCity/State/ZIP CodePhone Number [facility]) [address] [place] [address] * Vitamin B12 (05/02/2025 5:46 AM EDT)ComponentValueRef RangeTest MethodAnalysis TimePerformed AtPathologist SignatureVitamin B-09301196 - 914 pg/mL05/02/2025 6:48 PM [facility])Comment: REFERENCE RANGES: 180-914 pg/mL ??Normal 145-179 pg/mL ??Indeterminate <145 pg/mL Deficient Specimen (Source)Anatomical Location / LateralityCollection Method / Volume Collection TimeReceived TimeBloodVenous blood specimen / UnknownVenipuncture / Dnrcwjs8205/02/2025 5:46 AM EDT1 6:07 AM EDT Narrative Authorizing ProviderResult TypeResult Meliton SNEED BLOOD ORDERABLESFinal ResultPerforming OrganizationAddressCity/State/ZIP CodePhone Number [facility] ([facility]) [address] [place] [address] * Folate (05/02/2025 5:46 AM EDT)ComponentValueRef RangeTest MethodAnalysis Time Performed AtPathologist TbcmbbiozIdlrng70.266.6 - 1,000 ng/mL05/02/2025 6:48 PM [facility] ([facility])Specimen (Source)Anatomical Location / LateralityCollection Method / VolumeCollection TimeReceived TimeBloodVenous blood specimen / UnknownVenipuncture / Kvlzptw9405/02/2025 5:46 AM EDT1 6:07 AM EDT Narrative Authorizing ProviderResult TypeResult StatusEh SNEED BLOOD ORDERABLESFinal ResultPerforming OrganizationAddressCity/State/ZIP CodePhone Number [facility]) [address] [place] [address] * TSH3 Reflex to FT4 (05/02/2025 5:46 AM EDT)ComponentValueRef RangeTest Method Analysis TimePerformed AtPathologist SignatureTSH4.540.34 - 5.60 mIU/L 05/02/2025 2:16 PM [facility] ([facility])Specimen (Source)Anatomical Location / LateralityCollection Method / VolumeCollection TimeReceived Time BloodVenous blood specimen / UnknownVenipuncture / Iwipzrq9605/02/2025 5:46 AM EDT1 6:07 AM EDT Narrative Authorizing ProviderResult TypeResult StatusEh SNEED BLOOD ORDERABLESFinal ResultPerforming OrganizationAddressCity/State/ZIP CodePhone Number [facility]) [address] [place] [address] * (ABNORMAL) CBC (05/02/2025 5:46 AM EDT)ComponentValueRef RangeTest Method Analysis TimePerformed AtPathologist SignatureAuto WBC10.61(H)4.00 - 10.60 10*3/uL05/02/2025 6:52 AM [facility])RBC3.04(L)3.80 - 5.00 10*6/uL05/02/2025 6:52 AM [facility] ([facility])Hemoglobin9.0(L)12.0 - 15.0 g/dL05/02/2025 6:52 AM [facility] ([facility])Dsvzeworge34.9(L)36.0 - 45.0 %05/02/2025 6:52 AM [facility] ([facility])MCV88.582.0 - 98.0 fL 05/02/2025 6:52 AM [facility] ([facility])MCH29.627.0 - 33.0 pg 05/02/2025 6:52 AM [facility] ([facility])MCHC33.532.0 - 35.0 g/dL 05/02/2025 6:52 AM [facility] ([facility])RDW15.3(H)11.5 - 15.0 % 05/02/2025 6:52 AM [facility] ([facility])Qhemkzmnr832601 - 400 10*3/uL 05/02/2025 6:52 AM [facility] ([facility])Specimen (Source)Anatomical Location / LateralityCollection Method / VolumeCollection TimeReceived Time BloodVenous blood specimen / UnknownVenipuncture / Ubtcjzc3705/02/2025 5:46 AM EDT1 6:09 AM EDT Narrative Authorizing ProviderResult TypeResult StatusMalMadera Community Hospital BLOOD ORDERABLESFinal ResultPerforming OrganizationAddressCity/State/ZIP CodePhone Number [facility] ([facility]) [address] [place] [address] * (ABNORMAL) Basic metabolic panel (05/02/2025 5:46 AM EDT)ComponentValueRef RangeTest MethodAnalysis TimePerformed AtPathologist ZskdyraynPrhuhf202932 - 145 mmol/L1 6:30 AM [facility] ([facility])Potassium3.93.5 - 5.1 mmol/L1 6:30 AM [facility] ([facility])Sjlkcvpz371(H)98 - 107 mmol/L1 6:30 AM [facility] ([facility])[id number] - 31 mmol/L 05/02/2025 6:30 AM [facility] ([facility])BUN60(H)7 - 25 mg/dL05/02/2025 6:30 AM [facility] ([facility])Creatinine2.77(H)0.60 - 1.20 mg/dL 05/02/2025 6:30 AM [facility] ([facility])Tmnmcam943(H)70 - 100 mg/dL 05/02/2025 6:30 AM [facility] ([facility])Calcium8.68.6 - 10.3 mg/dL 05/02/2025 6:30 AM [facility] ([facility])Anion Zkl557 - 20 mmol/L 05/02/2025 6:30 AM [facility] ([facility])eGFR17.4(L)>60.0 mL/min/1.73m* 6:30 AM [facility] ([facility])Comment:[facility]???s estimated glomerular filtration rate (eGFR) [...] one group of individuals.BUN/Creatinine Ratio21. 6:30 AM [facility] ([facility])Specimen (Source)Anatomical Location / LateralityCollection Method / VolumeCollection TimeReceived TimeBloodVenous blood specimen / Unknown Venipuncture / Usegfkt8005/02/2025 5:46 AM EDT1 6:07 AM EDT Narrative Authorizing ProviderResult TypeResult StatusOsaMadera Community Hospital BLOOD ORDERABLESFinal ResultPerforming OrganizationAddressCity/State/ZIP CodePhone Number [facility] ([facility]) [address] [place] [address] * Magnesium (05/02/2025 12:24 AM EDT)ComponentValueRef RangeTest MethodAnalysis TimePerformed AtPathologist SignatureMagnesium2.11.9 - 2.7 mg/dL05/02/2025 1:00 AM [facility] ([facility])Specimen (Source)Anatomical Location / LateralityCollection Method / VolumeCollection TimeReceived TimeBloodVenous blood specimen / UnknownVenipuncture / Vxgvrxz3705/02/2025 12:24 AM EDT 05/02/2025 12:37 AM EDT Narrative Authorizing ProviderResult TypeResult StatusMalyovani [facility] BLOOD ORDERABLESFinal ResultPerforming OrganizationAddressCity/State/ZIP CodePhone Number [facility] ([facility]) [address] [place] [address] * (ABNORMAL) B-type natriuretic peptide (05/02/2025 12:24 AM EDT)ComponentValue Ref RangeTest MethodAnalysis TimePerformed AtPathologist SignatureBNP1,236(H)0 - 100 pg/mL05/02/2025 1:10 AM [facility] ([facility])Specimen (Source) Anatomical Location / LateralityCollection Method / VolumeCollection Time Received TimeBloodVenous blood specimen / UnknownVenipuncture / Unknown 05/02/2025 12:24 AM EDT1 12:33 AM EDT Narrative Authorizing ProviderResult TypeResult StatusMalyovani Patel [facility] BLOOD ORDERABLESFinal ResultPerforming OrganizationAddressCity/State/ZIP CodePhone Number [facility] ([facility]) [address] [place] [address] * (ABNORMAL) Basic metabolic panel (05/02/2025 12:24 AM EDT)ComponentValueRef RangeTest MethodAnalysis TimePerformed AtPathologist WxfkugbdiIkiahc537952 - 145 mmol/L1 1:00 AM [facility] ([facility])Potassium3.93.5 - 5.1 mmol/L1 1:00 AM [facility] ([facility])Komodzbo14506 - 107 mmol/L1 1:00 AM [facility] ([facility])CE71072 - 31 mmol/L 05/02/2025 1:00 AM [facility] ([facility])BUN58(H)7 - 25 mg/dL05/02/2025 1:00 AM [facility] ([facility])Creatinine2.85(H)0.60 - 1.20 mg/dL 05/02/2025 1:00 AM [facility] ([facility])Syeaqet492(H)70 - 100 mg/dL 05/02/2025 1:00 AM [facility] ([facility])Calcium8.5(L)8.6 - 10.3 mg/dL 05/02/2025 1:00 AM [facility] ([facility])Anion Jjt118 - 20 mmol/L 05/02/2025 1:00 AM [facility] ([facility])eGFR16.8(L)>60.0 mL/min/1.73m* 1:00 AM [facility] ([facility])Comment:[facility]???s estimated glomerular filtration rate (eGFR) [...] one group of individuals.BUN/Creatinine Ratio20. 1:00 AM [facility] ([facility])Specimen (Source)Anatomical Location / LateralityCollection Method / VolumeCollection TimeReceived TimeBloodVenous blood specimen / Unknown Venipuncture / Xaowdxk0405/02/2025 12:24 AM EDT1 12:37 AM EDT Narrative Authorizing ProviderResult TypeResult StatusOsaMadera Community Hospital BLOOD ORDERABLESFinal ResultPerforming OrganizationAddressCity/State/ZIP CodePhone Number [facility] ([facility]) [address] [place] [address] * (ABNORMAL) CBC (05/02/2025 12:24 AM EDT)ComponentValueRef RangeTest Method Analysis TimePerformed AtPathologist SignatureAuto WBC10.314.00 - 10.60 10*3/uL05/02/2025 12:42 AM [facility] ([facility])RBC2.93(L)3.80 - 5.00 10*6/uL05/02/2025 12:42 AM [facility] ([facility])Hemoglobin8.5(L)12.0 - 15.0 g/dL05/02/2025 12:42 AM [facility] ([facility])Mhaybcajqs93.1(L) 36.0 - 45.0 %05/02/2025 12:42 AM [facility] ([facility])MCV89.182.0 - 98.0 fL05/02/2025 12:42 AM [facility])MCH29.027.0 - 33.0 pg 05/02/2025 12:42 AM [facility])MCHC32.632.0 - 35.0 g/dL 05/02/2025 12:42 AM [facility] ([facility])RDW15.3(H)11.5 - 15.0 % 05/02/2025 12:42 AM [facility] ([facility])Ebepfxxvk420678 - 400 10*3/uL 05/02/2025 12:42 AM [facility] ([facility])Specimen (Source)Anatomical Location / LateralityCollection Method / VolumeCollection TimeReceived Time BloodVenous blood specimen / UnknownVenipuncture / Otncgpp4705/02/2025 12:24 AM EDT1 12:33 AM EDT Narrative Authorizing ProviderResult TypeResult StatusOsayovani [facility] BLOOD ORDERABLESFinal ResultPerforming OrganizationAddressCity/State/ZIP CodePhone Number [facility] ([facility]) [address] [facility] [place] [address] documented in this encounter Visit Diagnoses Diagnosis Acute on chronic heart failure with preserved ejection fraction (HFpEF) ([facility])- Primary Acute on chronic heart failure with preserved ejection fraction (HFpEF) ([facility]) Coronary arteriosclerosis Coronary atherosclerosis of unspecified type of vessel, king salmon or graft Essential (primary) hypertension Unspecified essential hypertension Chronic diastolic heart failure ([facility]) Chronic diastolic heart failure Goiter Goiter, unspecified Hypertensive disorder Unspecified essential hypertension Stage 4 chronic kidney disease ([facility]) Type 2 diabetes mellitus ([facility]) Acute on chronic heart failure with preserved ejection fraction (HFpEF) ([facility]) documented in this encounter Admitting Diagnoses Diagnosis Acute on chronic heart failure with preserved ejection fraction (HFpEF) ([facility]) documented in this encounter Administered Medications Medication OrderMAR ActionAction DateDoseRateSite allopurinol (Zyloprim) tablet 100 mg 100 mg, oral, Nightly, First dose (after last reorder) on Mon05/02/25 at 2200, For 99 days Given05/03/2025 9:32 PM PDX934 meQbnet5105/02/2025 10:15 PM QBC392 mg amLODIPine (Norvasc) tablet 10 mg 10 mg, oral, Daily, First dose on Mon05/01/25 at 2115, For 99 days Given05/04/2025 10:00 AM EST10 dxMkbsp9205/03/2025 9:30 AM EDT10 mfCmnra3005/02/2025 1:38 PM EDT10 mg aspirin EC tablet 81 mg 81 mg, oral, Every morning, First dose on Mon05/02/25 at 1000, For 99 days, Do not crush, chew, orsplit. Given05/04/2025 10:00 AM EST81 tgAgvja2005/03/2025 9:30 AM EDT81 woTykym8505/02/2025 1:08 PM EDT81 mg atorvastatin (Lipitor) tablet 40 mg 40 mg, oral, Nightly, First dose on Mon05/01/25 at 2200, For 99 days Given05/03/2025 9:31 PM EDT40 btMxgnu5305/02/2025 10:15 PM EDT40 wtVhbjp0305/01/2025 10:01 PM EDT40 mg bumetanide (Bumex) injection 3 mg 3 mg, intravenous, Administer over 1 Minutes, 2 times daily, First dose (after last modification) on Mon05/02/25 at 1000 Given05/04/2025 10:00 AM EST3 aoQcmvd4905/03/2025 9:31 PM EDT3 crHkbew9905/03/2025 9:30 AM EDT3 mg dextrose 50 % [...] at 1120, Intraprocedure Given05/02/2025 11:34 AM EDT25 tigUrecn91/31/2025 11:20 AM EDT25 mcg glucose chewable tablet [...] deep vein thrombosis prevention Indications:deep vein thrombosis izrbwnwxbxHyxfz16/02/2025 10:00 AM EST5,000 UnitsLeft Lower FnlzzbyLkejk79/01/2025 9:31 PM EDT5,000 UnitsRight Lower Abdomen Given05/03/2025 9:30 AM EDT5,000 UnitsLeft Lower Abdomen heparin irrigation 2 units/mL in NS As needed, Starting on Mon05/02/25 at 1107, Intraprocedure Given05/02/2025 11:07 AM EDT1,000 mL hydrALAZINE (Apresoline) tablet 50 mg 50 mg, oral, 2 times daily, First dose on Mon05/01/25 at 2200, For 99 days Given05/04/2025 10:00 AM EST50 doNimxq7505/03/2025 9:31 PM EDT50 paCuckn4505/03/2025 9:30 AM EDT50 mg insulin lispro (HumaLOG) [...] Physician Given05/04/2025 12:22 PM EST1 UnitsLeft Upper TljxdkhYtbut62/01/2025 5:51 PM EDT 1 UnitsLeft Lower LyifhhmJlyeq71/01/2025 12:43 PM EDT1 UnitsLeft Lower Abdomen isosorbide mononitrate ER (Imdur) 24 hr tablet 30 mg 30 mg, oral, Once Daily, First dose on Mon05/02/25 at 0900, For 99 days, Do not crush, chew, or split. Given05/04/2025 9:59 AM EST30 mdTwxre3205/03/2025 9:30 AM EDT30 jrZkxnj2305/02/2025 1:38 PM EDT30 mg levothyroxine (Synthroid, Levoxyl) tablet 75 mcg 75 mcg, oral, Daily, First dose on Mon05/01/25 at 2115, For 99 days Given05/04/2025 6:11 AM EST75 tdmAlwkq76/01/2025 6:33 AM EDT75 mcgGiven 05/02/2025 5:25 AM EDT75 mcg lidocaine (PF) (Xylocaine) 10 mg/mL (1 %) injection As needed, Starting on Mon05/02/25 at 1107, Intraprocedure Given05/02/2025 11:07 AM EDT10 mL metoprolol tartrate (Lopressor) tablet 75 mg 75 mg, oral, 2 times daily RT, First dose (after last modification) on Mon05/02/25 at 0800, For 197 doses Given05/04/2025 9:00 AM EST75 quBpdrp7405/03/2025 8:19 PM EDT75 qqRyjhj4505/03/2025 9:30 AM EDT75 mg midazolam (Versed) injection As needed, Starting on Mon05/02/25 at 1137, Intraprocedure Given05/02/2025 11:37 AM EDT1 mg potassium chloride CR (Klor-Con M20) ER tablet 40 mEq 40 mEq, oral, Daily, First dose on Mon05/01/25 at 2115, For 99 days, Best given with food and plenty of water to minimize gastric irritation. Do not crush or chew. Given05/04/2025 9:59 AM EST40 xKcZelcv74/01/2025 9:30 AM EDT40 mEqGiven 05/02/2025 1:39 PM EDT40 mEq sodium bicarbonate tablet 650 mg 650 mg, oral, 2 times daily, First dose on Mon05/03/25 at 1300, For 99 days Given05/04/2025 10:00 AM VQR001 trTdwdw1405/03/2025 9:32 PM OCN827 mgGiven 05/03/2025 1:43 PM OXA312 mg sodium chloride 0.9 % infusion Continuous [...] Avalos, RN) * 0930 (Given - Provider: Trduy Collado, RN) * 2018 (Given - Provider: [...] Date John Perdomo DO [address] [place] [address] PCP - Zqeneli37/8/22documented as of this encounter
--- OUTSIDE RECORDS SUMMARY | 2025-05-07 09:59 | XMS_ITS | Patient Health Record ---
Author Organization [facility] [place] Address [address] [place] [address] Care Team Providers Care World Language Teacher Name Role Phone John Perdomo Primary [...] Orally Three times a dayActiveErgocalciferol 1.25 MG (98821 UT)1 capsule Orally Once every other weekActiveOzurdex [...] alcohol in the p ast year? 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 f/u eye doctor as directed continue eye gtts and off acyclovir stable ProblemAnemia in chronic kidney disease (793167662)Anemia in chronic kidney disease (D63.1)ActiveconfirmedProblemNon-toxic multinodular goiter (64131285) Nontoxic multinodular goiter (E04.2)ActiveconfirmedlabsProblemDiabetic renal disease (705929483)Type 2 diabetes mellitus with diabetic chronic kidney disease (E11.22)Activeconfirmed urine microalb yearly BS check tid ac and hs continue basaglar 15 bid diet/exercise eye exam yearly foot exam daily A1c today improved - recheck in 6 months f/u conference services director as directed ProblemVitamin D deficiency (95546263)Vitamin D deficiency, unspecified (E55.9) ActiveconfirmedProblemOverweight (963347702)Overweight (E66.3)Activeconfirmed Problem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 inflammatory arthritis and tophaceous disease (275822665)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 inflammatory arthritis and tophaceous disease (E79.0)Activeconfirmed continue allopurinol 100mg daily diet monitor uric acid - goal less than 6 may need to change to uloric if needs more medication due to CKD ProblemChronic diastolic heart failure (078745702)Chronic diastolic (congestive) heart failure (I50.32)ActiveconfirmedProblemAcute on chronic diastolic heart failure (408948112)Acute on chronic diastolic (congestive) heart failure (I50.33)ActiveconfirmedProblemOsteoarthritis of knee (120946657)Unilateral primary osteoarthritis, left knee (M17.12)Activeconfirmed f/u PT rec weight loss ?injections ProblemDisplacement of cervical intervertebral disc without myelopathy (95065008)Other cervical disc displacement, unspecified cervical region (M50.20) Activeconfirmed monitor stable PT/injections if worsens ProblemDisorder of bone (35648700)Other specified disorders of bone density and structure, unspecified site (M85.80)Activeconfirmed rec prolia monitor vit D set up dexa exercise ProblemChronic kidney disease stage 4 (007497780)Chronic kidney disease, stage 4 (severe) (N18.4)ActiveconfirmedProblemSecondary hyperparathyroidism of renal origin (48222508)Secondary hyperparathyroidism of renal origin (N25.81)Active confirmedProblemMedical examination for suspected condition (216568329)Encounter for observation for other suspected diseases and conditions ruled out (Z03.89) Activeconfirmedf/u eye doctor as directedProblemCongestive heart failure (80585743)CHF (congestive heart failure) (I50.9)ActiveconfirmedProblemCoronary artery disease (75847846)CAD (coronary artery disease) (I25.10)Activeconfirmed ProblemVitamin D deficiency (58890378)Vitamin D deficiency (E55.9)Active confirmedProblemAcquired hypothyroidism (418357871)Acquired hypothyroidism (E03.9)ActiveconfirmedProblemSystolic heart failure (771725121)Systolic CHF (I50.20)ActiveconfirmedProblemAtherosclerotic heart disease of [place] coronary artery without angina pectoris (941221369011133)Coronary artery disease involving [place] heart without angina pectoris, unspecified vessel or lesion type (I25.10)ActiveconfirmedProblemAtherosclerotic heart disease of [place] coronary artery without angina pectoris (942053266514248)Atherosclerosis of [place] coronary artery without angina pectoris, unspecified whether [place] or transplanted heart (I25.10)Activeconfirmed s/p CABG x2 stable monitor BP control f/u cardiology as directed later today continue statin/bblocker/norvasc hold on TOLU due to CKD s/p CABG x 2 - 07/2020 ProblemHypothyroidism (22326106)Hypothyroidism, unspecified type (E03.9)Active confirmed levothyroxine increased to 50 mcg daily recently monitor labs and adjust med if needed ProblemEssential hypertension (38067534)BP (high blood pressure) (I10)Active confirmedProblemPure hypercholesterolemia (689529469)Pure hypercholesterolemia (E78.00)ActiveconfirmedProblem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, 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) ActiveconfirmedProblemPrimary hypertension (60407793)Primary hypertension (I10) ActiveconfirmedProblemMild nonproliferative retinopathy due to diabetes mellitus (disorder) (811984991)Mild nonproliferative diabetic retinopathy of both eyes without macular edema associated with type 2 diabetes mellitus (E11.3293)Active confirmedProblemTear film insufficiency (02581296)Dry eye syndrome of lacrimal gland, unspecified laterality (H04.129)Activeconfirmedf/u opthamologist and continue eye gtts/ointProblemMalnutrition of mild degree (Shell: 75% to less than 90% of standard weight) (74354200)Mild protein malnutrition (E44.1)Active confirmedProblemMild nonproliferative retinopathy of bilateral eyes due to diabetes mellitus type 2 (disorder) (64928065716452867)Type 2 diabetes mellitus with mild nonproliferative retinopathy of both eyes without macular edema, unspecified whether meterman insulin use (E113293)Activeconfirmed urine microalb yearly BS check tid ac and hs continue basaglar 15 bid diet/exercise eye exam yearly foot exam daily A1c today improved - recheck in 6 months f/u conference services director as directed ProblemDiabetic renal disease (703510335)Type 2 diabetes mellitus with diabetic nephropathy, unspecified whether intermediate insulin use (E11.21)Activeconfirmed urine microalb yearly BS check tid ac and hs continue basaglar 15 bid diet/exercise eye exam yearly foot exam daily A1c today improved - recheck in 6 months f/u conference services director as directed ProblemChronic kidney disease stage 3 (disorder) (381844883)Chronic kidney disease, stage 3 unspecified (N18.30)Activeconfirmed urine microalb yearly BS check tid ac and hs continue basaglar 15 bid diet/exercise eye exam yearly foot exam daily A1c today improved - recheck in 6 months f/u conference services director as directed ProblemChronic kidney disease stage 4 (942012415)Acute worsening of stage 4 chronic kidney disease (N18.4)Activeconfirmed Vital Signs Heart Rate 70 /min 12/05/2024 Respiratory Rate16 /min12/05/2024lood pressure hntpdgvsu73 mm Hg12/05/2024 Nokpgjci75 %12/05/20244461Cknjfn34 in12/05/2024lood pressure rsnbjugr401 mm Hg 12/05/20244904Juiwcf455.8 lbs12/05/2024BMI28.65 kg/m212/05/2024 Encounters Encounter Location Date Provider Diagnosis [facility] [address] [place] [address] 12/05/2024 John Perdomo Encounter for [facility] annual wellness exam Z00.00 ; Encounter for [...] diabetic retinopathy with macular edema, bilateral E11.3413 [facility] [address] [place] [address] 05/05/2025 John Perdomo [facility] [place] [address]/[facility] [place] [address]/03/2025 [facility] [place] [address] [facility] [place] [address]/03[facility] [place] [address]/01/2025[facility] [place] [address]/[facility] [place] Assessments Encounter Date Diagnosis (ICD Code) Assessment [...] for malignant neoplasm of breast (ICD-10 - Z12.31)12/05/2024symptomatic menopausal state (ICD-10 - Z78.0) 12/05/2024Overweight (ICD-10 - E66.3)diet/kwwtilpp37/05/2025ody mass index [BMI] 28.0-28.9, adult (ICD-10 - Z68.28)12/05/2024Type 2 diabetes mellitus with diabetic chronic kidney disease (ICD-10 - E11.22) f/u neph as directed stable diet/exercise continue meds 12/05/2024Essential (primary) hypertension (ICD-10 - I10) bp check daily goal <130/80 diet/exercise monitor bmp and urine microalbumin yearly 12/05/2024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 inflammatory arthritis and tophaceous disease (ICD-10 - E79.0) stable lab yearly - goal <6 diet 12/05/2024Pure hypercholesterolemia (ICD-10 - E78.00) LDL goal <70 diet/exercise labs yearly stable 12/05/2024nemia in chronic kidney disease (ICD-10 - D63.1) monitor stable 12/05/2024hronic diastolic (congestive) heart failure (ICD-10 - I50.32) f/u cardio as directed monitor weight and bmp ER if SOB/CP 12/05/2024Vitamin D deficiency (ICD-10 - E55.9)lab yearly - adjuse med prn 12/05/2024quired hypothyroidism (ICD-10 - E03.9) increase med - [...] GLOBAL* 2024 Next Appt Details Provider Name:John Sharonda browne, 05/12/2025 01:00:00 PM, [address] [place], [address], Provider Name:John Sharonda browne, 06/11/2025 01:00:00 PM, [address] [place], [address], Insurance Providers Payer Name Payer Address Payer Phone Subscriber Number Group Number Insured Name Patient Relationship to Insured Coverage Start Date Coverage End Date MEDICARE [place] [address] [address] [place] [address] [id number] Marko Poloelf - patient is the [id number] MEDICARE [address]PP[address] [place] [id number], Sharon Self - patient is the [id number] 2019 Medical (General) History Medical History History ICD Code Diabetes HypertensionOsteoporosishyperuricemiackd-4vit D deficiencyhypothyroidismCHF - diastoliccad s/p CABGhyperlipidemiasecondary hyperparathyroidismhypokalemiairon def anemiaanemia of CKDb/l diabetic retinopathyb/l macular edemaglaucomaPAF 2020 post oppulm HTNSurgical History Surgery Date(Month/Year) Appendectomy deliveryCholecystectomyOpen heart surgery - double cabdlk2407/13/2020 Cardiac catheterization +CAD07/10/2020Total knee replacement (L)05/01/2020 Cataracts (b/l)11/06/2019Thyroid bxRight foot surgeryOvarian cyst removal Arthroscopic/knee - torn ygrhsgvq9175
--- OUTSIDE RECORDS SUMMARY | 2025-05-07 10:00 | XMS_ITS | Clinical Summary ---
Author Organization [facility] Address [address] [facility] [place] [address] Care Team Providers Care Turbine Inspector Name Role Phone John Perdomo MD Unavailable [phone] Unallocated, Noms Provider MD Primary Care Provi kortney Allergies Active AllergyReactionsCriticalityNoted DateCommentsErythromycinAnaphylaxis, Other,AbtueltLpby51/08/2022Erythromycin KnsrIsglntdkjtlJyry10/08/2022 NyqludozwobmeQhlnt05/08/2022enicillin ZDefpu4605/08/2023enicillinsHives 05/10/20226984JncqojnqcadglgKwakInj84/04/2024 Medications MedicationSigDispense QuantityRefillsLast FilledStart DateEnd DateStatus potassium [...] other day.Active ergocalciferol (Vitamin D-2) 1.25 MG (34630 UT) capsule Take 1 capsule by mouth [...] 109506Active Active Problems ProblemNoted DateDiagnosed DateNontoxic multinodular ttyqwg8909/27/2023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 type1 diabetes mzpdcegw54/06/2023orneal scar, right eye05/08/2023ry eyes 05/08/2023rimary open angle glaucoma (POAG) of both eyes, mild stage05/08/2023 Encounters DateTypeDepartmentCare MrffIdhfgzdevsw71/21/2025Refill [facility] [address] [place] [address] Johnathon Yanez, Primary open angle glaucoma (POAG) [...] CommentsUnknownSex and Gender InformationValueDate RecordedSex Assigned at Pbnegs9905/01/2023 9:06 AM EDTLegal AxbNymhpf47/01/2023 8:34 PM EDTGender Identity Hathni0005/01/2023 9:06 AM EDTSexual OrientationNot on file Last Filed Vital Signs Vital SignReadingTime TakenCommentsBlood Ffgkhouj520/52009/27/2023 11:29 AM EDT Pulse--Temperature--Respiratory Rate--Oxygen Saturation--Inhaled Oxygen Concentration--Ollniw48.9 kg (132 lb)09/27/2023 11:29 AM XBVAimuvl551.2 cm (4' 8 )09/27/2023 11:29 AM EDTBody Mass Index29.59009/27/2023 11:29 AM EDT Plan of Treatment DateTypeDepartmentCare Team (Latest Contact Info)Jxnmqvkgbzg60/03/2025 1:15 [address]Office [address] [facility] [address] [place] [address] Johnathon Yanez DO [address] [place] [address] Health MaintenanceDue DateLast DoneCommentsCT Mwtwflbagqek1951olonoscopy 1950olorectal Cancer Ayoixrcwe1950FIT-DNA1950FIT1950 FOBT1950Medicare Annual Wellness (AWV)04/23/19518802Ijsoilnnckbms1950 DTaP/Tdap/Td Vaccines (1 - Tdap)1958Diabetes: Urine Protein Screening 1970Pneumococcal Vaccine: 65+ Years (1 of 2 - PCV)1970Mammogram 1991Diabetes: Hemoglobin A1C04/08/619561/1COVID-19 Vaccine (1 - 2023- season)2025Influenza Vaccine (#1)2025Diabetes: Retinopathy Natvstibs93/27/616102/, 11/26/2024, 11/26/2024, Additional history exists HIB VaccinesAged OutNo longer eligible based on patient's age to complete this topicHPV VaccinesAged OutNo longer eligible based on patient's age to complete this topicHepatitis A VaccinesAged OutNo longer eligible based on patient's age to complete this topicHepatitis B VaccinesAged OutNo longer eligible based on patient's age to complete this topicIPV VaccinesAged OutNo longer eligible based on patient's age to complete this topicMeningococcal B VaccineAged OutNo longer eligible based on patient's age to complete this topicMeningococcal VaccineAged OutNo longer eligible based on patient's age to complete this topicRotavirus VaccinesAged OutNo longer eligible based on patient's age to [place] [address] Care Teams Team MemberRelationshipSpecialtyStart DateEnd Date Unallocated, Noms MD Marcel[address] [place], [place] [id number] PCP - GeneralFamily Medicine08/18/23 John Perdomo MD [address] [place] [address] Referring PhysicianOrthopaedic Fbyfrol53/6/23
--- OUTSIDE RECORDS SUMMARY | 2025-05-07 10:00 | XMS_ITS | Encounter Summary ---
Author Organization [facility] Address [address] [facility] [place] [address] Care Team Providers Care Length Control Tester Name Role Phone John Galindo MD Unavailable [phone] Unallocated, Noms Provider Primary Care Provi kortney Encounter Details DateTypeDepartmentCare Team (Latest Contact Info)Vntagzaasyz30/09/2024Clinisync Result Encounter [facility] External Department Unsolicited Anahi Stanford MD [address] [facility] [address] [place] [address] Social History Tobacco UseTypesPacks/DayYears UsedDateSmoking Tobacco: NeverComments UnknownSex and Gender InformationValueDate RecordedSex Assigned at BirthFemale 05/01/2023 9:06 AM EDTLegal AobZmrrfd61/01/2023 8:34 PM EDTGender IdentityFemale 05/01/2023 9:06 AM EDTSexual OrientationNot on filedocumented as of this encounter Plan of Treatment DateTypeDepartmentCare Team (Latest Contact Info)Pyftgkiubom80/03/2025 1:15 PM ESTOffice Visit [facility] [address] [place] [address] Johnathon Yanez DO [address] [place] [address] documented as of this encounter Procedures Procedure NamePriorityDate/TimeAssociated DiagnosisCommentsUS DMZJJHS0409/09/2023 4:18 AM EST documented in this encounter Results * US thyroid (09/09/2023 4:18 AM EST)Anatomical RegionLateralityModalityHead, NeckUltrasoundSpecimen (Source)Anatomical Location / LateralityCollection Method / VolumeCollection TimeReceived Time09/09/2023 4:18 AM EST Narrative 09/09/2023 4:20 AM EST [facility] ?[address] ? [place] [address] ? Ultrasound Report ? Signed ? Patient: CLAUDIA POLO E ?MR#: [id number] ?? : 1950 ?Acct:[id number] ?? Age/Sex: 73 / F ?ADM Date: 09/06/23 ?? Loc: US ? Attending Dr: Anahi Stanford M.D. ? Ordering Physician: Anahi Stanford M.D. ?? Date of Service: 09/06/23 ?? Procedure(s): US thyroid ?? Accession Number(s): [id number] ? cc: JOHN GALINDO D.O.; Anahi Stanford M.D. ? [facility] ? [address] [place] [address] ? [place] [address] ? Patient Name: ?? CLAUDIA POLO ? MRN: [facility]:[id number] ? date: 1950 ?Sex: F ?? Assigned Patient Location: US ?? Current Patient Location: US ?? Accession/Order Number: [id number] ?? Exam Date: 09/06/2023 ??15:00 ?Report Date: 09/09/2023 ??04:18 ? At the request of: ?? ANAHI ??KATE ? Procedure: ??US thyroid ? EXAMINATION: US thyroid ? HISTORY: Nontoxic Multinodular Goiter E04.2 ? COMPARISON: Ultrasound thyroid 08/24/2022 ? FINDINGS: ?? RIGHT LOBE: Heterogeneous echotexture containing a 1.4 cm TR 4 nodule within ?? mid body. ?? Lobe size: 4.2 x 1.7 x 1.4 cm ? LEFT LOBE: Heterogeneous echotexture containing a 0.5 cm TR 3 nodule within ?? inferior pole and a 0.9 cm TR 2 nodule within mid body. ?? Lobe size: 3.9 x 2.1 x 1.4 cm ? ISTHMUS: Heterogeneous echotexture. ?? Thickness: 3 mm ? US/US thyroid ?? IMPRESSION: ? 1. Heterogeneous thyroid gland containing several nodules. Follow-up ?? ultrasound ?? evaluation one year is recommended. ? TR4 (moderately suspicious): If > 1.0 cm, follow-up ultrasound in 1, 2, 3, and ?? 5 years. If > 1.5 cm, fine needle aspiration (FNA). TR3 (mildly suspicious): > 1.5 cm, follow-up ultrasound in 1, 3, and 5 years. > 2.5 cm, fine needle aspiration. ?? TI-RADS 2: Benign nodules. Noticeably benign pattern (0% risk of malignancy) ? Electronically authenticated by: LOCO ??THELMA ?? Date: 09/09/2023 ??04:18 ? Dictated By: ?Loco Michelle M.D. ? Signed By: ?09/09/23 0420 ? DD/ 0418 ? TD/TT: ? Die Equipment Operator: Procedure Note Radiology, Radiologist, MD - 09/09/2023 [place] [address] Ultrasound Report Signed Patient: CLAUDIA POLO EMR#: [id number] : 1950cct:[id number] Age/Sex: 73 / FADM Date: 09/06/23 Loc: US Attending Dr: Anahi Stanford M.D. Ordering Physician: Anahi Stanford M.D. Date of Service: 09/06/23 Procedure(s): US thyroid Accession Number(s): [id number] cc: JOHN GALINDO D.O.; Anahi Stanford M.D. The [address] [address] Patient Name: CLAUDIA POLO MRN: [facility]:[id number] date: 1950 Sex: F Assigned Patient Location: US Current Patient Location: US Accession/Order Number: [id number] Exam Date: 09/06/2023 15:00 Report Date: 09/09/2023 [...] M.D. Signed By:09/09/23 0420 DD/ 0418 TD/TT: Die Equipment Operator: Authorizing ProviderResult TypeResult StatusHilayoko Stanford MDIMRafita US PROCEDURES Final Result documented in this encounter Visit Diagnoses Not on filedocumented in this encounter Care Teams Team MemberRelationshipSpecialtyStart DateEnd Date Unallocated, Noms Provider, [place] [address] PCP - GeneralFamily Medicine08/18/23 John Galindo MD [address] [place] [address] Referring PhysicianOrthopaedic Liojgoo54/6/23documented as of this encounter
--- OUTSIDE RECORDS SUMMARY | 2025-05-07 10:00 | XMS_ITS | Encounter Summary ---
Author Organization [facility] Address [address] [place] [address] Care Team Providers Care Credit Relationship Manager Name Role Phone John Perdomo DO Primary Care Provider [phone] Encounter Details DateTypeDepartmentCare Team (Latest Contact Info)Kgzdcxlzudp41/27/2025Telephone [facility] at [facility] [address] [place] [address] Michelle Dias MA Social History Tobacco UseTypesPacks/DayYears UsedDateSmoking Tobacco: NeverSmokeless Tobacco: NeverAlcohol UseStandard Drinks/WeekCommentsNot Currently0 (1 standard drink = 0.6 oz pure alcohol)[place] Safety & EnvironmentAnswerDate RecordedFear of Current or Ex-PartnerNot on file08/24/2023Emotionally AbusedNot on file08/24/2023hysically AbusedNot on file08/24/2023Sexually AbusedNot on file08/24/2023hysically or Sexually AbusedNot on file08/24/2023CommentsUnknownSex and Gender InformationValueDate RecordedSex Assigned at GxkirEjluwd31/17/2022 6:11 PM EST Legal KnjJgiuhg31/30/2022 12:22 AM EDTGender DepeelvkWoqbkg79/17/2022 6:11 PM ESTSexual OrientationHeterosexual or Lzwvxxmh77/17/2022 6:11 PM ESTdocumented as of this encounter Miscellaneous Notes * Telephone Encounter - Michelle Dias MA - 04/28/2025 4:35 PM EDT [place] back from Dr. Jenkins's office and he is ok with change in Bumex dose per Dalia To. Patientmade aware via message in Book&Table. * Telephone Encounter - Michelle Dias MA - 04/28/2025 3:41 PM EDT Images from the original note were not included. Regarding CXR result from 04/25/2025: IRISH Hollingsworth MA CXR notes mild CHF and interstitial edema. Sx's of SOB laying down is a sign of fluid retention. Recommend she increase bumex to 2mg twice daily for 3 days then 2mg AM, 1mg PM - please see if thisis ok with nephro. Thanks Patient made aware. I'm waiting to hear back from Dr. Jenkins's office regarding increase in Bumex per Dalia To. documented in this encounter Plan of Treatment DateTypeDepartmentCare Team (Latest Contact Info)Vhukhwghiug30/18/2025 10:00 AM ESTFollow-[facility] [address] [place] [address] Emilia To CNP [address] [place] [address] documented as of this encounter Visit Diagnoses Not on filedocumented in this encounter Care Teams Team MemberRelationshipSpecialtyStart DateEnd Date John Perdomo DO [address] [place] [address] PCP - Fswnagq78/8/22documented as of this encounter
--- OUTSIDE RECORDS SUMMARY | 2025-05-07 10:01 | XMS_ITS | Encounter Summary ---
Author Organization [facility] Address [address] [place] [address] Care Team Providers Care Fork Lift Truck Operator Name Role Phone Hunter Perdomoel Primary Care Provider [phone] Reason for Referral * Imaging (Emergency) - Pending ReviewSpecialtyDiagnoses / ProceduresReferred By ContactReferred To ContactCardiology Diagnoses Swelling Procedures Vascular US lower extremity venous duplex bilateral Emilia To CNP [address] [place] [address] Phone: tel: fax: Referral IDStatusReasonStart DateExpiration DateVisits RequestedVisits [id number] Review Perform Procedure Encounter Details DateTypeDepartmentCare Team (Latest Contact Info)Nqybfhxseep34/05/2025Orders Only [facility] at [facility] [address] [place] [address] Julita Scherer MA Swelling (Primary Dx) Social History Tobacco UseTypesPacks/DayYears UsedDateSmoking Tobacco: NeverSmokeless Tobacco: NeverAlcohol UseStandard Drinks/WeekCommentsNot Currently0 (1 standard drink = 0.6 oz pure alcohol)[facility] UtilitiesAnswerDate RecordedIn the past 12 months [...] were you homeless or living in a prison (including now)? No05/01/2025Hunger Vital SignAnswerDate RecordedWithin the past 12 months, you worried that your food would run out before you got the money to buymore.Never true05/01/2025Ran Out of Food in the Last YearNot on file05/01/2025 CommentsUnknownSex and Gender InformationValueDate RecordedSex Assigned at Laiybn6205/19/2022 6:11 PM ESTLegal DahTdkavh73/30/2022 12:22 AM EDTGender YkefimcaCptqno63/17/2022 6:11 PM ESTSexual OrientationHeterosexual or Straight 05/19/2022 6:11 PM ESTdocumented as of this encounter Plan of Treatment DateTypeDepartmentCare Team (Latest Contact Info)Ntcxvppxfkp33/18/2025 10:00 AM ESTFollow-Up [facility] Heart at [facility] [address] [place] [address] Emilia To, LEACHER [address] [place] [address] NameTypePriorityAssociated DiagnosesOrder ScheduleVascular US lower extremity venous duplex bilateralVascular UltrasoundSTAT Swelling Expected: 05/07/2025 (Approximate), Expires: 05/07/2027documented as of this encounter Visit Diagnoses Diagnosis Swelling- Primary Localized superficial swelling, mass, or lump documented in this encounter Care Teams Team MemberRelationshipSpecialtyStart DateEnd Date John Perdomo DO [address] [place] [address] PCP - Skcnrla68/8/22documented as of this encounter
--- OUTSIDE RECORDS SUMMARY | 2025-05-07 10:01 | XMS_ITS | Encounter Summary ---
Author Organization [facility] Address [address] [place] [address] Care Team Providers Care Cook Helper Name Role Phone John Perdomo Primary Care Provider [phone] Encounter Details DateTypeDepartmentCare Team (Latest Contact Info)Tfnxmhvnyci38/24/2025Orders Only [facility] [address] [place] [address] Michelle Dias MA Shortness of breath (Primary Dx) Social History Tobacco UseTypesPacks/DayYears UsedDateSmoking Tobacco: NeverSmokeless Tobacco: NeverAlcohol UseStandard Drinks/WeekCommentsNot Currently0 (1 standard drink = 0.6 oz pure alcohol)NE Safety & EnvironmentAnswerDate RecordedFear of Current or Ex-PartnerNot on file08/24/2023Emotionally AbusedNot on file08/24/2023hysically AbusedNot on file08/24/2023Sexually AbusedNot on file4Physically or Sexually AbusedNot on file08/24/2023CommentsUnknownSex and Gender InformationValueDate RecordedSex Assigned at DieudIvbxvb72/17/2022 6:11 PM EST Legal VvpUrxhpy26/30/2022 12:22 AM EDTGender KkrcumzrIezadc63/17/2022 6:11 PM ESTSexual OrientationHeterosexual or Fsoulvgz78/17/2022 6:11 PM ESTdocumented as of this encounter Plan of Treatment DateTypeDepartmentCare Team (Latest Contact Info)Fsszgkfbygj87/18/2025 10:00 AM ESTFollow-Up [facility] [address] [place] [address] Emilia To, VALET PARKER [address] [place] [phone] NameTypePriorityAssociated DiagnosesOrder ScheduleXR chest 2 viewsImagingRoutine Shortness of breath Expected: 04/25/2025, Expires: 04/25/2026documented as of this encounter Visit Diagnoses Diagnosis Shortness of breath- Primary documented in this encounter Care Teams Team MemberRelationshipSpecialtyStart DateEnd Date John Perdomo DO [address] [place] [address] PCP - Ztxably87/8/22documented as of this encounter
--- OUTSIDE RECORDS SUMMARY | 2025-05-07 10:01 | XMS_ITS | Encounter Summary ---
Author Organization [facility] Address [address] [place] [address] Care Team Providers Care Form Maker Plaster Name Role Phone John Perdomo DO Primary Care Provider [phone] Encounter Details DateTypeDepartmentCare Team (Latest Contact Info)Kghvoviaaea33/05/2025Telephone [facility] at [facility] [address] [place] [address] Julita Scherer MA Social History Tobacco UseTypesPacks/DayYears UsedDateSmoking Tobacco: NeverSmokeless Tobacco: NeverAlcohol UseStandard Drinks/WeekCommentsNot Currently0 (1 standard drink = 0.6 oz pure alcohol)[facility] UtilitiesAnswerDate RecordedIn the past 12 months [...] were you homeless or living in a senior care (including now)? No05/01/2025Hunger Vital SignAnswerDate RecordedWithin the past 12 months, you worried that your food would run out before you got the money to buymore.Never true05/01/2025Ran Out of Food in the Last YearNot on file05/01/2025 CommentsUnknownSex and Gender InformationValueDate RecordedSex Assigned at Fnlcgl0505/19/2022 6:11 PM ESTLegal IoeMamvas01/30/2022 12:22 AM EDTGender CrpbekntVmwiwr73/17/2022 6:11 PM ESTSexual OrientationHeterosexual or Straight 05/19/2022 6:11 PM ESTdocumented as of this encounter Plan of Treatment DateTypeDepartmentCare Team (Latest Contact Info)Kbugrosijmu95/18/2025 10:00 AM ESTFollow-Up [facility] [address] [place] [address] Emilia To, TRACTOR MECHANIC APPRENTICE [address] [place] [address] documented as of this encounter Visit Diagnoses Not on filedocumented in this encounter Care Teams Team MemberRelationshipSpecialtyStart DateEnd Date John Perdomo DO [address] [place] [address] [facility] - Uzgonof43/8/22documented as of this encounter
--- OUTSIDE RECORDS SUMMARY | 2025-05-07 10:01 | XMS_ITS | Encounter Summary ---
Author Organization [facility] Address [address] [place] [address] Care Team Providers Care Biostatistics Manager Name Role Phone John Perdomo Primary Care Provider [phone] Encounter Details DateTypeDepartmentCare Team (Latest Contact Info)Xljejaarsgn43/30/2025Travel Social History Tobacco UseTypesPacks/DayYears UsedDateSmoking Tobacco: NeverSmokeless Tobacco: NeverAlcohol UseStandard Drinks/WeekCommentsNot Currently0 (1 standard drink = 0.6 oz pure alcohol)[facility] UtilitiesAnswerDate RecordedIn the past 12 months has [...] were you homeless or living in a long term (including now)? No05/01/2025Hunger Vital SignAnswerDate RecordedWithin the past 12 months, you worried that your food would run out before you got the money to buymore.Never true05/01/2025Ran Out of Food in the Last YearNot on file05/01/2025 CommentsUnknownSex and Gender InformationValueDate RecordedSex Assigned at Phzmom4105/19/2022 6:11 PM ESTLegal WtwNhjpot46/30/2022 12:22 AM EDTGender RhkammlgZyptkd84/17/2022 6:11 PM ESTSexual OrientationHeterosexual or Straight 05/19/2022 6:11 PM ESTdocumented as of this encounter Functional Status * QuestionAnswerDate of AssessmentAuthorHeart Rate ZrejszDacinar30/30/2025 6:01 PM Jhoana Sims RNPatient IqneotkiBvdxwfm13/30/2025 6:01 PM Jhoana Sims RN * QuestionAnswerDate of TagfiwechhJfubyxTP064/5205/01/2025 11:32 PM Benja Mar RNPulse7205/01/2025 11:32 PM Benja Mar RN * [place] Fall RiskQuestionAnswerDate of AssessmentAuthorHistory of Falling, Immediate or Within 3 Vtxmim536/30/2025 6:50 PM Jhoana Sims RNSecondary Djsundfuu9074/30/2025 6:50 PM Jhoana Sims RNAmbulatory Sdq346 6:50 PM Jhoana Sims RNIntravenous Therapy/Heparin Uies6463 6:50 PM Jhoana Sims RNGait/Tzdqvjtttxuu535/30/2025 6:50 PM Jhoana Sims RNMental Tryrrc478/30/2025 6:50 PM Jhoana Sims RNMorse Fall Risk Score35 05/01/2025 6:50 PM Jhoana Sims, RN * Phill ScaleQuestionAnswerDate of AssessmentAuthorBraden No Risk Interventions Continue to assess patient according to level of care05/01/2025 8:23 PM EDT Benja Degroot, RNSensory Zyciysybqgk854/30/2025 8:23 PM EDTCragenaro, Benja, LTPcrfurir355/30/2025 8:23 PM EDTCrable, Benja, DEGxvjihzc411/30/2025 8:23 PM EDTCrable, Benja, CZRvkrpwxn743/30/2025 8:23 PM EDTCragenaro, Benja, RN Izmzgdbpi750/30/2025 8:23 PM EDTCrable, Benja, RNFriction and Shear3 05/01/2025 8:23 PM EDTCBenja robins RNBraden Scale Xkryv1594/30/2025 8:23 PM EDBenja Justin RN * [place] Fall Risk InterventionsQuestionAnswerDate of AssessmentAuthor [place] Fall Risk KnrebcuqrcxiwByshyoin99/30/2025 6:50 PM Jhoana Sims RN * Pain Assessment TimerQuestionAnswerDate of AssessmentAuthorRestart Pain Assessment AyaavAxp15/30/2025 8:23 PM Benja Mar RN * Sepsis Model ScoresQuestionAnswerDate of AssessmentAuthorEarly Detection of Sepsis Score2.011 11:46 PM EDTChronicles, BatchqEarly Detection of Sepsis Score0.710 11:46 PM EDTChronicles, Batchq * Pain AssessmentQuestionAnswerDate of AssessmentAuthorPain Interventions Saqxpylb72/30/2025 8:23 PM Benja Mar RNPatient's Stated Pain GoalNo pain05/01/2025 8:23 PM Benja Mar RNPain AssessmentNo/denies pain 05/01/2025 8:23 PM Benja Mar RN * Deterioration Index ScoreQuestionAnswerDate of AssessmentAuthorDeterioration Index Score27.031 11:46 PM Marion Ortiz * Head, Ears, Eyes, Nose, and Throat (HEENT)QuestionAnswerDate of Assessment AuthorHead, Ears, Eyes, Nose, and Throat (WDL)X1 8:23 PM Benja Mar RNR EyeMildly impaired vision;Corrective donbrl7905/01/2025 8:23 PM EDT Benja Degroot RNL EyeMildly impaired vision;Corrective iqzpiw0205/01/2025 8:23 PM Benja Mar RNMucous Membrane(s)Moist;[place];Dvqgsl9705/01/2025 8:23 PM Benja Mar RNTeethIntact05/01/2025 6:01 PM Jhoana Sims RN * QuestionAnswerDate of AssessmentAuthorMAP (mmHg)8405/01/2025 11:32 PM Benja Cuevas RN * Short Portable Mental StatusQuestionAnswerDate of AssessmentAuthorWhat are the date, month, year? 6:50 PM Jhoana Sims RNWhat is the day of the week? 6:50 PM Jhoana Sims RNWhat is the name of this place? 6:50 PM Jhoana Sims RNWhat is your phone number?0 05/01/2025 6:50 PM Jhoana Sims RNHow old are you? 6:50 PM EDT Jhoana Carmona RNWhen were you born? 6:50 PM Jhoana Sims RN Who is the current president? 6:50 PM Jhoana Sims RNWho was the president before him? 6:50 PM Jhoana Sims RNWhat was your mother's maiden name? 6:50 PM Jhoana Sims RNCan you count backward from 20 by 3s? 6:50 PM Jhoana Sims RNShort Portable Mental Mfigm749 6:50 PM Jhoana Sims RN * Fall Risk LevelQuestionAnswerDate of AssessmentAuthorMobility zoneLow (Green Zone)05/01/2025 6:50 PM Jhoana Sims RNMorse fall risk zoneLow (Green Zone)05/01/2025 6:50 PM Jhoana Sims RNMental status questionaire zoneLow (Green Zone)05/01/2025 6:50 PM Jhoana Sims RN * Skin Assessment Sign offQuestionAnswerDate of AssessmentAuthorDual Sign-off - Admission/TransferA. BRYCE Abad05/01/2025 6:01 PM Jhoana Sims RNAny new wounds identified on admission/transfer?No05/01/2025 6:01 PM Jhoana Sims RNProvider notified of new fwruyTt1705/01/2025 6:01 PM Jhoana Sims RN * Vital SignsQuestionAnswerDate of KavutzgxgiAvxahdTkna75.81 6:01 PM Jhoana Sims RNTemp yomXyzysupz96/30/2025 6:01 PM Jhoana Sims RN Heart Rate JqfhvuLjthfwb80/30/2025 6:01 PM Jhoana Sims RNBP Location Right arm05/01/2025 6:01 PM Jhoana Sims RNBP OenoqzOrmedonfg14/30/2025 6:01 PM Jhoana Sims, RNPatient MinnscknRxtsuzb47/30/2025 6:01 PM EDT Jhoana Carmona, BRYCE * QuestionAnswerDate of LmgoklkjcrGsxhvjKqO22399/30/2025 11:32 PM EDTCBenja robins RN * QuestionAnswerDate of RixaklnvkgAfzflaGP333/5205/01/2025 11:32 PM EDTCrableBenja NZUvkvn1956/30/2025 11:32 PM EDTCraBenja lam RNResp231 11:32 PM EDTCraBenja lam RNPulse rate from Plethysmogram (bpm)7305/01/2025 11:32 PM Benja Mar RN * QuestionAnswerDate of AssessmentAuthorSwallowAble to swallow solids and liquids without nsaeplrhwd78/30/2025 8:23 PM EDTCBenja robins RN * QuestionAnswerDate of AssessmentAuthorBilateral Breath SoundsDiminished 05/01/2025 8:23 PM EDTCBenja robins RNRespiratory ZorrfjgWjgzrv82/30/2025 8:23 PM EDTCBenja robins RNChest AssessmentChest expansion symmetrical 05/01/2025 8:23 PM EDTCraBenja lam RNRespiratory PhtvzwIwvjfdvel65/30/2025 8:23 PM EDTCraBenja lam RNRespiratory Depth/IgaridEdmmabv04/30/2025 8:23 PM EDTCraBenja lam RNDyspnea OccurrenceWith ddrdgqdy63/30/2025 8:23 PM EDT Benja Degroot RN * QuestionAnswerDate of AssessmentAuthorCardiac UxskxqMEW93/30/2025 8:23 PM EDT Benja Degroot RNEctopy EbncxrnsaTxblilwxyh16/30/2025 6:01 PM Jhoana iSms RNCardiac WkleposahfFlevnrd20/30/2025 8:23 PM Benja Mar RN Strategic Development Manager XybpzsBg48/30/2025 8:23 PM Benja Mar RNTelemetry Box Usqqnphv389139/30/2025 6:01 PM Jhoana Sims RNJugular Venous Distention (JVD)No05/01/2025 8:23 PM EDBenja Justin RNCardiac Symptoms None05/01/2025 8:23 PM EDTCBenja robins RNHeart SoundsS1, S205/01/2025 8:23 PM EDTCraBenja lma RN * GastrointestinalQuestionAnswerDate of AssessmentAuthorGastrointestinal (WDL) WDL1 8:23 PM Benja Mar RN * Peripheral VascularQuestionAnswerDate of AssessmentAuthorPeripheral Vascular (WDL)X1 8:23 PM EDBenja Justin RNCapillary RefillLess than/equal to 2 seconds (All extremities)05/01/2025 8:23 PM EDTCBenja robins RNPulses Right radial;Left radial;Right pedal;Left pedal1 8:23 PM EDBenja Justin RNCyanosisNone1 8:23 PM EDBenja Justin RNEdemaRight lower extremity;Left lower hvlcxuhrq04/30/2025 6:01 PM Jhoana Sims RN Peripheral Vascular Additional AssessmentsRight lower extremity;Left lower parkrzaho04/30/2025 6:01 PM Jhoana Sims RN * RUE Neurovascular AssessmentQuestionAnswerDate of AssessmentAuthorRight Radial Pulse+ 8:23 PM Benja Mar RN * LUE Neurovascular AssessmentQuestionAnswerDate of AssessmentAuthorLeft Radial Pulse+ 8:23 PM Benja Mar RN * RLE Neurovascular AssessmentQuestionAnswerDate of AssessmentAuthorRLE Edema+1 05/01/2025 8:23 PM EDBenja Justin RNRLE Capillary RefillLess than/equal to 2 / 8:23 PM EDTCrable, NAVEEN Yousif ColorAppropriate for igzujsqae63/30/2025 8:23 PM EDTCrable, Benja RNRRUBI Temperature/Moisture Warm;Dry05/01/2025 8:23 PM EDTCrable, Benja, RNRight Posterior Tibial Pulse + 6:01 PM EDTSJhoana ramirez, RN Pedal Pulse+ 8:23 PM EDTCraBenja lam RN * LLE Neurovascular AssessmentQuestionAnswerDate of AssessmentAuthorLLE Edema+1 05/01/2025 8:23 PM EDTCrableBenja RNLLE Capillary RefillLess than/equal to 2 thnqupp3405/01/2025 8:23 PM EDTCrable, BANDAR YousifE ColorAppropriate for ibhkircxg98/30/2025 8:23 PM EDTCrableBenja RNLLE Temperature/Moisture Warm;Dry05/01/2025 8:23 PM EDTCrableBenja RNLeft Posterior Tibial Pulse+1 05/01/2025 6:01 PM EDJhoana Robertson RNRubift Pedal Pulse+ 8:23 PM EDTCBenja robins RN * MusculoskeletalQuestionAnswerDate of AssessmentAuthorMusculoskeletal (WDL)WDL 05/01/2025 8:23 PM EDTCBenja robins RN * PsychosocialQuestionAnswerDate of AssessmentAuthorPsychosocial (WDL)WDL 05/01/2025 8:23 PM EDTCBenja robins RN * [place] Fall RiskQuestionAnswerDate of AssessmentAuthorHistory of Falling, Immediate or Within 3 Hmoknh259 6:50 PM Jhoana Sims RNSecondary Elljcdcpi7704/30/2025 6:50 PM Jhoana Sims, RNAmbulatory Vzu239 6:50 PM Jhoana Sims RNIntravenous Therapy/Heparin Ixlq6904 6:50 PM Jhoana Sims RNGait/Tzqhkfguytgm294/30/2025 6:50 PM Jhoana Sims RNMental Lfthmn087/30/2025 6:50 PM Jhoana Sims RNMorse Fall Risk Score35 05/01/2025 6:50 PM Jhoana Sims RN * Phill ScaleQuestionAnswerDate of AssessmentAuthorBraden No Risk Interventions Continue to assess patient according to level of care05/01/2025 8:23 PM EDT Benja Degroot, RNSensory Lmgzrkjszez638/30/2025 8:23 PM EDTCBenja robins TRHcsvazdz884/30/2025 8:23 PM EDTCBenja robins, NNMbnvcsul194/30/2025 8:23 PM EDTCBenja robins LHXtyfswph688/30/2025 8:23 PM EDTCBenja robins RN Rfpuenvya796/30/2025 8:23 PM EDTCjulienne, Benja, RNFriction and Shear3 05/01/2025 8:23 PM EDTCBenja robins RNBraden Scale Pdipg7056/30/2025 8:23 PM Benja Mar RN * Charting TypeQuestionAnswerDate of AssessmentAuthorCharting TypeShift iyzssrbhat80/30/2025 8:23 PM Benja Mar RN * Values/BeliefsQuestionAnswerDate of AssessmentAuthorCultural Requests During Gtkfxvdhmdqraghrkyf54/30/2025 6:51 PM Ana Davies RNSpiritual Requests During Yvoeskcagcnctvdrglo84/30/2025 6:51 PM Ana Davies RN * GenitourinaryQuestionAnswerDate of AssessmentAuthorGenitourinary (WDL)WDL 05/01/2025 8:23 PM Benja Mar RN * Patient MonitoringQuestionAnswerDate of AssessmentAuthorFrequency of Checks Twice per hour, liivexpl10/30/2025 6:50 PM Jhaona Sims RN * Safe EnvironmentQuestionAnswerDate of AssessmentAuthorChair AlarmsOff 05/01/2025 6:50 PM Jhoana Sims RNArm Bands OnID05/01/2025 6:50 PM Jhoana Del Castillo RNSide Rails/Bed Safety2/ 6:50 PM Jhoana Sims RNBed BakyixChf13/30/2025 6:50 PM Jhoana Sims RNThe Patient's Environment is SymuCwc89/30/2025 6:50 PM Jhoana Sims RN * MobilityQuestionAnswerDate of IhqrkyiajgErdprnKgqclovzoi45/30/2025 6:50 PM Jhoana Del Castillo RNActivity PerformedAmbulated in room05/01/2025 6:50 PM Jhoana Del Castillo RNRepositionedTurns self05/01/2025 6:50 PM Jhoana Sims RN Level of YanivojywyJzjqugjtsxh21/30/2025 6:50 PM Jhoana Sims RNHead of Bed ElevatedSelf pvmiuckqv83/30/2025 6:50 PM Jhoana Sims RNHeels/Feet Foot of bed elevated;Heels elevated off bed05/01/2025 6:50 PM Jhoana Sims RNRange of MotionActive;All /30/2025 6:50 PM Jhoana Sims RNAnti-Embolism DevicesBilateral;Sequential compression devices, below knee05/01/2025 6:50 PM Jhoana Sims RNAnti-Embolism InterventionOff 05/01/2025 6:50 PM Jhoana Sims RNPatient's mobility zoneZone 6:50 PM Jhoana Sims RNPositioning FrequencyAble to turn self05/01/2025 6:50 PM Jhoana Sims RN * HygieneQuestionAnswerDate of AssessmentAuthorHygieneBathed;Per self05/01/2025 11:00 PM Diya Moore, NA * PrecautionsQuestionAnswerDate of WhcdftisiuThhaisQgepwnyoiwcNabs36/30/2025 6:50 PM Jhoana Sims RN * Family/Significant Other CommunicationQuestionAnswerDate of AssessmentAuthor Family/Significant Other BdlalhQkfqkxmg83/30/2025 6:50 PM Jhoana Sims RN * Comfort and Environment InterventionsQuestionAnswerDate of AssessmentAuthor ComfortRepositioned;Gown mvuwsta4805/01/2025 6:50 PM Jhoana Sims RN * Safety Equipment at BedsideQuestionAnswerDate of AssessmentAuthorSafety Equipment at KczawdlBuyh31/30/2025 6:50 PM Jhoana Sims RN * ADL ScreeningQuestionAnswerDate of AssessmentAuthorDo you snore or wake up gasping for air?No05/01/2025 6:50 PM Ana Davies RNCan you bring in your CPAP/BiPAP from home?N/A1 6:50 PM Ana Davies RNPatient's Vision Adequate to Safely Complete Daily OdxjiwfmvnYjf30/30/2025 6:50 PM Ana Davies RNPatient's Judgment Adequate to Safely Complete Daily ActivitiesYes 05/01/2025 6:50 PM Ana Davies RNPatient's Memory Adequate to Safely Complete Daily GpncxdmvasNog89/30/2025 6:50 PM Ana Davies RNPatient Able to Express Needs/WfoxdcbLju96/30/2025 6:50 PM Ana Davies RNDressing Rgwhxvcxmqw59/30/2025 6:50 PM Ana Davies RNEEIweydhseBgkzcxwnmba97/30/2025 6:50 PM Ana Davies UKIlblugvDjkroagyhim95/30/2025 6:50 PM Ana Davies RNDVGzthyfaVqaaxuldkur38/30/2025 6:50 PM Ana Davies RNToiletingIndependent 05/01/2025 6:50 PM Ana Davies RNIn/Out FihMmignojrqrf82/30/2025 6:50 PM Ana Davies RNWalks in ZcifPgrruxefqvn58/30/2025 6:50 PM Ana Davies RNWeakness of AnimUycx35/30/2025 6:50 PM Ana Davies RNWeakness of Arms/PwwleSnbo46/30/2025 6:50 PM Ana Davies RNHearing - Right Ear Kqgjknprze08/30/2025 6:50 PM Ana Davies RNHearing - Left EarFunctional 05/01/2025 6:50 PM Ana Davies RNIs Patient Total Care?No05/01/2025 6:50 PM Ana Davies RNWhich is your dominant hand?Right05/01/2025 6:50 PM Ana Chang RN * ConsultsQuestionAnswerDate of AssessmentAuthorSpiritual Care Consult NeededNo 05/01/2025 6:51 PM Ana Davies RNSocial Services Consult NeededNo 05/01/2025 6:51 PM Ana Davies RN * Therapy ConsultsQuestionAnswerDate of AssessmentAuthorPT Evaluation Needed1 05/01/2025 6:50 PM Ana Davies RNOT Evaluation Nvypvd928 6:50 PM Ana Davies RNSLP Evaluation Ifwxte804 6:50 PM Ana Davies, BRYCE * Assistive DevicesQuestionAnswerDate of AssessmentAuthorAssistive Devices Wvdeqhzmbo27/30/2025 6:50 PM Ana Davies RN * [place] Fall Risk InterventionsQuestionAnswerDate of AssessmentAuthor [place] Fall Risk IglgkfvytachiTuipmrks20/30/2025 6:50 PM Jhoana Sims RN * Suicidal IdeationQuestionAnswerDate of AssessmentAuthor1. Wish to be (Lifetime)No05/01/2025 6:51 PM Ana Davies RN2. Non-Specific Active Suicidal Thoughts (Lifetime)No05/01/2025 6:51 PM Ana Davies RN * Pain AssessmentQuestionAnswerDate of AssessmentAuthorPain Interventions Qajhntmv27/30/2025 8:23 PM Benja Mar RNPatient's Stated Pain GoalNo pain05/01/2025 8:23 PM Benja Mar RNPain AssessmentNo/denies pain 05/01/2025 8:23 PM Benja Mar RN * NutritionQuestionAnswerDate of AssessmentAuthorDiet TypeHeart healthy 05/01/2025 6:50 PM Jhoana Sims RNFeedingAble to feed self05/01/2025 6:50 PM Jhoana Sims, BRYCE * Respiratory InterventionsQuestionAnswerDate of AssessmentAuthorRespiratory Interventions PerformedCough and deep apmhcnq59/30/2025 6:01 PM Jhoana Sims RN * Cough and Deep BreatheQuestionAnswerDate of AssessmentAuthorCough and Deep QsqetejHae55/30/2025 8:23 PM Benja Mar RN * IntegumentaryQuestionAnswerDate of AssessmentAuthorIntegumentary (WDL)WDL 05/01/2025 8:23 PM Benja Mar RN * Patient Strengths/Problem AreasQuestionAnswerDate of AssessmentAuthorStrengths (Must Choose Two)Communication Skills;Supportive Lvhcsw9805/01/2025 6:51 PM Ana Chang RNProblem AreasHealth Problems;Physical Acpwki8905/01/2025 6:51 PM Ana Davies RN * Environment [...] Damon RN * Weight Loss ScoreAnswerDate of JmkavurdsyHicmfi486/30/2025 7:45 PM Li Damon RN * Malnutrition ScoreAnswerDate of ZkzdawvfocDlirla656/30/2025 7:45 PM Li Damon RN documented as of this encounter Plan of Treatment DateTypeDepartmentCare Team (Latest Contact Info)Ucvzxazxdzm24/18/2025 10:00 AM ESTFollow-[facility] [address] [place] [address] Emilia To, JAVA WEB APPLICATION DEVELOPER [address] [place] [address] documented as of this encounter Visit Diagnoses Not on filedocumented in this encounter Care Teams Team MemberRelationshipSpecialtyStart DateEnd Date Jonh Perdomo DO [address] [address] PCP - Cjlvzty15/8/22documented as of this encounter
--- OUTSIDE RECORDS SUMMARY | 2025-05-07 10:01 | XMS_ITS | Clinical Summary ---
Author Organization [facility] Address [address] [place] [address] Care Team Providers Care Plumber Maintenance Name Role Phone Leanne John Primary Care Provider [phone] Allergies Active AllergyReactionsCriticalityNoted QywrCmnzbwrnIxylvcwnwcphFycrh62/08/2022 Erythromycin Base05/10/20229577Zlifhifwvgcok27/08/6734CbiroyzmvijCtafc46/08/2022 VgsttsqsjawtreLvqzWob06/04/2024 Medications MedicationSigDispense QuantityRefillsLast FilledStart DateEnd DateStatus allopurinol (Zyloprim) 100 mg tablet TAKE 1 TABLET BY MOUTH ONCE DAILY FOR 90 DAYSActive aspirin 81 mg EC tablet Take 1 tablet every day by oral route.Active ergocalciferol (Vitamin D-2) 1.25 MG (49769 UT) capsule Take 1 capsule by mouth 1 (one) time per week.Active ferrous sulfate 325 (65 Fe) MG tablet TAKE 1 TABLET BY MOUTH EVERY OTHER DAY FOR 90 DAYSActive potassium chloride CR (Klor-Con M20) 20 mEq ER tablet Take 40 mEq by mouth in the morning.Active insulin glargine (Lantus) 100 unit/mL (3 mL) pen Inject under the skin.11/05/2019Active nitroglycerin (Nitrostat) 0.4 mg SL tablet Indications:Coronary artery disease of [place] artery of [place] heart with stable angina pectorisPlace 1 tablet (0.4 mg) under the tongue every 5 (five) minutes if needed for chest pain. 25 tablet ctive midodrine (Proamatine) 5 mg tablet Indications:Orthostatic hypotensionTake 1 tablet (5 mg) by mouth if needed (as needed for orthostatic hypotension). 90 tablet 312412/5Active isosorbide mononitrate ER (Imdur) 30 mg 24 hr tablet Indications:Coronary artery disease involving [place] coronary artery of [place] heart without angina pectorisTake 1 tablet (30 mg) by mouth once daily as directed. Do not crush or chew. 90 tablet 5Active amLODIPine (Norvasc) 10 mg tablet Indications:Essential (primary) hypertensionTAKE 1 TABLET BY MOUTH EVERY DAY 90 tablet 5Active atorvastatin (Lipitor) 40 mg tablet Indications:Hyperlipidemia, unspecifiedTAKE 1 TABLET BY MOUTH EVERYDAY AT BEDTIME 90 tablet 5Active folic acid (Folvite) 1 mg tablet Take 1 mg by mouth in the morning.Active metoprolol tartrate (Lopressor) 50 mg tablet Indications:Essential (primary) hypertensionTake 1.5 tablets (75 mg) by mouth in the morning and at bedtime.5Active hydrALAZINE (Apresoline) 50 mg tablet Indications:Essential (primary) hypertensionTAKE 1 TABLET BY MOUTH TWO TIMES DAILY. 180 tablet 5Active levothyroxine (Synthroid, Levoxyl) 50 mcg tablet Indications:GoiterTake 1.5 tablets (75 mcg) by mouth in the morning. 45 tablet 5Active sodium bicarbonate 650 mg tablet Indications:Chronic diastolic heart failure (CMS/HCC)Take 1 tablet (650 mg) by mouth two times daily for 197 doses. 60 tablet /6Active bumetanide (Bumex) 1 mg tablet Indications:Chronic diastolic heart failure (CMS/HCC)Take 3 tablets (3 mg) by mouth two times daily. 90 tablet /6Active metOLazone (Zaroxolyn) 2.5 mg tablet Indications:Essential (primary) hypertensionTake 1 tablet (2.5 mg) by mouth if needed each day (daily as needed for shortness of breath or >2 pound weight gain.). 90 tablet 5Active levothyroxine (Synthroid, Levoxyl) 50 mcg tablet Take 1 tablet by mouth in the morning.05/03/2025Discontinued metOLazone (Zaroxolyn) 2.5 mg tablet Indications:Essential (primary) hypertensionTAKE 1 TABLET BY MOUTH IF NEEDED FOR SWELLING OR WEIGHT GAIN 90 tablet 103Discontinued metoprolol tartrate (Lopressor) 50 mg tablet Indications:Essential (primary) hypertensionTake 1.5 tablets (75 mg) by mouth in the morning and at bedtime. 270 tablet 303/Discontinued doxazosin (Cardura) 4 mg tablet Indications:Primary hypertensionTAKE 1 AND 1/2 TABLETS BY MOUTH TWICE A DAY 270 tablet 304//Discontinued(Stop Taking at Discharge) hydrALAZINE (Apresoline) 50 mg tablet Indications:Essential (primary) hypertensionTAKE 1 TABLET BY MOUTH TWO TIMES DAILY. 180 tablet Discontinued bumetanide (Bumex) 2 mg tablet Indications:Acute on chronic diastolic congestive heart failure (CMS/HCC)Take 2 tablets (4 mg) by mouth two times daily. 360 tablet 310Discontinued(Stop Taking at Discharge) Active Problems ProblemNoted DateDiagnosed DateAcute on chronic heart failure with preserved ejection fraction (HFpEF)05/01/2025 Assessment & Plan (05/02/2025 12:46 AM EDT): Start Bumex 2mg IV BID Weigh patient daily Fluid restriction Cardiology consult NPO at midnight for possible right heart cath Acute kidney czyhjl1404/30/20256578Gcyiiahgqbyvua27/30/3695Okffillpklutt77/30/2024 Kfgqwayctwd46/30/2024Microscopic pczdxcfok90/30/2024Secondary gmcnnmeseqijriydfhh88/30/2024Nontoxic multinodular tlgkoq7009/27/2023Orthostatic guqktlwmhxj02/09/2024 Assessment & Plan (07/11/2023 12:15 PM EST): [...] to evaluate symptoms and response. Carmina Cruz [employer] OPERATIONS MANAGER Division of Cardiology, [facility]- [phone] Pager- [phone] Email- [email or web address] Corneal scar, right eyery eyes/10/2023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 type1 diabetes erlzfyjb69/rimary open angle glaucoma (POAG) of both eyes, mild stage/enign essential hypertension 06/02/2022 Assessment & Plan (07/20/2022 10:35 AM EST): Hypertension is 137/62 Continue meds as prescribed. Bumex, doxazosin, hydralazine Bvfjwayk30/01/2178Icgoqm46/01/2022hronic diastolic heart kfpcxax9105/11/2022 Overview (07/20/2022): Images from the original note [...] edema, dyspnea and weight gain noted. Calling medicaid specialist Dr garcia for recommendations - in light [...] and she voiced understanding of instructions. Coronary bcnllzzhdsycxisp57/19/2022 Assessment & Plan (02/24/2023 2:26 PM EDT): [...] stable, continue GDMT- ASA, lipitor and metoprolol Enterprise Software Developer sent a note that he wants to add eyedrops- darzalamide/timolol to her regimen and to monitor for any side effects. Hypertensive fphetnue32/19/2022 Assessment & Plan (05/02/2025 12:46 AM EDT): Resume home medications Assessment & Plan (02/24/2023 2:26 PM EDT): Hypertension is Well-controlled blood pressure 131/71 Continue all medications Follow-up with nephrology as scheduled Assessment & Plan (05/11/2022 3:19 PM EST): Currently stable- 136/59 Continue all medications Stage 4 chronic kidney jnppxav1507/21/2021 Assessment & Plan (05/02/2025 12:46 AM EDT): Monitor kidney functions Avoid nephrotoxic drugs Appreciate nephrology recommendations Assessment & Plan (05/11/2022 3:20 PM EST): We will discussed with Dr. Garcia regarding further recommendations regarding her diuresis Sent for labs today and chest x-ray Kidney odmcuhx1107/31/2020Heart gjuuny2008/13/2019Recurrent herpes wmysybk2608/13/2019 Type 2 diabetes kkenwyix27/11/2020 Assessment & Plan (05/02/2025 12:46 AM EDT): Glucose management protocol Sliding scale Hypoglycemia management Encounters DateTypeDepartmentCare GbbrUbwhvqhvxic73/05/2025Orders Only [facility] [address] [place] [address] Julita Scherer MA Swelling (Primary Dx)05/07/2025Telephone [facility] [address] [place] [address] Julita Scherer MA 05/05/2025Telephone [facility] V[facility] Lab [address] [place] [address] Roxana Stark RN HF post discharge call and inpatient survey sent.05/02/2025 9:30 AM EDT - 05/02/2025 10:30 AM EDTSurgery [facility] Heart and [facility] Vascular Lab [address] [place] [phone] Rickey Jackson MD Right heart cath [50963 (CPT??) +1 more]05/01/2025 5:55 PM EDT - 05/04/2025 4:00 PM ESTHospital Encounter [facility] [address] [place] [address] Crispin Galeano MD Horen, Nicholas G., MD Chronic diastolic heart failure (CMS/HCC) (Primary Dx); Acute on chronic heart failure with preserved ejection fraction (HFpEF) (CMS/HCC); Coronary arteriosclerosis; Essential (primary) hypertension; Goiter Discharge Disposition: Home or Self Care (01)05/01/2025 1:20 PM EDTOffice Visit [place] [address] [place] [facility] [place] [address] Emilia To CNP Acute on chronic diastolic congestive heart failure (CMS/HCC) (Primary Dx); Stage 4 chronic kidney disease (CMS/HCC); Essential (primary) hypertension; Coronary artery disease involving [place] coronary artery of [place] heart without angina pectoris; History of coronary artery bypass surgery; Primary evzqrjswbayj87/30/6690Tgofkb49/30/2025Refill [facility] [address] [place] [facility] [place] [address] Bran Fish MD Essential (primary) aijpuraognkn25/27/2025Telephone [facility] [address] [place] [facility] [place] [address] Michelle Dias MA 04/25/2025Orders Only [facility] [address] [place] [facility] [place] [address] Michelle Dias MA Shortness of breath (Primary Dx)04/15/2025 2:20 PM EDTOffice Visit [facility] [address] [place] [facility] [place] [address] Emiila To CNP Acute on chronic diastolic congestive heart failure (CMS/HCC) (Primary Dx); Essential (primary) hypertension; Coronary artery disease involving [place] coronary artery of [place] heart without angina pectoris; History of coronary artery bypass surgery; Stage 4 chronic kidney disease (CMS/HCC); Primary hypertension; Orthostatic onizfcsxogc27/09/2025Orders Only [facility] [address] [place] [facility] [place] [address] Drea Robertson MD 04/10/2025Telephone [facility] [address] [place] [facility] [place] [address] Julita Scherer MA 04/07/2025 3:00 PM EDTOffice Visit [facility] [address] [place] [facility] [place] [address] Bran Fish MD Acute on chronic diastolic congestive heart failure (CMS/HCC) (Primary Dx); Coronary artery disease involving [place] coronary artery of [place] heart without angina pectoris; Essential (primary) hypertension; History of coronary artery bypass surgery; Stage 4 chronic kidney disease (CMS/HCC)02/04/2025Refill [facility] [address] [place] [facility] [place] [address] Bran Fish MD Essential (primary) hypertensionfrom Last 3 Months Immunizations ImmunizationAdministration DatesNext DueHep B, adult06/20/2000,03/07/2000, 12/01/1999 Family History Medical HistoryRelationNameCommentsHeart attackFatherHeart attackMotherHeart failureMotherRelationNameStatusCommentsFatherDeceasedMotherDeceased Social History Tobacco UseTypesPacks/DayYears UsedDateSmoking Tobacco: NeverSmokeless Tobacco: Never Tobacco Cessation:Counseling Given: Not Answered Alcohol UseStandard Drinks/WeekCommentsNot Currently0 (1 standard drink = 0.6 oz pure alcohol)[facility] UtilitiesAnswerDate RecordedIn the past 12 months has the [employer], gas, oil, or water [employer] threatened to shut off services in your [...] were you homeless or living in a fci (including now)? No05/01/2025Hunger Vital SignAnswerDate RecordedWithin the past 12 months, you worried that your food would run out before you got the money to buymore.Never true05/01/2025Ran Out of Food in the Last YearNot on file05/01/2025 CommentsUnknownSex and Gender InformationValueDate RecordedSex Assigned at Quozll0105/19/2022 6:11 PM ESTLegal NtiEedxkk86/30/2022 12:22 AM EDTGender JbhjnuvwJnzeip02/17/2022 6:11 PM ESTSexual OrientationHeterosexual or Straight 05/19/2022 6:11 PM EST Last Filed Vital Signs Vital SignReadingTime TakenCommentsBlood Rburcuuw273/6705/04/2025 12:25 PM EST Rpryn261705/04/2025 12:25 PM NHVEwnmvyzpogd91 ??C (98.6 ??F)05/04/2025 12:25 PM ESTRespiratory Zsbm295707/04/2024 12:25 PM ESTOxygen Wmnnmmkume46%05/04/2025 12:25 PM ESTInhaled Oxygen Concentration--Bjnzzm57.6 kg (127 lb)05/04/2025 4:43 AM EST Hxriut782.2 cm (4' 8 )05/01/2025 6:01 PM EDTBody Mass Index28.4705/01/2025 6:01 PM EDT Plan of Treatment DateTypeDepartmentCare Team (Latest Contact Info)Cmnddketlak46/18/2025 10:00 AM ESTFollow-Up [facility] [place] [address] [place] [address] Emilia To, [employer]AMP MAKER [address] [place] [address] Health MaintenanceDue DateLast DoneCommentsCT Zvhoyldixsna1951Colonoscopy 1951olorectal Cancer Ojvbuxypw1951FIT-DNA1951FIT1950 FOBT1951Medicare Annual Wellness (AWV)04/23/19516147Ydxejymavpqkx1951 Diabetes: Retinopathy Colqkqrcq54/22/1961epression Nxaguayaz41/22/1963 Pneumococcal Vaccine: 50+ Years (1 of 2 - PCV)1970Adult Jfpwnmw7804/23/1973 Yhryjcgxu08/22/1991Zoster Vaccines (1 of 2)2001Diabetes: Hemoglobin A1C /OVID-19 Vaccine (1 - season)2025Influenza Vaccine (#1)2025Fall Risk Hikqgfcjy28HIB VaccinesAged OutNo longer eligible based on patient's age to complete this topicHPV Vaccines Aged OutNo longer eligible based on patient's age to complete this topicIPV VaccinesAged OutNo longer eligible based on patient's age to complete this topic Meningococcal B VaccineAged OutNo longer eligible based on patient's age to complete this topicMeningococcal VaccineAged OutNo longer eligible based on patient's age to complete this topicRotavirus VaccinesAged OutNo longer eligible based on patient's age to complete this topic Procedures Procedure NamePriorityDate/TimeAssociated DiagnosisCommentsPOCT GLUCOSE METER UNSOLICITED WQOJODJQaiqdtl83/02/2025 11:23 AM EST BASIC METABOLIC PANELPending Wunqjibaz64/02/2025 8:02 AM EST CBCPending Szvahcgco84/02/2025 8:02 AM EST POCT GLUCOSE METER UNSOLICITED VOGLJGCAzvwllk63/01/2025 8:12 PM EDT POCT GLUCOSE METER UNSOLICITED HYTRBVETsbiqla56/01/2025 4:41 PM EDT URINALYSIS MICROSCOPICPending Pbdwyicvv07/01/2025 3:01 PM EDT URINALYSISPending Morxcppqi34/01/2025 3:01 PM EDT CREATININE, URINE, RANDOMPending Zicwiczgv94/01/2025 3:01 PM EDT PROTEIN, URINE, RANDOMPending Vsoqqellp12/01/2025 3:01 PM EDT HOME O2 EVAL (DESATURATION SCREEN)Qhkgiaq0605/03/2025 12:19 PM EDTPOCT GLUCOSE METER UNSOLICITED LNBYFDCHbrelsc70/01/2025 11:41 AM EDT POCT GLUCOSE METER UNSOLICITED OZSRMUSQlpbjry49/01/2025 7:59 AM EDT PTH, INTACTAdd-On05/03/2025 7:15 AM EDT PHOSPHORUSAdd-On05/03/2025 7:15 AM EDT BASIC METABOLIC PANELPending Rbupmqqat80/01/2025 7:15 AM EDT CBCPending Ykugnprbh45/01/2025 7:15 AM EDT POCT GLUCOSE METER UNSOLICITED QVLASJTMvtedmu01/31/2025 8:10 PM EDT POCT GLUCOSE METER UNSOLICITED NXYFWUWWpybann54/31/2025 5:37 PM EDT XR CHEST 1 CKCXUoimnkd80/31/2025 2:14 PM EDT POCT GLUCOSE METER UNSOLICITED JVGRSSZZsdcgdq85/31/2025 12:18 PM EDT RIGHT HEART OQFUJtfnxfx06/31/2025 11:44 AM EDT Acute on chronic heart failure with preserved ejection fraction (HFpEF) ([facility]) %RUI9Zbzmocp29/31/2025 11:42 AM EDT ECG 12-EPRLGzhbbsj99/31/2025 9:14 AM EDT COMPLETE ECHO (TTE)Hcfgbfb3505/02/2025 8:30 AM EDT RETICULOCYTE PANELAdd-On05/02/2025 5:46 AM EDT IRON AND TIBCAdd-On05/02/2025 5:46 AM EDT FERRITINAdd-On05/02/2025 5:46 AM EDT VITAMIN Q35Vgr-Of23/31/2025 5:46 AM EDT FOLATEAdd-On05/02/2025 5:46 AM EDT TSH3 REFLEX TO CY6Dlf-Md35/31/2025 5:46 AM EDT MATFoggawa36/31/2025 5:46 AM EDT BASIC METABOLIC HVKJWUtcmaxd43/31/2025 5:46 AM EDT WBSIHLDNYBESF67/31/2025 12:24 AM EDT B-TYPE NATRIURETIC IZZBGKBQBQF12/31/2025 12:24 AM EDT BASIC METABOLIC NQCGTSBLM28/31/2025 12:24 AM EDT RQPBANV3705/02/2025 12:24 AM EDT BASIC METABOLIC FSRTCBflijpg56/09/2025 2:45 PM EDTHEMOGLOBIN L9IQjpueye 07/10/2020 7:09 PM EST from Last 3 Months or Most Recently Relevant to Health Maintenance Results * (ABNORMAL) POCT glucose meter (05/04/2025 11:23 AM EST) Only the most recent of8 resultswithin the time period is included. ComponentValueRef RangeTest MethodAnalysis TimePerformed AtPathologist Signature Glucose GNW356(H)70 - 105 mg/dL05/04/2025 11:35 AM [facility] ([facility]) Comment:jarizmeSpecimen (Source)Anatomical Location / LateralityCollection Method / VolumeCollection TimeReceived TimeBloodCapillary blood specimen / Tvunjlp6805/04/2025 11:23 AM EST05/04/2025 11:35 AM EST Narrative [facility] ([facility]) - 05/04/2025 11:35 AM EST Waived Testing in the ED is performed under the ED CLIA certificate #[id number]. Authorizing ProviderResult TypeResult StatusEh SNEED BLOOD ORDERABLESFinal ResultPerforming OrganizationAddressCity/State/ZIP CodePhone Number [facility] ([facility]) [address] [place] [address] * (ABNORMAL) CBC (05/04/2025 8:02 AM EST) Only the most recent of4 resultswithin the time period is included. ComponentValueRef RangeTest MethodAnalysis TimePerformed AtPathologist Signature Auto WBC8.264.00 - 10.60 10*3/uL05/04/2025 8:28 AM [facility] ([facility]) RBC2.89(L)3.80 - 5.00 10*6/uL05/04/2025 8:28 AM [facility] ([facility]) Hemoglobin8.6(L)12.0 - 15.0 g/dL05/04/2025 8:28 AM [facility] ([facility]) Ksbdogklwf39.0(L)36.0 - 45.0 %05/04/2025 8:28 AM [facility] ([facility]) MCV90.082.0 - 98.0 fL05/04/2025 8:28 AM [facility] ([facility])MCH29.827.0 - 33.0 pg05/04/2025 8:28 AM [facility] ([facility])MCHC33.132.0 - 35.0 g/dL05/04/2025 8:28 AM [facility] ([facility])RDW15.6(H)11.5 - 15.0 % 05/04/2025 8:28 AM [facility] ([facility])Azpqvszki612337 - 400 10*3/uL 05/04/2025 8:28 AM [facility] ([facility])Specimen (Source)Anatomical Location / LateralityCollection Method / VolumeCollection TimeReceived TimeBlood Venous blood specimen / UnknownVenipuncture / Dcymnbx2205/04/2025 8:02 AM EST 05/04/2025 8:16 AM EST Narrative Authorizing ProviderResult TypeResult StatusNicchelsea Higuera MDLAB BLOOD ORDERABLESFinal ResultPerforming OrganizationAddressCity/State/ZIP CodePhone Number [facility] ([facility]) [address] [place] [address] * (ABNORMAL) Basic metabolic panel (05/04/2025 8:02 AM EST) Only the most recent of5 resultswithin the time period is included. ComponentValueRef RangeTest MethodAnalysis TimePerformed AtPathologist Signature Gujzbb688818 - 145 mmol/L107/04/2024 8:41 AM [facility] ([facility]) Potassium4.03.5 - 5.1 mmol/L107/04/2024 8:41 AM [facility] ([facility]) Puixvhuw02435 - 107 mmol/L107/04/2024 8:41 AM [facility] ([facility])CO221 21 - 31 mmol/L107/04/2024 8:41 AM [facility] ([facility])BUN64(H)7 - 25 mg/dL05/04/2025 8:41 AM [facility] ([facility])Creatinine2.55(H)0.60 - 1.20 mg/dL05/04/2025 8:41 AM [facility] ([facility])Aldnybz466(H)70 - 100 mg/dL05/04/2025 8:41 AM [facility] ([facility])Calcium8.68.6 - 10.3 mg/dL 05/04/2025 8:41 AM [facility] ([facility])Anion Vji277 - 20 mmol/L 05/04/2025 8:41 AM [facility] ([facility])eGFR19.2(L)>60.0 mL/min/1.73m*2 05/04/2025 8:41 AM [facility] ([facility])Comment:[facility]???s estimated glomerular filtration rate (eGFR) will no longer include consideration of race in its calculation. The National Kidney Foundation???s eGFR Task Force developed new recommendations for the estimation of the glomerular filtration rate in the [place] They recommend immediate implementation of the new equation refit without the race variable in all la boratories because the calculation does not include race. In addition to not including race in the calculation and reporting, it included diversity in its development, and has acceptable performance characteristics and potential consequences that do not disproportionately affect any one group of individuals. BUN/Creatinine Ratio25. 8:41 AM [facility] ([facility])Specimen (Source)Anatomical Location / LateralityCollection Method / VolumeCollection TimeReceived TimeBloodVenous blood specimen / UnknownVenipuncture / Unknown 05/04/2025 8:02 AM EST05/04/2025 8:15 AM EST Narrative Authorizing ProviderResult TypeResult StatusEh SNEED BLOOD ORDERABLESFinal ResultPerforming OrganizationAddressCity/State/ZIP CodePhone Number [facility]) [address] [place] [address] * Protein, urine, random (05/03/2025 3:01 PM EDT)ComponentValueRef RangeTest MethodAnalysis TimePerformed AtPathologist SignatureProtein, Ur105.9mg/dL 05/03/2025 3:31 PM [facility] ([facility])Comment:There are no established reference values for random urine specimens.Specimen (Source) Anatomical Location / LateralityCollection Method / VolumeCollection Time Received TimeUrineUrine specimen obtained by clean catch procedure / Unknown Non-blood Collection / Whdtsmb8905/03/2025 3:01 PM EDT107/03/2024 3:10 PM EDT Narrative Authorizing ProviderResult TypeResult StatusJazzmine SNEED URINE ORDERABLESFinal ResultPerforming OrganizationAddressCity/State/ZIP CodePhone Number [address] [address] * Creatinine, urine, random (05/03/2025 3:01 PM EDT)ComponentValueRef RangeTest MethodAnalysis TimePerformed AtPathologist SignatureCreatinine, Ur40.026 - 299 mg/dL05/03/2025 3:31 PM [facility] ([facility])Specimen (Source) Anatomical Location / LateralityCollection Method / VolumeCollection Time Received TimeUrineUrine specimen obtained by clean catch procedure / Unknown Non-blood Collection / Qildtnx4305/03/2025 3:01 PM EDT107/03/2024 3:10 PM EDT Narrative Authorizing ProviderResult TypeResult StatusJazzmine SNEED URINE ORDERABLESFinal ResultPerforming OrganizationAddressty/State/ZIP CodePhone Number [facility]) [address] [place] [address] * (ABNORMAL) Urinalysis microscopic (05/03/2025 3:01 PM EDT)ComponentValueRef RangeTest MethodAnalysis TimePerformed AtPathologist SignatureRBC, Urine3-5(A) None Seen, 0-2 /HPF05/03/2025 3:25 PM [facility] ([facility])WBC, Urine 0-2None Seen, 0-2 /HPF05/03/2025 3:25 PM [facility] ([facility])Squamous Epithelial, UrineFewNone Seen, Occasional, Few /LPF107/03/2024 3:25 PM [facility] ([facility])Mucus, UrineOccasionalNone Seen, Occasional, Few /LPF 05/03/2025 3:25 PM [facility] ([facility])Specimen (Source)Anatomical Location / LateralityCollection Method / VolumeCollection TimeReceived Time UrineUrine specimen obtained by clean catch procedure / UnknownNon-blood Collection / Nsrxvcl7705/03/2025 3:01 PM EDT107/03/2024 3:10 PM EDT Narrative Authorizing ProviderResult TypeResult StatusMuhammakevon SNEED URINE ORDERABLESFinal ResultPerforming OrganizationAddressCity/State/ZIP CodePhone Number [facility] ([facility]) [address] [place] [address] * (ABNORMAL) Urinalysis (05/03/2025 3:01 PM EDT)ComponentValueRef RangeTest MethodAnalysis TimePerformed AtPathologist SignatureColor, UrineLight-Yellow Colorless, Yellow, Light-Hgvunp7705/03/2025 3:25 PM [facility] ([facility])Clarity, MzthlBjclxHtxbe50/01/2025 3:25 PM [facility] ([facility])pH, Urine5.05.0 - 8.0 pH05/03/2025 3:25 PM [facility] ([facility])Leukocytes, ZomqaPtjlemybCgoqnecj27/01/2025 3:25 PM [facility] ([facility])Nitrite, NefigCylexaysMbuyuqjj15/01/2025 3:25 PM [facility] ([facility])Protein, Urine30(A)Negative mg/dL05/03/2025 3:25 PM [facility] ([facility])Glucose, UrineNormalNormal mg/dL05/03/2025 3:25 PM EDT [facility] ([facility])Bilirubin, JcdzeIziafckwVeopfkfk27/01/2025 3:25 PM [facility] ([facility])Specific [place], Urine1.008(L)1.010 - 1.030 05/03/2025 3:25 PM [facility] ([facility])Ketones, UrineNegativeNegative mg/dL05/03/2025 3:25 PM [facility] ([facility])Blood, UrineNegative Ksmexgbh27/01/2025 3:25 PM [facility] ([facility])Urobilinogen, Urine NormalNormal mg/dL05/03/2025 3:25 PM [facility] ([facility])Specimen (Source)Anatomical Location / LateralityCollection Method / VolumeCollection TimeReceived TimeUrineUrine specimen obtained by clean catch procedure / UnknownNon-blood Collection / Wmuuuks5905/03/2025 3:01 PM EDT107/03/2024 3:10 PM EDT Narrative Authorizing ProviderResult TypeResult StatusMumora SNEED URINE ORDERABLESFinal ResultPerforming OrganizationAddressCity/State/ZIP CodePhone Number [facility] ([facility]) [address] [place] [address] * Phosphorus (05/03/2025 7:15 AM EDT)ComponentValueRef RangeTest MethodAnalysis TimePerformed AtPathologist SignaturePhosphorus4.22.5 - 5.0 mg/dL05/03/2025 1:33 PM [facility] ([facility])Specimen (Source)Anatomical Location / LateralityCollection Method / VolumeCollection TimeReceived TimeBloodVenous blood specimen / UnknownVenipuncture / Jckebiw3305/03/2025 7:15 AM EDT107/03/2024 7:40 AM EDT Narrative Authorizing ProviderResult TypeResult StatusMumora SNEED BLOOD ORDERABLESFinal ResultPerforming OrganizationAddressCity/State/ZIP CodePhone Number [facility] ([facility]) [address] [place] [address] * (ABNORMAL) PTH, intact (05/03/2025 7:15 AM EDT)ComponentValueRef RangeTest MethodAnalysis TimePerformed AtPathologist SotxiqvfvICE402(H)12 - 88 pg/mL 05/03/2025 1:53 PM EDTCL[facility] ([facility])Specimen (Source)Anatomical Location / LateralityCollection Method / VolumeCollection TimeReceived Time BloodVenous blood specimen / UnknownVenipuncture / Apdqwqy5705/03/2025 7:15 AM EDT107/03/2024 7:40 AM EDT Narrative Authorizing ProviderResult TypeResult StatusMuhammad Royer Kelsey MDK[facility] BLOOD ORDERABLESFinal ResultPerforming OrganizationAddressCity/State/ZIP CodePhone Number [facility] ([facility]) [address] [place] [address] * XR chest 1 view (05/02/2025 2:14 [...] StatusEh Higuera MDIMG XR PROCEDURESFinal Result * RIGHT HEART CATH (05/02/2025 11:44 AM [...] ??This was exchanged out for a 6 Filipino 11 cm sheath. Right heart catheterization was [...] with preserved ejection fraction Authorizing ProviderResult TypeResult StatusGemarla Fish [facility] CARDIAC CATH PROCEDURESFinal Result * (ABNORMAL) %HbO2 (05/02/2025 11:42 AM EDT)ComponentValueRef RangeTest Method Analysis TimePerformed AtPathologist ZkegndmrdT4Ig%64.1(L)90.0 - 95.0 % 05/02/2025 11:42 AM EDTCL[facility] ([facility])Specimen (Source)Anatomical Location / LateralityCollection Method / VolumeCollection TimeReceived Time BloodVenous blood specimen / Cbyqcpu0705/02/2025 11:42 AM EDT1 11:42 AM EDT Narrative Authorizing ProviderResult TypeResult Meliton SNEED POINT OF CARE TEST DOCKED DEVICE UNSOLICITED RESULTSFinal ResultPerforming Organization AddressCity/State/ZIP CodePhone Number [facility] ([facility]) [address] [place] [address] * ECG 12 lead (05/02/2025 9:14 AM EDT)ComponentValueRef RangeTest MethodAnalysis TimePerformed AtPathologist SignatureVentricular Jcpt20EPUMZ MUSEAtrial Rate 74BPMGE MUSEPR Rpjkfmkt704cnFT MUSEQRS HGDIMPUE78ikZL MUSEQT Pebnilgh711uoUT MUSEQTC CALCULATION(FREDI)455msGE MUSEP Qyre07nkwdskkPV MUSER-Rnjb65dmrwqigSX MUSET Wave Gaui107qbqbzhmAI MUSESpecimen (Source)Anatomical Location / LateralityCollection Method / VolumeCollection TimeReceived Time05/02/2025 9:12 AM EDT1 4:37 PM EDT Impressions GE MUSE - 05/02/2025 4:37 PM EDT Normal sinus rhythm Abnormal QRS-T angle, consider primary T wave abnormality Abnormal ECG When compared with ECG of 14-JUL-2020 06:44, ST no longer elevated in Lateral Nonspecific T wave abnormality now evident in Lateral Confirmed by Chela FERRO SAMER J. (57) on 05/02/2025 4:37:20 PM Narrative Procedure Note Luis Ferro MD - 05/02/2025 IMPRESSION: Normal sinus rhythm Abnormal QRS-T angle, consider primary T wave abnormality Abnormal ECG When compared with ECG of 14-JUL-2020 06:44, ST no longer elevated in Lateral Nonspecific T wave abnormality now evident in Lateral Confirmed by Chela FERRO SAMER J. (57) on 05/02/2025 4:37:20 PM Authorizing ProviderResult TypeResult StatusNicchelsea Higuera MDECG ORDERABLES Final ResultPerforming OrganizationAddressCity/State/ZIP CodePhone Number GE [facility]USE * COMPLETE ECHO (TTE) (05/02/2025 8:30 AM EDT)Anatomical RegionLaterality ModalityOtherSpecimen (Source)Anatomical Location / LateralityCollection Method / VolumeCollection TimeReceived Time05/02/2025 7:57 AM EDT Narrative 05/02/2025 12:21 PM EDT 1 1 [facility] Heart Station [address] [place] [address] [phone] (fax) Echocardiogram-[facility] Name: CLAUDIA POLO Study Date: 05/02/2025 07:57 AM B/P: 164 mmHg/64 mmHg HR: 72 bpm Date of : 1950 Location: [facility] Height: 56 in. Age: 75 year(s) [...] No pericardial effusion. Procedure Staff Reading Group: [facility] Referring Physician: JOHN PERDOMO ??Floral Clerk: HALLE Jacob Ordering Physician: EH HIGUERA ?? Procedure Note Arturo Baker MD - 05/02/2025 1 1 [facility] Heart Station [address] [place] [address] [phone] (fax) Echocardiogram-[facility] Name: CLAUDIA POLO Study Date: 05/02/2025 07:57 AM B/P: 164 mmHg/64 mmHg HR: 72 bpm Date of : 1950 Location: [facility] Height: 56 in. Age: 75 year(s) [...] No pericardial effusion. Procedure Staff Reading Group: [facility] Referring Physician: JOHN PERDOMO Floral Clerk: HALLE Jacob Ordering Physician: EH HIGUERA Authorizing ProviderResult TypeResult Meliton Higuera [facility] ECHO PROCEDURESFinal Result * TSH3 Reflex to FT4 (05/02/2025 5:46 AM EDT)ComponentValueRef RangeTest Method Analysis TimePerformed AtPathologist SignatureTSH4.540.34 - 5.60 mIU/L 05/02/2025 2:16 PM [facility] ([facility])Specimen (Source)Anatomical Location / LateralityCollection Method / VolumeCollection TimeReceived Time BloodVenous blood specimen / UnknownVenipuncture / Kuraojh4205/02/2025 5:46 AM EDT1 6:07 AM EDT Narrative Authorizing ProviderResult TypeResult Meliton Higuera [facility] BLOOD ORDERABLESFinal ResultPerforming OrganizationAddressCity/State/ZIP CodePhone Number [facility]) [address] [place] [address] * (ABNORMAL) Iron and TIBC (05/02/2025 5:46 AM EDT)ComponentValueRef RangeTest MethodAnalysis TimePerformed AtPathologist UbngknmfsKdtz0832 - 212 ug/dL 05/02/2025 6:25 PM [facility] ([facility])QHNE910(L)250 - 450 ug/dL 05/02/2025 6:25 PM [facility] ([facility])Iron Bwofggjjzz0713 - 50 % 05/02/2025 6:25 PM [facility] ([facility])MCAA814.0155.0 - 355.0 ug/dL 05/02/2025 6:25 PM [facility] ([facility])Specimen (Source)Anatomical Location / LateralityCollection Method / VolumeCollection TimeReceived Time BloodVenous blood specimen / UnknownVenipuncture / Raqlnfm7605/02/2025 5:46 AM EDT1 6:07 AM EDT Narrative Authorizing ProviderResult TypeResult StatusEh SNEED BLOOD ORDERABLESFinal ResultPerforming OrganizationAddressCity/State/ZIP CodePhone Number [facility]) [address] [place] [address] * (ABNORMAL) Reticulocyte panel (05/02/2025 5:46 AM EDT)ComponentValueRef Range Test MethodAnalysis TimePerformed AtPathologist SignatureRetic Ct Abs0.1054(H) 0.0250 - 0.1000 10*6/uL05/02/2025 6:17 PM [facility] ([facility])Retic Ct Pct3.50(H)0.50 - 1.80 %05/02/2025 6:17 PM [facility] ([facility]) Immature Reticulocyte Fraction %22.4(H)2 - 16 %05/02/2025 6:17 PM [facility])Reticulocyte Nukhkmrrqy53.928.0 - 36.0 pg05/02/2025 6:17 PM [facility] ([facility])Specimen (Source)Anatomical Location / LateralityCollection Method / VolumeCollection TimeReceived TimeBloodVenous blood specimen / UnknownVenipuncture / Ikdeexi3005/02/2025 5:46 AM EDT1 6:09 AM EDT Narrative Authorizing ProviderResult TypeResult StatusEh SNEED BLOOD ORDERABLESFinal ResultPerforming OrganizationAddressCity/State/ZIP CodePhone Number [facility]) [address] [place] [address] * Folate (05/02/2025 5:46 AM EDT)ComponentValueRef RangeTest MethodAnalysis Time Performed AtPathologist QidwesvioHhusay65.266.6 - 1,000 ng/mL05/02/2025 6:48 PM [facility])Specimen (Source)Anatomical Location / LateralityCollection Method / VolumeCollection TimeReceived TimeBloodVenous blood specimen / UnknownVenipuncture / Qrdtbti9105/02/2025 5:46 AM EDT1 6:07 AM EDT Narrative Authorizing ProviderResult TypeResult StatusEh Higuera [facility] BLOOD ORDERABLESFinal ResultPerforming OrganizationAddressCity/State/ZIP CodePhone Number [address] [address] * Ferritin (05/02/2025 5:46 AM EDT)ComponentValueRef RangeTest MethodAnalysis TimePerformed AtPathologist YdtecqjftHylkpfbe621.011.0 - 307.0 ng/mL05/02/2025 6:48 PM [facility] ([facility])Specimen (Source)Anatomical Location / LateralityCollection Method / VolumeCollection TimeReceived TimeBloodVenous blood specimen / UnknownVenipuncture / Xipwgfe6105/02/2025 5:46 AM EDT1 6:07 AM EDT Narrative Authorizing ProviderResult TypeResult StatusEh Higuera [facility] BLOOD ORDERABLESFinal ResultPerforming OrganizationAddressCity/State/ZIP CodePhone Number [address] [address] * Vitamin B12 (05/02/2025 5:46 AM EDT)ComponentValueRef RangeTest MethodAnalysis TimePerformed AtPathologist SignatureVitamin B-[id number] - 914 pg/mL05/02/2025 6:48 PM [facility])Comment: REFERENCE RANGES: 180-914 pg/mL ??Normal 145-179 pg/mL ??Indeterminate <145 pg/mL Deficient Specimen (Source)Anatomical Location / LateralityCollection Method / Volume Collection TimeReceived TimeBloodVenous blood specimen / UnknownVenipuncture / Dewrenh8105/02/2025 5:46 AM EDT1 6:07 AM EDT Narrative Authorizing ProviderResult TypeResult StatusEh Higuera [facility] BLOOD ORDERABLESFinal ResultPerforming OrganizationAddressCity/State/ZIP CodePhone Number [facility]) [address] [place] [address] * (ABNORMAL) B-type natriuretic peptide (05/02/2025 12:24 AM EDT)ComponentValue Ref RangeTest MethodAnalysis TimePerformed AtPathologist SignatureBNP1,236(H)0 - 100 pg/mL05/02/2025 1:10 AM [facility])Specimen (Source) Anatomical Location / LateralityCollection Method / VolumeCollection Time Received TimeBloodVenous blood specimen / UnknownVenipuncture / Unknown 05/02/2025 12:24 AM EDT1 12:33 AM EDT Narrative Authorizing ProviderResult TypeResult StatusKerline Patel [facility] BLOOD ORDERABLESFinal ResultPerforming OrganizationAddressCity/State/ZIP CodePhone Number [facility]) [address] [place] [address] * Magnesium (05/02/2025 12:24 AM EDT)ComponentValueRef RangeTest MethodAnalysis TimePerformed AtPathologist SignatureMagnesium2.11.9 - 2.7 mg/dL05/02/2025 1:00 AM [facility])Specimen (Source)Anatomical Location / LateralityCollection Method / VolumeCollection TimeReceived TimeBloodVenous blood specimen / UnknownVenipuncture / Ucetfix3105/02/2025 12:24 AM EDT 05/02/2025 12:37 AM EDT Narrative Authorizing ProviderResult TypeResult StatusKerline Patel [facility] BLOOD ORDERABLESFinal ResultPerforming OrganizationAddressCity/State/ZIP CodePhone Number [facility]) [address] [place] [address] * (ABNORMAL) Hemoglobin A1c (07/10/2020 7:09 PM EST)ComponentValueRef RangeTest MethodAnalysis TimePerformed AtPathologist SignatureHemoglobin A1C6.2(H)4.0 - 6.0 %LAB CONVERSIONSEstimated Average Upcntqh463eypg/LLAB CONVERSIONSSpecimen (Source)Anatomical Location / LateralityCollection Method / VolumeCollection TimeReceived Time07/10/2020 7:09 PM EST07/10/2020 7:26 PM EST Narrative LAB CONVERSIONS - 07/12/2020 11:33 AM EST No: Do not add to previous draw Authorizing ProviderResult TypeResult StatusAlexandria Sirleaf [facility] BLOOD ORDERABLESFinal ResultPerforming OrganizationAddressCity/State/ZIP CodePhone Number LAB CONVERSIONS from Last 3 Months or Most Recently Relevant [place] [address] Advance Directives * Full Code (Latest Code Status on File) Date ActivatedDate DgpvsqtlejiEwbrmtyp38/30/2025 8:06 PM05/04/2025 7:17 PM Care Teams Team MemberRelationshipSpecialtyStart DateEnd Date John Perdomo DO [address] [place] [address] [facility]05/10/22
--- OUTSIDE RECORDS SUMMARY | 2025-05-07 10:01 | XMS_ITS | Encounter Summary ---
Author Organization [facility] Address [address] [place] [address] Care Team Providers Care Copy Clerk Name Role Phone John Perdomo DO Primary Care Provider [phone] Reason for Visit * ReasonOnset DateCommentsHF post discharge call and inpatient survey sent. 05/05/2025 Encounter Details DateTypeDepartmentCare Team (Latest Contact Info)Iztwwyyprki86/03/2025Telephone [facility] Vascular Lab [address] [place] [phone] Roxana Stark RN HF post discharge call and inpatient survey sent. Social History Tobacco UseTypesPacks/DayYears UsedDateSmoking Tobacco: NeverSmokeless Tobacco: NeverAlcohol UseStandard Drinks/WeekCommentsNot Currently0 (1 standard drink = 0.6 oz pure alcohol)[facility] UtilitiesAnswerDate RecordedIn the past 12 months has the [employer], gas, oil, or water [employer] threatened to shut off services in your [...] were you homeless or living in a group home (including now)? No05/01/2025Hunger Vital SignAnswerDate RecordedWithin the past 12 months, you worried that your food would run out before you got the money to buymore.Never true05/01/2025Ran Out of Food in the Last YearNot on file05/01/2025 CommentsUnknownSex and Gender InformationValueDate RecordedSex Assigned at Nrotns1605/19/2022 6:11 PM ESTLegal KfqIdfgxp61/30/2022 12:22 AM EDTGender EcwozzcqJeqwky47/17/2022 6:11 PM ESTSexual OrientationHeterosexual or Straight 05/19/2022 6:11 PM ESTdocumented as of this encounter Miscellaneous Notes * Telephone Encounter - Roxana Stark RN - 05/05/2025 11:40 AM EST Discharge date: 05/04/25 Call date: 05/05/25 Spoke with: patient HF Follow-up date: 05/20/25 Med reconciliation completed: pt declined Questions/Concerns: Patient stated she has been a little tired since discharge, but she denied any CP and stated her SOB is back to baseline. 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 Follow up appts reviewed with pt. Pt asked about cardiac rehab and mentioned she lives in [place]. Sales Agent Financial Report Service informed pt she can have the referral faxed to the cardiac rehab closer to her home. Patient is aware of her follow up appt with cardiology.Sales Agent [employer] offered to move her follow-up to a sooner date but pt declined. Pt agreed to call anything changes and she would like to be seen sooner. documented in this encounter Plan of Treatment DateTypeDepartmentCare Team (Latest Contact Info)Newvqaspmwj80/18/2025 10:00 AM ESTFollow-Up [facility] Heart at [facility] [address] [place] [address] Emilia To, DIGITAL LIBRARIAN [address] [place] [address] documented as of this encounter Visit Diagnoses Not on filedocumented in this encounter Care Teams Team MemberRelationshipSpecialtyStart DateEnd Date John Perdomo DO [address] [place] [address] PCP - Qqxebam10/8/22documented as of this encounter
--- OUTSIDE RECORDS SUMMARY | 2025-05-07 10:01 | XMS_ITS | Encounter Summary ---
Author Organization [facility] Address [address] [place] [address] Care Team Providers Care Book Cutter Name Role Phone John Perdomo Primary Care Provider [phone] Reason for Visit * ReasonCommentsMed Refill Encounter Details DateTypeDepartmentCare Team (Latest Contact Info)Cvvamtyosrx13/30/2025Refill [facility] Heart at [facility] [address] [place] [address] Bran Fish MD [address] [facility] [address] [facility] [place] [address] Essential (primary) hypertension Social History Tobacco UseTypesPacks/DayYears UsedDateSmoking Tobacco: NeverSmokeless Tobacco: NeverAlcohol UseStandard Drinks/WeekCommentsNot Currently0 (1 standard drink = 0.6 oz pure alcohol)[facility] UtilitiesAnswerDate RecordedIn the past 12 months has the [employer], gas, oil, or water [employer] threatened to shut off services in your [...] were you homeless or living in a chcf (including now)? No05/01/2025Hunger Vital SignAnswerDate RecordedWithin the past 12 months, you worried that your food would run out before you got the money to buymore.Never true05/01/2025Ran Out of Food in the Last YearNot on file05/01/2025 CommentsUnknownSex and Gender InformationValueDate RecordedSex Assigned at Hoaaww7305/19/2022 6:11 PM ESTLegal AayVqtnor59/30/2022 12:22 AM EDTGender IrxijutwEkcloo29/17/2022 6:11 PM ESTSexual OrientationHeterosexual or Straight 05/19/2022 6:11 PM ESTdocumented as of this encounter Plan of Treatment DateTypeDepartmentCare Team (Latest Contact Info)Ysvkdfekzaf69/18/2025 10:00 AM ESTFollow-Up [facility] Heart at [facility] [address] [place] [address] Emilia To, MILIEU THERAPIST [address] [facility] [place] [address] documented as of this encounter Visit Diagnoses Diagnosis Essential (primary) hypertension Unspecified essential hypertension documented in this encounter Care Teams Team MemberRelationshipSpecialtyStart DateEnd Date John Perdomo DO [address] [place] [address] PCP - Iiyxnuf15/8/22documented as of this encounter
--- OUTSIDE RECORDS SUMMARY | 2025-05-07 10:06 | XMS_ITS | CCD ---
Author Organization [facility] Care Team Providers Care Early Intervention Specialist Name Role Phone JOHN PERDOMO Referring [...] MARY GRACE, GENEVA Attending Unavailable MARY GRACE, GNEEVA Consulting Unavailable PERDOMO, DR JOHN Mcdonough Primary [...] ZIEBER, DR RENETTA Abreu Consulting Unavailable MARY GRAEC, GENEVA Consulting Unavailable MARY GRACE, GENEVA Admitting [...] Care Provider Geneva Jenkins MD Attending Provider [phone] John Perdomo DO Primary Care Provider [phone] Geneva Jenkins MD Attending Provider [phone] KARTHIK FISH Referring Unavailable DOTTIEMIGNON DAWIT Admitting Unavailable EH HIGUERA Attending Unavailable DEACON TO Attending Unavailable KARTHIK FISH Attending Unavailable KARTHIK FISH Attending Unavailable EH HIGUERA Referring Unavailable EH HIGUERA Referring Unavailable EH HIGUERA Referring Unavailable DEACON TO Attending Unavailable Allergies Allergy ClassificationReported Allergen(s)Allergy TypeDate of OnsetReaction(s) FacilityOpioid Agonists (1 source)HYDROmorphoneDrug Dwtsdms87-71-9485NzulpmfThe Surgical Hospital at SouthwoodsPenicillins (antibiotic) (1 source)Penicillin G BenzathineDrug Kxbdume78-95-2430pmmocAkpnkyndsUK Healthcarepironolactone (1 source)SpironolactoneDrug Ehnntyv82-88-1498cobeJlofjqkbdGuernsey Memorial Hospital (2 sources)Erythromycin; Translations: [ERYTHROMYCIN]Drug Jufmenb71-37-6996Xlz [facility] (2 sources)HYDROmorphoneDrug Quwtmbz31-22-7346Umd [facility] Repository (2 sources)Penicillins; Translations: [PENICILLINS]Drug allergy (disorder) 99-03-8167Xke [facility] Rep[facility] (20 sources)ErythromycinDrug Lqmicsd41-45-4454xxbespcjphv, Other, UnknownNOMN Healthcare (20 sources)HYDROmorphone; Translations: [HYDROMORPHONE]Drug Jqytrte20-24-2027 [facility] (20 sources)PenicillinDrug AllergyUnknowLake Regional Health System Machinio Other (20 sources)Penicillin G BenzathineDrug ishdiyp89-20-6179xjiayYddivpdxqDiley Ridge Medical Center (14 sources)Erythromycin; Translations: [ERYTHROMYCIN BASE]Drug Allergy 61-70-8860HgbkqnzelabSav [facility] (1 source)PenicillinDrug AllergyBlanchard Valley [facility] (9 sources)Spironolactone; Translations: [SPIRONOLACTONE]Drug Edqegtc27-79-1623 [facility] (6 sources)Penicillin GDrug Htrnksd68-30-6829LqlsiOGGN Healthcare (5 sources)PenicillinsDrug Vuwjybw09-42-8237RaxkaGQHY Healthcare (5 sources)SpironolactoneDrug Gceylmg86-17-8507QedcMBUN Healthcare Medications Current Medications MedicationDrug Class(es)DatesSig (Normalized)Sig (Original)allopurinol 100 mg oral tablet (20 sources)Xanthine Oxidase InhibitorStart: 40-85-4355llah 1 tablet by mouth once dailyAllopurinol 100 mg tablet Active 100 MG PO Daily April 22, 2025 11:37am Hyperuricemia 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 inflammatory arthritis and tophaceous disease Complies with drug therapyStart: 03-24-2025 End: 49-60-3980stxm 1 tablet by mouth once dailyAllopurinol 100 mg tablet Discontinued 0 .ROUTE .COMPLEX 90 March 24, 2025 12:12pm April 22, 2025 11:40am Hyperuricemia 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 inflammatory arthritis and tophaceous disease TAKE 1 TABLET BY MOUTH EVERY DAYStart: 09-03-2024 End: 52-49-6364lsnk 1 tablet by mouth once dailyAllopurinol 100 mg tablet Discontinued 100 MG PO Daily September 03, 2024 4:38pm March 24, 2025 12:13pm Hyperuricemia 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 inflammatory arthritis and tophaceous diseaseStart: 09-06-2023 End: 30-61-2767niji 1 tablet by mouth once dailyAllopurinol 100 mg tablet Discontinued 0 .ROUTE .COMPLEX 90 July 29, 2024 7:27pm September 03, 2024 4:42pm Hyperuricemia 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 12/22/2022 ActiveBasaglar KwikPen 100 units/mL (20 sources)Basaglar KwikPen [...] oral tablet (20 sources)Loop DiureticStart: 04-22-2025 End: 12-96-9475nsxz 1 tablet by mouth once dailyBumetanide 2 mg tablet Active 2 MG PO Daily April 22, 2025 11:54am Complies with drug therapyStart: 09-25-2023 End: 52-79-3618vteu 1 tablet by mouth twice dailyBumetanide 2 mg tablet Discontinued 3 MG PO Twice daily January 08, 2024 1:04pm April 22, 2025 11: 40amStart: 09-25-2023 End: 91-10-2366pjgu 3 mg by mouth twice dailyBumetanide Active [...] sources)Carbonic Anhydrase Inhibitor, beta-Adrenergic BlockerStart: 05-15-2024 End: 46-17-1902gtrs 1 drop(s) into the eye(s) in the morningdorzolamide-timolol (Cosopt) 2-0.5 % ophthalmic solution Indications: Primary open angle glaucoma (P OAG) of both eyes, mild stage ADMINISTER 1 DROP INTO BOTH EYES IN THE MORNING AND 1 DROP BEFORE BEDTIME. 30 mL 1 03/24/2025 03/24/2026 ActiveStart: 09-25-2023 dorzolamide-timolol (Cosopt) 2-0.5 % ophthalmic solution Twice daily 09/25/2023 ActiveStart: 33-47-4826dzdt 1 drop(s) into the eye(s) twice dailyDorzolamide- [...] mg oral capsule (20 sources)Provitamin D2 CompoundStart: 37-02-7358Euxdtyggrlpdol (Vitamin D2) 1,250 mcg (50,000 unit) capsule Active 76967 UNIT PO .COMPLEX 7 1 July 29, 2024 7:32pm 50,000 units orally every other week; Complies with drug therapy Start: 09-25-2023 End: 47-84-8337yebu 1 capsule by mouth every weekErgocalciferol (Vitamin D2) 1,250 mcg (50,000 unit) capsule Discontinued 57212 UNIT PO EVERY 2 WEEKS September 25, 2023 12:00am July 29, 2024 7:33pm FreeTextSig: TAKE 1 CAPSULE BY MOUTH ONE TIME PER WEEK; Note: Source Status: Start; Refills: 2; Qty: 12 Capsule; Provider: Mary Grace Bean ( )take 1 capsule by mouth every weekVitamin D (Ergocalciferol) 1.25 MG (28102 UT) TAKE 1 CAPSULE BY MOUTH ONE TIME PER WEEK for 84 Activetake 1 capsule by mouth every other week Ergocalciferol 1.25 MG (25477 UT) 1 capsule Orally Q2 week for 90 days Active ferrous sulfate 325 mg oral tablet (20 sources)Start: 09-19-2024 End: 29-22-7476scom 1 tablet by mouth every other dayFerrous Sulfate 325 mg (65 mg iron) tablet Active 0 .ROUTE .COMPLEX 45 March 24, 2025 12:12pm Anemia of renal disease Chronic kidney disease, unspecified Anemia in chronic kidney disease TAKEONE TABLET BY MOUTH EVERY OTHER DAY FOR 90 DAYS Complies with drug therapyStart: 09-03-2024 End: 00-53-8060Ybpyqyy Sulfate 325 mg (65 mg iron) tablet Discontinued 325 MG PO Every 48 hours September 03, 2024 4:40pm September 19, 2024 1:26pm Anemia of renal disease Chronic kidney disease, unspecified Anemia in chronic kidney disease Start: 09-06-2023 End: 26-18-0194fovn 1 tablet by mouth every other dayFerrous Sulfate 325 mg (65 mg iron) tablet Discontinued 0 .ROUTE .COMPLEX 45 March 1249:48am September 03, 2024 4:42pm Anemia of renal disease Chronic kidney disease, unspecified Anemia inchronic kidney disease TAKE ONE TABLET BY MOUTH EVERY OTHER DAY FOR 90 DAYSStart: 37-05-1790wair 1 tablet by mouth every other dayFerrous Sulfate Active 0 .ROUTE .COMPLEX 45 September 06, 2023 4:49pm TAKE 1 TABLET BY MOUTH EVERY OTHER DAYStart: 09-05-2023 End: 94-96-0562ryke 1 tablet by mouth every other dayFerrous [...] acid 1 mg oral tablet (1 source)Start: 31-24-3520ecig 1 tablet by mouth once dailyFolic Acid 1 mg tablet Active 1 MG PO Daily April 22, 2025 12:00am Complies with drug therapyhydrALAZINE hydrochloride 25 mg oral tablet (20 sources)Arteriolar VasodilatorStart: 86-38-4577bhpb 2 tablets by mouth twice dailyHydralazine 25 mg tablet Active 50 MG PO Twice daily April 22, 2025 12:02pm Complies with drug therapyStart: 04-22-2025 End: 58-61-9786hzar 1 tablet by mouth twice dailyHydralazine 25 mg tablet Discontinued 25 MG PO Twice daily April 22, 2025 11:38am April 12:02pmStart: 09-25-2023 End: 85-48-6478bbek 1 tablet by mouth three times dailyHydralazine 25 mg tablet Discontinued 25 MG PO Three times daily January 08, 2024 1:09pm April 22, 2025 11:40amStart: 99-91-9047xubl 1 tablet by mouth three times dailyhydrALAZINE (Apresoline) 50 MG tablet TAKE 1 TABLET BY MOUTH THREE TIMES A DAY FOR 90 DAYS 08/11/2022 ActiveStart: 12-43-6914ufpv 1 tablet by mouth every twelve hours hydrALAZINE HCl 25 MG 1 tablet with food Orally bid for 90 day(s) Aug, Activetake 1 tablet by mouth every eight hourshydrALAZINE HCl 25 MG 1 tablet with food Orally Three times a day for 90 day(s) Active3 ml insulin glargine 100 unt/ml pen injector (12 sources)Insulin AnalogStart: 48-75-4943ziigor 10 [IU] by subcutaneous injection once as neededInsulin Glargine (Basaglar Kwikpen U-100 Insulin) 100 unit/mL (3 mL) insulin pen Active 10 UNIT SUBCUT Once as needed April 22, 2025 11:38am Complies with drug therapyStart: 09-25-2023 End: 22-66-6091Fbvzzmz Glargine (Basaglar Kwikpen U-100 Insulin) 100 unit/mL [...] BY MOUTH EVERY OTHER DAY for 90 Umwosj11 hr isosorbide mononitrate 30 mg extended release oral tablet (5 sources)Nitrate VasodilatorStart: 60-95-5777yalo 1 tablet by mouth once daily in the morningisosorbide mononitrate ER (Imdur) 30 MG 24 hr tablet TAKE 1 TABLET BY MOUTH EVERY MORNING *DO NOT CRUSH OR CHEW* 08/17/2023 Activeisosorbide dinitrate 30 mg oral tablet (16 sources)Nitrate VasodilatorStart: 36-68-4343hxtu 1 tablet by mouth once dailyIsosorbide Dinitrate [...] sodium 0.075 mg oral tablet (20 sources)l-ThyroxineStart: 77-59-5562srzj 1 tablet by mouth once daily Levothyroxine 75 mcg tablet Active 75 MCG PO Daily January 29, 2025 12:00am Complies with drug therapyStart: 09-25-2023 End: 84-07-8073gjwx 1 tablet by mouth once dailyLevothyroxine 50 [...] sodium 0.005 mg oral tablet (5 sources)l-TriiodothyronineStart: 70-04-6399jnhk 2 tablets by mouth once daily liothyronine (Cytomel) 5 MCG tablet TAKE 2 TABLETS BY MOUTH ONCE A DAY 08/11/2023 ActivemetOLazone 2.5 mg oral tablet (20 sources)Thiazide-like DiureticStart: 76-50-7142hbgr 1 tablet by mouth two times weekly as neededMetolazone 2.5 mg tablet Active 2.5 MG PO .COMPLEX as needed April 22, 2025 11:38am 2.5 mg orally twice a week PRN; Complies with drug therapyStart: 09-25-2023 End: 56-60-6608Zlgpvhlqfl 2.5 mg tablet Discontinued 2.5 MG PO Every 48 hours as needed September 25, 2023 12:00am April 22, 2025 11:40am FreeTextSi tablet Orally MONDAY, MONDAY, MONDAY NEEDED; Note: Source Status: Taking; Provider: Mary Grace Bean ( )metOLazone 2.5 MG 1 tablet Orally MONDAY, MONDAY, MONDAY NEEDED Activenitroglycerin 0.4 mg sublingual tablet (6 sources)Nitrate Vasodilatornitroglycerin (Nitrostat) 0.[address] 1 TABLET UNDER TONGUE EVERY 5 MINUTES IF NEEDED FOR CHEST PAIN Activepotassium chloride 20 meq extended release oral tablet (20 sources)Start: 36-16-0679jjnj 1 tablet by mouth oncePotassium Chloride 20 mEq tablet extended release Active 20 MEQ PO Once April 22, 2025 11:36am C omplies with drug therapyStart: 09-25-2023 End: 16-47-0210iicn 40 mEq by mouth three times dailyPotassium Chloride Active 40 MEQ PO Three times daily 540 90 November 16, 2023 1:50pmStart: 04-10-2023 End: 39-10-9183nbzu 2 tablets by mouth in the morning, then take 2 tablets by mouth in the evening, then take 2 tablets by mouth at bedtimepotassium chloride CR (K-Tab) 20 MEQ ER tablet Take 40 mEq by mouth in the morning and 40 mEq in the evening and 40 mEq before bedtime. 04/10/2023 ActiveKlor-Con M20 20 MEQ TAKE 2 TABLETS BY MOUTH IN THE MORNING, 2 TABLETS AT NOON, AND 1 TABLET IN THE E VENING for 90 Activetake 2 tablets by mouth every twelve hoursPotassium Chloride ER 20 MEQ 2 Tablet Orally bid for 90 days Active Completed/Discontinued Medications MedicationDrug Class(es)DatesSig (Normalized)Sig (Original)amLODIPine 10 mg oral tablet (20 sources)Dihydropyridine Calcium Channel BlockerStart: 10-28-2020 End: 20-27-2402iysc 1 tablet by mouth once dailyAmlodipine 10 mg tablet Discontinued 1 TAB PO Daily September 25, 2023 12:00am September 03, 2024 4:42pm FreeTextSi tablet Orally Once a day; Note: Source Status: Taking; Provider: Mary Grace Bean ( )doxazosin 4 mg oral tablet (20 sources)alpha-Adrenergic BlockerStart: 01-08-2024 End: 78-73-9824lfmx 6 mg by mouth twice dailyDoxazosin 4 mg tablet Discontinued 6 MG PO Twice daily January 08, 2024 1:05pm April 22, 2025 11:39amStart: 09-25-2023 End: 19-16-2913tkrp 6 mg by mouth twice dailyDoxazosin Active 6 MG PO Twice daily January 08, 2024 1:05pmStart: 10-24-2022 End: 30-72-5524vtiziplqy (Cardura) 4 MG tablet TAKE 1 AND 1/2 TABLETS BY MOUTH TWICE DAILY FOR 90 DAYS 10/24/2022 Activemetoprolol tartrate 50 mg oral tablet (20 sources)beta-Adrenergic BlockerStart: 01-08-2024 End: 35-41-4328Jlqsuobsig Tartrate 50 mg tablet Discontinued 75 MG PO Twice daily January 08, 2024 1:07pm April 22, 2025 11:40amStart: 09-25-2023 End: 39-53-4945Lkhivtgodn Tartrate 50 mg tablet Discontinued MG PO September 25, 2023 12:00am January 08, 2024 1:08pm FreeTextSi 1/2 tablet with food Orally Twice a day; Note: Source Status: Taking; Provider: Mary Grace Bean ( )Start: 09-25-2023 End: 08-26-4579kkss 75 mg by mouth twice dailyMetoprolol Tartrate Active 75 MG PO Twice daily January 08, 2024 1:07pmStart: 33-78-9298kyde 1.5 tablets by mouth in the morningmetoprolol tartrate (Lopressor) 50 MG tablet Take 1.5 tablets by mouth in the morning and 1.5 tablets before bedtime. 09/13/2022 ActiveMetoprolol Tartrate 50 MG 1 1/2 tablet with food Orally Twice a day Activemidodrine hydrochloride 5 mg oral tablet (10 sources)alpha-Adrenergic AgonistStart: 01-08-2024 End: 99-48-7953irnk 1 tablet by mouth three times daily as neededMidodrine 5 mg tablet Discontinued 5 MG PO Three times daily as needed January 08, 2024 12:00am April 22, 2025 11:39am Problems Active Problems Problem ClassificationProblemDateDocumented DateEpisodic/ChronicAcute and unspecified renal failure (2 sources)Acute renal failure syndrome; Translations: [Acute kidney failure, unspecified]18-78-8389OinfeibwHfohatx kidney disease (20 sources)Chronic kidney disease stage 4; Translations: [Chronic kidney disease, stage 4 (severe)]Onset: 05-18-2021 Resolved: 82-05-0848AewgfynRmrdrgamfh heart failure; nonhypertensive (15 sources)Chronic diastolic (congestive) heart failure; Translations: [Acute combined systolic (congestive) and diastolic (congestive) heart failure]Onset: 49-12-8902SseqdrgNtvxyqac atherosclerosis and other heart disease (5 sources)Atherosclerotic heart disease of [place] coronary artery without angina pectoris; Translations: [Coronary arteriosclerosis]Onset: 04-04-2022 ChronicCoronary atherosclerosis and other heart disease (2 sources)Presence of aortocoronary bypass graft; Translations: [Presence of aortocoronary bypass graft]Onset: 25-10-3269NmhebmmmMvtyrnjlvq and other anemia (20 sources)Anemia of renal disease; Translations: [Anemia in chronic kidney disease]46-86-4147RuqywqrSwznhciwuz and other anemia (2 sources)Anemia in chronic kidney diseaseChronicDiabetes mellitus with complications (20 sources)Disorder of kidney due to diabetes mellitus; Translations: [Type 2 diabetes mellitus with diabetic chronic kidney disease]Onset: 05-18-2021 Resolved: 88-30-9508MsugtelWpxfsoezf of lipid metabolism (14 sources)Hyperlipidemia; Translations: [Hyperlipidemia, unspecified]Onset: 327518-09-2630HhcdurjBqfrzrayx hypertension (9 sources)Essential (primary) hypertension; Translations: [Hypertensive disorder]Onset: 53-25-7507YinzbclTtuxl and electrolyte disorders (20 sources)Hypokalemia; Translations: [Hypokalemia]Onset: 05-18-2021 Resolved: 39-15-6400ZrymlsqiZsigemnfigbfs symptoms and ill-defined conditions (20 sources)Other microscopic hematuria; Translations: [Microscopic hematuria] Onset: 05-18-2021 Resolved: 56-32-7131CkgvwrcuCwpooocv (9 sources)Primary open angle glaucoma; Translations: [Primary open-angle glaucoma, bilateral, mild stage]Onset: 056441-31-6771TxjplfgLrtmt valve disorders (1 source)Rheumatic disorders of both mitral and tricuspid valves; Translations: [RHEUMATIC D/O MITRAL TRICUSPID VALV]Onset: 60-78-9024RjauihrDhqsm valve disorders (2 sources)Heart murmur; Translations: [Heart Murmur]Onset: 41-65-8487Vvuzsclb Hypertension with complications and secondary hypertension (20 sources)Chronic kidney disease due to hypertension; Translations: [Hypertensive chronic kidney disease withstage 1 through stage 4 chronic kidney disease, or unspecified chronic kidney disease]Onset: 05-18-2021 Resolved: 95-83-2831XmfljykIakehef and fatigue (2 sources)Fatigue; Translations: [Fatigue]Onset: 98-85-1483EtlpjjuoHpgneuvcjpq chest pain (2 sources)Chest pain; Translations: [Chest Pain]Onset: 42-38-1766Hgmlnidk Nutritional deficiencies (6 sources)Iron deficiency; Translations: [IRON DEFICIENCY]Onset: 05-18-2021 Resolved: 51-46-6345BcsdxmjsCqxww connective tissue disease (20 sources)Full thickness rotator cuff tear; Translations: [Complete rotator cuff tear or rupture of left shoulder, not specified as traumatic]EpisodicOther diseases of kidney and ureters (20 sources)Secondary hyperparathyroidism; Translations: [Secondary hyperparathyroidism of renal origin]16-17-9456OuanoupRwutk diseases of kidney and ureters (11 sources)Secondary hyperparathyroidism of renal origin; Translations: [Secondary hyperparathyroidism (of renal origin)]Onset: 05-18-2021 Resolved: 30-63-9006SxqddlzPivqp lower respiratory disease (2 sources)Shortness of breath; Translations: [Shortness of Breath]Onset: 80-87-6130XbdpwvkfZvjio lower respiratory disease (2 sources)Cough; Translations: [Cough]Onset: 09-28-0906DcywtoszWjsmr non- traumatic joint disorders (20 sources)Arthralgia of the lower leg; Translations: [Right knee pain]Episodic Other nutritional; endocrine; and metabolic disorders (12 sources)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 inflammatory arthritis and tophaceous disease; Translations: [Other abnormal blood chemistry]Onset: 05-18-2021 Resolved: 40-60-4993VvqoagspYpsxt nutritional; endocrine; and metabolic disorders (9 sources)Hyperuricemia; Translations: [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 inflammatory arthritis and tophaceous disease]70-62-3380IbhugsfxGotqnggy codes; unclassified (2 sources)Edema; Translations: [Edema]Onset: 33-61-9183PyovzgpfIfakqif disorders (20 sources)Non-toxic multinodular goiter; Translations: [Nontoxic multinodular goiter]Onset: 60-31-4594NhmxceaVelmdlrknpjp (3 sources)CONTACT W/AND (SUSP) EXPOS COVID-19; Translations: [CONTACT W/AND (SUSP) EXPOS COVID-19]Onset: 12-10-2021 Past or Other Problems Problem ClassificationProblemDateDocumented DateEpisodic/ChronicOther bone disease and musculoskeletal deformities (1 source)Other specified disorders of bone density and structure, right forearm; Translations: [OTH D/O BONEDEN STRUCT RT FORARM]Onset: 06-04-2022 EpisodicOther eye disorders (8 sources)Scar of cornea of right eye; Translations: [Unspecified corneal scar and opacity]Onset: 393107-18-8998DiwmgehnBfmap eye disorders (8 sources)Dry eyes; Translations: [Dry eye syndrome of bilateral lacrimal glands]Onset: 938026-68-5714KfqfeitbKxpgm lower respiratory disease (5 sources)Shortness of breath; Translations: [SHORTNESS OF BREATH]Onset: 06-20-2214FfosbwekLujfn lower respiratory disease (5 sources)Other forms of dyspnea; Translations: [OTHER FORMS OF DYSPNEA]Onset: 28-50-3633WxuvxcjlJbrvf non-traumatic joint disorders (4 sources)Pain in right elbow; Translations: [PAIN IN RIGHT ELBOW]Onset: 78-66-3346MfkepmlrYxnidhtr codes; unclassified (1 source)Localized edema; Translations: [LOCALIZED EDEMA]Onset: 06-18-2022 EpisodicUnclassified (20 sources)Sprain of right knee; Translations: [Right knee sprain]Unclassified (1 source)CONTACT W/AND (SUSP) EXPOS COVID-19; Translations: [CONTACT W/AND (SUSP) EXPOS COVID-19]Onset: 12-07-2021 Results Test NameValueInterpretationReference DzxaeMetifgho65yz 41-31-172376Rrisxzzed date: 05/04/25 Call date: 05/05/25 Spoke with: patient HF Follow-up date: 05/20/25 Med reconciliation completed: pt declined Questions/Concerns: Patient stated she has been a little tired since discharge, but she denied any CP and stated her SOB is back to baseline. 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 Follow up appts reviewed with pt. Pt asked about cardiac rehab and mentioned she lives in [place]. House Officer informed pt she can have the referral faxed to the cardiac rehab closer to her home. Patient is aware of her follow up appt with cardiology. House Officer offered to move her follow-up to a sooner date but pt declined. Pt agreed to call anything changes and she would like to be seen sooner.NormalUnRiverview Health InstituteTelephoneon [phone] [phone] SameerClaudia mast Katerin 1950 F Date Provider Department Center 05/05/2025 [id number] ABISAI [facility] HeartVAS Family History Problem Relation Age of Onset Heart attack Mother Heart failure Mother Heart attack Father Family Status - Relation Status Age at Mother Father Reason for Visit and Comments: HF post discharge call and inpatient survey sent. [Other]NormalUnRiverview Health InstituteBASIC METABOLIC PANELon 44-42-9432Otedg gap [Moles/Vol]14 mmol/LNormal7-20UnRiverview Health InstituteComment on above:Performed By: #### [id number] ####[facility] (BEAKER)[address] [place] [address] Calcium [Mass/Vol]8.6 mg/dLNormal8.6-10.3UnRiverview Health Institute Comment on above:Performed By: #### [id number] ####[facility] (BEAKER)[address], [place] [address]Yqusvnps [Moles/Vol]107 mmol/DWvjtjg87-987 [facility] CenterComment on above:Performed By: #### LAB15 ####[facility] (BEAKER)[address], [place] [address]SL5 [Moles/Vol] 21 mmol/IAnxplh01-01OaaccfvabyRiverview Health InstituteComment on above: Performed By: #### LAB15 ####[facility] (BEAKER)[address] [place], [place] [address]Ouinbktidn [Mass/Vol]2.55 mg/dLHigh0.60-1.20UnRiverview Health InstituteComment on above:Performed By: #### LAB15 ####[facility] (BEAKER)[address], [place] [address]AISWOIXZWS FILTRATION RATE ML/MIN/1.73 SQ M.YVFZOBWGD92.2 mL/min/1.73m*2Low>60.0UnRiverview Health Institute Comment on above:Result Comment: [facility]???s estimated glomerular filtration rate (eGFR) will no longer include consideration of race in its calculation. The National Kidney Foundation???s eGFR Task Force developed new recommendations for the estimation of the glomerular filtration ra te in the [place] They recommend immediate implementation of the new equation refit without the race variable in all laboratories because the calculation does not include race. In addition to not including race in the calculation and reporting, it included diversity in its development, and has acceptable performance characteristics and potential consequences that do not disproportionately affect anyone group of individuals.Performed By: #### [id number] ####[facility] ([facility])[address] [place], [place] [address]Hlcaovt [Mass/Vol]122 mg/kAAlsh80-541EcovtocllnRiverview Health InstituteComment on above:Performed By: #### LAB15 ####[facility] ([facility])[address] [place] [address]Cebbxetcc [Moles/Vol]4.0 mmol/LNormal3.5-5.1UnRiverview Health InstituteComment on above:Performed By: #### LAB15 ####[facility] ([facility])[address] [place], [place] [address]Iuaumd [Moles/Vol]138 mmol/L Elmqjr330-704RiyrhiepdbRiverview Health InstituteComment on above:Performed By: #### LAB15 ####[facility] ([facility])[address] [place], [place] [address]Mwom nitrogen [Mass/Vol]64 mg/dLHigh7-25UnRiverview Health InstituteComment on above:Performed By: #### LAB15 ####[facility] [facility] ([facility])[address] [place], [place] [address]IJOP NITROGEN/CREATININE (MASS RATIO) IN SER/PLAS25.1Normal [facility] CenterComment on above:Performed By: #### [id number] ####[facility] ([facility])[address] [place], [place] [address]SRUry 05-04-2025 Erythrocyte distribution width (RBC) [Ratio]15.6 %High11.5-15.0UnRiverview Health InstituteComment on above:Performed By: #### [id number] ####[facility] ([facility])[address] [address]CURAZDYHNGU MEAN CORPUSCULAR HEMOGLOBIN CONCENTRATION (G/DL) BY GYFCXXVYK82.1 g/bFCwxihd12.0-35.0 [facility] CenterComment on above:Performed By: #### [id number] ####[facility] ([facility])[address] [place], [place] [address]Ardupnlqxl (Bld) [Volume fraction]26.0 %Low36.0-45.0UnRiverview Health InstituteComment on above:Performed By: #### [id number] ####[facility] ([facility])[address] [place], [place] [address]Gdqljsitgy (Bld) [Mass/Vol]8.6 g/dLLow12.0-15.0UnRiverview Health InstituteComment on above:Performed By: #### [id number] ####[facility] ([facility])[address] [place] [address]QUX (RBC) [Entitic mass] 29.8 ncDmwdpb12.0-33.0UnRiverview Health InstituteComment on above: Performed By: #### [id number] ####[facility] ([facility])[address] [place], [place] [address]DKZ (RBC) [Entitic vol]90.0 wCQavxvx33.0-98.0UnRiverview Health InstituteComment on above:Performed By: #### [id number] ####[facility] ([facility])[address] [place], [place] [address]VEOYLZVTU (10*3/UL) IN BLOOD AUTOMATED PGRXN750 10*3/qWCbbdql952-625DglbhjzzhnRiverview Health Institute Comment on above:Performed By: #### [id number] ####[facility] ([facility])[address] [place], [place] [address]CJD (Bld) [#/Vol]2.89 10*6/uLLow3.80-5.00[facility] CenterComment on above:Performed By: #### [id number] ####[facility] ([facility])[address] [place] [address]UHJ (Bld) [#/Vol]8.26 10*3/uLNormal4.00-10.60UnRiverview Health InstituteComment on above: Performed By: #### [id number] ####[facility] ([facility])[address] [place] [address]YCon [id number] Attestation signed by Eh Higuera MD at 05/06/2025 8:06 AM By using the attestations below, the signing [...] up with Cardiology (already scheduled) and Nephrology ([facility]). Internal Medicine Discharge Summary Final Discharge Diagnosis: Acute on chronic HFrEF Admission Diagnosis: Acute on chronic heart failure with preserved ejection fraction (HFpEF) ([facility]) [I50.33] Hospital course: 75-year-old female with history [...] Time Provider Department Center 05/20/2025 10:00 AM Deacon To CNP [facility] Your medication [...] MOUTH EVERYDAY AT BEDTIME ergocalciferol 1.25 MG (81577 Units) capsule Commonly known as: Vitamin D-2 [...] in the morning. midodrine 5 mg tablet (more content not included)...NormalUnRiverview Health InstituteNURSNOTE on 13-18-5642UPOMSBDBOy discharged with all belongings, discharge paperwork, and all questions answered to pt's satisfaction.NormalUnRiverview Health InstitutePOCT GLUCOSE METER UNSOLICITED RESULTSon 87-15-6358Nwiehro [Mass/Vol]184 mg/dLHigh 70-105UnRiverview Health InstituteComment on above:Order Comment: Waived Testing in the ED is performed under the ED CLIA certificate #[id number].Result Comment: jarizmePerformed By: #### [id number] ####[facility] ([facility])[address] [place], [place] [address]ih 16-22-007307Eqz patient is Moderately Stable - Low risk of patient condition declining or worsening The patient's goals for the shift include comfort, rest The clinical goals for the shift include VSS, safetyNormalUniversity [facility] South CampusBASIC METABOLIC PANELon 72-56-0355Auryz gap [Moles/Vol]14 mmol/L Normal7-20UnRiverview Health InstituteComment on above:Performed By: #### [id number] ####[facility] ([facility])[address] [place], [place] [address]Zhfzdki [Mass/Vol]8.6 mg/dLNormal8.6-10.3UnRiverview Health InstituteComment on above:Performed By: #### [id number] ####[facility] ([facility])[address] [place], [place] [address]Jnmtzrwb [Moles/Vol]108 mmol/MIibt26-119XvzeettfbzRiverview Health InstituteComment on above:Performed By: #### [id number] ####[facility] ([facility])[address] [place], [place] [address]OR2 [Moles/Vol]20 mmol/QOat66-47 [facility] CenterComment on above:Performed By: #### [id number] ####[facility] ([facility])[address] [place], [place] [address]Ajjcjqxnxj [Mass/Vol]2.76 mg/dLHigh0.60-1.20UnRiverview Health InstituteComment on above:Performed By: #### [id number] ####[facility] ([facility])[address] [place], [place] [address]BURTYBGUEJ FILTRATION RATE ML/MIN/1.73 SQ M.HMLQQOBGF54.5 mL/min/1.73m*2Low>60.0UnRiverview Health InstituteComment on above:Result Comment: [facility]???s estimated glomerular filtration rate (eGFR) [...] potential consequences that do not disproportionately affect anyone group of individuals.Performed By: #### [id number] ####[facility] ([facility])[address] [place], [place] [address]Okwrdsj [Mass/Vol]113 mg/rWArmk72-856KgrmjgiydxRiverview Health InstituteComment on above:Performed By: #### [id number] ####[facility] ([facility])[address] [place], [place] [address]Hxvovmjkb [Moles/Vol]4.0 mmol/L Normal3.5-5.1UnRiverview Health InstituteComment on above:Performed By: #### [id number] ####[facility] ([facility])[address] [place] [address] Sodium [Moles/Vol]138 mmol/THjfizy355-525WunsvabuxqRiverview Health Institute Comment on above:Performed By: #### [id number] ####[facility] ([facility])[address] [place], [place] [address]Vetj nitrogen [Mass/Vol]61 mg/dLHigh7-25UnRiverview Health InstituteComment on above:Performed By: #### [id number] ####[facility] ([facility])[address] [place], [place] [address]JHLW NITROGEN/CREATININE (MASS RATIO) IN SER/PLAS22.1NormalUnRiverview Health InstituteComment on above:Performed By: #### [id number] ####[facility] ([facility])[address] [place], [place] [address]ZQNos 01-81-9701Nqlcppqkziq distribution width (RBC) [Ratio] 15.5 %High11.5-15.0UnRiverview Health InstituteComment on above:Performed By: #### [id number] #### [facility] ([facility]) [address] [place], [place] [address]TFBKBDEPRII MEAN CORPUSCULAR HEMOGLOBIN CONCENTRATION (G/DL) BY AYOMORCJV09.2 g/aKBxaymf07.0-35.0UnRiverview Health InstituteComment on above:Performed By: #### [id number] #### [facility] ([facility]) [address] [place] [address]Fqjhxnuyly (Bld) [Volume fraction]26.5 %Low36.0-45.0UnRiverview Health InstituteComment on above:Performed By: #### [id number] #### [facility] ([facility]) [address] [place] [address]Xdkacuxyjd (Bld) [Mass/Vol]8.8 g/dLLow12.0-15.0UnRiverview Health InstituteComment on above:Performed By: #### [id number] #### [facility] ([facility]) [address] [place] [address]RUH (RBC) [Entitic mass]29.7 dfXpehzk45.0-33.0UnRiverview Health InstituteComment on above:Performed By: #### [id number] #### [facility] ([facility]) [address] [place] [address]VIU (RBC) [Entitic vol]89.5 nEWfbgxq23.0-98.0UnRiverview Health InstituteComment on above:Performed By: #### [id number] #### [facility] ([facility]) [address] [place] [address]GJXXCWLGN (10*3/UL) IN BLOOD AUTOMATED IHIVR803 10*3/uLNormal 150-400UnRiverview Health InstituteComment on above:Performed By: #### [id number] #### [facility] ([facility]) [address] [place] [address]JNE (Bld) [#/Vol]2.96 10*6/uLLow3.80-5.00UnRiverview Health InstituteComment on above:Performed By: #### [id number] #### [facility] ([facility]) [address] [place] [address]ESV (Bld) [#/Vol]9.33 10*3/uLNormal4.00-10.60UnRiverview Health InstituteComment on above:Performed By: #### [id number] #### [facility] AMANDA) [address] [address]UNSHJNYoa [id number] Attestation signed by Jazzmine Kelsey MD at 05/03/2025 2:35 PM I personally saw and examined the patient [...] Faculty, Division of Nephrology, Department of Medicine, [facility]. Nephrology Consult Note Patient : Claudia Estrella; 75 y.o. Location: [facility]6/3186-01 Attending: Eh Higuera MD Admit Date: 05/01/2025 Hospital Day: 2 Reason for Consult: ORI on CKD stage 4, diuretic management. History of Present Illness: Claudia Estrella is a 75 y.o. female with PMH significant for CKD stage IV (baseline creatinine appears to be around 2-2.4), type 2 diabetes mellitus, and essential hypertension who was admitted to [facility] as a transfer from [facility] on 05/01/2025 after she initially presented with increased shortness of breath and swelling in the abdomen/lower extremities concerning for CHF exacerbation. Of note, patient had a cardiac catheterization back in 2020 which demonstrated severe three-vessel disease. Following admission, cardiology was consulted and patient underwent right heart catheterization demonstrating mean pulmonary arterial pressure of 42, and a wedge pressure of 31. Patient also had echocardiogram which demonstrated EF of 63%. Labs on admission demonstrated creatinine 2.85/BUN 58. Nephrology service was consulted for management of ORI [...] 57.5 kg Vital Signs: Temperature: Temp: 36.4 ???C (97.5 ???F) TMax: Temp (24hrs), Av.2 ???C (97.2 ???F), Min:36.1 ???C (97 ???F), Max:36.4 ???C (97.5 ???F) Respirations: Resp: 16 Pulse: Heart Rate: 72 [...] Date WBC 9.33 05/03/2025 HGB 8.8 (L) 05/03/20 (more content not included)...NormalCincinnati VA Medical CenterCREATININE, URINE, RANDOMon 25-94-6499Wphmqpmbsl (U) [Mass/Vol] 40.0 mg/qBCwdbom38-314ErhfmvuyfpRiverview Health InstituteComment on above: Performed By: #### [id number] ####[facility] ([facility])[address] [place], [place] [address]BJBKLYWWWPna 10-05-0845Zlbvxnnhb [Mass/Vol]4.2 mg/dLNormal 2.5-5.0UnRiverview Health InstituteComment on above:Performed By: #### [id number] #### [facility] ([facility] [address] [place], [place] [address]DKXU GLUCOSE METER UNSOLICITED RESULTSon 34-95-7438Wjhacka [Mass/Vol]168 mg/wDHoyn52-118CzouvftxstRiverview Health InstituteComment on above:Order Comment: Waived Testing in the ED is performed under the ED CLIA certificate #[id number].Result Comment: zxjbefp19Qyzrhbsfr By: #### [id number] ####[facility] ([facility])[address] [place], [place] [address]Pijwzhy [Mass/Vol]187 mg/tDRxwl18-721KrsbrdhyadRiverview Health InstituteComment on above:Order Comment: Waived Testing in the ED is performed under the ED CLIA certificate #[id number].Result Comment: vipclit8Wjkqbdlkk By: #### [id number] ####[facility] ([facility])[address] [place], [place] [address]Vjlcgbt [Mass/Vol]154 mg/mPBiho28-931SnorphdivdRiverview Health InstituteComment on above:Order Comment: Waived Testing in the ED is performed under the ED CLIA certificate #[id number].Result Comment: zstyahe5Lvxodfbet By: #### [id number] ####[facility] ([facility])[address] [place], [place] [address]Rdcjywk [Mass/Vol]126 mg/cGYevt14-976LcpyshixduRiverview Health InstituteComment on above:Order Comment: Waived Testing in the ED is performed under the ED CLIA certificate #[id number].Result Comment: exekyyl5Slcyfgukd By: #### [id number] #### [facility] ([facility]) [address] [place], [place] [address]UOIABWU, URINE, RANDOMon 35-91-2927Oslswel (U) [Mass/Vol]105.9 mg/dLNormalUniKettering Health SpringfieldComment on above:Result Comment: There are no established reference values for random urine specimens.Performed By: #### [id number] #### [facility] ([facility]) [address] [place], [place] [address]KXF, INTACTon 45-46-4889VPZLSYEJWD INTACT (PG/ML) IN SER/VLRP166 pg/cKGvxx72-62YqqmnvzddlRiverview Health InstituteComment on above:Performed By: #### [id number] ####[facility] ([facility])[address] [place] [address] URINALYSISon 75-98-8951GAEVIUHHG, TOTAL PRESENCE IN URINENegativeNormalNegative [facility] CenterComment on above:Performed By: #### [id number] ####[facility] ([facility])[address] [place], [place] [address]Sztlzng (U)Clear NormalClearUnRiverview Health InstituteComment on above:Performed By: #### [id number] ####[facility] ([facility])[address] [place] [address] Color (U)Light-YellowNormalColorless, Yellow, Light-YellowUnRiverview Health InstituteComment on above:Performed By: #### [id number] ####[facility] ([facility])[address] [place], [place] [address]TPEKCMI (MG/DL) IN URINENormalNormal NormalUnRiverview Health InstituteComment on above:Performed By: #### [id number] ####[facility] ([facility])[address] [place] [address] HEMOGLOBIN PRESENCE IN URINENegativeNormalNegativeUnRiverview Health InstituteComment on above:Performed By: #### [id number] ####[facility] ([facility])[address] [facility] [place] [address]Rdsmjki Ql (U)NegativeNormalNegative [facility] CenterComment on above:Performed By: #### [id number] ####[facility] ([facility])[address] [place], [place] [address]EFTLXIKVJ ESTERASE PRESENCE IN URINE BY TEST STRIPNegativeNormalNegativeUnRiverview Health InstituteComment on above:Performed By: #### [id number] ####[facility] ([facility])[address] [facility] [place] [address]EFWEPLK PRESENCE IN URINE NegativeNormalNegativeUnRiverview Health InstituteComment on above: Performed By: #### [id number] ####[facility] ([facility])[address] [place], [place] [address]tN (U)5.0 [pH]Normal5.0-8.0UnRiverview Health InstituteComment on above:Performed By: #### [id number] ####[facility] ([facility])[address] [facility] [place], [place] [address]Bhumwea (U) [Mass/Vol]30 mg/dLAbnormal NegativeUnRiverview Health InstituteComment on above:Performed By: #### [id number] ####[facility] ([facility])[address] [place], [place] [address]Noqqfvbk gravity (U) [Rel density]1.145Tgk3.010-1.030UnRiverview Health Institute Comment on above:Performed By: #### [id number] ####[facility] ([facility])[address] [place], [place] [address]TSGLFTNEIPHX (MG/DL) IN URINENormalNormalNormal [facility] CenterComment on above:Performed By: #### [id number] ####[facility] ([facility])[address] [place], [place] [address]NBAZGMBVMV MICROSCOPICon 42-32-1884VWPLG (#/LPF) IN URINE SEDIMENTOccasionalNormalNone Seen, Occasional, FewUnRiverview Health InstituteComment on above: Performed By: #### [id number] ####[facility] ([facility])[address] [facility] [address]JBB (#/HPF) IN URINE SEDIMENT3-5AbnormalNone Seen, 0-2 [facility] CenterComment on above:Performed By: #### [id number] ####[facility] ([facility])[address] [facility], [place] [address]RBZBGIOE EPITHELIAL CELLS (#/LPF) IN URINE SEDIMENTFewNormalNone Seen, Occasional, Few [facility] CenterComment on above:Performed By: #### [id number] ####[facility] ([facility])[address] [facility], [place] [address]LZH (LEUKOCYTE) (#/HPF) IN URINE SEDIMENT0-2NormalNone Seen, 0-2UnRiverview Health InstituteComment on above:Performed By: #### [id number] ####[facility] ([facility])[address] [place], [place] [address]tn 79-30-029211Vop patient is Moderately Stable - Low risk of patient condition declining or worsening The patient's goals for the shift include comfort, rest The clinical goals for the shift include VSSNormalUniversity of St[facility]30The patient is Moderately Stable - Low risk [...] and behaviors that affect risk of falls [place] fall precautions as indicated by assessment Educate [...] chronic conditions and comorbid symptoms for stability, deterioration, or improvement Collaborate with multidisciplinary team to address [...] any respiratory difficulty Respiratory therapy support as indicatedNoOhioHealth Berger [facility]30The patient is Moderately Stable - Low risk of patient condition declining or worsening The patient's goals for the shift include comfort and rest The clinical goals for the shift include stable VSNoMar[facility] 59-81-9966USEM Attestation signed by Rickey Jackson MD at 05/02/2025 11:12 AM Rickey Jackson MD, MPH, [facility], [facility] Interventional Cardiology Pager Email: [email or web address] Patient: Claudia Estrella Procedure Information Date/Time: 05/02/25 5225 Procedure: Right heart cath Location: [facility] MEDICAL OFFICE REP 2 BIPLANE / [facility] (Cath) Providers: Rickey Jackson [...] products. Plan discussed with attending. Additional Equipment RequestsNormalUniversSamaritan North Health CenterB-TYPE NATRIURETIC PEPTIDEon 23-02-3465Upmjkyeywgy peptide B (Bld) [Mass/Vol]1236 pg/mL High0-100UnRiverview Health InstituteComment on above:Performed By: #### [id number] ####[facility] ([facility])[address] [place], [place] [address]NJPNE METABOLIC PANELon 42-55-9774Nfwco gap [Moles/Vol]13 mmol/LNormal7-20UnRiverview Health InstituteComment on above:Performed By: #### [id number] #### [facility] ([facility]) [address] [place], [place] [address]Tylcsuk [Mass/Vol]8.6 mg/dLNormal8.6-10.3UnRiverview Health InstituteComment on above:Performed By: #### [id number] #### [facility] ([facility]) [address] [place], [place] [address]Auivxcxs [Moles/Vol]108 mmol/REfuk33-198NcanjornxbRiverview Health InstituteComment on above:Performed By: #### [id number] #### [facility] ([facility]) [address] [place], [place] [address]BJ9 [Moles/Vol]21 mmol/GRxtdhw21-03EqpswidpgkRiverview Health InstituteComment on above:Performed By: #### [id number] #### [facility] ([facility]) [address] [place], [place] [address]Lweojvrpcj [Mass/Vol]2.77 mg/dLHigh0.60-1.20UnRiverview Health InstituteComment on above:Performed By: #### [id number] #### [facility] ([facility]) [address] [place], [place] [address]OTAQARMIKR FILTRATION RATE ML/MIN/1.73 SQ M.PNLFNCWTL97.4 mL/min/1.73m*2Low>60.0UnRiverview Health InstituteComment on above:Result Comment: [facility]???s estimated glomerular filtration rate (eGFR) [...] potential consequences that do not disproportionately affect anyone group of individuals.Performed By: #### [id number] #### [facility] ([facility]) [address] [place], [place] [address]Wllcpqo [Mass/Vol]147 mg/xGSdai59-533QfytozrqhhRiverview Health InstituteComment on above:Performed By: #### [id number] #### [facility] ([facility]) [address] [place], [place] [address]Mygchdpsu [Moles/Vol]3.9 mmol/LNormal3.5-5.1[facility] CenterComment on above:Performed By: #### [id number] #### [facility] ([facility]) [address] [place], [place] [address]Lhapqs [Moles/Vol]138 mmol/ZXjqpyc027-648TupjztwfxqRiverview Health InstituteComment on above:Performed By: #### [id number] #### [facility] ([facility]) [address] [place], [place] [address]Rhkb nitrogen [Mass/Vol]60 mg/dLHigh7-25UnRiverview Health InstituteComment on above:Performed By: #### [id number] #### [facility] ([facility]) [address] [place], [place] [address]PVEX NITROGEN/CREATININE (MASS RATIO) IN SER/PLAS21.7Normal [facility] CenterComment on above:Performed By: #### [id number] #### [facility] ([facility]) [address] [place], [place] [address]Xespo gap [Moles/Vol]14 mmol/LNormal7-20UnRiverview Health InstituteComment on above:Performed By: #### [id number] #### [facility] ([facility]) [address] [place] [address]Vomoykb [Mass/Vol]8.5 mg/dLLow8.6-10.3UnRiverview Health InstituteComment on above:Performed By: #### [id number] #### [facility] ([facility]) [address] [place], [place] [address]Iwwdpdpc [Moles/Vol]106 mmol/SVtyjsw03-018LxnazuadtiRiverview Health InstituteComment on above:Performed By: #### [id number] #### [facility] ([facility]) [address] [place], [place] [address]FV7 [Moles/Vol]21 mmol/WZoknbp59-22FumkrwbginRiverview Health InstituteComment on above:Performed By: #### [id number] #### [facility] ([facility]) [address] [place], [place] [address]Sdsfdalmun [Mass/Vol]2.85 mg/dLHigh0.60-1.20UnRiverview Health InstituteComment on above:Performed By: #### [id number] #### [facility] ([facility]) [address] [place], [place] [address]BHTNWWZPGU FILTRATION RATE ML/MIN/1.73 SQ M.DPTGCKFHE99.8 mL/min/1.73m*2Low>60.0UnRiverview Health InstituteComment on above:Result Comment: [facility]???s estimated glomerular filtration rate (eGFR) [...] potential consequences that do not disproportionately affect anyone group of individuals.Performed By: #### [id number] #### [facility] ([facility]) [address] [place], [place] [address]Waelqxh [Mass/Vol]146 mg/jUFcgn85-212MihtgqtihrRiverview Health InstituteComment on above:Performed By: #### [id number] #### [facility] ([facility]) [address] [place] [place], [place] [address]Xtjfnwytz [Moles/Vol]3.9 mmol/LNormal3.5-5.1UnRiverview Health InstituteComment on above:Performed By: #### [id number] #### [facility] ([facility]) [address] [place] [place], [place] [address]Fvgdof [Moles/Vol]137 mmol/DPrfczg324-223IngunfwflsRiverview Health InstituteComment on above:Performed By: #### [id number] #### [facility] ([facility]) [address] [place] [place], [place] [address]Odyn nitrogen [Mass/Vol]58 mg/dLHigh7-25UnRiverview Health InstituteComment on above:Performed By: #### [id number] #### [facility] ([facility]) [address] [place] [place], [place] [address]EPKK NITROGEN/CREATININE (MASS RATIO) IN SER/PLAS20.4Normal [facility] CenterComment on above:Performed By: #### [id number] #### [facility] ([facility]) [address] [place] [place], [place] [address]TKWhy 09-70-4941Srdrtjmlltk distribution width (RBC) [Ratio]15.3 %High11.5-15.0UnRiverview Health InstituteComment on above:Performed By: #### [id number] #### [facility] ([facility]) [address] [place], [place] [address]MOSTRBLLDNT MEAN CORPUSCULAR HEMOGLOBIN CONCENTRATION (G/DL) BY WFSBUBFYV74.5 g/kXEsvihd24.0-35.0UnRiverview Health InstituteComment on above:Performed By: #### [id number] #### [facility] ([facility]) [address] [facility] EMERGENCY DEPARTMENTKaterin [place], [place] [address]Ohspishovc (Bld) [Volume fraction]26.9 %Low36.0-45.0UnRiverview Health InstituteComment on above:Performed By: #### [id number] #### [facility] ([facility]) [address] [place] [address]Djucxmmbay (Bld) [Mass/Vol]9.0 g/dLLow12.0-15.0UnRiverview Health InstituteComment on above:Performed By: #### [id number] #### [facility] ([facility]) [address] [place] [address]VYM (RBC) [Entitic mass]29.6 boUdkmag99.0-33.0UnRiverview Health InstituteComment on above:Performed By: #### [id number] #### [facility] ([facility]) [address] [place] [address]ZTK (RBC) [Entitic vol]88.5 wTMbijqs83.0-98.0UnRiverview Health InstituteComment on above:Performed By: #### [id number] #### [facility] ([facility]) [address] [place] [address]DDNJWURSW (10*3/UL) IN BLOOD AUTOMATED [id number] 10*3/uLNormal 150-400UnRiverview Health InstituteComment on above:Performed By: #### [id number] #### [facility] ([facility]) [address] [place] [address]RHO (Bld) [#/Vol]3.04 10*6/uLLow3.80-5.00UnRiverview Health InstituteComment on above:Performed By: #### [id number] #### [facility] ([facility]) [address] [place] [address]UVG (Bld) [#/Vol]10.61 10*3/uLHigh4.00-10.60UnRiverview Health InstituteComment on above:Performed By: #### [id number] #### [facility] ([facility]) [address] [place] [address]Rkykyeqvukk distribution width (RBC) [Ratio]15.3 %High11.5-15.0 [facility] CenterComment on above:Performed By: #### [id number] #### [facility] ([facility]) [address] [place] [address]XFRTTJPIUDW MEAN CORPUSCULAR HEMOGLOBIN CONCENTRATION (G/DL) BY JVJUYSABJ13.6 g/qBKzyudw89.0-35.0UnRiverview Health InstituteComment on above:Performed By: #### [id number] #### [facility] ([facility]) [address] [place] [address]Clrnjoydjf (Bld) [Volume fraction]26.1 %Low36.0-45.0UnRiverview Health InstituteComment on above:Performed By: #### [id number] #### [facility] ([facility]) [address] [place] [address]Mlqknqxrzt (Bld) [Mass/Vol]8.5 g/dLLow12.0-15.0UnRiverview Health InstituteComment on above:Performed By: #### [id number] #### [facility] ([facility]) [address] [place] [address]ICZ (RBC) [Entitic mass]29.0 yqSopbkh66.0-33.0UnRiverview Health InstituteComment on above:Performed By: #### [id number] #### [facility] ([facility]) [address] [place] [address]OZZ (RBC) [Entitic vol]89.1 aTEjvlnu12.0-98.0UnRiverview Health InstituteComment on above:Performed By: #### [id number] #### [facility] ([facility]) [address] [place] [address]RFOYEMGVV (10*3/UL) IN BLOOD AUTOMATED [id number] 10*3/uLNormal 150-400UnRiverview Health InstituteComment on above:Performed By: #### [id number] #### [facility] ([facility]) [address] [place] [address]KDC (Bld) [#/Vol]2.93 10*6/uLLow3.80-5.00UnRiverview Health InstituteComment on above:Performed By: #### [id number] #### [facility] (BEAKER) [address] [facility] CENTERKater[facility] [place], [place] [address]KBD (Bld) [#/Vol]05.02 10*3/uLNormal4.00-10.60UnRiverview Health InstituteComment on above:Performed By: #### [id number] #### [facility] (BE[facility]ER) [address] [place], [place] [address]DWADUNDrj 32-12-5319PZZWXKHJbeof Nutrition Assessment: Name: Claudia Estrella Date: 1950 Date of Visit: 05/02/25 Admission Dx: Acute on chronic heart failure with preserved ejection fraction (HFpEF) ([facility]) [I50.33] Reason for assessment: high risk (po [...] BUN 60 (H) 05/02/2025545 CREATININE 2.77 (H) 05/02/202546 NA 138 05/02/2025545 K 3.9 05/02/2025545 PHOS 4.4 07/18/2020 0404 [...] Independently feeds self Good access to food [employer] Skin Integrity: Intact Edema: BLE +1 Other [...] 05/02/25 1218 Special Kitchen Request Once Comments: Brazilian toast, chocolate milk and grapes 05/02/25 1237 [...] ideal body weight (40.9 kg) Calorie needs: 2081-8229 kcals/day based on 25-30 kcal/kg Protein needs: [...] of Nutrition and Dietetics (AND) and the [place] Society of Enteral and Parenteral Nutrition (ASPEN). [...] of nutrition education/adherence to diet recommendations No (more content not included)...[facility] CONSULT Attestation with edits by Karthik Fish MD at 05/02/2025 6:48 PM By using the attestations below, I agree [...] be an additional personal documentation from me. Karthik Fish MD Cardiology Consult Note Reason for Consult: CHF Exacerbation HPI: Claudia Estrella is a 75 y.o. female with a past medical history notable for hypertension, HFpEF, CAD s/p CABG 2020, hyperlipidemia, CKD 4, and diabetes who presents from [facility] cardiology clinic due to worsening dyspnea on [...] size and function. Mild biatrial dilation. Grade 2 diastolic dysfunction with elevated filling pressures. Mild TR. [...] medical history of CHF (congestive heart failure) ([facility]), Chronic kidney disease, Coronary artery disease, Diabetes mellitus ([facility]), and Hypertension. Surgical History She has a [...] times daily ergocalciferol (Vitamin D-2) 1.25 MG (05378 UT) capsule 1 capsule, Weekly ferrous sulfate [...] 40 mEq, Daily Prescriptions Prior to Admission[1] (more content not included)...NormalUnRiverview Health InstituteFERRITIN on 33-10-5860HRLYLYIC (NG/ML) IN SER/GZLY115.0 ng/mPIssopk66.0-307.0UnRiverview Health InstituteComment on above:Performed By: #### [id number] ####[facility] (BEAKER)[address] [place], [place] [address]DBIJLTnw 85-82-5479NWJNRK (NG/ML) IN SER/PLAS18.26 ng/mLNormal6.6-1000UnRiverview Health Institute Comment on above:Performed By: #### [id number] #### [facility] (BEAKER) [address] [place], [place] [address]KWql 94-80-8958XL Attestation signed by Rickey Jackson MD at 05/02/2025 11:12 AM Rickey Jackson MD, MPH, FACC, [facility], [facility] Interventional Cardiology Pager Email: [email or web address] She is a 74-year-old woman with prior history of hypertension, diabetes and 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 H&P reviewed. The patient was examined and there are no changes to the H&P. NormalUnRiverview Health InstituteIRON AND TIBCon 19-01-2894HQXF (UG/DL) IN SER/PLAS53 ug/wJMpwbfv55-279VtkyjbsretRiverview Health InstituteComment on above:Performed By: #### [id number] ####[facility] ([facility])[address] [place], [place] [address]LHSZ BINDING CAPACITY (UG/DL) IN SER/QCCN305 ug/bOAdz711-406 [facility] CenterComment on above:Performed By: #### [id number] ####[facility] ([facility])[address] [place], [place] [address]YWBL BINDING CAPACITY.UNSATURATED (UG/DL) IN SER/VVRB704.0 ug/cNMrhdcf904.0-355.0UnRiverview Health InstituteComment on above:Performed By: #### [id number] ####[facility] ([facility])[address] [place], [place] [address]MFQV SATURATION (%) IN SER/PLAS23 %Ahynui58-75ProqztyswsRiverview Health InstituteComment on above: Performed By: #### [id number] ####[facility] ([facility])[address] [place], [place] [address]ISZBCCHYCdr 28-04-9762Kjaqdwlof [Mass/Vol]2.1 mg/dLNormal 1.9-2.7UnRiverview Health InstituteComment on above:Performed By: #### [id number] #### [facility] ([facility]) [address] [place], [place] [address]GMRV GLUCOSE METER UNSOLICITED RESULTSon 83-45-1067Dfhwbrv [Mass/Vol]212 mg/cXSldc37-693MpsaphsuvtRiverview Health InstituteComment on above:Order Comment: Waived Testing in the ED is performed under the ED CLIA certificate #[id number].Result Comment: [email or web address] By: #### [id number] #### [facility] ([facility]) [address] [place] [address]Ewbrxct [Mass/Vol]199 mg/yXLnlz85-311PoxaftwzodRiverview Health InstituteComment on above:Order Comment: Waived Testing in the ED is performed under the ED CLIA certificate #[id number].Result Comment: asavill Performed By: #### [id number] #### [facility] ([facility]) [address] [place], [place] [address]Rsietmk [Mass/Vol]158 mg/mJQhby34-721XdpdosgmbmRiverview Health InstituteComment on above:Order Comment: Waived Testing in the ED is performed under the ED CLIA certificate #[id number].Result Comment: [email or web address] Performed By: #### [id number] #### [facility] ([facility]) [address] [place], [place] [address]FADUQJKGDNMR PANELon 01-07-3769RSDITZIWQK (PG) IN RETICULOCYTES 33.9 ceLboxke84.0-36.0UnRiverview Health InstituteComment on above: Performed By: #### [id number] ####[facility] ([facility] [place], [place] [address]PGRKOCJE RETICULOCYTE FRACTION (%)22.4 %High2-16UnRiverview Health InstituteComment on above:Performed By: #### [id number] ####[facility] ([facility])[address] [place], [place] [address]UTBBTFIRPSDEY (10*6/UL) IN BLOOD0.1054 10*6/uLHigh0.0250-0.1000UnRiverview Health Institute Comment on above:Performed By: #### [id number] ####[facility] ([facility])[address] [place], [place] [address]Zdbbqotlkttth/100 RBC (Bld)3.50 %High0.50-1.80 [facility] CenterComment on above:Performed By: #### [id number] ####[facility] ([facility])[address] [place], [place] [address]PYQ3 REFLEX TO FT4on 13-84-8868JQHVZQQXVWP (MIU/L) IN SER/PLAS BY DETECTION LIMIT <= 0.05 MIU/L 4.54 mIU/LNormal0.34-5.60UnRiverview Health InstituteComment on above: Performed By: #### [id number] #### [facility] ([facility]) [address] [place], [place] [address]OCFICOK B12on 64-60-6095Vhkkvkvrc (Vitamin B12) [Mass/Vol]424 pg/rUAnghqp426-747YeddbtxcdhRiverview Health InstituteComment on above:Result Comment: REFERENCE RANGES: 180-914 pg/mL Normal 145-179 pg/mL Indeterminate <145 pg/mL DeficientPerformed By: #### [id number] #### [facility] ([facility]) [address] [place], [place] [address]Zqzzay Visiton 94-09-5804Rmtgxv-up [id number] Claudia Estrella 1950 F Date Provider Department Center 05/01/2025 DEACON CARRASCO CARD [facility] Family History Problem Relation Age of Onset Heart attack Mother Heart failure Mother Heart attack Father Family Status - Relation Status Age at Mother Father Level of Service:17992 [place] OFFICE/OUTPATIENT ESTABLISHED HIGH MDM 40 MIN Reason for Visit and Comments: Follow-up [892977] - Patient is here today for a 2 week follow up. Patient states she is not doing well, Patient is very SOB. Patient has been unable to eat, and vomiting up her medication. Patient states when she exhales she hears a whistling. Coronary Artery Disease [187] Congestive Heart Failure [127] Hypertension [055992] Heart Murmur [124] Hyperlipidemia [182] Shortness of Breath [693384] - SOB/MCALLISTER increased over the last 3 to 4 days. Patient pulse ox at home has been 84 with movement and 94 with sitting. Patient is unable to lay flat to sleep using 4 pillows. Fatigue [46] - Greatly increased Edema [7854216592] - Bilateral leg and abdominal swelling Chest Pain [693358] - Patient has been using dee for chest and back pain. 3 different times. Patient states it relieved chest and back pain Cough [28] - IncreasedNormalUniversity of St. [facility]36on [place] back from Dr. Jenkins's office and he is ok with change in Bumex dose per Dalia To. Patient made aware via message in [employer].[facility]36Regarding CXR result from 04/25/2025: Deacon To, IRISH Dias MA CXR notes mild CHF and interstitial edema. Sx's of SOB laying down is a sign of fluid retention. Recommend she increase bumex to 2mg twice daily for 3 days then 2mg AM, 1mg PM - please see if this is ok with nephro. Thanks Patient made aware. I'm waiting to hear back from Dr. Jenkins's office regarding increase in Bumex per Dalia To.[facility]36on 26-93-817442Txzuvm have her get a CXR and ask if she is feeling like she is having fluid retention. If she is thinking she may have fluid retention would like nephro's input on bumex dosing. She could benefit from a sleep study. Can also consider a 6 minute walk test, but if oxygen is needed this will need to come from PCP or pulmonary. Thank EugeniaTwin City HospitalErythrocyte distribution width Auto (RBC) [Ratio]Ordered By: Geneva Jenkins on 66-83-1547Fjqnwbmdzrj distribution width (RBC) [Ratio]14.6 %11.0-15.0[facility] Medical CenterGlomerular filtration rate (GFR) estimation in non- AmericanOrdered By: Geneva Jenkins on 22-41-2302LNV/1.73 sq M.predicted among non-blacks MDRD (S/P/Bld) [Vol rate/Area]18 mL/min/{1.73_m2}Low>=60 mL/min/1.73m 2FEast Ohio Regional HospitalHematocrit Auto (Bld) [Volume fraction]Ordered By: Geneva Jenkins on 22-85-9014Upgibczgcn (Bld) [Volume fraction]31.7 %Low36.0-48.0[facility] Medical CenterHemoglobin [Mass/volume] in BloodOrdered By: Geneva Jenkins on 84-68-7490Soexadrfkf (Bld) [Mass/Vol]10.4 g/dLLow12.0-16.0[facility] Medical CenterIron binding capacity [Mass/volume] in Serum or PlasmaOrdered By: Geneva Jenkins on 23-92-1941Usxv binding capacity [Mass/Vol]247.0 ug/dLLow 250.0-450.0Tr[facility] Medical CenterIron saturation [Mass Fraction] in Serum or PlasmaOrdered By: Geneva Jenkins on 07-86-2747Vjph saturation [Mass fraction]21.9 %[facility] CenterLaboratory - Chemistry and Chemistry - challengeOrdered By: Geneva Jenkins on 58-61-4605Rqmrked [Mass/Vol]3.7 g/dL3.4-5.0[facility] CenterCalcium [Mass/Vol]9.1 mg/dL8.5-10.1 [facility] CenterChloride [Moles/Vol]102 mmol/U22-221RzynufxjdTrumbull Regional Medical CenterCO2 [Moles/Vol]23.4 mmol/L21.0-32.0[facility] CenterCreatinine [Mass/Vol]2.63 mg/dLHigh0.55-1.02[facility] Medical CenterFerritin [Mass/Vol]220.0 ng/mL8.0-252.0[facility] Medical CenterGFR/1.73 sq M.predicted MDRD (S/P/Bld) [Vol rate/Area]22 mL/min/{1.73_m2} Low>=60 mL/min/1.73m 2FEast Ohio Regional HospitalGlucose [Mass/Vol]182 mg/zBBkfv21-481IgwynwzibTrumbull Regional Medical CenterIron [Mass/Vol]54.0 ug/dL 50.0-170.0[facility] Medical CenterMagnesium [Mass/Vol]2.4 mg/dL1.8-2.4 [facility] CenterPotassium [Moles/Vol]3.6 mmol/L3.5-5.1FWVUMedicine Barnesville Hospitalodium [Moles/Vol]134 mmol/HThc109-034BswpjohkkTrumbull Regional Medical CenterUrate [Mass/Vol]5.0 mg/dL2.6-6.0[facility] Urea nitrogen [Mass/Vol]56.0 mg/dLHigh7.0-18.0[facility] Urea nitrogen/Creatinine [Mass ratio]21.3 mg/mgTrumbull Regional Medical Center Bilirubin Ql (U)NegativeNEGMemorial HospitalGlucose (U) [Mass/Vol]NegativeNEGMemorial HospitalKetones Ql (U) NegativeNEGMemorial HospitalpH (U)6.0 [pH]5.0-9.0[facility] Cincinnatipecific gravity (U) [Rel density]1.0201.005-1.025 [facility] CenterUrobilinogen Qn (U)0.2 {Kelly'U}/dL0.2-1.0 [facility] CenterLaboratory - Specimen informationOrdered By: Geneva Jenkins on 35-93-9707Ylzeipqxvp (U)CLEARCLEARFEast Ohio Regional HospitalColor (U)LT. YELLOWYELLOWTrumbull Regional Medical CenterLaboratory - UrinalysisOrdered By: Geneva Jenkins on 08-92-3205Vwfvgrmsn esterase Test strip Ql (U)SMALLAbnormalNEGATIVETrumbull Regional Medical CenterMucus Ql (Urine sed) NONE SEENNONE SEENTrumbull Regional Medical CenterNitrite Ql (U)Negative NEGATIVETrumbull Regional Medical CenterProtein (U) [Mass/Vol]317.2 mg/dLHigh <=11.9Tr[facility] Medical CenterProtein Ql (U)>=300 mg/dLAbnormal NEG/TRACETrumbull Regional Medical CenterLeukocytes [#/volume] corrected for nucleated erythrocytes in Blood by Automated counOrdered By: Geneva Jenkins on 83-54-8338TKR corrected for nucl RBC Auto (Bld) [#/Vol]11.0 10 3/uL4.0-11.0 OhioHealthH Auto (RBC) [Entitic mass]Ordered By: Geneva Jenkins on 95-91-3942HPI (RBC) [Entitic mass]29.5 pg26.7-34.0OhioHealthHC Auto (RBC) [Mass/Vol]Ordered By: Geneva Jenkins on 04-18-2025 MCHC (RBC) [Mass/Vol]32.8 g/dL29.9-35.2FChildren's Hospital of ColumbusV Auto (RBC) [Entitic vol]Ordered By: Geneva Jenkins on 85-30-9068HYD (RBC) [Entitic vol] 89.8 fL81.0-99.0[facility] CenterNo Panel InformationOrdered By: Geneva Jenkins on 466854-Bvoeiab Vitamin D Total58.2 ng/mLTrumbull Regional Medical CenterComment on above:<20 ng/mL Vit D mzzqvsyrv87-<30 ng/mL Vit D -696 ng/mL Vit D sufficient>100 ng/mL Potential Toxicity Parathyroid Hormone (Intact)62 pg/zB65-61UsgbaqornTrumbull Regional Medical Center Comment on above:Performed at: - Lab[address] [id number] Director: Curry Rizzo PhD, Phone: [phone] Level 4.6 mg/dL2.6-4.7FEast Ohio Regional HospitalUrine BacteriaMODERATE #/HPF AbnormalNONE [facility] HospitalUrine Occult BloodSMALL AbnormalNEGATIVETrumbull Regional Medical CenterUrine Other CastsNONE SEEN #/LPFNONE [facility] HospitalUrine Other CrystalsNone Seen #/HPFNone [facility] NorthUrine Random Oakaeuvphp80.88 mg/dL20.00-300.00Tr[facility] Medical CenterUrine RBC5-10 #/HPFAbnormal0-2 [facility] CenterUrine Squamous Epithelial CellsFEW #/LPF AbnormalNONE/RARETrumbull Regional Medical CenterUrine WBC5-10 #/HPFAbnormal NONE SEENTrumbull Regional Medical CenterPlatelet mean volume Auto (Bld) [Entitic vol]Ordered By: Geneva Mary Grace on 95-82-2869Zxrkjvvu mean volume (Bld) [Entitic vol]11.1 fL9.5-13.5FEast Ohio Regional HospitalPlatelets Auto (Bld) [#/Vol]Ordered By: Geneva Mary Grace on 28-99-4072Daajqpgzn (Bld) [#/Vol]191 10 3/mY678-620BgvdkyfrwTrumbull Regional Medical CenterRBC Auto (Bld) [#/Vol]Ordered By: Geneva Mary Grace on 72-27-3420ZRT (Bld) [#/Vol]3.53 10 6/uLLow4.20-5.40Select [facility] Hospital - Cincinnatierum or plasma anion gap determinationOrdered By: Geneva Murillor on 27-37-1574Tpdpm gap [Moles/Vol]12.2 mmol/LFEast Ohio Regional HospitalUrine protein/creatinine ratioOrdered By: Geneva Dicksondir on 04-18-2025 Protein/Creatinine (U) [Ratio]4.07[facility]37on *Will have her go back up to 75mg BID for HTN management. *Increase bumex to 2mg BID. *Have weekly labs to follow-up on kidney functionNormalUniversity of St. Luke'S [facility] Luke'S Medical CenterOffice Visiton 76-30-0869Duwdrl-up [id number] Claudia Estrella 1950 F Date Provider Department Center 04/15/2025 Doug-DEACON TO Family History Problem Relation Age of Onset Heart attack Mother Heart failure Mother Heart attack Father Family Status - Relation Status Age at Mother Father Level of Service:51896 [place] OFFICE/OUTPATIENT ESTABLISHED MOD MDM 30 MIN Reason for Visit and Comments: Follow-up [349240] - Patient is here today for a follow up [facility] admission. Patient states she feels better but not great. Patient states the Hospitalist changed her medications and cut her bumex in half, changed her potassium to 1 a day. Coronary Artery Disease [187] Hypertension [261277] Hyperlipidemia [182] Congestive Heart Failure [127] Heart Murmur [124] stage 4 kidney disease [Other] Shortness of Breath [238489] - MCALLISTER.NormalCincinnati VA Medical Center Orders Gwen 72-21-2800Hzeowy [id number] Claudia Estrella 1950 F Date Provider Department Center 04/10/2025 [id number], HISTORICAL [facility] Family History Problem Relation Age of Onset Heart attack Mother Heart failure Mother Heart attack Father Family Status - Relation Status Age at Mother Father DeceasedNormalUniTrumbull Memorial Hospital 95-31-4097EPZY Cardiology [facility] Subjective Claudia Estrella is a [...] warm and dry. Neurologi (more content not included)...NormalUnRiverview Health InstituteOffice Visiton 09-02-9531Lvexqj-up [id number] Claudia Estrella 1950 F Date Provider Department Center 04/07/[address] [facility] Family History Problem Relation Age of Onset Heart attack Mother Heart failure Mother Heart attack Father Family Status - Relation Status Age at Mother Father Level of Service:44095 [place] OFFICE/OUTPATIENT ESTABLISHED MOD MDM 30 [facility] SystemErythrocyte distribution width Auto (RBC) [Ratio]Ordered By: Geneva Jenkins on 04-01-2433Gbsyefzqtwq distribution width (RBC) [Ratio]13.7 %11.0-15.0[facility] CenterEstimated glomerular filtration rate (GFR) non- AmericanOrdered By: Geneva Jenkins on 01-20-2025 GFR/1.73 sq M.predicted among non-blacks MDRD (S/P/Bld) [Vol rate/Area]20 mL/min/{1.73_m2}Low>=60 mL/min/1.73m [address] [place] [address] Hematocrit Auto (Bld) [Volume fraction]Ordered By: Geneva Jenkins on 01-20-2025 Hematocrit (Bld) [Volume fraction]32.6 %Low36.0-48.0[facility] CenterHemoglobin [Mass/volume] in BloodOrdered By: Geneva Jenkins on 01-20-2025 Hemoglobin (Bld) [Mass/Vol]11.1 g/dLLow12.0-16.0[facility] CenterIron binding capacity [Mass/volume] in Serum or PlasmaOrdered By: Geneva Jenkins on 68-04-4685Qndi binding capacity [Mass/Vol]279.0 ug/dL250.0-450.0 [facility] CenterIron saturation [Mass Fraction] in Serum or PlasmaOrdered By: Geneva Jenkins on 05-47-0526Qrrk saturation [Mass fraction]17.9 % [facility] CenterLaboratory - Chemistry and Chemistry - challengeOrdered By: Geneva Jenkins on 72-52-7438Rbheoaq [Mass/Vol]3.2 g/dLLow 3.4-5.0[facility] CenterCalcium [Mass/Vol]9.2 mg/dL8.5-10.1 [facility] CenterChloride [Moles/Vol]105 mmol/V56-650EhqdepznlTrumbull Regional Medical CenterCO2 [Moles/Vol]25.4 mmol/L21.0-32.0[facility] CenterCreatinine [Mass/Vol]2.33 mg/dLHigh0.55-1.02[facility] Medical CenterGFR/1.73 sq M.predicted MDRD (S/P/Bld) [Vol rate/Area]25 mL/min/{1.73_m2}Low>=60 mL/min/1.73m 2FEast Ohio Regional HospitalGlucose [Mass/Vol]158 mg/nRMkik35-328QresuixjdTrumbull Regional Medical CenterIron [Mass/Vol] 50.0 ug/dL50.0-170.0[facility] Medical CenterMagnesium [Mass/Vol]2.1 mg/dL1.8-2.4FEast Ohio Regional HospitalPotassium [Moles/Vol]4.2 mmol/L 3.5-5.1FWVUMedicine Barnesville Hospitalodium [Moles/Vol]142 mmol/M111-502 [facility] Medical CenterUrate [Mass/Vol]5.4 mg/dL2.6-6.0[facility] CenterUrea nitrogen [Mass/Vol]50.0 mg/dLHigh7.0-18.0[facility] CenterUrea nitrogen/Creatinine [Mass ratio]21.5 mg/mgTrumbull Regional Medical CenterBilirubin Ql (U)NegativeNEGMemorial HospitalGlucose (U) [Mass/Vol]NegativeNEGATIVETrumbull Regional Medical CenterKetones Ql (U)NegativeNEGMemorial HospitalpH (U)6.0 [pH]5.0-9.0[facility] Hospital - Cincinnatipecific gravity (U) [Rel density] 1.0201.005-1.025Trumbull [facility] CenterUrobilinogen Qn (U)0.2 {Kelly'U}/dL0.2-1.0[facility] CenterLaboratory - Specimen informationOrdered By: Geneva Jenkins on 48-54-7833Uowgvwikqs (U)CLEARCLEVELAND CLINICAR [facility] CenterColor (U)LT. YELLOWYELLOWTrumbull Regional Medical CenterLaboratory - UrinalysisOrdered By: Geneva Jenkins on 01-20-2025 Leukocyte esterase Test strip Ql (U)TRACEAbnormalNEGMemorial HospitalMucus Ql (Urine sed)TRACEAbnormalNONE SEENTrumbull Regional Medical CenterNitrite Ql (U)NegativeNEGATIVETrumbull Regional Medical Center Protein (U) [Mass/Vol]167.6 mg/dLHigh<=11.9[facility] Protein Ql (U)>=300 mg/dLAbnormalNEG/TRACETrumbull Regional Medical Center Leukocytes [#/volume] corrected for nucleated erythrocytes in Blood by Automated counOrdered By: Geneva Jenkins on 64-65-6756EIY corrected for nucl RBC Auto (Bld) [#/Vol]9.0 10 3/uL4.0-11.0[facility] Auto (RBC) [Entitic mass]Ordered By: Geneva Jenkins on 95-28-6975MTL (RBC) [Entitic mass]29.8 pg26.7-34.0[facility] Auto (RBC) [Mass/Vol]Ordered By: Geneva Jenkins on 90-39-2999GJMT (RBC) [Mass/Vol]34.0 g/dL29.9-35.2FChildren's Hospital of ColumbusV Auto (RBC) [Entitic vol]Ordered By: Geneva Jenkins on 60-55-9203CEJ (RBC) [Entitic vol]87.4 fL81.0-99.0[facility] CenterNo Panel InformationOrdered By: Geneva Jenkins on 944051-Ddthral Vitamin D Total46.0 ng/mLTrumbull Regional Medical CenterComment on above:<20 ng/mL Vit D jbgwmavcy41-<30 ng/mL Vit D ranirkxvando45-017 ng/mL Vit D sufficient>100 ng/mL Potential ToxicityMiscellaneous TestCOMMENT.[facility] CenterComment on above:Test Ordered: 307500 FerritinFerritin 153 [H ] ng/mL Reference Range: 15-150Performed at: [facility] [address] [place] [id number] Director: Curry Rizzo PhD, Phone: [phone] Hormone (Intact)58 pg/fU09-72SufssjnrqTrumbull Regional Medical CenterComment on above:Performed at: [facility] [address] [id number] Director: Curry Rizzo PhD, Phone: [phone] Phosphorus Level4.6 mg/dL2.6-4.7FEast Ohio Regional HospitalUrine Bacteria TRACE #/HPFAbnormalNONE [facility] HospitalUrine Occult Blood TRACE-INEGATIVETrumbull Regional Medical CenterUrine Other CastsNONE SEEN #/LPF NONE [facility] HospitalUrine Other CrystalsNone Seen #/HPF None [facility] NorthUrine Random Yayrlundvx07.76 mg/dL 20.00-300.00[facility] CenterUrine RBC2-5 #/HPFAbnormal0-2 [facility] CenterUrine Squamous Epithelial CellsFEW #/LPF AbnormalNONE/RARETrumbull Regional Medical CenterUrine WBC0-2 #/HPFAbnormalNONE [facility] HospitalPlatelet mean volume Auto (Bld) [Entitic vol]Ordered By: Geneva Mary Grace on 13-17-0165Taiqnnme mean volume (Bld) [Entitic vol]10.6 fL9.5-13.5FEast Ohio Regional HospitalPlatelets Auto (Bld) [#/Vol] Ordered By: Geneva Mary Grace on 10-43-3710Urjlckekr (Bld) [#/Vol]177 10 3/oN081-146 [facility] CenterRBC Auto (Bld) [#/Vol]Ordered By: Geneva Mary Grace on 52-98-5424YVM (Bld) [#/Vol]3.73 10 6/uLLow4.20-5.40[facility] Cincinnatierum or plasma anion gap determinationOrdered By: Geneva Jenkins on 91-01-7831Etlgh gap [Moles/Vol]15.8 mmol/LFEast Ohio Regional HospitalUrine protein/creatinine ratioOrdered By: Geneva Jenkins on 98-69-3589Wynjukc/Creatinine (U) [Ratio]5.45[facility] CenterPerimetry studyon 11-26-2024 [facility]Rad[facility] (narrative)[facility]36on 93-65-518381Qfhwslbkc echo result from 10/04/2024: MD Michelle Tna MA Please tell her the echo showed normal cardiac function with evidence of extra fluid in the body. Depending on symptoms of shortness of breath, she can take extra 0.5 tablet of bumex on as needed basis. Follow up as planned. Patient informed. She verbalized understanding.NormalUnRiverview Health InstituteOffice Visiton 89-25-2551Uyoahb-up [id number] Claudia Estrella 1950 F Date Provider Department Center 09/16/2024 KARTHIK MACKAY ADY Calero Family History Problem Relation Age of Onset Heart attack Mother Heart failure Mother Heart attack Father Family Status - Relation Status Age at Mother Father Level of Service:05669 [place] OFFICE/OUTPATIENT ESTABLISHED MOD MDM 30 [facility] SystemErythrocyte distribution width Auto (RBC) [Ratio]on 72-07-3359Cllejvbgejo distribution width (RBC) [Ratio]Erythrocyte distribution width [Ratio] by Automated count11.0-15.0[facility] CenterEstimated glomerular filtration rate (GFR) non- Americanon 44-12-7775HPP/1.73 sq M.predicted among non-blacks MDRD (S/P/Bld) [Vol rate/Area]Estimated glomerular filtration rate (GFR) non- AmericanLow>=60 mL/min/1.73m 2FEast Ohio Regional HospitalHematocrit Auto (Bld) [Volume fraction]on 95-48-8813Tckshjrpld (Bld) [Volume fraction]Hematocrit [Volume Fraction] of Blood by Automated ewvgvHap38.0-48.0[facility] CenterHemoglobin [Mass/volume] in Bloodon 00-39-2648Lbuhxruppj (Bld) [Mass/Vol] Hemoglobin [Mass/volume] in GjzbwRwh46.0-16.0[facility] Iron binding capacity [Mass/volume] in Serum or Plasmaon 50-44-3983Mskp binding capacity [Mass/Vol]Iron binding capacity [Mass/volume] in Serum or PlasmaLow 250.0-450.0[facility] CenterIron saturation [Mass Fraction] in Serum or Plasmaon 16-18-2333Izda saturation [Mass fraction]Iron saturation [Mass Fraction] in Serum or PlasmaTrumbull Regional Medical CenterLaboratory - Chemistry and Chemistry - challengeon 10-48-9518Qauotlu [Mass/Vol]3.4 g/dL 3.4-5.0[facility] CenterCalcium [Mass/Vol]9.3 mg/dL8.5-10.1 [facility] CenterChloride [Moles/Vol]100 mmol/L67-772BipihjoofTrumbull Regional Medical CenterCO2 [Moles/Vol]28.1 mmol/L21.0-32.0[facility] CenterCreatinine [Mass/Vol]2.44 mg/dLHigh0.55-1.02[facility] CenterFerritin [Mass/Vol]145.0 ng/mL8.0-252.0[facility] CenterGFR/1.73 sq M.predicted MDRD (S/P/Bld) [Vol rate/Area]24 mL/min/{1.73_m2} Low>=60 mL/min/1.73m 2FEast Ohio Regional HospitalGlucose [Mass/Vol]162 mg/yYAytc11-500PrshkebvpTrumbull Regional Medical CenterIron [Mass/Vol]53.0 ug/dL 50.0-170.0[facility] CenterMagnesium [Mass/Vol]2.0 mg/dL1.8-2.4 [facility] CenterPotassium [Moles/Vol]3.2 mmol/LLow3.5-5.1 [facility] Cincinnatiodium [Moles/Vol]140 mmol/I553-375YhtlngclhTrumbull Regional Medical CenterUrate [Mass/Vol]6.3 mg/dLHigh2.6-6.0[facility] CenterUrea nitrogen [Mass/Vol]46.0 mg/dLHigh7.0-18.0[facility] CenterUrea nitrogen/Creatinine [Mass ratio]18.9 mg/mgTrumbull Regional Medical CenterLaboratory - Urinalysison 28-30-5769Aokqcfi (U) [Mass/Vol]197.4 mg/dLHigh<=11.9[facility] CenterLeukocytes [#/volume] corrected for nucleated erythrocytes in Blood by Automated counon 14-26-8350HRX corrected for nucl RBC Auto (Bld) [#/Vol]Leukocytes [#/volume] corrected for nucleated erythrocytes in Blood by Automated coun4.0-11.0[facility] MCH Auto (RBC) [Entitic mass]on 78-43-4367CQG (RBC) [Entitic mass]MCH [Entitic mass] by Automated count26.7-34.0[facility] CenterMCHC Auto (RBC) [Mass/Vol]on 08-72-3549PRXM (RBC) [Mass/Vol]MCHC [Mass/volume] by Automated count29.9-35.2FEast Ohio Regional HospitalMCV Auto (RBC) [Entitic vol]on 15-74-9722SZW (RBC) [Entitic vol]MCV [Entitic volume] by Automated count 81.0-99.0[facility] CenterNo Panel Informationon 22-22-132706- Hydroxy Vitamin D Total51.6 ng/mLTrumbull Regional Medical CenterComment on above:<20 ng/mL Vit D chueboihh99-<30 ng/mL Vit D uqdkpqgdwzza56-985 ng/mL Vit D sufficient>100 ng/mL Potential ToxicityParathyroid Hormone (Intact)78 pg/mL Vfrdhtke25-63FjymphsnmTrumbull Regional Medical CenterComment on above:Performed at: - [facility] [id number] Director: Curry Rizzo PhD, Phone: [phone] Level5.4 mg/dLHigh2.6-4.7FEast Ohio Regional HospitalUrine Random Krlqpdiyux54.10 mg/dL20.00-300.00[facility] CenterPlatelet mean volume Auto (Bld) [Entitic vol]on 63-28-5648Jskfbbqi mean volume (Bld) [Entitic vol]Platelet mean volume [Entitic volume] in Blood by Automated count9.5-13.5FEast [facility] Platelets Auto (Bld) [#/Vol]on 96-11-1589Tvkfonnmn (Bld) [#/Vol]Platelets [#/volume] in Blood by Automated zepwe016-406ZtfkradueTrumbull Regional Medical Center RBC Auto (Bld) [#/Vol]on 93-90-0678PMZ (Bld) [#/Vol]Erythrocytes [#/volume] in Blood by Automated countLow4.20-5.40[facility] Cinc[facility]atierum or plasma anion gap determinationon 11-91-2142Sxtny gap [Moles/Vol]Serum or plasma anion gap determinationTrumbull Regional Medical CenterUrine protein/creatinine ratioon 42-63-6973Hyrzjxc/Creatinine (U) [Ratio]Urine protein/creatinine ratio [facility] CenterOphthalmic OCT panelon 53-33-9853RSYYColumbia Regional Hospital Eye Images reviewed and comparison made to baseline, Images reviewed. To assess optic nerve function and for use in future follow-up. Reliability: good and adequate. Left Eye Images reviewed and comparison made to baseline, Images reviewed. To assess optic nerve function and for use in future follow-up. Reliability: good and adequate. Notes Superior nerve fiber layer (NFL) thinning both eyes (OU). Stable.[facility] HealthcareRadiology Study observation (narrative)[facility] HealthcareOptical coherence tomography study reporton 79-57-3280EIXAFormerly [facility] Radiology Study observation (narrative)[facility] CenterErythrocyte distribution width Auto (RBC) [Ratio]on 66-55-9099Cwiicsrdxok distribution width (RBC) [Ratio]Erythrocyte distribution width [Ratio] by Automated zjswrGyla45.0-15.0 [facility] CenterEstimated glomerular filtration rate (GFR) non- Americanon 60-17-1005MQF/1.73 sq M.predicted among non-blacks MDRD (S/P/Bld) [Vol rate/Area]Estimated glomerular filtration rate (GFR) non- AmericanLow>=60 mL/min/1.73m 2FEast [facility] Regional HospitalHematocrit Auto (Bld) [Volume fraction]on 09-26-7804Lnmvpgipyx (Bld) [Volume fraction]Hematocrit [Volume Fraction] of Blood by Automated oylboGok26.0-48.0[facility] CenterHemoglobin [Mass/volume] in Bloodon 20-27-4780Tecfulnady (Bld) [Mass/Vol]Hemoglobin [Mass/volume] in QxkynQnd73.0-16.0[facility] CenterIron binding capacity [Mass/volume] in Serum or Plasmaon 92-43-9698Qaou binding capacity [Mass/Vol]Iron binding capacity [Mass/volume] in Serum or Bsesgg556.0-450.0[facility] CenterIron saturation [Mass Fraction] in Serum or Plasmaon 72-92-0573Dsqk saturation [Mass fraction] Iron saturation [Mass Fraction] in Serum or PlasmaTrumbull Regional Medical CenterLaboratory - Chemistry and Chemistry - challengeon 78-48-6841Xsbksgm [Mass/Vol]3.3 g/dLLow3.4-5.0[facility] CenterCalcium [Mass/Vol] 9.2 mg/dL8.5-10.1FEast [facility] Regional HospitalChloride [Moles/Vol]103 mmol/L 98-107[facility] CenterCO2 [Moles/Vol]25.9 mmol/L21.0-32.0 [facility] CenterCreatinine [Mass/Vol]2.24 mg/dLHigh0.55-1.02 [facility] CenterFerritin [Mass/Vol]151.0 ng/mL8.0-252.0 [facility] CenterGFR/1.73 sq M.predicted MDRD (S/P/Bld) [Vol rate/Area]26 mL/min/{1.73_m2}Low>=60 mL/min/1.73m 2FEast [facility] HospitalGlucose [Mass/Vol]169 mg/jQKrsi13-957WklxspqyiTrumbull Regional Medical CenterIron [Mass/Vol]41.0 ug/dLLow50.0-170.0[facility] CenterMagnesium [Mass/Vol]2.0 mg/dL1.8-2.4FEast [facility] HospitalPotassium [Moles/Vol] 3.6 mmol/L3.5-5.1FWVUMedicine Barnesville Hospitalodium [Moles/Vol]141 mmol/L 136-145[facility] CenterUrate [Mass/Vol]5.1 mg/dL2.6-6.0 [facility] CenterUrea nitrogen [Mass/Vol]44.0 mg/dLHigh7.0-18.0 [facility] CenterUrea nitrogen/Creatinine [Mass ratio]19.6 mg/mg [facility] CenterBilirubin Ql (U)NegativeNEGATIVETrumbull Regional Medical CenterGlucose (U) [Mass/Vol]NegativeNEGATIVETrumbull Regional Medical CenterKetones Ql (U)NegativeNEGATIVETrumbull Regional Medical CenterpH (U)5.5 [pH]5.0-9.0[facility] Cincinnatipecific gravity (U) [Rel density]1.0201.005-1.025[facility] CenterUrobilinogen Qn (U)0.2 {Kelly'U}/dL0.2-1.0[facility] CenterLaboratory - Specimen informationon 05-14-0220Vlceolazmv (U)CLEARCLEARFEast Ohio Regional HospitalColor (U)LT. YELLOWYELLOWTrumbull Regional Medical CenterLaboratory - Urinalysison 12-85-9212Rwqntko casts LM Ql (Urine sed)RARETrumbull Regional Medical CenterLeukocyte esterase Test strip Ql (U)MODERATEAbnormalNEGATIVE [facility] CenterMucus Ql (Urine sed)TRACEAbnormalNONE SEEN [facility] CenterNitrite Ql (U)NegativeNEGATIVETrumbull Regional Medical CenterProtein (U) [Mass/Vol]122.0 mg/dLHigh<=11.9[facility] CenterProtein Ql (U)100 mg/dLAbnormalNEG/TRACETrumbull Regional Medical CenterLeukocytes [#/volume] corrected for nucleated erythrocytes in Blood by Automated counon 02-64-2540RDO corrected for nucl RBC Auto (Bld) [#/Vol]Leukocytes [#/volume] corrected for nucleated erythrocytes in Blood by Automated coun4.0-11.0[facility]HealthH Auto (RBC) [Entitic mass]on 83-60-1997DDB (RBC) [Entitic mass]MCH [Entitic mass] by Automated count26.7-34.0OhioHealthHC Auto (RBC) [Mass/Vol]on 49-67-8131KBNM (RBC) [Mass/Vol]MCHC [Mass/volume] by Automated count29.9-35.2FEast [facility] Regional HospitalMCV Auto (RBC) [Entitic vol]on 76-55-5357KYT (RBC) [Entitic vol]MCV [Entitic volume] by Automated count 81.0-99.0[facility] CenterNo Panel Informationon - Hydroxy Vitamin D Total56.3 ng/mLTrumbull Regional Medical CenterComment on above:<20 ng/mL Vit D rywwdjceq09-<30 ng/mL Vit D vrduiijqzbkq74-645 ng/mL Vit D sufficient>100 ng/mL Potential ToxicityParathyroid Hormone (Intact)9 pg/mL Caklbopi08-42UznggnlltTrumbull Regional Medical CenterComment on above:Performed at: [facility] [id number] Director: Curry Rizzo PhD, Phone: [phone] Level4.8 mg/dLHigh2.6-4.7FEast [facility] HospitalUrine BacteriaSMALL #/HPFAbnormalNONE [facility] HospitalUrine Occult BloodNegativeNEGATIVETrumbull Regional Medical CenterUrine Other CastsSEEN #/LPFAbnormalNONE SEENTrumbull Regional Medical CenterUrine Other CrystalsNone Seen #/HPFNone [facility] NorthUrine Random Tcgxesibnd62.86 mg/dL20.00-300.00[facility] CenterUrine RBC0-2 #/HPF0-2FEast [facility] HospitalUrine Squamous Epithelial CellsMODERATE #/LPFAbnormalNONE/RARETrumbull Regional Medical CenterUrine WBC2-5 #/HPFAbnormalNONE [facility] HospitalPlatelet mean volume Auto (Bld) [Entitic vol]on 60-85-9652Jawbguar mean volume (Bld) [Entitic vol]Platelet mean volume [Entitic volume] in Blood by Automated count9.5-13.5FEast [facility] HospitalPlatelets Auto (Bld) [#/Vol]on 57-31-1773Hgwrreuhy (Bld) [#/Vol]Platelets [#/volume] in Blood by Automated lyvpz572-531RtpkdihayTrumbull Regional Medical CenterRBC Auto (Bld) [#/Vol]on 41-12-9507VTL (Bld) [#/Vol]Erythrocytes [#/volume] in Blood by Automated count Low4.20-5.40[facility] Cincinnatierum or plasma anion gap determinationon 95-16-6879Upkoc gap [Moles/Vol]Serum or plasma anion gap determinationTrumbull Regional Medical CenterUrine protein/creatinine ratioon 45-01-1766Ujwbcmm/Creatinine (U) [Ratio]Urine protein/creatinine ratioTrumbull Regional Medical CenterAlbumin [Mass/volume] in Serum or Plasmaon 01-01-2024 Albumin [Mass/Vol]3.5 g/dL2.9-4.4FEast [facility] HospitalErythrocyte distribution width Auto (RBC) [Ratio]on 86-38-2567Ojabcutmdnp distribution width (RBC) [Ratio]15.2 %High11.0-15.0[facility] CenterEstimated glomerular filtration rate (GFR) non- Americanon 00-04-7751MIW/1.73 sq M.predicted among non-blacks MDRD (S/P/Bld) [Vol rate/Area]21 mL/min/{1.73_m2} Low>=60[facility] CenterHematocrit Auto (Bld) [Volume fraction] on 49-93-1740Joenznivzd (Bld) [Volume fraction]32.4 %Low36.0-48.0[facility] CenterHemoglobin [Mass/volume] in Bloodon 08-78-8944Jwdsyutdms (Bld) [Mass/Vol]10.4 g/dLLow12.0-16.0[facility] CenterIgA [Mass/volume] in Serum or Plasmaon 83-98-2891CmL [Mass/Vol]580 mg/dLAbnormal 64-422Tr[facility] CenterIgG [Mass/volume] in Serum or Plasmaon 67-47-7167DxN [Mass/Vol]1132 mg/vF544-4599OclacmksnTrumbull Regional Medical CenterIgM [Mass/volume] in Serum or Plasmaon 22-96-3275VnL [Mass/Vol]155 mg/nS83-325 [facility] CenterImmunofixation for Urineon 01-01-2024 Interpretation Immunofixation (U) [Interp]Comment.[facility] CenterComment on above:No monoclonality detected.Performed at: [employer] [place], [place] [id number] Director: Curry Rizzo PhD, Phone: [phone] light chains.kappa.free [Mass/volume] in Serum on 71-46-4569Clkomzjkaycakp light chains.kappa.free (S) [Mass/Vol]75.5 mg/L Abnormal3.3-19.4FEast Ohio Regional HospitalImmunoglobulin light chains.kappa.free/Immunoglobulin light chains.lambda.free [Priscilla 01-01-2024 Immunoglobulin light chains.kappa.free/Immunoglobulin light chains.lambda.free (S) [Mass ratio]1.250.26-1.65[facility] CenterComment on above: Performed at: [employer] [place], [place] [id number] Director: Curry Rizzo PhD, Phone: [phone] light chains.lambda.free [Mass/volume] in Serum or Plasmaon 72-81-7007Otjombwscappxn light chains.lambda.free [Mass/Vol]60.4 mg/LAbnormal5.7-26.3FEast [facility] HospitalIron binding capacity [Mass/volume] in Serum or Plasmaon 95-20-0956Kztr binding capacity [Mass/Vol]266.0 ug/dL250.0-450.0[facility] CenterIron saturation [Mass Fraction] in Serum or Plasmaon 61-80-0998Zxpn saturation [Mass fraction]16.2 %[facility] Laboratory - Chemistry and Chemistry - challengeon 95-52-2843Xqdpfhw [Mass/Vol] 3.3 g/dLLow3.4-5.0[facility] CenterCalcium [Mass/Vol]9.2 mg/dL 8.5-10.1FEast [facility] HospitalChloride [Moles/Vol]103 mmol/L98-107 [facility] CenterCO2 [Moles/Vol]27.3 mmol/L21.0-32.0[facility] CenterCreatinine [Mass/Vol]2.28 mg/dLHigh0.55-1.02[facility] CenterFerritin [Mass/Vol]123.0 ng/mL8.0-252.0[facility] CenterGFR/1.73 sq M.predicted MDRD (S/P/Bld) [Vol rate/Area]26 mL/min/{1.73_m2}Low>=60[facility] CenterGlucose [Mass/Vol]139 mg/yFUxst48-880OopoinpxoTrumbull Regional Medical CenterIron [Mass/Vol]43.0 ug/dLLow 50.0-170.0[facility] CenterMagnesium [Mass/Vol]2.3 mg/dL1.8-2.4 [facility] CenterPotassium [Moles/Vol]4.4 mmol/L3.5-5.1FWVUMedicine Barnesville Hospitalodium [Moles/Vol]138 mmol/C631-143MbybxigghTrumbull Regional Medical CenterUrate [Mass/Vol]5.9 mg/dL2.6-6.0[facility] Urea nitrogen [Mass/Vol]50.0 mg/dLHigh7.0-18.0[facility] Urea nitrogen/Creatinine [Mass ratio]21.9 mg/mgTrumbull Regional Medical Center Laboratory - Urinalysison 70-25-6615Vxprztb (U) [Mass/Vol]93.2 mg/dLHigh<=11.9 [facility] CenterLeukocytes [#/volume] corrected for nucleated erythrocytes in Blood by Automated counon 58-98-6409LYO corrected for nucl RBC Auto (Bld) [#/Vol]8.9 10 3/uL4.0-11.0[facility]HealthH Auto (RBC) [Entitic mass]on 64-71-3481SBY (RBC) [Entitic mass]27.4 pg26.7-34.0 [facility] CenterMCHC Auto (RBC) [Mass/Vol]on 70-26-2257CSOX (RBC) [Mass/Vol]32.1 g/dL29.9-35.2FEast [facility] Regional HospitalMCV Auto (RBC) [Entitic vol]on 79-64-0652CIK (RBC) [Entitic vol]85.3 fL81.0-99.0[facility] CenterNo Panel Informationon 32-54-413463614451-Rkqhgks Vitamin D Total53.8 ng/mLTrumbull Regional Medical CenterComment on above:<20 ng/mL Vit D kctedqxwh69-<30 ng/mL Vit D mhmcbzzlgkja33-578 ng/mL Vit D sufficient>100 ng/mL Potential ToxicityParathyroid Hormone (Intact)95 pg/xEQazwwmau77-39NdnpfvzgxTrumbull Regional Medical CenterComment on above:Performed at: - [facility] [id number] Director: Curry Rizzo PhD, Phone: [phone] Level4.0 mg/dL2.6-4.7FEast [facility] Protein Electrophoresis M-SpikeNot Observed g/dLNot ObservedTrumbull Regional Medical CenterProtein Electrophoresis NoteComment.[facility] CenterComment on above:Protein electrophoresis scan will follow via computer,mail, or boat driver delivery.Urine Random Laklhqwgym35.24 mg/dL 20.00-300.00[facility] CenterPlatelet mean volume Auto (Bld) [Entitic vol]on 82-96-4582Kxlrjqyo mean volume (Bld) [Entitic vol]10.9 fL 9.5-13.5FEast [facility] HospitalPlatelets Auto (Bld) [#/Vol]on 84-60-3399Jivzvnjld (Bld) [#/Vol]184 10 3/tK113-379GxqoqrbhvTrumbull Regional Medical CenterProtein [Mass/volume] in Serum or Plasmaon 90-74-1372Lmwihwm [Mass/Vol]7.0 g/dL6.0-8.5FEast [facility] HospitalRBC Auto (Bld) [#/Vol]on 01-01-2024 RBC (Bld) [#/Vol]3.80 10 6/uLLow4.20-5.40[facility] Cincinnatierum globulin measurement (mass/volume)on 32-98-7210Grurlqia (S) [Mass/Vol]3.5 g/dL 2.2-3.9[facility]atierum or plasma albumin/globulin mass ratioon 32-04-1481Yhasexj/Globulin [Mass ratio]1.1 {ratio}0.7-1.7FWVUMedicine Barnesville Hospitalerum or plasma alpha 1 globulin measurement by electrophoresis (mass/volume)on 70-28-8254Jpwxt 1 globulin Elph [Mass/Vol]0.3 g/dL0.0-0.4FWVUMedicine Barnesville Hospitalerum or plasma alpha 2 globulin measurement by electrophoresis (mass/volume)on 62-84-0544Dcxhx 2 globulin Elph [Mass/Vol]0.9 g/dL0.4-1.0[facility]atierum or plasma anion gap determinationon 68-98-2549Qzjch gap [Moles/Vol]12.1 mmol/LFWVUMedicine Barnesville Hospitalerum or plasma beta globulin measurement by electrophoresis (mass/volume)on 85-73-0943Sfug globulin Elph [Mass/Vol]1.1 g/dL0.7-1.3FWVUMedicine Barnesville Hospitalerum or plasma gamma globulin measurement by electrophoresis (mass/volume)on 84-38-2392Uwynn globulin Elph [Mass/Vol]1.3 g/dL 0.4-1.8[facility]atierum or plasma immunoelectrophoresis interpretationon 50-53-9240Saucphevmtctqx IEP [Interp]Comment.[facility] CenterComment on above:No monoclonality detected.Urine protein/creatinine ratioon 26-69-8332Liszkjp/Creatinine (U) [Ratio]1.06[facility] CenterUS Thyroid glandon 40-23-5158[place] [address] Ultrasound Report Signed Patient: CLAUDIA ESTRELLA MR#: [id number] : 1950 Acct:[id number] Age/Sex: 73 / F ADM Date: 09/06/23 Loc: US Attending Dr: Sheyla Love M.D. Ordering Physician: Sheyla Love M.D. Date of Service: 09/06/23 Procedure(s): US thyroid Accession Number(s): [id number] cc: JOHN PERDOMO D.O.; Sheyla Love M.D. [place] [address] Patient Name: CLAUDIA ESTRELLA MRN: [id number] date: 1950 Sex: F Assigned Patient Location: US Current Patient Location: US Accession/Order Number: [id number] Exam Date: 09/06/2023 15:00 Report Date: 09/09/2023 04:18 At the request of: SHEYLA LOVE Procedure: US thyroid EXAMINATION: US thyroid HISTORY: [...] (0% risk of malignancy) Electronically authenticated by: RENETTA RENEE Date: 09/09/2023 04:18 Dictated By: Renetta Renee M.D. Signed By: 09/09/230 DD/ 0418 TD/TT: Fender Finisher:TBHRadiology, Radiologist, MD - 09/09/2023 [place] [address] Ultrasound Report Signed Patient: CLAUDIA ESTRELLA MR#: [id number] : 1950 Acct:[id number] Age/Sex: 73 / F ADM Date: 09/06/23 Loc: US Attending Dr: Sheyla Love M.D. Ordering Physician: Sheyla Love M.D. Date of Service: 09/06/23 Procedure(s): US thyroid Accession Number(s): [id number] cc: JOHN PERODMO D.O.; Sheyla Love M.D. [facility] [place] [id number] Patient Name: CLAUDIA ESTRELLA MRN: [id number] date: 1950 Sex: F Assigned Patient Location: US Current Patient Location: US Accession/Order Number: [id number] Exam Date: 09/06/2023 15:00 Report Date: 09/09/2023 04:18 At the request of: SHEYLA LOVE Procedure: US thyroid EXAMINATION: US thyroid HISTORY: [...] (0% risk of malignancy) Electronically authenticated by: RENETTA RENEE Date: 09/09/2023 04:18 Dictated By: Renetta Renee M.D. Signed By: 09/09/23419 DD/ 7 TD/TT: Fender Finisher: [facility] CenterRadiology Study observation (narrative)[facility] CenterUS Thyroid glandOrdered By: Radiologist Radiology on [id number] Psychiatric Center Work Phone: bNPon [id number] peptide B (Bld) [Mass/Vol] 1458.0 pg/mLCritically high<=900.0The [facility]'S HospitalComment on above: Performed By: #### LIPID, TSH, FT3 #### [facility] [address] [place] [address] Dr. Andrey Jimenez AUTO DIFFon [id number] #0.1 103/ulNormal0.0-0.1The [facility]. [facility]'S HospitalComment on above:Performed By: #### VITAD, FETIBC, FERR #### [facility] [address] [place] [address] Dr. Andrey Worthingtonsophils/100 WBC (Bld)0.7 %Normal0.2-2.0The [facility] Comment on above:Performed By: #### VITAD, FETIBC, FERR #### [facility] [address] [place] [address] Dr. Andrey Copeland #0.4 103/ulNormal0.0-0.7The [facility]S HospitalComment on above: Performed By: #### VITAD, FETIBC, FERR #### [facility] [address] [place] [address] Dr. Andrey Wilkinsonosinophils/100 WBC (Bld)4.6 %Normal0.9-7.0The [facility] Comment on above:Performed By: #### VITAD, FETIBC, FERR #### [facility] [address] [place] [address] Dr. Andrey Wilkinsonrythrocyte distribution width (RBC) [Ratio]13.7 %Vuwotk87.0-15.[address] [facility] HospitalComment on above:Performed By: #### VITAD, FETIBC, FERR #### [facility] [address] [place] [address] Dr. Andrey HargroveHematocrit (Bld) [Volume fraction]35.5 %Critically low36.0-48.0 [facility] on above:Performed By: #### VITAD, FETIBC, FERR #### [facility] [address] [place] [address] Dr. Andrey HargrvoeHemoglobin (Bld) [Mass/Vol]12.0 g/vIPvfuxh57.0-16.0[facility] on above:Performed By: #### VITAD, FETIBC, FERR #### [facility] [address] [place] [address] Dr. Andrey Willard #0.02 10e3/ulNormal0.00-0.03The [facility]S HospitalComment on above:Performed By: #### VITAD, FETIBC, FERR #### [facility] [address] [place] [address] Dr. Andrey Willard %0.2 %Normal0.0-0.5The [facility]S HospitalComment on above: Performed By: #### VITAD, FETIBC, FERR #### [facility] [address] [place] [address] Dr. Andrey Jarrett #1.5 103/ulNormal1.2-3.8The [facility]S HospitalComment on above:Performed By: #### VITAD, FETIBC, FERR #### [facility] [address] [place] [address] Dr. Andrey Derashocytes/100 WBC (Bld)18.1 %Critically low20.5-60.0The [facility] HospitalComment on above:Performed By: #### VITAD, FETIBC, FERR #### [facility] [address] [place] [address] Dr. Andrey Ferrell DIFF REQNONormalThe St. Rita'S HospitalComment on above: Performed By: #### VITAD, FETIBC, FERR #### [facility] [address] [place] [address] Dr. Andrey Coker (RBC) [Entitic mass]29.3 exBsslwr05.7-34.0The [facility]S HospitalComment on above:Performed By: #### VITAD, FETIBC, FERR #### [facility] [address] [place] [address] Dr. Andrey Coker (RBC) [Mass/Vol]33.8 g/dYMijlim45.9-35.2The [facility]S HospitalComment on above:Performed By: #### VITAD, FETIBC, FERR #### [facility] [address] [place] [address] Dr. Andrey Coker (RBC) [Entitic vol]86.8 lVIbrlkl68.0-99.0The [facility]S HospitalComment on above:Performed By: #### VITAD, FETIBC, FERR #### [facility] [address] [place] [address] Dr. Andrey Magaña #0.7 103/ulNormal0.3-0.8The [facility]'S HospitalComment on above:Performed By: #### VITAD, FETIBC, FERR #### [facility] [address] [place] [address] Dr. Yilan ChangMonocytes/100 WBC (Bld)7.9 %Normal1.7-12.0The [facility] Comment on above:Performed By: #### VITAD, FETIBC, FERR #### [facility] [address] [place] [address] Dr. Andrey Hay #5.7 103/ulNormal1.4-6.5The [facility]S HospitalComment on above:Performed By: #### VITAD, FETIBC, FERR #### [facility] [address] [place] [address] Dr. Andrey Grajedautrophils/100 WBC (Bld)68.5 %Ldytut34.0-75.0The [facility]S HospitalComment on above:Performed By: #### VITAD, FETIBC, FERR #### [facility] [address] [place] [address] Dr. Andrey Melgozalet mean volume (Bld) [Entitic vol]10.4 fLNormal9.5-13.5The [facility]'S HospitalComment on above:Performed By: #### VITAD, FETIBC, FERR #### [facility] [address] [place] [address] Dr. Andrey HargrovePLT204 103/gfXbdbdh161-208Brg [facility] on above: Performed By: #### VITAD, FETIBC, FERR #### [facility] [address] [place] [address] Dr. Andrey HargroveRBC4.09 106/ulCritically low4.20-5.40The [facility] HospitalComment on above:Performed By: #### VITAD, FETIBC, FERR #### [facility] [address] [place] [address] Dr. Andrey HargroveWBC8.3 103/ulNormal4.0-11.0The [facility] on above: Performed By: #### VITAD, FETIBC, FERR #### [facility] [address] [place] [address] Dr. Andrey ChinF CHEM 8 (BAS METB)on 80-70-6275Modha gap [Moles/Vol]11.1 mmol/LNormalThe St. [facility]'S HospitalComment on above:Performed By: #### LIPID, TSH, FT3 #### [facility] [address] [place] [address] Dr. Andrey HargroveCalcium [Mass/Vol]9.2 mg/dLNormal8.5-10.1[facility] Comment on above:Performed By: #### LIPID, TSH, FT3 #### [facility] [address] [place] [address] Dr. Andrey HargroveChloride [Moles/Vol]102 mmol/TKgmwyh86-801Oic [facility] Comment on above:Performed By: #### LIPID, TSH, FT3 #### [facility] [address] [place] [address] Dr. Andrey HragroveCO2 [Moles/Vol]31.2 mmol/UAnwcml11.0-32.0The [facility] Comment on above:Performed By: #### LIPID, TSH, FT3 #### [facility] [address] [place] [address] Dr. Andrey HargroveCreatinine [Mass/Vol]1.79 mg/dLCritically high0.55-1.02The [facility] HospitalComment on above:Performed By: #### LIPID, TSH, FT3 #### [facility] [address] [place] [address] Dr. Balderas ChangEGFR-AF UPBSVLCK71 mL/min/1.99b1Sftgruamgk low>=60The [facility]S HospitalComment on above:Performed By: #### LIPID, TSH, FT3 #### [facility] [address] [place] [address] Dr. Balderas ChangEGFR-NON AF XPBUFCKT12 mL/min/1.11a8Mhzrutebfj low>=60The [facility] HospitalComment on above:Performed By: #### LIPID, TSH, FT3 #### [facility] [address] [place] [address] Dr. Andrey HargroveGlucose [Mass/Vol]148 mg/dLCritically gchr28-306Imi St. [facility]'S HospitalComment on above:Performed By: #### LIPID, TSH, FT3 #### [facility] [address] [address] [address] Andrey HargrovePotassium [Moles/Vol]3.3 mmol/LCritically low3.5-5.1The [facility] HospitalComment on above:Performed By: #### LIPID, TSH, FT3 #### [facility] [address] [address] [address] Andrey HargroveSodium [Moles/Vol]141 mmol/EOxwhar025-402Zdd [facility] Comment on above:Performed By: #### LIPID, TSH, FT3 #### [facility] [address] [address] [address] Andrey HargroveUrea nitrogen [Mass/Vol]41.0 mg/dLCritically high7.0-18.0The [facility] HospitalComment on above:Performed By: #### LIPID, TSH, FT3 #### [facility] [address] [place] [address] Dr. Andrey Mccarty nitrogen/Creatinine [Mass ratio]22.9 mg/mgNormalThe St. [facility]'S HospitalComment on above:Performed By: #### LIPID, TSH, FT3 #### [facility] [address] [place] [address] Dr. Andrey Miguel INTACTon [id number], Ahioij01 pg/iIBvdfpu48-01Lan St. [facility]'S HospitalComment on above:Performed By: #### VITAD, FETIBC, FERR #### [facility] [address] [place] [address] Dr. Andrey Suazo THYROIDon [id number] THYROIDEXAMINATION: US THYROID HISTORY: Non-toxic multinodular goiter [...] Electronically authenticated by: RENETTA RENEE Date: 2022-08-24 16:16[facility] HospitalFERRITINon [id number] [Mass/Vol]114.0 ng/mLNormal 8.0-252.0[facility] HospitalComment on above:Performed By: #### VITAD, FETIBC, FERR #### [facility] [address] [place] [address] Dr. Andrey HargroveHEMOGRAM AND PLATELon [id number] (Bld) [Volume fraction]34.9 %Critically low36.0-48.0The [facility] HospitalComment on above: Performed By: #### VITAD, FETIBC, FERR #### [facility] [address] [place] [address] Dr. Andrey HargroveHemoglobin (Bld) [Mass/Vol]11.8 g/dLCritically low12.0-16.0The [facility] HospitalComment on above:Performed By: #### VITAD, FETIBC, FERR #### [facility] [address] [place] [address] Dr. Andrey HargroveM[facility] (RBC) [Entitic mass]28.6 cbJkmfqo13.7-34.0The [facility] HospitalComment on above:Performed By: #### VITAD, FETIBC, FERR #### [facility] [address] [place] [address] Dr. Andrey HargroveAMSTERDAM [facility] (RBC) [Mass/Vol]33.8 g/vVUklklf51.9-35.2The [facility] HospitalComment on above:Performed By: #### VITAD, FETIBC, FERR #### [facility] [address] [place] [address] Dr. Andrey Chua (RBC) [Entitic vol]84.7 sVOmfiqf66.0-99.0The [facility] HospitalComment on above:Performed By: #### VITAD, FETIBC, FERR #### [facility] [address] [place] [address] Dr. Andrey HargrovePLT215 103/njWaxbkc255-117Qyc St[facility]'S HospitalComment on above: Performed By: #### VITAD, FETIBC, FERR #### [facility] [address] [place] [address] Dr. Andrey HargroveRBC4.12 106/ulCritically low4.20-5.40The [facility]S HospitalComment on above:Performed By: #### VITAD, FETIBC, FERR #### [facility] [address] [place] [address] Dr. Andrey HargroveWBC9.2 103/ulNormal4.0-11.0The [facility] HospitalComment on above: Performed By: #### VITAD, FETIBC, FERR #### [facility] [address] [place] [address] Dr. Andrey Mason AND Mraine 08-23-2022% ODXDNXJPLQ52.4 %NormalThe St. [facility]'S HospitalComment on above:Performed By: #### VITAD, FETIBC, FERR #### [facility] [address] [place] [address] Dr. Andrey Mason [Mass/Vol]44.0 ug/dLCritically low50.0-170.0The [facility] HospitalComment on above:Performed By: #### VITAD, FETIBC, FERR #### [facility] [address] [place] [address] Dr. Andrey Zhou GSIFWA792.0 ug/yOMpfjcg583.0-450.0The [facility] Comment on above:Performed By: #### VITAD, FETIBC, FERR #### [facility] [address] [address] [address] Andrey HargroveMAGNESIUMon 91-15-4488Galwhksds [Mass/Vol]2.1 mg/dLNormal1.8-2.[address] [facility] HospitalComment on above:Performed By: #### LIPID, TSH, FT3 #### [facility] [address] [address] [address] Andrey HargroveRENAL FUNCTION PANELon [id number] [Mass/Vol]3.3 g/dL Critically low3.4-5.0The [facility] HospitalComment on above:Performed By: #### LIPID, TSH, FT3 #### [facility] [address] [place] [address] Dr. Andrey HargroveCalcium [Mass/Vol]9.4 mg/dLNormal8.5-10.1[facility] Comment on above:Performed By: #### LIPID, TSH, FT3 #### [facility] [address] [address] [address] Andrey HargroveChloride [Moles/Vol]103 mmol/RXacupd94-060DxpBlanchard Valley [facility] System [facility] Comment on above:Performed By: #### LIPID, TSH, FT3 #### [facility] [address] [address] [address] Andrey HargroveCO2 [Moles/Vol]26.8 mmol/WVjflfq98.0-32.0The [facility] Comment on above:Performed By: #### LIPID, TSH, FT3 #### [facility] [address] [address] [address] Andrey HargroveCreatinine [Mass/Vol]1.94 mg/dLCritically high0.55-1.02[facility] HospitalComment on above:Performed By: #### LIPID, TSH, FT3 #### [facility] [address] [address] [address] Balderas ChangEGFR-AF UEAXCORP74 mL/min/1.59a4Efztafryot low>=60The [facility] HospitalComment on above:Performed By: #### LIPID, TSH, FT3 #### [facility] [address] [address] [address] Andrey WilkinsonGFR-NON AF BTIHVKON90 mL/min/1.40t3Ffdfufmjaq low>=60The [facility] HospitalComment on above:Performed By: #### LIPID, TSH, FT3 #### [facility] [address] [place] [address] Dr. Andrey HargroveGlucose [Mass/Vol]166 mg/dLCritically xgyc77-120Qxh St. [facility]'S HospitalComment on above:Performed By: #### LIPID, TSH, FT3 #### [facility] [address] [place] [address] Dr. Andrey HargrovePhosphate [Mass/Vol]4.6 mg/dLNormal2.6-4.7The [facility] Comment on above:Performed By: #### LIPID, TSH, FT3 #### [facility] [address] [place] [address] Dr. Andrey HargrovePotassium [Moles/Vol]4.3 mmol/LNormal3.5-5.1[facility] Comment on above:Performed By: #### LIPID, TSH, FT3 #### [facility] [address] [place] [address] Dr. Andrey HargroveSodium [Moles/Vol]137 mmol/DFffpde893-930JtgBlanchard Valley Health System [facility] Comment on above:Performed By: #### LIPID, TSH, FT3 #### [facility] [address] [place] [address] Dr. Andrey HargroveUrea nitrogen [Mass/Vol]39.0 mg/dLCritically high7.0-18.0The [facility] HospitalComment on above:Performed By: #### LIPID, TSH, FT3 #### [facility] [address] [place] [address] Dr. Andrey Link RANDOM W/MICROSCOPICon 25-75-9256JEFBNHQTVIJN SEENNormalNONE SEENThe St. [facility]'S HospitalComment on above:Performed By: #### VITAD, FETIBC, FERR #### [facility] [address] [address] [address] Andrey HargroveBilirubin Ql (U)NegativeNormalNEGATIVEBlanchard Valley [facility] Comment on above:Performed By: #### VITAD, FETIBC, FERR #### [facility] [address] [address] [address] Andrey HargroveCASTNONE SEENNormalNONE SEENBlanchard Valley Health System [facility] HospitalComhenry ford cottage hospital on above:Performed By: #### VITAD, FETIBC, FERR #### [facility] [address] [address] [address] Andrey HargroveClarity (U)CLEARNormalCLEARBlanchard Valley Health System Bl[facility] HospitalComment on above: Performed By: #### VITAD, FETIBC, FERR #### [facility] [address] [address] [address] Andrey HargroveColor (U)LT. YELLOWNormalYELLOWBlanchard Valley Health System Bluff[facility] HospitalComment on above:Performed By: #### VITAD, FETIBC, FERR #### [facility] [address] [address] [address] Andrey HargroveCrystals LM Nom (Urine sed)NONE SEENNormalNONE SEENBlanchard Valley Health System Bluff[facility] HospitalComment on above:Performed By: #### VITAD, FETIBC, FERR #### [facility] [address] [place] [address] Dr. Balderas ChangEpithelial cells LM Ql (Urine sed)RARENormalNONE SEEN /RAREBlanchard Valley Health System Bl[facility] HospitalComhenry ford cottage hospital on above:Performed By: #### VITAD, FETIBC, FERR #### [facility] [address] [address] [address] Andrey HargroveGlucose Ql (U)NegativeNormalNEGATIVEBlanchard Valley [facility] System [facility] HospitalComment on above:Performed By: #### VITAD, FETIBC, FERR #### [facility] [address] [address] [address] Andrey HargroveHemoglobin Ql (U)NegativeNormalNEGATIVEBlanchard Valley [facility] Comment on above:Performed By: #### VITAD, FETIBC, FERR #### [facility] [address] [address] [address] nAdrey Snyder Ql (U)NegativeNormalNEGATIVEThe St. [facility]'S HospitalComment on above:Performed By: #### VITAD, FETIBC, FERR #### [facility] [address] [address] [address] Andrey HargroveLEUKOCYTESNegativeNormalNEGATIVEThe St. [facility]'S HospitalComment on above:Performed By: #### VITAD, FETIBC, FERR #### [facility] [address] [address] [address] Andrey PerdomoCOUSOTILIA SEENNormalNONE SEENThe St. [facility]'S HospitalComment on above:Performed By: #### VITAD, FETIBC, FERR #### [facility] [address] [place] [address] Dr. Andrey Bernal Ql (U)NegativeNormalNEGATIVEThe St. [facility]'S HospitalComment on above:Performed By: #### VITAD, FETIBC, FERR #### [facility] [address] [place] [address] Dr. Andrey HargrovepH (U)6.5 [pH]Normal5-9The [facility]S HospitalComment on above: Performed By: #### VITAD, FETIBC, FERR #### [facility] [address] [place] [address] Dr. Andrey HargroveRBCNBUBBA SEENAbnormal0-2The [facility] HospitalComment on above: Performed By: #### VITAD, FETIBC, FERR #### [facility] [address] [address] [address] Andrey HargroveSPEC GRAVITY1.247Jslpix4.005-<=1.025The [facility]S HospitalComment on above:Performed By: #### VITAD, FETIBC, FERR #### [facility] [address] [address] [address] Andrey HargroveUA XQURLMK43 mg/dlAbnormalNEGATIVE/ TRACEThe St[facility] Comment on above:Performed By: #### VITAD, FETIBC, FERR #### [facility] [address] [place] [address] Dr. Andrey Maldonado Qn (U)0.2 {Kelly'U}/dLNormal0.2 - 1.0[facility] HospitalComment on above:Performed By: #### VITAD, FETIBC, FERR #### [facility] [address] [place] [address] Dr. Andrey DumasNONKaterin SEENNormalNONE SEENBlanchard Valley Health System [facility] HospitalComment on above: Performed By: #### VITAD, FETIBC, FERR #### [facility] [address] [place] [address] Dr. Andrey HargroveURIC ACID SERUMon [id number] [Mass/Vol]5.8 mg/dLNormal 2.6-6.0[facility] HospitalComment on above:Performed By: #### LIPID, TSH, FT3 #### [facility] [address] [place] [address] Dr. Andrey HargroveVITAMIN D 25 OHon [id number] D 25-OH69.0 ng/mLNormalThe St. [facility]'S HospitalComment on above:Performed By: #### VITAD, FETIBC, FERR #### [facility] [address] [place] [address] Dr. Andrey Blake RANGESSEE Wayne HospitalComment on above: Result Comment: <20 ng/mL Vit D deficient 20 - <30 ng/mL Vit D insufficient 30 - 100 ng/mL Vit D sufficient >100 ng/mL Potential ToxicityPerformed By: #### VITAD, FETIBC, FERR #### [facility] [address] [place] [address] Dr. Andrey Rueda M/2D COMPLETEon [id number] M/2D COMPLETE Patient: CLAUDIA ESTRELLA Exam Date: 06/13/2022 : 1950 Gender:F Ordering : DR KARTHIK FISH M.D. Admission #: [id number] Family : Order #: [id number] CLICK HERE TO VIEW EXAM ECHOCARDIOGRAM REPORT [...] by: Karthik Fish M.D. on 06/14/2022 at 17:50[facility] HospitalBNPon [id number] peptide B (Bld) [Mass/Vol]4197.0 pg/mL Critically high<=900.0The [facility] HospitalComment on above:Performed By: #### LIPID, TSH, FT3 #### [facility] [address] [place] [address] Dr. Andrey Kimble CHEM 8 (BAS METB)on [id number] gap [Moles/Vol]10.4 mmol/LNormalThe St. [facility]'S HospitalComment on above:Performed By: #### VITAD, FETIBC, FERR #### [facility] [address] [place] [address] Dr. Andrey HargroveCalcium [Mass/Vol]9.4 mg/dLNormal8.5-10.1The [facility] Comment on above:Performed By: #### VITAD, FETIBC, FERR #### [facility] [address] [place] [address] Dr. Andrey HargroveChloride [Moles/Vol]99 mmol/CKuzmjl62-743Ooy [facility] Comment on above:Performed By: #### VITAD, FETIBC, FERR #### [facility] [address] [place] [address] Dr. Andrey HargroveCO2 [Moles/Vol]33.8 mmol/LCritically high21.0-32.0The [facility] HospitalComment on above:Performed By: #### VITAD, FETIBC, FERR #### [facility] [address] [place] [address] Dr. Andrey HargroveCreatinine [Mass/Vol]2.09 mg/dLCritically high0.55-1.02The [facility] HospitalComment on above:Performed By: #### VITAD, FETIBC, FERR #### [facility] [address] [place] [address] Dr. Andrey WilkinsonGFR-AF EROSIPAF85 mL/min/1.60n5Ycpgqajyuy low>=60The [facility] HospitalComment on above:Performed By: #### VITAD, FETIBC, FERR #### [facility] [address] [place] [address] Dr. Andrey WilkinsonGFR-NON AF SSCDOUNN85 mL/min/1.66j5Svvydiczsr low>=60The [facility] HospitalComment on above:Performed By: #### VITAD, FETIBC, FERR #### [facility] [address] [place] [address] Dr. Andrey HargroveGlucose [Mass/Vol]75 mg/nLUaldvd59-754CaiBlanchard Valley [facility] System [facility] Comment on above:Performed By: #### VITAD, FETIBC, FERR #### [facility] [address] [address] [address] Andrey HargrovePotassium [Moles/Vol]3.2 mmol/LCritically low3.5-5.1The [facility] HospitalComment on above:Performed By: #### VITAD, FETIBC, FERR #### [facility] [address] [address] [address] Andrey HargroveSodium [Moles/Vol]140 mmol/IKmyego416-678Szl [facility] Comment on above:Performed By: #### VITAD, FETIBC, FERR #### [facility] [address] [place] [address] Dr. Andrey HargroveUrea nitrogen [Mass/Vol]61.0 mg/dLCritically high7.0-18.0The [facility] HospitalComment on above:Performed By: #### VITAD, FETIBC, FERR #### [facility] [address] [place] [address] Dr. Andrey Mccarty nitrogen/Creatinine [Mass ratio]29.2 mg/mgNormalThe St. [facility]'S HospitalComment on above:Performed By: #### VITAD, FETIBC, FERR #### [facility] [address] [place] [address] Dr. Andrey Monge [id number] peptide B (Bld) [Mass/Vol]9365.0 pg/mLCritically high<=900.0The [facility] HospitalComment on above:Performed By: #### VITAD, FETIBC, FERR #### [facility] [address] [place] [address] Dr. Andrey Kimble CHEM 8 (BAS METB)on 25-92-8720Tnmbh gap [Moles/Vol]10.7 mmol/LNormalThe St. [facility]S HospitalComment on above:Performed By: #### VITAD, FETIBC, FERR #### [facility] [address] [place] [address] Dr. Andrey HargroveCalcium [Mass/Vol]9.1 mg/dLNormal8.5-10.1The [facility] Comment on above:Performed By: #### VITAD, FETIBC, FERR #### [facility] [address] [place] [address] Dr. Andrey HargroveChloride [Moles/Vol]98 mmol/PCltoib28-601AfeBlanchard Valley [facility] Comment on above:Performed By: #### VITAD, FETIBC, FERR #### [facility] [address] [place] [address] Dr. Andrey HargroveCO2 [Moles/Vol]29.4 mmol/NLkwhrs52.0-32.0[facility] Comment on above:Performed By: #### VITAD, FETIBC, FERR #### [facility] [address] [place] [address] Dr. Andrey HargroveCreatinine [Mass/Vol]2.44 mg/dLCritically high0.55-1.02The [facility] HospitalComment on above:Performed By: #### VITAD, FETIBC, FERR #### [facility] [address] [place] [address] Dr. Andrey WilkinsonGFR-AF [id number] mL/min/1.45v9Sxijecvoof low>=60The St[facility] HospitalComment on above:Performed By: #### VITAD, FETIBC, FERR #### [facility] [address] [place] [address] Dr. Andrey WilkinsonGFR-NON AF [id number] mL/min/1.32i0Asfrpnxzhe low>=60The St[facility] HospitalComment on above:Performed By: #### VITAD, FETIBC, FERR #### [facility] [address] [place] [address] Dr. Andrey HargroveGlucose [Mass/Vol]135 mg/dLCritically srmb67-215Evd St[facility]'S HospitalComment on above:Performed By: #### VITAD, FETIBC, FERR #### [facility] Laboratory [address] [place] [address] Dr. Andrey HargrovePotassium [Moles/Vol]4.1 mmol/LNormal3.5-5.1[facility] Comment on above:Performed By: #### VITAD, FETIBC, FERR #### [facility] [address] [address] [address] Andrey HargroveSodium [Moles/Vol]134 mmol/LCritically uff310-956Idu St[facility] HospitalComment on above:Performed By: #### VITAD, FETIBC, FERR #### [facility] [address] [address] [address] Andrey HargroveUrea nitrogen [Mass/Vol]81.0 mg/dLCritically high7.0-18.0The [facility] HospitalComment on above:Performed By: #### VITAD, FETIBC, FERR #### [facility] [address] [address] [address] Andrey Mccarty nitrogen/Creatinine [Mass ratio]33.2 mg/mgNoRiverside Methodist HospitalComment on above:Performed By: #### VITAD, FETIBC, FERR #### [facility] [address] [address] [address] Andrey HargroveXR ELBOW RT MIN 3 VIEWSon [id number] ELBOW RT MIN 3 VIEWSEXAM: XR ELBOW [...] Electronically authenticated by: BETSY LAZARO Date: 2022-06-01 17:24NoRiverside Methodist HospitalRENAL FUNCTION PANELon 67-11-1980Bukvulz [Mass/Vol]3.4 g/dL Normal3.4-5.0The [facility]S HospitalComment on above:Performed By: #### LIPID, TSH, FT3 #### [facility] [address] [address] [address] Andrey HargroveCalcium [Mass/Vol]9.1 mg/dLNormal8.5-10.1[facility] Comment on above:Performed By: #### LIPID, TSH, FT3 #### [facility] [address] [address] [address] Andrey HargroveChloride [Moles/Vol]99 mmol/CGtxhgb57-160AwnBlanchard Valley [facility] Comment on above:Performed By: #### LIPID, TSH, FT3 #### [facility] [address] [place] [address] Dr. Andrey HargroveCO2 [Moles/Vol]30.9 mmol/UVjiuun70.0-32.0The [facility] Comment on above:Performed By: #### LIPID, TSH, FT3 #### [facility] [address] [place] [address] Dr. Andrey HargroveCreatinine [Mass/Vol]2.24 mg/dLCritically high0.55-1.02The [facility] HospitalComment on above:Performed By: #### LIPID, TSH, FT3 #### [facility] [address] [place] [address] Dr. Andrey WilkinsonGFR-AF ZULOEYNM08 mL/min/1.04v5Mkvwgqrspy low>=60The St[facility]S HospitalComment on above:Performed By: #### LIPID, TSH, FT3 #### [facility] [address] [place] [address] Dr. Andrey WilkinsonGFR-NON AF PELMWUQO34 mL/min/1.66n9Aqrygfvrcj low>=60The [facility] HospitalComment on above:Performed By: #### LIPID, TSH, FT3 #### [facility] [address] [address] [address] Andrey HargroveGlucose [Mass/Vol]94 mg/bKVlcqcb24-451YdmBlanchard Valley [facility] Comment on above:Performed By: #### LIPID, TSH, FT3 #### [facility] [address] [place] [address] Dr. Andrey HargrovePhosphate [Mass/Vol]4.7 mg/dLNormal2.6-4.7The [facility] Comment on above:Performed By: #### LIPID, TSH, FT3 #### [facility] [address] [place] [address] Dr. Andrey HargrovePotassium [Moles/Vol]3.5 mmol/LNormal3.5-5.1[facility] Comment on above:Performed By: #### LIPID, TSH, FT3 #### [facility] [address] [place] [address] Dr. Andrey HargroveSodium [Moles/Vol]136 mmol/ASbonca104-179QlkBlanchard Valley Health System [facility] Comment on above:Performed By: #### LIPID, TSH, FT3 #### [facility] [address] [place] [address] Dr. Andrey HargroveUrea nitrogen [Mass/Vol]72.0 mg/dLCritically high7.0-18.0The [facility]S HospitalComment on above:Performed By: #### LIPID, TSH, FT3 #### [facility] [address] [place] [address] Dr. Andrey PettitH INTACTon 71-93-1150BPY, Brtkel62 pg/pNQrefts59-82Pjl St. [facility]S HospitalComment on above:Performed By: #### LIPID, TSH, FT3 #### [facility] [address] [place] [address] Dr. Andrey HargroveFERRITINon [id number] [Mass/Vol]190.0 ng/mLNormal 8.0-252.0[facility] HospitalComment on above:Performed By: #### LIPID, TSH, FT3 #### [facility] [address] [place] [address] Dr. Andrey FitzgeraldEE T3on 10-55-2073XICC T31.96 pg/mlLCritically low2.18-3.98The [facility]S HospitalComment on above:Performed By: #### LIPID, TSH, FT3 #### [facility] [address] [place] [address] Dr. Andrey Joaquin T4on 22-45-2285Wcfe T4 [Mass/Vol]1.33 ng/dLNormal0.76-1.[address] [facility] HospitalComment on above:Performed By: #### LIPID, TSH, FT3 #### [facility] [address] [place] [address] Dr. Andrey HargroveHEMOGRAM AND PLATELon 47-12-3958Erxanfltgd (Bld) [Volume fraction]30.6 %Critically low36.0-48.0The [facility]S HospitalComment on above: Performed By: #### VITAD, FETIBC, FERR #### [facility] [address] [place] [address] Dr. Andrey HargroveHemoglobin (Bld) [Mass/Vol]10.4 g/dLCritically low12.0-16.0The [facility]S HospitalComment on above:Performed By: #### VITAD, FETIBC, FERR #### [facility] [address] [place] [address] Dr. Andrey Coker (RBC) [Entitic mass]28.6 ahMxqlpk70.7-34.0The [facility]S HospitalComment on above:Performed By: #### VITAD, FETIBC, FERR #### [facility] [address] [place] [address] Dr. Andrey Coker (RBC) [Mass/Vol]34.0 g/mVOtfgtt42.9-35.2The [facility] on above:Performed By: #### VITAD, FETIBC, FERR #### [facility] [address] [place] [address] Dr. Andrey Coker (RBC) [Entitic vol]84.1 mEBodnip63.0-99.0The [facility]S HospitalComment on above:Performed By: #### VITAD, FETIBC, FERR #### [facility] [address] [place] [address] Dr. Andrey HargrovePLT179 103/inEkdbnw949-124Xon St. [facility]'S HospitalComment on above: Performed By: #### VITAD, FETIBC, FERR #### [facility] [address] [place] [address] Dr. Andrey HargroveRBC3.64 106/ulCritically low4.20-5.40The [facility]S HospitalComment on above:Performed By: #### VITAD, FETIBC, FERR #### [facility] [address] [place] [address] Dr. Andrey HargroveWBC9.5 103/ulNormal4.0-11.0The [facility]S HospitalComment on above: Performed By: #### VITAD, FETIBC, FERR #### [facility] [address] [place] [address] Dr. Andrey Mason AND TIBAtrium Health [facility] 05-23-2022% VZARYKNMKC24.9 %[address]The [address] [facility]S HospitalComhenry ford cottage hospital on above:Performed By: #### LIPID, TSH, FT3 #### [facility] [address] [place] [address] Dr. Andrey Mason [Mass/Vol]44.0 ug/dLCritically low50.0-170.0[facility] HospitalComment on above:Performed By: #### LIPID, TSH, FT3 #### [facility] [address] [place] [address] Dr. Andrey Zhou FSGCXL321.0 ug/dLObjktg193.0-450.0[facility] Comment on above:Performed By: #### LIPID, TSH, FT3 #### [facility] [address] [place] [address] Dr. Andrey RomoID PROFILEon 16-89-5084UPSA-HDL RATIO [facility] HospitalComhenry [facility] on above:Result Comment: 3.3 - 4.4 LOW RISK 4.4 - 7.1 AVERAGE RISK 7.1 - 11.0 MODERATE RISK >11.0 HIGH RISKPerformed By: #### LIPID, TSH, FT3 #### [facility] [address] [place], [place] [id number] Dr. Andrey HargroveCholesterol [Mass/Vol]129 mg/dLNormal<=200[facility] Comment on above:Performed By: #### LIPID, TSH, FT3 #### [facility] [address] [address] [address] Andrey HargroveCholesterol in HDL [Mass/Vol]55 mg/aKJatuco57-79Mvy St[facility]S HospitalComment on above:Performed By: #### LIPID, TSH, FT3 #### [facility] [address] [address] [address] Andrey HargroveCholesterol in LDL [Mass/Vol]59.6 mg/dLLima Memorial HospitalComment on above:Performed By: #### LIPID, TSH, FT3 #### [facility] [address] [place] [address] Dr. Andrey Anguloesterlisbeth.total/Cholesterol in HDL [Mass ratio]2.3 {ratio} NormalThe St. [facility]'S HospitalComment on above:Performed By: #### LIPID, TSH, FT3 #### [facility] [address] [place] [address] Dr. Andrey Hughes NORMAL> or = 60 mg/dl - LOW CARDIOVASCULAR RISK <40 mg/dl - HIGH CARDIOVASCULAR RISKLima Memorial HospitalComment on above:Performed By: #### LIPID, TSH, FT3 #### [facility] [address] [place] [address] Dr. Andrey HargroveLDL CALC NORMALSEE BELOWNoRiverside Methodist HospitalComment on above:Result Comment: <100 mg/dl OPTIMAL 100 - 129 mg/dl NEAR OR ABOVE OPTIMAL 130 - 159 mg/dl BORDERLINE HIGH 160 - 189 mg/dl HIGH >190 mg/dl VERY HIGH Performed By: #### LIPID, TSH, FT3 #### [facility] [address] [place] [address] Dr. Andrey HargroveTriglyceride [Mass/Vol]72 mg/dLNormal<=150The [facility] Comment on above:Performed By: #### LIPID, TSH, FT3 #### [facility] [address] [place] [address] Dr. Andrey HargroveVLDL CALC14.4 mg/dLNormalThe St. [facility]S HospitalComment on above: Performed By: #### LIPID, TSH, FT3 #### [facility] [address] [place] [address] Dr. Andrey HargroveMAGNESIUMon 28-56-2737Ubfkraodi [Mass/Vol]2.2 mg/dLNormal1.8-2.[address] [facility] HospitalComment on above:Performed By: #### LIPID, TSH, FT3 #### [facility] [address] [place] [address] Dr. Andrey HargroveRENAL FUNCTION PANELon 86-39-5655Cmngtjp [Mass/Vol]3.5 g/dLNormal 3.4-5.0The [facility] HospitalComment on above:Performed By: #### LIPID, TSH, FT3 #### [facility] [address] [place] [address] Dr. Andrey HargroveCalcium [Mass/Vol]10.0 mg/dLNormal8.5-10.1The [facility] Comment on above:Performed By: #### LIPID, TSH, FT3 #### [facility] [address] [place] [address] Dr. Andrey HargroveChloride [Moles/Vol]98 mmol/COnrybp50-577ZpyBlanchard [facility] Comment on above:Performed By: #### LIPID, TSH, FT3 #### [facility] [address] [place] [address] Dr. Andrey HargroveCO2 [Moles/Vol]34.3 mmol/LCritically high21.0-32.0The [facility] HospitalComment on above:Performed By: #### LIPID, TSH, FT3 #### [facility] [address] [place] [address] Dr. Andrey HargroveCreatinine [Mass/Vol]2.24 mg/dLCritically high0.55-1.02The [facility] HospitalComment on above:Performed By: #### LIPID, TSH, FT3 #### [facility] [address] [address] [address] Andrey WilkinsonGFR-AF XPIKHLGT80 mL/min/1.24e4Lgbvkqykdn low>=60The [facility] HospitalComment on above:Performed By: #### LIPID, TSH, FT3 #### [facility] [address] [address] [address] Andrey WilkinsonGFR-NON AF HPIOJJXI19 mL/min/1.30s9Ypakptmtnr low>=60The [facility] HospitalComment on above:Performed By: #### LIPID, TSH, FT3 #### [facility] [address] [address] [address] Andrey aHrgroveGlucose [Mass/Vol]123 mg/dLCritically zekp71-714Aia St[facility] HospitalComment on above:Performed By: #### LIPID, TSH, FT3 #### [facility] [address] [place] [address] Dr. Adnrey HargrovePhosphate [Mass/Vol]5.2 mg/dLCritically high2.6-4.7The [facility] HospitalComment on above:Performed By: #### LIPID, TSH, FT3 #### [facility] [address] [address] [address] Andrey HargrovePotassium [Moles/Vol]3.0 mmol/LCritically low3.5-5.1The [facility] HospitalComment on above:Performed By: #### LIPID, TSH, FT3 #### [facility] [address] [address] [address] Andrey HargroveSodium [Moles/Vol]137 mmol/KWjtavn110-703Cir [facility] Comment on above:Performed By: #### LIPID, TSH, FT3 #### [facility] [address] [address] [address] Andrey HargroveUrea nitrogen [Mass/Vol]80.0 mg/dLCritically high7.0-18.0The [facility] HospitalComment on above:Performed By: #### LIPID, TSH, FT3 #### [facility] [address] [place] [address] Dr. Andrey Hernandez 17-51-3573HXL0.652 uIU/mLCritically high0.358-3.740The [facility] HospitalComment on above:Performed By: #### LIPID, TSH, FT3 #### [facility] [address] [address] [address] Andrey Link RANDOM W/MICROSCOPICon 33-27-9971UNHTRBRJFKEA SEENNormalNONE SEENBlanchard Valley [facility] System [facility] HospitalComment on above:Performed By: #### VITAD, FETIBC, FERR #### [facility] [address] [place] [address] Dr. Andrey Godfrey Ql (U)NegativeNormalNEGATIVEThe [facility] Comment on above:Performed By: #### VITAD, FETIBC, FERR #### [facility] [address] [place] [address] Dr. Anrdey Rodriguez SEENNormalNONE SEENOhioHealth Pickerington Methodist [facility] on above:Performed By: #### VITAD, FETIBC, FERR #### [facility] [address] [address] [address] Andrey Lau (U)CLEARNormalCLEARThe St[facility]S HospitalComhenry for[facility] on above: Performed By: #### VITAD, FETIBC, FERR #### [facility] [address] [address] [address] Andrey Cervantes (U)LT. YELLOWNormalYELLOWThe St. [facility]'S HospitalComment on above:Performed By: #### VITAD, FETIBC, FERR #### [facility] [address] [address] [address] Andrey Mckenzie LM Nom (Urine sed)NONE SEENNormalNONE SEENBlanchard Valley [facility] HospitalComhenry [facility] on above:Performed By: #### VITAD, FETIBC, FERR #### [facility] [address] [address] [address] Balderas ChangEpithelial cells LM Ql (Urine sed)FEWAbnormalNONE SEEN /RAREThe St. [facility]S HospitalComment on above:Performed By: #### VITAD, FETIBC, FERR #### [facility] [address] [address] [address] Andrey HargroveGlucose Ql (U)NegativeNormalNEGATIVEBlanchard [facility] HospitalComment on above:Performed By: #### VITAD, FETIBC, FERR #### [facility] [address] [address] [address] Andrey HargroveHemoglobin Ql (U)TRACE-INTACTAbnormalNEGATIVEBlanchard [facility] HospitalComment on above:Performed By: #### VITAD, FETIBC, FERR #### [facility] [address] [address] [address] Andrey HargroveKetones Ql (U)NegativeNormalNEGATIVEBlanchard [facility] HospitalComment on above:Performed By: #### VITAD, FETIBC, FERR #### [facility] [address] [place] [address] Dr. Andrey HargroveLEUKOCYTESSMALLAbnormalNEGATIVEThe St. [facility]S HospitalComment on above:Performed By: #### VITAD, FETIBC, FERR #### [facility] [address] [address] [address] Andrey HargroveMUCOUSNONE SEENNormalNONE SEENBlanchard Valley [facility] HospitalComhenry [facility] on above:Performed By: #### VITAD, FETIBC, FERR #### [facility] [address] [address] [address] Andrey HargroveNitrite Ql (U)NegativeNormalNEGATIVEThe St. [facility]S HospitalComment on above:Performed By: #### VITAD, FETIBC, FERR #### [facility] [address] [address] [address] Andrey HargrovepH (U)5.5 [pH]Normal5-9The [facility] HospitalComhenry for[facility] on above: Performed By: #### VITAD, FETIBC, FERR #### [facility] [address] [address] [address] Andrey HargroveIklhhIFE2-5Ofvtss9-4Xtw St[facility] HospitalComment on above:Performed By: #### VITAD, FETIBC, FERR #### [facility] [address] [place] [address] Dr. Andrey HargroveSPEC GRAVITY1.316Tfpamu2.005-<=1.025The St[facility]S HospitalComment on above:Performed By: #### VITAD, FETIBC, FERR #### [facility] [address] [place] [address] Dr. Andrey Link PROTEINTRACENormalNEGATIVE/ TRACEThe St. [facility]'S HospitalComment on above:Performed By: #### VITAD, FETIBC, FERR #### [facility] [address] [place] [address] Dr. Andrey Mercadobilnieves Qn (U)0.2 {Kelly'U}/dLNormal0.2 - 1.0The [facility]S HospitalComment on above:Performed By: #### VITAD, FETIBC, FERR #### [facility] [address] [place] [address] Dr. Andrey HargroveWBC0-2Abnormal[address] [facility]'S HospitalComment on above: Performed By: #### VITAD, FETIBC, FERR #### [facility] [address] [place] [address] Dr. Andrey HargroveURIC ACID SERUMon 78-80-7135Qzckr [Mass/Vol]7.4 mg/dLCritically high2.6-6.0The [facility] on above:Performed By: #### LIPID, TSH, FT3 #### [facility] [address] [place] [address] Dr. Andrey Sanchez T PROTEIN CREAT RATIOon 16-19-4396Pcjukeg (U) [Mass/Vol] 39.9 mg/dLCritically high<=12.0The [facility] on above:Performed By: #### URTPCR #### [facility] [address] [place] [address] Dr. Andrey Fox PROT CREAT RAT0.64NormalThe St. [facility]'S HospitalComment on above: Performed By: #### URTPCR #### [facility] [address] [place] [address] Dr. Andrey Sanchez CREAT62.30 mg/uGYcmioq16.00-300.00[facility] Comment on above:Performed By: #### URTPCR #### [facility] [address] [place] [address] Dr. Andrey HargroveVITAMIN D 25 OHon 19-80-3241DSU D 25-OH90.7 ng/mLNormalBlanchard [facility] HospitalComment on above:Performed By: #### LIPID, TSH, FT3 #### [facility] [address] [place] [address] Dr. Andrey Rand D RANGESSEE Wayne HospitalComment on above: Result Comment: <20 ng/mL Vit D deficient 20 - <30 ng/mL Vit D insufficient 30 - 100 ng/mL Vit D sufficient >100 ng/mL Potential ToxicityPerformed By: #### LIPID, TSH, FT3 #### [facility] [address] [place] [address] Dr. Andrey HargroveMAGNESIUMon 40-70-3059Cwjtbktwt [Mass/Vol]2.1 mg/dLNormal1.8-2.4 [facility] HospitalComment on above:Performed By: #### LIPID, TSH, FT3 #### [facility] [address] [place] [address] Dr. Andrey HargrovePROEleanor CHEM 8 (BAS METB)on 20-83-1698Clyei gap [Moles/Vol]12.0 mmol/LNormalBlanchard [facility] HospitalComment on above:Performed By: #### LIPID, TSH, FT3 #### [facility] [address] [place] [address] Dr. Andrey HargroveCalcium [Mass/Vol]9.0 mg/dLNormal8.5-10.1[facility] Comment on above:Performed By: #### LIPID, TSH, FT3 #### [facility] [address] [place] [address] Dr. Andrey HargroveChloride [Moles/Vol]97 mmol/LCritically yic79-275LrbBlanchard Valley [facility] System [facility] HospitalComment on above:Performed By: #### LIPID, TSH, FT3 #### [facility] [address] [place] [address] Dr. Andrey HargroveCO2 [Moles/Vol]30.4 mmol/LOdbztp17.0-32.0The [facility] Comment on above:Performed By: #### LIPID, TSH, FT3 #### [facility] [address] [place] [address] Dr. Andrey HargroveCreatinine [Mass/Vol]2.28 mg/dLCritically high0.55-1.02The [facility] HospitalComment on above:Performed By: #### LIPID, TSH, FT3 #### [facility] [address] [place] [address] Dr. Andrey WilkinsonGFR-AF EACXHCUL61 mL/min/1.11p9Faiixsnxmm low>=60The [facility]S HospitalComment on above:Performed By: #### LIPID, TSH, FT3 #### [facility] [address] [place] [address] Dr. Andrey WilkinsonGFR-NON AF XCJGLOTO78 mL/min/1.28l3Akllutllev low>=60The [facility] HospitalComment on above:Performed By: #### LIPID, TSH, FT3 #### [facility] [address] [place] [address] Dr. Andrey HargroveGlucose [Mass/Vol]190 mg/dLCritically yqig91-955Wme [facility] HospitalComment on above:Performed By: #### LIPID, TSH, FT3 #### [facility] [address] [place] [address] Dr. Andrey HargrovePotassium [Moles/Vol]3.4 mmol/LCritically low3.5-5.1The [facility] HospitalComment on above:Performed By: #### LIPID, TSH, FT3 #### [facility] [address] [place] [address] Dr. Andrey HargroveSodium [Moles/Vol]136 mmol/QCplkpu049-914Ylp [facility] Comment on above:Performed By: #### LIPID, TSH, FT3 #### [facility] [address] [place] [address] Dr. Andrey Mccarty nitrogen [Mass/Vol]73.0 mg/dLCritically high7.0-18.0The [facility] HospitalComment on above:Performed By: #### LIPID, TSH, FT3 #### [facility] [address] [address] [address] Andrey Mccarty nitrogen/Creatinine [Mass ratio]32.0 mg/mgNoRiverside Methodist HospitalComment on above:Performed By: #### LIPID, TSH, FT3 #### [facility] [address] [address] [address] Andrey HargroveXR CHEST 2 Von [id number] CHEST 2 VEXAMINATION: XR CHEST 2 V [...] Electronically authenticated by: RENETTA RENEE Date: 2022-05-12 09:12[facility] HospitalBNPon 12-89-7350Jzqpxjvqmhf peptide B (Bld) [Mass/Vol]7074.0 pg/mLCritically high<=900.0The [facility] HospitalComment on above:Performed By: #### DANIA NICOLAS, FERR #### [facility] [address] [place] [address] Dr. Andrey Jimenez AUTO DIFFon [id number] #0.1 103/ulNormal0.0-0.1The [facility]S HospitalComment on above:Performed By: #### FIDENCIO FETIBC, FERR #### [facility] [address] [address] [address] Andrey HargroveBasophils/100 WBC (Bld)0.7 %Normal0.2-2.0The [facility] Comment on above:Performed By: #### VITAD, FETIBC, FERR #### [facility] [address] [place] [address] Dr. Andrey Copeland #0.3 103/ulNormal0.0-0.7The [facility] HospitalComment on above: Performed By: #### VITAD, FETIBC, FERR #### [facility] [address] [place] [address] Dr. Andrey Wilkinsonosinophils/100 WBC (Bld)3.8 %Normal0.9-7.0The [facility] Comment on above:Performed By: #### VITAD, FETIBC, FERR #### [facility] [address] [place] [address] Dr. Andrey Wilkinsonrythrocyte distribution width (RBC) [Ratio]14.7 %Igfvfg76.0-15.[address] [facility] HospitalComment on above:Performed By: #### VITAD, FETIBC, FERR #### [facility] [address] [place] [address] Dr. Andrey HargroveHematocrit (Bld) [Volume fraction]29.6 %Critically low36.0-48.[address] [facility] HospitalComment on above:Performed By: #### VITAD, FETIBC, FERR #### [facility] [address] [place] [address] Dr. Andrey HargroveHemoglobin (Bld) [Mass/Vol]9.9 g/dLCritically low12.0-16.0The [facility] HospitalComment on above:Performed By: #### VITAD, FETIBC, FERR #### [facility] [address] [place] [address] Dr. Andrey Willard #0.03 10e3/ulNormal0.00-0.03The [facility]S HospitalComment on above:Performed By: #### VITAD, FETIBC, FERR #### [facility] [address] [place] [address] Dr. Andrey Willard %0.4 %Normal0.0-0.5The [facility] HospitalComment on above: Performed By: #### VITAD, FETIBC, FERR #### [facility] [address] [place] [address] Dr. Andrey Jarrett #1.3 103/ulNormal1.2-3.8The [facility] HospitalComment on above:Performed By: #### VITAD, FETIBC, FERR #### [facility] [address] [place] [address] Dr. Andrey Derashocytes/100 WBC (Bld)16.3 %Critically low20.5-60.0The [facility] HospitalComment on above:Performed By: #### VITAD, FETIBC, FERR #### [facility] [address] [place] [address] Dr. Andrey Ferrell DIFF REQNONormalThe St. [facility]'S HospitalComment on above: Performed By: #### VITAD, FETIBC, FERR #### [facility] [address] [place] [address] Dr. Andrey Coker (RBC) [Entitic mass]28.7 mwNbavux86.7-34.0The [facility] HospitalComment on above:Performed By: #### VITAD, FETIBC, FERR #### [facility] [address] [place] [address] Dr. Andrey Coker (RBC) [Mass/Vol]33.4 g/hATxbazr20.9-35.2The [facility]S HospitalComment on above:Performed By: #### VITAD, FETIBC, FERR #### [facility] [address] [place] [address] Dr. Andrey Coker (RBC) [Entitic vol]85.8 qRZkxkyo90.0-99.0The [facility]. Rita'S HospitalComment on above:Performed By: #### VITAD, FETIBC, FERR #### [facility] [address] [place] [address] Dr. Andrey Magaña #0.7 103/ulNormal0.3-0.8The [facility] HospitalComment on above:Performed By: #### VITAD, FETIBC, FERR #### [facility] [address] [place] [address] Dr. Andrey Hamiltonocytes/100 WBC (Bld)8.7 %Normal1.7-12.0The [facility] Comment on above:Performed By: #### VITAD, FETIBC, FERR #### [facility] [address] [place] [address] Dr. Andrey GrajedaUT #5.4 103/ulNormal1.4-6.5The [facility]'S HospitalComment on above:Performed By: #### VITAD, FETIBC, FERR #### [facility] [address] [place] [address] Dr. Andrey Grajedautrophils/100 WBC (Bld)70.1 %Ijmzib27.0-75.0The [facility]'S HospitalComment on above:Performed By: #### VITAD, FETIBC, FERR #### [facility] [address] [place] [address] Dr. Andrey Melgozalet mean volume (Bld) [Entitic vol]10.9 fLNormal9.5-13.5The [facility]'S HospitalComment on above:Performed By: #### VITAD, FETIBC, FERR #### [facility] [address] [place] [address] Dr. Andrey HargrovePLT171 103/smRluitj733-372Tfn [facility] on above: Performed By: #### VITAD, FETIBC, FERR #### [facility] [address] [place] [address] Dr. Andrey HargroveRBC3.45 106/ulCritically low4.20-5.40The [facility] on above:Performed By: #### VITAD, FETIBC, FERR #### [facility] [address] [place] [address] Dr. Andrey HargroveWBC7.7 103/ulNormal4.0-11.0The [facility]'S HospitalComment on above: Performed By: #### VITAD, FETIBC, FERR #### [facility] [address] [place] [address] Dr. Andrey Kimble CHEM 8 (BAS METB)on [id number] gap [Moles/Vol]9.8 mmol/LNormalThe St. [facility]'S HospitalComment on above:Performed By: #### VITAD, FETIBC, FERR #### [facility] [address] [place] [address] Dr. Andrey HargroveCalcium [Mass/Vol]9.1 mg/dLNormal8.5-10.1The [facility] Comment on above:Performed By: #### VITAD, FETIBC, FERR #### [facility] [address] [place] [address] Dr. Andrey HargroveChloride [Moles/Vol]96 mmol/LCritically gmi49-225Ukf St[facility]'S HospitalComment on above:Performed By: #### VITAD, FETIBC, FERR #### [facility] [address] [place] [address] Dr. Andrey HargroveCO2 [Moles/Vol]30.8 mmol/YHiqelo03.0-32.0The [facility] Comment on above:Performed By: #### VITAD, FETIBC, FERR #### [facility] [address] [place] [address] Dr. Andrey HargroveCreatinine [Mass/Vol]2.28 mg/dLCritically high0.55-1.02The [facility]'S HospitalComment on above:Performed By: #### VITAD, FETIBC, FERR #### [facility] [address] [place] [address] Dr. Andrey WilkinsonGFR-AF RLYSZUTQ77 mL/min/1.62o6Ypmfleyqel low>=60The [facility]'S HospitalComment on above:Performed By: #### VITAD, FETIBC, FERR #### [facility] [address] [place] [address] Dr. Andrey WilkinsonGFR-NON AF REARHJOY66 mL/min/1.62x5Vtecblhmsm low>=60The [facility]'S HospitalComment on above:Performed By: #### VITAD, FETIBC, FERR #### [facility] [address] [place] [address] Dr. Andrey HargroveGlucose [Mass/Vol]158 mg/dLCritically enea37-159Eek St[facility]'S HospitalComment on above:Performed By: #### VITAD, FETIBC, FERR #### [facility] [address] [place] [address] Dr. Andrey HargrovePotassium [Moles/Vol]3.6 mmol/LNormal3.5-5.1The [facility] Comment on above:Performed By: #### VITAD, FETIBC, FERR #### [facility] [address] [place] [address] Dr. Andrey HargroveSodium [Moles/Vol]133 mmol/LCritically rod203-250Dns St[facility]'S HospitalComment on above:Performed By: #### VITAD, FETIBC, FERR #### [facility] [address] [place] [address] Dr. Andrey HargroveUrea nitrogen [Mass/Vol]66.0 mg/dLCritically high7.0-18.0The [facility]'S HospitalComment on above:Performed By: #### VITAD, FETIBC, FERR #### [facility] [address] [place] [address] Dr. Andrey Mccarty nitrogen/Creatinine [Mass ratio]28.9 mg/mgNormalThe St. [facility]'S HospitalComment on above:Performed By: #### VITAD, FETIBC, FERR #### [facility] [address] [place] [address] Dr. Andrey HargroveMAGNESIUMon 03-19-0181Whrfwfzfc [Mass/Vol]1.9 mg/dLNormal1.8-2.[address] [facility]S HospitalComment on above:Performed By: #### VITAD, FETIBC, FERR #### [facility] [address] [place] [address] Dr. Andrey HargrovePROF CHEM 8 (BAS METB)on 03-91-8724Syvmn gap [Moles/Vol]11.7 mmol/LNormalThe St. [facility]'S HospitalComment on above:Performed By: #### VITAD, FETIBC, FERR #### [facility] [address] [place] [address] Dr. Andrey HargroveCalcium [Mass/Vol]9.4 mg/dLNormal8.5-10.1The [facility] Comment on above:Performed By: #### VITAD, FETIBC, FERR #### [facility] [address] [place] [address] Dr. Andrey HargroveChloride [Moles/Vol]97 mmol/LCritically bdw39-622Icx St[facility]'S HospitalComment on above:Performed By: #### VITAD, FETIBC, FERR #### [facility] [address] [place] [address] Dr. Andrey HargroveCO2 [Moles/Vol]29.0 mmol/WNzzzzt70.0-32.0The [facility] Comment on above:Performed By: #### VITAD, FETIBC, FERR #### [facility] [address] [place] [address] Dr. Andrey HargroveCreatinine [Mass/Vol]2.02 mg/dLCritically high0.55-1.02The [facility]'S HospitalComment on above:Performed By: #### VITAD, FETIBC, FERR #### [facility] [address] [place] [address] Dr. Balderas ChangEGFR-AF KDAQRKEJ83 mL/min/1.17w4Ygjcllfkmb low>=60The [facility]'S HospitalComment on above:Performed By: #### VITAD, FETIBC, FERR #### [facility] [address] [place] [address] Dr. Andrey WilkinsonGFR-NON AF JUZNRWVR21 mL/min/1.06z0Aizmfqgyqm low>=60The [facility]'S HospitalComment on above:Performed By: #### VITAD, FETIBC, FERR #### [facility] [address] [place] [address] Dr. Andrey HargroveGlucose [Mass/Vol]204 mg/dLCritically zjxj07-608Zfw St[facility]S HospitalComment on above:Performed By: #### VITAD, FETIBC, FERR #### [facility] [address] [address] [address] Andrey HargrovePotassium [Moles/Vol]3.7 mmol/LNormal3.5-5.1The [facility] Comment on above:Performed By: #### VITAD, FETIBC, FERR #### [facility] [address] [place] [address] Dr. Andrey HargroveSodium [Moles/Vol]134 mmol/LCritically mqj280-916Shc St[facility]'S HospitalComment on above:Performed By: #### VITAD, FETIBC, FERR #### [facility] [address] [place] [address] Dr. Andrey HargroveUrea nitrogen [Mass/Vol]60.0 mg/dLCritically high7.0-18.0The [facility]S HospitalComment on above:Performed By: #### VITAD, FETIBC, FERR #### [facility] [address] [place] [address] Dr. Andrey Mccarty nitrogen/Creatinine [Mass ratio]29.7 mg/mgNormalThe St. [facility]'S HospitalComment on above:Performed By: #### VITAD, FETIBC, FERR #### [facility] [address] [place] [address] Dr. Andrey HargrovePTH INTACTon [id number], Dnndzx66 pg/gRYfaafv40-41Flf St[facility]'S HospitalComment on above:Performed By: #### LIPID, TSH, FT3 #### [facility] [address] [place] [address] Dr. Andrey HargroveFERRITINon [id number] [Mass/Vol]133.0 ng/mLNormal 8.0-252.0The [facility]S HospitalComment on above:Performed By: #### VITAD, FETIBC, FERR #### [facility] [address] [place] [address] Dr. Andrey HargroveHEMOGRAM AND PLATELon 78-68-5925Ytmyhjsqcc (Bld) [Volume fraction]31.7 %Critically low36.0-48.0The [facility]'S HospitalComment on above: Performed By: #### VITAD, FETIBC, FERR #### [facility] [address] [place] [address] Dr. Andrey Mckeonoglobin (Bld) [Mass/Vol]10.2 g/dLCritically low12.0-16.0The [facility] on above:Performed By: #### VITAD, FETIBC, FERR #### [facility] [address] [place] [address] Dr. Andrey Coker (RBC) [Entitic mass]28.3 jxNbfvya48.7-34.0The [facility] on above:Performed By: #### VITAD, FETIBC, FERR #### [facility] [address] [place] [address] Dr. And[facility] H[facility]roveAMSTERD[facility] (RBC) [Mass/Vol]32.2 g/wZCvyief98.9-35.2The [facility] on above:Performed By: #### VITAD, FETIBC, FERR #### [facility] [address] [place] [address] Dr. Andrey Coker (RBC) [Entitic vol]88.1 xRGhflfc92.0-99.0The [facility] on above:Performed By: #### VITAD, FETIBC, FERR #### [facility] [address] [place] [address] Dr. Andrey HargrovePLT198 103/vsVffnkp663-990Lfs [facility] on above: Performed By: #### VITAD, FETIBC, FERR #### [facility] [address] [place] [address] Dr. Andrey HargroveRBC3.60 106/ulCritically low4.20-5.40The [facility] on above:Performed By: #### VITAD, FETIBC, FERR #### [facility] [address] [place] [address] Dr. Andrey HargroveWBC8.5 103/ulNormal4.0-11.0The [facility] HospitalComment on above: Performed By: #### VITAD, FETIBC, FERR #### [facility] [address] [place] [address] Dr. Andrey Mason AND TIBCon 01-17-2022% TYFYQYKXFN16.8 %NormalThe St. [facility]'S HospitalComment on above:Performed By: #### VITAD, FETIBC, FERR #### [facility] [address] [place] [address] Dr. Andrey Mason [Mass/Vol]47.0 ug/dLCritically low50.0-170.0The [facility]S HospitalComment on above:Performed By: #### VITAD, FETIBC, FERR #### [facility] [address] [place] [address] Dr. Andrey HargroveTIBElissa BSDFPA605.0 ug/iXMhvepz397.0-450.0[facility] Comment on above:Performed By: #### VITAD, FETIBC, FERR #### [facility] [address] [place] [address] Dr. Andrey HargroveMAGNESIUMon 31-88-0985Ltyipyhvw [Mass/Vol]2.0 mg/dLNormal1.8-2.[address] [facility] HospitalComment on above:Performed By: #### VITAD, FETIBC, FERR #### [facility] [address] [place] [address] Dr. Andrey HargroveRENAL FUNCTION PANELon 58-47-5878Wmsiwkf [Mass/Vol]3.3 g/dL Critically low3.4-5.0The [facility] HospitalComment on above:Performed By: #### VITAD, FETIBC, FERR #### [facility] [address] [place] [address] Dr. Andrey HargroveCalcium [Mass/Vol]9.1 mg/dLNormal8.5-10.1The [facility] Comment on above:Performed By: #### VITAD, FETIBC, FERR #### [facility] [address] [place] [address] Dr. Andrey HargroveChloride [Moles/Vol]104 mmol/ASqblca57-716Jcn [facility] Comment on above:Performed By: #### VITAD, FETIBC, FERR #### [facility] [address] [place] [address] Dr. Andrey HargroveCO2 [Moles/Vol]27.6 mmol/IQmzlks75.0-32.0[facility] Comment on above:Performed By: #### VITAD, FETIBC, FERR #### [facility] [address] [place] [address] Dr. Andrey HargroveCreatinine [Mass/Vol]1.71 mg/dLCritically high0.55-1.02[facility] HospitalComment on above:Performed By: #### VITAD, FETIBC, FERR #### [facility] [address] [place] [address] Dr. Andrey WilkinsonGFR-AF BIGURSIG60 mL/min/1.84f5Oxzidbjljh low>=60The [facility]S HospitalComment on above:Performed By: #### VITAD, FETIBC, FERR #### [facility] [address] [place] [address] Dr. Andrey WilkinsonGFR-NON AF MILHKVZD80 mL/min/1.29g9Lcuupdvkql low>=60The [facility] HospitalComment on above:Performed By: #### VITAD, FETIBC, FERR #### [facility] [address] [place] [address] Dr. Andrey HargroveGlucose [Mass/Vol]115 mg/dLCritically tvzx96-674Csh [facility]S HospitalComment on above:Performed By: #### VITAD, FETIBC, FERR #### [facility] [address] [place] [address] Dr. Andrey HargrovePhosphate [Mass/Vol]4.3 mg/dLNormal2.6-4.7The [facility] Comment on above:Performed By: #### VITAD, FETIBC, FERR #### [facility] [address] [place] [address] Dr. Andrey HargrovePotassium [Moles/Vol]3.9 mmol/LNormal3.5-5.1[facility] Comment on above:Performed By: #### VITAD, FETIBC, FERR #### [facility] [address] [address] [address] Andrey Toneyum [Moles/Vol]139 mmol/KDkukol374-620Gkj [facility] Comment on above:Performed By: #### VITAD, FETIBC, FERR #### [facility] [address] [address] [address] Andrey Mccarty nitrogen [Mass/Vol]38.0 mg/dLCritically high7.0-18.0[facility] HospitalComment on above:Performed By: #### VITAD, FETIBC, FERR #### [facility] [address] [address] [address] Andrey Link RANDOM W/MICROSCOPICon [id number] SEENNormalNONE SEENBlanchard [facility] HospitalComment on above:Performed By: #### LIPID, TSH, FT3 #### [facility] [address] [place] [address] Dr. Andrey Godfrey Ql (U)NegativeNormalNEGATIVEBlanchard [facility] Comment on above:Performed By: #### LIPID, TSH, FT3 #### [facility] [address] [address] [address] Andrey RiveraENAbnormalNONE SEENBlanchard [facility] System [facility] HospitalComment on above: Performed By: #### LIPID, TSH, FT3 #### [facility] [address] [address] [address] Andrey Lau (U)CLEARNormalCLEARBlanchard [facility] System [facility] HospitalComment on above: Performed By: #### LIPID, TSH, FT3 #### [facility] [address] [address] [address] Andrey Cervantes (U)LT. YELLOWNormalYELLOWBlanchard [facility] HospitalComment on above:Performed By: #### LIPID, TSH, FT3 #### [facility] [address] [address] [address] Andrey Mckenzie LM Nom (Urine sed)NONE SEENNormalNONE SEENThe [facility] HospitalComment on above:Performed By: #### LIPID, TSH, FT3 #### [facility] [address] [address] [address] Andrey Wilkinsonpithelial cells LM Ql (Urine sed)FEWAbnormalNONE SEEN /RAREBlanchard Valley Health System [facility] HospitalComhenry ford [facility] on above:Performed By: #### LIPID, TSH, FT3 #### [facility] [address] [address] [address] Andrey HargroveGlucose Ql (U)NegativeNormalNEGATIVEBlanchard [facility] HospitalComment on above:Performed By: #### LIPID, TSH, FT3 #### [facility] [address] [address] [address] Andrey HargroveHemoglobin Ql (U)NegativeNormalNEGThe [facility] on above:Performed By: #### LIPID, TSH, FT3 #### [facility] [address] [address] [address] Andrey ConcepcionALINE CASTRARENormalOhioHealth [facility] on above: Performed By: #### LIPID, TSH, FT3 #### [facility] [address] [address] [address] Andrey HargroveKetones Ql (U)NegativeNormalNEGATIVEOhioHealth Pickerington [facility] Hospital on above:Performed By: #### LIPID, TSH, FT3 #### [facility] [address] [address] [address] Andrey HargroveLEUKOCYTESTRACEAbnormalNEGMain Campus Medical Center on above:Performed By: #### LIPID, TSH, FT3 #### [facility] [address] [address] [address] Andrey HargroveMUCOUSNONE SEENNormalNONE SEENOhioHealth Pickerington [facility] Hospital on above:Performed By: #### LIPID, TSH, FT3 #### [facility] [address] [address] [address] Andrey Schneidertrite Ql (U)NegativeNormalNEGATIVEBlanchard Valley [facility] HospitalComhenry for[facility] hospital on above:Performed By: #### LIPID, TSH, FT3 #### [facility] [address] [address] [address] Andrey HargrovepH (U)5.0 [pH]Normal5-9The [facility] on above: Performed By: #### LIPID, TSH, FT3 #### [facility] [address] [address] [address] Andrey FuXsxhaBAZ1-3Marztw3-5Gbp [facility] HospitalComment on above:Performed By: #### LIPID, TSH, FT3 #### [facility] [address] [address] [address] Andrey HargroveSPEC GRAVITY1.598Snuioz5.005-<=1.025The [facility]'S HospitalComment on above:Performed By: #### LIPID, TSH, FT3 #### [facility] [address] [place] [address] Dr. Andrey HargroveUA PROTEINNegativeNormalNEGATIVE/ TRACEThe St[facility] Comment on above:Performed By: #### LIPID, TSH, FT3 #### [facility] [address] [address] [address] Andrey Mercadobilfoxgen Qn (U)0.2 {Kelly'U}/dLNormal0.2 - 1.0The [facility] on above:Performed By: #### LIPID, TSH, FT3 #### [facility] [address] [address] [address] Andrey HargroveWBC2-5AbnormalNONE SE[address]The [address] [facility]S HospitalComment on above: Performed By: #### LIPID, TSH, FT3 #### [facility] [address] [place] [address] Dr. Andrey HargroveURIC ACID SERUMon [id number] [Mass/Vol]5.4 mg/dLNormal 2.6-6.0The [facility] HospitalComment on above:Performed By: #### VITAD, FETIBC, FERR #### [facility] [address] [place] [address] Dr. Andrey HargroveURINE T PROTEIN CREAT RATIOon [id number] (U) [Mass/Vol] 15.3 mg/dLCritically high<=12.0[facility] HospitalComment on above:Performed By: #### VITAD, FETIBC, FERR #### [facility] [address] [place] [address] Dr. Andrey Fox PROT CREAT RAT0.36NoRiverside Methodist HospitalComment on above: Performed By: #### VITAD, FETIBC, FERR #### [facility] [address] [place] [address] Dr. Andrey Sanchez CREAT42.16 mg/eAVpsbxx91.00-300.00[facility] Comment on above:Performed By: #### VITAD, FETIBC, FERR #### [facility] [address] [place] [address] Dr. Andrey HargroveVITAMIN D 25 OHon [id number] D 25-OH73.8 ng/mLNormalBlanchard Valley [facility] System [facility] HospitalComment on above:Performed By: #### VITAD, FETIBC, FERR #### [facility] [address] [place] [address] Dr. Andrey GREYE BELOWLima Memorial HospitalComment on above: Result Comment: <20 ng/mL Vit D deficient 20 - <30 ng/mL Vit D insufficient 30 - 100 ng/mL Vit D sufficient >100 ng/mL Potential ToxicityPerformed By: #### VITAD, FETIBC, FERR #### [facility] [address] [place] [address] Dr. Andrey HargrovePROF CHEM 8 (BAS METB)on [id number] gap [Moles/Vol]13.3 mmol/LNormalBlanchard Valley [facility] Bl[facility] HospitalComment on above:Performed By: #### VITAD, FETIBC, FERR #### [facility] [address] [place] [address] Dr. Andrey HargroveCalcium [Mass/Vol]9.5 mg/dLNormal8.5-10.1[facility] Comment on above:Performed By: #### VITAD, FETIBC, FERR #### [facility] [address] [place] [address] Dr. Andrey HargroveChloride [Moles/Vol]98 mmol/ZPjmoyk74-037Dhv [facility] Comment on above:Performed By: #### VITAD, FETIBC, FERR #### [facility] [address] [place] [address] Dr. Andrey HargroveCO2 [Moles/Vol]25.7 mmol/IQyllzi03.0-32.0The [facility] Comment on above:Performed By: #### VITAD, FETIBC, FERR #### [facility] [address] [place] [address] Dr. Andrey HargroveCreatinine [Mass/Vol]2.92 mg/dLCritically high0.55-1.02The [facility] HospitalComment on above:Performed By: #### VITAD, FETIBC, FERR #### [facility] [address] [place] [address] Dr. Andrey WilkinsonGFR-AF WOROXZOY63 mL/min/1.53n4Zhnqjmunhh low>=60The [facility] HospitalComment on above:Performed By: #### VITAD, FETIBC, FERR #### [facility] [address] [place] [address] Dr. Andrey WilkinsonGFR-NON AF EOKFOMNH61 mL/min/1.14v7Vwcrfbqves low>=60The [facility] HospitalComment on above:Performed By: #### VITAD, FETIBC, FERR #### [facility] [address] [place] [address] Dr. Andrey HargroveGlucose [Mass/Vol]156 mg/dLCritically qmqr59-456Uht St[facility] HospitalComment on above:Performed By: #### VITAD, FETIBC, FERR #### [facility] [address] [place] [address] Dr. Andrey HargrovePotassium [Moles/Vol]5.0 mmol/LNormal3.5-5.1[facility] Comment on above:Performed By: #### VITAD, FETIBC, FERR #### [facility] [address] [place], [place] [address] Dr. Andrey HargroveSodium [Moles/Vol]132 mmol/LCritically csa176-542Ofw St[facility] HospitalComment on above:Performed By: #### VITAD, FETIBC, FERR #### [facility] [address] [place], [place] [address] Dr. Andrey Mccarty nitrogen [Mass/Vol]77.0 mg/dLCritically high7.0-18.0The [facility] HospitalComment on above:Result Comment: CALLED TO FRANCIS JUNG RMA Performed By: #### VITAD, FETIBC, FERR #### [facility] [id number] Andrey Mccarty nitrogen/Creatinine [Mass ratio]26.4 mg/mgNormalThe St. [facility]'S HospitalComment on above:Performed By: #### VITAD, FETIBC, FERR #### [facility] [address] [address] [address] Andrey HargroveCardiovascular Lab Reporton [id number] Lab Report [facility] Patient Name: [facility] MR #: [id number] Physician: Karthik Larson Department of [facility] Service Date: 12/09/2021 Division of Birthdate: 1950 Cardiology Room #: [facility] Cardiovascular Services [place] [address] Cardiovascular Laboratory Report INDICATION: The patient is [...] signed informed consent. She was brought to farm [employer] in a fasting state. The right neck area was prepped and draped in usual fashion. Micropuncture technique and ultrasound guidance were used for access in the right internal jugular vein. A 5-Brazilian x 11 cm sheath was placed. A 5-Brazilian Dumont catheter was used for right heart [...] Fish M.D. Date Trans: 12/09/2021 11:37 P/joey HALE_JN:[id number] cc: John Perdomo D.O. [address] [facility] [address]VkxwmfFmaOhioHealth Mansfield Hospital COMPLETE BLOOD COUNTon [id number] distribution width (RBC) [Ratio]13.6 %Normal 11.5-15.0The [facility] CenterComment on above:Performed By: #### [id number] #### [facility] [address] [facility] [place] [address], [facility] MEDICAL CENTERHematocrit (Bld) [Volume fraction]35.6 %Low36.0-45.0The [facility] CenterComment on above:Performed By: #### [id number] #### [facility] [address] [place] [address], [facility] MEDICAL CENTERHemoglobin (Bld) [Mass/Vol]11.8 g/dLLow12.0-15.0The [facility] CenterComment on above:Performed By: #### [id number] #### [facility] [address] [facility] [place] [address], [facility] MEDICAL CENTERMCH (RBC) [Entitic mass]28.6 tgBfyqon09.0-33.0The [facility] CenterComment on above:Performed By: #### [id number] #### [facility] [address] [facility] [place] [address], [facility] MED[facility] CENTERMCHC (RBC) [Mass/Vol]33.1 g/qGZipezd53.0-35.0The [facility] CenterComment on above:Performed By: #### [id number] #### [facility] [address] [facility] [place] [address], [facility] (RBC) [Entitic vol]86.2 gFHnmrfv47.0-98.0The [facility] CenterComment on above:Performed By: #### [id number] #### [facility] [address] [place] [place] [address], USANucleated RBC/100 WBC (Bld) [Ratio]0 %Normal0-0The [facility] CenterComment on above:Performed By: #### [id number] #### [facility] [address] [place] [address], USAPLAT [id number] 10*3/aEImgoou677-139Sij [facility] Medical CenterComment on above:Performed By: #### [id number] #### [facility] [address] [facility] [place] [address], USARBC (Bld) [#/Vol]4.13 10*6/uLNormal3.80-5.00The [facility] Medical CenterComment on above:Performed By: #### [id number] #### [facility] [address] [place] [address], USAWBC (Bld) [#/Vol]14.13 10*3/uLHigh4.00-10.60The [facility] Medical CenterComment on above:Performed By: #### [id number] #### [facility] [address] [facility] [place] [address], USACovid-19 PCR ([facility])on 96-86-6286IESG-CoV-2 (COVID-19) RNA JAYASHREE+probe Ql (Unsp spec)Not detectedNormalNOT DETECTEDThe [facility] Comment on above:Result Comment: This test is not yet approved or cleared by the [place] FDA. When there are no FDA-approved or cleared tests available, and other criteria are met, FDA can make tests available under an emergency access mechanism called an Emergency Use Authorization (EUA). The EUA for this test is supported by the Service Or Work Dispatcher of Health and Human Service's (HHS's) declaration [...] SARS-CoV-2.Performed By: #### VITAD, FETIBC, FERR #### [facility] [id number] Andrey ZelayaCARDINam M/2D COMPLETEon 80-55-8924ZHSZNANYRD M/2D COMPLETE Patient: CLAUDIA ESTRELLA Exam Date: 12/06/2021 : 1950 Gender:F Ordering : KWAN ROSALES Admission #: [id number] Family : DR JOHN PERDOMO DPayal Order #: [id number] CLICK HERE TO VIEW EXAM ECHOCARDIOGRAM REPORT [...] Area(A4C): 14.80 cm2 Left Atrium Systolic Volume(A2C): 86656 mm3 Left Atrium Systolic Volume(A4C): 17533 mm3 Mitral Valve MV E to A [...] by: Karthik Fish M.D. on 12/06/2021 at 17:31[facility] HospitalBNPon 09-55-6102Iksibfdjodw peptide B (Bld) [Mass/Vol]5127.0 pg/mL Critically high<=900.0The St. Rita'S HospitalComment on above:Performed By: #### VITAD, FETIBC, FERR #### [facility] [address] [place] [address] Dr. Andrey Kimble CHEM 8 (BAS METB)on 19-97-2632Wufhr gap [Moles/Vol]13.9 mmol/LNormalThe St. Rita'S HospitalComment on above:Performed By: #### VITAD, FETIBC, FERR #### [facility] [address] [place] [address] Dr. Andrey HargroveCalcium [Mass/Vol]9.4 mg/dLNormal8.5-10.1The [facility] Comment on above:Performed By: #### VITAD, FETIBC, FERR #### [facility] [address] [place] [address] Dr. Andrey HargroveChloride [Moles/Vol]99 mmol/AZwwoix26-029Ikp [facility] Comment on above:Performed By: #### VITAD, FETIBC, FERR #### [facility] [address] [place] [address] Dr. Andrey HargroveCO2 [Moles/Vol]28.4 mmol/OAksvhx82.0-32.0[facility] Comment on above:Performed By: #### VITAD, FETIBC, FERR #### [facility] [address] [place] [address] Dr. Andrey HargroveCreatinine [Mass/Vol]2.11 mg/dLCritically high0.55-1.02The St[facility]'S HospitalComment on above:Performed By: #### VITAD, FETIBC, FERR #### [facility] [address] [place] [address] Dr. Andrey WilkinsonGFR-AF RXAYQBPU74 mL/min/1.25h4Cjdqlahtok low>=60The St[facility]'S HospitalComment on above:Performed By: #### VITAD, FETIBC, FERR #### [facility] [address] [place] [address] Dr. Andrey WilkinsonGFR-NON AF JXOTPPLG31 mL/min/1.97q1Nafxqqvgqi low>=60The St[facility]'S HospitalComment on above:Performed By: #### VITAD, FETIBC, FERR #### [facility] [address] [place] [address] Dr. Andrey HargroveGlucose [Mass/Vol]179 mg/dLCritically rejm69-704Bpe St. [facility]'S HospitalComment on above:Performed By: #### VITAD, FETIBC, FERR #### [facility] [address] [place] [address] Dr. Andrey HargrovePotassium [Moles/Vol]4.3 mmol/LNormal3.5-5.1The [facility] Comment on above:Performed By: #### VITAD, FETIBC, FERR #### [facility] [address] [place] [address] Dr. Andrey HargroveSodium [Moles/Vol]137 mmol/OTyzgjd580-882Zee [facility] Comment on above:Performed By: #### VITAD, FETIBC, FERR #### [facility] [address] [place] [address] Dr. Andrey HargroveUrea nitrogen [Mass/Vol]62.0 mg/dLCritically high7.0-18.0The St[facility]'S HospitalComment on above:Performed By: #### VITAD, FETIBC, FERR #### [facility] [address] [place] [address] Dr. Andrey Mccarty nitrogen/Creatinine [Mass ratio]29.4 mg/mgNormalThe St. Rita'S HospitalComment on above:Performed By: #### VITAD, FETIBC, FERR #### [facility] [address] [place] [address] Dr. Andrey Monge 65-05-2904Dzagnroszyr peptide B (Bld) [Mass/Vol]4773.0 pg/mLCritically high<=900.0The St[facility]'S HospitalComment on above:Performed By: #### VITAD, FETIBC, FERR #### [facility] [address] [place] [address] Dr. Andrey Kimble CHEM 8 (BAS METB)on 82-91-3178Zugbc gap [Moles/Vol]11.3 mmol/LNormalThe St. Rita'S HospitalComment on above:Performed By: #### VITAD, FETIBC, FERR #### [facility] [address] [place] [address] Dr. Andrey HargroveCalcium [Mass/Vol]8.9 mg/dLNormal8.5-10.1[facility] Comment on above:Performed By: #### VITAD, FETIBC, FERR #### [facility] [address] [place] [address] Dr. Andrey HargroveChloride [Moles/Vol]100 mmol/PWpmepc25-855PfiBlanchard Valley Health System [facility] Comment on above:Performed By: #### VITAD, FETIBC, FERR #### [facility] [address] [place] [address] Dr. Andrey HargroveCO2 [Moles/Vol]30.9 mmol/TNfsrnp41.0-32.0The [facility] Comment on above:Performed By: #### VITAD, FETIBC, FERR #### [facility] [address] [place] [address] Dr. Andrey HargroveCreatinine [Mass/Vol]2.01 mg/dLCritically high0.55-1.02The St[facility]'S HospitalComment on above:Performed By: #### VITAD, FETIBC, FERR #### [facility] [address] [place] [address] Dr. Andrey WilkinsonGFR-AF KUDWWUEO94 mL/min/1.86h1Huqdmstrmu low>=60The St[facility]'S HospitalComment on above:Performed By: #### VITAD, FETIBC, FERR #### [facility] [address] [place] [address] Dr. Andrey WilkinsonGFR-NON AF FCCZFEHY81 mL/min/1.64g5Iblogliadq low>=60The St[facility]'S HospitalComment on above:Performed By: #### VITAD, FETIBC, FERR #### [facility] [address] [place] [address] Dr. Andrey HargroveGlucose [Mass/Vol]81 mg/aNJrtmgp08-998VdtBlanchard Valley [facility] Comment on above:Performed By: #### VITAD, FETIBC, FERR #### [facility] [address] [place] [address] Dr. Andrey HargrovePotassium [Moles/Vol]3.2 mmol/LCritically low3.5-5.1The St[facility]'S HospitalComment on above:Performed By: #### JOSE NICOLASC, FERR #### [facility] [address] [address] [address] Andrey HargroveSodium [Moles/Vol]139 mmol/PAmmvcp043-993Pgs [facility] Comment on above:Performed By: #### JOSE NICOLASC, FERR #### [facility] [address] [address] [address] Andrey Mccarty nitrogen [Mass/Vol]51.0 mg/dLCritically high7.0-18.0The St[facility]'S HospitalComment on above:Performed By: #### DANIA NICOLAS, FERR #### [facility] [address] [address] [address] Andrey Mccarty nitrogen/Creatinine [Mass ratio]25.4 mg/mgNormalThe St. Rita'S HospitalComment on above:Performed By: #### DANIA NICOLAS, FERR #### [facility] [address] [address] [address] Andrey Clay19 Antigenon 08-20-5689RIJOF-19 AntigenHealthcare Worker?: N Kenny Reference Kenny Reference [...] its performance Kenny Disclaimer characteristic determined by [employer] and Kenny Disclaimer validated at [facility] [...] is terminated or revoked sooner. PERFORMED BY: [facility] [address] [place] [address] PATHOLOGIST ELECTRONICS LEAD JAMAL ALLEN M.D.NormalTrumbull Regional Medical CenterComment on above: Performed By: #### SOFIAPOS, COVID-19 KENNY #### [facility] [address] [place] [address] USASofia Ag Positiveon 15-57-7072Qrblx Ag PositivePositive Critically abnormalNegativeTrumbull Regional Medical CenterComment on above: Result Comment: This is a duplicate Kenny SARS Antigen (JOSE RAMON) result to be used for statistical tracking purpose only. PERFORMED BY: [address] [id number] PATHOLOGIST ELECTRONICS LEAD JAMAL ALLEN M.D.Performed By: #### SOFCUONGPOS, COVID-19 KENNY #### [address] [address] USACoding Summary.on 66-22-4308Bsotap Summary. CD:234274OW:6711970NRj0hYc+PGhlYWQ+YD8XCVJvR90myJZvuW2VH8cGMI5RSEVPWCPGBD9MJY7on VP4TNhnV5JkyuVo [file] bGxh (more content not included)...[facility] HospitalConsent for Procedure/Surgeryon 13-84-7676Dxjijfj for Procedure/Surgery [id number]#1.00CD:[address] [place], [place] [address]Formson [id number]#1.00CD:[address] [place], [place] [address]Lab Reportson 00-91-9519Mkh Reports [id number]#1.00CD:[address] [place], [place] [address]Physician Referralon 66-91-2307Pcjahdxpn Referral [id number]#1.00CD:[address] [place], [place] [address]RAD - MISCon 01-49-8371XWI - MISC [id number]#1.00CD:[address] [place], [place] [address]RAD - Ultrasound Reporton 12-52-8077KGV - Ultrasound Report [id number]#1.00CD:[address] [place], [place] [address]Ambulatory Clinical Summaryon 09-04-8125Yssxwgcnva Clinical Summary {61-43-09-l0-07-zr-2e-91-a1-10-v5-21-52-c3-f8-10}CD:361139GsdqorFxuwuu [facility] MarylandPatient Educationon 14-06-6904Fosgaug EducationUrology Hematuria, Adult Hematuria is blood in [...] these instructions at home: Medicines ? Take mcvq-fxh-ibggunp and prescription medicines only as told by [...] the blood stops without treatment. ? Take dftv-mul-hchrwxs and prescription medicines only as told by your health care provider. ? Drink enough fluid to keep your urine clear or pale yellow. This information is not intended to replace advice given to you by your health care provider. Make sure you discuss any questions you have with your health care provider. Document Released: 06/19/2006 Document Revised: 11/13/2019 Document Reviewed: 07/22/2017 [employer] Patient Education ? 2019 [employer] Urology Office/Clinic Noteon 67-14-6663Pvdchme Office/Clinic NoteChief Complaint Cysto/UD HPI Staff Cysto/UD [...] The Urethra was dilated to: _18- 30 Brazilian with sounds. Specimens Removed: None Removal: Cystoscope [...] URL [facility] [address], [place] [address]- [phone] Additional Instructions: f/u PRN Patient Education Hematuria, [...] 50,000 intl units (1.25 mg) oral capsule, [address] International_Unit= 1 cap(s), Monday Zioptan 0.0015% ophthalmic solution Allergies erythromycin (Anaphylactic reaction) penicillin (Hives) Social History Alco (more content not included)...[facility] HospitalComment on above:Result Comment: Electronically Signed By: Marcos KWON MD\.br\Date and Time Signed: 12/15/20 15:58 EDT\.br\Electronically Co-Signed By: Donna Hartley\.br\Date and Time Co-Signed: 12/15/20 15:56 EDTReminderson 12-14-2020 Reminders From: Augusta Singh To: EU - Clinical; Sent: 12/11/2020 13:29:41 EDT Show up: 12/14/2020 13:29:00 EDT Subject: Urine culture Reminder/Recall Urine Culture PRW reviewed positive culture.[facility] HospitalC Urineon 37-43-1768Vcsroeba identified Cx Nom (U)Microbiology PROCEDURE: Urine Culture [R1] SOURCE: U Random BODY SITE: COLLECTED DATE/TIME: 12/11/2020 13:25 EDT RECEIVED DATE/TIME: 12/11/2020 18:10 EDT START DATE/TIME: 12/11/2020 18:10 EDT FREE TEXT SOURCE: Marcos KWON MD, MD, Patrick R FINAL REPORTS Final Report [] Verified Date/Time: [...] R1: This test was performed at: [facility], [address] [place] [address], [address]- , , HkiejaHoyvelProMedica Fostoria Community HospitalComment on above:Performed By: #### [id number] ####[facility] [address] [place], [place] [address]Rnhijsfeaw Clinical Summaryon 44-64-6197Ktvqstvspn Clinical Summary {75-63-6s-b4-29-ju-27-e7-8a-0d-j9-fm-d3-6c-b8-cc}CD:959775AzdfgzHtmvavBellevue HospitalAmbulatory Clinical Summary {12-5j-rs-01-34-46-6l-4d-gb-38-5l-0v-8d-13-29-0f}CD:236331JioglhHwhztwBellevue HospitalAmbulatory Clinical Summary {1k-7z-5z-36-4i-0i-02-9j-64-41-43-4o-2b-c5-e6-1f}CD:652580AgoeamAxpgmmBellevue HospitalPatient Educationon 40-52-4485Csiqxta EducationUrology Hematuria, Adult Hematuria is blood in [...] these instructions at home: Medicines ? Take qveb-sxt-kihxyed and prescription medicines only as told by [...] the blood stops without treatment. ? Take xgju-gig-fckvnop and prescription medicines only as told by [...] Reviewed: 07/22/2017 Elsevier Patient Education ? 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 Jenkins due to Hematuria. Pt states that since the End of October she has been feeling a slight squeeze, no pain associated with this. Pt had a Renal US done at [facility]. Pt states that she has a [...] Information CHER VIGIL, Marcos Abreu, URL [address] [place] [address]- [phone] Additional Instructions: Patient Education Hematuria, Adult I, [...] 100 mg Tab amLOD (more content not included)...[facility] HospitalComment on above:Result Comment: Electronically Signed By: Marcos KWON MD\.br\Date and Time Signed: 12/11/20 11:17 EDT\.br\Electronically Co-Signed By: Regla Pyle MA\.br\Date and Time Co-Signed: 12/11/2110:12 EDTLab Reportson 12-18-8536Lem [id number]#1.00CD:[address] [place], [place] [address]Lab Reports [id number]#1.00CD:[address] [place], [place] [address]RAD - Ultrasound Reporton 78-70-8249NPK - Ultrasound Report [id number]#1.00CD:[address] [place], [place] [address]IntraOperative Documentson 75-32-2767YwxmjJgvmqsqne Documents [id number]#1.00CD:[address] [place], [place] [address]Message from Medicareon 37-46-1154Ixeytvi from Medicare [id number]#1.00CD:[address] [place], [place] [address]Coding Summary.on 79-97-0752Serdkf Summary.CODING DATE: 05/06/2020 FINAL [facility] DSCH STATUS: Home (Routine DC) PAYOR: [...] PROC APC STAT DESCRIPTION DOCTOR NAME DATE 21654 4417 J1 Arthroscopy, knee, David Talamantes DO 05/01/2020 surgical; with meniscectomy (medial OR lateral, including any meniscal shaving) including debridement/shaving of articular cartilage (chondroplasty), same or separate compartment(s), when performed LT Left side (used to identify procedures performed on the left side of the body) 84914 Anesthesia for open or Gurmeet Aldridge Jr, DO 05/01/2020 surgical arthroscopic procedures on knee joint; not otherwise specified NOTE: The code number assigned matches the documented diagnosis and / or procedure in the patient's chart. However, the narrative phrase printed from the coding software may appear abbreviated, or result in slightly different terminology. Revised Coded By: Carmita Bowers Revised Date Saved: 05/06/2020 11:55 amNLouis Stokes Cleveland [facility] Center Insurance Correspondence Officeon 52-89-8775Kwiynzxyc Correspondence Office [id number]#1.00CD:127NoBellevue HospitalMain OR Intraoperative Recordon 50-13-2443Mpxr OR Intraoperative Record IntraOp Document Type FT Summary Primary Physician: David Talamantes DO Finalized Date/Time: 05/05/20 14:09:46 Pt. Name: CLAUDIA ESTRELLA/Sex: 1950 Female Med Rec #: [id number] Physician: David Talamantes DO Financial #: [id number] Pt. Type: O Room/Bed: N217/01 Admit/Disch: 05/01/20 [...] Role Performed Anesthesiologist of Surgeon - Primary Highway Design Engineer - Primary Record Time In 05/01/20 14:26:00 05/01/20 14:39:00 05/01/20 14:26:00 Time Out 05/01/20 15:04:00 05/01/20 15:04:00 05/01/20 15:04:00 Procedure KNEE ARTHROSCOPY(Left) KNEE ARTHROSCOPY(Left) KNEE ARTHROSCOPY(Left) Comments Last Modified By: Edgar RN, Viky Hernández RN, Viky Krueger RN 05/01/20 15:04:35 05/01/20 15:04:35 05/01/20 15:04:35 Entry 4 Entry 5 Entry 6 Case Attendee Maxim RN, Augusta Castro HEAD WAITRESS, Leatha Flowers RN, CNOR, Cee Role Performed Highway Design Engineer - Primary Scrub - Primary Highway Design Engineer - Relief Time In 05/01/20 14:26:00 05/01/20 [...] DO, Viky Hernández RN, Chapin RN, Augusta P, Matthew HEAD WAITRESS, Leatha M Time Out Complete 05/01/20 14:39:00 Outcomes Met? [...] and tissue Entry 1 Skin Integrity Intact, [place], Warm, and Skin Abnormality No Dry Outcomes Met? Yes Last Modified By: Edgar WU, Viky Mcdonough 05/01/20 14:46:48 Post-Care Text: The patient is free from signs and symptoms of injury caused by extraneous objects Patient Positioning FT Pre-Care Text: Identifies physical alterations that require additional precautions for procedure-specific positioning, verifies presence of prosthetics or corrective (more content not included)... [facility] HospitalProgress Note-Physicianon 76-38-7569Gfwldvtb Note-PhysicianPatient: CLAUDIA ESTRELLA Age: 70 years Sex: [...] volume (mL): 1,000, 68.3 kg, 1.64, m2 [place] 5/325 Tab: 1 tab(s), Tab, Oral, q4hr [...] Problems DM kidney disease / SNOMED CT 421108420 / Confirmed PVD (peripheral vascular disease) / SNOMED CT 8047011682 / Confirmed MMT (medial meniscus tear) / SNOMED CT 064746606 / Confirmed Resolved: Ocular herpes zoster / SNOMED CT 586375956 Resolved: HTN (hypertension) / SNOMED CT 3038900672 Canceled: Diabetes / SNOMED CT 314061245 Histories Past Medical History: No active or resolved past medical history items have been selected or recorded. Family History: No family history items have been selected or recorded. Procedure history: Right eye cataract extraction and insertion of intraocular lens (8367202022) on 11/19/2019 at 69 Years. Cataract extraction and insertion of intraocular lens (7147203941) on 11/06/2019 at 69 Years. Comments: 11/06/2019 14:13 EDT - [place] RN, Loreto Abreu Left Appendectomy (034838270). section x2 (24521421). Cholecystectomy (29027014). Anesthesia for laparoscopic procedure on lower abdomen (23286316). Cheilectomy of tarsal foot (4327046912). Social History Social & Psychosocial Habits Alcohol [...] Class III. Anesthetic Preoperative (more content not included)...[facility] HospitalComment on above:Result Comment: Electronically Signed By: Gurmeet [...] Problems DM kidney disease / SNOMED CT 729673703 / Confirmed PVD (peripheral vascular disease) / SNOMED CT 0890709306 / Confirmed MMT (medial meniscus tear) / SNOMED CT 107986358 / Confirmed Resolved: Ocular herpes zoster / SNOMED CT 523376168 Resolved: HTN (hypertension) / SNOMED CT 4549692713 Canceled: Diabetes / SNOMED CT 480209969 Physical Examination Vital Signs 05/01/2020 16:58 EDT [...] levels. will F/U Plan Transfer/ Discharge: Condition stable.[facility] HospitalComment on above:Result Comment: Electronically Signed By: Gurmeet Aldridge Jr, DO\Date and Time Signed: 05/05/20 08:22 ESTCapillary Glucose POCon 37-16-2404Cuqryiz [Mass/Vol]149 mg/cISnui63-90Gredcd57 Charles StreetComment on above:Result Comment: Notified RN/MDPerformed By: #### [id number] #### [facility] [address] [place], [place] [address]Ackpsse [Mass/Vol]127 mg/bZAuzt43-45Aqbptq[address] Comment on above:Result Comment: Notified RN/MDPerformed By: #### [id number] #### [facility] [address] [place], [place] [address]Irqccmv for Anesthesiaon 09-51-6049Hafvcth for Anesthesia [id number]#1.00CD:[address] [place], [place] [address]Discharge Instructionson 91-09-9049Cjmjyzjuo Instructions [id number]#1.00CD:127[facility] Community HospitalInpatient Clinical Summaryon 18-51-7074Wybeumvkh Clinical Summary [address] [id number] Clinical Summary Person Information: Name: CLAUDIA ESTRELLA Age: 70 Years : 1950 Sex: Female PCP: JOHN PERDOMO DO Marital Status: Race: White Ethnicity: Non- or Language: Hungarian Visit Id: Visit Reason: LEFT KNEE BONE BRUISE, MEDIAL MENISCUS TEAR, EFFUSION Speciality: Acuity: Enc Type: Observation Med Service: Surgery Arrival: 05/01/2020 11:43:14 Discharge: Dispo Type: Address: [address] [place] [address] Provider Notes: Diagnosis: 1:Other chest pain; 2:Hypertension; [...] up: With: Address: When: Follow up with Deaf Teacher Within 1 week With: Address: When: JOHN PERDOMO [facility] [place] [address] Business (1) With: Address: When: David Talamantes [address] [place] [address] Business (1) Comments: Keep scheduled appointment Patient Education Information: Post Op Patient Instructions - FT (Custom); Knee Cryocuff Patient Instructions - FT (Custom); [place] - Knee Arthroscopy (Custom) (CUSTOM)[facility] HospitalInpatient Patient Summaryon 84-18-9426Oboefcfwd Patient Summary [address] [address] Patient Discharge Instructions PERSON INFORMATION [...] Dressing On : 2 David Talamantes DO T - 04/28/2020 18:06 EDT Primary Care Physician to provide the following pending test results: None Follow up: With: Address: When: Follow up with Deaf Teacher Within 1 week With: Address: When: JOHN PERDOMO [address] [place], [place] [address] Business (1) With: Address: When: David Talamantes [address] [place] [address] Business (1) Comments: Keep scheduled appointment [...] STAY New Medications [id number], [address], [place] [id number], [phone] atorvastatin (Lipitor 20 mg Tab) 1 Tablets [...] ALL TIMES. amlodipine (amLO (more content not included)...[facility] Interdisciplinary Note - PTon 25-40-6341Wvhbtmgoswcgyhmtd Note - PTPT Screen performed. Pt was able to stand and ambulate throughout room without difficulty and without an AD. Pt also demos appropriate ROM to knee. Would recommend to f/u with Ortho to determine if therapy is needed in the future, but no PT needed at this timeNoBellevue HospitalIntraOperative Documentson 05-04-2020 IntraOperative [id number]#1.00CD:127 [facility] HospitalIntraOperative Documents [id number]#1.00CD:127Jorge L [facility]c Western MarylandMessage from Medicareon 68-04-1409Ijrsims from Medicare [id number]#1.00CD:127Jorge L [facility] Western MarylandMonitor Recordon 08-78-9359Druisui Record [id number]#1.00CD:[address] Psychiatric Centeritor [id number]#1.00CD:127Nonelli Eugene [facility] and Hospitalitor Record [id number]#1.00CD:127JoselinBellevue HospitalPatient Education - Texton 46-35-6405Edmaibk Education - Text [place], [place] [facility] DISCHARGE INSTRUCTIONS: KNEE ARTHROSCOPY [...] your appointment. David Talamantes, DO [facility] [address] [place] [address] Reviewed: 10-08[facility] Community HospitalPreoperative Documentson 73-31-9370Ykkfanelbwcx Documents [id number]#1.00CD:127[facility] HospitalPreoperative [id number]#1.00CD:127 [facility] Community HospitalPrescriptions/Work Noteson 05-04-2020 Prescriptions/Work [id number]#1.00CD:127 [facility] Community HospitalCapillary Glucose POCon 84-10-6668Skxzlst [Mass/Vol]183 mg/zHQtgz85-27Qxcjdz57 Charles StreetComment on above: Performed By: #### [id number] #### [facility] [address], [place] [address]Vwvnepd [Mass/Vol]155 mg/yPGlps18-23Ybrdea[address] Comment on above:Performed By: #### [id number] #### [facility] [address], [place] [address]Ujlsktg [Mass/Vol]113 mg/pFBgwh67-17NhdapgFulton County Health Center Comment on above:Result Comment: Notified RN/MDPerformed By: #### [id number] ####[facility] [address] [place] [address] Glucose [Mass/Vol]112 mg/cNShvp10-73FlyrewFulton County Health CenterComment on above: Performed By: #### [id number] #### [facility] [address], [place] [address]Nhxtwxk [Mass/Vol]85 mg/qMRvhgof05-32WfxrxcFulton County Health CenterComment on above:Result Comment: Notified RN/MDPerformed By: #### [id number] #### [facility] [address], [place] [address]Rlbkwfh [Mass/Vol]59 mg/oPDkaccj97-73GgaliiFulton County Health CenterComment on above:Result Comment: Notified RN/MDPerformed By: #### [id number] #### [facility] [address], [place] [address]Sauvfzcgvixk Noteon 09-91-8562Baqxchjnlbvy NoteHOSPITAL REGULATIONS: ALL Positive Important Negative Findings [...] Ice to the left knee and elevate. hE Carter DO [facility] Dictated: 05/02/2020 #[id number] Typed: 05/02/2020 #[id number] cc: DO David Nieto D.O.[facility] Community HospitalComment on above:Result Comment: Electronically Signed By: Eh Carter DO\.br\Date and Time Signed: 05/03/20 10:27 ESTMonitor Recordon 14-46-5003Mjwktmq Record [id number]#1.00CD:127[facility] HospitalMonitor [id number]#1.00CD:127[facility] HospitalOperative Reporton 19-45-5024Pexwuwapd ReportDate of Surgery: 05/01/2020 SURGEON: David Talamantes [...] The patient's condition satisfactory David Talamantes D.O. [facility] Dictated: 05/01/2020 #[id number] Typed: 05/01/2020 #[id number] cc: Randa Lanier D.O.[facility] HospitalComment on above:Result Comment: Electronically Signed By: David Talamantes DO\.br\Date and Time Signed: 05/03/20 09:22 ESTProgress Note-Physicianon 07-87-6855Vwpfxuta Note-PhysicianAssessment/Plan 1. Other chest pain (R07.89: Other [...] mg/dL High (05/03/20 12:18:00) POC Device SN: [id number] (05/03/20 12:18:00) POC Username: JOSESITO BROWN (05/03/20 [...] 0.4 mg= 1 tab(s), SubLingual, q5min, PRN [place] 5/325 Tab, 1 tab(s), Oral, q4hr, PRN [...] Restasis 0.05% ophthalmic emulsion, 1 drop(s), Eye-Both, BIDNormalCommunity Healther Upmc Western MarylandComment on above:Result Comment: Electronically Signed By: JUN [...] mg/dL High (05/03/20 07:32:00) POC Device SN: [id number] (05/03/20 07:32:00) POC Username: POC Username (05/03/20 [...] to obtain her records from her primary senior policy analyst once 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 Continue [...] Push, q2hr, PRN L (more content not included)...[facility] HospitalComment on above:Result Comment: Electronically Signed By: Eleuterio VIGIL, John Marin.br\Date and Time Signed: 05/03/20 07:45 ESTCapillary Glucose POCon 82-02-5917Rrzjvuv [Mass/Vol]212 mg/hKZbdv43-29Tarltx57 [address] StreetComment on above: Performed By: #### [id number] #### [facility] [address], [place] [address]Bwmddmv [Mass/Vol]138 mg/lIRtth22-69Wwvopx[address] Comment on above:Performed By: #### [id number] #### [facility] [address], [place] [address]Nunuwrw [Mass/Vol]139 mg/uAMvck81-16Nhkdvl[address] Comment on above:Performed By: #### [id number] #### [facility] [address], [place] [address]Xzibyaq [Mass/Vol]105 mg/jXIrsr09-73Ltbkzp[address] Comment on above:Performed By: #### [id number] #### [facility] [address], [place] [address]Lyumhxn [Mass/Vol]233 mg/zIQdpu70-21TiuzzxFulton County Health Center Comment on above:Result Comment: Notified RN/MDPerformed By: #### [id number] ####[facility] [address] [place], [place] [address]Aqclw Panelon 37-32-8962Npaqgkxtilb [Mass/Vol]160 mg/fLUvsxmn845-512LjflibFulton County Health CenterComment on above:Performed By: #### [id number] #### [facility] [address], [place] [address]Xhdnmbwilxt in HDL [Mass/Vol]49 mg/dLInvalid Interpretation CodeFulton County Health CenterComment on above:Result Comment: HDL > or equal to 60 mg/dL: Low cardiovascular risk HDL < 40 mg/dL : High cardiovascular riskPerformed By: #### [id number] #### [facility] [address], [place] [address]Rjrowckxhlg in LDL [Mass/Vol]98 mg/dLNormal<=129F[facility] County Health CenterComment on above:Performed By: #### [id number] #### [facility] [address], [place] [address]Yqqwazttgmy in VLDL [Mass/Vol]12 mg/dLNormal7-40F[facility] County Health CenterComment on above:Performed By: #### [id number] #### [facility] [address], [place] [address]Rsnmxjudobcf [Mass/Vol]61 mg/dLNormal<=149F[facility] County Health CenterComment on above:Performed By: #### [id number] #### [facility] [address], [place] [address]Ivnebrq Recordon 22-89-0596Pnifuvp Record [id number]#1.00CD:127NormalFulton County Health CenterProgress Note-Physicianon 80-87-9849Mgefzxcj Note-PhysicianAssessment/Plan 1. Other chest pain (R07.89: Other [...] 29.6 pg (05/01/20 18:27:00) (more content not included)...[facility] HospitalComment on above: Result Comment: Electronically Signed By: JUN VIGIL, Nhung\.br\Date and Time Signed: 05/02/20 10:00 EDTTroponin 3 Hr.on 96-49-4237Vkriezta I.cardiac [Mass/Vol]3.60 pg/mLLow10.04-28.F[facility] County Health CenterComment on above: Result Comment: The 95% CI (Confidence Interval) PPV (Positive Predictive Value) for myocardial infarction in females is 38 pg/mL, in males 51 pg/mL. The results should be used in conjunction with clinical conditions of myocardial infarction. (Access High Sensitivity Troponin I Instructions For Use, [employer], January 2018)Performed By: #### [id number] #### [facility] [address], [place] [address]Dhrguzgr 6 Hr.on 21-44-2051Hwrrgpuy I.cardiac [Mass/Vol]3.90 pg/mLLow10.10-27.10F[facility] County Health CenterComment on above:Result Comment: The 95% CI (Confidence Interval) PPV (Positive Predictive Value) for myocardial infarction in females is 38 pg/mL, in males 51 pg/mL. The results should be used in conjunction with clinical conditions of myocardial infarction. (Access High Sensitivity Troponin I Instructions For Use, [employer], January 2018)Performed By: #### [id number] #### [facility] [address], [place] [address]Isalorwu 9 Hr.on 37-08-4654Hjkouqss I.cardiac [Mass/Vol]5.10 pg/mLLow10.10-27.10F[facility] County Health CenterComment on above:Result Comment: The 95% CI (Confidence Interval) PPV (Positive Predictive Value) for myocardial infarction in females is 38 pg/mL, in males 51 pg/mL. The results should be used in conjunction with clinical conditions of myocardial infarction. (Access High Sensitivity Troponin I Instructions For Use, [employer], January 2018)Performed By: #### [id number] #### [facility] [address], [place] [address]HD Carotid Duplex Bilateralon 53-78-8055KG Carotid Duplex BilateralExam Date/Time: 05/02/2020 13:21 EDT [...] Prox ECA (cm/sec): 199/15 Vert. Antegrade YesNormalFisher Upmc Western MarylandAuto Diffon 05-01-2020 Basophils/100 WBC (Bld)0.4 %Normal0.0-2.0F[facility] County Health CenterComment on above:Order Comment: Order Added by Discern Expert.Performed By: #### [id number], [id number], 2657284, 7785906 #### [facility] [address] [place] [address]Wzyokeqey/Leukocytes Auto (Bld) [Pure # fraction]0.0 E9/LNormal 0.0-0.2FGlenbeigh HospitalComment on above:Order Comment: Order Added by Discern Expert.Performed By: #### [id number], 95928280, 5835897, 5481057 #### [facility] [address] [place] [address]Swxkpwzhxwu/100 WBC (Bld)1.2 %Normal0.0-8.0F[facility] County Health CenterComment on above:Order Comment: Order Added by Discern Expert.Performed By: #### [id number], 10557561, 2174515, 5421226 #### [facility] [address] [place] [address]Eursclitaqj/Leukocytes Auto (Bld) [Pure # fraction]0.1 E9/L Normal0.0-0.5FGlenbeigh HospitalComment on above:Order Comment: Order Added by Discern Expert.Performed By: #### 0566657, 40369551, 3818692, 7022892 #### [facility] [address] [place] [address]Tjlvkfqhzxe/100 WBC (Bld)9.7 %Low14.0-50.0F[facility] County Health CenterComment on above:Order Comment: Order Added by Discern Expert.Performed By: #### 9096562, 77738262, 0858348, 0828563 #### [facility] [address] [place] [address]Wekpulroxlj/Leukocytes Auto (Bld) [Pure # fraction]1.0 E9/L Normal1.0-4.0F[facility] County Health CenterComment on above:Order Comment: Order Added by Discern Expert.Performed By: #### 6281826, 16029616, 0551773, 5863296 #### [facility] [address] [place] [address]Jlfpozdyf/100 WBC (Bld)4.2 %Normal4.0-14.0F[facility] County Health CenterComment on above:Order Comment: Order Added by Discern Expert.Performed By: #### 7705880, 22060481, 7886545, 2012781 #### [facility] [address] [place] [address]Cwzyyleug/Leukocytes Auto (Bld) [Pure # fraction]0.4 E9/LNormal 0.2-1.0[facility] CenterComment on above:Order Comment: Order Added by Discern Expert.Performed By: #### 2874885, 64273271, 4978117, 6374825 #### [facility] [address] [place] [address]Pqltmniqmiv/100 WBC (Bld)84.5 %High36.0-75.0F[facility] County Health CenterComment on above:Order Comment: Order Added by Discern Expert. Performed By: #### 2099471, 67927347, 3382655, 2513491 #### [facility] [address] [place] [address]Yxxsffmoyua/Leukocytes Auto (Bld) [Pure # fraction]8.9 E9/LHigh 2.0-7.5FGlenbeigh HospitalComment on above:Order Comment: Order Added by Discern Expert.Performed By: #### 0367124, 97235351, 5442322, 4086733 #### [facility] [address] [place] [address]RAOfi 06-20-5643Ukjxhmq [Mass/Vol]8.9 mg/dLNormal8.9-11.1FGlenbeigh HospitalComment on above:Performed By: #### 7640655, 23993813, 6049680, 8162329 #### [facility] [address] [place] [address] [place] [address]Mssav gap [Moles/Vol]10 mmol/LNormal6-16F[facility] County Health CenterComment on above:Performed By: #### 2007625, 24189824, 8153241, 3054205 #### [facility] [address], [place] [address]Vkhzqvnq [Moles/Vol]103 mmol/IYzazhg263-087McbkebFulton County Health CenterComment on above:Performed By: #### 1982309, 79001292, 6541100, 0953682 #### [facility] [address], [place] [address]KL[address] [Moles/Vol]24 mmol/UXqfabm03-74KppnxjFulton County Health Center Comment on above:Performed By: #### 9527304, 73416964, 1446924, 9692990 #### [facility] [address], [place] [address]Mhewltpohp [Mass/Vol]1.6 mg/dLHigh0.5-1.3FGlenbeigh HospitalComment on above:Performed By: #### 3423046, 29388890, 7470359, 4615468 #### [facility] [address], [place] [address]Sqrcdxk [Mass/Vol]167 mg/eFYmfhuz77-260VisnhhFulton County Health CenterComment on above:Result Comment: If this glucose result represents a fasting glucose, interpretation should refer tothe following reference range: 55-99 mg/dLPerformed By: #### 3891408, 13433238, 8173444, 4480728 #### [facility] [address], [place] [address]Dnuqejpri [Moles/Vol]3.9 mmol/LNormal3.5-5.3FGlenbeigh HospitalComment on above:Performed By: #### 2172733, 26720506, 4331024, 6466963 #### [facility] [address], [place] [address]Dpilln [Moles/Vol]133 mmol/KDmj144-707XirukrFulton County Health CenterComment on above:Performed By: #### 4097272, 47999141, 2077735, 8674997 #### [facility] [address], [place] [address]Fnac nitrogen [Mass/Vol]34 mg/dLHigh5-21F[facility] County Health CenterComment on above:Performed By: #### 3345407, 75365690, 2426110, 3570964 #### [facility] [address], [place] [address]Mxsk nitrogen/Creatinine [Mass ratio]21 No MiidoJilk69-17MmliilFulton County Health CenterComment on above:Performed By: #### 6048136, 93461149, 5776247, 9550747 #### [facility] [address] [place] [address]VNW w/ Auto Diffon 65-32-6832Udkqjxvnqhr distribution width (RBC) [Ratio]13.0 %Kebwvu43.9-14.2FGlenbeigh HospitalComment on above: Performed By: #### 4051624, 40740996, 7560312, 0901148 #### [facility] [address] [place] [address]Kgqwfajnhj (Bld) [Volume fraction]32.4 %Low34.0-46.0F[facility] County Health CenterComment on above:Performed By: #### 5550267, 45050834, 3805291, 0278335 #### [facility] [address] [place] [address]Grpktmejfz (Bld) [Mass/Vol]11.2 g/dLLow12.0-16.0F[facility] County Health CenterComment on above:Performed By: #### 0993829, 53585983, 9920920, 8632823 #### [facility] [address] [place] [address]LFW (RBC) [Entitic mass]29.6 aeVinpbi99.0-34.0F[facility] County Health CenterComment on above:Performed By: #### 5214633, 45361457, 3428597, 9396439 #### [facility] [address] [place] [address]FUSI (RBC) [Mass/Vol]34.6 g/sMElxrma02.4-36.0F[facility] County Health CenterComment on above:Performed By: #### 2128694, 38943564, 8890695, 7355885 #### [facility] [address] [place] [address]VYW (RBC) [Entitic vol]85.5 aXVndgkl42.0-100.0F[facility] County Health CenterComment on above:Performed By: #### 6631864, 66575364, 3512293, 6894868 #### [facility] [address] [place] [address]Toorlpyd mean volume (Bld) [Entitic vol]8.4 fLNormal6.4-10.8 [facility] Health CenterComment on above:Performed By: #### 4985586, 53279143, 1125215, 1096900 #### [facility] [address] [place] [address]Pinafwjgs (Bld) [#/Vol]242.0 E9/CPqtffh045.0-500.0F[facility] County Health CenterComment on above:Performed By: #### 3948681, 04694777, 5052779, 7983282 #### [facility] [address] [place] [address]AJL (Bld) [#/Vol]3.8 E12/LLow4.3-5.9[facility] Comment on above:Performed By: #### 7137856, 48007980, 5223723, 3333080 #### [facility] [address] [place] [address]YCK corrected for nucl RBC Auto (Bld) [#/Vol]10.5 E9/LNormal 4.0-11.0F[facility] County Health CenterComment on above:Performed By: #### 9370969, 72126626, 5632412, 4376134 #### [facility] [address], [place] [address]Ztthklluy Glucose POCon 80-72-3403Hnfnfmr [Mass/Vol]84 mg/dL Qitysg97-35GiyajzFulton County Health CenterComment on above:Result Comment: Repeat TestPerformed By: #### [id number] #### [facility] [address], [place] [address]Dmcnhrg [Mass/Vol]88 mg/tIXyodup75-01JvclljFulton County Health CenterComment on above:Result Comment: Repeat TestPerformed By: #### [id number] #### [facility] [address], [place] [address]Qcbikg Summary.on 18-70-3940Jokqbf Summary.CODING DATE: 05/01/2020 FINAL [facility] STATUS: Home (Routine DC) PAYOR: Medicare [...] for screening for other viral diseases [facility] APC STAT DESCRIPTION DOCTOR NAME DATE NOTE: The code number assigned matches the documented diagnosis and / or procedure in the patient's chart. However, the narrative phrase printed from the coding software may appear abbreviated, or result in slightly different terminology. Coded By: Gabriela Houston CphT Date Saved: 05/01/2020 08:36 amNormalFulton County Health CenterCoding Summary. CODING DATE: 04/25/2020 FINAL [facility] STATUS: Home (Routine DC) PAYOR: Medicare [...] Gabriela Houston CphT Date Saved: 04/25/2020 04:17 pmNormalFulton County Health CenterConsent for Treatmenton 02-20-1335Odcdbqu for Treatment [id number]#1.00CD:127NormUniversity Hospitals Beachwood Medical CenterConsent for [id number]#1.00CD:127 [facility] HospitalH&P Updateon 05-01-2020H&P Update [id number]#1.00CD:127NoBellevue HospitalMain OR PACU I Recordon 01-63-0376Bdla OR PACU I RecordPACU Phase I Document Type FT Summary Primary Physician: David Talamantes DO Finalized Date/Time: 05/01/20 18:04:55 Pt. Name: CLAUDIA ESTRELLA/Sex: 1950 Female Med Rec #: [id number] Physician: David Talamantes DO Financial #: [id number] Pt. Type: A Room/Bed: [place] [address] Admit/Disch: 05/01/20 11:43:14 - Institution: Case Times [...] Signatures Signed By: Ju Bates RN 05/01/20 18:04[facility] HospitalMain OR PACU II Recordon 08-83-6645Xtqn OR PACU II RecordPACU Phase II Document Type FT Summary Primary Physician: David Talamantes DO Finalized Date/Time: 05/01/20 20:09:08 Pt. Name: CLAUDIA ESTRELLA/Sex: 1950 Female Med Rec #: [id number] Physician: David Talamantes DO Financial #: [id number] Pt. Type: O Room/Bed: [place] [address] Admit/Disch: 05/01/20 11:43:14 - Institution: Case Times [...] Signatures Signed By: Yessy Curran RN 05/01/20 20:09[facility] HospitalMain OR Preoperative Recordon 31-94-1523Ebdr OR Preoperative RecordPreOp Document Type FT Summary Primary Physician: David Talamantes DO Finalized Date/Time: 05/01/20 14:45:06 Pt. Name: CLAUDIA ESTRELLA Katerin TolentinoB./Sex: 1950 Female Med Rec #: [id number] Physician: David Talamantes DO Financial #: [id number] Pt. Type: A Room/Bed: [place] [address] Admit/Disch: 05/01/20 11:43:14 - Institution: Case Times [...] Signatures Signed By: Viky Hernández RN 05/01/20 14:45Norm[facility] Recordon 17-35-4458Rxifjic [id number]#1.00CD:127 [facility] Record [id number]#1.00CD:127[facility] Radiologyon 62-18-7104Dpfkbkp Radiology [id number]#1.00CD:127[facility] Recordson 27-00-7087Pephkbh Records [id number]#1.00CD:127[facility] HospitalProess Note-Nurseon 83-25-7963Mjrmrwbj Note-NurseAt 1653--Gisela poct stated she needed a nurse in bay 12 stat. This nurse arrived to room. Patient s tated she has CP 10/ midsternal, heaviness. Jhoana RN at bedside as [...] voicemail. 1834--This nurse spoke with Dr. Carter ([place] consultant physician), informed Dr. Carter reason for admission and patient's room number. Dr. Aldridge at bedside at 170--Physician looked at patient EKG strip that was printed.[facility] HospitalProgress Note-Zmmnk2862: pt. medicated with 0.4mg Dilaudid per PACU [...] Krishnamurthy. pts. dtr. also at bedside and updated.NormalFulton County Health CenterTroponin 0 Hr.on 56-20-1836Dyplowyx I.cardiac [Mass/Vol]4.10 pg/mLLow10.10-27.10F[facility] County Health CenterComment on above:Result Comment: The 95% CI (Confidence Interval) PPV (Positive Predictive Value) for myocardial infarction in females is 38 pg/mL, in males 51 pg/mL. The results should be used in conjunction with clinical conditions of myocardial infarction. (Access High Sensitivity Troponin I Instructions For Use, [employer], January 2018)Performed By: #### [id number] #### [facility] [address], [place] [address]yQKSgq 28-47-2481RFE/1.73 sq M.predicted among blacks MDRD (S/P/Bld) [Vol rate/Area]39 mL/min/1.73 m2Low>=59[facility] Comment on above:Order Comment: Order added by Discern Expert.Result Comment: eGFR is race adjusted. AA=.Performed By: #### 3348558, 93678143, 9873853, 6483976 #### [facility] [address], [place] [address]GFS/1.73 sq M.predicted among non-blacks MDRD (S/P/Bld) [Vol rate/Area]32 mL/min/1.73 m2Low>=59F[facility] County Health CenterComment on above: Order Comment: Order added by Discern Expert.Result Comment: Chronic kidney disease could be indicated at eGFR's of less than 60 mL/min/1.73m2. Kidney failure is indicated at less than 15 mL/min/1.73m2.Performed By: #### 7248078, 52323489, 5511024, 8639453 #### [facility] [address] [place] [address]Jjzhpn Summary.on 56-69-7491Mqfmjn Summary.CODING DATE: 04/28/2020 FINAL [facility] STATUS: Home (Routine DC) PAYOR: Medicare [...] Gabriela Houston CphT Date Saved: 04/28/2020 09:19 amNLouis Stokes Cleveland VA Medical CenterOutpatient Surgery Discharge Instructionon 36-92-8016Qxvktuqrqj Surgery Discharge Instruction [address] [address] Patient Discharge Instructions PERSON INFORMATION Name: CLAUDIA [...] Follow up: With: Address: When: David Talamantes [address] [place], [place] [id number] [facility] (1) Comments: Keep scheduled appointment Type Location Start [facility] Surgery [facility] Surgical Services 05/01/2020 2:15 PM 05/01/2020 2:55 PM Confirmed Pharmacy Information: Thank you for choosing [facility] HERE ARE THE MEDICATION CHANGES THAT OCCURRED [...] tab Oral Daily. PATIENT EDUCATION INFORMATION Instructions: [place], [place] [facility] DISCHARGE INSTRUCTIONS: KNEE ARTHROSCOPY [...] is the result of (more content not included)...NormalFulton County Health CenterConsent for Procedure/Surgeryon 85-36-4574Zryjmje for Procedure/[id number]#1.00CD:127Normal [facility] CenterOutside Recordson 52-90-9536Kzayizd Records [id number]#1.00CD:127NormalFulton County Health CenterPriority Order-Trina 20-55-6005Zlzqzjja Order-STATCommentInvalid Interpretation [facility] Hospital [facility] ColumbusComment on above:Result Comment: Received Performed at: [facility] [address] [facility] [place] [id number] MD Garrison AnaghPerformed By: #### [id number] #### [facility] [address], [place] [address]FDGZ-HyH-9, NAAon 41-26-3804HILL-CoV-2 (COVID-19) RNA JAYASHREE+probe Ql (Resp)Not detectedInvalid Interpretation CodeNot DetectedFulton County Health CenterComment on above:Result Comment: This nucleic acid amplification test was developed and its performance characteristics determined by [employer]. Nucleic acid amplification tests include PCR and [...] detected) result in this assay. Performed at: [facility] [address] [facility] [place] [id number] MD Bladimir BrionesPerformed By: #### [id number] #### [facility] [address] [place], [place] [address]CL Chest 2 Viewson 35-30-9152XH Chest 2 ViewsExam Date/Time: 04/24/2020 09:34 EDT [...] Matias George M.D. Transcribed by: LUDIN Technologist: RRBNormalFulton County Health CenterBUNon 29-91-5883Fcou nitrogen [Mass/Vol]36 mg/dLHigh5-21[facility] Comment on above:Performed By: #### [id number], 0865978, 6350015, 4048024, 0861672, 6383844 ####[facility] [address] [place], [place] [address]DRE w/Indiceson 88-34-4537Yxduupvayth distribution width (RBC) [Ratio]13.0 %Uaabrb68.9-14.2FGlenbeigh HospitalComment on above: Performed By: #### 48540409, 3449461, 4007852, 9548938, 5441586, 2824961 ####[facility] [address] [place] [address] Hematocrit (Bld) [Volume fraction]34.1 %Abgbkk76.0-46.0[facility] Health CenterComment on above:Performed By: #### 57919741, 6966924, 3768022, 9197023, 4018137, 9588021 ####[address] [address]Hiiqaopqsb (Bld) [Mass/Vol]11.6 g/dLLow12.0-16.0[facility] County Health CenterComment on above:Performed By: #### [id number], 6223951, 1571827, 1455111, 1593287, 9987050 ####[address] [address]ZDW (RBC) [Entitic mass]29.5 huPautyx14.0-34.0[facility] CenterComment on above:Performed By: #### [id number], 6923773, 1963551, 6711762, 5899135, 9339990 ####[address] [address]QZEI (RBC) [Mass/Vol]34.1 g/xITngbbc94.4-36.0[facility] CenterComment on above:Performed By: #### [id number], 8561796, 4846562, 8234453, 6977799, 0400458 ####[address] [address]ZXD (RBC) [Entitic vol]86.5 qTVraipq10.0-100.0[facility] CenterComment on above:Performed By: #### 78818076, 1555923, 3014425, 7661755, 0137479, 7301473 ####[facility] [address] [place] [address]Sqgrkmay mean volume (Bld) [Entitic vol]9.4 fLNormal6.4-10.8 [facility] CenterComment on above:Performed By: #### [id number], 7319796, 2598098, 0801505, 2295307, 3905105 ####[place] [address] [place], [place] [address]Omhazqdww (Bld) [#/Vol]246.0 E9/L Cksjcp122.0-500.0[facility] CenterComment on above:Performed By: #### 90071464, 0747373, 2402775, 8806280, 5652488, 0935850 ####[address] [place], [place] [address]RTO (Bld) [#/Vol]3.9 E12/LLow 4.3-5.9[facility] CenterComment on above:Performed By: #### 94565157, 5491978, 0404807, 6109264, 8122088, 8554693 ####[place] [address] [address]EWI corrected for nucl RBC Auto (Bld) [#/Vol]10.0 E9/LNormal4.0-11.0[facility] CenterComment on above: Performed By: #### [id number], 3415496, 9148158, 0897744, 7333312, 4248152 ####[place] [address] [place] [address] Consent for Treatmenton 66-51-8111Fydtiuk for Treatment [id number]#1.00CD:127NormalFulton County Health CenterCreatinineon 10-08-5231Kwoaeulndt [Mass/Vol]1.6 mg/dLHigh0.5-1.3[facility] MarylandComment on above:Performed By: #### 50180405, 8237315, 2774829, 4743282, 9107383, 4429918 ####[address] [place], [place] [address]Avr Fastingon 14-32-2783Zlxzule [Mass/Vol]81 mg/dL Dzodhi34-13PwxlmlFulton County Health CenterComment on above:Performed By: #### [id number], 0033494, 7358147, 9824811, 5535878, 5450691 ####[address] [place], [place] [address]Quipfiv 22-09-9756Mofnp gap [Moles/Vol]13 mmol/LNormal6-16[facility] CenterComment on above: Performed By: #### 39245255, 9536890, 3149540, 5072691, 5243643, 3480887 ####[address] [address] Chloride [Moles/Vol]103 mmol/QGunyfm726-042ZfrhmiFulton County Health CenterComment on above:Performed By: #### 75291648, 7574958, 7568309, 6692394, 4832952, 9185693 ####[address] [address]BY4 [Moles/Vol]26 mmol/UFloqwt98-88JdrsjnFulton County Health CenterComment on above: Performed By: #### 44919156, 2910379, 7283163, 4297365, 4651473, 6806047 ####[address] [address] Potassium [Moles/Vol]3.9 mmol/LNormal3.5-5.3FGlenbeigh HospitalComment on above:Performed By: #### 37522876, 3898904, 8318461, 8392683, 0505802, 1437037 ####[address] [address]Qywfrg [Moles/Vol]138 mmol/NMowsnz201-873BjnmuiFulton County Health CenterComment on above:Performed By: #### 75576261, 7813377, 7303746, 4975296, 8909722, 6770528 ####[address] [place], [place] [address]Waihvfrsu Orderon 03-29-6943Kbjvdxmoi Order [id number]#1.00CD:127NoBellevue HospitaleGFRon 95-59-3255NID/1.73 sq M.predicted among blacks MDRD (S/P/Bld) [Vol rate/Area]39 mL/min/1.73 m2Low>=59F[facility] County Health CenterComment on above: Order Comment: Order added by Discern Expert.Result Comment: eGFR is race adjusted. AA=.Performed By: #### [id number], 1415946, 4015775, 7892637, 0129374, 8969330 ####[facility] [address] [place], [place] [address]DFY/1.73 sq M.predicted among non-blacks MDRD (S/P/Bld) [Vol rate/Area]32 mL/min/1.73 m2Low>=59F[facility] Health CenterComment on above: Order Comment: Order added by Discern Expert.Result Comment: Chronic kidney disease could be indicated at eGFR's of less than 60 mL/min/1.73m2. Kidney failure is indicated at less than 15 mL/min/1.73m2.Performed By: #### 77566046, 1052341, 7968651, 3568848, 6447490, 9547362 ####[facility] [address] [place], [place] [address]Uakixlhoj Orderon 14-16-7646Yicovzocd [id number]#1.00CD:[address] [place], [place] [address]Physician Orderon 13-14-4100Ucpywttnf Order [id number]#1.00CD:[address] [place] [address] Vital Signs Date TimeVital SignValuePerforming CsjygrvwxVcckzadl80-24-2636 11:32-0400Body wevtyu192.32 cmDaniel Perdomo DO Work Phone: [facility]10-21-2025 11:32-0400 Body mass index (BMI) [Ratio]26.1 kg/y6Ajxxwv Perdomo DO Work Phone: [phone] [place], [place] [address]10-21-2025 11:32-0400 Body jnwkojeharj87.3 [degF]John Perdomo DO Work Phone: [phone]10-21-2025 11:32-0400 Body rvecgj50.75 kgDaniel Perdomo DO Work Phone: [phone] [place], [place] [address]10-21-2025 11:32-0400 Diastolic blood uofblmjh90 mm[Hg]John Perdomo DO Work Phone: [phone])[address] [place], [place] [address]10-21-2025 11:32-0400 Heart rate76 /minDaniel Perdomo DO Work Phone: 1(754)[address] [place], [place] [address]10-21-2025 11:32-0400 Respiratory rate18 /minDaniel Perdomo DO Work Phone: [phone] [place], [place] [address]10-21-2025 11:32-0400 SaO2% (BldA) [Mass fraction]93 %John Perdomo DO Work Phone: [phone] [place], [place] [address]10-21-2025 11:32-0400 Systolic blood ojyjsqlf358 mm[Hg]John Perdomo DO Work Phone: [phone] [place], [place] [address]07-30-2025 11:37-0400 Body ptxige038.32 cmDaniel Perdomo DO Work Phone: [phone] [place], [place] [address]07-30-2025 11:37-0400 Body mass index (BMI) [Ratio]26.5 kg/k6Nqlxei Perdomo DO Work Phone: [phone] [place], [place] [address]07-30-2025 11:37-0400 Body lxyjml17.6 kgDaniel Perdomo DO Work Phone: [phone])[address]07-30-2025 11:37-0400 Diastolic blood kjhqnxni53 mm[Hg]John Perdomo DO Work Phone: [facility]07-30-2025 11:37-0400 Heart rate72 /aNthan Bustamantering DO Work Phone: [facility]07-30-2025 11:37-0400 Respiratory rate18 /Nathan Bustamantering DO Work Phone: [facility]07-30-2025 11:37-0400 SaO2% (BldA) [Mass fraction]95 %John Perdomo DO Work Phone: [facility]07-30-2025 11:37-0400 Systolic blood dqumocbi917 mm[Hg]John Perdomo DO Work Phone: [facility]03-04-2025 15:36-0500 Body jnyfja963.32 cmTrumbull [facility] Medical Center03-04-2025 15:36-0500Body mass index (BMI) [Ratio]25.6 kg/n3AtfdizojdTrumbull Regional Medical Center03-04-2025 15:36-0500Body agqkycyrxpm65.3 [degF][facility]03-04-2025 15:36-0500Body nbjbqy61.56 kgTrumbull Regional Medical Center03-04-2025 15:36-0500Diastolic blood bhyibfjn73 mm[Hg][facility] 09-03-2024 15:36-0500Heart rate73 /[facility] 09-03-2024 15:36-0500Respiratory rate18 /[facility] 09-03-2024 15:36-9178CjN5% (BldA) [Mass fraction]95 %[facility]03-04-2025 15:36-0500Systolic blood qgfurkcw647 mm[Hg][facility]11-11-2024 15:30-0500Body fquiap339.32 cmTrumbull [facility] Center11-11-2024 15:30-0500Body mass index (BMI) [Ratio]27.1 kg/m2 [facility]11-11-2024 15:30-0500Body vadviakzbcr53.5 [degF][facility]11-11-2024 15:30-0500Body drumrg32.96 kg [facility]11-11-2024 15:30-0500Diastolic blood pgwylecw42 mm[Hg][facility]11-11-2024 15:30-0500Heart rate72 /min [facility]11-11-2024 15:30-0500Respiratory rate16 /min [facility]11-11-2024 15:30-9079LuJ0% (BldA) [Mass fraction]95 %[facility]11-11-2024 15:30-0500Systolic blood mm[Hg][facility]07-08-2024 13:03-0400 Body fxksuu603.32 cmTrumbull [facility]07-08-2024 13:03-0400Body mass index (BMI) [Ratio]26.1 kg/r4YlfhwlzclTrumbull Regional Medical Center07-08-2024 13:03-0400Body pdosutzpkiz12.6 [degF][facility]07-08-2024 13:03-0400Body jysrnl27.75 kgTrumbull [facility] Center07-08-2024 13:03-0400Diastolic blood mtebcvdl67 mm[Hg][facility] 01-08-2024 13:03-0400Heart rate69 /[facility] 01-08-2024 13:03-0400Respiratory rate16 /[facility] 01-08-2024 13:03-8123SuB7% (BldA) [Mass fraction]96 %[facility]07-08-2024 13:03-0400Systolic blood ahoaroaw261 mm[Hg][facility]03-25-2024 15:52-0400Body rqoqda23.74 kgTrumbull [facility] Center03-25-2024 15:52-0400Diastolic blood dwurwrsz30 mm[Hg][facility]03-25-2024 15:52-0400Heart rate65 /[facility]03-25-2024 15:52-0400Systolic blood wutogkte450 mm[Hg][facility]11-28-2023 15:40-0500Body cwuqmn901.32 cmAbdul Mary Grace Other [employer] Other 524339-31-1300 15:40-0500Body mass index (BMI) [Ratio] 26.92 kg/l5Mjgyf Mary Grace Other [employer] Other 11-28-2023 15:40-0500Body elzajerbamz10 [degF][place] Mary Grace Other [employer] Other 080655-69-0995 15:40-0500Body xajqyi48.42 kgAbdul Mary Grace Other [employer] Other 566956-37-8764 15:40-0500Diastolic blood ifdngyck79 mm[Hg] [place] Mary Grace Other [employer] Other 11-28-2023 15:40-0500Respiratory rate18 /minAbdul Mary Grace Other [employer] Other 11-28-2023 15:40-4124ErQ8% (BldA) [Mass fraction]97 % [place] Mary Grace Other [employer] Other 11-28-2023 15:40-0500Systolic blood mm[Hg] [place] Mary Grace Other [employer] Other 07-31-2023 15:40-0400Body fabqbj899.32 cmAbdul Mary Grace Other [employer] Other 07-31-2023 15:40-0400Body mass index (BMI) [Ratio] 26.83 kg/u5Vnzyj Mary Grace Other [employer] Other 07-31-2023 15:40-0400Body gnkryxxzcoc90.7 [degF][place] Mary Grace Other [employer] Other 07-31-2023 15:40-0400Body nlagfu40.24 kgAbdul Mary Grace Other [employer] Other 07-31-2023 15:40-0400Diastolic blood hfuphyxp70 mm[Hg] [place] Mary Grace Other [employer] Other 07-31-2023 15:40-0400Respiratory rate18 /minAbdul Mary Grace Other [employer] Other 07-31-2023 15:40-6634SeG4% (BldA) [Mass fraction]98 % [place] Mary Grace Other [employer] Other 07-31-2023 15:40-0400Systolic blood btknfyzf193 mm[Hg] [place] Mary Grace Other [employer] Other 02-28-2023 14:40-0500Body .32 cmAbdul Mary Grace Other [employer] Other 02-28-2023 14:40-0500Body mass index (BMI) [Ratio] 26.29 kg/p0Hwdrn Mary Grace Other [employer] Other 02-28-2023 14:40-0500Body axpuhvbnlej41.6 [degF][place] Mary Grace Other [employer] Other 02-28-2023 14:40-0500Body surxkk78.06 kgAbdul Mary Grace Other [employer] Other 02-28-2023 14:40-0500Diastolic blood fplarozc65 mm[Hg] [place] Mary Grace Other [employer] Other 02-28-2023 14:40-0500Respiratory rate18 /minAbdul Mary Grace Other [employer] Other 02-28-2023 14:40-1701CmD6% (BldA) [Mass fraction]96 % [place] Mary Grace Other [employer] Other 02-28-2023 14:40-0500Systolic blood kixjxbez578 mm[Hg] [place] Mary Grace Other [employer] Other 11-28-2022 11:40-0500Body .32 cmAbdul Mary Grace Other [employer] Other 11-28-2022 11:40-0500Body mass index (BMI) [Ratio] 27.25 kg/o5Gbbpl Mary Grace Other [employer] Other 11-28-2022 11:40-0500Body wkjyzzwssxr91.2 [degF][place] Mary Grace Other [employer] Other 11-28-2022 11:40-0500Body dldfxa46.15 kgAbdul Mary Grace Other [employer] Other 11-28-2022 11:40-0500Diastolic blood hypnxodh40 mm[Hg] [place] Mary Grace Other [employer] Other 11-28-2022 11:40-0327XmO0% (BldA) [Mass fraction]97 % [place] Mary Grace Other [employer] Other 11-28-2022 11:40-0500Systolic blood rlquruja907 mm[Hg] [place] Mary Grace Other [employer] Other 07-28-2022 12:20-0400Body wyexjf404.32 cmAbdul Mary Grace Other [employer] Other 07-28-2022 12:20-0400Body mass index (BMI) [Ratio] 26.83 kg/l1Crrrr Mary Grace Other [employer] Other 07-28-2022 12:20-0400Body xekzxueuvuf34 [degF][place] Mary Grace Other [employer] Other 07-28-2022 12:20-0400Body .24 kgAbdul Mary Grace Other [employer] Other 07-28-2022 12:20-0400Diastolic blood yeljhadt18 mm[Hg] [place] Mary Grace Other [employer] Other 07-28-2022 12:20-0400Respiratory rate18 /minAbdul Mary Grace Other [employer] Other 07-28-2022 12:20-4677QhM2% (BldA) [Mass fraction]96 % [place] Mary Grace Other [employer] Other 07-28-2022 12:20-0400Systolic blood ildbetwa421 mm[Hg] [place] Mary Grace Other [employer] Other 998017-17-7617 16:00-0400Body .32 cmAbdul Mary Grace Other [employer] Other 210732-57-3948 16:00-0400Body mass index (BMI) [Ratio] 27.42 kg/q2Uceyf Mray Grace Other [employer] Other 03-21-2022 16:00-0400Body rihpbxuskha87.6 [degF][place] Mary Grace Other [employer] Other 03-21-2022 16:00-0400Body nixgbk05.51 kgAbdul Mary Grace Other [employer] Other 03-21-2022 16:00-0400Diastolic blood phfcgynq57 mm[Hg] [place] Mary Grace Other [employer] Other 207132-29-6570 16:00-0400Respiratory rate18 /minAbdul Mary Grace Other [employer] Other 03-21-2022 16:00-4500TsO0% (BldA) [Mass fraction]97 % [place] Mary Grace Other [email or web address] Other 03-21-2022 16:00-0400Systolic blood ultluode612 mm[Hg] [place] Mary Grace Other [employer] Other 11-16-2021 15:40-0500Body xwtdei601.32 cmAbdul Mary Grace Other [employer] Other 11-16-2021 15:40-0500Body mass index (BMI) [Ratio]26.5 kg/f9Twqwr Mary Grace Other [employer] Other 11-16-2021 15:40-0500Body apbbcphvaiz39.2 [degF][place] Mary Grace Other [employer] Other 11-16-2021 15:40-0500Body gwauxd10.52 kgAbdul Mary Grace Other [employer] Other 11-16-2021 15:40-0500Diastolic blood mm[Hg] [place] Mary Grace Other [employer] Other 11-16-2021 15:40-0500Respiratory rate18 /minAbdul Mary Grace Other [employer] Other 11-16-2021 15:40-2533ZkS4% (BldA) [Mass fraction]97 % [place] Mary Grace Other [employer] Other 11-16-2021 15:40-0500Systolic blood ujzwouvv356 mm[Hg] [place] Mary Grace Other [employer] Other Encounters Encounter DateEncounter TypeCare ProviderFacilityStart: 53-80-6357Vydwqhoagp and management of inpatientNICHOLAS Carl [facility] Start: 15-71-4397Gxbvmeyiyp and management of inpatientNICHOLAS Carl HIGUERA [facility]2025 End: 77-68-5880Joluqrkwhm and management of inpatientGEORGE [facility]2025 End: 43-78-9872dmgkhwwwgySGPLNIFHolzer Hospitaltart: 04-22-2025 End: 53-81-1472urrhebelvbIrmuul A Herring DO Work Phone: [phone]-QcxpemefuColumbia Regional Hospital SandStart: 04-22-2025 End: 60-35-9557Hmsxubp encounter procedureGeneva Jenkins MD-[facility] Work Phone: Start: 76-33-1720Vbk-patient / Non-visitGeneva Jenkins MD -[facility] Work Phone: Start: 04-15-2025 End: 92-71-3194arvggjoknlUQHXQSNHolzer Hospitaltart: 04-07-2025 End: 85-77-3817wopubuzbinSFEGQDSalem City Hospital Start: 03-23-2025 End: 92-14-7765JetywiLjucrama D Zahler DO Work Phone: [facility] EyeComment on above:Primary open angle glaucoma (POAG) of both eyes, mild stageStart: 01-29-2025 End: 53-10-5146vjlkfgcielFmwlwe A Herring DO Work Phone: [facility] Work Phone: Start: 01-29-2025 End: 37-24-2119Rjuvryf encounter procedureGeneva Jenkins MD-[facility] Neph[facility] [place] Work Phone: Start: 99-28-7703Iib-patient / Non-visitGeneva Jenkins MD -[facility] Work Phone: Start: 11-26-2024 End: 92-62-0939Cimgvn flowsheetJothania Blake Zahler DO Work Phone: [facility] NB OPHTStart: 11-26-2024 End: 17-40-2202Ifibms flowsheetJothania Blake Zahler DO Work Phone: [facility] NB OPHTStart: 11-26-2024 End: 72-02-2407mhfdyhaolcRXRKDTSD D ZAHLERNot AvailableStart: 09-16-2024 End: 62-76-6352xzsjlmbivxQRYUFC [facility] Start: 09-03-2024 End: 32-79-2835ygynmjqineHlihncwbiParma Community [facility] Work Phone: Start: 09-03-2024 End: 90-20-1696Twyztau encounter procedureAtrium Health Southpark Physician GroupFormerly [facility], [facility] Neph [facility] Work Phone: Start: 29-30-3046Frw-patient / Non-visitFirlifepoint hospitals Physician [facility] Work Phone: Start: 05-15-2024 End: 40-28-0941Mogpfh flowsheetMirta Cruzhler DO Work Phone: [facility] NB OPHTStart: 05-15-2024 End: 45-79-5610Noquvp flowsheetJonatlidia Blake Zahler DO Work Phone: [facility] NB OPHTStart: 05-15-2024 End: 17-56-2014ypvzpmcsqzBEFXVOLM D ZAHLERNot AvailableStart: 05-13-2024 End: 88-48-7143huurbttzjuDutazomjnParma Community General Hospital Work Phone: Start: 05-13-2024 End: 33-95-4870Dbasxwh encounter procedureAtrium Health Southpark Physician GroupNEP[facility] [place] Work Phone: Start: 53-12-5507Rni-patient / Non-visitAtrium Health Southpark [facility]ician [facility] Work Phone: Start: 01-08-2024 End: 09-97-6921irckqafepgPefkpkvcuSelect [facility] Work Phone: Start: 01-08-2024 End: 06-05-6055Dadwsew encounter procedureAtrium Health [facility]ician [facility] Nephrology Work Phone: Start: 68-65-2568Sdg-patient / Non-visitAtrium Health Southpark Physician [facility] Work Phone: Start: 09-25-2023 End: 45-00-5123sanvawdsxrAfyuziowlSelect Medical Specialty [facility] Work Phone: Start: 09-25-2023 End: 90-77-2921Imswzqz encounter procedureAtrium Health South[facility] Physician [facility] Nephrology Work Phone: Start: 09-09-2023 End: 33-55-5517Xogcqcdfs Result EncounterHilary Margareth Love MD Work Phone: noms External Department UnsolicitedStart: 09-09-2023 End: 03-66-4851Ikttopnym Result EncounterHilary Margareth Love MD Work Phone: noms External Department UnsolicitedStart: 08-08-2023 End: 22-13-4210vkzwdhftmhDugop Mary Grace Other [employer] Other Start: 92-62-1892Ywsmahzch encounterAbdul QadirFPG NephrologyStart: 07-11-2023 End: 29-87-6634jcasqdbghcPkmzu Mary Grace Other [employer] Other Start: 99-02-3510Dnxklchto encounterAbdul QadirFPG NephrologyStart: 05-30-2023 End: 00-62-9552muxecqlbeyUeprw Mary Grace Other [employer] Other Start: 24-54-7642Inzxsr outpatient visit 25 minutes [place] QadirFPG NephrologyStart: 05-23-2023 End: 75-86-3209skxnftefvaLyqaq Mary Grace Other [employer] Other Start: 94-15-6927Fsrlnwxfm encounterAbdul QadirFPG NephrologyStart: 01-30-2023 End: 23-29-6249cfqloalssjFhdxj Mary Grace Other [employer] Other Start: 17-94-4779Tqhrvygjk by computer linkAbdul Mary Grace FPG NephrologyStart: 35-42-4318Ogwsjy outpatient visit 25 minutesAbdul QadirFPG NephrologyStart: 10-27-2022 End: 40-65-6868qfniznrosxAkqoi Mary Grace Other [employer] Other Start: 26-76-7808Srfnfaoyx encounterAbdul QadirFPG NephrologyStart: 10-26-2022 End: 64-06-3259hoiboidcuiIL JOHN PERDOMOFacility:H3Oqcxw: 08-30-2022 End: 45-37-8716jjhyhxlophFiwsj Mary Grace Other [employer] Other Start: 00-98-9620Itcapg outpatient visit 25 minutes [place] QadirFPG NephrologyStart: 08-24-2022 End: 23-64-7971twzdslnxgqAV DANIEL A HERRINGFacility:N5Vokmk: 08-23-2022 End: 46-75-6195kjbovozmurYHAOG QADIRFacility:H8Ijmyx: 06-13-2022 End: 14-34-4872vjyzbgxfytLQ KARTHIK GERMAINRBELFacility:U8Vbytj: 06-10-2022 End: 52-09-1571ahvggfwmizAI KARTHIK GERMAINRBELFacility:X9Wokdk: 06-02-2022 End: 12-49-1469pvxdzqyexaZF KARTHIK FELIPEacility:P7Odqjc: 06-01-2022 End: 89-63-0119trytfgxanrPK JOHN BUSTAMANTERINGFacility:V5Phjvo: 05-30-2022 End: 33-75-4143auuykonjtnScdpf Mary Grace Other [employer] Other Start: 67-46-7530Akinok outpatient visit 25 minutes [place] QadirFPG NephrologyStart: 05-27-2022 End: 11-01-9277iovraccqqsCW DANIEL A HERRINGFacility:M2Upmee: 05-23-2022 Telephone encounterAbdul QadirFPG NephrologyStart: 05-23-2022 End: 75-38-5976jbiwmtyeyhWM JOHN Mcdonough [employer] Other Start: 05-14-2022 End: 06-40-4211ajupktviubUYKIWJZ BOESFacility:J9Ilvzk: 05-12-2022 End: 86-43-7127tuxnosequtRtamp Mary Grace Other [employer] Other Start: 78-07-8239Yjccstlxc encounterAbdul QadirFPG NephrologyStart: 05-11-2022 End: 36-12-0309dqnbwnxaeaVBFOLRZ BOESFacility:V5Pycyo: 03-17-2022 End: 94-86-6487owmaswtrmlOS JOHN PERDOMOFacility:V0Elwtl: 01-27-2022 End: 41-12-5259nsyozurjngXvybq Mary Grace Other [employer] Other Start: 98-56-5875Hchzka outpatient visit 25 minutes [place] QadirFPG NephrologyStart: 01-21-2022 End: 81-67-1166nqapydporlYU JOHN A HERRINGFacility:X6Msslz: 01-17-2022 End: 17-55-6206yajqnmfkksUK JOHN A HERRINGFacility:P6Ftrgx: 01-13-2022 End: 28-33-4233kdxuintfkvHeoog Mary Grace Other [employer] Other Start: 29-85-3124Lrknixvze encounterAbdul QadirFPG NephrologyStart: 49-17-7305Bgepwsqcx encounterAbdul QadirFPG NephrologyStart: 12-16-2021 End: 45-83-3841gqcqydepeeTG JOHN Mcdonough [employer] Other Start: 12-09-2021 End: 64-73-7738qofnnagujqQYTRUU HERRINGFacility:UTMCStart: 12-08-2021 End: 09-52-6457izoswvxgkbWgaer Mary Grace Other [employer] Other Start: 39-54-6849Cjolfvejs encounterAbdul QadirFPG NephrologyStart: 12-07-2021 End: 41-51-2056pvadtximkwFF JOHN A HERRINGFacility:Q0Jzozq: 12-06-2021 End: 25-06-3478hwhlqaicmpTI JOHN A HERRINGFacility:H3Ngffl: 12-01-2021 End: 59-81-8022vhduwbkatoED JOHN A HERRINGFacility:Y7Tgznh: 11-19-2021 End: 80-10-3715zssmabzfuvEP JOHN A HERRINGFacility:U8Cuxer: 11-01-2021 End: 16-76-9621pfojvdkdksUztur Mary Grace Other [employer] Other Start: 15-32-4581Jyojrdila by computer linkAbdul Mary Grace [facility] NephrologyStart: 10-28-2021 End: 92-77-8034gfjwbgvclvLcuof Mary Grace Other [employer] Other Start: 43-22-0868Cdcfkjnpd encounterAbdul QadirFPG NephrologyStart: 10-13-2021 End: 71-29-7117yytjngdpbiDdegi Mary Grace Other [employer] Other Start: 13-84-5871Rxfvblcut by computer linkAbdul Mary Grace [facility] NephrologyStart: 10-06-2021 End: 17-79-2867bbppenogntQurwl Mary Grace Other [employer] Other Start: 43-18-3725Rjxlczlwp encounterAbdul QadirFPG NephrologyStart: 09-21-2021 End: 90-53-8668bnqgzsoznoMinoa Mary Grace Other [employer] Other Start: 31-24-6032Cdswfnute encounterAbdul QadirFPG NephrologyStart: 09-20-2021 End: 32-18-3203laofmeqklzSoctj Mary Grace Other [employer] Other Start: 00-37-3155Ebgxar outpatient visit 25 minutes [place] QadirFPG NephrologyStart: 08-01-2021 End: 15-58-8550oxbfbpdxgxDptvj Mary Grace Other [employer] Other Start: 85-68-1680Ccdqgagwc by computer linkAbdul Mary Grace [facility] NephrologyStart: 07-18-2021 End: 11-70-6138dmjmsysxisKrohg Mary Grace Other [employer] Other Start: 52-92-2448Icepxudiu by computer linkAbdul Mary Grace [facility] NephrologyStart: 05-18-2021 End: 87-56-6719hgfncpqyjdQhjuv Mary Grace Other [facility] Other Start: 39-32-2965Cpyywp outpatient visit 25 minutes [place] QadirFPG [facility]phrology Procedures DateProcedureProcedure DetailPerforming ClinicianStart: 11-78-8369Xxeqai-up visitFollow-upMELINDA TUCKERStart: 42-46-0465Pyvhzp field xm uni/bi w/interp extended examJothania Teran DO Work Phone: Start: 11-26-2024 End: 58-15-1528Zyvlu medical xm&eval comprhnsv estab pt 1/>Corneal scar, right eyeMirta Teran DO Work Phone: comment on above:Corneal scar, right eye (Primary Dx); Dry eyes; 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 (CMS/HCC); Primary open angle glaucoma (POAG) of both eyes, mild stageStart: 05-15-2024 End: 55-50-7079Czervszmryeg ophthalmic imaging optic nerveMirta Teran DO Work Phone: Start: 05-15-2024 End: 94-81-6183Zcdlh medical xm&eval comprhnsv estab pt 1/>Primary open angle glaucoma (POAG) of both eyes, mild stage (CMS/HCC)Mirta Teran DO Work Phone: comment on above:Primary open angle glaucoma (POAG) of both eyes, mild stage (CMS/HCC) (Primary Dx); 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 (CMS/HCC); Corneal scar, right eye; Dry eyesStart: 01-64-5495Dc soft tissue head & neck real time imge Philip Love MD Work Phone: Plan of Treatment DateCare ActivityDetailAuthorStart: 50-14-5635Jxjerpzu screeningDiabetes: Retinopathy ScreeningNOMN HealthcareStart: 06-04-2025 End: 84-28-8273Oxfxwde encounter tktcpsfxy85/03/2025 1:15 PM EST Office Visit [facility] [address] [place] [address] Mirta Teran DO [address] [place] [address] [facility] EyeStart: 05-15-2025 Glaucoma screeningDiabetes: Retinopathy ScreeningNOMN HealthcareStart: 36-43-4264Uawkbqwyx vaccinationCASTLEVIEW HOSPITAL HealthcareStart: 11-26-2024 End: 78-22-9419Bvocdzw encounter procedureNOMS NB OPHTComment on above:Arrived Start: 15-62-3914Vatsyzzbb vaccinationInfluenza Vaccine (#1)[facility] Start: 03-96-5715Oflffqlmib A1c measurementDiabetes: Hemoglobin K3VRTBA HealthcareStart: 88-16-4036Jmosgkwve for malignant neoplasm of breastMammogram [facility] HealthcareStart: 25-17-8539Dbrowqqkiddl Vaccine: 65+ Years (1 of 2 - PCV) Pneumococcal Vaccine: 65+ Years (1 of 2 - PCV)[facility] HealthcareStart: 1970 Urine screening for proteinDiabetes: Urine Protein ScreeningCASTLEVIEW HOSPITAL Healthcare Start: 50-55-5556Lxqkdioldwcz Vaccine: 65+ Years (1 of 2 - PCV)Pneumococcal Vaccine: 65+ Years (1 of 2 - PCV)[facility] HealthcareStart: 1951Medicare Annual Wellness (AWV)Medicare Annual Wellness (AWV)[facility] HealthcareStart: 1951 Screening for malignant neoplasm of colonNOMN HealthcareImmunofixation for Urine [facility] 1999 panel - Serum or Plasma [facility] Center[facility] function 1999 panel - Serum or Plasma [facility] Center[facility] function 1999 panel - Serum or Plasma [facility] CenterRen[facility] function 1999 panel - Serum or Plasma [facility] CenterRen[facility] function 1999 panel - Serum or Plasma [facility] CenterRen[facility] function 2000 panel - Serum or Plasma [facility] Immunizations Immunization DateImmunizationNotesCare ProviderFacilityNEGATED: Highlighted row has not occurred!69-77-5153uhnzkeabz, high dose seasonal, preservative-free Patient ObjectionAbdjennifer Mary Grace Other [facility] Other Payers DatePayer CategoryPayerPolicy [id number] Health InsuranceMEDICAL MUTUAL [id number] 2016MedicareMEDICARE .[id number] [id number] [id number] 840.1.664785.3.57[id number] .1.495860.3.57[id number] 2.16.840.1.643070.3.57[id number] 2.16.840.1.687909.3.57[id number] 2.16.840.1.676098.3.57[id number] 2.16.840.1.353473.3.57[id number] 2.16.840.1.456317.3.57[id number] 2.16.840.1.049473.3.57[id number] 2.16.840.1.129598.3.57[id number] 2.16.840.1.712129.3.57[id number] 2.16.840.1.798070.3.579.2.2[id number] 2.16.840.1.398092.3.579.2.[id number] 2.16.840.1.987959.3.579.2.65641-94-6621Btvjzid7884377 2.16.840.1.978080.3.579.2.2[id number] 2.16.840.1.173944.3.579.2.04178-48-4450Mrbmpkf5789954 2.16.840.1.973914.3.579.2.[id number] 2.16.840.1.494272.3.579.[id number] 2.16.840.1.713257.3.579.2.6[id number] 2.16.840.1.611385.3.579.2.00294-46-4839Gihvxgg8806009 2.16.840.1.242787.3.579.2.63464-29-4870Jchvtna6876143 2.16.840.1.643241.3.57[id number] 2.16.840.1.961467.3.57[id number] 2.16.840.1.482278.3.579.2.1259Self-paySelf Pay [id number] [id number] Social History DateTypeDetailFacilityUnknown if ever smokedButternut [employer] Other Start: 58-88-4422Dqg Assigned At [facility] [employer] Other Start: 11-23-2017 End: 98-89-2230Fsitfdv smoking status NHISNever smoked tobacco (finding) [facility]: 60-12-1953Mvu [facility]igned At [facility]: 05-13-2024 End: 95-62-3764OvqErtizc (finding)[facility]: 02-00-6150Qmjqncq use and exposureSmokeless tobacco non-userNOMS Healthcare Start: 61-44-2511Xyxwlkyuk beverage intakeLifetime non-drinker (finding)[facility] HealthcareStart: 04-47-3511Qentjxh of Social functionCASTLEVIEW HOSPITAL HealthcareStart: 97-38-4820Rizuxgz Commentcaffeine intake: 1-2 cups per day soda/pop 1-2 cans per weekCASTLEVIEW HOSPITAL HealthcareStart: 04-49-1085Qoutjr identityIdentifies as female gender (finding)[facility] HealthcareStart: 16-44-9700RmeRwcyrgZFED Healthcare Clinical Notes 04-27-2020 to 05-04-2025 Note Date & LvyzAhyuPawtibzt67-54-9350 NotePt has DC orders. SS consult for CHF. Trudy RN talked to pt, she's had HF for around 6 years and is confident in managing everything herself.[facility]11-02-2025 Note Attestation signed by Jazzmine Kelsey MD at 05/04/2025 12:20 PM I personally saw and examined the patient [...] Faculty, Division of Nephrology, Department of Medicine, [facility]. Nephrology Progress Note Patient : Claudia Estrella; 75 y.o. Location: 3186/3186-01 Attending: Eh Higuera MD Admit Date: 05/01/2025 Hospital Day: 3 Reason for Consult: ORI on CKD stage 4, diuretic management. Subjective: History of present illness: Claudia Estrella is a 75 y.o. female with PMH significant for CKD stage IV (baseline creatinine appears to be around 2-2.4), type 2 diabetes mellitus, and essential hypertension who was admitted to [facility] as a transfer from [facility] on 05/01/2025 after she initially presented with increased shortness of breath and swelling in the abdomen/lower extremities concerning for CHF exacerbation. Of note, patient had a cardiac catheterization back in 2020 which demonstrated severe three-vessel disease. Following admission, cardiology was consulted and patient underwent right heart catheterization demonstrating mean pulmonary arterial pressure of 42, and a wedge pressure of 31. Patient also had echocardiogram which demonstrated EF of 63%. Labs on admission demonstrated creatinine 2.85/BUN 58. Nephrology service was consulted for management of ORI [...] 57.6 kg Vital signs: Temperature: Temp: 36.8 ???C (98.2 ???F) TMax: Temp (24hrs), Av.6 ???C (97.9 ???F), Min:36.3 ???C (97.3 ???F), Max:36.8 ???C (98.2 ???F) Respirations: Resp: 16 Pulse: Heart Rate: 72 [...] Dose Status allopurinol (Zyloprim) 100 mg tablet [id number] TAKE (more content not included)... [facility]11-02-2025 Note Attestation signed by Luis Carrero MD at 05/04/2025 7:17 PM By using the attestations below, the signing [...] be an additional personal documentation from me. Cardiology Progress Note Subjective 05/04: Seen and [...] Denies chest pain or dyspnea. Discomfort at [facility] site with bruising on right neck. Feels a lot better. Awaiting nephro input. Subjective: Claudia Estrella is a 75 y.o. female with a past medical history notable for hypertension, HFpEF, CAD s/p CABG 2020, hyperlipidemia, CKD 4, and diabetes who presents from [facility] cardiology clinic due to worsening dyspnea on [...] size and function. Mild biatrial dilation. Grade 2 diastolic dysfunction with elevated filling pressures. Mild TR. [...] Temp Temp src Pulse Resp SpO2 Weight 05/04/25442 -- -- -- -- -- -- 57.6 kg (127 lb) 05/04/257 -- -- -- -- -- -- 57.8 kg (127 lb 6.4 oz) 05/04/25 0400 156/51 36.6 ???C (97.9 ???F) Temporal 71 16 99 % -- 05/04/25 0000 (!) 139/47 36.7 ???C (98.1 ???F) 70 18 96 % -- 05/03/25 2131 144/57 -- -- -- -- -- -- 05/03/252018 150/57 36.7 ???C (98.1 ???F) Temporal 73 20 98 % -- 05/03/252014 150/57 -- -- 73 21 97 % -- 05/03/25 1610 (!) 140/48 36.6 ???C (97.8 ???F) Temporal 72 19 95 % -- 05/03/25 1210 144/75 36.3 ???C (97.3 ???F) 77 18 93 % -- 05/03/25 0815 143/70 36.4 ???C (97.5 ???F) 72 16 97 % -- Physical Examination: [...] Value Ventricular Rate 74 Atrial Rate 74 GA Interval 168 QRS DURATION 68 QT Interval 410 QTC CALCULATION(BAZETT) 455 P [place] 64 R-Charl[place] 15 T Wave [place] 103 Impression Normal sinus rhythm Abnormal QRS-T angle, consider primary T wave abnormality Abnormal ECG When compared with ECG of 14-JUL-2020 06:44, ST no longer elevated in Lateral Nonspecific T wave abnormality now evident in Lateral Confirmed by Chela CARRERO, LUIS Salvador ([id number]) on 05/02/2025 4:37:20 PM No results found for: CKTOTAL , CKMB , CKMBINDEX , TROPONINI Complete Echo (TTE) w/wo Imaging (more content not included)...[facility]11-01-2025 Note05/03/25 1305 Home Oxygen Therapy Evaluation Home Oxygen Therapy No Pulse Oximetry on room air at Rest 92 Pulse Ox on room air while walking 89 Patient Qualification for home oxygen Does not qualify for home oxygen this visit $ Pulse Oximetry Multiple Patient does not qualify for home oxygen this visit.[facility]11-01-2025 Note Attestation signed by Eh Higuera MD at 05/04/2025 11:46 AM By using the attestations below, the signing [...] We do have final recommendations from nephrology. Med-7 Daily Progress Note - 05/03/2025 11:32 AM; Room: [facility]/3186- Admission: 05/01/2025 5:55 PM; Length of stay: 2 days Code Status: Full Code Discharge Destination: TBD Discharge planning: TBD Overview Patient is seen for evaluation and management of heart failure exacerbation. Claudia Estrella is an 75 y.o. female who came from [facility] with prior history of hypertension and [...] She was advised to come to [facility] for CHF exacerbation. Subjective The patient was [...] has no shortness of breath at rest or when she is getting up from the bed to use the bathroom. Physical Exam Visit Vitals BP 143/70 (BP Location: Right arm, Patient Position: Lying) Pulse 72 Temp 36.4 ???C (97.5 ???F) (Temporal) Resp 16 Intake/Output Summary (Last 24 [...] baseline. Estimated body mass index is 28.42 kg/m??? as calculated from the following: Height as of this encounter: 1.422 m (4' 8 ). Weight as of this encounter: 57.5 kg (126 lb 12.2 oz). Active Inpatient Problems Principal Problem: Acute on chronic heart failure with preserved ejection fraction (HFpEF) ([facility]) Active Problems: Hypertensive disorder Stage 4 chronic kidney disease ([facility]) Type 2 diabetes mellitus ([facility]) Assessment and Plan Acute on chronic heart [...] - Continue Bumex 3 mg IV BID, toshia (more content not included)...[facility]11-01-2025 Note Attestation signed by Luis Carrero MD at 05/03/2025 2:33 PM By using the attestations below, the signing [...] be an additional personal documentation from me. Cardiology Progress Note Subjective 05/03: Patient seen and examined at bedside this morning. Afebrile and hemodynamically stable with noted elevations in BP, satting well on 1 L O2 via NC. 725 cc UOP over the past 24 hours. Creatinine 2.76 (2.77), and hemoglobin 8.8 (9). No acute events overnight. Denies chest pain or dyspnea. Discomfort at [facility] site with bruising on right neck. Feels a lot better. Awaiting nephro input. Subjective: Claudia Estrella is a 75 y.o. female with a past medical history notable for hypertension, HFpEF, CAD s/p CABG 2020, hyperlipidemia, CKD 4, and diabetes who presents from [facility] cardiology clinic due to worsening dyspnea on [...] size and function. Mild biatrial dilation. Grade 2 diastolic dysfunction with elevated filling pressures. Mild TR. [...] Resp SpO2 Weight 05/03/25 0815 143/70 36.4 ???C (97.5 ???F) Temporal 72 16 97 % -- 05/03/25 0513 -- -- -- -- -- -- 57.5 kg (126 lb 12.2 oz) 05/03/25 0000 153/58 36.1 ???C (97 ???F) Temporal 69 17 97 % -- 05/02/25 2214 160/59 -- -- -- -- -- -- 05/02/252009 148/53 36.1 ???C (97 ???F) Temporal 80 23 97 % -- 05/02/25 [...] 97 % -- 05/02/25 1245 156/57 36.2 ???C (97.2 ???F) -- 76 21 96 % -- 05/02/25 [...] Value Ventricular Rate 74 Atrial Rate 74 GA Interval 168 QRS DURATION 68 QT Interval 410 QTC CALCULATION(BAZETT) 455 P [place] 64 R-Charleston 15 T Wave [place] 103 Impression Normal sinus rhythm Abnormal QRS-T angle, consider primary T wave abnormality Abnormal ECG When compared with ECG of 14-JUL-2020 06:44, ST no longer elevated in Lateral Nonspecific T wave abnormality now evident in Lateral Confirmed by Chela CARRERO, LUIS Olson (more content not included)...[facility]11-01-2025 NoteCase was discussed with the JOSUE on 05/01/2025. I agree with the history, physical, assessment, and plan of care. I discussed the findings and therapeutic plan. I agree with the documentation, except for any updates below. Shima Francois MDUnRiverview Health Institute10-31-2025 Note Attestation signed by Eh Higuera MD at 05/06/2025 8:05 AM By using the attestations below, the signing [...] documentation from me. Additional Comments: See H&P. Med-7 Daily Progress Note - 05/02/2025 2:35 PM; Room: 318/3186-01 Admission: 05/01/2025 5:55 PM; Length of stay: 1 days Code Status: Full Code Discharge Destination: TBD Discharge planning: TBD Overview Patient is seen for evaluation and management of heart failure exacerbation. Claudia Estrella is an 75 y.o. female who came from [facility] with prior history of hypertension and [...] She was advised to come to [facility] for CHF exacerbation. Subjective Patient was seen and examined at bedside. Afebrile, hemodynamically stable, starting well on 2 L per nasal cannula. Patient reports she does not use oxygen at home but believes it will help her with her daily functioning. Patient reports she was recently discharged from [facility] due to a CHF exacerbation. She states her diuretic dose was reduced due to worsening kidney function but once she returned home she started retaining fluids and became progressively more short of breath. She notes she retains fluids mostly in her abdomen and lower extremities. Physical Exam Visit Vitals BP 171/89 Pulse 73 Temp 36 ???C (96.8 ???F) (Temporal) Resp 16 Intake/Output Summary (Last 24 [...] baseline. Estimated body mass index is 30.99 kg/m??? as calculated from the following: Height as of this encounter: 1.422 m (4' 8 ). Weight as of this encounter: 62.7 kg (138 lb 3.7 oz). Active Inpatient Problems Principal Problem: Acute on chronic heart failure with preserved ejection fraction (HFpEF) ([facility]) Active Problems: Hypertensive disorder Stage 4 chronic kidney disease ([facility]) Type 2 diabetes mellitus ([facility]) Assessment and Plan Acute on chronic heart [...] CABG 2020 - Three-vessel coronary artery disease vis (more content not included)... [facility]10-31-2025 NoteCase was discussed with the JOSUE on 05/01/2025. I agree with the history, physical, assessment, and plan of care. I discussed the findings and therapeutic plan. I agree with the documentation, except for any updates below. Shima Francois MDUnRiverview Health Institute10-31-2025 NoteMonitor kidney functions Avoid nephrotoxic drugs Appreciate nephrology recommendationsUnRiverview Health Institute 05-02-2025 NoteResume home medicationsUnRiverview Health Institute 05-02-2025 NoteGlucose management protocol Sliding scale Hypoglycemia managementUnRiverview Health Institute10-31-2025 NoteStart Bumex 2mg IV BID Weigh patient daily Fluid restriction Cardiology consult NPO at midnight for possible right heart cathUnRiverview Health Institute 05-02-2025 NoteHospital Medicine History and Physical 05/02/2025 12:34 AM THE HOSPITALIST TEAM PREFERS TO USE [employer] CHAT FOR NON-URGENT COMMUNICATION 7AM-7PM. IF I DO NOT RESPOND WITHIN 20 MINUTES OR URGENT MATTERS, PLEASE CALL THROUGH THE CLINICAL FELLOW. FROM 7PM-7AM, PLEASE PAGE [phone](COVR). Chief Complaint SOB History of Present Illness Claudia Estrella is an 75 y.o. female who came from [facility] with prior history of hypertension and [...] She was advised to come to [facility] for CHF exacerbation. Review of System and Physical Exam Temp: [36 ???C (96.8 ???F)] 36 ???C (96.8 ???F) Heart Rate: [71-73] 71 Resp: [20-23] 20 [...] heart failure with preserved ejection fraction (HFpEF) ([facility]) Start Bumex 2mg IV BID Weigh patient daily Fluid restriction Cardiology consult NPO at midnight for possible right heart cath Hypertensive disorder Resume home medications Stage 4 chronic kidney disease ([facility]) Monitor kidney functions Avoid nephrotoxic drugs Appreciate nephrology recommendations Type 2 diabetes mellitus ([facility]) Glucose management protocol Sliding scale Hypoglycemia management [...] this hospital stay by a member of [facility]. Past Medical History Medical History[1] [...] Risk (05/01/2025) Overall Financial Resource Strain (CARDIA) D (more content not included)...[facility]10-30-2025 NoteUT [facility]iology - [facility] Subjective Chief Complaint Patient presents with Follow-up Patient is here today for a 2 week follow up. Patient states she is not doing well, Patient is very SOB. Patient has been unable to eat, and vomiting up her medication. Patient states when she exhales she hears a whistling. Coronary Artery Disease Congestive Heart Failure Hypertension Heart Murmur Hyperlipidemia Shortness of Breath SOB/MCALLISTER increased over the last 3 to 4 days. Patient pulse ox at home has been 84 with movement and 94 with sitting. Patient is unable to lay [...] herpes simplex Stage 4 chronic kidney disease ([facility]) Type 2 diabetes mellitus ([facility]) Chronic diastolic heart failure ([facility]) Benign essential hypertension Glaucoma Goiter Orthostatic hypotension Corneal scar, right eye Dry eyes 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 ([facility]) Primary open angle glaucoma (POAG) of both eyes, mild stage Hyperlipidemia Hyperuricemia Hypokalemia Microscopic hematuria Nontoxic multinodular goiter Secondary hyperparathyroidism Acute kidney injury Acute on chronic heart failure with preserved ejection fraction (HFpEF) ([facility]) Family History Problem Relation Name Age of [...] seems to be better. She has ongoing orthopne (more content not included)...[facility]10-14-2025 NoteUT [address] [facility] Subjective Chief Complaint Patient presents with Follow-up Patient is here today for a follow up [facility] admission. Patient states she feels better [...] She is well-developed. She is not ill-appearing. COLEMANT: Head: Normocephalic and atraumatic. Nose: Nose normal. Eyes: General: No scleral icterus. Pupils: Pupils are equal, round, and reactive to light. Neck: Thyroid: No thyromegaly. Vascular: No JVD. Cardiovascular: Rate and Rhythm: No (more content not included)...[facility]10-06-2025 NoteUT [facility] Subjective Claudia Estrella is a [...] warm and dry. Neurologi (more content not included)...[facility] 01-29-2025 Evaluation note* Diagnosis Onset Date Resolution [...] diabetic chronic kidney diseaseacuteJuly 2024 11:35amAcute kidney injuryacuteOctober 2024 11:30amAnemia of renal diseaseacuteOctober 2024 11:30amCKD (chronic kidney disease) stage 4, GFR 15-29 ml/minacute April 22, 2025 11:30amHyperlipidemiaacuteOctober 2024 11:30am Hypertensive chronic kidney disease with stage 1 through stage 4 chronic kiacute April 22, 2025 11:30amHyperuricemiaacuteOctober 2024 11:30am HypokalemiaacuteOctober 2024 11:30amMicroscopic hematuriaacuteOctober 2024 11:30amSecondary hyperparathyroidismacuteOctober 2024 11:30am Type 2 diabetes mellitus with diabetic chronic kidney diseaseacuteOctober 2024 11:30am [facility] Work Phone: 1(285) 788-757305-27-2025 NoteRight Eye Reliability was poor. Progression has been stable. Foveal threshold was normal. Findings include superior nasal step defect, inferior nasal step defect, central scotoma. Left Eye Reliability was borderline. Progression has been stable. Foveal threshold was normal. Findings include superior arcuate defect, inferior arcuate defect, central scotoma.[facility] CenterJhwhofluat02-18-6469 History of Present illness Narrative* Mirta Teran DO - 11/26/2024 2:00 PM EDT Images from [...] artificial tears were recommended. documented in this encounterResearch Psychiatric CenterKvqxotrivg88-28-2448 NoteUT [address] [facility] Subjective Claudia Estrella is a 74 y.o. year old female patient being seen for follow up 6 mo follow up CAD, chronic diastolic heart failure, and hypertension. Had labs last month for nephrology. She only had 1 tablet left of metoprolol (50mg) and took it yesterday. Hasn't had any today. She was told by [facility] that she can't get [...] Other Erythromycin Base Hydromorphone (more content not included)...[facility]11-13-2024 Note Right Eye Quality was good. Scan locations included subfoveal. Progression has been stable. Findings include abnormal foveal contour, intraretinal fluid, subretinal fluid. Left Eye Quality was good. Scan locations included subfoveal. Progression has been stable. Findings include abnormal foveal contour. Notes Area of atrophy w/ retinal pigment epithelium (RPE) tearResearch Psychiatric Center 05-15-2024 History of Present illness Narrative* Mirta Teran DO - 05/15/2024 1:30 PM EST Images from [...] artificial tears were recommended. documented in this encounterResearch Psychiatric [id number] Evaluation note* Encounter Date Diagnosis Assessment Notes [...] has adequate Iron stores. Continue oral iron. [facility] Other 07-31-2023 Evaluation note* Encounter Date Diagnosis [...] has adequate Iron stores. Continue oral iron. [facility] Other 02-28-2023 Evaluation note* Encounter Date Diagnosis [...] past. Will defer this to the PCP. [facility] Other 11-28-2022 Evaluation note* Encounter Date Diagnosis [...] for DM management. She iscurrently not on OTLU or ARB due to the worsening renal [...] an adequate Iron stores. Continue oral iron. [facility] Other 11-21-2022 Evaluation note* Encounter Date Diagnosis Assessment Notes Treatment Notes Treatment Clinical Notes May, CKD (chronic kidney disease) stage 4, GFR 15-29 ml/min (ICD-10 - N18.4) [facility] Other 07-28-2022 Evaluation note* Encounter Date Diagnosis [...] an adequate Iron stores. Continue oral iron. [facility] Other 03-22-2022 Evaluation note* Encounter Date Diagnosis Assessment Notes Treatment Notes Treatment Clinical Notes Aug, Hypokalemia (ICD-10 - E87.6) [facility] Other 03-21-2022 Evaluation note* Encounter Date Diagnosis [...] an adequate Iron stores. Continue oral iron. [facility] Other 01-16-2022 Evaluation note* Encounter Date Diagnosis Assessment Notes Treatment Notes Treatment Clinical Notes Jul, Hyperuricemia (ICD-10 - E79.0) [facility] Other 11-16-2021 Evaluation note* Encounter Date Diagnosis [...] an adequate Iron stores. Continue oral iron. [facility] Other 11-02-2020 NoteRounds at this time with [...] MURPHY Amor notified Taylor Fisher & Maryan Lopez.[facility] Joel Medical CenterComment on above:Result Comment: Electronically Signed By: Kip WU, Zuleyma Fraire\Date and Time Signed: 05/04/20 13:53 NoteBasic Information Cardiology Progress Subjective Cardiology consulted over weekend for chest discomfort post operatively. Her EKG was non-acute and troponin trended negative. She does have a senior policy analyst and reportedly had stress testing in August [...] mg/dL High (05/04/20 12:12:00) POC Device SN: [id number] (05/04/20 12:12:00) POC Username: NESHA COTA (05/04/20 [...] prefers all testing to be performed at [facility]. Faxed notes to her primary senior policy analyst's office, Dr Fish. Attempted to schedule stress testing with [facility]. Ordered: EC Stress Echo Complete w/ Contrast 2. Hypertension (I10: Essential (primary) hypertension) Continue current medications and follow up with primary senior policy analyst on discharge. 3. Diabetes (E11.9: Type 2 [...] discuss this management further with her primary senior policy analyst, but agreeable to starting statin for now. Patient is offered in-patient stress echocardiogram but declines as she wants to be discharged. She is offered out patient stress testing at [facility] tomorrow am and she prefers to have this done at [facility]. Per Central Scheduling at [facility], Dobutamine Stress Echo's are not performed at the facility. She will have close FU with Dr Fish to move forward with testing. D/W Dr Michel. Faxed info from [facility] Hospital stay to her primary senior policy analyst. Attestation Discussed patient findings and plan of [...] tab(s), Oral, Bedtime saturnino (more content not included)...[facility] CenterComment on above: Result Comment: Electronically Signed By: Trudy SUAZO CNP\.br\Date and Time Signed: 05/04/20 13:15 EST\.br\Electronically Co-Signed By: Jay Jay Ramírez MD\.br\Date and Time Co-Signed: 05/04/20 13:19 [id number] NoteIV removed. nurse roving weight gauger emptied. patient and patients daughter verbalized understanding of discharge teaching. patient refused flu vaccination. patient did not verbalize any questions or concerns atthis time.[facility]11[facility] Note Admission Information Admitting Physician - [...] another day versus following up with her senior policy analyst and she has opted to do the latter. This is reasonable as she is chest pain-free at rest as well as on exertion. Patient is already on lisinopril, metoprolol, aspirin. Lipitor 20 mg was added for further risk reduction. She will follow-up with her primary senior policy analyst Dr. Fish. Regarding her recent Ortho surgery she will do weightbearing activity as tolerated and use crutchesfor assistance with ambulation. Dr. Kushal Michel Hospitalist This report was transcribed using voice recognition software. Every effort was made to ensure accuracy, however, inadvertently computerized tool technician mistakes may be present. Significant Findings POWERSCRIBE [...] pain) Ordered: Hospital Discharge Day 30 Min/Less 98390 2. Hypertension (I10: Essential (primary) hypertension) Ordered: Hospital Discharge Day 30 Min/Less 97641 3. Diabetes (E11.9: Type 2 diabetes mellitus without complications) Ordered: atorvastatin, 20 mg = 1 tab(s), Oral, Bedtime, # 30 tab(s), Refills(s) 1, Pharmacy: [facility]/pharmacy #[id number], 141.5, cm, 04/24/20 13:16:00 EDT, Height/Length Dosing, 69, kg, 05/02/20 5:50:00 EDT, Weight Dosing Hospital Discharge Day 30 Min/Less 74605 4. Acute medial meniscus tear of left knee (S83.242A: Other tear of medial meniscus, current injury, left knee, initial encounter) Ordered: Hospital Discharge Day 30 Min/Less 44251 5. Localized osteoarthritis of left knee (M17.12: Unilateral primary osteoarthritis, left knee) Ordered: Hospital Discharge Day 30 Min/Less 24662 6. No contraindication to deep vein thrombosis (DVT) prophylaxis (Z78.9: Other specified health status) Ordered: Hospital Discharge Day 30 Min/Less 16058 Bruit (R09.89: Other specified symptoms and signs [...] With When Contact Information Follow up with Deaf Teacher Within 1 week Additional Instructions: JOHN PERDOMO [address] [place] [address]- Business (1) Additional Instructions: David Talamantes [address] [place] [phone]- Business (1) Additional Instructions: Keep scheduled (more content not included)...[facility] CenterComment on above:Result Comment: Electronically Signed By: RAMIREZ VIGIL, Kushal\.br\Date and Time Signed: 05/04/20 12:[id number] [address]Dr[address] Amir rounded with patient earlier. CRM [...] time. Anticipated discharge 05/04/2020 home. CRM to follow.[facility] CenterComment on above:Result Comment: Electronically Signed By: Ab WU, Terri Ramirez\.br\Date and Time Signed: 05/02/20 10:06 [id number] NoteReason for Consultation Chest pain postoperatively History of Present Illness Mrs. Estrella is a very pleasant 70-year-old diabetic female with hypertension, unknown cholesterol, previously seen by senior policy analyst Dr. Fish in September 2019 for what [...] testing apparently took place in a private senior policy analyst office, so I am unsure whether we [...] test in September 2019 at a private senior policy analyst 's office, reportedly LV dysfunction per thepatient, [...] she undergo a dobutami (more content not included)...[facility] CenterComment on above:Result Comment: Electronically Signed By: Eleuterio VIGIL, John Marin.rashmi\Date and Time Signed: 05/02/20 08:35 [id number] NoteBasic Information Accompanied by: Family member Source of History: Self Present at Bedside: Family member Referral Source: Recovery room History Limitation: None Chief Complaint chest pain History of Present Illness Pt is a 70 F PMH HTN, HLD admitted from PACU. pt had a repair of a left medial meniscus tear with Dr. Talamantes of [facility]. Pt was in PACU recovering, had [...] 84 mg/dL (05/01/20 16:07:00) POC Device SN: [id number] (05/01/20 16:07:00) POC Username: ALEXIA HALL (05/01/20 16:07:00) Diagnostic Results EKG NSR [address]-T wave changes Images No qualifying data available. Assessment/Plan 1. Other chest pain (R07.89: Other chest pain) - possible ACS, risk factors include DM, HTN, obesity - telemetry, troponin - ASA, fasting lipid profile - consult [facility] cardiology 2. Hypertension (I10: Essential (primary) hypertension) [...] acetaminophen 325 mg Tab (more content not included)...[facility] CenterComment on above:Result Comment: Electronically Signed By: JUN VIGIL, Nhung\.br\Date and Time Signed: 05/01/20 18:30 [id number] Note [id number]:127[facility] Evaluation noteNo [employer] Other Evaluation note* Diagnosis Onset Date Resolution Status Anemia of renal disease acuteCKD (chronic kidney disease) stage 4, GFR 15-29 ml/minacuteHyperlipidemia pybjgVMX-[id number]wvdjvrbesgcqkwyZwsjsauuaqn hematuriaacuteSecondary hyperparathyroidismacuteType 2 diabetes mellitus with diabetic chronic kidney diseaseacute [facility] Work Phone: Evaluation note* Diagnosis Onset Date Resolution Status Admit Date Anemia of renal disease acuteNovember 2023 3:17pmCKD (chronic kidney disease) stage 4, GFR 15-29 ml/minacuteNovember 2023 3:17pmHyperlipidemiaacuteNovember 2023 3:17pmHypertensive chronic kidney disease with stage 1 through stage 4 chronic kiacuteNovember 2023 3:17pmHyperuricemiaacuteNovember 2023 3:17pm HypokalemiaacuteNovember 2023 3:17pmMicroscopic hematuriaacuteNovember 2023 3:17pmSecondary hyperparathyroidismacuteNov2023 3:17pm Type 2 diabetes mellitus with diabetic chronic kidney diseaseacuteNovember 2023 3:17pm [facility] Work Phone: Evaluation note* Diagnosis Primary open angle glaucoma (POAG) of both eyes, mild stage (CMS/HCC)- Primary 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 (CMS/HCC) Corneal scar, right eye Unspecified corneal opacity Dry eyes Unspecified tear film insufficiency documented in this encounter [facility] HealthcareEvaluation noteNo assessment information availableK[facility] Work Phone: Evaluation note* Diagnosis Corneal scar, right eye- Primary Unspecified corneal opacity Dry eyes Unspecified tear film insufficiency 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 (CMS/HCC) Primary open angle glaucoma (POAG) of both eyes, mild stage documented in this encounter [facility] HealthcareEvaluation note* Diagnosis Onset Date Resolution [...] with diabetic chronic kidney diseaseacuteJuly 2024 11:35am [facility] Work Phone: Evaluation note* Diagnosis Primary open angle glaucoma (POAG) of both eyes, mild stage documented in this encounter [facility] HealthcareHistory general Narrative - Reported* Type Description Date Medical History hypertension Medical HistoryDiabetic -Medical HistoryosteoporosisMedical Historyherpes of the eyeMedical HistoryHTNMedical Historychronic kidney disease, stage 3Medical HistoryosteopeniaMedical HistorygoiterMedical Historyprolapsed cervical intervertebral discMedical HistoryDM 2Medical HistoryGLAUCOMASurgical History appendixSurgical Historyeyelid jcumfjf85/2018Surgical History2 c-sectionSurgical HistoryappendectomySurgical HistoryC-section x 2Surgical Historyovarian cyst removalSurgical HistorycholecystectomySurgical Historygall bladder removal Surgical Historythyroid bx x 2Surgical HistoryRT foot surgerySurgical Historyr/o ovarian cystSurgical Historydouble heart bypass07/13/2020urgical Historycataract surgery11/2019Surgical Historyarthroscopic surgery of left knee05/01/20urgical HistorycycstocopySurgical Historyright eye ardoojd54/2021Hospitalization History see above [employer] Other [employer] general Narrative - Reported* Type Description Date Medical History hypertension Medical HistoryDiabetic -Medical HistoryosteoporosisMedical Historyherpes of the eyeMedical HistoryHTNMedical Historychronic kidney disease, stage 3Medical HistoryosteopeniaMedical HistorygoiterMedical Historyprolapsed cervical intervertebral discMedical HistoryDM 2Medical HistoryGLAUCOMAMedical History COVID 07/31/2021urgical HistoryappendixSurgical Historyeyelid hwvvsix45/2018 Surgical History2 c-sectionSurgical HistoryappendectomySurgical HistoryC-section x 2Surgical Historyovarian cyst removalSurgical HistorycholecystectomySurgical Historygall bladder removalSurgical Historythyroid bx x 2Surgical HistoryRT foot surgerySurgical Historyr/o ovarian cystSurgical Historydouble heart bypass 07/13/2020urgical Historycataract surgery11/2019Surgical Historyarthroscopic surgery of left knee05/01/20urgical HistorycycstocopySurgical Historyright eye zwsvryp12/2021Surgical HistorySTEROID IMPLANT IN RIGHT EYE08/2021Hospitalization Historysee above [employer] Other [employer] general Narrative - Reported* Type Description Date Medical History hypertension Medical HistoryDiabetic -Medical HistoryosteoporosisMedical Historyherpes of the eyeMedical HistoryHTNMedical Historychronic kidney disease, stage 3Medical HistoryosteopeniaMedical HistorygoiterMedical Historyprolapsed cervical intervertebral discMedical HistoryDM 2Medical HistoryGLAUCOMAMedical History COVID 07/31/2021urgical HistoryappendixSurgical Historyeyelid cifrltk36/2018 Surgical History2 c-sectionSurgical HistoryappendectomySurgical HistoryC-section x 2Surgical Historyovarian cyst removalSurgical HistorycholecystectomySurgical Historygall bladder removalSurgical Historythyroid bx x 2Surgical HistoryRT foot surgerySurgical Historyr/o ovarian cystSurgical Historydouble heart bypass 07/13/2020urgical Historycataract surgery11/2019Surgical Historyarthroscopic surgery of left knee05/01/20urgical HistorycycstocopySurgical Historyright eye azwmlye31/2021Surgical HistorySTEROID IMPLANT IN RIGHT EYEurgical History RIGHT HEART CATH12/2021Hospitalization Historysee above [facility] Other Reason for referral (narrative)No reason for referral information availableKettering [facility] Work Phone: Summary Purpose Family History No Family History Records Found Relationship Condition Age at Onset Recorded Date/T christophe daughter Hypertension Unknown fatherDeceasedUnknownHeart diseaseUnknownDementiaUnknownNot SpecifiedDeceased Unknownnatural sonHypertensionUnknownsisterFamily history of other condition Unknown Relationship Condition Age at Onset Recorded Date/T christophe daughter Hypertension Unknown fatherDeceasedUnknownHeart diseaseUnknownDementiaUnknownmotherDeceasedUnknownson HypertensionUnknownsisterFamily history of other conditionUnknown Advance Directives No Advanced Directives Records Found [...] disease) stage 4, GFR 15-29 ml/min Hyperlipidemia [id number] Hyperuricemia Hypokalemia Microscopic hematuria Secondary hyperparathyroidism Type 2 diabetes mellitus with diabetic chronic kidney disease Chief Complaint RENAL 4 MONTH F/U Reason for Visit Anemia of renal dise ase CKD (chronic kidney disease) stage 4, GFR 15-29 ml/min Hyperlipidemia [id number] Hyperuricemia Hypokalemia Microscopic hematuria Secondary hyperparathyroidism Type [...] section and content) DATE CREATED AUTHOR 03/07/2021 [facility] DATE CREATED AUTHOR AUTHOR'S ORGANIZ ATION 08/05/2021 [facility] DATE CREATED AUTHOR AUTHOR'S ORGANIZ ATION 12/16/2021 [facility] DATE CREATED AUTHOR AUTHOR'S ORGANIZ ATION 10/29/2022 [facility] DATE CREATED AUTHOR AUTHOR'S ORGANIZ ATION 11/29/2024 [facility] DATE CREATED AUTHOR AUTHOR'S ORGANIZ ATION 05/06/2025 [facility] REASON FOR VISIT (unrecogniz ed section and content) ReasonCommentsFollow-upReasonCommentsGlaucomaRetinopathyReasonCommentsMed Refill Care Teams (unrecognized sec tion and content) Team Status: Active Member Role Status Dates John Perdomo DO Primary Care Provider Active Team Status: Active Member Role Status Dates John Perdomo DO Primary Care Provider Active Start: January 01, 2024 Ike Khan ProviderActiveStart: January 01, 2024 Team Status: Inactive Member Role Status Dates John Perdomo DO Primary Care Provider Active Start: January 08, 2024 End: January 07Ike South ProviderActiveStart: January 08, 2024 End: January 08, [...] May 13, 2024Team MemberRelationshipSpecialtyStart DateEnd Date Unallocated, Ara Robertson MD [address] [place] [address] PCP - [facility]08/18/23 John Perdomo MD [address] [place] [address] Referring PhysicianOrthmountain west medical centeredic Nroxxxh50/6/23Team MemberRelationshipSpecialty Start DateEnd Date Unallocated, Ara Robertson MD [facility] [place] [address] PCP - [facility]08/18/23 John Perdomo MD [address] [place] [address] Referring PhysicianOrthopaedic Aggiofv31/6/23 Team Status: Active Member Role Status Dates John Perdomo DO Primary Care Provider Active Start: August 26, 2024 Geneva Mary Grace , MDAttending ProviderActiveStart: August 26, 2024 Team Status: Inactive Member Role Status Dates John Perdomo DO Primary Care Provider Active Start: September 03, 2024 End: September 03bdul Mary Grace , MDAttending ProviderActiveStart: September 03, 2024 End: September 03, 2024Team MemberRelationshipSpecialtyStart DateEnd Date Unallocated, Ara Robertson MD [address] [place] [address] PCP - [facility]08/18/23 John Perdomo MD [address] [place] [address] Referring PhysicianOrthmountain west medical centeredic Chdaqga50/6/23Team MemberRelationshipSpecialty Start DateEnd Date Unallocated, Ara Robertson MD [address] [place] [address] PCP - [facility]08/18/23 John Perdomo MD [address] [place] [address] Referring PhysicianOrthmountain west medical centeredic Vwhsosw52/6/23 Team Status: Active Member Role Status Dates John Perdomo DO Primary Care Provider Active Start: January 20, 2025 Ike Khan ProviderActiveStart: January 20, 2025 Team Status: Inactive Member Role Status Dates John Perdomo DO Primary Care Provider Active Start: January 29, 2025 End: January 29Ike South ProviderActiveStart: January 29, 2025 End: January 29, 2025Team MemberRelationshipSpecialtyStart DateEnd Date Unallocated, Ara Robertson MD [address] [place] [address] PCP - [facility]08/18/23 John Perdomo MD [address] [place] [address] Referring PhysicianOrthmountain west medical centeredic Rcylctr04/6/23 Team Status: Active Member Role/Relationship Status Dates John Perdomo , DO Primary Care Provider Active Team Status: Inactive Member Role/Relationship Status Dates John Perdomo , DO Primary Care Provider Active Start: January 29, 2025 End: January 29bdul Mary Grace , MDAttending ProviderActiveStart: January 29, 2025 End: January 29, 2025 Team Status: Active Member Role/Relationship Status Dates John Perdomo , DO Primary Care Provider Active Start: April 18, 2025 Geneva Mary Grace , MDAttending ProviderActiveStart: April 18, 2025 Team Status: Inactive Member Role/Relationship Status Dates John Perdomo , DO Primary Care Provider Active Start: April 22, 2025 End: April 22bdul Mary Grace , MDAttending ProviderActiveStart: April 22, 2025 End: April 22, 2025Team MemberRelationshipSpecialtyStart DateEnd Date Unallocated, Noms Provider, [address] [place] [address] PCP - GeneralFamily Medicine08/18/23 John Perdomo MD [address] [place] [address] Referring PhysicianOrthopaedic Ikwtxgt25/6/23 Goals (unrecognized section and content) Goals may [...] BE BASED ON THE PRIMARY CLINICAL RECORDS. [employer] [facility]. provides no warranty or guarantee of the accuracy or completeness of information in this document.
== END 2025-05-07 09:58 | disposition home or self-care (01) ==
LOC: US 09:57
PROVIDERS: PCP Family Medicine; Visit Provider Nurse Practitioner Family
DX: R60.0 Localized edema (principal); R60.9 Edema, unspecified
CPT/HCPCS: 93970

== ENCOUNTER 2025-05-12 08:54 | Outpatient (OUT) | payer MEDICARE, OTHER, SELFPAY ==
--- OUTSIDE RECORDS SUMMARY | 2025-05-01 12:20 | XMS_ITS | Encounter Summary ---
Author Organization [facility] Address [address] [place] [address] Care Team Providers Care Process Development Manager Name Role Phone Hunter Perdomoel Primary Care Provider [phone] Reason for Visit * ReasonCommentsFollow-upPatient is here today for a 2 week follow up. Patient states she is not doing well, Patient is verySOB. Patient has been unable to eat, and vomiting up her medication. Patient states when she exhales she hears a whistling.Coronary Artery DiseaseCongestive Heart FailureHypertensionHeart MurmurHyperlipidemiaShortness of BreathSOB/MCALLISTER increased over the last 3 to 4 days. Patient pulse ox at home has been 84 with movement and94 with sitting. Patient is unable to lay flat to sleep using 4 pillows.FatigueGreatly increasedEdemaBilateral leg and abdominal swellingChest PainPatient has been using dee for chest and back pain. 3 different times. Patient states it relieved chest and back painCoughIncreased Encounter Details DateTypeDepartmentCare Team (Latest Contact Info)Dhiblhxvqsi50/30/2025 1:20 PM EDTOffice Visit [facility] [place] [address] [place] [address] Emilia To, IRISH [address] [phone] Acute on chronic diastolic congestive heart failure (CMS/HCC) (Primary Dx); Stage 4 chronic kidney disease (CMS/HCC); Essential (primary) hypertension; Coronary artery disease involving northwestern shoshone coronary artery of northwestern shoshone heart without angina pectoris; History of coronary artery bypass surgery; Primary hypertension Social History Tobacco UseTypesPacks/DayYears UsedDateSmoking Tobacco: NeverSmokeless Tobacco: NeverAlcohol UseStandard Drinks/WeekCommentsNot Currently0 (1 standard drink = 0.6 oz pure alcohol)[facility] UtilitiesAnswerDate RecordedIn the past 12 months has the [employer], gas, oil, or water [employer] threatened to shut off services in your home?No05/01/2025Humiliation, Afraid, Rape, and Kick questionnaireAnswerDate RecordedWithin the last year, have you been afraid of your partner or ex-partner?No05/01/2025Emotionally AbusedNot on file05/01/2025Physically Abused Not on file05/01/2025Sexually AbusedNot on file05/01/2025Overall Financial Resource Strain (CARDIA)AnswerDate RecordedHow hard is it for you to pay for the very basics like food, housing, medical care, and heating?Not hard at all 05/01/2025UT Safety & EnvironmentAnswerDate RecordedFear of Current or Ex-PartnerNot on file08/24/2023Emotionally AbusedNot on file08/24/2023hysically AbusedNot on file08/24/2023Sexually AbusedNot on file08/24/2023hysically or Sexually AbusedNot on file08/24/2023TransportationAnswerDate RecordedIn the past 12 months, has lack of transportation kept you from medical appointments or from getting medications?No05/01/2025Lack of Transportation (Non-Medical)Not on file 05/01/2025Housing Stability Vital SignAnswerDate RecordedIn the last 12 months, was there a time when you were not able to pay the mortgage or rent on time?No 05/01/2025Number of Times Moved in the Last YearNot on file05/01/2025t any time in the past 12 months, were you homeless or living in a correction (including now)? No05/01/2025Hunger Vital SignAnswerDate RecordedWithin the past 12 months, you worried that your food would run out before you got the money to buymore.Never true05/01/2025Ran Out of Food in the Last YearNot on file05/01/2025 CommentsUnknownSex and Gender InformationValueDate RecordedSex Assigned at Xsvwdh2905/19/2022 6:11 PM ESTLegal JipYkxvxc55/30/2022 12:22 AM EDTGender TjerkahiGvdomt98/17/2022 6:11 PM ESTSexual OrientationHeterosexual or Straight 05/19/2022 6:11 PM ESTdocumented as of this encounter Last Filed Vital Signs Vital SignReadingTime TakenCommentsBlood Lptxkiqa270/8605/01/2025 1:25 PM EDT Ugktn218205/01/2025 1:25 PM EDTTemperature--Respiratory Rate--Oxygen Jhhjfzpocd68% 05/01/2025 1:25 PM EDTInhaled Oxygen Concentration--Cxqrkv74.1 kg (128 lb) 05/01/2025 1:25 PM SBEZwcgve357.2 cm (4' 8 )05/01/2025 1:25 PM EDTBody Mass Index28. 1:25 PM EDTdocumented in this encounter Functional Status * QuestionAnswerDate of AssessmentAuthorHeart Rate DagnqeMxnyqrb43/30/2025 6:01 PM Jhoana Sims RNPatient GykbzxnnPhszmrs32/30/2025 6:01 PM Jhoana Sims RN * QuestionAnswerDate of IoqeiibjokBjleysRX029/5305/01/2025 8:23 PM Benja Mar RNPulse7305/01/2025 8:23 PM Benja Mar RN * Pina Fall RiskQuestionAnswerDate of AssessmentAuthorHistory of Falling, Immediate or Within 3 Fvqajn555 6:50 PM Jhoana Sims RNSecondary Iytnkvngv8868/30/2025 6:50 PM Jhoana Sims, RNAmbulatory Sgr414 6:50 PM Jhoana Sims RNIntravenous Therapy/Heparin Sgvs8919 6:50 PM Jhoana Sims RNGait/Ydqfvjfjxvcz750/30/2025 6:50 PM Jhoana Sims RNMental Ilbumv495/30/2025 6:50 PM Jhoana Sims RNMorse Fall Risk Score35 05/01/2025 6:50 PM Jhoana Sims RN * Phill ScaleQuestionAnswerDate of AssessmentAuthorBraden No Risk Interventions Continue to assess patient according to level of care05/01/2025 8:23 PM EDT Benja Degroot, RNSensory Pvrwexblrxk030/30/2025 8:23 PM EDTCBenja robins GBSgwkhruz845/30/2025 8:23 PM EDTCBenja robins, OLDvshkprq283/30/2025 8:23 PM EDTCBenja robins ZHXumfgodg295/30/2025 8:23 PM EDBenja Justin RN Eqlkekalt596/30/2025 8:23 PM EDTCBenja robins, RNFriction and Shear3 05/01/2025 8:23 PM EDTCBenja robins RNBraden Scale Vwphc2341/30/2025 8:23 PM Benja Mar RN * [place] Fall Risk InterventionsQuestionAnswerDate of AssessmentAuthor [place] Fall Risk XxmpuwrztmhvuIoithmdy57/30/2025 6:50 PM Jhoana Sims RN * Pain Assessment TimerQuestionAnswerDate of AssessmentAuthorRestart Pain Assessment ZgxtuThh51/30/2025 8:23 PM Benja Mar RN * Sepsis Model ScoresQuestionAnswerDate of AssessmentAuthorEarly Detection of Sepsis Score2.011 10:46 PM EDTChronicles, BatchqEarly Detection of Sepsis Score0.91 10:46 PM EDTChronicles, Batchq * Pain AssessmentQuestionAnswerDate of AssessmentAuthorPain Interventions Gknoekby56/30/2025 8:23 PM Benja Mar RNPatient's Stated Pain GoalNo pain05/01/2025 8:23 PM Benja Mar RNPain AssessmentNo/denies pain 05/01/2025 8:23 PM Benja Mar RN * Deterioration Index ScoreQuestionAnswerDate of AssessmentAuthorDeterioration Index Score27.031 10:46 PM EDTChmikal Batchq * Head, Ears, Eyes, Nose, and Throat (HEENT)QuestionAnswerDate of Assessment AuthorHead, Ears, Eyes, Nose, and Throat (WDL)X1 8:23 PM Benja Mar RNR EyeMildly impaired vision;Corrective upvnmc8505/01/2025 8:23 PM FELIXT Benja Degroot RNL EyeMildlfélix impaired vision;Corrective shbrxr6005/01/2025 8:23 PM Benja Mar RNMucous Membrane(s)Moist;[place];Lbmrhc4005/01/2025 8:23 PM Benja Mar RNTeethIntact05/01/2025 6:01 PM Jhoana Sims RN * QuestionAnswerDate of AssessmentAuthorMAP (mmHg)8205/01/2025 8:23 PM Benja Cuevas RN * Short Portable Mental StatusQuestionAnswerDate of AssessmentAuthorWhat are the date, month, year? 6:50 PM Jhoana Sims RNWhat is the day of the week? 6:50 PM Jhoana Sims RNWhallyssa is the name of this place? 6:50 PM Jhoana Sims RNWhat is your phone number?0 05/01/2025 6:50 PM Jhoana Sims RNHow old are you? 6:50 PM FELIXT Jhoana Carmona RNWhen were you born? 6:50 PM Jhoana Sims RN Who is the current president? 6:50 PM Jhoana Sims RNWho was the president before him? 6:50 PM Jhoana Sims RNWhat was your mother's maiden name? 6:50 PM Jhoana Sims RNCan you count backward from 20 by 3s? 6:50 PM Jhoana Sims RNShort Portable Mental Finvy780 6:50 PM Jhoana Sims RN * Fall Risk LevelQuestionAnswerDate of AssessmentAuthorMobility zoneLow (Green Zone)05/01/2025 6:50 PM Jhoana Sims RNMorse fall risk zoneLow (Green Zone)05/01/2025 6:50 PM Jhoana Sims RNMental status questionaire zoneLow (Green Zone)05/01/2025 6:50 PM Jhoana Sims RN * Skin Assessment Sign offQuestionAnswerDate of AssessmentAuthorDual Sign-off - Admission/TransferA. Jenniffer RN05/01/2025 6:01 PM Jhoana Sims RNAny new wounds identified on admission/transfer?No05/01/2025 6:01 PM Jhoana Sims RNProvider notified of new xkimoFx5705/01/2025 6:01 PM Jhoana Sims RN * Vital SignsQuestionAnswerDate of TmuvzdtgbuDvilmjGrxu48.81 6:01 PM Jhoana Sims RNTemp priYtzulkpf10/30/2025 6:01 PM Jhoana Sims RN Heart Rate CzlchqVrrzfam67/30/2025 6:01 PM Jhoana Sims RNBP Location Right arm05/01/2025 6:01 PM Jhoana Sims RNBP FykumdMjpweazgo39/30/2025 6:01 PM Jhonaa Sims RNPatient CovislxiJemtuup22/30/2025 6:01 PM Jhoana Del Castillo RN * QuestionAnswerDate of WpjhrdyokvHwvqgvZvJ34472/30/2025 8:23 PM EDTCBenja robins RN * QuestionAnswerDate of KcguwffdqhFnqyvcSH972/5305/01/2025 8:23 PM EDTCraBenja lam DGIbiyt3333/30/2025 8:23 PM EDTCraBenja lam RNResp201 8:23 PM EDTCraBenja lam RNPulse rate from Plethysmogram (bpm)7205/01/2025 8:23 PM EDBenja Justin RN * QuestionAnswerDate of AssessmentAuthorSwallowAble to swallow solids and liquids without jjluwntmls35/30/2025 8:23 PM EDBenja Justin RN * QuestionAnswerDate of AssessmentAuthorBilateral Breath SoundsDiminished 05/01/2025 8:23 PM EDBenja Justin RNRespiratory ZhvemzxGklgus22/30/2025 8:23 PM EDTCBenja robins RNChest AssessmentChest expansion symmetrical 05/01/2025 8:23 PM EDTCBenja robins RNRespiratory WddgcvVgweypeus41/30/2025 8:23 PM EDBenja Justin RNRespiratory Depth/SilfzxTjradbo26/30/2025 8:23 PM EDBenja Justin RNDyspnea OccurrenceWith rvzcbyka47/30/2025 8:23 PM EDT Benja Degroot RN * QuestionAnswerDate of AssessmentAuthorCardiac VzujqaHAS90/30/2025 8:23 PM EDT Benja Degroot RNEctopy XwgvmeqfmVfjbjiuiuv65/30/2025 6:01 PM Jhoana Sims RNCardiac DmbntyxyroOhccaar06/30/2025 8:23 PM Benja Mar RN Operator Catalyst Concentration PrsiynSb02/30/2025 8:23 PM Benja Mar RNTelemetry Box Csqbeuxr602296/30/2025 6:01 PM Jhoana Sims RNJugular Venous Distention (JVD)No05/01/2025 8:23 PM EDTCraBenja lam RNCardiac Symptoms None05/01/2025 8:23 PM EDTCraBenja lam RNHeart SoundsS1, S205/01/2025 8:23 PM EDTCraBenja lam RN * GastrointestinalQuestionAnswerDate of AssessmentAuthorGastrointestinal (WDL) WDL1 8:23 PM EDTCraBenja lam RN * Peripheral VascularQuestionAnswerDate of AssessmentAuthorPeripheral Vascular (WDL)X1 8:23 PM EDTCraBenja lam RNCapillary RefillLess than/equal to 2 seconds (All extremities)05/01/2025 8:23 PM EDTCraBenja lam RNPulses Right radial;Left radial;Right pedal;Left pedal1 8:23 PM EDTCBenja robins RNCyanosisNone1 8:23 PM EDTCBenja robins RNEdemaRight lower extremity;Left lower chzzuehho83/30/2025 6:01 PM Jhoana Sims RN Peripheral Vascular Additional AssessmentsRight lower extremity;Left lower hqticbugx37/30/2025 6:01 PM Jhoana Sims RN * RUE Neurovascular AssessmentQuestionAnswerDate of AssessmentAuthorRight Radial Pulse+ 8:23 PM EDTCBenja robins RN * LUE Neurovascular AssessmentQuestionAnswerDate of AssessmentAuthorLeft Radial Pulse+ 8:23 PM EDTCBenja robins RN * RLE Neurovascular AssessmentQuestionAnswerDate of AssessmentAuthorRLE Edema+1 05/01/2025 8:23 PM EDBenja Justin RNRLE Capillary RefillLess than/equal to 2 irmupyc0905/01/2025 8:23 PM EDTCBenja robins RNRRUBI ColorAppropriate for nzkomqwox30/30/2025 8:23 PM EDTCrable, Yousif, RNRLE Temperature/Moisture Warm;Dry05/01/2025 8:23 PM EDTCraBenja lam RNRight Posterior Tibial Pulse + 6:01 PM Jhoana Sims RNRight Pedal Pulse+ 8:23 PM EDTCBenja robins RN * LLE Neurovascular AssessmentQuestionAnswerDate of AssessmentAuthorLLE Edema+1 05/01/2025 8:23 PM EDTCraBenja lam RNLLE Capillary RefillLess than/equal to 2 lcatvwy9505/01/2025 8:23 PM EDTCrableBenja RNLLE ColorAppropriate for pxongvhwy04/30/2025 8:23 PM EDTCraBenja lam RNLLE Temperature/Moisture Warm;Dry05/01/2025 8:23 PM EDTCBenja robins RNLeft Posterior Tibial Pulse+1 05/01/2025 6:01 PM Jhoana Sims RNLeft Pedal Pulse+ 8:23 PM EDTCBenja robins RN * MusculoskeletalQuestionAnswerDate of AssessmentAuthorMusculoskeletal (WDL)WDL 05/01/2025 8:23 PM Benja Mar RN * PsychosocialQuestionAnswerDate of AssessmentAuthorPsychosocial (WDL)WDL 05/01/2025 8:23 PM Benja Mar RN * Pina Fall RiskQuestionAnswerDate of AssessmentAuthorHistory of Falling, Immediate or Within 3 Pwxekk745 6:50 PM Jhoana Sims RNSecondary Tiwztxsda7800/30/2025 6:50 PM Jhoana Sims RNAmbulatory Dgb543 6:50 PM Jhoana Sims RNIntravenous Therapy/Heparin Fwlj6592 6:50 PM Jhoana Sims RNGait/Hjtdzjgdiodh567/30/2025 6:50 PM Jhoana Sims RNMental Lzdfjz637 6:50 PM Jhoana Sims RNMorskaz Fall Risk Score35 05/01/2025 6:50 PM Jhoana Sims RN * Phill ScaleQuestionAnswerDate of AssessmentAuthorBraden No Risk Interventions Continue to assess patient according to level of care05/01/2025 8:23 PM EDT Benja Degroot, RNSensory Hfroljnbbqc615/30/2025 8:23 PM EDTCBenja robins KCYavzbovw698/30/2025 8:23 PM EDTCraBenja lam, UHVbeqdcyc533/30/2025 8:23 PM EDTCBenja rboins UMFjioicoj673/30/2025 8:23 PM EDTCBenja robins RN Rssdcmsmb696/30/2025 8:23 PM EDTCBenja robins, RNFriction and Shear3 05/01/2025 8:23 PM EDTCBenja robins RNBraden Scale Vwixy7568/30/2025 8:23 PM EDBenja Justin RN * Charting TypeQuestionAnswerDate of AssessmentAuthorCharting TypeShift jpbudijpqi67/30/2025 8:23 PM Benja Mar RN * Values/BeliefsQuestionAnswerDate of AssessmentAuthorCultural Requests During Bplgjbfqilhjsqmruvh43/30/2025 6:51 PM Ana Davies RNSpiritual Requests During Sicthgjrntaosqxogyg48/30/2025 6:51 PM Ana Davies RN * GenitourinaryQuestionAnswerDate of AssessmentAuthorGenitourinary (WDL)WDL 05/01/2025 8:23 PM Benja Mar RN * Patient MonitoringQuestionAnswerDate of AssessmentAuthorFrequency of Checks Twice per hour, cyugvlcm68/30/2025 6:50 PM Jhoana Sims RN * Safe EnvironmentQuestionAnswerDate of AssessmentAuthorChair AlarmsOff 05/01/2025 6:50 PM Jhoana Sims, RNArm Bands OnID05/01/2025 6:50 PM Jhoana Del Castillo RNSide Rails/Bed Safety2/410 6:50 PM Jhoana Sims RNBed ZkzgqwIrd65/30/2025 6:50 PM Jhoana Sims RNThe Patient's Environment is DgyoOrb82/30/2025 6:50 PM Jhoana Sims RN * MobilityQuestionAnswerDate of NdjbanqauvEeyboqLbkoqoxzce15/30/2025 6:50 PM Jhoana Del Castillo RNActivity PerformedAmbulated in room05/01/2025 6:50 PM Jhoana Del Castillo RNRepositionedTurns self05/01/2025 6:50 PM Jhoana Sims RN Level of CsggkmcqkrPxqrkadhyad09/30/2025 6:50 PM Jhoana Sims RNHead of Bed ElevatedSelf /30/2025 6:50 PM Jhoana Sims RNHeels/Feet Foot of bed elevated;Heels elevated off bed05/01/2025 6:50 PM Jhoana Sims RNRange of MotionActive;All kizkigjlcmy75/30/2025 6:50 PM Jhoana Sims RNAnti-Embolism DevicesBilateral;Sequential compression devices, below knee05/01/2025 6:50 PM Jhoana Sims RNAnti-Embolism InterventionOff 05/01/2025 6:50 PM Jhoana Sims RNPatient's mobility zoneZone 6:50 PM Jhoana Sims RNPositioning FrequencyAble to turn self05/01/2025 6:50 PM Jhoana Sims RN * PrecautionsQuestionAnswerDate of PvhetiwxskPzcqpsTwmabugmxytEqjp93/30/2025 6:50 PM Jhoana Sims RN * Family/Significant Other CommunicationQuestionAnswerDate of AssessmentAuthor Family/Significant Other HqdrxbXsjolrji26/30/2025 6:50 PM Jhoana Sims RN * Comfort and Environment InterventionsQuestionAnswerDate of AssessmentAuthor ComfortRepositioned;Gown pobxcex7005/01/2025 6:50 PM Jhoana Sims, BRYCE * Safety Equipment at BedsideQuestionAnswerDate of AssessmentAuthorSafety Equipment at AglqnjwCdvw87/30/2025 6:50 PM Jhoana Sims, BRYCE * ADL ScreeningQuestionAnswerDate of AssessmentAuthorDo you snore or wake up gasping for air?No05/01/2025 6:50 PM Ana Davies RNCan you bring in your CPAP/BiPAP from home?N/A1 6:50 PM Ana Davies RNPatient's Vision Adequate to Safely Complete Daily ZxhlsgpvbfKos44/30/2025 6:50 PM Ana Davies RNPatient's Judgment Adequate to Safely Complete Daily ActivitiesYes 05/01/2025 6:50 PM Ana Davies RNPatient's Memory Adequate to Safely Complete Daily AgnlrzhomlNdy84/30/2025 6:50 PM Ana Davies RNPatient Able to Express Needs/JcuuphjDlw04/30/2025 6:50 PM Ana Davies RNDressing Mxkjihpknbu99/30/2025 6:50 PM Ana Davies XQPomwkzdrKtkpkwobdnk08/30/2025 6:50 PM Ana Davies, SFYlzrhmaJuangovfuft20/30/2025 6:50 PM Ana Davies KIDbepkkoEflzhlccivn23/30/2025 6:50 PM Ana Davies RNToiletingIndependent 05/01/2025 6:50 PM Ana Davies RNIn/Out YzeKkhtogiaicu64/30/2025 6:50 PM Ana Davies RNWalks in OrjdTttglqksksu39/30/2025 6:50 PM Ana Daveis RNWeakness of UdcsNyrk66/30/2025 6:50 PM Ana Davies RNWeakness of Arms/NnadmXzuu88/30/2025 6:50 PM Ana Davies RNHearing - Right Ear Sdtuxgprrz37/ 6:50 PM Ana Davies RNHearing - Left EarFunctional 05/01/2025 6:50 PM Ana Davies RNIs Patient Total Care?No05/01/2025 6:50 PM Ana Davies RNWhich is your dominant hand?Right05/01/2025 6:50 PM Ana Chang, BRYCE * ConsultsQuestionAnswerDate of AssessmentAuthorSpiritual Care Consult NeededNo 05/01/2025 6:51 PM Ana Davies RNSocial Services Consult NeededNo 05/01/2025 6:51 PM Ana Davies RN * Therapy ConsultsQuestionAnswerDate of AssessmentAuthorPT Evaluation Needed1 05/01/2025 6:50 PM Ana aDvies RNOT Evaluation Gyojyt558 6:50 PM Ana Davies RNSLP Evaluation Gskjwg954/30/2025 6:50 PM Ana Davies RN * Assistive DevicesQuestionAnswerDate of AssessmentAuthorAssistive Devices Psleetxzsl54/30/2025 6:50 PM Ana Davies RN * [place] Fall Risk InterventionsQuestionAnswerDate of AssessmentAuthor [place] Fall Risk WjapdfsfgrvddXfdngqwx54/30/2025 6:50 PM Jhoana Sims RN * Suicidal IdeationQuestionAnswerDate of AssessmentAuthor1. Wish to be (Lifetime)No05/01/2025 6:51 PM Ana Davies RN2. Non-Specific Active Suicidal Thoughts (Lifetime)No05/01/2025 6:51 PM Ana Davies, BRYCE * Pain AssessmentQuestionAnswerDate of AssessmentAuthorPain Interventions Rzlxieqe60/30/2025 8:23 PM Benja Mar RNPatient's Stated Pain GoalNo pain05/01/2025 8:23 PM Benja Mar RNPain AssessmentNo/denies pain 05/01/2025 8:23 PM Benja Mar RN * NutritionQuestionAnswerDate of AssessmentAuthorDiet TypeHeart healthy 05/01/2025 6:50 PM Jhoana Sims RNFeedingAble to feed self05/01/2025 6:50 PM Jhoana Sims RN * Respiratory InterventionsQuestionAnswerDate of AssessmentAuthorRespiratory Interventions PerformedCough and deep zqprdya43/30/2025 6:01 PM Jhoana Sims RN * Cough and Deep BreatheQuestionAnswerDate of AssessmentAuthorCough and Deep UkwampeYqa06/30/2025 8:23 PM Benja Mar RN * IntegumentaryQuestionAnswerDate of AssessmentAuthorIntegumentary (WDL)WDL 05/01/2025 8:23 PM Benja Mar RN * Patient Strengths/Problem AreasQuestionAnswerDate of AssessmentAuthorStrengths (Must Choose Two)Communication Skills;Supportive Swibuo0605/01/2025 6:51 PM Ana Chang RNProblem AreasHealth Problems;Physical Vvugox3205/01/2025 6:51 PM Ana Davies RN * Environment of Care ChecklistQuestionAnswerDate of AssessmentAuthorWere suicide precautions explained to the patient?No05/01/2025 6:50 PM Jhoana Sims RNPotebrianneially harmful objects out of patient reach?Yes05/01/2025 6:50 PM Jhoana Sims RNPersonal belongings secured?Yes05/01/2025 6:50 PM Jhoana Del Castillo RNPatient dressed in hospital-provided attire only?Yes 05/01/2025 6:50 PM Jhoana Sims RNPatient care equipment (cords, cables, call bells, lines, and drains) shortened, removed, or accounted for?Yes 05/01/2025 6:50 PM Jhoana Smis RNRoom secured by RN per shift?Yes 05/01/2025 6:50 PM Jhoana Sims RN * Modified Malnutrition Screening Tool (MST)QuestionAnswerDate of Assessment AuthorHave you recently lost weight without trying? 7:45 PM EDT Li Cabral RNHave you been eating poorly because of a decreased appetite? 7:45 PM Li Damon RNOn home tube feeding or TPN?0 05/01/2025 7:45 PM Li Damon RNDoes patient have a stage 2-4 pressure ulcer? 7:45 PM Li Damon RN * Weight Loss ScoreAnswerDate of YxddakpkwnPlzvie194/30/2025 7:45 PM Li Damon RN * Malnutrition ScoreAnswerDate of OjenhnrztpFdpxea058/30/2025 7:45 PM Li Damon RN documented as of this encounter Progress Notes * Emilia To, IRISH - 05/01/2025 1:20 PM EDT Images from the original note were not included. [place] [facility] Subjective Chief Complaint Patient presents with Follow-up Patient is here today for a 2 week follow up. Patient states she is not doing well, Patient is verySOB. Patient has been unable to eat, and vomiting up her medication. Patient states when she exhales she hears a whistling. Coronary Artery Disease Congestive Heart Failure Hypertension Heart Murmur Hyperlipidemia Shortness of Breath SOB/MCALLISTER increased over the last 3 to 4 days. Patient pulse ox at home has been 84 with movement and94 with sitting. Patient is unable to lay flat to sleep using 4 pillows. Fatigue Greatly increased Edema Bilateral leg and abdominal swelling Chest Pain Patient has been using dee for chest and back pain. 3 different times. Patient states it relieved chest and back pain Cough Increased Patient Active Problem List Diagnosis Coronary arteriosclerosis [...] Microscopic hematuria Nontoxic multinodular goiter Secondary hyperparathyroidism Acute kidney injury Acute on chronic heart failure with preserved ejection fraction (HFpEF) ([facility]) Family History Problem Relation Name Age of Onset Heart attack Mother Heart failure Mother Heart attack Father Social History Tobacco Use Smoking status: Never Smokeless tobacco: Never Substance Use Topics Alcohol use: Not Currently Drug use: Never Coronary Artery Disease Symptoms include chest pain, leg swelling and shortness of breath. Risk factors include hyperlipidemia. Her past medical history is significant for CHF. Hypertension Associated symptoms include chest pain, malaise/fatigue and shortness of breath. Hyperlipidemia Associated symptoms include chest pain and shortness of breath. Congestive Heart Failure Associated symptoms include chest pain, fatigue and shortness of breath. Her past medical history is significant for CAD. Heart Murmur Associated symptoms include chest pain. Shortness of Breath Associated symptoms include chest pain, leg swelling and wheezing. Her past medical history is significant for CAD. Fatigue Associated symptoms include chest pain and fatigue. Edema Associated symptoms include chest pain and fatigue. Past medical history is significant for CAD and CHF. Chest Pain Associated symptoms include malaise/fatigue and shortness of breath. Her past medical history is significant for CAD, CHF and hyperlipidemia. Claudia is seen in follow-up. She is [...] leg swelling today. Denies CP, palpitations, dizziness. Update 05/01/2025 Pt reports worsening symptoms the past 3-4 days. Worsening MCALLISTER. Pulse ox with minimal exertion downto 84%. She is sleeping with 4 pillow. Worsening LE edema. Worsened abdominal bloating. We tried to increase her bumex to 2mg BID but this did not improve her sx's, sx's have worsened. Her weight at home is up to 126#. She notes she usually tends to feel best at 122#. This was in thepast. She saw Dr. Jenkins last week who noted no changes needed. She c/o chest pain, relieved with SL nitroglycerin. Objective Visit Vitals BP 171/86 (BP Location: Left arm, Patient Position: Sitting) Pulse 72 Ht 1.422 m (4' 8 ) Wt 58.1 kg (128 lb) SpO2 92% BMI 28.70 kg/m?? Smoking Status Never BSA 1.51 m?? Physical Exam Constitutional: Appearance: She is well-developed. She is ill-appearing. HENT: Head: Normocephalic and atraumatic. Nose: Nose normal. Eyes: General: No scleral icterus. Pupils: Pupils are equal, round, and reactive to light. Neck: Thyroid: No thyromegaly. Vascular: No JVD. Comments: +JVD Cardiovascular: Rate and Rhythm: Normal rate and regular rhythm. Pulses: Radial pulses are 2+ on the right side and 2+ on the left side. Heart sounds: Normal heart sounds. No murmur heard. No friction rub. No gallop. Comments: Trace pitting edema, some visible sandal imprints on her feet Pulmonary: Effort: No respiratory distress. Breath sounds: Rales (fine rales lower lobes) present. No wheezing. Comments: Labored breathing, pt dyspneic with talking Chest: Chest wall: No tenderness. Abdominal: General: Bowel sounds are normal. There is distension. Palpations: Abdomen is soft. Tenderness: There is no abdominal tenderness. Musculoskeletal: Cervical back: Neck supple. Right lower leg: Edema present. Left lower leg: Edema present. Comments: Pitting edema upper thighs, +1 edema BLE Skin: General: Skin is warm and dry. Neurological: General: No focal deficit present. Mental Status: She is alert and oriented to person, place, and time. Psychiatric: Mood and Affect: Mood normal. Behavior: Behavior is cooperative. Judgment: Judgment normal. Allergies Allergies Allergen Reactions Erythromycin Other Erythromycin Base Hydromorphone Penicillins Hives Spironolactone Rash Medications No current facility-administered medications for this visit. No current outpatient medications on file. Facility-Administered Medications Ordered in Other Visits: acetaminophen (Tylenol) tablet 650 mg, 650 mg, oral, q6h PRN, Kerline Patel CNP allopurinol (Zyloprim) tablet 100 mg, 100 mg, oral, Daily, Kerline Patel CNP, 100 mg at 05/01/252200 amLODIPine (Norvasc) tablet 10 mg, 10 mg, oral, Daily, Kerline Patel CNP [START ON 05/02/2025] aspirin EC tablet 81 mg, 81 mg, oral, q AM, Kerline Patel CNP atorvastatin (Lipitor) tablet 40 mg, 40 mg, oral, Nightly, Kerline Patel CNP, 40 mg at 05/01/252200 bumetanide (Bumex) injection 2 mg, 2 mg, intravenous, BID, Kerline Patel CNP, 2 mg at 05/01/252199 heparin (porcine) injection 5,000 Units, 5,000 Units, subcutaneous, q12h PONCHO, Kerline Patel CNP, 5,000 Units at 05/01/252102 hydrALAZINE (Apresoline) tablet 50 mg, 50 mg, oral, BID, Kerline Patel CNP, 50 mg at 05/01/252200 [START ON 05/02/2025] isosorbide mononitrate ER (Imdur) 24 hr tablet 30 mg, 30 mg, oral, Once Daily, Kerline Patel CNP levothyroxine (Synthroid, Levoxyl) tablet 75 mcg, 75 mcg, oral, Daily, Kerline Patel CNP metoprolol tartrate (Lopressor) tablet 50 mg, 50 mg, oral, BID, Kerline Patel CNP, 50 mg at 05/01/252200 midodrine (Proamatine) tablet 5 mg, 5 mg, oral, PRN, Kerline Patel CNP potassium chloride CR (Klor-Con M20) ER tablet 40 mEq, 40 mEq, oral, Daily, Kerline Patel CNP, 40 mEq at 05/01/252199 sennosides-docusate sodium (Andree-Colace) 8.6-50 mg per tablet 1 tablet, 1 tablet, oral, BID PRN, Kerline Patel CNP Recent Labs No visits with results within [...] on chronic diastolic congestive heart failure (CMS/HCC) Stage 4 chronic kidney disease (CMS/HCC) Essential (primary) hypertension Coronary artery disease involving northwestern shoshone coronary artery of northwestern shoshone heart without angina pectoris History of coronary artery bypass surgery Primary hypertension #Acute on chronic HFpEF -Recently admitted for [...] to her hx of chronically low K+. -When I saw her 2 weeks ago, she was stable. Dyspnea was improved. -She saw nephro last week, no changes made to medications. -Earlier this week, she reported pulse ox dropping with minimal exertion. CXR was obtained which showed signs of CHF exacerbation. We increased her bumex to 2mg BID. -Today, she notes her sx's have continued to worsen. She c/o dyspnea with minimal exertion, she is SOB talking to me today. She has abdominal bloating, and has had to sleep propped up with 4 pillows.Notable elevated JVD on exam. -Discussed options of outpatient management vs inpatient. Recommend inpatient given her recently worsened renal function with Cr up to 3.35 a few weeks ago and need for close monitoring of renal function and potassium levels with diuresis. Discussed with Dr. Fish who also agrees. She is agreeable with this plan. Arranged for direct admission to [facility]. #HTN -Hypotension resolved -Continue metoprolol 75mg BID, hydralazine 50mg BID, amlodipine 10mg daily. Doxazosin currently on hold, consider resuming pending how her BP does. #CKD stage IV -She follows with Dr. Jenkins #CAD -s/p CABG 07/2020 (discovered in the setting of unstable angina) -She c/o CP. Sx's relieved with nitroglycerin. Direct admitting pt for further work-up. -Continue ASA, statin, BB #Post op a.fib -no recurrence since -RRR On exam -Continue to monitor #Valvular heart disease -Continue to monitor with routine TTEs Follow up after admission. No follow-ups on file. Emilia To CNP documented in this encounter Plan of Treatment DateTypeDepartmentCare Team (Latest Contact Info)Xmpcpzatqqr38/18/2025 10:00 AM ESTFollow-Up [facility] [place] [address] [place] [address] Emilia To, INDUSTRIAL HYGIENE MANAGER [address] [place] [phone] documented as of this encounter Visit Diagnoses Diagnosis Acute on chronic diastolic congestive heart failure (CMS/HCC)- Primary Stage 4 chronic kidney disease (CMS/HCC) Essential (primary) hypertension Unspecified essential hypertension Coronary artery disease involving northwestern shoshone coronary artery of northwestern shoshone heart without angina pectoris History of coronary artery bypass surgery Postsurgical aortocoronary bypass status Primary hypertension Unspecified essential hypertension documented in this encounter Care Teams Team MemberRelationshipSpecialtyStart DateEnd Date John Perdomo DO [address] [place] [address] PCP - Noxdyfu66/8/22documented as of this encounter
--- OUTSIDE RECORDS SUMMARY | 2025-05-01 16:55 | XMS_ITS | Encounter Summary ---
Author Organization [facility] Address [address] [place] [address] Care Team Providers Care Automotive Professional Name Role Phone PerdomoJohn Primary Care Provider [phone] Reason for Referral * Consultation (Routine) - Pending ReviewSpecialtyDiagnoses / ProceduresReferred By ContactReferred To ContactCardiology Diagnoses Chronic diastolic heart failure (CMS/HCC) Procedures [place] OFFICE/OUTPATIENT [facility] 60 MINUTES Eh Higuera MD [facility] [place] [address] Phone: tel: fax: Luis Carrero MD [address] [place] [address] Phone: tel: fax: Referral IDStatusReasonStart DateExpiration DateVisits RequestedVisits [id number] Review Specialty Services Required * Consultation (Routine) - Pending ReviewSpecialtyDiagnoses / ProceduresReferred By ContactReferred To ContactNephrology Diagnoses Chronic diastolic heart failure (CMS/HCC) Procedures [place] OFFICE/OUTPATIENT [facility] 60 MINUTES Eh Higuera MD [address] [place] [address] Phone: tel: fax: Jazzmine Kelsey MD [address] [place] [address] Phone: tel: fax: Referral IDStatusReasonStart DateExpiration DateVisits RequestedVisits [id number] Review Specialty Services Required * Consultation (Routine) - Pending ReviewSpecialtyDiagnoses / ProceduresReferred By ContactReferred To Contact Diagnoses Chronic diastolic heart failure (CMS/HCC) Procedures [place] OFFICE/OUTPATIENT [facility] 60 MINUTES Eh Higuera MD [address] [place] [address] Phone: tel: fax: John Perdomo, [address] [address] Phone: tel: fax: Referral IDStatusReasonStart DateExpiration DateVisits RequestedVisits [id number] * Consultation (Routine) - ClosedSpecialtyDiagnoses / ProceduresReferred By ContactReferred To ContactCardiopulmonary Rehab / CardioPulmonary Rehab Diagnoses Coronary arteriosclerosis Procedures [place] OFFICE/OUTPATIENT [facility] 60 MINUTES Rickey Jackson MD [address] [facility] [address] [facility] [place] [address] Phone: tel: fax: [facility] [address] [place] [address] [place] [address] Phone: tel: fax: Referral IDStatusReasonStart DateExpiration DateVisits RequestedVisits [id number] Specialty Services Required * Consultation (Routine) - ClosedSpecialtyDiagnoses / ProceduresReferred By ContactReferred To ContactCardiopulmonary Rehab / CardioPulmonary Rehab Diagnoses Acute on chronic heart failure with preserved ejection fraction (HFpEF) (CMS/HCC) Procedures [place] OFFICE/OUTPATIENT [facility] 60 MINUTES Bran Fish MD [address] [facility] [address] [place] [address] Phone: tel: fax: [facility] [address] [place] [address] [place] [address] Phone: tel: fax: Referral IDStatusReasonStart DateExpiration DateVisits RequestedVisits [id number] Specialty Services Required * (Routine) - Pending ReviewSpecialtyDiagnoses / ProceduresReferred By Contact Referred To Contact Procedures ECG 12 lead Eh Higuera MD [address] [place] [address] Phone: tel: fax: Referral IDStatusReasonStart DateExpiration DateVisits RequestedVisits [id number] [id number] Reason for Visit * Auth/Cert (Routine)SpecialtyDiagnoses / ProceduresReferred By ContactReferred To Contact Diagnoses Acute on chronic heart failure with preserved ejection fraction (HFpEF) (CMS/HCC) CHF Exacerbation/CKD Procedures NO CODED SERVICES Crispin Galeano MD [address] [place] [address] Phone: tel: fax: [facility] [address] [place] [address] Phone: tel: fax: Referral IDStatusReasonStart DateExpiration DateVisits RequestedVisits [id number] Encounter Details DateTypeDepartmentCare Team (Latest Contact Info)Bwsovchqqqr00/30/2025 5:55 PM EDT - 05/04/2025 4:00 PM ESTHospital Encounter [facility] [address] [place] [address] Crispin Galeano MD [address] [place] [address] Eh Higuera MD [address] [place], [place] [id number] Chronic diastolic heart failure (CMS/HCC) (Primary Dx); Acute on chronic heart failure with preserved ejection fraction (HFpEF) (CMS/HCC); Coronary arteriosclerosis; Essential (primary) hypertension; Goiter Discharge Disposition: Home or Self Care () Social History Tobacco UseTypesPacks/DayYears UsedDateSmoking Tobacco: NeverSmokeless Tobacco: NeverAlcohol UseStandard Drinks/WeekCommentsNot Currently0 (1 standard drink = 0.6 oz pure alcohol)[facility] UtilitiesAnswerDate RecordedIn the past 12 months has the [employer], gas, oil, or water StyleSeat threatened to shut off services in your [...] were you homeless or living in a fdc (including now)? No05/01/2025Hunger Vital SignAnswerDate RecordedWithin the past 12 months, you worried that your food would run out before you got the money to buymore.Never true05/01/2025Ran Out of Food in the Last YearNot on file05/01/2025 CommentsUnknownSex and Gender InformationValueDate RecordedSex Assigned at Tqsfuq0605/19/2022 6:11 PM ESTLegal SfkYqdmku51/30/2022 12:22 AM EDTGender KapubkwaXvwtve44/17/2022 6:11 PM ESTSexual OrientationHeterosexual or Straight 05/19/2022 6:11 PM ESTdocumented as of this encounter Last Filed Vital Signs Vital SignReadingTime TakenCommentsBlood Lswovwsk896/6705/04/2025 12:25 PM EST Hudap332205/04/2025 12:25 PM IQDLtlhjutmwpw92 ??C (98.6 ??F)05/04/2025 12:25 PM ESTRespiratory Vlpb794007/04/2024 12:25 PM ESTOxygen Gxviiddruw96%05/04/2025 12:25 PM ESTInhaled Oxygen Concentration--Aystna81.6 kg (127 lb)05/04/2025 4:43 AM EST Alpucs485.2 cm (4' 8 )05/01/2025 6:01 PM EDTBody Mass Index28.4705/01/2025 6:01 PM EDTdocumented in this encounter Functional Status * QuestionAnswerDate of YoufyfsixzWfzimqTT679/6705/04/2025 12:25 PM Trudy Winston RNPulse7305/04/2025 12:25 PM Trudy Winston RNHeart Rate Source Onbvhid5905/04/2025 12:25 PM Trudy Winston RNPatient PositionLying 05/04/2025 12:25 PM Trudy Winston RN * Silvana Fall RiskQuestionAnswerDate of AssessmentAuthorHistory of Falling, Immediate or Within 3 Tfesct771/02/2025 8:00 AM Trudy Winston RN Secondary Tajxyaako3657/02/2025 8:00 AM Trudy Winston, RNAmbulatory Aid0 05/04/2025 8:00 AM Trudy Winston RNIntravenous Therapy/Heparin Lock20 05/04/2025 8:00 AM Trudy Winston RNGait/Ordcuyakwvxw075/02/2025 8:00 AM Trudy Winston RNMental Tserys526/02/2025 8:00 AM Trudy Winston RN Morse Fall Risk Bvvvu260805/04/2025 8:00 AM Trudy Winston RN * Phill ScaleQuestionAnswerDate of AssessmentAuthorBraden No Risk Interventions Continue to assess patient according to level of care05/04/2025 8:05 AM Trudy Caro, RNSensory Poarfumebwo919/02/2025 8:05 AM Trudy Winston RNMoisture4107/04/2024 8:05 AM Trudy Winston PRYnacuqdn767/02/2025 8:05 AM Trudy Winston RNMobility4107/04/2024 8:05 AM Trudy Winston RN Quboognge797/02/2025 8:05 AM Trudy Winston, RNFriction and Shear3 05/04/2025 8:05 AM Trudy Winston RNBraden Scale Ckeni5364/02/2025 8:05 AM Trudy Winston RN * Cushing Fall Risk InterventionsQuestionAnswerDate of AssessmentAuthor Cushing Fall Risk OxpuzexfbwhkkMpaykmlx52/02/2025 8:00 AM Trudy Winston RN * Pain Assessment TimerQuestionAnswerDate of AssessmentAuthorRestart Pain Assessment DaqsuGfb93/02/2025 8:05 AM Trudy Winston RN * Sepsis Model ScoresQuestionAnswerDate of AssessmentAuthorEarly Detection of Sepsis Score1.611 4:00 PM ESTChronicles, BatchqEarly Detection of Sepsis Score0.511 3:46 PM ESTChronicles, Batchq * Pain AssessmentQuestionAnswerDate of AssessmentAuthorPain Interventions Hsrluwkm54/02/2025 8:05 AM Trudy Winston RNPatient's Stated Pain GoalNo pain05/04/2025 8:05 AM Trudy Winston RNPain AssessmentNo/denies pain 05/04/2025 8:05 AM Trudy Winston RN * Deterioration Index ScoreQuestionAnswerDate of AssessmentAuthorDeterioration Index Score23.7505/04/2025 3:46 PM ESTChronicles, Batchq * Head, Ears, Eyes, Nose, and Throat (HEENT)QuestionAnswerDate of Assessment AuthorHead, Ears, Eyes, Nose, and Throat (WDL)X107/04/2024 8:05 AM Trudy Winston RNR EyeMildly impaired vision;Corrective afeqzz8405/04/2025 8:05 AM Trudy Caro RNL EyeMildly impaired vision;Corrective gflddl6805/04/2025 8:05 AM Trudy Winston RNTonguePink;Moist05/03/2025 8:19 PM Marcos Lyon RNMucous Membrane(s)Moist;Oakhaven;Vwraov8505/03/2025 8:19 PM Marcos Lyon RNTeethIntact05/02/2025 8:10 PM [...] 8:19 PM Marcos Lyon RNShort Portable Mental Nmyeq03307/03/2024 8:19 PM Marcos Lyon RN * Fall [...] PM Jhoana Sims, RNProvider notified of new unqlvGd8105/01/2025 6:01 PM Jhoana Sims, RN * Vital SignsQuestionAnswerDate of QnholaqhudBlmdqrQU712/6705/04/2025 12:25 PM Trudy Winston, NOChfa56.6107/04/2024 12:25 PM Trudy Winston RNTemp qcmKchgxbtr42/02/2025 12:25 PM Trudy Winston OGFkqdx9372/02/2025 12:25 PM Trudy Winston IQSypb1128/02/2025 12:25 PM Trudy Winston, RNSpO2 9605/04/2025 12:25 PM Trudy Winston RNHeart Rate BadbjdBmqilpj15/02/2025 12:25 PM Trudy Winston RNBP LocationRight arm05/04/2025 12:25 PM Trudy Caro RNBP MmrcnrVdkjlxfbv85/02/2025 12:25 PM Trudy Winston RNMAP (mmHg)8205/04/2025 12:25 PM Trudy Winston RNPatient PositionLying 05/04/2025 12:25 PM Trudy Winston, RN * QuestionAnswerDate of AssessmentAuthorSwallowAble to swallow solids and liquids without wwfdaqsqkv83/02/2025 8:05 AM Trudy Winston RN * QuestionAnswerDate of AssessmentAuthorBilateral Breath SoundsClear;Diminished 05/04/2025 8:05 AM Trudy Winston RNRespiratory VftfgzvQtdolk24/02/2025 8:05 AM Trudy Winston RNChest AssessmentChest expansion symmetrical 05/04/2025 8:05 AM Trudy Winston RNRespiratory LllfahNyoqgxaeu10/02/2025 8:05 AM Trudy Winston RNRespiratory Depth/JfbrgdChiqcpa20/02/2025 8:05 AM Trudy Winston RNDyspnea OccurrenceWith cxytgynx58/02/2025 8:05 AM Trudy Caro RN * QuestionAnswerDate of AssessmentAuthorCardiac McsymbOVW31/02/2025 8:05 AM Trudy Caro RNEctopy XdqymsuxmIzvqcvgpnu78/02/2025 8:05 AM Trudy Winston RNCardiac NaqtycsypuAngbefe14/02/2025 8:05 AM Trudy Winston RN Bevel Gear Generator Operator XmgltxLk41/02/2025 8:05 AM Trudy Winston RNTelemetry Box Numberw 92324607/04/2024 8:05 AM Trudy Winston RNJugular Venous Distention [...] Winston RNCyanosisNone107/04/2024 8:05 AM Trudy Winston RNEdema Lqkxhacezde30/02/2025 8:05 AM Trudy Winston, RNPeripheral Vascular Additional AssessmentsRight lower extremity;Left lower extremity;Right upper extremity;Left upper uuveuowox34/02/2025 8:05 AM Trudy Winston RN * RUKaterin Neurovascular AssessmentQuestionAnswerDate of AssessmentAuthorRUE Edema Non-hwerdya5905/04/2025 8:05 AM Trudy Winston RNRUE Capillary RefillLess than/equal to 2 cwxwcuz2905/04/2025 8:05 AM Trudy Winston RNRUE Color Appropriate for zrczxpoda80/02/2025 8:05 AM Trudy Winston RNRUE Temperature/MoistureWarm;05/04/2025 8:05 AM Trudy Winston RNRight Radial Pulse+ 8:05 AM Trudy Winston RN * LUKaterin Neurovascular AssessmentQuestionAnswerDate of AssessmentAuthorLUE Edema Non-gczfhtb9905/04/2025 8:05 AM Trudy Winston RNLUE Capillary RefillLess than/equal to 2 xkabrnr3605/04/2025 8:05 AM Trudy Winston RNLUE Color Appropriate for jtovbuyba58/02/2025 8:05 AM Trudy Winston RNLUE Temperature/MoistureWarm;05/04/2025 8:05 AM Trudy Winston RNLeft Radial Pulse+ 8:05 AM Trudy Winston RN * RLE Neurovascular AssessmentQuestionAnswerDate of AssessmentAuthorRLE Edema Non-fklfrie3505/04/2025 8:05 AM Trudy Winston RNRLE Capillary RefillLess than/equal to 2 sfhhlae8705/04/2025 8:05 AM Trudy Winston, RNRLE Color Appropriate for piomyxrnp19/02/2025 8:05 AM Trudy Winston RNRLE Temperature/MoistureWarm;05/04/2025 8:05 AM Trudy Winston RNRight Posterior Tibial Pulse+ 8:19 PM Marcos Lyon RNRight Pedal Pulse+ 8:05 AM Trudy Winston RN * LLE Neurovascular AssessmentQuestionAnswerDate of AssessmentAuthorLLE Edema Non-sjswmnd9005/04/2025 8:05 AM Trudy Winston RNLLE Capillary RefillLess than/equal to 2 fjlpoaf1605/04/2025 8:05 AM Trudy Winston RNLLE Color Appropriate for oretwzrfx90/02/2025 8:05 AM Trudy Winston RNLLE Temperature/MoistureWarm;Dry05/04/2025 8:05 AM Trudy Winston RNLeft Posterior Tibial Pulse+ 8:19 PM Marcos Lyon RNLeft Pedal Pulse+ 8:05 AM Trudy Winston RN * MusculoskeletalQuestionAnswerDate of AssessmentAuthorMusculoskeletal (WDL)WDL 05/04/2025 8:05 AM Trudy Winston RN * PsychosocialQuestionAnswerDate of AssessmentAuthorPsychosocial (WDL)WDL 05/04/2025 8:05 AM Trudy Winston RN * Silvana Fall RiskQuestionAnswerDate of AssessmentAuthorHistory of Falling, Immediate or Within 3 Homdad884 8:00 AM Trudy Winston RN Secondary Gnmneawek1750/02/2025 8:00 AM Trudy Winston, RNAmbulatory Aid0 05/04/2025 8:00 AM Trudy Winston RNIntravenous Therapy/Heparin Lock20 05/04/2025 8:00 AM Trudy Winston RNGait/Bpkuvthydlpo897/02/2025 8:00 AM Trudy Winston RNMental Smvmvd539/02/2025 8:00 AM Trudy Winston RN Morse Fall Risk Ioyxu817705/04/2025 8:00 AM Trudy Winston RN * Phill ScaleQuestionAnswerDate of AssessmentAuthorBraden No Risk Interventions Continue to assess patient according to level of care05/04/2025 8:05 AM Trudy Caro, RNSensory Xrqatnppfqq526/02/2025 8:05 AM Trudy Winston, NVCptrleny370/02/2025 8:05 AM Trudy Winston, MWZtpvggmy780/02/2025 8:05 AM Trudy Winston, ZECzqiuxax871/02/2025 8:05 AM Trudy Winston RN Fjybpkuon130/02/2025 8:05 AM Trudy Winston, RNFriction and Shear3 05/04/2025 8:05 AM Trudy Winston RNBraden Scale Pyxnb8628/02/2025 8:05 AM Trudy Winston RN * Charting TypeQuestionAnswerDate of AssessmentAuthorCharting TypeShift trupbkazyk48/02/2025 8:05 AM Trudy Winston RN * Cultural Requests During HospitalizationAnswerDate of AssessmentAuthordeclined 05/02/2025 9:00 AM Jhoana Sims RN * Spiritual Requests During HospitalizationAnswerDate of AssessmentAuthor /31/2025 9:00 AM Jhoana Sims RN * GenitourinaryQuestionAnswerDate of AssessmentAuthorUrinary FrequencyAdequate 05/04/2025 8:05 AM Trudy Winston RNGenitourinary (WDL)WDL107/04/2024 8:05 AM Trudy Winston RNUrinary NcrfqqajjdwcUc91/02/2025 8:05 AM Trudy Winston RN * Patient MonitoringQuestionAnswerDate of AssessmentAuthorFrequency of Checks Twice per hour, cpwyoxha90/02/2025 8:00 AM Trudy Winston RN * Safe EnvironmentQuestionAnswerDate of AssessmentAuthorChair AlarmsOff 05/02/2025 8:10 PM Marcos Lyon, CODYrm Bands OnID;Zrsfccvun05/02/2025 8:00 AM Trudy Winston RNSide Rails/Bed Safety2/411 8:00 AM Trudy Caro RNBed FnbltwGnj49/02/2025 8:00 AM Trudy Winston RNThe Patient's Environment is TkiqEbc78/02/2025 8:00 AM Trudy Winston RN * MobilityQuestionAnswerDate of AssessmentAuthorProvider IbxdteaaPqk61/02/2025 8:00 AM Trudy Winston ZVFraflcghkz45/02/2025 12:00 PM Trudy Winston RNActivity PerformedResting in bed;Turn05/04/2025 12:00 PM Trudy Winston RNRepositionedTurns self05/04/2025 12:00 PM Trudy Winston RN Level of MlvusnrkzeSfdyfkwzgqd71/02/2025 8:00 AM Trudy Winston RNHead of Bed ElevatedSelf /02/2025 12:00 PM Trudy Winston RNHeels/Feet Foot of bed wxvznirj35/02/2025 8:00 AM Trudy Winston RNRange of Motion Active;All uhixvylozcr53/02/2025 8:00 AM Trudy Winston RNAnti-Embolism DevicesBilateral;Sequential compression devices, below knee05/04/2025 8:00 AM Trudy Winston, CODYnti-Embolism GaepflyhzzmdSeg44/02/2025 8:00 AM Trudy Caro RNPatient's mobility zoneZone 6107/04/2024 8:00 AM Trudy Winston RNPositioning FrequencyAble to turn self05/04/2025 12:00 PM Trudy Caro RN * HygieneQuestionAnswerDate of AssessmentAuthorSkin CarePer self05/04/2025 8:00 AM Trudy Winston RNHygienePeri care;Per self05/04/2025 12:00 PM Trudy Caro RNOral CarePer self05/03/2025 8:00 AM Trudy Perez RN Level of NaljxhdmkhPmaeexebebh30/02/2025 8:00 AM Trudy Winston RNIs Patient Total Care?No05/04/2025 8:00 AM Trudy Winston RNIncontinence Protective DevicesAbsorbent pad05/04/2025 8:00 AM Trudy Winston RN * PrecautionsQuestionAnswerDate of UkauxpvvnkBwfxsjPfhvrjzpijbFqhz84/02/2025 8:00 AM Trudy Winston RN * Family/Significant Other CommunicationQuestionAnswerDate of AssessmentAuthor Family/Significant Other LxkvrhJcuzhxmg29/01/2025 8:00 AM Trudy Perez RN * Comfort and Environment InterventionsQuestionAnswerDate of AssessmentAuthor VqekseuVjbdzctyjftg73/02/2025 12:00 PM Trudy Winston RN * Safety Equipment at BedsideQuestionAnswerDate of AssessmentAuthorSafety Equipment at AxnjnkxGzmh23/31/2025 9:16 AM Jhoana Sims RN * ADL ScreeningQuestionAnswerDate of AssessmentAuthorDo you snore or wake up gasping for air?No05/01/2025 6:50 PM Ana Davies RNCan you bring in your CPAP/BiPAP from home?N/A1 6:50 PM Ana Davies RNPatient's Vision Adequate to Safely Complete Daily NaxesqbhwlAyr24/30/2025 6:50 PM Ana Davies RNPatient's Judgment Adequate to Safely Complete Daily ActivitiesYes 05/01/2025 6:50 PM Ana Davies RNPatient's Memory Adequate to Safely Complete Daily UcgozeylvcSgl66/30/2025 6:50 PM Ana Davies RNPatient Able to Express Needs/MlojamsArr94/30/2025 6:50 PM Ana Davies RNDressing Atkkjcxzpoq83/30/2025 6:50 PM Ana Davies RNKEStmxwoljJhtuijyxuys35/30/2025 6:50 PM Ana Davies NIZwhdgfvLpulecwertl78/30/2025 6:50 PM Ana Davies RNFZAfhgvpgCbinfpyactb28/30/2025 6:50 PM Ana Davies RNToiletingIndependent 05/01/2025 6:50 PM Ana Davies RNIn/Out AbaXnmcsfqvpnp05/30/2025 6:50 PM Ana Davies RNWalks in QwlkZugofxffddo59/30/2025 6:50 PM Ana Davies RNWeakness of OsnnXfjz04/30/2025 6:50 PM Ana Davies RNWeakness of Arms/NaopvKryf38/30/2025 6:50 PM Ana Davies, BRYCEHearing - Right Ear Idrqujmgdr44/30/2025 6:50 PM Ana Davies RNHearing - Left EarFunctional 05/01/2025 6:50 PM Ana Davies RNWhich is your dominant hand?Right 05/01/2025 6:50 PM Ana Davies, BRYCE * ConsultsQuestionAnswerDate of AssessmentAuthorSpiritual Care Consult NeededNo 05/01/2025 6:51 PM Ana Davies RNSocial Services Consult NeededNo 05/01/2025 6:51 PM Ana Davies RN * Therapy ConsultsQuestionAnswerDate of AssessmentAuthorPT Evaluation Needed1 05/01/2025 6:50 PM Ana Davies RNOT Evaluation Xlxzbj426 6:50 PM Ana Davies RNSLP Evaluation Vuezyt536/30/2025 6:50 PM Ana Davies, BRYCE * Assistive DevicesQuestionAnswerDate of AssessmentAuthorAssistive Devices Bqjqhsxpvc31/30/2025 6:50 PM Ana Davies RN * Cushing Fall Risk InterventionsQuestionAnswerDate of AssessmentAuthor Cushing Fall Risk SrvtdzdspmfryVldjzrhg34/02/2025 8:00 AM Trudy Winston RN * Suicidal IdeationQuestionAnswerDate of AssessmentAuthor1. Wish to be (Lifetime)No05/01/2025 6:51 PM Ana Davies, BRYCE2. Non-Specific Active Suicidal Thoughts (Lifetime)No05/01/2025 6:51 PM Ana Davies RN * Pain AssessmentQuestionAnswerDate of AssessmentAuthorPain Interventions Qieunpoj82/02/2025 8:05 AM Trudy Winston RNPatient's Stated Pain GoalNo pain05/04/2025 8:05 AM Trudy Winston RNPain AssessmentNo/denies pain 05/04/2025 8:05 AM Trudy Winston RN * NutritionQuestionAnswerDate of AssessmentAuthorFluid Nyjfmimvelyu6201 05/04/2025 8:00 AM Trudy Winston RNDiet TypeHeart sqxawmy9605/04/2025 8:00 AM Trudy Winston RNFeedingAble to feed self05/04/2025 8:00 AM Trudy Caro, LJPosftsfsZfbf46/02/2025 8:00 AM Trudy Winston RN * Respiratory InterventionsQuestionAnswerDate of AssessmentAuthorRespiratory Interventions PerformedCough and deep uvxuayj30/02/2025 8:05 AM Trudy Winston RN * Cough and Deep BreatheQuestionAnswerDate of AssessmentAuthorCough and Deep TsdwvxtLiz94/02/2025 8:05 AM Trudy Winston RN * IntegumentaryQuestionAnswerDate of AssessmentAuthorSkin ColorAppropriate for race05/04/2025 8:05 AM Trudy Winston RNSkin Condition/TempWarm;Dry 05/04/2025 8:05 AM Trudy Winston RNSkin OjatjntdqVggvqx62/02/2025 8:05 AM Trudy Winston RNSkin TurgorNon-zpdtbev2305/04/2025 8:05 AM Trudy Winston RNIntegumentary (WDL)X107/04/2024 8:05 AM Trudy Winston RN * QuestionAnswerDate of AssessmentAuthorUrine ColorYellow/straw05/04/2025 10:47 AM Trudy Winston RNUrine KrsuhqduikUbnyb06/02/2025 10:47 AM Trudy Winston RNUrine OdorNo odor05/04/2025 10:47 AM Trudy Winston RN * QuestionAnswerDate of AssessmentAuthorPatient Goal for Treatmentdischarge 05/04/2025 8:05 AM Trudy Winston RN * Patient Strengths/Problem AreasQuestionAnswerDate of AssessmentAuthorStrengths (Must Choose Two)Communication Skills;Supportive Xmtnvz4505/01/2025 6:51 PM Ana Chang RNProblem AreasHealth Problems;Physical Zrrkph2305/01/2025 6:51 PM Ana Davies RN * Environment [...] deficits and behaviors that affect risk of falls;Wells fall precautions as indicated by assessment;Educate patient/family on patient safety, including physical limitations;Consider OT/PT consult to assist with strengthening/mobility;Instruct patient to call for assistance with activity based on assessment;Modify environment to reduce risk of injury;Assess patient frequently for physical needs05/02/2025 9:16 AM Jhoana Sims RN * Modified AldreteQuestionAnswerDate of PiddhxzeqrKqsqbyVdqqnnzy677/ 11:46 AM Ginny Camacho RNRespiration21 11:46 AM Ginny Camacho RNCirculation21 11:46 AM Ginny Camacho RN Vjbnelgjxjobq135/31/2025 11:46 AM Ginny Camacho RNOxygen Saturation1 05/02/2025 11:46 AM Ginny Camacho RNModified Domonique Mohzq350 11:46 AM Ginny Camacho RN * Modified [...] Damon RN * Weight Loss ScoreAnswerDate of ZcjlzwczwkJtlmpn269/30/2025 7:45 PM Li Damon RN * Malnutrition ScoreAnswerDate of LhbqxyhmgiRpgzjt414/30/2025 7:45 PM Li Damon RN documented as of this encounter Mental Status * [place] Agitation Sedation ScaleQuestionAnswerEntry DateAutrRichmond Agitation Sedation Scale (RASS) 11:40 AM Ginny Camacho RN * Modified AldreteQuestionAnswerEntry KktwDpjkrvFrvxsjlu274/31/2025 11:46 AM Ginny Morin RNRespiration21 11:46 AM Ginny Camacho RN Aahhrcyrmqy503/31/2025 11:46 AM Ginny Camacho RNConsciousness2 05/02/2025 11:46 AM Ginny Camacho RNOxygen Ucqzvzbiys142 11:46 AM Ginny Camacho RNModified Domonique Iwzai303 11:46 AM FELIXT Ginny Duff RN documented in this encounter Discharge Summaries * Gela Ness MD - 05/04/2025 4:00 PM EST Images from the original note were not included. Internal Medicine Discharge Summary Final Discharge Diagnosis: Acute on chronic HFrEF Admission Diagnosis: Acute on chronic heart failure with preserved ejection fraction (HFpEF) ([facility]) [I50.33] Hospital course: 75-year-old female with history [...] MOUTH EVERYDAY AT BEDTIME ergocalciferol 1.25 MG (03985 Units) capsule Commonly known as: Vitamin D-2 [...] Your Medications These medications were sent to [facility]/pharmacy #[id number] - [place], [place] - [address] [id number] bumetanide 1 mg tablet levothyroxine 50 mcg tablet metOLazone 2.5 mg tablet sodium bicarbonate 650 mg tablet Caludia is allergic to erythromycin, erythromycin base, hydromorphone, [...] least in part, completed using a voice communication coordinator system. Every effort was made to ensure accuracy. However, inadvertent computerized communication coordinator errors may be present [facility] Medicine 05/04/2025 6:58 PM CC: DO Leanne [...] up with Cardiology (already scheduled) and Nephrology ([facility]). documented in this encounter Discharge Instructions [...] taller/more pillows than normal or in recliner. [phone] documented in this encounter Medications at Time of Discharge MedicationSigDispense QuantityRefillsLast FilledStart DateEnd Date allopurinol (Zyloprim) 100 mg tablet TAKE 1 [...] 90 tablet ergocalciferol (Vitamin D-2) 1.25 MG (07960 UT) capsule Take 1 capsule by mouth 1 (one) time per week. ferrous sulfate 325 (65 Fe) MG tablet TAKE 1 TABLET BY MOUTH EVERY OTHER DAY FOR 90 DAYS folic acid (Folvite) 1 mg tablet Take 1 mg by mouth in the morning. hydrALAZINE (Apresoline) 50 mg tablet Indications:Essential (primary) hypertensionTAKE 1 TABLET BY MOUTH TWO TIMES DAILY. 180 tablet insulin glargine (Lantus) 100 unit/mL (3 mL) pen Inject under the skin.11/05/2019 isosorbide mononitrate ER (Imdur) 30 mg 24 hr tablet Indications:Coronary artery disease involving chipewwa coronary artery of chipewwa heart without angina pectorisTake 1 tablet (30 [...] or >2 pound weight gain.). 90 tablet metoprolol tartrate (Lopressor) 50 mg tablet Indications:Essential (primary) hypertensionTake 1.5 tablets (75 mg) by mouth in the morning and at bedtime.04/15/2025 midodrine (Proamatine) 5 mg tablet Indications:Orthostatic hypotensionTake 1 tablet (5 mg) by mouth if needed (as needed for orthostatic hypotension). 90 tablet 312412/05/2025 nitroglycerin (Nitrostat) 0.4 mg SL tablet Indications:Coronary artery disease of chipewwa artery of chipewwa heart with stable angina pectorisPlace 1 tablet [...] times daily for 197 doses. 60 tablet 502/03/2026documented as of this encounter Progress Notes * [...] and essential hypertension who was admitted to [facility] as a transfer from [facility] on 05/01/2025 after she initially presented with [...] Dose Status allopurinol (Zyloprim) 100 mg tablet [id number] TAKE 1 TABLET BY MOUTH ONCE DAILY FOR 90 DAYS Historical Provider, Active amLODIPine (Norvasc) 10 mg tablet [id number] TAKE 1 TABLET BY MOUTH EVERY DAY Bran Fish MD Active aspirin 81 mg EC tablet [id number] Take 1 tablet every day by oral route. Historical Provider, Active atorvastatin (Lipitor) 40 mg tablet [id number] TAKE 1 TABLET BY MOUTH EVERYDAY AT BEDTIME Bran Fish MD Active bumetanide (Bumex) 2 mg tablet [id number] Take 2 tablets (4 mg) by mouth two times daily. Patient taking differently: Take 2 mg by mouth in the morning. Bran Fish MD Active doxazosin (Cardura) 4 mg tablet [id number] TAKE 1 AND 1/2 TABLETS BY MOUTH TWICE A DAY Patient not taking: Reported on 05/01/2025 Bran Fish MD Active ergocalciferol (Vitamin D-2) 1.25 MG (57716 UT) capsule [id number] Take 1 capsule by mouth 1 (one) time per week. Historical ProviderMD Active ferrous sulfate 325 (65 Fe) MG tablet [id number] TAKE 1 TABLET BY MOUTH EVERY OTHER DAY FOR 90 DAYS Historical Provider, Active folic acid (Folvite) 1 mg tablet [id number] Take 1 mg by mouth in the morning. Historical ProviderMD Active hydrALAZINE (Apresoline) 50 mg tablet [id number] TAKE 1 TABLET BY MOUTH TWO TIMES DAILY. Patient taking differently: Take 50 mg by mouth four times daily. Emilia To CNP Active insulin glargine (Lantus) 100 unit/mL (3 mL) pen [id number] Inject under the skin. Patient taking differently: Inject under the skin if needed. Historical Provider, Active isosorbide mononitrate ER (Imdur) 30 mg 24 hr tablet [id number] Take 1 tablet (30 mg) by mouth once daily as directed. Do not crush or chew. Bran Fish MD Active levothyroxine (Synthroid, Levoxyl) 50 mcg tablet [id number] Take 1 tablet by mouth in the morning. Patient taking differently: Take 75 mcg by mouth in the morning. Historical ProviderMD Active metOLazone (Zaroxolyn) 2.5 mg tablet [id number] TAKE 1 TABLET BY MOUTH IF NEEDED FOR SWELLING OR WEIGHT GAIN Patient not taking: Reported on 05/01/2025 Bran Fish MD Active metoprolol tartrate (Lopressor) 50 mg tablet [id number] Take 1.5 tablets (75 mg) by mouth in the morning and at bedtime. Patient taking differently: Take 50 mg by mouth in the morning and at bedtime. Emilia To CNP Active midodrine (Proamatine) 5 mg tablet [id number] Take 1 tablet (5 mg) by mouth if needed (as needed for orthostatic hypotension). Patient not taking: Reported on 05/01/2025 Bran Fish MD Active nitroglycerin (Nitrostat) 0.4 mg SL tablet [id number] Place 1 tablet (0.4 mg) under the tongue every 5 (five) minutes if needed for chest pain. Bran Fish MD Active potassium chloride CR (Klor-Con M20) 20 mEq ER tablet [id number] Take 40 mEq by mouth in the [...] Agent, Strain, 3D, Bubble Study 1 1 [facility] Heart Station [address] [place] [address] [phone] (fax) Echocardiogram-[facility] Name: CLAUDIA POLO Study Date: 05/02/2025 07:57 AM B/P: 164 mmHg/64 mmHg HR: 72 bpm Date of : 1950 Location: [facility] Height: 56 in. Age: 75 year(s) [...] No pericardial effusion. Procedure Staff Reading Group: [facility] Referring Physician: JOHN PERDOMO Arc Furnace Operator: Jessica Bain [facility] Ordering Physician: EH HIGUERA Cardiac catheterization Cardiovascular [...] This was exchanged out for a 6 Surinamese 11 cm sheath. Right heart catheterization was [...] CKD stage 4. Ur protein/Cr ratio: 2.65. Iqtbw-wg-myqoazz heart failure exacerbation. Triple-vessel CAD demonstrated on [...] you. Johnny Hines MD PGY-3, Internal Medicine [facility] Cosigned by Jazzmine Kelsey MD at 05/04/2025 [...] Faculty, Division of Nephrology, Department of Medicine, [facility] & [facility] Sciences. * Robson White MD - 05/04/2025 [...] Denies chest pain or dyspnea. Discomfort at [facility] site with bruising on right neck. Feels a lot better. Awaiting nephro input. Subjective: Claudia Polo is a 75 y.o. female with a past medical history notable for hypertension, HFpEF, CAD s/p CABG 2020, hyperlipidemia, CKD 4, and diabetes who presents from [facility] cardiology clinic due to worsening dyspnea on [...] Value Ventricular Rate 74 Atrial Rate 74 NV Interval 168 QRS DURATION 68 QT Interval 410 QTC CALCULATION(BAZETT) 455 P Wall[place] 64 R-Wallula 15 T Wave Wall[place] 103 Impression Normal sinus rhythm Abnormal QRS-T [...] Bubble Study Result Date: 05/02/2025 1 1 [facility] Heart Station [address] [place] [address] [phone] (fax) Echocardiogram-[facility] Name: CLAUDIA POLO Study Date: 05/02/2025 07:57 AM B/P: 164 mmHg/64 mmHg HR: 72 bpm Date of : 1950 Location: [facility] Height: 56 in. Age: 75 year(s) [...] No pericardial effusion. Procedure Staff Reading Group: [facility] Referring Physician: JOHN PERDOMO Arc Furnace Operator: HALLE Jacob Ordering Physician: EH HIGUERA No [...] Agent, Strain, 3D, Bubble Study 1 1 [facility] Heart Station [address] [place] [address] [phone] (fax) Echocardiogram-[facility] Name: CLAUDIA POLO Study Date: 05/02/2025 07:57 AM B/P: 164 mmHg/64 mmHg HR: 72 bpm Date of : 1950 Location: [facility] Height: 56 in. Age: 75 year(s) [...] No pericardial effusion. Procedure Staff Reading Group: [facility] Referring Physician: JOHN PERDOMO Arc Furnace Operator: Jessica Bain [facility] Ordering Physician: EH HIGUERA Cardiac catheterization Cardiovascular [...] This was exchanged out for a 6 Surinamese 11 cm sheath. Right heart catheterization was [...] hold given eGFR < 20 Continuous cardiac collar tailor & Replace electrolytes per protocol, ensure K>4 [...] the encounter with Cindy Duenas and Dr. Luis, performed the caceres portion(s) of the service and participated in the management and confirm the resident's documentation. Please note there may be an additional personal documentation from me. * Henrry Rivera MD - 05/03/2025 11:23 AM EDT Images from the original note were not included. [facility] Daily Progress Note - 05/03/2025 11:32 AM; Room: [address] [place] [address] Admission: 05/01/2025 5:55 PM; Length of stay: 2 days Code Status: Full Code Discharge Destination: TBD Discharge planning: TBD Overview Patient is seen for evaluation and management of heart failure exacerbation. Claudia Polo is an 75 y.o. female who came from [facility] with prior history of hypertension and diabetes, [...] fever. She was advised to come to [facility] for CHF exacerbation. Subjective The patient [...] heart failure with preserved ejection fraction (HFpEF) ([facility]) Active Problems: Hypertensive disorder Stage 4 chronic kidney disease ([facility]) Type 2 diabetes mellitus ([facility]) Assessment and Plan Acute on chronic heart [...] 4.54 05/02/2025 Lab Results Component Value Date [id number] 424 05/02/2025 IRON 53 05/02/2025 TIBC 235 [...] Agent, Strain, 3D, Bubble Study 1 1 [facility] Heart Station [address] [place] [address] [phone] (fax) Echocardiogram-[facility] Name: CLAUDIA POLO Study Date: 05/02/2025 07:57 AM B/P: 164 mmHg/64 mmHg HR: 72 bpm Date of : 1950 Location: [facility] Height: 56 in. Age: 75 year(s) [...] No pericardial effusion. Procedure Staff Reading Group: [facility] Referring Physician: JOHN PERDOMO Arc Furnace Operator: Jessica Bain [facility] Ordering Physician: EH HIGUERA Cardiac catheterization Cardiovascular [...] This was exchanged out for a 6 Surinamese 11 cm sheath. Right heart catheterization was [...] Henrry Rivera MD Internal Medicine Resident, PGY1 [facility] 05/03/2025 11:32 AM Cosigned by Eh Higuera [...] Denies chest pain or dyspnea. Discomfort at [facility] site with bruising on right neck. Feels a lot better. Awaiting nephro input. Subjective: Claudia Polo is a 75 y.o. female with a past medical history notable for hypertension, HFpEF, CAD s/p CABG 2020, hyperlipidemia, CKD 4, and diabetes who presents from [facility] cardiology clinic due to worsening dyspnea on [...] Value Ventricular Rate 74 Atrial Rate 74 NV Interval 168 QRS DURATION 68 QT Interval 410 QTC CALCULATION(BAZETT) 455 P Wall[place] 64 R-Wallula 15 T Wave Wall[place] 103 Impression Normal sinus rhythm Abnormal QRS-T [...] Bubble Study Result Date: 05/02/2025 1 1 [facility] Heart Station [address] [facility] [place], [place] [phone] (fax) Echocardiogram-[facility] Name: CLAUDIA POLO Study Date: 05/02/2025 07:57 AM B/P: 164 mmHg/64 mmHg HR: 72 bpm Date of : 1950 Location: [facility] Height: 56 in. Age: 75 year(s) [...] No pericardial effusion. Procedure Staff Reading Group: [facility] Referring Physician: JOHN PERDOMO Arc Furnace Operator: HALLE Jacob Ordering Physician: EH HIGUERA No [...] Agent, Strain, 3D, Bubble Study 1 1 [facility] Heart Station [address] [id number] [phone] (fax) Echocardiogram-[facility] Name: CLAUDIA POLO Study Date: 05/02/2025 07:57 AM B/P: 164 mmHg/64 mmHg HR: 72 bpm Date of : 1950 Location: [facility] Height: 56 in. Age: 75 year(s) [...] No pericardial effusion. Procedure Staff Reading Group: [facility] Referring Physician: JOHN PERDOMO Arc Furnace Operator: HALLE Jacob Ordering Physician: EH HIGUERA Cardiac [...] This was exchanged out for a 6 Surinamese 11 cm sheath. Right heart catheterization was [...] hold given eGFR < 20 Continuous cardiac collar tailor & Replace electrolytes per protocol, ensure K>4 & Mg>2 Remainder of care as per primary team and other consulting services Okay for discharge from cardiac standpoint, will need to follow-up with cardiology in the outpatient setting This note was, at least in part, completed using a voice communication coordinator system. Every effort was made to ensure accuracy. However, inadvertent computerized communication coordinator errors may be present. Seven Tapia MD PGY-2 Internal Medicine Cardiology Consult Service [facility] [1] Current Facility-Administered Medications: acetaminophen (Tylenol) tablet [...] Progress Note - 05/02/2025 2:35 PM; Room: [address] [place] [address] Admission: 05/01/2025 5:55 PM; Length of stay: 1 days Code Status: Full Code Discharge Destination: TBD Discharge planning: TBD Overview Patient is seen for evaluation and management of heart failure exacerbation. Claudia Polo is an 75 y.o. female who came from [facility] with prior history of hypertension and diabetes, [...] fever. She was advised to come to [facility] for CHF exacerbation. Subjective Patient was seen and examined at bedside. Afebrile, hemodynamically stable, starting well on 2 L per nasal cannula. Patient reports she does not use oxygen at home but believes it will help her with her daily functioning. Patient reports she was recently discharged from [facility] due to a CHF exacerbation. She states [...] heart failure with preserved ejection fraction (HFpEF) ([facility]) Active Problems: Hypertensive disorder Stage 4 chronic kidney disease ([facility]) Type 2 diabetes mellitus ([facility]) Assessment and Plan Acute on chronic heart [...] TSH 4.54 05/02/2025 No results found for: [id number] , IRON , TIBC , C3 , [...] Agent, Strain, 3D, Bubble Study 1 1 [facility] Heart Station [address] [phone] (fax) Echocardiogram-[facility] Name: CLAUDIA POLO Study Date: 05/02/2025 07:57 AM B/P: 164 mmHg/64 mmHg HR: 72 bpm Date of : 1950 Location: [facility] Height: 56 in. Age: 75 year(s) [...] No pericardial effusion. Procedure Staff Reading Group: [facility] Referring Physician: JOHN PERDOMO Arc Furnace Operator: Jessica Bain [facility] Ordering Physician: EH HIGUERA Cardiac catheterization Cardiovascular [...] This was exchanged out for a 6 Surinamese 11 cm sheath. Right heart catheterization was [...] Grey Johns MD Internal Medicine Resident, PGY1 [facility] Medicine 05/02/2025 2:35 PM Cosigned by Eh [...] AM EDT Rickey Jackson MD, MPH, FACC, [facility], [facility] Interventional Cardiology Pager Email: [email or web address] Source Note - Bran Fihs MD - 04/07/2025 3:00 PM EDT Images from the original note were not included. [place] Cardiology - [facility] Subjective Claudia Polo is a 74 [...] Rfl: 3 ergocalciferol (Vitamin D-2) 1.25 MG (38147 UT) capsule, Take 1 capsule by mouth [...] two times daily. Coronary artery disease involving chipewwa coronary artery of chipewwa heart without angina pectoris Essential (primary) hypertension [...] AM THE HOSPITALIST TEAM PREFERS TO USE [employer] CHAT FOR NON-URGENT COMMUNICATION 7AM- 7PM. IF I DO NOT RESPOND WITHIN 20 MINUTES OR URGENT MATTERS, PLEASE CALL THROUGH THE [place] MECHANIC. FROM 7PM-7AM, PLEASE PAGE [phone](COVR). Chief Complaint SOB History of Present Illness Claudia Polo is an 75 y.o. female who came from [facility] with prior history of hypertension and diabetes, [...] fever. She was advised to come to [facility] for CHF exacerbation. Review of System [...] heart failure with preserved ejection fraction (HFpEF) ([facility]) Start Bumex 2mg IV BID Weigh patient daily Fluid restriction Cardiology consult NPO at midnight for possible right heart cath Hypertensive disorder Resume home medications Stage 4 chronic kidney disease ([facility]) Monitor kidney functions Avoid nephrotoxic drugs Appreciate nephrology recommendations Type 2 diabetes mellitus ([facility]) Glucose management protocol Sliding scale Hypoglycemia management [...] this hospital stay by a member of [facility] Medicine. Past Medical History Medical History[1] Past [...] MAGNESIUM Imaging XR chest lateral decubitus Narrative: [facility] Department of Radiology [address] [place] [address] Junior akhtar Name: CLAUDIA POLO [...] suggested Electronically signed: Marli Seo. Transcribed by: [email or web address], User Resident: Electronically Signed by: MARLI SEO @ 07/27/2020 01:07 PM [facility]igned [facility] 05/02/2025 12:34 AM [1] Past Medical [...] tablet 3 ergocalciferol (Vitamin D-2) 1.25 MG (76285 UT) capsule Take 1 capsule by mouth [...] and essential hypertension who was admitted to [facility] as a transfer from [facility] on 05/01/2025 after she initially presented with [...] Dose Status allopurinol (Zyloprim) 100 mg tablet [id number] TAKE 1 TABLET BY MOUTH ONCE DAILY FOR 90 DAYS Historical MD Marcelo Active amLODIPine (Norvasc) 10 mg tablet [id number] TAKE 1 TABLET BY MOUTH EVERY DAY Bran Fish MD Active aspirin 81 mg EC tablet [id number] Take 1 tablet every day by oral route. Drea Robertson MD Active atorvastatin (Lipitor) 40 mg tablet [id number] TAKE 1 TABLET BY MOUTH EVERYDAY AT BEDTIME Bran Fish MD Active bumetanide (Bumex) 2 mg tablet [id number] Take 2 tablets (4 mg) by mouth two times daily. Patient taking differently: Take 2 mg by mouth in the morning. Bran Fish MD Active doxazosin (Cardura) 4 mg tablet [id number] TAKE 1 AND 1/2 TABLETS BY MOUTH TWICE A DAY Patient not taking: Reported on 05/01/2025 Bran Fish MD Active ergocalciferol (Vitamin D-2) 1.25 MG (90426 UT) capsule [id number] Take 1 capsule by mouth 1 (one) time per week. Drea Robertson MD Active ferrous sulfate 325 (65 Fe) MG tablet [id number] TAKE 1 TABLET BY MOUTH EVERY OTHER DAY FOR 90 DAYS Historical MD Marcelo Active folic acid (Folvite) 1 mg tablet [id number] Take 1 mg by mouth in the morning. Drea ProviderMD Active hydrALAZINE (Apresoline) 50 mg tablet [id number] TAKE 1 TABLET BY MOUTH TWO TIMES DAILY. Patient taking differently: Take 50 mg by mouth four times daily. Emilia To, IRISH Active insulin glargine (Lantus) 100 unit/mL (3 mL) pen [id number] Inject under the skin. Patient taking differently: Inject under the skin if needed. Historical Provider, Active isosorbide mononitrate ER (Imdur) 30 mg 24 hr tablet [id number] Take 1 tablet (30 mg) by mouth once daily as directed. Do not crush or chew. Bran Fish MD Active levothyroxine (Synthroid, Levoxyl) 50 mcg tablet [id number] Take 1 tablet by mouth in the morning. Patient taking differently: Take 75 mcg by mouth in the morning. Historical Provider, Active metOLazone (Zaroxolyn) 2.5 mg tablet [id number] TAKE 1 TABLET BY MOUTH IF NEEDED FOR SWELLING OR WEIGHT GAIN Patient not taking: Reported on 05/01/2025 Bran Fish MD Active metoprolol tartrate (Lopressor) 50 mg tablet [id number] Take 1.5 tablets (75 mg) by mouth in the morning and at bedtime. Patient taking differently: Take 50 mg by mouth in the morning and at bedtime. Emilia To CNP Active midodrine (Proamatine) 5 mg tablet [id number] Take 1 tablet (5 mg) by mouth if needed (as needed for orthostatic hypotension). Patient not taking: Reported on 05/01/2025 Bran Fish MD Active nitroglycerin (Nitrostat) 0.4 mg SL tablet [id number] Place 1 tablet (0.4 mg) under the tongue every 5 (five) minutes if needed for chest pain. Bran Fish MD Active potassium chloride CR (Klor-Con M20) 20 mEq ER tablet [id number] Take 40 mEq by mouth in the [...] in the setting of CKD stage 4. Hixdk-me-[id number] heart failure exacerbation. Triple-vessel CAD demonstrated on [...] you. Johnny Hines MD PGY-3, Internal Medicine [facility] [1] Allergies Allergen Reactions Erythromycin Other Erythromycin [...] Faculty, Division of Nephrology, Department of Medicine, [facility] & [facility] Sciences. 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 [...] To reach the Clinical Dietitian, please utilize [employer] chat Monday-Monday from 8AM-4PM or call extension [phone]. For weekends (Monday-Monday) and holidays, the Clinical Dietitian can be reached via pager ([phone]) from 9AM-3PM. The Clinical Nutrition Department is unable to respond to [employer] chat messages on Sundays and s. [1] [...] CKD 4, and diabetes who presents from [facility] cardiology clinic due to worsening dyspnea on [...] history of CHF (congestive heart failure) ([facility]), Chronic kidney disease,Coronary artery disease, Diabetes mellitus ([facility]), and Hypertension. Surgical History She has a [...] times daily ergocalciferol (Vitamin D-2) 1.25 MG (50617 UT) capsule 1 capsule, Weekly ferrous sulfate [...] Imaging Results XR chest lateral decubitus Narrative: [facility] Department of Radiology [address] [place] [phone] Patien t Name: CLAUDIA POLO : [...] suggested Electronically signed: Marli Seo. Transcribed by: [email or web address], User Resident: Electronically Signed by: MARLI SEO [...] least in part, completed using a voice communication coordinator system. Every effort was made to ensure accuracy. However, inadvertent computerized communication coordinator errors may be present. Seven Tapia MD PGY-2 Internal Medicine Cardiology Consult Service [facility] [1] Medications Prior to Admission Medication Sig [...] tablet 3 ergocalciferol (Vitamin D-2) 1.25 MG (47096 UT) capsule Take 1 capsule by mouth [...] and behaviors that affect risk of falls Wells fall precautions as indicated by assessment Educate [...] Date/Time: 05/02/25929 Procedure: Right heart cath Location: [facility] PHOTO LAB MANAGER 2 [place] [facility] (Cath) Providers: Rickey Jackson MD [...] 11:12 AM EDT Rickey Jackson MD, MPH, [facility], [facility], [facility] Interventional Cardiology Pager Email: [email or web address] * Care Plan - Benja Degroot RN - 05/02/2025 1:40 AM EDT The patient is Moderately Stable - Low risk of patient condition declining or worsening The patient's goals for the shift include comfort and rest The clinical goals for the shift include stable VS * Assessment & Plan Note - Kerline [...] Plan of Treatment DateTypeDepartmentCare Team (Latest Contact Info)Udcodqjcgrc52/18/2025 10:00 AM [facility] [address] [phone] Emilia To CNP [address] [place] [phone] NameTypePriorityAssociated DiagnosesOrder ScheduleCBCLabRoutine Chronic diastolic heart failure [...] to NephrologyOutpatient ReferralRoutine Chronic diastolic heart failure ([facility]) Expected: 05/11/2025 (Approximate), Expires: 10/31/2025mbulatory referral to CardiologyOutpatient ReferralRoutine Chronic diastolic heart failure ([facility]) Expected: 05/11/2025 (Approximate), Expires: 10/31/2025documented as of this encounter Procedures Procedure NamePriorityDate/TimeAssociated DiagnosisCommentsPOCT GLUCOSE METER UNSOLICITED RKFWNYVBygyxco72/02/2025 11:23 AM EST CBCPending Wjakquqtr37/02/2025 8:02 AM EST BASIC METABOLIC PANELPending Isdomhscy33/02/2025 8:02 AM EST POCT GLUCOSE METER UNSOLICITED SLCEKFOOymwyqy33/01/2025 8:12 PM EDT POCT GLUCOSE METER UNSOLICITED BIDKROYTibmufz96/01/2025 4:41 PM EDT PROTEIN, URINE, RANDOMPending Ecleweknh04/01/2025 3:01 PM EDT CREATININE, URINE, RANDOMPending Toikmslhr57/01/2025 3:01 PM EDT URINALYSIS MICROSCOPICPending Ubhgjbkbz02/01/2025 3:01 PM EDT URINALYSISPending Qtyhqahgw96/01/2025 3:01 PM EDT HOME O2 EVAL (DESATURATION SCREEN)Jjwmewa2005/03/2025 12:19 PM EDTPOCT GLUCOSE METER UNSOLICITED PQQKPKMGumaeux98/01/2025 11:41 AM EDT POCT GLUCOSE METER UNSOLICITED CFEPHYZOzjozoj86/01/2025 7:59 AM EDT CBCPending Yefslljtv72/01/2025 7:15 AM EDT PHOSPHORUSAdd-On05/03/2025 7:15 AM EDT PTH, INTACTAdd-On05/03/2025 7:15 AM EDT BASIC METABOLIC PANELPending Njvtexcrt72/01/2025 7:15 AM EDT POCT GLUCOSE METER UNSOLICITED HTMXCOORlframv59/31/2025 8:10 PM EDT POCT GLUCOSE METER UNSOLICITED VCSHPJVMyyshnp66/31/2025 5:37 PM EDT XR CHEST 1 TQXHFysdzri05/31/2025 2:14 PM EDT POCT GLUCOSE METER UNSOLICITED ZPXONJJPzhhhkw03/31/2025 12:18 PM EDT RIGHT HEART AAGIAsahttt71/31/2025 11:44 AM EDT Acute on chronic heart failure with preserved ejection fraction (HFpEF) ([facility]) %NPX4Nshffbx96/31/2025 11:42 AM EDT ECG 12-UMSWSzfoywv39/31/2025 9:14 AM EDT COMPLETE ECHO (TTE)Slhkckz8905/02/2025 8:30 AM EDT TSH3 REFLEX TO GP2Owf-Re34/31/2025 5:46 AM EDT IRON AND TIBCAdd-On05/02/2025 5:46 AM EDT RETICULOCYTE PANELAdd-On05/02/2025 5:46 AM EDT SKUNzkzobg47/31/2025 5:46 AM EDT FOLATEAdd-On05/02/2025 5:46 AM EDT FERRITINAdd-On05/02/2025 5:46 AM EDT VITAMIN B87Zqr-Ha05/31/2025 5:46 AM EDT BASIC METABOLIC PSLZQKeirxjk06/31/2025 5:46 AM EDT FCLPQBS6805/02/2025 12:24 AM EDT B-TYPE NATRIURETIC EOFFMONPVEA26/31/2025 12:24 AM EDT LHNYFQNLWLAEO70/31/2025 12:24 AM EDT BASIC METABOLIC ACAZXDIBZ56/31/2025 12:24 AM EDT documented in this encounter Results * (ABNORMAL) POCT glucose meter (05/04/2025 11:23 AM EST)ComponentValueRef Range Test MethodAnalysis TimePerformed AtPathologist SignatureGlucose NHH131(H)70 - 105 mg/dL05/04/2025 11:35 AM [facility] ([facility])Comment:jarizme Specimen (Source)Anatomical Location / LateralityCollection Method / Volume Collection TimeReceived TimeBloodCapillary blood specimen / Hfozrkm3305/04/2025 11:23 AM EST05/04/2025 11:35 AM EST Narrative [facility] ([facility]) - 05/04/2025 11:35 AM EST Waived Testing in the ED is performed under the ED CLIA certificate #[id number]. Authorizing ProviderResult TypeResult StatusNicchelsea SNEED BLOOD ORDERABLESFinal ResultPerforming OrganizationAddressCity/State/ZIP CodePhone Number [facility] ([facility]) [address], [place] [id number] * (ABNORMAL) Basic metabolic panel (05/04/2025 8:02 AM EST)ComponentValueRef RangeTest MethodAnalysis TimePerformed AtPathologist XsozwoeazXkwxvk255109 - 145 mmol/L107/04/2024 8:41 AM [facility] ([facility])Potassium4.03.5 - 5.1 mmol/L107/04/2024 8:41 AM [facility] ([facility])Leszvvfa16717 - 107 mmol/L107/04/2024 8:41 AM [facility] ([facility])IQ52620 - 31 mmol/L 05/04/2025 8:41 AM [facility] ([facility])BUN64(H)7 - 25 mg/dL05/04/2025 8:41 AM [facility] ([facility])Creatinine2.55(H)0.60 - 1.20 mg/dL 05/04/2025 8:41 AM [facility] ([facility])Enlgjiz147(H)70 - 100 mg/dL 05/04/2025 8:41 AM [facility] ([facility])Calcium8.68.6 - 10.3 mg/dL 05/04/2025 8:41 AM [facility] ([facility])Anion Fxc812 - 20 mmol/L 05/04/2025 8:41 AM [facility] ([facility])eGFR19.2(L)>60.0 mL/min/1.73m* 8:41 AM [facility] ([facility])Comment:The [facility]???s estimated glomerular filtration rate (eGFR) will no [...] one group of individuals.BUN/Creatinine Ratio25. 8:41 AM [facility] ([facility])Specimen (Source)Anatomical Location / LateralityCollection Method / VolumeCollection TimeReceived TimeBloodVenous blood specimen / Unknown Venipuncture / Mlflqkj8405/04/2025 8:02 AM EST05/04/2025 8:15 AM EST Narrative Authorizing ProviderResult TypeResult StatusNicchelsea Higuera MDLAB BLOOD ORDERABLESFinal ResultPerforming OrganizationAddressCity/State/ZIP CodePhone Number [facility] ([facility]) [address] [place] [address] * (ABNORMAL) CBC (05/04/2025 8:02 AM EST)ComponentValueRef RangeTest Method Analysis TimePerformed AtPathologist SignatureAuto WBC8.264.00 - 10.60 10*3/uL 05/04/2025 8:28 AM [facility] ([facility])RBC2.89(L)3.80 - 5.00 10*6/uL 05/04/2025 8:28 AM [facility] ([facility])Hemoglobin8.6(L)12.0 - 15.0 g/dL05/04/2025 8:28 AM [facility] ([facility])Jxqcegzxpp25.0(L)36.0 - 45.0 %05/04/2025 8:28 AM [facility])MCV90.082.0 - 98.0 fL 05/04/2025 8:28 AM [facility])MCH29.827.0 - 33.0 pg 05/04/2025 8:28 AM [facility])MCHC33.132.0 - 35.0 g/dL 05/04/2025 8:28 AM [facility] ([facility])RDW15.6(H)11.5 - 15.0 % 05/04/2025 8:28 AM [facility])Ltvfuuhzr968773 - 400 10*3/uL 05/04/2025 8:28 AM [facility] ([facility])Specimen (Source)Anatomical Location / LateralityCollection Method / VolumeCollection TimeReceived Time BloodVenous blood specimen / UnknownVenipuncture / Howcshd7405/04/2025 8:02 AM EST05/04/2025 8:16 AM EST Narrative Authorizing ProviderResult TypeResult StatusNicchelsea SNEED BLOOD ORDERABLESFinal ResultPerforming OrganizationAddressCity/State/ZIP CodePhone Number [facility] ([facility]) [address] [place] [address] * (ABNORMAL) POCT glucose meter (05/03/2025 8:12 PM EDT)ComponentValueRef Range Test MethodAnalysis TimePerformed AtPathologist SignatureGlucose LVD710(H)70 - 105 mg/dL05/03/2025 8:24 PM [facility] ([facility])Comment:[email or web address] Specimen (Source)Anatomical Location / LateralityCollection Method / Volume Collection TimeReceived TimeBloodCapillary blood specimen / Hxwsljg9305/03/2025 8:12 PM EDT107/03/2024 8:24 PM EDT Narrative [facility] ([facility]) - 05/03/2025 8:24 PM EDT Waived Testing in the ED is performed under the ED CLIA certificate #[id number]. Authorizing ProviderResult TypeResult Meliton SNEED BLOOD ORDERABLESFinal ResultPerforming OrganizationAddressCity/State/ZIP CodePhone Number [facility] ([facility]) [address] [place] [address] * (ABNORMAL) POCT glucose meter (05/03/2025 4:41 PM EDT)ComponentValueRef Range Test MethodAnalysis TimePerformed AtPathologist SignatureGlucose IPJ000(H)70 - 105 mg/dL05/03/2025 4:59 PM EDTCL[facility] ([facility])Comment:spegish3 Specimen (Source)Anatomical Location / LateralityCollection Method / Volume Collection TimeReceived TimeBloodCapillary blood specimen / Yrtbmfm5405/03/2025 4:41 PM EDT107/03/2024 4:59 PM EDT Narrative [facility] ([facility]) - 05/03/2025 4:59 PM EDT Waived Testing in the ED is performed under the ED CLIA certificate #[id number]. Authorizing ProviderResult TypeResult Meliton SNEED BLOOD ORDERABLESFinal ResultPerforming OrganizationAddressCity/State/ZIP CodePhone Number [facility] ([facility]) [address] [place] [address] * (ABNORMAL) Urinalysis microscopic (05/03/2025 3:01 PM EDT)ComponentValueRef RangeTest MethodAnalysis TimePerformed AtPathologist SignatureRBC, Urine3-5(A) None Seen, 0-2 /HPF05/03/2025 3:25 PM [facility] ([facility])WBC, Urine 0-2None Seen, 0-2 /HPF05/03/2025 3:25 PM [facility] ([facility])Squamous Epithelial, UrineFewNone Seen, Occasional, Few /LPF107/03/2024 3:25 PM [facility] ([facility])Mucus, UrineOccasionalNone Seen, Occasional, Few /LPF 05/03/2025 3:25 PM [facility] ([facility])Specimen (Source)Anatomical Location / LateralityCollection Method / VolumeCollection TimeReceived Time UrineUrine specimen obtained by clean catch procedure / UnknownNon-blood Collection / Pslgalj3205/03/2025 3:01 PM EDT107/03/2024 3:10 PM EDT Narrative Authorizing ProviderResult TypeResult StatusMuhammakevon SNEED URINE ORDERABLESFinal ResultPerforming OrganizationAddressCity/State/ZIP CodePhone Number [facility] ([facility]) [address] [place] [address] * (ABNORMAL) Urinalysis (05/03/2025 3:01 PM EDT)ComponentValueRef RangeTest MethodAnalysis TimePerformed AtPathologist SignatureColor, UrineLight-Yellow Colorless, Yellow, Light-Lmcbrr2005/03/2025 3:25 PM [facility] ([facility])Clarity, JswxxVwphsSbnuv32/01/2025 3:25 PM [facility] ([facility])pH, Urine5.05.0 - 8.0 pH05/03/2025 3:25 PM [facility] ([facility])Leukocytes, WudcaFauuesioHveiltce55/01/2025 3:25 PM [facility] ([facility])Nitrite, MwnwcKlfssibrOpfirbix95/01/2025 3:25 PM [facility] ([facility])Protein, Urine30(A)Negative mg/dL05/03/2025 3:25 PM [facility] ([facility])Glucose, UrineNormalNormal mg/dL05/03/2025 3:25 PM EDT [facility] ([facility])Bilirubin, NkahyOviiwqgvYiuifaab83/01/2025 3:25 PM [facility] ([facility])Specific [place], Urine1.008(L)1.010 - 1.030 05/03/2025 3:25 PM [facility] ([facility])Ketones, UrineNegativeNegative mg/dL05/03/2025 3:25 PM [facility] ([facility])Blood, UrineNegative Ayhspwhm11/01/2025 3:25 PM [facility] ([facility])Urobilinogen, Urine NormalNormal mg/dL05/03/2025 3:25 PM [facility] ([facility])Specimen (Source)Anatomical Location / LateralityCollection Method / VolumeCollection TimeReceived TimeUrineUrine specimen obtained by clean catch procedure / UnknownNon-blood Collection / Ackwmkv7905/03/2025 3:01 PM EDT107/03/2024 3:10 PM EDT Narrative Authorizing ProviderResult TypeResult StatusMumora SNEED URINE ORDERABLESFinal ResultPerforming OrganizationAddressCity/State/ZIP CodePhone Number [facility]) [address], [place] [phone] * Creatinine, urine, random (05/03/2025 3:01 PM EDT)ComponentValueRef RangeTest MethodAnalysis TimePerformed AtPathologist SignatureCreatinine, Ur40.026 - 299 mg/dL05/03/2025 3:31 PM [facility] ([facility])Specimen (Source) Anatomical Location / LateralityCollection Method / VolumeCollection Time Received TimeUrineUrine specimen obtained by clean catch procedure / Unknown Non-blood Collection / Tjnmbrw0905/03/2025 3:01 PM EDT107/03/2024 3:10 PM EDT Narrative Authorizing ProviderResult TypeResult StatusMumora SNEED URINE ORDERABLESFinal ResultPerforming OrganizationAddressCity/State/ZIP CodePhone Number [facility]) [address] [place] [address] * Protein, urine, random (05/03/2025 3:01 PM EDT)ComponentValueRef RangeTest MethodAnalysis TimePerformed AtPathologist SignatureProtein, Ur105.9mg/dL 05/03/2025 3:31 PM [facility] ([facility])Comment:There are no established reference values for random urine specimens.Specimen (Source) Anatomical Location / LateralityCollection Method / VolumeCollection Time Received TimeUrineUrine specimen obtained by clean catch procedure / Unknown Non-blood Collection / Difyqga9005/03/2025 3:01 PM EDT107/03/2024 3:10 PM EDT Narrative Authorizing ProviderResult TypeResult StatusJazzmine SNEED URINE ORDERABLESFinal ResultPerforming OrganizationAddressCity/State/ZIP CodePhone Number [facility] ([facility]) [address] [place] [address] * (ABNORMAL) POCT glucose meter (05/03/2025 11:41 AM EDT)ComponentValueRef Range Test MethodAnalysis TimePerformed AtPathologist SignatureGlucose PXA335(H)70 - 105 mg/dL05/03/2025 12:01 PM [facility] ([facility])Comment:spegish3 Specimen (Source)Anatomical Location / LateralityCollection Method / Volume Collection TimeReceived TimeBloodCapillary blood specimen / Gpjlptd6705/03/2025 11:41 AM EDT107/03/2024 12:01 PM EDT Narrative [facility] ([facility]) - 05/03/2025 12:01 PM EDT Waived Testing in the ED is performed under the ED CLIA certificate #[id number]. Authorizing ProviderResult TypeResult StatusEh SNEED BLOOD ORDERABLESFinal ResultPerforming OrganizationAddressCity/State/ZIP CodePhone Number [facility]) [address] [place] [address] * (ABNORMAL) POCT glucose meter (05/03/2025 7:59 AM EDT)ComponentValueRef Range Test MethodAnalysis TimePerformed AtPathologist SignatureGlucose OIX689(H)70 - 105 mg/dL05/03/2025 8:12 AM [facility] ([facility])Comment:spegish3 Specimen (Source)Anatomical Location / LateralityCollection Method / Volume Collection TimeReceived TimeBloodCapillary blood specimen / Vehbqql0205/03/2025 7:59 AM EDT107/03/2024 8:12 AM EDT Narrative [facility] ([facility]) - 05/03/2025 8:12 AM EDT Waived Testing in the ED is performed under the ED CLIA certificate #[id number]. Authorizing ProviderResult TypeResult StatusEh Higuera [facility] BLOOD ORDERABLESFinal ResultPerforming OrganizationAddressCity/State/ZIP CodePhone Number [facility]) [address] [place] [address] * (ABNORMAL) PTH, intact (05/03/2025 7:15 AM EDT)ComponentValueRef RangeTest MethodAnalysis TimePerformed AtPathologist CtxxvfgshCYY043(H)12 - 88 pg/mL 05/03/2025 1:53 PM [facility] ([facility])Specimen (Source)Anatomical Location / LateralityCollection Method / VolumeCollection TimeReceived Time BloodVenous blood specimen / UnknownVenipuncture / Aiqmsbz5605/03/2025 7:15 AM EDT107/03/2024 7:40 AM EDT Narrative Authorizing ProviderResult TypeResult StatusJazzmine SNEED BLOOD ORDERABLESFinal ResultPerforming OrganizationAddressCity/State/ZIP CodePhone Number [facility] ([facility]) [address] [place] [address] * Phosphorus (05/03/2025 7:15 AM EDT)ComponentValueRef RangeTest MethodAnalysis TimePerformed AtPathologist SignaturePhosphorus4.22.5 - 5.0 mg/dL05/03/2025 1:33 PM [facility])Specimen (Source)Anatomical Location / LateralityCollection Method / VolumeCollection TimeReceived TimeBloodVenous blood specimen / UnknownVenipuncture / Vjuucdc3905/03/2025 7:15 AM EDT107/03/2024 7:40 AM EDT Narrative Authorizing ProviderResult TypeResult StatusMuhammad Royer SNEED BLOOD ORDERABLESFinal ResultPerforming OrganizationAddressCity/State/ZIP CodePhone Number [facility] ([facility]) [address] [place] [address] * (ABNORMAL) Basic metabolic panel (05/03/2025 7:15 AM EDT)ComponentValueRef RangeTest MethodAnalysis TimePerformed AtPathologist LdfgpkgxuOfyglx827249 - 145 mmol/L107/03/2024 8:05 AM [facility] ([facility])Potassium4.03.5 - 5.1 mmol/L107/03/2024 8:05 AM [facility] ([facility])Pvqqnqvy484(H)98 - 107 mmol/L107/03/2024 8:05 AM [facility] ([facility])CO220(L)21 - 31 mmol/L107/03/2024 8:05 AM [facility] ([facility])BUN61(H)7 - 25 mg/dL 05/03/2025 8:05 AM [facility] ([facility])Creatinine2.76(H)0.60 - 1.20 mg/dL05/03/2025 8:05 AM [facility] ([facility])Umlpvjr129(H)70 - 100 mg/dL05/03/2025 8:05 AM [facility] ([facility])Calcium8.68.6 - 10.3 mg/dL05/03/2025 8:05 AM [facility] ([facility])Anion Haq020 - 20 mmol/L 05/03/2025 8:05 AM [facility] ([facility])eGFR17.5(L)>60.0 mL/min/1.73m* 8:05 AM [facility] ([facility])Comment:[facility]???s estimated glomerular filtration rate (eGFR) will no [...] one group of individuals.BUN/Creatinine Ratio22. 8:05 AM [facility] ([facility])Specimen (Source)Anatomical Location / LateralityCollection Method / VolumeCollection TimeReceived TimeBloodVenous blood specimen / Unknown Venipuncture / Kedgkpp0905/03/2025 7:15 AM EDT107/03/2024 7:40 AM EDT Narrative Authorizing ProviderResult TypeResult StatusNicchelsea Higuera MDLAB BLOOD ORDERABLESFinal ResultPerforming OrganizationAddressCity/State/ZIP CodePhone Number [facility] ([facility]) [address] [place] [address] * (ABNORMAL) CBC (05/03/2025 7:15 AM EDT)ComponentValueRef RangeTest Method Analysis TimePerformed AtPathologist SignatureAuto WBC9.334.00 - 10.60 10*3/uL 05/03/2025 7:49 AM [facility] ([facility])RBC2.96(L)3.80 - 5.00 10*6/uL 05/03/2025 7:49 AM [facility] ([facility])Hemoglobin8.8(L)12.0 - 15.0 g/dL05/03/2025 7:49 AM [facility] ([facility])Pjiqqxrnng56.5(L)36.0 - 45.0 %05/03/2025 7:49 AM [facility] ([facility])MCV89.582.0 - 98.0 fL 05/03/2025 7:49 AM [facility] ([facility])MCH29.727.0 - 33.0 pg 05/03/2025 7:49 AM [facility] ([facility])MCHC33.232.0 - 35.0 g/dL 05/03/2025 7:49 AM [facility] ([facility])RDW15.5(H)11.5 - 15.0 % 05/03/2025 7:49 AM [facility] ([facility])Flbvkgxle012494 - 400 10*3/uL 05/03/2025 7:49 AM [facility] ([facility])Specimen (Source)Anatomical Location / LateralityCollection Method / VolumeCollection TimeReceived Time BloodVenous blood specimen / UnknownVenipuncture / Pzlguyi5705/03/2025 7:15 AM EDT107/03/2024 7:41 AM EDT Narrative Authorizing ProviderResult TypeResult StatusEh Higuera [facility] BLOOD ORDERABLESFinal ResultPerforming OrganizationAddressCity/State/ZIP CodePhone Number [facility] ([facility]) [address] [place] [address] * (ABNORMAL) POCT glucose meter (05/02/2025 8:10 PM EDT)ComponentValueRef Range Test MethodAnalysis TimePerformed AtPathologist SignatureGlucose QNH111(H)70 - 105 mg/dL05/02/2025 8:35 PM [facility] ([facility])Comment:dchilds2 Specimen (Source)Anatomical Location / LateralityCollection Method / Volume Collection TimeReceived TimeBloodCapillary blood specimen / Upndhsx8705/02/2025 8:10 PM EDT1 8:35 PM EDT Narrative [facility] ([facility]) - 05/02/2025 8:35 PM EDT Waived Testing in the ED is performed under the ED CLIA certificate #[id number]. Authorizing ProviderResult TypeResult StatusEh Higuera [facility] BLOOD ORDERABLESFinal ResultPerforming OrganizationAddressCity/State/ZIP CodePhone Number [facility] ([facility]) [address], [place] [id number] * (ABNORMAL) POCT glucose meter (05/02/2025 5:37 PM EDT)ComponentValueRef Range Test MethodAnalysis TimePerformed AtPathologist SignatureGlucose ZTD207(H)70 - 105 mg/dL05/02/2025 5:49 PM [facility] ([facility])Comment:asavill Specimen (Source)Anatomical Location / LateralityCollection Method / Volume Collection TimeReceived TimeBloodCapillary blood specimen / Xsimuac4605/02/2025 5:37 PM EDT1 5:49 PM EDT Narrative [facility] ([facility]) - 05/02/2025 5:49 PM EDT Waived Testing in the ED is performed under the ED CLIA certificate #[id number]. Authorizing ProviderResult TypeResult Meliton SNEED BLOOD ORDERABLESFinal ResultPerforming OrganizationAddressCity/State/ZIP CodePhone Number [facility] ([facility]) [address] [place] [address] * XR chest 1 view (05/02/2025 2:14 [...] EDT)ComponentValueRef Range Test MethodAnalysis TimePerformed AtPathologist SignatureGlucose IMC368(H)70 - 105 mg/dL05/02/2025 12:29 PM EDTCL[facility] ([facility])Comment:isegura2 Specimen (Source)Anatomical Location / LateralityCollection Method / Volume Collection TimeReceived TimeBloodCapillary blood specimen / Sygjmsz3005/02/2025 12:18 PM EDT1 12:29 PM EDT Narrative [facility] ([facility]) - 05/02/2025 12:29 PM EDT Waived Testing in the ED is performed under the ED CLIA certificate #[id number]. Authorizing ProviderResult TypeResult StatusEh Higuera MDLAB BLOOD ORDERABLESFinal ResultPerforming OrganizationAddressCity/State/ZIP CodePhone Number [facility] ([facility]) [address] [place] [address] * RIGHT HEART CATH (05/02/2025 11:44 AM [...] ??This was exchanged out for a 6 [place] 11 cm sheath. Right heart catheterization was [...] ejection fraction Authorizing ProviderResult TypeResult StatusGeorge Polina [facility] CARDIAC CATH PROCEDURESFinal Result * (ABNORMAL) %HbO2 (05/02/2025 11:42 AM EDT)ComponentValueRef RangeTest Method Analysis TimePerformed AtPathologist YispxfcpiN7Qq%64.1(L)90.0 - 95.0 % 05/02/2025 11:42 AM [facility]TCL[facility] ([facility])Specimen (Source)Anatomical Location / LateralityCollection Method / VolumeCollection TimeReceived Time BloodVenous blood specimen / Ofbmsra3305/02/2025 11:42 AM EDT1 11:42 AM EDT Narrative Authorizing ProviderResult TypeResult StatusEh SNEED POINT OF CARE TEST DOCKED DEVICE UNSOLICITED RESULTSFinal ResultPerforming Organization AddressCity/State/ZIP CodePhone Number [facility] ([facility]) [address] [place] [address] * ECG 12 lead (05/02/2025 9:14 AM EDT)ComponentValueRef RangeTest MethodAnalysis TimePerformed AtPathologist SignatureVentricular Fdfk60CZTLN MUSEAtrial Rate 74BPMGE MUSEPR Vadntlju445wbOL MUSEQRS TIUYHABK00wkHF MUSEQT Okmdsvhz349wkMA MUSEQTC CALCULATION(BAZETT)455msGE MUSEP Csxq94moyphbjVG MUSER-Rlcx28kkgbcevGA MUSET Wave Qkdn887xebsqsaOJ MUSESpecimen (Source)Anatomical Location / LateralityCollection Method / [...] Narrative 05/02/2025 12:21 PM EDT 1 1 [facility] [address] [place] [address] [phone] (fax) Echocardiogram-[facility] Name: CLAUDIA POLO Study Date: 05/02/2025 07:57 AM B/P: 164 mmHg/64 mmHg HR: 72 bpm Date of : 1950 Location: [facility] Height: 56 in. Age: 75 year(s) [...] No pericardial effusion. Procedure Staff Reading Group: [facility] Referring Physician: JOHN PERDOMO ??Arc Furnace Operator: HALLE Jacob Ordering Physician: EH HIGUERA ?? Procedure Note Arturo Baker MD - 05/02/2025 1 1 [facility] Heart Station [address] [place], [place] [phone] (fax) Echocardiogram-[facility] Name: CLAUDIA POLO Study Date: 05/02/2025 07:57 AM B/P: 164 mmHg/64 mmHg HR: 72 bpm Date of : 1950 Location: [facility] Height: 56 in. Age: 75 year(s) [...] No pericardial effusion. Procedure Staff Reading Group: [facility] Referring Physician: JOHN PERDOMO Arc Furnace Operator: HALLE Jacob Ordering Physician: EH HIGUERA Authorizing ProviderResult TypeResult StatusEh [facility] ECHO PROCEDURESFinal Result * (ABNORMAL) Reticulocyte panel (05/02/2025 5:46 AM EDT)ComponentValueRef Range Test MethodAnalysis TimePerformed AtPathologist SignatureRetic Ct Abs0.1054(H) 0.0250 - 0.1000 10*6/uL05/02/2025 6:17 PM [facility] ([facility])Retic Ct Pct3.50(H)0.50 - 1.80 %05/02/2025 6:17 PM [facility] ([facility]) Immature Reticulocyte Fraction %22.4(H)2 - 16 %05/02/2025 6:17 PM [facility] ([facility])Reticulocyte Gmlovgfmgi94.928.0 - 36.0 pg05/02/2025 6:17 PM [facility] ([facility])Specimen (Source)Anatomical Location / LateralityCollection Method / VolumeCollection TimeReceived TimeBloodVenous blood specimen / UnknownVenipuncture / Pwdbbih2505/02/2025 5:46 AM EDT1 6:09 AM EDT Narrative Authorizing ProviderResult TypeResult StatusEh SNEED BLOOD ORDERABLESFinal ResultPerforming OrganizationAddressCity/State/ZIP CodePhone Number [facility] ([facility]) [address] [place] [address] * (ABNORMAL) Iron and TIBC (05/02/2025 5:46 AM EDT)ComponentValueRef RangeTest MethodAnalysis TimePerformed AtPathologist BjwqrtkeaMkhi1614 - 212 ug/dL 05/02/2025 6:25 PM [facility] ([facility])AJQQ325(L)250 - 450 ug/dL 05/02/2025 6:25 PM [facility] ([facility])Iron Kmfsljunvk4884 - 50 % 05/02/2025 6:25 PM [facility] ([facility])PBBK583.0155.0 - 355.0 ug/dL 05/02/2025 6:25 PM [facility] ([facility])Specimen (Source)Anatomical Location / LateralityCollection Method / VolumeCollection TimeReceived Time BloodVenous blood specimen / UnknownVenipuncture / Klvcgtm5305/02/2025 5:46 AM EDT1 6:07 AM EDT Narrative Authorizing ProviderResult TypeResult StatusEh SNEED BLOOD ORDERABLESFinal ResultPerforming OrganizationAddressCity/State/ZIP CodePhone Number [facility] ([facility]) [address] [place], [place] [id number] * Ferritin (05/02/2025 5:46 AM EDT)ComponentValueRef RangeTest MethodAnalysis TimePerformed AtPathologist SvnywdjsmWfihvieo915.011.0 - 307.0 ng/mL05/02/2025 6:48 PM [facility] ([facility])Specimen (Source)Anatomical Location / LateralityCollection Method / VolumeCollection TimeReceived TimeBloodVenous blood specimen / UnknownVenipuncture / Vtrtisf7005/02/2025 5:46 AM EDT1 6:07 AM EDT Narrative Authorizing ProviderResult TypeResult StatusEh SNEED BLOOD ORDERABLESFinal ResultPerforming OrganizationAddressCity/State/ZIP CodePhone Number [facility] ([facility]) [address] [place] [address] * Vitamin B12 (05/02/2025 5:46 AM EDT)ComponentValueRef RangeTest MethodAnalysis TimePerformed AtPathologist SignatureVitamin B-[id number] - 914 pg/mL05/02/2025 6:48 PM [facility] ([facility])Comment: REFERENCE RANGES: 180-914 pg/mL ??Normal 145-179 pg/mL ??Indeterminate <145 pg/mL Deficient Specimen (Source)Anatomical Location / LateralityCollection Method / Volume Collection TimeReceived TimeBloodVenous blood specimen / UnknownVenipuncture / Kbybbfo5305/02/2025 5:46 AM EDT1 6:07 AM EDT Narrative Authorizing ProviderResult TypeResult Meliton SNEED BLOOD ORDERABLESFinal ResultPerforming OrganizationAddressCity/State/ZIP CodePhone Number [facility]) [address] [place] [address] * Folate (05/02/2025 5:46 AM EDT)ComponentValueRef RangeTest MethodAnalysis Time Performed AtPathologist FjnvugtmxVmloph26.266.6 - 1,000 ng/mL05/02/2025 6:48 PM [facility])Specimen (Source)Anatomical Location / LateralityCollection Method / VolumeCollection TimeReceived TimeBloodVenous blood specimen / UnknownVenipuncture / Qsfopne7105/02/2025 5:46 AM EDT1 6:07 AM EDT Narrative Authorizing ProviderResult TypeResult StatusEh SNEED BLOOD ORDERABLESFinal ResultPerforming OrganizationAddressCity/State/ZIP CodePhone Number [facility] ([facility]) [address] [place] [address] * TSH3 Reflex to FT4 (05/02/2025 5:46 AM EDT)ComponentValueRef RangeTest Method Analysis TimePerformed AtPathologist SignatureTSH4.540.34 - 5.60 mIU/L 05/02/2025 2:16 PM [facility] ([facility])Specimen (Source)Anatomical Location / LateralityCollection Method / VolumeCollection TimeReceived Time BloodVenous blood specimen / UnknownVenipuncture / Tlalqnk9105/02/2025 5:46 AM EDT1 6:07 AM EDT Narrative Authorizing ProviderResult TypeResult StatusEh SNEED BLOOD ORDERABLESFinal ResultPerforming OrganizationAddressCity/State/ZIP CodePhone Number [facility] ([facility]) [address] [place] [address] * (ABNORMAL) CBC (05/02/2025 5:46 AM EDT)ComponentValueRef RangeTest Method Analysis TimePerformed AtPathologist SignatureAuto WBC10.61(H)4.00 - 10.60 10*3/uL05/02/2025 6:52 AM [facility] ([facility])RBC3.04(L)3.80 - 5.00 10*6/uL05/02/2025 6:52 AM [facility] ([facility])Hemoglobin9.0(L)12.0 - 15.0 g/dL05/02/2025 6:52 AM [facility] ([facility])Ybzlimvvcb10.9(L)36.0 - 45.0 %05/02/2025 6:52 AM [facility] ([facility])MCV88.582.0 - 98.0 fL 05/02/2025 6:52 AM [facility] ([facility])MCH29.627.0 - 33.0 pg 05/02/2025 6:52 AM [facility] ([facility])MCHC33.532.0 - 35.0 g/dL 05/02/2025 6:52 AM [facility] ([facility])RDW15.3(H)11.5 - 15.0 % 05/02/2025 6:52 AM [facility] ([facility])Eloenjfhm992411 - 400 10*3/uL 05/02/2025 6:52 AM [facility] ([facility])Specimen (Source)Anatomical Location / LateralityCollection Method / VolumeCollection TimeReceived Time BloodVenous blood specimen / UnknownVenipuncture / Ewgjrfu3505/02/2025 5:46 AM EDT1 6:09 AM EDT Narrative Authorizing ProviderResult TypeResult StatusOsayovani Patel [facility] BLOOD ORDERABLESFinal ResultPerforming OrganizationAddressCity/State/ZIP CodePhone Number [facility] ([facility]) [address] [place] [address] * (ABNORMAL) Basic metabolic panel (05/02/2025 5:46 AM EDT)ComponentValueRef RangeTest MethodAnalysis TimePerformed AtPathologist VqitlrhxeHdknbz648635 - 145 mmol/L1 6:30 AM [facility] ([facility])Potassium3.93.5 - 5.1 mmol/L1 6:30 AM [facility] ([facility])Jpdqyuic384(H)98 - 107 mmol/L1 6:30 AM [facility] ([facility])IR37176 - 31 mmol/L 05/02/2025 6:30 AM [facility] ([facility])BUN60(H)7 - 25 mg/dL05/02/2025 6:30 AM [facility] ([facility])Creatinine2.77(H)0.60 - 1.20 mg/dL 05/02/2025 6:30 AM [facility] ([facility])Llscsfk792(H)70 - 100 mg/dL 05/02/2025 6:30 AM [facility] ([facility])Calcium8.68.6 - 10.3 mg/dL 05/02/2025 6:30 AM [facility] ([facility])Anion Yld823 - 20 mmol/L 05/02/2025 6:30 AM [facility] ([facility])eGFR17.4(L)>60.0 mL/min/1.73m* 6:30 AM [facility] ([facility])Comment:The [facility]???s estimated glomerular filtration rate (eGFR) will no [...] one group of individuals.BUN/Creatinine Ratio21. 6:30 AM [facility] ([facility])Specimen (Source)Anatomical Location / LateralityCollection Method / VolumeCollection TimeReceived TimeBloodVenous blood specimen / Unknown Venipuncture / Iqwncaq3105/02/2025 5:46 AM EDT1 6:07 AM EDT Narrative Authorizing ProviderResult TypeResult StatusKerline Patel [facility] BLOOD ORDERABLESFinal ResultPerforming OrganizationAddressCity/State/ZIP CodePhone Number [facility] ([facility]) [address] [place] [address] * Magnesium (05/02/2025 12:24 AM EDT)ComponentValueRef RangeTest MethodAnalysis TimePerformed AtPathologist SignatureMagnesium2.11.9 - 2.7 mg/dL05/02/2025 1:00 AM [facility] ([facility])Specimen (Source)Anatomical Location / LateralityCollection Method / VolumeCollection TimeReceived TimeBloodVenous blood specimen / UnknownVenipuncture / Sxlvwjk7005/02/2025 12:24 AM EDT 05/02/2025 12:37 AM EDT Narrative Authorizing ProviderResult TypeResult StatusKerline Patel [facility] BLOOD ORDERABLESFinal ResultPerforming OrganizationAddressCity/State/ZIP CodePhone Number [facility] ([facility]) [address] [place] [address] * (ABNORMAL) B-type natriuretic peptide (05/02/2025 12:24 AM EDT)ComponentValue Ref RangeTest MethodAnalysis TimePerformed AtPathologist SignatureBNP1,236(H)0 - 100 pg/mL05/02/2025 1:10 AM [facility] ([facility])Specimen (Source) Anatomical Location / LateralityCollection Method / VolumeCollection Time Received TimeBloodVenous blood specimen / UnknownVenipuncture / Unknown 05/02/2025 12:24 AM EDT1 12:33 AM EDT Narrative Authorizing ProviderResult TypeResult StatusOsaPalmd[facility] BLOOD ORDERABLESFinal ResultPerforming OrganizationAddressCity/State/ZIP CodePhone Number [facility]) [address] [place] [address] * (ABNORMAL) Basic metabolic panel (05/02/2025 12:24 AM EDT)ComponentValueRef RangeTest MethodAnalysis TimePerformed AtPathologist LdnzlgazwTxmrgj496307 - 145 mmol/L1 1:00 AM [facility] ([facility])Potassium3.93.5 - 5.1 mmol/L1 1:00 AM [facility] ([facility])Xxzsateb89834 - 107 mmol/L1 1:00 AM [facility] ([facility])[place] - 31 mmol/L 05/02/2025 1:00 AM [facility] ([facility])BUN58(H)7 - 25 mg/dL05/02/2025 1:00 AM [facility] ([facility])Creatinine2.85(H)0.60 - 1.20 mg/dL 05/02/2025 1:00 AM [facility] ([facility])Ruyslyo771(H)70 - 100 mg/dL 05/02/2025 1:00 AM [facility] ([facility])Calcium8.5(L)8.6 - 10.3 mg/dL 05/02/2025 1:00 AM [facility] ([facility])Anion Fto151 - 20 mmol/L 05/02/2025 1:00 AM [facility] ([facility])eGFR16.8(L)>60.0 mL/min/1.73m* 1:00 AM [facility] ([facility])Comment:[facility]???s estimated glomerular filtration rate (eGFR) will no [...] one group of individuals.BUN/Creatinine Ratio20. 1:00 AM [facility] ([facility])Specimen (Source)Anatomical Location / LateralityCollection Method / VolumeCollection TimeReceived TimeBloodVenous blood specimen / Unknown Venipuncture / Jprtxcv2605/02/2025 12:24 AM EDT1 12:37 AM EDT Narrative Authorizing ProviderResult TypeResult StatusOsayovani Patel [facility] BLOOD ORDERABLESFinal ResultPerforming OrganizationAddressCity/State/ZIP CodePhone Number [facility] ([facility]) [address] [place] [address] * (ABNORMAL) CBC (05/02/2025 12:24 AM EDT)ComponentValueRef RangeTest Method Analysis TimePerformed AtPathologist SignatureAuto WBC10.314.00 - 10.60 10*3/uL05/02/2025 12:42 AM [facility] ([facility])RBC2.93(L)3.80 - 5.00 10*6/uL05/02/2025 12:42 AM [facility] ([facility])Hemoglobin8.5(L)12.0 - 15.0 g/dL05/02/2025 12:42 AM [facility] ([facility])Rjxxiximbr60.1(L) 36.0 - 45.0 %05/02/2025 12:42 AM [facility] ([facility])MCV89.182.0 - 98.0 fL05/02/2025 12:42 AM [facility] ([facility])MCH29.027.0 - 33.0 pg 05/02/2025 12:42 AM [facility])MCHC32.632.0 - 35.0 g/dL 05/02/2025 12:42 AM [facility] ([facility])RDW15.3(H)11.5 - 15.0 % 05/02/2025 12:42 AM [facility])Zzmyegrex791060 - 400 10*3/uL 05/02/2025 12:42 AM [facility])Specimen (Source)Anatomical Location / LateralityCollection Method / VolumeCollection TimeReceived Time BloodVenous blood specimen / UnknownVenipuncture / Jyvcobi2305/02/2025 12:24 AM EDT1 12:33 AM EDT Narrative Authorizing ProviderResult TypeResult StatusOsaPalmd[facility] BLOOD ORDERABLESFinal ResultPerforming OrganizationAddressCity/State/ZIP CodePhone Number [facility] ([facility]) [address] [place] [address] documented in this encounter Visit Diagnoses Diagnosis Acute on chronic heart failure with preserved ejection fraction (HFpEF) (CMS/HCC)- Primary Acute on chronic heart failure with preserved ejection fraction (HFpEF) (CMS/HCC) Coronary arteriosclerosis Coronary atherosclerosis of unspecified type of vessel, chipewwa or graft Essential (primary) hypertension Unspecified essential [...] 2115, For 99 days Given05/01/2025 10:01 PM UFD748 mg allopurinol (Zyloprim) tablet 100 mg 100 mg, oral, Nightly, First dose (after last reorder) on Mon05/02/25 at 2200, For 99 days Given05/03/2025 9:32 PM SAE968 ooCxwxf6905/02/2025 10:15 PM VTH435 mg amLODIPine (Norvasc) tablet 10 mg 10 mg, oral, Daily, First dose on Mon05/01/25 at 2115, For 99 days Given05/04/2025 10:00 AM EST10 hnNatmg0405/03/2025 9:30 AM EDT10 tdPacjy3705/02/2025 1:38 PM EDT10 mg aspirin EC tablet 81 mg 81 mg, oral, Every morning, First dose on Mon05/02/25 at 1000, For 99 days, Do not crush, chew, orsplit. Given05/04/2025 10:00 AM EST81 vqRiela0805/03/2025 9:30 AM EDT81 ptVtrmy1305/02/2025 1:08 PM EDT81 mg atorvastatin (Lipitor) tablet 40 mg 40 mg, oral, Nightly, First dose on Mon05/01/25 at 2200, For 99 days Given05/03/2025 9:31 PM EDT40 niLdzvx2005/02/2025 10:15 PM EDT40 lbNlaer3605/01/2025 10:01 PM EDT40 mg bumetanide (Bumex) injection 2 mg 2 mg, intravenous, Administer over 1 Minutes, 2 times daily, First dose on Mon05/01/25 at 2200 Given05/01/2025 10:00 PM EDT2 mg bumetanide (Bumex) injection 3 mg 3 mg, intravenous, Administer over 1 Minutes, 2 times daily, First dose (after last modification) on Mon05/02/25 at 1000 Given05/04/2025 10:00 AM EST3 aiXzczx1905/03/2025 9:31 PM EDT3 kgFglbq8205/03/2025 9:30 AM EDT3 mg dextrose 50 % [...] deep vein thrombosis prevention Indications:deep vein thrombosis aqjpuwdfpdEgfhz23/02/2025 10:00 AM EST5,000 UnitsLeft Lower HnidgixInuwl13/01/2025 9:31 PM EDT5,000 UnitsRight Lower Abdomen Given05/03/2025 9:30 AM EDT5,000 UnitsLeft Lower Abdomen hydrALAZINE (Apresoline) tablet 50 mg 50 mg, oral, 2 times daily, First dose on Mon05/01/25 at 2200, For 99 days Given05/04/2025 10:00 AM EST50 cvCpefz9805/03/2025 9:31 PM EDT50 blIpzxo9905/03/2025 9:30 AM EDT50 mg insulin lispro (HumaLOG) [...] Physician Given05/04/2025 12:22 PM EST1 UnitsLeft Upper LlrerkaRtrzm40/01/2025 5:51 PM EDT 1 UnitsLeft Lower BxkzbmaHwzuo63/01/2025 12:43 PM EDT1 UnitsLeft Lower Abdomen isosorbide mononitrate ER (Imdur) 24 hr tablet 30 mg 30 mg, oral, Once Daily, First dose on Mon05/02/25 at 0900, For 99 days, Do not crush, chew, or split. Given05/04/2025 9:59 AM EST30 ycBrbim3805/03/2025 9:30 AM EDT30 ozPkaoa7105/02/2025 1:38 PM EDT30 mg levothyroxine (Synthroid, Levoxyl) tablet 75 mcg 75 mcg, oral, Daily, First dose on Mon05/01/25 at 2115, For 99 days Given05/04/2025 6:11 AM EST75 vluEicpc19/01/2025 6:33 AM EDT75 mcgGiven 05/02/2025 5:25 AM [...] For 197 doses Given05/04/2025 9:00 AM EST75 cmFoidh1905/03/2025 8:19 PM EDT75 zpZhejk6105/03/2025 9:30 AM EDT75 mg potassium chloride CR (Klor-Con M20) ER tablet 40 mEq 40 mEq, oral, Daily, First dose on Mon05/01/25 at 2115, For 99 days, Best given with food and plenty of water to minimize gastric irritation. Do not crush or chew. Given05/04/2025 9:59 AM EST40 lPmRwrki47/01/2025 9:30 AM EDT40 mEqGiven 05/02/2025 1:39 PM EDT40 mEq sodium bicarbonate tablet 650 mg 650 mg, oral, 2 times daily, First dose on Mon05/03/25 at 1300, For 99 days Given05/04/2025 10:00 AM XHA113 fhEbxos7205/03/2025 9:32 PM RXX653 mgGiven 05/03/2025 1:43 PM QRZ725 mgdocumented in this encounter Active and Recently [...] DateEnd John Perdomo DO [address] [place] [address] PCP - Nyvqdyl62/8/22documented as of this encounter
--- OUTSIDE RECORDS SUMMARY | 2025-05-02 08:30 | XMS_ITS | Encounter Summary ---
Author Organization [facility] Address [address] [place] [address] Care Team Providers Care Learning And Development Consultant Name Role Phone PerdomoJohn Primary Care Provider [phone] Reason for Visit * Auth/Cert (Routine)SpecialtyDiagnoses / ProceduresReferred By ContactReferred To Contact Diagnoses Acute on chronic heart failure with preserved ejection fraction (HFpEF) (CMS/[facility]) CHF Exacerbation/CKD Procedures NO CODED SERVICES Crispin Galeano MD [address] [place] [address] Phone: tel: fax: [facility] [address] [place] [address] Phone: tel: fax: Referral IDStatusReasonStart DateExpiration DateVisits RequestedVisits [id number] Encounter Details DateTypeDepartmentCare Team (Latest Contact Info)Iovjsswwsna65/31/2025 9:30 AM EDT - 05/02/2025 10:30 AM EDTSurgery [facility] Vascular Lab [address] [place] [address] Rickey Jackson MD [address] [facility] [address] [facility] [place] [address] Right heart cath [15556 (CPT??) +1 more] Social History Tobacco UseTypesPacks/DayYears UsedDateSmoking Tobacco: NeverSmokeless Tobacco: NeverAlcohol UseStandard Drinks/WeekCommentsNot Currently0 (1 standard drink = 0.6 oz pure alcohol)[facility] UtilitiesAnswerDate RecordedIn the past 12 months has the electric, gas, oil, or water company threatened to shut off services in your [...] were you homeless or living in a penitentiary (including now)? No05/01/2025Hunger Vital SignAnswerDate RecordedWithin the past 12 months, you worried that your food would run out before you got the money to buymore.Never true05/01/2025Ran Out of Food in the Last YearNot on file05/01/2025 CommentsUnknownSex and Gender InformationValueDate RecordedSex Assigned at Jqcnmx9305/19/2022 6:11 PM ESTLegal WkkVfzyvh05/30/2022 12:22 AM EDTGender HilexgavUmzayx36/17/2022 6:11 PM ESTSexual OrientationHeterosexual or Straight 05/19/2022 6:11 PM ESTdocumented as of this encounter Last Filed Vital Signs Vital SignReadingTime TakenCommentsBlood Fcbxetkj932/7805/02/2025 9:16 AM EDT Vdgze284505/02/2025 9:16 AM SDRWfffwfyblnq50.3 ??C (97.3 ??F)05/02/2025 9:16 AM EDTRespiratory Wlbe119405/02/2025 9:16 AM EDTOxygen Vqklxyknch84%05/02/2025 9:16 AM EDTInhaled Oxygen Concentration--Bqarpt45.7 kg (138 lb 3.7 oz)05/02/2025 5:00 AM YWKGefxhd021.2 cm (4' 8 )05/01/2025 6:01 PM EDTBody Mass Index28.4705/01/2025 6:01 PM EDTdocumented in this encounter Functional Status * QuestionAnswerDate of RfhveaajjtKiivjvVT687/7805/02/2025 9:16 AM Jhoana Sims RNPulse7505/02/2025 9:16 AM Jhoana Sims RNHeart Rate SourceMonitor 05/02/2025 9:16 AM Jhoana Sims RNPatient VbowfgquPuspt64/31/2025 9:16 AM Jhoana Sims RN * Pina Fall RiskQuestionAnswerDate of AssessmentAuthorHistory of Falling, Immediate or Within 3 Nismgh579 9:16 AM Jhoana Sims RNSecondary Pernfymdf6633/31/2025 9:16 AM Jhoana Sims RNAmbulatory Jfg350 9:16 AM Jhoana Sims RNIntravenous Therapy/Heparin Gwpu0411 9:16 AM Jhoana Sims RNGait/Rruprgyltedn951/31/2025 9:16 AM Jhoana Sims RNMental Acpfzy867/31/2025 9:16 AM Jhoana Sims RNMorse Fall Risk Score35 05/02/2025 9:16 AM Jhoana Sims RN * Phill ScaleQuestionAnswerDate of AssessmentAuthorBraden No Risk Interventions Continue to assess patient according to level of care05/02/2025 9:16 AM Jhoana Del Castillo, RNSensory Dargxizjnha291/31/2025 9:16 AM Jhoana Sims RN Ekagkdyu608/31/2025 9:16 AM Jhoana Sims, LRAeiyvswc683/31/2025 9:16 AM Jhoana Sims RNMobility41 9:16 AM Jhoana Sims RNNutrition3 05/02/2025 9:16 AM Jhoana Sims, RNFriction and Hoyos798 9:16 AM Jhoana Sims RNBraden Scale Njmou1965/31/2025 9:16 AM Jhoana Sims RN * [place] Fall Risk InterventionsQuestionAnswerDate of AssessmentAuthor [place] Fall Risk KqwodzdpjzikjVhxmogdt42/31/2025 9:16 AM Jhoana Sims RN * Pain Assessment TimerQuestionAnswerDate of AssessmentAuthorRestart Pain Assessment DpbybDyh72/31/2025 9:16 AM Jhoana Sims RN * Sepsis Model ScoresQuestionAnswerDate of AssessmentAuthorEarly Detection of Sepsis Score1.7505/02/2025 10:15 AM Marion OrtizEarly Detection of Sepsis Score3.110 10:15 AM Marion Ortiz * Pain AssessmentQuestionAnswerDate of AssessmentAuthorPain Interventions Repositioned;Rest05/02/2025 9:16 AM Jhoana Sims RNPatient's Stated Pain GoalNo pain05/02/2025 9:16 AM Jhoana Sims RNPain AssessmentNo/denies pain05/02/2025 9:16 AM Jhoana Sims RN * Deterioration Index ScoreQuestionAnswerDate of AssessmentAuthorDeterioration Index Score29.7805/02/2025 10:15 AM EDTChronicjessica, Batchq * Head, Ears, Eyes, Nose, and Throat (HEENT)QuestionAnswerDate of Assessment AuthorHead, Ears, Eyes, Nose, and Throat (WDL)X1 9:16 AM Jhoana Sims RNR EyeMildlfélix impaired vision;Corrective gsolzw6805/02/2025 9:16 AM Jhoana Del Castillo RNL EyeMildlfélix impaired vision;Corrective lhejqc9405/02/2025 9:16 AM Jhoana Sims RNMucous Membrane(s)Moist;Tonasket;Junxpu4505/01/2025 8:23 PM Benja Mar RNTeethIntact05/01/2025 6:01 PM Jhoana Sims RNLips Dry05/02/2025 9:16 AM Jhoana Sims RN * Short Portable Mental StatusQuestionAnswerDate of AssessmentAuthorWhat are the date, month, year? 9:16 AM Jhoana Sims RNWhat is the day of the week? 9:16 AM Jhoana Sims RNWhat is the name of this place? 9:16 AM Jhoana Sims RNWhat is your phone number?0 05/02/2025 9:16 AM Jhoana Sims RNHow old are you? 9:16 AM Jhoana Del Castillo RNWhen were you born? 9:16 AM Jhoana Sims RN Who is the current president? 9:16 AM EDTSaville, Jhoana, RNWho was the president before him? 9:16 AM Jhoana Sims RNWhat was your mother's maiden name? 9:16 AM Jhoana Sims RNCan you count backward from 20 by 3s? 9:16 AM Jhoana Sims RNShort Portable Mental Rivvf054 9:16 AM Jhoana Sims RN * Fall Risk LevelQuestionAnswerDate of AssessmentAuthorMobility zoneLow (Green Zone)05/02/2025 9:16 AM Jhoana Sims RNMorse fall risk zoneLow (Green Zone)05/02/2025 9:16 AM Jhoana Sims RNMental status questionaire zoneLow (Green Zone)05/02/2025 9:16 AM Jhoana Sims RN * QuestionAnswerDate of AssessmentAuthorPulse rate from Plethysmogram (bpm)77 05/02/2025 9:16 AM Jhoana Sims RN * Skin Assessment Sign offQuestionAnswerDate of AssessmentAuthorDual Sign-off - Admission/TransferASwati Abad RN05/01/2025 6:01 PM Jhoana Sims RNAny new wounds identified on admission/transfer?No05/01/2025 6:01 PM Jhoana Sims RNProvider notified of new mlcvaIg6505/01/2025 6:01 PM Jhoana Sims RN * Vital SignsQuestionAnswerDate of BujvujljxsTjmxavKP861/7805/02/2025 9:16 AM Jhoana Sims RNTemp97.310 9:16 AM Jhoana Sims RNTemp src Okaonyot34/31/2025 9:16 AM Jhoana Sims WCGccny5757/31/2025 9:16 AM Jhoana Del Castillo RNResp2705/02/2025 9:16 AM Jhoana Sims RNSpO2961 9:16 AM Jhoana Sims RNHeart Rate IdkxuzOyuyxnn99/31/2025 9:16 AM Jhoana Del Castillo RNBP LocationRight arm05/02/2025 9:16 AM Jhoana Sims RNBP ZalptfYplpriuiy72/31/2025 9:16 AM Jhoana Sims RNMAP (mmHg)9305/02/2025 9:16 AM Jhoana Sims, RNPatient MtuijeevReeys42/31/2025 9:16 AM EDJhoana Woody RN * QuestionAnswerDate of AssessmentAuthorSwallowAble to swallow solids and liquids without zrpvwuftmj40/31/2025 9:16 AM Jhoana Sims RN * QuestionAnswerDate of AssessmentAuthorBilateral Breath SoundsClear;Diminished 05/02/2025 9:16 AM Jhoana Sims RNRespiratory GddtjysXcdpze10/31/2025 9:16 AM Jhoana Sims RNChest AssessmentChest expansion symmetrical 05/02/2025 9:16 AM Jhoana Sims RNRespiratory AtdeyaJfleiospw15/31/2025 9:16 AM Jhoana Sims RNRespiratory Depth/OfmmnzMsjflan77/31/2025 9:16 AM Jhoana Sims RNDyspnea OccurrenceWith hwsvpeth87/31/2025 9:16 AM Jhoana Del Castillo RN * QuestionAnswerDate of AssessmentAuthorCardiac DxrzxvKKS44/31/2025 9:16 AM Jhoana Del Castillo RNEctopy BeblyzrlzOkjtinilnr13/30/2025 6:01 PM Jhoana Sims RNCardiac IerphohakaZlzbznv48/31/2025 9:16 AM Jhoana Sims RN Service Liaison Representative LcknffSd60/31/2025 9:16 AM Jhoana Sims RNTelemetry Box Otyoswoc111536/31/2025 9:16 AM Jhoana Sims RNJugular Venous Distention (JVD)Yes05/02/2025 9:16 AM Jhoana Sims RNCardiac FhxxpehyDezu29/31/2025 9:16 AM Jhoana Sims RNHeart SoundsS1, S205/02/2025 9:16 AM Jhoana Sims RN * GastrointestinalQuestionAnswerDate of AssessmentAuthorGastrointestinal (WDL) WDL1 9:16 AM Jhoana Sims RN * Peripheral VascularQuestionAnswerDate of AssessmentAuthorPeripheral Vascular (WDL)X1 9:16 AM Jhoana Sims RNGeneralized Edema+ 9:16 AM Jhoana Sims RNCapillary RefillLess than/equal to 2 seconds (All extremities)05/02/2025 9:16 AM Jhoana Sims RNPulsesRight radial;Left radial;Right posterior tibial;Left posterior tibial;Right pedal;Left pedal 05/02/2025 9:16 AM Jhoana Sims RNCyanosisNone1 9:16 AM Jhoana Del Castillo RNEdemaGeneralized05/02/2025 9:16 AM Jhoana Sims RN Peripheral Vascular Additional AssessmentsRight upper extremity;Left lower extremity;Left upper extremity;Right lower ijonpkjav15/31/2025 9:16 AM Jhoana Del Castillo RN * RUE Neurovascular AssessmentQuestionAnswerDate of AssessmentAuthorRUE Edema+1 05/02/2025 9:16 AM Jhoana Sims RNRUE Capillary RefillLess than/equal to 2 utffbmv7405/02/2025 9:16 AM Jhoana Sims RNRUE ColorAppropriate for rhdbbysgb26/31/2025 9:16 AM Jhoana Sims RNRUE Temperature/Moisture Warm;Dry05/02/2025 9:16 AM Jhoana Sims RNRight Radial Pulse+ 9:16 AM EDTSaville, Jhoana, RN * LUE Neurovascular AssessmentQuestionAnswerDate of AssessmentAuthorLUE Edema+1 05/02/2025 9:16 AM EDJhoana Robertson, RNLUE Capillary RefillLess than/equal to 2 oqzcnat5605/02/2025 9:16 AM EDJhoana Robertson, RNLUE ColorAppropriate for /31/2025 9:16 AM EDJhoana Robertson RNLUE Temperature/Moisture Warm;Dry05/02/2025 9:16 AM EDJhoana Robertson, RNLeft Radial Pulse+ 9:16 AM Jhoana Sims, RN * RLE Neurovascular AssessmentQuestionAnswerDate of AssessmentAuthorRLE Edema+1 05/02/2025 9:16 AM EDJhoana Robertson, RNRLE Capillary RefillLess than/equal to 2 omqljwj8105/02/2025 9:16 AM EDTSJhoana ramirez, RNRLE ColorAppropriate for iexchbxwa01/31/2025 9:16 AM EDJhoana Robertson, RNRLE Temperature/Moisture Warm;Dry05/02/2025 9:16 AM Jhoana Sims, RNRight Posterior Tibial Pulse+1 05/02/2025 9:16 AM Jhoana Sims, RNRight Pedal Pulse+ 9:16 AM Jhoana Sims RN * LLE Neurovascular AssessmentQuestionAnswerDate of AssessmentAuthorLLE Edema+1 05/02/2025 9:16 AM EDJhoana Robertson RNLLE Capillary RefillLess than/equal to 2 yzqmpbb0605/02/2025 9:16 AM EDJhoana Robertson, RNLLE ColorAppropriate for /31/2025 9:16 AM EDJhoana Robertson, RNLLE Temperature/Moisture Warm;Dry05/02/2025 9:16 AM EDTSaviJhoana hill, RNLeft Posterior Tibial Pulse+1 05/02/2025 9:16 AM EDTSJhoana ramirez, RNLeft Pedal Pulse+ 9:16 AM Jhoana Sims RN * MusculoskeletalQuestionAnswerDate of AssessmentAuthorMusculoskeletal (WDL)WDL 05/02/2025 9:16 AM Jhoana Sims RN * PsychosocialQuestionAnswerDate of AssessmentAuthorPsychosocial (WDL)WDL 05/02/2025 9:16 AM Jhoana Sims RN * Pina Fall RiskQuestionAnswerDate of AssessmentAuthorHistory of Falling, Immediate or Within 3 Yrtoug010 9:16 AM Jhoana Sims RNSecondary Mwtrwphdk0830/31/2025 9:16 AM Jhoana Sims RNAmbulatory Yzb578 9:16 AM Jhoana Sims RNIntravenous Therapy/Heparin Imcd3428 9:16 AM Jhoana Sims RNGait/Pyeklcofmmnx825/31/2025 9:16 AM Jhoana Sims RNMental Tnyuxx861/31/2025 9:16 AM Jhoana Sims RNMorse Fall Risk Score35 05/02/2025 9:16 AM Jhoana Sims RN * Phill ScaleQuestionAnswerDate of AssessmentAuthorBraden No Risk Interventions Continue to assess patient according to level of care05/02/2025 9:16 AM Jhoana Del Castillo RNSensory Rlmwfwymcji581/31/2025 9:16 AM Jhoana Sims RN Itdqsnuz539/31/2025 9:16 AM Jhoana Sims, BFOauooimj110/31/2025 9:16 AM Jhoana Sims RNMobility41 9:16 AM Jhoana Sims RNNutrition3 05/02/2025 9:16 AM Jhoana Sims, RNFriction and Psmml261 9:16 AM Jhoana Sims RNBraden Scale Jsyda9274/31/2025 9:16 AM Jhoana Sims RN * Charting TypeQuestionAnswerDate of AssessmentAuthorCharting TypeShift qwtmrqpcla74/31/2025 9:16 AM Jhoana Sims RN * Cultural Requests During HospitalizationAnswerDate of AssessmentAuthordeclined 05/02/2025 9:00 AM Jhoana Sims RN * Spiritual Requests During HospitalizationAnswerDate of AssessmentAuthor yhlkctyh73/31/2025 9:00 AM Jhoana Sims RN * GenitourinaryQuestionAnswerDate of AssessmentAuthorGenitourinary (WDL)WDL 05/02/2025 9:16 AM Jhoana Sims RNUrinary YnpbbvyimyuaZw63/31/2025 9:16 AM Jhoana Sims RN * Patient MonitoringQuestionAnswerDate of AssessmentAuthorFrequency of Checks Twice per hour, exwnzzzm06/31/2025 9:16 AM Jhoana Sims RN * Safe EnvironmentQuestionAnswerDate of AssessmentAuthorChair AlarmsOff 05/02/2025 9:16 AM Jhoana Sims RNArm Bands OnID05/02/2025 9:16 AM Jhoana Del Castillo RNSide Rails/Bed Safety2/ 9:16 AM Jhoana Sims RNBed BghrepVvv61/31/2025 9:16 AM Jhoana Sims RNThe Patient's Environment is OgwlCep08/31/2025 9:16 AM Jhoana Sims RN * MobilityQuestionAnswerDate of LytgzsqwksHwchhjLlsibkupiq12/31/2025 9:16 AM Jhoana Del Castillo RNActivity PerformedAmbulated in room05/02/2025 9:16 AM Jhoana Del Castillo RNRepositionedTurns self05/02/2025 9:16 AM Jhoana Sims RN Level of IvvkspvjtpPvmkhpsrvkl28/31/2025 9:16 AM Jhoana Sims RNHead of Bed ElevatedSelf zmxbkjoxw15/31/2025 9:16 AM Jhoana Sims RNHeels/Feet Foot of bed elevated;Heels elevated off bed05/02/2025 9:16 AM Jhoana Sims RNRange of MotionActive;All osetyvgeazm87/31/2025 9:16 AM Jhoana Sims, CODYnti-Embolism DevicesBilateral;Sequential compression devices, below knee05/02/2025 9:16 AM Jhoana Sims, CODYnti-Embolism InterventionOff 05/02/2025 9:16 AM Jhoana Sims RNPatient's mobility zoneZone 9:16 AM Jhoana Sims RNPositioning FrequencyAble to turn self05/02/2025 9:16 AM Jhoana Sims RN * HygieneQuestionAnswerDate of AssessmentAuthorSkin CarePer self05/02/2025 9:16 AM Jhoana Sims RNHygieneBathed;Per self05/01/2025 11:00 PM Diya Moore NALevel of IlmnbxpluhGgdbvoeugss89/31/2025 9:16 AM Jhoana Sims RNIs Patient Total Care?No05/02/2025 9:16 AM Jhoana Sims RNIncontinence Protective DevicesAbsorbent pad05/02/2025 9:16 AM Jhoana Sims RN * PrecautionsQuestionAnswerDate of RpsbumadnyLfnkkjDhlhlbukkdvKzrx59/31/2025 9:16 AM Jhoana Sims RN * Family/Significant Other CommunicationQuestionAnswerDate of AssessmentAuthor Family/Significant Other PuscuaUcbyfwrg51/31/2025 9:16 AM Jhoana Sims RN * Comfort and Environment InterventionsQuestionAnswerDate of AssessmentAuthor RfltotwFzasasnehrxq22/31/2025 9:16 AM Jhoana Sims RN * Safety Equipment at BedsideQuestionAnswerDate of AssessmentAuthorSafety Equipment at CsmqiuuKhmm86/31/2025 9:16 AM Jhoana Sims RN * ADL ScreeningQuestionAnswerDate of AssessmentAuthorDo you snore or wake up gasping for air?No05/01/2025 6:50 PM Ana Davies RNCan you bring in your CPAP/BiPAP from home?N/A1 6:50 PM Ana Davies RNPatient's Vision Adequate to Safely Complete Daily YnleklcxusQxc03/30/2025 6:50 PM Ana Davies RNPatient's Judgment Adequate to Safely Complete Daily ActivitiesYes 05/01/2025 6:50 PM Ana Davies RNPatient's Memory Adequate to Safely Complete Daily KjydnxxjewXzs18/30/2025 6:50 PM Ana Davies RNPatient Able to Express Needs/PmsxijvOpq17/30/2025 6:50 PM Ana Davies, RNDressing Kycamqwyamv59/30/2025 6:50 PM Ana Davies MYFxbrggqqLjsygdmsfgf42/30/2025 6:50 PM Ana Davies, VKMhvzytaTyhxjwsljhd83/30/2025 6:50 PM Ana Davies, VXWobvihwKksueweogbk23/30/2025 6:50 PM Ana Davies, RNToiletingIndependent 05/01/2025 6:50 PM Ana Davies, RNIn/Out VzhZhqewuuwipd67/30/2025 6:50 PM Ana Davies, RNWalks in KyuhMyzzwncqhyd40/30/2025 6:50 PM Ana Davies RNWeakness of JswdUwke12/30/2025 6:50 PM Ana aDvies RNWeakness of Arms/HyhpoEpfs61/30/2025 6:50 PM Ana Davies RNHearing - Right Ear Vzxzkasmyq40/30/2025 6:50 PM Ana Davies RNHearing - Left EarFunctional 05/01/2025 6:50 PM Ana Davies, RNWhich is your dominant hand?Right 05/01/2025 6:50 PM Ana Davies RN * ConsultsQuestionAnswerDate of AssessmentAuthorSpiritual Care Consult NeededNo 05/01/2025 6:51 PM Ana Davies RNSocial Services Consult NeededNo 05/01/2025 6:51 PM Ana Davies RN * Therapy ConsultsQuestionAnswerDate of AssessmentAuthorPT Evaluation Needed1 05/01/2025 6:50 PM Ana Davies RNOT Evaluation Bnmmyg876 6:50 PM Ana Davies RNSLP Evaluation Eovmdx412/30/2025 6:50 PM Ana Davies RN * Assistive DevicesQuestionAnswerDate of AssessmentAuthorAssistive Devices Ratalclada64/30/2025 6:50 PM Ana Davies RN * [place] Fall Risk InterventionsQuestionAnswerDate of AssessmentAuthor [place] Fall Risk SyyrteurdjlfyOhdobgus89/31/2025 9:16 AM Jhoana Sims RN * Suicidal IdeationQuestionAnswerDate of AssessmentAuthor1. Wish to be (Lifetime)No05/01/2025 6:51 PM Ana Davies RN2. Non-Specific Active Suicidal Thoughts (Lifetime)No05/01/2025 6:51 PM Ana Davies RN * Pain AssessmentQuestionAnswerDate of AssessmentAuthorPain Interventions Repositioned;Rest05/02/2025 9:16 AM Jhoana Sims RNPatient's Stated Pain GoalNo pain05/02/2025 9:16 AM Jhoana Sims RNPain AssessmentNo/denies pain05/02/2025 9:16 AM Jhoana Sims RN * NutritionQuestionAnswerDate of AssessmentAuthorDiet PgbaBBB26/31/2025 9:16 AM Jhoana Sims RNFeedingAble to feed self05/02/2025 9:16 AM Jhoana Sims RN * Respiratory InterventionsQuestionAnswerDate of AssessmentAuthorRespiratory Interventions PerformedCough and deep /31/2025 9:16 AM Jhoana Sims RN * Cough and Deep BreatheQuestionAnswerDate of AssessmentAuthorCough and Deep XkctodzGzz65/31/2025 9:16 AM Jhoana Sims RN * IntegumentaryQuestionAnswerDate of AssessmentAuthorIntegumentary (WDL)WDL 05/02/2025 9:16 AM Jhoana Sims RN * QuestionAnswerDate of AssessmentAuthorPatient Goal for Treatmentdischarge 05/02/2025 9:00 AM Jhoana Sims RN * Patient Strengths/Problem AreasQuestionAnswerDate of AssessmentAuthorStrengths (Must Choose Two)Communication Skills;Supportive Aabqdg4605/01/2025 6:51 PM Ana Chang RNProblem AreasHealth Problems;Physical Rnxdry1905/01/2025 6:51 PM Ana Davies RN * Environment of Care ChecklistQuestionAnswerDate of AssessmentAuthorWere suicide precautions explained to the patient?No05/02/2025 9:16 AM Jhoana Sims RNPotebrianneially harmful objects out of patient reach?Yes05/02/2025 9:16 [...] deficits and behaviors that affect risk of falls;[place] fall precautions as indicated by assessment;Educate patient/family on patient safety, including physical limitations;Consider OT/PT consult to assist with strengthening/mobility;Instruct patient to call for assistance with activity based on assessment;Modify environment to reduce risk of injury;Assess patient frequently for physical needs05/02/2025 9:16 AM Jhoana Sims RN * Modified Malnutrition Screening [...] Damon RN * Weight Loss ScoreAnswerDate of AulxhqmtlxPbqomx395/30/2025 7:45 PM Li Damon RN * Malnutrition ScoreAnswerDate of WypycdjwzcBdybss615/30/2025 7:45 PM Li Damon RN documented as of this encounter Discharge Summaries * Gela Ness MD - 05/04/2025 4:00 PM EST Images from the original note were not included. Internal Medicine Discharge Summary Final Discharge Diagnosis: Acute on chronic HFrEF Admission Diagnosis: Acute on chronic heart failure with preserved ejection fraction (HFpEF) ([facility]) [I50.33] Hospital course: 75-year-old female with history [...] Time Provider Department Center 05/20/2025 10:00 AM [facility] Your medication list PAUSE taking these [...] MOUTH EVERYDAY AT BEDTIME ergocalciferol 1.25 MG (28042 Units) capsule Commonly known as: Vitamin D-2 [...] Your Medications These medications were sent to [facility]/pharmacy #[id number] [place] [address] bumetanide 1 mg tablet levothyroxine 50 mcg [...] least in part, completed using a voice grants officer system. Every effort was made to ensure accuracy. However, inadvertent computerized grants officer errors may be present [facility] Medicine 05/04/2025 6:58 PM CC: DO [...] taller/more pillows than normal or in recliner. [phone] documented in this encounter Medications at Time [...] 90 tablet ergocalciferol (Vitamin D-2) 1.25 MG (77106 UT) capsule Take 1 capsule by mouth [...] 24 hr tablet Indications:Coronary artery disease involving [place] coronary artery of [place] heart without angina pectorisTake 1 tablet (30 mg) by mouth once daily as directed. Do not crush or chew. 90 tablet levothyroxine (Synthroid, Levoxyl) 50 mcg tablet Indications:GoiterTake 1.5 tablets (75 mcg) by mouth in the morning. 45 tablet 512/08/2024 metOLazone (Zaroxolyn) 2.5 mg tablet Indications:Essential (primary) [...] (as needed for orthostatic hypotension). 90 tablet nitroglycerin (Nitrostat) 0.4 mg SL tablet Indications:Coronary artery disease of [place] artery of [place] heart with stable angina pectorisPlace 1 tablet [...] times daily for 197 doses. 60 tablet /03/2026documented as of this encounter Progress Notes * [...] and essential hypertension who was admitted to [facility] as a transfer from [facility] on 05/01/2025 after she initially presented [...] Dose Status allopurinol (Zyloprim) 100 mg tablet [id number] TAKE 1 TABLET BY MOUTH ONCE DAILY FOR 90 DAYS Historical MD Marcelo Active amLODIPine (Norvasc) 10 mg tablet [id number] TAKE 1 TABLET BY MOUTH EVERY DAY Bran Fish MD Active aspirin 81 mg EC tablet [id number] Take 1 tablet every day by oral route. Drea Robertson MD Active atorvastatin (Lipitor) 40 mg tablet [id number] TAKE 1 TABLET BY MOUTH EVERYDAY AT BEDTIME Bran Fish MD Active bumetanide (Bumex) 2 mg tablet [id number] Take 2 tablets (4 mg) by mouth two times daily. Patient taking differently: Take 2 mg by mouth in the morning. Bran Fish MD Active doxazosin (Cardura) 4 mg tablet [id number] TAKE 1 AND 1/2 TABLETS BY MOUTH TWICE A DAY Patient not taking: Reported on 05/01/2025 Bran Fish MD Active ergocalciferol (Vitamin D-2) 1.25 MG (32607 UT) capsule [id number] Take 1 capsule by mouth 1 (one) time per week. Historical MD Marcelo Active ferrous sulfate 325 (65 Fe) MG tablet [id number] TAKE 1 TABLET BY MOUTH EVERY OTHER DAY FOR 90 DAYS Historical ProviderMD Active folic acid (Folvite) 1 mg tablet [id number] Take 1 mg by mouth in the morning. Historical ProviderMD Active hydrALAZINE (Apresoline) 50 mg tablet [id number] TAKE 1 TABLET BY MOUTH TWO TIMES DAILY. Patient taking differently: Take 50 mg by mouth four times daily. Emilia To CNP Active insulin glargine (Lantus) 100 unit/mL (3 mL) pen [id number] Inject under the skin. Patient taking differently: Inject under the skin if needed. Historical ProviderMD Active isosorbide mononitrate ER (Imdur) 30 mg 24 hr tablet [id number] Take 1 tablet (30 mg) by mouth once daily as directed. Do not crush or chew. Bran Fish MD Active levothyroxine (Synthroid, Levoxyl) 50 mcg tablet [id number] Take 1 tablet by mouth in the morning. Patient taking differently: Take 75 mcg by mouth in the morning. Historical ProviderMD Active metOLazone (Zaroxolyn) 2.5 mg tablet [id number] TAKE 1 TABLET BY MOUTH IF NEEDED FOR SWELLING OR WEIGHT GAIN Patient not taking: Reported on 05/01/2025 Bran Fish MD Active metoprolol tartrate (Lopressor) 50 mg tablet [id number] Take 1.5 tablets (75 mg) by mouth in the morning and at bedtime. Patient taking differently: Take 50 mg by mouth in the morning and at bedtime. Emilia To CNP Active midodrine (Proamatine) 5 mg tablet [id number] Take 1 tablet (5 mg) by mouth if needed (as needed for orthostatic hypotension). Patient not taking: Reported on 05/01/2025 Bran Fish MD Active nitroglycerin (Nitrostat) 0.4 mg SL tablet [id number] Place 1 tablet (0.4 mg) under the tongue every 5 (five) minutes if needed for chest pain. Bran Fish MD Active potassium chloride CR (Klor-Con M20) 20 mEq ER tablet [id number] Take 40 mEq by mouth in the morning. Historical ProviderMD Active Labs: I have reviewed the patient's [...] now evident in Lateral Confirmed by Chela FERRO, LUIS Salvador ([id number]) on 05/02/2025 4:37:20 PM [...] Agent, Strain, 3D, Bubble Study 1 [facility] Heart Station [address] [facility]. [place] [id number] [phone] (fax) Echocardiogram-[facility] Name: CLAUDIA POLO Study Date: 05/02/2025 07:57 AM B/P: 164 mmHg/64 mmHg HR: 72 bpm Date of : 1950 Location: [facility] Height: 56 in. Age: 75 year(s) Patient [...] No pericardial effusion. Procedure Staff Reading Group: [facility] Referring Physician: JOHN PERDOMO Gold Leaf Roller: HALLE Jacob Ordering Physician: EH HIGUERA Cardiac [...] This was exchanged out for a 6 Thai 11 cm sheath. Right heart catheterization was [...] CKD stage 4. Ur protein/Cr ratio: 2.65. [id number] heart failure exacerbation. Triple-vessel CAD demonstrated on [...] you. Johnny Hines MD PGY-3, Internal Medicine [facility] Cosigned by Jazzmine Kelsey MD at [...] Faculty, Division of Nephrology, Department of Medicine, [facility]. * Robson White MD - 05/04/2025 [...] Denies chest pain or dyspnea. Discomfort at [facility] site with bruising on right neck. Feels a lot better. Awaiting nephro input. Subjective: Claudia Polo is a 75 y.o. female with a past medical history notable for hypertension, HFpEF, CAD s/p CABG 2020, hyperlipidemia, CKD 4, and diabetes who presents from [facility] cardiology clinic due to worsening [...] 05/04/25 0400 156/51 36.6 ??C (97.9 ??F) Temporal 71 16 99 % -- 05/04/25 0000 (!) 139/47 36.7 ??C (98.1 ??F) Temporal 70 18 96 % -- 05/03/252130 144/57 -- -- -- -- -- -- 05/03/252018 150/57 36.7 ??C (98.1 ??F) Temporal 73 20 98 % -- 05/03/252014 150/57 -- -- 73 21 97 % -- 05/03/25 1610 (!) 140/48 36.6 ??C (97.8 ??F) Temporal 72 19 95 % -- 05/03/25 1210 144/75 36.3 ??C (97.3 ??F) Temporal 77 18 93 % -- 05/03/25 0815 [...] Value Ventricular Rate 74 Atrial Rate 74 ID Interval 168 QRS DURATION 68 QT Interval 410 QTC CALCULATION(BAZETT) 455 P Surprise 64 R-Surprise 15 T Wave Surprise 103 Impression Normal sinus rhythm Abnormal QRS-T angle, consider primary T wave abnormality Abnormal ECG When compared with ECG of 14-JUL-2020 06:44, ST no longer elevated in Lateral Nonspecific T wave abnormality now evident in Lateral Confirmed by Chela FERRO, LUIS Salvador (57) on 05/02/2025 4:37:20 PM No results found for: CKTOTAL , CKMB , CKMBINDEX , TROPONINI Complete Echo (TTE) w/wo Imaging Agent, Strain, 3D, Bubble Study Result Date: 05/02/2025 1 1 [facility] Heart Station [address] [place] [address] [phone] (fax) Echocardiogram-[facility] Name: CLAUDIA POLO Study Date: 05/02/2025 07:57 AM B/P: 164 mmHg/64 mmHg HR: 72 bpm Date of : 1950 Location: [facility] Height: 56 in. Age: 75 year(s) Patient Room: [facility] Weight: 138 lb. Gender: Female Patient Status:InPt [...] No pericardial effusion. Procedure Staff Reading Group: [facility] Referring Physician: JOHN PERDOMO Gold Leaf Roller: Jessica Bain [facility] Ordering Physician: EH HIGUERA No nuclear medicine results found for the past 12 months Relevant Imaging Results ECG 12 lead Normal sinus rhythm Abnormal QRS-T angle, consider primary T wave abnormality Abnormal ECG When compared with ECG of 14-JUL-2020 06:44, ST no longer elevated in Lateral Nonspecific T wave abnormality now evident in Lateral Confirmed by Chela FERRO, LUIS Salvador (57) on 05/02/2025 4:37:20 PM [...] Agent, Strain, 3D, Bubble Study 1 1 [facility] Heart Station [address] [id number] [phone] (fax) Echocardiogram-[facility] Name: CLAUDIA POLO Study Date: 05/02/2025 07:57 AM B/P: 164 mmHg/64 mmHg HR: 72 bpm Date of : 1950 Location: [facility] Height: 56 in. Age: 75 year(s) Patient [...] No pericardial effusion. Procedure Staff Reading Group: [facility] Referring Physician: JOHN PERDOMO Gold Leaf Roller: HALLE Jacob Ordering Physician: EH HIGUERA Cardiac [...] This was exchanged out for a 6 Thai 11 cm sheath. Right heart catheterization was [...] hypertension Anemia of chronic disease T2DM PLAN [facility] 05/02 showing severely elevated right-sided pressures Continue [...] hold given eGFR < 20 Continuous cardiac wage and salary specialist & Replace electrolytes per protocol, ensure K>4 [...] AM, Kerline Patel CNP, 81 mg at 05/03/2530 atorvastatin (Lipitor) tablet 40 mg, 40 mg, [...] TID with meals, 1 Units at 05/03/25 1751 AND insulin lispro (HumaLOG) injection 0-4 Units, 0-4 Units, subcutaneous, Nightly,Kerline Patel CNP, 1 Units at 05/02/25 221 isosorbide mononitrate ER (Imdur) 24 hr tablet 30 mg, 30 mg, oral, Once Daily, Kerline Patel CNP, 30 mg at 05/03/2530 levothyroxine (Synthroid, Levoxyl) tablet 75 mcg, 75 mcg, oral, Daily, Kerline Patel CNP, 75 mcg at 05/04/2511 metOLazone (Zaroxolyn) tablet 2.5 mg, 2.5 mg, oral, Once, William Jaime MD metoprolol tartrate (Lopressor) tablet 75 mg, 75 mg, oral, BID, William Jaime MD, 75 mg at 05/03/25 2019 midodrine (Proamatine) tablet 5 mg, 5 mg, oral, PRN, Kerline Patel CNP potassium chloride CR (Klor-Con M20) ER tablet 40 mEq, 40 mEq, oral, Daily, Kerline Patel CNP, 40 mEq at 05/03/2530 sennosides-docusate sodium (Andree-Colace) 8.6-50 mg per tablet 1 tablet, 1 tablet, oral, BID PRN, Kerline Patel CNP sodium bicarbonate tablet 650 mg, 650 mg, oral, BID, Johnny Hines MD, 650 mg at 05/03/252131 Cosigned by Luis Ferro MD at 05/04/2025 7:17 PM EST Associated attestation - Luis Ferro MD - 05/04/2025 7:17 PM EST By [...] not included. Med-7 Daily Progress Note - 05/03/2025 11:32 AM; Room: [address] [place] [address] Admission: 05/01/2025 5:55 PM; Length of stay: 2 days Code Status: Full Code Discharge Destination: TBD Discharge planning: TBD Overview Patient is seen for evaluation and management of heart failure exacerbation. Claudia Polo is an 75 y.o. female who came from [facility] with prior history of hypertension and [...] fever. She was advised to come to [facility] for CHF exacerbation. Subjective The patient was [...] heart failure with preserved ejection fraction (HFpEF) ([facility]) Active Problems: Hypertensive disorder Stage 4 chronic kidney disease ([facility]) Type 2 diabetes mellitus ([facility]) Assessment and Plan Acute on chronic heart [...] 4.54 05/02/2025 Lab Results Component Value Date [id number] 424 05/02/2025 IRON 53 05/02/2025 TIBC 235 (L) 05/02/2025 Imaging ECG 12 lead Normal sinus rhythm Abnormal QRS-T angle, consider primary T wave abnormality Abnormal ECG When compared with ECG of 14-JUL-2020 06:44, ST no longer elevated in Lateral Nonspecific T wave abnormality now evident in Lateral Confirmed by Cheal FERRO, LUIS Salvador (57) on 05/02/2025 4:37:20 PM [...] Agent, Strain, 3D, Bubble Study 1 1 [facility] Heart Station [address] [place] [address] [phone] (fax) Echocardiogram-[facility] Name: CLAUDIA POLO Study Date: 05/02/2025 07:57 AM B/P: 164 mmHg/64 mmHg HR: 72 bpm Date of : 1950 Location: [facility] Height: 56 in. Age: 75 year(s) Patient [...] No pericardial effusion. Procedure Staff Reading Group: [facility] Referring Physician: JOHN PERDOMO Gold Leaf Roller: Jessica Bain [facility] Ordering Physician: EH HIGUERA Cardiac catheterization [...] This was exchanged out for a 6 Thai 11 cm sheath. Right heart catheterization was [...] Rivera MD Internal Medicine Resident, PGY1 [facility] Medicine 05/03/2025 11:32 AM Cosigned by Eh Higuera [...] Denies chest pain or dyspnea. Discomfort at [facility] site with bruising on right neck. Feels a lot better. Awaiting nephro input. Subjective: Claudia Polo is a 75 y.o. female with a past medical history notable for hypertension, HFpEF, CAD s/p CABG 2020, hyperlipidemia, CKD 4, and diabetes who presents from [facility] cardiology clinic due to worsening [...] Value Ventricular Rate 74 Atrial Rate 74 ID Interval 168 QRS DURATION 68 QT Interval 410 QTC CALCULATION(BAZETT) 455 P Surprise 64 R-Surprise 15 T Wave Surprise 103 Impression Normal sinus rhythm Abnormal QRS-T angle, consider primary T wave abnormality Abnormal ECG When compared with ECG of 14-JUL-2020 06:44, ST no longer elevated in Lateral Nonspecific T wave abnormality now evident in Lateral Confirmed by Chela FERRO, LUIS Salvador (57) on 05/02/2025 4:37:20 PM No results found for: CKTOTAL , CKMB , CKMBINDEX , TROPONINI Complete Echo (TTE) w/wo Imaging Agent, Strain, 3D, Bubble Study Result Date: 05/02/2025 1 1 [facility] Heart Station [address] [place] [address] [phone] (fax) Echocardiogram-[facility] Name: CLAUDIA POLO Study Date: 05/02/2025 07:57 AM B/P: 164 mmHg/64 mmHg HR: 72 bpm Date of : 1950 Location: [facility] Height: 56 in. Age: 75 year(s) Patient [...] No pericardial effusion. Procedure Staff Reading Group: [facility] Referring Physician: JOHN PERDOMO Gold Leaf Roller: Jessica Bain [facility] Ordering Physician: EH HIGUERA No nuclear medicine results found for the past 12 months Relevant Imaging Results ECG 12 lead Normal sinus rhythm Abnormal QRS-T angle, consider primary T wave abnormality Abnormal ECG When compared with ECG of 14-JUL-2020 06:44, ST no longer elevated in Lateral Nonspecific T wave abnormality now evident in Lateral Confirmed by Chela FERRO, LUIS Salvador (57) on 05/02/2025 4:37:20 PM [...] Agent, Strain, 3D, Bubble Study 1 1 [facility] Heart Station [address] [place] [address] [phone] (fax) Echocardiogram-[facility] Name: CLAUDIA POOL Study Date: 05/02/2025 07:57 AM B/P: 164 mmHg/64 mmHg HR: 72 bpm Date of : 1950 Location: [facility] Height: 56 in. Age: 75 year(s) Patient Room: 318 Weight: 138 lb. Gender: Female Patient Status: [...] No pericardial effusion. Procedure Staff Reading Group: [facility] Referring Physician: JOHN PERDOMO Gold Leaf Roller: Jessica Bain [facility] Ordering Physician: EH HIGUERA Cardiac catheterization [...] This was exchanged out for a 6 Thai 11 cm sheath. Right heart catheterization was [...] hold given eGFR < 20 Continuous cardiac wage and salary specialist & Replace electrolytes per protocol, ensure K>4 & Mg>2 Remainder of care as per primary team and other consulting services Okay for discharge from cardiac standpoint, will need to follow-up with cardiology in the outpatient setting This note was, at least in part, completed using a voice grants officer system. Every effort was made to ensure accuracy. However, inadvertent computerized grants officer errors may be present. Seven Tapia MD PGY-2 Internal Medicine Cardiology Consult Service [facility] [1] Current Facility-Administered Medications: acetaminophen (Tylenol) [...] subcutaneous, TID with meals, 1 Units at 05/02/251741 AND insulin lispro (HumaLOG) injection 0-4 Units, [...] William Jaime MD, 75 mg at 05/03/25 0930 midodrine (Proamatine) tablet 5 mg, 5 mg, oral, PRN, Kerline Patel CNP potassium chloride CR (Klor-Con M20) ER tablet 40 mEq, 40 mEq, oral, Daily, Kerline Patel CNP, 40 mEq at 05/03/25 0930 sennosides-docusate sodium (Andree-Colace) 8.6-50 mg per tablet 1 tablet, 1 tablet, oral, BID PRN, Kerline Patel CNP Cosigned by Luis Ferro MD at 05/03/2025 2:33 PM EDT Associated attestation - Luis Ferro MD - 05/03/2025 2:33 PM EDT By [...] from the original note were not included. [facility]-7 Daily Progress Note - 05/02/2025 2:35 PM; Room: [address] [place] [address] Admission: 05/01/2025 5:55 PM; Length of stay: 1 days Code Status: Full Code Discharge Destination: TBD Discharge planning: TBD Overview Patient is seen for evaluation and management of heart failure exacerbation. Claudia Polo is an 75 y.o. female who came from [facility] with prior history of hypertension and [...] fever. She was advised to come to [facility] for CHF exacerbation. Subjective Patient was seen and examined at bedside. Afebrile, hemodynamically stable, starting well on 2 L per nasal cannula. Patient reports she does not use oxygen at home but believes it will help her with her daily functioning. Patient reports she was recently discharged from [facility] due to a CHF exacerbation. She states [...] heart failure with preserved ejection fraction (HFpEF) ([facility]) Active Problems: Hypertensive disorder Stage 4 chronic kidney disease ([facility]) Type 2 diabetes mellitus ([facility]) Assessment and Plan Acute on chronic heart [...] TSH 4.54 05/02/2025 No results found for: [id number] , IRON , TIBC , C3 , [...] Agent, Strain, 3D, Bubble Study 1 1 [facility] Heart Station [address] [place] [address] [phone] (fax) Echocardiogram-[facility] Name: CLAUDIA POLO Study Date: 05/02/2025 07:57 AM B/P: 164 mmHg/64 mmHg HR: 72 bpm Date of : 1950 Location: [facility] Height: 56 in. Age: 75 year(s) Patient [...] No pericardial effusion. Procedure Staff Reading Group: [facility] Referring Physician: JOHN PERDOMO Gold Leaf Roller: HALLE Jacob Ordering Physician: EH HIGUERA Cardiac [...] This was exchanged out for a 6 Thai 11 cm sheath. Right heart catheterization was [...] Grey Johns MD Internal Medicine Resident, PGY1 [facility] Medicine 05/02/2025 2:35 PM Cosigned by [...] documented in this encounter H&P Notes * Bonaventure Alessandro, MD - 05/03/2025 4:10 AM EDT Case [...] AM EDT Rickey Jackson MD, MPH, FACC, [facility], [facility] Interventional Cardiology Pager Email: [email or web address] Source Note - Bran Fish MD - 04/07/2025 3:00 PM EDT Images from the original note were not included. [facility] Subjective Claudia Polo is a 74 y.o. [...] Rfl: 3 ergocalciferol (Vitamin D-2) 1.25 MG (53885 UT) capsule, Take 1 capsule by mouth [...] two times daily. Coronary artery disease involving venetie coronary artery of venetie heart without angina pectoris Essential (primary) hypertension [...] AM THE HOSPITALIST TEAM PREFERS TO USE REVENTIVE CHAT FOR NON-URGENT COMMUNICATION 7AM- 7PM. IF I DO NOT RESPOND WITHIN 20 MINUTES OR URGENT MATTERS, PLEASE CALL THROUGH THE GIFTED PROGRAM TEACHER. FROM 7PM-7AM, PLEASE PAGE [phone](COVR). Chief Complaint SOB History of Present Illness Claudia Polo is an 75 y.o. female who came from [facility] with prior history of hypertension and [...] fever. She was advised to come to [facility] for CHF exacerbation. Review of System and [...] heart failure with preserved ejection fraction [place]pEF) [place] Start Bumex 2mg IV BID Weigh patient daily Fluid restriction Cardiology consult NPO at midnight for possible right heart cath Hypertensive disorder Resume home medications Stage 4 chronic kidney disease ([facility]) Monitor kidney functions Avoid nephrotoxic drugs Appreciate nephrology recommendations Type 2 diabetes mellitus ([facility] Glucose management protocol Sliding scale Hypoglycemia management [...] this hospital stay by a member of [facility] Medicine. Past Medical History Medical [...] MAGNESIUM Imaging XR chest lateral decubitus Narrative: [facility] Department of Radiology [address] [place] [id number] Patien t Name: CLAUDIA POLO : 1950 Sex: F Age: Race: White^White Pt. Location: Patient Status: O Ordered Date: 07/27/2020 11:25:00 AM Completed Date: 07/27/2020 11:33 AM Requesting Provider: FREEDOM RING Attending Provider: FREEDOM RING Report Copy To: Signs & Symptoms: R05 Cough I10 History: Thomas Comments: Exam: CHEST AND LATERAL CHEST AND [...] suggested Electronically signed: Marli Seo. Transcribed by: [email or web address], User Resident: Electronically Signed by: MARLI SEO @ 07/27/2020 01:07 PM Signed [facility] 05/02/2025 12:34 AM [1] Past Medical History: [...] tablet 3 ergocalciferol (Vitamin D-2) 1.25 MG (19737 UT) capsule Take 1 capsule by mouth [...] and essential hypertension who was admitted to [facility] as a transfer from [facility] on 05/01/2025 after she initially presented [...] Dose Status allopurinol (Zyloprim) 100 mg tablet [id number] TAKE 1 TABLET BY MOUTH ONCE DAILY FOR 90 DAYS Historical Provider, Active amLODIPine (Norvasc) 10 mg tablet [id number] TAKE 1 TABLET BY MOUTH EVERY DAY Bran Fish MD Active aspirin 81 mg EC tablet [id number] Take 1 tablet every day by oral route. Historical Provider, Active atorvastatin (Lipitor) 40 mg tablet [id number] TAKE 1 TABLET BY MOUTH EVERYDAY AT BEDTIME Bran Fish MD Active bumetanide (Bumex) 2 mg tablet [id number] Take 2 tablets (4 mg) by mouth two times daily. Patient taking differently: Take 2 mg by mouth in the morning. Bran Fish MD Active doxazosin (Cardura) 4 mg tablet [id number] TAKE 1 AND 1/2 TABLETS BY MOUTH TWICE A DAY Patient not taking: Reported on 05/01/2025 Bran Fish MD Active ergocalciferol (Vitamin D-2) 1.25 MG (56571 UT) capsule [id number] Take 1 capsule by mouth 1 (one) time per week. Historical ProviderMD Active ferrous sulfate 325 (65 Fe) MG tablet [id number] TAKE 1 TABLET BY MOUTH EVERY OTHER DAY FOR 90 DAYS Historical ProviderMD Active folic acid (Folvite) 1 mg tablet [id number] Take 1 mg by mouth in the morning. Historical ProviderMD Active hydrALAZINE (Apresoline) 50 mg tablet [id number] TAKE 1 TABLET BY MOUTH TWO TIMES DAILY. Patient taking differently: Take 50 mg by mouth four times daily. Emilia To CNP Active insulin glargine (Lantus) 100 unit/mL (3 mL) pen [id number] Inject under the skin. Patient taking differently: Inject under the skin if needed. Historical Provider, Active isosorbide mononitrate ER (Imdur) 30 mg 24 hr tablet [id number] Take 1 tablet (30 mg) by mouth once daily as directed. Do not crush or chew. Bran Fish MD Active levothyroxine (Synthroid, Levoxyl) 50 mcg tablet [id number] Take 1 tablet by mouth in the morning. Patient taking differently: Take 75 mcg by mouth in the morning. Historical ProviderMD Active metOLazone (Zaroxolyn) 2.5 mg tablet [id number] TAKE 1 TABLET BY MOUTH IF NEEDED FOR SWELLING OR WEIGHT GAIN Patient not taking: Reported on 05/01/2025 Bran Fish MD Active metoprolol tartrate (Lopressor) 50 mg tablet [id number] Take 1.5 tablets (75 mg) by mouth in the morning and at bedtime. Patient taking differently: Take 50 mg by mouth in the morning and at bedtime. Emilia To CNP Active midodrine (Proamatine) 5 mg tablet [id number] Take 1 tablet (5 mg) by mouth if needed (as needed for orthostatic hypotension). Patient not taking: Reported on 05/01/2025 Bran Fish MD Active nitroglycerin (Nitrostat) 0.4 mg SL tablet [id number] Place 1 tablet (0.4 mg) under the tongue every 5 (five) minutes if needed for chest pain. Bran Fish MD Active potassium chloride CR (Klor-Con M20) 20 mEq ER tablet [id number] Take 40 mEq by mouth in the [...] in the setting of CKD stage 4. [id number] heart failure exacerbation. Triple-vessel CAD demonstrated on [...] you. Johnny Hines MD PGY-3, Internal Medicine [facility] [1] Allergies Allergen Reactions Erythromycin Other Erythromycin Base Hydromorphone Penicillins Hives Spironolactone Rash [2] Past Medical History: Diagnosis Date CHF (congestive heart failure) ([facility]) Chronic kidney disease Coronary artery disease Diabetes [...] Faculty, Division of Nephrology, Department of Medicine, [facility]. * Sima Bai, RD - 05/02/2025 2:34 PM EDTAssociated Order(s): IP CONSULT TO NUTRITION SERVICES Adult Nutrition Assessment: Name: Claudia Polo Date: 1950 Date of Visit: 05/02/25 Admission Dx: Acute on chronic heart failure with preserved ejection fraction (HFpEF) (CMS/HCC) [I50.33] Reason for assessment: high risk (po [...] 158 (H) 05/02/2025 1218 BUN 60 (H) 05/02/2025 0546 CREATININE 2.77 (H) 05/02/2025 0546 NA 138 05/02/2025 0546 K 3.9 05/02/2025 0546 PHOS 4.4 07/18/2020 0404 MG 2.1 05/02/2025 0024 HGB 9.0 (L) 05/02/2025 0546 HGB 7.5 (L) 07/13/2020 1142 WBC 10.61 (H) 05/02/2025 0546 A1c 6.2% 2020 BNP 1236 Allergies: Allergies[2] Nutrition Problems: Swallowing Assessment: Swallow screen 05/01 Mouth: pt denies chewing difficulty Abdominal Assessment: Last BM 05/02 per pt I/O: Urine output: 325 mL / 24 hrs Net fluid: -635 mL Appetite: Decreased past few months Cognition: A/O x4 Feeding Skills: Independently feeds self Good access to food TWIST MAKER Skin Integrity: Intact Edema: BLE +1 Other [...] 05/02/25 1218 Special Kitchen Request Once Comments: Thai toast, chocolate milk and grapes 05/02/25 1237 [...] ideal body weight (40.9 kg) Calorie needs: 4323-5907 kcals/day based on 25-30 kcal/kg Protein needs: [...] To reach the Clinical Dietitian, please utilize REVENTIVE chat Monday-Monday from 8AM-4PM or call extension [phone]. For weekends (Monday-Monday) and holidays, the Clinical Dietitian can be reached via pager ([phone]) from 9AM-3PM. The Clinical Nutrition Department is unable to respond to REVENTIVE chat messages on Sundays and s. [1] [...] CKD 4, and diabetes who presents from [facility] cardiology clinic due to worsening [...] medical history of CHF (congestive heart failure) ([facility]), Chronic kidney disease,Coronary artery disease, Diabetes mellitus ([facility]), and Hypertension. Surgical History She has a [...] times daily ergocalciferol (Vitamin D-2) 1.25 MG (18125 UT) capsule 1 capsule, Weekly ferrous sulfate [...] 72 23 97 % -- -- 05/01/25 202 155/53 -- -- 73 20 98 % [...] Imaging Results XR chest lateral decubitus Narrative: [facility] Department of Radiology [address] [place] [phone] Patien t Name: CLAUDIA POLO : 1950 Sex: F Age: Race: White^White Pt. Location: Patient Status: O Ordered Date: 07/27/2020 11:25:00 AM Completed Date: 07/27/2020 11:33 AM Requesting Provider: FREEDOM RING Attending Provider: FREEDOM RING Report Copy To: Signs & Symptoms: R05 Cough I10 History: Thomas Comments: Exam: CHEST AND LATERAL CHEST AND [...] suggested Electronically signed: Marli Seo. Transcribed by: [email or web address], User Resident: Electronically Signed by: MARLI SEO [...] least in part, completed using a voice grants officer system. Every effort was made to ensure accuracy. However, inadvertent computerized grants officer errors may be present. Seven Tapia MD PGY-2 Internal Medicine Cardiology Consult Service [facility] [1] Medications Prior to Admission Medication Sig [...] tablet 3 ergocalciferol (Vitamin D-2) 1.25 MG (00275 UT) capsule Take 1 capsule by mouth [...] baseline comfort level Outcome: Progressing Flowsheets (Taken 05/02/2025 0916) Verbalizes/displays adequate comfort level or baseline comfort [...] from fall injury Outcome: Progressing Flowsheets (Taken 05/02/2025 09) Free from fall injury: Identify cognitive and physical deficits and behaviors that affect risk of falls [place] fall precautions as indicated by assessment Educate [...] Date/Time: 05/02/25929 Procedure: Right heart cath Location: [facility] ENDOSCOPY NURSE [address] / [facility] (Cath) Providers: Rickey Jackson [...] 11:12 AM EDT Rickey Jackson MD, MPH, [facility], [facility], [facility] Interventional Cardiology Pager Email: [email or web address] * Care Plan - Benja Degroot RN [...] Plan of Treatment DateTypeDepartmentCare Team (Latest Contact Info)Eesqpbsjifp75/18/2025 10:00 AM ESTFollow-[facility] [place] [address] [place] [address] Emilia To CNP [address] [place] [address] NameTypePriorityAssociated DiagnosesOrder ScheduleCBCLabRoutine Chronic diastolic heart failure (CMS/HCC) Expected: 05/11/2025 (Approximate), Expires: 05/04/2026asic metabolic panelLab Routine Chronic diastolic heart failure (CMS/HCC) Expected: 05/04/2025 (Approximate), Expires: 05/04/2026NameTypePriority Associated DiagnosesOrder ScheduleAmbulatory referral to Cardiac RehabOutpatient ReferralRoutine Acute on chronic heart failure with preserved ejection fraction (HFpEF) ([facility]) Expected: 05/02/2025 (Approximate), Expires: 10/30/2025mbulatory referral to Cardiac RehabOutpatient ReferralRoutine Coronary arteriosclerosis Expected: 05/02/2025 (Approximate), Expires: 10/30/2025mbulatory referral to Primary CareOutpatient ReferralRoutine Chronic diastolic heart failure ([facility]) Expected: 05/11/2025 (Approximate), Expires: 10/31/2025mbulatory referral to NephrologyOutpatient ReferralRoutine Chronic diastolic heart failure ([facility]) Expected: 05/11/2025 (Approximate), Expires: 10/31/2025mbulatory referral to CardiologyOutpatient ReferralRoutine Chronic diastolic heart failure ([facility]) Expected: 05/11/2025 (Approximate), Expires: 10/31/2025documented as of this encounter Procedures Procedure NamePriorityDate/TimeAssociated DiagnosisCommentsPOCT GLUCOSE METER UNSOLICITED LMCGMVLDlesaav47/02/2025 11:23 AM EST CBCPending Onhyqevtc79/02/2025 8:02 AM EST BASIC METABOLIC PANELPending Ofvsathzk66/02/2025 8:02 AM EST POCT GLUCOSE METER UNSOLICITED TDAZRWFHdaqsly18/01/2025 8:12 PM EDT POCT GLUCOSE METER UNSOLICITED PNWQLHVNvcxtsf37/01/2025 4:41 PM EDT PROTEIN, URINE, RANDOMPending Ixipxgyvm24/01/2025 3:01 PM EDT CREATININE, URINE, RANDOMPending Bzvcnldnr89/01/2025 3:01 PM EDT URINALYSIS MICROSCOPICPending Vkgdihqqf03/01/2025 3:01 PM EDT URINALYSISPending Eyltjcqql61/01/2025 3:01 PM EDT HOME O2 EVAL (DESATURATION SCREEN)Hjjuuam2705/03/2025 12:19 PM EDTPOCT GLUCOSE METER UNSOLICITED FPUFWVYEpyvvzv35/01/2025 11:41 AM EDT POCT GLUCOSE METER UNSOLICITED QNNOJWJNnhcydj78/01/2025 7:59 AM EDT CBCPending Ookxijnfk45/01/2025 7:15 AM EDT PHOSPHORUSAdd-On05/03/2025 7:15 AM EDT PTH, INTACTAdd-On05/03/2025 7:15 AM EDT BASIC METABOLIC PANELPending Sdkbyshsn74/01/2025 7:15 AM EDT POCT GLUCOSE METER UNSOLICITED PHKXBTLNoqnbcs03/31/2025 8:10 PM EDT POCT GLUCOSE METER UNSOLICITED XMGJEITEukmdzz42/31/2025 5:37 PM EDT XR CHEST 1 TQXTDoliwir47/31/2025 2:14 PM EDT POCT GLUCOSE METER UNSOLICITED DCRZPQFMggxqfd47/31/2025 12:18 PM EDT RIGHT HEART RWLITemtoqf22/31/2025 11:44 AM EDT Acute on chronic heart failure with preserved ejection fraction (HFpEF) ([facility]) %ZYW5Uyqlxuh98/31/2025 11:42 AM EDT ECG 12-ELGHWgkiaso58/31/2025 9:14 AM EDT COMPLETE ECHO (TTE)Hkabltz3005/02/2025 8:30 AM EDT TSH3 REFLEX TO MU3Nnt-Ty85/31/2025 5:46 AM EDT IRON AND TIBCAdd-On05/02/2025 5:46 AM EDT RETICULOCYTE PANELAdd-On05/02/2025 5:46 AM EDT JMMWpmjvdc40/31/2025 5:46 AM EDT FOLATEAdd-On05/02/2025 5:46 AM EDT FERRITINAdd-On05/02/2025 5:46 AM EDT VITAMIN N67Bup-Sw64/31/2025 5:46 AM EDT BASIC METABOLIC TYBTCNcnnmgn65/31/2025 5:46 AM EDT MYOQCOA9905/02/2025 12:24 AM EDT B-TYPE NATRIURETIC MYXWYMAHWOB36/31/2025 12:24 AM EDT FZPXRTETHTOHL72/31/2025 12:24 AM EDT BASIC METABOLIC LCSKIOQFW08/31/2025 12:24 AM EDT documented in this encounter Results * (ABNORMAL) POCT glucose meter (05/04/2025 11:23 AM EST)ComponentValueRef Range Test MethodAnalysis TimePerformed AtPathologist SignatureGlucose CGM262(H)70 - 105 mg/dL05/04/2025 11:35 AM [facility] ([place])Comment:jarizme Specimen (Source)Anatomical Location / LateralityCollection Method / Volume Collection TimeReceived TimeBloodCapillary blood specimen / Fxohdht2205/04/2025 11:23 AM EST05/04/2025 11:35 AM EST Narrative [facility] ([place]) - 05/04/2025 11:35 AM EST Waived Testing in the ED is performed under the ED CLIA certificate #[id number]. Authorizing ProviderResult TypeResult StatusEh SNEED BLOOD ORDERABLESFinal ResultPerforming OrganizationAddressCity/State/ZIP CodePhone Number [facility] ([facility]) [address] [place] [address] * (ABNORMAL) Basic metabolic panel (05/04/2025 8:02 AM EST)ComponentValueRef RangeTest MethodAnalysis TimePerformed AtPathologist EkvebcjraKqppns776509 - 145 mmol/L107/04/2024 8:41 AM [facility] ([facility])Potassium4.03.5 - 5.1 mmol/L107/04/2024 8:41 AM [facility] ([facility])Opbzeabh21513 - 107 mmol/L107/04/2024 8:41 AM [facility] ([facility])VP76674 - 31 mmol/L 05/04/2025 8:41 AM [facility] ([facility])BUN64(H)7 - 25 mg/dL05/04/2025 8:41 AM [facility] ([facility])Creatinine2.55(H)0.60 - 1.20 mg/dL 05/04/2025 8:41 AM [facility] ([facility])Hhmyvto297(H)70 - 100 mg/dL 05/04/2025 8:41 AM [facility] ([facility])Calcium8.68.6 - 10.3 mg/dL 05/04/2025 8:41 AM [facility] ([facility])Anion Akb150 - 20 mmol/L 05/04/2025 8:41 AM [facility] ([facility])eGFR19.2(L)>60.0 mL/min/1.73m* 8:41 AM [facility] ([facility])Comment:The [facility]???s estimated glomerular filtration rate (eGFR) will [...] one group of individuals.BUN/Creatinine Ratio25. 8:41 AM [facility] ([facility])Specimen (Source)Anatomical Location / LateralityCollection Method / VolumeCollection TimeReceived TimeBloodVenous blood specimen / Unknown Venipuncture / Ivrhofx7205/04/2025 8:02 AM EST05/04/2025 8:15 AM EST Narrative Authorizing ProviderResult TypeResult StatusNicchelsea Higuera MDLAB BLOOD ORDERABLESFinal ResultPerforming OrganizationAddressCity/State/ZIP CodePhone Number [facility] ([facility]) [address] [place] [address] * (ABNORMAL) CBC (05/04/2025 8:02 AM EST)ComponentValueRef RangeTest Method Analysis TimePerformed AtPathologist SignatureAuto WBC8.264.00 - 10.60 10*3/uL 05/04/2025 8:28 AM [facility] ([facility])RBC2.89(L)3.80 - 5.00 10*6/uL 05/04/2025 8:28 AM [facility] ([facility])Hemoglobin8.6(L)12.0 - 15.0 g/dL05/04/2025 8:28 AM [facility] ([facility])Znafqzcspn78.0(L)36.0 - 45.0 %05/04/2025 8:28 AM [facility] ([facility])MCV90.082.0 - 98.0 fL 05/04/2025 8:28 AM [facility] ([facility])MCH29.827.0 - 33.0 pg 05/04/2025 8:28 AM [facility] ([facility])MCHC33.132.0 - 35.0 g/dL 05/04/2025 8:28 AM [facility] ([facility])RDW15.6(H)11.5 - 15.0 % 05/04/2025 8:28 AM [facility] ([facility])Sxpyzsvog701129 - 400 10*3/uL 05/04/2025 8:28 AM [facility] ([facility])Specimen (Source)Anatomical Location / LateralityCollection Method / VolumeCollection TimeReceived Time BloodVenous blood specimen / UnknownVenipuncture / Wegoaip7205/04/2025 8:02 AM EST05/04/2025 8:16 AM EST Narrative Authorizing ProviderResult TypeResult StatusEh Higuera MDN[facility] BLOOD ORDERABLESFinal ResultPerforming OrganizationAddressCity/State/ZIP CodePhone Number [facility]) [address] [place] [address] * (ABNORMAL) POCT glucose meter (05/03/2025 8:12 PM EDT)ComponentValueRef Range Test MethodAnalysis TimePerformed AtPathologist SignatureGlucose GWC349(H)70 - 105 mg/dL05/03/2025 8:24 PM [facility] ([facility])Comment:[email or web address] Specimen (Source)Anatomical Location / LateralityCollection Method / Volume Collection TimeReceived TimeBloodCapillary blood specimen / Guhxspo1105/03/2025 8:12 PM EDT107/03/2024 8:24 PM EDT Narrative [facility] ([facility]) - 05/03/2025 8:24 PM EDT Waived Testing in the ED is performed under the ED CLIA certificate #[id number]. Authorizing ProviderResult TypeResult StatusEh Higuera MDN[facility] BLOOD ORDERABLESFinal ResultPerforming OrganizationAddressCity/State/ZIP CodePhone Number [facility] ([facility]) [address] [place] [address] * (ABNORMAL) POCT glucose meter (05/03/2025 4:41 PM EDT)ComponentValueRef Range Test MethodAnalysis TimePerformed AtPathologist SignatureGlucose JXI233(H)70 - 105 mg/dL05/03/2025 4:59 PM [facility] ([facility])Comment:[email or web address] Specimen (Source)Anatomical Location / LateralityCollection Method / Volume Collection TimeReceived TimeBloodCapillary blood specimen / Czpuuch6305/03/2025 4:41 PM EDT107/03/2024 4:59 PM EDT Narrative [facility] ([facility]) - 05/03/2025 4:59 PM EDT Waived Testing in the ED is performed under the ED CLIA certificate #[id number]. Authorizing ProviderResult TypeResult StatusEh SNEED BLOOD ORDERABLESFinal ResultPerforming OrganizationAddressCity/State/ZIP CodePhone Number [facility] ([facility]) [address] [place] [address] * (ABNORMAL) Urinalysis microscopic (05/03/2025 3:01 PM EDT)ComponentValueRef RangeTest MethodAnalysis TimePerformed AtPathologist SignatureRBC, Urine3-5(A) None Seen, 0-2 /HPF05/03/2025 3:25 PM [facility] ([facility])WBC, Urine 0-2None Seen, 0-2 /HPF05/03/2025 3:25 PM [facility] ([facility])Squamous Epithelial, UrineFewNone Seen, Occasional, Few /LPF107/03/2024 3:25 PM [facility] ([facility])Mucus, UrineOccasionalNone Seen, Occasional, Few /LPF 05/03/2025 3:25 PM [facility] ([facility])Specimen (Source)Anatomical Location / LateralityCollection Method / VolumeCollection TimeReceived Time UrineUrine specimen obtained by clean catch procedure / UnknownNon-blood Collection / Gcwarru4405/03/2025 3:01 PM EDT107/03/2024 3:10 PM EDT Narrative Authorizing ProviderResult TypeResult StatusJazzmine SNEED URINE ORDERABLESFinal ResultPerforming OrganizationAddressCity/State/ZIP CodePhone Number [facility] ([facility]) [address] [place] [address] * (ABNORMAL) Urinalysis (05/03/2025 3:01 PM EDT)ComponentValueRef RangeTest MethodAnalysis TimePerformed AtPathologist SignatureColor, UrineLight-Yellow Colorless, Yellow, Light-Pxfswe8705/03/2025 3:25 PM [facility] ([facility])Clarity, QufaaAtczwBdodc74/01/2025 3:25 PM [facility] ([facility])pH, Urine5.05.0 - 8.0 pH05/03/2025 3:25 PM [facility] ([facility])Leukocytes, GctfaDnllgnkaAfsgbcsq07/01/2025 3:25 PM [facility] ([facility])Nitrite, YoqyvHwfpficzHcwkxxzz89/01/2025 3:25 PM [facility] ([facility])Protein, Urine30(A)Negative mg/dL05/03/2025 3:25 PM [facility] ([facility])Glucose, UrineNormalNormal mg/dL05/03/2025 3:25 PM EDT [facility] ([facility])Bilirubin, AbavtRuvfxqofWqjuixmg72/01/2025 3:25 PM [facility] ([facility])Specific [place], Urine1.008(L)1.010 - 1.030 05/03/2025 3:25 PM [facility] ([facility])Ketones, UrineNegativeNegative mg/dL05/03/2025 3:25 PM [facility] ([facility])Blood, UrineNegative Slwzkhix25/01/2025 3:25 PM [facility] ([facility])Urobilinogen, Urine NormalNormal mg/dL05/03/2025 3:25 PM [facility] ([facility])Specimen (Source)Anatomical Location / LateralityCollection Method / VolumeCollection TimeReceived TimeUrineUrine specimen obtained by clean catch procedure / UnknownNon-blood Collection / Wvzfnpj5205/03/2025 3:01 PM EDT107/03/2024 3:10 PM EDT Narrative Authorizing ProviderResult TypeResult StatusMuhammakevon SNEED URINE ORDERABLESFinal ResultPerforming OrganizationAddressCity/State/ZIP CodePhone Number [facility] ([facility]) [address] [place] [address] * Creatinine, urine, random (05/03/2025 3:01 PM EDT)ComponentValueRef RangeTest MethodAnalysis TimePerformed AtPathologist SignatureCreatinine, Ur40.026 - 299 mg/dL05/03/2025 3:31 PM [facility] ([facility])Specimen (Source) Anatomical Location / LateralityCollection Method / VolumeCollection Time Received TimeUrineUrine specimen obtained by clean catch procedure / Unknown Non-blood Collection / Dhzeutf9205/03/2025 3:01 PM EDT107/03/2024 3:10 PM EDT Narrative Authorizing ProviderResult TypeResult StatusJazzmine SNEED URINE ORDERABLESFinal ResultPerforming OrganizationAddressty/State/ZIP CodePhone Number [facility]) [address] [place] [address] * Protein, urine, random (05/03/2025 3:01 PM EDT)ComponentValueRef RangeTest MethodAnalysis TimePerformed AtPathologist SignatureProtein, Ur105.9mg/dL 05/03/2025 3:31 PM [facility] ([facility])Comment:There are no established reference values for random urine specimens.Specimen (Source) Anatomical Location / LateralityCollection Method / VolumeCollection Time Received TimeUrineUrine specimen obtained by clean catch procedure / Unknown Non-blood Collection / Jijrviz4405/03/2025 3:01 PM EDT107/03/2024 3:10 PM EDT Narrative Authorizing ProviderResult TypeResult StatusJazzmine SNEED URINE ORDERABLESFinal ResultPerforming OrganizationAddressty/State/ZIP CodePhone Number [facility]) [address] [place] [address] * (ABNORMAL) POCT glucose meter (05/03/2025 11:41 AM EDT)ComponentValueRef Range Test MethodAnalysis TimePerformed AtPathologist SignatureGlucose VQW152(H)70 - 105 mg/dL05/03/2025 12:01 PM [facility] ([facility])Comment:[email or web address] Specimen (Source)Anatomical Location / LateralityCollection Method / Volume Collection TimeReceived TimeBloodCapillary blood specimen / Awaqtye4505/03/2025 11:41 AM EDT107/03/2024 12:01 PM EDT Narrative [facility] ([facility]) - 05/03/2025 12:01 PM EDT Waived Testing in the ED is performed under the ED CLIA certificate #[id number]. Authorizing ProviderResult TypeResult Meliton SNEED BLOOD ORDERABLESFinal ResultPerforming OrganizationAddressCity/State/ZIP CodePhone Number [facility]) [address] [place] [address] * (ABNORMAL) POCT glucose meter (05/03/2025 7:59 AM EDT)ComponentValueRef Range Test MethodAnalysis TimePerformed AtPathologist SignatureGlucose ZWJ543(H)70 - 105 mg/dL05/03/2025 8:12 AM [facility] ([facility])Comment:[email or web address] Specimen (Source)Anatomical Location / LateralityCollection Method / Volume Collection TimeReceived TimeBloodCapillary blood specimen / Osijjpu3205/03/2025 7:59 AM EDT107/03/2024 8:12 AM EDT Narrative [facility] ([facility]) - 05/03/2025 8:12 AM EDT Waived Testing in the ED is performed under the ED CLIA certificate #[id number]. Authorizing ProviderResult TypeResult StatusEh SNEED BLOOD ORDERABLESFinal ResultPerforming OrganizationAddressCity/State/ZIP CodePhone Number [facility]) [address] [place] [address] * (ABNORMAL) PTH, intact (05/03/2025 7:15 AM EDT)ComponentValueRef RangeTest MethodAnalysis TimePerformed AtPathologist QqplghkgvQLG295(H)12 - 88 pg/mL 05/03/2025 1:53 PM [facility] ([facility])Specimen (Source)Anatomical Location / LateralityCollection Method / VolumeCollection TimeReceived Time BloodVenous blood specimen / UnknownVenipuncture / Slwlxyj7705/03/2025 7:15 AM EDT107/03/2024 7:40 AM EDT Narrative Authorizing ProviderResult TypeResult Linda SNEED BLOOD ORDERABLESFinal ResultPerforming OrganizationAddressCity/State/ZIP CodePhone Number [facility]) [address] [place] [address] * Phosphorus (05/03/2025 7:15 AM EDT)ComponentValueRef RangeTest MethodAnalysis TimePerformed AtPathologist SignaturePhosphorus4.22.5 - 5.0 mg/dL05/03/2025 1:33 PM [facility] ([facility])Specimen (Source)Anatomical Location / LateralityCollection Method / VolumeCollection TimeReceived TimeBloodVenous blood specimen / UnknownVenipuncture / Caullrh2505/03/2025 7:15 AM EDT107/03/2024 7:40 AM EDT Narrative Authorizing ProviderResult TypeResult StatusMuhamargelia SNEED BLOOD ORDERABLESFinal ResultPerforming OrganizationAddressCity/State/ZIP CodePhone Number [facility]) [address] [place] [address] * (ABNORMAL) Basic metabolic panel (05/03/2025 7:15 AM EDT)ComponentValueRef RangeTest MethodAnalysis TimePerformed AtPathologist UjjeyrqdmDrsxza472607 - 145 mmol/L107/03/2024 8:05 AM [facility] ([facility])Potassium4.03.5 - 5.1 mmol/L107/03/2024 8:05 AM [facility] ([facility])Hkwqbdpj288(H)98 - 107 mmol/L107/03/2024 8:05 AM [facility] ([facility])CO220(L)21 - 31 mmol/L107/03/2024 8:05 AM [facility] ([facility])BUN61(H)7 - 25 mg/dL 05/03/2025 8:05 AM [facility] ([facility])Creatinine2.76(H)0.60 - 1.20 mg/dL05/03/2025 8:05 AM [facility] ([facility])Mlaygnf573(H)70 - 100 mg/dL05/03/2025 8:05 AM [facility] ([facility])Calcium8.68.6 - 10.3 mg/dL05/03/2025 8:05 AM [facility] ([facility])Anion Wqr674 - 20 mmol/L 05/03/2025 8:05 AM [facility] ([facility])eGFR17.5(L)>60.0 mL/min/1.73m* 8:05 AM [facility] ([facility])Comment:[facility]???s estimated glomerular filtration rate (eGFR) will [...] one group of individuals.BUN/Creatinine Ratio22. 8:05 AM [facility] ([facility])Specimen (Source)Anatomical Location / LateralityCollection Method / VolumeCollection TimeReceived TimeBloodVenous blood specimen / Unknown Venipuncture / Hxtpfab7905/03/2025 7:15 AM EDT107/03/2024 7:40 AM EDT Narrative Authorizing ProviderResult TypeResult StatusNicchelsea Higuera MDLAB BLOOD ORDERABLESFinal ResultPerforming OrganizationAddressCity/State/ZIP CodePhone Number [facility] ([facility]) [address] [place] [address] * (ABNORMAL) CBC (05/03/2025 7:15 AM EDT)ComponentValueRef RangeTest Method Analysis TimePerformed AtPathologist SignatureAuto WBC9.334.00 - 10.60 10*3/uL 05/03/2025 7:49 AM [facility] ([facility])RBC2.96(L)3.80 - 5.00 10*6/uL 05/03/2025 7:49 AM [facility] ([facility])Hemoglobin8.8(L)12.0 - 15.0 g/dL05/03/2025 7:49 AM [facility] ([facility])Quamokhkkg36.5(L)36.0 - 45.0 %05/03/2025 7:49 AM [facility] ([facility])MCV89.582.0 - 98.0 fL 05/03/2025 7:49 AM [facility] ([facility])MCH29.727.0 - 33.0 pg 05/03/2025 7:49 AM [facility] ([facility])MCHC33.232.0 - 35.0 g/dL 05/03/2025 7:49 AM [facility] ([facility])RDW15.5(H)11.5 - 15.0 % 05/03/2025 7:49 AM [facility] ([facility])Sjkdqzjkp634776 - 400 10*3/uL 05/03/2025 7:49 AM [facility] ([facility])Specimen (Source)Anatomical Location / LateralityCollection Method / VolumeCollection TimeReceived Time BloodVenous blood specimen / UnknownVenipuncture / Mgodmpk5205/03/2025 7:15 AM EDT107/03/2024 7:41 AM EDT Narrative Authorizing ProviderResult TypeResult StatusEh Higuera MDLAB BLOOD ORDERABLESFinal ResultPerforming OrganizationAddressCity/State/ZIP CodePhone Number [facility] ([facility]) [address] [place] [id number] * (ABNORMAL) POCT glucose meter (05/02/2025 8:10 PM EDT)ComponentValueRef Range Test MethodAnalysis TimePerformed AtPathologist SignatureGlucose OCX055(H)70 - 105 mg/dL05/02/2025 8:35 PM [facility] ([facility])Comment:[email or web address] Specimen (Source)Anatomical Location / LateralityCollection Method / Volume Collection TimeReceived TimeBloodCapillary blood specimen / Arvjjbp2905/02/2025 8:10 PM EDT1 8:35 PM EDT Narrative [facility] ([facility]) - 05/02/2025 8:35 PM EDT Waived Testing in the ED is performed under the ED CLIA certificate #[id number]. Authorizing ProviderResult TypeResult StatusEh SNEED BLOOD ORDERABLESFinal ResultPerforming OrganizationAddressCity/State/ZIP CodePhone Number [facility] ([facility]) [address] [place] [address] * (ABNORMAL) POCT glucose meter (05/02/2025 5:37 PM EDT)ComponentValueRef Range Test MethodAnalysis TimePerformed AtPathologist SignatureGlucose KLW400(H)70 - 105 mg/dL05/02/2025 5:49 PM EDTCL[facility] ([facility])Comment:asavill Specimen (Source)Anatomical Location / LateralityCollection Method / Volume Collection TimeReceived TimeBloodCapillary blood specimen / Xewzwge1205/02/2025 5:37 PM EDT1 5:49 PM EDT Narrative [facility] ([facility]) - 05/02/2025 5:49 PM EDT Waived Testing in the ED is performed under the ED CLIA certificate #[id number]. Authorizing ProviderResult TypeResult StatusEh SNEED BLOOD ORDERABLESFinal ResultPerforming OrganizationAddressCity/State/ZIP CodePhone Number [facility] ([facility]) [address] [place] [address] * XR chest 1 view (05/02/2025 2:14 [...] Electronically signed: Julio Andrew. Authorizing ProviderResult TypeResult StatusEh Higuera MDIMG XR PROCEDURESFinal Result * (ABNORMAL) POCT glucose meter (05/02/2025 12:18 PM EDT)ComponentValueRef Range Test MethodAnalysis TimePerformed AtPathologist SignatureGlucose IPY245(H)70 - 105 mg/dL05/02/2025 12:29 PM EDTCL[facility] ([facility])Comment:isegura2 Specimen (Source)Anatomical Location / LateralityCollection Method / Volume Collection TimeReceived TimeBloodCapillary blood specimen / Rqqcxxo6705/02/2025 12:18 PM EDT1 12:29 PM EDT Narrative [facility] ([facility]) - 05/02/2025 12:29 PM EDT Waived Testing in the ED is performed under the ED CLIA certificate #[id number]. Authorizing ProviderResult TypeResult Meliton Higuera MDLAB BLOOD ORDERABLESFinal ResultPerforming OrganizationAddressCity/State/ZIP CodePhone Number [facility] ([facility]) [address] [place] [address] * RIGHT HEART CATH (05/02/2025 11:44 AM [...] ??This was exchanged out for a 6 Thai 11 cm sheath. Right heart catheterization was [...] ??He was to be transferred to the [facility] area in stable condition. FINDINGS: ?? Hemodynamics: RA 16 RV ??56/9, 15 PA ??56/27 [42] PCWP 31 TPG ??11 AO ??161/58 [98] Cardiac output /cardiac index 5.00/3.29 AO sat /PA sat 95%/64% INDICATIONS: Acute on chronic heart failure with preserved ejection fraction Authorizing ProviderResult TypeResult StatusGeorge Moukarbel [facility] CARDIAC CATH PROCEDURESFinal Result * (ABNORMAL) %HbO2 (05/02/2025 11:42 AM EDT)ComponentValueRef RangeTest Method Analysis TimePerformed AtPathologist UbzoopyehD2No%64.1(L)90.0 - 95.0 % 05/02/2025 11:42 AM EDTCL[facility] ([facility])Specimen (Source)Anatomical Location / LateralityCollection Method / VolumeCollection TimeReceived Time BloodVenous blood specimen / Mgegftc3205/02/2025 11:42 AM EDT1 11:42 AM EDT Narrative Authorizing ProviderResult TypeResult StatusNicchelsea SNEED POINT OF CARE TEST DOCKED DEVICE UNSOLICITED RESULTSFinal ResultPerforming Organization AddressCity/State/ZIP CodePhone Number [facility] ([facility]) [address] [place] [address] * ECG 12 lead (05/02/2025 9:14 AM EDT)ComponentValueRef RangeTest MethodAnalysis TimePerformed AtPathologist SignatureVentricular Jcte07ZYYUB MUSEAtrial Rate 74BPMGE MUSEPR Cqogecuj992qhDT MUSEQRS ETENWMNX91xiAR MUSEQT Uararhxm007ncHT MUSEQTC CALCULATION(BAZETT)455msGE MUSEP Fdsn01bwvwsqpBF MUSER-Hzqz33albbjwnRK MUSET Wave Ecoz020wvlerivPS MUSESpecimen (Source)Anatomical Location / LateralityCollection Method / VolumeCollection TimeReceived Time05/02/2025 9:12 AM EDT1 4:37 PM EDT Impressions GE MUSE - 05/02/2025 4:37 PM EDT Normal sinus rhythm Abnormal QRS-T angle, consider primary T wave abnormality Abnormal ECG When compared with ECG of 14-JUL-2020 06:44, ST no longer elevated in Lateral Nonspecific T wave abnormality now evident in Lateral Confirmed by Chela FERRO, LUIS Salvador (58) on 05/02/2025 4:37:20 PM Narrative Procedure Note Luis Ferro MD - 05/02/2025 IMPRESSION: Normal sinus rhythm Abnormal QRS-T angle, consider primary T wave abnormality Abnormal ECG When compared with ECG of 14-JUL-2020 06:44, ST no longer elevated in Lateral Nonspecific T wave abnormality now evident in Lateral Confirmed by Chela FERRO, LUIS Salvador (57) on 05/02/2025 4:37:20 PM Authorizing ProviderResult TypeResult StatusEh Higuera MDECG ORDERABLES Final ResultPerforming OrganizationAddressCity/State/ZIP CodePhone Number GE MUSE * COMPLETE ECHO (TTE) (05/02/2025 8:30 AM EDT)Anatomical RegionLaterality ModalityOtherSpecimen (Source)Anatomical Location / LateralityCollection Method / VolumeCollection TimeReceived Time05/02/2025 7:57 AM EDT Narrative 05/02/2025 12:21 PM EDT 1 1 [facility] Heart Station [address] [place] [address] [phone] (fax) Echocardiogram-[facility] Name: CLAUDIA POLO Study Date: 05/02/2025 07:57 AM B/P: 164 mmHg/64 mmHg HR: 72 bpm Date of : 1950 Location: [facility] Height: 56 in. Age: 75 year(s) Patient [...] No pericardial effusion. Procedure Staff Reading Group: [facility] Referring Physician: JOHN PERDOMO ??Gold Leaf Roller: HALLE Jacob Ordering Physician: EH HIGUERA ?? Procedure Note Arturo Baker MD - 05/02/2025 1 1 [facility] Heart Station [address] [place] [address] [phone] (fax) Echocardiogram-[facility] Name: CLAUDIA POLO Study Date: 05/02/2025 07:57 AM B/P: 164 mmHg/64 mmHg HR: 72 bpm Date of : 1950 Location: [facility] Height: 56 in. Age: 75 year(s) Patient [...] No pericardial effusion. Procedure Staff Reading Group: [facility] Referring Physician: JOHN PERDOMO Gold Leaf Roller: Jessica Bain [facility] Ordering Physician: EH HIGUERA Authorizing ProviderResult TypeResult StatusEh Higuera MDCV ECHO PROCEDURESFinal Result * (ABNORMAL) Reticulocyte panel (05/02/2025 5:46 AM EDT)ComponentValueRef Range Test MethodAnalysis TimePerformed AtPathologist SignatureRetic Ct Abs0.1054(H) 0.0250 - 0.1000 10*6/uL05/02/2025 6:17 PM [facility] ([facility])Retic Ct Pct3.50(H)0.50 - 1.80 %05/02/2025 6:17 PM [facility] ([facility]) Immature Reticulocyte Fraction %22.4(H)2 - 16 %05/02/2025 6:17 PM [facility] ([facility])Reticulocyte Hkzmxahyza55.928.0 - 36.0 pg05/02/2025 6:17 PM [facility] ([facility])Specimen (Source)Anatomical Location / LateralityCollection Method / VolumeCollection TimeReceived TimeBloodVenous blood specimen / UnknownVenipuncture / Zbhnxug3205/02/2025 5:46 AM EDT1 6:09 AM EDT Narrative Authorizing ProviderResult TypeResult Meliton Higuera [facility] BLOOD ORDERABLESFinal ResultPerforming OrganizationAddressCity/State/ZIP CodePhone Number [facility] ([facility]) [address] [place] [address] * (ABNORMAL) Iron and TIBC (05/02/2025 5:46 AM EDT)ComponentValueRef RangeTest MethodAnalysis TimePerformed AtPathologist WhxtagsbnTrsa8321 - 212 ug/dL 05/02/2025 6:25 PM [facility] ([facility])QNTH885(L)250 - 450 ug/dL 05/02/2025 6:25 PM [facility] ([facility])Iron Lrcfkzwems2505 - 50 % 05/02/2025 6:25 PM [facility] ([facility])SNIT921.0155.0 - 355.0 ug/dL 05/02/2025 6:25 PM [facility] ([facility])Specimen (Source)Anatomical Location / LateralityCollection Method / VolumeCollection TimeReceived Time BloodVenous blood specimen / UnknownVenipuncture / Ipdxqrg8805/02/2025 5:46 AM EDT1 6:07 AM EDT Narrative Authorizing ProviderResult TypeResult Meliton SNEED BLOOD ORDERABLESFinal ResultPerforming OrganizationAddressCity/State/ZIP CodePhone Number [facility]) [address] [place] [address] * Ferritin (05/02/2025 5:46 AM EDT)ComponentValueRef RangeTest MethodAnalysis TimePerformed AtPathologist AcbemhgwcTnodkpcc975.011.0 - 307.0 ng/mL05/02/2025 6:48 PM [facility])Specimen (Source)Anatomical Location / LateralityCollection Method / VolumeCollection TimeReceived TimeBloodVenous blood specimen / UnknownVenipuncture / Cfozebh9105/02/2025 5:46 AM EDT1 6:07 AM EDT Narrative Authorizing ProviderResult TypeResult Meliton SNEED BLOOD ORDERABLESFinal ResultPerforming OrganizationAddressCity/State/ZIP CodePhone Number [facility]) [address] [place] [address] * Vitamin B12 (05/02/2025 5:46 AM EDT)ComponentValueRef RangeTest MethodAnalysis TimePerformed AtPathologist SignatureVitamin B-20141755 - 914 pg/mL05/02/2025 6:48 PM [facility])Comment: REFERENCE RANGES: 180-914 pg/mL ??Normal 145-179 pg/mL ??Indeterminate <145 pg/mL Deficient Specimen (Source)Anatomical Location / LateralityCollection Method / Volume Collection TimeReceived TimeBloodVenous blood specimen / UnknownVenipuncture / Yiiiytt7405/02/2025 5:46 AM EDT1 6:07 AM EDT Narrative Authorizing ProviderResult TypeResult Meliton SNEED BLOOD ORDERABLESFinal ResultPerforming OrganizationAddressCity/State/ZIP CodePhone Number [facility] ([facility]) [address] [place] [address] * Folate (05/02/2025 5:46 AM EDT)ComponentValueRef RangeTest MethodAnalysis Time Performed AtPathologist GdalxnqdnVitfpg89.266.6 - 1,000 ng/mL05/02/2025 6:48 PM [facility] ([facility])Specimen (Source)Anatomical Location / LateralityCollection Method / VolumeCollection TimeReceived TimeBloodVenous blood specimen / UnknownVenipuncture / Mhopwse8005/02/2025 5:46 AM EDT1 6:07 AM EDT Narrative Authorizing ProviderResult TypeResult StatusEh SNEED BLOOD ORDERABLESFinal ResultPerforming OrganizationAddressCity/State/ZIP CodePhone Number [facility]) [address] [place] [address] * TSH3 Reflex to FT4 (05/02/2025 5:46 AM EDT)ComponentValueRef RangeTest Method Analysis TimePerformed AtPathologist SignatureTSH4.540.34 - 5.60 mIU/L 05/02/2025 2:16 PM [facility] ([facility])Specimen (Source)Anatomical Location / LateralityCollection Method / VolumeCollection TimeReceived Time BloodVenous blood specimen / UnknownVenipuncture / Fmbmsyg5405/02/2025 5:46 AM EDT1 6:07 AM EDT Narrative Authorizing ProviderResult TypeResult StatusEh SNEED BLOOD ORDERABLESFinal ResultPerforming OrganizationAddressCity/State/ZIP CodePhone Number [facility]) [address] [place] [address] * (ABNORMAL) CBC (05/02/2025 5:46 AM EDT)ComponentValueRef RangeTest Method Analysis TimePerformed AtPathologist SignatureAuto WBC10.61(H)4.00 - 10.60 10*3/uL05/02/2025 6:52 AM [facility])RBC3.04(L)3.80 - 5.00 10*6/uL05/02/2025 6:52 AM [facility] ([facility])Hemoglobin9.0(L)12.0 - 15.0 g/dL05/02/2025 6:52 AM [facility] ([facility])Itudcrgqgt13.9(L)36.0 - 45.0 %05/02/2025 6:52 AM [facility] ([facility])MCV88.582.0 - 98.0 fL 05/02/2025 6:52 AM [facility] ([facility])MCH29.627.0 - 33.0 pg 05/02/2025 6:52 AM [facility] ([facility])MCHC33.532.0 - 35.0 g/dL 05/02/2025 6:52 AM [facility] ([facility])RDW15.3(H)11.5 - 15.0 % 05/02/2025 6:52 AM [facility] ([facility])Cbmdhpzat898197 - 400 10*3/uL 05/02/2025 6:52 AM [facility] ([facility])Specimen (Source)Anatomical Location / LateralityCollection Method / VolumeCollection TimeReceived Time BloodVenous blood specimen / UnknownVenipuncture / Qkflrui2905/02/2025 5:46 AM EDT1 6:09 AM EDT Narrative Authorizing ProviderResult TypeResult StatusMalEl Camino Hospital BLOOD ORDERABLESFinal ResultPerforming OrganizationAddressCity/State/ZIP CodePhone Number [facility] ([facility]) [address] [place] [address] * (ABNORMAL) Basic metabolic panel (05/02/2025 5:46 AM EDT)ComponentValueRef RangeTest MethodAnalysis TimePerformed AtPathologist JsvrcjbqmDwrpuo315968 - 145 mmol/L1 6:30 AM [facility] ([facility])Potassium3.93.5 - 5.1 mmol/L1 6:30 AM [facility] ([facility])Lhbmoedi532(H)98 - 107 mmol/L1 6:30 AM [facility] ([facility])KI87530 - 31 mmol/L 05/02/2025 6:30 AM [facility] ([facility])BUN60(H)7 - 25 mg/dL05/02/2025 6:30 AM [facility] ([facility])Creatinine2.77(H)0.60 - 1.20 mg/dL 05/02/2025 6:30 AM [facility] ([facility])Qncqows151(H)70 - 100 mg/dL 05/02/2025 6:30 AM [facility] ([facility])Calcium8.68.6 - 10.3 mg/dL 05/02/2025 6:30 AM [facility] ([facility])Anion Pib541 - 20 mmol/L 05/02/2025 6:30 AM [facility] ([facility])eGFR17.4(L)>60.0 mL/min/1.73m* 6:30 AM [facility] ([facility])Comment:[facility]???s estimated glomerular filtration rate (eGFR) will [...] one group of individuals.BUN/Creatinine Ratio21. 6:30 AM [facility] ([facility])Specimen (Source)Anatomical Location / LateralityCollection Method / VolumeCollection TimeReceived TimeBloodVenous blood specimen / Unknown Venipuncture / Lyokozt1605/02/2025 5:46 AM EDT1 6:07 AM EDT Narrative Authorizing ProviderResult TypeResult StatusOsaEl Camino Hospital BLOOD ORDERABLESFinal ResultPerforming OrganizationAddressCity/State/ZIP CodePhone Number [facility] ([facility]) [address] [place] [address] * Magnesium (05/02/2025 12:24 AM EDT)ComponentValueRef RangeTest MethodAnalysis TimePerformed AtPathologist SignatureMagnesium2.11.9 - 2.7 mg/dL05/02/2025 1:00 AM [facility] ([facility])Specimen (Source)Anatomical Location / LateralityCollection Method / VolumeCollection TimeReceived TimeBloodVenous blood specimen / UnknownVenipuncture / Hqzfapb1705/02/2025 12:24 AM EDT 05/02/2025 12:37 AM EDT Narrative Authorizing ProviderResult TypeResult StatusMalyovani [facility] BLOOD ORDERABLESFinal ResultPerforming OrganizationAddressCity/State/ZIP CodePhone Number [facility] ([facility]) [address] [place] [address] * (ABNORMAL) B-type natriuretic peptide (05/02/2025 12:24 AM EDT)ComponentValue Ref RangeTest MethodAnalysis TimePerformed AtPathologist SignatureBNP1,236(H)0 - 100 pg/mL05/02/2025 1:10 AM [facility] ([facility])Specimen (Source) Anatomical Location / LateralityCollection Method / VolumeCollection Time Received TimeBloodVenous blood specimen / UnknownVenipuncture / Unknown 05/02/2025 12:24 AM EDT1 12:33 AM EDT Narrative Authorizing ProviderResult TypeResult StatusMalyovani Patel [facility] BLOOD ORDERABLESFinal ResultPerforming OrganizationAddressCity/State/ZIP CodePhone Number [facility] ([facility]) [address] [place] [address] * (ABNORMAL) Basic metabolic panel (05/02/2025 12:24 AM EDT)ComponentValueRef RangeTest MethodAnalysis TimePerformed AtPathologist DzaemxoauCydztx959791 - 145 mmol/L1 1:00 AM [facility] ([facility])Potassium3.93.5 - 5.1 mmol/L1 1:00 AM [facility] ([facility])Ptfmyuzs32707 - 107 mmol/L1 1:00 AM [facility] ([facility])GU17451 - 31 mmol/L 05/02/2025 1:00 AM [facility] ([facility])BUN58(H)7 - 25 mg/dL05/02/2025 1:00 AM [facility] ([facility])Creatinine2.85(H)0.60 - 1.20 mg/dL 05/02/2025 1:00 AM [facility] ([facility])Ylxfwmk404(H)70 - 100 mg/dL 05/02/2025 1:00 AM [facility] ([facility])Calcium8.5(L)8.6 - 10.3 mg/dL 05/02/2025 1:00 AM [facility] ([facility])Anion Ovp407 - 20 mmol/L 05/02/2025 1:00 AM [facility] ([facility])eGFR16.8(L)>60.0 mL/min/1.73m* 1:00 AM [facility] ([facility])Comment:[facility]???s estimated glomerular filtration rate (eGFR) will [...] one group of individuals.BUN/Creatinine Ratio20. 1:00 AM [facility] ([facility])Specimen (Source)Anatomical Location / LateralityCollection Method / VolumeCollection TimeReceived TimeBloodVenous blood specimen / Unknown Venipuncture / Uoutqto9105/02/2025 12:24 AM EDT1 12:37 AM EDT Narrative Authorizing ProviderResult TypeResult StatusOsaEl Camino Hospital BLOOD ORDERABLESFinal ResultPerforming OrganizationAddressCity/State/ZIP CodePhone Number [facility] ([facility]) [address] [place] [address] * (ABNORMAL) CBC (05/02/2025 12:24 AM EDT)ComponentValueRef RangeTest Method Analysis TimePerformed AtPathologist SignatureAuto WBC10.314.00 - 10.60 10*3/uL05/02/2025 12:42 AM [facility] ([facility])RBC2.93(L)3.80 - 5.00 10*6/uL05/02/2025 12:42 AM [facility] ([facility])Hemoglobin8.5(L)12.0 - 15.0 g/dL05/02/2025 12:42 AM [facility] ([facility])Gwedfsqdcx29.1(L) 36.0 - 45.0 %05/02/2025 12:42 AM [facility] ([facility])MCV89.182.0 - 98.0 fL05/02/2025 12:42 AM [facility])MCH29.027.0 - 33.0 pg 05/02/2025 12:42 AM [facility])MCHC32.632.0 - 35.0 g/dL 05/02/2025 12:42 AM [facility] ([facility])RDW15.3(H)11.5 - 15.0 % 05/02/2025 12:42 AM [facility] ([facility])Himysselz879259 - 400 10*3/uL 05/02/2025 12:42 AM [facility] ([facility])Specimen (Source)Anatomical Location / LateralityCollection Method / VolumeCollection TimeReceived Time BloodVenous blood specimen / UnknownVenipuncture / Lenklcg6405/02/2025 12:24 AM EDT1 12:33 AM EDT Narrative Authorizing ProviderResult TypeResult StatusOsayovain [facility] BLOOD ORDERABLESFinal ResultPerforming OrganizationAddressCity/State/ZIP CodePhone Number [facility] ([facility]) [address] [facility] [place] [address] documented in this encounter Visit Diagnoses Diagnosis Acute on chronic heart failure with preserved ejection fraction (HFpEF) ([facility])- Primary Acute on chronic heart failure with preserved ejection fraction (HFpEF) ([facility]) Coronary arteriosclerosis Coronary atherosclerosis of unspecified type of vessel, venetie or graft Essential (primary) hypertension Unspecified essential hypertension Chronic diastolic heart failure ([facility]) Chronic diastolic heart failure Goiter Goiter, unspecified Hypertensive disorder Unspecified essential hypertension Stage 4 chronic kidney disease ([facility]) Type 2 diabetes mellitus ([facility]) Acute on chronic heart failure with preserved ejection fraction (HFpEF) ([facility]) documented in this encounter Admitting Diagnoses Diagnosis Acute on chronic heart failure with preserved ejection fraction (HFpEF) ([facility]) documented in this encounter Administered Medications Medication OrderMAR ActionAction DateDoseRateSite allopurinol (Zyloprim) tablet 100 mg 100 mg, oral, Nightly, First dose (after last reorder) on Mon05/02/25 at 2200, For 99 days Given05/03/2025 9:32 PM GTX564 seBmghi2505/02/2025 10:15 PM WYO973 mg amLODIPine (Norvasc) tablet 10 mg 10 mg, oral, Daily, First dose on Mon05/01/25 at 2115, For 99 days Given05/04/2025 10:00 AM EST10 ocZaych9005/03/2025 9:30 AM EDT10 meJnlma2305/02/2025 1:38 PM EDT10 mg aspirin EC tablet 81 mg 81 mg, oral, Every morning, First dose on Mon05/02/25 at 1000, For 99 days, Do not crush, chew, orsplit. Given05/04/2025 10:00 AM EST81 onSkstn2805/03/2025 9:30 AM EDT81 lvQehdl8005/02/2025 1:08 PM EDT81 mg atorvastatin (Lipitor) tablet 40 mg 40 mg, oral, Nightly, First dose on Mon05/01/25 at 2200, For 99 days Given05/03/2025 9:31 PM EDT40 juAvpkc0705/02/2025 10:15 PM EDT40 wxPzqxi7305/01/2025 10:01 PM EDT40 mg bumetanide (Bumex) injection 3 mg 3 mg, intravenous, Administer over 1 Minutes, 2 times daily, First dose (after last modification) on Mon05/02/25 at 1000 Given05/04/2025 10:00 AM EST3 klEuujc2005/03/2025 9:31 PM EDT3 nhCkonf8405/03/2025 9:30 AM EDT3 mg dextrose 50 % [...] or tube feeding bolus) fentaNYL (Sublimaze) injection As needed, Starting on Mon05/02/25 at 1120, Intraprocedure Given05/02/2025 11:34 AM EDT25 hjtQnitg93/31/2025 11:20 AM EDT25 mcg glucose chewable tablet 24 g 24 g, [...] deep vein thrombosis prevention Indications:deep vein thrombosis yukpmaqruzAbrbj40/02/2025 10:00 AM EST5,000 UnitsLeft Lower FkinouaNcvgg30/01/2025 9:31 PM EDT5,000 UnitsRight Lower Abdomen Given05/03/2025 9:30 AM EDT5,000 UnitsLeft Lower Abdomen heparin irrigation 2 units/mL in NS As needed, Starting on Mon05/02/25 at 1107, Intraprocedure Given05/02/2025 11:07 AM EDT1,000 mL hydrALAZINE (Apresoline) tablet 50 mg 50 mg, oral, 2 times daily, First dose on Mon05/01/25 at 2200, For 99 days Given05/04/2025 10:00 AM EST50 lyBjzof1705/03/2025 9:31 PM EDT50 gjRchwg2205/03/2025 9:30 AM EDT50 mg insulin lispro (HumaLOG) [...] Physician Given05/04/2025 12:22 PM EST1 UnitsLeft Upper IksykdiNevgw07/01/2025 5:51 PM EDT 1 UnitsLeft Lower OechkfeEtlyy64/01/2025 12:43 PM EDT1 UnitsLeft Lower Abdomen isosorbide mononitrate ER (Imdur) 24 hr tablet 30 mg 30 mg, oral, Once Daily, First dose on Mon05/02/25 at 0900, For 99 days, Do not crush, chew, or split. Given05/04/2025 9:59 AM EST30 giFclvy1305/03/2025 9:30 AM EDT30 sbMrosg1005/02/2025 1:38 PM EDT30 mg levothyroxine (Synthroid, Levoxyl) tablet 75 mcg 75 mcg, oral, Daily, First dose on Mon05/01/25 at 2115, For 99 days Given05/04/2025 6:11 AM EST75 pazCzmzk54/01/2025 6:33 AM EDT75 mcgGiven 05/02/2025 5:25 AM EDT75 mcg lidocaine (PF) (Xylocaine) 10 mg/mL (1 %) injection As needed, Starting on Mon05/02/25 at 1107, Intraprocedure Given05/02/2025 11:07 AM EDT10 mL metoprolol tartrate (Lopressor) tablet 75 mg 75 mg, oral, 2 times daily RT, First dose (after last modification) on Mon05/02/25 at 0800, For 197 doses Given05/04/2025 9:00 AM EST75 mjCoxvd6905/03/2025 8:19 PM EDT75 ijXckov7205/03/2025 9:30 AM EDT75 mg midazolam (Versed) injection As needed, Starting on Mon05/02/25 at 1137, Intraprocedure Given05/02/2025 11:37 AM EDT1 mg potassium chloride CR (Klor-Con M20) ER tablet 40 mEq 40 mEq, oral, Daily, First dose on Mon05/01/25 at 2115, For 99 days, Best given with food and plenty of water to minimize gastric irritation. Do not crush or chew. Given05/04/2025 9:59 AM EST40 kAtFddfm26/01/2025 9:30 AM EDT40 mEqGiven 05/02/2025 1:39 PM EDT40 mEq sodium bicarbonate tablet 650 mg 650 mg, oral, 2 times daily, First dose on Mon05/03/25 at 1300, For 99 days Given05/04/2025 10:00 AM TFM355 rsRlvww1205/03/2025 9:32 PM YSE268 mgGiven 05/03/2025 1:43 PM EPX763 mg sodium chloride 0.9 % infusion Continuous PRN, Starting on Mon05/02/25 at 1107, Intraprocedure New Bag05/02/2025 11:07 AM EDT20 mL/hr20 mL/hrdocumented in this encounter Active and Recently Administered Medications Due to Daylight Saving Time, this section may contain times in both EDT and EST. Medication Order//08/2024 allopurinol (Zyloprim) tablet 100 mg 100 mg, oral, Nightly, First dose (after last reorder) on Mon05/02/25 at 2200, For 99 days * 221 (Given - Provider: Marcos Avalos, BRYCE) * 2131 (Given - Provider: Marcos Avalos, BRYCE) amLODIPine [...] * 1000 (Given - Provider: Trudy Collado, RN) atorvastatin (Lipitor) tablet 40 mg 40 mg, oral, Nightly, First dose on Mon05/01/25 at 2200, For 99 days * 221 (Given - Provider: Marcos Avalos, BRYCE) * 2130 (Given - Provider: Marcos Avalos, BRYCE) bumetanide (Bumex) injection 3 mg 3 mg, intravenous, Administer over 1 Minutes, 2 times daily, First dose (after last modification) on Mon05/02/25 at 1000 * 1225 (Given - Provider: Jhoana Carmona, BRYCE) * 2215 (Given - Provider: Marcos Avalos, BRYCE) * 0930 (Given - Provider: Trudy Collado, BRYCE) * 213 (Given - Provider: Marcos Avalos RN) * 1000 (Given - Provider: Trudy Collado RN) heparin (porcine) injection 5,000 Units 5,000 Units, subcutaneous, Every 12 hours scheduled, First dose on Mon05/01/25 at 2200, For 99 days, Indications: deep vein thrombosis prevention * 1340 (Given - Provider: Jhoana Carmona RN) * 2215 (Given - Provider: Marcos Avalos RN) * 0930 (Given - Provider: Trudy Collado RN) * 213 (Given - Provider: Marcos Avalos RN) * 1000 (Given - Provider: Trudy Collado RN) hydrALAZINE (Apresoline) tablet 50 mg 50 mg, oral, 2 times daily, First dose on Mon05/01/25 at 2200, For 99 days * 1339 (Given - Provider: Jhoana Carmona RN) * 2214 (Given - Provider: Marcos Avalos RN) * 0930 (Given - Provider: Trudy Collado RN) * 213 (Given - Provider: Marcos Avalos RN) * 1000 (Given - Provider: Trudy Collado RN) insulin lispro (HumaLOG) injection 0-4 Units(Linked Group [...] Degroot RN - Reason: Patient/family refused) * 221 (Given - Provider: Marcos Avalos RN) * 220 (Not Given - Provider: Marcos Avalos RN [...] mg, oral, Once Daily, First dose on 05/02/25 at 0900, For 99 days, Do not crush, chew, or split. * 1338 (Given - Provider: Jhoana Carmona RN) * 0930 (Given - Provider: Trudy Collado RN) * 0959 (Given - Provider: Trudy Collado RN) levothyroxine (Synthroid, Levoxyl) tablet 75 mcg 75 [...] * 0800 (Not Given - Provider: Jhoana Carmona, BRYCE - Reason: Patient/family refused) * 2009 (Given - Provider: Marcos Avalos, RN) * 0930 (Given - Provider: Trudy Collado, RN) * 2018 (Given - Provider: Marcos Avalos, RN) * 0900 (Given - Provider: Trudy Collado, RN) potassium chloride CR (Klor-Con M20) ER tablet 40 mEq 40 mEq, oral, Daily, First dose on Mon05/01/25 at 2115, For 99 days, Best given with food and plenty of water to minimize gastric irritation. Do not crush or chew. * 1339 (Given - Provider: Jhoana Carmona RN) * 0930 (Given - Provider: Trudy Collado, BRYCE) * 0959 (Given - Provider: Trudy Collado, RN) sodium bicarbonate tablet 650 mg 650 mg, oral, 2 times daily, First dose on Mon05/03/25 at 1300, For 99 days * 1343 (Given - Provider: Trudy Collado, RN) * 2132 (Given - Provider: Marcos Avalos, BRYCE) * 1000 (Given - Provider: Trudy Collado, RN) Medication Order/ acetaminophen (Tylenol) tablet 650 mg 650 mg, oral, Every 6 hours PRN, mild pain (1-3 pain score), headaches, fever greater than or equalto 38 degrees Celsius, (1-3), Starting on Mon05/01/25 at 2004, For 99 days dextrose 50 [...] Intraprocedure * 1137 (Given - Provider: Ginny Duff RN) midodrine (Proamatine) tablet 5 mg 5 mg, oral, As needed, as needed for orthostatic hypotension, Starting on Mon05/01/25 at 2107, For99 days sennosides-docusate sodium (Andree-Colace) 8.6-50 mg per tablet 1 tablet 1 tablet, oral, 2 times daily PRN, constipation, Starting on Corina 05/01/25 at 2004, For 99 days sodium chloride 0.9 % infusion (COMPLETED) Continuous PRN, Starting on Mon05/02/25 at 1107, Intraprocedure * 1107 (New Bag - Provider: Ginny Duff RN) Order Group 1: insulin lispro (HumaLOG) injection [...] Date John Perdomo DO [address] [place] [address] PCP - [id number]/22documented as of this encounter
--- OUTSIDE RECORDS SUMMARY | 2025-05-12 08:57 | XMS_ITS | Encounter Summary ---
Author Organization [facility] Address [address] [place] [address] Care Team Providers Care Metal Miner Blasting Name Role Phone John Perdomo DO Primary Care Provider [phone] Encounter Details DateTypeDepartmentCare Team (Latest Contact Info)Mbyxprrrzpa46/27/2025Telephone [facility] [address] [place] [address] Michelle Dias MA Social History Tobacco UseTypesPacks/DayYears UsedDateSmoking Tobacco: NeverSmokeless Tobacco: NeverAlcohol UseStandard Drinks/WeekCommentsNot Currently0 (1 standard drink = 0.6 oz pure alcohol)[place] Safety & EnvironmentAnswerDate RecordedFear of Current or Ex-PartnerNot on file08/24/2023Emotionally AbusedNot on file08/24/2023hysically AbusedNot on file08/24/2023Sexually AbusedNot on file08/24/2023hysically or Sexually AbusedNot on file08/24/2023CommentsUnknownSex and Gender InformationValueDate RecordedSex Assigned at DdbixEjvjyh66/17/2022 6:11 PM EST Legal TduFouqof99/30/2022 12:22 AM EDTGender DhaffbywRhhjdn97/17/2022 6:11 PM ESTSexual OrientationHeterosexual or Pvmmawik85/17/2022 6:11 PM ESTdocumented as of this encounter Miscellaneous Notes * Telephone Encounter - Michelle Dias MA - 04/28/2025 4:35 PM EDT Ward back from Dr. Jenkins's office and he is ok with change in Bumex dose per Dalia To. Patientmade aware via message in Cellfire. * Telephone Encounter - Michelle Dias MA [...] Plan of Treatment DateTypeDepartmentCare Team (Latest Contact Info)Eeppaporhfw94/18/2025 10:00 AM ESTFollow-[facility] [address] [place] [address] Emilia To CNP [address] [place] [address] documented as of this encounter Visit Diagnoses Not on filedocumented in this encounter Care Teams Team MemberRelationshipSpecialtyStart DateEnd Date John Perdomo DO [address] [place] [address] PCP - Lmgaejt84/8/22documented as of this encounter
--- OUTSIDE RECORDS SUMMARY | 2025-05-12 08:57 | XMS_ITS | Clinical Summary ---
Author Organization [facility] Address [address] [facility] [place] [address] Care Team Providers Care Slope Runner Name Role Phone John Perdomo MD Unavailable [phone] Unallocated, Noms Provider MD Primary Care Provi kortney Allergies Active AllergyReactionsCriticalityNoted DateCommentsErythromycinAnaphylaxis, Other,EuspnpfSjfp50/08/2022Erythromycin CfrzBbmxdkskjczOnjr91/08/2022 LorlwueqxxzmvNxnuq91/08/2022enicillin GRezva3705/08/2023enicillinsHives 05/10/20222140FixjvsenyurqkiIgwsGua61/04/2024 Medications MedicationSigDispense QuantityRefillsLast FilledStart DateEnd DateStatus potassium [...] other day.Active ergocalciferol (Vitamin D-2) 1.25 MG (47720 UT) capsule Take 1 capsule by mouth [...] 109506Active Active Problems ProblemNoted DateDiagnosed DateNontoxic multinodular ujoucp6109/27/2023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 type1 diabetes /06/2023orneal scar, right eye05/08/2023ry eyes 05/08/2023rimary open angle glaucoma (POAG) of both eyes, mild stage05/08/2023 Encounters DateTypeDepartmentCare AqmlMjywvvyqbkl55/21/2025Refill [facility] [address] [place] [address] Jonhathon Yanez, Primary open angle glaucoma (POAG) of [...] CommentsUnknownSex and Gender InformationValueDate RecordedSex Assigned at Kjlhoy6105/01/2023 9:06 AM EDTLegal RrnBxryuy19/01/2023 8:34 PM EDTGender Identity Eicklz5005/01/2023 9:06 AM EDTSexual OrientationNot on file Last Filed Vital Signs Vital SignReadingTime TakenCommentsBlood Nrsadcxe277/52009/27/2023 11:29 AM EDT Pulse--Temperature--Respiratory Rate--Oxygen Saturation--Inhaled Oxygen Concentration--Oepspr54.9 kg (132 lb)09/27/2023 11:29 AM SHJGxinkb740.2 cm (4' 8 )09/27/2023 11:29 AM EDTBody Mass Index29.59009/27/2023 11:29 AM EDT Plan of Treatment DateTypeDepartmentCare Team (Latest Contact Info)Zfptjgbelke04/02/2025 1:15 PM ESTOffice Visit [facility] [address] [place] [address] Johnathon Yanez DO [address] [place] [address] Health MaintenanceDue DateLast DoneCommentsCT Njfzcpnjvxpj1951olonoscopy 1951olorectal Cancer Vwccnntqe1951FIT-DNA1951FIT1950 FOBT1951Medicare Annual Wellness (AWV)04/23/19511292Aigbsvhezldvq1950 Diabetes: Urine Protein Ncwmigyhr73/22/1970Pneumococcal Vaccine: 65+ Years (1 of 2 - PCV)04/23/19701856Gcbivgfrl24/22/1991Diabetes: Hemoglobin A1C10/08/2020 07/10/2020OVID-19 Vaccine ( - season)2025Influenza Vaccine (#1) 2025Diabetes: Retinopathy Okzjlfkfs42/27/47619111/26/2024, 11/26/2024, 11/26/2024, Additional history exists Insurance * Guarantor: Claudia Polo EAccount TypeRelation to PatientDate of BirthPhone Billing AddressPersonal/DgatuwDmdp1950 [address] [place] [address] Care Teams Team MemberRelationshipSpecialtyStart DateEnd Date Unallocated, Noms MD Marcelo [address] [place] [address] PCP - GeneralFamily Medicine08/18/23 John Perdomo MD [address] [place] [address] Referring PhysicianOrthopaedic Evebgnp08/6/23
--- OUTSIDE RECORDS SUMMARY | 2025-05-12 08:57 | XMS_ITS | Encounter Summary ---
Author Organization [facility] Address [address] [facility] [place] [address] Care Team Providers Care Correctional Food Service Supervisor Name Role Phone John Galindo MD Unavailable [phone] Unallocated, Noms Provider Primary Care Provi kortney Encounter Details DateTypeDepartmentCare Team (Latest Contact Info)Yogkhtgmvdi93/09/2024Clinisync Result Encounter [facility] Department Unsolicited Anahi Stanford MD [address] [facility] [address] [place] [address] Social History Tobacco UseTypesPacks/DayYears UsedDateSmoking Tobacco: NeverComments UnknownSex and Gender InformationValueDate RecordedSex Assigned at BirthFemale 05/01/2023 9:06 AM EDTLegal DaqEvnpcz44/01/2023 8:34 PM EDTGender IdentityFemale 05/01/2023 9:06 AM EDTSexual OrientationNot on filedocumented as of this encounter Plan of Treatment DateTypeDepartmentCare Team (Latest Contact Info)Yirotsknpiy00/02/2025 1:15 PM ESTOffice Visit [facility] [address] [place] [address] Johnathon Yanez DO [address] [place] [address] documented as of this encounter Procedures Procedure NamePriorityDate/TimeAssociated DiagnosisCommentsUS RTIUMPV2709/09/2023 4:18 AM EST documented in this encounter Results * US thyroid (09/09/2023 4:18 AM EST)Anatomical RegionLateralityModalityHead, NeckUltrasoundSpecimen (Source)Anatomical Location / LateralityCollection Method / VolumeCollection TimeReceived Time09/09/2023 4:18 AM EST Narrative 09/09/2023 4:20 AM EST [facility] ?[address] ? [place] [address] ? Ultrasound Report ? Signed ? Patient: CLAUDIA POLO E ?MR#: [id number] ?? : 1950 ?Acct:[id number] ?? Age/Sex: 73 / F ?ADM Date: 09/06/23 ?? Loc: US ? Attending Dr: Anahi Stanford M.D. ? Ordering Physician: Anahi Stanford M.D. ?? Date of Service: 09/06/23 ?? Procedure(s): US thyroid ?? Accession Number(s): [id number] ? cc: JOHN GALINDO D.O.; Anahi Stanford M.D. ? [facility] ? [address] [place] [address] ? [place] [address] ? Patient Name: ?? CLAUDIA POLO ? MRN: [facility]:[id number] ? date: 1950 ?Sex: F ?? Assigned Patient Location: US ?? Current Patient Location: US ?? Accession/Order Number: [id number] ?? Exam Date: 09/06/2023 ??15:00 ?Report Date: [...] 0420 ? DD/ 0418 ? TD/TT: ? Management Instructor: Procedure Note Radiology, Radiologist, MD - 09/09/2023 [place] [address] Ultrasound Report Signed Patient: CLAUDIA POLO EMR#: [id number] : 1950cct:[id number] Age/Sex: 73 / FADM Date: 09/06/23 Loc: US Attending Dr: Anahi Stanford M.D. Ordering Physician: Anahi Stanford M.D. Date of Service: 09/06/23 Procedure(s): US thyroid Accession Number(s): [id number] cc: JOHN GALINDO D.O.; Anahi Stanford M.D. The [address] [address] Patient Name: CLAUDIA POLO MRN: [id number] date: 1950 Sex: F Assigned Patient Location: US Current Patient Location: US Accession/Order Number: [id number] Exam Date: 09/06/2023 15:00 Report Date: 09/09/2023 [...] M.D. Signed By:09/09/23 0420 DD/ 0418 TD/TT: Management Instructor: Authorizing ProviderResult TypeResult StatusHilayoko Stanford MDIMRafita US PROCEDURES Final Result documented in this encounter Visit Diagnoses Not on filedocumented in this encounter Care Teams Team MemberRelationshipSpecialtyStart DateEnd Date Unallocated, Noms Provider, [place] [address] PCP - GeneralFamily Medicine08/18/23 John Galindo MD [address] [place] [address] Referring PhysicianOrthopaedic Nerslto50/6/23documented as of this encounter
--- OUTSIDE RECORDS SUMMARY | 2025-05-12 08:58 | XMS_ITS | Encounter Summary ---
Author Organization [facility] Address [address] [place] [address] Care Team Providers Care Medical Record Coder Name Role Phone John Perdomo DO Primary Care Provider [phone] Encounter Details DateTypeDepartmentCare Team (Latest Contact Info)Aovprmeuplq74/05/2025Telephone [facility] Heart at [facility] [address] [place] [address] Julita Scherer MA Social History Tobacco UseTypesPacks/DayYears UsedDateSmoking Tobacco: NeverSmokeless Tobacco: NeverAlcohol UseStandard Drinks/WeekCommentsNot Currently0 (1 standard drink = 0.6 oz pure alcohol)[facility] UtilitiesAnswerDate RecordedIn the past 12 [...] were you homeless or living in a nursing home (including now)? No05/01/2025Hunger Vital SignAnswerDate RecordedWithin the past 12 months, you worried that your food would run out before you got the money to buymore.Never true05/01/2025Ran Out of Food in the Last YearNot on file05/01/2025 CommentsUnknownSex and Gender InformationValueDate RecordedSex Assigned at Mwaqim8505/19/2022 6:11 PM ESTLegal AqlHcgnum04/30/2022 12:22 AM EDTGender PqlmqdhaRpzbeo04/17/2022 6:11 PM ESTSexual OrientationHeterosexual or Straight 05/19/2022 6:11 PM ESTdocumented as of this encounter Miscellaneous Notes * Telephone Encounter - Michelle Dias MA - 05/07/2025 4:03 PM EST Called patient to make her aware there are no DVT in either leg per LE venous ultrasound. * Telephone Encounter - Julita Scherer MA - 05/07/2025 1:20 PM EST Afua azevedo took care of this, pt having an us of both legs and going to watch for increased swelling/sob/weight gain documented in this encounter Plan of Treatment DateTypeDepartmentCare Team (Latest Contact Info)Lpxaiwtlsjt75/18/2025 10:00 AM ESTFollow-Up [facility] Heart at [facility] [address] [place] [address] Emilia To, RAWHIDE TRIMMER [address] [place] [address] documented as of this encounter Visit Diagnoses Not on filedocumented in this encounter Care Teams Team MemberRelationshipSpecialtyStart DateEnd Date John Perdomo DO [address] [place] [address] PCP - Jtdelym80/8/22documented as of this encounter
--- OUTSIDE RECORDS SUMMARY | 2025-05-12 08:58 | XMS_ITS | Encounter Summary ---
Author Organization [facility] Address [address] [place] [address] Care Team Providers Care Training Analyst Name Role Phone John Perdomo Primary Care Provider [phone] Encounter Details DateTypeDepartmentCare Team (Latest Contact Info)Hnuneammwmc71/30/2025Travel Social History Tobacco UseTypesPacks/DayYears UsedDateSmoking Tobacco: NeverSmokeless Tobacco: NeverAlcohol UseStandard Drinks/WeekCommentsNot Currently0 (1 standard drink = 0.6 oz pure alcohol)[facility] UtilitiesAnswerDate RecordedIn the past 12 months [...] CommentsUnknownSex and Gender InformationValueDate RecordedSex Assigned at Puhusx2005/19/2022 6:11 PM ESTLegal ExzNrrazu42/30/2022 12:22 AM EDTGender MrtrxeioZqnmwd36/17/2022 6:11 PM ESTSexual OrientationHeterosexual or Straight 05/19/2022 6:11 PM ESTdocumented as of this encounter Functional Status * QuestionAnswerDate of AssessmentAuthorHeart Rate RrgntpPowytnj89/30/2025 6:01 PM Jhoana Sims RNPatient JlbykphyDzmajzz28/30/2025 6:01 PM Jhoana Sims RN * QuestionAnswerDate of RzouyxbyfsPysztfXJ205/5205/01/2025 11:32 PM Benja Mar RNPulse7205/01/2025 11:32 PM Benja Mar RN * Pina Fall RiskQuestionAnswerDate of AssessmentAuthorHistory of Falling, Immediate or Within 3 Gsdvkc586/30/2025 6:50 PM Jhoana Sims RNSecondary Bpyzzpssm5111/30/2025 6:50 PM Jhoana Sims RNAmbulatory Xdl434 6:50 PM Jhoana Sims RNIntravenous Therapy/Heparin Dhfy9113 6:50 PM Jhoana Sims RNGait/Pmtnaoyxoupk158/30/2025 6:50 PM Jhoana Sims RNMental Yirjhd410/30/2025 6:50 PM Jhoana Sims RNMorse Fall Risk Score35 05/01/2025 6:50 PM Jhoana Sims, RN * Phill ScaleQuestionAnswerDate of AssessmentAuthorBraden No Risk Interventions Continue to assess patient according to level of care05/01/2025 8:23 PM EDT Benja Degroot, RNSensory Jjczqnktclh183/30/2025 8:23 PM EDTCragenaro, Benja, ITTbcidxgb711/30/2025 8:23 PM EDTCrable, Benja, GEZrpcgwzg497/30/2025 8:23 PM EDTCrable, Benja, DMVcilmhid995/30/2025 8:23 PM EDTCragenaro, Benja, RN Djezsfldl278/30/2025 8:23 PM EDTCrable, Benja, RNFriction and Shear3 05/01/2025 8:23 PM EDTCBenja robins RNBraden Scale Kmwsu0581/30/2025 8:23 PM EDBenja Justin RN * Bolton Fall Risk InterventionsQuestionAnswerDate of AssessmentAuthor Bolton Fall Risk QfhmhbhfjgtnhDisoavmx99/30/2025 6:50 PM Jhoana Sims RN * Pain Assessment TimerQuestionAnswerDate of AssessmentAuthorRestart Pain Assessment CetrfEiv53/30/2025 8:23 PM Benja Mar RN * Sepsis Model ScoresQuestionAnswerDate of AssessmentAuthorEarly Detection of Sepsis Score2.011 11:46 PM EDTChronicles, BatchqEarly Detection of Sepsis Score0.710 11:46 PM EDTChronicles, Batchq * Pain AssessmentQuestionAnswerDate of AssessmentAuthorPain Interventions Tohzneee64/30/2025 8:23 PM Benja Mar RNPatient's Stated Pain GoalNo pain05/01/2025 8:23 PM Benja Mar RNPain AssessmentNo/denies pain 05/01/2025 8:23 PM Benja Mar RN * Deterioration Index ScoreQuestionAnswerDate of AssessmentAuthorDeterioration Index Score27.031 11:46 PM Marion Ortiz * Head, Ears, Eyes, Nose, and Throat (HEENT)QuestionAnswerDate of Assessment AuthorHead, Ears, Eyes, Nose, and Throat (WDL)X1 8:23 PM Benja Mar RNR EyeMildly impaired vision;Corrective smtnpo9705/01/2025 8:23 PM EDT Benja Degroot RNL EyeMildly impaired vision;Corrective navjjb2305/01/2025 8:23 PM Bejna Mar RNMucous Membrane(s)Moist;Lasara;Pgevpv4505/01/2025 8:23 PM Benja Mar RNTeethIntact05/01/2025 6:01 PM [...] 6:50 PM Jhoana Sims RNShort Portable Mental Dclpv568 6:50 PM Jhoana Sims RN * Fall [...] PM Jhoana Sims RNProvider notified of new lbjzpTl5505/01/2025 6:01 PM Jhoana Sims RN * Vital SignsQuestionAnswerDate of UcqxzjzxjhCwmingYeiy18.81 6:01 PM Jhoana Sims RNTemp tjoYrayhtyp90/30/2025 6:01 PM Jhoana Sims RN Heart Rate MhqkceIiqwxyr15/30/2025 6:01 PM Jhoana Sims RNBP Location Right arm05/01/2025 6:01 PM Jhoana Sims RNBP CwktcvMvcswnsra19/30/2025 6:01 PM Jhoana Sims, RNPatient YtprzhcjKarjjud05/30/2025 6:01 PM EDT Jhoana Carmona, BRYCE * QuestionAnswerDate of AuxsvogqfwGvxxraFrO52273/30/2025 11:32 PM EDTCBenja robins RN * QuestionAnswerDate of ElqxslsavnDcihoyQE551/5205/01/2025 11:32 PM EDTCrableBenja XPGpriq2171/30/2025 11:32 PM EDTCraBenja lam RNResp231 11:32 PM EDTCraBenja lam RNPulse rate from Plethysmogram (bpm)7305/01/2025 11:32 PM Benja Mar RN * QuestionAnswerDate of AssessmentAuthorSwallowAble to swallow solids and liquids without duoqzbrcif36/30/2025 8:23 PM EDTCBenja robins RN * QuestionAnswerDate of AssessmentAuthorBilateral Breath SoundsDiminished 05/01/2025 8:23 PM EDTCBenja robins RNRespiratory AhtltlyQcildc62/30/2025 8:23 PM EDTCBenja robins RNChest AssessmentChest expansion symmetrical 05/01/2025 8:23 PM EDTCraBenja lma RNRespiratory InayvqYxtqxhmmg82/30/2025 8:23 PM EDTCraBenja lma RNRespiratory Depth/AbqtpfXlavzml29/30/2025 8:23 PM EDTCraBenja lam RNDyspnea OccurrenceWith ivwrakkc22/30/2025 8:23 PM EDT Benja Degroot RN * QuestionAnswerDate of AssessmentAuthorCardiac YjcwebPVW75/30/2025 8:23 PM EDT Benja Degroot RNEctopy YipflvlrdCmpsqrzuxk57/30/2025 6:01 PM Jhoana Sims RNCardiac FnyrttzgtwXmbmtos05/30/2025 8:23 PM Benja Mar RN Health Safety And Environment Manager RpaochJd99/30/2025 8:23 PM Benja Mar RNTelemetry Box Xmtwxyie769323/30/2025 6:01 PM Jhoana Sims RNJugular Venous Distention (JVD)No05/01/2025 8:23 PM EDBenja Justin RNCardiac Symptoms None05/01/2025 8:23 PM EDTCBenja robins RNHeart SoundsS1, S205/01/2025 8:23 PM EDTCraBenja lam RN * GastrointestinalQuestionAnswerDate of AssessmentAuthorGastrointestinal (WDL) WDL1 8:23 PM Benja Mar RN * Peripheral VascularQuestionAnswerDate of AssessmentAuthorPeripheral Vascular (WDL)X1 8:23 PM EDBenja Justin RNCapillary RefillLess than/equal to 2 seconds (All extremities)05/01/2025 8:23 PM EDTCBenja robins RNPulses Right radial;Left radial;Right pedal;Left pedal1 8:23 PM EDBenja Justin RNCyanosisNone1 8:23 PM EDBenja Justin RNEdemaRight lower extremity;Left lower ztivojrxo35/30/2025 6:01 PM Jhoana Sims RN Peripheral Vascular Additional AssessmentsRight lower extremity;Left lower lhvfeivuc58/30/2025 6:01 PM Jhoana Sims RN * RUE Neurovascular AssessmentQuestionAnswerDate of AssessmentAuthorRight Radial Pulse+ 8:23 PM Benja Mar RN * LUE Neurovascular AssessmentQuestionAnswerDate of AssessmentAuthorLeft Radial Pulse+ 8:23 PM Benja Mar RN * RLE Neurovascular AssessmentQuestionAnswerDate of AssessmentAuthorRLE Edema+1 05/01/2025 8:23 PM EDBenja Justin RNRLE Capillary RefillLess than/equal to 2 vukqcxr68/ 8:23 PM EDTCrable, NAVEEN Yousif ColorAppropriate for htiqqxzdc66/30/2025 8:23 PM EDTCrable, Benja RNRRUBI Temperature/Moisture Warm;Dry05/01/2025 8:23 PM EDTCrable, Benja, RNRight Posterior Tibial Pulse + 6:01 PM EDTSJhoana ramirez, RN Pedal Pulse+ 8:23 PM EDTCraBenja lam RN * LLE Neurovascular AssessmentQuestionAnswerDate of AssessmentAuthorLLE Edema+1 05/01/2025 8:23 PM EDTCrableBenja RNLLE Capillary RefillLess than/equal to 2 gszpbez0405/01/2025 8:23 PM EDTCrable, BANDAR YousifE ColorAppropriate for qoflxhtpg65/30/2025 8:23 PM EDTCrableBenja RNLLE Temperature/Moisture Warm;Dry05/01/2025 8:23 PM EDTCrableBenja RNLeft Posterior Tibial Pulse+1 05/01/2025 6:01 PM EDJhoana Robertson RNRubift Pedal Pulse+ 8:23 PM EDTCBenja robins RN * MusculoskeletalQuestionAnswerDate of AssessmentAuthorMusculoskeletal (WDL)WDL 05/01/2025 8:23 PM EDTCBenja robins RN * PsychosocialQuestionAnswerDate of AssessmentAuthorPsychosocial (WDL)WDL 05/01/2025 8:23 PM EDTCBenja robins RN * Pina Fall RiskQuestionAnswerDate of AssessmentAuthorHistory of Falling, Immediate or Within 3 Pdzlsw552 6:50 PM Jhoana Sims RNSecondary Ilozhdxcu0195/30/2025 6:50 PM Jhoana Sims, RNAmbulatory Gcj470 6:50 PM Jhoana Sims RNIntravenous Therapy/Heparin Dazl9283 6:50 PM Jhoana Sims RNGait/Vfvmfdlxucbv300/30/2025 6:50 PM Jhoana Sims RNMental Lwhctk220/30/2025 6:50 PM Jhoana Sims RNMorse Fall Risk Score35 05/01/2025 6:50 PM Jhoana Sims RN * Phill ScaleQuestionAnswerDate of AssessmentAuthorBraden No Risk Interventions Continue to assess patient according to level of care05/01/2025 8:23 PM EDT Benja Degroot, RNSensory Gxyeletfmhr356/30/2025 8:23 PM EDTCBenja robins CWCamitrux008/30/2025 8:23 PM EDTCBenja robins, RHLwmrugcy017/30/2025 8:23 PM EDTCBenja robins PWJymlvyvx771/30/2025 8:23 PM EDTCBenja robins RN Kvimldkph286/30/2025 8:23 PM EDTCjulienne, Benja, RNFriction and Shear3 05/01/2025 8:23 PM EDTCBenja robins RNBraden Scale Jehie3882/30/2025 8:23 PM Benja Mar RN * Charting TypeQuestionAnswerDate of AssessmentAuthorCharting TypeShift ndfwanvhvd06/30/2025 8:23 PM Benja Mar RN * Values/BeliefsQuestionAnswerDate of AssessmentAuthorCultural Requests During Mgzrhbnwooqaatforzi51/30/2025 6:51 PM Ana Davies RNSpiritual Requests During Jlnxytchrgqkzdbpjgp88/30/2025 6:51 PM Ana Davies RN * GenitourinaryQuestionAnswerDate of AssessmentAuthorGenitourinary (WDL)WDL 05/01/2025 8:23 PM Benja Mar RN * Patient MonitoringQuestionAnswerDate of AssessmentAuthorFrequency of Checks Twice per hour, obopbkus88/30/2025 6:50 PM Jhoana Sims RN * Safe EnvironmentQuestionAnswerDate of AssessmentAuthorChair AlarmsOff 05/01/2025 6:50 PM Jhoana Sims RNArm Bands OnID05/01/2025 6:50 PM Jhoana Del Castillo RNSide Rails/Bed Safety2/ 6:50 PM Jhoana Sims RNBed DymzhkVze45/30/2025 6:50 PM Jhoana Sims RNThe Patient's Environment is HukwQck28/30/2025 6:50 PM Jhoana Sims RN * MobilityQuestionAnswerDate of JcojhexotmIavmusPcgvszkuxq34/30/2025 6:50 PM Jhoana Del Castillo RNActivity PerformedAmbulated in room05/01/2025 6:50 PM Jhoana Del Castillo RNRepositionedTurns self05/01/2025 6:50 PM Jhoana Sims RN Level of RkbifcwmsxEnlcvebwdsv55/30/2025 6:50 PM Jhoana Sims RNHead of Bed ElevatedSelf qwpsoajsr10/30/2025 6:50 PM Jhoana Sims RNHeels/Feet Foot of bed elevated;Heels elevated off bed05/01/2025 6:50 PM Jhoana Sims RNRange of MotionActive;All mhjspsxecpb79/30/2025 6:50 PM Jhoana Sims RNAnti-Embolism DevicesBilateral;Sequential compression devices, below knee05/01/2025 6:50 PM Jhoana Sims RNAnti-Embolism InterventionOff 05/01/2025 6:50 PM Jhoana Sims RNPatient's mobility zoneZone 6:50 PM Jhoana Sims RNPositioning FrequencyAble to turn self05/01/2025 6:50 PM Jhoana Sims RN * HygieneQuestionAnswerDate of AssessmentAuthorHygieneBathed;Per self05/01/2025 11:00 PM Diya Moore, NA * PrecautionsQuestionAnswerDate of CvlnedkiclBpwhbuCoainocttoaEamz53/30/2025 6:50 PM Jhoana Sims RN * Family/Significant Other CommunicationQuestionAnswerDate of AssessmentAuthor Family/Significant Other YqfjrpDojpiilr72/30/2025 6:50 PM Jhoana Sims RN * Comfort and Environment InterventionsQuestionAnswerDate of AssessmentAuthor ComfortRepositioned;Gown bvroagx4805/01/2025 6:50 PM Jhoana Sims RN * Safety Equipment at BedsideQuestionAnswerDate of AssessmentAuthorSafety Equipment at PiknnnjLwbw02/30/2025 6:50 PM Jhoana Sims RN * ADL ScreeningQuestionAnswerDate of AssessmentAuthorDo you snore or wake up gasping for air?No05/01/2025 6:50 PM Ana Davies RNCan you bring in your CPAP/BiPAP from home?N/A1 6:50 PM Ana Davies RNPatient's Vision Adequate to Safely Complete Daily MiboxvcfolDso74/30/2025 6:50 PM Ana Davies RNPatient's Judgment Adequate to Safely Complete Daily ActivitiesYes 05/01/2025 6:50 PM Ana Davies RNPatient's Memory Adequate to Safely Complete Daily UfhyjacojmVxh98/30/2025 6:50 PM Ana Davies RNPatient Able to Express Needs/CppytswUbp31/30/2025 6:50 PM Ana Davies RNDressing Acnrqqzarxh16/30/2025 6:50 PM Ana Davies RNJHNrmotyziGqznypuldub20/30/2025 6:50 PM Ana Davies METyosnrcFctvtwhjtqp50/30/2025 6:50 PM Ana Davies RNBRWwfffvmJbpdcbyiwcn19/30/2025 6:50 PM Ana Davies RNToiletingIndependent 05/01/2025 6:50 PM Ana Davies RNIn/Out LjzZvzyoqaociv38/30/2025 6:50 PM Ana Davies RNWalks in XnhkCtfejrqonty66/30/2025 6:50 PM Ana Davies RNWeakness of FneqQzhe85/30/2025 6:50 PM Ana Davies RNWeakness of Arms/CpmlkJxfw10/30/2025 6:50 PM Ana Davies RNHearing - Right Ear Qidnmkvrgk10/30/2025 6:50 PM Ana Davies RNHearing - Left [...] 05/01/2025 6:50 PM Ana Davies RNOT Evaluation Ogfqjo425 6:50 PM Ana Davies RNSLP Evaluation Qeuqni096 6:50 PM Ana Davies, BRYCE * Assistive DevicesQuestionAnswerDate of AssessmentAuthorAssistive Devices Szmgcdazdk80/30/2025 6:50 PM Ana Davies RN * Bolton Fall Risk InterventionsQuestionAnswerDate of AssessmentAuthor Bolton Fall Risk JzarvbkeljwioXwaemeiv52/30/2025 6:50 PM Jhoana Sims RN * Suicidal IdeationQuestionAnswerDate of AssessmentAuthor1. Wish to be (Lifetime)No05/01/2025 6:51 PM Ana Davies RN2. Non-Specific Active Suicidal Thoughts (Lifetime)No05/01/2025 6:51 PM Ana Davies RN * Pain AssessmentQuestionAnswerDate of AssessmentAuthorPain Interventions Ytqzxamf67/30/2025 8:23 PM Benja Mar RNPatient's Stated Pain GoalNo pain05/01/2025 8:23 PM Benja Mar RNPain AssessmentNo/denies pain 05/01/2025 8:23 PM Benja Mar RN * NutritionQuestionAnswerDate of AssessmentAuthorDiet TypeHeart healthy 05/01/2025 6:50 PM Jhoana Sims RNFeedingAble to feed self05/01/2025 6:50 PM Jhoana Sims, BRYCE * Respiratory InterventionsQuestionAnswerDate of AssessmentAuthorRespiratory Interventions PerformedCough and deep bvpavif88/30/2025 6:01 PM Jhoana Sims RN * Cough and Deep BreatheQuestionAnswerDate of AssessmentAuthorCough and Deep QobywlsYil94/30/2025 8:23 PM Benja Mar RN * IntegumentaryQuestionAnswerDate of AssessmentAuthorIntegumentary (WDL)WDL 05/01/2025 8:23 PM Benja Mar RN * Patient Strengths/Problem AreasQuestionAnswerDate of AssessmentAuthorStrengths (Must Choose Two)Communication Skills;Supportive Cfdofk4405/01/2025 6:51 PM Ana Chang RNProblem AreasHealth Problems;Physical Fqdaos0205/01/2025 6:51 PM Ana Davies RN * Environment [...] Damon RN * Weight Loss ScoreAnswerDate of WybkjhcsjsKfxwlv332/30/2025 7:45 PM Li Damon RN * Malnutrition ScoreAnswerDate of AgcrwptvbdKiwjml453/30/2025 7:45 PM Li Damon RN documented as of this encounter Plan of Treatment DateTypeDepartmentCare Team (Latest Contact Info)Frysfnitfpp06/18/2025 10:00 AM ESTFollow-[facility] [address] [place] [address] Emilia To, POWDER LINE REPAIRER [address] [place] [address] documented as of this encounter Visit Diagnoses Not on filedocumented in this encounter Care Teams Team MemberRelationshipSpecialtyStart DateEnd Date John Perdomo DO [address] [place] [address] PCP - Xbvuypo98/8/22documented as of this encounter
--- OUTSIDE RECORDS SUMMARY | 2025-05-12 08:58 | XMS_ITS | Encounter Summary ---
Author Organization [facility] Address [address] [place] [address] Care Team Providers Care Bath Design Sales Consultant Name Role Phone John Perdomo DO Primary Care Provider [phone] Reason for Visit * ReasonOnset DateCommentsHF post discharge call and inpatient survey sent. 05/05/2025 Encounter Details DateTypeDepartmentCare Team (Latest Contact Info)Jhxqkyjohfg80/03/2025Telephone [facility] Vascular Lab [address] [place] [id number] Roxana Stark RN HF post discharge call and inpatient survey sent. Social History Tobacco UseTypesPacks/DayYears UsedDateSmoking Tobacco: NeverSmokeless Tobacco: NeverAlcohol UseStandard Drinks/WeekCommentsNot Currently0 (1 standard drink = 0.6 oz pure alcohol)[facility] UtilitiesAnswerDate RecordedIn the past 12 months has the [employer], gas, oil, or water [employer] threatened to shut off services in your [...] were you homeless or living in a care home (including now)? 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 Follow up appts reviewed with pt. Pt asked about cardiac rehab and mentioned she lives in [place]. Exceptional Children Teacher informed pt she can have the referral faxed to the cardiac rehab closer to her home. Patient is aware of her follow up appt with cardiology.[employer] Teacher offered to move her follow-up to a sooner date but pt declined. Pt agreed to call anything changes and she would like to be seen sooner. documented in this encounter Plan of Treatment DateTypeDepartmentCare Team (Latest Contact Info)Yiksqjzjqkn87/18/2025 10:00 AM ESTFollow-Up [facility] Heart at [facility] [address] [place] [address] Emilia To, CLAIMS VICE PRESIDENT [address] [place] [address] documented as of this encounter Visit Diagnoses Not on filedocumented in this encounter Care Teams Team MemberRelationshipSpecialtyStart DateEnd Date John Perdomo DO [address] [place] [address] PCP - Sfhegod49/8/22documented as of this encounter
--- OUTSIDE RECORDS SUMMARY | 2025-05-12 08:58 | XMS_ITS | Encounter Summary ---
Author Organization [facility] Address [address] [place] [address] Care Team Providers Care Photographer Finish Name Role Phone John Perdomo Primary Care Provider [phone] Reason for Visit * ReasonCommentsMed Refill Encounter Details DateTypeDepartmentCare Team (Latest Contact Info)Scaczxbjebj68/30/2025[address]ill [facility] [address] [place] [address] Bran Fish MD [address] [facility] [address] [facility] [place] [address] Essential (primary) hypertension Social History Tobacco UseTypesPacks/DayYears UsedDateSmoking Tobacco: NeverSmokeless Tobacco: NeverAlcohol UseStandard Drinks/WeekCommentsNot Currently0 (1 standard drink = 0.6 oz pure alcohol)[facility] UtilitiesAnswerDate RecordedIn the past 12 months has the Gravitant, gas, oil, or water [employer] threatened to shut off services in your [...] CommentsUnknownSex and Gender InformationValueDate RecordedSex Assigned at Odprcd7405/19/2022 6:11 PM ESTLegal QkbDdyiag27/30/2022 12:22 AM EDTGender NzhpnvefSgdcqr13/17/2022 6:11 PM ESTSexual OrientationHeterosexual or Straight 05/19/2022 6:11 PM ESTdocumented as of this encounter Plan of Treatment DateTypeDepartmentCare Team (Latest Contact Info)Odavhllxsnd36/18/2025 10:00 [address] [facility] [address] [place] [address] Emilia To, GOLD CHARMER [address] [place] [address] documented as of this encounter Visit Diagnoses Diagnosis Essential (primary) hypertension Unspecified essential hypertension documented in this encounter Care Teams Team MemberRelationshipSpecialtyStart DateEnd Date John Perdomo DO [address] [place] [address] PCP - Xlxblas88/8/22documented as of this encounter
--- OUTSIDE RECORDS SUMMARY | 2025-05-12 08:58 | XMS_ITS | Encounter Summary ---
Author Organization [facility] Address [address] [address] Care Team Providers Care Surface Mount Technology Operator Name Role Phone Hunter Perdomoel Primary Care Provider [phone] Reason for Referral * Imaging (Emergency) - Pending ReviewSpecialtyDiagnoses / ProceduresReferred By ContactReferred To ContactCardiology Diagnoses Swelling Procedures Vascular US lower extremity venous duplex bilateral Emilia To CNP [address] [place] [address] Phone: tel: fax: Referral IDStatusReasonStart DateExpiration DateVisits RequestedVisits [id number] Review Perform Procedure Encounter Details DateTypeDepartmentCare Team (Latest Contact Info)Cqftxlpomto90/05/2025Orders Only [facility] [address] [place] [address] Julita Scherer MA Swelling (Primary Dx) Social History Tobacco UseTypesPacks/DayYears UsedDateSmoking Tobacco: NeverSmokeless Tobacco: NeverAlcohol UseStandard Drinks/WeekCommentsNot Currently0 (1 standard drink = 0.6 oz pure alcohol)[facility] UtilitiesAnswerDate RecordedIn the past 12 months has [...] were you homeless or living in a assisted (including now)? No05/01/2025Hunger Vital SignAnswerDate RecordedWithin the past 12 months, you worried that your food would run out before you got the money to buymore.Never true05/01/2025Ran Out of Food in the Last YearNot on file05/01/2025 CommentsUnknownSex and Gender InformationValueDate RecordedSex Assigned at Ljxtqc8105/19/2022 6:11 PM ESTLegal OfbWhzjry17/30/2022 12:22 AM EDTGender KetzxpvpLwilld83/17/2022 6:11 PM ESTSexual OrientationHeterosexual or Straight 05/19/2022 6:11 PM ESTdocumented as of this encounter Plan of Treatment DateTypeDepartmentCare Team (Latest Contact Info)Ttprecjghyu51/18/2025 10:00 AM ESTFollow-Up [facility] [address] [place] [address] Emilia To, ASSEMBLER [employer] [address] [place] [phone] NameTypePriorityAssociated DiagnosesOrder ScheduleVascular US lower extremity venous duplex bilateralVascular UltrasoundSTAT Swelling Expected: 05/07/2025 (Approximate), Expires: 05/07/2027documented as of this encounter Visit Diagnoses Diagnosis Swelling- Primary Localized superficial swelling, mass, or lump documented in this encounter Care Teams Team MemberRelationshipSpecialtyStart DateEnd Date John Perdomo DO [address] [place] [address] PCP - Upugbbz09/8/22documented as of this encounter
--- OUTSIDE RECORDS SUMMARY | 2025-05-12 08:59 | XMS_ITS | Clinical Summary ---
Author Organization [facility] Address [address] [place] [address] Care Team Providers Care Control System Manager Name Role Phone Leanne John Primary Care Provider [phone] Allergies Active AllergyReactionsCriticalityNoted AkqgEwzospwkRaplpwunomsfIzftn97/08/2022 Erythromycin Base05/10/20224232Cckdemhvdtngv72/08/7970WxlsiwcsbyxDaicj39/08/2022 AtwaxkcryreibjOluiZhv36/04/2024 Medications MedicationSigDispense QuantityRefillsLast FilledStart DateEnd DateStatus allopurinol (Zyloprim) 100 mg tablet TAKE 1 TABLET BY MOUTH ONCE DAILY FOR 90 DAYSActive aspirin 81 mg EC tablet Take 1 tablet every day by oral route.Active ergocalciferol (Vitamin D-2) 1.25 MG (77888 UT) capsule Take 1 capsule by mouth [...] mg SL tablet Indications:Coronary artery disease of curyung artery of curyung heart with stable angina pectorisPlace 1 tablet (0.4 mg) under the tongue every 5 (five) minutes if needed for chest pain. 25 tablet ctive midodrine (Proamatine) 5 mg tablet Indications:Orthostatic hypotensionTake 1 tablet (5 mg) by mouth if needed (as needed for orthostatic hypotension). 90 tablet 312412/5Active isosorbide mononitrate ER (Imdur) 30 mg 24 hr tablet Indications:Coronary artery disease involving curyung coronary artery of curyung heart without angina pectorisTake 1 tablet (30 [...] for possible right heart cath Acute kidney sarxho2804/30/20258648Urvgupmzpbdkqq64/30/4512Bbpokacrdpsnz02/30/2024 Otyhfppfbrr59/30/2024Microscopic xifcaxegd14/30/2024Secondary ntyfessapzngztmtcaw71/30/2024Nontoxic multinodular nclfvy8809/27/2023Orthostatic smmkwajxkzi14/09/2024 Assessment & Plan (07/11/2023 12:15 PM EST): [...] to evaluate symptoms and response. Carmina Cruz STEAM HAND Division of Cardiology, [facility]- [phone] Pager- [phone] Email- [email or web address] Corneal scar, right eyery eyes/10/2023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 type1 diabetes hoccybwz39/rimary open angle glaucoma (POAG) of both eyes, mild stage/enign essential hypertension 06/02/2022 Assessment & Plan (07/20/2022 10:35 AM EST): Hypertension is 137/62 Continue meds as prescribed. Bumex, doxazosin, hydralazine Gqwkksup09/01/4338Sxlijs69/01/2022hronic diastolic heart fjdzqcg5205/11/2022 Overview (07/20/2022): Images from the original note [...] edema, dyspnea and weight gain noted. Calling communications department chair Dr garcia for recommendations - in light [...] and she voiced understanding of instructions. Coronary ctlxasassduoypzn68/19/2022 Assessment & Plan (02/24/2023 2:26 PM EDT): [...] stable, continue GDMT- ASA, lipitor and metoprolol Liquor Rectifier sent a note that he wants to add eyedrops- darzalamide/timolol to her regimen and to monitor for any side effects. Hypertensive kzvtampb31/19/2022 Assessment & Plan (05/02/2025 12:46 AM EDT): Resume home medications Assessment & Plan (02/24/2023 2:26 PM EDT): Hypertension is Well-controlled blood pressure 131/71 Continue all medications Follow-up with nephrology as scheduled Assessment & Plan (05/11/2022 3:19 PM EST): Currently stable- 136/59 Continue all medications Stage 4 chronic kidney hfuqlyc2407/21/2021 Assessment & Plan (05/02/2025 12:46 AM EDT): Monitor kidney functions Avoid nephrotoxic drugs Appreciate nephrology recommendations Assessment & Plan (05/11/2022 3:20 PM EST): We will discussed with Dr. Garcia regarding further recommendations regarding her diuresis Sent for labs today and chest x-ray Kidney kzqwvns9107/31/2020Heart klnhzv7208/13/2019Recurrent herpes nekatrd0508/13/2019 Type 2 diabetes uvewjeyq43/11/2020 Assessment & Plan (05/02/2025 12:46 AM EDT): Glucose management protocol Sliding scale Hypoglycemia management Encounters DateTypeDepartmentCare OfyfAuyslsekktj73/05/2025Orders Only [facility] [address] [place] [address] Julita Scherer MA Swelling (Primary Dx)05/07/2025Telephone [facility] [address] [place] [address] Julita Scherer MA 05/05/2025Telephone [facility] Heart critical access hospital [facility] Vascular Lab [address] [place] [address] Roxana Stark RN HF post discharge call and inpatient survey sent.05/02/2025 9:30 AM EDT - 05/02/2025 10:30 AM EDTSurgery [facility] Heart and Vascular Center Vascular Lab [address] [place] [phone] Rickey Jackson MD Right heart cath [12371 (CPT??) +1 more]05/01/2025 5:55 PM EDT - 05/04/2025 4:00 PM ESTHospital Encounter [facility] [address] [place] [address] Crispin Galeano MD Horen, Nicholas G., MD Chronic diastolic heart failure (CMS/HCC) (Primary Dx); Acute on chronic heart failure with preserved ejection fraction (HFpEF) (CMS/HCC); Coronary arteriosclerosis; Essential (primary) hypertension; Goiter Discharge Disposition: Home or Self Care (01)05/01/2025 1:20 PM EDTOffice Visit [place] [address] [facility] [place] [address] Emilia To CNP Acute on chronic diastolic congestive heart failure (CMS/HCC) (Primary Dx); Stage 4 chronic kidney disease (CMS/HCC); Essential (primary) hypertension; Coronary artery disease involving curyung coronary artery of curyung heart without angina pectoris; History of coronary artery bypass surgery; Primary ijvzjdvowvnp37/30/3783Bdudlr64/30/2025Refill [facility] [address] [facility] [place] [address] Bran Fish MD Essential (primary) wdncwcwjhfep47/27/2025Telephone [facility] [address] [facility] [place] [address] Michelle Dias MA 04/25/2025Orders Only [facility] [address] [facility] [place] [address] Michelle Dias MA Shortness of breath (Primary Dx)04/15/2025 2:20 PM EDTOffice Visit [facility] [address] [facility] [place] [address] Emilia To CNP Acute on chronic diastolic congestive heart failure (CMS/HCC) (Primary Dx); Essential (primary) hypertension; Coronary artery disease involving curyung coronary artery of curyung heart without angina pectoris; History of coronary artery bypass surgery; Stage 4 chronic kidney disease (CMS/HCC); Primary hypertension; Orthostatic pjornwsayux21/09/2025Orders Only [facility] [address] [facility] [place] [address] Drea Robertson MD 04/10/2025Telephone [facility] [address] [facility] [place] [address] Julita Scherer MA 04/07/2025 3:00 PM EDTOffice Visit [facility] [address] [facility] [place] [address] Bran Fish MD Acute on chronic diastolic congestive heart failure (CMS/HCC) (Primary Dx); Coronary artery disease involving curyung coronary artery of curyung heart without angina pectoris; Essential (primary) hypertension; History of coronary artery bypass surgery; Stage 4 chronic kidney disease (CMS/HCC)from Last 3 Months Immunizations ImmunizationAdministration DatesNext DueHep B, adult06/20/2000,03/07/2000, 12/01/1999 Family History Medical HistoryRelationNameCommentsHeart attackFatherHeart attackMotherHeart failureMotherRelationNameStatusCommentsFatherDeceasedMotherDeceased Social History Tobacco UseTypesPacks/DayYears UsedDateSmoking Tobacco: NeverSmokeless Tobacco: Never Tobacco Cessation:Counseling Given: Not Answered Alcohol UseStandard Drinks/WeekCommentsNot Currently0 (1 standard drink = 0.6 oz pure alcohol)[facility] UtilitiesAnswerDate RecordedIn the past 12 months has the [employer], gas, oil, or water [employer] threatened to shut off services in your [...] CommentsUnknownSex and Gender InformationValueDate RecordedSex Assigned at Buztyd2405/19/2022 6:11 PM ESTLegal NnyKvjvxt90/30/2022 12:22 AM EDTGender NazhduatBfregm96/17/2022 6:11 PM ESTSexual OrientationHeterosexual or Straight 05/19/2022 6:11 PM EST Last Filed Vital Signs Vital SignReadingTime TakenCommentsBlood Lrsrkbsk575/6705/04/2025 12:25 PM EST Fufuf212005/04/2025 12:25 PM KAVTvmkktkbhcn46 ??C (98.6 ??F)05/04/2025 12:25 PM ESTRespiratory Fuzk162607/04/2024 12:25 PM ESTOxygen Lfrumtjxyi06%05/04/2025 12:25 PM ESTInhaled Oxygen Concentration--Kymkxl52.6 kg (127 lb)05/04/2025 4:43 AM EST Pwdopx875.2 cm (4' 8 )05/01/2025 6:01 PM EDTBody Mass Index28.4705/01/2025 6:01 PM EDT Plan of Treatment DateTypeDepartmentCare Team (Latest Contact Info)Rmrnoioxarj89/18/2025 10:00 AM ESTFollow-Up [facility] [address] [place] [address] Emilia To, SENIOR ANALYSIS SPECIALIST [address] [place] [address] Health MaintenanceDue DateLast DoneCommentsCT Naeryduulkwx1951Colonoscopy 1951olorectal Cancer Xtfeuueub1951FIT-DNA1951FIT1950 FOBT1950Medicare Annual Wellness (AWV)04/23/19516860Ylvzksyikwkpd1950 Diabetes: Retinopathy Mvxmcbliu35/22/1961epression Fbinebhfj86/22/1963 Pneumococcal Vaccine: 50+ Years (1 of 2 - PCV)1970Adult Xbudywy4604/23/1973 Vwjbojqet67/22/1991Zoster Vaccines (1 of 2)2001Diabetes: Hemoglobin A1C /OVID-19 Vaccine ( - season)2025Influenza Vaccine (#1)2025Fall Risk Hsdexivfa96HIB VaccinesAged OutNo longer eligible based on patient's [...] Procedures Procedure NamePriorityDate/TimeAssociated DiagnosisCommentsPOCT GLUCOSE METER UNSOLICITED EAQNKFSTzlxkcv35/02/2025 11:23 AM EST BASIC METABOLIC PANELPending Pgsnqzdfx31/02/2025 8:02 AM EST CBCPending Spojgwsyz85/02/2025 8:02 AM EST POCT GLUCOSE METER UNSOLICITED MSIDBEJFbesgnw42/01/2025 8:12 PM EDT POCT GLUCOSE METER UNSOLICITED RACZTFYFypwsla05/01/2025 4:41 PM EDT URINALYSIS MICROSCOPICPending Oovjmveud46/01/2025 3:01 PM EDT URINALYSISPending Emkwfrtok50/01/2025 3:01 PM EDT CREATININE, URINE, RANDOMPending Nhagqzjfr05/01/2025 3:01 PM EDT PROTEIN, URINE, RANDOMPending Dauyhqnnq31/01/2025 3:01 PM EDT HOME O2 EVAL (DESATURATION SCREEN)Erhganr8005/03/2025 12:19 PM EDTPOCT GLUCOSE METER UNSOLICITED EUSFOQHOcanrvl23/01/2025 11:41 AM EDT POCT GLUCOSE METER UNSOLICITED VBFBCOTKsdhjcw27/01/2025 7:59 AM EDT PTH, INTACTAdd-On05/03/2025 7:15 AM EDT PHOSPHORUSAdd-On05/03/2025 7:15 AM EDT BASIC METABOLIC PANELPending Kmfmknuzq65/01/2025 7:15 AM EDT CBCPending Pcfyodaym19/01/2025 7:15 AM EDT POCT GLUCOSE METER UNSOLICITED OXJIORGRaipeey83/31/2025 8:10 PM EDT POCT GLUCOSE METER UNSOLICITED KGHIAZQEoqmipo73/31/2025 5:37 PM EDT XR CHEST 1 SMLEBwsyyft64/31/2025 2:14 PM EDT POCT GLUCOSE METER UNSOLICITED TOCCPBVMgzrcoj08/31/2025 12:18 PM EDT RIGHT HEART XWBBTgqjmnz32/31/2025 11:44 AM EDT Acute on chronic heart failure with preserved ejection fraction (HFpEF) ([facility]) %RFK5Enbjgvc26/31/2025 11:42 AM EDT ECG 12-IUXQPpyjhbd59/31/2025 9:14 AM EDT COMPLETE ECHO (TTE)Fzxtrrz3605/02/2025 8:30 AM EDT RETICULOCYTE PANELAdd-On05/02/2025 5:46 AM EDT IRON AND TIBCAdd-On05/02/2025 5:46 AM EDT FERRITINAdd-On05/02/2025 5:46 AM EDT VITAMIN B71Rat-Ou61/31/2025 5:46 AM EDT FOLATEAdd-On05/02/2025 5:46 AM EDT TSH3 REFLEX TO IW6Qrb-Ur44/31/2025 5:46 AM EDT CMKIjnhpkg61/31/2025 5:46 AM EDT BASIC METABOLIC PMFVBNsegjyz30/31/2025 5:46 AM EDT JDEJZRUTJYCOD47/31/2025 12:24 AM EDT B-TYPE NATRIURETIC ZCTNIDSDSBF65/31/2025 12:24 AM EDT BASIC METABOLIC WGMNICZYM61/31/2025 12:24 AM EDT YOEXOAD9905/02/2025 12:24 AM EDT BASIC METABOLIC QBBUOHzmwfmq43/09/2025 2:45 PM EDTHEMOGLOBIN S6QHxzlili 07/10/2020 7:09 PM EST from Last 3 Months or Most Recently Relevant to Health Maintenance Results * (ABNORMAL) POCT glucose meter (05/04/2025 11:23 AM EST) Only the most recent of8 resultswithin the time period is included. ComponentValueRef RangeTest MethodAnalysis TimePerformed AtPathologist Signature Glucose YLB310(H)70 - 105 mg/dL05/04/2025 11:35 AM [facility] ([facility] Comment:jarizmeSpecimen (Source)Anatomical Location / LateralityCollection Method / VolumeCollection TimeReceived TimeBloodCapillary blood specimen / Pnupdmq1505/04/2025 11:23 AM EST05/04/2025 11:35 AM EST Narrative [facility] ([facility] - 05/04/2025 11:35 AM EST Waived Testing in the ED is performed under the ED CLIA certificate #[id number]. Authorizing ProviderResult TypeResult StatusNicchelsea SNEED BLOOD ORDERABLESFinal ResultPerforming OrganizationAddressCity/State/ZIP CodePhone Number [facility] ([facility] [address] [place] [address] * (ABNORMAL) CBC (05/04/2025 8:02 AM EST) Only the most recent of4 resultswithin the time period is included. ComponentValueRef RangeTest MethodAnalysis TimePerformed AtPathologist Signature Auto WBC8.264.00 - 10.60 10*3/uL05/04/2025 8:28 AM [facility] ([facility] RBC2.89(L)3.80 - 5.00 10*6/uL05/04/2025 8:28 AM [facility] ([facility] Hemoglobin8.6(L)12.0 - 15.0 g/dL05/04/2025 8:28 AM [facility] ([facility] Wwumukyuxp49.0(L)36.0 - 45.0 %05/04/2025 8:28 AM [facility] ([facility] MCV90.082.0 - 98.0 fL05/04/2025 8:28 AM [facility] ([facility]MCH29.827.0 - 33.0 pg05/04/2025 8:28 AM [facility] ([facility]MCHC33.132.0 - 35.0 g/dL05/04/2025 8:28 AM [facility] ([facility]RDW15.6(H)11.5 - 15.0 % 05/04/2025 8:28 AM [facility] ([facility]Qnpyjbmpi125856 - 400 10*3/uL 05/04/2025 8:28 AM [facility] ([facility]Specimen (Source)Anatomical Location / LateralityCollection Method / VolumeCollection TimeReceived TimeBlood Venous blood specimen / UnknownVenipuncture / Synhasa5505/04/2025 8:02 AM EST 05/04/2025 8:16 AM EST Narrative Authorizing ProviderResult TypeResult StatusNicchelsea Higuera MDLAB BLOOD ORDERABLESFinal ResultPerforming OrganizationAddressCity/State/ZIP CodePhone Number [facility] ([facility] [address] [place] [address] * (ABNORMAL) Basic metabolic panel (05/04/2025 8:02 AM EST) Only the most recent of5 resultswithin the time period is included. ComponentValueRef RangeTest MethodAnalysis TimePerformed AtPathologist Signature Ipeywb139465 - 145 mmol/L107/04/2024 8:41 AM [facility] ([facility] Potassium4.03.5 - 5.1 mmol/L107/04/2024 8:41 AM [facility] ([facility] Zdyptdqs42402 - 107 mmol/L107/04/2024 8:41 AM [facility] ([facility]CO221 21 - 31 mmol/L107/04/2024 8:41 AM [facility] ([facility]BUN64(H)7 - 25 mg/dL05/04/2025 8:41 AM [facility] ([facility]Creatinine2.55(H)0.60 - 1.20 mg/dL05/04/2025 8:41 AM [facility] ([facility]Hofhvbd754(H)70 - 100 mg/dL05/04/2025 8:41 AM [facility] ([facility]Calcium8.68.6 - 10.3 mg/dL 05/04/2025 8:41 AM [facility] ([facility]Anion Ead483 - 20 mmol/L 05/04/2025 8:41 AM [facility] ([facility]eGFR19.2(L)>60.0 mL/min/1.73m*2 05/04/2025 8:41 AM [facility] ([facility]Comment:[facility]???s estimated glomerular filtration rate (eGFR) [...] group of individuals. BUN/Creatinine Ratio25. 8:41 AM [facility] ([facility]Specimen (Source)Anatomical Location / LateralityCollection Method / VolumeCollection TimeReceived TimeBloodVenous blood specimen / UnknownVenipuncture / Unknown 05/04/2025 8:02 AM EST05/04/2025 8:15 AM EST Narrative Authorizing ProviderResult TypeResult StatusNicholas Carl Lunaen MDLAB BLOOD ORDERABLESFinal ResultPerforming OrganizationAddressCity/State/ZIP CodePhone Number [facility] ([facility] [address] [place] [address] * Protein, urine, random (05/03/2025 3:01 PM EDT)ComponentValueRef RangeTest MethodAnalysis TimePerformed AtPathologist SignatureProtein, Ur105.9mg/dL 05/03/2025 3:31 PM EDTMESCALERO [facility] ([facility]Comment:There are no established reference values for random urine specimens.Specimen (Source) Anatomical Location / LateralityCollection Method / VolumeCollection Time Received TimeUrineUrine specimen obtained by clean catch procedure / Unknown Non-blood Collection / Ispphal9005/03/2025 3:01 PM EDT107/03/2024 3:10 PM EDT Narrative Authorizing ProviderResult TypeResult StatusJazzmine SNEED URINE ORDERABLESFinal ResultPerforming OrganizationAddressCity/State/ZIP CodePhone Number [facility] ([facility] [address] [place] [phone] * Creatinine, urine, random (05/03/2025 3:01 PM EDT)ComponentValueRef RangeTest MethodAnalysis TimePerformed AtPathologist SignatureCreatinine, Ur40.026 - 299 mg/dL05/03/2025 3:31 PM [facility] ([facility]Specimen (Source) Anatomical Location / LateralityCollection Method / VolumeCollection Time Received TimeUrineUrine specimen obtained by clean catch procedure / Unknown Non-blood Collection / Whxjtid3505/03/2025 3:01 PM EDT107/03/2024 3:10 PM EDT Narrative Authorizing ProviderResult TypeResult StatusJazzmine SNEED URINE ORDERABLESFinal ResultPerforming OrganizationAddressty/State/ZIP CodePhone Number [facility] ([facility] [address] [place] [address] * (ABNORMAL) Urinalysis microscopic (05/03/2025 3:01 PM EDT)ComponentValueRef RangeTest MethodAnalysis TimePerformed AtPathologist SignatureRBC, Urine3-5(A) None Seen, 0-2 /HPF05/03/2025 3:25 PM [facility] ([facility]WBC, Urine 0-2None Seen, 0-2 /HPF05/03/2025 3:25 PM [facility] ([facility]Squamous Epithelial, UrineFewNone Seen, Occasional, Few /LPF107/03/2024 3:25 PM [facility] ([facility]Mucus, UrineOccasionalNone Seen, Occasional, Few /LPF 05/03/2025 3:25 PM [facility] ([facility]Specimen (Source)Anatomical Location / LateralityCollection Method / VolumeCollection TimeReceived Time UrineUrine specimen obtained by clean catch procedure / UnknownNon-blood Collection / Mdtyhce6905/03/2025 3:01 PM EDT107/03/2024 3:10 PM EDT Narrative Authorizing ProviderResult TypeResult StatusMuhammad Royer SNEED URINE ORDERABLESFinal ResultPerforming OrganizationAddressCity/State/ZIP CodePhone Number [facility] ([facility] [address] [place] [address] * (ABNORMAL) Urinalysis (05/03/2025 3:01 PM EDT)ComponentValueRef RangeTest MethodAnalysis TimePerformed AtPathologist SignatureColor, UrineLight-Yellow Colorless, Yellow, Light-Kuxcpo3205/03/2025 3:25 PM [facility] ([facility]Clarity, SvgwpMmqbsWjzll78/01/2025 3:25 PM [facility] ([facility]pH, Urine5.05.0 - 8.0 pH05/03/2025 3:25 PM [facility] ([facility]Leukocytes, EvnskVxbosvwyWgavbste54/01/2025 3:25 PM [facility] ([facility]Nitrite, RatsjDcxenkbgKyyafslv19/01/2025 3:25 PM [facility] ([facility]Protein, Urine30(A)Negative mg/dL05/03/2025 3:25 PM [facility] ([facility]Glucose, UrineNormalNormal mg/dL05/03/2025 3:25 PM EDT [facility]Bilirubin, BiswzZbkcmaerHaciozry53/01/2025 3:25 PM [facility] ([facility]Specific Carlotta, Urine1.008(L)1.010 - 1.030 05/03/2025 3:25 PM [facility] ([facility]Ketones, UrineNegativeNegative mg/dL05/03/2025 3:25 PM [facility] ([facility]Blood, UrineNegative Petaensv57/01/2025 3:25 PM [facility] ([facility]Urobilinogen, Urine NormalNormal mg/dL05/03/2025 3:25 PM [facility] ([facility]Specimen (Source)Anatomical Location / LateralityCollection Method / VolumeCollection TimeReceived TimeUrineUrine specimen obtained by clean catch procedure / UnknownNon-blood Collection / Oqwsrfr9905/03/2025 3:01 PM EDT107/03/2024 3:10 PM EDT Narrative Authorizing ProviderResult TypeResult StatusJazzmine SNEED URINE ORDERABLESFinal ResultPerforming OrganizationAddressCity/State/ZIP CodePhone Number [facility]) [address] [place] [address] * Phosphorus (05/03/2025 7:15 AM EDT)ComponentValueRef RangeTest MethodAnalysis TimePerformed AtPathologist SignaturePhosphorus4.22.5 - 5.0 mg/dL05/03/2025 1:33 PM [facility] ([facility]Specimen (Source)Anatomical Location / LateralityCollection Method / VolumeCollection TimeReceived TimeBloodVenous blood specimen / UnknownVenipuncture / Xuczpte4205/03/2025 7:15 AM EDT107/03/2024 7:40 AM EDT Narrative Authorizing ProviderResult TypeResult StatusJazzmine SNEED BLOOD ORDERABLESFinal ResultPerforming OrganizationAddressCity/State/ZIP CodePhone Number [facility]) [address] [place] [address] * (ABNORMAL) PTH, intact (05/03/2025 7:15 AM EDT)ComponentValueRef RangeTest MethodAnalysis TimePerformed AtPathologist GnectjbesATD560(H)12 - 88 pg/mL 05/03/2025 1:53 PM EDTMESCALERO [facility] ([facility])Specimen (Source)Anatomical Location / LateralityCollection Method / VolumeCollection TimeReceived Time BloodVenous blood specimen / UnknownVenipuncture / Bhzkqui9605/03/2025 7:15 AM EDT107/03/2024 7:40 AM EDT Narrative Authorizing ProviderResult TypeResult StatusMuhammad Royer SNEED BLOOD ORDERABLESFinal ResultPerforming OrganizationAddressCity/State/ZIP CodePhone Number [facility] ([facility]) [address] [place] [address] * XR chest 1 view (05/02/2025 2:14 [...] ??This was exchanged out for a 6 Slovenian 11 cm sheath. Right heart catheterization was [...] ??He was to be transferred to the [facility] area in stable condition. FINDINGS: ?? Hemodynamics: RA 16 RV ??56/9, 15 PA ??56/27 [42] PCWP 31 TPG ??11 AO ??161/58 [98] Cardiac output /cardiac index 5.00/3.29 AO sat /PA sat 95%/64% INDICATIONS: Acute on chronic heart failure with preserved ejection fraction Authorizing ProviderResult TypeResult StatusGemarla Fish [facility] CARDIAC CATH PROCEDURESFinal Result * (ABNORMAL) %HbO2 (05/02/2025 11:42 AM EDT)ComponentValueRef RangeTest Method Analysis TimePerformed AtPathologist NgouqqbmqI9Gy%64.1(L)90.0 - 95.0 % 05/02/2025 11:42 AM [facility]TM[facility]Specimen (Source)Anatomical Location / LateralityCollection Method / VolumeCollection TimeReceived Time BloodVenous blood specimen / Izglatb1805/02/2025 11:42 AM EDT1 11:42 AM EDT Narrative Authorizing ProviderResult TypeResult Meliton SNEED POINT OF CARE TEST DOCKED DEVICE UNSOLICITED RESULTSFinal ResultPerforming Organization AddressCity/State/ZIP CodePhone Number [facility] ([facility]) [address] [place], [place] [id number] * ECG 12 lead (05/02/2025 9:14 AM EDT)ComponentValueRef RangeTest MethodAnalysis TimePerformed AtPathologist SignatureVentricular Ykkm00UQTBR MUSEAtrial Rate 74BPMGE MUSEPR Pjnhxhdl591hmGW MUSEQRS TPVYXJEU07yuLC MUSEQT Zjnlfuuv179nrOZ MUSEQTC CALCULATION(BAZETT)455msGE MUSEP Fljl81snmayghXP MUSER-Kons02ovuqyseYO MUSET Wave Iqii479duejtvbDD MUSESpecimen (Source)Anatomical Location / LateralityCollection Method / [...] Narrative 05/02/2025 12:21 PM EDT 1 1 [facility] [address] [place] [address] [phone] (fax) Echocardiogram-[facility] Name: CLAUDIA POLO Study Date: 05/02/2025 07:57 AM B/P: 164 mmHg/64 mmHg HR: 72 bpm Date of : 1950 Location: [facility] Height: 56 in. Age: 75 [...] No pericardial effusion. Procedure Staff Reading Group: [facility] Referring Physician: JOHN PERDOMO ??Underwater Hunter Trapper: HALLE Jacob Ordering Physician: EH HIGUERA ?? Procedure Note Arturo Baker MD - 05/02/2025 1 1 [facility] Heart Station [address] [facility] [place] [address] [phone] (fax) Echocardiogram-[facility] Name: CLAUDIA POLO Study Date: 05/02/2025 07:57 AM B/P: 164 mmHg/64 mmHg HR: 72 bpm Date of : 1950 Location: [facility] Height: 56 in. Age: 75 [...] No pericardial effusion. Procedure Staff Reading Group: [facility] Referring Physician: JOHN PERDOMO Underwater Hunter Trapper: HALLE Jacob Ordering Physician: EH HIGUERA Authorizing ProviderResult TypeResult Meliton Higuera [facility] ECHO PROCEDURESFinal Result * TSH3 Reflex to FT4 (05/02/2025 5:46 AM EDT)ComponentValueRef RangeTest Method Analysis TimePerformed AtPathologist SignatureTSH4.540.34 - 5.60 mIU/L 05/02/2025 2:16 PM [facility] ([facility]Specimen (Source)Anatomical Location / LateralityCollection Method / VolumeCollection TimeReceived Time BloodVenous blood specimen / UnknownVenipuncture / Ryeyvgx8505/02/2025 5:46 AM EDT1 6:07 AM EDT Narrative Authorizing ProviderResult TypeResult Meliton Higuera MSLEIDY BLOOD ORDERABLESFinal ResultPerforming OrganizationAddressCity/State/ZIP CodePhone Number [facility] ([facility] [address] [place] [address] * (ABNORMAL) Iron and TIBC (05/02/2025 5:46 AM EDT)ComponentValueRef RangeTest MethodAnalysis TimePerformed AtPathologist NgnfudcouKegf4230 - 212 ug/dL 05/02/2025 6:25 PM [facility] ([facility]UMUD625(L)250 - 450 ug/dL 05/02/2025 6:25 PM [facility] ([facility]Iron Fjwrquhafn1615 - 50 % 05/02/2025 6:25 PM [facility] ([facility]UDIU125.0155.0 - 355.0 ug/dL 05/02/2025 6:25 PM [facility] ([facility]Specimen (Source)Anatomical Location / LateralityCollection Method / VolumeCollection TimeReceived Time BloodVenous blood specimen / UnknownVenipuncture / Bqgsine8905/02/2025 5:46 AM EDT1 6:07 AM EDT Narrative Authorizing ProviderResult TypeResult StatusEh SNEED BLOOD ORDERABLESFinal ResultPerforming OrganizationAddressCity/State/ZIP CodePhone Number [facility] ([facility] [address] [place] [address] * (ABNORMAL) Reticulocyte panel (05/02/2025 5:46 AM EDT)ComponentValueRef Range Test MethodAnalysis TimePerformed AtPathologist SignatureRetic Ct Abs0.1054(H) 0.0250 - 0.1000 10*6/uL05/02/2025 6:17 PM [facility] ([facility]Retic Ct Pct3.50(H)0.50 - 1.80 %05/02/2025 6:17 PM [facility] ([facility] Immature Reticulocyte Fraction %22.4(H)2 - 16 %05/02/2025 6:17 PM [facility] ([facility]Reticulocyte Srxbhbkvjz09.928.0 - 36.0 pg05/02/2025 6:17 PM [facility] ([facility]Specimen (Source)Anatomical Location / LateralityCollection Method / VolumeCollection TimeReceived TimeBloodVenous blood specimen / UnknownVenipuncture / Esenhmt8605/02/2025 5:46 AM EDT1 6:09 AM EDT Narrative Authorizing ProviderResult TypeResult StatusEh SNEED BLOOD ORDERABLESFinal ResultPerforming OrganizationAddressCity/State/ZIP CodePhone Number [facility] ([facility] [address] [place] [address] * Folate (05/02/2025 5:46 AM EDT)ComponentValueRef RangeTest MethodAnalysis Time Performed AtPathologist MmegrmvelIrpihg77.266.6 - 1,000 ng/mL05/02/2025 6:48 PM [facility] ([facility]Specimen (Source)Anatomical Location / LateralityCollection Method / VolumeCollection TimeReceived TimeBloodVenous blood specimen / UnknownVenipuncture / Xqmrfwy0105/02/2025 5:46 AM EDT1 6:07 AM EDT Narrative Authorizing ProviderResult TypeResult Meliton SNEED BLOOD ORDERABLESFinal ResultPerforming OrganizationAddressCity/State/ZIP CodePhone Number [facility]) [address] [place] [address] * Ferritin (05/02/2025 5:46 AM EDT)ComponentValueRef RangeTest MethodAnalysis TimePerformed AtPathologist ZsjyzldvgNqraqczx919.011.0 - 307.0 ng/mL05/02/2025 6:48 PM [facility] ([facility]Specimen (Source)Anatomical Location / LateralityCollection Method / VolumeCollection TimeReceived TimeBloodVenous blood specimen / UnknownVenipuncture / Knmntni1505/02/2025 5:46 AM EDT1 6:07 AM EDT Narrative Authorizing ProviderResult TypeResult Meliton SNEED BLOOD ORDERABLESFinal ResultPerforming OrganizationAddressCity/State/ZIP CodePhone Number [facility]) [address] [place] [phone] * Vitamin B12 (05/02/2025 5:46 AM EDT)ComponentValueRef RangeTest MethodAnalysis TimePerformed AtPathologist SignatureVitamin [id number] - 914 pg/mL05/02/2025 6:48 PM [facility] ([facility]Comment: REFERENCE RANGES: 180-914 pg/mL ??Normal 145-179 pg/mL ??Indeterminate <145 pg/mL Deficient Specimen (Source)Anatomical Location / LateralityCollection Method / Volume Collection TimeReceived TimeBloodVenous blood specimen / UnknownVenipuncture / Sqpgrst9605/02/2025 5:46 AM EDT1 6:07 AM EDT Narrative Authorizing ProviderResult TypeResult Meliton SNEED BLOOD ORDERABLESFinal ResultPerforming OrganizationAddressCity/State/ZIP CodePhone Number [facility]) [address] [place] [address] * (ABNORMAL) B-type natriuretic peptide (05/02/2025 12:24 AM EDT)ComponentValue Ref RangeTest MethodAnalysis TimePerformed AtPathologist SignatureBNP1,236(H)0 - 100 pg/mL05/02/2025 1:10 AM [facility])Specimen (Source) Anatomical Location / LateralityCollection Method / VolumeCollection Time Received TimeBloodVenous blood specimen / UnknownVenipuncture / Unknown 05/02/2025 12:24 AM EDT1 12:33 AM EDT Narrative Authorizing ProviderResult TypeResult StatusS[facility] BLOOD ORDERABLESFinal ResultPerforming OrganizationAddressCity/State/ZIP CodePhone Number [facility]) [address] [place] [address] * Magnesium (05/02/2025 12:24 AM EDT)ComponentValueRef RangeTest MethodAnalysis TimePerformed AtPathologist SignatureMagnesium2.11.9 - 2.7 mg/dL05/02/2025 1:00 AM [facility] ([facility]Specimen (Source)Anatomical Location / LateralityCollection Method / VolumeCollection TimeReceived TimeBloodVenous blood specimen / UnknownVenipuncture / Wjejrvv4105/02/2025 12:24 AM EDT 05/02/2025 12:37 AM EDT Narrative Authorizing ProviderResult TypeResult StatusSheltering [facility] BLOOD ORDERABLESFinal ResultPerforming OrganizationAddressCity/State/ZIP CodePhone Number [facility]) [address] [place] [address] * (ABNORMAL) Hemoglobin A1c (07/10/2020 7:09 PM EST)ComponentValueRef RangeTest MethodAnalysis TimePerformed AtPathologist SignatureHemoglobin A1C6.2(H)4.0 - 6.0 %LAB CONVERSIONSEstimated Average Cmlsufq100kwpe/LLAB CONVERSIONSSpecimen (Source)Anatomical Location / LateralityCollection Method / VolumeCollection TimeReceived Time07/10/2020 7:09 PM EST07/10/2020 7:26 PM EST Narrative LAB CONVERSIONS - 07/12/2020 11:33 AM EST No: Do not add to previous draw Authorizing ProviderResult TypeResult StatusAlexandria Sirleaf [facility] BLOOD ORDERABLESFinal ResultPerforming OrganizationAddressCity/State/ZIP CodePhone Number LAB CONVERSIONS from Last 3 Months or Most Recently Relevant to Health Maintenance Insurance Advance Directives * Full Code (Latest Code Status on File) Date ActivatedDate JlpzpmvhjwyRpwiosih26/30/2025 8:06 PM05/04/2025 7:17 PM Care Teams Team MemberRelationshipSpecialtyStart DateEnd Date John Perdomo DO [address] [place] [address] PCP - Ashrvqk17/8/22
--- OUTSIDE RECORDS SUMMARY | 2025-05-12 09:00 | XMS_ITS | CCD ---
Author Organization [facility] Care Team Providers Care Tractor Mechanic Helper Name Role Phone JOHN PERDOMO Referring Unavailable [...] PERDOMO, DR JOHN Mcdonough Primary Care Unavailable EPRDOMO, DR JOHN Mcdonough Primary Care Unavailable BOBBY, KWAN Consulting Unavailable BOBBY, KWAN Admitting Unavailable BOBBY, KWAN Attending Unavailable PERDOMO, DR JOHN Mcdonough Primary Care Unavailable MARY GRACE, GENEVA Admitting Unavailable MARY GRACE, GENEVA Attending Unavailable MARY GRACE, GENEVA Consulting Unavailable Perdomo John VIGIL Unavailable [phone] Unallocated , Joses Provider Primary Care Provi kortney MIRTA TERAN Attending Unavailable ZAHLMIRTA MAST Attending Unavailable Perdomo John FAIR Primary Care Provider Geneva Jenkins MD Attending Provider John Perdomo DO Primary Care Provider [phone] Geneva Jenkins MD Attending Provider [phone] KARTHIK FISH Referring Unavailable DOTTIEMIGNON DAWIT Admitting Unavailable EH HIGUERA Attending Unavailable DEACON TO Attending Unavailable KARTHIK FISH Attending Unavailable KARTHIK FISH Attending Unavailable EH HIGUERA Referring Unavailable EH HIGUERA Referring Unavailable EH HIGUERA Referring Unavailable DEACON TO Attending Unavailable Allergies Allergy ClassificationReported Allergen(s)Allergy TypeDate of OnsetReaction(s) FacilityOpioid Agonists (1 source)HYDROmorphoneDrug Vxplydf40-29-8430AqkzggjHolzer Health SystemPenicillins (antibiotic) (1 source)Penicillin G BenzathineDrug Kakyjjf63-02-5561fxmvkDkadzytjnBrown Memorial Hospitalpironolactone (1 source)SpironolactoneDrug Phcfjkq95-00-3098tcusOuzmhxlleCleveland Clinic [facility] (2 sources)Erythromycin; Translations: [ERYTHROMYCIN]Drug Xnvqlny90-53-3270Lii [facility] (2 sources)HYDROmorphoneDrug Fqscvcr66-31-1833Xyh [facility] (2 sources)Penicillins; Translations: [PENICILLINS]Drug allergy (disorder) 59-72-5051Rqa [facility] (20 sources)ErythromycinDrug Gzrerna88-10-7875dvybcvghfzm, Other, UnknownNOWV Healthcare (20 sources)HYDROmorphone; Translations: [HYDROMORPHONE]Drug Ixkzeap05-83-8149 [facility] (20 sources)PenicillinDrug AllergyUnknowCox [facility] Other (20 sources)Penicillin G BenzathineDrug tuvekki03-87-8163evucfLesruzmnkGreene Memorial Hospital (14 sources)Erythromycin; Translations: [ERYTHROMYCIN BASE]Drug Allergy 10-29-7140WuaxefbmrjdXny [facility] (1 source)PenicillinDrug AllergyMarietta [facility] (9 sources)Spironolactone; Translations: [SPIRONOLACTONE]Drug Kxuqizp92-38-2350 [facility] (6 sources)Penicillin GDrug Dlqcxpt02-76-4507UrwmzGJNW Healthcare (5 sources)PenicillinsDrug Lbgyion73-90-5221KvilzBUQS Healthcare (5 sources)SpironolactoneDrug Vdxowog71-43-0980JqeuKXZC Healthcare Medications Current Medications MedicationDrug Class(es)DatesSig (Normalized)Sig (Original)allopurinol 100 mg oral tablet (20 sources)Xanthine Oxidase InhibitorStart: 77-24-3817qern 1 tablet by mouth once dailyAllopurinol 100 mg tablet Active 100 MG PO Daily April 22, 2025 11:37am Hyperuricemia 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 inflammatory arthritis and tophaceous disease Complies with drug therapyStart: 03-24-2025 End: 78-68-0571egvj 1 tablet by mouth once dailyAllopurinol 100 mg tablet Discontinued 0 .ROUTE .COMPLEX 90 March 24, 2025 12:12pm April 22, 2025 11:40am Hyperuricemia 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 inflammatory arthritis and tophaceous disease TAKE 1 TABLET BY MOUTH EVERY DAYStart: 09-03-2024 End: 79-54-5434pgoz 1 tablet by mouth once dailyAllopurinol 100 mg tablet Discontinued 100 MG PO Daily September 03, 2024 4:38pm March 24, 2025 12:13pm Hyperuricemia 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 inflammatory arthritis and tophaceous diseaseStart: 09-06-2023 End: 07-95-8537pprm 1 tablet by mouth once dailyAllopurinol 100 mg tablet Discontinued 0 .ROUTE .COMPLEX 90 July 29, 2024 7:27pm September 03, 2024 4:42pm Hyperuricemia 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 inflammatory arthritis and tophaceous disease TAKE 1 TABLET BY MOUTH EVERY DAYStart: 09-05-2023 End: 73-88-8935ihbs 1 tablet by mouth once dailyAllopurinol 100 [...] Inhibitor, Nonsteroidal Anti-inflammatory Drug Start: 09-25-2023 End: 31-51-9517uuvr 1 tablet by mouth once dailyAspirin 81 [...] tablet (20 sources)HMG-CoA Reductase InhibitorStart: 12-22-2022 End: 30-50-1545qvth 1 tablet by mouth at bedtimeatorvastatin (Lipitor) [...] oral tablet (20 sources)Loop DiureticStart: 04-22-2025 End: 80-75-9888adpk 1 tablet by mouth once dailyBumetanide 2 mg tablet Active 2 MG PO Daily April 22, 2025 11:54am Complies with drug therapyStart: 09-25-2023 End: 76-77-2585yjmf 1 tablet by mouth twice dailyBumetanide 2 mg tablet Discontinued 3 MG PO Twice daily January 08, 2024 1:04pm April 22, 2025 11: 40amStart: 09-25-2023 End: 60-95-0760pzsn 3 mg by mouth twice dailyBumetanide Active [...] sources)Carbonic Anhydrase Inhibitor, beta-Adrenergic BlockerStart: 05-15-2024 End: 85-14-6030cghy 1 drop(s) into the eye(s) in the morningdorzolamide-timolol (Cosopt) 2-0.5 % ophthalmic solution Indications: Primary open angle glaucoma (P OAG) of both eyes, mild stage ADMINISTER 1 DROP INTO BOTH EYES IN THE MORNING AND 1 DROP BEFORE BEDTIME. 30 mL 1 03/24/2025 03/24/2026 ActiveStart: 09-25-2023 dorzolamide-timolol (Cosopt) 2-0.5 % ophthalmic solution Twice daily 09/25/2023 ActiveStart: 20-32-5634faro 1 drop(s) into the eye(s) twice dailyDorzolamide- [...] mg oral capsule (20 sources)Provitamin D2 CompoundStart: 60-28-9930Gxewwdxwwbzvkq (Vitamin D2) 1,250 mcg (50,000 unit) capsule Active 44547 UNIT PO .COMPLEX 7 1 July 29, 2024 7:32pm 50,000 units orally every other week; Complies with drug therapy Start: 09-25-2023 End: 85-22-7859xrch 1 capsule by mouth every weekErgocalciferol (Vitamin D2) 1,250 mcg (50,000 unit) capsule Discontinued 23594 UNIT PO EVERY 2 WEEKS September 25, 2023 12:00am July 29, 2024 7:33pm FreeTextSig: TAKE 1 CAPSULE BY MOUTH ONE TIME PER WEEK; Note: Source Status: Start; Refills: 2; Qty: 12 Capsule; Provider: Mary Grace Bean ( )take 1 capsule by mouth every weekVitamin D (Ergocalciferol) 1.25 MG (78569 UT) TAKE 1 CAPSULE BY MOUTH ONE TIME PER WEEK for 84 Activetake 1 capsule by mouth every other week Ergocalciferol 1.25 MG (72043 UT) 1 capsule Orally Q2 week for 90 days Active ferrous sulfate 325 mg oral tablet (20 sources)Start: 09-19-2024 End: 91-05-6395yvmk 1 tablet by mouth every other dayFerrous Sulfate 325 mg (65 mg iron) tablet Active 0 .ROUTE .COMPLEX 45 March 24, 2025 12:12pm Anemia of renal disease Chronic kidney disease, unspecified Anemia in chronic kidney disease TAKEONE TABLET BY MOUTH EVERY OTHER DAY FOR 90 DAYS Complies with drug therapyStart: 09-03-2024 End: 37-99-1095Lprphri Sulfate 325 mg (65 mg iron) tablet Discontinued 325 MG PO Every 48 hours September 03, 2024 4:40pm September 19, 2024 1:26pm Anemia of renal disease Chronic kidney disease, unspecified Anemia in chronic kidney disease Start: 09-06-2023 End: 86-32-8553ulup 1 tablet by mouth every other dayFerrous Sulfate 325 mg (65 mg iron) tablet Discontinued 0 .ROUTE .COMPLEX 45 March 1249:48am September 03, 2024 4:42pm Anemia of renal disease Chronic kidney disease, unspecified Anemia inchronic kidney disease TAKE ONE TABLET BY MOUTH EVERY OTHER DAY FOR 90 DAYSStart: 11-59-7586anwd 1 tablet by mouth every other dayFerrous Sulfate Active 0 .ROUTE .COMPLEX 45 September 06, 2023 4:49pm TAKE 1 TABLET BY MOUTH EVERY OTHER DAYStart: 09-05-2023 End: 54-13-8009qhsl 1 tablet by mouth every other dayFerrous [...] acid 1 mg oral tablet (1 source)Start: 19-82-8821jris 1 tablet by mouth once dailyFolic Acid 1 mg tablet Active 1 MG PO Daily April 22, 2025 12:00am Complies with drug therapyhydrALAZINE hydrochloride 25 mg oral tablet (20 sources)Arteriolar VasodilatorStart: 21-78-6428cpkw 2 tablets by mouth twice dailyHydralazine 25 mg tablet Active 50 MG PO Twice daily April 22, 2025 12:02pm Complies with drug therapyStart: 04-22-2025 End: 47-25-2360arbw 1 tablet by mouth twice dailyHydralazine 25 mg tablet Discontinued 25 MG PO Twice daily April 22, 2025 11:38am April 12:02pmStart: 09-25-2023 End: 87-03-7831cjqx 1 tablet by mouth three times dailyHydralazine 25 mg tablet Discontinued 25 MG PO Three times daily January 08, 2024 1:09pm April 22, 2025 11:40amStart: 17-50-3644wjnx 1 tablet by mouth three times dailyhydrALAZINE (Apresoline) 50 MG tablet TAKE 1 TABLET BY MOUTH THREE TIMES A DAY FOR 90 DAYS 08/11/2022 ActiveStart: 43-22-0354fafc 1 tablet by mouth every twelve hours hydrALAZINE HCl 25 MG 1 tablet with food Orally bid for 90 day(s) Aug, Activetake 1 tablet by mouth every eight hourshydrALAZINE HCl 25 MG 1 tablet with food Orally Three times a day for 90 day(s) Active3 ml insulin glargine 100 unt/ml pen injector (12 sources)Insulin AnalogStart: 96-15-4345mxbyfo 10 [IU] by subcutaneous injection once as neededInsulin Glargine (Basaglar Kwikpen U-100 Insulin) 100 unit/mL (3 mL) insulin pen Active 10 UNIT SUBCUT Once as needed April 22, 2025 11:38am Complies with drug therapyStart: 09-25-2023 End: 84-97-9550Wfjxbdi Glargine (Basaglar Kwikpen U-100 Insulin) 100 unit/mL [...] BY MOUTH EVERY OTHER DAY for 90 Mxvjii68 hr isosorbide mononitrate 30 mg extended release oral tablet (5 sources)Nitrate VasodilatorStart: 03-29-3885kdkt 1 tablet by mouth once daily in the morningisosorbide mononitrate ER (Imdur) 30 MG 24 hr tablet TAKE 1 TABLET BY MOUTH EVERY MORNING *DO NOT CRUSH OR CHEW* 08/17/2023 Activeisosorbide dinitrate 30 mg oral tablet (16 sources)Nitrate VasodilatorStart: 44-13-7062xjof 1 tablet by mouth once dailyIsosorbide Dinitrate [...] sodium 0.075 mg oral tablet (20 sources)l-ThyroxineStart: 66-08-1591cbyk 1 tablet by mouth once daily Levothyroxine 75 mcg tablet Active 75 MCG PO Daily January 29, 2025 12:00am Complies with drug therapyStart: 09-25-2023 End: 16-43-6325ghix 1 tablet by mouth once dailyLevothyroxine 50 [...] sodium 0.005 mg oral tablet (5 sources)l-TriiodothyronineStart: 55-81-5666grrw 2 tablets by mouth once daily liothyronine (Cytomel) 5 MCG tablet TAKE 2 TABLETS BY MOUTH ONCE A DAY 08/11/2023 ActivemetOLazone 2.5 mg oral tablet (20 sources)Thiazide-like DiureticStart: 83-15-3395agup 1 tablet by mouth two times weekly as neededMetolazone 2.5 mg tablet Active 2.5 MG PO .COMPLEX as needed April 22, 2025 11:38am 2.5 mg orally twice a week PRN; Complies with drug therapyStart: 09-25-2023 End: 77-07-9531Oysvepqmnh 2.5 mg tablet Discontinued 2.5 MG PO [...] meq extended release oral tablet (20 sources)Start: 33-14-5798heqq 1 tablet by mouth oncePotassium Chloride 20 mEq tablet extended release Active 20 MEQ PO Once April 22, 2025 11:36am C omplies with drug therapyStart: 09-25-2023 End: 49-47-4457seof 40 mEq by mouth three times dailyPotassium Chloride Active 40 MEQ PO Three times daily 540 90 November 16, 2023 1:50pmStart: 04-10-2023 End: 59-33-6500jkee 2 tablets by mouth in the morning, [...] (20 sources)Dihydropyridine Calcium Channel BlockerStart: 10-28-2020 End: 53-65-5167kqkz 1 tablet by mouth once dailyAmlodipine 10 mg tablet Discontinued 1 TAB PO Daily September 25, 2023 12:00am September 03, 2024 4:42pm FreeTextSi tablet Orally Once a day; Note: Source Status: Taking; Provider: Mary Grace Bean ( )doxazosin 4 mg oral tablet (20 sources)alpha-Adrenergic BlockerStart: 01-08-2024 End: 94-11-9731itfg 6 mg by mouth twice dailyDoxazosin 4 mg tablet Discontinued 6 MG PO Twice daily January 08, 2024 1:05pm April 22, 2025 11:39amStart: 09-25-2023 End: 20-62-6890ysqo 6 mg by mouth twice dailyDoxazosin Active 6 MG PO Twice daily January 08, 2024 1:05pmStart: 10-24-2022 End: 08-70-6119jyhzlaihm (Cardura) 4 MG tablet TAKE 1 AND 1/2 TABLETS BY MOUTH TWICE DAILY FOR 90 DAYS 10/24/2022 Activemetoprolol tartrate 50 mg oral tablet (20 sources)beta-Adrenergic BlockerStart: 01-08-2024 End: 14-23-6167Dvlbpmdwdt Tartrate 50 mg tablet Discontinued 75 MG PO Twice daily January 08, 2024 1:07pm April 22, 2025 11:40amStart: 09-25-2023 End: 47-39-4641Mdybjitync Tartrate 50 mg tablet Discontinued MG PO September 25, 2023 12:00am January 08, 2024 1:08pm FreeTextSi 1/2 tablet with food Orally Twice a day; Note: Source Status: Taking; Provider: Mary Grace Bean ( )Start: 09-25-2023 End: 72-74-5151ozgs 75 mg by mouth twice dailyMetoprolol Tartrate Active 75 MG PO Twice daily January 08, 2024 1:07pmStart: 65-76-3491xxxi 1.5 tablets by mouth in the morningmetoprolol tartrate (Lopressor) 50 MG tablet Take 1.5 tablets by mouth in the morning and 1.5 tablets before bedtime. 09/13/2022 ActiveMetoprolol Tartrate 50 MG 1 1/2 tablet with food Orally Twice a day Activemidodrine hydrochloride 5 mg oral tablet (10 sources)alpha-Adrenergic AgonistStart: 01-08-2024 End: 02-17-3726knfu 1 tablet by mouth three times daily as neededMidodrine 5 mg tablet Discontinued 5 MG PO Three times daily as needed January 08, 2024 12:00am April 22, 2025 11:39am Problems Active Problems Problem ClassificationProblemDateDocumented DateEpisodic/ChronicAcute and unspecified renal failure (2 sources)Acute renal failure syndrome; Translations: [Acute kidney failure, unspecified]61-37-5696AarpkwcoLimicfb kidney disease (20 sources)Chronic kidney disease stage 4; Translations: [Chronic kidney disease, stage 4 (severe)]Onset: 05-18-2021 Resolved: 04-14-3046LlvlxsvCzkqkwbtnn heart failure; nonhypertensive (15 sources)Chronic diastolic (congestive) heart failure; Translations: [Acute combined systolic (congestive) and diastolic (congestive) heart failure]Onset: 50-78-2086WbxvvcqUgxdvfvv atherosclerosis and other heart disease (5 sources)Atherosclerotic heart disease of [place] coronary artery without angina pectoris; Translations: [Coronary arteriosclerosis]Onset: 04-04-2022 ChronicCoronary atherosclerosis and other heart disease (2 sources)Presence of aortocoronary bypass graft; Translations: [Presence of aortocoronary bypass graft]Onset: 26-87-9563ZtcqxzhnJzaomvvwva and other anemia (20 sources)Anemia of renal disease; Translations: [Anemia in chronic kidney disease]35-39-9520RwpeccxFffopwvwdp and other anemia (2 sources)Anemia in chronic kidney diseaseChronicDiabetes mellitus with complications (20 sources)Disorder of kidney due to diabetes mellitus; Translations: [Type 2 diabetes mellitus with diabetic chronic kidney disease]Onset: 05-18-2021 Resolved: 73-98-7512SroeaerSyxtghndj of lipid metabolism (14 sources)Hyperlipidemia; Translations: [Hyperlipidemia, unspecified]Onset: 576753-10-3303KhpjippGhcnbpdbo hypertension (9 sources)Essential (primary) hypertension; Translations: [Hypertensive disorder]Onset: 75-02-9947CkgkdahArnkj and electrolyte disorders (20 sources)Hypokalemia; Translations: [Hypokalemia]Onset: 05-18-2021 Resolved: 21-73-1550DirkbgewAxmxdkgvrxmtv symptoms and ill-defined conditions (20 sources)Other microscopic hematuria; Translations: [Microscopic hematuria] Onset: 05-18-2021 Resolved: 45-64-0167UjojtydkMruzaukj (9 sources)Primary open angle glaucoma; Translations: [Primary open-angle glaucoma, bilateral, mild stage]Onset: 154252-87-7160OlkrsgcJjxpr valve disorders (1 source)Rheumatic disorders of both mitral and tricuspid valves; Translations: [RHEUMATIC D/O MITRAL TRICUSPID VALV]Onset: 16-59-8452PkjoavvYoexw valve disorders (2 sources)Heart murmur; Translations: [Heart Murmur]Onset: 02-50-5079Qayedxwy Hypertension with complications and secondary hypertension (20 sources)Chronic kidney disease due to hypertension; Translations: [Hypertensive chronic kidney disease withstage 1 through stage 4 chronic kidney disease, or unspecified chronic kidney disease]Onset: 05-18-2021 Resolved: 02-11-6383EwcvzbrMtvpnts and fatigue (2 sources)Fatigue; Translations: [Fatigue]Onset: 07-80-7595ZspdbcvxVqgjqpllcge chest pain (2 sources)Chest pain; Translations: [Chest Pain]Onset: 45-82-7504Oruoytap Nutritional deficiencies (6 sources)Iron deficiency; Translations: [IRON DEFICIENCY]Onset: 05-18-2021 Resolved: 36-22-9406RmfdihvfVeoma connective tissue disease (20 sources)Full thickness rotator cuff tear; Translations: [Complete rotator cuff tear or rupture of left shoulder, not specified as traumatic]EpisodicOther diseases of kidney and ureters (20 sources)Secondary hyperparathyroidism; Translations: [Secondary hyperparathyroidism of renal origin]76-48-5454AwzsqdxDcfov diseases of kidney and ureters (11 sources)Secondary hyperparathyroidism of renal origin; Translations: [Secondary hyperparathyroidism (of renal origin)]Onset: 05-18-2021 Resolved: 66-85-8782DmgxvcvUpibs lower respiratory disease (2 sources)Shortness of breath; Translations: [Shortness of Breath]Onset: 94-34-8239BgwsuatuEosem lower respiratory disease (2 sources)Cough; Translations: [Cough]Onset: 71-82-9823KwrfptxoFsqts non- traumatic joint disorders (20 sources)Arthralgia of the lower leg; Translations: [Right knee pain]Episodic Other nutritional; endocrine; and metabolic disorders (12 sources)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 inflammatory arthritis and tophaceous disease; Translations: [Other abnormal blood chemistry]Onset: 05-18-2021 Resolved: 99-35-6754DlbebaazUiwgi nutritional; endocrine; and metabolic disorders (9 sources)Hyperuricemia; Translations: [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 inflammatory arthritis and tophaceous disease]47-23-8519NubexmbuGqogoqzu codes; unclassified (2 sources)Edema; Translations: [Edema]Onset: 80-76-8242LkwtapzvKxybdhl disorders (20 sources)Non-toxic multinodular goiter; Translations: [Nontoxic multinodular goiter]Onset: 48-15-9445JujmpyfJbegfgqtonpi (3 sources)CONTACT W/AND (SUSP) EXPOS COVID-19; Translations: [CONTACT W/AND (SUSP) EXPOS COVID-19]Onset: 12-10-2021 Past or Other Problems Problem ClassificationProblemDateDocumented DateEpisodic/ChronicOther bone disease and musculoskeletal deformities (1 source)Other specified disorders of bone density and structure, right forearm; Translations: [OTH D/O BONEDEN STRUCT RT FORARM]Onset: 06-04-2022 EpisodicOther eye disorders (8 sources)Scar of cornea of right eye; Translations: [Unspecified corneal scar and opacity]Onset: 064548-63-2907OkixkbxvAycte eye disorders (8 sources)Dry eyes; Translations: [Dry eye syndrome of bilateral lacrimal glands]Onset: 443373-29-3331QipfkrngRfpbg lower respiratory disease (5 sources)Shortness of breath; Translations: [SHORTNESS OF BREATH]Onset: 36-06-8647MuoizkxkQylbc lower respiratory disease (5 sources)Other forms of dyspnea; Translations: [OTHER FORMS OF DYSPNEA]Onset: 93-32-1583AjuculbnPmerw non-traumatic joint disorders (4 sources)Pain in right elbow; Translations: [PAIN IN RIGHT ELBOW]Onset: 44-57-2129HvcdcjebJoogpuxr codes; unclassified (1 source)Localized edema; Translations: [LOCALIZED EDEMA]Onset: 06-18-2022 EpisodicUnclassified (20 sources)Sprain of right knee; Translations: [Right knee sprain]Unclassified (1 source)CONTACT W/AND (SUSP) EXPOS COVID-19; Translations: [CONTACT W/AND (SUSP) EXPOS COVID-19]Onset: 12-07-2021 Results Test NameValueInterpretationReference WyukaJzpncohp82zl 72-64-421205Rlbbdb patient to make her aware there are no DVT in either leg per LE venous ultrasound.NormalUnMadison Health36Nvm dalia took care of this, pt having an us of both legs and going to watch for increased swelling/sob/weight gainNormalUniversity of [facility] Telephoneon [id number] Claudia Estrella 1950 F Date Provider Department Center 05/07/2025 FRANCIS MUÑOZ Hos Family History Problem Relation Age of Onset Heart attack Mother Heart failure Mother Heart attack Father Family Status - Relation Status Age at Mother Father DeceasedNormalUniAshtabula County Medical Center36on Discharge date: 05/04/25 Call date: 05/05/25 Spoke with: patient HF Follow-up date: 05/20/25 Med reconciliation completed: pt declined Questions/Concerns: Patient stated she has been a little tired since discharge, but she denied any CP and stated her SOB is back to baseline. 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 Follow up appts reviewed with pt. Pt asked about cardiac rehab and mentioned she lives in [place]. Track Laying Machine Operator informed pt she can have the referral faxed to the cardiac rehab closer to her home. Patient is aware of her follow up appt with cardiology. Track Laying Machine Operator offered to move her follow-up to a sooner date but pt declined. Pt agreed to call anything changes and she would like to be seen sooner.NormalUnMadison HealthTelephoneon [phone] [id number] Claudia Estrella 1950 F Date Provider Department Center 05/05/2025 65725-IAIPDIEABISAI [facility] CA HeartVAS Family History Problem Relation Age of Onset Heart attack Mother Heart failure Mother Heart attack Father Family Status - Relation Status Age at Mother Father Reason for Visit and Comments: HF post discharge call and inpatient survey sent. [Other]NormalUnMadison HealthBASIC METABOLIC PANELon 61-41-1902Kfeeg gap [Moles/Vol]14 mmol/LNormal7-20UnMadison HealthComment on above:Performed By: #### [id number] #### [facility] (BEAKER) [address] [place], [place] [address]Xxangmh [Mass/Vol]8.6 mg/dLNormal8.6-10.3UnMadison HealthComment on above:Performed By: #### [id number] #### [facility] (BEAK[facility]) [address] [place], [place] [address]Tbwyvebb [Moles/Vol]107 mmol/CZkraiy50-182OsrpllzpmrMadison HealthComment on above:Performed By: #### [id number] #### [facility] (BEAKER) [address] [place] [address]HO0 [Moles/Vol]21 mmol/CDwydwl41-07TjjspirfazMadison HealthComment on above:Performed By: #### [id number] #### [facility] ([facility]) [address] [place] [address]Xolxsuffei [Mass/Vol]2.55 mg/dLHigh0.60-1.20UnMadison HealthComment on above:Performed By: #### [id number] #### [facility] ([facility]) [address] [place] [address]IBHGXEUXBP FILTRATION RATE ML/MIN/1.73 SQ M.XIRVIUXRF96.2 mL/min/1.73m*2Low>60.0UnMadison HealthComment on above:Result Comment: [facility]???s estimated glomerular filtration rate (eGFR) will [...] group of individuals.Performed By: #### [id number] #### [facility] ([facility]) [address] [place] [address]Oamirmg [Mass/Vol]122 mg/jARbzr16-989PbzmkjphmsMadison HealthComment on above:Performed By: #### [id number] #### [facility] ([facility]) [address] [place] [address]Wkpjgstjy [Moles/Vol]4.0 mmol/LNormal3.5-5.1UnMadison HealthComment on above:Performed By: #### [id number] #### [facility] ([facility]) [address] [place] [address]Bjynjm [Moles/Vol]138 mmol/EVljren187-997JbzvoxzlorMadison HealthComment on above:Performed By: #### [id number] #### [facility] ([facility] [address] [address]Ypcq nitrogen [Mass/Vol]64 mg/dLHigh7-25UnMadison HealthComment on above:Performed By: #### [id number] #### [facility] ([facility] [address] [place] [address]VMLF NITROGEN/CREATININE (MASS RATIO) IN SER/PLAS25.1Normal [facility] HospitalComment on above:Performed By: #### [id number] #### [facility] ([facility]) [address] [place] [address]UUVcg 66-01-7877Wkucsttygcp distribution width (RBC) [Ratio]15.6 %High11.5-15.0UnMadison HealthComment on above:Performed By: #### [id number] ####[facility] ([facility])[address] [place] [address] ERYTHROCYTE MEAN CORPUSCULAR HEMOGLOBIN CONCENTRATION (G/DL) BY QLHCWUPUL54.1 g/rZPwubvr86.0-35.0UnMadison HealthComment on above:Performed By: #### [id number] ####[facility] ([facility])[address] [place], [place] [address]Emqranpncq (Bld) [Volume fraction]26.0 %Low36.0-45.0UnMadison HealthComment on above:Performed By: #### [id number] ####[facility] ([facility])[address] [place], [place] [address]Yhvegetrgd (Bld) [Mass/Vol]8.6 g/dLLow 12.0-15.0UnMadison HealthComment on above:Performed By: #### [id number] ####[facility] ([facility])[address] [place], [place] [address]QTG (RBC) [Entitic mass]29.8 ywSkliur01.0-33.0UnMadison HealthComment on above:Performed By: #### [id number] ####[facility] ([facility])[address] [place] [address]JUR (RBC) [Entitic vol]90.0 uMAsfxjz59.0-98.0UnMadison HealthComment on above:Performed By: #### [id number] ####[facility] ([facility])[address] [place] [address]IRNIETAYX (10*3/UL) IN BLOOD AUTOMATED [id number] 10*3/bOMwahts417-203IdxzgioqenMadison Health Comment on above:Performed By: #### [id number] ####[facility] ([facility])[address] [place] [address]ZLC (Bld) [#/Vol]2.89 10*6/uLLow3.80-5.00UnMadison HealthComment on above:Performed By: #### [id number] ####[facility] ([facility])[address] [place] [address]TEA (Bld) [#/Vol]8.26 10*3/uLNormal4.00-10.60UnMadison HealthComment on above: Performed By: #### [id number] ####[facility] ([facility])[address] [place] [address]MBpb 21-72-1269UF Attestation signed by Eh Higuera MD at [...] Nephrology ([facility], [facility]). Internal Medicine Discharge Summary Final Discharge Diagnosis: Acute on chronic HFrEF Admission Diagnosis: Acute on chronic heart failure with preserved ejection fraction (HFpEF) ([facility]) [I50.33] Hospital course: 75-year-old female with [...] 05/20/2025 10:00 AM Deacon [facility] Your medication list PAUSE taking these [...] MOUTH EVERYDAY AT BEDTIME ergocalciferol 1.25 MG (97114 Units) capsule Commonly known as: Vitamin D-2 [...] midodrine 5 mg tablet (more content not included)...NormalUnMadison HealthNURSNOTE on 20-94-7091JBJEOMUEWi discharged with all belongings, discharge paperwork, and all questions answered to pt's satisfaction.NormalOhio State East HospitalPOCT GLUCOSE METER UNSOLICITED RESULTSon 73-07-1399Jnnulml [Mass/Vol]184 mg/dLHigh 70-105UnMadison HealthComment on above:Order Comment: Waived Testing in the ED is performed under the ED CLIA certificate #[id number].Result Comment: jarizmePerformed By: #### [id number] ####[facility] ([facility])[address] [place] [address]ea 44-51-836208Ivg patient is Moderately Stable - Low risk of patient condition declining or worsening The patient's goals for the shift include comfort, rest The clinical goals for the shift include VSS, safetyNormalUniversMemorial Health System Selby General HospitalBASIC METABOLIC PANELon 45-01-6599Cianb gap [Moles/Vol]14 mmol/L Normal7-20UnMadison HealthComment on above:Performed By: #### [id number] ####[facility] ([facility])[address] [place], [place] [address]Ncvkgzm [Mass/Vol]8.6 mg/dLNormal8.6-10.3UnMadison HealthComment on above:Performed By: #### [id number] ####[facility] ([facility])[address] [place], [place] [address]Wdhxsurg [Moles/Vol]108 mmol/ZXlar53-693CxmqkdetxmOhio State East HospitalComment on above:Performed By: #### [id number] ####[facility] ([facility])[address] [place], [place] [address]EN2 [Moles/Vol]20 mmol/TDuk51-33 [facility] State East HospitalComment on above:Performed By: #### [id number] ####[facility] ([facility])[address] [place], [place] [address]Jnilngclfm [Mass/Vol]2.76 mg/dLHigh0.60-1.20UnMadison HealthComment on above:Performed By: #### [id number] ####[facility] ([facility])[address] [place] [address]OHQQZMEWOR FILTRATION RATE ML/MIN/1.73 SQ M.JJWOILZUD30.5 mL/min/1.73m*2Low>60.0UnMadison HealthComment on above:Result Comment: [facility]???s estimated glomerular filtration rate (eGFR) will [...] anyone group of individuals.Performed By: #### [id number] ####[facility] ([facility])[address] [place] [address]Usihmzk [Mass/Vol]113 mg/rWUhdd28-988CropswblhzMadison HealthComment on above:Performed By: #### [id number] ####[facility] ([facility])[address] [place] [address]Qcjkyacqa [Moles/Vol]4.0 mmol/L Normal3.5-5.1UnMadison HealthComment on above:Performed By: #### [id number] ####[facility] ([facility])[address] [place] [address] Sodium [Moles/Vol]138 mmol/SRcigij737-609AvqsgtksvpMadison Health Comment on above:Performed By: #### [id number] ####[facility] ([facility])[address] [place], [place] [address]Feuh nitrogen [Mass/Vol]61 mg/dLHigh7-25UnMadison HealthComment on above:Performed By: #### [id number] ####[facility] ([facility])[address] [facility] [place] [address]NOWX NITROGEN/CREATININE (MASS RATIO) IN SER/PLAS22.1NormalUnMadison HealthComment on above:Performed By: #### [id number] ####[facility] ([facility])[address] [place] [address]DDKeo 75-70-5736Umeposbcbdr distribution width (RBC) [Ratio] 15.5 %High11.5-15.0UnMadison HealthComment on above:Performed By: #### [id number] #### [facility] ([facility]) [address] [place], [place] [address]QZHPVFPLJYV MEAN CORPUSCULAR HEMOGLOBIN CONCENTRATION (G/DL) BY ESZSNHBAP61.2 g/sMQrglez50.0-35.0UnMadison HealthComment on above:Performed By: #### [id number] #### [facility] ([facility]) [address] [place], [place] [address]Gczbxvmthv (Bld) [Volume fraction]26.5 %Low36.0-45.0UnMadison HealthComment on above:Performed By: #### [id number] #### [facility] ([facility]) [address] [place], [place] [address]Zlfqcpbigx (Bld) [Mass/Vol]8.8 g/dLLow12.0-15.0UnMadison HealthComment on above:Performed By: #### [id number] #### [facility] ([facility]) [address] [facility]OS[facility]IT[facility] [place], [place] [address]KBL (RBC) [Entitic mass]29.7 vxShysrd49.0-33.0UnMadison HealthComment on above:Performed By: #### [id number] #### [facility] ([facility]) [address] [place], [place] [address]GZB (RBC) [Entitic vol]89.5 nPMbtgpf04.0-98.0UnMadison HealthComment on above:Performed By: #### [id number] #### [facility] ([facility]) [address] [place], [place] [address]FNTNXPPLY (10*3/UL) IN BLOOD AUTOMATED [id number] 10*3/uLNormal 150-400UnMadison HealthComment on above:Performed By: #### [id number] #### [facility] ([facility]) [address] [place] [place] [address]QJZ (Bld) [#/Vol]2.96 10*6/uLLow3.80-5.00UnMadison HealthComment on above:Performed By: #### [id number] #### [facility] ([facility]) [address] [place], [place] [address]TDF (Bld) [#/Vol]9.33 10*3/uLNormal4.00-10.60UnMadison HealthComment on above:Performed By: #### [id number] #### [facility] ([facility]) [address] [facility]OS[facility]IT[facility] [place], [place] [address]OKKNOKCmi 45-57-3626DOJLUKB Attestation signed by Jazzmine Kelsey MD at [...] Faculty, Division of Nephrology, Department of Medicine, [facility] Sciences. Nephrology Consult Note Patient : Claudia [...] and essential hypertension who was admitted to [facility] as a transfer from [facility] on 05/01/2025 after she initially presented with [...] HGB 8.8 (L) 05/03/20 (more content not included)...NormalUnMadison HealthCREATININE, URINE, RANDOMon 11-80-5544Dbtlmfyfae (U) [Mass/Vol] 40.0 mg/nUDtypqq20-869CbdonytwflMadison HealthComment on above: Performed By: #### [id number] ####[facility] ([facility])[address] [place], [place] [address]CFHNSVURSYkq 40-62-9677Plfrjeeug [Mass/Vol]4.2 mg/dLNormal 2.5-5.0UnMadison HealthComment on above:Performed By: #### [id number] #### [facility] ([facility]) [address] [place], [place] [address]KKDZ GLUCOSE METER UNSOLICITED RESULTSon 18-73-4297Btgdrfq [Mass/Vol]168 mg/pJQupz96-961BlrfbncpvdMadison HealthComment on above:Order Comment: Waived Testing in the ED is performed under the ED CLIA certificate #[id number].Result Comment: [id number] By: #### [id number] ####[facility] ([facility])[address] [place], [place] [address]Aevwebq [Mass/Vol]187 mg/oASenv52-839GnxbhhjbzhMadison HealthComment on above:Order Comment: Waived Testing in the ED is performed under the ED CLIA certificate #[id number].Result Comment: gbfstym2Mwrmqvpcc By: #### [id number] ####[facility] ([facility])[address] [place], [place] [address]Xqrjook [Mass/Vol]154 mg/wTLrvj46-261GtttjespjuMadison HealthComment on above:Order Comment: Waived Testing in the ED is performed under the ED CLIA certificate #[id number].Result Comment: qiswgma3Tybxiutry By: #### [id number] ####[facility] ([facility])[address] [place], [place] [address]Gxvczkv [Mass/Vol]126 mg/zTVcla76-054WhaficdqtcMadison HealthComment on above:Order Comment: Waived Testing in the ED is performed under the ED CLIA certificate #[id number].Result Comment: xcanqqy2Xusmrnlhh By: #### [id number] #### [facility] ([facility]) [address] [place], [place] [address]ZAXZGRO, URINE, RANDOMon 62-28-8062Fvbviei (U) [Mass/Vol]105.9 mg/dLNormalUniAshtabula County Medical CenterComment on above:Result Comment: There are no established reference values for random urine specimens.Performed By: #### [id number] #### [facility] ([facility]) [address] [place], [place] [address]HBT, INTACTon 77-18-3824DNKSKEDBBG INTACT (PG/ML) IN SER/DSQA558 pg/tABved67-51ArsmryizooMadison HealthComment on above:Performed By: #### [id number] ####[facility] ([facility])[address] [place] [address] URINALYSISon 92-33-0215GXBCEUAAV, TOTAL PRESENCE IN URINENegativeNormalNegative [facility] HospitalComment on above:Performed By: #### [id number] ####[facility] ([facility])[address] [place], [place] [address]Skemelj (U)Clear NormalClearUnMadison HealthComment on above:Performed By: #### [id number] ####[facility] ([facility])[address] [place] [address] Color (U)Light-YellowNormalColorless, Yellow, Light-YellowUnMadison HealthComment on above:Performed By: #### [id number] ####[facility] ([facility])[address] [place], [place] [address]FHGPZWE (MG/DL) IN URINENormalNormal NormalUnMadison HealthComment on above:Performed By: #### [id number] ####[facility] ([facility])[address] [place] [address] HEMOGLOBIN PRESENCE IN URINENegativeNormalNegativeUnMadison HealthComment on above:Performed By: #### [id number] ####[facility] ([facility])[address] [place], [place] [address]Rinwggd Ql (U)NegativeNormalNegative [facility] HospitalComment on above:Performed By: #### [id number] ####[facility] ([facility])[address] [place], [place] [address]EAYXYHXSG ESTERASE PRESENCE IN URINE BY TEST STRIPNegativeNormalNegativeUnMadison HealthComment on above:Performed By: #### [id number] ####[facility] ([facility])[address] [place], [place] [address]OQLUALS PRESENCE IN URINE NegativeNormalNegativeUnMadison HealthComment on above: Performed By: #### [id number] ####[facility] ([facility])[address] [place], [place] [address]fZ (U)5.0 [pH]Normal5.0-8.0UnMadison HealthComment on above:Performed By: #### [id number] ####[facility] ([facility])[address] [place], [place] [address]Ebdnxor (U) [Mass/Vol]30 mg/dLAbnormal NegativeUnMadison HealthComment on above:Performed By: #### [id number] ####[facility] ([facility])[address] [place] [address]Bmflsnwd gravity (U) [Rel density]1.556Dsn8.010-1.030UnMadison Health Comment on above:Performed By: #### [id number] ####[facility] ([facility])[address] [place] [address]NLHRJBAQXKVK (MG/DL) IN URINENormalNormalNormal [facility] HospitalComment on above:Performed By: #### [id number] ####[facility] ([facility])[address] [place], [place] [address]CLEVPZQOOT MICROSCOPICon 84-40-0161KLDED (#/LPF) IN URINE SEDIMENTOccasionalNormalNone Seen, Occasional, FewUnMadison HealthComment on above: Performed By: #### [id number] ####[facility] ([facility])[address] [place], [place] [address]ULR (#/HPF) IN URINE SEDIMENT3-5AbnormalNone Seen, 0-2 [facility] HospitalComment on above:Performed By: #### [id number] ####[facility] ([facility])[address] [place], [place] [address]OFRTMIEI EPITHELIAL CELLS (#/LPF) IN URINE SEDIMENTFewNormalNone Seen, Occasional, Few [facility] HospitalComment on above:Performed By: #### [id number] ####[facility] ([facility])[address] [place], [place] [address]BDT (LEUKOCYTE) (#/HPF) IN URINE SEDIMENT0-2NormalNone Seen, 0-2UnMadison HealthComment on above:Performed By: #### [id number] ####[facility] ([facility])[address] [place] [address]kt 47-88-276895Gwi patient is Moderately Stable - Low risk of patient condition declining or worsening The patient's goals for the shift include comfort, rest The clinical goals for the shift include VSSNormalUniversity of Trihealth Eluvpd04Tjn patient is Moderately Stable - Low risk [...] and behaviors that affect risk of falls [place] fall precautions as indicated by assessment Educate [...] any respiratory difficulty Respiratory therapy support as indicatedNormalUniversity of [facility]30The patient is Moderately Stable - Low risk of patient condition declining or worsening The patient's goals for the shift include comfort and rest The clinical goals for the shift include stable VSNormalUniversity of Nacogdoches Memorial HospitalANESon 52-72-5919LFTF Attestation signed by Rickey Jackson MD at 05/02/2025 11:12 AM Rickey Jackson MD, MPH, [facility], [facility], [facility] Interventional Cardiology Pager Email: [email or web address] Patient: Claudia Estrella Procedure Information Date/Time: 05/02/25929 Procedure: Right heart cath Location: [facility] / [facility] (Cath) Providers: Rickey Jackson MD [...] products. Plan discussed with attending. Additional Equipment RequestsNormalUniversMemorial Health System Selby General HospitalB-TYPE NATRIURETIC PEPTIDEon 70-60-0338Pfsueftvcsc peptide B (Bld) [Mass/Vol]1236 pg/mL High0-100UnMadison HealthComment on above:Performed By: #### [id number] ####[facility] ([facility])[address] [facility] [place], [place] [address]EKCGX METABOLIC PANELon 27-89-9441Zovex gap [Moles/Vol]13 mmol/LNormal7-20UnMadison HealthComment on above:Performed By: #### [id number] #### [facility] ([facility]) [address] [place], [place] [address]Zjvafrc [Mass/Vol]8.6 mg/dLNormal8.6-10.3UnMadison HealthComment on above:Performed By: #### [id number] #### [facility] ([facility]) [address] [place], [place] [address]Ozyygzyw [Moles/Vol]108 mmol/HFprd33-557CqhpdljrwfMadison HealthComment on above:Performed By: #### [id number] #### [facility] ([facility]) [address] [place], [place] [address]MQ0 [Moles/Vol]21 mmol/ZIkvaog54-83ZdswudxlbzMadison HealthComment on above:Performed By: #### [id number] #### [facility] ([facility]) [address] [place] [address]Abazzxdkvp [Mass/Vol]2.77 mg/dLHigh0.60-1.20UnMadison HealthComment on above:Performed By: #### [id number] #### [facility] ([facility]) [address] [place], [place] [address]WRSCNADSDE FILTRATION RATE ML/MIN/1.73 SQ M.XGBIOPVLJ62.4 mL/min/1.73m*2Low>60.0UnMadison HealthComment on above:Result Comment: [facility]???s estimated glomerular filtration rate (eGFR) will [...] group of individuals.Performed By: #### [id number] #### [facility] ([facility]) [address] [place], [place] [address]Vwbimqq [Mass/Vol]147 mg/gIOjit75-104GyilpmeznaMadison HealthComment on above:Performed By: #### [id number] #### [facility] ([facility]) [address] [place], [place] [address]Njpmlqokj [Moles/Vol]3.9 mmol/LNormal3.5-5.1UnMadison HealthComment on above:Performed By: #### [id number] #### [facility] ([facility]) [address] [place], [place] [address]Ndkloe [Moles/Vol]138 mmol/FPmdxxg803-667ZmglgiowomMadison HealthComment on above:Performed By: #### [id number] #### [facility] ([facility]) [address] [place], [place] [address]Gpey nitrogen [Mass/Vol]60 mg/dLHigh7-25UnMadison HealthComment on above:Performed By: #### [id number] #### [facility] ([facility]) [address] [place], [place] [address]LAZA NITROGEN/CREATININE (MASS RATIO) IN SER/PLAS21.7Normal [facility] HospitalComment on above:Performed By: #### [id number] #### [facility] ([facility]) [address] [place], [place] [address]Dpngk gap [Moles/Vol]14 mmol/LNormal7-20UnMadison HealthComment on above:Performed By: #### [id number] #### [facility] ([facility]) [address] [place], [place] [address]Vcgxlgv [Mass/Vol]8.5 mg/dLLow8.6-10.3UnMadison HealthComment on above:Performed By: #### [id number] #### [facility] ([facility]) [address] [place], [place] [address]Dwtfalvm [Moles/Vol]106 mmol/OTgscwj11-661LecphwapuxMadison HealthComment on above:Performed By: #### [id number] #### [facility] ([facility]) [address] [place], [place] [address]NN[address] [Moles/Vol]21 mmol/GPhfcjg99-95NkfkyxezhcMadison HealthComment on above:Performed By: #### [id number] #### [facility] ([facility]) [address] [place], [place] [address]Mdynkbluqj [Mass/Vol]2.85 mg/dLHigh0.60-1.20UnMadison HealthComment on above:Performed By: #### [id number] #### [facility] ([facility]) [address] [place], [place] [address]DJORBLNBDT FILTRATION RATE ML/MIN/1.73 SQ M.AGAEUMGZH85.8 mL/min/1.73m*2Low>60.0UnMadison HealthComment on above:Result Comment: [facility]???s estimated glomerular filtration rate (eGFR) will [...] affect anyone group of individuals.Performed By: #### [id number] #### [facility] ([facility]) [address] [place] [address]Mcdnhsp [Mass/Vol]146 mg/dDWaaf47-685LzeufjxbzmMadison HealthComment on above:Performed By: #### [id number] #### [facility] ([facility]) [address] [place] [address]Lsespqfaj [Moles/Vol]3.9 mmol/LNormal3.5-5.1UnMadison HealthComment on above:Performed By: #### [id number] #### [facility] ([facility]) [address] [place] [address]Wxelhk [Moles/Vol]137 mmol/VUftlks493-824OygnlwbxjgMadison HealthComment on above:Performed By: #### [id number] #### [facility] ([facility]) [address] [place] [address]Wkaq nitrogen [Mass/Vol]58 mg/dLHigh7-25UnMadison HealthComment on above:Performed By: #### [id number] #### [facility] ([facility]) [address] [place] [address]HUIA NITROGEN/CREATININE (MASS RATIO) IN SER/PLAS20.4Normal [facility] HospitalComment on above:Performed By: #### [id number] #### [facility] ([facility]) [address] [place] [address]EKXdr 42-51-0059Wqdewamixbr distribution width (RBC) [Ratio]15.3 %High11.5-15.0UnMadison HealthComment on above:Performed By: #### [id number] #### [facility] ([facility]) [address] [place] [address]LGBKHMDEQSR MEAN CORPUSCULAR HEMOGLOBIN CONCENTRATION (G/DL) BY IVDNQIMYC22.5 g/zWMjwbor91.0-35.0UnMadison HealthComment on above:Performed By: #### [id number] #### [facility] ([facility]) [address] [place] [address]Ncktygrtpb (Bld) [Volume fraction]26.9 %Low36.0-45.0UnMadison HealthComment on above:Performed By: #### [id number] #### [facility] ([facility]) [address] [place] [address]Tsmvrliixb (Bld) [Mass/Vol]9.0 g/dLLow12.0-15.0UnMadison HealthComment on above:Performed By: #### [id number] #### [facility] ([facility]) [address] [place] [address]PTG (RBC) [Entitic mass]29.6 wfHjzmrn81.0-33.0UnMadison HealthComment on above:Performed By: #### [id number] #### [facility] ([facility]) [address] [place] [address]PAJ (RBC) [Entitic vol]88.5 vCHpxgnd12.0-98.0UnMadison HealthComment on above:Performed By: #### [id number] #### [facility] ([facility]) [address] [place] [address]QNIEORWNI (10*3/UL) IN BLOOD AUTOMATED [id number] 10*3/uLNormal 150-400UnMadison HealthComment on above:Performed By: #### [id number] #### [facility] ([facility]) [address] [place] [address]GBX (Bld) [#/Vol]3.04 10*6/uLLow3.80-5.00UnMadison HealthComment on above:Performed By: #### [id number] #### [facility] ([facility]) [address] [place] [address]ESM (Bld) [#/Vol]10.61 10*3/uLHigh4.00-10.60UnMadison HealthComment on above:Performed By: #### [id number] #### [facility] ([facility]) [address] [place] [address]Uymqbktkahg distribution width (RBC) [Ratio]15.3 %High11.5-15.0 [facility] HospitalComment on above:Performed By: #### [id number] #### [facility] ([facility]) [address] [place] [address]LLFRVZYWAZS MEAN CORPUSCULAR HEMOGLOBIN CONCENTRATION (G/DL) BY BFPUCRRNW93.6 g/bOMbbuqi99.0-35.0UnMadison HealthComment on above:Performed By: #### [id number] #### [facility] ([facility]) [address] [place] [address]Ouixzjhmer (Bld) [Volume fraction]26.1 %Low36.0-45.0UnMadison HealthComment on above:Performed By: #### [id number] #### [facility] ([facility]) [address] [place] [address]Hebseljzsa (Bld) [Mass/Vol]8.5 g/dLLow12.0-15.0UnMadison HealthComment on above:Performed By: #### [id number] #### [facility] ([facility]) [address] [place] [address]LKO (RBC) [Entitic mass]29.0 acApktyp83.0-33.0UnMadison HealthComment on above:Performed By: #### [id number] #### [facility] ([facility]) [address] [facility] [place], [place] [address]DDD (RBC) [Entitic vol]89.1 sDNdkqru21.0-98.0UnMadison HealthComment on above:Performed By: #### [id number] #### [facility] ([facility]) [address] [facility] [place], [place] [address]LHAYWMBJT (10*3/UL) IN BLOOD AUTOMATED [id number] 10*3/uLNormal 150-400UnMadison HealthComment on above:Performed By: #### [id number] #### [facility] ([facility]) [address] [place], [place] [address]MCL (Bld) [#/Vol]2.93 10*6/uLLow3.80-5.00UnMadison HealthComment on above:Performed By: #### [id number] #### [facility] ([facility]) [address] [place], [place] [address]KDE (Bld) [#/Vol]10.31 10*3/uLNormal4.00-10.60UnMadison HealthComment on above:Performed By: #### [id number] #### [facility] ([facility]) [address] [place], [place] [address]OECMXWWas 59-36-1705KFRMQAOEulsg Nutrition Assessment: Name: Claudia Estrella Date: 1950 Date of Visit: 05/02/25 Admission Dx: Acute on chronic heart failure with preserved ejection fraction (HFpEF) (CMS/[facility]) [I50.33] Reason for assessment: high risk (po [...] 05/02/2025545 CREATININE 2.77 (H) 05/02/202546 NA 138 05/02/202546 K 3.9 05/02/2025545 PHOS 4.4 07/18/2020 0404 MG 2.1 05/02/2025 0024 HGB 9.0 (L) 05/02/2025545 HGB 7.5 (L) 07/13/2020 1142 WBC 10.61 [...] Independently feeds self Good access to food [employer] Skin Integrity: Intact Edema: BLE +1 Other [...] 05/02/25 1218 Special Kitchen Request Once Comments: Kyrgyz toast, chocolate milk and grapes 05/02/25 1237 [...] and nikhil henry, moiz food cake 05/01/25 1826 Nutrition Risk: Moderate Nutrition Needs: Needs based on: ideal body weight (40.9 kg) Calorie needs: 0545-8765 kcals/day based on 25-30 kcal/kg Protein needs: [...] of Nutrition and Dietetics (AND) and the [place] Society of Enteral and Parenteral Nutrition (ASPEN). [...] to diet recommendations No (more content not included)...[place] CONSULT Attestation with edits by Karthik Fish [...] be an additional personal documentation from me. Karhtik Fish MD Cardiology Consult Note Reason for Consult: CHF Exacerbation HPI: Claudia Estrella is a 75 y.o. female with a past medical history notable for hypertension, HFpEF, CAD s/p CABG 2020, hyperlipidemia, CKD 4, and diabetes who presents from [facility] cardiology clinic due to worsening dyspnea [...] medical history of CHF (congestive heart failure) (CMS/[facility]), Chronic kidney disease, Coronary artery disease, Diabetes mellitus (CMS/HCC), and Hypertension. Surgical History She has a [...] times daily ergocalciferol (Vitamin D-2) 1.25 MG (58200 UT) capsule 1 capsule, Weekly ferrous sulfate [...] Prescriptions Prior to Admission[1] (more content not included)...NormalUnMadison HealthFERRITIN on 74-86-1246RRQVLCLC (NG/ML) IN SER/BLBX732.0 ng/dWKywecn92.0-307.0UnMadison HealthComment on above:Performed By: #### [id number] ####[facility] (BEAKER)[address] [place], [place] [address]AESAAQyj 94-98-2688BQZARY (NG/ML) IN SER/PLAS18.26 ng/mLNormal6.6-1000[facility] Comment on above:Performed By: #### [id number] #### [facility] (BEERIKA) [address] [place] [address]CVbz 78-57-8849HT Attestation signed by Rickey Jackson MD at 05/02/2025 11:12 AM Rickey Jackson MD, MPH, [facility], [facility], [facility] Interventional Cardiology Pager Email: [email or web address] She is a 74-year-old woman with prior history of hypertension, diabetes and 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 H&P reviewed. The patient was examined and there are no changes to the H&P. NormalUnMadison HealthIRON AND TIBCon 78-31-9724WTUS (UG/DL) IN SER/PLAS53 ug/gUAglhpw26-909OpdzgpfjqyMadison HealthComment on above:Performed By: #### [id number] ####[facility] (Runrun.itERIKA)[address] [place] [address]MDKJ BINDING CAPACITY (UG/DL) IN SER/HQQS442 ug/uXFff944-534 [facility] HospitalComment on above:Performed By: #### [id number] ####[facility] (GTx)[address] [place] [address]GXBK BINDING CAPACITY.UNSATURATED (UG/DL) IN SER/WCHF060.0 ug/jMEsxgkz267.0-355.0UnMadison HealthComment on above:Performed By: #### [id number] ####[facility] ([facility])[address] [place] [address]AXUQ SATURATION (%) IN SER/PLAS23 %Pvkofz22-17KyxkbtnximMadison HealthComment on above: Performed By: #### [id number] ####[facility] ([facility])[address] [place] [address]TZPQAQUGTrm 13-54-5698Anfdnqmab [Mass/Vol]2.1 mg/dLNormal 1.9-2.7UnMadison HealthComment on above:Performed By: #### [id number] #### [facility] ([facility]) [address] [place] [address]RAZM GLUCOSE METER UNSOLICITED RESULTSon 61-55-4909Ehhmbet [Mass/Vol]212 mg/rIUzba83-180IdwkfrejetMadison HealthComment on above:Order Comment: Waived Testing in the ED is performed under the ED CLIA certificate #[id number].Result Comment: sbhszxw6Pkkmttalj By: #### [id number] #### [facility] ([facility]) [address] [place] [address]Pazprgy [Mass/Vol]199 mg/lYYhgh25-735RjfqqrlfnxMadison HealthComment on above:Order Comment: Waived Testing in the ED is performed under the ED CLIA certificate #[id number].Result Comment: asavill Performed By: #### [id number] #### [facility] ([facility]) [address] [place], [place] [address]Vbrnjxd [Mass/Vol]158 mg/qRRehm50-215PxbgdwkvpuMadison HealthComment on above:Order Comment: Waived Testing in the ED is performed under the ED CLIA certificate #[id number].Result Comment: [email or web address] Performed By: #### [id number] ####[facility] ([facility])[address] [place] [address]PIFIYOMTXBUS PANELon 20-18-5691ECXLZLPWBG (PG) IN AITSSALTCADPZ67.9 huGbsbzk25.0-36.0UnMadison HealthComment on above:Performed By: #### [id number] ####[facility] ([facility])[address] [place] [address]CJTFAOMR RETICULOCYTE FRACTION (%)22.4 %High2-16UnMadison HealthComment on above:Performed By: #### [id number] ####[facility] ([facility])[address] [place] [address]MZGYKUFGIURIN (10*6/UL) IN BLOOD0.1054 10*6/uLHigh0.0250-0.1000UnMadison Health Comment on above:Performed By: #### [id number] ####[facility] ([facility])[address] [place] [address]Hlrxihcvqauab/100 RBC (Bld)3.50 %High0.50-1.80 [facility] HospitalComment on above:Performed By: #### [id number] ####[facility] ([facility])[address] [place] [address]ZUF8 REFLEX TO FT4on 29-12-7453XUFSWXQGNHW (MIU/L) IN SER/PLAS BY DETECTION LIMIT <= 0.05 MIU/L 4.54 mIU/LNormal0.34-5.60UnMadison HealthComment on above: Performed By: #### [id number] #### [facility] ([facility]) [address] [place] [address]WNKXUMG B12on 79-41-6775Vsnxoitta (Vitamin B12) [Mass/Vol]424 pg/yRBatyzq755-460KuxkxdsctgMadison HealthComment on above:Result Comment: REFERENCE RANGES: 180-914 pg/mL Normal 145-179 pg/mL Indeterminate <145 pg/mL DeficientPerformed By: #### [id number] #### [facility] (BEAKER) [address] [place], [place] [address]Plbqiq Visiton 48-83-6917Tbsgqf-up [id number] SameerAmrik mastness Conklin 1950 F Date Provider Department Center 05/01/2025 166-DEACON TO CARD [facility] Family History Problem Relation Age of Onset Heart attack Mother Heart failure Mother Heart attack Father Family Status - Relation Status Age at Mother Father Level of Service:97387 [place] OFFICE/OUTPATIENT ESTABLISHED HIGH [facility] 40 MIN Reason for Visit and Comments: Follow-up [343715] - Patient is here today for a 2 week follow up. Patient states she is not doing well, Patient is very SOB. Patient has been unable to eat, and vomiting up her medication. Patient states when she exhales she hears a whistling. Coronary Artery Disease [187] Congestive Heart Failure [127] Hypertension [858403] Heart Murmur [124] Hyperlipidemia [182] Shortness of Breath [063228] - SOB/MCALLISTER increased over the last 3 to 4 days. Patient pulse ox at home has been 84 with movement and 94 with sitting. Patient is unable to lay flat to sleep using 4 pillows. Fatigue [46] - Greatly increased Edema [3151644731] - Bilateral leg and abdominal swelling Chest Pain [113033] - Patient has been using dee for chest and back pain. 3 different times. Patient states it relieved chest and back pain Cough [28] - IncreasedNormalUniversity of [facility]acogdoches Memorial [facility]36on [place] back from Dr. Jenkins's office and he is ok with change in Bumex dose per Dalia To. 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 If she is thinking she may have fluid retention would like nephro's input on bumex dosing. She could benefit from a sleep study. Can also consider a 6 minute walk test, but if oxygen is needed this will need to come from PCP or pulmonary. Thank EugeniaCleveland Clinic Mentor HospitalErythrocyte distribution width Auto (RBC) [Ratio]Ordered By: Geneva Jenkins on 78-66-0515Zgijitsmlta distribution width (RBC) [Ratio]14.6 %11.0-15.0[facility] TownshipGlomerular filtration rate (GFR) estimation in non- AmericanOrdered By: Geneva Jenkins on 00-21-6075DPP/1.73 sq M.predicted among non-blacks MDRD (S/P/Bld) [Vol rate/Area]18 mL/min/{1.73_m2}Low>=60 mL/min/1.73m 2FPremier Health Miami Valley Hospital NorthHematocrit Auto (Bld) [Volume fraction]Ordered By: Geneva Jenkins on 67-47-2895Nyvxfqivjk (Bld) [Volume fraction]31.7 %Low36.0-48.0[facility] TownshipHemoglobin [Mass/volume] in BloodOrdered By: Geneva Jenkins on 26-97-7699Pdvhsgtwof (Bld) [Mass/Vol]10.4 g/dLLow12.0-16.0[facility] TownshipIron binding capacity [Mass/volume] in Serum or PlasmaOrdered By: Geneva Jenkins on 08-38-3566Agum binding capacity [Mass/Vol]247.0 ug/dLLow 250.0-450.0[facility] TownshipIron saturation [Mass Fraction] in Serum or PlasmaOrdered By: Geneva Jenkins on 35-47-2428Noin saturation [Mass fraction]21.9 %[facility] TownshipLaboratory - Chemistry and Chemistry - challengeOrdered By: Geneva Jenkins on 49-64-5953Bnlhmpo [Mass/Vol]3.7 g/dL3.4-5.0[facility] TownshipCalcium [Mass/Vol]9.1 mg/dL8.5-10.1 [facility] TownshipChloride [Moles/Vol]102 mmol/P43-499DwkthkzqcKettering Health Washington TownshipCO2 [Moles/Vol]23.4 mmol/L21.0-32.0[facility] TownshipCreatinine [Mass/Vol]2.63 mg/dLHigh0.55-1.02[facility] TownshipFerritin [Mass/Vol]220.0 ng/mL8.0-252.0[facility] TownshipGFR/1.73 sq M.predicted MDRD (S/P/Bld) [Vol rate/Area]22 mL/min/{1.73_m2} Low>=60 mL/min/1.73m 2FPremier Health Miami Valley Hospital NorthGlucose [Mass/Vol]182 mg/dTUsfk78-036AbftwojbiKettering Health Washington TownshipIron [Mass/Vol]54.0 ug/dL 50.0-170.0[facility] TownshipMagnesium [Mass/Vol]2.4 mg/dL1.8-2.4 [facility] TownshipPotassium [Moles/Vol]3.6 mmol/L3.5-5.1FRegional Medical Centerodium [Moles/Vol]134 mmol/DQet346-789GgyhevtjdKettering Health Washington TownshipUrate [Mass/Vol]5.0 mg/dL2.6-6.0[facility] Urea nitrogen [Mass/Vol]56.0 mg/dLHigh7.0-18.0[facility] Urea nitrogen/Creatinine [Mass ratio]21.3 mg/mgKettering Health Washington Township Bilirubin Ql (U)NegativeNEGATIVEK[facility]tering Health Washington TownshipGlucose (U) [Mass/Vol]NegativeNEGATIVEKettering Health Washington TownshipKetones Ql (U) NegativeNEGATIVEKettering Health Washington TownshippH (U)6.0 [pH]5.0-9.0Mercy Healthpecific gravity (U) [Rel density]1.0201.005-1.025 [facility] TownshipUrobilinogen Qn (U)0.2 {Kelly'U}/dL0.2-1.0 [facility] TownshipLaboratory - Specimen informationOrdered By: Geneva Jenkins on 83-09-1191Vglezaljdi (U)CLEARCLEARFPremier Health Miami Valley Hospital NorthColor (U)LT. YELLOWYELLOWKettering Health Washington TownshipLaboratory - UrinalysisOrdered By: Geneva Jenkins on 74-50-4963Ybkpbopra esterase Test strip Ql (U)SMALLAbnormalNEGATIVEKettering Health Washington TownshipMucus Ql (Urine sed) NONE SEENNONE SEENKettering Health Washington TownshipNitrite Ql (U)Negative NEGATIVEKettering Health Washington TownshipProtein (U) [Mass/Vol]317.2 mg/dLHigh <=11.9[facility] TownshipProtein Ql (U)>=300 mg/dLAbnormal NEG/TRACEKettering Health Washington TownshipLeukocytes [#/volume] corrected for nucleated erythrocytes in Blood by Automated counOrdered By: Geneva Jenkins on 41-76-6762QCP corrected for nucl RBC Auto (Bld) [#/Vol]11.0 10 3/uL4.0-11.0 [facility] HospitalH Auto (RBC) [Entitic mass]Ordered By: Geneva Jenkins on 44-87-0811HDF (RBC) [Entitic mass]29.5 pg26.7-34.0[facility] City HospitalHC Auto (RBC) [Mass/Vol]Ordered By: Geneva Jenkins on 04-18-2025 MCHC (RBC) [Mass/Vol]32.8 g/dL29.9-35.2FPremier Health Miami Valley Hospital NorthMCV Auto (RBC) [Entitic vol]Ordered By: Geneva Jenkins on 95-01-0522BLA (RBC) [Entitic vol] 89.8 fL81.0-99.0[facility] TownshipNo Panel InformationOrdered By: Geneva Jenkins on 083126-Qfzqjdw Vitamin D Total58.2 ng/mLKettering Health Washington TownshipComment on above:<20 ng/mL Vit D owsfzgrke24-<30 ng/mL Vit D hkpkgsxoenoi90-693 ng/mL Vit D sufficient>100 ng/mL Potential Toxicity Parathyroid Hormone (Intact)62 pg/zD53-53ZvigfblcaKettering Health Washington Township Comment on above:Performed at: - [facility] [address] [id number] Director: Curry Rizzo PhD, Phone: [phone] Level 4.6 mg/dL2.6-4.7FPremier Health Miami Valley Hospital NorthUrine BacteriaMODERATE #/HPF AbnormalNONE [facility] GeneralUrine Occult BloodSMALL AbnormalNEGATIVEKettering Health Washington TownshipUrine Other CastsNONE SEEN #/LPFNONE [facility] GeneralUrine Other CrystalsNone Seen #/HPFNone [facility] HospitalUrine Random Hlvdtsjjzx07.88 mg/dL20.00-300.00[facility] TownshipUrine RBC5-10 #/HPFAbnormal0-2 [facility] TownshipUrine Squamous Epithelial CellsFEW #/LPF AbnormalNONE/RAREKettering Health Washington TownshipUrine WBC5-10 #/HPFAbnormal NONE [facility] GeneralPlatelet mean volume Auto (Bld) [Entitic vol]Ordered By: Geneva Jenkins on 69-86-7382Nkvkdfqy mean volume (Bld) [Entitic vol]11.1 fL9.5-13.5FPremier Health Miami Valley Hospital NorthPlatelets Auto (Bld) [#/Vol]Ordered By: Geneva Murillor on 25-96-8136Yyyzdrsod (Bld) [#/Vol]191 10 3/uM885-615IlgslrrnnKettering Health Washington TownshipRBC Auto (Bld) [#/Vol]Ordered By: Geneva Dicksondir on 87-55-8816XDT (Bld) [#/Vol]3.53 10 6/uLLow4.20-5.40Mercy Healtherum or plasma anion gap determinationOrdered By: Geneva Jenkins on 19-32-7628Plivx gap [Moles/Vol]12.2 mmol/LFPremier Health Miami Valley Hospital NorthUrine protein/creatinine ratioOrdered By: Geneva Jenkins on 04-18-2025 Protein/Creatinine (U) [Ratio]4.07[facility]37on *Will have her go back up to 75mg BID for HTN management. *Increase bumex to 2mg BID. *Have weekly labs to follow-up on kidney functionNormalUniAshtabula County Medical CenterOffice Visiton 68-75-5341Sopsfx-up [id number] Claudia Estrella 1950 F Date Provider Department Center 04/15/2025 166-DEACON TO ADY [facility] Family History Problem Relation Age of Onset Heart attack Mother Heart failure Mother Heart attack Father Family Status - Relation Status Age at Mother Father Level of Service:54601 [place] OFFICE/OUTPATIENT ESTABLISHED MOD MDM 30 MIN Reason for Visit and Comments: Follow-up [453186] - Patient is here today for a follow up [facility] admission. Patient states she feels better but not great. Patient states the Hospitalist changed her medications and cut her bumex in half, changed her potassium to 1 a day. Coronary Artery Disease [187] Hypertension [347607] Hyperlipidemia [182] Congestive Heart Failure [127] Heart Murmur [124] stage 4 kidney disease [Other] Shortness of Breath [723804] - MCALLISTER.NormalUnMadison Health Orders Onlyon 79-88-3030Mawwzt [id number] Claudia Estrella 1950 F Date Provider Department Center 04/10/2025 [id number], HISTORICAL ADY [facility] Family History Problem Relation Age of Onset Heart attack Mother Heart failure Mother Heart attack Father Family Status - Relation Status Age at Mother Father DeceasedNormalUniversMemorial Health System Selby General HospitalHPon 25-64-5458YPFN Cardiology - [facility] Subjective Claudia Estrella is a 74 [...] warm and dry. Neurologi (more content not included)...NormalUnMadison HealthOffice Visiton 36-74-9151Pidyha-up [id number] Claudia Estrella 1950 F Date Provider Department Center 04/07/2025 KARTHIK MACKAY ADY [facility] Family History Problem Relation Age of Onset Heart attack Mother Heart failure Mother Heart attack Father Family Status - Relation Status Age at Mother Father Level of Service:08269 [place] OFFICE/OUTPATIENT ESTABLISHED MOD MDM 30 [facility] HospitalErythrocyte distribution width Auto (RBC) [Ratio]Ordered By: Geneva Jenkins on 04-91-9853Qbrboqfklhi distribution width (RBC) [Ratio]13.7 %11.0-15.0[facility] TownshipEstimated glomerular filtration rate (GFR) non- AmericanOrdered By: Geneva Jenkins on 01-20-2025 GFR/1.73 sq M.predicted among non-blacks MDRD (S/P/Bld) [Vol rate/Area]20 mL/min/{1.73_m2}Low>=60 mL/min/1.73m 2FPremier Health Miami Valley Hospital North Hematocrit Auto (Bld) [Volume fraction]Ordered By: Geneva Jenkins on 01-20-2025 Hematocrit (Bld) [Volume fraction]32.6 %Low36.0-48.0[facility] TownshipHemoglobin [Mass/volume] in BloodOrdered By: Geneva Jenkins on 01-20-2025 Hemoglobin (Bld) [Mass/Vol]11.1 g/dLLow12.0-16.0[facility] TownshipIron binding capacity [Mass/volume] in Serum or PlasmaOrdered By: Geneva Jenkins on 06-34-0566Gnfs binding capacity [Mass/Vol]279.0 ug/dL250.0-450.0 [facility] TownshipIron saturation [Mass Fraction] in Serum or PlasmaOrdered By: Geneva Jenkins on 07-54-6197Nlgz saturation [Mass fraction]17.9 % [facility] TownshipLaboratory - Chemistry and Chemistry - challengeOrdered By: Geneva Jenkins on 24-87-4830Rzcyucd [Mass/Vol]3.2 g/dLLow 3.4-5.0[facility] TownshipCalcium [Mass/Vol]9.2 mg/dL8.5-10.1 [facility] TownshipChloride [Moles/Vol]105 mmol/H09-552RawbcmahsKettering Health Washington TownshipCO2 [Moles/Vol]25.4 mmol/L21.0-32.0[facility] TownshipCreatinine [Mass/Vol]2.33 mg/dLHigh0.55-1.02[facility] TownshipGFR/1.73 sq M.predicted MDRD (S/P/Bld) [Vol rate/Area]25 mL/min/{1.73_m2}Low>=60 mL/min/1.73m 2FPremier Health Miami Valley Hospital NorthGlucose [Mass/Vol]158 mg/gCZwyu43-975PvicqjmmhKettering Health Washington TownshipIron [Mass/Vol] 50.0 ug/dL50.0-170.0[facility] TownshipMagnesium [Mass/Vol]2.1 mg/dL1.8-2.4FPremier Health Miami Valley Hospital NorthPotassium [Moles/Vol]4.2 mmol/L 3.5-5.1FRegional Medical Centerodium [Moles/Vol]142 mmol/V031-490 [facility] TownshipUrate [Mass/Vol]5.4 mg/dL2.6-6.0[facility] TownshipUrea nitrogen [Mass/Vol]50.0 mg/dLHigh7.0-18.0[facility] TownshipUrea nitrogen/Creatinine [Mass ratio]21.5 mg/mgKettering Health Washington TownshipBilirubin Ql (U)NegativeNEGMercy Health St. Anne HospitalGlucose (U) [Mass/Vol]NegativeNEGMercy Health St. Anne HospitalKetones Ql (U)NegativeNEGMercy Health St. Anne HospitalpH (U)6.0 [pH]5.0-9.0Mercy Healthpecific gravity (U) [Rel density] 1.0201.005-1.025[facility] TownshipUrobilinogen Qn (U)0.2 {Kelly'U}/dL0.2-1.0[facility] TownshipLaboratory - Specimen informationOrdered By: Geneva Jenkins on 69-89-0381Axodtvmnms (U)CLEARCLEAR [facility] TownshipColor (U)LT. YELLOWYELLOWKettering Health Washington TownshipLaboratory - UrinalysisOrdered By: Geneva Jenkins on 01-20-2025 Leukocyte esterase Test strip Ql (U)TRACEAbnormalNEGMercy Health St. Anne HospitalMucus Ql (Urine sed)TRACEAbnormalNONE SEENKettering Health Washington TownshipNitrite Ql (U)NegativeNEGMercy Health St. Anne Hospital Protein (U) [Mass/Vol]167.6 mg/dLHigh<=11.9[facility] Protein Ql (U)>=300 mg/dLAbnormalNEG/TRACEK[facility]tering Health [facility] Township Leukocytes [#/volume] corrected for nucleated erythrocytes in Blood by Automated counOrdered By: Geneva Jenkins on 89-20-6015ULI corrected for nucl RBC Auto (Bld) [#/Vol]9.0 10 3/uL4.0-11.0[facility] Auto (RBC) [Entitic mass]Ordered By: Geneva Jenkins on 48-10-9754VYB (RBC) [Entitic mass]29.8 pg26.7-34.0[facility] City HospitalHC Auto (RBC) [Mass/Vol]Ordered By: Geneva Jenkins on 13-85-4435LOCJ (RBC) [Mass/Vol]34.0 g/dL29.9-35.2FThe MetroHealth SystemV Auto (RBC) [Entitic vol]Ordered By: Geneva Jenkins on 07-98-8778TGM (RBC) [Entitic vol]87.4 fL81.0-99.0[facility] TownshipNo Panel InformationOrdered By: Geneva Jenkins on 458312-Pucugro Vitamin D Total46.0 ng/mLKettering Health Washington TownshipComment on above:<20 ng/mL Vit D wphzbejuh01-<30 ng/mL Vit D hcvanexojzpz83-576 ng/mL Vit D sufficient>100 ng/mL Potential ToxicityMiscellaneous TestCOMMENT.[facility] TownshipComment on above:Test Ordered: 021208 FerritinFerritin 153 [H ] ng/mL Reference Range: 15-150Performed at: [employer] [id number] Director: Curry Rizzo PhD, Phone: [phone] Hormone (Intact)58 pg/fU52-45AoxfmgutdKettering Health Washington TownshipComment on above:Performed at: - [employer] [id number] Director: Curry Rizzo PhD, Phone: [phone] Phosphorus Level4.6 mg/dL2.6-4.7FPremier Health Miami Valley Hospital NorthUrine Bacteria TRACE #/HPFAbnormalNONE [facility] GeneralUrine Occult Blood TRACE-INEGATIVEKettering Health Washington TownshipUrine Other CastsNONE SEEN #/LPF NONE [facility] GeneralUrine Other CrystalsNone Seen #/HPF None [facility] HospitalUrine Random Csrptjrkua55.76 mg/dL 20.00-300.00[facility] TownshipUrine RBC2-5 #/HPFAbnormal0-2 [facility] TownshipUrine Squamous Epithelial CellsFEW #/LPF AbnormalNONE/RAREKettering Health Washington TownshipUrine WBC0-2 #/HPFAbnormalNONE [facility] GeneralPlatelet mean volume Auto (Bld) [Entitic vol]Ordered By: Geneva Jenkins on 10-73-8561Dhlnfnen mean volume (Bld) [Entitic vol]10.6 fL9.5-13.5FPremier Health Miami Valley Hospital NorthPlatelets Auto (Bld) [#/Vol] Ordered By: Geneva Jenkins on 72-33-7944Pzncwdrmz (Bld) [#/Vol]177 10 3/jN312-128 [facility] TownshipRBC Auto (Bld) [#/Vol]Ordered By: Geneva Mary Grace on 49-77-2169OXZ (Bld) [#/Vol]3.73 10 6/uLLow4.20-5.40Mercy Healtherum or plasma anion gap determinationOrdered By: Geneva Jenkins on 04-69-9426Bcmpf gap [Moles/Vol]15.8 mmol/LFPremier Health Miami Valley Hospital NorthUrine protein/creatinine ratioOrdered By: Geneva Jenkins on 11-26-8391Xlxnuaa/Creatinine (U) [Ratio]5.45[facility] TownshipPerimetry studyon 11-26-2024 [facility] HealthcareRadiology Study observation (narrative)[facility] Jnmnvzfxzw34bv 99-72-262894Hpinkycyp echo result from 10/04/2024: MD Michelle Tan MA Please tell her the echo showed normal cardiac function with evidence of extra fluid in the body. Depending on symptoms of shortness of breath, she can take extra 0.5 tablet of bumex on as needed basis. Follow up as planned. Patient informed. She verbalized understanding.NormalOhio State East HospitalOffice Visiton 59-15-4899Nautjz-up [id number] Claudia Estrella 1950 F Date Provider Department Center 09/16/2024 KARTHIK MACKAY ADY [facility] Family History Problem Relation Age of Onset Heart attack Mother Heart failure Mother Heart attack Father Family Status - Relation Status Age at Mother Father Level of Service:35392 [place] OFFICE/OUTPATIENT ESTABLISHED MOD MDM 30 [facility] HospitalErythrocyte distribution width Auto (RBC) [Ratio]on 60-59-2189Xegahjtijju distribution width (RBC) [Ratio]Erythrocyte distribution width [Ratio] by Automated count11.0-15.0[facility] TownshipEstimated glomerular filtration rate (GFR) non- Americanon 29-79-6510GLR/1.73 sq M.predicted among non-blacks MDRD (S/P/Bld) [Vol rate/Area]Estimated glomerular filtration rate (GFR) non- AmericanLow>=60 mL/min/1.73m 2FPremier Health Miami Valley Hospital NorthHematocrit Auto (Bld) [Volume fraction]on 48-40-1466Obvyipbdxl (Bld) [Volume fraction]Hematocrit [Volume Fraction] of Blood by Automated qzrhwCgv86.0-48.0[facility] TownshipHemoglobin [Mass/volume] in Bloodon 17-99-7623Akvhcksbvb (Bld) [Mass/Vol] Hemoglobin [Mass/volume] in RofifYsb54.0-16.0[facility] Iron binding capacity [Mass/volume] in Serum or Plasmaon 77-46-5037Vwqp binding capacity [Mass/Vol]Iron binding capacity [Mass/volume] in Serum or PlasmaLow 250.0-450.0[facility] TownshipIron saturation [Mass Fraction] in Serum or Plasmaon 98-44-7061Xfmw saturation [Mass fraction]Iron saturation [Mass Fraction] in Serum or PlasmaKettering Health Washington TownshipLaboratory - Chemistry and Chemistry - challengeon 63-62-9970Mykzdwa [Mass/Vol]3.4 g/dL 3.4-5.0[facility] TownshipCalcium [Mass/Vol]9.3 mg/dL8.5-10.1 [facility] TownshipChloride [Moles/Vol]100 mmol/W29-819MmpiqiboeKettering Health Washington TownshipCO2 [Moles/Vol]28.1 mmol/L21.0-32.0[facility] TownshipCreatinine [Mass/Vol]2.44 mg/dLHigh0.55-1.02[facility] TownshipFerritin [Mass/Vol]145.0 ng/mL8.0-252.0[facility] TownshipGFR/1.73 sq M.predicted MDRD (S/P/Bld) [Vol rate/Area]24 mL/min/{1.73_m2} Low>=60 mL/min/1.73m 2FPremier Health Miami Valley Hospital NorthGlucose [Mass/Vol]162 mg/hQTwjv79-686PamykxfmcKettering Health Washington TownshipIron [Mass/Vol]53.0 ug/dL 50.0-170.0[facility] TownshipMagnesium [Mass/Vol]2.0 mg/dL1.8-2.4 [facility] TownshipPotassium [Moles/Vol]3.2 mmol/LLow3.5-5.1 [facility] Healthodium [Moles/Vol]140 mmol/O193-249QeizzzpsfKettering Health Washington TownshipUrate [Mass/Vol]6.3 mg/dLHigh2.6-6.0[facility] TownshipUrea nitrogen [Mass/Vol]46.0 mg/dLHigh7.0-18.0[facility] TownshipUrea nitrogen/Creatinine [Mass ratio]18.9 mg/mgKettering Health Washington TownshipLaboratory - Urinalysison 50-27-5161Cwqxivu (U) [Mass/Vol]197.4 mg/dLHigh<=11.9[facility] TownshipLeukocytes [#/volume] corrected for nucleated erythrocytes in Blood by Automated counon 81-89-5231KSX corrected for nucl RBC Auto (Bld) [#/Vol]Leukocytes [#/volume] corrected for nucleated erythrocytes in Blood by Automated coun4.0-11.0[facility] MCH Auto (RBC) [Entitic mass]on 96-04-3068OTB (RBC) [Entitic mass]MCH [Entitic mass] by Automated count26.7-34.0[facility] TownshipMCHC Auto (RBC) [Mass/Vol]on 72-34-5324JMQN (RBC) [Mass/Vol]MCHC [Mass/volume] by Automated count29.9-35.2FPremier Health Miami Valley Hospital NorthMCV Auto (RBC) [Entitic vol]on 63-81-1305KFW (RBC) [Entitic vol]MCV [Entitic volume] by Automated count 81.0-99.0[facility] TownshipNo Panel Informationon - Hydroxy Vitamin D Total51.6 ng/mLKettering Health Washington TownshipComment on above:<20 ng/mL Vit D qxyipqvac22-<30 ng/mL Vit D nnvarvcxoqxc76-974 ng/mL Vit D sufficient>100 ng/mL Potential ToxicityParathyroid Hormone (Intact)78 pg/mL Jcuyxbxy63-99NqqccuaawKettering Health Washington TownshipComment on above:Performed at: lucier[place] - [facility] [place] [id number] Director: Curry Rizzo PhD, Phone: [phone] Level5.4 mg/dLHigh2.6-4.7FPremier Health Miami Valley Hospital NorthUrine Random Ggjwlkbvqv02.10 mg/dL20.00-300.00[facility] TownshipPlatelet mean volume Auto (Bld) [Entitic vol]on 10-83-1102Jqamoywc mean volume (Bld) [Entitic vol]Platelet mean volume [Entitic volume] in Blood by Automated count9.5-13.5FPremier Health [facility] North Platelets Auto (Bld) [#/Vol]on 66-75-3631Trhmmkwdu (Bld) [#/Vol]Platelets [#/volume] in Blood by Automated ueffi591-410JddwfvkfaKettering Health Washington Township RBC Auto (Bld) [#/Vol]on 32-79-5870WRI (Bld) [#/Vol]Erythrocytes [#/volume] in Blood by Automated countLow4.20-5.40Mercy Healtherum or plasma anion gap determinationon 56-66-8177Uuvqo gap [Moles/Vol]Serum or plasma anion gap determinationKettering Health Washington TownshipUrine protein/creatinine ratioon 05-91-2408Frbgkhl/Creatinine (U) [Ratio]Urine protein/creatinine ratio [facility] TownshipOphthalmic OCT panelon 90-20-5040BQGKKindred Hospital Eye Images reviewed and comparison made to baseline, Images reviewed. To assess optic nerve function and for use in future follow-up. Reliability: good and adequate. Left Eye Images reviewed and comparison made to baseline, Images reviewed. To assess optic nerve function and for use in future follow-up. Reliability: good and adequate. Notes Superior nerve fiber layer (NFL) thinning both eyes (OU). Stable.[facility] HealthcareRadiology Study observation (narrative)[facility] MedicineOptical coherence tomography study reporton 90-99-2460UUOIPending sale to [facility] Radiology Study observation (narrative)[facility] MedicineErythrocyte distribution width Auto (RBC) [Ratio]on 48-50-0965Dmykatqquuy distribution width (RBC) [Ratio]Erythrocyte distribution width [Ratio] by Automated ubzjzLsgj09.0-15.0 [facility] TownshipEstimated glomerular filtration rate (GFR) non- Americanon 65-51-0507VWT/1.73 sq M.predicted among non-blacks MDRD (S/P/Bld) [Vol rate/Area]Estimated glomerular filtration rate (GFR) non- AmericanLow>=60 mL/min/1.73m 2FPremier Health Miami Valley Hospital NorthHematocrit Auto (Bld) [Volume fraction]on 57-96-0770Wwkzqjftzx (Bld) [Volume fraction]Hematocrit [Volume Fraction] of Blood by Automated lrxvkXkk78.0-48.0[facility] TownshipHemoglobin [Mass/volume] in Bloodon 02-67-8262Xqkhdgromz (Bld) [Mass/Vol]Hemoglobin [Mass/volume] in WepgfWgn25.0-16.0[facility] TownshipIron binding capacity [Mass/volume] in Serum or Plasmaon 00-91-2325Qhcv binding capacity [Mass/Vol]Iron binding capacity [Mass/volume] in Serum or Osiswz389.0-450.0[facility] TownshipIron saturation [Mass Fraction] in Serum or Plasmaon 15-96-2695Ljpg saturation [Mass fraction] Iron saturation [Mass Fraction] in Serum or PlasmaKettering Health Washington TownshipLaboratory - Chemistry and Chemistry - challengeon 56-51-0375Bvwxhqu [Mass/Vol]3.3 g/dLLow3.4-5.0[facility] TownshipCalcium [Mass/Vol] 9.2 mg/dL8.5-10.1FPremier Health Miami Valley Hospital NorthChloride [Moles/Vol]103 mmol/L 98-107[facility] TownshipCO2 [Moles/Vol]25.9 mmol/L21.0-32.0 [facility] TownshipCreatinine [Mass/Vol]2.24 mg/dLHigh0.55-1.02 [facility] TownshipFerritin [Mass/Vol]151.0 ng/mL8.0-252.0 [facility] TownshipGFR/1.73 sq M.predicted MDRD (S/P/Bld) [Vol rate/Area]26 mL/min/{1.73_m2}Low>=60 mL/min/1.73m 2FPremier Health Miami Valley Hospital NorthGlucose [Mass/Vol]169 mg/jPHuge13-707IdoapkomaKettering Health Washington TownshipIron [Mass/Vol]41.0 ug/dLLow50.0-170.0[facility] TownshipMagnesium [Mass/Vol]2.0 mg/dL1.8-2.4FPremier Health Miami Valley Hospital NorthPotassium [Moles/Vol] 3.6 mmol/L3.5-5.1FRegional Medical Centerodium [Moles/Vol]141 mmol/L 136-145[facility] TownshipUrate [Mass/Vol]5.1 mg/dL2.6-6.0 [facility] TownshipUrea nitrogen [Mass/Vol]44.0 mg/dLHigh7.0-18.0 [facility] TownshipUrea nitrogen/Creatinine [Mass ratio]19.6 mg/mg [facility] TownshipBilirubin Ql (U)NegativeNEGATIVEK[facility]tering Health Washington TownshipGlucose (U) [Mass/Vol]NegativeNEGATIVEKettering Health Washington TownshipKetones Ql (U)NegativeNEGATIVEKettering Health Washington TownshippH (U)5.5 [pH]5.0-9.0Mercy Healthpecific gravity (U) [Rel density]1.0201.005-1.025[facility] TownshipUrobilinogen Qn (U)0.2 {Kelly'U}/dL0.2-1.0[facility] TownshipLaboratory - Specimen informationon 68-24-6007Cmfxfaongr (U)CLEARCLEARFPremier Health Miami Valley Hospital NorthColor (U)LT. YELLOWYELLOWKettering Health Washington TownshipLaboratory - Urinalysison 89-00-1410Ohupgki casts LM Ql (Urine sed)RAREKettering Health Washington TownshipLeukocyte esterase Test strip Ql (U)MODERATEAbnormalNEGATIVE [facility] TownshipMucus Ql (Urine sed)TRACEAbnormalNONE SEEN [facility] TownshipNitrite Ql (U)NegativeNEGATIVEK[facility]tering Health Washington TownshipProtein (U) [Mass/Vol]122.0 mg/dLHigh<=11.9[facility] TownshipProtein Ql (U)100 mg/dLAbnormalNEG/TRACEK[facility]tering Health Washington TownshipLeukocytes [#/volume] corrected for nucleated erythrocytes in Blood by Automated counon 27-89-4609UIF corrected for nucl RBC Auto (Bld) [#/Vol]Leukocytes [#/volume] corrected for nucleated erythrocytes in Blood by Automated coun4.0-11.0[facility] HospitalH Auto (RBC) [Entitic mass]on 26-69-4020SLF (RBC) [Entitic mass]MCH [Entitic mass] by Automated count26.7-34.0[facility] TownshipMCHC Auto (RBC) [Mass/Vol]on 91-91-6150AEAW (RBC) [Mass/Vol]MCHC [Mass/volume] by Automated count29.9-35.2FPremier Health Miami Valley Hospital NorthMCV Auto (RBC) [Entitic vol]on 46-61-1568UBC (RBC) [Entitic vol]MCV [Entitic volume] by Automated count 81.0-99.0[facility] TownshipNo Panel Informationon 01-75-961796- Hydroxy Vitamin D Total56.3 ng/mLKettering Health Washington TownshipComment on above:<20 ng/mL Vit D ooargrojh57-<30 ng/mL Vit D dptxrebpcgvf17-747 ng/mL Vit D sufficient>100 ng/mL Potential ToxicityParathyroid Hormone (Intact)9 pg/mL Ylxtbxdc61-45PieigfjruKettering Health Washington TownshipComment on above:Performed at: - [place] [id number] Director: Curry Rizzo PhD, Phone: [phone] Level4.8 mg/dLHigh2.6-4.7FPremier Health Miami [facility] Hospital NorthUrine BacteriaSMALL #/HPFAbnormalNONE [facility] GeneralUrine Occult BloodNegativeNEGATIVEKettering Health Washington TownshipUrine Other CastsSEEN #/LPFAbnormalNONE [facility] GeneralUrine Other CrystalsNone Seen #/HPFNone [facility] HospitalUrine Random Dgcqbrutou34.86 mg/dL20.00-300.00[facility] TownshipUrine RBC0-2 #/HPF0-2FPremier Health Miami Valley Hospital NorthUrine Squamous Epithelial CellsMODERATE #/LPFAbnormalNONE/RAREKettering Health Washington TownshipUrine WBC2-5 #/HPFAbnormalNONE [facility] GeneralPlatelet mean volume Auto (Bld) [Entitic vol]on 67-68-6571Otwpossv mean volume (Bld) [Entitic vol]Platelet mean volume [Entitic volume] in Blood by Automated count9.5-13.5FPremier Health Miami Valley Hospital NorthPlatelets Auto (Bld) [#/Vol]on 65-13-2305Zgqjknzjd (Bld) [#/Vol]Platelets [#/volume] in Blood by Automated -862UutygggajKettering Health Washington TownshipRBC Auto (Bld) [#/Vol]on 70-11-1856IKN (Bld) [#/Vol]Erythrocytes [#/volume] in Blood by Automated count Low4.20-5.40Mercy Healtherum or plasma anion gap determinationon 47-14-4890Lokyw gap [Moles/Vol]Serum or plasma anion gap determinationKettering Health Washington TownshipUrine protein/creatinine ratioon 89-54-7751Mhniblg/Creatinine (U) [Ratio]Urine protein/creatinine ratioKettering Health Washington TownshipAlbumin [Mass/volume] in Serum or Plasmaon 01-01-2024 Albumin [Mass/Vol]3.5 g/dL2.9-4.4FPremier Health Miami Valley Hospital NorthErythrocyte distribution width Auto (RBC) [Ratio]on 55-38-8198Blgvbbmuebk distribution width (RBC) [Ratio]15.2 %High11.0-15.0[facility] TownshipEstimated glomerular filtration rate (GFR) non- Americanon 91-17-5760BUY/1.73 sq M.predicted among non-blacks MDRD (S/P/Bld) [Vol rate/Area]21 mL/min/{1.73_m2} Low>=60[facility] TownshipHematocrit Auto (Bld) [Volume fraction] on 64-73-2258Dyjvrbaaln (Bld) [Volume fraction]32.4 %Low36.0-48.0[facility] TownshipHemoglobin [Mass/volume] in Bloodon 68-21-1946Sniulccdqt (Bld) [Mass/Vol]10.4 g/dLLow12.0-16.0[facility] TownshipIgA [Mass/volume] in Serum or Plasmaon 53-64-3586SkN [Mass/Vol]580 mg/dLAbnormal 64-422K[facility] TownshipIgG [Mass/volume] in Serum or Plasmaon 05-26-0096DjS [Mass/Vol]1132 mg/qB482-0723MspzqkuwmKettering Health Washington TownshipIgM [Mass/volume] in Serum or Plasmaon 80-93-0748JaP [Mass/Vol]155 mg/eY59-760 [facility] TownshipImmunofixation for Urineon 01-01-2024 Interpretation Immunofixation (U) [Interp]Comment.[facility] TownshipComment on above:No monoclonality detected.Performed at: [address] [id number] Director: Curry Rizzo PhD, Phone: [phone] light chains.kappa.free [Mass/volume] in Serum on 84-00-2353Zeomybwloehacg light chains.kappa.free (S) [Mass/Vol]75.5 mg/L Abnormal3.3-19.4FPremier Health Miami Valley Hospital NorthImmunoglobulin light chains.kappa.free/Immunoglobulin light chains.lambda.free [Priscilla 01-01-2024 Immunoglobulin light chains.kappa.free/Immunoglobulin light chains.lambda.free (S) [Mass ratio]1.250.26-1.65[facility] TownshipComment on above: Performed at: [address] [id number] Director: Curry Rizzo PhD, Phone: [phone] light chains.lambda.free [Mass/volume] in Serum or Plasmaon 23-45-1178Mdetmgsvxbwxkn light chains.lambda.free [Mass/Vol]60.4 mg/LAbnormal5.7-26.3FPremier Health Miami Valley Hospital NorthIron binding capacity [Mass/volume] in Serum or Plasmaon 67-35-2831Dhmy binding capacity [Mass/Vol]266.0 ug/dL250.0-450.0[facility] TownshipIron saturation [Mass Fraction] in Serum or Plasmaon 06-73-7905Ogxf saturation [Mass fraction]16.2 %[facility] Laboratory - Chemistry and Chemistry - challengeon 20-43-6786Ladbwea [Mass/Vol] 3.3 g/dLLow3.4-5.0[facility] TownshipCalcium [Mass/Vol]9.2 mg/dL 8.5-10.1FPremier Health Miami Valley Hospital NorthChloride [Moles/Vol]103 mmol/L98-107 [facility] TownshipCO2 [Moles/Vol]27.3 mmol/L21.0-32.0[facility] TownshipCreatinine [Mass/Vol]2.28 mg/dLHigh0.55-1.02[facility] TownshipFerritin [Mass/Vol]123.0 ng/mL8.0-252.0[facility] TownshipGFR/1.73 sq M.predicted MDRD (S/P/Bld) [Vol rate/Area]26 mL/min/{1.73_m2}Low>=60[facility] TownshipGlucose [Mass/Vol]139 mg/mJYwab58-308BbbiafpyoK[facility]tering Health Washington TownshipIron [Mass/Vol]43.0 ug/dLLow 50.0-170.0[facility] TownshipMagnesium [Mass/Vol]2.3 mg/dL1.8-2.4 [facility] TownshipPotassium [Moles/Vol]4.4 mmol/L3.5-5.1FRegional Medical Centerodium [Moles/Vol]138 mmol/K339-537ZcqjyddqkKettering Health Washington TownshipUrate [Mass/Vol]5.9 mg/dL2.6-6.0[facility] Urea nitrogen [Mass/Vol]50.0 mg/dLHigh7.0-18.0[facility] Urea nitrogen/Creatinine [Mass ratio]21.9 mg/mgKettering Health Washington Township Laboratory - Urinalysison 40-23-2200Aknaxrg (U) [Mass/Vol]93.2 mg/dLHigh<=11.9 [facility] TownshipLeukocytes [#/volume] corrected for nucleated erythrocytes in Blood by Automated counon 82-00-1864KGB corrected for nucl RBC Auto (Bld) [#/Vol]8.9 10 3/uL4.0-11.0[facility] HospitalH Auto (RBC) [Entitic mass]on 50-33-9790LMD (RBC) [Entitic mass]27.4 pg26.7-34.0 [facility] TownshipMCHC Auto (RBC) [Mass/Vol]on 86-86-1254KVXC (RBC) [Mass/Vol]32.1 g/dL29.9-35.2FPremier Health Miami Valley Hospital NorthMCV Auto (RBC) [Entitic vol]on 99-03-1111IIP (RBC) [Entitic vol]85.3 fL81.0-99.0[facility] TownshipNo Panel Informationon 810390-Tajbnty Vitamin D Total53.8 ng/mLKettering Health Washington TownshipComment on above:<20 ng/mL Vit D yukbrxpls19-<30 ng/mL Vit D qohreawiabau08-846 ng/mL Vit D sufficient>100 ng/mL Potential ToxicityParathyroid Hormone (Intact)95 pg/zDMaomjkfj55-23KhxgnkvlqKettering Health Washington TownshipComment on above:Performed at: - [facility] [address] [id number] Director: Curry Rizzo PhD, Phone: [phone] Level4.0 mg/dL2.6-4.7FPremier Health Miami [facility] North Protein Electrophoresis M-SpikeNot Observed g/dLNot ObservedKettering Health Washington TownshipProtein Electrophoresis NoteComment.[facility] TownshipComment on above:Protein electrophoresis scan will follow via computer,mail, or oracle database developer delivery.Urine Random Szztosdlsj98.24 mg/dL 20.00-300.00[facility] TownshipPlatelet mean volume Auto (Bld) [Entitic vol]on 10-25-8868Wwpclffn mean volume (Bld) [Entitic vol]10.9 fL 9.5-13.5FPremier Health Miami Valley Hospital NorthPlatelets Auto (Bld) [#/Vol]on 01-93-3126Tfgbupxrj (Bld) [#/Vol]184 10 3/nI282-565YicrpiocbKettering Health Washington TownshipProtein [Mass/volume] in Serum or Plasmaon 34-80-5859Xifmozy [Mass/Vol]7.0 g/dL6.0-8.5FPremier Health Miami Valley Hospital NorthRBC Auto (Bld) [#/Vol]on 01-01-2024 RBC (Bld) [#/Vol]3.80 10 6/uLLow4.20-5.40[facility] Healtherum globulin measurement (mass/volume)on 44-57-2439Xtidnmgi (S) [Mass/Vol]3.5 g/dL 2.2-3.9[facility] Healtherum or plasma albumin/globulin mass ratioon 28-54-6526Lciwicq/Globulin [Mass ratio]1.1 {ratio}0.7-1.7FRegional Medical Centererum or plasma alpha 1 globulin measurement by electrophoresis (mass/volume)on 18-47-1503Fwjlt 1 globulin Elph [Mass/Vol]0.3 g/dL0.0-0.4FRegional Medical Centererum or plasma alpha 2 globulin measurement by electrophoresis (mass/volume)on 72-17-9455Emyfn 2 globulin Elph [Mass/Vol]0.9 g/dL0.4-1.0[facility] Healtherum or plasma anion gap determinationon 90-71-1243Xjkql gap [Moles/Vol]12.1 mmol/LFRegional Medical Centererum or plasma beta globulin measurement by electrophoresis (mass/volume)on 04-42-6707Vfxi globulin Elph [Mass/Vol]1.1 g/dL0.7-1.3FRegional Medical Centererum or plasma gamma globulin measurement by electrophoresis (mass/volume)on 82-06-7099Faapv globulin Elph [Mass/Vol]1.3 g/dL 0.4-1.8[facility] Healtherum or plasma immunoelectrophoresis interpretationon 29-80-9034Crpypuojzzciow IEP [Interp]Comment.[facility] TownshipComment on above:No monoclonality detected.Urine protein/creatinine ratioon 08-14-4709Ijxfrds/Creatinine (U) [Ratio]1.06[facility] TownshipUS Thyroid glandon 72-50-2900[place] [address] Ultrasound Report Signed Patient: CLAUDIA ESTRELLA MR#: [id number] : 1950 Acct:[id number] Age/Sex: 73 / F ADM Date: 09/06/23 Loc: US Attending Dr: Sheyla Love M.D. Ordering Physician: Sheyla Love M.D. Date of Service: 09/06/23 Procedure(s): US thyroid Accession Number(s): [id number] cc: JOHN PERDOMO D.O.; Sheyla Love M.D. [place] [address] Patient Name: CLAUDIA ESTRELLA MRN: [id number] date: 1950 Sex: F Assigned Patient Location: US Current Patient Location: [place] Accession/Order Number: [id number] Exam Date: 09/06/2023 15:00 Report Date: 09/09/2023 [...] Renetta Renee M.D. Signed By: 09/09/23419 DD/ TD/TT: Campus Recruiting Intern:TBHRadiology, Radiologist, - 09/09/2023 [place] [address] Ultrasound Report Signed Patient: CLAUDIA ESTRELLA MR#: [id number] : 1950 Acct:[id number] Age/Sex: 73 / F ADM Date: 09/06/23 Loc: US Attending Dr: Sheyla Love M.D. Ordering Physician: Sheyla Love M.D. Date of Service: 09/06/23 Procedure(s): US thyroid Accession Number(s): [id number] cc: JOHN PERDOMO D.O.; Sheyla Love M.D. [facility] [place] [id number] Patient Name: CLAUDIA ESTRELLA MRN: [id number] date: 1950 Sex: F Assigned Patient Location: US Current Patient Location: US Accession/Order Number: [id number] Exam Date: 09/06/2023 15:00 Report Date: 09/09/2023 [...] Dictated By: Renetta Renee M.D. Signed By: 09/09/23 0420 DD/ 0418 TD/TT: Campus Recruiting Intern: [facility] HealthcareRadiology Study observation (narrative)[facility] HealthcareUS Thyroid glandOrdered By: Radiologist Radiology on 70-78-2751[facility] Work Phone: bNPon 12-16-9573Mdgpmsmyqqk peptide B (Bld) [Mass/Vol] 1458.0 pg/mLCritically high<=900.0Mari[facility] Osteopathic ClinicComment on above: Performed By: #### LIPID, TSH, FT3 #### [facility] [address] [place] [address] Dr. Andrey Jimenez AUTO DIFFon 35-54-9487QGZF #0.1 103/ulNormal0.0-0.1The Mercy HealthComment on above:Performed By: #### VITAD, FETIBC, FERR #### [facility] [address] [place] [address] Dr. Andrey HargroveBasophils/100 WBC (Bld)0.7 %Normal0.2-2.0[facility] Comment on above:Performed By: #### VITAD, FETIBC, FERR #### [facility] [address] [place] [address] Dr. Andrey Copeland #0.4 103/ulNormal0.0-0.7The Mercy HealthComment on above: Performed By: #### VITAD, FETIBC, FERR #### [facility] [address] [place] [address] Dr. Andrey Wilkinsonosinophils/100 WBC (Bld)4.6 %Normal0.9-7.0[facility] Comment on above:Performed By: #### VITAD, FETIBC, FERR #### [facility] [address] [place] [address] Dr. Andrey Wilkinsonrythrocyte distribution width (RBC) [Ratio]13.7 %Xaxavy51.0-15.0 The Mercy HealthComment on above:Performed By: #### VITAD, FETIBC, FERR #### [facility] [address] [place] [address] Dr. Andrey HargroveHematocrit (Bld) [Volume fraction]35.5 %Critically low36.0-48.0 The Mercy HealthComment on above:Performed By: #### VITAD, FETIBC, FERR #### [facility] [address] [place] [address] Dr. Andrey HargroveHemoglobin (Bld) [Mass/Vol]12.0 g/eVNqdlaw36.0-16.0The [facility]cy HealthComment on above:Performed By: #### VITAD, FETIBC, FERR #### [facility] [address] [place] [address] Dr. Andrey Willard #0.02 10e3/ulNormal0.00-0.03The [facility]cy HealthComment on above:Performed By: #### VITAD, FETIBC, FERR #### [facility] [address] [place] [address] Dr. Andrey Willard %0.2 %Normal0.0-0.5The [facility]cy HealthComment on above: Performed By: #### VITAD, FETIBC, FERR #### [facility] [address] [place] [address] Dr. Andrey Jarrett #1.5 103/ulNormal1.2-3.8The [facility]cy HealthComment on above:Performed By: #### VITAD, FETIBC, FERR #### [facility] [address] [place] [address] Dr. Andrey Derashocytes/100 WBC (Bld)18.1 %Critically low20.5-60.0The [facility] on above:Performed By: #### VITAD, FETIBC, FERR #### [facility] [address] [place] [address] Dr. Andrey ConnollyUAL DIFF REQNONormalThe Mercy HealthComment on above: Performed By: #### VITAD, FETIBC, FERR #### [facility] [address] [place] [address] Dr. Andrey Sevilla (RBC) [Entitic mass]29.3 fpQmjggv58.7-34.0The [facility]cy HealthComment on above:Performed By: #### VITAD, FETIBC, FERR #### [facility] [address] [place] [address] Dr. Andrey Coker (RBC) [Mass/Vol]33.8 g/xWRswgcc38.9-35.2The [facility] HealthComment on above:Performed By: #### VITAD, FETIBC, FERR #### [facility] [address] [place] [address] Dr. Andrey Chua (RBC) [Entitic vol]86.8 nZLsqtwc95.0-99.0The [facility] HealthComment on above:Performed By: #### VITAD, FETIBC, FERR #### [facility] [address] [place] [address] Dr. Andrey Magaña #0.7 103/ulNormal0.3-0.8The [facility]cy HealthComment on above:Performed By: #### VITAD, FETIBC, FERR #### [facility] [address] [place] [address] Dr. Andrey Hamiltonocytes/100 WBC (Bld)7.9 %Normal1.7-12.0[facility] Comment on above:Performed By: #### VITAD, FETIBC, FERR #### [facility] [address] [place] [address] Dr. Andrey Hay #5.7 103/ulNormal1.4-6.5The [facility]cy HealthComment on above:Performed By: #### VITAD, FETIBC, FERR #### [facility] [address] [place] [address] Dr. Adnrey Brionesutrophils/100 WBC (Bld)68.5 %Hbfjje49.0-75.0The [facility]cy HealthComment on above:Performed By: #### VITAD, FETIBC, FERR #### [facility] [address] [place] [address] Dr. Andrey Melgozalet mean volume (Bld) [Entitic vol]10.4 fLNormal9.5-13.5The [facility]cy HealthComment on above:Performed By: #### VITAD, FETIBC, FERR #### [facility] [address] [place] [address] Dr. Andrey HargrovePLT204 103/guDpbkfk588-156Akl Mercy HealthComment on above: Performed By: #### VITAD, FETIBC, FERR #### [facility] [address] [place] [address] Dr. Andrey HargroveRBC4.09 106/ulCritically low4.20-5.40The Mercy HealthComment on above:Performed By: #### VITAD, FETIBC, FERR #### [facility] [address] [place] [address] Dr. Andrey HargroveWBC8.3 103/ulNormal4.0-11.0The [facility] HealthComment on above: Performed By: #### VITSHAQ, FETIBC, FERR #### [facility] [address] [place] [address] Dr. Andrey HargrovePROF CHEM 8 (BAS METB)on 64-23-4130Dtkpb gap [Moles/Vol]11.1 mmol/LNormalThe [facility] HealthComment on above:Performed By: #### LIPID, TSH, FT3 #### [facility] [address] [place] [address] Dr. Andrey HargroveCalcium [Mass/Vol]9.2 mg/dLNormal8.5-10.1The [facility] Comment on above:Performed By: #### LIPID, TSH, FT3 #### [facility] [address] [place] [address] Dr. Andrey HargroveChloride [Moles/Vol]102 mmol/JVrvvjb08-475Lip [facility] Comment on above:Performed By: #### LIPID, TSH, FT3 #### [facility] [address] [place] [address] Dr. Andrey HargroveCO2 [Moles/Vol]31.2 mmol/HSkbnrb42.0-32.0The [facility] Comment on above:Performed By: #### LIPID, TSH, FT3 #### [facility] [address] [place] [address] Dr. Andrey HargroveCreatinine [Mass/Vol]1.79 mg/dLCritically high0.55-1.02The [facility] HealthComment on above:Performed By: #### LIPID, TSH, FT3 #### [facility] [address] [address] [address] Andrey WilkinsonGFR-AF APEDJQYV67 mL/min/1.12d0Omalfkvozd low>=60The [facility] HealthComment on above:Performed By: #### LIPID, TSH, FT3 #### [facility] [address] [address] [address] Andrey WilkinsonGFR-NON AF WUXFCGEJ96 mL/min/1.34f8Lywaftbsrz low>=60The [facility] HealthComment on above:Performed By: #### LIPID, TSH, FT3 #### [facility] [address] [address] [address] Andrey HargroveGlucose [Mass/Vol]148 mg/dLCritically pyzp69-576Skb [facility] HealthComment on above:Performed By: #### LIPID, TSH, FT3 #### [facility] [address] [address] [address] Andrey HargrovePotassium [Moles/Vol]3.3 mmol/LCritically low3.5-5.1The [facility] HealthComment on above:Performed By: #### LIPID, TSH, FT3 #### [facility] [address] [address] [address] Andrey HargroveSodium [Moles/Vol]141 mmol/IPwecru375-122Qwv [facility] Comment on above:Performed By: #### LIPID, TSH, FT3 #### [facility] [address] [address] [address] Andrey HargroveUrea nitrogen [Mass/Vol]41.0 mg/dLCritically high7.0-18.0The [facility] HealthComment on above:Performed By: #### LIPID, TSH, FT3 #### [facility] [address] [address] [address] Andrey HargroveUrea nitrogen/Creatinine [Mass ratio]22.9 mg/mgNormalThe [facility] HealthComment on above:Performed By: #### LIPID, TSH, FT3 #### [facility] [address] [address] [address] Andrey PettitH INTACTon 80-09-0666VGA, Ncbvfj11 pg/hRJpmtea25-32Jkb [facility]ment on above:Performed By: #### VITAD, FETIBC, FERR #### [facility] [address] [place], [place] [address] Dr. Andrey Suazo THYROIDon 96-60-9339KO THYROIDEXAMINATION: US THYROID HISTORY: Non-toxic multinodular goiter [...] Electronically authenticated by: RENETTA RENEE Date: 2022-08-24 16:[address] [place], [place] [address]FERRITINon 33-08-3722Durtvuqa [Mass/Vol]114.0 ng/mLNormal 8.0-252.0The [facility] on above:Performed By: #### VITAD, FETIBC, FERR #### [facility] [address] [place], [place] [address] Dr. Andrey HargroveHEMOGRAM AND PLATELon 83-05-9218Romofvheas (Bld) [Volume fraction]34.9 %Critically low36.0-48.0The [facility] on above: Performed By: #### VITAD, FETIBC, FERR #### [facility] [address] [place] [address] Dr. Andrey HargroveHemoglobin (Bld) [Mass/Vol]11.8 g/dLCritically low12.0-16.0The [facility] HealthComment on above:Performed By: #### VITAD, FETIBC, FERR #### [facility] [address] [place] [address] Dr. Andrey Coker (RBC) [Entitic mass]28.6 poMiqxlf50.7-34.0The [facility] HealthComment on above:Performed By: #### VITAD, FETIBC, FERR #### [facility] [address] [place] [address] Dr. Andrey Coker (RBC) [Mass/Vol]33.8 g/lJXqnxfk08.9-35.2The [facility] HealthComment on above:Performed By: #### VITAD, FETIBC, FERR #### [facility] [address] [place] [address] Dr. Andrey Coker (RBC) [Entitic vol]84.7 vGKrnfxx01.0-99.0The [facility] on above:Performed By: #### VITAD, FETIBC, FERR #### [facility] [address] [place] [address] Dr. Andrey HargrovePLT215 103/smFwqwlw180-135Wbb [facility] on above: Performed By: #### VITAD, FETIBC, FERR #### [facility] [address] [place] [address] Dr. Andrey HargroveRBC4.12 106/ulCritically low4.20-5.40The [facility] HealthComment on above:Performed By: #### VITAD, FETIBC, FERR #### [facility] [address] [place] [address] Dr. Andrey HargroveWBC9.2 103/ulNormal4.0-11.0The [facility] HealthComment on above: Performed By: #### VITAD, FETIBC, FERR #### [facility] [address] [place] [address] Dr. Andrey Mason AND TIBCon 08-23-2022% JRVBTWJYUY30.4 %NormalThe [facility] HealthComment on above:Performed By: #### VITAD, FETIBC, FERR #### [facility] [address] [place] [address] Dr. Andrey Mason [Mass/Vol]44.0 ug/dLCritically low50.0-170.0The [facility] HealthComment on above:Performed By: #### VITAD, FETIBC, FERR #### [facility] [address] [place] [address] Dr. Andrey HargroveTIBC CGWFDX248.0 ug/oEHxztie469.0-450.0[facility] Comment on above:Performed By: #### VITAD, FETIBC, FERR #### [facility] [address] [place] [address] Dr. Andrey HargroveMAGNESIUMon 42-27-5088Yopjlidpi [Mass/Vol]2.1 mg/dLNormal1.8-2.4 The [facility] HealthComment on above:Performed By: #### LIPID, TSH, FT3 #### [facility] [address] [place] [address] Dr. Andrey HargroveRENWILBERT FUNCTION PANELon 55-74-6138Mffhvlk [Mass/Vol]3.3 g/dL Critically low3.4-5.0The [facility] HealthComment on above:Performed By: #### LIPID, TSH, FT3 #### [facility] [address] [place] [address] Dr. Andrey HargroveCalcium [Mass/Vol]9.4 mg/dLNormal8.5-10.1[facility] Comment on above:Performed By: #### LIPID, TSH, FT3 #### [facility] [address] [place] [address] Dr. Andrey HargroveChloride [Moles/Vol]103 mmol/LGxubua35-161QcpMarietta Osteopathic Clinic Comment on above:Performed By: #### LIPID, TSH, FT3 #### [facility] [address] [place] [address] Dr. Andrey HargroveCO2 [Moles/Vol]26.8 mmol/XZrggjp00.0-32.0The [facility] Comment on above:Performed By: #### LIPID, TSH, FT3 #### [facility] [address] [place] [address] Dr. Andrey HargroveCreatinine [Mass/Vol]1.94 mg/dLCritically high0.55-1.02The [facility] HealthComment on above:Performed By: #### LIPID, TSH, FT3 #### [facility] [address] [place] [address] Dr. Andrey WilkinsonGFR-AF MMCMJCPM97 mL/min/1.75b2Bgofgzgghv low>=60The [facility] HealthComment on above:Performed By: #### LIPID, TSH, FT3 #### [facility] [address] [place] [address] Dr. Andrey WilkinsonGFR-NON AF MOAIBOTK99 mL/min/1.99l0Dyxbdadebd low>=60The [facility] HealthComment on above:Performed By: #### LIPID, TSH, FT3 #### [facility] [address] [place] [address] Dr. Andrey HargroveGlucose [Mass/Vol]166 mg/dLCritically yopy51-292XkqUC [facility] Hospitalment on above:Performed By: #### LIPID, TSH, FT3 #### [facility] [address] [place] [address] Dr. Andrey HargrovePhosphate [Mass/Vol]4.6 mg/dLNormal2.6-4.7The [facility] Comment on above:Performed By: #### LIPID, TSH, FT3 #### [facility] [address] [place] [address] Dr. Andrey HargrovePotassium [Moles/Vol]4.3 mmol/LNormal3.5-5.1[facility] Comment on above:Performed By: #### LIPID, TSH, FT3 #### [facility] [address] [place] [address] Dr. Andrey Toneyum [Moles/Vol]137 mmol/MQmjohh159-749FeuMarietta Osteopathic Clinic Comment on above:Performed By: #### LIPID, TSH, FT3 #### [facility] [address] [place] [address] Dr. Andrey Mccarty nitrogen [Mass/Vol]39.0 mg/dLCritically high7.0-18.0[facility] ClinicComment on above:Performed By: #### LIPID, TSH, FT3 #### [facility] [address] [place] [address] Dr. Andrey Link RANDOM W/MICROSCOPICon 92-22-6544MVERRRBIODYU SEENNormalNONE SEENMarietta Osteopathic ClinicComment on above:Performed By: #### VITAD, FETIBC, FERR #### [facility] [address] [place] [address] Dr. Andrey Godfrey Ql (U)NegativeNormalNEGATIVEThe [facility] Comment on above:Performed By: #### VITAD, FETIBC, FERR #### [facility] [address] [place] [address] Dr. Andrey Rodriguez SEENNormalNONE SEENMarietta Osteopathic ClinicComment on above:Performed By: #### VITAD, FETIBC, FERR #### [facility] [address] [place] [address] Dr. Andrey Lau (U)CLEARNormalCLEARThe [facility] HealthComment on above: Performed By: #### VITAD, FETIBC, FERR #### [facility] [address] [place] [address] Dr. Andrey Cervantes (U)LT. YELLOWNormalYELLOWMarietta Osteopathic ClinicComment on above:Performed By: #### VITAD, FETIBC, FERR #### [facility] [address] [place] [address] Dr. Andrey Mckenzie LM Nom (Urine sed)NONE SEENNormalNONE SEENMarietta Osteopathic ClinicComment on above:Performed By: #### VITAD, FETIBC, FERR #### [facility] [address] [address] [address] Andrey Castlethelial cells LM Ql (Urine sed)RARENormalNONE SEEN /RAREThe [facility] HealthComment on above:Performed By: #### VITAD, FETIBC, FERR #### [facility] [address] [address] [address] Andrey HargroveGlucose Ql (U)NegativeNormalNEGATIVESt. Anthony'S Hospital HospitalComment on above:Performed By: #### VITAD, FETIBC, FERR #### [facility] [address] [address] [address] Andrey HargroveHemoglobin Ql (U)NegativeNormalNEGATIVECleveland Clinic [facility] on above:Performed By: #### VITAD, FETIBC, FERR #### [facility] [address] [place] [address] Dr. Andrey HargroveKetones Ql (U)NegativeNormalNEGATIVEMarietta Osteopathic ClinicComment on above:Performed By: #### VITAD, FETIBC, FERR #### [facility] [address] [address] [address] Andrey HargroveLEUKOCYTESNegativeNormalNEGATIVEMarietta Osteopathic ClinicComment on above:Performed By: #### VITAD, FETIBC, FERR #### [facility] [address] [address] [address] Andrey HargroveMUCOUSNONE SEENNormalNONE SEENMarietta Osteopathic ClinicComment on above:Performed By: #### VITAD, FETIBC, FERR #### [facility] [address] [address] [address] Andrey HargroveNitrite Ql (U)NegativeNormalNEGATIVEMarietta Osteopathic ClinicComment on above:Performed By: #### VITAD, FETIBC, FERR #### [facility] [address] [place] [address] Dr. Andrey HargrovepH (U)6.5 [pH]Normal5-9The [facility] HealthComment on above: Performed By: #### VITAD, FETIBC, FERR #### [facility] [address] [address] [address] Andrey HargroveRBCNONE SEENAbnormal0-2The [facility] HealthComment on above: Performed By: #### VITAD, FETIBC, FERR #### [facility] [address] [place] [address] Dr. Andrey HargroveSPEC GRAVITY1.637Qmcjdd8.005-<=1.025The [facility] HospitalComment on above:Performed By: #### VITAD, FETIBC, FERR #### [facility] [address] [place] [address] Dr. Andrey HargroveUA RATQQZD70 mg/dlAbnormalNEGATIVE/ TRACEThe [facility] Comment on above:Performed By: #### VITAD, FETIBC, FERR #### [facility] [address] [place] [address] Dr. Andrey HargroveUrobilinogen Qn (U)0.2 {Kelly'U}/dLNormal0.2 - 1.0The [facility] HealthComment on above:Performed By: #### VITAD, FETIBC, FERR #### [facility] [address] [place] [address] Dr. Andrey HargroveWBCNONE SEENNormalNONE SEENThe [facility] HealthComment on above: Performed By: #### VITAD, FETIBC, FERR #### [facility] [address] [place] [address] Dr. Andrey HargroveURIC ACID SERUMon 25-07-8440Ahgii [Mass/Vol]5.8 mg/dLNormal 2.6-6.0The [facility] HealthComment on above:Performed By: #### LIPID, TSH, FT3 #### [facility] [address] [place] [address] Dr. Andrey HargroveVITAMIN D 25 OHon 87-03-3117KNI D 25-OH69.0 ng/mLNormalThe [facility] HealthComment on above:Performed By: #### VITAD, FETIBC, FERR #### [facility] [address] [place] [address] Dr. Andrey Blake RANGESSEKaterin [facility] HospitalComment on above: Result Comment: <20 ng/mL Vit D deficient 20 - <30 ng/mL Vit D insufficient 30 - 100 ng/mL Vit D sufficient >100 ng/mL Potential ToxicityPerformed By: #### VITAD, FETIBC, FERR #### [facility] [address] [address] [address] Balderas ChangECHOCARDIO M/2D COMPLETEon 27-74-7099CVGNOLPKIS M/2D COMPLETE Patient: CLAUDIA ESTRELLA Exam Date: 06/13/2022 : 1950 Gender:F Ordering : DR KARTHIK FISH M.D. Admission #: [id number] Family : Order #: [id number] CLICK HERE TO VIEW EXAM ECHOCARDIOGRAM REPORT [...] by: Karthik Fish M.D. on 06/14/2022 at 17:50[facility] HealthBNPon 89-34-6442Teyuaugzvgj peptide B (Bld) [Mass/Vol]4197.0 pg/mL Critically high<=900.0[facility] ClinicComment on above:Performed By: #### LIPID, TSH, FT3 #### [facility] [address] [address] [address] Andrey HargrovePROF CHEM 8 (BAS METB)on 33-79-0730Bgmhn gap [Moles/Vol]10.4 mmol/LNormalThe [facility] HealthComment on above:Performed By: #### VITAD, FETIBC, FERR #### [facility] [address] [place] [address] Dr. Andrey HargrvoeCalcium [Mass/Vol]9.4 mg/dLNormal8.5-10.1The [facility] Comment on above:Performed By: #### VITAD, FETIBC, FERR #### [facility] [address] [address] [address] Andrey HargroveChloride [Moles/Vol]99 mmol/VOvlbui12-748Ptd [facility] Comment on above:Performed By: #### VITAD, FETIBC, FERR #### [facility] [address] [place] [address] Dr. Andrey HargroveCO2 [Moles/Vol]33.8 mmol/LCritically high21.0-32.0The [facility] HealthComment on above:Performed By: #### VITAD, FETIBC, FERR #### [facility] [address] [place] [address] Dr. Andrey HargroveCreatinine [Mass/Vol]2.09 mg/dLCritically high0.55-1.02The [facility] HealthComment on above:Performed By: #### VITAD, FETIBC, FERR #### [facility] [address] [place] [address] Dr. Balderas ChangEGFR-AF SMIQGZJI77 mL/min/1.77v9Vrtjmqssub low>=60The [facility] HealthComment on above:Performed By: #### VITAD, FETIBC, FERR #### [facility] [address] [address] [address] Andrey WilkinsonGFR-NON AF ACCEPYBI49 mL/min/1.49r2Qpjtjsftuo low>=60The [facility] HealthComment on above:Performed By: #### VITAD, FETIBC, FERR #### [facility] [address] [address] [address] Andrey HargroveGlucose [Mass/Vol]75 mg/lTOqwloj87-675Ozn [facility] Comment on above:Performed By: #### VITAD, FETIBC, FERR #### [facility] [address] [place] [address] Dr. Andrey HargrovePotassium [Moles/Vol]3.2 mmol/LCritically low3.5-5.1The [facility] HealthComment on above:Performed By: #### VITAD, FETIBC, FERR #### [facility] [address] [place] [address] Dr. Andrey HargroveSodium [Moles/Vol]140 mmol/CKiuyyq143-963Cew [facility] Comment on above:Performed By: #### VITAD, FETIBC, FERR #### [facility] [address] [place] [address] Dr. Andrey HargroveUrea nitrogen [Mass/Vol]61.0 mg/dLCritically high7.0-18.0The [facility] HealthComment on above:Performed By: #### VITAD, FETIBC, FERR #### [facility] [address] [place] [address] Dr. Andrey Mccarty nitrogen/Creatinine [Mass ratio]29.2 mg/mgNormalThe [facility] HealthComment on above:Performed By: #### VITAD, FETIBC, FERR #### [facility] [address] [place] [address] Dr. Andrey Monge 62-14-1539Hiknkhfcard peptide B (Bld) [Mass/Vol]9365.0 pg/mLCritically high<=900.0The [facility] HealthComment on above:Performed By: #### VITAD, FETIBC, FERR #### [facility] [address] [place] [address] Dr. Andrey Kimble CHEM 8 (BAS METB)on 08-12-5513Jeadi gap [Moles/Vol]10.7 mmol/LNormalThe [facility] HealthComment on above:Performed By: #### VITAD, FETIBC, FERR #### [facility] [address] [place] [address] Dr. Andrey HargroveCalcium [Mass/Vol]9.1 mg/dLNormal8.5-10.1The [facility] Comment on above:Performed By: #### VITAD, FETIBC, FERR #### [facility] [address] [place] [address] Dr. Andrey HargroveChloride [Moles/Vol]98 mmol/RMadwte77-432Ndw [facility] Comment on above:Performed By: #### VITAD, FETIBC, FERR #### [facility] [address] [place] [address] Dr. Andrey HargroveCO2 [Moles/Vol]29.4 mmol/JVgaibi65.0-32.0The [facility] Comment on above:Performed By: #### VITAD, FETIBC, FERR #### [facility] [address] [place] [address] Dr. Andrey HargroveCreatinine [Mass/Vol]2.44 mg/dLCritically high0.55-1.02The [facility] HealthComment on above:Performed By: #### VITAD, FETIBC, FERR #### [facility] [address] [place] [address] Dr. Andrey WilkinsonGFR-AF FXDVNEJL53 mL/min/1.25c8Orwugajsvz low>=60The [facility] HealthComment on above:Performed By: #### VITAD, FETIBC, FERR #### [facility] [address] [place] [address] Dr. Andrey WilkinsonGFR-NON AF DGTOKDWX16 mL/min/1.22k9Gykfzchsji low>=60The [facility] HealthComment on above:Performed By: #### VITAD, FETIBC, FERR #### [facility] [address] [address] [address] Andrey HargroveGlucose [Mass/Vol]135 mg/dLCritically fbif48-756Dyc [facility] HealthComment on above:Performed By: #### VITAD, FETIBC, FERR #### [facility] [address] [address] [address] Andrey HargrovePotassium [Moles/Vol]4.1 mmol/LNormal3.5-5.1The [facility] Comment on above:Performed By: #### VITAD, FETIBC, FERR #### [facility] [address] [place] [address] Dr. Andrey HargroveSodium [Moles/Vol]134 mmol/LCritically txi096-598Xcj [facility] HealthComment on above:Performed By: #### VITAD, FETIBC, FERR #### [facility] [address] [address] [address] Andrey HargroveUrea nitrogen [Mass/Vol]81.0 mg/dLCritically high7.0-18.0The [facility] HealthComment on above:Performed By: #### VITAD, FETIBC, FERR #### [facility] [address] [place] [address] Dr. Andrey HargroveUrea nitrogen/Creatinine [Mass ratio]33.2 mg/mgNormalThe [facility] HealthComment on above:Performed By: #### VITAD, FETIBC, FERR #### [facility] [address] [place] [address] Dr. Andrey HargroveXR ELBOW RT MIN 3 VIEWSon 19-57-5241DH ELBOW RT MIN 3 VIEWSEXAM: XR ELBOW [...] Electronically authenticated by: BETSY LAZARO Date: 2022-06-01 17:24[facility] HealthRENAL FUNCTION PANELon 25-10-4340Pkfaakb [Mass/Vol]3.4 g/dL Normal3.4-5.0[facility] ClinicComment on above:Performed By: #### LIPID, TSH, FT3 #### [facility] [address] [place] [address] Dr. Andrey HargroveCalcium [Mass/Vol]9.1 mg/dLNormal8.5-10.1[facility] Comment on above:Performed By: #### LIPID, TSH, FT3 #### [facility] [address] [address] [address] Andrey HargroveChloride [Moles/Vol]99 mmol/BDxivcc13-974RxtMarietta Osteopathic Clinic Comment on above:Performed By: #### LIPID, TSH, FT3 #### [facility] [address] [address] [address] Andrey HargroveCO2 [Moles/Vol]30.9 mmol/GGueaym88.0-32.0[facility] Comment on above:Performed By: #### LIPID, TSH, FT3 #### [facility] [address] [address] [address] Andrey HargroveCreatinine [Mass/Vol]2.24 mg/dLCritically high0.55-1.02[facility] ClinicComment on above:Performed By: #### LIPID, TSH, FT3 #### [facility] [address] [address] [address] Andrey WilkinsonGFR-AF KUZGTEFA36 mL/min/1.83y5Hhmvobjrda low>=60The [facility] HealthComment on above:Performed By: #### LIPID, TSH, FT3 #### [facility] [address] [address] [address] Andrey WilkinsonGFR-NON AF OOOPZYVE39 mL/min/1.92n5Polyuufryo low>=60The [facility] HealthComment on above:Performed By: #### LIPID, TSH, FT3 #### [facility] [address] [address] [address] Andrey HargroveGlucose [Mass/Vol]94 mg/jBEegeam36-399XzsMarietta Osteopathic Clinic Comment on above:Performed By: #### LIPID, TSH, FT3 #### [facility] [address] [place] [address] Dr. Andrey HargrovePhosphate [Mass/Vol]4.7 mg/dLNormal2.6-4.7The [facility] Comment on above:Performed By: #### LIPID, TSH, FT3 #### [facility] [address] [address] [address] Andrey HargrovePotassium [Moles/Vol]3.5 mmol/LNormal3.5-5.1[facility] Comment on above:Performed By: #### LIPID, TSH, FT3 #### [facility] [address] [address] [address] Andrey HargroveSodium [Moles/Vol]136 mmol/CAkelil186-251Evl [facility] Comment on above:Performed By: #### LIPID, TSH, FT3 #### [facility] [address] [address] [address] Andrey HargroveUrea nitrogen [Mass/Vol]72.0 mg/dLCritically high7.0-18.0The [facility] HealthComment on above:Performed By: #### LIPID, TSH, FT3 #### [facility] [address] [address] [address] Andrey PettitH INTACTon 35-83-7334DWE, Rxydeg88 pg/pBDaenle37-54Fip [facility] HealthComment on above:Performed By: #### LIPID, TSH, FT3 #### [facility] [address] [place] [address] Dr. Andrey HargroveFERRITINon 05-74-1015Arrpoedy [Mass/Vol]190.0 ng/mLNormal 8.0-252.0The [facility] HealthComment on above:Performed By: #### LIPID, TSH, FT3 #### [facility] [address] [place] [address] Dr. Andrey HargroveFRSAMSON T3on 26-68-6584UUSB T31.96 pg/mlLCritically low2.18-3.98The [facility] Hospitalment on above:Performed By: #### LIPID, TSH, FT3 #### [facility] [address] [place] [address] Dr. Andrey Joaquin T4on 86-74-0632Zznc T4 [Mass/Vol]1.33 ng/dLNormal0.76-1.46 The [facility] HealthComment on above:Performed By: #### LIPID, TSH, FT3 #### [facility] [address] [place] [address] Dr. Andrey HargroveHEMOGRAM AND PLATELon 24-85-7886Fqhsgxybqy (Bld) [Volume fraction]30.6 %Critically low36.0-48.0The [facility] on above: Performed By: #### VITAD, FETIBC, FERR #### [facility] [address] [place] [address] Dr. Andrey HargroveHemoglobin (Bld) [Mass/Vol]10.4 g/dLCritically low12.0-16.0The [facility] on above:Performed By: #### VITAD, FETIBC, FERR #### [facility] [address] [place] [address] Dr. Andrey HargroveH (RBC) [Entitic mass]28.6 zbBnevnx68.7-34.0The [facility] Hospitalment on above:Performed By: #### VITAD, FETIBC, FERR #### [facility] [address] [place] [address] Dr. Andrey Coker (RBC) [Mass/Vol]34.0 g/dCRmkfvq45.9-35.2The [facility] HospitalComment on above:Performed By: #### VITAD, FETIBC, FERR #### [facility] [address] [place] [address] Dr. Andrey Coker (RBC) [Entitic vol]84.1 vMCseaui50.0-99.0The [facility] HospitalComment on above:Performed By: #### VITAD, FETIBC, FERR #### [facility] [address] [place] [address] Dr. Andrey HargrovePLT179 103/kgYkikqx383-237Def [facility] HealthComment on above: Performed By: #### VITAD, FETIBC, FERR #### [facility] [address] [place] [address] Dr. Andrey HargroveRBC3.64 106/ulCritically low4.20-5.40The [facility] HealthComment on above:Performed By: #### VITAD, FETIBC, FERR #### [facility] [address] [place] [address] Dr. Andrey HargroveWBC9.5 103/ulNormal4.0-11.0The [facility] HealthComment on above: Performed By: #### VITAD, FETIBC, FERR #### [facility] [address] [place] [address] Dr. Andrey Mason AND TIBCon 05-23-2022% QPSIURYXJW63.9 %NormalThe [facility] HealthComment on above:Performed By: #### LIPID, TSH, FT3 #### [facility] [address] [place] [address] Dr. Andrey Mason [Mass/Vol]44.0 ug/dLCritically low50.0-170.0The [facility] HealthComment on above:Performed By: #### LIPID, TSH, FT3 #### [facility] [address] [address] [address] Andrey HargroveTIBC EWVTEJ946.0 ug/aBBhitaf805.0-450.0[facility] Comment on above:Performed By: #### LIPID, TSH, FT3 #### [facility] [address] [place] [address] Dr. Andrey RomoID PROFILEon [id number] RATIO NORMSEE [facility] HospitalComment on above:Result Comment: 3.3 - 4.4 LOW RISK 4.4 - 7.1 AVERAGE RISK 7.1 - 11.0 MODERATE RISK >11.0 HIGH RISKPerformed By: #### LIPID, TSH, FT3 #### [facility] [address] [place] [address] Dr. Andrey Anguloesterol [Mass/Vol]129 mg/dLNormal<=200[facility] Comment on above:Performed By: #### LIPID, TSH, FT3 #### [facility] [address] [place] [address] Dr. Andrey Anguloesterol in HDL [Mass/Vol]55 mg/sDFpvaqf55-82XjcMarietta Osteopathic ClinicComment on above:Performed By: #### LIPID, TSH, FT3 #### [facility] [address] [place] [address] Dr. Andrey HargroveCholesterol in LDL [Mass/Vol]59.6 mg/dLKettering HealthComment on above:Performed By: #### LIPID, TSH, FT3 #### [facility] [address] [place] [address] Dr. Andrey Smith.total/Cholesterol in HDL [Mass ratio]2.3 {ratio} NormalMarietta Osteopathic ClinicComment on above:Performed By: #### LIPID, TSH, FT3 #### [facility] [address] [place] [address] Dr. Andrey Hughes NORMAL> or = 60 mg/dl - LOW CARDIOVASCULAR RISK <40 mg/dl - HIGH CARDIOVASCULAR RISKKettering HealthComment on above:Performed By: #### LIPID, TSH, FT3 #### [facility] [address] [address] [address] Andrey Powers CALC NORMALSEE BELOWKettering HealthComment on above:Result Comment: <100 mg/dl OPTIMAL 100 - 129 mg/dl NEAR OR ABOVE OPTIMAL 130 - 159 mg/dl BORDERLINE HIGH 160 - 189 mg/dl HIGH >190 mg/dl VERY HIGH Performed By: #### LIPID, TSH, FT3 #### [facility] [address] [address] [address] Andrey HargroveTriglyceride [Mass/Vol]72 mg/dLNormal<=150[facility] Comment on above:Performed By: #### LIPID, TSH, FT3 #### [facility] [address] [place] [address] Dr. Andrey HargroveVLDL CALC14.4 mg/dLKettering HealthComment on above: Performed By: #### LIPID, TSH, FT3 #### [facility] [address] [place] [address] Dr. Andrey HargroveMAGNESIUMon 21-12-6300Lbukjoowt [Mass/Vol]2.2 mg/dLNormal1.8-2.4 The [facility] HealthComment on above:Performed By: #### LIPID, TSH, FT3 #### [facility] [address] [place] [address] Dr. Andrey HargroveRENAL FUNCTION PANELon [id number] [Mass/Vol]3.5 g/dLNormal 3.4-5.0M[facility] Osteopathic ClinicComment on above:Performed By: #### LIPID, TSH, FT3 #### [facility] [address] [place] [address] Dr. Andrey HargroveCalcium [Mass/Vol]10.0 mg/dLNormal8.5-10.1[facility] Comment on above:Performed By: #### LIPID, TSH, FT3 #### [facility] [address] [place] [address] Dr. Andrey HargroveChloride [Moles/Vol]98 mmol/LBkgnty62-725Agx [facility] Comment on above:Performed By: #### LIPID, TSH, FT3 #### [facility] [address] [address] [address] Andrey HargroveCO2 [Moles/Vol]34.3 mmol/LCritically high21.0-32.0The [facility] HealthComment on above:Performed By: #### LIPID, TSH, FT3 #### [facility] [address] [place] [address] Dr. Andrey HargroveCreatinine [Mass/Vol]2.24 mg/dLCritically high0.55-1.02The [facility] HealthComment on above:Performed By: #### LIPID, TSH, FT3 #### [facility] [address] [place] [address] Dr. Andrey WilkinsonGFR-AF XDDWYXOU68 mL/min/1.39o4Pzatpvipkm low>=60The [facility] HealthComment on above:Performed By: #### LIPID, TSH, FT3 #### [facility] [address] [place] [address] Dr. Andrey WilkinsonGFR-NON AF DIICYUOW11 mL/min/1.10c8Yrxiuigvck low>=60The [facility] HealthComment on above:Performed By: #### LIPID, TSH, FT3 #### [facility] [address] [place] [address] Dr. Andrey HargroveGlucose [Mass/Vol]123 mg/dLCritically cfxe66-373Htf [facility] HealthComment on above:Performed By: #### LIPID, TSH, FT3 #### [facility] [address] [place] [address] Dr. Andrey HargrovePhosphate [Mass/Vol]5.2 mg/dLCritically high2.6-4.7The [facility] HealthComment on above:Performed By: #### LIPID, TSH, FT3 #### [facility] [address] [place] [address] Dr. Andrey HargrovePotassium [Moles/Vol]3.0 mmol/LCritically low3.5-5.1The [facility] HealthComment on above:Performed By: #### LIPID, TSH, FT3 #### [facility] [address] [address] [address] Andrey Toneyum [Moles/Vol]137 mmol/AQxnouq098-584AdjMarietta Osteopathic Clinic Comment on above:Performed By: #### LIPID, TSH, FT3 #### [facility] [address] [place] [address] Dr. Andrey Mccarty nitrogen [Mass/Vol]80.0 mg/dLCritically high7.0-18.0The [facility] HealthComment on above:Performed By: #### LIPID, TSH, FT3 #### [facility] [address] [place] [address] Dr. Andrey Hernandez 43-84-0626BXL4.652 uIU/mLCritically high0.358-3.740The [facility] HealthComment on above:Performed By: #### LIPID, TSH, FT3 #### [facility] [address] [place] [address] Dr. Andrey Link RANDOM W/MICROSCOPICon 72-77-5602XUMXXSGSDGZX SEENNormalNONE SEENMarietta Osteopathic ClinicComment on above:Performed By: #### VITAD, FETIBC, FERR #### [facility] [address] [place] [address] Dr. Andrey Godfrey Ql (U)NegativeNormalNEGATIVEMarietta Osteopathic Clinic Comment on above:Performed By: #### VITAD, FETIBC, FERR #### [facility] [address] [place] [address] Dr. Andrey KenNONE SEENNormalNONE SEENMarietta Osteopathic ClinicComment on above:Performed By: #### VITAD, FETIBC, FERR #### [facility] [address] [place] [address] Dr. Andrey Lau (U)CLEARNormalCLEARThe [facility] HealthComment on above: Performed By: #### VITAD, FETIBC, FERR #### [facility] [address] [place] [address] Dr. Yilan ChangColor (U)LT. YELLOWNormalYELLOWMarietta Osteopathic ClinicComment on above:Performed By: #### VITAD, FETIBC, FERR #### [facility] [address] [address] [address] Andrey HargroveCrystals LM Nom (Urine sed)NONE SEENNormalNONE SEENMarietta Osteopathic ClinicComment on above:Performed By: #### VITAD, FETIBC, FERR #### [facility] [address] [address] [address] Andrey Wilkinsonpithelial cells LM Ql (Urine sed)FEWAbnormalNONE SEEN /RAREMarietta Osteopathic ClinicComment on above:Performed By: #### VITAD, FETIBC, FERR #### [facility] [address] [place] [address] Dr. Andrey HargroveGlucose Ql (U)NegativeNormalNEGATIVEMarietta Osteopathic ClinicComment on above:Performed By: #### VITAD, FETIBC, FERR #### [facility] [address] [place] [address] Dr. Andrey HargroveHemoglobin Ql (U)TRACE-INTACTAbnormalNEGATIVEMarietta Osteopathic ClinicComment on above:Performed By: #### VITAD, FETIBC, FERR #### [facility] [address] [place] [address] Dr. Andrey HargroveKetones Ql (U)NegativeNormalNEGATIVEMarietta Osteopathic ClinicComment on above:Performed By: #### VITAD, FETIBC, FERR #### [facility] [address] [place] [address] Dr. Andrey HargroveLEUKOCYTESSMALLAbnormalNEGATIVEMarietta Osteopathic ClinicComment on above:Performed By: #### VITAD, FETIBC, FERR #### [facility] [address] [place] [address] Dr. Andrey HargroveMUCOUSNONE SEENNormalNONE SEENMarietta Osteopathic ClinicComment on above:Performed By: #### VITAD, FETIBC, FERR #### [facility] [address] [place] [address] Dr. Andrey Bernal Ql (U)NegativeNormalNEGATIVEThe [facility] HealthComment on above:Performed By: #### VITAD, FETIBC, FERR #### [facility] [address] [place] [address] Dr. Andrey HargrovepH (U)5.5 [pH]Normal5-9The [facility] HealthComment on above: Performed By: #### VITAD, FETIBC, FERR #### [facility] [address] [place] [address] Dr. Andrey HargroveEjvxlHMK0-6Btkksx7-2Rhn [facility] HealthComment on above:Performed By: #### VITSHAQ, FETIBC, FERR #### [facility] [address] [place] [address] Dr. Andrey HargroveSPEC GRAVITY1.726Vttkcj5.005-<=1.025The [facility] HealthComment on above:Performed By: #### VITAD, FETIBC, FERR #### [facility] [address] [place] [address] Dr. Andrey Link PROTEINTRACENormalNEGATIVE/ TRACEThe [facility] HealthComment on above:Performed By: #### VITSHAQ, FETIBC, FERR #### [facility] [address] [place] [address] Dr. Andrey Mercadobilino Qn (U)0.2 {Kelly'U}/dLNormal0.2 - 1.0The [facility] HealthComment on above:Performed By: #### VITAD, FETIBC, FERR #### [facility] [address] [place] [address] Dr. Andrey HargroveWBC0-2AbnormalNONE SEENThe [facility] HealthComment on above: Performed By: #### VITAD, FETIBC, FERR #### [facility] [address] [place] [address] Dr. Andrey HargroveURIC ACID SERUMon 54-72-1256Vzdre [Mass/Vol]7.4 mg/dLCritically high2.6-6.0The [facility]Comment on above:Performed By: #### LIPID, TSH, FT3 #### [facility] [address] [place] [address] Dr. Andrey Sanchez T PROTEIN CREAT RATIOon 07-27-7111Gayjysg (U) [Mass/Vol] 39.9 mg/dLCritically high<=12.0[facility]opathic ClinicComment on above:Performed By: #### URTPCR #### [facility] [address] [place] [address] Dr. Andrey Fox PROT CREAT RAT0.64NoMetroHealth Cleveland Heights Medical CenterComment on above: Performed By: #### URTPCR #### [facility] [address] [place] [address] Dr. Andrey Sanchez CREAT62.30 mg/iOOsxuat26.00-300.00[facility] Comment on above:Performed By: #### URTPCR #### [facility] [address] [place] [address] Dr. Andrey HargroveVITAMIN D 25 OHon 17-82-7791XHZ D 25-OH90.7 ng/mLNormalMarietta Osteopathic ClinicComment on above:Performed By: #### LIPID, TSH, FT3 #### [facility] [address] [place] [address] Dr. Andrey Blake RANGESSEE BELOWKettering HealthComment on above: Result Comment: <20 ng/mL Vit D deficient 20 - <30 ng/mL Vit D insufficient 30 - 100 ng/mL Vit D sufficient >100 ng/mL Potential ToxicityPerformed By: #### LIPID, TSH, FT3 #### [facility] [address] [place] [address] Dr. Andrey HargroveMAGNESIUMon 88-14-5118Briqpieyv [Mass/Vol]2.1 mg/dLNormal1.8-2.4 [facility] ClinicComharbor beach [facility] on above:Performed By: #### LIPID, TSH, FT3 #### [facility] [address] [place] [address] Dr. Andrey HargrovePROF CHEM 8 (BAS METB)on 73-99-9698Eytim gap [Moles/Vol]12.0 mmol/LNormalThe [facility] HealthComment on above:Performed By: #### LIPID, TSH, FT3 #### [facility] [address] [address] [address] Andrey HargroveCalcium [Mass/Vol]9.0 mg/dLNormal8.5-10.1[facility] Comment on above:Performed By: #### LIPID, TSH, FT3 #### [facility] [address] [address] [address] Andrey HargroveChloride [Moles/Vol]97 mmol/LCritically afe27-665Bdv [facility] HealthComment on above:Performed By: #### LIPID, TSH, FT3 #### [facility] [address] [address] [address] Andrey HargroveCO2 [Moles/Vol]30.4 mmol/HJdszyk09.0-32.0[facility] Comment on above:Performed By: #### LIPID, TSH, FT3 #### [facility] [address] [address] [address] Andrey HargroveCreatinine [Mass/Vol]2.28 mg/dLCritically high0.55-1.02The [facility]Comment on above:Performed By: #### LIPID, TSH, FT3 #### [facility] [address] [address] [address] Andrey WilkinsonGFR-AF ULDZTGOR98 mL/min/1.29y5Mlijvvnydb low>=60The [facility]Comment on above:Performed By: #### LIPID, TSH, FT3 #### [facility] [address] [address] [address] Andrey WilkinsonGFR-NON AF TJUNOEGL75 mL/min/1.25m1Qluphslglh low>=60The [facility]Comment on above:Performed By: #### LIPID, TSH, FT3 #### [facility] [address] [address] [address] Andrey HargroveGlucose [Mass/Vol]190 mg/dLCritically rdic32-390Crc [facility] HealthComment on above:Performed By: #### LIPID, TSH, FT3 #### [facility] [address] [address] [address] Andrey HargrovePotassium [Moles/Vol]3.4 mmol/LCritically low3.5-5.1The [facility] HealthComment on above:Performed By: #### LIPID, TSH, FT3 #### [facility] [address] [address] [address] Andrey HargroveSodium [Moles/Vol]136 mmol/KPiezqv469-632Oop [facility] Comment on above:Performed By: #### LIPID, TSH, FT3 #### [facility] [address] [address] [address] Andrey HargroveUrea nitrogen [Mass/Vol]73.0 mg/dLCritically high7.0-18.0The [facility] HealthComment on above:Performed By: #### LIPID, TSH, FT3 #### [facility] [address] [address] [address] Andrey Mccarty nitrogen/Creatinine [Mass ratio]32.0 mg/mgNoMetroHealth Cleveland Heights Medical CenterComment on above:Performed By: #### LIPID, TSH, FT3 #### [facility] [address] [place] [address] Dr. Andrey HargroveXR CHEST 2 Von 34-54-5982XM CHEST 2 VEXAMINATION: XR CHEST 2 V [...] Electronically authenticated by: RENETTA RENEE Date: 2022-05-12 09:12Kettering HealthBNPon 07-07-6638Ouehoybgxqw peptide B (Bld) [Mass/Vol]7074.0 pg/mLCritically high<=900.0The [facility]Comment on above:Performed By: #### VITAD, FETIBC, FERR #### [facility] [address] [place] [address] Dr. Andrey Jimenez AUTO DIFFon 05-10-1353KRWQ #0.1 103/ulNormal0.0-0.1The [facility] HealthComment on above:Performed By: #### VITAD, FETIBC, FERR #### [facility] [address] [place] [address] Dr. Andrey HargroveBasophils/100 WBC (Bld)0.7 %Normal0.2-2.0[facility] Comment on above:Performed By: #### VITAD, FETIBC, FERR #### [facility] [address] [place] [address] Dr. Andrey Copeland #0.3 103/ulNormal0.0-0.7The [facility] HealthComment on above: Performed By: #### VITAD, FETIBC, FERR #### [facility] [address] [place] [address] Dr. Andrey Wilkinsonosinophils/100 WBC (Bld)3.8 %Normal0.9-7.0[facility] Comment on above:Performed By: #### VITAD, FETIBC, FERR #### [facility] [address] [place] [address] Dr. Andrey Wilkinsonrythrocyte distribution width (RBC) [Ratio]14.7 %Ulpyut50.0-15.0 [facility] ClinicComment on above:Performed By: #### VITAD, FETIBC, FERR #### [facility] [address] [place] [address] Dr. Andrey HargroveHematocrit (Bld) [Volume fraction]29.6 %Critically low36.0-48.0 The [facility] HealthComment on above:Performed By: #### VITAD, FETIBC, FERR #### [facility] [address] [place] [address] Dr. Andrey HargroveHemoglobin (Bld) [Mass/Vol]9.9 g/dLCritically low12.0-16.0The [facility] HealthComment on above:Performed By: #### VITAD, FETIBC, FERR #### [facility] [address] [place] [address] Dr. Andrey Willard #0.03 10e3/ulNormal0.00-0.03The [facility] HealthComment on above:Performed By: #### VITAD, FETIBC, FERR #### [facility] [address] [place] [address] Dr. Andrey Willard %0.4 %Normal0.0-0.5The [facility] HealthComment on above: Performed By: #### VITAD, FETIBC, FERR #### [facility] [address] [place] [address] Dr. Andrey Jarrett #1.3 103/ulNormal1.2-3.8The [facility] HealthComment on above:Performed By: #### VITAD, FETIBC, FERR #### [facility] [address] [place] [address] Dr. Andrey Derashocytes/100 WBC (Bld)16.3 %Critically low20.5-60.0The [facility] Hospitalment on above:Performed By: #### VITAD, FETIBC, FERR #### [facility] [address] [place] [address] Dr. Andrey ConnollyUAL DIFF REQNONormalThe [facility] HealthComment on above: Performed By: #### VITAD, FETIBC, FERR #### [facility] [address] [place] [address] Dr. Andrey Sevilla (RBC) [Entitic mass]28.7 jeKnaujq19.7-34.0The [facility] HealthComment on above:Performed By: #### VITAD, FETIBC, FERR #### [facility] [address] [place] [address] Dr. Andrey Coker (RBC) [Mass/Vol]33.4 g/uVEltmit46.9-35.2The [facility] HealthComment on above:Performed By: #### VITAD, FETIBC, FERR #### [facility] [address] [place] [address] Dr. Andrey Chua (RBC) [Entitic vol]85.8 pSZqlcus21.0-99.0The [facility] HealthComment on above:Performed By: #### VITAD, FETIBC, FERR #### [facility] [address] [place] [address] Dr. Andrey Magaña #0.7 103/ulNormal0.3-0.8The [facility] HealthComment on above:Performed By: #### VITAD, FETIBC, FERR #### [facility] [address] [place] [address] Dr. Andrey Hamiltonocytes/100 WBC (Bld)8.7 %Normal1.7-12.0[facility] Comment on above:Performed By: #### VITAD, FETIBC, FERR #### [facility] [address] [place] [address] Dr. Andrey Hay #5.4 103/ulNormal1.4-6.5The [facility] HealthComment on above:Performed By: #### VITAD, FETIBC, FERR #### [facility] [address] [place] [address] Dr. Andrey Brionesutrophils/100 WBC (Bld)70.1 %Bjgngd45.0-75.0The [facility] HealthComment on above:Performed By: #### VITAD, FETIBC, FERR #### [facility] [address] [place] [address] Dr. Andrey Khan mean volume (Bld) [Entitic vol]10.9 fLNormal9.5-13.5The [facility] HealthComment on above:Performed By: #### VITAD, FETIBC, FERR #### [facility] [address] [place] [address] Dr. Andrey HargrovePLT171 103/udGxiyfu322-473Vef [facility] HealthComment on above: Performed By: #### VITAD, FETIBC, FERR #### [facility] [address] [place] [address] Dr. Andrey HargroveRBC3.45 106/ulCritically low4.20-5.40The [facility] HealthComment on above:Performed By: #### VITAD, FETIBC, FERR #### [facility] [address] [place] [address] Dr. Andrey HargroveWBC7.7 103/ulNormal4.0-11.0The [facility] HealthComment on above: Performed By: #### VITAD, FETIBC, FERR #### [facility] [address] [place] [address] Dr. Andrey HargrovePROF CHEM 8 (BAS METB)on 10-47-3065Bpeuk gap [Moles/Vol]9.8 mmol/LNormalThe [facility] HealthComment on above:Performed By: #### VITAD, FETIBC, FERR #### [facility] [address] [place] [address] Dr. Andrey HargroveCalcium [Mass/Vol]9.1 mg/dLNormal8.5-10.1[facility] Comment on above:Performed By: #### VITAD, FETIBC, FERR #### [facility] [address] [place] [address] Dr. Andrey HargroveChloride [Moles/Vol]96 mmol/LCritically guw58-439Vfi [facility] HealthComment on above:Performed By: #### VITAD, FETIBC, FERR #### [facility] [address] [place] [address] Dr. Andrey HargroveCO2 [Moles/Vol]30.8 mmol/FHbhrmq14.0-32.0[facility] Comment on above:Performed By: #### VITAD, FETIBC, FERR #### [facility] [address] [place] [address] Dr. Andrey HargroveCreatinine [Mass/Vol]2.28 mg/dLCritically high0.55-1.02The [facility] HealthComment on above:Performed By: #### VITAD, FETIBC, FERR #### [facility] [address] [place] [address] Dr. Andrey WilkinsonGFR-AF UMETRVSI21 mL/min/1.09f9Afzfwsetqi low>=60The [facility] HealthComment on above:Performed By: #### VITAD, FETIBC, FERR #### [facility] [address] [address] [address] Andrey WilkinsonGFR-NON AF XUNWKKZS18 mL/min/1.40m5Mdakdvtwft low>=60The [facility] on above:Performed By: #### VITAD, FETIBC, FERR #### [facility] [address] [place] [address] Dr. Andrey HargroveGlucose [Mass/Vol]158 mg/dLCritically cjfx91-980Nkf [facility] HealthComment on above:Performed By: #### VITAD, FETIBC, FERR #### [facility] [address] [place] [address] Dr. Andrey HargrovePotassium [Moles/Vol]3.6 mmol/LNormal3.5-5.1The [facility] Comment on above:Performed By: #### VITAD, FETIBC, FERR #### [facility] [address] [place] [address] Dr. Andrey HargroveSodium [Moles/Vol]133 mmol/LCritically vzo101-682Dgp [facility] Hospitalment on above:Performed By: #### VITAD, FETIBC, FERR #### [facility] [address] [place] [address] Dr. Andrey HargroveUrea nitrogen [Mass/Vol]66.0 mg/dLCritically high7.0-18.0The [facility]ment on above:Performed By: #### VITAD, FETIBC, FERR #### [facility] [address] [place] [address] Dr. Andrey HargroveUrea nitrogen/Creatinine [Mass ratio]28.9 mg/mgNormalThe [facility] HospitalComment on above:Performed By: #### VITAD, FETIBC, FERR #### [facility] [address] [address] [address] Andrey HargroveMAGNESIUMon 64-55-5217Ptsxyrbul [Mass/Vol]1.9 mg/dLNormal1.8-2.4 The [facility] HealthComment on above:Performed By: #### VITAD, FETIBC, FERR #### [facility] [address] [address] [address] Andrey HargrovePROF CHEM 8 (BAS METB)on 74-53-8527Hnixu gap [Moles/Vol]11.7 mmol/LNormalThe [facility] HealthComment on above:Performed By: #### VITAD, FETIBC, FERR #### [facility] [address] [place] [address] Dr. Andrey HargroveCalcium [Mass/Vol]9.4 mg/dLNormal8.5-10.1The [facility] Comment on above:Performed By: #### VITAD, FETIBC, FERR #### [facility] [address] [address] [address] Andrey HargroveChloride [Moles/Vol]97 mmol/LCritically ozh87-646Mgo [facility] HealthComment on above:Performed By: #### VITAD, FETIBC, FERR #### [facility] [address] [address] [address] Andrey HargroveCO2 [Moles/Vol]29.0 mmol/RJgylml14.0-32.0The [facility] Comment on above:Performed By: #### VITAD, FETIBC, FERR #### [facility] [address] [address] [address] Andrey HargroveCreatinine [Mass/Vol]2.02 mg/dLCritically high0.55-1.02The [facility] HealthComment on above:Performed By: #### VITAD, FETIBC, FERR #### [facility] [address] [place] [address] Dr. Balderas ChangEGFR-AF LPLOOEIH72 mL/min/1.45b8Wrbpbmfvos low>=60The [facility] HealthComment on above:Performed By: #### VITAD, FETIBC, FERR #### [facility] [address] [address] [address] Balderas ChangEGFR-NON AF OTQDBXDP58 mL/min/1.50l4Ovwlfatirs low>=60The [facility] HealthComment on above:Performed By: #### VITAD, FETIBC, FERR #### [facility] [address] [address] [address] Andrey HargroveGlucose [Mass/Vol]204 mg/dLCritically wnza96-433Iyg [facility] HealthComment on above:Performed By: #### VITAD, FETIBC, FERR #### [facility] [address] [place] [address] Dr. Andrey HargrovePotassium [Moles/Vol]3.7 mmol/LNormal3.5-5.1The [facility] Comment on above:Performed By: #### VITAD, FETIBC, FERR #### [facility] [address] [address] [address] Andrey HargroveSodium [Moles/Vol]134 mmol/LCritically qho172-980Xaq [facility] Hospitalment on above:Performed By: #### VITAD, FETIBC, FERR #### [facility] [address] [place] [address] Dr. Andrey HargroveUrea nitrogen [Mass/Vol]60.0 mg/dLCritically high7.0-18.0The [facility] HealthComment on above:Performed By: #### VITAD, FETIBC, FERR #### [facility] [address] [place] [address] Dr. Andrey HargroveUrea nitrogen/Creatinine [Mass ratio]29.7 mg/mgNormalThe [facility] HealthComment on above:Performed By: #### VITAD, FETIBC, FERR #### [facility] [address] [place] [address] Dr. Andrey PettitH INTACTon 92-13-8137NIK, Kexjeu58 pg/zEMamsvm90-35Xmo [facility]ment on above:Performed By: #### LIPID, TSH, FT3 #### [facility] [address] [place] [address] Dr. Andrey HargroveFERRITINon 02-70-7053Gydimkii [Mass/Vol]133.0 ng/mLNormal 8.0-252.0The [facility]ment on above:Performed By: #### VITAD, FETIBC, FERR #### [facility] [address] [place] [address] Dr. Andrey HargroveHEMOGRAM AND PLATELon 29-91-0586Scyskdwhja (Bld) [Volume fraction]31.7 %Critically low36.0-48.0The [facility] on above: Performed By: #### VITAD, FETIBC, FERR #### [facility] [address] [place] [address] Dr. Andrey HargroveHemoglobin (Bld) [Mass/Vol]10.2 g/dLCritically low12.0-16.0The [facility]ment on above:Performed By: #### VITAD, FETIBC, FERR #### [facility] [address] [place] [address] Dr. Andrey Coker (RBC) [Entitic mass]28.3 joCaenvz59.7-34.0The [facility]Com[facility] on above:Performed By: #### VITAD, FETIBC, FERR #### [facility] [address] [place] [address] Dr. Andrey Coker (RBC) [Mass/Vol]32.2 g/kUCaxblz28.9-35.2The [facility]ment on above:Performed By: #### VITAD, FETIBC, FERR #### [facility] [address] [place] [address] Dr. Andrey Coker (RBC) [Entitic vol]88.1 oGTzyayn10.0-99.0The [facility]ment on above:Performed By: #### VITAD, FETIBC, FERR #### [facility] [address] [place] [address] Dr. Andrey HargrovePLT198 103/fcJozytm400-164Tpo [facility] HealthComment on above: Performed By: #### VITAD, FETIBC, FERR #### [facility] [address] [place] [address] Dr. Andrey HargroveRBC3.60 106/ulCritically low4.20-5.40The [facility] HealthComment on above:Performed By: #### VITAD, FETIBC, FERR #### [facility] [address] [place] [address] Dr. Andrey HargroveWBC8.5 103/ulNormal4.0-11.0The [facility] HealthComment on above: Performed By: #### VITAD, FETIBC, FERR #### [facility] [address] [place] [address] Dr. Andrey Mason AND TIBCon 01-17-2022% JNBFCZSLNX43.8 %NormalThe [facility] HealthComment on above:Performed By: #### VITAD, FETIBC, FERR #### [facility] [address] [place], [place] [address] Dr. Andrey Mason [Mass/Vol]47.0 ug/dLCritically low50.0-170.0The Mercy HealthComment on above:Performed By: #### VITAD, FETIBC, FERR #### [facility] [address] [place] [address] Dr. Andrey Zhou DXOHJF453.0 ug/oBMeryyn691.0-450.0[facility] Comment on above:Performed By: #### VITAD, FETIBC, FERR #### [facility] [address] [place] [address] Dr. Andrey ValenzuelaESIUMon 24-22-6498Uywxxogwh [Mass/Vol]2.0 mg/dLNormal1.8-2.4 The [facility] HealthComment on above:Performed By: #### VITAD, FETIBC, FERR #### [facility] [address] [place], [place] [id number] Dr. Andrey Adan FUNCTION PANELon 93-15-4380Uhfbsem [Mass/Vol]3.3 g/dL Critically low3.4-5.0The [facility] HealthComment on above:Performed By: #### VITAD, FETIBC, FERR #### [facility] [address] [place] [address] Dr. Andrey HargroveCalcium [Mass/Vol]9.1 mg/dLNormal8.5-10.1[facility] Comment on above:Performed By: #### VITAD, FETIBC, FERR #### [facility] [address] [place] [address] Dr. Andrey HargroveChloride [Moles/Vol]104 mmol/EBidcrc06-675WtcMarietta Osteopathic Clinic Comment on above:Performed By: #### VITAD, FETIBC, FERR #### [facility] [address] [place] [address] Dr. Andrey HargroveCO2 [Moles/Vol]27.6 mmol/LHgqtsc90.0-32.0[facility] Comment on above:Performed By: #### VITAD, FETIBC, FERR #### [facility] [address] [place] [address] Dr. Andrey HargroveCreatinine [Mass/Vol]1.71 mg/dLCritically high0.55-1.02[facility] ClinicComment on above:Performed By: #### VITAD, FETIBC, FERR #### [facility] [address] [place] [address] Dr. Andrey WilkinsonGFR-AF PWVHIIAL84 mL/min/1.99f4Jpmqmshtmg low>=60The [facility] HealthComment on above:Performed By: #### VITAD, FETIBC, FERR #### [facility] [address] [place] [address] Dr. Andrey WilkinsonGFR-NON AF UYXMATAW14 mL/min/1.34i8Utihdwgzxk low>=60The [facility] HealthComment on above:Performed By: #### VITAD, FETIBC, FERR #### [facility] [address] [address] [address] Andrey HargroveGlucose [Mass/Vol]115 mg/dLCritically sqsb80-430Hna [facility] HealthComment on above:Performed By: #### VITAD, FETIBC, FERR #### [facility] [address] [address] [address] Andrey HargrovePhosphate [Mass/Vol]4.3 mg/dLNormal2.6-4.7[facility] Comment on above:Performed By: #### VITAD, FETIBC, FERR #### [facility] [address] [address] [address] Andrey HargrovePotassium [Moles/Vol]3.9 mmol/LNormal3.5-5.1[facility] Comment on above:Performed By: #### VITAD, FETIBC, FERR #### [facility] [address] [place] [address] Dr. Andrey Menchacadium [Moles/Vol]139 mmol/IDoqkqj246-812ZffMarietta Osteopathic Clinic Comment on above:Performed By: #### VITAD, FETIBC, FERR #### [facility] [address] [address] [address] Andrey HargroveUrea nitrogen [Mass/Vol]38.0 mg/dLCritically high7.0-18.0The [facility] Hospitalment on above:Performed By: #### VITAD, FETIBC, FERR #### [facility] [address] [place] [address] Dr. Andrey Link RANDOM W/MICROSCOPICon 95-85-5486WLWWNHZENSUU SEENNormalNONE SEENMarietta Osteopathic ClinicComment on above:Performed By: #### LIPID, TSH, FT3 #### [facility] [address] [place] [address] Dr. Andrey Godfrey Ql (U)NegativeNormalNEGATIVEMarietta Osteopathic Clinic Comment on above:Performed By: #### LIPID, TSH, FT3 #### [facility] [address] [place] [address] Dr. Andrey HargroveCASTSEENAbnormalNONE SEENThe [facility] Hospitalment on above: Performed By: #### LIPID, TSH, FT3 #### [facility] [address] [address] [address] Andrey Bacaarity ()CLEARNormalCLEARMarietta Osteopathic ClinicComment on above: Performed By: #### LIPID, TSH, FT3 #### [facility] [address] [address] [address] Andrey Cervantes (U)LT. YELLOWNormalYELLOWMarietta Osteopathic ClinicComharbor beach community hospital on above:Performed By: #### LIPID, TSH, FT3 #### [facility] [address] [address] [address] Andrey HargroveCrystals LM Nom (Urine sed)NONE SEENNormalNONE SEENUC [facility] Hospitalment on above:Performed By: #### LIPID, TSH, FT3 #### [facility] [address] [address] [address] Balderas ChangEpithelial cells LM Ql (Urine sed)FEWAbnormalNONE SEEN /RAREBlanchard Valley Health System on above:Performed By: #### LIPID, TSH, FT3 #### [facility] [address] [address] [address] Andrey Crandallose Ql (U)NegativeNormalNEGATIVEBlanchard Valley Health System on above:Performed By: #### LIPID, TSH, FT3 #### [facility] [address] [address] [address] Andrey HargroveHemoglobin Ql (U)NegativeNormalNEGATIVECleveland Clinic [facility] on above:Performed By: #### LIPID, TSH, FT3 #### [facility] [address] [address] [address] Andrey HargroveHYALINE CASTRARENormalBlanchard Valley Health System on above: Performed By: #### LIPID, TSH, FT3 #### [facility] [address] [address] [address] Andrey HargroveKetones Ql (U)NegativeNormalNEGATIVEBlanchard Valley Health System on above:Performed By: #### LIPID, TSH, FT3 #### [facility] [address] [address] [address] Andrey SouzaOCYTESTRACEAbnormalNEGATIVEThe [facility] HealthComment on above:Performed By: #### LIPID, TSH, FT3 #### [facility] [address] [address] [address] Andrey HargroveMUCOUSNONKaterin SEENNormalNONE SEENThe [facility] HealthComment on above:Performed By: #### LIPID, TSH, FT3 #### [facility] [address] [address] [address] Andrey Bernal Ql (U)NegativeNormalNEGATIVEThe [facility] HealthComment on above:Performed By: #### LIPID, TSH, FT3 #### [facility] [address] [place] [address] Dr. Andrey HargrovepH (U)5.0 [pH]Normal5-9The [facility] HealthComment on above: Performed By: #### LIPID, TSH, FT3 #### [facility] [address] [place] [address] Dr. Andrey HargroveLivrnTNT4-1Mvfjsh9-3Yed [facility] on above:Performed By: #### LIPID, TSH, FT3 #### [facility] [address] [place] [address] Dr. Andrey HargroveSPEC GRAVITY1.948Xpcleh3.005-<=1.025The [facility] HealthComment on above:Performed By: #### LIPID, TSH, FT3 #### [facility] [address] [place] [address] Dr. Andrey HargroveUA PROTEINNegativeNormalNEGATIVE/ TRACEThe [facility] Comment on above:Performed By: #### LIPID, TSH, FT3 #### [facility] [address] [place] [address] Dr. Andrey Maldonado Qn (U)0.2 {Kelly'U}/dLNormal0.2 - 1.0The [facility] HealthComment on above:Performed By: #### LIPID, TSH, FT3 #### [facility] [address] [place] [address] Dr. Andrey HargroveWBC2-5AbnormalNONE SEENMarietta Osteopathic ClinicComment on above: Performed By: #### LIPID, TSH, FT3 #### [facility] [address] [place] [address] Dr. Andrey HargroveURIC ACID SERUMon 21-44-9989Gopsc [Mass/Vol]5.4 mg/dLNormal 2.6-6.0The [facility] HealthComment on above:Performed By: #### VITAD, FETIBC, FERR #### [facility] [address] [place] [address] Dr. Andrey Sanchez T PROTEIN CREAT RATIOon 30-37-1121Hrbolwh (U) [Mass/Vol] 15.3 mg/dLCritically high<=12.0The [facility] HealthComment on above:Performed By: #### VITAD, FETIBC, FERR #### [facility] [address] [place] [address] Dr. Andrey Fox PROT CREAT RAT0.36NoMetroHealth Cleveland Heights Medical CenterComment on above: Performed By: #### VITAD, FETIBC, FERR #### [facility] [address] [place] [address] Dr. Andrey Sanchez CREAT42.16 mg/vUNjsdtw36.00-300.00[facility] Comment on above:Performed By: #### VITAD, FETIBC, FERR #### [facility] [address] [place] [address] Dr. Andrey HargroveVITAMIN D 25 OHon 45-45-4131RIM D 25-OH73.8 ng/mLNormalThe [facility] HealthComment on above:Performed By: #### VITAD, FETIBC, FERR #### [facility] [address] [place] [address] Dr. Andrey Blake RANGES[place] BELOWNoMetroHealth Cleveland Heights Medical CenterComment on above: Result Comment: <20 ng/mL Vit D deficient 20 - <30 ng/mL Vit D insufficient 30 - 100 ng/mL Vit D sufficient >100 ng/mL Potential ToxicityPerformed By: #### VITAD, FETIBC, FERR #### [facility] [address] [place] [address] Dr. Andrey ChinF CHEM 8 (BAS METB)on 88-79-4873Gascf gap [Moles/Vol]13.3 mmol/LNormalThe [facility] HealthComment on above:Performed By: #### VITAD, FETIBC, FERR #### [facility] [address] [place] [address] Dr. Andrey HargroveCalcium [Mass/Vol]9.5 mg/dLNormal8.5-10.1[facility] Comment on above:Performed By: #### VITAD, FETIBC, FERR #### [facility] [address] [place] [address] Dr. Andrey HargroveChloride [Moles/Vol]98 mmol/PAqzsrg06-325Kww [facility] Comment on above:Performed By: #### VITAD, FETIBC, FERR #### [facility] [address] [place] [address] Dr. Andrey HargroveCO2 [Moles/Vol]25.7 mmol/JMumgxp42.0-32.0[facility] Comment on above:Performed By: #### VITAD, FETIBC, FERR #### [facility] [address] [place] [address] Dr. Andrey HargroveCreatinine [Mass/Vol]2.92 mg/dLCritically high0.55-1.02The [facility] HealthComment on above:Performed By: #### VITAD, FETIBC, FERR #### [facility] [address] [place] [address] Dr. Andrey WilkinsonGFR-AF OPDXYMLX24 mL/min/1.88m2Hgnulevebm low>=60The [facility] HealthComment on above:Performed By: #### VITAD, FETIBC, FERR #### [facility] [address] [place] [address] Dr. Andrey WilkinsonGFR-NON AF MLKZQAUZ27 mL/min/1.49f7Gyeubokyzq low>=60The [facility] HealthComment on above:Performed By: #### VITAD, FETIBC, FERR #### [facility] [address] [address] [address] Andrey HargroveGlucose [Mass/Vol]156 mg/dLCritically kvtp58-437Kkl [facility] HealthComment on above:Performed By: #### VITAD, FETIBC, FERR #### [facility] [address] [address] [address] Andrey HargrovePotassium [Moles/Vol]5.0 mmol/LNormal3.5-5.1[facility] Comment on above:Performed By: #### VITAD, FETIBC, FERR #### [facility] [address] [place] [address] Dr. Andrey HargroveSodium [Moles/Vol]132 mmol/LCritically fvc880-062Vrw [facility] HealthComment on above:Performed By: #### VITAD, FETIBC, FERR #### [facility] [address] [place] [address] Dr. Andrey HargroveUrea nitrogen [Mass/Vol]77.0 mg/dLCritically high7.0-18.0The [facility] HealthComment on above:Result Comment: CALLED TO FRANCIS JUNG RMA Performed By: #### VITAD, FETIBC, FERR #### [facility] [address] [place] [address] Dr. Andrey HargroveUrea nitrogen/Creatinine [Mass ratio]26.4 mg/mgNormalThe [facility] HealthComment on above:Performed By: #### VITAD, FETIBC, FERR #### [facility] [address] [place] [address] Dr. Andrey HargroveCardiovascular Lab Reporton 81-07-2583Ulxotjuvjqfgog Lab Report [facility] Patient Name: Claudia Estrella [facility] MR #: [id number] Physician: Karthik Calvo of [facility] Date: 12/09/2021 Division of Birthdate: 1950 Cardiology Room #: CC Adult Cardiovascular Services [facility] [address] [place], [place] [address] Cardiovascular Laboratory Report INDICATION: The patient is [...] signed informed consent. She was brought to laboratory scientist in a fasting state. The right neck area was prepped and draped in usual fashion. Micropuncture technique and ultrasound guidance were used for access in the right internal jugular vein. A 5-Kyrgyz x 11 cm sheath was placed. A 5-Kyrgyz Dumont catheter was used for right heart [...] P/Karthik Fish M.D. Date Trans: 12/09/2021 11:37 P/mmo DN_JN:[id number] cc: John Perdomo D.O. [address] [place] [id number] COMPLETE BLOOD COUNTon 14-13-9562Niqsccsvneo distribution width (RBC) [Ratio]13.6 %Normal 11.5-15.0The [place] [facility] HospitalComment on above:Performed By: #### [id number] #### [facility] [address] [place] [address], [facility] HOSPITALHematocrit (Bld) [Volume fraction]35.6 %Low36.0-45.0The [place] [facility] HospitalComment on above:Performed By: #### [id number] #### [facility] [address] [facility] [place] [address], USAHemoglobin (Bld) [Mass/Vol]11.8 g/dLLow12.0-15.0The [place] [facility] HospitalComment on above:Performed By: #### [id number] #### [facility] [address] [facility] [place] [address], USAMCH (RBC) [Entitic mass]28.6 jwIftzhx89.0-33.0The [place] [facility] HospitalComment on above:Performed By: #### [id number] #### [facility] [address] [place] [address], USAMCHC (RBC) [Mass/Vol]33.1 g/cBZdueft11.0-35.0The [place] [facility] HospitalComment on above:Performed By: #### [id number] #### [facility] [address] [facility] [place] [address], [facility] HOSPITALMCV (RBC) [Entitic vol]86.2 oNWuheoe61.0-98.0The [place] [facility] HospitalComment on above:Performed By: #### 07984 #### [facility] [address] [place] [address], USANucleated RBC/100 WBC (Bld) [Ratio]0 %Normal0-0The [place] [facility] HospitalComment on above:Performed By: #### [id number] #### [facility] [address] [place] [address], USAPLAT [id number] 10*3/qFJcyqxt027-313Dia [place] [facility] HospitalComment on above:Performed By: #### [id number] #### [facility] [address] [place] [address], R[facility] HOSPITALRBC (Bld) [#/Vol]4.13 10*6/uLNormal3.80-5.00The [place] [facility] HospitalComment on above:Performed By: #### [id number] #### [facility] [address] [place] [address], USAWBC (Bld) [#/Vol]14.13 10*3/uLHigh4.00-10.60The [place] [facility] HospitalComment on above:Performed By: #### [id number] #### [facility] [address] [place] [address], USACovid-19 PCR (CVDTBH)on 02-85-4942ONDV-CoV-2 (COVID-19) RNA JAYASHREE+probe Ql (Unsp spec)Not detectedNormalNOT DETECTEDThe [facility] Comment on above:Result Comment: This test is not yet approved or cleared by the [place] FDA. When there are no FDA-approved or cleared tests available, and other criteria are met, FDA can make tests available under an emergency access mechanism called an Emergency Use Authorization (EUA). The EUA for this test is supported by the [place] of Health and Human Service's (HHS's) declaration [...] SARS-CoV-2.Performed By: #### VITAD, FETIBC, FERR #### [facility] [address] [place] [address] Dr. Balderas ChangECHOCARDIO M/2D COMPLETEon 50-04-2023QYBJNQVWWM M/2D COMPLETE Patient: CLAUDIA ESTRELLA Exam Date: 12/06/2021 : 1950 Gender:F Ordering : KWAN ROSALES Admission #: [id number] Family : DR JOHN PERDOMO D.OSwati Order #: [id number] CLICK HERE TO VIEW EXAM ECHOCARDIOGRAM REPORT [...] Area(A4C): 14.80 cm2 Left Atrium Systolic Volume(A2C): 77445 mm3 Left Atrium Systolic Volume(A4C): 95295 mm3 Mitral Valve MV E to A [...] by: Karthik Fish M.D. on 12/06/2021 at 17:31Kettering HealthBNPon 14-68-7576Nkrcyafffhx peptide B (Bld) [Mass/Vol]5127.0 pg/mL Critically high<=900.0The [facility] HealthComment on above:Performed By: #### VITAD, FETIBC, FERR #### [facility] [address] [place] [address] Dr. Andrey HargrovePROF CHEM 8 (BAS METB)on 97-50-9135Ybeyo gap [Moles/Vol]13.9 mmol/LNormalThe [facility] HealthComment on above:Performed By: #### VITAD, FETIBC, FERR #### [facility] [address] [place] [address] Dr. Andrey HargroveCalcium [Mass/Vol]9.4 mg/dLNormal8.5-10.1[facility] Comment on above:Performed By: #### VITAD, FETIBC, FERR #### [facility] [address] [place] [address] Dr. Andrey HargroveChloride [Moles/Vol]99 mmol/QJmrqqz56-575Yky [facility] Comment on above:Performed By: #### VITAD, FETIBC, FERR #### [facility] [address] [place] [address] Dr. Andrey HargroveCO2 [Moles/Vol]28.4 mmol/VKurcgf61.0-32.0[facility] Comment on above:Performed By: #### VITAD, FETIBC, FERR #### [facility] [address] [place] [address] Dr. Andrey HargroveCreatinine [Mass/Vol]2.11 mg/dLCritically high0.55-1.02The [facility] HealthComment on above:Performed By: #### VITAD, FETIBC, FERR #### [facility] [address] [place] [address] Dr. Andrey WilkinsonGFR-AF VVVHEPXV67 mL/min/1.23s6Akejpgixrn low>=60The [facility] HealthComment on above:Performed By: #### VITAD, FETIBC, FERR #### [facility] [address] [place] [address] Dr. Balderas ChangEGFR-NON AF BOHKUXSV52 mL/min/1.72q2Wjsmpfyloj low>=60The [facility] HealthComment on above:Performed By: #### VITAD, FETIBC, FERR #### [facility] [address] [place] [address] Dr. Andrey HargroveGlucose [Mass/Vol]179 mg/dLCritically vjzx34-697Ykn [facility] HealthComment on above:Performed By: #### VITAD, FETIBC, FERR #### [facility] [address] [place] [address] Dr. Andrey HargrovePotassium [Moles/Vol]4.3 mmol/LNormal3.5-5.1[facility] Comment on above:Performed By: #### VITAD, FETIBC, FERR #### [facility] [address] [place] [address] Dr. Andrey HargroveSodium [Moles/Vol]137 mmol/DBrlcpx963-261OdcMarietta Osteopathic Clinic Comment on above:Performed By: #### VITAD, FETIBC, FERR #### [facility] [address] [place] [address] Dr. Andrey HargroveUrea nitrogen [Mass/Vol]62.0 mg/dLCritically high7.0-18.0The [facility] HealthComment on above:Performed By: #### VITAD, FETIBC, FERR #### [facility] [address] [place] [address] Dr. Andrey Mccarty nitrogen/Creatinine [Mass ratio]29.4 mg/mgNormalThe [facility] HealthComment on above:Performed By: #### VITAD, FETIBC, FERR #### [facility] [address] [place] [address] Dr. Andrey Monge 54-79-6884Yqroivpqfzu peptide B (Bld) [Mass/Vol]4773.0 pg/mLCritically high<=900.0The [facility] HealthComment on above:Performed By: #### VITAD, FETIBC, FERR #### [facility] [address] [place] [address] Dr. Andrey HargrovePROF CHEM 8 (BAS METB)on 48-29-9748Iynwh gap [Moles/Vol]11.3 mmol/LNormalThe [facility] HealthComment on above:Performed By: #### VITAD, FETIBC, FERR #### [facility] [address] [place] [address] Dr. Andrey HargroveCalcium [Mass/Vol]8.9 mg/dLNormal8.5-10.1[facility] Comment on above:Performed By: #### VITAD, FETIBC, FERR #### [facility] [address] [place] [address] Dr. Andrey HargroveChloride [Moles/Vol]100 mmol/NSieoqk50-952Rwl [facility] Comment on above:Performed By: #### VITAD, FETIBC, FERR #### [facility] [address] [place] [address] Dr. Andrey HargroveCO2 [Moles/Vol]30.9 mmol/HTgxugf71.0-32.0[facility] Comment on above:Performed By: #### VITAD, FETIBC, FERR #### [facility] [address] [place] [address] Dr. Andrey HargroveCreatinine [Mass/Vol]2.01 mg/dLCritically high0.55-1.02The [facility] HealthComment on above:Performed By: #### VITAD, FETIBC, FERR #### [facility] [address] [place] [address] Dr. Andrey WilkinsonGFR-AF MVEANDTS05 mL/min/1.99q6Htvhhxypos low>=60The [facility] HealthComment on above:Performed By: #### VITAD, FETIBC, FERR #### [facility] [address] [address] [address] Andrey WilkinsonGFR-NON AF FCPBLPXS74 mL/min/1.32g4Rxygtqsshq low>=60The [facility] HealthComment on above:Performed By: #### VITAD, FETIBC, FERR #### [facility] [address] [address] [address] Andrey HargroveGlucose [Mass/Vol]81 mg/bMHatlyz16-886Vki [facility] Comment on above:Performed By: #### VITAD, FETIBC, FERR #### [facility] [address] [address] [address] Andrey HargrovePotassium [Moles/Vol]3.2 mmol/LCritically low3.5-5.1[facility] ClinicComment on above:Performed By: #### VITAD, FETIBC, FERR #### [facility] [address] [address] [address] Andrey HargroveSodium [Moles/Vol]139 mmol/KMuybok936-047Gbf [facility] Comment on above:Performed By: #### VITAD, FETIBC, FERR #### [facility] [address] [address] [address] Andrey HargroveUrea nitrogen [Mass/Vol]51.0 mg/dLCritically high7.0-18.0[facility] ClinicComment on above:Performed By: #### VITAD, FETIBC, FERR #### [facility] [address] [place] [address] Dr. Andrey Mccarty nitrogen/Creatinine [Mass ratio]25.4 mg/mgNormalThe [facility] HealthComment on above:Performed By: #### VITAD, FETIBC, FERR #### [facility] [address] [place] [address] Dr. Andrey CeeD-19 Antigenon 37-77-0435TQHOE- AntigenHealthcare Worker?: Georgi Ignacio Reference Kenny Reference Negative [...] its performance Kenny Disclaimer characteristic determined by siOPTICA and Kenny Disclaimer validated at [facility]. This Kenny Disclaimer test has not been [...] is terminated or revoked sooner. PERFORMED BY: [place] [address] PATHOLOGIST INSECTICIDE MIXER JAMAL ALLEN M.D.NormalKettering Health Washington TownshipComment on above: Performed By: #### SOFIAPOS, COVID-19 KENNY #### [address] [address] USASofia Ag Positiveon 82-46-3918Cewod Ag PositivePositive Critically abnormalNegativeKettering Health Washington TownshipComment on above: Result Comment: This is a duplicate Kenny SARS Antigen (JOSE RAMON) result to be used for statistical tracking purpose only. PERFORMED BY: [place] [address] PATHOLOGIST INSECTICIDE MIXER JAMAL ALLEN M.D.Performed By: #### SOFIAPOS, COVID-19 KENNY #### [address] [address] USACoding Summary.on 85-09-3847Ysctcw Summary. CD:[id number]:[id number]+PGhlYWQ+VC2DTQOkR84buCRsqB0KO9mDXU4PNNTLCRUFCH2AUB1ih KG4ZNwbI9YmniMv [file] bGxh (more content not included)...[facility] HospitalConsent for Procedure/Surgeryon 03-99-0015Kbxowub for Procedure/Surgery [id number]#1.00CD:127NormalHolzer Health SystemFormson [id number]#1.00CD:127 [facility] HospitalLab Reportson 99-38-4809Ukz Reports [id number]#1.00CD:127[facility] HospitalPhysician Referralon 34-24-9968Uhtlsopwq Referral [id number]#1.00CD:127[facility] HospitalRAD - MISCon 21-67-9705WQE - MISC [id number]#1.00CD:[address] [place], [place] [address]RAD - Ultrasound Reporton 87-59-1595EXK - Ultrasound Report [id number]#1.00CD:127[facility] HospitalAmbulatory Clinical Summaryon 90-17-9034Rswkqgqcbc Clinical Summary {28-17-50-g6-69-qb-6w-60-b5-18-b8-91-52-c3-f8-10}CD:[id number] [facility] District Memorial HospitalPatient Educationon 87-16-1536Roihyki EducationUrology Hematuria, Adult Hematuria is blood in [...] these instructions at home: Medicines ? Take haac-bdo-gkkqlsm and prescription medicines only as told by [...] the blood stops without treatment. ? Take ralx-xbl-rocxseh and prescription medicines only as told by your health care provider. ? Drink enough fluid to keep your urine clear or pale yellow. This information is not intended to replace advice given to you by your health care provider. Make sure you discuss any questions you have with your health care provider. Document Released: 06/19/2006 Document Revised: 11/13/2019 Document Reviewed: 07/22/2017 [employer] Patient Education ? 2019 [employer].[facility] Urology Office/Clinic Noteon 92-64-4129Ssclwyr Office/Clinic NoteChief Complaint Cysto/UD HPI Staff Cysto/UD [...] The Urethra was dilated to: _18- 30 Kyrgyz with sounds. Specimens Removed: None Removal: Cystoscope [...] [facility] [address], [place] [address]- [phone] Additional Instructions: f/u PRN Patient Education Hematuria, Adult IDonna, personally scribed for Dr. Kwon on 12/15/2020 [...] 50,000 intl units (1.25 mg) oral capsule, [address] International_Unit= 1 cap(s), Monday Zioptan 0.0015% ophthalmic solution Allergies erythromycin (Anaphylactic reaction) penicillin (Hives) Social History Alco (more content not included)...[facility] HospitalComment on above:Result Comment: Electronically Signed By: Marcos KWON MD\.br\Date and Time Signed: 12/15/20 15:58 EDT\.br\Electronically Co-Signed By: Donna Hartley\.br\Date and Time Co-Signed: 12/15/20 15:56 EDTReminderson 12-14-2020 Reminders From: Augusta Singh To: EU - Clinical; Sent: 12/11/2020 13:29:41 EDT Show up: 12/14/2020 13:29:00 EDT Subject: Urine culture Reminder/Recall Urine Culture PRW reviewed positive culture.[facility] HospitalC Urineon 32-82-2586Fxsgqvdz identified Cx Nom (U)Microbiology PROCEDURE: Urine Culture [...] Locations R1: [facility] performed at: [facility], [address] [place] [address], [address] , [place], NfnrusIdytvaJoint Township District Memorial HospitalComment on above:Performed By: #### [id number] ####[facility] [address] [place], [place] [address]Ufmkxqxyis Clinical Summaryon 25-13-0875Ltzkhupizz Clinical Summary {07-75-1j-b8-16-tl-40-q6-3m-7f-u1-mf-d3-6c-b8-cc}CD:570162IzicnoGnzfwqJoint Township District Memorial HospitalAmbulatory Clinical Summary {09-7k-yu-31-22-73-1x-0s-el-35-0v-3j-8d-13-29-0f}CD:046234SwrmovVrffreJoint Township District Memorial HospitalAmbulatory Clinical Summary {5o-8j-2m-87-5t-9k-04-9u-12-33-69-9w-2b-c5-e6-1f}CD:684482RpsrofZbmjxeJoint Township District Memorial HospitalPatient Educationon 84-51-9258Gkoglse EducationUrology Hematuria, Adult Hematuria is blood in [...] these instructions at home: Medicines ? Take dshz-zme-nimgjoh and prescription medicines only as told by [...] the blood stops without treatment. ? Take lyda-chm-cnbqgvd and prescription medicines only as told by your health care provider. ? Drink enough fluid to keep your urine clear or pale yellow. This information is not intended to replace advice given to you by your health care provider. Make sure you discuss any questions you have with your health care provider. Document Released: 06/19/2006 Document Revised: 11/13/2019 Document Reviewed: 07/22/2017 ElseKuailexue Patient Education ? 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 Jenkins due to Hematuria. Pt states that since the End of October she has been feeling a slight squeeze, no pain associated with this. Pt had a Renal US done at [facility]. Pt states that she has a [...] Kwon. Follow-up With When Contact Information CHER VIGILMarcos, URL [address] [place] [phone] Additional Instructions: Patient Education Hematuria, Adult I, [...] 100 mg Tab amLOD (more content not included)...[facility] HospitalComment on above:Result Comment: Electronically Signed By: Marcos KWON MD\.br\Date and Time Signed: 12/11/20 11:17 EDT\.br\Electronically Co-Signed By: Regla Pyle MA\.br\Date and Time Co-Signed: 12/11/2110:12 EDTLab Reportson 20-44-1701Yru [id number]#1.00CD:127Normal [facility] SystemLab Reports [id number]#1.00CD:127NoKindred Hospital LimaRAD - Ultrasound Reporton 36-45-6676WNL - Ultrasound Report [id number]#1.00CD:127[facility] HospitalIntraOperative Documentson 81-06-5120NfsilCbymbxwco Documents [id number]#1.00CD:127JoselinKindred Hospital LimaMessage from Medicareon 34-79-9065Zuxgxcq from Medicare [id number]#1.00CD:127JoselinKindred Hospital LimaCoding Summary.on 78-31-2078Sswuum Summary.CODING DATE: 05/06/2020 FINAL [facility] STATUS: Home (Routine DC) PAYOR: Medicare [...] PROC APC STAT DESCRIPTION DOCTOR NAME DATE 88927 5113 J1 Arthroscopy, Vinita han DO, Michael T 05/01/2020 surgical; with meniscectomy (medial OR lateral, including any meniscal shaving) including debridement/shaving of articular cartilage (chondroplasty), same or separate compartment(s), when performed LT Left side (used to identify procedures performed on the left side of the body) 07669 Anesthesia for open or Gurmeet Aldridge Jr, DO 05/01/2020 surgical arthroscopic procedures on knee joint; not otherwise specified NOTE: The code number assigned matches the documented diagnosis and / or procedure in the patient's chart. However, the narrative phrase printed from the coding software may appear abbreviated, or result in slightly different terminology. Revised Coded By: Carmita Bowers Revised Date Saved: 05/06/2020 11:55 amNMercy Health Willard Hospital Insurance Correspondence Officeon 67-74-2080Dbhhnpcex Correspondence Office [id number]#1.00CD:127[facility] HospitalMain OR Intraoperative Recordon 05-78-8741Fvfz OR Intraoperative Record IntraOp Document Type FT Summary Primary Physician: David Talamantes DO Finalized Date/Time: 05/05/20 14:09:46 Pt. Name: CLAUDIA ESTRELLA James/Sex: 1950 Female Med Rec #: [id number] Physician: David Talamantes DO Financial #: [id number] Pt. Type: O Room/Bed: [place] [address] Admit/Disch: 05/01/20 11:43:14 - 05/04/20 12:35:00 Institution: [...] Role Performed Anesthesiologist of Surgeon - Primary Wall Washer - Primary Record Time In 05/01/20 14:26:00 05/01/20 14:39:00 05/01/20 14:26:00 Time Out 05/01/20 15:04:00 05/01/20 15:04:00 05/01/20 15:04:00 Procedure KNEE ARTHROSCOPY(Left) KNEE ARTHROSCOPY(Left) KNEE ARTHROSCOPY(Left) Comments Last Modified By: Edgar RN, Viky Hernández RN, Viky Hernández RN, Viky Mcdonough 05/01/20 15:04:35 05/01/20 15:04:35 05/01/20 15:04:35 Entry 4 Entry 5 Entry 6 Case Attendee Maxim WU, Augusta Castro MICROBIOLOGY LAB MANAGER, Leatha Flowers RN, CNOR, Cee Role Performed Wall Washer - Primary Scrub - Primary Wall Washer - Relief Time In 05/01/20 14:26:00 05/01/20 [...] Given Participants David Talamantes DO, Coy RN, Emily A, Chapin RN, Matthew Crain CST, Leatha Samuels [...] 1 - Clean Last Modified By: Viky Hernádnez RN 05/01/20 15:04:34 General Case Data FT [...] and tissue Entry 1 Skin Integrity Intact, [place], Warm, and Skin Abnormality No Dry Outcomes Met? Yes Last Modified By: Viky Hernández RN 05/01/20 14:46:48 Post-Care Text: The patient is free from signs and symptoms of injury caused by extraneous objects Patient Positioning FT Pre-Care Text: Identifies physical alterations that require additional precautions for procedure-specific positioning, verifies presence of prosthetics or corrective (more content not included)... [facility] HospitalProgress Note-Physicianon 90-42-5125Fmfuputo Note-PhysicianPatient: CLAUDIA ESTRELLA Age: 70 years Sex: [...] volume (mL): 1,000, 68.3 kg, 1.64, m2 Kite 5/325 Tab: 1 tab(s), Tab, Oral, q4hr [...] Problems DM kidney disease / SNOMED CT 820706106 / Confirmed PVD (peripheral vascular disease) / SNOMED CT 7019919110 / Confirmed MMT (medial meniscus tear) / SNOMED CT 845304686 / Confirmed Resolved: Ocular herpes zoster / SNOMED CT 178128129 Resolved: HTN (hypertension) / SNOMED CT 2544317454 Canceled: Diabetes / SNOMED CT 240455658 Histories Past Medical History: No active or resolved past medical history items have been selected or recorded. Family History: No family history items have been selected or recorded. Procedure history: Right eye cataract extraction and insertion of intraocular lens (7357523151) on 11/19/2019 at 69 Years. Cataract extraction and insertion of intraocular lens (1095432161) on 11/06/2019 at 69 Years. Comments: 11/06/2019 14:13 EDT - Loreto Peralta RN Left Appendectomy (528892267). section x2 (80897764). Cholecystectomy (70060230). Anesthesia for laparoscopic procedure on lower abdomen (60215637). Cheilectomy of tarsal foot (1356646774). Social History Social & Psychosocial Habits Alcohol [...] results Radiology results ECG interpretation Condition Plan [place] [employer] Anesthesiologists (ASA) physical status classification: Class III. Anesthetic Preoperative (more content not included)...[facility] HospitalComment on above:Result Comment: Electronically Signed By: [...] Problems DM kidney disease / SNOMED CT 662570126 / Confirmed PVD (peripheral vascular disease) / SNOMED CT 6460122353 / Confirmed MMT (medial meniscus tear) / SNOMED CT 341184489 / Confirmed Resolved: Ocular herpes zoster / SNOMED CT 658921878 Resolved: HTN (hypertension) / SNOMED CT 3879127593 Canceled: Diabetes / SNOMED CT 438446805 Physical Examination Vital Signs 05/01/2020 16:58 EDT [...] levels. will F/U Plan Transfer/ Discharge: Condition stable.[facility] HospitalComment on above:Result Comment: Electronically Signed By: Luis Carlos Gomes DO, Gurmeet Mcdonough\.br\Date and Time Signed: 05/05/20 08:22 ESTCapillary Glucose POCon 67-78-6356Lccujdl [Mass/Vol]149 mg/eFBejl41-06Gfpnco[address] [place], [place] [address]Comment on above:Result Comment: Notified RN/MDPerformed By: #### [id number] #### [facility] [address] [place], [place] [address]Orjqspa [Mass/Vol]127 mg/oXJzha13-40Fghdif[address] Comment on above:Result Comment: Notified RN/MDPerformed By: #### [id number] #### [facility] [address] [place], [place] [address]Icpbkol for Anesthesiaon 11-92-2110Dnsbxei for Anesthesia [id number]#1.00CD:[address] [place], [place] [address]Discharge Instructionson 19-49-7273Kmsibhovr Instructions [id number]#1.00CD:127[facility] HospitalInpatient Clinical Summaryon 32-42-8806Hrgqbjzgm Clinical Summary [address] [address] Clinical Summary Person Information: Name: CLAUDIA ESTRELLA Age: 70 Years : 1950 Sex: Female PCP: JOHN PERDOMO DO Marital Status: Race: White Ethnicity: Non- or Language: Japanese Visit Id: Visit Reason: LEFT KNEE BONE BRUISE, MEDIAL MENISCUS TEAR, EFFUSION Speciality: Acuity: Enc Type: Observation Med Service: Surgery Arrival: 05/01/2020 11:43:14 Discharge: Dispo Type: Address: [address] [place] [address] Provider Notes: Diagnosis: 1:Other chest pain; 2:Hypertension; [...] up: With: Address: When: Follow up with Audio Visual Collections Coordinator Within 1 week With: Address: When: JOHN PERDOMO [address] [place] [address] Business (1) With: Address: When: David Talamantes [address] [place] [address] Business (1) Comments: Keep scheduled appointment Patient Education Information: Post Op Patient Instructions - FT (Custom); Knee Cryocuff Patient Instructions - FT (Custom); Talamantes - Knee Arthroscopy (Custom) (CUSTOM)[facility] HospitalInpatient Patient Summaryon 81-59-6024Tgkoejltw Patient Summary [address] [address] Patient Discharge Instructions PERSON INFORMATION [...] up: With: Address: When: Follow up with Audio Visual Collections Coordinator Within 1 week With: Address: When: [facility] [place] [id number] Business (1) With: Address: When: David Talamantes [address] [place] [address] Business (1) Comments: Keep scheduled appointment [...] DURING YOUR HOSPITAL STAY New Medications [id number], [address], [place] [id number], [phone] atorvastatin (Lipitor 20 mg Tab) 1 Tablets [...] ALL TIMES. amlodipine (amLO (more content not included)...[facility] Interdisciplinary Note - PTon 46-02-1355Jcqacwadartthqbdt Note - PTPT Screen performed. Pt was able to stand and ambulate throughout room without difficulty and without an AD. Pt also demos appropriate ROM to knee. Would recommend to f/u with Ortho to determine if therapy is needed in the future, but no PT needed at this timeNoKindred Hospital LimaIntraOperative Documentson 05-04-2020 IntraOperative [id number]#1.00CD:127 [facility] HospitalIntraOperative Documents [id number]#1.00CD:[address] [place], [place] [address]Message from Medicareon 71-93-9596Wpxzder from Medicare [id number]#1.00CD:[address] [place], [place] [address]Monitor Recordon 51-60-8406Ovomquf Record [id number]#1.00CD:[address] [place], [place] [address]itor [id number]#1.00CD:127Wilson HealthMonitor Record [id number]#1.00CD:[address] [place], [place] [address]Patient Education - Texton 81-32-0607Tcorylb Education - Text [place], [place] [facility] DISCHARGE INSTRUCTIONS: KNEE ARTHROSCOPY [...] your appointment. David Talamantes, DO [facility] [address] [place] [address] Reviewed: 10-08NoKindred Hospital LimaPreoperative Documentson 28-66-0762Hkxidzvguglk Documents [id number]#1.00CD:127[facility] HospitalPreoperative [id number]#1.00CD:127 [facility] HospitalPrescriptions/Work Noteson 05-04-2020 Prescriptions/Work [id number]#1.00CD:127 NormalHolzer Health SystemCapillary Glucose POCon 19-88-8972Hbohfvw [Mass/Vol]183 mg/yISyjq03-16Jpfnqs[address] [place], [place] [address]Comment on above: Performed By: #### [id number] #### [facility] [address] [place], [place] [address]Atejzzy [Mass/Vol]155 mg/bSDioc01-89TjzpngHolzer Health System Comment on above:Performed By: #### [id number] #### [facility] [address] [place], [place] [address]Dtvngrq [Mass/Vol]113 mg/cPAwfv36-91Wdelmk[address] Comment on above:Result Comment: Notified RN/MDPerformed By: #### [id number] ####[facility] [address] [place] [address] Glucose [Mass/Vol]112 mg/zAZhzs81-99GsedynHolzer Health SystemComment on above: Performed By: #### [id number] #### [facility] [address] [place], [place] [address]Voflxxl [Mass/Vol]85 mg/oMUprhah33-04Jtectu46 Garrett StreetComment on above:Result Comment: Notified RN/MDPerformed By: #### [id number] #### [facility] [address] [place], [place] [address]Sthtxym [Mass/Vol]59 mg/uOLrgcdt04-36KpulqlHolzer Health SystemComment on above:Result Comment: Notified RN/MDPerformed By: #### [id number] #### [facility] [address] [place], [place] [address]Vpaclblvzjqg Noteon 08-73-3770Lgctzhcwqyfn NoteHOSPITAL REGULATIONS: ALL Positive Important Negative Findings [...] left knee and elevate. Eh Carter DO [facility] Dictated: 05/02/2020 #[id number] Typed: 05/02/2020 #[id number] cc: DO David Nieto D.O.[facility] HospitalComment on above:Result Comment: Electronically Signed By: Eh Carter DO\.br\Date and Time Signed: 05/03/20 10:27 ESTMonitor Recordon 75-71-7684Kqvbili Record [id number]#1.00CD:127[facility] HospitalMonitor [id number]#1.00CD:127Normal [facility] CenterOperative Reporton 92-49-1004Znxcmbkkv ReportDate of Surgery: 05/01/2020 SURGEON: David Talamantes [...] patient's condition satisfactory David Talamantes D.O. [facility] Dictated: 05/01/2020 #[id number] Typed: 05/01/2020 #[id number] cc: Randa Lanier D.O.[facility] HospitalComment on above:Result Comment: Electronically Signed By: David Talamantes DO\.br\Date and Time Signed: 05/03/20 09:22 ESTProgress Note-Physicianon 59-40-1801Wkhlsrka Note-PhysicianAssessment/Plan 1. Other chest pain (R07.89: Other [...] mg/dL High (05/03/20 12:18:00) POC Device SN: [id number] (05/03/20 12:18:00) POC Username: JOSESITO BROWN (05/03/20 [...] 0.4 mg= 1 tab(s), SubLingual, q5min, PRN Kite 5/325 Tab, 1 tab(s), Oral, q4hr, PRN [...] Restasis 0.05% ophthalmic emulsion, 1 drop(s), Eye-Both, [place] [facility] SystemComment on above:Result Comment: Electronically Signed By: [...] mg/dL High (05/03/20 07:32:00) POC Device SN: [id number] (05/03/20 07:32:00) POC Username: POC Username (05/03/20 [...] to obtain her records from her primary animal physiology teacher once 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 Continue [...] Push, q2hr, PRN L (more content not included)...NormalHolzer Health SystemComment on above:Result Comment: Electronically Signed By: Eleuterio VIGIL, John Olson\.rashmi\Date and Time Signed: 05/03/20 07:45 ESTCapillary Glucose POCon 83-62-7198Akiqzft [Mass/Vol]212 mg/eOIpdg00-23TbbftuHolzer Health SystemComment on above: Performed By: #### [id number] #### [facility] [address] [place], [place] [address]Dqdjvex [Mass/Vol]138 mg/nMIvew03-64CoqcnxHolzer Health System Comment on above:Performed By: #### [id number] #### [facility] [address] [facility], [place] [address]Ojptmft [Mass/Vol]139 mg/qVDxeg55-02XsdjrsHolzer Health System Comment on above:Performed By: #### [id number] #### [facility] [address] [place], [place] [address]Mandhad [Mass/Vol]105 mg/aOWrbt81-50CdveyfHolzer Health System Comment on above:Performed By: #### [id number] #### [facility] [address] [place], [place] [address]Rrpwblm [Mass/Vol]233 mg/lPBfgg59-88KqnbtdHolzer Health System Comment on above:Result Comment: Notified RN/MDPerformed By: #### [id number] ####[facility] [address] [place], [place] [address]Isqlf Panelon 83-62-4843Wahoxbhhzft [Mass/Vol]160 mg/jBPfvmws588-024FhvmtoHolzer Health SystemComment on above:Performed By: #### [id number] #### [facility] [address] [place], [place] [address]Ilgyobxtiqc in HDL [Mass/Vol]49 mg/dLInvalid Interpretation CodeHolzer Health SystemComment on above:Result Comment: HDL > or equal to 60 mg/dL: Low cardiovascular risk HDL < 40 mg/dL : High cardiovascular riskPerformed By: #### [id number] #### [facility] [address] [place], [place] [address]Ofiwcgxizzg in LDL [Mass/Vol]98 mg/dLNormal<=129Holzer Health SystemComment on above:Performed By: #### [id number] #### [facility] [address] [place], [place] [address]Ccwrmxzkztd in VLDL [Mass/Vol]12 mg/dLNormal7-40Holzer Health SystemComment on above:Performed By: #### [id number] #### [facility] [address] [place], [place] [address]Yyvphglbguxr [Mass/Vol]61 mg/dLNormal<=149Holzer Health SystemComment on above:Performed By: #### [id number] #### [facility] [address] [place], [place] [address]Haxaufq Recordon 52-43-4682Wjyneuy Record [id number]#1.00CD:127NormalHolzer Health SystemProgress Note-Physicianon 55-50-2430Ijfbqdho Note-PhysicianAssessment/Plan 1. Other chest pain (R07.89: Other [...] 29.6 pg (05/01/20 18:27:00) (more content not included)...NormalHolzer Health SystemComment on above: Result Comment: Electronically Signed By: JUN VIGIL, Nhung\.br\Date and Time Signed: 05/02/20 10:00 EDTTroponin 3 Hr.on 43-27-0885Ucpqkcvn I.cardiac [Mass/Vol]3.60 pg/mLLow10.10-27.10Holzer Health SystemComment on above: Result Comment: The 95% CI (Confidence Interval) PPV (Positive Predictive Value) for myocardial infarction in females is 38 pg/mL, in males 51 pg/mL. The results should be used in conjunction with clinical conditions of myocardial infarction. (Access High Sensitivity Troponin I Instructions For Use, [employer]., January 2018)Performed By: #### [id number] #### [facility] [address] [place], [place] [address]Pmpicypg 6 Hr.on 46-63-4946Jgpzaylw I.cardiac [Mass/Vol]3.90 pg/mLLow10.10-27.10Holzer Health SystemComment on above:Result Comment: The 95% CI (Confidence Interval) PPV (Positive Predictive Value) for myocardial infarction in females is 38 pg/mL, in males 51 pg/mL. The results should be used in conjunction with clinical conditions of myocardial infarction. (Access High Sensitivity Troponin I Instructions For Use, [employer]., January 2018)Performed By: #### [id number] #### [facility] [address] [place], [place] [address]Rnkhrdny 9 Hr.on 83-45-1580Eoxucjkg I.cardiac [Mass/Vol]5.10 pg/mLLow10.10-27.10Holzer Health SystemComment on above:Result Comment: The 95% CI (Confidence Interval) PPV (Positive Predictive Value) for myocardial infarction in females is 38 pg/mL, in males 51 pg/mL. The results should be used in conjunction with clinical conditions of myocardial infarction. (Access High Sensitivity Troponin I Instructions For Use, Wilfrido Ripley, January 2018)Performed By: #### [id number] #### [facility] [address] [place], [place] [address]DB Carotid Duplex Bilateralon 55-82-6498ND Carotid Duplex BilateralExam Date/Time: 05/02/2020 13:21 EDT [...] 199/45 Prox ECA (cm/sec): 199/15 Vert. Antegrade YesNormalHolzer Health SystemAuto Diffon 05-01-2020 Basophils/100 WBC (Bld)0.4 %Normal0.0-2.0Holzer Health SystemComment on above:Order Comment: Order Added by Discern Expert.Performed By: #### [id number], [id number], [id number], [id number] #### [facility] [address] [place] [address]Hkyqqhxln/Leukocytes Auto (Bld) [Pure # fraction]0.0 E9/LNormal 0.0-0.2FSt. Elizabeth HospitalComment on above:Order Comment: Order Added by Discern Expert.Performed By: #### [id number], [id number], 8593186, [id number] #### [facility] [address] [place], [place] [address]Qqqofoxqrac/100 WBC (Bld)1.2 %Normal0.0-8.0Holzer Health SystemComment on above:Order Comment: Order Added by Discern Expert.Performed By: #### [id number], [id number], 3753907, [id number] #### [facility] [address] [place], [place] [address]Ecxydpsxnmp/Leukocytes Auto (Bld) [Pure # fraction]0.1 E9/L Normal0.0-0.5FSt. Elizabeth HospitalComment on above:Order Comment: Order Added by Discern Expert.Performed By: #### [id number], [id number], 3051805, [id number] #### [facility] [address] [place] [address]Vqgtrotyrhr/100 WBC (Bld)9.7 %Low14.0-50.0Holzer Health SystemComment on above:Order Comment: Order Added by Discern Expert.Performed By: #### [id number], 83537666, 4303492, [id number] #### [facility] [address] [place] [address]Rmmvcmeyucy/Leukocytes Auto (Bld) [Pure # fraction]1.0 E9/L Normal1.0-4.0Holzer Health SystemComment on above:Order Comment: Order Added by Discern Expert.Performed By: #### [id number], [id number], 4656196, 1546140 #### [facility] [address] [place] [address]Anqgzqtmc/100 WBC (Bld)4.2 %Normal4.0-14.0Holzer Health SystemComment on above:Order Comment: Order Added by Discern Expert.Performed By: #### [id number], [id number], 7673364, 0299176 #### [facility] [address] [place] [address]Euajjhisy/Leukocytes Auto (Bld) [Pure # fraction]0.4 E9/LNormal 0.2-1.0Holzer Health SystemComment on above:Order Comment: Order Added by Discern Expert.Performed By: #### [id number], 23262987, 4894936, [id number] #### [facility] [address] [place] [address]Xtsvvdbpjlg/100 WBC (Bld)84.5 %High36.0-75.0Holzer Health SystemComment on above:Order Comment: Order Added by Discern Expert. Performed By: #### [id number], [id number], 5016363, 9959437 #### [facility] [address] [place] [address]Eenatphzeef/Leukocytes Auto (Bld) [Pure # fraction]8.9 E9/LHigh 2.0-7.5FSt. Elizabeth HospitalComment on above:Order Comment: Order Added by Discern Expert.Performed By: #### [id number], 13100258, 7809951, 4444822 #### [facility] [address] [place], [place] [address]VIRnm 31-60-1165Jtrbklu [Mass/Vol]8.9 mg/dLNormal8.9-11.1FSt. Elizabeth HospitalComment on above:Performed By: #### [id number], 70789154, 9293485, 6352092 #### [facility] [address] [place], [place] [address]Azdph gap [Moles/Vol]10 mmol/LNormal6-16Holzer Health SystemComment on above:Performed By: #### 2286054, 32806024, 2699687, 0789186 #### [facility] [address] [place], [place] [address]Vbxawsgh [Moles/Vol]103 mmol/ZLuqmin664-973HdqqazHolzer Health SystemComment on above:Performed By: #### 7581432, 20401297, 0913453, 4464739 #### [facility] [address] [place], [place] [address]YI2 [Moles/Vol]24 mmol/JMiatbp46-59MzjpymHolzer Health System Comment on above:Performed By: #### 0140050, 21467727, 9927517, 1798303 #### [facility] [address] [place], [place] [address]Acwpqmsoyx [Mass/Vol]1.6 mg/dLHigh0.5-1.3FSt. Elizabeth HospitalComment on above:Performed By: #### 6248909, 53381835, 2146243, 7280597 #### [facility] [address] [place], [place] [address]Lyccrij [Mass/Vol]167 mg/uLKxswhe15-163CvyuljHolzer Health SystemComment on above:Result Comment: If this glucose result represents a fasting glucose, interpretation should refer tothe following reference range: 55-99 mg/dLPerformed By: #### 0466957, 83118140, 7357392, 9486065 #### [facility] [address], [place] [address]Ajrmhqahx [Moles/Vol]3.9 mmol/LNormal3.5-5.3FSt. Elizabeth HospitalComment on above:Performed By: #### 6399720, 58339556, 0873037, 2878382 #### [facility] [address], [place] [address]Hweqbz [Moles/Vol]133 mmol/GYui720-923GjayjlHolzer Health SystemComment on above:Performed By: #### 3157025, 90939323, 1113917, 0900576 #### [facility] [address], [place] [address]Obms nitrogen [Mass/Vol]34 mg/dLHigh5-21[facility] Health SystemComment on above:Performed By: #### 6446630, 42387415, 5380071, 2322879 #### [facility] [address], [place] [address]Sdpz nitrogen/Creatinine [Mass ratio]21 No CpuzrZcah44-16FeqhhqHolzer Health SystemComment on above:Performed By: #### 5258628, 70058057, 8793533, 9174237 #### [facility] [address], [place] [address]RKI w/ Auto Diffon 62-52-3453Zsacorvkxap distribution width (RBC) [Ratio]13.0 %Rzenbw74.9-14.2FSt. Elizabeth HospitalComment on above: Performed By: #### 7756470, 78802731, 2393567, 8435910 #### [facility] [address], [place] [address]Yjlilxgasl (Bld) [Volume fraction]32.4 %Low34.0-46.0Hol[facility] Health SystemComment on above:Performed By: #### 0934579, 57574623, 7233612, 7362482 #### [facility] [address] [place] [address]Gihyzbsvtc (Bld) [Mass/Vol]11.2 g/dLLow12.0-16.0Hol[facility] Health SystemComment on above:Performed By: #### 5976850, 68344273, 9234285, 8508990 #### [facility] [address] [place] [address]LBG (RBC) [Entitic mass]29.6 pcSuofgp53.0-34.0[facility] Health SystemComment on above:Performed By: #### 9478521, 25083075, 6332139, 5262685 #### [facility] [address] [place] [address]CHOI (RBC) [Mass/Vol]34.6 g/qZTywjxc17.4-36.0[facility] Health SystemComment on above:Performed By: #### 6925637, 41198419, 7766882, 5576698 #### [facility] [address] [place] [address]OKZ (RBC) [Entitic vol]85.5 gXGutnab73.0-100.0[facility] Health SystemComment on above:Performed By: #### 2649435, 42916104, 6550539, 2566000 #### [facility] [address] [place] [address]Omhtcnrq mean volume (Bld) [Entitic vol]8.4 fLNormal6.4-10.8 [facility] SystemComment on above:Performed By: #### 1112172, 82154214, 3255013, 8484617 #### [facility] [address] [place] [address]Trledpawx (Bld) [#/Vol]242.0 E9/NBiouae337.0-500.0[facility] Health SystemComment on above:Performed By: #### 8407129, 47719424, 2377218, 3841579 #### [facility] [address], [place] [address]GUD (Bld) [#/Vol]3.8 E12/LLow4.3-5.9[facility] Comment on above:Performed By: #### 4016481, 29777554, 7611184, 4669862 #### [facility] [address], [place] [address]IEP corrected for nucl RBC Auto (Bld) [#/Vol]10.5 E9/LNormal 4.0-11.0Hol[facility] Health SystemComment on above:Performed By: #### 7610310, 68696640, 0311938, 7963692 #### [facility] [address], [place] [address]Eezpdppym Glucose POCon 29-22-6651Nzsbqgr [Mass/Vol]84 mg/dL Mqzshu21-77WutjjjHolzer Health SystemComment on above:Result Comment: Repeat TestPerformed By: #### [id number] #### [facility] [address], [place] [address]Maapwyf [Mass/Vol]88 mg/aRSjqlny29-35LybodkHolzer Health SystemComment on above:Result Comment: Repeat TestPerformed By: #### [id number] #### [facility] [address], [place] [address]Rxoned Summary.on 65-94-2536Dgtuqw Summary.CODING DATE: 05/01/2020 FINAL [facility] STATUS: Home (Routine DC) PAYOR: Medicare [...] Gabriela Houston CphT Date Saved: 05/01/2020 08:36 amNMercy Health Willard HospitalCoding Summary. CODING DATE: 04/25/2020 [facility] STATUS: Home (Routine DC) PAYOR: [...] Gabriela Houston CphT Date Saved: 04/25/2020 04:17 pmNMercy Health Willard HospitalConsent for Treatmenton 95-00-3231Sxkwdtl for Treatment [id number]#1.00CD:127NormHarrison Community HospitalConsent for [id number]#1.00CD:127 [facility] HospitalH&P Updateon 05-01-2020H&P Update [id number]#1.00CD:127NoKindred Hospital LimaMain OR PACU I Recordon 14-12-9264Jybl OR PACU I RecordPACU Phase I Document Type FT Summary Primary Physician: David Talamantes DO Finalized Date/Time: 05/01/20 18:04:55 Pt. Name: CLAUDIA ESTRELLA/Sex: 1950 Female Med Rec #: [id number] Physician: David Talamnates DO Financial #: [id number] Pt. Type: Sharonda Room/Bed: [place] [address] Admit/Disch: 05/01/20 11:43:14 - Institution: Case Times [...] Signatures Signed By: Ju Bates RN 05/01/20 18:04NoBlayne [place] [facility] CenterMain OR PACU II Recordon 76-51-3324Hhyu OR PACU II RecordPACU Phase II Document Type FT Summary Primary Physician: David Talamantes DO Finalized Date/Time: 05/01/20 20:09:08 Pt. Name: SAMEERCLAUDIA/Sex: 1950 Female Med Rec #: [id number] Physician: David Talamantes DO Financial #: [id number] Pt. Type: O Room/Bed: 06 Admit/Disch: 05/01/20 11:43:14 - Institution: Case Times [...] Signatures Signed By: Yessy Curran RN 05/01/20 20:09NoKindred Hospital LimaMain OR Preoperative Recordon 89-15-9893Uikw OR Preoperative RecordPreOp Document Type FT Summary Primary Physician: David Talamantes DO Finalized Date/Time: 05/01/20 14:45:06 Pt. Name: CLAUDIA ESTRELLA/Sex: 1950 Female Med Rec #: [id number] Physician: David Talamantes DO Financial #: [id number] Pt. Type: A Room/Bed: [place] [address] Admit/Disch: 05/01/20 11:43:14 - Institution: Case Times [...] Signatures Signed By: Viky Hernández RN 05/01/20 14:45NoC[facility] Clinic Avon Hospitalitor Recordon 31-37-0933Kthvaod [id number]#1.00CD:127 [facility] Record [id number]#1.00CD:127NormalPaulding County Hospital Radiologyon 63-26-0099Ecamvyt Radiology [id number]#1.00CD:127Jorge L [place] [facility] CenterOutshenderson county community hospital Recordson 51-76-7799Ldlkaus Records [id number]#1.00CD:127[facility] HospitalProgress Note-Nurseon 08-38-9704Wstsqicu Note-NurseAt 1653--Gisela poct stated she needed a nurse in [place] 12 stat. This nurse arrived to room. Patient s tated she has CP 10/10 midsternal, heaviness. Jhoana [...] 1829--Attempted to call Dr. Talamantes--[facility]--This nurse spoke with Dr. Carter (avionics systems engineer physician), informed Dr. Carter reason for admission and patient's room number. Dr. Aldridge at bedside at 1705--Physician looked at patient EKG strip that was printed.[facility] HospitalProgress Note-Zdfup7168: pt. medicated with 0.4mg Dilaudid per PACU [...] Krishnamurthy. pts. dtr. also at bedside and updated.[facility] HospitalTroponin 0 Hr.on 05-31-7849Nwxoroer I.cardiac [Mass/Vol]4.10 pg/mLLow10.10-27.10Holzer Health SystemComment on above:Result Comment: The 95% CI (Confidence Interval) PPV (Positive Predictive Value) for myocardial infarction in females is 38 pg/mL, in males 51 pg/mL. The results should be used in conjunction with clinical conditions of myocardial infarction. (Access High Sensitivity Troponin I Instructions For Use, Wilfrido Jose, January 2018)Performed By: #### [id number] #### [facility] [place] [facility] [address], [place] [address]wRVOqj 56-23-5853SLZ/1.73 sq M.predicted among blacks MDRD (S/P/Bld) [Vol rate/Area]39 mL/min/1.73 m2Low>=59[facility] Comment on above:Order Comment: Order added by Discern Expert.Result Comment: eGFR is race adjusted. AA=.Performed By: #### 0201156, 79638907, 3308799, 4001446 #### [facility] [address], [place] [address]LMX/1.73 sq M.predicted among non-blacks MDRD (S/P/Bld) [Vol rate/Area]32 mL/min/1.73 m2Low>=59Hol[facility] Health SystemComment on above: Order Comment: Order added by Discern Expert.Result Comment: Chronic kidney disease could be indicated at eGFR's of less than 60 mL/min/1.73m2. Kidney failure is indicated at less than 15 mL/min/1.73m2.Performed By: #### 2995169, 04566676, 3176540, 5962115 #### [facility] [address], [place] [address]Hvhuli Summary.on 91-07-7312Foqowi Summary.CODING DATE: 04/28/2020 FINAL [facility] STATUS: Home (Routine DC) PAYOR: Medicare [...] Gabriela Houston CphT Date Saved: 04/28/2020 09:19 amNormalHolzer Health SystemOutpatient Surgery Discharge Instructionon 65-12-9427Ehhtkrokse Surgery Discharge Instruction [address] [address] Patient Discharge Instructions PERSON INFORMATION Name: CLAUIDA ESTRELLA Date of : 1950 Current Date: [...] ESTRELLA, have received the attached patient education materials/instructions and have verbalized understanding: May we do a follow up call? Yes No I was present when discharge instructions were given Patient Signature Date Clinican/Nurse Signature Date Follow up: With: Address: When: David Talamantes [address] [place] [phone] Business (1) Comments: Keep scheduled appointment Type Location Start Finish State Surgery [facility] 05/01/2020 2:15 PM 05/01/2020 2:55 PM Confirmed Pharmacy Information: Thank you for choosing [facility] HERE ARE THE MEDICATION CHANGES THAT [...] tab Oral Daily. PATIENT EDUCATION INFORMATION Instructions: [place], [place] [facility] DISCHARGE INSTRUCTIONS: KNEE ARTHROSCOPY [...] is the result of (more content not included)...[facility] HospitalConsent for Procedure/Surgeryon 97-78-0667Tkcvvmr for Procedure/[id number]#1.00CD:127Normal [facility] SystemOutside Recordson 67-29-1045Mriqjrr Records [id number]#1.00CD:127[facility] HospitalPriority Order-Trina 07-53-8967Psyzqlyr Order-STATCommentInvalid Interpretation CodeHolzer Health SystemComment on above:Result Comment: Received Performed at: [facility] [address] [facility] [place] [id number] MD Garrison AnaghPerformed By: #### [id number] #### [facility] [address], [place] [address]RMBT-WfJ-8, NAAon 01-85-5207QBHM-CoV-2 (COVID-19) RNA JAYASHREE+probe Ql (Resp)Not detectedInvalid Interpretation CodeNot DetectedHolzer Health SystemComment on above:Result Comment: This nucleic acid amplification test was developed and its performance characteristics determined by [email or web address]. Nucleic acid amplification tests include PCR and [...] detected) result in this assay. Performed at: [email or web address] [address] [place] [facility], [place] [id number] MD Garrison AnaghPerformed By: #### [id number] #### [facility] [place] [facility] [address], [place] [address]FG Chest 2 Viewson 22-14-1096AF Chest 2 ViewsExam Date/Time: 04/24/2020 09:34 EDT [...] Matias George M.D. Transcribed by: LUDIN Technologist: RRBNormalHolzer Health SystemBUNon 98-34-8315Gbhl nitrogen [Mass/Vol]36 mg/dLHigh5-21[facility] Comment on above:Performed By: #### 71470599, 6159877, 8678182, 8674043, 9513831, 1212848 ####[address] [place], [place] [address]RZN w/Indiceson 55-23-6330Bivpvtigawo distribution width (RBC) [Ratio]13.0 %Dppsuz02.9-14.2FSt. Elizabeth HospitalComment on above: Performed By: #### 43397745, 8270011, 5708090, 7620202, 5431840, 0304605 ####[address] [address] Hematocrit (Bld) [Volume fraction]34.1 %Jtscgj78.0-46.0Hol[facility] Health SystemComment on above:Performed By: #### 19541909, 6364754, 2078591, 1176684, 2955222, 8948027 ####[facility] [address] [place] [address]Qwqohhsafs (Bld) [Mass/Vol]11.6 g/dLLow12.0-16.0[facility] Health SystemComment on above:Performed By: #### 35764979, 5568773, 6480693, 2732035, 1838670, 3085818 ####[address] [address]UEG (RBC) [Entitic mass]29.5 bbDduunz77.0-34.0Hol[facility] Health SystemComment on above:Performed By: #### 39383973, 6257609, 1713988, 9899200, 8263410, 2255116 ####[facility] [address] [place], [place] [address]IPKN (RBC) [Mass/Vol]34.1 g/uJCkgmtf42.4-36.0[facility] Health SystemComment on above:Performed By: #### 04781405, 0772179, 8188433, 9869804, 7023165, 0506303 ####[address] [address]MBN (RBC) [Entitic vol]86.5 cMJnygim41.0-100.0[facility] Health SystemComment on above:Performed By: #### 58646522, 4953243, 6168996, 7529575, 6806240, 2539361 ####[address] [address]Twlpefve mean volume (Bld) [Entitic vol]9.4 fLNormal6.4-10.8 [facility] Health SystemComment on above:Performed By: #### 17704540, 0552811, 0761328, 9404866, 8729905, 7925548 ####[address] [address]Nulfptprp (Bld) [#/Vol]246.0 E9/L Tobngg407.0-500.0Holzer Health SystemComment on above:Performed By: #### 76694607, 4754438, 1413351, 6012709, 1000585, 3973956 ####[address] [address]AJQ (Bld) [#/Vol]3.9 E12/LLow 4.3-5.9Hol[facility] Health SystemComment on above:Performed By: #### 59299590, 3986288, 5911401, 5111982, 7475965, 0770676 ####[address] [address]PBZ corrected for nucl RBC Auto (Bld) [#/Vol]10.0 E9/LNormal4.0-11.0[facility] Health SystemComment on above: Performed By: #### 27568267, 9304890, 1303787, 3702760, 9934873, 3576408 ####[address] [address] Consent for Treatmenton 93-91-9726Kucmnzx for Treatment [id number]#1.00CD:127NormalHolzer Health SystemCreatinineon 65-99-1257Wtwuiijwae [Mass/Vol]1.6 mg/dLHigh0.5-1.3FSt. Elizabeth HospitalComment on above:Performed By: #### 80741178, 1405794, 7476222, 5193786, 3860642, 5695482 ####[facility] [address] [place], [place] [address]Tnm Fastingon 41-41-3335Wlkaeyl [Mass/Vol]81 mg/dL Skowtb94-64WlnhtgHolzer Health SystemComment on above:Performed By: #### 71641724, 8658106, 9306881, 4087561, 6606951, 0497087 ####[facility] [address] [place], [place] [address]Ypblttg 25-06-0633Sprai gap [Moles/Vol]13 mmol/LNormal6-16Hol[facility] Health SystemComment on above: Performed By: #### 89631099, 3096132, 7977496, 8305102, 3493939, 0968802 ####[address] [place] [address] Chloride [Moles/Vol]103 mmol/EJwjrzx444-677DgnbadHolzer Health SystemComment on above:Performed By: #### 87003250, 7651536, 8855437, 6703179, 0807436, 1604176 ####[facility] [address] [place], [place] [address]MF2 [Moles/Vol]26 mmol/KBilljh29-07UiusanHolzer Health SystemComment on above: Performed By: #### 74995840, 1606538, 0039941, 3209860, 6139141, 0062659 ####[facility] [address] [place] [address] Potassium [Moles/Vol]3.9 mmol/LNormal3.5-5.3FSt. Elizabeth HospitalComment on above:Performed By: #### 05321251, 5972375, 1114025, 9383631, 1368589, 1515557 ####[facility] [place] [facility] [address] [place], [place] [address]Nzfaje [Moles/Vol]138 mmol/GUfeevl447-013VuhuegHolzer Health SystemComment on above:Performed By: #### 49451324, 7786260, 5894524, 1045827, 2503542, 2160465 ####[facility] [place] [facility] [address] [place], [place] [address]Ncvjujspw Orderon 13-74-0141Exacqswur Order [id number]#1.00CD:127NormalHolzer Health SystemeGFRon 78-74-1750ROH/1.73 sq M.predicted among blacks MDRD (S/P/Bld) [Vol rate/Area]39 mL/min/1.73 m2Low>=59Holzer Health SystemComment on above: Order Comment: Order added by Discern Expert.Result Comment: eGFR is race adjusted. AA=.Performed By: #### 92979960, 2238734, 2711028, 4270996, 8058867, 2583392 ####[facility] [address] [place], [place] [address]AKL/1.73 sq M.predicted among non-blacks MDRD (S/P/Bld) [Vol rate/Area]32 mL/min/1.73 m2Low>=59Hol[facility] Health SystemComment on above: Order Comment: Order added by Discern Expert.Result Comment: Chronic kidney disease could be indicated at eGFR's of less than 60 mL/min/1.73m2. Kidney failure is indicated at less than 15 mL/min/1.73m2.Performed By: #### 67058449, 5360047, 7427624, 7977808, 6241548, 1482430 ####[facility] [address] [place], [place] [address]Lxnlokuhm Orderon 00-15-9158Jzpctgykc [id number]#1.00CD:[address] [place], [place] [address]Physician Orderon 85-09-5000Utjnolpam Order [id number]#1.00CD:[address] [place] [address] Vital Signs Date TimeVital SignValuePerforming JzicidabtXnqrqgji86-51-8393 11:32-0400Body .32 cmDaniel Perdomo DO Work Phone: [phone] [place], [place] [address]10-21-2025 11:32-0400 Body mass index (BMI) [Ratio]26.1 kg/r4Qbjkfg Perdomo DO Work Phone: [phone]10-21-2025 11:32-0400 Body bmemgpilfcm67.3 [degF]John Perdomo DO Work Phone: [phone])159-[address] [place], [place] 2121710-21-2025 11:32-0400 Body potsae23.75 kgDaniel Perdomo DO Work Phone: [phone])044-[address] [place], [place] 212[address]10-21-2025 11:32-0400 Diastolic blood ipuuomsd10 mm[Hg]John Perdomo DO Work Phone: 6(363)529-[address] [place], [place] [address]10-21-2025 11:32-0400 Heart rate76 /minDaniel Perdomo DO Work Phone: 6(400)290-[address] [place], [place] 212[address]10-21-2025 11:32-0400 Respiratory rate18 /minDaniel Perdomo DO Work Phone: [phone])974-[address] [place], [place] 2121710-21-2025 11:32-0400 SaO2% (BldA) [Mass fraction]93 %John Perdomo DO Work Phone: 0(139)652-[address] [place], [place] [address]-21-2025 11:32-0400 Systolic blood qkgkuyfp094 mm[Hg]John Perdomo DO Work Phone: [facility]07-30-2025 11:37-0400 Body fubcbp537.32 cmDaniel Perdomo DO Work Phone: [facility]07-30-2025 11:37-0400 Body mass index (BMI) [Ratio]26.5 kg/e1Ritelv Perdomo DO Work Phone: [facility]07-30-2025 11:37-0400 Body vazprl42.6 kgDaniel Predomo DO Work Phone: [phone])[phone] [place], [place] 0422007-30-2025 11:37-0400 Diastolic blood esnxxzzu02 mm[Hg]John Perdomo DO Work Phone: 6(732)562-[address] [place], [place] 04[address]007-30-2025 11:37-0400 Heart rate72 /minDaniel Perdomo DO Work Phone: 9(006)295-[address] [place], [place] 04[address]007-30-2025 11:37-0400 Respiratory rate18 /minDaniel Perdomo DO Work Phone: 2(215)472-[address] [place], [place] 04[address]007-30-2025 11:37-0400 SaO2% (BldA) [Mass fraction]95 %John Perdomo DO Work Phone: 8(188)233-[address] [place], [place] [address]007-30-2025 11:37-0400 Systolic blood zoktrbdn644 mm[Hg]John Perdomo DO Work Phone: [facility]03-04-2025 15:36-0500 Body .32 cmK[facility]03-04-2025 15:36-0500Body mass index (BMI) [Ratio]25.6 kg/w9EurdrorurK[facility]tering Health [facility]03-04-2025 15:36-0500Body uyygzfzllrg74.3 [degF][facility]03-04-2025 15:36-0500Body fwhblo60.56 kgKettering Health [facility]03-04-2025 15:36-0500Diastolic blood jbreamnp39 mm[Hg][facility] 09-03-2024 15:36-0500Heart rate73 /[facility] 09-03-2024 15:36-0500Respiratory rate18 /minKettering Health [facility] Township 09-03-2024 15:36-6765CqB4% (BldA) [Mass fraction]95 %[facility]03-04-2025 15:36-0500Systolic blood ahorxfar277 mm[Hg][facility]11-11-2024 15:30-0500Body plqarx526.32 cmK[facility]11-11-2024 15:30-0500Body mass index (BMI) [Ratio]27.1 kg/m2 [facility]11-11-2024 15:30-0500Body vqoxsmlbaoz25.5 [degF][facility]11-11-2024 15:30-0500Body ibopyl78.96 kg [facility]11-11-2024 15:30-0500Diastolic blood itcldlic46 mm[Hg][facility]11-11-2024 15:30-0500Heart rate72 /min [facility]11-11-2024 15:30-0500Respiratory rate16 /min [facility]11-11-2024 15:30-4025DlQ6% (BldA) [Mass fraction]95 %[facility]11-11-2024 15:30-0500Systolic blood iuirjohq950 mm[Hg][facility]07-08-2024 13:03-0400 Body ikungx683.32 cmK[facility]07-08-2024 13:03-0400Body mass index (BMI) [Ratio]26.1 kg/s5EthluofcbKettering Health [facility]07-08-2024 13:03-0400Body zswgmdymcma38.6 [degF][facility]07-08-2024 13:03-0400Body vtqfex34.75 kgKettering Health [facility]07-08-2024 13:03-0400Diastolic blood pdjzuvgd98 mm[Hg][facility] 01-08-2024 13:03-0400Heart rate69 /[facility] 01-08-2024 13:03-0400Respiratory rate16 /[facility] 01-08-2024 13:03-2260PxD8% (BldA) [Mass fraction]96 %[facility]07-08-2024 13:03-0400Systolic blood ulpqzggs217 mm[Hg][facility]03-25-2024 15:52-0400Body iopuuy52.74 kgK[facility]tering [facility]03-25-2024 15:52-0400Diastolic blood ooidaqyt28 mm[Hg][facility]03-25-2024 15:52-0400Heart rate65 /[facility]03-25-2024 15:52-0400Systolic blood ejszkrvf868 mm[Hg][facility]11-28-2023 15:40-0500Body tbgezx114.32 cmAbdul Mary Grace Other Breaker Other 11-28-2023 15:40-0500Body mass index (BMI) [Ratio] 26.92 kg/u1Opvpv Mary Grace Other Breaker Other 11-28-2023 15:40-0500Body vaofodvcbuu08 [degF][place] Mary Grace Other Breaker Other 11-28-2023 15:40-0500Body amwyge22.42 kgAbdul Mary Grace Other Breaker Other 11-28-2023 15:40-0500Diastolic blood amujfzat15 mm[Hg] [place] Mary Grace Other Breaker Other 11-28-2023 15:40-0500Respiratory rate18 /minAbdul Mary Grace Other Breaker Other 11-28-2023 15:40-0231WlR1% (BldA) [Mass fraction]97 % [place] Mary Grace Other Breaker Other 11-28-2023 15:40-0500Systolic blood tbrluhkc374 mm[Hg] [place] Mary Grace Other Breaker Other 07-31-2023 15:40-0400Body .32 cmAbdul Mary Grace Other Breaker Other 07-31-2023 15:40-0400Body mass index (BMI) [Ratio] 26.83 kg/x9Cikwe Mary Grace Other Breaker Other 07-31-2023 15:40-0400Body elcqnzckxmp14.7 [degF][place] Mary Grace Other Breaker Other 07-31-2023 15:40-0400Body hyqiki60.24 kgAbdul Mary Grace Other Breaker Other 07-31-2023 15:40-0400Diastolic blood arrlektj13 mm[Hg] [place] Mary Grace Other Breaker Other 07-31-2023 15:40-0400Respiratory rate18 /minAbdul Mary Grace Other Breaker Other 07-31-2023 15:40-4320JrR4% (BldA) [Mass fraction]98 % [place] Mary Grace Other Breaker Other 07-31-2023 15:40-0400Systolic blood hkqchfod318 mm[Hg] [place] Mary Grace Other [facility] Other 02-28-2023 14:40-0500Body sakvcs265.32 cmAbdul Mary Grace Other I-MD Other 02-28-2023 14:40-0500Body mass index (BMI) [Ratio] 26.29 kg/o4Fvzev Mary Grace Other I-MD Other 02-28-2023 14:40-0500Body glgwrlphbje76.6 [degF][place] Mary Grace Other I-MD Other 02-28-2023 14:40-0500Body .06 kgAbdul Mary Grace Other I-MD Other 02-28-2023 14:40-0500Diastolic blood dlfollgb60 mm[Hg] [place] Mary Grace Other I-MD Other 02-28-2023 14:40-0500Respiratory rate18 /minAbdul Mary Grace Other I-MD Other 02-28-2023 14:40-4915BgA6% (BldA) [Mass fraction]96 % [place] Mary Grace Other Breaker Other 02-28-2023 14:40-0500Systolic blood duuafhra365 mm[Hg] [place] Mary Grace Other Breaker Other 11-28-2022 11:40-0500Body hqovbx263.32 cmAbdul Mary Grace Other Breaker Other 11-28-2022 11:40-0500Body mass index (BMI) [Ratio] 27.25 kg/f6Ccuay Mary Grace Other Breaker Other 11-28-2022 11:40-0500Body pcjppwordua09.2 [degF][place] Mary Grace Other Breaker Other 11-28-2022 11:40-0500Body riixpi82.15 kgAbdul Maryg Race Other [facility] Other 11-28-2022 11:40-0500Diastolic blood flmjotfs77 mm[Hg] [place] Mary Grace Other [facility] Other 11-28-2022 11:40-8833VsL4% (BldA) [Mass fraction]97 % [place] Mary Grace Other [facility] Other 11-28-2022 11:40-0500Systolic blood dkduuget402 mm[Hg] [place] Mary Grace Other [facility] Other 07-28-2022 12:20-0400Body hfassk544.32 cmAbdul Mary Grace Other Breaker Other 07-28-2022 12:20-0400Body mass index (BMI) [Ratio] 26.83 kg/u2Xybqw Mary Grace Other [employer] Other 07-28-2022 12:20-0400Body [degF]Geneva Mary Grace Other [employer] Other 07-28-2022 12:20-0400Body bivukl53.24 kgAbdul Mary Grace Other [employer] Other 07-28-2022 12:20-0400Diastolic blood vblbpdyo42 mm[Hg] Geneva Mary Grace Other [employer] Other 07-28-2022 12:20-0400Respiratory rate18 /minAbdul Mary Grace Other [employer] Other 07-28-2022 12:20-4844RxH2% (BldA) [Mass fraction]96 % Geneva Mary Grace Other [employer] Other 07-28-2022 12:20-0400Systolic blood uyystgsa803 mm[Hg] Geneva Mary Grace Other [employer] Other 03-21-2022 16:00-0400Body .32 cmAbdul Mary Grace Other [employer] Other 03-21-2022 16:00-0400Body mass index (BMI) [Ratio] 27.42 kg/r0Nhppd Mary Grace Other [employer] Other 03-21-2022 16:00-0400Body rodbgsmbukz73.6 [degF]Geneva Mary Grace Other [employer] Other 03-21-2022 16:00-0400Body rirksy19.51 kgAbdul Mary Grace Other [employer] Other 03-21-2022 16:00-0400Diastolic blood snnyggbj03 mm[Hg] Geneva Mary Grace Other [employer] Other 03-21-2022 16:00-0400Respiratory rate18 /minAbdul Mary Grace Other [employer] Other 737894-87-5356 16:00-2989IxX4% (BldA) [Mass fraction]97 % Egneva Mary Grace Other [employer] Other 451403-60-7630 16:00-0400Systolic blood dygitwhf782 mm[Hg] Geneva Mary Grace Other [employer] Other 11-16-2021 15:40-0500Body acovko590.32 cmAbdul Mary Grace Other [employer] Other 11-16-2021 15:40-0500Body mass index (BMI) [Ratio]26.5 kg/u9Vouqj Mary Grace Other [employer] Other 11-16-2021 15:40-0500Body xqnwitixrgk30.2 [degF]Geneva Mary Grace Other [employer] Other 11-16-2021 15:40-0500Body sdyflx87.52 kgAbdul Mary Grace Other [employer] Other 11-16-2021 15:40-0500Diastolic blood mm[Hg] Geneva Mary Grace Other [employer] Other 11-16-2021 15:40-0500Respiratory rate18 /minAbdul Mary Grace Other [employer] Other 11-16-2021 15:40-4815TjE0% (BldA) [Mass fraction]97 % Geneva Mary Grace Other [employer] Other 11-16-2021 15:40-0500Systolic blood hngtofgo081 mm[Hg] Geneva Mary Grace Other [employer] Other Encounters Encounter DateEncounter TypeCare ProviderFacilityStart: 52-00-3172Uyrejpzbbk and management of inpatientNICHOLAS [facility] Start: 46-33-0683Sbclshrlcw and management of inpatientNICHOLAS [facility] Daytontart: 05-01-2025 End: 45-19-7815Vhaqrinuom and management of inpatientGEORGE ANDREACleveland Clinic Children's Hospital for Rehabilitationtart: 05-01-2025 End: 82-39-1329onojwboccdZUDVFJSSt. Mary's Medical Centertart: 04-22-2025 End: 61-82-2458xgejzghradPgtcnz A Herring DO Work Phone: [phone]-Dwdbfvhvy Health Neph SandStart: 04-22-2025 End: 25-38-3922Bvcatbm encounter procedureGeneva Jenkins MD-[facility] Work Phone: Start: 33-11-0504Omx-patient / Non-visitGeneva Jenkins MD -[facility] Work Phone: Start: 04-15-2025 End: 30-65-8418sbfwibrpkuPKYCLFBSt. Mary's Medical Centertart: 04-07-2025 End: 95-05-3147bttcyzkexrZTSGLNCleveland Clinic [facility] Start: 03-23-2025 End: 28-79-0831LkaimxVxzrgtwy D Zahler DO Work Phone: [facility] EyeComment on above:Primary open angle glaucoma (POAG) of both eyes, mild stageStart: 01-29-2025 End: 20-39-6405ddiyikdpneUsrjko A Perdomo DO Work Phone: [facility] Work Phone: Start: 01-29-2025 End: 27-46-8761Ztkeitq encounter procedureGeneva Jenkins MD-[facility] Nephrology [place] Work Phone: Start: 87-61-8023Uih-patient / Non-visitGeneva Jenkins MD -[facility] Work Phone: Start: 11-26-2024 End: 25-25-4508Wjpqib Tone Teran DO Work Phone: noms OPHTStart: 11-26-2024 End: 66-16-0329Bwwcpeansley Teran DO Work Phone: noms OPHTStart: 11-26-2024 End: 69-77-7009hugpcdqahwJJESCVLN D ZAHLERNot AvailableStart: 09-16-2024 End: 45-69-7862npzmztmmlaQFBJHC [facility] Start: 09-03-2024 End: 22-65-2037ukzwcitoseIvwviutmqCommunity [facility] Work Phone: Start: 09-03-2024 End: 75-96-0180Fmzwrvz encounter procedureFiranthony Physician Group-[facility] Work Phone: Start: 96-29-4499Ooa-patient / Non-visitFiranthony Physician Group-[facility] Work Phone: Start: 05-15-2024 End: 12-95-3189Dgwpxs Loreleimikelidia Hayden Renata DO Work Phone: noms NB OPHTStart: 05-15-2024 End: 56-64-4137Hqlowp Loreleimikelidia Hayden Renata DO Work Phone: noms NB OPHTStart: 05-15-2024 End: 04-57-4170wpvhmrwknhIDPTLAZC D MARVELMEEKNot AvailableStart: 05-13-2024 End: 21-99-5243ivzxssqzegYzcosumssSumma Health Work Phone: Start: 05-13-2024 End: 37-67-4667Yxhfzku encounter procedureFormerly [facility] Nephrology [place] Work Phone: Start: 87-27-2579Lhh-patient / Non-visitFormerly [facility], [facility] Work Phone: Start: 01-08-2024 End: 35-23-6030rohsalozocDmcxhjnyyCommunity Memorial Hospital Work Phone: Start: 01-08-2024 End: 24-05-2229Hrydekm encounter procedureFormerly [facility], [facility] Nephrology Work Phone: Start: 81-25-5031Ebe-patient / Non-visitFormerly [facility], [facility] Work Phone: Start: 09-25-2023 End: 41-71-9038kvjedrstssQwrcpmehwSumma Health Work Phone: Start: 09-25-2023 End: 10-28-5212Chkkhez encounter procedureFormerly [facility], [facility] Nephrology Work Phone: Start: 09-09-2023 End: 03-35-8848Bnnohtwwf Result EncounterHilary Margareth Love MD Work Phone: noms External Department UnsolicitedStart: 09-09-2023 End: 17-96-7976Xlfwhgqui Result EncounterHianat Love MD Work Phone: NOWV External Department UnsolicitedStart: 08-08-2023 End: 38-53-2778hwdivrzzkhDwxkk Mary Grace Other [facility] Other Start: 24-71-4671Gaobalugn encounterAbdul QadirFPG NephrologyStart: 07-11-2023 End: 87-23-7199sxclqmrzqwMhkae Mary Grace Other [employer] Other Start: 77-78-5087Anigxiaiy encounterAbdul QadirFPG NephrologyStart: 05-30-2023 End: 86-95-1470ygofghzownVoyrv Mary Grace Other [facility] Other Start: 67-37-9904Ocdjbo outpatient visit 25 minutes Geneva QadirFPG NephrologyStart: 05-23-2023 End: 42-35-4163ubphlhezfqJuulz Mary Grace Other [facility] Other Start: 89-28-1818Fqbtpbjlw encounterAbdul QadirFPG NephrologyStart: 01-30-2023 End: 54-64-5357katgxvbxilJwyoq Mary Grace Other [facility] Other Start: 02-63-3583Iihakgmkh by computer linkAbdul Mary Grace FPG NephrologyStart: 06-96-5916Hinbbi outpatient visit 25 minutesAbdul QadirFPG NephrologyStart: 10-27-2022 End: 30-87-4850koundaxqddRoqsd Mary Grace Other noI[employer] Other Start: 16-34-3849Hwbzqigvk encounterAbdul QadirFPG NephrologyStart: 10-26-2022 End: 73-51-0519zfsxoipznuUL JOHN PERDOMOFacility:G3Lfcnq: 08-30-2022 End: 77-78-1291atvjmxrnmvFiifg Mary Grace Other [employer]MD Other Start: 97-96-8571Oivtlo outpatient visit 25 minutes Geneva QadirFPG NephrologyStart: 08-24-2022 End: 77-74-9693pkmnzwwydsXK JOHN Mcdonough HERRINGFacility:G9Fgxyt: 08-23-2022 End: 67-80-7996zizamazlefHDBIN QADIRFacility:T4Nqzwf: 06-13-2022 End: 85-71-8368qrleesgvjaYE KARTHIK JESSARBELFacility:K7Yogzy: 06-10-2022 End: 29-63-3496izoljhbiryPX KARTHIK GABBIELFacility:V6Fwosb: 06-02-2022 End: 98-88-7549xgkgxwjcdwLN KARTHIK SEOELFacility:G0Afcsd: 06-01-2022 End: 55-36-7905ehcayqgzgjSD JOHN Mcdonough HERRINGFacility:C5Dlwuo: 05-30-2022 End: 50-96-4720ojqwkzmvfzRnfhz Mary Grace Other [employer] Other Start: 56-86-5003Nzfrrk outpatient visit 25 minutes Geneva QadirFPG NephrologyStart: 05-27-2022 End: 87-13-3920tpmrimyjuxGP DANIEL A HERRINGFacility:L8Hbruf: 05-23-2022 Telephone encounterAbdul QadirFPG NephrologyStart: 05-23-2022 End: 08-26-6193hfdhyecqgqPQ DANIEL A PetMD Other Start: 05-14-2022 End: 60-02-3351eifkqgiljwFYHAJEB BOESFacility:G1Tbbjc: 05-12-2022 End: 34-32-7218admngnwevzGxirn Mary Grace Other [employer] Other Start: 02-10-0386Puqbsyxkf encounterAbdul QadirFPG NephrologyStart: 05-11-2022 End: 75-36-2422ijjtquymmdAWHEJFL BOESFacility:E2Dulbi: 03-17-2022 End: 31-42-3628kgpeghovgrQD DANIEL A HERRINGFacility:R2Potnk: 01-27-2022 End: 98-83-6045gufaqgaphyWezuq Mary Grace Other [employer] Other Start: 71-25-1870Uokniu outpatient visit 25 minutes Geneva QadirFPG NephrologyStart: 01-21-2022 End: 68-83-8141kxlmpnbobsZXAyde PERDOMOFacility:X3Ivhcb: 01-17-2022 End: 00-63-0032ruiirsfdihAB DANIEL A HERRINGFacility:J2Schgg: 01-13-2022 End: 38-36-9259oiplgzxednWgybv Mary Grace Other [employer] Other Start: 59-62-9288Pjqdnxadg encounterAbdul QadirFPG NephrologyStart: 38-40-2467Nfjgjbxlw encounterAbdul QadirFPG NephrologyStart: 12-16-2021 End: 97-13-3561nijwaykljtZC DANIEL A PetMD Other Start: 12-09-2021 End: 06-37-6963ibgvjhulfkESZNRJ HERRINGFacility:UTMCStart: 12-08-2021 End: 95-73-9817bmtrrtvarrEkils Mary Grace Other [employer] Other Start: 48-31-8418Givtcagug encounterAbdul QadirFPG NephrologyStart: 12-07-2021 End: 13-94-2354oachplozpuYQ DANIEL A HERRINGFacility:H5Vjvuu: 12-06-2021 End: 10-35-4770isicpjpvssZE JOHN A HERRINGFacility:I0Ykkaq: 12-01-2021 End: 32-54-4300kqptogtwajAS JOHN A HERRINGFacility:C7Ruftw: 11-19-2021 End: 93-34-6488uanmsygqrmHP JOHN A HERRINGFacility:Q7Apxrq: 11-01-2021 End: 13-16-5916kphkzaiejhTrijd Mary Grace Other noI-MD Other Start: 50-22-6472Akdclukvp by computer linkAbdul Mary Grace FPG NephrologyStart: 10-28-2021 End: 00-96-7351scwmqggomnFtmsl Mary Grace Other [facility] [employer] Other Start: 24-23-3396Gzdekjcua encounterAbdul QadirFPG NephrologyStart: 10-13-2021 End: 49-56-8938gcbzjvdfcwWnuqz Mary Grace Other [employer] Other Start: 63-29-7444Wmzwroejh by computer linkAbdul Mary Grace FPG NephrologyStart: 10-06-2021 End: 58-40-0730fsddvtnasnAqmru Mary Grace Other [employer] Other Start: 92-58-2338Rpvsblzuo encounterAbdul QadirFPG NephrologyStart: 09-21-2021 End: 12-44-1802uzrgkofogwQaogs Mary Grace Other [employer]MD Other Start: 00-76-9348Fayfiekqm encounterAbdul QadirFPG NephrologyStart: 09-20-2021 End: 75-76-8583jtrplghivbSkqno Mary Grace Other [employer] Other Start: 96-66-7122Cetaik outpatient visit 25 minutes Geneva QadirFPG NephrologyStart: 08-01-2021 End: 16-85-2581hjxwampdpiMyhcz Mary Grace Other [employer] Other Start: 24-03-5333Baziqgejd by computer linkAbdul Mary Grace FPG NephrologyStart: 07-18-2021 End: 90-52-7510sigdxoexwdWtdgf Mary Grace Other noI-MD Other Start: 65-63-7532Ulycopgyl by computer linkAbdul Mary Grace FPG NephrologyStart: 05-18-2021 End: 78-99-0953dgokthnjteMnusj Mary Grace Other [employer] Other Start: 75-27-2291Micvjq outpatient visit 25 minutes Geneva QadirFPG Nephrology Procedures DateProcedureProcedure DetailPerforming ClinicianStart: 04-59-8422Vdfjhs-up visitFollow-upMELINDA TUCKERStart: 73-31-5329Jpqkcy field xm uni/bi w/interp extended examJothania Teran DO Work Phone: Start: 11-26-2024 End: 17-19-0087Joftk medical xm&eval comprhnsv estab pt 1/>Corneal scar, right eyeJothania Teran DO Work Phone: comment on above:Corneal scar, right eye (Primary Dx); Dry eyes; 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 (CMS/HCC); Primary open angle glaucoma (POAG) of both eyes, mild stageStart: 05-15-2024 End: 35-98-3822Qvdkiboxypkp ophthalmic imaging optic nerveJothania Teran DO Work Phone: Start: 05-15-2024 End: 97-16-1542Vqipf medical xm&eval comprhnsv estab pt 1/>Primary open angle glaucoma (POAG) of both eyes, mild stage (CMS/HCC)Mirta Teran DO Work Phone: comment on above:Primary open angle glaucoma (POAG) of both eyes, mild stage (CMS/HCC) (Primary Dx); 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 (CMS/HCC); Corneal scar, right eye; Dry eyesStart: 45-09-1073It soft tissue head & neck real time imge Philip Loev MD Work Phone: Plan of Treatment DateCare ActivityDetailAuthorStart: 34-27-1080Jbznpojl screeningDiabetes: Retinopathy ScreeningNOWV HealthcareStart: 06-04-2025 End: 50-32-3201Rrnneig encounter nxqkrptue50/03/2025 1:15 PM EST Office Visit [facility] [address] [place] [address] Mirta Teran, [address] [place] [address] [facility] EyeStart: 05-15-2025 Glaucoma screeningDiabetes: Retinopathy ScreeningST. [facility]OR[facility] HealthcareStart: 04-98-1800Bzpakhdqe vaccinationST. [facility]OR[facility]AL [facility] HealthcareStart: 11-26-2024 End: 70-39-4829Jarubne encounter procedureNOMS NB OPHTComment on above:Arrived Start: 63-45-1302Txfrythgy vaccinationInfluenza Vaccine (#1)[facility] Start: 04-02-7219Goprrlbpsv A1c measurementDiabetes: Hemoglobin V0ESHIVFreeman Orthopaedics & Sports MedicineStart: 96-54-9535Lzkwzwjuq for malignant neoplasm of breastMammogram [facility] MedicineStart: 94-56-3422Erwuwcjgreft Vaccine: 65+ Years (1 of 2 - PCV) Pneumococcal Vaccine: 65+ Years (1 of 2 - PCV)[facility] HealthcareStart: 1970 Urine screening for proteinDiabetes: Urine Protein ScreeningFreeman Orthopaedics & Sports Medicine Start: 03-15-3266Wujbiaffemsa Vaccine: 65+ Years (1 of 2 - PCV)Pneumococcal Vaccine: 65+ Years (1 of 2 - PCV)[facility] HealthcareStart: 1951Medicare Annual Wellness (AWV)Medicare Annual Wellness (AWV)[facility] HealthcareStart: 1951 Screening for malignant neoplasm of colonNOWV HealthcareImmunofixation for Urine [facility] 1999 panel - Serum or Plasma [facility] TownshipRen[facility] function 1999 panel - Serum or Plasma [facility] TownshipRen[facility] function 1999 panel - Serum or Plasma [facility]Ren[facility] function 1999 panel - Serum or Plasma [facility]Ren[facility] function 1999 panel - Serum or Plasma [facility] function 1999 panel - Serum or Plasma [facility] Immunizations Immunization DateImmunizationNotesCare ProviderFacilityNEGATED: Highlighted row has not occurred!56-91-8608boybzdcvl, high dose seasonal, preservative-free Patient ObjectionAbdul Mary Grace Other [facility] Other Payers DatePayer CategoryPayerPolicy [id number] Health InsuranceMEDICAL MUTUAL [id number] 2016MedicareMEDICARE [id number] [id number] [id number] 2.16.840.1.397103.3.57[id number] 2.16.840.1.717777.3.57[id number] 2.16.840.1.786240.3.57[id number] 2.16.840.1.841531.3.57[id number] 2.16.840.1.461569.3.57[id number] 2.16.840.1.664650.3.57[id number] 2.16.840.1.411068.3.57[id number] 2.16.840.1.337592.3.57[id number] 2.16.840.1.233595.3.579.2.1[id number] 2.16.840.1.181735.3.579.2.39434-68-0756Hdavrhh7465830 2.16.840.1.891563.3.579.2.77707-30-2769Zmqzyso5276067 2.16.840.1.155371.3.57[id number] 2.16.840.1.363058.3.579.[id number] 2.16.840.1.187764.3.579.[id number] 2.16.840.1.477845.3.579.2.[id number] 2.16.840.1.749160.3.579.[id number] 2.16.840.1.990941.3.579.2.21878-37-0823Dvzmvso0852562 2.16.840.1.074802.3.57[id number] 2.16.840.1.223309.3.57[id number] 2.16.840.1.539204.3.579.2.54501-82-5760Tuqumdt8399996 2.16840.1.449834.3.57[id number] 2.16.840.1.018472.3.57[id number] 2.16.840.1.339976.3.579.2.1259Self-paySelf Pay [id number] [id number] Social History DateTypeDetailFacilityUnknown if ever smokedNost. [facility] Other Start: 87-35-8686Luk Assigned At [facility] Other Start: 11-23-2017 End: 68-04-1693Usotits smoking status NHISNever smoked tobacco (finding) [facility]: 58-19-2430Cit [facility]igned [facility]: 05-13-2024 End: 77-81-0298WcvYstvrn (finding)[facility]: 65-03-5007Txyfcit use and exposureSmokeless tobacco non-userNOMS Healthcare Start: 34-99-2930Qztkmexhb beverage intakeLifetime non-drinker (finding)[facility] HealthcareStart: 82-05-4493Mtchvqx of Social functionNOMS HealthcareStart: 17-56-6024Bzldcjd Commentcaffeine intake: 1-2 cups per day soda/pop 1-2 cans per weekNOMS HealthcareStart: 77-11-7796Wiwiry identityIdentifies as female gender (finding)[facility] HealthcareStart: 09-92-8355NgsGtrndoOAGW Healthcare Clinical Notes 04-27-2020 to 05-04-2025 Note Date & BbnjQimzViwwtybf44-36-5878 NotePt has DC orders. SS consult for CHF. Trudy RN talked to pt, she's had HF for around 6 years and is confident in managing everything herself.[facility]11-02-2025 Note Attestation signed by Jazzmine Kelsey MD [...] Faculty, Division of Nephrology, Department of Medicine, [facility] Sciences. Nephrology Progress Note Patient : Claudia [...] and essential hypertension who was admitted to [facility] as a transfer from [facility] on 05/01/2025 after she initially presented with [...] Dose Status allopurinol (Zyloprim) 100 mg tablet [id number] TAKE (more content not included)... [facility]11-02-2025 Note Attestation signed by Luis Carrero MD [...] Denies chest pain or dyspnea. [facility] with bruising on right neck. Feels a lot better. Awaiting nephro input. Subjective: Claudia Estrella is a 75 y.o. female with a past medical history notable for hypertension, HFpEF, CAD s/p CABG 2020, hyperlipidemia, CKD 4, and diabetes who presents from [facility] cardiology clinic due to worsening dyspnea [...] 05/04/25 0400 156/51 36.6 ???C (97.9 ???F) 71 16 99 % -- 05/04/25 0000 (!) 139/47 36.7 ???C (98.1 ???F) 70 18 96 % -- 05/03/25 2131 144/57 -- -- -- -- -- -- 05/03/25 2019 150/57 36.7 ???C (98.1 ???F) Temporal 73 20 98 % -- 05/03/252014 150/57 -- -- 73 21 97 % -- 05/03/25 1610 (!) 140/48 36.6 ???C (97.8 ???F) Temporal 72 19 95 % -- 05/03/25 1210 144/75 36.3 ???C (97.3 ???F) 77 18 93 % -- 05/03/25 0815 143/70 36.4 ???C (97.5 ???F) Temporal 72 16 97 % -- Physical [...] Value Ventricular Rate 74 Atrial Rate 74 TN Interval 168 QRS DURATION 68 QT Interval 410 QTC CALCULATION(BAZETT) 455 P [place] 64 R-[place] 15 T Wave [place] 103 Impression Normal sinus rhythm Abnormal QRS-T [...] Echo (TTE) w/wo Imaging (more content not included)...[facility]11-01-2025 Note05/03/25 1305 Home Oxygen Therapy Evaluation Home Oxygen Therapy No Pulse Oximetry on room air at Rest 92 Pulse Ox on room air while walking 89 Patient Qualification for home oxygen Does not qualify for home oxygen this visit $ Pulse Oximetry Multiple Patient does not qualify for home oxygen this visit.[facility]11-01-2025 Note Attestation signed by Eh Higuera MD [...] Progress Note - 05/03/2025 11:32 AM; Room: 3183186-01 Admission: 05/01/2025 5:55 PM; Length of stay: 2 days Code Status: Full Code Discharge Destination: TBD Discharge planning: TBD Overview Patient is seen for evaluation and management of heart failure exacerbation. Claudia Estrella is an 75 y.o. female who came from [facility] with prior history of hypertension and diabetes, [...] fever. She was advised to come to [facility] for CHF exacerbation. Subjective The patient [...] heart failure with preserved ejection fraction (HFpEF) ([facility]) Active Problems: Hypertensive disorder Stage 4 chronic kidney disease ([facility]) Type 2 diabetes mellitus ([facility]) Assessment and Plan Acute on chronic [...] mg IV BID, toshia (more content not included)...[facility]11-01-2025 Note Attestation signed by Luis Carrero MD [...] Denies chest pain or dyspnea. Discomfort at [facility] site with bruising on right neck. Feels a lot better. Awaiting nephro input. Subjective: Claudia Estrella is a 75 y.o. female with a past medical history notable for hypertension, HFpEF, CAD s/p CABG 2020, hyperlipidemia, CKD 4, and diabetes who presents from [facility] cardiology clinic due to worsening dyspnea [...] Value Ventricular Rate 74 Atrial Rate 74 TN Interval 168 QRS DURATION 68 QT Interval 410 QTC CALCULATION(BAZETT) 455 P [place] 64 R-[place] 15 T Wave [place] 103 Impression Normal sinus rhythm Abnormal QRS-T angle, consider primary T wave abnormality Abnormal ECG When compared with ECG of 14-JUL-2020 06:44, ST no longer elevated in Lateral Nonspecific T wave abnormality now evident in Lateral Confirmed by Chela CARRERO, LUIS Olson (more content not included)...[facility]11-01-2025 NoteCase was discussed with the JOSUE on 05/01/2025. I agree with the history, physical, assessment, and plan of care. I discussed the findings and therapeutic plan. I agree with the documentation, except for any updates below. Shima Francois MDOhio [facility]10-31-2025 Note Attestation signed by Eh Higuera MD [...] Progress Note - 05/02/2025 2:35 PM; Room: [address] [place] [address] Admission: 05/01/2025 5:55 PM; Length of stay: 1 days Code Status: Full Code Discharge Destination: TBD Discharge planning: TBD Overview Patient is seen for evaluation and management of heart failure exacerbation. Claudia Estrella is an 75 y.o. female who came from [facility] with prior history of hypertension and diabetes, [...] fever. She was advised to come to [facility] for CHF exacerbation. Subjective Patient was seen and examined at bedside. Afebrile, hemodynamically stable, starting well on 2 L per nasal cannula. Patient reports she does not use oxygen at home but believes it will help her with her daily functioning. Patient reports she was recently discharged from [facility] due to a CHF exacerbation. [...] heart failure with preserved ejection fraction (HFpEF) (CMS/[facility]) Active Problems: Hypertensive disorder Stage 4 chronic kidney disease (CMS/HCC) Type 2 diabetes mellitus (CMS/HCC) Assessment and Plan Acute on chronic heart [...] artery disease vis (more content not included)... [facility]10-31-2025 NoteCase was discussed with the JOSUE on 05/01/2025. I agree with the history, physical, assessment, and plan of care. I discussed the findings and therapeutic plan. I agree with the documentation, except for any updates below. Shima Francois MDUnMadison Health10-31-2025 NoteMonitor kidney functions Avoid nephrotoxic drugs Appreciate nephrology recommendationsUnMadison Health 05-02-2025 NoteGlucose management protocol Sliding scale Hypoglycemia managementUnMadison Health10-31-2025 NoteResume home medicationsUnMadison Health10-31-2025 NoteStart Bumex 2mg IV BID Weigh patient daily Fluid restriction Cardiology consult NPO at midnight for possible right heart cathUnMadison Health 05-02-2025 NoteHospital Medicine History and Physical 05/02/2025 12:34 AM THE HOSPITALIST TEAM PREFERS TO USE [employer] CHAT FOR NON-URGENT COMMUNICATION 7AM-7PM. IF I DO NOT RESPOND WITHIN 20 MINUTES OR URGENT MATTERS, PLEASE CALL THROUGH THE SLIDE FASTENER REPAIRER. FROM 7PM-7AM, PLEASE PAGE [phone](COVR). Chief Complaint SOB History of Present Illness Claudia Estrella is an 75 y.o. female who came from [place] Health with prior history of hypertension and diabetes, [...] fever. She was advised to come to [facility] for CHF exacerbation. Review of System [...] heart failure with preserved ejection fraction (HFpEF) ([facility]) Start Bumex 2mg IV BID Weigh patient daily Fluid restriction Cardiology consult NPO at midnight for possible right heart cath Hypertensive disorder Resume home medications Stage 4 chronic kidney disease ([facility]) Monitor kidney functions Avoid nephrotoxic drugs Appreciate nephrology recommendations Type 2 diabetes mellitus ([facility]) Glucose management protocol Sliding scale Hypoglycemia management [...] this hospital stay by a member of [facility]. Past Medical History Medical History[1] [...] Resource Strain (CARDIA) D (more content not included)...[facility]10-30-2025 NoteUT Cardiology [facility] Subjective Chief Complaint Patient presents [...] herpes simplex Stage 4 chronic kidney disease ([facility]/HCC) Type 2 diabetes mellitus (CMS/HCC) Chronic diastolic [...] heart failure with preserved ejection fraction (HFpEF) ([facility]) Family History Problem Relation Name [...] She has ongoing orthopne (more content not included)...[facility]10-14-2025 NoteUT Cardiology - [facility] Subjective Chief Complaint Patient presents with Follow-up Patient is here today for a follow up [facility] admission. Patient states she feels better but not great. Patient states the Hospitalist changed her medications and cut her bumex in half, changed her potassium to 1 a day. Coronary Artery Disease Hypertension Hyperlipidemia Congestive Heart Failure Heart Murmur stage 4 kidney disease Shortness of Breath [place]STER. Patient Active Problem List Diagnosis Coronary arteriosclerosis [...] Rate and Rhythm: No (more content not included)...[facility]10-06-2025 NoteUT Cardiology - [facility] Subjective Claudia Estrella is a 74 [...] warm and dry. Neurologi (more content not included)...[facility] 01-29-2025 Evaluation note* Diagnosis Onset Date [...] April 22, 2025 11:30amHyperuricemiaacuteApril 22, 2025 11:30am Hypokalemia2024 11:30amMicroscopic hematuriaacuteApril 22, 2025 11:30amSecondary hyperparathyroidismacuteApril 22, 2025 11:30am Type 2 diabetes mellitus with diabetic chronic kidney diseaseacuteApril 22, 2025 11:30am [facility] Work Phone: [phone] 434-322005-27-2025 NoteRight Eye Reliability was poor. Progression has been stable. Foveal threshold was normal. Findings include superior nasal step defect, inferior nasal step defect, central scotoma. Left Eye Reliability was borderline. Progression has been stable. Foveal threshold was normal. Findings include superior arcuate defect, inferior arcuate defect, central scotoma.[facility] [id number] History of Present illness Narrative* Mirta Teran, DO - 11/26/2024 2:00 PM EDT Images [...] artificial tears were recommended. documented in this encounterFreeman Orthopaedics & Sports [id number] NoteUT Cardiology - [facility] Subjective Claudia Estrella is a 74 y.o. year old female patient being seen for follow up 6 mo follow up CAD, chronic diastolic heart failure, and hypertension. Had labs last month for nephrology. She only had 1 tablet left of metoprolol (50mg) and took it yesterday. Hasn't had any today. She was told by [facility] that she can't get it until [...] Other Erythromycin Base Hydromorphone (more content not included)...[facility]11-13-2024 Note Right Eye Quality was good. Scan locations included subfoveal. Progression has been stable. Findings include abnormal foveal contour, intraretinal fluid, subretinal fluid. Left Eye Quality was good. Scan locations included subfoveal. Progression has been stable. Findings include abnormal foveal contour. 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 documented in this encounterFreeman Orthopaedics & Sports [id number] Evaluation note* Encounter Date Diagnosis Assessment Notes [...] has adequate Iron stores. Continue oral iron. Breaker Other 07-31-2023 Evaluation note* Encounter Date Diagnosis [...] has adequate Iron stores. Continue oral iron. Breaker Other 02-28-2023 Evaluation note* Encounter Date Diagnosis [...] past. Will defer this to the PCP. Breaker Other 11-28-2022 Evaluation note* Encounter Date Diagnosis [...] an adequate Iron stores. Continue oral iron. Breaker Other 11-21-2022 Evaluation note* Encounter Date Diagnosis Assessment Notes Treatment Notes Treatment Clinical Notes May, CKD (chronic kidney disease) stage 4, GFR 15-29 ml/min (ICD-10 - N18.4) Breaker Other 07-28-2022 Evaluation note* Encounter Date Diagnosis [...] an adequate Iron stores. Continue oral iron. Breaker Other 03-22-2022 Evaluation note* Encounter Date Diagnosis Assessment Notes Treatment Notes Treatment Clinical Notes Aug, Hypokalemia (ICD-10 - E87.6) Breaker Other 03-21-2022 Evaluation note* Encounter Date Diagnosis [...] an adequate Iron stores. Continue oral iron. Breaker Other 01-16-2022 Evaluation note* Encounter Date Diagnosis Assessment Notes Treatment Notes Treatment Clinical Notes Jul, Hyperuricemia (ICD-10 - E79.0) Breaker Other 11-16-2021 Evaluation note* Encounter Date Diagnosis [...] down the progression of CKD. 16 Nov, 2021Ben hy kid w cr kid I-IV (ICD-10 [...] an adequate Iron stores. Continue oral iron. Breaker Other 11-02-2020 NoteRounds at this time with [...] MURPHY Amor notified Taylor Fisher & Maryan Lopez.[facility] SystemComment on above:Result Comment: Electronically Signed By: Zuleyma Shin RN\.br\Date and Time Signed: 05/04/20 13:53 [id number] NoteBasic Information Cardiology Progress Subjective Cardiology consulted over weekend for chest discomfort post operatively. Her EKG was non-acute and troponin trended negative. She does have a animal physiology teacher and reportedly had stress testing in August [...] mg/dL High (05/04/20 12:12:00) POC Device SN: [id number] (05/04/20 12:12:00) POC Username: NESHA COTA (05/04/20 [...] all testing to be performed at [facility]. Faxed notes to her primary animal physiology teacher's office, Dr Fish. Attempted to schedule stress testing with [facility]. Ordered: EC Stress Echo Complete w/ Contrast 2. Hypertension (I10: Essential (primary) hypertension) Continue current medications and follow up with primary animal physiology teacher on discharge. 3. Diabetes (E11.9: Type 2 [...] discuss this management further with her primary animal physiology teacher, but agreeable to starting statin for now. Patient is offered in-patient stress echocardiogram but declines as she wants to be discharged. She is offered out patient stress testing at [facility] tomorrow am and she prefers to have this done at [facility]. Per Central Scheduling at [facility], Dobutamine Stress Echo's are not performed at the facility. She will have close FU with Dr Fish to move forward with testing. D/W Dr Michel. Faxed info from [facility] Hospital stay to her primary animal physiology teacher. Attestation Discussed patient findings and plan of [...] tab(s), Oral, Bedtime saturnino (more content not included)...[facility] SystemComment on above: Result Comment: Electronically Signed By: Trudy SUAZO CNP\.br\Date and Time Signed: 05/04/20 13:15 EST\.br\Electronically Co-Signed By: Jay Jay Ramírez MD\.br\Date and Time Co-Signed: 05/04/20 13:19 [id number] NoteIV removed. nurse sql server consultant emptied. patient and patients daughter verbalized understanding of discharge teaching. patient refused flu vaccination. patient did not verbalize any questions or concerns atthis time.[facility] Note Admission Information Admitting Physician - [...] another day versus following up with her animal physiology teacher and she has opted to do the latter. This is reasonable as she is chest pain-free at rest as well as on exertion. Patient is already on lisinopril, metoprolol, aspirin. Lipitor 20 mg was added for further risk reduction. She will follow-up with her primary animal physiology teacher Dr. Fish. Regarding her recent Ortho surgery she will do weightbearing activity as tolerated and use crutchesfor assistance with ambulation. Dr. Kushal Michel Hospitalist This report was transcribed using voice recognition software. Every effort was made to ensure accuracy, however, inadvertently computerized search engine marketing manager mistakes may be present. Significant Findings [...] pain) Ordered: Hospital Discharge Day 30 Min/Less 65383 2. Hypertension (I10: Essential (primary) hypertension) Ordered: Hospital Discharge Day 30 Min/Less 90053 3. Diabetes (E11.9: Type 2 diabetes mellitus without complications) Ordered: atorvastatin, 20 mg = 1 tab(s), Oral, Bedtime, # 30 tab(s), Refills(s) 1, Pharmacy: [facility]/pharmacy #[id number], 141.5, cm, 04/24/20 13:16:00 EDT, Height/Length Dosing, 69, kg, 05/02/20 5:50:00 EDT, Weight Dosing Hospital Discharge Day 30 Min/Less 36898 4. Acute medial meniscus tear of left knee (S83.242A: Other tear of medial meniscus, current injury, left knee, initial encounter) Ordered: Hospital Discharge Day 30 Min/Less 45570 5. Localized osteoarthritis of left knee (M17.12: Unilateral primary osteoarthritis, left knee) Ordered: Hospital Discharge Day 30 Min/Less 64934 6. No contraindication to deep vein thrombosis (DVT) prophylaxis (Z78.9: Other specified health status) Ordered: Hospital Discharge Day 30 Min/Less 90335 Bruit (R09.89: Other specified symptoms and signs [...] With When Contact Information Follow up with Audio Visual Collections Coordinator Within 1 week Additional Instructions: JOHN PERDOMO [phone] [place] [address]- [email or web address] (1) Additional Instructions: David Talamantes [address] [place] [address]- [email or web address] (1) Additional Instructions: Keep scheduled (more content not included)...[facility] SystemComment on above:Result Comment: Electronically Signed By: RAMIREZ VIGIL, Kushal\.br\Date and Time Signed: 05/04/20 12:[id number] Amir rounded with patient earlier. CRM [...] time. Anticipated discharge 05/04/2020 home. CRM to follow.[facility] SystemComment on above:Result Comment: Electronically Signed By: Ab WU, Terri Ramirez\.br\Date and Time Signed: 05/02/20 10:06 [id number] NoteReason for Consultation Chest pain postoperatively History of Present Illness Mrs. Estrella is a very pleasant 70-year-old diabetic female with hypertension, unknown cholesterol, previously seen by animal physiology teacher Dr. Fish in September 2019 for what [...] testing apparently took place in a private animal physiology teacher office, so I am unsure whether we [...] test in September 2019 at a private animal physiology teacher 's office, reportedly LV dysfunction per thepatient, [...] she undergo a dobutami (more content not included)...[facility] SystemComment on above:Result Comment: Electronically Signed By: Eleuterio VIGIL, John Marin.rashmi\Date and Time Signed: 05/02/20 08:35 [id number] NoteBasic Information Accompanied by: Family member Source of History: Self Present at Bedside: Family member Referral Source: Recovery room History Limitation: None Chief Complaint chest pain History of Present Illness Pt is a 70 F PMH HTN, HLD admitted from PACU. pt had a repair of a left medial meniscus tear with Dr. Talamantes of [facility]. Pt was in PACU recovering, had a [...] 84 mg/dL (05/01/20 16:07:00) POC Device SN: [id number] (05/01/20 16:07:00) POC Username: ALEXIA HALL (05/01/20 [...] acetaminophen 325 mg Tab (more content not included)...[facility] SystemComment on above:Result Comment: Electronically Signed By: JUN VIGIL, Nhung\.br\Date and Time Signed: 05/01/20 18:30 [id number] Note [id number]:127[facility] Evaluation noteNo [employer] Other Evaluation note* Diagnosis Onset Date Resolution Status Anemia of renal disease acuteCKD (chronic kidney disease) stage 4, GFR 15-29 ml/minacuteHyperlipidemia [id number]odbjpaujrqbgkkvZaryqozyxcb hematuriaacuteSecondary hyperparathyroidismacuteType 2 diabetes mellitus with diabetic chronic kidney diseaseKindred Hospital Lima Work Phone: Evaluation note* Diagnosis Onset Date Resolution Status Admit Date Anemia of renal disease acuteNovember 2023 3:17pmCKD (chronic kidney disease) stage 4, GFR 15-29 ml/minacuteNov2023 3:17pmHyperlipidemiaacuteNov2023 3:17pmHypertensive chronic kidney disease with stage 1 through stage 4 chronic kiacuteMay 13, 2024 3:17pmHyperuricemiaacuteNov2023 3:17pm HypokalemiaacuteMay 13, 2024 3:17pmMicroscopic hematuriaacuteMay 13, 2024 3:17pmSecondary hyperparathyroidismacuteMay 13, 2024 3:17pm Type 2 diabetes mellitus with diabetic chronic kidney diseaseacuteMay 13, 2024 3:17pm [facility] Work Phone: Evaluation note* Diagnosis Primary open angle glaucoma (POAG) of both eyes, mild stage (CMS/HCC)- Primary 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 (CMS/HCC) Corneal scar, right eye Unspecified corneal opacity Dry eyes Unspecified tear film insufficiency documented [facility] this encounter [facility] HealthcareEvaluation noteNo assessment information availableMercy Health West Hospital Work Phone: Evaluation note* Diagnosis Corneal scar, right eye- Primary Unspecified corneal opacity Dry eyes Unspecified tear film insufficiency 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 (CMS/HCC) Primary open angle glaucoma (POAG) of both eyes, mild stage documented in this encounter [facility] HealthcareEvaluation note* Diagnosis Onset Date Resolution [...] with diabetic chronic kidney diseaseacuteJuly 2024 11:35am [facility] Work Phone: Evaluation note* Diagnosis Primary open angle glaucoma (POAG) of both eyes, mild stage documented in this encounter [facility] HealthcareHistory general Narrative - Reported* Type Description Date Medical History hypertension Medical HistoryDiabetic -Medical HistoryosteoporosisMedical Historyherpes of the eyeMedical HistoryHTNMedical Historychronic kidney disease, stage 3Medical HistoryosteopeniaMedical HistorygoiterMedical Historyprolapsed cervical intervertebral discMedical HistoryDM 2Medical HistoryGLAUCOMASurgical History appendixSurgical Historyeyelid xlnegzc80/2018Surgical History2 c-sectionSurgical HistoryappendectomySurgical HistoryC-section x 2Surgical Historyovarian cyst removalSurgical HistorycholecystectomySurgical Historygall bladder removal Surgical Historythyroid bx x 2Surgical HistoryRT foot surgerySurgical Historyr/o ovarian cystSurgical Historydouble heart bypass07/13/2020urgical Historycataract surgery11/2019Surgical Historyarthroscopic surgery of left knee05/01/20urgical HistorycycstocopySurgical Historyright eye gtsfepi82/2021Hospitalization History see above Breaker Other History general Narrative - Reported* Type Description Date Medical History hypertension Medical HistoryDiabetic -Medical HistoryosteoporosisMedical Historyherpes of the eyeMedical HistoryHTNMedical Historychronic kidney disease, stage 3Medical HistoryosteopeniaMedical HistorygoiterMedical Historyprolapsed cervical intervertebral discMedical HistoryDM 2Medical HistoryGLAUCOMAMedical History COVID 07/31/2021urgical HistoryappendixSurgical Historyeyelid /2018 Surgical History2 c-sectionSurgical HistoryappendectomySurgical HistoryC-section x 2Surgical Historyovarian cyst removalSurgical HistorycholecystectomySurgical Historygall bladder removalSurgical Historythyroid bx x 2Surgical HistoryRT foot surgerySurgical Historyr/o ovarian cystSurgical Historydouble heart bypass 07/13/2020urgical Historycataract surgery11/2019Surgical Historyarthroscopic surgery of left knee05/01/20urgical HistorycycstocopySurgical Historyright eye xkcamuk02/2021Surgical HistorySTEROID IMPLANT IN RIGHT EYE08/2021Hospitalization Historysee above Breaker Other History general Narrative - Reported* Type Description Date Medical History hypertension Medical HistoryDiabetic -Medical HistoryosteoporosisMedical Historyherpes of the eyeMedical HistoryHTNMedical Historychronic kidney disease, stage 3Medical HistoryosteopeniaMedical HistorygoiterMedical Historyprolapsed cervical intervertebral discMedical HistoryDM 2Medical HistoryGLAUCOMAMedical History COVID 07/31/2021urgical HistoryappendixSurgical Historyeyelid /2018 Surgical History2 c-sectionSurgical HistoryappendectomySurgical HistoryC-section x 2Surgical Historyovarian cyst removalSurgical HistorycholecystectomySurgical Historygall bladder removalSurgical Historythyroid bx x 2Surgical HistoryRT foot surgerySurgical Historyr/o ovarian cystSurgical Historydouble heart bypass 07/13/2020urgical Historycataract surgery11/2019Surgical Historyarthroscopic surgery of left knee05/01/20urgical HistorycycstocopySurgical Historyright eye vurnevg15/2021Surgical HistorySTEROID IMPLANT IN RIGHT EYEurgical History RIGHT HEART CATH12/2021Hospitalization Historysee above Breaker Other Reason for referral (narrative)No reason for referral information availableMercy Health West Hospital Work Phone: Summary Purpose Family History [...] disease) stage 4, GFR 15-29 ml/min Hyperlipidemia [id number] Hyperuricemia Hypokalemia Microscopic hematuria Secondary hyperparathyroidism Type 2 diabetes mellitus with diabetic chronic kidney disease Chief Complaint RENAL 4 MONTH F/U Reason for Visit Anemia of renal dise ase CKD (chronic kidney disease) stage 4, GFR 15-29 ml/min Hyperlipidemia [id number] Hyperuricemia Hypokalemia Microscopic hematuria Secondary hyperparathyroidism Type [...] section and content) DATE CREATED AUTHOR 03/07/2021 [facility] DATE CREATED AUTHOR AUTHOR'S ORGANIZ ATION 08/05/2021 [facility] DATE CREATED AUTHOR AUTHOR'S ORGANIZ ATION 12/16/2021 [facility] DATE CREATED AUTHOR AUTHOR'S ORGANIZ ATION 10/29/2022 [facility] DATE CREATED AUTHOR AUTHOR'S ORGANIZ ATION 11/29/2024 [facility] DATE CREATED AUTHOR AUTHOR'S ORGANIZ ATION 05/09/2025 [facility] REASON FOR VISIT (unrecogniz ed section and content) ReasonCommentsFollow-upReasonCommentsGlaucomaRetinopathyReasonCommentsMed Refill Care Teams (unrecognized sec tion and content) Team Status: Active Member Role Status Saadia Perdomo DO Primary Care Provider Active Team [...] Active Start: May 09, 2024 Geneva Mary Grcae , MDAttending ProviderActiveStart: May 09, 2024 Team Status: Inactive Member Role Status Dates John Perdomo DO Primary Care Provider Active Start: May 13, 2024 End: May 13bdul Mary Grace , MDAttending ProviderActiveStart: May 13, 2024 End: May 13, 2024Team MemberRelationshipSpecialtyStart DateEnd Date Unallocated, Hudson Robertson MD [facility] [place] [address] PCP - GeneralFamily Medicine08/18/23 John Perdomo MD [address] [place] [address] Referring PhysicianOrthopaedic Zypcwee49/6/23Team MemberRelationshipSpecialty Start DateEnd Date UnallocatedHudson MD [address] [place] [address] [facility] - [facility]/18/23 John Perdomo MD [address] [place] [address] Referring PhysicianOrthopaedic Depfajl72/6/23 Team Status: Active Member Role Status Dates John Perdomo DO Primary Care Provider Active Start: August 26, 2024 Genevajennifer Jenkins MDAttending ProviderActiveStart: August 26, 2024 Team Status: Inactive Member Role Status Dates John Perdomo DO Primary Care Provider Active Start: September 03, 2024 End: September 03bdjennifer Jenkins MDAttending ProviderActiveStart: September 03, 2024 End: September 03, 2024Team MemberRelationshipSpecialtyStart DateEnd Date Unallocated, Noms MD Marcelo [facility] [place] [address] PCP - [facility]08/18/23 John Perdomo MD [address] [place], [place] [id number] Referring PhysicianOrthlone peak hospitaledic Psswkvk44/6/23Team MemberRelationshipSpecialty Start DateEnd Date Unallocated, Noms MD Marcelo [address] [place] [address] PCP - [facility] Medicine08/18/23 John Perdomo MD [address] [place] [address] Referring PhysicianOrthlone peak hospitaledic Xaschpz98/6/23 Team Status: Active Member Role Status Dates John Perdomo DO Primary Care Provider Active Start: January 20, 2025 Genevajennifer Jenkins MDAttending ProviderActiveStart: January 20, 2025 Team Status: Inactive Member Role Status Dates John A Perdomo , DO Primary Care Provider Active Start: January 29, 2025 End: January 29bdul Mary Grace , MDAttending ProviderActiveStart: January 29, 2025 End: January 29, 2025Team MemberRelationshipSpecialtyStart DateEnd Date UnallocatedHudson MD [facility] [place] [address] PCP - [facility] Medicine08/18/23 John Perdomo MD [address] [place] [address] Referring PhysicianOrthopaedic Xgneyio84/6/23 Team Status: Active Member Role/Relationship Status Dates [...] April 22, 2025Team MemberRelationshipSpecialtyStart DateEnd Date Unallocated, Hudson Robertson MD [address] [place] [address] PCP - [facility] Medicine08/18/23 John Perdomo MD [address] [place] [address] Referring PhysicianOrthopaedic Dmpmisz32/6/23 Goals (unrecognized section and content) Goals may [...] BE BASED ON THE PRIMARY CLINICAL RECORDS. [facility] [facility]. provides no warranty or guarantee of the accuracy or completeness of information in this document.
[2025-05-12 09:06] LABS: Hematocrit 29.8 % (36.0-48.0); Hemoglobin 9.9 g/dL (12.0-16.0); Mean Corpuscular HGB Conc 33.2 g/dL (29.9-35.2); Mean Corpuscular Hemoglobin 30.2 pg (26.7-34.0); Mean Corpuscular Volume 90.9 fL (81.0-99.0); Platelet Count 202 10^3/uL (150-450); Red Blood Count 3.28 10^6/uL (4.20-5.40); White Blood Count 10.6 10^3/uL (4.0-11.0)
[2025-05-12 10:32] LABS: Basophils Abs Manual 0.10 10^3/uL (0.00-0.10); Basophils Percent Manual 1.0 % (0.2-2.0); Eosinophils Absolute Manual 1.16 10^3/uL (0.00-0.70); Eosinophils Percent Manual 11.0 % (0.9-7.0); Lymphocytes Absolute Manual 0.74 10^3/uL (1.20-3.80); Lymphocytes Percent Manual 7.0 % (20.5-60.0); Monocytes Absolute Manual 0.95 10^3/uL (0.30-0.80); Monocytes Percent Manual 9.0 % (1.7-12.0); Segmented Neut Absolute Manual 7.63 10^3/uL (1.4-6.5); Segmented Neutrophils % Manual 72.0 (43.0-75.0)
[2025-05-12 10:41] LABS: Anion Gap 15.4; Blood Urea Nitrogen 69.0 mg/dL (7.0-18.0); Calcium 9.3 mg/dL (8.5-10.1); Carbon Dioxide 29.2 mmol/L (21.0-32.0); Chloride 100 mmol/L (98-107); Estimated GFR (African America 18 (>=60 mL/min/1.73m^2); Estimated GFR (Non-African Ame 15 (>=60 mL/min/1.73m^2); Glucose 104 mg/dL (74-106); Potassium 3.6 mmol/L (3.5-5.1); Sodium 141 mmol/L (136-145)
== END 2025-05-12 08:55 | disposition home or self-care (01) ==
LOC: LAB 08:55
PROVIDERS: PCP Family Medicine
DX: I50.32 Chronic diastolic (congestive) heart failure (principal)
CPT/HCPCS: 36415; 80048; 85007; 85027

== ENCOUNTER 2025-05-19 09:00 | Outpatient (OUT) | payer MEDICARE, OTHER, SELFPAY ==
--- OUTSIDE RECORDS SUMMARY | 2025-05-19 09:09 | XMS_ITS | CCD ---
Author Organization [facility] Care Team Providers Care Broom Builder Name Role Phone JOHN PERDOMO Referring Unavailable PERDOMO, JOHN Primary Care Unavailable MOUKARBELKARTHIK V Attending Unavailable MOUKARBEL, KARTHIK Resendiz Admitting Unavailable Mary Grace, Geneva Unavailable JOSIE, DR JOHN Mcdonough Primary Care Unavailable BOBBY, KWAN Consulting Unavailable BOBBY, KWAN Admitting Unavailable BOBBY, KWAN Attending Unavailable PERDOMO, DR JOHN Mcdonough Primary Care Unavailable PERODMO, DR JOHN Mcdonough Admitting Unavailable PERDOMO, DR [...] PERDOMO, DR JOHN Mcdonough Primary Care Unavailable PERODMO, DR JOHN Mcdonough Primary Care Unavailable PERDOMO, [...] Provider John Perdomo DO Primary Care Provider Geneva Jenkins MD Attending Provider [phone] KARTHIK FISH Referring Unavailable DOTTIEMIGNON DAWIT Admitting Unavailable EH HIGUERA Attending Unavailable DEACON TO Attending Unavailable KARTHIK FISH Attending Unavailable KARTHIK FISH Attending Unavailable EH HIGUERA Referring Unavailable EH HIGUERA Referring Unavailable EH HIGUERA Referring Unavailable DEACON TO Attending Unavailable Allergies Allergy ClassificationReported Allergen(s)Allergy TypeDate of OnsetReaction(s) FacilityOpioid Agonists (1 source)HYDROmorphoneDrug Tqsuaib00-22-3892SneekndFirelands Regional Medical Center South CampusPenicillins (antibiotic) (1 source)Penicillin G BenzathineDrug Kookzwb79-37-9340esnvwUrclbujueMarietta Osteopathic Clinicpironolactone (1 source)SpironolactoneDrug Vichcxw56-91-6958lgleHbrhjmimmAdena Fayette Medical Center (2 sources)Erythromycin; Translations: [ERYTHROMYCIN]Drug Naalwoy30-99-2549Bji [facility] Repository (2 sources)HYDROmorphoneDrug Oykljui91-44-9848Mib [facility] Repository (2 sources)Penicillins; Translations: [PENICILLINS]Drug allergy (disorder) 86-98-7008Bee [facility] Repository (20 sources)ErythromycinDrug Pzsbjyk86-09-7045mvkrxqjnjvw, Other, UnknownNOVT Healthcare (20 sources)HYDROmorphone; Translations: [HYDROMORPHONE]Drug Sgaucxu95-43-9225 [facility] (20 sources)PenicillinDrug AllergyUnknowAudrain Medical Center SmartyContent Other (20 sources)Penicillin G BenzathineDrug otflkxi85-86-1709ooeliMamvilfbnTrinity Health System West Campus (14 sources)Erythromycin; Translations: [ERYTHROMYCIN BASE]Drug Allergy 71-35-1481TysuvzonbejHtw [facility] Rep[facility] (1 source)PenicillinDrug AllergyPeoples Hospital Repository (9 sources)Spironolactone; Translations: [SPIRONOLACTONE]Drug Ldbuyfp28-40-4856 [facility] (6 sources)Penicillin GDrug Sxhyjpe99-37-3866McnrmRACH [facility] (5 sources)PenicillinsDrug Dcpncqm63-58-2077QocgdPEQL Healthcare (5 sources)SpironolactoneDrug Qnajots37-78-5027HyhxTHHI Healthcare Medications Current Medications MedicationDrug Class(es)DatesSig (Normalized)Sig (Original)allopurinol 100 mg oral tablet (20 sources)Xanthine Oxidase InhibitorStart: 91-58-8480fdco 1 tablet by mouth once dailyAllopurinol 100 mg tablet Active 100 MG PO Daily April 22, 2025 11:37am Hyperuricemia 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 inflammatory arthritis and tophaceous disease Complies with drug therapyStart: 03-24-2025 End: 03-30-8688uadh 1 tablet by mouth once dailyAllopurinol 100 mg tablet Discontinued 0 .ROUTE .COMPLEX 90 March 24, 2025 12:12pm April 22, 2025 11:40am Hyperuricemia 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 inflammatory arthritis and tophaceous disease TAKE 1 TABLET BY MOUTH EVERY DAYStart: 09-03-2024 End: 82-44-7120clia 1 tablet by mouth once dailyAllopurinol 100 mg tablet Discontinued 100 MG PO Daily September 03, 2024 4:38pm March 24, 2025 12:13pm Hyperuricemia 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 inflammatory arthritis and tophaceous diseaseStart: 09-06-2023 End: 13-08-1424pvmu 1 tablet by mouth once dailyAllopurinol 100 mg tablet Discontinued 0 .ROUTE .COMPLEX 90 July 29, 2024 7:27pm September 03, 2024 4:42pm Hyperuricemia 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 inflammatory arthritis and tophaceous disease TAKE 1 TABLET BY MOUTH EVERY DAYStart: 09-05-2023 End: 58-77-0053trre 1 tablet by mouth once dailyAllopurinol 100 [...] Inhibitor, Nonsteroidal Anti-inflammatory Drug Start: 09-25-2023 End: 00-28-4805rjdi 1 tablet by mouth once dailyAspirin 81 [...] tablet (20 sources)HMG-CoA Reductase InhibitorStart: 12-22-2022 End: 82-43-3532vnfx 1 tablet by mouth at bedtimeatorvastatin (Lipitor) [...] oral tablet (20 sources)Loop DiureticStart: 04-22-2025 End: 02-82-7401jovq 1 tablet by mouth once dailyBumetanide 2 mg tablet Active 2 MG PO Daily April 22, 2025 11:54am Complies with drug therapyStart: 09-25-2023 End: 61-62-2534odex 1 tablet by mouth twice dailyBumetanide 2 mg tablet Discontinued 3 MG PO Twice daily January 08, 2024 1:04pm April 22, 2025 11: 40amStart: 09-25-2023 End: 65-15-7102iajd 3 mg by mouth twice dailyBumetanide Active [...] sources)Carbonic Anhydrase Inhibitor, beta-Adrenergic BlockerStart: 05-15-2024 End: 80-60-4391drpc 1 drop(s) into the eye(s) in the morningdorzolamide-timolol (Cosopt) 2-0.5 % ophthalmic solution Indications: Primary open angle glaucoma (P OAG) of both eyes, mild stage ADMINISTER 1 DROP INTO BOTH EYES IN THE MORNING AND 1 DROP BEFORE BEDTIME. 30 mL 1 03/24/2025 03/24/2026 ActiveStart: 09-25-2023 dorzolamide-timolol (Cosopt) 2-0.5 % ophthalmic solution Twice daily 09/25/2023 ActiveStart: 75-79-6965qzpm 1 drop(s) into the eye(s) twice dailyDorzolamide- [...] mg oral capsule (20 sources)Provitamin D2 CompoundStart: 59-07-9521Nzqlvxxavwlsoa (Vitamin D2) 1,250 mcg (50,000 unit) capsule Active 57356 UNIT PO .COMPLEX 7 1 July 29, 2024 7:32pm 50,000 units orally every other week; Complies with drug therapy Start: 09-25-2023 End: 04-34-9405elmn 1 capsule by mouth every weekErgocalciferol (Vitamin D2) 1,250 mcg (50,000 unit) capsule Discontinued 27373 UNIT PO EVERY 2 WEEKS September 25, 2023 12:00am July 29, 2024 7:33pm FreeTextSig: TAKE 1 CAPSULE BY MOUTH ONE TIME PER WEEK; Note: Source Status: Start; Refills: 2; Qty: 12 Capsule; Provider: Mary Grace Bean ( )take 1 capsule by mouth every weekVitamin D (Ergocalciferol) 1.25 MG (07628 UT) TAKE 1 CAPSULE BY MOUTH ONE TIME PER WEEK for 84 Activetake 1 capsule by mouth every other week Ergocalciferol 1.25 MG (89389 UT) 1 capsule Orally Q2 week for 90 days Active ferrous sulfate 325 mg oral tablet (20 sources)Start: 09-19-2024 End: 32-22-1184tvsl 1 tablet by mouth every other dayFerrous Sulfate 325 mg (65 mg iron) tablet Active 0 .ROUTE .COMPLEX 45 March 24, 2025 12:12pm Anemia of renal disease Chronic kidney disease, unspecified Anemia in chronic kidney disease TAKEONE TABLET BY MOUTH EVERY OTHER DAY FOR 90 DAYS Complies with drug therapyStart: 09-03-2024 End: 16-71-8590Rnskmve Sulfate 325 mg (65 mg iron) tablet Discontinued 325 MG PO Every 48 hours September 03, 2024 4:40pm September 19, 2024 1:26pm Anemia of renal disease Chronic kidney disease, unspecified Anemia in chronic kidney disease Start: 09-06-2023 End: 61-37-8135chfw 1 tablet by mouth every other dayFerrous Sulfate 325 mg (65 mg iron) tablet Discontinued 0 .ROUTE .COMPLEX 45 March 1249:48am September 03, 2024 4:42pm Anemia of renal disease Chronic kidney disease, unspecified Anemia inchronic kidney disease TAKE ONE TABLET BY MOUTH EVERY OTHER DAY FOR 90 DAYSStart: 00-26-9351tlfv 1 tablet by mouth every other dayFerrous Sulfate Active 0 .ROUTE .COMPLEX 45 September 06, 2023 4:49pm TAKE 1 TABLET BY MOUTH EVERY OTHER DAYStart: 09-05-2023 End: 55-01-7087sdry 1 tablet by mouth every other dayFerrous [...] acid 1 mg oral tablet (1 source)Start: 61-96-7593ancq 1 tablet by mouth once dailyFolic Acid 1 mg tablet Active 1 MG PO Daily April 22, 2025 12:00am Complies with drug therapyhydrALAZINE hydrochloride 25 mg oral tablet (20 sources)Arteriolar VasodilatorStart: 01-27-2380rivq 2 tablets by mouth twice dailyHydralazine 25 mg tablet Active 50 MG PO Twice daily April 22, 2025 12:02pm Complies with drug therapyStart: 04-22-2025 End: 71-82-7619gagc 1 tablet by mouth twice dailyHydralazine 25 mg tablet Discontinued 25 MG PO Twice daily April 22, 2025 11:38am April 12:02pmStart: 09-25-2023 End: 52-71-8471lsjw 1 tablet by mouth three times dailyHydralazine 25 mg tablet Discontinued 25 MG PO Three times daily January 08, 2024 1:09pm April 22, 2025 11:40amStart: 23-09-8217xqxt 1 tablet by mouth three times dailyhydrALAZINE (Apresoline) 50 MG tablet TAKE 1 TABLET BY MOUTH THREE TIMES A DAY FOR 90 DAYS 08/11/2022 ActiveStart: 63-09-6223xzgm 1 tablet by mouth every twelve hours hydrALAZINE HCl 25 MG 1 tablet with food Orally bid for 90 day(s) Aug, Activetake 1 tablet by mouth every eight hourshydrALAZINE HCl 25 MG 1 tablet with food Orally Three times a day for 90 day(s) Active3 ml insulin glargine 100 unt/ml pen injector (12 sources)Insulin AnalogStart: 42-16-4147odsspb 10 [IU] by subcutaneous injection once as neededInsulin Glargine (Basaglar Kwikpen U-100 Insulin) 100 unit/mL (3 mL) insulin pen Active 10 UNIT SUBCUT Once as needed April 22, 2025 11:38am Complies with drug therapyStart: 09-25-2023 End: 46-28-1394Hlbkxjv Glargine (Basaglar Kwikpen U-100 Insulin) 100 unit/mL [...] BY MOUTH EVERY OTHER DAY for 90 Rvzwxm54 hr isosorbide mononitrate 30 mg extended release oral tablet (5 sources)Nitrate VasodilatorStart: 71-89-3263kbcr 1 tablet by mouth once daily in the morningisosorbide mononitrate ER (Imdur) 30 MG 24 hr tablet TAKE 1 TABLET BY MOUTH EVERY MORNING *DO NOT CRUSH OR CHEW* 08/17/2023 Activeisosorbide dinitrate 30 mg oral tablet (16 sources)Nitrate VasodilatorStart: 41-98-6775apie 1 tablet by mouth once dailyIsosorbide Dinitrate [...] sodium 0.075 mg oral tablet (20 sources)l-ThyroxineStart: 47-41-8863murm 1 tablet by mouth once daily Levothyroxine 75 mcg tablet Active 75 MCG PO Daily January 29, 2025 12:00am Complies with drug therapyStart: 09-25-2023 End: 04-91-7477cyug 1 tablet by mouth once dailyLevothyroxine 50 [...] sodium 0.005 mg oral tablet (5 sources)l-TriiodothyronineStart: 23-93-5404mmxv 2 tablets by mouth once daily liothyronine (Cytomel) 5 MCG tablet TAKE 2 TABLETS BY MOUTH ONCE A DAY 08/11/2023 ActivemetOLazone 2.5 mg oral tablet (20 sources)Thiazide-like DiureticStart: 10-05-8326wghk 1 tablet by mouth two times weekly as neededMetolazone 2.5 mg tablet Active 2.5 MG PO .COMPLEX as needed April 22, 2025 11:38am 2.5 mg orally twice a week PRN; Complies with drug therapyStart: 09-25-2023 End: 13-60-2081Eeqyuopygv 2.5 mg tablet Discontinued 2.5 MG PO [...] meq extended release oral tablet (20 sources)Start: 06-23-3938infh 1 tablet by mouth oncePotassium Chloride 20 mEq tablet extended release Active 20 MEQ PO Once April 22, 2025 11:36am C omplies with drug therapyStart: 09-25-2023 End: 46-74-1511qtcb 40 mEq by mouth three times dailyPotassium Chloride Active 40 MEQ PO Three times daily 540 90 November 16, 2023 1:50pmStart: 04-10-2023 End: 36-50-2820rynh 2 tablets by mouth in the morning, [...] (20 sources)Dihydropyridine Calcium Channel BlockerStart: 10-28-2020 End: 09-03-2616ndhv 1 tablet by mouth once dailyAmlodipine 10 mg tablet Discontinued 1 TAB PO Daily September 25, 2023 12:00am September 03, 2024 4:42pm FreeTextSi tablet Orally Once a day; Note: Source Status: Taking; Provider: Mary Grace Bean ( )doxazosin 4 mg oral tablet (20 sources)alpha-Adrenergic BlockerStart: 01-08-2024 End: 25-54-7186iwlt 6 mg by mouth twice dailyDoxazosin 4 mg tablet Discontinued 6 MG PO Twice daily January 08, 2024 1:05pm April 22, 2025 11:39amStart: 09-25-2023 End: 39-08-3761jogd 6 mg by mouth twice dailyDoxazosin Active 6 MG PO Twice daily January 08, 2024 1:05pmStart: 10-24-2022 End: 74-25-0616glafnlccr (Cardura) 4 MG tablet TAKE 1 AND 1/2 TABLETS BY MOUTH TWICE DAILY FOR 90 DAYS 10/24/2022 Activemetoprolol tartrate 50 mg oral tablet (20 sources)beta-Adrenergic BlockerStart: 01-08-2024 End: 78-25-1945Ayuacdebyf Tartrate 50 mg tablet Discontinued 75 MG PO Twice daily January 08, 2024 1:07pm April 22, 2025 11:40amStart: 09-25-2023 End: 06-69-2496Yqlqrssnqv Tartrate 50 mg tablet Discontinued MG PO September 25, 2023 12:00am January 08, 2024 1:08pm FreeTextSi 1/2 tablet with food Orally Twice a day; Note: Source Status: Taking; Provider: Mary Grace Bean ( )Start: 09-25-2023 End: 84-33-4125ueut 75 mg by mouth twice dailyMetoprolol Tartrate Active 75 MG PO Twice daily January 08, 2024 1:07pmStart: 52-66-3624pqww 1.5 tablets by mouth in the morningmetoprolol tartrate (Lopressor) 50 MG tablet Take 1.5 tablets by mouth in the morning and 1.5 tablets before bedtime. 09/13/2022 ActiveMetoprolol Tartrate 50 MG 1 1/2 tablet with food Orally Twice a day Activemidodrine hydrochloride 5 mg oral tablet (10 sources)alpha-Adrenergic AgonistStart: 01-08-2024 End: 42-27-5968dvan 1 tablet by mouth three times daily as neededMidodrine 5 mg tablet Discontinued 5 MG PO Three times daily as needed January 08, 2024 12:00am April 22, 2025 11:39am Problems Active Problems Problem ClassificationProblemDateDocumented DateEpisodic/ChronicAcute and unspecified renal failure (2 sources)Acute renal failure syndrome; Translations: [Acute kidney failure, unspecified]21-17-8733OtmdhkkgHicyhxi kidney disease (20 sources)Chronic kidney disease stage 4; Translations: [Chronic kidney disease, stage 4 (severe)]Onset: 05-18-2021 Resolved: 20-63-1225SseoiahTnsecdgtul heart failure; nonhypertensive (15 sources)Chronic diastolic (congestive) heart failure; Translations: [Acute combined systolic (congestive) and diastolic (congestive) heart failure]Onset: 75-27-1961JxwbdjdVbggxctg atherosclerosis and other heart disease (5 sources)Atherosclerotic heart disease of [place] coronary artery without angina pectoris; Translations: [Coronary arteriosclerosis]Onset: 04-04-2022 ChronicCoronary atherosclerosis and other heart disease (2 sources)Presence of aortocoronary bypass graft; Translations: [Presence of aortocoronary bypass graft]Onset: 55-89-4164QisuyjgqDzqryfntva and other anemia (20 sources)Anemia of renal disease; Translations: [Anemia in chronic kidney disease]68-39-2909QmadsmqEjznyrsnpr and other anemia (2 sources)Anemia in chronic kidney diseaseChronicDiabetes mellitus with complications (20 sources)Disorder of kidney due to diabetes mellitus; Translations: [Type 2 diabetes mellitus with diabetic chronic kidney disease]Onset: 05-18-2021 Resolved: 39-87-8650SeoeefbHewovdbtx of lipid metabolism (14 sources)Hyperlipidemia; Translations: [Hyperlipidemia, unspecified]Onset: 864872-41-1568LjfundsUqrsljslt hypertension (9 sources)Essential (primary) hypertension; Translations: [Hypertensive disorder]Onset: 30-48-7274XjnvnqjGoazj and electrolyte disorders (20 sources)Hypokalemia; Translations: [Hypokalemia]Onset: 05-18-2021 Resolved: 47-84-4047AdbidxewDqzlmhggbyewi symptoms and ill-defined conditions (20 sources)Other microscopic hematuria; Translations: [Microscopic hematuria] Onset: 05-18-2021 Resolved: 89-26-7774GnvripbpIaqpwxaq (9 sources)Primary open angle glaucoma; Translations: [Primary open-angle glaucoma, bilateral, mild stage]Onset: 064549-53-0344EogswcgByhxf valve disorders (1 source)Rheumatic disorders of both mitral and tricuspid valves; Translations: [RHEUMATIC D/O MITRAL TRICUSPID VALV]Onset: 73-44-7815WgnbarlDtmln valve disorders (2 sources)Heart murmur; Translations: [Heart Murmur]Onset: 26-22-4975Mciqoexx Hypertension with complications and secondary hypertension (20 sources)Chronic kidney disease due to hypertension; Translations: [Hypertensive chronic kidney disease withstage 1 through stage 4 chronic kidney disease, or unspecified chronic kidney disease]Onset: 05-18-2021 Resolved: 81-67-1918BsqfsxmQobqdfh and fatigue (2 sources)Fatigue; Translations: [Fatigue]Onset: 05-14-3084JcarewygXiariaceorw chest pain (2 sources)Chest pain; Translations: [Chest Pain]Onset: 06-44-7937Gletrmlp Nutritional deficiencies (6 sources)Iron deficiency; Translations: [IRON DEFICIENCY]Onset: 05-18-2021 Resolved: 46-53-2763MrnubzycVgcso connective tissue disease (20 sources)Full thickness rotator cuff tear; Translations: [Complete rotator cuff tear or rupture of left shoulder, not specified as traumatic]EpisodicOther diseases of kidney and ureters (20 sources)Secondary hyperparathyroidism; Translations: [Secondary hyperparathyroidism of renal origin]99-02-5582OjrrqngUvncs diseases of kidney and ureters (11 sources)Secondary hyperparathyroidism of renal origin; Translations: [Secondary hyperparathyroidism (of renal origin)]Onset: 05-18-2021 Resolved: 88-01-7829TsgemvuOlpjo lower respiratory disease (2 sources)Shortness of breath; Translations: [Shortness of Breath]Onset: 72-61-0859HbwkepzdVawcd lower respiratory disease (2 sources)Cough; Translations: [Cough]Onset: 85-69-5908UteldthxInrpl non- traumatic joint disorders (20 sources)Arthralgia of the lower leg; Translations: [Right knee pain]Episodic Other nutritional; endocrine; and metabolic disorders (12 sources)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 inflammatory arthritis and tophaceous disease; Translations: [Other abnormal blood chemistry]Onset: 05-18-2021 Resolved: 66-83-8807OaotunkbGtfbf nutritional; endocrine; and metabolic disorders (9 sources)Hyperuricemia; Translations: [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 inflammatory arthritis and tophaceous disease]82-07-2189ObunplskGbklpovm codes; unclassified (2 sources)Edema; Translations: [Edema]Onset: 68-26-5581DljajllbSqumhrw disorders (20 sources)Non-toxic multinodular goiter; Translations: [Nontoxic multinodular goiter]Onset: 82-43-5268WywzgijIfnownwcogke (3 sources)CONTACT W/AND (SUSP) EXPOS COVID-19; Translations: [CONTACT W/AND (SUSP) EXPOS COVID-19]Onset: 12-10-2021 Past or Other Problems Problem ClassificationProblemDateDocumented DateEpisodic/ChronicOther bone disease and musculoskeletal deformities (1 source)Other specified disorders of bone density and structure, right forearm; Translations: [OTH D/O BONEDEN STRUCT RT FORARM]Onset: 06-04-2022 EpisodicOther eye disorders (8 sources)Scar of cornea of right eye; Translations: [Unspecified corneal scar and opacity]Onset: 080426-35-9642BjnavkcdTbiaq eye disorders (8 sources)Dry eyes; Translations: [Dry eye syndrome of bilateral lacrimal glands]Onset: 294477-42-4825SqktfsuoNjwul lower respiratory disease (5 sources)Shortness of breath; Translations: [SHORTNESS OF BREATH]Onset: 06-62-1858XxlwhlihLnpkk lower respiratory disease (5 sources)Other forms of dyspnea; Translations: [OTHER FORMS OF DYSPNEA]Onset: 14-37-9379AorkfwwyPshrb non-traumatic joint disorders (4 sources)Pain in right elbow; Translations: [PAIN IN RIGHT ELBOW]Onset: 53-20-9646IwqoukujRboacigr codes; unclassified (1 source)Localized edema; Translations: [LOCALIZED EDEMA]Onset: 06-18-2022 EpisodicUnclassified (20 sources)Sprain of right knee; Translations: [Right knee sprain]Unclassified (1 source)CONTACT W/AND (SUSP) EXPOS COVID-19; Translations: [CONTACT W/AND (SUSP) EXPOS COVID-19]Onset: 12-07-2021 Results Test NameValueInterpretationReference OjbdhHphfpchv56bj 86-83-732561Ofysvc patient to make her aware there are no DVT in either leg per LE venous ultrasound.NormalUnChillicothe Hospital36Nvm dalia took care of this, pt having an us of both legs and going to watch for increased swelling/sob/weight gainNormalUniversity of [facility] Telephoneon [id number] Claudia Estrella 1950 F Date Provider Department Center 05/07/2025 FRANCIS MUÑOZ [facility] Family History Problem Relation Age of Onset Heart attack Mother Heart failure Mother Heart attack Father Family Status - Relation Status Age at Mother Father DeceasedNormalUniWilson Street Hospital36on Discharge date: 05/04/25 Call date: 05/05/25 Spoke with: patient HF Follow-up date: 05/20/25 Med reconciliation completed: pt declined Questions/Concerns: Patient stated she has been a little tired since discharge, but she denied any CP and stated her SOB is back to baseline. 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 Follow up appts reviewed with pt. Pt asked about cardiac rehab and mentioned she lives in [place]. Histology Technician informed pt she can have the referral faxed to the cardiac rehab closer to her home. Patient is aware of her follow up appt with cardiology. Histology Technician offered to move her follow-up to a sooner date but pt declined. Pt agreed to call anything changes and she would like to be seen sooner.NormalUnChillicothe HospitalTelephoneon [phone] [id number] Claudia Estrella 1950 F Date Provider Department Center 05/05/2025 [id number] RAYMOND [facility] [place] [facility] Family History Problem Relation Age of Onset Heart attack Mother Heart failure Mother Heart attack Father Family Status - Relation Status Age at Mother Father Reason for Visit and Comments: HF post discharge call and inpatient survey sent. [Other]NormalUnChillicothe HospitalBASIC METABOLIC PANELon 61-82-7498Uqtyn gap [Moles/Vol]14 mmol/LNormal7-20UnChillicothe HospitalComment on above:Performed By: #### [id number] #### [facility] (BEAKER) [address], [place] [address]Rueezys [Mass/Vol]8.6 mg/dLNormal8.6-10.3UnChillicothe HospitalComment on above:Performed By: #### [id number] #### [facility] (BEAKER) [address] [place], [place] [address]Bspzeixy [Moles/Vol]107 mmol/JRfrdpb09-731FognczscvmChillicothe HospitalComment on above:Performed By: #### [id number] #### [facility] (BEAKER) [address] [place] [address]IC4 [Moles/Vol]21 mmol/HQzzljb67-06VgdyjdbapmChillicothe HospitalComment on above:Performed By: #### [id number] #### [facility] ([facility]) [address] [place] [address]Lxasfgvppe [Mass/Vol]2.55 mg/dLHigh0.60-1.20UnChillicothe HospitalComment on above:Performed By: #### [id number] #### [facility] ([facility]) [address] [place] [address]SFPZCOXXXU FILTRATION RATE ML/MIN/1.73 SQ M.BQJYSKPJL54.2 mL/min/1.73m*2Low>60.0UnChillicothe HospitalComment on above:Result Comment: [facility]???s estimated glomerular filtration rate (eGFR) will [...] LAB15 #### [facility] ([facility]) [address] [place] [address]Imigcdf [Mass/Vol]122 mg/gQZzee15-656CvnmxzubnaChillicothe HospitalComment on above:Performed By: #### [id number] #### [facility] ([facility]) [address] [place] [address]Frsvyqonk [Moles/Vol]4.0 mmol/LNormal3.5-5.1UnChillicothe HospitalComment on above:Performed By: #### [id number] #### [facility] ([facility]) [address] [place] [address]Qgdulq [Moles/Vol]138 mmol/SOpzywh716-806UdpojapoufChillicothe HospitalComment on above:Performed By: #### [id number] #### [facility] ([facility] [address] [place] [address]Qapp nitrogen [Mass/Vol]64 mg/dLHigh7-25UnChillicothe HospitalComment on above:Performed By: #### [id number] #### [facility] ([facility] [address] [place] [address]BLBI NITROGEN/CREATININE (MASS RATIO) IN SER/PLAS25.1Normal [facility] HospitalComment on above:Performed By: #### [id number] #### [facility] ([facility]) [address] [place] [address]WGLqk 77-79-6331Aaufbptdkwz distribution width (RBC) [Ratio]15.6 %High11.5-15.0UnChillicothe HospitalComment on above:Performed By: #### [id number] ####[facility] ([facility])[address] [place] [address] ERYTHROCYTE MEAN CORPUSCULAR HEMOGLOBIN CONCENTRATION (G/DL) BY GKDUXVJVD83.1 g/zPNimbig77.0-35.0UnChillicothe HospitalComment on above:Performed By: #### [id number] ####[facility] ([facility])[address] [place], [place] [address]Pmatefjpbl (Bld) [Volume fraction]26.0 %Low36.0-45.0UnChillicothe HospitalComment on above:Performed By: #### [id number] ####[facility] ([facility] [facility])[address] [place], [place] [address]Chwodmbdhx (Bld) [Mass/Vol]8.6 g/dLLow 12.0-15.0UnChillicothe HospitalComment on above:Performed By: #### [id number] ####[facility] ([facility])[address] [place], [place] [address]MSO (RBC) [Entitic mass]29.8 slTmkfng93.0-33.0UnChillicothe HospitalComment on above:Performed By: #### [id number] ####[facility] ([facility])[address] [place] [address]UXT (RBC) [Entitic vol]90.0 jRWxxymd89.0-98.0UnChillicothe HospitalComment on above:Performed By: #### [id number] ####[facility] ([facility])[address] [place] [address]RAPBBLVGK (10*3/UL) IN BLOOD AUTOMATED OEBPE551 10*3/lYDluwmt826-494AhdqqeklljChillicothe Hospital Comment on above:Performed By: #### [id number] ####[facility] ([facility])[address] [place] [address]CDE (Bld) [#/Vol]2.89 10*6/uLLow3.80-5.00UnChillicothe HospitalComment on above:Performed By: #### [id number] ####[facility] ([facility])[address] [address]MEF (Bld) [#/Vol]8.26 10*3/uLNormal4.00-10.60UnChillicothe HospitalComment on above: Performed By: #### [id number] ####[facility] ([facility])[address] [place] [address]ELyr 47-53-4036DI Attestation signed by Eh Higuera MD at [...] up with Cardiology (already scheduled) and Nephrology ([facility]). Internal Medicine Discharge Summary Final Discharge Diagnosis: Acute on chronic HFrEF Admission Diagnosis: Acute on chronic heart failure with preserved ejection fraction (HFpEF) ([facility]) [I50.33] Hospital course: 75-year-old female with [...] 05/20/2025 10:00 AM Deacon To CNP [facility] Your medication list PAUSE taking these [...] MOUTH EVERYDAY AT BEDTIME ergocalciferol 1.25 MG (71503 Units) capsule Commonly known as: Vitamin D-2 [...] midodrine 5 mg tablet (more content not included)...NormalUnChillicothe HospitalNURSNOTE on 36-09-9306TMJSPMOIRd discharged with all belongings, discharge paperwork, and all questions answered to pt's satisfaction.NormalParkview Health Bryan HospitalPOCT GLUCOSE METER UNSOLICITED RESULTSon 31-29-6404Kvtrmbl [Mass/Vol]184 mg/dLHigh 70-105UnChillicothe HospitalComment on above:Order Comment: Waived Testing in the ED is performed under the ED CLIA certificate #[id number].Result Comment: jarizmePerformed By: #### [id number] ####[facility] ([facility])[address] [place] [address]ac [id number] patient is Moderately Stable - Low risk of patient condition declining or worsening The patient's goals for the shift include comfort, rest The clinical goals for the shift include VSS, safetyNormalUniversFisher-Titus Medical CenterBASIC METABOLIC PANELon 20-13-7606Uwamh gap [Moles/Vol]14 mmol/L Normal7-20UnChillicothe HospitalComment on above:Performed By: #### [id number] ####[facility] ([facility])[address] [place], [place] [address]Wqwytqz [Mass/Vol]8.6 mg/dLNormal8.6-10.3UnChillicothe HospitalComment on above:Performed By: #### [id number] ####[facility] ([facility])[address] [place], [place] [address]Unweyquo [Moles/Vol]108 mmol/DMqhk55-556EmuyoujdueParkview Health Bryan HospitalComment on above:Performed By: #### [id number] ####[facility] ([facility])[address] [place], [place] [address]RD6 [Moles/Vol]20 mmol/MQmh15-73 [facility] Bryan HospitalComment on above:Performed By: #### [id number] ####[facility] ([facility])[address] [place], [place] [address]Kjjxozdlkr [Mass/Vol]2.76 mg/dLHigh0.60-1.20UnChillicothe HospitalComment on above:Performed By: #### [id number] ####[facility] ([facility])[address] [place] [address]EDGADPOBNN FILTRATION RATE ML/MIN/1.73 SQ M.MIUEDWKCQ63.5 mL/min/1.73m*2Low>60.0UnChillicothe HospitalComment on above:Result Comment: The [facility]???s estimated glomerular filtration rate (eGFR) will [...] #### LAB15 ####[facility] ([facility])[address] [place] [address]Crirpzf [Mass/Vol]113 mg/gLZlbe30-232LjjcxvmhryChillicothe HospitalComment on above:Performed By: #### [id number] ####[facility] ([facility])[address] [place] [address]Bzwqjbooz [Moles/Vol]4.0 mmol/L Normal3.5-5.1UnChillicothe HospitalComment on above:Performed By: #### [id number] ####[facility] ([facility])[address] [place] [address] Sodium [Moles/Vol]138 mmol/GEwfbjs286-975UpnlrvbqgkChillicothe Hospital Comment on above:Performed By: #### [id number] ####[facility] ([facility])[address] [place], [place] [address]Yvel nitrogen [Mass/Vol]61 mg/dLHigh7-25UnChillicothe HospitalComment on above:Performed By: #### [id number] ####[facility] ([facility])[address] [facility] [place] [address]UPZB NITROGEN/CREATININE (MASS RATIO) IN SER/PLAS22.1NormalUnChillicothe HospitalComment on above:Performed By: #### [id number] ####[facility] ([facility])[address] [place] [address]OGEwa 37-98-7536Xqgclgohgag distribution width (RBC) [Ratio] 15.5 %High11.5-15.0UnChillicothe HospitalComment on above:Performed By: #### [id number] #### [facility] ([facility]) [address] [place], [place] [address]DTSXAGHHYBT MEAN CORPUSCULAR HEMOGLOBIN CONCENTRATION (G/DL) BY AKDFVKXQO65.2 g/lHQcjbtu02.0-35.0UnChillicothe HospitalComment on above:Performed By: #### [id number] #### [facility] ([facility]) [address] [place] [place], [place] [address]Kkcmkwynpi (Bld) [Volume fraction]26.5 %Low36.0-45.0UnChillicothe HospitalComment on above:Performed By: #### [id number] #### [facility] ([facility]) [address] [place], [place] [address]Pylevtiuge (Bld) [Mass/Vol]8.8 g/dLLow12.0-15.0UnChillicothe HospitalComment on above:Performed By: #### [id number] #### [facility] ([facility]) [address] [place], [place] [address]NRA (RBC) [Entitic mass]29.7 gtQwabfe16.0-33.0UnChillicothe HospitalComment on above:Performed By: #### [id number] #### [facility] ([facility]) [address] [place], [place] [address]AKO (RBC) [Entitic vol]89.5 mDWqllrq75.0-98.0UnChillicothe HospitalComment on above:Performed By: #### [id number] #### [facility] ([facility]) [address] [place], [place] [address]WVEEYCQJA (10*3/UL) IN BLOOD AUTOMATED [id number] 10*3/uLNormal 150-400UnChillicothe HospitalComment on above:Performed By: #### [id number] #### [facility] ([facility]) [address] [place] [address]ZBP (Bld) [#/Vol]2.96 10*6/uLLow3.80-5.00UnChillicothe HospitalComment on above:Performed By: #### [id number] #### [facility] ([facility]) [address] [facility] [place], [place] [address]IMH (Bld) [#/Vol]9.33 10*3/uLNormal4.00-10.60UnChillicothe HospitalComment on above:Performed By: #### [id number] #### [facility] ([facility]) [address] [facility] [address] [place], [place] [address]WAOHERVpr 66-07-3342DRFGPFK Attestation signed by Jazzmine Kelsey MD at [...] Faculty, Division of Nephrology, Department of Medicine, [facility]. Nephrology Consult Note Patient [...] and essential hypertension who was admitted to [facility] as a transfer from [facility] on 05/01/2025 after she initially presented with [...] HGB 8.8 (L) 05/03/20 (more content not included)...NormalUnChillicothe HospitalCREATININE, URINE, RANDOMon 02-51-2458Yaonfuescz (U) [Mass/Vol] 40.0 mg/iJCcnzyu49-018OgymbvchzyChillicothe HospitalComment on above: Performed By: #### [id number] ####[facility] ([facility])[address] [place], [place] [address]UQZDWOUWLOgb 97-84-6506Ggomcauqd [Mass/Vol]4.2 mg/dLNormal 2.5-5.0UnChillicothe HospitalComment on above:Performed By: #### [id number] #### [facility] ([facility]) [address] [place], [place] [address]ETDW GLUCOSE METER UNSOLICITED RESULTSon 85-47-5015Aqnqjuo [Mass/Vol]168 mg/uWQpau98-234PxhlltskuoChillicothe HospitalComment on above:Order Comment: Waived Testing in the ED is performed under the ED CLIA certificate #[id number].Result Comment: [id number] By: #### [id number] ####[facility] ([facility])[address] [place], [place] [address]Mkgzkuw [Mass/Vol]187 mg/jRIxlt42-162VxvdzdijmyChillicothe HospitalComment on above:Order Comment: Waived Testing in the ED is performed under the ED CLIA certificate #[id number].Result Comment: xllwowu7Zfdaycsho By: #### [id number] ####[facility] ([facility])[address] [place], [place] [address]Hderfuz [Mass/Vol]154 mg/aJTcpi32-908VhkytnekkvChillicothe HospitalComment on above:Order Comment: Waived Testing in the ED is performed under the ED CLIA certificate #[id number].Result Comment: [id number] By: #### [id number] ####[facility] ([facility])[address] [place], [place] [address]Oeopfrj [Mass/Vol]126 mg/uVLprh64-117ObodrbcssoChillicothe HospitalComment on above:Order Comment: Waived Testing in the ED is performed under the ED CLIA certificate #[id number].Result Comment: [id number] By: #### [id number] #### [facility] ([facility]) [address] [place], [place] [address]MEZRNTH, URINE, RANDOMon 01-05-78[address]Iharvmq (U) [Mass/Vol]105.9 mg/dLNormalUniWilson [address] HospitalComment on above:Result Comment: There are no established reference values for random urine specimens.Performed By: #### [id number] #### [facility] ([facility]) [address] [place], [place] [address]OHS, INTACTon 18-74-4643QOSOWCDWEK INTACT (PG/ML) IN SER/CATC131 pg/dDHtox41-51BwsrlcotzkChillicothe HospitalComment on above:Performed By: #### [id number] ####[facility] ([facility])[address] [place] [address] URINALYSISon 41-80-4514OLCRUVENR, TOTAL PRESENCE IN URINENegativeNormalNegative [facility] HospitalComment on above:Performed By: #### [id number] ####[facility] ([facility])[address] [place], [place] [address]Iwfscxn (U)Clear NormalClearUnChillicothe HospitalComment on above:Performed By: #### [id number] ####[facility] ([facility])[address] [place] [address] Color (U)Light-YellowNormalColorless, Yellow, Light-YellowUnChillicothe HospitalComment on above:Performed By: #### [id number] ####[facility] ([facility])[address] [place], [place] [address]EJUKZJY (MG/DL) IN URINENormalNormal NormalUnChillicothe HospitalComment on above:Performed By: #### [id number] ####[facility] ([facility])[address] [place] [address] HEMOGLOBIN PRESENCE IN URINENegativeNormalNegativeUnChillicothe HospitalComment on above:Performed By: #### [id number] ####[facility] ([facility])[address] [place], [place] [address]Oreipjo Ql (U)NegativeNormalNegative [facility] HospitalComment on above:Performed By: #### [id number] ####[facility] ([facility])[address] [place], [place] [address]SOZERAKLM ESTERASE PRESENCE IN URINE BY TEST STRIPNegativeNormalNegativeUnChillicothe HospitalComment on above:Performed By: #### [id number] ####[facility] ([facility])[address] [place], [place] [address]IQLLFKB PRESENCE IN URINE NegativeNormalNegativeUnChillicothe HospitalComment on above: Performed By: #### [id number] ####[facility] ([facility])[address] [place], [place] [address]hT (U)5.0 [pH]Normal5.0-8.0UnChillicothe HospitalComment on above:Performed By: #### [id number] ####[facility] ([facility])[address] [place], [place] [address]Unhsnbn (U) [Mass/Vol]30 mg/dLAbnormal NegativeUnChillicothe HospitalComment on above:Performed By: #### [id number] ####[facility] ([facility])[address] [place] [address]Oebljipw gravity (U) [Rel density]1.739Zyy7.010-1.030UnChillicothe Hospital Comment on above:Performed By: #### [id number] ####[facility] ([facility])[address] [place] [address]JRPQOAXNDMNK (MG/DL) IN URINENormalNormalNormal [facility] HospitalComment on above:Performed By: #### [id number] ####[facility] ([facility])[address] [place], [place] [address]BXEVUMWOYO MICROSCOPICon 59-76-0257GLRTL (#/LPF) IN URINE SEDIMENTOccasionalNormalNone Seen, Occasional, FewUnChillicothe HospitalComment on above: Performed By: #### [id number] ####[facility] ([facility])[address] [place], [place] [address]SLH (#/HPF) IN URINE SEDIMENT3-5AbnormalNone Seen, 0-2 [facility] HospitalComment on above:Performed By: #### [id number] ####[facility] ([facility])[address] [place], [place] [address]IHQTHZKA EPITHELIAL CELLS (#/LPF) IN URINE SEDIMENTFewNormalNone Seen, Occasional, Few [facility] HospitalComment on above:Performed By: #### [id number] ####[facility] ([facility])[address] [place], [place] [address]HJQ (LEUKOCYTE) (#/HPF) IN URINE SEDIMENT0-2NormalNone Seen, 0-2UnChillicothe HospitalComment on above:Performed By: #### [id number] ####[facility] ([facility])[address] [place] [id number] 24-33-829950Bob patient is Moderately Stable - Low risk of patient condition declining or worsening The patient's goals for the shift include comfort, rest The clinical goals for the shift include VSSNormalUniversity of [facility] Fwbylz32Hly patient is Moderately Stable - Low risk [...] and behaviors that affect risk of falls [place] fall precautions as indicated by assessment Educate [...] difficulty Respiratory therapy support as indicatedNormalUniversity of [facility]30The patient is Moderately Stable - Low risk of patient condition declining or worsening The patient's goals for the shift include comfort and rest The clinical goals for the shift include stable VSNormalUniversity of Hca Houston Healthcare WestANESon 59-11-5969VCUY Attestation signed by Rickey Jackson MD at 05/02/2025 11:12 AM Rickey Jackson MD, MPH, [facility], [facility], [facility] Interventional Cardiology Pager Email: [email or web address] Patient: Claudia Estrella Procedure Information Date/Time: 05/02/25929 Procedure: Right heart cath Location: [facility] SAMPLE STEAMER [address] / [facility] (Cath) Providers: Rickey [...] products. Plan discussed with attending. Additional Equipment RequestsNormalUniversFisher-Titus Medical CenterB-TYPE NATRIURETIC PEPTIDEon 38-20-6238Hdwvghcjvrl peptide B (Bld) [Mass/Vol]1236 pg/mL High0-100UnChillicothe HospitalComment on above:Performed By: #### [id number] ####[facility] ([facility])[address] [facility] [place] [place] [address]PPPHB METABOLIC PANELon 38-15-6274Qgtfb gap [Moles/Vol]13 mmol/LNormal7-20UnChillicothe HospitalComment on above:Performed By: #### [id number] #### [facility] ([facility]) [address] [place], [place] [address]Cgpmkaw [Mass/Vol]8.6 mg/dLNormal8.6-10.3UnChillicothe HospitalComment on above:Performed By: #### [id number] #### [facility] ([facility]) [address] [place], [place] [address]Oozqvnez [Moles/Vol]108 mmol/ZQihx94-041BgtqwrklcvChillicothe HospitalComment on above:Performed By: #### [id number] #### [facility] ([facility]) [address] [place], [place] [address]VV3 [Moles/Vol]21 mmol/BXazslf97-41VbdjjduyjoChillicothe HospitalComment on above:Performed By: #### [id number] #### [facility] ([facility]) [address] [place] [address]Xqyjrlxkor [Mass/Vol]2.77 mg/dLHigh0.60-1.20UnChillicothe HospitalComment on above:Performed By: #### [id number] #### [facility] ([facility]) [address] [place], [place] [address]VZTAYMJXUG FILTRATION RATE ML/MIN/1.73 SQ M.XIFAQRRUJ94.4 mL/min/1.73m*2Low>60.0UnChillicothe HospitalComment on above:Result Comment: The [facility]???s estimated glomerular filtration rate (eGFR) will [...] LAB15 #### [facility] ([facility]) [address] [place], [place] [address]Agaahjl [Mass/Vol]147 mg/hVMgcw74-427MwqmoiequiChillicothe HospitalComment on above:Performed By: #### [id number] #### [facility] ([facility]) [address] [place], [place] [address]Wvvumtnxv [Moles/Vol]3.9 mmol/LNormal3.5-5.1UnChillicothe HospitalComment on above:Performed By: #### [id number] #### [facility] ([facility]) [address] [place], [place] [address]Ybfqbp [Moles/Vol]138 mmol/TJhiqux862-221LhuhqgzijqChillicothe HospitalComment on above:Performed By: #### [id number] #### [facility] ([facility]) [address] [place], [place] [address]Wxkj nitrogen [Mass/Vol]60 mg/dLHigh7-25UnChillicothe HospitalComment on above:Performed By: #### [id number] #### [facility] ([facility]) [address] [place], [place] [address]TJJL NITROGEN/CREATININE (MASS RATIO) IN SER/PLAS21.7Normal [facility] HospitalComment on above:Performed By: #### [id number] #### [facility] ([facility]) [address] [place], [place] [address]Inzip gap [Moles/Vol]14 mmol/LNormal7-20UnChillicothe HospitalComment on above:Performed By: #### [id number] #### [facility] ([facility]) [address] [place], [place] [address]Oauudru [Mass/Vol]8.5 mg/dLLow8.6-10.3UnChillicothe HospitalComment on above:Performed By: #### [id number] #### [facility] ([facility]) [address] [place], [place] [address]Xiopcgom [Moles/Vol]106 mmol/HOonliq09-981DzolhwxlwnChillicothe HospitalComment on above:Performed By: #### [id number] #### [facility] ([facility]) [address] [place], [place] [address]UP8 [Moles/Vol]21 mmol/TYfefgd72-85NccxznvazhChillicothe HospitalComment on above:Performed By: #### [id number] #### [facility] ([facility]) [address] [place], [place] [address]Hxrdltgoqk [Mass/Vol]2.85 mg/dLHigh0.60-1.20UnChillicothe HospitalComment on above:Performed By: #### [id number] #### [facility] ([facility]) [address] [place], [place] [address]DPSGECQTKN FILTRATION RATE ML/MIN/1.73 SQ M.WRYJNTXPG63.8 mL/min/1.73m*2Low>60.0UnChillicothe HospitalComment on above:Result Comment: The [facility]???s estimated glomerular filtration rate (eGFR) will [...] affect anyone group of individuals.Performed By: #### [id number] #### [facility] ([facility]) [address] [place] [address]Mdnafrr [Mass/Vol]146 mg/oFEnmi13-409GwipykukosChillicothe HospitalComment on above:Performed By: #### [id number] #### [facility] ([facility]) [address] [place] [address]Kcuhinozq [Moles/Vol]3.9 mmol/LNormal3.5-5.1UnChillicothe HospitalComment on above:Performed By: #### [id number] #### [facility] ([facility]) [address] [place] [address]Ydohgh [Moles/Vol]137 mmol/YGlojis646-464LhhbhjlwomChillicothe HospitalComment on above:Performed By: #### [id number] #### [facility] ([facility]) [address] [place] [address]Lsnp nitrogen [Mass/Vol]58 mg/dLHigh7-25UnChillicothe HospitalComment on above:Performed By: #### [id number] #### [facility] ([facility]) [address] [place] [address]USZA NITROGEN/CREATININE (MASS RATIO) IN SER/PLAS20.4Normal [facility] HospitalComment on above:Performed By: #### [id number] #### [facility] ([facility]) [address] [place] [address]AMZph 42-65-6155Omoywdqzjht distribution width (RBC) [Ratio]15.3 %High11.5-15.0UnChillicothe HospitalComment on above:Performed By: #### [id number] #### [facility] ([facility]) [address] [place] [address]GBRTBWFNAGF MEAN CORPUSCULAR HEMOGLOBIN CONCENTRATION (G/DL) BY BETKBXKHL27.5 g/oOWendeu63.0-35.0UnChillicothe HospitalComment on above:Performed By: #### [id number] #### [facility] ([facility]) [address] [place] [address]Npgfkpgpar (Bld) [Volume fraction]26.9 %Low36.0-45.0UnChillicothe HospitalComment on above:Performed By: #### [id number] #### [facility] ([facility]) [address] [place] [address]Yugnshmlaf (Bld) [Mass/Vol]9.0 g/dLLow12.0-15.0UnChillicothe HospitalComment on above:Performed By: #### [id number] #### [facility] ([facility]) [address] [place] [address]SYA (RBC) [Entitic mass]29.6 xxQkzcea98.0-33.0UnChillicothe HospitalComment on above:Performed By: #### [id number] #### [facility] ([facility]) [address] [place] [address]QDO (RBC) [Entitic vol]88.5 tLOwjtfj46.0-98.0UnChillicothe HospitalComment on above:Performed By: #### [id number] #### [facility] ([facility]) [address] [place] [address]NDYUMGXIR (10*3/UL) IN BLOOD AUTOMATED [id number] 10*3/uLNormal 150-400UnChillicothe HospitalComment on above:Performed By: #### [id number] #### [facility] ([facility]) [address] [place] [address]ICI (Bld) [#/Vol]3.04 10*6/uLLow3.80-5.00UnChillicothe HospitalComment on above:Performed By: #### [id number] #### [facility] ([facility]) [address] [place] [address]YXM (Bld) [#/Vol]10.61 10*3/uLHigh4.00-10.60UnChillicothe HospitalComment on above:Performed By: #### [id number] #### [facility] ([facility]) [address] [place] [address]Khqgbtavyme distribution width (RBC) [Ratio]15.3 %High11.5-15.0 [facility] HospitalComment on above:Performed By: #### [id number] #### [facility] ([facility]) [address] [address]DUQCBWRLYHK MEAN CORPUSCULAR HEMOGLOBIN CONCENTRATION (G/DL) BY TKWJZEMZO98.6 g/hEVnkeuo17.0-35.0UnChillicothe HospitalComment on above:Performed By: #### [id number] #### [facility] ([facility]) [address] [address]Sqkhpybykf (Bld) [Volume fraction]26.1 %Low36.0-45.0UnChillicothe HospitalComment on above:Performed By: #### [id number] #### [facility] ([facility]) [address] [address]Tafeqgfqux (Bld) [Mass/Vol]8.5 g/dLLow12.0-15.0UnChillicothe HospitalComment on above:Performed By: #### [id number] #### [facility] ([facility]) [address] [address]FYO (RBC) [Entitic mass]29.0 vpCwiaba47.0-33.0UnChillicothe HospitalComment on above:Performed By: #### [id number] #### [facility] ([facility]) [address] [place], [place] [address]BGN (RBC) [Entitic vol]89.1 dOAcirlg33.0-98.0UnChillicothe HospitalComment on above:Performed By: #### [id number] #### [facility] ([facility]) [address] [place], [place] [address]RZTFIHDUN (10*3/UL) IN BLOOD AUTOMATED [id number] 10*3/uLNormal 150-400UnChillicothe HospitalComment on above:Performed By: #### [id number] #### [facility] ([facility]) [address] [place], [place] [address]LJT (Bld) [#/Vol]2.93 10*6/uLLow3.80-5.00UnChillicothe HospitalComment on above:Performed By: #### [id number] #### [facility] ([facility]) [address] [place], [place] [address]DYS (Bld) [#/Vol]10.31 10*3/uLNormal4.00-10.60UnChillicothe HospitalComment on above:Performed By: #### [id number] #### [facility] ([facility]) [address] [place], [place] [address]EBKEAPRsp 70-51-4188TXIRRTRFlifg Nutrition Assessment: Name: Claudia Estrella Date: 1950 Date of Visit: 05/02/25 Admission Dx: Acute on chronic heart failure with preserved ejection fraction (HFpEF) (CMS/[facility]) [I50.33] Reason for assessment: high risk [...] Independently feeds 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 [...] to diet recommendations No (more content not included)...[facility] CONSULT Attestation with edits by Karthik Fish [...] medical history of CHF (congestive heart failure) (CMS/[facility]), Chronic kidney disease, Coronary artery disease, [...] times daily ergocalciferol (Vitamin D-2) 1.25 MG (24342 UT) capsule 1 capsule, Weekly ferrous sulfate [...] Prescriptions Prior to Admission[1] (more content not included)...NormalUnChillicothe HospitalFERRITIN on 57-84-7200ETBGCQZW (NG/ML) IN SER/MQLF265.0 ng/pEYfamcp59.0-307.0UnChillicothe HospitalComment on above:Performed By: #### [id number] ####[facility] (BEAKER)[address] [place], [place] [address]FTNJHFzj 62-24-6303VKGRUA (NG/ML) IN SER/PLAS18.26 ng/mLNormal6.6-1000[facility] Comment on above:Performed By: #### [id number] #### [facility] ([facility]) [address] [place] [place] [address]KQzo 16-20-3382FY Attestation signed by Rickey Jackson MD at 05/02/2025 11:12 AM Rickey Jackson MD, MPH, [facility], [facility], [facility] Interventional Cardiology Pager Email: [email or web address] She is a 74-year-old woman with prior history of hypertension, diabetes and 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 H&P reviewed. The patient was examined and there are no changes to the H&P. NormalUnChillicothe HospitalIRON AND TIBCon 07-76-4981KVXT (UG/DL) IN SER/PLAS53 ug/pFAkxrap59-703LeupzrqppwChillicothe HospitalComment on above:Performed By: #### [id number] ####[facility] ([employer]ERIKA)[address] [place] [address]ILSP BINDING CAPACITY (UG/DL) IN SER/TKZV785 ug/kYBrs033-413 [facility] HospitalComment on above:Performed By: #### [id number] ####[facility] ([employer])[address] [place] [address]OLHJ BINDING CAPACITY.UNSATURATED (UG/DL) IN SER/GQJH309.0 ug/mPNwxiay603.0-355.0UnChillicothe HospitalComment on above:Performed By: #### [id number] ####[facility] ([facility])[address] [place] [address]YUKT SATURATION (%) IN SER/PLAS23 %Njvkud87-22DlgwdrlfokChillicothe HospitalComment on above: Performed By: #### [id number] ####[facility] ([facility])[address] [place] [address]RDUAUQEMGls 50-39-6476Nsmnoprfe [Mass/Vol]2.1 mg/dLNormal 1.9-2.7UnChillicothe HospitalComment on above:Performed By: #### [id number] #### [facility] ([facility]) [address] [place] [address]SLWT GLUCOSE METER UNSOLICITED RESULTSon 49-59-8747Mgythdp [Mass/Vol]212 mg/eUDczd37-971QmbsbbwlnxChillicothe HospitalComment on above:Order Comment: Waived Testing in the ED is performed under the ED CLIA certificate #[id number].Result Comment: [email or web address] By: #### [id number] #### [facility] ([facility]) [address] [place] [address]Spkekrq [Mass/Vol]199 mg/xWUooa84-220LmazrlmjqeChillicothe HospitalComment on above:Order Comment: Waived Testing in the ED is performed under the ED CLIA certificate #[id number].Result Comment: asavill Performed By: #### [id number] #### [facility] ([facility]) [address] [place], [place] [address]Pkuljuk [Mass/Vol]158 mg/qMIwbt02-337JbitpetftgChillicothe HospitalComment on above:Order Comment: Waived Testing in the ED is performed under the ED CLIA certificate #[id number].Result Comment: [email or web address] Performed By: #### [id number] ####[facility] ([facility])[address] [place] [address]JKFAIOCILDYI PANELon 51-41-0662EKDGAGQWRJ (PG) IN APFEUOXMYDTCK77.9 anKyqztk30.0-36.0UnChillicothe HospitalComment on above:Performed By: #### [id number] ####[facility] ([facility])[address] [address]ZDXAKUFD RETICULOCYTE FRACTION (%)22.4 %High2-16UnChillicothe HospitalComment on above:Performed By: #### [id number] ####[facility] ([facility])[address] [place] [address]ASHXSGNTZTWLF (10*6/UL) IN BLOOD0.1054 10*6/uLHigh0.0250-0.1000UnChillicothe Hospital Comment on above:Performed By: #### [id number] ####[facility] ([facility])[address] [place] [address]Qxchyqqaxsxox/100 RBC (Bld)3.50 %High0.50-1.80 [facility] HospitalComment on above:Performed By: #### [id number] ####[facility] ([facility])[address] [place] [address]PTL3 REFLEX TO FT4on 93-11-8811INRCUGDBVAM (MIU/L) IN SER/PLAS BY DETECTION LIMIT <= 0.05 MIU/L 4.54 mIU/LNormal0.34-5.60UnChillicothe HospitalComment on above: Performed By: #### [id number] #### [facility] ([facility]) [address] [place] [address]JZFVVGD B12on 12-41-7114Mbkisynrv (Vitamin B12) [Mass/Vol]424 pg/tTZhwfsh370-714QkiemdqukbChillicothe HospitalComment on above:Result Comment: REFERENCE RANGES: 180-914 pg/mL Normal 145-179 pg/mL Indeterminate <145 pg/mL DeficientPerformed By: #### [id number] #### [facility] (BEAKER) [address] [place], [place] [address]Assnqc Visiton 53-12-5356Lnspsn-up [id number] SameerAmrik mastness Conklin 1950 F Date Provider Department Center 05/01/2025 166-DEACON TO CARD [facility] Family History Problem Relation Age of Onset Heart attack Mother Heart failure Mother Heart attack Father Family Status - Relation Status Age at Mother Father Level of Service:79395 [place] OFFICE/OUTPATIENT ESTABLISHED [facility] 40 MIN Reason for Visit and Comments: Follow-up [869557] - Patient is here today for a 2 week follow up. Patient states she is not doing well, Patient is very SOB. Patient has been unable to eat, and vomiting up her medication. Patient states when she exhales she hears a whistling. Coronary Artery Disease [187] Congestive Heart Failure [127] Hypertension [835399] Heart Murmur [124] Hyperlipidemia [182] Shortness of Breath [137523] - SOB/MCALLISTER increased over the last 3 to 4 days. Patient pulse ox at home has been 84 with movement and 94 with sitting. Patient is unable to lay flat to sleep using 4 pillows. Fatigue [46] - Greatly increased Edema [8700283102] - Bilateral leg and abdominal swelling Chest Pain [259958] - Patient has been using dee for chest and back pain. 3 different times. Patient states it relieved chest and back pain Cough [28] - IncreasedNormalUniversity of [facility]36on [place] back from Dr. Jenkins's office and he is ok with change in Bumex dose per Dalia To. Patient made aware via message in [employer].[facility]36Regarding CXR result from 04/25/2025: Deacon To, WORK[employer] Michelle Dias MA CXR notes mild CHF [...] office regarding increase in Bumex per Dalia To.[facility]36on 76-43-018736Lnaaso have her get a CXR and ask if she is feeling like she is having fluid retention. If she is thinking she may have fluid retention would like nephro's input on bumex dosing. She could benefit from a sleep study. Can also consider a 6 minute walk test, but if oxygen is needed this will need to come from PCP or pulmonary. Thank EugeniaBarnesville HospitalErythrocyte distribution width Auto (RBC) [Ratio]Ordered By: Geneva Jenkins on 66-38-5435Puytkwxynme distribution width (RBC) [Ratio]14.6 %11.0-15.0J.W. Ruby Memorial HospitalGlomerular filtration rate (GFR) estimation in non- AmericanOrdered By: Geneva Jenkins on 57-62-4215SOB/1.73 sq M.predicted among non-blacks MDRD (S/P/Bld) [Vol rate/Area]18 mL/min/{1.73_m2}Low>=60 mL/min/1.73m 2FHocking Valley Community HospitalHematocrit Auto (Bld) [Volume fraction]Ordered By: Geneva Jenkins on 24-29-0601Msdgktmmxd (Bld) [Volume fraction]31.7 %Low36.0-48.0J.[facility]. [facility] Memorial HospitalHemoglobin [Mass/volume] in BloodOrdered By: Geneva Jenkins on 41-79-5514Gbhkygenol (Bld) [Mass/Vol]10.4 g/dLLow12.0-16.0J.[facility] Memorial HospitalIron binding capacity [Mass/volume] in Serum or PlasmaOrdered By: Geneva Jenkins on 13-65-1822Fqyd binding capacity [Mass/Vol]247.0 ug/dLLow 250.0-450.0J.[facility]. Ruby Memorial HospitalIron saturation [Mass Fraction] in Serum or PlasmaOrdered By: Geneva Jenkins on 06-83-1373Cpvj saturation [Mass fraction]21.9 %[facility] HospitalLaboratory - Chemistry and Chemistry - challengeOrdered By: Geneva Jenkins on 85-32-8900Axovljs [Mass/Vol]3.7 g/dL3.4-5.0J.[facility] Memorial HospitalCalcium [Mass/Vol]9.1 mg/dL8.5-10.1 [facility] HospitalChloride [Moles/Vol]102 mmol/T62-872YntyvswroJ.W. Ruby Memorial HospitalCO2 [Moles/Vol]23.4 mmol/L21.0-32.0[facility] HospitalCreatinine [Mass/Vol]2.63 mg/dLHigh0.55-1.02J.[facility]. [facility] Memorial HospitalFerritin [Mass/Vol]220.0 ng/mL8.0-252.0J.[facility] Memorial HospitalGFR/1.73 sq M.predicted MDRD (S/P/Bld) [Vol rate/Area]22 mL/min/{1.73_m2} Low>=60 mL/min/1.73m 2FHocking Valley Community HospitalGlucose [Mass/Vol]182 mg/oQBbkh97-576FwzolpbitJ.W. Ruby Memorial HospitalIron [Mass/Vol]54.0 ug/dL 50.0-170.0J.[facility]. [facility] Memorial HospitalMagnesium [Mass/Vol]2.4 mg/dL1.8-2.4 [facility] HospitalPotassium [Moles/Vol]3.6 mmol/L3.5-5.1FNewark Hospitalodium [Moles/Vol]134 mmol/WFqt954-440GlligmpiiJ.W. Ruby Memorial HospitalUrate [Mass/Vol]5.0 mg/dL2.6-6.0[facility] Urea nitrogen [Mass/Vol]56.0 mg/dLHigh7.0-18.0[facility] Urea nitrogen/Creatinine [Mass ratio]21.3 mg/mgJ.W. [facility] Hospital Bilirubin Ql (U)NegativeNEGATIVEJ.W. Ruby Memorial HospitalGlucose (U) [Mass/Vol]NegativeNEGATIVEJ.W. Ruby Memorial HospitalKetones Ql (U) NegativeNEGATIVEJ.W. Ruby Memorial HospitalpH (U)6.0 [pH]5.0-9.0Wood County Hospitalpecific gravity (U) [Rel density]1.0201.005-1.025 [facility] HospitalUrobilinogen Qn (U)0.2 {Kelly'U}/dL0.2-1.0 [facility] HospitalLaboratory - Specimen informationOrdered By: Geneva Jenkins on 28-11-8087Opcnswgurc (U)CLEARCLEARFHocking Valley Community HospitalColor (U)LT. YELLOWYELLOWJ.W. Ruby Memorial HospitalLaboratory - UrinalysisOrdered By: Geneva Jenkins on 60-83-9180Aeatnncfc esterase Test strip Ql (U)SMALLAbnormalNEGATIVEJ.W. Ruby Memorial HospitalMucus Ql (Urine sed) NONE SEENNONE SEENJ.W. Ruby Memorial HospitalNitrite Ql (U)Negative NEGATIVEJ.W. Ruby Memorial HospitalProtein (U) [Mass/Vol]317.2 mg/dLHigh <=11.9J.[facility]. [facility] Memorial HospitalProtein Ql (U)>=300 mg/dLAbnormal NEG/TRACEJ.W. Ruby Memorial HospitalLeukocytes [#/volume] corrected for nucleated erythrocytes in Blood by Automated counOrdered By: Geneva Jenkins on 96-83-7915ZRS corrected for nucl RBC Auto (Bld) [#/Vol]11.0 10 3/uL4.0-11.0 [facility] HospitalH Auto (RBC) [Entitic mass]Ordered By: Geneva Jenkins on 75-67-5742DSE (RBC) [Entitic mass]29.5 pg26.7-34.0[facility] HospitalHC Auto (RBC) [Mass/Vol]Ordered By: Geneva Jenkins on 04-18-2025 MCHC (RBC) [Mass/Vol]32.8 g/dL29.9-35.2FHocking Valley Community HospitalMCV Auto (RBC) [Entitic vol]Ordered By: Geneva Jenkins on 43-51-7878JFC (RBC) [Entitic vol] 89.8 fL81.0-99.0J.[facility]. [facility] Memorial HospitalNo Panel InformationOrdered By: Geneva Jenkins on 841905-Cmchwhu Vitamin D Total58.2 ng/mLJ.W. Ruby Memorial HospitalComment on above:<20 ng/mL Vit D etqgpfwmc50-<30 ng/mL Vit D bweglhaxussu76-628 ng/mL Vit D sufficient>100 ng/mL Potential Toxicity Parathyroid Hormone (Intact)62 pg/cM66-68ZfdpooljkJ.W. Ruby Memorial Hospital Comment on above:Performed at: - [facility] [address] [id number] Director: Curry Rizzo PhD, Phone: [phone] Level 4.6 mg/dL2.6-4.7FHocking Valley Community HospitalUrine BacteriaMODERATE #/HPF AbnormalNONE [facility] RehabilitationUrine Occult BloodSMALL AbnormalNEGATIVEJ.W. Ruby Memorial HospitalUrine Other CastsNONE SEEN #/LPFNONE [facility] RehabilitationUrine Other CrystalsNone Seen #/HPFNone [facility] OhioUrine Random Xlafvlpvon05.88 mg/dL20.00-300.00J.[facility]. Ruby Memorial HospitalUrine RBC5-10 #/HPFAbnormal0-2 [facility] Memorial HospitalUrine Squamous Epithelial CellsFEW #/LPF AbnormalNONE/RAREJ.W. Ruby Memorial HospitalUrine WBC5-10 #/HPFAbnormal NONE [facility] for RehabilitationPlatelet mean volume Auto (Bld) [Entitic vol]Ordered By: Geneva Jenkins on 27-82-6711Kgmizfyx mean volume (Bld) [Entitic vol]11.1 fL9.5-13.5FHocking Valley Community HospitalPlatelets Auto (Bld) [#/Vol]Ordered By: Geneva Murillor on 08-55-0061Cpxqxasqw (Bld) [#/Vol]191 10 3/dZ660-779GerbmlddrJ.W. Ruby Memorial HospitalRBC Auto (Bld) [#/Vol]Ordered By: Geneva Dicksondir on 27-17-6524LLE (Bld) [#/Vol]3.53 10 6/uLLow4.20-5.40Wood County Hospitalerum or plasma anion gap determinationOrdered By: Geneva Jenkins on 24-82-1478Qpmpi gap [Moles/Vol]12.2 mmol/LFHocking Valley Community HospitalUrine protein/creatinine ratioOrdered By: Geneva Jenkins on 04-18-2025 Protein/Creatinine (U) [Ratio]4.07[facility]37on *Will have her go back up to 75mg BID for HTN management. *Increase bumex to 2mg BID. *Have weekly labs to follow-up on kidney functionNormalUniWilson Street HospitalOffice Visiton 06-07-0417Ahvppv-up [id number] Claudia Estrella 1950 F Date Provider Department Center 04/15/2025 166-DEACON TO ADY [facility] Family History Problem Relation Age of Onset Heart attack Mother Heart failure Mother Heart attack Father Family Status - Relation Status Age at Mother Father Level of Service:81662 [place] OFFICE/OUTPATIENT ESTABLISHED MOD MDM 30 MIN Reason for Visit and Comments: Follow-up [782896] - Patient is here today for a follow up [facility] admission. Patient states she feels better but not great. Patient states the Hospitalist changed her medications and cut her bumex in half, changed her potassium to 1 a day. Coronary Artery Disease [187] Hypertension [519742] Hyperlipidemia [182] Congestive Heart Failure [127] Heart Murmur [124] stage 4 kidney disease [Other] Shortness of Breath [182265] - MCALLISTER.NormalUnChillicothe Hospital Orders Onlyon 65-32-6990Kzthqm [id number] Claudia Estrella 1950 F Date Provider Department Center 04/10/2025 C2286-TAYFGCHA, HISTORICAL ADY [facility] Family History Problem Relation Age of Onset Heart attack Mother Heart failure Mother Heart attack Father Family Status - Relation Status Age at Mother Father DeceasedNormalUniversFisher-Titus Medical CenterHPon 99-41-5936IFQB Cardiology - [facility] Subjective Claudia Estrella is a 74 [...] warm and dry. Neurologi (more content not included)...NormalUnChillicothe HospitalOffice Visiton 22-06-3981Sehicc-up [id number] Claudia Estrella 1950 F Date Provider Department Center 04/07/2025 KARTHIK MACKAY ADY [facility] Family History Problem Relation Age of Onset Heart attack Mother Heart failure Mother Heart attack Father Family Status - Relation Status Age at Mother Father Level of Service:36801 [place] OFFICE/OUTPATIENT ESTABLISHED MOD MDM 30 [facility] ToledoErythrocyte distribution width Auto (RBC) [Ratio]Ordered By: Geneva Jenkins on 66-23-8253Sijqhwffjxf distribution width (RBC) [Ratio]13.7 %11.0-15.0J.[facility] HospitalEstimated glomerular filtration rate (GFR) non- AmericanOrdered By: Geneva Jenkins on 01-20-2025 GFR/1.73 sq M.predicted among non-blacks MDRD (S/P/Bld) [Vol rate/Area]20 mL/min/{1.73_m2}Low>=60 mL/min/1.73m 2FHocking Valley Community Hospital Hematocrit Auto (Bld) [Volume fraction]Ordered By: Geneva Jenkins on 01-20-2025 Hematocrit (Bld) [Volume fraction]32.6 %Low36.0-48.0J.[facility]. [facility] Memorial HospitalHemoglobin [Mass/volume] in BloodOrdered By: Geneva Jenkins on 01-20-2025 Hemoglobin (Bld) [Mass/Vol]11.1 g/dLLow12.0-16.0J.[facility] Memorial HospitalIron binding capacity [Mass/volume] in Serum or PlasmaOrdered By: Geneva Jenkins on 81-99-0327Aqbo binding capacity [Mass/Vol]279.0 ug/dL250.0-450.0 [facility] HospitalIron saturation [Mass Fraction] in Serum or PlasmaOrdered By: Geneva Jenkins on 17-02-5510Tqjq saturation [Mass fraction]17.9 % [facility] HospitalLaboratory - Chemistry and Chemistry - challengeOrdered By: Geneva Jenkins on 99-28-6485Rlsfpqk [Mass/Vol]3.2 g/dLLow 3.4-5.0J.[facility] Memorial HospitalCalcium [Mass/Vol]9.2 mg/dL8.5-10.1 [facility] HospitalChloride [Moles/Vol]105 mmol/L66-874OfemdekfiJ.W. Ruby Memorial HospitalCO2 [Moles/Vol]25.4 mmol/L21.0-32.0[facility] HospitalCreatinine [Mass/Vol]2.33 mg/dLHigh0.55-1.02J.[facility]. [facility] Memorial HospitalGFR/1.73 sq M.predicted MDRD (S/P/Bld) [Vol rate/Area]25 mL/min/{1.73_m2}Low>=60 mL/min/1.73m 2FHocking Valley Community HospitalGlucose [Mass/Vol]158 mg/oIDgcp94-010DktncmjgfJ.W. Ruby Memorial HospitalIron [Mass/Vol] 50.0 ug/dL50.0-170.0J.[facility]. [facility] Memorial HospitalMagnesium [Mass/Vol]2.1 mg/dL1.8-2.4FHocking Valley Community HospitalPotassium [Moles/Vol]4.2 mmol/L 3.5-5.1FNewark Hospitalodium [Moles/Vol]142 mmol/B036-652 [facility] Memorial HospitalUrate [Mass/Vol]5.4 mg/dL2.6-6.0[facility] HospitalUrea nitrogen [Mass/Vol]50.0 mg/dLHigh7.0-18.0J.[facility] HospitalUrea nitrogen/Creatinine [Mass ratio]21.5 mg/mgJ.W. Ruby Memorial HospitalBilirubin Ql (U)NegativeNEGUniversity Hospitals Portage Medical CenterGlucose (U) [Mass/Vol]NegativeNEGUniversity Hospitals Portage Medical CenterKetones Ql (U)NegativeNEGUniversity Hospitals Portage Medical CenterpH (U)6.0 [pH]5.0-9.0Wood County Hospitalpecific gravity (U) [Rel density] 1.0201.005-1.025J.W. Ruby Memorial HospitalUrobilinogen Qn (U)0.2 {Kelly'U}/dL0.2-1.0[facility] HospitalLaboratory - Specimen informationOrdered By: Geneva Jenkins on 93-89-4458Hpjmlhqdcg (U)CLEARCLEAR [facility] Memorial HospitalColor (U)LT. YELLOWYELLOWJ.W. Ruby Memorial HospitalLaboratory - UrinalysisOrdered By: Geneva Jenkins on 01-20-2025 Leukocyte esterase Test strip Ql (U)TRACEAbnormalNEGUniversity Hospitals Portage Medical CenterMucus Ql (Urine sed)TRACEAbnormalNONE SEENJ.W. Ruby Memorial HospitalNitrite Ql (U)NegativeNEGUniversity Hospitals Portage Medical Center Protein (U) [Mass/Vol]167.6 mg/dLHigh<=11.9[facility] Protein Ql (U)>=300 mg/dLAbnormalNEG/TRACEJ.W. [facility] Hospital Leukocytes [#/volume] corrected for nucleated erythrocytes in Blood by Automated counOrdered By: Geneva Jenkins on 98-34-2355UDO corrected for nucl RBC Auto (Bld) [#/Vol]9.0 10 3/uL4.0-11.0[facility] Auto (RBC) [Entitic mass]Ordered By: Geneva Jenkins on 66-36-7171DST (RBC) [Entitic mass]29.8 pg26.7-34.0[facility] Cross HospitalHC Auto (RBC) [Mass/Vol]Ordered By: Geneva Jenkins on 27-59-6032MOTH (RBC) [Mass/Vol]34.0 g/dL29.9-35.2FCincinnati Shriners HospitalV Auto (RBC) [Entitic vol]Ordered By: Geneva Jenkins on 01-94-5169VPA (RBC) [Entitic vol]87.4 fL81.0-99.0J.[facility]. [facility] Memorial HospitalNo Panel InformationOrdered By: Geneva Jenkins on 944000-Whbppvo Vitamin D Total46.0 ng/mLJ.W. Ruby Memorial HospitalComment on above:<20 ng/mL Vit D dcerajejo96-<30 ng/mL Vit D vywcpxdtixsc50-729 ng/mL Vit D sufficient>100 ng/mL Potential ToxicityMiscellaneous TestCOMMENT.J.W. Ruby Memorial HospitalComment on above:Test Ordered: [id number] FerritinFerritin 153 [H ] ng/mL Reference Range: 15-150Performed at: [employer] [id number] Director: Crury Rizzo PhD, Phone: [phone] Hormone (Intact)58 pg/xF81-44KshnydwtdJ.W. Ruby Memorial HospitalComment on above:Performed at: - [employer] [id number] Director: Curry Rizzo PhD, Phone: [phone] Phosphorus Level4.6 mg/dL2.6-4.7FHocking Valley Community HospitalUrine Bacteria TRACE #/HPFAbnormalNONE [facility] RehabilitationUrine Occult Blood TRACE-INEGATIVEJ.W. Ruby Memorial HospitalUrine Other CastsNONE SEEN #/LPF NONE [facility] RehabilitationUrine Other CrystalsNone Seen #/HPF None [facility] OhioUrine Random Ahkekklkbl82.76 mg/dL 20.00-300.00J.[facility]. Ruby Memorial HospitalUrine RBC2-5 #/HPFAbnormal0-2 [facility] Memorial HospitalUrine Squamous Epithelial CellsFEW #/LPF AbnormalNONE/RAREJ.W. Ruby Memorial HospitalUrine WBC0-2 #/HPFAbnormalNONE [facility] for RehabilitationPlatelet mean volume Auto (Bld) [Entitic vol]Ordered By: Geneva Jenkins on 04-97-0723Tqrdqzzn mean volume (Bld) [Entitic vol]10.6 fL9.5-13.5FHocking Valley Community HospitalPlatelets Auto (Bld) [#/Vol] Ordered By: Geneva Jenkins on 94-69-5402Vnlgquzmo (Bld) [#/Vol]177 10 3/mW304-061 [facility] Memorial HospitalRBC Auto (Bld) [#/Vol]Ordered By: Geneva Mary Grace on 60-88-6396VAJ (Bld) [#/Vol]3.73 10 6/uLLow4.20-5.40Wood County Hospitalerum or plasma anion gap determinationOrdered By: Geneva Jenkins on 54-57-0630Lvevu gap [Moles/Vol]15.8 mmol/LFHocking Valley Community HospitalUrine protein/creatinine ratioOrdered By: Geneva Jenkins on 53-20-0803Upxtsir/Creatinine (U) [Ratio]5.45J.[facility]. [facility] Memorial HospitalPerimetry studyon 11-26-2024 [facility] HealthcareRadiology Study observation (narrative)[facility] Fpqgefwpfi44yv 55-81-996931Zuaanmrzg echo result from 10/04/2024: MD Michelle Tan MA Please tell her the echo showed normal cardiac function with evidence of extra fluid in the body. Depending on symptoms of shortness of breath, she can take extra 0.5 tablet of bumex on as needed basis. Follow up as planned. Patient informed. She verbalized understanding.NormalParkview Health Bryan HospitalOffice Visiton 41-63-7411Tognel-up [id number] Claudia Estrella 1950 F Date Provider Department Center 09/16/2024 KARTHIK MACKAY ADY [facility] Family History Problem Relation Age of Onset Heart attack Mother Heart failure Mother Heart attack Father Family Status - Relation Status Age at Mother Father Level of Service:64027 [place] OFFICE/OUTPATIENT ESTABLISHED MOD MDM 30 [facility] ToledoErythrocyte distribution width Auto (RBC) [Ratio]on 90-26-5458Shenxkbppss distribution width (RBC) [Ratio]Erythrocyte distribution width [Ratio] by Automated count11.0-15.0J.W. Ruby Memorial HospitalEstimated glomerular filtration rate (GFR) non- Americanon 94-47-3661WWM/1.73 sq M.predicted among non-blacks MDRD (S/P/Bld) [Vol rate/Area]Estimated glomerular filtration rate (GFR) non- AmericanLow>=60 mL/min/1.73m 2FHocking Valley Community HospitalHematocrit Auto (Bld) [Volume fraction]on 01-71-7231Ywvvxtdykm (Bld) [Volume fraction]Hematocrit [Volume Fraction] of Blood by Automated zptbiVqo10.0-48.0J[facility] HospitalHemoglobin [Mass/volume] in Bloodon 89-80-9542Vjbxxemevt (Bld) [Mass/Vol] Hemoglobin [Mass/volume] in ShkjeRlj52.0-16.0[facility] Iron binding capacity [Mass/volume] in Serum or Plasmaon 30-71-0564Tovc binding capacity [Mass/Vol]Iron binding capacity [Mass/volume] in Serum or PlasmaLow 250.0-450.0J.[facility] HospitalIron saturation [Mass Fraction] in Serum or Plasmaon 66-85-3437Zsjb saturation [Mass fraction]Iron saturation [Mass Fraction] in Serum or PlasmaJ.W. Ruby Memorial HospitalLaboratory - Chemistry and Chemistry - challengeon 19-27-0813Cydhrzu [Mass/Vol]3.4 g/dL 3.4-5.0[facility] HospitalCalcium [Mass/Vol]9.3 mg/dL8.5-10.1 [facility] HospitalChloride [Moles/Vol]100 mmol/X71-131BxwmpubquJ.W. Ruby Memorial HospitalCO2 [Moles/Vol]28.1 mmol/L21.0-32.0[facility] HospitalCreatinine [Mass/Vol]2.44 mg/dLHigh0.55-1.02[facility] HospitalFerritin [Mass/Vol]145.0 ng/mL8.0-252.0[facility] HospitalGFR/1.73 sq M.predicted MDRD (S/P/Bld) [Vol rate/Area]24 mL/min/{1.73_m2} Low>=60 mL/min/1.73m 2FHocking Valley Community HospitalGlucose [Mass/Vol]162 mg/rMNkua01-499KfetyjabmJ.W. Ruby Memorial HospitalIron [Mass/Vol]53.0 ug/dL 50.0-170.0[facility] HospitalMagnesium [Mass/Vol]2.0 mg/dL1.8-2.4 [facility] HospitalPotassium [Moles/Vol]3.2 mmol/LLow3.5-5.1 [facility] Hospitalodium [Moles/Vol]140 mmol/T117-368GffniuskvJ.W. Ruby Memorial HospitalUrate [Mass/Vol]6.3 mg/dLHigh2.6-6.0[facility] HospitalUrea nitrogen [Mass/Vol]46.0 mg/dLHigh7.0-18.0[facility] HospitalUrea nitrogen/Creatinine [Mass ratio]18.9 mg/mgJ.W. Ruby Memorial HospitalLaboratory - Urinalysison 30-21-8520Vrsaitu (U) [Mass/Vol]197.4 mg/dLHigh<=11.9J[facility] HospitalLeukocytes [#/volume] corrected for nucleated erythrocytes in Blood by Automated counon 92-97-3393MRR corrected for nucl RBC Auto (Bld) [#/Vol]Leukocytes [#/volume] corrected for nucleated erythrocytes in Blood by Automated coun4.0-11.0[facility] MCH Auto (RBC) [Entitic mass]on 97-98-0086QBM (RBC) [Entitic mass]MCH [Entitic mass] by Automated count26.7-34.0J[facility] HospitalMCHC Auto (RBC) [Mass/Vol]on 79-73-0083FMZR (RBC) [Mass/Vol]MCHC [Mass/volume] by Automated count29.9-35.2FHocking Valley Community HospitalMCV Auto (RBC) [Entitic vol]on 22-00-5646ZVH (RBC) [Entitic vol]MCV [Entitic volume] by Automated count 81.0-99.0[facility] HospitalNo Panel Informationon - Hydroxy Vitamin D Total51.6 ng/mLJ.W. Ruby Memorial HospitalComment on above:<20 ng/mL Vit D udzlajazo05-<30 ng/mL Vit D kegdngkjdzue40-812 ng/mL Vit D sufficient>100 ng/mL Potential ToxicityParathyroid Hormone (Intact)78 pg/mL Idffenzk14-63QwxorwauyJ.W. Ruby Memorial HospitalComment on above:Performed at: [facility] [place] [id number] Director: Curry Rizzo PhD, Phone: [phone] Level5.4 mg/dLHigh2.6-4.7FHocking Valley Community HospitalUrine Random Bewzssvecv04.10 mg/dL20.00-300.00J[facility] HospitalPlatelet mean volume Auto (Bld) [Entitic vol]on 10-52-5023Hhtmjytb mean volume (Bld) [Entitic vol]Platelet mean volume [Entitic volume] in Blood by Automated count9.5-13.5FHocking Valley Community Hospital Platelets Auto (Bld) [#/Vol]on 20-54-7301Tqscgnfok (Bld) [#/Vol]Platelets [#/volume] in Blood by Automated asmss763-256OwjcbrzcdJ.W. [facility] Hospital RBC Auto (Bld) [#/Vol]on 08-00-8264QWK (Bld) [#/Vol]Erythrocytes [#/volume] in Blood by Automated countLow4.20-5.40[facility] County Hospitalerum or plasma anion gap determinationon 16-90-9315Wulrz gap [Moles/Vol]Serum or plasma anion gap determinationJ.W. Ruby Memorial HospitalUrine protein/creatinine ratioon 56-89-8646Sbdyktu/Creatinine (U) [Ratio]Urine protein/creatinine ratio [facility] HospitalOphthalmic OCT panelon 00-64-7580CNECMercy Hospital [facility] Eye Images reviewed and comparison made to baseline, Images reviewed. To assess optic nerve function and for use in future follow-up. Reliability: good and adequate. Left Eye Images reviewed and comparison made to baseline, Images reviewed. To assess optic nerve function and for use in future follow-up. Reliability: good and adequate. Notes Superior nerve fiber layer (NFL) thinning both eyes (OU). Stable.[facility] HealthcareRadiology Study observation (narrative)[facility] HospitalOptical coherence tomography study reporton 91-58-3636DMWECommunity Health Radiology Study observation (narrative)[facility] HospitalErythrocyte distribution width Auto (RBC) [Ratio]on 94-49-8402Qeciftaolqe distribution width (RBC) [Ratio]Erythrocyte distribution width [Ratio] by Automated pqdvzRxqg10.0-15.0 [facility] HospitalEstimated glomerular filtration rate (GFR) non- Americanon 03-34-0002TBX/1.73 sq M.predicted among non-blacks MDRD (S/P/Bld) [Vol rate/Area]Estimated glomerular filtration rate (GFR) non- AmericanLow>=60 mL/min/1.73m 2FHocking Valley Community HospitalHematocrit Auto (Bld) [Volume fraction]on 64-65-3020Ohhmnontbj (Bld) [Volume fraction]Hematocrit [Volume Fraction] of Blood by Automated xqwnnRps38.0-48.0[facility] HospitalHemoglobin [Mass/volume] in Bloodon 34-79-4042Xkrsvwccpu (Bld) [Mass/Vol]Hemoglobin [Mass/volume] in PjwhfEyp75.0-16.0[facility] HospitalIron binding capacity [Mass/volume] in Serum or Plasmaon 56-32-3104Mlxl binding capacity [Mass/Vol]Iron binding capacity [Mass/volume] in Serum or Rcrwef772.0-450.0[facility] HospitalIron saturation [Mass Fraction] in Serum or Plasmaon 57-47-8545Qxxv saturation [Mass fraction] Iron saturation [Mass Fraction] in Serum or PlasmaJ.W. Ruby Memorial HospitalLaboratory - Chemistry and Chemistry - challengeon 74-98-6014Uyeoolr [Mass/Vol]3.3 g/dLLow3.4-5.0[facility] HospitalCalcium [Mass/Vol] 9.2 mg/dL8.5-10.1FHocking Valley Community HospitalChloride [Moles/Vol]103 mmol/L 98-107J.[facility] HospitalCO2 [Moles/Vol]25.9 mmol/L21.0-32.0 [facility] HospitalCreatinine [Mass/Vol]2.24 mg/dLHigh0.55-1.02 [facility] HospitalFerritin [Mass/Vol]151.0 ng/mL8.0-252.0 [facility] HospitalGFR/1.73 sq M.predicted MDRD (S/P/Bld) [Vol rate/Area]26 mL/min/{1.73_m2}Low>=60 mL/min/1.73m 2FHocking Valley Community HospitalGlucose [Mass/Vol]169 mg/yAYabq58-163PumlgsevvJ.W. Ruby Memorial HospitalIron [Mass/Vol]41.0 ug/dLLow50.0-170.0[facility] HospitalMagnesium [Mass/Vol]2.0 mg/dL1.8-2.4FHocking Valley Community HospitalPotassium [Moles/Vol] 3.6 mmol/L3.5-5.1FNewark Hospitalodium [Moles/Vol]141 mmol/L 136-145J.[facility]. [facility] HospitalUrate [Mass/Vol]5.1 mg/dL2.6-6.0 [facility] HospitalUrea nitrogen [Mass/Vol]44.0 mg/dLHigh7.0-18.0 [facility] HospitalUrea nitrogen/Creatinine [Mass ratio]19.6 mg/mg [facility] HospitalBilirubin Ql (U)NegativeNEGATIVEJ.W. Ruby Memorial HospitalGlucose (U) [Mass/Vol]NegativeNEGATIVEJ.W. Ruby Memorial HospitalKetones Ql (U)NegativeNEGATIVEJ.W. Ruby Memorial HospitalpH (U)5.5 [pH]5.0-9.0[facility] County Hospitalpecific gravity (U) [Rel density]1.0201.005-1.025J.[facility]. [facility] HospitalUrobilinogen Qn (U)0.2 {Kelly'U}/dL0.2-1.0[facility] HospitalLaboratory - Specimen informationon 93-02-0511Gmjlqmonwa (U)CLEARCLEARFHocking Valley Community HospitalColor (U)LT. YELLOWYELLOWJ.W. Ruby Memorial HospitalLaboratory - Urinalysison 36-05-3533Mqydkqn casts LM Ql (Urine sed)RAREJ.W. Ruby Memorial HospitalLeukocyte esterase Test strip Ql (U)MODERATEAbnormalNEGATIVE [facility] HospitalMucus Ql (Urine sed)TRACEAbnormalNONE SEEN [facility] HospitalNitrite Ql (U)NegativeNEGATIVEJ.W. Ruby Memorial HospitalProtein (U) [Mass/Vol]122.0 mg/dLHigh<=11.9J[facility] HospitalProtein Ql (U)100 mg/dLAbnormalNEG/TRACEJ.W. Ruby Memorial HospitalLeukocytes [#/volume] corrected for nucleated erythrocytes in Blood by Automated counon 58-02-0245YWF corrected for nucl RBC Auto (Bld) [#/Vol]Leukocytes [#/volume] corrected for nucleated erythrocytes in Blood by Automated coun4.0-11.0[facility] HospitalH Auto (RBC) [Entitic mass]on 40-68-9684JGI (RBC) [Entitic mass]MCH [Entitic mass] by Automated count26.7-34.0[facility] HospitalMCHC Auto (RBC) [Mass/Vol]on 69-36-2894KFAE (RBC) [Mass/Vol]MCHC [Mass/volume] by Automated count29.9-35.2FHocking Valley Community HospitalMCV Auto (RBC) [Entitic vol]on 62-49-5664QYL (RBC) [Entitic vol]MCV [Entitic volume] by Automated count 81.0-99.0[facility] HospitalNo Panel Informationon 98-65-232510- Hydroxy Vitamin D Total56.3 ng/mLJ.W. Ruby Memorial HospitalComment on above:<20 ng/mL Vit D -<30 ng/mL Vit D ayiadsyaikcq13-414 ng/mL Vit D sufficient>100 ng/mL Potential ToxicityParathyroid Hormone (Intact)9 pg/mL Gimxmyia23-04AprmkhtecJ.W. Ruby Memorial HospitalComment on above:Performed at: - [place] [id number] Director: Curry Rizzo PhD, Phone: [phone] Level4.8 mg/dLHigh2.6-4.7FHocking Valley Community HospitalUrine BacteriaSMALL #/HPFAbnormalNONE [facility] RehabilitationUrine Occult BloodNegativeNEGATIVEJ.W. Ruby Memorial HospitalUrine Other CastsSEEN #/LPFAbnormalNONE [facility] RehabilitationUrine Other CrystalsNone Seen #/HPFNone [facility] OhioUrine Random Feahiukgqm70.86 mg/dL20.00-300.00J.[facility]. [facility] HospitalUrine RBC0-2 #/HPF0-2FHocking Valley Community HospitalUrine Squamous Epithelial CellsMODERATE #/LPFAbnormalNONE/RAREJ.W. Ruby Memorial HospitalUrine WBC2-5 #/HPFAbnormalNONE [facility] for RehabilitationPlatelet mean volume Auto (Bld) [Entitic vol]on 41-55-5088Kwupfimn mean volume (Bld) [Entitic vol]Platelet mean volume [Entitic volume] in Blood by Automated count9.5-13.5FHocking Valley Community HospitalPlatelets Auto (Bld) [#/Vol]on 09-82-5413Zncyhxzcs (Bld) [#/Vol]Platelets [#/volume] in Blood by Automated -018IeioqnttvJ.W. Ruby Memorial HospitalRBC Auto (Bld) [#/Vol]on 05-11-5750JVO (Bld) [#/Vol]Erythrocytes [#/volume] in Blood by Automated count Low4.20-5.40[facility] County Hospitalerum or plasma anion gap determinationon 96-21-2856Hvtsu gap [Moles/Vol]Serum or plasma anion gap determinationJ.W. Ruby Memorial HospitalUrine protein/creatinine ratioon 44-07-4990Ukibvlb/Creatinine (U) [Ratio]Urine protein/creatinine ratioJ.W. Ruby Memorial HospitalAlbumin [Mass/volume] in Serum or Plasmaon 01-01-2024 Albumin [Mass/Vol]3.5 g/dL2.9-4.4FHocking Valley Community HospitalErythrocyte distribution width Auto (RBC) [Ratio]on 91-25-1603Imjmznwvdtf distribution width (RBC) [Ratio]15.2 %High11.0-15.0[facility] HospitalEstimated glomerular filtration rate (GFR) non- Americanon 30-90-4046WCT/1.73 sq M.predicted among non-blacks MDRD (S/P/Bld) [Vol rate/Area]21 mL/min/{1.73_m2} Low>=60J.[facility]. [facility] HospitalHematocrit Auto (Bld) [Volume fraction] on 42-77-9642Ujzbzfoeql (Bld) [Volume fraction]32.4 %Low36.0-48.0[facility] HospitalHemoglobin [Mass/volume] in Bloodon 52-37-8595Opvvrnldat (Bld) [Mass/Vol]10.4 g/dLLow12.0-16.0[facility] HospitalIgA [Mass/volume] in Serum or Plasmaon 42-03-3540WmH [Mass/Vol]580 mg/dLAbnormal 64-422J.[facility]. [facility] HospitalIgG [Mass/volume] in Serum or Plasmaon 70-36-8704ZwT [Mass/Vol]1132 mg/gH972-9864GnevgscyhJ.W. Ruby Memorial HospitalIgM [Mass/volume] in Serum or Plasmaon 42-69-5100VqF [Mass/Vol]155 mg/iN29-539 [facility] HospitalImmunofixation for Urineon 01-01-2024 Interpretation Immunofixation (U) [Interp]Comment.J[facility] HospitalComment on above:No monoclonality detected.Performed at: [facility] [id number] Director: Curry Rizzo PhD, Phone: [phone] light chains.kappa.free [Mass/volume] in Serum on 56-15-9784Lipnvizqvnvvmi light chains.kappa.free (S) [Mass/Vol]75.5 mg/L Abnormal3.3-19.4FHocking Valley Community HospitalImmunoglobulin light chains.kappa.free/Immunoglobulin light chains.lambda.free [Priscilla 01-01-2024 Immunoglobulin light chains.kappa.free/Immunoglobulin light chains.lambda.free (S) [Mass ratio]1.250.26-1.65J.[facility]. [facility] HospitalComment on above: Performed at: [facility] [id number] Director: Curry Rizzo PhD, Phone: [phone] light chains.lambda.free [Mass/volume] in Serum or Plasmaon 26-45-5849Bjtuuklrdupsaf light chains.lambda.free [Mass/Vol]60.4 mg/LAbnormal5.7-26.3FHocking Valley Community HospitalIron binding capacity [Mass/volume] in Serum or Plasmaon 14-49-6714Ujmp binding capacity [Mass/Vol]266.0 ug/dL250.0-450.0J[facility] HospitalIron saturation [Mass Fraction] in Serum or Plasmaon 88-47-2598Mtns saturation [Mass fraction]16.2 %[facility] Laboratory - Chemistry and Chemistry - challengeon 45-93-0518Lqvicar [Mass/Vol] 3.3 g/dLLow3.4-5.0[facility] HospitalCalcium [Mass/Vol]9.2 mg/dL 8.5-10.1FHocking Valley Community HospitalChloride [Moles/Vol]103 mmol/L98-107 [facility] HospitalCO2 [Moles/Vol]27.3 mmol/L21.0-32.0[facility] HospitalCreatinine [Mass/Vol]2.28 mg/dLHigh0.55-1.02J.[facility] HospitalFerritin [Mass/Vol]123.0 ng/mL8.0-252.0[facility] HospitalGFR/1.73 sq M.predicted MDRD (S/P/Bld) [Vol rate/Area]26 mL/min/{1.73_m2}Low>=60J.[facility]. [facility] HospitalGlucose [Mass/Vol]139 mg/vRMunb59-143AplnfnaolJ.W. Ruby Memorial HospitalIron [Mass/Vol]43.0 ug/dLLow 50.0-170.0[facility] HospitalMagnesium [Mass/Vol]2.3 mg/dL1.8-2.4 [facility] HospitalPotassium [Moles/Vol]4.4 mmol/L3.5-5.1FNewark Hospitalodium [Moles/Vol]138 mmol/Z116-182QhtyqwbxsJ.W. Ruby Memorial HospitalUrate [Mass/Vol]5.9 mg/dL2.6-6.0[facility] Urea nitrogen [Mass/Vol]50.0 mg/dLHigh7.0-18.0[facility] Urea nitrogen/Creatinine [Mass ratio]21.9 mg/mgJ.W. [facility] Hospital Laboratory - Urinalysison 44-65-1938Igdjdzr (U) [Mass/Vol]93.2 mg/dLHigh<=11.9 [facility] HospitalLeukocytes [#/volume] corrected for nucleated erythrocytes in Blood by Automated counon 63-10-8051DXB corrected for nucl RBC Auto (Bld) [#/Vol]8.9 10 3/uL4.0-11.0[facility] HospitalH Auto (RBC) [Entitic mass]on 34-87-9366ACD (RBC) [Entitic mass]27.4 pg26.7-34.0 [facility] HospitalMCHC Auto (RBC) [Mass/Vol]on 83-21-9849RCEJ (RBC) [Mass/Vol]32.1 g/dL29.9-35.2FHocking Valley Community HospitalMCV Auto (RBC) [Entitic vol]on 42-82-1953XTA (RBC) [Entitic vol]85.3 fL81.0-99.0[facility] HospitalNo Panel Informationon 698591-Jvvqptm Vitamin D Total53.8 ng/mLJ.W. Ruby Memorial HospitalComment on above:<20 ng/mL Vit D eubfsagio85-<30 ng/mL Vit D vtrbdeuxcyfs70-588 ng/mL Vit D sufficient>100 ng/mL Potential ToxicityParathyroid Hormone (Intact)95 pg/uABjtfwhyj32-00OzxvqjuodJ.W. Ruby Memorial HospitalComment on above:Performed at: - [facility] [address] [id number] Director: Curry Rizzo PhD, Phone: [phone] Level4.0 mg/dL2.6-4.7FHocking Valley Community Hospital Protein Electrophoresis M-SpikeNot Observed g/dLNot ObservedJ.W. Ruby Memorial HospitalProtein Electrophoresis NoteComment.[facility] HospitalComment on above:Protein electrophoresis scan will follow via computer,mail, or streetcar conductor delivery.Urine Random Hhstmtfqwq06.24 mg/dL 20.00-300.00J.[facility] HospitalPlatelet mean volume Auto (Bld) [Entitic vol]on 85-52-9300Qfzfaufu mean volume (Bld) [Entitic vol]10.9 fL 9.5-13.5FHocking Valley Community HospitalPlatelets Auto (Bld) [#/Vol]on 14-28-7075Tvijspicy (Bld) [#/Vol]184 10 3/lY893-856HxjeqoriqJ.W. Ruby Memorial HospitalProtein [Mass/volume] in Serum or Plasmaon 92-87-6586Tvbmjpx [Mass/Vol]7.0 g/dL6.0-8.5FHocking Valley Community HospitalRBC Auto (Bld) [#/Vol]on 01-01-2024 RBC (Bld) [#/Vol]3.80 10 6/uLLow4.20-5.40[facility] Hospitalerum globulin measurement (mass/volume)on 13-74-5598Jgpkblta (S) [Mass/Vol]3.5 g/dL 2.2-3.9[facility] Hospitalerum or plasma albumin/globulin mass ratioon 82-58-4609Dxenbow/Globulin [Mass ratio]1.1 {ratio}0.7-1.7FNewark Hospitalerum or plasma alpha 1 globulin measurement by electrophoresis (mass/volume)on 67-64-6400Uwrjc 1 globulin Elph [Mass/Vol]0.3 g/dL0.0-0.4FNewark Hospitalerum or plasma alpha 2 globulin measurement by electrophoresis (mass/volume)on 94-32-9406Naldw 2 globulin Elph [Mass/Vol]0.9 g/dL0.4-1.0[facility] Hospitalerum or plasma anion gap determinationon 18-10-5307Vdzjs gap [Moles/Vol]12.1 mmol/LFNewark Hospitalerum or plasma beta globulin measurement by electrophoresis (mass/volume)on 44-32-7963Gxfz globulin Elph [Mass/Vol]1.1 g/dL0.7-1.3FNewark Hospitalerum or plasma gamma globulin measurement by electrophoresis (mass/volume)on 38-13-2473Gohkb globulin Elph [Mass/Vol]1.3 g/dL 0.4-1.8[facility] Hospitalerum or plasma immunoelectrophoresis interpretationon 49-84-0332Qxzodrwmkpktiy IEP [Interp]Comment.[facility] HospitalComment on above:No monoclonality detected.Urine protein/creatinine ratioon 55-37-1291Ydrjoez/Creatinine (U) [Ratio]1.06J.[facility]. [facility] HospitalUS Thyroid glandon 94-34[place] [address] Ultrasound Report Signed Patient: CLAUDIA ESTRELLA MR#: [id number] : 1950 Acct:[id number] Age/Sex: 73 / F ADM Date: 09/06/23 Loc: US Attending Dr: Sheyla Lvoe M.D. Ordering Physician: Sheyla Love M.D. Date of Service: 09/06/23 Procedure(s): US thyroid Accession Number(s): [id number] cc: JOHN PERDOMO D.O.; Sheyla Love M.D. [place] [address] Patient Name: CLAUDIA ESTRELLA MRN: [id number] date: 1950 Sex: F Assigned Patient Location: US Current Patient Location: US Accession/Order Number: [id number] Exam Date: 09/06/2023 15:00 Report Date: 09/09/2023 [...] Renee M.D. Signed By: 09/09/23419 DD/ TD/TT: Circulation Representative:TBHRadiology, Radiologist, - 09/09/2023 [place] [address] Ultrasound Report Signed Patient: CLAUDIA ESTRELLA MR#: [id number] : 1950 Acct:[id number] Age/Sex: 73 / F ADM Date: 09/06/23 Loc: US Attending Dr: Sheyla Love M.D. Ordering Physician: Sheyla Love M.D. Date of Service: 09/06/23 Procedure(s): US thyroid Accession Number(s): [id number] cc: JOHN PERDOMO D.O.; Sheyla Love M.D. The [place] [id number] Patient Name: CLAUDIA ESTRELLA MRN: [id number] date: 1950 Sex: F Assigned Patient Location: US Current Patient Location: US Accession/Order Number: [id number] Exam Date: 09/06/2023 15:00 Report Date: 09/09/2023 [...] Signed By: 09/09/23 0420 DD/ 0418 TD/TT: Circulation Representative: [facility] HealthcareRadiology Study observation (narrative)[facility] HealthcareUS Thyroid glandOrdered By: Radiologist Radiology on 60-43-1460[facility] Work Phone: bNPon 16-44-3280Ydmddxbkjlo peptide B (Bld) [Mass/Vol] 1458.0 pg/mLCritically high<=900.0Peoples HospitalComment on above: Performed By: #### LIPID, TSH, FT3 #### [facility] [address] [place] [address] Dr. Andrey Jimenez AUTO DIFFon 92-59-3823FXHD #0.1 103/ulNormal0.0-0.1The [facility] Hospital - WestComment on above:Performed By: #### VITAD, FETIBC, FERR #### [facility] [address] [place] [address] Dr. Andrey HargroveBasophils/100 WBC (Bld)0.7 %Normal0.2-2.0The [facility] Comment on above:Performed By: #### VITAD, FETIBC, FERR #### [facility] [address] [place] [address] Dr. Andrey Copeland #0.4 103/ulNormal0.0-0.7The [facility] Hospital - WestComment on above: Performed By: #### VITAD, FETIBC, FERR #### [facility] [address] [place] [address] Dr. Andrey Wilkinsonosinophils/100 WBC (Bld)4.6 %Normal0.9-7.0The [facility] Comment on above:Performed By: #### VITAD, FETIBC, FERR #### [facility] [address] [place] [address] Dr. Andrey Wilkinsonrythrocyte distribution width (RBC) [Ratio]13.7 %Vkfrcq34.0-15.0 The [facility] Hospital - WestComment on above:Performed By: #### VITAD, FETIBC, FERR #### [facility] [address] [place] [address] Dr. Andrey HargroveHematocrit (Bld) [Volume fraction]35.5 %Critically low36.0-48.0 The [facility] Hospital - WestComment on above:Performed By: #### VITAD, FETIBC, FERR #### [facility] [address] [place] [address] Dr. Andrey HargroveHemoglobin (Bld) [Mass/Vol]12.0 g/zHAruxkr42.0-16.0The [facility] - WestComment on above:Performed By: #### VITAD, FETIBC, FERR #### [facility] [address] [place] [address] Dr. Andrey Willard #0.02 10e3/ulNormal0.00-0.03The [facility] Hospital - WestComment on above:Performed By: #### VITAD, FETIBC, FERR #### [facility] [address] [place] [address] Dr. Andrey Willard %0.2 %Normal0.0-0.5The [facility] - WestComment on above: Performed By: #### VITAD, FETIBC, FERR #### [facility] [address] [place] [address] Dr. Andrey Jarrett #1.5 103/ulNormal1.2-3.8The [facility] - WestComment on above:Performed By: #### VITAD, FETIBC, FERR #### [facility] [address] [place] [address] Dr. Andrey Derashocytes/100 WBC (Bld)18.1 %Critically low20.5-60.0[facility] on above:Performed By: #### VITAD, FETIBC, FERR #### [facility] [address] [place] [address] Dr. Andrey ConnollyUAL DIFF REQNONormalThe [facility] Hospital - WestComment on above: Performed By: #### VITAD, FETIBC, FERR #### [facility] [address] [place] [address] Dr. Andrey Sevilla (RBC) [Entitic mass]29.3 tnPsabkc02.7-34.0The [facility] - WestComment on above:Performed By: #### VITAD, FETIBC, FERR #### [facility] [address] [place] [address] Dr. Andrey Coker (RBC) [Mass/Vol]33.8 g/zIDxclcw51.9-35.2The [facility] - WestComment on above:Performed By: #### VITAD, FETIBC, FERR #### [facility] [address] [place] [address] Dr. Andrey Chua (RBC) [Entitic vol]86.8 yNGjvgfu01.0-99.0The [facility] - WestComment on above:Performed By: #### VITAD, FETIBC, FERR #### [facility] [address] [place] [address] Dr. Andrey Magaña #0.7 103/ulNormal0.3-0.8The [facility] - WestComment on above:Performed By: #### VITAD, FETIBC, FERR #### [facility] [address] [place] [address] Dr. Andrey Hamiltonocytes/100 WBC (Bld)7.9 %Normal1.7-12.0The [facility] Comment on above:Performed By: #### VITAD, FETIBC, FERR #### [facility] [address] [place] [address] Dr. Andrey Hay #5.7 103/ulNormal1.4-6.5The [facility] - WestComment on above:Performed By: #### VITAD, FETIBC, FERR #### [facility] [address] [place] [address] Dr. Andrey Brionesutrophils/100 WBC (Bld)68.5 %Ippywc84.0-75.0The [facility] - WestComment on above:Performed By: #### VITAD, FETIBC, FERR #### [facility] [address] [place] [address] Dr. Andrey Melgozalet mean volume (Bld) [Entitic vol]10.4 fLNormal9.5-13.5The [facility] - WestComment on above:Performed By: #### VITAD, FETIBC, FERR #### [facility] [address] [place] [address] Dr. Andrey HargrovePLT204 103/[id number] [facility] - WestComment on above: Performed By: #### VITAD, FETIBC, FERR #### [facility] [address] [place] [address] Dr. Andrey HragroveRBC4.09 106/ulCritically low4.20-5.40[facility] WestComment on above:Performed By: #### VITAD, FETIBC, FERR #### [facility] [address] [place] [address] Dr. Andrey HargroveWBC8.3 103/ulNormal4.0-11.0The [facility] - WestComment on above: Performed By: #### VITSHAQ, FETIBC, FERR #### [facility] [address] [place] [address] Dr. Andrey HargrovePROF CHEM 8 (BAS METB)on 68-21-0957Huulg gap [Moles/Vol]11.1 mmol/LNormalThe [facility] WestComment on above:Performed By: #### LIPID, TSH, FT3 #### [facility] [address] [place] [address] Dr. Andrey HargroveCalcium [Mass/Vol]9.2 mg/dLNormal8.5-10.1The [facility] Comment on above:Performed By: #### LIPID, TSH, FT3 #### [facility] [address] [place] [address] Dr. Andrey HargroveChloride [Moles/Vol]102 mmol/IQrzztv12-247Gvk [facility] Comment on above:Performed By: #### LIPID, TSH, FT3 #### [facility] [address] [place] [address] Dr. Andrey HargroveCO2 [Moles/Vol]31.2 mmol/CZslssi65.0-32.0The [facility] Comment on above:Performed By: #### LIPID, TSH, FT3 #### [facility] [address] [place] [address] Dr. Andrey HargroveCreatinine [Mass/Vol]1.79 mg/dLCritically high0.55-1.02The [facility] - WestComment on above:Performed By: #### LIPID, TSH, FT3 #### [facility] [address] [address] [address] Andrey WilkinsonGFR-AF XUDLEKQM22 mL/min/1.14k5Shkzmeiyll low>=60The [facility] - WestComment on above:Performed By: #### LIPID, TSH, FT3 #### [facility] [address] [address] [address] Andrey WilkinsonGFR-NON AF NQNYQFPJ25 mL/min/1.96b7Jscgbahxlb low>=60The [facility] - WestComment on above:Performed By: #### LIPID, TSH, FT3 #### [facility] [address] [address] [address] Andrey HargroveGlucose [Mass/Vol]148 mg/dLCritically cxfm39-719Sjs [facility] WestComment on above:Performed By: #### LIPID, TSH, FT3 #### [facility] [address] [address] [address] Andrey HargrovePotassium [Moles/Vol]3.3 mmol/LCritically low3.5-5.1The [facility] - WestComment on above:Performed By: #### LIPID, TSH, FT3 #### [facility] [address] [address] [address] Andrey HargroveSodium [Moles/Vol]141 mmol/CLzubwh846-484Brp [facility] Comment on above:Performed By: #### LIPID, TSH, FT3 #### [facility] [address] [address] [address] Andrey HargroveUrea nitrogen [Mass/Vol]41.0 mg/dLCritically high7.0-18.0The [facility] WestComment on above:Performed By: #### LIPID, TSH, FT3 #### [facility] [address] [address] [address] Andrey HargroveUrea nitrogen/Creatinine [Mass ratio]22.9 mg/mgNormalThe [facility] - WestComment on above:Performed By: #### LIPID, TSH, FT3 #### [facility] [address] [address] [address] Andrey PettitH INTACTon 84-39-7554YTU, Sstskq59 pg/lTCpldyq63-60Kwq [facility] Centerment on above:Performed By: #### VITAD, FETIBC, FERR #### [facility] [address] [place], [place] [address] Dr. Andrey Suazo THYROIDon 77-50-0330LI THYROIDEXAMINATION: US THYROID HISTORY: Non-toxic multinodular goiter [...] Electronically authenticated by: RENETTA RENEE Date: 2022-08-24 16:[address] [place], [place] [address]FERRITINon 84-95-5054Iktredqm [Mass/Vol]114.0 ng/mLNormal 8.0-252.0The [facility] on above:Performed By: #### VITAD, FETIBC, FERR #### [facility] [address] [place], [place] [address] Dr. Andrey HargroveHEMOGRAM AND PLATELon 37-40-6189Qnenfotkbe (Bld) [Volume fraction]34.9 %Critically low36.0-48.0The [facility] Centerment on above: Performed By: #### VITAD, FETIBC, FERR #### [facility] [address] [place] [address] Dr. Andrey HargroveHemoglobin (Bld) [Mass/Vol]11.8 g/dLCritically low12.0-16.0The [facility] WestComment on above:Performed By: #### VITAD, FETIBC, FERR #### [facility] [address] [place] [address] Dr. Andrey Coker (RBC) [Entitic mass]28.6 oqApdhqz36.7-34.0The [facility] - WestComment on above:Performed By: #### VITAD, FETIBC, FERR #### [facility] [address] [place] [address] Dr. Andrey Coker (RBC) [Mass/Vol]33.8 g/dJVhwtnl42.9-35.2The [facility] WestComment on above:Performed By: #### VITAD, FETIBC, FERR #### [facility] [address] [place] [address] Dr. Andrey Coker (RBC) [Entitic vol]84.7 uAWwhjqk37.0-99.0The [facility] WestComtr[facility] on above:Performed By: #### VITAD, FETIBC, FERR #### [facility] [address] [place] [address] Dr. Andrey HargrovePLT215 103/chRwkury780-218Gwz [facility] WestComtr[facility] on above: Performed By: #### VITAD, FETIBC, FERR #### [facility] [address] [place] [address] Dr. Andrey HargroveRBC4.12 106/ulCritically low4.20-5.40The [facility] - WestComment on above:Performed By: #### VITAD, FETIBC, FERR #### [facility] [address] [place] [address] Dr. Andrey HargroveWBC9.2 103/ulNormal4.0-11.0The [facility] - WestComment on above: Performed By: #### VITAD, FETIBC, FERR #### [facility] [address] [place] [address] Dr. Andrey Mason AND TIBCon 08-23-2022% COQFJRZTIW77.4 %NormalThe [facility] - WestComment on above:Performed By: #### VITAD, FETIBC, FERR #### [facility] [address] [place] [address] Dr. Andrey Mason [Mass/Vol]44.0 ug/dLCritically low50.0-170.0The [facility] WestComment on above:Performed By: #### VITAD, FETIBC, FERR #### [facility] [address] [place] [address] Dr. Andrey HargroveTIBC QHMGYZ303.0 ug/qGGwqkmi207.0-450.0[facility] Comment on above:Performed By: #### VITAD, FETIBC, FERR #### [facility] [address] [place] [address] Dr. Andrey HargroveMAGNESIUMon 96-30-7772Yqimuggww [Mass/Vol]2.1 mg/dLNormal1.8-2.4 The [facility] - WestComment on above:Performed By: #### LIPID, TSH, FT3 #### [facility] [address] [place] [address] Dr. Andrey HargroveRENWILBERT FUNCTION PANELon 19-64-2506Hvvsfhj [Mass/Vol]3.3 g/dL Critically low3.4-5.0The [facility] - WestComment on above:Performed By: #### LIPID, TSH, FT3 #### [facility] [address] [place] [address] Dr. Andrey HargroveCalcium [Mass/Vol]9.4 mg/dLNormal8.5-10.1[facility] Comment on above:Performed By: #### LIPID, TSH, FT3 #### [facility] [address] [place] [address] Dr. Andrey HargroveChloride [Moles/Vol]103 mmol/GUzdkln20-718WyePeoples Hospital Comment on above:Performed By: #### LIPID, TSH, FT3 #### [facility] [address] [place] [address] Dr. Andrey HargroveCO2 [Moles/Vol]26.8 mmol/CCbuhkd69.0-32.0The [facility] Comment on above:Performed By: #### LIPID, TSH, FT3 #### [facility] [address] [place] [address] Dr. Andrey HargroveCreatinine [Mass/Vol]1.94 mg/dLCritically high0.55-1.02The [facility] WestComment on above:Performed By: #### LIPID, TSH, FT3 #### [facility] [address] [place] [address] Dr. Andrey WilkinsonGFR-AF QSWFKKWA39 mL/min/1.52q6Axgbqfufjm low>=60The [facility] WestComment on above:Performed By: #### LIPID, TSH, FT3 #### [facility] [address] [place] [address] Dr. Andrey WilkinsonGFR-NON AF QRNNEXEG42 mL/min/1.20t7Umqrxnxhzd low>=60The [facility] WestComment on above:Performed By: #### LIPID, TSH, FT3 #### [facility] [address] [place] [address] Dr. Andrey HargroveGlucose [Mass/Vol]166 mg/dLCritically ewau07-897OytMercy Health – The Jewish Hospitalment on above:Performed By: #### LIPID, TSH, FT3 #### [facility] [address] [place] [address] Dr. Andrey HargrovePhosphate [Mass/Vol]4.6 mg/dLNormal2.6-4.7The [facility] Comment on above:Performed By: #### LIPID, TSH, FT3 #### [facility] [address] [place] [address] Dr. Andrey HargrovePotassium [Moles/Vol]4.3 mmol/LNormal3.5-5.1[facility] Comment on above:Performed By: #### LIPID, TSH, FT3 #### [facility] [address] [place] [address] Dr. Andrey Toneyum [Moles/Vol]137 mmol/XYqjisl775-399OfgPeoples Hospital Comment on above:Performed By: #### LIPID, TSH, FT3 #### [facility] [address] [place] [address] Dr. Andrey Mccarty nitrogen [Mass/Vol]39.0 mg/dLCritically high7.0-18.0[facility]oples HospitalComment on above:Performed By: #### LIPID, TSH, FT3 #### [facility] [address] [place] [address] Dr. Andrey Link RANDOM W/MICROSCOPICon 00-23-7556VYXMCKRCTBDU SEENNormalNONE SEENPeoples HospitalComment on above:Performed By: #### VITAD, FETIBC, FERR #### [facility] [address] [place] [address] Dr. Andrey Godfrey Ql (U)NegativeNormalNEGATIVEThe [facility] Comment on above:Performed By: #### VITAD, FETIBC, FERR #### [facility] [address] [place] [address] Dr. Andrey Rodriguez SEENNormalNONE SEENPeoples HospitalComment on above:Performed By: #### VITAD, FETIBC, FERR #### [facility] [address] [place] [address] Dr. Andrey Lau (U)CLEARNormalCLEARThe [facility] - WestComment on above: Performed By: #### VITAD, FETIBC, FERR #### [facility] [address] [place] [address] Dr. Andrey Cervantes (U)LT. YELLOWNormalYELLOWPeoples HospitalComment on above:Performed By: #### VITAD, FETIBC, FERR #### [facility] [address] [place] [address] Dr. Andrey Mckenzie LM Nom (Urine sed)NONE SEENNormalNONE SEENPeoples HospitalComment on above:Performed By: #### VITAD, FETIBC, FERR #### [facility] [address] [address] [address] Andrey Castlethelial cells LM Ql (Urine sed)RARENormalNONE SEEN /RAREThe [facility] - WestComment on above:Performed By: #### VITAD, FETIBC, FERR #### [facility] [address] [address] [address] Andrey HargroveGlucose Ql (U)NegativeNormalNEGATIVEJoint Township District Memorial [facility] HospitalComment on above:Performed By: #### VITAD, FETIBC, FERR #### [facility] [address] [address] [address] Andrey HargroveHemoglobin Ql (U)NegativeNormalNEGATIVEDayton Children'S Hospital on above:Performed By: #### VITAD, FETIBC, FERR #### [facility] [address] [place] [address] Dr. Andrey HargroveKetones Ql (U)NegativeNormalNEGATIVEPeoples HospitalComment on above:Performed By: #### VITAD, FETIBC, FERR #### [facility] [address] [address] [address] Andrey HargroveLEUKOCYTESNegativeNormalNEGATIVEPeoples HospitalComment on above:Performed By: #### VITAD, FETIBC, FERR #### [facility] [address] [address] [address] Andrey HargroveMUCOUSNONE SEENNormalNONE SEENPeoples HospitalComment on above:Performed By: #### VITAD, FETIBC, FERR #### [facility] [address] [address] [address] Andrey HargroveNitrite Ql (U)NegativeNormalNEGATIVEPeoples HospitalComment on above:Performed By: #### VITAD, FETIBC, FERR #### [facility] [address] [place] [address] Dr. Andrey HargrovepH (U)6.5 [pH]Normal5-9The [facility] - WestComment on above: Performed By: #### VITAD, FETIBC, FERR #### [facility] [address] [address] [address] Andrey HargroveRBCNONE SEENAbnormal0-2The [facility] WestComment on above: Performed By: #### VITAD, FETIBC, FERR #### [facility] [address] [place] [address] Dr. Andrey HargroveSPEC GRAVITY1.895Uijmsn9.005-<=1.025The Hammond HospitalComment on above:Performed By: #### VITAD, FETIBC, FERR #### [facility] [address] [place] [address] Dr. Andrey HargroveUA OBIPWLE57 mg/dlAbnormalNEGATIVE/ TRACEThe [facility] Comment on above:Performed By: #### VITAD, FETIBC, FERR #### [facility] [address] [place] [address] Dr. Andrey HargroveUrobilinogen Qn (U)0.2 {Kelly'U}/dLNormal0.2 - 1.0The [facility] - WestComment on above:Performed By: #### VITAD, FETIBC, FERR #### [facility] [address] [place] [address] Dr. Andrey HargroveWBCNONE SEENNormalNONE SEENThe [facility] - WestComment on above: Performed By: #### VITAD, FETIBC, FERR #### [facility] [address] [place] [address] Dr. Andrey HargroveURIC ACID SERUMon 07-64-0247Vfsqp [Mass/Vol]5.8 mg/dLNormal 2.6-6.0The [facility] - WestComment on above:Performed By: #### LIPID, TSH, FT3 #### [facility] [address] [place] [address] Dr. Andrey HargroveVITAMIN D 25 OHon 68-46-6674ROI D 25-OH69.0 ng/mLNormalThe [facility] WestComment on above:Performed By: #### VITAD, FETIBC, FERR #### [facility] [address] [place] [address] Dr. Andrey Blake RANGESSEKaterin Dayton Children's HospitalComment on above: Result Comment: <20 ng/mL Vit D deficient 20 - <30 ng/mL Vit D insufficient 30 - 100 ng/mL Vit D sufficient >100 ng/mL Potential ToxicityPerformed By: #### VITAD, FETIBC, FERR #### [facility] [address] [address] [address] Balderas ChangECHOCARDIO M/2D COMPLETEon 21-85-2040XREDBWZLNL M/2D COMPLETE Patient: CLAUDIA ESTRELLA Exam Date: 06/13/2022 : 1950 Gender:F Ordering : DR KARTHIK FISH M.D. Admission #: [id number] Family : Order #: [id number] CLICK HERE TO VIEW EXAM ECHOCARDIOGRAM REPORT [...] by: Karthik Fish M.D. on 06/14/2022 at 17:50Corey HospitalBNPon 76-49-2344Dnqcyuywaky peptide B (Bld) [Mass/Vol]4197.0 pg/mL Critically high<=900.0[facility]oples HospitalComment on above:Performed By: #### LIPID, TSH, FT3 #### [facility] [address] [address] [address] Andrey HargrovePROF CHEM 8 (BAS METB)on 88-43-7276Lqmsz gap [Moles/Vol]10.4 mmol/LNormalThe [facility] - WestComment on above:Performed By: #### VITAD, FETIBC, FERR #### [facility] [address] [place] [address] Dr. Andrey HargroveCalcium [Mass/Vol]9.4 mg/dLNormal8.5-10.1The [facility] Comment on above:Performed By: #### VITAD, FETIBC, FERR #### [facility] [address] [address] [address] Andrey HargroveChloride [Moles/Vol]99 mmol/VAhtjfm07-326Vro [facility] Comment on above:Performed By: #### VITAD, FETIBC, FERR #### [facility] [address] [place] [address] Dr. Andrey HargroveCO2 [Moles/Vol]33.8 mmol/LCritically high21.0-32.0The [facility] WestComment on above:Performed By: #### VITAD, FETIBC, FERR #### [facility] [address] [place] [address] Dr. Andrey HargroveCreatinine [Mass/Vol]2.09 mg/dLCritically high0.55-1.02The [facility] WestComment on above:Performed By: #### VITAD, FETIBC, FERR #### [facility] [address] [place] [address] Dr. Balderas ChangEGFR-AF JRVWFJKS02 mL/min/1.79k0Vouimcpppg low>=60The [facility] - WestComment on above:Performed By: #### VITAD, FETIBC, FERR #### [facility] [address] [address] [address] Andrey WilkinsonGFR-NON AF YZPUASNI49 mL/min/1.48g9Fgtxfgizwo low>=60The [facility] WestComment on above:Performed By: #### VITAD, FETIBC, FERR #### [facility] [address] [address] [address] Andrey HargroveGlucose [Mass/Vol]75 mg/vXQfkvve44-131Put [facility] Comment on above:Performed By: #### VITAD, FETIBC, FERR #### [facility] [address] [place] [address] Dr. Andrey HargrovePotassium [Moles/Vol]3.2 mmol/LCritically low3.5-5.1The [facility] - WestComment on above:Performed By: #### VITAD, FETIBC, FERR #### [facility] [address] [place] [address] Dr. Andrey HargroveSodium [Moles/Vol]140 mmol/PChoeqz748-110Iuh [facility] Comment on above:Performed By: #### VITAD, FETIBC, FERR #### [facility] [address] [place] [address] Dr. Andrey HargroveUrea nitrogen [Mass/Vol]61.0 mg/dLCritically high7.0-18.0The [facility] WestComment on above:Performed By: #### VITAD, FETIBC, FERR #### [facility] [address] [place] [address] Dr. Andrey Mccarty nitrogen/Creatinine [Mass ratio]29.2 mg/mgNormalThe [facility] - WestComment on above:Performed By: #### VITAD, FETIBC, FERR #### [facility] [address] [place] [address] Dr. Andrey Monge 07-17-9200Jtujovsgkic peptide B (Bld) [Mass/Vol]9365.0 pg/mLCritically high<=900.0The [facility] WestComment on above:Performed By: #### VITAD, FETIBC, FERR #### [facility] [address] [place] [address] Dr. Andrey Kimble CHEM 8 (BAS METB)on 19-70-5550Evfea gap [Moles/Vol]10.7 mmol/LNormalThe [facility] - WestComment on above:Performed By: #### VITAD, FETIBC, FERR #### [facility] [address] [place] [address] Dr. Andrey HargroveCalcium [Mass/Vol]9.1 mg/dLNormal8.5-10.1The [facility] Comment on above:Performed By: #### VITAD, FETIBC, FERR #### [facility] [address] [place] [address] Dr. Andrey HargroveChloride [Moles/Vol]98 mmol/HPservn44-852Vor [facility] Comment on above:Performed By: #### VITAD, FETIBC, FERR #### [facility] [address] [place] [address] Dr. Andrey HargroveCO2 [Moles/Vol]29.4 mmol/MVddtco37.0-32.0The [facility] Comment on above:Performed By: #### VITAD, FETIBC, FERR #### [facility] [address] [place] [address] Dr. Andrey HargroveCreatinine [Mass/Vol]2.44 mg/dLCritically high0.55-1.02The [facility] - WestComment on above:Performed By: #### VITAD, FETIBC, FERR #### [facility] [address] [place] [address] Dr. Andrey WilkinsonGFR-AF KTMXGBLE91 mL/min/1.90q6Thevlvakvj low>=60The [facility] - WestComment on above:Performed By: #### VITAD, FETIBC, FERR #### [facility] [address] [place] [address] Dr. Andrey WilkinsonGFR-NON AF HRLIVIPC45 mL/min/1.00l6Sacapfykmd low>=60The [facility] - WestComment on above:Performed By: #### VITAD, FETIBC, FERR #### [facility] [address] [address] [address] Andrey HargroveGlucose [Mass/Vol]135 mg/dLCritically xhzf64-067Cek [facility] WestComment on above:Performed By: #### VITAD, FETIBC, FERR #### [facility] [address] [address] [address] Andrey HargrovePotassium [Moles/Vol]4.1 mmol/LNormal3.5-5.1The [facility] Comment on above:Performed By: #### VITAD, FETIBC, FERR #### [facility] [address] [place] [address] Dr. Andrey HargroveSodium [Moles/Vol]134 mmol/LCritically uws555-956Zfj [facility] - WestComment on above:Performed By: #### VITAD, FETIBC, FERR #### [facility] [address] [address] [address] Andrey HargroveUrea nitrogen [Mass/Vol]81.0 mg/dLCritically high7.0-18.0The [facility] - WestComment on above:Performed By: #### VITAD, FETIBC, FERR #### [facility] [address] [place] [address] Dr. Andrey HargroveUrea nitrogen/Creatinine [Mass ratio]33.2 mg/mgNormalThe [facility] WestComment on above:Performed By: #### VITAD, FETIBC, FERR #### [facility] [address] [place] [address] Dr. Andrey HargroveXR ELBOW RT MIN 3 VIEWSon 69-67-0889NC ELBOW RT MIN 3 VIEWSEXAM: XR ELBOW [...] Electronically authenticated by: BETSY LAZARO Date: 2022-06-01 17:24Corey HospitalRENAL FUNCTION PANELon 44-09-2790Ijquxje [Mass/Vol]3.4 g/dL Normal3.4-5.0[facility] HospitalComment on above:Performed By: #### LIPID, TSH, FT3 #### [facility] [address] [place] [address] Dr. Andrey HargroveCalcium [Mass/Vol]9.1 mg/dLNormal8.5-10.1[facility] Comment on above:Performed By: #### LIPID, TSH, FT3 #### [facility] [address] [address] [address] Andrey HargroveChloride [Moles/Vol]99 mmol/BPdwrrw90-789GdnPeoples Hospital Comment on above:Performed By: #### LIPID, TSH, FT3 #### [facility] [address] [address] [address] Andrey HargroveCO2 [Moles/Vol]30.9 mmol/KYnxgvw70.0-32.0[facility] Comment on above:Performed By: #### LIPID, TSH, FT3 #### [facility] [address] [address] [address] Andrey HargroveCreatinine [Mass/Vol]2.24 mg/dLCritically high0.55-1.02[facility]oples HospitalComment on above:Performed By: #### LIPID, TSH, FT3 #### [facility] [address] [address] [address] Andrey WilkinsonGFR-AF PDDERGJE45 mL/min/1.40d5Jxpxivzogt low>=60The [facility] - WestComment on above:Performed By: #### LIPID, TSH, FT3 #### [facility] [address] [address] [address] Andrey WilkinsonGFR-NON AF SXHJQRXN90 mL/min/1.49o6Nrqzaskoyw low>=60The [facility] - WestComment on above:Performed By: #### LIPID, TSH, FT3 #### [facility] [address] [address] [address] Andrey HargroveGlucose [Mass/Vol]94 mg/jXLaioqq83-018JbtPeoples Hospital Comment on above:Performed By: #### LIPID, TSH, FT3 #### [facility] [address] [place] [address] Dr. Andrey HargrovePhosphate [Mass/Vol]4.7 mg/dLNormal2.6-4.7The [facility] Comment on above:Performed By: #### LIPID, TSH, FT3 #### [facility] [address] [address] [address] Andrey HargrovePotassium [Moles/Vol]3.5 mmol/LNormal3.5-5.1[facility] Comment on above:Performed By: #### LIPID, TSH, FT3 #### [facility] [address] [address] [address] Andrey HargroveSodium [Moles/Vol]136 mmol/XBttepo743-981Tvx [facility] Comment on above:Performed By: #### LIPID, TSH, FT3 #### [facility] [address] [address] [address] Andrey HargroveUrea nitrogen [Mass/Vol]72.0 mg/dLCritically high7.0-18.0The [facility] WestComment on above:Performed By: #### LIPID, TSH, FT3 #### [facility] [address] [address] [address] Andrey PettitH INTACTon 95-87-6055IVM, Zpcrmh57 pg/gVCjlois55-53Vtg [facility] WestComment on above:Performed By: #### LIPID, TSH, FT3 #### [facility] [address] [place] [address] Dr. Andrey HargroveFERRITINon 40-75-4871Fkmkfqgj [Mass/Vol]190.0 ng/mLNormal 8.0-252.0The [facility] - WestComment on above:Performed By: #### LIPID, TSH, FT3 #### [facility] [address] [place] [address] Dr. Andrey HargroveFRSAMSON T3on 89-59-6325QDQL T31.96 pg/mlLCritically low2.18-3.98The [facility] Centerment on above:Performed By: #### LIPID, TSH, FT3 #### [facility] [address] [place] [address] Dr. Andrey Joaquin T4on 99-94-4100Nrsz T4 [Mass/Vol]1.33 ng/dLNormal0.76-1.46 The [facility] WestComment on above:Performed By: #### LIPID, TSH, FT3 #### [facility] [address] [place] [address] Dr. Andrey HargroveHEMOGRAM AND PLATELon 21-70-6519Owseaujiiw (Bld) [Volume fraction]30.6 %Critically low36.0-48.0The [facility] on above: Performed By: #### VITAD, FETIBC, FERR #### [facility] [address] [place] [address] Dr. Andrey HargroveHemoglobin (Bld) [Mass/Vol]10.4 g/dLCritically low12.0-16.0The [facility] on above:Performed By: #### VITAD, FETIBC, FERR #### [facility] [address] [place] [address] Dr. Andrey HargroveH (RBC) [Entitic mass]28.6 woFzmnyj76.7-34.0The [facility] Centerment on above:Performed By: #### VITAD, FETIBC, FERR #### [facility] [address] [place] [address] Dr. Andrey Coker (RBC) [Mass/Vol]34.0 g/zSDhixqp05.9-35.2The Hammond HospitalComment on above:Performed By: #### VITAD, FETIBC, FERR #### [facility] [address] [place] [address] Dr. Andrey Coker (RBC) [Entitic vol]84.1 iFZphkss15.0-99.0The Hammond HospitalComment on above:Performed By: #### VITAD, FETIBC, FERR #### [facility] [address] [place] [address] Dr. Andrey HargrovePLT179 103/fyKjvbgy526-470Ttu [facility] WestComment on above: Performed By: #### VITAD, FETIBC, FERR #### [facility] [address] [place] [address] Dr. Andrey HargroveRBC3.64 106/ulCritically low4.20-5.40The [facility] WestComment on above:Performed By: #### VITAD, FETIBC, FERR #### [facility] [address] [place] [address] Dr. Andrey HargroveWBC9.5 103/ulNormal4.0-11.0The [facility] - WestComment on above: Performed By: #### VITAD, FETIBC, FERR #### [facility] [address] [place] [address] Dr. Andrey Mason AND TIBCon 05-23-2022% PQPDKVIQRT18.9 %NormalThe [facility] - WestComment on above:Performed By: #### LIPID, TSH, FT3 #### [facility] [address] [place] [address] Dr. Andrey Mason [Mass/Vol]44.0 ug/dLCritically low50.0-170.0The [facility] WestComment on above:Performed By: #### LIPID, TSH, FT3 #### [facility] [address] [address] [address] Andrey HargroveTIBC LFFNQO659.0 ug/fVAozjav006.0-450.0[facility] Comment on above:Performed By: #### LIPID, TSH, FT3 #### [facility] [address] [place] [address] Dr. Andrey RomoID PROFILEon 37-59-7203TCWM-HDL RATIO NORMSEE [facility] Children's HospitalComment on above:Result Comment: 3.3 - 4.4 LOW RISK 4.4 - 7.1 AVERAGE RISK 7.1 - 11.0 MODERATE RISK >11.0 HIGH RISKPerformed By: #### LIPID, TSH, FT3 #### [facility] [address] [place] [address] Dr. Andrey Anguloesterol [Mass/Vol]129 mg/dLNormal<=200The [facility] Comment on above:Performed By: #### LIPID, TSH, FT3 #### [facility] [address] [place] [address] Dr. Andrey Anguloesterol in HDL [Mass/Vol]55 mg/dCUjfpup13-11QbjPeoples HospitalComment on above:Performed By: #### LIPID, TSH, FT3 #### [facility] [address] [place] [address] Dr. Andrey HargroveCholesterol in LDL [Mass/Vol]59.6 mg/dLCorey HospitalComment on above:Performed By: #### LIPID, TSH, FT3 #### [facility] [address] [place] [address] Dr. Andrey Smith.total/Cholesterol in HDL [Mass ratio]2.3 {ratio} NormalPeoples HospitalComment on above:Performed By: #### LIPID, TSH, FT3 #### [facility] [address] [place] [address] Dr. Andrey Hughes NORMAL> or = 60 mg/dl - LOW CARDIOVASCULAR RISK <40 mg/dl - HIGH CARDIOVASCULAR RISKCorey HospitalComment on above:Performed By: #### LIPID, TSH, FT3 #### [facility] [address] [address] [address] Andrey Powers CALC NORMALSEE BELOWCorey HospitalComment on above:Result Comment: <100 mg/dl OPTIMAL 100 - 129 mg/dl NEAR OR ABOVE OPTIMAL 130 - 159 mg/dl BORDERLINE HIGH 160 - 189 mg/dl HIGH >190 mg/dl VERY HIGH Performed By: #### LIPID, TSH, FT3 #### [facility] [address] [address] [address] Andrey HargroveTriglyceride [Mass/Vol]72 mg/dLNormal<=150The [facility] Comment on above:Performed By: #### LIPID, TSH, FT3 #### [facility] [address] [place] [address] Dr. Andrey HargroveVLDL CALC14.4 mg/dLCorey HospitalComment on above: Performed By: #### LIPID, TSH, FT3 #### [facility] [address] [place] [address] Dr. Andrey HargroveMAGNESIUMon 98-52-4217Xtwnegcaq [Mass/Vol]2.2 mg/dLNormal1.8-2.4 The [facility] WestComment on above:Performed By: #### LIPID, TSH, FT3 #### [facility] [address] [place] [address] Dr. Andrey HargroveRENAL FUNCTION PANELon 12-23-6953Lilhpgn [Mass/Vol]3.5 g/dLNormal 3.4-5.0Peoples HospitalComment on above:Performed By: #### LIPID, TSH, FT3 #### [facility] [address] [place] [address] Dr. Andrey HargroveCalcium [Mass/Vol]10.0 mg/dLNormal8.5-10.1[facility] Comment on above:Performed By: #### LIPID, TSH, FT3 #### [facility] [address] [place] [address] Dr. Andrey HargroveChloride [Moles/Vol]98 mmol/EOqksow24-057Nqy [facility] Comment on above:Performed By: #### LIPID, TSH, FT3 #### [facility] [address] [address] [address] Andrey HargroveCO2 [Moles/Vol]34.3 mmol/LCritically high21.0-32.0The [facility] WestComment on above:Performed By: #### LIPID, TSH, FT3 #### [facility] [address] [place] [address] Dr. Andrey HargroveCreatinine [Mass/Vol]2.24 mg/dLCritically high0.55-1.02The [facility] WestComment on above:Performed By: #### LIPID, TSH, FT3 #### [facility] [address] [place] [address] Dr. Andrey WilkinsonGFR-AF HHQEHAKG50 mL/min/1.13m0Eskkqiyhhs low>=60The [facility] WestComment on above:Performed By: #### LIPID, TSH, FT3 #### [facility] [address] [place] [address] Dr. Andrey WilkinsonGFR-NON AF PLUXWXFT22 mL/min/1.10g3Ktupoexzun low>=60The [facility] WestComment on above:Performed By: #### LIPID, TSH, FT3 #### [facility] [address] [place] [address] Dr. Andrey HargroveGlucose [Mass/Vol]123 mg/dLCritically mjlv44-948Htn [facility] WestComment on above:Performed By: #### LIPID, TSH, FT3 #### [facility] [address] [place] [address] Dr. Andrey HargrovePhosphate [Mass/Vol]5.2 mg/dLCritically high2.6-4.7The [facility] WestComment on above:Performed By: #### LIPID, TSH, FT3 #### [facility] [address] [place] [address] Dr. Andrey HargrovePotassium [Moles/Vol]3.0 mmol/LCritically low3.5-5.1The [facility] WestComment on above:Performed By: #### LIPID, TSH, FT3 #### [facility] [address] [address] [address] Andrey Toneyum [Moles/Vol]137 mmol/OKtfzdx231-208ZzxPe[facility] Hospital Comment on above:Performed By: #### LIPID, TSH, FT3 #### [facility] [address] [place] [address] Dr. Andrey Mccarty nitrogen [Mass/Vol]80.0 mg/dLCritically high7.0-18.0The [facility] WestComment on above:Performed By: #### LIPID, TSH, FT3 #### [facility] [address] [place] [address] Dr. Andrey Hernandez 27-94-7979FUC4.652 uIU/mLCritically high0.358-3.740The [facility] WestComment on above:Performed By: #### LIPID, TSH, FT3 #### [facility] [address] [place] [address] Dr. Andrey Link RANDOM W/MICROSCOPICon 45-72-5770AXYZKBTAOWQP SEENNormalNONE SEENPeoples HospitalComment on above:Performed By: #### VITAD, FETIBC, FERR #### [facility] [address] [place] [address] Dr. Andrey Godfrey Ql (U)NegativeNormalNEGATIVEPeoples Hospital Comment on above:Performed By: #### VITAD, FETIBC, FERR #### [facility] [address] [place] [address] Dr. Andrey KenNONE SEENNormalNONE SEENPeoples HospitalComment on above:Performed By: #### VITAD, FETIBC, FERR #### [facility] [address] [place] [address] Dr. Andrey Lau (U)CLEARNormalCLEARThe [facility] - WestComment on above: Performed By: #### VITAD, FETIBC, FERR #### [facility] [address] [place] [address] Dr. Yilan ChangColor (U)LT. YELLOWNormalYELLOWPeoples HospitalComment on above:Performed By: #### VITAD, FETIBC, FERR #### [facility] [address] [address] [address] Andrey HargroveCrystals LM Nom (Urine sed)NONE SEENNormalNONE SEENPeoples HospitalComment on above:Performed By: #### VITAD, FETIBC, FERR #### [facility] [address] [address] [address] Andrey Wilkinsonpithelial cells LM Ql (Urine sed)FEWAbnormalNONE SEEN /RAREPeoples HospitalComment on above:Performed By: #### VITAD, FETIBC, FERR #### [facility] [address] [place] [address] Dr. Andrey HargroveGlucose Ql (U)NegativeNormalNEGATIVEPeoples HospitalComment on above:Performed By: #### VITAD, FETIBC, FERR #### [facility] [address] [place] [address] Dr. Andrey HargroveHemoglobin Ql (U)TRACE-INTACTAbnormalNEGATIVEPeoples HospitalComment on above:Performed By: #### VITAD, FETIBC, FERR #### [facility] [address] [place] [address] Dr. Andrey HargroveKetones Ql (U)NegativeNormalNEGATIVEPeoples HospitalComment on above:Performed By: #### VITAD, FETIBC, FERR #### [facility] [address] [place] [address] Dr. Andrey HargroveLEUKOCYTESSMALLAbnormalNEGATIVEPeoples HospitalComment on above:Performed By: #### VITAD, FETIBC, FERR #### [facility] [address] [place] [address] Dr. Andrey HargroveMUCOUSNONE SEENNormalNONE SEENPeoples HospitalComment on above:Performed By: #### VITAD, FETIBC, FERR #### [facility] [address] [place] [address] Dr. Andrey Bernal Ql (U)NegativeNormalNEGATIVEThe [facility] WestComment on above:Performed By: #### VITAD, FETIBC, FERR #### [facility] [address] [place] [address] Dr. Andrey HargrovepH (U)5.5 [pH]Normal5-9The [facility] WestComment on above: Performed By: #### VITAD, FETIBC, FERR #### [facility] [address] [place] [address] Dr. Andrey HargroveYrygfVLX8-0Pzbfcj7-7Rip [facility] WestComment on above:Performed By: #### VITSHAQ, FETIBC, FERR #### [facility] [address] [place] [address] Dr. Andrey HargroveSPEC GRAVITY1.543Fmzgmd3.005-<=1.025The [facility] WestComment on above:Performed By: #### VITAD, FETIBC, FERR #### [facility] [address] [place] [address] Dr. Andrey Link PROTEINTRACENormalNEGATIVE/ TRACEThe [facility] - WestComment on above:Performed By: #### VITSHAQ, FETIBC, FERR #### [facility] [address] [place] [address] Dr. Andrey Mercadobilino Qn (U)0.2 {Kelly'U}/dLNormal0.2 - 1.0The [facility] WestComment on above:Performed By: #### VITAD, FETIBC, FERR #### [facility] [address] [place] [address] Dr. Andrey HargroveWBC0-2AbnormalNONE SEENThe [facility] WestComment on above: Performed By: #### VITAD, FETIBC, FERR #### [facility] [address] [place] [address] Dr. Andrey HargroveURIC ACID SERUMon 89-22-3062Ntprl [Mass/Vol]7.4 mg/dLCritically high2.6-6.0The [facility] WestComment on above:Performed By: #### LIPID, TSH, FT3 #### [facility] [address] [place] [address] Dr. Andrey Sanchez T PROTEIN CREAT RATIOon 31-56-2610Dcbineu (U) [Mass/Vol] 39.9 mg/dLCritically high<=12.0[facility] HospitalComment on above:Performed By: #### URTPCR #### [facility] [address] [place] [address] Dr. Andrey Fox PROT CREAT RAT0.64NoDayton Children's HospitalComment on above: Performed By: #### URTPCR #### [facility] [address] [place] [address] Dr. Andrey Sanchez CREAT62.30 mg/gLTtmles70.00-300.00[facility] Comment on above:Performed By: #### URTPCR #### [facility] [address] [place] [address] Dr. Andrey HargroveVITAMIN D 25 OHon 09-24-1162FXC D 25-OH90.7 ng/mLNormalPeoples HospitalComment on above:Performed By: #### LIPID, TSH, FT3 #### [facility] [address] [place] [address] Dr. Andrey Blake RANGESSEE BELOWCorey HospitalComment on above: Result Comment: <20 ng/mL Vit D deficient 20 - <30 ng/mL Vit D insufficient 30 - 100 ng/mL Vit D sufficient >100 ng/mL Potential ToxicityPerformed By: #### LIPID, TSH, FT3 #### [facility] [address] [place] [address] Dr. Andrey HargroveMAGNESIUMon 86-85-7204Djpvwtxfq [Mass/Vol]2.1 mg/dLNormal1.8-2.4 [facility] HospitalComtrinity health [facility] on above:Performed By: #### LIPID, TSH, FT3 #### [facility] [address] [place] [address] Dr. Andrey HargrovePROF CHEM 8 (BAS METB)on 65-71-5374Ngzjy gap [Moles/Vol]12.0 mmol/LNormalThe [facility] WestComment on above:Performed By: #### LIPID, TSH, FT3 #### [facility] [address] [address] [address] Andrey HargroveCalcium [Mass/Vol]9.0 mg/dLNormal8.5-10.1The [facility] Comment on above:Performed By: #### LIPID, TSH, FT3 #### [facility] [address] [address] [address] Andrey HargroveChloride [Moles/Vol]97 mmol/LCritically pmd00-386Szi [facility] WestComment on above:Performed By: #### LIPID, TSH, FT3 #### [facility] [address] [address] [address] Andrey HargroveCO2 [Moles/Vol]30.4 mmol/HYommkj69.0-32.0The [facility] Comment on above:Performed By: #### LIPID, TSH, FT3 #### [facility] [address] [address] [address] Andrey HargroveCreatinine [Mass/Vol]2.28 mg/dLCritically high0.55-1.02The [facility] WestComment on above:Performed By: #### LIPID, TSH, FT3 #### [facility] [address] [address] [address] Andrey WilkinsonGFR-AF CUCELWDN65 mL/min/1.72f5Spenfziecp low>=60The [facility] - WestComment on above:Performed By: #### LIPID, TSH, FT3 #### [facility] [address] [address] [address] Andrey WilkinsonGFR-NON AF ZAYNKOQQ17 mL/min/1.22b9Rcdjrmriql low>=60The [facility] WestComment on above:Performed By: #### LIPID, TSH, FT3 #### [facility] [address] [address] [address] Andrey HargroveGlucose [Mass/Vol]190 mg/dLCritically fjzg64-836Wlr [facility] WestComment on above:Performed By: #### LIPID, TSH, FT3 #### [facility] [address] [address] [address] Andrey HargrovePotassium [Moles/Vol]3.4 mmol/LCritically low3.5-5.1The [facility] - WestComment on above:Performed By: #### LIPID, TSH, FT3 #### [facility] [address] [address] [address] Andrey HargroveSodium [Moles/Vol]136 mmol/JGgburj974-830Enl [facility] Comment on above:Performed By: #### LIPID, TSH, FT3 #### [facility] [address] [address] [address] Andrey HargroveUrea nitrogen [Mass/Vol]73.0 mg/dLCritically high7.0-18.0The [facility] WestComment on above:Performed By: #### LIPID, TSH, FT3 #### [facility] [address] [address] [address] Andrey Mccarty nitrogen/Creatinine [Mass ratio]32.0 mg/mgNoDayton Children's HospitalComment on above:Performed By: #### LIPID, TSH, FT3 #### [facility] [address] [place] [address] Dr. Andrey HargroveXR CHEST 2 Von 69-95-7885QF CHEST 2 VEXAMINATION: XR CHEST 2 V [...] Electronically authenticated by: RENETTA RENEE Date: 2022-05-12 09:12Corey HospitalBNPon 23-10-3748Wfygfswoydr peptide B (Bld) [Mass/Vol]7074.0 pg/mLCritically high<=900.0The [facility] WestComment on above:Performed By: #### VITAD, FETIBC, FERR #### [facility] [address] [place] [address] Dr. Andrey Jimenez AUTO DIFFon 51-35-0706DIFR #0.1 103/ulNormal0.0-0.1The [facility] - WestComment on above:Performed By: #### VITAD, FETIBC, FERR #### [facility] [address] [place] [address] Dr. Andrey HargroveBasophils/100 WBC (Bld)0.7 %Normal0.2-2.0[facility] Comment on above:Performed By: #### VITAD, FETIBC, FERR #### [facility] [address] [place] [address] Dr. Andrey Copeland #0.3 103/ulNormal0.0-0.7The [facility] WestComment on above: Performed By: #### VITAD, FETIBC, FERR #### [facility] [address] [place] [address] Dr. Andrey Wilkinsonosinophils/100 WBC (Bld)3.8 %Normal0.9-7.0The [facility] Comment on above:Performed By: #### VITAD, FETIBC, FERR #### [facility] [address] [place] [address] Dr. Andrey Wilkinsonrythrocyte distribution width (RBC) [Ratio]14.7 %Toqhzu71.0-15.0 [facility]oples HospitalComment on above:Performed By: #### VITAD, FETIBC, FERR #### [facility] [address] [place] [address] Dr. Andrey HargroveHematocrit (Bld) [Volume fraction]29.6 %Critically low36.0-48.0 The [facility] - WestComment on above:Performed By: #### VITAD, FETIBC, FERR #### [facility] [address] [place] [address] Dr. Andrey HargroveHemoglobin (Bld) [Mass/Vol]9.9 g/dLCritically low12.0-16.0The [facility] WestComment on above:Performed By: #### VITAD, FETIBC, FERR #### [facility] [address] [place] [address] Dr. Andrey Willard #0.03 10e3/ulNormal0.00-0.03The [facility] - WestComment on above:Performed By: #### VITAD, FETIBC, FERR #### [facility] [address] [place] [address] Dr. Andrey Willard %0.4 %Normal0.0-0.5The [facility] - WestComment on above: Performed By: #### VITAD, FETIBC, FERR #### [facility] [address] [place] [address] Dr. Andrey Jarrett #1.3 103/ulNormal1.2-3.8The [facility] - WestComment on above:Performed By: #### VITAD, FETIBC, FERR #### [facility] [address] [place] [address] Dr. Andrey Derashocytes/100 WBC (Bld)16.3 %Critically low20.5-60.0The [facility] Centerment on above:Performed By: #### VITAD, FETIBC, FERR #### [facility] [address] [place] [address] Dr. Andrey ConnollyUAL DIFF REQNONormalThe [facility] - WestComment on above: Performed By: #### VITAD, FETIBC, FERR #### [facility] [address] [place] [address] Dr. Andrey Sevilla (RBC) [Entitic mass]28.7 ciWxvljd45.7-34.0The [facility] - WestComment on above:Performed By: #### VITAD, FETIBC, FERR #### [facility] [address] [place] [address] Dr. Andrey Coker (RBC) [Mass/Vol]33.4 g/vSEdbddf75.9-35.2The [facility] - WestComment on above:Performed By: #### VITAD, FETIBC, FERR #### [facility] [address] [place] [address] Dr. Andrey Chua (RBC) [Entitic vol]85.8 aUKqjmkn79.0-99.0The [facility] - WestComment on above:Performed By: #### VITAD, FETIBC, FERR #### [facility] [address] [place] [address] Dr. Andrey Magaña #0.7 103/ulNormal0.3-0.8The [facility] - WestComment on above:Performed By: #### VITAD, FETIBC, FERR #### [facility] [address] [place] [address] Dr. Andrey Hamiltonocytes/100 WBC (Bld)8.7 %Normal1.7-12.0The [facility] Comment on above:Performed By: #### VITAD, FETIBC, FERR #### [facility] [address] [place] [address] Dr. Andrey Hay #5.4 103/ulNormal1.4-6.5The [facility] - WestComment on above:Performed By: #### VITAD, FETIBC, FERR #### [facility] [address] [place] [address] Dr. Andrey Brionesutrophils/100 WBC (Bld)70.1 %Kolfvt16.0-75.0The [facility] - WestComment on above:Performed By: #### VITAD, FETIBC, FERR #### [facility] [address] [place] [address] Dr. Andrey Khan mean volume (Bld) [Entitic vol]10.9 fLNormal9.5-13.5The [facility] WestComment on above:Performed By: #### VITAD, FETIBC, FERR #### [facility] [address] [place] [address] Dr. Andrey HargrovePLT171 103/cbBansji804-118Rqu [facility] WestComment on above: Performed By: #### VITAD, FETIBC, FERR #### [facility] [address] [place] [address] Dr. Andrey HargroveRBC3.45 106/ulCritically low4.20-5.40The [facility] - WestComment on above:Performed By: #### VITAD, FETIBC, FERR #### [facility] [address] [place] [address] Dr. Andrey HargroveWBC7.7 103/ulNormal4.0-11.0The [facility] - WestComment on above: Performed By: #### VITAD, FETIBC, FERR #### [facility] [address] [place] [address] Dr. Andrey HargrovePROF CHEM 8 (BAS METB)on 23-50-0599Jzceh gap [Moles/Vol]9.8 mmol/LNormalThe [facility] - WestComment on above:Performed By: #### VITAD, FETIBC, FERR #### [facility] [address] [place] [address] Dr. Andrey HargroveCalcium [Mass/Vol]9.1 mg/dLNormal8.5-10.1The [facility] Comment on above:Performed By: #### VITAD, FETIBC, FERR #### [facility] [address] [place] [address] Dr. Andrey HargroveChloride [Moles/Vol]96 mmol/LCritically lys36-035Sub [facility] - WestComment on above:Performed By: #### VITAD, FETIBC, FERR #### [facility] [address] [place] [address] Dr. Andrey HargroveCO2 [Moles/Vol]30.8 mmol/MZzgfcn37.0-32.0The [facility] Comment on above:Performed By: #### VITAD, FETIBC, FERR #### [facility] [address] [place] [address] Dr. Andrey HargroveCreatinine [Mass/Vol]2.28 mg/dLCritically high0.55-1.02The [facility] - WestComment on above:Performed By: #### VITAD, FETIBC, FERR #### [facility] [address] [place] [address] Dr. Andrey WilkinsonGFR-AF DPNZMBJY22 mL/min/1.06y6Zvsmwlnlkm low>=60The [facility] - WestComment on above:Performed By: #### VITAD, FETIBC, FERR #### [facility] [address] [address] [address] Andrey WilkinsonGFR-NON AF POYVNOXB24 mL/min/1.18r5Eddhqurhse low>=60The [facility] on above:Performed By: #### VITAD, FETIBC, FERR #### [facility] [address] [place] [address] Dr. Andrey HargroveGlucose [Mass/Vol]158 mg/dLCritically qywt43-838Fnz [facility] WestComment on above:Performed By: #### VITAD, FETIBC, FERR #### [facility] [address] [place] [address] Dr. Andrey HargrovePotassium [Moles/Vol]3.6 mmol/LNormal3.5-5.1The [facility] Comment on above:Performed By: #### VITAD, FETIBC, FERR #### [facility] [address] [place] [address] Dr. Andrey HargroveSodium [Moles/Vol]133 mmol/LCritically snn628-458Cis [facility] Centerment on above:Performed By: #### VITAD, FETIBC, FERR #### [facility] [address] [place] [address] Dr. Andrey HargroveUrea nitrogen [Mass/Vol]66.0 mg/dLCritically high7.0-18.0The [facility] Centerment on above:Performed By: #### VITAD, FETIBC, FERR #### [facility] [address] [place] [address] Dr. Andrey HargroveUrea nitrogen/Creatinine [Mass ratio]28.9 mg/mgNormalThe Hammond HospitalComment on above:Performed By: #### VITAD, FETIBC, FERR #### [facility] [address] [address] [address] Andrey HargroveMAGNESIUMon 87-44-3420Jotlmkiet [Mass/Vol]1.9 mg/dLNormal1.8-2.4 The [facility] - WestComment on above:Performed By: #### VITAD, FETIBC, FERR #### [facility] [address] [address] [address] Andrey HargrovePROF CHEM 8 (BAS METB)on 93-51-5399Mepex gap [Moles/Vol]11.7 mmol/LNormalThe [facility] - WestComment on above:Performed By: #### VITAD, FETIBC, FERR #### [facility] [address] [place] [address] Dr. Andrey HargroveCalcium [Mass/Vol]9.4 mg/dLNormal8.5-10.1The [facility] Comment on above:Performed By: #### VITAD, FETIBC, FERR #### [facility] [address] [address] [address] Andrey HargroveChloride [Moles/Vol]97 mmol/LCritically ghy07-686Tfm [facility] WestComment on above:Performed By: #### VITAD, FETIBC, FERR #### [facility] [address] [address] [address] Andrey HargroveCO2 [Moles/Vol]29.0 mmol/SPzzovw94.0-32.0The [facility] Comment on above:Performed By: #### VITAD, FETIBC, FERR #### [facility] [address] [address] [address] Andrey HargroveCreatinine [Mass/Vol]2.02 mg/dLCritically high0.55-1.02The [facility] - WestComment on above:Performed By: #### VITAD, FETIBC, FERR #### [facility] [address] [place] [address] Dr. Balderas ChangEGFR-AF ZONPZMVJ00 mL/min/1.05n1Vxfespznkm low>=60The [facility] - WestComment on above:Performed By: #### VITAD, FETIBC, FERR #### [facility] [address] [address] [address] Balderas ChangEGFR-NON AF QQQYZAFD01 mL/min/1.15u4Xqereqkpcv low>=60The [facility] - WestComment on above:Performed By: #### VITAD, FETIBC, FERR #### [facility] [address] [address] [address] Andrey HargroveGlucose [Mass/Vol]204 mg/dLCritically tnfp50-857Npx [facility] WestComment on above:Performed By: #### VITAD, FETIBC, FERR #### [facility] [address] [place] [address] Dr. Andrey HargrovePotassium [Moles/Vol]3.7 mmol/LNormal3.5-5.1The [facility] Comment on above:Performed By: #### VITAD, FETIBC, FERR #### [facility] [address] [address] [address] Andrey HargroveSodium [Moles/Vol]134 mmol/LCritically krg760-973Fnw [facility] Centerment on above:Performed By: #### VITAD, FETIBC, FERR #### [facility] [address] [place] [address] Dr. Andrey HargroveUrea nitrogen [Mass/Vol]60.0 mg/dLCritically high7.0-18.0The [facility] - WestComment on above:Performed By: #### VITAD, FETIBC, FERR #### [facility] [address] [place] [address] Dr. Andrey HargroveUrea nitrogen/Creatinine [Mass ratio]29.7 mg/mgNormalThe [facility] - WestComment on above:Performed By: #### VITAD, FETIBC, FERR #### [facility] [address] [place] [address] Dr. Andrey PettitH INTACTon 96-87-8340PBT, Fhieel68 pg/fNUfmtze71-87Jqj [facility] Centerment on above:Performed By: #### LIPID, TSH, FT3 #### [facility] [address] [place] [address] Dr. Andrey HargroveFERRITINon 38-49-2519Mtznszqv [Mass/Vol]133.0 ng/mLNormal 8.0-252.0The [facility] Centerment on above:Performed By: #### VITAD, FETIBC, FERR #### [facility] [address] [place] [address] Dr. Andrey HargroveHEMOGRAM AND PLATELon 86-27-2879Mntlbcoqaz (Bld) [Volume fraction]31.7 %Critically low36.0-48.0The [facility] on above: Performed By: #### VITAD, FETIBC, FERR #### [facility] [address] [place] [address] Dr. Andrey HargroveHemoglobin (Bld) [Mass/Vol]10.2 g/dLCritically low12.0-16.0The [facility] Centerment on above:Performed By: #### VITAD, FETIBC, FERR #### [facility] [address] [place] [address] Dr. Andrey Coker (RBC) [Entitic mass]28.3 vgLybycl71.7-34.0The [facility] WestComtrinity health [facility] on above:Performed By: #### VITAD, FETIBC, FERR #### [facility] [address] [place] [address] Dr. Andrey Coker (RBC) [Mass/Vol]32.2 g/dPHfcpor51.9-35.2The [facility] Centerment on above:Performed By: #### VITAD, FETIBC, FERR #### [facility] [address] [place] [address] Dr. Andrey Coker (RBC) [Entitic vol]88.1 nGUirtud40.0-99.0The [facility] Centerment on above:Performed By: #### VITAD, FETIBC, FERR #### [facility] [address] [place] [address] Dr. Andrey HargrovePLT198 103/qgUjxxdm449-017Fwq [facility] - WestComment on above: Performed By: #### VITAD, FETIBC, FERR #### [facility] [address] [place] [address] Dr. Andrey HargroveRBC3.60 106/ulCritically low4.20-5.40The [facility] - WestComment on above:Performed By: #### VITAD, FETIBC, FERR #### [facility] [address] [place] [address] Dr. Andrey HargroveWBC8.5 103/ulNormal4.0-11.0The [facility] - WestComment on above: Performed By: #### VITAD, FETIBC, FERR #### [facility] [address] [place] [address] Dr. Andrey Mason AND TIBCon 01-17-2022% SXVUPTYGTV76.8 %NormalThe [facility] - WestComment on above:Performed By: #### VITAD, FETIBC, FERR #### [facility] [address] [place] [address] Dr. Andrey Mason [Mass/Vol]47.0 ug/dLCritically low50.0-170.0The [facility] WestComment on above:Performed By: #### VITAD, FETIBC, FERR #### [facility] [address] [place] [address] Dr. Andrey Zhou AJHOZR784.0 ug/eFQfejyc723.0-450.0The [facility] Comment on above:Performed By: #### VITAD, FETIBC, FERR #### [facility] [address] [place] [address] Dr. Andery ValenzuelaESIUMon 16-22-2795Kqkotjyrs [Mass/Vol]2.0 mg/dLNormal1.8-2.4 The [facility] - WestComment on above:Performed By: #### VITAD, FETIBC, FERR #### [facility] [address] [place], [place] [id number] Dr. Andrey Adan FUNCTION PANELon 53-60-9428Yipettd [Mass/Vol]3.3 g/dL Critically low3.4-5.0The [facility] - WestComment on above:Performed By: #### VITAD, FETIBC, FERR #### [facility] [address] [place] [address] Dr. Andrey HargroveCalcium [Mass/Vol]9.1 mg/dLNormal8.5-10.1The [facility] Comment on above:Performed By: #### VITAD, FETIBC, FERR #### [facility] [address] [place] [address] Dr. Andrey HargroveChloride [Moles/Vol]104 mmol/KUugjcb93-199NqbPeoples Hospital Comment on above:Performed By: #### VITAD, FETIBC, FERR #### [facility] [address] [place] [address] Dr. Andrey HargroveCO2 [Moles/Vol]27.6 mmol/TBdfith20.0-32.0[facility] Comment on above:Performed By: #### VITAD, FETIBC, FERR #### [facility] [address] [place] [address] Dr. Andrey HargroveCreatinine [Mass/Vol]1.71 mg/dLCritically high0.55-1.02[facility] HospitalComment on above:Performed By: #### VITAD, FETIBC, FERR #### [facility] [address] [place] [address] Dr. Andrey WilkinsonGFR-AF IXPVUKXX70 mL/min/1.51i1Cgiqtiegbx low>=60The [facility] - WestComment on above:Performed By: #### VITAD, FETIBC, FERR #### [facility] [address] [place] [address] Dr. Andrey WilkinsonGFR-NON AF XZQLVWEH27 mL/min/1.66i7Wkvekyvvjo low>=60The [facility] WestComment on above:Performed By: #### VITAD, FETIBC, FERR #### [facility] [address] [address] [address] Andrey HargroveGlucose [Mass/Vol]115 mg/dLCritically oaoh61-224Jzn [facility] WestComment on above:Performed By: #### VITAD, FETIBC, FERR #### [facility] [address] [address] [address] Andrey HargrovePhosphate [Mass/Vol]4.3 mg/dLNormal2.6-4.7The [facility] Comment on above:Performed By: #### VITAD, FETIBC, FERR #### [facility] [address] [address] [address] Andrey HargrovePotassium [Moles/Vol]3.9 mmol/LNormal3.5-5.1[facility] Comment on above:Performed By: #### VITAD, FETIBC, FERR #### [facility] [address] [place] [address] Dr. Andrey Menchacadium [Moles/Vol]139 mmol/DWcsaxg224-828DpfPeoples Hospital Comment on above:Performed By: #### VITAD, FETIBC, FERR #### [facility] [address] [address] [address] Andrey HargroveUrea nitrogen [Mass/Vol]38.0 mg/dLCritically high7.0-18.0The [facility] Centerment on above:Performed By: #### VITAD, FETIBC, FERR #### [facility] [address] [place] [address] Dr. Andrey Link RANDOM W/MICROSCOPICon 98-76-7074GQZVXGFMLJET SEENNormalNONE SEENPeoples HospitalComment on above:Performed By: #### LIPID, TSH, FT3 #### [facility] [address] [place] [address] Dr. Andrey Godfrey Ql (U)NegativeNormalNEGATIVEPeoples Hospital Comment on above:Performed By: #### LIPID, TSH, FT3 #### [facility] [address] [place] [address] Dr. Andrey HargroveCASTSEENAbnormalNONE SEENThe [facility] Centerment on above: Performed By: #### LIPID, TSH, FT3 #### [facility] [address] [address] [address] Andrey Bacaarity ()CLEARNormalCLEARPeoples HospitalComment on above: Performed By: #### LIPID, TSH, FT3 #### [facility] [address] [address] [address] Andrey Cervantes (U)LT. YELLOWNormalYELLOWPeoples HospitalComtrinity health [facility] hospital on above:Performed By: #### LIPID, TSH, FT3 #### [facility] [address] [address] [address] Andrey HargroveCrystals LM Nom (Urine sed)NONE SEENNormalNONE SEENMercy Health – The Jewish Hospitalment on above:Performed By: #### LIPID, TSH, FT3 #### [facility] [address] [address] [address] Balderas ChangEpithelial cells LM Ql (Urine sed)FEWAbnormalNONE SEEN /RAREAdams County Regional Medical Center on above:Performed By: #### LIPID, TSH, FT3 #### [facility] [address] [address] [address] Andrey Crandallose Ql (U)NegativeNormalNEGATIVEAdams County Regional Medical Center on above:Performed By: #### LIPID, TSH, FT3 #### [facility] [address] [address] [address] Andrey HargroveHemoglobin Ql (U)NegativeNormalNEGATIVEDayton Children'S Hospital on above:Performed By: #### LIPID, TSH, FT3 #### [facility] [address] [address] [address] Andrey HargroveHYALINE CASTRARENormalAdams County Regional Medical Center on above: Performed By: #### LIPID, TSH, FT3 #### [facility] [address] [address] [address] Andrey HargroveKetones Ql (U)NegativeNormalNEGATIVEAdams County Regional Medical Center on above:Performed By: #### LIPID, TSH, FT3 #### [facility] [address] [address] [address] Andrey SouzaOCYTESTRACEAbnormalNEGATIVEThe [facility] - WestComment on above:Performed By: #### LIPID, TSH, FT3 #### [facility] [address] [address] [address] Andrey HargroveMUCOUSNONKaterin SEENNormalNONE SEENThe [facility] - WestComment on above:Performed By: #### LIPID, TSH, FT3 #### [facility] [address] [address] [address] Andrey Bernal Ql (U)NegativeNormalNEGATIVEThe [facility] - WestComment on above:Performed By: #### LIPID, TSH, FT3 #### [facility] [address] [place] [address] Dr. Andrey HargrovepH (U)5.0 [pH]Normal5-9The [facility] - WestComment on above: Performed By: #### LIPID, TSH, FT3 #### [facility] [address] [place] [address] Dr. Andrey HargroveMffydODB1-5Cepbgb0-1[facility] on above:Performed By: #### LIPID, TSH, FT3 #### [facility] [address] [place] [address] Dr. Andrey HargroveSPEC GRAVITY1.439Gtlapl0.005-<=1.025The [facility] - WestComment on above:Performed By: #### LIPID, TSH, FT3 #### [facility] [address] [place] [address] Dr. Andrey HargroveUA PROTEINNegativeNormalNEGATIVE/ TRACEThe [facility] Comment on above:Performed By: #### LIPID, TSH, FT3 #### [facility] [address] [place] [address] Dr. Andrey Maldonado Qn (U)0.2 {Kelly'U}/dLNormal0.2 - 1.0The [facility] - WestComment on above:Performed By: #### LIPID, TSH, FT3 #### [facility] [address] [place] [address] Dr. Andrey HargroveWBC2-5AbnormalNONE SEENPeoples HospitalComment on above: Performed By: #### LIPID, TSH, FT3 #### [facility] [address] [place] [address] Dr. Andrey HargroveURIC ACID SERUMon 61-08-8618Hghoe [Mass/Vol]5.4 mg/dLNormal 2.6-6.0The [facility] - WestComment on above:Performed By: #### VITAD, FETIBC, FERR #### [facility] [address] [place] [address] Dr. Andrey Sanchez T PROTEIN CREAT RATIOon 12-78-0716Thbfvlj (U) [Mass/Vol] 15.3 mg/dLCritically high<=12.0The [facility] WestComment on above:Performed By: #### VITAD, FETIBC, FERR #### [facility] [address] [place] [address] Dr. Andrey Fox PROT CREAT RAT0.36NoDayton Children's HospitalComment on above: Performed By: #### VITAD, FETIBC, FERR #### [facility] [address] [place] [address] Dr. Andrey Sanchez CREAT42.16 mg/wOFpdrtf08.00-300.00[facility] Comment on above:Performed By: #### VITAD, FETIBC, FERR #### [facility] [address] [place] [address] Dr. Andrey HargroveVITAMIN D 25 OHon 77-71-1050THZ D 25-OH73.8 ng/mLNormalThe [facility] - WestComment on above:Performed By: #### VITAD, FETIBC, FERR #### [facility] [address] [place] [address] Dr. Andrey Blake RANGESSEE BELOWNoDayton Children's HospitalComment on above: Result Comment: <20 ng/mL Vit D deficient 20 - <30 ng/mL Vit D insufficient 30 - 100 ng/mL Vit D sufficient >100 ng/mL Potential ToxicityPerformed By: #### VITAD, FETIBC, FERR #### [facility] [address] [place] [address] Dr. Andrey ChinF CHEM 8 (BAS METB)on 47-80-7993Jrmio gap [Moles/Vol]13.3 mmol/LNormalThe [facility] WestComment on above:Performed By: #### VITAD, FETIBC, FERR #### [facility] [address] [place] [address] Dr. Andrey HargroveCalcium [Mass/Vol]9.5 mg/dLNormal8.5-10.1The [facility] Comment on above:Performed By: #### VITAD, FETIBC, FERR #### [facility] [address] [place] [address] Dr. Andrey HargroveChloride [Moles/Vol]98 mmol/FRnpjjp47-638Qto [facility] Comment on above:Performed By: #### VITAD, FETIBC, FERR #### [facility] [address] [place] [address] Dr. Andrey HargroveCO2 [Moles/Vol]25.7 mmol/TYjhrsf27.0-32.0The [facility] Comment on above:Performed By: #### VITAD, FETIBC, FERR #### [facility] [address] [place] [address] Dr. Andrey HargroveCreatinine [Mass/Vol]2.92 mg/dLCritically high0.55-1.02The [facility] WestComment on above:Performed By: #### VITAD, FETIBC, FERR #### [facility] [address] [place] [address] Dr. Andrey WilkinsonGFR-AF ZRQVWZKV42 mL/min/1.78w0Ksshnfqkfk low>=60The [facility] - WestComment on above:Performed By: #### VITAD, FETIBC, FERR #### [facility] [address] [place] [address] Dr. Andrey WilkinsonGFR-NON AF NRKDBMWF83 mL/min/1.77w6Blxfhhaxvs low>=60The [facility] - WestComment on above:Performed By: #### VITAD, FETIBC, FERR #### [facility] [address] [address] [address] Andrey HargroveGlucose [Mass/Vol]156 mg/dLCritically ucfv71-316Rxn [facility] WestComment on above:Performed By: #### VITAD, FETIBC, FERR #### [facility] [address] [address] [address] Andrey HargrovePotassium [Moles/Vol]5.0 mmol/LNormal3.5-5.1The [facility] Comment on above:Performed By: #### VITAD, FETIBC, FERR #### [facility] [address] [place] [address] Dr. Andrey HargroveSodium [Moles/Vol]132 mmol/LCritically bxq713-944Vpr [facility] WestComment on above:Performed By: #### VITAD, FETIBC, FERR #### [facility] [address] [place] [address] Dr. Andrey HargroveUrea nitrogen [Mass/Vol]77.0 mg/dLCritically high7.0-18.0The [facility] - WestComment on above:Result Comment: CALLED TO FRANCIS JUNG RMA Performed By: #### VITAD, FETIBC, FERR #### [facility] [address] [place] [address] Dr. Andrey HargroveUrea nitrogen/Creatinine [Mass ratio]26.4 mg/mgNormalThe [facility] - WestComment on above:Performed By: #### VITAD, FETIBC, FERR #### [facility] [address] [place] [address] Dr. Andrey HarrgoveCardiovascular Lab Reporton [id number] Lab Report [facility] Patient Name: Claudia Estrella [facility] MR #: [id number] Physician: Karthik Calvo of [facility] Date: 12/09/2021 Division of Birthdate: 1950 Cardiology Room #: CC Adult Cardiovascular Services [facility] [address] [place], [place] [address] Cardiovascular Laboratory Report INDICATION: The patient is [...] signed informed consent. 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 The right neck area was prepped and draped in usual fashion. Micropuncture technique and ultrasound guidance were used for access in the right internal jugular vein. A 5-Nicaraguan x 11 cm sheath was placed. A 5-Nicaraguan Dumont catheter was used for right heart [...] Fish M.D. Date Trans: 12/09/2021 11:37 P/mmo [id number] cc: John Perdomo D.O. [address] [place] [id number] COMPLETE BLOOD COUNTon 03-75-1061Zjtkppjmpgs distribution width (RBC) [Ratio]13.6 %Normal 11.5-15.0The [facility] Bryan HospitalComment on above:Performed By: #### [id number] #### [facility] [address] [facility] [place] [address], S[facility] ANA HEALTH CENTERHematocrit (Bld) [Volume fraction]35.6 %Low36.0-45.0The [facility] HospitalComment on above:Performed By: #### [id number] #### [facility] [address] [place] [address], USAHemoglobin (Bld) [Mass/Vol]11.8 g/dLLow12.0-15.0The [facility] HospitalComment on above:Performed By: #### [id number] #### [facility] [address] [place] [address], USAMCH (RBC) [Entitic mass]28.6 zoJzmlba81.0-33.0The [facility] HospitalComment on above:Performed By: #### [id number] #### [facility] [address] [place] [address], USAMCHC (RBC) [Mass/Vol]33.1 g/sOEwnsxr03.0-35.0The [facility] HospitalComment on above:Performed By: #### [id number] #### [facility] [address] [facility] [address] [place] [address], [facility]ALTH CENTERMCV (RBC) [Entitic vol]86.2 sLOlgzev44.0-98.0The [facility] Bryan HospitalComment on above:Performed By: #### [id number] #### [facility] [address] [facility] [place] [address], USANucleated RBC/100 WBC (Bld) [Ratio]0 %Normal0-0The [facility] HospitalComment on above:Performed By: #### [id number] #### [facility] [address] [facility] [place] [address], USAPLAT PXF781 10*3/dRKktukf820-709Lwh [facility] HospitalComment on above:Performed By: #### [id number] #### [facility] [address] [facility] [place] [address], [facility]ALTH CENTERRBC (Bld) [#/Vol]4.13 10*6/uLNormal3.80-5.00The [facility] HospitalComment on above:Performed By: #### [id number] #### [facility] [address] [facility] [place] [address], USAWBC (Bld) [#/Vol]14.13 10*3/uLHigh4.00-10.60The [facility] HospitalComment on above:Performed By: #### [id number] #### [facility] [address] [facility] [place] [address], USACovid-19 PCR (CVDTBH)on 91-35-3256SXRM-CoV-2 (COVID-19) RNA JAYASHREE+probe Ql (Unsp spec)Not detectedNormalNOT DETECTEDThe [facility] Comment on above:Result Comment: This test is not yet approved or cleared by the [place] FDA. When there are no FDA-approved or cleared tests available, and other criteria are met, FDA can make tests available under an emergency access mechanism called an Emergency Use Authorization (EUA). The EUA for this test is supported by the [place] of [place] and Human Service's (HHS's) declaration [...] SARS-CoV-2.Performed By: #### VITAD, FETIBC, FERR #### [facility] [address] [place] [address] Dr. Balderas ChangECHOCARDIO M/2D COMPLETEon 52-61-9664KQNNQBMFYX M/2D COMPLETE Patient: CLAUDIA ESTRELLA Exam Date: 12/06/2021 : 1950 Gender:F Ordering : KWAN ROSALES Admission #: [id number] Family : DR JOHN PERDOMO D.OSwati Order #: [id number] CLICK HERE TO VIEW EXAM ECHOCARDIOGRAM REPORT [...] Area(A4C): 14.80 cm2 Left Atrium Systolic Volume(A2C): 35325 mm3 Left Atrium Systolic Volume(A4C): 60482 mm3 Mitral Valve MV E to A [...] by: Karthik Fish M.D. on 12/06/2021 at 17:31Corey HospitalBNPon 75-13-3399Ylqtqjqtzng peptide B (Bld) [Mass/Vol]5127.0 pg/mL Critically high<=900.0The [facility] - WestComment on above:Performed By: #### VITAD, FETIBC, FERR #### [facility] [address] [place] [address] Dr. Andrey HargrovePROF CHEM 8 (BAS METB)on 34-20-8869Ccgoa gap [Moles/Vol]13.9 mmol/LNormalThe [facility] - WestComment on above:Performed By: #### VITAD, FETIBC, FERR #### [facility] [address] [place] [address] Dr. Andrey HargroveCalcium [Mass/Vol]9.4 mg/dLNormal8.5-10.1[facility] Comment on above:Performed By: #### VITAD, FETIBC, FERR #### [facility] [address] [place] [address] Dr. Andrey HargroveChloride [Moles/Vol]99 mmol/LMpqmzy65-603Vdo [facility] Comment on above:Performed By: #### VITAD, FETIBC, FERR #### [facility] [address] [place] [address] Dr. Andrey HargroveCO2 [Moles/Vol]28.4 mmol/VGzmsxq16.0-32.0The [facility] Comment on above:Performed By: #### VITAD, FETIBC, FERR #### [facility] [address] [place] [address] Dr. Andrey HargroveCreatinine [Mass/Vol]2.11 mg/dLCritically high0.55-1.02The [facility] - WestComment on above:Performed By: #### VITAD, FETIBC, FERR #### [facility] [address] [place] [address] Dr. Andrey WilkinsonGFR-AF KAXAABST60 mL/min/1.08c9Kxyrbadter low>=60The [facility] - WestComment on above:Performed By: #### VITAD, FETIBC, FERR #### [facility] [address] [place] [address] Dr. Balderas ChangEGFR-NON AF ZWHQNTDW89 mL/min/1.68t9Dzzocwuezj low>=60The [facility] - WestComment on above:Performed By: #### VITAD, FETIBC, FERR #### [facility] [address] [place] [address] Dr. Andrey HargroveGlucose [Mass/Vol]179 mg/dLCritically rpam04-976Nsu [facility] WestComment on above:Performed By: #### VITAD, FETIBC, FERR #### [facility] [address] [place] [address] Dr. Andrey HargrovePotassium [Moles/Vol]4.3 mmol/LNormal3.5-5.1[facility] Comment on above:Performed By: #### VITAD, FETIBC, FERR #### [facility] [address] [place] [address] Dr. Andrey HargroveSodium [Moles/Vol]137 mmol/KWoinkv817-898PqpPeoples Hospital Comment on above:Performed By: #### VITAD, FETIBC, FERR #### [facility] [address] [place] [address] Dr. Andrey HargroveUrea nitrogen [Mass/Vol]62.0 mg/dLCritically high7.0-18.0The [facility] WestComment on above:Performed By: #### VITAD, FETIBC, FERR #### [facility] [address] [place] [address] Dr. Andrey Mccarty nitrogen/Creatinine [Mass ratio]29.4 mg/mgNormalThe [facility] WestComment on above:Performed By: #### VITAD, FETIBC, FERR #### [facility] [address] [place] [address] Dr. Andrey Monge 70-60-8353Cvurkevpsgv peptide B (Bld) [Mass/Vol]4773.0 pg/mLCritically high<=900.0The [facility] WestComment on above:Performed By: #### VITAD, FETIBC, FERR #### [facility] [address] [place] [address] Dr. Andrey HargrovePROF CHEM 8 (BAS METB)on 66-48-1544Wufef gap [Moles/Vol]11.3 mmol/LNormalThe [facility] WestComment on above:Performed By: #### VITAD, FETIBC, FERR #### [facility] [address] [place] [address] Dr. Andrey HargroveCalcium [Mass/Vol]8.9 mg/dLNormal8.5-10.1[facility] Comment on above:Performed By: #### VITAD, FETIBC, FERR #### [facility] [address] [place] [address] Dr. Andrey HargroveChloride [Moles/Vol]100 mmol/IOsimyt58-288Ukp [facility] Comment on above:Performed By: #### VITAD, FETIBC, FERR #### [facility] [address] [place] [address] Dr. Andrey HargroveCO2 [Moles/Vol]30.9 mmol/MVpotrz96.0-32.0[facility] Comment on above:Performed By: #### VITAD, FETIBC, FERR #### [facility] [address] [place] [address] Dr. Andrey HargroveCreatinine [Mass/Vol]2.01 mg/dLCritically high0.55-1.02The [facility] WestComment on above:Performed By: #### VITAD, FETIBC, FERR #### [facility] [address] [place] [address] Dr. Andrey WilkinsonGFR-AF WDTIMNVA99 mL/min/1.48s2Kjtfxcfrdn low>=60The [facility] - WestComment on above:Performed By: #### VITAD, FETIBC, FERR #### [facility] [address] [address] [address] Andrey WilkinsonGFR-NON AF ZKNBXUHI97 mL/min/1.17c0Thkjheuwsg low>=60The [facility] - WestComment on above:Performed By: #### VITAD, FETIBC, FERR #### [facility] [address] [address] [address] Andrey HargroveGlucose [Mass/Vol]81 mg/bFNyaqat84-365Obu [facility] Comment on above:Performed By: #### VITAD, FETIBC, FERR #### [facility] [address] [address] [address] Andrey HargrovePotassium [Moles/Vol]3.2 mmol/LCritically low3.5-5.1[facility]oples HospitalComment on above:Performed By: #### VITAD, FETIBC, FERR #### [facility] [address] [address] [address] Andrey HargroveSodium [Moles/Vol]139 mmol/SDbharx191-265Rvc [facility] Comment on above:Performed By: #### VITAD, FETIBC, FERR #### [facility] [address] [address] [address] Andrey HargroveUrea nitrogen [Mass/Vol]51.0 mg/dLCritically high7.0-18.0[facility] HospitalComment on above:Performed By: #### VITAD, FETIBC, FERR #### [facility] [address] [place] [address] Dr. Andrey Mccarty nitrogen/Creatinine [Mass ratio]25.4 mg/mgNormalThe [facility] WestComment on above:Performed By: #### VITAD, FETIBC, FERR #### [facility] [address] [place] [address] Dr. Andrey CeeD-19 Antigenon 75-10-8770OVEMW- AntigenHealthcare Worker?: Georgi Ignacio Reference Kenny Reference [...] its performance Kenny Disclaimer characteristic determined by [employer] and Kenny Disclaimer validated at [facility]. This Kenny Disclaimer test has [...] is terminated or revoked sooner. PERFORMED BY: [place] [address] PATHOLOGIST STEAM TABLE ATTENDANT JAMAL ALLEN M.D.NormalJ.W. Ruby Memorial HospitalComment on above: Performed By: #### SOFIAPOS, COVID-19 KENNY #### [address] [address] USASofia Ag Positiveon 03-38-0797Xqfrx Ag PositivePositive Critically abnormalNegativeJ.W. Ruby Memorial HospitalComment on above: Result Comment: This is a duplicate Kenny SARS Antigen (JOSE RAMON) result to be used for statistical tracking purpose only. PERFORMED BY: [place] [address] PATHOLOGIST STEAM TABLE ATTENDANT JAMAL ALLEN M.D.Performed By: #### SOFIAPOS, COVID-19 KENNY #### [address] [address] USACoding Summary.on 99-87-9408Jylhqf Summary. CD:[id number]:[id number]+PGhlYWQ+QE2DAYGhG09ixLEawA1GN6cWHY0ENFHAIVDRTM5ORB2gk LI1BAnmO4MhomRc [file] bGxh (more content not included)...[facility] CenterConsent for Procedure/Surgeryon 15-76-7498Xulhbcy for Procedure/Surgery [id number]#1.00CD:127NormalMount Carmel Health SystemFormson [id number]#1.00CD:127 [facility] CenterLab Reportson 62-66-5388Udd Reports [id number]#1.00CD:127[facility] CenterPhysician Referralon 97-59-6052Xnwimynlw Referral [id number]#1.00CD:127[facility] Medical CenterRAD - MISCon 88-41-8608WTQ - MISC [id number]#1.00CD:[address] [place], [place] [address]RAD - Ultrasound Reporton 72-06-2753RIF - Ultrasound Report [id number]#1.00CD:127[facility] Medical CenterAmbulatory Clinical Summaryon 51-02-5684Agbzygzmib Clinical Summary {98-10-06-d9-65-jl-3m-43-l4-13-a5-88-52-c3-f8-10}CD:056409ElgjprTwyqgxKettering Health Behavioral Medical CenterPatient Educationon 48-49-8799Fltiybu EducationUrology Hematuria, Adult Hematuria is blood in [...] these instructions at home: Medicines ? Take lqxq-ore-etbyrlf and prescription medicines only as told by [...] the blood stops without treatment. ? Take qcxq-swc-xwezxfi and prescription medicines only as told by your health care provider. ? Drink enough fluid to keep your urine clear or pale yellow. This information is not intended to replace advice given to you by your health care provider. Make sure you discuss any questions you have with your health care provider. Document Released: 06/19/2006 Document Revised: 11/13/2019 Document Reviewed: 07/22/2017 [employer] Patient Education ? 2019 [employer].[facility] Urology Office/Clinic Noteon 64-01-4214Tjluqbc Office/Clinic NoteChief Complaint Cysto/UD HPI Staff Cysto/UD [...] The Urethra was dilated to: _18- 30 [place]uan with sounds. Specimens Removed: None Removal: Cystoscope [...] [facility] [address], [place] [address]- [phone] Additional Instructions: f/u PRN Patient Education Hematuria, [...] 50,000 intl units (1.25 mg) oral capsule, [address] International_Unit= 1 cap(s), Monday Zioptan 0.0015% ophthalmic solution Allergies erythromycin (Anaphylactic reaction) penicillin (Hives) Social History Alco (more content not included)...[facility] Medical CenterComment on above:Result Comment: Electronically Signed By: Marcos KWON MD\.br\Date and Time Signed: 12/15/20 15:58 EDT\.br\Electronically Co-Signed By: Donna Hartley\.br\Date and Time Co-Signed: 12/15/20 15:56 EDTReminderson 12-14-2020 Reminders From: Augusta Singh To: EU - Clinical; Sent: 12/11/2020 13:29:41 EDT Show up: 12/14/2020 13:29:00 EDT Subject: Urine culture Reminder/Recall Urine Culture PRW reviewed positive culture.[facility] Medical CenterC Urineon 25-76-4185Usyhygcb identified Cx Nom (U)Microbiology PROCEDURE: Urine Culture [...] Locations R1: [facility] at[facility], [address] [place] [address], [address] , [place], OyhwwnNaosfvKettering Health Behavioral Medical CenterComment on above:Performed By: #### [id number] ####[facility] [address] [place], [place] [address]Cnvavlxvdd Clinical Summaryon 67-93-0140Jdrceclcfb Clinical Summary {61-52-8u-l7-59-jj-23-u5-1t-3n-j3-pk-d3-6c-b8-cc}CD:059514AxcksbCklivyKettering Health Behavioral Medical CenterAmbulatory Clinical Summary {82-3d-jp-01-47-29-2z-7s-ku-77-8l-3c-8d-13-29-0f}CD:037205MqhnwgWemxdkKettering Health Behavioral Medical CenterAmbulatory Clinical Summary {2f-9v-7m-64-1u-3u-64-6l-52-74-63-8r-2b-c5-e6-1f}CD:239784MmebtaIdxghmKettering Health Behavioral Medical CenterPatient Educationon 39-39-7060Hrpqiyv EducationUrology Hematuria, Adult Hematuria is blood in [...] these instructions at home: Medicines ? Take lxkz-dsx-vtgjtdq and prescription medicines only as told by [...] the blood stops without treatment. ? Take copg-uki-ltyiprw and prescription medicines only as told by your health care provider. ? Drink enough fluid to keep your urine clear or pale yellow. This information is not intended to replace advice given to you by your health care provider. Make sure you discuss any questions you have with your health care provider. Document Released: 06/19/2006 Document Revised: 11/13/2019 Document Reviewed: 07/22/2017 [employer] Patient Education ? 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 Jenkins due to Hematuria. Pt states that since the End of October she has been feeling a slight squeeze, no pain associated with this. Pt had a Renal US done at [facility]. Pt states that she has a [...] When Contact Information CHER VIGILMarcos, [address] [place] [address]- [phone] Additional Instructions: Patient Education Hematuria, Adult I, [...] 100 mg Tab amLOD (more content not included)...[facility] Medical CenterComment on above:Result Comment: Electronically Signed By: Marcos KWON MD\.br\Date and Time Signed: 12/11/20 11:17 EDT\.br\Electronically Co-Signed By: Regla Pyle MA\.br\Date and Time Co-Signed: 12/11/2110:12 EDTLab Reportson 38-20-5860Spr [id number]#1.00CD:127Normal [facility] SystemLab Reports [id number]#1.00CD:127NoSelect Medical OhioHealth Rehabilitation HospitalRAD - Ultrasound Reporton 95-72-7258PWO - Ultrasound Report [id number]#1.00CD:127[facility] CenterIntraOperative Documentson 80-58-3882GgfdbYifurtqzk Documents [id number]#1.00CD:127JoselinSelect Medical OhioHealth Rehabilitation HospitalMessage from Medicareon 29-20-8611Phnxvik from Medicare [id number]#1.00CD:127JoselinSelect Medical OhioHealth Rehabilitation HospitalCoding Summary.on 36-88-2370Fmejlm Summary.CODING DATE: 05/06/2020 FINAL [facility] DSCH [...] PROC APC STAT DESCRIPTION DOCTOR NAME DATE 80609 5113 J1 Arthroscopy, Vinita han DO, Michael T 05/01/2020 surgical; with meniscectomy (medial OR lateral, including any meniscal shaving) including debridement/shaving of articular cartilage (chondroplasty), same or separate compartment(s), when performed LT Left side (used to identify procedures performed on the left side of the body) 20616 Anesthesia for open or Gurmeet Aldridge Jr, DO 05/01/2020 surgical arthroscopic procedures on knee joint; not otherwise specified NOTE: The code number assigned matches the documented diagnosis and / or procedure in the patient's chart. However, the narrative phrase printed from the coding software may appear abbreviated, or result in slightly different terminology. Revised Coded By: Carmita Bowers Revised Date Saved: 05/06/2020 11:55 amNOhio [facility] Hospital Insurance Correspondence Officeon 43-36-5560Aweprragw Correspondence Office [id number]#1.00CD:127[facility] CenterMain OR Intraoperative Recordon 05-08-5419Qjqz OR Intraoperative Record IntraOp Document Type FT Summary Primary Physician: David Talamantes DO Finalized Date/Time: 05/05/20 14:09:46 Pt. Name: CLAUDIA ESTRELLA James/Sex: 1950 Female Med Rec #: [id number] Physician: David Talamantes DO Financial #: [id number] Pt. Type: O Room/Bed: [place] [address] Admit/Disch: 05/01/20 11:43:14 - 05/04/20 12:35:00 Institution: [...] Role Performed Anesthesiologist of Surgeon - Primary Assistant Professor Of Geography - Primary Record Time In 05/01/20 14:26:00 05/01/20 14:39:00 05/01/20 14:26:00 Time Out 05/01/20 15:04:00 05/01/20 15:04:00 05/01/20 15:04:00 Procedure KNEE ARTHROSCOPY(Left) KNEE ARTHROSCOPY(Left) KNEE ARTHROSCOPY(Left) Comments Last Modified By: Edgar RN, Viky Hernández RN, Viky Hernández RN, Viky Mcdonough 05/01/20 15:04:35 05/01/20 15:04:35 05/01/20 15:04:35 Entry 4 Entry 5 Entry 6 Case Attendee Maxim WU, Augusta Castro STEELWORKER, Leatha Flowers RN, CNOR, Cee Role Performed Assistant Professor Of Geography - Primary Scrub - Primary Assistant Professor Of Geography - Relief Time In 05/01/20 14:26:00 05/01/20 [...] and tissue Entry 1 Skin Integrity Intact, Hayden, Warm, and Skin Abnormality No Dry Outcomes Met? Yes Last Modified By: Viky Hernández RN 05/01/20 14:46:48 Post-Care Text: The patient is free from signs and symptoms of injury caused by extraneous objects Patient Positioning FT Pre-Care Text: Identifies physical alterations that require additional precautions for procedure-specific positioning, verifies presence of prosthetics or corrective (more content not included)... [facility] CenterProgress Note-Physicianon 47-06-9313Otwmkfsq Note-PhysicianPatient: CLAUDIA ESTRELLA Age: 70 years Sex: [...] volume (mL): 1,000, 68.3 kg, 1.64, m2 [place] 5/325 Tab: 1 tab(s), Tab, Oral, q4hr [...] Problems DM kidney disease / SNOMED CT 967220371 / Confirmed PVD (peripheral vascular disease) / SNOMED CT 1634684457 / Confirmed MMT (medial meniscus tear) / SNOMED CT 549788155 / Confirmed Resolved: Ocular herpes zoster / SNOMED CT 462518755 Resolved: HTN (hypertension) / SNOMED CT 8041894016 Canceled: Diabetes / SNOMED CT 762288899 Histories Past Medical History: No active or resolved past medical history items have been selected or recorded. Family History: No family history items have been selected or recorded. Procedure history: Right eye cataract extraction and insertion of intraocular lens ([id number]) on 11/19/2019 at 69 Years. Cataract extraction and insertion of intraocular lens (9470252419) on 11/06/2019 at 69 Years. Comments: 11/06/2019 14:13 EDT - Loreto Peralta RN Left Appendectomy (569439612). section x2 (43524957). Cholecystectomy (99635892). Anesthesia for laparoscopic procedure on lower abdomen (18915022). Cheilectomy of tarsal foot (4010192641). Social History Social & Psychosocial Habits Alcohol [...] results Radiology results ECG interpretation Condition Plan [place] [employer] Anesthesiologists (ASA) physical status classification: Class III. Anesthetic Preoperative (more content not included)...[facility] Medical CenterComment on above:Result Comment: Electronically Signed By: Gurmeet [...] Problems DM kidney disease / SNOMED CT 250543958 / Confirmed PVD (peripheral vascular disease) / SNOMED CT 2688311849 / Confirmed MMT (medial meniscus tear) / SNOMED CT 746933848 / Confirmed Resolved: Ocular herpes zoster / SNOMED CT 968621954 Resolved: HTN (hypertension) / SNOMED CT 6363462891 Canceled: Diabetes / SNOMED CT 257695925 Physical Examination Vital Signs 05/01/2020 16:58 EDT [...] levels. will F/U Plan Transfer/ Discharge: Condition stable.[facility] CenterComment on above:Result Comment: Electronically Signed By: Luis Carlos Gomes DO, Gurmeet Mcdonough\.br\Date and Time Signed: 05/05/20 08:22 ESTCapillary Glucose POCon 11-83-9455Mjkfzjm [Mass/Vol]149 mg/kEJcam69-95Fgwvc[address] [place], [place] [address]Comment on above:Result Comment: Notified RN/MDPerformed By: #### [id number] #### [facility] [address] [place], [place] [address]Njrqbgc [Mass/Vol]127 mg/rJRfxa54-44J[address] Comment on above:Result Comment: Notified RN/MDPerformed By: #### [id number] #### [facility] [address] [place], [place] [address]Hjomiah for Anesthesiaon 06-34-9391Zwgauhh for Anesthesia [id number]#1.00CD:[address] [place], [place] [address]Discharge Instructionson 85-59-4600Kqausrncq Instructions [id number]#1.00CD:127[facility] CenterInpatient Clinical Summaryon 90-01-2323Oncrdkkjc Clinical Summary [address] [address] Clinical Summary Person Information: Name: CLAUDIA ESTRELLA Age: 70 Years : 1950 Sex: Female PCP: JOHN PERDOMO DO Marital Status: Race: White Ethnicity: Non- or Language: Kinyarwanda Visit Id: Visit Reason: LEFT KNEE BONE BRUISE, MEDIAL MENISCUS TEAR, EFFUSION Speciality: Acuity: Enc Type: Observation Med Service: Surgery Arrival: 05/01/2020 11:43:14 Discharge: Dispo Type: Address: [address] [place] [address] Provider Notes: Diagnosis: 1:Other chest pain; 2:Hypertension; [...] up: With: Address: When: Follow up with Compounding Assistant Within 1 week With: Address: When: JOHN PERDOMO [address] [place] [address] Business (1) With: Address: When: David Talamantes [address] [place] [address] Business (1) Comments: Keep scheduled appointment Patient Education Information: Post Op Patient Instructions - FT (Custom); Knee Cryocuff Patient Instructions - FT (Custom); Talamantes - Knee Arthroscopy (Custom) (CUSTOM)[facility] CenterInpatient Patient Summaryon 50-38-0787Locvczsmb Patient Summary [address] [address] Patient Discharge Instructions PERSON INFORMATION [...] up: With: Address: When: Follow up with Compounding Assistant Within 1 week With: Address: When: [facility]DMOO [facility] [place] [phone] Business (1) With: Address: When: David Talamantes [address] [place] [address] Business (1) Comments: Keep scheduled appointment [...] DURING YOUR HOSPITAL STAY New Medications [id number], [address], [place] [id number], [phone] atorvastatin (Lipitor 20 mg Tab) 1 Tablets [...] ALL TIMES. amlodipine (amLO (more content not included)...[facility] Interdisciplinary Note - PTon 17-41-5063Ifmxjdwezjbfxvvmk Note - PTPT Screen performed. Pt was able to stand and ambulate throughout room without difficulty and without an AD. Pt also demos appropriate ROM to knee. Would recommend to f/u with Ortho to determine if therapy is needed in the future, but no PT needed at this timeNoSelect Medical OhioHealth Rehabilitation HospitalIntraOperative Documentson 05-04-2020 IntraOperative [id number]#1.00CD:127 [facility] CenterIntraOperative Documents [id number]#1.00CD:[address] [place], [place] [address]Message from Medicareon 20-35-8089Aazqbcz from Medicare [id number]#1.00CD:[address] [place], [place] [address]Monitor Recordon 36-86-6103Yegbnro Record [id number]#1.00CD:[address] [place], [place] [address]itor [id number]#1.00CD:127[facility] HospitalMonitor Record [id number]#1.00CD:[address] [place], [place] [address]Patient Education - Texton 30-60-3260Klnswtj Education - Text [place], [place] [facility] DISCHARGE INSTRUCTIONS: KNEE ARTHROSCOPY [...] your appointment. David Talamantes, DO [facility] [address] [place] [address] Reviewed: 10-08NoSelect Medical [facility]Health Rehabilitation HospitalPreoperative Documentson 89-03-5955Gftjhxgsroqt Documents [id number]#1.00CD:127[facility] CenterPreoperative [id number]#1.00CD:127 [facility] CenterPrescriptions/Work Noteson 05-04-2020 Prescriptions/Work [id number]#1.00CD:127 NormalMount Carmel Health SystemCapillary Glucose POCon 32-22-1060Jhqacsw [Mass/Vol]183 mg/kNAlqo66-73Iuprqe[address] [place], [place] [address]Comment on above: Performed By: #### [id number] #### [facility] [address], [place] [address]Amuxovc [Mass/Vol]155 mg/lTAbtl09-51JpyimaMount Carmel Health System Comment on above:Performed By: #### [id number] #### [facility] [address], [place] [address]Odxtoih [Mass/Vol]113 mg/dNQcjy88-49Lovl[address] Comment on above:Result Comment: Notified RN/MDPerformed By: #### [id number] ####[facility] [address] [place] [address] Glucose [Mass/Vol]112 mg/cBIdkv04-93LjcduiMount Carmel Health SystemComment on above: Performed By: #### [id number] #### [facility] [address], [place] [address]Jrijggg [Mass/Vol]85 mg/cAQoovaz72-50Hqydmw03 Strong StreetComment on above:Result Comment: Notified RN/MDPerformed By: #### [id number] #### [facility] [address], [place] [address]Dfjaerz [Mass/Vol]59 mg/nDQformr30-31BbwxmoMount Carmel Health SystemComment on above:Result Comment: Notified RN/MDPerformed By: #### [id number] #### [facility] [address], [place] [address]Kykfitkqvvna Noteon 12-82-0730Pbtbmnsueshr NoteHOSPITAL REGULATIONS: ALL Positive Important Negative Findings [...] left knee and elevate. Eh Carter DO [facility] Dictated: 05/02/2020 #[id number] Typed: 05/02/2020 #[id number] cc: DO David Nieto D.O.[facility] Medical CenterComment on above:Result Comment: Electronically Signed By: Eh Carter DO\.br\Date and Time Signed: 05/03/20 10:27 ESTMonitor Recordon 22-80-5959Sttuvtn Record [id number]#1.00CD:127[facility] CenterMonitor [id number]#1.00CD:127Normal Jabier [facility] HospitalOperative Reporton 55-63-6947Bfmlwpsyy ReportDate of Surgery: 05/01/2020 SURGEON: David Talamantes [...] The patient's condition satisfactory David Talamantes D.O. [facility] Dictated: 05/01/2020 #[id number] Typed: 05/01/2020 #[id number] cc: Randa Lanier D.O.[facility] Medical CenterComment on above:Result Comment: Electronically Signed By: David Talamantes DO\.br\Date and Time Signed: 05/03/20 09:22 ESTProgress Note-Physicianon 69-16-2252Rxpqirhi Note-PhysicianAssessment/Plan 1. Other chest pain (R07.89: Other [...] mg/dL High (05/03/20 12:18:00) POC Device SN: [id number] (05/03/20 12:18:00) POC Username: JOSESITO BROWN (05/03/20 [...] 0.4 mg= 1 tab(s), SubLingual, q5min, PRN [place] 5/325 Tab, 1 tab(s), Oral, q4hr, PRN [...] Restasis 0.05% ophthalmic emulsion, 1 drop(s), Eye-Both, [facility] HospitalComment on above:Result Comment: Electronically Signed By: [...] mg/dL High (05/03/20 07:32:00) POC Device SN: [id number] (05/03/20 07:32:00) POC Username: POC Username (05/03/20 [...] to obtain her records from her primary telecommunications project manager once 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 Continue [...] Push, q2hr, PRN L (more content not included)...NormalMount Carmel Health SystemComment on above:Result Comment: Electronically Signed By: Eleuterio VIGIL, John Olson\.rashmi\Date and Time Signed: 05/03/20 07:45 ESTCapillary Glucose POCon 98-45-9296Ghdbirz [Mass/Vol]212 mg/jUOlmy82-80OzqzknMount Carmel Health SystemComment on above: Performed By: #### [id number] #### [facility] [address], [place] [address]Tyuvlqp [Mass/Vol]138 mg/vRNalz06-59LjkmqcMount Carmel Health System Comment on above:Performed By: #### [id number] #### [facility] [address] [facility], [place] [address]Yokjjcl [Mass/Vol]139 mg/hQFynt70-11DznrtyMount Carmel Health System Comment on above:Performed By: #### [id number] #### [facility] [address], [place] [address]Aojgbzg [Mass/Vol]105 mg/iGCquz03-10HtaixtMount Carmel Health System Comment on above:Performed By: #### [id number] #### [facility] [address], [place] [address]Yyrhsry [Mass/Vol]233 mg/fVKqcl28-24MoprvpMount Carmel Health System Comment on above:Result Comment: Notified RN/MDPerformed By: #### [id number] ####[facility] [address] [place], [place] [address]Drozr Panelon 58-83-3235Fmsandfmdye [Mass/Vol]160 mg/zLVagspl177-494KtihepMount Carmel Health SystemComment on above:Performed By: #### [id number] #### [facility] [address], [place] [address]Sqieoznehnk in HDL [Mass/Vol]49 mg/dLInvalid Interpretation CodeMount Carmel Health SystemComment on above:Result Comment: HDL > or equal to 60 mg/dL: Low cardiovascular risk HDL < 40 mg/dL : High cardiovascular riskPerformed By: #### [id number] #### [facility] [address], [place] [address]Qzzrmwvclbh in LDL [Mass/Vol]98 mg/dLNormal<=129Mount Carmel Health SystemComment on above:Performed By: #### [id number] #### [facility] [address], [place] [address]Qfdbbsluoio in VLDL [Mass/Vol]12 mg/dLNormal7-40Mount Carmel Health SystemComment on above:Performed By: #### [id number] #### Jabier [facility] [address], [place] [address]Ehasgeifahxw [Mass/Vol]61 mg/dLNormal<=149Mount Carmel Health SystemComment on above:Performed By: #### [id number] #### [facility] [address], [place] [address]Qawilhj Recordon 78-70-4561Rmopchy Record [id number]#1.00CD:127NormalMount Carmel Health SystemProgress Note-Physicianon 28-52-4477Diauiusq Note-PhysicianAssessment/Plan 1. Other chest pain (R07.89: Other [...] 29.6 pg (05/01/20 18:27:00) (more content not included)...NormalMount Carmel Health SystemComment on above: Result Comment: Electronically Signed By: JUN VIGIL, Nhung\.br\Date and Time Signed: 05/02/20 10:00 EDTTroponin 3 Hr.on 34-27-5864Lnzqsclv I.cardiac [Mass/Vol]3.60 pg/mLLow10.10-27.10Mount Carmel Health SystemComment on above: Result Comment: The 95% CI (Confidence Interval) PPV (Positive Predictive Value) for myocardial infarction in females is 38 pg/mL, in males 51 pg/mL. The results should be used in conjunction with clinical conditions of myocardial infarction. (Access High Sensitivity Troponin I Instructions For Use, [employer], January 2018)Performed By: #### [id number] #### [facility] [address], [place] [address]Kxuridwq 6 Hr.on 33-13-9557Fwtzijde I.cardiac [Mass/Vol]3.90 pg/mLLow10.10-27.10Mount Carmel Health SystemComment on above:Result Comment: The 95% CI (Confidence Interval) PPV (Positive Predictive Value) for myocardial infarction in females is 38 pg/mL, in males 51 pg/mL. The results should be used in conjunction with clinical conditions of myocardial infarction. (Access High Sensitivity Troponin I Instructions For Use, [employer], January 2018)Performed By: #### [id number] #### [facility] [address], [place] [address]Dusqwxlm 9 Hr.on 14-95-8218Exfrynkp I.cardiac [Mass/Vol]5.10 pg/mLLow10.10-27.10Mount Carmel Health SystemComment on above:Result Comment: The 95% CI (Confidence Interval) PPV (Positive Predictive Value) for myocardial infarction in females is 38 pg/mL, in males 51 pg/mL. The results should be used in conjunction with clinical conditions of myocardial infarction. (Access High Sensitivity Troponin I Instructions For Use, Wilfrido Zearing, January 2018)Performed By: #### [id number] #### Eugene [facility] [address] [place], [place] [address]YB Carotid Duplex Bilateralon 00-19-7806YH Carotid Duplex BilateralExam Date/Time: 05/02/2020 13:21 EDT [...] 199/45 Prox ECA (cm/sec): 199/15 Vert. Antegrade YesNormalMount Carmel Health SystemAuto Diffon 05-01-2020 Basophils/100 WBC (Bld)0.4 %Normal0.0-2.0Mount Carmel Health SystemComment on above:Order Comment: Order Added by Discern Expert.Performed By: #### [id number], [id number], 3452616, 4870098 #### [facility] [address] [place] [address]Tfiibfqsz/Leukocytes Auto (Bld) [Pure # fraction]0.0 E9/LNormal 0.0-0.2FThe Jewish HospitalComment on above:Order Comment: Order Added by Discern Expert.Performed By: #### [id number], 86724145, 5100910, 3289481 #### [facility] [address], [place] [address]Fosxjgqcipv/100 WBC (Bld)1.2 %Normal0.0-8.0[facility] Health SystemComment on above:Order Comment: Order Added by Discern Expert.Performed By: #### 9468976, 13353075, 8748480, 6715288 #### [facility] [address], [place] [address]Jvugjtibylo/Leukocytes Auto (Bld) [Pure # fraction]0.1 E9/L Normal0.0-0.5FThe Jewish HospitalComment on above:Order Comment: Order Added by Discern Expert.Performed By: #### 2496219, 68284446, 8191129, 5400506 #### [facility] [address] [place] [address]Cemxnlogini/100 WBC (Bld)9.7 %Low14.0-50.0Mount [facility] Health SystemComment on above:Order Comment: Order Added by Discern Expert.Performed By: #### 9767752, 92645519, 5042913, 0912974 #### [facility] [address] [place] [address]Hnahgkwymbt/Leukocytes Auto (Bld) [Pure # fraction]1.0 E9/L Normal1.0-4.0[facility] Health SystemComment on above:Order Comment: Order Added by Discern Expert.Performed By: #### 1993878, 96139140, 9265393, 3912222 #### [facility] [address] [place] [address]Zsqquvbnb/100 WBC (Bld)4.2 %Normal4.0-14.0[facility] Health SystemComment on above:Order Comment: Order Added by Discern Expert.Performed By: #### 3719089, 19182262, 0121028, 2462474 #### [facility] [address] [place] [address]Nbqfthuty/Leukocytes Auto (Bld) [Pure # fraction]0.4 E9/LNormal 0.2-1.0[facility] Health SystemComment on above:Order Comment: Order Added by Discern Expert.Performed By: #### 6483549, 18146616, 8754763, 7172465 #### [facility] [address] [place] [address]Cfcvvzixzoa/100 WBC (Bld)84.5 %High36.0-75.0[facility] Health SystemComment on above:Order Comment: Order Added by Discern Expert. Performed By: #### 4876775, 17188043, 7086446, 8941793 #### [facility] [address] [place] [address]Djuisebzjux/Leukocytes Auto (Bld) [Pure # fraction]8.9 E9/LHigh 2.0-7.5FThe Jewish HospitalComment on above:Order Comment: Order Added by Discern Expert.Performed By: #### 8695787, 54094871, 6826907, 7740832 #### [facility] [address], [place] [address]HHNfp 13-80-4362Ebdohda [Mass/Vol]8.9 mg/dLNormal8.9-11.1FThe Jewish HospitalComment on above:Performed By: #### 6792257, 39996209, 0611756, 0265835 #### [facility] [address], [place] [address]Ivfxq gap [Moles/Vol]10 mmol/LNormal6-16Mount [facility] Health SystemComment on above:Performed By: #### 6960220, 70445181, 6683036, 3910510 #### [facility] [address], [place] [address]Qiwclvsv [Moles/Vol]103 mmol/CMifhix448-200QaslnyMount Carmel Health SystemComment on above:Performed By: #### 3958372, 03697914, 1183254, 0639491 #### [facility] [address], [place] [address]SB7 [Moles/Vol]24 mmol/WYymzxy56-74BnqcxqMount Carmel Health System Comment on above:Performed By: #### 0582102, 33724933, 9051297, 1118511 #### [facility] [address], [place] [address]Thnylyqkek [Mass/Vol]1.6 mg/dLHigh0.5-1.3FThe Jewish HospitalComment on above:Performed By: #### 5741676, 84521300, 9581437, 3217120 #### [facility] [address], [place] [address]Gbmibpj [Mass/Vol]167 mg/vZVdaeel99-775HxdezlMount Carmel Health SystemComment on above:Result Comment: If this glucose result represents a fasting glucose, interpretation should refer tothe following reference range: 55-99 mg/dLPerformed By: #### 5636033, 32536236, 2347159, 4599450 #### [facility] [address], [place] [address]Nbiomjcxj [Moles/Vol]3.9 mmol/LNormal3.5-5.3FThe Jewish HospitalComment on above:Performed By: #### 9434191, 31097061, 2156137, 0430021 #### [facility] [address], [place] [address]Epxqdz [Moles/Vol]133 mmol/JPtf321-945PyixztMount Carmel Health SystemComment on above:Performed By: #### 5646104, 80542623, 1322737, 1003459 #### [facility] [address], [place] [address]Kxed nitrogen [Mass/Vol]34 mg/dLHigh5-21Mount Carmel Health SystemComment on above:Performed By: #### 9722990, 28890460, 8933008, 7701082 #### [facility] [address], [place] [address]Vpiw nitrogen/Creatinine [Mass ratio]21 No EnutcSein65-57AbishwMount Carmel Health SystemComment on above:Performed By: #### 0976276, 46111857, 5195402, 7659339 #### [facility] [address], [place] [address]ACB w/ Auto Diffon 37-78-7069Grcnaddwyff distribution width (RBC) [Ratio]13.0 %Ovljjr38.9-14.2FThe Jewish HospitalComment on above: Performed By: #### 9565028, 28240695, 8871763, 1772198 #### [facility] [address], [place] [address]Dzrkrrsavi (Bld) [Volume fraction]32.4 %Low34.0-46.0[facility] Health SystemComment on above:Performed By: #### 0235846, 67524413, 6110965, 7233917 #### [facility] [address] [place] [address]Ludtoiwlei (Bld) [Mass/Vol]11.2 g/dLLow12.0-16.0[facility] Health SystemComment on above:Performed By: #### 6047473, 43714695, 4354500, 4657083 #### [facility] [address] [place] [address]RAR (RBC) [Entitic mass]29.6 fbYhixuu30.0-34.0[facility] Health SystemComment on above:Performed By: #### 4913379, 63356033, 3527923, 2762424 #### [facility] [address] [place] [address]AKKJ (RBC) [Mass/Vol]34.6 g/mRGhhteq87.4-36.0[facility] SystemComment on above:Performed By: #### 4462827, 99399049, 4531103, 5796932 #### [facility] [address] [place] [address]AQH (RBC) [Entitic vol]85.5 pRPjdntr60.0-100.0[facility] Health SystemComment on above:Performed By: #### 6576103, 04535083, 5439724, 2578246 #### [facility] [address] [place] [address]Nrpkhthy mean volume (Bld) [Entitic vol]8.4 fLNormal6.4-10.8 [facility] SystemComment on above:Performed By: #### 4372250, 77762269, 6382051, 7341619 #### [facility] [address] [place] [address]Skimynxya (Bld) [#/Vol]242.0 E9/BXfsxby370.0-500.0[facility] Health SystemComment on above:Performed By: #### 7293348, 34886294, 9486699, 5472076 #### [facility] [address], [place] [address]YXT (Bld) [#/Vol]3.8 E12/LLow4.3-5.9[facility] Comment on above:Performed By: #### 9982278, 42993958, 8778411, 3031007 #### [facility] [address], [place] [address]AOP corrected for nucl RBC Auto (Bld) [#/Vol]10.5 E9/LNormal 4.0-11.0[facility] Health SystemComment on above:Performed By: #### 1686250, 44117488, 4097421, 3107233 #### [facility] [address], [place] [address]Drjwfojpr Glucose POCon 38-10-0638Zlevdps [Mass/Vol]84 mg/dL Qevdym42-61MvbjehMount Carmel Health SystemComment on above:Result Comment: Repeat TestPerformed By: #### [id number] #### [facility] [address], [place] [address]Gezymih [Mass/Vol]88 mg/fGWwdyle55-79FjnefdMount Carmel Health SystemComment on above:Result Comment: Repeat TestPerformed By: #### [id number] #### [facility] [address], [place] [address]Xggsqa Summary.on 95-08-0004Mdpnui Summary.CODING DATE: 05/01/2020 FINAL [facility] STATUS: Home (Routine DC) PAYOR: Medicare [...] Gabriela [place] CphT Date Saved: 05/01/2020 08:36 amNOhio State East HospitalCoding Summary. CODING DATE: 04/25/2020 [facility] STATUS: Home (Routine DC) PAYOR: Medicare [...] Gabriela [place] CphT Date Saved: 04/25/2020 04:17 pmNOhio State East HospitalConsent for Treatmenton 20-14-8891Mbspozd for Treatment [id number]#1.00CD:127NormCentervilleConsent for [id number]#1.00CD:127 [facility] CenterH&P Updateon 05-01-2020H&P Update [id number]#1.00CD:127NoSelect Medical [facility]Health Rehabilitation HospitalMain OR PACU I Recordon 51-50-1656Fxux OR PACU I RecordPACU Phase I Document Type FT Summary Primary Physician: David Talamantes DO Finalized Date/Time: 05/01/20 18:04:55 Pt. Name: CLAUDIA ESTRELLA/Sex: 1950 Female Med Rec #: [id number] Physician: David Talamantes DO Financial #: [id number] Pt. Type: Sharonda Room/Bed: [place] [address] Admit/Disch: 05/01/20 11:43:14 - Institution: Case Times [...] Signed By: Ju Bates RN 05/01/20 18:04NoBlayne [facility] HospitalMain OR PACU II Recordon 16-48-1754Rntd OR PACU II RecordPACU Phase II Document Type FT Summary Primary Physician: David Talamantes DO Finalized Date/Time: 05/01/20 20:09:08 Pt. Name: SAMEERCLAUDIA/Sex: 1950 Female Med Rec #: [id number] Physician: David Talamantes DO Financial #: [id number] Pt. Type: O Room/Bed: 06 Admit/Disch: 05/01/20 [...] Signatures Signed By: Yessy Curran RN 05/01/20 20:09NoSelect Medical [facility] Rehabilitation HospitalMain OR Preoperative Recordon 94-15-2518Qwmz OR Preoperative RecordPreOp Document Type FT Summary Primary Physician: David Talamantes DO Finalized Date/Time: 05/01/20 14:45:06 Pt. Name: CLAUDIA ESTRELLA/Sex: 1950 Female Med Rec #: [id number] Physician: David Talamantes DO Financial #: [id number] Pt. Type: A Room/Bed: [place] [address] Admit/Disch: 05/01/20 11:43:14 - Institution: Case Times [...] Signatures Signed By: Viky Hernández RN 05/01/20 14:45NoLakeHealth TriPoint Medical Centeritor Recordon 77-44-0910Pvykzfb [id number]#1.00CD:127 [facility] Record [id number]#1.00CD:127NormalSouthern [facility] Center Radiologyon 34-60-5476Kiyrwfa Radiology [id number]#1.00CD:127Jorge L [facility] HospitalOutsskyline medical center[facility] Recordson 61-93-4735Ptzcrzl Records [id number]#1.00CD:127[facility] CenterProgress Note-Nurseon 91-42-1405Quecxwrq Note-NurseAt 1653--Gisela poct stated she needed a nurse in [place] 12 stat. This nurse arrived to room. [...] 1829--Attempted to call Dr. Talamantes--[facility]--This nurse spoke with Dr. Carter (avionics systems repairer physician), informed Dr. Carter reason for admission and patient's room number. Dr. Aldridge at bedside at 1705--Physician looked at patient EKG strip that was printed.[facility] CenterProgress Note-Mbwoh5671: pt. medicated with 0.4mg Dilaudid per PACU [...] Krishnamurthy. pts. dtr. also at bedside and updated.[facility] CenterTroponin 0 Hr.on 68-17-8622Favsdyat I.cardiac [Mass/Vol]4.10 pg/mLLow10.10-27.10[facility] Health SystemComment on above:Result Comment: The 95% CI (Confidence Interval) PPV (Positive Predictive Value) for myocardial infarction in females is 38 pg/mL, in males 51 pg/mL. The results should be used in conjunction with clinical conditions of myocardial infarction. (Access High Sensitivity Troponin I Instructions For Use, Wilfrido Jose, January 2018)Performed By: #### [id number] #### Jabier [facility] [address], [place] [address]ePFGns 79-38-1261GOL/1.73 sq M.predicted among blacks MDRD (S/P/Bld) [Vol rate/Area]39 mL/min/1.73 m2Low>=59[facility] Comment on above:Order Comment: Order added by Discern Expert.Result Comment: eGFR is race adjusted. AA=.Performed By: #### [id number], 80059464, 7338777, 3625741 #### [facility] [address], [place] [address]JLU/1.73 sq M.predicted among non-blacks MDRD (S/P/Bld) [Vol rate/Area]32 mL/min/1.73 m2Low>=59[facility] Health SystemComment on above: Order Comment: Order added by Discern Expert.Result Comment: Chronic kidney disease could be indicated at eGFR's of less than 60 mL/min/1.73m2. Kidney failure is indicated at less than 15 mL/min/1.73m2.Performed By: #### 0565674, 70837026, 0732366, 3497941 #### [facility] [address], [place] [address]Mgkkvl Summary.on 73-94-3429Puhhgg Summary.CODING DATE: 04/28/2020 FINAL [facility]SC STATUS: Home (Routine DC) PAYOR: [...] Gabriela [place] CphT Date Saved: 04/28/2020 09:19 amNormalMount Carmel Health SystemOutpatient Surgery Discharge Instructionon 54-40-3603Covazdjwmj Surgery Discharge Instruction [address] [address] Patient Discharge Instructions PERSON INFORMATION Name: CLAUDIA [...] Follow up: With: Address: When: David Talamantes [address] [place] [address] Business (1) Comments: Keep scheduled appointment Type Location Start Finish State Surgery [facility] 05/01/2020 2:15 PM 05/01/2020 2:55 PM Confirmed Pharmacy Information: Thank you for choosing [facility] HERE ARE THE MEDICATION CHANGES [...] tab Oral Daily. PATIENT EDUCATION INFORMATION Instructions: [place], [place] [facility] DISCHARGE INSTRUCTIONS: KNEE ARTHROSCOPY [...] is the result of (more content not included)...[facility] CenterConsent for Procedure/Surgeryon 27-79-2353Ntoybqn for Procedure/[id number]#1.00CD:127Normal [facility] SystemOutside Recordson 77-18-6024Dilwwtf Records [id number]#1.00CD:127[facility] CenterPriority Order-Trina 44-71-8769Tabdfkfh Order-STATCommentInvalid Interpretation CodeMount Carmel Health SystemComment on above:Result Comment: Received Performed at: [facility] [address] [place] [id number] MD Garrison AnaghPerformed By: #### [id number] #### [facility] [address], [place] [address]OYRK-FiT-6, NAAon 89-85-1982FMCA-CoV-2 (COVID-19) RNA JAYASHREE+probe Ql (Resp)Not detectedInvalid Interpretation CodeNot DetectedMount Carmel Health SystemComment on above:Result Comment: This nucleic acid amplification test was developed and its performance characteristics determined by [employer]. Nucleic acid amplification tests include PCR and [...] detected) result in this assay. Performed at: [facility] [address] [facility] [place] [id number] MD Garrison AnaghPerformed By: #### [id number] #### Jabier [facility] [address], [place] [address]VZ Chest 2 Viewson 41-90-2460NE Chest 2 ViewsExam Date/Time: 04/24/2020 09:34 EDT [...] Matias George M.D. Transcribed by: LUDIN Technologist: RRBNormalMount Carmel Health SystemBUNon 75-79-0130Dnlv nitrogen [Mass/Vol]36 mg/dLHigh5-21[facility] Comment on above:Performed By: #### [id number], 2668354, 4569309, 2643143, 8709794, 7343988 ####[place] [address] [place], [place] [address]MWC w/Indiceson 87-25-2578Ibxfqjhpsxp distribution width (RBC) [Ratio]13.0 %Wdskrw56.9-14.2FThe Jewish HospitalComment on above: Performed By: #### [id number], 4804962, 5145604, 1481556, 5915606, 6782721 ####[address] [address] Hematocrit (Bld) [Volume fraction]34.1 %Vvtwau57.0-46.0[facility] SystemComment on above:Performed By: #### [id number], 9427953, 8513172, 9219851, 4801479, 9067031 ####[facility] [address] [place] [address]Ooiobignvn (Bld) [Mass/Vol]11.6 g/dLLow12.0-16.0[facility] SystemComment on above:Performed By: #### [id number], 6438184, 6168248, 9847338, 1249209, 0923951 ####[address] [address]VWX (RBC) [Entitic mass]29.5 dfIaiipt29.0-34.0[facility] SystemComment on above:Performed By: #### [id number], 3025142, 0381342, 2540147, 1626192, 8672812 ####[facility] [address] [place], [place] [address]TLJT (RBC) [Mass/Vol]34.1 g/uJUcsdtj37.4-36.0[facility] SystemComment on above:Performed By: #### [id number], 8557675, 8459419, 5356849, 0632900, 3103263 ####[address] [address]JDX (RBC) [Entitic vol]86.5 rVSmwwzl05.0-100.0[facility] SystemComment on above:Performed By: #### 41933824, 8358279, 8666523, 6570305, 0539547, 3234876 ####[address] [address]Mwlokcue mean volume (Bld) [Entitic vol]9.4 fLNormal6.4-10.8 [facility] SystemComment on above:Performed By: #### 16256713, 1732809, 0366239, 7274105, 1085095, 0197149 ####[address] [address]Yuockodns (Bld) [#/Vol]246.0 E9/L Qcpphh924.0-500.0[facility] SystemComment on above:Performed By: #### 20455755, 1290250, 3492248, 1344134, 6766217, 8053419 ####[address] [address]TVM (Bld) [#/Vol]3.9 E12/LLow 4.3-5.9[facility] SystemComment on above:Performed By: #### 21135875, 2520661, 3052312, 7451278, 6648218, 7043717 ####[address] [address]WET corrected for nucl RBC Auto (Bld) [#/Vol]10.0 E9/LNormal4.0-11.0[facility] SystemComment on above: Performed By: #### 11927466, 9209628, 4730984, 5588414, 3747818, 3529482 ####[address] [address] Consent for Treatmenton 28-03-4351Yhukbfl for Treatment [id number]#1.00CD:127NormalMount Carmel Health SystemCreatinineon 66-41-7634Siobugsvpo [Mass/Vol]1.6 mg/dLHigh0.5-1.3FThe Jewish HospitalComment on above:Performed By: #### [id number], 9977070, 1541711, 5863073, 5480117, 6548042 ####[facility] [address] [place], [place] [address]Cvv Fastingon 89-14-0410Jfdsxzd [Mass/Vol]81 mg/dL Pbxqah42-39CgrxnzMount Carmel Health SystemComment on above:Performed By: #### 58215458, 3987648, 5826674, 6519154, 5049954, 2400364 ####[facility] [address] [place], [place] [address]Pbhwusw 19-31-1622Xoeli gap [Moles/Vol]13 mmol/LNormal6-16[facility] Health SystemComment on above: Performed By: #### 56293546, 1691182, 6885711, 6222223, 2942841, 7938282 ####[address] [place] [address] Chloride [Moles/Vol]103 mmol/ETuhjzp463-011EeodsxMount Carmel Health SystemComment on above:Performed By: #### 54086180, 4662915, 2015682, 9005319, 7371374, 4835039 ####[facility] [address] [place], [place] [address]RD2 [Moles/Vol]26 mmol/NHpelub68-95EzhfjxMount Carmel Health SystemComment on above: Performed By: #### 54671925, 9529972, 0974995, 5747261, 8256237, 8161234 ####[facility] [address] [place] [address] Potassium [Moles/Vol]3.9 mmol/LNormal3.5-5.3FThe Jewish HospitalComment on above:Performed By: #### 07045927, 7436879, 4689895, 8203935, 0208398, 4437620 ####Jabier [facility] [address] [place], [place] [address]Qntava [Moles/Vol]138 mmol/VPxtpqu137-111NhrnujMount Carmel Health SystemComment on above:Performed By: #### 62535719, 5317815, 4607124, 2415312, 8494127, 5687442 ####[place]ene [facility] [address] [place], [place] [address]Ebjtiyfvu Orderon 86-61-1304Gjnexuxqc Order [id number]#1.00CD:127NormalMount Carmel Health SystemeGFRon 55-47-6872HDY/1.73 sq M.predicted among blacks MDRD (S/P/Bld) [Vol rate/Area]39 mL/min/1.73 m2Low>=59[facility] Health SystemComment on above: Order Comment: Order added by Discern Expert.Result Comment: eGFR is race adjusted. AA=.Performed By: #### 99133160, 7298572, 9739235, 2082532, 0131703, 9118292 ####Jabier [facility] [address] [place], [place] [address]MUQ/1.73 sq M.predicted among non-blacks MDRD (S/P/Bld) [Vol rate/Area]32 mL/min/1.73 m2Low>=59[facility] Health SystemComment on above: Order Comment: Order added by Discern Expert.Result Comment: Chronic kidney disease could be indicated at eGFR's of less than 60 mL/min/1.73m2. Kidney failure is indicated at less than 15 mL/min/1.73m2.Performed By: #### 22462125, 3259704, 4660126, 7509923, 7234342, 7330128 ####[place]ene [facility] [address] [place], [place] [address]Doxsphdff Orderon 29-91-0641Dpvygunvx [id number]#1.00CD:[address] [place], [place] [address]Physician Orderon 89-89-3436Kywltufok Order [id number]#1.00CD:[address] [place] [address] Vital Signs Date TimeVital SignValuePerforming UqqfrntplObwaylhb03-24-7580 11:32-0400Body lyvczd764.32 cmDaniel Perdomo DO Work Phone: 1(412)608-[address] [place], [place] [address]10-21-2025 11:32-0400 Body mass index (BMI) [Ratio]26.1 kg/b3Ymlzzr Perdomo DO Work Phone: [phone])[address]10-21-2025 11:32-0400 Body jxngauqooth42.3 [degF]John Perdomo DO Work Phone: 1(147)446-[address] [place], [place] [address]10-21-2025 11:32-0400 Body nlovbd68.75 kgDaniel Perdomo DO Work Phone: 3(129)319-[address] [place], [place] [address]10-21-2025 11:32-0400 Diastolic blood ioefsfvg12 mm[Hg]John Perdomo DO Work Phone: 4(373)507-[address] [place], [place] [address]10-21-2025 11:32-0400 Heart rate76 /minDaniel Perdomo DO Work Phone: 7(783)413-[address] [place], [place] [address]10-21-2025 11:32-0400 Respiratory rate18 /minDaniel Perdomo DO Work Phone: 5(004)982-[address] [place], [place] [address]10-21-2025 11:32-0400 SaO2% (BldA) [Mass fraction]93 %John Perdomo DO Work Phone: 8(311)365-[address] [place], [place] [address]110-21-2025 11:32-0400 Systolic blood mm[Hg]John Perdomo DO Work Phone: [facility]07-30-2025 11:37-0400 Body tdktom166.32 cmDaniel Perdomo DO Work Phone: [facility]07-30-2025 11:37-0400 Body mass index (BMI) [Ratio]26.5 kg/s7Vxdxdr Perdomo DO Work Phone: [facility]07-30-2025 11:37-0400 Body gqwfwe81.6 kgDaniel Perdomo DO Work Phone: 2(792)241-[address] [place], [place] 63[address]107-30-2025 11:37-0400 Diastolic blood ubzqekyg46 mm[Hg]John Perdomo DO Work Phone: 9(556)634-[address] [place], [place] 63[address]107-30-2025 11:37-0400 Heart rate72 /minDaniel Perdomo DO Work Phone: 8(491)769-[address] [place], [place] [address]107-30-2025 11:37-0400 Respiratory rate18 /minDaniel Perdomo DO Work Phone: 4(383)904-[address] [place], [place] [address]107-30-2025 11:37-0400 SaO2% (BldA) [Mass fraction]95 %John Perdomo DO Work Phone: 3(901)658-[address] [place], [place] [address]107-30-2025 11:37-0400 Systolic blood kqpazkob828 mm[Hg]John Perdomo DO Work Phone: [facility]03-04-2025 15:36-0500 Body ydxzvn066.32 cmJ.[facility]. [facility]03-04-2025 15:36-0500Body mass index (BMI) [Ratio]25.6 kg/m1KhefnrsaqJ.W. Ruby Memorial Hospital03-04-2025 15:36-0500Body ibsnhgblcvw73.3 [degF][facility]03-04-2025 15:36-0500Body .56 kgJ.[facility]. [facility]03-04-2025 15:36-0500Diastolic blood amuxtklh33 mm[Hg][facility] 09-03-2024 15:36-0500Heart rate73 /[facility] 09-03-2024 15:36-0500Respiratory rate18 /minJ.[facility]. [facility] 09-03-2024 15:36-4385AmS0% (BldA) [Mass fraction]95 %[facility]03-04-2025 15:36-0500Systolic blood ryikbdrh521 mm[Hg][facility]11-11-2024 15:30-0500Body .32 cmJ.[facility]. [facility]11-11-2024 15:30-0500Body mass index (BMI) [Ratio]27.1 kg/m2 [facility]11-11-2024 15:30-0500Body dzkjngcfafu99.5 [degF][facility]11-11-2024 15:30-0500Body pconhz39.96 kg [facility]11-11-2024 15:30-0500Diastolic blood loyizzbr62 mm[Hg][facility]11-11-2024 15:30-0500Heart rate72 /min [facility]11-11-2024 15:30-0500Respiratory rate16 /min [facility]11-11-2024 15:30-7927PaU6% (BldA) [Mass fraction]95 %[facility]11-11-2024 15:30-0500Systolic blood tazipfbh113 mm[Hg][facility]07-08-2024 13:03-0400 Body kkvoao842.32 cmJ.W. [facility]07-08-2024 13:03-0400Body mass index (BMI) [Ratio]26.1 kg/m3KeoiunnbbJ.W. [facility] Hospital07-08-2024 13:03-0400Body qqgiyldydmm33.6 [degF][facility]07-08-2024 13:03-0400Body gayums94.75 kgJ.W. [facility]07-08-2024 13:03-0400Diastolic blood noatkciy47 mm[Hg][facility] 01-08-2024 13:03-0400Heart rate69 /[facility] 01-08-2024 13:03-0400Respiratory rate16 /[facility] 01-08-2024 13:03-2009MtD0% (BldA) [Mass fraction]96 %[facility]07-08-2024 13:03-0400Systolic blood vkywzkja472 mm[Hg][facility]03-25-2024 15:52-0400Body revfkk20.74 kgJ.W. [facility]03-25-2024 15:52-0400Diastolic blood mm[Hg][facility]03-25-2024 15:52-0400Heart rate65 /[facility]03-25-2024 15:52-0400Systolic blood evnbnoag009 mm[Hg][facility]11-28-2023 15:40-0500Body ultrvv268.32 cmAbdul Mary Grace Other [facility] Other 11-28-2023 15:40-0500Body mass index (BMI) [Ratio] 26.92 kg/c9Qcdgw Mary Grace Other [facility] Other 11-28-2023 15:40-0500Body fsoxzylhlkf04 [degF][place] Mary Grace Other [facility] Other 11-28-2023 15:40-0500Body .42 kgAbdul Mary Grace Other [facility] Other 11-28-2023 15:40-0500Diastolic blood uppasdqf24 mm[Hg] [place] Mary Grace Other [facility] Other 11-28-2023 15:40-0500Respiratory rate18 /minAbdul Mary Grace Other [facility] Other 11-28-2023 15:40-1685SqR3% (BldA) [Mass fraction]97 % [place] Mary Grace Other [facility] Other 11-28-2023 15:40-0500Systolic blood pysghuhm087 mm[Hg] [place] Mary Grace Other [facility] Other 07-31-2023 15:40-0400Body xjijwq338.32 cmAbdul Mary Grace Other [facility] Other 07-31-2023 15:40-0400Body mass index (BMI) [Ratio] 26.83 kg/s3Fgzwx Mary Grace Other [facility] Other 07-31-2023 15:40-0400Body wzkkhuvffhv74.7 [degF][place] Mary Grace Other [facility] Other 07-31-2023 15:40-0400Body ilohxs30.24 kgAbdul Mary Grace Other [facility] Other 07-31-2023 15:40-0400Diastolic blood asoqbkhu00 mm[Hg] [place] Mary Grace Other [facility] Other 07-31-2023 15:40-0400Respiratory rate18 /minAbdul Mary Grace Other [facility] Other 07-31-2023 15:40-8821VhE7% (BldA) [Mass fraction]98 % [place] Mary Grace Other [facility] Other 07-31-2023 15:40-0400Systolic blood dkmxntex646 mm[Hg] [place] Mary Grace Other [facility] Other 02-28-2023 14:40-0500Body swtzur856.32 cmAbdul Mary Grace Other [employer] Other 02-28-2023 14:40-0500Body mass index (BMI) [Ratio] 26.29 kg/m7Ootma Mary Grace Other [employer] Other 02-28-2023 14:40-0500Body iiaetbzqgpo96.6 [degF][place] Mary Grace Other [employer] Other 02-28-2023 14:40-0500Body jsaruz63.06 kgAbdul Mary Grace Other [employer] Other 02-28-2023 14:40-0500Diastolic blood mm[Hg] [place] Mary Grace Other [employer] Other 02-28-2023 14:40-0500Respiratory rate18 /minAbdul Mary Grace Other [employer] Other 02-28-2023 14:40-3223LvK1% (BldA) [Mass fraction]96 % [place] Mary Grace Other [facility] Other 02-28-2023 14:40-0500Systolic blood mm[Hg] [place] Mary Grace Other [facility] Other 11-28-2022 11:40-0500Body ziloyz174.32 cmAbdul Mary Grace Other [facility] Other 11-28-2022 11:40-0500Body mass index (BMI) [Ratio] 27.25 kg/g7Ctbsn Mary Grace Other [facility] Other 11-28-2022 11:40-0500Body szahlsvtaib41.2 [degF][place] Mary Grace Other [facility] Other 11-28-2022 11:40-0500Body pdtuxi07.15 kgAbdul Mary Grace Other [facility] Other 11-28-2022 11:40-0500Diastolic blood xqgmnukb02 mm[Hg] [place] Mary Grace Other [facility] Other 11-28-2022 11:40-6141MgM2% (BldA) [Mass fraction]97 % [place] Mary Grace Other [facility] Other 11-28-2022 11:40-0500Systolic blood ozseqvnb687 mm[Hg] [place] Mary Grace Other [facility] Other 07-28-2022 12:20-0400Body ivwxet551.32 cmAbdul Mary Grace Other [facility] Other 07-28-2022 12:20-0400Body mass index (BMI) [Ratio] 26.83 kg/r3Rdsqa Mary Grace Other [facility] Other 07-28-2022 12:20-0400Body [degF][place] Mary Grace Other [employer] Other 07-28-2022 12:20-0400Body osafip42.24 kgAbdul Mary Grace Other [employer] Other 07-28-2022 12:20-0400Diastolic blood jagttwit31 mm[Hg] [place] Mary Grace Other [employer] Other 07-28-2022 12:20-0400Respiratory rate18 /minAbdul Mary Grace Other [employer] Other 07-28-2022 12:20-7326VsU3% (BldA) [Mass fraction]96 % [place] Mary Grace Other [employer] Other 07-28-2022 12:20-0400Systolic blood uybocozp682 mm[Hg] [place] Mary Grace Other [employer] Other 03-21-2022 16:00-0400Body tiywfn554.32 cmAbdul Mary Grace Other [employer] Other 03-21-2022 16:00-0400Body mass index (BMI) [Ratio] 27.42 kg/t0Ndzop Mary Grace Other [employer] Other 03-21-2022 16:00-0400Body ajrkdtrrpuc34.6 [degF][place] Mary Grace Other [employer] Other 03-21-2022 16:00-0400Body .51 kgAbdul Mary Grace Other [facility] Other 03-21-2022 16:00-0400Diastolic blood bwxcixtq66 mm[Hg] [place] Mary Grace Other [facility] Other 03-21-2022 16:00-0400Respiratory rate18 /minAbdul Mary Grace Other [facility] Other [id number] 16:00-3082ZyI1% (BldA) [Mass fraction]97 % [place] Mary Grace Other [facility] Other [id number] 16:00-0400Systolic blood mm[Hg] [place] Mary Grace Other [facility] Other 11-16-2021 15:40-0500Body qhhemz038.32 cmAbdul Mary Grace Other [facility] Other 11-16-2021 15:40-0500Body mass index (BMI) [Ratio]26.5 kg/i9Lzyam Mary Grace Other [facility] Other 11-16-2021 15:40-0500Body hjqpboeejvh19.2 [degF][place] Mary Grace Other [facility] Other 11-16-2021 15:40-0500Body xojebi95.52 kgAbdul Mary Grace Other [facility] Other 11-16-2021 15:40-0500Diastolic blood dppmdwbu44 mm[Hg] [place] Mary Grace Other [facility] Other 11-16-2021 15:40-0500Respiratory rate18 /minAbdul Mary Grace Other [employer] Other 11-16-2021 15:40-2843MkN0% (BldA) [Mass fraction]97 % [place] Mary Grace Other [employer] Other 11-16-2021 15:40-0500Systolic blood zuqctbfp766 mm[Hg] [place] Mary Grace Other [employer] Other Encounters Encounter DateEncounter TypeCare ProviderFacilityStart: 35-95-7725Umvnfxxkbo and management of inpatientNICHOLAS [facility] Start: 76-67-6380Annwcmglol and management of inpatientNICHOLAS [facility]: 05-[facility]-2025 End: 34-80-9671Pvszoomlju and management of inpatientGEORGE ANDREASt. Vincent Hospitaltart: 05-01-2025 End: 24-72-0153alkliuwiyqIKEMXBJUniversity Hospitals Elyria Medical Centertart: 04-22-2025 End: 10-68-3171jzwaizpkmcLqlxaq A Herring DO Work Phone: [phone]-Rxwrbilrf Health Neph SandStart: 04-22-2025 End: 57-86-9061Almmvzd encounter procedureGeneva Jenkins MD-[facility] Work Phone: Start: 35-61-7396Vqp-patient / Non-visitGeneva Jenkins MD -[facility] Work Phone: Start: 04-15-2025 End: 45-04-9834ftzhjyxajiTYZUWREUniversity Hospitals Elyria Medical Centertart: 04-07-2025 End: 50-92-6636lzsjdmfpjvYQGFXKCorey Hospital Start: 03-23-2025 End: 21-15-3845CofszaKzypagci D Zahler DO Work Phone: [facility] EyeComment on above:Primary open angle glaucoma (POAG) of both eyes, mild stageStart: 01-29-2025 End: 26-21-0665kcjrkatratXbrxkt A Perdomo DO Work Phone: [facility] Work Phone: Start: 01-29-2025 End: 28-57-6030Gwvbhuc encounter procedureGeneva Jenkins MD-[facility] Nephrology [place] Work Phone: Start: 25-96-8671Raa-patient / Non-visitGeneva Jenkins MD -[facility] Work Phone: Start: 11-26-2024 End: 85-91-7425Tatobu Tone Teran DO Work Phone: noms OPHTStart: 11-26-2024 End: 65-89-6600Hctknyansley Teran DO Work Phone: noms OPHTStart: 11-26-2024 End: 71-23-2221nbjqnztccmBSAZIBBO D ZAHLERNot AvailableStart: 09-16-2024 End: 73-29-0572bweojiojvoQTNCBI [facility] Start: 09-03-2024 End: 84-40-1070ffaecifgohTldoadkzkMer[facility] Health [facility] Work Phone: Start: 09-03-2024 End: 81-42-0716Imdujxc encounter procedureFiranthony Physician Group-[facility] Work Phone: Start: 22-24-3194Tac-patient / Non-visitFiranthony Physician Group-[facility] Work Phone: Start: 05-15-2024 End: 66-21-7372Fpvzik Loreleimikelidia Hayden Renata DO Work Phone: noms NB OPHTStart: 05-15-2024 End: 78-12-2196Fghgsl Loreleimikelidia Hayden Renata DO Work Phone: noms NB OPHTStart: 05-15-2024 End: 40-03-1280nzcmidhkhdPZYNJFRH D MARVELMEEKNot AvailableStart: 05-13-2024 End: 23-00-8743ogzycaxmykNxzendnsaGrand [facility] Work Phone: Start: 05-13-2024 End: 78-83-0958Inubdcg encounter procedureNov[facility] Nephrology [place] Work Phone: Start: 50-89-2104Tor-patient / Non-visitNovant [facility] Work Phone: Start: 01-08-2024 End: 90-99-3721spupvraaxxWowcuysntMercy Health [facility] Hospital Work Phone: Start: 01-08-2024 End: 39-73-1218Siywbuz encounter procedureNov[facility] Nephrology Work Phone: Start: 05-86-2025Ijr-patient / Non-visitNov[facility] Work Phone: Start: 09-25-2023 End: 01-24-5423gkwfizjuhtUcngskcbiGrand [facility] Work Phone: Start: 09-25-2023 End: 85-82-6307Pjvhnez encounter procedureNov[facility] Nephrology Work Phone: Start: 09-09-2023 End: 29-89-6248Inbqhamvd Result EncounterHilary Margareth Love MD Work Phone: noms External Department UnsolicitedStart: 09-09-2023 End: 08-29-7327Plbamzstc Result EncounterHianat Love MD Work Phone: NOVT External Department UnsolicitedStart: 08-08-2023 End: 70-04-4364qdigeghwogRtkhn Mary Grace Other [facility] [employer] Other Start: 99-72-0203Macsdnvrn encounterAbdul QadirFPG NephrologyStart: 07-11-2023 End: 45-18-4823keghfnlxfhTnclk Mary Grace Other [employer] Other Start: 36-48-4595Scirecrcz encounterAbdul QadirFPG NephrologyStart: 05-30-2023 End: 01-73-8200rydeeootsqOhuct Mary Grace Other [facility] [employer] Other Start: 43-00-4586Lwoydh outpatient visit 25 minutes [place] QadirFPG NephrologyStart: 05-23-2023 End: 52-01-1470codfzxssrfJpxhx Mary Grace Other [employer] [employer] Other Start: 37-08-9490Gocorrhjg encounterAbdul QadirFPG NephrologyStart: 01-30-2023 End: 18-06-3674hbywjeaiytFvlip Mary Grace Other [employer] [employer] Other Start: 48-22-8332Qnromfrsm by computer linkAbdul Mary Grace FPG NephrologyStart: 67-74-2993Lbhvff outpatient visit 25 minutesAbdul QadirFPG NephrologyStart: 10-27-2022 End: 82-46-9812lolxqhhbzmWchys Mary Grace Other [employer] Other Start: 94-57-8765Kxzlcqvwt encounterAbdul QadirFPG NephrologyStart: 10-26-2022 End: 07-10-0638txxrsdasafBO JOHN PERDOMOFacility:J9Rfwlx: 08-30-2022 End: 70-20-2349dbynmemsbaYjimh Mary Grace Other [employer] Other Start: 68-81-4484Xbdocz outpatient visit 25 minutes [place] QadirFPG NephrologyStart: 08-24-2022 End: 64-33-9641ynezgupvatPZ JOHN Mcdonough HERRINGFacility:N1Siidc: 08-23-2022 End: 67-66-9806jpczmcyeuwYTFPN QADIRFacility:F2Pqgay: 06-13-2022 End: 38-93-6734kvmvnzwjmyZN KARTHIK JESSARBELFacility:O6Dmfax: 06-10-2022 End: 67-90-3960tgwfjgkykvMX KARTHIK GABBIELFacility:B7Gjnmr: 06-02-2022 End: 48-37-3808qulurxeomaUA KARTHIK SEOELFacility:T6Wynri: 06-01-2022 End: 63-11-7305vekgdrwxgkEV JOHN Mcdonough HERRINGFacility:H0Nsmgq: 05-30-2022 End: 82-33-3048gyfngoijurDojuf Mary Grace Other [employer] Other Start: 26-24-0587Phrxfz outpatient visit 25 minutes [place] QadirFPG NephrologyStart: 05-27-2022 End: 31-97-4445mgjyrxgmdgZW DANIEL A HERRINGFacility:P9Sarev: 05-23-2022 Telephone encounterAbdul QadirFPG NephrologyStart: 05-23-2022 End: 07-58-9726lkawyrztnyCJ DANIEL A [employer] Other Start: 05-14-2022 End: 66-43-5285wngvpuprlmKGOANAU BOESFacility:B5Ewzsb: 05-12-2022 End: 78-57-0907euhpkhrefqWnesv Mary Grace Other [facility] Other Start: 10-05-4157Vxtbqqzhn encounterAbdul QadirFPG NephrologyStart: 05-11-2022 End: 34-44-0632omlbyokyhzNXTBTSC BOESFacility:P9Whrkm: 03-17-2022 End: 42-47-7186uozbvpmzzcFF DANIEL A HERRINGFacility:T9Odoli: 01-27-2022 End: 89-18-8094voaatbpxphIquef Mary Grace Other [facility] Other Start: 18-12-5112Aefwdi outpatient visit 25 minutes [place] QadirFPG NephrologyStart: 01-21-2022 End: 16-27-1881owxnwgqlidHGAyde PERDOMOFacility:K6Hzaax: 01-17-2022 End: 31-59-4514ymjbokndjfWH DANIEL A HERRINGFacility:F8Uagvl: 01-13-2022 End: 69-45-3590cmfgaoluimJtafj Mary Grace Other [facility] Other Start: 53-23-3111Ofyjigzat encounterAbdul QadirFPG NephrologyStart: 55-70-3227Gncgioqhe encounterAbdul QadirFPG NephrologyStart: 12-16-2021 End: 07-68-6924rcxsstuznvQZ DANIEL A [employer] Other Start: 12-09-2021 End: 53-73-6417vmmdtkhtscSOFPRL HERRINGFacility:UTMCStart: 12-08-2021 End: 35-49-9027nyjnpyfmldOytet Mary Grace Other [facility] Other Start: 45-36-7106Edeeimbgf encounterAbdul QadirFPG NephrologyStart: 12-07-2021 End: 46-17-4895ulskmjxlfsBL DANIEL A HERRINGFacility:Z2Ltjsm: 12-06-2021 End: 80-72-6621hewclmrxtyED JOHN A HERRINGFacility:U4Ftcst: 12-01-2021 End: 33-39-2891fiwmrzndryIZ JOHN A HERRINGFacility:O8Cgurk: 11-19-2021 End: 81-42-9029gvzlfvqpgqSR JOHN A HERRINGFacility:V4Osucd: 11-01-2021 End: 91-00-6870ygxezjyaxjZcutj Mary Grace Other [employer] Other Start: 54-83-4549Jvmdjqgeu by computer linkAbdul Mary Grace [facility] NephrologyStart: 10-28-2021 End: 89-97-5308uxvfxcjbhcGodul Mary Grace Other [facility] [employer] Other Start: 32-54-7153Iusznfsyd encounterAbdul QadirFPG NephrologyStart: 10-13-2021 End: 34-18-1318ghibkkqiekHwgme Mary Grace Other [employer] Other Start: 88-54-0636Zzwjqbnpy by computer linkAbdul Mary Grace [facility] NephrologyStart: 10-06-2021 End: 80-03-9698bpvdrezbeeYvmcy Mary Grace Other [employer] Other Start: 49-60-1071Pwdkiwubi encounterAbdul QadirFPG NephrologyStart: 09-21-2021 End: 57-44-6040qewapyncceDcfyv Mary Grace Other [employer] Other Start: 38-19-0824Zlebewljn encounterAbdul QadirFPG NephrologyStart: 09-20-2021 End: 26-51-1725fbwhzlxkefKxwbd Mary Grace Other [facility] Other Start: 83-50-3021Aflncd outpatient visit 25 minutes [place] QadirFPG NephrologyStart: 08-01-2021 End: 50-20-8304icgfjezngyIdlye Mary Grace Other [employer] Other Start: 95-42-6881Ygmkqjmjv by computer linkAbdul Mary Grace [facility] NephrologyStart: 07-18-2021 End: 78-12-5145mvombiilcvZiagb Mary Grace Other [employer] Other Start: 38-00-0480Ywznouryy by computer linkAbdul Mary Grace [facility] NephrologyStart: 05-18-2021 End: 28-35-4584rdxnxidfkbHlnhm Mary Grace Other [employer] Other Start: 49-49-1583Erlfuz outpatient visit 25 minutes [place] [facility] Procedures DateProcedureProcedure DetailPerforming ClinicianStart: 36-98-1414Atcbin-up visitFollow-upMELINDA TUCKERStart: 02-93-5644Plaqdu field xm uni/bi w/interp extended examJothania Teran DO Work Phone: Start: 11-26-2024 End: 90-94-8328Sxrto medical xm&eval comprhnsv estab pt 1/>Corneal scar, right eyeJothania Teran DO Work Phone: comment on above:Corneal scar, right eye (Primary Dx); Dry eyes; 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 (CMS/HCC); Primary open angle glaucoma (POAG) of both eyes, mild stageStart: 05-15-2024 End: 73-35-2043Deaesfyzaekt ophthalmic imaging optic nerveJothania Teran DO Work Phone: Start: 05-15-2024 End: 84-06-6552Fskii medical xm&eval comprhnsv estab pt 1/>Primary open angle glaucoma (POAG) of both eyes, mild stage (CMS/HCC)Mirta Teran DO Work Phone: comment on above:Primary open angle glaucoma (POAG) of both eyes, mild stage (CMS/HCC) (Primary Dx); 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 (CMS/HCC); Corneal scar, right eye; Dry eyesStart: 27-72-7038Rx soft tissue head & neck real time imge Philip Love MD Work Phone: Plan of Treatment DateCare ActivityDetailAuthorStart: 82-83-5780Uhvntgbg screeningDiabetes: Retinopathy ScreeningNOVT HealthcareStart: 06-04-2025 End: 61-62-6828Zcthcjx encounter sahrgxxro51/03/2025 1:15 PM EST Office Visit [facility] [address] [place] [address] Mirta Teran, [address] [place] [address] [facility] EyeStart: 05-15-2025 Glaucoma screeningDiabetes: Retinopathy ScreeningOGDEN [facility] HealthcareStart: 69-51-3304Movkxxskj vaccinationOGDEN REGIONAL MEDICAL CENTER HealthcareStart: 11-26-2024 End: 29-20-5753Scdurza encounter procedureNOMS NB OPHTComment on above:Arrived Start: 12-48-4240Xknqpubtn vaccinationInfluenza Vaccine (#1)[facility] Start: 81-93-3291Bodtxphhxw A1c measurementDiabetes: Hemoglobin V5NXYIVSoutheast Missouri HospitalStart: 49-29-8741Txlavibwj for malignant neoplasm of breastMammogram [facility] HospitalStart: 12-95-9019Wzusynuaztht Vaccine: 65+ Years (1 of 2 - PCV) Pneumococcal Vaccine: 65+ Years (1 of 2 - PCV)[facility] HealthcareStart: 1970 Urine screening for proteinDiabetes: Urine Protein ScreeningSoutheast Missouri Hospital Start: 33-52-2299Kabepztygjsi Vaccine: 65+ Years (1 of 2 - PCV)Pneumococcal Vaccine: 65+ Years (1 of 2 - PCV)[facility] HealthcareStart: 1951Medicare Annual Wellness (AWV)Medicare Annual Wellness (AWV)[facility] HealthcareStart: 1951 Screening for malignant neoplasm of colonNOVT HealthcareImmunofixation for Urine [facility] HospitalRenal function 1999 panel - Serum or Plasma [facility] HospitalRenal function 1999 panel - Serum or Plasma [facility] HospitalRenal function 1999 panel - Serum or Plasma [facility] HospitalRenal function 1999 panel - Serum or Plasma [facility] HospitalRenal function 1999 panel - Serum or Plasma [facility] HospitalRenal function 1999 panel - Serum or Plasma [facility] Immunizations Immunization DateImmunizationNotesCare ProviderFacilityNEGATED: Highlighted row has not occurred!54-00-3547bxvobwwjl, high dose seasonal, preservative-free Patient ObjectionAbdul Mary Grace Other [facility] [employer] Other Payers DatePayer CategoryPayerPolicy [id number] Health InsuranceMEDICAL MUTUAL [id number] 2016MedicareMEDICARE [id number] [id number] 2.16.840.1.273392.3.57[id number] 2.16.840.1.778325.3.57[id number] 2.16.840.1.972212.3.57[id number] 2.16.840.1.539208.3.57[id number] 2.16.840.1.940241.3.57[id number] 2.16.840.1.683874.3.579.[id number] 2.16.840.1.568202.3.57[id number] 2.16.840.1.457118.3.579.2.69731-48-0483Pihexzx3335593 2.16.840.1.481734.3.579.2.56570-24-5174Fyqxlfo0628853 2.16.840.1.161855.3.579.2.61314-37-3614Tzsimho6952017 2.16.840.1.230420.3.579.[id number] 2.16.840.1.522469.3.57[id number] 2.16.840.1.634856.3.57[id number] 2.16.840.1.158197.3.579.2.62300-50-5122Xdlgzvt0603097 2.16.840.1.749026.3.579.[id number] 2.16.840.1.672108.3.579.2.33543-10-5274Wzjwgcb6552273 2.16.840.1.089844.3.579.2.12527-94-3303Rcvyimy9521135 2.16.840.1.848291.3.579.2.50481-70-5567Lvzlsjp1057793 2.16.840.1.547545.3.579.2.64442-89-9560Afnughd9595357 2.16.840.1.620897.3.579.[id number] 2.16840.1.337901.3.579.2.72304-26-2770Nqwssrt4763211 2.16.840.1.556115.3.57[id number] 2.16.840.1.927768.3.579.2.1259Self-paySelf Pay [id number] [id number] Social History DateTypeDetailFacilityUnknown if ever smokedNosaint mary's [facility] [employer] Other Start: 51-31-3601Dun Assigned At [facility] [employer] Other Start: 11-23-2017 End: 17-42-0172Yhgzcbt smoking status NHISNever smoked tobacco (finding) [facility]: 12-20-0776Tyr Assigned At [facility] Campustart: 05-13-2024 End: 36-73-4020OljOjhlel (finding)[facility]tart: 71-42-7618Rqahduc use and exposureSmokeless tobacco non-userNOMS Healthcare Start: 21-58-4928Fjfyyhoou beverage intakeLifetime non-drinker (finding)[facility] HealthcareStart: 51-00-5809Xxiuxvy of Social functionNOMS HealthcareStart: 35-52-6054Jvbucwl Commentcaffeine intake: 1-2 cups per day soda/pop 1-2 cans per weekNOMS HealthcareStart: 18-94-4530Bakrzi identityIdentifies as female gender (finding)[facility] HealthcareStart: 80-21-1565SplZlguqvQNKX Healthcare Clinical Notes 04-27-2020 to 05-04-2025 Note Date & ErbcRjbhDhlbwsbl62-10-2712 NotePt has DC orders. SS consult for CHF. Trudy RN talked to pt, she's had HF for around 6 years and is confident in managing everything herself.[facility]11-02-2025 Note Attestation signed by Jazzmine Kelsey [...] Faculty, Division of Nephrology, Department of Medicine, [facility]. Nephrology Progress Note Patient [...] and essential hypertension who was admitted to [facility] as a transfer from [facility] on 05/01/2025 after she initially presented with [...] Dose Status allopurinol (Zyloprim) 100 mg tablet [id number] TAKE (more content not included)... [facility]11-02-2025 Note Attestation signed by Luis Carrero [...] Denies chest pain or dyspnea. Discomfort at [facility] site with bruising on right neck. Feels [...] Value Ventricular Rate 74 Atrial Rate 74 CA Interval 168 QRS DURATION 68 QT Interval 410 QTC CALCULATION(BAZETT) 455 P [place] 64 R-[place] 15 T Wave [place] 103 Impression Normal sinus rhythm Abnormal QRS-T [...] Echo (TTE) w/wo Imaging (more content not included)...[facility]11-01-2025 Note05/03/25 1305 Home Oxygen Therapy Evaluation Home Oxygen Therapy No Pulse Oximetry on room air at Rest 92 Pulse Ox on room air while walking 89 Patient Qualification for home oxygen Does not qualify for home oxygen this visit $ Pulse Oximetry Multiple Patient does not qualify for home oxygen this visit.[facility]11-01-2025 Note Attestation signed by Eh Higuera [...] an 75 y.o. female who came from [facility] with prior history of hypertension and diabetes, [...] fever. She was advised to come to [facility] for CHF exacerbation. Subjective The patient [...] heart failure with preserved ejection fraction (HFpEF) ([facility]) Active Problems: Hypertensive disorder Stage 4 chronic kidney disease ([facility]) Type 2 diabetes mellitus ([facility]) Assessment and Plan Acute on chronic [...] mg IV BID, toshia (more content not included)...[facility]11-01-2025 Note Attestation signed by Luis Carrero [...] Denies chest pain or dyspnea. Discomfort at [facility] site with bruising on right neck. Feels [...] Value Ventricular Rate 74 Atrial Rate 74 CA Interval 168 QRS DURATION 68 QT Interval 410 QTC CALCULATION(BAZETT) 455 P [place] 64 R-[place] 15 T Wave [place] 103 Impression Normal sinus rhythm Abnormal QRS-T angle, consider primary T wave abnormality Abnormal ECG When compared with ECG of 14-JUL-2020 06:44, ST no longer elevated in Lateral Nonspecific T wave abnormality now evident in Lateral Confirmed by Chela CARRERO, LUIS Olson (more content not included)...[facility]11-01-2025 NoteCase was discussed with the JOSUE on 05/01/2025. I agree with the history, physical, assessment, and plan of care. I discussed the findings and therapeutic plan. I agree with the documentation, except for any updates below. Shima Francois MDParkview Health Bryan Hospital10-31-2025 Note Attestation signed by Eh Higuera [...] Progress Note - 05/02/2025 2:35 PM; Room: [address] [place] [address] Admission: 05/01/2025 5:55 PM; Length of stay: 1 days Code Status: Full Code Discharge Destination: TBD Discharge planning: TBD Overview Patient is seen for evaluation and management of heart failure exacerbation. Claudia Estrella is an 75 y.o. female who came from [facility] with prior history of hypertension and diabetes, [...] fever. She was advised to come to [facility] for CHF exacerbation. Subjective Patient was seen and examined at bedside. Afebrile, hemodynamically stable, starting well on 2 L per nasal cannula. Patient reports she does not use oxygen at home but believes it will help her with her daily functioning. Patient reports she was recently discharged from [facility] due to a CHF exacerbation. She [...] heart failure with preserved ejection fraction (HFpEF) ([facility]) Active Problems: Hypertensive disorder Stage 4 [...] artery disease vis (more content not included)... [facility]10-31-2025 NoteCase was discussed with the JOSUE on 05/01/2025. I agree with the history, physical, assessment, and plan of care. I discussed the findings and therapeutic plan. I agree with the documentation, except for any updates below. Shima Francois MDUnChillicothe Hospital10-31-2025 NoteMonitor kidney functions Avoid nephrotoxic drugs Appreciate nephrology recommendationsUnChillicothe Hospital 05-02-2025 NoteGlucose management protocol Sliding scale Hypoglycemia managementUnChillicothe Hospital10-31-2025 NoteResume home medicationsUnChillicothe Hospital10-31-2025 NoteStart Bumex 2mg IV BID Weigh patient daily Fluid restriction Cardiology consult NPO at midnight for possible right heart cathUnChillicothe Hospital 05-02-2025 NoteHospital Medicine History and Physical 05/02/2025 12:34 AM THE HOSPITALIST TEAM PREFERS TO USE [employer] ([employer] CHAT FOR NON-URGENT COMMUNICATION 7AM-7PM. IF I DO NOT RESPOND WITHIN 20 MINUTES OR URGENT MATTERS, PLEASE CALL THROUGH THE PRODUCT DESIGN SPECIALIST. FROM 7PM-7AM, PLEASE PAGE [phone](COVR). Chief Complaint SOB History of Present Illness Claudia Estrella is an 75 y.o. female who came from [facility] with prior history of hypertension and diabetes, [...] fever. She was advised to come to [facility] for CHF exacerbation. Review of System [...] heart failure with preserved ejection fraction (HFpEF) ([facility]) Start Bumex 2mg IV BID Weigh patient daily Fluid restriction Cardiology consult NPO at midnight for possible right heart cath Hypertensive disorder Resume home medications Stage 4 chronic kidney disease ([facility]) Monitor kidney functions Avoid nephrotoxic drugs Appreciate nephrology recommendations Type 2 diabetes mellitus ([facility]) Glucose management protocol Sliding scale Hypoglycemia [...] this hospital stay by a member of [facility]. Past Medical History Medical History[1] [...] Resource Strain (CARDIA) D (more content not included)...[facility]10-30-2025 NoteUT Cardiology [facility] Subjective Chief Complaint Patient presents with Follow-up Patient is here today for a 2 week follow up. Patient states she is not doing well, Patient is very SOB. Patient has been unable to eat, and vomiting up her medication. Patient states when she exhales she hears a whistling. Coronary Artery Disease Congestive Heart Failure Hypertension Heart Murmur Hyperlipidemia Shortness of Breath SOB/MCALILSTER increased over the last 3 to 4 [...] herpes simplex Stage 4 chronic kidney disease ([facility]/HCC) Type 2 diabetes mellitus (CMS/HCC) Chronic diastolic [...] heart failure with preserved ejection fraction (HFpEF) ([facility]) Family History Problem Relation Name Age [...] She has ongoing orthopne (more content not included)...[facility]10-14-2025 NoteUT Cardiology - [facility] Subjective Chief Complaint Patient presents with Follow-up Patient is here today for a follow up [facility] admission. Patient states she feels better [...] Rate and Rhythm: No (more content not included)...[facility]10-06-2025 NoteUT Cardiology - [facility] Subjective Claudia Estrella is a 74 [...] warm and dry. Neurologi (more content not included)...[facility] 01-29-2025 Evaluation note* Diagnosis Onset Date [...] diabetic chronic kidney diseaseacuteApril 22, 2025 11:30am [facility] Work Phone: [phone]) 701-973205-27-2025 NoteRight Eye Reliability was poor. Progression has been stable. Foveal threshold was normal. Findings include superior nasal step defect, inferior nasal step defect, central scotoma. Left Eye Reliability was borderline. Progression has been stable. Foveal threshold was normal. Findings include superior arcuate defect, inferior arcuate defect, central scotoma.[facility] HospitalLivjcbqswg07-82-5537 History of Present illness Narrative* Mirta Teran, [...] artificial tears were recommended. documented in this encounterSoutheast Missouri HospitalLdahfeofww82-34-5193 NoteUT Cardiology - [facility] Subjective Claudia Estrlela is a 74 y.o. year old female patient being seen for follow up 6 mo follow up CAD, chronic diastolic heart failure, and hypertension. Had labs last month for nephrology. She only had 1 tablet left of metoprolol (50mg) and took it yesterday. Hasn't had any today. She was told by [facility] that she can't get it until [...] Other Erythromycin Base Hydromorphone (more content not included)...[facility]11-13-2024 Note Right Eye Quality was good. Scan locations included subfoveal. Progression has been stable. Findings include abnormal foveal contour, intraretinal fluid, subretinal fluid. Left Eye Quality was good. Scan locations included subfoveal. Progression has been stable. Findings include abnormal foveal contour. 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 documented in this encounterSoutheast Missouri HospitalGxthrjdhpf32-66-7214 Evaluation note* Encounter Date Diagnosis Assessment Notes [...] has adequate Iron stores. Continue oral iron. [facility] Other 07-31-2023 Evaluation note* Encounter Date Diagnosis [...] has adequate Iron stores. Continue oral iron. [facility] Other 02-28-2023 Evaluation note* Encounter Date Diagnosis [...] past. Will defer this to the PCP. [facility] Other 11-28-2022 Evaluation note* Encounter Date Diagnosis [...] an adequate Iron stores. Continue oral iron. [facility] Other 11-21-2022 Evaluation note* Encounter Date Diagnosis Assessment Notes Treatment Notes Treatment Clinical Notes May, CKD (chronic kidney disease) stage 4, GFR 15-29 ml/min (ICD-10 - N18.4) [facility] Other 07-28-2022 Evaluation note* Encounter Date Diagnosis [...] an adequate Iron stores. Continue oral iron. [facility] Other 03-22-2022 Evaluation note* Encounter Date Diagnosis Assessment Notes Treatment Notes Treatment Clinical Notes Aug, Hypokalemia (ICD-10 - E87.6) [facility] Other 03-21-2022 Evaluation note* Encounter Date Diagnosis [...] an adequate Iron stores. Continue oral iron. [facility] Other 01-16-2022 Evaluation note* Encounter Date Diagnosis Assessment Notes Treatment Notes Treatment Clinical Notes Jul, Hyperuricemia (ICD-10 - E79.0) [facility] Other 11-16-2021 Evaluation note* Encounter Date Diagnosis [...] an adequate Iron stores. Continue oral iron. [facility] Other 11-02-2020 NoteRounds at this time with [...] MURPHY Amor notified Taylor Fisher & Maryan Lopez.[facility] SystemComment on above:Result Comment: Electronically Signed By: Zuleyma Shin RN\.br\Date and Time Signed: 05/04/20 13:53 [id number] NoteBasic Information Cardiology Progress Subjective Cardiology consulted over weekend for chest discomfort post operatively. Her EKG was non-acute and troponin trended negative. She does have a telecommunications project manager and reportedly had stress testing in August [...] mg/dL High (05/04/20 12:12:00) POC Device SN: [id number] (05/04/20 12:12:00) POC Username: NESHA COTA (05/04/20 [...] prefers all testing to be performed at [facility]. Faxed notes to her primary telecommunications project manager's office, Dr Fish. Attempted to schedule stress testing with [facility]. Ordered: EC Stress Echo Complete w/ Contrast 2. Hypertension (I10: Essential (primary) hypertension) Continue current medications and follow up with primary telecommunications project manager on discharge. 3. Diabetes (E11.9: Type 2 [...] discuss this management further with her primary telecommunications project manager, but agreeable to starting statin for now. Patient is offered in-patient stress echocardiogram but declines as she wants to be discharged. She is offered out patient stress testing at [facility] tomorrow am and she prefers to have this done at [facility]. Per Central Scheduling at [facility], Dobutamine Stress Echo's are not performed at the facility. She will have close FU with Dr Fish to move forward with testing. D/W Dr Michel. Faxed info from [facility] Hospital stay to her primary telecommunications project manager. Attestation Discussed patient findings and plan of [...] tab(s), Oral, Bedtime saturnino (more content not included)...[facility] SystemComment on above: Result Comment: Electronically Signed By: Trudy SUAZO CNP\.br\Date and Time Signed: 05/04/20 13:15 EST\.br\Electronically Co-Signed By: Jay Jay Ramírez MD\.br\Date and Time Co-Signed: 05/04/20 13:19 [id number] NoteIV removed. nurse chief service observer emptied. patient and patients daughter verbalized understanding of discharge teaching. patient refused flu vaccination. patient did not verbalize any questions or concerns atthis time.[facility]11-02-2020 Note Admission Information Admitting Physician [...] another day versus following up with her telecommunications project manager and she has opted to do the latter. This is reasonable as she is chest pain-free at rest as well as on exertion. Patient is already on lisinopril, metoprolol, aspirin. Lipitor 20 mg was added for further risk reduction. She will follow-up with her primary telecommunications project manager Dr. Fish. Regarding her recent Ortho surgery she will do weightbearing activity as tolerated and use crutchesfor assistance with ambulation. Dr. Kushal Michel Hospitalist This report was transcribed using voice recognition software. Every effort was made to ensure accuracy, however, inadvertently computerized manufacturing plant technician mistakes may be present. Significant Findings [...] pain) Ordered: Hospital Discharge Day 30 Min/Less 22493 2. Hypertension (I10: Essential (primary) hypertension) Ordered: Hospital Discharge Day 30 Min/Less 85988 3. Diabetes (E11.9: Type 2 diabetes mellitus without complications) Ordered: atorvastatin, 20 mg = 1 tab(s), Oral, Bedtime, # 30 tab(s), Refills(s) 1, Pharmacy: [facility]/pharmacy #[id number], 141.5, cm, 04/24/20 13:16:00 EDT, Height/Length Dosing, 69, kg, 05/02/20 5:50:00 EDT, Weight Dosing Hospital Discharge Day 30 Min/Less 86365 4. Acute medial meniscus tear of left knee (S83.242A: Other tear of medial meniscus, current injury, left knee, initial encounter) Ordered: Hospital Discharge Day 30 Min/Less 36998 5. Localized osteoarthritis of left knee (M17.12: Unilateral primary osteoarthritis, left knee) Ordered: Hospital Discharge Day 30 Min/Less 70239 6. No contraindication to deep vein thrombosis (DVT) prophylaxis (Z78.9: Other specified health status) Ordered: Hospital Discharge Day 30 Min/Less 78991 Bruit (R09.89: Other specified symptoms and signs [...] With When Contact Information Follow up with Compounding Assistant Within 1 week Additional Instructions: JOHN PERDOMO [address] [place] [address]- [employer] (1) Additional Instructions: David Talamantes [address] [place] [address]- [employer] (1) Additional Instructions: Keep scheduled (more content not included)...[facility] SystemComment on above:Result Comment: Electronically Signed By: RAMIREZ VIGIL, Kushal\.br\Date and Time Signed: 05/04/20 12:[id number]Dr[address] Amir rounded with patient earlier. CRM [...] time. Anticipated discharge 05/04/2020 home. CRM to follow.[facility] SystemComment on above:Result Comment: Electronically Signed By: Ab WU, Terri Ramirez\.br\Date and Time Signed: 05/02/20 10:06 [id number] NoteReason for Consultation Chest pain postoperatively History of Present Illness Mrs. Estrella is a very pleasant 70-year-old diabetic female with hypertension, unknown cholesterol, previously seen by telecommunications project manager Dr. Fish in September 2019 for what [...] testing apparently took place in a private telecommunications project manager office, so I am unsure whether we [...] test in September 2019 at a private telecommunications project manager 's office, reportedly LV dysfunction per thepatient, [...] she undergo a dobutami (more content not included)...[facility] SystemComment on above:Result Comment: Electronically Signed By: Eleuterio VIGIL, John Marin.rashmi\Date and Time Signed: 05/02/20 08:35 [id number] NoteBasic Information Accompanied by: Family member Source of History: Self Present at Bedside: Family member Referral Source: Recovery room History Limitation: None Chief Complaint chest pain History of Present Illness Pt is a 70 F PMH HTN, HLD admitted from PACU. pt had a repair of a left medial meniscus tear with Dr. Talamantes of [facility]. Pt was in PACU recovering, had [...] 84 mg/dL (05/01/20 16:07:00) POC Device SN: [id number] (05/01/20 16:07:00) POC Username: ALEXIA HALL (05/01/20 16:07:00) Diagnostic Results EKG NSR [address]-T wave changes Images No qualifying data available. Assessment/Plan 1. Other chest pain (R07.89: Other chest pain) - possible ACS, risk factors include DM, HTN, obesity - telemetry, troponin - ASA, fasting lipid profile - consult [facility] cardiology 2. Hypertension (I10: Essential (primary) hypertension) [...] acetaminophen 325 mg Tab (more content not included)...[facility] SystemComment on above:Result Comment: Electronically Signed By: JUN VIGIL, Nhung\.br\Date and Time Signed: 05/01/20 18:30 [id number] Note [id number]:127[facility] Evaluation noteNo [employer] [place] Other Evaluation note* Diagnosis Onset Date Resolution Status Anemia of renal disease acuteCKD (chronic kidney disease) stage 4, GFR 15-29 ml/minacuteHyperlipidemia [id number]zbuvplnnpqtwgktDkhrkqemqja hematuriaacuteSecondary hyperparathyroidismacuteType 2 diabetes mellitus with diabetic chronic kidney diseaseSub[facility] Work Phone: Evaluation note* Diagnosis Onset [...] diabetic chronic kidney diseaseacuteMay 13, 2024 3:17pm [facility] Work Phone: Evaluation note* Diagnosis Primary open angle glaucoma (POAG) of both eyes, mild stage (CMS/HCC)- Primary 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 (CMS/HCC) Corneal scar, right eye Unspecified corneal opacity Dry eyes Unspecified tear film insufficiency documented in this encounter [facility] HealthcareEvaluation noteNo assessment information availableTrihealth Mccull[facility] Work Phone: Evaluation note* Diagnosis [...] with diabetic chronic kidney diseaseacuteJuly 2024 11:35am [facility] Work Phone: Evaluation note* Diagnosis Primary open angle glaucoma (POAG) of both eyes, mild stage documented in this encounter [facility] HealthcareHistory general Narrative - Reported* Type Description Date Medical History hypertension Medical HistoryDiabetic -Medical HistoryosteoporosisMedical Historyherpes of the eyeMedical HistoryHTNMedical Historychronic kidney disease, stage 3Medical HistoryosteopeniaMedical HistorygoiterMedical Historyprolapsed cervical intervertebral discMedical HistoryDM 2Medical HistoryGLAUCOMASurgical History appendixSurgical Historyeyelid ijugrvz04/2018Surgical History2 c-sectionSurgical HistoryappendectomySurgical HistoryC-section x 2Surgical Historyovarian cyst removalSurgical HistorycholecystectomySurgical Historygall bladder removal Surgical Historythyroid bx x 2Surgical HistoryRT foot surgerySurgical Historyr/o ovarian cystSurgical Historydouble heart bypass07/13/2020urgical Historycataract surgery11/2019Surgical Historyarthroscopic surgery of left knee05/01/20urgical HistorycycstocopySurgical Historyright eye rutrioa96/2021Hospitalization History see above Advanced Patient Care Other History general Narrative - Reported* Type Description Date Medical History hypertension Medical HistoryDiabetic -Medical HistoryosteoporosisMedical Historyherpes of the eyeMedical HistoryHTNMedical Historychronic kidney disease, stage 3Medical HistoryosteopeniaMedical HistorygoiterMedical Historyprolapsed cervical intervertebral discMedical HistoryDM 2Medical HistoryGLAUCOMAMedical History COVID 07/31/2021urgical HistoryappendixSurgical Historyeyelid xxcuylo20/2018 Surgical History2 c-sectionSurgical HistoryappendectomySurgical HistoryC-section x 2Surgical Historyovarian cyst removalSurgical HistorycholecystectomySurgical Historygall bladder removalSurgical Historythyroid bx x 2Surgical HistoryRT foot surgerySurgical Historyr/o ovarian cystSurgical Historydouble heart bypass 07/13/2020urgical Historycataract surgery11/2019Surgical Historyarthroscopic surgery of left knee05/01/20urgical HistorycycstocopySurgical Historyright eye zxvyqsy89/2021Surgical HistorySTEROID IMPLANT IN RIGHT EYE08/2021Hospitalization Historysee above Advanced Patient Care Other History general Narrative - Reported* Type Description Date Medical History hypertension Medical HistoryDiabetic -Medical HistoryosteoporosisMedical Historyherpes of the eyeMedical HistoryHTNMedical Historychronic kidney disease, stage 3Medical HistoryosteopeniaMedical HistorygoiterMedical Historyprolapsed cervical intervertebral discMedical HistoryDM 2Medical HistoryGLAUCOMAMedical History COVID 07/31/2021urgical HistoryappendixSurgical Historyeyelid penpwuk47/2018 Surgical History2 c-sectionSurgical HistoryappendectomySurgical HistoryC-section x 2Surgical Historyovarian cyst removalSurgical HistorycholecystectomySurgical Historygall bladder removalSurgical Historythyroid bx x 2Surgical HistoryRT foot surgerySurgical Historyr/o ovarian cystSurgical Historydouble heart bypass 07/13/2020urgical Historycataract surgery11/2019Surgical Historyarthroscopic surgery of left knee05/01/20urgical HistorycycstocopySurgical Historyright eye /2021Surgical HistorySTEROID IMPLANT IN RIGHT EYEurgical History RIGHT HEART CATH12/2021Hospitalization Historysee above Advanced Patient Care Other Reason for referral (narrative)No reason for referral information availableTrihealth Mcc[facility] Work Phone: Summary Purpose Family [...] disease) stage 4, GFR 15-29 ml/min Hyperlipidemia [id number] Hyperuricemia Hypokalemia Microscopic hematuria Secondary hyperparathyroidism Type 2 diabetes mellitus with diabetic chronic kidney disease Chief Complaint RENAL 4 MONTH F/U Reason for Visit Anemia of renal dise ase CKD (chronic kidney disease) stage 4, GFR 15-29 ml/min Hyperlipidemia [id number] Hyperuricemia Hypokalemia Microscopic hematuria Secondary hyperparathyroidism Type [...] section and content) DATE CREATED AUTHOR 03/07/2021 [facility] DATE CREATED AUTHOR AUTHOR'S ORGANIZ ATION 08/05/2021 [facility] DATE CREATED AUTHOR AUTHOR'S ORGANIZ ATION 12/16/2021 [facility] DATE CREATED AUTHOR AUTHOR'S ORGANIZ ATION 10/29/2022 [facility] DATE CREATED AUTHOR AUTHOR'S ORGANIZ ATION 11/29/2024 [facility] DATE CREATED AUTHOR AUTHOR'S ORGANIZ ATION 05/09/2025 [facility] REASON FOR VISIT [...] MemberRelationshipSpecialtyStart DateEnd Date Unallocated, Hudson Robertson MD [facility] [place] [address] PCP - GeneralFamily Medicine08/18/23 John Perdomo MD [address] [place] [address] Referring PhysicianOrthopaedic Ureymfs37/6/23Team MemberRelationshipSpecialty Start DateEnd Date UnallocatedHudson MD [address] [place] [address] [facility] - [facility]23 John Perdomo MD [address] [place] [address] Referring PhysicianOrthopaedic Hrtzzqe87/6/23 Team Status: Active Member Role Status Dates John Perdomo DO Primary Care Provider Active Start: August 26, 2024 Genevajennifer Jenkins MDAttending ProviderActiveStart: August 26, 2024 Team Status: Inactive Member Role Status Dates John Perodmo DO Primary Care Provider Active Start: September 03, 2024 End: September 03bdjennifer Jenkins MDAttending ProviderActiveStart: September 03, 2024 End: September 03, 2024Team MemberRelationshipSpecialtyStart DateEnd Date Unallocated, Noms MD Marcelo [facility] [place] [address] PCP - [facility]08/18/23 John Perdomo MD [address] [place], [place] [id number] Referring PhysicianOrthlifepoint hospitalsedic Lvsshcu80/6/23Team MemberRelationshipSpecialty Start DateEnd Date Unallocated, Noms MD Marcelo [address] [place] [address] PCP - [facility] Medicine08/18/23 John Perdomo MD [address] [place] [address] Referring PhysicianOrthlifepoint hospitalsedic Rpqkcpc42/6/23 Team Status: Active Member Role Status Dates [...] 29, 2025Team MemberRelationshipSpecialtyStart DateEnd Date UnallocatedHudson MD [facility] [place] [address] PCP - [facility] Medicine08/18/23 John Perdomo MD [address] [place] [address] Referring PhysicianOrthopaedic Ocacevx48/6/23 Team Status: Active Member Role/Relationship Status Dates [...] MemberRelationshipSpecialtyStart DateEnd Date Unallocated, Hudson Robertson MD [address] [place] [address] PCP - [facility] Medicine08/18/23 John Perdomo MD [address] [place] [id number] Referring PhysicianOrthopaedic Regnenz50/6/23 Goals (unrecognized section and content) Goals may [...] BE BASED ON THE PRIMARY CLINICAL RECORDS. [facility]. provides no warranty or guarantee of the accuracy or completeness of information in this document.
[2025-05-19 09:42] LABS: Hematocrit 31.1 % (36.0-48.0); Hemoglobin 10.2 g/dL (12.0-16.0); Mean Corpuscular HGB Conc 32.8 g/dL (29.9-35.2); Mean Corpuscular Hemoglobin 30.4 pg (26.7-34.0); Mean Corpuscular Volume 92.8 fL (81.0-99.0); Platelet Count 218 10^3/uL (150-450); Red Blood Count 3.35 10^6/uL (4.20-5.40); White Blood Count 10.5 10^3/uL (4.0-11.0)
[2025-05-19 10:09] LABS: Albumin Level 3.6 g/dL (3.4-5.0); Anion Gap 14.1; Blood Urea Nitrogen 69.0 mg/dL (7.0-18.0); Calcium 9.5 mg/dL (8.5-10.1); Carbon Dioxide 29.4 mmol/L (21.0-32.0); Chloride 101 mmol/L (98-107); Estimated GFR (African America 16 (>=60 mL/min/1.73m^2); Estimated GFR (Non-African Ame 13 (>=60 mL/min/1.73m^2); Glucose 142 mg/dL (74-106); Magnesium 2.4 mg/dL (1.8-2.4); Potassium 3.5 mmol/L (3.5-5.1); Sodium 141 mmol/L (136-145); Uric Acid 5.2 mg/dL (2.6-6.0)
[2025-05-19 10:49] LABS: Iron 46.0 ug/dL (50.0-170.0); Percent Iron Saturation 15.4 %; Total Iron Binding Capacity 298.0 ug/dL (250.0-450.0)
[2025-05-19 10:52] LABS: Protein Creatinine Ratio Urine 5.39; Total Protein Urine Random 284.3 mg/dL (<=11.9)
[2025-05-19 11:11] LABS: Ferritin 187.0 ng/mL (8.0-252.0)
== END 2025-05-19 09:01 | disposition home or self-care (01) ==
LOC: LAB 09:05
PROVIDERS: PCP Family Medicine; Visit Provider Internal Medicine
DX: N17.9 Acute kidney failure, unspecified (principal); R31.29 Other microscopic hematuria; E11.22 Type 2 diabetes mellitus with diabetic chronic kidney disease; I12.9 Hypertensive chronic kidney disease with stage 1 through stage 4 chronic kidney disease, or unspecified chronic kidney disease; N25.81 Secondary hyperparathyroidism of renal origin; N18.4 Chronic kidney disease, stage 4 (severe)
CPT/HCPCS: 36415; 80069; 82306; 82570; 82728; 83540; 83550; 83735; 83970; 84156; 84550; 85027

== ENCOUNTER 2025-05-26 10:32 | Outpatient (OUT) | payer MEDICARE, OTHER, SELFPAY ==
--- OUTSIDE RECORDS SUMMARY | 2025-05-20 10:00 | XMS_ITS | Encounter Summary ---
Author Organization [facility] Address [address] [place] [address] Care Team Providers Care Human Performance Professor Name Role Phone John Perdomo DO Primary Care Provider [phone] Reason for Visit * ReasonCommentsFollow-upPatient is here today for a follow up appointment [facility] admission for heart failure. Patient states she feels pretty good if she doesn't do to much activity, doing to much makes her SOB/MCALLISTER. Patient states she does have occasional right foot swelling, which resolves with elevating it. Patient deniesdizziness/lightheaded, palpitations/racing heart. Per patient Dr Perdomo is trying to get her home o2. Patient has questions about cardiac rehab.Coronary Artery DiseaseHypertensionCongestive Heart FailureHeart MurmurHyperlipidemiaFatigueIncreased fatigueShortness of BreathSOB/MCALLISTER with activity Encounter Details DateTypeDepartmentCare Team (Latest Contact Info)Unvnermjxun76/18/2025 10:00 AM ESTFollow-[facility] [address] [place] [id number] Emilia To, IRISH [address] [place] [address] Chronic diastolic heart failure (CMS/HCC) (Primary Dx); Coronary arteriosclerosis; Benign hypertensive heart disease with heart failure (CMS/HCC); Stage 4 chronic kidney disease (CMS/HCC) Social History Tobacco UseTypesPacks/DayYears UsedDateSmoking Tobacco: NeverSmokeless Tobacco: NeverAlcohol UseStandard Drinks/WeekCommentsNot Currently0 (1 standard drink = 0.6 oz pure alcohol)[facility] UtilitiesAnswerDate RecordedIn the past 12 months has [...] CommentsUnknownSex and Gender InformationValueDate RecordedSex Assigned at Mhgxqt5505/19/2022 6:11 PM ESTLegal AfyBnzcfw43/30/2022 12:22 AM EDTGender NjhgjxtdUzrzcj98/17/2022 6:11 PM ESTSexual OrientationHeterosexual or Straight 05/19/2022 6:11 PM ESTdocumented as of this encounter Last Filed Vital Signs Vital SignReadingTime TakenCommentsBlood Mqerbybp717/56107/20/2024 9:54 AM EST Ctodf889205/20/2025 9:54 AM ESTTemperature--Respiratory Rate--Oxygen Cpcyxzjzix97% 05/20/2025 9:54 AM ESTInhaled Oxygen Concentration--Brzrvk49.2 kg (124 lb) 05/20/2025 9:54 AM RUTQqlvmg028.2 cm (4' 8 )05/20/2025 9:54 AM ESTBody Mass Index27.8107/20/2024 9:54 AM ESTdocumented in this encounter Functional Status * BPAnswerDate of ZorksiqzzwPofhci973/56107/20/2024 9:54 AM Mounika Wilde MA * PulseAnswerDate of MwzakiqazfFoomoc9299/18/2025 9:54 AM Mounika Wilde MA * Audit Alcohol ScreeningQuestionAnswerDate of AssessmentAuthorHow often do you have a drink containing alcohol? 10:00 AM Mounika Wilde MA * Patient PositionAnswerDate of OwidzlygmgPzxzbkQcwjanu76/18/2025 9:54 AM Mounika Matute MA * BPAnswerDate of PzgfyxfyxtMnpxkr178/56107/20/2024 9:54 AM Mounika Wilde MA * PulseAnswerDate of GwcxrafrqpOjxwgs0702/18/2025 9:54 AM Mounika Wilde MA * BfP8KbokraTgvp of HktsggwlbmIwqxrl9868/18/2025 9:54 AM Mounika Wilde MA * BP LocationAnswerDate of AssessmentAuthorRight arm05/20/2025 9:54 AM Mounika Matute MA * Audit Alcohol ScreeningQuestionAnswerDate of AssessmentAuthorHow often do you have a drink containing alcohol? 10:00 AM Mounika Wilde MA * Patient PositionAnswerDate of HrnzntnyakYdnfybPfsxsbq94/18/2025 9:54 AM Mounika Matute MA documented as of this encounter Progress Notes * Emilia To, IRISH - 05/20/2025 10:00 AM EST Images from the original note were not included. [facility] Subjective Chief Complaint Patient presents with Follow-up Patient is here today for a follow up appointment [facility] admission for heart failure. Patient states she feels pretty good if she doesn't do to much activity, doing to much makes her SOB/MCALLISTER. Patient states she does have occasional right foot swelling, which resolves with elevating it. Patient denies dizziness/lightheaded, palpitations/racing heart. Per patient Dr Perdomo is trying to get her home o2. Patient has questions about cardiac rehab. 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 Update 05/20/2025 Since last seen she was admitted to [facility] for HFpEF exacerbation. She underwent a RHC. She was diuresed. She was discharged on bumex 3mg BID. She hasn't taken any metolazone since she was discharged. Perdomo is working on trying to get her home O2. We reached out to their office to see the status of this. She notes she is feeling better. Her MCALLISTER is still there but improved. Leg swelling is improved. She has some abdominal bloating but this is stable. BP at home is running similar to todays readings, 140/50s. She doesn't check her BP at home at the same time. Denies c/o CP, dizziness/LH, palpitations. Objective Visit Vitals BP 140/56 (BP Location: Right arm, Patient Position: Sitting) Pulse 69 Ht 1.422 m (4' 8 ) Wt 56.2 kg (124 lb) SpO2 93% BMI 27.80 kg/m?? Smoking Status Never BSA [...] Disp: 90 tablet, Rfl: 3 bumetanide (Bumex) 1 mg tablet, Take 3 tablets (3 mg) by mouth two times daily., Disp: 90 tablet, Rfl: 2 ergocalciferol (Vitamin D-2) 1.25 MG (43045 UT) capsule, Take 1 capsule by mouth 1 (one) time per week., Disp: , Rfl: ferrous sulfate 325 (65 Fe) MG tablet, TAKE 1 TABLET BY MOUTH EVERY OTHER DAY FOR 90 DAYS, Disp: , Rfl: folic acid (Folvite) 1 mg tablet, Take 1 mg by mouth in the morning., Disp: , Rfl: hydrALAZINE (Apresoline) 50 mg tablet, TAKE 1 TABLET BY MOUTH TWO TIMES DAILY., Disp: 180 tablet, Rfl: 3 isosorbide mononitrate ER (Imdur) 30 mg 24 hr tablet, Take 1 tablet (30 mg) by mouth once daily as directed. Do not crush or chew., Disp: 90 tablet, Rfl: 3 levothyroxine (Synthroid, Levoxyl) 50 mcg tablet, Take 1.5 tablets (75 mcg) by mouth in the morning., Disp: 45 tablet, Rfl: 0 metOLazone (Zaroxolyn) 2.5 mg tablet, Take 1 tablet (2.5 mg) by mouth if needed each day (daily as needed for shortness of breath or >2 pound weight gain.)., Disp: 90 tablet, Rfl: 1 metoprolol tartrate (Lopressor) 50 mg tablet, Take 1.5 tablets (75 mg) by mouth in the morning and at bedtime., Disp: , Rfl: midodrine (Proamatine) 5 mg tablet, Take 1 [...] mouth in the morning., Disp: , Rfl: sodium bicarbonate 650 mg tablet, Take 1 tablet (650 mg) by mouth two times daily for 197 doses., Disp: 60 tablet, Rfl: 3 [Paused] insulin glargine (Lantus) 100 unit/mL (3 mL) pen, Inject under the skin. (Patient taking differently: Inject under the skin if needed.), Disp: , Rfl: Recent Labs Admission on 05/01/2025, Discharged on 05/04/2025 Component Date Value Auto WBC 05/02/2025 10.31 RBC 05/02/2025 2.93 (L) Hemoglobin 05/02/2025 8.5 (L) Hematocrit 05/02/2025 26.1 (L) MCV 05/02/2025 89.1 MCH 05/02/2025 29.0 MCHC 05/02/2025 32.6 RDW 05/02/2025 15.3 (H) Platelets 05/02/2025 182 Sodium 05/02/2025 137 Potassium 05/02/2025 3.9 Chloride 05/02/2025 106 CO2 05/02/2025 21 BUN 05/02/2025 58 (H) Creatinine 05/02/2025 2.85 (H) Glucose 05/02/2025 146 (H) Calcium 05/02/2025 8.5 (L) Anion Gap 05/02/2025 14 eGFR 05/02/2025 16.8 (L) BUN/Creatinine Ratio 05/02/2025 20.4 BNP 05/02/2025 1,236 (H) Magnesium 05/02/2025 2.1 Sodium 05/02/2025 138 Potassium 05/02/2025 3.9 Chloride 05/02/2025 108 (H) CO2 05/02/2025 21 BUN 05/02/2025 60 (H) Creatinine 05/02/2025 2.77 (H) Glucose 05/02/2025 147 (H) Calcium 05/02/2025 8.6 Anion Gap 05/02/2025 13 eGFR 05/02/2025 17.4 (L) BUN/Creatinine Ratio 05/02/2025 21.7 Auto WBC 05/02/2025 10.61 (H) RBC 05/02/2025 3.04 (L) Hemoglobin 05/02/2025 9.0 (L) Hematocrit 05/02/2025 26.9 (L) MCV 05/02/2025 88.5 MCH 05/02/2025 29.6 MCHC 05/02/2025 33.5 RDW 05/02/2025 15.3 (H) Platelets 05/02/2025 186 Ventricular Rate 05/02/2025 74 Atrial Rate 05/02/2025 74 IL Interval 05/02/2025 168 QRS DURATION 05/02/2025 68 QT Interval 05/02/2025 410 QTC CALCULATION(BAZETT) 05/02/2025 455 P Independence 05/02/2025 64 R-Independence 05/02/2025 15 T Wave [place] 05/02/2025 103 O2Hb% 05/02/2025 64.1 (L) Glucose POC 05/02/2025 158 (H) TSH 05/02/2025 4.54 Glucose POC 05/02/2025 199 (H) Folate 05/02/2025 18.26 Vitamin B-12 05/02/2025 424 Ferritin 05/02/2025 204.0 Iron 05/02/2025 53 TIBC 05/02/2025 235 (L) Iron Saturation 05/02/2025 23 UIBC 05/02/[address] Abs 05/02/2025 0.1054 (H) Retic Ct Pct 05/02/2025 3.50 (H) Immature Reticulocyte Fr* 05/02/2025 22.4 (H) Reticulocyte Hemoglobin 05/02/2025 33.9 Glucose POC 05/02/2025 212 (H) Auto WBC 05/03/2025 9.33 RBC 05/03/2025 2.96 (L) Hemoglobin 05/03/2025 8.8 (L) Hematocrit 05/03/2025 26.5 (L) MCV 05/03/2025 89.5 MCH 05/03/2025 29.7 MCHC 05/03/2025 33.2 RDW 05/03/2025 15.5 (H) Platelets 05/03/2025 180 Sodium 05/03/2025 138 Potassium 05/03/2025 4.0 Chloride 05/03/2025 108 (H) CO2 05/03/2025 20 (L) BUN 05/03/2025 61 (H) Creatinine 05/03/2025 2.76 (H) Glucose 05/03/2025 113 (H) Calcium 05/03/2025 8.6 Anion Gap 05/03/2025 14 eGFR 05/03/2025 17.5 (L) BUN/Creatinine Ratio 05/03/2025 22.1 Glucose POC 05/03/2025 126 (H) Glucose POC 05/03/2025 154 (H) Phosphorus 05/03/2025 4.2 Protein, Ur 05/03/2025 105.9 Creatinine, Ur 05/03/2025 40.0 PTH 05/03/2025 105 (H) Color, Urine 05/03/2025 Light-Yellow Clarity, Urine 05/03/2025 Clear pH, Urine 05/03/2025 5.0 Leukocytes, Urine 05/03/2025 Negative Nitrite, Urine 05/03/2025 Negative Protein, Urine 05/03/2025 30 (A) Glucose, Urine 05/03/2025 Normal Bilirubin, Urine 05/03/2025 Negative Specific [place], Urine 05/03/2025 1.008 (L) Ketones, Urine 05/03/2025 Negative Blood, Urine 05/03/2025 Negative Urobilinogen, Urine 05/03/2025 Normal RBC, Urine 05/03/2025 3-5 (A) WBC, Urine 05/03/2025 0-2 Squamous Epithelial, Uri* 05/03/2025 Few Mucus, Urine 05/03/2025 Occasional Glucose POC 05/03/2025 187 (H) Glucose POC 05/03/2025 168 (H) Auto WBC 05/04/2025 8.26 RBC 05/04/2025 2.89 (L) Hemoglobin 05/04/2025 8.6 (L) Hematocrit 05/04/2025 26.0 (L) MCV 05/04/2025 90.0 MCH 05/04/2025 29.8 MCHC 05/04/2025 33.1 RDW 05/04/2025 15.6 (H) Platelets 05/04/2025 173 Sodium 05/04/2025 138 Potassium 05/04/2025 4.0 Chloride 05/04/2025 107 CO2 05/04/2025 21 BUN 05/04/2025 64 (H) Creatinine 05/04/2025 2.55 (H) Glucose 05/04/2025 122 (H) Calcium 05/04/2025 8.6 Anion Gap 05/04/2025 14 eGFR 05/04/2025 19.2 (L) BUN/Creatinine Ratio 05/04/2025 25.1 Glucose POC 05/04/2025 184 (H) 05/19/2025 Cr 3.45, BUN 69, eGFR 13, K 3.5, Na 141 Hgb 10.2, plt 218 Mag 2.4 05/12/2025 Cr 3.06, BUN 69, K 3.6, Na 141, eGFR 15 Hgb 9.9, plt 202 04/18/2025 Cr 2.63, BUN 56, K 3.6, blood testing 01/20/2025: Hemoglobin 11.1, platelets 177, [...] 1.8, potassium 4.3 Imaging and other tests ECHO 05/02/2025 Left Ventricle: The left ventricle is normal [...] annular calcification. Tricuspid Valve: Moderate tricuspid regurgitation. Cardiovascular Laboratory Report 05/02/2025 FINAL IMPRESSIONS: Moderately elevated right-sided heart pressures [...] Further recommendations deferred to the inpatient services Renal US 04/10/2025:bilateral calculi suspicious for nephrolithiasis, [...] Diagnoses and all orders for this visit: Chronic diastolic heart failure (CMS/HCC) Coronary arteriosclerosis Benign hypertensive heart disease with heart failure (CMS/HCC) Stage 4 chronic kidney disease (CMS/HCC) #Chronic HFpEF -Recently admitted for HFpEF exacerbation. -Recent RHC showed evidence of biventricular HF and she was diuresed. Current dry weight at home is120#. -She appears compensated on exam. -Currently on bumex 3mg BID. She has not taken her PRN metolazone. -Cr has increased from 2.55 at discharge to 3.45 per yesterday labs. Reviewed labs with her Preventive Maintenance Coordinator, Dr. Jenkins. He would like her to continue the current dose of bumex 3mg BID and he will plan to repeat labs before he sees her on 05/26. #HTN -Hypotension resolved -Continue metoprolol 75mg BID, hydralazine 50mg BID, amlodipine 10mg daily. Doxazosin currently on hold, consider resuming pending how her BP does. -Will call her in 1 week for BP readings. Asked her to check her BP 2 hours after medications. #CKD stage IV -She follows with Dr. Jenkins #CAD -s/p CABG 07/2020 (discovered in the setting of unstable angina) -CP sx's resolved. -Continue ASA, statin, BB #Post op a.fib -no recurrence since -RRR On exam -Continue to monitor #Valvular heart disease -Continue to monitor with routine TTEs -Moderate TR per 05/02/25 TTE Continue close follow-up as she is high risk for HF exacerbation. Follow up in about 2 weeks (around 06/03/2025). Emilia To CNP documented in this encounter Plan of Treatment DateTypeDepartmentCare Team (Latest Contact Info)Yrhmycrjibt94/05/2025 1:00 PM ESTOffice Visit [facility] [address] [place] [address] Bran Fish MD [address] [facility] [address] [facility] [place] [address] documented as of this encounter Visit Diagnoses Diagnosis Chronic diastolic heart failure (CMS/HCC)- Primary Chronic diastolic heart failure Coronary arteriosclerosis Coronary atherosclerosis of unspecified type of vessel, [place] or graft Benign hypertensive heart disease with heart failure (CMS/HCC) Stage 4 chronic kidney disease (CMS/HCC) documented in this encounter Care Teams Team MemberRelationshipSpecialtyStart DateEnd Date John Perdomo DO [address] [place] [address] PCP - GeneralFamily Ulkwwjaj95/18/25documented as of this encounter
--- OUTSIDE RECORDS SUMMARY | 2025-05-26 10:36 | XMS_ITS | Clinical Summary ---
Author Organization [facility] Address [address] [place] [address] Care Team Providers Care Office Secretary Name Role Phone Lenane John Primary Care Provider [phone] Allergies Active AllergyReactionsCriticalityNoted ItepXfphtrizYxgmmwojblmhEiqeq21/08/2022 Erythromycin Base05/10/20224475Ecakacebtgbri36/08/5269VpnvheocmvzGqgmk36/08/2022 AlvtzzjlekbspiIrbcSxg18/04/2024 Medications MedicationSigDispense QuantityRefillsLast FilledStart DateEnd DateStatus allopurinol (Zyloprim) 100 mg tablet TAKE 1 TABLET BY MOUTH ONCE DAILY FOR 90 DAYSActive aspirin 81 mg EC tablet Take 1 tablet every day by oral route.Active ergocalciferol (Vitamin D-2) 1.25 MG (28213 UT) capsule Take 1 capsule by mouth [...] mg SL tablet Indications:Coronary artery disease of robinson artery of robinson heart with stable angina pectorisPlace 1 tablet (0.4 mg) under the tongue every 5 (five) minutes if needed for chest pain. 25 tablet ctive midodrine (Proamatine) 5 mg tablet Indications:Orthostatic hypotensionTake 1 tablet (5 mg) by mouth if needed (as needed for orthostatic hypotension). 90 tablet 312/5Active isosorbide mononitrate ER (Imdur) 30 mg 24 hr tablet Indications:Coronary artery disease involving robinson coronary artery of robinson heart without angina pectorisTake 1 tablet (30 [...] SWELLING OR WEIGHT GAIN 90 tablet 103Discontinued doxazosin (Cardura) 4 mg tablet Indications:Primary hypertensionTAKE 1 AND 1/2 TABLETS BY MOUTH TWICE A DAY 270 tablet 304//98939607/04/2024Discontinued(Stop Taking at Discharge) hydrALAZINE (Apresoline) 50 mg [...] for possible right heart cath Acute kidney zhtqxx0104/30/20257935Xtepbulcdnckcz25/30/6256Tsasqeiqdwqmp84/30/2024 Bblrzbyftwq36/30/2024Microscopic ybeycwczd02/30/2024Secondary hfdlixcgcupmnqzhrrn61/30/2024Nontoxic multinodular ashcsu8609/27/2023Orthostatic hndfcjvhzuq99/09/2024 Assessment & Plan (07/11/2023 12:15 PM EST): [...] to evaluate symptoms and response. Carmina Cruz TECH ED/WOODSHOP TEACHER Division of Cardiology, [facility] [phone] Pager- [phone] Email- [email or web address] Corneal scar, right eye/4Dry eyes/10/2023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 type1 diabetes /4Primary open angle glaucoma (POAG) of both eyes, mild stage/4Benign essential hypertension 06/02/2022 Assessment & Plan (07/20/2022 10:35 AM EST): Hypertension is 137/62 Continue meds as prescribed. Bumex, doxazosin, hydralazine Rdchurdw00/01/1866Gnxqvy97/01/2022hronic diastolic heart zgyhcvu7205/11/2022 Overview (07/20/2022): Images from the original note were not included. 06/2022 Echo Assessment & Plan (02/24/2023 2:27 PM EDT): NYHC II Currently euvolemic without exacerbation Continue GDMT- Diuretic therapy- As per nephrology recommendations she takes Bumex 3 mg twice daily and metolazone2.5 mg as needed Monitor daily weights, I&O, fluid restriction 1.5-2L/day, renal function and electrolytes Assessment & Plan (07/20/2022 10:33 AM EST): NY III Currently pt is euvolemic, without exacerbation [...] edema, dyspnea and weight gain noted. Calling floor covering installer Dr garcia for recommendations - in light [...] and she voiced understanding of instructions. Coronary jiqjxdcrkwwyetzs80/19/2022 Assessment & Plan (02/24/2023 2:26 PM EDT): [...] stable, continue GDMT- ASA, lipitor and metoprolol Forging Engineer sent a note that he wants to add eyedrops- darzalamide/timolol to her regimen and to monitor for any side effects. Hypertensive pmerurwa22/19/2022 Assessment & Plan (05/02/2025 12:46 AM EDT): Resume home medications Assessment & Plan (02/24/2023 2:26 PM EDT): Hypertension is Well-controlled blood pressure 131/71 Continue all medications Follow-up with nephrology as scheduled Assessment & Plan (05/11/2022 3:19 PM EST): Currently stable- 136/59 Continue all medications Stage 4 chronic kidney cuohcnw9107/21/2021 Assessment & Plan (05/02/2025 12:46 AM EDT): Monitor kidney functions Avoid nephrotoxic drugs Appreciate nephrology recommendations Assessment & Plan (05/11/2022 3:20 PM EST): We will discussed with Dr. Garcia regarding further recommendations regarding her diuresis Sent for labs today and chest x-ray Kidney bcjwxoc2807/31/2020Heart ecfsvu7108/13/2019Recurrent herpes maidyog4408/13/2019 Type 2 diabetes abryrhsp34/11/2020 Assessment & Plan (05/02/2025 12:46 AM EDT): Glucose management protocol Sliding scale Hypoglycemia management Encounters DateTypeDepartmentCare WuinTutmudqhzqn08/18/2025 10:00 AM ESTFollow-Up [facility] [address] [place] [facility] [place] [address] Emilia To CNP Chronic diastolic heart failure (CMS/HCC) (Primary Dx); Coronary arteriosclerosis; Benign hypertensive heart disease with heart failure (CMS/HCC); Stage 4 chronic kidney disease (CMS/HCC)05/20/2025Telephone [facility] [address] [place] [facility] [place] [address] Julita Scherer MA 05/07/2025Orders Only [facility] [address] [place] [facility] [place] [address] Julita Scherer MA Swelling (Primary Dx)05/07/2025Telephone [facility] [address] [place] [address] Julita Scherer MA 05/05/2025Telephone [facility] Vascular Lab [address] [place] [address] Roxana Stark RN HF post discharge call and inpatient survey sent.05/02/2025 9:30 AM EDT - 05/02/2025 10:30 AM EDTSurgery [facility] V[facility] Lab [address] [place] [address] Rickey Jackson MD Right heart cath [58369 (CPT??) +1 more]05/01/2025 5:55 PM EDT - 05/04/2025 4:00 PM ESTHospital Encounter [facility] [address] [place] [phone] Crispin Galeano MD Horen, Nicholas G., MD Chronic diastolic heart failure (CMS/HCC) (Primary Dx); Acute on chronic heart failure with preserved ejection fraction (HFpEF) (CMS/HCC); Coronary arteriosclerosis; Essential (primary) hypertension; Goiter Discharge Disposition: Home or Self Care ()05/01/2025 1:20 PM EDTOffice Visit [facility] [address] [place] [facility] [place] [address] Emilia To CNP Acute on chronic diastolic congestive heart failure (CMS/HCC) (Primary Dx); Stage 4 chronic kidney disease (CMS/HCC); Essential (primary) hypertension; Coronary artery disease involving robinson coronary artery of robinson heart without angina pectoris; History of coronary artery bypass surgery; Primary /30/6072Xtfpdv27/30/2025Refill [facility] [address] [place] [address] Bran Fish MD Essential (primary) gxnogzollphn15/27/2025Telephone [facility] [address] [place] [address] Michelle Dias MA 04/25/2025Orders Only [facility] [address] [place] [address] Michelle Dias MA Shortness of breath (Primary Dx)04/15/2025 2:20 PM EDTOffice Visit [facility] [address] [place] [facility] [place] [address] Emilia To CNP Acute on chronic diastolic congestive heart failure (CMS/HCC) (Primary Dx); Essential (primary) hypertension; Coronary artery disease involving robinson coronary artery of robinson heart without angina pectoris; History of coronary artery bypass surgery; Stage 4 chronic kidney disease (CMS/HCC); Primary hypertension; Orthostatic /09/2025Orders Only [facility] [address] [place] [facility] [place] [address] Drea Robertson MD 04/10/2025Telephone [facility] [address] [place] [facility] [place] [address] Julita Scherer MA 04/07/2025 3:00 PM EDTOffice Visit [facility] [address] [place] [facility] [place] [address] Bran Fish MD Acute on chronic diastolic congestive heart failure (CMS/HCC) (Primary Dx); Coronary artery disease involving robinson coronary artery of robinson heart without angina pectoris; Essential (primary) hypertension; History of coronary artery bypass surgery; Stage 4 chronic kidney disease (CMS/HCC)from Last 3 Months Immunizations ImmunizationAdministration DatesNext DueHep B, adult06/20/2000,03/07/2000, 12/01/1999 Family History Medical HistoryRelationNameCommentsHeart attackFatherHeart attackMotherHeart failureMotherRelationNameStatusCommentsFatherDeceasedMotherDeceased Social History Tobacco UseTypesPacks/DayYears UsedDateSmoking Tobacco: NeverSmokeless Tobacco: Never Tobacco Cessation:Counseling Given: Not Answered Alcohol UseStandard Drinks/WeekCommentsNot Currently0 (1 standard drink = 0.6 oz pure alcohol)[facility] UtilitiesAnswerDate RecordedIn the past 12 months has the [employer], gas, oil, or water startuply threatened to shut off services in your [...] were you homeless or living in a longterm (including now)? No05/01/2025Hunger Vital SignAnswerDate RecordedWithin the past 12 months, you worried that your food would run out before you got the money to buymore.Never true05/01/2025Ran Out of Food in the Last YearNot on file05/01/2025 CommentsUnknownSex and Gender InformationValueDate RecordedSex Assigned at Shhhju8205/19/2022 6:11 PM ESTLegal XvwIcvrsp49/30/2022 12:22 AM EDTGender WubddfpuZobtlx77/17/2022 6:11 PM ESTSexual OrientationHeterosexual or Straight 05/19/2022 6:11 PM EST Last Filed Vital Signs Vital SignReadingTime TakenCommentsBlood Ypmlpwde713/56107/20/2024 9:54 AM EST Ystce679705/20/2025 9:54 AM OPAPkmmyvpgpxb82 ??C (98.6 ??F)05/04/2025 12:25 PM EST Respiratory Lhjj374807/04/2024 12:25 PM ESTOxygen Bukonrpxnq30%05/20/2025 9:54 AM ESTInhaled Oxygen Concentration--Iqinpa00.2 kg (124 lb)05/20/2025 9:54 AM EST Twkiti339.2 cm (4' 8 )05/20/2025 9:54 AM ESTBody Mass Index27.8107/20/2024 9:54 AM EST Plan of Treatment DateTypeDepartmentCare Team (Latest Contact Info)Ydvvblimvfh32/05/2025 1:00 PM ESTOffice Visit [facility] [place] [address] [place] [address] Bran Fish MD [address] [facility] [place] [address] Health MaintenanceDue DateLast DoneCommentsCT Rgtoifbnbpsk1951olonoscopy 1951olorectal Cancer Wjwezoxmk1951FIT-DNA1951FIT1950 FOBT1950Medicare Annual Wellness (AWV)04/23/19517127Vygmujwtmxyhu1951 Diabetes: Retinopathy Tuyveglaw84/22/1961epression Rrvbybrqc35/22/1963 Pneumococcal Vaccine: 50+ Years (1 of 2 - PCV)1970Adult Tgpcjxf3104/23/1973 Xbvlyzgkq41/22/1991Zoster Vaccines (1 of 2)2001Diabetes: Hemoglobin A1C /OVID-19 Vaccine (1 - season)2025Influenza Vaccine (#1)2025Fall Risk Ivhaueclm26/02/2025HIB VaccinesAged OutNo longer eligible based on patient's [...] Procedures Procedure NamePriorityDate/TimeAssociated DiagnosisCommentsPOCT GLUCOSE METER UNSOLICITED TWVFFJGVszfiux11/02/2025 11:23 AM EST BASIC METABOLIC PANELPending Lktlsadwv76/02/2025 8:02 AM EST CBCPending Bqjrfhzxy98/02/2025 8:02 AM EST POCT GLUCOSE METER UNSOLICITED HTFMVSMQvchdfp05/01/2025 8:12 PM EDT POCT GLUCOSE METER UNSOLICITED EMHUZCQEhgaywr24/01/2025 4:41 PM EDT URINALYSIS MICROSCOPICPending Qvjrwaqxn72/01/2025 3:01 PM EDT URINALYSISPending Urwtzscvq20/01/2025 3:01 PM EDT CREATININE, URINE, RANDOMPending Xjumvfyyo43/01/2025 3:01 PM EDT PROTEIN, URINE, RANDOMPending Wtuawywch50/01/2025 3:01 PM EDT HOME O2 EVAL (DESATURATION SCREEN)Lhbmwwc9105/03/2025 12:19 PM EDTPOCT GLUCOSE METER UNSOLICITED JYEFVEAPzgapnp85/01/2025 11:41 AM EDT POCT GLUCOSE METER UNSOLICITED RGVETNJJvamoym51/01/2025 7:59 AM EDT PTH, INTACTAdd-On05/03/2025 7:15 AM EDT PHOSPHORUSAdd-On05/03/2025 7:15 AM EDT BASIC METABOLIC PANELPending Wbmtsbycr33/01/2025 7:15 AM EDT CBCPending Bwyikeloz66/01/2025 7:15 AM EDT POCT GLUCOSE METER UNSOLICITED DCSSZMDTwlsepb76/31/2025 8:10 PM EDT POCT GLUCOSE METER UNSOLICITED OYDXHTNUmxwlwb33/31/2025 5:37 PM EDT XR CHEST 1 FMUYRdsldub34/31/2025 2:14 PM EDT POCT GLUCOSE METER UNSOLICITED VNIOLDRIaodgzz47/31/2025 12:18 PM EDT RIGHT HEART ILXQUacvjdq24/31/2025 11:44 AM EDT Acute on chronic heart failure with preserved ejection fraction (HFpEF) ([facility]) %JID5Jqutnmb80/31/2025 11:42 AM EDT ECG 12-EBHFLxdedqa46/31/2025 9:14 AM EDT COMPLETE ECHO (TTE)Bzwktuj6105/02/2025 8:30 AM EDT RETICULOCYTE PANELAdd-On05/02/2025 5:46 AM EDT IRON AND TIBCAdd-On05/02/2025 5:46 AM EDT FERRITINAdd-On05/02/2025 5:46 AM EDT VITAMIN J80Uac-Qc76/31/2025 5:46 AM EDT FOLATEAdd-On05/02/2025 5:46 AM EDT TSH3 REFLEX TO GQ1Emv-Bz24/31/2025 5:46 AM EDT JUVQyusrkn32/31/2025 5:46 AM EDT BASIC METABOLIC EAHDWLyopvth15/31/2025 5:46 AM EDT DHFEGDUXWOKIN31/31/2025 12:24 AM EDT B-TYPE NATRIURETIC DILSUYSDCDX55/31/2025 12:24 AM EDT BASIC METABOLIC MHKQEXROE58/31/2025 12:24 AM EDT OYJDGYF7805/02/2025 12:24 AM EDT BASIC METABOLIC OYDWCUpuoxwa54/09/2025 2:45 PM EDTHEMOGLOBIN Z5HIfqvxov 07/10/2020 7:09 PM EST from Last 3 Months or Most Recently Relevant to Health Maintenance Results * (ABNORMAL) POCT glucose meter (05/04/2025 11:23 AM EST) Only the most recent of8 resultswithin the time period is included. ComponentValueRef RangeTest MethodAnalysis TimePerformed AtPathologist Signature Glucose LAK621(H)70 - 105 mg/dL05/04/2025 11:35 AM [facility] ([place]) Comment:jarizmeSpecimen (Source)Anatomical Location / LateralityCollection Method / VolumeCollection TimeReceived TimeBloodCapillary blood specimen / Vgpoahl7205/04/2025 11:23 AM EST05/04/2025 11:35 AM EST Narrative [facility] ([facility] - 05/04/2025 11:35 AM EST Waived Testing in the ED is performed under the ED CLIA certificate #[id number]. Authorizing ProviderResult TypeResult StatusNicchelsea SNEED BLOOD ORDERABLESFinal ResultPerforming OrganizationAddressCity/State/ZIP CodePhone Number [facility] ([facility]) [address] [place] [address] * (ABNORMAL) CBC (05/04/2025 8:02 AM EST) Only the most recent of4 resultswithin the time period is included. ComponentValueRef RangeTest MethodAnalysis TimePerformed AtPathologist Signature Auto WBC8.264.00 - 10.60 10*3/uL05/04/2025 8:28 AM [facility] ([facility]) RBC2.89(L)3.80 - 5.00 10*6/uL05/04/2025 8:28 AM [facility] ([facility]) Hemoglobin8.6(L)12.0 - 15.0 g/dL05/04/2025 8:28 AM [facility] ([facility]) Fpkwvfebgq77.0(L)36.0 - 45.0 %05/04/2025 8:28 AM [facility] ([facility]) MCV90.082.0 - 98.0 fL05/04/2025 8:28 AM [facility] ([facility])MCH29.827.0 - 33.0 pg05/04/2025 8:28 AM [facility] ([facility])MCHC33.132.0 - 35.0 g/dL05/04/2025 8:28 AM [facility] ([facility])RDW15.6(H)11.5 - 15.0 % 05/04/2025 8:28 AM [facility] ([facility])Hpchjdili013271 - 400 10*3/uL 05/04/2025 8:28 AM [facility] ([facility])Specimen (Source)Anatomical Location / LateralityCollection Method / VolumeCollection TimeReceived TimeBlood Venous blood specimen / UnknownVenipuncture / Wujuwng9705/04/2025 8:02 AM EST 05/04/2025 8:16 AM EST Narrative Authorizing ProviderResult TypeResult StatusNicchelsea SNEED BLOOD ORDERABLESFinal ResultPerforming OrganizationAddressCity/State/ZIP CodePhone Number [facility] ([facility]) [address] [place] [address] * (ABNORMAL) Basic metabolic panel (05/04/2025 8:02 AM EST) Only the most recent of5 resultswithin the time period is included. ComponentValueRef RangeTest MethodAnalysis TimePerformed AtPathologist Signature Mrrmmn903694 - 145 mmol/L107/04/2024 8:41 AM [facility] ([facility]) Potassium4.03.5 - 5.1 mmol/L107/04/2024 8:41 AM [facility] ([facility]) Ogvmwgin65310 - 107 mmol/L107/04/2024 8:41 AM [facility] ([facility])CO221 21 - 31 mmol/L107/04/2024 8:41 AM [facility] ([facility])BUN64(H)7 - 25 mg/dL05/04/2025 8:41 AM [facility] ([facility])Creatinine2.55(H)0.60 - 1.20 mg/dL05/04/2025 8:41 AM [facility] ([facility])Oxvylym946(H)70 - 100 mg/dL05/04/2025 8:41 AM [facility] ([facility])Calcium8.68.6 - 10.3 mg/dL 05/04/2025 8:41 AM [facility] ([facility])Anion Rmo363 - 20 mmol/L 05/04/2025 8:41 AM [facility] ([facility])eGFR19.2(L)>60.0 mL/min/1.73m*2 05/04/2025 8:41 AM [facility] ([facility])Comment:[facility]???s estimated glomerular filtration rate (eGFR) [...] group of individuals. BUN/Creatinine Ratio25. 8:41 AM [facility] ([facility])Specimen (Source)Anatomical Location / LateralityCollection Method / VolumeCollection TimeReceived TimeBloodVenous blood specimen / UnknownVenipuncture / Unknown 05/04/2025 8:02 AM EST05/04/2025 8:15 AM EST Narrative Authorizing ProviderResult TypeResult StatusEh SNEED BLOOD ORDERABLESFinal ResultPerforming OrganizationAddressCity/State/ZIP CodePhone Number [facility] ([facility]) [address] [place] [address] * Protein, urine, random (05/03/2025 3:01 PM EDT)ComponentValueRef RangeTest MethodAnalysis TimePerformed AtPathologist SignatureProtein, Ur105.9mg/dL 05/03/2025 3:31 PM [facility] ([facility])Comment:There are no established reference values for random urine specimens.Specimen (Source) Anatomical Location / LateralityCollection Method / VolumeCollection Time Received TimeUrineUrine specimen obtained by clean catch procedure / Unknown Non-blood Collection / Fnrxmhd8905/03/2025 3:01 PM EDT107/03/2024 3:10 PM EDT Narrative Authorizing ProviderResult TypeResult StatusJazzmine SNEED URINE ORDERABLESFinal ResultPerforming OrganizationAddressCity/State/ZIP CodePhone Number [facility]) [address] [place] [address] * Creatinine, urine, random (05/03/2025 3:01 PM EDT)ComponentValueRef RangeTest MethodAnalysis TimePerformed AtPathologist SignatureCreatinine, Ur40.026 - 299 mg/dL05/03/2025 3:31 PM [facility] ([facility])Specimen (Source) Anatomical Location / LateralityCollection Method / VolumeCollection Time Received TimeUrineUrine specimen obtained by clean catch procedure / Unknown Non-blood Collection / Oxhcdfo1605/03/2025 3:01 PM EDT107/03/2024 3:10 PM EDT Narrative Authorizing ProviderResult TypeResult StatusJazzmine SNEED URINE ORDERABLESFinal ResultPerforming OrganizationAddressCity/State/ZIP CodePhone Number [facility] ([facility]) [address] [place] [address] * (ABNORMAL) Urinalysis microscopic (05/03/2025 3:01 PM EDT)ComponentValueRef RangeTest MethodAnalysis TimePerformed AtPathologist SignatureRBC, Urine3-5(A) None Seen, 0-2 /HPF05/03/2025 3:25 PM [facility] ([facility])WBC, Urine 0-2None Seen, 0-2 /HPF05/03/2025 3:25 PM [facility] ([facility])Squamous Epithelial, UrineFewNone Seen, Occasional, Few /LPF107/03/2024 3:25 PM [facility] ([facility])Mucus, UrineOccasionalNone Seen, Occasional, Few /LPF 05/03/2025 3:25 PM [facility] ([facility])Specimen (Source)Anatomical Location / LateralityCollection Method / VolumeCollection TimeReceived Time UrineUrine specimen obtained by clean catch procedure / UnknownNon-blood Collection / Fpbwose1305/03/2025 3:01 PM EDT107/03/2024 3:10 PM EDT Narrative Authorizing ProviderResult TypeResult StatusMuhammad Royer SNEED URINE ORDERABLESFinal ResultPerforming OrganizationAddressCity/State/ZIP CodePhone Number [facility] ([facility]) [address] [place] [address] * (ABNORMAL) Urinalysis (05/03/2025 3:01 PM EDT)ComponentValueRef RangeTest MethodAnalysis TimePerformed AtPathologist SignatureColor, UrineLight-Yellow Colorless, Yellow, Light-Iiqjdv3705/03/2025 3:25 PM [facility] ([facility])Clarity, YjmvuBmnfqDztmr08/01/2025 3:25 PM [facility] ([facility])pH, Urine5.05.0 - 8.0 pH05/03/2025 3:25 PM [facility] ([facility])Leukocytes, KgvzvFnejjscrSqnysrwk57/01/2025 3:25 PM [facility] ([facility])Nitrite, DdszqOexqklssJudzxhvp82/01/2025 3:25 PM [facility] ([facility])Protein, Urine30(A)Negative mg/dL05/03/2025 3:25 PM [facility] ([facility])Glucose, UrineNormalNormal mg/dL05/03/2025 3:25 PM EDT [facility] ([facility])Bilirubin, PzgrcDbelhxlpKednpxoe16/01/2025 3:25 PM [facility] ([facility])Specific [place], Urine1.008(L)1.010 - 1.030 05/03/2025 3:25 PM [facility] ([facility])Ketones, UrineNegativeNegative mg/dL05/03/2025 3:25 PM [facility] ([facility])Blood, UrineNegative Pmicecir62/01/2025 3:25 PM [facility] ([facility])Urobilinogen, Urine NormalNormal mg/dL05/03/2025 3:25 PM [facility] ([facility])Specimen (Source)Anatomical Location / LateralityCollection Method / VolumeCollection TimeReceived TimeUrineUrine specimen obtained by clean catch procedure / UnknownNon-blood Collection / Nnfbail2205/03/2025 3:01 PM EDT107/03/2024 3:10 PM EDT Narrative Authorizing ProviderResult TypeResult StatusMuhammakevon SENED URINE ORDERABLESFinal ResultPerforming OrganizationAddressCity/State/ZIP CodePhone Number [facility] ([facility]) [address] [place] [address] * Phosphorus (05/03/2025 7:15 AM EDT)ComponentValueRef RangeTest MethodAnalysis TimePerformed AtPathologist SignaturePhosphorus4.22.5 - 5.0 mg/dL05/03/2025 1:33 PM [facility] ([facility])Specimen (Source)Anatomical Location / LateralityCollection Method / VolumeCollection TimeReceived TimeBloodVenous blood specimen / UnknownVenipuncture / Nubtdza8705/03/2025 7:15 AM EDT107/03/2024 7:40 AM EDT Narrative Authorizing ProviderResult TypeResult StatusMumora SNEED BLOOD ORDERABLESFinal ResultPerforming OrganizationAddressCity/State/ZIP CodePhone Number [facility] ([facility]) [address] [place] [address] * (ABNORMAL) PTH, intact (05/03/2025 7:15 AM EDT)ComponentValueRef RangeTest MethodAnalysis TimePerformed AtPathologist KakoqvqhzPDV080(H)12 - 88 pg/mL 05/03/2025 1:53 PM EDTSHIPROCK[facility] ([facility])Specimen (Source)Anatomical Location / LateralityCollection Method / VolumeCollection TimeReceived Time BloodVenous blood specimen / UnknownVenipuncture / Qivqhop0805/03/2025 7:15 AM EDT107/03/2024 7:40 AM EDT Narrative Authorizing ProviderResult TypeResult StatusMumora SNEED BLOOD ORDERABLESFinal ResultPerforming OrganizationAddressCity/State/ZIP CodePhone Number [facility] ([facility]) [address] [place] [address] * XR chest 1 view (05/02/2025 2:14 [...] ??This was exchanged out for a 6 Urdu 11 cm sheath. Right heart catheterization was [...] with preserved ejection fraction Authorizing ProviderResult TypeResult StatusGeorbranden Fish [facility] [place] CATH PROCEDURESFinal Result * (ABNORMAL) %HbO2 (05/02/2025 11:42 AM EDT)ComponentValueRef RangeTest Method Analysis TimePerformed AtPathologist PipszzmrxW2Bc%64.1(L)90.0 - 95.0 % 05/02/2025 11:42 AM EDTSHIPR[facility] ([facility])Specimen (Source)Anatomical Location / LateralityCollection Method / VolumeCollection TimeReceived Time BloodVenous blood specimen / Iqbcuoc2705/02/2025 11:42 AM EDT1 11:42 AM EDT Narrative Authorizing ProviderResult TypeResult StatusEh SNEED POINT OF CARE TEST DOCKED DEVICE UNSOLICITED RESULTSFinal ResultPerforming Organization AddressCity/State/ZIP CodePhone Number [facility] ([facility]) [address] [place] [address] * ECG 12 lead (05/02/2025 9:14 AM EDT)ComponentValueRef RangeTest MethodAnalysis TimePerformed AtPathologist SignatureVentricular Flxh77REWXI MUSEAtrial Rate 74BPMGE MUSEPR Vxnsgsbo755igZB MUSEQRS IBTZCZEX19btXQ MUSEQT Vixrerga382hcLR MUSEQTC CALCULATION(ARENZETT)455msGE MUSEP Brql83mzmedstAT MUSER-Abkw01ffkevtjQW MUSET Wave Lcrx269fxleldlKT MUSESpecimen (Source)Anatomical Location / LateralityCollection Method / [...] ORDERABLES Final ResultPerforming OrganizationAddressCity/State/ZIP CodePhone Number [facility] DON * COMPLETE ECHO (TTE) (05/02/2025 8:30 AM EDT)Anatomical RegionLaterality ModalityOtherSpecimen (Source)Anatomical Location / LateralityCollection Method / VolumeCollection TimeReceived Time05/02/2025 7:57 AM EDT Narrative 05/02/2025 12:21 PM EDT 1 1 [facility] Heart Station [address] [place] [address] [phone] (fax) Echocardiogram-[facility] Name: CLAUDIA POLO Study Date: 05/02/2025 07:57 AM B/P: 164 mmHg/64 mmHg HR: 72 bpm Date of : 1950 Location: [facility] Height: 56 in. Age: 75 year(s) Patient Room: [facility] Weight: 138 lb. Gender: Female Patient Status: [...] No pericardial effusion. Procedure Staff Reading Group: [facility] Referring Physician: JOHN PERDOMO ??Director Of Midwifery/Staff Midwife: Jessica Bain [facility] Ordering Physician: EH HIGUERA ?? Procedure Note Arturo Baker MD - 05/02/2025 1 1 [facility] [address] [place] [address] [phone] (fax) Echocardiogram-[facility] Name: CLAUDIA POLO Study Date: 05/02/2025 07:57 AM B/P: 164 mmHg/64 mmHg HR: 72 bpm Date of : 1950 Location: [facility] Height: 56 in. Age: 75 year(s) [...] No pericardial effusion. Procedure Staff Reading Group: [facility] Referring Physician: JOHN PERDOMO Director Of Midwifery/Staff Midwife: HALLE Jacob Ordering Physician: EH HIGUERA Authorizing ProviderResult TypeResult Meliton Higuera [facility] [place] ECHO PROCEDURESFinal Result * TSH3 Reflex to FT4 (05/02/2025 5:46 AM EDT)ComponentValueRef RangeTest Method Analysis TimePerformed AtPathologist SignatureTSH4.540.34 - 5.60 mIU/L 05/02/2025 2:16 PM [facility] ([facility])Specimen (Source)Anatomical Location / LateralityCollection Method / VolumeCollection TimeReceived Time BloodVenous blood specimen / UnknownVenipuncture / Bgpintp1805/02/2025 5:46 AM EDT1 6:07 AM EDT Narrative Authorizing ProviderResult TypeResult Meliton Higuera [facility] BLOOD ORDERABLESFinal ResultPerforming OrganizationAddressCity/State/ZIP CodePhone Number [facility] ([facility]) [address] [place] [address] * (ABNORMAL) Iron and TIBC (05/02/2025 5:46 AM EDT)ComponentValueRef RangeTest MethodAnalysis TimePerformed AtPathologist PmwbceyhdOntu9650 - 212 ug/dL 05/02/2025 6:25 PM [facility] ([facility])XUDS797(L)250 - 450 ug/dL 05/02/2025 6:25 PM [facility] ([facility])Iron Yfdmrtzsro7894 - 50 % 05/02/2025 6:25 PM [facility] ([facility])CHSF659.0155.0 - 355.0 ug/dL 05/02/2025 6:25 PM [facility] ([facility])Specimen (Source)Anatomical Location / LateralityCollection Method / VolumeCollection TimeReceived Time BloodVenous blood specimen / UnknownVenipuncture / Zafpfut9105/02/2025 5:46 AM EDT1 6:07 AM EDT Narrative Authorizing ProviderResult TypeResult StatusEh SNEED BLOOD ORDERABLESFinal ResultPerforming OrganizationAddressCity/State/ZIP CodePhone Number [facility] ([facility]) [address] [place] [address] * (ABNORMAL) Reticulocyte panel (05/02/2025 5:46 AM EDT)ComponentValueRef Range Test MethodAnalysis TimePerformed AtPathologist SignatureRetic Ct Abs0.1054(H) 0.0250 - 0.1000 10*6/uL05/02/2025 6:17 PM [facility] ([facility])Retic Ct Pct3.50(H)0.50 - 1.80 %05/02/2025 6:17 PM [facility] ([facility]) Immature Reticulocyte Fraction %22.4(H)2 - 16 %05/02/2025 6:17 PM [facility] ([facility])Reticulocyte Lbyimvnjbe76.928.0 - 36.0 pg05/02/2025 6:17 PM [facility] ([facility])Specimen (Source)Anatomical Location / LateralityCollection Method / VolumeCollection TimeReceived TimeBloodVenous blood specimen / UnknownVenipuncture / Zkizltm4005/02/2025 5:46 AM EDT1 6:09 AM EDT Narrative Authorizing ProviderResult TypeResult StatusEh SNEED BLOOD ORDERABLESFinal ResultPerforming OrganizationAddressCity/State/ZIP CodePhone Number [facility] ([facility]) [address] [place] [address] * Folate (05/02/2025 5:46 AM EDT)ComponentValueRef RangeTest MethodAnalysis Time Performed AtPathologist YrtocxkicNhmjvr74.266.6 - 1,000 ng/mL05/02/2025 6:48 PM [facility] ([facility])Specimen (Source)Anatomical Location / LateralityCollection Method / VolumeCollection TimeReceived TimeBloodVenous blood specimen / UnknownVenipuncture / Aolqymu3705/02/2025 5:46 AM EDT1 6:07 AM EDT Narrative Authorizing ProviderResult TypeResult StatusEh SNEED BLOOD ORDERABLESFinal ResultPerforming OrganizationAddressCity/State/ZIP CodePhone Number [facility]) [address] [place] [address] * Ferritin (05/02/2025 5:46 AM EDT)ComponentValueRef RangeTest MethodAnalysis TimePerformed AtPathologist GdsocmytkVjbyrula014.011.0 - 307.0 ng/mL05/02/2025 6:48 PM [facility] ([facility])Specimen (Source)Anatomical Location / LateralityCollection Method / VolumeCollection TimeReceived TimeBloodVenous blood specimen / UnknownVenipuncture / Jmpwkdh1005/02/2025 5:46 AM EDT1 6:07 AM EDT Narrative Authorizing ProviderResult TypeResult StatusEh SNEED BLOOD ORDERABLESFinal ResultPerforming OrganizationAddressty/State/ZIP CodePhone Number [facility]) [address] [place] [address] * Vitamin B12 (05/02/2025 5:46 AM EDT)ComponentValueRef RangeTest MethodAnalysis TimePerformed AtPathologist SignatureVitamin B-72746577 - 914 pg/mL05/02/2025 6:48 PM [facility] ([facility])Comment: REFERENCE RANGES: 180-914 pg/mL ??Normal 145-179 pg/mL ??Indeterminate <145 pg/mL Deficient Specimen (Source)Anatomical Location / LateralityCollection Method / Volume Collection TimeReceived TimeBloodVenous blood specimen / UnknownVenipuncture / Dpbvbke8105/02/2025 5:46 AM EDT1 6:07 AM EDT Narrative Authorizing ProviderResult TypeResult StatusEh Higuera [facility] BLOOD ORDERABLESFinal ResultPerforming OrganizationAddressCity/State/ZIP CodePhone Number [facility] ([facility]) [address] [place] [address] * (ABNORMAL) B-type natriuretic peptide (05/02/2025 12:24 AM EDT)ComponentValue Ref RangeTest MethodAnalysis TimePerformed AtPathologist SignatureBNP1,236(H)0 - 100 pg/mL05/02/2025 1:10 AM [facility] ([facility])Specimen (Source) Anatomical Location / LateralityCollection Method / VolumeCollection Time Received TimeBloodVenous blood specimen / UnknownVenipuncture / Unknown 05/02/2025 12:24 AM EDT1 12:33 AM EDT Narrative Authorizing ProviderResult TypeResult StatusKerline Patel [facility] BLOOD ORDERABLESFinal ResultPerforming OrganizationAddressCity/State/ZIP CodePhone Number [facility]) [address] [place] [address] * Magnesium (05/02/2025 12:24 AM EDT)ComponentValueRef RangeTest MethodAnalysis TimePerformed AtPathologist SignatureMagnesium2.11.9 - 2.7 mg/dL05/02/2025 1:00 AM [facility] ([facility])Specimen (Source)Anatomical Location / LateralityCollection Method / VolumeCollection TimeReceived TimeBloodVenous blood specimen / UnknownVenipuncture / Sysxtql1105/02/2025 12:24 AM EDT 05/02/2025 12:37 AM EDT Narrative Authorizing ProviderResult TypeResult StatusOsayovani Jorge [facility] BLOOD ORDERABLESFinal ResultPerforming OrganizationAddressCity/State/ZIP CodePhone Number [facility]) [address] [place] [address] * (ABNORMAL) Hemoglobin A1c (07/10/2020 7:09 PM EST)ComponentValueRef RangeTest MethodAnalysis TimePerformed AtPathologist SignatureHemoglobin A1C6.2(H)4.0 - 6.0 %LAB CONVERSIONSEstimated Average Dnenfrz666tgvx/LLAB CONVERSIONSSpecimen (Source)Anatomical Location / LateralityCollection Method / [...] (Latest Code Status on File) Date ActivatedDate CnwincmzpepLlwtcqbq32/30/2025 8:06 PM05/04/2025 7:17 PM Care Teams Team MemberRelationshipSpecialtyStart DateEnd Date John Perdomo DO [address] [place] [address] PCP - GeneralFamily Tfykqoiq05/18/25
--- OUTSIDE RECORDS SUMMARY | 2025-05-26 10:36 | XMS_ITS | Encounter Summary ---
Author Organization [facility] Address [address] [place] [address] Care Team Providers Care Inspector Health Care Facilities Name Role Phone John Perdomo DO Primary Care Provider [phone] Encounter Details DateTypeDepartmentCare Team (Latest Contact Info)Bfnpgjluqcp43/18/2025Telephone [facility] Heart at [facility] [address] [place] [address] Julita Scherer MA Social History [...] CommentsUnknownSex and Gender InformationValueDate RecordedSex Assigned at Qmhszp2105/19/2022 6:11 PM ESTLegal ZtdAspfym68/30/2022 12:22 AM EDTGender MwykzbzvIuneud40/17/2022 6:11 PM ESTSexual OrientationHeterosexual or Straight 05/19/2022 6:11 PM ESTdocumented as of this encounter Functional Status * BPAnswerDate of IisbiqtdtkTihjsr747/56107/20/2024 9:54 AM Mounika Wilde MA * PulseAnswerDate of WhysotcmhjOqfndc1366/18/2025 9:54 AM Mounika Wilde MA * Audit Alcohol ScreeningQuestionAnswerDate of AssessmentAuthorHow often do you have a drink containing alcohol? 10:00 AM Mounika Wilde MA * Patient PositionAnswerDate of FanizkmhtgMeeazxTokwzze92/18/2025 9:54 AM Mounika Matute MA * BPAnswerDate of BthrltojzoEebkul541/5611 9:54 AM Mounika Wilde MA * PulseAnswerDate of SbidkwlgwbTjsajg9106/18/2025 9:54 AM Mounika Wilde MA * WzO5VtdxgvWsad of KkjnpwxhytAkveig8859/18/2025 9:54 AM Mounika Wilde MA * BP LocationAnswerDate of AssessmentAuthorRight arm05/20/2025 9:54 AM Mounika Matute MA * Audit Alcohol ScreeningQuestionAnswerDate of AssessmentAuthorHow often do you have a drink containing alcohol? 10:00 AM Mounika Wilde MA * Patient PositionAnswerDate of NgzsaaxsppRuvqwvYkxpiuq25/18/2025 9:54 AM Mounika Matute MA documented as of this encounter Plan of Treatment DateTypeDepartmentCare Team (Latest Contact Info)Zzlkygvilcg26/05/2025 1:00 PM ESTOffice Visit [facility] [address] [place] [address] Bran Fish MD [address] [facility] [address] [facility] [place] [address] documented as of this encounter Visit Diagnoses Not on filedocumented in this encounter Care Teams Team MemberRelationshipSpecialtyStart DateEnd Date John Perdomo DO [address] [place] [address] PCP - GeneralFamily Rmwbypiv20/18/25documented as of this encounter
--- OUTSIDE RECORDS SUMMARY | 2025-05-26 10:36 | XMS_ITS | Clinical Summary ---
Author Organization [facility] Address [address] [facility] [place] [address] Care Team Providers Care Maintenance Mechanic Technician Name Role Phone John Perdomo MD Unavailable [phone] Unallocated, Noms Provider MD Primary Care Provi kortney Allergies Active AllergyReactionsCriticalityNoted DateCommentsErythromycinAnaphylaxis, Other,VzfcnmhDibz23/08/2022Erythromycin NhdvYdehzuqovweIxru21/08/2022 FuvuntuacdpfiWydjs46/08/2022enicillin NKjjog2305/08/2023enicillinsHives 05/10/20222162TiubotyiaoluigNactOwy85/04/2024 Medications MedicationSigDispense QuantityRefillsLast FilledStart DateEnd DateStatus potassium [...] other day.Active ergocalciferol (Vitamin D-2) 1.25 MG (22424 UT) capsule Take 1 capsule by mouth [...] 109506Active Active Problems ProblemNoted DateDiagnosed DateNontoxic multinodular vmuaic0409/27/2023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 type1 diabetes cqozflgx29/06/2023orneal scar, right eye05/08/2023ry eyes 05/08/2023rimary open angle glaucoma (POAG) of both eyes, mild stage05/08/2023 Encounters DateTypeDepartmentCare UlhqOogtznivazl29/21/2025Refill [facility] [address] [place] [address] Johnathon Yanez, Primary open angle glaucoma (POAG) [...] CommentsUnknownSex and Gender InformationValueDate RecordedSex Assigned at Gagzrc4205/01/2023 9:06 AM EDTLegal AedDqonzl53/01/2023 8:34 PM EDTGender Identity Gnupsj1905/01/2023 9:06 AM EDTSexual OrientationNot on file Last Filed Vital Signs Vital SignReadingTime TakenCommentsBlood Ntqqksjh365/52009/27/2023 11:29 AM EDT Pulse--Temperature--Respiratory Rate--Oxygen Saturation--Inhaled Oxygen Concentration--Pwvgzx23.9 kg (132 lb)09/27/2023 11:29 AM UYIFmjnch294.2 cm (4' 8 )09/27/2023 11:29 AM EDTBody Mass Index29.59009/27/2023 11:29 AM EDT Plan of Treatment DateTypeDepartmentCare Team (Latest Contact Info)Fwqzqmnpneb68/02/2025 1:15 PM ESTOffice Visit [facility] [address] [place] [address] Johnathon Yanez DO [address] [place] [address] Health MaintenanceDue DateLast DoneCommentsCT Pueghfvzxqrb1950olonoscopy 1950olorectal Cancer Ofnjhzkbh1950FIT-DNA1950FIT1950 FOBT1950Medicare Annual Wellness (AWV)04/23/19515496Lebdniwsdsuaz1950 Diabetes: Urine Protein Hexcybaor37/22/1970Pneumococcal Vaccine: 65+ Years (1 of 2 - PCV)04/23/19704828Wrvxqpgdz64/22/1991Diabetes: Hemoglobin A1C10/08/2020 07/10/2020OVID-19 Vaccine (1 - 2024- season)2025Influenza Vaccine (#1) 2025Diabetes: Retinopathy Gxwjqnupt90/27/70829511/26/2024, 11/26/2024, 11/26/2024, Additional history exists Insurance * Guarantor: Claudia Polo EAccount TypeRelation to PatientDate of BirthPhone Billing AddressPersonal/QtgzidHftb1950 [address] [place] [address] Care Teams Team MemberRelationshipSpecialtyStart DateEnd Date Unallocated, Noms MD Marcelo [address] [place] [address] PCP - GeneralFamily Medicine08/18/23 John Perdomo MD [address] [place] [address] Referring PhysicianOrthopaedic Sofirhl77/6/23
--- OUTSIDE RECORDS SUMMARY | 2025-05-26 10:44 | XMS_ITS | CCD ---
Author Organization [facility] Care Team Providers Care Packaging [employer] Supp[employer] Distributor Name Role Phone JOHN PERDOMO Referring Unavailable [...] Provider John Perdomo DO Primary Care Provider [phone] Geneva Jenkins MD Attending Provider [phone] KARTHIK FISH Referring Unavailable DOTTIEMIGNON DAWIT Admitting Unavailable EH HIGUERA Attending Unavailable DEACON TO Attending Unavailable KARTHIK FISH Attending Unavailable KARTHIK FISH Attending Unavailable EH HIGUERA Referring Unavailable HE HIGUERA Referring Unavailable EH HIGUERA Referring Unavailable DEACON TO Attending Unavailable Allergies Allergy ClassificationReported Allergen(s)Allergy TypeDate of OnsetReaction(s) FacilityOpioid Agonists (1 source)HYDROmorphoneDrug Rdtlghz70-83-6561JgblzjjKettering Health PreblePenicillins (antibiotic) (1 source)Penicillin G BenzathineDrug Gxzlrvo33-08-5314pmmnpEnifakqyqAultman Hospitalpironolactone (1 source)SpironolactoneDrug Zagakzx44-19-7890qqwhUtpumrxdaMiddletown Hospital (2 sources)Erythromycin; Translations: [ERYTHROMYCIN]Drug Ukespoo90-99-3554Goa [facility] Repository (2 sources)HYDROmorphoneDrug Sjgyxuv29-73-3125Fbw [facility] Repository (2 sources)Penicillins; Translations: [PENICILLINS]Drug allergy (disorder) 68-62-8179Ffi [facility] Repository (20 sources)ErythromycinDrug Yyxjlgq45-82-1132eincwxsvfmo, Other, UnknownNOME Healthcare (20 sources)HYDROmorphone; Translations: [HYDROMORPHONE]Drug Badmlju32-48-2546 [facility] (20 sources)PenicillinDrug AllergyUnknowUniversity Health [facility]wood [facility] Center Mobile Messenger Other (20 sources)Penicillin G BenzathineDrug kfanuta39-91-6242fytarMmpbtltnbUniversity Hospitals [facility] (14 sources)Erythromycin; Translations: [ERYTHROMYCIN BASE]Drug Allergy 08-31-7148CmqyzxdvmhkXlw [facility] Repository (1 source)PenicillinDrug AllergyOhiohealth Dublin Methodist Hospital Repository (9 sources)Spironolactone; Translations: [SPIRONOLACTONE]Drug Owbxocy16-30-6091 [facility] (6 sources)Penicillin GDrug Qazwzqf44-49-1822XwrjvPGUJ Healthcare (5 sources)PenicillinsDrug Smviurv31-24-2084GctysNWJE Healthcare (5 sources)SpironolactoneDrug Wefbjjd34-39-9364CdznAZNP Healthcare Medications Current Medications MedicationDrug Class(es)DatesSig (Normalized)Sig (Original)allopurinol 100 mg oral tablet (20 sources)Xanthine Oxidase InhibitorStart: 20-50-6630nkca 1 tablet by mouth once dailyAllopurinol 100 mg tablet Active 100 MG PO Daily April 22, 2025 11:37am Hyperuricemia 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 inflammatory arthritis and tophaceous disease Complies with drug therapyStart: 03-24-2025 End: 93-80-7299dpot 1 tablet by mouth once dailyAllopurinol 100 mg tablet Discontinued 0 .ROUTE .COMPLEX 90 March 24, 2025 12:12pm April 22, 2025 11:40am Hyperuricemia 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 inflammatory arthritis and tophaceous disease TAKE 1 TABLET BY MOUTH EVERY DAYStart: 09-03-2024 End: 26-47-5225gmjw 1 tablet by mouth once dailyAllopurinol 100 mg tablet Discontinued 100 MG PO Daily September 03, 2024 4:38pm March 24, 2025 12:13pm Hyperuricemia 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 inflammatory arthritis and tophaceous diseaseStart: 09-06-2023 End: 93-99-6162vsay 1 tablet by mouth once dailyAllopurinol 100 mg tablet Discontinued 0 .ROUTE .COMPLEX 90 July 29, 2024 7:27pm September 03, 2024 4:42pm Hyperuricemia 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 inflammatory arthritis and tophaceous disease TAKE 1 TABLET BY MOUTH EVERY DAYStart: 09-05-2023 End: 08-52-3926spcg 1 tablet by mouth once dailyAllopurinol 100 [...] Inhibitor, Nonsteroidal Anti-inflammatory Drug Start: 09-25-2023 End: 47-89-1271aycx 1 tablet by mouth once dailyAspirin 81 [...] tablet (20 sources)HMG-CoA Reductase InhibitorStart: 12-22-2022 End: 22-22-4841mgyt 1 tablet by mouth at bedtimeatorvastatin (Lipitor) [...] oral tablet (20 sources)Loop DiureticStart: 04-22-2025 End: 92-73-3502fpvw 1 tablet by mouth once dailyBumetanide 2 mg tablet Active 2 MG PO Daily April 22, 2025 11:54am Complies with drug therapyStart: 09-25-2023 End: 23-30-2796xuuy 1 tablet by mouth twice dailyBumetanide 2 mg tablet Discontinued 3 MG PO Twice daily January 08, 2024 1:04pm April 22, 2025 11: 40amStart: 09-25-2023 End: 63-27-2712rdne 3 mg by mouth twice dailyBumetanide Active [...] sources)Carbonic Anhydrase Inhibitor, beta-Adrenergic BlockerStart: 05-15-2024 End: 99-08-1437alxb 1 drop(s) into the eye(s) in the morningdorzolamide-timolol (Cosopt) 2-0.5 % ophthalmic solution Indications: Primary open angle glaucoma (P OAG) of both eyes, mild stage ADMINISTER 1 DROP INTO BOTH EYES IN THE MORNING AND 1 DROP BEFORE BEDTIME. 30 mL 1 03/24/2025 03/24/2026 ActiveStart: 09-25-2023 dorzolamide-timolol (Cosopt) 2-0.5 % ophthalmic solution Twice daily 09/25/2023 ActiveStart: 50-02-5029gbzr 1 drop(s) into the eye(s) twice dailyDorzolamide- [...] mg oral capsule (20 sources)Provitamin D2 CompoundStart: 92-55-7284Lgwztgiaqgfmxi (Vitamin D2) 1,250 mcg (50,000 unit) capsule Active 03927 UNIT PO .COMPLEX 7 1 July 29, 2024 7:32pm 50,000 units orally every other week; Complies with drug therapy Start: 09-25-2023 End: 19-83-6355omuf 1 capsule by mouth every weekErgocalciferol (Vitamin D2) 1,250 mcg (50,000 unit) capsule Discontinued 67120 UNIT PO EVERY 2 WEEKS September 25, 2023 12:00am July 29, 2024 7:33pm FreeTextSig: TAKE 1 CAPSULE BY MOUTH ONE TIME PER WEEK; Note: Source Status: Start; Refills: 2; Qty: 12 Capsule; Provider: Mary Grace Bean ( )take 1 capsule by mouth every weekVitamin D (Ergocalciferol) 1.25 MG (62465 UT) TAKE 1 CAPSULE BY MOUTH ONE TIME PER WEEK for 84 Activetake 1 capsule by mouth every other week Ergocalciferol 1.25 MG (36193 UT) 1 capsule Orally Q2 week for 90 days Active ferrous sulfate 325 mg oral tablet (20 sources)Start: 09-19-2024 End: 07-87-0492nomn 1 tablet by mouth every other dayFerrous Sulfate 325 mg (65 mg iron) tablet Active 0 .ROUTE .COMPLEX 45 March 24, 2025 12:12pm Anemia of renal disease Chronic kidney disease, unspecified Anemia in chronic kidney disease TAKEONE TABLET BY MOUTH EVERY OTHER DAY FOR 90 DAYS Complies with drug therapyStart: 09-03-2024 End: 50-15-7892Zcpsfom Sulfate 325 mg (65 mg iron) tablet Discontinued 325 MG PO Every 48 hours September 03, 2024 4:40pm September 19, 2024 1:26pm Anemia of renal disease Chronic kidney disease, unspecified Anemia in chronic kidney disease Start: 09-06-2023 End: 06-71-1478zqtp 1 tablet by mouth every other dayFerrous Sulfate 325 mg (65 mg iron) tablet Discontinued 0 .ROUTE .COMPLEX 45 March 1249:48am September 03, 2024 4:42pm Anemia of renal disease Chronic kidney disease, unspecified Anemia inchronic kidney disease TAKE ONE TABLET BY MOUTH EVERY OTHER DAY FOR 90 DAYSStart: 95-27-4653dqvs 1 tablet by mouth every other dayFerrous Sulfate Active 0 .ROUTE .COMPLEX 45 September 06, 2023 4:49pm TAKE 1 TABLET BY MOUTH EVERY OTHER DAYStart: 09-05-2023 End: 65-37-9095jeai 1 tablet by mouth every other dayFerrous [...] acid 1 mg oral tablet (1 source)Start: 84-00-1313wrfk 1 tablet by mouth once dailyFolic Acid 1 mg tablet Active 1 MG PO Daily April 22, 2025 12:00am Complies with drug therapyhydrALAZINE hydrochloride 25 mg oral tablet (20 sources)Arteriolar VasodilatorStart: 95-61-6470nlqp 2 tablets by mouth twice dailyHydralazine 25 mg tablet Active 50 MG PO Twice daily April 22, 2025 12:02pm Complies with drug therapyStart: 04-22-2025 End: 64-87-3416gwqo 1 tablet by mouth twice dailyHydralazine 25 mg tablet Discontinued 25 MG PO Twice daily April 22, 2025 11:38am April 12:02pmStart: 09-25-2023 End: 32-00-7877keru 1 tablet by mouth three times dailyHydralazine 25 mg tablet Discontinued 25 MG PO Three times daily January 08, 2024 1:09pm April 22, 2025 11:40amStart: 29-93-3320gsxx 1 tablet by mouth three times dailyhydrALAZINE (Apresoline) 50 MG tablet TAKE 1 TABLET BY MOUTH THREE TIMES A DAY FOR 90 DAYS 08/11/2022 ActiveStart: 67-91-8086lbng 1 tablet by mouth every twelve hours hydrALAZINE HCl 25 MG 1 tablet with food Orally bid for 90 day(s) Aug, Activetake 1 tablet by mouth every eight hourshydrALAZINE HCl 25 MG 1 tablet with food Orally Three times a day for 90 day(s) Active3 ml insulin glargine 100 unt/ml pen injector (12 sources)Insulin AnalogStart: 23-78-5317ficjnl 10 [IU] by subcutaneous injection once as neededInsulin Glargine (Basaglar Kwikpen U-100 Insulin) 100 unit/mL (3 mL) insulin pen Active 10 UNIT SUBCUT Once as needed April 22, 2025 11:38am Complies with drug therapyStart: 09-25-2023 End: 61-36-5306Kmnrhgs Glargine (Basaglar Kwikpen U-100 Insulin) 100 unit/mL [...] BY MOUTH EVERY OTHER DAY for 90 Abjpwq24 hr isosorbide mononitrate 30 mg extended release oral tablet (5 sources)Nitrate VasodilatorStart: 77-86-9894gkzu 1 tablet by mouth once daily in the morningisosorbide mononitrate ER (Imdur) 30 MG 24 hr tablet TAKE 1 TABLET BY MOUTH EVERY MORNING *DO NOT CRUSH OR CHEW* 08/17/2023 Activeisosorbide dinitrate 30 mg oral tablet (16 sources)Nitrate VasodilatorStart: 64-13-8084fzcv 1 tablet by mouth once dailyIsosorbide Dinitrate [...] sodium 0.075 mg oral tablet (20 sources)l-ThyroxineStart: 92-36-7586axbn 1 tablet by mouth once daily Levothyroxine 75 mcg tablet Active 75 MCG PO Daily January 29, 2025 12:00am Complies with drug therapyStart: 09-25-2023 End: 16-79-9646hpvg 1 tablet by mouth once dailyLevothyroxine 50 [...] sodium 0.005 mg oral tablet (5 sources)l-TriiodothyronineStart: 55-33-2184pkje 2 tablets by mouth once daily liothyronine (Cytomel) 5 MCG tablet TAKE 2 TABLETS BY MOUTH ONCE A DAY 08/11/2023 ActivemetOLazone 2.5 mg oral tablet (20 sources)Thiazide-like DiureticStart: 59-95-1841pycf 1 tablet by mouth two times weekly as neededMetolazone 2.5 mg tablet Active 2.5 MG PO .COMPLEX as needed April 22, 2025 11:38am 2.5 mg orally twice a week PRN; Complies with drug therapyStart: 09-25-2023 End: 29-40-1108Ypdpmrqbyw 2.5 mg tablet Discontinued 2.5 MG PO [...] meq extended release oral tablet (20 sources)Start: 31-40-3427dptu 1 tablet by mouth oncePotassium Chloride 20 mEq tablet extended release Active 20 MEQ PO Once April 22, 2025 11:36am C omplies with drug therapyStart: 09-25-2023 End: 46-92-3368iwpi 40 mEq by mouth three times dailyPotassium Chloride Active 40 MEQ PO Three times daily 540 90 November 16, 2023 1:50pmStart: 04-10-2023 End: 87-01-8909pvbx 2 tablets by mouth in the morning, [...] (20 sources)Dihydropyridine Calcium Channel BlockerStart: 10-28-2020 End: 85-08-2855tvvd 1 tablet by mouth once dailyAmlodipine 10 mg tablet Discontinued 1 TAB PO Daily September 25, 2023 12:00am September 03, 2024 4:42pm FreeTextSi tablet Orally Once a day; Note: Source Status: Taking; Provider: Mary Grace Bean ( )doxazosin 4 mg oral tablet (20 sources)alpha-Adrenergic BlockerStart: 01-08-2024 End: 22-97-4836bvcw 6 mg by mouth twice dailyDoxazosin 4 mg tablet Discontinued 6 MG PO Twice daily January 08, 2024 1:05pm April 22, 2025 11:39amStart: 09-25-2023 End: 50-63-7505jtwh 6 mg by mouth twice dailyDoxazosin Active 6 MG PO Twice daily January 08, 2024 1:05pmStart: 10-24-2022 End: 95-43-2940mxscziswj (Cardura) 4 MG tablet TAKE 1 AND 1/2 TABLETS BY MOUTH TWICE DAILY FOR 90 DAYS 10/24/2022 Activemetoprolol tartrate 50 mg oral tablet (20 sources)beta-Adrenergic BlockerStart: 01-08-2024 End: 80-67-9372Gqfrayxhqj Tartrate 50 mg tablet Discontinued 75 MG PO Twice daily January 08, 2024 1:07pm April 22, 2025 11:40amStart: 09-25-2023 End: 74-53-6852Usdypxwpev Tartrate 50 mg tablet Discontinued MG PO September 25, 2023 12:00am January 08, 2024 1:08pm FreeTextSi 1/2 tablet with food Orally Twice a day; Note: Source Status: Taking; Provider: Mary Grace Bean ( )Start: 09-25-2023 End: 82-42-3720lvdw 75 mg by mouth twice dailyMetoprolol Tartrate Active 75 MG PO Twice daily January 08, 2024 1:07pmStart: 30-12-2379vutl 1.5 tablets by mouth in the morningmetoprolol tartrate (Lopressor) 50 MG tablet Take 1.5 tablets by mouth in the morning and 1.5 tablets before bedtime. 09/13/2022 ActiveMetoprolol Tartrate 50 MG 1 1/2 tablet with food Orally Twice a day Activemidodrine hydrochloride 5 mg oral tablet (10 sources)alpha-Adrenergic AgonistStart: 01-08-2024 End: 95-67-1078vstt 1 tablet by mouth three times daily as neededMidodrine 5 mg tablet Discontinued 5 MG PO Three times daily as needed January 08, 2024 12:00am April 22, 2025 11:39am Problems Active Problems Problem ClassificationProblemDateDocumented DateEpisodic/ChronicAcute and unspecified renal failure (2 sources)Acute renal failure syndrome; Translations: [Acute kidney failure, unspecified]84-53-7037JdixgqynSxatqdk kidney disease (20 sources)Chronic kidney disease stage 4; Translations: [Chronic kidney disease, stage 4 (severe)]Onset: 05-18-2021 Resolved: 03-94-1165ShdamjaDxxpejvgyq heart failure; nonhypertensive (15 sources)Chronic diastolic (congestive) heart failure; Translations: [Acute combined systolic (congestive) and diastolic (congestive) heart failure]Onset: 17-45-6340JoviqhjEiybnmhx atherosclerosis and other heart disease (5 sources)Atherosclerotic heart disease of [place] coronary artery without angina pectoris; Translations: [Coronary arteriosclerosis]Onset: 04-04-2022 ChronicCoronary atherosclerosis and other heart disease (2 sources)Presence of aortocoronary bypass graft; Translations: [Presence of aortocoronary bypass graft]Onset: 10-06-7067DuuumgefIiyfkcmuie and other anemia (20 sources)Anemia of renal disease; Translations: [Anemia in chronic kidney disease]03-07-8743WikojdoDvpakvwuok and other anemia (2 sources)Anemia in chronic kidney diseaseChronicDiabetes mellitus with complications (20 sources)Disorder of kidney due to diabetes mellitus; Translations: [Type 2 diabetes mellitus with diabetic chronic kidney disease]Onset: 05-18-2021 Resolved: 83-90-5969QbygisfJerfhjmma of lipid metabolism (14 sources)Hyperlipidemia; Translations: [Hyperlipidemia, unspecified]Onset: 887787-37-8402BxwbnyrWbcqhyufy hypertension (9 sources)Essential (primary) hypertension; Translations: [Hypertensive disorder]Onset: 06-14-3582XzesinrAljct and electrolyte disorders (20 sources)Hypokalemia; Translations: [Hypokalemia]Onset: 05-18-2021 Resolved: 01-73-1597FiilqdhlOwaldilldkznn symptoms and ill-defined conditions (20 sources)Other microscopic hematuria; Translations: [Microscopic hematuria] Onset: 05-18-2021 Resolved: 39-02-4526ToyfrclkOpofmiyr (9 sources)Primary open angle glaucoma; Translations: [Primary open-angle glaucoma, bilateral, mild stage]Onset: 203039-36-5532EylkixqBfcjr valve disorders (1 source)Rheumatic disorders of both mitral and tricuspid valves; Translations: [RHEUMATIC D/O MITRAL TRICUSPID VALV]Onset: 10-13-0708HbsxaqjQqzsu valve disorders (2 sources)Heart murmur; Translations: [Heart Murmur]Onset: 28-44-2172Jejyzdjy Hypertension with complications and secondary hypertension (20 sources)Chronic kidney disease due to hypertension; Translations: [Hypertensive chronic kidney disease withstage 1 through stage 4 chronic kidney disease, or unspecified chronic kidney disease]Onset: 05-18-2021 Resolved: 95-00-1175LibyuaaLigobyr and fatigue (2 sources)Fatigue; Translations: [Fatigue]Onset: 85-88-4268YhqwmaqaDpxgfasydhj chest pain (2 sources)Chest pain; Translations: [Chest Pain]Onset: 41-76-4960Qsiyktdv Nutritional deficiencies (6 sources)Iron deficiency; Translations: [IRON DEFICIENCY]Onset: 05-18-2021 Resolved: 60-40-9486ToppucbxRnulj connective tissue disease (20 sources)Full thickness rotator cuff tear; Translations: [Complete rotator cuff tear or rupture of left shoulder, not specified as traumatic]EpisodicOther diseases of kidney and ureters (20 sources)Secondary hyperparathyroidism; Translations: [Secondary hyperparathyroidism of renal origin]86-42-5291QlbilsfXibtn diseases of kidney and ureters (11 sources)Secondary hyperparathyroidism of renal origin; Translations: [Secondary hyperparathyroidism (of renal origin)]Onset: 05-18-2021 Resolved: 70-61-0760NaoqxipEutgu lower respiratory disease (2 sources)Shortness of breath; Translations: [Shortness of Breath]Onset: 04-86-5148AkscldpgFejpq lower respiratory disease (2 sources)Cough; Translations: [Cough]Onset: 96-11-3642YdyggmygXqwft non- traumatic joint disorders (20 sources)Arthralgia of the lower leg; Translations: [Right knee pain]Episodic Other nutritional; endocrine; and metabolic disorders (12 sources)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 inflammatory arthritis and tophaceous disease; Translations: [Other abnormal blood chemistry]Onset: 05-18-2021 Resolved: 85-13-6200LqmydhcmObkfg nutritional; endocrine; and metabolic disorders (9 sources)Hyperuricemia; Translations: [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 inflammatory arthritis and tophaceous disease]38-56-9127FilvmtvvGxhusaav codes; unclassified (2 sources)Edema; Translations: [Edema]Onset: 31-58-5792GoswktwfUeiskdq disorders (20 sources)Non-toxic multinodular goiter; Translations: [Nontoxic multinodular goiter]Onset: 09-02-9638VtoricxTsvwoizpuoap (3 sources)CONTACT W/AND (SUSP) EXPOS COVID-19; Translations: [CONTACT W/AND (SUSP) EXPOS COVID-19]Onset: 12-10-2021 Past or Other Problems Problem ClassificationProblemDateDocumented DateEpisodic/ChronicOther bone disease and musculoskeletal deformities (1 source)Other specified disorders of bone density and structure, right forearm; Translations: [OTH D/O BONEDEN STRUCT RT FORARM]Onset: 06-04-2022 EpisodicOther eye disorders (8 sources)Scar of cornea of right eye; Translations: [Unspecified corneal scar and opacity]Onset: 790899-32-1502PnmspkqkDqmdw eye disorders (8 sources)Dry eyes; Translations: [Dry eye syndrome of bilateral lacrimal glands]Onset: 856064-29-9746AmnzvqtuZtimy lower respiratory disease (5 sources)Shortness of breath; Translations: [SHORTNESS OF BREATH]Onset: 66-01-0414PfhbiwjtGelie lower respiratory disease (5 sources)Other forms of dyspnea; Translations: [OTHER FORMS OF DYSPNEA]Onset: 67-11-5134FkcvsicgKkvkc non-traumatic joint disorders (4 sources)Pain in right elbow; Translations: [PAIN IN RIGHT ELBOW]Onset: 52-42-6521CpsgznouHbdqqout codes; unclassified (1 source)Localized edema; Translations: [LOCALIZED EDEMA]Onset: 06-18-2022 EpisodicUnclassified (20 sources)Sprain of right knee; Translations: [Right knee sprain]Unclassified (1 source)CONTACT W/AND (SUSP) EXPOS COVID-19; Translations: [CONTACT W/AND (SUSP) EXPOS COVID-19]Onset: 12-07-2021 Results Test NameValueInterpretationReference ZitruDmoyjdig21jo 09-84-430003Oqaezi patient to make her aware there are no DVT in either leg per LE venous ultrasound.NormalUnBarberton Citizens Hospital36Nvm dalia took care of this, pt having an us of both legs and going to watch for increased swelling/sob/weight gainNormalUniversity of [facility] Telephoneon [id number] Claudia Estrella 1950 F Date Provider Department Center 05/07/2025 FRANCIS MUÑOZ [facility] Family History Problem Relation Age of Onset Heart attack Mother Heart failure Mother Heart attack Father Family Status - Relation Status Age at Mother Father DeceasedNormalUniKettering Health [facility]36on Discharge date: 05/04/25 Call date: 05/05/25 Spoke with: patient HF Follow-up date: 05/20/25 Med reconciliation completed: pt declined Questions/Concerns: Patient stated she has been a little tired since discharge, but she denied any CP and stated her SOB is back to baseline. 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 Follow up appts reviewed with pt. Pt asked about cardiac rehab and mentioned she lives in [place]. Trolley [employer] Over[employer]uler informed pt she can have the referral faxed to the cardiac rehab closer to her home. Patient is aware of her follow up appt with cardiology. T[employer]uler offered to move her follow-up to a sooner date but pt declined. Pt agreed to call anything changes and she would like to be seen sooner.NormalUnBarberton Citizens HospitalTelephoneon [phone] [id number] Claudia Estrella 1950 F Date Provider Department Center 05/05/2025 [id number] [facility] [place] HeartVAS Family History Problem Relation Age of Onset Heart attack Mother Heart failure Mother Heart attack Father Family Status - Relation Status Age at Mother Father Reason for Visit and Comments: HF post discharge call and inpatient survey sent. [Other]NormalUnBarberton Citizens HospitalBASIC METABOLIC PANELon 44-46-9354Pngid gap [Moles/Vol]14 mmol/LNormal7-20UnBarberton Citizens HospitalComment on above:Performed By: #### [id number] #### [facility] (BEAKER) [address], [place] [address]Qkdbnal [Mass/Vol]8.6 mg/dLNormal8.6-10.3UnBarberton Citizens HospitalComment on above:Performed By: #### [id number] #### [facility] (BEAKER) [address], [place] [address]Jqhwuvwd [Moles/Vol]107 mmol/MZfxrcp99-393UzjflkoafqBarberton Citizens HospitalComment on above:Performed By: #### [id number] #### [facility] (BEAKER) [address] [place] [address]BV1 [Moles/Vol]21 mmol/XDifvpt25-69AlikmhxqxnBarberton Citizens HospitalComment on above:Performed By: #### [id number] #### [facility] ([facility]) [address] [place] [address]Nivtqbizvu [Mass/Vol]2.55 mg/dLHigh0.60-1.20UnBarberton Citizens HospitalComment on above:Performed By: #### [id number] #### [facility] ([facility]) [address] [place] [address]CCAPGRKIPV FILTRATION RATE ML/MIN/1.73 SQ M.XAVURBEQN08.2 mL/min/1.73m*2Low>60.0UnBarberton Citizens HospitalComment on above:Result Comment: [facility]???s estimated glomerular filtration rate (eGFR) will [...] group of individuals.Performed By: #### [id number] #### [facility] ([facility]) [address] [place] [address]Kdubfls [Mass/Vol]122 mg/yLBbxu02-613OwcaxoxvtxBarberton Citizens HospitalComment on above:Performed By: #### [id number] #### [facility] ([facility]) [address] [place] [address]Eetrbdyhu [Moles/Vol]4.0 mmol/LNormal3.5-5.1UnBarberton Citizens HospitalComment on above:Performed By: #### [id number] #### [facility] ([facility]) [address] [place] [address]Lsqzcb [Moles/Vol]138 mmol/IPenlve501-569MedsgcvsewBarberton Citizens HospitalComment on above:Performed By: #### [id number] #### [facility] ([facility] [address] [place] [address]Dscx nitrogen [Mass/Vol]64 mg/dLHigh7-25UnBarberton Citizens HospitalComment on above:Performed By: #### [id number] #### [facility] ([facility] [address] [place] [address]BWOE NITROGEN/CREATININE (MASS RATIO) IN SER/PLAS25.1Normal [facility] HospitalComment on above:Performed By: #### [id number] #### [facility] ([facility]) [address] [place] [address]CRNze 34-86-7398Esqfyxrttbg distribution width (RBC) [Ratio]15.6 %High11.5-15.0UnBarberton Citizens HospitalComment on above:Performed By: #### [id number] ####[facility] ([facility])[address] [place] [address] ERYTHROCYTE MEAN CORPUSCULAR HEMOGLOBIN CONCENTRATION (G/DL) BY KLRWSWWNV94.1 g/xEJofomy67.0-35.0UnBarberton Citizens HospitalComment on above:Performed By: #### [id number] ####[facility] ([facility])[address] [place], [place] [address]Waoultxhgu (Bld) [Volume fraction]26.0 %Low36.0-45.0UnBarberton Citizens HospitalComment on above:Performed By: #### [id number] ####[facility] ([facility] [place], [place] [address]Gwfpkmdsxo (Bld) [Mass/Vol]8.6 g/dLLow 12.0-15.0UnBarberton Citizens HospitalComment on above:Performed By: #### [id number] ####[facility] ([facility] [place], [place] [address]YJU (RBC) [Entitic mass]29.8 woPhtwos73.0-33.0UnBarberton Citizens HospitalComment on above:Performed By: #### [id number] ####[facility] ([facility])[address] [place] [address]WTO (RBC) [Entitic vol]90.0 mIEmwuhi45.0-98.0UnBarberton Citizens HospitalComment on above:Performed By: #### [id number] ####[facility] ([facility])[address] [place] [address]QWNCNSWOQ (10*3/UL) IN BLOOD AUTOMATED IBPRG259 10*3/jUAiktsu960-595TnybdfvglvBarberton Citizens Hospital Comment on above:Performed By: #### [id number] ####[facility] ([facility])[address] [place] [address]PEE (Bld) [#/Vol]2.89 10*6/uLLow3.80-5.00UnBarberton Citizens HospitalComment on above:Performed By: #### [id number] ####[facility] ([facility])[address] [facility] [place] [address]ETZ (Bld) [#/Vol]8.26 10*3/uLNormal4.00-10.60UnBarberton Citizens HospitalComment on above: Performed By: #### [id number] ####[facility] ([facility])[address] [place] [address]VBba 50-38-6531VC Attestation signed by Eh Higuera MD at [...] up with Cardiology (already scheduled) and Nephrology ([facility]). Internal Medicine Discharge Summary Final Discharge Diagnosis: Acute on chronic HFrEF Admission Diagnosis: Acute on chronic heart failure with preserved ejection fraction (HFpEF) ([facility]) [I50.33] Hospital course: 75-year-old female with [...] 05/20/2025 10:00 AM Deacon To CNP [facility] Your medication list PAUSE taking these [...] MOUTH EVERYDAY AT BEDTIME ergocalciferol 1.25 MG (42423 Units) capsule Commonly known as: Vitamin D-2 [...] midodrine 5 mg tablet (more content not included)...NormalUnBarberton Citizens HospitalNURSNOTE on 61-90-7830LVGBUKJNSd discharged with all belongings, discharge paperwork, and all questions answered to pt's satisfaction.NormalMagruder Memorial HospitalPOCT GLUCOSE METER UNSOLICITED RESULTSon 63-19-9278Ejwgnns [Mass/Vol]184 mg/dLHigh 70-105UnBarberton Citizens HospitalComment on above:Order Comment: Waived Testing in the ED is performed under the ED CLIA certificate #[id number].Result Comment: jarizmePerformed By: #### [id number] ####[facility] ([facility])[address] [place] [address] 66-69-868305Ncp patient is Moderately Stable - Low risk of patient condition declining or worsening The patient's goals for the shift include comfort, rest The clinical goals for the shift include VSS, safetyNormalUniversOhioHealth Southeastern Medical CenterBASIC METABOLIC PANELon 15-96-9694Lcgrd gap [Moles/Vol]14 mmol/L Normal7-20UnBarberton Citizens HospitalComment on above:Performed By: #### [id number] ####[facility] ([facility])[address] [place], [place] [address]Imhepbh [Mass/Vol]8.6 mg/dLNormal8.6-10.3UnBarberton Citizens HospitalComment on above:Performed By: #### [id number] ####[facility] ([facility])[address] [place], [place] [address]Iaihabor [Moles/Vol]108 mmol/OToam02-237ZrkieewsqwMagruder Memorial HospitalComment on above:Performed By: #### [id number] ####[facility] ([facility])[address] [place], [place] [address]WQ3 [Moles/Vol]20 mmol/DDoh28-16 Magruder Memorial HospitalComment on above:Performed By: #### [id number] ####[facility] ([facility])[address] [place], [place] [address]Qiemscewtk [Mass/Vol]2.76 mg/dLHigh0.60-1.20UnBarberton Citizens HospitalComment on above:Performed By: #### [id number] ####[facility] ([facility])[address] [place] [address]GZUDUPXLZH FILTRATION RATE ML/MIN/1.73 SQ M.UPMWUWLSY62.5 mL/min/1.73m*2Low>60.0UnBarberton Citizens HospitalComment on above:Result Comment: [facility]???s estimated glomerular filtration rate (eGFR) will [...] anyone group of individuals.Performed By: #### [id number] ####[facility] ([facility])[address] [place] [address]Mrcbmko [Mass/Vol]113 mg/iXHgdj00-538TbxvhpreabBarberton Citizens HospitalComment on above:Performed By: #### [id number] ####[facility] ([facility])[address] [place] [address]Wkanajxkn [Moles/Vol]4.0 mmol/L Normal3.5-5.1UnBarberton Citizens HospitalComment on above:Performed By: #### [id number] ####[facility] ([facility])[address] [place] [address] Sodium [Moles/Vol]138 mmol/ISywrpw393-725EpookokmxqBarberton Citizens Hospital Comment on above:Performed By: #### [id number] ####[facility] ([facility])[address] [place], [place] [address]Rlxc nitrogen [Mass/Vol]61 mg/dLHigh7-25UnBarberton Citizens HospitalComment on above:Performed By: #### [id number] ####[facility] ([facility])[address] [place] [address]GOAA NITROGEN/CREATININE (MASS RATIO) IN SER/PLAS22.1NormalUnBarberton Citizens HospitalComment on above:Performed By: #### [id number] ####[facility] ([facility])[address] [place] [address]RHOnr 65-29-3642Pssmsduydft distribution width (RBC) [Ratio] 15.5 %High11.5-15.0UnBarberton Citizens HospitalComment on above:Performed By: #### [id number] #### [facility] ([facility]) [address] [place] [place], [place] [address]YZCEKYLQRQT MEAN CORPUSCULAR HEMOGLOBIN CONCENTRATION (G/DL) BY FELPBUZSZ13.2 g/gLEhtkmv09.0-35.0UnBarberton Citizens HospitalComment on above:Performed By: #### [id number] #### [facility] ([facility]) [address] [place] [place], [place] [address]Onwkggrvmf (Bld) [Volume fraction]26.5 %Low36.0-45.0UnBarberton Citizens HospitalComment on above:Performed By: #### [id number] #### [facility] ([facility]) [address] [place], [place] [address]Fbtnebcial (Bld) [Mass/Vol]8.8 g/dLLow12.0-15.0UnBarberton Citizens HospitalComment on above:Performed By: #### [id number] #### [facility] ([facility]) [address] [facility] [place], [place] [address]CBB (RBC) [Entitic mass]29.7 ekOusqmz57.0-33.0UnBarberton Citizens HospitalComment on above:Performed By: #### [id number] #### [facility] ([facility]) [address] [place], [place] [address]JBS (RBC) [Entitic vol]89.5 gJDygbti81.0-98.0UnBarberton Citizens HospitalComment on above:Performed By: #### [id number] #### [facility] ([facility] [address] [place] [place], [place] [address]VQVJOZSWJ (10*3/UL) IN BLOOD AUTOMATED [id number] 10*3/uLNormal 150-400UnBarberton Citizens HospitalComment on above:Performed By: #### [id number] #### [facility] ([facility]) [address] [place] [place] [address]LJH (Bld) [#/Vol]2.96 10*6/uLLow3.80-5.00UnBarberton Citizens HospitalComment on above:Performed By: #### [id number] #### [facility] ([facility]) [address] [facility] [place], [place] [address]JMB (Bld) [#/Vol]9.33 10*3/uLNormal4.00-10.60UnBarberton Citizens HospitalComment on above:Performed By: #### [id number] #### [facility] ([facility]) [address] [facility] [place], [place] [address]IEWOROOho 86-95-4164CEWDXKK Attestation signed by Jazzmine Kelsey MD at [...] Faculty, Division of Nephrology, Department of Medicine, [facility]. Nephrology Consult Note Patient : Claudia Estrella; 75 y.o. Location: [id number]/3186-01 Attending: hE Higuera MD Admit Date: 05/01/2025 Hospital Day: 2 Reason for Consult: ORI on CKD stage 4, diuretic management. History of Present Illness: Claudia Estrella is a 75 y.o. female with PMH significant for CKD stage IV (baseline creatinine appears to be around 2-2.4), type 2 diabetes mellitus, and essential hypertension who was admitted to [facility] as a transfer from [facility] on 05/01/2025 after she initially [...] HGB 8.8 (L) 05/03/20 (more content not included)...NormalUnBarberton Citizens HospitalCREATININE, URINE, RANDOMon 34-54-4312Szmwojfgin (U) [Mass/Vol] 40.0 mg/kSPiwebx99-492OpvspjxrzjBarberton Citizens HospitalComment on above: Performed By: #### [id number] ####[facility] ([facility]))[address] [place], [place] [address]OATVRTJASYdr 66-99-2220Rhiiztjcg [Mass/Vol]4.2 mg/dLNormal 2.5-5.0UnBarberton Citizens HospitalComment on above:Performed By: #### [id number] #### [facility] (BEAKER) [address] [place], [place] [address]CVZG GLUCOSE METER UNSOLICITED RESULTSon 42-18-2509Wfvczae [Mass/Vol]168 mg/tRMsyu74-875PlwbpspwkhBarberton Citizens HospitalComment on above:Order Comment: Waived Testing in the ED is performed under the ED CLIA certificate #[id number].Result Comment: khnzlux79Hdjzauaqi By: #### [id number] ####[facility] ([facility])[address] [place], [place] [address]Dcgpnbs [Mass/Vol]187 mg/sOUtwh77-501VfebedsblhBarberton Citizens HospitalComment on above:Order Comment: Waived Testing in the ED is performed under the ED CLIA certificate #[id number].Result Comment: dlwufbg8Hgjdeghfn By: #### [id number] ####[facility] ([facility])[address] [place], [place] [address]Vmsmfbd [Mass/Vol]154 mg/oTWeqz51-898AgsxmnzstoBarberton Citizens HospitalComment on above:Order Comment: Waived Testing in the ED is performed under the ED CLIA certificate #[id number].Result Comment: [id number] By: #### [id number] ####[facility] ([facility])[address] [place], [place] [address]Xfskyct [Mass/Vol]126 mg/jKSfuk47-080AhzwzbngrmBarberton Citizens HospitalComment on above:Order Comment: Waived Testing in the ED is performed under the ED CLIA certificate #[id number].Result Comment: iemipse6Dxhhhaqho By: #### [id number] #### [facility] ([facility]) [address] [place], [place] [address]JFTDBZQ, URINE, RANDOMon 41-67-4111Chmdmek (U) [Mass/Vol]105.9 mg/dLNormalUniKettering Health TroyComment on above:Result Comment: There are no established reference values for random urine specimens.Performed By: #### [id number] #### [facility] ([facility]) [address] [place], [place] [address]QVQ, INTACTon 98-80-1239SYERHTKMUE INTACT (PG/ML) IN SER/IWZS274 pg/oCXukx70-97IdpmkumojuBarberton Citizens HospitalComment on above:Performed By: #### [id number] ####[facility] ([facility])[address] [place] [address] URINALYSISon 35-43-5310FGJAEWIYR, TOTAL PRESENCE IN URINENegativeNormalNegative [facility] HospitalComment on above:Performed By: #### [id number] ####[facility] ([facility])[address] [place], [place] [address]Ugbjsxf (U)Clear NormalClearUnBarberton Citizens HospitalComment on above:Performed By: #### [id number] ####[facility] ([facility] [place] [address] Color (U)Light-YellowNormalColorless, Yellow, Light-YellowUnBarberton Citizens HospitalComment on above:Performed By: #### [id number] ####[facility] ([facility])[address] [place], [place] [address]KVIVSIN (MG/DL) IN URINENormalNormal NormalUnBarberton Citizens HospitalComment on above:Performed By: #### [id number] ####[facility] ([facility])[address] [place] [address] HEMOGLOBIN PRESENCE IN URINENegativeNormalNegativeUnBarberton Citizens HospitalComment on above:Performed By: #### [id number] ####[facility] ([facility])[address] [place], [place] [address]Gsoxwsr Ql (U)NegativeNormalNegative [facility] HospitalComment on above:Performed By: #### [id number] ####[facility] ([facility])[address] [place], [place] [address]UCADTGXFV ESTERASE PRESENCE IN URINE BY TEST STRIPNegativeNormalNegativeUnBarberton Citizens HospitalComment on above:Performed By: #### [id number] ####[facility] ([facility])[address] [place], [place] [address]WCAJKYL PRESENCE IN URINE NegativeNormalNegativeUnBarberton Citizens HospitalComment on above: Performed By: #### [id number] ####[facility] ([facility])[address] [place], [place] [address]bK (U)5.0 [pH]Normal5.0-8.0UnBarberton Citizens HospitalComment on above:Performed By: #### [id number] ####[facility] ([facility])[address] [place], [place] [address]Ysujuek (U) [Mass/Vol]30 mg/dLAbnormal NegativeUnBarberton Citizens HospitalComment on above:Performed By: #### [id number] ####[facility] ([facility])[address] [place] [address]Rfgssgns gravity (U) [Rel density]1.184Akn1.010-1.030UnBarberton Citizens Hospital Comment on above:Performed By: #### [id number] ####[facility] ([facility])[address] [place] [address]AHABJVQCKPBQ (MG/DL) IN URINENormalNormalNormal [facility] HospitalComment on above:Performed By: #### [id number] ####[facility] ([facility])[address] [place], [place] [address]CQBAAVFMUM MICROSCOPICon 51-92-3811CDICX (#/LPF) IN URINE SEDIMENTOccasionalNormalNone Seen, Occasional, FewUnBarberton Citizens HospitalComment on above: Performed By: #### [id number] ####[facility] ([facility])[address] [place], [place] [address]TOW (#/HPF) IN URINE SEDIMENT3-5AbnormalNone Seen, 0-2 [facility] HospitalComment on above:Performed By: #### [id number] ####[facility] ([facility])[address] [place], [place] [address]VYJDFCAA EPITHELIAL CELLS (#/LPF) IN URINE SEDIMENTFewNormalNone Seen, Occasional, Few [facility] HospitalComment on above:Performed By: #### [id number] ####[facility] ([facility])[address] [place], [place] [address]ILM (LEUKOCYTE) (#/HPF) IN URINE SEDIMENT0-2NormalNone Seen, 0-2UnBarberton Citizens HospitalComment on above:Performed By: #### [id number] ####[facility] ([facility])[address] [place] [address]co 79-69-812[address]Vsp patient is Moderately Stable - Low risk of patient condition declining or worsening The patient's goals for the shift include comfort, rest The clinical goals for the shift include VSSNormalUniversity of [facility] Jrwlpi84Awi patient is Moderately Stable - Low risk [...] and behaviors that affect risk of falls Davin fall precautions as indicated by assessment Educate [...] difficulty Respiratory therapy support as indicatedNormalUniversity of [facility]30The patient is Moderately Stable - Low risk of patient condition declining or worsening The patient's goals for the shift include comfort and rest The clinical goals for the shift include stable VSNormalUniversity of Christus Mother Frances Hospital – TylerANESon 99-68-1188FPCW Attestation signed by Rickey Jackson MD at 05/02/2025 11:12 AM Rickey Jackson MD, MPH, [facility], [facility], [facility] Interventional Cardiology Pager Email: [email or web address] Patient: Claudia Estrella Procedure Information Date/Time: 05/02/25929 Procedure: Right heart cath Location: [facility] [employer]PER[employer] [address] / [facility] (Cath) Providers: Rickey Jackson [...] products. Plan discussed with attending. Additional Equipment RequestsNormalUniversOhioHealth Southeastern Medical CenterB-TYPE NATRIURETIC PEPTIDEon 43-54-6172Ctfkllavwwe peptide B (Bld) [Mass/Vol]1236 pg/mL High0-100UnBarberton Citizens HospitalComment on above:Performed By: #### [id number] ####[facility] ([facility])[address] [facility] [facility] [address]QURGB METABOLIC PANELon 31-99-8564Erqor gap [Moles/Vol]13 mmol/LNormal7-20UnBarberton Citizens HospitalComment on above:Performed By: #### [id number] #### [facility] ([facility]) [address] [place], [place] [address]Derbazl [Mass/Vol]8.6 mg/dLNormal8.6-10.3UnBarberton Citizens HospitalComment on above:Performed By: #### [id number] #### [facility] ([facility]) [address] [place], [place] [address]Ffmmsvee [Moles/Vol]108 mmol/KJxkr25-294PkewmmsfqlBarberton Citizens HospitalComment on above:Performed By: #### [id number] #### [facility] ([facility]) [address] [place], [place] [address]UC1 [Moles/Vol]21 mmol/DIpzvub20-68TqdaodhmsrBarberton Citizens HospitalComment on above:Performed By: #### [id number] #### [facility] ([facility]) [address] [place] [address]Osnbbpopxo [Mass/Vol]2.77 mg/dLHigh0.60-1.20UnBarberton Citizens HospitalComment on above:Performed By: #### [id number] #### [facility] ([facility]) [address] [place], [place] [address]LOXZKEGDFL FILTRATION RATE ML/MIN/1.73 SQ M.PGRQAENRX12.4 mL/min/1.73m*2Low>60.0UnBarberton Citizens HospitalComment on above:Result Comment: [facility]???s estimated glomerular filtration rate (eGFR) will [...] group of individuals.Performed By: #### [id number] #### [facility] ([facility]) [address] [place], [place] [address]Lcljffl [Mass/Vol]147 mg/oBVurc02-653CubrgolsxsBarberton Citizens HospitalComment on above:Performed By: #### [id number] #### [facility] ([facility]) [address] [place], [place] [address]Shhlozhwa [Moles/Vol]3.9 mmol/LNormal3.5-5.1UnBarberton Citizens HospitalComment on above:Performed By: #### [id number] #### [facility] ([facility]) [address] [place], [place] [address]Cuaqji [Moles/Vol]138 mmol/UWwahfc311-006LpuisjqafhBarberton Citizens HospitalComment on above:Performed By: #### [id number] #### [facility] ([facility]) [address] [place], [place] [address]Kapc nitrogen [Mass/Vol]60 mg/dLHigh7-25UnBarberton Citizens HospitalComment on above:Performed By: #### [id number] #### [facility] ([facility]) [address] [place], [place] [address]ICXG NITROGEN/CREATININE (MASS RATIO) IN SER/PLAS21.7Normal [facility] HospitalComment on above:Performed By: #### [id number] #### [facility] ([facility]) [address] [place], [place] [address]Oojqg gap [Moles/Vol]14 mmol/LNormal7-20UnBarberton Citizens HospitalComment on above:Performed By: #### [id number] #### [facility] ([facility]) [address] [place], [place] [address]Sneqtcz [Mass/Vol]8.5 mg/dLLow8.6-10.3UnBarberton Citizens HospitalComment on above:Performed By: #### [id number] #### [facility] ([facility]) [address] [place], [place] [address]Ppegkkjr [Moles/Vol]106 mmol/XVsldlr25-445OlmpugfhnwBarberton Citizens HospitalComment on above:Performed By: #### [id number] #### [facility] ([facility]) [address] [place], [place] [address]ZP3 [Moles/Vol]21 mmol/JCtddyg61-83AfrdywtgmvBarberton Citizens HospitalComment on above:Performed By: #### [id number] #### [facility] ([facility]) [address] [place], [place] [address]Btutsspipm [Mass/Vol]2.85 mg/dLHigh0.60-1.20UnBarberton Citizens HospitalComment on above:Performed By: #### [id number] #### [facility] ([facility]) [address] [place], [place] [address]QSCOIVGHIE FILTRATION RATE ML/MIN/1.73 SQ M.OEIAAZEDA05.8 mL/min/1.73m*2Low>60.0UnBarberton Citizens HospitalComment on above:Result Comment: [facility]???s estimated glomerular filtration rate (eGFR) will [...] affect anyone group of individuals.Performed By: #### [id number] #### [facility] ([facility]) [address] [place] [address]Rvewwob [Mass/Vol]146 mg/uYXzfg37-410CuficczojxBarberton Citizens HospitalComment on above:Performed By: #### [id number] #### [facility] ([facility]) [address] [place] [address]Iictupjde [Moles/Vol]3.9 mmol/LNormal3.5-5.1UnBarberton Citizens HospitalComment on above:Performed By: #### [id number] #### [facility] ([facility]) [address] [place] [address]Jxgnxu [Moles/Vol]137 mmol/WDszhve835-643ZqtmhccvhyBarberton Citizens HospitalComment on above:Performed By: #### [id number] #### [facility] ([facility]) [address] [place] [address]Odkw nitrogen [Mass/Vol]58 mg/dLHigh7-25UnBarberton Citizens HospitalComment on above:Performed By: #### [id number] #### [facility] ([facility]) [address] [place] [address]WQCC NITROGEN/CREATININE (MASS RATIO) IN SER/PLAS20.4Normal [facility] HospitalComment on above:Performed By: #### [id number] #### [facility] ([facility]) [address] [place] [address]IKLdl 07-83-2604Ecitbtbkuvu distribution width (RBC) [Ratio]15.3 %High11.5-15.0UnBarberton Citizens HospitalComment on above:Performed By: #### [id number] #### [facility] ([facility]) [address] [place] [address]DOJOLHQUEJN MEAN CORPUSCULAR HEMOGLOBIN CONCENTRATION (G/DL) BY SSCVWIJXK71.5 g/cAEwvxcb12.0-35.0UnBarberton Citizens HospitalComment on above:Performed By: #### [id number] #### [facility] ([facility]) [address] [place] [address]Ljurbpwqvx (Bld) [Volume fraction]26.9 %Low36.0-45.0UnBarberton Citizens HospitalComment on above:Performed By: #### [id number] #### [facility] ([facility]) [address] [place] [address]Pvbwilzsqi (Bld) [Mass/Vol]9.0 g/dLLow12.0-15.0UnBarberton Citizens HospitalComment on above:Performed By: #### [id number] #### [facility] ([facility]) [address] [place] [address]DRS (RBC) [Entitic mass]29.6 rnMefttm80.0-33.0UnBarberton Citizens HospitalComment on above:Performed By: #### [id number] #### [facility] ([facility]) [address] [place] [address]CSY (RBC) [Entitic vol]88.5 pTFqjlup77.0-98.0UnBarberton Citizens HospitalComment on above:Performed By: #### [id number] #### [facility] ([facility]) [address] [place] [address]OTCKNTVRG (10*3/UL) IN BLOOD AUTOMATED AFAFR982 10*3/uLNormal 150-400UnBarberton Citizens HospitalComment on above:Performed By: #### [id number] #### [facility] ([facility]) [address] [place] [address]UHO (Bld) [#/Vol]3.04 10*6/uLLow3.80-5.00UnBarberton Citizens HospitalComment on above:Performed By: #### [id number] #### [facility] ([facility]) [address] [place] [address]WBS (Bld) [#/Vol]10.61 10*3/uLHigh4.00-10.60UnBarberton Citizens HospitalComment on above:Performed By: #### [id number] #### [facility] ([facility]) [address] [place] [address]Vcmhuqbweqh distribution width (RBC) [Ratio]15.3 %High11.5-15.0 [facility] HospitalComment on above:Performed By: #### [id number] #### [facility] ([facility]) [address] [place] [address]CDWCMBMERSW MEAN CORPUSCULAR HEMOGLOBIN CONCENTRATION (G/DL) BY EDQRYJJWV93.6 g/kDUmcvwd41.0-35.0UnBarberton Citizens HospitalComment on above:Performed By: #### [id number] #### [facility] ([facility]) [address] [place] [address]Jmnkprnqnw (Bld) [Volume fraction]26.1 %Low36.0-45.0UnBarberton Citizens HospitalComment on above:Performed By: #### [id number] #### [facility] ([facility]) [address] [place] [address]Vggybxzfix (Bld) [Mass/Vol]8.5 g/dLLow12.0-15.0UnBarberton Citizens HospitalComment on above:Performed By: #### [id number] #### [facility] ([facility]) [address] [place] [address]BEL (RBC) [Entitic mass]29.0 sePgwvui05.0-33.0UnBarberton Citizens HospitalComment on above:Performed By: #### [id number] #### [facility] ([facility]) [address] [place], [place] [address]OYF (RBC) [Entitic vol]89.1 kOVyikhm82.0-98.0UnBarberton Citizens HospitalComment on above:Performed By: #### [id number] #### [facility] ([facility]) [address] [place], [place] [address]WCENKZHGC (10*3/UL) IN BLOOD AUTOMATED KEWXH908 10*3/uLNormal 150-400UnBarberton Citizens HospitalComment on above:Performed By: #### [id number] #### [facility] ([facility]) [address] [place], [place] [address]JMJ (Bld) [#/Vol]2.93 10*6/uLLow3.80-5.00UnBarberton Citizens HospitalComment on above:Performed By: #### [id number] #### [facility] ([facility]) [address] [place], [place] [address]ZXX (Bld) [#/Vol]10.31 10*3/uLNormal4.00-10.60UnBarberton Citizens HospitalComment on above:Performed By: #### [id number] #### [facility] ([facility]) [address] [place], [place] [address]IAYAGNSsq 94-15-9063HANYQTBHrlrr Nutrition Assessment: Name: Claudia Estrella Date: 1950 Date of Visit: 05/02/25 Admission Dx: Acute on chronic heart failure with preserved ejection fraction (HFpEF) (CMS/[facility]) [I50.33] Reason for assessment: high risk [...] Independently feeds self Good access to food DEEP SEA DIVER Skin Integrity: Intact Edema: BLE +1 Other [...] 05/02/25 1218 Special Kitchen Request Once Comments: Venezuelan toast, chocolate milk and grapes 05/02/25 1237 [...] ideal body weight (40.9 kg) Calorie needs: 2043-6603 kcals/day based on 25-30 kcal/kg Protein needs: [...] of Nutrition and Dietetics (AND) and the [place] Society of Enteral and Parenteral Nutrition (ASPEN). [...] to diet recommendations No (more content not included)...[facility] CONSULT Attestation with edits by Karthik Fish [...] CKD 4, and diabetes who presents from [facility] cardiology clinic due to worsening dyspnea on [...] medical history of CHF (congestive heart failure) (CMS/[facility]), Chronic kidney disease, Coronary artery disease, [...] times daily ergocalciferol (Vitamin D-2) 1.25 MG (00808 UT) capsule 1 capsule, Weekly ferrous sulfate [...] Prescriptions Prior to Admission[1] (more content not included)...NormalUnBarberton Citizens HospitalFERRITIN on 99-93-9824DEFVNLXU (NG/ML) IN SER/NLUJ100.0 ng/oTQcpewj03.0-307.0UnBarberton Citizens HospitalComment on above:Performed By: #### [id number] ####[facility] ([facility]AKER)[address] [place], [place] [address]TCEBJDok 32-37-2953DCIWWW (NG/ML) IN SER/PLAS18.26 ng/mLNormal6.6-1000[facility] Comment on above:Performed By: #### [id number] #### [facility] ([facility]) [address] [place] [address]MFwu 41-99-2465FM Attestation signed by Rickey Jackson MD at 05/02/2025 11:12 AM Rickey Jackson MD, MPH, [facility], 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 H&P reviewed. The patient was examined and there are no changes to the H&P. NormalUnBarberton Citizens HospitalIRON AND TIBCon 99-14-6549IWMF (UG/DL) IN SER/PLAS53 ug/uOEaijzs19-852CxgsfbsgqhBarberton Citizens HospitalComment on above:Performed By: #### [id number] ####[facility] ([employer])[address] [place] [address]ARFH BINDING CAPACITY (UG/DL) IN SER/WJAQ537 ug/tSJcb560-947 [facility] HospitalComment on above:Performed By: #### [id number] ####[facility] ([employer]Page)[address] [place] [address]ZCQF BINDING CAPACITY.UNSATURATED (UG/DL) IN SER/HMMX642.0 ug/dAIgtfhd278.0-355.0UnBarberton Citizens HospitalComment on above:Performed By: #### [id number] ####[facility] ([facility])[address] [place] [address]CJFV SATURATION (%) IN SER/PLAS23 %Hcokvt80-76LqptwwrznyBarberton Citizens HospitalComment on above: Performed By: #### [id number] ####[facility] ([facility])[address] [place] [address]ECSESXSRLhf 42-81-2055Lirxszfnl [Mass/Vol]2.1 mg/dLNormal 1.9-2.7UnBarberton Citizens HospitalComment on above:Performed By: #### [id number] #### [facility] ([facility]) [address] [place] [address]ASXY GLUCOSE METER UNSOLICITED RESULTSon 02-34-7507Trzbmlf [Mass/Vol]212 mg/hUWoaf24-492EtjkooksgbBarberton Citizens HospitalComment on above:Order Comment: Waived Testing in the ED is performed under the ED CLIA certificate #[id number].Result Comment: zunhfei2Qwhzeczig By: #### [id number] #### [facility] ([facility]) [address] [place] [address]Zsjyngc [Mass/Vol]199 mg/lHMeco65-786MnznnxnxbpBarberton Citizens HospitalComment on above:Order Comment: Waived Testing in the ED is performed under the ED CLIA certificate #[id number].Result Comment: asavill Performed By: #### [id number] #### [facility] ([facility]) [address] [place], [place] [address]Kgnwpzc [Mass/Vol]158 mg/hPIfay40-643XspwdfmbzoBarberton Citizens HospitalComment on above:Order Comment: Waived Testing in the ED is performed under the ED CLIA certificate #[id number].Result Comment: [email or web address] Performed By: #### [id number] ####[facility] ([facility])[address] [place] [address]WCUYBDKOAPLA PANELon 13-14-8010MQLKYXCWZG (PG) IN QAOASCAZVFKVV52.9 hcHrqskx64.0-36.0UnBarberton Citizens HospitalComment on above:Performed By: #### [id number] ####[facility] ([facility])[address] [place] [address]WKOEZEJZ RETICULOCYTE FRACTION (%)22.4 %High2-16UnBarberton Citizens HospitalComment on above:Performed By: #### [id number] ####[facility] ([facility])[address] [place] [address]HAOSNUVSKSXHA (10*6/UL) IN BLOOD0.1054 10*6/uLHigh0.0250-0.1000UnBarberton Citizens Hospital Comment on above:Performed By: #### [id number] ####[facility] ([facility])[address] [place] [address]Gjajzbltrzxci/100 RBC (Bld)3.50 %High0.50-1.80 [facility] HospitalComment on above:Performed By: #### [id number] ####[facility] ([facility])[address] [place] [address]JPZ3 REFLEX TO FT4on 13-74-3824ANNFGSTZRGS (MIU/L) IN SER/PLAS BY DETECTION LIMIT <= 0.05 MIU/L 4.54 mIU/LNormal0.34-5.60UnBarberton Citizens HospitalComment on above: Performed By: #### [id number] #### [facility] ([facility]) [address] [place] [address]OHAIUAB B12on 71-38-0340Kepmqntkq (Vitamin B12) [Mass/Vol]424 pg/mWBylccp843-759RweodefqpmBarberton Citizens HospitalComment on above:Result Comment: REFERENCE RANGES: 180-914 pg/mL Normal 145-179 pg/mL Indeterminate <145 pg/mL DeficientPerformed By: #### [id number] #### [facility] (BEAKER) [address] [place], [place] [address]Nofavx Visiton 82-43-4308Fqyaww-up [id number] SameerAmrik mastness Conklin 1950 F Date Provider Department Center 05/01/2025 166-[facility]ON [facility] Family History Problem Relation Age of Onset Heart attack Mother Heart failure Mother Heart attack Father Family Status - Relation Status Age at Mother Father Level of Service:[address] [place] OFFICE[facility]PAT[facility] Reason for Visit and Comments: Follow-up [857845] - Patient is here today for a 2 week follow up. Patient states she is not doing well, Patient is very SOB. Patient has been unable to eat, and vomiting up her medication. Patient states when she exhales she hears a whistling. Coronary Artery Disease [187] Congestive Heart Failure [127] Hypertension [022358] Heart Murmur [124] Hyperlipidemia [182] Shortness of Breath [931787] - SOB/MCALLISTER increased over the last 3 to 4 days. Patient pulse ox at home has been 84 with movement and 94 with sitting. Patient is unable to lay flat to sleep using 4 pillows. Fatigue [46] - Greatly increased Edema [5381350972] - Bilateral leg and abdominal swelling Chest Pain [844172] - Patient has been using dee for chest and back pain. 3 different times. Patient states it relieved chest and back pain Cough [28] - IncreasedNormalUniversity of [facility]36on Bibb back from Dr. Jenkins's office and he is ok with change in Bumex dose per Dalia To. 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 If she is thinking she may have fluid retention would like nephro's input on bumex dosing. She could benefit from a sleep study. Can also consider a 6 minute walk test, but if oxygen is needed this will need to come from PCP or pulmonary. Thank EugeniaKing's Daughters Medical Center OhioErythrocyte distribution width Auto (RBC) [Ratio]Ordered By: Geneva Jenkins on 93-91-2605Blwlhypurfa distribution width (RBC) [Ratio]14.6 %11.0-15.0Pike Community HospitalGlomerular filtration rate (GFR) estimation in non- AmericanOrdered By: Geneva Jenkins on 06-88-9204GPL/1.73 sq M.predicted among non-blacks MDRD (S/P/Bld) [Vol rate/Area]18 mL/min/{1.73_m2}Low>=60 mL/min/1.73m 2FOhioHealth Grant Medical CenterHematocrit Auto (Bld) [Volume fraction]Ordered By: Geneva Jenkins on 91-02-4499Mtldfzdhda (Bld) [Volume fraction]31.7 %Low36.0-48.0[facility] HospitalHemoglobin [Mass/volume] in BloodOrdered By: Geneva Jenkins on 24-47-7037Rrqjvyjoll (Bld) [Mass/Vol]10.4 g/dLLow12.0-16.0[facility] HospitalIron binding capacity [Mass/volume] in Serum or PlasmaOrdered By: Geneva Jenkins on 18-82-4420Fagb binding capacity [Mass/Vol]247.0 ug/dLLow 250.0-450.0P[facility] Community HospitalIron saturation [Mass Fraction] in Serum or PlasmaOrdered By: Geneva Jenkins on 85-07-0137Eykf saturation [Mass fraction]21.9 %[facility] HospitalLaboratory - Chemistry and Chemistry - challengeOrdered By: Geneva Jenkins on 06-12-9560Tirmeiu [Mass/Vol]3.7 g/dL3.4-5.0[facility] HospitalCalcium [Mass/Vol]9.1 mg/dL8.5-10.1 [facility] HospitalChloride [Moles/Vol]102 mmol/J91-621DcojwuqjvPike Community HospitalCO2 [Moles/Vol]23.4 mmol/L21.0-32.0[facility] HospitalCreatinine [Mass/Vol]2.63 mg/dLHigh0.55-1.02[facility] HospitalFerritin [Mass/Vol]220.0 ng/mL8.0-252.0[facility] HospitalGFR/1.73 sq M.predicted MDRD (S/P/Bld) [Vol rate/Area]22 mL/min/{1.73_m2} Low>=60 mL/min/1.73m 2FOhioHealth Grant Medical CenterGlucose [Mass/Vol]182 mg/jOVkqd79-423LqhcjkjluPike Community HospitalIron [Mass/Vol]54.0 ug/dL 50.0-170.0[facility] HospitalMagnesium [Mass/Vol]2.4 mg/dL1.8-2.4 [facility] HospitalPotassium [Moles/Vol]3.6 mmol/L3.5-5.1FRegency Hospital Cleveland Westodium [Moles/Vol]134 mmol/UKxl952-472PzqlcktiuPike Community HospitalUrate [Mass/Vol]5.0 mg/dL2.6-6.0[facility] Urea nitrogen [Mass/Vol]56.0 mg/dLHigh7.0-18.0[facility] Urea nitrogen/Creatinine [Mass ratio]21.3 mg/mgPike Community Hospital Bilirubin Ql (U)NegativeNEGATIVEPike Community HospitalGlucose (U) [Mass/Vol]NegativeNEGATIVEPike Community HospitalKetones Ql (U) NegativeNEGATIVEPike Community HospitalpH (U)6.0 [pH]5.0-9.0Wilson Healthpecific gravity (U) [Rel density]1.0201.005-1.025 [facility] HospitalUrobilinogen Qn (U)0.2 {Kelly'U}/dL0.2-1.0 [facility] HospitalLaboratory - Specimen informationOrdered By: Geneva Jenkins on 17-19-1667Ozvgrpjawd (U)CLEARCLEARFOhioHealth Grant Medical CenterColor (U)LT. YELLOWYELLOWPike Community HospitalLaboratory - UrinalysisOrdered By: Geneva Jenkins on 53-02-0538Qqxaynkzu esterase Test strip Ql (U)SMALLAbnormalNEGATIVEPike Community HospitalMucus Ql (Urine sed) NONE SEENNONE SEENPike Community HospitalNitrite Ql (U)Negative NEGATIVEPike Community HospitalProtein (U) [Mass/Vol]317.2 mg/dLHigh <=11.9[facility] HospitalProtein Ql (U)>=300 mg/dLAbnormal NEG/TRACEPike Community HospitalLeukocytes [#/volume] corrected for nucleated erythrocytes in Blood by Automated counOrdered By: Geneva Jenkins on 66-56-5693VDO corrected for nucl RBC Auto (Bld) [#/Vol]11.0 10 3/uL4.0-11.0 [facility] Hospital [facility] ColumbusH Auto (RBC) [Entitic mass]Ordered By: Geneva Jenkins on 42-23-3104CSP (RBC) [Entitic mass]29.5 pg26.7-34.0[facility] Hospital [facility] ColumbusHC Auto (RBC) [Mass/Vol]Ordered By: Geneva Jenkins on 04-18-2025 MCHC (RBC) [Mass/Vol]32.8 g/dL29.9-35.2FOhioHealth Grant Medical CenterMCV Auto (RBC) [Entitic vol]Ordered By: Geneva Jenkins on 24-95-2184TRM (RBC) [Entitic vol] 89.8 fL81.0-99.0[facility] HospitalNo Panel InformationOrdered By: Geneva Jenkins on 324621-Kcoeyeo Vitamin D Total58.2 ng/mLPike Community HospitalComment on above:<20 ng/mL Vit D mxsvcutsk65-<30 ng/mL Vit D xrridaglcfzc78-212 ng/mL Vit D sufficient>100 ng/mL Potential Toxicity Parathyroid Hormone (Intact)62 pg/bT71-90PrvvrgvlePike Community Hospital Comment on above:Performed at: - [facility] [address] [id number] Director: Curry Rizzo PhD, Phone: [phone] Level 4.6 mg/dL2.6-4.7FOhioHealth Grant Medical CenterUrine BacteriaMODERATE #/HPF AbnormalNONE [facility] HospitalUrine Occult BloodSMALL AbnormalNEGATIVEPike Community HospitalUrine Other CastsNONE SEEN #/LPFNONE [facility] HospitalUrine Other CrystalsNone Seen #/HPFNone [facility] HospitalUrine Random Euojrcgtoc26.88 mg/dL20.00-300.00P[facility] HospitalUrine RBC5-10 #/HPFAbnormal0-2 [facility] HospitalUrine Squamous Epithelial CellsFEW #/LPF AbnormalNONE/RAREPike Community HospitalUrine WBC5-10 #/HPFAbnormal NONE [facility]aritan HospitalPlatelet mean volume Auto (Bld) [Entitic vol]Ordered By: Geneva Jenkins on 25-99-6158Ttztefiu mean volume (Bld) [Entitic vol]11.1 fL9.5-13.5FOhioHealth Grant Medical CenterPlatelets Auto (Bld) [#/Vol]Ordered By: Geneva Murillor on 52-49-9217Tywgewdnp (Bld) [#/Vol]191 10 3/dJ420-355SganwpcozPike Community HospitalRBC Auto (Bld) [#/Vol]Ordered By: Geneva Dicksondir on 77-04-4163WIA (Bld) [#/Vol]3.53 10 6/uLLow4.20-5.40Wilson Healtherum or plasma anion gap determinationOrdered By: Geneva Jenkins on 05-32-5886Xxsct gap [Moles/Vol]12.2 mmol/LFOhioHealth Grant Medical CenterUrine protein/creatinine ratioOrdered By: Geneva Jenkins on 04-18-2025 Protein/Creatinine (U) [Ratio]4.07[facility]37on *Will have her go back up to 75mg BID for HTN management. *Increase bumex to 2mg BID. *Have weekly labs to follow-up on kidney functionNormalUniKettering Health TroyOffice Visiton 91-87-5007Wqacek-up [id number] Claudia Estrella 1950 F Date Provider Department Center 04/15/2025 166-DEACON TO [facility]Y [facility] Family History Problem Relation Age of Onset Heart attack Mother Heart failure Mother Heart attack Father Family Status - Relation Status Age at Mother Father Level of Service:[address]298 [place] OFFICE/OUTPATIENT ESTABLISHED MOD MDM 30 MIN Reason for Visit and Comments: Follow-up [426860] - Patient is here today for a follow up [facility] admission. Patient states she feels better but not great. Patient states the Hospitalist changed her medications and cut her bumex in half, changed her potassium to 1 a day. Coronary Artery Disease [187] Hypertension [901424] Hyperlipidemia [182] Congestive Heart Failure [127] Heart Murmur [124] stage 4 kidney disease [Other] Shortness of Breath [930843] - MCALLISTER.NormalUnBarberton Citizens Hospital Orders Onlyon 34-96-3175Tpgthx [id number] Claudia Estrella 1950 F Date Provider Department Center 04/10/2025 [id number], HISTORICAL ADY [place] Family History Problem Relation Age of Onset Heart attack Mother Heart failure Mother Heart attack Father Family Status - Relation Status Age at Mother Father DeceasedNormalUniversOhioHealth Southeastern Medical CenterHPon 00-31-1449PWBA Cardiology - [facility] Subjective Claudia Estrella is a 74 [...] warm and dry. Neurologi (more content not included)...NormalUnBarberton Citizens HospitalOffice Visiton 27-96-2738Evsoyl-up [id number] Claudia Estrella 1950 F Date Provider Department Center 04/07/2025 KARTHIK MACKAY ADY [place] Family History Problem Relation Age of Onset Heart attack Mother Heart failure Mother Heart attack Father Family Status - Relation Status Age at Mother Father Level of Service:[address]74 [place] OFFICE/OUTPATIENT ESTABLISHED MOD MDM [facility] LimaErythrocyte distribution width Auto (RBC) [Ratio]Ordered By: Geneva Jenkins on 87-51-1637Mhzshpurpvj distribution width (RBC) [Ratio]13.7 %11.0-15.0[facility] HospitalEstimated glomerular filtration rate (GFR) non- AmericanOrdered By: Geneva Jenkins on 01-20-2025 GFR/1.73 sq M.predicted among non-blacks MDRD (S/P/Bld) [Vol rate/Area]20 mL/min/{1.73_m2}Low>=60 mL/min/1.73m 2FOhioHealth Grant Medical Center Hematocrit Auto (Bld) [Volume fraction]Ordered By: Geneva Jenkins on 01-20-2025 Hematocrit (Bld) [Volume fraction]32.6 %Low36.0-48.0[facility] HospitalHemoglobin [Mass/volume] in BloodOrdered By: Geneva Jenkins on 01-20-2025 Hemoglobin (Bld) [Mass/Vol]11.1 g/dLLow12.0-16.0[facility] HospitalIron binding capacity [Mass/volume] in Serum or PlasmaOrdered By: Geneva Jenkins on 60-36-0103Fiqt binding capacity [Mass/Vol]279.0 ug/dL250.0-450.0 [facility] HospitalIron saturation [Mass Fraction] in Serum or PlasmaOrdered By: Geneva Jenkins on 23-21-1832Clqq saturation [Mass fraction]17.9 % [facility] HospitalLaboratory - Chemistry and Chemistry - challengeOrdered By: Geneva Jenkins on 83-73-5422Zrtiduf [Mass/Vol]3.2 g/dLLow 3.4-5.0[facility] HospitalCalcium [Mass/Vol]9.2 mg/dL8.5-10.1 [facility] HospitalChloride [Moles/Vol]105 mmol/V30-097BwtjqgrryPike Community HospitalCO2 [Moles/Vol]25.4 mmol/L21.0-32.0[facility] HospitalCreatinine [Mass/Vol]2.33 mg/dLHigh0.55-1.02[facility] HospitalGFR/1.73 sq M.predicted MDRD (S/P/Bld) [Vol rate/Area]25 mL/min/{1.73_m2}Low>=60 mL/min/1.73m 2FOhioHealth Grant Medical CenterGlucose [Mass/Vol]158 mg/vCXlsa54-814YqdrjqlmaPike Community HospitalIron [Mass/Vol] 50.0 ug/dL50.0-170.0[facility] HospitalMagnesium [Mass/Vol]2.1 mg/dL1.8-2.4FOhioHealth [facility] CenterPotassium [Moles/Vol]4.2 mmol/L 3.5-5.1FRegency Hospital Cleveland Westodium [Moles/Vol]142 mmol/X517-412 [facility] HospitalUrate [Mass/Vol]5.4 mg/dL2.6-6.0[facility] HospitalUrea nitrogen [Mass/Vol]50.0 mg/dLHigh7.0-18.0[facility] HospitalUrea nitrogen/Creatinine [Mass ratio]21.5 mg/mgPike Community HospitalBilirubin Ql (U)NegativeNEGAdena Regional Medical CenterGlucose (U) [Mass/Vol]NegativeNEGAdena Regional Medical CenterKetones Ql (U)NegativeNEGAdena Regional Medical CenterpH (U)6.0 [pH]5.0-9.0Wilson Healthpecific gravity (U) [Rel density] 1.0201.005-1.025[facility] HospitalUrobilinogen Qn (U)0.2 {Kelly'U}/dL0.2-1.0[facility] HospitalLaboratory - Specimen informationOrdered By: Geneva Jenkins on 47-12-8586Ezmfsaksac (U)CLEARCLEAR [facility] HospitalColor (U)LT. YELLOWYELLOWPike Community HospitalLaboratory - UrinalysisOrdered By: Geneva Jenkins on 01-20-2025 Leukocyte esterase Test strip Ql (U)TRACEAbnormalNEGAdena Regional Medical CenterMucus Ql (Urine sed)TRACEAbnormalNONE SEENPike Community HospitalNitrite Ql (U)NegativeNEGAdena Regional Medical Center Protein (U) [Mass/Vol]167.6 mg/dLHigh<=11.9[facility] Protein Ql (U)>=300 mg/dLAbnormalNEG/TRACEPike Community Hospital Leukocytes [#/volume] corrected for nucleated erythrocytes in Blood by Automated counOrdered By: Geneva Jenkins on 97-68-9604NLE corrected for nucl RBC Auto (Bld) [#/Vol]9.0 10 3/uL4.0-11.0[facility] Auto (RBC) [Entitic mass]Ordered By: Geneva Jenkins on 98-06-5007VME (RBC) [Entitic mass]29.8 pg26.7-34.0[facility] Hospital [facility] ColumbusHC Auto (RBC) [Mass/Vol]Ordered By: Geneva Jenkins on 95-11-2080QQKR (RBC) [Mass/Vol]34.0 g/dL29.9-35.2FCleveland Clinic Akron GeneralV Auto (RBC) [Entitic vol]Ordered By: Geneva Jenkins on 72-26-5600NMG (RBC) [Entitic vol]87.4 fL81.0-99.0[facility] HospitalNo Panel InformationOrdered By: Geneva Jenkins on 303164-Mqdvycd Vitamin D Total46.0 ng/mLPike Community HospitalComment on above:<20 ng/mL Vit D ddbwahgoa90-<30 ng/mL Vit D qvwwrfgzavsa11-164 ng/mL Vit D sufficient>100 ng/mL Potential ToxicityMiscellaneous TestCOMMENT.[facility] HospitalComment on above:Test Ordered: [id number] FerritinFerritin 153 [H ] ng/mL Reference Range: 15-150Performed at: [facility] [id number] Director: Curry Rizzo PhD, Phone: [phone] Hormone (Intact)58 pg/zK22-70NyurjpfxwPike Community HospitalComment on above:Performed at: - [address] [id number] Director: Curry Rizzo PhD, Phone: [phone] Phosphorus Level4.6 mg/dL2.6-4.7FOhioHealth Grant Medical CenterUrine Bacteria TRACE #/HPFAbnormalNONE [facility] HospitalUrine Occult Blood TRACE-INEGATIVEPike Community HospitalUrine Other CastsNONE SEEN #/LPF NONE [facility] HospitalUrine Other CrystalsNone Seen #/HPF None [facility] HospitalUrine Random Ivnxjbzaqh09.76 mg/dL 20.00-300.00[facility] HospitalUrine RBC2-5 #/HPFAbnormal0-2 [facility] HospitalUrine Squamous Epithelial CellsFEW #/LPF AbnormalNONE/RAREPike Community HospitalUrine WBC0-2 #/HPFAbnormalNONE [facility]itan HospitalPlatelet mean volume Auto (Bld) [Entitic vol]Ordered By: Geneva Jenkins on 44-39-0521Vgjcjlxh mean volume (Bld) [Entitic vol]10.6 fL9.5-13.5FOhioHealth Grant Medical CenterPlatelets Auto (Bld) [#/Vol] Ordered By: Geneva Jenkins on 74-45-5918Bpsfxrray (Bld) [#/Vol]177 10 3/cA129-742 [facility] HospitalRBC Auto (Bld) [#/Vol]Ordered By: Geneva Mary Grace on 99-14-7689DVD (Bld) [#/Vol]3.73 10 6/uLLow4.20-5.40Wilson Healtherum or plasma anion gap determinationOrdered By: Geneva Jenkins on 68-11-1990Tchjr gap [Moles/Vol]15.8 mmol/LFOhioHealth Grant Medical CenterUrine protein/creatinine ratioOrdered By: Geneva Jenkins on 22-85-7882Jggzcab/Creatinine (U) [Ratio]5.45[facility] HospitalPerimetry studyon 11-26-2024 [facility] HealthcareRadiology Study observation (narrative)[facility] Xzpjmylyzb01bj 87-33-119283Axvkmhbtw echo result from 10/04/2024: MD Michelle Tan MA Please tell her the echo showed normal cardiac function with evidence of extra fluid in the body. Depending on symptoms of shortness of breath, she can take extra 0.5 tablet of bumex on as needed basis. Follow up as planned. Patient informed. She verbalized understanding.NormalMagruder Memorial HospitalOffice Visiton 58-20-4050Wspuvl-up [id number] Claudia Estrella 1950 F Date Provider Department Center 09/16/2024 KARTHIK MACKAY AD[facility] Family History Problem Relation Age of Onset Heart attack Mother Heart failure Mother Heart attack Father Family Status - Relation Status Age at Mother Father Level of Service:257[address] [place] OFFICE/OUTPATIENT ESTABLISHED MOD MDM 30 [facility]imaErythrocyte distribution width Auto (RBC) [Ratio]on 98-52-1607Ryefsaafmpk distribution width (RBC) [Ratio]Erythrocyte distribution width [Ratio] by Automated count11.0-15.0[facility] HospitalEstimated glomerular filtration rate (GFR) non- Americanon 41-56-3578GJS/1.73 sq M.predicted among non-blacks MDRD (S/P/Bld) [Vol rate/Area]Estimated glomerular filtration rate (GFR) non- AmericanLow>=60 mL/min/1.73m 2FOhioHealth Grant Medical CenterHematocrit Auto (Bld) [Volume fraction]on 69-99-6949Otnfnrlrhy (Bld) [Volume fraction]Hematocrit [Volume Fraction] of Blood by Automated mtoikIos20.0-48.0[facility] HospitalHemoglobin [Mass/volume] in Bloodon 60-98-6518Uahmbvwfhi (Bld) [Mass/Vol] Hemoglobin [Mass/volume] in OigsxNpr60.0-16.0[facility] Iron binding capacity [Mass/volume] in Serum or Plasmaon 18-08-3507Dlaz binding capacity [Mass/Vol]Iron binding capacity [Mass/volume] in Serum or PlasmaLow 250.0-450.0[facility] HospitalIron saturation [Mass Fraction] in Serum or Plasmaon 09-39-5468Gpus saturation [Mass fraction]Iron saturation [Mass Fraction] in Serum or PlasmaPike Community HospitalLaboratory - Chemistry and Chemistry - challengeon 89-63-6999Euzjmoc [Mass/Vol]3.4 g/dL 3.4-5.0[facility] HospitalCalcium [Mass/Vol]9.3 mg/dL8.5-10.1 [facility] HospitalChloride [Moles/Vol]100 mmol/W92-989UmfwxatydPike Community HospitalCO2 [Moles/Vol]28.1 mmol/L21.0-32.0[facility] HospitalCreatinine [Mass/Vol]2.44 mg/dLHigh0.55-1.02[facility] HospitalFerritin [Mass/Vol]145.0 ng/mL8.0-252.0[facility] HospitalGFR/1.73 sq M.predicted MDRD (S/P/Bld) [Vol rate/Area]24 mL/min/{1.73_m2} Low>=60 mL/min/1.73m 2FOhioHealth Grant Medical CenterGlucose [Mass/Vol]162 mg/bXMcsp77-445QywmkotgiPike Community HospitalIron [Mass/Vol]53.0 ug/dL 50.0-170.0[facility] HospitalMagnesium [Mass/Vol]2.0 mg/dL1.8-2.4 [facility] HospitalPotassium [Moles/Vol]3.2 mmol/LLow3.5-5.1 Wilson Healthodium [Moles/Vol]140 mmol/H273-125BlqduimxdPike Community HospitalUrate [Mass/Vol]6.3 mg/dLHigh2.6-6.0[facility] HospitalUrea nitrogen [Mass/Vol]46.0 mg/dLHigh7.0-18.0[facility] HospitalUrea nitrogen/Creatinine [Mass ratio]18.9 mg/mgPike Community HospitalLaboratory - Urinalysison 33-47-5918Yqacmjd (U) [Mass/Vol]197.4 mg/dLHigh<=11.9[facility] HospitalLeukocytes [#/volume] corrected for nucleated erythrocytes in Blood by Automated counon 44-69-4091MMG corrected for nucl RBC Auto (Bld) [#/Vol]Leukocytes [#/volume] corrected for nucleated erythrocytes in Blood by Automated coun4.0-11.0[facility] MCH Auto (RBC) [Entitic mass]on 78-16-6019PZY (RBC) [Entitic mass]MCH [Entitic mass] by Automated count26.7-34.0[facility] HospitalMCHC Auto (RBC) [Mass/Vol]on 93-94-8349LDVP (RBC) [Mass/Vol]MCHC [Mass/volume] by Automated count29.9-35.2FOhioHealth Grant Medical CenterMCV Auto (RBC) [Entitic vol]on 46-18-2750LRO (RBC) [Entitic vol]MCV [Entitic volume] by Automated count 81.0-99.0[facility] HospitalNo Panel Informationon - Hydroxy Vitamin D Total51.6 ng/mLPike Community HospitalComment on above:<20 ng/mL Vit D jmrzjmfwo82-<30 ng/mL Vit D -212 ng/mL Vit D sufficient>100 ng/mL Potential ToxicityParathyroid Hormone (Intact)78 pg/mL Xxkwrzqo00-69NdxnkgqzuPike Community HospitalComment on above:Performed at: [employer] [facility] [place] [id number] Director: Curry Rizzo PhD, Phone: [phone] Level5.4 mg/dLHigh2.6-4.7FOhioHealth Grant Medical CenterUrine Random Nwvgkcsdkd55.10 mg/dL20.00-300.00[facility] HospitalPlatelet mean volume Auto (Bld) [Entitic vol]on 83-03-1992Aolhzdgw mean volume (Bld) [Entitic vol]Platelet mean volume [Entitic volume] in Blood by Automated count9.5-13.5FOhioHealth [facility] Center Platelets Auto (Bld) [#/Vol]on 86-12-4671Xfihdxaiu (Bld) [#/Vol]Platelets [#/volume] in Blood by Automated hlpci376-566ZvtmvylhaPike Community Hospital RBC Auto (Bld) [#/Vol]on 02-17-7114DFD (Bld) [#/Vol]Erythrocytes [#/volume] in Blood by Automated countLow4.20-5.40Wilson Healtherum or plasma anion gap determinationon 21-47-6937Mmcyj gap [Moles/Vol]Serum or plasma anion gap determinationPike Community HospitalUrine protein/creatinine ratioon 85-29-1711Qnbundj/Creatinine (U) [Ratio]Urine protein/creatinine ratio [facility] HospitalOphthalmic OCT panelon 99-97-5579RKKKReynolds County General [facility] Eye Images reviewed and comparison made to baseline, Images reviewed. To assess optic nerve function and for use in future follow-up. Reliability: good and adequate. Left Eye Images reviewed and comparison made to baseline, Images reviewed. To assess optic nerve function and for use in future follow-up. Reliability: good and adequate. Notes Superior nerve fiber layer (NFL) thinning both eyes (OU). Stable.[facility] HealthcareRadiology Study observation (narrative)[facility] LouisOptical coherence tomography study reporton 63-23-8191HSKJFormerly [facility], later [facility] Radiology Study observation (narrative)[facility] St. LouisErythrocyte distribution width Auto (RBC) [Ratio]on 05-64-3190Enotovuvhil distribution width (RBC) [Ratio]Erythrocyte distribution width [Ratio] by Automated rpspmLguf24.0-15.0 [facility] HospitalEstimated glomerular filtration rate (GFR) non- Americanon 42-20-6280EEW/1.73 sq M.predicted among non-blacks MDRD (S/P/Bld) [Vol rate/Area]Estimated glomerular filtration rate (GFR) non- AmericanLow>=60 mL/min/1.73m 2FOhioHealth Grant Medical CenterHematocrit Auto (Bld) [Volume fraction]on 00-28-0631Uetbqatjao (Bld) [Volume fraction]Hematocrit [Volume Fraction] of Blood by Automated aegpwAge87.0-48.0[facility] HospitalHemoglobin [Mass/volume] in Bloodon 92-71-3280Uabxspqdgo (Bld) [Mass/Vol]Hemoglobin [Mass/volume] in NveslVnc42.0-16.0[facility] HospitalIron binding capacity [Mass/volume] in Serum or Plasmaon 78-22-1487Uvhh binding capacity [Mass/Vol]Iron binding capacity [Mass/volume] in Serum or Itxlyd392.0-450.0[facility] HospitalIron saturation [Mass Fraction] in Serum or Plasmaon 56-97-6653Kgbq saturation [Mass fraction] Iron saturation [Mass Fraction] in Serum or PlasmaPike Community HospitalLaboratory - Chemistry and Chemistry - challengeon 18-64-4948Mjzmqbp [Mass/Vol]3.3 g/dLLow3.4-5.0[facility] HospitalCalcium [Mass/Vol] 9.2 mg/dL8.5-10.1FOhioHealth Grant Medical CenterChloride [Moles/Vol]103 mmol/L 98-107[facility] HospitalCO2 [Moles/Vol]25.9 mmol/L21.0-32.0 [facility] HospitalCreatinine [Mass/Vol]2.24 mg/dLHigh0.55-1.02 [facility] HospitalFerritin [Mass/Vol]151.0 ng/mL8.0-252.0 [facility] HospitalGFR/1.73 sq M.predicted MDRD (S/P/Bld) [Vol rate/Area]26 mL/min/{1.73_m2}Low>=60 mL/min/1.73m 2FOhioHealth Grant Medical CenterGlucose [Mass/Vol]169 mg/pTAmwu13-624JzdarbgdoPike Community HospitalIron [Mass/Vol]41.0 ug/dLLow50.0-170.0[facility] HospitalMagnesium [Mass/Vol]2.0 mg/dL1.8-2.4FOhioHealth Grant Medical CenterPotassium [Moles/Vol] 3.6 mmol/L3.5-5.1FRegency Hospital Cleveland Westodium [Moles/Vol]141 mmol/L 136-145[facility] HospitalUrate [Mass/Vol]5.1 mg/dL2.6-6.0 [facility] HospitalUrea nitrogen [Mass/Vol]44.0 mg/dLHigh7.0-18.0 [facility] HospitalUrea nitrogen/Creatinine [Mass ratio]19.6 mg/mg [facility] HospitalBilirubin Ql (U)NegativeNEGATIVEPike Community HospitalGlucose (U) [Mass/Vol]NegativeNEGATIVEPike Community HospitalKetones Ql (U)NegativeNEGATIVEPike Community HospitalpH (U)5.5 [pH]5.0-9.0Wilson Healthpecific gravity (U) [Rel density]1.0201.005-1.025[facility] HospitalUrobilinogen Qn (U)0.2 {Kelly'U}/dL0.2-1.0[facility] HospitalLaboratory - Specimen informationon 18-82-2524Jekpzdsmdv (U)CLEARCLEARFOhioHealth Grant Medical CenterColor (U)LT. YELLOWYELLOWPike Community HospitalLaboratory - Urinalysison 58-33-6407Eefoueq casts LM Ql (Urine sed)RAREPike Community HospitalLeukocyte esterase Test strip Ql (U)MODERATEAbnormalNEGATIVE [facility] HospitalMucus Ql (Urine sed)TRACEAbnormalNONE SEEN [facility] HospitalNitrite Ql (U)NegativeNEGATIVEPike Community HospitalProtein (U) [Mass/Vol]122.0 mg/dLHigh<=11.9[facility] HospitalProtein Ql (U)100 mg/dLAbnormalNEG/TRACEPike Community HospitalLeukocytes [#/volume] corrected for nucleated erythrocytes in Blood by Automated counon 25-84-6244ISC corrected for nucl RBC Auto (Bld) [#/Vol]Leukocytes [#/volume] corrected for nucleated erythrocytes in Blood by Automated coun4.0-11.0[facility] Hospital [facility] ColumbusH Auto (RBC) [Entitic mass]on 82-91-7070APP (RBC) [Entitic mass]MCH [Entitic mass] by Automated count26.7-34.0[facility] HospitalMCHC Auto (RBC) [Mass/Vol]on 01-23-5097AXIV (RBC) [Mass/Vol]MCHC [Mass/volume] by Automated count29.9-35.2FOhioHealth Grant Medical CenterMCV Auto (RBC) [Entitic vol]on 41-37-1333OYB (RBC) [Entitic vol]MCV [Entitic volume] by Automated count 81.0-99.0[facility] HospitalNo Panel Informationon 42-17-257742- Hydroxy Vitamin D Total56.3 ng/mLPike Community HospitalComment on above:<20 ng/mL Vit D epjvybuzj15-<30 ng/mL Vit D rtrnqtxrogdg67-582 ng/mL Vit D sufficient>100 ng/mL Potential ToxicityParathyroid Hormone (Intact)9 pg/mL Wlifqizi24-95CdmapqrxsPike Community HospitalComment on above:Performed at: - [place]coBr[place] [id number] Director: Curry Rizzo PhD, Phone: [phone] Level4.8 mg/dLHigh2.6-4.7FOhioHealth Grant Medical CenterUrine BacteriaSMALL #/HPFAbnormalNONE [facility] HospitalUrine Occult BloodNegativeNEGATIVEPike Community HospitalUrine Other CastsSEEN #/LPFAbnormalNONE [facility] HospitalUrine Other CrystalsNone Seen #/HPFNone [facility] HospitalUrine Random Geuwyusdiu19.86 mg/dL20.00-300.00[facility] HospitalUrine RBC0-2 #/HPF0-2FOhioHealth Grant Medical CenterUrine Squamous Epithelial CellsMODERATE #/LPFAbnormalNONE/RAREPike Community HospitalUrine WBC2-5 #/HPFAbnormalNONE [facility] HospitalPlatelet mean volume Auto (Bld) [Entitic vol]on 79-84-3592Njgdzjip mean volume (Bld) [Entitic vol]Platelet mean volume [Entitic volume] in Blood by Automated count9.5-13.5FOhioHealth Grant Medical CenterPlatelets Auto (Bld) [#/Vol]on 37-58-2003Lirrdnygw (Bld) [#/Vol]Platelets [#/volume] in Blood by Automated icowo134-027WlkxxtvjyPike Community HospitalRBC Auto (Bld) [#/Vol]on 25-63-2015ILT (Bld) [#/Vol]Erythrocytes [#/volume] in Blood by Automated count Low4.20-5.40Wilson Healtherum or plasma anion gap determinationon 70-55-5057Omsvy gap [Moles/Vol]Serum or plasma anion gap determinationPike Community HospitalUrine protein/creatinine ratioon 07-29-8713Gpaarfy/Creatinine (U) [Ratio]Urine protein/creatinine ratioPike Community HospitalAlbumin [Mass/volume] in Serum or Plasmaon 01-01-2024 Albumin [Mass/Vol]3.5 g/dL2.9-4.4FOhioHealth Grant Medical CenterErythrocyte distribution width Auto (RBC) [Ratio]on 37-80-5851Fofeanazqbn distribution width (RBC) [Ratio]15.2 %High11.0-15.0[facility] HospitalEstimated glomerular filtration rate (GFR) non- Americanon 60-71-5983CGG/1.73 sq M.predicted among non-blacks MDRD (S/P/Bld) [Vol rate/Area]21 mL/min/{1.73_m2} Low>=60[facility] HospitalHematocrit Auto (Bld) [Volume fraction] on 82-16-2429Fvgamodqyw (Bld) [Volume fraction]32.4 %Low36.0-48.0[facility] HospitalHemoglobin [Mass/volume] in Bloodon 84-67-2803Kwstahwfvf (Bld) [Mass/Vol]10.4 g/dLLow12.0-16.0[facility] HospitalIgA [Mass/volume] in Serum or Plasmaon 86-73-9751OoR [Mass/Vol]580 mg/dLAbnormal 64-422P[facility] HospitalIgG [Mass/volume] in Serum or Plasmaon 27-12-0951AfR [Mass/Vol]1132 mg/wP126-2551KneeyttttPike Community HospitalIgM [Mass/volume] in Serum or Plasmaon 22-37-9992AxW [Mass/Vol]155 mg/wF66-240 [facility] HospitalImmunofixation for Urineon 01-01-2024 Interpretation Immunofixation (U) [Interp]Comment.[facility] HospitalComment on above:No monoclonality detected.Performed at: [employer] [id number] Director: Curry Rizzo PhD, Phone: [phone] light chains.kappa.free [Mass/volume] in Serum on 13-09-7865Cpfmllgpcvzflh light chains.kappa.free (S) [Mass/Vol]75.5 mg/L Abnormal3.3-19.4FOhioHealth Grant Medical CenterImmunoglobulin light chains.kappa.free/Immunoglobulin light chains.lambda.free [Priscilla 01-01-2024 Immunoglobulin light chains.kappa.free/Immunoglobulin light chains.lambda.free (S) [Mass ratio]1.250.26-1.65[facility] HospitalComment on above: Performed at: [employer] [id number] Director: Curry Rizzo PhD, Phone: [phone] light chains.lambda.free [Mass/volume] in Serum or Plasmaon 96-85-8577Hkpgpamekfmhma light chains.lambda.free [Mass/Vol]60.4 mg/LAbnormal5.7-26.3FOhioHealth Grant Medical CenterIron binding capacity [Mass/volume] in Serum or Plasmaon 78-63-3576Nzfy binding capacity [Mass/Vol]266.0 ug/dL250.0-450.0[facility] HospitalIron saturation [Mass Fraction] in Serum or Plasmaon 51-45-8773Trqb saturation [Mass fraction]16.2 %[facility] - Chemistry and Chemistry - challengeon 48-52-4491Jtfbchr [Mass/Vol] 3.3 g/dLLow3.4-5.0[facility] HospitalCalcium [Mass/Vol]9.2 mg/dL 8.5-10.1FOhioHealth Grant Medical CenterChloride [Moles/Vol]103 mmol/L98-107 [facility] HospitalCO2 [Moles/Vol]27.3 mmol/L21.0-32.0[facility] HospitalCreatinine [Mass/Vol]2.28 mg/dLHigh0.55-1.02[facility] HospitalFerritin [Mass/Vol]123.0 ng/mL8.0-252.0[facility] HospitalGFR/1.73 sq M.predicted MDRD (S/P/Bld) [Vol rate/Area]26 mL/min/{1.73_m2}Low>=60[facility] HospitalGlucose [Mass/Vol]139 mg/dOTgaj89-899YrmbtdhtxPike Community HospitalIron [Mass/Vol]43.0 ug/dLLow 50.0-170.0[facility] HospitalMagnesium [Mass/Vol]2.3 mg/dL1.8-2.4 [facility] HospitalPotassium [Moles/Vol]4.4 mmol/L3.5-5.1FRegency Hospital Cleveland Westodium [Moles/Vol]138 mmol/M486-136JyretspcoPike Community HospitalUrate [Mass/Vol]5.9 mg/dL2.6-6.0[facility] Urea nitrogen [Mass/Vol]50.0 mg/dLHigh7.0-18.0[facility] Urea nitrogen/Creatinine [Mass ratio]21.9 mg/mgPike Community Hospital Laboratory - Urinalysison 13-81-5359Nmjcffm (U) [Mass/Vol]93.2 mg/dLHigh<=11.9 [facility] HospitalLeukocytes [#/volume] corrected for nucleated erythrocytes in Blood by Automated counon 65-00-6280JNB corrected for nucl RBC Auto (Bld) [#/Vol]8.9 10 3/uL4.0-11.0[facility] ColumbusH Auto (RBC) [Entitic mass]on 10-52-0948ITY (RBC) [Entitic mass]27.4 pg26.7-34.0 [facility] HospitalMCHC Auto (RBC) [Mass/Vol]on 84-19-0839RATS (RBC) [Mass/Vol]32.1 g/dL29.9-35.2FOhioHealth Grant Medical CenterMCV Auto (RBC) [Entitic vol]on 80-84-1800YXC (RBC) [Entitic vol]85.3 fL81.0-99.0[facility] HospitalNo Panel Informationon 596589-Hdbcemk Vitamin D Total53.8 ng/mLPike Community HospitalComment on above:<20 ng/mL Vit D yrqgjtvve47-<30 ng/mL Vit D dmikyzzzzgvg19-680 ng/mL Vit D sufficient>100 ng/mL Potential ToxicityParathyroid Hormone (Intact)95 pg/eEAlnwcpiv22-10SbojirygyPike Community HospitalComment on above:Performed at: - [facility] [address] [id number] Director: Curry Rizzo PhD, Phone: [phone] Level4.0 mg/dL2.6-4.7FOhioHealth [facility] Medical Center Protein Electrophoresis M-SpikeNot Observed g/dLNot ObservedPike Community HospitalProtein Electrophoresis NoteComment.[facility] HospitalComment on above:Protein electrophoresis scan will follow via computer,mail, or prosthetic aide delivery.Urine Random Zdvhzgdspg83.24 mg/dL 20.00-300.00[facility] HospitalPlatelet mean volume Auto (Bld) [Entitic vol]on 11-86-0915Lhdnaaeh mean volume (Bld) [Entitic vol]10.9 fL 9.5-13.5FOhioHealth Grant Medical CenterPlatelets Auto (Bld) [#/Vol]on 17-82-0608Scpogdqke (Bld) [#/Vol]184 10 3/oC484-544AgubqvymtPike Community HospitalProtein [Mass/volume] in Serum or Plasmaon 28-16-8561Bbhpqfg [Mass/Vol]7.0 g/dL6.0-8.5FOhioHealth Grant Medical CenterRBC Auto (Bld) [#/Vol]on 01-01-2024 RBC (Bld) [#/Vol]3.80 10 6/uLLow4.20-5.40Wilson Healtherum globulin measurement (mass/volume)on 32-23-8051Amyjiofh (S) [Mass/Vol]3.5 g/dL 2.2-3.9Wilson Healtherum or plasma albumin/globulin mass ratioon 87-93-1250Xuwaxsf/Globulin [Mass ratio]1.1 {ratio}0.7-1.7FRegency Hospital Cleveland Westerum or plasma alpha 1 globulin measurement by electrophoresis (mass/volume)on 38-64-7184Eubww 1 globulin Elph [Mass/Vol]0.3 g/dL0.0-0.4FRegency Hospital Cleveland Westerum or plasma alpha 2 globulin measurement by electrophoresis (mass/volume)on 18-28-4389Ktrjf 2 globulin Elph [Mass/Vol]0.9 g/dL0.4-1.0Wilson Healtherum or plasma anion gap determinationon 36-19-8776Zhzek gap [Moles/Vol]12.1 mmol/LFRegency Hospital Cleveland Westerum or plasma beta globulin measurement by electrophoresis (mass/volume)on 84-49-0397Asxg globulin Elph [Mass/Vol]1.1 g/dL0.7-1.3FRegency Hospital Cleveland Westerum or plasma gamma globulin measurement by electrophoresis (mass/volume)on 31-71-6017Qzztz globulin Elph [Mass/Vol]1.3 g/dL 0.4-1.8Wilson Healtherum or plasma immunoelectrophoresis interpretationon 47-41-2041Nhvazheaokkeym IEP [Interp]Comment.[facility] HospitalComment on above:No monoclonality detected.Urine protein/creatinine ratioon 08-12-4059Xmuilnh/Creatinine (U) [Ratio]1.06[facility] HospitalUS Thyroid glandon 10-88-7658TklAllen[place] [address] Ultrasound Report Signed Patient: CLAUDIA ESTRELLA MR#: [id number] : 1950 Acct:[id number] Age/Sex: 73 / F ADM Date: 09/06/23 Loc: US Attending Dr: Sheyla Love M.D. Ordering Physician: Sheyla Love M.D. Date of Service: 09/06/23 Procedure(s): US thyroid Accession Number(s): [id number] cc: JOHN PERDOMO D.O.; Sheyla Love M.D. [place] [address] Patient Name: CLAUDIA ESTRELLA MRN: [id number] date: 1950 Sex: F Assigned Patient Location: US Current Patient Location: US Accession/Order Number: [id number] Exam Date: 09/06/2023 15:00 Report Date: 09/09/2023 [...] Renee M.D. Signed By: 09/09/23419 DD/ TD/TT: Set Up / Operator:TBHRadiology, Radiologist, - 09/09/2023 [place] [address] Ultrasound Report Signed Patient: CLAUDIA ESTRELLA MR#: [id number] : 1950 Acct:[id number] Age/Sex: 73 / F ADM Date: 09/06/23 Loc: US Attending Dr: Sheyla Love M.D. Ordering Physician: Sheyla Love M.D. Date of Service: 09/06/23 Procedure(s): US thyroid Accession Number(s): [id number] cc: JOHN PERDOMO D.O.; Sheyla Love M.D. [place] [id number] Patient Name: CLAUDIA ESTRELLA MRN: [id number] date: 1950 Sex: F Assigned Patient Location: US Current Patient Location: US Accession/Order Number: [id number] Exam Date: 09/06/2023 15:00 Report Date: 09/09/2023 [...] Signed By: 09/09/23 0420 DD/ 0418 TD/TT: Set Up / Operator: [facility] HealthcareRadiology Study observation (narrative)HUDSON HealthcareUS Thyroid glandOrdered By: Radiologist Radiology on 81-88-5501[facility] Work Phone: bNPon 68-93-7451Tbxyowshwpk peptide B (Bld) [Mass/Vol] 1458.0 pg/mLCritically high<=900.0Ohio[facility] Methodist HospitalComment on above: Performed By: #### LIPID, TSH, FT3 #### [facility] [address] [place] [address] Dr. Andrey Jimenez AUTO DIFFon 48-10-0653SRCC #0.1 103/ulNormal0.0-0.1The [facility] Medical CenterComment on above:Performed By: #### VITAD, FETIBC, FERR #### [facility] [address] [place] [address] Dr. Andrey HargroveBasophils/100 WBC (Bld)0.7 %Normal0.2-2.0[facility] Center Comment on above:Performed By: #### VITAD, FETIBC, FERR #### [facility] [address] [place] [address] Dr. Andrey Copeland #0.4 103/ulNormal0.0-0.7The [facility] CenterComment on above: Performed By: #### VITAD, FETIBC, FERR #### [facility] [address] [place] [address] Dr. Andrey Wilkinsonosinophils/100 WBC (Bld)4.6 %Normal0.9-7.0The [facility] Comment on above:Performed By: #### VITAD, FETIBC, FERR #### [facility] [address] [place] [address] Dr. Andrey Wilkinsonrythrocyte distribution width (RBC) [Ratio]13.7 %Mdzubd92.0-15.0 The [facility] CenterComment on above:Performed By: #### VITAD, FETIBC, FERR #### [facility] [address] [place] [address] Dr. Andrey HargroveHematocrit (Bld) [Volume fraction]35.5 %Critically low36.0-48.0 The [facility] CenterComment on above:Performed By: #### VITAD, FETIBC, FERR #### [facility] [address] [place] [address] Dr. Andrey HargroveHemoglobin (Bld) [Mass/Vol]12.0 g/hTCuinjr35.0-16.0The [facility] CenterComment on above:Performed By: #### VITAD, FETIBC, FERR #### [facility] [address] [place] [address] Dr. Andrey Willard #0.02 10e3/ulNormal0.00-0.03The [facility] CenterComment on above:Performed By: #### VITAD, FETIBC, FERR #### [facility] [address] [place] [address] Dr. Andrey Willard %0.2 %Normal0.0-0.5The [facility] CenterComment on above: Performed By: #### VITAD, FETIBC, FERR #### [facility] [address] [place] [address] Dr. Andrey Jarrett #1.5 103/ulNormal1.2-3.8The [facility] CenterComment on above:Performed By: #### VITAD, FETIBC, FERR #### [facility] [address] [place] [address] Dr. Andrey Derashocytes/100 WBC (Bld)18.1 %Critically low20.5-60.0The [facility] on above:Performed By: #### VITAD, FETIBC, FERR #### [facility] [address] [place] [address] Dr. Andrey ConnollyUAL DIFF REQNONormalThe [facility] CenterComment on above: Performed By: #### VITAD, FETIBC, FERR #### [facility] [address] [place] [address] Dr. Andrey Sevilla (RBC) [Entitic mass]29.3 hhPvmozn10.7-34.0The [facility] CenterComment on above:Performed By: #### VITAD, FETIBC, FERR #### [facility] [address] [place] [address] Dr. Andrey Coker (RBC) [Mass/Vol]33.8 g/nFVxpbnh78.9-35.2The [facility] CenterComment on above:Performed By: #### VITAD, FETIBC, FERR #### [facility] [address] [place] [address] Dr. Andrey Chua (RBC) [Entitic vol]86.8 tBAkpspz60.0-99.0The [facility] CenterComment on above:Performed By: #### VITAD, FETIBC, FERR #### [facility] [address] [place] [address] Dr. Andrey Magaña #0.7 103/ulNormal0.3-0.8The [facility] CenterComment on above:Performed By: #### VITAD, FETIBC, FERR #### [facility] [address] [place] [address] Dr. Andrey Hamiltonocytes/100 WBC (Bld)7.9 %Normal1.7-12.0The [facility] Comment on above:Performed By: #### VITAD, FETIBC, FERR #### [facility] [address] [place] [address] Dr. Andrey Hay #5.7 103/ulNormal1.4-6.5The [facility] CenterComment on above:Performed By: #### VITAD, FETIBC, FERR #### [facility] [address] [place] [address] Dr. Andrey Brionesutrophils/100 WBC (Bld)68.5 %Wzcfjs43.0-75.0The [facility] CenterComment on above:Performed By: #### VITAD, FETIBC, FERR #### [facility] [address] [place] [address] Dr. Andrey Melgozalet mean volume (Bld) [Entitic vol]10.4 fLNormal9.5-13.5The [facility] CenterComment on above:Performed By: #### VITAD, FETIBC, FERR #### [facility] [address] [place] [address] Dr. Andrey HargrovePLT204 103/vgWgixnq578-556Wrm [facility] CenterComment on above: Performed By: #### VITAD, FETIBC, FERR #### [facility] [address] [place] [address] Dr. Andrey HargroveRBC4.09 106/ulCritically low4.20-5.40The [facility] CenterComment on above:Performed By: #### VITAD, FETIBC, FERR #### [facility] [address] [place] [address] Dr. Andrey HargroveWBC8.3 103/ulNormal4.0-11.0The [facility] CenterComment on above: Performed By: #### VITSHAQ, FETIBC, FERR #### [facility] [address] [place] [address] Dr. Andrey HargrovePROF CHEM 8 (BAS METB)on 01-60-1189Jebjn gap [Moles/Vol]11.1 mmol/LNormalThe [facility] CenterComment on above:Performed By: #### LIPID, TSH, FT3 #### [facility] [address] [place] [address] Dr. Andrey HargroveCalcium [Mass/Vol]9.2 mg/dLNormal8.5-10.1The [facility] Comment on above:Performed By: #### LIPID, TSH, FT3 #### [facility] [address] [place] [address] Dr. Andrey HargroveChloride [Moles/Vol]102 mmol/YScaoxv66-165Vgb [facility] Comment on above:Performed By: #### LIPID, TSH, FT3 #### [facility] [address] [place] [address] Dr. Andrey HargroveCO2 [Moles/Vol]31.2 mmol/TWhqlpm35.0-32.0The [facility] Comment on above:Performed By: #### LIPID, TSH, FT3 #### [facility] [address] [place] [address] Dr. Andrey HargroveCreatinine [Mass/Vol]1.79 mg/dLCritically high0.55-1.02The [facility] CenterComment on above:Performed By: #### LIPID, TSH, FT3 #### [facility] [address] [address] [address] Andrey WilkinsonGFR-AF NNZNBFIQ46 mL/min/1.85k9Kvkroeezbc low>=60The [facility] CenterComment on above:Performed By: #### LIPID, TSH, FT3 #### [facility] [address] [address] [address] Andrey WilkinsonGFR-NON AF XDHWDNHJ23 mL/min/1.35u6Bmbrcygjjl low>=60The [facility] CenterComment on above:Performed By: #### LIPID, TSH, FT3 #### [facility] [address] [address] [address] Andrey HargroveGlucose [Mass/Vol]148 mg/dLCritically kuff19-011Nxy [facility] CenterComment on above:Performed By: #### LIPID, TSH, FT3 #### [facility] [address] [address] [address] nAdrey HargrovePotassium [Moles/Vol]3.3 mmol/LCritically low3.5-5.1The [facility] CenterComment on above:Performed By: #### LIPID, TSH, FT3 #### [facility] [address] [address] [address] Andrey HargroveSodium [Moles/Vol]141 mmol/UBxpvxc228-856Nms [facility] Comment on above:Performed By: #### LIPID, TSH, FT3 #### [facility] [address] [address] [address] Andrey HargroveUrea nitrogen [Mass/Vol]41.0 mg/dLCritically high7.0-18.0The [facility] CenterComment on above:Performed By: #### LIPID, TSH, FT3 #### [facility] [address] [address] [address] Andrey HargroveUrea nitrogen/Creatinine [Mass ratio]22.9 mg/mgNormalThe [facility] CenterComment on above:Performed By: #### LIPID, TSH, FT3 #### [facility] [address] [address] [address] Andrey PettitH INTACTon 92-54-8213ZYV, Smcfqc47 pg/vJPnulug34-12Nbt [facility] Hospitalment on above:Performed By: #### VITAD, FETIBC, FERR #### [facility] [address] [place], [place] [address] Dr. Andrey Suazo THYROIDon 96-50-5249FX THYROIDEXAMINATION: US THYROID HISTORY: Non-toxic multinodular goiter [...] Electronically authenticated by: RENETTA RENEE Date: 2022-08-24 16:[address] [place], [place] [address]FERRITINon 08-38-3108Ubdqyrhh [Mass/Vol]114.0 ng/mLNormal 8.0-252.0The [facility] on above:Performed By: #### VITAD, FETIBC, FERR #### [facility] [address] [place], [place] [address] Dr. Andrey HargroveHEMOGRAM AND PLATELon 06-82-9507Qbvnsyhrxl (Bld) [Volume fraction]34.9 %Critically low36.0-48.0The [facility] Hospitalment on above: Performed By: #### VITAD, FETIBC, FERR #### [facility] [address] [place] [address] Dr. Andrey HargroveHemoglobin (Bld) [Mass/Vol]11.8 g/dLCritically low12.0-16.0The [facility] CenterComment on above:Performed By: #### VITAD, FETIBC, FERR #### [facility] [address] [place] [address] Dr. Andrey Coker (RBC) [Entitic mass]28.6 zlArqqlp03.7-34.0The [facility] CenterComment on above:Performed By: #### VITAD, FETIBC, FERR #### [facility] [address] [place] [address] Dr. Andrey Coker (RBC) [Mass/Vol]33.8 g/wMXlvqpq19.9-35.2The [facility] CenterComment on above:Performed By: #### VITAD, FETIBC, FERR #### [facility] [address] [place] [address] Dr. Andrey Coker (RBC) [Entitic vol]84.7 kSNjegxx68.0-99.0The [facility] CenterCommymichigan medical center clare on above:Performed By: #### VITAD, FETIBC, FERR #### [facility] [address] [place] [address] Dr. Andrey HargrovePLT215 103/uaJqvzcw725-765Jid [facility] CenterCommymichigan medical center clare on above: Performed By: #### VITAD, FETIBC, FERR #### [facility] [address] [place] [address] Dr. Andrey HargroveRBC4.12 106/ulCritically low4.20-5.40The [facility] CenterComment on above:Performed By: #### VITAD, FETIBC, FERR #### [facility] [address] [place] [address] Dr. Andrey HargroveWBC9.2 103/ulNormal4.0-11.0The [facility] CenterComment on above: Performed By: #### VITAD, FETIBC, FERR #### [facility] [address] [place] [address] Dr. Andrey Mason AND TIBCon 08-23-2022% EFKSLSGIJA05.4 %NormalThe [facility] CenterComment on above:Performed By: #### VITAD, FETIBC, FERR #### [facility] [address] [place] [address] Dr. Andrey Mason [Mass/Vol]44.0 ug/dLCritically low50.0-170.0The [facility] CenterComment on above:Performed By: #### VITAD, FETIBC, FERR #### [facility] [address] [place] [address] Dr. Andrey HargroveTIBC EBIQQT276.0 ug/hOVxbujt906.0-450.0[facility] Comment on above:Performed By: #### VITAD, FETIBC, FERR #### [facility] [address] [place] [address] Dr. Andrey HargroveMAGNESIUMon 84-57-1939Jscbycosp [Mass/Vol]2.1 mg/dLNormal1.8-2.4 The [facility] CenterComment on above:Performed By: #### LIPID, TSH, FT3 #### [facility] [address] [place] [address] Dr. Andrey HargroveRENWILBERT FUNCTION PANELon 53-70-1210Esttzlt [Mass/Vol]3.3 g/dL Critically low3.4-5.0The [facility] CenterComment on above:Performed By: #### LIPID, TSH, FT3 #### [facility] [address] [place] [address] Dr. Andrey HargroveCalcium [Mass/Vol]9.4 mg/dLNormal8.5-10.1[facility] Comment on above:Performed By: #### LIPID, TSH, FT3 #### [facility] [address] [place] [address] Dr. Andrey HargroveChloride [Moles/Vol]103 mmol/ANntcyz63-039LozOhiohealth Dublin Methodist Hospital Comment on above:Performed By: #### LIPID, TSH, FT3 #### [facility] [address] [place] [address] Dr. Andrey HargroveCO2 [Moles/Vol]26.8 mmol/NBpcpaa70.0-32.0The [facility] Comment on above:Performed By: #### LIPID, TSH, FT3 #### [facility] [address] [place] [address] Dr. Andrey HargroveCreatinine [Mass/Vol]1.94 mg/dLCritically high0.55-1.02The [facility] CenterComment on above:Performed By: #### LIPID, TSH, FT3 #### [facility] [address] [place] [address] Dr. Andrey WilkinsonGFR-AF MXZNYIMC10 mL/min/1.87f4Ipgxeqzhau low>=60The [facility] CenterComment on above:Performed By: #### LIPID, TSH, FT3 #### [facility] [address] [place] [address] Dr. Andrey WilkinsonGFR-NON AF FDRHRLIU14 mL/min/1.56p4Vrclwjdntc low>=60The [facility] CenterComment on above:Performed By: #### LIPID, TSH, FT3 #### [facility] [address] [place] [address] Dr. Andrey HargroveGlucose [Mass/Vol]166 mg/dLCritically dnbm06-596CfkUC Medical Centerment on above:Performed By: #### LIPID, TSH, FT3 #### [facility] [address] [place] [address] Dr. Andrey HargrovePhosphate [Mass/Vol]4.6 mg/dLNormal2.6-4.7The [facility] Comment on above:Performed By: #### LIPID, TSH, FT3 #### [facility] [address] [place] [address] Dr. Andrey HargrovePotassium [Moles/Vol]4.3 mmol/LNormal3.5-5.1[facility] Comment on above:Performed By: #### LIPID, TSH, FT3 #### [facility] [address] [place] [address] Dr. Andrey Toneyum [Moles/Vol]137 mmol/LVrhmfy025-970TlrOhiohealth Dublin Methodist Hospital Comment on above:Performed By: #### LIPID, TSH, FT3 #### [facility] [address] [place] [address] Dr. Andrey Mccarty nitrogen [Mass/Vol]39.0 mg/dLCritically high7.0-18.0[facility] HospitalComment on above:Performed By: #### LIPID, TSH, FT3 #### [facility] [address] [place] [address] Dr. Andrey Link RANDOM W/MICROSCOPICon 11-97-9466PVYWXXDYSQRD SEENNormalNONE SEENOhiohealth Dublin Methodist HospitalComment on above:Performed By: #### VITAD, FETIBC, FERR #### [facility] [address] [place] [address] Dr. Andrey Godfrey Ql (U)NegativeNormalNEGATIVEThe [facility] Comment on above:Performed By: #### VITAD, FETIBC, FERR #### [facility] [address] [place] [address] Dr. Andrey Rodriguez SEENNormalNONE SEENOhiohealth Dublin Methodist HospitalComment on above:Performed By: #### VITAD, FETIBC, FERR #### [facility] [address] [place] [address] Dr. Andrey Lau (U)CLEARNormalCLEARThe [facility] CenterComment on above: Performed By: #### VITAD, FETIBC, FERR #### [facility] [address] [place] [address] Dr. Andrey Cervantes (U)LT. YELLOWNormalYELLOWOhiohealth Dublin Methodist HospitalComment on above:Performed By: #### VITAD, FETIBC, FERR #### [facility] [address] [place] [address] Dr. Andrey Mckenzie LM Nom (Urine sed)NONE SEENNormalNONE SEENOhiohealth Dublin Methodist HospitalComment on above:Performed By: #### VITAD, FETIBC, FERR #### [facility] [address] [address] [address] Andrey Castlethelial cells LM Ql (Urine sed)RARENormalNONE SEEN /RAREThe [facility] CenterComment on above:Performed By: #### VITAD, FETIBC, FERR #### [facility] [address] [address] [address] Andrey HargroveGlucose Ql (U)NegativeNormalNEGATIVEUc Medical Center HospitalComment on above:Performed By: #### VITAD, FETIBC, FERR #### [facility] [address] [address] [address] Andrey HargroveHemoglobin Ql (U)NegativeNormalNEGATIVESelect Medical [facility] on above:Performed By: #### VITAD, FETIBC, FERR #### [facility] [address] [place] [address] Dr. Andrey HargroveKetones Ql (U)NegativeNormalNEGATIVEOhiohealth Dublin Methodist HospitalComment on above:Performed By: #### VITAD, FETIBC, FERR #### [facility] [address] [address] [address] Andrey HargroveLEUKOCYTESNegativeNormalNEGATIVEOhiohealth Dublin Methodist HospitalComment on above:Performed By: #### VITAD, FETIBC, FERR #### [facility] [address] [address] [address] Andrey HargroveMUCOUSNONE SEENNormalNONE SEENOhiohealth Dublin Methodist HospitalComment on above:Performed By: #### VITAD, FETIBC, FERR #### [facility] [address] [address] [address] Andrey HargroveNitrite Ql (U)NegativeNormalNEGATIVEOhiohealth Dublin Methodist HospitalComment on above:Performed By: #### VITAD, FETIBC, FERR #### [facility] [address] [place] [address] Dr. Andrey HargrovepH (U)6.5 [pH]Normal5-9The [facility] CenterComment on above: Performed By: #### VITAD, FETIBC, FERR #### [facility] [address] [address] [address] Andrey HargroveRBCNONE SEENAbnormal0-2The [facility] CenterComment on above: Performed By: #### VITAD, FETIBC, FERR #### [facility] [address] [place] [address] Dr. Andrey HargroveSPEC GRAVITY1.050Bnvlzi9.005-<=1.025The [facility] HospitalComment on above:Performed By: #### VITAD, FETIBC, FERR #### [facility] [address] [place] [address] Dr. Andrey HargroveUA FYVOKYM13 mg/dlAbnormalNEGATIVE/ TRACEThe [facility] Comment on above:Performed By: #### VITAD, FETIBC, FERR #### [facility] [address] [place] [address] Dr. Andrey HargroveUrobilinogen Qn (U)0.2 {Kelly'U}/dLNormal0.2 - 1.0The [facility] CenterComment on above:Performed By: #### VITAD, FETIBC, FERR #### [facility] [address] [place] [address] Dr. Andrey HargroveWBCNONE SEENNormalNONE SEENThe [facility] CenterComment on above: Performed By: #### VITAD, FETIBC, FERR #### [facility] [address] [place] [address] Dr. Andrey HargroveURIC ACID SERUMon 42-68-0964Pvgbf [Mass/Vol]5.8 mg/dLNormal 2.6-6.0The [facility] CenterComment on above:Performed By: #### LIPID, TSH, FT3 #### [facility] [address] [place] [address] Dr. Andrey HargroveVITAMIN D 25 OHon 63-31-6395ZKK D 25-OH69.0 ng/mLNormalThe [facility] CenterComment on above:Performed By: #### VITAD, FETIBC, FERR #### [facility] [address] [place] [address] Dr. Andrey Blake RANGESSEKaterin Paulding County HospitalComment on above: Result Comment: <20 ng/mL Vit D deficient 20 - <30 ng/mL Vit D insufficient 30 - 100 ng/mL Vit D sufficient >100 ng/mL Potential ToxicityPerformed By: #### VITAD, FETIBC, FERR #### [facility] [address] [address] [address] Balderas ChangECHOCARDIO M/2D COMPLETEon [id number] M/2D COMPLETE Patient: CLAUDIA ESTRELLA Exam Date: 06/13/2022 : 1950 Gender:F Ordering : DR KARTHIK FISH M.D. Admission #: [id number] Family : Order #: [id number] CLICK HERE TO VIEW EXAM ECHOCARDIOGRAM REPORT [...] by: Karthik Fish M.D. on 06/14/2022 at 17:50[facility] HospitalBNPon 94-59-3134Zmwcytupboh peptide B (Bld) [Mass/Vol]4197.0 pg/mL Critically high<=900.0[facility] HospitalComment on above:Performed By: #### LIPID, TSH, FT3 #### [facility] [address] [address] [address] Andrey HargrovePROF CHEM 8 (BAS METB)on 69-76-5459Yrzmf gap [Moles/Vol]10.4 mmol/LNormalThe [facility] CenterComment on above:Performed By: #### VITAD, FETIBC, FERR #### [facility] [address] [place] [address] Dr. Andrey HargroveCalcium [Mass/Vol]9.4 mg/dLNormal8.5-10.1The [facility] Comment on above:Performed By: #### VITAD, FETIBC, FERR #### [facility] [address] [address] [address] Andrey HargroveChloride [Moles/Vol]99 mmol/FAxoaxl25-214Cka [facility] Comment on above:Performed By: #### VITAD, FETIBC, FERR #### [facility] [address] [place] [address] Dr. Andrey HargroveCO2 [Moles/Vol]33.8 mmol/LCritically high21.0-32.0The [facility] CenterComment on above:Performed By: #### VITAD, FETIBC, FERR #### [facility] [address] [place] [address] Dr. Andrey HargroveCreatinine [Mass/Vol]2.09 mg/dLCritically high0.55-1.02The [facility] CenterComment on above:Performed By: #### VITAD, FETIBC, FERR #### [facility] [address] [place] [address] Dr. Balderas ChangEGFR-AF CMOJRYNG42 mL/min/1.54a2Oseuneilxq low>=60The [facility] CenterComment on above:Performed By: #### VITAD, FETIBC, FERR #### [facility] [address] [address] [address] Andrey WilkinsonGFR-NON AF TCHTOASF25 mL/min/1.59f4Qvpimtsals low>=60The [facility] CenterComment on above:Performed By: #### VITAD, FETIBC, FERR #### [facility] [address] [address] [address] Andrey HargroveGlucose [Mass/Vol]75 mg/qRKbtuna23-066Cdd [facility] Comment on above:Performed By: #### VITAD, FETIBC, FERR #### [facility] [address] [place] [address] Dr. Andrey HargrovePotassium [Moles/Vol]3.2 mmol/LCritically low3.5-5.1The [facility] CenterComment on above:Performed By: #### VITAD, FETIBC, FERR #### [facility] [address] [place] [address] Dr. Andrey HargroveSodium [Moles/Vol]140 mmol/ORcasui961-235Xuj [facility] Comment on above:Performed By: #### VITAD, FETIBC, FERR #### [facility] [address] [place] [address] Dr. Andrey HargroveUrea nitrogen [Mass/Vol]61.0 mg/dLCritically high7.0-18.0The [facility] CenterComment on above:Performed By: #### VITAD, FETIBC, FERR #### [facility] [address] [place] [address] Dr. Andrey Mccarty nitrogen/Creatinine [Mass ratio]29.2 mg/mgNormalThe [facility] CenterComment on above:Performed By: #### VITAD, FETIBC, FERR #### [facility] [address] [place] [address] Dr. Andrey Monge 02-34-1927Yzczmaoiktd peptide B (Bld) [Mass/Vol]9365.0 pg/mLCritically high<=900.0The [facility] CenterComment on above:Performed By: #### VITAD, FETIBC, FERR #### [facility] [address] [place] [address] Dr. Andrey Kimble CHEM 8 (BAS METB)on [id number] gap [Moles/Vol]10.7 mmol/LNormalThe [facility] CenterComment on above:Performed By: #### VITAD, FETIBC, FERR #### [facility] [address] [place] [address] Dr. Andrey HargroveCalcium [Mass/Vol]9.1 mg/dLNormal8.5-10.1The [facility] Comment on above:Performed By: #### VITAD, FETIBC, FERR #### [facility] [address] [place] [address] Dr. Andrey HargroveChloride [Moles/Vol]98 mmol/XIcrpjm94-476Ijg [facility] Comment on above:Performed By: #### VITAD, FETIBC, FERR #### [facility] [address] [place] [address] Dr. Andrey HargroveCO2 [Moles/Vol]29.4 mmol/AQxizym00.0-32.0The [facility] Comment on above:Performed By: #### VITAD, FETIBC, FERR #### [facility] [address] [place] [address] Dr. Andrey HargroveCreatinine [Mass/Vol]2.44 mg/dLCritically high0.55-1.02The [facility] CenterComment on above:Performed By: #### VITAD, FETIBC, FERR #### [facility] [address] [place] [address] Dr. Andrey WilkinsonGFR-AF ESGJBUGH45 mL/min/1.25t0Nywermqita low>=60The [facility] CenterComment on above:Performed By: #### VITAD, FETIBC, FERR #### [facility] [address] [place] [address] Dr. Andrey WilkinsonGFR-NON AF CSPCUTGN23 mL/min/1.02w1Blztdynbxt low>=60The [facility] CenterComment on above:Performed By: #### VITAD, FETIBC, FERR #### [facility] [address] [address] [address] Andrey HargroveGlucose [Mass/Vol]135 mg/dLCritically rcnm97-040Taw [facility] CenterComment on above:Performed By: #### VITAD, FETIBC, FERR #### [facility] [address] [address] [address] Andrey HargrovePotassium [Moles/Vol]4.1 mmol/LNormal3.5-5.1The [facility] Comment on above:Performed By: #### VITAD, FETIBC, FERR #### [facility] [address] [place] [address] Dr. Andrey HargroveSodium [Moles/Vol]134 mmol/LCritically tic922-397Nvo [facility] CenterComment on above:Performed By: #### VITAD, FETIBC, FERR #### [facility] [address] [address] [address] Andrey HargroveUrea nitrogen [Mass/Vol]81.0 mg/dLCritically high7.0-18.0The [facility] CenterComment on above:Performed By: #### VITAD, FETIBC, FERR #### [facility] [address] [place] [address] Dr. Andrey HargroveUrea nitrogen/Creatinine [Mass ratio]33.2 mg/mgNormalThe [facility] CenterComment on above:Performed By: #### VITAD, FETIBC, FERR #### [facility] [address] [place] [address] Dr. Andrey HargroveXR ELBOW RT MIN 3 VIEWSon [id number] ELBOW RT MIN 3 VIEWSEXAM: XR ELBOW [...] Electronically authenticated by: BETSY LAZARO Date: 2022-06-01 17:24[facility] HospitalRENAL FUNCTION PANELon [id number] [Mass/Vol]3.4 g/dL Normal3.4-5.0[facility] HospitalComment on above:Performed By: #### LIPID, TSH, FT3 #### [facility] [address] [place] [address] Dr. Andrey HargroveCalcium [Mass/Vol]9.1 mg/dLNormal8.5-10.1[facility] Comment on above:Performed By: #### LIPID, TSH, FT3 #### [facility] [address] [address] [address] Andrey HargroveChloride [Moles/Vol]99 mmol/ZLolidm44-485PhoOhiohealth Dublin Methodist Hospital Comment on above:Performed By: #### LIPID, TSH, FT3 #### [facility] [address] [address] [address] Andrey HargroveCO2 [Moles/Vol]30.9 mmol/KAttefk59.0-32.0[facility] Comment on above:Performed By: #### LIPID, TSH, FT3 #### [facility] [address] [address] [address] Andrey HargroveCreatinine [Mass/Vol]2.24 mg/dLCritically high0.55-1.02[facility] HospitalComment on above:Performed By: #### LIPID, TSH, FT3 #### [facility] [address] [address] [address] Andrey WilkinsonGFR-AF EDIKCRXQ81 mL/min/1.86i2Vepokzjmwq low>=60The [facility] CenterComment on above:Performed By: #### LIPID, TSH, FT3 #### [facility] [address] [address] [address] Andrey WilkinsonGFR-NON AF BRRAYTOE76 mL/min/1.11n8Nljfnbfajw low>=60The [facility] CenterComment on above:Performed By: #### LIPID, TSH, FT3 #### [facility] [address] [address] [address] Andrey HargroveGlucose [Mass/Vol]94 mg/wRAslxad93-102CsaOhiohealth Dublin Methodist Hospital Comment on above:Performed By: #### LIPID, TSH, FT3 #### [facility] [address] [place] [address] Dr. Andrey HargrovePhosphate [Mass/Vol]4.7 mg/dLNormal2.6-4.7The [facility] Comment on above:Performed By: #### LIPID, TSH, FT3 #### [facility] [address] [address] [address] Andrey HargrovePotassium [Moles/Vol]3.5 mmol/LNormal3.5-5.1[facility] Comment on above:Performed By: #### LIPID, TSH, FT3 #### [facility] [address] [address] [address] Andrey HargroveSodium [Moles/Vol]136 mmol/PFkhwlt702-457Hwc [facility] Comment on above:Performed By: #### LIPID, TSH, FT3 #### [facility] [address] [address] [address] Andrey HargroveUrea nitrogen [Mass/Vol]72.0 mg/dLCritically high7.0-18.0The [facility] CenterComment on above:Performed By: #### LIPID, TSH, FT3 #### [facility] [address] [address] [address] Andrey PettitH INTACTon 64-26-3126DGY, Qjiufu54 pg/vFOnaqgi97-24Ayo [facility] CenterComment on above:Performed By: #### LIPID, TSH, FT3 #### [facility] [address] [place] [address] Dr. Andrey HargroveFERRITINon 04-49-0024Uhakmjur [Mass/Vol]190.0 ng/mLNormal 8.0-252.0The [facility] CenterComment on above:Performed By: #### LIPID, TSH, FT3 #### [facility] [address] [place] [address] Dr. Andrey HargroveFRSAMSON T3on [id number] T31.96 pg/mlLCritically low2.18-3.98The [facility] Hospitalment on above:Performed By: #### LIPID, TSH, FT3 #### [facility] [address] [place] [address] Dr. Andrey Joaquin T4on 04-69-2808Cidl T4 [Mass/Vol]1.33 ng/dLNormal0.76-1.46 The [facility] CenterComment on above:Performed By: #### LIPID, TSH, FT3 #### [facility] [address] [place] [address] Dr. Andrey HargroveHEMOGRAM AND PLATELon 70-84-8490Rotkugmewl (Bld) [Volume fraction]30.6 %Critically low36.0-48.0The [facility] on above: Performed By: #### VITAD, FETIBC, FERR #### [facility] [address] [place] [address] Dr. Andrey HargroveHemoglobin (Bld) [Mass/Vol]10.4 g/dLCritically low12.0-16.0The [facility] on above:Performed By: #### VITAD, FETIBC, FERR #### [facility] [address] [place] [address] Dr. Andrey HargroveH (RBC) [Entitic mass]28.6 foLvzeag60.7-34.0The [facility] Hospitalment on above:Performed By: #### VITAD, FETIBC, FERR #### [facility] [address] [place] [address] Dr. Andrey Coker (RBC) [Mass/Vol]34.0 g/wWZfepsd59.9-35.2The [facility] HospitalComment on above:Performed By: #### VITAD, FETIBC, FERR #### [facility] [address] [place] [address] Dr. Andrey Coker (RBC) [Entitic vol]84.1 rZLqmnmz93.0-99.0The [facility] HospitalComment on above:Performed By: #### VITAD, FETIBC, FERR #### [facility] [address] [place] [address] Dr. Andrey HargrovePLT179 103/wdVraqbr255-563Vsx [facility] CenterComment on above: Performed By: #### VITAD, FETIBC, FERR #### [facility] [address] [place] [address] Dr. Andrey HargroveRBC3.64 106/ulCritically low4.20-5.40The [facility] CenterComment on above:Performed By: #### VITAD, FETIBC, FERR #### [facility] [address] [place] [address] Dr. Andrey HargroveWBC9.5 103/ulNormal4.0-11.0The [facility] CenterComment on above: Performed By: #### VITAD, FETIBC, FERR #### [facility] [address] [place] [address] Dr. Andrey Mason AND TIBCon 05-23-2022% MBIEIUJACU04.9 %NormalThe [facility] CenterComment on above:Performed By: #### LIPID, TSH, FT3 #### [facility] [address] [place] [address] Dr. Andrey Mason [Mass/Vol]44.0 ug/dLCritically low50.0-170.0The [facility] CenterComment on above:Performed By: #### LIPID, TSH, FT3 #### [facility] [address] [address] [address] Andrey HargroveTIBC LQPVPJ588.0 ug/kHJilbsk281.0-450.0[facility] Comment on above:Performed By: #### LIPID, TSH, FT3 #### [facility] [address] [place] [address] Dr. Andrey RomoID PROFILEon 11-36-0426INOA-HDL RATIO NORMSEE [facility] HospitalComment on above:Result Comment: 3.3 - 4.4 LOW RISK 4.4 - 7.1 AVERAGE RISK 7.1 - 11.0 MODERATE RISK >11.0 HIGH RISKPerformed By: #### LIPID, TSH, FT3 #### [facility] [address] [place] [address] Dr. Andrey Anguloesterol [Mass/Vol]129 mg/dLNormal<=200The [facility] Comment on above:Performed By: #### LIPID, TSH, FT3 #### [facility] [address] [place] [address] Dr. Andrey Anguloesterol in HDL [Mass/Vol]55 mg/nUJgmjns44-84GomOhiohealth Dublin Methodist HospitalComment on above:Performed By: #### LIPID, TSH, FT3 #### [facility] [address] [place] [address] Dr. Andrey HargroveCholesterol in LDL [Mass/Vol]59.6 mg/dLSalem City HospitalComment on above:Performed By: #### LIPID, TSH, FT3 #### [facility] [address] [place] [address] Dr. Andrey Smith.total/Cholesterol in HDL [Mass ratio]2.3 {ratio} NormalOhiohealth Dublin Methodist HospitalComment on above:Performed By: #### LIPID, TSH, FT3 #### [facility] [address] [place] [address] Dr. Andrey Hughes NORMAL> or = 60 mg/dl - LOW CARDIOVASCULAR RISK <40 mg/dl - HIGH CARDIOVASCULAR RISKSalem City HospitalComment on above:Performed By: #### LIPID, TSH, FT3 #### [facility] [address] [address] [address] Andrey Powers CALC NORMALSEE BELOWSalem City HospitalComment on above:Result Comment: <100 mg/dl OPTIMAL 100 - 129 mg/dl NEAR OR ABOVE OPTIMAL 130 - 159 mg/dl BORDERLINE HIGH 160 - 189 mg/dl HIGH >190 mg/dl VERY HIGH Performed By: #### LIPID, TSH, FT3 #### [facility] [address] [address] [address] Andrey HargroveTriglyceride [Mass/Vol]72 mg/dLNormal<=150The [facility] Comment on above:Performed By: #### LIPID, TSH, FT3 #### [facility] [address] [place] [address] Dr. Andrey HargroveVLDL CALC14.4 mg/dLSalem City HospitalComment on above: Performed By: #### LIPID, TSH, FT3 #### [facility] [address] [place] [address] Dr. Andrey HargroveMAGNESIUMon 02-04-4134Cdtwhiuwr [Mass/Vol]2.2 mg/dLNormal1.8-2.4 The [facility] CenterComment on above:Performed By: #### LIPID, TSH, FT3 #### [facility] [address] [place] [address] Dr. Andrey HargroveRENAL FUNCTION PANELon 75-83-2485Bttugcc [Mass/Vol]3.5 g/dLNormal 3.4-5.0[facility] HospitalComment on above:Performed By: #### LIPID, TSH, FT3 #### [facility] [address] [place] [address] Dr. Andrey HargroveCalcium [Mass/Vol]10.0 mg/dLNormal8.5-10.1[facility] Comment on above:Performed By: #### LIPID, TSH, FT3 #### [facility] [address] [place] [address] Dr. Andrey HargroveChloride [Moles/Vol]98 mmol/ZHfgxyv22-781Thj [facility] Comment on above:Performed By: #### LIPID, TSH, FT3 #### [facility] [address] [address] [address] Andrey HargroveCO2 [Moles/Vol]34.3 mmol/LCritically high21.0-32.0The [facility] CenterComment on above:Performed By: #### LIPID, TSH, FT3 #### [facility] [address] [place] [address] Dr. Andrey HargroveCreatinine [Mass/Vol]2.24 mg/dLCritically high0.55-1.02The [facility] CenterComment on above:Performed By: #### LIPID, TSH, FT3 #### [facility] [address] [place] [address] Dr. Andrey WilkinsonGFR-AF VQTYHHMN98 mL/min/1.59r6Sdjlhiqrjz low>=60The [facility] CenterComment on above:Performed By: #### LIPID, TSH, FT3 #### [facility] [address] [place] [address] Dr. Andrey WilkinsonGFR-NON AF COFCRPGX94 mL/min/1.72t2Bzzwfrojpg low>=60The [facility] CenterComment on above:Performed By: #### LIPID, TSH, FT3 #### [facility] [address] [place] [address] Dr. Andrey HargroveGlucose [Mass/Vol]123 mg/dLCritically eypc20-498Hjo [facility] CenterComment on above:Performed By: #### LIPID, TSH, FT3 #### [facility] [address] [place] [address] Dr. Andrey HargrovePhosphate [Mass/Vol]5.2 mg/dLCritically high2.6-4.7The [facility] CenterComment on above:Performed By: #### LIPID, TSH, FT3 #### [facility] [address] [place] [address] Dr. Andrey HargrovePotassium [Moles/Vol]3.0 mmol/LCritically low3.5-5.1The [facility] CenterComment on above:Performed By: #### LIPID, TSH, FT3 #### [facility] [address] [address] [address] Andrey Toneyum [Moles/Vol]137 mmol/AXjtvuc292-241AdjOhiohealth Dublin Methodist Hospital Comment on above:Performed By: #### LIPID, TSH, FT3 #### [facility] [address] [place] [address] Dr. Andrey Mccarty nitrogen [Mass/Vol]80.0 mg/dLCritically high7.0-18.0The [facility] CenterComment on above:Performed By: #### LIPID, TSH, FT3 #### [facility] [address] [place] [address] Dr. Andrey Hernandez 13-71-3536RLE6.652 uIU/mLCritically high0.358-3.740The [facility] CenterComment on above:Performed By: #### LIPID, TSH, FT3 #### [facility] [address] [place] [address] Dr. Andrey Link RANDOM W/MICROSCOPICon 80-55-1663GQSXAXWTZKJV SEENNormalNONE SEENOhiohealth Dublin Methodist HospitalComment on above:Performed By: #### VITAD, FETIBC, FERR #### [facility] [address] [place] [address] Dr. Andrey Godfrey Ql (U)NegativeNormalNEGATIVEOhiohealth Dublin Methodist Hospital Comment on above:Performed By: #### VITAD, FETIBC, FERR #### [facility] [address] [place] [address] Dr. Andrey KenNONE SEENNormalNONE SEENOhiohealth Dublin Methodist HospitalComment on above:Performed By: #### VITAD, FETIBC, FERR #### [facility] [address] [place] [address] Dr. Andrey Lau (U)CLEARNormalCLEARThe [facility] CenterComment on above: Performed By: #### VITAD, FETIBC, FERR #### [facility] [address] [place] [address] Dr. Yilan ChangColor (U)LT. YELLOWNormalYELLOWOhiohealth Dublin Methodist HospitalComment on above:Performed By: #### VITAD, FETIBC, FERR #### [facility] [address] [address] [address] Andrey HargroveCrystals LM Nom (Urine sed)NONE SEENNormalNONE SEENOhiohealth Dublin Methodist HospitalComment on above:Performed By: #### VITAD, FETIBC, FERR #### [facility] [address] [address] [address] Andrey Wilkinsonpithelial cells LM Ql (Urine sed)FEWAbnormalNONE SEEN /RAREOhiohealth Dublin Methodist HospitalComment on above:Performed By: #### VITAD, FETIBC, FERR #### [facility] [address] [place] [address] Dr. Andrey HargroveGlucose Ql (U)NegativeNormalNEGATIVEOhiohealth Dublin Methodist HospitalComment on above:Performed By: #### VITAD, FETIBC, FERR #### [facility] [address] [place] [address] Dr. Andrey HargroveHemoglobin Ql (U)TRACE-INTACTAbnormalNEGATIVEOhiohealth Dublin Methodist HospitalComment on above:Performed By: #### VITAD, FETIBC, FERR #### [facility] [address] [place] [address] Dr. Andrey HargroveKetones Ql (U)NegativeNormalNEGATIVEOhiohealth Dublin Methodist HospitalComment on above:Performed By: #### VITAD, FETIBC, FERR #### [facility] [address] [place] [address] Dr. Andrey HargroveLEUKOCYTESSMALLAbnormalNEGATIVEOhiohealth Dublin Methodist HospitalComment on above:Performed By: #### VITAD, FETIBC, FERR #### [facility] [address] [place] [address] Dr. Andrey HargroveMUCOUSNONE SEENNormalNONE SEENOhiohealth Dublin Methodist HospitalComment on above:Performed By: #### VITAD, FETIBC, FERR #### [facility] [address] [place] [address] Dr. Andrey Bernal Ql (U)NegativeNormalNEGATIVEThe [facility] CenterComment on above:Performed By: #### VITAD, FETIBC, FERR #### [facility] [address] [place] [address] Dr. Andrey HargrovepH (U)5.5 [pH]Normal5-9The [facility] CenterComment on above: Performed By: #### VITAD, FETIBC, FERR #### [facility] [address] [place] [address] Dr. Andrey HargroveYuoiwHEV4-9Qbufzf7-9Vdo [facility] CenterComment on above:Performed By: #### VITSHAQ, FETIBC, FERR #### [facility] [address] [place] [address] Dr. Andrey HargroveSPEC GRAVITY1.737Vkzonk1.005-<=1.025The [facility] CenterComment on above:Performed By: #### VITAD, FETIBC, FERR #### [facility] [address] [place] [address] Dr. Andrey Link PROTEINTRACENormalNEGATIVE/ TRACEThe [facility] CenterComment on above:Performed By: #### VITSHAQ, FETIBC, FERR #### [facility] [address] [place] [address] Dr. Andrey Mercadobilino Qn (U)0.2 {Kelly'U}/dLNormal0.2 - 1.0The [facility] CenterComment on above:Performed By: #### VITAD, FETIBC, FERR #### [facility] [address] [place] [address] Dr. Andrey HargroveWBC0-2AbnormalNONE SEENThe [facility] CenterComment on above: Performed By: #### VITAD, FETIBC, FERR #### [facility] [address] [place] [address] Dr. Andrey HargroveURIC ACID SERUMon 08-29-9226Bjrqa [Mass/Vol]7.4 mg/dLCritically high2.6-6.0The [facility] CenterComment on above:Performed By: #### LIPID, TSH, FT3 #### [facility] [address] [place] [address] Dr. Anrdey Sanchez T PROTEIN CREAT RATIOon 70-67-4944Kntrnys (U) [Mass/Vol] 39.9 mg/dLCritically high<=12.0[facility] HospitalComment on above:Performed By: #### URTPCR #### [facility] [address] [place] [address] Dr. Andrey Fox PROT CREAT RAT0.64NoCoshocton Regional Medical CenterComment on above: Performed By: #### URTPCR #### [facility] [address] [place] [address] Dr. Andrey Sanchez CREAT62.30 mg/jHMncksz45.00-300.00[facility] Comment on above:Performed By: #### URTPCR #### [facility] [address] [place] [address] Dr. Andrey HargroveVITAMIN D 25 OHon 05-43-7877MPK D 25-OH90.7 ng/mLNormalOhiohealth Dublin Methodist HospitalComment on above:Performed By: #### LIPID, TSH, FT3 #### [facility] [address] [place] [address] Dr. Andrey Blake RANGESSEE BELOWSalem City HospitalComment on above: Result Comment: <20 ng/mL Vit D deficient 20 - <30 ng/mL Vit D insufficient 30 - 100 ng/mL Vit D sufficient >100 ng/mL Potential ToxicityPerformed By: #### LIPID, TSH, FT3 #### [facility] [address] [place] [address] Dr. Andrey HargroveMAGNESIUMon 31-10-1164Yuzoffhcg [Mass/Vol]2.1 mg/dLNormal1.8-2.4 [facility] HospitalCommymichigan medical center clare on above:Performed By: #### LIPID, TSH, FT3 #### [facility] [address] [place] [address] Dr. Andrey HargrovePROF CHEM 8 (BAS METB)on 44-86-9095Anxvh gap [Moles/Vol]12.0 mmol/LNormalThe [facility] CenterComment on above:Performed By: #### LIPID, TSH, FT3 #### [facility] [address] [address] [address] Andrey HargroveCalcium [Mass/Vol]9.0 mg/dLNormal8.5-10.1The [facility] Comment on above:Performed By: #### LIPID, TSH, FT3 #### [facility] [address] [address] [address] Andrey HargroveChloride [Moles/Vol]97 mmol/LCritically ohp98-361Kqv [facility] CenterComment on above:Performed By: #### LIPID, TSH, FT3 #### [facility] [address] [address] [address] Andrey HargroveCO2 [Moles/Vol]30.4 mmol/WVazfyp71.0-32.0The [facility] Comment on above:Performed By: #### LIPID, TSH, FT3 #### [facility] [address] [address] [address] Andrey HargroveCreatinine [Mass/Vol]2.28 mg/dLCritically high0.55-1.02The [facility] CenterComment on above:Performed By: #### LIPID, TSH, FT3 #### [facility] [address] [address] [address] Andrey WilkinsonGFR-AF RRGGGDCC00 mL/min/1.01y2Immqrtsjwq low>=60The [facility] CenterComment on above:Performed By: #### LIPID, TSH, FT3 #### [facility] [address] [address] [address] Andrey WilkinsonGFR-NON AF DUWXIIDE11 mL/min/1.21n1Hnkjximbgs low>=60The [facility] CenterComment on above:Performed By: #### LIPID, TSH, FT3 #### [facility] [address] [address] [address] Andrey HargroveGlucose [Mass/Vol]190 mg/dLCritically bdbw30-020Jdv [facility] CenterComment on above:Performed By: #### LIPID, TSH, FT3 #### [facility] [address] [address] [address] Andrey HargrovePotassium [Moles/Vol]3.4 mmol/LCritically low3.5-5.1The [facility] CenterComment on above:Performed By: #### LIPID, TSH, FT3 #### [facility] [address] [address] [address] Andrey HargroveSodium [Moles/Vol]136 mmol/HPoghau050-458Vmy [facility] Comment on above:Performed By: #### LIPID, TSH, FT3 #### [facility] [address] [address] [address] Andrey HargroveUrea nitrogen [Mass/Vol]73.0 mg/dLCritically high7.0-18.0The [facility] CenterComment on above:Performed By: #### LIPID, TSH, FT3 #### [facility] [address] [address] [address] Andrey Mccarty nitrogen/Creatinine [Mass ratio]32.0 mg/mgNoCoshocton Regional Medical CenterComment on above:Performed By: #### LIPID, TSH, FT3 #### [facility] [address] [place] [address] Dr. Andrey HargroveXR CHEST 2 Von 82-10-2023QH CHEST 2 VEXAMINATION: XR CHEST 2 V [...] Electronically authenticated by: RENETTA RENEE Date: 2022-05-12 09:12[facility] HospitalBNPon 14-47-3147Bfnbmqovaru peptide B (Bld) [Mass/Vol]7074.0 pg/mLCritically high<=900.0The [facility] CenterComment on above:Performed By: #### VITAD, FETIBC, FERR #### [facility] [address] [place] [address] Dr. Andrey Jimenez AUTO DIFFon 44-19-0741FZUX #0.1 103/ulNormal0.0-0.1The [facility] CenterComment on above:Performed By: #### VITAD, FETIBC, FERR #### [facility] [address] [place] [address] Dr. Andrey HargroveBasophils/100 WBC (Bld)0.7 %Normal0.2-2.0[facility] Comment on above:Performed By: #### VITAD, FETIBC, FERR #### [facility] [address] [place] [address] Dr. Andrey Copeland #0.3 103/ulNormal0.0-0.7The [facility] CenterComment on above: Performed By: #### VITAD, FETIBC, FERR #### [facility] [address] [place] [address] Dr. Andrey Wilkinsonosinophils/100 WBC (Bld)3.8 %Normal0.9-7.0The [facility] Comment on above:Performed By: #### VITAD, FETIBC, FERR #### [facility] [address] [place] [address] Dr. Andrey Wilkinsonrythrocyte distribution width (RBC) [Ratio]14.7 %Bqxcrl02.0-15.0 [facility] HospitalComment on above:Performed By: #### VITAD, FETIBC, FERR #### [facility] [address] [place] [address] Dr. Andrey HargroveHematocrit (Bld) [Volume fraction]29.6 %Critically low36.0-48.0 The [facility] CenterComment on above:Performed By: #### VITAD, FETIBC, FERR #### [facility] [address] [place] [address] Dr. Andrey HargroveHemoglobin (Bld) [Mass/Vol]9.9 g/dLCritically low12.0-16.0The [facility] CenterComment on above:Performed By: #### VITAD, FETIBC, FERR #### [facility] [address] [place] [address] Dr. Andrey Willard #0.03 10e3/ulNormal0.00-0.03The [facility] CenterComment on above:Performed By: #### VITAD, FETIBC, FERR #### [facility] [address] [place] [address] Dr. Andrey Willard %0.4 %Normal0.0-0.5The [facility] CenterComment on above: Performed By: #### VITAD, FETIBC, FERR #### [facility] [address] [place] [address] Dr. Andrey Jarrett #1.3 103/ulNormal1.2-3.8The [facility] CenterComment on above:Performed By: #### VITAD, FETIBC, FERR #### [facility] [address] [place] [address] Dr. Andrey Derashocytes/100 WBC (Bld)16.3 %Critically low20.5-60.0The [facility]ment on above:Performed By: #### VITAD, FETIBC, FERR #### [facility] [address] [place] [address] Dr. Andrey ConnollyUAL DIFF REQNONormalThe [facility] CenterComment on above: Performed By: #### VITAD, FETIBC, FERR #### [facility] [address] [place] [address] Dr. Andrey Sevilla (RBC) [Entitic mass]28.7 tuVstvsn28.7-34.0The [facility] CenterComment on above:Performed By: #### VITAD, FETIBC, FERR #### [facility] [address] [place] [address] Dr. Andrey Coker (RBC) [Mass/Vol]33.4 g/yRGkftaz54.9-35.2The [facility] CenterComment on above:Performed By: #### VITAD, FETIBC, FERR #### [facility] [address] [place] [address] Dr. Andrey Chua (RBC) [Entitic vol]85.8 xMZvxign85.0-99.0The [facility] CenterComment on above:Performed By: #### VITAD, FETIBC, FERR #### [facility] [address] [place] [address] Dr. Andrey Magaña #0.7 103/ulNormal0.3-0.8The [facility] CenterComment on above:Performed By: #### VITAD, FETIBC, FERR #### [facility] [address] [place] [address] Dr. Andrey Hamiltonocytes/100 WBC (Bld)8.7 %Normal1.7-12.0The [facility] Comment on above:Performed By: #### VITAD, FETIBC, FERR #### [facility] [address] [place] [address] Dr. Andrey Hay #5.4 103/ulNormal1.4-6.5The [facility] CenterComment on above:Performed By: #### VITAD, FETIBC, FERR #### [facility] [address] [place] [address] Dr. Andrey Brionesutrophils/100 WBC (Bld)70.1 %Goedhz27.0-75.0The [facility] CenterComment on above:Performed By: #### VITAD, FETIBC, FERR #### [facility] [address] [place] [address] Dr. Andrey Khan mean volume (Bld) [Entitic vol]10.9 fLNormal9.5-13.5The [facility] CenterComment on above:Performed By: #### VITAD, FETIBC, FERR #### [facility] [address] [place] [address] Dr. Andrey HargrovePLT171 103/uxDayfoz833-425Ojj [facility] CenterComment on above: Performed By: #### VITAD, FETIBC, FERR #### [facility] [address] [place] [address] Dr. Andrey HargroveRBC3.45 106/ulCritically low4.20-5.40The [facility] CenterComment on above:Performed By: #### VITAD, FETIBC, FERR #### [facility] [address] [place] [address] Dr. Andrey HargroveWBC7.7 103/ulNormal4.0-11.0The [facility] CenterComment on above: Performed By: #### VITAD, FETIBC, FERR #### [facility] [address] [place] [address] Dr. Andrey HargrovePROF CHEM 8 (BAS METB)on 88-84-3748Shsoa gap [Moles/Vol]9.8 mmol/LNormalThe [facility] CenterComment on above:Performed By: #### VITAD, FETIBC, FERR #### [facility] [address] [place] [address] Dr. Andrey HargroveCalcium [Mass/Vol]9.1 mg/dLNormal8.5-10.1The [facility] Comment on above:Performed By: #### VITAD, FETIBC, FERR #### [facility] [address] [place] [address] Dr. Andrey HargroveChloride [Moles/Vol]96 mmol/LCritically ifg09-690Gzv [facility] CenterComment on above:Performed By: #### VITAD, FETIBC, FERR #### [facility] [address] [place] [address] Dr. Andrey HargroveCO2 [Moles/Vol]30.8 mmol/IZmryan12.0-32.0The [facility] Comment on above:Performed By: #### VITAD, FETIBC, FERR #### [facility] [address] [place] [address] Dr. Andrey HargroveCreatinine [Mass/Vol]2.28 mg/dLCritically high0.55-1.02The [facility] CenterComment on above:Performed By: #### VITAD, FETIBC, FERR #### [facility] [address] [place] [address] Dr. Andrey WilkinsonGFR-AF CIRXFLAI87 mL/min/1.45y4Iezcyelzyo low>=60The [facility] CenterComment on above:Performed By: #### VITAD, FETIBC, FERR #### [facility] [address] [address] [address] Andrey WilkinsonGFR-NON AF HPPFGMFB90 mL/min/1.04v4Bzkauhkynf low>=60The [facility] on above:Performed By: #### VITAD, FETIBC, FERR #### [facility] [address] [place] [address] Dr. Adnrey HargroveGlucose [Mass/Vol]158 mg/dLCritically izom54-983Aou [facility] CenterComment on above:Performed By: #### VITAD, FETIBC, FERR #### [facility] [address] [place] [address] Dr. Andrey HargrovePotassium [Moles/Vol]3.6 mmol/LNormal3.5-5.1The [facility] Comment on above:Performed By: #### VITAD, FETIBC, FERR #### [facility] [address] [place] [address] Dr. Andrey HargroveSodium [Moles/Vol]133 mmol/LCritically ouh447-918Apo [facility] Hospitalment on above:Performed By: #### VITAD, FETIBC, FERR #### [facility] [address] [place] [address] Dr. Andrey HargroveUrea nitrogen [Mass/Vol]66.0 mg/dLCritically high7.0-18.0The [facility] Hospitalment on above:Performed By: #### VITAD, FETIBC, FERR #### [facility] [address] [place] [address] Dr. Andrey HargroveUrea nitrogen/Creatinine [Mass ratio]28.9 mg/mgNormalThe [facility] HospitalComment on above:Performed By: #### VITAD, FETIBC, FERR #### [facility] [address] [address] [address] Andrey HargroveMAGNESIUMon 17-08-4474Xpgxuygyd [Mass/Vol]1.9 mg/dLNormal1.8-2.4 The [facility] CenterComment on above:Performed By: #### VITAD, FETIBC, FERR #### [facility] [address] [address] [address] Andrey HargrovePROF CHEM 8 (BAS METB)on 08-74-7873Fhasj gap [Moles/Vol]11.7 mmol/LNormalThe [facility] CenterComment on above:Performed By: #### VITAD, FETIBC, FERR #### [facility] [address] [place] [address] Dr. Andrey HargroveCalcium [Mass/Vol]9.4 mg/dLNormal8.5-10.1The [facility] Comment on above:Performed By: #### VITAD, FETIBC, FERR #### [facility] [address] [address] [address] Andrey HargroveChloride [Moles/Vol]97 mmol/LCritically cla67-779Ovh [facility] CenterComment on above:Performed By: #### VITAD, FETIBC, FERR #### [facility] [address] [address] [address] Andrey HargroveCO2 [Moles/Vol]29.0 mmol/DDmoctx29.0-32.0The [facility] Comment on above:Performed By: #### VITAD, FETIBC, FERR #### [facility] [address] [address] [address] Andrey HargroveCreatinine [Mass/Vol]2.02 mg/dLCritically high0.55-1.02The [facility] CenterComment on above:Performed By: #### VITAD, FETIBC, FERR #### [facility] [address] [place] [address] Dr. Balderas ChangEGFR-AF UAFOZZII48 mL/min/1.30i6Zrjuyubecp low>=60The [facility] CenterComment on above:Performed By: #### VITAD, FETIBC, FERR #### [facility] [address] [address] [address] Balderas ChangEGFR-NON AF HJGDAXCY74 mL/min/1.99o0Alvitxzftc low>=60The [facility] CenterComment on above:Performed By: #### VITAD, FETIBC, FERR #### [facility] [address] [address] [address] Andrey HargroveGlucose [Mass/Vol]204 mg/dLCritically gish82-530Aoi [facility] CenterComment on above:Performed By: #### VITAD, FETIBC, FERR #### [facility] [address] [place] [address] Dr. Andrey HargrovePotassium [Moles/Vol]3.7 mmol/LNormal3.5-5.1The [facility] Comment on above:Performed By: #### VITAD, FETIBC, FERR #### [facility] [address] [address] [address] Andrey HargroveSodium [Moles/Vol]134 mmol/LCritically lno962-214Ykb [facility] Hospitalment on above:Performed By: #### VITAD, FETIBC, FERR #### [facility] [address] [place] [address] Dr. Andrey HargroveUrea nitrogen [Mass/Vol]60.0 mg/dLCritically high7.0-18.0The [facility] CenterComment on above:Performed By: #### VITAD, FETIBC, FERR #### [facility] [address] [place] [address] Dr. Andrey HargroveUrea nitrogen/Creatinine [Mass ratio]29.7 mg/mgNormalThe [facility] CenterComment on above:Performed By: #### VITAD, FETIBC, FERR #### [facility] [address] [place] [address] Dr. Andrey PettitH INTACTon 06-30-8384XXE, Bjkrpe22 pg/nROdcsdn19-92Pdb [facility] Hospitalment on above:Performed By: #### LIPID, TSH, FT3 #### [facility] [address] [place] [address] Dr. Andrey HargroveFERRITINon 19-30-9207Nnwawkrz [Mass/Vol]133.0 ng/mLNormal 8.0-252.0The [facility] Hospitalment on above:Performed By: #### VITAD, FETIBC, FERR #### [facility] [address] [place] [address] Dr. Andrey HargroveHEMOGRAM AND PLATELon 25-14-7276Vbjshtiidi (Bld) [Volume fraction]31.7 %Critically low36.0-48.0The [facility] on above: Performed By: #### VITAD, FETIBC, FERR #### [facility] [address] [place] [address] Dr. Andrey HargroveHemoglobin (Bld) [Mass/Vol]10.2 g/dLCritically low12.0-16.0The [facility] Hospitalment on above:Performed By: #### VITAD, FETIBC, FERR #### [facility] [address] [place] [address] Dr. Andrey Coker (RBC) [Entitic mass]28.3 cmAkrvuo08.7-34.0The [facility] CenterCommymichigan medical center clare on above:Performed By: #### VITAD, FETIBC, FERR #### [facility] [address] [place] [address] Dr. Andrey Coker (RBC) [Mass/Vol]32.2 g/pHYsebyi57.9-35.2The [facility] Hospitalment on above:Performed By: #### VITAD, FETIBC, FERR #### [facility] [address] [place] [address] Dr. Andrey Coker (RBC) [Entitic vol]88.1 wBZbtqdn37.0-99.0The [facility] Hospitalment on above:Performed By: #### VITAD, FETIBC, FERR #### [facility] [address] [place] [address] Dr. Andrey HargrovePLT198 103/guIimrmf207-951Lwp [facility] CenterComment on above: Performed By: #### VITAD, FETIBC, FERR #### [facility] [address] [place] [address] Dr. Andrey HargroveRBC3.60 106/ulCritically low4.20-5.40The [facility] CenterComment on above:Performed By: #### VITAD, FETIBC, FERR #### [facility] [address] [place] [address] Dr. Andrey HargroveWBC8.5 103/ulNormal4.0-11.0The [facility] CenterComment on above: Performed By: #### VITAD, FETIBC, FERR #### [facility] [address] [place] [address] Dr. Andrey Mason AND TIBCon 01-17-2022% JFXJOHANEK32.8 %NormalThe [facility] CenterComment on above:Performed By: #### VITAD, FETIBC, FERR #### [facility] [address] [place] [address] Dr. Andrey Mason [Mass/Vol]47.0 ug/dLCritically low50.0-170.0The [facility] CenterComment on above:Performed By: #### VITAD, FETIBC, FERR #### [facility] [address] [place] [address] Dr. Andrey Zhou JFEMRJ721.0 ug/iTXflkrx025.0-450.0The [facility] Comment on above:Performed By: #### VITAD, FETIBC, FERR #### [facility] [address] [place] [address] Dr. Andrey ValenzuelaESIUMon 61-46-2784Rruzgyagx [Mass/Vol]2.0 mg/dLNormal1.8-2.4 The [facility] CenterComment on above:Performed By: #### VITAD, FETIBC, FERR #### [facility] [address] [place], [place] [address] Dr. Andrey Adan FUNCTION PANELon 10-04-9907Izihgfe [Mass/Vol]3.3 g/dL Critically low3.4-5.0The [facility] CenterComment on above:Performed By: #### VITAD, FETIBC, FERR #### [facility] [address] [place] [address] Dr. Andrey HargroveCalcium [Mass/Vol]9.1 mg/dLNormal8.5-10.1The [facility] Comment on above:Performed By: #### VITAD, FETIBC, FERR #### [facility] [address] [place] [address] Dr. Adnrey HargroveChloride [Moles/Vol]104 mmol/MSjaori83-600OpbOhiohealth [facility] Hospital Comment on above:Performed By: #### VITAD, FETIBC, FERR #### [facility] [address] [place] [address] Dr. Andrey HargroveCO2 [Moles/Vol]27.6 mmol/EFmloid23.0-32.0[facility] Comment on above:Performed By: #### VITAD, FETIBC, FERR #### [facility] [address] [place] [address] Dr. Andrey HargroveCreatinine [Mass/Vol]1.71 mg/dLCritically high0.55-1.02[facility] HospitalComment on above:Performed By: #### VITAD, FETIBC, FERR #### [facility] [address] [place] [address] Dr. Andrey WilkinsonGFR-AF HTBPLZOS00 mL/min/1.11i6Bzqritcwwk low>=60The [facility] CenterComment on above:Performed By: #### VITAD, FETIBC, FERR #### [facility] [address] [place] [address] Dr. Andrey WilkinsonGFR-NON AF EQTLNSCL29 mL/min/1.27p1Biqmhcywpb low>=60The [facility] CenterComment on above:Performed By: #### VITAD, FETIBC, FERR #### [facility] [address] [address] [address] Andrey HargroveGlucose [Mass/Vol]115 mg/dLCritically iosv97-808Iof [facility] CenterComment on above:Performed By: #### VITAD, FETIBC, FERR #### [facility] [address] [address] [address] Andrey HargrovePhosphate [Mass/Vol]4.3 mg/dLNormal2.6-4.7The [facility] Comment on above:Performed By: #### VITAD, FETIBC, FERR #### [facility] [address] [address] [address] Andrey HargrovePotassium [Moles/Vol]3.9 mmol/LNormal3.5-5.1[facility] Comment on above:Performed By: #### VITAD, FETIBC, FERR #### [facility] [address] [place] [address] Dr. Andrey Menchacadium [Moles/Vol]139 mmol/ZHxdgvu852-331XorOhiohealth Dublin Methodist Hospital Comment on above:Performed By: #### VITAD, FETIBC, FERR #### [facility] [address] [address] [address] Andrey HargroveUrea nitrogen [Mass/Vol]38.0 mg/dLCritically high7.0-18.0The [facility] Hospitalment on above:Performed By: #### VITAD, FETIBC, FERR #### [facility] [address] [place] [address] Dr. Andrey Link RANDOM W/MICROSCOPICon 31-96-7283UHIHZOLYFZLD SEENNormalNONE SEENOhiohealth Dublin Methodist HospitalComment on above:Performed By: #### LIPID, TSH, FT3 #### [facility] [address] [place] [address] Dr. Andrey Godfrey Ql (U)NegativeNormalNEGATIVEOhiohealth Dublin [facility] Hospital Comment on above:Performed By: #### LIPID, TSH, FT3 #### [facility] [address] [place] [address] Dr. Andrey HargroveCASTSEENAbnormalNONE SEENThe [facility] Hospitalment on above: Performed By: #### LIPID, TSH, FT3 #### [facility] [address] [address] [address] Andrey Bacaarity ()CLEARNormalCLEAROhiohealth Dublin Methodist HospitalComment on above: Performed By: #### LIPID, TSH, FT3 #### [facility] [address] [address] [address] Andrey Cervantes (U)LT. YELLOWNormalYELLOWOhiohealth Dublin Methodist HospitalCommymichigan medical center clare on above:Performed By: #### LIPID, TSH, FT3 #### [facility] [address] [address] [address] Andrey HargroveCrystals LM Nom (Urine sed)NONE SEENNormalNONE SEENUC Medical Centerment on above:Performed By: #### LIPID, TSH, FT3 #### [facility] [address] [address] [address] Balderas ChangEpithelial cells LM Ql (Urine sed)FEWAbnormalNONE SEEN /RARESelect Medical [facility] on above:Performed By: #### LIPID, TSH, FT3 #### [facility] [address] [address] [address] Andrey Crandallose Ql (U)NegativeNormalNEGATIVESelect Medical [facility]ty [facility] on above:Performed By: #### LIPID, TSH, FT3 #### [facility] [address] [address] [address] Andrey HargroveHemoglobin Ql (U)NegativeNormalNEGATIVESelect Medical [facility] on above:Performed By: #### LIPID, TSH, FT3 #### [facility] [address] [address] [address] Andrey HargroveHYALINE CASTRARENormalSelect Medical Specialty [facility] on above: Performed By: #### LIPID, TSH, FT3 #### [facility] [address] [address] [address] Andrey HargroveKetones Ql (U)NegativeNormalNEGATIVESelect Medical [facility] on above:Performed By: #### LIPID, TSH, FT3 #### [facility] [address] [address] [address] Andrey SouzaOCYTESTRACEAbnormalNEGATIVEThe [facility] Medical CenterComment on above:Performed By: #### LIPID, TSH, FT3 #### [facility] [address] [address] [address] Andrey HargroveMUCOUSNONKaterin SEENNormalNONE SEENThe [facility] CenterComment on above:Performed By: #### LIPID, TSH, FT3 #### [facility] [address] [address] [address] Andrey Bernal Ql (U)NegativeNormalNEGATIVEThe [facility] CenterComment on above:Performed By: #### LIPID, TSH, FT3 #### [facility] [address] [place] [address] Dr. Andrey HargrovepH (U)5.0 [pH]Normal5-9The [facility] CenterComment on above: Performed By: #### LIPID, TSH, FT3 #### [facility] [address] [place] [address] Dr. Andrey HargroveNurtyLGY6-0Weiydi7-8[facility] on above:Performed By: #### LIPID, TSH, FT3 #### [facility] [address] [place] [address] Dr. Andrey HargroveSPEC GRAVITY1.589Bxyvdl5.005-<=1.025The [facility] CenterComment on above:Performed By: #### LIPID, TSH, FT3 #### [facility] [address] [place] [address] Dr. Andrey HargroveUA PROTEINNegativeNormalNEGATIVE/ TRACEThe [facility] Comment on above:Performed By: #### LIPID, TSH, FT3 #### [facility] [address] [place] [address] Dr. Andrey Maldonado Qn (U)0.2 {Kelly'U}/dLNormal0.2 - 1.0The [facility] Medical CenterComment on above:Performed By: #### LIPID, TSH, FT3 #### [facility] [address] [place] [address] Dr. Andrey HargroveWBC2-5AbnormalNONE SEENOhiohealth Dublin Methodist HospitalComment on above: Performed By: #### LIPID, TSH, FT3 #### [facility] [address] [place] [address] Dr. Andrey HargroveURIC ACID SERUMon 99-22-5682Kntyt [Mass/Vol]5.4 mg/dLNormal 2.6-6.0The [facility] CenterComment on above:Performed By: #### VITAD, FETIBC, FERR #### [facility] [address] [place] [address] Dr. Andrey Sanchez T PROTEIN CREAT RATIOon 99-64-7397Kyhbgaq (U) [Mass/Vol] 15.3 mg/dLCritically high<=12.0The [facility] CenterComment on above:Performed By: #### VITAD, FETIBC, FERR #### [facility] [address] [place] [address] Dr. Andrey Fox PROT CREAT RAT0.36NoCoshocton Regional Medical CenterComment on above: Performed By: #### VITAD, FETIBC, FERR #### [facility] [address] [place] [address] Dr. Andrey Sanchez CREAT42.16 mg/aXIemmzh75.00-300.00[facility] Comment on above:Performed By: #### VITAD, FETIBC, FERR #### [facility] [address] [place] [address] Dr. Andrey HargroveVITAMIN D 25 OHon 62-25-0035LBC D 25-OH73.8 ng/mLNormalThe [facility] CenterComment on above:Performed By: #### VITAD, FETIBC, FERR #### [facility] [address] [place] [address] Dr. Andrey Blake RANGESSEE BELOWNoCoshocton Regional Medical CenterComment on above: Result Comment: <20 ng/mL Vit D deficient 20 - <30 ng/mL Vit D insufficient 30 - 100 ng/mL Vit D sufficient >100 ng/mL Potential ToxicityPerformed By: #### VITAD, FETIBC, FERR #### [facility] [address] [place] [address] Dr. Andrey ChinF CHEM 8 (BAS METB)on 33-93-9578Hkgxm gap [Moles/Vol]13.3 mmol/LNormalThe [facility] CenterComment on above:Performed By: #### VITAD, FETIBC, FERR #### [facility] [address] [place] [address] Dr. Andrey HargroveCalcium [Mass/Vol]9.5 mg/dLNormal8.5-10.1The [facility] Comment on above:Performed By: #### VITAD, FETIBC, FERR #### [facility] [address] [place] [address] Dr. Andrey HargroveChloride [Moles/Vol]98 mmol/LDlizyh78-621Ioy [facility] Comment on above:Performed By: #### VITAD, FETIBC, FERR #### [facility] [address] [place] [address] Dr. Andrey HargroveCO2 [Moles/Vol]25.7 mmol/PSdckhu13.0-32.0The [facility] Comment on above:Performed By: #### VITAD, FETIBC, FERR #### [facility] [address] [place] [address] Dr. Andrey HargroveCreatinine [Mass/Vol]2.92 mg/dLCritically high0.55-1.02The [facility] CenterComment on above:Performed By: #### VITAD, FETIBC, FERR #### [facility] [address] [place] [address] Dr. Andrey WilkinsonGFR-AF VPPRZDPQ42 mL/min/1.88u9Igxrjoyerx low>=60The [facility] CenterComment on above:Performed By: #### VITAD, FETIBC, FERR #### [facility] [address] [place] [address] Dr. Andrey WilkinsonGFR-NON AF JKRXIGQT52 mL/min/1.13c8Mkymlvhoip low>=60The [facility] CenterComment on above:Performed By: #### VITAD, FETIBC, FERR #### [facility] [address] [address] [address] Andrey HargroveGlucose [Mass/Vol]156 mg/dLCritically lhmz89-526Ioc [facility] CenterComment on above:Performed By: #### VITAD, FETIBC, FERR #### [facility] [address] [address] [address] Andrey HargrovePotassium [Moles/Vol]5.0 mmol/LNormal3.5-5.1The [facility] Comment on above:Performed By: #### VITAD, FETIBC, FERR #### [facility] [address] [place] [address] Dr. Andrey HargroveSodium [Moles/Vol]132 mmol/LCritically ggd127-338Cdk [facility] CenterComment on above:Performed By: #### VITAD, FETIBC, FERR #### [facility] [address] [place] [address] Dr. Andrey HargroveUrea nitrogen [Mass/Vol]77.0 mg/dLCritically high7.0-18.0The [facility] CenterComment on above:Result Comment: CALLED TO FRANCIS JUNG RMA Performed By: #### VITAD, FETIBC, FERR #### [facility] [address] [place] [address] Dr. Andrey HargroveUrea nitrogen/Creatinine [Mass ratio]26.4 mg/mgNormalThe [facility] CenterComment on above:Performed By: #### VITAD, FETIBC, FERR #### [facility] [address] [place] [address] Dr. Andrey HargroveCardiovascular Lab Reporton 86-18-9877Lpchsmrwemgctz Lab Report [facility] Patient Name: Claudia Estrella [facility] MR #: [id number] Physician: Karthik Calvo of [facility] Date: 12/09/2021 Division of Birthdate: 1950 Cardiology Room #: CC Adult Cardiovascular Services [facility] [address] [place], [place] [address] Cardiovascular Laboratory Report INDICATION: The patient is [...] signed informed consent. 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 The right neck area was prepped and draped in usual fashion. Micropuncture technique and ultrasound guidance were used for access in the right internal jugular vein. A 5-Venezuelan x 11 cm sheath was placed. A 5-Venezuelan Dumont catheter was used for right heart [...] Fish M.D. Date Trans: 12/09/2021 11:37 P/mmo DN_JN:[id number] cc: John Perdomo D.O. [address] [id number] [place] [facility] COMPLETE BLOOD COUNTon 94-52-4529Kjxpsevtgjf distribution width (RBC) [Ratio]13.6 %Normal 11.5-15.0The [facility] HospitalComment on above:Performed By: #### [id number] #### [facility] [address] [facility] [address], [facility] HOSPITALHematocrit (Bld) [Volume fraction]35.6 %Low36.0-45.0The [facility] HospitalComment on above:Performed By: #### [id number] #### [facility] [address] [facility] [place] [address], USAHemoglobin (Bld) [Mass/Vol]11.8 g/dLLow12.0-15.0The [facility] HospitalComment on above:Performed By: #### [id number] #### [facility] [address] [facility] [place] [address], USAMCH (RBC) [Entitic mass]28.6 whNtnwyy12.0-33.0The [facility] HospitalComment on above:Performed By: #### [id number] #### [facility] [address] [facility] [place] [address], USAMCHC (RBC) [Mass/Vol]33.1 g/bMAowlkl22.0-35.0The [facility] HospitalComment on above:Performed By: #### [id number] #### [facility] [address] [facility] [place] [address], [facility]OL[facility] HOSPITALMCV (RBC) [Entitic vol]86.2 mIWshhbw25.0-98.0The [facility] HospitalComment on above:Performed By: #### [id number] #### [facility] [address] [facility] [address], USANucleated RBC/100 WBC (Bld) [Ratio]0 %Normal0-0The [facility] HospitalComment on above:Performed By: #### [id number] #### [facility] [address] [facility] [address], USAPLAT BOZ604 10*3/zIIsyjto996-255Cur [facility] HospitalComment on above:Performed By: #### [id number] #### [facility] [address] [facility] [address], [facility] ESPAÑOLA HOSPITALRBC (Bld) [#/Vol]4.13 10*6/uLNormal3.80-5.00The [facility] HospitalComment on above:Performed By: #### [id number] #### [facility] [address] [facility] [address], USAWBC (Bld) [#/Vol]14.13 10*3/uLHigh4.00-10.60The [facility] HospitalComment on above:Performed By: #### 35381 #### [facility] [address] [facility] [address], USACovid-19 PCR (CVDTBH)on 34-04-7984QCKT-CoV-2 (COVID-19) RNA JAYASHREE+probe Ql (Unsp spec)Not detectedNormalNOT DETECTEDThe [facility] Comment on above:Result Comment: This test is not yet approved or cleared by the [place] FDA. When there are no FDA-approved or cleared tests available, and other criteria are met, FDA can make tests available under an emergency access mechanism called an Emergency Use Authorization (EUA). The EUA for this test is supported by the [place] of Health and Human Service's (HHS's) declaration [...] SARS-CoV-2.Performed By: #### VITAD, FETIBC, FERR #### [facility] [address] [place] [address] Dr. Balderas ChangECHOCARDIO M/2D COMPLETEon 10-79-7450RMYZWBQFYR M/2D COMPLETE Patient: CLAUDIA ESTRELLA Exam Date: 12/06/2021 : 1950 Gender:F Ordering : KWAN ROSALES Admission #: [id number] Family : DR JOHN PERDOMO D.OSwati Order #: [id number] CLICK HERE TO VIEW EXAM ECHOCARDIOGRAM REPORT [...] Area(A4C): 14.80 cm2 Left Atrium Systolic Volume(A2C): 36495 mm3 Left Atrium Systolic Volume(A4C): 16099 mm3 Mitral Valve MV E to A [...] by: Karthik Fish M.D. on 12/06/2021 at 17:31[facility] City HospitalBNPon 55-05-4645Vxbdstacdug peptide B (Bld) [Mass/Vol]5127.0 pg/mL Critically high<=900.0The [facility] Medical CenterComment on above:Performed By: #### VITAD, FETIBC, FERR #### [facility] [address] [place] [address] Dr. Andrey HargrovePROF CHEM 8 (BAS METB)on 11-02-5036Azyfd gap [Moles/Vol]13.9 mmol/LNormalThe [facility] CenterComment on above:Performed By: #### VITAD, FETIBC, FERR #### [facility] [address] [place] [address] Dr. Andrey HargroveCalcium [Mass/Vol]9.4 mg/dLNormal8.5-10.1[facility] Comment on above:Performed By: #### VITAD, FETIBC, FERR #### [facility] [address] [place] [address] Dr. Andrey HargroveChloride [Moles/Vol]99 mmol/QCzlege61-283Rzs [facility] Comment on above:Performed By: #### VITAD, FETIBC, FERR #### [facility] [address] [place] [address] Dr. Andrey HargroveCO2 [Moles/Vol]28.4 mmol/YUrctxn33.0-32.0The [facility] Comment on above:Performed By: #### VITAD, FETIBC, FERR #### [facility] [address] [place] [address] Dr. Andrey HargroveCreatinine [Mass/Vol]2.11 mg/dLCritically high0.55-1.02The [facility] CenterComment on above:Performed By: #### VITAD, FETIBC, FERR #### [facility] [address] [place] [address] Dr. Andrey WilkinsonGFR-AF GNKMFWTD83 mL/min/1.46i8Vjfvptippt low>=60The [facility] CenterComment on above:Performed By: #### VITAD, FETIBC, FERR #### [facility] [address] [place] [address] Dr. Balderas ChangEGFR-NON AF PXAPXCID95 mL/min/1.69j4Nnsqcvnyuz low>=60The [facility] CenterComment on above:Performed By: #### VITAD, FETIBC, FERR #### [facility] [address] [place] [address] Dr. Andrey HargroveGlucose [Mass/Vol]179 mg/dLCritically ceyk49-395Sga [facility] CenterComment on above:Performed By: #### VITAD, FETIBC, FERR #### [facility] [address] [place] [address] Dr. Andrey HargrovePotassium [Moles/Vol]4.3 mmol/LNormal3.5-5.1[facility] Comment on above:Performed By: #### VITAD, FETIBC, FERR #### [facility] [address] [place] [address] Dr. Andrey HargroveSodium [Moles/Vol]137 mmol/AQthizz915-414ZnrOhiohealth Dublin Methodist Hospital Comment on above:Performed By: #### VITAD, FETIBC, FERR #### [facility] [address] [place] [address] Dr. Andrey HargroveUrea nitrogen [Mass/Vol]62.0 mg/dLCritically high7.0-18.0The [facility] CenterComment on above:Performed By: #### VITAD, FETIBC, FERR #### [facility] [address] [place] [address] Dr. Andrey Mccarty nitrogen/Creatinine [Mass ratio]29.4 mg/mgNormalThe [facility] CenterComment on above:Performed By: #### VITAD, FETIBC, FERR #### [facility] [address] [place] [address] Dr. Andrey Monge 21-53-0502Bliufajdubj peptide B (Bld) [Mass/Vol]4773.0 pg/mLCritically high<=900.0The [facility] CenterComment on above:Performed By: #### VITAD, FETIBC, FERR #### [facility] [address] [place] [address] Dr. Andrey HargrovePROF CHEM 8 (BAS METB)on 55-31-9803Lbvbl gap [Moles/Vol]11.3 mmol/LNormalThe [facility] CenterComment on above:Performed By: #### VITAD, FETIBC, FERR #### [facility] [address] [place] [address] Dr. Andrey HargroveCalcium [Mass/Vol]8.9 mg/dLNormal8.5-10.1[facility] Comment on above:Performed By: #### VITAD, FETIBC, FERR #### [facility] [address] [place] [address] Dr. Andrey HargroveChloride [Moles/Vol]100 mmol/LEreidk11-498Czb [facility] Comment on above:Performed By: #### VITAD, FETIBC, FERR #### [facility] [address] [place] [address] Dr. Andrey HargroveCO2 [Moles/Vol]30.9 mmol/HQppucg40.0-32.0[facility] Comment on above:Performed By: #### VITAD, FETIBC, FERR #### [facility] [address] [place] [address] Dr. Andrey HargroveCreatinine [Mass/Vol]2.01 mg/dLCritically high0.55-1.02The [facility] CenterComment on above:Performed By: #### VITAD, FETIBC, FERR #### [facility] [address] [place] [address] Dr. Andrey WilkinsonGFR-AF EAFQYWDQ81 mL/min/1.48j7Fyhyvqeium low>=60The [facility] CenterComment on above:Performed By: #### VITAD, FETIBC, FERR #### [facility] [address] [address] [address] Andrey WilkinsonGFR-NON AF EYSSMAFM11 mL/min/1.03v5Sgasskhjnx low>=60The [facility] CenterComment on above:Performed By: #### VITAD, FETIBC, FERR #### [facility] [address] [address] [address] Andrey HargroveGlucose [Mass/Vol]81 mg/cAOgkmtb39-187Reb [facility] Comment on above:Performed By: #### VITAD, FETIBC, FERR #### [facility] [address] [address] [address] Andrey HargrovePotassium [Moles/Vol]3.2 mmol/LCritically low3.5-5.1[facility] HospitalComment on above:Performed By: #### VITAD, FETIBC, FERR #### [facility] [address] [address] [address] Andrey HargroveSodium [Moles/Vol]139 mmol/XEjhsft898-296Qkd [facility] Comment on above:Performed By: #### VITAD, FETIBC, FERR #### [facility] [address] [address] [address] Andrey HargroveUrea nitrogen [Mass/Vol]51.0 mg/dLCritically high7.0-18.0[facility] HospitalComment on above:Performed By: #### VITAD, FETIBC, FERR #### [facility] [address] [place] [address] Dr. Andrey Mccarty nitrogen/Creatinine [Mass ratio]25.4 mg/mgNormalThe [facility] CenterComment on above:Performed By: #### VITAD, FETIBC, FERR #### [facility] [address] [place] [address] Dr. Andrey CeeD-19 Antigenon 95-39-1915EAXWR- AntigenHealthcare Worker?: Georgi Ignacio Reference Kenny Reference [...] its performance Kenny Disclaimer characteristic determined by [employer] and Kenny Disclaimer validated at [facility]. This Kenny Disclaimer test has not [...] is terminated or revoked sooner. PERFORMED BY: [place] [address] PATHOLOGIST OCCUPATIONAL THERAPIST'S ASSISTANT JAMAL ALLEN M.D.NormalPike Community HospitalComment on above: Performed By: #### SOFIAPOS, COVID-19 KENNY #### [address] [address] [place]ASofia Ag Positiveon 74-36-0979Yfezj Ag PositivePositive Critically abnormalNegativePike Community HospitalComment on above: Result Comment: This is a duplicate Kenny SARS Antigen (JOSE RAMON) result to be used for statistical tracking purpose only. PERFORMED BY: [place] [address] PATHOLOGIST OCCUPATIONAL THERAPIST'S ASSISTANT JAMAL ALLEN M.D.Performed By: #### SOFIAPOS, COVID-19 KENNY #### [address] [address] USACoding Summary.on 11-45-2373Kgkjcm Summary. CD:[id number]:[id number]+PGhlYWQ+PK5RAQCdO78uiMNpbH2UP9dTPN8TYNGEYGMSTC2PDO8ut FJ6YIraJ5IxviOw [file] bGxh (more content not included)...[facility] HospitalConsent for Procedure/Surgeryon 58-39-8972Pmhdyfz for Procedure/Surgery [id number]#1.00CD:127NormalBarberton Citizens HospitalFormson [id number]#1.00CD:127 [facility] HospitalLab Reportson 56-99-3171Rkb Reports [id number]#1.00CD:127[facility] HospitalPhysician Referralon 59-54-7781Ycfswcjwk Referral [id number]#1.00CD:127[facility] HospitalRAD - MISCon 21-68-3587KLW - MISC [id number]#1.00CD:[address] [place], [place] [address]RAD - Ultrasound Reporton 27-63-9155JZG - Ultrasound Report [id number]#1.00CD:127[facility] HospitalAmbulatory Clinical Summaryon 38-06-9295Djantuerii Clinical Summary {00-92-42-g2-11-jy-5a-22-o0-65-h7-08-52-c3-f8-10}CD:[id number] [facility] District Memorial HospitalPatient Educationon 15-73-0686Licxurd EducationUrology Hematuria, Adult Hematuria is blood in [...] these instructions at home: Medicines ? Take wrmy-cgp-itaqeqj and prescription medicines only as told by [...] the blood stops without treatment. ? Take igfn-rec-rkkykmc and prescription medicines only as told by your health care provider. ? Drink enough fluid to keep your urine clear or pale yellow. This information is not intended to replace advice given to you by your health care provider. Make sure you discuss any questions you have with your health care provider. Document Released: 06/19/2006 Document Revised: 11/13/2019 Document Reviewed: 07/22/2017 [employer] Patient Education ? 2019 [employer].[facility] Urology Office/Clinic Noteon 82-27-1663Iucpfhw Office/Clinic NoteChief Complaint Cysto/UD HPI Staff Cysto/UD [...] The Urethra was dilated to: _18- 30 Venezuelan with sounds. Specimens Removed: None Removal: Cystoscope [...] [facility] [address], [place] [phone] Additional Instructions: f/u PRN Patient Education Hematuria, [...] 50,000 intl units (1.25 mg) oral capsule, [address] International_Unit= 1 cap(s), Monday Zioptan 0.0015% ophthalmic [...] positive culture.[facility] HospitalC Urineon 93-05-3314Flphuqla identified Cx Nom (U)Microbiology PROCEDURE: Urine Culture [...] Locations R1: This test was performed at: [facility], [address] [place] [address], [address] , [place], GdrersVvtbbiJoint Township District Memorial HospitalComment on above:Performed By: #### [id number] ####[facility] [address] [place], [place] [address]Rdbmbboldx Clinical Summaryon 86-88-9013Pgpzrmzqpg Clinical Summary {83-27-0p-p9-32-wx-42-n3-2w-8f-b1-sr-d3-6c-b8-cc}CD:[id number] Township District Memorial HospitalAmbulatory Clinical Summary {62-3a-hs-95-34-43-9c-1p-id-18-1h-2n-8d-13-29-0f}CD:995782FrhayuZckdltJoint Township District Memorial HospitalAmbulatory Clinical Summary {6q-8h-2v-56-7x-6s-77-5y-50-19-24-1q-2b-c5-e6-1f}CD:902774SbvbpuVxjrtvJoint Township District Memorial HospitalPatient Educationon 65-79-3012Rlraatt EducationUrology Hematuria, Adult Hematuria is blood in [...] these instructions at home: Medicines ? Take bqyo-daz-tlzxxaq and prescription medicines only as told by [...] the blood stops without treatment. ? Take fyqf-lol-uramnxu and prescription medicines only as told by your health care provider. ? Drink enough fluid to keep your urine clear or pale yellow. This information is not intended to replace advice given to you by your health care provider. Make sure you discuss any questions you have with your health care provider. Document Released: 06/19/2006 Document Revised: 11/13/2019 Document Reviewed: 07/22/2017 [employer] Patient Education ? 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 Jenkins due to Hematuria. Pt states that since the End of October she has been feeling a slight squeeze, no pain associated with this. Pt had a Renal US done at [facility]. Pt states that she has a [...] When Contact Information CHER VIGILMarcos, [address] [place] [phone] Additional Instructions: Patient Education Hematuria, Adult I, [...] Time Signed: 12/11/20 11:17 EDT\.br\Electronically Co-Signed By: Relga Pyle MA\.br\Date and Time Co-Signed: 12/11/2110:12 EDTLab Reportson 49-98-7893Ceq [id number]#1.00CD:127Normal [facility] HospitalLab Reports [id number]#1.00CD:127NoCleveland Clinic Mercy HospitalRAD - Ultrasound Reporton 94-21-6967CKK - Ultrasound Report [id number]#1.00CD:127[facility] HospitalIntraOperative Documentson 60-13-0834ItumgOcizhqfwa Documents [id number]#1.00CD:127JoselinCleveland Clinic Mercy HospitalMessage from Medicareon 18-98-9914Pekhvci from Medicare [id number]#1.00CD:127JoselinCleveland Clinic Mercy HospitalCoding Summary.on 45-17-6219Ekfjrq Summary.CODING DATE: 05/06/2020 FINAL [facility] DSCH STATUS: Home (Routine DC) PAYOR: [...] PROC APC STAT DESCRIPTION DOCTOR NAME DATE 39678 5113 J1 Arthroscopy, Vinita han DO, Michael T 05/01/2020 surgical; with meniscectomy (medial OR lateral, including any meniscal shaving) including debridement/shaving of articular cartilage (chondroplasty), same or separate compartment(s), when performed LT Left side (used to identify procedures performed on the left side of the body) 71103 Anesthesia for open or Gurmeet Aldridge Jr, [...] Revised Date Saved: 05/06/2020 11:55 [facility]NMer[facility] Insurance Correspondence Officeon 09-04-7799Wmzjwrsjs Correspondence Office [id number]#1.00CD:127[facility] HospitalMain OR Intraoperative Recordon 82-49-3347Qjvl OR Intraoperative Record IntraOp Document Type FT Summary Primary Physician: David Talamantes DO Finalized Date/Time: 05/05/20 14:09:46 Pt. Name: CLAUDIA ESTRELLA James/Sex: 1950 Female Med Rec #: [id number] Physician: David Talamantes DO Financial #: [id number] Pt. Type: O Room/Bed: [place] [address] Admit/Disch: 05/01/20 11:43:14 - 05/04/20 12:35:00 Institution: [...] Role Performed Anesthesiologist of Surgeon - Primary Beauty Therapist - Primary Record Time In 05/01/20 14:26:00 05/01/20 14:39:00 05/01/20 14:26:00 Time Out 05/01/20 15:04:00 05/01/20 15:04:00 05/01/20 15:04:00 Procedure KNEE ARTHROSCOPY(Left) KNEE ARTHROSCOPY(Left) KNEE ARTHROSCOPY(Left) Comments Last Modified By: Edgar RN, Viky Hernández RN, Viky Hernández RN, Viky Mcdonough 05/01/20 15:04:35 05/01/20 15:04:35 05/01/20 15:04:35 Entry 4 Entry 5 Entry 6 Case Attendee Maxim WU, Augusta Castro SITE DAMAGE PREVENTION TECHNICIAN, Leatha Flowers RN, CNOR, Cee Role Performed Beauty Therapist - Primary Scrub - Primary Beauty Therapist - Relief Time In 05/01/20 14:26:00 05/01/20 [...] chondroplasty Primary Procedure Yes Primary Surgeon David Talamatnes DO Start 05/01/20 14:43:00 Stop 05/01/20 15:01:00 [...] and tissue Entry 1 Skin Integrity Intact, [place], Warm, and Skin Abnormality No Dry Outcomes [...] included)... [facility] HospitalProgress Note-Physicianon 11-64-6135Erthjyiz Note-PhysicianPatient: CLAUDIA ESTRELLA Age: 70 years Sex: [...] volume (mL): 1,000, 68.3 kg, 1.64, m2 [place] 5/325 Tab: 1 tab(s), Tab, Oral, q4hr [...] Problems DM kidney disease / SNOMED CT 485143015 / Confirmed PVD (peripheral vascular disease) / SNOMED CT 0911059711 / Confirmed MMT (medial meniscus tear) / SNOMED CT 360159400 / Confirmed Resolved: Ocular herpes zoster / SNOMED CT 776832608 Resolved: HTN (hypertension) / SNOMED CT 8952618386 Canceled: Diabetes / SNOMED CT 499702186 Histories Past Medical History: No active or resolved past medical history items have been selected or recorded. Family History: No family history items have been selected or recorded. Procedure history: Right eye cataract extraction and insertion of intraocular lens (9384609475) on 11/19/2019 at 69 Years. Cataract extraction and insertion of intraocular lens (9790903997) on 11/06/2019 at 69 Years. Comments: 11/06/2019 14:13 EDT - Loreto Peralta RN Left Appendectomy (026120940). section x2 (42737420). Cholecystectomy (96463281). Anesthesia for laparoscopic procedure on lower abdomen (81098802). Cheilectomy of tarsal foot (9672790500). Social History Social & Psychosocial Habits Alcohol [...] results Radiology results ECG interpretation Condition Plan [place] [employer] Anesthesiologists (ASA) physical status classification: [...] Problems DM kidney disease / SNOMED CT 177437002 / Confirmed PVD (peripheral vascular disease) / SNOMED CT 3436165017 / Confirmed MMT (medial meniscus tear) / SNOMED CT 956324816 / Confirmed Resolved: Ocular herpes zoster / SNOMED CT 023035553 Resolved: HTN (hypertension) / SNOMED CT 3302107505 Canceled: Diabetes / SNOMED CT 438980417 Physical Examination Vital Signs 05/01/2020 16:58 EDT [...] Time Signed: 05/05/20 08:22 ESTCapillary Glucose POCon 98-23-3682Cjsmpel [Mass/Vol]149 mg/gVWwqa01-50Bnxixp[address] [place], [place] [address]Comment on above:Result Comment: Notified RN/MDPerformed By: #### [id number] #### [facility] [address], [place] [address]Evescbo [Mass/Vol]127 mg/mCTxxt70-61Sykzfa[address] Comment on above:Result Comment: Notified RN/MDPerformed By: #### [id number] #### [facility] [address], [place] [address]Clurdxx for Anesthesiaon 47-90-1367Bldmsby for Anesthesia [id number]#1.00CD:[address] [place], [place] [address]Discharge Instructionson 47-67-7224Ktggdhyrj Instructions [id number]#1.00CD:127[facility] HospitalInpatient Clinical Summaryon 38-19-7807Yiixxzzfs Clinical Summary [address] [address] Clinical Summary Person Information: Name: CLAUDIA ESTRELLA Age: 70 Years : 1950 Sex: Female PCP: JOHN PERDOMO DO Marital Status: Race: White Ethnicity: Non- or Language: Indonesian Visit Id: Visit Reason: LEFT KNEE BONE BRUISE, MEDIAL MENISCUS TEAR, EFFUSION Speciality: Acuity: Enc Type: Observation Med Service: Surgery Arrival: 05/01/2020 11:43:14 Discharge: Dispo Type: Address: [address] [place] [address] Provider Notes: Diagnosis: 1:Other chest pain; 2:Hypertension; [...] up: With: Address: When: Follow up with Health Therapist Within 1 week With: Address: When: JOHN PERDOMO [address] [place] [address] Business (1) With: Address: When: David Talamantes [address] [place] [address] Business (1) Comments: Keep scheduled appointment Patient Education Information: Post Op Patient Instructions - FT (Custom); Knee Cryocuff Patient Instructions - FT (Custom); Talamantes - Knee Arthroscopy (Custom) (CUSTOM)[facility] HospitalInpatient Patient Summaryon 35-70-5765Vcjbdkqtm Patient Summary [address] [address] Patient Discharge Instructions PERSON INFORMATION [...] up: With: Address: When: Follow up with Health Therapist Within 1 week With: Address: When: [facility] [place] [id number] Business (1) With: Address: When: David Talamantes [address] [place] [address] Business (1) Comments: Keep scheduled appointment [...] DURING YOUR HOSPITAL STAY New Medications [id number], [address] [place], [place] [id number], [phone] atorvastatin (Lipitor 20 mg Tab) 1 Tablets [...] [facility] Note - PTon 58-41-0206Gjivvryfrviwtlmmw Note - PTPT Screen performed. Pt was able to stand and ambulate throughout room without difficulty and without an AD. Pt also demos appropriate ROM to knee. Would recommend to f/u with Ortho to determine if therapy is needed in the future, but no PT needed at this timeNoCleveland Clinic Mercy HospitalIntraOperative Documentson 05-04-2020 IntraOperative [id number]#1.00CD:127 [facility] HospitalIntraOperative Documents [id number]#1.00CD:[address] [place], [place] [address]Message from Medicareon 25-23-7462Zizhbij from Medicare [id number]#1.00CD:[address] [place], [place] [address]Monitor Recordon 21-84-6100Taapvxi Record [id number]#1.00CD:[address] [place], [place] [address]itor [id number]#1.00CD:127[facility]ain HospitalMonitor Record [id number]#1.00CD:[address] [place], [place] [address]Patient Education - Texton 57-80-5304Hbsflvc Education - Text [place], [place] [facility] DISCHARGE INSTRUCTIONS: KNEE ARTHROSCOPY [...] your appointment. David Talamantes, DO [facility] [address] [place] [address] Reviewed: 10-08NoCleveland Clinic Mercy HospitalPreoperative Documentson 46-64-1631Oghbtwansqzo Documents [id number]#1.00CD:127[facility] HospitalPreoperative [id number]#1.00CD:127 [facility] HospitalPrescriptions/Work Noteson 05-04-2020 Prescriptions/Work [id number]#1.00CD:127 NormalBarberton Citizens HospitalCapillary Glucose POCon 87-09-5353Vekblhw [Mass/Vol]183 mg/cJEjsy23-80Bxbgvx[address] [place], [place] [address]Comment on above: Performed By: #### [id number] #### [facility] [address], [place] [address]Covdffn [Mass/Vol]155 mg/uYZriq46-62LnklemBarberton Citizens Hospital Comment on above:Performed By: #### [id number] #### [facility] [address], [place] [address]Dewdula [Mass/Vol]113 mg/yNAzaq11-44Cdn[address] Comment on above:Result Comment: Notified RN/MDPerformed By: #### [id number] ####[facility] [address] [place] [address] Glucose [Mass/Vol]112 mg/uXNgeg41-97DgwxqqBarberton Citizens HospitalComment on above: Performed By: #### [id number] #### [facility] [address], [place] [address]Vhgbxpe [Mass/Vol]85 mg/uSVkjacm18-32Znvqbj64 Gonzalez StreetComment on above:Result Comment: Notified RN/MDPerformed By: #### [id number] #### [facility] [address], [place] [address]Nquezfl [Mass/Vol]59 mg/sWBlbqiw47-09FnskknBarberton Citizens HospitalComment on above:Result Comment: Notified RN/MDPerformed By: #### [id number] #### [facility] [address], [place] [address]Deiveldsqiju Noteon 65-21-8368Xcvucogqbgac NoteHOSPITAL REGULATIONS: ALL Positive Important Negative Findings Shall Be Recorded. Date of 05/02/2020 Consultation: Attending David Talamantes D.O. Physician: Consulting hE Carter DO Physician: ORTHOPEDIC CONSULTATION HISTORY OF [...] left knee and elevate. Eh Carter DO [facility] Dictated: 05/02/2020 #[id number] Typed: 05/02/2020 #[id number] cc: DO David Nieto D.O.[facility] HospitalComment on above:Result Comment: Electronically Signed By: Eh Carter DO\.br\Date and Time Signed: 05/03/20 10:27 ESTMonitor Recordon 65-55-0253Elhcizl Record [id number]#1.00CD:127[facility] HospitalMonitor [id number]#1.00CD:127Normal [facility] Medical CenterOperative Reporton 37-88-1056Vctchnvbw ReportDate of Surgery: 05/01/2020 SURGEON: David Talamantes [...] The patient's condition satisfactory David Talamantes D.O. [facility] Dictated: 05/01/2020 #[id number] Typed: 05/01/2020 #[id number] cc: Randa Lanier D.O.[facility] HospitalComment on above:Result Comment: Electronically Signed By: David Talamantes DO\.br\Date and Time Signed: 05/03/20 09:22 ESTProgress Note-Physicianon 83-41-8095Cfqplohx Note-PhysicianAssessment/Plan 1. Other chest pain (R07.89: Other [...] mg/dL High (05/03/20 12:18:00) POC Device SN: [id number] (05/03/20 12:18:00) POC Username: JOSESITO BROWN (05/03/20 [...] 0.4 mg= 1 tab(s), SubLingual, q5min, PRN [place] 5/325 Tab, 1 tab(s), Oral, q4hr, PRN [...] Restasis 0.05% ophthalmic emulsion, 1 drop(s), Eye-Both, [facility] HospitalComment on above:Result Comment: Electronically Signed By: [...] mg/dL High (05/03/20 07:32:00) POC Device SN: [id number] (05/03/20 07:32:00) POC Username: POC Username (05/03/20 [...] to obtain her records from her primary bisque cleaner once 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 Continue [...] Push, q2hr, PRN L (more content not included)...NormalBarberton Citizens HospitalComment on above:Result Comment: Electronically Signed By: Eleuterio VIGIL, John Olson\.rashmi\Date and Time Signed: 05/03/20 07:45 ESTCapillary Glucose POCon 84-93-5763Mgesjag [Mass/Vol]212 mg/gUNtye48-45SfqxtzBarberton Citizens HospitalComment on above: Performed By: #### [id number] #### [facility] [address], [place] [address]Sqtrica [Mass/Vol]138 mg/rKZfgs87-89QrpqqkBarberton Citizens Hospital Comment on above:Performed By: #### [id number] #### [facility] [address] [facility], [place] [address]Gxhicjs [Mass/Vol]139 mg/mDGusw34-67HiadjrBarberton Citizens Hospital Comment on above:Performed By: #### [id number] #### [facility] [address], [place] [address]Fxqufbp [Mass/Vol]105 mg/fBMrlw75-71WzqbfpBarberton Citizens Hospital Comment on above:Performed By: #### [id number] #### [facility] [address], [place] [address]Fljgaqu [Mass/Vol]233 mg/uSQslm10-46UjzegsBarberton Citizens Hospital Comment on above:Result Comment: Notified RN/MDPerformed By: #### [id number] ####[facility] [address] [place], [place] [address]Tiywe Panelon 15-10-1515Xuypvoloohn [Mass/Vol]160 mg/fMXzbhxq332-481SjbwkyBarberton Citizens HospitalComment on above:Performed By: #### [id number] #### [facility] [address], [place] [address]Ghdgthnksmr in HDL [Mass/Vol]49 mg/dLInvalid Interpretation CodeBarberton Citizens HospitalComment on above:Result Comment: HDL > or equal to 60 mg/dL: Low cardiovascular risk HDL < 40 mg/dL : High cardiovascular riskPerformed By: #### [id number] #### [facility] [address], [place] [address]Dlnazwzaamn in LDL [Mass/Vol]98 mg/dLNormal<=129Bar[facility] Citizens HospitalComment on above:Performed By: #### [id number] #### [facility] [address], [place] [address]Niysqqwbxot in VLDL [Mass/Vol]12 mg/dLNormal7-40Bar[facility] Citizens HospitalComment on above:Performed By: #### [id number] #### [facility] [address], [place] [address]Mpbsoaoutrbw [Mass/Vol]61 mg/dLNormal<=149Barberton Citizens HospitalComment on above:Performed By: #### [id number] #### [facility] [address], [place] [address]Wlcupbo Recordon 19-79-4712Usbchsm Record [id number]#1.00CD:127NormalBarberton Citizens HospitalProgress Note-Physicianon 53-85-1844Yjhjmzmg Note-PhysicianAssessment/Plan 1. Other chest pain (R07.89: Other [...] 29.6 pg (05/01/20 18:27:00) (more content not included)...NormalBarberton Citizens HospitalComment on above: Result Comment: Electronically Signed By: JUN VIGIL, Nhung\.br\Date and Time Signed: 05/02/20 10:00 EDTTroponin 3 Hr.on 03-07-2027Bprpebfy I.cardiac [Mass/Vol]3.60 pg/mLLow10.10-27.10Bar[facility]ton Citizens HospitalComment on above: Result Comment: The 95% CI (Confidence Interval) PPV (Positive Predictive Value) for myocardial infarction in females is 38 pg/mL, in males 51 pg/mL. The results should be used in conjunction with clinical conditions of myocardial infarction. (Access High Sensitivity Troponin I Instructions For Use, [employer], January 2018)Performed By: #### [id number] #### [facility] [address], [place] [address]Kfobpyjs 6 Hr.on 42-66-7116Zicpnywi I.cardiac [Mass/Vol]3.90 pg/mLLow10.10-27.10Bar[facility]ton Citizens HospitalComment on above:Result Comment: The 95% CI (Confidence Interval) PPV (Positive Predictive Value) for myocardial infarction in females is 38 pg/mL, in males 51 pg/mL. The results should be used in conjunction with clinical conditions of myocardial infarction. (Access High Sensitivity Troponin I Instructions For Use, [employer], January 2018)Performed By: #### [id number] #### [facility] [address], [place] [address]Uxuqffbt 9 Hr.on 38-94-0129Dworolew I.cardiac [Mass/Vol]5.10 pg/mLLow10.10-27.10Bar[facility]ton Citizens HospitalComment on above:Result Comment: The 95% CI (Confidence Interval) PPV (Positive Predictive Value) for myocardial infarction in females is 38 pg/mL, in males 51 pg/mL. The results should be used in conjunction with clinical conditions of myocardial infarction. (Access High Sensitivity Troponin I Instructions For Use, [place], January 2018)Performed By: #### [id number] #### [facility] [address] [place], [place] [address]CD Carotid Duplex Bilateralon 59-47-0008KD Carotid Duplex BilateralExam Date/Time: 05/02/2020 13:21 EDT [...] 199/45 Prox ECA (cm/sec): 199/15 Vert. Antegrade YesNormalBarberton Citizens HospitalAuto Diffon 05-01-2020 Basophils/100 WBC (Bld)0.4 %Normal0.0-2.0Barberton Citizens HospitalComment on above:Order Comment: Order Added by Discern Expert.Performed By: #### [id number], [id number], 7132740, [id number] #### [facility] [address] [place] [address]Ltevfpacc/Leukocytes Auto (Bld) [Pure # fraction]0.0 E9/LNormal 0.0-0.2FSelect Medical Cleveland Clinic Rehabilitation Hospital, BeachwoodComment on above:Order Comment: Order Added by Discern Expert.Performed By: #### [id number], 76292051, 1105787, 5202157 #### [facility] [address], [place] [address]Nbqvsirhgyy/100 WBC (Bld)1.2 %Normal0.0-8.0Barberton Citizens HospitalComment on above:Order Comment: Order Added by Discern Expert.Performed By: #### 3036056, 59729957, 7917117, 3900137 #### [facility] [address], [place] [address]Dtgisldnwzl/Leukocytes Auto (Bld) [Pure # fraction]0.1 E9/L Normal0.0-0.5FSelect Medical Cleveland Clinic Rehabilitation Hospital, BeachwoodComment on above:Order Comment: Order Added by Discern Expert.Performed By: #### 4808588, 15906686, 2051962, 2806215 #### [facility] [address] [place] [address]Dlygftrbsnt/100 WBC (Bld)9.7 %Low14.0-50.0Barberton Citizens HospitalComment on above:Order Comment: Order Added by Discern Expert.Performed By: #### 4734064, 11620561, 1169622, 7691171 #### [facility] [address] [place] [address]Qihkjtqrcka/Leukocytes Auto (Bld) [Pure # fraction]1.0 E9/L Normal1.0-4.0Bar[facility]ton Citizens HospitalComment on above:Order Comment: Order Added by Discern Expert.Performed By: #### 9734526, 78068066, 2091846, 8624770 #### [facility] [address] [place] [address]Ahiimdoqi/100 WBC (Bld)4.2 %Normal4.0-14.0Barberton Citizens HospitalComment on above:Order Comment: Order Added by Discern Expert.Performed By: #### 7805754, 68072224, 9874160, 1357413 #### [facility] [address] [place] [address]Smwlqvslo/Leukocytes Auto (Bld) [Pure # fraction]0.4 E9/LNormal 0.2-1.0Bar[facility] Citizens HospitalComment on above:Order Comment: Order Added by Discern Expert.Performed By: #### 5183947, 28174871, 6427414, 7160178 #### [facility] [address] [place] [address]Ygnyvpqlllk/100 WBC (Bld)84.5 %High36.0-75.0Barberton Citizens HospitalComment on above:Order Comment: Order Added by Discern Expert. Performed By: #### 4597406, 45378680, 6652127, 8968253 #### [facility] [address] [place] [address]Urrnbmaruvk/Leukocytes Auto (Bld) [Pure # fraction]8.9 E9/LHigh 2.0-7.5FSelect Medical Cleveland Clinic Rehabilitation Hospital, BeachwoodComment on above:Order Comment: Order Added by Discern Expert.Performed By: #### [id number], 01119915, 7286828, 4488844 #### [facility] [address], [place] [address]LEMzg 39-63-7394Yzweemz [Mass/Vol]8.9 mg/dLNormal8.9-11.1FSelect Medical Cleveland Clinic Rehabilitation Hospital, BeachwoodComment on above:Performed By: #### 7442209, 85390394, 3350633, 9021605 #### [facility] [address], [place] [address]Mldhg gap [Moles/Vol]10 mmol/LNormal6-16Bar[facility]ton Citizens HospitalComment on above:Performed By: #### 5496918, 00417847, 5645158, 0994584 #### [facility] [address], [place] [address]Bsrkhgsb [Moles/Vol]103 mmol/LIwaint365-457IrttovBarberton Citizens HospitalComment on above:Performed By: #### 9406011, 22028824, 6686480, 8325383 #### [facility] [address], [place] [address]BG4 [Moles/Vol]24 mmol/AVrozwx53-20GmextrBarberton Citizens Hospital Comment on above:Performed By: #### 2502849, 13639090, 0988905, 1078307 #### [facility] [address], [place] [address]Vlkvrlkslt [Mass/Vol]1.6 mg/dLHigh0.5-1.3FSelect Medical Cleveland Clinic Rehabilitation Hospital, BeachwoodComment on above:Performed By: #### 3535119, 64838937, 6344442, 3460631 #### [facility] [address], [place] [address]Ibadctw [Mass/Vol]167 mg/wBJqiips40-693OimrbbBarberton Citizens HospitalComment on above:Result Comment: If this glucose result represents a fasting glucose, interpretation should refer tothe following reference range: 55-99 mg/dLPerformed By: #### 6430832, 89701331, 1179499, 6595399 #### [facility] [address], [place] [address]Fngqbcpip [Moles/Vol]3.9 mmol/LNormal3.5-5.3FSelect Medical Cleveland Clinic Rehabilitation Hospital, BeachwoodComment on above:Performed By: #### 8422114, 13934209, 4715644, 0373217 #### [facility] [address], [place] [address]Wrqrwl [Moles/Vol]133 mmol/FAjx705-958WkmujqBarberton Citizens HospitalComment on above:Performed By: #### 0806127, 74252952, 8267154, 5066379 #### [facility] [address], [place] [address]Ovnt nitrogen [Mass/Vol]34 mg/dLHigh5-21Barberton Citizens HospitalComment on above:Performed By: #### 3834900, 05619242, 4840482, 6940842 #### [facility] [address], [place] [address]Uuzm nitrogen/Creatinine [Mass ratio]21 No CxardHnjl10-85LmqqhyBarberton Citizens HospitalComment on above:Performed By: #### 6510527, 11484028, 0308833, 4479500 #### [facility] [address], [place] [address]LTQ w/ Auto Diffon 04-91-1103Gdnbevphhya distribution width (RBC) [Ratio]13.0 %Cfcrjb21.9-14.2FSelect Medical Cleveland Clinic Rehabilitation Hospital, BeachwoodComment on above: Performed By: #### 0652908, 70604617, 1915756, 6758270 #### [facility] [address], [place] [address]Qemywhuljx (Bld) [Volume fraction]32.4 %Low34.0-46.0Bar[facility]ton Citizens HospitalComment on above:Performed By: #### 9764323, 41168644, 1998246, 9612613 #### [facility] [address] [place] [address]Mfegtwnpps (Bld) [Mass/Vol]11.2 g/dLLow12.0-16.0Bar[facility]ton Citizens HospitalComment on above:Performed By: #### 5104656, 23540142, 3140274, 8974026 #### [facility] [address] [place] [address]OOE (RBC) [Entitic mass]29.6 itTqathw12.0-34.0Bar[facility] Citizens HospitalComment on above:Performed By: #### 3067630, 45620913, 3972893, 6053339 #### [facility] [address] [place] [address]UUHM (RBC) [Mass/Vol]34.6 g/mBPhkuve59.4-36.0Bar[facility] Citizens HospitalComment on above:Performed By: #### 7313878, 92219966, 6845387, 3326761 #### [facility] [address] [place] [address]EXO (RBC) [Entitic vol]85.5 fPBeqqsv51.0-100.0Bar[facility] Citizens HospitalComment on above:Performed By: #### 3841312, 62404545, 7408940, 0488140 #### [facility] [address] [place] [address]Bcgsbmfe mean volume (Bld) [Entitic vol]8.4 fLNormal6.4-10.8 [facility] Citizens HospitalComment on above:Performed By: #### 2247741, 29341709, 6810459, 3046798 #### [facility] [address] [place] [address]Zvzjosrke (Bld) [#/Vol]242.0 E9/WPboanh898.0-500.0Bar[facility] Citizens HospitalComment on above:Performed By: #### [id number], 05474255, 7371566, 4127738 #### [facility] [address], [place] [address]RWA (Bld) [#/Vol]3.8 E12/LLow4.3-5.9[facility] Comment on above:Performed By: #### [id number], 56705300, 0490859, 6779564 #### [facility] [address], [place] [address]ARC corrected for nucl RBC Auto (Bld) [#/Vol]10.5 E9/LNormal 4.0-11.0[facility] HospitalComment on above:Performed By: #### 2660859, 60476793, 9771101, 5568781 #### [facility] [address], [place] [address]Fheeeljih Glucose POCon 88-20-6376Zsulwhp [Mass/Vol]84 mg/dL Gfgcii33-87JnyibjBarberton Citizens HospitalComment on above:Result Comment: Repeat TestPerformed By: #### [id number] #### [facility] [address], [place] [address]Uaevqpg [Mass/Vol]88 mg/hFSzxmyl53-47FzmjhyBarberton Citizens HospitalComment on above:Result Comment: Repeat TestPerformed By: #### [id number] #### [facility] [address], [place] [address]Fxysxp Summary.on 18-68-0551Jpfywg Summary.CODING DATE: 05/01/2020 FINAL [facility] STATUS: Home (Routine DC) PAYOR: Medicare APC [...] CphT Date Saved: 05/01/2020 08:36 amNMercy Health Springfield Regional Medical CenterCoding Summary. CODING DATE: 04/25/2020 [facility] STATUS: Home (Routine DC) PAYOR: Medicare APC [...] CphT Date Saved: 04/25/2020 04:17 pmNMercy Health Springfield Regional Medical CenterConsent for Treatmenton 89-56-9640Ltkokhq for Treatment [id number]#1.00CD:127NormSt. Elizabeth HospitalConsent for [id number]#1.00CD:127 [facility] HospitalH&P Updateon 05-01-2020H&P Update [id number]#1.00CD:127NoC[facility] Clinic [facility]cy HospitalMain OR PACU I Recordon 60-31-5634Xppb OR PACU I RecordPACU Phase I Document Type FT Summary Primary Physician: David Talamantes DO Finalized Date/Time: 05/01/20 18:04:55 Pt. Name: CLAUDIA ESTRELLA/Sex: 1950 Female Med Rec #: [id number] Physician: David Talamantes DO Financial #: [id number] Pt. Type: Sharonda Room/Bed: [place] [address] Admit/Disch: 05/01/20 11:43:14 - Institution: Case Times [...] [facility] PACU II Recordon 42-48-5070Hxin OR PACU II RecordPACU Phase II Document Type FT Summary Primary Physician: David Talamantes DO Finalized Date/Time: 05/01/20 20:09:08 Pt. Name: SAMEERCLAUDIA/Sex: 1950 Female Med Rec #: [id number] Physician: David Talamantes DO Financial #: [id number] Pt. Type: O Room/Bed: 06 Admit/Disch: 05/01/20 [...] Signatures Signed By: Yessy Curran RN 05/01/20 20:09NoCleveland Clinic Mercy HospitalMain OR Preoperative Recordon 12-58-2271Ojjj OR Preoperative RecordPreOp Document Type FT Summary Primary Physician: David Talamantes DO Finalized Date/Time: 05/01/20 14:45:06 Pt. Name: CLAUDIA ESTRELLA/Sex: 1950 Female Med Rec #: [id number] Physician: David Talamantes DO Financial #: [id number] Pt. Type: A Room/Bed: [place] [address] Admit/Disch: 05/01/20 11:43:14 - Institution: Case Times [...] Signatures Signed By: Viky Hernández RN 05/01/20 14:45NoMetroHealth Main Campus Medical Centeritor Recordon 86-34-9201Sqfelgw [id number]#1.00CD:127 [facility] Record [id number]#1.00CD:127NormalTr[facility] Health System Radiologyon 41-41-1336Hwpkurz Radiology [id number]#1.00CD:127[facility] CenterOutsdecatur county general hospital Recordson 94-51-1273Mrslxst Records [id number]#1.00CD:127[facility] HospitalProgress Note-Nurseon 69-83-6996Vaasiefz Note-NurseAt 1653--Gisela poct stated she needed a nurse in [place] 12 stat. This nurse arrived to room. [...] 1829--Attempted to call Dr. Talamantes--[facility]--This nurse spoke with Dr. Carter (corporate receptionist physician), informed Dr. Carter reason for admission and patient's room number. Dr. Aldridge at bedside at 1705--Physician looked at patient EKG strip that was printed.[facility] HospitalProgress Note-Ddvgv1008: pt. medicated with 0.4mg Dilaudid per PACU [...] updated.[facility] HospitalTroponin 0 Hr.on 46-24-0792Whhhqufi I.cardiac [Mass/Vol]4.10 pg/mLLow10.10-27.10[facility] HospitalComment on above:Result Comment: The 95% CI (Confidence Interval) PPV (Positive Predictive Value) for myocardial infarction in females is 38 pg/mL, in males 51 pg/mL. The results should be used in conjunction with clinical conditions of myocardial infarction. (Access High Sensitivity Troponin I Instructions For Use, Wilfrido Jose, January 2018)Performed By: #### [id number] #### [facility] [address], [place] [address]dEAIbs 83-19-3569KJX/1.73 sq M.predicted among blacks MDRD (S/P/Bld) [Vol rate/Area]39 mL/min/1.73 m2Low>=59[facility] Comment on above:Order Comment: Order added by Discern Expert.Result Comment: eGFR is race adjusted. AA=.Performed By: #### [id number], 01209050, 5646386, 1217257 #### [facility] [address], [place] [address]IGH/1.73 sq M.predicted among non-blacks MDRD (S/P/Bld) [Vol rate/Area]32 mL/min/1.73 m2Low>=59Bar[facility] HospitalComment on above: Order Comment: Order added by Discern Expert.Result Comment: Chronic kidney disease could be indicated at eGFR's of less than 60 mL/min/1.73m2. Kidney failure is indicated at less than 15 mL/min/1.73m2.Performed By: #### [id number], 82030635, 6301149, 8331931 #### [facility] [address], [place] [address]Csoyxs Summary.on 94-26-0900Lsofle Summary.CODING DATE: 04/28/2020 FINAL [facility] STATUS: Home (Routine DC) PAYOR: [...] Gabriela Houston CphT Date Saved: 04/28/2020 09:19 amNormalBarberton Citizens HospitalOutpatient Surgery Discharge Instructionon 84-75-6687Mmdnzcqzed Surgery Discharge Instruction [address] [address] Patient Discharge Instructions PERSON INFORMATION Name: CLAUDIA [...] Follow up: With: Address: When: David Talamantes [address] [place] [address] Business (1) Comments: Keep scheduled appointment Type Location Start Finish State Surgery [facility] Surgical Services 05/01/2020 2:15 PM 05/01/2020 2:55 PM Confirmed Pharmacy Information: Thank you for choosing [facility] HERE ARE THE MEDICATION CHANGES THAT OCCURRED [...] tab Oral Daily. PATIENT EDUCATION INFORMATION Instructions: [place], [place] [facility] DISCHARGE INSTRUCTIONS: KNEE ARTHROSCOPY [...] included)...[facility] HospitalConsent for Procedure/Surgeryon 48-42-4053Einvhqv for Procedure/[id number]#1.00CD:127Normal [facility] HospitalOutside Recordson 68-97-6724Rlqqqwm Records [id number]#1.00CD:127[facility] HospitalPriority Order-Trina 97-85-8429Tkvndugs Order-STATCommentInvalid Interpretation CodeBarberton Citizens HospitalComment on above:Result Comment: Received Performed at: [facility] [address] [facility] [place] [id number] MD Garrison AnaghPerformed By: #### [id number] #### [facility] [address], [place] [address]JWKF-UiC-5, NAAon 78-39-4551QXWP-CoV-2 (COVID-19) RNA JAYASHREE+probe Ql (Resp)Not detectedInvalid Interpretation CodeNot DetectedBarberton Citizens HospitalComment on above:Result Comment: This nucleic acid amplification test was developed and its performance characteristics determined by [employer]. Nucleic acid amplification tests include PCR and [...] detected) result in this assay. Performed at: [facility] [address] [facility] [place] [id number] MD Garrison AnaghPerformed By: #### [id number] #### [facility] [address], [place] [address]LE Chest 2 Viewson 27-14-0033XI Chest 2 ViewsExam Date/Time: 04/24/2020 09:34 EDT [...] Matias George M.D. Transcribed by: LUDIN Technologist: RRBNormalBarberton Citizens HospitalBUNon 81-95-6975Rsyb nitrogen [Mass/Vol]36 mg/dLHigh5-21[facility] Comment on above:Performed By: #### 19782712, 5955213, 3509846, 6422004, 5652781, 6063311 ####[address] [place], [place] [address]WHO w/Indiceson 33-40-3083Suwomwipxpq distribution width (RBC) [Ratio]13.0 %Pbkwxr90.9-14.2FSelect Medical Cleveland Clinic Rehabilitation Hospital, BeachwoodComment on above: Performed By: #### 55979453, 8260628, 6522458, 3038870, 7892673, 6995007 ####[address] [address] Hematocrit (Bld) [Volume fraction]34.1 %Fjdutf43.0-46.0[facility] HospitalComment on above:Performed By: #### 89258733, 3891903, 1546440, 9113199, 9798247, 8680908 ####[facility] [address] [place] [address]Dqlmttguun (Bld) [Mass/Vol]11.6 g/dLLow12.0-16.0[facility] HospitalComment on above:Performed By: #### 19008642, 5548010, 8708318, 6096440, 3404728, 5770373 ####[address] [address]ZLN (RBC) [Entitic mass]29.5 ymLwsjxo06.0-34.0[facility] HospitalComment on above:Performed By: #### 16807185, 3410313, 6063760, 0218615, 5340404, 5795582 ####[facility] [address] [place], [place] [address]CJQX (RBC) [Mass/Vol]34.1 g/hHUemgbt73.4-36.0[facility] HospitalComment on above:Performed By: #### 91880775, 2895515, 5989452, 6769869, 4699722, 2145120 ####[address] [address]ECH (RBC) [Entitic vol]86.5 pHRvbgjh39.0-100.0[facility] HospitalComment on above:Performed By: #### 45770206, 1206237, 8764588, 4101831, 8718659, 0466628 ####[address] [address]Zugnuvkm mean volume (Bld) [Entitic vol]9.4 fLNormal6.4-10.8 [facility] HospitalComment on above:Performed By: #### 58990448, 8340452, 1950889, 2682317, 6334484, 0765573 ####[address] [address]Ovsvyuqxa (Bld) [#/Vol]246.0 E9/L Unvfky884.0-500.0[facility] HospitalComment on above:Performed By: #### 74243231, 1365303, 5353641, 5143127, 8980792, 7310914 ####[address] [address]VDZ (Bld) [#/Vol]3.9 E12/LLow 4.3-5.9[facility] HospitalComment on above:Performed By: #### 52166135, 7215332, 1055706, 5606782, 4099246, 8847819 ####[address] [address]HVN corrected for nucl RBC Auto (Bld) [#/Vol]10.0 E9/LNormal4.0-11.0[facility] HospitalComment on above: Performed By: #### 22688139, 4690438, 0159416, 9741478, 9228257, 3230622 ####[address] [address] Consent for Treatmenton 86-98-3492Bccwhot for Treatment [id number]#1.00CD:127NormalBarberton Citizens HospitalCreatinineon 07-67-6403Tehqhxmwjw [Mass/Vol]1.6 mg/dLHigh0.5-1.3FSelect Medical Cleveland Clinic Rehabilitation Hospital, BeachwoodComment on above:Performed By: #### 15970221, 5879165, 4362301, 2562942, 6809795, 4834679 ####[facility] [address] [place], [place] [address]Kmo Fastingon 74-48-3030Afanijw [Mass/Vol]81 mg/dL Zsrbfg25-92PyaamgBarberton Citizens HospitalComment on above:Performed By: #### 75930462, 4645338, 3712624, 5097760, 8315587, 7941788 ####[facility] [address] [place], [place] [address]Awinfuf 63-92-8339Nhgvu gap [Moles/Vol]13 mmol/LNormal6-16[facility] HospitalComment on above: Performed By: #### 11038296, 0167392, 7931719, 4513361, 1448474, 5078883 ####[address] [place] [address] Chloride [Moles/Vol]103 mmol/UOesvlz481-934OyxdisBarberton Citizens HospitalComment on above:Performed By: #### 71702502, 4949800, 7618639, 2345324, 3868454, 1006416 ####[facility] [address] [place], [place] [address]XG0 [Moles/Vol]26 mmol/JRtpcoa64-73YqgapkBarberton Citizens HospitalComment on above: Performed By: #### 39202259, 1103238, 8198711, 3076964, 4007605, 2383873 ####[facility] [address] [place] [address] Potassium [Moles/Vol]3.9 mmol/LNormal3.5-5.3FSelect Medical Cleveland Clinic Rehabilitation Hospital, BeachwoodComment on above:Performed By: #### 20483264, 6884204, 9288991, 9590690, 9506344, 3282890 ####[facility] [address] [place], [place] [address]Lyfrpu [Moles/Vol]138 mmol/IQouqyx598-843JhjrbiBarberton Citizens HospitalComment on above:Performed By: #### 37681812, 9889364, 1412462, 4533147, 8128800, 5253802 ####[facility] [address] [place], [place] [address]Jhyqarntb Orderon 97-62-5141Nlshrwxko Order [id number]#1.00CD:127NormalBarberton Citizens HospitaleGFRon 77-47-5268NLZ/1.73 sq M.predicted among blacks MDRD (S/P/Bld) [Vol rate/Area]39 mL/min/1.73 m2Low>=59[facility] HospitalComment on above: Order Comment: Order added by Discern Expert.Result Comment: eGFR is race adjusted. AA=.Performed By: #### 47708275, 3404287, 0422280, 0462760, 4382976, 6431196 ####[facility] [address] [place], [place] [address]QGW/1.73 sq M.predicted among non-blacks MDRD (S/P/Bld) [Vol rate/Area]32 mL/min/1.73 m2Low>=59[facility] HospitalComment on above: Order Comment: Order added by Discern Expert.Result Comment: Chronic kidney disease could be indicated at eGFR's of less than 60 mL/min/1.73m2. Kidney failure is indicated at less than 15 mL/min/1.73m2.Performed By: #### 63476224, 0304138, 9695891, 3950123, 0864788, 4945329 ####[facility] [address] [place], [place] [address]Rqgboqeuf Orderon 98-03-6021Fwbbpwanf [id number]#1.00CD:[address] [place], [place] [address]Physician Orderon 12-26-7979Svbovcmgv Order [id number]#1.00CD:[address] [place] [address] Vital Signs Date TimeVital SignValuePerforming NmulzeiluEgdwwwxe93-42-6208 11:32-0400Body .32 cmDaniel Perdomo DO Work Phone: [phone] [place], [place] [address]10-21-2025 11:32-0400 Body mass index (BMI) [Ratio]26.1 kg/k5Hwxyuu Perdomo DO Work Phone: [phone]10-21-2025 11:32-0400 Body uyieppriroa35.3 [degF]John Perdomo DO Work Phone: [phone])711-[address] [place], [place] [address]10-21-2025 11:32-0400 Body mjxito28.75 kgDaniel Pedromo DO Work Phone: [phone])776-[address] [place], [place] [address]10-21-2025 11:32-0400 Diastolic blood aciisxoo04 mm[Hg]John Perdomo DO Work Phone: [phone])363-[address] [place], [place] [address]10-21-2025 11:32-0400 Heart rate76 /minDaniel Perdomo DO Work Phone: [phone])[phone] [place], [place] [address]10-21-2025 11:32-0400 Respiratory rate18 /minDaniel Perdomo DO Work Phone: [phone])[phone] [place], [place] [address]10-21-2025 11:32-0400 SaO2% (BldA) [Mass fraction]93 %John Perdomo DO Work Phone: [phone] [place], [place] [address]10-21-2025 11:32-0400 Systolic blood axsrflrl970 mm[Hg]John Perdomo DO Work Phone: [facility]07-30-2025 11:37-0400 Body xbixwi051.32 cmDaniel Perdomo DO Work Phone: [facility]07-30-2025 11:37-0400 Body mass index (BMI) [Ratio]26.5 kg/m8Vktfyd Perdomo DO Work Phone: [facility]07-30-2025 11:37-0400 Body miwuwb30.6 kgDaniel Perdomo DO Work Phone: [phone] [place], [place] [address]07-30-2025 11:37-0400 Diastolic blood byotytqu51 mm[Hg]John Perdomo DO Work Phone: [phone] [place], [place] [address]07-30-2025 11:37-0400 Heart rate72 /minDaniel Perdomo DO Work Phone: [phone])880-[address] [place], [place] [address]07-30-2025 11:37-0400 Respiratory rate18 /minDaniel Perdomo DO Work Phone: [phone])[phone] [place], [place] [address]07-30-2025 11:37-0400 SaO2% (BldA) [Mass fraction]95 %John Perdomo DO Work Phone: [phone] [place], [place] [address]07-30-2025 11:37-0400 Systolic blood tqdzxnud254 mm[Hg]John Perdomo DO Work Phone: [facility]03-04-2025 15:36-0500 Body jsykzo642.32 cmP[facility]03-04-2025 15:36-0500Body mass index (BMI) [Ratio]25.6 kg/d4OqvtzcpnuPike Community Hospital03-04-2025 15:36-0500Body dskdbatjovv80.3 [degF][facility]03-04-2025 15:36-0500Body fzrmex28.56 kgP[facility] Hospital03-04-2025 15:36-0500Diastolic blood mnhsepzr60 mm[Hg][facility] 09-03-2024 15:36-0500Heart rate73 /[facility] 09-03-2024 15:36-0500Respiratory rate18 /minPike [facility] Hospital 09-03-2024 15:36-0089WaO4% (BldA) [Mass fraction]95 %[facility]03-04-2025 15:36-0500Systolic blood hmwlokfr404 mm[Hg][facility]11-11-2024 15:30-0500Body erjioj678.32 cmP[facility]11-11-2024 15:30-0500Body mass index (BMI) [Ratio]27.1 kg/m2 [facility]11-11-2024 15:30-0500Body epxzbbevmez27.5 [degF][facility]11-11-2024 15:30-0500Body .96 kg [facility]11-11-2024 15:30-0500Diastolic blood eatakpbm37 mm[Hg][facility]11-11-2024 15:30-0500Heart rate72 /min [facility]11-11-2024 15:30-0500Respiratory rate16 /min [facility]11-11-2024 15:30-8589DrM0% (BldA) [Mass fraction]95 %[facility]11-11-2024 15:30-0500Systolic blood zkjomsrm367 mm[Hg][facility]07-08-2024 13:03-0400 Body dxlend027.32 cmPike [facility]07-08-2024 13:03-0400Body mass index (BMI) [Ratio]26.1 kg/b8QodkfauxkPike Community Hospital07-08-2024 13:03-0400Body vvkgsgpwvou20.6 [degF][facility]07-08-2024 13:03-0400Body .75 kgP[facility]07-08-2024 13:03-0400Diastolic blood ooiutanv53 mm[Hg][facility] 01-08-2024 13:03-0400Heart rate69 /[facility] 01-08-2024 13:03-0400Respiratory rate16 /[facility] 01-08-2024 13:03-9457WjH6% (BldA) [Mass fraction]96 %[facility]07-08-2024 13:03-0400Systolic blood ngwdnglo585 mm[Hg][facility]03-25-2024 15:52-0400Body afmxyb41.74 kgPike [facility] Hospital03-25-2024 15:52-0400Diastolic blood rlyxvkhn68 mm[Hg][facility]03-25-2024 15:52-0400Heart rate65 /[facility]03-25-2024 15:52-0400Systolic blood ilfuiyyu841 mm[Hg][facility]11-28-2023 15:40-0500Body .32 cmAbdul Mary Grace Other [employer] Other 11-28-2023 15:40-0500Body mass index (BMI) [Ratio] 26.92 kg/l1Mcccd Mary Grace Other [employer] Other 11-28-2023 15:40-0500Body amhvoiwkrep62 [degF]Geneva Mary Grace Other [employer] Other 11-28-2023 15:40-0500Body .42 kgAbdul Mary Grace Other [employer] Other 11-28-2023 15:40-0500Diastolic blood fzobszhr48 mm[Hg] Geneva Mary Grace Other [employer] Other 11-28-2023 15:40-0500Respiratory rate18 /minAbdul Mary Grace Other [employer] Other 11-28-2023 15:40-6685CaX1% (BldA) [Mass fraction]97 % Geneva Mary Grace Other [employer] Other 11-28-2023 15:40-0500Systolic blood mm[Hg] Geneva Mary Grace Other [employer] Other 07-31-2023 15:40-0400Body wsgcyd460.32 cmAbdul Mary Grace Other [employer] Other 07-31-2023 15:40-0400Body mass index (BMI) [Ratio] 26.83 kg/c0Tuayz Mary Grace Other [employer] Other 07-31-2023 15:40-0400Body sbrpxhsbnko84.7 [degF]Geneva Mary Grace Other [employer] Other 07-31-2023 15:40-0400Body totmtt39.24 kgAbdul Mary Grace Other [employer] Other 07-31-2023 15:40-0400Diastolic blood gyuexoru41 mm[Hg] Geneva Mary Grace Other [employer] Other 07-31-2023 15:40-0400Respiratory rate18 /minAbdul Mary Grace Other [employer] Other 07-31-2023 15:40-2192ZbV0% (BldA) [Mass fraction]98 % Geneva Mary Grace Other [employer] Other 07-31-2023 15:40-0400Systolic blood aapbfldt734 mm[Hg] Geneva Mary Grace Other [employer] Other 02-28-2023 14:40-0500Body .32 cmAbdul Mary Grace Other [employer] Other 02-28-2023 14:40-0500Body mass index (BMI) [Ratio] 26.29 kg/g0Lcevs Mary Grace Other [employer] Other 02-28-2023 14:40-0500Body kyxluchplgc53.6 [degF]Geneva Mary Grace Other [employer] Other 02-28-2023 14:40-0500Body banjcq97.06 kgAbdul Mary Grace Other [employer] Other 02-28-2023 14:40-0500Diastolic blood niveawhq67 mm[Hg] Geneva Mary Grace Other [employer] Other 02-28-2023 14:40-0500Respiratory rate18 /minAbdul Mary Grace Other [employer] Other 02-28-2023 14:40-7013LtL9% (BldA) [Mass fraction]96 % Geneva Mary Grace Other [employer] Other 02-28-2023 14:40-0500Systolic blood tidwxetr371 mm[Hg] Geneva Mary Grace Other [employer] Other 11-28-2022 11:40-0500Body joesxf565.32 cmAbdul Mary Grace Other [employer] Other 11-28-2022 11:40-0500Body mass index (BMI) [Ratio] 27.25 kg/u7Zdwse Mary Grace Other [employer] Other 11-28-2022 11:40-0500Body .2 [degF]Geneva Mary Grace Other [employer] Other 11-28-2022 11:40-0500Body .15 kgAbdul Mary Grace Other [employer] Other 11-28-2022 11:40-0500Diastolic blood ovbwtckw22 mm[Hg] Geneva Mary Grace Other [employer] Other 11-28-2022 11:40-7897PzH6% (BldA) [Mass fraction]97 % Geneva Mary Grace Other [employer] Other 11-28-2022 11:40-0500Systolic blood ozazaceb865 mm[Hg] Geneva Mary Grace Other [employer] Other 07-28-2022 12:20-0400Body gwjjji818.32 cmAbdul Mary Grace Other [employer] Other 07-28-2022 12:20-0400Body mass index (BMI) [Ratio] 26.83 kg/a1Ndhdi Mary Grace Other [employer] Other 07-28-2022 12:20-0400Body [degF]Geneva Mary Grace Other [employer] Other 07-28-2022 12:20-0400Body bnygoc77.24 kgAbdul Mary Grace Other [employer] Other 07-28-2022 12:20-0400Diastolic blood etufutcj42 mm[Hg] Geneva Mary Grace Other [employer] Other 07-28-2022 12:20-0400Respiratory rate18 /minAbdul Mary Grace Other [employer] Other 07-28-2022 12:20-8323TrM5% (BldA) [Mass fraction]96 % Geneva Mary Grace Other [employer] Other 07-28-2022 12:20-0400Systolic blood oegnvibk552 mm[Hg] Geneva Mary Grace Other [employer] Other 03-21-2022 16:00-0400Body xambxw252.32 cmAbdul Mary Grace Other [employer] Other 03-21-2022 16:00-0400Body mass index (BMI) [Ratio] 27.42 kg/v1Vlrpb Mary Grace Other [employer] Other 03-21-2022 16:00-0400Body .6 [degF]Geneva Mary Grace Other [employer] Other 03-21-2022 16:00-0400Body .51 kgAbdul Mary Grace Other [employer] Other 03-21-2022 16:00-0400Diastolic blood vwdlbevy55 mm[Hg] Geneva Mary Grace Other [employer] Other 03-21-2022 16:00-0400Respiratory rate18 /minAbdul Mary Grace Other [employer] Other 534835-15-3994 16:00-2937QgV0% (BldA) [Mass fraction]97 % Geneva Mary Grace Other [employer] Other 359986-24-6201 16:00-0400Systolic blood pjoddcsn125 mm[Hg] Geneva Mary Grace Other [employer] Other 11-16-2021 15:40-0500Body umjegs477.32 cmAbdul Mary Grace Other [employer] Other 11-16-2021 15:40-0500Body mass index (BMI) [Ratio]26.5 kg/q5Knagz Mary Grace Other [employer] Other 11-16-2021 15:40-0500Body dtgqrrhqeyx51.2 [degF]Geneva Mary Grace Other [employer] Other 11-16-2021 15:40-0500Body xjgpya38.52 kgAbdul Mary Grace Other [employer] Other 11-16-2021 15:40-0500Diastolic blood brucukhv73 mm[Hg] Geneva Mary Grace Other [employer] Other 11-16-2021 15:40-0500Respiratory rate18 /minAbdul Mary Grace Other [employer] Other 11-16-2021 15:40-5478LmT0% (BldA) [Mass fraction]97 % Geneva Mary Grace Other [employer] Other 11-16-2021 15:40-0500Systolic blood biltyvtm056 mm[Hg] Geneva Mary Grace Other [employer] Other Encounters Encounter DateEncounter TypeCare ProviderFacilityStart: 51-00-8981Viawbalikm and management of inpatientNICHOLAS [facility] Start: 04-15-5049Zjrnahxxsy and management of inpatientNICHOLAS [facility]: 05-01-2025 End: 24-91-0113Xiexbqcvrf and management of inpatientGEORGE ANDREACleveland Clinic Hillcrest Hospitaltart: 05-01-2025 End: 61-81-6936kbprkarkihHGOXYQDCleveland Clinictart: 04-22-2025 End: 66-01-6602ozoldashvsPddnyk A Herring DO Work Phone: [phone]-Ddhnmjubc [facility] SandStart: 04-22-2025 End: 67-17-1803Erwjfzt encounter procedureGeneva Jenkins MD-[facility] Work Phone: Start: 48-52-2324Eqn-patient / Non-visitGeneva Jenkins MD -[facility] Work Phone: Start: 04-15-2025 End: 77-54-1413baglktvhnxBVDZLUICleveland Clinictart: 04-07-2025 End: 76-16-5742jrpgpsidkeDVDUYAHolmes County [facility] Start: 03-23-2025 End: 97-74-3888NrvkupObcbexxd D Zahler DO Work Phone: [facility] [place] [facility] EyeComment on above:Primary open angle glaucoma (POAG) of both eyes, mild stageStart: 01-29-2025 End: 82-97-5072hgyffuhwytQcckdh A Perdomo DO Work Phone: [facility] Work Phone: Start: 01-29-2025 End: 18-00-1645Qnnosqq encounter procedureGeneva Jenkins MD-[facility] [place] Work Phone: Start: 91-84-6654Rul-patient / Non-visitGeneva Jenkins MD -[facility] Work Phone: Start: 11-26-2024 End: 03-64-0837Bolfjb Tone Teran DO Work Phone: noms OPHTStart: 11-26-2024 End: 52-86-7573Vbncivansley Teran DO Work Phone: noms OPHTStart: 11-26-2024 End: 35-25-8652icduhpnfedJFETCDUM D ZAHLERNot AvailableStart: 09-16-2024 End: 54-40-7584arxhtcsvhqVQAENV [facility] Start: 09-03-2024 End: 73-95-7284tuufzeekueVfvooklzcSheltering Arms Hospital Work Phone: Start: 09-03-2024 End: 27-16-4594Cispveq encounter procedureFiranthony Physician [facility] [place] Work Phone: Start: 71-74-8678Oek-patient / Non-visitFiranthony Physician Group-[facility] Work Phone: Start: 05-15-2024 End: 52-54-8088Ctwykd Loreleimikelidia Hayden Renata DO Work Phone: noms NB OPHTStart: 05-15-2024 End: 39-63-6977Dyfcvk Loreleimikelidia Hayden Renata DO Work Phone: noms NB OPHTStart: 05-15-2024 End: 92-07-3383fbbgedkvmpMDLXIHKV D MARVELMEEKNot AvailableStart: 05-13-2024 End: 74-91-2052omopigiehrUmwopjalvMercy Health [facility] Work Phone: Start: 05-13-2024 End: 10-56-3498Cyosmrg [facility] [place] Work Phone: Start: 09-03-1913Ril-patient / Non-visitE[facility] Work Phone: Start: 01-08-2024 End: 24-75-6456qtdqcsxfliUikqupcbwSheltering Arms Hospital Work Phone: Start: 01-08-2024 End: 99-98-8081Ppbagmb encounter procedureE[facility] Work Phone: Start: 37-04-2176Ykp-patient / Non-visitE[facility] Work Phone: Start: 09-25-2023 End: 70-53-4470ygrbdzlyxdBptugvnpdMercy Health [facility] Work Phone: Start: 09-25-2023 End: 11-08-6632Cxunhav encounter procedureE[facility] Work Phone: Start: 09-09-2023 End: 31-87-6905Mgsuevdqf Result EncounterHilary Margareth Love MD Work Phone: noms External Department UnsolicitedStart: 09-09-2023 End: 37-36-7174Strkbhitj Result EncounterHianat Love MD Work Phone: [facility] External Department UnsolicitedStart: 08-08-2023 End: 64-16-8898stctyssbokQgilp Mary Grace Other [facility] [employer] Other Start: 19-21-6115Aheizwxrq encounterAbdul QadirFPG NephrologyStart: 07-11-2023 End: 20-81-7253lqfrwypfibSclny Mary Grace Other [employer] Other Start: 65-77-4817Kpqjadnpe encounterAbdul QadirFPG NephrologyStart: 05-30-2023 End: 21-35-4796oddztlzagcDkgei Mary Grace Other [facility] [employer] Other Start: 20-98-4659Glysze outpatient visit 25 minutes Geneva QadirFPG NephrologyStart: 05-23-2023 End: 98-93-7590xpbxmnsneiUrxzk Mary Grace Other [facility] [employer] Other Start: 82-94-7910Srgdtuadj encounterAbdul QadirFPG NephrologyStart: 01-30-2023 End: 91-56-0489jbmckaiymcLgvbo Mary Grace Other [facility] [employer] Other Start: 39-44-3585Vluijqhbo by computer linkAbdul Mary Grace FPG NephrologyStart: 04-65-0824Jrgqox outpatient visit 25 minutesAbdul QadirFPG NephrologyStart: 10-27-2022 End: 14-55-5467zzqltupfafLumca Mary Grace Other [employer] Other Start: 75-75-8073Amkznijcv encounterAbdul QadirFPG NephrologyStart: 10-26-2022 End: 59-88-1740nwpczigaocTC JOHN PERDOMOFacility:E0Qomkc: 08-30-2022 End: 13-95-2242iwsywfbzctSwbed Mary Grace Other [employer] Other Start: 44-50-9937Hryxfn outpatient visit 25 minutes Geneva QadirFPG NephrologyStart: 08-24-2022 End: 76-48-6552ljvqphjmvpDD JOHN Mcdonough HERRINGFacility:Q3Ovdgn: 08-23-2022 End: 94-61-1112mnlylfkguvNWSIJ QADIRFacility:T3Qfrar: 06-13-2022 End: 92-84-8287kvxzkgfldxOY KARTHIK JESSARBELFacility:U8Vlgfb: 06-10-2022 End: 76-45-2652uiyozvxiueAX KARTHIK GABBIELFacility:W2Ofqgr: 06-02-2022 End: 60-46-0599xljskdipjwLM KARTHIK SEOELFacility:Q4Ctjid: 06-01-2022 End: 71-82-3547fdgzjlfdumAR JOHN Mcdonough HERRINGFacility:W5Nfrph: 05-30-2022 End: 26-18-6442rqtataqxmmHnmgc Mary Grace Other [employer] Other Start: 14-17-9060Rtxyqp outpatient visit 25 minutes Geneva QadirFPG NephrologyStart: 05-27-2022 End: 63-91-9670fymzavqngrYI DANIEL A HERRINGFacility:M7Nwbnf: 05-23-2022 Telephone encounterAbdul QadirFPG NephrologyStart: 05-23-2022 End: 95-55-1978ncynbfgtevMA DANIEL A [employer] Other Start: 05-14-2022 End: 52-43-5154cnvygmthyfTKRFSPF BOESFacility:C1Dvlmz: 05-12-2022 End: 36-91-9942vcuingywgnDkrpu Mary Grace Other [employer] Other Start: 09-17-3523Diyutvdgr encounterAbdul QadirFPG NephrologyStart: 05-11-2022 End: 16-82-5321dolamwdqqyWEWKMNR BOESFacility:D4Oeifg: 03-17-2022 End: 09-88-4296ffltfqcysrOE DANIEL A HERRINGFacility:O9Tptxm: 01-27-2022 End: 01-90-6223vcsixpjxrzZjsho Mary Grace Other [employer] Other Start: 59-08-8031Nbcbuj outpatient visit 25 minutes Geneva QadirFPG NephrologyStart: 01-21-2022 End: 37-32-6924ougfiwbwrbQKAyde PERDOMOFacility:C6Fytpa: 01-17-2022 End: 26-16-3154hfjvckqphiJD DANIEL A HERRINGFacility:D0Nbnxr: 01-13-2022 End: 65-96-4340krkxacmkkbItnfo Mary Grace Other [employer] Other Start: 58-71-5153Ozvpkcpdg encounterAbdul QadirFPG NephrologyStart: 52-72-4034Ubmnlomwh encounterAbdul QadirFPG NephrologyStart: 12-16-2021 End: 68-51-2659kpmpfsppgeSG DANIEL A [employer] Other Start: 12-09-2021 End: 73-39-0222vssisbpxalAQOYRJ HERRINGFacility:UTMCStart: 12-08-2021 End: 65-23-2562nlejvohkwsIqiwa Mary Grace Other [employer] Other Start: 93-63-3465Ihfwuicsi encounterAbdul QadirFPG NephrologyStart: 12-07-2021 End: 98-98-9358kkuwwpylywFM DANIEL A HERRINGFacility:E7Dvrjk: 12-06-2021 End: 40-53-0431vhvhdeqcmhSL JOHN A HERRINGFacility:L8Oxezh: 12-01-2021 End: 27-89-3044hhmzbvyuvuQX JOHN A HERRINGFacility:H3Uoxsx: 11-19-2021 End: 22-30-7602wjfsswxzznPJ JOHN A HERRINGFacility:R7Laxln: 11-01-2021 End: 90-08-7492kamzrcvfyrBkthz Mary Grace Other [employer] Other Start: 63-71-2727Jxywhyasf by computer linkAbdul Mary Grace FPG NephrologyStart: 10-28-2021 End: 69-78-1341ivvoornkwhDabtv Mary Grace Other [facility] [employer] Other Start: 22-81-9835Nplybquqt encounterAbdul QadirFPG NephrologyStart: 10-13-2021 End: 76-00-2081hprsdoadwvGyoau Mary Grace Other [employer] Other Start: 75-25-9561Bvulpliye by computer linkAbdul Mary Grace FPG NephrologyStart: 10-06-2021 End: 77-00-5311wmzavfkygzXlipl Mary Grace Other [employer] Messenger Other Start: 22-02-5970Mfqmilzib encounterAbdul QadirFPG NephrologyStart: 09-21-2021 End: 77-95-6837ccypxzfatsIszli Mary Grace Other [employer] Other Start: 67-32-8346Sigmwdtrs encounterAbdul QadirFPG NephrologyStart: 09-20-2021 End: 54-40-8492xltkcdxlmgPjpyw Mary Grace Other [employer] Other Start: 88-70-8306Nmuyuh outpatient visit 25 minutes Geneva QadirFPG NephrologyStart: 08-01-2021 End: 65-01-8362jdrkgsjmrrRrewq Mary Grace Other [employer] Other Start: 61-85-9926Iittgujvx by computer linkAbdul Mary Grace FPG NephrologyStart: 07-18-2021 End: 38-98-3193byxnwpmczkQwvit Mary Grace Other [employer] Other Start: 39-97-7352Thizvvczs by computer linkAbdul Mary Grace FPG NephrologyStart: 05-18-2021 End: 78-08-5862fkjhadeofyCeacc Mary Grace Other [employer] Other Start: 78-07-5805Cksomi outpatient visit 25 minutes Geneva QadirFPG Nephrology Procedures DateProcedureProcedure DetailPerforming ClinicianStart: 97-92-6060Qijnxj-up visitFollow-upMELINDA TUCKERStart: 68-65-5299Xqucbs field xm uni/bi w/interp extended examJothania eTran DO Work Phone: Start: 11-26-2024 End: 43-10-6155Bhoqt medical xm&eval comprhnsv estab pt 1/>Corneal scar, right eyeJothania Teran DO Work Phone: comment on above:Corneal scar, right eye (Primary Dx); Dry eyes; 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 (CMS/HCC); Primary open angle glaucoma (POAG) of both eyes, mild stageStart: 05-15-2024 End: 48-02-3271Jkvryldijtxm ophthalmic imaging optic nerveJothania Teran DO Work Phone: Start: 05-15-2024 End: 93-34-2670Iabig medical xm&eval comprhnsv estab pt 1/>Primary open angle glaucoma (POAG) of both eyes, mild stage (CMS/HCC)Mirta Teran DO Work Phone: comment on above:Primary open angle glaucoma (POAG) of both eyes, mild stage (CMS/HCC) (Primary Dx); 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 (CMS/HCC); Corneal scar, right eye; Dry eyesStart: 47-41-1368Qd soft tissue head & neck real time imge Philip Love MD Work Phone: Plan of Treatment DateCare ActivityDetailAuthorStart: 53-41-7205Gnqrbpsh screeningDiabetes: Retinopathy ScreeningNOME HealthcareStart: 06-04-2025 End: 46-91-0802Bypkffx encounter vwmvnuxzy14/03/2025 1:15 PM EST Office Visit [facility] [address] [place] [address] Mirta Teran, [address] [place] [address] [facility] EyeStart: 05-15-2025 Glaucoma screeningDiabetes: Retinopathy ScreeningCEN[facility]AL [facility] HealthcareStart: 20-17-8213Ohkjmjgcx vaccinationCENTRAL VALLEY MEDICAL CENTER HealthcareStart: 11-26-2024 End: 11-81-7222Ydrncee encounter procedureNOMS NB OPHTComment on above:Arrived Start: 89-44-1717Puhxcskbr vaccinationInfluenza Vaccine (#1)[facility] Start: 49-59-4362Xssnxftzkh A1c measurementDiabetes: Hemoglobin W2JNYIDMercy Hospital St. LouisStart: 04-50-4110Fcbfseqtf for malignant neoplasm of breastMammogram [facility] LouisStart: 11-78-9380Vjkarzpuijhl Vaccine: 65+ Years (1 of 2 - PCV) Pneumococcal Vaccine: 65+ Years (1 of 2 - PCV)[facility] HealthcareStart: 1970 Urine screening for proteinDiabetes: Urine Protein ScreeningMercy Hospital St. [facility] Start: 35-03-7648Cvwiplxnafis Vaccine: 65+ Years (1 of 2 - PCV)Pneumococcal Vaccine: 65+ Years (1 of 2 - PCV)[facility] HealthcareStart: 1951Medicare Annual Wellness (AWV)Medicare Annual Wellness (AWV)[facility] HealthcareStart: 1951 Screening for malignant neoplasm of colonNOME HealthcareImmunofixation for Urine [facility] - Serum or [facility] panel - Serum or Plasma [facility] 1999 panel - Serum or Plasma [facility] panel - Serum or Plasma [facility] 1999 panel - Serum or Plasma [facility] 1999 panel - Serum or Plasma [facility] Immunizations Immunization DateImmunizationNotesCare ProviderFacilityNEGATED: Highlighted row has not occurred!24-23-7446oafbjuxcm, high dose seasonal, preservative-free Patient ObjectionAbdul Mary Grace Other [facility] [employer] Other Payers DatePayer CategoryPayerPolicy [id number] Health InsuranceMEDICAL MUTUAL [id number] 2016MedicareMEDICARE [id number] [id number] [id number] 2.16.840.1.889281.3.57[id number] 2.16.840.1.380246.3.57[id number] 2.16.840.1.935900.3.57[id number] 2.16.840.1.283938.3.57[id number] 2.16.840.1.814532.3.579.[id number] 2.16.840.1.302785.3.57[id number] 2.16.840.1.049162.3.57[id number] 2.16.840.1.044445.3.57[id number] 2.16.840.1.153838.3.57[id number] 2.16.840.1.443859.3.57[id number] 2.16.840.1.951969.3.57[id number] 2.16.840.1.624509.3.57[id number] 2.16.840.1.640217.3.57[id number] 2.16.840.1.043555.3.57[id number] 2.16.840.1.268750.3.579.[id number] 2.16.840.1.111933.3.579.[id number] 2.16.840.1.215537.3.57[id number] 2.16.840.1.405766.3.579.2.71454-16-8976Qskrqkj7771232 2.16.840.1.265080.3.579.2.[id number] 2.16.840.1.662331.3.579.2.99407-00-7899Gecqpip3054160 2.16840.1.682111.3.57[id number] 2.16.840.1.145100.3.57[id number] 2.16.840.1.852517.3.579.2.1259Self-paySelf Pay [id number] [id number] Social History DateTypeDetailFacilityUnknown if ever smokedNoozarks medical center Mobile Messenger Other Start: 52-74-8511Lyb Assigned At [facility] Mobile Messenger Other Start: 11-23-2017 End: 19-32-9016Ddfshpg smoking status NHISNever smoked tobacco (finding) [facility]art: 53-30-1285Rwx Assigned At [facility]art: 05-13-2024 End: 34-39-5074MhsOeduey (finding)[facility] Healthtart: 51-34-0649Wqbntqq use and exposureSmokeless tobacco non-userNOMS Healthcare Start: 66-05-9563Ztyieotuh beverage intakeLifetime non-drinker (finding)[facility] HealthcareStart: 81-86-5474Qntazgl of Social functionNOMS HealthcareStart: 93-56-9854Emzwfmz Commentcaffeine intake: 1-2 cups per day soda/pop 1-2 cans per weekNOMS HealthcareStart: 82-34-2166Hejwdw identityIdentifies as female gender (finding)[facility] HealthcareStart: 29-10-4146OnrJfjdvzGSBJ Healthcare Clinical Notes 04-27-2020 to 05-04-2025 Note Date & PwvqVhelDketxepm39-67-5666 NotePt has DC orders. SS consult for CHF. Trudy RN talked to pt, she's had HF for around 6 years and is confident in managing everything herself.[facility]11-02-2025 Note Attestation signed by Jazzmine Kelsey [...] Faculty, Division of Nephrology, Department of Medicine, [facility] Sciences. Nephrology Progress Note [...] and essential hypertension who was admitted to [facility] as a transfer from [facility] on 05/01/2025 after she initially [...] Dose Status allopurinol (Zyloprim) 100 mg tablet [id number] TAKE (more content not included)... [facility]11-02-2025 Note Attestation signed by Luis Carrero [...] Denies chest pain or dyspnea. Discomfort at [facility] site with bruising on right neck. Feels a lot better. Awaiting nephro input. Subjective: Claudia Estrella is a 75 y.o. female with a past medical history notable for hypertension, HFpEF, CAD s/p CABG 2020, hyperlipidemia, CKD 4, and diabetes who presents from [facility] cardiology clinic due to worsening dyspnea on [...] Value Ventricular Rate 74 Atrial Rate 74 AK Interval 168 QRS DURATION 68 QT Interval 410 QTC CALCULATION(BAZETT) 455 P [place] 64 R-[place] 15 T Wave [place] 103 Impression Normal sinus rhythm Abnormal QRS-T [...] Echo (TTE) w/wo Imaging (more content not included)...[facility]11-01-2025 Note05/03/25 1305 Home Oxygen Therapy Evaluation Home Oxygen Therapy No Pulse Oximetry on room air at Rest 92 Pulse Ox on room air while walking 89 Patient Qualification for home oxygen Does not qualify for home oxygen this visit $ Pulse Oximetry Multiple Patient does not qualify for home oxygen this visit.[facility]11-01-2025 Note Attestation signed by Eh Higuera [...] an 75 y.o. female who came from [facility] with prior history of hypertension [...] fever. She was advised to come to [facility] for CHF exacerbation. Subjective The [...] heart failure with preserved ejection fraction (HFpEF) ([facility]) Active Problems: Hypertensive disorder Stage 4 chronic kidney disease ([facility]) Type 2 diabetes mellitus ([facility]) Assessment and Plan Acute on chronic [...] mg IV BID, toshia (more content not included)...[facility]11-01-2025 Note Attestation signed by Luis Carrero [...] Denies chest pain or dyspnea. Discomfort at [facility] site with bruising on right neck. Feels a lot better. Awaiting nephro input. Subjective: Claudia Estrella is a 75 y.o. female with a past medical history notable for hypertension, HFpEF, CAD s/p CABG 2020, hyperlipidemia, CKD 4, and diabetes who presents from [facility] cardiology clinic due to worsening dyspnea on [...] Value Ventricular Rate 74 Atrial Rate 74 AK Interval 168 QRS DURATION 68 QT Interval 410 QTC CALCULATION(BAZETT) 455 [address] [place] 64 R-[place] 15 T Wave [place] 103 Impression Normal sinus rhythm Abnormal QRS-T angle, consider primary T wave abnormality Abnormal ECG When compared with ECG of 14-JUL-2020 06:44, ST no longer elevated in Lateral Nonspecific T wave abnormality now evident in Lateral Confirmed by Chela CARRERO, LUIS Olson (more content not included)...[facility]11-01-2025 NoteCase was discussed with the JOSUE on 05/01/2025. I agree with the history, physical, assessment, and plan of care. I discussed the findings and therapeutic plan. I agree with the documentation, except for any updates below. Shima Francois MDMagruder Memorial Hospital10-31-2025 Note Attestation signed by Eh Higuera [...] Progress Note - 05/02/2025 2:35 PM; Room: [address] [place] [address] Admission: 05/01/2025 5:55 PM; Length of stay: 1 days Code Status: Full Code Discharge Destination: TBD Discharge planning: TBD Overview Patient is seen for evaluation and management of heart failure exacerbation. Claudia Estrella is an 75 y.o. female who came from [facility] with prior history of hypertension [...] fever. She was advised to come to [facility] for CHF exacerbation. Subjective Patient was seen and examined at bedside. Afebrile, hemodynamically stable, starting well on 2 L per nasal cannula. Patient reports she does not use oxygen at home but believes it will help her with her daily functioning. Patient reports she was recently discharged from [facility] due to a CHF exacerbation. She states [...] with preserved ejection fraction (HFpEF) (CMS/[facility]) Active Problems: Hypertensive disorder Stage 4 [...] artery disease vis (more content not included)... [facility]10-31-2025 NoteCase was discussed with the JOSUE on 05/01/2025. I agree with the history, physical, assessment, and plan of care. I discussed the findings and therapeutic plan. I agree with the documentation, except for any updates below. Shima Francois MDUnBarberton Citizens Hospital10-31-2025 NoteMonitor kidney functions Avoid nephrotoxic drugs Appreciate nephrology recommendationsUnBarberton Citizens Hospital 05-02-2025 NoteGlucose management protocol Sliding scale Hypoglycemia managementUnBarberton Citizens Hospital10-31-2025 NoteResume home medicationsUnBarberton Citizens Hospital10-31-2025 NoteStart Bumex 2mg IV BID Weigh patient daily Fluid restriction Cardiology consult NPO at midnight for possible right heart cathUnBarberton Citizens Hospital 05-02-2025 NoteHospital Medicine History and Physical 05/02/2025 12:34 AM THE HOSPITALIST TEAM PREFERS TO USE [employer] CHAT FOR NON-URGENT COMMUNICATION 7AM-7PM. IF I DO NOT RESPOND WITHIN 20 MINUTES OR URGENT MATTERS, PLEASE CALL THROUGH THE RETAIL SALESMAN. FROM 7PM-7AM, PLEASE PAGE [phone](COVR). Chief Complaint SOB History of Present Illness Claudia Estrella is an 75 y.o. female who came from [facility] with prior history of hypertension [...] fever. She was advised to come to [facility] for CHF exacerbation. Review of [...] heart failure with preserved ejection fraction (HFpEF) ([facility]) Start Bumex 2mg IV BID Weigh patient daily Fluid restriction Cardiology consult NPO at midnight for possible right heart cath Hypertensive disorder Resume home medications Stage 4 chronic kidney disease ([facility]) Monitor kidney functions Avoid nephrotoxic drugs Appreciate nephrology recommendations Type 2 diabetes mellitus ([facility]) Glucose management protocol Sliding scale Hypoglycemia [...] this hospital stay by a member of [facility] Medicine. Past Medical History Medical History[1] [...] Resource Strain (CARDIA) D (more content not included)...[facility]10-30-2025 NoteUT Cardiology [facility] Subjective Chief Complaint Patient presents with [...] herpes simplex Stage 4 chronic kidney disease ([facility]/HCC) Type 2 diabetes mellitus (CMS/HCC) Chronic diastolic [...] heart failure with preserved ejection fraction (HFpEF) ([facility]) Family History Problem Relation Name Age [...] She has ongoing orthopne (more content not included)...[facility]10-14-2025 NoteUT Cardiology - [facility] Subjective Chief Complaint Patient presents with Follow-up Patient is here today for a follow up [facility] admission. Patient states she feels better [...] Rate and Rhythm: No (more content not included)...[facility]10-06-2025 NoteUT Cardiology - [facility] Subjective Claudia Estrella is a 74 [...] warm and dry. Neurologi (more content not included)...[facility] 01-29-2025 Evaluation note* Diagnosis Onset Date [...] diabetic chronic kidney diseaseacuteApril 22, 2025 11:30am [facility] Work Phone: 1(952) 545-295605-27-2025 NoteRight Eye Reliability was poor. Progression has been stable. Foveal threshold was normal. Findings include superior nasal step defect, inferior nasal step defect, central scotoma. Left Eye Reliability was borderline. Progression has been stable. Foveal threshold was normal. Findings include superior arcuate defect, inferior arcuate defect, central scotoma.[facility] [id number] History of Present illness Narrative* Mirta Teran, [...] artificial tears were recommended. documented in this encounterMercy Hospital St. [id number] NoteUT Cardiology - [facility] Subjective Claudia Estrella is a 74 y.o. year old female patient being seen for follow up 6 mo follow up CAD, chronic diastolic heart failure, and hypertension. Had labs last month for nephrology. She only had 1 tablet left of metoprolol (50mg) and took it yesterday. Hasn't had any today. She was told by [facility] that she can't get [...] Other Erythromycin Base Hydromorphone (more content not included)...[facility]11-13-2024 Note Right Eye Quality was good. Scan locations included subfoveal. Progression has been stable. Findings include abnormal foveal contour, intraretinal fluid, subretinal fluid. Left Eye Quality was good. Scan locations included subfoveal. Progression has been stable. Findings include abnormal foveal contour. 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 documented in this encounterMercy Hospital St. [id number] Evaluation note* Encounter Date Diagnosis Assessment Notes [...] has adequate Iron stores. Continue oral iron. [facility] Other 07-31-2023 Evaluation note* Encounter Date Diagnosis [...] has adequate Iron stores. Continue oral iron. [facility] Other 02-28-2023 Evaluation note* Encounter Date Diagnosis [...] past. Will defer this to the PCP. [facility] Other 11-28-2022 Evaluation note* Encounter Date Diagnosis [...] an adequate Iron stores. Continue oral iron. [facility] Other 11-21-2022 Evaluation note* Encounter Date Diagnosis Assessment Notes Treatment Notes Treatment Clinical Notes May, CKD (chronic kidney disease) stage 4, GFR 15-29 ml/min (ICD-10 - N18.4) [facility] Other 07-28-2022 Evaluation note* Encounter Date Diagnosis [...] an adequate Iron stores. Continue oral iron. [facility] Other 03-22-2022 Evaluation note* Encounter Date Diagnosis Assessment Notes Treatment Notes Treatment Clinical Notes Aug, Hypokalemia (ICD-10 - E87.6) [facility] Other 03-21-2022 Evaluation note* Encounter Date Diagnosis [...] an adequate Iron stores. Continue oral iron. [facility] Other 01-16-2022 Evaluation note* Encounter Date Diagnosis Assessment Notes Treatment Notes Treatment Clinical Notes Jul, Hyperuricemia (ICD-10 - E79.0) [facility] Other 11-16-2021 Evaluation note* Encounter Date Diagnosis [...] an adequate Iron stores. Continue oral iron. [facility] Other 11-02-2020 NoteRounds at this time with [...] MURPHY Amor notified Taylor Fisher & Maryan Lopez.[facility] HospitalComment on above:Result Comment: Electronically Signed By: Zuleyma Shin RN\.br\Date and Time Signed: 05/04/20 13:53 [id number] NoteBasic Information Cardiology Progress Subjective Cardiology consulted over weekend for chest discomfort post operatively. Her EKG was non-acute and troponin trended negative. She does have a bisque cleaner and reportedly had stress testing in August [...] mg/dL High (05/04/20 12:12:00) POC Device SN: [id number] (05/04/20 12:12:00) POC Username: NESHA COTA (05/04/20 [...] prefers all testing to be performed at [facility]. Faxed notes to her primary bisque cleaner's office, Dr Fish. Attempted to schedule stress testing with [facility]. Ordered: EC Stress Echo Complete w/ Contrast 2. Hypertension (I10: Essential (primary) hypertension) Continue current medications and follow up with primary bisque cleaner on discharge. 3. Diabetes (E11.9: Type 2 [...] discuss this management further with her primary bisque cleaner, but agreeable to starting statin for now. Patient is offered in-patient stress echocardiogram but declines as she wants to be discharged. She is offered out patient stress testing at [facility] tomorrow am and she prefers to have this done at [facility]. Per Central Scheduling at [facility], Dobutamine Stress Echo's are not performed at the facility. She will have close FU with Dr Fish to move forward with testing. D/W Dr Michel. Faxed info from [facility] Hospital stay to her primary bisque cleaner. Attestation Discussed patient findings and plan of [...] tab(s), Oral, Bedtime saturnino (more content not included)...[facility] HospitalComment on above: Result Comment: Electronically Signed By: Trudy SUAZO CNP\.br\Date and Time Signed: 05/04/20 13:15 EST\.br\Electronically Co-Signed By: Jay Jay Ramírez MD\.br\Date and Time Co-Signed: 05/04/20 13:19 [id number] NoteIV removed. nurse sql server dba emptied. patient and patients daughter verbalized understanding of discharge teaching. patient refused flu vaccination. patient did not verbalize any questions or concerns atthis time.[facility]11-[facility] Note Admission Information Admitting Physician - [...] another day versus following up with her bisque cleaner and she has opted to do the latter. This is reasonable as she is chest pain-free at rest as well as on exertion. Patient is already on lisinopril, metoprolol, aspirin. Lipitor 20 mg was added for further risk reduction. She will follow-up with her primary bisque cleaner Dr. Fish. Regarding her recent Ortho surgery she will do weightbearing activity as tolerated and use crutchesfor assistance with ambulation. Dr. Kushal Michel Hospitalist This report was transcribed using voice recognition software. Every effort was made to ensure accuracy, however, inadvertently computerized general service technician mistakes may be present. Significant Findings [...] pain) Ordered: Hospital Discharge Day 30 Min/Less 25631 2. Hypertension (I10: Essential (primary) hypertension) Ordered: Hospital Discharge Day 30 Min/Less 15172 3. Diabetes (E11.9: Type 2 diabetes mellitus without complications) Ordered: atorvastatin, 20 mg = 1 tab(s), Oral, Bedtime, # 30 tab(s), Refills(s) 1, Pharmacy: [facility]/pharmacy #[id number], 141.5, cm, 04/24/20 13:16:00 EDT, Height/Length Dosing, 69, kg, 05/02/20 5:50:00 EDT, Weight Dosing Hospital Discharge Day 30 Min/Less 34692 4. Acute medial meniscus tear of left knee (S83.242A: Other tear of medial meniscus, current injury, left knee, initial encounter) Ordered: Hospital Discharge Day 30 Min/Less 26800 5. Localized osteoarthritis of left knee (M17.12: Unilateral primary osteoarthritis, left knee) Ordered: Hospital Discharge Day 30 Min/Less 15125 6. No contraindication to deep vein thrombosis (DVT) prophylaxis (Z78.9: Other specified health status) Ordered: Hospital Discharge Day 30 Min/Less 17500 Bruit (R09.89: Other specified symptoms and signs [...] With When Contact Information Follow up with Health Therapist Within 1 week Additional Instructions: JOHN PERDOMO [address] [place] [address]- [employer] (1) Additional Instructions: David Talamantes [address] [place] [id number]- [employer] (1) Additional Instructions: Keep scheduled (more content not included)...[facility] HospitalComment on above:Result Comment: Electronically Signed By: RAMIREZ VIGIL, Kushal\.br\Date and Time Signed: 05/04/20 12:[id number] Amir rounded with patient earlier. CRM [...] time. Anticipated discharge 05/04/2020 home. CRM to follow.[facility] HospitalComment on above:Result Comment: Electronically Signed By: Ab WU, Terri Ramirez\.br\Date and Time Signed: 05/02/20 10:06 [id number] NoteReason for Consultation Chest pain postoperatively History of Present Illness Mrs. Estrella is a very pleasant 70-year-old diabetic female with hypertension, unknown cholesterol, previously seen by bisque cleaner Dr. Fish in September 2019 for what [...] testing apparently took place in a private bisque cleaner office, so I am unsure whether we [...] test in September 2019 at a private bisque cleaner 's office, reportedly LV dysfunction per thepatient, [...] she undergo a dobutami (more content not included)...[facility] HospitalComment on above:Result Comment: Electronically Signed By: Eleuterio VIGIL, John Marin.rashmi\Date and Time Signed: 05/02/20 08:35 [id number] NoteBasic Information Accompanied by: Family member Source of History: Self Present at Bedside: Family member Referral Source: Recovery room History Limitation: None Chief Complaint chest pain History of Present Illness Pt is a 70 F PMH HTN, HLD admitted from PACU. pt had a repair of a left medial meniscus tear with Dr. Talamantes of [facility]. Pt was in PACU recovering, had [...] 84 mg/dL (05/01/20 16:07:00) POC Device SN: [id number] (05/01/20 16:07:00) POC Username: ALEXIA HALL (05/01/20 16:07:00) Diagnostic Results EKG NSR [address]-T wave changes Images No qualifying data available. Assessment/Plan 1. Other chest pain (R07.89: Other chest pain) - possible ACS, risk factors include DM, HTN, obesity - telemetry, troponin - ASA, fasting lipid profile - consult [facility] cardiology 2. Hypertension (I10: Essential (primary) hypertension) [...] acetaminophen 325 mg Tab (more content not included)...[facility] HospitalComment on above:Result Comment: Electronically Signed By: JUN VIGIL, Nhung\.br\Date and Time Signed: 05/01/20 18:30 [id number] Note [id number]:127[facility] Evaluation noteNo hearo.fmMin[place] Mobile Messenger Other Evaluation note* Diagnosis Onset Date Resolution Status Anemia of renal disease acuteCKD (chronic kidney disease) stage 4, GFR 15-29 ml/minacuteHyperlipidemia [id number]khhczmqtossqorbPkvlgocddyy hematuriaacuteSecondary hyperparathyroidismacuteType 2 diabetes mellitus with diabetic chronic kidney diseaseJ.W. Ruby [facility] Hospital Work Phone: Evaluation note* Diagnosis [...] diabetic chronic kidney diseaseacuteMay 13, 2024 3:17pm [facility] Work Phone: Evaluation note* Diagnosis Primary open angle glaucoma (POAG) of both eyes, mild stage (CMS/HCC)- Primary 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 (CMS/HCC) Corneal scar, right eye Unspecified corneal opacity Dry eyes Unspecified tear film insufficiency documented in this encounter [facility] HealthcareEvaluation noteNo assessment information availableOur [facility] Of [facility] Work Phone: Evaluation note* Diagnosis Corneal scar, right eye- Primary Unspecified corneal opacity Dry eyes Unspecified tear film insufficiency 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 (CMS/HCC) Primary open angle glaucoma (POAG) of both eyes, mild stage documented in this encounter [facility] HealthcareEvaluation note* Diagnosis Onset Date [...] with diabetic chronic kidney diseaseacuteJuly 2024 11:35am [facility] Work Phone: Evaluation note* Diagnosis Primary open angle glaucoma (POAG) of both eyes, mild stage documented in this encounter [facility] HealthcareHistory general Narrative - Reported* Type Description Date Medical History hypertension Medical HistoryDiabetic -Medical HistoryosteoporosisMedical Historyherpes of the eyeMedical HistoryHTNMedical Historychronic kidney disease, stage 3Medical HistoryosteopeniaMedical HistorygoiterMedical Historyprolapsed cervical intervertebral discMedical HistoryDM 2Medical HistoryGLAUCOMASurgical History appendixSurgical Historyeyelid rsgilfj02/2018Surgical History2 c-sectionSurgical HistoryappendectomySurgical HistoryC-section x 2Surgical Historyovarian cyst removalSurgical HistorycholecystectomySurgical Historygall bladder removal Surgical Historythyroid bx x 2Surgical HistoryRT foot surgerySurgical Historyr/o ovarian cystSurgical Historydouble heart bypass07/13/2020urgical Historycataract surgery11/2019Surgical Historyarthroscopic surgery of left knee05/01/20urgical HistorycycstocopySurgical Historyright eye dagdkqr72/2021Hospitalization History see above [facility] Other History general Narrative - Reported* Type Description Date Medical History hypertension Medical HistoryDiabetic -Medical HistoryosteoporosisMedical Historyherpes of the eyeMedical HistoryHTNMedical Historychronic kidney disease, stage 3Medical HistoryosteopeniaMedical HistorygoiterMedical Historyprolapsed cervical intervertebral discMedical HistoryDM 2Medical HistoryGLAUCOMAMedical History COVID 07/31/2021urgical HistoryappendixSurgical Historyeyelid romxhqn08/2018 Surgical History2 c-sectionSurgical HistoryappendectomySurgical HistoryC-section x 2Surgical Historyovarian cyst removalSurgical HistorycholecystectomySurgical Historygall bladder removalSurgical Historythyroid bx x 2Surgical HistoryRT foot surgerySurgical Historyr/o ovarian cystSurgical Historydouble heart bypass 07/13/2020urgical Historycataract surgery11/2019Surgical Historyarthroscopic surgery of left knee05/01/20urgical HistorycycstocopySurgical Historyright eye bxrvxem98/2021Surgical HistorySTEROID IMPLANT IN RIGHT EYE08/2021Hospitalization Historysee above [facility] Other History general Narrative - Reported* Type Description Date Medical History hypertension Medical HistoryDiabetic -Medical HistoryosteoporosisMedical Historyherpes of the eyeMedical HistoryHTNMedical Historychronic kidney disease, stage 3Medical HistoryosteopeniaMedical HistorygoiterMedical Historyprolapsed cervical intervertebral discMedical HistoryDM 2Medical HistoryGLAUCOMAMedical History COVID 07/31/2021urgical HistoryappendixSurgical Historyeyelid hlydbcq13/2018 Surgical History2 c-sectionSurgical HistoryappendectomySurgical HistoryC-section x 2Surgical Historyovarian cyst removalSurgical HistorycholecystectomySurgical Historygall bladder removalSurgical Historythyroid bx x 2Surgical HistoryRT foot surgerySurgical Historyr/o ovarian cystSurgical Historydouble heart bypass 07/13/2020urgical Historycataract surgery11/2019Surgical Historyarthroscopic surgery of left knee05/01/20urgical HistorycycstocopySurgical Historyright eye xotcerf45/2021Surgical HistorySTEROID IMPLANT IN RIGHT EYEurgical History RIGHT HEART CATH12/2021Hospitalization Historysee above [facility] Other Reason for referral (narrative)No reason for referral information availableOur Lady Of [facility] Work Phone: Summary Purpose Family History No [...] disease) stage 4, GFR 15-29 ml/min Hyperlipidemia [id number] Hyperuricemia Hypokalemia Microscopic hematuria Secondary hyperparathyroidism Type 2 diabetes mellitus with diabetic chronic kidney disease Chief Complaint RENAL 4 MONTH F/U Reason for Visit Anemia of renal dise ase CKD (chronic kidney disease) stage 4, GFR 15-29 ml/min Hyperlipidemia [id number] Hyperuricemia Hypokalemia Microscopic hematuria Secondary hyperparathyroidism Type [...] section and content) DATE CREATED AUTHOR 03/07/2021 [facility] DATE CREATED AUTHOR AUTHOR'S ORGANIZ ATION 08/05/2021 [facility] DATE CREATED AUTHOR AUTHOR'S ORGANIZ ATION 12/16/2021 [facility] DATE CREATED AUTHOR AUTHOR'S ORGANIZ ATION 10/29/2022 [facility] DATE CREATED AUTHOR AUTHOR'S ORGANIZ ATION 11/29/2024 [facility] DATE CREATED AUTHOR AUTHOR'S ORGANIZ ATION 05/09/2025 [facility] REASON FOR VISIT (unrecogniz ed [...] MemberRelationshipSpecialtyStart DateEnd Date Unallocated, Hudson Robertson MD [facility] [place] [place] [address] PCP - GeneralFamily Medicine08/18/23 John Perdomo MD [address] [place] [id number] Referring PhysicianOrthopaedic Yhcqwql02/6/23Team MemberRelationshipSpecialty Start DateEnd Date UnallocatedHudson MD [address] [place] [address] [facility]CP - [facility]Mir[facility]08/18/23 John Perdomo MD [address] [place] [address] Referring PhysicianOrthopaedic Vcravhi90/6/23 Team Status: Active Member Role Status Dates John Perdomo DO Primary Care Provider Active Start: August 26, 2024 Genevajennifer Jenkins MDAttending ProviderActiveStart: August 26, 2024 Team Status: Inactive Member Role Status Dates John Perdomo DO Primary Care Provider Active Start: September 03, 2024 End: September 03bdjennifer Jenkins MDAttending ProviderActiveStart: September 03, 2024 End: September 03, 2024Team MemberRelationshipSpecialtyStart DateEnd Date Unallocated, Noms MD Marcelo [facility] [place] [address] PCP - [facility]08/18/23 John Perdomo MD [address] [place], [place] [id number] Referring PhysicianOrthuintah basin medical centeredic Yvmigao06/6/23Team MemberRelationshipSpecialty Start DateEnd Date Unallocated, Noms MD Marcelo [address] [place] [address] PCP - [facility] Medicine08/18/23 John Perdomo MD [address] [place] [id number] Referring PhysicianOrthuintah basin medical centeredic Vqrfooq47/6/23 Team Status: Active Member Role Status Dates [...] 29, 2025Team MemberRelationshipSpecialtyStart DateEnd Date UnallocatedHudson MD [facility] [place] [address] PCP - [facility] Medicine08/18/23 John Perdomo MD [address] [place] [phone] Referring PhysicianOrthopaedic Fjzrmtb59/6/23 Team Status: Active Member Role/Relationship Status Dates [...] MemberRelationshipSpecialtyStart DateEnd Date Unallocated, Hudson Robertson MD [address] [place] [id number] PCP - [facility] Medicine08/18/23 John Perdomo MD [address] [place] [id number] Referring PhysicianOrthopaedic Vcpihsn09/6/23 Goals (unrecognized section and content) Goals may [...] BE BASED ON THE PRIMARY CLINICAL RECORDS. [facility] [employer] [facility]. provides no warranty or guarantee of the accuracy or completeness of information in this document.
[2025-05-26 11:11] LABS: Albumin Level 3.4 g/dL (3.4-5.0); Anion Gap 14.8; Calcium 9.1 mg/dL (8.5-10.1); Carbon Dioxide 31.5 mmol/L (21.0-32.0); Chloride 99 mmol/L (98-107); Estimated GFR (African America 16 (>=60 mL/min/1.73m^2); Estimated GFR (Non-African Ame 13 (>=60 mL/min/1.73m^2); Glucose 92 mg/dL (74-106); Potassium 3.3 mmol/L (3.5-5.1); Sodium 142 mmol/L (136-145)
[2025-05-26 11:54] LABS: Blood Urea Nitrogen 77.0 mg/dL (7.0-18.0)
== END 2025-05-26 10:33 | disposition home or self-care (01) ==
PROVIDERS: PCP Family Medicine; Visit Provider Internal Medicine
DX: N18.9 Chronic kidney disease, unspecified (principal)
CPT/HCPCS: 36415; 80069